=== PATIENT | female | born 1940 | race Caucasian/White ===

== ENCOUNTER → 2021-05-10 09:07 | Outpatient (CLI) | payer MEDICARE, SELFPAY ==
--- NOTE | ~2021-05-10 | US_ITS ---
EXAMINATION: US aorta DATE: 05/10/2021 09:35 INDICATION: Abdominal aortic aneurysm without rupture. TECHNIQUE: Grayscale, color Doppler, and pulsed Doppler images of the aorta and common iliac arteries were obtained. COMPARISON: None. FINDINGS: The proximal aorta measures 2.4 cm. The mid aorta measures 1.5 cm. The distal aorta measures 0.8 cm. There is scattered atherosclerotic plaque along the abdominal aorta. The right common iliac artery me asures 8 mm. The left common iliac artery measures 7 mm. IMPRESSION: 1. Normal caliber abdominal aorta. No evident aneurysm. Reviewed, dictated and finalized at location A. ET RESEARCH CONSULTANT
== END ==
DX: I71.4 Abdominal aortic aneurysm, without rupture (principal)
CPT/HCPCS: 76775

== ENCOUNTER 2021-09-23 08:50 | Emergency (ER) | payer MEDICARE, SELFPAY ==
--- NOTE | ~2021-09-23 | XR_ITS ---
XR chest 2V DATE: 09/23/2021 09:30 INDICATION: Cough for 4 days. Atrial fibrillation. TECHNIQUE: 2 views COMPARISON: None FINDINGS: Left dual lead pacemaker with leads overlying right atrium and right ventricle. Borderline heart size. Aortic calcification and mild unfolding. No hilar or mediastinal enlargement. No pulmonary infiltrate or consolidation, pleural effusion or pulmonary vascular congestion or pneumo thorax. Status post cholecystectomy. Osteopenia. IMPRESSION: Borderline heart size Dual-lead left-sided pacemaker Aortic atherosclerosis No active pulmonary disease Reviewed, dictated and finalized at location A.
[2021-09-23 08:58] VITALS: BP 119/93; PULSE 91; RESP 16; TEMP 36.8; O2SAT 100
--- NOTE | 2021-09-23 09:06 | ED.URI ---
HPI - URI/Sore Throat General Chief Complaint: Upper Respiratory Infection Stated Complaint: Sore Throat/Cough Time Seen by Provider: 09/23/21 09:23 Source: patient and RN notes reviewed Mode of arrival: ambulatory Limitations: no limitations History of Present Illness HPI Narrative: 81-year-old female presented for complaint of cough for 3 days. Endorses cough is productive of brown sputum. Also reports sinus pressure and nasal drainage, hoarse voice today. She denies associated shortness of breath, fever, chest pain or dizziness. History of A. fib, pacemaker, MD 2014. She has been taking Tussin and Tylenol for symptoms. She has not vaccinated for COVID. MD elicited complaint: cough Related Data Home Medications Medication Instructions Recorded Confirmed furosemide 20 mg tablet tablet 09/23/21 spironolactone 25 mg tablet tablet 09/23/21 Allergies Allergy/AdvReac Type Severity Reaction Status Date / Time codeine Allergy Intermediate rash and Verified 09/23/21 08:59 hives morphine Allergy Intermediate rash and Verified 09/23/21 08:59 hallucination Penicillins Allergy Intermediate rash and Verified 09/23/21 08:59 hives b/p meds Allergy Unknown Other Uncoded 07/28/18 18:11 Review of Systems Review of Systems: CONSTITUTIONAL: Denies malaise, chills, sweats, fever EYES: Denies visual changes, redness, or discharge ENT: Reports rhinorrhea, congestion, sinus pain, sore throat CARDIOVASCULAR: Denies chest pain, palpitations, edema RESPIRATORY: Reports cough Denies dyspnea GASTROINTESTINAL: Denies abdominal pain, nausea, vomiting, diarrhea SKIN: Denies rash or itching MUSCULOSKELETAL: Denies myalgia NEUROLOGIC: Denies headache Exam Narrative: GENERAL: Ill-appearing, nontoxic EYES: conjunctivae clear ENT: Mucous membranes moist. TMs pearly melchor with dull light reflex bilaterally; no tragal tenderness. CHEST: Clear to auscultation, breath sounds equal. HEART: Regular rate and rhythm. No murmur heard. SKIN: Warm, dry, no rash. NEURO: Alert and oriented x3. PSYCH: Normal mood and affect Course Course Emergency Course: Patient is aware of diagnosis, understands and agrees to treatment plan. Anticipatory guidance given. Patient agrees to follow-up as directed and is aware of reasons to seek care at the emergency department. Portions of this record may have been created with voice recognition software Level of Care: Express Care Visit Vital Signs Vital signs: Vital Signs Temperature 98.2 F 09/23/21 08:58 Pulse Rate 91 09/23/21 08:58 Respiratory Rate 16 09/23/21 08:58 Blood Pressure 119/93 H 09/23/21 08:58 Pulse Oximetry 100 09/23/21 08:58 Oxygen Delivery Room Air 09/23/21 08:58 Temperature 98.2 F 09/23/21 08:58 Pulse Rate 91 09/23/21 08:58 Respiratory Rate 16 09/23/21 08:58 Blood Pressure 119/93 H 09/23/21 08:58 Pulse Oximetry 100 09/23/21 08:58 Oxygen Delivery Room Air 09/23/21 08:58 reviewed MDM - URI/Sore Throat MDM Narrative Medical decision making narrative: covid and strep negative CXR borderline heart size, left-sided pacemaker, aortic atherosclerosis. No active pulmonary disease. Reviewed with patient. Patient reported dizziness during the chest x-ray. Walking O2 sat performed, maintain 98% on room air. Patient declined doxycycline, requesting azithromycin. She states she needs to establish new PCP. She is advised to go to the ER for any worsening symptoms or concerns. V/U. She is stable and appropriate for outpatient treatment and follow-up. Differential Diagnosis Differential diagnosis: Likely upper respiratory infection, sinusitis and viral infection Lab Data Labs: Lab Results 09/23/21 Range/Units 09:13 POC SARS CoV-2 Ag Negative (Negative) Strep Screen Presumptive Negative *(Reference Range: Negative)* Imaging Data Radiologist's impression:
== END 2021-09-23 10:22 | disposition home or self-care (01) ==
PROVIDERS: Emergency Provider Nurse Practitioner Family
DX: J06.9 Acute upper respiratory infection, unspecified (principal); Z20.822 Contact with and (suspected) exposure to COVID-19
CPT/HCPCS: 71046; 87081; 87426; 87880; 99203; C9803; G0463

== ENCOUNTER 2022-03-07 09:33 | Outpatient (CLI) | payer MEDICARE, SELFPAY ==
[2022-03-07 20:43] LABS: Alanine Aminotransferase 15 U/L (6-35); Albumin Level 4.6 g/dL (3.5-5.1); Alkaline Phosphatase 50 U/L (38-126); Anion Gap 6 mmol/L (8-16); Aspartate Amino Transferase 48 U/L (14-36); Bilirubin,Total 0.7 mg/dL (0.2-1.3); Blood Urea Nitrogen 11 mg/dL (7-17); Calcium 9.3 mg/dL (8.4-10.2); Carbon Dioxide 30 mmol/L (22-30); Chloride 103 mmol/L (98-107); Cholesterol 234 mg/dL (0-200); Estimated Glomerular Filt Rate > 60; Glucose 99 mg/dL (65-110); HDL Direct 39 mg/dL; Potassium 4.2 mmol/L (3.4-5.0); Sodium 139 mmol/L (137-145); Triglycerides 112 mg/dL (<150)
[2022-03-07 20:45] LABS: Basophils Absolute Auto 0.1 K/mm3 (0.0-0.1); Basophils Percent Auto 0.9 % (0.2-1.2); Eosinophils Absolute Auto 0.1 K/mm3 (0-0.3); Eosinophils Percent Auto 1.5 % (0-4.4); Hematocrit 48.1 % (37.0-47.0); Hemoglobin 15.3 g/dL (12.0-15.0); Immature Granulocyte Absolute 0.03 K/mm3 (0.00-0.031); Immature Granulocyte Percent A 0.3 % (0-0.5); Lymphocytes Absolute Auto 3.13 K/mm3 (0.9-3.2); Lymphocytes Percent Auto 35.4 % (18.3-44.2); Mean Corpuscular HGB Conc 31.8 g/dl (32-36); Mean Corpuscular Hemoglobin 31.4 pg (26-34); Mean Corpuscular Volume 98.6 fl (80-100); Mean Platelet Volume 10.4 fl (7.4-10.4); Monocytes Absolute Auto 0.7 K/mm3 (0.1-0.6); Neutrophils Absolute Auto 4.8 K/mm3 (1.3-6.7); Neutrophils Percent Auto 53.9 % (45.5-73.1); Platelet Count Result 275 k/mm3 (150-375); Red Blood Count 4.88 M/mm3 (4.2-5.4); Red Cell Distribution Width 13.2 % (11.5-14.5); White Blood Count 8.8 K/mm3 (4.5-10.0)
[2022-03-07 20:53] LABS: LDL Cholesterol Direct 139 mg/dL
== END 2022-03-07 09:34 | disposition home or self-care (01) ==
PROVIDERS: PCP Family Medicine; Visit Provider Family Medicine
DX: I70.0 Atherosclerosis of aorta (principal); I48.91 Unspecified atrial fibrillation
CPT/HCPCS: 36415; 80053; 80061; 85025

== ENCOUNTER 2022-07-03 11:08 | Outpatient (CLI) | payer MEDICARE, SELFPAY ==
--- NOTE | ~2022-07-03 | XR_ITS ---
XR chest 2V 07/03/2022 11:18 Indication: Cough Procedure: 2 view chest Comparison: 09/23/2021 Findings: Cardiomegaly. Pacemaker leads in expected position. No focal air space disease, pulmonary e alejandro, pleural effusion or suspected pneumothorax. Mild thoracic spondylosis. Impression: 1: No acute cardiopulmonary disease. Reviewed, dictated and finalized at location B. Impression: 1: No acute cardiopulmonary disease.
== END 2022-07-03 11:09 | disposition home or self-care (01) ==
PROVIDERS: PCP Family Medicine; Visit Provider Family Medicine
DX: J06.9 Acute upper respiratory infection, unspecified (principal); R05.9 Cough, unspecified
CPT/HCPCS: 71046

== ENCOUNTER 2023-02-03 12:02 | Outpatient (CLI) | payer MEDICARE, SELFPAY ==
--- NOTE | ~2023-02-03 | XR_ITS ---
Supine view of the abdomen Clinical history: Abdominal pain Findings: Bowel gas pattern is nonspecific. No evidence for obstruction or free air. No abnormal mass lesion or calcification is seen. Degenerative change of the lumbar spine noted. Impression: No significant abnormality is seen. Reviewed, dictated and finalized at [facility], [place]. NESS IMPROVEMENT MANAGER Impression: No significant abnormality is seen.
== END 2023-02-03 12:03 | disposition home or self-care (01) ==
PROVIDERS: PCP Family Medicine; Visit Provider Family Medicine
DX: K58.9 Irritable bowel syndrome, unspecified (principal)
CPT/HCPCS: 74018

== ENCOUNTER 2023-05-19 10:43 | Outpatient (CLI) | payer MEDICARE, SELFPAY ==
--- NOTE | ~2023-05-19 | XR_ITS ---
EXAMINATION: XR sinus min 3V INDICATION: Chronic sinusitis, unspecified TECHNIQUE: Five views of the paranasal sinuses are obtained. COMPARISON: None available FINDINGS: There is normal pneumatization of the paranasal sinuses. No sinus opacification is identifi ed. The facial bones are unremarkable. The nasal septum is midline. IMPRESSION: 1. No definite radiographic evidence of sinus disease. If there is high clinical suspicion for sinusi tis, CT of the sinuses is recommended. Reviewed, dictated and finalized at location B. ING SUPERVISOR IMPRESSION: 1. No definite radiographic evidence of sinus disease. If there is high clinica l suspicion for sinusitis, CT of the sinuses is recommended.
== END 2023-05-19 10:44 | disposition home or self-care (01) ==
PROVIDERS: PCP Family Medicine; Visit Provider Family Medicine
DX: J32.9 Chronic sinusitis, unspecified (principal)
CPT/HCPCS: 70220

== ENCOUNTER 2023-10-30 12:58 | Outpatient (CLI) | payer MEDICARE, SELFPAY ==
--- NOTE | 2023-10-30 14:52 | WPDPFTINT ---
PFT Procedure Performed PFT Procedure Performed Plethysmography (Lung Vol) Diffusing Cap (DLCO) Flow Vol Loop Spirometry w/o Bronchodil PFT Interpretation This is a pulmonary function test with spirometry, plethysmography and diffusing capacity. The test was performed and results interpreted in accordance with the 2019 and 2005 ATS/ERS Task Force guidelines respectively using the Global Lung Function Initiative-2012 reference equations. Patient demonstrated good effort and cooperation. Reproducibility criteria were met. The quality of the spirometry maneuver was Grade A. Findings: Spirometry: The contour the inspiratory and expiratory flow tracing are normal. The FVC is 1.83 L, 83% predicted. The FEV1 is 1.28 L, 76% predicted. The FEV1: FVC ratio 70%. Plethysmography: The total lung capacity is 3.25 L, 71% predicted. The functional residual capacity is 1.73 L, 65% predicted. The residual volume is 1.30 L, 57% predicted. Diffusing capacity: The diffusing capacity unadjusted for hemoglobin and carboxyhemoglobin is 15.7, 88% predicted. The diffusing capacity adjusted for alveolar volume is 5.06, 120% predicted. Impression: There is a mild restrictive ventilatory abnormality with a normal FEV1. The spirometry is normal without evidence of an obstructive abnormality. The diffusing capacity is normal. There are no prior studies for comparison
== END 2023-10-30 12:59 | disposition home or self-care (01) ==
LOC: ANHPFT 13:04
PROVIDERS: PCP Family Medicine; Visit Provider Family Medicine
DX: J98.4 Other disorders of lung (principal); I48.91 Unspecified atrial fibrillation; K58.9 Irritable bowel syndrome, unspecified; I50.9 Heart failure, unspecified
CPT/HCPCS: 94375; 94726; 94729

== ENCOUNTER 2024-01-15 13:42 | Emergency (ER) | payer MEDICARE, SELFPAY ==
[2024-01-15 14:03] VITALS: BP 105/59; PULSE 98; RESP 16; TEMP 36.4; O2SAT 99
--- NOTE | 2024-01-15 14:34 | ED.URI ---
HPI - URI/Sore Throat General Chief Complaint: Upper Respiratory Infection Stated Complaint: ears/sob/congestions Time Seen by Provider: 01/15/24 14:18 Source: patient, RN notes reviewed and old records reviewed Mode of arrival: ambulatory Limitations: no limitations History of Present Illness HPI Narrative: 83-year-old female to Express Care with complaint of bilateral ear fullness, decreased hearing, popping sounds for 5 days. Patient denies treating at home. Patient denies fever, pain, cough, sore, recent illness. Patient able to tolerate fluids by mouth. Patient resting comfortably in exam room in no acute distress. Respirations even and nonlabored. Related Data Home Medications Medication Instructions Recorded Confirmed apixaban 5 mg tablet (Eliquis) 5 mg PO DAILY 01/15/24 01/15/24 aspirin 81 mg tablet 81 mg PO DAILY 01/15/24 01/15/24 dapagliflozin propanediol 10 mg 10 mg PO DAILY 01/15/24 01/15/24 tablet (Farxiga) Allergies Allergy/AdvReac Type Severity Reaction Status Date / Time codeine Allergy Intermediate rash and Verified 12/10/23 10:43 hives morphine Allergy Intermediate rash and Verified 12/10/23 10:43 hallucination Penicillins Allergy Intermediate rash and Verified 12/10/23 10:43 hives amiodarone AdvReac Intermediate Abdominal Verified 12/10/23 10:43 Pain [id number] Reductase AdvReac Intermediate pain Verified 12/10/23 10:43 Inhibitor b/p meds Allergy Unknown Other Uncoded 12/10/23 10:43 Predisone Allergy Unknown Unknown Uncoded 12/10/23 10:43 Review of Systems Review of Systems: All systems reviewed & are unremarkable except as noted in HPI and below Constitutional: Constitutional: Reports no additional constitutional complaints Eyes: Eyes: Reports no additional eye complaints ENT: Reports as per HPI, Reports hearing loss ( Bilateral) and Reports other ( bilateral ear fullness and popping sound) Cardiovascular: Cardiovascular: Reports no additional cardiovascular complaints, Denies chest pain and Denies dyspnea Respiratory: Respiratory: Reports no additional respiratory complaints, Denies cough and Denies dyspnea Musculoskeletal: Musculoskeletal: Reports no additional musculoskeletal complaints Neurologic: Reports system reviewed and no additional complaints, except as documented Psychiatric: Psychiatric: Reports no additional psychiatric complaints [facility] Family History Family History Sibling Cancer Diabetes mellitus Heart disease Social History Social History Smoking status: Never smoker Alcohol intake: never Substance use: never Substance use type: does not use Do You Feel Safe in your Home?: Yes Lack of Transportation: No Lack of Food: Never True Current Housing: I Have Housing Concerned About Future Housing: No Difficulty Paying Gas/Electric Bills: No Difficulty Paying for Meds: No Currently Unemployed: No Education: High School Diploma/GED Difficulty w/ Childcare or Family Care: No Living arrangements: alone Occupation/Education: retired Gender identity (if verbalized by the patient): Female Sexual Orientation (if Verbalized by the Patient): Straight or Heterosexual Spiritual care concerns: No Agree to blood products: Yes Comments At the time of my signature, I reviewed and agree with the nursing past medical, surgical, social, and family history. There is no relevant family history pertinent to the patient complaint. Exam Const: General: cooperative, healthy appearing, no acute distress, well developed, alert, well groomed and well nourished Nutritional Appearance: well nourished Orientation/consciousness: patient oriented x3 Limitations: no limitations HENMT: Head: normal to inspection Ears: external ears normal, Abnormal EAC present EAC tenderness bilateral and TM abnormal bulging, dull bilateral, erythematous bilateral and with fluid behind the TM bilateral Face/Nose/Sinus: Normal external nose present, Normal nares present, normal facial exam, No erythema and No edema Face and sinus: normal facial exam, no erythema and no edema Mouth: Yes Normal oral and palatal mucosa present Eyes: General: appearance normal, both eyes and all related structures Neck: Neck: normal visual inspection, full ROM and no meningeal signs Lymphatic: no lymphadenopathy noted and no lymphedema noted Chest: Chest palpation & inspection: normal inspection of the chest Resp: Effort & Inspection: normal respiratory effort and able to speak in complete sentences Auscultation: clear to auscultation bilaterally Cardio: Jugular venous distension: no JVD Rate: regular rate Rhythm: regular rhythm Back/Spine/Pelvis: Cervical Spine: cervical ROM normal Skin: General skin exam: normal color, no rashes or lesions noted and turgor normal Neuro: General: patient oriented x3, gait normal, moves all extremities and no meningeal signs Speech: normal speech Gait exam (Neuro): Normal gait present Extrem: General: normal to inspection, full ROM and capillary refill normal Psych: Appearance: grossly normal and well kempt Course Course Emergency Course: Some parts of this dictation were generated by voice recognition software and may contain typographical and/or grammatical inaccuracies. Level of Care: Express Care Visit Vital Signs Vital signs: Vital Signs Temperature 36.4 C L 01/15/24 14:03 Pulse Rate 98 01/15/24 14:03 Respiratory Rate 16 01/15/24 14:03 Blood Pressure 105/59 L 01/15/24 14:03 Pulse Oximetry 99 01/15/24 14:03 Oxygen Delivery Room Air 01/15/24 14:03 Temperature 36.4 C L 01/15/24 14:03 Pulse Rate 98 01/15/24 14:03 Respiratory Rate 16 01/15/24 14:03 Blood Pressure 105/59 L 01/15/24 14:03 Pulse Oximetry 99 01/15/24 14:03 Oxygen Delivery Room Air 01/15/24 14:03 reviewed MDM - URI/Sore Throat MDM Narrative Medical decision making narrative: 83-year-old female to Express Care with complaint of bilateral ear fullness, decreased hearing, popping sounds for 5 days. Patient denies treating at home. Patient denies fever, pain, cough, sore, recent illness. Patient able to tolerate fluids by mouth. Patient resting comfortably in exam room in no acute distress. Respirations even and nonlabored. on exam, bilateral TMs erythematous, dull, with fluid behind TMs. Consistent with bilateral otitis media. Patient is sitting comfortably in exam room nontoxic in appearance. Patient appropriate for outpatient treatment and follow-up. Discharge instructions reviewed with patient, as well as provided in writing per nursing staff. The instructions also include specific and strict return/GO TO THE ER as well as f/u information. All questions have been answered, and the patient deny any further questions with discharge and discharge plan. Some parts of this dictation were generated by voice recognition software and may contain typographical and/or grammatical inaccuracies. Differential Diagnosis Differential diagnosis: Likely upper respiratory infection, croup, otitis media, sinusitis, viral infection, bronchitis, influenza and pharyngitis Discharge Plan Discharge Clinical Impression: Bilateral acute otitis media Patient Disposition: Home, Self-Care Condition: Stable Instructions: Ear Infection (ED) Additional Instructions: -Use Flonase twice a day for 5 days then daily to help reduce the inflammation and dry up your sinuses. -Be sure to drink plenty of water with these medications at least 8 ounces with every dose and it is important to drink 8 to 10 glasses of water per day. Water is a natural decongestant -Using a vaporizer or humidifier at night will also help thin secretions and help with coughing up phlegm. -Follow up with primary care provider in 2-3 days if condition is not improving; or seek ER visit if you have trouble breathing, cannot drink enough fluids, have muffled voice, difficulty opening your mouth, or severe swelling. Prescriptions: New azithromycin 250 mg tablet 250 mg PO DAILY Qty: 6 0RF Rx Instructions: 250 mg orally. Take TWO tablets today, then one tablet daily for 4 days. fluticasone propionate [Flonase Allergy Relief] 50 mcg/actuation spray,suspension 1 spray intranasal BID Qty: 16 0RF Rx Instructions: administer into each nostril No Action Eliquis 5 mg tablet 5 mg PO DAILY aspirin 81 mg Tablet 81 mg PO DAILY dapagliflozin propanediol [Farxiga] 10 mg Tablet 10 mg PO DAILY Zyrtec 10 mg capsule 10 mg PO DAILY PRN (Reason: allergy symptoms) Qty: 20 0RF sertraline 25 mg tablet 25 mg PO DAILY Qty: 30 1RF Hold Instructions: .Provider Order bisacodyl 5 mg tablet,delayed release (DR/EC) 5 mg PO QHS PRN (Reason: constipation) Qty: 20 0RF Rx Instructions: As needed for severe constipation may take 10mg if 5 mg does not work. metoprolol succinate 25 mg tablet extended release 24 hr 12.5 mg PO DAILY Qty: 90 1RF spironolactone 25 mg tablet 25 mg PO DAILY Qty: 90 1RF aspirin [Adult Low Dose Aspirin] 81 mg tablet,delayed release (DR/EC) 81 mg PO DAILY Qty: 90 1RF furosemide 20 mg tablet 20 mg PO QAM Qty: 90 1RF Follow-up/Referrals: Jaleel Mcgovern MD [Primary Care Provider] -
== END 2024-01-15 14:50 | disposition home or self-care (01) ==
PROVIDERS: Emergency Provider Nurse Practitioner Family; PCP Family Medicine
DX: H66.93 Otitis media, unspecified, bilateral (principal); I48.91 Unspecified atrial fibrillation; E78.00 Pure hypercholesterolemia, unspecified; I10 Essential (primary) hypertension; K21.9 Gastro-esophageal reflux disease without esophagitis; Z87.891 Personal history of nicotine dependence; I25.2 Old myocardial infarction; Z95.1 Presence of aortocoronary bypass graft
CPT/HCPCS: 99213; G0463

== ENCOUNTER 2024-02-04 12:37 | Emergency (ER) | payer MEDICARE, SELFPAY ==
--- NOTE | ~2024-02-04 | XR_ITS ---
EXAMINATION: [id number] DATE: 02/04/2024 13:18 INDICATION: Right rib pain post fall TECHNIQUE: A frontal inspiratory view of the chest and 3 views of the right ribs were obtained. COMPARISON: Chest radiograph dated 07/03/2022 FINDINGS: No rib fractures identified. Mild reticular opacities at the bilateral lung bases with suggestion of some peripheral Latia B lines at the right costophrenic angle suggesting mild pulmonary edema. Mild linear discoid atelectasis in the left midlung zone. There is blunting at the bilateral cardiophrenic angles. No pneumothorax. Cardiomegaly. Dual lead pacemaker seen with leads projecting over the expec vickie locations of the right atrium and right ventricle. Cholecystectomy clips in right upper quadrant. IMPRESSION: 1. No evident rib fractures. 2. Mild reticular opacities at the bilateral lung bases suggesting likely small bilateral pleural eff usions with combination of mild pulmonary edema and atelectasis. 2. Cardiomegaly. Reviewed, dictated and finalized at location B. [employer] [employer] IMPRESSION: 1. No evident rib fractures. 2. Mild reticular opacities at the bilateral lung bases suggesting likely small bilateral pleural effusions with combination of mild pulmonary edema and atele ctasis. 2. Cardiomegaly.
[2024-02-04 12:54] VITALS: BP 112/51; PULSE 80; RESP 20; TEMP 36.1; O2SAT 98
--- NOTE | 2024-02-04 13:02 | ED.FALL ---
HPI - Fall General Chief Complaint: Fall Stated Complaint: Fall Injury/Right Side Injury Source: patient, family, RN notes reviewed and old records reviewed Mode of arrival: ambulatory Limitations: no limitations History of Present Illness HPI Narrative: 83 year old female accompanied by daughter who presents to express care with complaints of falling in her kitchen about 20 minutes prior to arrival striking her right lateral chest area on the table with bruising and discomfort on palpation to area. Patient reports that she did not hit her head and denies any dizziness or any syncope causing fall, denies any LOC.. Patient reports that she was getting something out of her refrigerator and just lost her balance. Patient is on daily blood thinners and aspirin. MD complaint: fall (hit right lateral chest on table with bruising and tenderness) Onset (ago): minute(s) (20 minutes prior to arrival) Fall from: standing Fall witnessed: yes, by family Loss of consciousness: none Symptoms prior to fall: none Location of injury: chest (right lateral chest area ) Severity scale (1-10): 2 Related Data Home Medications Medication Instructions Recorded Confirmed apixaban 5 mg tablet (Eliquis) 5 mg PO DAILY 01/15/24 02/04/24 dapagliflozin propanediol 10 mg 10 mg PO DAILY 01/15/24 02/04/24 tablet (Farxiga) Allergies Allergy/AdvReac Type Severity Reaction Status Date / Time codeine Allergy Intermediate rash and Verified 02/04/24 13:00 hives morphine Allergy Intermediate rash and Verified 02/04/24 13:00 hallucination Penicillins Allergy Intermediate rash and Verified 02/04/24 13:00 hives amiodarone AdvReac Intermediate Abdominal Verified 02/04/24 13:00 Pain [id number] Reductase AdvReac Intermediate pain Verified 02/04/24 13:00 Inhibitor b/p meds Allergy Unknown Other Uncoded 01/21/24 11:03 Predisone Allergy Unknown Unknown Uncoded 01/21/24 11:03 Review of Systems Review of Systems: CONSTITUTIONAL: Denies fever, chills, or sweats. EYES: Denies visual changes, redness, or discharge. ENT: Denies rhinorrhea, congestion, sore throat, or otalgia. CARDIOVASCULAR: Reports right lateral chest tenderness, no palpitations, or edema. RESPIRATORY: Denies cough or dyspnea. GASTROINTESTINAL: Denies abdominal pain, nausea, vomiting, or diarrhea. GENITOURINARY: Denies dysuria or hematuria. SKIN: Denies rash or itching. MUSCULOSKELETAL: Denies back pain, joint pain, or myalgia. NEUROLOGIC: Denies headache, numbness, admits to some right sided weakness post CVA PSYCHIATRIC: Reports history of anxiety or depression. All systems reviewed & are unremarkable except as noted in HPI and below PMFSH Past Medical History Medical History (Updated 02/05/24 @ 12:26 by Briseyda Conn NP) Afib Anxiety Aortic aneurysm CAD (coronary artery disease) Congestive heart failure CVA (cerebral vascular accident) Elevated cholesterol Hypertension Pacemaker Surgical History Surgical History H/O heart artery stent History of cholecystectomy History of ERCP Family History Family History Sibling Cancer Diabetes mellitus Heart disease Social History Social History Smoking status: Former smoker Additional smoking assessment comments: quit many years ago 1975 Alcohol intake: never Substance use: never Substance use type: does not use Do You Feel Safe in your Home?: Yes Lack of Transportation: No Lack of Food: Never True Current Housing: I Have Housing Concerned About Future Housing: No Difficulty Paying Gas/Electric Bills: No Difficulty Paying for Meds: No Currently Unemployed: No Education: High School Diploma/GED Difficulty w/ Childcare or Family Care: No Living arrangements: alone Occupation/Education: retired Gender identity (if verbalized by the patient): Female Sexual Orientation (if Verbalized by the Patient): Straight or Heterosexual Spiritual care concerns: No Agree to blood products: Yes Comments At time of signature, agree with nursing past medical, surgical, social and family history. There is no relevant family history pertinent to the presenting complaint Exam Narrative: GENERAL: Well-appearing, well-nourished, and in no acute distress. HEAD: Normocephalic, atraumatic. EYES: PERRLA and EOMI. ENT: Nares clear, no rhinorrhea or epistaxis. Mucous membranes moist.TM's normal throat pink with no swelling or lesions. NECK: Supple. no lymphadenopathy CHEST: coarse bases on auscultation. No respiratory distress. discomfort to right lateral chest with bruising from fall, denies dyspnea, SAO2 98% on room air HEART: Irregular rate and rhythm. No murmur heard. Normal peripheral pulses. ABDOMEN: Soft, nontender, nondistended, normal active bowel sounds. EXTREMITIES: Normal range of motion. No edema. SKIN: Warm, dry, no rash. NEURO: No focal deficits. Alert and oriented x3 some residual right sided weakness from previous CVA . Course Course Emergency Course: Patient is aware of diagnosis, understands and agrees to treatment plan.? Anticipatory guidance given.? Patient agrees to follow-up as directed and is aware of reasons to seek care at the emergency department. Portions of this record may have been created with voice recognition software Level of Care: Express Care Visit Vital Signs Vital signs: Vital Signs Temperature 36.1 C L 02/04/24 12:54 Pulse Rate 80 02/04/24 12:54 Respiratory Rate 20 02/04/24 12:54 Blood Pressure 112/51 L 02/04/24 12:54 Pulse Oximetry 98 02/04/24 12:54 Oxygen Delivery Room Air 02/04/24 12:54 Temperature 36.1 C L 02/04/24 12:54 Pulse Rate 80 02/04/24 12:54 Respiratory Rate 20 02/04/24 12:54 Blood Pressure 112/51 L 02/04/24 12:54 Pulse Oximetry 98 02/04/24 12:54 Oxygen Delivery Room Air 02/04/24 12:54 Reviewed MDM - Fall Differential Diagnosis Differential diagnosis: Likely other (contusion to right chest wall, fracture ribs, bruising to right chest wall) Medical Records Attestation: I reviewed the patient's medical records. Imaging Data Attestation: I personally reviewed and interpreted this imaging study as follows: My impression: no evidence of rib fracture, bibasilar opacities suggestive of pleural effusions pulmonary edema atelectasis, cardiomegaly Radiologist's impression: Launch?Image [facility] [place] [employer] [place] [employer] [place] [address] XRay Report Signed Patient: Abena Giron : 1940 MR#: [id number] Age: 83 Acct:[id number] Loc: [facility] ADM Date: 02/04/24Attending Dr: Ordering Physician: Briseyda Conn APRN Date of Service: 02/04/24 Procedure(s): XR ribs RT w PA CXR Accession Number(s): [id number] cc: Jaleel Mcgovern MD; Briseyda Conn APRN~ EXAMINATION: [id number] DATE: 02/04/2024 13:18 INDICATION: Right rib pain post fall TECHNIQUE: A frontal inspiratory view of the chest and 3 views of the right ribs were obtained. COMPARISON: Chest radiograph dated 07/03/2022 FINDINGS: No rib fractures identified. Mild reticular opacities at the bilateral lung bases with suggestion of some peripheral Latia B lines at the right costophrenic angle suggesting mild pulmonary edema. Mild linear discoid atelectasis in the left midlung zone. There is blunting at the bilateral cardiophrenic angles. No pneumothorax. Cardiomegaly. Dual lead pacemaker seen with leads projecting over the expected locations of the right atrium and right ventricle. Cholecystectomy clips in right upper quadrant. IMPRESSION: 1. No evident rib fractures. 2. Mild reticular opacities at the bilateral lung bases suggesting likely small bilateral pleural effusions with combination of mild pulmonary edema and atelectasis. 2. Cardiomegaly. Reviewed, dictated and finalized at location B. ESTATE RENTAL AGENT Dictated By: Baljit Samuel MD 02/04/24 1319 Signed By: <Electronically signed by Baljit Samuel MD in OV> Critical Care Time Critical Care Time Critical Care Time: No Discharge Plan Discharge Clinical Impression: Contusion of right chest wall, Opacities of both lungs present on chest x-ray Patient Disposition: Home, Self-Care Condition: Stable Instructions: Antibiotic Form, Chest Wall Pain (ED) Additional Instructions: Increase fluids especially juices and water [id number] cough and cold medicine of your choice for your symptoms Tylenol for pain May use topical pain medication such being georges with lidocaine to right lateral chest heat to the face 20-30 minutes 4-6 times a day for pain Salt water gargles, throat lozenges or throat sprays as desired Antibiotic as directed--finished the medication Monitor for any fever Incentive spirometry Recommend follow-up chest x-ray in 3 weeks or sooner if needed If your symptoms persist, change or worsen significantly before you can contact your personal physician then please, without delay, go to the emergency department for further evaluation. Follow-up with PCP in 7-10 days or sooner if needed Prescriptions: New azithromycin 250 mg tablet See Rx Instructions .ROUTE .COMPLEX Qty: 6 0RF Rx Instructions: For 250 mg dose pack: take 500 mg today (day 1), then 250 mg for 4 days (days 2-5) No Action Eliquis 5 mg tablet 5 mg PO DAILY dapagliflozin propanediol [Farxiga] 10 mg Tablet 10 mg PO DAILY fluticasone propionate [Flonase Allergy Relief] 50 mcg/actuation spray,suspension 1 spray intranasal BID Qty: 16 0RF Rx Instructions: administer into each nostril Zyrtec 10 mg capsule 10 mg PO DAILY PRN (Reason: allergy symptoms) Qty: 20 0RF bisacodyl 5 mg tablet,delayed release (DR/EC) 5 mg PO QHS PRN (Reason: constipation) Qty: 20 0RF Rx Instructions: As needed for severe constipation may take 10mg if 5 mg does not work. sertraline 25 mg tablet 25 mg PO DAILY Qty: 90 1RF Hold Instructions: .Provider Order metoprolol succinate 25 mg tablet extended release 24 hr 12.5 mg PO DAILY Qty: 90 1RF spironolactone 25 mg tablet 25 mg PO DAILY Qty: 90 1RF aspirin [Adult Low Dose Aspirin] 81 mg tablet,delayed release (DR/EC) 81 mg PO DAILY Qty: 90 1RF furosemide 20 mg tablet 20 mg PO QAM Qty: 90 1RF ciprofloxacin HCl 500 mg tablet 500 mg PO Q12H Qty: 10 0RF Follow-up/Referrals: Jaleel Mcgovern MD [Primary Care Provider] - Time of Disposition: 13:50 Quality [place] Coma Scale Eyes: Open Verbal: Oriented and Alert Motor: Follows Commands [place] Coma Total Score: 15
== END 2024-02-04 13:00 | disposition home or self-care (01) ==
PROVIDERS: Emergency Provider Registered Nurse; PCP Family Medicine
DX: S20.211A Contusion of right front wall of thorax, initial encounter (principal); W19.XXXA Unspecified fall, initial encounter; R91.8 Other nonspecific abnormal finding of lung field; Z87.891 Personal history of nicotine dependence; I48.91 Unspecified atrial fibrillation; I25.10 Atherosclerotic heart disease of native coronary artery without angina pectoris; I11.0 Hypertensive heart disease with heart failure; I50.9 Heart failure, unspecified; E78.00 Pure hypercholesterolemia, unspecified; Z95.0 Presence of cardiac pacemaker; Z95.5 Presence of coronary angioplasty implant and graft; Z86.73 Personal history of transient ischemic attack (TIA), and cerebral infarction without residual deficits; Z79.01 Long term (current) use of anticoagulants
CPT/HCPCS: 71101; 99213; G0463

== ENCOUNTER 2024-02-27 09:54 | Outpatient (CLI) | payer MEDICARE, SELFPAY ==
--- NOTE | ~2024-02-27 | CT_ITS ---
CT of the Abdomen and Pelvis: Indication: Abdominal pain Technique: 2.5 mm axial scans were obtained through the abdomen and pelvis following intravenous adm inistration of 100 cc of Omnipaque 350. Dose reduction technique was used on this scan by utilizing a utomated exposure control and iterative reconstruction technique. The dose-length product (DLP) was 5 72.86 mGy-cm. Findings: Scans through the lung bases demonstrate moderate bilateral pleural effusions, with associ ated bibasilar atelectatic change. The liver, spleen, pancreas, adrenals and kidneys are within normal limits. Cholecystectomy clips are present. There are extensive atherosclerotic calcifications of the aorta and iliac vessels.. No lym phadenopathy. No bowel obstruction or bowel wall thickening. There is sigmoid diverticulosis. There is minimal hazi ness in the central mesentery. Images through the pelvis were performed. Urinary bladder unremarkable. No pelvic mass seen. Small am ount of pelvic free fluid present. Impression: Moderate bilateral pleural effusions with bibasilar atelectatic change. Small amount of pelvic free fluid, nonspecific. Diverticulosis without definite acute diverticulitis. Reviewed, dictated and finalized at location . RVISOR CONTACT LENS Impression: Moderate bilateral pleural effusions with bibasilar atelectatic change. Small amount of pelvic free fluid, nonspecific. Diverticulosis without definite acute diverticulitis.
[2024-02-27 10:26] LABS: Estimated Glomerular Filt Rate 60
== END 2024-02-27 09:55 | disposition home or self-care (01) ==
PROVIDERS: PCP Family Medicine; Visit Provider Nurse Practitioner Family
DX: J90 Pleural effusion, not elsewhere classified (principal); J98.11 Atelectasis; R19.00 Intra-abdominal and pelvic swelling, mass and lump, unspecified site; K57.90 Diverticulosis of intestine, part unspecified, without perforation or abscess without bleeding; R10.9 Unspecified abdominal pain
CPT/HCPCS: 74177; Q9967

== ENCOUNTER 2024-03-09 15:16 | Outpatient (CLI) | payer MEDICARE, SELFPAY ==
--- NOTE | ~2024-03-09 | XR_ITS ---
XR chest 2V 03/09/2024 15:35 Indication: Edema. Procedure: 2 view chest Comparison: 07/03/2022 Findings: Cardiomegaly. Stable pacemaker leads. Small pleural effusions. Bibasilar airspace disease, left greater than right. There is atherosclerosis of the aorta. Impression: 1: Bibasilar airspace disease may represent atelectasis and/or pneumonia. 2: Small pleural effusions, left greater than right. 3: Cardiomegaly. Reviewed, dictated and finalized at location B. SPECIALIST Impression: 1: Bibasilar airspace disease may represent atelectasis and/or pneumonia. 2: Small pleural effusions, left greater than right. 3: Cardiomegaly.
== END 2024-03-09 15:17 | disposition home or self-care (01) ==
LOC: MICIMG 15:20
PROVIDERS: PCP Family Medicine; Visit Provider Family Medicine
DX: J84.09 Other alveolar and parieto-alveolar conditions (principal); J90 Pleural effusion, not elsewhere classified; I51.7 Cardiomegaly; R60.9 Edema, unspecified
CPT/HCPCS: 71046

== ENCOUNTER 2024-03-25 13:50 | Outpatient (CLI) | payer MEDICARE, SELFPAY ==
--- NOTE | ~2024-03-25 | XR_ITS ---
CHEST RADIOGRAPH, PA AND LATERAL CLINICAL HISTORY: I50.9 - Heart failure, unspecified PT SOB . COMPARISON: 03/09/2024 TECHNIQUE: PA and lateral views of the chest. FINDINGS The left mid lung is partially obscured due to pacemaker generator. Wires project over the right atrium and right ventricle. The remainder of the cardiomediastinal silhouette is partially obscured. Redemonstration of a large left-sided pleural effusion, largely unchanged from previous study. Right basilar atelectasis is also noted. The remainder of the lungs are clear. IMPRESSION: Persistent large left-sided pleural effusion with right basilar atelectasis. Reviewed, dictated and finalized at location A. TRUCTION MILLWRIGHT
== END 2024-03-25 13:51 | disposition home or self-care (01) ==
PROVIDERS: PCP Family Medicine; Visit Provider Family Medicine
DX: I50.9 Heart failure, unspecified (principal); J98.11 Atelectasis
CPT/HCPCS: 71046

== ENCOUNTER 2024-04-01 12:19 | Outpatient (CLI) | payer MEDICARE, SELFPAY ==
--- NOTE | ~2024-04-01 | CT_ITS ---
EXAMINATION:CT diagnostic chest w con DATE: 04/01/2024 13:06 INDICATION: Pleural effusion, not elsewhere classified. TECHNIQUE: Computed tomography (CT) of the chest was performed with 75 mL Omnipaque 350 intravenous c ontrast. Automated exposure control and iterative reconstruction technique were employed. The dose-le ngth product (DLP) was 199.80 mGy-cm. COMPARISON: CT abdomen and pelvis 02/27/2024 FINDINGS: There are small right and moderate-sized left pleural effusions. There is bilateral atelect asis with a dependent predominance. Cardiomegaly is noted. There are coronary artery calcifications. No pericardial effusion. 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 There is a left chest wall pacer with leads in the right atrium and right ventricle. There are c hanges of cholecystectomy. There are bridging endplate osteophytes at multiple levels in the spine, c onsistent with diffuse idiopathic skeletal hyperostosis (DISH). IMPRESSION: 1. Small right and moderate-sized left pleural effusions. 2. 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 Reviewed, dictated and finalized at location A. T CONTROLLER
[2024-04-01 13:01] LABS: Estimated Glomerular Filt Rate > 60
== END 2024-04-01 12:20 | disposition home or self-care (01) ==
PROVIDERS: PCP Family Medicine; Visit Provider Family Medicine
DX: J90 Pleural effusion, not elsewhere classified (principal); I77.1 Stricture of artery
CPT/HCPCS: 71260; Q9967

== ENCOUNTER 2024-04-04 08:36 | Inpatient (IN) | payer MEDICARE, SELFPAY ==
[2024-04-04] VITALS (15 sets, daily range): BP systolic 122–140; BP diastolic 63–97; PULSE 75–97; RESP 13–26; TEMP 36.4; O2SAT 95–100
--- NOTE | ~2024-04-04 | XR_ITS ---
EXAMINATION: XR chest 1V portable DATE: 04/08/2024 09:31 INDICATION: Pleural effusion. TECHNIQUE: A single frontal view of the chest was obtained. COMPARISON: Chest single view 04/07/2024 FINDINGS: There are airspace opacities in the lower lung zones, left worse than right. No pleural eff usion or pneumothorax. Cardiomegaly is noted. There is a left chest wall pacer with leads in the righ t atrium and right ventricle. IMPRESSION: 1. Worsened airspace opacities in the lower lung zones, left worse than right, consistent with atelec tasis versus pneumonia. 2. Cardiomegaly. Reviewed, dictated and finalized at location A. ELECTRIC TRAIN REPAIRER IMPRESSION: 1. Worsened airspace opacities in the lower lung zones, left worse than right, consistent with atelectasis versus pneumonia. 2. Cardiomegaly.
--- NOTE | ~2024-04-04 | XR_ITS ---
EXAMINATION: [id number] DATE: 04/07/2024 10:53 INDICATION: Left pleural effusion status post thoracentesis. TECHNIQUE: A single frontal view of the chest was obtained. COMPARISON: Chest single view 04/04/2024 FINDINGS: There are small pleural effusions. There are airspace opacities in left lower lung zone. No pneumothorax. Cardiomegaly is noted. There is a left chest wall pacer with leads in the right atrium and right ventricle. Surgical clips in the right upper quadrant are likely from cholecystectomy. IMPRESSION: 1. Small pleural effusions with improvement on the left status post thoracentesis. 2. Airspace opacities in left lower lung zone with interval improvement, likely atelectasis. 3. Cardiomegaly. Reviewed, dictated and finalized at location A. CLING SORTER IMPRESSION: 1. Small pleural effusions with improvement on the left status post thoracentes is. 2. Airspace opacities in left lower lung zone with interval improvement, likely atelectasis. 3. Cardiomegaly.
--- NOTE | ~2024-04-04 | XR_ITS ---
XR chest 1V portable DATE: 04/04/2024 12:56 INDICATION: Shortness of breath. History of congestive heart failure. TECHNIQUE: Portable upright AP chest on 04/04/2024 at 1255 hours COMPARISON: 04/01/2024 CT chest 03/25/2024 2 view chest FINDINGS: Cardiomegaly. Aortic calcification and unfolding. Left dual-lead pacemaker with leads overlying right atrium and right ventricle. Small right pleural effusion. Mild to moderate left pleural effusion with associated compressive atel ectasis at the base of the lingula and left lower lobe. There is slight atelectasis at the right lung base. The lungs otherwise appear clear. Osteopenia. IMPRESSION: Cardiomegaly Aortic atherosclerosis Mild right and djnd-ev-cgjqowyr left pleural effusions with associated compressive atelectasis at the lung bases, left greater than right Osteopenia Little interval change since 03/25/2024 Reviewed, dictated and finalized at location A. E JUMPER IMPRESSION: Cardiomegaly Aortic atherosclerosis Mild right and brcj-ir-ksezdxgq left pleural effusions with associated compress kvng atelectasis at the lung bases, left greater than right Osteopenia Little interval change since 03/25/2024
--- NOTE | ~2024-04-04 | US_ITS ---
EXAMINATION: US thoracentesis DATE: 04/07/2024 10:57 INDICATION: pleural effusion TECHNIQUE: The procedure and its risks, benefits, and alternatives were discussed with the patient. P otential risks discussed included bleeding, infection, and pneumothorax. The patient understood the r isks and agreed to proceed. The skin was prepped and draped in sterile fashion. 1% lidocaine was used for local anesthesia. Under ultrasound guidance, a 5 Fr catheter with trochar was advanced into the left pleural effusion. Fluid was aspirated. The catheter was removed, and a dressing was applied. The re were no immediate complications. FINDINGS: Ultrasound images demonstrate a left pleural effusion and the catheter within the fluid. IMPRESSION: 1. Successful ultrasound-guided thoracentesis yielding 900 mL of xochitl-colored fluid. Reviewed, dictated and finalized at location A. DIRECTOR
--- NOTE | 2024-04-04 12:35 | ECG_ITS ---
Test Date: 2024-04-04 13:14:16 Measurements Intervals [place] Rate: 79 P: 0 DC: 0 QRS: -53 QRSD: 202 T: 112 QT: 485 QTc: 558 Interpretive Statements ELECTRONIC VENTRICULAR PACEMAKER ATYPICAL ECG No previous ECG available for comparison Electronically Signed On 04-04-2024 15:34:46 ACQUISITION ANALYST by Kraig Josue M.D.
[2024-04-04 12:59] LABS: Basophils Absolute Auto 0.1 K/mm3 (0.0-0.1); Basophils Percent Auto 0.9 % (0.2-1.2); Eosinophils Absolute Auto 0.1 K/mm3 (0-0.3); Eosinophils Percent Auto 0.8 % (0-4.4); Hemoglobin 16.4 g/dL (12.0-15.0); Immature Granulocyte Absolute 0.02 K/mm3 (0.00-0.031); Immature Granulocyte Percent A 0.3 % (0-0.5); Lymphocytes Absolute Auto 1.77 K/mm3 (0.9-3.2); Mean Corpuscular HGB Conc 32.8 g/dl (32-36); Mean Corpuscular Hemoglobin 31.1 pg (26-34); Mean Corpuscular Volume 94.7 fl (80-100); Mean Platelet Volume 11.6 fl (7.4-10.4); Monocytes Absolute Auto 0.5 K/mm3 (0.1-0.6); Monocytes Percent Auto 7.3 % (2.6-8.5); Neutrophils Percent Auto 62.7 % (45.5-73.1); Platelet Count Result 244 k/mm3 (150-375); Red Blood Count 5.28 M/mm3 (4.2-5.4); Red Cell Distribution Width 19.1 % (11.5-14.5); White Blood Count 6.3 K/mm3 (4.5-10.0)
--- NOTE | 2024-04-04 13:37 | ED.SOB ---
HPI - SOB/Dyspnea General Chief Complaint: Shortness of Breath/Dyspnea Stated Complaint: sob Time Seen by Provider: 04/04/24 12:46 Source: patient and family (Two daughters) Mode of arrival: ambulatory Limitations: no limitations History of Present Illness HPI Narrative: Patient presents with shortness of breath. She denies any chest pain. She has a history of heart failure for which she was started on Entresto 2 months ago and also takes spironolactone. In addition she previously took Lasix 20 mg daily although this was recently changed by her primary care physician to be 40 mg daily. She did not yet take this morning's dose however. Patient notes her shortness of breath is particularly exertional but also even at rest with things like leaning forward. She hs a pacemaker in place, previously had AFib. She denies any orthopnea. She does not know if she has paroxysmal nocturnal dyspnea she states that lately she has been having difficulty sleeping. She has had a cough although she states that this is chronic and there have been no acute changes. Denies any fevers. She had an outpatient CT performed that showed pleural effusions. Patient is also on Farxiga and Eliquis, she took both of these this morning. Her pediatrician/medical doctor is Dr. Soares and her PCP is Dr Jaleel Mcgovern. She states her primary care physician wanted her to see/be referred to a data warehouse manager. Related Data Home Medications ?Medication ?Instructions ?Recorded ?Confirmed ?Last Taken ?Type apixaban 5 mg tablet (Eliquis) 5 mg PO DAILY 01/15/24 02/04/24 Unknown History dapagliflozin propanediol 10 mg 10 mg PO DAILY 01/15/24 02/04/24 Unknown History tablet (Farxiga) Allergies Allergy/AdvReac Type Severity Reaction Status Date / Time codeine Allergy Intermediate rash and Verified 03/25/24 12:49 hives morphine Allergy Intermediate rash and Verified 03/25/24 12:49 hallucination Penicillins Allergy Intermediate rash and Verified 03/25/24 12:49 hives amiodarone AdvReac Intermediate Abdominal Verified 03/25/24 12:49 Pain Wzezrih-FMI-RbO Reductase AdvReac Intermediate pain Verified 03/25/24 12:49 Inhibitor b/p meds Allergy Unknown Other Uncoded 03/25/24 12:49 Predisone Allergy Unknown Unknown Uncoded 03/25/24 12:49 PMFSH Past Medical History Medical History (Updated 04/04/24 @ 21:24 by Ginger Ledbetter MD) Peripheral vascular disease Hyperlipidemia Cerebrovascular accident (07/2022) status post TNK mechanical thrombectomy Chronic anticoagulation Atrial fibrillation h/o Coronary artery disease Heart failure with reduced ejection fraction Aortic aneurysm Hypertension Anxiety Surgical History Surgical History History of permanent cardiac pacemaker placement History of coronary artery stent placement History of ERCP History of cholecystectomy Family History Family History Sibling Cancer Diabetes mellitus Heart disease Social History Social History Social History: Has 4 daughters Surrogate medical decision maker: Mari Jara, daughter. Code status: Do not resuscitate. Smoking status: Former smoker Additional smoking assessment comments: quit in 1974 Alcohol intake: never Substance use: never Substance use type: does not use Do You Feel Safe in your Home?: Yes Lack of Transportation: No Lack of Food: Never True Current Housing: I Have Housing Concerned About Future Housing: No Difficulty Paying Gas/Electric Bills: No Difficulty Paying for Meds: No Currently Unemployed: No Education: High School Diploma/GED Difficulty w/ Childcare or Family Care: No Living arrangements: alone Occupation/Education: retired Spiritual care concerns: No Agree to blood products: Yes Exam Narrative: GENERAL: Well-appearing, well-nourished, and in no acute distress. HEAD: Normocephalic, atraumatic. EYES: Non injected, non icteric ENT: Nares clear, no rhinorrhea or epistaxis. NECK: Supple. CHEST: Speaking in full sentences. No respiratory distress. Pacemaker in place left anterior chest. Lungs are clear to auscultation without appreciable crackles although they are diminished at the bases HEART: Regular rate and rhythm. ABDOMEN: Soft, nondistended. EXTREMITIES: Normal range of motion. 2+ bilateral lower extremity edema. SKIN: Warm, dry, no rash. NEURO: No focal deficits. Alert and oriented x3. PSYCH: Normal mood and affect. Course Vital Signs Vital signs: Vital Signs Temperature 97.6 F 04/04/24 08:46 Pulse Rate 79 04/04/24 08:46 Respiratory Rate 20 04/04/24 08:46 Blood Pressure 125/63 04/04/24 08:46 Pulse Oximetry 100 04/04/24 08:46 Temperature 97.5 F L 04/04/24 21:04 Pulse Rate 77 04/04/24 21:04 Respiratory Rate 21 H 04/04/24 21:04 Blood Pressure 122/65 04/04/24 21:04 Pulse Oximetry 98 04/04/24 21:04 Oxygen Delivery Room Air 04/04/24 19:50 MDM - SOB/Dyspnea MDM Narrative Medical decision making narrative: Patient presents with shortness of breath that is exertional as as sometimes at rest but particular such as leaning forward. She has a history of heart failure for which she is on Entresto, spironolactone Lasix Farxiga. In the emergency department they are afebrile with vital signs within normal limits. Considered PE but Will defer ordering D dimer at this time given other conditions felt to be more likely and given she is already on Elliquis. BNP is elevated And chest x-ray and earlier CT do suggest that she needs increased diuresis. She had previously been on 20 mg daily furosemide but this had been increased to 40 mg daily recently. SHe did not take this morning's dose. Will give 40 mg IV. Elevated hemoglobin and hematocrit, possibly due to a degree of hemoconcentration. Patient is hypokalemic. Will replete and obtain magnesium level. This is normal. Urinalysis shows glucosuria and ketonuria but does not otherwise appear infected. However, she does have a very liquid stool. Stool culture and C diff ordered. Negative for C diff. I do believe patient further diuresis with possible consideration of thoracentesis. Discussed this plan with the patient and her daughters who are in agreement. Patient amenable to staying. She does confirm that in the event of cardiopulmonary arrest, she would prefer a natural and chest compressions and intubation are not in line with values/goals/wishes/desires. patient discussed with networks computer consultant hospitalist Pratibha. Patient will be admitted med surg (with telemetry given edema). Differential Diagnosis Differential diagnosis: Likely congestive heart failure (Acute exacerbation of), community acquired pneumonia, pulmonary embolism ((considered, as above)) and other (ACS, acute viral syndrome, bronchitis) Medical Records Attestation: I reviewed the patient's medical records. Medical records narrative: CT imaging from 04/01/2024 shows 1. Small right and moderate-sized left pleural effusions. 2. 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 Lab Data Attestation: I reviewed the patient's lab results. 04/04/24 12:54 04/04/24 13:29 Labs: Lab Results 04/04/24 04/04/24 04/04/24 Range/Units 12:54 13:29 14:00 WBC 6.3 (4.5-10.0) K/mm3 RBC 5.28 (4.2-5.4) M/mm3 Hgb 16.4 H (12.0-15.0) g/dL Hct 50.0 H (37.0-47.0) % MCV 94.7 (80-100) fl MCH 31.1 (26-34) pg MCHC 32.8 (32-36) g/dl RDW 19.1 H (11.5-14.5) % Plt Count 244 (150-375) k/mm3 MPV 11.6 H (7.4-10.4) fl Immature Gran % (Auto) 0.3 (0-0.5) % Neut % (Auto) 62.7 (45.5-73.1) % Lymph % (Auto) 28.0 (18.3-44.2) % [place] % (Auto) 7.3 (2.6-8.5) % Eos % (Auto) 0.8 (0-4.4) % Baso % (Auto) 0.9 (0.2-1.2) % Lymph # (Auto) 1.77 (0.9-3.2) K/mm3 [place] # (Auto) 0.5 (0.1-0.6) K/mm3 Eos # (Auto) 0.1 (0-0.3) K/mm3 Baso # (Auto) 0.1 (0.0-0.1) K/mm3 Abs Immat Gran (auto) 0.02 (0.00-0.031) K/mm3 Absolute Neuts (auto) 4.0 (1.3-6.7) K/mm3 Absolute Nucleated RBC 0.000 (0.0-0.012) K/mm3 Nucleated RBC % 0.0 (0.0-0.2) % PT 20.6 H (11.1-14.7) Seconds INR 1.7 APTT 33.2 (22.3-36.8) Seconds Sodium 138 (137-145) mmol/L Potassium 3.1 L (3.4-5.0) mmol/L Chloride 101 (98-107) mmol/L Carbon Dioxide 32 H (22-30) mmol/L Anion Gap 5 (4-12) mmol/L BUN 9 (7-17) mg/dL Creatinine 0.55 L (0.7-1.0) mg/dL Estim Creat Clear Calc Not Reportable Estimated GFR > 60 (59 - ) Glucose 95 (65-110) mg/dL Calcium 9.0 (8.4-10.2) mg/dL Magnesium 2.0 (1.6-2.3) mg/dL Total Bilirubin 1.5 H (0.2-1.3) mg/dL Direct Bilirubin 0.0 (0-0.3) mg/dL Indirect Bilirubin 0.8 (0-1.1) mg/dL AST 24 (14-36) U/L ALT 9 (6-35) U/L Alkaline Phosphatase 45 (38-126) U/L Troponin I < 0.012 (0.000-0.034) ng/mL NT-Pro-B Natriuret Pep 6230 H (19.9-100) pg/mL Total Protein 7.0 (6.3-8.2) g/dL Albumin 3.7 (3.5-5.1) g/dL Influenza A (RT-PCR) Negative (Negative) Influenza B (RT-PCR) Negative (Negative) RSV (RT-PCR) Negative (Negative) SARS-CoV-2 RNA (RT-PCR) Negative (Negative) Imaging Data Radiologist's impression: Impressions Chest X-Ray 04/04/24 13:11 IMPRESSION: Cardiomegaly Aortic atherosclerosis Mild right and omoc-cd-oyqqrkst left pleural effusions with associated compressive atelectasis at the lung bases, left greater than right Osteopenia Little interval change since 03/25/2024 ECG Data EKG #1: Attestation: I personally reviewed and interpreted this ECG as follows: ECG completion date: 04/04/24 ECG completion time: 13:14 Interpretation: Paced rhythm at a ventricular rate of 79 beats per minute. QRS 202 (wide), QT/QTC 485/520 (prolonged). No T-wave inversions. Poor R-wave progression across the precordial leads. left axis Discharge Plan Discharge Clinical Impression: Pacemaker, Shortness of breath, Aortic atherosclerosis, Acute exacerbation of chronic heart failure, Elevated hemoglobin, Glucosuria, Ketonuria, Liquid stool Patient Disposition: Still a Patient Condition: Stable
[2024-04-04 13:45] LABS: Alanine Aminotransferase 9 U/L (6-35); Albumin Level 3.7 g/dL (3.5-5.1); Alkaline Phosphatase 45 U/L (38-126); Anion Gap 5 mmol/L (4-12); Aspartate Amino Transferase 24 U/L (14-36); Bilirubin,Total 1.5 mg/dL (0.2-1.3); Blood Urea Nitrogen 9 mg/dL (7-17); Carbon Dioxide 32 mmol/L (22-30); Chloride 101 mmol/L (98-107); Estimated Glomerular Filt Rate > 60; Glucose 95 mg/dL (65-110); Potassium 3.1 mmol/L (3.4-5.0); Sodium 138 mmol/L (137-145)
[2024-04-04 13:46] LABS: INR 1.7; Partial Thromboplastin Time 33.2 Seconds (22.3-36.8); Prothrombin Time 20.6 Seconds (11.1-14.7)
[2024-04-04 13:56] LABS: NT Pro B Type Natriuretic Pept 6230 pg/mL (19.9-100); Troponin I < 0.012 ng/mL (0.000-0.034)
[2024-04-04 14:40] LABS: Influenza A QL RT-PCR Negative (Negative); Influenza B QL RT-PCR Negative (Negative); RSV RNA, RT-PCR Negative (Negative); SARS-CoV-2 RNA PCR Negative (Negative)
[2024-04-04] MEDS: POTASSIUM BICARBONATE 25 MEQ TABEF 50 MEQ PO (14:57)
[2024-04-04] MEDS: FUROSEMIDE INJ 40 MG/4 ML VIAL IV PUSH (15:01)
[2024-04-04 15:04] LABS: Bilirubin Indirect 0.8 mg/dL (0-1.1)
--- NOTE | 2024-04-04 15:40 | PM.IMHP ---
H&P: HPI History of Present Illness Date/Time: 04/04/24 15:40 Chief Complaint: Shortness of breath. Narrative: This is an 83-year-old female with history of coronary artery disease, atrial fibrillation on chronic anticoagulation, status post permanent pacemaker implantation, heart failure with reduced ejection fraction as low as 20% for which she has refused ICD, peripheral vascular disease, and stroke in July 2022 status post TNK and mechanical thrombectomy of a left M1 occlusion who presented to the emergency department via private vehicle for evaluation of shortness of breath. The patient provides the following history. She initially noticed shortness of breath with exertion over the summer when she was outside working in her yard. Towards the middle part of January she began to develop dyspnea on lesser and lesser exertion as well as lower extremity edema and orthopnea. She saw her doctor in mid February who increased her furosemide dose and she has some noticeable improvement in the swelling however the shortness of breath and orthopnea remained. Last week she saw him again in follow-up and had labs and imaging done and today she was referred to the ED as her CT scan showed bilateral pleural effusions, worse on the left. She denies syncope, near syncope, fever, chills, sweats, chest and pleuritic pain, palpitations, paroxysmal nocturnal dyspnea, nausea, vomiting, and calf pain. In the ED: She was afebrile on arrival with stable vital signs. Labs are significant for hemoglobin of 16.4, potassium 3.1, carbon dioxide 32, creatinine 0.55, total bilirubin 1.5, proBNP 6230, troponin less than 0.012. Chest x-ray showed mild right and iacx-fl-azjwdqsb left pleural effusions with little interval change since 03/25/2024. EKG showed a ventricular paced rhythm. She was given furosemide 40 mg IV and potassium bicarbonate 50 mEq p.o.. Not long thereafter she had several episodes of watery brown stool and with further questioning she denies recent antibiotic use and sick contacts. Review of Systems Review of Systems: 12 systems were reviewed and are negative except for as per HPI. [facility] Past Medical History Medical History (Updated 04/04/24 @ 23:06 by Pratibha Chappell PA-C) Peripheral vascular disease Hyperlipidemia Cerebrovascular accident (07/2022) status post TNK mechanical thrombectomy residual right-sided weakness Chronic anticoagulation Atrial fibrillation h/o Coronary artery disease Heart failure with reduced ejection fraction Aortic aneurysm Hypertension Anxiety Surgical History Surgical History History of permanent cardiac pacemaker placement History of coronary artery stent placement History of ERCP History of cholecystectomy Family History Family History Sibling Cancer Diabetes mellitus Heart disease Social History Social History (Updated 04/04/24 @ 23:02 by Pratibha Chappell PA-C) Social History: Surrogate medical decision maker: ?All of her children? Code status: Do not resuscitate. Smoking status: Former smoker Additional smoking assessment comments: quit in 1974 Alcohol intake: never Substance use: never Substance use type: does not use Do You Feel Safe in your Home?: Yes Lack of Transportation: No Lack of Food: Never True Current Housing: I Have Housing Concerned About Future Housing: No Difficulty Paying Gas/Electric Bills: No Difficulty Paying for Meds: No Currently Unemployed: No Education: High School Diploma/GED Difficulty w/ Childcare or Family Care: No Living arrangements: alone Additional living arrangements comments: She lives alone. She has 4 daughters and 2 sons. Occupation/Education: retired Additional occupation/education comments: Retired, previously worked for [employer]. Spiritual care concerns: No Agree to blood products: Yes Meds Home Medications and Allergies Home Medications ?Medication ?Instructions ?Recorded ?Confirmed ?Type cetirizine 10 mg capsule (Zyrtec) 10 mg PO DAILY PRN allergy 05/29/22 02/04/24 Rx symptoms #20 caps spironolactone 25 mg tablet 25 mg PO DAILY #90 tabs 01/31/23 02/04/24 Rx aspirin 81 mg tablet,delayed 81 mg PO DAILY #90 tabs 05/26/23 02/04/24 Rx release (Adult Low Dose Aspirin) bisacodyl 5 mg tablet,delayed 5 mg PO QHS PRN constipation #20 12/10/23 02/04/24 Rx release tabs apixaban 5 mg tablet (Eliquis) 5 mg PO DAILY 01/15/24 02/04/24 History dapagliflozin propanediol 10 mg 10 mg PO DAILY 01/15/24 02/04/24 History tablet (Farxiga) fluticasone propionate 50 1 spray intranasal BID #16 grams 10/24/24 11/13/24 Rx mcg/actuation nasal spray,suspension (Flonase Allergy Relief) sertraline 25 mg tablet 25 mg PO DAILY #90 tabs 01/21/24 02/04/24 Rx azithromycin 250 mg tablet See Rx Instructions PO .COMPLEX #6 02/04/24 Rx tabs ciprofloxacin HCl 500 mg tablet 500 mg PO Q12H #10 tabs 02/05/24 Rx azithromycin 250 mg tablet See Rx Instructions PO .COMPLEX #6 03/09/24 Rx (Zithromax) tabs furosemide 20 mg tablet 20 mg PO QAM #90 tabs 03/10/24 Rx Allergies Allergy/AdvReac Type Severity Reaction Status Date / Time codeine Allergy Intermediate rash and Verified 03/25/24 12:49 hives morphine Allergy Intermediate rash and Verified 03/25/24 12:49 hallucination Penicillins Allergy Intermediate rash and Verified 03/25/24 12:49 hives amiodarone AdvReac Intermediate Abdominal Verified 03/25/24 12:49 Pain Vlcphnl-IRF-MzU Reductase AdvReac Intermediate pain Verified 03/25/24 12:49 Inhibitor b/p meds Allergy Unknown Other Uncoded 03/25/24 12:49 Predisone Allergy Unknown Unknown Uncoded 03/25/24 12:49 Vital Signs Vital Signs - 24 hr 04/04/24 08:46 04/04/24 12:30 04/04/24 12:45 Temperature 97.6 F Pulse Rate 79 81 Respiratory Rate 20 16 Blood Pressure 125/63 136/81 Pulse Oximetry 100 97 100 Oxygen Delivery Room Air 04/04/24 13:15 Temperature Pulse Rate 81 Respiratory Rate 16 Blood Pressure 128/75 Pulse Oximetry 97 Oxygen Delivery Exam Narrative: General: Well-developed, nontoxic-appearing elderly female sitting up in bed in no acute distress. She is in good spirits. Weight: 69.4 kg. BMI: 28.9. HEENT: PERRL, extraocular motions intact although she is unable to gaze laterally with her right eye since her previous stroke. Sclera anicteric. Oral mucosa moist. Neck: Supple. No significant JVD. Respiratory: Respirations are nonlabored and she is speaking in full sentences. Lung sounds are diminished at the bases, left greater than right. Cardiovascular: Regular rate and rhythm with S1-S2. Pacemaker in the left subclavicular space. Gastrointestinal: Abdomen is soft, nontender, and nondistended with positive bowel sounds. Skin: Warm and dry. No rash or lesions on limited exam. Extremities: No cyanosis or clubbing. 2+ edema in the calves, no palpable knots or cords. Neurological: Alert. Cranial nerves 2-12 are grossly intact. No gross focal deficits to casual conversation. Psychiatric: Pleasant and cooperative with normal mood and affect. Judgment and insight intact. H&P: Results Labs Labs: Short CBC 04/04/24 Range/Units 12:54 WBC 6.3 (4.5-10.0) K/mm3 Hgb 16.4 H (12.0-15.0) g/dL Hct 50.0 H (37.0-47.0) % Plt Count 244 (150-375) k/mm3 BMP 04/04/24 13:29 Sodium 138 Potassium 3.1 L Chloride 101 Carbon Dioxide 32 H BUN 9 Creatinine 0.55 L Glucose 95 Calcium 9.0 Cardiac Enzymes 04/04/24 Range/Units 13:29 Troponin I < 0.012 (0.000-0.034) ng/mL Liver Function 04/04/24 Range/Units 13:29 Total Bilirubin 1.5 H (0.2-1.3) mg/dL Direct Bilirubin 0.0 (0-0.3) mg/dL AST 24 (14-36) U/L ALT 9 (6-35) U/L Alkaline Phosphatase 45 (38-126) U/L Albumin 3.7 (3.5-5.1) g/dL Assessment and Plan Assessment and plan (1) CHF exacerbation: Code(s): I50.9 - Heart failure, unspecified Status: Acute (2) Heart failure with reduced ejection fraction: Code(s): I50.20 - Unspecified systolic (congestive) heart failure Status: Acute (3) Atrial fibrillation: Code(s): I48.91 - Unspecified atrial fibrillation Status: Acute (4) Chronic anticoagulation: Code(s): Z79.01 - truck terminal manager (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 Labs, imaging, EKG, and all reports were personally reviewed. Furosemide was increased several weeks ago without much benefit and she is being admitted for IV diuresis. She may end up needing a thoracentesis on the left depending on how she responds. Hold apixaban in anticipation. Potassium will be replaced and monitored. Follow daily weights and I/O. Cardiology has been consulted and their input is appreciated. Left subclavian artery occlusion is unknown finding, documented on the a discharge summary she in July 2022, for which she can be followed up by vascular surgeon as she is not having any acute issues at this time. Hemoglobin is 16.4 and has been a bit elevated in the past. Blood pressures were reviewed and they are stable. Send stool for C diff as she has had 3 loose stools this evening. Her home medications will be reviewed and resumed as appropriate. Findings and treatment plan were discussed with the patient. Questions were solicited and answered to satisfaction. The patient's medical management will be taken over by the hospitalist team in a.m. Quality VTE Prophylaxis VTE prophylaxis: mechanical ordered If No VTE Prophylaxis Answer both mechanical and pharmacologic: Reason no pharmacologic proph: medical contraindication (hold apixaban as she may need thoracentesis) The patient has been admitted under observation status. Hospitalist MIPS Advance Care Plan I have confirmed that the patient's Advanced Care Plan is present, code status is documented, or surrogate decision maker is listed in patient medical record.: Yes Medication Reconciliation I have utilized all available resources to obtain, update and review the patients current medications (includes all prescriptions, OTC, herbals, cannabis, and nutritional supplements).: Yes
[2024-04-04 15:49] LABS: Add Urine Microscopic? YES; Appearance Urine Cloudy (Clear); Bacteria Urine None Seen /hpf; Bilirubin Urine Negative (Negative); Blood Urine 2+ (Negative); Color Urine Dark Yellow (Yellow); Glucose Urine UA 3+ mg/dL (Negative); Ketones Urine 2+ mg/dL (Negative); Leukocyte Esterase Ur Negative LEU/UL (Negative); Nitrate Urine Negative (Negative); Non Pathogenic Casts 0-2; Protein Urine Trace mg/dL (Negative); Squamous Epithelial Cell Urine Few /hpf (Few); WBC Urine 0-5 /hpf (0-3); pH Urine 5.5 (5.0-9.0)
[2024-04-04 20:20] LABS: Toxigenic C. Diff NEGATIVE (NEGATIVE)
[2024-04-05] VITALS (19 sets, daily range): BP systolic 99–138; BP diastolic 48–81; PULSE 76–97; RESP 16–23; TEMP 36.4–36.8; O2SAT 94–100; BMI 29.7
[2024-04-05 05:16] LABS: Hematocrit 45.3 % (37.0-47.0); Hemoglobin 14.8 g/dL (12.0-15.0); Mean Corpuscular HGB Conc 32.7 g/dl (32-36); Mean Corpuscular Hemoglobin 31.4 pg (26-34); Mean Platelet Volume 10.6 fl (7.4-10.4); Platelet Count Result 217 k/mm3 (150-375); Red Blood Count 4.72 M/mm3 (4.2-5.4); Red Cell Distribution Width 18.3 % (11.5-14.5)
[2024-04-05 05:26] LABS: Alanine Aminotransferase 9 U/L (6-35); Albumin Level 3.5 g/dL (3.5-5.1); Alkaline Phosphatase 41 U/L (38-126); Anion Gap 6 mmol/L (4-12); Aspartate Amino Transferase 22 U/L (14-36); Bilirubin,Total 1.2 mg/dL (0.2-1.3); Blood Urea Nitrogen 12 mg/dL (7-17); Calcium 8.7 mg/dL (8.4-10.2); Carbon Dioxide 33 mmol/L (22-30); Chloride 100 mmol/L (98-107); Estimated CRCL calculation 53 ml/min; Estimated Glomerular Filt Rate > 60; Glucose 97 mg/dL (65-110); Magnesium 1.8 mg/dL (1.6-2.3); Potassium 3.3 mmol/L (3.4-5.0); Sodium 139 mmol/L (137-145)
[2024-04-05 05:28] LABS: INR 1.3; Prothrombin Time 16.7 Seconds (11.1-14.7)
[2024-04-05] MEDS: FUROSEMIDE INJ 40 MG/4 ML VIAL IV PUSH ×2 (10:27→17:03)
--- NOTE | 2024-04-05 16:23 | ADMGEN ---
This patient, Abena Giron, was admitted to Medical Room 248-. Patient/family oriented to hospital policies and general routines including ID bracelet, bed and alarms, visiting hours, pain management, procedures, bathroom and other care routines, personal items, smoking policy, room service/diet, and visiting hours. Information on how to activate the Rapid Response Team has been discussed. Patient/Family are encouraged to report perceived risks to care and to ask questions if they do not understand what they are told or what they should do.
--- NOTE | 2024-04-05 17:11 | P.PNIM_ITS ---
Progress Note: A&P Assessment and Plan (1) Acute hypoxic respiratory failure: Code(s): J96.01 - Acute respiratory failure with hypoxia Status: Acute Assessment and Plan: - Likely related to below. - Currently on RA with sats > 95 %. - Further mgt as # 2. (2) CHF exacerbation: Code(s): I50.9 - Heart failure, unspecified Status: Acute Assessment and Plan: CXR: IMPRESSION: Cardiomegaly Aortic atherosclerosis Mild right and vwaz-uf-xsfumclt left pleural effusions with associated compressive atelectasis at the lung bases, left greater than right Osteopenia. - BNP 6230. - Patient started on scheduled IV Lasix BID. - Continue spironolactone. - Continue Farxiga. - Continue daily weights with strict I&O's. - ECHO 08/13 showed EF 20 %. - Patient apparently previously declined ICD placement. (3) Heart failure with reduced ejection fraction: Code(s): I50.20 - Unspecified systolic (congestive) heart failure Status: Acute Assessment and Plan: - Mgt as # 1 (4) Atrial fibrillation: Code(s): I48.91 - Unspecified atrial fibrillation Status: Acute Assessment and Plan: - V-Pace rhythm on EKG. - Rate well controlled. - Continue Apixaban. - Patient not on rate control medication. (5) Chronic anticoagulation: Code(s): Z79.01 - USP (current) use of anticoagulants Status: Acute Assessment and Plan: - Apixaban continued. (6) Left subclavian artery occlusion: Code(s): I70.8 - Atherosclerosis of other arteries Status: Acute Assessment and Plan: - Continue aspirin and apixaban. - Pt allergic to statins. (7) Peripheral vascular disease: Code(s): I73.9 - Peripheral vascular disease, unspecified Status: Acute Assessment and Plan: - Continue aspirin. (8) Diarrhea: Code(s): R19.7 - Diarrhea, unspecified Status: Acute Assessment and Plan: - Denies any episodes currently. - C-diff test negative. (9) Pleural effusion: Code(s): J90 - Pleural effusion, not elsewhere classified Status: Acute Assessment and Plan: - CT chest showing moderate left and small right pleural effusion. - Patient scheduled for pleural effusion. - Continue IV Lasix diuresis. Plan The patient presented to the emergency department for evaluation of shortness of breath and edema. Pt with CHF Exacerbation and admitted for IV diuresis. Possible thoracentesis on the left din AM and Apixaban held. Follow daily weights and I/O. Left subclavian artery occlusion is a known finding, documented on the a discharge summary she in July 2022, for which she can be followed up by vascular surgeon as she is not having any acute issues at this time. Time Spent With Patient Time with patient: 15 - 25 minutes Subjective Date/time seen: 04/05/24 17:10 Patient calm on bedrest and looks to be in no acute distress. Interval history: Patient admitted for worsening SOB and reji. LE swelling. Patient noted to be in acute on chronic CHF exacerbation and has been admitted for stabilization. Review of Systems Review of Systems: 12 systems were reviewed and are negativ e except for as per HPI. All systems reviewed & are unremarkable except as noted in HPI and below Exam Narrative: General: Well-appearing, and in no acute distress. HEENT: PERRL, EOMI, sclera anicteric, moist mucosa. Neck: Supple. No JVD. Respiratory: Respirations are nonlabored, lungs clear bilaterally. Cardiovascular: Regular rate and rhythm with S1-S2. Pacemaker in the left subclavicular space. Gastrointestinal: Abdomen soft, nontender, and nondistended with positive bowel sounds. Skin: Warm and dry. No rash or lesions on limited exam. Extremities: No cyanosis or clubbing. 1+ edema reji. LE. Neurological: Alert. Cranial nerves II-XII grossly intact. No gross focal neuro deficits. Psychiatric: Pleasant and cooperative. Objective Data Vital Signs Vital Signs: Vital Signs - 24 hr 04/04/24 18:00 04/04/24 19:01 04/04/24 19:19 Temperature Pulse Rate 85 86 77 Respiratory Rate 24 H 20 Blood Pressure 134/78 129/76 Pulse Oximetry 96 95 Oxygen Delivery 04/04/24 19:19 04/04/24 19:20 04/04/24 19:50 Temperature 97.6 F Pulse Rate 76 Respiratory Rate 21 H Blood Pressure 129/76 Pulse Oximetry 98 98 98 Oxygen Delivery Room Air Room Air 04/04/24 21:04 04/04/24 23:29 04/05/24 00:56 Temperature 97.5 F L 97.6 F 97.7 F Pulse Rate 77 88 84 Respiratory Rate 21 H 16 23 H Blood Pressure 122/65 124/97 H 118/71 Pulse Oximetry 98 96 94 Oxygen Delivery 04/05/24 02:46 04/05/24 04:12 04/05/24 05:12 Temperature 97.9 F 97.7 F Pulse Rate 82 89 85 Respiratory Rate 20 17 20 Blood Pressure 126/67 121/68 138/76 Pulse Oximetry 96 95 96 Oxygen Delivery 04/05/24 07:01 04/05/24 07:45 04/05/24 09:00 Temperature 97.6 F 97.5 F L 97.6 F Pulse Rate 80 78 91 Respiratory Rate 18 16 19 Blood Pressure 128/68 124/72 119/78 Pulse Oximetry 98 96 97 Oxygen Delivery 04/05/24 09:01 04/05/24 09:46 04/05/24 10:56 Temperature 97.9 F 97.9 F Pulse Rate 90 91 78 Respiratory Rate 17 20 20 Blood Pressure 122/78 133/69 Pulse Oximetry 96 100 99 Oxygen Delivery 04/05/24 11:30 04/05/24 12:01 04/05/24 12:02 Temperature 97.9 F 97.8 F 97.7 F Pulse Rate 80 76 80 Respiratory Rate 20 19 20 Blood Pressure 116/72 125/81 126/72 Pulse Oximetry 98 100 98 Oxygen Delivery 04/05/24 13:14 04/05/24 14:01 04/05/24 15:01 Temperature 97.8 F 97.6 F 97.7 F Pulse Rate 86 90 97 Respiratory Rate 20 20 20 Blood Pressure 124/74 118/75 114/63 Pulse Oximetry 98 97 97 Oxygen Delivery Intake/Output Intake/Output: Intake & Output 04/02/24 04/03/24 04/04/24 04/05/24 23:59 23:59 23:59 23:59 Intake Total 500 Output Total 1600 Balance -1100 Meds/Results Medications: Active Medications Generic Name Dose Route Start Last Admin Trade Name Freq PRN Reason Stop Dose Admin Acetaminophen 650 mg 04/04/24 15:34 Acetaminophen 325 Mg Tablet PO Q4H PRN Mild Pain (1-3) or Fever Furosemide 40 mg 04/05/24 09:00 04/05/24 17:03 Furosemide Inj 40 Mg/4 Ml Vial IV PUSH 40 mg BID NAVEED Administration Ondansetron HCl 4 mg 04/04/24 15:34 Ondansetron Inj 4 Mg/2 Ml Vial IV PUSH Q4H PRN Nausea Radiology Results: ITS Impressions Chest X-Ray 04/04/24 13:11 IMPRESSION: Cardiomegaly Aortic atherosclerosis Mild right and zvtv-tb-[id number] left pleural effusions with associated compressive atelectasis at the lung bases, left greater than right Osteopenia Little interval change since 03/25/2024 Labs Labs: Laboratory Results - last 24 hr 04/04/24 04/05/24 19:21 05:08 WBC 5.0 RBC 4.72 Hgb 14.8 Hct 45.3 MCV 96.0 MCH 31.4 MCHC 32.7 RDW 18.3 H Plt Count 217 MPV 10.6 H PT 16.7 H INR 1.3 Sodium 139 Potassium 3.3 L Chloride 100 Carbon Dioxide 33 H Anion Gap 6 BUN 12 Creatinine 0.61 L Estim Creat Clear Calc 53 Estimated GFR > 60 Glucose 97 Calcium 8.7 Magnesium 1.8 Total Bilirubin 1.2 AST 22 ALT 9 Alkaline Phosphatase 41 Total Protein 6.0 L Albumin 3.5 TSH (Reflex) 1.300 C. difficile (PCR) Negative Quality VTE Prophylaxis VTE prophylaxis: mechanical ordered Hospitalist MIPS Advance Care Plan I have confirmed that the patient's Advanced Care Plan is present, code status is documented, or surrogate decision maker is listed in patient medical record.: Yes Medication Reconciliation I have utilized all available resources to obtain, update and review the patients current medications (includes all prescriptions, OTC, herbals, cannabis, and nutritional supplements).: Yes
[2024-04-05] MEDS: FLUTICASONE PROPIONATE 0.05% NA SPR 16 GM BTL (*BKC) 1 SPRAY NASAL (18:11)
[2024-04-06] VITALS (9 sets, daily range): BP systolic 101–108; BP diastolic 54–57; PULSE 75–84; RESP 16–18; TEMP 36.4–36.8; O2SAT 94–96
--- NOTE | 2024-04-06 07:12 | P.CDI_ITS ---
CDI Query Clarification Request CHF exacerbation has been documented. Please specify type of heart failure if known. Clinical Indicators: BNP 6230, ECHO 08/13 showed EF 20 %. Treatment: Patient started on scheduled IV Lasix BID, Continue spironolactone, Continue Farxiga, Continue daily weights with strict I&O's * Systolic * Diastolic * Combined Systolic and Diastolic * Unknown <Jennie Gerber RN - Last Filed: 04/06/24 07:18> CHF exacerbation has been documented. Please specify type of heart failure if known. Clinical Indicators: BNP 6230, ECHO 08/13 showed EF 20 %. Treatment: Patient started on scheduled IV Lasix BID, Continue spironolactone, Continue Farxiga, Continue daily weights with strict I&O's -[id number]- <Tomas Thompson NP - Last Filed: 04/06/24 07:57>
[2024-04-06 07:16] LABS: Anion Gap 7 mmol/L (4-12); Blood Urea Nitrogen 11 mg/dL (7-17); Calcium 8.7 mg/dL (8.4-10.2); Carbon Dioxide 27 mmol/L (22-30); Chloride 103 mmol/L (98-107); Estimated CRCL calculation 57 ml/min; Estimated Glomerular Filt Rate > 60; Glucose 92 mg/dL (65-110); Potassium 3.5 mmol/L (3.4-5.0); Sodium 137 mmol/L (137-145)
[2024-04-06] MEDS: EMPAGLIFLOZIN 10 MG TABLET PO (08:23)
[2024-04-06] MEDS: FLUTICASONE PROPIONATE 0.05% NA SPR 16 GM BTL (*BKC) 1 SPRAY NASAL ×2 (08:24→17:38)
[2024-04-06] MEDS: SPIRONOLACTONE 25 MG TABLET PO (08:24)
[2024-04-06] MEDS: FUROSEMIDE INJ 40 MG/4 ML VIAL IV PUSH ×2 (08:24→17:39)
[2024-04-06] MEDS: SERTRALINE HCL 25 MG TABLET PO (08:24)
[2024-04-06] MEDS: ASPIRIN 81 MG ENTERIC TABLET PO (08:24)
--- NOTE | 2024-04-06 11:34 | PM.IMPN ---
Progress Note: A&P Assessment and Plan (1) Acute hypoxic respiratory failure: Code(s): J96.01 - Acute respiratory failure with hypoxia Status: Acute Assessment and Plan: - Likely related to below. - Currently on RA with sats > 95 %. - Further mgt as # 2. (2) CHF exacerbation: Code(s): I50.9 - Heart failure, unspecified Status: Acute Assessment and Plan: CXR: IMPRESSION: Cardiomegaly Aortic atherosclerosis Mild right and gjni-qz-jtlsmgrn left pleural effusions with associated compressive atelectasis at the lung bases, left greater than right Osteopenia. - BNP 6230. - Patient started on scheduled IV Lasix BID. - Continue spironolactone. - Continue Farxiga. - Continue daily weights with strict I&O's. - ECHO 08/13 showed EF 20 %. - Patient previously declined ICD placement. (3) Heart failure with reduced ejection fraction: Code(s): I50.20 - Unspecified systolic (congestive) heart failure Status: Acute Assessment and Plan: - Mgt as # 1 (4) Pleural effusion: Code(s): J90 - Pleural effusion, not elsewhere classified Status: Acute Assessment and Plan: - CT chest showing moderate left and small right pleural effusion. - Patient scheduled for thoracentesis possibly tomorrow. - Hold Apixaban for now due to planned thoracentesis. - Continue IV Lasix diuresis. (5) Atrial fibrillation: Code(s): I48.91 - Unspecified atrial fibrillation Status: Acute Assessment and Plan: - V-Pace rhythm on EKG. - Rate well controlled. - Apixaban held with scheduled thoracentesis. - Patient not on rate control medication at home. (6) Chronic anticoagulation: Code(s): Z79.01 - retirement (current) use of anticoagulants Status: Acute Assessment and Plan: - Apixaban continued. (7) Left subclavian artery occlusion: Code(s): I70.8 - Atherosclerosis of other arteries Status: Acute Assessment and Plan: - Currently asymptomatic. - Continue aspirin and apixaban. - Pt allergic to statins. - Outpatient f/u with vascular surgeon. (8) Peripheral vascular disease: Code(s): I73.9 - Peripheral vascular disease, unspecified Status: Acute Assessment and Plan: - Continue aspirin. (9) Diarrhea: Code(s): R19.7 - Diarrhea, unspecified Status: Acute Assessment and Plan: - Denies any episodes today. - C-diff test negative. - Supportive care. Plan The patient presented to the emergency department for evaluation of shortness of breath and edema. Pt with CHF Exacerbation and admitted for IV diuresis. Possible thoracentesis tomorrow per IR and Apixaban held. Follow daily weights and I/O. Left subclavian artery occlusion is a known finding, documented on the discharge summary in July 2022, for which she can be followed up by vascular surgeon outpatient as she is asymptomatic now. Time Spent With Patient Time with patient: 15 - 25 minutes Subjective Date/time seen: 04/06/24 10:34 Patient states she's feeling better and her breathing is getting better. Interval history: Patient calm on bedrest and looks to be in no acute distress. Review of Systems Review of Systems: All systems reviewed & are unremarkable except as noted in HPI and below Exam Narrative: General: Well-appearing, and in no acute distress. HEENT: PERRL, EOMI, sclera anicteric, moist mucosa. Neck: Supple. No JVD. Respiratory: Respirations are nonlabored, lungs clear bilaterally. Cardiovascular: Regular rate and rhythm with S1-S2. Pacemaker in the left subclavicular space. Gastrointestinal: Abdomen soft, nontender, and nondistended with positive bowel sounds. Skin: Warm and dry. No rash or lesions on limited exam. Extremities: No cyanosis or clubbing. 1+ edema reji. LE. Neurological: Alert. Cranial nerves II-XII grossly intact. No gross focal neuro deficits. Psychiatric: Pleasant and cooperative. Objective Data Vital Signs Vital Signs: Vital Signs - 24 hr 04/05/24 12:01 04/05/24 12:02 04/05/24 13:14 Temperature 97.8 F 97.7 F 97.8 F Pulse Rate 76 80 86 Respiratory Rate 19 20 20 Blood Pressure 125/81 126/72 124/74 Pulse Oximetry 100 98 98 Oxygen Delivery 04/05/24 14:01 04/05/24 15:01 04/05/24 17:09 Temperature 97.6 F 97.7 F Pulse Rate 90 97 Respiratory Rate 20 20 Blood Pressure 118/75 114/63 Pulse Oximetry 97 97 97 Oxygen Delivery Room Air 04/05/24 19:57 04/05/24 20:00 04/05/24 20:00 Temperature 98.3 F Pulse Rate 77 80 Respiratory Rate 17 Blood Pressure 99/48 L Pulse Oximetry 95 Oxygen Delivery Room Air 04/06/24 00:00 04/06/24 04:00 04/06/24 05:25 Temperature 97.7 F Pulse Rate 75 75 84 Respiratory Rate 17 Blood Pressure 104/57 L Pulse Oximetry 95 Oxygen Delivery 04/06/24 08:24 04/06/24 08:24 Temperature Pulse Rate 84 Respiratory Rate Blood Pressure Pulse Oximetry Oxygen Delivery Room Air Intake/Output Intake/Output: Intake & Output 04/03/24 04/04/24 04/05/24 04/06/24 23:59 23:59 23:59 23:59 Intake Total 800 Output Total 2300 250 Balance -1500 -250 Meds/Results Medications: Active Medications Generic Name Dose Route Start Last Admin Trade Name Freq PRN Reason Stop Dose Admin Acetaminophen 650 mg 04/04/24 15:34 Acetaminophen 325 Mg Tablet PO Q4H PRN Mild Pain (1-3) or Fever Aspirin 81 mg 04/06/24 09:00 04/06/24 08:24 Aspirin 81 Mg Enteric Tablet PO 81 mg DAILY NAVEED Administration Empagliflozin 10 mg 04/06/24 09:00 04/06/24 08:23 Empagliflozin 10 Mg Tablet PO 10 mg DAILY NAVEED Administration Fluticasone Propionate 1 spray 04/05/24 17:40 04/06/24 08:24 Fluticasone Propionate 0.05% Na Spr 16 Gm Btl (*Bkc) NASAL 1 spray BID NAVEED Administration Furosemide 40 mg 04/05/24 09:00 04/06/24 08:24 Furosemide Inj 40 Mg/4 Ml Vial IV PUSH 40 mg BID NAVEED Administration Ondansetron HCl 4 mg 04/04/24 15:34 Ondansetron Inj 4 Mg/2 Ml Vial IV PUSH Q4H PRN Nausea Sertraline HCl 25 mg 04/06/24 09:00 04/06/24 08:24 Sertraline Hcl 25 Mg Tablet PO 25 mg DAILY NAVEED Administration Spironolactone 25 mg 04/06/24 09:00 04/06/24 08:24 Spironolactone 25 Mg Tablet PO 25 mg DAILY NAVEED Administration Radiology Results: ITS Impressions Chest X-Ray 04/04/24 13:11 IMPRESSION: Cardiomegaly Aortic atherosclerosis Mild right and jyfd-my-yyyzhenm left pleural effusions with associated compressive atelectasis at the lung bases, left greater than right Osteopenia Little interval change since 03/25/2024 Labs Labs: Laboratory Results - last 24 hr 04/06/24 05:30 Sodium 137 Potassium 3.5 Chloride 103 Carbon Dioxide 27 Anion Gap 7 BUN 11 Creatinine 0.57 L Estim Creat Clear Calc 57 Estimated GFR > 60 Glucose 92 Calcium 8.7 Quality VTE Prophylaxis VTE prophylaxis: mechanical ordered Hospitalist [facility] Advance Care Plan I have confirmed that the patient's Advanced Care Plan is present, code status is documented, or surrogate decision maker is listed in patient medical record.: Yes Medication Reconciliation I have utilized all available resources to obtain, update and review the patients current medications (includes all prescriptions, OTC, herbals, cannabis, and nutritional supplements).: Yes
[2024-04-07] VITALS (9 sets, daily range): BP systolic 91–115; BP diastolic 47–62; PULSE 74–83; RESP 17–18; TEMP 36.4–37.1; O2SAT 92–100
[2024-04-07 05:44] LABS: Basophils Absolute Auto 0.1 K/mm3 (0.0-0.1); Basophils Percent Auto 1.1 % (0.2-1.2); Eosinophils Absolute Auto 0.1 K/mm3 (0-0.3); Eosinophils Percent Auto 2.5 % (0-4.4); Hematocrit 43.1 % (37.0-47.0); Immature Granulocyte Absolute 0.01 K/mm3 (0.00-0.031); Immature Granulocyte Percent A 0.2 % (0-0.5); Lymphocytes Percent Auto 32.3 % (18.3-44.2); Mean Corpuscular HGB Conc 32.5 g/dl (32-36); Mean Corpuscular Hemoglobin 31.1 pg (26-34); Mean Corpuscular Volume 95.8 fl (80-100); Mean Platelet Volume 10.6 fl (7.4-10.4); Monocytes Absolute Auto 0.6 K/mm3 (0.1-0.6); Monocytes Percent Auto 10.4 % (2.6-8.5); Neutrophils Absolute Auto 2.8 K/mm3 (1.3-6.7); Neutrophils Percent Auto 53.5 % (45.5-73.1); Platelet Count Result 215 k/mm3 (150-375); White Blood Count 5.3 K/mm3 (4.5-10.0)
[2024-04-07 05:57] LABS: INR 1.2; Prothrombin Time 15.6 Seconds (11.1-14.7)
[2024-04-07 06:04] LABS: Anion Gap 5 mmol/L (4-12); Blood Urea Nitrogen 11 mg/dL (7-17); Calcium 8.4 mg/dL (8.4-10.2); Carbon Dioxide 34 mmol/L (22-30); Chloride 100 mmol/L (98-107); Estimated CRCL calculation 51 ml/min; Estimated Glomerular Filt Rate > 60; Glucose 101 mg/dL (65-110); Potassium 2.8 mmol/L (3.4-5.0); Sodium 139 mmol/L (137-145)
[2024-04-07] MEDS: POTASSIUM CHLORIDE INJ 40 MEQ in SODIUM CHLORIDE 0.9% IV 500 ML 130 MEQ IVPB (06:29)
--- NOTE | 2024-04-07 08:28 | PM.IMPN ---
Progress Note: A&P Assessment and Plan (1) Acute hypoxic respiratory failure: Code(s): J96.01 - Acute respiratory failure with hypoxia Status: Acute Assessment and Plan: Likely related to below. - Currently on RA with sats > 95 %. (2) Heart failure with reduced ejection fraction: Code(s): I50.20 - Unspecified systolic (congestive) heart failure Status: Acute Assessment and Plan: - BNP 6230. - Patient started on scheduled IV Lasix BID. - Continue spironolactone. - Continue Farxiga. - Continue daily weights with strict I&O's. - ECHO 08/13 showed EF 20 %. - Patient previously declined ICD placement. Cardiology has been consulted - waiting for recommendations/input (3) Pleural effusion: Code(s): J90 - Pleural effusion, not elsewhere classified Status: Acute Assessment and Plan: Mild right and tyds-uy-oohnlfeo left pleural effusions with associated compressive atelectasis at the lung bases, left greater than right - BNP 6230. - Patient started on scheduled IV Lasix BID. - Continue spironolactone. - Continue Farxiga. - Continue daily weights with strict I&O's. (4) Atrial fibrillation: Code(s): I48.91 - Unspecified atrial fibrillation Status: Acute Assessment and Plan: V-Pace rhythm on EKG. - Rate well controlled. - Apixaban held with scheduled thoracentesis. - Patient not on rate control medication at home. (5) Chronic anticoagulation: Code(s): Z79.01 - USP (current) use of anticoagulants Status: Acute (6) Left subclavian artery occlusion: Code(s): I70.8 - Atherosclerosis of other arteries Status: Acute Assessment and Plan: Left subclavian artery occlusion is unknown finding, documented on the a discharge summaryin July 2022, for which she can be followed up by vascular surgeon as she is not having any acute issues at this time -discussed statin therapy- cannot do statins due to allergies- will want to talk to pcp for further therapy decisions (7) Peripheral vascular disease: Code(s): I73.9 - Peripheral vascular disease, unspecified Status: Acute (8) Diarrhea: Code(s): R19.7 - Diarrhea, unspecified Status: Acute (9) Hypokalemia: Code(s): E87.6 - Hypokalemia Status: Acute Assessment and Plan: 2.8 today, 04/07- IV replacement ordered will recheck and monitor Plan The patient presented to the emergency department for evaluation of shortness of breath and edema as detailed in HPI. Labs, imaging, EKG, and all reports were personally reviewed. Furosemide was increased several weeks ago without much benefit and she is being admitted for IV diuresis. She may end up needing a thoracentesis on the left depending on how she responds. Hold apixaban in anticipation. Potassium will be replaced and monitored. Follow daily weights and I/O. Send stool for C diff as she has had 3 loose stools this evening- NEGATIVE Time Spent With Patient Time with patient: 25 - 35 minutes Subjective Date/time seen: 04/07/24 08:28 Interval history: Pt is seen and examined. VSS reviewed. K low- 2.8- IV replacement ordered. CT chest showing moderate left and small right pleural effusion. Patient scheduled for thoracentesis possibly today. Holding Apixaban for now, Continue IV Lasix diuresis. Review of Systems Review of Systems: All systems reviewed & are unremarkable except as noted in HPI and below Exam Narrative: General: Well-appearing, and in no acute distress. HEENT: PERRL, EOMI, sclera anicteric, moist mucosa. Neck: Supple. No JVD. Respiratory: Respirations are nonlabored, lungs clear bilaterally. Cardiovascular: Regular rate and rhythm with S1-S2. Pacemaker in the left subclavicular space. Gastrointestinal: Abdomen soft, nontender, and nondistended with positive bowel sounds. Skin: Warm and dry. No rash or lesions on limited exam. Extremities: No cyanosis or clubbing. 1+ edema reji. LE. Neurological: Alert. Cranial nerves II-XII grossly intact. No gross focal neuro deficits. Psychiatric: Pleasant and cooperative. Objective Data Vital Signs Vital Signs: Vital Signs - 24 hr 04/06/24 12:00 04/06/24 14:00 04/06/24 16:00 Temperature 97.6 F Pulse Rate 75 78 77 Respiratory Rate 16 Blood Pressure 101/54 L Pulse Oximetry 94 Oxygen Delivery 04/06/24 20:00 04/06/24 20:00 04/06/24 22:00 Temperature 98.2 F Pulse Rate 77 77 Respiratory Rate 18 Blood Pressure 108/54 L Pulse Oximetry 96 Oxygen Delivery Room Air 04/07/24 00:00 04/07/24 04:00 04/07/24 06:00 Temperature 97.5 F L Pulse Rate 79 81 74 Respiratory Rate 18 Blood Pressure 115/61 Pulse Oximetry 97 Oxygen Delivery Intake/Output Intake/Output: Intake & Output 04/04/24 04/05/24 04/06/24 04/07/24 23:59 23:59 23:59 23:59 Intake Total 800 480 Output Total 2300 2150 200 Balance -1500 -1670 -200 Meds/Results Medications: Active Medications Generic Name Dose Route Start Last Admin Trade Name Freq PRN Reason Stop Dose Admin Acetaminophen 650 mg 04/04/24 15:34 Acetaminophen 325 Mg Tablet PO Q4H PRN Mild Pain (1-3) or Fever Aspirin 81 mg 04/06/24 09:00 04/06/24 08:24 Aspirin 81 Mg Enteric Tablet PO 81 mg DAILY NAVEED Administration Empagliflozin 10 mg 04/06/24 09:00 04/06/24 08:23 Empagliflozin 10 Mg Tablet PO 10 mg DAILY NAVEED Administration Fluticasone Propionate 1 spray 04/05/24 17:40 04/06/24 17:38 Fluticasone Propionate 0.05% Na Spr 16 Gm Btl (*Bkc) NASAL 1 spray BID NAVEED Administration Furosemide 40 mg 04/05/24 09:00 04/06/24 17:39 Furosemide Inj 40 Mg/4 Ml Vial IV PUSH 40 mg BID NAVEED Administration Potassium Chloride 40 meq/ 520 mls @ 130 mls/hr 04/07/24 06:11 04/07/24 06:29 Sodium Chloride IVPB 04/07/24 10:10 130 mls/hr ONCE ONE Administration Ondansetron HCl 4 mg 04/04/24 15:34 Ondansetron Inj 4 Mg/2 Ml Vial IV PUSH Q4H PRN Nausea Sertraline HCl 25 mg 04/06/24 09:00 04/06/24 08:24 Sertraline Hcl 25 Mg Tablet PO 25 mg DAILY NAVEED Administration Spironolactone 25 mg 04/06/24 09:00 04/06/24 08:24 Spironolactone 25 Mg Tablet PO 25 mg DAILY NAVEED Administration Radiology Results: ITS Impressions Chest X-Ray 04/04/24 13:11 IMPRESSION: Cardiomegaly Aortic atherosclerosis Mild right and zccf-gr-dbhuhyai left pleural effusions with associated compressive atelectasis at the lung bases, left greater than right Osteopenia Little interval change since 03/25/2024 Labs Labs: Laboratory Results - last 24 hr 04/07/24 05:09 WBC 5.3 RBC 4.50 Hgb 14.0 Hct 43.1 MCV 95.8 MCH 31.1 MCHC 32.5 RDW 18.0 H Plt Count 215 MPV 10.6 H Immature Gran % (Auto) 0.2 Neut % (Auto) 53.5 Lymph % (Auto) 32.3 [place] % (Auto) 10.4 H Eos % (Auto) 2.5 Baso % (Auto) 1.1 Lymph # (Auto) 1.70 [place] # (Auto) 0.6 Eos # (Auto) 0.1 Baso # (Auto) 0.1 Abs Immat Gran (auto) 0.01 Absolute Neuts (auto) 2.8 Absolute Nucleated RBC 0.000 Nucleated RBC % 0.0 PT 15.6 H INR 1.2 Sodium 139 Potassium 2.8 L* Chloride 100 Carbon Dioxide 34 H Anion Gap 5 BUN 11 Creatinine 0.65 L Estim Creat Clear Calc 51 Estimated GFR > 60 Glucose 101 Calcium 8.4 Quality VTE Prophylaxis VTE prophylaxis: mechanical ordered
[2024-04-07] MEDS: ONDANSETRON INJ 4 MG/2 ML VIAL IV PUSH (12:49)
[2024-04-07] MEDS: FUROSEMIDE INJ 40 MG/4 ML VIAL IV PUSH ×2 (12:53→17:08)
[2024-04-07] MEDS: EMPAGLIFLOZIN 10 MG TABLET PO (13:58)
[2024-04-07] MEDS: FLUTICASONE PROPIONATE 0.05% NA SPR 16 GM BTL (*BKC) 1 SPRAY NASAL ×2 (13:58→17:08)
[2024-04-07] MEDS: SERTRALINE HCL 25 MG TABLET PO (13:58)
[2024-04-07] MEDS: SPIRONOLACTONE 25 MG TABLET PO (13:58)
[2024-04-07] MEDS: ACETAMINOPHEN ELIXIR 325 MG/10.15 ML UDC 650 MG PO (20:35)
[2024-04-08] VITALS (10 sets, daily range): BP systolic 89–110; BP diastolic 48–63; PULSE 72–88; RESP 18–20; TEMP 36.3–37.1; O2SAT 90–98
[2024-04-08 05:55] LABS: Hemoglobin 13.6 g/dL (12.0-15.0); Mean Corpuscular HGB Conc 31.6 g/dl (32-36); Mean Corpuscular Hemoglobin 30.8 pg (26-34); Mean Corpuscular Volume 97.3 fl (80-100); Mean Platelet Volume 10.9 fl (7.4-10.4); Platelet Count Result 200 k/mm3 (150-375); Red Blood Count 4.42 M/mm3 (4.2-5.4); Red Cell Distribution Width 18.4 % (11.5-14.5)
[2024-04-08 06:04] LABS: Anion Gap 3 mmol/L (4-12); Blood Urea Nitrogen 13 mg/dL (7-17); Calcium 8.3 mg/dL (8.4-10.2); Carbon Dioxide 35 mmol/L (22-30); Chloride 99 mmol/L (98-107); Estimated CRCL calculation 40 ml/min; Estimated Glomerular Filt Rate > 60; Glucose 98 mg/dL (65-110); Potassium 3.6 mmol/L (3.4-5.0); Sodium 137 mmol/L (137-145)
[2024-04-08] MEDS: EMPAGLIFLOZIN 10 MG TABLET PO (08:24)
[2024-04-08] MEDS: SPIRONOLACTONE 25 MG TABLET PO (08:24)
[2024-04-08] MEDS: ASPIRIN 81 MG ENTERIC TABLET PO (08:24)
[2024-04-08] MEDS: FLUTICASONE PROPIONATE 0.05% NA SPR 16 GM BTL (*BKC) 1 SPRAY NASAL ×2 (08:24→17:27)
[2024-04-08] MEDS: SERTRALINE HCL 25 MG TABLET PO (08:24)
--- NOTE | 2024-04-08 08:30 | P.PNIM_ITS ---
Progress Note: A&P Assessment and Plan (1) Acute hypoxic respiratory failure: Code(s): J96.01 - Acute respiratory failure with hypoxia Status: Acute Assessment and Plan: Likely related to below. - Currently on RA with sats > 95 %. (2) Heart failure with reduced ejection fraction: Code(s): I50.20 - Unspecified systolic (congestive) heart failure Status: Acute Assessment and Plan: - BNP 6230. - Patient started on scheduled IV Lasix BID. - Continue spironolactone. - Continue Farxiga. - Continue daily weights with strict I&O's. - ECHO 08/13 showed EF 20 %. - Patient previously declined ICD placement. - i/o reviewed, vs reviewed -stable (3) Pleural effusion: Code(s): J90 - Pleural effusion, not elsewhere classified Status: Acute Assessment and Plan: Mild right and [id number] left pleural effusions with associated compressive atelectasis at the lung bases, left greater than right - BNP 6230. - Patient started on scheduled IV Lasix BID. - Continue spironolactone. - Continue Farxiga. - Continue daily weights with strict I&O's. repeat chest xray 04/08- repeated chest xray: Worsened airspace opacities in the lower lung zones, left worse than right, consistent with atelectasis versus pneumonia. will start pneumonia coverage. (4) Atrial fibrillation: Code(s): I48.91 - Unspecified atrial fibrillation Status: Acute Assessment and Plan: V-Pace rhythm on EKG. - Rate well controlled. - Apixaban resumed (5) Chronic anticoagulation: Code(s): Z79.01 - nursing home (current) use of anticoagulants Status: Acute Assessment and Plan: resume eliquis (6) Left subclavian artery occlusion: Code(s): I70.8 - Atherosclerosis of other arteries Status: Acute Assessment and Plan: Left subclavian artery occlusion is unknown finding, documented on the a discharge summary in July 2022, for which she can be followed up by vascular surgeon as she is not having any acute issues at this time -discussed statin therapy- cannot do statins due to allergies- will want to talk to pcp for further therapy decisions (7) Peripheral vascular disease: Code(s): I73.9 - Peripheral vascular disease, unspecified Status: Acute (8) Diarrhea: Code(s): R19.7 - Diarrhea, unspecified Status: Acute (9) Hypokalemia: Code(s): E87.6 - Hypokalemia Status: Acute Assessment and Plan: 2.8 today, 04/07- IV replacement ordered will recheck and monitor 3.6 on 04/08- daily replacement for few days- monitor closely as pt is on spironolactone Plan The patient presented to the emergency department for evaluation of shortness of breath and edema as detailed in HPI. Labs, imaging, EKG, and all reports were personally reviewed. Furosemide was increased several weeks ago without much benefit and she is being admitted for IV diuresis. She may end up needing a thoracentesis on the left depending on how she responds. Hold apixaban in anticipation. Potassium will be replaced and monitored. Follow daily weights and I/O. Send stool for C diff as she has had 3 loose stools this evening- NEGATIVE Time Spent With Patient Time with patient: 25 - 35 minutes Subjective Date/time seen: 04/08/24 08:30 Interval history: Pt is seen and examined. VSS reviewed. K low- 2.8- IV replacement ordered. CT chest showing moderate left and small right pleural effusion. Had thoracentesis yesterday. Continue IV Lasix diuresis. K improved- continue replacement Review of Systems Review of Systems: All systems reviewed & are unremarkable except as noted in HPI and below Exam Narrative: General: Well-appearing, and in no acute distress. HEENT: PERRL, EOMI, sclera anicteric, moist mucosa. Neck: Supple. No JVD. Respiratory: Respirations are nonlabored, lungs clear bilaterally. Cardiovascular: Regular rate and rhythm with S1-S2. Pacemaker in the left subclavicular space. Gastrointestinal: Abdomen soft, nontender, and nondistended with positive bowel sounds. Skin: Warm and dry. No rash or lesions on limited exam. Extremities: No cyanosis or clubbing. 1+ edema reji. LE. Neurological: Alert. Cranial nerves II-XII grossly intact. No gross focal neuro deficits. Psychiatric: Pleasant and cooperative. Objective Data Vital Signs Vital Signs: Vital Signs - 24 hr 04/07/24 08:45 04/07/24 12:00 04/07/24 14:00 Temperature 97.7 F Pulse Rate 82 76 Respiratory Rate 17 Blood Pressure 101/62 Pulse Oximetry 100 Oxygen Delivery Room Air 04/07/24 16:00 04/07/24 20:00 04/07/24 20:00 Temperature Pulse Rate 74 74 Respiratory Rate Blood Pressure Pulse Oximetry Oxygen Delivery Room Air 04/07/24 22:00 04/08/24 00:00 04/08/24 04:00 Temperature 98.8 F Pulse Rate 80 76 76 Respiratory Rate 18 Blood Pressure 91/47 L Pulse Oximetry 92 Oxygen Delivery 04/08/24 06:00 04/08/24 08:23 Temperature 98.7 F Pulse Rate 72 88 Respiratory Rate 18 Blood Pressure 99/48 L 96/50 L Pulse Oximetry 90 Oxygen Delivery Intake/Output Intake/Output: Intake & Output 04/05/24 04/06/24 04/07/24 04/08/24 23:59 23:59 23:59 23:59 Intake Total 800 480 480 Output Total 2300 2150 1800 600 Balance -1500 -1670 -1320 -600 Meds/Results Medications: Active Medications Generic Name Dose Route Start Last Admin Trade Name Freq PRN Reason Stop Dose Admin Acetaminophen 650 mg 04/07/24 20:14 04/07/24 20:35 Acetaminophen Elixir 325 Mg/10.15 Ml Udc PO 650 mg Q4H PRN Administration Mild Pain (1-3) or Fever Aspirin 81 mg 04/06/24 09:00 04/08/24 08:24 Aspirin 81 Mg Enteric Tablet PO 81 mg DAILY NAVEED Administration Empagliflozin 10 mg 04/06/24 09:00 04/08/24 08:24 Empagliflozin 10 Mg Tablet PO 10 mg DAILY NAVEED Administration Fluticasone Propionate 1 spray 04/05/24 17:40 04/08/24 08:24 Fluticasone Propionate 0.05% Na Spr 16 Gm Btl (*Bkc) NASAL 1 spray BID NAVEED Administration Furosemide 40 mg 04/05/24 09:00 04/07/24 17:08 Furosemide Inj 40 Mg/4 Ml Vial IV PUSH 40 mg BID NAVEED Administration Ondansetron HCl 4 mg 04/04/24 15:34 04/07/24 12:49 Ondansetron Inj 4 Mg/2 Ml Vial IV PUSH 4 mg Q4H PRN Administration Nausea Sertraline HCl 25 mg 04/06/24 09:00 04/08/24 08:24 Sertraline Hcl 25 Mg Tablet PO 25 mg DAILY NAVEED Administration Spironolactone 25 mg 04/06/24 09:00 04/08/24 08:24 Spironolactone 25 Mg Tablet PO 25 mg DAILY NAVEED Administration Radiology Results: ITS Impressions Chest X-Ray 04/07/24 11:02 IMPRESSION: 1. Small pleural effusions with improvement on the left status post thoracentesis. 2. Airspace opacities in left lower lung zone with interval improvement, likely atelectasis. 3. Cardiomegaly. Thoracentesis Ultrasound 04/07/24 11:03 IMPRESSION: 1. Successful ultrasound-guided thoracentesis yielding 900 mL of xochitl-colored fluid. Labs Labs: Laboratory Results - last 24 hr 04/07/24 04/08/24 14:22 05:02 WBC 6.0 RBC 4.42 Hgb 13.6 Hct 43.0 MCV 97.3 MCH 30.8 MCHC 31.6 L RDW 18.4 H Plt Count 200 MPV 10.9 H Sodium 137 Potassium 4.0 3.6 Chloride 99 Carbon Dioxide 35 H Anion Gap 3 L BUN 13 Creatinine 0.84 Estim Creat Clear Calc 40 Estimated GFR > 60 Glucose 98 Calcium 8.3 L Quality VTE Prophylaxis VTE prophylaxis: mechanical ordered
[2024-04-08] MEDS: POTASSIUM CHLORIDE 20 MEQ ER TABLET 40 MEQ PO (10:16)
[2024-04-08] MEDS: APIXABAN 5 MG TABLET PO ×2 (10:16→21:09)
[2024-04-09] VITALS: PULSE 80
[2024-04-09 04:00] VITALS: PULSE 80
[2024-04-09 04:06] VITALS: BP 100/63; PULSE 76; RESP 18; TEMP 37.2; O2SAT 93
[2024-04-09 05:52] LABS: Hemoglobin 13.5 g/dL (12.0-15.0); Mean Corpuscular HGB Conc 32.1 g/dl (32-36); Mean Corpuscular Hemoglobin 31.2 pg (26-34); Mean Platelet Volume 10.9 fl (7.4-10.4); Platelet Count Result 196 k/mm3 (150-375); Red Blood Count 4.33 M/mm3 (4.2-5.4); Red Cell Distribution Width 18.3 % (11.5-14.5); White Blood Count 7.7 K/mm3 (4.5-10.0)
[2024-04-09 06:06] LABS: Anion Gap 5 mmol/L (4-12); Blood Urea Nitrogen 16 mg/dL (7-17); Carbon Dioxide 32 mmol/L (22-30); Chloride 99 mmol/L (98-107); Estimated CRCL calculation 39 ml/min; Estimated Glomerular Filt Rate > 60; Glucose 112 mg/dL (65-110); Potassium 4.6 mmol/L (3.4-5.0); Sodium 136 mmol/L (137-145)
[2024-04-09 08:00] VITALS: PULSE 80
[2024-04-09] MEDS: SERTRALINE HCL 25 MG TABLET PO (08:57)
[2024-04-09] MEDS: FLUTICASONE PROPIONATE 0.05% NA SPR 16 GM BTL (*BKC) 1 SPRAY NASAL (08:57)
[2024-04-09] MEDS: ASPIRIN 81 MG ENTERIC TABLET PO (08:57)
[2024-04-09] MEDS: SPIRONOLACTONE 25 MG TABLET PO (08:57)
[2024-04-09] MEDS: APIXABAN 5 MG TABLET PO (08:57)
[2024-04-09] MEDS: FUROSEMIDE 40 MG TABLET PO (08:57)
[2024-04-09] MEDS: EMPAGLIFLOZIN 10 MG TABLET PO (08:57)
[2024-04-09 09:40] VITALS: O2SAT 98
--- NOTE | 2024-04-09 11:58 | P.DS_ITS ---
DS: Admitting Diagnosis Discharge Date 04/09 Admitting Diagnosis sob DS: Discharge Diagnosis Discharge Diagnosis (1) Acute hypoxic respiratory failure: Code(s): J96.01 - Acute respiratory failure with hypoxia Status: Acute (2) Heart failure with reduced ejection fraction: Code(s): I50.20 - Unspecified systolic (congestive) heart failure Status: Acute (3) Pleural effusion: Code(s): J90 - Pleural effusion, not elsewhere classified Status: Acute (4) Atrial fibrillation: Code(s): I48.91 - Unspecified atrial fibrillation Status: Acute (5) Chronic anticoagulation: Code(s): Z79.01 - residential (current) use of anticoagulants Status: Acute (6) Left subclavian artery occlusion: Code(s): I70.8 - Atherosclerosis of other arteries Status: Acute (7) Peripheral vascular disease: Code(s): I73.9 - Peripheral vascular disease, unspecified Status: Acute (8) Diarrhea: Code(s): R19.7 - Diarrhea, unspecified Status: Acute (9) Hypokalemia: Code(s): E87.6 - Hypokalemia Status: Acute DS: Summary Hospital Course Hospital Course: This is an 83-year-old female with history of coronary artery disease, atrial fibrillation on chronic anticoagulation, status post permanent pacemaker imp lantation, heart failure with reduced ejection fraction as low as 20% for which she has refused ICD, peripheral vascular disease, and stroke in July 2022 status post TNK and mechanical thrombectomy of a left M1 occlusion who presented to the emergency department via private vehicle for evaluation of shortness of breath. The patient provides the following history. She initially noticed shortness of breath with exertion over the summer when she was outside working in her yard. Towards the middle part of January she began to develop dyspnea on lesser and lesser exertion as well as lower extremity edema and orthopnea. She saw her doctor in mid February who increased her furosemide dose and she has some noticeable improvement in the swelling however the shortness of breath and orthopnea remained. Last week she saw him again in follow-up and had labs and imaging done and today she was referred to the ED as her CT scan showed bilateral pleural effusions, worse on the left. She denies syncope, near syncope, fever, chills, sweats, chest and pleuritic pain, palpitations, paroxysmal nocturnal dyspnea, nausea, vomiting, and calf pain. Pt had thoracentesis on 04/07 - Successful ultrasound-guided thoracentesis yielding 900 mL of xochitl-colored fluid. NO specimen were collected for lab analysis. Pt tolerated procedure well. SOB greatly improved. 04/08- repeated chest xray: Worsened airspace opacities in the lower lung zones, left worse than right, consistent with atelectasis versus pneumonia. will start pneumonia coverage- PT refused to take antibiotics -states that no need to send any scripts. She wants to talk to her PCP and let him decide if she needs antibiotics and what kind. Family at the bedside and all in agreement that she would rather not take antibiotics and wait to discuss it with her PCP. Chest Xray findings discussed and options are provided- risks if not starting antibiotics now- pt and family aware and chose to wait to talk to PCP. #Atherosclerosis of other arteries Left subclavian artery occlusion is unknown finding, documented on the a discharge summary in July 2022, for which she can be followed up by vascular bebeto [place] as she is not having any acute issues at this time -discussed statin therapy- cannot do statins due to allergies- will want to talk to pcp for further therapy decisions. # Hypokalemia 2.8 today, 04/07- IV replacement ordered will recheck and monitor 3.6 on 04/08- daily replacement for few days- monitor closely as pt is on spironolactone 4.6 on 04/09- k supplements stopped will need a recheck in 1 week or so when she is following up with her PCP. She had diarrhea- C Diff was checked- negative. Resolved. Status at Discharge Functional status at discharge: independent ambulation Overall status at discharge: patient is progressing back to baseline Time Spent with Patient Time attestation: Total time spent providing and/or coordinating discharge services: Time spent: Greater than 30 minutes Exam Narrative: General: Well-appearing, and in no acute distress. HEENT: PERRL, EOMI, sclera anicteric, moist mucosa. Neck: Supple. No JVD. Respiratory: Respirations are nonlabored, lungs clear bilaterally. Cardiovascular: Regular rate and rhythm with S1-S2. Pacemaker in the left subclavicular space. Gastrointestinal: Abdomen soft, nontender, and nondistended with positive bowel sounds. Skin: Warm and dry. No rash or lesions on limited exam. Extremities: No cyanosis or clubbing. 1+ edema reji. LE. Neurological: Alert. Cranial nerves II-XII grossly intact. No gross focal neuro deficits. Psychiatric: Pleasant and cooperative. DS: Data Data Completed and Pending Completed studies during hospitalization: 04/07 thoracentesis, chest xray, chest CT Labs on day of discharge: Labs from last 24 hours 04/09/24 05:45 WBC 7.7 RBC 4.33 Hgb 13.5 Hct 42.0 MCV 97.0 MCH 31.2 MCHC 32.1 RDW 18.3 H Plt Count 196 MPV 10.9 H Sodium 136 L Potassium 4.6 Chloride 99 Carbon Dioxide 32 H Anion Gap 5 BUN 16 Creatinine 0.80 Estim Creat Clear Calc 39 Estimated GFR > 60 Glucose 112 H Calcium 9.0 Discharge Plan Discharge Attending physician on discharge: Isabel Pritchett Consulting providers: Vernon Villalpando V. Discharging Clinician: Araceli Lombardi Patient Disposition: Home, Self-Care Activity: july shower Diet: as tolerated and heart healthy Discharge Instructions: YOu were admitted for shortness of breath. On 04/07 you had thoracentesis and 900 ml was drained from your lunch. It relieved your symptoms. On 04/08, chest xray was questionable for atelectasis vs pneumonia. Recommendations were to treat you for pneumonia but you chose to wait and discuss it with yur PCP. YOu potassium was low - we gave you replacement and today, 04/09, it stabilized to 4.6 (normal 3.5-5). Please have your PCP recheck your K level when you go see him. Also, as we discussed, one of your CT showed Left subclavian artery occlusion (July 2022). Please follow up with your PCP fir a possible referral to vascular surgeon for monitoring and treatment. If you start having chest pain, worsening shortness of breath and/or any new and concerning symptoms, please return to ED. Patient Instructions: Antibiotic Form Patient Language: [place] Stand Alone Forms: General Discharge Information Follow-up/Referrals: aJleel Mcgovern MD [Primary Care Provider] - 1 Week Discharge Medications: Continued Eliquis 5 mg tablet 5 mg PO Q12H dapagliflozin propanediol [Farxiga] 10 mg Tablet 10 mg PO DAILY fluticasone propionate [Flonase Allergy Relief] 50 mcg/actuation spray,suspension 1 spray intranasal BID Qty: 16 0RF Rx Instructions: administer into each nostril Zyrtec 10 mg capsule 10 mg PO DAILY PRN (Reason: allergy symptoms) Qty: 20 0RF sertraline 25 mg tablet 25 mg PO DAILY Qty: 90 1RF furosemide 20 mg tablet 40 mg PO QAM spironolactone 25 mg tablet 25 mg PO DAILY Qty: 90 1RF aspirin [Adult Low Dose Aspirin] 81 mg tablet,delayed release (DR/EC) 81 mg PO DAILY Qty: 90 1RF Date of admission: 04/05/24 16:21 Primary Care Provider: Jaleel Mcgovern Admitting Provider: Beth Perez Attending physician on admission: Beth Perez Condition: Stable Quality VTE Prophylaxis VTE prophylaxis: mechanical ordered Hospitalist MIPS Heart Failure (Exclusion) Patient has history of Heart Transplant or Left Ventricular Assistive Device?: No IF YES, STOP HERE Heart Failure (Qualifier) Patient has current or prior documentation of LVEF less than or equal to 40%, or mod/servere depressed LVSF?: No IF NO, STOP HERE
[2024-04-09 12:00] VITALS: PULSE 77
--- OUTSIDE RECORDS SUMMARY | 2024-04-11 06:33 | XMS_ITS | CONTINUITY OF CARE DOCUMENT ---
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 Radha Rodrigues Obesity active Cassi Louis RN Hyperlipidemia active Cassi Louis RN HTN active Cassi Louis RN CAD active Cassi Louis RN Atrial fibrillation, paroxysmal active Cassi Louis RN Status Post Medtronic (MRI S afe) REVEAL/LinQ active Reynaldo Flannery DO Sick sinus syndrome active Reynaldo Flannery DO manager terminal drug therapy (Amio darone)- [facility] follows active Reynaldo Flannery DO Fatigue active Lizbet Delgado NP AAA active Lizbet Delgado NP ENCOUNTERS Date Type Provider Location Encounter Diagnosis - In-person encounter Office Visit Camron Pedro MD [facility] AAA - In-person encounter Office Visit Reynaldo Flannery DO [facility] - In-person encounter Office Visit Reynaldo Flannery [facility] Fatigue - In-person encounter Office Visit Reynaldo Flannery [facility] Office - In-person encounter Office Visit Reynaldo Flannery [facility] Office - In-person encounter Office Visit Reynaldo Flannery [facility] Office - In-person encounter Office Visit Reynaldo Flannery DO [facility] manager terminal drug therapy (Amiodarone)- [facility] follows - In-person encounter Office Visit Reynaldo Flannery [facility] Office - In-person encounter Office Visit Reynaldo Flannery [facility] Office - In-person encounter Office Visit Reynaldo Flannery [facility] Status Post Medtronic (MRI Safe) REVEAL/LinQ - In-person encounter Office Visit Reynaldo Flannery [facility] Office - [facility] - [facility] VITAL SIGNS Date Observation Value Provider Body Mass Index (Ratio) 30.85 kg/m2 Phan Pedro MD blood pressure, cuff size large Ke rri Yoli blood pressure, diastolic 90 mm[Hg] Ke rri Yoli blood pressure, systolic 130 mm[Hg] Ker ri Yoli oxygen saturation, oximetry 99 % Shirin Gruenenfelder respiratory rate E&M 16 /min Shirin G ruenenfelder pulse rate 85 /min Shirin Gruenenfe lder weight E&M 166 [lb_av] Shirin Gruenenfe lder height E&M 61.5 [in_i] Shirin Gruenenfe lder Body Mass Index (Ratio) 27.36 kg/m2 Denn is Haakon DO blood pressure, cuff size regular Kr is Hieu blood pressure, diastolic 70 mm[Hg] Kr ty Hieu blood pressure, systolic 100 mm[Hg] [facility], oximetry 98 % Bria [facility] pulse rate 92 /min Bria Hieu respiratory rate E&M 18 /min Bria [facility] weight E&M 147.2 [lb_av] Bria [place] height E&M 61.5 [in_i] Bria Hieu Body Mass Index (Ratio) 30.11 kg/m2 Denn is Haakon DO blood pressure, cuff size regular Ke rri Gruenenfelder blood pressure, diastolic 80 mm[Hg] Ke rri Gruenenfelder blood pressure, systolic 132 mm[Hg] Ba ri Gruenenfelder oxygen saturation, oximetry 98 % Shirin Gruenenfelder respiratory rate E&M 16 /min Shirin G gómezenenfelder pulse rate 72 /min Shirin Gruenenfe lder temperature E&M 97.7 [degF] Shirin Grnnekane nfelder weight E&M 162 [lb_av] Shirin Gruenenfe lder height E&M 61.5 [in_i] Shirin Shipley lder Body Mass Index (Ratio) 31.37 kg/m2 Denn is Haakon DO pulse rate 67 /min Bria Hieu oxygen saturation, oximetry 95 % Bria [place] blood pressure, diastolic 80 mm[Hg] Kr isty [place] blood pressure, systolic 140 mm[Hg] Kri sty Hieu respiratory rate E&M 18 /min Bria [place] weight E&M 168.8 [lb_av] Bria Hieu height E&M 61.5 [in_i] Bria Hieu Body Mass Index (Ratio) 32.53 kg/m2 Carson ortega Lambros blood pressure, diastolic 80 mm[Hg] astity Denia blood pressure, systolic 116 mm[Hg] Suri stity Denia oxygen saturation, oximetry 96 % Chastity Denia pulse rate 86 /min Chastity Denia respiratory rate E&M 16 /min Chastit y Denia weight E&M 175 [lb_av] Chastity Denia height E&M 61.5 [in_i] Chastity Denia Body Mass Index (Ratio) 31.45 kg/m2 Denn is Haakon DO blood pressure, cuff size regular Kr isty Hieu blood pressure, diastolic 70 mm[Hg] Kr isty [facility] blood pressure, systolic 122 mm[Hg] Kri sty [facility] oxygen saturation, oximetry 98 % Bria [place] respiratory rate E&M 17 /min Bria [place] pulse rate 101 /min Bria [place] weight E&M 169.2 [lb_av] Bria Hieu height E&M 61.5 [in_i] Bria [place] Body Mass Index (Ratio) 30.85 kg/m2 Denn is Haakon DO blood pressure, diastolic 92 mm[Hg] Ananda Gordon-Octavio blood pressure, systolic 140 mm[Hg] Kizzy Gordon-Octavio oxygen saturation, oximetry 97 % Marilia Gordon-Octvaio pulse rate 67 /min Marilia Gordon- Octavio weight E&M 166 [lb_av] Marilia Gordon- Octavio height E&M 61.5 [in_i] Marilia Gordon- Octavio Body Mass Index (Ratio) 30.67 kg/m2 Carson Johnston blood pressure, diastolic 100 mm[Hg] Ananda Gordon-Octavio blood pressure, systolic 170 mm[Hg] Kizzy Gordon-Octavio oxygen saturation, oximetry 95 % Marilia Gordon-Octavio pulse rate 71 /min Marilia Gordon- Octavio weight E&M 165 [lb_av] Marilia Gordon- Octavio height E&M 61.5 [in_i] Marilia Gordon- Octavio Body Mass Index (Ratio) 30.30 kg/m2 Matt Pennington blood pressure, cuff size regular Carlos isty Hieu blood pressure, diastolic 70 mm[Hg] Carlos isty Hieu blood pressure, systolic 124 mm[Hg] Carlosi stlena [place] respiratory rate E&M 18 /min Bria [place] oxygen saturation, oximetry 96 % Bria [place] pulse rate 107 /min Bria [place] weight E&M 163 [lb_av] Bria [place] height E&M 61.5 [in_i] Bria [place] Body Mass Index (Ratio) 30.48 kg/m2 Denn is Haakon DO oxygen saturation, oximetry 98 % Quiqueity Denia blood pressure, diastolic 84 mm[Hg] astity Denia blood pressure, systolic 142 mm[Hg] Suri stity Denia pulse rate 60 /min Chastity Denia respiratory rate E&M 16 /min Chastit y Denia weight E&M 164 [lb_av] Suristity Denia height E&M 61.5 [in_i] Suristity Denia Body Mass Index (Ratio) 30.30 kg/m2 Chiquita Yu [employer] blood pressure, cuff size large Ke rri Elidanfelder blood pressure, diastolic 84 mm[Hg] Ke rri Suenenfelder blood pressure, systolic 120 mm[Hg] Ba emmett Kent oxygen saturation, oximetry 98 % Shirin Kent respiratory rate E&M 18 /min Shirin frias pulse rate 55 /min Shirin Quinten lder weight E&M 163 [lb_av] Shirin Rinkue lder height E&M 61.5 [in_i] Shirin Rinkue lder Body Mass Index (Ratio) 31.04 kg/m2 Gorge Plurad blood pressure, cuff size regular Kr isty [place] blood pressure, diastolic 80 mm[Hg] Kr isty Hieu blood pressure, systolic 130 mm[Hg] Kri sty [place] oxygen saturation, oximetry 97 % Bria [place] respiratory rate E&M 16 /min Bria Hieu pulse rate 76 /min Bria Hieu weight E&M 167 [lb_av] Bria [place] height E&M 61.5 [in_i] Bria Hieu Body Mass Index (Ratio) 31.04 kg/m2 Chiquita Yu [employer] Body Mass Index (Ratio) 30.67 kg/m2 Blayne is Haakon DO blood pressure, diastolic 80 mm[Hg] Thomas karen O'Raji blood pressure, systolic 136 mm[Hg] Leah cr ORaji oxygen saturation, oximetry 98 % Rachel O'Raji respiratory rate E&M 16 /min Rachel O'Raji pulse rate 79 /min Rachel O'Raji weight E&M 167 [lb_av] Rachel ORaji height E&M 61.5 [in_i] Rachel ORaji blood pressure, cuff size regular Carlos isty Hieu blood pressure, diastolic 70 mm[Hg] Kr isty [place] blood pressure, systolic 132 mm[Hg] Kri stlena Hieu oxygen saturation, oximetry 97 % Bria Hieu respiratory rate E&M 16 /min Bria Hieu pulse rate 71 /min Bria Hieu weight E&M 165 [lb_av] Bria Hieu height E&M 61.5 [in_i] Bria [place] Body Mass Index (Ratio) 30.41 kg/m2 Blayne is Haakon DO blood pressure, cuff size regular Te marti Adam blood pressure, diastolic 78 mm[Hg] Te marti Adam blood pressure, systolic 122 mm[Hg] Ten john Adam oxygen saturation, oximetry 98 % Kathy Adam respiratory rate E&M 18 /min Kathy Adam pulse rate 63 /min Kathy Adam blood pressure, resting No Tene cr Adam weight E&M 163.6 [lb_av] Kathy Linares y blood pressure, diastolic 104 mm[Hg] Thomas Louis RN blood pressure, systolic 160 mm[Hg] Leah Louis RN pulse rate 66 /min Cassi Louis RN oxygen saturation, oximetry 98 % Cassi Louis RN respiratory rate E&M 22 /min Cassi hendricks RN Body Mass Index (Ratio) 30.52 kg/m2 Cassi Louis RN weight E&M 164.2 [lb_av] Cassi Louis RN oxygen saturation, oximetry 98 % Estefani Vergara blood pressure, diastolic 86 mm[Hg] Artur franks Jai blood pressure, systolic 160 mm[Hg] Aayush Vergara pulse rate 65 /min Estefani Vergara respiratory rate E&M 16 /min Estefani mejia Body Mass Index (Ratio) 30.30 kg/m2 Gracie Vergara height E&M 61.5 [in_i] Estefani Vergara weight E&M 163 [lb_av] Estefani Vergara ALLERGIES Allergy Name Onset Date Reaction Criticality Status DILTIAZEM Low Criticality active PCN N/V, rash Low Criticality active MORPHINE rash rash Low Criticality active CODEINE N/V, rash Low Criticality active RESULTS Date Observation Value Provider Reference Range Interpretation Location B-type natriuretic peptide 75.3 pg/mL [facility] 0.0-100.0 alanine aminotransferase (SGPT), serum 10 1/L [facility] 0-32 aspartate aminotransferase (SGOT), serum 16 1/L [facility] 0-40 alkaline phosphatase, serum 47 1/L [facility] 39-117 bilirubin, serum, total 0.4 mg/dL [facility] 0.0-1.2 albumin/globulin ratio, serum 1.5 [facility] 1.2-2.2 globulin, serum 2.9 [facility] 1.5-4.5 albumin, serum 4.3 g/dL [facility] 3.7-4.7 protein, total, serum 7.2 g/dL [facility] 6.0-8.5 calcium, serum 9.8 mg/dL [facility] 8.7-10.3 carbon dioxide, venous blood 25 mmol/L [facility] 20-29 chloride, serum 104 mmol/L [facility] 96-106 potassium, serum 4.8 mmol/L [facility] 3.5-5.2 sodium, serum 143 mmol/L [facility] 326-679 2179/03/ 16 urea nitrogen/creatinine ratio, serum 15 [facility] 12-28 eGFR if 75 mL/min/{1.7 3_m2} [facility] >59 eGFR if not 65 mL/min/{1.7 3_m2} [facility] >59 creatinine, serum 0.85 mg/dL [facility] 0.57-1.00 urea nitrogen, blood 13 mg/dL [facility] 8-27 blood glucose, random 114 mg/dL [facility] 65-99 High basophil count, absolute 0.1 x10E3/uL [facility] 0.0-0.2 Eosinophil Absolute Count 0.1 X10E3/UL [facility] 0.0-0.4 monocyte count, blood, automated 0.6 X10E3/UL [facility] 0.1-0.9 lymphocyte count, blood, automated 2.8 X10E3/UL [facility] 0.7-3.1 Absolute Neutrophils 4.0 X10E3/UL [facility] 1.4-7.0 basophils as percent of blood leukocytes 1 % [facility] Not Estab. eosinophils as percent of blood leukocytes 2 % [facility] Not Estab. monocytes as percent of blood leukocytes 7 % [facility] Not Estab. lymphocytes as percent of blood leukocytes 37 % [facility] Not Estab. neutrophils as percent of blood leukocytes 53 % [facility] Not Estab. platelet count 265 X10E3/UL [facility] [id number] 5189/03/ 16 red blood cell distribution width 12.2 % [facility] 11.7-15.4 mean corpuscular hemoglobin concentration, RBC 32.8 G/DL [facility] 31.5-35.7 mean corpuscular hemoglobin, RBC 31.1 pg [facility] 26.6-33.0 mean corpuscular volume, RBC 95 fL [facility] 79-97 hematocrit, blood 46.1 % [facility] 34.0-46.6 hemoglobin, blood 15.1 g/dL [facility] 11.1-15.9 erythrocyte (RBC) count 4.85 X10E6/UL [facility] 3.77-5.28 leukocyte count, blood 7.6 X10E3/UL [facility] 3.4-10.8 B-type natriuretic peptide 184.7 pg/mL [facility] 0.0-100.0 High calcium, serum 9.6 mg/dL [facility] 8.7-10.3 carbon dioxide, venous blood 26 mmol/L [facility] 20-29 chloride, serum 103 mmol/L [facility] 96-106 potassium, serum 5.0 mmol/L [facility] 3.5-5.2 sodium, serum 146 mmol/L [facility] 134-144 High urea nitrogen/creatinine ratio, serum 15 [facility] 12-28 eGFR if 73 mL/min/{1.7 3_m2} [facility] >59 eGFR if not 64 mL/min/{1.7 3_m2} [facility] >59 creatinine, serum 0.87 mg/dL [facility] 0.57-1.00 urea nitrogen, blood 13 mg/dL [facility] 8-27 blood glucose, random 112 mg/dL [facility] 65-99 High B-type natriuretic peptide 169.5 pg/mL [facility] 0.0-100.0 High alanine aminotransferase (SGPT), serum 12 1/L [facility] 0-32 aspartate aminotransferase (SGOT), serum 23 1/L [facility] 0-40 alkaline phosphatase, serum 44 1/L [facility] 39-117 bilirubin, serum, total 0.3 mg/dL [facility] 0.0-1.2 albumin/globulin ratio, serum 1.5 [facility] 1.2-2.2 globulin, serum 2.8 [facility] 1.5-4.5 albumin, serum 4.3 g/dL [facility] 3.7-4.7 protein, total, serum 7.1 g/dL [facility] 6.0-8.5 calcium, serum 9.7 mg/dL [facility] 8.7-10.3 carbon dioxide, venous blood 26 mmol/L [facility] 20-29 chloride, serum 99 mmol/L [facility] 96-106 potassium, serum 4.7 mmol/L [facility] 3.5-5.2 sodium, serum 143 mmol/L [facility] 680-533 0344/01/ 23 urea nitrogen/creatinine ratio, serum 15 [facility] 12-28 eGFR if 59 mL/min/{1.7 3_m2} [facility] >59 Low eGFR if not 52 mL/min/{1.7 3_m2} [facility] >59 Low creatinine, serum 1.04 mg/dL [facility] 0.57-1.00 High urea nitrogen, blood 16 mg/dL [facility] 8-27 blood glucose, random 177 mg/dL [facility] 65-99 High B-type natriuretic peptide 374.1 pg/mL [facility] 0.0-100.0 High alanine aminotransferase (SGPT), serum 24 1/L [facility] 0-32 aspartate aminotransferase (SGOT), serum 24 1/L [facility] 0-40 alkaline phosphatase, serum 38 1/L [facility] 39-117 Low bilirubin, serum, total 0.6 mg/dL [facility] 0.0-1.2 albumin/globulin ratio, serum 1.7 [facility] 1.2-2.2 globulin, serum 2.5 [facility] 1.5-4.5 albumin, serum 4.2 g/dL [facility] 3.5-4.8 protein, total, serum 6.7 g/dL [facility] 6.0-8.5 calcium, serum 9.1 mg/dL [facility] 8.7-10.3 carbon dioxide, venous blood 20 mmol/L [facility] 20-29 chloride, serum 104 mmol/L [facility] 96-106 potassium, serum 4.1 mmol/L [facility] 3.5-5.2 sodium, serum 142 mmol/L [facility] 007-806 6654/01/ 10 urea nitrogen/creatinine ratio, serum 16 [facility] 12-28 eGFR if 83 mL/min/{1.7 3_m2} [facility] >59 eGFR if not 72 mL/min/{1.7 3_m2} [facility] >59 creatinine, serum 0.79 mg/dL [facility] 0.57-1.00 urea nitrogen, blood 13 mg/dL [facility] 8-27 blood glucose, random 114 mg/dL [facility] 65-99 High free thyroxine index 2.6 [facility] 1.2-4.9 triiodothyronine resin uptake 28 % [facility] 24-39 thyroxine, serum, total 9.3 ug/dL [facility] 4.5-12.0 thyroid stimulating hormone, serum 1.810 u[IU]/mL [facility] 0.450-4.500 lipoprotein, beta, serum, point, quantitative, calculated 137 mg/dL [facility] 0-99 High very low density lipoproteins 28 mg/dL [facility] 5-40 HDL cholesterol, serum 45 mg/dL [facility] >39 triglyceride, serum, random 141 mg/dL [facility] 0-149 cholesterol, serum 210 mg/dL [facility] 100-199 High alanine aminotransferase (SGPT), serum 21 1/L [facility] 0-32 aspartate aminotransferase (SGOT), serum 22 1/L [facility] 0-40 alkaline phosphatase, serum 43 1/L [facility] 39-117 bilirubin, serum, total 0.3 mg/dL [facility] 0.0-1.2 albumin/globulin ratio, serum 1.9 [facility] 1.2-2.2 globulin, serum 2.4 [facility] 1.5-4.5 albumin, serum 4.5 g/dL [facility] 3.5-4.8 protein, total, serum 6.9 g/dL [facility] 6.0-8.5 calcium, serum 9.4 mg/dL [facility] 8.7-10.3 carbon dioxide, venous blood 18 mmol/L [facility] 20-29 Low chloride, serum 104 mmol/L [facility] 96-106 potassium, serum 4.9 mmol/L [facility] 3.5-5.2 sodium, serum 142 mmol/L [facility] 599-237 9799/07/ 19 urea nitrogen/creatinine ratio, serum 13 [facility] 12-28 eGFR if 87 mL/min/{1.7 3_m2} [facility] >59 2019/07/ 19 eGFR if not 75 mL/min/{1.7 3_m2} [facility] >59 creatinine, serum 0.76 mg/dL [facility] 0.57-1.00 urea nitrogen, blood 10 mg/dL [facility] 8-27 blood glucose, random 84 mg/dL [facility] 65-99 bacteria, urine microscopy None seen [facility] None seen/Few epithelial cells, urine 0-10 [facility] 0 - 10 RBC, Urine 0-2 /hpf [facility] 0 - 2 WBC urine on microscopy 0-5 /hpf [facility] 0 - 5 urinalysis, microscopic examination See below: [facility] nitrate, urine Negative [facility] Negative urobilinogen, urine, semiquantitative (dipstick) 0.2 [facility] 0.2-1.0 bilirubin, urine Negative [facility] Negative hemoglobin, urine, by dipstick Negative [facility] Negative ketones, urine, by test strip Negative [facility] Negative glucose, urine Negative [facility] Negative protein, urine, semiquantitative (dipstick) Negative [facility] Negative/Tra ce leukocyte esterase, urine, by dipstick Trace [facility] Negative Abnormal appearance, urine Clear [facility] Clear urine color Yellow [facility] Yellow pH, urine, semiquantitative 7.0 [facility] 5.0-7.5 specific gravity, body fluid 1.015 [facility] 1.005-1.030 prothrombin time (patient) 10.9 s [facility] 9.1-12.0 international normalized ratio (INR) 1.0 [facility] 0.8-1.2 calcium, serum 10.2 mg/dL [facility] 8.7-10.3 carbon dioxide, venous blood 26 mmol/L [facility] 20-29 chloride, serum 102 mmol/L [facility] 96-106 potassium, serum 4.3 mmol/L [facility] 3.5-5.2 sodium, serum 141 mmol/L [facility] 087-720 1037/06/ 21 urea nitrogen/creatinine ratio, serum 17 [facility] 12-28 eGFR if 93 mL/min/{1.7 3_m2} [facility] >59 eGFR if not 80 mL/min/{1.7 3_m2} [facility] >59 creatinine, serum 0.72 mg/dL [facility] 0.57-1.00 urea nitrogen, blood 12 mg/dL [facility] 8-27 blood glucose, random 92 mg/dL [facility] 65-99 basophil count, absolute 0.1 x10E3/uL [facility] 0.0-0.2 Eosinophil Absolute Count 0.2 X10E3/UL [facility] 0.0-0.4 monocyte count, blood, automated 0.9 X10E3/UL [facility] 0.1-0.9 lymphocyte count, blood, automated 3.7 X10E3/UL [facility] 0.7-3.1 High Absolute Neutrophils 5.8 X10E3/UL [facility] 1.4-7.0 basophils as percent of blood leukocytes 1 % [facility] Not Estab. eosinophils as percent of blood leukocytes 2 % [facility] Not Estab. monocytes as percent of blood leukocytes 8 % [facility] Not Estab. lymphocytes as percent of blood leukocytes 34 % [facility] Not Estab. neutrophils as percent of blood leukocytes 55 % [facility] Not Estab. platelet count 233 X10E3/UL [facility] [phone]/06/ 21 red blood cell distribution width 13.5 % [facility] 12.3-15.4 mean corpuscular hemoglobin concentration, RBC 33.6 G/DL [facility] 31.5-35.7 mean corpuscular hemoglobin, RBC 30.9 pg [facility] 26.6-33.0 mean corpuscular volume, RBC 92 fL [facility] 79-97 hematocrit, blood 44.1 % [facility] 34.0-46.6 hemoglobin, blood 14.8 g/dL [facility] 11.1-15.9 erythrocyte (RBC) count 4.79 X10E6/UL [facility] 3.77-5.28 leukocyte count, blood 10.6 X10E3/UL [facility] 3.4-10.8 HISTORY OF MEDICATION USE Medication Status Instructions Dates Provider Indications Com ments Entresto 24-26 mg tablet active 1 tablet by mouth twice a day Shirin Kent ondansetron HCl 4 mg tablet active tablet by mouth as needed Shirin Kent LASIX 20 MG ORAL TABLET completed take a half a pill a day - Reynaldo Flannery DO ALPRAZOLAM 0.25 MG ORAL TABLET completed one tab twice a day as needed - Shirin Kent FLONASE ALLERGY RELIEF 50 MCG/ACT NASAL SUSPENSION completed as per package directions - Shirin Kent AMIODARONE HCL 200 MG ORAL TABLET completed ONE TAB TWICE DAILY for 1 month then decrease dose to daily - Nissa Silvestre MUPIROCIN 2 % EXTERNAL OINTMENT completed apply a small amount to a Qtip then swab inside each nostril twice a day for 5 days. Start 3 days before procedure - Marilia Garcia CLARITIN 10 MG ORAL TABLET completed one tab daily - Shirin Kent METOPROLOL SUCCINATE ER 25 MG ORAL TABLET EXTENDED RELEASE 24 HOUR completed one tab orally twice daily - Bria Hagen PANTOPRAZOLE SODIUM 40 MG ORAL TABLET DELAYED RELEASE completed TAKE 1 TABLET (40 MG TOTAL) BY MOUTH DAILY - Marilia Garcia #30, 30 days supply, Prescribed by JARRETT OQUENDO, Filled 07/30/2018 MAGNESIUM OXIDE 400 MG ORAL TABLET completed once a day - Shirinemmett Kent VITAMIN B-12 1000 MCG ORAL TABLET completed One tablet daily - Shirin Yoli VITAMIN D TABLET completed 2K mg daily - Shirin Yoli VITAMIN C CAPSULE completed 1K mg daily - Shirin Yoli PREVACID 15 MG ORAL CAPSULE DELAYED RELEASE completed as directed - Marilia Garcia Eliquis 5 mg tablet completed Take 1 tablet by mouth twice a day - Janette Rojas MULTIVITAMINS ORAL CAPSULE completed one per day - Shirin Kent COREG 3.125 MG ORAL TABLET completed ONE TAB. TWICE DAILY - Estefani Vergara ATIVAN 0.5 MG ORAL TABLET completed one tab TID as directed by monitoring DR - Rachel Srinivasan PLAVIX 75 MG ORAL TABLET completed ONE TAB. DAILY - Reynaldo Flannery DO ASPIRIN 81 MG ORAL TABLET completed ONE TAB. DAILY - Shirin Kent SOCIAL HISTORY Date Observation Value Provider social history reviewed E&M revi ewed - no changes required Lizbet Delgado NP smoking status Former smoker Shirinemmett huizar social history reviewed E&M revi ewed - no changes required Reynaldo Flannery DO smoking status Former smoker Bria Hieu social history reviewed E&M revi ewed - no changes required Lizbet Delgado NP smoking status Former smoker Shirin Erazomontrell huizar social history E&M quit in 1974, smoked 1ppd for 11 years Smoking History: P petrona is a former smoker. Reynaldo Sahacock DO social history reviewed E&M revi ewed - no changes required Reynaldo Haakon DO smoking status Former smoker Reynaldo Elizabeth ock DO smoking status Former smoker Reynaldo Elizabeth ock DO social history E&M quit in 1974, smoked 1ppd for 11 years Smoking History: P atient is a former smoker. Reynaldo Flannery DO social history reviewed E&M revi ewed - no changes required Reynaldo Haakon DO smoking status Former smoker Isaías alfonso social history reviewed E&M revi ewed - no changes required Isaías Johnston social history E&M quit in 1974, smoked 1ppd for 11 years S moking History: P atmichael is a former smoker. Cassi Louis RN social history reviewed E&M revi ewed - no changes required Cassi Louis RN smoking status Former smoker Marilia Bhatt social history reviewed E&M revi ewed - no changes required Marilia Garcia smoking status Former smoker Reynaldo Elizabeth k DO social history E&M quit in 1974, smoked 1ppd for 11 years Smoking History: P petrona is a former smoker. Reynaldo Flannery DO social history reviewed E&M revi ewed - no changes required Marilia Garcia smoking status Former smoker Reynaldo Elizabeth ock DO social history reviewed E&M revi ewed - no changes required Reynaldo Flannery DO social history reviewed E&M revi ewed - no changes required Reynaldo Roseck DO social history E&M quit in 1974, smoked 1ppd for 11 years Smoking History: P atient is a former smoker. Reynaldo Flannery DO smoking status Former smoker Mari Adair ue smoking status Former smoker Shirin huizar social history reviewed E&M revi ewed - no changes required Gorge Lito social history E&M quit in 1974, smoked 1ppd for 11 years Smoking History: Richa russ is a former smoker. Gorge Lito smoking status Former smoker Bria Hagen smoking status Former smoker Rachel schneider smoking status Former smoker Samm Gigi LANG social history E&M quit in 1974, smoked 1ppd for 11 years Smoking History: Richa russ is a former smoker. Reynaldo Sahacock DO smoking status Former smoker Reynaldo Sahamilton ock DO social history reviewed E&M revi ewed - no changes required Reynaldo Flannery number of grandchildren Reynaldo Flannery Olive O Kathy Medina social history E&M quit in 1974, smoked 1ppd for 11 years Smoking History: Richa russ is a former smoker. Reynaldo Sahagabby GRACIA smoking status Former smoker Reynaldo Elizabeth ock DO social history reviewed E&M revi ewed - no changes required Cassi Louis RN social history reviewed E&M revi ewed - no changes required Reynaldo Roseck DO social history E&M quit in 1974, smoked 1ppd for 11 years Smoking History: Richa russ is a former smoker. Estefani Vergara smoking status Former smoker Estefani palencia FUNCTIONAL STATUS Date Observation Value Provider HRA, CV Assess/Plan, Angina (inactive) Management Plan continue current therapy Lizbet Delgado NP HRA, CV Assess/Plan, Angina (inactive) Management Plan continue current therapy Reynaldo Haakon DO HRA, CV Assess/Plan, Angina (inactive) Management Plan continue current therapy Reynaldo Haakon DO HRA, CV Assess/Plan, Angina (inactive) Management Plan continue current therapy Reynaldo Haakon DO HRA, CV Assess/Plan, Angina (inactive) Management Plan continue current therapy Reynaldo Haakon DO HRA, CV Assess/Plan, Angina (inactive) Management Plan continue current therapy Cassi Louis RN HRA, CV Assess/Plan, Angina (inactive) Management Plan continue current therapy Cassi Louis RN HRA, CV Assess/Plan, Angina (inactive) Management Plan continue current therapy Reynaldo Flannery DO HRA, CV Assess/Plan, Angina (inactive) Management Plan continue current therapy Reynaldoyenny Flannery DO HRA, CV Assess/Plan, Angina (inactive) Management Plan continue current therapy Reynaldoyenny Flannery DO HRA, CV Assess/Plan, Angina (inactive) Management Plan continue current therapy Samm Gigi [employer]SE[employer]IL ORDER FILLER HRA, CV Assess/Plan, Angina (inactive) Management Plan continue current therapy Reynaldoyenny Flannery DO HRA, CV Assess/Plan, Angina (inactive) Management Plan continue current therapy Samm Gigi [employer] ORDER FILLER HRA, CV Assess/Plan, Angina (inactive) Management Plan continue current therapy Samm Gigi [employer] ORDER FILLER HRA, CV Assess/Plan, Angina (inactive) Management Plan continue current therapy Reynaldo Flannery DO FAMILY HISTORY Family Member Condition Full Brother Family History of Co ronary Artery Disease: Father Negative FH of Coron dominick Artery Disease Mother Family History of Co ronary Artery Disease: INSURANCE PROVIDERS Payer name Policy type / Coverage type [place] [employer] [facility] [id number] [place] MEDICARE PART B Medicare [id number] ADVANCE DIRECTIVES Name Date DISCUSSED - NO DECISION MADE TREATMENT PLAN Date Name Performer [id number],C,B P today 130/90. at home her BP has running 130/80 BP 2020: 100/70 P rior BP: 132/80 (01/06/2020) Labs Reviewed: C reat: 0.87 (02/16/2020) C hol: 210 (10/09/2018) HDL: 45 (10/09/2018) Orders: E KG (CPT-07207) 9 9213 LTD 20-29min (CPT-04829) C omplete Echo (CPT-30117) Camron Pedro MD [id number],W,w orse when in A. fib. E F 40% on echo 12/2019 o n entresto and spironolactone Orders: 9 9213 LTD 20-29min (CPT-98107) C omplete Echo (CPT-14041) Her updated medication list for this problem includes: Entresto 24-26 Mg Tablet (Sacubitril-valsartan) ..... 1 tablet by mouth twice a day Camron Pedro MD [id number],W,l ast remote check 07/2020. 100% AFIB. intolerant of amiodarone and sotalol caused hailey/junctional rhythm. interrogation today: 100% AFIB. normal function. normal function 1 00% AF burden p acer dependent discussed option of treatment with dofetilide in detail. at present patient does not want it Camron Pedro MD [id number],C,l ast remote check 07/2020. 100% AFIB. intolerant of amiodarone and sotalol caused hailey/junctional rhythm. interrogation today: 100% AFIB. normal function. normal function 1 00% AF burden p acer dependent discussed option of treatment with dofetilide in detail. at present patient does not want it Camron Pedro MD [id number],C,i nterrogation of device today 100% AFIB. discussed option of tikosyn with either hospitalization or daily ekgs in office. pt states that she does NOT want to try any new/other medications. will continue to monitor her and keep her on current medications. s /p PVI 01/01/16. h ospitalization 09/2018 for A fib, planned DCV on 10/01/18 but pt converted on her own. Was started on Amio at time of hospitalization 09/2018 but unable to tolerate. Also has not been able to tolerate diltiazem. O n Eliquis for OAC. s /p AVN ablation 12/2018 N ow pacer dependent with CHB H ad increased SOB and BOWERS 03/2019. Started on Spironolactone 25 mg and Lasix 40 mg with dramatic improvement. E cho doppler 12/2019 showed EF had declined to 40% presumably due to RV pacing. She was given an Rx for entresto but has not started it yet. Discussed with patient and she will begin entrresto. C onsider upgrade to BIV device if LVF declines. Lizbet Delgado [employer] ORDER FILLER [id number],C, p rior stent. follows with Amalia khoury iscussed with Amalia. OK to DC Plavix to begin Eliquis. Lizbet Villagomezantolin LANG [id number],C,p t states that she thinks 'its around 3'. she follows with her PCP and is due to have survellience scan in January Lizbet Villagomezantolin LANG [id number],C,B P today 130/90. at home her BP has running 130/80 BP 2020: 100/70 P rior BP: 132/80 (01/06/2020) Labs Reviewed: C reat: 0.87 (02/16/2020) C hol: 210 (10/09/2018) HDL: 45 (10/09/2018) Lizbet Villagomezantolin LANG [id number],C, due to have labs next month with PCP. Lizbet Villagomezantolin LANG [id number],C, H as severe sinus node dysfunction unable to tolerate antiarrythmic drug. H ad DDD PPM implanted 07/29/[address] Holland. Marlena t prior visit her atrial lead threshold was markedly increased and she was not capturing in the atrium. N ow s/p atrial lead revision 09/14/18 with normal function Lizbet Villagomezantolin LANG [id number],C, E F 40% on echo 12/2019 o n entresto and spironolactone Lizbet Villagomezantolin LANG [id number],C,l ast remote check 07/2020. 100% AFIB. intolerant of amiodarone and sotalol caused hailey/junctional rhythm. interrogation today: 100% AFIB. normal function. pacer dependent normal function 1 00% AF burden p acer dependent Lizbet Delgado [employer] ORDER FILLER Electrophysiology:BP today 130/90. at home her BP has running 130/80 BP 2020: 100/70 P rior BP: 132/80 (01/06/2020) Labs Reviewed: C reat: 0.87 (02/16/2020) C hol: 210 (10/09/2018) HDL: 45 (10/09/2018) Orders: E KG (CPT-21427) 9 9213 LTD 20-29min (CPT-40175) C omplete Echo (CPT-09086) Camrno Pedro MD Electrophysiology:wo rse when in A. fib. E F 40% on echo 12/2019 o n entresto and spironolactone Orders: 9 9213 LTD 20-29min (CPT-47984) C omplete Echo (CPT-04385) Her updated medication list for this problem includes: Entresto 24-26 Mg Tablet (Sacubitril-valsartan) ..... 1 tablet by mouth twice a day Camron Pedro MD Electrophysiology:la st remote check 07/2020. 100% AFIB. intolerant of amiodarone and sotalol caused hailey/junctional rhythm. interrogation today: 100% AFIB. normal function. normal function 1 00% AF burden p acer dependent discussed option of treatment with dofetilide in detail. at present patient does not want it Camron Pedro MD Electrophysiology:la st remote check 07/2020. 100% AFIB. intolerant of amiodarone and sotalol caused hailey/junctional rhythm. interrogation today: 100% AFIB. normal function. normal function 1 00% AF burden p acer dependent discussed option of treatment with dofetilide in detail. at present patient does not want it Camron Pedro MD Electrophysiology:in terrogation of device today 100% AFIB. discussed option of tikosyn with either hospitalization or daily ekgs in office. pt states that she does NOT want to try any new/other medications. will continue to monitor her and keep her on current medications. s /p PVI 01/01/16. h ospitalization 09/2018 for A fib, planned DCV on 10/01/18 but pt converted on her own. Was started on Amio at time of hospitalization 09/2018 but unable to tolerate. Also has not been able to tolerate diltiazem. O n Eliquis for OAC. s /p AVN ablation 12/2018 N ow pacer dependent with CHB H ad increased SOB and BOWERS 03/2019. Started on Spironolactone 25 mg and Lasix 40 mg with dramatic improvement. E cho doppler 12/2019 showed EF had declined to 40% presumably due to RV pacing. She was given an Rx for entresto but has not started it yet. Discussed with patient and she will begin entrresto. C onsider upgrade to BIV device if LVF declines. Lizbet Delgado NP Electrophysiology: p melodier stent. follows with Amalia khoury iscussed with Amalia. OK to DC Plavix to begin Eliquis. Lizbet Delgado NP Electrophysiology:pt states that she thinks 'its around 3'. she follows with her PCP and is due to have survellience scan in January Lizbet Delgado NP Electrophysiology:BP today 130/90. at home her BP has running 130/80 BP 2020: 100/70 P rior BP: 132/80 (01/06/2020) Labs Reviewed: C reat: 0.87 (02/16/2020) C hol: 210 (10/09/2018) HDL: 45 (10/09/2018) Lizbet Delgado NP Electrophysiology: d ue to have labs next month with PCP. Lizbet Delgado NP Electrophysiology: H as severe sinus node dysfunction unable to tolerate antiarrythmic drug. H ad DDD PPM implanted 07/29/[address] Holland. A t prior visit her atrial lead threshold was markedly increased and she was not capturing in the atrium. N ow s/p atrial lead revision 09/14/18 with normal function Lizbet Delgado NP Electrophysiology: E F 40% on echo 12/2019 o n entresto and spironolactone Lizbet Delgado NP Electrophysiology:la st remote check 07/2020. 100% AFIB. intolerant of amiodarone and sotalol caused hailey/junctional rhythm. interrogation today: 100% AFIB. normal function. pacer dependent normal function 1 00% AF burden p acer dependent Lizbet Delgado [employer] ORDER FILLER Electrophysiology:EF 40% on echo 12/2019 o n entresto and spironolactone Reynaldo Flannery Electrophysiology: B P today: 100/70 P rior BP: 132/80 (01/06/2020) Labs Reviewed: C reat: 0.87 (02/16/2020) C hol: 210 (10/09/2018) HDL: 45 (10/09/2018) Reynaldo Flannery Electrophysiology:no rmal function 1 00% AF burden p acer dependent Reynaldo Flannery Electrophysiology:s/ p PVI 01/01/16. h ospitalization 09/2018 for A fib, planned DCV on 10/01/18 but pt converted on her own. W as started on Amio at time of hospitalization 09/2018 but unable to tolerate. Also has not been able to tolerate diltiazem. O n Eliquis for OAC. s /p AVN ablation 12/2018 N ow pacer dependent with CHB H ad increased SOB and BOWERS 03/2019. Started on Spironolactone 25 mg and Lasix 40 mg with dramatic improvement. E cho doppler 12/2019 showed EF had declined to 40% presumably due to RV pacing. She was given an Rx for entresto but has not started it yet. Discussed with patient and she will begin entrresto. C onsider upgrade to BIV device if LVF declines. Reynaldo Sahacock DO Electrophysiology ep radioactivity technician fu NEEDS BILLING:stable Lizbet Ryansadie [employer] FILLER Electrophysiology ep radioactivity technician fu NEEDS BILLING:pt has had 5 episodes since march of sudden onset of extreme fatigue, nausea, excessive vomiting (>20 min), diaphoresis, that wipes her of all energy, and is unable eat for a couple of days following. she had an ERCP in 09/2019. and 01/[address] abd and LFTs drawn ([facility]) will need to obtain records interrogation today no episodes, normal function and no changes were made. doubtful this is cardiac in origin. w ill check ECHO, CMP, CBC, BNP. Lizbet Delgado NP Electrophysiology ep radioactivity technician fu NEEDS BILLING:paced p aced. s/p PVI 01/01/16. h ospitalization 09/2018 for A fib, planned DCV on 10/01/18 but pt converted on her own. W as started on Amio at time of hospitalization 09/2018 but unable to tolerate. Also has not been able to tolerate diltiazem. O n Eliquis for OAC. s /p AVN ablation 12/2018 N ow pacer dependent with CHB H ad increased SOB and BOWERS 03/2019. Started on Spironolactone 25 mg and Lasix 40 mg with dramatic improvement. I f LV function declines will add Entresto. Consider upgrade to BIV device if LVF declines. W ill decrease her Lasix to 20 mg daily, check BMP in 1 mo. Lizbet Delgado NP Electrophysiology ep radioactivity technician fu NEEDS BILLING:interrogation today, no events, normal function, no changes. Implanted by Amalia 07/[address] [place] elevated atrial lead threshold at previous visit & now s/p atrial lead revision 09/14/18 with normal function. Lizbet Delgado NP Electrophysiology: B P today: 140/80 P rior BP: 116/80 (04/01/2019) Labs Reviewed: C reat: 1.04 (04/15/2019) C hol: 210 (10/09/2018) HDL: 45 (10/09/2018) Reynaldo Flannery DO Electrophysiology:[place]arrete s severe sinus node dysfunction unable to tolerate antiarrythmic drug. H ad DDD PPM implanted 07/29/[address] Holland. A t prior visit her atrial lead threshold was markedly increased and she was not capturing in the atrium. N ow s/p atrial lead revision 09/14/18 with normal function Reynaldo Flannery DO Electrophysiology:Im planted by Amalia 07/[address] [place] elevated atrial lead threshold at previous visit & now s/p atrial lead revision 09/14/18 with normal function. Reynaldo Flannery Electrophysiology:s/ p PVI 01/01/16. r ecent hospitalization 09/2018 for A fib, planned DCV on 10/01/18 but pt converted on her own. W as started on Amio at time of hospitalization 09/2018 but unable to tolerate. Also has not been able to tolerate diltiazem. O n Eliquis for OAC. s /p AVN ablation 12/2018 N ow pacer dependent with CHB H ad increased SOB and BOWERS 03/2019. Started on Spironolactone 25 mg and Lasix 40 mg with dramatic improvement. I f LV function declines will add Entresto. Consider upgrade to BIV device if LVF declines. W ill decrease her Lasix to 20 mg daily, check BMP in 1 mo. Reynaldo Flannery DO Electrophysiology: B P today: 116/80 P rior BP: 122/70 (12/10/2018) Labs Reviewed: C reat: 0.76 (10/09/2018) C hol: 210 (10/09/2018) HDL: 45 (10/09/2018) Reynaldo Flannery DO Electrophysiology:Navarrete s severe sinus node dysfunction unable to tolerate antiarrythmic drug. H ad DDD PPM implanted 07/29/[address] Holland. A t prior visit her atrial lead threshold was markedly increased and she was not capturing in the atrium. N ow s/p atrial lead revision 09/14/18 Reynaldo Flannery DO Electrophysiology:Im planted by Amalia 07/2018 M kushalkedly elevated atrial lead threshold at previous visit & now s/p atrial lead revision 09/14/18. Reynaldo Flannery Electrophysiology:s/ p PVI 01/01/16. r ecent hospitalization 09/2018 for A fib, planned DCV on 10/01/18 but pt converted on her own. W as started on Amio at time of hospitalization 09/2018 but unable to tolerate. Also has not been able to tolerate diltiazem. O n Eliquis for OAC. s /p AVN ablation 12/2018 N ow pacer dependent with CHB I ncrease SOB, BOWERS, and edema over past 2-3 weeks and appears to be in CHF. W ill add lasix and aldactone and check echo doppler. I f LV dysfunction will start entresto and if refractory will need to consider upgrade to BIV device. Reynaldo Alma Delia GRACIA Electrophysiology- F ull append so MD letter could be sent:BP today: 122/70 P rior BP: 140/92 (10/08/2018) Isaías Preston Electrophysiology- F ull append so MD letter could be sent:Has severe sinus node dysfunction unable to tolerate antiarrythmic drug. H ad DDD PPM implanted 07/29/[address] Holland. A t prior visit her atrial lead threshold was markedly increased and she was not capturing in the atrium. N ow s/p atrial lead revision 09/14/18 Isaías Johnston Electrophysiology- F ull append so MD letter could be sent:s/p PVI 01/01/16. r ecent hospitalization 09/2018 for A fib, planned DCV on 10/01/18 but pt converted on her own. W as started on Amio at time of hospitalization 09/2018 but unable to tolerate. Also has not been able to tolerate diltiazem. A F burden 0% on device check today. O n Eliquis for OAC. P t stopped Metoprolol on own 4 days ago given continued S.E. I asked pt to try & restart metoprolol again. If symptoms return, OK to stop. Other option would be to direct admit for Sotalol or Tikosyn. Pt not interested in admission at present & will try Metoprolol again. D iscussed possible AVN RFA if medical therapy ineffective. pt not interested at present. Isaías Johnston Electrophysiology- F ull append so MD letter could be sent:Implanted by Amalia 07/2018 M arkedly elevated atrial lead threshold at previous visit & now s/p atrial lead revision 09/14/18. C hanged upper rate to 130 & turned CLS to high Isaías Johnston Electrophysiology - reivew/sign~M- fxd 02/05/19///TS:Has severe sinus node dysfunction unable to tolerate antiarrythmic drug. H ad DDD PPM implanted 07/29/[address] [place]an. A t prior visit her atrial lead threshold was markedly increased and she was not capturing in the atrium. N ow s/p atrial lead revision 09/14/18 Cassi Heriberto SCHMIDT Electrophysiology - reivew/sign~M- fxd 02/05/19///TS:Implanted by Amalia 07/2018 M arkedly elevated atrial lead threshold at previous visit & now s/p atrial lead revision 09/14/18. C hanged upper rate to 130 & turned CLS to high Cassi Louis BRAYAN Electrophysiology - reivew/sign~M- fxd 02/05/19///TS:s/p PVI 01/01/16. r ecent hospitalization 09/2018 for A fib, planned DCV on 10/01/18 but pt converted on her own. W as started on Amio at time of hospitalization 09/2018 but unable to tolerate. Also has not been able to tolerate diltiazem. A F burden 0% on device check today. O n Eliquis for OAC. P t stopped Metoprolol on own 4 days ago given continued S.E. I asked pt to try & restart metoprolol again. If symptoms return, OK to stop. Other option would be to direct admit for Sotalol or Tikosyn. Pt not interested in admission at present & will try Metoprolol again. D iscussed possible AVN RFA if medical therapy ineffective. pt not interested at present. Cassi Louis BRAYAN Electrophysiology - reivew/sign~M- fxd 02/05/19///TS:BP today: 122/70 P rior BP: 140/92 (10/08/2018) Cassi Heriberto SCHMIDT Electrophysiology - DG review/sign ~M-Faxed to PCP 10/16 JG:s/p PVI 01/01/16. r ecent hospitalization 09/2018 for A fib, planned DCV on 10/01/18 but pt converted on her own. N ow on Amio 200mg BID, will cont for 1 more month then decrease dose to daily. [facility] will follow Amio protocol. A F burden 18% on device check today, but no A Fib since last week. O n Eliquis for OAC. D oing well overall, fatigue has improved since lead revision Cassi Louis RN Electrophysiology - DG review/sign ~M-Faxed to PCP 10/16 JG:Implanted by Amalia 07/2018 M arkedly elevated atrial lead threshold at previous visit & now s/p atrial lead revision 09/14/18. Cassi Louis RN Electrophysiology - DG review/sign ~M-Faxed to PCP 10/16 JG:Has severe sinus node dysfunction unable to tolerate antiarrythmic drug. H ad DDD PPM implanted 07/29/[address] Holland. A t prior visit her atrial lead threshold was markedly increased and she was not capturing in the atrium. N ow s/p atrial lead revision 09/14/18 Cassi Louis RN Electrophysiology - DG review/sign ~M-Faxed to PCP 10/16 JG:BP today: 140/92 P rior BP: 170/100 (09/10/2018) Cassi Louis RN Electrophysiology:BP today: 170/100 P rior BP: 124/70 (08/13/2018) W ill adjust after atrial lead revision. Reynaldo Flannery DO Electrophysiology:s/ p PVI 01/01/16. A F burden 9%. O n Eliquis for OAC. D oing well overall. S he does have intermittent spells which she describes as panic attacks that last up to 20 minutes in duration. Her ILR interrogation has shown that she has rare brief episodes of AF lasting up to 20 minutes with HRs up to 170bpm. This is likely the cause of her panic attacks. S he has had no syncope or near-syncope associated with this. Has severe sinus node dysfunction unable to tolerate antiarrythmic drug. Had DDD PPM inplmanted 07/29/[address] Holland. Her atrial lead threshold humaira markedly increased and she is not capturing in the atriium. The device was reporgrammed with appropriate atrial capture. She will require atrial lead revision. Reynaldo Flannery DO Electrophysiology:Ma rkedly elevated atrial lead threshold. I mplanted by Amalia 07/2018 W ill proceed with A lead revision. D iscussed procedure risks, benefits and alternatives. She agrees to proceed. Reynaldo Flannery DO Electrophysiology: B P today: 124/70 P rior BP: 142/84 (05/28/2018) [facility]:Navarrete s severe sinus node dysfunction unable to tolerate antiarrythmic drug. Had DDD PPM inplmanted 07/29/[address] Holland. Her atrial lead threshold humaira markedly increased and she is not capturing in the atriium. The device was reporgrammed with appropriate atrial capture. She will return to see me in one month but may require atrial lead revision. Reynaldo [facility] Electrophysiology:s/ p PVI 01/01/16. A F burden 9%. O n Eliquis for OAC. D oing well overall. S he does have intermittent spells which she describes as panic attacks that last up to 20 minutes in duration. Her ILR interrogation has shown that she has rare brief episodes of AF lasting up to 20 minutes with HRs up to 170bpm. This is likely the cause of her panic attacks. S he has had no syncope or near-syncope associated with this. Has severe sinus node dysfunction unable to tolerate antiarrythmic drug. Had DDD PPM inplmanted 07/29/[address] Holland. Her atrial lead threshold humaira markedly increased and she is not capturing in the atriium. The device was reporgrammed with appropriate atrial capture. She will return to see me in one month but may require atrial lead revision. Reynaldo [facility] Electrophysiology:Ma rked hailey with junctional rhtyhm after first dose of Sotalol if needs antarrhythmic Tx will need PPM Reynaldo [facility] Electrophysiology:No rmal function. 0 .3% AF burden. S he would like this removed when she comes in for followup 12/2018. Reynaldo [facility] Electrophysiology:s/ p PVI 01/01/16. A F burden 0.3%. O n Eliquis for OAC. D oing well overall. S he does have intermittent spells which she describes as panic attacks that last up to 20 minutes in duration. Her ILR interrogation has shown that she has rare brief episodes of AF lasting up to 20 minutes with HRs up to 170bpm. This is likely the cause of her panic attacks. S he has had no syncope or near-syncope associated with this. Unable to tolerate antiarrhythmic therapy due to bradycardia. Will continue to observe. Reynaldo Flannery Electrophysiology Fo llow up : S /P PVI 01/01/16. A F burden ~ 0.1% d oing well overall Unable to tolerate antiarrhythmic therapy due to bradycardia. Will continue to observe. e liquis for OAC Samm Yu [employer] OIL ORDER FILLER Electrophysiology: B P today: 130/80 P rior BP: 136/80 (12/26/2016) Reynaldo Flannery Electrophysiology:S/ P PVI 01/01/16. A F burden increasing with over 30 episodes of AF RVR, almost all on 06/23/17. No symptoms or awareness of tachycardia. Tolerates well. o n Eliquis Unable to tolerate antiarrhythmic therapy due to bradycardia. Will continue to observe. Reynaldo Flannery Electrophysiology: S /P PVI 01/01/16. 0 .3% af burden o n Eliquis scheduled for sleep titration Samm Yu PRECIOUS EP - NP faxed 10-5 , lo: m arked hailey with junctional rhtyhm after first dose of Sotalol if needs antarrhythmic Tx will need PPM Reynaldo Flannery EP - NP faxed 10-5 , lo: S /P PVI 01/01/16. d oing well. 2 AF episodes since ablation o n Elidagmar Reynaldo Alma Delia GRACIA EP - NP faxed 10-5 , lo: B P today: 132/70 P rior BP: 122/78 (03/13/2016) [facility] EP:marked hailey with junctional rhtyhm after first dose of Sotalol if needs antarrhythmic Tx will need PPM Reynaldo Haakon DO EP: p rior stent. follows with [place] d iscussed with [place]. OK to DC Plavix to begin Eliquis. cont ASA Reynaldoyenny Sahacock EP:S/P PVI 01/01/16. d oing well. 2 AF episodes since ablation o n Elidagmar Flannery DO EP: B P today: 160/104 P rior BP: 160/86 (09/20/2015) w ill address while in hospital for Sotalol initiation Reynaldo Flannery DO EP:prior stent. foll ows with Amalia khoury iscussed with Amalia. OK to DC Plavix to begin Eliquis. cont ASA Reynaldo Flannery DO EP:1-2% AF on Reveal H R 140-150's s x's of throat burning CHADS =3 W ILL admit for initation fof Sotalol. D C Plavix, begin Eliquis. needs sleep study Reynaldo Flannery DO EP:prior SC with stent, good LVF Reynaldo Flannery DO EP:ONLY SINgle episo de documented on Cardionet monitor, and pt unsure if she has ever had prior events. C [id number] =3 s uggest Reveal monitor to quanitate AF burden, with NOAC after monitor implanted. discuss with Dr Holland whether to DC ASA or Plavix when starting NOAC. no antiarhythmic Rx or ablation until AF burden better quantitated. Reynaldo Flannery DO Date Name Complete Echo BASIC METABOLIC PANE L W/EGFR Complete Echo B TYPE NATRIURETIC P EPTIDE (BNP) B TYPE NATRIURETIC P EPTIDE (BNP) BASIC METABOLIC PANE L W/EGFR BASIC METABOLIC PANE L W/EGFR B TYPE NATRIURETIC P EPTIDE (BNP) Complete Echo COMPREHENSIVE METABO LIC PANEL, W/EGFR CBC (INCLUDES DIFF/P LT) B TYPE NATRIURETIC P EPTIDE (BNP) CMP w/eGFR CBC BASIC METABOLIC PANE L W/EGFR BASIC METABOLIC PANE L W/EGFR B TYPE NATRIURETIC P EPTIDE (BNP) COMPREHENSIVE METABO LIC PANEL, W/EGFR Complete Echo THYROID PANEL WITH T SH, 3RD GENERATION COMPREHENSIVE METABO LIC PANEL, W/EGFR LIPID PANEL URINALYSIS, COMPLETE W/REFLEX TO CULTURE PROTHROMBIN TIME WIT H INR CBC (INCLUDES DIFF/P LT) BASIC METABOLIC PANE L W/EGFR Sleep Study Home HISTORY OF PROCEDURES Procedure Date Procedure Name Provider Procedure Notes S tatus EKG Camron tate MD completed EKG Reynaldo Haakon DO completed EKG Reynaldo Haakon DO completed EKG Reynaldo Haakon DO completed EKG Reynaldo Haakon DO completed EKG Reynaldo Haakon DO completed ICM Interrogation, Remote (Prof) Reynaldo Haakon DO INTERROGATION EVAL REMOTE </30 D CV MNTR SYS completed ICM Interrogation, Remote (Tech) Reynaldo Haakon DO INTERROGATION EVAL REMOTE </30 D TECH REVIEW completed ICM Interrogation, Remote (Prof) Reynaldo Haakon DO INTERROGATION EVAL REMOTE </30 D CV MNTR SYS completed ICM Interrogation, Remote (Tech) Reynaldo Haakon DO INTERROGATION EVAL REMOTE </30 D TECH REVIEW completed EKG Reynaldo Haakon DO completed ICM Interrogation, Remote (Prof) Reynaldo Haakon DO INTERROGATION EVAL REMOTE </30 D CV MNTR SYS completed ICM Interrogation, Remote (Tech) Reynaldo Haakon DO INTERROGATION EVAL REMOTE </30 D TECH REVIEW completed EKG Reynaldo Haakon DO completed EKG Reynaldo Haakon DO completed Loop Recorder Interrogation, Remote Reynaldo Haakon DO INTERROGATION EVALUATION REMOTE </30 D ILR SYS completed ICM Interrogation, Remote (Tech) Reynaldo Haakon DO INTERROGATION EVAL REMOTE </30 D TECH REVIEW completed Pacemaker Interrogation, Remote (Tech) Reynaldo Haakon DO INTERROGATION REMOTE </90 D DISASSEMBLER REVIEW completed Pacemaker Interrogation, Remote (Prof) Reynaldo Haakon DO INTERROGATION EVAL REMOTE </90 D 1/2/CLINICAL THERAPIST LEAD P completed Schedule Followup Reynaldo Glascoc k DO in 6 mo completed EKG Reynaldo Haakon DO completed Loop Recorder Interrogation, Remote Reynaldo Haakon DO INTERROGATION EVALUATION REMOTE </30 D ILR SYS completed ICM Interrogation, Remote (Tech) Reynaldo Haakon DO INTERROGATION EVAL REMOTE </30 D TECH REVIEW completed Loop Recorder Interrogation, Remote Reynaldo Haakon DO INTERROGATION EVALUATION REMOTE </30 D ILR SYS completed ICM Interrogation, Remote (Tech) Reynaldo Haakon DO INTERROGATION EVAL REMOTE </30 D TECH REVIEW completed Loop Recorder Interrogation, Remote Reynaldo Haakon DO INTERROGATION EVALUATION REMOTE </30 D ILR SYS completed ICM Interrogation, Remote (Tech) Reynaldo Haakon DO INTERROGATION EVAL REMOTE </30 D TECH REVIEW completed Loop Recorder Interrogation, Remote Reynaldo Haakon DO INTERROGATION EVALUATION REMOTE </30 D ILR SYS completed ICM Interrogation, Remote (Tech) Reynaldo Haakon DO INTERROGATION EVAL REMOTE </30 D TECH REVIEW completed Loop Recorder Interrogation, Remote Reynaldo Haakon DO INTERROGATION EVALUATION REMOTE </30 D ILR SYS completed ICM Interrogation, Remote (Tech) Reynaldo Haakon DO INTERROGATION EVAL REMOTE </30 D TECH REVIEW completed Schedule Followup Reynaldo Glascoc k DO completed EKG Reynaldo Haakon DO completed Loop Recorder Interrogation, Remote Reynaldo Haakon DO INTERROGATION EVALUATION REMOTE </30 D ILR SYS completed ICM Interrogation, Remote (Tech) Reynaldo Haakon DO INTERROGATION EVAL REMOTE </30 D TECH REVIEW completed Loop Recorder Interrogation, Remote Reynaldo Haakon DO INTERROGATION EVALUATION REMOTE </30 D ILR SYS completed ICM Interrogation, Remote (Tech) Reynaldo Haakon DO INTERROGATION EVAL REMOTE </30 D TECH REVIEW completed Loop Recorder Interrogation, Remote Reynaldo Haakon DO INTERROGATION EVALUATION REMOTE </30 D ILR SYS completed ICM Interrogation, Remote (Tech) Reynaldo Haakon DO INTERROGATION EVAL REMOTE </30 D TECH REVIEW completed EKG Reynaldo Haakon DO completed Loop Recorder Interrogation, Remote Reynaldo Haakon DO INTERROGATION EVALUATION REMOTE </30 D ILR SYS completed ICM Interrogation, Remote (Tech) Reynaldo Haakon DO INTERROGATION EVAL REMOTE </30 D TECH REVIEW completed Loop Recorder Interrogation, Remote Reynaldo Haakon DO INTERROGATION EVALUATION REMOTE </30 D ILR SYS completed ICM Interrogation, Remote (Tech) Reynaldo Haakon DO INTERROGATION EVAL REMOTE </30 D TECH REVIEW completed Loop Recorder Interrogation, Remote Reynaldo Haakon DO INTERROGATION EVALUATION REMOTE </30 D ILR SYS completed ICM Interrogation, Remote (Tech) Reynaldo Haakon DO INTERROGATION EVAL REMOTE </30 D TECH REVIEW completed Loop Recorder Interrogation, Remote Reynaldo Haakon DO INTERROGATION EVALUATION REMOTE </30 D ILR SYS completed ICM Interrogation, Remote (Tech) Reynaldo Haakon DO INTERROGATION EVAL REMOTE </30 D TECH REVIEW completed Loop Recorder Interrogation, Remote Reynaldo Haakon DO INTERROGATION EVALUATION REMOTE </30 D ILR SYS completed ICM Interrogation, Remote (Tech) Reynaldo Haakon DO INTERROGATION EVAL REMOTE </30 D TECH REVIEW completed Loop Recorder Interrogation, Remote Reynaldo Haakon DO INTERROGATION EVALUATION REMOTE </30 D ILR SYS completed ICM Interrogation, Remote (Tech) Reynaldo Haakon DO INTERROGATION EVAL REMOTE </30 D TECH REVIEW completed Loop Recorder Interrogation, Remote Reynaldo Haakon DO INTERROGATION EVALUATION REMOTE </30 D ILR SYS completed ICM Interrogation, Remote (Tech) Reynaldo Haakon DO INTERROGATION EVAL REMOTE </30 D TECH REVIEW completed Schedule Followup Reynaldo Glascoc k DO completed EKG Reynaldo Haakon DO completed SNOMED-CT: [id number] Current Medications Documented Reynaldo Haakon DO completed Loop Recorder Interrogation, Remote Reynaldo Haakon DO INTERROGATION EVALUATION REMOTE </30 D ILR SYS completed ICM Interrogation, Remote (Tech) Reynaldo Haakon DO INTERROGATION EVAL REMOTE </30 D TECH REVIEW completed Loop Recorder Interrogation, Remote Reynaldo Haakon DO INTERROGATION EVALUATION REMOTE </30 D ILR SYS completed ICM Interrogation, Remote (Tech) Reynaldo Haakon DO INTERROGATION EVAL REMOTE </30 D TECH REVIEW completed Loop Recorder Interrogation, Remote Reynaldo Haakon DO INTERROGATION EVALUATION REMOTE </30 D ILR SYS completed ICM Interrogation, Remote (Tech) Reynaldo Haakon DO INTERROGATION EVAL REMOTE </30 D TECH REVIEW completed Schedule Followup Reynaldo Glascoc k DO in two months completed EKG Reynaldo Haakon DO completed SNOMED-CT: [id number] Current Medications Documented Reynaldo Haakon DO completed Loop Recorder Interrogation, Remote Reynaldo Haakon DO INTERROGATION EVALUATION REMOTE </30 D ILR SYS completed ICM Interrogation, Remote (Tech) Reynaldo Haakon DO INTERROGATION EVAL REMOTE </30 D TECH REVIEW completed Loop Recorder Interrogation, Remote Reynaldo Haakon DO INTERROGATION EVALUATION REMOTE </30 D ILR SYS completed ICM Interrogation, Remote (Tech) Reynaldo Haakon DO INTERROGATION EVAL REMOTE </30 D TECH REVIEW completed Loop Recorder Interrogation, Remote Reynaldo Haakon DO INTERROGATION EVALUATION REMOTE </30 D ILR SYS completed ICM Interrogation, Remote (Tech) Reynaldo Haakon DO INTERROGATION EVAL REMOTE </30 D TECH REVIEW completed Loop Recorder Interrogation, Remote Reynaldo Haakon DO INTERROGATION EVALUATION REMOTE </30 D ILR SYS completed ICM Interrogation, Remote (Tech) Reynaldo Haakon DO INTERROGATION EVAL REMOTE </30 D TECH REVIEW completed Loop Recorder Interrogation, Remote Reynaldo Haakon DO INTERROGATION EVALUATION REMOTE </30 D ILR SYS completed ICM Interrogation, Remote (Tech) Reynaldo Haakon DO INTERROGATION EVAL REMOTE </30 D TECH REVIEW completed Loop Recorder Interrogation, Remote Reynaldo Haakon DO INTERROGATION EVALUATION REMOTE </30 D ILR SYS completed ICM Interrogation, Remote (Tech) Reynaldo Haakon DO INTERROGATION EVAL REMOTE </30 D TECH REVIEW completed EKG Reynaldo Haakon DO completed SNOMED-CT: [id number] Current Medications Documented Reynaldo Haakon DO completed Loop Recorder Interrogation, Remote Reynaldo Haakon DO INTERROGATION EVALUATION REMOTE </30 D ILR SYS completed ICM Interrogation, Remote (Tech) Reynaldo Haakon DO INTERROGATION EVAL REMOTE </30 D TECH REVIEW completed Loop Recorder Interrogation, Remote Reynaldo Haakon DO INTERROGATION EVALUATION REMOTE </30 D ILR SYS completed ICM Interrogation, Remote (Tech) Reynaldo Haakon DO INTERROGATION EVAL REMOTE </30 D TECH REVIEW completed SNOMED-CT: [id number] Current Medications Documented Reynaldo Haakon DO completed EKG Reynaldo Haakon DO completed Loop Recorder Interrogation, Remote Reynaldo Haakon DO INTERROGATION EVALUATION REMOTE </30 D ILR SYS completed ICM Interrogation, Remote (Tech) Reynaldo Haakon DO INTERROGATION EVAL REMOTE </30 D TECH REVIEW completed Loop Recorder Interrogation, Remote Reynaldo Haakon DO INTERROGATION EVALUATION REMOTE </30 D ILR SYS completed ICM Interrogation, Remote (Tech) Reynaldo Flannery DO INTERROGATION EVAL REMOTE </30 D TECH REVIEW completed SNOMED-CT: [id number] Current Medications Documented Reynaldo Flannery DO completed EKG Reynaldo Flannery DO completed
--- OUTSIDE RECORDS SUMMARY | 2024-04-11 06:34 | XMS_ITS | Encounter Summary ---
Author Organization [facility] Healthcare Address [address] [place] [address] Care Team Providers Care Corporate Development Associate Name Role Phone Reynaldo Flannery DO Unavailable [phone] Guanakito Holland MD Unavailable [phone] Jaleel Mcogvern MD Primary Care Provider [phone] Encounter Details Date Type Department Care Team (Late st Contact Info) Description 09/12/2023 Telephone [facility] Cardiology [address] [id number] Mannie Hernandez MD [address] [facility] [address] [facility] [address] [place] [address] Social History Tobacco Use Types Packs/Day Years Used Date Smoking Tobacco: Former Cigarettes Q uit: 1975 Smokeless Tobacco: Never Alcohol Use Standard Drinks/Week Comments No 0 (1 standard drink = 0.6 oz pur e alcohol) OASIS D0700: Social Isolation Answer Da te Recorded Frequency of experiencing loneliness or isolatio n Never 10/24/2022 OASIS A1250: Transportation Answer Date Recorded Lack of Transportation (Medical) No 10/24/2022 Lack of Transportation (Non-Medical) No 10/24/2022 Patient Unable or Declines to Respond No 10/24/2022 OASIS B1300: Health Literacy Answer Kenrick e Recorded Frequency of needing help to read materials from doctor or pharmacy Never 10/24/2022 Social Connection and Isolation Panel [NHANES] A nswer Date Recorded In a typical week, how many times do you talk on the phone with family, friends, or neighbors? Three times a week 08/12/2022 How often do you get togethe r with friends or relatives? Once a week 08/12/2022 Attends [employer] Not on file 08/12 Active Member of Clubs or Organizations Not on f ile 08/12/2022 Attends Club or Organization Meetings Not on anthony e 08/12/2022 Are you , , di vorced, , never , or living with a partner? 08/12/2022 AUDIT-C Answer Date Recorded Q1: How often do you have a drink containing alcohol? Never 08/12/2022 Q2: How many drinks containi ng alcohol do you have on a typical day when you are drinking? Patient does not drink Q3: How often do you have si x or more drinks on one occasion? Never 08/12/2022 Overall Financial Resource Strain (CARDIA) Answe r Date Recorded How hard is it for you to pa y for the very basics like food, housing, medical care, and heating? Not very hard 08/12/2022 PHQ-2 Answer Date Recorded Patient Health Questionnaire-2 Score 0 08/23/2022 [facility] [place] of Occupat ional Health - Occupational Stress Questionnaire Answer Date Recorded Do you feel stress - tense, restless, nervous, or anxious, or unable to sleep at night because your mind is troubled all the time - these days? Not at all 08/12/2022 Hunger Vital Sign Answer Date Recorded Within the past 12 months, y ou worried that your food would run out before you got the money to buy more. Never true 08/13/19 23 Within the past 12 months, t he food you bought just didn't last and you didn't have money to get more. Never true 08/12/2022 PRAPARE - Transportation Answer Date Re corded In the past 12 months, has l ack of transportation kept you from medical appointments or from getting medications? No 04/2022 In the past 12 months, has l ack of transportation kept you from meetings, work, or from getting things needed for daily living? No 08/23/2022 Housing Stability Vital Sign Answer Kenrick e Recorded In the last 12 months, was t here a time when you were not able to pay the mortgage or rent on time? No 08/12/2022 In the last 12 months, how many places have you lived? 1 08/12/2022 In the last 12 months, was t here a time when you did not have a steady place to sleep or slept in a [facility] (including now)? No 08/12/2022 Personal Safety Answer Date Recorded Have you ever been in or are you currently in a harmful physical or emotional relationship or is someone making you feel afraid or unsafe? 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 * Telephone Encounter - Tabatha Srinivasan MA - 09/12/2023 2:26 PM CDT noted * Telephone Encounter - Savannah Quijano RN - 09/12/2023 1:57 PM CDT See below * Telephone Encounter - Tisha Garnica - 09/12/2023 1:40 PM CDT Pt daughter calling to report pts device is plugged in where is usually is although is not working at all. Pt daughter requesting a call back in regard to further discussing. Contact:[phone] documented in this encounter Plan of Treatment Not on file documented as of this encounter Visit Diagnoses Not on filedocumented in this encounter Care Teams Corporate Development Associate Relationship Specialty Start Date End Date Jaleel Mcgovern MD PCP - General Family Practice 07/18/22 Reynaldo Flannery DO Consulting Physician Cardiology 09/26/17 Guanakito Holland MD Consulting Physician Cardiovascular Disease 07/29/18 documented as of this encounter
--- OUTSIDE RECORDS SUMMARY | 2024-04-11 06:34 | XMS_ITS | Encounter Summary ---
Author Organization [facility] Healthcare Address [address] [place] [address] Care Team Providers Care Workers Compensation Coordinator Name Role Phone Reynaldo Flannery DO Unavailable [phone] Guanakito Holland MD Unavailable [phone] Jaleel Mcgovern MD Primary Care Provider [phone] Encounter Details Date Type Department Care Team (Late st Contact Info) Description 07/22/2023 Telephone [facility] Medical Group Cardiology [address] [place] [phone] Mannie Hernandez MD [address] [address] Social History Tobacco Use Types Packs/Day [...] or relatives? Once a week 08/12/2022 Attends [employer] Not on file 08/12 Active Member [...] Recorded Patient Health Questionnaire-2 Score 0 08/23/2022 [facility] of Occupat ional Health - Occupational Stress [...] place to sleep or slept in a fci (including now)? No 08/12/2022 Personal Safety Answer Date Recorded Have you ever been in or are you currently in a harmful physical or emotional relationship or is someone making you feel afraid or unsafe? 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 Gender Identity Female 10/09/2022 9:08 AM CDT Sexual Orientation Choose not to disclose 2022 9:08 AM CDT documented as of this encounter Miscellaneous Notes * Telephone Encounter - Tabatha Srinivasan MA - 09/12/2023 12:27 PM CDT Pt monitor still Dc'd called again to inform pt but had to LMOR-detailed message left * Telephone Encounter - Tabatha Srinivasan MA - 07/22/2023 10:32 AM CDT Called pt to discuss upcoming appt's 10-22-23 for device check and 10-23-23 [place] appt LMOR requesting a return call documented in this encounter Plan of Treatment Not on file documented as of this encounter Visit Diagnoses Not on filedocumented in this encounter Care Teams Workers Compensation Coordinator Relationship Specialty Start Date End Date Jaleel Mcgovern MD PCP - General Family Practice 07/18/22 Reynaldo Flannery DO Consulting Physician Cardiology 09/26/17 Guanakito Holland MD Consulting Physician Cardiovascular Disease 07/29/18 documented as of this encounter
--- OUTSIDE RECORDS SUMMARY | 2024-04-11 06:34 | XMS_ITS | Clinical Summary ---
Author Organization [facility] Address [address] [place] [address] Care Team Providers Care Correspondence Dictator Name Role Phone Reynaldo Flannery DO Unavailable Guanakito Holland MD Unavailable [phone] Jaleel Mcgovern MD Primary Care Provider [phone] Allergies Active Allergy Reactions Criticality Noted Date Comments Amiodarone Stomach upset Low 08/29/2022 Loss of appetite Hard time focusing Headaches Beta-Blockers (Beta-Adrenergic Blocking Agts) Other (See comments) Low 07/29/2018 severe heart pain Codeine Rash,Vomiting,Halluc julianne tions,Nausea only Low 09/19/2015 Reaction: Rash, ??, Reaction: rash, ??throw up, ??hallucinate, ??, , Reaction: Nausea, ??Vomiting, ?? Other reaction(s): N/V, rash Diltiazem Itching Low 09/25/2017 Lisinopril Anxiety,Other (See comments) Reaction: panic attack, nerves on edge., Morphine Rash,Nausea only,Vomiting Medium 09/19/2015 Reaction: Rash, , , Reaction: Nausea, Vomiting, Penicillins Rash,Vomiting Reaction: Rash, , Reaction: throw up, rash, , , Reaction: Rash, Phenobarbital Hallucinations Medium Sotalol Unknown Medications cholecalciferol (VITAMIN D-3) 2,000 unit tabletIndications :Prevention of Vitamin D Deficiency take 1 tablet by oral route every day 90 3 6 Active cyanocobalamin (Vitamin B-12) 100 mcg tabletIndications :Prevention of Vitamin B12 Deficiency Take 10 tablets (1,000 mcg total) by mouth daily Active aspirin 81 mg chewable tabletIndications :prevention of thrombosis Take 1 tablet (81 mg total) by mouth daily 90 tablet 3 02/13/20 25 Active spironolactone (ALDACTONE) 25 mg tabletIndications :hypertension Take 0.5 tablets (12.5 mg total) by mouth daily 45 tablet 3 02/13/20 25 Active fluticasone propionate (FLONASE) 50 mcg/actuation nasal sprayIndications: allergies Administer 1 spray into each nostril daily as needed for allergies Active fexofenadine (WALESKA) 180 mg tabletIndications :allergies Take 1 tablet (180 mg total) by mouth daily as needed (allergies) Active Ventolin HFA 90 mcg/actuation inhaler 3 Active acetaminophen (TYLENOL) 160 mg chewable tabletIndications :Pain Take 1 tablet (160 mg total) by mouth every 6 (six) hours as needed for pain Active furosemide (LASIX) 20 mg tablet 3 Active coenzyme Q10 30 mg capsule Take 1 capsule (30 mg total) by mouth 3 (three) times a day Active dapagliflozin propanediol (FARXIGA) 10 mg tabletIndications :Heart Failure Take 1 tablet (10 mg total) by mouth daily 90 tablet 2 4 09/07/19 25 Active apixaban (ELIQUIS) 5 mg tabletIndications :atrial fibrillation Take 1 tablet (5 mg total) by mouth every 12 (twelve) hours 180 tablet 3 4 02/27/20 25 Active sacubitriL-valsar sykes (ENTRESTO) 24-26 mg tabletIndications :chronic heart failure Take 1 tablet by mouth 2 (two) times a day 180 tablet 3 4 Active Active Problems Problem Noted Date Diagnosed Date Permanent atrial fibrillation (CMS/HCC) 02/13/20 HFrEF (heart failure with re duced ejection fraction) ([facility]) 08/29/2022 Assessment & Plan (08/29/2022 9:31 PM CDT): Echocardiogram in July of 2022 noted patient have a drop in her ejection fraction from 40% to 20%. Unclear etiology at that time as it may be secondary to chronic RV pacing versus PVC burden versus underlying CAD. No ischemic evaluation pursued at that time. Euvolemic on examination today no signs or symptoms of decompensated heart failure. Continue GDMT with Farxiga, metoprolol XL and spironolactone. Of note, losartan was recently discontinued in rehab due to hypotension. Per daughter she was also intolerant to Entresto. Discussed ongoing workup for newly depressed ejection fraction. Per patient her plan is to continue close follow-up with local fraternity adviser and therefore would like to discuss with him at upcoming visit September. Continue Lasix 40 mg daily for volume management. 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 Dx; SSS, Afib. DOI 07/29/2018-Dr Holland. RA Lead replaced 09/14/18. AV Node Ablation 12/2018. Assessment & Plan (08/29/2022 9:27 PM CDT): History of coronary artery stent placement 08/28 GENNY (obstructive sleep apnea) 09/29/2018 B12 deficiency 12/23/2017 Abdominal aortic aneurysm (AAA) without rupture 06/25/2017 Assessment & Plan (08/29/2022 9:26 PM CDT): Maintain good blood pressure control. Anxiety 03/12/2017 Assessment & Plan (07/29/2018 4:49 AM CDT): Will continue with Xanax 0.5 mg t.i.d. As needed. Assessment & Plan (03/12/2017 2:39 PM AUTOMOBILE MECHANIC): Patient has Xanax for p.r.n. use. She is somewhat afraid to use this medication. She notes a positive response when she needs it. She states she is having panic attacks once to twice a month at max. She has been logging these since December. She states her anxiety/panic began after her . She has not been in for any formal counseling since his passing. [facility]. We discussed Senior renewal. She declines at the present time. She would like to continue to monitor her panic attacks and was instructed to use Xanax as previously prescribed on an as needed basis. Coronary artery disease invo lving [place] coronary artery of [place] heart 12/25/2016 Overview (04/19/2019): Status post PCI in June 2013 (RL). Normal Cardiolite in August 2014. Assessment & Plan (08/29/2022 9:25 PM CDT): Denies any chest pain or anginal equivalent. Recent drop in her LVEF to 20% from 40% with unclear etiology. Continue aspirin, metoprolol and Crestor. Would like to discuss with her local fraternity adviser about additional ischemic workup as she plans to follow up locally long-term. Chronic GERD 12/25/2016 Assessment & Plan (07/29/2018 4:49 AM CDT): Start on IV Protonix 40 mg b.i.d. Hypertension 01/28/2013 Overview (06/28/2016): Hypertension Assessment & Plan (08/29/2022 9:22 PM CDT): Blood pressure appropriately controlled. Losartan was recently stopped due to hypotension. Continue metoprolol XL and spironolactone. Assessment & Plan (07/23/2019 11:04 AM CDT): Normotensive in clinic. Cnt. Prior prescribed antihypertensives recommended to avoid OTC decongestants D/T Hx of atrial fib and HTN. Cnt. Dash, heart healthy diet and regular exercise as tolerated given Assessment & Plan (03/12/2017 2:37 PM AUTOMOBILE MECHANIC): Blood pressure is slightly elevated during office visit today. Patient states she was nervous about coming in. She was encouraged to monitor her blood pressure outside of the office. She understands it is important to satisfactorily control her blood pressure. She is to contact us with persistent elevation. Hyperlipidemia 01/28/2013 Overview (04/19/2019): LDL of 142 mg/dL on 09 December 2017. Needs PCSK9 inhibitor. Assessment & Plan (08/29/2022 9:24 PM CDT): On Crestor 10 mg per reports history of intolerance to statin therapy. Her LDL goal is less than 70. Will discuss local fraternity adviser about statin therapy and possible PCSK9 inhibitor. Assessment & Plan (07/29/2018 4:47 AM CDT): Not on statin Osteoarthritis 01/20/2013 Overview (06/27/2016): Osteoarthritis Resolved Problems Problem Noted Date Diagnosed Date Resolved Date Chest pain 09/29/2018 12/24/2018 Hypertensive urgency 09/29/2018 019 Anxiety 09/29/2018 12/24/2018 Sick sinus syndrome ([facility]/HCC) 09/14/2018 02/13/2024 Overview (04/19/2019): Status post Biotronik Edora 8 DRT on 29 Jul 2018 (RL). New atrial lead on 14 September 2018 (DG). Diarrhea of infectious origin 07/29/2018 12/24/2018 NSTEMI (non-ST elevated myoc ardial infarction) (CMS/HCC) 07/29/2018 02/01/2020 Assessment & Plan (07/29/2018 4:52 AM CDT): Patient currently in AFib with RVR. Suspect elevated troponins are due to demand ischemia. Will continue on telemetry monitoring Trend troponins Repeat EKG in a.m. Cardiology consult Keep the patient NPO Patient currently on Eliquis oral anticoagulation Patient denies any chest pain Atrial fibrillation with rap id ventricular response ([facility]) 09/25/2017 02/01/2020 Assessment & Plan (07/29/2018 4:51 AM CDT): Continue with amiodarone drip. Patient completed a dose of digoxin. Cardiology consult in a.m. Will obtain echo cardiac in a.m. Telemetry monitoring Restart Eliquis Cough 03/12/2017 06/24/2017 Assessment & Plan (03/12/2017 2:39 PM AUTOMOBILE MECHANIC): Influenza A negative influenza B negative. Sore throat 03/12/2017 06/24/2017 Assessment & Plan (03/12/2017 2:39 PM AUTOMOBILE MECHANIC): Rapid strep negative. Viral URI with cough 03/12/2017 018 Assessment & Plan (03/12/2017 2:40 PM AUTOMOBILE MECHANIC): Humidification, fluids, and rest were recommended. Patient may take Tylenol or ibuprofen as needed for fever, chills, and body aches. We discussed symptoms of, duration of, and treatment of viral illness. Symptom should run their course within 5-7 days. Patient has been encouraged to contact the office for follow-up with any change in, worsening, or non improvement in her condition. We discussed signs and symptoms of secondary infection and what would warrant antibiotic course. She was given a prescription azithromycin to take her should the symptoms present themselves. She has tolerated azithromycin in the past with any ill side effects. Paroxysmal atrial fibrillation ([facility]) 12/25/2016 02/13/2024 Assessment & Plan (08/29/2022 9:26 PM CDT): In normal rhythm today. Continue metoprolol and Eliquis. Assessment & Plan (07/23/2019 11:05 AM CDT): [facility] NSR today in office. Cnt. Eliquis for anticoagulation Assessment & Plan (03/12/2017 2:37 PM AUTOMOBILE MECHANIC): Patient will continue routine follow-up with Dr. Pennie pierre and local fraternity adviser as recommended. She reports compliance with her daily medication including Eliquis. Multiple-type hyperlipidemia 01/20/2013 12/25/2016 Overview (06/27/2016): MIXED HYPERLIPIDEMIA Atrial paroxysmal tachycardia 07/22/2012 12/25/2016 Overview (06/27/2016): PAROX ATRIAL TACHYCARDIA Palpitations 07/22/2012 12/25/2016 Overview (06/27/2016): PALPITATIONS Pure hypercholesterolemia 07/22/2012 Overview (06/27/2016): PURE HYPERCHOLESTEROLEM Shortness of breath 07/22/2012 12/26/19 17 Overview (06/28/2016): SHORTNESS OF BREATH Precordial pain 07/22/2012 12/25/2016 Overview (06/28/2016): PRECORDIAL PAIN Nausea in adult 12/24/2018 Encounters Date Type Department Care Team Description 03/08/2024 11:15 AM AUTOMOBILE MECHANIC Lab [facility] Outpatient Lab at [address] [phone] Hyperlipidemia (Primary Dx); Hypertension 03/08/2024 11:13 AM AUTOMOBILE MECHANIC - 03/08/2024 11:59 PM AUTOMOBILE MECHANIC Hospital Encounter [address] [address] Cardiac pacemaker in situ; HFrEF (heart failure with reduced ejection fraction) (CMS/HCC) (HCC); Permanent atrial fibrillation (CMS/HCC) ([facility]) Discharge Disposition: Discharge to home or self care 02/13/2024 11:00 AM AUTOMOBILE MECHANIC Office Visit [facility] Cardiology at [address] [place] [address] Mannie Hernandez MD Cardiac pacemaker in situ (Primary Dx); HFrEF (heart failure with reduced ejection fraction) (CMS/HCC) (HCC); Permanent atrial fibrillation (CMS/HCC) (HCC) 02/04/2024 Telephone [facility] Cardiology [address] [place] [phone] Mannie Hernandez MD Shortness of Breath; Joint Swelling 01/29/2024 Telephone [facility] Cardiology [address] [place] [phone] Lizbet Miller MA Pt assistance forms 01/28/2024 Orders Only [facility] Cardiology [address] [place] [address] [place] [phone] Mannie Hernandez MD Paroxysmal atrial fibrillation (CMS/HCC) (HCC) (Primary Dx); Sick sinus syndrome (CMS/HCC) (HCC); HFrEF (heart failure with reduced ejection fraction) (CMS/HCC) (HCC) 01/27/2024 9:30 AM AUTOMOBILE MECHANIC Ancillary Procedure [facility] Cardiology [address] [place] [address] [place] [phone] Cardiac pacemaker in situ [Z95.0] (Primary Dx); Paroxysmal atrial fibrillation (CMS/HCC) (HCC); Sick sinus syndrome (CMS/HCC) (HCC) from Last 3 Months Immunizations Name Administration Dates Next Due Influenza, Unspecified 01/31/2020(Deferr ed: Patient Refused),02/22/2019(Deferred: Patient Refused),02/15/2019(Deferred: Patient Refused - pt refused),12/22/2018(Deferred: Patient Refused),12/23/2017(Deferred: Patient Refused),12/22/2017(Deferred: Patient Refused),12/22/2017(Deferred: Patient Refused) Pneumococcal Conjugate, Unspecified 12/23/2017(D eferred: Patient Refused) Surgical History Surgery Date Site/Laterality Comments OTHER SURGICAL HISTORY 03/24/1979 - 03/23/1980 Right partial oopherectomy CHOLECYSTECTOMY 03/24/1980 - 03/23/1981 Cholecystectomy OTHER SURGICAL HISTORY heart cath with stent 2014 [place] OTHER SURGICAL HISTORY 03/24/2015 - 03/23/2016 a.fib: loop recorder implanted OTHER SURGICAL HISTORY 03/24/2015 - 03/23/2016 Atrial Fibrillation: Cardiovascular Intervention (ablation) CATARACT EXTRACTION W/ INTRAOCULAR LENS IMPLANT Bilateral CARDIAC PACEMAKER PLACEMENT ABDOMINAL SURGERY EYE SURGERY SKIN BIOPSY CATARACT EXTRACTION LASIK Medical History Medical History Date Comments Gastroesophageal reflux disease GERD Hx Other Medical Depression, wit h Anxiety Hx Other Medical DJD Adiposity obesity Hyperlipidemia Hyperlipidemia Hypertension Hypertension Hx Other Medical a.fib Hx Other Medical Atrial Fibrilla tion; Outcome: heart ablation Aortic aneurysm (HCC) Pt states found by ultrasound upper abd. History of loop recorder Vertigo Sleep apnea Depression Arthritis Dysphagia Diverticulosis Colon polyp Myocardial infarction (HCC) 2014 CHF (congestive heart failur e) (CMS/HCC) (HCC) Atrial fibrillation (CMS/HCC) (HCC) Stroke (HCC) Family History Medical History Relation Name Comments Cancer Brother 1 68 Cancer; Depression Brother 1 68 Depression; Heart disease Brother 1 68 Hypertension Brother 2 79 Hypertension; Breast cancer Child Asthma Daughter Chelle Jara COPD Father Derek COPD; Cause of : COPD Dementia Father Derek Dementia; Depression Father Derek Depression; Heart attack Father Derek Asthma Maternal Grandmother Grandma Dementia Mother Dementia; Depression Mother Depression; Other Mother Angina; Cause o f : Angina Diabetes Sister 1 [place] Heart attack Sister 1 [place] Heart disease Sister 1 [place] Other Sister 3 DM, CAD; Other Sister 4 Valve Replaceme nt; Relation Name Status Comments Brother 1 68 Brother 2 79 Child Daughter Chelle Jara Father Derek (Age 79) Maternal Grandmother Grandma Mother (Age 93) Sister 1 [place] Alive Sister 2 Alive Sister 3 Sister 4 Social History Tobacco Use Types Packs/Day Years Used Date Smoking Tobacco: Former Cigarettes Q uit: 1975 Smokeless Tobacco: Never Tobacco Cessation:Counseling Given: Not Answered Alcohol Use Standard Drinks/Week Comments No 0 [...] or relatives? Once a week 08/12/2022 Attends [employer] Services Not on file 08/12 Active Member [...] Recorded Patient Health Questionnaire-2 Score 0 08/23/2022 [facility] - Occupational Stress [...] place to sleep or slept in a correction (including now)? No 08/12/2022 Personal Safety Answer Date Recorded Have you ever been in or are you currently in a harmful physical or emotional relationship or is someone making you feel afraid or unsafe? Denies 08/12/2022 Comments No Sex and Gender Information Value Date Recorded Sex Assigned at Not on file Legal Sex Female 11:18 AM AUTOMOBILE MECHANIC Gender Identity Female 10/09/2022 9:08 AM CDT Sexual Orientation Choose not to disclose 2022 9:08 AM CDT Obstetrics History Para Term AB IAB SAB Ectopic Multiple Livin g Live Births 6 6 6 Date Outcome GA Total Labor Labor/2nd/3rd Weight Sex Type Anes PTL Sabi A1 A5 Name Clin Term Term Term Term Term Term Last Filed Vital Signs Vital Sign Reading Time Taken Comments Blood Pressure 104/60 02/13/2024 11:01 AM AUTOMOBILE MECHANIC Pulse 66 02/13/2024 11:01 AM AUTOMOBILE MECHANIC Temperature 36.4 ??C (97.6 ??F) 10/24/2022 11:50 AM C DT Respiratory Rate 18 10/24/2022 11:50 AM CDT Oxygen Saturation 98% 02/13/2024 11:01 AM AUTOMOBILE MECHANIC Inhaled Oxygen Concentration - - Weight 65.8 kg (145 lb) 02/13/2024 11:01 AM AUTOMOBILE MECHANIC Height 154.9 cm (5' 1 ) 02/13/2024 11:01 AM AUTOMOBILE MECHANIC Body Mass Index 27.4 02/13/2024 11:01 AM AUTOMOBILE MECHANIC Plan of Treatment Health Maintenance Due Date Last Done Comments DTaP/Tdap/Td Vaccine (1 - Tdap) 1951 Hepatitis B Screening 1958 Zoster Vaccine (1 of 2) 1990 Pneumococcal vaccine 65+ (1 of 1 - PCV) 2005 Osteoporosis Screening-Bone Density Scan 11/14/2016 11/14/2014, 11/06/2012 Well Visit 65+ 01/30/2021 01/31/2020, 05/2018, 06/24/2017 Breast Cancer Screening-Mammogram 04/06/2021 021, 11/06/2012 Depression Screening 08/13/2023 08/12/2022, 08/12/2022, 08/03/2022, Additional history exists Fall Risk Assessment 08/24/2023 08/23/2022, 01/31/2020, 07/23/2019, Additional history exists Influenza Vaccine (#1) 2023 Colon Cancer Screening-Colonoscopy 05/25/2024 05/26/2019, 05/25/2019, 01/06/2017 Colon Cancer Screening-CT Colonography Discontinued 05/26/2019, 05/25/2019, 01/06/2017 Colon Cancer Screening-DNA Stool Discontinued 05/26/2019, 05/25/2019, 01/16/2017, Additional history exists Colon Cancer Screening-FIT Discontinued 05/25, 05/25/2019, 01/16/2017, Additional history exists Colon Cancer Screening-Sigmoidoscopy Discontinued 05/26/2019, 05/25/2019, 01/06/2017 Medical Devices Implanted Type Area Vice President Of Recruiting Device Identifier Shelf Expiration Date Model / Serial / Lot Biotronik Inc [id number] Endocardial Pacing Lead Promri Solia Jt 45 - [id number] - [id number] Implanted:Qty: 1 on 07/29/2018 by Guanakito Holland MD at [facility] Lead Biotronik Inc 12/22/2019 [id number] / [id number] / Biotronik Inc [id number] Endocardial Pacing Lead Promri Solia T 53 - [id number] - [id number] Implanted:Qty: 1 on 07/29/2018 by Guanakito Holland MD at [facility] Lead Biotronik Inc 12/22/2019 [id number] / [id number] / Biotronik Inc [id number] Solia S 45cm Bipolar Active Fixation Lead Pacing Steroid Eluting - [id number] - [id number] Implanted:Qty: 1 on 09/14/2018 by Reynaldo Flannery DO at [facility] Lead [employer]ik Inc [id number] 05/21/2020 [id number] / [id number] / [id number] Biotronik Inc [id number] Edora Promri 27y70k3.5mm 1 Chamber Rate Adaptive Unipolar Bipolar - [id number] - [id number] Implanted:Qty: 1 on 07/29/2018 by Guanakito Holland MD at [facility] Pacemaker Biotronik Inc 11/22/2019 [id number] / [id number] / Medtronic Cardiac Rhythm Mgmt [id number] Tyrx 2.7x2.5in Medium Envelope Absorbable Polyarylate Minocycline - [id number] Implanted:Qty: 1 on 09/14/2018 by Reynaldo Flannery DO at [facility] Med[employer] Inc 10/21/2018 [id number] / / [id number] [employer] Perclose 6fr Vascular Closure 34503-10 - [id number] Implanted:Qty: 1 on 08/03/2022 at [facility] [employer] 03/23/2024 1267 3-03 / / [id number] Procedures Procedure Name Priority Date/Time Associated Diagnosis Comments EGFR Routine 03/08/2024 11:13 AM AUTOMOBILE MECHANIC Cardiac pacemaker in situ HFrEF (heart failure with reduced ejection fraction) (CMS/HCC) (HCC) Permanent atrial fibrillation (CMS/HCC) (HCC) BASIC METABOLIC PANEL Routine 03/08/2024 11:13 AM AUTOMOBILE MECHANIC Cardiac pacemaker in situ HFrEF (heart failure with reduced ejection fraction) (CMS/HCC) (HCC) Permanent atrial fibrillation (CMS/HCC) (HCC) DEVICE CHECK - REMOTE Routine 01/28/2024 11:02 AM AUTOMOBILE MECHANIC Paroxysmal atrial fibrillation (CMS/HCC) (HCC) Sick sinus syndrome (CMS/HCC) (HCC) SCREENING MAMMOGRAM BILATERAL W OSCAR Schedule Routine, Read Routine (OP Routine) 04/06/2020 1:21 PM AUTOMOBILE MECHANIC Visit for screening mammogram Essential hypertension Mixed hyperlipidemia COLONOSCOPY Routine 05/26/2019 HM DEXA SCAN Routine 11/14/2014 from Last 3 Months or Most Recently Relevant to Health Maintenance Results * eGFR (03/08/2024 11:13 AM AUTOMOBILE MECHANIC) eGFR 68 >=60 mL/min/1. 73 m2 Comment: Interpretive Data Reference Interval Normal ?>/= 90 mL/min/1.73m2 Mildly decreased* ? 60 - 89 mL/min/1.73m2 Mildly to moderately decreased ?45 - 59 mL/min/1.73m2 Moderately to severely decreased ??30 - 44 mL/min/1.73m2 Severely decreased ?15 - 29 mL/min/1.73m2 Kidney Failure ?< 15 ??mL/min/1.73m2 *Relative to young adult level Estimated glomerular filtration rate is determined by the 2020 CKD-EPI equation recommended by the National Kidney Foundation (A Unifying Approach to GFR Estimation: Recommendations of the NKF-ASK Task Force on Reassessing the Inclusion of Race in Diagnosing Kidney Disease, JASN 2020). The CKD-EPI equation should not be used for patients with unstable renal function and has not been validated in children and those over 70. Current interpretive data was last reviewed 2021. Blood 03/08/2024 11:1 3 AM AUTOMOBILE MECHANIC 03/08/2024 3:49 PM AUTOMOBILE MECHANIC us Mannie Hernandez MD LAB BLOOD ORDERABLES Fin al Result [facility] [id number] [address] Department [place] [address] * Basic metabolic panel (03/08/2024 11:13 AM AUTOMOBILE MECHANIC) Sodium 143 135 - 145 mmol/L Potassium, pl 3.5 3.3 - 4.9 mmol/L C[facility]ER Chloride 103 97 - 110 mmol/L [facility] CH CO2 30 22 - 32 mmol/L [facility] CH Anion gap 10 2 - 15 mmol/L [facility] CH BUN 12 6 - 25 mg/dL [facility] Creatinine 0.85 0.60 - 1.10 mg/dL [facility] CH Glucose 135 70 - 199 mg/dL [facility] Comment: Interpretive Data Fasting glucose >/= 126 mg/dl is diagnostic for diabetes. ?? Fasting is defined as no caloric intake for at least 8 hours. Fasting glucose between 100 mg/dl to 125 mg/dl is diagnostic of prediabetes. In a patient with classic symptoms of hyperglycemia or hyperglycemic crisis, a random glucose >/= 200 mg/dl is diagnostic for diabetes. In the absence of unequivocal hyperglycemia, results should be confirmed by repeat testing. The classification and Diagnosis of Diabetes Diabetes Care 2021; 46: S19-S40. Current interpretive data was last revised 2022. Calcium 9.3 8.5 - 10.3 mg/dL [facility] Blood 03/08/2024 11:1 3 AM AUTOMOBILE MECHANIC 03/08/2024 3:49 PM AUTOMOBILE MECHANIC Mannie Hernandez MD LAB BLOOD ORDERABLES Fin al Result [facility] [address] Department [place] [address] * DEVICE CHECK - REMOTE (01/28/2024 11:02 AM AUTOMOBILE MECHANIC) Anatomical Region Laterality Modality Other Narrative 02/05/2024 12:55 PM AUTOMOBILE MECHANIC Biotronik Dual Pacemaker. Dx; SSS, Afib. DOI 07/29/2018-Dr Holland. RA Lead replaced 09/14/18. AV Node Ablation 12/2018. Biotronik remote monitoring. Routine VVI Pacemaker Remote. Transmission attached. Battery status-Ok, 50% remaining to LEANA. Stable lead impedances, pacing and sensing thresholds. Presenting rhythm: Vpaced. STEAM CONDITIONING OPERATOR-88 %. No Ventricular arrhythmias detected. ?? Medication: Eliquis, Toprol XL. Office pacemaker f/u in 9-12 months. Biotronik remote f/u 05/04/2024. Merry Cavanaugh, RN Mannie Hernandez MD [facility] PROC EDURES Final Result * Screening Mammogram Bilateral W Oscar (04/06/2020 1:21 PM AUTOMOBILE MECHANIC) Anatomical Region Laterality Modality Breast Bilateral Mammography 04/06/2020 2:09 PM AUTOMOBILE MECHANIC Impressions 04/06/2020 3:13 PM AUTOMOBILE MECHANIC There is no mammographic evidence of malignancy. A 1 year screening mammogram is recommended. BI-RADS: 2 - Benign. The patient will be entered into a reminder system with a target due date of 1 year for her next mammogram. Electronically signed by: Micaela Jang MD Narrative 04/06/2020 3:13 PM AUTOMOBILE MECHANIC EXAMINATION: SCREENING MAMMOGRAM BILATERAL W OSCAR ORDERING HEALTHCARE PROVIDER: RYAN CASTREJON HISTORY: Routine screening mammography. COMPARISON: ??11/06/2012 TECHNIQUE: CC and MLO views of the bilateral breasts were obtained with digital technique using breast tomosynthesis with C view. Computer aided detection was utilized. FINDINGS: DENSITY: There are scattered fibroglandular elements in the bilateral breasts. BREASTS: There are benign vascular calcifications. ??There are scattered calcifications within the bilateral breasts. ??There are no suspicious masses, suspicious calcifications, or other suspicious findings in either breast. There has been no suspicious interval change. Ryan Castrejon MD IMG MAMMO PROCEDURES Final Res ult * Colonoscopy (05/26/2019) Anatomical Region Laterality Modality Other Historical Provider ENDOSCOPY PROCEDURES Roshni l Result * DEXA SCAN (11/14/2014) DEXA Scan Abnormal Comment:Osteopenia Historical Provider HEALTH MAINTENANCE Final Result from Last 3 Months or Most Recently Relevant to Health Maintenance Insurance MEDICARE [facility] MEDICARE [facility] BLUE CROSS MEDICARE SUPPLEMENT MEDICARE BLUE CROSS MEDICARE SUPPLEMENT MEDICARE [facility] Advance Directives For more information, please contact: [phone] * LIMITED - No CPR (Latest Code Status on File) Date Activated Date Inactivated Comments 08/12/2022 12:22 PM 08/23/2022 4:33 PM * Full Code Date Activated Date Inactivated Comments 08/12/2022 12:21 PM 08/12/2022 12:22 PM * LIMITED - No CPR Date Activated Date Inactivated Comments 08/04/2022 12:26 AM 08/12/2022 12:17 PM * Full Code Date Activated Date Inactivated Comments 08/03/2022 7:20 PM 08/04/2022 12:26 AM * Full Code Date Activated Date Inactivated Comments 10/19/2019 11:36 AM 10/19/2019 7:30 PM Care Teams Correspondence Dictator Relationship Specialty Start Date End Date Jaleel Mcgovern MD PCP - General Family Practice 07/18/22 Reynaldo Flannery DO Consulting Physician Cardiology 09/26/17 Guanakito Holland MD Consulting Physician Cardiovascular Disease 07/29/18
--- OUTSIDE RECORDS SUMMARY | 2024-04-11 06:34 | XMS_ITS | Encounter Summary ---
Author Organization [facility] Healthcare Address [address] [place] [address] Care Team Providers Care Claims Director Name Role Phone Reynaldo Flannery DO Unavailable [phone] Guanakito Holland MD Unavailable [phone] Jaleel Peterson MD Primary Care Provider [phone] Reason for Visit * Reason Comments Edema Shortness of Breath Encounter Details Date Type Department Care Team (Late st Contact Info) Description 02/13/2024 11:00 AM COUNTERINTELLIGENCE/HUMINT SPECIALIST Office Visit [facility] Cardiology at [address] [place] [address] Mannie Hernandez MD [address] [facility] [address] [place] [address] Cardiac pacemaker in situ (Primary Dx); HFrEF (heart failure with reduced ejection fraction) (CMS/HCC) (HCC); Permanent atrial fibrillation (CMS/HCC) (HCC) Social History Tobacco Use Types Packs/Day Years [...] or relatives? Once a week 08/12/2022 Attends Taoist Services Not on file 08/12 Active Member [...] Recorded Patient Health Questionnaire-2 Score 0 08/23/2022 [facility] [place] of Occupat ional Health - Occupational Stress [...] place to sleep or slept in a nursing home (including now)? No 08/12/2022 Personal Safety Answer Date Recorded Have you ever been in or are you currently in a harmful physical or emotional relationship or is someone making you feel afraid or unsafe? Denies 08/12/2022 Comments No Sex and Gender Information Value Date Recorded Sex Assigned at Not on file Legal Sex Female 11:18 AM COUNTERINTELLIGENCE/HUMINT SPECIALIST Gender Identity Female 10/09/2022 9:08 AM CDT Sexual Orientation Choose not to disclose 2022 9:08 AM CDT documented as of this encounter Last Filed Vital Signs Vital Sign Reading Time Taken Comments Blood Pressure 104/60 02/13/2024 11:01 AM COUNTERINTELLIGENCE/HUMINT SPECIALIST Pulse 66 02/13/2024 11:01 AM COUNTERINTELLIGENCE/HUMINT SPECIALIST Temperature - - Respiratory Rate - - Oxygen Saturation 98% 02/13/2024 11:01 AM COUNTERINTELLIGENCE/HUMINT SPECIALIST Inhaled Oxygen Concentration - - Weight 65.8 kg (145 lb) 02/13/2024 11:01 AM COUNTERINTELLIGENCE/HUMINT SPECIALIST Height 154.9 cm (5' 1 ) 02/13/2024 11:01 AM COUNTERINTELLIGENCE/HUMINT SPECIALIST Body Mass Index 27.4 02/13/2024 11:01 AM COUNTERINTELLIGENCE/HUMINT SPECIALIST documented in this encounter Ordered Prescriptions Prescription Sig Dispense Quantity Refills Last Filled Start Date End Date sacubitriL-valsart an (ENTRESTO) 24-26 mg tabletIndications: chronic heart failure Take 1 tablet by mouth 2 (two) times a day 60 tablet 2 02/13/2024 03/03/2024 documented in this encounter Progress Notes * Mannie Hernandez MD - 02/13/2024 11:00 AM CST [facility]LLOW [facility] 02/13/2024 Abena Giron is a 83 y.o. female who presents for follow up of coronary artery disease, previousinfarction, atrial fibrillation and previously implanted pacemaker device. This is a patient who was seen by me in consultation in 2021 when she transferred her care from her previous medical file clerk our practice. Her history dates back to 2014 when she sustained a myocardial infarction and underwent percutaneous revascularization up in [place]. 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 She received implantation of permanent pacemaker device and according to the previous notes an AV node ablation as well. Subsequently her pacemaker checks demonstrate 100% AF burden with ventricular pacing. She is anticoagulated with apixaban. Patient has significantly high LDL cholesterol but has been clear/adamant in her refusal to take any anti-lipid medication. In July of 2022 she was hospitalized with acute ischemic stroke. She was taken to [facility] where s he was found to have an acutely closed left middle cerebral artery. She was treated with TNK and mechanical thrombectomy. The cardiology service was consulted at [facility] because of her low ejection fraction. She was placed on medical therapy for this including metoprolol succinate and losartan. Following that she was discharged to a rehab facility where the losartan was stopped because of hypotension. Because of the fact that she is in chronic atrial fibrillation her pacemaker programming was changed to VVI/CLS mode as there was no reason to be sensing her AF. She is being seen in the office today earlier than her scheduled appointment because of difficulty with dyspnea and lower extremity edema. There has been some phone calls from her family with recommendations to temporarily increase her furosemide dosage. The patient states that these symptoms beganto worsen about 2 months ago with increasing lower extremity edema and shortness of breath with modest activity. Had a long discussion with the patient and her daughter in the room about management options at this time. Her blood pressure is still soft in the office today he has no symptoms of hypotension. REVIEW OF SYSTEMS General ROS: negative for - chills, fatigue, fever, malaise, night sweats, weight gain or weight loss Psychological ROS: negative for - anxiety, depression, memory difficulties or sleep disturbances Ophthalmic ROS: negative for - blurry vision, decreased vision, loss of vision or scotomata ENT ROS: negative for - epistaxis, headaches, hearing change, nasal congestion, nasal discharge, sore throat, vertigo or visual changes Hematological and Lymphatic ROS: negative for - bleeding problems, blood clots, bruising, fatigue or weight loss Endocrine ROS: negative for - hot flashes, palpitations, polydipsia/polyuria or unexpected weight changes Respiratory ROS: negative for - cough, hemoptysis, orthopnea, shortness of breath, tachypnea or wheezing Cardiovascular ROS: negative for - chest pain, dyspnea on exertion, edema, irregular heartbeat, loss of consciousness, murmur, orthopnea, palpitations, paroxysmal nocturnal dyspnea, rapid heart rate or shortness of breath Gastrointestinal ROS: negative for - abdominal pain, appetite loss, blood in stools, constipation, diarrhea, gas/bloating, heartburn, hematemesis, melena or nausea/vomiting Genito-Urinary ROS: negative for - dysuria, or hematuria Musculoskeletal ROS: negative for - joint pain, muscle pain or muscular weakness Dermatological ROS: negative for dry skin, eczema, pruritus and rash HOME MEDICATIONS Current Outpatient Medications: acetaminophen (TYLENOL) 160 mg chewable tablet, Take 1 tablet (160 mg total) by mouth every 6 (six)hours as needed for pain, Disp: , Rfl: apixaban (ELIQUIS) 5 mg tablet, Take 1 tablet (5 mg total) by mouth every 12 (twelve) hours, Disp: 180 tablet, Rfl: 3 aspirin 81 mg chewable tablet, Take 1 tablet (81 mg total) by mouth daily, Disp: 90 tablet, Rfl: 0 cholecalciferol (VITAMIN D-3) 2,000 unit tablet, take 1 tablet by oral route every day, Disp: 90, Rfl: 3 coenzyme Q10 30 mg capsule, Take 1 capsule (30 mg total) by mouth 3 (three) times a day, Disp: , Rfl: cyanocobalamin (Vitamin B-12) 100 mcg tablet, Take 10 tablets (1,000 mcg total) by mouth daily, Disp: , Rfl: dapagliflozin propanediol (FARXIGA) 10 mg tablet, Take 1 tablet (10 mg total) by mouth daily, Disp:90 tablet, Rfl: 2 fexofenadine (WALESKA) 180 mg tablet, Take 1 tablet (180 mg total) by mouth daily as needed (allergies), Disp: , Rfl: fluticasone propionate (FLONASE) 50 mcg/actuation nasal spray, Administer 1 spray into each nostrildaily as needed for allergies, Disp: , Rfl: furosemide (LASIX) 20 mg tablet, , Disp: , Rfl: metoprolol XL (TOPROL-XL) 25 mg extended release tablet, Take 0.5 tablets (12.5 mg total) by mouth daily, Disp: 45 tablet, Rfl: 0 spironolactone (ALDACTONE) 25 mg tablet, Take 0.5 tablets (12.5 mg total) by mouth daily, Disp: 45 tablet, Rfl: 0 Ventolin HFA 90 mcg/actuation inhaler, , Disp: , Rfl: LABS AND OTHER DIAGNOSTIC TESTS Lab Results Component Value Date CHOL 146 08/03/2022 CHOL 278 (H) 12/17/2018 CHOL 169 07/29/2018 Lab Results Component Value Date HDL 33 (L) 08/03/2022 HDL 47 (L) 12/17/2018 HDL 32 (L) 07/29/2018 Lab Results Component Value Date LDLCALC 98 08/03/2022 LDLCALC 106 07/29/2018 LDLCALC 185 (H) 11/26/2016 Lab Results Component Value Date TRIG 77 08/03/2022 TRIG 172 (H) 12/17/2018 TRIG 154 (H) 07/29/2018 Lab Results Component Value Date CHOLHDL 4 08/03/2022 CHOLHDL 5.9 (H) 12/17/2018 CHOLHDL 5 07/29/2018 Lab Results Component Value Date WBC 9.6 08/19/2022 HGB 12.7 08/19/2022 HCT 40.4 08/19/2022 MCV 97.1 (H) 08/19/2022 No lab exists for component: LABALBU PHYSICAL EXAM Vitals BP 104/60 (BP Location: Left arm, Patient Position: Sitting) Pulse 66 Ht 154.9 cm (5' 1 ) Wt 65.8 kg (145 lb) LMP (LMP Unknown) SpO2 98% BMI 27.40 kg/m?? Physical Examination: General appearance - alert, well appearing, and in no distress, oriented to person, place, and time and acyanotic, in no respiratory distress Mental status - affect appropriate to mood Eyes - extraocular eye movements intact, sclera anicteric, no pallor Ears - external earsappear normal, hearing grossly normal bilaterally Nose - normal and patent, no erythema or discharge Mouth - mucous membranes moist, pharynx appears normal, dental hygiene good and tongue normal Neck - supple, no significant neck masses, carotids upstroke normal bilaterally, no bruits, no JVD Chest - clear to auscultation, no wheezes, rales or rhonchi, symmetric air entry, no tachypnea, retractions or cyanosis Heart - normal rate, regular rhythm, normal S1, S2, no murmurs, rubs, clicks or gallops, no JVD Abdomen - soft, nontender, nondistended, no masses or organomegaly bowel sounds normal Neurological - alert, oriented, normal speech, no focal findings or movement disorder noted Musculoskeletal - no joint tenderness, deformity or swelling, no muscular tenderness noted Extremities - peripheral pulses normal, moderate bipedal edema no clubbing or cyanosis Skin - normal coloration and turgor, no rashes, no suspicious skin lesions noted ASSESSMENT Abena was seen today for edema and shortness of breath. Diagnoses and all orders for this visit: Cardiac pacemaker in situ HFrEF (heart failure with reduced ejection fraction) ([facility]) ([facility]) Permanent atrial fibrillation ([facility]) ([facility]) PLAN/RECOMMENDATIONS Will try discontinuing metoprolol and starting low-dose Entresto had a long discussion with the patient and her daughter about the potential for lightheadedness etc. with lower blood pressure she needs to try her best to tolerate this as we are running out of options in terms of treating her volume overload. We will stop the beta-blair since obviously she has had an AV node ablation and the beta-blair will not be necessary for any rate control issues. My hope of course is that she will derive more hemodynamic benefit from Entresto. Basic metabolic profile in 2 weeks Follow-up in 2 months Mannie Hernandez MD TERINTELLIGENCE/HUMINT SPECIALIST documented in this encounter Miscellaneous Notes * Addendum Note - Anthony Peterson - 02/13/2024 11:00 AM CSTAddended by: ANTHONY PETERSON on: 03/08/2024 11:13 AM Modules accepted: Orders TERINTELLIGENCE/HUMINT SPECIALIST documented in this encounter Plan of Treatment Not on file documented as of this encounter Results * Basic metabolic panel (03/08/2024 11:13 AM COUNTERINTELLIGENCE/HUMINT SPECIALIST) Sodium 143 135 - 145 mmol/L Potassium, pl 3.5 3.3 - 4.9 mmol/L [facility] Chloride 103 97 - 110 mmol/L [facility] CO2 30 22 - 32 mmol/L [facility] Anion gap 10 2 - 15 mmol/L [facility] BUN 12 6 - 25 mg/dL [facility] Creatinine 0.85 0.60 - 1.10 mg/dL [facility] Glucose 135 70 - 199 mg/dL [facility] Comment: Interpretive Data Fasting glucose >/= 126 [...] classification and Diagnosis of Diabetes Diabetes Care 202; 46: S19-S40. Current interpretive data was last revised 2022. Calcium 9.3 8.5 - 10.3 mg/dL CERNER Blood 03/08/2024 11:1 3 AM COUNTERINTELLIGENCE/HUMINT SPECIALIST 03/08/2024 3:49 PM COUNTERINTELLIGENCE/HUMINT SPECIALIST us Mannie Hernandez MD LAB BLOOD ORDERABLES Fin al Result [facility] [id number] [place] [address] documented in this encounter Visit Diagnoses Diagnosis Cardiac pacemaker in situ- Primary HFrEF (heart failure with reduced ejection fraction) (CMS/HCC) (HCC) Permanent atrial fibrillation (CMS/HCC) (HCC) Atrial fibrillation documented in this encounter Discontinued Medications Medication Sig Discontinue Reason Start Date End Da te rosuvastatin (CRESTOR) 10 mg tabletIndications:hyperl ipidemia Take 1 tablet (10 mg total) by mouth nightly Therapy completed 08/22/2022 02/13/2024 metoprolol XL (TOPROL-XL) 25 mg extended release tabletIndications:hypert ension Take 0.5 tablets (12.5 mg total) by mouth daily 08/22/2022 02/13/2024 documented as of this encounter Care Teams Claims Director Relationship Specialty Start Date End Date Jaleel Peterson MD PCP - General Family Practice 07/18/22 Reynaldo Flannery DO Consulting Physician Cardiology 09/26/17 Guanakito Holland MD Consulting Physician Cardiovascular Disease 07/29/18 documented as of this encounter
--- OUTSIDE RECORDS SUMMARY | 2024-04-11 06:34 | XMS_ITS | Encounter Summary ---
Author Organization [facility] Healthcare Address [address] [place] [address] Care Team Providers Care Carrier Packer Name Role Phone Reynaldo Flannery DO Unavailable [phone] Guanakito Holland MD Unavailable [phone] Jaleel Mcgovern MD Primary Care Provider [phone] Reason for Visit * Reason Comments Coronary Artery Disease Atrial Fibrillation 6 month follow up. Encounter Details Date Type Department Care Team (Late st Contact Info) Description 10/23/2023 11:00 AM CDT Office Visit [facility] Cardiology [address] [address] [address] [place] [address] Mannie Hernandez MD [address] [facility] [address] [place] [address] History of coronary artery stent placement (Primary Dx); Coronary artery disease involving [place] coronary artery of [place] heart without angina pectoris; Paroxysmal atrial fibrillation (CMS/HCC) (HCC); Cardiac pacemaker in situ Social History Tobacco Use Types Packs/Day Years [...] or relatives? Once a week 08/12/2022 Attends Congregational Services Not on file 08/12 Active Member [...] Recorded Patient Health Questionnaire-2 Score 0 08/23/2022 [facility] [place] of Occupat ional Health - Occupational Stress [...] place to sleep or slept in a long-term (including now)? No 08/12/2022 Personal Safety Answer Date Recorded Have you ever been in or are you currently in a harmful physical or emotional relationship or is someone making you feel afraid or unsafe? Denies 08/12/2022 Comments No Sex and Gender Information Value Date Recorded Sex Assigned at Not on file Legal Sex Female 11:18 AM RIDE ASSEMBLY SUPERVISOR Gender Identity Female 10/09/2022 9:08 AM CDT Sexual Orientation Choose not to disclose 2022 9:08 AM CDT documented as of this encounter Last Filed Vital Signs Vital Sign Reading Time Taken Comments Blood Pressure 92/64 10/23/2023 10:49 AM CDT Pulse 71 10/23/2023 10:49 AM CDT Temperature - - Respiratory Rate - - Oxygen Saturation 96% 10/23/2023 10:49 AM CDT Inhaled Oxygen Concentration - - Weight 65.8 kg (145 lb) 10/23/2023 10:49 AM CDT Height 154.9 cm (5' 1 ) 10/23/2023 10:49 AM CDT Body Mass Index 27.4 10/23/2023 10:49 AM CDT documented in this encounter Progress Notes * Mannie Hernandez MD - 10/23/2023 11:00 AM CDT [facility] 10/23/2023 Abena Giron is a 83 y.o. female who presents for follow up of coronary artery disease, previousinfarction, atrial fibrillation and previously implanted pacemaker device. This is a patient who was seen by me in consultation in 2021 when she transferred her care from her previous sand caster apprentice our practice. Her history dates back to 2014 when she sustained a myocardial infarction and underwent percutaneous revascularization up in [place]. Following that she presented with atrial fibrillation [...] acute ischemic stroke. She was taken to [facility] where s he was found to have an acutely closed left middle cerebral artery. She was treated with TNK and mechanical thrombectomy. The cardiology service was consulted at [facility] because of her low ejection fraction. She [...] no reason to be sensing her AF. He returns to the office today for a scheduled follow-up appointment. I saw her last 6 months ago. Her pacemaker device was checked today in the office and is functioning normally. There is about 4 years of service left on the current generator. She is clinically stable but continues to report symptoms of exertional intolerance fatigue, lack of energy. She has not having any orthopnea PND or accumulating edema. Her blood pressure in the office today is still too low to initiate therapy with an ARB or Entresto. We did have a conversation about the possibility of symptomatic improvement if she were to upgrade to a biventricular pacemaker. Her pacemaker device was implanted by her previous card iologist/EP physician who is no longer in the area. We did discuss the idea of consulting with an gun club manager either at [facility] or [facility] to discuss upgrading her device to a biventricular pacemaker. Despite her low ejection fraction she does NOT wish to have a defibrillator implant REVIEW OF SYSTEMS General ROS: negative for [...] (twelve) hours, Disp: 180 tablet, Rfl: 3 cholecalciferol (VITAMIN D-3) 2,000 unit tablet, take 1 tablet by oral route every day, Disp: 90, Rfl: 3 coenzyme Q10 30 mg capsule, Take 1 capsule (30 mg total) by mouth 3 (three) times a day, Disp: , Rfl: dapagliflozin propanediol (FARXIGA) 10 mg tablet, Take 1 tablet (10 mg total) by mouth daily, Disp:90 tablet, Rfl: 0 fexofenadine (WALESKA) 180 mg tablet, Take 1 [...] mouth daily, Disp: 45 tablet, Rfl: 0 rosuvastatin (CRESTOR) 10 mg tablet, Take 1 tablet (10 mg total) by mouth nightly, Disp: 90 tablet,Rfl: 0 spironolactone (ALDACTONE) 25 mg tablet, Take 0.5 tablets (12.5 mg total) by mouth daily, Disp: 45 tablet, Rfl: 0 aspirin 81 mg chewable tablet, Take 1 tablet (81 mg total) by mouth daily, Disp: 90 tablet, Rfl: 0 cyanocobalamin (Vitamin B-12) 100 mcg tablet, Take 10 tablets (1,000 mcg total) by mouth daily (Patient not taking: Reported on 08/29/2022), Disp: , Rfl: Ventolin HFA 90 mcg/actuation inhaler, , Disp: [...] for component: LABALBU PHYSICAL EXAM Vitals BP 92/64 (BP Location: Right arm, Patient Position: Sitting) Pulse 71 Ht 154.9 cm (5' 1 ) Wt 65.8 kg (145 lb) LMP (LMP Unknown) SpO2 96% BMI 27.40 kg/m?? Physical Examination: General appearance [...] tenderness noted Extremities - peripheral pulses normal, no pedal edema, no clubbing or cyanosis Skin - normal coloration and turgor, no rashes, no suspicious skin lesions noted ASSESSMENT Abena was seen today for coronary artery disease and atrial fibrillation. Diagnoses and all orders for this visit: History of coronary artery stent placement Coronary artery disease involving [place] coronary artery of [place] heart without angina pectoris Paroxysmal atrial fibrillation (CMS/HCC) (HCC) Cardiac pacemaker in situ PLAN/RECOMMENDATIONS Continue current medical regimen Marginal systolic blood pressure precludes initiation of Entresto Follow-up in 6 months She wants to think about consulting with an gun club manager. If she decides to go ahead with this we will refer her to the department at [facility] since she was very complimentary of the care that she received at [facility] in the past Mannie Hernandez MD documented in this encounter Plan of Treatment Not on file documented as of this encounter Visit Diagnoses Diagnosis History of coronary artery stent placement- Primary Coronary artery disease involving [place] coronary artery of [place] heart without angina pectoris Paroxysmal atrial fibrillation (CMS/HCC) (HCC) Atrial fibrillation Cardiac pacemaker in situ documented in this encounter Care Teams Carrier Packer Relationship Specialty Start Date End Date Jaleel Mcgovern MD PCP - General Family Practice 07/18/22 Reynaldo Flannery DO Consulting Physician Cardiology 09/26/17 Guanakito Holland MD Consulting Physician Cardiovascular Disease 07/29/18 documented as of this encounter
--- OUTSIDE RECORDS SUMMARY | 2024-04-11 06:34 | XMS_ITS | Encounter Summary ---
Author Organization [facility] Healthcare Address [address] [place] [address] Care Team Providers Care Rn Chronic Name Role Phone Reynaldo Flannery DO Unavailable [phone] Guanakito Holland MD Unavailable [phone] Jaleel Mcgovern MD Primary Care Provider [phone] Encounter Details Date Type Department Care Team (Late st Contact Info) Description 06/03/[address] [facility] Cardiology [address] [address] Mannie Hernandez MD [address] [facility] [address] [facility] [address] [place] [address] Social History Tobacco Use Types [...] or relatives? Once a week 08/12/2022 Attends Mormonism Services Not on file 08/12 Active Member [...] Recorded Patient Health Questionnaire-2 Score 0 08/23/2022 [facility] [place] of Occupat ional Health - Occupational Stress [...] place to sleep or slept in a assisted (including now)? No 08/12/2022 Personal Safety Answer Date Recorded Have you ever been in or are you currently in a harmful physical or emotional relationship or is someone making you feel afraid or unsafe? Denies 08/12/2022 Comments No Sex and Gender Information Value Date Recorded Sex Assigned at Not on file Legal Sex Female 11:18 AM AGRICULTURAL TECHNICAL OFFICER Gender Identity Female 10/09/2022 9:08 AM CDT Sexual Orientation Choose not to disclose 2022 9:08 AM CDT documented as of this encounter Miscellaneous Notes * Telephone Encounter - Dilia Campos MA - 06/03/2023 3:26 PM CDT Received a fax request from [facility] for a new script for Nayely. Completed form and faxed back to [facility]. documented in this encounter Plan of Treatment Not on file documented as of this encounter Visit Diagnoses Not on filedocumented in this encounter Care Teams Rn Chronic Relationship Specialty Start Date End Date Jaleel Mcgovern MD PCP - General Family Practice 07/18/22 Reynaldo Flannery DO Consulting Physician Cardiology 09/26/17 Guanakito Holland MD Consulting Physician Cardiovascular Disease 07/29/18 documented as of this encounter
--- OUTSIDE RECORDS SUMMARY | 2024-04-11 06:34 | XMS_ITS | Encounter Summary ---
Author Organization [facility] Healthcare Address [address] [place] [address] Care Team Providers Care Bond Runner Name Role Phone Reynaldo Flannery DO Unavailable Guanakito Holland MD Unavailable [phone] Jaleel Mcgovern MD Primary Care Provider [phone] Encounter Details Date Type Department Care Team (Late st Contact Info) Description 04/24/2023 11:00 AM PIANOS AND ORGANS SALESPERSON Office Visit [facility] Cardiology [address] [address] [address] [place] [id number] Mannie Hernandez MD [address] [facility] [address] [facility] [address] [place] [address] History of coronary artery stent placement (Primary Dx); Coronary artery disease involving karuk coronary artery of karuk heart without angina pectoris; HFrEF (heart failure with reduced ejection fraction) (CMS/HCC) (HCC); Cardiac pacemaker in situ; Sick sinus syndrome (CMS/HCC) (HCC) Social History Tobacco Use Types [...] or relatives? Once a week 08/12/2022 Attends Congregation Services Not on file 08/12 Active Member [...] Recorded Patient Health Questionnaire-2 Score 0 08/23/2022 [facility] [place] of Occupat ional Health - Occupational Stress [...] place to sleep or slept in a jail (including now)? No 08/12/2022 Personal Safety Answer Date Recorded Have you ever been in or are you currently in a harmful physical or emotional relationship or is someone making you feel afraid or unsafe? Denies 08/12/2022 Comments No Sex and Gender Information Value Date Recorded Sex Assigned at Not on file Legal Sex Female 11:18 AM PIANOS AND ORGANS SALESPERSON Gender Identity Female 10/09/2022 9:08 AM CDT Sexual Orientation Choose not to disclose 2022 9:08 AM CDT documented as of this encounter Last Filed Vital Signs Vital Sign Reading Time Taken Comments Blood Pressure 100/68 04/24/2023 10:58 AM PIANOS AND ORGANS SALESPERSON Pulse 83 04/24/2023 10:58 AM PIANOS AND ORGANS SALESPERSON Temperature - - Respiratory Rate - - Oxygen Saturation 98% 04/24/2023 10:58 AM PIANOS AND ORGANS SALESPERSON Inhaled Oxygen Concentration - - Weight 65.8 kg (145 lb) 04/24/2023 10:58 AM PIANOS AND ORGANS SALESPERSON Height 154.9 cm (5' 1 ) 04/24/2023 10:58 AM PIANOS AND ORGANS SALESPERSON Body Mass Index 27.4 04/24/2023 10:58 AM PIANOS AND ORGANS SALESPERSON documented in this encounter Progress Notes * Mannie Hernandez MD - 04/24/2023 11:00 AM CST [facility] FOLLOW UP 04/24/2023 Abena Giron is a 83 y.o. female who presents for follow up of coronary artery disease, previousinfarction, atrial fibrillation and previously implanted pacemaker device. This is a patient who was seen by me in consultation in 2021 when she transferred her care from her previous applied technologist our practice. Her history dates back to 2014 when she sustained a myocardial infarction and underwent percutaneous revascularization up in [place]. Following that she presented with atrial fibrillation [...] acute ischemic stroke. She was taken to [facility] where s he was found to have an acutely closed left middle cerebral artery. She was treated with TNK and mechanical thrombectomy. The cardiology service was consulted at [facility] because of her low ejection fraction. She [...] reason to be sensing her AF. She returns to the office today for scheduled three-month appointment. Her blood pressure is still soft at 100/68 but unchanged from her last visit several months ago. She says that over the time of the last 3 months he is gradually felt better in terms of less shortness of breath more stamina and energy she is performing her daily activities now without any problems and she is very happy about that. Her blood pressure still is marginal as described above so I told her I was not going to attempt to restart an ARB or an KENJI inhibitor at this time. REVIEW OF SYSTEMS General ROS: negative for [...] 12 (twelve) hours, Disp: 180 tablet, Rfl: 0 aspirin 81 mg chewable tablet, Take 1 tablet (81 mg total) by mouth daily, Disp: 90 tablet, Rfl: 0 cholecalciferol (VITAMIN D-3) 2,000 unit tablet, take 1 tablet by oral route every day, Disp: 90, Rfl: 3 coenzyme Q10 30 mg capsule, Take 1 capsule (30 mg total) by mouth 3 (three) times a day, Disp: , Rfl: dapagliflozin (FARXIGA) 10 mg tablet, Take 1 tablet (10 mg total) by mouth daily, Disp: 90 tablet, Rfl: 0 fexofenadine (WALESKA) 180 mg [...] mouth daily, Disp: 45 tablet, Rfl: 0 cyanocobalamin (Vitamin B-12) 100 [...] exists for component: LABALBU PHYSICAL EXAM Vitals LMP (LMP Unknown) Physical Examination: General appearance - alert, well [...] rashes, no suspicious skin lesions noted ASSESSMENT Diagnoses and all orders for this visit: History of coronary artery stent placement Coronary artery disease involving karuk coronary artery of karuk heart without angina pectoris HFrEF (heart failure with reduced ejection fraction) (CMS/[facility]) ([facility]) Cardiac pacemaker in situ Sick sinus syndrome ([facility]/HCC) ([facility]) PLAN/RECOMMENDATIONS Continue current medical regimen Marginal blood pressure continues I will not initiate treatment with Entresto at this time Follow-up 6 months or p.r.n. Mannie Hernandez MD OS AND ORGANS SALESPERSON documented in this encounter Plan of Treatment Not on file documented as of this encounter Visit Diagnoses Diagnosis History of coronary artery stent placement- Primary Coronary artery disease involving karuk coronary artery of karuk heart without angina pectoris HFrEF (heart failure with reduced ejection fraction) (CMS/HCC) ([facility]) Cardiac pacemaker in situ Sick sinus syndrome ([facility]/HCC) ([facility]) Sinoatrial node dysfunction documented in this encounter Historical Medications * This list may reflect changes made after this encounter. coenzyme Q10 30 mg capsule Take 1 capsule (30 mg total) by mouth 3 (three) times a day added in this encounter Care Teams Bond Runner Relationship Specialty Start Date End Date Jaleel Mcgovern MD PCP - General Family Practice 4/27/23 Reynaldo Flannery DO Consulting Physician Cardiology 09/26/17 Guanakito Holland MD Consulting Physician Cardiovascular Disease 07/29/18 documented as of this encounter
--- OUTSIDE RECORDS SUMMARY | 2024-04-11 06:34 | XMS_ITS | Encounter Summary ---
Author Organization [facility] Healthcare Address [address] [place] [address] Care Team Providers Care Wheat Cleaner Name Role Phone Reynaldo Flannery DO Unavailable Guanakito Holland MD Unavailable [phone] Jaleel Mcgovern MD Primary Care Provider [phone] Reason for Visit * Reason Onset Date Comments Med Management 05/14/2023 Patient has appl ied for patient assistance and the original prescription is discontinued and under her primary care. [facility] is asking us for an updated script. Encounter Details Date Type Department Care Team (Late st Contact Info) Description 05/14/2023 Telephone [facility] Cardiology [address] [facility] [address] [address] Mannie Hernandez MD [address] [facility] [address] [place] [address] Med Management (Patient has applied for patient assistance and the original prescription is discontinued and under her primary care. [facility] is asking us for an updated script. ) Social History Tobacco Use Types Packs/Day Years [...] or relatives? Once a week 08/12/2022 Attends Islam Services Not on file 08/12 Active Member [...] Recorded Patient Health Questionnaire-2 Score 0 08/23/2022 [facility] [place] of Occupat ional Health - Occupational Stress [...] place to sleep or slept in a residential (including now)? No 08/12/2022 Personal Safety Answer Date Recorded Have you ever been in or are you currently in a harmful physical or emotional relationship or is someone making you feel afraid or unsafe? Denies 08/12/2022 Comments No Sex and Gender Information Value Date Recorded Sex Assigned at Not on file Legal Sex Female 11:18 AM MINE MOTOR OPERATOR Gender Identity Female 10/09/2022 9:08 AM CDT Sexual Orientation Choose not to disclose 2022 9:08 AM CDT documented as of this encounter Ordered Prescriptions Prescription Sig Dispense Quantity Refills Last Filled Start Date End Date dapagliflozin propanediol (FARXIGA) 10 mg tabletIndications: Heart Failure Take 1 tablet (10 mg total) by mouth daily 90 tablet 05/30/2023 12/11/2023 documented in this encounter Miscellaneous Notes * Addendum Note - Edison Mendoza CMA - 05/30/2023 12:50 PM CSTAddended by: EDISON MENDOZA on: 05/30/2023 12:50 PM Modules accepted: Orders MOTOR OPERATOR * Telephone Encounter - Edison Mendoza CMA - 05/30/2023 12:49 PM CST Tabatha was contacted, months worth of samples is waiting for Abena to peanut picker and I have refaxed the prescription to [facility]. MOTOR OPERATOR * Telephone Encounter - Edison Mendoza CMA - 05/30/2023 12:35 PM CST Refaxing prescription to patient assistance. Samples are available and will call the patient to make her aware. MOTOR OPERATOR * Telephone Encounter - Ginny Arauz - 05/30/2023 8:42 AM CST Tabatha states [facility] did not receive the Farxiga. Requesting it be re sent. States pt is goingto be out of Farxiga in 4 days so she is requesting we expedite it. Also wants to know if we have farxiga samples available. Contact: MOTOR OPERATOR * Addendum Note - Edison Mendoza CMA - 05/28/2023 9:02 AM CSTAddended by: EDISON MENDOZA on: 05/28/2023 09:02 AM Modules accepted: Orders MOTOR OPERATOR * Telephone Encounter - Edison Mendoza CMA - 05/26/2023 8:31 AM CST - Are you okay with taking over this patients farxiga medication? She was prescribed this in the ER, primary filled after but the script is now . We need an updated prescription for her patient assistance form. Please Advise, Thank you MOTOR OPERATOR * Telephone Encounter - Edison Mendoza CMA - 05/26/2023 8:25 AM CST Contacted Tabatha to let her know I am asking to take over her Farixga Medication, willcall her with an update once I know more. MOTOR OPERATOR * Telephone Encounter - Edison Mendoza CMA - 05/23/2023 12:47 PM CST Contacted patients daughter to let her know we have received the fax from [facility] and will be sending over fax once more clarification is giving for the prescription. MOTOR OPERATOR * Telephone Encounter - Savannah Quijano RN - 05/23/2023 10:34 AM CST Will forward MOTOR OPERATOR * Telephone Encounter - Tisha Garnica - 05/23/2023 10:00 AM CST Pt daughter Tabatha requesting a call back with an update in regard to pt assistance forms. Contact:[phone] MOTOR OPERATOR * Telephone Encounter - Savannah Quijano RN - 05/21/2023 3:28 PM CST Will forward to Edison MOTOR OPERATOR * Telephone Encounter - Lizbet Miller MA - 05/21/2023 2:11 PM CST Thank you. Form should go to his MA. Salazar Heads up you should be getting this form MOTOR OPERATOR * Telephone Encounter - Tisha Garnica - 05/21/2023 12:01 PM CST Pt daughter reports [facility] us pt assistance forms for pt medication dapagliflozin (FARXIGA) 10 mg tablet. Contact:[phone] MOTOR OPERATOR * Telephone Encounter - Lizbet Miller MA - 05/14/2023 3:33 PM CST Left msg for pt asking her to call office. Unable to leave a detailed msg bc we do not have a HIPAAform on file. Currently out of samples. Pt can check back next week to see if we get any in MOTOR OPERATOR * Telephone Encounter - Tisha Garnica - 05/14/2023 3:10 PM CST Pt daughter called in requesting samples of dapagliflozin (FARXIGA) 10 mg tablet as medication is expensive. Informed pt we do not provide samples of this medication. Pt daughter will return call forfurther assistance after trying other options. Contact:[phone] MOTOR OPERATOR documented in this encounter Plan of Treatment Not on file documented as of this encounter Visit Diagnoses Not on filedocumented in this encounter Discontinued Medications Medication Sig Discontinue Reason Start Date End Da te dapagliflozin (FARXIGA) 10 mg tabletIndications:Heart Failure Take 1 tablet (10 mg total) by mouth daily Reorder 08/22/2022 05/28/2023 documented as of this encounter Care Teams Wheat Cleaner Relationship Specialty Start Date End Date Jaleel Mcgovern MD PCP - General Family Practice 07/18/22 Reynaldo Flannery DO Consulting Physician Cardiology 09/26/17 Guanakito Holland MD Consulting Physician Cardiovascular Disease 07/29/18 documented as of this encounter
--- OUTSIDE RECORDS SUMMARY | 2024-04-11 06:34 | XMS_ITS | Encounter Summary ---
Author Organization [facility] Healthcare Address [address] [place] [address] Care Team Providers Care Web Press Operator Name Role Phone Renyaldo Flannery DO Unavailable [phone] Guanakito Holland MD Unavailable [phone] Jaleel Mcgovern MD Primary Care Provider [phone] Encounter Details Date Type Department Care Team (Late st Contact Info) Description 03/08/2024 11:15 AM AUDIO TECHNICIAN Lab [facility] Medical [facility] Outpatient Lab at [address] [address] Hyperlipidemia (Primary Dx); Hypertension Social History Tobacco Use Types Packs/Day Years [...] or relatives? Once a week 08/12/2022 Attends Baptism Services Not on file 08/12 Active Member [...] Recorded Patient Health Questionnaire-2 Score 0 08/23/2022 [facility] of Occupat ional Health - Occupational Stress [...] place to sleep or slept in a detention (including now)? No 08/12/2022 Personal Safety Answer Date Recorded Have you ever been in or are you currently in a harmful physical or emotional relationship or is someone making you feel afraid or unsafe? Denies 08/12/2022 Comments No Sex and Gender Information Value Date Recorded Sex Assigned at Not on file Legal Sex Female 11:18 AM AUDIO TECHNICIAN Gender Identity Female 10/09/2022 9:08 AM CDT Sexual Orientation Choose not to disclose 2022 9:08 AM CDT documented as of this encounter Plan of Treatment Not on file documented as of this encounter Visit Diagnoses Diagnosis Hyperlipidemia- Primary Other and unspecified hyperlipidemia Hypertension Unspecified essential hypertension documented in this encounter Care Teams Web Press Operator Relationship Specialty Start Date End Date Jaleel Mcgovern MD PCP - General Family Practice 07/18/22 Reynaldo Flannery DO Consulting Physician Cardiology 09/26/17 Guanakito Holland MD Consulting Physician Cardiovascular Disease 07/29/18 documented as of this encounter
--- OUTSIDE RECORDS SUMMARY | 2024-04-11 06:34 | XMS_ITS | Encounter Summary ---
Author Organization [facility] Healthcare Address [address] [place] [address] Care Team Providers Care Bodybuilder Name Role Phone Reynaldo Flannery DO Unavailable [phone] Guanakito Holland MD Unavailable Jaleel Mcgovern MD Primary Care Provider [phone] Reason for Visit * Reason Onset Date Comments Pt assistance forms 01/29/2024 Encounter Details Date Type Department Care Team (Late st Contact Info) Description 01/29/[address] [facility] Medical Group Cardiology [address] [place] [address] Lizbet Miller MA Pt assistance forms Social History Tobacco Use Types Packs/Day Years [...] or relatives? Once a week 08/12/2022 Attends Christian Services Not on file 08/12 Active Member [...] Recorded Patient Health Questionnaire-2 Score 0 08/23/2022 [facility] of Occupat ional Health - Occupational Stress [...] place to sleep or slept in a prison (including now)? No 08/12/2022 Personal Safety Answer Date Recorded Have you ever been in or are you currently in a harmful physical or emotional relationship or is someone making you feel afraid or unsafe? Denies 08/12/2022 Comments No Sex and Gender Information Value Date Recorded Sex Assigned at Not on file Legal Sex Female 11:18 AM DEMOLITION CRANE OPERATOR Gender Identity Female 10/09/2022 9:08 AM CDT Sexual Orientation Choose not to disclose 2022 9:08 AM CDT documented as of this encounter Miscellaneous Notes * Telephone Encounter - Lizbet Miller MA - 01/29/2024 3:34 PM CST Kareem pt assistance mailed to pt. Current approval ends 03/23/24 LITION CRANE OPERATOR documented in this encounter Plan of Treatment Not on file documented as of this encounter Visit Diagnoses Not on filedocumented in this encounter Care Teams Bodybuilder Relationship Specialty Start Date End Date Jaleel Mcgovern MD PCP - General Family Practice 07/18/22 Reynaldo Flannery DO Consulting Physician Cardiology 09/26/17 Guanakito Holland MD Consulting Physician Cardiovascular Disease 07/29/18 documented as of this encounter
--- OUTSIDE RECORDS SUMMARY | 2024-04-11 06:34 | XMS_ITS | Encounter Summary ---
Author Organization [facility] Healthcare Address [address] [place] [address] Care Team Providers Care Sap Architect Name Role Phone Reynaldo Flannery DO Unavailable [phone] Guanakito Holland MD Unavailable [phone] Jaleel Mcgovern MD Primary Care Provider [phone] Encounter Details Date Type Department Care Team (Latest Contact Info) Description 03/08/2024 11:13 AM WELDING MACHINE OPERATOR ELECTRO GAS - 03/08/2024 11:59 PM WELDING MACHINE OPERATOR ELECTRO GAS Hospital Encounter [facility] [address] [place] [address] Cardiac pacemaker in situ; HFrEF (heart failure with reduced ejection fraction) (CMS/HCC) ([facility]); Permanent atrial fibrillation (CMS/HCC) ([facility]) Discharge Disposition: Discharge to home or self care Social History Tobacco Use Types Packs/Day Years [...] Recorded Patient Health Questionnaire-2 Score 0 08/23/2022 [facility] of Occupat ional Health - Occupational Stress [...] on file Legal Sex Female 11:18 AM WELDING MACHINE OPERATOR ELECTRO GAS Gender Identity Female 10/09/2022 9:08 AM CDT Sexual Orientation Choose not to disclose 2022 9:08 AM CDT documented as of this encounter Medications at Time of Discharge acetaminophen (TYLENOL) 160 mg chewable tabletIndications: Pain Take 1 tablet (160 mg total) by mouth every 6 (six) hours as needed for pain apixaban (ELIQUIS) 5 mg tabletIndications: atrial fibrillation Take 1 tablet (5 mg total) by mouth every 12 (twelve) hours 180 tablet 3 03/03/2024 5 aspirin 81 mg chewable tabletIndications: prevention of thrombosis Take 1 tablet (81 mg total) by mouth daily 90 tablet 08/22/2022 5 cholecalciferol (VITAMIN D-3) 2,000 unit tabletIndications: Prevention of Vitamin D Deficiency take 1 tablet by oral route every day 90 3 12/06/2015 coenzyme Q10 30 mg capsule Take 1 capsule (30 mg total) by mouth 3 (three) times a day cyanocobalamin (Vitamin B-12) 100 mcg tabletIndications: Prevention of Vitamin B12 Deficiency Take 10 tablets (1,000 mcg total) by mouth daily dapagliflozin propanediol (FARXIGA) 10 mg tabletIndications: Heart Failure Take 1 tablet (10 mg total) by mouth daily 90 tablet 2 12/11/2023 5 fexofenadine (WALESKA) 180 mg tabletIndications: allergies Take 1 tablet (180 mg total) by mouth daily as needed (allergies) fluticasone propionate (FLONASE) 50 mcg/actuation nasal sprayIndications:a llergies Administer 1 spray into each nostril daily as needed for allergies furosemide (LASIX) 20 mg tablet 10/28/2022 sacubitriL-valsart an (ENTRESTO) 24-26 mg tabletIndications: chronic heart failure Take 1 tablet by mouth 2 (two) times a day 180 tablet 3 03/03/2024 spironolactone (ALDACTONE) 25 mg tabletIndications: hypertension Take 0.5 tablets (12.5 mg total) by mouth daily 45 tablet 08/22/2022 5 Ventolin HFA 90 mcg/actuation inhaler 07/03/2022 documented as of this encounter Discharge Disposition Disposition Code Departure Means Destination Discharge to home or self care documented in this encounter Plan of Treatment Not on file documented as of this encounter Procedures Procedure Name Priority Date/Time Associated Diagnosis Comments EGFR Routine 03/08/2024 11:13 AM WELDING MACHINE OPERATOR ELECTRO GAS Cardiac pacemaker in situ HFrEF (heart failure with reduced ejection fraction) (CMS/HCC) (HCC) Permanent atrial fibrillation (CMS/HCC) (HCC) BASIC METABOLIC PANEL Routine 03/08/2024 11:13 AM WELDING MACHINE OPERATOR ELECTRO GAS Cardiac pacemaker in situ HFrEF (heart failure with reduced ejection fraction) (CMS/HCC) (HCC) Permanent atrial fibrillation (CMS/HCC) (HCC) documented in this encounter Results * eGFR (03/08/2024 11:13 AM WELDING MACHINE OPERATOR ELECTRO GAS) eGFR 68 >=60 mL/min/1. 73 m2 Comment: [...] reviewed 2021. Blood 03/08/2024 11:1 3 AM WELDING MACHINE OPERATOR ELECTRO GAS 03/08/2024 3:49 PM WELDING MACHINE OPERATOR ELECTRO GAS us Mannie Hernandez MD LAB BLOOD ORDERABLES Fin al Result [facility] [address] Department [place] [address] * Basic metabolic panel (03/08/2024 11:13 AM WELDING MACHINE OPERATOR ELECTRO GAS) Sodium 143 135 - 145 mmol/L Potassium, pl 3.5 3.3 - 4.9 mmol/L [facility] Chloride 103 97 - 110 mmol/L [facility] CO2 30 22 - 32 mmol/L [facility] Anion gap 10 2 - 15 mmol/L [facility] BUN 12 6 - 25 mg/dL [facility] Creatinine 0.85 0.60 - 1.10 mg/dL [facility] Glucose 135 70 - 199 mg/dL [facility] Comment: Interpretive Data Fasting glucose >/= 126 [...] 2022. Calcium 9.3 8.5 - 10.3 mg/dL [facility] Blood 03/08/2024 11:1 3 AM WELDING MACHINE OPERATOR ELECTRO GAS 03/08/2024 3:49 PM WELDING MACHINE OPERATOR ELECTRO GAS us Mannie Hernandez MD LAB BLOOD ORDERABLES Fin al Result [facility] [address] Department [place] [address] documented in this encounter Visit Diagnoses Diagnosis Cardiac pacemaker in situ HFrEF (heart failure with reduced ejection fraction) (CMS/HCC) (HCC) Permanent atrial fibrillation (CMS/HCC) (HCC) Atrial fibrillation documented in this encounter Care Teams Sap Architect Relationship Specialty Start Date End Date Jaleel Mcgovern MD PCP - General Family Practice 07/18/22 Reynaldo Flannery DO Consulting Physician Cardiology 09/26/17 Guanakito Holland MD Consulting Physician Cardiovascular Disease 07/29/18 documented as of this encounter
--- OUTSIDE RECORDS SUMMARY | 2024-04-11 06:34 | XMS_ITS | Encounter Summary ---
Author Organization [facility] Healthcare Address [address] [place] [address] Care Team Providers Care Center Hole Reamer Name Role Phone Reynaldo Flannery DO Unavailable [phone] Guanakito Holland MD Unavailable [phone] Jaleel Mcgovern MD Primary Care Provider [phone] Reason for Visit * Cardiology (Routine) - Closed Specialty Diagnoses / Procedures Referred By Contac t Referred To Contact Diagnoses Paroxysmal atrial fibrillation (CMS/HCC) (HCC) Sick sinus syndrome (CMS/HCC) (HCC) Cardiac pacemaker in situ Procedures DEVICE CHECK - IN OFFICE Mannie Hernandez MD [address] [place] [address] Phone: tel: fax: [facility] Referral ID Status Reason Start Date Expiration Date Visits Re quested Visits Authorized [id number] Closed 09/19/2021 10/29/2023 1 1 Encounter Details Date Type Department Care Team (Latest Contact Info) Description 10/23/2023 10:30 AM CDT Ancillary Procedure [facility] Cardiology [address] [place] [id number] Paroxysmal atrial fibrillation (CMS/HCC) (HCC); Sick sinus syndrome (CMS/HCC) (HCC); Cardiac pacemaker in situ Social [...] or relatives? Once a week 08/12/2022 Attends Gnosticism Services Not on file 08/12 Active Member [...] Recorded Patient Health Questionnaire-2 Score 0 08/23/2022 [facility] [place] of Occupat ional Health - Occupational Stress [...] place to sleep or slept in a longterm (including now)? No 08/12/2022 Personal Safety Answer Date Recorded Have you ever been in or are you currently in a harmful physical or emotional relationship or is someone making you feel afraid or unsafe? 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 Gender Identity Female 10/09/2022 9:08 AM CDT Sexual Orientation Choose not to disclose 2022 9:08 AM CDT documented as of this encounter Plan of Treatment Not on file documented as of this encounter Procedures Procedure Name Priority Date/Time Associated Diagnosis Comments DEVICE CHECK - IN OFFICE Routine 10/23/2023 10:09 AM CDT Paroxysmal atrial fibrillation (CMS/HCC) (HCC) Sick sinus syndrome (CMS/HCC) (HCC) Cardiac pacemaker in situ documented in this encounter Results * DEVICE CHECK - IN OFFICE (10/23/2023 10:09 AM CDT) Anatomical Region Laterality Modality Other Narrative 11/17/2023 3:19 PM CDT [employer] Dual Pacemaker. Dx; SSS, Afib. DOI 07/29/2018-Dr Holland. RA Lead replaced 09/14/18. AV Node Ablation 12/2018. [employer] remote monitoring. Office VVI-CLS BIV Pacemaker ICD device interrogation performed by [employer] company accounts receivable representative. Transmission attached. Stable lead impedances, pacing and sensing thresholds. Charge time and Shock impedance. Battery voltage- Ok, 4.0 years 4 months remaining to LEANA. [employer]-93 %. Presenting rhythm- Vpaced. No Ventricular arrhythmias detected. ?? Medication: Eliquis, Programming changes made to device settings. See scanned report. [employer] remote f/u 10/27/2023. Office device f/u expected in 1 year. Mannie Hernandez MD CV CARDIAC SERVICES PROC EDURES Final Result documented in this encounter Visit Diagnoses Diagnosis Paroxysmal atrial fibrillation (CMS/HCC) (HCC) Atrial fibrillation Sick sinus syndrome (CMS/HCC) (HCC) Sinoatrial node dysfunction Cardiac pacemaker in situ documented in this encounter Care Teams Center Hole Reamer Relationship Specialty Start Date End Date Jaleel Mcgovern MD PCP - General Family Practice 07/18/22 Reynaldo Flannery DO Consulting Physician Cardiology 09/26/17 Guanakito Holland MD Consulting Physician Cardiovascular Disease 07/29/18 documented as of this encounter
--- OUTSIDE RECORDS SUMMARY | 2024-04-11 06:34 | XMS_ITS | Encounter Summary ---
Author Organization [facility] Healthcare Address [address] [place] [address] Care Team Providers Care Data Processing Systems Consultant Name Role Phone Reynaldo Flannery DO Unavailable [phone] Guanakito Holland MD Unavailable [phone] Jaleel Mcgovern MD Primary Care Provider [phone] Reason for Visit * Reason Onset Date Comments Shortness of Breath 02/04/2024 Joint Swelling 02/04/2024 Encounter Details Date Type Department Care Team (Late st Contact Info) Description 02/04/2024 Telephone [facility] Cardiology [address] [facility] [address] [place] [address] Mannie Hernandez MD [address] [place] [address] Shortness of Breath; Joint Swelling Social History Tobacco Use Types Packs/Day Years [...] or relatives? Once a week 08/12/2022 Attends Mosque Services Not on file 08/12 Active Member [...] Recorded Patient Health Questionnaire-2 Score 0 08/23/2022 [facility] [place] of Occupat ional Health - Occupational Stress [...] place to sleep or slept in a retirement (including now)? No 08/12/2022 Personal Safety Answer Date Recorded Have you ever been in or are you currently in a harmful physical or emotional relationship or is someone making you feel afraid or unsafe? Denies 08/12/2022 Comments No Sex and Gender Information Value Date Recorded Sex Assigned at Not on file Legal Sex Female 11:18 AM BROADCAST OPERATIONS TECHNICIAN Gender Identity Female 10/09/2022 9:08 AM CDT Sexual Orientation Choose not to disclose 2022 9:08 AM CDT documented as of this encounter Miscellaneous Notes * Telephone Encounter - Lizbet Bashir RN - 02/05/2024 8:48 AM BROADCAST OPERATIONS TECHNICIAN Spoke with pts daughter, reviewed response below from [facility]. Daughter verbalizes understanding. DCAST OPERATIONS TECHNICIAN * Telephone Encounter - Erica Means - 02/04/2024 11:48 AM CST Tabatha (pts dgt) states that their at home BP monitor is broken but she has placed an order for a new one and will call back with readings once she gets it. Contact [phone] DCAST OPERATIONS TECHNICIAN * Telephone Encounter - Lizbet Bashir RN - 02/04/2024 9:54 AM BROADCAST OPERATIONS TECHNICIAN Spoke with pts daughter, daughter states that pt has been experiencing sob when laying flat at night and some increased lower extremity swelling. Daughter wanting to know if pt can increase lasix from 20 mg daily to 20 mg bid for a few days to see if this helps with pts symptoms. Advised daughter to call back with updated bp reading to see if pts bp will tolerate an increase. She will call back with an update. Will forward to [facility] to see if pt can temporarily increase furosemide to help with symptoms. Please advise. DCAST OPERATIONS TECHNICIAN * Telephone Encounter - Erica Means - 02/04/2024 9:21 AM CST Tabatha (pts dgt) states that patient was on Rx furosemide (LASIX) tablet 40 mg. Dosage was decreased to 20 mg. Tabatha states that recently the patient has been experiencing ankle swelling and some SOB. Would like to discuss increasing the dosage. Please advise. Thank you. Contact [phone] DCAST OPERATIONS TECHNICIAN documented in this encounter Plan of Treatment Not on file documented as of this encounter Visit Diagnoses Not on filedocumented in this encounter Care Teams Data Processing Systems Consultant Relationship Specialty Start Date End Date Jaleel Mcgovern MD PCP - General Family Practice 07/18/22 Reynaldo Flannery DO Consulting Physician Cardiology 09/26/17 Guanakito Holland MD Consulting Physician Cardiovascular Disease 07/29/18 documented as of this encounter
--- OUTSIDE RECORDS SUMMARY | 2024-04-11 06:34 | XMS_ITS | Encounter Summary ---
Author Organization [facility] Healthcare Address [address] [place] [address] Care Team Providers Care Counter Waiter Name Role Phone Reynaldo Flannery DO Unavailable [phone] Guanakito Holland MD Unavailable [phone] Jaleel Mcgovern MD Primary Care Provider [phone] Encounter Details Date Type Department Care Team (Late st Contact Info) Description 08/29/2023 Telephone [facility] Cardiology [address] [address] Mannie Hernandez MD [address] [facility] [address] [facility] [address] [place] [address] Social History Tobacco Use Types [...] or relatives? Once a week 08/12/2022 Attends [employer] Services Not on file 08/12 Active Member [...] Recorded Patient Health Questionnaire-2 Score 0 08/23/2022 [facility] [place] of Occupat ional Health - Occupational Stress [...] place to sleep or slept in a half-way (including now)? No 08/12/2022 Personal Safety Answer Date Recorded Have you ever been in or are you currently in a harmful physical or emotional relationship or is someone making you feel afraid or unsafe? Denies 08/12/2022 Comments No Sex and Gender Information Value Date Recorded Sex Assigned at Not on file Legal Sex Female 11:18 AM FISH PACKER Gender Identity Female 10/09/2022 9:08 AM CDT Sexual Orientation Choose not to disclose 2022 9:08 AM CDT documented as of this encounter Miscellaneous Notes * Telephone Encounter - Lizbet Cerda MA - 10/30/2023 1:20 PM CDT Error documented in this encounter Plan of Treatment Not on file documented as of this encounter Visit Diagnoses Not on filedocumented in this encounter Care Teams Counter Waiter Relationship Specialty Start Date End Date Jaleel Mcgovern MD PCP - General Family Practice 07/18/22 Reynaldo Flannery DO Consulting Physician Cardiology 09/26/17 Guanakito Holland MD Consulting Physician Cardiovascular Disease 07/29/18 documented as of this encounter
--- OUTSIDE RECORDS SUMMARY | 2024-04-11 06:34 | XMS_ITS | Encounter Summary ---
Author Organization [facility] Healthcare Address [address] [place] [address] Care Team Providers Care Installment Account Checker Name Role Phone Reynaldo Flannery DO Unavailable [phone] Guanakito Holland MD Unavailable [phone] Jaleel Mcgovern MD Primary Care Provider [phone] Reason for Visit * Cardiology (Routine) - Closed Specialty Diagnoses / Procedures Referred By Contac t Referred To Contact Diagnoses Paroxysmal atrial fibrillation (CMS/HCC) (HCC) Sick sinus syndrome (CMS/HCC) (HCC) Cardiac pacemaker in situ Procedures DEVICE CHECK - REMOTE Mannie Hernandez MD [address] [facility] [address] [address] Phone: tel: fax: [facility] Referral ID Status Reason Start Date Expiration Date Visits Re quested Visits Authorized [id number] Closed 09/19/2021 07/23/2023 1 1 Encounter Details Date Type Department Care Team (Latest Contact Info) Description 07/22/2023 7:15 AM CDT Ancillary Procedure [facility] Cardiology [address] [place] [address] [place] [id number] Paroxysmal atrial fibrillation (CMS/HCC) (HCC); Sick sinus [...] or relatives? Once a week 08/12/2022 Attends Alevism Services Not on file 08/12 Active Member [...] Recorded Patient Health Questionnaire-2 Score 0 08/23/2022 [facility] [place] of Occupat ional Health - Occupational Stress [...] place to sleep or slept in a long term (including now)? No 08/12/2022 Personal Safety Answer Date Recorded Have you ever been in or are you currently in a harmful physical or emotional relationship or is someone making you feel afraid or unsafe? Denies 08/12/2022 Comments No Sex and Gender Information Value Date Recorded Sex Assigned at Not on file Legal Sex Female 11:18 AM DIRECTOR OF BROADCAST Gender Identity Female 10/09/2022 9:08 AM CDT Sexual Orientation Choose not to disclose 2022 9:08 AM CDT documented as of this encounter Plan of Treatment Not on file documented as of this encounter Procedures Procedure Name Priority Date/Time Associated Diagnosis Comments DEVICE CHECK - REMOTE Routine 07/22/2023 10:25 AM CDT Paroxysmal atrial fibrillation (CMS/HCC) (HCC) Sick sinus syndrome (CMS/HCC) (HCC) Cardiac pacemaker in situ documented in this encounter Results * DEVICE CHECK - REMOTE (07/22/2023 10:25 AM CDT) Anatomical Region Laterality Modality Other Narrative 10/14/2023 12:17 PM CDT [employer] Dual Pacemaker. Dx; SSS, Afib. DOI 07/29/2018-Dr Holland. RA Lead replaced 09/14/18. AV Node Ablation 12/2018. [employer] remote monitoring. Routine VVI Pacemaker Remote. Transmission attached. Battery status-Ok, 55% remaining to LEANA. Stable lead impedances, pacing and sensing thresholds. Presenting rhythm: Vpaced. [employer]-93 %. No Ventricular arrhythmias detected. ?? Medication: Eliquis, Toprol XL. Office pacemaker f/u and ROV with Dr Hernandez scheduled 10/23/2023. Merry Cavanaugh, RN Mannie Hernandez MD CV CARDIAC SERVICES PROC EDURES Final Result documented in this encounter Visit Diagnoses Diagnosis Paroxysmal atrial fibrillation (CMS/HCC) (HCC) Atrial fibrillation Sick sinus syndrome (CMS/HCC) (HCC) Sinoatrial node dysfunction Cardiac pacemaker in situ documented in this encounter Care Teams Installment Account Checker Relationship Specialty Start Date End Date Jaleel Mcgovern MD PCP - General Family Practice 07/18/22 Reynaldo Flannery DO Consulting Physician Cardiology 09/26/17 Guanakito Holland MD Consulting Physician Cardiovascular Disease 07/29/18 documented as of this encounter
--- OUTSIDE RECORDS SUMMARY | 2024-04-11 06:34 | XMS_ITS | Referral Summary ---
Author Organization [facility] Address [address] [place] [id number] Care Team Providers Care Talcer Name Role Phone Reynaldo Flannery DO Unavailable [phone] Guanakito Holland MD Unavailable [phone] Jaleel Mcgovern MD Primary Care Provider [phone] Encounters Date Type Department Care Team Description 03/08/2024 11:13 AM TELEGRAPHIC TYPEWRITER INSTALLER - 03/08/2024 11:59 PM TELEGRAPHIC TYPEWRITER INSTALLER Hospital Encounter [address] [address] Cardiac pacemaker in situ; HFrEF (heart failure with reduced ejection fraction) (CMS/HCC) (HCC); Permanent atrial fibrillation (CMS/HCC) (HCC) Discharge Disposition: Discharge to home or self care 03/08/2024 11:15 AM TELEGRAPHIC TYPEWRITER INSTALLER Lab [facility] Outpatient Lab at [address] [address] Hyperlipidemia (Primary Dx); Hypertension 02/13/2024 11:00 AM TELEGRAPHIC TYPEWRITER INSTALLER Office Visit [facility] Cardiology at [address] [place] [address] Mannie Hernandez MD Cardiac pacemaker in situ (Primary Dx); HFrEF (heart failure with reduced ejection fraction) (CMS/HCC) (HCC); Permanent atrial fibrillation (CMS/HCC) (HCC) 02/04/2024 Telephone [facility] Cardiology [address] [facility] [address] [place] [phone] Mannie Hernandez MD Shortness of Breath; Joint Swelling 01/29/2024 Telephone [facility] Cardiology [address] [place] [address] [address] [place] [phone] Lizbet Miller MA Pt assistance forms 01/28/2024 Orders Only [address] [place] [phone] Mannie Hernandez MD Paroxysmal atrial fibrillation (CMS/HCC) ([facility]) (Primary Dx); Sick sinus syndrome (CMS/HCC) ([facility]); HFrEF (heart failure with reduced ejection fraction) (CMS/HCC) ([facility]) 01/27/2024 9:30 AM TELEGRAPHIC TYPEWRITER INSTALLER Ancillary Procedure [facility] Cardiology [address] [place] [address] [place] [phone] Cardiac pacemaker in situ [Z95.0] (Primary Dx); Paroxysmal atrial fibrillation (CMS/HCC) (HCC); Sick sinus syndrome (CMS/HCC) ([facility]) from Last 3 Months Allergies Active Allergy Reactions Criticality Noted Date [...] Noted Date Diagnosed Date Permanent atrial fibrillation ([facility]) 02/13/20 HFrEF (heart failure with re duced ejection fraction) ([facility]) 08/29/2022 Assessment & Plan (08/29/2022 9:31 [...] is to continue close follow-up with local cadastral engineer and therefore would like to discuss with [...] needed. Assessment & Plan (03/12/2017 2:39 PM TELEGRAPHIC TYPEWRITER INSTALLER): Patient has Xanax for p.r.n. use. She [...] his passing. She did see someone at [facility] for awhile. We discussed Senior renewal. She declines at the present time. She would like to continue to monitor her panic attacks and was instructed to use Xanax as previously prescribed on an as needed basis. Coronary artery disease invo [place]ving [place] coronary artery [place] heart 12/25/2016 Overview (04/19/2019): Status post PCI in June 2013 (RL). Normal Cardiolite in August 2014. Assessment & Plan (08/29/2022 9:25 PM CDT): Denies any chest pain or anginal equivalent. Recent drop in her LVEF to 20% from 40% with unclear etiology. Continue aspirin, metoprolol and Crestor. Would like to discuss with her local cadastral engineer about additional ischemic workup as she plans [...] given Assessment & Plan (03/12/2017 2:37 PM TELEGRAPHIC TYPEWRITER INSTALLER): Blood pressure is slightly elevated during office [...] is less than 70. Will discuss local cadastral engineer about statin therapy and possible PCSK9 inhibitor. Assessment & Plan (07/29/2018 4:47 AM CDT): Not on statin Osteoarthritis 01/20/2013 Overview (06/27/2016): Osteoarthritis Resolved Problems Problem Noted Date Diagnosed Date Resolved Date Chest pain 09/29/2018 12/24/2018 Hypertensive urgency 09/29/2018 019 Anxiety 09/29/2018 12/24/2018 Sick sinus syndrome ([facility]) 09/14/2018 02/13/2024 Overview (04/19/2019): Status post Biotronik Edora 8 DRT on 29 Jul 2018 (RL). New atrial lead on 14 September 2018 (DG). Diarrhea of infectious origin 07/29/2018 12/24/2018 NSTEMI (non-ST elevated myoc ardial infarction) ([facility]/HCC) 07/29/2018 02/01/2020 Assessment & Plan (07/29/2018 4:52 AM CDT): Patient currently in AFib with RVR. Suspect elevated troponins are due to demand ischemia. Will continue on telemetry monitoring Trend troponins Repeat EKG in a.m. Cardiology consult Keep the patient NPO Patient currently on Eliquis oral anticoagulation Patient denies any chest pain Atrial fibrillation with rap id ventricular response ([facility]) 09/25/2017 02/01/2020 Assessment & Plan (07/29/2018 4:51 AM CDT): Continue with amiodarone drip. Patient completed a dose of digoxin. Cardiology consult in a.m. Will obtain echo cardiac in a.m. Telemetry monitoring Restart Eliquis Cough 03/12/2017 06/24/2017 Assessment & Plan (03/12/2017 2:39 PM TELEGRAPHIC TYPEWRITER INSTALLER): Influenza A negative influenza B negative. Sore throat 03/12/2017 06/24/2017 Assessment & Plan (03/12/2017 2:39 PM TELEGRAPHIC TYPEWRITER INSTALLER): Rapid strep negative. Viral URI with cough 03/12/2017 018 Assessment & Plan (03/12/2017 2:40 PM TELEGRAPHIC TYPEWRITER INSTALLER): Humidification, fluids, and rest were recommended. Patient [...] any ill side effects. Paroxysmal atrial fibrillation ([facility]) 12/25/2016 02/13/2024 Assessment & Plan (08/29/2022 9:26 PM CDT): In normal rhythm today. Continue metoprolol and Eliquis. Assessment & Plan (07/23/2019 11:05 AM CDT): Routinely follows-up with at [facility]. NSR today in office. Cnt. Eliquis for anticoagulation Assessment & Plan (03/12/2017 2:37 PM TELEGRAPHIC TYPEWRITER INSTALLER): Patient will continue routine follow-up with Dr. Pennie pierre and local cadastral engineer as recommended. She reports compliance with her [...] (06/28/2016): PRECORDIAL PAIN Nausea in adult 12/24/2018 Immunizations Name Administration Dates Next Due Influenza, Unspecified 01/31/2020(Deferr ed: Patient Refused),02/22/2019(Deferred: Patient Refused),02/15/2019(Deferred: Patient Refused - pt refused),12/22/2018(Deferred: Patient Refused),12/23/2017(Deferred: Patient Refused),12/22/2017(Deferred: Patient Refused),12/22/2017(Deferred: Patient Refused) Pneumococcal Conjugate, Unspecified 12/23/2017(D eferred: Patient Refused) Social History Tobacco Use Types Packs/Day Years [...] or relatives? Once a week 08/12/2022 Attends Confucianism Services Not on file 08/12 Active Member [...] Recorded Patient Health Questionnaire-2 Score 0 08/23/2022 [facility] [place] of Occupat ional Health - Occupational Stress [...] place to sleep or slept in a intermediate (including now)? No 08/12/2022 Personal Safety Answer Date Recorded Have you ever been in or are you currently in a harmful physical or emotional relationship or is someone making you feel afraid or unsafe? Denies 08/12/2022 Comments No Sex and Gender Information Value Date Recorded Sex Assigned at Not on file Legal Sex Female 11:18 AM TELEGRAPHIC TYPEWRITER INSTALLER Gender Identity Female 10/09/2022 9:08 AM CDT Sexual Orientation Choose not to disclose 2022 9:08 AM CDT Last Filed Vital Signs Vital Sign Reading Time Taken Comments Blood Pressure 104/60 02/13/2024 11:01 AM TELEGRAPHIC TYPEWRITER INSTALLER Pulse 66 02/13/2024 11:01 AM TELEGRAPHIC TYPEWRITER INSTALLER Temperature 36.4 ??C (97.6 ??F) 10/24/2022 11:50 AM C DT Respiratory Rate 18 10/24/2022 11:50 AM CDT Oxygen Saturation 98% 02/13/2024 11:01 AM TELEGRAPHIC TYPEWRITER INSTALLER Inhaled Oxygen Concentration - - Weight 65.8 kg (145 lb) 02/13/2024 11:01 AM TELEGRAPHIC TYPEWRITER INSTALLER Height 154.9 cm (5' 1 ) 02/13/2024 11:01 AM TELEGRAPHIC TYPEWRITER INSTALLER Body Mass Index 27.4 02/13/2024 11:01 AM TELEGRAPHIC TYPEWRITER INSTALLER Plan of Treatment Not on file Medical Devices Implanted Type Area Slot Operations Director Device Identifier Shelf Expiration Date Model / Serial / Lot Performance [employer]ronik Inc [id number] Endocardial Pacing Lead Promri Marcell Jt 45 - [id number] - [id number] Implanted:Qty: 1 on 07/29/2018 by Guanakito Holland MD at [facility] Lead Biotronik Inc 12/22/2019 [id number] / [id number] / Biotronik Inc [id number] Endocardial Pacing Lead Promri Solia T 53 - [id number] - [id number] Implanted:Qty: 1 on 07/29/2018 by Guanakito Holland MD at [facility] Lead Biotronik Inc 12/22/2019 [id number] / [id number] / Biotronik Inc [id number] Solia S 45cm Bipolar Active Fixation Lead Pacing Steroid Eluting - [id number] - [id number] Implanted:Qty: 1 on 09/14/2018 by Reynaldo Flannery DO at [facility] Lead Biotronik Inc [id number] 05/21/2020 [id number] / [id number] / [id number] Biotronik Inc [id number] Edora Promri 99f19o6.5mm 1 Chamber Rate Adaptive Unipolar Bipolar - [id number] - [id number] Implanted:Qty: 1 on 07/29/2018 by Guanakito Holland MD at [facility] Pacemaker Biotronik Inc 11/22/2019 [id number] / [id number] / Medtronic Cardiac Rhythm Mgmt [id number] Tyrx 2.7x2.5in Medium Envelope Absorbable Polyarylate Minocycline - [id number] Implanted:Qty: 1 on 09/14/2018 by Reynaldo Flannery DO at [facility] Med[employer]onic Inc 10/21/2018 [id number] / [id number] [employer] Perclose 6fr Vascular Closure 55414-23 - [id number] Implanted:Qty: 1 on 08/03/2022 at [facility] [employer] 03/23/2024 1267 3-03 / / [id number] Procedures Procedure Name Priority Date/Time Associated Diagnosis Comments EGFR Routine 03/08/2024 11:13 AM TELEGRAPHIC TYPEWRITER INSTALLER Cardiac pacemaker in situ HFrEF (heart failure with reduced ejection fraction) (CMS/HCC) (HCC) Permanent atrial fibrillation (CMS/HCC) (HCC) BASIC METABOLIC PANEL Routine 03/08/2024 11:13 AM TELEGRAPHIC TYPEWRITER INSTALLER Cardiac pacemaker in situ HFrEF (heart failure with reduced ejection fraction) (CMS/HCC) (HCC) Permanent atrial fibrillation (CMS/HCC) (HCC) DEVICE CHECK - REMOTE Routine 01/28/2024 11:02 AM TELEGRAPHIC TYPEWRITER INSTALLER Paroxysmal atrial fibrillation (CMS/HCC) (HCC) Sick sinus syndrome (CMS/HCC) (HCC) SCREENING MAMMOGRAM BILATERAL W OSCAR Schedule Routine, Read Routine (OP Routine) 04/06/2020 1:21 PM TELEGRAPHIC TYPEWRITER INSTALLER Visit for screening mammogram Essential hypertension Mixed hyperlipidemia COLONOSCOPY Routine 05/26/2019 HM DEXA SCAN Routine 11/14/2014 from Last 3 Months or Most Recently Relevant to Health Maintenance Results * eGFR (03/08/2024 11:13 AM TELEGRAPHIC TYPEWRITER INSTALLER) eGFR 68 >=60 mL/min/1. 73 m2 Comment: [...] reviewed 2021. Blood 03/08/2024 11:1 3 AM TELEGRAPHIC TYPEWRITER INSTALLER 03/08/2024 3:49 PM TELEGRAPHIC TYPEWRITER INSTALLER Mannie Hernandez MD LAB BLOOD ORDERABLES Fin al Result ANDREW DAWN [address] [address] Department [place] [address] * Basic metabolic panel (03/08/2024 11:13 AM TELEGRAPHIC TYPEWRITER INSTALLER) Sodium 143 135 - 145 mmol/L Potassium, pl 3.5 3.3 - 4.9 mmol/L CERNER Chloride 103 97 - 110 mmol/L [facility] CO2 30 22 - 32 mmol/L [facility] Anion gap 10 2 - 15 mmol/L [facility] BUN 12 6 - 25 mg/dL [facility] Creatinine 0.85 0.60 - 1.10 mg/dL [facility] Glucose 135 70 - 199 mg/dL [facility] Comment: Interpretive Data Fasting glucose [...] 2022. Calcium 9.3 8.5 - 10.3 mg/dL [facility] Blood 03/08/2024 11:1 3 AM TELEGRAPHIC TYPEWRITER INSTALLER 03/08/2024 3:49 PM TELEGRAPHIC TYPEWRITER INSTALLER Mannie Hernandez MD LAB BLOOD ORDERABLES Scottie al Result ANDREW DAWN [address] [address] Department [place] [address] * DEVICE CHECK - REMOTE (01/28/2024 11:02 AM TELEGRAPHIC TYPEWRITER INSTALLER) Anatomical Region Laterality Modality Other Narrative 02/05/2024 12:55 PM TELEGRAPHIC TYPEWRITER INSTALLER Biotronik Dual Pacemaker. Dx; SSS, Afib. DOI 07/29/2018-Dr Holland. RA Lead replaced 09/14/18. AV Node Ablation 12/2018. Biotronik remote monitoring. Routine VVI Pacemaker Remote. Transmission attached. Battery status-Ok, 50% remaining to LEANA. Stable lead impedances, pacing and sensing thresholds. Presenting rhythm: Vpaced. PSYCHIATRIC RN-88 %. No Ventricular arrhythmias detected. ?? Medication: Eliquis, Toprol XL. Office pacemaker f/u in 9-12 months. Biotronik remote f/u 05/04/2024. Merry Cavanaugh RN us Mannie Hernandez MD CV CARDIAC SERVICES PROC EDURES Final Result * Screening Mammogram Bilateral W Oscar (04/06/2020 1:21 PM TELEGRAPHIC TYPEWRITER INSTALLER) Anatomical Region Laterality Modality Breast Bilateral Mammography 04/06/2020 2:09 PM TELEGRAPHIC TYPEWRITER INSTALLER Impressions 04/06/2020 3:13 PM TELEGRAPHIC TYPEWRITER INSTALLER There is no mammographic evidence of malignancy. A 1 year screening mammogram is recommended. BI-RADS: 2 - Benign. The patient will be entered into a reminder system with a target due date of 1 year for her next mammogram. Electronically signed by: Micaela Jang MD Narrative 04/06/2020 3:13 PM TELEGRAPHIC TYPEWRITER INSTALLER EXAMINATION: SCREENING MAMMOGRAM BILATERAL W OSCAR ORDERING [...] There has been no suspicious interval change. us Ryan Castrejon MD IMG MAMMO PROCEDURES Final Res ult * Colonoscopy (05/26/2019) Anatomical Region Laterality Modality Other us Historical Provider ENDOSCOPY PROCEDURES Roshni l Result * DEXA SCAN (11/14/2014) DEXA Scan Abnormal Comment:Osteopenia us Historical Provider HEALTH MAINTENANCE Final Result from Last 3 Months or Most Recently Relevant to Health Maintenance Insurance MEDICARE [facility] MEDICARE [facility] MEDICARE SUPPLEMENT MEDICARE [facility] MEDICARE SUPPLEMENT MEDICARE [facility] Advance Directives For more information, please contact: [phone] * LIMITED - No CPR (Latest Code [...] 11:36 AM 10/19/2019 7:30 PM Care Teams Talcer Relationship Specialty Start Date End Date Jaleel Mcgovern MD PCP - General Family Practice 07/18/22 Reynaldo Flannery DO Consulting Physician Cardiology 09/26/17 Guanakito Holland MD Consulting Physician Cardiovascular Disease 07/29/18
--- OUTSIDE RECORDS SUMMARY | 2024-04-11 06:34 | XMS_ITS | Encounter Summary ---
Author Organization [facility] Address [address] [place] [address] Care Team Providers Care Lead Technical Writer Name Role Phone Reynaldo Flannery DO Unavailable [phone] Guanakito Holland MD Unavailable [phone] Jaleel Mcgovern MD Primary Care Provider [phone] Reason for Visit * Cardiology (Routine) - Closed Specialty Diagnoses / Procedures Referred By Contac t Referred To Contact Cardiology Diagnoses Paroxysmal atrial fibrillation (CMS/HCC) (HCC) Sick sinus syndrome (CMS/HCC) (HCC) Procedures DEVICE CHECK - REMOTE Mannie Hernandez MD [address] [facility] [address] [place] [address] Phone: tel: fax: [facility] Referral ID Status Reason Start Date Expiration Date Visits Re quested Visits Authorized [id number] Closed 04/15/2023 10/13/2024 1 1 Encounter Details Date Type Department Care Team (Latest Contact Info) Description 01/27/2024 9:30 AM LINUX ADMIN ENGINEER Ancillary Procedure [facility] Cardiology [address] [place] [address] [place] [phone] Cardiac pacemaker in situ [Z95.0] (Primary Dx); Paroxysmal atrial fibrillation (CMS/HCC) (HCC); Sick sinus syndrome (CMS/HCC) (HCC) Social History [...] Patient Health Questionnaire-2 Score 0 08/23/2022 [facility] [place] of Occupat ional Health - Occupational Stress [...] place to sleep or slept in a care home (including now)? No 08/12/2022 Personal Safety Answer Date Recorded Have you ever been in or are you currently in a harmful physical or emotional relationship or is someone making you feel afraid or unsafe? Denies 08/12/2022 Comments No Sex and Gender Information Value Date Recorded Sex Assigned at Not on file Legal Sex Female 11:18 AM LINUX ADMIN ENGINEER Gender Identity Female 10/09/2022 9:08 AM CDT Sexual Orientation Choose not to disclose 2022 9:08 AM CDT documented as of this encounter Plan of Treatment Not on file documented as of this encounter Procedures Procedure Name Priority Date/Time Associated Diagnosis Comments DEVICE CHECK - REMOTE Routine 01/28/2024 11:02 AM LINUX ADMIN ENGINEER Paroxysmal atrial fibrillation (CMS/HCC) (HCC) Sick sinus syndrome (CMS/HCC) (HCC) documented in this encounter Results * DEVICE CHECK - REMOTE (01/28/2024 11:02 AM LINUX ADMIN ENGINEER) Anatomical Region Laterality Modality Other Narrative 02/05/2024 12:55 PM LINUX ADMIN ENGINEER Biotronik Dual Pacemaker. Dx; SSS, Afib. DOI 07/29/2018-Dr Holland. RA Lead replaced 09/14/18. AV Node Ablation 12/2018. Biotronik remote monitoring. Routine VVI Pacemaker Remote. Transmission attached. Battery status-Ok, 50% remaining to LEANA. Stable lead impedances, pacing and sensing thresholds. Presenting rhythm: Vpaced. STORE RECEIVING CLERK-88 %. No Ventricular arrhythmias detected. ?? Medication: Eliquis, Toprol XL. Office pacemaker f/u in 9-12 months. Biotronik remote f/u 05/04/2024. Merry Cavanaugh RN Mannie Hernandez MD CV CARDIAC SERVICES PROC EDURES Final Result documented in this encounter Visit Diagnoses Diagnosis Cardiac pacemaker in situ [Z95.0]- Primary Cardiac pacemaker in situ Paroxysmal atrial fibrillation (CMS/HCC) (HCC) Atrial fibrillation Sick sinus syndrome (CMS/HCC) (HCC) Sinoatrial node dysfunction documented in this encounter Care Teams Lead Technical Writer Relationship Specialty Start Date End Date Jaleel Mcgovern MD PCP - General Family Practice 07/18/22 Reynaldo Flannery DO Consulting Physician Cardiology 09/26/17 Guanakito Holland MD Consulting Physician Cardiovascular Disease 07/29/18 documented as of this encounter
--- OUTSIDE RECORDS SUMMARY | 2024-04-11 06:34 | XMS_ITS | Encounter Summary ---
Author Organization [facility] Address [address] [place] [address] Care Team Providers Care Digital Sales Assistant Name Role Phone Reynaldo Flannery DO Unavailable [phone] Guanakito Holland MD Unavailable [phone] Jaleel Mcgovern MD Primary Care Provider [phone] Encounter Details Date Type Department Care Team (Late st Contact Info) Description 08/06/2023 Telephone [facility] Cardiology [address] [phone] Mannie Hernandez MD [address] [facility] [address] [facility] [address] [place] [address] Social History Tobacco Use Types [...] or relatives? Once a week 08/12/2022 Attends Hinduism Services Not on file 08/12 Active Member [...] Recorded Patient Health Questionnaire-2 Score 0 08/23/2022 [facility] [place] of Occupat ional Health - Occupational Stress [...] on file Legal Sex Female 11:18 AM MOTION PICTURES CARTOONIST Gender Identity Female 10/09/2022 9:08 AM CDT Sexual Orientation Choose not to disclose 2022 9:08 AM CDT documented as of this encounter Miscellaneous Notes * Telephone Encounter - Lizbet Cerda MA - 08/29/2023 4:17 PM CDT Patient assistance for Kareem has been approved from 08/29/23 to 03/23/24. * Telephone Encounter - Lizbet Cerda MA - 08/21/2023 1:29 PM CDT Patient is not eligible for patient assistance because documentation of 3% out of pocket prescription expenses, based on household adjusted gross income, not met. Called and left vmail. * Telephone Encounter - Lizbet Cerda MA - 08/07/2023 3:57 PM CDT Patient brought in missing paperwork for patient assistance. Faxed all completed info over and confirmation received. * Telephone Encounter - Lizbet Cerda MA - 08/06/2023 12:12 PM CDT Left message to inform patient that we're missing info to complete Eliquis Patient Assistance. Missing info is out of pocket prescription cost, Proof of income, and Patient Agreement signed and dated. documented in this encounter Plan of Treatment Not on file documented as of this encounter Visit Diagnoses Not on filedocumented in this encounter Care Teams Digital Sales Assistant Relationship Specialty Start Date End Date Jaleel Mcgovern MD PCP - General Family Practice 07/18/22 Reynaldo Flannery DO Consulting Physician Cardiology 09/26/17 Guanakito Holland MD Consulting Physician Cardiovascular Disease 07/29/18 documented as of this encounter
--- OUTSIDE RECORDS SUMMARY | 2024-04-11 06:34 | XMS_ITS | Encounter Summary ---
Author Organization [facility] Healthcare Address [address] [place] [address] Care Team Providers Care Special Police Name Role Phone Reynaldo Flannery DO Unavailable [phone] Guanakito Holland MD Unavailable Jaleel Mcgovern MD Primary Care Provider [phone] Reason for Referral * Cardiology (Routine) - Authorized Specialty Diagnoses / Procedures Referred By Contac t Referred To Contact Cardiology Diagnoses Paroxysmal atrial fibrillation (CMS/HCC) (HCC) Sick sinus syndrome (CMS/HCC) (HCC) Procedures DEVICE CHECK - REMOTE Mannie Hernandez MD [address] [facility] [address] [place] [id number] Phone: tel: fax: [facility] Referral ID Status Reason Start Date Expiration Date V isits Requested Visits Authorized [id number] Authorized 04/15/2023 10/13/2024 1 1 CE WORKFORCE PLANNER * Cardiology (Routine) - Authorized Specialty Diagnoses / Procedures Referred By Contac t Referred To Contact Cardiology Diagnoses Paroxysmal atrial fibrillation (CMS/HCC) (HCC) Sick sinus syndrome (CMS/HCC) (HCC) Procedures DEVICE CHECK - REMOTE Mannie Hernandez MD [address] [place] [address] Phone: tel: fax: [facility] Referral ID Status Reason Start Date Expiration Date V isits Requested Visits Authorized [id number] Authorized 04/15/2023 10/13/2024 1 1 CE WORKFORCE PLANNER * Cardiology (Routine) - Closed Specialty Diagnoses / Procedures Referred By Contac t Referred To Contact Cardiology Diagnoses Paroxysmal atrial fibrillation (CMS/HCC) (HCC) Sick sinus syndrome (CMS/HCC) (HCC) Procedures DEVICE CHECK - REMOTE Mannie Hernandez MD [address] [place] [address] Phone: tel: fax: [facility] Referral ID Status Reason Start Date Expiration Date Visits Re quested Visits Authorized [id number] Closed 04/15/2023 10/13/2024 1 1 CE WORKFORCE PLANNER Encounter Details Date Type Department Care Team (Late st Contact Info) Description 04/15/2023 Orders Only [facility] Cardiology [address] [place] [phone] Mannie Hernandez MD [address] [place], [place] [id number] Paroxysmal atrial fibrillation (CMS/HCC) (HCC) (Primary Dx); Sick sinus syndrome (CMS/HCC) (HCC) Social History [...] or relatives? Once a week 08/12/2022 Attends [employer] Not on file 08/12 Active Member [...] Patient Health Questionnaire-2 Score 0 08/23/2022 [facility] - Occupational [...] on file Legal Sex Female 11:18 AM OFFICE WORKFORCE PLANNER Gender Identity Female 10/09/2022 9:08 AM CDT Sexual Orientation Choose not to disclose 2022 9:08 AM CDT documented as of this encounter Plan of Treatment Scheduled Orders Name Type Priority Associated Diagnoses Orde r Schedule DEVICE CHECK - REMOTE Cardiac Services Routine Paroxysmal atrial fibrillation (CMS/HCC) (HCC) Sick sinus syndrome (CMS/HCC) (HCC) Expected: 10/14/2023, Expires: 03/23/2030 DEVICE CHECK - REMOTE Cardiac Services Routine Paroxysmal atrial fibrillation (CMS/HCC) (HCC) Sick sinus syndrome (CMS/HCC) (HCC) Expected: 01/13/2024, Expires: 03/23/2030 documented as of this encounter Results * DEVICE CHECK - REMOTE (01/28/2024 11:02 AM OFFICE WORKFORCE PLANNER) Anatomical Region Laterality Modality Other Narrative 02/05/2024 12:55 PM OFFICE WORKFORCE PLANNER Biotronik Dual Pacemaker. Dx; SSS, Afib. DOI 07/29/2018-Dr Holland. RA Lead replaced 09/14/18. AV Node Ablation 12/2018. Biotronik remote monitoring. Routine VVI Pacemaker Remote. Transmission attached. Battery status-Ok, 50% remaining to LEANA. Stable lead impedances, pacing and sensing thresholds. Presenting rhythm: Vpaced. MANUFACTURING WEAVER-88 %. No Ventricular arrhythmias detected. ?? Medication: Eliquis, Toprol XL. Office pacemaker f/u in 9-12 months. Biotronik remote f/u 05/04/2024. Merry Cavanaugh, RN Manine Hernandez MD [facility] CARDIAC SERVICES PROC EDURES Final Result documented in this encounter Visit Diagnoses Diagnosis Paroxysmal atrial fibrillation (CMS/HCC) (HCC)- Primary Atrial fibrillation Sick sinus syndrome (CMS/HCC) (HCC) Sinoatrial node dysfunction Cardiac pacemaker in situ [Z95.0]- Primary Cardiac pacemaker in situ Paroxysmal atrial fibrillation (CMS/HCC) (HCC) Atrial fibrillation Sick sinus syndrome (CMS/HCC) (HCC) Sinoatrial node dysfunction documented in this encounter Care Teams Special Police Relationship Specialty Start Date End Date Jaleel Mcgovern MD PCP - General Family Practice 07/18/22 Reynaldo Flannery DO Consulting Physician Cardiology 09/26/17 Guanakito Holland MD Consulting Physician Cardiovascular Disease 07/29/18 documented as of this encounter
--- OUTSIDE RECORDS SUMMARY | 2024-04-11 06:34 | XMS_ITS | Encounter Summary ---
Author Organization [facility] Healthcare Address [address] [place] [address] Care Team Providers Care Inserter Name Role Phone Reynaldo Flannery DO Unavailable [phone] Guanakito Holland MD Unavailable [phone] Jaleel Mcgovern MD Primary Care Provider [phone] Reason for Referral * Cardiology (Routine) - Pending Review Specialty Diagnoses / Procedures Referred By Contac t Referred To Contact Cardiology Diagnoses Paroxysmal atrial fibrillation (CMS/HCC) (HCC) Sick sinus syndrome (CMS/HCC) (HCC) HFrEF (heart failure with reduced ejection fraction) (CMS/HCC) (HCC) Procedures DEVICE CHECK - REMOTE Mannie Hernandez MD [address] [place] [address] Phone: tel: fax: [facility] Referral ID Status Reason Start Date Expiration Date V isits Requested Visits Authorized [id number] Pending Review 01/28/2024 07/27/2025 1 1 IDE SALES ADVERTISING EXECUTIVE * Cardiology (Routine) - Pending Review Specialty Diagnoses / Procedures Referred By Contac t Referred To Contact Cardiology Diagnoses Paroxysmal atrial fibrillation (CMS/HCC) (HCC) Sick sinus syndrome (CMS/HCC) (HCC) HFrEF (heart failure with reduced ejection fraction) (CMS/HCC) (HCC) Procedures DEVICE CHECK - REMOTE Mannie Hernandez MD [address] [place] [address] Phone: tel: fax: [facility] Referral ID Status Reason Start Date Expiration Date V isits Requested Visits Authorized [id number] Pending Review 01/28/2024 07/27/2025 1 1 IDE SALES ADVERTISING EXECUTIVE * Cardiology (Routine) - Pending Review Specialty Diagnoses / Procedures Referred By Contrhina t Referred To Contact Cardiology Diagnoses Paroxysmal atrial fibrillation (CMS/HCC) (HCC) Sick sinus syndrome (CMS/HCC) (HCC) HFrEF (heart failure with reduced ejection fraction) (CMS/HCC) (HCC) Procedures DEVICE CHECK - REMOTE Mannie Hernandez MD [address] [place] [address] Phone: tel: fax: [facility] Referral ID Status Reason Start Date Expiration Date V isits Requested Visits Authorized [id number] Pending Review 01/28/2024 07/27/2025 1 1 IDE SALES ADVERTISING EXECUTIVE Encounter Details Date Type Department Care Team (Late st Contact Info) Description 01/28/2024 Orders Only [facility] Cardiology [address] [place] [phone] Mannie Hernandez MD [address] [place] [address] Paroxysmal atrial fibrillation (CMS/HCC) (HCC) (Primary Dx); Sick sinus syndrome (CMS/HCC) (HCC); HFrEF (heart failure with reduced ejection fraction) (CMS/HCC) (HCC) Social History Tobacco Use Types [...] or relatives? Once a week 08/12/2022 Attends [employer] Not on file 08/12 Active Member [...] Recorded Patient Health Questionnaire-2 Score 0 08/23/2022 [facility] - Occupational Stress [...] place to sleep or slept in a senior care (including now)? No 08/12/2022 Personal Safety Answer Date Recorded Have you ever been in or are you currently in a harmful physical or emotional relationship or is someone making you feel afraid or unsafe? Denies 08/12/2022 Comments No Sex and Gender Information Value Date Recorded Sex Assigned at Not on file Legal Sex Female 11:18 AM OUTSIDE SALES ADVERTISING EXECUTIVE Gender Identity Female 10/09/2022 9:08 AM CDT Sexual Orientation Choose not to disclose 2022 9:08 AM CDT documented as of this encounter Plan of Treatment Scheduled Orders Name Type Priority Associated Diagnoses Orde r Schedule DEVICE CHECK - REMOTE Cardiac Services Routine Paroxysmal atrial fibrillation (CMS/HCC) (HCC) Sick sinus syndrome (CMS/HCC) (HCC) HFrEF (heart failure with reduced ejection fraction) (CMS/HCC) (HCC) Expected: 04/28/2024, Expires: 03/23/2030 DEVICE CHECK - REMOTE Cardiac Services Routine Paroxysmal atrial fibrillation (CMS/HCC) (HCC) Sick sinus syndrome (CMS/HCC) (HCC) HFrEF (heart failure with reduced ejection fraction) (CMS/HCC) (HCC) Expected: 07/28/2024, Expires: 03/23/2030 DEVICE CHECK - REMOTE Cardiac Services Routine Paroxysmal atrial fibrillation (CMS/HCC) (HCC) Sick sinus syndrome (CMS/HCC) (HCC) HFrEF (heart failure with reduced ejection fraction) (CMS/HCC) (HCC) Expected: 10/27/2024, Expires: 03/23/2030 documented as of this encounter Visit Diagnoses Diagnosis Paroxysmal atrial fibrillation (CMS/HCC) (HCC)- Primary Atrial fibrillation Sick sinus syndrome (CMS/HCC) (HCC) Sinoatrial node dysfunction HFrEF (heart failure with reduced ejection fraction) (CMS/HCC) (HCC) documented in this encounter Care Teams Inserter Relationship Specialty Start Date End Date Jaleel Mcgovern MD PCP - General Family Practice 07/18/22 Reynaldo Flannery DO Consulting Physician Cardiology 09/26/17 Guanakito Holland MD Consulting Physician Cardiovascular Disease 07/29/18 documented as of this encounter
--- OUTSIDE RECORDS SUMMARY | 2024-04-11 06:35 | XMS_ITS | Encounter Summary ---
Author Organization [facility] Home Care Servic es Address [address] [place] [address] Phone Care Team Providers Care Substance Addiction Coordinator Name Role Phone Reynaldo Flannery DO Unavailable [phone] Guanakito Holland MD Unavailable [phone] Jaleel Mcgovern MD Primary Care Provider [phone] Reason for Visit * Auth/Cert (Routine) Specialty Diagnoses / Procedures Referred By Contac t Referred To Contact Referral ID Status Reason Start Date Expiration Date Visits Re quested Visits Authorized [id number] 1 1 Encounter Details Date Type Department Care Team (Late st Contact Info) Description 09/17/2022 3:30 PM CDT Home Care Visit [facility] Home Health [address] [address] [address] [place] [address] Litzy Zaragoza, REGIONAL CLIMATE CHANGE ANALYST REGIONAL CLIMATE CHANGE ANALYST HOME VISIT Social History Tobacco Use Types Packs/Day Years Used Date Smoking Tobacco: Former Cigarettes Q uit: 1975 Smokeless Tobacco: Never Alcohol Use Standard Drinks/Week Comments No 0 (1 standard drink = 0.6 oz pur e alcohol) Social Connection and Isolation Panel [NHANES] A nswer Date Recorded In a typical week, how many times do you talk on the phone with family, friends, or neighbors? Three times a week 08/12/2022 How often do you get togethe r with friends or relatives? Once a week 08/12/2022 Attends [employer] Not on file 08/12 Active Member [...] Recorded Patient Health Questionnaire-2 Score 0 08/23/2022 [facility] - Occupational [...] place to sleep or slept in a fdc (including now)? No 08/12/2022 Personal Safety Answer Date Recorded Have you ever been in or are you currently in a harmful physical or emotional relationship or is someone making you feel afraid or unsafe? 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 Gender Identity Female 10/09/2022 9:08 AM CDT Sexual Orientation Choose not to disclose 2022 9:08 AM CDT documented as of this encounter Last Filed Vital Signs Vital Sign Reading Time Taken Comments Blood Pressure 116/68 09/17/2022 4:03 PM CDT Pulse 60 09/17/2022 4:03 PM CDT Temperature 35.8 ??C (96.5 ??F) 09/17/2022 4:03 PM CD T Respiratory Rate 18 09/17/2022 4:03 PM CDT Oxygen Saturation 98% 09/17/2022 4:03 PM CDT Inhaled Oxygen Concentration - - Weight - - Height - - Body Mass Index - - documented in this encounter Miscellaneous Notes * Home Health Visit Narrative - Litzy Zaragoza SLP - 09/17/2022 3:[address] services provided this date for communication and swallowing including oral motor and airway protection exercises, review of safe swallow precautions, diet recommendation, and intelligibility strategies, and continued HEP development. Patient will benefit from further skilled ST servicesfor communication and swallowing including therapeutic exercise, education, and continued development of home exercise program to improve patient's ability to communicate functional information and to decrease risk of aspiration and aspiration pneumonia. * Home Health Plan for Next Visit - Litzy Zaragoza SLP - 09/17/2022 3:30 PM CDT Reason for today's visit: skilled ST services for communication and swallowing Discuss plan of care with patient and patient caregiver. Discharge planning: DC when goals are met or max potential is reached Plan for next visit: therex, education, HEP development documented in this encounter Plan of Treatment Not on file documented as of this encounter Visit Diagnoses Not on filedocumented in this encounter Home Health Visit - Care Plan Visit Details Visit Type -REGIONAL CLIMATE CHANGE ANALYST Home Visit Discipline -Speech Language Pathology Problems Problem Description Start Date Status Goals Interve ntions Homebound Status Disciplines: Skilled Disciplines Patient's homebound status 08/28/2022 Active 1 goal linked to scheduled/documen vickie intervention 1 goal intervention scheduled/documen vickie in this visit Monitor patient's vital signs every home health visit Disciplines: SN, PT, OT, REGIONAL CLIMATE CHANGE ANALYST, CARTON MACHINE OPERATOR, Skilled Disciplines Monitor patient's vital signs every home health visit. 08/28/2022 Active 1 goal linked to scheduled/documen vickie intervention 1 goal intervention scheduled/documen vickie in this visit Safety concerns Disciplines: Skilled Disciplines Alteration in safety 08/28/2022 Active 1 goal linked to scheduled/documen vickie intervention 2 goal interventions scheduled/documen vickie in this visit REGIONAL CLIMATE CHANGE ANALYST Impaired Swallowing Disciplines: Speech Language Pathology Impaired swallow with 09/05/2022 Active - 5 problem interventions scheduled/documen vickie in this visit REGIONAL CLIMATE CHANGE ANALYST oral motor problems Disciplines: Speech Language Pathology Review patient's current oral motor status and create plan. 09/05/2022 Active - 2 problem interventions scheduled/documen vickie in this visit Goals Goal Associated Problem Outcome Goal Met? Visit Notes Patient receives care at the most appropriate care setting Description: Patient receives care at the most appropriate care setting. Homebound Status No Measure vital signs during every home health visit during episode of care Description: Home shrimp peeling machine tender to measure vital signs during every home health visit during episode of care. Monitor patient's vital signs every home health visit No Demonstrate use of safety precautions Description: Patient/caregiver maintains safe home environment as evidenced by remaining free from injury and demonstrates use of safety precautions. Safety concerns No Interventions Intervention Associated Problem/Goal Status Variance Visit Notes Homebound Status Description: Patient is homebound due to recent CVA as evidenced by right sided weakness, unsteady gait,, balance deficits, impulsive, stairs to enter/exit, making leaving the home a considerable and taxing effort. Problem:Homebound Status Goal:Patient receives care at the most appropriate care setting Completed Patient is homebound due to recent CVA as evidenced by right sided weakness, unsteady gait,, balance deficits, impulsive, stairs to enter/exit, making leaving the home a considerable and taxing effort. Monitor Vital Signs Description: Monitor blood pressure, pulse, oxygen saturation, respirations Problem:Monitor patient's vital signs every home health visit Goal:Measure vital signs during every home health visit during episode of care Completed Instruct Fall Prevention Description: Instruct patient/caregiver in methods to prevent falls Problem:Safety concerns Goal:Demonstrate use of safety precautions Completed Assess safety Description: Assess patient safety Problem:Safety concerns Goal:Demonstrate use of safety precautions Completed Home Exercise Program (HEP) Description: Instruct patient/caregiver and perform HEP. Problem:REGIONAL CLIMATE CHANGE ANALYST Impaired Swallowing Completed Review and continued development of HEP for oral motor and airway protection exercises with patient and patient caregiver demonstrating comprehension. Evaluate swallow Description: Evaluate patient swallow function Problem:REGIONAL CLIMATE CHANGE ANALYST Impaired Swallowing Completed Patient reports decreased difficulty with swallowing liquids since previous visit, although patient continues to have difficulty with tougher texture solids. Instruct on diet with appropriate consistencies Description: Instruct patient/caregiver on diet with appropriate consistencies Problem:REGIONAL CLIMATE CHANGE ANALYST Impaired Swallowing Completed Review of diet recommendation for soft solids with added moisture, addressed patient specific questions regarding foods including rice, spaghetti, and soups. Recommended patient continue to avoid piecemeal texture foods (rice, hamburger, etc) and mixed consistency foods (cereal with milk, brothy soups) with patient and patient caregiver demonstating comprehension. Instruct appropriate strategies to prevent choking/aspiration Description: Instruct patient/caregiver on appropriate strategies to prevent choking / aspiration Problem:REGIONAL CLIMATE CHANGE ANALYST Impaired Swallowing Completed Review of safe swallow strategies including decreased rate, decreased bolus size, alternating liquids and solids, and sitting up straight during and 30 minutes following oral intake with patient and patient caregiver demonstrating comprehension. Instruct on swallowing exercises Description: Teach swallow exercises. Problem:REGIONAL CLIMATE CHANGE ANALYST Impaired Swallowing Completed Completed oral motor and airway protection exercises including lingual rotation, protrusion, and retraction, labial protrusion, retraction, and closure, cinthia, and CTAR with skilled v/v instruction provided as needed. Reviewed handout provided to patient and added comments to clarify which exercises patient is to complete, reminded patient and caregiver not to complete exercises directly prior to eating/drinking with patient and caregiver demonstrating comprehension. Home Exercise Program (HEP) Description: Instruct patient/caregiver and perform HEP. Problem:REGIONAL CLIMATE CHANGE ANALYST oral motor problems Completed Review and continued development of HEP for communication with patient and patient caregiver demonstrating comprehension. REGIONAL CLIMATE CHANGE ANALYST speech articulation disorder treatments Description: Therapeutic exercise. Problem:REGIONAL CLIMATE CHANGE ANALYST oral motor problems Completed Education and review of intelligibility strategies including decreased rate, spacing, phrasing, and overarticulation with patient demonstrating comprehension. Recommended patient read outloud and focus on using strategies with patient demonstrating comprehension. documented in this encounter Care Teams Substance Addiction Coordinator Relationship Specialty Start Date End Date Jaleel Mcgovern MD PCP - General Family Practice 07/18/22 Reynaldo Flannery DO Consulting Physician Cardiology 09/26/17 Guanakito Holland MD Consulting Physician Cardiovascular Disease 07/29/18 documented as of this encounter
--- OUTSIDE RECORDS SUMMARY | 2024-04-11 06:35 | XMS_ITS | Encounter Summary ---
Author Organization [facility] Home Care Serv[facility] es Address [address] [place] [address] Phone Care Team Providers Care Passenger Service Agent Name Role Phone Reynaldo Flannery DO Unavailable [phone] Guanakito Holland MD Unavailable [phone] Jaleel Mcgovern MD Primary Care Provider [phone] Reason for Visit * Reason Comments Weakness - Generalized * Auth/Cert (Routine) Specialty Diagnoses / Procedures Referred By Contac t Referred To Contact Referral ID Status Reason Start Date Expiration Date Visits Re quested Visits Authorized [id number] 1 1 Encounter Details Date Type Department Care Team (Late st Contact Info) Description 10/10/2022 11:00 AM CDT Home Care Visit [facility] Home Health [address] [address] [address] [place] [address] Lizbet Colbert PTA PT HOME VISIT Social History Tobacco Use Types [...] or relatives? Once a week 08/12/2022 [facility]ends [facility] Not on file 08/12 Active Member [...] Patient Health Questionnaire-2 Score 0 08/23/2022 [facility] of Occupat ional Health - Occupational Stress [...] place to sleep or slept in a mcc (including now)? No 08/12/2022 Personal Safety Answer Date Recorded Have you ever been in or are you currently in a harmful physical or emotional relationship or is someone making you feel afraid or unsafe? 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 Gender Identity Female 10/09/2022 9:08 AM CDT Sexual Orientation Choose not to disclose 2022 9:08 AM CDT documented as of this encounter Last Filed Vital Signs Vital Sign Reading Time Taken Comments Blood Pressure 122/72 10/10/2022 11:11 AM CDT Pulse 82 10/10/2022 11:11 AM CDT Temperature 36.8 ??C (98.3 ??F) 10/10/2022 11:11 AM C DT Respiratory Rate 18 10/10/2022 11:11 AM CDT Oxygen Saturation 93% 10/10/2022 11:11 AM CDT Inhaled Oxygen Concentration - - Weight - - Height - - Body Mass Index - - documented in this encounter Miscellaneous Notes * Home Health Plan for Next Visit - Lizbet Colbert PTA - 10/10/2022 11:03 AM CDT Reason for today's visit strength, balance, transfers, gait and safety training. Discuss plan of care with pt and daughter. Updated Watson, PT Discharge planning when goals are met, or pt has achieved max therapeutic benefit from Home Care PTservices. Plan for next visit to cont to progress HEP, strength, balance, gait and transfers to facilitate improved functional ability and mobility and to decrease fall risk. documented in this encounter Plan of Treatment Not on file documented as of this encounter Visit Diagnoses Not on filedocumented in this encounter Home Health Visit - Care Plan Visit Details Visit Type -PT Home Visit Discipline -Physical Therapy Problems Problem Description Start Date Status Goals Interve ntions Homebound Status Disciplines: Skilled Disciplines Patient's homebound status 08/28/2022 Active 1 goal linked to scheduled/documen vickie intervention 1 goal intervention scheduled/documen vickie in this visit Monitor patient's vital signs every home health visit Disciplines: SN, PT, OT, FARM EQUIPMENT MECHANIC APPRENTICE, SPLICING MACHINE OPERATOR AUTOMATIC, Skilled Disciplines Monitor patient's vital signs every home health visit. 08/28/2022 Active 1 goal linked to scheduled/documen vickie intervention 1 goal intervention scheduled/documen vickie in this visit Safety concerns Disciplines: Skilled Disciplines Alteration in safety 08/28/2022 Active 1 goal linked to scheduled/documen vickie intervention 2 goal interventions scheduled/documen vickie in this visit Pain Disciplines: Core Disciplines Alteration in comfort 08/28/2022 Active 1 goal linked to scheduled/documen vickie intervention 1 goal intervention scheduled/documen vickie in this visit PT Impaired Functional Mobility/Balance Disciplines: Physical Therapy Impaired functional mobility/balance 08/28/2022 Active - 3 problem interventions scheduled/documen vickie in this visit Goals Goal Associated Problem Outcome Goal Met? Visit Notes Patient receives care at the most appropriate care setting Description: Patient receives care at the most appropriate care setting. Homebound Status No Measure vital signs during every home health visit during episode of care Description: Home take away man to measure vital signs during every home health visit during episode of care. Monitor patient's vital signs every home health visit No Demonstrate use of safety precautions Description: Patient/caregiver maintains safe home environment as evidenced by remaining free from injury and demonstrates use of safety precautions. Safety concerns No Report that pain has been reduced or controlled Description: Patient/caregiver/family will verbalize satisfaction with the patients level of pain and symptom control. Pain No Interventions Intervention Associated Problem/Goal Status Variance [...] health visit during episode of care Completed Monitored patients blood pressure, pulse, oxygen saturation, temp, and respirations during session. Instruct Fall Prevention Description: Instruct patient/caregiver in methods to prevent falls Problem:Safety concerns Goal:Demonstrate use of safety precautions Completed Patient and/or caregiver on methods to prevent falls including: removal of throw rugs from the jacquelyn, maintaining pathway clear of tripping hazards and pets, using nightlights, keeping walking areas well lit, use of assistive device for safety, supervision for mobility including enter/exit the home and with stair mobility. Pt verbalized good understanding of instuctions and provides safe verbalization/return demonstration of the instructions. Assess safety Description: Assess patient safety Problem:Safety concerns Goal:Demonstrate use of safety precautions Completed Patient/Caregiver maintains safe enviroment as evident by remaining free from falls and demonstrates use of safety precautions. Instruct on pain management techniques Description: Instruct in pharmacologic and nonpharmacologic pain management techniques. Problem:Pain Goal:Report that pain has been reduced or controlled Completed Reviewed with Patient and Caregiver on pharmacologic and nonpharmacologic pain management techniques. Instructed pt to rest as needed, take medication as prescribed. Educated to call MD office or nurse triage in case of new or worsening pain. Patient/Caregiver verbalizes good understanding of instructions and provides safe verbalization/return demonstration of the instructions. Transfer training Description: Instruct patient/caregiver and perform transfer training. Problem:PT Impaired Functional Mobility/Balance Completed Pt. instructed on sit to stand transfers from with use of bilateral UE assist. Pt. demoed improved technique and understanding to complete transfers safely. pt completed without bilateral ue support and completed with good trunk flexion and anterior trunk flexion and anterior weight shift. Gait/Stair Training Description: Instruct patient/caregiver and perform gait/stair training. Problem:PT Impaired Functional Mobility/Balance Completed Pt. instructed on gait training outright t/o home with supervision assist. Pt completed gait training with a more relaxed and natural gait pattern initiation of right arm swing noted. pt completed gait with decreased toe clearance, step height and heelstrike bilaterally. noted pt with a more upright posture and controlled kimberly. completed gait around obstacles on the floor with emphasis on sharp turns and ability to clear the objects. pt completed with sba with pt clearing 8/10 of the objects and demoed one lob. Provided pt with verbal cues to improve technique with pt demonstrating understanding of the instruction/cues provided. Balance Training/Activities Description: Instruct patient/caregiver and perform balance training activities. Problem:PT Impaired Functional Mobility/Balance Completed Patient educated on balance challenges standing without UE support while performing static stance with decresaed tj eyes open and eyes closed, staggered stance eyes open all 30 sec holds x 1 bout each, side stepping, and with bilateral UE support with min assist while completing single leg stance and cga with marching in place. outright pt completed ipsilateral and contral lateral arm and leg lifts with min to mod assist to maintain cog. Outright pt completed alternating heel touches, alternating side steps, and alternating forward and lateral step with min assist to maintain cog. Provided verbal cues for posture and core contraction with improved balance noted. documented in this encounter Care Teams Passenger Service Agent Relationship Specialty Start Date End Date Jaleel Mcgovern MD PCP - General Family Practice 07/18/22 Reynaldo Flannery DO Consulting Physician Cardiology 09/26/17 Guanaikto Holland MD Consulting Physician Cardiovascular Disease 07/29/18 documented as of this encounter
--- OUTSIDE RECORDS SUMMARY | 2024-04-11 06:35 | XMS_ITS | Encounter Summary ---
Author Organization [facility] Home Care Serv[facility] es Address [address] [place] [address] Phone Care Team Providers Care Beverage Inspection Machine Tender Name Role Phone Reynaldo Flannery DO Unavailable [phone] Guanakito Holland MD Unavailable [phone] Jaleel Mcgovern MD Primary Care Provider [phone] Reason for Visit * Reason Comments Extremity Weakness * Auth/Cert (Routine) Specialty Diagnoses / Procedures Referred By Contac t Referred To Contact Referral ID Status Reason Start Date Expiration Date Visits Re quested Visits Authorized [id number] 1 1 Encounter Details Date Type Department Care Team (Late st Contact Info) Description 09/12/2022 8:30 AM CDT Home Care Visit [facility] Home Health [address] [address] [address] [place] [address] Keisha Strauss COTA OT HOME VISIT Social History Tobacco Use Types [...] or relatives? Once a week 08/12/2022 Attends [employer] [facility] Not on file 08/12 Active Member [...] Questionnaire-2 Score 0 08/23/2022 [facility] of Occupat ional Health - Occupational [...] place to sleep or slept in a skilled nursing (including now)? No 08/12/2022 Personal Safety Answer Date Recorded Have you ever been in or are you currently in a harmful physical or emotional relationship or is someone making you feel afraid or unsafe? Denies 08/12/2022 Comments No Sex and Gender Information Value Date Recorded Sex Assigned at Not on file Legal Sex Female 11:18 AM DAY CARE AIDE Gender Identity Female 10/09/2022 9:08 AM CDT Sexual Orientation Choose not to disclose 2022 9:08 AM CDT documented as of this encounter Last Filed Vital Signs Vital Sign Reading Time Taken Comments Blood Pressure 102/64 09/12/2022 8:38 AM CDT Pulse 51 09/12/2022 8:38 AM CDT Temperature 35.9 ??C (96.6 ??F) 09/12/2022 8:38 AM CD T Respiratory Rate 18 09/12/2022 8:38 AM CDT Oxygen Saturation 95% 09/12/2022 8:38 AM CDT Inhaled Oxygen Concentration - - Weight - - Height - - Body Mass Index - - documented in this encounter Miscellaneous Notes * Home Health Plan for Next Visit - Keisha Strauss COTA - 09/12/2022 9:47 AM CDT Reason for today's visit: to instruct in 9-hole peg assessment, UE HEP, hand exercise, turntable worker strengthening/FMC, and toileting to instruct in homework to support ADL function. Discuss plan of care with: pt and dtr. Discharge planning: to self with family assist when OT goals have been met or max potential has been reached. Plan for next visit: UE HEP and dressing. Pt and dtr in agreement with POT. documented in this encounter Plan of Treatment Not on file documented as of this encounter Visit Diagnoses Not on filedocumented in this encounter Home Health Visit - Care Plan Visit Details Visit Type -OT Home Visit Discipline -Occupational Therapy Problems Problem Description Start Date Status Goals Interve ntions Homebound Status Disciplines: Skilled Disciplines Patient's homebound status 08/28/2022 Active 1 goal linked to scheduled/docume nted intervention 1 goal intervention scheduled/documen vickie in this visit Monitor patient's vital signs every home health visit Disciplines: SN, PT, OT, GRAPHITE GRINDER, RETORT FURNACE OPERATOR, Skilled Disciplines Monitor patient's vital signs every home health visit. 08/28/2022 Active 1 goal linked to scheduled/docume nted intervention 1 goal intervention scheduled/documen vickie in this visit Safety concerns Disciplines: Skilled Disciplines Alteration in safety 08/28/2022 Active 1 goal linked to scheduled/docume nted intervention 2 goal interventions scheduled/documen vickie in this visit Pain Disciplines: Core Disciplines Alteration in comfort 08/28/2022 Active 1 goal linked to scheduled/docume nted intervention 1 goal intervention scheduled/documen vickie in this visit OT Activity Tolerance/Energy Conservation Disciplines: Occupational Therapy Impaired activity tolerance for functional activity 08/30/2022 Active - 1 problem intervention scheduled/documen vickie in this visit OT Impaired UE Function and/or Fine Motor Skills Disciplines: Occupational Therapy Impaired functional use of upper extremity 08/30/2022 Active - 2 problem interventions scheduled/documen vickie in this visit OT Impaired Functional Mobility/Balance Disciplines: Occupational Therapy Impaired functional mobility/balance 08/30/2022 Active - 2 problem interventions scheduled/documen vickie in this visit OT Impaired ADLs Disciplines: Occupational Therapy Impaired independence in self-care, ADLs. 08/30/2022 Active - 1 problem intervention scheduled/documen vickie in this visit Goals Goal Associated Problem Outcome Goal Met? Visit Notes Patient receives care at the most appropriate care setting Description: Patient receives care at the most appropriate care setting. Homebound Status No Measure vital signs during every home health visit during episode of care Description: Home file clerk data entry to measure vital signs during every home [...] concerns Goal:Demonstrate use of safety precautions Completed Ed patient/caregiver in methods to prevent falls; keeping pathway well lit, free from clutter/obstacles, removal of throw rugs, and walker safety by use of balance principles, body alignment, keeping head in neutral, and elbows near the waist to reduce fall risk. Pt/caregiver verbalized understanding. Pt able to perform functional mobility to/from bathroom using fall prevention methods w/gait belt and ww, CGA. Assess safety Description: Assess patient safety Problem:Safety concerns Goal:Demonstrate use of safety precautions Scheduled Instruct on pain management techniques Description: Instruct in pharmacologic and nonpharmacologic pain management techniques. Problem:Pain Goal:Report that pain has been reduced or controlled Completed Pt made no c/o pain. Energy Conservation Education Description: Instruct patient/caregiver in techniques for improved activity tolerance Problem:OT Activity Tolerance/Energy Conservation Completed Pt tends to crane and hold her breath with activities. Ed in use of energy conservation (EC) for pacing, breathing and use of rest breaks during exercise and daily occupations with good understanding and follow through. Home Exercise Program (HEP) Description: Instruct patient/caregiver and perform HEP. Problem:OT Impaired UE Function and/or Fine Motor Skills Completed Pt ed in therepeutic exercise to include BUE AROM x 10 reps, shoulder shrugs, scapular retractions, active shoulder composite rotations, horizontal add/abd and hand exercise with focus on flexibility. Pt ed in AROM hand HEP; slow/gentle dip/pip/mcp flexion/ext/add/abd/s erial opposition to improve flexibility for ADLs and FMC for daily occupations with good understanding and F+ return demo. Pt ed in use of Theraband flexbar (yellow) for shoulder add/abd and wrist flex/ext to improve cardiovascular endurance, gross and fine motor control. Pt voiced understanding with good return demo. Pt completed FMC task to sort 2 x2 magnetic squares with F+ return demo to improve coordination of R hand for dressing tasks. Therapeutic Exercise Description: Perform and progress therapeutic exercise. Problem:OT Impaired UE Function and/or Fine Motor Skills Completed Provided pt with 9-hole peg test with the following results: R hand (dominant) affected side 2 minutes 10.84, L hand 21.92 sec. Average for females in her age group: R hand=22.49 sec, Lhand=24.11 sec. Note pts score for non-dominant L hand was better than average for her age group. Pt's PLOF = independent with ADLs. Pt is motivated to improve with excellent family support. Family has put together a range of activities to help pt improve. See also ADL and HEP for today's interventions. Transfer Training Description: Instruct patient/caregiver and perform transfer training. Problem:OT Impaired Functional Mobility/Balance Completed Pt ed in balance principles and proper tech for sit to stand, sofa, and toilet transfers to include scoot to front of seat, placement of hands and feet, and use of body dynamics, to reduce fall risk and caregiver burden. Patient verbalized understanding and good return demo, CGA without AD. Balance Activities Description: Balance Activities. Problem:OT Impaired Functional Mobility/Balance Completed See fall prevention. ADL Instruction Description: Instruct patient/caregiver for improved ADL performance. Problem:OT Impaired ADLs Completed Pt performs toileting and clothing mangement with supervision. documented in this encounter Care Teams Beverage Inspection Machine Tender Relationship Specialty Start Date End Date Jaleel Mcgovern MD PCP - General Family Practice 07/18/22 Reynaldo Flannery DO Consulting Physician Cardiology 09/26/17 Guanakito Holland MD Consulting Physician Cardiovascular Disease 07/29/18 documented as of this encounter
--- OUTSIDE RECORDS SUMMARY | 2024-04-11 06:35 | XMS_ITS | Encounter Summary ---
Author Organization [facility] Home Care Servic es Address [address] [place] [address] Phone Care Team Providers Care Computer Forensics Examiner Name Role Phone Reynaldo Flannery DO Unavailable [phone] Guanakito Holland MD Unavailable [phone] Jaleel Mcgovern MD Primary Care Provider [phone] Reason for Visit * Auth/Cert (Routine) Specialty Diagnoses / Procedures Referred By Contac t Referred To Contact Referral ID Status Reason Start Date Expiration Date Visits Re quested Visits Authorized [id number] 1 1 Encounter Details Date Type Department Care Team (Late st Contact Info) Description 10/03/2022 9:30 AM CDT Home Care Visit [facility] Home Health [address] [address] [address] [place] [address] Litzy Zraagoza, STONEWORKING BELT SANDER STONEWORKING BELT SANDER REASSESSMENT Social History Tobacco Use Types Packs/Day Years [...] or relatives? Once a week 08/12/2022 Attends Protestant Services Not on file 08/12 Active Member [...] Health Questionnaire-2 Score 0 08/23/2022 [facility]at ional [facility] - Occupational Stress Questionnaire Answer Date Recorded [...] place to sleep or slept in a usp (including now)? No 08/12/2022 Personal Safety Answer Date Recorded Have you ever been in or are you currently in a harmful physical or emotional relationship or is someone making you feel afraid or unsafe? Denies 08/12/2022 Comments No Sex and Gender Information Value Date Recorded Sex Assigned at Not on file Legal Sex Female 11:18 AM LITHODUPLICATOR OPERATOR Gender Identity Female 10/09/2022 9:08 AM CDT Sexual Orientation Choose not to disclose 2022 9:08 AM CDT documented as of this encounter Last Filed Vital Signs Vital Sign Reading Time Taken Comments Blood Pressure 108/58 10/03/2022 9:39 AM CDT Pulse 89 10/03/2022 9:39 AM CDT Temperature 36.6 ??C (97.8 ??F) 10/03/2022 9:39 AM CD T Respiratory Rate 18 10/03/2022 9:39 AM CDT Oxygen Saturation 96% 10/03/2022 9:39 AM CDT Inhaled Oxygen Concentration - - Weight - - Height - - Body Mass Index - - documented in this encounter Miscellaneous Notes * Home Health Visit Narrative - Litzy Zaragoza SLP - 10/03/2022 10:[address] services provided this date for communication and swallowing including oral motor and airway protection exercises, review of safe swallow precautions, diet recommendation, and intelligibility strategies, and continued HEP development. Patient will benefit from further skilled ST servicesfor communication and swallowing abilities including therapeutic exercise, education, and continueddevelopment of home exercise program to improve patient's ability to communicate functional information and to decrease risk of aspiration and aspiration pneumonia. * Home Health Plan for Next Visit - Litzy Zaragoza SLP - 10/03/2022 10:24 AM CDT Reason for today's visit: STONEWORKING BELT SANDER reassessment of swallowing and communication abilities Discuss plan of care with patient and patient caregiver. Discharge planning: DC when goals are met or max potential is reached Plan for next visit: therex, education, HEP development documented in this encounter Plan of Treatment Not on file documented as of this encounter Visit Diagnoses Not on filedocumented in this encounter Home Health Visit - Care Plan Visit Details Visit Type -STONEWORKING BELT SANDER Reassessment Discipline -Speech Language Pathology Problems Problem Description Start Date Status Goals Interve ntions Homebound Status Disciplines: Skilled Disciplines Patient's homebound status 08/28/2022 Active 1 goal linked to scheduled/documen vickie intervention 1 goal intervention scheduled/documen vickie in this visit Monitor patient's vital signs every home health visit Disciplines: SN, PT, OT, STONEWORKING BELT SANDER, MECHANIC FIELD SERVICE, Skilled Disciplines Monitor patient's vital signs every home health visit. 08/28/2022 Active 1 goal linked to scheduled/documen vickie intervention 1 goal intervention scheduled/documen vickie in this visit Safety concerns Disciplines: Skilled Disciplines Alteration in safety 08/28/2022 Active 1 goal linked to scheduled/documen vickie intervention 2 goal interventions scheduled/documen vickie in this visit STONEWORKING BELT SANDER Impaired Swallowing Disciplines: Speech Language Pathology Impaired swallow with 09/05/2022 Active - 4 problem interventions scheduled/documen vickie in this visit STONEWORKING BELT SANDER oral motor problems Disciplines: Speech Language Pathology [...] visit during episode of care Description: Home quill worker to measure vital signs during every home [...] (HEP) Description: Instruct patient/caregiver and perform HEP. Problem:STONEWORKING BELT SANDER Impaired Swallowing Completed Review and continued development of HEP for oral motor and airway protection exercises with patient and patient caregiver demonstrating comprehension. Instruct on diet with appropriate consistencies Description: Instruct patient/caregiver on diet with appropriate consistencies Problem:STONEWORKING BELT SANDER Impaired Swallowing Completed Review of diet recommendation for thin liquids with soft solids, patient wanting to try rice and salad - recommended patient try rice with extra sauce and rice cooked well and salad with lettuce shredded and extra dressing for added moisture. Instruct appropriate strategies to prevent choking/aspiration Description: Instruct patient/caregiver on appropriate strategies to prevent choking / aspiration Problem:STONEWORKING BELT SANDER Impaired Swallowing Completed Review of safe swallow strategies including decreased rate, decreased bolus size, alternating liquids and solids, and sitting up straight during and 30 minutes following oral intake with patient and patient caregiver demonstrating comprehension. Instruct on swallowing exercises Description: Teach swallow exercises. Problem:STONEWORKING BELT SANDER Impaired Swallowing Completed Review of oral motor and airway protection exercises including labial protrusion, retraction, lateralization, and closure and lingual protrusion, retraction, and lateralization with skilled v/v instruction provided as needed. Home Exercise Program (HEP) Description: Instruct patient/caregiver and perform HEP. Problem:STONEWORKING BELT SANDER oral motor problems Completed Review and continued development of HEP for oral motor abilities with patient and patient caregiver demonstrating comprehension. 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 Problem:STONEWORKING BELT SANDER oral motor problems Completed documented in this encounter Care Teams Computer Forensics Examiner Relationship Specialty Start Date End Date Jaleel Mcgovern MD PCP - General Family Practice 07/18/22 Reynaldo Flannery DO Consulting Physician Cardiology 09/26/17 Guanakito Holland MD Consulting Physician Cardiovascular Disease 07/29/18 documented as of this encounter
--- OUTSIDE RECORDS SUMMARY | 2024-04-11 06:35 | XMS_ITS | Encounter Summary ---
Author Organization [facility] Home Care Servic es Address [address] [place] [address] Phone Care Team Providers Care Heavy Rail Train Operator Name Role Phone Reynaldo Flannery DO Unavailable [phone] Guanakito Holland MD Unavailable Jaleel Mcgovern MD Primary Care Provider [phone] Reason for Visit * Auth/Cert (Routine) Specialty Diagnoses / Procedures Referred By Contac t Referred To Contact Referral ID Status Reason Start Date Expiration Date Visits Re quested Visits Authorized [id number] 1 1 Encounter Details Date Type Department Care Team (Late st Contact Info) Description 10/10/2022 2:15 PM CDT Home Care Visit [facility] Home Health [address] [address] [address] [place] [address] Litzy Zaragoza, MAKE UP GIRL MAKE UP GIRL HOME VISIT Social History Tobacco Use Types [...] or relatives? Once a week 08/12/2022 Attends Hoahaoism Services Not on file 08/12 Active Member [...] Recorded Patient Health Questionnaire-2 Score 0 08/23/2022 [facility] of Occupat ional Health - Occupational Stress [...] on file Legal Sex Female 11:18 AM WEATHERIZATION SPECIALIST Gender Identity Female 10/09/2022 9:08 AM CDT Sexual Orientation Choose not to disclose 2022 9:08 AM CDT documented as of this encounter Last Filed Vital Signs Vital Sign Reading Time Taken Comments Blood Pressure 121/70 10/10/2022 2:21 PM CDT Pulse 84 10/10/2022 2:21 PM CDT Temperature 36.2 ??C (97.1 ??F) 10/10/2022 2:21 PM CD T Respiratory Rate 18 10/10/2022 2:21 PM CDT Oxygen Saturation 98% 10/10/2022 2:21 PM CDT Inhaled Oxygen Concentration - - Weight - - Height - - Body Mass Index - - documented in this encounter Miscellaneous Notes * Home Health Plan for Next Visit - Litzy Zaragoza SLP - 10/10/2022 2:56 PM CDT Reason for today's visit: skilled ST services for communication and swallowing Discuss plan of care with patient and patient caregiver. Discharge planning: DC when goals are met or max potential is reached Plan for next visit: therex, education, HEP development * Home Health Visit Narrative - Litzy Zaragoza SLP - 10/10/2022 2:[address]illed ST services provided this date for communication and swallowing including review or oral motor and airway protection exercises, education regarding communication strategies and diet recommendation, and continued HEP development. Patient will benefit from further skilled ST services for commu nication and swallowing including therapeutic exercise, education, and continued development of home exercise program to improve patient's ability to communicate functional information and to decrease risk of aspiration and aspiration pneumonia. documented in this encounter Plan of Treatment Not on file documented as of this encounter Visit Diagnoses Not on filedocumented in this encounter Home Health Visit - Care Plan Visit Details Visit Type -MAKE UP GIRL Home Visit Discipline -Speech Language Pathology Problems Problem Description Start Date Status Goals Interve ntions Homebound Status Disciplines: Skilled Disciplines Patient's homebound status 08/28/2022 Active 1 goal linked to scheduled/documen vickie intervention 1 goal intervention scheduled/documen vickie in this visit Monitor patient's vital signs every home health visit Disciplines: SN, PT, OT, MAKE UP GIRL, SKEIN BANDER, Skilled Disciplines Monitor patient's vital signs every home health visit. 08/28/2022 Active 1 goal linked to scheduled/documen vickie intervention 1 goal intervention scheduled/documen vickie in this visit Safety concerns Disciplines: Skilled Disciplines Alteration in safety 08/28/2022 Active 1 goal linked to scheduled/documen vickie intervention 2 goal interventions scheduled/documen vickie in this visit MAKE UP GIRL Impaired Swallowing Disciplines: Speech Language Pathology Impaired swallow with 09/05/2022 Active - 4 problem interventions scheduled/documen vickie in this visit MAKE UP GIRL oral motor problems Disciplines: Speech Language Pathology [...] visit during episode of care Description: Home sustainable development policy analyst to measure vital signs during every home [...] (HEP) Description: Instruct patient/caregiver and perform HEP. Problem:MAKE UP GIRL Impaired Swallowing Completed Review and continued development of HEP for oral motor and airway protection exercises with patient and patient caregiver demonstrating comprehension. Instruct on diet with appropriate consistencies Description: Instruct patient/caregiver on diet with appropriate consistencies Problem:MAKE UP GIRL Impaired Swallowing Completed Instruct appropriate strategies to prevent choking/aspiration Description: Instruct patient/caregiver on appropriate strategies to prevent choking / aspiration Problem:MAKE UP GIRL Impaired Swallowing Completed Review of safe swallow strategies including decreased rate, decreased bolus size, alternating liquids and solids, and sitting up straight during and 30 minutes following oral intake with patient and patient caregiver demonstrating comprehension. Instruct on swallowing exercises Description: Teach swallow exercises. Problem:MAKE UP GIRL Impaired Swallowing Completed Review of swallowing exercises including lingual protrusion, retraction, lateralization, and rotation and labial protrusion, retraction, lateralization, and closure. Home Exercise Program (HEP) Description: Instruct patient/caregiver and perform HEP. Problem:MAKE UP GIRL oral motor problems Completed Review and continued development of HEP for intelligibility with patient and patient caregiver demonstrating comprehension. MAKE UP GIRL speech articulation disorder treatments Description: Therapeutic exercise. Problem:MAKE UP GIRL oral motor problems Completed documented in this encounter Care Teams Heavy Rail Train Operator Relationship Specialty Start Date End Date Jaleel Mcgovern MD PCP - General Family Practice 07/18/22 Reynaldo Flannery DO Consulting Physician Cardiology 09/26/17 Guanakito Holland MD Consulting Physician Cardiovascular Disease 07/29/18 documented as of this encounter
--- OUTSIDE RECORDS SUMMARY | 2024-04-11 06:35 | XMS_ITS | Encounter Summary ---
Author Organization [facility] Address [address] [place] [address] Care Team Providers Care Family Resource Coordinator Name Role Phone Reynaldo Flannery DO Unavailable [phone] Guanakito Holland MD Unavailable Jaleel Mcgovern MD Primary Care Provider [phone] Reason for Visit * Cardiology (Routine) - Closed Specialty Diagnoses / Procedures Referred By Contac t Referred To Contact Diagnoses Paroxysmal atrial fibrillation (CMS/HCC) (HCC) Sick sinus syndrome (CMS/HCC) (HCC) Cardiac pacemaker in situ Procedures DEVICE CHECK - IN OFFICE Mannie Hernandez MD [address] [address] Phone: tel: fax: [facility] Referral ID Status Reason Start Date Expiration Date Visits Re quested Visits Authorized [id number] Closed 09/19/2021 10/19/2022 1 1 Encounter Details Date Type Department Care Team (Latest Contact Info) Description 10/02/2022 10:00 AM CDT Ancillary Procedure [facility] Cardiology [address] [facility] [address] [id number] Paroxysmal atrial fibrillation (CMS/HCC) (HCC); Sick sinus [...] or relatives? Once a week 08/12/2022 Attends Zoroastrianism Services Not on file 08/12 Active Member [...] Recorded Patient Health Questionnaire-2 Score 0 08/23/2022 [facility] Occupat ional Health - Occupational Stress [...] on file Legal Sex Female 11:18 AM SUPPORT SERVICES COORDINATOR Gender Identity Female 10/09/2022 9:08 AM CDT Sexual Orientation Choose not to disclose 2022 9:08 AM CDT documented as of this encounter Plan of Treatment Not on file documented as of this encounter Procedures Procedure Name Priority Date/Time Associated Diagnosis Comments DEVICE CHECK - IN OFFICE Routine 10/02/2022 9:40 AM CDT Paroxysmal atrial fibrillation (CMS/HCC) (HCC) Sick sinus syndrome (CMS/HCC) (HCC) Cardiac pacemaker in situ documented in this encounter Results * DEVICE CHECK - IN OFFICE (10/02/2022 9:40 AM CDT) Anatomical Region Laterality Modality Other Narrative 10/08/2022 10:21 AM CDT Biotronik Dual Pacemaker. Dx; SSS, Afib. DOI 07/29/2018-Dr Holland. RA Lead replaced 09/14/18. AV Node Ablation 12/2018. Supervising MD: Dr Hutton. Office pacemaker evaluation demonstrated appropriate device function. Left pectoral incision incision well healed without signs of infection noted. Battery function-Ok, 4.5 years remaining battery life to LEANA. Appropriate lead measurements noted. Presenting rhythm-Afib Vpaced-Vsensed, PVC's. Underlying rhythm-Afib predominately VPaced @ VVI 30 bpm. Consider Pacemaker Dependent. AP-1%, CEMENT BREAKER-84%. AF [place] 100%. No ventricular high rate episodes noted. 10-PMT. Medications; Eliquis, Toprol XL. Programmed to VVI-CLS d/t Chronic Afib. See scanned report. Office pacemaker f/u 10/22/2023. Biotronik remote f/u 01/07/2023. Merry Cavanaugh, RN us Mannie Hernandez MD CV CARDIAC SERVICES PROC [facility] Final Result documented in this encounter Visit Diagnoses Diagnosis Paroxysmal atrial fibrillation (CMS/HCC) (HCC) Atrial fibrillation Sick sinus syndrome (CMS/HCC) (HCC) Sinoatrial node dysfunction Cardiac pacemaker in situ documented in this encounter Care Teams Family Resource Coordinator Relationship Specialty Start Date End Date Jaleel Mcgovern MD PCP - General Family Practice 07/18/22 Reynaldo Flannery DO Consulting Physician Cardiology 09/26/17 Guanakito Holland MD Consulting Physician Cardiovascular Disease 07/29/18 documented as of this encounter
--- OUTSIDE RECORDS SUMMARY | 2024-04-11 06:35 | XMS_ITS | Encounter Summary ---
Author Organization [facility] Home Care Servic es Address [address] [place] [address] Phone Care Team Providers Care Fiber Locking Supervisor Name Role Phone Reynaldo Flannery DO Unavailable [phone] Guanakito Holland MD Unavailable [phone] Jaleel Mcgovern MD Primary Care Provider [phone] Reason for Visit * Auth/Cert (Routine) Specialty Diagnoses / Procedures Referred By Contac t Referred To Contact Referral ID Status Reason Start Date Expiration Date Visits Re quested Visits Authorized [id number] 1 1 Encounter Details Date Type Department Care Team (Late st Contact Info) Description 09/19/2022 11:30 AM CDT Home Care Visit [facility] Home Health [address] [address] [address] [place] [address] Morena Holder OT OT HOME VISIT Social History Tobacco Use [...] or relatives? 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 AIDE Gender Identity Female 10/09/2022 9:08 AM CDT Sexual Orientation Choose not to disclose 2022 9:08 AM CDT documented as of this encounter Last Filed Vital Signs Vital Sign Reading Time Taken Comments Blood Pressure 111/70 09/19/2022 12:02 PM CDT Pulse 83 09/19/2022 12:02 PM CDT Temperature 35.9 ??C (96.7 ??F) 09/19/2022 12:02 PM C DT Respiratory Rate 18 09/19/2022 12:02 PM CDT Oxygen Saturation 97% 09/19/2022 12:02 PM CDT Inhaled Oxygen Concentration - - Weight - - Height - - Body Mass Index - - documented in this encounter Miscellaneous Notes * Home Health Plan for Next Visit - Morena Holder OT - 09/19/2022 11:50 AM CDT Reason for today's visit review HEP and energy conservation Discuss plan of care with pt. and daughter Discharge planning to self and family once OT goals are addressed Plan for next visit review hand HEP and ADL's documented in this encounter Plan of Treatment [...] home health visit Disciplines: SN, PT, OT, CONCRETE MIXER LOADER TRUCK MOUNTED, OCEAN CLAM BOAT CAPTAIN, Skilled Disciplines Monitor patient's vital signs every [...] use of upper extremity 08/30/2022 Active - 1 problem intervention scheduled/documen vickie in this visit Goals Goal Associated Problem Outcome Goal Met? Visit Notes Patient receives care at the most appropriate care setting Description: Patient receives care at the most appropriate care setting. Homebound Status No Measure vital signs during every home health visit during episode of care Description: Home incising machine operator to measure vital signs during every home [...] concerns Goal:Demonstrate use of safety precautions Scheduled Assess safety Description: Assess patient safety Problem:Safety concerns Goal:Demonstrate use of safety precautions Scheduled Instruct on pain management techniques Description: Instruct in pharmacologic and nonpharmacologic pain management techniques. Problem:Pain Goal:Report that pain has been reduced or controlled Scheduled Energy Conservation Education Description: Instruct patient/caregiver in techniques for improved activity tolerance Problem:OT Activity Tolerance/Energy Conservation Completed Educated pt. on energy conservation and how its important to listen to your body and not do to much at once. Pt. demonstrated good understanding of information Home Exercise Program (HEP) Description: Instruct patient/caregiver and perform HEP. Problem:OT Impaired UE Function and/or Fine Motor Skills Completed Reviewed and educated pt. on HEP. Pt. completed 5-7 reps of therputty and shoulder exercises. Pt. demonstrated with mod cues and good understanding of information. Reviewed fine motor activities with pt. and daughter. Informed her of which ones to do and which ones to wait on doing. Pt. and daughter demonstrated good understanding of information documented in this encounter Care Teams Fiber Locking Supervisor Relationship Specialty Start Date End Date Jaleel Mcgovern MD PCP - General Family Practice 07/18/22 Reynaldo Flannery DO Consulting Physician Cardiology 09/26/17 Guanakito Holland MD Consulting Physician Cardiovascular Disease 07/29/18 documented as of this encounter
--- OUTSIDE RECORDS SUMMARY | 2024-04-11 06:35 | XMS_ITS | Encounter Summary ---
Author Organization [facility] Home Care Servic es Address [address] [place] [address] Phone Care Team Providers Care Clerk To Justice Name Role Phone Reynaldo Flannery DO Unavailable [phone] Guanakito Holland MD Unavailable [phone] Jaleel Mcgovern MD Primary Care Provider [phone] Reason for Visit * Auth/Cert (Routine) Specialty Diagnoses / Procedures Referred By Contac t Referred To Contact Referral ID Status Reason Start Date Expiration Date Visits Re quested Visits Authorized [id number] 1 1 Encounter Details Date Type Department Care Team (Late st Contact Info) Description 10/10/2022 Home Care Visit [facility] Home Health [facility] [address] [place] [address] Morena Holder, OT TELEPHONE ENCOUNTER Social History Tobacco Use Types Packs/Day Years [...] or relatives? 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
--- OUTSIDE RECORDS SUMMARY | 2024-04-11 06:35 | XMS_ITS | Encounter Summary ---
Author Organization [facility] Address [address] [place] [address] Phone Care Team Providers Care Heavy Equipment Operating Engineer Name Role Phone Reynaldo Flannery DO Unavailable [phone] Guanakito Holland MD Unavailable [phone] Jaleel Mcgovern MD Primary Care Provider [phone] Reason for Visit * Auth/Cert (Routine) Specialty Diagnoses / Procedures Referred By Contac t Referred To Contact Referral ID Status Reason Start Date Expiration Date Visits Re quested Visits Authorized [id number] 1 1 Encounter Details Date Type Department Care Team (Late st Contact Info) Description 10/24/2022 11:30 AM CDT Home Care Visit [facility] Home Health [address] [address] [address] [place] [address] Watson Sanchez, PT PT OASIS DISCHARGE Social History Tobacco Use Types Packs/Day Years [...] or relatives? Once a week 08/12/2022 Attends Yazdanism Services Not on file 08/12 Active Member [...] Recorded Patient Health Questionnaire-2 Score 0 08/23/2022 [facility] Occupat ional Health - Occupational Stress [...] on file Legal Sex Female 11:18 AM HOUSEKEEPING STAFF Gender Identity Female 10/09/2022 9:08 AM CDT Sexual Orientation Choose not to disclose 2022 9:08 AM CDT documented as of this encounter Last Filed Vital Signs Vital Sign Reading Time Taken Comments Blood Pressure 101/65 10/24/2022 11:50 AM CDT Pulse 71 10/24/2022 11:50 AM CDT Temperature 36.4 ??C (97.6 ??F) 10/24/2022 11:50 AM C DT Respiratory Rate 18 10/24/2022 11:50 AM CDT Oxygen Saturation 97% 10/24/2022 11:50 AM CDT Inhaled Oxygen Concentration - - Weight - - Height - - Body Mass Index - - documented in this encounter Miscellaneous Notes * Home Health Visit Narrative - Watson Sanchez, PT - 10/24/2022 11:46 AM CDT Patient present with her daugther from homecare physical therapy and homecare agency discharge. Patient has made excellent progress throughout PT, all goals met. No further homecare PT indicated at this time, patient discharged today. Patient and daughter both agreeable to today's discharge. Patient is now staying on her own in evenings, but daughter is present in the home daily to assist as needed. * Home Health Plan for Next Visit - Watson Sanchez, PT - 10/24/2022 11:46 AM CDT Reason for today's visit: homecare PT and agency discharge Discussed plan of care interventions with the patient, who is agreeable to discharge. Discharge planning: d/c today, goals met. Plan for next visit: n/a, patient d/c'd from homecare agency today. documented in this encounter Plan of Treatment Not on file documented as of this encounter Visit Diagnoses Not on filedocumented in this encounter Home Health Visit - Care Plan Visit Details Visit Type -PT OASIS Dischar Discipline -Physical Therapy Problems Problem Description Start Date Status Goals Interventions Homebound Status Disciplines: Skilled Disciplines Patient's homebound status 08/28/2022 Active 1 goal linked to scheduled/documen vickie intervention 1 goal intervention scheduled/docume nted in this visit Monitor patient's vital signs every home health visit Disciplines: SN, PT, OT, GENERAL OPERATOR, MARKETING PROFESSIONAL, Skilled Disciplines Monitor patient's vital signs every home health visit. 08/28/2022 Active 1 goal linked to scheduled/documen vickie intervention 1 goal intervention scheduled/docume nted in this visit Multidisciplina ry Case Conference Disciplines: Skilled Disciplines Concurrently discusses plan of treatment and coordinate patient centered care 08/28/2022 Active 1 goal linked to scheduled/documen vickie intervention Infection Prevention Disciplines: Skilled Disciplines Infection Prevention 08/28/2022 Active 1 goal linked to scheduled/documen vickie intervention Safety concerns Disciplines: Skilled Disciplines Alteration in safety 08/28/2022 Active 1 goal linked to scheduled/documen vickie intervention 2 goal interventions scheduled/docume nted in this visit DVT Prevention and Management Disciplines: Skilled Disciplines Management of anticoagulation therapy 08/28/2022 Active 1 goal linked to scheduled/documen vickie intervention Pain Disciplines: Core Disciplines Alteration in comfort 08/28/2022 Active 1 goal linked to scheduled/documen vickie intervention 1 goal intervention scheduled/docume nted in this visit PT Impaired Functional Mobility/Balanc e Disciplines: Physical Therapy Impaired functional mobility/balance 08/28/2022 Active 4 goals linked to scheduled/documen vickie interventions 2 problem interventions scheduled/docume nted in this visit Goals Goal Associated Problem Outcome Goal Met? Visit Notes Patient receives care at the most appropriate care setting Description: Patient receives care at the most appropriate care setting. Homebound Status Completed Yes Measure vital signs during every home health visit during episode of care Description: Home outreach clinician to measure vital signs during every home health visit during episode of care. Monitor patient's vital signs every home health visit Completed Yes Care team will coordinate care Description: Care team will coordinate care centered on patient needs throughout the episode of care. Multidisciplinary Case Conference Completed Yes Verbalize signs of infection Description: Patient/caregiver will demonstrate knowledge of infection prevention strategies by verbalizing signs and symptoms of infection. Infection Prevention Completed Yes Demonstrate use of safety precautions Description: Patient/caregiver maintains safe home environment as evidenced by remaining free from injury and demonstrates use of safety precautions. Safety concerns Completed Yes Demonstrate knowledge of anticoagulant therapy Description: Patient/caregiver will verbalize understanding of anticoagulation therapy including adverse signs and symptoms to notify physician or contact EMS. DVT Prevention and Management Completed Yes Report that pain has been reduced or controlled Description: Patient/caregiver/family will verbalize satisfaction with the patients level of pain and symptom control. Pain Completed Yes Improvement with Transfers Description: transfers without assist safely from a variety of household surfaces consistently including edge of bed, toilet, chair. Assist with vehicle and shower transfers as needed. Achieve by 10/12/22. PT Impaired Functional Mobility/Balance Completed Yes independent with all transfers Improvement in Gait/Stair Training Description: Patient will ambulate 500+ feet in home using walker modified independent by 10/26/22. Patient will negotiate front and/or back steps using hand rail and min assist or better to access transportation/community activities by 10/12/22. (achieved) PT Impaired Functional Mobility/Balance Completed Yes pt. independent with gait x 500+ feet and independent with stairs using handrail. Improvement with balance Description: Improve Tinetti score from 16/28 at IE to 22/28 by therapy 10/12/22. (achieved 10/07/22) Improve balance during ADL's, IADL's, functional mobility as evidenced by no falls with injury during HomeCare episode. (progressing well) PT Impaired Functional Mobility/Balance Completed Yes tinetti today no falls Performance with HEP Description: Patient/caregiver to be independent with progressed HEP by therapy discharge. PT Impaired Functional Mobility/Balance Completed Yes independent with HEP Interventions Intervention Associated Problem/Goal Status Variance Visit [...] Goal:Demonstrate use of safety precautions Completed Patient educated to maintain clear pathways and good lighting, remove throw rugs, keep pets in designated areas, use assistive device as needed/instructed and ask for assistance as appropriate. Patient reports clear understanding, provides safe verbalization/return demonstration of instruction. Assess safety Description: Assess patient safety Problem:Safety concerns Goal:Demonstrate use of safety precautions Completed Instruct on pain management techniques Description: Instruct in pharmacologic and nonpharmacologic pain management techniques. Problem:Pain Goal:Report that pain has been reduced or controlled Completed Instructed patient to rest as needed, take pain medication as prescribed. Educated to contact MD office or nurse triage line in case of new or worsening pain. patient verbalizes good understanding of instructions and provides safe verbalization/return demonstration of instructions. Home Exercise Program (HEP) Description: Instruct patient/caregiver and perform HEP. Problem:PT Impaired Functional Mobility/Balance Completed instructed to continue HEP X 10-20 reps BID as tolerated. issued handouts for reference. patient verbalizes good understanding of instructions and provides safe verbalization/return demonstration of instructions Gait/Stair Training Description: Instruct patient/caregiver and perform gait/stair training. Problem:PT Impaired Functional Mobility/Balance Completed instructed to rest as needed, gradually increase walking program as tolerated and use assistive device as needed for safety. patient verbalizes good understanding of instructions and provides safe verbalization/return demonstration of instructions. documented in this encounter Care Teams Heavy Equipment Operating Engineer Relationship Specialty Start Date End Date Jaleel Mcgovern MD PCP - General Family Practice 07/18/22 Reynaldo Flannery DO Consulting Physician Cardiology 09/26/17 Guanakito Holland MD Consulting Physician Cardiovascular Disease 07/29/18 documented as of this encounter
--- OUTSIDE RECORDS SUMMARY | 2024-04-11 06:35 | XMS_ITS | Encounter Summary ---
Author Organization [facility] Home Care [facility] Address [address] [place] [address] Phone Care Team Providers Care Catering Assistant Name Role Phone Reynaldo Flannery DO Unavailable [phone] Guanakito Holland MD Unavailable [phone] Jaleel Mcgovern MD Primary Care Provider [phone] Reason for Visit * Reason Comments Extremity Weakness * Auth/Cert (Routine) Specialty Diagnoses / Procedures Referred By Contac t Referred To Contact Referral ID Status Reason Start Date Expiration Date Visits Re quested Visits Authorized [id number] 1 1 Encounter Details Date Type Department Care Team (Late st Contact Info) Description 10/03/2022 8:30 AM CDT Home Care Visit [facility] Home Health [address] [address] [address] [place] [address] Keisha Strauss COTA OT HOME VISIT Social [...] Recorded Patient Health Questionnaire-2 Score 0 08/23/2022 [facility] Occupat ional Health - Occupational Stress [...] on file 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 Gender Identity Female 10/09/2022 9:08 AM CDT Sexual Orientation Choose not to disclose 2022 9:08 AM CDT documented as of this encounter Last Filed Vital Signs Vital Sign Reading Time Taken Comments Blood Pressure 108/60 10/03/2022 8:50 AM CDT Pulse 43 10/03/2022 8:50 AM CDT Temperature 36.6 ??C (97.8 ??F) 10/03/2022 8:50 AM CD T Respiratory Rate 18 10/03/2022 8:50 AM CDT Oxygen Saturation 97% 10/03/2022 8:50 AM CDT Inhaled Oxygen Concentration - - Weight - - Height - - Body Mass Index - - documented in this encounter Miscellaneous Notes * Home Health Plan for Next Visit - Keisha Strauss COTA - 10/03/2022 9:50 AM CDT Reason for today's visit: instruction in EC, balance, UE HEP and 9-hole peg test to support ADL function. Discuss plan of care with pt and dtr. Discharge planning: can benefit from OP when OT goals have been met or max potential with HC OT hasbeen reached. Plan for next visit: to address grooming and HEP. Pt in agreement with [facility]. documented in this encounter Plan of Treatment [...] home health visit Disciplines: SN, PT, OT, MECHANICAL SYSTEMS CONTROL ENGINEER, SHANK TAPPER, Skilled Disciplines Monitor patient's vital signs every [...] scheduled/documen vickie in this visit OT Impaired IADLs Disciplines: Occupational Therapy Impaired independence in house management/homema melanie activities 08/30/2022 Active - 1 problem intervention scheduled/documen vickie in this visit OT Impaired Functional Mobility/Balance Disciplines: Occupational Therapy Impaired functional mobility/balance 08/30/2022 Active - 1 problem intervention scheduled/documen [...] visit during episode of care Description: Home talent scout to measure vital signs during every home [...] near the waist to reduce fall risk. Ed caregiver on how to cue pt to correct posture with functional mobility. Pt/caregiver verbalized understanding. Assess safety Description: Assess patient safety Problem:Safety concerns Goal:Demonstrate use of safety precautions Scheduled Instruct on pain management techniques Description: Instruct in pharmacologic and nonpharmacologic pain management techniques. Problem:Pain Goal:Report that pain has been reduced or controlled Completed Pt reports mild pain and is soaking foot as intervention with good outcome. I can touch it now without pain. Energy Conservation Education Description: Instruct patient/caregiver in techniques for improved activity tolerance Problem:OT Activity Tolerance/Energy Conservation Completed Ed patient in energy conservation (EC) techniques for improved activity tolerance; best time of day, work simplification/break ing task into smaller steps, sitting to complete tasks rest breaks, pacing, and breathing tech to improve ability to engage in daily occupations. Pt ed in use of EC with kitchen task. Pt verbalized understanding with F+ return demo. Home Exercise Program (HEP) Description: Instruct patient/caregiver and perform HEP. Problem:OT Impaired UE Function and/or Fine Motor Skills Completed Pt ed in therepeutic exercise to include BUE AROM x 10 reps, shoulder shrugs, scapular retractions, active shoulder composite rotations, horizontal add/abd and hand exercise with focus on improved flexibility for daily occupation. Pt ed in AROM hand HEP; slow/gentle dip/pip/mcp flexion/ext/add/abd/ serial opposition to improve flexibility for ADLs and FMC for daily occupations with good understanding and F+ return demo. Therapeutic Exercise Description: Perform and progress therapeutic exercise. Problem:OT Impaired UE Function and/or Fine Motor Skills Completed Provided pt with 9-hole peg test with the following results: R=(dominant) 1 min 36.37 sec , L= 22.16 sec. Today's score represent R hand improvement over last score 0n 09/12: R hand 2 min 10.84 sec. L hand 21.92 sec. Pt and dtr advised of scores. Instruct in house management/homemaking activities Description: Instruct patient/caregiver for improved performance with house management/homemaking activities. Problem:OT Impaired IADLs Completed Pt ed in use of EC and balance principles during kitchen activity. Pt voiced understanding with F+ return demo to wash dishes. Ed pt to take a rest break. Pt voiced understanding with good return after standing 6 min, 23sec, SBA. Balance Activities Description: Balance Activities. Problem:OT Impaired Functional Mobility/Balance Completed Pt ed in body alignment, placement of feet, facing objects/work surface, proximity to work surface, avoiding over-reaching to improve balance and for fall prevention during standing ADLs. Pt verbalized understanding of strategy and stood for one trial, 6 min 23 sec with intermittent UE support with F+ balance. See also homemaking. ADL Instruction Description: Instruct patient/caregiver for improved ADL performance. Problem:OT Impaired ADLs Completed Pt reported ability to dress and stated, I dressed myself this morning. documented in this encounter Care Teams Catering Assistant Relationship Specialty Start Date End Date Jaleel Mcgovern MD PCP - General Family Practice 07/18/22 Reynaldo Flannery DO Consulting Physician Cardiology 09/26/17 Guanakito Holland MD Consulting Physician Cardiovascular Disease 07/29/18 documented as of this encounter
--- OUTSIDE RECORDS SUMMARY | 2024-04-11 06:35 | XMS_ITS | Encounter Summary ---
Author Organization [facility] Home Care [facility] Address [address] [place] [address] Phone Care Team Providers Care Prisoner Classification Interviewer Name Role Phone Reynaldo Flannery DO Unavailable [phone] Guanakito Holland MD Unavailable [phone] Jaleel Mcgovern MD Primary Care Provider [phone] Reason for Visit * Auth/Cert (Routine) Specialty Diagnoses / Procedures Referred By Contac t Referred To Contact Referral ID Status Reason Start Date Expiration Date Visits Re quested Visits Authorized [id number] 1 1 Encounter Details Date Type Department Care Team (Late st Contact Info) Description 10/01/2022 2:00 PM CDT Home Care Visit [facility] Home Health [address] [address] [address] [place] [address] Litzy Zaragoza, FIBRE CEMENT MOULDER FIBRE CEMENT MOULDER HOME VISIT Social History Tobacco Use Types [...] or relatives? Once a week 08/12/2022 Attends Yazidism Services Not on file 08/12 Active Member [...] Recorded Patient Health Questionnaire-2 Score 0 08/23/2022 [facility] Occupat ional Health - Occupational [...] to sleep or slept in a senior living (including now)? No 08/12/2022 Personal Safety Answer Date Recorded Have you ever been in or are you currently in a harmful physical or emotional relationship or is someone making you feel afraid or unsafe? 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 Gender Identity Female 10/09/2022 9:08 AM CDT Sexual Orientation Choose not to disclose 2022 9:08 AM CDT documented as of this encounter Last Filed Vital Signs Vital Sign Reading Time Taken Comments Blood Pressure 108/58 10/01/2022 2:02 PM CDT Pulse 91 10/01/2022 2:02 PM CDT Temperature 36.2 ??C (97.2 ??F) 10/01/2022 2:02 PM CD T Respiratory Rate 18 10/01/2022 2:02 PM CDT Oxygen Saturation 98% 10/01/2022 2:02 PM CDT Inhaled Oxygen Concentration - - Weight - - Height - - Body Mass Index - - documented in this encounter Miscellaneous Notes * Home Health Visit Narrative - Litzy Zaragoza SLP - 10/01/2022 1:[address]illed [address] services provided this date for communication and swallowing including oral motor and airway protection exercises, review of safe swallow precautions and intelligibility strategies, reviewof diet recommendation, and continued HEP development. Patient will benefit from further skilled STservices for communication and swallowing including therapeutic exercise, education, and continued development of home exercise program to improve patient's ability to communicate functional information and to decrease risk of aspiration and aspiration pneumonia. * Home Health Plan for Next Visit - Litzy Zaragoza SLP - 10/01/2022 1:36 PM CDT Reason for today's visit: skilled [...] - Care Plan Visit Details Visit Type -FIBRE CEMENT MOULDER Home Visit Discipline -Speech Language Pathology Problems Problem Description Start Date Status Goals Interve ntions Homebound Status Disciplines: Skilled Disciplines Patient's homebound status 08/28/2022 Active 1 goal linked to scheduled/documen vickie intervention 1 goal intervention scheduled/documen vickie in this visit Monitor patient's vital signs every home health visit Disciplines: SN, PT, OT, FIBRE CEMENT MOULDER, PNEUDRAULIC SYSTEMS MECHANIC, Skilled Disciplines Monitor patient's vital signs every home health visit. 08/28/2022 Active 1 goal linked to scheduled/documen vickie intervention 1 goal intervention scheduled/documen vickie in this visit Safety concerns Disciplines: Skilled Disciplines Alteration in safety 08/28/2022 Active 1 goal linked to scheduled/documen vickie intervention 2 goal interventions scheduled/documen vickie in this visit FIBRE CEMENT MOULDER Impaired Swallowing Disciplines: Speech Language Pathology Impaired swallow with 09/05/2022 Active - 4 problem interventions scheduled/documen vickie in this visit FIBRE CEMENT MOULDER oral motor problems Disciplines: Speech Language Pathology [...] visit during episode of care Description: Home 911 emergency services dispatcher to measure vital signs during every home [...] (HEP) Description: Instruct patient/caregiver and perform HEP. Problem:FIBRE CEMENT MOULDER Impaired Swallowing Completed Review and continued development of HEP for oral motor and airway protection exercises with patient and patient caregiver demonstrating comprehension. Instruct on diet with appropriate consistencies Description: Instruct patient/caregiver on diet with appropriate consistencies Problem:FIBRE CEMENT MOULDER Impaired Swallowing Completed Review of diet recommendation for thin liquids with soft solid foods with patient and caregiver demonstrating comprehension. Answered questions from patient and caregiver regarding appropriate foods (such as recommendation open face burger with extra condiments for increased moisture and salad with head lettuce vs mariela and shredded lettuce) with patient and caregiver demonstrating comprehension. Instruct appropriate strategies to prevent choking/aspiration Description: Instruct patient/caregiver on appropriate strategies to prevent choking / aspiration Problem:FIBRE CEMENT MOULDER Impaired Swallowing Completed Review of safe swallow strategies including decreased rate, decreased bolus size, alternating liquids and solids, and sitting up straight during and 30 minutes following oral intake with patient and patient caregiver demonstrating comprehension. Instruct on swallowing exercises Description: Teach swallow exercises. Problem:FIBRE CEMENT MOULDER Impaired Swallowing Completed Review of oral motor exercises for improved safety with oral intake including labial protrusion, retraction, lateralization, and closure and lingual protrusion, retraction, and lateralization and completed airway protection exercises including effortful swallow and cinthia with skilled v/v instruction provided as needed. Home Exercise Program (HEP) Description: Instruct patient/caregiver and perform HEP. Problem:FIBRE CEMENT MOULDER oral motor problems Completed Review and continued development of HEP for articulation with patient and patient caregiver demonstrating comprehension. 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 Problem:FIBRE CEMENT MOULDER oral motor problems Completed Review of intelligibility strategies including decreased rate, spacing, phrasing, and overarticulation with patient demonstrating comprehension, recommended patient practice using strategies by reading outloud and looking in a mirror. documented in this encounter Care Teams Prisoner Classification Interviewer Relationship Specialty Start Date End Date Jaleel Mcgovern MD PCP - General Family Practice 07/18/22 Reynaldo Flannery DO Consulting Physician Cardiology 09/26/17 Guanakito Holland MD Consulting Physician Cardiovascular Disease 07/29/18 documented as of this encounter
--- OUTSIDE RECORDS SUMMARY | 2024-04-11 06:35 | XMS_ITS | Encounter Summary ---
Author Organization [facility] Address [address] [place] [address] Phone Care Team Providers Care Business Solutions Analyst Name Role Phone Reynaldo Flannery DO Unavailable [phone] Guanakito Holland MD Unavailable [phone] Jaleel Mcgovern MD Primary Care Provider [phone] Encounter Details Date Type Department Care Team (Late st Contact Info) Description 10/04/2022 Telephone [facility] Scheduling [address] [place] [address] Yael Shaw CMA Social History Tobacco Use Types Packs/Day Years [...] or relatives? Once a week 08/12/2022 Attends Taoism Services Not on file 08/12 Active Member [...] Recorded Patient Health Questionnaire-2 Score 0 08/23/2022 [facility] - [...] place to sleep or slept in a snf (including now)? No 08/12/2022 Personal Safety Answer Date Recorded Have you ever been in or are you currently in a harmful physical or emotional relationship or is someone making you feel afraid or unsafe? 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 documented in this encounter Plan of Treatment Not on file documented as of this encounter Visit Diagnoses Not on filedocumented in this encounter Care Teams Business Solutions Analyst Relationship Specialty Start Date End Date Jaleel Mcgovern MD PCP - General Family Practice 07/18/22 Reynaldo Flannery DO Consulting Physician Cardiology 09/26/17 Guanakito Holland MD Consulting Physician Cardiovascular Disease 07/29/18 documented as of this encounter
--- OUTSIDE RECORDS SUMMARY | 2024-04-11 06:35 | XMS_ITS | Encounter Summary ---
Author Organization [facility] Address [address] [place] [address] Phone Care Team Providers Care Manager Career Name Role Phone Reynaldo Flannery DO Unavailable [phone] Guanakito Holland MD Unavailable [phone] Jaleel Mcgovern MD Primary Care Provider [phone] Reason for Visit * Auth/Cert (Routine) Specialty Diagnoses / Procedures Referred By Contac t Referred To Contact Referral ID Status Reason Start Date Expiration Date Visits Re quested Visits Authorized [id number] 1 1 Encounter Details Date Type Department Care Team (Late st Contact Info) Description 10/17/2022 2:45 PM CDT Home Care Visit [facility] Home Health [address] [address] [address] [place] [address] Litzy Zaragoza, NETWORK SUPPORT ANALYST NETWORK SUPPORT ANALYST HOME VISIT Social History Tobacco Use [...] or relatives? 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 Gender Identity Female 10/09/2022 9:08 AM CDT Sexual Orientation Choose not to disclose 2022 9:08 AM CDT documented as of this encounter Last Filed Vital Signs Vital Sign Reading Time Taken Comments Blood Pressure 108/60 10/17/2022 2:52 PM CDT Pulse 72 10/17/2022 2:52 PM CDT Temperature 35.9 ??C (96.6 ??F) 10/17/2022 2:52 PM CD T Respiratory Rate 18 10/17/2022 2:52 PM CDT Oxygen Saturation 93% 10/17/2022 2:52 PM CDT Inhaled Oxygen Concentration - - Weight - - Height - - Body Mass Index - - documented in this encounter Miscellaneous Notes * Home Health Plan for Next Visit - Litzy Zaragoza SLP - 10/17/2022 3:[address] services provided this date for intelligibility and swallowing including oral motor and airway protection exercises, review of safe swallow precautions and diet recommendation, and continued HEP development. Patient will benefit from further skilled ST services for intelligibility and swallowing including therapeutic exercise, education, and continued development of home exercise program to improve patient's ability to communicate functional information and to decrease risk of aspiration and aspiration pneumonia. documented in this encounter Plan of Treatment Not on file documented as of this encounter Visit Diagnoses Not on filedocumented in this encounter Home Health Visit - Care Plan Visit Details Visit Type -NETWORK SUPPORT ANALYST Home Visit Discipline -Speech Language Pathology Problems Problem Description Start Date Status Goals Interve ntions Homebound Status Disciplines: Skilled Disciplines Patient's homebound status 08/28/2022 Active 1 goal linked to scheduled/documen vickie intervention 1 goal intervention scheduled/documen vickie in this visit Monitor patient's vital signs every home health visit Disciplines: SN, PT, OT, NETWORK SUPPORT ANALYST, ECONOMIC GEOGRAPHER, Skilled Disciplines Monitor patient's vital signs every home health visit. 08/28/2022 Active 1 goal linked to scheduled/documen vickie intervention 1 goal intervention scheduled/documen vickie in this visit Safety concerns Disciplines: Skilled Disciplines Alteration in safety 08/28/2022 Active 1 goal linked to scheduled/documen vickie intervention 2 goal interventions scheduled/documen vickie in this visit NETWORK SUPPORT ANALYST Impaired Swallowing Disciplines: Speech Language Pathology Impaired swallow with 09/05/2022 Active - 4 problem interventions scheduled/documen vickie in this visit NETWORK SUPPORT ANALYST oral motor problems Disciplines: Speech Language Pathology Review patient's current oral motor status and create plan. 09/05/2022 Active - 1 problem intervention scheduled/documen vickie in this visit Goals Goal Associated Problem Outcome Goal Met? Visit Notes Patient receives care at the most appropriate care setting Description: Patient receives care at the most appropriate care setting. Homebound Status No Measure vital signs during every home health visit during episode of care Description: Home tongue trimmer to measure vital signs during every home [...] (HEP) Description: Instruct patient/caregiver and perform HEP. Problem:NETWORK SUPPORT ANALYST Impaired Swallowing Completed Review and continued development of HEP for oral motor and airway protection exercises with patient and patient caregiver demonstrating comprehension. Instruct on diet with appropriate consistencies Description: Instruct patient/caregiver on diet with appropriate consistencies Problem:NETWORK SUPPORT ANALYST Impaired Swallowing Completed Education and review of diet recommendation for regular texture solids and thin liquids with patient and patient caregiver demonstrating comprehension, recommended continuing to avoid certain foods (such as nuts) with patient and patient caregiver demonstrating comprehension. Instruct appropriate strategies to prevent choking/aspiration Description: Instruct patient/caregiver on appropriate strategies to prevent choking / aspiration Problem:NETWORK SUPPORT ANALYST Impaired Swallowing Completed Review of safe swallow strategies including decreased rate, decreased bolus size, alternating liquids and solids, and sitting up straight during and 30 minutes following oral intake. Instruct on swallowing exercises Description: Teach swallow exercises. Problem:NETWORK SUPPORT ANALYST Impaired Swallowing Completed Completed oral motor and airway protection exercises including lingual protrusion, retraction, lateralization, labial protrusion, retraction, lateralization, and closure, and effortful swallow with skilled v/v instruction provided as needed. Home Exercise Program (HEP) Description: Instruct patient/caregiver and perform HEP. Problem:NETWORK SUPPORT ANALYST oral motor problems Completed Review and continued development of HEP for intelligibility with patient and patient caregiver demonstrating comprehension. documented in this encounter Care Teams Manager Career Relationship Specialty Start Date End Date Jaleel Mcgovern MD PCP - General Family Practice 07/18/22 Reynaldo Flannery DO Consulting Physician Cardiology 09/26/17 Guanakito Holland MD Consulting Physician Cardiovascular Disease 07/29/18 documented as of this encounter
--- OUTSIDE RECORDS SUMMARY | 2024-04-11 06:35 | XMS_ITS | Encounter Summary ---
Author Organization [facility] Address [address] [place] [address] Phone Care Team Providers Care Physical Fitness Trainer Name Role Phone Reynaldo Flannery DO Unavailable [phone] Guanakito Holland MD Unavailable [phone] Jaleel Mcgovern MD Primary Care Provider [phone] Reason for Visit * Reason Comments Weakness - Generalized * Auth/Cert (Routine) Specialty Diagnoses / Procedures Referred By Contac t Referred To Contact Referral ID Status Reason Start Date Expiration Date Visits Re quested Visits Authorized [id number] 1 1 Encounter Details Date Type Department Care Team (Late st Contact Info) Description 10/03/2022 8:00 AM CDT Home Care Visit [facility] Home Health [address] [address] [address] [place] [address] Lizbet Colbert PTA PT HOME VISIT Social [...] or relatives? Once a week 08/12/2022 Attends Rastafarian Services Not on file 08/12 Active Member [...] Questionnaire-2 Score 0 08/23/2022 [facility] [place] of Occupat ional Health - Occupational Stress [...] place to sleep or slept in a halfway (including now)? No 08/12/2022 Personal Safety Answer Date Recorded Have you ever been in or are you currently in a harmful physical or emotional relationship or is someone making you feel afraid or unsafe? Denies 08/12/2022 Comments No Sex and Gender Information Value Date Recorded Sex Assigned at Not on file Legal Sex Female 11:18 AM VP CARDIOVASCULAR Gender Identity Female 10/09/2022 9:08 AM CDT Sexual Orientation Choose not to disclose 2022 9:08 AM CDT documented as of this encounter Last Filed Vital Signs Vital Sign Reading Time Taken Comments Blood Pressure 110/64 10/03/2022 1:37 PM CDT Pulse 94 10/03/2022 1:37 PM CDT Temperature 36.5 ??C (97.7 ??F) 10/03/2022 1:37 PM CD T Respiratory Rate 18 10/03/2022 1:37 PM CDT Oxygen Saturation 96% 10/03/2022 1:37 PM CDT Inhaled Oxygen Concentration - - Weight - - Height - - Body Mass Index - - documented in this encounter Miscellaneous Notes * Home Health Plan for Next Visit - Lizbet Colbert PTA - 10/03/2022 1:54 PM CDT Reason for today's visit strength, balance, transfers, gait and safety training. Discuss plan of care with pt and daughter who remain agreeable. Updated Watson, PT Discharge planning when goals are met, or pt has achieved max therapeutic benefit from Home Care PTservices. Plan for next visit to cont to progress HEP, strength, balance, gait and transfers to facilitate improved functional ability and mobility and to decrease fall risk. Pts daughter stated that pts PCP called them after last session when I notified her of the pain andredness in the right great toe, and she scheduled visit with pt on 10/07/22 documented in this encounter Plan of Treatment [...] home health visit Disciplines: SN, PT, OT, ORIENTATION AND MOBILITY INSTRUCTOR, TAXONOMY TEACHER, Skilled Disciplines Monitor patient's vital signs every [...] Therapy Impaired functional mobility/balance 08/28/2022 Active - 2 problem interventions scheduled/documen vickie in this visit Goals Goal Associated Problem Outcome Goal Met? Visit Notes Patient receives care at the most appropriate care setting Description: Patient receives care at the most appropriate care setting. Homebound Status No Measure vital signs during every home health visit during episode of care Description: Home greenkeeper to measure vital signs during every home [...] pain has been reduced or controlled Completed reviewed with pt and sherry on pharmacologic and nonpharmacologic pain management techniques. Gait/Stair Training Description: Instruct patient/caregiver and perform gait/stair training. Problem:PT Impaired Functional Mobility/Balance Completed Pt. instructed on gait training outright t/o home for distances 110' with supervision assist. Pt completed gait training with min flexed posture at hips, increased tj, decreased right toe off and heel strike, slight foot drop, varied kimberly and path deviation. completed side stepping outright, tandem and retro gait with bilateral assessment nurse practitioner with cga to min assist. Provided pt with verbal cues to improve technique with pt demonstrating good understanding of the instruction/cues provided. Steps completed with single rail with reciprocal pattern with min assist. completed step ups with right le x 10 reps with sba. pt noted to have improved stability and ability to complete knee ext right. pt copelted obstacle course walking around objects outright with sba. pt was able to clear every objects and was able to adjust gait to complete sidestepping to fit between objects all while maintaing a good kimberly and tj. Performed stepping over objects during gait with poor ability to clear the objects and appeared to display a decreased depth perception. pt required cga to min assist to complete stepping over object that was about 3 inches high and about 1 foot long. Transfer training Description: Instruct patient/caregiver and perform transfer training. Problem:PT Impaired Functional Mobility/Balance Pt. instructed on sit to stand transfers from a chair without arm rest with use of bilateral UE push from pts legs x 5 reps in a Pt. demoed fair technique and understanding to complete transfers safely with cues for decresaed kimberly and to increase trunk flexion and anterior push. documented in this encounter Care Teams Physical Fitness Trainer Relationship Specialty Start Date End Date Jaleel Mcgovern MD PCP - General Family Practice 07/18/22 Reynaldo Flannery DO Consulting Physician Cardiology 09/26/17 Guanakito Holland MD Consulting Physician Cardiovascular Disease 07/29/18 documented as of this encounter
--- OUTSIDE RECORDS SUMMARY | 2024-04-11 06:35 | XMS_ITS | Encounter Summary ---
Author Organization [facility] Home Care [facility] Address [address] [place] [address] Phone Care Team Providers Care Bread Packer Name Role Phone Reynaldo Flannery DO Unavailable [phone] Guanakito Holland MD Unavailable [phone] Jaleel Mcgovern MD Primary Care Provider [phone] Reason for Visit * Reason Comments Weakness - Generalized * Auth/Cert (Routine) Specialty Diagnoses / Procedures Referred By Contac t Referred To Contact Referral ID Status Reason Start Date Expiration Date Visits Re quested Visits Authorized [id number] 1 1 Encounter Details Date Type Department Care Team (Late st Contact Info) Description 09/09/2022 10:45 AM CDT Home Care Visit [facility] Home Health [address] [address] [address] [place] [address] Lizbet Colbert PTA PT HOME VISIT Social [...] Recorded Patient Health Questionnaire-2 Score 0 08/23/2022 [facility] [place] of Occupat ional Health - Occupational Stress [...] on file 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 Gender Identity Female 10/09/2022 9:08 AM CDT Sexual Orientation Choose not to disclose 2022 9:08 AM CDT documented as of this encounter Last Filed Vital Signs Vital Sign Reading Time Taken Comments Blood Pressure 102/70 09/09/2022 10:47 AM CDT Pulse 61 09/09/2022 10:47 AM CDT Temperature 35.9 ??C (96.6 ??F) 09/09/2022 10:47 AM C DT Respiratory Rate 18 09/09/2022 10:47 AM CDT Oxygen Saturation 98% 09/09/2022 10:47 AM CDT Inhaled Oxygen Concentration - - Weight - - Height - - Body Mass Index - - documented in this encounter Miscellaneous Notes * Home Health Plan for Next Visit - Lizbet Colbert PTA - 09/09/2022 10:42 AM CDT Reason for today's visit strength, balance, transfers, gait and safety training. Discuss plan of care with pt and daughter who remain agreeable. Updated [place]. Discharge planning ongoing Plan for next Visit to cont to progress HEP, strength, balance, gait and transfers to facilitate improved functional ability and mobility and to decrease fall risk. Pt cont to demonstrate decreased core strength and stability with balance and gait activities with slight improvement noted this date. Pt and famiy are very motivated and are compliant with Hep. [place] cont per poc to improve pts functional ability and mobility. documented in this encounter Plan of Treatment [...] home health visit Disciplines: SN, PT, OT, AWNING ERECTOR, FLAT BREAKDOWN PROCESSOR, Skilled Disciplines Monitor patient's vital signs every [...] Therapy Impaired functional mobility/balance 08/28/2022 Active - 4 problem interventions scheduled/documen vickie in this visit Goals Goal Associated Problem Outcome Goal Met? Visit Notes Patient receives care at the most appropriate care setting Description: Patient receives care at the most appropriate care setting. Homebound Status No Measure vital signs during every home health visit during episode of care Description: Home structural engineer to measure vital signs during every home [...] from falls and demonstrates use of safety precautions with cues provided from therpaist and family. Instruct on pain management techniques Description: Instruct in pharmacologic and nonpharmacologic pain management techniques. Problem:Pain Goal:Report that pain has been reduced or controlled Completed Patient/Caregiver instructed on pharmacologic and nonpharmacologic pain management techniques. [...] instructed on sit to stand transfers from couch with use of bilateral UE assist. Pt. demoed fair technique and understanding to complete transfers safely with cues provided to utilize the right UE with good follow through noted t/o session. pt noted to have poor control of sit to stand descent. Gait/Stair Training Description: Instruct patient/caregiver and perform gait/stair training. Problem:PT Impaired Functional Mobility/Balance Completed Pt. instructed on gait training outright t/o home for distances of 120' x 1 and 50' x2 to and from back steps. Pt completed gait training with min to cga with decreased right step length, height, toe off, foot clearance and min flexed posture and increased anterior weight shift. Provided pt with verbal cues to improve technique with pt demonstrating fair understanding of the instruction/cues provided. performed pregait activity of single and alternating heel touches x 10 reps each standing with single machine learning intern with cga. provided cues for core contraction with fair follow through noted. Balance Training/Activities Description: Instruct patient/caregiver and perform balance training activities. Problem:PT Impaired Functional Mobility/Balance Completed Patient educated on balance challenges standing outright, single and bilateral UE support while performing balance challenges. Pt completed static stance with left UE support with decresaed tj eyes open and eyes closed, staggered stance each leg with eyes closed all 30 sec holds x 1 bout each with cga to maintain cog with moderate sways noted in all directions. With single machine learning intern completed single then alternating foot touches on a 6 inch object 10 reps each with min assist and noted min trunk ext while completing with the right le. pt completed stand outright with hands clasped while completing knee touch followed with diagonal swing up crossing midline keeping elbows extended t/o the activity. Pt completed with 10 reps each side with min assist with moderate retro trunk bending and sways noted and cues to come to an upright standing posture when performing the diagonal up swing. Provided verbal cues for posture and core contraction , pt demoed fair understanding of the cues and instruction provided. Therapeutic Exercise Description: Perform therapeutic exercise, progressing as tolerated. Problem:PT Impaired Functional Mobility/Balance Completed Pt. instructed in standing therex 10 reps x 1 set with bilateral UE support of therapist forearms for bilateral hip flex, hip abd, mini squats, and heel raises. Pt. demonstrated fair understanding of the exercises and instruction provided. provided cues to keep head up and for core contraction with moderate trunk leaning noted and fair ability to correct with cues provided. documented in this encounter Care Teams Bread Packer Relationship Specialty Start Date End Date Jaleel Mcgovern MD PCP - General Family Practice 07/18/22 Reynaldo Flannery DO Consulting Physician Cardiology 09/26/17 Guanakito Holland MD Consulting Physician Cardiovascular Disease 07/29/18 documented as of this encounter
--- OUTSIDE RECORDS SUMMARY | 2024-04-11 06:35 | XMS_ITS | Encounter Summary ---
Author Organization [facility] Home Care Servic es Address [address] [place] [address] Phone Care Team Providers Care Director General Name Role Phone Alma Delia Reynaldo Rees DO Unavailable [phone] Guanakito Holland MD Unavailable [phone] Jaleel Mcgovern MD Primary Care Provider [phone] Reason for Visit * Reason Comments Weakness - Generalized * Auth/Cert (Routine) Specialty Diagnoses / Procedures Referred By Contac t Referred To Contact Referral ID Status Reason Start Date Expiration Date Visits Re quested Visits Authorized [id number] 1 1 Encounter Details Date Type Department Care Team (Late st Contact Info) Description 09/12/2022 11:30 AM CDT Home Care Visit [facility] Home Health [address] [address] [address] [place] [address] Lizbet Colbert PTA PT HOME VISIT Social [...] or relatives? 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 Gender Identity Female 10/09/2022 9:08 AM CDT Sexual Orientation Choose not to disclose 2022 9:08 AM CDT documented as of this encounter Last Filed Vital Signs Vital Sign Reading Time Taken Comments Blood Pressure 102/64 09/12/2022 11:40 AM CDT Pulse 54 09/12/2022 11:40 AM CDT Temperature 35.9 ??C (96.7 ??F) 09/12/2022 11:40 AM C DT Respiratory Rate 18 09/12/2022 11:40 AM CDT Oxygen Saturation 96% 09/12/2022 11:40 AM CDT Inhaled Oxygen Concentration - - Weight - - Height - - Body Mass Index - - documented in this encounter Miscellaneous Notes * Home Health Plan for Next Visit - Lizbet Colbert PTA - 09/12/2022 11:36 AM CDT Reason for today's visit strength, balance, transfers, gait and safety training. Discuss plan of care with pt and daughter who remain agreeable. Updated PT Discharge planning ongoing at this time. Plan for next visit to cont to [...] home health visit Disciplines: SN, PT, OT, BRINE SUPERVISOR, RESTORER LACE AND TEXTILES, Skilled Disciplines Monitor patient's vital signs every home health visit. 08/28/2022 Active 1 goal linked to scheduled/docume nted intervention 1 goal intervention scheduled/documen vickie in this visit Safety concerns Disciplines: Skilled Disciplines Alteration in safety 08/28/2022 Active 1 goal linked to scheduled/docume nted intervention 2 goal interventions scheduled/documen vickie in this visit DVT Prevention and Management Disciplines: Skilled Disciplines Management of anticoagulation therapy 08/28/2022 Active 1 goal linked to scheduled/docume nted intervention 1 goal intervention scheduled/documen vickie in this visit Pain Disciplines: Core Disciplines Alteration in comfort 08/28/2022 Active 1 goal linked to scheduled/docume nted intervention 1 goal intervention scheduled/documen vickie in this visit PT Impaired Functional Mobility/Balanc [...] visit during episode of care Description: Home clinical trainer to measure vital signs during every home health visit during episode of care. Monitor patient's vital signs every home health visit No Demonstrate use of safety precautions Description: Patient/caregiver maintains safe home environment as evidenced by remaining free from injury and demonstrates use of safety precautions. Safety concerns No Demonstrate knowledge of anticoagulant therapy Description: Patient/caregiver will verbalize understanding of anticoagulation therapy including adverse signs and symptoms to notify physician or contact EMS. DVT Prevention and Management No Report that pain has been reduced [...] demonstrates use of safety precautions. Instruct on the prevention of deep vein thrombosis Description: Instruct patient/caregiver on signs and symptoms, preventative measures related to DVT, and provide ongoing home support based on patient needs Problem:DVT Prevention and Management Goal:Demonstrate knowledge of anticoagulant therapy Reviewed with pt and daughter on signs and symptoms, preventative measures related to DVT, and provide ongoing home support based on patient needs Instruct on pain management techniques Description: Instruct in pharmacologic and nonpharmacologic pain management techniques. Problem:Pain Goal:Report that pain has been reduced or controlled Completed Reviewed with pt and daughter about pharmacologic and nonpharmacologic pain management techniques. Instructed [...] fair technique and understanding to complete transfers safely. provided cues for use of right UE to complete sit to stand and for controlling stand to sit. Gait/Stair Training Description: Instruct patient/caregiver and perform gait/stair training. Problem:PT Impaired Functional Mobility/Balance Completed Balance Training/Activities Description: Instruct patient/caregiver and perform balance training activities. Problem:PT Impaired Functional Mobility/Balance Completed Patient educated on balance challenges standing with UE support while performing static stance with decresaed tj eyes open and eyes closed, staggered stance eyes open all 30 sec - 1 min bouts each with min to cga. pt noted to display a more upright posture and decrease in sways noted. Pt completed side stepping with bilateral UE support and cga with improved ability to lift and advance right le, heel to toe gait with bilateral UE support and mod assist, and retro gait with bilateral UE support and mod assist with increased retro leaning noted. pt completed stand with single UE support while performing alternating heel touches with cga. Sitting edge of couch performed ipislateral arm and leg lift, contralateral arm and leg left, arm punch and leg kick, arm horizontal abd and leg abd. Provided verbal cues for sequence and posture , pt vocalized understanding of the cues and instruction provided. Therapeutic Exercise Description: Perform therapeutic exercise, progressing as tolerated. Problem:PT Impaired Functional Mobility/Balance Completed Pt. instructed in seated therex 15 reps x 1 set for bilateral hip flex, abd, knee ext, and ankle df/pf. Pt. demonstrated understanding of the exercises and instruction provided.Pt. instructed in standing therex 10 reps x 1 set at countertop for bilateral hip flex, hip ext, knee flex, and heel raises. Pt. demonstrated understanding of the exercises and instruction provided. provided cues for posture and to maintain center of gravity. Pt. instructed in seated therex 10 reps x 1 set for bilateral hip flex, abd, knee ext, and ankle df/pf all with green theraband. Pt. demonstrated understanding of the exercises and instruction provided. documented in this encounter Care Teams Director General Relationship Specialty Start Date End Date Jaleel Mcgovern MD PCP - General Family Practice 07/18/22 Reynaldo Flannery DO Consulting Physician Cardiology 09/26/17 Guanakito Holland MD Consulting Physician Cardiovascular Disease 07/29/18 documented as of this encounter
--- OUTSIDE RECORDS SUMMARY | 2024-04-11 06:35 | XMS_ITS | Encounter Summary ---
Author Organization [facility] Home Care Servic es Address [address] [place] [address] Phone Care Team Providers Care Public Health Officer Name Role Phone Reynaldo Flannery DO Unavailable [phone] Guanakito Holland MD Unavailable [phone] Jaleel Mcgovern MD Primary Care Provider [phone] Reason for Visit * Reason Comments Weakness - Generalized * Auth/Cert (Routine) Specialty Diagnoses / Procedures Referred By Contac t Referred To Contact Referral ID Status Reason Start Date Expiration Date Visits Re quested Visits Authorized [id number] 1 1 Encounter Details Date Type Department Care Team (Late st Contact Info) Description 10/01/2022 11:30 AM CDT Home Care Visit 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 Gender Identity Female 10/09/2022 9:08 AM CDT Sexual Orientation Choose not to disclose 2022 9:08 AM CDT documented as of this encounter Last Filed Vital Signs Vital Sign Reading Time Taken Comments Blood Pressure 102/50 10/01/2022 11:44 AM CDT Pulse 66 10/01/2022 11:44 AM CDT Temperature 36.9 ??C (98.5 ??F) 10/01/2022 11:44 AM C DT Respiratory Rate 18 10/01/2022 11:44 AM CDT Oxygen Saturation 95% 10/01/2022 11:44 AM CDT Inhaled Oxygen Concentration - - Weight - - Height - - Body Mass Index - - documented in this encounter Miscellaneous Notes * Home Health Plan for Next Visit - Lizbet Colbert, COMMERCIAL ESCROW OFFICER - 10/01/2022 11:31 AM CDT Reason for today's visit strength, balance, transfers, gait and safety training. Discuss plan of care with pt and daughter who remain agreeable. Updated PT Discharge planning when goals are met, or pt has achieved max therapeutic benefit from Home Care PTservices. Plan for next visit to cont to progress HEP, strength, balance, gait and transfers to facilitate improved functional ability and mobility and to decrease fall risk. Pt right great toe presented red, no warmth, no swelling and scant serous drainage noted at medial proximal corner of toe nail. Pts daughter stated this was first noted on 09/29/22. She reported that they have beed soaking the foot and applying JEANINE 2-3 times daily and that she believes that it is improving. Pictures taken of the toe and uploaded to pts chart, pts PCP office notified. At this time pt and daughter did not want to make an appt to see her PCP or go to the walk in clinic for assessment as they feel it is improving. Patient/Caregiver educated on signs and symptoms of infections IE: fever, odor, change in color, increased amount of drainage, purulent drainage,and warmth. Patient andfamily verbalized unnderstanding of the education and noted to call PCP if any symptoms should develop. documented in this encounter Plan of Treatment [...] home health visit Disciplines: SN, PT, OT, TITLE ASSISTANT, IT ADMINISTRATIVE ASSISTANT, Skilled Disciplines Monitor patient's vital signs every [...] visit during episode of care Description: Home hyster driver to measure vital signs during every home [...] has been reduced or controlled Completed Reviewed pharmacologic and nonpharmacologic pain management techniques. Gait/Stair Training Description: Instruct patient/caregiver and perform gait/stair training. Problem:PT Impaired Functional Mobility/Balance Completed Pt. instructed on gait training outright making one lap t/o home with distance limited secondary to pain in the right great toe. Pt completed gait training with emphasis on decreasing kimberly and completing with a more upright posture. pt with decreased toe off and stance time right le. Provided pt with verbal cues to improve technique with pt demonstrating understanding of the instruction/cues provided. Therapeutic Exercise Description: Perform therapeutic exercise, progressing as tolerated. Problem:PT Impaired Functional Mobility/Balance Completed Pt. instructed in seated therex 15 reps x 1 set for bilateral hip flex, abd, knee ext, and ankle df/pf with green thera band. Pt. demonstrated understanding of the exercises and instruction provided. Balance Training/Activities Description: Instruct patient/caregiver and perform balance training activities. Problem:PT Impaired Functional Mobility/Balance Completed seated balance, core, and coordination training exercises with pt completing seated crunches 5 x 2 sets, alternating cross body punches, ipsilateral and contralateral arm and leg lifts x 10 reps each with pt sitting without UE support, then completed shoulder flex on one side and lateral side punch. pt completed with challenges with right and retro leaning noted, with cues she was able to correct however unable to maintain. Pt noted to have min to moderate difficulty completing coordination exercises especially with activities crossing midline and contralateral movements. documented in this encounter Care Teams Public Health Officer Relationship Specialty Start Date End Date Jaleel Mcgovern MD PCP - General Family Practice 07/18/22 Reynaldo Flannery DO Consulting Physician Cardiology 09/26/17 Guanakito Holland MD Consulting Physician Cardiovascular Disease 07/29/18 documented as of this encounter
--- OUTSIDE RECORDS SUMMARY | 2024-04-11 06:35 | XMS_ITS | Encounter Summary ---
Author Organization [facility] Healthcare Address [address] [place] [address] Care Team Providers Care Clinical Services Assistant Name Role Phone Reynaldo Flannery DO Unavailable [phone] Guanakito Holland MD Unavailable [phone] Jaleel Mcgovern MD Primary Care Provider [phone] Reason for Visit * Reason Comments Atrial Fibrillation Coronary Artery Disease Heart Failure 6 mo f/u Encounter Details Date Type Department Care Team (Late st Contact Info) Description 01/23/2023 2:15 PM CDT Office Visit [facility] Medical Group Cardiology [address] [place] [id number] Mannie Hernandez MD [address] [place] [address] [place] [address] [id number] Paroxysmal atrial fibrillation (CMS/HCC) (HCC) (Primary Dx); Coronary artery disease involving [place] coronary artery of [place] heart without angina pectoris; History of coronary artery stent placement; Cardiac pacemaker in situ Social History Tobacco [...] or relatives? 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 Gender Identity Female 10/09/2022 9:08 AM CDT Sexual Orientation Choose not to disclose 2022 9:08 AM CDT documented as of this encounter Last Filed Vital Signs Vital Sign Reading Time Taken Comments Blood Pressure 100/60 01/23/2023 2:10 PM CDT Pulse 88 01/23/2023 2:10 PM CDT Temperature - - Respiratory Rate - - Oxygen Saturation 98% 01/23/2023 2:10 PM CDT Inhaled Oxygen Concentration - - Weight 65.3 kg (144 lb) 01/23/2023 2:10 PM CDT Height 154.9 cm (5' 1 ) 01/23/2023 2:10 PM CDT Body Mass Index 27.21 01/23/2023 2:10 PM CDT documented in this encounter Progress Notes * Mannie Hernandez MD - 01/23/2023 2:15 PM CDT [facility] FOLLOW UP 01/23/2023 Abena Giron is a 82 y.o. female who presents for follow up of coronary artery disease, previousinfarction, atrial fibrillation and previously implanted pacemaker device. This is a patient who was seen by me in consultation in 2021 when she transferred her care from her previous training director our practice. Her history dates back to 2014 when she sustained a myocardial infarction and underwent percutaneous revascularization up in [place]. Following that she presented with atrial fibrillation [...] acute ischemic stroke. She was taken to [facility] [place] where s he was found to have an acutely closed left middle cerebral artery. She was treated with TNK and mechanical thrombectomy. The cardiology service was consulted at [facility] because of her low ejection fraction. She was placed on medical therapy for this including metoprolol succinate and losartan. Following that she was discharged to a rehab facility where the losartan was stopped because of hypotension. She returns to the office today for shorter interval follow-up I saw her a couple of months ago. Generally speaking she is doing fairly well. During her last office visit here for her pacemaker checkshe was changed to VVI/CLS pacing mode since she is in chronic atrial fibrillation. She says that she feels that she has less energy since that change was made. I explained to the patient and the daughter that there is no real explainable reason for that since she is been in chronic atrial fibrillation there is generally no benefit at all to atrial sensing and pacing and I would agree with the decision to turn off the atrial functions of her pacemaker device. We then had a long discussion abouther low ejection fraction and about her medical therapy for that. Her blood pressure in the office today is marginal and so I am not going to start any additional vasodilators. REVIEW OF SYSTEMS General ROS: negative for [...] route every day, Disp: 90, Rfl: 3 dapagliflozin (FARXIGA) 10 mg tablet, Take 1 [...] for component: LABALBU PHYSICAL EXAM Vitals BP 100/60 (BP Location: Right arm, Patient Position: Sitting) Pulse 88 Ht 154.9 cm (5' 1 ) Wt 65.3 kg (144 lb) LMP (LMP Unknown) SpO2 98% BMI 27.21 kg/m?? Physical Examination: General appearance - alert, [...] noted ASSESSMENT Abena was seen today for atrial fibrillation, coronary artery disease and heart failure. Diagnoses and all orders for this visit: Paroxysmal atrial fibrillation (CMS/HCC) (HCC) Coronary artery disease involving [place] coronary artery of [place] heart without angina pectoris History of coronary artery stent placement Cardiac pacemaker in situ PLAN/RECOMMENDATIONS For now no change in medical regimen her blood pressure is marginal I can not really expect to be able to start Entresto at this time Follow-up in about 3 months Basic metabolic profile at this time Mannie Hernandez MD documented in this encounter Plan of Treatment Not on file documented as of this encounter Visit Diagnoses Diagnosis Paroxysmal atrial fibrillation (CMS/HCC) (HCC)- Primary Atrial fibrillation Coronary artery disease involving [place] coronary artery of [place] heart without angina pectoris History of coronary artery stent placement Cardiac pacemaker in situ documented in this encounter Care Teams Clinical Services Assistant Relationship Specialty Start Date End Date Jaleel Mcgovern MD PCP - General Family Practice 07/18/22 Reynaldo Flannery DO Consulting Physician Cardiology 09/26/17 Guanakito Holland MD Consulting Physician Cardiovascular Disease 07/29/18 documented as of this encounter
--- OUTSIDE RECORDS SUMMARY | 2024-04-11 06:35 | XMS_ITS | Encounter Summary ---
Author Organization [facility] Healthcare Address [address] [place] [address] Care Team Providers Care Air Tester Name Role Phone Reynaldo Flannery DO Unavailable [phone] Guanakito Holland MD Unavailable [phone] Jaleel Mcgovern MD Primary Care Provider [phone] Reason for Visit * Cardiology (Routine) - Closed Specialty Diagnoses / Procedures Referred By Contac t Referred To Contact Diagnoses Paroxysmal atrial fibrillation (CMS/HCC) (HCC) Sick sinus syndrome (CMS/HCC) (HCC) Cardiac pacemaker in situ Procedures DEVICE CHECK - REMOTE Mannie Hernandez MD [address] [facility] [address] [address] Phone: tel: fax: [facility] Medical Group Referral ID Status Reason Start Date Expiration Date Visits Re quested Visits Authorized [id number] Closed 09/19/2021 03/21/2023 1 1 Encounter Details Date Type Department Care Team (Latest Contact Info) Description 01/07/2023 7:00 AM CDT Ancillary Procedure [facility] Medical Group Cardiology [address] [place] [address] [place] [id number] Paroxysmal atrial fibrillation (CMS/HCC) (HCC); Sick sinus [...] Recorded Patient Health Questionnaire-2 Score 0 08/23/2022 [facility] [place] of Occupat ional Health - Occupational Stress [...] on file 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 Gender Identity Female 10/09/2022 9:08 AM CDT Sexual Orientation Choose not to disclose 2022 9:08 AM CDT documented as of this encounter Plan of Treatment Not on file documented as of this encounter Procedures Procedure Name Priority Date/Time Associated Diagnosis Comments DEVICE CHECK - REMOTE Routine 01/08/2023 11:29 AM CDT Paroxysmal atrial fibrillation (CMS/HCC) (HCC) Sick sinus syndrome (CMS/HCC) (HCC) Cardiac pacemaker in situ documented in this encounter Results * DEVICE CHECK - REMOTE (01/08/2023 11:29 AM CDT) Anatomical Region Laterality Modality Other Narrative 02/05/2023 8:02 AM UNDERGROUND DRILL OPERATOR Biotronik Dual Pacemaker. Dx; SSS, Afib. DOI 07/29/2018-Dr Holland. RA Lead replaced 09/14/18. AV Node Ablation 12/2018. Biotronik remote monitoring. Routine VVI Pacemaker Remote. Transmission attached. Battery status-Ok, 55% remaining to LEANA. Stable lead impedances, pacing and sensing thresholds. Presenting rhythm: Vpaced. FACTORY MAINTENANCE MANAGER-90 %. No Ventricular arrhythmias detected. ?? Medication: Eliquis, Toprol XL. Follow up: Biotronik remote 04/15/2023. Merry Cavanaugh RN Mannie Hernandez MD [facility] PROC EDURES Final Result documented in this encounter Visit Diagnoses Diagnosis Paroxysmal atrial fibrillation (CMS/HCC) (HCC) Atrial fibrillation Sick sinus syndrome (CMS/HCC) (HCC) Sinoatrial node dysfunction Cardiac pacemaker in situ documented in this encounter Care Teams Air Tester Relationship Specialty Start Date End Date Jaleel Mcgovern MD PCP - General Family Practice 07/18/22 Reynaldo Flannery DO Consulting Physician Cardiology 09/26/17 Guanakito Holland MD Consulting Physician Cardiovascular Disease 07/29/18 documented as of this encounter
--- OUTSIDE RECORDS SUMMARY | 2024-04-11 06:35 | XMS_ITS | Encounter Summary ---
Author Organization [facility] Home Care Servic es Address [address] [place] [address] Phone Care Team Providers Care Laboratory Director Name Role Phone Reynaldo Flannery DO Unavailable [phone] Guanakito Holland MD Unavailable [phone] Jaleel Mcgovern MD Primary Care Provider [phone] Reason for Visit * Auth/Cert (Routine) Specialty Diagnoses / Procedures Referred By Contac t Referred To Contact Referral ID Status Reason Start Date Expiration Date Visits Re quested Visits Authorized [id number] 1 1 Encounter Details Date Type Department Care Team (Late st Contact Info) Description 09/26/2022 12:00 PM CDT Home Care Visit [facility] Home Health [address] [address] [address] [place] [address] Morena Holder, OT OT REASSESSMENT Social History Tobacco Use Types Packs/Day [...] or relatives? 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 Gender Identity Female 10/09/2022 9:08 AM CDT Sexual Orientation Choose not to disclose 2022 9:08 AM CDT documented as of this encounter Last Filed Vital Signs Vital Sign Reading Time Taken Comments Blood Pressure 122/64 09/26/2022 12:01 PM CDT Pulse 81 09/26/2022 12:01 PM CDT Temperature 36.8 ??C (98.2 ??F) 09/26/2022 12:01 PM C DT Respiratory Rate 16 09/26/2022 12:01 PM CDT Oxygen Saturation 99% 09/26/2022 12:01 PM CDT Inhaled Oxygen Concentration - - Weight - - Height - - Body Mass Index - - documented in this encounter Miscellaneous Notes * Home Health Visit Narrative - Morena Holder, OT - 09/26/2022 11:59 AM CDT Pt. 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 She was admitted to [facility] from 08/12/2022 - 08/23/2022 (11 days). Pt. lives in a 1 story house and her daughters are rotating to stay the night with her. Pt. has a supportive family who assist in her care. PMH: Aortic aneurysm, PACEMAKER, Arthritis, Atrial fibrillation; outcome: heart ablation, CHF, Depression, Diverticulosis, Dysphagia, GERD, Depression, with Anxiety, DJD, HLD, HTN, [place] 2015, sleep apnea, vertigo PLOF: Pt. indep for ADL's and most IADL's. Pt. did not ambulate with a device. Pt. indep for transfers. Pt.'s goals are to get back to where she was. Pt. was seen for OT reassessment today. OT goals remain appropriate. Plan to continue to see pt. toaddress remaining goals. Pt. in agreement with POC and continuing OT. * Home Health Plan for Next Visit - Morena Holder OT - 09/26/2022 11:59 AM CDT Reason for today's visit OT reassessment Discuss plan of care with pt. and daughter Discharge planning to self and family once OT goal are addressed Plan for next visit IADL's, and bra training documented in this encounter Plan of Treatment Not on file documented as of this encounter Visit Diagnoses Not on filedocumented in this encounter Home Health Visit - Care Plan Visit Details Visit Type -OT Reassessment Discipline -Occupational Therapy Problems Problem Description Start Date Status Goals Interventions Homebound Status Disciplines: Skilled Disciplines Patient's homebound status 08/28/2022 Active 1 goal linked to scheduled/documen vickie intervention 1 goal intervention scheduled/documen vickie in this visit Monitor patient's vital signs every home health visit Disciplines: SN, PT, OT, BENEFITS CONSULTING ANALYST, FINANCIAL SALES CONSULTANT, Skilled Disciplines Monitor patient's vital signs every [...] activity tolerance for functional activity 08/30/2022 Active 1 goal linked to scheduled/documen vickie intervention OT Impaired UE Function and/or Fine Motor Skills Disciplines: Occupational Therapy Impaired functional use of upper extremity 08/30/2022 Active 1 goal linked to scheduled/documen vickie intervention OT Impaired IADLs Disciplines: Occupational Therapy Impaired independence in house management/homema melanie activities 08/30/2022 Active 1 goal linked to scheduled/documen vickie intervention 1 problem intervention scheduled/documen vickie in this visit OT Impaired Functional Mobility/Balance Disciplines: Occupational Therapy Impaired functional mobility/balance 08/30/2022 Active 2 goals linked to scheduled/documen vickie interventions OT Impaired ADLs Disciplines: Occupational Therapy Impaired independence in self-care, ADLs. 08/30/2022 Active 1 goal linked to scheduled/documen vickie intervention 1 problem intervention scheduled/documen vickie in this visit OT Impaired ADLs Disciplines: Occupational Therapy Impaired independence in self-care, ADLs. 08/30/2022 Active 1 goal linked to scheduled/documen vickie intervention 1 problem intervention scheduled/documen vickie in this visit Goals Goal Associated Problem Outcome Goal Met? Visit Notes Patient receives care at the most appropriate care setting Description: Patient receives care at the most appropriate care setting. Homebound Status No Measure vital signs during every home health visit during episode of care Description: Home hrbp to measure vital signs during every home health visit during episode of care. Monitor patient's vital signs every home health visit No Demonstrate use of safety precautions Description: Patient/caregiver maintains safe home environment as evidenced by remaining free from injury and demonstrates use of safety precautions. Safety concerns No Report that pain has been reduced or controlled Description: Patient/caregiver/luci mccarthyy will verbalize satisfaction with the patients level of pain and symptom control. Pain No Improvement in activity tolerance Description: Using energy conservation techniques, patient to perform ADL's and IADL's with a score of 13 or less on the ANABELLE scale using energy conservation techniques by 10/05/22 OT Activity Tolerance/Energy Conservation Progressing No Using energy conservation techniques, patient to perform ADL's and IADL's with a score of 13 or less on the ANABELLE scale using energy conservation techniques by 10/05/22. Pt. rates ADL's as a light activity which is 11 on the ANABELLE scale and IADL's as a hard activity which is a 15 on the ANABELLE scale Performance with HEP Description: Patient/caregiver to perform progressed HEP for UE function and/or fine motor skills by 10/05/22 OT Impaired UE Function and/or Fine Motor Skills Progressing No Patient/caregiver to perform progressed HEP for UE function and/or fine motor skills by 10/05/22. Pt. indep with HEP and red theraputty Improvement in IADL performance Description: Patient to perform light to mod house management/homemaking including doing dishes activities indep by 10/05/22 OT Impaired IADLs Progressing No Patient to perform light to mod house management/homemakin g including doing dishes activities indep by 10/05/22. Pt. is indep for very light IADL's. Improvement in ADL related transfers Description: Patient/caregiver will demonstrate shower transfer indep by 09/21/22 Patient/caregiver will demonstrate sit to stand transfer indep by 09/21/22 OT Impaired Functional Mobility/Balance Progressing No Patient/caregiver will demonstrate shower transfer indep by 09/21/22. sba Patient/caregiver will demonstrate sit to stand transfer indep by 09/21/22. indep Improve balance during functional activities Description: Patient will tolerate and safely perform/participate in ADL's and IADL's by 10/05/22 OT Impaired Functional Mobility/Balance Progressing No Patient will tolerate and safely perform/participate in ADL's and IADL's by 10/05/22. Pt. stated that her balance is getting better Improvement in ADL performance Description: Patient will complete dressing tasks with adaptive equipment requiring indep by 09/21/22 Patient will complete toileting indep by 09/21/22 OT Impaired ADLs Progressing No Patient will complete dressing tasks with adaptive equipment requiring indep by 09/21/22. Pt. indep for all but bra. Patient will complete toileting indep by 09/21/22. Pt. indep Obtaining and use of adaptive equipment/DME Description: Patient educated and/or to obtaining adaptive equipment/DME for completing ADL's and IADL's by 10/05/22 OT Impaired ADLs Progressing No Patient educated and/or to obtaining adaptive equipment/DME for completing ADL's and IADL's by 10/05/22. completing Interventions Intervention Associated Problem/Goal Status Variance Visit [...] pain has been reduced or controlled Scheduled Instruct in house management/homemaking activities Description: Instruct patient/caregiver for improved performance with house management/homemaking activities. Problem:OT Impaired IADLs Completed Educated pt. on how she can use playdoh and then transition to theraputty to practice cutting food. Pt. demonstrated good understanding of information ADL Instruction Description: Instruct patient/caregiver for improved ADL performance. Problem:OT Impaired ADLs Completed Educated pt. on how she can practice hooking bra off of her to increase fine motor skills. Pt. demonstrated good understanding of information Adaptive Equipment/DME Education Description: Recommend and assist with obtaining assistive devices/DME. Problem:OT Impaired ADLs Completed Recommended automatic toothpaste dispenser and no fully closing shampoo and conditioner bottles when showering to increase independence with ADL's. Pt. demonstrated good understanding of information and was agreeable to getting toothpaste dispenser. documented in this encounter Care Teams Laboratory Director Relationship Specialty Start Date End Date Jaleel Mcgovern MD PCP - General Family Practice 07/18/22 Reynaldo Flannery DO Consulting Physician Cardiology 09/26/17 Guanakito Holland MD Consulting Physician Cardiovascular Disease 07/29/18 documented as of this encounter
--- OUTSIDE RECORDS SUMMARY | 2024-04-11 06:35 | XMS_ITS | Encounter Summary ---
Author Organization [facility] Home Care Servic es Address [address] [place] [address] Phone Care Team Providers Care Installation Superintendent Name Role Phone Reynaldo Flannery DO Unavailable [phone] Guanakito Holland MD Unavailable [phone] Jaleel Mcgovern MD Primary Care Provider [phone] Reason for Visit * Auth/Cert (Routine) Specialty Diagnoses / Procedures Referred By Contac t Referred To Contact Referral ID Status Reason Start Date Expiration Date Visits Re quested Visits Authorized [id number] 1 1 Encounter Details Date Type Department Care Team (Latest Contact Info) Description 10/22/2022 9:30 AM CDT Home Care Visit [facility] Home Health [address] [address] [address] [place] [address] Litzy Loya, HONEY PROCESSOR HONEY PROCESSOR DISCIPLINE DISCHARGE Social History Tobacco Use Types Packs/Day [...] Recorded Patient Health Questionnaire-2 Score 0 08/23/2022 [facility] [place] [facility] Occupat ional Health - Occupational Stress [...] on file Legal 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 Gender Identity Female 10/09/2022 9:08 AM CDT Sexual Orientation Choose not to disclose 2022 9:08 AM CDT documented as of this encounter Last Filed Vital Signs Vital Sign Reading Time Taken Comments Blood Pressure 118/64 10/22/2022 9:59 AM CDT Pulse 73 10/22/2022 9:59 AM CDT Temperature 36.3 ??C (97.3 ??F) 10/22/2022 9:59 AM CD T Respiratory Rate 18 10/22/2022 9:59 AM CDT Oxygen Saturation 95% 10/22/2022 9:59 AM CDT Inhaled Oxygen Concentration - - Weight - - Height - - Body Mass Index - - documented in this encounter Miscellaneous Notes * Home Health Visit Narrative - Litzy Zaragoza SLP - 10/22/2022 9:47 AM CDT HONEY PROCESSOR discipline discharge completed this date with all goals met. Patient and patient caregiver demonstrate comprehension and are agreeable with DC. * Home Health Plan for Next Visit - Litzy Zaragoza SLP - 10/22/2022 9:47 AM CDT Reason for today's visit: skilled ST services for swallowing and intelligibility Discuss plan of care with patient and patient caregiver. Discharge planning: DC when goals are met or max potential is reached Plan for next visit: no further HONEY PROCESSOR visits planned documented in this encounter Plan of Treatment Not on file documented as of this encounter Visit Diagnoses Not on filedocumented in this encounter Home Health Visit - Care Plan Visit Details Visit Type -HONEY PROCESSOR Discipline D ischarge Discipline -Speech Language Pathology Problems Problem Description Start Date Status Goals Interve ntions Homebound Status Disciplines: Skilled Disciplines Patient's homebound status 08/28/2022 Active 1 goal linked to scheduled/documen vickie intervention 1 goal intervention scheduled/documen vickie in this visit Monitor patient's vital signs every home health visit Disciplines: SN, PT, OT, HONEY PROCESSOR, SENIOR HEALTH EDUCATOR, Skilled Disciplines Monitor patient's vital signs every home health visit. 08/28/2022 Active 1 goal linked to scheduled/documen vickie intervention 1 goal intervention scheduled/documen vickie in this visit Safety concerns Disciplines: Skilled Disciplines Alteration in safety 08/28/2022 Active 1 goal linked to scheduled/documen vickie intervention 2 goal interventions scheduled/documen vickie in this visit HONEY PROCESSOR Impaired Swallowing Disciplines: Speech Language Pathology Impaired swallow with 09/05/2022 Active 3 goals linked to scheduled/documen vickie interventions 5 problem interventions scheduled/documen vickie in this visit HONEY PROCESSOR oral motor problems Disciplines: Speech Language Pathology Review patient's current oral motor status and create plan. 09/05/2022 Active 2 goals linked to scheduled/documen vickie interventions 2 problem interventions scheduled/documen vickie in this visit Goals Goal Associated Problem Outcome Goal Met? Visit Notes Patient receives care at the most appropriate care setting Description: Patient receives care at the most appropriate care setting. Homebound Status No Measure vital signs during every home health visit during episode of care Description: Home home health clinician to measure vital signs during every home health visit during episode of care. Monitor patient's vital signs every home health visit No Demonstrate use of safety precautions Description: Patient/caregiver maintains safe home environment as evidenced by remaining free from injury and demonstrates use of safety precautions. Safety concerns No Performance with swallowing exercises Description: Patient will complete swallowing exercises at independent level by 10/05/2022. HONEY PROCESSOR Impaired Swallowing Completed Yes Follow swallow precautions Description: Patient will follow swallow precautions at independent level by 09/28/2022. HONEY PROCESSOR Impaired Swallowing Completed Yes Improvement in swallowing ability Description: Patient will tolerate a least restrictive diet without clinical signs or symptoms of aspiration by 10/05/2022. HONEY PROCESSOR Impaired Swallowing Completed Yes Improvement with articulation/intelligibilit y Description: Patient will demonstrate improved articulation/intelligibilit y at functional level by 10/05/2022. HONEY PROCESSOR oral motor problems Completed Yes Performance with HEP Description: Patient/caregiver to be independent with progressed HEP by therapy discharge. HONEY PROCESSOR oral motor problems Completed Yes Interventions Intervention Associated Problem/Goal Status Variance Visit [...] (HEP) Description: Instruct patient/caregiver and perform HEP. Problem:HONEY PROCESSOR Impaired Swallowing Completed Review and continued development of HEP for oral motor and airway protection exercises with patient and patient caregiver demonstrating comprehension and ability to complete independently. Evaluate swallow Description: Evaluate patient swallow function Problem:HONEY PROCESSOR Impaired Swallowing Completed No overt s/s of aspiration noted with consecutive sips of thin liquids from straw. Patient reports no recent difficulties swallowing solids. Instruct on diet with appropriate consistencies Description: Instruct patient/caregiver on diet with appropriate consistencies Problem:HONEY PROCESSOR Impaired Swallowing Completed Patient demonstrates comprehension of diet recommendation for regular texture solids and thin liquids. Instruct appropriate strategies to prevent choking/aspiration Description: Instruct patient/caregiver on appropriate strategies to prevent choking / aspiration Problem:HONEY PROCESSOR Impaired Swallowing Completed Education regarding safe swallow strategies including decreased rate, decreased bolus size, alternating liquids and solids, sitting up straight during and 30 - 45 minutes following oral intake, and adding extra moisture to foods when appropriate (extra sauce, gravy, condiments, syrup, etc) with patient demonstrating comprehension and ability to use independently. Instruct on swallowing exercises Description: Teach swallow exercises. Problem:HONEY PROCESSOR Impaired Swallowing Completed Patient demonstrates ability to complete swallowing exercises independently. Home Exercise Program (HEP) Description: Instruct patient/caregiver and perform HEP. Problem:HONEY PROCESSOR oral motor problems Completed Review and continued development of HEP for intelligibility with patient and patient caregiver demonstrating comprehension. HONEY PROCESSOR speech articulation disorder treatments Description: Therapeutic exercise. Problem:HONEY PROCESSOR oral motor problems Completed Patient demonstrates improved intelligibility at the conversational level at 100%. documented in this encounter Care Teams Installation Superintendent Relationship Specialty Start Date End Date Jaleel Mcgovern MD PCP - General Family Practice 07/18/22 Reynaldo Flannery DO Consulting Physician Cardiology 09/26/17 Guanakito Holland MD Consulting Physician Cardiovascular Disease 07/29/18 documented as of this encounter
--- OUTSIDE RECORDS SUMMARY | 2024-04-11 06:35 | XMS_ITS | Encounter Summary ---
Author Organization [facility] Home Care [facility] es Address [address] [place] [address] Phone Care Team Providers Care Gaming Table Operator Name Role Phone Reynaldo Flannery DO Unavailable [phone] Guanakito Holland MD Unavailable [phone] Jaleel Mcgovern MD Primary Care Provider [phone] Reason for Visit * Reason Comments Weakness - Generalized * Auth/Cert (Routine) Specialty Diagnoses / Procedures Referred By Contac t Referred To Contact Referral ID Status Reason Start Date Expiration Date Visits Re quested Visits Authorized [id number] 1 1 Encounter Details Date Type Department Care Team (Late st Contact Info) Description 10/22/2022 2:15 PM CDT Home Care Visit [facility] Home Health [address] [address] [address] [place] [address] Lizbet Colbert PTA PT HOME VISIT Social [...] or relatives? 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 Gender Identity Female 10/09/2022 9:08 AM CDT Sexual Orientation Choose not to disclose 2022 9:08 AM CDT documented as of this encounter Last Filed Vital Signs Vital Sign Reading Time Taken Comments Blood Pressure 110/62 10/22/2022 2:38 PM CDT Pulse 64 10/22/2022 2:38 PM CDT Temperature 36.3 ??C (97.4 ??F) 10/22/2022 2:38 PM CD T Respiratory Rate 18 10/22/2022 2:38 PM CDT Oxygen Saturation 96% 10/22/2022 2:38 PM CDT Inhaled Oxygen Concentration - - Weight - - Height - - Body Mass Index - - documented in this encounter Miscellaneous Notes * Home Health Plan for Next Visit - Lizbet Colbert PTA - 10/22/2022 2:30 PM CDT Reason for today's visit to prepare for upcomming discharge from Home Care Physical Therapy services. Discuss plan of care with pt and daughter/caregiver who remains agreable. Updated PT Discharge planning initiated and discussed in detail with patient on how to continue with HEP and gait programs upon discharge from Home Care Physical Therapy services. Patient voiced understanding of dc planning. Plan for next visit dc visit with the PT. documented in this encounter Plan of Treatment [...] home health visit Disciplines: SN, PT, OT, OIL WELL SERVICE OPERATOR HELPER, TECHNICAL SUPPORT REPRESENTATIVE, Skilled Disciplines Monitor patient's vital signs every [...] visit during episode of care Description: Home steaming cabinet tender to measure vital signs during every [...] pain has been reduced or controlled Completed pt with no c/o pain other than occassional pain in right hand. pt and family aware of pain management techniques. Home Exercise Program (HEP) Description: Instruct patient/caregiver and perform HEP. Problem:PT Impaired Functional Mobility/Balance Completed Reviewed with patient. Instructed to continue HEP X 20 reps BID as tolerated with handouts for reference. Patient verbalizes good understanding of instructions and provides safe verbalization/return demonstration of instructions Gait/Stair Training Description: Instruct patient/caregiver and perform gait/stair training. Problem:PT Impaired Functional Mobility/Balance Completed Pt. instructed on gait training outright t/o home, down/up steps and outside on driveway and on grass in back yard. Pt completed gait training with increased tj, decreased foot clearance, step height and heel strike right le. pt completed steps with supervision assist with use of rail and a sideways technique as this is how she completed prior to stroke and wanted to stay with that technique. pt completed gait outside with supervision assist on driveway and patio and sba on grass. Provided pt with verbal cues to improve technique with pt demonstrating understanding of the instruction/cues provided. Balance Training/Activities Description: Instruct patient/caregiver and perform balance training activities. Problem:PT Impaired Functional Mobility/Balance Completed Patient educated on balance challenges standing with support while performing static stance with decresaed tj eyes open and eyes closed, staggered stance eyes open all 30 sec holds x 3 bouts each with sba with min sways noted. Pt completed with bilateral UE support single leg stance with min assist to maintain. improved ability to maintain right hip stability with no lateral give noted. provided cues for core contraction and pt vocalized understanding of the cues and instruction provided. documented in this encounter Care Teams Gaming Table Operator Relationship Specialty Start Date End Date Jaleel Mcgovern MD PCP - General Family Practice 07/18/22 Reynaldo Flannery DO Consulting Physician Cardiology 09/26/17 Guanakito Holland MD Consulting Physician Cardiovascular Disease 07/29/18 documented as of this encounter
--- OUTSIDE RECORDS SUMMARY | 2024-04-11 06:35 | XMS_ITS | Encounter Summary ---
Author Organization [facility] Home [facility] es Address [address] [place] [address] Phone Care Team Providers Care Counter Control Operator Name Role Phone Reynaldo Flannery DO Unavailable [phone] Guanakito Holland MD Unavailable [phone] Jaleel Mcgovern MD Primary Care Provider [phone] Reason for Visit * Auth/Cert (Routine) Specialty Diagnoses / Procedures Referred By Contac t Referred To Contact Referral ID Status Reason Start Date Expiration Date Visits Re quested Visits Authorized [id number] 1 1 Encounter Details Date Type Department Care Team (Late st Contact Info) Description 09/19/2022 9:30 AM CDT Home Care Visit [facility] Home Health [address] [address] [address] [place] [address] Litzy Zaragoza, ACTIVITIES ATTENDANT ACTIVITIES ATTENDANT HOME VISIT Social History Tobacco Use Types [...] Recorded Patient Health Questionnaire-2 Score 0 08/23/2022 [facility] Occupat ional Health - Occupational [...] on file Legal 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 Gender Identity Female 10/09/2022 9:08 AM CDT Sexual Orientation Choose not to disclose 2022 9:08 AM CDT documented as of this encounter Last Filed Vital Signs Vital Sign Reading Time Taken Comments Blood Pressure 104/66 09/19/2022 9:50 AM CDT Pulse 83 09/19/2022 9:50 AM CDT Temperature 35.9 ??C (96.7 ??F) 09/19/2022 9:50 AM CD T Respiratory Rate 18 09/19/2022 9:50 AM CDT Oxygen Saturation 97% 09/19/2022 9:50 AM CDT Inhaled Oxygen Concentration - - Weight - - Height - - Body Mass Index - - documented in this encounter Miscellaneous Notes * Home Health Plan for Next Visit - Litzy Zaragoza SLP - 09/19/2022 10:25 AM CDT Reason for today's visit: skilled ST services for communiction and swallowing Discuss plan of care with patient and patient caregiver. Discharge planning: DC when goals are met or max potential is reached Plan for next visit: therex, education, HEP development * Home Health Visit Narrative - Litzy Zaragoza ACTIVITIES ATTENDANT - 09/19/2022 9:[address] services provided this date for communication and swallowing including oral motor and airway protection exercises, review of safe swallow precautions, and continued HEP development. Patient will benefit from further skilled ST services for communication and swallowing including therapeutic exercise, [...] - Care Plan Visit Details Visit Type -ACTIVITIES ATTENDANT Home Visit Discipline -Speech Language Pathology Problems Problem Description Start Date Status Goals Interve ntions Homebound Status Disciplines: Skilled Disciplines Patient's homebound status 08/28/2022 Active 1 goal linked to scheduled/documen vickie intervention 1 goal intervention scheduled/documen vickie in this visit Monitor patient's vital signs every home health visit Disciplines: SN, PT, OT, ACTIVITIES ATTENDANT, FOOD ASSEMBLER, Skilled Disciplines Monitor patient's vital signs every home health visit. 08/28/2022 Active 1 goal linked to scheduled/documen vickie intervention 1 goal intervention scheduled/documen vickie in this visit Safety concerns Disciplines: Skilled Disciplines Alteration in safety 08/28/2022 Active 1 goal linked to scheduled/documen vickie intervention 2 goal interventions scheduled/documen vickie in this visit ACTIVITIES ATTENDANT Impaired Swallowing Disciplines: Speech Language Pathology Impaired swallow with 09/05/2022 Active - 4 problem interventions scheduled/documen vickie in this visit ACTIVITIES ATTENDANT oral motor problems Disciplines: Speech Language Pathology [...] visit during episode of care Description: Home distance education teacher to measure vital signs during every home [...] (HEP) Description: Instruct patient/caregiver and perform HEP. Problem:ACTIVITIES ATTENDANT Impaired Swallowing Completed Review and continued development of HEP for swallowing abilities with patient and patient caregiver demonstrating comprehension. Instruct on diet with appropriate consistencies Description: Instruct patient/caregiver on diet with appropriate consistencies Problem:ACTIVITIES ATTENDANT Impaired Swallowing Completed Education and review of diet recommendation of soft solids, discussed patient specific questions regarding foods she can/can't have (spaghetti ok but cut up noodles) with patient and patient caregiver demonstrating comprehension. Instruct appropriate strategies to prevent choking/aspiration Description: Instruct patient/caregiver on appropriate strategies to prevent choking / aspiration Problem:ACTIVITIES ATTENDANT Impaired Swallowing Completed Review of safe swallow strategies including decreased rate, decreased bolus size, alternating liquids and solids, and sitting up straight during and 30 minutes following oral intake with patient demonstrating comprehension. Instruct on swallowing exercises Description: Teach swallow exercises. Problem:ACTIVITIES ATTENDANT Impaired Swallowing Completed Completed oral motor airway protection exercises including lingual retraction, protrusion, and retraction, labial protrusion, retraction, closure, and lateralization, cinthia, and CTAR with skilled v/v instruction provided as needed. Home Exercise Program (HEP) Description: Instruct patient/caregiver and perform HEP. Problem:ACTIVITIES ATTENDANT oral motor problems Completed Review and continued development of HEP for swallowing and communication with patient and patient caregiver demonstrating comprehension. documented in this encounter Care Teams Counter Control Operator Relationship Specialty Start Date End Date Jaleel Mcgovern MD PCP - General Family Practice 07/18/22 Reynaldo Flannery DO Consulting Physician Cardiology 09/26/17 Guanakito Holland MD Consulting Physician Cardiovascular Disease 07/29/18 documented as of this encounter
--- OUTSIDE RECORDS SUMMARY | 2024-04-11 06:35 | XMS_ITS | Encounter Summary ---
Author Organization [facility] Home Care [facility] es Address [address] [place] [address] Phone Care Team Providers Care Member Of Congress Name Role Phone Reynaldo Flannery DO Unavailable [phone] Guanakito Holland MD Unavailable [phone] Jaleel Mcgovern MD Primary Care Provider [phone] Reason for Visit * Reason Comments Weakness - Generalized * Auth/Cert (Routine) Specialty Diagnoses / Procedures Referred By Contac t Referred To Contact Referral ID Status Reason Start Date Expiration Date Visits Re quested Visits Authorized [id number] 1 1 Encounter Details Date Type Department Care Team (Late st Contact Info) Description 10/17/2022 11:45 AM CDT Home Care Visit [facility] Home Health [address] [address] [address] [place] [address] Lizbet Colbert PTA PT HOME VISIT Social [...] or relatives? 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 Gender Identity Female 10/09/2022 9:08 AM CDT Sexual Orientation Choose not to disclose 2022 9:08 AM CDT documented as of this encounter Last Filed Vital Signs Vital Sign Reading Time Taken Comments Blood Pressure 98/60 10/17/2022 11:55 AM CDT Pulse 78 10/17/2022 11:55 AM CDT Temperature 36.4 ??C (97.5 ??F) 10/17/2022 11:55 AM C DT Respiratory Rate 18 10/17/2022 11:55 AM CDT Oxygen Saturation 93% 10/17/2022 11:55 AM CDT Inhaled Oxygen Concentration - - Weight - - Height - - Body Mass Index - - documented in this encounter Miscellaneous Notes * Home Health Plan for Next Visit - Lizbet Colbert PTA - 10/17/2022 11:45 AM CDT Reason for today's visit strength, balance, transfers, gait and safety training. Discuss plan of care with pt who remains agreeable. Updated PT Discharge planning when goals [...] home health visit Disciplines: SN, PT, OT, NUCLEAR CRITICALITY SAFETY ENGINEER, AIR CREW OFFICER, Skilled Disciplines Monitor patient's vital signs every [...] visit during episode of care Description: Home hair or beauty salon assistant to measure vital signs during every home [...] controlled Completed pt with no c/o pain Therapeutic Exercise Description: Perform therapeutic exercise, progressing as tolerated. Problem:PT Impaired Functional Mobility/Balance Completed Pt. instructed in seated therex 10 reps x 1 set with blue theraband for bilateral hip flex, abd, knee ext, and ankle df/pf. Pt. demonstrated understanding of the exercises and instruction provided. performed seated contralateral and ipsilateral UE and LE activities. pt improving with ipsilateral movement and cont to struggle with contralateral activities. on steps, with hand rail support, pt completed 10 reps of forward and right lateral step ups with sba to cga. pt noted to have decreased ability to achieve pull push through the right knee which causes inability to complete terminal hip and knee ext right upon completing the step up. Transfer training Description: Instruct patient/caregiver and perform transfer training. Problem:PT Impaired Functional Mobility/Balance .Pt cont to complete sit to stand with increased tj and decreased anterior weight shift. Pt demoes decreased handplacement and control of stand to sit about 50% of the transfers, Balance Training/Activities Description: Instruct patient/caregiver and perform balance training activities. Problem:PT Impaired Functional Mobility/Balance Patient educated on balance challenges standing with support while performing static stance with decresaed tj eyes open and eyes closed, staggered stance eyes open all 30 sec holds x 3 bouts each with cga to sba with left leaning noted. Provided verbal cues for core contraction and to increase weight shift to the right side. pt vocalized understanding of the cues and instruction provided. documented in this encounter Care Teams Member Of Congress Relationship Specialty Start Date End Date Jaleel Mcgovern MD PCP - General Family Practice 07/18/22 Reynaldo Flannery DO Consulting Physician Cardiology 09/26/17 Guanakito Holland MD Consulting Physician Cardiovascular Disease 07/29/18 documented as of this encounter
--- OUTSIDE RECORDS SUMMARY | 2024-04-11 06:35 | XMS_ITS | Encounter Summary ---
Author Organization [facility] Home Care Servic es Address [address] [place] [address] Phone Care Team Providers Care Saw Runner Name Role Phone Reynaldo Flannery DO Unavailable [phone] Guanakito Holland MD Unavailable [phone] Jaleel Mcgovern MD Primary Care Provider [phone] Reason for Visit * Auth/Cert (Routine) Specialty Diagnoses / Procedures Referred By Contac t Referred To Contact Referral ID Status Reason Start Date Expiration Date Visits Re quested Visits Authorized [id number] 1 1 Encounter Details Date Type Department Care Team (Late st Contact Info) Description 09/27/2022 11:00 AM CDT Home Care Visit [facility] Home Health [address] [address] [address] [place] [address] Litzy Zaragoza, HOT SHOT HOT SHOT HOME VISIT Social History Tobacco Use Types [...] Recorded Patient Health Questionnaire-2 Score 0 08/23/2022 [facility] of Occupat ional Health - Occupational [...] on file 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 Gender Identity Female 10/09/2022 9:08 AM CDT Sexual Orientation Choose not to disclose 2022 9:08 AM CDT documented as of this encounter Last Filed Vital Signs Vital Sign Reading Time Taken Comments Blood Pressure 114/68 09/27/2022 11:48 AM CDT Pulse 96 09/27/2022 11:48 AM CDT Temperature 36.2 ??C (97.2 ??F) 09/27/2022 11:48 AM C DT Respiratory Rate 18 09/27/2022 11:48 AM CDT Oxygen Saturation 97% 09/27/2022 11:48 AM CDT Inhaled Oxygen Concentration - - Weight - - Height - - Body Mass Index - - documented in this encounter Plan of Treatment Not on file documented as of this encounter Visit Diagnoses Not on filedocumented in this encounter Home Health Visit - Care Plan Visit Details Visit Type -HOT SHOT Home Visit Discipline -Speech Language Pathology Problems Problem Description Start Date Status Goals Interve ntions Homebound Status Disciplines: Skilled Disciplines Patient's homebound status 08/28/2022 Active 1 goal linked to scheduled/documen vickie intervention 1 goal intervention scheduled/documen vickie in this visit Monitor patient's vital signs every home health visit Disciplines: SN, PT, OT, HOT SHOT, APRON CLEANER, Skilled Disciplines Monitor patient's vital signs every home health visit. 08/28/2022 Active 1 goal linked to scheduled/documen vickie intervention 1 goal intervention scheduled/documen vickie in this visit Safety concerns Disciplines: Skilled Disciplines Alteration in safety 08/28/2022 Active 1 goal linked to scheduled/documen vickie intervention 2 goal interventions scheduled/documen vickie in this visit HOT SHOT Impaired Swallowing Disciplines: Speech Language Pathology Impaired swallow with 09/05/2022 Active - 3 problem interventions scheduled/documen vickie in this visit HOT SHOT oral motor problems Disciplines: Speech Language Pathology [...] visit during episode of care Description: Home furniture duster to measure vital signs during every home [...] (HEP) Description: Instruct patient/caregiver and perform HEP. Problem:HOT SHOT Impaired Swallowing Completed Review and continued development of HEP for oral motor and airway protection exercises with patient and patient caregiver demonstrating comprehension. Instruct appropriate strategies to prevent choking/aspiration Description: Instruct patient/caregiver on appropriate strategies to prevent choking / aspiration Problem:HOT SHOT Impaired Swallowing Completed Review of safe swallow strategies including decreased rate, decreased bolus size, alternating liquids and solids, and sitting up straight during and 30 minutes following oral intake with patient demonstrating comprehension. Instruct on swallowing exercises Description: Teach swallow exercises. Problem:HOT SHOT Impaired Swallowing Completed Completed oral motor and airway protection exercises including lingual retraction, lateralization, and rotation, labial retraction protrusion, Home Exercise Program (HEP) Description: Instruct patient/caregiver and perform HEP. Problem:HOT SHOT oral motor problems Completed Review and continued development of HEP for communication with patient and patient caregiver demonstrating comprehension. documented in this encounter Care Teams Saw Runner Relationship Specialty Start Date End Date Jaleel Mcgovern MD PCP - General Family Practice 07/18/22 Reynaldo Flannery DO Consulting Physician Cardiology 09/26/17 Guanakito Holland MD Consulting Physician Cardiovascular Disease 07/29/18 documented as of this encounter
--- OUTSIDE RECORDS SUMMARY | 2024-04-11 06:35 | XMS_ITS | Encounter Summary ---
Author Organization [facility] Healthcare Address [address] [place] [address] Care Team Providers Care Cigar Head Holer Name Role Phone Reynaldo Flannery DO Unavailable [phone] Guanakito Holland MD Unavailable [phone] Jaleel Mcgovern MD Primary Care Provider [phone] Encounter Details Date Type Department Care Team (Late st Contact Info) Description 03/06/2023 Telephone [facility] Medical Group Cardiology [address] [address] Mannie Hernandez MD [address] [facility] [address] [facility] [address] [place] [address] Social History Tobacco Use Types [...] or relatives? 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 Please advise. RDIST CHIEF * Telephone Encounter - Ginny Arauz - 03/06/2023 9:00 AM CST Pt daughter called states Rosuvastatin has been causing pt severe pain all over her body in her joints. States pt took herself off of Rosuvastatin on 02/23 and since then she has had no pain. Mari wants to know if Rosuvastatin can be decreased to half a tablet daily if not wants to know if there isan alternative. Contact: RDIST CHIEF documented in this encounter Plan of Treatment Not on file documented as of this encounter Visit Diagnoses Not on filedocumented in this encounter Care Teams Cigar Head Holer Relationship Specialty Start Date End Date Jaleel Mcgovern MD PCP - General Family Practice 07/18/22 Reynaldo Flannery DO Consulting Physician Cardiology 09/26/17 Guanakito Holland MD Consulting Physician Cardiovascular Disease 07/29/18 documented as of this encounter
--- OUTSIDE RECORDS SUMMARY | 2024-04-11 06:35 | XMS_ITS | Encounter Summary ---
Author Organization [facility] Medical Group Address [address] [facility] [address] [place] [address] Care Team Providers Care Vp Customer Development Name Role Phone Reynaldo Flannery DO Unavailable [phone] Guanakito Holland MD Unavailable [phone] Jaleel Mcgovern MD Primary Care Provider [phone] Encounter Details Date Type Department Care Team (Late st Contact Info) Description 11/01/2022 Telephone [facility] Medical Group Cardiology [address] [facility] [address] [facility] [address] [place] [address] Mannie Hernandez MD [address] [facility] [address] [place] [address] Social History Tobacco Use Types [...] or relatives? Once a week 08/12/2022 Attends Orthodox Services Not on file 08/12 Active Member [...] place to sleep or slept in a [place] health care facility (including now)? No 08/12/2022 Personal Safety Answer Date Recorded Have you ever been in or are you currently in a harmful physical or emotional relationship or is someone making you feel afraid or unsafe? 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 It is not increased or brought on by activity. Currently pts hr 83. Daughter states they were advised to make an appt with cardiology regarding these symptoms. Pt scheduled to see [facility] next Friday at the [place] office. Daughter appreciative of return call and appt. Advised to call the office with any worsening symptoms, if severe proceed to ER. Pt and daughter verbalizes understanding. * Telephone Encounter - Tisha Garnica - 11/01/2022 10:33 AM CDT Pt daughter states pt has been experiencing SOB for the past couple of weeks. Contact:[phone] documented in this encounter Plan of Treatment Not on file documented as of this encounter Visit Diagnoses Not on filedocumented in this encounter Care Teams Vp Customer Development Relationship Specialty Start Date End Date Jaleel Mcgovern MD PCP - General Family Practice 07/18/22 Reynaldo Flannery DO Consulting Physician Cardiology 09/26/17 Guanakito Holland MD Consulting Physician Cardiovascular Disease 07/29/18 documented as of this encounter
--- OUTSIDE RECORDS SUMMARY | 2024-04-11 06:35 | XMS_ITS | Encounter Summary ---
Author Organization [facility] Home Care Servic es Address [address] [place] [address] Phone Care Team Providers Care Anesthesia Assistant Name Role Phone Reynaldo Flannery DO Unavailable [phone] Guanakito Holland MD Unavailable [phone] Jaleel Mcgovern MD Primary Care Provider [phone] Reason for Visit * Auth/Cert (Routine) Specialty Diagnoses / Procedures Referred By Contac t Referred To Contact Referral ID Status Reason Start Date Expiration Date Visits Re quested Visits Authorized [id number] 1 1 Encounter Details Date Type Department Care Team (Late st Contact Info) Description 10/10/2022 1:00 PM CDT Home Care Visit [facility] Home Health [address] [address] [address] [place] [address] Morena Holder, OT OT REASSESSMENT [...] Recorded Patient Health Questionnaire-2 Score 0 08/23/2022 [facility] - Occupational Stress Questionnaire Answer Date Recorded [...] on file 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 Gender Identity Female 10/09/2022 9:08 AM CDT Sexual Orientation Choose not to disclose 2022 9:08 AM CDT documented as of this encounter Last Filed Vital Signs Vital Sign Reading Time Taken Comments Blood Pressure 121/70 10/10/2022 12:59 PM CDT Pulse 84 10/10/2022 12:59 PM CDT Temperature 36.2 ??C (97.1 ??F) 10/10/2022 12:59 PM C DT Respiratory Rate 18 10/10/2022 12:59 PM CDT Oxygen Saturation 98% 10/10/2022 12:59 PM CDT Inhaled Oxygen Concentration - - Weight - - Height - - Body Mass Index - - documented in this encounter Miscellaneous Notes * Home Health Visit Narrative - Morena Holder, OT - 10/10/2022 12:49 PM CDT Pt. 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 She was admitted to [facility] from 08/12/2022 - 08/23/2022 (11 days). Pt. [...] appropriate. Plan to continue to see pt. 2 times a week for 1 week and 1 time a week for 1 week to address remaining goals. Pt. in agreement with POC and continuing OT. * Home Health Plan for Next Visit - Morena Holder OT - 10/10/2022 12:49 PM CDT Reason for today's visit reassessment and balance Discuss plan of care with pt. and daughter Discharge planning to self and family once OT goals are addressed Plan for next visit bra training and IADL/kitchen training documented in this encounter Plan of [...] home health visit Disciplines: SN, PT, OT, WOOD TILE INSTALLER, WET CHEMISTRY ANALYST, Skilled Disciplines Monitor patient's vital signs every [...] linked to scheduled/documen vickie intervention OT Impaired Functional Mobility/Balance Disciplines: Occupational Therapy Impaired functional mobility/balance 08/30/2022 Active 2 goals linked to scheduled/documen vickie interventions 1 problem intervention scheduled/documen vickie in this visit OT Impaired ADLs Disciplines: Occupational Therapy Impaired independence in self-care, ADLs. 08/30/2022 Active 1 goal linked to scheduled/documen vickie intervention OT Impaired ADLs Disciplines: Occupational Therapy Impaired independence in self-care, ADLs. 08/30/2022 Active 1 goal linked to scheduled/documen vickie intervention Goals Goal Associated Problem Outcome Goal Met? Visit Notes Patient receives care at the most appropriate care setting Description: Patient receives care at the most appropriate care setting. Homebound Status No Measure vital signs during every home health visit during episode of care Description: Home teacher citizenship to measure vital signs during every home [...] techniques by 10/05/22 OT Activity Tolerance/Energy Conservation Completed Yes Using energy conservation techniques, patient to perform ADL's and IADL's with a score of 13 or less on the ANABELLE scale using energy conservation techniques by 10/05/22. Pt. rated ADL's as a light activity which is a 11 on the ANABELLE scale and IALD's as a somewhat hard activity which is a 13 on the ANABELLE scale Performance with HEP Description: Patient/caregiver to perform progressed HEP for UE function and/or fine motor skills by 10/26/22 OT Impaired UE Function and/or Fine Motor Skills Progressing No Patient/caregiver to perform progressed HEP for UE function and/or fine motor skills by 10/05/22. Pt. indep with red theraputty, yellow therbar, and yellow therband Improvement in IADL performance Description: Patient to perform light to mod house management/homemaking including doing dishes activities indep by 10/26/22 OT Impaired IADLs Progressing No Patient to perform light to mod house management/homemakin g including doing dishes activities indep by 10/05/22. Pt. is indep for light IADL's, dep for mod to heavy IADL's. Improvement in ADL related transfers Description: Patient/caregiver will demonstrate shower transfer indep by 09/21/22 Patient/caregiver will demonstrate sit to stand transfer indep by 09/21/22 OT Impaired Functional Mobility/Balance Completed Yes Patient/caregiver will demonstrate shower transfer indep by 09/21/22. indep Patient/caregiver will demonstrate sit to stand transfer indep by 09/21/22. indep Improve balance during functional activities Description: Patient will tolerate and safely perform/participate in ADL's and IADL's by 10/26/22 OT Impaired Functional Mobility/Balance Progressing No Patient will tolerate and safely perform/participate in ADL's and IADL's by 10/05/22. Pt. stated that her balance is getting better Improvement in ADL performance Description: Patient will complete dressing tasks with adaptive equipment requiring indep by 10/26/22 OT Impaired ADLs Progressing No Patient will complete dressing tasks with adaptive equipment requiring indep by 09/21/22. Pt. indep for all but getting bra on Patient will complete toileting indep by 09/21/22. Pt. indep Obtaining and use of adaptive equipment/DME Description: Patient educated and/or to obtaining adaptive equipment/DME for completing ADL's and IADL's by 10/26/22 OT Impaired ADLs Progressing No Patient educated [...] Activity Tolerance/Energy Conservation Completed Educated pt. on how its important to still listening to your body and not do to much at one time now that she is doing more around the house. Pt. demonstrated good understanding of information Balance Activities Description: Balance Activities. Problem:OT Impaired Functional Mobility/Balance Completed Educated pt. on how to do 5 point reaching exercises to work on balance. Pt. completed 5 point reach 2 times with both hands. Pt. demonstrated good understanding of information documented in this encounter Care Teams Anesthesia Assistant Relationship Specialty Start Date End Date Jaleel Mcgovern MD PCP - General Family Practice 07/18/22 Reynaldo Flannery DO Consulting Physician Cardiology 09/26/17 Guanakito Holland MD Consulting Physician Cardiovascular Disease 07/29/18 documented as of this encounter
--- OUTSIDE RECORDS SUMMARY | 2024-04-11 06:35 | XMS_ITS | Encounter Summary ---
Author Organization [facility] Address [address] [place] [address] Phone Care Team Providers Care Escrow Manager Name Role Phone Reynaldo Flannery DO Unavailable [phone] Guanakito Holland MD Unavailable [phone] Jaleel Mcgovern MD Primary Care Provider [phone] Reason for Visit * Consultation (Routine) - Closed Specialty Diagnoses / Procedures Referred By Contac t Referred To Contact Neurology Diagnoses Cerebrovascular accident (CVA), unspecified mechanism (HCC) Raudel Hardwick, PRECIOUS Phone: tel: fax: [facility] Stroke [address] [place] [address] Phone: tel: fax: Referral ID Status Reason Start Date Expiration Date V isits Requested Visits Authorized [id number] Closed Specialty Services Required 09/03/2022 10/03/2023 1 1 Encounter Details Date Type Department Care Team (Late st Contact Info) Description 10/11/2022 10:00 AM CDT Office Visit [facility] Stroke [address] [place] [address] Ade Villavicencio MD [address] [place] [address] Chronic ischemic left MCA stroke (Primary Dx); Cerebrovascular accident (CVA), unspecified mechanism (HCC); History of hyperlipidemia, mixed; Right sided weakness Social History Tobacco Use Types Packs/Day Years Used Date Smoking Tobacco: Former Cigarettes Q uit: 1975 Smokeless Tobacco: Never Tobacco Cessation:Counseling Given: No Alcohol Use Standard Drinks/Week Comments No 0 [...] or relatives? Once a week 08/12/2022 Attends [employer] Not on file 08/12 Active Member [...] Health Questionnaire-2 Score 0 08/23/2022 [facility] - Occupational Stress [...] on file Legal Sex Female 11:18 AM ORTHOTIST OR PROSTHETIST Gender Identity Female 10/09/2022 9:08 AM CDT Sexual Orientation Choose not to disclose 2022 9:08 AM CDT documented as of this encounter Last Filed Vital Signs Vital Sign Reading Time Taken Comments Blood Pressure 107/71 10/11/2022 9:27 AM CDT Pulse 84 10/11/2022 9:27 AM CDT Temperature - - Respiratory Rate - - Oxygen Saturation - - Inhaled Oxygen Concentration - - Weight 64.9 kg (143 lb) 10/11/2022 9:27 AM CDT Height 154.9 cm (5' 1 ) 10/11/2022 9:27 AM CDT Body Mass Index 27.02 10/11/2022 9:27 AM CDT documented in this encounter Progress Notes * Ade Villavicencio MD - 10/11/2022 10:00 AM CDT Vascular Neurology - Office Visit Note [id number] [facility] 6th [address], [address] [facility] Patient Name: Abena Giron Medical Record Number (MRN): [id number] Date of (): 1940 Encounter Date: 10/11/2022 Chief Complaint: follow-up of hospitalization Referring Provider: Raudel Hardwick, * HPI: Abena Giron is a 82 y.o. right-handed woman with the following vascular risk factors: [] Hypertension. Reports home blood pressure monitoring with a systolic range of 100-120. [x] Hyperlipidemia. LDL 98 (08/03/22). Tolerating statin without gait limiting myalgias. [] Diabetes. Glycemic control is adaquate, HbA1c 6.0 (08/03/2022). [x] Coronary Artery Disease. MA s/p PCI in 2014. On ASA 81mg, follows w/ dry pan feeder, in [place]. [x] Atrial Fibrillation. Sp AV node ablation x2 and PPM placement for SSS. On anticoagulation with eliquis 5mg. [x] Congestive Heart Failure. EF 20%. On anticoagulation with Eliquis 5mg BID. [] Obesity. [] Sleep Apnea. [x] Prior Stroke. LMCA territory. Etiology likely 2/2 Afib vs LICA stenosis. [] Hypercoagulability. [x] Tobacco Use. Former smoker, stopped in the . Counseled on cessation. [] Alcohol Abuse. Counseled on cessation. Patient presents for a follow up evaluation after suffering a L M1 LVO in July 2022. Patient was in her usual state of health until 08/03 when she suddenly developed weakness on her R side and difficulty speaking. Patient presented to [facility] in [place] and was found to have an NIHSS of 23. CTH was significant for a hyperdense LMCA. CTA H/N confirmed a LM1 LVO, as well as b/l ICA stenosis (R=50%, L 80%). Patient was treated with TNK and transferred to [facility] for EVT, which was successful,TICI2b. During her hospitalization patient was found to have worsening CHFrEF. TTE w/ EF 20% w/ severe global LV dysfunction, no intracardiac thrombus or shunt. Of note, patient was previously prescribed eliquis for Afib, however had not been taking it. Patient was discharged to [facility] on Eliquis 5mg BID and Crestor 10mg for secondary stroke prevention, as well as CHF medication. Patient reports compliance with medications and denies any associated side effects or reoccurrence of stroke like symptoms. Patients untreated b/l ICA stenosis was discussed with both her and her daughter, including therisks of having another ischemic stroke, as well as the surgical options including CEA and FABIAN. Patient does not wish to pursue any intervention now or in the future. Patient will be following up with her Laser Printing Operator in October for continued management of her AFib and CHF. Patient is currently living with her youngest daughter and is able to perform all ADL, but is still not driving or cooking. She is participating in PT/OT/TECHNICAL SOLUTION ARCHITECT 3x a week and has home help. Patient is ambulating independently athome and denies any falls since her hospitalization. Patient is presently in a wheelchair, which she only uses if traveling long distances. Patient reports her memory has been appropriate without episodes of confusion and her mood is good without emotional lability. History obtained from face to face discussion with patient and personal review of prior internal notes. REVIEW OF SYSTEMS: General: [] Fatigue [] Weight loss [] Weight gain Eyes: [] Loss of vision [] Diplopia [] Photosensitivity Ears/Nose/Throat: [] Hearing loss [] Tinnitus [] Vertigo Cardiovascular: [] Syncope [] Chest pain [] Palpitations Respiratory: [] Cough [] Dyspnea [] Snoring Endocrine: [] Cold intolerance [] Heat intolerance [] Increased thirst Gastrointestinal: [] Nausea [] Vomiting [] Constipation Genitourinary: [] Dysuria [] Incontinence [] Urinary retention Integumentary: [] Rash [] Easy bruising [] Flushing Musculoskeletal: [] Neck stiffness [] Neck pain [] Back pain [] Myalgia [] Arthralgia [] Recent trauma [] Recent falls Psychiatric: [] Depressed mood [] Elevated mood [] Hallucinations [] Delusions Neurological: [] Confusion [] Convulsion [] Headache [] Aphasia [] Dysarthria [] Dysphagia [] Weakness [] Sensory loss [] Tremor [] Problems with gait [] Problems with balance [] Loss of consciousness [] Difficulty with memory MEDICAL HISTORY: Past Medical History: - Per HPI. Reviewed in EMR Past Surgical History: - Reviewed in EMR Social History: - Per HPI. Reviewed in EMR Family History: - Non-contributory to present illness. Medications: Current Outpatient Medications on File Prior to Visit Medication Sig Dispense Refill acetaminophen (TYLENOL) 160 mg chewable tablet Take 1 tablet (160 mg total) by mouth every 6 (six) hours as needed for pain apixaban (ELIQUIS) 5 mg tablet Take 1 tablet (5 mg total) by mouth every 12 (twelve) hours 180 tablet 0 aspirin 81 mg chewable tablet Take 1 tablet (81 mg total) by mouth daily 90 tablet 0 cholecalciferol (VITAMIN D-3) 2,000 unit tablet take 1 tablet by oral route every day 90 3 dapagliflozin (FARXIGA) 10 mg tablet Take 1 tablet (10 mg total) by mouth daily 90 tablet 0 fexofenadine (WALESKA) 180 mg tablet Take 1 tablet (180 mg total) by mouth daily as needed (allergies) fluticasone propionate (FLONASE) 50 mcg/actuation nasal spray Administer 1 spray into each nostril daily as needed for allergies furosemide (LASIX) 40 mg tablet Take 1 tablet (40 mg total) by mouth daily 90 tablet 0 metoprolol XL (TOPROL-XL) 25 mg extended release tablet Take 0.5 tablets (12.5 mg total) by mouth daily 45 tablet 0 rosuvastatin (CRESTOR) 10 mg tablet Take 1 tablet (10 mg total) by mouth nightly 90 tablet 0 spironolactone (ALDACTONE) 25 mg tablet Take 0.5 tablets (12.5 mg total) by mouth daily 45 tablet 0 Ventolin HFA 90 mcg/actuation inhaler cyanocobalamin (Vitamin B-12) 100 mcg tablet Take 10 tablets (1,000 mcg total) by mouth daily (Patient not taking: Reported on 08/29/2022) No current facility-administered medications on file prior to visit. Allergies: Reviewed in EMR OBJECTIVE: Vitals: 10/11/22 0927 BP: 107/71 BP Location: Right arm Patient Position: Sitting Pulse: 84 Weight: 64.9 kg (143 lb) Height: 154.9 cm (5' 1 ) General Examination: Constitutional: Well-developed/Well norished. HENT: Normocephalic/atraumatic. Neck/Back: Supple w/ full range of motion. Cardiovascular: Irregular rhythm. Respiratory: No stridor, no respiratory distress. Musculoskeletal: No edema or tenderness. Skin: Warm and dry. No rash noted. Psychiatric: Insight adequate, mood calm. Neurologic Examination: Mental status: A/OX3. Follows complex commands, able to cross midline. Language/speech: Mildly dysarthric. Comprehension intact. Cranial nerves: R HH. Amblyopia of the R eye (chronic). EOMI. V1-3 equal to light touch. R facial droop. Hearing equal bilaterally to finger rub. Symmetric palate rise . SCM/Trapezius 5/5 Tongue midline. Motor system: Muscle tone and appearance are normal. No contractures. RUE: Antigravity w/ drift and pronation. LUE: Antigravity w/o drift. RLE: Antigravity w/o drift. LLE: Antigravity w/o drift. Sensory: Grossly symmetric to all sensory modalities. Coordination: No tremor or abnormal movements and FTN intact on the L. Gait: Steady station, narrow base DIAGNOSTIC STUDIES: - Recent internal/external labs and TTE review personally in EMR and discussed with patient. RECENT IMAGING: - Relevant internal/external imaging review personally in EMR and discussed with patient. ASSESSMENT & PLAN: Patient is a 82 y.o. right-handed woman with multiple vascular risk factors including, HLD, CAD s/pPCI on ASA 81mg, Afib s/p failed ronny ablation on eliquis 5mg BID, CHFrEF (EF20%) and b/l carotid stenosis (L>R) who presents for a hospital follow-up after suffering a LM1 LVO treated with TNK and EVT (TICI2b) in July 2022. # L MCA territory ischemic stroke w/ residual dysarthria and R sided weakness. - Recommend labs (Lipid panel, HbA1c) to assess for vascular risk factors at 6 months post-stroke. - Recommend twice daily at home monitoring/recording. - Continue taking Crestor 10mg for cholesterol reduction with a LDL goal of < 70. - Continue taking ASA 81mg and Eliquis 5mg BID. - Recommend lifestyle modification with diet and exercise - Counseled on continued smoking cessation Patient to follow up in stroke clinic in 4-6 months. Future Appointments Date Time Provider Department Center 10/11/2022 10:00 AM Ade Villavicencio MD [facility] 10/14/2022 To Be Determined Lizbet Colbert PYRIDINE RECOVERY OPERATOR [facility] None 10/15/2022 To Be Determined Keisha Strauss COTA [facility] None 10/16/2022 To Be Determined Lizbet Colbert PYRIDINE RECOVERY OPERATOR [facility] None 10/17/2022 To Be Determined Litzy Zaragoza TECHNICAL SOLUTION ARCHITECT [facility] None 10/17/2022 To Be Determined Keisha Strauss COTA [facility] None 10/21/2022 To Be Determined Lizbet Colbert PYRIDINE RECOVERY OPERATOR [facility] None 10/23/2022 To Be Determined Watson Sanchez PT [facility] None 10/24/2022 To Be Determined Litzy Zaragoza TECHNICAL SOLUTION ARCHITECT [facility] None 01/23/2023 2:15 PM Mannie Hernandez MD MG CAR MRYVL Specialty 10/22/2023 10:30 AM [facility] DEVICE CHECK HCG MV PROC Specialty Ade Villavicencio MD Vascular Neurology I have spent 60 minutes face to face with this patient with greater than 50% of this time spent in discussion of the diagnosis of Acute ischemic stroke and the importance of compliance with the treatment plan. documented in this encounter Plan of Treatment Not on file documented as of this encounter Visit Diagnoses Diagnosis Chronic ischemic left MCA stroke- Primary Transient ischemic attack (TIA), and cerebral infarction without residual deficits Cerebrovascular accident (CVA), unspecified mechanism (HCC) History of hyperlipidemia, mixed Right sided weakness documented in this encounter Orders Outpatient Referral Count Last Ordered Date Fir st Ordered Date AMB REFERRAL TO NEUROLOGY 1 10/11/2022 documented in this encounter Care Teams Escrow Manager Relationship Specialty Start Date End Date Jaleel Mcgovern MD PCP - General Family Practice 07/18/22 Reynaldo Flannery DO Consulting Physician Cardiology 09/26/17 Guanakito Holland MD Consulting Physician Cardiovascular Disease 07/29/18 documented as of this encounter
--- OUTSIDE RECORDS SUMMARY | 2024-04-11 06:35 | XMS_ITS | Encounter Summary ---
Author Organization [facility] Home Care [facility] Address [address] [place] [address] Phone Care Team Providers Care Shredded Filler Cutter Operator Name Role Phone Reynaldo Flannery DO Unavailable [phone] Guanakito Holland MD Unavailable [phone] Jaleel Mcgovern MD Primary Care Provider [phone] Reason for Visit * Auth/Cert (Routine) Specialty Diagnoses / Procedures Referred By Contac t Referred To Contact Referral ID Status Reason Start Date Expiration Date Visits Re quested Visits Authorized [id number] 1 1 Encounter Details Date Type Department Care Team (Late st Contact Info) Description 10/10/2022 Home Care Visit [facility] Home Health [facility] [address] [place] [address] Mroena Holder, OT OT SUPERVISORY VISIT Social History Tobacco Use Types Packs/Day [...] 08/23/2022 [facility] - Occupational Stress Questionnaire Answer [...] on file Legal Sex Female 11:18 AM 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 Gender Identity Female 10/09/2022 9:08 AM CDT Sexual Orientation Choose not to disclose 2022 9:08 AM CDT documented as of this encounter Plan of Treatment Not on file documented as of this encounter Visit Diagnoses Not on filedocumented in this encounter Home Health Visit - Care Plan Visit Details Visit Type -OT Supervisory V isit Discipline -Occupational Therapy Problems Problem Description Start Date Status Goals Interve ntions Homebound Status Disciplines: Skilled Disciplines Patient's homebound status 08/28/2022 Active 1 goal linked to scheduled/documen vickie intervention 1 goal intervention scheduled/documen vickie in this visit Monitor patient's vital signs every home health visit Disciplines: SN, PT, OT, ETL INFORMATICA ARCHITECT, BARREL RIB MATTING MACHINE OPERATOR, Skilled Disciplines Monitor patient's vital [...] goal intervention scheduled/documen vickie in this visit Goals Goal Associated Problem Outcome Goal Met? Visit Notes Patient receives care at the most appropriate care setting Description: Patient receives care at the most appropriate care setting. Homebound Status No Measure vital signs during every home health visit during episode of care Description: Home director of professional services to measure vital signs during every home [...] care at the most appropriate care setting Scheduled Monitor Vital Signs Description: Monitor blood pressure, pulse, oxygen saturation, respirations Problem:Monitor patient's vital signs every home health visit Goal:Measure vital signs during every home health visit during episode of care Scheduled Instruct Fall Prevention Description: Instruct patient/caregiver in methods to prevent falls Problem:Safety concerns Goal:Demonstrate use of safety precautions Scheduled Assess safety Description: Assess patient safety Problem:Safety concerns Goal:Demonstrate use of safety precautions Scheduled Instruct on pain management techniques Description: Instruct in pharmacologic and nonpharmacologic pain management techniques. Problem:Pain Goal:Report that pain has been reduced or controlled Scheduled documented in this encounter Care Teams Shredded Filler Cutter Operator Relationship Specialty Start Date End Date Jaleel Mcgovern MD PCP - General Family Practice 07/18/22 Reynaldo Flannery DO Consulting Physician Cardiology 09/26/17 Guanakito Holland MD Consulting Physician Cardiovascular Disease 07/29/18 documented as of this encounter
--- OUTSIDE RECORDS SUMMARY | 2024-04-11 06:35 | XMS_ITS | Encounter Summary ---
Author Organization [facility] Home Care Servic es Address [address] [place] [address] Phone Care Team Providers Care Engineering Faculty Member Name Role Phone Reynaldo Flannery DO Unavailable [phone] Guanakito Holland MD Unavailable [phone] Jaleel Mcgovern MD Primary Care Provider [phone] Reason for Visit * Auth/Cert (Routine) Specialty Diagnoses / Procedures Referred By Contac t Referred To Contact Referral ID Status Reason Start Date Expiration Date Visits Re quested Visits Authorized [id number] 1 1 Encounter Details Date Type Department Care Team (Late st Contact Info) Description 10/07/2022 Home Care Visit [facility] Home Health [facility] [address] [place] [address] Watson Sanchez PT TELEPHONE ENCOUNTER Social History Tobacco Use Types [...] Recorded Patient Health Questionnaire-2 Score 0 08/23/2022 [facility] Occupat ional Health - Occupational [...] on file Legal Sex Female 11:18 AM ETL DATABASE DEVELOPER Gender Identity Female 10/09/2022 9:08 AM CDT Sexual Orientation Choose not to disclose 2022 9:08 AM CDT documented as of this encounter Plan of Treatment Not on file documented as of this encounter Visit Diagnoses Not on filedocumented in this encounter Care Teams Engineering Faculty Member Relationship Specialty Start Date End Date Jaleel Mcgovern MD PCP - General Family Practice 07/18/22 Reynaldo Flannery DO Consulting Physician Cardiology 09/26/17 Guanaikto Holland MD Consulting Physician Cardiovascular Disease 07/29/18 documented as of this encounter
--- OUTSIDE RECORDS SUMMARY | 2024-04-11 06:35 | XMS_ITS | Encounter Summary ---
Author Organization [facility] Home Care Serv[facility] es Address [address] [place] [address] Phone Care Team Providers Care Body Art Technician Name Role Phone Reynaldo Flannery DO Unavailable [phone] Guanakito Holland MD Unavailable Jaleel Mcgovern MD Primary Care Provider [phone] Reason for Visit * Auth/Cert (Routine) Specialty Diagnoses / Procedures Referred By Contac t Referred To Contact Referral ID Status Reason Start Date Expiration Date Visits Re quested Visits Authorized [id number] 1 1 Encounter Details Date Type Department Care Team (Late st Contact Info) Description 10/07/2022 12:30 PM CDT Home Care Visit [facility] Home Health [address] [address] [address] [place] [address] Watson Sanchez, PT PT REASSESSMENT Social History Tobacco Use Types Packs/Day [...] or relatives? 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 Gender Identity Female 10/09/2022 9:08 AM CDT Sexual Orientation Choose not to disclose 2022 9:08 AM CDT documented as of this encounter Last Filed Vital Signs Vital Sign Reading Time Taken Comments Blood Pressure 101/63 10/07/2022 12:37 PM CDT Pulse 92 10/07/2022 12:37 PM CDT Temperature 36.3 ??C (97.4 ??F) 10/07/2022 12:37 PM C DT Respiratory Rate 18 10/07/2022 12:37 PM CDT Oxygen Saturation 97% 10/07/2022 12:37 PM CDT Inhaled Oxygen Concentration - - Weight - - Height - - Body Mass Index - - documented in this encounter Miscellaneous Notes * Home Health Visit Narrative - Watson Sanchez, PT - 10/07/2022 12:34 PM CDT Patient present for homecare reassessment. Meeting and / or progressing very well toward goals. Plan to continue therapy for focus of care higher level balance activities, along with continued gait training, LE strengthening, transfers, fall prevention. Plan to continue PT 2x weekly for 2 weeks. * Home Health Plan for Next Visit - Watson Sanchez, PT - 10/07/2022 12:34 PM CDT Reason for today's visit: homecare PT reassessment Discussed plan of care interventions with the patient, who remains agreeable. Discharge planning: ongoing Plan for next visit: continue to progress interventions, with focus on more challenging balance activities. documented in this encounter Plan of Treatment Not on file documented as of this encounter Visit Diagnoses Not on filedocumented in this encounter Home Health Visit - Care Plan Visit Details Visit Type -PT Reassessment Discipline -Physical Therapy Problems Problem Description Start Date Status Goals Interventions Homebound Status Disciplines: Skilled Disciplines Patient's homebound status 08/28/2022 Active 1 goal linked to scheduled/docume nted intervention 1 goal intervention scheduled/documen vickie in this visit Monitor patient's vital signs every home health visit Disciplines: SN, PT, OT, CEMENT BREAKER, ANALYSIS OR RESEARCH SAFETY INSPECTOR, Skilled Disciplines Monitor patient's vital signs every home health visit. 08/28/2022 Active 1 goal linked to scheduled/docume nted intervention 1 goal intervention scheduled/documen vickie in this visit Infection Prevention Disciplines: Skilled Disciplines Infection Prevention 08/28/2022 Active 1 goal linked to scheduled/docume nted intervention 2 goal interventions scheduled/documen vickie in this visit Safety concerns [...] Therapy Impaired functional mobility/balance 08/28/2022 Active - 1 problem intervention scheduled/documen vickie in this visit Goals Goal Associated Problem Outcome Goal Met? Visit Notes Patient receives care at the most appropriate care setting Description: Patient receives care at the most appropriate care setting. Homebound Status No Measure vital signs during every home health visit during episode of care Description: Home it project lead to measure vital signs during every home health visit during episode of care. Monitor patient's vital signs every home health visit No Verbalize signs of infection Description: Patient/caregiver will demonstrate knowledge of infection prevention strategies by verbalizing signs and symptoms of infection. Infection Prevention No Demonstrate use of safety precautions Description: [...] health visit during episode of care Completed Educate Patient on Infection Prevention Description: Instruct patient on signs and symptoms of infection IE: fever, odor, change in color, increased amount of drainage, purulent drainage, warmth. Problem:Infection Prevention Goal:Verbalize signs of infection Completed Instructed patient on signs and symptoms of infection including fever, odor, change in color, increased amount of drainage, purulent drainage, warmth. patient verbalizes good understanding of instructions and provides safe verbalization/return demonstration of instructions. Educate Family on Infection Prevention Description: Instructed family on signs and symptoms of infection IE: fever, odor, change in color, increased amount of drainage, purulent drainage, warmth. Problem:Infection Prevention Goal:Verbalize signs of infection Completed Instructed family on signs and symptoms of infection including fever, odor, change in color, increased amount of drainage, purulent drainage, warmth. patient's family verbalizes good understanding of instructions and provides safe verbalization/return demonstration of instructions. Instruct Fall Prevention Description: Instruct patient/caregiver in [...] use of safety precautions Completed Instruct on the prevention of deep vein thrombosis Description: Instruct patient/caregiver on signs and symptoms, preventative measures related to DVT, and provide ongoing home support based on patient needs Problem:DVT Prevention and Management Goal:Demonstrate knowledge of anticoagulant therapy Completed Instruct on pain management techniques Description: [...] HEP X 10-20 reps BID as tolerated. handouts have been issued for reference previously. patient verbalizes good understanding of instructions and provides safe verbalization/return demonstration of instructions documented in this encounter Care Teams Body Art Technician Relationship Specialty Start Date End Date Jaleel Mcgovern MD PCP - General Family Practice 07/18/22 Reynaldo Flannery DO Consulting Physician Cardiology 09/26/17 Guanakito Holland MD Consulting Physician Cardiovascular Disease 07/29/18 documented as of this encounter
--- OUTSIDE RECORDS SUMMARY | 2024-04-11 06:35 | XMS_ITS | Encounter Summary ---
Author Organization [facility] Healthcare Address [address] [place] [address] Care Team Providers Care Striper Name Role Phone Reynaldo Flannery DO Unavailable [phone] Guanakito Holland MD Unavailable [phone] Jaleel Mcgovern MD Primary Care Provider [phone] Reason for Visit * Cardiology (Routine) - Closed Specialty Diagnoses / Procedures Referred By Contac t Referred To Contact Diagnoses Paroxysmal atrial fibrillation (CMS/HCC) (HCC) Sick sinus syndrome (CMS/HCC) (HCC) Cardiac pacemaker in situ Procedures DEVICE CHECK - REMOTE Mannie Hernandez MD [address] [address] Phone: tel: fax: [facility] Referral ID Status Reason Start Date Expiration Date Visits Re quested Visits Authorized [id number] Closed 09/19/2021 04/24/2023 1 1 Encounter Details Date Type Department Care Team (Latest Contact Info) Description 04/15/2023 7:15 AM BSA OFFICER Ancillary Procedure [facility] Cardiology [address] [place] [address] [place] [id number] Paroxysmal atrial fibrillation (CMS/HCC) (HCC); Sick sinus [...] Recorded Patient Health Questionnaire-2 Score 0 08/23/2022 [facility] [place] of Occupat ional Health - Occupational Stress [...] on file Legal Sex Female 11:18 AM BSA OFFICER Gender Identity Female 10/09/2022 9:08 AM CDT Sexual Orientation Choose not to disclose 2022 9:08 AM CDT documented as of this encounter Plan of Treatment Not on file documented as of this encounter Procedures Procedure Name Priority Date/Time Associated Diagnosis Comments DEVICE CHECK - REMOTE Routine 04/15/2023 2:29 PM BSA OFFICER Paroxysmal atrial fibrillation (CMS/HCC) (HCC) Sick sinus syndrome (CMS/HCC) (HCC) Cardiac pacemaker in situ documented in this encounter Results * DEVICE CHECK - REMOTE (04/15/2023 2:29 PM BSA OFFICER) Anatomical Region Laterality Modality Other Narrative 06/10/2023 1:32 PM CDT Biotronik Dual Pacemaker. Dx; SSS, Afib. DOI 07/29/2018-Dr Holland. RA Lead replaced 09/14/18. AV Node Ablation 12/2018. Biotronik remote monitoring. Routine VVI Pacemaker Remote. Transmission attached. Battery status-Ok, 55% remaining to LEANA. Stable lead impedances, pacing and sensing thresholds. Presenting rhythm: Vpaced. BUSINESS FUNCTIONAL ANALYST-92 %. No Ventricular arrhythmias detected. ?? Medication: Eliquis, Toprol XL. Follow up: Biotronik remote 07/22/2023. Merry Cavanaugh RN Mannie Hernandez MD [facility] PROC EDURES Final Result documented in this encounter Visit Diagnoses Diagnosis Paroxysmal atrial fibrillation (CMS/HCC) (HCC) Atrial fibrillation Sick sinus syndrome (CMS/HCC) (HCC) Sinoatrial node dysfunction Cardiac pacemaker in situ documented in this encounter Care Teams Striper Relationship Specialty Start Date End Date Jaleel Mcgovern MD PCP - General Family Practice 07/18/22 Reynaldo Flannery DO Consulting Physician Cardiology 09/26/17 Guanakito Holland MD Consulting Physician Cardiovascular Disease 07/29/18 documented as of this encounter
--- OUTSIDE RECORDS SUMMARY | 2024-04-11 06:35 | XMS_ITS | Encounter Summary ---
Author Organization [facility] Home Care Servic es Address [address] [place] [address] Phone Care Team Providers Care Blender Helper Name Role Phone Alma Delia Reynaldo Rees DO Unavailable [phone] Guanakito Holland MD Unavailable [phone] Jaleel Mcgovern MD Primary Care Provider [phone] Reason for Visit * Reason Comments Weakness - Generalized * Auth/Cert (Routine) Specialty Diagnoses / Procedures Referred By Contac t Referred To Contact Referral ID Status Reason Start Date Expiration Date Visits Re quested Visits Authorized [id number] 1 1 Encounter Details Date Type Department Care Team (Late st Contact Info) Description 10/15/2022 12:30 PM CDT Home Care Visit [facility] Home Health [address] [address] [address] [place] [address] Lizbet Colbert PTA PT HOME VISIT Social [...] or relatives? Once a week 08/12/2022 Attends [employer] Not on file 08/12 Active Member [...] Recorded Patient Health Questionnaire-2 Score 0 08/23/2022 [facility] Occupat ional Health - Occupational Stress [...] on file Legal Sex Female 11:18 AM STEM CRUSHER Gender Identity Female 10/09/2022 9:08 AM CDT Sexual Orientation Choose not to disclose 2022 9:08 AM CDT documented as of this encounter Last Filed Vital Signs Vital Sign Reading Time Taken Comments Blood Pressure 100/62 10/15/2022 12:44 PM CDT Pulse 85 10/15/2022 12:44 PM CDT Temperature 36.7 ??C (98 ??F) 10/15/2022 12:44 PM CDT Respiratory Rate 18 10/15/2022 12:44 PM CDT Oxygen Saturation 99% 10/15/2022 12:44 PM CDT Inhaled Oxygen Concentration - - Weight - - Height - - Body Mass Index - - documented in this encounter Miscellaneous Notes * Home Health Plan for Next Visit - Lizbet Colbert PTA - 10/15/2022 12:37 PM CDT Reason for today's visit strength, balance, transfers, gait and safety training. Discuss plan of care with pt and daughter who remains agreeable. Updated PT Discharge planning initiated and discussed in detail with patient on how to continue with HEP and gait programs upon discharge from Home Care Physical Therapy services. Patient voiced understanding of dc planning. Plan for next visit to cont to progress HEP, strength, balance, gait and transfers to facilitate improved functional ability and mobility and to decrease fall risk . documented in this encounter Plan of Treatment [...] home health visit Disciplines: SN, PT, OT, MOBILE DEVELOPMENT MANAGER, LABOR TRAINER, Skilled Disciplines Monitor patient's vital signs every [...] visit during episode of care Description: Home flight crew ordnanceman to measure vital signs during every home [...] health visit during episode of care Completed Patient and/or caregiver on methods to prevent falls including: removal of throw rugs from the jacquelyn, maintaining pathway clear of tripping hazards and pets, using nightlights, keeping walking areas well lit, use of assistive device for safety, supervision for mobility including enter/exit the home and with stair mobility. Pt verbalized good understanding of instuctions and provides safe verbalization/return demonstration of the instructions. Instruct Fall Prevention Description: Instruct patient/caregiver [...] or controlled Completed pt with no c/o pain. Transfer training Description: Instruct patient/caregiver and perform transfer training. Problem:PT Impaired Functional Mobility/Balance Completed Pt. instructed on sit to stand transfers from couch without use of bilateral UE assist. Pt. demoed fair technique and understanding to complete transfers safely. provided cues for decreased tj and to increase anterior push with fair ability to follow through noted. Gait/Stair Training Description: Instruct patient/caregiver and perform gait/stair training. Problem:PT Impaired Functional Mobility/Balance Completed Pt. instructed on gait training outright completed t/o home with emphasis on quality of steps vs kimberly and distance. Pt completed gait training with increased tj, decreased step height bilaterally, slight decreased step length left secondary to decreased stance time right le. Provided pt with verbal cues to improve technique with pt demonstrating fair understanding of the instruction/cues provided. Balance Training/Activities Description: Instruct patient/caregiver and perform balance training activities. Problem:PT Impaired Functional Mobility/Balance Completed Patient educated on balance challenges standing with support while performing static stance with decresaed tj eyes open and eyes closed, staggered stance eyes open all 30 sec holds x 1 bouts each with cga. With bilateral UE support completed single leg stance with min to cga to maintain. Completed stand performing coordination and reaching challenges while holding a baloon with both hands. pt completed with sba with cues for posture as pt noted to be flexed at hips. Pt noted to have improved hip stability with right stance. Provided verbal cues for posture and core contraction, pt vocalized understanding of the cues and instruction provided. Therapeutic Exercise Description: Perform therapeutic exercise, progressing as tolerated. Problem:PT Impaired Functional Mobility/Balance Completed Pt. instructed in seated therex 10 reps x 1 set with blue theraband for bilateral hip flex, abd, knee ext, and ankle df/pf. Pt. demonstrated understanding of the exercises and instruction provided. pt tolerated the progression of the TB to blue well without compliants and overall noted improved control of the right le. documented in this encounter Care Teams Blender Helper Relationship Specialty Start Date End Date Jaleel Mcgovern MD PCP - General Family Practice 07/18/22 Reynaldo Flannery DO Consulting Physician Cardiology 09/26/17 Guanakito Holland MD Consulting Physician Cardiovascular Disease 07/29/18 documented as of this encounter
--- OUTSIDE RECORDS SUMMARY | 2024-04-11 06:35 | XMS_ITS | Encounter Summary ---
Author Organization [facility] Home Care Servic es Address [address] [place] [address] Phone Care Team Providers Care Elastic Tape Inserter Name Role Phone Reynaldo Flannery DO Unavailable [phone] Guanakito Holland MD Unavailable [phone] Jaleel Mcgovern MD Primary Care Provider [phone] Reason for Visit * Auth/Cert (Routine) Specialty Diagnoses / Procedures Referred By Contac t Referred To Contact Referral ID Status Reason Start Date Expiration Date Visits Re quested Visits Authorized [id number] 1 1 Encounter Details Date Type Department Care Team (Latest Contact Info) Description 10/22/2022 11:00 AM CDT Home Care Visit [facility] Home Health [address] [address] [address] [place] [address] Morena Holder, OT OT DISCIPLINE DISCHARGE Social History Tobacco Use Types [...] or relatives? Once a week 08/12/2022 Attends [employer] Services Not on file 08/12 Active Member [...] Recorded Patient Health Questionnaire-2 Score 0 08/23/2022 [facility] - Occupational [...] on file Legal Sex Female 11:18 AM FABRICATION WELDER Gender Identity Female 10/09/2022 9:08 AM CDT Sexual Orientation Choose not to disclose 2022 9:08 AM CDT documented as of this encounter Last Filed Vital Signs Vital Sign Reading Time Taken Comments Blood Pressure 118/64 10/22/2022 10:54 AM CDT Pulse 73 10/22/2022 10:54 AM CDT Temperature 36.3 ??C (97.3 ??F) 10/22/2022 10:54 AM C DT Respiratory Rate 18 10/22/2022 10:54 AM CDT Oxygen Saturation 95% 10/22/2022 10:54 AM CDT Inhaled Oxygen Concentration - - Weight - - Height - - Body Mass Index - - documented in this encounter Miscellaneous Notes * Home Health Visit Narrative - Morena Holder, OT - 10/22/2022 10:47 AM CDT Pt. 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 She was admitted to [facility] from 08/12/2022 - 08/23/2022 (11 days). Pt. lives in a 1 story house and her daughters are rotating to stay the night with her. Pt. has a supportive family who assist in her care. PMH: Aortic aneurysm, PACEMAKER, Arthritis, Atrial fibrillation; outcome: heart ablation, CHF, Depression, Diverticulosis, Dysphagia, GERD, Depression, with Anxiety, DJD, HLD, HTN, DC 2015, sleep apnea, vertigo PLOF: Pt. indep for ADL's and most IADL's. Pt. did not ambulate with a device. Pt. indep for transfers. Pt.'s goals are to get back to where she was. Pt. was seen for HHOT reassessment and HHOT d/c. Pt.'s goals have been adequately meet. Pt. in agreement with POC and HHOT d/c * Home Health Plan for Next Visit - Morena Holder OT - 10/22/2022 10:47 AM CDT Reason for today's visit HHOT d/c Discuss plan of care with pt. and daughter Discharge planning for this visit as OT goals adequately met. Pt and cgs agree to OT discharge and continue with PT documented in this encounter Plan of Treatment Not on file documented as of this encounter Visit Diagnoses Not on filedocumented in this encounter Home Health Visit - Care Plan Visit Details Visit Type -OT Discipline Valencia chow Discipline -Occupational Therapy Problems Problem Description Start Date Status Goals Interve ntions Homebound Status Disciplines: Skilled Disciplines Patient's homebound status 08/28/2022 Active 1 goal linked to scheduled/docume nted intervention 1 goal intervention scheduled/documen vickie in this visit Monitor patient's vital signs every home health visit Disciplines: SN, PT, OT, HAND POTTER, CUTTER HEAD SHARPENER, Skilled Disciplines Monitor patient's vital signs every [...] activities 08/30/2022 Active 1 goal linked to scheduled/docume nted intervention OT Impaired ADLs Disciplines: Occupational Therapy Impaired independence in self-care, ADLs. 08/30/2022 Active 1 goal linked to scheduled/docume nted intervention 1 problem intervention scheduled/documen vickie in this visit OT Impaired ADLs Disciplines: Occupational Therapy Impaired independence in self-care, ADLs. 08/30/2022 Active 1 goal linked to scheduled/docume nted intervention Goals Goal Associated Problem Outcome Goal Met? Visit Notes Patient receives care at the most appropriate care setting Description: Patient receives care at the most appropriate care setting. Homebound Status No Measure vital signs during every home health visit during episode of care Description: Home mill hand plate mill to measure vital signs during every home health visit during episode of care. Monitor patient's vital signs every home health visit No Demonstrate use of safety precautions Description: Patient/caregiver maintains safe home environment as evidenced by remaining free from injury and demonstrates use of safety precautions. Safety concerns No Report that pain has been reduced or controlled Description: Patient/caregiver/famil y will verbalize satisfaction with the patients level of pain and symptom control. Pain No Improvement in IADL performance Description: Patient to perform light to mod house management/homemaking including doing dishes activities indep by 10/26/22 OT Impaired IADLs Completed Yes Patient to perform light to mod house management/homemakin g including doing dishes activities indep by 10/26/22. Pt. is indep for light to mod IADL's including dishes Improvement in ADL performance Description: Patient will complete dressing tasks with adaptive equipment requiring indep by 10/26/22 OT Impaired ADLs Completed Yes Patient will complete dressing tasks with adaptive equipment requiring indep by 10/26/22. Pt. indep for dressing Obtaining and use of adaptive equipment/DME Description: Patient educated and/or to obtaining adaptive equipment/DME for completing ADL's and IADL's by 10/26/22 OT Impaired ADLs Completed Yes Patient educated and/or to obtaining adaptive equipment/DME for completing ADL's and IADL's by 10/26/22. completed Interventions Intervention Associated Problem/Goal Status Variance Visit [...] Activity Tolerance/Energy Conservation Completed Educated pt. on the importance to continuing to listening to your body and not doing to much at one time. Pt. demonstrated good understanding of information. Home Exercise Program (HEP) Description: Instruct patient/caregiver and perform HEP. Problem:OT Impaired UE Function and/or Fine Motor Skills Completed Educated pt. on how to progress her HEP and when to start doing more reps. Pt. demonstrated good understanding of information ADL Instruction Description: Instruct patient/caregiver for improved ADL performance. Problem:OT Impaired ADLs Completed Educated pt. on techniques for using new bra that has not came in yet. Pt. demonstrated good understanding of information documented in this encounter Care Teams Elastic Tape Inserter Relationship Specialty Start Date End Date Jaleel Mcgovern MD PCP - General Family Practice 07/18/22 Reynaldo Flannery DO Consulting Physician Cardiology 09/26/17 Guanakito Holland MD Consulting Physician Cardiovascular Disease 07/29/18 documented as of this encounter
--- OUTSIDE RECORDS SUMMARY | 2024-04-11 06:35 | XMS_ITS | Encounter Summary ---
Author Organization [facility] Home Care Servic es Address [address] [place] [address] Phone Care Team Providers Care Turbine Engine Assembler Name Role Phone Reynaldo Flannery DO Unavailable [phone] Guanakito Holland MD Unavailable [phone] Jaleel Mcgovern MD Primary Care Provider [phone] Reason for Visit * Reason Comments Extremity Weakness * Auth/Cert (Routine) Specialty Diagnoses / Procedures Referred By Contac t Referred To Contact Referral ID Status Reason Start Date Expiration Date Visits Re quested Visits Authorized [id number] 1 1 Encounter Details Date Type Department Care Team (Late st Contact Info) Description 10/08/2022 9:30 AM CDT Home Care Visit [facility] Home Health [address] [address] [address] [place] [address] Keisha Strauss COTA OT HOME VISIT Social [...] or relatives? Once a week 08/12/2022 Attends [employer] Services Not on file 08/12 Active Member [...] Recorded Patient Health Questionnaire-2 Score 0 08/23/2022 [facility] - Occupational [...] on file Legal Sex Female 11:18 AM INTERNET MARKETING ANALYST Gender Identity Female 10/09/2022 9:08 AM CDT Sexual Orientation Choose not to disclose 2022 9:08 AM CDT documented as of this encounter Last Filed Vital Signs Vital Sign Reading Time Taken Comments Blood Pressure 108/60 10/08/2022 9:45 AM CDT Pulse 85 10/08/2022 9:45 AM CDT Temperature 36.4 ??C (97.5 ??F) 10/08/2022 9:45 AM CD T Respiratory Rate 18 10/08/2022 9:45 AM CDT Oxygen Saturation 98% 10/08/2022 9:45 AM CDT Inhaled Oxygen Concentration - - Weight - - Height - - Body Mass Index - - documented in this encounter Miscellaneous Notes * Home Health Plan for Next Visit - Keisha Strauss COTA - 10/08/2022 10:47 AM CDT Reason for today's visit: instruction in standing balance, EC, R hand beater and pulper feeder exercise, and grooming/hair care using RUE to support return of ADL function. Discuss plan of care with pt and dtr. Discharge planning to OP. Pt prefers [facility] in [place] Plan for next visit: with OTR Morena Holder for reassessment. Pt and dtr voiced agreement with POT.Email update sent to OTR. documented in this encounter Plan of Treatment [...] home health visit Disciplines: SN, PT, OT, LOOM CHANGER, PIPE FINISHING SUPERVISOR, Skilled Disciplines Monitor patient's vital signs every [...] visit during episode of care Description: Home manager of sustainability to measure vital signs during every home [...] from clutter/obstacles, removal of throw rugs, and use of balance principles, body alignment, keeping head in neutral to reduce fall risk. Pt/caregiver verbalized understanding with good return demo during balance training and functional mobility to/from bathroom. Assess safety Description: Assess patient safety Problem:Safety [...] activity tolerance; best time of day, work simplification/breaki ng task into smaller steps, sitting to complete tasks rest breaks, pacing, and breathing tech to improve ability to engage in daily occupations. Provided pt with cisse words to improve recall and use of EC methods. Pt verbalized understanding. Home Exercise Program (HEP) Description: Instruct patient/caregiver and perform HEP. Problem:OT Impaired UE Function and/or Fine Motor Skills Completed Pt voiced disappointment with R hand beater and pulper feeder and stated, I can't really work in the kitchen because of I can't beater and pulper feeder very well with my right hand. Ed pt in use of yellow Theraband flexbar for beater and pulper feeder strengthening. Pt voiced understanding with F/F+ return demo secondary to post stroke extremity weakness. Transfer Training Description: Instruct patient/caregiver and perform transfer training. Problem:OT Impaired Functional Mobility/Balance Completed Pt displayed independent sofa and toilet transfers this date. Balance Activities Description: Balance Activities. Problem:OT Impaired Functional Mobility/Balance Completed Pt ed in body alignment, placement of feet, facing objects/work surface, proximity to work surface, avoiding over-reaching to improve balance and for fall prevention during standing ADLs. Pt verbalized understanding of strategy and stood for two trials with and without UE support with F+/G- balance, SBA with gait belt for weight shifting task and grooming/hair care task. Pt stood 5 minutes and 7 minutes, no LOB noted. ADL Instruction Description: Instruct patient/caregiver for improved ADL performance. Problem:OT Impaired ADLs Completed Pt completed toileting and hand hygiene, Independently. documented in this encounter Care Teams Turbine Engine Assembler Relationship Specialty Start Date End Date Jaleel Mcgovern MD PCP - General Family Practice 07/18/22 Reynaldo Flannery DO Consulting Physician Cardiology 09/26/17 Guanakito Holland MD Consulting Physician Cardiovascular Disease 07/29/18 documented as of this encounter
--- OUTSIDE RECORDS SUMMARY | 2024-04-11 06:35 | XMS_ITS | Encounter Summary ---
Author Organization [facility] Home Care Servic es Address [address] [place] [address] Phone Care Team Providers Care Historian Dramatic Arts Name Role Phone Reynaldo Flannery DO Unavailable [phone] Guanakito Holland MD Unavailable [phone] Jaleel Mcgovern MD Primary Care Provider [phone] Reason for Visit * Reason Comments Toe Pain * Auth/Cert (Routine) Specialty Diagnoses / Procedures Referred By Contac t Referred To Contact Referral ID Status Reason Start Date Expiration Date Visits Re quested Visits Authorized [id number] 1 1 Encounter Details Date Type Department Care Team (Late st Contact Info) Description 10/01/2022 9:00 AM CDT Home Care Visit [facility] Home Health [address] [address] [address] [place] [address] Keisha Strauss COTA OT HOME VISIT Social [...] Recorded Patient Health Questionnaire-2 Score 0 08/23/2022 [facility] - Occupational Stress [...] on file 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 Gender Identity Female 10/09/2022 9:08 AM CDT Sexual Orientation Choose not to disclose 2022 9:08 AM CDT documented as of this encounter Last Filed Vital Signs Vital Sign Reading Time Taken Comments Blood Pressure 102/50 10/01/2022 10:00 AM CDT Pulse 66 10/01/2022 10:00 AM CDT Temperature 36.9 ??C (98.5 ??F) 10/01/2022 10:00 AM C DT Respiratory Rate 18 10/01/2022 10:00 AM CDT Oxygen Saturation 95% 10/01/2022 10:00 AM CDT Inhaled Oxygen Concentration - - Weight - - Height - - Body Mass Index - - documented in this encounter Miscellaneous Notes * Home Health Plan for Next Visit - Keisha Strauss COTA - 10/01/2022 11:06 AM CDT Reason for today's visit: to instruct in EC with UE dressing to support ADL function. Discuss plan of care with pt and dtr. Discharge planning: can benefit from OP therapy when goals have been met. Plan for next visit: to address standing ADL and UE HEP. Pt and dtr in agreement with [facility]. documented in this [...] home health visit Disciplines: SN, PT, OT, OPTOMECHANICAL ENGINEER, STOCK SELECTOR, Skilled Disciplines Monitor patient's vital signs every [...] visit during episode of care Description: Home solutions engineer to measure vital signs during every [...] free from clutter/obstacles, removal of throw rugs, use of balance principles, body alignment, keeping head in neutral, and pacing to reduce fall risk. Pt/caregiver verbalized understanding. Assess safety Description: Assess patient safety Problem:Safety concerns Goal:Demonstrate use of safety precautions Scheduled Instruct on pain management techniques Description: Instruct in pharmacologic and nonpharmacologic pain management techniques. Problem:Pain Goal:Report that pain has been reduced or controlled Completed Pt reports pain reduced by soaking with epson salt. Energy Conservation Education Description: Instruct patient/caregiver in techniques for improved activity tolerance Problem:OT Activity Tolerance/Energy Conservation Completed Pt presents with fatigue secondary to dx of Hemiplegia and hemiparesis following cerebral infarction affecting right dominant side. Ed patient in energy conservation (EC) techniques for improved activity tolerance; best time of day, work simplification/break ing task into smaller steps, sitting to complete tasks rest breaks, pacing, and breathing tech to improve ability to engage in daily occupations. Ed pt in use of EC as strategy for dressing. Pt verbalized understanding. ADL Instruction Description: Instruct patient/caregiver for improved ADL performance. Problem:OT Impaired ADLs Completed Ed pt in use of EC: work simplification, sitting, and rest breaks as strategies to don bra secondary to dx of R hemiparesis. Pt verbalized understanding. Pt completed two trials to don/doff two different bra (zipper front and standard hook styles) to determine which style is easiest. Pt required cues to take rest breaks secondary to RUE hemiparesis. Pt completed with SBA and extra time. Pt reports difficulty with both bra styles but experienced least amount of difficulty with standard hook bra, hooking first, and then donning overhead (like a t-shirt). Pt completed toileting and hand hygiene, Julia using toilet riser with rails. documented in this encounter Care Teams Historian Dramatic Arts Relationship Specialty Start Date End Date Jaleel Mcgovern MD PCP - General Family Practice 07/18/22 Reynaldo Flannery DO Consulting Physician Cardiology 09/26/17 Guanakito Holland MD Consulting Physician Cardiovascular Disease 07/29/18 documented as of this encounter
--- OUTSIDE RECORDS SUMMARY | 2024-04-11 06:35 | XMS_ITS | Encounter Summary ---
Author Organization [facility] Address [address] [place] [address] Care Team Providers Care Cardroom Drawing Runner Name Role Phone Reynaldo Flannery DO Unavailable [phone] Guanakito Holland MD Unavailable Jaleel Mcgovern MD Primary Care Provider [phone] Reason for Visit * Reason Comments Follow-up Increasing SOB Atrial Fibrillation Encounter Details Date Type Department Care Team (Late st Contact Info) Description 11/06/2022 10:15 AM CDT Office Visit [facility] Cardiology at [address] [place] [address] Mannie Hernandez MD [address] [facility] [address] [place] [address] History of coronary artery stent placement (Primary Dx); Coronary artery disease involving [place] coronary artery of [place] heart without angina pectoris; Paroxysmal atrial fibrillation (CMS/HCC) (HCC); Cardiac pacemaker in situ; HFrEF (heart failure [...] or relatives? Once a week 08/12/2022 Attends [employer] Not on file 08/12 Active Member [...] Recorded Patient Health Questionnaire-2 Score 0 08/23/2022 [facility] Occupat ional Health - Occupational Stress [...] place to sleep or slept in a group home (including now)? No 08/12/2022 Personal Safety Answer Date Recorded Have you ever been in or are you currently in a harmful physical or emotional relationship or is someone making you feel afraid or unsafe? 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 Gender Identity Female 10/09/2022 9:08 AM CDT Sexual Orientation Choose not to disclose 2022 9:08 AM CDT documented as of this encounter Last Filed Vital Signs Vital Sign Reading Time Taken Comments Blood Pressure 124/64 11/06/2022 10:13 AM CDT Pulse 66 11/06/2022 10:13 AM CDT Temperature - - Respiratory Rate - - Oxygen Saturation 99% 11/06/2022 10:13 AM CDT Inhaled Oxygen Concentration - - Weight 65.9 kg (145 lb 4.8 oz) 11/06/2022 10:13 AM CDT Height 154.9 cm (5' 1 ) 11/06/2022 10:13 AM CDT Body Mass Index 27.45 11/06/2022 10:13 AM CDT documented in this encounter Progress Notes * Mannie Hernandez MD - 11/06/2022 10:15 AM CDT [facility] FOLLOW UP 11/06/2022 Abena Giron is a 82 y.o. female who presents for follow up of coronary artery disease, previousinfarction, atrial fibrillation and previously implanted pacemaker device. This is a patient who was seen by me in consultation in 2021 when she transferred her care from her previous director of special education our practice. Her history dates back to 2014 when she sustained a myocardial infarction and underwent percutaneous revascularization up in [place]. Following that she presented with atrial fibrillation [...] her refusal to take any anti-lipid medication. She comes to the office today for follow-up earlier than her scheduled appointment because of shortness of breath. A lot has happened to her since her last appointment with me in June. On August 03, 2022 she was hospitalized with an acute stroke. She was taken to [place] where she was had an acutely close left middle cerebral artery. This was treated with TNK and mechanical thrombectomy. During thathospitalization Cardiology was consulted at [place] because her ejection fraction was low at 20%. She was placed on medical therapy for this including metoprolol succinate and losartan. Following thatshe was transferred to rehab at and apparently losartan was stopped at that insti tution because of hypotension. 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 It appears that she became agreeable to taking statin therapy because she is now taking rosuvastatin which she adamantly refused in the past. In the office today she looks remarkably good considering all that has transpired. Her daughter brought her in for the appointmentsays that there has been significant neurological recovery. Her right side is still weak and she still has some difficulty speaking but otherwise seems to be doing remarkably well she is really not vasquez ving much in the way of any shortness of breath despite the low ejection fraction she says with walking about the house she does have some dyspnea with activity but nothing else in the way of orthopnea or PND there is no lower extremity edema. REVIEW OF SYSTEMS General ROS: negative for [...] nausea/vomiting Genito-Urinary ROS: negative for - dysuria, erectile dysfunction or hematuria Musculoskeletal ROS: negative for - [...] by mouth nightly, Disp: 90 tablet,Rfl: 0 cyanocobalamin (Vitamin B-12) 100 mcg tablet, Take 10 tablets (1,000 mcg total) by mouth daily (Patient not taking: Reported on 08/29/2022), Disp: , Rfl: spironolactone (ALDACTONE) 25 mg tablet, Take 0.5 [...] for component: LABALBU PHYSICAL EXAM Vitals BP 124/64 (BP Location: Right arm, Patient Position: Sitting) Pulse 66 Ht 154.9 cm (5' 1 ) Wt 65.9 kg (145 lb 4.8 oz) LMP (LMP Unknown) SpO2 99% BMI 27.45 kg/m?? Physical Examination: General appearance - alert, [...] noted ASSESSMENT Abena was seen today for follow-up and atrial fibrillation. Diagnoses and all orders for this visit: History of coronary artery stent placement Coronary artery disease involving [place] coronary artery of [place] heart without angina pectoris Paroxysmal atrial fibrillation ([facility] ([facility]) Cardiac pacemaker in situ HFrEF (heart failure with reduced ejection fraction) ([facility] ([facility]) PLAN/RECOMMENDATIONS For now will leave her medications as they are. She would benefit from institution of ARB or ARNI but given her recent CVA I will not take that step today. She has an appointment to see me in January will consider instituting vasodilators therapy at thattime if she has been stable Continue routine pacemaker follow-up as has been our routine Mannie Hernandez MD documented in this encounter Plan of Treatment Not on file documented as of this encounter Visit Diagnoses Diagnosis History of coronary artery stent placement- Primary Coronary artery disease involving [place] coronary artery of [place] heart without angina pectoris Paroxysmal atrial fibrillation ([facility]) ([facility]) Atrial fibrillation Cardiac pacemaker in situ HFrEF (heart failure with reduced ejection fraction) ([facility]) ([facility]) documented in this encounter Discontinued Medications Medication Sig Discontinue Reason Start Date End Da te furosemide (LASIX) 40 mg tabletIndications:hypert ension Take 1 tablet (40 mg total) by mouth daily Dose adjustment 08/22/2022 11/06/2022 documented as of this encounter Historical Medications * This list may reflect changes made after this encounter. Medication Sig Dispense Quantity Refills Last Filled Start D ate End Date furosemide (LASIX) 20 mg tablet 10/28/2022 added in this encounter Care Teams Cardroom Drawing Runner Relationship Specialty Start Date End Date Jaleel Mcgovern MD PCP - General Family Practice 07/18/22 Reynaldo Flannery DO Consulting Physician Cardiology 09/26/17 Guanakito Holland MD Consulting Physician Cardiovascular Disease 07/29/18 documented as of this encounter
--- OUTSIDE RECORDS SUMMARY | 2024-04-11 06:35 | XMS_ITS | Encounter Summary ---
Author Organization [facility] Address [address] [place] [address] Phone Care Team Providers Care Cupola Melter Helper Name Role Phone Reynaldo Flannery DO Unavailable [phone] Guanakito Holland MD Unavailable [phone] Jaleel Mcgovern MD Primary Care Provider [phone] Reason for Visit * Auth/Cert (Routine) Specialty Diagnoses / Procedures Referred By Contac t Referred To Contact Referral ID Status Reason Start Date Expiration Date Visits Re quested Visits Authorized [id number] 1 1 Encounter Details Date Type Department Care Team (Late st Contact Info) Description 10/15/2022 10:30 AM CDT Home Care Visit [facility] Home Health [address] [address] [address] [place] [address] Keisha Strauss COTA OT HOME VISIT Social [...] or relatives? 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 Gender Identity Female 10/09/2022 9:08 AM CDT Sexual Orientation Choose not to disclose 2022 9:08 AM CDT documented as of this encounter Last Filed Vital Signs Vital Sign Reading Time Taken Comments Blood Pressure 100/62 10/15/2022 11:09 AM CDT Pulse 85 10/15/2022 11:09 AM CDT Temperature 36.7 ??C (98 ??F) 10/15/2022 11:09 AM CDT Respiratory Rate 18 10/15/2022 11:09 AM CDT Oxygen Saturation 99% 10/15/2022 11:09 AM CDT Inhaled Oxygen Concentration - - Weight - - Height - - Body Mass Index - - documented in this encounter Miscellaneous Notes * Home Health Plan for Next Visit - Keisha Strauss COTA - 10/15/2022 12:17 PM CDT Reason for today's visit: to review steps to don bra, EC, balance, and kitchen task using affected RUE to support return to PLOF in ADL function. Discuss plan of care with pt. Discharge planning: to OP OT when OT goals have been met or max potential has been reached. Plan for next visit: to address process of doning new front closure bra. Pt in agreement with [facility]. documented in [...] home health visit Disciplines: SN, PT, OT, NURSING SPECIALIST, WINDER FIXER, Skilled Disciplines Monitor patient's vital signs every [...] visit during episode of care Description: Home access rn to measure vital signs during every home [...] from clutter/obstacles, removal of throw rugs, and safety by use of balance principles, body alignment, keeping head in neutral to reduce fall risk. Pt/caregiver verbalized understanding. [...] activity tolerance Problem:OT Activity Tolerance/Energy Conservation Completed Instruct patient/caregiver in techniques for improved activity tolerance. Pt voiced understand and required cues for rest break. Instruct in house management/homemaking activities Description: Instruct patient/caregiver for improved performance with house management/homemaking activities. Problem:OT Impaired IADLs Completed Pt ed in strategies for kitchen activities to: put away dishes, to use ice making machine/fill with water, and to organize notes on refridgerator. Ed pt in gripping cup with R hand and supporting bottom of cup with L hand. Pt voiced understanding with F+ return demo. Balance Activities Description: Balance Activities. Problem:OT Impaired Functional Mobility/Balance Completed Pt ed in body alignment, placement of feet, facing objects/work surface, proximity to work surface, avoiding over-reaching to improve balance and for fall prevention during standing IADL/kitchen task. Pt verbalized understanding of strategy and stood for one trial x 18 minutes with and without UE support with F+/G- balance, SBA. ADL Instruction Description: Instruct patient/caregiver for improved ADL performance. Problem:OT Impaired ADLs Completed Reviewed uyxw-ab-[id number] process to don bra by first hooking, donning overhead, and then placing RUE through strap first (like a tank top). Pt voiced understanding, reported doing in this manner, and stated I dressed myself today. Pt and dtr reported front closure bra has been ordered but has not yet arrived. documented in this encounter Care Teams Cupola Melter Helper Relationship Specialty Start Date End Date Jaleel Mcgovern MD PCP - General Family Practice 07/18/22 Reynaldo Flannery DO Consulting Physician Cardiology 09/26/17 Guanakito Holland MD Consulting Physician Cardiovascular Disease 07/29/18 documented as of this encounter
--- OUTSIDE RECORDS SUMMARY | 2024-04-11 06:35 | XMS_ITS | Encounter Summary ---
Author Organization [facility] Address [address] [place] [address] Phone Care Team Providers Care Horticultural Agent Name Role Phone Reynaldo Flannery DO Unavailable [phone] Guanakito Holland MD Unavailable [phone] Jaleel Mcgovern MD Primary Care Provider [phone] Reason for Visit * Auth/Cert (Routine) Specialty Diagnoses / Procedures Referred By Contac t Referred To Contact Referral ID Status Reason Start Date Expiration Date Visits Re quested Visits Authorized [id number] 1 1 Encounter Details Date Type Department Care Team (Late st Contact Info) Description 10/17/2022 9:30 AM CDT Home Care Visit [facility] Home Health [address] [address] [address] [place] [address] Keisha Strauss COTA OT HOME VISIT Social [...] or relatives? Once a week 08/12/2022 Attends [employer] Not on file 08/12 Active Member [...] Recorded Patient Health Questionnaire-2 Score 0 08/23/2022 [facility]at [facility] - Occupational Stress Questionnaire Answer Date [...] place to sleep or slept in a penitentiary (including now)? No 08/12/2022 Personal Safety Answer Date Recorded Have you ever been in or are you currently in a harmful physical or emotional relationship or is someone making you feel afraid or unsafe? 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 Gender Identity Female 10/09/2022 9:08 AM CDT Sexual Orientation Choose not to disclose 2022 9:08 AM CDT documented as of this encounter Last Filed Vital Signs Vital Sign Reading Time Taken Comments Blood Pressure 100/60 10/17/2022 10:00 AM CDT Pulse 79 10/17/2022 10:00 AM CDT Temperature 36.3 ??C (97.3 ??F) 10/17/2022 10:00 AM C DT Respiratory Rate 18 10/17/2022 10:00 AM CDT Oxygen Saturation 97% 10/17/2022 10:00 AM CDT Inhaled Oxygen Concentration - - Weight - - Height - - Body Mass Index - - documented in this encounter Miscellaneous Notes * Home Health Plan for Next Visit - Keisha Strauss COTA - 10/17/2022 10:54 AM CDT Reason for today's visit: to address kitchen ADL and non-pharmaceutical pain relief to support ADL function. Discuss plan of care with pt and dtr Discharge planning: pt can benefit from OP OT. Plan for next visit: Email Update to OTR Morena to advise of need for reassessment. Pt prepped fordc. documented in this encounter Plan of Treatment [...] home health visit Disciplines: SN, PT, OT, CLIENT CARE CONSULTANT, GUIDEMAN, Skilled Disciplines Monitor patient's vital signs every [...] visit during episode of care Description: Home hospital nursing assistant to measure vital signs during every [...] keeping head in neutral to reduce fall risk during kitchen tasks today. Pt/caregiver verbalized understanding. Assess safety Description: Assess patient safety Problem:Safety concerns Goal:Demonstrate use of safety precautions Scheduled Instruct on pain management techniques Description: Instruct in pharmacologic and nonpharmacologic pain management techniques. Problem:Pain Goal:Report that pain has been reduced or controlled Completed Pt ed in relaxation tech to include breathing, positioning with use of music for distraction to establish a mental focus with good outcome. Energy Conservation Education Description: Instruct patient/caregiver in techniques for improved activity tolerance Problem:OT Activity Tolerance/Energy Conservation Completed Ed patient in energy conservation (EC) techniques for improved activity tolerance; best time of day, work simplification/break ing task into smaller steps, sitting to complete tasks rest breaks, pacing, and breathing tech to improve ability to engage in daily occupations. Pt verbalized understanding. ADL Instruction Description: Instruct patient/caregiver for improved ADL performance. Problem:OT Impaired ADLs Completed Pt ed in kitchen task to reach to counter top and in refridgerator, to open and close various size containers with good return demo. documented in this encounter Care Teams Horticultural Agent Relationship Specialty Start Date End Date Jaleel Mcgovern MD PCP - General Family Practice 07/18/22 Reynaldo Flannery DO Consulting Physician Cardiology 09/26/17 Guanakito Holland MD Consulting Physician Cardiovascular Disease 07/29/18 documented as of this encounter
--- OUTSIDE RECORDS SUMMARY | 2024-04-11 06:35 | XMS_ITS | Encounter Summary ---
Author Organization [facility] Address [address] [place] [address] Phone Care Team Providers Care Parking Technician Name Role Phone Alma Delia Reynaldo Rees DO Unavailable [phone] Guanakito Holland MD Unavailable [phone] Jaleel Mcgovern MD Primary Care Provider [phone] Reason for Visit * Reason Comments Weakness - Generalized * Auth/Cert (Routine) Specialty Diagnoses / Procedures Referred By Contac t Referred To Contact Referral ID Status Reason Start Date Expiration Date Visits Re quested Visits Authorized [id number] 1 1 Encounter Details Date Type Department Care Team (Late st Contact Info) Description 09/17/2022 1:30 PM CDT Home Care Visit [facility] Home Health [address] [address] [address] [place] [address] Lizbet Colbert PTA PT HOME VISIT Social [...] Recorded Patient Health Questionnaire-2 Score 0 08/23/2022 [facility] Occupat ional Health - Occupational Stress [...] on file 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 Gender Identity Female 10/09/2022 9:08 AM CDT Sexual Orientation Choose not to disclose 2022 9:08 AM CDT documented as of this encounter Last Filed Vital Signs Vital Sign Reading Time Taken Comments Blood Pressure 100/58 09/17/2022 1:49 PM CDT Pulse 67 09/17/2022 1:49 PM CDT Temperature 35.7 ??C (96.3 ??F) 09/17/2022 1:49 PM CD T Respiratory Rate 18 09/17/2022 1:49 PM CDT Oxygen Saturation 99% 09/17/2022 1:49 PM CDT Inhaled Oxygen Concentration - - Weight - - Height - - Body Mass Index - - documented in this encounter Miscellaneous Notes * Home Health Plan for Next Visit - Lizbet Colbert PTA - 09/17/2022 1:47 PM CDT Reason for today's visit strength, [...] home health visit Disciplines: SN, PT, OT, AND DRYING SUPERVISOR COOKING CASING, FREEDOM OF INFORMATION OFFICER, Skilled Disciplines Monitor patient's vital signs [...] visit during episode of care Description: Home cardio clinician to measure vital signs during every [...] or controlled Completed reviewed with pt and daughter on pharmacologic and nonpharmacologic pain management techniques and voiced understanding. Gait/Stair Training Description: Instruct patient/caregiver and perform gait/stair training. Problem:PT Impaired Functional Mobility/Balance Completed Pt. instructed on gait training outright t/o home making 10 laps with sba. Pt completed gait training with increased tj, decreased right arm swing, decreased toe clearance right about 25% of the time, slight flexed posture. Provided pt with verbal cues to improve technique with pt demonstrating good understanding of the instruction/cues provided. initiated gait training around obstsacles on the floor with cga with 3 lateral lob with min assist to recover secondary to decreased right single leg stance. Balance Training/Activities Description: Instruct patient/caregiver and perform balance training activities. Problem:PT Impaired Functional Mobility/Balance Completed Patient educated on balance challenges standing with single UE support while performing static stance with decresaed tj eyes open and eyes closed, staggered stance eyes open, alternating foot placement on 6inch tub, single leg stance with foot on tub and then with bilateral UE support of therapist. Completed sidestepping and retro steps with bilateral UE support. pt completed balance challenges with min to mod assist and with right stance activities noted increased right leaning and right trunk sidebending. Proivded verbal cues for posture and core contraction, pt vocalized understanding of the cues and instruction provided. Therapeutic Exercise Description: Perform therapeutic exercise, progressing as tolerated. Problem:PT Impaired Functional Mobility/Balance Completed Pt. instructed in seated therex reps x 1 set with green theraband for bilateral hip flex, abd, knee ext, and ankle df/pf. Pt. demonstrated understanding of the exercises and instruction provided and noted to have improved control of the right le with the exercises documented in this encounter Care Teams Parking Technician Relationship Specialty Start Date End Date Jaleel Mcgovern MD PCP - General Family Practice 07/18/22 Reynaldo Flannery DO Consulting Physician Cardiology 09/26/17 Guanakito Holland MD Consulting Physician Cardiovascular Disease 07/29/18 documented as of this encounter
--- OUTSIDE RECORDS SUMMARY | 2024-04-11 06:35 | XMS_ITS | Encounter Summary ---
Author Organization [facility] Home Care Servic es Address [address] [place] [address] Phone Care Team Providers Care Lumber Inspector Name Role Phone Reynaldo Flannery DO Unavailable [phone] Guanakito Holland MD Unavailable [phone] Jaleel Mcgovern MD Primary Care Provider [phone] Reason for Visit * Reason Comments Extremity Weakness * Auth/Cert (Routine) Specialty Diagnoses / Procedures Referred By Contac t Referred To Contact Referral ID Status Reason Start Date Expiration Date Visits Re quested Visits Authorized [id number] 1 1 Encounter Details Date Type Department Care Team (Late st Contact Info) Description 09/17/2022 11:15 AM CDT Home Care Visit [facility] Home Health [address] [address] [address] [place] [address] Keisha Strauss COTA OT HOME VISIT Social [...] 0 08/23/2022 [facility] - Occupational [...] on file 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 Gender Identity Female 10/09/2022 9:08 AM CDT Sexual Orientation Choose not to disclose 2022 9:08 AM CDT documented as of this encounter Last Filed Vital Signs Vital Sign Reading Time Taken Comments Blood Pressure 100/58 09/17/2022 12:51 PM CDT Pulse 67 09/17/2022 12:51 PM CDT Temperature 35.7 ??C (96.3 ??F) 09/17/2022 12:51 PM C DT Respiratory Rate 18 09/17/2022 12:51 PM CDT Oxygen Saturation 99% 09/17/2022 12:51 PM CDT Inhaled Oxygen Concentration - - Weight - - Height - - Body Mass Index - - documented in this encounter Miscellaneous Notes * Home Health Plan for Next Visit - Keisha Strauss COTA - 09/17/2022 12:30 PM CDT Reason for today's visit: to instruct in shower transfer, UE dressing strategies (pt reports difficulty doning bra), fall prevention, UE HEP and FMC activities to support ADL function. Discuss plan of care with pt and dtr. Discharge planning: to self with family assist prn when OT goals have been met or max potential hasbeen reached. Plan for next visit: to address UE HEP, FMC, and UE dressing to improve donning bra (try hooking first and donning like a t-shirt). Pt and dtr in agreement with [facility]. [...] home health visit Disciplines: SN, PT, OT, COMMUNITY AMBASSADOR, REFLECTOR DRILLER AND DEBURRER, Skilled Disciplines Monitor patient's vital signs every [...] visit during episode of care Description: Home janitor cleaner to measure vital signs during every home [...] engage in daily occupations. Pt verbalized understanding. Home Exercise Program (HEP) Description: Instruct patient/caregiver and perform HEP. Problem:OT Impaired UE Function and/or Fine Motor Skills Completed Pt ed in therepeutic exercise to include BUE AROM x 10 reps, shoulder shrugs, scapular retractions, active shoulder composite rotations, horizontal add/abd and UE SROM for shoulder flex with sustained hold at end of range with focus on improved flexibility for daily occupation and dressing tasks. Therapeutic Exercise Description: Perform and progress therapeutic exercise. Problem:OT Impaired UE Function and/or Fine Motor Skills Completed Pt ed in AROM hand HEP; slow/gentle dip/pip/mcp flexion/ext/add/abd/ serial opposition to improve flexibility for ADLs, ed in use of pink theraputty for the following exercises: finger hook, full hand cryptologist, and finger spread with cues for proper tech. Exercise completed to improve coordination and in-hand manipulation for dressing tasks such as zipping, buttoning, and grasp to pull down shirt/pull up pants. Pt ed in various [facility] activities to improve ability to manage bra hooks and other dressing tasks, to crumble, straighten, and fold a 17 x24 pad and to stack coins. Pt issued [facility] activity handout for [facility] homework. Pt and dtr voiced understanding and intent to perform daily. Transfer Training Description: Instruct patient/caregiver and perform transfer training. Problem:OT Impaired Functional Mobility/Balance Completed Pt ed in proper tech for sofa, shower chair, and toilet transfers to include scoot to front of seat, placement of hands and feet, and use of body dynamics, to reduce fall risk and caregiver burden. Patient verbalized understanding and good return demo with close SBA. ADL Instruction Description: Instruct patient/caregiver for improved ADL performance. Problem:OT Impaired ADLs Completed Pt ed in use of strategies for UE ressing. Pt was able to don bra by hooking first and donning over head like a t shirt starting with weaker RUE. Pt voiced understanding with F+ return demo. Pt will likely need additional training to improve ease with this method. documented in this encounter Care Teams Lumber Inspector Relationship Specialty Start Date End Date Jaleel Mcgovern MD PCP - General Family Practice 07/18/22 Reynaldo Flannery DO Consulting Physician Cardiology 09/26/17 Guanakito Holland MD Consulting Physician Cardiovascular Disease 07/29/18 documented as of this encounter
--- OUTSIDE RECORDS SUMMARY | 2024-04-11 06:35 | XMS_ITS | Encounter Summary ---
Author Organization [facility] Home Care Servic es Address [address] [place] [address] Phone Care Team Providers Care Ship Boss Name Role Phone Reynaldo Flannery DO Unavailable Guanakito Holland MD Unavailable [phone] Jaleel Mcgovern MD Primary Care Provider [phone] Reason for Visit * Reason Comments Weakness - Generalized * Auth/Cert (Routine) Specialty Diagnoses / Procedures Referred By Contac t Referred To Contact Referral ID Status Reason Start Date Expiration Date Visits Re quested Visits Authorized [id number] 1 1 Encounter Details Date Type Department Care Team (Late st Contact Info) Description 09/23/2022 10:15 AM CDT Home Care Visit [facility] Home Health [address] [address] [address] [place] [address] Lizbet Colbert PTA PT HOME VISIT Social [...] or relatives? Once a week 08/12/2022 Attends J[employer]ism Services Not on file 08/12 Active Member [...] Recorded Patient Health Questionnaire-2 Score 0 08/23/2022 [facility] [place] [facility] Occupat ional Health - Occupational Stress [...] place to sleep or slept in a custodial (including now)? No 08/12/2022 Personal Safety Answer Date Recorded Have you ever been in or are you currently in a harmful physical or emotional relationship or is someone making you feel afraid or unsafe? 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 Gender Identity Female 10/09/2022 9:08 AM CDT Sexual Orientation Choose not to disclose 2022 9:08 AM CDT documented as of this encounter Last Filed Vital Signs Vital Sign Reading Time Taken Comments Blood Pressure 126/70 09/23/2022 10:23 AM CDT Pulse 63 09/23/2022 10:23 AM CDT Temperature 36.5 ??C (97.7 ??F) 09/23/2022 10:23 AM C DT Respiratory Rate 18 09/23/2022 10:23 AM CDT Oxygen Saturation 95% 09/23/2022 10:23 AM CDT Inhaled Oxygen Concentration - - Weight - - Height - - Body Mass Index - - documented in this encounter Miscellaneous Notes * Home Health Plan for Next Visit - Lizbet Colbert PTA - 09/23/2022 10:53 PM CDT Reason for today's visit strength, balance, transfers, gait and safety training. Discuss plan of care with pt who remains agreeable. Updated PT Discharge planning ongoing at [...] home health visit Disciplines: SN, PT, OT, BUSINESS ACCOUNT SPECIALIST, WIRE MESH GATE ASSEMBLER, Skilled Disciplines Monitor patient's vital signs [...] visit during episode of care Description: Home tutoring clinician to measure vital signs during every [...] pain has been reduced or controlled Completed Revieed with pt and daughter on pharmacologic and nonpharmacologic pain management techniques. Transfer training Description: Instruct patient/caregiver and perform transfer training. Problem:PT Impaired Functional Mobility/Balance Completed Pt. instructed on sit to stand transfers from couch with sba and cues for use of bilateral UE assist as pt right le tends to draw up into a flexion pattern and completed with increased tj and decreased anterior push requiring 1- 3 attempts to complet. With stand to sit pt demoed pooe technique, control and safety. Provided pt with cues for technique and demoed understanding to complete transfers safely. Gait/Stair Training Description: Instruct patient/caregiver and perform gait/stair training. Problem:PT Impaired Functional Mobility/Balance Completed Pt. instructed on gait training outright t/o home for distances around 100' with emphasis on right toe off, foot clearance and heel strike. Pt completed gait training with sba with 3 lob secondary to pt with no foot clearance right le while and demoed a min flexed posutre at hips, increased tj, and right LE flexed at elblw and hoilding at chest. Provided pt with verbal cues to improve technique with pt demonstrating understanding of the instruction/cues provided. performed pre gait activites with min assist to maintain cog while completing single and alternating heel touches, followed with single heel touch to flat foot x 5 reps each le. pt noted to have decreased stability with le advancement with right le as compared to left le. pt completed step x 3 with single handrail with sba. provided cues for decreased kimberly and to ensure proper/full foot placement on each step. Performed step ups at steps with use of single rail and sba x 10 reps. pt completed reps 1-6 with good technique and control, reps 7-10 noted decreased foot placement and decreased ability to weight shift and push thorugh the right le which was leading each forward step up. Balance Training/Activities Description: Instruct patient/caregiver and perform balance training activities. Problem:PT Impaired Functional Mobility/Balance Completed Patient educated on balance challenges standing with out UE support while performing static stance with decresaed tj eyes open and eyes closed, staggered stance eyes open all 30 sec holds x 1 bout each with cga, contralateral and ipsilateral shoudler flex and hip flex with moderate assist, and single leg stance with bilateral UE support with min to mod assist to complete. noted significant trunk ext when completing. Provided verbal cues for , pt vocalized understanding of the cues and instruction provided. performed side stepping outright with close sba across living room about 10' x 4 bouts with 3 bouts of pt unable to lift right le to clear the floor. documented in this encounter Care Teams Ship Boss Relationship Specialty Start Date End Date Jaleel Mcgovern MD PCP - General Family Practice 07/18/22 Reynaldo Flannery DO Consulting Physician Cardiology 09/26/17 Guanakito Holland MD Consulting Physician Cardiovascular Disease 07/29/18 documented as of this encounter
--- OUTSIDE RECORDS SUMMARY | 2024-04-11 06:35 | XMS_ITS | Encounter Summary ---
Author Organization [facility] Home Care Servic es Address [address] [place] [address] Phone Care Team Providers Care Fruit Harvest Machine Operator Name Role Phone Reynaldo Flannery DO Unavailable [phone] Guanakito Holland MD Unavailable [phone] Jaleel Mcgovern MD Primary Care Provider [phone] Reason for Visit * Auth/Cert (Routine) Specialty Diagnoses / Procedures Referred By Contac t Referred To Contact Referral ID Status Reason Start Date Expiration Date Visits Re quested Visits Authorized [id number] 1 1 Encounter Details Date Type Department Care Team (Late st Contact Info) Description 09/19/2022 2:00 PM CDT Home Care Visit [facility] Home Health [address] [address] [address] [place] [address] Watson Sanchez, PT PT REASSESSMENT Social History [...] or relatives? 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 Gender Identity Female 10/09/2022 9:08 AM CDT Sexual Orientation Choose not to disclose 2022 9:08 AM CDT documented as of this encounter Last Filed Vital Signs Vital Sign Reading Time Taken Comments Blood Pressure 129/68 09/19/2022 1:54 PM CDT Pulse 91 09/19/2022 1:54 PM CDT Temperature 36.1 ??C (97 ??F) 09/19/2022 1:54 PM CDT Respiratory Rate 18 09/19/2022 1:54 PM CDT Oxygen Saturation 94% 09/19/2022 1:54 PM CDT Inhaled Oxygen Concentration - - Weight - - Height - - Body Mass Index - - documented in this encounter Miscellaneous Notes * Home Health Visit Narrative - Watson Sanchez, PT - 09/19/2022 1:52 PM CDT patient present for homecare reassessment. Patient is progressing very well toward goals, good compliance with HEP. Continues to have excellent family support, one of her daughters is present 14/10. Further therapy necessary to achieve goals. * Home Health Plan for Next Visit - Watson Sanchez PT - 09/19/2022 1:52 PM CDT Reason for today's visit: homecare PT evaluation Discussed plan of care intervention with patient, who remains agreeable. Discharge planning: ongoing Plan for next visit: continue LE strengthening, gait training, balance training as tolerated/able. documented in this encounter Plan of Treatment [...] home health visit Disciplines: SN, PT, OT, GEOTHERMAL OPERATIONS ENGINEER, SALES ADMINISTRATOR, Skilled Disciplines Monitor patient's vital signs every [...] 4 goals linked to scheduled/documen vickie interventions 3 problem interventions scheduled/documen vickie in this visit Goals Goal Associated Problem Outcome Goal Met? Visit Notes Patient receives care at the most appropriate care setting Description: Patient receives care at the most appropriate care setting. Homebound Status No Measure vital signs during every home health visit during episode of care Description: Home membership administrator to measure vital signs during every home health visit during episode of care. Monitor patient's vital signs every home health visit No Demonstrate use of safety precautions Description: Patient/caregiver maintains safe home environment as evidenced by remaining free from injury and demonstrates use of safety precautions. Safety concerns No Report that pain has been reduced or controlled Description: Patient/caregiver/zain bella will verbalize satisfaction with the patients level of pain and symptom control. Pain No Improvement with Transfers Description: transfers without assist safely from a variety of household surfaces consistently including edge of bed, toilet, chair. Assist with vehicle and shower transfers as needed. Achieve by 10/12/22. PT Impaired Functional Mobility/Balance Progressing No Improvement in Gait/Stair Training Description: Patient will ambulate 500+ feet in home using walker modified independent by 10/26/22. Patient will negotiate front and/or back steps using hand rail and min assist or better to access transportation/communi ty activities by 10/12/22. PT Impaired Functional Mobility/Balance Progressing No patient currently ambulating without AD, requires sba for safety. spv assist with walker for cues to increase right foot clearance. Improvement with balance Description: Improve Tinetti score from 16/28 at IE to by therapy 10/12/22. Improve balance during ADL's, IADL's, functional mobility as evidenced by no falls with injury during HomeCare episode. PT Impaired Functional Mobility/Balance Progressing No tinetti no known falls throughout therapy episode at this time. Performance with HEP Description: Patient/caregiver to be independent with progressed HEP by therapy discharge. PT Impaired Functional Mobility/Balance Progressing No Interventions Intervention Associated Problem/Goal Status Variance [...] and provides safe verbalization/return demonstration of instructions. Verbal and tactile cues to increase right foot clearance during right swing phase and heel strike at initial contact. Cues to shift hips forward during gait. Improved s/p cues Therapeutic Exercise Description: Perform therapeutic exercise, progressing as tolerated. Problem:PT Impaired Functional Mobility/Balance Completed documented in this encounter Care Teams Fruit Harvest Machine Operator Relationship Specialty Start Date End Date Jaleel Mcgovern MD PCP - General Family Practice 07/18/22 Reynaldo Flannery DO Consulting Physician Cardiology 09/26/17 Guanakito Holland MD Consulting Physician Cardiovascular Disease 07/29/18 documented as of this encounter
--- OUTSIDE RECORDS SUMMARY | 2024-04-11 06:35 | XMS_ITS | Encounter Summary ---
Author Organization [facility] Home Care Servic es Address [address] [place] [address] Phone Care Team Providers Care Transportation Coordinator Name Role Phone Reynaldo Flannery DO Unavailable [phone] Guanakito Hollnad MD Unavailable Jaleel Mcgovern MD Primary Care Provider [phone] Reason for Visit * Reason Comments Weakness - Generalized * Auth/Cert (Routine) Specialty Diagnoses / Procedures Referred By Contac t Referred To Contact Referral ID Status Reason Start Date Expiration Date Visits Re quested Visits Authorized [id number] 1 1 Encounter Details Date Type Department Care Team (Late st Contact Info) Description 09/26/2022 10:15 AM CDT Home Care Visit [facility] Home Health [address] [address] [address] [place] [address] Lizbet Colbert PTA PT HOME VISIT Social [...] or relatives? 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 Gender Identity Female 10/09/2022 9:08 AM CDT Sexual Orientation Choose not to disclose 2022 9:08 AM CDT documented as of this encounter Last Filed Vital Signs Vital Sign Reading Time Taken Comments Blood Pressure 122/64 09/26/2022 10:39 AM CDT Pulse 80 09/26/2022 10:39 AM CDT Temperature 36.9 ??C (98.4 ??F) 09/26/2022 10:39 AM C DT Respiratory Rate 16 09/26/2022 10:39 AM CDT Oxygen Saturation 99% 09/26/2022 10:39 AM CDT Inhaled Oxygen Concentration - - Weight - - Height - - Body Mass Index - - documented in this encounter Miscellaneous Notes * Home Health Plan for Next Visit - Lizbet Colbert, COAL LOADER - 09/26/2022 10:27 AM CDT Reason for today's visit strength, balance, transfers, gait and safety training. Discuss plan of care with pt and daughter who remain agreeable, Updated PT Discharge planning ongoing at this time. Plan for next visit to cont to progress HEP, strength, balance, gait and transfers to facilitate improved functional ability and mobility and to decrease fall risk. Pt reported having feeling of anger about how the stroke has effected her. Discussed with her and daughter that some people who have a stroke will go through the symptoms of grief, grief for the lossof function and of the life they had prior. Pt stated well I feel better knowing that and that makes sense to me Encouraged pt to talke with her family about her feelings and if they become to overwhelmeing then she should talk to her PCP about it. Pts daughter stated that they would be ontop of monitoring that. documented in this encounter Plan of Treatment [...] home health visit Disciplines: SN, PT, OT, ORTHOTIC/PROSTHETIC PRACTITIONER, DATA CENTER CONSULTANT, Skilled Disciplines Monitor patient's vital signs [...] visit during episode of care Description: Home gang bore operator to measure vital signs during every [...] pain has been reduced or controlled Completed Instruct in pharmacologic and nonpharmacologic pain management techniques. Transfer training Description: Instruct patient/caregiver and perform transfer training. Problem:PT Impaired Functional Mobility/Balance Completed Gait/Stair Training Description: Instruct patient/caregiver and perform gait/stair training. Problem:PT Impaired Functional Mobility/Balance Completed Gait training completed inside and outside of home including steps and gait on grass and unlevel surfaces. pt completed gait in home with sba with increased candence, decreased right toe clearance, and flexed at hips. Gait completed on steps in home with rail and sba utilizing a single step technique. Outside gait completed with min to cga. noted decreased but still a to fast kimberly for the amulation surface. pt completed with increased tj, flexed at hips, decreased step length, height, heel strike bilaterally and decreased foot/toe clearance right le. pt noted to have 3 lob with min assist to recover. To exit the door way from the house and to enter her backyard area there thresholds that pt has to step over. pt utilized the frames and utilized correct foot sequence however she was unable to clear the right foot and when exiting the yard, pt gor her thumb on right hand caught in the iron gait. pt completed gait around obstacles on the ground with sba and min assist when completing with sidestepping. pt then completed item retrieval from the floor utilizing her right hand with cga to maintain cog. Balance Training/Activities Description: Instruct patient/caregiver and perform balance training activities. Problem:PT Impaired Functional Mobility/Balance Completed Patient educated on balance challenges standing with bilateral UE support with single leg stance x 2 bouts each le with min assist to maintain cog.Proivded verbal cues for core contraction, pt vocalized understanding of the cues and instruction provided. pt demoed decreased turnk leaning and improved contraction at core and gluts with the cues provided. Therapeutic Exercise Description: Perform therapeutic exercise, progressing as tolerated. Problem:PT Impaired Functional Mobility/Balance Completed Pt. instructed in seated therex 10 reps x 1 set with green theraband for bilateral hip flex, abd, knee ext, and ankle df/pf. Pt. demonstrated understanding of the exercises and instruction provided.Pt. instructed in standing therex 10 reps x 1 set with bilateral UE support of therapist for bilateral hip flex, hip abd and heel raises. Pt. demonstrated improved understanding of the exercises and instruction provided. pt with improved control of the les and core/posture with all exercises. documented in this encounter Care Teams Transportation Coordinator Relationship Specialty Start Date End Date Jaleel Mcgovern MD PCP - General Family Practice 07/18/22 Reynaldo Flannery DO Consulting Physician Cardiology 09/26/17 Guanakito Holland MD Consulting Physician Cardiovascular Disease 07/29/18 documented as of this encounter
--- OUTSIDE RECORDS SUMMARY | 2024-04-11 06:35 | XMS_ITS | Encounter Summary ---
Author Organization [facility] Home Care Servic es Address [address] [place] [address] Phone Care Team Providers Care Technology Assistant Name Role Phone Reynaldo Flannery DO Unavailable [phone] Guanakito Holland MD Unavailable [phone] Jaleel Mcgovern MD Primary Care Provider [phone] Reason for Visit * Auth/Cert (Routine) Specialty Diagnoses / Procedures Referred By Contac t Referred To Contact Referral ID Status Reason Start Date Expiration Date Visits Re quested Visits Authorized [id number] 1 1 Encounter Details Date Type Department Care Team (Late st Contact Info) Description 10/22/2022 Home Care Visit [facility] Home Health [facility] [address] [place] [address] Morena Holder, OT TELEPHONE ENCOUNTER Social History [...] Recorded Patient Health Questionnaire-2 Score 0 08/23/2022 [facility] of Occupat ional Health [...] on file Legal Sex Female 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
--- OUTSIDE RECORDS SUMMARY | 2024-04-11 06:35 | XMS_ITS | Encounter Summary ---
Author Organization [facility] Home Care Servic es Address [address] [place] [address] Phone Care Team Providers Care Community Relations Manager Name Role Phone Reynaldo Flannery DO Unavailable [phone] Guanakito Holland MD Unavailable [phone] Jaleel Mcgovern MD Primary Care Provider [phone] Reason for Visit * Auth/Cert (Routine) Specialty Diagnoses / Procedures Referred By Contac t Referred To Contact Referral ID Status Reason Start Date Expiration Date Visits Re quested Visits Authorized [id number] 1 1 Encounter Details Date Type Department Care Team (Late st Contact Info) Description 09/11/2022 10:00 AM CDT Home Care Visit [facility] Home Health [address] [address] [address] [place] [address] Litzy Zaragoza, PRE OWNED SALES CONSULTANT PRE OWNED SALES CONSULTANT HOME VISIT Social History Tobacco Use Types [...] Recorded Patient Health Questionnaire-2 Score 0 08/23/2022 [facility] of Occupat ional Health [...] on file 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 Gender Identity Female 10/09/2022 9:08 AM CDT Sexual Orientation Choose not to disclose 2022 9:08 AM CDT documented as of this encounter Last Filed Vital Signs Vital Sign Reading Time Taken Comments Blood Pressure 118/68 09/11/2022 10:33 AM CDT Pulse 58 09/11/2022 10:33 AM CDT Temperature 36.1 ??C (96.9 ??F) 09/11/2022 10:33 AM C DT Respiratory Rate 18 09/11/2022 10:33 AM CDT Oxygen Saturation 99% 09/11/2022 10:33 AM CDT Inhaled Oxygen Concentration - - Weight - - Height - - Body Mass Index - - documented in this encounter Miscellaneous Notes * Home Health Visit Narrative - Litzy Zaragoza SLP - 09/11/2022 11:[address] services provided this date for communication and swallowing including oral motor and airway protection exercises, review of diet recommendation, safe swallow precautions, and continued HEP development. Patient will benefit from further skilled ST services for communication and swallowing including therapeutic exercise, education, and continued development of home exercise program to improve patient's ability to communicate functional information in emergency situations and to decrease risk of aspiration and aspiration pneumonia. * Home Health Plan for Next Visit - Litzy Zaragoza SLP - 09/11/2022 11:12 AM CDT Reason for today's visit: skilled [...] - Care Plan Visit Details Visit Type -PRE OWNED SALES CONSULTANT Home Visit Discipline -Speech Language Pathology Problems Problem Description Start Date Status Goals Interve ntions Homebound Status Disciplines: Skilled Disciplines Patient's homebound status 08/28/2022 Active 1 goal linked to scheduled/documen vickie intervention 1 goal intervention scheduled/documen vickie in this visit Monitor patient's vital signs every home health visit Disciplines: SN, PT, OT, PRE OWNED SALES CONSULTANT, MANAGER MARKETING COMMUNICATION, Skilled Disciplines Monitor patient's vital signs every home health visit. 08/28/2022 Active 1 goal linked to scheduled/documen vickie intervention 1 goal intervention scheduled/documen vickie in this visit Safety concerns Disciplines: Skilled Disciplines Alteration in safety 08/28/2022 Active 1 goal linked to scheduled/documen vickie intervention 2 goal interventions scheduled/documen vickie in this visit PRE OWNED SALES CONSULTANT Impaired Swallowing Disciplines: Speech Language Pathology Impaired swallow with 09/05/2022 Active - 4 problem interventions scheduled/documen vickie in this visit PRE OWNED SALES CONSULTANT oral motor problems Disciplines: Speech Language Pathology [...] visit during episode of care Description: Home licensed clinician to measure vital signs during every [...] (HEP) Description: Instruct patient/caregiver and perform HEP. Problem:PRE OWNED SALES CONSULTANT Impaired Swallowing Completed Review and continued development of HEP for oral motor and airway protection exercises with patient and patient caregiver demonstrating comprehension. Instruct on diet with appropriate consistencies Description: Instruct patient/caregiver on diet with appropriate consistencies Problem:PRE OWNED SALES CONSULTANT Impaired Swallowing Completed Review of diet recommendation for soft solid texture solids with patient and patient caregiver demonstrating comprehension. Patient asked about lentils and beans, recommended that patient can have as long as they are cooked well. Instruct appropriate strategies to prevent choking/aspiration Description: Instruct patient/caregiver on appropriate strategies to prevent choking / aspiration Problem:PRE OWNED SALES CONSULTANT Impaired Swallowing Completed Review of safe swallow strategies including decreased rate, decreased bolus size, alternating liquids and solids, and sitting up straight during and 30 minutes following oral intake with patient and patient caregiver demonstrating comprehension. Instruct on swallowing exercises Description: Teach swallow exercises. Problem:PRE OWNED SALES CONSULTANT Impaired Swallowing Completed Completed oral motor and airway protection exercises including lingual protrusion, retraction, lateralization, and rotation, labial protrusion, retraction, and lateralization, lip closure, cinthia, and CTAR with skilled v/v instruction provided as needed. Home Exercise Program (HEP) Description: Instruct patient/caregiver and perform HEP. Problem:PRE OWNED SALES CONSULTANT oral motor problems Completed Review and continued development of HEP for communication with patient and patient caregiver demonstrating comprehension. documented in this encounter Care Teams Community Relations Manager Relationship Specialty Start Date End Date Jaleel Mcgovern MD PCP - General Family Practice 07/18/22 Reynaldo Flannery DO Consulting Physician Cardiology 09/26/17 Guanakito Holland MD Consulting Physician Cardiovascular Disease 07/29/18 documented as of this encounter
--- OUTSIDE RECORDS SUMMARY | 2024-04-11 06:35 | XMS_ITS | Encounter Summary ---
Author Organization [facility] Home Care Servic es Address [address] [place] [address] Phone Care Team Providers Care Manager Union Name Role Phone Reynaldo Flannery DO Unavailable [phone] Guanakito Holland MD Unavailable [phone] Jaleel Mcgovern MD Primary Care Provider [phone] Reason for Visit * Auth/Cert (Routine) Specialty Diagnoses / Procedures Referred By Contac t Referred To Contact Referral ID Status Reason Start Date Expiration Date Visits Re quested Visits Authorized [id number] 1 1 Encounter Details Date Type Department Care Team (Late st Contact Info) Description 09/26/2022 Home Care Visit [facility] Home Health [facility] [address] [place] [address] Morena Holder, OT OT SUPERVISORY VISIT Social History [...] Recorded Patient Health Questionnaire-2 Score 0 08/23/2022 [facility] of Occupat ional 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 Gender Identity Female 10/09/2022 9:08 AM [...] home health visit Disciplines: SN, PT, OT, AIRCRAFT INSPECTION RECORD CLERK, RN QUALITY, Skilled Disciplines Monitor patient's vital signs every [...] visit during episode of care Description: Home chief psychologist to measure vital signs during every home [...] Scheduled documented in this encounter Care Teams Manager Union Relationship Specialty Start Date End Date Jaleel Mcgovern MD PCP - General Family Practice 07/18/22 Reynaldo Flannery DO Consulting Physician Cardiology 09/26/17 Guanakito Holland MD Consulting Physician Cardiovascular Disease 07/29/18 documented as of this encounter
--- OUTSIDE RECORDS SUMMARY | 2024-04-11 06:36 | XMS_ITS | Encounter Summary ---
Author Organization [facility] Home Care Servic es Address [address] [place] [address] Phone Care Team Providers Care Compensation/Benefits Specialist Name Role Phone Alma Delia Reynaldo Rees DO Unavailable [phone] Guanakito Holland MD Unavailable [phone] Jaleel Mcgovern MD Primary Care Provider [phone] Reason for Visit * Reason Comments Weakness - Generalized * Auth/Cert (Routine) Specialty Diagnoses / Procedures Referred By Contac t Referred To Contact Referral ID Status Reason Start Date Expiration Date Visits Re quested Visits Authorized [id number] 1 1 Encounter Details Date Type Department Care Team (Late st Contact Info) Description 09/03/2022 12:00 PM CDT Home Care Visit [facility] Home Health [address] [address] [address] [place] [address] Lizbet Colbert PTA PT HOME VISIT Social [...] or relatives? 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 Gender Identity Female 10/09/2022 9:08 AM CDT Sexual Orientation Choose not to disclose 2022 9:08 AM CDT documented as of this encounter Last Filed Vital Signs Vital Sign Reading Time Taken Comments Blood Pressure 96/68 09/03/2022 12:15 PM CDT Pulse 73 09/03/2022 12:15 PM CDT Temperature 36.6 ??C (97.8 ??F) 09/03/2022 12:15 PM C DT Respiratory Rate 18 09/03/2022 12:15 PM CDT Oxygen Saturation 99% 09/03/2022 12:15 PM CDT Inhaled Oxygen Concentration - - Weight - - Height - - Body Mass Index - - documented in this encounter Miscellaneous Notes * Home Health Plan for Next Visit - Lizbet Colbert PTA - 09/03/2022 12:07 PM CDT Reason for today's visit strength, [...] home health visit Disciplines: SN, PT, OT, VISUAL DISPLAY ASSOCIATE, FABRICATING MACHINE OPERATOR, Skilled Disciplines Monitor patient's vital [...] visit during episode of care Description: Home nanotechnology engineering technician to measure vital signs during every home [...] from couch with use of bilateral UE assist and min to cga from therapist. Pt. demoed fair technique and understanding to complete transfers safely. provided verbal cues for handplacement, trunk flexion and anterior weight shift with fair follow through noted. Balance Training/Activities Description: Instruct patient/caregiver and perform balance training activities. Problem:PT Impaired Functional Mobility/Balance Completed Patient educated on balance challenges standing with UE support while performing static stance with decresaed tj with mod assist. completed heel to toe, retro steps and sidestepping with bilateral UE support and min to mod assist, pt performed single leg stance with mod assist and bilateral UE support. Pt completed seated lateral trunk sidebending down to forearm resting on the bed with sba to left and cga to right. Proivded verbal cues for posture, weight shift and on which muscle group to focus on robi, pt vocalized understanding and noted fair follow througth of the cues and instruction provided. Therapeutic Exercise Description: Perform therapeutic exercise, progressing as tolerated. Problem:PT Impaired Functional Mobility/Balance Completed Pt. instructed in seated therex re0ps x 1 set for bilateral hip flex, abd, knee ext, and ankle df/pf all with use of green theraband for resistance. Pt. demonstrated fair understanding of the exercises and instruction provided for improved control of the ex and to complete with decreased kimberly. Educated pts daughter on how to complete the ex with the resistance band. She voiced understanding. documented in this encounter Care Teams Compensation/Benefits Specialist Relationship Specialty Start Date End Date Jaleel Mcgovern MD PCP - General Family Practice 07/18/22 Reynaldo Flannery DO Consulting Physician Cardiology 09/26/17 Guanakito Holland MD Consulting Physician Cardiovascular Disease 07/29/18 documented as of this encounter
--- OUTSIDE RECORDS SUMMARY | 2024-04-11 06:36 | XMS_ITS | Encounter Summary ---
Author Organization [facility] Home Care Servic es Address [address] [place] [address] Phone Care Team Providers Care Global Recruiter Name Role Phone Reynaldo Flannery DO Unavailable [phone] Guanakito Holland MD Unavailable [phone] Jaleel Mcgovern MD Primary Care Provider [phone] Reason for Visit * Auth/Cert (Routine) Specialty Diagnoses / Procedures Referred By Contac t Referred To Contact Referral ID Status Reason Start Date Expiration Date Visits Re quested Visits Authorized [id number] 1 1 Encounter Details Date Type Department Care Team (Late st Contact Info) Description 08/28/2022 Home Care Visit [facility] Home Health [facility] [address] [place] [address] Watson Sanchez PT TELEPHONE ENCOUNTER Social History [...] or relatives? 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
--- OUTSIDE RECORDS SUMMARY | 2024-04-11 06:36 | XMS_ITS | Encounter Summary ---
Author Organization [facility] Home Care Servic es Address [address] [place] [address] Phone Care Team Providers Care Liner Inserter Name Role Phone Alma Delia Reynaldo Rees DO Unavailable [phone] Guanakito Holland MD Unavailable [phone] Jaleel Mcgovern MD Primary Care Provider [phone] Reason for Visit * Auth/Cert (Routine) Specialty Diagnoses / Procedures Referred By Contac t Referred To Contact Referral ID Status Reason Start Date Expiration Date Visits Re quested Visits Authorized [id number] 1 1 Encounter Details Date Type Department Care Team (Latest Contact Info) Description 08/28/2022 12:30 PM CDT Home Care Visit 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 Gender Identity Female 10/09/2022 9:08 AM CDT Sexual Orientation Choose not to disclose 2022 9:08 AM CDT documented as of this encounter Last Filed Vital Signs Vital Sign Reading Time Taken Comments Blood Pressure 107/63 08/28/2022 1:32 PM CDT Pulse 80 08/28/2022 1:32 PM CDT Temperature 36.2 ??C (97.1 ??F) 08/28/2022 1:32 PM CD T Respiratory Rate 18 08/28/2022 1:32 PM CDT Oxygen Saturation 91% 08/28/2022 1:32 PM CDT Inhaled Oxygen Concentration - - Weight 64.4 kg (142 lb) 08/28/2022 1:32 PM CDT Height 154.9 cm (5' 1 ) 08/28/2022 1:32 PM CDT Body Mass Index 26.83 08/28/2022 1:32 PM CDT documented in this encounter Miscellaneous Notes * Quality Review - Jeaneth Drew - 08/28/2022 1:25 PM CDT M1033 - Risk for Hospitalization 2-Unintentional weight loss;5-Decline in mental/emotional/behavioral status;6-Hx of difficulty complying with any medical instructions;7-Taking 5+ meds 2-Unintentional weight loss;5-Decline in mental/emotional/behavioral status;6-Hx of difficulty complying with any medical instructions;7-Taking 5+ meds;9-Other risk Add Response 9. Other risks may be selected for other characteristics not already covered in 1-8 including __multiple comorbidities (i.e. slower movement during sit to stand and walking-increased TUG) and item intent is to identify patient characteristics that may indicate the patient is at risk for hospitalization. 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 She was admitted to [facility] from 08/12/2022 - 08/23/2022 (11 days). PMH: Aortic aneurysm, PACEMAKER, Arthritis, Atrial fibrillation; outcome: heart ablation, CHF, Depression, Diverticulosis, Dysphagia, GERD, Depression, with Anxiety, DJD, HLD, HTN, LA 2015, sleep apnea, vertigo Home setup/current situation: patient currently demonstrates right sided weakness, gait, and balance deficits. Generally requires assistance with ADLs, IADLs, and mobility. The patient has 4 adult daughters who rotate staying with patient over night so someone is availabe to care for / assist the patient 14/10. Patient also has two adult sons, but not involved in patient care. Cat in home. Patient's front entrance has 2 steps without handrail, 3 steps with 1 handrail back entrance which patient uses. Has basement but not using basement steps. DME: toilet seat with arm rests, shower bench, front wheeled walker, gait belt, transport chair. PLOF: fully independent, lived alone prior to CVA, involved in community activities. TU seconds with front wheeled walker, gait belt donned, min A for safety. Plan: PT 2w6 for LE strengthening, gait training, stair navigation training, balance training, transfer training, home safety training, fall risk reduction training, patient education. * Home Health Plan for Next Visit - Watson Sanchez, PT - 08/28/2022 1:25 PM CDT Reason for today's visit: homecare PT start of care. Discussed plan of care interventions with the patient, who remains agreeable. Discharge planning: ongoing Plan for next visit: HEP, therapeutic exercise, balance, gait, transfer, stair training as appicable. documented in this encounter Plan of Treatment Not on file documented as of this encounter Visit Diagnoses Not on filedocumented in this encounter Home Health Visit - Care Plan Visit Details Visit Type -PT OASIS Start o f Care Discipline -Physical Therapy Problems Problem Description Start Date Status Goals Interventions Homebound Status Disciplines: Skilled Disciplines Patient's homebound status 08/28/2022 Active 1 goal linked to scheduled/docume nted intervention 1 goal intervention scheduled/documen vickie in this visit Monitor patient's vital signs every home health visit Disciplines: SN, PT, OT, BUFFET ATTENDANT, TUGBOAT CAPTAIN, Skilled Disciplines Monitor patient's vital signs [...] visit during episode of care Description: Home gypsum roofer to measure vital signs during every home [...] clear understanding, provides safe verbalization/return demonstration of instruction Assess safety Description: Assess patient safety Problem:Safety concerns Goal:Demonstrate use of safety precautions Completed Instruct on the prevention of deep vein thrombosis Description: Instruct patient/caregiver on signs and symptoms, preventative measures related to DVT, and provide ongoing home support based on patient needs Problem:DVT Prevention and Management Goal:Demonstrate knowledge of anticoagulant therapy Completed educated to take blood thinners as prescribed, perform frequent mobility. patient verbalizes good understanding of instructions and provides safe verbalization/return demonstration of instructions. Instruct on pain management techniques Description: Instruct in pharmacologic and nonpharmacologic pain management techniques. Problem:Pain Goal:Report that pain has been reduced or controlled Completed Instructed patient to rest as needed, take pain medication as/if prescribed. Educated to contact MD office or nurse triage line in case of new or worsening pain. patient verbalizes good understanding of instructions and provides safe verbalization/return demonstration of instructions. Transfer training Description: Instruct patient/caregiver and perform transfer training. Problem:PT Impaired Functional Mobility/Balance Completed several repetitions of sit to stand transfer with cues and educated to scoot toward edge of seat, maintain wide base of support, pull feet back and lean foward prior to standing. Educated to push off with at least one hand rather than pull on walker with two hands. Good improvement s/p cues. Gait/Stair Training Description: Instruct patient/caregiver and perform gait/stair training. Problem:PT Impaired Functional Mobility/Balance Completed instructed to rest as needed, gradually increase walking program as tolerated and use assistive device and person assist for safety. patient verbalizes good understanding of instructions and provides safe verbalization/return demonstration of instructions. documented in this encounter Care Teams Liner Inserter Relationship Specialty Start Date End Date Jaleel Mcgovern MD PCP - General Family Practice 07/18/22 Reynaldo Flannery DO Consulting Physician Cardiology 09/26/17 Guanakito Holland MD Consulting Physician Cardiovascular Disease 07/29/18 documented as of this encounter
--- OUTSIDE RECORDS SUMMARY | 2024-04-11 06:36 | XMS_ITS | Encounter Summary ---
Author Organization [facility] Home Care Servic es Address [address] [place] [address] Phone Care Team Providers Care Predatory Hunter Name Role Phone Reynaldo Flannery DO Unavailable Guanakito Holland MD Unavailable [phone] Jaleel Mcgovern MD Primary Care Provider [phone] Reason for Visit * Reason Comments Weakness - Generalized * Auth/Cert (Routine) Specialty Diagnoses / Procedures Referred By Contac t Referred To Contact Referral ID Status Reason Start Date Expiration Date Visits Re quested Visits Authorized [id number] 1 1 Encounter Details Date Type Department Care Team (Late st Contact Info) Description 09/05/2022 10:30 AM CDT Home Care Visit [facility] Home Health [address] [address] [address] [place] [address] Lizbet Colbert PTA PT HOME VISIT Social [...] or relatives? 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 Gender Identity Female 10/09/2022 9:08 AM CDT Sexual Orientation Choose not to disclose 2022 9:08 AM CDT documented as of this encounter Last Filed Vital Signs Vital Sign Reading Time Taken Comments Blood Pressure 112/70 09/05/2022 10:37 AM CDT Pulse 72 09/05/2022 10:37 AM CDT Temperature 36.6 ??C (97.9 ??F) 09/05/2022 10:37 AM C DT Respiratory Rate 18 09/05/2022 10:37 AM CDT Oxygen Saturation 95% 09/05/2022 10:37 AM CDT Inhaled Oxygen Concentration - - Weight - - Height - - Body Mass Index - - documented in this encounter Miscellaneous Notes * Home Health Plan for Next Visit - Lizbet Colbert PTA - 09/05/2022 11:44 AM CDT Reason for today's visit strength, balance, transfers, gait and safety training. Discuss plan of care with pt and daughter who remain agreeable, Updated PT, Watson Discharge planning when goals are met, or [...] home health visit Disciplines: SN, PT, OT, SUPERINTENDENT GAS DISTRIBUTION, HOT POND OPERATOR, Skilled Disciplines Monitor patient's vital signs [...] visit during episode of care Description: Home radio equipment repairer to measure vital signs during every home [...] has been reduced or controlled Completed pt voiced no c/o pain, pt and family are knowledgeable of pharmacologic and nonpharmacologic pain management techniques. Transfer training Description: Instruct patient/caregiver and perform transfer training. Problem:PT Impaired Functional Mobility/Balance Completed Pt. instructed on sit to stand transfers from couch with use of bilateral UE assist with cga to sba. Pt. demoed fair technique and understanding to complete transfers safely with cue for right UE placement and push through it. Gait/Stair Training Description: Instruct patient/caregiver and perform gait/stair training. Problem:PT Impaired Functional Mobility/Balance Completed Pt. instructed on gait training outright t/o home for distance around 57' with cga. Pt completed gait training with forwared flexed posture from hips, decreased right toe off, foot clearance, step lenngth and heelstrike. Provided pt with verbal cues to improve technique with pt demonstrating adn voicing understanding of the instruction/cues provided. Balance Training/Activities Description: Instruct patient/caregiver and perform balance training activities. Problem:PT Impaired Functional Mobility/Balance Completed Pt educated on balance activites standing with emphasis on maintaing core cotraction and posture. Pt completed stand with single UE support while performing alternating heel touches, forward and lateral steps, alternating foot placement on 6 inch cone, and stance with le on the cone all with min assist. performed side stepping with bilateral UE support and min to cga, retro steps with bilateral UE support and min assist, and sidestep followed with a squat with min assist. pt noted to have decreased core stability with all balance ex and decreased right stance stability. with cues for posture and core contractions this improved some. Pt completed stand with bilateral UE support with min to mod assist while standing wtih decreased tj with eyes closed and standing in a staggered stance with each leg infront with eyes open and closed. Therapeutic Exercise Description: Perform therapeutic exercise, progressing as tolerated. Problem:PT Impaired Functional Mobility/Balance Pt. instructed in seated therex 10 reps x 1 set for bilateral hip flex, abd, knee ext, and ankle df/pf with use of red theraband. Pt. demonstrated understanding of the exercises and instruction provided with verbal and visual cues provided and good follow through noted. documented in this encounter Care Teams Predatory Hunter Relationship Specialty Start Date End Date Jaleel Mcgovern MD PCP - General Family Practice 07/18/22 Reynaldo Flannery DO Consulting Physician Cardiology 09/26/17 Guanakito Holland MD Consulting Physician Cardiovascular Disease 07/29/18 documented as of this encounter
--- OUTSIDE RECORDS SUMMARY | 2024-04-11 06:36 | XMS_ITS | Encounter Summary ---
Author Organization [facility] Address [address] [place] [address] Phone Care Team Providers Care Tumbler Machine Operator Helper Name Role Phone Reynaldo Flannery DO Unavailable Guanakito Holland MD Unavailable [phone] Jaleel Mcgovern MD Primary Care Provider [phone] Encounter Details Date Type Department Care Team (Late st Contact Info) Description 09/03/2022 Orders Only [facility] Cardiology [address] [facility] [address] [place] [address] Karen Slaughter NP [address] [place] [address] Cerebrovascular accident (CVA), unspecified mechanism (HCC) (Primary Dx) Social History Tobacco Use Types Packs/Day Years [...] or relatives? 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 Gender Identity Female 10/09/2022 9:08 AM CDT Sexual Orientation Choose not to disclose 2022 9:08 AM CDT documented as of this encounter Plan of Treatment Not on file documented as of this encounter Visit Diagnoses Diagnosis Cerebrovascular accident (CVA), unspecified mechanism (HCC)- Primary documented in this encounter Care Teams Tumbler Machine Operator Helper Relationship Specialty Start Date End Date Jaleel Mcgovern MD PCP - General Family Practice 07/18/22 Reynaldo Flannery DO Consulting Physician Cardiology 09/26/17 Guanakito Holland MD Consulting Physician Cardiovascular Disease 07/29/18 documented as of this encounter
--- OUTSIDE RECORDS SUMMARY | 2024-04-11 06:36 | XMS_ITS | Encounter Summary ---
Author Organization [facility] Home Care Servic es Address [address] [place] [address] Phone Care Team Providers Care Corporate Associate Name Role Phone Reynaldo Flannery DO Unavailable [phone] Guanakito Holland MD Unavailable [phone] Jaleel Mcgovern MD Primary Care Provider [phone] Encounter Details Date Type Department Care Team (Late st Contact Info) Description 08/28/2022 Plan of Care Documentation [facility] Home Health - [address] [address] [address] [place] [address] Social History Tobacco Use Types Packs/Day Years [...] or relatives? Once a week 08/12/2022 Attends [employer] Services Not on file 08/12 Active Member [...] Patient Health Questionnaire-2 Score 0 08/23/2022 [facility] - Occupational Stress Questionnaire Answer Date [...] on file Legal Sex Female 11:18 AM BENCH WORKER HOLLOW HANDLE Gender Identity Female 10/09/2022 9:08 AM CDT Sexual Orientation Choose not to disclose 2022 9:08 AM CDT documented as of this encounter Miscellaneous Notes * Home Health Plan of Care Certification Statement - Jesus Tomlinson - 09/05/2022 5:02 PM CDT I certify that the above stated patient is homebound and has a need for intermittent prison, physical therapy and/or speech or occupational therapy services for their current diagnosis(es) as outlined in the initial plan of care. The patient is under my care, and I have authorized serviceson this plan of care and will periodically review the plan. The patient had a [id number] encounter with Opal Mace MD on 08/22/2022 and the encounter was related to the primary reason for home health care. documented in this encounter Plan of Treatment Not on file documented as of this encounter Visit Diagnoses Not on filedocumented in this encounter Care Teams Corporate Associate Relationship Specialty Start Date End Date Jaleel Mcgovern MD PCP - General Family Practice 07/18/22 Reynaldo Flannery DO Consulting Physician Cardiology 09/26/17 Guanakito Holland MD Consulting Physician Cardiovascular Disease 07/29/18 documented as of this encounter
--- OUTSIDE RECORDS SUMMARY | 2024-04-11 06:36 | XMS_ITS | Encounter Summary ---
Author Organization [facility] Address [address] [place] [address] Phone Care Team Providers Care P D Driver Name Role Phone Ronny Flanneryyenny Owenil DO Unavailable [phone] Guanakito Holland MD Unavailable [phone] Jaleel Mcgovern MD Primary Care Provider [phone] Reason for Referral * Consultation (Routine) - Closed Specialty Diagnoses / Procedures Referred By Contac t Referred To Contact Neurology Diagnoses Cerebrovascular accident (CVA), unspecified mechanism (HCC) Raudel Hardwick, PRECIOUS Phone: tel: fax: [facility] Stroke [address] [place] [address] Phone: tel: fax: Referral ID Status Reason Start Date Expiration Date V isits Requested Visits Authorized [id number] Closed Specialty Services Required 09/03/2022 10/03/2023 1 1 Question Answer Please select the performing region: [facility] (All Locations) [167] # of visits: 1 Comments Please schedule for Post-stroke follow-up with Dr. Zapien, Dr. Curran, or Dr. Hawkins. Encounter Details Date Type Department Care Team (Late st Contact Info) Description 09/03/2022 Orders Only [facility] Cardiology [address] [facility] Medical Office [address] [place] [address] Raudel Hardwick NP [address] [facility] [address] [place] [address] Cerebrovascular accident (CVA), unspecified mechanism (HCC) (Primary [...] Recorded Patient Health Questionnaire-2 Score 0 08/23/2022 [facility] of Occupat ional Health - Occupational Stress [...] on file Legal Sex Female 11:18 AM VETERANS' COORDINATOR Gender Identity Female 10/09/2022 9:08 AM CDT Sexual Orientation Choose not to disclose 2022 9:08 AM CDT documented as of this encounter Plan of Treatment Scheduled Referrals Name Type Priority Associated Diagnoses Orde r Schedule Ambulatory referral to Neurology Outpatient Referral Routine Cerebrovascular accident (CVA), unspecified mechanism (HCC) Expected: 09/17/2022 (Approximate), Expires: 09/04/2023 documented as of this encounter Visit Diagnoses Diagnosis Cerebrovascular accident (CVA), unspecified mechanism (HCC)- Primary documented in this encounter Care Teams P D Driver Relationship Specialty Start Date End Date Jaleel Mcgovern MD PCP - General Family Practice 07/18/22 Reynaldo Flannery DO Consulting Physician Cardiology 09/26/17 Guanakito Holland MD Consulting Physician Cardiovascular Disease 07/29/18 documented as of this encounter
--- OUTSIDE RECORDS SUMMARY | 2024-04-11 06:36 | XMS_ITS | Encounter Summary ---
Author Organization [facility] Address [address] [place] [address] Phone Care Team Providers Care Transformer Builder Name Role Phone Reynaldo Flannery DO Unavailable [phone] Guanakito Holland MD Unavailable [phone] Jaleel Mcgovern MD Primary Care Provider [phone] Encounter Details Date Type Department Care Team (Late st Contact Info) Description 08/29/2022 1:30 PM CDT Office Visit [facility] Cardiology [address] [facility] Advanced [facility] 8th [place] [address] [place] [address] Raudel Hardwick, PRECIOUS [address] [facility] [address] [place] [address] HFrEF (heart failure with reduced ejection fraction) (CMS/HCC) (HCC) (Primary Dx); Primary hypertension; Hyperlipidemia, unspecified hyperlipidemia type; 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); Paroxysmal atrial fibrillation (CMS/HCC) (HCC); Abdominal aortic aneurysm (AAA) without rupture, unspecified part (HCC) Social History Tobacco Use Types Packs/Day [...] [facility] of Occupat ional Health - Occupational [...] on file 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 Gender Identity Female 10/09/2022 9:08 AM CDT Sexual Orientation Choose not to disclose 2022 9:08 AM CDT documented as of this encounter Last Filed Vital Signs Vital Sign Reading Time Taken Comments Blood Pressure 115/65 08/29/2022 1:49 PM CDT Pulse 75 08/29/2022 1:49 PM CDT Temperature - - Respiratory Rate - - Oxygen Saturation 98% 08/29/2022 1:49 PM CDT Inhaled Oxygen Concentration - - Weight 63.7 kg (140 lb 6.4 oz) 08/29/2022 1:49 P M CDT Height 154.9 cm (5' 1 ) 08/29/2022 1:49 PM CDT Body Mass Index 26.53 08/29/2022 1:49 PM CDT documented in this encounter Patient Instructions * Patient Instructions* Raudel Hardwick NP - 08/29/2022 1:30 PM CDT No changes today. Follow up with Dr. Hernandez in September. For any questions or concerns please call . documented in this encounter Progress Notes * Raudel Hradwick NP - 08/29/2022 1:30 PM CDT Cardiology Return Office Visit Patient Name: Abena Giron : : 1940 Date of Service: 08/29/2022 Ref[facility] DIAGNOSIS LIST: Atrial fibrillation S/p AV node ablation in 2018 HFrEF 40% Dec 2019 -> 20% on 08/05/22 CAD MS s/p stent to mid LCx in 2013 SSS S/p Biotronik, implanted 07/30/18 with RA lead revision on 09/14/18 done at [facility] HTN HLD AAA Several bilateral femoral artery stenosis, incidental finding Left subclavian occlusion, incidental finding 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 female who presents today at the [facility] in [place] for follow-up on the above cardiac conditions. She follows with Dr. Hernandez at [facility] [place] [facility]. Last seen by Cardiology on 08/08/[address] [facility] on 08/03/22-08/12/22 for acute L MCA occlusion s/p TNK and MT. Cardiology consulted regarding newly reduced EF on TTE noting EF of 20% (down from 40%). Unclear etiology as it may be secondary to chronic RV pacing vs related to PVC burden vs underlying CAD. Cardiology recommended increasing her Losartan, changing metoprolol tartrate to succinate and starting SGLT2. She was then admitted to [facility] on 08/12/22-08/23/22 for rehab and discharged home with home health therapy. While in rehab her losartan was discontinued due to hypotension. Presents today accompanied by her two daughters. States that she is feeling well. Denies any shortness of breath but does endorse to becoming fatigued. States she is staying active with PT and OT. Reports he is actually losing weight with all activity bad food while in the hospital. She is able to ambulate with walker and assistance. She denies any chest pain, shortness of breath, dizziness/LH, palpitations, syncope/pre-syncope, orthopnea, PND or edema. Kept her active in PT and OT. Follows with local dipper operator, Dr. Hernandez, and wishes to continue close follow-up with him formanagement of above cardiac conditions. MEDICATIONS: Current Outpatient Medications: apixaban (ELIQUIS) 5 mg tablet aspirin 81 mg chewable tablet dapagliflozin (FARXIGA) 10 mg tablet fexofenadine (WALESKA) 180 mg tablet fluticasone propionate (FLONASE) 50 mcg/actuation nasal spray furosemide (LASIX) 40 mg tablet metoprolol XL (TOPROL-XL) 25 mg extended release tablet rosuvastatin (CRESTOR) 10 mg tablet spironolactone (ALDACTONE) 25 mg tablet Ventolin HFA 90 mcg/actuation inhaler cholecalciferol (VITAMIN D-3) 2,000 unit tablet cyanocobalamin (Vitamin B-12) 100 mcg tablet PHYSICAL EXAM: Vitals: 08/29/22 1349 BP: 115/65 BP Location: Right arm Patient Position: Sitting Pulse: 75 SpO2: 98% Weight: 63.7 kg (140 lb 6.4 oz) Height: 154.9 cm (5' 1 ) GENERAL: Alert and oriented, well-nourished, in no acute distress. Dysarthiric. HEENT: Mucous membranes are moist. Sclerae white. No thyromegaly or lymphadenopathy. LUNGS: Normal effort and respiratory rate. Lungs clear to auscultation bilaterally. HEART: Normal rate, regular rhythm. No murmurs, rubs, or gallops. ABDOMEN: Soft, non-tender, and non-distended. No hepatosplenomegaly. NEUROLOGIC/PSYCH: Alert and oriented x4. Calm and appropriate affect. VASCULAR: Extremities warm and well-perfused. All pulses intact. No edema. No carotid bruit. No JVD. SKIN: No cyanosis, pallor, clubbing, or rashes. DIAGNOSTIC TESTING: LABS: Lab Results Component Value Date GLUCOSE 120 08/19/2022 CALCIUM 9.6 08/19/2022 SODIUM 142 08/19/2022 POTASSIUM 3.9 08/19/2022 CO2 23 08/19/2022 CHLORIDE 106 08/19/2022 BUNSER 25 08/19/2022 CREATININE 0.77 08/19/2022 Chemistry Lab Results Component Value Date SODIUM 142 08/19/2022 POTASSIUM 3.9 08/19/2022 CHLORIDE 106 08/19/2022 CO2 23 08/19/2022 ANIONGAP 13 08/19/2022 BUNSER 25 08/19/2022 CREATININE 0.77 08/19/2022 GLUCOSE 120 08/19/2022 CALCIUM 9.6 08/19/2022 BILITOT 0.7 08/19/2022 PROTEIN 6.9 02/15/2019 ALBUMIN 3.9 08/19/2022 GFRNAA 77 08/19/2022 ALKPHOS 39 (L) 08/19/2022 AST 27 08/19/2022 ALT 16 08/19/2022 PHOS 3.8 08/03/2022 MAGNESIUM 2.2 08/11/2022 Lab Results Component Value Date CHOL 146 08/03/2022 Lab Results Component Value Date HDL 33 (L) 08/03/2022 Lab Results Component Value Date LDLCALC 98 08/03/2022 LDL 197 (H) 12/17/2018 SCRLDL 137 (A) 10/09/2018 Lab Results Component Value Date TRIG 77 08/03/2022 Lab Results Component Value Date WBC 9.6 08/19/2022 HGB 12.7 08/19/2022 HCT 40.4 08/19/2022 MCV 97.1 (H) 08/19/2022 LABPLAT 372 08/19/2022 Lab Results Component Value Date HGBA1C 6.0 (H) 08/03/2022 Lab Results Component Value Date NPROBNP 2,143 (H) 01/06/2020 Lab Results Component Value Date TROPTHS 18 (H) 08/03/2022 ECHO: 08/05/22 SUMMARY: Frequent PVCs. Normal LV volume, mass. Severe global LV systolic dysfunction (LVEF 20%). Dyssynchronous LV contraction c/w RV pacing. Indeterminate diastolic function. Normal AV. Mild MR. Normal LA size. Normal RV size with mild hypokinesis. Mild TR. PASP 45 mmHg. Dilated IVC c/w elevated RAP. Wire in RA/RV. Abdominal aortic atherosclerosis. No definite LV thrombus. No images for comparison. EK08/03/22 Ventricular-paced rhythm Abnormal ECG No previous ECGs available ASSESSMENT & PLAN: Problem List Items Addressed This Visit Cardiac and Vasculature Hypertension (Chronic) Blood pressure appropriately controlled. Losartan was recently stopped due to hypotension. Continue metoprolol XL and spironolactone. Hyperlipidemia (Chronic) On Crestor 10 mg per reports history of intolerance to statin therapy. Her LDL goal is less than 70. Will discuss local dipper operator about statin therapy and possible PCSK9 inhibitor. Coronary artery disease involving oneida coronary artery of oneida heart Denies any chest pain or anginal equivalent. Recent drop in her LVEF to 20% from 40% with unclear etiology. Continue aspirin, metoprolol and Crestor. Would like to discuss with her local dipper operator about additional ischemic workup as she plans to follow up locally long-term. Paroxysmal atrial fibrillation (CMS/HCC) (HCC) In normal rhythm today. Continue metoprolol and Eliquis. Abdominal aortic aneurysm (AAA) without rupture (HCC) Maintain good blood pressure control. HFrEF (heart failure with reduced ejection fraction) (CMS/HCC) (HCC) - Primary Echocardiogram in July of 2022 noted patient [...] fraction. Per patient her plan is to continueclose follow-up with local dipper operator and therefore would like to discuss with him at upcoming visit September. Continue Lasix 40 mg daily for volume management. We will plan to see her back on as needed basis as she will follow up with her local dipper operator. However we would be happy to see her sooner if needed. Raudel Hardwick NP Cosigned by Mukund Chavarria MD at 09/04/2022 11:46 AM CDT documented in this encounter Miscellaneous Notes * Assessment & Plan Note - Raudel Hardwick NP - 08/29/2022 9:31 PM CDT Associated Problem(s): HFrEF (heart failure with reduced ejection fraction) (CMS/HCC) (HCC) Echocardiogram in July of 2022 noted patient [...] fraction. Per patient her plan is to continueclose follow-up with local dipper operator and therefore would like to discuss with him at upcoming visit September. Continue Lasix 40 mg daily for volume management. * Assessment & Plan Note - Raudel Hardwick NP - 08/29/2022 9:27 PM CDT Associated Problem(s): Cardiac pacemaker in situ * Assessment & Plan Note - Raudel Hardwick NP - 08/29/2022 9:26 PM CDT Associated Problem(s): Abdominal aortic aneurysm (AAA) without rupture (HCC) Maintain good blood pressure control. * Assessment & Plan Note - Raudel Hardwick NP - 08/29/2022 9:26 PM CDT Associated Problem(s): Paroxysmal atrial fibrillation (CMS/HCC) (HCC) (Resolved 02/13/2024) In normal rhythm today. Continue metoprolol and Eliquis. * Assessment & Plan Note - Raudel Hardwick NP - 08/29/2022 9:25 PM CDT Associated Problem(s): Coronary artery disease involving oneida coronary artery of oneida heart Denies any chest pain or anginal equivalent. Recent drop in her LVEF to 20% from 40% with unclear etiology. Continue aspirin, metoprolol and Crestor. Would like to discuss with her local dipper operator about additional ischemic workup as she plans to follow up locally long-term. * Assessment & Plan Note - Raudel Hardwick NP - 08/29/2022 9:24 PM CDT Associated Problem(s): Hyperlipidemia On Crestor 10 mg per reports history of intolerance to statin therapy. Her LDL goal is less than 70. Will discuss local dipper operator about statin therapy and possible PCSK9 inhibitor. * Assessment & Plan Note - Raudel Hardwick NP - 08/29/2022 9:22 PM CDT Associated Problem(s): Hypertension Blood pressure appropriately controlled. Losartan was recently stopped due to hypotension. Continue metoprolol XL and spironolactone. 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 Medication Sig Dispense Quantity Refills Last Filled Start D ate End Date Ventolin HFA 90 mcg/actuation inhaler 07/03/2022 added in this encounter Care Teams Transformer Builder Relationship Specialty Start Date End Date Jaleel Mcgovern MD PCP - General Family Practice 07/18/22 Reynaldo Flannery DO Consulting Physician Cardiology 09/26/17 Guanakito Holland MD Consulting Physician Cardiovascular Disease 07/29/18 documented as of this encounter
--- OUTSIDE RECORDS SUMMARY | 2024-04-11 06:36 | XMS_ITS | Encounter Summary ---
Author Organization [facility] es Address [address] [place] [address] Phone Care Team Providers Care Drivability Technician Name Role Phone Reynaldo Flannery DO Unavailable [phone] Guanakito Holland MD Unavailable [phone] Jaleel Mcgovern MD Primary Care Provider [phone] Reason for Visit * Reason Comments Extremity Weakness * Auth/Cert (Routine) Specialty Diagnoses / Procedures Referred By Contac t Referred To Contact Referral ID Status Reason Start Date Expiration Date Visits Re quested Visits Authorized [id number] 1 1 Encounter Details Date Type Department Care Team (Late st Contact Info) Description 09/09/2022 9:00 AM CDT Home Care Visit [facility] Home Health [address] [address] [address] [place] [address] Keisha Strauss COTA OT HOME VISIT Social [...] or relatives? Once a week 08/12/2022 Attends Restorationist Services Not on file 08/12 Active Member [...] Recorded Patient Health Questionnaire-2 Score 0 08/23/2022 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 Gender Identity Female 10/09/2022 9:08 AM CDT Sexual Orientation Choose not to disclose 2022 9:08 AM CDT documented as of this encounter Last Filed Vital Signs Vital Sign Reading Time Taken Comments Blood Pressure 102/70 09/09/2022 9:12 AM CDT Pulse 61 09/09/2022 9:12 AM CDT Temperature 35.9 ??C (96.6 ??F) 09/09/2022 9:12 AM CD T Respiratory Rate 18 09/09/2022 9:12 AM CDT Oxygen Saturation 98% 09/09/2022 9:12 AM CDT Inhaled Oxygen Concentration - - Weight - - Height - - Body Mass Index - - documented in this encounter Miscellaneous Notes * Home Health Plan for Next Visit - Keisha Strauss COTA - 09/09/2022 9:00 AM CDT Reason for today's visit: LBdressing strategies, AE training, fall prevention, UE HEP/hand exerciseto support ADL function. Discuss plan of care/OT goals with pt and dtr. Discharge planning: to self with family assist when OT goals have been met or max potential has been reached. Plan for next visit: UE HEP, FMC, and bathroom transfers. Pt and dtr voiced agreement. documented in this encounter Plan of Treatment [...] home health visit Disciplines: SN, PT, OT, CIGARETTE FILTER INSPECTOR, PLC PROGRAMMER, Skilled Disciplines Monitor patient's vital signs every [...] visit during episode of care Description: Home orthotic/prosthetic clinician to measure vital signs during every [...] to include BUE AROM x 10 reps, SROM shoulder and elbow flexion/ext with 2-3 sec hold at end of range, shoulder shrugs, scapular retractions, active shoulder composite rotations, horizontal add/abd and hand exercise with focus on improved flexibility for daily occupation. Pt ed in AROM hand HEP; slow/gentle dip/pip/mcp flexion/ext/add/abd/s erial opposition to improve flexibility for ADLs and FMC for daily occupations with good understanding and F+ return demo. ADL Instruction Description: Instruct patient/caregiver for improved ADL performance. Problem:OT Impaired ADLs Completed Ed patient/caregiver in strategies for improved ADL performance. Ed pt in use of AE/dressing stick and side bending to pull up underwear/pants to hips to avoid garment falling to floor with standing aspect. Pt and dtr voiced understanding and pt displayed good return demo, SBA w/LB dressing. Adaptive Equipment/DME Education Description: Recommend and assist with obtaining assistive devices/DME. Problem:OT Impaired ADLs Completed Ed pt in use of dressing stick for retrieval of items from floor level. Recommendation for pt to obtain [facility] to include how to obtain. Pt and dtr voiced understanding. documented in this encounter Care Teams Drivability Technician Relationship Specialty Start Date End Date Jaleel Mcgovern MD PCP - General Family Practice 07/18/22 Reynaldo Flannery DO Consulting Physician Cardiology 09/26/17 Guanakito Holland MD Consulting Physician Cardiovascular Disease 07/29/18 documented as of this encounter
--- OUTSIDE RECORDS SUMMARY | 2024-04-11 06:36 | XMS_ITS | Encounter Summary ---
Author Organization [facility] Address [address] [place] [address] Phone Care Team Providers Care Economics Lecturer Name Role Phone Reynaldo Flannery DO Unavailable [phone] Guanakito Holland MD Unavailable [phone] Jaleel Mcgovern MD Primary Care Provider [phone] Encounter Details Date Type Department Care Team (Late st Contact Info) Description 09/02/2022 Telephone [facility] Cardiology [address] [place] [address] [place] [address] Raudel Hardwick, PRECIOUS [address] [place] [address] Social History Tobacco Use Types Packs/Day Years [...] Recorded Patient Health Questionnaire-2 Score 0 08/23/2022 [facility] of Occupat ional Health - Occupational [...] on file 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 I spoke with pt's other dtr who reports they are unsure whether pt wants to keep coming back to [place] for appts. She will discuss with Chelle and pt and call back later today. Referral recreated for [facility] neurology. * Telephone Encounter - Karen Slaughter NP - 09/02/2022 2:39 PM CDT [facility] or [facility] Neurology would be fine-- wherever she can get in and insurance covers. Thanks! * Telephone Encounter - Brook Jain RN - 09/02/2022 2:30 PM CDT Per information in chart, referral was created ib 08/[address] Melendez for pt to be seen by neurology, [facility] d[facility], pt s/p CVA, referral sent to [facility]. I spoke with Layla at [facility] scheduling who reports that d/t volume all new pt appts at [facility] have been put on hold, will resume scheduling newpt appts at some undetermined time in the future. Layla reports that pt will need to f/u with PMD or seek urgent care in ER if needed in the interim. Do you want me to try [facility] cardiology or [facility]? LMOR for pt/dtr Laura to call. * Telephone Encounter - Sylvia Shelton - 09/02/2022 2:00 PM CDT Ronen Pt was seen for a Hospital Follow up on DOS 08/29/22. Pt's dtr, Chelle, stating she was given a number to call Neurology Dept to schedule an appt. Neurology instructed her to call and request for thereferral and med recs to be sent to their Dept for review and clarification of reason needing to beseen. Pls return Chelle's call to discuss. documented in this encounter Plan of Treatment Not on file documented as of this encounter Visit Diagnoses Not on filedocumented in this encounter Care Teams Economics Lecturer Relationship Specialty Start Date End Date Jaleel Mcgovern MD PCP - General Family Practice 07/18/22 Reynaldo Flannery DO Consulting Physician Cardiology 09/26/17 Guanakito Holland MD Consulting Physician Cardiovascular Disease 07/29/18 documented as of this encounter
--- OUTSIDE RECORDS SUMMARY | 2024-04-11 06:36 | XMS_ITS | Encounter Summary ---
Author Organization [facility] Home Care [facility] es Address [address] [place] [address] Phone Care Team Providers Care Sports Book Board Attendant Name Role Phone Reynaldo Flannery DO Unavailable [phone] Guanakito Holland MD Unavailable [phone] Jaleel Mcgovern MD Primary Care Provider [phone] Reason for Visit * Auth/Cert (Routine) Specialty Diagnoses / Procedures Referred By Contac t Referred To Contact Referral ID Status Reason Start Date Expiration Date Visits Re quested Visits Authorized [id number] 1 1 Encounter Details Date Type Department Care Team (Latest Contact Info) Description 08/30/2022 9:00 AM CDT Home Care Visit [facility] Home Health [address] [address] [address] [place] [address] Morena Holder, OT OT INITIAL EVALUATION Social History Tobacco Use Types Packs/Day Years [...] or relatives? 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 Gender Identity Female 10/09/2022 9:08 AM CDT Sexual Orientation Choose not to disclose 2022 9:08 AM CDT documented as of this encounter Last Filed Vital Signs Vital Sign Reading Time Taken Comments Blood Pressure 103/70 08/30/2022 9:08 AM CDT Pulse 72 08/30/2022 9:08 AM CDT Temperature 36.2 ??C (97.1 ??F) 08/30/2022 9:08 AM CD T Respiratory Rate 18 08/30/2022 9:08 AM CDT Oxygen Saturation 98% 08/30/2022 9:08 AM CDT Inhaled Oxygen Concentration - - Weight - - Height - - Body Mass Index - - documented in this encounter Miscellaneous Notes * Home Health Visit Narrative - Morena Holder, OT - 08/30/2022 9:48 AM CDT Pt. 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 She was admitted to [facility] from 08/12/2022 - 08/23/2022 (11 days). Pt. lives in a 1 story house and her daughters are rotating to stay the night with her. Pt. has a supportive family who assist in her care. PMH: Aortic aneurysm, PACEMAKER, Arthritis, Atrial fibrillation; outcome: heart ablation, CHF, Depression, Diverticulosis, Dysphagia, GERD, Depression, with Anxiety, DJD, HLD, HTN, [place] 2015, sleep apnea, vertigo PLOF: Pt. indep for ADL's and most IADL's. Pt. did not ambulate with a device. Pt. indep for transfers. Pt. indep for most ADL's. Pt dep for most IADL's. Pt. ambulated with 2ww. Pt. indep to cga for transfers. Plan to see pt. 2 times a week for 5 weeks to address ADL's, IADL's, energy conservation, transfer training, balance, and HEP. Pt.'s goals are to get back to where she was documented in this encounter Plan of Treatment Not on file documented as of this encounter Visit Diagnoses Not on filedocumented in this encounter Home Health Visit - Care Plan Visit Details Visit Type -OT Initial Evalu ation Discipline -Occupational Therapy Problems Problem Description Start Date Status Goals Interve ntions Homebound Status Disciplines: Skilled Disciplines Patient's homebound status 08/28/2022 Active 1 goal linked to scheduled/documen vickie intervention 1 goal intervention scheduled/documen vickie in this visit Monitor patient's vital signs every home health visit Disciplines: SN, PT, OT, COMMUTATOR TESTER, IMMIGRATION ATTORNEY, Skilled Disciplines Monitor patient's vital signs every [...] visit during episode of care Description: Home tiger machine operator to measure vital signs during [...] concerns Goal:Demonstrate use of safety precautions Completed Educated pt. on how sitting for dressing tasks can decrease the chances of a fall. Pt. demonstrated good understanding of information. Assess safety Description: Assess patient safety Problem:Safety concerns Goal:Demonstrate use of safety precautions Scheduled Instruct on pain management techniques Description: Instruct in pharmacologic and nonpharmacologic pain management techniques. Problem:Pain Goal:Report that pain has been reduced or controlled Scheduled Energy Conservation Education Description: Instruct patient/caregiver in techniques for improved activity tolerance Problem:OT Activity Tolerance/Energy Conservation Completed Educated pt. on how listening to your body and not doing to much at one time. Pt. demonstrated good understanding of information Transfer Training Description: Instruct patient/caregiver and perform transfer training. Problem:OT Impaired Functional Mobility/Balance Completed Educated pt. on proper body and walker postioning for sit to stand, toilet, shower, and bed transfers. Pt. demonstrated with min cues and good understanding of information documented in this encounter Care Teams Sports Book Board Attendant Relationship Specialty Start Date End Date Jaleel Mcgovern MD PCP - General Family Practice 07/18/22 Reynaldo Flannery DO Consulting Physician Cardiology 09/26/17 Guanakito Holland MD Consulting Physician Cardiovascular Disease 07/29/18 documented as of this encounter
--- OUTSIDE RECORDS SUMMARY | 2024-04-11 06:36 | XMS_ITS | Encounter Summary ---
Author Organization [facility] Home Care Servic es Address [address] [place] [address] Phone Care Team Providers Care Carpet Floor Layer Apprentice Name Role Phone Reynaldo Flannery DO Unavailable [phone] Guanakito Holland MD Unavailable [phone] Jaleel Mcgovern MD Primary Care Provider [phone] Reason for Visit * Auth/Cert (Routine) Specialty Diagnoses / Procedures Referred By Contac t Referred To Contact Referral ID Status Reason Start Date Expiration Date Visits Re quested Visits Authorized [id number] 1 1 Encounter Details Date Type Department Care Team (Late st Contact Info) Description 09/05/2022 Home Care Visit [facility] Home Health [facility] [address] [place] [address] Morena Holder, OT TELEPHONE ENCOUNTER Social History [...] or relatives? 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
--- OUTSIDE RECORDS SUMMARY | 2024-04-11 06:36 | XMS_ITS | Encounter Summary ---
Author Organization [facility] Home Care [facility] Address [address] [place] [address] Phone Care Team Providers Care Vp Design Name Role Phone Reynaldo Flannery DO Unavailable [phone] Guanakito Holland MD Unavailable [phone] Jaleel Mcgovern MD Primary Care Provider [phone] Reason for Visit * Auth/Cert (Routine) Specialty Diagnoses / Procedures Referred By Contac t Referred To Contact Referral ID Status Reason Start Date Expiration Date Visits Re quested Visits Authorized [id number] 1 1 Encounter Details Date Type Department Care Team (Latest Contact Info) Description 09/05/2022 3:00 PM CDT Home Care Visit [facility] Home Health [address] [address] [address] [place] [address] Litzy Loya, TUFTING CREELER TUFTING CREELER INITIAL EVALUATION Social History Tobacco Use Types [...] Recorded Patient Health Questionnaire-2 Score 0 08/23/2022 [facility] of Occupat ional Health - [...] on file 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 Gender Identity Female 10/09/2022 9:08 AM CDT Sexual Orientation Choose not to disclose 2022 9:08 AM CDT documented as of this encounter Last Filed Vital Signs Vital Sign Reading Time Taken Comments Blood Pressure 118/74 09/05/2022 3:12 PM CDT Pulse 60 09/05/2022 3:12 PM CDT Temperature 35.9 ??C (96.6 ??F) 09/05/2022 3:12 PM CD T Respiratory Rate 18 09/05/2022 3:12 PM CDT Oxygen Saturation 99% 09/05/2022 3:12 PM CDT Inhaled Oxygen Concentration - - Weight - - Height - - Body Mass Index - - documented in this encounter Miscellaneous Notes * Home Health Visit Narrative - Litzy Zaragoza SLP - 09/05/2022 3:28 PM CDT Initial TUFTING CREELER evaluation of communication and swallowing abilities. Patient will benefit from furtherskilled services for intelligibility and swallowing abilities including therapuetic exercise, education, and HEP development to decrease risk of aspiration and aspiration pneumonia and to improve patient's ability to communicate functional information. * Home Health Plan for Next Visit - Litzy Zaragoza SLP - 09/05/2022 3:27 PM CDT Reason for today's visit: initial TUFTING CREELER evaluation of speech and swallowing ability Discuss plan of care with patient and patient caregiver. Discharge planning: DC when goals are met or max potential is reached Plan for next visit: therex, education, HEP development documented in this encounter Plan of Treatment Not on file documented as of this encounter Visit Diagnoses Not on filedocumented in this encounter Home Health Visit - Care Plan Visit Details Visit Type -TUFTING CREELER Initial Eval uation Discipline -Speech Language Pathology Problems Problem Description Start Date Status Goals Interve ntions Homebound Status Disciplines: Skilled Disciplines Patient's homebound status 08/28/2022 Active 1 goal linked to scheduled/documen vickie intervention 1 goal intervention scheduled/documen vickie in this visit Monitor patient's vital signs every home health visit Disciplines: SN, PT, OT, TUFTING CREELER, HANDBAG OPERATOR, Skilled Disciplines Monitor patient's vital signs every home health visit. 08/28/2022 Active 1 goal linked to scheduled/documen vickie intervention 1 goal intervention scheduled/documen vickie in this visit Safety concerns Disciplines: Skilled Disciplines Alteration in safety 08/28/2022 Active 1 goal linked to scheduled/documen vickie intervention 2 goal interventions scheduled/documen vickie in this visit TUFTING CREELER Impaired Swallowing Disciplines: Speech Language Pathology Impaired [...] visit during episode of care Description: Home safety companion to measure vital signs during every home [...] concerns Goal:Demonstrate use of safety precautions Completed Evaluate swallow Description: Evaluate patient swallow function Problem:TUFTING CREELER Impaired Swallowing Completed Patient is an 82 year old female with recent admission to home care following hospitalization and rehab stay d/t CVA, pmhx includes pacemaker, arthritis, CHF, depression, afib, HTN, HLD, GERD. Patient participated in skilled ST services during rehab stay for speech and swallowing abilities. Patient reports difficulty swallowing liquids and tougher, more solid foods frequently. MASA completed with score of 165 indicating moderate risk of dysphagia and mild risk of aspiration. Instruct on diet with appropriate consistencies Description: Instruct patient/caregiver on diet with appropriate consistencies Problem:TUFTING CREELER Impaired Swallowing Completed Education regarding recommendation for soft solid texture diet with patient and caregiver specific questions answered, recommend choosing foods that are soft, well cooked, and adding moisture when appropriate and avoiding piecemeal texture foods, thick breads, and tough meats. Patient and patient caregiver demonstrated comprehension. Instruct appropriate strategies to prevent choking/aspiration Description: Instruct patient/caregiver on appropriate strategies to prevent choking / aspiration Problem:TUFTING CREELER Impaired Swallowing Completed Education regarding safe swallow strategies including decreased rate, decreased bolus size, alternating liquids and solids, and sitting up straight during and 30 - 45 minutes following oral intake with patient and patient caregivers demonstrating comprehension. documented in this encounter Care Teams Vp Design Relationship Specialty Start Date End Date Jaleel Mcgovern MD PCP - General Family Practice 07/18/22 Reyanldo Flannery DO Consulting Physician Cardiology 09/26/17 Guanakito Holland MD Consulting Physician Cardiovascular Disease 07/29/18 documented as of this encounter
--- OUTSIDE RECORDS SUMMARY | 2024-04-11 06:36 | XMS_ITS | Encounter Summary ---
Author Organization [facility] Home Care Servic es Address [address] [place] [address] Phone Care Team Providers Care Domestic Helper Name Role Phone Reynaldo Flannery DO Unavailable [phone] Guanakito Holland MD Unavailable [phone] Jaleel Mcgovern MD Primary Care Provider [phone] Reason for Visit * Auth/Cert (Routine) Specialty Diagnoses / Procedures Referred By Contac t Referred To Contact Referral ID Status Reason Start Date Expiration Date Visits Re quested Visits Authorized [id number] 1 1 Encounter Details Date Type Department Care Team (Late st Contact Info) Description 08/30/2022 Home Care Visit [facility] Home Health [facility] [address] [place] [address] Mari Baum RN TELEPHONE ENCOUNTER Social History Tobacco Use Types [...] on file 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
--- OUTSIDE RECORDS SUMMARY | 2024-04-11 06:36 | XMS_ITS | Encounter Summary ---
Author Organization [facility] Home Care [facility] Address [address] [place] [address] Phone Care Team Providers Care Glass Blower Name Role Phone Reynaldo Flannery DO Unavailable [phone] Guanakito Holland MD Unavailable [phone] Jaleel Mcgovern MD Primary Care Provider [phone] Reason for Visit * Auth/Cert (Routine) Specialty Diagnoses / Procedures Referred By Contac t Referred To Contact Referral ID Status Reason Start Date Expiration Date Visits Re quested Visits Authorized [id number] 1 1 Encounter Details Date Type Department Care Team (Late st Contact Info) Description 08/28/2022 Home Care Visit [facility] Home Health [facility] [address] [place] [address] Watson Sanchez PT SBAR-START OF CARE/RESUMPTION Social History Tobacco Use Types Packs/Day Years [...] or relatives? 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
--- OUTSIDE RECORDS SUMMARY | 2024-04-11 06:36 | XMS_ITS | Encounter Summary ---
Author Organization [facility] Address [address] [place] [address] Phone Care Team Providers Care Salesperson [employer] Name Role Phone Reynaldo Flannery DO Unavailable [phone] Guanakito Holland MD Unavailable Jaleel Mcgovern MD Primary Care Provider [phone] Reason for Visit * Auth/Cert (Routine) Specialty Diagnoses / Procedures Referred By Contac t Referred To Contact Referral ID Status Reason Start Date Expiration Date Visits Re quested Visits Authorized [id number] 1 1 Encounter Details Date Type Department Care Team (Late st Contact Info) Description 09/03/2022 Home Care Visit [facility] Home Health [facility] [address] [place] [address] Watson Sanchez, PT CARE CONFERENCE Social History Tobacco Use Types Packs/Day Years [...] Recorded Patient Health Questionnaire-2 Score 0 08/23/2022 [facility] - Occupational [...] on file 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
--- OUTSIDE RECORDS SUMMARY | 2024-04-11 06:37 | XMS_ITS | Encounter Summary ---
Author Organization [facility] Healthcare Address [address] [place] [address] Care Team Providers Care Master Data Analyst Name Role Phone Reynaldo Flannery DO Unavailable [phone] Guanakito Holland MD Unavailable [phone] Jaleel Mcgovern MD Primary Care Provider [phone] Encounter Details Date Type Department Care Team (Latest Contact Info) Description 08/12/2022 11:11 AM CDT - 08/12/2022 11:59 PM CDT Hospital Encounter [facility] [address] [place] [address] Emergency, Room R Discharge Disposition: Discharge to home or self [...] very hard 08/12/2022 PHQ-2 Answer Date Recorded PHQ-2 Total Score 0 08/12/2022 [facility] - Occupational Stress Questionnaire Answer [...] medical appointments or from getting medications? No 07/23 In the past 12 months, has l ack of transportation kept you from meetings, work, or from getting things needed for daily living? No 08/12/2022 Housing Stability Vital Sign Answer Kenrick e [...] place to sleep or slept in a alf (including now)? No 08/12/2022 Personal Safety Answer Date Recorded Have you ever been in or are you currently in a harmful physical or emotional relationship or is someone making you feel afraid or unsafe? 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 RN Gender Identity Female 10/09/2022 9:08 AM CDT Sexual Orientation Choose not to disclose 2022 9:08 AM CDT documented as of this encounter Medications at Time of Discharge aspirin 81 mg chewable tabletIndications: prevention of thrombosis Take 1 tablet (81 mg total) by mouth daily 90 tablet 08/22/2022 5 cholecalciferol (VITAMIN D-3) 2,000 unit tabletIndications: Prevention of Vitamin D Deficiency take 1 tablet by oral route every day 90 3 12/06/2015 cyanocobalamin (Vitamin B-12) 100 mcg tabletIndications: Prevention of Vitamin B12 Deficiency Take 10 tablets (1,000 mcg total) by mouth daily spironolactone (ALDACTONE) 25 mg tabletIndications: hypertension Take 0.5 tablets (12.5 mg total) by mouth daily 45 tablet 08/22/2022 5 Ventolin HFA 90 mcg/actuation inhaler 07/03/2022 apixaban (ELIQUIS) 5 mg tabletIndications: atrial fibrillation Take 1 tablet (5 mg total) by mouth every 12 (twelve) hours 60 tablet 08/11/2022 3 apixaban (ELIQUIS) 5 mg tabletIndications: atrial fibrillation Take 1 tablet (5 mg total) by mouth every 12 (twelve) hours 180 tablet 08/22/2022 4 aspirin 81 mg chewable tablet Take 1 tablet (81 mg total) by mouth daily 30 tablet 11 08/12/2022 3 dapagliflozin (FARXIGA) 10 mg tablet Take 1 tablet (10 mg total) by mouth daily 30 tablet 11 08/11/2022 3 dapagliflozin (FARXIGA) 10 mg tabletIndications: Heart Failure Take 1 tablet (10 mg total) by mouth daily 90 tablet 08/22/2022 4 furosemide (LASIX) 40 mg tablet Take 1 tablet (40 mg total) by mouth daily 30 tablet 08/12/2022 3 furosemide (LASIX) 40 mg tabletIndications: hypertension Take 1 tablet (40 mg total) by mouth daily 90 tablet 08/22/2022 3 losartan (COZAAR) 25 mg tablet Take 0.5 tablets (12.5 mg total) by mouth daily 15 tablet 08/12/2022 3 metoprolol XL (TOPROL-XL) 25 mg extended release tablet Take 0.5 tablets (12.5 mg total) by mouth daily 15 tablet 08/12/2022 3 metoprolol XL (TOPROL-XL) 25 mg extended release tabletIndications: hypertension Take 0.5 tablets (12.5 mg total) by mouth daily 45 tablet 08/22/2022 4 rosuvastatin (CRESTOR) 10 mg tablet Take 1 tablet (10 mg total) by mouth nightly 30 tablet 08/11/2022 3 rosuvastatin (CRESTOR) 10 mg tabletIndications: hyperlipidemia Take 1 tablet (10 mg total) by mouth nightly 90 tablet 08/22/2022 4 spironolactone (ALDACTONE) 25 mg tablet Take 0.5 tablets (12.5 mg total) by mouth daily 15 tablet 08/12/2022 3 documented as of this encounter Discharge Disposition Disposition Code Departure Means Destination Discharge to home or self care documented in this encounter Plan of Treatment Not on file documented as of this encounter Visit Diagnoses Not on filedocumented in this encounter Care Teams Master Data Analyst Relationship Specialty Start Date End Date Jaleel Mcgovern MD PCP - General Family Practice 07/18/22 Reynaldo Flannery DO Consulting Physician Cardiology 09/26/17 Guanakito Holland MD Consulting Physician Cardiovascular Disease 07/29/18 documented as of this encounter
--- OUTSIDE RECORDS SUMMARY | 2024-04-11 06:37 | XMS_ITS | Encounter Summary ---
Author Organization [facility] Healthcare Address [address] [place] [address] Care Team Providers Care Credit Card Clerk Name Role Phone Reynaldo Flannery DO Unavailable [phone] Guanakito Holland MD Unavailable [phone] Jaleel Mcgovern MD Primary Care Provider [phone] Reason for Visit * Reason Comments Facial Droop Encounter Details Date Type Department Care Team (Late st Contact Info) Description 08/03/2022 1:38 PM CDT - 08/03/2022 3:10 PM CDT Emergency [facility] Emergency Department [address] [place] [address] Harjit Kovacs MD [address] [place] [id number] Cerebrovascular accident (CVA) due to embolism of left middle cerebral artery (HCC) (Primary Dx) Discharge Disposition: Discharge to a short term hospital for IP Social History Tobacco Use Types Packs/Day Years Used Date Smoking Tobacco: Former Cigarettes Q uit: 1975 Smokeless Tobacco: Never Alcohol Use Standard Drinks/Week Comments No 0 (1 standard drink = 0.6 oz pur e alcohol) Social Connection and Isolation Panel [NHANES] A nswer Date Recorded Frequency of Communication with Friends and Fami ly Three times a week 03/05/2019 Frequency of Social Gatherin gs with Friends and Family Once a week 03/05/2019 Attends Christianity Services Not on file 03/05 Active Member of Clubs or Organizations Not on f ile 03/05/2019 Attends Club or Organization Meetings Not on anthony e 03/05/2019 Marital Status 03/05/2019 Overall Financial Resource Strain (CARDIA) Answe r Date Recorded Difficulty of Paying Living Expenses Not very [address] 03/05/2019 PHQ-2 Answer Date Recorded PHQ-2 Total Score (If total score is 3 or more points, staff should administer the PHQ-9) 0 08/04/2022 Hunger Vital Sign Answer Date Recorded Worried About Running Out of Food in the Last Ye ar Never true 03/05/2019 Ran Out of Food in the Last Year Never true 03/05/2019 PRAPARE - Transportation Answer Date Re corded Lack of Transportation (Medical) No 03/05/2019 Lack of Transportation (Non-Medical) No 03/05/2019 Comments No Sex and Gender Information Value Date Recorded Sex Assigned at Not on file 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 Gender Identity Female 10/09/2022 9:08 AM CDT Sexual Orientation Choose not to disclose 2022 9:08 AM CDT documented as of this encounter Last Filed Vital Signs Vital Sign Reading Time Taken Comments Blood Pressure 88/75 08/03/2022 2:58 PM CDT Pulse 73 08/03/2022 3:00 PM CDT Temperature 35.9 ??C (96.7 ??F) 08/03/2022 2:58 PM CD T Respiratory Rate 24 08/03/2022 3:00 PM CDT Oxygen Saturation 96% 08/03/2022 3:00 PM CDT Inhaled Oxygen Concentration - - Weight - - Height - - Body Mass Index - - documented in this encounter Medications at Time of Discharge cholecalciferol (VITAMIN D-3) 2,000 unit tabletIndications: Prevention of Vitamin D Deficiency take 1 tablet by oral route every day 90 3 12/06/2015 cyanocobalamin (Vitamin B-12) 100 mcg tabletIndications: Prevention of Vitamin B12 Deficiency Take 10 tablets (1,000 mcg total) by mouth daily Ventolin HFA 90 mcg/actuation inhaler 07/03/2022 ALPRAZolam (XANAX) 0.25 mg tablet Take 1 tablet (0.25 mg total) by mouth 2 (two) times a day as needed for anxiety 60 tablet 1 09/23/2018 3 apixaban (ELIQUIS) 5 mg tablet take 1 tablet by oral route 2 times every day 0 0 01/24/2016 3 apixaban (ELIQUIS) 5 mg tabletIndications: atrial fibrillation Take 1 tablet (5 mg total) by mouth every 12 (twelve) hours 60 tablet 11 08/11/2022 3 artificial tears (SYSTANE) 0.3 % gel Apply 1 drop to both eyes 4 (four) times a day as needed 3 ascorbic acid (VITAMIN C) 1,000 mg tablet Take 2 tablets (2,000 mg total) by mouth daily 3 aspirin 81 mg chewable tablet Take 1 tablet (81 mg total) by mouth daily 30 tablet 11 08/12/2022 3 dapagliflozin (FARXIGA) 10 mg tablet Take 1 tablet (10 mg total) by mouth daily 30 tablet 5 08/06/2022 3 dapagliflozin (FARXIGA) 10 mg tablet Take 1 tablet (10 mg total) by mouth daily 30 tablet 08/11/2022 3 empagliflozin (JARDIANCE) 10 mg tablet Take 1 tablet (10 mg total) by mouth daily 30 tablet 5 08/06/2022 3 Entresto 24-26 mg tablet 01/11/2020 3 fexofenadine (WALESKA) 180 mg tablet Take 1 tablet (180 mg total) by mouth daily 3 fluticasone propionate (FLONASE) 50 mcg/actuation nasal spray Administer 2 sprays into each nostril daily 16 g 3 07/23/2019 3 furosemide (LASIX) 20 mg tablet Take 1 tablet (20 mg total) by mouth daily 90 tablet 1 09/19/2021 3 furosemide (LASIX) 40 mg tablet Take 1 tablet (40 mg total) by mouth daily 30 tablet 08/12/2022 3 losartan (COZAAR) 25 mg tablet Take 0.5 tablets (12.5 mg total) by mouth daily 15 tablet 08/12/2022 3 metoprolol XL (TOPROL-XL) 25 mg extended release tablet Take 0.5 tablets (12.5 mg total) by mouth daily 15 tablet 08/12/2022 3 rosuvastatin (CRESTOR) 10 mg tablet Take 1 tablet (10 mg total) by mouth nightly 30 tablet 08/11/2022 3 spironolactone (ALDACTONE) 25 mg tablet Take 1 tablet (25 mg total) by mouth daily 90 tablet 09/19/2021 3 spironolactone (ALDACTONE) 25 mg tablet Take 0.5 tablets (12.5 mg total) by mouth daily 15 tablet 08/12/2022 3 documented as of this encounter Discharge Disposition Disposition Code Departure Means Destination Comment s Discharge to a short term hospital for [facility] documented in this encounter ED Notes * Harjit Kovacs MD - 08/03/2022 2:35 PM CDT HPI Chief Complaint Patient presents with Facial Droop Better patient was eating lunch. Shortly afterwards at 1:05 p.m. she developed right facial weakness with right upper extremity and right lower extremity weakness. She was nonverbal. EMS said her blood pressure was 68/31. No trauma. She is on Plavix. History of atrial fibrillation. Previously on Eliquis. I called her pharmacy and she is not getting Eliquis anymore. Discussed with family members about her history. Patient History: Patient Active Problem List Diagnosis Date Noted History of coronary artery stent placement 08/28/2021 Cardiac pacemaker in situ 09/17/2021 GENNY (obstructive sleep apnea) 09/29/2018 Sick sinus syndrome (CMS/HCC) ([facility]) 09/14/2018 B12 deficiency 12/23/2017 Abdominal aortic aneurysm (AAA) without rupture (HCC) 06/25/2017 Anxiety 03/12/2017 Coronary artery disease involving cahto coronary artery of cahto heart 12/25/2016 Paroxysmal atrial fibrillation (CMS/HCC) (HCC) 12/25/2016 Chronic GERD 12/25/2016 Hypertension 01/28/2013 Hyperlipidemia 01/28/2013 Osteoarthritis 01/20/2013 Past Medical History: Diagnosis Date Adiposity obesity Aortic aneurysm (HCC) Pt states found by ultrasound upper abd. Arthritis Atrial fibrillation (CMS/HCC) (HCC) CHF (congestive heart failure) (CMS/HCC) (HCC) Colon polyp Depression Diverticulosis Dysphagia Gastroesophageal reflux disease GERD History of loop recorder HX OTHER MEDICAL Depression, with Anxiety HX OTHER MEDICAL DJD HX OTHER MEDICAL a.fib HX OTHER MEDICAL Atrial Fibrillation; Outcome: heart ablation Hyperlipidemia Hyperlipidemia Hypertension Hypertension Myocardial infarction (CMS/HCC) (HCC) 2014 Sleep apnea Vertigo Past Surgical History: Procedure Laterality Date ABDOMINAL SURGERY CARDIAC PACEMAKER PLACEMENT CATARACT EXTRACTION W/ INTRAOCULAR LENS IMPLANT Bilateral CHOLECYSTECTOMY 1981 Cholecystectomy EYE SURGERY OTHER SURGICAL HISTORY Right 1980 partial oopherectomy OTHER SURGICAL HISTORY heart cath with stent 2013 [place] OTHER SURGICAL HISTORY 2016 a.fib: loop recorder implanted OTHER SURGICAL HISTORY 2015 Atrial Fibrillation: Cardiovascular Intervention (ablation) SKIN BIOPSY Family History Problem Relation Age of Onset Other Mother Angina; Cause of : Angina Dementia Mother Dementia; Depression Mother Depression; COPD Father COPD; Cause of : COPD Dementia Father Dementia; Depression Father Depression; Other Sister 75 DM, CAD; Other Sister Valve Replacement; Cancer Brother Cancer; Depression Brother Depression; Hypertension Brother Hypertension; Breast cancer Child Social History Tobacco Use Smoking status: Former Types: Cigarettes Quit date: 1974 Years since quittin.3 Smokeless tobacco: Never Vaping Use Vaping status: Never Used Substance and Sexual Activity Alcohol use: No Drug use: No Sexual activity: Defer Social History Social History Narrative Agrees to blood/blood products: Y Agrees to blood/blood products: Y Review of Systems Review of Systems Unable to perform ROS: Patient unresponsive Physical Exam ED Triage Vitals Temp Pulse Resp BP SpO2 08/03/22 1424 08/03/22 1423 08/03/22 1423 08/03/22 1346 08/03/22 1423 36.1 ??C (96.9 ??F) 74 23 90/45 98 % Temp src Heart Rate Source Patient Position BP Location FiO2 (%) 08/03/22 1443 -- -- 08/03/221442 -- Temporal Left arm Height Height Method Weight Weight Method -- -- -- -- Physical Exam Vitals and nursing note reviewed. Constitutional: General: She is not in acute distress. Appearance: She is well-developed. Comments: Eyes open. Nonverbal. HENT: Head: Normocephalic and atraumatic. Eyes: Conjunctiva/sclera: Conjunctivae normal. Cardiovascular: Rate and Rhythm: Normal rate and regular rhythm. Heart sounds: No murmur heard. Pulmonary: Effort: Pulmonary effort is normal. No respiratory distress. Breath sounds: Normal breath sounds. Abdominal: Palpations: Abdomen is soft. Tenderness: There is no abdominal tenderness. Musculoskeletal: General: No swelling. Cervical back: Neck supple. Skin: General: Skin is warm and dry. Capillary Refill: Capillary refill takes less than 2 seconds. Neurological: Mental Status: She is alert. Comments: Patient completely nonverbal. Moderate right facial weakness. Right arm and right leg arecompletely flaccid. Sensation grossly intact. Patient touches her face with her left arm. Patient does not follow commands. Unable to gaze to the right. She has right jalen-neglect. Psychiatric: Comments: Unresponsive Labs Reviewed CBC WITH AUTO DIFFERENTIAL - Abnormal Result Value WBC 6.3 Hgb 13.0 Hct 40.3 Plt 185 MPV 10.4 RBC 4.23 MCV 95.3 MCH 30.7 MCHC 32.3 RDW CV 14.0 RDW SD 49.0 (*) NRBC abs 0.00 Narrative: Potential Stroke Patient PROTIME-INR - Abnormal PT 13.8 (*) INR 1.3 (*) TROPONIN T HIGH-SENSITIVITY SERIES (BASELINE, 2HR, 4HR, 6HR) - Abnormal Trop T hs 18 (*) URINALYSIS AND REFLEX TO MICROSCOPIC AND CULTURE COMPREHENSIVE METABOLIC PANEL Sodium 138 Potassium, pl 3.7 Chloride 104 CO2 25 Anion gap 9 BUN 13 Creatinine 0.78 Glucose 150 Calcium 9.2 Bilirubin, total 0.7 Protein, pl 6.5 Albumin 3.9 Alk phos 41 ALT 11 AST 19 Narrative: Potential Stroke Patient APTT aPTT 28 Narrative: Potential stroke patient. DIFFERENTIAL AUTO Neutrophil abs 3.5 Imm gran abs 0.0 Lymphocyte abs 2.0 Monocyte abs 0.5 Eosinophil abs 0.1 Basophil abs 0.1 Neutrophil pct 55.6 Imm gran pct 0.3 Lymphocyte pct 32.4 Monocyte pct 8.6 Eosinophil pct 2.1 Basophil pct 1.0 EGFR eGFR 76 TROPONIN T HIGH-SENSITIVITY 2-HOUR TROPONIN T HIGH-SENSITIVITY 4-HR TROPONIN T HIGH-SENSITIVITY 6-HOUR POCT GLUCOSE DEVICE CTA Head Neck W WO Contrast Final Result CT Stroke Head WO Contrast Final Result MDM NIH Score Level of Consciousness (1a.): 0 LOC Questions (1b.): 2 LOC Commands (1c.): 2 Best Gaze (2.): 2 Visual (3.): 0 Facial Palsy (4.): 2 Motor Arm, Left (5a.): 0 Motor Arm, Right (5b.): 4 Motor Leg, Left (6a.): 0 Motor Leg, Right (6b.): 4 Limb Ataxia (7.): 0 Sensory (8.): 0 Best Language (9.): 3 Dysarthria (10.): 2 Extinction and Inattention (11.) (Formerly Neglect): 2 Total: 23 Medical Decision Making Patient presents with unresponsiveness and right-sided weakness. History of atrial fibrillation, pacemaker, coronary disease. Amount and/or Complexity of Data Reviewed Labs: ordered. Details: Troponin 18. INR 1.3. Radiology: ordered. Details: CT stroke: Left MCA stroke CTA: Left MCA occlusion ECG/medicine tests: ordered and independent interpretation performed. Details: EKG: Paced, rate 69 Discussion of management or test interpretation with external provider(s): Differential diagnosis: Stroke, intracranial hemorrhage, metabolic. CT, CTA consistent with stroke. Will give TNKase. Transfer to [place] for thrombectomy. Family agreeable to thrombolytics, thrombectomy. Will give fluid bolus to get blood pressure up. Risk Prescription drug management. Decision regarding hospitalization. Emergency major surgery. ED Course as of 08/03/22 1506 Time: 08/03 1414 Comment: Blood pressure 109/89 By: Harjit Kovacs MD Time: 08/03 1595 Comment: Dr. Gomez. Give TNKase. Transfer emergently to [facility] for thrombectomy. By: Harjit Kovacs MD Time: 08/03 1448 Comment: Dr. Coleman accepting for ER, [place]. By: Harjit Kovacs MD Time: 08/03 1506 Comment: Patient had significant vomiting in the ER. By: Harjit Kovacs MD Final diagnoses: Cerebrovascular accident (CVA) due to embolism of left middle cerebral artery (HCC) Harjit Kovacs MD 08/03/22 1440 Harjit Kovacs MD 08/03/22 1446 Harjit Kovacs MD 08/03/22 1506 * Tammi Diaz RN - 08/03/2022 1:38 PM CDT Patient presents to the ED per EMS from a restaurant where EMS was called for right sided weakness and facial droop as well as gaze deviated to the left, per EMS +thinner. BP 68/31 initially and 90/45 per EMS upon arrival. BG 141 per EMS and 137 here upon arrival LKN 13:05 Patient's daughter was at bedside and states patient can get like this when she has MSG * Monica Li RN - 08/03/2022 1:38 PM CDT Bed: ED12 Expected date: Expected time: Means of arrival: Comments: [id number] Monica Li RN 08/03/22 1338 documented in this encounter Miscellaneous Notes * ED Procedure Note - Harjit Kovacs MD - 08/03/2022 2:42 PM CDTAssociated Order(s): Critical Care Procedure Critical Care Performed by: Harjit Kovacs MD Authorized by: Harjit Kovacs MD Critical care provider statement: As reflected in the history, physical exam, orders, notes, and/or MDM, I was personally present while the patient was critically ill and provided critical care services for 60 minutes, excluding timeinvolved in separately billable procedures. Critical care was necessary to treat or prevent imminent or life- threatening deterioration of the following condition(s): acute cerebrovascular accident (CVA) and severe neurologic condition Critical care was time spent by me providing the following: decision regarding acute lytic therapy and initiation of stroke management I provided emergent necessary critical care medicine services to this patient. I ordered and reviewed test results and/or imaging studies. I spent time discussing the management of this critically ill patient with consultants and the medical staff. I spent time discussing the management and therapeutic options for this critically ill patient with the patient themselves or with the appropriate designated surrogate decision-maker. Harjit Kovacs MD 08/03/22 1443 * ED Procedure Note - Harjit Kovacs MD - 08/03/2022 2:40 PM CDTAssociated Order(s): ECG 12 lead Procedure ECG 12 lead Date/Time: 08/03/2022 2:40 PM Performed by: Harjit Kovacs MD Authorized by: Harjit Kovacs MD Rate: ECG rate: 69 Rhythm: Rhythm: paced Interpretation: Interpretation: abnormal Harjit Kovacs MD 08/03/22 1441 documented in this encounter Plan of Treatment Not on file documented as of this encounter Procedures Procedure Name Priority Date/Time Associated Diagnosis Comments RI CRITICAL CARE ILL/INJURED PATIENT INIT 30-74 MIN Routine 08/03/2022 2:42 PM CDT CTA HEAD NECK W WO CONTRAST ED 08/03/2022 2:25 PM CDT ECG 12-LEAD STAT 08/03/2022 2:11 PM CDT TROPONIN T HIGH-SENSITIVITY SERIES (BASELINE, 2HR, 4HR, 6HR) STAT 08/03/2022 1:50 PM CDT EGFR STAT 08/03/2022 1:50 PM CDT DIFFERENTIAL AUTO STAT 08/03/2022 1:5 0 PM CDT CBC WITH AUTO DIFFERENTIAL STAT 08/03/2022 1:50 PM CDT APTT STAT 08/03/2022 1:50 PM CDT PROTIME-INR STAT 08/03/2022 1:50 PM CDT COMPREHENSIVE METABOLIC PANEL STAT 08/03/2022 1:[address] STROKE PROTOCOL WO CONTRAST Critical/Life-T hreatening 08/03/2022 1:49 PM CDT documented in this encounter Results * RI CRITICAL CARE ILL/INJURED PATIENT INIT 30-74 MIN (08/03/2022 2:42 PM CDT) Narrative Harjit Kovacs MD - 08/03/2022 2:42 PM CDT Harjit Kovacs MD ? 08/03/2022 ??2:43 PM Critical Care Performed by: Harjit Kovacs MD Authorized by: Harjit Kovacs MD ?? Critical care provider statement: As reflected in the history, physical exam, orders, notes, and/or MDM, I was personally present while the patient was critically ill and provided critical care services for 60 minutes, excluding time involved in separately billable procedures. ??Critical care was necessary to treat or prevent imminent or life-threatening deterioration of the following condition(s): ?? acute cerebrovascular accident (CVA) and severe neurologic condition ??Critical care was time spent by me providing the following: ? decision regarding acute lytic therapy and initiation of stroke management ?? I provided emergent necessary critical care medicine services to this patient. I ordered and reviewed test results and/or imaging studies. I spent time discussing the management of this critically ill patient with consultants and the medical staff. I spent time discussing the management and therapeutic options for this critically ill patient with the patient themselves or with the appropriate designated surrogate decision-maker. us Harjit Kovacs MD IN CLINIC/BEDSIDE ORDERABLES Final Result * CTA Head Neck W WO Contrast (08/03/2022 2:25 PM CDT) Anatomical Region Laterality Modality Head and Neck N/A Computed Tomogra phy 08/03/2022 2:34 PM CDT Narrative 08/03/2022 3:02 PM CDT EXAM DESCRIPTION: ?? CTA HEAD NECK W WO CONTRAST REASON FOR STUDY: ?? Stroke/TIA, determine embolic source ?? Right side weakness / right facial droop / last known normal 13:05 ??Pt's turned her head to the right just before the scan was finished and shw was breathing very heavy ?test TECHNIQUE: Axial dynamic scanning technique with dynamic contrast enhancement through the intracranial and extracranial carotid and vertebral arteries. Multiplanar reconstruction. All stenosis measurements are based on NASCET criteria. ??3D MIP images rendered on scanning unit and reviewed at time of interpretation. Automated exposure control was used as a dose optimization technique for this examination. CONTRAST TYPE/DOSE: ?? 100mL of IOVERSOL 350 MG IODINE/ML INTRAVENOUS SYRINGE ?? injected via ?? intravenous COMPARISON: ?? Head CT from earlier. FINDINGS: INTRACRANIAL VESSELS [place] OF SPARROW: ?? Exam is severely limited. ??The majority of the contrast is in the pulmonary artery. ??Within limitation, there is near-complete occlusion of the left middle cerebral artery at the M1 segment with faint contrast filling sylvian and cortical opercular M 2 and M3 branches. ??Intracranial vasculature otherwise demonstrates normal contrast enhancement. POSTERIOR CIRCULATION: ?? The distal vertebral arteries are patent as is the basilar artery. No aneurysm. ??Minimal atheromatous plaque distal vertebral artery segments. BRAIN: ?? No gross enhancing lesions as visualized. ??No acute hemorrhage. CAROTID CTA RIGHT CAROTIDS: ?? Scattered calcific plaque throughout the common carotid artery. ??At the carotid bifurcation, circumferential plaque with moderate stenosis of the proximal internal carotid artery estimated at least at 50%. ?? Distally, the internal carotid artery caliber is normal through skull base. LEFT CAROTIDS: ?? Irregular coarse calcific plaque at the distal left common carotid artery. ??Coarse bulky calcific plaque at the proximal left internal carotid artery. ??There is high-grade stenosis of the proximal left internal carotid artery with stenosis estimated at approximately 80%. ?? LEFT VERTEBRAL: ?? Patent. No significant stenosis. No dissection. RIGHT VERTEBRAL: ?? Patent. No significant stenosis. No dissection. AORTIC ARCH: ?? There is calcification-plaque throughout the aortic arch. ??No high-grade stenosis. NECK SOFT TISSUE: ?? No mass, adenopathy. No thyroid nodule greater than 1 cm. INCLUDED LUNGS: ?? Limited by respiratory motion. ??No definable focal lesion. OTHER: ?? No other significant finding. IMPRESSION: INTRACRANIAL CTA: Severely limited evaluation due to bolus timing. ??The majority of the bolus is present within the pulmonary arteries. ??Within limitation, there is near complete occlusion of the left middle cerebral artery at the M1 segment. There is faint contrast filling of the Sylvian and cortical opercular branches. ?? Intracranial vasculature otherwise is grossly unremarkable. CAROTID CTA: Densely calcified plaque at the carotid bifurcations with stenosis of the proximal left internal carotid artery estimated at approximately 80%. Moderate stenosis of the proximal right internal carotid artery estimated at 50%. ?? Recommend correlation with carotid Doppler ultrasound for additional information. No abnormality of the vertebral arteries. Findings discussed with Dr. Kovacs at the time of the dictation THIS IS AN ELECTRONICALLY VERIFIED FINAL REPORT 08/03/2022 3:02 PM - Electronically signed by ??Lillie Mckinley M.D. LC: BEN D: ??08/03/2022 3:02 PM T: ??08/03/2022 3:02 PM Report ID: [id number] Reading Location: ??[id number] Procedure Note Nabila Mckinley MD - 08/03/2022 EXAM DESCRIPTION: CTA HEAD NECK W WO CONTRAST REASON FOR STUDY: Stroke/TIA, determine embolic source Right side weakness / right facial droop / last known normal 13:05 Pt's turned her head to the right just before the scan was finished and shw was breathing very heavy test TECHNIQUE: Axial dynamic scanning technique with dynamic contrastenhancement through the intracranial and extracranial carotid and vertebral arteries. Multiplanar reconstruction. All stenosis measurements are based on NASCET criteria. 3D MIP images rendered on scanning unit and reviewed at time of interpretation. Automated exposure control was used as a dose optimization technique forthis examination. CONTRAST TYPE/DOSE: 100mL of IOVERSOL 350 MG IODINE/ML INTRAVENOUSSYRINGE injected via intravenous COMPARISON: Head CT from earlier. FINDINGS: INTRACRANIAL VESSELS [place] OF SPARROW: Exam is severely limited. The majority of thecontrast is in the pulmonary artery. Within limitation, there is near-completeocclusion of the left middle cerebral artery at the M1 segment with faint contrast filling sylvian and cortical opercular M 2 and M3 branches. Intracranial vasculature otherwise demonstrates normal contrast enhancement. POSTERIOR CIRCULATION: The distal vertebral arteries are patent as isthe basilar artery. No aneurysm. Minimal atheromatous plaque distal vertebral artery segments. BRAIN: No gross enhancing lesions as visualized. No acute hemorrhage. CAROTID CTA RIGHT CAROTIDS: Scattered calcific plaque throughout the common carotid artery. At the carotid bifurcation, circumferential plaque with moderate stenosis of the proximal internal carotid artery estimated at least at50%. Distally, the internal carotid artery caliber is normal through skullbase. LEFT CAROTIDS: Irregular coarse calcific plaque at the distal leftcommon carotid artery. Coarse bulky calcific plaque at the proximal leftinternal carotid artery. There is high-grade stenosis of the proximal leftinternal carotid artery with stenosis estimated at approximately 80%. LEFT VERTEBRAL: Patent. No significant stenosis. No dissection. RIGHT VERTEBRAL: Patent. No significant stenosis. No dissection. AORTIC ARCH: There is calcification-plaque throughout the aortic arch.No high-grade stenosis. NECK SOFT TISSUE: No mass, adenopathy. No thyroid nodule greater than 1cm. INCLUDED LUNGS: Limited by respiratory motion. No definable focallesion. OTHER: No other significant finding. IMPRESSION: INTRACRANIAL CTA: Severely limited evaluation due to bolus timing. The majority of thebolus is present within the pulmonary arteries. Within limitation, there is near complete occlusion of the left middle cerebral artery at the M1 segment.There is faint contrast filling of the Sylvian and cortical opercular branches. Intracranial vasculature otherwise is grossly unremarkable. CAROTID CTA: Densely calcified plaque at the carotid bifurcations with stenosis of the proximal left internal carotid artery estimated at approximately 80%.Moderate stenosis of the proximal right internal carotid artery estimated at 50%. Recommend correlation with carotid Doppler ultrasound for additional information. No abnormality of the vertebral arteries. Findings discussed with Dr. Kovacs at the time of the dictation THIS IS AN ELECTRONICALLY VERIFIED FINAL REPORT 08/03/2022 3:02 PM - Electronically signed by Lillie Mckinley M.D. LC: BEN Report ID: [id number] Reading Location: [id number] us Harjit Kovacs MD IMG CT PROCEDURES Final Resu lt * ECG 12 lead (08/03/2022 2:11 PM CDT) 08/03/2022 2:11 PM CDT Narrative [facility] - 08/05/2022 8:48 AM CDT Vent Rate: 69 bpm RR Interval: 865 msec RI Interval: 0 msec QRS Duration: 185 msec QT Interval: 477 msec QTC Interval: 496 msec P-R-T [place]: 0 - -69 - 107 degrees ELECTRONIC VENTRICULAR PACEMAKER ABNORMAL RHYTHM ECG NO SIGNIFICANT CHANGE SINCE PREVIOUS TRACING Electronically Signed By: Abdullahi Fritz us Harjit Kovacs MD ECG ORDERABLES Final Result [facility] * eGFR (08/03/2022 1:50 PM CDT) eGFR 76 mL/min/1. 73 m2 ANDREW JUARE[facility] (GARY) Comment: Interpretive Data Reference Interval Normal ?>/= [...] interpretive data was last reviewed 2021. Blood 08/03/2022 1:50 PM CDT 08/03/2022 1:52 PM CDT us Adryan Blair MD LAB BLOOD ORDERABLES Final Result ANDREW JUAREZ (GARY) 1 [facility] Department [place] [address] * Differential, auto (08/03/2022 1:50 PM CDT) Neutrophil abs 3.5 1.7 - 6.5 K/cumm [facility] (OG) Imm gran abs 0.0 0.0 - 0.1 K/cumm [facility] (OG) Lymphocyte abs 2.0 0.8 - 3.3 K/cumm [facility] (OG) Monocyte abs 0.5 0.2 - 0.8 K/cumm [facility] (OG) Eosinophil abs 0.1 0.0 - 0.5 K/cumm [facility] (OG) Basophil abs 0.1 0.0 - 0.1 K/cumm [facility] (OG) Neutrophil pct 55.6 % [facility] ([facility]) Comment: Interpretive Data Percent cell count reference ranges are not reported, since discordance with absolute values may lead to misinterpretation of CBC data. Current Interpretive Data was last revised on 2017. Imm gran pct 0.3 % [facility] (OG) Comment: Interpretive Data Percent cell count reference ranges are not reported, since discordance with absolute values may lead to misinterpretation of CBC data. Current Interpretive Data was last revised on 2017. Lymphocyte pct 32.4 % [facility] ([facility]) Comment: Interpretive Data Percent cell count reference ranges are not reported, since discordance with absolute values may lead to misinterpretation of CBC data. Current Interpretive Data was last revised on 2017. Monocyte pct 8.6 % [facility] (OG) Comment: Interpretive Data Percent cell count reference ranges are not reported, since discordance with absolute values may lead to misinterpretation of CBC data. Current Interpretive Data was last revised on 2017. Eosinophil pct 2.1 % [facility] ([facility]) Comment: Interpretive Data Percent cell count reference ranges are not reported, since discordance with absolute values may lead to misinterpretation of CBC data. Current Interpretive Data was last revised on 2017. Basophil pct 1.0 % [facility] (OG) Comment: Interpretive Data Percent cell count reference ranges are not reported, since discordance with absolute values may lead to misinterpretation of CBC data. Current Interpretive Data was last revised on 2017. Blood 08/03/2022 1:50 PM CDT 08/03/2022 1:52 PM CDT Adryan Blair MD LAB BLOOD ORDERABLES Final Result Performing Organization Address [facility] de Phone Number ANDREW JUAREZ (GARY) [address] [place] [id number] * (ABNORMAL) Troponin T high-sensitivity series (baseline, 2hr, 4hr, 6hr) (08/03/2022 1:50 PM CDT) Trop T hs 18(H) <=14 ng/L ANDREW JU[facility] (OG) Comment: Interpretive Data For further hscTnT resources including the diagnostic algorithm and an aid in interpretation, copy and paste this link: https://nrl.testcatalog.org/show/hsTrop Current Interpretive Data last revised 2020. Blood 08/03/2022 1:50 PM CDT 08/03/2022 1:52 PM CDT us Harjit Kovacs MD LAB BLOOD ORDERABLES Final R esult Performing Organization Address [facility] Co de Phone Number ANDREW JUAREZ (OG) [address] [place] [address] * aPTT (08/03/2022 1:50 PM CDT) aPTT 28 27 - 37 sec ANDREW [facility] (OG) Comment: Interpretive data Heparin therapeutic range: 60-94 seconds Range based on correlation with therapeutic heparin activity range of 0.3-0.7 units/ml. Current interpretive data was last revised on 2019. Blood (Blood, Venous) 08/03/2022 1:50 PM CDT 08/03/2022 1:52 PM CDT Narrative ANDREW [facility] (GARY) - 08/03/2022 2:19 PM CDT Potential stroke patient. Harjit Kovacs MD LAB BLOOD ORDERABLES Final R esult Performing Organization Address City/[facility]/ZIP Co de Phone Number ANDREW JUAREZ (GARY) 1 [facility] [employer] [address] * (ABNORMAL) Protime-INR (08/03/2022 1:50 PM CDT) PT 13.8(H) 9.2 - 13.5 sec [facility] (OG) INR 1.3(H) 0.9 - 1.2 [facility] (OG) Comment: Interpretive data Oral anticoagulant therapeutic ranges: Venous thromboembolism prophylaxis or treatment: 2.0-3.0 CARDIOLOGY Standard range: 2.0-3.0 High-intensity range: 2.5-3.5 Refer to indication-specific guidelines for appropriate target ranges for prosthetic heart valve replacement. Current interpretive data was last revised on 2019. Blood 08/03/2022 1:50 PM CDT 08/03/2022 1:52 PM CDT Harjit Kovacs MD LAB BLOOD ORDERABLES Final R esult Performing Organization Address City/[facility] Co de Phone Number ANDREW JUAREZ (GARY) 1 [facility] [employer] [address] * Comprehensive metabolic panel (08/03/2022 1:50 PM CDT) Sodium 138 135 - 145 mmol/L [facility] (OG) Potassium, pl 3.7 3.3 - 4.9 mmol/L [facility] (OG) Chloride 104 97 - 110 mmol/L [facility] (OG) CO2 25 22 - 32 mmol/L [facility] (OG) Anion gap 9 2 - 15 mmol/L [facility] (OG) BUN 13 8 - 25 mg/dL [facility] (OG) Creatinine 0.78 0.60 - 1.10 mg/dL [facility] (OG) Glucose 150 70 - 199 mg/dL [facility] (OG) Comment: Interpretive Data Fasting glucose >/= 126 [...] interpretive data was last revised 2022. Calcium 9.2 8.5 - 10.3 mg/dL [facility] (OG) Bilirubin, total 0.7 0.1 - 1.2 mg/dL [facility] (OG) Protein, pl 6.5 6.5 - 8.5 g/dL [facility] (OG) Albumin 3.9 3.5 - 5.0 g/dL [facility] (OG) Alk phos 41 40 - 130 Units/L [facility] (OG) ALT 11 7 - 45 Units/L [facility] ([facility]) AST 19 10 - 45 Units/L [facility] (OG) Blood (Blood, Venous) 08/03/2022 1:50 PM CDT 08/03/2022 1:52 PM CDT Narrative [facility] (OG) - 08/03/2022 2:33 PM CDT Potential Stroke Patient us Harjit Kovacs MD LAB BLOOD ORDERABLES Final R esult [facility] 1 [facility] [place] [address] * (ABNORMAL) CBC with auto differential (08/03/2022 1:50 PM CDT) WBC 6.3 3.8 - 9.9 K/cumm [facility] (OG) Hgb 13.0 11.9 - 15.5 g/dL [facility] (OG) Hct 40.3 35.6 - 45.5 % [facility] (OG) Plt 185 150 - 400 K/cumm [facility] (OG) MPV 10.4 9.1 - 12.3 fL [facility] ([facility]) RBC 4.23 3.90 - 5.20 M/cumm [facility] ([facility]) MCV 95.3 81.3 - 96.4 fL [facility] ([facility]) MCH 30.7 27.1 - 33.3 pg [facility] ([facility]) MCHC 32.3 32.3 - 35.7 g/dL [facility] ([facility]) RDW CV 14.0 11.1 - 14.9 % [facility] ([facility]) RDW SD 49.0(H) 35.7 - 48.1 fL [facility] ([facility]) NRBC abs 0.00 0.00 - 0.01 K/cumm [facility] ([facility]) Blood (Blood, Venous) 08/03/2022 1:50 PM CDT 08/03/2022 1:52 PM CDT Narrative ANDREW JU[facility]Z (OG) - 08/03/2022 1:54 PM CDT Potential Stroke Patient Harjit Kovacs MD LAB BLOOD ORDERABLES Final R esult [facility] (OG) 1 [facility] [place] [address] * CT Stroke Head WO Contrast (08/03/2022 1:49 PM CDT) Anatomical Region Laterality Modality Head N/A Computed Tomogra phy 08/03/2022 1:52 PM CDT Narrative 08/03/2022 2:00 PM CDT EXAM DESCRIPTION: ?? CT STROKE HEAD WO CONTRAST REASON FOR STUDY: ?? Stroke, follow up, Stroke ?? Right side weakness ??and facial droop / last known normal 13:05 / left side deviation ?? TECHNIQUE: Axial images acquired through the brain without intravenous contrast. ??Images stored on PACS. ?? Automated exposure control was used as a dose optimization technique for this examination. COMPARISON: ?? There is no comparison. FINDINGS: BRAIN: ?? There is a hyperdense thrombus within the left M2 MCA segment in keeping with hyperdense MCA sign as would be seen with thrombus. ??Possible minimal edema along the anterior left temporal lobe with minimal melchor-white differentiation loss. ??No large territory cortical infarction is identified. ?? There is no acute hemorrhage. ??No chronic cortical hemorrhage is identified. ?? There is patchy and confluent low density throughout periventricular white matter with scattered subcortical white matter hypodensity in keeping with likely microvascular change. ?No mass effect or midline shift. ??Atheromatous calcification of the cavernous carotid arteries. EXTRA-AXIAL SPACES: ?? No fluid collections. No masses. CALVARIUM: ?? No fracture. SINUSES/MASTOIDS: ?? Mucosal thickening along the maxillary floors. ??Paranasal sinuses and mastoid air cells otherwise normally aerated. ORBITS: ?? No significant abnormality. OTHER: ?? No other significant abnormality. IMPRESSION: Hyperdense left MCA segment in keeping with acute MCA territory thrombus. Possible minimal melchor-white differentiation loss in the anterior left temporal lobe. No large territory cortical infarction. No acute hemorrhage. Patchy and confluent low density throughout periventricular white matter in keeping with microvascular change. Acute findings discussed with Dr. Fong at the time of this dictation, as per acute stroke protocol. THIS IS AN ELECTRONICALLY VERIFIED FINAL REPORT 08/03/2022 2:00 PM - Electronically signed by ??Lillie Mckinley M.D. LC: BEN D: ??08/03/2022 2:00 PM T: ??08/03/2022 2:00 PM Report ID: [id number] Reading Location: ??[id number] Procedure Note Nabila Mckinley MD - 08/03/2022 EXAM DESCRIPTION: CT STROKE HEAD WO CONTRAST REASON FOR STUDY: Stroke, follow up, Stroke Right side weakness and facial droop / last known normal 13:05 / leftside deviation TECHNIQUE: Axial images acquired through the brain without intravenous contrast. Images stored on PACS. Automated exposure control was used asa dose optimization technique for this examination. COMPARISON: There is no comparison. FINDINGS: BRAIN: There is a hyperdense thrombus within the left M2 MCA segment in keeping with hyperdense MCA sign as would be seen with thrombus. Possible minimal edema along the anterior left temporal lobe with minimalgray-white differentiation loss. No large territory cortical infarction isidentified. There is no acute hemorrhage. No chronic cortical hemorrhage isidentified. There is patchy and confluent low density throughout periventricularwhite matter with scattered subcortical white matter hypodensity in keeping with likely microvascular change. No mass effect or midline shift.Atheromatous calcification of the cavernous carotid arteries. EXTRA-AXIAL SPACES: No fluid collections. No masses. CALVARIUM: No fracture. SINUSES/MASTOIDS: Mucosal thickening along the maxillary floors.Paranasal sinuses and mastoid air cells otherwise normally aerated. ORBITS: No significant abnormality. OTHER: No other significant abnormality. IMPRESSION: Hyperdense left MCA segment in keeping with acute MCA territory thrombus. Possible minimal melchor-white differentiation loss in the anterior lefttemporal lobe. No large territory cortical infarction. No acute hemorrhage. Patchy and confluent low density throughout periventricular white matterin keeping with microvascular change. Acute findings discussed with Dr. Fong at the time of this dictation, asper acute stroke protocol. THIS IS AN ELECTRONICALLY VERIFIED FINAL REPORT 08/03/2022 2:00 PM - Electronically signed by Lillie Mckinley M.D. LC: BEN Report ID: [id number] Reading Location: [id number] Harjit Kovacs MD IMG CT PROCEDURES Final Resu lt documented in this encounter Visit Diagnoses Diagnosis Cerebrovascular accident (CVA) due to embolism of left middle cerebral artery (HCC)- Primary documented in this encounter Administered Medications Inactive Administered Medications - up to 3 most recent administrations Medication Order MAR Action Action Date Dose Rate Site ioversoL (OPTIRAY 350) syringe 100 mL 100 mL, intravenous, Once in imaging, contrast, Starting on 08/03/22 at 1413, For 1 dose Contrast Given 08/03/2022 2:14 PM CDT 100 mL ondansetron (ZOFRAN) 4 mg/2 mL injection - ADS Override Pull Starting on 08/03/22 at 1405, For 1 dose, Created by cabinet override ondansetron (ZOFRAN) injection 4 mg 4 mg, intravenous, Administer over 2 Minutes, Once, On 08/03/22 at 1407, For 1 dose Given 08/03/2022 2:07 PM CDT 4 mg ondansetron (ZOFRAN) injection 4 mg 4 mg, intravenous, Administer over 2 Minutes, Once, On 08/03/22 at 1504, For 1 dose Given 08/03/2022 3:05 PM CDT 4 mg sodium chloride 0.9% bolus 1,000 mL 1,000 mL, intravenous, Once, On 08/03/22 at 1350, For 1 dose New Bag 08/03/2022 2:23 PM CDT 1,000 mL sodium chloride 0.9% bolus 1,000 mL 1,000 mL, intravenous, Once, On 08/03/22 at 1446, For 1 dose New Bag 08/03/2022 2:50 PM CDT 1,000 mL sodium chloride 0.9% flush 10 mL 10 mL, intra-catheter, Once, On 08/03/22 at 1423, For 1 dose, Flush IV catheter BEFORE tenecteplase administration. Given 08/03/2022 2:28 PM CDT 10 mL sodium chloride 0.9% flush 10 mL 10 mL, intra-catheter, Once, On 08/03/22 at 1423, For 1 dose, Flush IV catheter AFTER tenecteplase administration. Given 08/03/2022 2:28 PM CDT 10 mL tenecteplase (TNKase) 50 mg injection for STROKE - ADS Override Pull Starting on 08/03/22 at 1425, For 1 dose, Created by cabinet override 1. Swab Sterile Water & Tenecteplase vials with alcohol pad. 2. Use the included syringe to aseptically WITHDRAW 10 mL of Sterile Water for injection. 3. INJECT entire contents (10 mL) into the Tenecteplase vial, directing the diluent at the powder. Slight foaming is normal. 4. Gently SWIRL until contents are completely dissolved. DO NOT SHAKE. Reconstitution should be complete in approximately 1 minute. Final concentration is 5 mg/mL. 5. INSPECT the solution for particulate matter or discoloration. Solution should be colorless or pale yellow and transparent. 6. WITHDRAW the appropriate volume of solution based on Epic order. Waste WILL be present in the vial. 7. Flush the patient? s intravenous catheter with sodium chloride 0.9% (normal saline) 10 mL flush. 8. Administer tenecteplase as an intravenous bolus OVER 10 SECONDS. 9. Flush the intravenous catheter with sodium chloride 0.9% (normal saline) 10 mL flush. tenecteplase (TNKase) injection for STROKE 17 mg 17 mg (rounded from 17.35 mg = 0.25 mg/kg ? 69.4 kg), intravenous, Once, On 08/03/22 at 1423, For 1 dose, 1. Swab Sterile Water & Tenecteplase vials with alcohol pad. 2. Use the included syringe to aseptically WITHDRAW 10 mL of Sterile Water for injection. 3. INJECT entire contents (10 mL) into the Tenecteplase vial, directing the diluent at the powder. Slight foaming is normal. 4. Gently SWIRL until contents are completely dissolved. DO NOT SHAKE. Reconstitution should be complete in approximately 1 minute. Final concentration is 5 mg/mL. 5. INSPECT the solution for particulate matter or discoloration. Solution should be colorless or pale yellow and transparent. 6. WITHDRAW the appropriate volume of solution based on Epic order. Waste WILL be present in the vial. 7. Flush the patient? s intravenous catheter with sodium chloride 0.9% (normal saline) 10 mL flush. 8. Administer tenecteplase as an intravenous bolus OVER 10 SECONDS. 9. Flush the intravenous catheter with sodium chloride 0.9% (normal saline) 10 mL flush., Indications: Acute ischemic strokeIndications:Acute ischemic stroke Given 08/03/2022 2:28 PM CDT 17 mg documented in this encounter Active and Recently Administered Medications Times are shown in CDT. Scheduled Medication Order 08/01/2022 08/02/2022 08/03/2022 ondansetron (ZOFRAN) injection 4 mg (COMPLETED) 4 mg, intravenous, Administer over 2 Minutes, Once, On 08/03/22 at 1407, For 1 dose 1407 (Given - Provid er: Tammi Diaz RN) ondansetron (ZOFRAN) injection 4 mg (COMPLETED) 4 mg, intravenous, Administer over 2 Minutes, Once, On 08/03/22 at 1504, For 1 dose 1505 (Given - Provid er: Adenike Bernard RN) sodium chloride 0.9% bolus 1,000 mL (COMPLETED) 1,000 mL, intravenous, Once, On 08/03/22 at 1350, For 1 dose 1423 (New Bag - Prov ider: Adenike Bernard RN)1455 (Stopped - Provider: Adenike Bernard RN) sodium chloride 0.9% bolus 1,000 mL (COMPLETED) 1,000 mL, intravenous, Once, On 08/03/22 at 1446, For 1 dose 1450 (New Bag - Prov ider: Adenike Bernard RN)1510 (Continued after Discharge - Provider: Adenike Bernard RN - Comment: continued with EMS at time of transfer) sodium chloride 0.9% flush 10 mL (COMPLETED)(Linked Group 1) 10 mL, intra-catheter, Once, On 08/03/22 at 1423, For 1 dose, Flush IV catheter BEFORE tenecteplase administration. 1428 (Given - Provid er: Adenike Bernard RN) sodium chloride 0.9% flush 10 mL (COMPLETED)(Linked Group 1) 10 mL, intra-catheter, Once, On 08/03/22 at 1423, For 1 dose, Flush IV catheter AFTER tenecteplase administration. 1428 (Given - Provid er: Adenike Bernard RN) tenecteplase (TNKase) injection for STROKE 17 mg (COMPLETED)(Linked Group 1) 17 mg (rounded from 17.35 mg = 0.25 mg/kg ? 69.4 kg), intravenous, Once, On 08/03/22 at 1423, For 1 dose, 1. Swab Sterile Water & Tenecteplase vials with alcohol pad. 2. Use the included syringe to aseptically WITHDRAW 10 mL of Sterile Water for injection. 3. INJECT entire contents (10 mL) into the Tenecteplase vial, directing the diluent at the powder. Slight foaming is normal. 4. Gently SWIRL until contents are completely dissolved. DO NOT SHAKE. Reconstitution should be complete in approximately 1 minute. Final concentration is 5 mg/mL. 5. INSPECT the solution for particulate matter or discoloration. Solution should be colorless or pale yellow and transparent. 6. WITHDRAW the appropriate volume of solution based on Epic order. Waste WILL be present in the vial. 7. Flush the patient? s intravenous catheter with sodium chloride 0.9% (normal saline) 10 mL flush. 8. Administer tenecteplase as an intravenous bolus OVER 10 SECONDS. 9. Flush the intravenous catheter with sodium chloride 0.9% (normal saline) 10 mL flush., Indications: Acute ischemic stroke 1428 (Given - Provid er: Adenike Bernard RN - Comment: double verified with BRAYAN Sandoval and BRAYAN Malave) PRN Medication Order 08/01/2022 08/02/2022 08/03/2022 ioversoL (OPTIRAY 350) syringe 100 mL (COMPLETED) 100 mL, intravenous, Once in imaging, contrast, Starting on 08/03/22 at 1413, For 1 dose 1414 (Contrast Given - Provider: RT Warren) Linked Groups Order Group 1: sodium chloride 0.9% flush 10 mL (COMPLETED)Jump to med 10 mL, intra-catheter, Once, On 08/03/22 at 1423, For 1 dose, Flush IV catheter BEFORE tenecteplase administration. Followed by tenecteplase (TNKase) injection for STROKE 17 mg (COMPLETED)Jump to med 17 mg (rounded from 17.35 mg = 0.25 mg/kg ? 69.4 kg), intravenous, Once, On 08/03/22 at 1423, For 1 dose, 1. Swab Sterile Water & Tenecteplase vials with alcohol pad. 2. Use the included syringe to aseptically WITHDRAW 10 mL of Sterile Water for injection. 3. INJECT entire contents (10 mL) into the Tenecteplase vial, directing the diluent at the powder. Slight foaming is normal. 4. Gently SWIRL until contents are completely dissolved. DO NOT SHAKE. Reconstitution should be complete in approximately 1 minute. Final concentration is 5 mg/mL. 5. INSPECT the solution for particulate matter or discoloration. Solution should be colorless or pale yellow and transparent. 6. WITHDRAW the appropriate volume of solution based on Epic order. Waste WILL be present in the vial. 7. Flush the patient? s intravenous catheter with sodium chloride 0.9% (normal saline) 10 mL flush. 8. Administer tenecteplase as an intravenous bolus OVER 10 SECONDS. 9. Flush the intravenous catheter with sodium chloride 0.9% (normal saline) 10 mL flush., Indications: Acute ischemic stroke Followed by sodium chloride 0.9% flush 10 mL (COMPLETED)Jump to med 10 mL, intra-catheter, Once, On 08/03/22 at 1423, For 1 dose, Flush IV catheter AFTER tenecteplase administration. documented in this encounter Orders Lab Orders Without Results Count Last Ordered D ate First Ordered Date POCT GLUCOSE DEVICE 1 08/03/2022 Nursing Count Last Ordered Date First Orde red Date CARDIORESPIRATORY MONITOR 1 08/03/2022 WEIGH PATIENT 1 08/03/2022 IV Count Last Ordered Date First Orde red Date SALINE LOCK IV 2 08/03/2022 documented in this encounter Care Teams Credit Card Clerk Relationship Specialty Start Date End Date Jaleel Mcgovern MD PCP - General Family Practice 07/18/22 Reynaldo Flannery DO Consulting Physician Cardiology 09/26/17 Guanakito Holland MD Consulting Physician Cardiovascular Disease 07/29/18 documented as of this encounter
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
--- OUTSIDE RECORDS SUMMARY | 2024-04-11 06:37 | XMS_ITS | Encounter Summary ---
Author Organization [facility] Address [address] [place] [address] Care Team Providers Care Front End Developer Name Role Phone Ronald Castrejon MD Primary Care Provider [phone] Reynaldo Flannery DO Unavailable [phone] Guanakito Holland MD Unavailable [phone] Reason for Visit * Cardiology (Routine) - Closed Specialty Diagnoses / Procedures Referred By Contac t Referred To Contact Diagnoses Sick sinus syndrome (CMS/HCC) (HCC) Pacemaker Procedures DEVICE CHECK - IN OFFICE Mannie Hernandez MD [address] [address] Phone: tel: fax: [facility] Referral ID Status Reason Start Date Expiration Date Visits Re quested Visits Authorized [id number] Closed 08/29/2021 09/28/2022 1 1 Encounter Details Date Type Department Care Team (Latest Contact Info) Description 09/19/2021 11:00 AM CDT Ancillary Procedure [facility] Cardiology [address] [place] [id number] Sick sinus syndrome (CMS/HCC) (HCC); Pacemaker; Cardiac pacemaker in situ; Atrial fibrillation, unspecified type (HCC) Social History Tobacco Use Types Packs/Day [...] and Family Once a week 03/05/2019 Attends Ten[employer] Services Not on file 03/05 Active Member [...] on file 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 Dx; SSS, Afib. DOI 07/29/2018-Dr Holland. RA Lead replaced 09/14/18. AV Node Ablation 12/2018. Office pacemaker evaluation demonstrated appropriate device function. Left pectoral incision incision well healed without signs of infection noted. Battery function-Ok, 4.0 years 9 monthsw remaining battery life to LEANA. Appropriate lead measurements noted. Presenting rhythm-Afib VPaced. Underlying rhythm-Afib VPaced @ VVI 30 bpm. Consider Pacemaker Dependent. AP-2%, BANQUET WAITER/WAITRESS-92%. AF Dell 100%. No ventricular high rate episodes noted. Medications; Eliquis. Atrial capture control turned off and set amplitude to 2.4V. Ventricular amplitude decreased to 2.4V. See scanned report. Office pacemaker f/u 10/02/2022. Biotronik remote f/u 12/25/2021. Emailed Montserrat Joya with [employer] to transfer patient's remote monitoring. us Mannie Hernandez MD [facility] PROC EDURES Final Result documented in this encounter Visit Diagnoses Diagnosis Sick sinus syndrome (CMS/HCC) (HCC) Sinoatrial node dysfunction Pacemaker Cardiac pacemaker in situ Cardiac pacemaker in situ Atrial fibrillation, unspecified type (HCC) documented in this encounter Care Teams Front End Developer Relationship Specialty Start Date End Date Ronald Castrejon MD PCP - General 06/21/16 07/17/22 Reynaldo Flannery DO Consulting Physician Cardiology 09/26/17 Guanakito Holland MD Consulting Physician Cardiovascular Disease 07/29/18 documented as of this encounter
--- OUTSIDE RECORDS SUMMARY | 2024-04-11 06:37 | XMS_ITS | Encounter Summary ---
Author Organization [facility] Address [address] [place] [address] Care Team Providers Care After School Program Director Name Role Phone Ronald Castrejon MD Primary Care Provider [phone] Reynaldo Flannery DO Unavailable [phone] Guanakito Holland MD Unavailable [phone] Reason for Visit * Reason Comments New Patient Encounter Details Date Type Department Care Team (Late st Contact Info) Description 08/28/2021 11:15 AM CDT Office [address] 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 Gender Identity Female 10/09/2022 9:08 AM CDT Sexual Orientation Choose not to disclose 2022 9:08 AM CDT documented as of this encounter Last Filed Vital Signs Vital Sign Reading Time Taken Comments Blood Pressure 112/72 08/28/2021 10:44 AM CDT Pulse 70 08/28/2021 10:44 AM CDT Temperature - - Respiratory Rate - - Oxygen Saturation 98% 08/28/2021 10:44 AM CDT Inhaled Oxygen Concentration - - Weight 70.3 kg (155 lb) 08/28/2021 10:44 AM CDT Height 154.9 cm (5' 1 ) 08/28/2021 10:44 AM CDT Body Mass Index 29.29 08/28/2021 10:44 AM CDT documented in this encounter Progress Notes * Mannie Hernandez MD - 08/28/2021 11:15 AM CDT [facility] 08/28/2021 CHIEF COMPLAINT Patient here to establish cardiovascular care HPI Abena Giron is a 81 y.o. female with history of sick sinus syndrome and a previously implanted pacemaker according to the chart. Her previous physician has moved out of the area and she requires to become established with someone for ongoing care and follow-up. The patient states that she was found to have heart disease back in 2014 at which time she presented to the hospital with some neck/jaw pain and was found to have had a myocardial infarction. She was treated up at [place] by another drawing supervisor with a coronary stent procedure at which time she said she had a good result and there was very little injury to her heart from [place] she remembers being told. She presented with atrial fibri llation and tachy-hailey picture apparently and was treated by another para professional who no longer practices in this area. She describes being treated with amiodarone and sotalol and was intolerant to both of those medications she did receive a dual chamber pacemaker which notes referred to asa Biotronik device. According to 1 of the progress note was implanted in 2019. One of the clinic notes that I do have indicate that following that she had an AV node ablation done as well. She has been followed since then her previous physician/para professional has moved out of the area and for that reason she presents here today for follow-up with our practice. She denies having any cardiac symptoms at this time such as chest pain pressure or heaviness no shortness of breath orthopnea PND edema. We do not have any specific operative notes regarding the device implant but again 1 of the clinic notes identifies this as a Biotronik device. Her 12 lead electrocardiogram done today as a new p atient shows what appears to be atrial flutter with ventricular pacing. She has been anticoagulatedwith apixaban. The office note that I would I do have a indicates that her pacemaker follow-up overthere demonstrates 100% AF burden at this time for the last couple of years. MEDICAL HISTORY Past Medical History: Diagnosis Date ??? Adiposity obesity ??? Aortic aneurysm (CMS/HCC) (HCC) Pt states found by ultrasound upper abd. ??? Arthritis ??? Atrial fibrillation (CMS/HCC) (HCC) ??? CHF (congestive heart failure) (CMS/HCC) (HCC) ??? Colon polyp ??? Depression ??? Diverticulosis ??? Dysphagia ??? Gastroesophageal reflux disease GERD ??? History of loop recorder ??? HX OTHER MEDICAL Depression, with Anxiety ??? HX OTHER MEDICAL DJD ??? HX OTHER MEDICAL a.fib ??? HX OTHER MEDICAL Atrial Fibrillation; Outcome: heart ablation ??? Hyperlipidemia Hyperlipidemia ??? Hypertension Hypertension ??? Myocardial infarction (CMS/HCC) (HCC) 2014 ??? Sleep apnea ??? Vertigo Past Surgical History: Procedure Laterality Date ??? ABDOMINAL SURGERY ??? CARDIAC PACEMAKER PLACEMENT ??? CATARACT EXTRACTION W/ INTRAOCULAR LENS IMPLANT Bilateral ??? CHOLECYSTECTOMY 1981 Cholecystectomy ??? EYE SURGERY ??? OTHER SURGICAL HISTORY Right 1980 partial oopherectomy ??? OTHER SURGICAL HISTORY heart cath with stent 2013 [place] ??? OTHER SURGICAL HISTORY 2015 a.fib: loop recorder implanted ??? OTHER SURGICAL HISTORY 2015 Atrial Fibrillation: Cardiovascular Intervention (ablation) ??? SKIN BIOPSY Family History Problem Relation Age of Onset ??? Other Mother Angina; Cause of : Angina ??? Dementia Mother Dementia; ??? Depression Mother Depression; ??? COPD Father COPD; Cause of : COPD ??? Dementia Father Dementia; ??? Depression Father Depression; ??? Other Sister 75 DM, CAD; ??? Other Sister Valve Replacement; ??? Cancer Brother Cancer; ??? Depression Brother Depression; ??? Hypertension Brother Hypertension; ??? Breast cancer Child Social History Socioeconomic History ??? Marital status: Spouse name: Not on file ??? Number of children: Not on file ??? Years of education: Not on file ??? Highest education level: Not on file Occupational History ??? Not on file Tobacco Use ??? Smoking status: Former Smoker Quit date: 1975 Years since quittin.4 ??? Smokeless tobacco: Never Used Vaping Use ??? Vaping Use: Never used Substance and Sexual Activity ??? Alcohol use: No ??? Drug use: No ??? Sexual activity: Defer Other Topics Concern ??? Not on file Social History Narrative Agrees to blood/blood products: Y Agrees to blood/blood products: Y Social Determinants of Health Financial Resource Strain: Not on file Food Insecurity: Not on file Transportation Needs: Not on file Physical Activity: Not on file Stress: Not on file Social Connections: Not on file Intimate Partner Violence: Not on file Housing Stability: Not on file (Not in a hospital admission) Allergies Allergen Reactions ??? Phenobarbital Hallucinations ??? Codeine Rash, Vomiting, Hallucinations and Nausea only Reaction: Rash, , Reaction: rash, throw up, hallucinate, , , Reaction: Nausea, Vomiting, ??? Lisinopril Anxiety and Other (See comments) Reaction: panic attack, nerves on edge., ??? Morphine Rash, Nausea only and Vomiting Reaction: Rash, , , Reaction: Nausea, Vomiting, ??? Penicillins Rash and Vomiting Reaction: Rash, , Reaction: throw up, rash, , , Reaction: Rash, ??? Sotalol Unknown ??? Beta-Blockers (Beta-Adrenergic Blocking Agts) Other (See comments) severe heart pain ??? Diltiazem Itching REVIEW OF SYSTEMS General ROS: negative for [...] for dry skin, eczema, pruritus and rash LABS AND OTHER DIAGNOSTIC TESTS Lab Results Component Value Date WBC 8.2 01/06/2020 HGB 14.9 01/06/2020 HCT 46.0 (H) 01/06/2020 MCV 97.0 (H) 01/06/2020 No lab exists for component: LABALBU Lab Results Component Value Date CHOL 278 (H) 12/17/2018 CHOL 169 07/29/2018 CHOL 205 (H) 12/09/2017 Lab Results Component Value Date HDL 47 (L) 12/17/2018 HDL 32 (L) 07/29/2018 HDL 37 (L) 12/09/2017 Lab Results Component Value Date LDLCALC 106 07/29/2018 LDLCALC 185 (H) 11/26/2016 LDLCALC 147 12/28/2013 Lab Results Component Value Date TRIG 172 (H) 12/17/2018 TRIG 154 (H) 07/29/2018 TRIG 133 12/09/2017 Lab Results Component Value Date CHOLHDL 5.9 (H) 12/17/2018 CHOLHDL 5 07/29/2018 CHOLHDL 5.5 (H) 12/09/2017 PHYSICAL EXAM Vitals BP 112/72 (BP Location: Left arm, Patient Position: Sitting) Pulse 70 Ht 154.9 cm (5' 1 ) Wt 70.3 kg (155 lb) LMP (LMP Unknown) SpO2 98% BMI 29.29 kg/m?? General appearance - alert, well appearing, and in no distress, oriented to person, place, and timeand acyanotic, in no respiratory distress Mental status [...] to auscultation, no wheezes, rales or rhonchi, pacemaker pocket looks unremarkable symmetric air entry, no tachypnea, retractions or [...] rashes, no suspicious skin lesions noted ASSESSMENT Coronary artery disease with remote history of PCI doing well Permanent atrial fibrillation/atrial flutter Chronically implanted Biotronik pacemaker device patient wishes to have follow- up in this office PLAN/RECOMMENDATIONS Continue systemic anticoagulation Arrange for pacemaker interrogation Arrange for follow-up with me in 6 months or p.r.n. 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) documented in this encounter Results * ECG 12 lead (08/28/2021) Mannie Hernandez MD ECG ORDERABLES Final Re sult documented in this encounter Visit Diagnoses Diagnosis Paroxysmal atrial fibrillation (CMS/HCC) (HCC)- Primary Atrial fibrillation 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
--- OUTSIDE RECORDS SUMMARY | 2024-04-11 06:37 | XMS_ITS | Encounter Summary ---
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) MCA OCCLUSION: THROMBECTOMY Procedures NA Referral ID Status Reason Start Date Expiration Date Visits Re quested Visits Authorized [id number] 1 1 Encounter Details Date Type Department Care Team (Latest Contact Info) Description 08/08/2022 2:29 PM CDT - 08/08/2022 11:59 PM CDT Hospital Encounter [facility] Radiology [address] [place] [address] Discharge Disposition: Discharge to home or self [...] and Family Once a week 03/05/2019 Attends Jewish Services Not on file 03/05 Active Member [...] on file 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 Gender Identity Female 10/09/2022 9:08 AM CDT [...] 12 (twelve) hours 60 tablet 08/11/2022 3 artificial tears (SYSTANE) 0.3 % gel Apply 1 drop to both eyes 4 (four) times a day as needed 3 ascorbic acid (VITAMIN C) 1,000 mg tablet Take 2 tablets (2,000 mg total) by mouth daily 3 aspirin 81 mg chewable tablet Take 1 tablet (81 mg total) by mouth daily 30 tablet 08/12/2022 3 dapagliflozin (FARXIGA) 10 mg tablet Take 1 tablet (10 mg total) by mouth daily 30 tablet 08/06/2022 3 dapagliflozin (FARXIGA) 10 mg tablet Take 1 tablet (10 mg total) by mouth daily 30 tablet 08/11/2022 3 empagliflozin (JARDIANCE) 10 mg tablet Take 1 tablet (10 mg total) by mouth daily 30 tablet 08/06/2022 3 Entresto 24-26 mg tablet 01/11/2020 3 fexofenadine (WALESKA) 180 mg tablet Take 1 tablet (180 mg total) by mouth daily 3 fluticasone propionate (FLONASE) 50 mcg/actuation nasal spray Administer 2 sprays into each nostril daily 16 g 07/23/2019 3 furosemide (LASIX) 20 mg tablet [...] mg total) by mouth nightly 30 tablet 11 08/11/2022 3 spironolactone (ALDACTONE) 25 mg tablet Take 1 tablet (25 mg total) by mouth daily 90 tablet 1 09/19/2021 3 spironolactone (ALDACTONE) 25 mg tablet Take 0.5 tablets (12.5 mg total) by mouth daily 15 tablet 11 08/12/2022 3 documented as of this encounter Discharge Disposition Disposition Code Departure Means Destination Discharge to home or self care documented in this encounter Plan of Treatment Not on file documented as of this encounter Procedures Procedure Name Priority Date/Time Associated Diagnosis Comments FL MODIFIED BARIUM SWALLOW W VIDEO IP Routine 08/08/2022 2:52 PM CDT documented in this encounter Visit Diagnoses Not on filedocumented in this encounter Administered Medications Inactive Administered Medications - up to 3 most recent administrations Medication Order MAR Action Action Date Dose Rate Site barium sulfate (VARIBAR PUDDING) 40 % (w/v), 30% (w/w) pudding oral, Once in imaging, contrast, Starting on [place] 08/08/22 at 1453, For 1 dose, Pre-Op/Floor Contrast Given 08/08/2022 2:43 PM CDT barium sulfate (VARIBAR THIN LIQUID) 81 % (w/w) thin liquid oral, Once in imaging, contrast, Starting on [place] 08/08/22 at 1453, For 1 dose, Pre-Op/Floor Contrast Given 08/08/2022 2:40 PM CDT documented in this encounter Care Teams Wharf Builder Relationship Specialty Start Date End Date Jaleel Mcgovern MD PCP - General Family Practice 07/18/22 Reynaldo Flannery DO Consulting Physician Cardiology 09/26/17 Guanakito Holland MD Consulting Physician Cardiovascular Disease 07/29/18 documented as of this encounter
--- OUTSIDE RECORDS SUMMARY | 2024-04-11 06:37 | XMS_ITS | Encounter Summary ---
Author Organization [facility] Address [address] [place] [address] Care Team Providers Care Ladle Operator Name Role Phone Reynaldo Flannery DO Unavailable [phone] Guanakito Holland MD Unavailable [phone] Jaleel Mcgovern MD Primary Care Provider [phone] Encounter Details Date Type Department Care Team (Late st Contact Info) Description 07/19/2022 Orders Only [facility] Cardiology [address] [facility] [facility] [address] [place] [address] Provider, MD Rosalinda [address] [place] [id number] Social History Tobacco Use Types Packs/Day Years [...] and Family Once a week 03/05/2019 Attends L[employer] Services Not on file 03/05 Active Member [...] on file 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 Gender Identity Female 10/09/2022 9:08 AM CDT Sexual Orientation Choose not to disclose 2022 9:08 AM CDT documented as of this encounter Plan of Treatment Not on file documented as of this encounter Procedures Procedure Name Priority Date/Time Associated Diagnosis Comments LIPID PANEL Routine 03/07/2022 documented in this encounter Results * Lipid panel (03/07/2022) Blood us Historical Provider LAB BLOOD ORDERABLES Roshni l Result documented in this encounter Visit Diagnoses Not on filedocumented in this encounter Care Teams Ladle Operator Relationship Specialty Start Date End Date Jaleel Mcgovern MD PCP - General Family Practice 07/18/22 Reynaldo Flannery DO Consulting Physician Cardiology 09/26/17 Guanakito Holland MD Consulting Physician Cardiovascular Disease 07/29/18 documented as of this encounter
--- OUTSIDE RECORDS SUMMARY | 2024-04-11 06:37 | XMS_ITS | Encounter Summary ---
Author Organization [facility] Address [address] [address] Care Team Providers Care Multimedia Coordinator Name Role Phone Ronald Castrejon MD Primary Care Provider [phone] Reynaldo Flannery DO Unavailable [phone] Guanakito Holland MD Unavailable [phone] Reason for Referral * Cardiology (Routine) - Closed Specialty Diagnoses / Procedures Referred By Contac t Referred To Contact Diagnoses Paroxysmal atrial fibrillation (CMS/HCC) (HCC) Sick sinus syndrome (CMS/HCC) (HCC) Cardiac pacemaker in situ Procedures DEVICE CHECK - REMOTE Mannie Hernandez MD [address] [facility] [address] [place] [address] Phone: tel: fax: [facility] Referral ID Status Reason Start Date Expiration Date Visits Re quested Visits Authorized [id number] Closed 09/19/2021 07/23/2023 1 1 * Cardiology (Routine) - Closed Specialty Diagnoses / Procedures Referred By Contac t Referred To Contact Diagnoses Paroxysmal atrial fibrillation (CMS/HCC) (HCC) Sick sinus syndrome (CMS/HCC) (HCC) Cardiac pacemaker in situ Procedures DEVICE CHECK - REMOTE Mannie Hernandez MD [address] [place] [address] Phone: tel: fax: [facility] Referral ID Status Reason Start Date Expiration Date Visits Re quested Visits Authorized [id number] Closed 09/19/2021 04/24/2023 1 1 * Cardiology (Routine) - Closed Specialty Diagnoses / Procedures Referred By Contac t Referred To Contact Diagnoses Paroxysmal atrial fibrillation (CMS/HCC) (HCC) Sick sinus syndrome (CMS/HCC) (HCC) Cardiac pacemaker in situ Procedures DEVICE CHECK - REMOTE Mannie Hernandez MD [address] [place] [address] Phone: tel: fax: [facility] Referral ID Status Reason Start Date Expiration Date Visits Re quested Visits Authorized [id number] Closed 09/19/2021 03/21/2023 1 1 * Cardiology (Routine) - Closed Specialty Diagnoses / Procedures Referred By Contac t Referred To Contact Diagnoses Paroxysmal atrial fibrillation (CMS/HCC) (HCC) Sick sinus syndrome (CMS/HCC) (HCC) Cardiac pacemaker in situ Procedures DEVICE CHECK - REMOTE Mannie Hernandez MD [address] [place] [address] Phone: tel: fax: [facility] Referral ID Status Reason Start Date Expiration Date Visits Re quested Visits Authorized [id number] Closed 09/19/2021 03/21/2023 1 1 * Cardiology (Routine) - Closed Specialty Diagnoses / Procedures Referred By Contac t Referred To Contact Diagnoses Paroxysmal atrial fibrillation (CMS/HCC) (HCC) Sick sinus syndrome (CMS/HCC) (HCC) Cardiac pacemaker in situ Procedures DEVICE CHECK - REMOTE Mannie Hernanedz MD [address] [facility] [address] [place] [address] Phone: tel: fax: [facility] Referral ID Status Reason Start Date Expiration Date Visits Re quested Visits Authorized [id number] Closed 09/19/2021 03/21/2023 1 1 * Cardiology (Routine) - Closed Specialty Diagnoses / Procedures Referred By Contac t Referred To Contact Diagnoses Paroxysmal atrial fibrillation (CMS/HCC) (HCC) Sick sinus syndrome (CMS/HCC) (HCC) Cardiac pacemaker in situ Procedures DEVICE CHECK - REMOTE Mannie Hernandez MD [address] [facility] [address] [place] [address] Phone: tel: fax: [facility] Referral ID Status Reason Start Date Expiration Date Visits Re quested Visits Authorized [id number] Closed 09/19/2021 03/21/2023 1 1 * Cardiology (Routine) - Closed Specialty Diagnoses / Procedures Referred By Contac t Referred To Contact Diagnoses Paroxysmal atrial fibrillation (CMS/HCC) (HCC) Sick sinus syndrome (CMS/HCC) (HCC) Cardiac pacemaker in situ Procedures DEVICE CHECK - IN OFFICE Mannie Hernandez MD [address] [place] [address] Phone: tel: fax: [facility] Referral ID Status Reason Start Date Expiration Date Visits Re quested Visits Authorized [id number] Closed 09/19/2021 10/19/2022 1 1 * Cardiology (Routine) - Closed Specialty Diagnoses / Procedures Referred By Contac t Referred To Contact Diagnoses Paroxysmal atrial fibrillation (CMS/HCC) (HCC) Sick sinus syndrome (CMS/HCC) (HCC) Cardiac pacemaker in situ Procedures DEVICE CHECK - IN OFFICE Mannie Hernandez MD [address] [place] [address] Phone: tel: fax: [facility] Referral ID Status Reason Start Date Expiration Date Visits Re quested Visits Authorized [id number] Closed 09/19/2021 10/29/2023 1 1 * Cardiology (Routine) - Closed Specialty Diagnoses / Procedures Referred By Contac t Referred To Contact Diagnoses Paroxysmal atrial fibrillation (CMS/HCC) (HCC) Sick sinus syndrome (CMS/HCC) (HCC) Cardiac pacemaker in situ Procedures DEVICE CHECK - IN OFFICE Mannie Hernandez MD [address] [place] [address] Phone: tel: fax: [facility] Referral ID Status Reason Start Date Expiration Date Visits Re quested Visits Authorized [id number] Closed 09/19/2021 10/19/2022 1 1 * Cardiology (Routine) - Closed Specialty Diagnoses / Procedures Referred By Contac t Referred To Contact Diagnoses Paroxysmal atrial fibrillation (CMS/HCC) (HCC) Sick sinus syndrome (CMS/HCC) (HCC) Cardiac pacemaker in situ Procedures DEVICE CHECK - IN OFFICE Mannie Hernandez MD [address] [place] [address] Phone: tel: fax: [facility] Referral ID Status Reason Start Date Expiration Date Visits Re quested Visits Authorized [id number] Closed 09/19/2021 10/19/2022 1 1 Encounter Details Date Type Department Care Team (Late st Contact Info) Description 09/19/2021 Orders Only [facility] Cardiology [address] [place] [phone] Mannie Hernandez MD [address] [facility] [address] [place] [address] Paroxysmal atrial fibrillation (CMS/HCC) (HCC) (Primary Dx); Sick sinus syndrome (CMS/HCC) (HCC); Cardiac pacemaker [...] and Family Once a week 03/05/2019 Attends [employer] Services Not on file 03/05 Active Member [...] on file Legal Sex Female 11:18 AM 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 Gender Identity Female 10/09/2022 9:08 AM CDT Sexual Orientation Choose not to disclose 2022 9:08 AM CDT documented as of this encounter Miscellaneous Notes * Addendum Note - Patricia Milan RN - 09/19/2021 8:01 AM CDTAddended by: PATRICIA MILAN on: 09/19/2021 12:33 PM Modules accepted: Orders documented in this encounter Plan of Treatment Scheduled Orders Name Type Priority Associated Diagnoses Orde r Schedule DEVICE CHECK - IN OFFICE Cardiac Services Routine Paroxysmal atrial fibrillation (CMS/HCC) (HCC) Sick sinus syndrome (CMS/HCC) (HCC) Cardiac pacemaker in situ Expected: 09/19/2021, Expires: 03/23/2027 DEVICE CHECK - IN OFFICE Cardiac Services Routine Paroxysmal atrial fibrillation (CMS/HCC) (HCC) Sick sinus syndrome (CMS/HCC) (HCC) Cardiac pacemaker in situ Expected: 09/19/2021, Expires: 03/23/2027 documented as of this encounter Results * DEVICE CHECK - IN OFFICE (10/23/2023 10:09 AM CDT) Anatomical Region Laterality Modality Other Narrative 11/17/2023 3:19 PM CDT [employer] Dual Pacemaker. Dx; SSS, Afib. DOI 07/29/2018-Dr Holland. RA Lead replaced 09/14/18. AV Node Ablation 12/2018. [employer] remote monitoring. Office VVI-CLS BIV Pacemaker ICD device interrogation performed by [employer] company personal service representative. Transmission attached. Stable lead impedances, pacing and sensing thresholds. Charge time and Shock impedance. Battery voltage- Ok, 4.0 years 4 months remaining to LEANA. CRYPTOGRAPHER-93 %. Presenting rhythm- Vpaced. No Ventricular arrhythmias detected. ?? Medication: Eliquis, Programming changes made to device settings. See scanned report. [employer] remote f/u 10/27/2023. Office device f/u expected in 1 year. Mannie Hernandez MD [facility] PROC EDURES Final Result * DEVICE CHECK - REMOTE (07/22/2023 10:25 AM CDT) Anatomical Region Laterality Modality Other Narrative 10/14/2023 12:17 PM CDT [employer] Dual Pacemaker. Dx; SSS, Afib. DOI 07/29/2018-Dr Holland. RA Lead replaced 09/14/18. AV Node Ablation 12/2018. [employer] remote monitoring. Routine VVI Pacemaker Remote. Transmission attached. Battery status-Ok, 55% remaining to LEANA. Stable lead impedances, pacing and sensing thresholds. Presenting rhythm: Vpaced. CRYPTOGRAPHER-93 %. No Ventricular arrhythmias detected. ?? Medication: Eliquis, Toprol XL. Office pacemaker f/u and ROV with Dr Hernandez scheduled 10/23/2023. Patricia Milan RN Mannie Hernandez MD [facility] PROC EDURES Final Result * DEVICE CHECK - REMOTE (04/15/2023 2:29 PM 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) Anatomical Region Laterality Modality Other Narrative 06/10/2023 1:32 PM CDT [employer] Dual Pacemaker. Dx; SSS, Afib. DOI 07/29/2018-Dr Holland. RA Lead replaced 09/14/18. AV Node Ablation 12/2018. [employer] remote monitoring. Routine VVI Pacemaker Remote. Transmission attached. Battery status-Ok, 55% remaining to LEANA. Stable lead impedances, pacing and sensing thresholds. Presenting rhythm: Vpaced. CRYPTOGRAPHER-92 %. No Ventricular arrhythmias detected. ?? Medication: Eliquis, Toprol XL. Follow up: [employer] remote 07/22/2023. Patricia Milan RN Mannie Hernandez MD [facility] PROC EDURES Final Result * DEVICE CHECK - REMOTE (01/08/2023 11:29 AM CDT) Anatomical Region Laterality Modality Other Narrative 02/05/2023 8:02 AM 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 [employer] Dual Pacemaker. Dx; SSS, Afib. DOI 07/29/2018-Dr Holland. RA Lead replaced 09/14/18. AV Node Ablation 12/2018. [employer] remote monitoring. Routine VVI Pacemaker Remote. Transmission attached. Battery status-Ok, 55% remaining to LEANA. Stable lead impedances, pacing and sensing thresholds. Presenting rhythm: Vpaced. CRYPTOGRAPHER-90 %. No Ventricular arrhythmias detected. ?? Medication: Eliquis, Toprol XL. Follow up: [employer] remote 04/15/2023. Patricia Milan RN Mannie Hernandez MD [facility] PROC EDURES Final Result * DEVICE CHECK - IN OFFICE (10/02/2022 [...] VVI 30 bpm. Consider Pacemaker Dependent. AP-1%, CRYPTOGRAPHER-84%. AF [place] 100%. No ventricular high rate episodes noted. 10-PMT. Medications; Eliquis, Toprol XL. Programmed to VVI-CLS d/t Chronic Afib. See scanned report. Office pacemaker f/u 10/22/2023. [employer] remote f/u 01/07/2023. Patricia Milan RN Mannie Hernandez MD [facility] PROC EDURES Final Result * DEVICE CHECK - REMOTE (07/02/2022 2:36 PM CDT) Anatomical Region Laterality Modality Other Narrative 10/08/2022 10:17 AM CDT [employer] Dual Pacemaker. Dx; SSS, Afib. DOI 07/29/2018-Dr Holland. RA Lead replaced 09/14/18. AV Node Ablation 12/2018. Routine Pacemaker remote. Normal device function. Battery function-Ok, 60% remaining battery longevity to LEANA. Appropriate lead measurements noted. Presenting rhythm-Afib Vpaced. AP-1%, CRYPTOGRAPHER-86%. AF burden 100%. No Ventricular high rate episodes noted. Medications; Eliquis, Toprol XL, Lasix, Aldactone. See scanned report. Office pacemaker f/u 10/02/2022. Patricia Milan, BRAYAN Mannie Hernandez MD [facility] PROC EDURES Final Result * DEVICE CHECK - REMOTE (03/26/2022 10:15 AM 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) Anatomical Region Laterality Modality Other Narrative 06/19/2022 9:07 AM CDT [employer] Dual Pacemaker. Dx; SSS, Afib. DOI 07/29/2018-Dr Holland. RA Lead replaced 09/14/18. AV Node Ablation 12/2018. Routine Pacemaker remote. Normal device function. Battery function-Ok, 60% remaining battery longevity to LEANA. Appropriate lead measurements noted. Presenting rhythm-Afib Vpaced. AP-1%, CRYPTOGRAPHER-90%. AF burden 100%. No Ventricular high rate episodes noted. Medications; Eliquis, Entresto, Lasix, Aldactone. See scanned report. Office pacemaker f/u 10/02/2022. [employer] remote f/u 07/02/2022. Patricia Milan, RN Mannie Hernandez MD [facility] PROC EDURES Final Result * DEVICE CHECK - REMOTE (12/25/2021 4:11 PM CDT) Anatomical Region Laterality Modality Other Narrative 02/05/2022 8:47 AM 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 [employer] Dual Pacemaker. Dx; SSS, Afib. DOI 07/29/2018-Dr Holland. RA Lead replaced 09/14/18. AV Node Ablation 12/2018. Routine Pacemaker remote. Normal device function. Battery function-Ok, 65% remaining battery longevity to LEANA. Appropriate lead measurements noted. Presenting rhythm-Afib Vpaced. AP-2%, CRYPTOGRAPHER-92%. AF burden 100%. No Ventricular high rate episodes noted. Medications; Eliquis, Entresto, Lasix, Aldactone. See scanned report. Office pacemaker f/u 10/02/2022. [employer] remote f/u 03/26/2022. Mannie Hernandez MD [facility] CARDIAC SERVICES PROC [facility] Final Result documented in this encounter Visit Diagnoses Diagnosis Paroxysmal atrial fibrillation (CMS/HCC) (HCC)- Primary Atrial fibrillation Sick sinus syndrome (CMS/HCC) (HCC) Sinoatrial node dysfunction Cardiac pacemaker in situ Paroxysmal atrial fibrillation (CMS/HCC) (HCC) Atrial fibrillation Sick sinus syndrome (CMS/HCC) (HCC) Sinoatrial node dysfunction Cardiac pacemaker in situ Paroxysmal atrial fibrillation (CMS/HCC) (HCC) Atrial fibrillation Sick sinus syndrome (CMS/HCC) (HCC) Sinoatrial node dysfunction Cardiac pacemaker in situ Paroxysmal atrial fibrillation (CMS/HCC) (HCC) Atrial fibrillation Sick sinus syndrome (CMS/HCC) (HCC) Sinoatrial node dysfunction Cardiac pacemaker in situ Paroxysmal atrial fibrillation (CMS/HCC) (HCC) Atrial fibrillation Sick sinus syndrome (CMS/HCC) (HCC) Sinoatrial node dysfunction Cardiac pacemaker in situ Paroxysmal atrial fibrillation (CMS/HCC) (HCC) Atrial fibrillation Sick sinus syndrome (CMS/HCC) (HCC) Sinoatrial node dysfunction Cardiac pacemaker in situ Paroxysmal atrial fibrillation (CMS/HCC) (HCC) Atrial fibrillation Sick sinus syndrome (CMS/HCC) (HCC) Sinoatrial node dysfunction Cardiac pacemaker in situ Paroxysmal atrial fibrillation (CMS/HCC) (HCC) Atrial fibrillation Sick sinus syndrome (CMS/HCC) (HCC) Sinoatrial node dysfunction Cardiac pacemaker in situ Paroxysmal atrial fibrillation (CMS/HCC) (HCC) Atrial fibrillation Sick sinus syndrome (CMS/HCC) (HCC) Sinoatrial node dysfunction Cardiac pacemaker in situ documented in this encounter Care Teams Multimedia Coordinator Relationship Specialty Start Date End Date Ronald Castrejon MD PCP - General 06/21/16 07/17/22 Reynaldo Flannery DO Consulting Physician Cardiology 09/26/17 Guanakito Holland MD Consulting Physician Cardiovascular Disease 07/29/18 documented as of this encounter
--- OUTSIDE RECORDS SUMMARY | 2024-04-11 06:37 | XMS_ITS | Encounter Summary ---
Author Organization [facility] Address [address] [place] [address] Care Team Providers Care Fruit Or Nut Farm Worker Name Role Phone Reynaldo Flannery DO Unavailable [phone] Guanakito Holland MD Unavailable [phone] Jaleel Mcgovern MD Primary Care Provider [phone] Encounter Details Date Type Department Care Team (Latest Contact Info) Description 08/03/2022 3:42 PM CDT - 08/03/2022 11:59 PM CDT Hospital Encounter [facility] Emergency, Room R Discharge Disposition: Discharge to [...] and Family Once a week 03/05/2019 Attends Shinto Services Not on file 03/05 Active Member [...] on file Legal 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
--- OUTSIDE RECORDS SUMMARY | 2024-04-11 06:37 | XMS_ITS | Encounter Summary ---
Author Organization [facility] Address [address] [facility] [address] [place] [address] Care Team Providers Care Double Spindle Shaper Operator Name Role Phone Ronald Castrejon MD Primary Care Provider [phone] Reynaldo Flannery DO Unavailable [phone] Guanakito Holland MD Unavailable [phone] Reason for Visit * Cardiology (Routine) - Closed Specialty Diagnoses / Procedures Referred By Contac t Referred To Contact Diagnoses Paroxysmal atrial fibrillation (CMS/HCC) (HCC) Sick sinus syndrome (CMS/HCC) (HCC) Cardiac pacemaker in situ Procedures DEVICE CHECK - REMOTE Mannie Hernandez MD [address] [facility] [address] [place] [address] Phone: tel: fax: [facility] Referral ID Status Reason Start Date Expiration Date Visits Re quested Visits Authorized [id number] Closed 09/19/2021 03/21/2023 1 1 Encounter Details Date Type Department Care Team (Latest Contact Info) Description 12/25/2021 7:00 AM CDT Ancillary Procedure [facility] Cardiology [facility] [address] [place] [phone] Paroxysmal atrial fibrillation (CMS/HCC) (HCC); Sick sinus [...] and Family Once a week 03/05/2019 Attends Alevism Services Not on file 03/05 Active Member [...] file Legal Sex Female 11:18 AM 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 Gender Identity Female 10/09/2022 9:08 AM CDT Sexual Orientation Choose not to disclose 2022 9:08 AM CDT documented as of this encounter Plan of Treatment Not on file documented as of this encounter Procedures Procedure Name Priority Date/Time Associated Diagnosis Comments DEVICE CHECK - REMOTE Routine 12/25/2021 4:11 PM CDT Paroxysmal atrial fibrillation (CMS/HCC) (HCC) Sick sinus syndrome (CMS/HCC) (HCC) Cardiac pacemaker in situ documented in this encounter Results * DEVICE CHECK - REMOTE (12/25/2021 4:11 PM CDT) Anatomical Region Laterality Modality Other Narrative 02/05/2022 8:47 AM 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 [employer] Dual Pacemaker. Dx; SSS, Afib. DOI 07/29/2018-Dr Holland. RA Lead replaced 09/14/18. AV Node Ablation 12/2018. Routine Pacemaker remote. Normal device function. Battery function-Ok, 65% remaining battery longevity to LEANA. Appropriate lead measurements noted. Presenting rhythm-Afib Vpaced. AP-2%, [employer] SALES MANAGER-92%. AF burden 100%. No Ventricular high rate [...] situ documented in this encounter Care Teams Double Spindle Shaper Operator Relationship Specialty Start Date End Date Ronald Castrejon MD PCP - General 06/21/16 07/17/22 Reynaldo Flannery DO Consulting Physician Cardiology 09/26/17 Guanakito Holland MD Consulting Physician Cardiovascular Disease 07/29/18 documented as of this encounter
--- OUTSIDE RECORDS SUMMARY | 2024-04-11 06:37 | XMS_ITS | Encounter Summary ---
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 Encounter Details Date Type Department Care Team (Late st Contact Info) Description 07/18/2022 1:45 PM CDT Office Visit [facility] Cardiology [address] [place] [address] Mannie Hernandez MD [address] [facility] [address] [place], [place] [id number] Cardiac pacemaker in situ (Primary Dx); Paroxysmal atrial fibrillation (CMS/HCC) (HCC); History of coronary artery stent placement; Sick sinus syndrome (CMS/HCC) (HCC) Social History [...] and Family Once a week 03/05/2019 Attends [employer] Not on file 03/05 Active Member [...] on file Legal Sex Female 11:18 AM 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 Gender Identity Female 10/09/2022 9:08 AM CDT Sexual Orientation Choose not to disclose 2022 9:08 AM CDT documented as of this encounter Last Filed Vital Signs Vital Sign Reading Time Taken Comments Blood Pressure 94/66 07/18/2022 1:42 PM CDT Pulse 66 07/18/2022 1:42 PM CDT Temperature - - Respiratory Rate - - Oxygen Saturation 96% 07/18/2022 1:42 PM CDT Inhaled Oxygen Concentration - - Weight 69.4 kg (153 lb) 07/18/2022 1:42 PM CDT Height 154.9 cm (5' 1 ) 07/18/2022 1:42 PM CDT Body Mass Index 28.91 07/18/2022 1:42 PM CDT documented in this encounter Progress Notes * Mannie Hernandez MD - 07/18/2022 1:45 PM CDT [facility] FOLLOW UP 07/18/2022 Abena Giron is a 82 y.o. female who presents for follow up of coronary artery disease, previousinfarction, atrial fibrillation and previously implanted pacemaker device. This is a patient who was seen by me in consultation in 2021 when she transferred her care from her previous adjunct trainer our practice. Her history dates back to 2014 when she sustained a myocardial infarction and underwent percutaneous revascularization up in [place]. 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 She received implantation of permanent pacemaker device and according to the previous notes an AV node ablation as well. Subsequently her pacemaker checks demonstrate 100% AF burden with ventricular pacing. She is anticoagulated with apixaban. She presents today for scheduled office follow-up annually. card.ioronik pacemaker checks demonstrate normal device function. She has about 60% battery capacity remaining. Overall she is doing very welland describes no significant cardiac symptomatology. Her primary care performed labs including a LDL cholesterol which was unfavorable at 139. We talked about this in some detail. She was then clear that she will not agree to take any additional anti-lipid medication. If she is not agreeable to having this treated I am not sure why it is being checked REVIEW OF SYSTEMS General ROS: negative for [...] and rash HOME MEDICATIONS Current Outpatient Medications: apixaban (ELIQUIS) 5 mg tablet, take 1 tablet by oral route 2 times every day, Disp: 0, Rfl: 0 ascorbic acid (VITAMIN C) 1,000 mg tablet, Take 2 tablets (2,000 mg total) by mouth daily, Disp: , Rfl: cholecalciferol (VITAMIN D-3) 2,000 unit tablet, take 1 tablet by oral route every day, Disp: 90, Rfl: 3 cyanocobalamin (Vitamin B-12) 100 mcg tablet, Take 1 tablet (100 mcg total) by mouth daily, Disp: ,Rfl: fexofenadine (WALESKA) 180 mg tablet, Take 1 tablet (180 mg total) by mouth daily, Disp: , Rfl: furosemide (LASIX) 20 mg tablet, Take 1 tablet (20 mg total) by mouth daily, Disp: 90 tablet, Rfl: 1 spironolactone (ALDACTONE) 25 mg tablet, Take 1 tablet (25 mg total) by mouth daily, Disp: 90 tablet, Rfl: 1 ALPRAZolam (XANAX) 0.25 mg tablet, Take 1 tablet (0.25 mg total) by mouth 2 (two) times a day as needed for anxiety (Patient not taking: Reported on 08/28/2021), Disp: 60 tablet, Rfl: 1 artificial tears (SYSTANE) 0.3 % gel, Apply 1 drop to both eyes 4 (four) times a day as needed (Patient not taking: Reported on 07/18/2022), Disp: , Rfl: Entresto 24-26 mg tablet, , Disp: , Rfl: fluticasone propionate (FLONASE) 50 mcg/actuation nasal spray, Administer 2 sprays into each nostril daily, Disp: 16 g, Rfl: 3 LABS AND OTHER DIAGNOSTIC TESTS Lab Results Component Value Date CHOL 278 [...] CHOLHDL 5 07/29/2018 CHOLHDL 5.5 (H) 12/09/2017 Lab Results Component Value Date WBC 8.2 01/06/2020 HGB 14.9 01/06/2020 HCT 46.0 (H) 01/06/2020 MCV 97.0 (H) 01/06/2020 No lab exists for component: LABALBU PHYSICAL EXAM Vitals BP 94/66 (BP Location: Left arm, Patient Position: Sitting) Pulse 66 Ht 154.9 cm (5' 1 ) Wt 69.4 kg (153 lb) LMP (LMP Unknown) SpO2 96% BMI 28.91 kg/m?? Physical Examination: General appearance - alert, [...] ASSESSMENT Abena was seen today for atrial fibrillation. Diagnoses and all orders for this visit: Cardiac pacemaker in situ Paroxysmal atrial fibrillation (CMS/HCC) (HCC) History of coronary artery stent placement Sick sinus syndrome (CMS/HCC) (HCC) PLAN/RECOMMENDATIONS No change in medication and a continue to see her at 6 month intervals and provide pacemaker surveillance follow-up. Patient has a history of coronary disease and is unwilling to take any medication for her cholesterol Follow-up 6 months or p.r.n. Mannie Hernandez MD documented in this encounter Plan of Treatment Not on file documented as of this encounter Visit Diagnoses Diagnosis Cardiac pacemaker in situ- Primary Paroxysmal atrial fibrillation (CMS/HCC) (HCC) Atrial fibrillation History of coronary artery stent placement Sick sinus syndrome (CMS/HCC) (HCC) Sinoatrial node dysfunction documented in this encounter Discontinued Medications Medication Sig Discontinue Reason Start Date End Da te zinc 50 mg tablet Take 50 mg by mouth daily 07/18/2022 turmeric root extract 500 mg capsule Take 1 capsule by mouth daily 07/18/2022 ondansetron (ZOFRAN) 4 mg tablet 12/29/2019 07/18/2022 MAGNESIUM ORAL Take 2 capsules by mouth daily 07/18/2022 Lactobacillus acidophilus 10 billion cell capsule Take 1 capsule by mouth daily 07/18/2022 documented as of this encounter Care Teams [employer]ing Machine Operator Relationship Specialty Start Date End Date Jaleel Mcgovern MD PCP - General Family Practice 07/18/22 Reynaldo Flannery DO Consulting Physician Cardiology 09/26/17 Guanakito Holland MD Consulting Physician Cardiovascular Disease 07/29/18 documented as of this encounter
--- OUTSIDE RECORDS SUMMARY | 2024-04-11 06:37 | XMS_ITS | Encounter Summary ---
Author Organization [facility] Healthcare Address [address] [place] [address] Care Team Providers Care Landscaper Name Role Phone Reynaldo Flannery DO Unavailable [phone] Guanakito Holland MD Unavailable [phone] Jaleel Mcgovern MD Primary Care Provider [phone] Reason for Visit * Auth/Cert (Routine) Specialty Diagnoses / Procedures Referred By Contac t Referred To Contact Diagnoses Acute CVA (cerebrovascular accident) (HCC) Left CVA Procedures ADMIT TO INPATIENT REHAB Referral ID Status Reason Start Date Expiration Date Visits Re quested Visits Authorized [id number] 1 1 Encounter Details Date Type Department Care Team (Latest Contact Info) Description 08/12/2022 11:56 AM CDT - 08/23/2022 10:00 AM CDT Hospital Encounter [facility] Physical Medicine and Rehabilitation [address] [place] [address] Op[place]ace MD [id number] [facility] [address] [address] Acute CVA (cerebrovascular accident) (HCC) (Primary Dx) Discharge Disposition: Discharge to home, home health skilled care Social History Tobacco Use Types Packs/Day [...] Recorded Patient Health Questionnaire-2 Score 0 08/23/2022 [facility] - [...] on file Legal Sex Female 11:18 AM [employer] Gender Identity Female 10/09/2022 9:08 AM CDT Sexual Orientation Choose not to disclose 2022 9:08 AM CDT documented as of this encounter Last Filed Vital Signs Vital Sign Reading Time Taken Comments Blood Pressure 113/51 08/23/2022 7:08 AM CDT Pulse 68 08/23/2022 7:08 AM CDT Temperature 36.6 ??C (97.8 ??F) 08/23/2022 7:08 AM CD T Respiratory Rate 17 08/23/2022 7:08 AM CDT Oxygen Saturation 98% 08/23/2022 7:08 AM CDT Inhaled Oxygen Concentration - - Weight 68.5 kg (151 lb 0.2 oz) 08/19/2022 12:55 AM CDT Height 154.9 cm (5' 0.98 ) 08/12/2022 1:40 PM CD T Body Mass Index 28.55 08/12/2022 1:40 PM CDT documented in this encounter Discharge Summaries * Opal Mace MD - 08/23/2022 9:00 AM CDT DISCHARGE SUMMARY [facility] INPATIENT REHABIL[facility]ATION Admission Date: 08/12/2022 Discharge Date: 08/23/2022 Attending Physician: Admitting Provider: Opal Mace MD Discharge Provider: Opal Mace MD Primary Care Physician at Discharge: Jaleel Mcgovern MD [phone] Discharge Diagnoses: 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 Found to have M1 occlusion and transferred to [facility] for further management. She underwent emergent thrombectomy and was given TNK. Evaluated by speech and started on pureed diet. Therapies recommending acute rehab prior to return home with family. Met with patient and two of her four daughters today. She states the ride over was bumpy and has some pain in her bottom, otherwise no pain. Had a bowel movement before EMS arrived to pick her up. Has had purewick in. States she is not a big eater and does not like the pureed diet. Not sleeping well. Denies fever, chills, chest pain, shortness of breath, nausea, vomiting, constipation, diarrhea, dysuria. PLOF: Independent without device. Lives alone with 3 steps to enter. Has a cat named [employer]. Likes to cook. Daughters to help out at home including laundry that is in the basement. Hospital Course: Ms. Giron was admitted to acute rehab on 08/12. She participated and tolerated therapy well. Her blood pressure medications were adjusted. She was trialed on mechanical soft diet with speech therapywith some improvement in swallowing. Her daughters were present for family training. She is improved and stable for discharge home with home health therapy and close follow up. Physical Exam at Discharge: Discharge Condition: stable Pulse: 68 Resp: 17 BP: 113/51 Temp: 36.6 ??C (97.8 ??F) Weight: 68.5 kg (151 lb 0.2 oz) Discharge Physical Exam: General: no acute distress, in chair HEENT: normocephalic, trachea midline Heart: rrr Lungs: ctab GI: soft, nontender Neuro: alert, oriented, dysarthric Discharge Medications: Your medication list CONTINUE taking these medications apixaban 5 mg tablet 5 mg, oral, Every 12 hours scheduled Commonly known as: ELIQUIS aspirin 81 mg chewable tablet 81 mg, oral, Daily cholecalciferol 2000 unit tablet take 1 tablet by oral route every day Commonly known as: VITAMIN D-3 cyanocobalamin 100 mcg tablet 100 mcg, oral, Daily Commonly known as: Vitamin B-12 dapagliflozin 10 mg tablet 10 mg, oral, Daily Commonly known as: FARXIGA furosemide 40 mg tablet 40 mg, oral, Daily Commonly known as: LASIX metoprolol XL 25 mg extended release tablet 12.5 mg, oral, Daily Commonly known as: TOPROL-XL rosuvastatin 10 mg tablet 10 mg, oral, Nightly Commonly known as: CRESTOR spironolactone 25 mg tablet 12.5 mg, oral, Daily Commonly known as: ALDACTONE STOP taking these medications losartan 25 mg tablet Commonly known as: COZAAR Discharge Functional measures: OT Functional Mobility: 08/22 functional transfers: CGA/SBA OT Self Care: 08/22 Bathing:SBA/MIN verbal cues, oral hygiene/grooming/UB dressing/footwear: set-up, LB dressing: MIN, toileting:SBA SALES HUNTER Cognition: oriented x3 SALES HUNTER Communication: word finding deficits and dysarthria SALES HUNTER Swallowing: assessed at . Patient with oral dysphagia/puree diet/thin liquids. PT Functional Mobility: 08/22/22: Bed Mobility: independent in supine to/from sit and rolling bilaterally.increased time to get RLE onto bed. Transfers: CG/supervision for sit to/from stand with w/w, cues for R hand management on hand splint. CG assist for w/c to/from bed with w/w. Ambulation: CG assi st/supervision for 10' + 160' with w/w, good kimberly, decreased RLE clearance as patient fatigues but able to clear with conscious effort. Stairs: CG assist for 4 steps via side-stepping and BUE support on single handrail, good sequencing noted, daughter present able to be hands on. Reports no physical assist needed from her. Laboratory Results: Recent Labs Lab Units 08/19/22 0825 WBC K/cumm 9.6 HEMOGLOBIN g/dL 12.7 HEMATOCRIT % 40.4 PLATELETS K/cumm 372 Recent Labs Lab Units 08/19/22 0825 SODIUM mmol/L 142 POTASSIUM PLASMA mmol/L 3.9 CHLORIDE mmol/L 106 CO2 mmol/L 23 ANIONGAP mmol/L 13 GLUCOSE mg/dL 120 BUN SERUM mg/dL 25 CREATININE mg/dL 0.77 CALCIUM mg/dL 9.6 ALBUMIN g/dL 3.9 ALK PHOS Units/L 39* ALT Units/L 16 AST Units/L 27 BILIRUBIN TOTAL mg/dL 0.7 Recent Labs Lab Units 08/19/22 0825 GLUCOSE mg/dL 120 X-Ray and Diagnostic Test Results: None Procedures Performed: None Discharge Disposition/Instructions: The patient was discharged home in stable condition. The patient met her goals and those of the rehabilitation team for functional improvement. Will continue with home health physical therapy, occupational therapy, and speech therapy. Discharge Instructions: Diet Instructions Continue diet recommended per speech therapy (08/20-pureed w trials of mechanical soft w family/SALES HUNTER)with Ensure/Boost 1-2 times per day. Call Dietitian office at with any diet/nutrition related questions. Other Instructions Ambulatory referral to Home Health Service Line: Home Health Primary disciplines requested: Physical Therapy Speech Language Pathology Secondary disciplines requested: Occupational Therapy Home Health Services: Therapy to Eval/Tx Therapy instructions: ADL/ ladl management Caregiver training/eduction Evaluation/treatment Home safety evaluation Requested Start of Care Date: 24-48 hours Physician to follow patient's care (the person listed here will be responsible for signing ongoing orders): PCP I attest that I or another qualified licensed provider saw the patient 90 days prior to or 30 days post admission and this face to face encounter meets the necessary Home Health requirements. The face to face encounter occurred on (date): 08/22/2022 The encounter with the patient was in whole, or in part, for the following medical condition, whichis the primary reason for home health care. (List medical condition): CVA I certify that, based on my findings, the following services are medically necessary skilled home health services: Therapy to Eval/Tx Clinical findings that support the need for home care: Medical condition requiring skilled assessment/education Frequent falls requiring safety eval/therapy I certify that my clinical findings support patient's homebound status. Homebound criteria met because: Poor endurance Abnormal gait/unsteady balance resulting in fall risk Requires assistance of another to leave home safely Walker Height: 154.9 cm (5' 0.98 ) Weight: 68.5 kg (151 lb 0.2 oz) Type: Errol (142-160 cm tall) Bariatric (>300#): No Wheeled walker: Yes Wheel type: Front wheeled Leg extenders: No Patient has mobility limitation requiring use and patient is able to use walker; and functional mobility deficit is resolved by use of walker?: Yes DME services provided by: [facility] Follow up appointments: Future Appointments Date Time Provider Department Center 08/28/2022 10:30 AM Raudel Hardwick NP CAR CAM 8B Cardiology 10/02/2022 10:00 AM [facility] DEV[facility] HCG MV PROC Specialty 01/23/2023 2:15 PM Mannie Hernandez MD MG CAR MRYVL Specialty Contact Information for Follow-ups Jaleel Mcgovern MD Specialty: Family Practice, Family Medicine Relationship: PCP - General [address] [place] [address] Next Steps: Follow up on 08/27/2022 Instructions: PRECIOUS [place] to see pt @ 9:30 [facility] Home Care Services Specialty: Home Health and Hospice [address] [facility] [address] Next Steps: Follow up Instructions: start of care 08/27/22 Questions: Service Line: Home Health Primary disciplines requested: Physical Therapy Speech Language Pathology Secondary disciplines requested: Occupational Therapy Home Health Services: Therapy to Eval/Tx Therapy instructions: ADL/ ladl management Caregiver training/eduction Evaluation/treatment Home safety evaluation Requested Start of Care Date: 24-48 hours Physician to follow patient's care (the person listed here will be responsible for signing ongoing orders): PCP I attest that I or another qualified licensed provider saw the patient 90 days prior to or 30 days post admission and this face to face encounter meets the necessary Home Health requirements. The face to face encounter occurred on (date): 08/22/2022 The encounter with the patient was in whole, or in part, for the following medical condition, whichis the primary reason for home health care. (List medical condition): CVA I certify that, based on my findings, the following services are medically necessary skilled home health services: Therapy to Eval/Tx Clinical findings that support the need for home care: Medical condition requiring skilled assessment/education Frequent falls requiring safety eval/therapy I certify that my clinical findings support patient's homebound status. Homebound criteria met because: Poor endurance Abnormal gait/unsteady balance resulting in fall risk Requires assistance of another to leave home safely Referral Status: Some Visits Scheduled Jhony Sunshine MD Specialty: Cardiology, Cardiovascular Disease [address] [facility] [address] Next Steps: Follow up on 08/28/2022 Instructions: [address] 8th floor 08/28 @ 10:30 am Specialty Care Clinic Specialty: Neurology [address] [facility] 4[address] [facility] [address] Next Steps: Follow up Instructions: 08/22 On Recall list they will call to schedule an apt when openings become available Total time spent in care and discharge of patient: 40 minutes CC: PCP documented in this encounter Discharge Instructions * Discharge Instr - Diet* Cindi Hagen RD - 08/13/2022 12:59 PM CDT Continue diet recommended per speech therapy (08/20-pureed w trials of mechanical soft w family/SALES HUNTER)with Ensure/Boost 1-2 times per day. Call Dietitian office at with any diet/nutrition related questions. documented in this encounter Medications at Time of Discharge aspirin 81 mg chewable tabletIndications: prevention of thrombosis Take 1 tablet (81 mg total) by mouth daily 90 tablet 08/22/2022 cholecalciferol (VITAMIN D-3) 2,000 unit tabletIndications: Prevention [...] 12 (twelve) hours 180 tablet 08/22/2022 4 dapagliflozin (FARXIGA) 10 mg tabletIndications: Heart Failure Take 1 tablet (10 mg total) by mouth daily 90 tablet 08/22/2022 4 furosemide (LASIX) 40 mg tabletIndications: hypertension Take 1 tablet (40 mg total) by mouth daily 90 tablet 08/22/2022 3 metoprolol XL (TOPROL-XL) 25 mg extended release tabletIndications: hypertension Take 0.5 tablets (12.5 mg total) by mouth daily 45 tablet 08/22/2022 4 rosuvastatin (CRESTOR) 10 mg tabletIndications: hyperlipidemia Take 1 tablet (10 mg total) by mouth nightly 90 tablet 08/22/2022 4 documented as of this encounter Ordered Prescriptions Prescription Sig Dispense Quantity Refills Last Filled Start Date End Date spironolactone (ALDACTONE) 25 mg tabletIndications: hypertension Take 0.5 tablets (12.5 mg total) by mouth daily 45 tablet 08/22/2022 5 aspirin 81 mg chewable tabletIndications: prevention of thrombosis Take 1 tablet (81 mg total) by mouth daily 90 tablet 08/22/2022 5 rosuvastatin (CRESTOR) 10 mg tabletIndications: hyperlipidemia Take 1 tablet (10 mg total) by mouth nightly 90 tablet 08/22/2022 4 metoprolol XL (TOPROL-XL) 25 mg extended release tabletIndications: hypertension Take 0.5 tablets (12.5 mg total) by mouth daily 45 tablet 08/22/2022 4 furosemide (LASIX) 40 mg tabletIndications: hypertension Take 1 tablet (40 mg total) by mouth daily 90 tablet 08/22/2022 3 dapagliflozin (FARXIGA) 10 mg tabletIndications: Heart Failure Take 1 tablet (10 mg total) by mouth daily 90 tablet 08/22/2022 4 apixaban (ELIQUIS) 5 mg tabletIndications: atrial fibrillation Take 1 tablet (5 mg total) by mouth every 12 (twelve) hours 180 tablet 08/22/2022 4 documented in this encounter Discharge Disposition Disposition Code Departure Means Destination Comment s Discharge to home, home [facility] care [facility] documented in this encounter Progress Notes * Sara Phillips, RD - 08/23/2022 12:01 PM CDT Nutrition Assessment Pt meets criteria for severe protein calorie malnutrition due to decreased energy intake and weightloss, Present on Admission, reference ASPEN guidelines. RD plan: ordering Ensure Plus High PRO bid, encouraged po intakes. ASPEN/AND Malnutrition Screening ASPEN/AND Malnutrition Screening: Acute illness or injury severe Nutrition focused physical exam appropriate?: Nutrition focused physical exam not appropriate at this time Acute Illness/Injury Severe Energy Intake: < or equal to 50% energy intake compared to estimated energy needs > (or equalto) 5 days Weight Loss: > 2% in 1 week (3.7% Wt loss in 8 days) Body Fat: (ELIZABET) Muscle Mass: (ELIZABET) Patient Meets Criteria for Severe Malnutrition: Yes Reason for Assessment: Follow Up Encounter Date: 08/23/22 12:01 PM Nutrition Assessment and Plan: Patient is a 82 y.o. female. Admit Dx: Acute CVA (cerebrovascular accident) (HCC) [I63.9]. Admittedon 08/12/2022, current LOS is 11 days. Pt planned for follow up this date, pt had already discharged this AM, unable to speak with pt prior to discharge. Continue pureed diet and Ensure Plus High PRO bid. Encouraged po intakes and will continue to follow nutrition parameters and plans of care. Current diet order: Adult Diet Modified Consistency; Pureed Pt intake is inadequate. PO intakes: 25-75% Nutrition Diagnosis 1: Protein-Calorie Malnutrition - Severe Related to: Acute illness/injury Evidenced by: Patient interview, Inadequate energy intake, Weight loss Nutrition Diagnosis 2: Swallowing difficultyRelated to: Oral pharyngealEvidenced by: Speech eval, Patient interview Interventions: Assess for nutrition changes, Follow up per policy, Encouragement, Medical food supplement Monitoring and Evaluation: Appetite, Blood glucoses, PO intake, Supplement tolerance, Diet-related questions, Swallow function, Discharge plans, Food preferences, Weight changes, I/O, Labs, Plan of care Goals: Adequate nutrition to meet estimated needs by next assessment, Oral intake to meet 75% estimated nutritional needs by next assessment, Tolerance of medical food supplement by next assessment, Patient/caregiver able to teach back understanding of role of diet in disease process prior to discharge, Diet consistency appropriate for patient needs during stay Estimated needs: Total Kcal/kg Estimated Needs : 1917 based on Kcal/k. Type of Weight Used for Estimated Kcals:Current Total Protein Estimated Needs (gm): 82.2 Protein Needs Based on g/k.2 Type of Weight Used for Estimated Protein : Current. Estimated Fluid Needs Type of Weight Used for Estimated Fluid Needs: Current Fluid Needs Based on : 1 ml/kcal Total Fluid Estimated Needs: 1917 Objective Anthropometrics Weight: 68.5 kg (151 lb 0.2 oz) Admission Weight : 71.2 kg Weight Change: -2.70 kg (-5.95 lbs) IBW/kg (Calculated) : 47.6 kg Height: 154.9 cm (5' 0.98 ) Weight in (lb) to have BMI = 25: 132 BMI (Calculated): 28.5 BMI Classification: BMI 25.0 - 29.9 Overweight 3 Day I/O Summary 08/21 1899 - 08/23 0559 In: 380 [P.O.:380] Out: 0 Temp: 36.6 ??C (97.8 ??F) Past Medical History: Diagnosis Date Adiposity obesity [...] infarction (CMS/HCC) (HCC) 2014 Sleep apnea Vertigo Medications and Lab Review: Scheduled Meds: apixaban, 5 mg, oral, Q12H NAVEED aspirin, 81 mg, oral, Daily dapagliflozin, 10 mg, oral, Daily fluticasone propionate, 1 spray, each nostril, Daily furosemide, 40 mg, oral, Daily metoprolol XL, 12.5 mg, oral, Daily rosuvastatin, 10 mg, oral, Nightly spironolactone, 12.5 mg, oral, Daily Continuous Infusions: No results found for: SODIUM, POTASSIUM, BUNSER, CREATININE, PHOS, ALBUMIN, MAGNESIUM, CALCIUM, HDL, LDL, CHOLESTEROL, TRIGLYCERIDE Lab Results Component Value Date HGBA1C 6.0 (H) 08/03/2022 No results found for: GLUCOSE Nursing Assessment: Last BM Date: 08/20/22 Bowel Sounds (All Quadrants): Active Sai Scale Score: 19 Skin Integrity: Bruising, Redness Diet Instructions Continue diet recommended per speech therapy (08/20-pureed w trials of mechanical soft w family/SALES HUNTER)with Ensure/Boost 1-2 times per day. Call Dietitian office at with any diet/nutrition related questions. Nutrition Follow-Up : 08/23/[address],LD * Bell Moffett SALES HUNTER - 08/23/2022 8:41 AM CDT Speech Language/Pathology SPEECH LANGUAGE PATHOLOGY PROGRESS NOTE Patient's Name: Abena Giron : 1940 Age: 82 y.o. Time In: 810 Time Out: 833 Patient Active Problem List Diagnosis Hypertension Osteoarthritis Hyperlipidemia Coronary artery disease involving [place] coronary artery of [place] heart Paroxysmal atrial fibrillation (CMS/HCC) (HCC) Chronic GERD Anxiety Abdominal aortic aneurysm (AAA) without rupture (HCC) B12 deficiency Sick sinus syndrome (CMS/HCC) (HCC) GENNY (obstructive sleep apnea) History of coronary artery stent placement Cardiac pacemaker in situ 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) Ischemic stroke (HCC) Acute CVA (cerebrovascular accident) ([facility]) Severe malnutrition (CMS/HCC) Past Medical History: Diagnosis Date Adiposity obesity [...] Hyperlipidemia Hypertension Hypertension Myocardial infarction (CMS/HCC) (HCC) 2015 Sleep apnea Vertigo Past Surgical History: Procedure Laterality Date ABDOMINAL SURGERY CARDIAC PACEMAKER PLACEMENT CATARACT EXTRACTION W/ INTRAOCULAR LENS IMPLANT Bilateral CHOLECYSTECTOMY 1981 Cholecystectomy EYE SURGERY OTHER SURGICAL HISTORY Right 1980 partial oopherectomy OTHER SURGICAL HISTORY heart cath with stent 2013 [place]/[facility] OTHER SURGICAL HISTORY 2016 a.fib: loop recorder implanted OTHER SURGICAL HISTORY 2016 Atrial Fibrillation: Cardiovascular Intervention (ablation) SKIN BIOPSY SUBJECTIVE MENTAL STATUS: alert, being discharged today. PAIN: Pre Therapy Pain Level:0 Pain Location: Pain Intervention: Post Therapy Pain Level/Response to Intervention:0 OBJECTIVE PRECAUTIONS: fall SWALLOWING: tolerating mechanical soft diet/thin liquids. Patient afraid to eat certain foods. COGNITION: intact COMMUNICATION: dysarthria TREATMENT ACTIVITIES: reviewed soft food choices,oral exercises for home;speech at conversational level 80% EDUCATION: PATIENT/FAMILY EDUCATION: 2 daughters present and asked appropriate questions regarding dysphagia diet Response to Education: demonstrates understanding ASSESSMENT Activity Tolerance/Response to S.T.: good Barriers to learning: anxiety,communication Current status: moderate dysarthria,mild oral dysphagia Progress toward goals: Patient continues to progress toward previously set goals which remain appropriate at this time. PLAN Multi-Disciplinary Problems (from Speech Therapy) Active Problems Problem: Swallowing Start Date: 08/12/22 Goal Start Date Expected End Date End Date LTG - Patient will tolerate the least restrictive diet consistency to allow for safe consumption ofdaily meals 08/12/22 08/19/22 -- Problem: Communication/Motor Speech Start Date: 08/12/22 Goal Start Date Expected End Date End Date STG - Patient will participate in oral-motor exercises to improve strength 08/12/22 08/19/22 -- Goal Start Date Expected End Date End Date STG - Patient will use speech intelligibility Intervention at conversational level 08/12/22 08/19/22 -- Frequency of Treatment: patient being discharged today Recommendations: home with family and continued Speech to assist with diet upgrade. If this is the last note, consider this the discharge summary. * Raudel Ferrara, PT - 08/22/2022 3:38 PM CDT Physical Therapy PT PROGRESS NOTE Abena Giron 82 y.o. 1940 Past Medical History: Diagnosis Date Adiposity obesity [...] a.fib: loop recorder implanted OTHER SURGICAL HISTORY 2016 Atrial Fibrillation: Cardiovascular Intervention (ablation) SKIN BIOPSY Patient Active Problem List Diagnosis Hypertension Osteoarthritis Hyperlipidemia Coronary artery disease involving [place] coronary artery of [place] heart Paroxysmal atrial fibrillation (CMS/HCC) (HCC) Chronic GERD Anxiety Abdominal aortic aneurysm (AAA) without rupture (HCC) B12 deficiency Sick sinus syndrome (CMS/HCC) (HCC) GENNY (obstructive sleep apnea) History of coronary artery stent placement Cardiac pacemaker in situ 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) Ischemic stroke (HCC) Acute CVA (cerebrovascular accident) (HCC) Severe malnutrition (CMS/HCC) TIME IN: 1430 TIME OUT: 1515 SUBJECTIVE Patient very thankful towards staff and appreciative of her rehab journey. MENTAL STATUS/ORIENTATION: Alert and oriented x4 PAIN: Pre-therapy pain level: 0/10 Post-therapy pain level/response to intervention: 0/10 OBJECTIVE PRECAUTIONS: fall, aspiration APPEARANCE/POSTURE: sitting in w/c in gym, alarm activated, call light in reach, no apparent distress. VITAL SIGNS: no s/s of distress MOBILITY DOCUMENTATION: Bed Mobility: NT Transfers: CG/supervision for sit to/from stand with no AD and w/c to/from mat (all for FRANKS assessment) Ambulation: NT Stairs: NT Wheelchair management & propulsion: NT TREATMENT: Franks Balance Scale 1. Sitting to Standing: Able to stand without using hands and stabilize independently 2. Standing Unsupported: Able to stand safely for 2 minutes 3. Sitting with Back Unsupported but Feet Supported on Floor or on a Stool: Able to sit safely and securely for 2 minutes 4. Standing to Sitting: Uses back of legs against chair to control descent 5. Transfers: Able to transfer with verbal cueing and/or supervision 6. Standing Unsupported with Eyes Closed: Able to stand 10 seconds safely 7. Standing Unsupported with Feet Together: Able to place feet together independently and stand 1 minute safely 8. Reach Forward with Outstretched Arm While Standing: Can reach forward confidently 25 cm (10 inches) 9. Jewelry Designer Object from Floor from a Standing Position: Able to pickle cutter slipper but needs supervision 10. Turning to Look Behind Over Left and Right Shoulders While Standing: Looks behind from both sides and weight shifts well 11. Turn 360 Degrees: Needs assistance while turning 12. Place Alternate Foot on Step or Stool While Standing Unsupported: Able to complete greater than2 steps needs minimal assist 13. Standing Unsupported One Foot in Front: Able to place foot ahead independently and hold 30 seconds 14. Standing on One Leg: Tries to lift leg unable to hold 3 seconds but remains standing independently Franks Balance Score: 40 21 point improvement seen from initial evaluation. Appearance/Posture at end of treatment session: sitting in w/c in room, alarm activated, room air, call light in reach, daughter present, no apparent distress. RNAshleigh, given handoff. EDUCATION: PATIENT/FAMILY EDUCATION: FREDI Frank interpretation, safety at home, PT POC Response to Education: verbalizes understanding ASSESSMENT Activity tolerance/response to PT: Patient tolerated all activities, receptive to all education, and excited to go home. Barriers to learning: unchanged from AM Barriers to discharge: unchanged from AM Patient continues progressing toward previously set goals which remain appropriate at this time. PLAN Patient to be seen bid 5x/week to address previously established deficits and goals. * Azalea Martinez - 08/22/2022 1:44 PM CDT Occupational Therapy NOTE / SESSION TYPE: OT DISCHARGE SUMMARY PATIENT'S NAME: Abena Giron AGE / SEX: 82 y.o. / female ROOM: [place] [id number] : 1940 DATE: 08/22/22 TIME IN: 7 TIME OUT: 1419 Patient Active Problem List Diagnosis Hypertension Osteoarthritis Hyperlipidemia Coronary artery disease involving [place] coronary artery of [place] heart Paroxysmal atrial fibrillation (CMS/HCC) (HCC) Chronic GERD Anxiety Abdominal aortic aneurysm (AAA) without rupture (HCC) B12 deficiency Sick sinus syndrome (CMS/HCC) (HCC) GENNY (obstructive sleep apnea) History of coronary artery stent placement Cardiac pacemaker in situ 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) Ischemic stroke (HCC) Acute CVA (cerebrovascular accident) (HCC) Severe malnutrition (CMS/HCC) Past Medical History: Diagnosis Date Adiposity obesity [...] Hyperlipidemia Hypertension Hypertension Myocardial infarction (CMS/HCC) (HCC) 2015 Sleep apnea Vertigo Past Surgical History: Procedure Laterality Date ABDOMINAL SURGERY CARDIAC PACEMAKER PLACEMENT CATARACT EXTRACTION W/ INTRAOCULAR LENS IMPLANT Bilateral CHOLECYSTECTOMY 1981 Cholecystectomy EYE SURGERY OTHER SURGICAL HISTORY Right 1980 partial oopherectomy OTHER SURGICAL HISTORY heart cath with stent 2014 [place] OTHER SURGICAL HISTORY 2016 a.fib: loop recorder implanted OTHER SURGICAL HISTORY 2016 Atrial Fibrillation: Cardiovascular Intervention (ablation) SKIN BIOPSY PRECAUTIONS (INCLUDING WEIGHT-BEARING): Fall risk and Bed / chair alarm SUBJECTIVE: I am anxious about going home THERAPY PAIN: PRE-THERAPY PAIN LEVEL: 0 /10 PAIN LOCATION: No pain - Location N/A PAIN INTERVENTION(S): No pain - Intervention N/A POST-THERAPY PAIN LEVEL: 0 /10 PAIN SCALE USED: 0-10 SCALE OBJECTIVE: PLEASE REFER TO AM PROGRESS NOTE AND DISCHARGE QUALITY INDICATORS FROM THIS DATE FOR PROGRESS TOWARDS ADLS. APPEARANCE: PRESENTATION UPON OT ARRIVAL: PATIENT Supine with head of bed elevated PRESENTATION UPON OT DEPARTURE: PATIENT Sitting in manual wheelchair with staff assistance BED / CHAIR ALARM IN PLACE AND ACTIVATED UPON OT DEPARTURE: Yes CALL LIGHT WITHIN ARMS REACH OF PATIENT AT END OF SESSION: No - due to patient taken to physical therapy gym COMPLETED PATIENT HANDOFF AND NOTIFIED Physical Therapist / Physical Therapist Ultrasound Tester, NAME: Raudel, OF PATIENT'S LOCATION AND FUNCTIONAL STATUS UPON COMPLETION OF SESSION COGNITIVE / PERCEPTUAL: Pt. Alert and participatory (Short Blessed Test) Answer Max Error Error Score Weight Sub-Score 1. What year is it now? 2022 1 0 4 0 2. What month is it now? Repeat this phrase after me and remember it. Jason Meléndez [address] [place] [address]. Number of trialto learning 1 max 24 August 1 0 3 0 3. About what time is it without looking at your watch (within 1 hour?) Response: 1400 Actual Time: 1356 1 0 3 0 4. Count backwards from 20 to 1. Jackson correctly sequenced #'s []20 []19 []18 [] 17 []16 []15 [] 14 []13 []12 []11 [] 10 []9 []8 [] 7 [] 6 []5 []4 []3 []2 []1 2 02 0 5. Say the months of the year in reverse. [] D [] N []O [] S [] A [x]JL []JU []MY []A []M []F [] J 2 1 2 2 6. Repeat the name and address I asked you to remember. Jason Meléndez [address] [place] [address]. [] Jason [x] [place]hat [x] [x][facility] []Cammal 5 3 2 6 A weighted error score of 9 or greater indicates a need for further assessment. Total Weighted Error Score = 8 (a) Scoring 0 = No errors, 1 = 1 error, 2 = 2 or more errors, (b) An answer of either [facility] or [employer] is acceptable. BIMS: NOT COMPLETED - SPEECH THERAPY TO ADDRESS HEALTH LITERACY: NOT COMPLETED - SPEECH THERAPY TO ADDRESS CAM (Signs and Symptoms of Delirium): NOT COMPLETED - SPEECH THERAPY TO ADDRESS UE ROM / STRENGTH / COORDINATION: (A)ROM - RIGHT: WFL STRENGTH - RIGHT: 4/5 (A)ROM - LEFT: WFL STRENGTH - LEFT: 4+/5 HAND DOMINANCE: Right MACHINE BINDING FOLDER STRENGTH (RIGHT): TRIAL 1: 26 TRIAL 2: 23 TRIAL 3: 27 AVERAGE: 25.3 POUND(S) MACHINE BINDING FOLDER STRENGTH (LEFT): TRIAL 1: 43 TRIAL 2: 48 TRIAL 3: 51 AVERAGE: 47.3 POUND(S) LATERAL PINCH (RIGHT): TRIAL 1: 10 TRIAL 2: 9 TRIAL 3: 10 AVERAGE: 9.67 POUND(S) LATERAL PINCH (LEFT): TRIAL 1: 13 TRIAL 2: 13 TRIAL 3: 12 AVERAGE: 12.67 POUND(S) 3-JAW PINCH (RIGHT): TRIAL 1: 9 TRIAL 2: 9 TRIAL 3: 11 AVERAGE: 9.67 POUND(S) 3-JAW PINCH (LEFT): TRIAL 1: 12 TRIAL 2: 13 TRIAL 3: 12 AVERAGE: 12.3 POUND(S) 9-HOLE PEG TEST (RIGHT): Unable to complete due to deficits 9-HOLE PEG TEST (LEFT): 31.6 SECOND(S) MOBILITY: CAR TRANSFER LOCATION: CAR SIMULATOR SET AT HEIGHT OF 17 INCHES PER PATIENT'S HOME VEHICLE OVERALL ASSIST LEVEL: INCIDENTAL TOUCHING ASSISTANCE DEVICE: WHEELED WALKER ADDITIONAL DOCUMENTATION: Daughter provided CGA. Pt. Able to self advocate for care needs appropriately. TRANSFERS: Sit to/from stand-->SBA CAREGIVER PRESENT (YES / NO): Yes: Daughters, Chelle and Nadia Therapist provided caregiver education in the areas of ADL assist levels, transfer training, DME, theraputty HEP, relaxation/mindfulness, pursed lip breathing, and discharge plans. All questions and concerns addressed. Pt. And family verbalized understanding. EDUCATION & TRAINING PROVIDED: Role of OT, OT plan of care, Bed mobility training, Functional transfer training, Safety education, UE home exercise program, Durable medical equipment: Transfer chair, Pursed lip breathing / Relaxation techniques, Energy conservation education, Family / Caregiver training, and The following handouts were provided theraputty HEP, pursed lip breathing, mindfulness/relaxation ASSESSMENT: ACTIVITY TOLERANCE / RESPONSE TO OT: GOOD PARTICIPATION, GOOD MOTIVATION, RECEPTIVE TO EDUCATION / TRAINING, and FAIR TOLERANCE SUMMARY OF DEFICITS AND RECOMMENDED FOLLOW-UP: PATIENT CONTINUES TO PRESENT WITH DEFICITS IN THE AREAS OF Endurance, RUE proprioception, ADL/IADL independence, balance, mobility, RUE coordination, UE/LE strength. RECOMMEND CONTINUED INTERVENTION TO BE PROVIDED THROUGH HOME HEALTH OT TO INCREASE FUNCTIONAL INDEPENDENCE EQUIPMENT RECOMMENDED: Shower chair, grab bars, Hand mission analyst for walker, transfer chair for community mobility, bath jose PROGRESS TOWARDS GOALS: PLEASE REFER TO CARE PLAN FROM THIS DATE FOR PROGRESS TOWARDS INDIVIDUAL GOALS PLAN: THERAPY PLAN: PLEASE REFER TO MOST RECENT INPATIENT REHABILITATION TEAM CONFERENCE NOTE FOR DISCHARGE PLAN, INCLUDING LOCATION, RECOMMENDED LEVEL OF SUPERVISION AND ARRANGEMENTS. FREQUENCY OF THERAPY: FINAL SESSION PRIOR TO DISCHARGE PROGRESS TOWARDS GOALS: PLEASE REFER TO CARE PLAN FROM THIS DATE FOR PROGRESS TOWARDS INDIVIDUAL GOALS Azalea Martinez 08/22/22 Cosigned by Hiral Parks OT at 08/22/2022 3:24 PM CDT * Bell Moffett, SALES HUNTER - 08/22/2022 1:27 PM CDT Speech Language/Pathology SPEECH-LANGUAGE PATHOLOGY DISCHARGE SUMMARY Patient's Name: Abena Giron : 1940 Age: 82 y.o. 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 PAIN: Pre Therapy Pain Level:0 Pain Location: Pain Intervention: Post Therapy Pain Level/Response to Intervention:0 OBJECTIVE PRECAUTIONS: fall ORAL MOTOR: mild right labial weakness MOTOR SPEECH: dysarthric COMPREHENSION: intact EXPRESSION: intact COGNITION: wfl SWALLOWING/DYSPHAGIA: patient is now tolerating mechanical soft diet wth small bites and sips. Patient continues to tolerate thin liquids. EDUCATION: PATIENT/FAMILY Education: diet choices and foods at home on soft diet Response to Education: verbalized understanding. ASSESSMENT ACTIVITY TOLERANCE/RESPONSE TO ST: good BARRIERS TO LEARNING: anxiety,communication PROGRESS IN ST: patient has improved in intelligibility and orally weakness has improved. Patient now tolerating most soft foods and no longer requires just puree. PLAN RECOMMENDATIONS: recommend home health ,home with family and to continue soft foods at home. Refer to care plan from this date for progress toward ST specific goals * Opal Mace MD - 08/22/2022 10:42 AM CDT INPATIENT REHABILITATION DAILY PROGRESS NOTE CHIEF COMPLAINT: CVA SUBJECTIVE: Doing well. Ready for dc tomorrow. OBJECTIVE: VITALS: Vitals: 08/20/22 1909 08/21/22 0709 08/21/22 2007 08/22/22 0712 BP: 137/54 115/67 131/61 (!) 135/44 BP Location: Left arm Right arm Left arm Patient Position: Lying Lying Pulse: 78 69 70 72 Resp: 18 18 18 18 Temp: 36.3 ??C (97.3 ??F) 36.2 ??C (97.1 ??F) 36.3 ??C (97.4 ??F) 36.2 ??C (97.1 ??F) TempSrc: Oral Temporal SpO2: 97% 99% 100% 98% Weight: Height: PHYSICAL EXAM: General: no acute distress, in bed HEENT: normocephalic, trachea midline Heart: rrr Lungs: ctab GI: soft, nontender Neuro: alert, oriented, dysarthric Skin: sacrum red LABS/RADIOLOGY/DIAGNOSTIC REVIEW Recent Labs Lab Units 08/19/22 0825 WBC K/cumm 9.6 HEMOGLOBIN g/dL 12.7 HEMATOCRIT % 40.4 PLATELETS K/cumm 372 Recent Labs Lab Units 08/19/22 0825 SODIUM mmol/L 142 POTASSIUM PLASMA mmol/L 3.9 CHLORIDE mmol/L 106 CO2 mmol/L 23 ANIONGAP mmol/L 13 GLUCOSE mg/dL 120 BUN SERUM mg/dL 25 CREATININE mg/dL 0.77 CALCIUM mg/dL 9.6 ALBUMIN g/dL 3.9 ALK PHOS Units/L 39* ALT Units/L 16 AST Units/L 27 BILIRUBIN TOTAL mg/dL 0.7 Recent Labs Lab Units 08/19/22 0825 GLUCOSE mg/dL 120 OT Functional Mobility: 08/13 transfers: MIN/CGA OT Self Care: 08/13 bathing/toileting CGA, UB/LB dressing/footwear MIN, oral hygiene/grooming Set-up SALES HUNTER Cognition: oriented x3 SALES HUNTER Communication: word finding deficits and dysarthria SALES HUNTER Swallowing: assessed at . Patient with oral dysphagia/puree diet/thin liquids. PT Functional Mobility: 08/20/22 Bed Mobility: supine to and from sit with supervision assist Transfers: sit to and from stand with CG/SBA with cues for hand placement and safety. Transfers wheelchairto recliner chair CG assist, stand pivot transfer Ambulation: wheeled walker 80'x1, 25'x2, 20'x2 CGassist with decreased kimberly, decreased right foot clearance, decreased right heel strike and pushoff, flexed posture, downward gaze Stairs: 4 stairs with left handrail ascending CG/Min assist leading with right LE, descending with right handrail leading with left LE min assist. Wheelchair management & propulsion: using left UE and SHAYAN LE's 40'x1 and supervision assist with patient needing i ncreased time to complete task. No results found. MEDICATIONS: Current Facility-Administered Medications: acetaminophen (TYLENOL) tablet 650 mg, 650 mg, oral, Q6H PRN, Opal Mcae MD apixaban (ELIQUIS) tablet 5 mg, 5 mg, oral, Q12H NAVEED, Opal Mace MD, 5 mg at 08/22/22 0916 aspirin chewable tablet 81 mg, 81 mg, oral, Daily, Opal Mace MD, 81 mg at 08/22/22 0916 calcium carbonate (TUMS) chewable tablet 1,000 mg, 400 mg of elemental calcium, oral, TID PRN, Opal Mace MD dapagliflozin (FARXIGA) tablet 10 mg, 10 mg, oral, Daily, Opal Mace MD, 10 mg at08/22/22 0915 fluticasone propionate (FLONASE) 50 mcg/actuation nasal spray 1 spray, 1 spray, each nostril, Daily, Opal Mace MD, 1 spray at 08/22/22 0917 furosemide (LASIX) tablet 40 mg, 40 mg, oral, Daily, Opal Mace MD, 40 mg at 08/22/22 0915 metoprolol XL (TOPROL-XL) extended release tablet 12.5 mg, 12.5 mg, oral, Daily, Oapl Mace MD, 12.5 mg at 08/22/22 0915 ondansetron ODT (ZOFRAN-ODT) disintegrating tablet 4 mg, 4 mg, oral, TID PRN, Opal Mace MD, 4 mg at 08/14/22 1000 ramelteon (ROZEREM) tablet 8 mg, 8 mg, oral, Nightly PRN, Opal Mace MD, 8 mg at 08/20/222003 rosuvastatin (CRESTOR) tablet 10 mg, 10 mg, oral, Nightly, Opal Mace MD, 10 mg at 08/21/22 2100 senna-docusate (PERICOLACE) 8.6-50 mg per tablet 1 tablet, 1 tablet, oral, BID PRN, Opal Mace MD simethicone (MYLICON) chewable tablet 80 mg, 80 mg, oral, TID PRN, Opal Haywood MD spironolactone (ALDACTONE) split tablet 12.5 mg, 12.5 mg, oral, Daily, Opal Haywood MD, 12.5 mg at 08/22/22 0915 traZODone (DESYREL) tablet 25 mg, 25 mg, oral, Nightly PRN, Opal Mace MD ASSESSMENT/PLAN: MEDICAL PLAN OF CARE: 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, TNK Dysphagia Right hemiparesis Dysarthria Impaired mobility, ADLs, transfers, gait, balance, strength, endurance, speech, cognition, swallow Continue PT, OT Continue SALES HUNTER Continue Aspirin 81mg, Eliquis 5mg bid, rosuvastatin 10mg qhs HLD: continue rosuvastatin 10mg qhs HTN Afib s/p AV node ablation Sick sinus syndrome s/p pacemaker AAA HFrEF ER 20% CAD s/p stent 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 Okay at rest. Watch closely 08/16: bp readings varying. Asymptomatic this morning 08/19: bp better controlled 08/20: controlled. BP lower on left arm than right arm 08/21: dc losartan as BP been controlled while holding 08/22: controlled GERD: monitor for symptoms, tums prn Anemia : monitor hgb Anxiety: monitor Pain: Continue Tylenol 650mg q6h prn Bowels: Continue miralax daily, pericolace bid prn, simethicone prn. 08/14: dc miralax, family to bring in patient's home medicine Nausea: Continue Zofran prn, Tums prn Insomnia: Continue trazodone 25mg qhs prn Severe malnutrition: medical record consultant consulted Sacrum erythema: will discuss with nursing. Diet: puree/thin, NO GRAVY DVT ppx: eliquis Precautions: Fall, aspiration Weightbearing status: Full Code: LIMITED - No CPR Care discussed with Nursing REHAB PLAN OF CARE: Patient's expected intensity and duration of participation in the interdisciplinary rehabilitation program and disciplines that comprise this team: Therapies required to achieve goals:The patient will benefit from integrated coordination of care from the following interdisciplinary services: Medical Supervision, 24 hours Rehabilitation Nursing, Physical Therapy, Occupational Therapy, Case Management; Speech Therapy; Social Work Frequency and duration of therapies expect to be:Expected intensity and frequency of participation in the interdisciplinary rehab program is: 3 hours of therapy 5 days per week for the duration of length of stay Expected intensity and frequency of Physical Therapy (PT): 1.5 hours per day over 5-7 days for the duration of length of stay Expected intensity and frequency of Occupational Therapy (OT): 1.5 hours per day over 5-7 days per week for the duration of length of stay Expected intensity and frequency of Speech Therapy (SALES HUNTER): 1 hour per day per day over 5-7 days per week for the duration of length of stay FUNCTIONAL CHANGE: DISCHARGE PLANNING: Expected Discharge Date: Wednesday 08/23 with home health PT, OT SALES HUNTER Equipment: TBD Family Training: SW to set up Education: Follow up Appointments: PCP 1-2weeks Neurology 1-2 weeks Cardiology 1-2 weeks Opal Mace MD Physical Medicine and Rehabilitation I can be reached from 7am-7pm through phone or perfect serve. Hospitalist front desk receptionist from 7pm-7am * Azalea Martinez - 08/22/2022 10:09 AM CDT Occupational Therapy NOTE TYPE: OT TREATMENT ([facility] BEDSIDE SESSION) Patient's Name: Abena Giron Age / Sex: 82 y.o. 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) Ischemic stroke (HCC) Acute CVA (cerebrovascular accident) (HCC) Severe malnutrition (CMS/HCC) Past Medical History: Diagnosis Date Adiposity obesity [...] Hyperlipidemia Hypertension Hypertension Myocardial infarction (CMS/HCC) (HCC) 2015 Sleep apnea Vertigo Past Surgical History: Procedure Laterality Date ABDOMINAL SURGERY CARDIAC PACEMAKER PLACEMENT CATARACT EXTRACTION W/ INTRAOCULAR LENS IMPLANT Bilateral CHOLECYSTECTOMY 1981 Cholecystectomy EYE SURGERY OTHER SURGICAL HISTORY Right 1980 partial oopherectomy OTHER SURGICAL HISTORY heart cath with stent 2013 [place]/[facility] OTHER SURGICAL HISTORY 2016 a.fib: loop recorder implanted OTHER SURGICAL HISTORY 2016 Atrial Fibrillation: Cardiovascular Intervention (ablation) SKIN BIOPSY Precautions (Including Weight-Bearing): Fall risk and Bed / chair alarm SUBJECTIVE: Andrzej is not going to know me Talking about returning home to her cat Therapy Pain: Pre-therapy pain level: 0 / 10 Pain location: No pain - Location N/A Pain intervention(s): No pain - Intervention N/A Post-therapy pain level: 0 / 10 Pain scale used: 0-10 SCALE OBJECTIVE: APPEARANCE: Presentation upon OT arrival: Patient Supine with head of bed elevated Presentation upon OT departure: PATIENT Sitting in manual wheelchair with staff assistance Bed / chair alarm in place and activated upon OT departure: Yes Call light within arms reach of patient at end of session: No - due to patient taken to physical therapy gym Completed patient handoff and notified Physical Therapist / Physical Therapist Ultrasound Tester, name: Raudle, of patient's location and functional status upon completion of session. COGNITIVE / PERCEPTUAL: Pt. Alert and participatory SELF CARE: Shower / Bathe Self Type of bathing: WET WALK-IN SHOWER Location of shower / bathe self: Sitting on fold-down shower bench Tasks completed: ALL COMPONENTS Components that required assistance (if applicable): NONE Overall assist level: SUPERVISION ASSISTANCE / VERBAL CUES Adaptive equipment (if applicable): bath mitt and handheld shower nozzle Additional documentation: MIN verbal cues to wash soap out of hair Oral Hygiene Location of oral hygiene: Sitting in manual wheelchair Overall assist level: SET-UP / CLEAN-UP ASSISTANCE Additional documentation: N/A Other Grooming Tasks Location of other grooming tasks: Sitting in manual wheelchair Tasks completed: COMBING HAIR and APPLYING DEODORANT Overall assist level: SET-UP / CLEAN-UP ASSISTANCE Additional documentation: N/A UE Dressing Location of UE dressing: Sitting in manual wheelchair Tasks completed: Pullover shirt Overall assist level: SET-UP / CLEAN-UP ASSISTANCE Additional documentation: N/A LE Dressing (Underwear / Pants) Location of LE dressing (Underwear / Pants): Sitting in manual wheelchair and Standing at sink Tasks completed: Underwear and Elastic waist pants Overall assist level: PARTIAL / MODERATE ASSISTANCE: LESS THAN HALF (1% - 49%) Additional documentation: MIN A for pulling pants over hips on R side Putting On / Taking Off Footwear Location of putting on / taking off footwear: Sitting in manual wheelchair and Sitting on EOB Tasks completed: Slip-on shoe(s) and Footie(s) Overall assist level: PARTIAL / MODERATE ASSISTANCE: LESS THAN HALF (1% - 49%) Additional documentation: MIN assist provided by daughter to start footies over toes while seated EOB Toileting Location: SITTING ON STANDARD TOILET and STANDING AT STANDARD TOILET Tasks completed: HYGIENE MANAGEMENT, CLOTHING MANAGEMENT PRE-TOILETING, and CLOTHING MANAGEMENT POST-TOILETING Overall assist level: SUPERVISION ASSISTANCE / VERBAL CUES Additional documentation: SBA MOBILITY: Toilet transfer Location: STANDARD TOILET Overall assist level: SUPERVISION ASSISTANCE / VERBAL CUES Device: GRAB BARS Additional documentation: SBA Tub / shower transfer Location: WALK-IN SHOWER and TUB / SHOWER COMBINATION Overall assist level: PARTIAL / MODERATE ASSISTANCE: LESS THAN HALF (1% - 49%) Device: GRAB BARS and WHEELED WALKER Additional documentation: CGA for transfer in/out of walk in shower. MIN A for lifting R leg to clear tub threshold in simulated tub/shower transfer. MIN A overall Bed mobility: Supine to seated EOB-->SPV Seated EOB--stand pivot to sit in w/c-->SBA/CGA Transfers: Sit to/from stand-->SBA HEARING / SPEECH / VISION: Expression of ideas and wants Overall assist level: SOME DIFFICULTY Understanding verbal and non-verbal content Overall assist level: UNDERSTANDS Caregiver present (yes / no): Yes: DaughterChelle Therapist educated daughter on ADL assist levels and tub/shower transfer training. Also discussed DME and home set up. All questions and concerns addressed, daughter verbalized understanding. Education & training provided: Role of OT, OT plan of care, ADL training, Compensatory ADL strategies, Bed mobility training, Functional transfer training, Safety education, Pursed lip breathing / Relaxation techniques, and Family / Caregiver training ASSESSMENT: Activity tolerance / response to OT: GOOD PARTICIPATION, GOOD MOTIVATION, RECEPTIVE TO EDUCATION / TRAINING, and FAIR TOLERANCE Progress towards goals: Please refer to Care Plan from this date for progress towards individual goals. PLAN: Therapy Plan: Please refer to most recent Inpatient Rehabilitation Team Conference note for discharge plan, including location, recommended level of supervision, and arrangements. Frequency of therapy: BID SESSIONS 5 DAYS / WEEK TO ADDRESS PREVIOUSLY ESTABLISHED DEFICITS AND GOALS Azalea Martinez 08/22/22 Cosigned by Hiral Parks OT at 08/22/2022 3:24 PM CDT * Bell Moffett, SALES HUNTER - 08/22/2022 9:01 AM CDT Speech Language/Pathology SPEECH LANGUAGE PATHOLOGY PROGRESS NOTE Patient's Name: Abena Giron : 1940 Age: 82 y.o. 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) Ischemic stroke (HCC) Acute CVA (cerebrovascular accident) (HCC) Severe malnutrition (CMS/HCC) Past Medical History: Diagnosis Date Adiposity obesity [...] Hyperlipidemia Hypertension Hypertension Myocardial infarction (CMS/HCC) (HCC) 2015 Sleep apnea Vertigo Past Surgical History: Procedure Laterality Date ABDOMINAL SURGERY CARDIAC PACEMAKER PLACEMENT CATARACT EXTRACTION W/ INTRAOCULAR LENS IMPLANT Bilateral CHOLECYSTECTOMY 1980 Cholecystectomy EYE SURGERY OTHER SURGICAL HISTORY Right 1980 partial oopherectomy OTHER SURGICAL HISTORY heart cath with stent 2013 [place]/[facility] OTHER SURGICAL HISTORY 2016 a.fib: loop recorder implanted OTHER SURGICAL HISTORY 2016 Atrial Fibrillation: Cardiovascular Intervention (ablation) SKIN BIOPSY SUBJECTIVE MENTAL STATUS: alert and cooperative. PAIN: Pre Therapy Pain Level:0 Pain Location: Pain Intervention: Post Therapy Pain Level/Response to Intervention:0 OBJECTIVE PRECAUTIONS: fall SWALLOWING: tolerating pureed with trials of mechanical soft. Recommend upgrade to mechanical soft at home. COGNITION: intact COMMUNICATION: dysarthric TREATMENT ACTIVITIES: oral exercises, review food choices for home, speech at conversation 80% intelligible with patient self correcting the majority of the time. EDUCATION: PATIENT/FAMILY EDUCATION: food at home Response to Education: verbalized understanding. ASSESSMENT Activity Tolerance/Response to S.T.: good Barriers to learning: anxiety, communication Current status: moderate dysarthria, mild oral dysphagia Progress toward goals: Patient continues to progress toward previously set goals which remain appropriate at this time. PLAN Multi-Disciplinary Problems (from Speech Therapy) Active Problems Problem: Swallowing Start Date: 08/12/22 Goal Start Date Expected End Date End Date LTG - Patient will tolerate the least restrictive diet consistency to allow for safe consumption ofdaily meals 08/12/22 08/19/22 -- Problem: Communication/Motor Speech Start Date: 08/12/22 Goal Start Date Expected End Date End Date STG - Patient will participate in oral-motor exercises to improve strength 08/12/22 08/19/22 -- Goal Start Date Expected End Date End Date STG - Patient will use speech intelligibility Intervention at conversational level 08/12/22 08/19/22 -- Frequency of Treatment: bid 5 xweekly Recommendations: home with home health speech tx. If this is the last note, consider this the discharge summary. * Raudel Ferrara, PT - 08/22/2022 8:04 AM CDT Physical Therapy DISCHARGE SUMMARY PATIENT'S NAME:Abena Giron :1940 AGE:82 y.o. 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) Ischemic stroke (HCC) Acute CVA (cerebrovascular accident) (HCC) Severe malnutrition (CMS/HCC) Past Medical History: Diagnosis Date Adiposity obesity [...] Hyperlipidemia Hypertension Hypertension Myocardial infarction (CMS/HCC) (HCC) 2015 Sleep apnea Vertigo Past Surgical History: Procedure Laterality Date ABDOMINAL SURGERY CARDIAC PACEMAKER PLACEMENT CATARACT EXTRACTION W/ INTRAOCULAR LENS IMPLANT Bilateral CHOLECYSTECTOMY 1981 Cholecystectomy EYE SURGERY OTHER SURGICAL HISTORY Right 1980 partial oopherectomy OTHER SURGICAL HISTORY heart cath with stent 2013 [place]/[facility] OTHER SURGICAL HISTORY 2016 a.fib: loop recorder implanted OTHER SURGICAL HISTORY 2016 Atrial Fibrillation: Cardiovascular Intervention (ablation) SKIN BIOPSY SUBJECTIVE Patient excited to go home MENTAL STATUS/ORIENTATION: Person, Place, Time, and Situation OBJECTIVE PRECAUTIONS: fall, aspiration APPEARANCE/POSTURE: sitting in w/c in gym, alarm activated, daughter present, no apparent distress. VITAL SIGNS: no s/s of distress PAIN: Pre-therapy pain level: 0/10 Post-therapy pain level/response to intervention: 0/10 LE ASSESSMENTS: Right LE ROM: WFL Left LE ROM: WFL Right LE strength: grossly 5/5 Left LE strength: grossly 5/5 Coordination: rapid alternating toe taps intact, mild RLE ataxia with ambulation. Tone: normal in BLE MOBILITY: Bed Mobility: independent in supine to/from sit and rolling bilaterally.increased time to get RLE onto bed. Transfers: CG/supervision for sit to/from stand with w/w, cues for R hand management on hand splint. CG assist for w/c to/from bed with w/w. Ambulation: CG assist/supervision for 10' + 160' with w/w, good kimberly, decreased RLE clearance aspatient fatigues but able to clear with conscious effort. Stairs: CG assist for 4 steps via side-stepping and BUE support on single handrail, good sequencingnoted, daughter present able to be hands on. Reports no physical assist needed from her. Wheelchair management & propulsion: N/A Balance: Static sitting balance: good Dynamic sitting balance: good Static standing balance: good Dynamic standing balance: good Additional Treatment Provided: none Appearance/Posture at end of treatment session: sitting in bedside chair, room air, call light in reach, no apparent distress. RNMellissa, given handoff. EDUCATION: Educated: discharge evaluation, progress in PT, safety upon discharge, PT POC Response to education:verbalizes understanding ASSESSMENT PROBLEM LIST: impaired balance, decreased strength, decreased endurance BARRIERS TO LEARNING: none PROGRESS IN PT: Patient tolerated her stay well on CMR. Patient completing her bed mobility with independence. CG assist still required on average for transfers and ambulation with use of wheeled walked. Patient is able to ambulate up to 150' safely with wheeled walker, but increasing fatigue results in impaired RLE clearance. Patient able to navigate up to 4 steps with use of handrail for support. Family has been very supportive throughout stay and has completed thorough training to ensure patient's safe discharge home. PLAN RECOMMENDATIONS: home with 24/7 assist and HHPT EQUIPMENT ISSUED: wheeled walker Refer to multi-disciplinary care plan section for PT specific goals. * Mariah Tripp COTA - 08/21/2022 3:52 PM CDT Occupational Therapy NOTE TYPE: OT TREATMENT (CMR DEPARTMENT SESSION) PATIENT'S NAME: Abena Giron AGE / SEX: 82 y.o. 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) Ischemic stroke (HCC) Acute CVA (cerebrovascular accident) (HCC) Severe malnutrition (CMS/HCC) Past Medical History: Diagnosis Date Adiposity obesity [...] Hyperlipidemia Hypertension Hypertension Myocardial infarction (CMS/HCC) (HCC) 2015 Sleep apnea Vertigo Past Surgical History: Procedure Laterality Date ABDOMINAL SURGERY CARDIAC PACEMAKER PLACEMENT CATARACT EXTRACTION W/ INTRAOCULAR LENS IMPLANT Bilateral CHOLECYSTECTOMY 1981 Cholecystectomy EYE SURGERY OTHER SURGICAL HISTORY Right 1980 partial oopherectomy OTHER SURGICAL HISTORY heart cath with stent 2014 [place] OTHER SURGICAL HISTORY 2016 a.fib: loop recorder implanted OTHER SURGICAL HISTORY 2016 Atrial Fibrillation: Cardiovascular Intervention (ablation) SKIN BIOPSY PRECAUTIONS (INCLUDING WEIGHT-BEARING): R UE weakness, Fall risk, and Bed / chair alarm SUBJECTIVE: I have to use the bathroom THERAPY PAIN: PRE-THERAPY PAIN LEVEL: 0 / 10 PAIN LOCATION: No pain - Location N/A PAIN INTERVENTION(S): No pain - Intervention N/A POST-THERAPY PAIN LEVEL: 0 / 10 PAIN SCALE USED: 0-10 SCALE OBJECTIVE: APPEARANCE: PRESENTATION UPON OT ARRIVAL: PATIENT Supine with head of bed elevated PRESENTATION UPON OT DEPARTURE: PATIENT Sitting in manual wheelchair with staff assistance BED / CHAIR ALARM IN PLACE AND ACTIVATED UPON OT DEPARTURE: Yes CALL LIGHT WITHIN ARMS REACH OF PATIENT AT END OF SESSION: No - due to patient taken to physical therapy gym COMPLETED PATIENT HANDOFF AND NOTIFIED Physical Therapist / Physical Therapist Ultrasound Tester, NAME: Bria, OF PATIENT'S LOCATION AND FUNCTIONAL STATUS UPON COMPLETION OF SESSION COGNITIVE / PERCEPTUAL: Alert, pleasant, cooperative MOBILITY: TOILET TRANSFER LOCATION: STANDARD TOILET OVERALL ASSIST LEVEL: INCIDENTAL TOUCHING ASSISTANCE DEVICE: GRAB BARS ADDITIONAL DOCUMENTATION: CGA for safety TOILETING LOCATION: SITTING ON STANDARD TOILET TASKS COMPLETED: HYGIENE MANAGEMENT, CLOTHING MANAGEMENT PRE-TOILETING, and CLOTHING MANAGEMENT POST-TOILETING OVERALL ASSIST LEVEL: PARTIAL / MODERATE ASSISTANCE: LESS THAN HALF (1% - 49%) ADDITIONAL DOCUMENTATION: MIN A to manage LB garments post toileting. LE DRESSING (UNDERWEAR / PANTS) LOCATION OF LE DRESSING (UNDERWEAR / PANTS): Sitting on toilet and Standing at the toilet TASKS COMPLETED: Elastic waist pants OVERALL ASSIST LEVEL: PARTIAL / MODERATE ASSISTANCE: LESS THAN HALF (1% - 49%) ADDITIONAL DOCUMENTATION: MIN A threading R LE while sitting on toilet. MIN A to adjust pants at the buttocks. TRANSFERS: CGA all transfers. LIVING SKILLS: ADDITIONAL ACTIVITIES: FMC/ OBJECT MANIPULATION (OVERALL ASSIST LEVEL): MOD A LOCATION: Sitting in manual wc in OT gym ACTIVITY DESCRIPTION: Set up of clothespins with vc's for patient to coordinate on rods of different width. Patient required MOD verbal and visual cues to problem solve with R UE due to weakness. CAREGIVER PRESENT (YES / NO): Yes: daughter EDUCATION & TRAINING PROVIDED: Role of OT, OT plan of care, ADL training, Bed mobility training, Functional transfer training, Balance training, and Safety education ASSESSMENT: ACTIVITY TOLERANCE / RESPONSE TO OT: GOOD PARTICIPATION, GOOD MOTIVATION, and RECEPTIVE TO EDUCATION / TRAINING PROGRESS TOWARDS GOALS: PLEASE REFER TO CARE PLAN FROM THIS DATE FOR PROGRESS TOWARDS INDIVIDUAL GOALS PLAN: PLEASE REFER TO MOST RECENT INPATIENT REHABILITATION TEAM CONFERENCE NOTE FOR DISCHARGE PLAN, INCLUDING LOCATION, RECOMMENDED LEVEL OF SUPERVISION AND ARRANGEMENTS. FREQUENCY OF THERAPY: BID SESSIONS 5 DAYS / WEEK TO ADDRESS PREVIOUSLY ESTABLISHED DEFICITS AND GOALS TARA Treviño 08/21/22 * Bell Moffett, SALES HUNTER - 08/21/2022 1:30 PM CDT Speech Language/Pathology SPEECH LANGUAGE PATHOLOGY PROGRESS NOTE Patient's Name: Abena Giron : 1940 Age: 82 y.o. 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) Ischemic stroke (HCC) Acute CVA (cerebrovascular accident) (HCC) Severe malnutrition (CMS/HCC) Past Medical History: Diagnosis Date Adiposity obesity [...] Hyperlipidemia Hypertension Hypertension Myocardial infarction (CMS/HCC) (HCC) 2015 Sleep apnea Vertigo Past Surgical History: Procedure Laterality Date ABDOMINAL SURGERY CARDIAC PACEMAKER PLACEMENT CATARACT EXTRACTION W/ INTRAOCULAR LENS IMPLANT Bilateral CHOLECYSTECTOMY 1981 Cholecystectomy EYE SURGERY OTHER SURGICAL HISTORY Right 1980 partial oopherectomy OTHER SURGICAL HISTORY heart cath with stent 2014 [place]/[facility] OTHER SURGICAL HISTORY 2016 a.fib: loop recorder implanted OTHER SURGICAL HISTORY 2016 Atrial Fibrillation: Cardiovascular Intervention (ablation) SKIN BIOPSY SUBJECTIVE MENTAL STATUS: alert PAIN: Pre Therapy Pain Level:0 Pain Location: Pain Intervention: Post Therapy Pain Level/Response to Intervention:0 OBJECTIVE PRECAUTIONS: fall SWALLOWING: patient tolerating soft foods . List of foods given to patient and family that she can eat at home/thin liquids. COGNITION: forgetful COMMUNICATION: dysarthric TREATMENT ACTIVITIES: oral exercises, speech intelligibility, review swallow guidelines EDUCATION: PATIENT/FAMILY EDUCATION: food choices at home Response to Education: verbalized understanding. ASSESSMENT Activity Tolerance/Response to S.T.: good Barriers to learning: communication,anxiety Current status: mod dysarthria,mild oral dysphagia Progress toward goals: Patient continues to progress toward previously set goals which remain appropriate at this time. PLAN Multi-Disciplinary Problems (from Speech Therapy) Active Problems Problem: Swallowing Start Date: 08/12/22 Goal Start Date Expected End Date End Date LTG - Patient will tolerate the least restrictive diet consistency to allow for safe consumption ofdaily meals 08/12/22 08/19/22 -- Problem: Communication/Motor Speech Start Date: 08/12/22 Goal Start Date Expected End Date End Date STG - Patient will participate in oral-motor exercises to improve strength 08/12/22 08/19/22 -- Goal Start Date Expected End Date End Date STG - Patient will use speech intelligibility Intervention at conversational level 08/12/22 08/19/22 -- Frequency of Treatment: bid 5x weekly Recommendations: home with family and continued speech tx. If this is the last note, consider this the discharge summary. * Lenka Perez, LIBORIO - 08/21/2022 1:02 PM CDT Physical Therapy PT PROGRESS NOTE Abena Mendiola Mack 82 y.o. 1940 Past Medical History: Diagnosis Date Adiposity obesity [...] Hyperlipidemia Hypertension Hypertension Myocardial infarction (CMS/HCC) (HCC) 2015 Sleep apnea Vertigo Past Surgical History: Procedure Laterality Date ABDOMINAL SURGERY CARDIAC PACEMAKER PLACEMENT CATARACT EXTRACTION W/ INTRAOCULAR LENS IMPLANT Bilateral CHOLECYSTECTOMY 1981 Cholecystectomy EYE SURGERY OTHER SURGICAL HISTORY Right 1980 partial oopherectomy OTHER SURGICAL HISTORY heart cath with stent 2014 [place] OTHER SURGICAL HISTORY 2016 a.fib: loop recorder implanted OTHER SURGICAL HISTORY 2016 Atrial Fibrillation: Cardiovascular Intervention (ablation) SKIN BIOPSY Patient Active Problem List Diagnosis Hypertension Osteoarthritis Hyperlipidemia Coronary artery disease involving [place] coronary artery of [place] heart Paroxysmal atrial fibrillation (CMS/HCC) (HCC) Chronic GERD Anxiety Abdominal aortic aneurysm (AAA) without rupture (HCC) B12 deficiency Sick sinus syndrome (CMS/HCC) (HCC) GENNY (obstructive sleep apnea) History of coronary artery stent placement Cardiac pacemaker in situ 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 MOBILITY DOCUMENTATION: All mobility performed by daughter Geoff with supervision/CG Assist of therapist. Patient transferssit to supine; wheelchair to bed; and sit to and from stand. Patient ambulates with wheeled walker 45'x1 with difficulty keeping right hand on walker due to fatigue. Right hand mission analyst placed on walker with patient then ambulating additional 25'. Patient reports liking the hand splint for additionalsupport with right hand. 4 stairs with one handrail as stated in a.m. with verbal cues for sequencing and positioning of daughter. TREATMENT: Family education performed Appearance/Posture at end of treatment session: Patient supine in bed with alarm on and in place and call button in reach. EDUCATION: PATIENT/FAMILY EDUCATION: family education performed with daughter performing all mobility and stairs with patient with CG/SBA of therapist. Reviewed home packet with daughter and answered all questions. Response to Education: verbalizes understanding ASSESSMENT Activity tolerance/response to PT: patient demonstrates increased fatigue with all activities. Patient issued wheeled walker and right hand mission analyst. Barriers to learning: Physical Barriers to discharge: Limited safety awareness, Decreased endurance, Upper extremity weakness, andLower extremity weakness Patient continues progressing toward previously set goals which remain appropriate at this time. PLAN Patient to be seen bid 5x/week to address previously established deficits and goals. * Lenka Perez PTA - 08/21/2022 11:56 AM CDT Physical Therapy PT PROGRESS NOTE Abena Giron 82 y.o. 1940 Past Medical History: Diagnosis Date Adiposity obesity [...] a.fib: loop recorder implanted OTHER SURGICAL HISTORY 2016 Atrial Fibrillation: Cardiovascular Intervention (ablation) SKIN BIOPSY Patient Active Problem List Diagnosis Hypertension Osteoarthritis Hyperlipidemia Coronary artery disease involving [place] coronary artery of [place] heart Paroxysmal atrial fibrillation (CMS/HCC) (HCC) Chronic GERD Anxiety Abdominal aortic aneurysm (AAA) without rupture (HCC) B12 deficiency Sick sinus syndrome (CMS/HCC) (HCC) GENNY (obstructive sleep apnea) History of coronary artery stent placement Cardiac pacemaker in situ 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 Patient reports feeling her right leg is weaker today. Patient also c/o right eye dryness MENTAL STATUS/ORIENTATION: Alert and oriented x4 PAIN: Pre-therapy pain level: 0/10 Pain location: n/a Pain intervention: none needed at this time Post-therapy pain level/response to intervention: 0/10 OBJECTIVE PRECAUTIONS: fall risk, aspiration precautions APPEARANCE/POSTURE: patient sitting in wheelchair, alarm in place, agreeable to therapy. MOBILITY DOCUMENTATION: Bed Mobility: n/a Transfers: sit to and from stand performed by daughter with supervision assist of therapist. Ambulation: wheeled walker 80'x2 including over carpet. Ambulation performed by daughter with SBA of therapist, one LOB which patient and daughter recovered with CG assist of therapist. Patient with decreased kimberly, narrow PAUL, decreased right foot clearance, decreased right heel strike and push off, decreased right step length. Stairs: 4 stairs with 1 handrail ascending forward with daughter assisting and CG/SBA of therapist.Descending with right handrail and stepping down sideways CG assist of therapist. Wheelchair management & propulsion: n/a TREATMENT: Daughter present and performed all activities with patient. Daughter putting on gait belt and away of safety concerns. Appearance/Posture at end of treatment session: patient sitting in wheelchair, alarm in place, callbutton in reach, daughter at bedside to assist patient with lunch. EDUCATION: PATIENT/FAMILY EDUCATION: patient and family educated on gait, transfers, stairs, balance, and safety. Reviewed copies of HEP, home safety instructions, gait belt and walker instructions, transfer guidelines. Response to Education: needs reinforcement and verbalizes understanding ASSESSMENT Activity tolerance/response to PT: patient's daughter participating in all activities with generally supervision assist of therapist. Open and receptive to all education Barriers to learning: Physical and Language Barriers to discharge: Limited safety awareness, Decreased endurance, Upper extremity weakness, andLower extremity weakness Patient continues progressing toward previously set goals which remain appropriate at this time. PLAN Patient to be seen bid 5x/week to address previously established deficits and goals. * Opal Mace MD - 08/21/2022 11:15 AM CDT INPATIENT REHABILITATION DAILY PROGRESS NOTE CHIEF COMPLAINT: CVA SUBJECTIVE: Anxious to get home. Did not sleep well last night OBJECTIVE: VITALS: Vitals: 08/20/22 1655 08/20/22 1705 08/20/22 1909 08/21/22 0709 BP: 90/59 110/70 137/54 115/67 BP Location: Left arm Right arm Left arm Patient Position: HOB 30 degrees HOB 30 degrees Pulse: 70 78 69 Resp: 18 18 Temp: 36.3 ??C (97.3 ??F) 36.2 ??C (97.1 ??F) TempSrc: SpO2: 99% 97% 99% Weight: Height: PHYSICAL EXAM: General: no acute distress, in chair HEENT: normocephalic, trachea midline Heart: rrr Lungs: ctab GI: soft, nontender Neuro: alert, oriented, dysarthric LABS/RADIOLOGY/DIAGNOSTIC REVIEW Recent Labs Lab Units 08/19/22 0825 WBC K/cumm 9.6 HEMOGLOBIN g/dL 12.7 HEMATOCRIT % 40.4 PLATELETS K/cumm 372 Recent Labs Lab Units 08/19/22 0825 SODIUM mmol/L 142 POTASSIUM PLASMA mmol/L 3.9 CHLORIDE mmol/L 106 CO2 mmol/L 23 ANIONGAP mmol/L 13 GLUCOSE mg/dL 120 BUN SERUM mg/dL 25 CREATININE mg/dL 0.77 CALCIUM mg/dL 9.6 ALBUMIN g/dL 3.9 ALK PHOS Units/L 39* ALT Units/L 16 AST Units/L 27 BILIRUBIN TOTAL mg/dL 0.7 Recent Labs Lab Units 08/19/22 0825 GLUCOSE mg/dL 120 OT Functional Mobility: 08/13 transfers: MIN/CGA OT Self Care: 08/13 bathing/toileting CGA, UB/LB dressing/footwear MIN, oral hygiene/grooming Set-up SALES HUNTER Cognition: oriented x3 SALES HUNTER Communication: word finding deficits and dysarthria SALES HUNTER Swallowing: assessed at . Patient with oral dysphagia/puree diet/thin liquids. PT Functional Mobility: 08/20/22 Bed Mobility: supine to and from sit with supervision assist Transfers: sit to and from stand with CG/SBA with cues for hand placement and safety. Transfers wheelchairto recliner chair CG assist, stand pivot transfer Ambulation: wheeled walker 80'x1, 25'x2, 20'x2 CGassist with decreased kimberly, decreased right foot clearance, decreased right heel strike and pushoff, flexed posture, downward gaze Stairs: 4 stairs with left handrail ascending CG/Min assist leading with right LE, descending with right handrail leading with left LE min assist. Wheelchair management & propulsion: using left UE and SHAYAN LE's 40'x1 and supervision assist with patient needing i ncreased time to complete task. No results found. MEDICATIONS: Current Facility-Administered Medications: acetaminophen (TYLENOL) tablet 650 mg, 650 mg, oral, Q6H PRN, Opal Mace MD apixaban (ELIQUIS) tablet 5 mg, 5 mg, oral, Q12H NAVEED, Opal Mace MD, 5 mg at 08/21/22 0821 aspirin chewable tablet 81 mg, 81 mg, oral, Daily, Opal Mace MD, 81 mg at 08/21/22 0821 calcium carbonate (TUMS) chewable tablet 1,000 mg, 400 mg of elemental calcium, oral, TID PRN, Opal Mace MD dapagliflozin (FARXIGA) tablet 10 mg, 10 mg, oral, Daily, Opal Mace MD, 10 mg at08/21/22 0822 fluticasone propionate (FLONASE) 50 mcg/actuation nasal spray 1 spray, 1 spray, each nostril, Daily, Opal Mace MD, 1 spray at 08/20/22 0900 furosemide (LASIX) tablet 40 mg, 40 mg, oral, Daily, Opal Mace MD, 40 mg at 08/21/22 0823 metoprolol XL (TOPROL-XL) extended release tablet 12.5 mg, 12.5 mg, oral, Daily, Opal Mace MD, 12.5 mg at 08/21/22 0820 ondansetron ODT (ZOFRAN-ODT) disintegrating tablet 4 mg, 4 mg, oral, TID PRN, Opal Mace MD, 4 mg at 08/14/22999 ramelteon (ROZEREM) tablet 8 mg, 8 mg, oral, Nightly PRN, Opal Mace MD, 8 mg at 08/20/222003 rosuvastatin (CRESTOR) tablet 10 mg, 10 mg, oral, Nightly, Opal Mace MD, 10 mg at 08/20/222003 senna-docusate (PERICOLACE) 8.6-50 mg per tablet 1 tablet, 1 tablet, oral, BID PRN, Opal Mace MD simethicone (MYLICON) chewable tablet 80 mg, 80 mg, oral, TID PRN, Opal Haywood MD spironolactone (ALDACTONE) split tablet 12.5 mg, 12.5 mg, oral, Daily, Opal Haywood MD, 12.5 mg at 08/21/22 0819 traZODone (DESYREL) tablet 25 mg, 25 mg, oral, Nightly PRN, Opal Mace MD ASSESSMENT/PLAN: MEDICAL PLAN OF CARE: 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, TNK Dysphagia Right hemiparesis Dysarthria Impaired mobility, ADLs, transfers, gait, balance, strength, endurance, speech, cognition, swallow Continue PT, OT Continue SALES HUNTER Continue Aspirin 81mg, Eliquis 5mg bid, rosuvastatin 10mg qhs HLD: continue rosuvastatin 10mg qhs HTN Afib s/p AV node ablation Sick sinus syndrome s/p pacemaker AAA HFrEF ER 20% CAD s/p stent 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 Okay at rest. Watch closely 08/16: bp readings varying. Asymptomatic this morning 08/19: bp better controlled 08/20: controlled. BP lower on left arm than right arm 08/21: dc losartan as BP been controlled while holding GERD: monitor for symptoms, tums prn Anemia : monitor hgb Anxiety: monitor Pain: Continue Tylenol 650mg q6h prn Bowels: Continue miralax daily, pericolace bid prn, simethicone prn. 08/14: dc miralax, family to bring in patient's home medicine Nausea: Continue Zofran prn, Tums prn Insomnia: Continue trazodone 25mg qhs prn Severe malnutrition: medical record consultant consulted Diet: puree/thin, NO GRAVY DVT ppx: eliquis Precautions: Fall, aspiration Weightbearing status: Full Code: LIMITED - No CPR Care discussed with Nursing Case conference today, refer to note for further information REHAB PLAN OF CARE: Patient's expected intensity and duration of participation in the interdisciplinary rehabilitation program and disciplines that comprise this team: Therapies required to achieve goals:The patient will benefit from integrated coordination of care from the following interdisciplinary services: Medical Supervision, 24 hours Rehabilitation Nursing, Physical Therapy, Occupational Therapy, Case Management; Speech Therapy; Social Work Frequency and duration of therapies expect to be:Expected intensity and frequency of participation in the interdisciplinary rehab program is: 3 hours of therapy 5 days per week for the duration of length of stay Expected intensity and frequency of Physical Therapy (PT): 1.5 hours per day over 5-7 days for the duration of length of stay Expected intensity and frequency of Occupational Therapy (OT): 1.5 hours per day over 5-7 days per week for the duration of length of stay Expected intensity and frequency of Speech Therapy (SALES HUNTER): 1 hour per day per day over 5-7 days per week for the duration of length of stay FUNCTIONAL CHANGE: UE dressing - modA DISCHARGE PLANNING: Expected Discharge Date: Wednesday 08/23 with home health PT, OT SALES HUNTER Equipment: TBD Family Training: SW to set up Education: Follow up Appointments: PCP 1-2weeks Neurology 1-2 weeks Cardiology 1-2 weeks Opal Mace MD Physical Medicine and Rehabilitation I can be reached from 7am-7pm through phone or perfect serve. Hospitalist front desk receptionist from 7pm-7am * Mariah Tripp COTA - 08/21/2022 9:59 AM CDT Occupational Therapy NOTE TYPE: OT TREATMENT (CMR BEDSIDE SESSION) Patient's Name: Abena Giron Age / Sex: 82 y.o. / female Room: [place] [id number] : 1940 Date: 08/21/22 Time In: 1000 Time Out: 1056 Patient Active Problem List Diagnosis Hypertension Osteoarthritis Hyperlipidemia Coronary artery disease involving [place] coronary artery of [place] heart Paroxysmal atrial fibrillation (CMS/HCC) (HCC) Chronic GERD Anxiety Abdominal aortic aneurysm (AAA) without rupture (HCC) B12 deficiency Sick sinus syndrome (CMS/HCC) (HCC) GENNY (obstructive sleep apnea) History of coronary artery stent placement Cardiac pacemaker in situ 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) Ischemic stroke (HCC) Acute CVA (cerebrovascular accident) (HCC) Severe malnutrition (CMS/HCC) Past Medical History: Diagnosis Date Adiposity obesity [...] Hyperlipidemia Hypertension Hypertension Myocardial infarction (CMS/HCC) (HCC) 2015 Sleep apnea Vertigo Past Surgical History: Procedure Laterality Date ABDOMINAL SURGERY CARDIAC PACEMAKER PLACEMENT CATARACT EXTRACTION W/ INTRAOCULAR LENS IMPLANT Bilateral CHOLECYSTECTOMY 1981 Cholecystectomy EYE SURGERY OTHER SURGICAL HISTORY Right 1980 partial oopherectomy OTHER SURGICAL HISTORY heart cath with stent 2014 [place]/[facility] OTHER SURGICAL HISTORY 2016 a.fib: loop recorder implanted OTHER SURGICAL HISTORY 2016 Atrial Fibrillation: Cardiovascular Intervention (ablation) SKIN BIOPSY Precautions (Including Weight-Bearing): R side weakness, Fall risk, and Bed / chair alarm SUBJECTIVE: Do we have time for a shower ? Therapy Pain: Pre-therapy pain level: 0 / 10 Pain location: No pain - Location N/A Pain intervention(s): No pain - Intervention N/A Post-therapy pain level: 0 / 10 Pain scale used: 0-10 SCALE OBJECTIVE: APPEARANCE: Presentation upon OT arrival: Patient Supine with head of bed elevated Presentation upon OT departure: PATIENT Sitting in manual wheelchair with staff assistance Bed / chair alarm in place and activated upon OT departure: Yes Call light within arms reach of patient at end of session: No - due to patient taken to physical therapy gym Completed patient handoff and notified Physical Therapist / Physical Therapist Ultrasound Tester, name: Bria, of patient's location and functional status upon completion of session. VITAL SIGNS: Heart rate with activity: 70 BPM O2 sats with activity: 100 % Oxygen LPM: room air Blood pressure with activity: 124/50 COGNITIVE / PERCEPTUAL: Alert, pleasant, cooperative SELF CARE: Shower / Bathe Self Type of bathing: WET WALK-IN SHOWER Location of shower / bathe self: Sitting on fold-down shower bench Tasks completed: ALL COMPONENTS Components that required assistance (if applicable): CGA ASSIST PERINEAL AREA and CGA ASSIST BUTTOCKS Overall assist level: INCIDENTAL TOUCHING ASSISTANCE Adaptive equipment (if applicable): handheld shower nozzle and shower chair Additional documentation: N/A Oral Hygiene Location of oral hygiene: Sitting in manual wheelchair Overall assist level: SUPERVISION ASSISTANCE / VERBAL CUES Additional documentation: N/A Other Grooming Tasks Location of other grooming tasks: Sitting in manual wheelchair Tasks completed: COMBING HAIR Overall assist level: SUPERVISION ASSISTANCE / VERBAL CUES Additional documentation: N/A UE Dressing Location of UE dressing: Sitting in manual wheelchair Tasks completed: Pullover shirt Overall assist level: PARTIAL / MODERATE ASSISTANCE: LESS THAN HALF (1% - 49%) Additional documentation: MIN A to thread R UE LE Dressing (Underwear / Pants) Location of LE dressing (Underwear / Pants): Sitting in manual wheelchair and Standing at the sink Tasks completed: Elastic waist pants and Incontinence briefs as underwear Overall assist level: PARTIAL / MODERATE ASSISTANCE: LESS THAN HALF (1% - 49%) Additional documentation: MIN A to adjust LB garments at the hips. Putting On / Taking Off Footwear Location of putting on / taking off footwear: Sitting in manual wheelchair Tasks completed: Slip-on shoe(s) Overall assist level: SUPERVISION ASSISTANCE / VERBAL CUES Additional documentation: N/A Toileting Location: SITTING ON STANDARD TOILET Tasks completed: HYGIENE MANAGEMENT, CLOTHING MANAGEMENT PRE-TOILETING, and CLOTHING MANAGEMENT POST-TOILETING Overall assist level: INCIDENTAL TOUCHING ASSISTANCE Additional documentation: CGA for safety while patient managed LB garments standing. MOBILITY: Toilet transfer Location: STANDARD TOILET Overall assist level: INCIDENTAL TOUCHING ASSISTANCE Device: GRAB BARS Additional documentation: CGA for safety Tub / shower transfer Location: WALK-IN SHOWER Overall assist level: PARTIAL / MODERATE ASSISTANCE: LESS THAN HALF (1% - 49%) Device: GRAB BARS Additional documentation: CGA for safety with transfers, MIN A for balance recovery. Bed mobility: SBA supine > sitting EOB Transfers: CGA stand pivot EOB > w/c HEARING / SPEECH / VISION: Expression of ideas and wants Overall assist level: SOME DIFFICULTY Understanding verbal and non-verbal content Overall assist level: UNDERSTANDS Caregiver present (yes / no): Yes: daughter Education & training provided: Role of OT, OT plan of care, ADL training, Compensatory ADL strategies, Bed mobility training, Functional transfer training, Balance training, and Safety education ASSESSMENT: Activity tolerance / response to OT: GOOD PARTICIPATION, GOOD MOTIVATION, and RECEPTIVE TO EDUCATION / TRAINING Progress towards goals: Please refer to Care Plan from this date for progress towards individual goals. PLAN: Therapy Plan: Please refer to most recent Inpatient Rehabilitation Team Conference note for discharge plan, including location, recommended level of supervision, and arrangements. Frequency of therapy: BID SESSIONS 5 DAYS / WEEK TO ADDRESS PREVIOUSLY ESTABLISHED DEFICITS AND GOALS TARA Treviño 08/21/22 * Bell Moffett, SALES HUNTER - 08/21/2022 9:01 AM CDT Speech Language/Pathology SPEECH LANGUAGE PATHOLOGY PROGRESS NOTE Patient's Name: Abena Giron : 1940 Age: 82 y.o. 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 PAIN: Pre Therapy Pain Level:0 Pain Location: Pain Intervention: Post Therapy Pain Level/Response to Intervention:0 OBJECTIVE PRECAUTIONS: fall SWALLOWING: tolerating puree diet/thin liquids with trials of mechanical soft. COGNITION: forgetful at times. COMMUNICATION: dysarthric. TREATMENT ACTIVITIES: oral exercises;speech at sentence level. EDUCATION: PATIENT/FAMILY EDUCATION: discussed diet choices at home Response to Education: verbalized understanding ASSESSMENT Activity Tolerance/Response to S.T.: good Barriers to learning: anxiety,communication Current status: moderate dysarthria, mild oral dysphagia Progress toward goals: Patient continues to progress toward previously set goals which remain appropriate at this time. PLAN Multi-Disciplinary Problems (from Speech Therapy) Active Problems Problem: Swallowing Start Date: 08/12/22 Goal Start Date Expected End Date End Date LTG - Patient will tolerate the least restrictive diet consistency to allow for safe consumption ofdaily meals 08/12/22 08/19/22 -- Problem: Communication/Motor Speech Start Date: 08/12/22 Goal Start Date Expected End Date End Date STG - Patient will participate in oral-motor exercises to improve strength 08/12/22 08/19/22 -- Goal Start Date Expected End Date End Date STG - Patient will use speech intelligibility Intervention at conversational level 08/12/22 08/19/22 -- Frequency of Treatment: bid 5x weekly Recommendations: home with family If this is the last note, consider this the discharge summary. * Lenka Perez PTA - 08/20/2022 4:14 PM CDT Physical Therapy PT PROGRESS NOTE Abena Mendiola Mack 82 y.o. 1940 Past Medical History: Diagnosis Date Adiposity obesity [...] a.fib: loop recorder implanted OTHER SURGICAL HISTORY 2016 Atrial Fibrillation: Cardiovascular Intervention (ablation) SKIN BIOPSY Patient Active Problem List Diagnosis Hypertension Osteoarthritis Hyperlipidemia Coronary artery disease involving [place] coronary artery of [place] heart Paroxysmal atrial fibrillation (CMS/HCC) (HCC) Chronic GERD Anxiety Abdominal aortic aneurysm (AAA) without rupture (HCC) B12 deficiency Sick sinus syndrome (CMS/HCC) (HCC) GENNY (obstructive sleep apnea) History of coronary artery stent placement Cardiac pacemaker in situ 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 With encouragement patient agreed to participate in bed exercises. Patient stating she was exhausted and couldn't push herself anymore. MENTAL STATUS/ORIENTATION: fatigued PAIN: Pre-therapy pain level: 0/10 Pain location: right LE intermittent pain. Pain intervention: patient denies need Post-therapy pain level/response to intervention: patient does not rate. OBJECTIVE PRECAUTIONS: fall risk, aspiration precautions APPEARANCE/POSTURE: patient supine in bed, alarm in place, eyes closed sleeping. MOBILITY DOCUMENTATION: Patient declined mobility due to exhaustion TREATMENT: Supine LE ex's x10 reps with min assist. Patient performs ankle pumps, heel slides, hip abduction and SLR's. Appearance/Posture at end of treatment session: patient supine in bed, alarm in place, call button in reach EDUCATION: PATIENT/FAMILY EDUCATION: patient's daughter present for session. Discussed discharge options for home health versus out patient therapy. Discussed that therapy would begin hands on family teaching tomorrow to prepare for discharge. Response to Education: needs reinforcement ASSESSMENT Activity tolerance/response to PT: patient fatigued and declines mobility at this time, agreed to supine exercises with encouragement. Barriers to learning: Physical and Language Barriers to discharge: Limited participation, Decreased endurance, Upper extremity weakness, and Lower extremity weakness Patient continues progressing toward previously set goals which remain appropriate at this time. PLAN Patient to be seen bid 5x/week to address previously established deficits and goals. * JoseeShelia fischerTARA fan - 08/20/2022 2:05 PM CDT Occupational Therapy NOTE TYPE: OT TREATMENT (CMR DEPARTMENT SESSION) PATIENT'S NAME: Abena Giorn AGE / SEX: 82 y.o. 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) Ischemic stroke (HCC) Acute CVA (cerebrovascular accident) (HCC) Severe malnutrition (CMS/HCC) Past Medical History: Diagnosis Date Adiposity obesity [...] Hyperlipidemia Hypertension Hypertension Myocardial infarction (CMS/HCC) (HCC) 2015 Sleep apnea Vertigo Past Surgical History: Procedure Laterality Date ABDOMINAL SURGERY CARDIAC PACEMAKER PLACEMENT CATARACT EXTRACTION W/ INTRAOCULAR LENS IMPLANT Bilateral CHOLECYSTECTOMY 1981 Cholecystectomy EYE SURGERY OTHER SURGICAL HISTORY Right 1980 partial oopherectomy OTHER SURGICAL HISTORY heart cath with stent 2013 [place]/[facility] OTHER SURGICAL HISTORY 2016 a.fib: loop recorder implanted OTHER SURGICAL HISTORY 2016 Atrial Fibrillation: Cardiovascular Intervention (ablation) SKIN BIOPSY PRECAUTIONS (INCLUDING WEIGHT-BEARING): R side weakness, Fall risk, and Bed / chair alarm SUBJECTIVE: I'm just so tired THERAPY PAIN: PRE-THERAPY PAIN LEVEL: 0 / 10 PAIN LOCATION: No pain - Location N/A PAIN INTERVENTION(S): No pain - Intervention N/A POST-THERAPY PAIN LEVEL: 0 / 10 PAIN SCALE USED: 0-10 SCALE OBJECTIVE: APPEARANCE: PRESENTATION UPON OT ARRIVAL: PATIENT Sitting in bedside recliner PRESENTATION UPON OT DEPARTURE: PATIENT Sitting in manual wheelchair in recreational day room BED / CHAIR ALARM IN PLACE AND ACTIVATED UPON OT DEPARTURE: Yes CALL LIGHT WITHIN ARMS REACH OF PATIENT AT END OF SESSION: No - due to patient in recreational day room COMPLETED PATIENT HANDOFF AND NOTIFIED Physical Therapist / Physical Therapist Ultrasound Tester, NAME: Bria, OF PATIENT'S LOCATION AND FUNCTIONAL STATUS UPON COMPLETION OF SESSION COGNITIVE / PERCEPTUAL: Alert, pleasant, cooperative. TOILETING LOCATION: SITTING ON STANDARD TOILET TASKS COMPLETED: HYGIENE MANAGEMENT, CLOTHING MANAGEMENT PRE-TOILETING, and CLOTHING MANAGEMENT POST-TOILETING OVERALL ASSIST LEVEL: PARTIAL / MODERATE ASSISTANCE: LESS THAN HALF (1% - 49%) ADDITIONAL DOCUMENTATION: MIN A to adjust LB garments post toileting. MOBILITY: TOILET TRANSFER LOCATION: STANDARD TOILET OVERALL ASSIST LEVEL: INCIDENTAL TOUCHING ASSISTANCE DEVICE: GRAB BARS ADDITIONAL DOCUMENTATION: CGA for transfer TRANSFERS: CGA stand pivot grab bars <> toilet LIVING SKILLS: IADL ACTIVITY: Med management (OVERALL ASSIST LEVEL): MAX A LOCATION: sitting in manual w/c in OT gym ACTIVITY DESCRIPTION: Set up of three different prescription bottles with pill organizer, initiatedtask with vc's for sequencing to facilitate activity. Patient required max vc's to initiate and problem solve activity. Patient easily frustrated by activity. Overall patient required 90% verbal and physical assistance. CAREGIVER PRESENT (YES / NO): Yes: daughters EDUCATION & TRAINING PROVIDED: Role of OT, OT plan of care, ADL training, Functional transfer training, Balance training, Safety education, and Medication management ASSESSMENT: ACTIVITY TOLERANCE / RESPONSE TO OT: GOOD PARTICIPATION, GOOD MOTIVATION, RECEPTIVE TO EDUCATION / TRAINING, AGITATED, and EMOTIONAL PROGRESS TOWARDS GOALS: PLEASE REFER TO CARE PLAN FROM THIS DATE FOR PROGRESS TOWARDS INDIVIDUAL GOALS PLAN: PLEASE REFER TO MOST RECENT INPATIENT REHABILITATION TEAM CONFERENCE NOTE FOR DISCHARGE PLAN, INCLUDING LOCATION, RECOMMENDED LEVEL OF SUPERVISION AND ARRANGEMENTS. FREQUENCY OF THERAPY: BID SESSIONS 5 DAYS / WEEK TO ADDRESS PREVIOUSLY ESTABLISHED DEFICITS AND GOALS TARA Treviño 08/20/22 * Bell Moffett, SALES HUNTER - 08/20/2022 1:33 PM CDT Speech Language/Pathology SPEECH LANGUAGE PATHOLOGY PROGRESS NOTE Patient's Name: Abena Giron : 1940 Age: 82 y.o. 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) Ischemic stroke (HCC) Acute CVA (cerebrovascular accident) (HCC) Severe malnutrition (CMS/HCC) Past Medical History: Diagnosis Date Adiposity obesity [...] Hyperlipidemia Hypertension Hypertension Myocardial infarction (CMS/HCC) (HCC) 2015 Sleep apnea Vertigo Past Surgical History: Procedure Laterality Date ABDOMINAL SURGERY CARDIAC PACEMAKER PLACEMENT CATARACT EXTRACTION W/ INTRAOCULAR LENS IMPLANT Bilateral CHOLECYSTECTOMY 1981 Cholecystectomy EYE SURGERY OTHER SURGICAL HISTORY Right 1980 partial oopherectomy OTHER SURGICAL HISTORY heart cath with stent 2014 [place]/[facility] OTHER SURGICAL HISTORY 2016 a.fib: loop recorder implanted OTHER SURGICAL HISTORY 2016 Atrial Fibrillation: Cardiovascular Intervention (ablation) SKIN BIOPSY SUBJECTIVE MENTAL STATUS: alert,oriented. PAIN: Pre Therapy Pain Level:0 Pain Location: Pain Intervention: Post Therapy Pain Level/Response to Intervention:0 OBJECTIVE PRECAUTIONS: fall SWALLOWING: tolerating puree diet/thin with SALES HUNTER to continue trialing mechanical soft COGNITION: intact COMMUNICATION: dysarthric TREATMENT ACTIVITIES: speech at conversational level: 80% intelligible EDUCATION: PATIENT/FAMILY EDUCATION: therapy schedule Response to Education: verbalized understanding ASSESSMENT Activity Tolerance/Response to S.T.: good Barriers to learning: anxiety,communication Current status: moderate dysarthria, mild oral dysphagia Progress toward goals: Patient continues to progress toward previously set goals which remain appropriate at this time. PLAN Multi-Disciplinary Problems (from Speech Therapy) Active Problems Problem: Swallowing Start Date: 08/12/22 Goal Start Date Expected End Date End Date LTG - Patient will tolerate the least restrictive diet consistency to allow for safe consumption ofdaily meals 08/12/22 08/19/22 -- Problem: Communication/Motor Speech Start Date: 08/12/22 Goal Start Date Expected End Date End Date STG - Patient will participate in oral-motor exercises to improve strength 08/12/22 08/19/22 -- Goal Start Date Expected End Date End Date STG - Patient will identify and utilize word retrieval Intervention in structured tasks 08/12/22 08/19/22 -- Goal Start Date Expected End Date End Date STG - Patient will use speech intelligibility Intervention at conversational level 08/12/22 08/19/22 -- Frequency of Treatment: bid 5x weekly Recommendations: home with family If this is the last note, consider this the discharge summary. * Lenka Perez, LIBORIO - 08/20/2022 12:16 PM CDT Physical Therapy PT PROGRESS NOTE Abena Driscolldwin 82 y.o. 1940 Past Medical History: Diagnosis Date Adiposity obesity [...] a.fib: loop recorder implanted OTHER SURGICAL HISTORY 2016 Atrial Fibrillation: Cardiovascular Intervention (ablation) SKIN BIOPSY Patient Active Problem List Diagnosis Hypertension Osteoarthritis Hyperlipidemia Coronary artery disease involving [place] coronary artery of [place] heart Paroxysmal atrial fibrillation (CMS/HCC) ([facility]) Chronic GERD Anxiety Abdominal aortic aneurysm (AAA) without rupture ([facility]) B12 deficiency Sick sinus syndrome (CMS/HCC) ([facility]) GENNY (obstructive sleep apnea) History of coronary artery stent placement Cardiac pacemaker in situ 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 Patient did complain of SHAYAN LE pain. MENTAL STATUS/ORIENTATION: awake PAIN: Pre-therapy pain level: 10 Pain location: SHAYAN LE/calves Pain intervention: patient denies need Post-therapy pain level/response to intervention: 07/01 OBJECTIVE PRECAUTIONS: fall risk, aspiration precautions APPEARANCE/POSTURE: patient sitting in wheelchair, alarm in place, agreeable to therapy. MOBILITY DOCUMENTATION: Bed Mobility: supine to and from sit with supervision assist Transfers: sit to and from stand with CG/SBA with cues for hand placement and safety. Transfers wheelchair to recliner chair CG assist, stand pivot transfer Ambulation: wheeled walker 80'x1, 25'x2, 20'x2 CG assist with decreased kimberly, decreased right foot clearance, decreased right heel strike and push off, flexed posture, downward gaze Stairs: 4 stairs with left handrail ascending CG/Min assist leading with right LE, descending with right handrail leading with left LE min assist. Wheelchair management & propulsion: using left UE and SHAYAN LE's 40'x1 and supervision assist with patient needing increased time to complete task. TREATMENT: Nu-Step performed for 10 minutes, seat 6, arms 8, load 4, 466 steps. Bed mobility performed 2x working on transferring to higher surfaced bed as patient has at home. Attempted using aerobic step to step onto to assist onto bed. Appearance/Posture at end of treatment session: patient sitting in recliner chair, alarm in place, call button in reach. EDUCATION: PATIENT/FAMILY EDUCATION: patient educated on gait, transfers, bed mobility, and safety Response to Education: needs reinforcement ASSESSMENT Activity tolerance/response to PT: patient completes all activities with rest breaks. Patient c/o leg weakness and pain throughout session. RN and MD notified. Barriers to learning: Physical Barriers to discharge: Limited safety awareness, Decreased endurance, Decreased sensation, Upper extremity weakness, and Lower extremity weakness Patient continues progressing toward previously set goals which remain appropriate at this time. PLAN Patient to be seen bid 5x/week to address previously established deficits and goals. * Bell Moffett SLP - 08/20/2022 12:05 PM CDT Speech Language/Pathology PROGRESS NOTE Time In; 1155 Time Out: 1210 Observed patient eating potato soup at lunch. (Ok'd by [employer]ES [employer]TER). Patient taking small bites without signs of aspiration or pocketing. Reviewed precautions with patient and daughter in the room. * Cindi Hagen RD - 08/20/2022 11:35 AM CDT Nutrition Assessment Pt meets criteria for severe protein calorie malnutrition due to decreased energy intake and weightloss, Present on Admission, reference ASPEN guidelines. RD plan: ordering Ensure Plus High PRO bid, encouraged po intakes. ASPEN/AND Malnutrition Screening ASPEN/AND Malnutrition Screening: Acute illness or injury severe Nutrition focused physical exam appropriate?: Nutrition focused physical exam not appropriate at this time Acute Illness/Injury Severe Energy Intake: < or equal to 50% energy intake compared to estimated energy needs > (or equalto) 5 days Weight Loss: > 2% in 1 week (3.7% Wt loss in 8 days) Body Fat: (ELIZABET) Muscle Mass: (ELIZABET) Patient Meets Criteria for Severe Malnutrition: Yes Reason for Assessment: Follow Up Encounter Date: 08/20/22 11:37 AM Nutrition Assessment and Plan: Patient is a 82 y.o. female. Admit Dx: Acute CVA (cerebrovascular accident) (HCC) [I63.9]. Admittedon 08/12/2022, current LOS is 8 days. Pt was working w therapy but available for brief interview. Reported appetite has been fair on pureed diet , mostly eating sides as meats are not appetizing to her. Family has been bringing in some options like cottage cheese and canned meats (w approval from [employer] as pt allowed to be on mechanical soft but does not feel ready for it). Does not appear to be meeting nutrition needs w current intakes as pt w 2.7kg/3.7% Wt loss in 8 days, clinically significant. Meets criteria for acute, severe malnutrition. Denied N/V/D/C. GI WNL. Skin intact. Will continue pureed diet and order Ensure Plus High PRO bid. Encouraged po intakes and will continue to follow nutrition parameters and plans of care. Current diet order: Adult Diet Modified Consistency; Pureed Pt intake is inadequate. PO intakes: 25% x7; 50% x 3; 75% x 1; 100% x 2 Nutrition Diagnosis 1: Protein-Calorie Malnutrition - Severe Related to: Acute illness/injury Evidenced by: Patient interview, Inadequate energy intake, Weight loss Nutrition Diagnosis 2: Swallowing difficultyRelated to: Oral pharyngealEvidenced by: Speech eval, Patient interview Interventions: Assess for nutrition changes, Follow up per policy, Encouragement, Medical food supplement Monitoring and Evaluation: Appetite, Blood glucoses, PO intake, Supplement tolerance, Diet-related questions, Swallow function, Discharge plans, Food preferences, Weight changes, I/O, Labs, Plan of care Goals: Adequate nutrition to meet estimated needs by next assessment, Oral intake to meet 75% estimated nutritional needs by next assessment, Tolerance of medical food supplement by next assessment, Patient/caregiver able to teach back understanding of role of diet in disease process prior to discharge, Diet consistency appropriate for patient needs during stay Estimated needs: Total Kcal/kg Estimated Needs : 1917 based on Kcal/k. Type of Weight Used for Estimated Kcals:Current Total Protein Estimated Needs (gm): 82.2 Protein Needs Based on g/k.2 Type of Weight Used for Estimated Protein : Current. Estimated Fluid Needs Type of Weight Used for Estimated Fluid Needs: Current Fluid Needs Based on : 1 ml/kcal Total Fluid Estimated Needs: 1917 Objective Anthropometrics Weight: 68.5 kg (151 lb 0.2 oz) Admission Weight : 71.2 kg Weight Change: -2.70 kg (-5.95 lbs) IBW/kg (Calculated) : 47.6 kg Height: 154.9 cm (5' 0.98 ) Weight in (lb) to have BMI = 25: 132 BMI (Calculated): 28.5 BMI Classification: BMI 25.0 - 29.9 Overweight 3 Day I/O Summary No intake/output data recorded. Temp: 36.2 ??C (97.1 ??F) Past Medical History: Diagnosis Date Adiposity obesity [...] infarction (CMS/HCC) (HCC) 2014 Sleep apnea Vertigo Medications and Lab Review: Scheduled Meds: apixaban, 5 mg, oral, Q12H NAVEED aspirin, 81 mg, oral, Daily dapagliflozin, 10 mg, oral, Daily fluticasone propionate, 1 spray, each nostril, Daily furosemide, 40 mg, oral, Daily [Held by Provider] losartan, 12.5 mg, oral, Daily metoprolol XL, 12.5 mg, oral, Daily rosuvastatin, 10 mg, oral, Nightly spironolactone, 12.5 mg, oral, Daily Continuous Infusions: Sodium Date Value Ref Range Status 08/19/2022 142 135 - 145 mmol/L Final Potassium, pl Date Value Ref Range Status 08/19/2022 3.9 3.3 - 4.9 mmol/L Final BUN Date Value Ref Range Status 08/19/2022 25 8 - 25 mg/dL Final Creatinine Date Value Ref Range Status 08/19/2022 0.77 0.60 - 1.10 mg/dL Final Albumin Date Value Ref Range Status 08/19/2022 3.9 3.5 - 5.0 g/dL Final Calcium Date Value Ref Range Status 08/19/2022 9.6 8.5 - 10.3 mg/dL Final Lab Results Component Value Date HGBA1C 6.0 (H) 08/03/2022 Lab Results Component Value Date GLUCOSE 120 08/19/2022 Nursing Assessment: Last BM Date: 08/19/22 Bowel Sounds (All Quadrants): Active Sai Scale Score: 19 Skin Integrity: Bruising Diet Instructions Continue diet recommended per speech therapy (08/20-pureed w trials of mechanical soft w family/[employer])with Ensure/Boost 1-2 times per day. Call Dietitian office at with any diet/nutrition related questions. Nutrition Follow-Up : 08/23/[address],LD * Mariah Tripp COTA - 08/20/2022 11:26 AM CDT Occupational Therapy NOTE / SESSION TYPE: OT ROUNDS UPDATE PATIENT'S NAME: Abena Giron AGE / SEX: 82 y.o. / female ROOM: [place] [id number] : 1940 DATE: 08/20/22 Multi-Disciplinary Problems (from Occupational Therapy) Active Problems Problem: OT [facility] Start Date: 08/13/22 Goal Start Date Expected End Date End Date OT G - [facility] 1 08/13/22 08/26/22 -- Goal Details: Pt. Will complete BADL routine including simulated tub/shower bathing, grooming, oralhygiene, UB/LB dressing, and footwear with MOD I one time. Goal Start Date Expected End Date End Date OT G - [facility] 2 08/13/22 08/26/22 -- Goal Details: Pt. Will complete toileting routine and toilet transfer with MOD I one time Goal Start Date Expected End Date End Date OT G - [facility] 3 08/13/22 08/26/22 -- Goal Details: Pt. Will complete functional transfers including car, tub/shower, and toilet with EV one time Goal Start Date Expected End Date End Date OT G - [facility] 4 08/13/22 08/26/22 -- Goal Details: Pt. Will complete UE GMC/FMC, proprioception, oculomotor, and strengthening HEP with MOD I one time Goal Start Date Expected End Date End Date OT LTG - [facility] 5 08/13/22 08/26/22 -- Goal Details: Pt. Will complete medication/bill management activity with 100% accuracy with MOD I one time Goal Start Date Expected End Date End Date OT [facility] - [facility] 6 08/13/22 08/26/22 -- Goal Details: Pt. Will complete basic IADL tasks such as laundry, light meal prep, and light housekeeping with MOD I one time. Goal Start Date Expected End Date End Date [facility] - [facility] 7 08/13/22 08/26/22 -- Goal Details: Pt. Will complete functional/meaningful activity in standing for 10+ minutes with EV one time Goal Start Date Expected End Date End Date OT [facility] - [facility] 8 08/13/22 08/26/22 -- Goal Details: Pt. Will complete meaningful gardening task with MOD I one time Goal Start Date Expected End Date End Date [facility] - [facility] 9 08/13/22 08/26/22 -- Goal Details: Pt.'s family will be present for one OT session and be aware of discharge needs/plans. Goal Start Date Expected End Date End Date [facility] 08/14/22 08/26/22 -- Goal Details: Pt. Will use compensatory strategies during visual scanning activity to item retrievewith 100% accuracy CURRENT FUNCTIONAL STATUS: Transfers: CGA Bathing: CGA Oral Hygiene: Set-up Grooming: Set-up UB dressing: MIN LB dressing: MIN Footwear: SPV Toileting: CGA STRENGTHS: MOTIVATED, GOOD FAMILY / SOCIAL SUPPORT, ABLE TO TOLERATE INPATIENT REHAB, GOOD PREMORBID FUNCTIONAL STATUS, and LIVING IN THE COMMUNITY PREMORBIDLY BARRIERS: DECREASED ACTIVITY TOLERANCE, DECREASED UE ROM / STRENGTH / COORDINATION, DECREASED MOBILITY, DECREASED BALANCE, and LANGUAGE IMPAIRMENT OVERCOMING BARRIERS: ADL training, Compensatory ADL strategies, Balance activities, Functional transfer training, UE home exercise program education, Family training as appropriate, IADL training, and Energy conservation techniques EQUIPMENT RECOMMENDED FOR DISCHARGE: WHEELED WALKER, SHOWER CHAIR, and TONG HOOKER TARA Treviño 08/20/22 11:26 AM . * Opal Mace MD - 08/20/2022 10:45 AM CDT INPATIENT REHABILITATION DAILY PROGRESS NOTE CHIEF COMPLAINT: CVA SUBJECTIVE: Slept better last night. Wants to go home soon. Daughter present. OBJECTIVE: VITALS: Vitals: 08/19/22 0055 08/19/22 0610 08/19/22 2044 08/20/22 0747 BP: 115/77 110/55 113/56 BP Location: Right arm Right arm Left arm Patient Position: Lying Lying Lying Pulse: 68 70 73 Resp: 18 17 18 Temp: 36.6 ??C (97.8 ??F) 36.7 ??C (98.1 ??F) 36.2 ??C (97.1 ??F) TempSrc: Oral Oral Temporal SpO2: 98% 94% 97% Weight: 68.5 kg (151 lb 0.2 oz) Height: PHYSICAL EXAM: General: no acute distress, in bed HEENT: normocephalic, trachea midline Heart: rrr Lungs: ctab GI: soft, nontender Neuro: alert, oriented, dysarthric LABS/RADIOLOGY/DIAGNOSTIC REVIEW Recent Labs Lab Units 08/19/22 0825 WBC K/cumm 9.6 HEMOGLOBIN g/dL 12.7 HEMATOCRIT % 40.4 PLATELETS K/cumm 372 Recent Labs Lab Units 08/19/22 0825 SODIUM mmol/L 142 POTASSIUM PLASMA mmol/L 3.9 CHLORIDE mmol/L 106 CO2 mmol/L 23 ANIONGAP mmol/L 13 GLUCOSE mg/dL 120 BUN SERUM mg/dL 25 CREATININE mg/dL 0.77 CALCIUM mg/dL 9.6 ALBUMIN g/dL 3.9 ALK PHOS Units/L 39* ALT Units/L 16 AST Units/L 27 BILIRUBIN TOTAL mg/dL 0.7 Recent Labs Lab Units 08/19/22 0825 GLUCOSE mg/dL 120 OT Functional Mobility: 08/13 transfers: MIN/CGA OT Self Care: 08/13 bathing/toileting CGA, UB/LB dressing/footwear MIN, oral hygiene/grooming Set-up [employer] Cognition: oriented x3 [employer] Communication: word finding deficits and dysarthria [employer] Swallowing: assessed at . Patient with oral dysphagia/puree diet/thin liquids. PT Functional Mobility: 08/13/22: Bed Mobility: CG assist for sit to/from supine, increased time needed to sit up and cues to not hold breath. Supervision with verbal cues for technique for rolling. Transfers: CG assist for sit to/from stand with w/w and maximal cues for hand placement. CG/min assist for sit to/from stand with SBQC, cues for upright posture. Ambulation: CG assist for 50' with w/w,cues for R hand to stay on walker, fast/impulsive kimberly, w/w too far in front and poor obstacle avoidance. Stairs: min assist for 4 steps with bilateral handrail, moderate cues for LE sequencing. Increased instability during descent with associated reports of weakness. No results found. MEDICATIONS: Current Facility-Administered Medications: acetaminophen (TYLENOL) tablet 650 mg, 650 mg, oral, Q6H PRN, Opal Mace MD apixaban (ELIQUIS) tablet 5 mg, 5 mg, oral, Q12H NAVEED, Opal Mace MD, 5 mg at 08/20/22 0753 aspirin chewable tablet 81 mg, 81 mg, oral, Daily, Opal Mace MD, 81 mg at 08/20/22 0753 calcium carbonate (TUMS) chewable tablet 1,000 mg, 400 mg of elemental calcium, oral, TID PRN, Opal Mace MD dapagliflozin (FARXIGA) tablet 10 mg, 10 mg, oral, Daily, Opal Mace MD, 10 mg at08/19/22 0950 fluticasone propionate (FLONASE) 50 mcg/actuation nasal spray 1 spray, 1 spray, each nostril, Daily, Opal Mace MD, 1 spray at 08/19/22 0957 furosemide (LASIX) tablet 40 mg, 40 mg, oral, Daily, Opal Mace MD, 40 mg at 08/20/22 0754 [Held by Provider] losartan (COZAAR) tablet 12.5 mg, 12.5 mg, oral, Daily, Opal Mace MD, 12.5 mg at 08/13/22 0821 metoprolol XL (TOPROL-XL) extended release tablet 12.5 mg, 12.5 mg, oral, Daily, Opal Mace MD, 12.5 mg at 08/20/22 0753 ondansetron ODT (ZOFRAN-ODT) disintegrating tablet 4 mg, 4 mg, oral, TID PRN, Opal Mace MD, 4 mg at 08/14/22999 ramelteon (ROZEREM) tablet 8 mg, 8 mg, oral, Nightly PRN, Opal Mace MD, 8 mg at 08/19/222018 rosuvastatin (CRESTOR) tablet 10 mg, 10 mg, oral, Nightly, Opal Mace MD, 10 mg at 08/19/222018 senna-docusate (PERICOLACE) 8.6-50 mg per tablet 1 tablet, 1 tablet, oral, BID PRN, Opal Mace MD simethicone (MYLICON) chewable tablet 80 mg, 80 mg, oral, TID PRN, Opal Haywood MD spironolactone (ALDACTONE) split tablet 12.5 mg, 12.5 mg, oral, Daily, Opal Haywood MD, 12.5 mg at 08/20/22 0754 traZODone (DESYREL) tablet 25 mg, 25 mg, oral, Nightly PRN, Opal Mace MD ASSESSMENT/PLAN: MEDICAL PLAN OF CARE: 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, TNK Dysphagia Right hemiparesis Dysarthria Impaired mobility, ADLs, transfers, gait, balance, strength, endurance, speech, cognition, swallow Continue PT, OT Continue [employer] Continue Aspirin 81mg, Eliquis 5mg bid, rosuvastatin 10mg qhs HLD: continue rosuvastatin 10mg qhs HTN Afib s/p AV node ablation Sick sinus syndrome s/p pacemaker AAA HFrEF ER 20% CAD s/p stent 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 Okay at rest. Watch closely 08/16: bp readings varying. Asymptomatic this morning 08/19: bp better controlled 08/20: controlled. BP lower on left arm than right arm GERD: monitor for symptoms, tums prn Anemia : monitor hgb Anxiety: monitor Pain: Continue Tylenol 650mg q6h prn Bowels: Continue miralax daily, pericolace bid prn, simethicone prn. 08/14: dc miralax, family to bring in patient's home medicine Nausea: Continue Zofran prn, Tums prn Insomnia: Continue trazodone 25mg qhs prn Severe malnutrition: medical record consultant consulted Diet: puree/thin, NO GRAVY DVT ppx: eliquis Precautions: Fall, aspiration Weightbearing status: Full Code: LIMITED - No CPR Care discussed with Nursing REHAB PLAN OF CARE: Patient's expected intensity and duration of participation in the interdisciplinary rehabilitation program and disciplines that comprise this team: Therapies required to achieve goals:The patient will benefit from integrated coordination of care from the following interdisciplinary services: Medical Supervision, 24 hours Rehabilitation Nursing, Physical Therapy, Occupational Therapy, Case Management; Speech Therapy; Social Work Frequency and duration of therapies expect to be:Expected intensity and frequency of participation in the interdisciplinary rehab program is: 3 hours of therapy 5 days per week for the duration of length of stay Expected intensity and frequency of Physical Therapy (PT): 1.5 hours per day over 5-7 days for the duration of length of stay Expected intensity and frequency of Occupational Therapy (OT): 1.5 hours per day over 5-7 days per week for the duration of length of stay Expected intensity and frequency of Speech Therapy ([employer]AL[employer]TER): 1 hour per day per day over 5-7 days per week for the duration of length of stay FUNCTIONAL CHANGE: DISCHARGE PLANNING: Expected Discharge Date: TBD Equipment: TBD Family Training: SW to set up Education: Follow up Appointments: PCP 1-2weeks Neurology 1-2 weeks Cardiology 1-2 weeks Opal Mace MD Physical Medicine and Rehabilitation I can be reached from 7am-7pm through phone or perfect serve. Hospitalist front desk receptionist from 7pm-7am * Mariah Tripp COTA - 08/20/2022 9:58 AM CDT Occupational Therapy NOTE TYPE: OT TREATMENT (CM[facility] BEDSIDE SESSION) Patient's Name: Abena Giron Age / Sex: 82 y.o. / female Room: [place] [id number] : 1940 Date: 08/20/22 Time In: 1000 Time Out: 1100 Patient Active Problem List Diagnosis Hypertension Osteoarthritis Hyperlipidemia Coronary artery disease involving [place] coronary artery of [place] heart Paroxysmal atrial fibrillation (CMS/HCC) (HCC) Chronic GERD Anxiety Abdominal aortic aneurysm (AAA) without rupture (HCC) B12 deficiency Sick sinus syndrome (CMS/HCC) (HCC) GENNY (obstructive sleep apnea) History of coronary artery stent placement Cardiac pacemaker in situ 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) Ischemic stroke (HCC) Acute CVA (cerebrovascular accident) (HCC) Past Medical History: Diagnosis Date Adiposity obesity [...] Hyperlipidemia Hypertension Hypertension Myocardial infarction (CMS/HCC) (HCC) 2015 Sleep apnea Vertigo Past Surgical History: Procedure Laterality Date ABDOMINAL SURGERY CARDIAC PACEMAKER PLACEMENT CATARACT EXTRACTION W/ INTRAOCULAR LENS IMPLANT Bilateral CHOLECYSTECTOMY 1981 Cholecystectomy EYE SURGERY OTHER SURGICAL HISTORY Right 1980 partial oopherectomy OTHER SURGICAL HISTORY heart cath with stent 2014 [place]/[facility] OTHER SURGICAL HISTORY 2016 a.fib: loop recorder implanted OTHER SURGICAL HISTORY 2016 Atrial Fibrillation: Cardiovascular Intervention (ablation) SKIN BIOPSY Precautions (Including Weight-Bearing): Fall risk and Bed / chair alarm SUBJECTIVE: My fingers feel numb Therapy Pain: Pre-therapy pain level: 0 / 10 Pain location: No pain - Location N/A Pain intervention(s): No pain - Intervention N/A Post-therapy pain level: 0 / 10 Pain scale used: 0-10 SCALE OBJECTIVE: APPEARANCE: Presentation upon OT arrival: Patient Sitting in bedside recliner Presentation upon OT departure: PATIENT Sitting in manual wheelchair with staff assistance Bed / chair alarm in place and activated upon OT departure: Yes Call light within arms reach of patient at end of session: No - due to patient taken to physical therapy gym Completed patient handoff and notified Physical Therapist / Physical Therapist Ultrasound Tester, name: Bria, of patient's location and functional status upon completion of session. COGNITIVE / PERCEPTUAL: A & O x 4 SELF CARE: Shower / Bathe Self Type of bathing: WET WALK-IN SHOWER Location of shower / bathe self: Sitting on fold-down shower bench Tasks completed: ALL COMPONENTS Components that required assistance (if applicable): NONE, CGA ASSIST PERINEAL AREA, and CGA ASSISTBUTTOCKS Overall assist level: INCIDENTAL TOUCHING ASSISTANCE Adaptive equipment (if applicable): handheld shower nozzle and tub bench Additional documentation: CGA for safety while patient stood to complete andrew hygiene. Patient completed all other components while sitting with extended time needed . Oral Hygiene Location of oral hygiene: Sitting in manual wheelchair Overall assist level: SUPERVISION ASSISTANCE / VERBAL CUES Additional documentation: N/A Other Grooming Tasks Location of other grooming tasks: Sitting in manual wheelchair Tasks completed: COMBING HAIR Overall assist level: SUPERVISION ASSISTANCE / VERBAL CUES Additional documentation: N/A UE Dressing Location of UE dressing: Sitting in manual wheelchair Tasks completed: Pullover shirt Overall assist level: PARTIAL / MODERATE ASSISTANCE: LESS THAN HALF (1% - 49%) Additional documentation: MIN A for R UE LE Dressing (Underwear / Pants) Location of LE dressing (Underwear / Pants): Sitting in manual wheelchair and Standing at the sink Tasks completed: Underwear and Elastic waist pants Overall assist level: PARTIAL / MODERATE ASSISTANCE: LESS THAN HALF (1% - 49%) Additional documentation: Patient uses crossover method to thread B LE's. MIN A to pull garments past hip components. Putting On / Taking Off Footwear Location of putting on / taking off footwear: Sitting in manual wheelchair Tasks completed: Slip-on shoe(s) Overall assist level: SUPERVISION ASSISTANCE / VERBAL CUES Additional documentation: N/A Toileting Location: SITTING ON STANDARD TOILET Tasks completed: HYGIENE MANAGEMENT, CLOTHING MANAGEMENT PRE-TOILETING, and CLOTHING MANAGEMENT POST-TOILETING Overall assist level: PARTIAL / MODERATE ASSISTANCE: LESS THAN HALF (1% - 49%) Additional documentation: MIN A to manage LB garments while patient stood with CGA MOBILITY: Toilet transfer Location: STANDARD TOILET Overall assist level: INCIDENTAL TOUCHING ASSISTANCE Device: GRAB BARS Additional documentation: CGA with grab bars Tub / shower transfer Location: WALK-IN SHOWER Overall assist level: INCIDENTAL TOUCHING ASSISTANCE Device: GRAB BARS Additional documentation: CGA for safety Transfers: CGA sit to stand bedside recliner > bathroom with w/w CGA sit to stand shower bench with grab bars CGA sit to stand toilet with grab bars HEARING / SPEECH / VISION: Expression of ideas and wants Overall assist level: SOME DIFFICULTY Understanding verbal and non-verbal content Overall assist level: UNDERSTANDS UE THERAPEUTIC EXERCISES: EXERCISE TYPE: R UE FINE MOTOR COORDINATION and R UE GROSS MOTOR COORDINATION MUSCLE GROUP(S): Hands and fingers ASSIST LEVEL: INITIAL VISUAL DEMONSTRATION WITH VC's LOCATION OF COMPLETION: Sitting in manual wc in OT gym TOLERANCE: Patient tolerated exercises well with occasional discomfort of R UE secondary to arthritis Caregiver present (yes / no): daughter Education & training provided: Role of OT, OT plan of care, ADL training, Compensatory ADL strategies, Yuriy / One-handed techniques, Functional transfer training, Balance training, and Safety education ASSESSMENT: Activity tolerance / response to OT: GOOD PARTICIPATION, GOOD MOTIVATION, and RECEPTIVE TO EDUCATION / TRAINING Progress towards goals: Please refer to Care Plan from this date for progress towards individual goals. PLAN: Therapy Plan: Please refer to most recent Inpatient Rehabilitation Team Conference note for discharge plan, including location, recommended level of supervision, and arrangements. Frequency of therapy: BID SESSIONS 5 DAYS / WEEK TO ADDRESS PREVIOUSLY ESTABLISHED DEFICITS AND GOALS TARA Treviño 08/20/22 * Bell Moffett, SALES [employer]TER - 08/20/2022 8:53 AM CDT CLINICAL SWALLOW EVALUATION GENERAL INFORMATION Reason for Swallow Evaluation Referral:assess for diet upgrade Ordering Physician:Dr. Margarito Diet Prior to this Study:puree diet,thin liquids Time In: 825 Time Out: 855 ORAL MOTOR Oral Motor; mild right labial weakness Dentition:adequate OBJECTIVE Respiratory Status:room air History of Intubation:no Tracheostomy:no Vocal Quality:no Vocal Intensity:wnl Secretion Management:yes Behavior/Cognition:wnl Pain: Pre Therapy Pain Level:0 Pain Location: Pain Intervention: Post Therapy Pain Level/Response to Intervention:0 Patient Positionin degrees upright CLINICAL SWALLOW ASSESSMENT CONSISTENCIES ASSESSED: Thin Liquids Presentation:via cup and straw Oral:mild leakage from right via cup only Pharyngeal:cough x1 with large bolus via cup Puree: Presentation:via spoon Oral:wnl Pharyngeal:wnl Solid Presentation:via spoon Oral:slow oral transit Pharyngeal:wnl RECOMMENDATIONS:Patient could likely upgrade to mechanical soft however does not feel like she is ready . Stay on puree diet for now. Risk for Aspiration:mild Solid Recommendations:Patient does not want to upgrade to mechanical soft at this time due to anxiety with choking. Patient can continue to trial soft foods with SALES HUNTER and family Liquid Recommendations:thin Recommended Form of Medications:as tolerated Assistance with Feeding/Swallowing:set up Compensatory Strategies/Modifications:small sips with straw, small bites Postural Changes:upright SALES HUNTER Frequency:bid 5x weekly Education:discussed with patient and family. * Opal Mace MD - 08/19/2022 10:43 AM CDT INPATIENT REHABILITATION DAILY PROGRESS NOTE CHIEF COMPLAINT: CVA SUBJECTIVE: Changed rooms. Still did not sleep well. Does not want to try medicine. Reports mouth is dry - doesnot want medicine for this. Daughter present OBJECTIVE: VITALS: Vitals: 08/18/22 1912 08/18/22 2101 08/19/22 0055 08/19/22 0610 BP: (!) 77/52 110/68 115/77 BP Location: Right arm Right arm Patient Position: Lying Pulse: 61 72 68 Resp: 18 18 Temp: 36.2 ??C (97.1 ??F) 36.6 ??C (97.8 ??F) TempSrc: Oral SpO2: 97% 99% 98% Weight: 68.5 kg (151 lb 0.2 oz) Height: PHYSICAL EXAM: General: no acute distress, in bed HEENT: normocephalic, trachea midline Heart: rrr Lungs: ctab GI: soft, nontender Neuro: alert, oriented, dysarthric LABS/RADIOLOGY/DIAGNOSTIC REVIEW Recent Labs Lab Units 08/19/22 0825 WBC K/cumm 9.6 HEMOGLOBIN g/dL 12.7 HEMATOCRIT % 40.4 PLATELETS K/cumm 372 Recent Labs Lab Units 08/19/22 0825 SODIUM mmol/L 142 POTASSIUM PLASMA mmol/L 3.9 CHLORIDE mmol/L 106 CO2 mmol/L 23 ANIONGAP mmol/L 13 GLUCOSE mg/dL 120 BUN SERUM mg/dL 25 CREATININE mg/dL 0.77 CALCIUM mg/dL 9.6 ALBUMIN g/dL 3.9 ALK PHOS Units/L 39* ALT Units/L 16 AST Units/L 27 BILIRUBIN TOTAL mg/dL 0.7 Recent Labs Lab Units 08/19/22 0825 08/13/22 0937 GLUCOSE mg/dL 120 105 OT Functional Mobility: 08/13 transfers: MIN/CGA OT Self Care: 08/13 bathing/toileting CGA, UB/LB dressing/footwear MIN, oral hygiene/grooming Set-up SALES HUNTER Cognition: oriented x3 SALES HUNTER Communication: word finding deficits and dysarthria SALES HUNTER Swallowing: assessed at . Patient with oral dysphagia/puree diet/thin liquids. PT Functional Mobility: 08/13/22: Bed Mobility: CG assist for sit to/from supine, increased time needed to sit up and cues to not hold breath. Supervision with verbal cues for technique for rolling. Transfers: CG assist for sit to/from stand with w/w and maximal cues for hand placement. CG/min assist for sit to/from stand with SBQC, cues for upright posture. Ambulation: CG assist for 50' with w/w,cues for R hand to stay on walker, fast/impulsive kimberly, w/w too far in front and poor obstacle avoidance. Stairs: min assist for 4 steps with bilateral handrail, moderate cues for LE sequencing. Increased instability during descent with associated reports of weakness. No results found. MEDICATIONS: Current Facility-Administered Medications: acetaminophen (TYLENOL) tablet 650 mg, 650 mg, oral, Q6H PRN, Opal Mace MD apixaban (ELIQUIS) tablet 5 mg, 5 mg, oral, Q12H NAVEED, Opal Mace MD, 5 mg at 08/19/22 0951 aspirin chewable tablet 81 mg, 81 mg, oral, Daily, Opal Mace MD, 81 mg at 08/19/22 0950 calcium carbonate (TUMS) chewable tablet 1,000 mg, 400 mg of elemental calcium, oral, TID PRN, Opal Mace MD dapagliflozin (FARXIGA) tablet 10 mg, 10 mg, oral, Daily, Opal Mace MD, 10 mg at08/19/22 0950 fluticasone propionate (FLONASE) 50 mcg/actuation nasal spray 1 spray, 1 spray, each nostril, Daily, Opal Mace MD, 1 spray at 08/19/22 0957 furosemide (LASIX) tablet 40 mg, 40 mg, oral, Daily, Opal Mace MD, 40 mg at 08/19/22 0953 [Held by Provider] losartan (COZAAR) tablet 12.5 mg, 12.5 mg, oral, Daily, Opal Mace MD, 12.5 mg at 08/13/22 0821 metoprolol XL (TOPROL-XL) extended release tablet 12.5 mg, 12.5 mg, oral, Daily, Opal Mace MD, 12.5 mg at 08/19/22 0956 ondansetron ODT (ZOFRAN-ODT) disintegrating tablet 4 mg, 4 mg, oral, TID PRN, Opal Mace MD, 4 mg at 08/14/22 1000 ramelteon (ROZEREM) tablet 8 mg, 8 mg, oral, Nightly PRN, Opal Mace MD, 8 mg at 08/17/222023 rosuvastatin (CRESTOR) tablet 10 mg, 10 mg, oral, Nightly, Opal Mace MD, 10 mg at 08/18/222111 senna-docusate (PERICOLACE) 8.6-50 mg per tablet 1 tablet, 1 tablet, oral, BID PRN, Opal Mace MD simethicone (MYLICON) chewable tablet 80 mg, 80 mg, oral, TID PRN, Opal Haywood MD spironolactone (ALDACTONE) split tablet 12.5 mg, 12.5 mg, oral, Daily, Opal Haywood MD, 12.5 mg at 08/19/22 0953 traZODone (DESYREL) tablet 25 mg, 25 mg, oral, Nightly PRN, Opal Mace MD ASSESSMENT/PLAN: MEDICAL PLAN OF CARE: 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, TNK Dysphagia Right hemiparesis Dysarthria Impaired mobility, ADLs, transfers, gait, balance, strength, endurance, speech, cognition, swallow Continue PT, OT Continue SALES HUNTER Continue Aspirin 81mg, Eliquis 5mg bid, rosuvastatin 10mg qhs HLD: continue rosuvastatin 10mg qhs HTN Afib s/p AV node ablation Sick sinus syndrome s/p pacemaker AAA HFrEF ER 20% CAD s/p stent 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 Okay at rest. Watch closely 08/16: bp readings varying. Asymptomatic this morning 08/19: bp better controlled GERD: monitor for symptoms, tums prn Anemia : monitor hgb Anxiety: monitor Pain: Continue Tylenol 650mg q6h prn Bowels: Continue miralax daily, pericolace bid prn, simethicone prn. 08/14: dc miralax, family to bring in patient's home medicine Nausea: Continue Zofran prn, Tums prn Insomnia: Continue trazodone 25mg qhs prn Diet: puree/thin, NO GRAVY DVT ppx: eliquis Precautions: Fall, aspiration Weightbearing status: Full Code: LIMITED - No CPR Care discussed with Nursing Reviewed labs, wnl no changes REHAB PLAN OF CARE: Patient's expected intensity and duration of participation in the interdisciplinary rehabilitation program and disciplines that comprise this team: Therapies required to achieve goals:The patient will benefit from integrated coordination of care from the following interdisciplinary services: Medical Supervision, 24 hours Rehabilitation Nursing, Physical Therapy, Occupational Therapy, Case Management; Speech Therapy; Social Work Frequency and duration of therapies expect to be:Expected intensity and frequency of participation in the interdisciplinary rehab program is: 3 hours of therapy 5 days per week for the duration of length of stay Expected intensity and frequency of Physical Therapy (PT): 1.5 hours per day over 5-7 days for the duration of length of stay Expected intensity and frequency of Occupational Therapy (OT): 1.5 hours per day over 5-7 days per week for the duration of length of stay Expected intensity and frequency of Speech Therapy (SALES HUNTER): 1 hour per day per day over 5-7 days per week for the duration of length of stay FUNCTIONAL CHANGE: Amb 100' ww cga DISCHARGE PLANNING: Expected Discharge Date: TBD Equipment: TBD Family Training: SW to set up Education: Follow up Appointments: PCP 1-2weeks Neurology 1-2 weeks Cardiology 1-2 weeks Opal Mace MD Physical Medicine and Rehabilitation I can be reached from 7am-7pm through phone or perfect serve. Hospitalist front desk receptionist from 7pm-7am * Bell Moffett SLP - 08/18/2022 10:25 AM CDT Speech Language/Pathology SPEECH LANGUAGE PATHOLOGY PROGRESS NOTE Patient's Name: Abena Giron : 1940 Age: 82 y.o. Time In: 1015 Time Out: 1030 Patient Active Problem List Diagnosis Hypertension Osteoarthritis Hyperlipidemia Coronary artery disease involving [place] coronary artery of [place] heart Paroxysmal atrial fibrillation (CMS/HCC) (HCC) Chronic GERD Anxiety Abdominal aortic aneurysm (AAA) without rupture (HCC) B12 deficiency Sick sinus syndrome (CMS/HCC) (HCC) GENNY (obstructive sleep apnea) History of coronary artery stent placement Cardiac pacemaker in situ 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) Ischemic stroke (HCC) Acute CVA (cerebrovascular accident) (HCC) Past Medical History: Diagnosis Date Adiposity obesity [...] Hyperlipidemia Hypertension Hypertension Myocardial infarction (CMS/HCC) (HCC) 2015 Sleep apnea Vertigo Past Surgical History: Procedure Laterality Date ABDOMINAL SURGERY CARDIAC PACEMAKER PLACEMENT CATARACT EXTRACTION W/ INTRAOCULAR LENS IMPLANT Bilateral CHOLECYSTECTOMY 1981 Cholecystectomy EYE SURGERY OTHER SURGICAL HISTORY Right 1980 partial oopherectomy OTHER SURGICAL HISTORY heart cath with stent 2014 [place]/[facility] OTHER SURGICAL HISTORY 2016 a.fib: loop recorder implanted OTHER SURGICAL HISTORY 2016 Atrial Fibrillation: Cardiovascular Intervention (ablation) SKIN BIOPSY SUBJECTIVE MENTAL STATUS: alert,oriented. PAIN: Pre Therapy Pain Level:0 Pain Location: Pain Intervention: Post Therapy Pain Level/Response to Intervention:0 OBJECTIVE PRECAUTIONS: fall SWALLOWING: tolerating puree diet/thin liquids. Speech to re assess for upgrade next visit. COGNITION: intact COMMUNICATION: dysarthric TREATMENT ACTIVITIES: oral exercises, speech at sentence level EDUCATION: PATIENT/FAMILY EDUCATION: discussed diet choices and re eval with patient and daughter Response to Education: verbalized understanding. ASSESSMENT Activity Tolerance/Response to S.T.: good Barriers to learning: anxiety,communication Current status: moderate dysarthria and oral dysphagia. Progress toward goals: Patient continues to progress toward previously set goals which remain appropriate at this time. PLAN Multi-Disciplinary Problems (from Speech Therapy) Active Problems Problem: Swallowing Start Date: 08/12/22 Goal Start Date Expected End Date End Date LTG - Patient will tolerate the least restrictive diet consistency to allow for safe consumption ofdaily meals 08/12/22 08/19/22 -- Problem: Communication/Motor Speech Start Date: 08/12/22 Goal Start Date Expected End Date End Date STG - Patient will participate in oral-motor exercises to improve strength 08/12/22 08/19/22 -- Goal Start Date Expected End Date End Date STG - Patient will identify and utilize word retrieval Intervention in structured tasks 08/12/22 08/19/22 -- Goal Start Date Expected End Date End Date STG - Patient will use speech intelligibility Intervention at conversational level 08/12/22 08/19/22 -- Frequency of Treatment: bid 5x weekly Recommendations: home with family to assist. If this is the last note, consider this the discharge summary. * Lenka Perez, LIBORIO - 08/18/2022 8:13 AM CDT Physical Therapy PT PROGRESS NOTE Abena Mendiola Mack 82 y.o. 1940 Past Medical History: Diagnosis Date Adiposity obesity [...] Hyperlipidemia Hypertension Hypertension Myocardial infarction (CMS/HCC) (HCC) 2015 Sleep apnea Vertigo Past Surgical History: Procedure Laterality Date ABDOMINAL SURGERY CARDIAC PACEMAKER PLACEMENT CATARACT EXTRACTION W/ INTRAOCULAR LENS IMPLANT Bilateral CHOLECYSTECTOMY 1981 Cholecystectomy EYE SURGERY OTHER SURGICAL HISTORY Right 1980 partial oopherectomy OTHER SURGICAL HISTORY heart cath with stent 2013 [place]/[facility] OTHER SURGICAL HISTORY 2016 a.fib: loop recorder implanted OTHER SURGICAL HISTORY 2016 Atrial Fibrillation: Cardiovascular Intervention (ablation) SKIN BIOPSY Patient Active Problem List Diagnosis Hypertension Osteoarthritis Hyperlipidemia Coronary artery disease involving [place] coronary artery of [place] heart Paroxysmal atrial fibrillation (CMS/HCC) (HCC) Chronic GERD Anxiety Abdominal aortic aneurysm (AAA) without rupture (HCC) B12 deficiency Sick sinus syndrome (CMS/HCC) (HCC) GENNY (obstructive sleep apnea) History of coronary artery stent placement Cardiac pacemaker in situ 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) Ischemic stroke (HCC) Acute CVA (cerebrovascular accident) (HCC) TIME IN: 9:20 TIME OUT: 10:15 SUBJECTIVE Patient stated she was exhausted . Patient reported having minimally better sleep last night. Per daughter patient having low blood pressure this morning. MENTAL STATUS/ORIENTATION: awake PAIN: Pre-therapy pain level: 0/10 Pain location: n/a Pain intervention: none needed at this time Post-therapy pain level/response to intervention: 0/10 OBJECTIVE PRECAUTIONS: fall risk, aspiration precautions APPEARANCE/POSTURE: patient sitting in wheelchair, alarm in place, agreeable to therapy. VITAL SIGNS: Resting BP: difficult to obtain accurate reading due to AFIB. BP on left UE with automatic machine 64/42, HR 62. BP left UE with manual cuff, therapist with extreme difficulty hearing reading, slightsounds noted at 96 and 62 but no sounds heard in between, before or after. BP taken in RIGHT UE 100/73. BP taken in right UE on automatic machine after ambulation 143/88, HR 82, O2 95% on RA. MOBILITY DOCUMENTATION: Bed Mobility: sit to supine with CG assist laying down to left side with increased time to lift legs into bed. Transfers: sit to and from stand with SBA/CG assist with cues for hand placement and safety. Ambulation: wheeled walker 100'x1 CG assist with decreased kimberly, downward gaze, decreased heel strike SHAYAN, narrow PAUL, occasional decreased foot clearance on right with fatigue. Stairs: n/a Wheelchair management & propulsion: using SHAYAN UE and LE's 100'x1 supervision assist with multiple rest breaks and increased time to complete. TREATMENT: Sit to and from stand practiced x8 reps SBA. First 2 reps patient attempting to hold onto walker, walker moved to the side and patient encouraged to stand without it. Patient expressing frustration and fear of trying to stand without it however after performing 2 reps without patient gaining confidence. Appearance/Posture at end of treatment session: patient supine in bed, alarm in place, call button in reach. EDUCATION: PATIENT/FAMILY EDUCATION: patient educated on transfers, gait and safety Response to Education: needs reinforcement ASSESSMENT Activity tolerance/response to PT: patient with fluctuating BP due to AFIB and this therapist had difficulty obtaining accurate reading. Patient c/o exhaustion but no dizziness throughout session. BRAYAN Ramirez notified. Barriers to learning: Physical and Language Barriers to discharge: Limited safety awareness, Decreased endurance, Upper extremity weakness, andLower extremity weakness Patient continues progressing toward previously set goals which remain appropriate at this time. PLAN Patient to be seen bid 5x/week to address previously established deficits and goals. * Yessy Thakur, OT - 08/18/2022 8:02 AM CDT Occupational Therapy NOTE TYPE: OT TREATMENT ([facility]R BEDSIDE SESSION) Patient's Name: Abena Giron Age / Sex: 82 y.o. / female Room: [place] [id number] : 1940 Date: 08/18/22 Time In: 800 Time Out: 900 Patient Active Problem List Diagnosis Hypertension Osteoarthritis Hyperlipidemia Coronary artery disease involving [place] coronary artery of [place] heart Paroxysmal atrial fibrillation (CMS/HCC) (HCC) Chronic GERD Anxiety Abdominal aortic aneurysm (AAA) without rupture (HCC) B12 deficiency Sick sinus syndrome (CMS/HCC) (HCC) GENNY (obstructive sleep apnea) History of coronary artery stent placement Cardiac pacemaker in situ 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) Ischemic stroke (HCC) Acute CVA (cerebrovascular accident) (HCC) Past Medical History: Diagnosis Date Adiposity obesity [...] Hyperlipidemia Hypertension Hypertension Myocardial infarction (CMS/HCC) (HCC) 2015 Sleep apnea Vertigo Past Surgical History: Procedure Laterality Date ABDOMINAL SURGERY CARDIAC PACEMAKER PLACEMENT CATARACT EXTRACTION W/ INTRAOCULAR LENS IMPLANT Bilateral CHOLECYSTECTOMY 1981 Cholecystectomy EYE SURGERY OTHER SURGICAL HISTORY Right 1980 partial oopherectomy OTHER SURGICAL HISTORY heart cath with stent 2013 [place]/[facility] OTHER SURGICAL HISTORY 2016 a.fib: loop recorder implanted OTHER SURGICAL HISTORY 2016 Atrial Fibrillation: Cardiovascular Intervention (ablation) SKIN BIOPSY Precautions (Including Weight-Bearing): Fall risk and Bed / chair alarm Therapy Pain: Pre-therapy pain level: 0 / 10 Pain location: No pain - Location N/A Pain intervention(s): No pain - Intervention N/A Post-therapy pain level: 0 / 10 Pain scale used: 0-10 SCALE OBJECTIVE: APPEARANCE: Presentation upon OT arrival: Patient Supine with head of bed elevated Presentation upon OT departure: PATIENT Supine with head of bed elevated Bed / chair alarm in place and activated upon OT departure: Yes Call light within arms reach of patient at end of session: Yes Completed patient handoff and notified PT of patient's location and functional on completion of session. VITAL SIGNS: Heart rate at rest: 72 BPM O2 sats at rest: 98 % Oxygen LPM: room air COGNITIVE / PERCEPTUAL: A & O x4 SELF CARE: Shower / Bathe Self Type of bathing: SPONGEBATHING Location of shower / bathe self: Sitting in manual wheelchair Tasks completed: ALL COMPONENTS Components that required assistance (if applicable): NONE Overall assist level: INCIDENTAL TOUCHING ASSISTANCE Adaptive equipment (if applicable): no assistive device Additional documentation: touching assistance for standing balance Oral Hygiene Location of oral hygiene: Sitting in manual wheelchair Overall assist level: SET-UP / CLEAN-UP ASSISTANCE Additional documentation: N/A Other Grooming Tasks Location of other grooming tasks: Sitting in manual wheelchair Tasks completed: WASHING HANDS, COMBING HAIR, and APPLYING DEODORANT Overall assist level: SET-UP / CLEAN-UP ASSISTANCE Additional documentation: N/A UE Dressing Location of UE dressing: Sitting in manual wheelchair Tasks completed: Pullover shirt Overall assist level: SET-UP / CLEAN-UP ASSISTANCE Additional documentation: N/A LE Dressing (Underwear / Pants) Location of LE dressing (Underwear / Pants): Sitting in manual wheelchair Tasks completed: Underwear and Elastic waist pants Overall assist level: INCIDENTAL TOUCHING ASSISTANCE Additional documentation: touching assistance for standing balance Putting On / Taking Off Footwear Location of putting on / taking off footwear: Sitting in manual wheelchair Tasks completed: Slip-on shoe(s) Overall assist level: SET-UP / CLEAN-UP ASSISTANCE Additional documentation: N/A MOBILITY Bed mobility: supine to sit SBA Transfers: sit to stand min A using WW, bed to WC min A using WW HEARING / SPEECH / VISION: Expression of ideas and wants Overall assist level: SOME DIFFICULTY Understanding verbal and non-verbal content Overall assist level: UNDERSTANDS Additional activities: UE strengthening exercises (Overall assist level): min A Location: OT gym Activity description: 2lb weight, completed 4 exercises with handout, verbal cues, and model with 10x repetitions each exercise Caregiver present (yes / no): Yes: daughter Education & training provided: Role of OT, OT plan of care, ADL training, and Functional transfer training ASSESSMENT: Activity tolerance / response to OT: GOOD PARTICIPATION, GOOD MOTIVATION, and RECEPTIVE TO EDUCATION / TRAINING Progress towards goals: Please refer to Care Plan from this date for progress towards individual goals. PLAN: Therapy Plan: Please refer to most recent Inpatient Rehabilitation Team Conference note for discharge plan, including location, recommended level of supervision, and arrangements. Frequency of therapy: BID SESSIONS 5 DAYS / WEEK TO ADDRESS PREVIOUSLY ESTABLISHED DEFICITS AND GOALS Yessy Thakur, OT 08/18/22 * Lenka Perez, COMPOUND SPECIALIST - 08/17/2022 12:39 PM CDT Physical Therapy PT PROGRESS NOTE Abena Mendiola Mack 82 y.o. 1940 Past Medical History: Diagnosis Date Adiposity obesity [...] Hyperlipidemia Hypertension Hypertension Myocardial infarction (CMS/HCC) (HCC) 2015 Sleep apnea Vertigo Past Surgical History: Procedure Laterality Date ABDOMINAL SURGERY CARDIAC PACEMAKER PLACEMENT CATARACT EXTRACTION W/ INTRAOCULAR LENS IMPLANT Bilateral CHOLECYSTECTOMY 1981 Cholecystectomy EYE SURGERY OTHER SURGICAL HISTORY Right 1980 partial oopherectomy OTHER SURGICAL HISTORY heart cath with stent 2014 [place]/[facility] OTHER SURGICAL HISTORY 2016 a.fib: loop recorder implanted OTHER SURGICAL HISTORY 2016 Atrial Fibrillation: Cardiovascular Intervention (ablation) SKIN BIOPSY Patient Active Problem List Diagnosis Hypertension Osteoarthritis Hyperlipidemia Coronary artery disease involving [place] coronary artery of [place] heart Paroxysmal atrial fibrillation (CMS/HCC) (HCC) Chronic GERD Anxiety Abdominal aortic aneurysm (AAA) without rupture (HCC) B12 deficiency Sick sinus syndrome (CMS/HCC) (HCC) GENNY (obstructive sleep apnea) History of coronary artery stent placement Cardiac pacemaker in situ 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) Ischemic stroke (HCC) Acute CVA (cerebrovascular accident) (HCC) TIME IN: 11:15 TIME OUT: 12:00 PM TIME IN: 15:15 PM TIME OUT: 16:05 SUBJECTIVE Patient stated she was exhausted Patient reports not sleeping well last night. P.M. PATIENT STATED SHE WAS TIRED MENTAL STATUS/ORIENTATION: awake, aphasic PAIN: Pre-therapy pain level: 0/10 Pain location: n/a Pain intervention: none needed at this time Post-therapy pain level/response to intervention: 0/10 OBJECTIVE PRECAUTIONS: fall risk, aspiration precautions APPEARANCE/POSTURE: patient sitting in wheelchair, alarm in place, agreeable to therapy MOBILITY DOCUMENTATION: Bed Mobility: n/a Transfers: sit to and from stand with CG Assist with cues for hand placement and safety. Ambulation: wheeled walker 100'x1, 90'x1 including over carpet with CG assist. Patient with 1 slight LOB on second ambulation needing CG/Min assist to recover. Decreased kimberly, downward gaze, narrow PAUL, decreased heel strike on right, decreased right foot clearance and needs verbal cues to pickle cutter right foot. Stairs: n/a Wheelchair management & propulsion: n/a TREATMENT: Dynamic balance standing without UE supported performing zoom ball for a total of 5 minutes. Patient performs in both vertical and horizontal planes. Patient with Fair+ balance CG/Min assist with 1 posterior LOB needing min assist to recover. Sitting LE ex's x15 reps with green theraband, supervision assist: Right ankle pumps SHAYAN hip flexion (marching) LAQ's Hip IR/ER P.M. TREATMENT SESSION: PATIENT TRANSFERS SIT TO AND FROM STAND WITH CG ASSIST. TRANSFERS WHEELCHAIR TO BED WITH CG/MIN ASSIST WITH DIRECTOR OF BANDS. SIT TO SUPINE WITH CG/MIN ASSIST FOR LE'S. AMBULATES WITH WHEELED WALKER 40'X2 CG ASSIST WITH DEVIATIONS IN A.M. RECUMBENT BIKE PERFORMED FOR 5 MINUTES LEVEL 1. DYNAMIC BALANCE STANDING ON BLUE FOAM BALANCE BEAM FOR 3 MINUTES WITH FAIR+ BALANCE AND CG ASSIST, WHILE PLAYING [place] [place] FOUR USING RIGHT UE. GAME CONTINUED FOR AN ADDITIONAL 4 MINUTES ON TILE SURFACE (SURFACE SWITCHED DUE TO RIGHT ANKLE ROLLING ON FOAM) FAIR+ BALANCE AND CG ASSIST, USING RIGHT UE.PATIENT DEMONSTRATES SHAYAN KNEE BUCKLING WITH FATIGUE. Appearance/Posture at end of treatment session: patient sitting in wheelchair, alarm in place, callbutton in reach. Lunch tray positioned for patient. P.M. PATIENT POSITIONED SUPINE IN BED, ALARM IN PLACE, CALL BUTTON IN REACH. EDUCATION: PATIENT/FAMILY EDUCATION: patient educated on gait, transfers, exercises, and balance. Response to Education: needs reinforcement and verbalizes understanding ASSESSMENT Activity tolerance/response to PT: patient needs frequent rest breaks and c/o increased fatigue at end of session. Discussed with family and patient would check with nursing regarding options for room switching to assist with sleeping. P.M. PATIENT COMPLETES ALL ACTIVITIES WITH REST BREAKS. PATIENT C/O KNEE PAIN WHILE ON BIKE. Barriers to learning: Physical and Language Barriers to discharge: Confusion, Impulsivity, Limited safety awareness, Communication deficit, Decreased endurance, Upper extremity weakness, and Lower extremity weakness Patient continues progressing toward previously set goals which remain appropriate at this time. PLAN Patient to be seen bid 5x/week to address previously established deficits and goals. * Elinor Grissom COTA - 08/17/2022 12:29 PM CDT Occupational Therapy NOTE TYPE: OT TREATMENT (CMR DEPARTMENT SESSION) PATIENT'S NAME: Abena Giron AGE / SEX: 82 y.o. / female ROOM: [facility] [id number] : 1940 DATE: 08/17/22 TIME IN: 1400 TIME OUT: 1439 Patient Active Problem List Diagnosis Hypertension Osteoarthritis Hyperlipidemia Coronary artery disease involving [place] coronary artery of [place] heart Paroxysmal atrial fibrillation (CMS/HCC) (HCC) Chronic GERD Anxiety Abdominal aortic aneurysm (AAA) without rupture (HCC) B12 deficiency Sick sinus syndrome (CMS/HCC) (HCC) GENNY (obstructive sleep apnea) History of coronary artery stent placement Cardiac pacemaker in situ 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) Ischemic stroke (HCC) Acute CVA (cerebrovascular accident) (HCC) Past Medical History: Diagnosis Date Adiposity obesity [...] Hyperlipidemia Hypertension Hypertension Myocardial infarction (CMS/HCC) (HCC) 2015 Sleep apnea Vertigo Past Surgical History: Procedure Laterality Date ABDOMINAL SURGERY CARDIAC PACEMAKER PLACEMENT CATARACT EXTRACTION W/ INTRAOCULAR LENS IMPLANT Bilateral CHOLECYSTECTOMY 1981 Cholecystectomy EYE SURGERY OTHER SURGICAL HISTORY Right 1980 partial oopherectomy OTHER SURGICAL HISTORY heart cath with stent 2013 [place]/[facility] OTHER SURGICAL HISTORY 2016 a.fib: loop recorder implanted OTHER SURGICAL HISTORY 2016 Atrial Fibrillation: Cardiovascular Intervention (ablation) SKIN BIOPSY PRECAUTIONS (INCLUDING WEIGHT-BEARING): Fall risk and Bed / chair alarm SUBJECTIVE: I changed rooms so I can sleep THERAPY PAIN: PRE-THERAPY PAIN LEVEL: 5 / 10 PAIN LOCATION: RUE PAIN INTERVENTION(S): RN Notified POST-THERAPY PAIN LEVEL: 5 / 10 PAIN SCALE USED: 0-10 SCALE OBJECTIVE: APPEARANCE: PRESENTATION UPON OT ARRIVAL: PATIENT Supine with head of bed elevated PRESENTATION UPON OT DEPARTURE: PATIENT Sitting in manual wheelchair in recreational day room BED / CHAIR ALARM IN PLACE AND ACTIVATED UPON OT DEPARTURE: Yes CALL LIGHT WITHIN ARMS REACH OF PATIENT AT END OF SESSION: No - due to patient in recreational day room COMPLETED PATIENT HANDOFF AND NOTIFIED Physical Therapist / Physical Therapist Ultrasound Tester, NAME: Bria, OF PATIENT'S LOCATION AND FUNCTIONAL STATUS UPON COMPLETION OF SESSION COGNITIVE / PERCEPTUAL: Alert during session MOBILITY: TOILET TRANSFER LOCATION: STANDARD TOILET OVERALL ASSIST LEVEL: INCIDENTAL TOUCHING ASSISTANCE DEVICE: GRAB BARS ADDITIONAL DOCUMENTATION: N/A TRANSFERS: Supine>EOB SPV Stand pivot EOB>W/C CGA LIVING SKILLS: IADL ACTIVITY: FMC (OVERALL ASSIST LEVEL): Mod verbal cues LOCATION: Sitting in W/C ACTIVITY DESCRIPTION: Patient participated in FMC activity of opening clothespins and placing on designated rods with RUE. Pt demonstrated 50% accuracy on first attempt at 10 clothespins, required mod verbal cues for positioning and recommendations for placing pins. Extended time to complete activity due to poor FMC. CAREGIVER PRESENT (YES / NO): Yes: Daughter EDUCATION & TRAINING PROVIDED: Role of OT, OT plan of care, ADL training, Bed mobility training, Functional transfer training, Balance training, UE home exercise program, and Pursed lip breathing/ Relaxation techniques ASSESSMENT: ACTIVITY TOLERANCE / RESPONSE TO OT: GOOD PARTICIPATION, GOOD MOTIVATION, and RECEPTIVE TO EDUCATION / TRAINING PROGRESS TOWARDS GOALS: PLEASE REFER TO CARE PLAN FROM THIS DATE FOR PROGRESS TOWARDS INDIVIDUAL GOALS PLAN: PLEASE REFER TO MOST RECENT INPATIENT REHABILITATION TEAM CONFERENCE NOTE FOR DISCHARGE PLAN, INCLUDING LOCATION, RECOMMENDED LEVEL OF SUPERVISION AND ARRANGEMENTS. FREQUENCY OF THERAPY: BID SESSIONS 5 DAYS / WEEK TO ADDRESS PREVIOUSLY ESTABLISHED DEFICITS AND GOALS TARA Irby 08/17/22 * Elinor Grissom COTA - 08/17/2022 6:40 AM CDT Occupational Therapy NOTE TYPE: OT TREATMENT (CMR BEDSIDE SESSION) Patient's Name: Abena Giron Age / Sex: 82 y.o. / female Room: [place] [id number] : 1940 Date: 08/17/22 Time In: 1000 Time Out: 1100 Patient Active Problem List Diagnosis Hypertension Osteoarthritis Hyperlipidemia Coronary artery disease involving [place] coronary artery of [place] heart Paroxysmal atrial fibrillation (CMS/HCC) (HCC) Chronic GERD Anxiety Abdominal aortic aneurysm (AAA) without rupture (HCC) B12 deficiency Sick sinus syndrome (CMS/HCC) (HCC) GENNY (obstructive sleep apnea) History of coronary artery stent placement Cardiac pacemaker in situ 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) Ischemic stroke (HCC) Acute CVA (cerebrovascular accident) (HCC) Past Medical History: Diagnosis Date Adiposity obesity [...] Hyperlipidemia Hypertension Hypertension Myocardial infarction (CMS/HCC) (HCC) 2015 Sleep apnea Vertigo Past Surgical History: Procedure Laterality Date ABDOMINAL SURGERY CARDIAC PACEMAKER PLACEMENT CATARACT EXTRACTION W/ INTRAOCULAR LENS IMPLANT Bilateral CHOLECYSTECTOMY 1981 Cholecystectomy EYE SURGERY OTHER SURGICAL HISTORY Right 1980 partial oopherectomy OTHER SURGICAL HISTORY heart cath with stent 2013 [place]/[facility] OTHER SURGICAL HISTORY 2016 a.fib: loop recorder implanted OTHER SURGICAL HISTORY 2016 Atrial Fibrillation: Cardiovascular Intervention (ablation) SKIN BIOPSY Precautions (Including Weight-Bearing): Fall risk and Bed / chair alarm SUBJECTIVE: I didn't sleep again Therapy Pain: Pre-therapy pain level: 0 / 10 Pain location: No pain - Location N/A Pain intervention(s): No pain - Intervention N/A Post-therapy pain level: 0 / 10 Pain scale used: 0-10 SCALE OBJECTIVE: APPEARANCE: Presentation upon OT arrival: Patient Sitting in bedside recliner Presentation upon OT departure: PATIENT Sitting in manual wheelchair with staff assistance Bed / chair alarm in place and activated upon OT departure: Yes Call light within arms reach of patient at end of session: No - due to patient taken to physical therapy gym Completed patient handoff and notified Physical Therapist / Physical Therapist Ultrasound Tester, name: Bria, of patient's location and functional status upon completion of session. COGNITIVE / PERCEPTUAL: Alert during session SELF CARE: Shower / Bathe Self Type of bathing: WET WALK-IN SHOWER Location of shower / bathe self: Sitting on fold-down shower bench and Standing at grab bars Tasks completed: ALL COMPONENTS Components that required assistance (if applicable): NONE Overall assist level: INCIDENTAL TOUCHING ASSISTANCE Adaptive equipment (if applicable): handheld shower nozzle and shower chair Additional documentation: Patient utilized grab bars when standing to bathe buttocks, CGA for dynamic standing balance no LOB noted, pt demonstrated increased use of RUE when holding wash cloth and hand held shower nozzle. Other Grooming Tasks Location of other grooming tasks: Sitting in manual wheelchair Tasks completed: WASHING HANDS, COMBING HAIR, and APPLYING DEODORANT Overall assist level: SUPERVISION ASSISTANCE / VERBAL CUES Additional documentation: N/A UE Dressing Location of UE dressing: Sitting in manual wheelchair Tasks completed: Pullover shirt Overall assist level: SUPERVISION ASSISTANCE / VERBAL CUES Additional documentation: Initially forgetting to thread RUE, required mod verbal cues for sequencing LE Dressing (Underwear / Pants) Location of LE dressing (Underwear / Pants): Sitting in manual wheelchair and Standing at grab bars Tasks completed: Underwear and Elastic waist pants Overall assist level: PARTIAL / MODERATE ASSISTANCE: LESS THAN HALF (1% - 49%) Additional documentation: CGA for dynamic sitting and standing balance to pull pants over hips, minassist to place pants in R hand to gizzard puller hips Putting On / Taking Off Footwear Location of putting on / taking off footwear: Sitting in manual wheelchair Tasks completed: Slip-on shoe(s) Overall assist level: SUPERVISION ASSISTANCE / VERBAL CUES Additional documentation: N/A Toileting Location: SITTING ON STANDARD TOILET and STANDING AT STANDARD TOILET Tasks completed: HYGIENE MANAGEMENT, CLOTHING MANAGEMENT PRE-TOILETING, and CLOTHING MANAGEMENT POST-TOILETING Overall assist level: PARTIAL / MODERATE ASSISTANCE: LESS THAN HALF (1% - 49%) Additional documentation: min assist for clothing management with R hip MOBILITY: Toilet transfer Location: STANDARD TOILET Overall assist level: INCIDENTAL TOUCHING ASSISTANCE Device: GRAB BARS Additional documentation: N/A Tub / shower transfer Location: WALK-IN SHOWER Overall assist level: INCIDENTAL TOUCHING ASSISTANCE Device: GRAB BARS Additional documentation: N/A Bed mobility: OOB throughout session Transfers: Stand pivot recliner>W/C CGA HEARING / SPEECH / VISION: Expression of ideas and wants Overall assist level: WITHOUT DIFFICULTY Understanding verbal and non-verbal content Overall assist level: UNDERSTANDS UE THERAPEUTIC EXERCISES: EXERCISE TYPE: SHAYAN UE STRENGTHENING USING 2 # DOWEL [employer](S): Shoulders, scapula NUMBER OF REPETITIONS: 10 reps ASSIST LEVEL: MOD VERBAL CUES LOCATION OF COMPLETION: Sitting in W/C TOLERANCE: good tolerance, utilized mirror in front of patient for visual feedback for coordination Caregiver present (yes / no): No Education & training provided: Role of OT, OT plan of care, ADL training, Functional transfer training, Balance training, UE home exercise program, and Pursed lip breathing / Relaxation techniques ASSESSMENT: Activity tolerance / response to OT: GOOD PARTICIPATION, GOOD MOTIVATION, and RECEPTIVE TO EDUCATION / TRAINING Progress towards goals: Please refer to Care Plan from this date for progress towards individual goals. PLAN: Therapy Plan: Please refer to most recent Inpatient Rehabilitation Team Conference note for discharge plan, including location, recommended level of supervision, and arrangements. Frequency of therapy: BID SESSIONS 5 DAYS / WEEK TO ADDRESS PREVIOUSLY ESTABLISHED DEFICITS AND GOALS TARA Irby 08/17/22 * Kraig Sandoval, LIBORIO - 08/16/2022 2:31 PM CDT Physical Therapy PT PROGRESS NOTE Abena Giron 82 y.o. 1940 Past Medical History: Diagnosis Date Adiposity obesity [...] a.fib: loop recorder implanted OTHER SURGICAL HISTORY 2016 Atrial Fibrillation: Cardiovascular Intervention (ablation) SKIN BIOPSY Patient Active Problem List Diagnosis Hypertension Osteoarthritis Hyperlipidemia Coronary artery disease involving [place] coronary artery of [place] heart Paroxysmal atrial fibrillation (CMS/HCC) (HCC) Chronic GERD Anxiety Abdominal aortic aneurysm (AAA) without rupture (HCC) B12 deficiency Sick sinus syndrome (CMS/HCC) (HCC) GENNY (obstructive sleep apnea) History of coronary artery stent placement Cardiac pacemaker in situ 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) Ischemic stroke (HCC) Acute CVA (cerebrovascular accident) (HCC) TIME IN: 1430 TIME OUT: 1510 SUBJECTIVE Patient states that she is feeling okay this afternoon MENTAL STATUS/ORIENTATION: Alert and oriented x4 PAIN: Pre-therapy pain level: 0/10 Pain location: n/a Pain intervention: not needed Post-therapy pain level/response to intervention: 0/10 OBJECTIVE PRECAUTIONS: Fall risk and aspiration APPEARANCE/POSTURE: Sitting in w/c within dayroom, in no distress, family present, and patient pleasantly agreeable to therapy MOBILITY DOCUMENTATION: Bed Mobility: Sit to supine- SPV Transfers: CG assist of 1 for sit to and from stands- Verbal cues required throughout for safe handplacement. W/c to and from nu-sep stand pivot-CG assist of 1 Ambulation: 60ft cone weaving using w/w-CG assist of 1. Verbal cues to say closer to walker for safety-especially during turns. Intermittent decreased R foot clearance 40ft x 2 using w/w picking up 7 cones throughout gym- CG/min assist of 1 Stairs: n/a Wheelchair management & propulsion: 150ft x 1 using bilateral LE's- SBA of 1 (performed for LE strengthening purposes) TREATMENT: Nu-step: 5 minutes, load 5, 293 steps, and SPV Appearance/Posture at end of treatment session: Laying supine w/ HOB elevated, on room air, and handoff given to RN on duty EDUCATION: PATIENT/FAMILY EDUCATION: gait, safety, endurance, and mobility Response to Education: needs reinforcement ASSESSMENT Activity tolerance/response to PT: Patient tolerated session well with no adverse effects. Cueing for safety with device. Intermittent decreased R foot clearance Barriers to learning: Unchanged from a.m Barriers to discharge: Unchanged from a.m Patient continues progressing toward previously set goals which remain appropriate at this time. PLAN Patient to be seen bid 5x/week to address previously established deficits and goals. * Bell Moffett, SALES HUNTER - 08/16/2022 1:25 PM CDT Speech Language/Pathology SPEECH LANGUAGE PATHOLOGY PROGRESS NOTE Patient's Name: Abena Giron : 1940 Age: 82 y.o. 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) Ischemic stroke (HCC) Acute CVA (cerebrovascular accident) (HCC) Past Medical History: Diagnosis Date Adiposity obesity [...] EXTRACTION W/ INTRAOCULAR LENS IMPLANT Bilateral CHOLECYSTECTOMY 1980 Cholecystectomy EYE SURGERY OTHER SURGICAL HISTORY Right 1980 partial oopherectomy OTHER SURGICAL HISTORY heart cath with stent 2013 [place]/[facility] OTHER SURGICAL HISTORY 2016 a.fib: loop recorder implanted OTHER SURGICAL HISTORY 2016 Atrial Fibrillation: Cardiovascular Intervention (ablation) SKIN BIOPSY SUBJECTIVE MENTAL STATUS: alert PAIN: Pre Therapy Pain Level:0 Pain Location: Pain Intervention: Post Therapy Pain Level/Response to Intervention:0 OBJECTIVE PRECAUTIONS: fall SWALLOWING: tolerating pureed diet/thin liquids. Speech to introduce solids during tx sessions. COGNITION: intact COMMUNICATION: dysarthric TREATMENT ACTIVITIES: oral exercises, speech /dysarthria drill. EDUCATION: PATIENT/FAMILY EDUCATION: discussed weekend schedule Response to Education: verbalized understanding ASSESSMENT Activity Tolerance/Response to S.T.: good Barriers to learning: communication,anxiety Current status: moderate dysarthria and oral dysphagia Progress toward goals: Patient continues to progress toward previously set goals which remain appropriate at this time. PLAN Multi-Disciplinary Problems (from Speech Therapy) Active Problems Problem: Swallowing Start Date: 08/12/22 Goal Start Date Expected End Date End Date LTG - Patient will tolerate the least restrictive diet consistency to allow for safe consumption ofdaily meals 08/12/22 08/19/22 -- Problem: Communication/Motor Speech Start Date: 08/12/22 Goal Start Date Expected End Date End Date STG - Patient will participate in oral-motor exercises to improve strength 08/12/22 08/19/22 -- Goal Start Date Expected End Date End Date STG - Patient will identify and utilize word retrieval Intervention in structured tasks 08/12/22 08/19/22 -- Goal Start Date Expected End Date End Date STG - Patient will use speech intelligibility Intervention at conversational level 08/12/22 08/19/22 -- Frequency of Treatment: bid 5xweekly Recommendations: home with family . If this is the last note, consider this the discharge summary. * Lenka Perez PTA - 08/16/2022 12:29 PM CDT Physical Therapy PT PROGRESS NOTE Abena Driscolldwin 82 y.o. 1940 Past Medical History: Diagnosis Date Adiposity obesity [...] Hyperlipidemia Hypertension Hypertension Myocardial infarction (CMS/HCC) (HCC) 2015 Sleep apnea Vertigo Past Surgical History: Procedure Laterality Date ABDOMINAL SURGERY CARDIAC PACEMAKER PLACEMENT CATARACT EXTRACTION W/ INTRAOCULAR LENS IMPLANT Bilateral CHOLECYSTECTOMY 1980 Cholecystectomy EYE SURGERY OTHER SURGICAL HISTORY Right 1980 partial oopherectomy OTHER SURGICAL HISTORY heart cath with stent 2013 [place]/[facility] OTHER SURGICAL HISTORY 2016 a.fib: loop recorder implanted OTHER SURGICAL HISTORY 2016 Atrial Fibrillation: Cardiovascular Intervention (ablation) SKIN BIOPSY Patient Active Problem List Diagnosis Hypertension Osteoarthritis Hyperlipidemia Coronary artery disease involving [place] coronary artery of [place] heart Paroxysmal atrial fibrillation (CMS/HCC) (HCC) Chronic GERD Anxiety Abdominal aortic aneurysm (AAA) without rupture (HCC) B12 deficiency Sick sinus syndrome (CMS/HCC) (HCC) GENNY (obstructive sleep apnea) History of coronary artery stent placement Cardiac pacemaker in situ 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 (RN/speech therapist aware of poor food and lack of sleep) MENTAL STATUS/ORIENTATION: awake, aphasic PAIN: Pre-therapy pain level: 0/10 Pain location: n/a Pain intervention: none needed at this time Post-therapy pain level/response to intervention: 0/10 OBJECTIVE PRECAUTIONS: fall risk, aspiration precautions APPEARANCE/POSTURE: patient sitting in wheelchair, alarm in place, agreeable to therapy. MOBILITY DOCUMENTATION: Bed Mobility: supine to sit with mod assist for trunk support, sit to supine with min assist for LE's and control. Transfers: sit to and from stand with CG assist with cues for hand placement and safety. Transfers mat to wheelchair with wheeled walker and CG assist. Ambulation: wheeled walker 110'x1 CG/Min assist, uneven kimberly, downward gaze, decreased heel strike SHAYAN R>L, decreased right foot clearance with fatigue Stairs: n/a Wheelchair management & propulsion: n/a TREATMENT: Supine LE ex's x15 reps with 2# SHAYAN. Patient performed ankle pumps, glut sets, heel slides, hip abduction, SAQ's and SLR's supervision assist. Bridging with ball squeeze x10 reps and min assist to hold feet in place. Bent knee fallouts with green thera-band x10 reps min assist to hold feet in place. Side lying glut med (clam shells) x15 reps with green thera-band supervision assist. Appearance/Posture at end of treatment session: patient sitting in wheelchair, alarm in place, callbutton in reach. EDUCATION: PATIENT/FAMILY EDUCATION: patient educated on gait, transfers, and exercises. Response to Education: needs reinforcement ASSESSMENT Activity tolerance/response to PT: patient demonstrates increased fatigue with all activities. Patient needing frequent rest breaks to complete exercises. Barriers to learning: Physical Barriers to discharge: Impulsivity, Limited safety awareness, Decreased endurance, Upper extremity weakness, and Lower extremity weakness Patient continues progressing toward previously set goals which remain appropriate at this time. PLAN Patient to be seen bid 5x/week to address previously established deficits and goals. * Janette Lombardi - 08/16/2022 11:55 AM CDT Nutrition Assessment Reason for Assessment: Follow Up Encounter Date: 08/16/22 11:55 AM Nutrition Assessment and Plan: Patient is a 82 y.o. female. Admit Dx: Acute CVA (cerebrovascular accident) (HCC) [I63.9]. Admittedon 08/12/2022, current LOS is 4 days. Very briefly spoke with pt prior to working with therapy. Daughter noted to often be at bedside, however did not speak with her. Continues with a puree thin liquid diet per SALES HUNTER. 25-100% of meals documented over the past few days with most emals documented at 25%. Dislike of puree diet. Labs reviewed. GI WDL. Last BM documented 08/14. Pt states that she will consider ONS. Encourage adequate nutrition and monitor need to add ONS. RD following and available if needed. Current diet order: Adult Diet Modified Consistency; Pureed Pt intake is inadequate. PO intakes: 25-100% x3 days with most meals documented at 25% Nutrition Diagnosis 1: Swallowing difficulty Related to: Other (comment) (CVA) Evidenced by: Other (comment) (modified diet consistency per SALES HUNTER recommendation) Interventions: Assess for nutrition changes, Initial assessment, Medical food supplement Monitoring and Evaluation: Appetite, Discharge plans, Food preferences, Labs, Plan of care, PO intake, Swallow function, Supplement tolerance, Weight changes Goals: Oral intake to meet 75% estimated nutritional needs by next assessment, Adequate nutrition to meet estimated needs by next assessment, Tolerance of medical food supplement by next assessment Estimated needs: Total Kcal/kg Estimated Needs : 1780 based on Kcal/k. Type of Weight Used for Estimated Kcals:Current Total Protein Estimated Needs (gm): 71.2 Protein Needs Based on g/k.0 Type of Weight Used for Estimated Protein : Current. Estimated Fluid Needs Type of Weight Used for Estimated Fluid Needs: Current Fluid Needs Based on : 1 ml/kcal Total Fluid Estimated Needs: 1780 Objective Anthropometrics Weight: 71.2 kg (156 lb 15.5 oz) Admission Weight : 71.2 kg Weight Change: -0.01 kg (-0.03 lbs) IBW/kg (Calculated) : 47.6 kg Height: 154.9 cm (5' 0.98 ) Weight in (lb) to have BMI = 25: 132 BMI (Calculated): 29.7 BMI Classification: BMI 25.0 - 29.9 Overweight 3 Day I/O Summary 08/14 1899 - 08/16 0659 In: 720 [P.O.:720] Out: - Temp: 36.4 ??C (97.5 ??F) Past Medical History: Diagnosis Date Adiposity obesity [...] infarction (CMS/HCC) (HCC) 2014 Sleep apnea Vertigo Medications and Lab Review: Scheduled Meds: apixaban, 5 mg, oral, Q12H NAVEED aspirin, 81 mg, oral, Daily dapagliflozin, 10 mg, oral, Daily furosemide, 40 mg, oral, Daily [Held by Provider] losartan, 12.5 mg, oral, Daily metoprolol XL, 12.5 mg, oral, Daily rosuvastatin, 10 mg, oral, Nightly spironolactone, 12.5 mg, oral, Daily Continuous Infusions: No results found for: SODIUM, POTASSIUM, BUNSER, CREATININE, PHOS, ALBUMIN, MAGNESIUM, CALCIUM, HDL, LDL, CHOLESTEROL, TRIGLYCERIDE Lab Results Component Value Date HGBA1C 6.0 (H) 08/03/2022 No results found for: GLUCOSE Nursing Assessment: Last BM Date: 08/14/22 Bowel Sounds (All Quadrants): Active Sai Scale Score: 19 Skin Integrity: Bruising Diet Instructions Modified consistency diet as recommended per SALES H[employer]TER Call [phone] to speak with a dietitian about any diet related concerns. Nutrition Follow-Up : 08/20/22 Janette Lombardi MS, RD, LD * Elinor Grissom COTA - 08/16/2022 11:49 AM CDT Occupational Therapy NOTE TYPE: OT TREATMENT (CMR DEPARTMENT SESSION) PATIENT'S NAME: Abena Giron AGE / SEX: 82 y.o. 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) Ischemic stroke (HCC) Acute CVA (cerebrovascular accident) (HCC) Past Medical History: Diagnosis Date Adiposity obesity [...] a.fib: loop recorder implanted OTHER SURGICAL HISTORY 2016 Atrial Fibrillation: Cardiovascular Intervention (ablation) SKIN BIOPSY PRECAUTIONS (INCLUDING WEIGHT-BEARING): Fall risk and Bed / chair alarm SUBJECTIVE: I just love kitties THERAPY PAIN: PRE-THERAPY PAIN LEVEL: 0 / 10 PAIN LOCATION: No pain - Location N/A PAIN INTERVENTION(S): No pain - Intervention N/A POST-THERAPY PAIN LEVEL: 0 / 10 PAIN SCALE USED: 0-10 SCALE OBJECTIVE: APPEARANCE: PRESENTATION UPON OT ARRIVAL: PATIENT Supine with head of bed elevated PRESENTATION UPON OT DEPARTURE: PATIENT Sitting in manual wheelchair in recreational day room BED / CHAIR ALARM IN PLACE AND ACTIVATED UPON OT DEPARTURE: Yes CALL LIGHT WITHIN ARMS REACH OF PATIENT AT END OF SESSION: No - due to patient in recreational day room COMPLETED PATIENT HANDOFF AND NOTIFIED Physical Therapist / Physical Therapist Ultrasound Tester, NAME: Jacky, OF PATIENT'S LOCATION AND FUNCTIONAL STATUS UPON COMPLETION OF SESSION COGNITIVE / PERCEPTUAL: Alert during session Pleasant and motivated during session UE THERAPEUTIC EXERCISES: EXERCISE TYPE: R UE FINE MOTOR COORDINATION NUMBER OF REPETITIONS: 5 reps ASSIST LEVEL: MOD VERBAL CUES LOCATION OF COMPLETION: Sitting in W/C TOLERANCE: fair tolerance, mod verbal cues for manipulating in hand MOBILITY: TOILET TRANSFER LOCATION: STANDARD TOILET OVERALL ASSIST LEVEL: INCIDENTAL TOUCHING ASSISTANCE DEVICE: GRAB BARS ADDITIONAL DOCUMENTATION: CGA for stand pivot using grab bar TRANSFERS: Supine>EOB SPV Stand pivot EOB>W/C CGA LIVING SKILLS: IADL ACTIVITY: Proprioception (OVERALL ASSIST LEVEL): Mod verbal cues LOCATION: Sitting in W/C ACTIVITY DESCRIPTION: Patient participated in RUE proprioception activity, instructed to cross midline on L side to retrieve theraputty stuck on wall. Pt melissa to retrieve 75% of theraputty on first attempt. Max verbal cues for hand positioning and grasping and release with digits. Pt demonstrated fair proprioception overall. TOILETING LOCATION: SITTING ON STANDARD TOILET and STANDING AT STANDARD TOILET TASKS COMPLETED: HYGIENE MANAGEMENT, CLOTHING MANAGEMENT PRE-TOILETING, and CLOTHING MANAGEMENT POST-TOILETING OVERALL ASSIST LEVEL: PARTIAL / MODERATE ASSISTANCE: LESS THAN HALF (1% - 49%) ADDITIONAL DOCUMENTATION: Mod assist with L hip component of pre/post clothing management , completed anterior hygiene in sitting CAREGIVER PRESENT (YES / NO): No EDUCATION & TRAINING PROVIDED: Role of OT, OT plan of care, ADL training, Bed mobility training, Functional transfer training, Balance training, UE home exercise program, and Pursed lip breathing/ Relaxation techniques ASSESSMENT: ACTIVITY TOLERANCE / RESPONSE TO OT: GOOD PARTICIPATION, GOOD MOTIVATION, and RECEPTIVE TO EDUCATION / TRAINING PROGRESS TOWARDS GOALS: PLEASE REFER TO CARE PLAN FROM THIS DATE FOR PROGRESS TOWARDS INDIVIDUAL GOALS PLAN: PLEASE REFER TO MOST RECENT INPATIENT REHABILITATION TEAM CONFERENCE NOTE FOR DISCHARGE PLAN, INCLUDING LOCATION, RECOMMENDED LEVEL OF SUPERVISION AND ARRANGEMENTS. FREQUENCY OF THERAPY: BID SESSIONS 5 DAYS / WEEK TO ADDRESS PREVIOUSLY ESTABLISHED DEFICITS AND GOALS TARA Irby 08/16/22 * Opal Mace MD - 08/16/2022 10:20 AM CDT INPATIENT REHABILITATION DAILY PROGRESS NOTE CHIEF COMPLAINT: CVA SUBJECTIVE: Did not sleep well due to roommate. Denies pain. Daughter present OBJECTIVE: VITALS: Vitals: 08/15/22 0712 08/15/22 1900 08/15/22 2059 08/16/22 0732 BP: 143/87 (!) 73/49 118/58 119/67 BP Location: Left arm Right arm Right arm Patient Position: Lying Sitting Pulse: 75 67 75 Resp: 18 16 18 Temp: 36.5 ??C (97.7 ??F) 36.5 ??C (97.7 ??F) 36.4 ??C (97.5 ??F) TempSrc: Temporal Oral SpO2: 96% 95% 99% Weight: Height: PHYSICAL EXAM: General: no acute distress, in bed HEENT: normocephalic, trachea midline Heart: rrr Lungs: ctab GI: soft, nontender Neuro: alert, oriented, dysarthric LABS/RADIOLOGY/DIAGNOSTIC REVIEW Recent Labs Lab Units 08/13/22 0937 WBC K/cumm 8.9 HEMOGLOBIN g/dL 12.2 HEMATOCRIT % 38.4 PLATELETS K/cumm 335 Recent Labs Lab Units 08/13/22 0937 SODIUM mmol/L 139 POTASSIUM PLASMA mmol/L 4.0 CHLORIDE mmol/L 102 CO2 mmol/L 26 ANIONGAP mmol/L 11 GLUCOSE mg/dL 105 BUN SERUM mg/dL 23 CREATININE mg/dL 0.76 CALCIUM mg/dL 9.2 ALBUMIN g/dL 3.5 ALK PHOS Units/L 35* ALT Units/L 13 AST Units/L 28 BILIRUBIN TOTAL mg/dL 0.5 Recent Labs Lab Units 08/13/22 0937 08/11/22 2154 08/11/22 0547 08/09/22 2039 GLUCOSE mg/dL 105 90 96 112 OT Functional Mobility: 08/13 transfers: MIN/CGA OT Self Care: 08/13 bathing/toileting CGA, UB/LB dressing/footwear MIN, oral hygiene/grooming Set-up SALES HUNTER Cognition: oriented x3 SALES HUNTER Communication: word finding deficits and dysarthria SALES HUNTER Swallowing: assessed at . Patient with oral dysphagia/puree diet/thin liquids. PT Functional Mobility: 08/13/22: Bed Mobility: CG assist for sit to/from supine, increased time needed to sit up and cues to not hold breath. Supervision with verbal cues for technique for rolling. Transfers: CG assist for sit to/from stand with w/w and maximal cues for hand placement. CG/min assist for sit to/from stand with SBQC, cues for upright posture. Ambulation: CG assist for 50' with w/w,cues for R hand to stay on walker, fast/impulsive kimberly, w/w too far in front and poor obstacle avoidance. Stairs: min assist for 4 steps with bilateral handrail, moderate cues for LE sequencing. Increased instability during descent with associated reports of weakness. No results found. MEDICATIONS: Current Facility-Administered Medications: acetaminophen (TYLENOL) tablet 650 mg, 650 mg, oral, Q6H PRN, Opal Mace MD apixaban (ELIQUIS) tablet 5 mg, 5 mg, oral, Q12H NAVEED, Opal Mace MD, 5 mg at 08/16/22 0804 aspirin chewable tablet 81 mg, 81 mg, oral, Daily, Opal Mace MD, 81 mg at 08/16/22 0804 calcium carbonate (TUMS) chewable tablet 1,000 mg, 400 mg of elemental calcium, oral, TID PRN, Opal Mace MD dapagliflozin (FARXIGA) tablet 10 mg, 10 mg, oral, Daily, Opal Mace MD, 10 mg at08/16/22 0804 furosemide (LASIX) tablet 40 mg, 40 mg, oral, Daily, Opal Mace MD, 40 mg at 08/16/22 0804 [Held by Provider] losartan (COZAAR) tablet 12.5 mg, 12.5 mg, oral, Daily, Opal Mace MD, 12.5 mg at 08/13/22 08 metoprolol XL (TOPROL-XL) extended release tablet 12.5 mg, 12.5 mg, oral, Daily, Opal Mace MD, 12.5 mg at 08/16/22803 ondansetron ODT (ZOFRAN-ODT) disintegrating tablet 4 mg, 4 mg, oral, TID PRN, Opal Mace MD, 4 mg at 08/14/22999 ramelteon (ROZEREM) tablet 8 mg, 8 mg, oral, Nightly PRN, Opal Mace MD, 8 mg at 08/15/222043 rosuvastatin (CRESTOR) tablet 10 mg, 10 mg, oral, Nightly, Opal Mace MD, 10 mg at 08/15/222043 senna-docusate (PERICOLACE) 8.6-50 mg per tablet 1 tablet, 1 tablet, oral, BID PRN, Opal Mace MD simethicone (MYLICON) chewable tablet 80 mg, 80 mg, oral, TID PRN, pOal Haywood MD spironolactone (ALDACTONE) split tablet 12.5 mg, 12.5 mg, oral, Daily, Opal HaywoodMD, 12.5 mg at 08/16/22 0804 traZODone (DESYREL) tablet 25 mg, 25 mg, oral, Nightly PRN, Opal Mace MD ASSESSMENT/PLAN: MEDICAL PLAN OF CARE: 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, TNK Dysphagia Right hemiparesis Dysarthria Impaired mobility, ADLs, transfers, gait, balance, strength, endurance, speech, cognition, swallow Continue PT, OT Continue SALES HUNTER Continue Aspirin 81mg, Eliquis 5mg bid, rosuvastatin 10mg qhs HLD: continue rosuvastatin 10mg qhs HTN Afib s/p AV node ablation Sick sinus syndrome s/p pacemaker AAA HFrEF ER 20% CAD s/p stent 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 Okay at rest. Watch closely 08/16: bp readings varying. Asymptomatic this morning GERD: monitor for symptoms, tums prn Anemia : monitor hgb Anxiety: monitor Pain: Continue Tylenol 650mg q6h prn Bowels: Continue miralax daily, pericolace bid prn, simethicone prn. 08/14: tristan miralax, family to bring in patient's home medicine Nausea: Continue Zofran prn, Tums prn Insomnia: Continue trazodone 25mg qhs prn Diet: puree/thin, NO GRAVY DVT ppx: eliquis Precautions: Fall, aspiration Weightbearing status: Full Code: LIMITED - No CPR Care discussed with Nursing, SALES HUNTER REHAB PLAN OF CARE: Patient's expected intensity and duration of participation in the interdisciplinary rehabilitation program and disciplines that comprise this team: Therapies required to achieve goals:The patient will benefit from integrated coordination of care from the following interdisciplinary services: Medical Supervision, 24 hours Rehabilitation Nursing, Physical Therapy, Occupational Therapy, Case Management; Speech Therapy; Social Work Frequency and duration of therapies expect to be:Expected intensity and frequency of participation in the interdisciplinary rehab program is: 3 hours of therapy 5 days per week for the duration of length of stay Expected intensity and frequency of Physical Therapy (PT): 1.5 hours per day over 5-7 days for the duration of length of stay Expected intensity and frequency of Occupational Therapy (OT): 1.5 hours per day over 5-7 days per week for the duration of length of stay Expected intensity and frequency of Speech Therapy (SALES HUNTER): 1 hour per day per day over 5-7 days per week for the duration of length of stay FUNCTIONAL CHANGE: Amb 20' ww cga DISCHARGE PLANNING: Expected Discharge Date: TBD Equipment: TBD Family Training: SW to set up Education: Follow up Appointments: PCP 1-2weeks Neurology 1-2 weeks Cardiology 1-2 weeks Opal Mace MD Physical Medicine and Rehabilitation I can be reached from 7am-7pm through phone or perfect serve. Hospitalist front desk receptionist from 7pm-7am * Bell Moffett SLP - 08/16/2022 8:56 AM CDT Speech Language/Pathology SPEECH LANGUAGE PATHOLOGY PROGRESS NOTE Patient's Name: Abena Giron : 1940 Age: 82 y.o. Time In: 825 Time Out: 852 Patient Active Problem List Diagnosis Hypertension Osteoarthritis Hyperlipidemia Coronary artery disease involving [place] coronary artery of [place] heart Paroxysmal atrial fibrillation (CMS/HCC) (HCC) Chronic GERD Anxiety Abdominal aortic aneurysm (AAA) without rupture (HCC) B12 deficiency Sick sinus syndrome (CMS/HCC) (HCC) GENNY (obstructive sleep apnea) History of coronary artery stent placement Cardiac pacemaker in situ 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) Ischemic stroke (HCC) Acute CVA (cerebrovascular accident) (HCC) Past Medical History: Diagnosis Date Adiposity obesity [...] Hyperlipidemia Hypertension Hypertension Myocardial infarction (CMS/HCC) (HCC) 2015 Sleep apnea Vertigo Past Surgical History: Procedure Laterality Date ABDOMINAL SURGERY CARDIAC PACEMAKER PLACEMENT CATARACT EXTRACTION W/ INTRAOCULAR LENS IMPLANT Bilateral CHOLECYSTECTOMY 1981 Cholecystectomy EYE SURGERY OTHER SURGICAL HISTORY Right 1980 partial oopherectomy OTHER SURGICAL HISTORY heart cath with stent 2014 [place] OTHER SURGICAL HISTORY 2016 a.fib: loop recorder implanted OTHER SURGICAL HISTORY 2016 Atrial Fibrillation: Cardiovascular Intervention (ablation) SKIN BIOPSY SUBJECTIVE MENTAL STATUS: patient tearful, complaining of roommate being noisy all night. PAIN: Pre Therapy Pain Level:0 Pain Location: Pain Intervention: Post Therapy Pain Level/Response to Intervention:0 OBJECTIVE PRECAUTIONS: fall SWALLOWING: trials of mechanical soft today. Increased oral transit time and mild pocketing on right but no signs of aspiration. Recommend continue with puree with speech to keep trialing solids. COGNITION: wfl COMMUNICATION: dysarthric TREATMENT ACTIVITIES: trials of mechanical soft, oral exercises, speech at sentence level. EDUCATION: PATIENT/FAMILY EDUCATION: discussed food choices with daughter Response to Education: daughter will bring in puree consistency foods from home. ASSESSMENT Activity Tolerance/Response to S.T.: good Barriers to learning: emotional,communication Current status: moderate dysarthria and oral dysphagia. Progress toward goals: Patient continues to progress toward previously set goals which remain appropriate at this time. PLAN Multi-Disciplinary Problems (from Speech Therapy) Active Problems Problem: Swallowing Start Date: 08/12/22 Goal Start Date Expected End Date End Date LTG - Patient will tolerate the least restrictive diet consistency to allow for safe consumption ofdaily meals 08/12/22 08/19/22 -- Problem: Communication/Motor Speech Start Date: 08/12/22 Goal Start Date Expected End Date End Date STG - Patient will participate in oral-motor exercises to improve strength 08/12/22 08/19/22 -- Goal Start Date Expected End Date End Date STG - Patient will identify and utilize word retrieval Intervention in structured tasks 08/12/22 08/19/22 -- Goal Start Date Expected End Date End Date STG - Patient will use speech intelligibility Intervention at conversational level 08/12/22 08/19/22 -- Frequency of Treatment: bid 5xweekly Recommendations: home with family If this is the last note, consider this the discharge summary. * Yessy Cam COTA - 08/16/2022 6:50 AM CDT Occupational Therapy NOTE TYPE: OT TREATMENT (CMR BEDSIDE SESSION) Patient's Name: Abena Giron Age / Sex: 82 y.o. / female Room: [place] [address] : 1940 Date: 08/16/22 Time In: 1003 Time Out: 1048 Patient Active Problem List Diagnosis Hypertension Osteoarthritis Hyperlipidemia Coronary artery disease involving [place] coronary artery of [place] heart Paroxysmal atrial fibrillation (CMS/HCC) (HCC) Chronic GERD Anxiety Abdominal aortic aneurysm (AAA) without rupture (HCC) B12 deficiency Sick sinus syndrome (CMS/HCC) (HCC) GENNY (obstructive sleep apnea) History of coronary artery stent placement Cardiac pacemaker in situ 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) Ischemic stroke (HCC) Acute CVA (cerebrovascular accident) (HCC) Past Medical History: Diagnosis Date Adiposity obesity [...] Hyperlipidemia Hypertension Hypertension Myocardial infarction (CMS/HCC) (HCC) 2015 Sleep apnea Vertigo Past Surgical History: Procedure Laterality Date ABDOMINAL SURGERY CARDIAC PACEMAKER PLACEMENT CATARACT EXTRACTION W/ INTRAOCULAR LENS IMPLANT Bilateral CHOLECYSTECTOMY 1981 Cholecystectomy EYE SURGERY OTHER SURGICAL HISTORY Right 1980 partial oopherectomy OTHER SURGICAL HISTORY heart cath with stent 2014 [place]/[facility] OTHER SURGICAL HISTORY 2016 a.fib: loop recorder implanted OTHER SURGICAL HISTORY 2016 Atrial Fibrillation: Cardiovascular Intervention (ablation) SKIN BIOPSY Precautions (Including Weight-Bearing): Fall risk and Bed / chair alarm SUBJECTIVE: Patient reports she didn't sleep much due to roommate and didn't know how much therapy she would becapable of doing today but agreed to try Therapy Pain: Pre-therapy pain level: 0 / 10 Pain location: No pain - Location N/A Pain intervention(s): No pain - Intervention N/A Post-therapy pain level: 0 / 10 Pain scale used: 0-10 SCALE OBJECTIVE: APPEARANCE: Presentation upon OT arrival: Patient Supine with head of bed elevated Presentation upon OT departure: PATIENT Sitting in manual wheelchair with staff assistance Bed / chair alarm in place and activated upon OT departure: Yes Call light within arms reach of patient at end of session: No - due to patient taken to physical therapy gym Completed patient handoff and notified Physical Therapist / Physical Therapist Ultrasound Tester, name: Raudel, of patient's location and functional status upon completion of session. COGNITIVE / PERCEPTUAL: intact SELF CARE: Shower / Bathe Self Type of bathing: SPONGEBATHING Location of shower / bathe self: Sitting in manual wheelchair and Standing at the sink Tasks completed: ALL COMPONENTS Components that required assistance (if applicable): NONE Overall assist level: INCIDENTAL TOUCHING ASSISTANCE Adaptive equipment (if applicable): no assistive device Additional documentation: CGA for standing Oral Hygiene Patient and daughter report she completed oral care prior to therapy session Other Grooming Tasks Location of other grooming tasks: Sitting in manual wheelchair Tasks completed: WASHING HANDS, COMBING HAIR, and APPLYING DEODORANT Overall assist level: SUPERVISION ASSISTANCE / VERBAL CUES Additional documentation: N/A UE Dressing Location of UE dressing: Sitting in manual wheelchair Tasks completed: Pullover shirt Overall assist level: SUPERVISION ASSISTANCE / VERBAL CUES Additional documentation: N/A LE Dressing (Underwear / Pants) Location of LE dressing (Underwear / Pants): Sitting in manual wheelchair and Standing at the sink Tasks completed: Elastic waist pants and Incontinence briefs as underwear Overall assist level: PARTIAL / MODERATE ASSISTANCE: LESS THAN HALF (1% - 49%) Additional documentation: min assist for getting feet thru and CGA for standing during hip components Putting On / Taking Off Footwear Location of putting on / taking off footwear: Sitting in manual wheelchair Tasks completed: Slip-on shoe(s) Overall assist level: SUPERVISION ASSISTANCE / VERBAL CUES Additional documentation: with cross leg technique MOBILITY: Bed mobility: CGA or supine to sit Transfers: CGA for EOB to wheelchair with wheeled walker HEARING / SPEECH / VISION: Expression of ideas and wants Overall assist level: WITHOUT DIFFICULTY Understanding verbal and non-verbal content Overall assist level: UNDERSTANDS Caregiver present (yes / no): Yes: daughter Education & training provided: Role of OT, OT plan of care, and ADL training ASSESSMENT: Activity tolerance / response to OT: GOOD PARTICIPATION, GOOD MOTIVATION, and RECEPTIVE TO EDUCATION / TRAINING Progress towards goals: Please refer to Care Plan from this date for progress towards individual goals. PLAN: Therapy Plan: Please refer to most recent Inpatient Rehabilitation Team Conference note for discharge plan, including location, recommended level of supervision, and arrangements. Frequency of therapy: BID SESSIONS 5 DAYS / WEEK TO ADDRESS PREVIOUSLY ESTABLISHED DEFICITS AND GOALS TARA Owen 08/16/22 * Azalea Martinez - 08/15/2022 2:42 PM CDT Occupational Therapy NOTE TYPE: OT TREATMENT (CMR DEPARTMENT SESSION) PATIENT'S NAME: Abena Giron AGE / SEX: 82 y.o. / female ROOM: [place] [address] : 1940 DATE: 08/15/22 TIME IN: 1352 TIME OUT: 1436 Patient Active Problem List Diagnosis Hypertension Osteoarthritis Hyperlipidemia Coronary artery disease involving [place] coronary artery of [place] heart Paroxysmal atrial fibrillation (CMS/HCC) (HCC) Chronic GERD Anxiety Abdominal aortic aneurysm (AAA) without rupture (HCC) B12 deficiency Sick sinus syndrome (CMS/HCC) (HCC) GENNY (obstructive sleep apnea) History of coronary artery stent placement Cardiac pacemaker in situ 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) Ischemic stroke (HCC) Acute CVA (cerebrovascular accident) (HCC) Past Medical History: Diagnosis Date Adiposity obesity [...] Hyperlipidemia Hypertension Hypertension Myocardial infarction (CMS/HCC) (HCC) 2015 Sleep apnea Vertigo Past Surgical History: Procedure Laterality Date ABDOMINAL SURGERY CARDIAC PACEMAKER PLACEMENT CATARACT EXTRACTION W/ INTRAOCULAR LENS IMPLANT Bilateral CHOLECYSTECTOMY 1981 Cholecystectomy EYE SURGERY OTHER SURGICAL HISTORY Right 1980 partial oopherectomy OTHER SURGICAL HISTORY heart cath with stent 2013 [place]/[facility] OTHER SURGICAL HISTORY 2016 a.fib: loop recorder implanted OTHER SURGICAL HISTORY 2016 Atrial Fibrillation: Cardiovascular Intervention (ablation) SKIN BIOPSY PRECAUTIONS (INCLUDING WEIGHT-BEARING): Fall risk, Bed / chair alarm, and Aspiration precautions SUBJECTIVE: The air feels so good THERAPY PAIN: PRE-THERAPY PAIN LEVEL: 0 / 10 PAIN LOCATION: No pain - Location N/A PAIN INTERVENTION(S): No pain - Intervention N/A POST-THERAPY PAIN LEVEL: 0 / 10 PAIN SCALE USED: 0-10 SCALE OBJECTIVE: APPEARANCE: PRESENTATION UPON OT ARRIVAL: PATIENT Supine with head of bed elevated PRESENTATION UPON OT DEPARTURE: PATIENT Sitting in manual wheelchair with staff assistance BED / CHAIR ALARM IN PLACE AND ACTIVATED UPON OT DEPARTURE: Yes CALL LIGHT WITHIN ARMS REACH OF PATIENT AT END OF SESSION: No - due to patient taken to physical therapy gym COMPLETED PATIENT HANDOFF AND NOTIFIED Physical Therapist / Physical Therapist Ultrasound Tester, NAME: Raudel, OF PATIENT'S LOCATION AND FUNCTIONAL STATUS UPON COMPLETION OF SESSION COGNITIVE / PERCEPTUAL: Pt. Alert and participatory, very excited to be going outside for therapy MOBILITY: TRANSFERS: Supine to seated EOB-->SPV Seated EOB--stand pivot to sit in w/c-->CGA LIVING SKILLS: ADDITIONAL ACTIVITIES: Gardening task (OVERALL ASSIST LEVEL): MIN physical assist LOCATION: sitting in w/c in outside courtyard ACTIVITY DESCRIPTION: Pt. Able to plant and water 4 garcia into two pots using BUE. Pt. Used RUE to shovel dirt into pots. Pt. Needed MIN physical assist for RUE positioning due to decreased proprioception. Pt. Verbalized enjoying the task and being outside. CAREGIVER PRESENT (YES / NO): Yes: Daughters, Nadia and Tambre EDUCATION & TRAINING PROVIDED: Role of OT, OT plan of care, Bed mobility training, Functional transfer training, Family / Caregiver training, and The following handouts were provided Tub transferbench paul list Pt. And family provided handout for tub transfer bench paul list and discussed Pt.'s current bathroom and tub/shower set up. Therapist able to provide verbal assistance with problem solving bathroomset up. Pt.'s family verbalized understanding and mentioned installing grab bars into tub/shower aswell. All questions and concerns addressed. ASSESSMENT: ACTIVITY TOLERANCE / RESPONSE TO OT: GOOD PARTICIPATION, GOOD MOTIVATION, RECEPTIVE TO EDUCATION / TRAINING, and FAIR TOLERANCE PROGRESS TOWARDS GOALS: PLEASE REFER TO CARE PLAN FROM THIS DATE FOR PROGRESS TOWARDS INDIVIDUAL GOALS PLAN: PLEASE REFER TO MOST RECENT INPATIENT REHABILITATION TEAM CONFERENCE NOTE FOR DISCHARGE PLAN, INCLUDING LOCATION, RECOMMENDED LEVEL OF SUPERVISION AND ARRANGEMENTS. FREQUENCY OF THERAPY: BID SESSIONS 5 DAYS / WEEK TO ADDRESS PREVIOUSLY ESTABLISHED DEFICITS AND GOALS Azalea Martinez 08/15/22 Cosigned by Hiral Parks OT at 08/20/2022 7:25 AM CDT * Bell Moffett, SALES HUNTER - 08/15/2022 1:30 PM CDT Speech Language/Pathology SPEECH LANGUAGE PATHOLOGY PROGRESS NOTE Patient's Name: Abena Giron : 1940 Age: 82 y.o. 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) Ischemic stroke (HCC) Acute CVA (cerebrovascular accident) (HCC) Past Medical History: Diagnosis Date Adiposity obesity [...] Hyperlipidemia Hypertension Hypertension Myocardial infarction (CMS/HCC) (HCC) 2015 Sleep apnea Vertigo Past Surgical History: Procedure Laterality Date ABDOMINAL SURGERY CARDIAC PACEMAKER PLACEMENT CATARACT EXTRACTION W/ INTRAOCULAR LENS IMPLANT Bilateral CHOLECYSTECTOMY 1981 Cholecystectomy EYE SURGERY OTHER SURGICAL HISTORY Right 1980 partial oopherectomy OTHER SURGICAL HISTORY heart cath with stent 2013 [place]/[facility] OTHER SURGICAL HISTORY 2016 a.fib: loop recorder implanted OTHER SURGICAL HISTORY 2016 Atrial Fibrillation: Cardiovascular Intervention (ablation) SKIN BIOPSY SUBJECTIVE MENTAL STATUS: alert,oriented. PAIN: Pre Therapy Pain Level:0 Pain Location: Pain Intervention: Post Therapy Pain Level/Response to Intervention:0 OBJECTIVE PRECAUTIONS: fall SWALLOWING: puree/thin diet being tolerated. COGNITION: intact,impulsive. COMMUNICATION: dysarthria TREATMENT ACTIVITIES: oral exercises,speech intelligibility at sentence level tasks: 80% with cues EDUCATION: PATIENT/FAMILY EDUCATION: therapy schedule and discharge date Response to Education: patient in agreement to stay until next team conference . ASSESSMENT Activity Tolerance/Response to S.T.: good Barriers to learning: emotional,communication Current status: moderate dysarthria and dysphagia. Word finding deficits have improved. Progress toward goals: Patient continues to progress toward previously set goals which remain appropriate at this time. PLAN Multi-Disciplinary Problems (from Speech Therapy) Active Problems Problem: Swallowing Start Date: 08/12/22 Goal Start Date Expected End Date End Date LTG - Patient will tolerate the least restrictive diet consistency to allow for safe consumption ofdaily meals 08/12/22 08/19/22 -- Problem: Communication/Motor Speech Start Date: 08/12/22 Goal Start Date Expected End Date End Date STG - Patient will participate in oral-motor exercises to improve strength 08/12/22 08/19/22 -- Goal Start Date Expected End Date End Date STG - Patient will identify and utilize word retrieval Intervention in structured tasks 08/12/22 08/19/22 -- Goal Start Date Expected End Date End Date STG - Patient will use speech intelligibility Intervention at conversational level 08/12/22 08/19/22 -- Frequency of Treatment: bid 5x weekly Recommendations: home with family If this is the last note, consider this the discharge summary. * Raudel Ferrara, PT - 08/15/2022 12:58 PM CDT Physical Therapy PT PROGRESS NOTE Abena Giron 82 y.o. 1940 Past Medical History: Diagnosis Date Adiposity obesity [...] Hyperlipidemia Hypertension Hypertension Myocardial infarction (CMS/HCC) (HCC) 2015 Sleep apnea Vertigo Past Surgical History: Procedure Laterality Date ABDOMINAL SURGERY CARDIAC PACEMAKER PLACEMENT CATARACT EXTRACTION W/ INTRAOCULAR LENS IMPLANT Bilateral CHOLECYSTECTOMY 1980 Cholecystectomy EYE SURGERY OTHER SURGICAL HISTORY Right 1980 partial oopherectomy OTHER SURGICAL HISTORY heart cath with stent 2013 [place] OTHER SURGICAL HISTORY 2016 a.fib: loop recorder implanted OTHER SURGICAL HISTORY 2016 Atrial Fibrillation: Cardiovascular Intervention (ablation) SKIN BIOPSY Patient Active Problem List Diagnosis Hypertension Osteoarthritis Hyperlipidemia Coronary artery disease involving [place] coronary artery of [place] heart Paroxysmal atrial fibrillation (CMS/HCC) (HCC) Chronic GERD Anxiety Abdominal aortic aneurysm (AAA) without rupture (HCC) B12 deficiency Sick sinus syndrome (CMS/HCC) (HCC) GENNY (obstructive sleep apnea) History of coronary artery stent placement Cardiac pacemaker in situ 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 States her low back is sore. MENTAL STATUS/ORIENTATION: Alert and oriented x4 PAIN: reporting mild low back pain that improved after mat exercises. OBJECTIVE PRECAUTIONS: fall, aspiration APPEARANCE/POSTURE: sitting in w/c in gym, alarm activated, no apparent distress. Daughter present. VITAL SIGNS: no s/s of distress MOBILITY DOCUMENTATION: Bed Mobility: min assist for sit to supine onto higher mat but supervision for sit to supine into hospital bed. Supervision/CG assist for supine to sit off mat. Transfers: CG assist for sit to/from stand with w/w, moderate cues for hand placement throughout session. Ambulation: CG assist for 20' + 20' + 30' for cone activity with w/w, diminished RLE clearance and step length, cues for attention to R side specifically R hand as it would fall off walker on turns intermittently. Stairs: NT Wheelchair management & propulsion: NT TREATMENT: 1) lumbar rotation on [place] ball for hip rotation and trunk control x1 minute 2) supine HEP 1x15: SAQ w/ 2#, heel slides w/ 2#, hip add ball squeeze w/ mini hip bridge, BKFO w/ blue TB 3) stepping over noodles with w/w, moderate cues for safety and walker placement, min assist overall for steadying. Appearance/Posture at end of treatment session: supine in bed with HOB upright, alarm activated, room air, call light in reach, no apparent distress. RN, Beatriz, given handoff. EDUCATION: PATIENT/FAMILY EDUCATION: HEP, safety with w/w, gait training, PT POC Response to Education: needs reinforcement and verbalizes understanding ASSESSMENT Activity tolerance/response to PT: Patient continues to require cues for safety and pacing activitydue to her mild impulsivity and lack of attention to R side. Receptive to all education though. Barriers to learning: unchanged from AM Barriers to discharge: unchanged from AM Patient continues progressing toward previously set goals which remain appropriate at this time. PLAN Patient to be seen bid 5x/week to address previously established deficits and goals. * Opal Mace MD - 08/15/2022 9:59 AM CDT INPATIENT REHABILITATION DAILY PROGRESS NOTE CHIEF COMPLAINT: CVA SUBJECTIVE: Feels better this morning. Used her home medication for bowel regimen. Daughter present OBJECTIVE: VITALS: Vitals: 08/14/22 0750 08/14/22 1946 08/14/222 08/15/22 0712 BP: 114/57 118/54 143/87 BP Location: Right arm Right arm Left arm Patient Position: Sitting Lying Pulse: 75 69 75 Resp: 20 18 18 Temp: 36.4 ??C (97.5 ??F) 36.4 ??C (97.6 ??F) 36.5 ??C (97.7 ??F) TempSrc: Tympanic Oral Temporal SpO2: 98% 98% 96% Weight: Height: PHYSICAL EXAM: General: no acute distress, in bed HEENT: normocephalic, trachea midline Heart: rrr Lungs: ctab GI: soft, nontender Neuro: alert, oriented, dysarthric LABS/RADIOLOGY/DIAGNOSTIC REVIEW Recent Labs Lab Units 08/13/22 0937 WBC K/cumm 8.9 HEMOGLOBIN g/dL 12.2 HEMATOCRIT % 38.4 PLATELETS K/cumm 335 Recent Labs Lab Units 08/13/22 0937 SODIUM mmol/L 139 POTASSIUM PLASMA mmol/L 4.0 CHLORIDE mmol/L 102 CO2 mmol/L 26 ANIONGAP mmol/L 11 GLUCOSE mg/dL 105 BUN SERUM mg/dL 23 CREATININE mg/dL 0.76 CALCIUM mg/dL 9.2 ALBUMIN g/dL 3.5 ALK PHOS Units/L 35* ALT Units/L 13 AST Units/L 28 BILIRUBIN TOTAL mg/dL 0.5 Recent Labs Lab Units 08/13/22 0937 08/11/22 2154 08/11/22 0547 08/09/22 2039 08/08/22 2253 08/08/22 2139 GLUCOSE mg/dL 105 90 96 112 -- 119 POC GLUCOSE MONITOR mg/dL -- -- -- -- 124 -- OT Functional Mobility: 08/13 transfers: MIN/CGA OT Self Care: 08/13 bathing/toileting CGA, UB/LB dressing/footwear MIN, oral hygiene/grooming Set-up SALES HUNTER Cognition: oriented x3 SALES HUNTER Communication: word finding deficits and dysarthria SALES HUNTER Swallowing: assessed at . Patient with oral dysphagia/puree diet/thin liquids. PT Functional Mobility: 08/13/22: Bed Mobility: CG assist for sit to/from supine, increased time needed to sit up and cues to not hold breath. Supervision with verbal cues for technique for rolling. Transfers: CG assist for sit to/from stand with w/w and maximal cues for hand placement. CG/min assist for sit to/from stand with SBQC, cues for upright posture. Ambulation: CG assist for 50' with w/w,cues for R hand to stay on walker, fast/impulsive kimberly, w/w too far in front and poor obstacle avoidance. Stairs: min assist for 4 steps with bilateral handrail, moderate cues for LE sequencing. Increased instability during descent with associated reports of weakness. No results found. MEDICATIONS: Current Facility-Administered Medications: acetaminophen (TYLENOL) tablet 650 mg, 650 mg, oral, Q6H PRN, Opal Mace MD apixaban (ELIQUIS) tablet 5 mg, 5 mg, oral, Q12H NAVEED, Opal Mace MD, 5 mg at 08/15/22 0816 aspirin chewable tablet 81 mg, 81 mg, oral, Daily, Opal Mace MD, 81 mg at 08/15/22 0816 calcium carbonate (TUMS) chewable tablet 1,000 mg, 400 mg of elemental calcium, oral, TID PRN, Opal Mace MD dapagliflozin (FARXIGA) tablet 10 mg, 10 mg, oral, Daily, Opal Mace MD, 10 mg at08/15/22 0815 furosemide (LASIX) tablet 40 mg, 40 mg, oral, Daily, Opal Mace MD, 40 mg at 08/15/22 0814 [Held by Provider] losartan (COZAAR) tablet 12.5 mg, 12.5 mg, oral, Daily, Opal Mace MD, 12.5 mg at 08/13/22 0821 metoprolol XL (TOPROL-XL) extended release tablet 12.5 mg, 12.5 mg, oral, Daily, Opal Mace MD, 12.5 mg at 08/15/22 0815 ondansetron ODT (ZOFRAN-ODT) disintegrating tablet 4 mg, 4 mg, oral, TID PRN, Opal Mace MD, 4 mg at 08/14/22999 ramelteon (ROZEREM) tablet 8 mg, 8 mg, oral, Nightly PRN, Opal Mace MD, 8 mg at 08/14/222017 rosuvastatin (CRESTOR) tablet 10 mg, 10 mg, oral, Nightly, Opal Mace MD, 10 mg at 08/14/222017 senna-docusate (PERICOLACE) 8.6-50 mg per tablet 1 tablet, 1 tablet, oral, BID PRN, Opal Mace MD simethicone (MYLICON) chewable tablet 80 mg, 80 mg, oral, TID PRN, Opal Haywood MD spironolactone (ALDACTONE) split tablet 12.5 mg, 12.5 mg, oral, Daily, Opal Haywood MD, 12.5 mg at 08/15/22 0823 traZODone (DESYREL) tablet 25 mg, 25 mg, oral, Nightly PRN, Opal Mace MD ASSESSMENT/PLAN: MEDICAL PLAN OF CARE: 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, TNK Dysphagia Right hemiparesis Dysarthria Impaired mobility, ADLs, transfers, gait, balance, strength, endurance, speech, cognition, swallow Continue PT, OT Continue SALES HUNTER Continue Aspirin 81mg, Eliquis 5mg bid, rosuvastatin 10mg qhs HLD: continue rosuvastatin 10mg qhs HTN Afib s/p AV node ablation Sick sinus syndrome s/p pacemaker AAA HFrEF ER 20% CAD s/p stent 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 Okay at rest. Watch closely GERD: monitor for symptoms, tums prn Anemia : monitor hgb Anxiety: monitor Pain: Continue Tylenol 650mg q6h prn Bowels: Continue miralax daily, pericolace bid prn, simethicone prn. 08/14: dc miralax, family to bring in patient's home medicine Nausea: Continue Zofran prn, Tums prn Insomnia: Continue trazodone 25mg qhs prn Diet: puree/thin, NO GRAVY DVT ppx: eliquis Precautions: Fall, aspiration Weightbearing status: Full Code: LIMITED - No CPR Care discussed with Nursing REHAB PLAN OF CARE: Patient's expected intensity and duration of participation in the interdisciplinary rehabilitation program and disciplines that comprise this team: Therapies required to achieve goals:The patient will benefit from integrated coordination of care from the following interdisciplinary services: Medical Supervision, 24 hours Rehabilitation Nursing, Physical Therapy, Occupational Therapy, Case Management; Speech Therapy; Social Work Frequency and duration of therapies expect to be:Expected intensity and frequency of participation in the interdisciplinary rehab program is: 3 hours of therapy 5 days per week for the duration of length of stay Expected intensity and frequency of Physical Therapy (PT): 1.5 hours per day over 5-7 days for the duration of length of stay Expected intensity and frequency of Occupational Therapy (OT): 1.5 hours per day over 5-7 days per week for the duration of length of stay Expected intensity and frequency of Speech Therapy (SALES HUNTER): 1 hour per day per day over 5-7 days per week for the duration of length of stay FUNCTIONAL CHANGE: DISCHARGE PLANNING: Expected Discharge Date: TBD Equipment: TBD Family Training: SW to set up Education: Follow up Appointments: PCP 1-2weeks Neurology 1-2 weeks Cardiology 1-2 weeks Opal Mace MD Physical Medicine and Rehabilitation I can be reached from 7am-7pm through phone or perfect serve. Hospitalist front desk receptionist from 7pm-7am * Azalea Martinez - 08/15/2022 8:57 AM CDT Occupational Therapy NOTE TYPE: OT TREATMENT (CMR BEDSIDE SESSION) Patient's Name: Abena Giron Age / Sex: 82 y.o. 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 Arthritis Atrial fibrillation (CMS/HCC) (HCC) CHF (congestive heart failure) ([facility]/HCC) ([facility]) Colon polyp Depression Diverticulosis Dysphagia Gastroesophageal reflux disease GERD History of loop recorder HX OTHER MEDICAL Depression, with Anxiety HX OTHER MEDICAL DJD HX OTHER MEDICAL a.fib HX OTHER MEDICAL Atrial Fibrillation; Outcome: heart ablation Hyperlipidemia Hyperlipidemia Hypertension Hypertension Myocardial infarction (CMS/HCC) ([facility]) 2014 Sleep apnea Vertigo Past Surgical History: Procedure Laterality Date ABDOMINAL SURGERY CARDIAC PACEMAKER PLACEMENT CATARACT EXTRACTION W/ INTRAOCULAR LENS IMPLANT Bilateral CHOLECYSTECTOMY 1981 Cholecystectomy EYE SURGERY OTHER SURGICAL HISTORY Right 1980 partial oopherectomy OTHER SURGICAL HISTORY heart cath with stent 2013 [place]/[facility] OTHER SURGICAL HISTORY 2016 a.fib: loop recorder implanted OTHER SURGICAL HISTORY 2016 Atrial Fibrillation: Cardiovascular Intervention (ablation) SKIN BIOPSY Precautions (Including Weight-Bearing): Fall risk, Bed / chair alarm, and Aspiration precautions SUBJECTIVE: That felt so good after wet walk-in shower Therapy Pain: Pre-therapy pain level: 0 / 10 Pain location: No pain - Location N/A Pain intervention(s): No pain - Intervention N/A Post-therapy pain level: 0 / 10 Pain scale used: 0-10 SCALE OBJECTIVE: APPEARANCE: Presentation upon OT arrival: Patient Supine with head of bed elevated Presentation upon OT departure: PATIENT Sitting in manual wheelchair at bedside Bed / chair alarm in place and activated upon OT departure: Yes Call light within arms reach of patient at end of session: Yes Completed patient handoff and notified Physical Therapist / Physical Therapist Ultrasound Tester, name: Raudel, of patient's location and functional status upon completion of session. COGNITIVE / PERCEPTUAL: Pt. Alert and participatory, easy to engage in conversation SELF CARE: Shower / Bathe Self Type of bathing: WET WALK-IN SHOWER Location of shower / bathe self: Sitting on fold-down shower bench Tasks completed: ALL COMPONENTS Components that required assistance (if applicable): NONE Overall assist level: PARTIAL / MODERATE ASSISTANCE: LESS THAN HALF (1% - 49%) Adaptive equipment (if applicable): handheld shower nozzle Additional documentation: pt. Able to use RUE with MIN A for positioning during shower, MIN A overall Oral Hygiene Location of oral hygiene: Sitting in manual wheelchair Overall assist level: SET-UP / CLEAN-UP ASSISTANCE Additional documentation: Pt. Able to squeeze toothpaste onto toothbrush with R hand Other Grooming Tasks Location of other grooming tasks: Sitting in manual wheelchair Tasks completed: COMBING HAIR Overall assist level: PARTIAL / MODERATE ASSISTANCE: LESS THAN HALF (1% - 49%) Additional documentation: MIN A for positioning RUE during task UE Dressing Location of UE dressing: Sitting in manual wheelchair Tasks completed: Pullover shirt Overall assist level: PARTIAL / MODERATE ASSISTANCE: LESS THAN HALF (1% - 49%) Additional documentation: MIN A for threading RUE LE Dressing (Underwear / Pants) Location of LE dressing (Underwear / Pants): Sitting in manual wheelchair and Standing at sink Tasks completed: Underwear and Elastic waist pants Overall assist level: PARTIAL / MODERATE ASSISTANCE: LESS THAN HALF (1% - 49%) Additional documentation: MIN A for pulling up pants on R side Putting On / Taking Off Footwear Location of putting on / taking off footwear: Sitting in manual wheelchair Tasks completed: Slip-on shoe(s) Overall assist level: PARTIAL / MODERATE ASSISTANCE: LESS THAN HALF (1% - 49%) Additional documentation: MIN A for donning L shoe MOBILITY: Tub / shower transfer Location: WALK-IN SHOWER Overall assist level: INCIDENTAL TOUCHING ASSISTANCE Device: GRAB BARS Additional documentation: CGA Bed mobility: Supine to seated EOB-->SPV Seated EOB--stand pivot to sit in w/c-->CGA Transfers: Sit to/from stand-->CGA HEARING / SPEECH / VISION: Expression of ideas and wants Overall assist level: SOME DIFFICULTY Understanding verbal and non-verbal content Overall assist level: UNDERSTANDS Caregiver present (yes / no): Yes: Daughter, Taj Education & training provided: Role of OT, OT plan of care, ADL training, Compensatory ADL strategies, Bed mobility training, and Functional transfer training ASSESSMENT: Activity tolerance / response to OT: GOOD PARTICIPATION, GOOD MOTIVATION, RECEPTIVE TO EDUCATION / TRAINING, FAIR TOLERANCE, and MIN REST BREAKS REQUIRED Progress towards goals: Please refer to Care Plan from this date for progress towards individual goals. PLAN: Therapy Plan: Please refer to most recent Inpatient Rehabilitation Team Conference note for discharge plan, including location, recommended level of supervision, and arrangements. Frequency of therapy: BID SESSIONS 5 DAYS / WEEK TO ADDRESS PREVIOUSLY ESTABLISHED DEFICITS AND GOALS Azalea Martinez 08/15/22 Cosigned by Hiral Parks OT at 08/15/2022 2:46 PM CDT * Bell Moffett, SALES HUNTER - 08/15/2022 8:55 AM CDT Speech Language/Pathology SPEECH LANGUAGE PATHOLOGY PROGRESS NOTE Patient's Name: Abena Giron : 1940 Age: 82 y.o. 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) Ischemic stroke (HCC) Acute CVA (cerebrovascular accident) (HCC) Past Medical History: Diagnosis Date Adiposity obesity [...] Hyperlipidemia Hypertension Hypertension Myocardial infarction (CMS/HCC) (HCC) 2015 Sleep apnea Vertigo Past Surgical History: Procedure Laterality Date ABDOMINAL SURGERY CARDIAC PACEMAKER PLACEMENT CATARACT EXTRACTION W/ INTRAOCULAR LENS IMPLANT Bilateral CHOLECYSTECTOMY 1981 Cholecystectomy EYE SURGERY OTHER SURGICAL HISTORY Right 1980 partial oopherectomy OTHER SURGICAL HISTORY heart cath with stent 2014 [place] OTHER SURGICAL HISTORY 2016 a.fib: loop recorder implanted OTHER SURGICAL HISTORY 2016 Atrial Fibrillation: Cardiovascular Intervention (ablation) SKIN BIOPSY SUBJECTIVE MENTAL STATUS: alert,cooperative. Daughter present. PAIN: Pre Therapy Pain Level:0 Pain Location: Pain Intervention: Post Therapy Pain Level/Response to Intervention:0 OBJECTIVE PRECAUTIONS: fall SWALLOWING: tolerating pureed diet/thin liquids COGNITION: intact COMMUNICATION: dysarthric with mild word finding deficits TREATMENT ACTIVITIES: oral motor exercises, speech at sentence level:70% intelligible. EDUCATION: PATIENT/FAMILY EDUCATION: discussed progress with daughter Response to Education: verbalized understanding. ASSESSMENT Activity Tolerance/Response to S.T.: good Barriers to learning: communication Current status: moderate dysarthria and mild word finding deficits. Moderate oral dysphagia. Progress toward goals: Patient continues to progress toward previously set goals which remain appropriate at this time. PLAN Multi-Disciplinary Problems (from Speech Therapy) Active Problems Problem: Swallowing Start Date: 08/12/22 Goal Start Date Expected End Date End Date LTG - Patient will tolerate the least restrictive diet consistency to allow for safe consumption ofdaily meals 08/12/22 08/19/22 -- Problem: Communication/Motor Speech Start Date: 08/12/22 Goal Start Date Expected End Date End Date STG - Patient will participate in oral-motor exercises to improve strength 08/12/22 08/19/22 -- Goal Start Date Expected End Date End Date STG - Patient will identify and utilize word retrieval Intervention in structured tasks 08/12/22 08/19/22 -- Goal Start Date Expected End Date End Date STG - Patient will use speech intelligibility Intervention at conversational level 08/12/22 08/19/22 -- Frequency of Treatment: bid 5x weekly Recommendations: home with assist from family. If this is the last note, consider this the discharge summary. * Raudel Ferrara, PT - 08/15/2022 8:03 AM CDT Physical Therapy PT PROGRESS NOTE Grady Marlena Mack 82 y.o. 1940 Past Medical History: Diagnosis Date Adiposity obesity [...] EXTRACTION W/ INTRAOCULAR LENS IMPLANT Bilateral CHOLECYSTECTOMY 1980 Cholecystectomy EYE SURGERY OTHER SURGICAL HISTORY Right 1980 partial oopherectomy OTHER SURGICAL HISTORY heart cath with stent 2013 [place] OTHER SURGICAL HISTORY 2016 a.fib: loop recorder implanted OTHER SURGICAL HISTORY 2016 Atrial Fibrillation: Cardiovascular Intervention (ablation) SKIN BIOPSY Patient Active Problem List Diagnosis Hypertension Osteoarthritis Hyperlipidemia Coronary artery disease involving [place] coronary artery of [place] heart Paroxysmal atrial fibrillation (CMS/HCC) (HCC) Chronic GERD Anxiety Abdominal aortic aneurysm (AAA) without rupture (HCC) B12 deficiency Sick sinus syndrome (CMS/HCC) (HCC) GENNY (obstructive sleep apnea) History of coronary artery stent placement Cardiac pacemaker in situ 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 MENTAL STATUS/ORIENTATION: Alert and oriented x4. Patient emotional this date about wanting to go and lack of independence. Redirectable and responded well to encouragement. PAIN: Pre-therapy pain level: 0/10 Post-therapy pain level/response to intervention: 0/10 OBJECTIVE PRECAUTIONS: fall, aspiration APPEARANCE/POSTURE: coming to gym in w/c with rehabilitation supervisor, no apparent distress. Alarm activated. Daughter present. VITAL SIGNS: Resting BP: - Post-activity BP: 135/58 (arm raised to level of heart for accuracy) Resting heart rate: - Post-activity heart rate: 70 Resting O2 sat: - Post-activity O2 sat: - MOBILITY DOCUMENTATION: Bed Mobility: NT Transfers: CG for sit to/from stand with w/w with moderate cues for hand placement. Patient required min/mod assist on one occasion due to stepping when hand not entirely on walker resulting in LOB forward. Ambulation: CG assist for 70' with w/w, slow/smooth kimberly with only intermittent catch of RLE, safe walker use demonstrated after LOB scare during transfer. Occasionally has to readjust R hand gripon walker. Stairs: NT Wheelchair management & propulsion: NT TREATMENT: 1) standing HEP 1x10 w/ 2#: hip flexion, marches, calf raises, hip abduction, knee flexion, mini squats 2) monster walk at hemibar w/ green TB x2 sets down/back. Cues for technique to keep green TB taut throughout . Appearance/Posture at end of treatment session: sitting in recliner, alarm activated, room air, call light in reach, daughter present, no apparent distress. RNBeatriz, given handoff. EDUCATION: PATIENT/FAMILY EDUCATION: HEP, standing balance and strength, gait training, safety with mobility and w/w use, stroke recovery, PT POC Response to Education: needs reinforcement and verbalizes understanding ASSESSMENT Activity tolerance/response to PT: Patient tolerated all activities well, yet remains impulsive andrushes activities. Resulted in LOB today requiring significant assist from therapist. Daughter present to assist and comfort and to reinforce therapist's education on stroke recovery process, safety,and progress since onset of symptoms. Barriers to learning: Physical and Language Barriers to discharge: Impulsivity, Limited safety awareness, Decreased endurance, Upper extremity weakness, and Lower extremity weakness Patient continues progressing toward previously set goals which remain appropriate at this time. PLAN Patient to be seen bid 5x/week to address previously established deficits and goals. * Azalea Martinez - 08/14/2022 1:43 PM CDT Occupational Therapy NOTE TYPE: OT TREATMENT (CMR DEPARTMENT SESSION) PATIENT'S NAME: Abena Giron AGE / SEX: 82 y.o. 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) Ischemic stroke (HCC) Acute CVA (cerebrovascular accident) (HCC) Past Medical History: Diagnosis Date Adiposity obesity [...] Hyperlipidemia Hypertension Hypertension Myocardial infarction (CMS/HCC) (HCC) 2015 Sleep apnea Vertigo Past Surgical History: Procedure Laterality Date ABDOMINAL SURGERY CARDIAC PACEMAKER PLACEMENT CATARACT EXTRACTION W/ INTRAOCULAR LENS IMPLANT Bilateral CHOLECYSTECTOMY 1981 Cholecystectomy EYE SURGERY OTHER SURGICAL HISTORY Right 1980 partial oopherectomy OTHER SURGICAL HISTORY heart cath with stent 2013 [place] OTHER SURGICAL HISTORY 2016 a.fib: loop recorder implanted OTHER SURGICAL HISTORY 2016 Atrial Fibrillation: Cardiovascular Intervention (ablation) SKIN BIOPSY PRECAUTIONS (INCLUDING WEIGHT-BEARING): Fall risk, Bed / chair alarm, and Aspiration precautions SUBJECTIVE: I'm exhausted after UE exercises THERAPY PAIN: PRE-THERAPY PAIN LEVEL: 0 / 10 PAIN LOCATION: No pain - Location N/A PAIN INTERVENTION(S): No pain - Intervention N/A POST-THERAPY PAIN LEVEL: 0 / 10 PAIN SCALE USED: 0-10 SCALE OBJECTIVE: APPEARANCE: PRESENTATION UPON OT ARRIVAL: PATIENT Sitting on standard toilet PRESENTATION UPON OT DEPARTURE: PATIENT Sitting in manual wheelchair with staff assistance BED / CHAIR ALARM IN PLACE AND ACTIVATED UPON OT DEPARTURE: Yes CALL LIGHT WITHIN ARMS REACH OF PATIENT AT END OF SESSION: No - due to patient taken to physical therapy gym COMPLETED PATIENT HANDOFF AND NOTIFIED Physical Therapist / Physical Therapist Ultrasound Tester, NAME: Raudel, OF PATIENT'S LOCATION AND FUNCTIONAL STATUS UPON COMPLETION OF SESSION COGNITIVE / PERCEPTUAL: Pt. Alert and participatory, easy to engage in conversation. Visual Perceptual assessment (OVERALL ASSIST LEVEL): MIN verbal cues LOCATION: sitting in w/c at table in OT gym ACTIVITY DESCRIPTION: Pt. Able to follow therapist's pen to assess divergence/convergence, tracking, visual field, smooth pursuits. Therapist noted mild difficulty tracking in R eye. Family and pt. Noted mild changes in R eye vision w/ & w/o glasses. TOILETING LOCATION: SITTING ON STANDARD TOILET and STANDING AT STANDARD TOILET TASKS COMPLETED: HYGIENE MANAGEMENT and CLOTHING MANAGEMENT POST-TOILETING OVERALL ASSIST LEVEL: PARTIAL / MODERATE ASSISTANCE: LESS THAN HALF (1% - 49%) ADDITIONAL DOCUMENTATION: MIN A for pulling up pants on R side UE THERAPEUTIC EXERCISES: EXERCISE TYPE: B UE STRENGTHENING USING 2 # HAND/WRIST WEIGHTS, B UE STRENGTHENING USING 2 # DOWEL CAROLINE, and B UE FINE MOTOR COORDINATION using pink soft-medium resistance theraputty MUSCLE GROUP(S): shoulder, arm, elbow, wrist, hand NUMBER OF REPETITIONS: 10 ASSIST LEVEL: MIN PHYSICAL ASSIST LOCATION OF COMPLETION: sitting in w/c at table in OT gym TOLERANCE: Good, pt. Needed [id number] assist to demonstrate exercises on R hand due to proprioception deficits. MOBILITY: TOILET TRANSFER LOCATION: STANDARD TOILET OVERALL ASSIST LEVEL: INCIDENTAL TOUCHING ASSISTANCE DEVICE: GRAB BARS ADDITIONAL DOCUMENTATION: CGA TRANSFERS: Sit to/from stand-->CGA CAREGIVER PRESENT (YES / NO): Yes: Daughters EDUCATION & TRAINING PROVIDED: Role of OT, OT plan of care, Functional transfer training, UE home exercise program, Family / Caregiver training, and Visual / Perceptual skills ASSESSMENT: ACTIVITY TOLERANCE / RESPONSE TO OT: GOOD PARTICIPATION, GOOD MOTIVATION, RECEPTIVE TO EDUCATION / TRAINING, and FAIR TOLERANCE PROGRESS TOWARDS GOALS: PLEASE REFER TO CARE PLAN FROM THIS DATE FOR PROGRESS TOWARDS INDIVIDUAL GOALS PLAN: PLEASE REFER TO MOST RECENT INPATIENT REHABILITATION TEAM CONFERENCE NOTE FOR DISCHARGE PLAN, INCLUDING LOCATION, RECOMMENDED LEVEL OF SUPERVISION AND ARRANGEMENTS. FREQUENCY OF THERAPY: BID SESSIONS 5 DAYS / WEEK TO ADDRESS PREVIOUSLY ESTABLISHED DEFICITS AND GOALS Azalea Martinez 08/14/22 Cosigned by Hiral Parks OT at 08/14/2022 4:55 PM CDT * Bell Moffett, SALES HUNTER - 08/14/2022 1:28 PM CDT Speech Language/Pathology SPEECH LANGUAGE PATHOLOGY PROGRESS NOTE Patient's Name: Abena Giron : 1940 Age: 82 y.o. 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 Arthritis Atrial fibrillation (CMS/HCC) (HCC) CHF (congestive heart failure) (CMS/HCC) (FORM[facility]) Colon polyp Depression Diverticulosis Dysphagia Gastroesophageal reflux disease GERD History of loop recorder HX OTHER MEDICAL Depression, with Anxiety HX OTHER MEDICAL DJD HX OTHER MEDICAL a.fib HX OTHER MEDICAL Atrial Fibrillation; Outcome: heart ablation Hyperlipidemia Hyperlipidemia Hypertension Hypertension Myocardial infarction (CMS/HCC) ([facility]) 2014 Sleep apnea Vertigo Past Surgical History: Procedure Laterality Date ABDOMINAL SURGERY CARDIAC PACEMAKER PLACEMENT CATARACT EXTRACTION W/ INTRAOCULAR LENS IMPLANT Bilateral CHOLECYSTECTOMY 1981 Cholecystectomy EYE SURGERY OTHER SURGICAL HISTORY Right 1980 partial oopherectomy OTHER SURGICAL HISTORY heart cath with stent 2013 [place] OTHER SURGICAL HISTORY 2016 a.fib: loop recorder implanted OTHER SURGICAL HISTORY 2016 Atrial Fibrillation: Cardiovascular Intervention (ablation) SKIN BIOPSY SUBJECTIVE MENTAL STATUS: alert, complains of mild nausea PAIN: Pre Therapy Pain Level:0 Pain Location: Pain Intervention: Post Therapy Pain Level/Response to Intervention:0 OBJECTIVE PRECAUTIONS: fall SWALLOWING: tolerating puree with thin liquids COGNITION: intact. Decreased safety at times COMMUNICATION: dysarthria with word finding deficits TREATMENT ACTIVITIES: speech intelligibility at sentence level: 70%;oral exercises EDUCATION: PATIENT/FAMILY EDUCATION: discussed therapy goals Response to Education: verbalized understanding ASSESSMENT Activity Tolerance/Response to S.T.: good Barriers to learning: communication Current status: moderate dysarthria and mild word finding deficits Progress toward goals: Patient continues to progress toward previously set goals which remain appropriate at this time. PLAN Multi-Disciplinary Problems (from Speech Therapy) Active Problems Problem: Swallowing Start Date: 08/12/22 Goal Start Date Expected End Date End Date LTG - Patient will tolerate the least restrictive diet consistency to allow for safe consumption ofdaily meals 08/12/22 08/19/22 -- Problem: Communication/Motor Speech Start Date: 08/12/22 Goal Start Date Expected End Date End Date STG - Patient will participate in oral-motor exercises to improve strength 08/12/22 08/19/22 -- Goal Start Date Expected End Date End Date STG - Patient will identify and utilize word retrieval Intervention in structured tasks 08/12/22 08/19/22 -- Goal Start Date Expected End Date End Date STG - Patient will use speech intelligibility Intervention at conversational level 08/12/22 08/19/22 -- Frequency of Treatment: bid 5x weekly Recommendations: home with family and continued tx. If this is the last note, consider this the discharge summary. * Raudel Ferrara, PT - 08/14/2022 12:35 PM CDT Physical Therapy PT PROGRESS NOTE Abena Giron 82 y.o. 1940 Past Medical History: Diagnosis Date Adiposity obesity [...] a.fib: loop recorder implanted OTHER SURGICAL HISTORY 2016 Atrial Fibrillation: Cardiovascular Intervention (ablation) SKIN BIOPSY Patient Active Problem List Diagnosis Hypertension Osteoarthritis Hyperlipidemia Coronary artery disease involving [place] coronary artery of [place] heart Paroxysmal atrial fibrillation (CMS/HCC) (HCC) Chronic GERD Anxiety Abdominal aortic aneurysm (AAA) without rupture (HCC) B12 deficiency Sick sinus syndrome (CMS/HCC) (HCC) GENNY (obstructive sleep apnea) History of coronary artery stent placement Cardiac pacemaker in situ 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 They never give up. Patient motivated but reporting fatigue. MENTAL STATUS/ORIENTATION: Alert and oriented x4 PAIN: Pre-therapy pain level: 0/10 Pain location: - Pain intervention: - Post-therapy pain level/response to intervention: 0/10 OBJECTIVE PRECAUTIONS: fall, aspiration APPEARANCE/POSTURE: sitting in w/c in gym with daughter, alarm activated, no apparent distress. VITAL SIGNS: Post-activity BP: 83/59 MOBILITY DOCUMENTATION: Bed Mobility: supervision for sit to supine Transfers: CG assist for sit to/from stand with w/w, moderate cues for hand placement. Min assist intermittently for uncontrolled descent into chair. Cg assist for w/c to bed with w/w, cues for walker management. Ambulation: min assist for 30' with w/w weaving cones, cues for obstacle avoidance, rushes and getsanxious when she hits objects. Cues for walker management, favoring right side of walker and occasionally kicking walker with right leg. Stairs: CG assist for ascending 4 steps with unilateral handrail but min assist for descending 4 steps with bilateral handrails. R side neglect and difficulty keeping R hand on rail. Wheelchair management & propulsion: NT TREATMENT: 1) seated HEP 1x15: ankle pumps, LAQ w/ 2#, marching, hip IR/ER, ball squeeze, clamshell w/ green TB 2) cone weaving with walker to practice obstacle avoidance and attention to right side. Struggled staying centered in device. Appearance/Posture at end of treatment session: supine in bed with HOB elevated, alarm activated, room air, call light in reach, no apparent distress. RN given handoff. EDUCATION: PATIENT/FAMILY EDUCATION: HEP, gait, neglect s/p CVA, PT POC Response to Education: verbalizes understanding ASSESSMENT Activity tolerance/response to PT: Patient tolerated all activities well with moderate reports of fatigue. Daughter present to observe stair navigation and noted safety concerns with mobility. Barriers to learning: unchanged from AM Barriers to discharge: unchanged from AM Patient continues progressing toward previously set goals which remain appropriate at this time. PLAN Patient to be seen bid 5x/week to address previously established deficits and goals. * Lenka Perez, COMPOUND SPECIALIST - 08/14/2022 11:50 AM CDT Physical Therapy PT PROGRESS NOTE Abena Giron 82 y.o. 1940 Past Medical History: Diagnosis Date Adiposity obesity [...] Hyperlipidemia Hypertension Hypertension Myocardial infarction (CMS/HCC) (HCC) 2015 Sleep apnea Vertigo Past Surgical History: Procedure Laterality Date ABDOMINAL SURGERY CARDIAC PACEMAKER PLACEMENT CATARACT EXTRACTION W/ INTRAOCULAR LENS IMPLANT Bilateral CHOLECYSTECTOMY 1981 Cholecystectomy EYE SURGERY OTHER SURGICAL HISTORY Right 1980 partial oopherectomy OTHER SURGICAL HISTORY heart cath with stent 2013 [place] OTHER SURGICAL HISTORY 2016 a.fib: loop recorder implanted OTHER SURGICAL HISTORY 2016 Atrial Fibrillation: Cardiovascular Intervention (ablation) SKIN BIOPSY Patient Active Problem List Diagnosis Hypertension Osteoarthritis Hyperlipidemia Coronary artery disease involving [place] coronary artery of [place] heart Paroxysmal atrial fibrillation (CMS/HCC) (HCC) Chronic GERD Anxiety Abdominal aortic aneurysm (AAA) without rupture (HCC) B12 deficiency Sick sinus syndrome (CMS/HCC) (HCC) GENNY (obstructive sleep apnea) History of coronary artery stent placement Cardiac pacemaker in situ 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 VITAL SIGNS: Resting BP: 114/62, HR 58, O2 sats 99%. HR after ambulation 70, O2 sats 94% on RA MOBILITY DOCUMENTATION: Bed Mobility: n/a Transfers: sit to stand from stand with CG Assist with multiple verbal and tactile cues for hand placement and safety. Transfers recliner to wheelchair CG assist stand pivot transfer. Transfers wheelchair to and from commode with grab bar CG assist. Patient needing moderate assist for clothing to assist right side up and down. Ambulation: wheeled walker 80'x1 CG assist with max cues to attend to right side. Decreased kimberly, downward gaze, decreased heel strike and push off on right, decreased right step length, flexed posture. Stairs: n/a Wheelchair management & propulsion: n/a TREATMENT: Dynamic balance standing with left UE resting on table while using right UE to attempt to place pegs into peg board with right hand. Patient able to place 14 pegs in 10 minutes, Fair+ balance and CG/Min assist with multiple cues to correct posture. Appearance/Posture at end of treatment session: patient sitting in wheelchair, alarm in place, returned to room by recreational therapy technician EDUCATION: PATIENT/FAMILY EDUCATION: patient educated on gait, transfers, balance, and safety. Patient's daughter present and observed activities. Response to Education: needs reinforcement ASSESSMENT Activity tolerance/response to PT: patient completes all activities with rest breaks due to fatigue. Barriers to learning: Physical and Language Barriers to discharge: Impulsivity, Limited safety awareness, Decreased endurance, Upper extremity weakness, and Lower extremity weakness Patient continues progressing toward previously set goals which remain appropriate at this time. PLAN Patient to be seen bid 5x/week to address previously established deficits and goals. * Opal Mace MD - 08/14/2022 10:44 AM CDT INPATIENT REHABILITATION DAILY PROGRESS NOTE CHIEF COMPLAINT: CVA SUBJECTIVE: Had miralax this morning which she does not tolerate well. Very nauseated. Improved with prn zofran. Daughter present OBJECTIVE: VITALS: Vitals: 08/13/22 0725 08/13/22 0830 08/13/22 1824 08/14/22 0750 BP: (!) 73/40 136/60 129/60 114/57 BP Location: Right arm Left arm Right arm Patient Position: Sitting Lying Sitting Pulse: 69 70 70 75 Resp: 18 18 20 Temp: 36.4 ??C (97.5 ??F) 36.4 ??C (97.5 ??F) 36.4 ??C (97.5 ??F) TempSrc: Temporal Temporal Tympanic SpO2: 97% 98% 98% Weight: Height: PHYSICAL EXAM: General: no acute distress, in chair HEENT: normocephalic, trachea midline Heart: rrr Lungs: ctab GI: soft, nontender Neuro: alert, oriented, dysarthric LABS/RADIOLOGY/DIAGNOSTIC REVIEW Recent Labs Lab Units 08/13/22 0937 WBC K/cumm 8.9 HEMOGLOBIN g/dL 12.2 HEMATOCRIT % 38.4 PLATELETS K/cumm 335 Recent Labs Lab Units 08/13/22 0937 SODIUM mmol/L 139 POTASSIUM PLASMA mmol/L 4.0 CHLORIDE mmol/L 102 CO2 mmol/L 26 ANIONGAP mmol/L 11 GLUCOSE mg/dL 105 BUN SERUM mg/dL 23 CREATININE mg/dL 0.76 CALCIUM mg/dL 9.2 ALBUMIN g/dL 3.5 ALK PHOS Units/L 35* ALT Units/L 13 AST Units/L 28 BILIRUBIN TOTAL mg/dL 0.5 Recent Labs Lab Units 08/13/22 0937 08/11/22 2154 08/11/22 0547 08/09/229 08/08/22 22508/08/22 2139 GLUCOSE mg/dL 105 90 96 112 -- 119 POC GLUCOSE MONITOR mg/dL -- -- -- -- 124 -- OT Functional Mobility: 08/13 transfers: MIN/CGA OT Self Care: 08/13 bathing/toileting CGA, UB/LB dressing/footwear MIN, oral hygiene/grooming Set-up SALES HUNTER Cognition: oriented x3 SALES HUNTER Communication: word finding deficits and dysarthria SALES HUNTER Swallowing: assessed at . Patient with oral dysphagia/puree diet/thin liquids. PT Functional Mobility: 08/13/22: Bed Mobility: CG assist for sit to/from supine, increased time needed to sit up and cues to not hold breath. Supervision with verbal cues for technique for rolling. Transfers: CG assist for sit to/from stand with w/w and maximal cues for hand placement. CG/min assist for sit to/from stand with SBQC, cues for upright posture. Ambulation: CG assist for 50' with w/w,cues for R hand to stay on walker, fast/impulsive kimberly, w/w too far in front and poor obstacle avoidance. Stairs: min assist for 4 steps with bilateral handrail, moderate cues for LE sequencing. Increased instability during descent with associated reports of weakness. No results found. MEDICATIONS: Current Facility-Administered Medications: acetaminophen (TYLENOL) tablet 650 mg, 650 mg, oral, Q6H PRN, Opal Mace MD apixaban (ELIQUIS) tablet 5 mg, 5 mg, oral, Q12H NAVEED, Opal Mace MD, 5 mg at 08/14/22 0829 aspirin chewable tablet 81 mg, 81 mg, oral, Daily, Opal Mace MD, 81 mg at 08/14/22 0830 calcium carbonate (TUMS) chewable tablet 1,000 mg, 400 mg of elemental calcium, oral, TID PRN, Opal Mace MD dapagliflozin (FARXIGA) tablet 10 mg, 10 mg, oral, Daily, Opal Mace MD, 10 mg at08/14/22 0829 furosemide (LASIX) tablet 40 mg, 40 mg, oral, Daily, Opal Mace MD, 40 mg at 08/14/22 0829 [Held by Provider] losartan (COZAAR) tablet 12.5 mg, 12.5 mg, oral, Daily, Opal Mace MD, 12.5 mg at 08/13/22 0821 metoprolol XL (TOPROL-XL) extended release tablet 12.5 mg, 12.5 mg, oral, Daily, Opal Mace MD, 12.5 mg at 08/14/22 0828 ondansetron ODT (ZOFRAN-ODT) disintegrating tablet 4 mg, 4 mg, oral, TID PRN, Opal Mace MD, 4 mg at 08/14/22 1000 ramelteon (ROZEREM) tablet 8 mg, 8 mg, oral, Nightly PRN, Opal Mace MD, 8 mg at 08/13/222025 rosuvastatin (CRESTOR) tablet 10 mg, 10 mg, oral, Nightly, Opal Mace MD, 10 mg at 08/13/222024 senna-docusate (PERICOLACE) 8.6-50 mg per tablet 1 tablet, 1 tablet, oral, BID PRN, Opal Mace MD simethicone (MYLICON) chewable tablet 80 mg, 80 mg, oral, TID PRN, Opal Haywood MD [Held by Provider] spironolactone (ALDACTONE) split tablet 12.5 mg, 12.5 mg, oral, Daily, Opal Mace MD, 12.5 mg at 08/13/22 0822 traZODone (DESYREL) tablet 25 mg, 25 mg, oral, Nightly PRN, Opal Mace MD ASSESSMENT/PLAN: MEDICAL PLAN OF CARE: 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, TNK Dysphagia Right hemiparesis Dysarthria Impaired mobility, ADLs, transfers, gait, balance, strength, endurance, speech, cognition, swallow Continue PT, OT Continue SALES HUNTER Continue Aspirin 81mg, Eliquis 5mg bid, rosuvastatin 10mg qhs HLD: continue rosuvastatin 10mg qhs HTN Afib s/p AV node ablation Sick sinus syndrome s/p pacemaker AAA HFrEF ER 20% CAD s/p stent 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 08/14: tristan ingram, family to bring in patient's home medicine Nausea: Continue Zofran prn, Tums prn Insomnia: Continue trazodone 25mg qhs prn Diet: puree/thin, NO GRAVY DVT ppx: eliquis Precautions: Fall, aspiration Weightbearing status: Full Code: LIMITED - No CPR Care discussed with Nursing, OT Case conference today, refer to note for further information REHAB PLAN OF CARE: Patient's expected intensity and duration of participation in the interdisciplinary rehabilitation program and disciplines that comprise this team: Therapies required to achieve goals:The patient will benefit from integrated coordination of care from the following interdisciplinary services: Medical Supervision, 24 hours Rehabilitation Nursing, Physical Therapy, Occupational Therapy, Case Management; Speech Therapy; Social Work Frequency and duration of therapies expect to be:Expected intensity and frequency of participation in the interdisciplinary rehab program is: 3 hours of therapy 5 days per week for the duration of length of stay Expected intensity and frequency of Physical Therapy (PT): 1.5 hours per day over 5-7 days for the duration of length of stay Expected intensity and frequency of Occupational Therapy (OT): 1.5 hours per day over 5-7 days per week for the duration of length of stay Expected intensity and frequency of Speech Therapy (SALES HUNTER): 1 hour per day per day over 5-7 days per week for the duration of length of stay FUNCTIONAL CHANGE: Car transfer - incidental touching DISCHARGE PLANNING: Expected Discharge Date: TBD Equipment: TBD Family Training: SW to set up Education: Follow up Appointments: PCP 1-2weeks Neurology 1-2 weeks Cardiology 1-2 weeks Opal Mace MD Physical Medicine and Rehabilitation I can be reached from 7am-7pm through phone or perfect serve. Hospitalist front desk receptionist from 7pm-7am * Azalea Martinez - 08/14/2022 9:48 AM CDT Occupational Therapy NOTE TYPE: OT TREATMENT (CM[facility] BEDSIDE SESSION) Patient's Name: Abena Giron Age / Sex: 82 y.o. 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) Ischemic stroke (HCC) Acute CVA (cerebrovascular accident) (HCC) Past Medical History: Diagnosis Date Adiposity obesity [...] Hyperlipidemia Hyperlipidemia Hypertension Hypertension Myocardial infarction (CMS/HCC) (FORM[facility]LY [facility]) 2014 Sleep apnea Vertigo Past Surgical History: Procedure Laterality Date ABDOMINAL SURGERY CARDIAC PACEMAKER PLACEMENT CATARACT EXTRACTION W/ INTRAOCULAR LENS IMPLANT Bilateral CHOLECYSTECTOMY 1981 Cholecystectomy EYE SURGERY OTHER SURGICAL HISTORY Right 1980 partial oopherectomy OTHER SURGICAL HISTORY heart cath with stent 2013 [place]/[facility] OTHER SURGICAL HISTORY 2016 a.fib: loop recorder implanted OTHER SURGICAL HISTORY 2016 Atrial Fibrillation: Cardiovascular Intervention (ablation) SKIN BIOPSY Precautions (Including Weight-Bearing): Fall risk, Bed / chair alarm, and Aspiration precautions SUBJECTIVE: I felt like I was going to pass out Pt. Commented about feeling sick at beginning of session Therapy Pain: Pre-therapy pain level: 0 / 10 Pain location: No pain - Location N/A Pain intervention(s): No pain - Intervention N/A Post-therapy pain level: 0 / 10 Pain scale used: 0-10 SCALE OBJECTIVE: APPEARANCE: Presentation upon OT arrival: Patient Sitting in manual wheelchair at bedside Presentation upon OT departure: PATIENT Sitting in bedside recliner Bed / chair alarm in place and activated upon OT departure: None Observed Call light within arms reach of patient at end of session: Yes Completed patient handoff and notified Physical Therapist / Physical Therapist Ultrasound Tester, name: Bria, of patient's location and functional status upon completion of session. VITAL SIGNS: Heart rate at rest: 70 BPM Heart rate with activity: 70 BPM Blood pressure at rest: 131/62 Blood pressure with activity: 121/53 COGNITIVE / PERCEPTUAL: Pt. Started session somewhat alert and complaining of severe nausea. At end of session Pt. Alert and oriented, nausea abated, and able to engage in session. SELF CARE: Shower / Bathe Self Type of bathing: SPONGEBATHING Location of shower / bathe self: sitting in bedside recliner and Standing at bedside recliner Tasks completed: ALL COMPONENTS Components that required assistance (if applicable): NONE Overall assist level: INCIDENTAL TOUCHING ASSISTANCE Adaptive equipment (if applicable): no assistive device Additional documentation: CGA Oral Hygiene Pt. Reported completing task before start of session, denied difficulties. Other Grooming Tasks Location of other grooming tasks: sitting in bedside recliner Tasks completed: COMBING HAIR Overall assist level: PARTIAL / MODERATE ASSISTANCE: LESS THAN HALF (1% - 49%) Additional documentation: MIN A for supporting and guiding RUE to head, MIN A overall UE Dressing Location of UE dressing: sitting in bedside recliner Tasks completed: Pullover shirt Overall assist level: PARTIAL / MODERATE ASSISTANCE: LESS THAN HALF (1% - 49%) Additional documentation: MIN A for pulling shirt over R shoulder LE Dressing (Underwear / Pants) Location of LE dressing (Underwear / Pants): sitting in bedside recliner, standing at bedside recliner Tasks completed: Underwear and Elastic waist pants Overall assist level: PARTIAL / MODERATE ASSISTANCE: LESS THAN HALF (1% - 49%) Additional documentation: MIN A to pull up pants, daughter/caregiver provided assist. Putting On / Taking Off Footwear Location of putting on / taking off footwear: sitting in bedside recliner Tasks completed: Slip-on shoe(s) and Footie(s) Overall assist level: SUBSTANTIAL / MAXIMAL ASSISTANCE: MORE THAN HALF (50% - 99%) Additional documentation: MIN A for doffing footies, MIN A for donning R shoe, MOD A overall MOBILITY: Transfers: Sit to/from stand-->CGA Stand pivot from w/c to bedside recliner-->MIN HEARING / SPEECH / VISION: Expression of ideas and wants Overall assist level: SOME DIFFICULTY Understanding verbal and non-verbal content Overall assist level: UNDERSTANDS Caregiver present (yes / no): Yes: Chelle Tavera Education & training provided: Role of OT, OT plan of care, ADL training, Compensatory ADL strategies, Functional transfer training, Energy conservation education, and Family / Caregiver training ASSESSMENT: Activity tolerance / response to OT: GOOD PARTICIPATION, GOOD MOTIVATION, RECEPTIVE TO EDUCATION / TRAINING, FAIR TOLERANCE, and INCREASED TIME FOR TASK COMPLETION SECONDARY TO Nausea Progress towards goals: Please refer to Care Plan from this date for progress towards individual goals. PLAN: Therapy Plan: Please refer to most recent Inpatient Rehabilitation Team Conference note for discharge plan, including location, recommended level of supervision, and arrangements. Frequency of therapy: BID SESSIONS 5 DAYS / WEEK TO ADDRESS PREVIOUSLY ESTABLISHED DEFICITS AND GOALS Azalea Martinez 08/14/22 Cosigned by Hiral Parks OT at 08/14/2022 11:37 AM CDT * Bell Moffett, SALES HUNTER - 08/14/2022 9:18 AM CDT Speech Language/Pathology SPEECH LANGUAGE PATHOLOGY PROGRESS NOTE Patient's Name: Abena Giron : 1940 Age: 82 y.o. Time In: 825 Time Out: 855 Patient Active Problem List Diagnosis Hypertension Osteoarthritis Hyperlipidemia Coronary artery disease involving [place] coronary artery of [place] heart Paroxysmal atrial fibrillation (CMS/HCC) (HCC) Chronic GERD Anxiety Abdominal aortic aneurysm (AAA) without rupture (HCC) B12 deficiency Sick sinus syndrome (CMS/HCC) (HCC) GENNY (obstructive sleep apnea) History of coronary artery stent placement Cardiac pacemaker in situ 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) Ischemic stroke (HCC) Acute CVA (cerebrovascular accident) (HCC) Past Medical History: Diagnosis Date Adiposity obesity [...] Hyperlipidemia Hypertension Hypertension Myocardial infarction (CMS/HCC) (HCC) 2015 Sleep apnea Vertigo Past Surgical History: Procedure Laterality Date ABDOMINAL SURGERY CARDIAC PACEMAKER PLACEMENT CATARACT EXTRACTION W/ INTRAOCULAR LENS IMPLANT Bilateral CHOLECYSTECTOMY 1981 Cholecystectomy EYE SURGERY OTHER SURGICAL HISTORY Right 1980 partial oopherectomy OTHER SURGICAL HISTORY heart cath with stent 2014 [place]/[facility] OTHER SURGICAL HISTORY 2016 a.fib: loop recorder implanted OTHER SURGICAL HISTORY 2016 Atrial Fibrillation: Cardiovascular Intervention (ablation) SKIN BIOPSY SUBJECTIVE: I love my new nurse,Ashleigh. MENTAL STATUS: alert,oriented,in wheelchair. PAIN: Pre Therapy Pain Level:0 Pain Location: Pain Intervention: Post Therapy Pain Level/Response to Intervention:0 OBJECTIVE PRECAUTIONS: fall,aspiration SWALLOWING: tolerating puree diet/thin liquids COGNITION: intact COMMUNICATION: dysarthria and word finding deficits TREATMENT ACTIVITIES: oral motor exercises x10;speech intelligibility at sentence level: 75% intelligibile;word finding much improved at phrase level EDUCATION: PATIENT/FAMILY EDUCATION: discussed progress and team conference today. Response to Education: verbalized understanding ASSESSMENT Activity Tolerance/Response to S.T.: good Barriers to learning: communication,anxiety Current status: moderate dysarthria and word finding deficits,moderate oral dysphagia. Progress toward goals: Patient continues to progress toward previously set goals which remain appropriate at this time. PLAN Multi-Disciplinary Problems (from Speech Therapy) Active Problems Problem: Swallowing Start Date: 08/12/22 Goal Start Date Expected End Date End Date LTG - Patient will tolerate the least restrictive diet consistency to allow for safe consumption ofdaily meals 08/12/22 08/19/22 -- Problem: Communication/Motor Speech Start Date: 08/12/22 Goal Start Date Expected End Date End Date STG - Patient will participate in oral-motor exercises to improve strength 08/12/22 08/19/22 -- Goal Start Date Expected End Date End Date STG - Patient will identify and utilize word retrieval Intervention in structured tasks 08/12/22 08/19/22 -- Goal Start Date Expected End Date End Date STG - Patient will use speech intelligibility Intervention at conversational level 08/12/22 08/19/22 -- Frequency of Treatment: bid 5xweekly Recommendations: home with assist. If this is the last note, consider this the discharge summary. * Azalea Martinez - 08/13/2022 4:17 PM CDT Occupational Therapy NOTE / SESSION TYPE: OT ROUNDS UPDATE PATIENT'S NAME: Abena Giron AGE / SEX: 82 y.o. / female ROOM: [place] [id number] : 1940 DATE: 08/13/22 Multi-Disciplinary Problems (from Occupational Therapy) Active Problems Problem: OT Misc Start Date: 08/13/22 Goal Start Date Expected End Date End Date OT LTG - Misc 1 08/13/22 08/26/22 -- Goal Details: Pt. Will complete BADL routine including simulated tub/shower bathing, grooming, oralhygiene, UB/LB dressing, and footwear with MOD I one time. Goal Start Date Expected End Date End Date [facility] 08/13/22 08/26/22 -- Goal Details: Pt. Will complete toileting routine and toilet transfer with MOD I one time Goal Start Date Expected End Date End Date [facility] 08/13/22 08/26/22 -- Goal Details: Pt. Will complete functional transfers including car, tub/shower, and toilet with EV one time Goal Start Date Expected End Date End Date [facility] 08/13/22 08/26/22 -- Goal Details: Pt. Will complete UE GMC/FMC, proprioception, and strengthening HEP with MOD I one time Goal Start Date Expected End Date End Date [facility] 08/13/22 08/26/22 -- Goal Details: Pt. Will complete medication/bill management activity with 100% accuracy with MOD I one time Goal Start Date Expected End Date End Date [facility] 08/13/22 08/26/22 -- Goal Details: Pt. Will complete basic IADL tasks such as laundry, light meal prep, and light housekeeping with MOD I one time. Goal Start Date Expected End Date End Date [facility] 08/13/22 08/26/22 -- Goal Details: Pt. Will complete functional/meaningful activity in standing for 10+ minutes with EV one time Goal Start Date Expected End Date End Date [facility] 08/13/22 08/26/22 -- Goal Details: Pt. Will complete meaningful gardening task with MOD I one time Goal Start Date Expected End Date End Date [facility] 08/13/22 08/26/22 -- Goal Details: Pt.'s family will be present for one OT session and be aware of discharge needs/plans. CURRENT FUNCTIONAL STATUS: Transfers: MIN/CGA Bathing: CGA Oral Hygiene: Set-up Grooming: Set-up UB dressing: MIN LB dressing: MIN Footwear: MIN Toileting: CGA Pt. Is new to [facility], goals not yet addressed. Pt. Is motivated to participate but worries she has lost part of herself since her stroke. R sided weakness, coordination, and lack of proprioception limit ADL/IADL completion. Mild expressive aphasia noted, speech is more clear when speaking slowly. STRENGTHS: MOTIVATED, GOOD FAMILY / SOCIAL SUPPORT, ABLE TO TOLERATE INPATIENT REHAB, GOOD PREMORBID FUNCTIONAL STATUS, and LIVING IN THE COMMUNITY PREMORBIDLY BARRIERS: DECREASED ACTIVITY TOLERANCE, DECREASED UE ROM / STRENGTH / COORDINATION, DECREASED MOBILITY, DECREASED BALANCE, and LANGUAGE IMPAIRMENT OVERCOMING BARRIERS: ADL training, Compensatory ADL strategies, Balance activities, Functional transfer training, UE home exercise program education, Family training as appropriate, IADL training, and Energy conservation techniques EQUIPMENT RECOMMENDED FOR DISCHARGE: TBD Azalea Martinez 08/13/22 4:17 PM . Cosigned by Hiral Parks, OT at 08/13/2022 4:40 PM CDT * Lenka Perez, COMPOUND SPECIALIST - 08/13/2022 2:32 PM CDT Physical Therapy PT PROGRESS NOTE Abena Giron 82 y.o. 1940 Past Medical History: Diagnosis Date Adiposity obesity [...] Hyperlipidemia Hypertension Hypertension Myocardial infarction (CMS/HCC) (HCC) 2015 Sleep apnea Vertigo Past Surgical History: Procedure Laterality Date ABDOMINAL SURGERY CARDIAC PACEMAKER PLACEMENT CATARACT EXTRACTION W/ INTRAOCULAR LENS IMPLANT Bilateral CHOLECYSTECTOMY 1981 Cholecystectomy EYE SURGERY OTHER SURGICAL HISTORY Right 1980 partial oopherectomy OTHER SURGICAL HISTORY heart cath with stent 2013 [place]/[facility] OTHER SURGICAL HISTORY 2016 a.fib: loop recorder implanted OTHER SURGICAL HISTORY 2016 Atrial Fibrillation: Cardiovascular Intervention (ablation) SKIN BIOPSY Patient Active Problem List Diagnosis Hypertension Osteoarthritis Hyperlipidemia Coronary artery disease involving [place] coronary artery of [place] heart Paroxysmal atrial fibrillation (CMS/HCC) (HCC) Chronic GERD Anxiety Abdominal aortic aneurysm (AAA) without rupture (HCC) B12 deficiency Sick sinus syndrome (CMS/HCC) ([facility]) GENNY (obstructive sleep apnea) History of coronary artery stent placement Cardiac pacemaker in situ 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 Nursing notified of patient's concerns with night shifting nursing. MENTAL STATUS/ORIENTATION: Alert and oriented x 3, aphasic and at times with word finding difficulties. PAIN: Pre-therapy pain level: 0/10 Pain location: n/a Pain intervention: none needed at this time Post-therapy pain level/response to intervention: 0/10 OBJECTIVE PRECAUTIONS: fall risk, aspiration precautions APPEARANCE/POSTURE: patient sitting in wheelchair, alarm in place, agreeable to therapy. MOBILITY DOCUMENTATION: Sit to stand with CG assist, stand to sit with CG/Min assist to control descent. Transfers wheelchair to bed with min assist. Sit to supine with min assist for safety due to patient just catching edge of bed and goes straight to supine. TREATMENT: Franks Balance Scale 1. Sitting to Standing: Needs minimal aid to stand or stabilize (stood with supervision assist) 2. Standing Unsupported: Able to stand 2 minutes with supervision 3. Sitting with Back Unsupported but Feet Supported on Floor or on a Stool: Able to sit safely and securely for 2 minutes 4. Standing to Sitting: Controls descent by using hands 5. Transfers: Able to transfer with verbal cueing and/or supervision 6. Standing Unsupported with Eyes Closed: Able to stand 10 seconds with supervision 7. Standing Unsupported with Feet Together: Needs help to attain position but able to stand 15 seconds feet together (first 30 seconds with supervision assist, last 30 seconds with CG assist.) 8. Reach Forward with Outstretched Arm While Standing: Reaches forward but needs supervision 9. Jewelry Designer Object from Floor from a Standing Position: Unable to try/needs assist to keep from losing balance or falling (Able to pickle cutter but needs CG assist for safety) 10. Turning to Look Behind Over Left and Right Shoulders While Standing: Needs supervision when turning 11. Turn 360 Degrees: Needs assistance while turning 12. Place Alternate Foot on Step or Stool While Standing Unsupported: Needs assistance to keep fromfalling/unable to try 13. Standing Unsupported One Foot in Front: Loses balance while stepping or standing 14. Standing on One Leg: Unable to try needs assist to prevent fall Franks Balance Score: 19 Appearance/Posture at end of treatment session: patient supine in bed, alarm in place, call button in reach. Patient's daughter at bedside. EDUCATION: PATIENT/FAMILY EDUCATION: patient educated on balance, transfers, and safety Response to Education: needs reinforcement ASSESSMENT Activity tolerance/response to PT: patient demonstrates increased fatigue with all activities. RN James notified of patient's concerns with production supervisor off shift nursing Barriers to learning: Physical and Language Barriers to discharge: Impulsivity, Limited safety awareness, Communication deficit, Decreased endurance, Upper extremity weakness, and Lower extremity weakness Patient continues progressing toward previously set goals which remain appropriate at this time. PLAN Patient to be seen bid 5x/week to address previously established deficits and goals. * Bell Moffett SALES HUNTER - 08/13/2022 1:23 PM CDT Speech Language/Pathology SPEECH LANGUAGE PATHOLOGY PROGRESS NOTE Patient's Name: Abena Giron : 1940 Age: 82 y.o. 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) Ischemic stroke (HCC) Acute CVA (cerebrovascular accident) (HCC) Past Medical History: Diagnosis Date Adiposity obesity [...] Hyperlipidemia Hypertension Hypertension Myocardial infarction (CMS/HCC) (HCC) 2015 Sleep apnea Vertigo Past Surgical History: Procedure Laterality Date ABDOMINAL SURGERY CARDIAC PACEMAKER PLACEMENT CATARACT EXTRACTION W/ INTRAOCULAR LENS IMPLANT Bilateral CHOLECYSTECTOMY 1981 Cholecystectomy EYE SURGERY OTHER SURGICAL HISTORY Right 1980 partial oopherectomy OTHER SURGICAL HISTORY heart cath with stent 2013 [place]/[facility] OTHER SURGICAL HISTORY 2016 a.fib: loop recorder implanted OTHER SURGICAL HISTORY 2016 Atrial Fibrillation: Cardiovascular Intervention (ablation) SKIN BIOPSY SUBJECTIVE MENTAL STATUS: alert PAIN: Pre Therapy Pain Level:0 Pain Location: Pain Intervention: Post Therapy Pain Level/Response to Intervention:0 OBJECTIVE PRECAUTIONS: fall SWALLOWING: pureed/thin based on SALES HUNTER eval at [place] COGNITION: oriented,forgetful COMMUNICATION: dysarthria and word finding deficits TREATMENT ACTIVITIES: oral exercises, dysarthria drill, verbal expression tasks EDUCATION: PATIENT/FAMILY EDUCATION: discussed tx schedule Response to Education: in agreement ASSESSMENT Activity Tolerance/Response to S.T.: good Barriers to learning: communication Current status: moderate dysarthria and mild word finding deficits Progress toward goals: Patient continues to progress toward previously set goals which remain appropriate at this time. PLAN Multi-Disciplinary Problems (from Speech Therapy) Active Problems Problem: Swallowing Start Date: 08/12/22 Goal Start Date Expected End Date End Date LTG - Patient will tolerate the least restrictive diet consistency to allow for safe consumption ofdaily meals 08/12/22 08/19/22 -- Problem: Communication/Motor Speech Start Date: 08/12/22 Goal Start Date Expected End Date End Date STG - Patient will participate in oral-motor exercises to improve strength 08/12/22 08/19/22 -- Goal Start Date Expected End Date End Date STG - Patient will identify and utilize word retrieval Intervention in structured tasks 08/12/22 08/19/22 -- Goal Start Date Expected End Date End Date STG - Patient will use speech intelligibility Intervention at conversational level 08/12/22 08/19/22 -- Frequency of Treatment: bid 5x weekly Recommendations: home with assist If this is the last note, consider this the discharge summary. * Janette Lombardi - 08/13/2022 1:00 PM CDT Nutrition Assessment Reason for Assessment: Initial Nutrition Assessment and Consult/Referral Encounter Date: 08/13/22 1:00 PM Nutrition Assessment and Plan: Patient is a 82 y.o. female. Admit Dx: Acute CVA (cerebrovascular accident) (HCC) [I63.9]. Admittedon 08/12/2022, current LOS is 1 days. Consult received for new pt admission to rehab. Chart reviewed. 82yoF [facility] forCVA. Discharged 08/12 to IP rehab. PMH includes HTN, HLD, CAD, GERD, anxiety, GENNY. Attempted to callpt's room x2, with other provider. Puree thin liquid diet ordered per SALES HUNTER. Per RN pt does not like gravy with meals-diet order noted to be modified. 75% of lunch documented today. Admission weight 08/12 is 156 lbs. Pt weighed 155 lbs 08/28/21 and 153 lbs 07/14/22. No edema or pressure injuries documented. Last BM 08/12. Will continue to monitor. Should PO intakes decreased consider the addition of oral nutrition supplements. RD available if needed. Current diet order: Adult Diet Modified Consistency; Pureed Pt intake is adequate. PO intakes: 75% x1 Nutrition Diagnosis 1: Swallowing difficulty Related to: Other (comment) (CVA) Evidenced by: Other (comment) (modified diet consistency per SALES HUNTER recommendation) Interventions: Assess for nutrition changes, Initial assessment, Medical food supplement Monitoring and Evaluation: Appetite, Discharge plans, Food preferences, Labs, Plan of care, PO intake, Swallow function, Supplement tolerance, Weight changes Goals: Oral intake to meet 75% estimated nutritional needs by next assessment, Adequate nutrition to meet estimated needs by next assessment, Tolerance of medical food supplement by next assessment Estimated needs: Total Kcal/kg Estimated Needs : 1780 based on Kcal/k. Type of Weight Used for Estimated Kcals:Current Total Protein Estimated Needs (gm): 71.2 Protein Needs Based on g/k.0 Type of Weight Used for Estimated Protein : Current. Estimated Fluid Needs Type of Weight Used for Estimated Fluid Needs: Current Fluid Needs Based on : 1 ml/kcal Total Fluid Estimated Needs: 1780 Objective Anthropometrics Weight: 71.2 kg (156 lb 15.5 oz) Admission Weight : 71.2 kg Weight Change: -0.01 kg (-0.03 lbs) IBW/kg (Calculated) : 47.6 kg Height: 154.9 cm (5' 0.98 ) Weight in (lb) to have BMI = 25: 132 BMI (Calculated): 29.7 BMI Classification: BMI 25.0 - 29.9 Overweight 3 Day I/O Summary No intake/output data recorded. Temp: 36.4 ??C (97.5 ??F) Past Medical History: Diagnosis Date Adiposity obesity [...] infarction (CMS/HCC) (HCC) 2014 Sleep apnea Vertigo Medications and Lab Review: Scheduled Meds: apixaban, 5 mg, oral, Q12H NAVEED aspirin, 81 mg, oral, Daily dapagliflozin, 10 mg, oral, Daily furosemide, 40 mg, oral, Daily [Held by Provider] losartan, 12.5 mg, oral, Daily metoprolol XL, 12.5 mg, oral, Daily polyethylene glycol, 17 g, oral, Daily rosuvastatin, 10 mg, oral, Nightly [Held by Provider] spironolactone, 12.5 mg, oral, Daily Continuous Infusions: Sodium Date Value Ref Range Status 08/13/2022 139 135 - 145 mmol/L Final Potassium, pl Date Value Ref Range Status 08/13/2022 4.0 3.3 - 4.9 mmol/L Final BUN Date Value Ref Range Status 08/13/2022 23 8 - 25 mg/dL Final Creatinine Date Value Ref Range Status 08/13/2022 0.76 0.60 - 1.10 mg/dL Final Albumin Date Value Ref Range Status 08/13/2022 3.5 3.5 - 5.0 g/dL Final Magnesium Date Value Ref Range Status 08/11/2022 2.2 1.4 - 2.5 mg/dL Final Calcium Date Value Ref Range Status 08/13/2022 9.2 8.5 - 10.3 mg/dL Final Lab Results Component Value Date HGBA1C 6.0 (H) 08/03/2022 Lab Results Component Value Date GLUCOSE 105 08/13/2022 Nursing Assessment: Last BM Date: 08/12/22 Sai Scale Score: 19 Diet Instructions Modified consistency diet as recommended per SALES HUNTER Call [phone] to speak with a dietitian about any diet related concerns. Nutrition Follow-Up : 08/16/22 Janette Lombardi MS, RD, LD * Azalea Martinez - 08/13/2022 12:33 PM CDT Occupational Therapy NOTE / SESSION TYPE: OT EVALUATION (COMPLETION) PATIENT'S NAME: Abena Giron AGE / SEX: 82 y.o. 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) Ischemic stroke (HCC) Acute CVA (cerebrovascular accident) (HCC) Past Medical History: Diagnosis Date Adiposity obesity [...] Hyperlipidemia Hypertension Hypertension Myocardial infarction (CMS/HCC) (HCC) 2015 Sleep apnea Vertigo Past Surgical History: Procedure Laterality Date ABDOMINAL SURGERY CARDIAC PACEMAKER PLACEMENT CATARACT EXTRACTION W/ INTRAOCULAR LENS IMPLANT Bilateral CHOLECYSTECTOMY 1981 Cholecystectomy EYE SURGERY OTHER SURGICAL HISTORY Right 1980 partial oopherectomy OTHER SURGICAL HISTORY heart cath with stent 2013 [place]/[facility] OTHER SURGICAL HISTORY 2016 a.fib: loop recorder implanted OTHER SURGICAL HISTORY 2016 Atrial Fibrillation: Cardiovascular Intervention (ablation) SKIN BIOPSY PRECAUTIONS (INCLUDING WEIGHT-BEARING): Fall risk and Bed / chair alarm SUBJECTIVE: I'm afraid I've lost part of myself THERAPY PAIN: PRE-THERAPY PAIN LEVEL: 0 /10 PAIN LOCATION: No pain - Location N/A PAIN INTERVENTION(S): No pain - Intervention N/A POST-THERAPY PAIN LEVEL: 0 /10 PAIN SCALE USED: 0-10 SCALE OBJECTIVE: APPEARANCE: PRESENTATION UPON OT ARRIVAL: PATIENT Supine PRESENTATION UPON OT DEPARTURE: PATIENT Sitting in manual wheelchair with staff assistance BED / CHAIR ALARM IN PLACE AND ACTIVATED UPON OT DEPARTURE: Yes CALL LIGHT WITHIN ARMS REACH OF PATIENT AT END OF SESSION: No - due to patient taken to physical therapy gym COMPLETED PATIENT HANDOFF AND NOTIFIED Physical Therapist / Physical Therapist Ultrasound Tester, NAME: Bria, OF PATIENT'S LOCATION AND FUNCTIONAL STATUS UPON COMPLETION OF SESSION COGNITIVE / PERCEPTUAL: Pt. Alert and participatory (Short Blessed Test) Answer Max Error Error Score Weight Sub-Score 1. What year is it now? 2022 1 0 4 0 2. What month is it now? Repeat this phrase after me and remember it. Jason Meléndez [address] [place] [address]. Number of trialto learning 1 max 3 July 1 0 3 0 3. About what time is it without looking at your watch (within 1 hour?) Response: 1430 Actual Time: 1406 1 0 3 0 4. Count backwards from 20 to 1. Jackson correctly sequenced #'s []20 []19 []18 [] 17 []16 []15 [] 14 []13 []12 [x]11 [] 10 []9 []8 [] 7 [] 6 []5 []4 []3 []2 []1 2 1 2 2 5. Say the months of the year in reverse. [] D [] N []O [] S [] A []JL []JU []MY []A []M [x]F [] J 2 1 2 2 6. Repeat the name and address I asked you to remember. Jason Meléndez [address] [place] [address]. [] Jason [] [place] [] [][facility] []Cammal 5 0 2 0 A weighted error score of 9 or greater indicates a need for further assessment. Total Weighted Error Score = 4 (a) Scoring 0 = No errors, 1 = 1 error, 2 = 2 or more errors, (b) An answer of either [facility] or [employer] is acceptable. BIMS: NOT COMPLETED - SPEECH THERAPY TO ADDRESS HEALTH LITERACY: NOT COMPLETED - SPEECH THERAPY TO ADDRESS CAM (Signs and Symptoms of Delirium): NOT COMPLETED - SPEECH THERAPY TO ADDRESS UE ROM / STRENGTH / COORDINATION: (A)ROM - RIGHT: WFL STRENGTH - RIGHT: 4/5 (A)ROM - LEFT: WFL STRENGTH - LEFT: 4+/5 HAND DOMINANCE: Right MACHINE BINDING FOLDER STRENGTH (RIGHT): TRIAL 1: 16 TRIAL 2: 14 TRIAL 3: 15 AVERAGE: 15 POUND(S) MACHINE BINDING FOLDER STRENGTH (LEFT): TRIAL 1: 39 TRIAL 2: 43 TRIAL 3: 41 AVERAGE: 41 POUND(S) LATERAL PINCH (RIGHT): TRIAL 1: 9 TRIAL 2: 9 TRIAL 3: 7 AVERAGE: 8.3 POUND(S) LATERAL PINCH (LEFT): TRIAL 1: 11 TRIAL 2: 10 TRIAL 3: 10 AVERAGE: 10.3 POUND(S) 3-JAW PINCH (RIGHT): TRIAL 1: 4 TRIAL 2: 6 TRIAL 3: 4 AVERAGE: 4.67 POUND(S) 3-JAW PINCH (LEFT): TRIAL 1: 10 TRIAL 2: 10 TRIAL 3: 9 AVERAGE: 9.67 POUND(S) 9-HOLE PEG TEST (RIGHT): Unable to complete due to deficits 9-HOLE PEG TEST (LEFT): 30.4 SECOND(S) PROPRIOCEPTION: Mild impairment w/ RUE MOBILITY / TRANSFERS: TOILET TRANSFER LOCATION: STANDARD TOILET OVERALL ASSIST LEVEL: INCIDENTAL TOUCHING ASSISTANCE DEVICE: GRAB BARS ADDITIONAL DOCUMENTATION: [facility] CAR TRANSFER LOCATION: CAR SIMULATOR SET AT HEIGHT OF 16 INCHES PER PATIENT'S HOME VEHICLE OVERALL ASSIST LEVEL: INCIDENTAL TOUCHING ASSISTANCE DEVICE: WHEELED WALKER ADDITIONAL DOCUMENTATION: [facility] TRANSFERS: Supine--log roll to seated EOB-->CGA Seated EOB--stand pivot--sitting in w/c-->CGA CAREGIVER PRESENT (YES / NO): Yes: Daughter, Lucy EDUCATION & TRAINING PROVIDED: Role of OT, OT plan of care, Bed mobility training, Functional transfer training, and Family / Caregiver training ASSESSMENT: ACTIVITY TOLERANCE / RESPONSE TO OT: GOOD PARTICIPATION, GOOD MOTIVATION, RECEPTIVE TO EDUCATION / TRAINING, and FAIR TOLERANCE PLAN: THERAPY PLAN: PLEASE REFER TO INITIATION OF OT EVALUATION COMPLETED EARLIER THIS DATE FOR THERAPY PLAN, INCLUDINGFREQUENCY OF THERAPY, RECOMMENDED DISCHARGE LOCATION, RECOMMENDED LEVEL OF SUPERVISION AND ARRANGEMENTS DSP ENGINEER GOALS: PLEASE REFER TO INITIATION OF OT EVALUATION COMPLETED EARLIER THIS DATE FOR DSP ENGINEER GOALS Azalea Martinez 08/13/22 Cosigned by Hiral Parks, OT at 08/13/2022 4:40 PM CDT * Raudel Ferrara, PT - 08/13/2022 11:00 AM CDT Physical Therapy INITIAL EVALUATION PATIENT'S NAME:Abena Giron :1940 AGE:82 y.o. TIME IN:1107 TIME OUT:1154 CURRENT DIAGNOSIS AND HOSPITAL COURSE: Admitted to [facility] for rehabilitation of CVA. Presented to [facility] on 08/03/22 with right sided hemiparesis, right facial weakness and became mute. Initial NIH of 23 (mute, gaze palsy, right UE/LE hemiparesis, neglect, facial weakness). Head CT showed large hyperdense MCA. Head/Neck CT showed acute L MCA occlusion of M1 segment. Transferred to [facility], NIH improved to 16 upon arrival to their ED. S/p emergent thrombectomy and given TNK (initially attempted right fem access but unable to pass, tried left fem access instead). SALES HUNTER evaluated and recommended pureed diet. Notable hx: right handed, CAD, NC, SSS s/p pacemaker, AFib s/p AV node ablation in 2019, HLD, HTN, CHF Patient Active Problem List Diagnosis Hypertension Osteoarthritis Hyperlipidemia Coronary artery disease involving [place] coronary artery of [place] heart Paroxysmal atrial fibrillation (CMS/HCC) (HCC) Chronic GERD Anxiety Abdominal aortic aneurysm (AAA) without rupture (HCC) B12 deficiency Sick sinus syndrome (CMS/HCC) (HCC) GENNY (obstructive sleep apnea) History of coronary artery stent placement Cardiac pacemaker in situ 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) Ischemic stroke (HCC) Acute CVA (cerebrovascular accident) (HCC) Past Medical History: Diagnosis Date Adiposity obesity [...] Hyperlipidemia Hypertension Hypertension Myocardial infarction (CMS/HCC) (HCC) 2015 Sleep apnea Vertigo Past Surgical History: Procedure Laterality Date ABDOMINAL SURGERY CARDIAC PACEMAKER PLACEMENT CATARACT EXTRACTION W/ INTRAOCULAR LENS IMPLANT Bilateral CHOLECYSTECTOMY 1981 Cholecystectomy EYE SURGERY OTHER SURGICAL HISTORY Right 1980 partial oopherectomy OTHER SURGICAL HISTORY heart cath with stent 2014 [place]/[facility] OTHER SURGICAL HISTORY 2016 a.fib: loop recorder implanted OTHER SURGICAL HISTORY 2016 Atrial Fibrillation: Cardiovascular Intervention (ablation) SKIN BIOPSY SUBJECTIVE LIVES WITH: alone LIVING ENVIRONMENT: [address] with handrail 1-story house. DOes not access basement. PRIOR LEVEL OF FUNCTION: Independent in BADLs/IADLs and mobility. No AD used prior to admission. Enjoys gardening and spending time with Buster. No falls in past 6 months. EQUIPMENT OWNED: none EQUIPMENT USED: none SOCIAL SUPPORTS: 4 daughters that plan to rotate their schedules to provide daily assist/supervision. Unsure if anyone available overnight. PATIENT/FAMILY GOAL: none stated MENTAL STATUS/ORIENTATION: Alert and oriented x4 OBJECTIVE PRECAUTIONS: fall, aspiration APPEARANCE/POSTURE: sitting in w/c in gym, alarm activated, daughter present, no apparent distress. VITAL SIGNS: Resting BP: 101/71 Post-activity BP: 81/53 Resting heart rate: 79 Post-activity heart rate: 139* questionable SpO2 reading Resting O2 sat: 98% Post-activity O2 sat: 85-96% intermittent reading but questionable SpO2. PAIN: Pre-therapy pain level: 0/10 Post-therapy pain level/response to intervention: 0/10 LE ASSESSMENTS: Right LE ROM: WFL Left LE ROM: WFL Right LE strength: DF 5/5, quads 4/5, hamstrings 2+/5, hip flexors 3+/5, hip abduction 2+/5, hip adduction 2+/5 Left LE strength: grossly 5/5 Coordination: mild ataxia RLE and RUE Tone: normal in BLE MOBILITY: Bed Mobility: CG assist for sit to/from supine, increased time needed to sit up and cues to not hold breath. Supervision with verbal cues for technique for rolling. Transfers: CG assist for sit to/from stand with w/w and maximal cues for hand placement. CG/min assist for sit to/from stand with SBQC, cues for upright posture. Min assist for w/c to/from bed with w/w with mild steadying required. Ambulation: CG assist for 50' with w/w, cues for R hand to stay on walker, fast/impulsive kimberly, w/w too far in front and poor obstacle avoidance. CG/min assist for 20' with SBQC, slower kimberly and decreased stability and cues needed for upright posture and sequencing. Stairs: min assist for 4 steps with bilateral handrail, moderate cues for LE sequencing. Increased instability during descent with associated reports of weakness. Wheelchair management & propulsion: N/A Balance: Static sitting balance: good Dynamic sitting balance: good Static standing balance: fair+ with BUE support Dynamic standing balance: fair with BUE support Additional Treatment Provided: NT Appearance/Posture at end of treatment session: supine in bed, alarm activated, room air, call light in reach, no apparent distress. RNJames, given handoff. ASSESSMENT PROBLEM LIST: decreased balance, limited insight into deficits, decreased strength, decreased endurance, gait instability, decreased functional mobility BARRIERS TO LEARNING: Physical and Cognitive BARRIERS TO DISCHARGE: Pain, Impulsivity, Limited safety awareness, Limited insight into deficits, Communication deficit, Decreased endurance, Decreased proprioception, Upper extremity weakness, Lower extremity weakness, Medical complications, and Stairs at home REHAB POTENTIAL/PROGNOSIS: good PLAN RECOMMENDATIONS: Home with 24/7 assist and HHPT TREATMENT PLAN/INTERVENTIONS: strength training, mobility training, gait training, neuromuscular reeducation, balance training, endurance training, education, family teaching, and safe use of DME FREQUENCY: 5x/week, BID EQUIPMENT RECOMMENDATIONS: wheeled walker vs cane pending progress EDUCATION & GOALS: PATIENT/FAMILY EDUCATION: what to expect on rehab, role of PT, safety during stay, transfers, gait,bed mobility, PT POC RESPONSE TO EDUCATION: needs reinforcement Refer to multi-disciplinary care plan section for PT specific goals. * Opal Mace MD - 08/13/2022 10:33 AM CDT INPATIENT REHABILITATION DAILY PROGRESS NOTE CHIEF COMPLAINT: CVA SUBJECTIVE: Does not like being on late schedule even though requested it yesterday. Does not like gravy on herfood, makes her sick to her stomach. Reports right foot pain from not moving it. Daughter present OBJECTIVE: VITALS: Vitals: 08/12/22 1340 08/12/22 2022 08/13/22 0725 08/13/22 0830 BP: 121/62 (!) 73/40 136/60 BP Location: Right arm Right arm Patient Position: Lying Sitting Pulse: 69 69 70 Resp: 16 18 Temp: 36.6 ??C (97.8 ??F) 36.4 ??C (97.5 ??F) TempSrc: Oral Temporal SpO2: 98% 97% Weight: Height: 154.9 cm (5' 0.98 ) PHYSICAL EXAM: General: no acute distress, in bed HEENT: normocephalic, trachea midline Heart: rrr Lungs: ctab GI: soft, nontender Neuro: alert, oriented, dysarthric LABS/RADIOLOGY/DIAGNOSTIC REVIEW Recent Labs Lab Units 08/13/22 0937 WBC K/cumm 8.9 HEMOGLOBIN g/dL 12.2 HEMATOCRIT % 38.4 PLATELETS K/cumm 335 Recent Labs Lab Units 08/13/22 0937 SODIUM mmol/L 139 POTASSIUM PLASMA mmol/L 4.0 CHLORIDE mmol/L 102 CO2 mmol/L 26 ANIONGAP mmol/L 11 GLUCOSE mg/dL 105 BUN SERUM mg/dL 23 CREATININE mg/dL 0.76 CALCIUM mg/dL 9.2 ALBUMIN g/dL 3.5 ALK PHOS Units/L 35* ALT Units/L 13 AST Units/L 28 BILIRUBIN TOTAL mg/dL 0.5 Recent Labs Lab Units 08/13/22 0937 08/11/22 2154 08/11/22 0547 08/09/22 20308/08/22 2253 08/08/22 2139 GLUCOSE mg/dL 105 90 96 112 -- 119 POC GLUCOSE MONITOR mg/dL -- -- -- -- 124 -- SALES HUNTER Cognition: oriented x3 SALES HUNTER Communication: word finding deficits and dysarthria SALES HUNTER Swallowing: assessed at . Patient with oral dysphagia/puree diet/thin liquids. No results found. MEDICATIONS: Current Facility-Administered Medications: acetaminophen (TYLENOL) tablet 650 mg, 650 mg, oral, Q6H PRN, Opal Mace MD apixaban (ELIQUIS) tablet 5 mg, 5 mg, oral, Q12H NAVEED, Opal Mace MD, 5 mg at 08/13/22820 aspirin chewable tablet 81 mg, 81 mg, oral, Daily, Opal Mace MD, 81 mg at 08/13/22820 calcium carbonate (TUMS) chewable tablet 1,000 mg, 400 mg of elemental calcium, oral, TID PRN, Opal Mace MD dapagliflozin (FARXIGA) tablet 10 mg, 10 mg, oral, Daily, Opal Mace MD, 10 mg at08/13/22820 furosemide (LASIX) tablet 40 mg, 40 mg, oral, Daily, Opal Mace MD, 40 mg at 08/13/22820 [Held by Provider] losartan (COZAAR) tablet 12.5 mg, 12.5 mg, oral, Daily, Opal Mace MD, 12.5 mg at 08/13/22820 metoprolol XL (TOPROL-XL) extended release tablet 12.5 mg, 12.5 mg, oral, Daily, Opal Mace MD, 12.5 mg at 08/13/22820 ondansetron (ZOFRAN) tablet 4 mg, 4 mg, oral, TID PRN, Opal Mcae MD, 4 mg at 08/12/22 145 polyethylene glycol (MIRALAX) packet 17 g, 17 g, oral, Daily, Opal Mace MD, 17 gat 08/13/22821 ramelteon (ROZEREM) tablet 8 mg, 8 mg, oral, Nightly PRN, Opal Mace MD, 8 mg at 08/12/222013 rosuvastatin (CRESTOR) tablet 10 mg, 10 mg, oral, Nightly, Opal Mace MD, 10 mg at 08/12/222013 senna-docusate (PERICOLACE) 8.6-50 mg per tablet 1 tablet, 1 tablet, oral, BID PRN, Opal Mace MD simethicone (MYLICON) chewable tablet 80 mg, 80 mg, oral, TID PRN, Opal Haywood MD [Held by Provider] spironolactone (ALDACTONE) split tablet 12.5 mg, 12.5 mg, oral, Daily, Opal Mace MD, 12.5 mg at 08/13/22 0822 traZODone (DESYREL) tablet 25 mg, 25 mg, oral, Nightly PRN, Opal Mace MD ASSESSMENT/PLAN: MEDICAL PLAN OF CARE: 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, TNK Dysphagia Right hemiparesis Dysarthria Impaired mobility, ADLs, transfers, gait, balance, strength, endurance, speech, cognition, swallow Start PT, OT evaluation Start SALES HUNTER evaluation Continue Aspirin 81mg, Eliquis 5mg bid, rosuvastatin 10mg qhs HLD: continue rosuvastatin 10mg qhs HTN Afib s/p AV node ablation Sick sinus syndrome s/p pacemaker AAA HFrEF ER 20% CAD s/p stent 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 continue losartan 12.5mg daily, metoprolol xl 12.5mg daily, spironolactone 12.5mg bid, Lasix 40mg daily, Eliquis 5mg bid, Farxiga 10mg daily 08/13: BP Soft, hold losartan and spironolactone GERD: monitor for symptoms, tums prn Anemia : monitor hgb Anxiety: monitor Pain: Continue Tylenol 650mg q6h prn Bowels: Continue miralax daily, pericolace bid prn, simethicone prn Nausea: Continue Zofran prn, Tums prn Insomnia: Continue trazodone 25mg qhs prn Diet: puree/thin, NO GRAVY DVT ppx: eliquis Precautions: Fall, aspiration Weightbearing status: Full Code: LIMITED - No CPR Care discussed with Nursing, SALES HUNTER Reviewed labs, wnl no changes REHAB PLAN OF CARE: Patient's expected intensity and duration of participation in the interdisciplinary rehabilitation program and disciplines that comprise this team: Therapies required to achieve goals:The patient will benefit from integrated coordination of care from the following interdisciplinary services: Medical Supervision, 24 hours Rehabilitation Nursing, Physical Therapy, Occupational Therapy, Case Management; Speech Therapy; Social Work Frequency and duration of therapies expect to be:Expected intensity and frequency of participation in the interdisciplinary rehab program is: 3 hours of therapy 5 days per week for the duration of length of stay Expected intensity and frequency of Physical Therapy (PT): 1.5 hours per day over 5-7 days for the duration of length of stay Expected intensity and frequency of Occupational Therapy (OT): 1.5 hours per day over 5-7 days per week for the duration of length of stay Expected intensity and frequency of Speech Therapy (SALES HUNTER): 1 hour per day per day over 5-7 days per week for the duration of length of stay FUNCTIONAL CHANGE: Therapy evals today DISCHARGE PLANNING: Expected Discharge Date: TBD Equipment: TBD Family Training: SW to set up Education: Follow up Appointments: PCP 1-2weeks Neurology 1-2 weeks Cardiology 1-2 weeks Opal Mace MD Physical Medicine and Rehabilitation I can be reached from 7am-7pm through phone or perfect serve. Hospitalist front desk receptionist from 7pm-7am * Bell Moffett SLP - 08/13/2022 10:02 AM CDT Speech Language/Pathology SPEECH LANGUAGE PATHOLOGY PROGRESS NOTE Patient's Name: Abena Giron : 1940 Age: 82 y.o. Time In: 930 Time Out: 1000 Patient Active Problem List Diagnosis Hypertension Osteoarthritis Hyperlipidemia Coronary artery disease involving [place] coronary artery of [place] heart Paroxysmal atrial fibrillation (CMS/HCC) (HCC) Chronic GERD Anxiety Abdominal aortic aneurysm (AAA) without rupture (HCC) B12 deficiency Sick sinus syndrome (CMS/HCC) (HCC) GENNY (obstructive sleep apnea) History of coronary artery stent placement Cardiac pacemaker in situ 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) Ischemic stroke (HCC) Acute CVA (cerebrovascular accident) (HCC) Past Medical History: Diagnosis Date Adiposity obesity [...] Hyperlipidemia Hypertension Hypertension Myocardial infarction (CMS/HCC) (HCC) 2015 Sleep apnea Vertigo Past Surgical History: Procedure Laterality Date ABDOMINAL SURGERY CARDIAC PACEMAKER PLACEMENT CATARACT EXTRACTION W/ INTRAOCULAR LENS IMPLANT Bilateral CHOLECYSTECTOMY 1981 Cholecystectomy EYE SURGERY OTHER SURGICAL HISTORY Right 1980 partial oopherectomy OTHER SURGICAL HISTORY heart cath with stent 2013 [place]/[facility] OTHER SURGICAL HISTORY 2016 a.fib: loop recorder implanted OTHER SURGICAL HISTORY 2016 Atrial Fibrillation: Cardiovascular Intervention (ablation) SKIN BIOPSY SUBJECTIVE MENTAL STATUS: alert and oriented. Daughter present. PAIN: Pre Therapy Pain Level:0 Pain Location: Pain Intervention: Post Therapy Pain Level/Response to Intervention:0 OBJECTIVE PRECAUTIONS: fall SWALLOWING: assessed at . Pureed and thin liquids. COGNITION: forgetful but oriented and with good insight. COMMUNICATION: dysarthric and with word finding deficits TREATMENT ACTIVITIES: sentence level tasks: unable to formulate more than phrase level. 70% intelligible with cues.;oral exercises introduced and completed x10. EDUCATION: PATIENT/FAMILY EDUCATION: discussed rehab schedule with patient and daughter. Response to Education: verbalized understanding. ASSESSMENT Activity Tolerance/Response to S.T.: good Barriers to learning: communication Current status: moderate verbal expression deficits and dysarthria. Progress toward goals: Patient continues to progress toward previously set goals which remain appropriate at this time. PLAN Multi-Disciplinary Problems (from Speech Therapy) Active Problems Problem: Swallowing Start Date: 08/12/22 Goal Start Date Expected End Date End Date LTG - Patient will tolerate the least restrictive diet consistency to allow for safe consumption ofdaily meals 08/12/22 08/19/22 -- Problem: Communication/Motor Speech Start Date: 08/12/22 Goal Start Date Expected End Date End Date STG - Patient will participate in oral-motor exercises to improve strength 08/12/22 08/19/22 -- Goal Start Date Expected End Date End Date STG - Patient will identify and utilize word retrieval Intervention in structured tasks 08/12/22 08/19/22 -- Goal Start Date Expected End Date End Date STG - Patient will use speech intelligibility Intervention at conversational level 08/12/22 08/19/22 -- Frequency of Treatment: bid 5x weekly Recommendations: to be determined. If this is the last note, consider this the discharge summary. * Azalea Martinez - 08/13/2022 9:04 AM CDT Occupational Therapy NOTE / SESSION TYPE: OT EVALUATION PATIENT'S NAME: Abena Giron AGE / SEX: 82 y.o. / female ROOM: [place] [id number] : 1940 DATE: 08/13/22 TIME IN: 1010 TIME OUT: 1105 Patient Active Problem List Diagnosis Hypertension Osteoarthritis Hyperlipidemia Coronary artery disease involving [place] coronary artery of [place] heart Paroxysmal atrial fibrillation (CMS/HCC) (HCC) Chronic GERD Anxiety Abdominal aortic aneurysm (AAA) without rupture (HCC) B12 deficiency Sick sinus syndrome (CMS/HCC) (HCC) GENNY (obstructive sleep apnea) History of coronary artery stent placement Cardiac pacemaker in situ 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) Ischemic stroke (HCC) Acute CVA (cerebrovascular accident) (HCC) Past Medical History: Diagnosis Date Adiposity obesity [...] Hyperlipidemia Hypertension Hypertension Myocardial infarction (CMS/HCC) (HCC) 2015 Sleep apnea Vertigo Past Surgical History: Procedure Laterality Date ABDOMINAL SURGERY CARDIAC PACEMAKER PLACEMENT CATARACT EXTRACTION W/ INTRAOCULAR LENS IMPLANT Bilateral CHOLECYSTECTOMY 1981 Cholecystectomy EYE SURGERY OTHER SURGICAL HISTORY Right 1980 partial oopherectomy OTHER SURGICAL HISTORY heart cath with stent 2013 [place] OTHER SURGICAL HISTORY 2016 a.fib: loop recorder implanted OTHER SURGICAL HISTORY 2016 Atrial Fibrillation: Cardiovascular Intervention (ablation) SKIN BIOPSY ADDITIONAL SIGNIFICANT MEDICAL INFORMATION: H&P obtained from review of medical records, confirmed with pt. 82yoF with history of HTN, afib, sick sinus syndrome presented to [facility] on 08/03 with right sided weakness. Found to have M1 occlusion and transferred to [facility] for further management. She underwent emergent thrombectomy and was given TNK. Evaluated by speech and started on pureed diet. Therapies recommending acute rehab prior to return home with family. R-sided weakness. PRECAUTIONS (INCLUDING WEIGHT-BEARING): Fall risk and Bed / chair alarm SUBJECTIVE: I'm already wiped out THERAPY PAIN: PRE-THERAPY PAIN LEVEL: 0 /10 PAIN LEVEL GOAL: 0 /10 PAIN LOCATION: No pain - Location N/A PAIN INTERVENTION(S): No pain - Intervention N/A POST-THERAPY PAIN LEVEL: 0 /10 PAIN SCALE USED: 0-10 SCALE PRIOR FUNCTION: LIVES WITH: Alone (w/cat) OTHER SOCIAL SUPPORTS / ASSISTANCE AVAILABLE: 3 daughters LIVING ENVIRONMENT (TYPE OF RESIDENCE / ENTRANCE ACCESSIBILITY): 1-story house/ trailer BATHROOM LOCATION AND SET-UP: Main floor and Tub/shower combination PRIOR LEVEL OF FUNCTION: IND w/ BADL's, IND w/ IADL's, COMMUNITY ACCESS / DRIVING: Drives self EQUIPMENT OWNED: NONE EQUIPMENT USED: NONE VOCATIONAL: retired SOCIAL ROLES / HOBBIES: read, crafting, gardening PATIENT / FAMILY GOAL(S): Get out of bed and go home OBJECTIVE: APPEARANCE: PRESENTATION UPON OT ARRIVAL: PATIENT Supine with head of bed elevated PRESENTATION UPON OT DEPARTURE: PATIENT Sitting in manual wheelchair with staff assistance BED / CHAIR ALARM IN PLACE AND ACTIVATED UPON OT DEPARTURE: Yes CALL LIGHT WITHIN ARMS REACH OF PATIENT AT END OF SESSION: No - due to patient taken to physical therapy gym COMPLETED PATIENT HANDOFF AND NOTIFIED Physical Therapist / Physical Therapist Ultrasound Tester, NAME: Raudel, OF PATIENT'S LOCATION AND FUNCTIONAL STATUS UPON COMPLETION OF SESSION VITAL SIGNS: HEART RATE AT REST: 74 BPM O2 SATS AT REST: 98 % OXYGEN LPM: room air COGNITIVE / PERCEPTUAL: A&O x4 BIMS: NOT COMPLETED - SPEECH THERAPY TO ADDRESS HEALTH LITERACY: NOT COMPLETED - SPEECH THERAPY TO ADDRESS CAM (Signs and Symptoms of Delirium): NOT COMPLETED - SPEECH THERAPY TO ADDRESS SELF CARE: SHOWER / BATHE SELF TYPE OF BATHING: SPONGEBATHING LOCATION OF SHOWER / BATHE SELF: Sitting in manual wheelchair TASKS COMPLETED: ALL COMPONENTS COMPONENTS THAT REQUIRED ASSISTANCE (IF APPLICABLE): NONE OVERALL ASSIST LEVEL: INCIDENTAL TOUCHING ASSISTANCE ADAPTIVE EQUIPMENT (IF APPLICABLE): no assistive device ADDITIONAL DOCUMENTATION: CGA for standing ORAL HYGIENE LOCATION OF ORAL HYGIENE: Sitting in manual wheelchair OVERALL ASSIST LEVEL: SET-UP / CLEAN-UP ASSISTANCE ADDITIONAL DOCUMENTATION: N/A OTHER GROOMING TASKS LOCATION OF OTHER GROOMING TASKS: Sitting in manual wheelchair TASKS COMPLETED: APPLYING DEODORANT OVERALL ASSIST LEVEL: SET-UP / CLEAN-UP ASSISTANCE ADDITIONAL DOCUMENTATION: N/A UE DRESSING LOCATION OF UE DRESSING: Sitting in manual wheelchair TASKS COMPLETED: Pullover shirt OVERALL ASSIST LEVEL: PARTIAL / MODERATE ASSISTANCE: LESS THAN HALF (1% - 49%) ADDITIONAL DOCUMENTATION: MIN A for threading RUE. LE DRESSING (UNDERWEAR / PANTS) LOCATION OF LE DRESSING (UNDERWEAR / PANTS): Sitting in manual wheelchair and Standing at Sink TASKS COMPLETED: Elastic waist pants and Incontinence briefs as underwear OVERALL ASSIST LEVEL: PARTIAL / MODERATE ASSISTANCE: LESS THAN HALF (1% - 49%) ADDITIONAL DOCUMENTATION: MIN A for pulling briefs/pants up over hips, MIN A for threading LLE, CHIP overall PUTTING ON / TAKING OFF FOOTWEAR LOCATION OF PUTTING ON / TAKING OFF FOOTWEAR: Sitting in manual wheelchair TASKS COMPLETED: Footie(s) OVERALL ASSIST LEVEL: PARTIAL / MODERATE ASSISTANCE: LESS THAN HALF (1% - 49%) ADDITIONAL DOCUMENTATION: MIN A for starting socks over toes TOILETING LOCATION OF TOILETING: SITTING ON STANDARD TOILET TASKS COMPLETED: HYGIENE MANAGEMENT OVERALL ASSIST LEVEL: INCIDENTAL TOUCHING ASSISTANCE ADDITIONAL DOCUMENTATION: CGA MOBILITY: TOILET TRANSFER LOCATION: STANDARD TOILET OVERALL ASSIST LEVEL: INCIDENTAL TOUCHING ASSISTANCE DEVICE: GRAB BARS ADDITIONAL DOCUMENTATION: CGA BED MOBILITY: Supine--log rolling to sit EOB--> MIN Seated EOB--stand pivot to sit in w/c-->CGA TRANSFERS: Sit to/from stand to/from w/c-->CGA HEARING / SPEECH / VISION: EXPRESSION OF IDEAS AND WANTS OVERALL ASSIST LEVEL: SOME DIFFICULTY UNDERSTANDING VERBAL AND NON-VERBAL CONTENT OVERALL ASSIST LEVEL: UNDERSTANDS CAREGIVER PRESENT (YES / NO): Yes: Chelle Tavera ASSESSMENT: ACTIVITY TOLERANCE / RESPONSE TO OT: GOOD PARTICIPATION, GOOD MOTIVATION, RECEPTIVE TO EDUCATION / TRAINING, and FAIR TOLERANCE REHAB POTENTIAL (PROGNOSIS): good PROBLEM LIST: Decreased UE ROM , Decreased UE strength, Decreased coordination, Decreased mobility,Decreased endurance, Decreased communication, and Decreased ADL independence BARRIERS TO DISCHARGE: Decreased endurance, Upper extremity weakness, and Lower extremity weakness PLAN: THERAPY PLAN: OT RECOMMENDATIONS: LOCATION: Home SUPERVISION: Intermittent FOLLOW-UP THERAPY RECOMMENDATIONS: HOME HEALTH OT FREQUENCY OF THERAPY: BID SESSIONS 5 DAYS / WEEK INTERVENTIONS / EDUCATION NEEDS: ADL training, Compensatory ADL strategies, Balance activities, Functional transfer training, UE home exercise program education, Family training as appropriate, IADL training, and Energy conservation techniques EDUCATION PROVIDED: Role of OT, OT plan of care, ADL training, Compensatory ADL strategies, Bed mobility training, Functional transfer training, and Family / Caregiver training JAIL GOALS: TBD, see care plan Azalea Martinez 08/13/22 Cosigned by Hiral Parks OT at 08/13/2022 4:40 PM CDT * Bell Moffett, SALES HUNTER - 08/12/2022 2:18 PM CDT Speech Language/Pathology SPEECH-LANGUAGE PATHOLOGY INITIAL EVALUATION Patient's Name: Abena Giron : 1940 Age: 82 y.o. Time In: 1355 Time Out: 1420 Current diagnosis and hospital course: patient admitted to acute rehab following thrombectomy,rightsided weakness. Patient Active Problem List Diagnosis Hypertension Osteoarthritis Hyperlipidemia Coronary artery disease involving [place] coronary artery of [place] heart Paroxysmal atrial fibrillation (CMS/HCC) (HCC) Chronic GERD Anxiety Abdominal aortic aneurysm (AAA) without rupture (HCC) B12 deficiency Sick sinus syndrome (CMS/HCC) (HCC) GENNY (obstructive sleep apnea) History of coronary artery stent placement Cardiac pacemaker in situ 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) Ischemic stroke (HCC) Acute CVA (cerebrovascular accident) (HCC) Past Medical History: Diagnosis Date Adiposity obesity [...] Hyperlipidemia Hypertension Hypertension Myocardial infarction (CMS/HCC) (HCC) 2015 Sleep apnea Vertigo Past Surgical History: Procedure Laterality Date ABDOMINAL SURGERY CARDIAC PACEMAKER PLACEMENT CATARACT EXTRACTION W/ INTRAOCULAR LENS IMPLANT Bilateral CHOLECYSTECTOMY 1981 Cholecystectomy EYE SURGERY OTHER SURGICAL HISTORY Right 1980 partial oopherectomy OTHER SURGICAL HISTORY heart cath with stent 2013 [place]/[facility] OTHER SURGICAL HISTORY 2016 a.fib: loop recorder implanted OTHER SURGICAL HISTORY 2016 Atrial Fibrillation: Cardiovascular Intervention (ablation) SKIN BIOPSY SUBJECTIVE LIVES WITH:alone LIVING ENVIRONMENT: house PRIOR LEVEL OF FUNCTIONING:independent with assist from her daughters with laundry. SOCIAL SUPPORTS: 4 daughters PATIENT/FAMILY GOAL:return home alone OBJECTIVE PRECAUTIONS:fall,aspiration PAIN: Pre Therapy Pain Level:0 Pain Location: Pain Intervention: Post Therapy Pain Level/Response to Intervention:0 ORAL MOTOR Right labial weakness MOTOR SPEECH dysarthric COMPREHENSION Patient follows multi step commands 100% EXPRESSION Word finding deficits but able to speak at phrase level COGNITION Oriented x3,BIMS completed. SWALLOWING/DYSPHAGIA Assessed at with pureed diet/thin liquids recommended. Speech will follow and re assess in a fewdays. ASSESSMENT Patient with moderate dysarthria and word finding deficits,oral dysphagia. BARRIERS TO LEARNING:Visual BARRIERS TO DISCHARGE:No caregiver support and Communication deficit REHAB POTENTIAL/PROGNOSIS:good PLAN RECOMMENDATIONS:to be determined. TREATMENT PLAN/INTERVENTIONS:see goals. FREQUENCY:bid 5x weekly If this is the last note, consider this the discharge summary EDUCATION AND GOALS Multi-Disciplinary Problems (from Speech Therapy) Active Problems Problem: Swallowing Start Date: 08/12/22 Goal Start Date Expected End Date End Date LTG - Patient will tolerate the least restrictive diet consistency to allow for safe consumption ofdaily meals 08/12/22 08/19/22 -- Problem: Communication/Motor Speech Start Date: 08/12/22 Goal Start Date Expected End Date End Date STG - Patient will participate in oral-motor exercises to improve strength 08/12/22 08/19/22 -- Goal Start Date Expected End Date End Date STG - Patient will identify and utilize word retrieval Intervention in structured tasks 08/12/22 08/19/22 -- Goal Start Date Expected End Date End Date STG - Patient will use speech intelligibility Intervention at conversational level 08/12/22 08/19/22 -- PATIENT/FAMILY EDUCATION:discussed rehab schedule and goals. RESPONSE TO EDUCATION:demonstrated understanding documented in this encounter H&P Notes * Opal Mace MD - 08/12/2022 12:24 PM CDT INPATIENT REHABILITATION ADMISSION HISTORY AND PHYSICAL Abena Giron 1940 PRIMARY CARE PROVIDER: Jaleel Mcgovern MD Referring Provider: Foreign Melendez MD PHD Follow up Appointments: PCP 1-2weeks Neurology 1-2 weeks Cardiology 1-2 weeks CC CVA REHAB IMPAIRMENT CODE: Impairment Code Group: Stroke Stroke: 01.2 HPI: Information from H&P obtained from encounter today with the patient and review of medical record. 82yoF with history of HTN, afib, sick sinus syndrome presented to [facility] on 08/03 with right sided weakness. Found to have M1 occlusion and transferred to [facility] for further management. She underwent emergent thrombectomy and was given TNK. Evaluated by speech and started on pureed diet. Therapies recommending acute rehab prior to return home with family. Met with patient and two of her four daughters today. She states the ride over was bumpy and has some pain in her bottom, otherwise no pain. Had a bowel movement before EMS arrived to pick her up. Has had purewick in. States she is not a big eater and does not like the pureed diet. Not sleeping well. Denies fever, chills, chest pain, shortness of breath, nausea, vomiting, constipation, diarrhea, dysuria. PLOF: Independent without device. Lives alone with 3 steps to enter. Has a cat named [employer]. Likes to cook. Daughters to help out at home including laundry that is in the basement. ROS 10 point ROS reviewed and negative unless listed above in history. PRIOR LEVEL OF FUNCTION: Mobility status/Ambulation aid/assistive devices: Transfers: Independent Walking: Independent Walking assistive devices used: None Stair negotiation: Independent Activities of daily living (ADL) status/ Assistive devices used for ADLs: Dressing: Independent Bathing: Independent Toileting: Independent Bladder: Continent Bowel: Continent Domestic Chores: Independent Driving: Yes CURRENT FUNCTIONAL STATUS: Height: Height: 154.9 cm (5' 1 ) Weight: Weight: 71.2 kg (157 lb) Diet: Diet: Dyaphagia 1 - pureed solid; thin liquid Bladder: Bladder assessment: Francois cath , Bowel: Bowel assessment: Incontinent Date of last BM: Last BM Date: 08/07/22 Integumentary: Integumentary: sai score 17 Cardiopulmonary: Cardiopulmonary: Room air Dialysis: Dialysis: N/A Pain: Pain: Patient has pain that is controlled on current regimen IVs: ADL: OT Functional Mobility: 08/12/22: transfers Min-Mod A; bed mobility Min A (08/12/2022 9:31 AM) OT Self Care: grooming and LE dressing - Mod A (08/12/2022 9:31 AM) OT Cognition: Ox4 (08/12/2022 9:31 AM) OT Communication: expressive aphasia (08/12/2022 9:31 AM) MOBILITY/TRANSFERS: PT Functional Mobility: 08/11/22: ambulation 60ft WW Min A; transfers Min A; bed mobility SBA (08/12/2022 9:31 AM) COGNITION/SWALLOWING/SPEECH: SALES HUNTER Communication: expressive aphasia (08/12/2022 9:31 AM) SALES HUNTER Swallowing: Mild Dysphagia - pureed/thin (08/12/2022 9:31 AM) Patient/caregiver goals:Patient and Family Goals: to return home with caregiver assist and [facility] FAMILY SUPPORT/POTENTIAL BARRIERS TO RETURN HOME: Hearing: Normal Sensory Vision: Normal Cognition: Intact Communication: Normal Nutrition: Normal Occupation: retired for age Pre-Hospital Vocational Status: Retired for age Home Setting: One story home Prehospital Lives With: Alone Exterior Home Access: Steps (2 FANTASMA) Interior Home Access: No steps Pre hospital Living environment: Home Setting: One story home Prehospital Lives With: Alone PAST MEDICAL HISTORY: Past Medical History: Diagnosis Date Adiposity obesity [...] infarction (CMS/HCC) (HCC) 2014 Sleep apnea Vertigo PAST SURGICAL HISTORY: Past Surgical History: Procedure Laterality Date ABDOMINAL SURGERY CARDIAC PACEMAKER PLACEMENT CATARACT EXTRACTION W/ INTRAOCULAR LENS IMPLANT Bilateral CHOLECYSTECTOMY 1981 Cholecystectomy EYE SURGERY OTHER SURGICAL HISTORY Right 1980 partial oopherectomy OTHER SURGICAL HISTORY heart cath with stent 2013 [place]/[facility] OTHER SURGICAL HISTORY 2016 a.fib: loop recorder implanted OTHER SURGICAL HISTORY 2016 Atrial Fibrillation: Cardiovascular Intervention (ablation) SKIN BIOPSY FAMILY HISTORY: Family History Problem Relation Age of Onset Other Mother Angina; Cause of : Angina Dementia Mother Dementia; Depression Mother Depression; COPD Father COPD; Cause of : COPD Dementia Father Dementia; Depression Father Depression; Other Sister 75 DM, CAD; Other Sister Valve Replacement; Cancer Brother Cancer; Depression Brother Depression; Hypertension Brother Hypertension; Breast cancer Child SOCIAL HISTORY: reports that she quit smoking about 48 years ago. Her smoking use included cigarettes. She has never used smokeless tobacco. She reports that she does not use drugs. No alcohol history on file. PSYCHOSOCIAL HISTORY: anxiety MEDICATIONS: Current Facility-Administered Medications: acetaminophen (TYLENOL) tablet 650 mg, 650 mg, oral, Q6H PRN, Opal Mace MD apixaban (ELIQUIS) tablet 5 mg, 5 mg, oral, Q12H NAVEED, Opal Mace MD [START ON 08/13/2022] aspirin chewable tablet 81 mg, 81 mg, oral, Daily, Opal Haywood MD calcium carbonate (TUMS) chewable tablet 1,000 mg, 400 mg of elemental calcium, oral, TID PRN, Opal Mace MD [START ON 08/13/2022] dapagliflozin (FARXIGA) tablet 10 mg, 10 mg, oral, Daily, Opal Mace MD [START ON 08/13/2022] furosemide (LASIX) tablet 40 mg, 40 mg, oral, Daily, Opal Mace MD [START ON 08/13/2022] losartan (COZAAR) tablet 12.5 mg, 12.5 mg, oral, Daily, Opal Mace MD [START ON 08/13/2022] metoprolol XL (TOPROL-XL) extended release tablet 12.5 mg, 12.5 mg, oral, Daily, Opal Mace MD ondansetron (ZOFRAN) tablet 4 mg, 4 mg, oral, TID PRN, Opal Mace MD [START ON 08/13/2022] polyethylene glycol (MIRALAX) packet 17 g, 17 g, oral, Daily, Opal Mace MD ramelteon (ROZEREM) tablet 8 mg, 8 mg, oral, Nightly PRN, Opal Mace MD rosuvastatin (CRESTOR) tablet 10 mg, 10 mg, oral, Nightly, Opal Mace MD senna-docusate (PERICOLACE) 8.6-50 mg per tablet 1 tablet, 1 tablet, oral, BID PRN, Opal Mace MD simethicone (MYLICON) chewable tablet 80 mg, 80 mg, oral, TID PRN, Opal Haywood MD [START ON 08/13/2022] spironolactone (ALDACTONE) split tablet 12.5 mg, 12.5 mg, oral, Daily, Opal Mace MD ALLERGIES: Allergies Allergen Reactions Phenobarbital Hallucinations Codeine Rash, Vomiting, Hallucinations and Nausea only Reaction: Rash, , Reaction: rash, throw up, hallucinate, , , Reaction: Nausea, Vomiting, Lisinopril Anxiety and Other (See comments) Reaction: panic attack, nerves on edge., Morphine Rash, Nausea only and Vomiting Reaction: Rash, , , Reaction: Nausea, Vomiting, Penicillins Rash and Vomiting Reaction: Rash, , Reaction: throw up, rash, , , Reaction: Rash, Sotalol Unknown Beta-Blockers (Beta-Adrenergic Blocking Agts) Other (See comments) severe heart pain Diltiazem Itching PHYSICAL EXAM: Vital Signs: Vitals: 08/12/22 1216 BP: (!) 83/40 Pulse: 69 Resp: 18 Temp: 36.6 ??C (97.8 ??F) SpO2: 100% General: Awake, alert, oriented to person, place and year in NAD. Cooperative & appropriate throughout duration of exam. HEENT: Atraumatic, normocephalic. Oral mucosa is pink, moist. CV: RRR, no m/g/r appreciated. Resp: Lungs are clear to auscultation bilaterally. Chest rise is symmetric bilaterally. Respirations appear non-labored. GI: Abdomen is soft, non-tender, non-distended, normal bowel sounds. : No Francois in place. Skin/Lymph: Skin is warm, dry, pink. No obvious rashes or lesions appreciated. MSK: Strength shoulder abduction: L 5/5 R 4/5 elbow flexion: L 5/5 R 3/5 elbow extension L 5/5 R 3/5 hand mission analyst L 5/5 R 3/5 Strength hip flexion: L 4/5 R 3/5 knee extension: L 5/5 R 2/5 foot plantar-flexion: L 5/5 R 4/5 foot dorsi-flexion: L 5/5 R 4/5 Sensation: intact globally b/l UE/LE throughout but impaired on right Neuro: Mental status - Alert, appropriate, and cooperative during examination. Cognition & Comprehension - Able to follow commands. Knowledge of general information is grossly intact. Language - dysarthric with word finding deficits. CN - I: not tested II: Visual krause grossly intact to confrontational testing III, IV, : EOMI, no nystagmus appreciated V: Facial sensation intact & equal bilaterally to light touch. VII: right sided facial droop VIII: Hearing grossly intact bilaterally to finger rub. IX, X: Uvula midline, palate elevated symmetrically. XI: Shoulder shrug 5/5 on left, 4/5 on right XII: Tongue protruded to midline. LABS AND IMAGING: Recent Labs Lab Units 08/11/222153 WBC K/cumm 8.2 HEMOGLOBIN g/dL 11.5* HEMATOCRIT % 34.5* PLATELETS K/cumm 289 Recent Labs Lab Units 08/11/222153 SODIUM mmol/L 141 POTASSIUM PLASMA mmol/L 3.9 CHLORIDE mmol/L 100 CO2 mmol/L 31 ANIONGAP mmol/L 10 GLUCOSE mg/dL 90 BUN SERUM mg/dL 29* CREATININE mg/dL 0.75 CALCIUM mg/dL 9.3 Recent Labs Lab Units 08/11/22215308/11/22 0547 08/09/[id number]/08/[id number] GLUCOSE mg/dL 90 96 112 -- 119 153 POC GLUCOSE MONITOR mg/dL -- -- -- 124 -- -- CT Head WO Contrast Result Date: 08/09/2022 Interval increased hypoattenuation of the left postcentral gyrus, concerning for an evolving infarction in this patient with right-sided weakness. Recommend further evaluation with brain MRI. Dictated by: Arturo Ramos MD The radiology attending physician has personally reviewed this study, and had reviewed and/or edited this written report and agrees with it. Electronically signed by: Catrachita Telles M.D, PHD [place] Modified Barium Swallow W Video Result Date: 08/08/2022 The swallowing mechanism is abnormal; see above comments. Please refer to the Speech Pathology procedure note for safe swallow recommendations as well as additional information regarding the oral-pharyngeal swallow function, plan of care, and recommended follow up. Dictated by: Bautista Ambrocio MD The radiology attending physician has personally reviewed this study, and had reviewed and/or edited this written report and agrees with it. Electronically signed by: Demetrius Matta M.D. IR Percutaneous Arterial Thrombectomy, Intracranial Result Date: 08/05/2022 1. Left middle cerebral artery occlusion, TICI 0 2. Successful mechanical thrombectomy with TICI 2Breperfusion of the left middle cerebral artery Electronically signed by: Kamlesh Steele M.D. XR Abdomen Ap 1 Vw Result Date: 08/05/2022 A single view of the abdomen is submitted for evaluation. Feeding tube has its tip in the proximal duodenum. Cholecystectomy clips and cardiac pacer are noted. Visualized bowel gas pattern is within normal. There is left basilar atelectasis. Electronically signed by: Reynaldo Qureshi M.D. CT Head WO Contrast Result Date: 08/04/2022 Suboptimal due to portable technique. 1. No acute intracranial hemorrhage. No large acute territoryinfarct. 2. Previously described focal hyperdensity within the left ICA terminus is better seen on prior study. Dictated by: Watson Beltrán M.D. The radiology attending physician has personally reviewed this study, and had reviewed and/or edited this written report and agrees with it. Electronically signed by: Bernice Segura M.D. XR Chest 1 View Result Date: 08/03/2022 Comparison is made to prior study of 10/15/2018. In the interval, patient has been intubated with endotracheal tube 5.1 cm above issac. Pacemaker seen the leads overlying the right atrium and right ventricle. Mild basilar atelectasis seen with possible tiny pleural. No pneumothorax is seen. Trace pulmonary edema is noted. No pneumonia. The heart size and mediastinal contour are unchanged. Electronically signed by: Cy Hawley M.D. CT Chest Abdomen Pelvis W Contrast Result Date: 08/03/2022 1. No evidence of acute bleeding within the chest, abdomen, or pelvis. 2. Moderate cardiomegaly andmild pulmonary edema with small bilateral pleural effusions. 3. Hypoattenuation in the left atrial appendage which could be related to mixing artifact although thrombus could appear similarly. This can be further evaluated with echocardiogram. 4. Gas in the right atrial appendage likely related to injection as well as a smaller amount in the internal jugular veins. 5. Scattered calcification and complete occlusion of the proximal left subclavian artery which is likely chronic which reconstitutes proximally. 6. Extensive atherosclerotic calcification of the abdominal aorta and splanchnic arteries with at least moderate narrowing of the distal superior mesenteric artery. No evidence of bowel ischemia.Hazy mesenteric stranding in the central mesentery is nonspecific and but may represent mesenteric panniculitis. This report was discussed via phone call to Dr. Gonsalez by Mike Donahue MD at 08/03/2022 5:11 PM Dictated by: Mike Donahue MD The radiology attending physician has personally reviewed this study, and had reviewed and/or edited this written report and agrees with it. Electronically signed by: Estella Boyd M.D. CT Stroke Head WO Contrast Result Date: 08/03/2022 1. Focal hyperdensity within the left ICA terminus, possibly client support representative of persistent occlusionas seen on the recent CTA, though there is some degree of retained vascular contrast. 2. No evidence of acute intracranial hemorrhage after thrombolytic administration. The non-time sensitive CT HEADW/O was communicated by Dr. Gunter to Dr. Donahue at 5:23 PM. Patient was already in neurointerventional suite at the time of the call. This CT was not performed as a code stroke due to known occlusion at the outside hospital. Dictated by: Mike Donahue MD The radiology attending physician has personally reviewed this study, and had reviewed and/or edited this written report and agrees with it. Electronically signed by: Rivas Lee M.D. 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 continue losartan 12.5mg daily, metoprolol xl 12.5mg daily, spironolactone 12.5mg bid, Lasix 40mg daily, Eliquis 5mg bid, Farxiga 10mg daily GERD: monitor for symptoms, tums prn Anemia : monitor hgb Anxiety: monitor Pain: Start Tylenol 650mg q6h prn Bowels: Start miralax daily, pericolace bid prn, simethicone prn Nausea: Start Zofran prn, Tums prn Insomnia: start trazodone 25mg qhs prn Diet: puree/thin DVT ppx: eliquis Precautions: Fall, aspiration Weightbearing status: Full Code: LIMITED - No CPR STATUS COMPARED TO PRESCREEN: I have reviewed the preadmission screen and there were no significant medical differences between the patient's current status and the preadmission screening evaluation. Functional status will be fully evaluated within the first day. This rehabilitation stay remain reasonable and necessary. NEED FOR INPATIENT REHABILITATION: Inpatient rehab is medically necessary for this patient at this time in order for the patient to receive at least 3 hours of therapy per day, 5 days per week which will allow us to maximize functional gains while we can continually monitor for complications related to the admitting diagnoses as well as other medical comorbidities, which could include infection, pain out of control and limiting participation in therapy, DVT, hypertension/hypotension, falls, or decline in status. Medical necessity: The patient requires an inpatient rehabilitation facility level of care due to active, comorbid medical problems including: -s/p stroke: close monitoring of neurological examination changes due to risk for hemorrhagic transformation and/or cerebral edema, monitoring and emphasis on education to reduce stroke risk factors -dysphagia: risk for aspiration pneumonia, antibiotics and dysphagia needs -Insomnia: close monitoring of sleep/wake cycles, consideration for medication management -Pain: titration of pain medications, monitoring of respiratory drive and arousal, monitoring for side effects such as constipation -Hypotension: monitoring of orthostatics, medication management, fluid management -Mental health: coping strategies, consideration for medications - Medical Management of CHF, diuretics labs in context of renal impairment, imaging needs, volume assessment, O2 needs etc. - Coordination of interdisciplinary care in complicated neurologic rehab patient REHABILITATION PLAN: Patient's expected intensity and duration of participation in the interdisciplinary rehabilitation program and disciplines that comprise this team: Therapies required to achieve goals:The patient will benefit from integrated coordination of care from the following interdisciplinary services: Medical Supervision, 24 hours Rehabilitation Nursing, Physical Therapy, Occupational Therapy, Case Management; Speech Therapy; Social Work Frequency and duration of therapies expect to be:Expected intensity and frequency of participation in the interdisciplinary rehab program is: 3 hours of therapy 5 days per week for the duration of length of stay Expected intensity and frequency of Physical Therapy (PT): 1.5 hours per day over 5-7 days for the duration of length of stay Expected intensity and frequency of Occupational Therapy (OT): 1.5 hours per day over 5-7 days per week for the duration of length of stay Expected intensity and frequency of Speech Therapy (SALES HUNTER): 1 hour per day per day over 5-7 days per week for the duration of length of stay Positive Predictors/Potential to Benefit: Strengths: Able to tolerate intensive inpatient rehab program; Motivated; Good family/social support; Good premorbid functional status; Good premorbid medical status; Living in the community premorbidly Possible Barriers to Progress/ Discharge:Barriers: Comorbidities Hypotension, heart failure We will initiate full inpatient rehab including the following: PM&R to monitor and medically manage the patient's admitting diagnosis and comorbidities. We will monitor and treat the patient's pain appropriately to optimize participation in therapy sessions. Weekly CMP and CBC and as needed to monitor labs. Diagnostic tests/imaging will be ordered as indicated to assess changes in condition or evaluate chronic issues. Rehab Nursing for implementation of rehab plan of care, particularly in regards to bowel, bladder and skin care. Physical Therapy consult to evaluate and treat the patient to increase strength, endurance, and functional mobility. Occupational Therapy consult to evaluate and treat the patient for improving ADLs and other self-care skills and to assess for any potential need for adaptive equipment at discharge. Speech Therapy to evaluate for speech/language and swallowing deficits and treat appropriately. They will also evaluate for higher level cognitive dysfunction and offer appropriate therapies. Nutrition services to optimize patient's nutritional status for recovery given currently increased nutritional requirements due to medical illness and recovery needs. Also, nutrition to offer nutritional education due to patient's medical comorbidities which may alter metabolism and nutritional requirements. REHABILITATION GOALS: Patient's goals are to increase functional independence and mobility and to teach effective and safe ADL's/self-care skills in order for the patient to be able to safely discharge home at a more independent level. REHABILITATION POTENTIAL: Based on the patient's medical and functional status, their prognosis and expected level of functional improvement is: Medical Prognosis: Medical prognosis appears good due to ongoing medical issues and existing comorbidities Functional Prognosis: Functional prognosis appears good for patient to recover to a SBA level for overall self cares, mobility and transfers with least restrictive device ESTIMATED LENGTH OF STAY: Estimated Length of Stay in Days: Estimated Length of Stay: 14 days Anticipated Discharge Destination:Discharge Plan after IRF stay: to return home with caregiver/family assist at highest level functional independence PAIN ASSESSMENT: 04/02 This will be addressed with the pain medications as noted and adjustments to the pain regimen will be made as appropriate in order to optimize patient's participation in therapy while minimizing adverse effects related to the drugs. The information for the above history and physical was obtained through review of the patient's medical records in addition to examination on the date of admission. Opal Mace MD Physical Medicine and Rehabilitation documented in this encounter Nursing Notes * Ronald Ramirez RN - 08/12/2022 1:46 PM CDT Pt admitted and orientation given, she denies pain and discomforts at this time, reposition for comfort, skin assessment completed, orders and code status verified, call light and personal belongingsare within reach. documented in this encounter Miscellaneous Notes * Plan of Care - Mellissa Caballero RN - 08/23/2022 9:45 AM CDT Problem: Health Behavior: Goal: Understanding of discharge needs will improve Outcome: Adequate for Discharge Problem: Lack of Knowledge: Goal: Ability to state ways to decrease the risk of falls will improve Outcome: Adequate for Discharge Problem: Safety: Goal: Will remain free from falls Outcome: Adequate for Discharge Goal: Will remain free from injury from falls Outcome: Adequate for Discharge Goal: Will remain free from falls and injury in home environment Outcome: Adequate for Discharge Problem: Activity: Goal: Risk for activity intolerance will decrease Outcome: Adequate for Discharge Problem: Lack of Knowledge: Goal: Knowledge of diagnostic tests will improve Outcome: Adequate for Discharge Goal: Knowledge of disease or condition will improve Outcome: Adequate for Discharge Goal: Knowledge of safety precautions will improve Outcome: Adequate for Discharge Goal: Knowledge of the prescribed therapeutic regimen will improve Outcome: Adequate for Discharge Problem: Health Behavior: Goal: Ability to state signs and symptoms to report to health care provider will improve Outcome: Adequate for Discharge Problem: Physical Regulation: Goal: Ability to maintain clinical measurements within normal limits will improve Outcome: Adequate for Discharge Problem: Infection Risk: Goal: Will remain free from infection Outcome: Adequate for Discharge Problem: Safety: Goal: Ability to remain free from injury will improve Outcome: Adequate for Discharge Goal: Will remain free from falls Outcome: Adequate for Discharge Problem: Self-Care: Goal: Ability to participate in self-care as condition permits will improve Outcome: Adequate for Discharge Problem: Sensory: Goal: Pain level will decrease Outcome: Adequate for Discharge Goal: Ability to develop a pain control plan will improve Outcome: Adequate for Discharge Problem: Skin Integrity: Goal: Risk for impaired skin integrity will decrease Outcome: Adequate for Discharge Problem: Tissue Perfusion: Goal: Risk factors for ineffective tissue perfusion will decrease Outcome: Adequate for Discharge Problem: Activity: Goal: Mobility will improve Outcome: Adequate for Discharge Problem: Lack of Knowledge: Goal: Understanding of ways to prevent future skin breakdown will improve Outcome: Adequate for Discharge Goal: Ability to identify appropriate dietary choices will improve Outcome: Adequate for Discharge Problem: Nutritional: Goal: Dietary intake will improve Outcome: Adequate for Discharge Goal: Ability to maintain a balanced intake and output will improve Outcome: Adequate for Discharge Problem: Skin Integrity: Goal: Risk for impaired skin integrity will decrease Outcome: Adequate for Discharge Goal: Ability to demonstrate warm and dry skin will improve Outcome: Adequate for Discharge Goal: Circulation will improve to fullest extent possible Outcome: Adequate for Discharge Goals: Clinical Goals for the Shift: safety, stable vs and discharge education Summary: Patient for discharge today with family. VSS. No complaints of pain. Discharge paper /instructions given to patient/patient's family. Questions answered. Wheeled and transferred safely to private vehicle with family. * Plan of Care - Natty Christianson RN - 08/22/2022 9:28 PM CDT Summary: Problem: Health Behavior: Goal: Understanding of discharge needs will improve Outcome: Progressing Problem: Lack of Knowledge: Goal: Ability to state ways to decrease the risk of falls will improve Outcome: Progressing Problem: Safety: Goal: Will remain free from falls Outcome: Progressing Goal: Will remain free from injury from falls Outcome: Progressing Goal: Will remain free from falls and injury in home environment Outcome: Progressing Problem: Activity: Goal: Risk for activity intolerance will decrease Outcome: Progressing Problem: Lack of Knowledge: Goal: Knowledge of diagnostic tests will improve Outcome: Progressing Goal: Knowledge of disease or condition will improve Outcome: Progressing Goal: Knowledge of safety precautions will improve Outcome: Progressing Goal: Knowledge of the prescribed therapeutic regimen will improve Outcome: Progressing Problem: Health Behavior: Goal: Ability to state signs and symptoms to report to health care provider will improve Outcome: Progressing Problem: Physical Regulation: Goal: Ability to maintain clinical measurements within normal limits will improve Outcome: Progressing Problem: Infection Risk: Goal: Will remain free from infection Outcome: Progressing Problem: Safety: Goal: Ability to remain free from injury will improve Outcome: Progressing Goal: Will remain free from falls Outcome: Progressing Problem: Self-Care: Goal: Ability to participate in self-care as condition permits will improve Outcome: Progressing Problem: Sensory: Goal: Pain level will decrease Outcome: Progressing Goal: Ability to develop a pain control plan will improve Outcome: Progressing Problem: Skin Integrity: Goal: Risk for impaired skin integrity will decrease Outcome: Progressing Problem: Tissue Perfusion: Goal: Risk factors for ineffective tissue perfusion will decrease Outcome: Progressing Problem: Activity: Goal: Mobility will improve Outcome: Progressing Problem: Lack of Knowledge: Goal: Understanding of ways to prevent future skin breakdown will improve Outcome: Progressing Goal: Ability to identify appropriate dietary choices will improve Outcome: Progressing Problem: Nutritional: Goal: Dietary intake will improve Outcome: Progressing Goal: Ability to maintain a balanced intake and output will improve Outcome: Progressing Problem: Skin Integrity: Goal: Risk for impaired skin integrity will decrease Outcome: Progressing Goal: Ability to demonstrate warm and dry skin will improve Outcome: Progressing Goal: Circulation will improve to fullest extent possible Outcome: Progressing * Plan of Care - Yissel Ayers MSW - 08/22/2022 11:45 AM CDT Pt to d/c home on 08/23/22 with family to stay with her and [facility] with start of care on 08/27. Pt's dtr Chelle, ph # [phone], is the contact since she will be staying with pt the most. Follow up apts have been made. KATE Means,[facility]- [phone] * Plan of Care - Mellissa Caballero RN - 08/22/2022 10:34 AM CDT Goals: Clinical Goals for the Shift: safety and stable vs Summary: Problem: Health Behavior: Goal: Understanding of discharge needs will improve Outcome: Progressing Problem: Lack of Knowledge: Goal: Ability to state ways to decrease the risk of falls will improve Outcome: Progressing Problem: Safety: Goal: Will remain free from falls Outcome: Progressing Goal: Will remain free from injury from falls Outcome: Progressing Goal: Will remain free from falls and injury in home environment Outcome: Progressing Problem: Activity: Goal: Risk for activity intolerance will decrease Outcome: Progressing Problem: Lack of Knowledge: Goal: Knowledge of diagnostic tests will improve Outcome: Progressing Goal: Knowledge of disease or condition will improve Outcome: Progressing Goal: Knowledge of safety precautions will improve Outcome: Progressing Goal: Knowledge of the prescribed therapeutic regimen will improve Outcome: Progressing Problem: Health Behavior: Goal: Ability to state signs and symptoms to report to health care provider will improve Outcome: Progressing Problem: Physical Regulation: Goal: Ability to maintain clinical measurements within normal limits will improve Outcome: Progressing Problem: Infection Risk: Goal: Will remain free from infection Outcome: Progressing Problem: Safety: Goal: Ability to remain free from injury will improve Outcome: Progressing Goal: Will remain free from falls Outcome: Progressing Problem: Self-Care: Goal: Ability to participate in self-care as condition permits will improve Outcome: Progressing Problem: Sensory: Goal: Pain level will decrease Outcome: Progressing Goal: Ability to develop a pain control plan will improve Outcome: Progressing Problem: Skin Integrity: Goal: Risk for impaired skin integrity will decrease Outcome: Progressing Problem: Tissue Perfusion: Goal: Risk factors for ineffective tissue perfusion will decrease Outcome: Progressing Problem: Activity: Goal: Mobility will improve Outcome: Progressing Problem: Lack of Knowledge: Goal: Understanding of ways to prevent future skin breakdown will improve Outcome: Progressing Goal: Ability to identify appropriate dietary choices will improve Outcome: Progressing Problem: Nutritional: Goal: Dietary intake will improve Outcome: Progressing Goal: Ability to maintain a balanced intake and output will improve Outcome: Progressing Problem: Skin Integrity: Goal: Risk for impaired skin integrity will decrease Outcome: Progressing Goal: Ability to demonstrate warm and dry skin will improve Outcome: Progressing Goal: Circulation will improve to fullest extent possible Outcome: Progressing * Plan of Fito - Bell Moffett SLP - 08/22/2022 10:32 AM CDT Problem: Swallowing Goal: LTG - Patient will tolerate the least restrictive diet consistency to allow for safe consumption of daily meals Outcome: Adequate for Discharge Problem: Communication/Motor Speech Goal: STG - Patient will participate in oral-motor exercises to improve strength Outcome: Adequate for Discharge Goal: STG - Patient will use speech intelligibility Intervention at conversational level Outcome: Adequate for Discharge * Plan of Carol Ann Montgomery RN - 08/22/2022 4:52 AM CDT Goals: Clinical Goals for the Shift: Monitor comfort and safety Summary: Problem: Health Behavior: Goal: Understanding of discharge needs will improve Outcome: Progressing Problem: Lack of Knowledge: Goal: Ability to state ways to decrease the risk of falls will improve Outcome: Progressing Problem: Safety: Goal: Will remain free from falls Outcome: Progressing Goal: Will remain free from injury from falls Outcome: Progressing Goal: Will remain free from falls and injury in home environment Outcome: Progressing Problem: Activity: Goal: Risk for activity intolerance will decrease Outcome: Progressing Problem: Lack of Knowledge: Goal: Knowledge of diagnostic tests will improve Outcome: Progressing Goal: Knowledge of disease or condition will improve Outcome: Progressing Goal: Knowledge of safety precautions will improve Outcome: Progressing Goal: Knowledge of the prescribed therapeutic regimen will improve Outcome: Progressing Problem: Health Behavior: Goal: Ability to state signs and symptoms to report to health care provider will improve Outcome: Progressing Problem: Physical Regulation: Goal: Ability to maintain clinical measurements within normal limits will improve Outcome: Progressing Problem: Infection Risk: Goal: Will remain free from infection Outcome: Progressing Problem: Safety: Goal: Ability to remain free from injury will improve Outcome: Progressing Goal: Will remain free from falls Outcome: Progressing Problem: Self-Care: Goal: Ability to participate in self-care as condition permits will improve Outcome: Progressing Problem: Sensory: Goal: Pain level will decrease Outcome: Progressing Goal: Ability to develop a pain control plan will improve Outcome: Progressing Problem: Skin Integrity: Goal: Risk for impaired skin integrity will decrease Outcome: Progressing Problem: Tissue Perfusion: Goal: Risk factors for ineffective tissue perfusion will decrease Outcome: Progressing Problem: Activity: Goal: Mobility will improve Outcome: Progressing Problem: Lack of Knowledge: Goal: Understanding of ways to prevent future skin breakdown will improve Outcome: Progressing Goal: Ability to identify appropriate dietary choices will improve Outcome: Progressing Problem: Nutritional: Goal: Dietary intake will improve Outcome: Progressing Goal: Ability to maintain a balanced intake and output will improve Outcome: Progressing Problem: Skin Integrity: Goal: Risk for impaired skin integrity will decrease Outcome: Progressing Goal: Ability to demonstrate warm and dry skin will improve Outcome: Progressing Goal: Circulation will improve to fullest extent possible Outcome: Progressing * Plan of Care - Nayely Rivas RN - 08/21/2022 10:35 AM CDT Problem: Health Behavior: Goal: Understanding of discharge needs will improve Outcome: Progressing Problem: Lack of Knowledge: Goal: Ability to state ways to decrease the risk of falls will improve Outcome: Progressing Problem: Safety: Goal: Will remain free from falls Outcome: Progressing Goal: Will remain free from injury from falls Outcome: Progressing Goal: Will remain free from falls and injury in home environment Outcome: Progressing Problem: Activity: Goal: Risk for activity intolerance will decrease Outcome: Progressing Problem: Lack of Knowledge: Goal: Knowledge of diagnostic tests will improve Outcome: Progressing Goal: Knowledge of disease or condition will improve Outcome: Progressing Goal: Knowledge of safety precautions will improve Outcome: Progressing Goal: Knowledge of the prescribed therapeutic regimen will improve Outcome: Progressing Problem: Health Behavior: Goal: Ability to state signs and symptoms to report to health care provider will improve Outcome: Progressing Problem: Physical Regulation: Goal: Ability to maintain clinical measurements within normal limits will improve Outcome: Progressing Problem: Infection Risk: Goal: Will remain free from infection Outcome: Progressing Problem: Safety: Goal: Ability to remain free from injury will improve Outcome: Progressing Goal: Will remain free from falls Outcome: Progressing Problem: Self-Care: Goal: Ability to participate in self-care as condition permits will improve Outcome: Progressing Problem: Sensory: Goal: Pain level will decrease Outcome: Progressing Goal: Ability to develop a pain control plan will improve Outcome: Progressing Problem: Skin Integrity: Goal: Risk for impaired skin integrity will decrease Outcome: Progressing Problem: Tissue Perfusion: Goal: Risk factors for ineffective tissue perfusion will decrease Outcome: Progressing Problem: Activity: Goal: Mobility will improve Outcome: Progressing Problem: Lack of Knowledge: Goal: Understanding of ways to prevent future skin breakdown will improve Outcome: Progressing Goal: Ability to identify appropriate dietary choices will improve Outcome: Progressing Problem: Nutritional: Goal: Dietary intake will improve Outcome: Progressing Goal: Ability to maintain a balanced intake and output will improve Outcome: Progressing Problem: Skin Integrity: Goal: Risk for impaired skin integrity will decrease Outcome: Progressing Goal: Ability to demonstrate warm and dry skin will improve Outcome: Progressing Goal: Circulation will improve to fullest extent possible Outcome: Progressing Goals: Clinical Goals for the Shift: Maintain safe environment and safety with activity. Summary: Patient safety maintained and comfort monitored.Family noted at bedside daily for education. * Patient Care Conference - Yissel Ayers MSW - 08/21/2022 7:54 AM CDT Images from the original note were not included. Inpatient RehabilitationTeam Conference Note Date: 08/21/2022 Time: 7:54 AM Patient Name: Abena Giron Date of : 1940 Sex: Female Room/Bed: [facility]/CS25855 Admitting Diagnosis: Acute CVA (cerebrovascular accident) ([facility]) [I63.9] Admit Date/Time: 08/12/2022 11:56 AM Admission Comments: No comment available Rehab Diagnosis:Rehab Diagnosis: L CVA Vitals: 08/21/22 0709 BP: 115/67 Pulse: 69 Resp: 18 Temp: 36.2 ??C (97.1 ??F) SpO2: 99% Weight /Nutrition Weight: 68.5 kg (151 lb 0.2 oz) Weight change: Food consistency: Liquid consistency: Bladder and Bowel Accidents/Last BM Bowel Continence Status 08/18 0739 Always continent 08/15 0816 Always continent Pressure Ulcers None Patient Active Problem List Diagnosis Date Noted History of coronary artery stent placement 08/28/2021 Severe malnutrition (CMS/HCC) 08/20/2022 Acute CVA (cerebrovascular accident) ([facility]) 08/12/2022 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 ([facility]) 08/03/2022 Ischemic stroke ([facility]) 08/03/2022 Cardiac pacemaker in situ 09/17/2021 GENNY (obstructive sleep apnea) 09/29/2018 Sick sinus syndrome (CMS/HCC) ([facility]) 09/14/2018 B12 deficiency 12/23/2017 Abdominal aortic aneurysm (AAA) without rupture ([facility]) 06/25/2017 Anxiety 03/12/2017 Coronary artery disease involving [place] coronary artery of [place] heart 12/25/2016 Paroxysmal atrial fibrillation ([facility]/HCC) ([facility]) 12/25/2016 Chronic GERD 12/25/2016 Hypertension 01/28/2013 Hyperlipidemia 01/28/2013 Osteoarthritis 01/20/2013 Conference Led by: (Physician Name, Credentials and Specialty): Dr Opal Oneal MD,PM&R/Physical Medicine and Rehabilitation Team Members Present: Physician Landscaper: Opal Mace MD Nursing Landscaper: Nayely Rivas rewinder Landscaper: Yissel Ayers MSW PT Landscaper: Raudel Ferrara PT OT Landscaper: Other (comment) (Hiral Parks, IVAN) [employer] Landscaper: Bell Moffett SLP Patient/Family Present: Patient Present: No Patient's Family Present: No Treatment Goals: Multi-Disciplinary Problems Active Problems Problem: Health Behavior: Start Date: 08/12/22 Goal Start Date End Date Understanding of discharge needs will improve 08/12/22 -- Goal Intervention Frequency Start Date End Date Discuss information regarding discharge instructions -- 08/12/22 -- Goal Intervention Frequency Start Date End Date Identify discharge learning needs (meds, wound care, etc) -- 08/12/22 -- Goal Intervention Frequency Start Date End Date Collaborate with case management -- 08/12/22 -- Intervention Details: (Coordinate discharge planning if the patient needs post- hospital services onphysician order or complex needs related to functional status, cognitive ability, or social supportsystem) Goal Intervention Frequency Start Date End Date Arrange for needed discharge resources and transportation as appropriate -- 08/12/22 -- Goal Intervention Frequency Start Date End Date Identify discharge barriers -- 08/12/22 -- Problem: Lack of Knowledge: Start Date: 08/12/22 Goal Start Date End Date Ability to state ways to decrease the risk of falls will improve 08/12/22 -- Goal Intervention Frequency Start Date End Date Teach fall prevention measures -- 08/12/22 -- Goal Intervention Frequency Start Date End Date Teach information regarding appropriate environmental changes -- 08/12/22 -- Problem: Safety: Start Date: 08/12/22 Goal Start Date End Date Will remain free from falls 08/12/22 -- Goal Intervention Frequency Start Date End Date Assess risk factors for falls -- 08/12/22 -- Intervention Details: (including medications) Goal Intervention Frequency Start Date End Date Implement fall prevention measures -- 08/12/22 -- Goal Intervention Frequency Start Date End Date Collaborate with other disciplines -- 08/12/22 -- Intervention Details: (PT, OT, Pharmacy, MD, etc.) Goal Start Date End Date Will remain free from injury from falls 08/12/22 -- Goal Intervention Frequency Start Date End Date Provide safe environment for conduction of activities of daily living -- 08/12/22 -- Goal Start Date End Date Will remain free from falls and injury in home environment 08/12/22 -- Goal Intervention Frequency Start Date End Date Assess environmental risk factors -- 08/12/22 -- Problem: Activity: Start Date: 08/12/22 Goal Start Date End Date Risk for activity intolerance will decrease 08/12/22 -- Goal Intervention Frequency Start Date End Date Monitor signs of activity intolerance -- 08/12/22 -- Goal Intervention Frequency Start Date End Date Encourage mobilization to extent of ability -- 08/12/22 -- Problem: Lack of Knowledge: Start Date: 08/12/22 Goal Start Date End Date Knowledge of diagnostic tests will improve 08/12/22 -- Goal Intervention Frequency Start Date End Date Explain information regarding tests and procedures -- 08/12/22 -- Goal Start Date End Date Knowledge of disease or condition will improve 08/12/22 -- Goal Intervention Frequency Start Date End Date Discuss information regarding disease process or condition -- 08/12/22 -- Goal Intervention Frequency Start Date End Date Discuss information regarding pain and pain management -- 08/12/22 -- Goal Start Date End Date Knowledge of safety precautions will improve 08/12/22 -- Goal Intervention Frequency Start Date End Date Discuss fall prevention measures -- 08/12/22 -- Goal Start Date End Date Knowledge of the prescribed therapeutic regimen will improve 08/12/22 -- Goal Intervention Frequency Start Date End Date Teach information regarding medications -- 08/12/22 -- Goal Intervention Frequency Start Date End Date Explain prescribed diet -- 08/12/22 -- Problem: Health Behavior: Start Date: 08/12/22 Goal Start Date End Date Ability to state signs and symptoms to report to health care provider will improve 08/12/22 -- Goal Intervention Frequency Start Date End Date Encourage reporting changes in condition -- 08/12/22 -- Goal Intervention Frequency Start Date End Date Encourage participation in health care plan -- 08/12/22 -- Problem: Physical Regulation: Start Date: 08/12/22 Goal Start Date End Date Ability to maintain clinical measurements within normal limits will improve 08/12/22 -- Goal Intervention Frequency Start Date End Date Monitor response to treatment -- 08/12/22 -- Goal Intervention Frequency Start Date End Date Perform comparison of current condition to baseline findings -- 08/12/22 -- Goal Intervention Frequency Start Date End Date Monitor diagnostic test results -- 08/12/22 -- Problem: Infection Risk: Start Date: 08/12/22 Goal Start Date End Date Will remain free from infection 08/12/22 -- Goal Intervention Frequency Start Date End Date Encourage good hand hygiene -- 08/12/22 -- Goal Intervention Frequency Start Date End Date Provide infection prevention measures -- 08/12/22 -- Goal Intervention Frequency Start Date End Date Assess signs and symptoms of infection -- 08/12/22 -- Problem: Safety: Start Date: 08/12/22 Goal Start Date End Date Ability to remain free from injury will improve 08/12/22 -- Goal Intervention Frequency Start Date End Date Provide a safe environment -- 08/12/22 -- Goal Intervention Frequency Start Date End Date Provide surveillance of patient -- 08/12/22 -- Goal Start Date End Date Will remain free from falls 08/12/22 -- Goal Intervention Frequency Start Date End Date Assess risk factors for falls -- 08/12/22 -- Goal Intervention Frequency Start Date End Date Implement fall prevention measures -- 08/12/22 -- Problem: Self-Care: Start Date: 08/12/22 Goal Start Date End Date Ability to participate in self-care as condition permits will improve 08/12/22 -- Goal Intervention Frequency Start Date End Date Assess ability to perform activities of daily living -- 08/12/22 -- Problem: Sensory: Start Date: 08/12/22 Goal Start Date End Date Pain level will decrease 08/12/22 -- Goal Intervention Frequency Start Date End Date Assess pain status -- 08/12/22 -- Goal Intervention Frequency Start Date End Date Monitor patients response to pain management -- 08/12/22 -- Goal Start Date End Date Ability to develop a pain control plan will improve 08/12/22 -- Goal Intervention Frequency Start Date End Date Explore factors that precipitate, worsen or relieve pain or discomfort -- 08/12/22 -- Goal Intervention Frequency Start Date End Date Implement pain control measures -- 08/12/22 -- Goal Intervention Frequency Start Date End Date Explore non-pharmacologic comfort measures -- 08/12/22 -- Goal Intervention Frequency Start Date End Date Provide administration of medications prior to painful activities -- 08/12/22 -- Problem: Skin Integrity: Start Date: 08/12/22 Goal Start Date End Date Risk for impaired skin integrity will decrease 08/12/22 -- Goal Intervention Frequency Start Date End Date Assess risk factors for impaired skin integrity and/or pressure ulcers -- 08/12/22 -- Goal Intervention Frequency Start Date End Date Monitor skin integrity, appearance and/or temperature -- 08/12/22 -- Goal Intervention Frequency Start Date End Date Provide skin care -- 08/12/22 -- Goal Intervention Frequency Start Date End Date Provide repositioning -- 08/12/22 -- Problem: Tissue Perfusion: Start Date: 08/12/22 Goal Start Date End Date Risk factors for ineffective tissue perfusion will decrease 08/12/22 -- Goal Intervention Frequency Start Date End Date Assess risk for venous thromboembolism (VTE) -- 08/12/22 -- Goal Intervention Frequency Start Date End Date Encourage ambulation -- 08/12/22 -- Problem: Swallowing Start Date: 08/12/22 Goal Start Date End Date LTG - Patient will tolerate the least restrictive diet consistency to allow for safe consumption ofdaily meals 08/12/22 -- Problem: Communication/Motor Speech Start Date: 08/12/22 Goal Start Date End Date STG - Patient will participate in oral-motor exercises to improve strength 08/12/22 -- Goal Start Date End Date STG - Patient will use speech intelligibility Intervention at conversational level 08/12/22 -- Problem: PT Misc Start Date: 08/13/22 Goal Start Date End Date Patient to perform bed mobility with independence. 08/13/22 -- Goal Start Date End Date Patient to perform functional transfers with most appropriate device MOD I. 08/13/22 -- Goal Start Date End Date Patient to ambulate 150 feet with most appropriate device MOD I. 08/13/22 -- Goal Start Date End Date Patient to navigate 4 steps with supervision and most appropriate device/technique 08/13/22 -- Goal Start Date End Date Patient to improve FRANKS >30/56 08/13/22 -- Goal Start Date End Date Patient to perform HEP for BLE strength and balance with at least 10 reps each independently. 08/13/22 -- Problem: OT Misc Start Date: 08/13/22 Goal Start Date End Date [facility] 08[facility]13[facility]22 -- Goal Details: Pt. Will complete BADL routine including simulated tub/shower bathing, grooming, oralhygiene, UB/LB dressing, and footwear with MOD I one time. Goal Start Date End Date [facility] 08/13/22 -- Goal Details: Pt. Will complete toileting routine and toilet transfer with MOD I one time Goal Start Date End Date [facility] 08/13/22 -- Goal Details: Pt. Will complete functional transfers including car, tub/shower, and toilet with EV one time Goal Start Date End Date [facility] 08/13/22 -- Goal Details: Pt. Will complete UE GMC/FMC, proprioception, oculomotor, and strengthening HEP with MOD I one time Goal Start Date End Date [facility] 08/13/22 -- Goal Details: Pt. Will complete medication/bill management activity with 100% accuracy with MOD I one time Goal Start Date End Date [facility] 08/13/22 -- Goal Details: Pt. Will complete basic IADL tasks such as laundry, light meal prep, and light housekeeping with MOD I one time. Goal Start Date End Date [facility] 08/13/22 -- Goal Details: Pt. Will complete functional/meaningful activity in standing for 10+ minutes with EV one time Goal Start Date End Date [facility] 08/13/22 -- Goal Details: Pt. Will complete meaningful gardening task with MOD I one time Goal Start Date End Date [facility] 08/13/22 -- Goal Details: Pt.'s family will be present for one OT session and be aware of discharge needs/plans. Goal Start Date End Date [facility] 08/14/22 -- Goal Details: Pt. Will use compensatory strategies during visual scanning activity to item retrievewith 100% accuracy Problem: Activity: Start Date: 08/15/22 Goal Start Date End Date Mobility will improve 08/15/22 -- Goal Intervention Frequency Start Date End Date Encourage mobilization to extent of ability -- 08/15/22 -- Goal Intervention Frequency Start Date End Date Perform repositioning -- 08/15/22 -- Goal Intervention Frequency Start Date End Date Collaborate with physical therapy -- 08/15/22 -- Problem: Lack of Knowledge: Start Date: 08/15/22 Goal Start Date End Date Understanding of ways to prevent future skin breakdown will improve 08/15/22 -- Goal Intervention Frequency Start Date End Date Discuss precautions to protect skin integrity -- 08/15/22 -- Goal Intervention Frequency Start Date End Date Discuss treatment plan for related conditions -- 08/15/22 -- Goal Start Date End Date Ability to identify appropriate dietary choices will improve 08/15/22 -- Goal Intervention Frequency Start Date End Date Discuss dietary adjustments -- 08/15/22 -- Problem: Nutritional: Start Date: 08/15/22 Goal Start Date End Date Dietary intake will improve 08/15/22 -- Goal Intervention Frequency Start Date End Date Assess nutritional status -- 08/15/22 -- Goal Intervention Frequency Start Date End Date Collaborate with dietitian -- 08/15/22 -- Goal Intervention Frequency Start Date End Date Assist with appropriate dietary choices -- 08/15/22 -- Goal Start Date End Date Ability to maintain a balanced intake and output will improve 08/15/22 -- Goal Intervention Frequency Start Date End Date Assess intake and output -- 08/15/22 -- Problem: Skin Integrity: Start Date: 08/15/22 Goal Start Date End Date Risk for impaired skin integrity will decrease 08/15/22 -- Goal Intervention Frequency Start Date End Date Identify risk factors for impaired skin integrity and/or pressure injuries -- 08/15/22 -- Goal Intervention Frequency Start Date End Date Monitor medication effects -- 08/15/22 -- Goal Intervention Frequency Start Date End Date Implement precautions to protect skin integrity -- 08/15/22 -- Goal Intervention Frequency Start Date End Date Use moisturizing agent to dry skin -- 08/15/22 -- Goal Intervention Frequency Start Date End Date Perform cleansing of skin when soiled -- 08/15/22 -- Goal Intervention Frequency Start Date End Date Provide pressure-relief bed or mattress -- 08/15/22 -- Goal Start Date End Date Ability to demonstrate warm and dry skin will improve 08/15/22 -- Goal Intervention Frequency Start Date End Date Monitor skin integrity, appearance and/or temperature -- 08/15/22 -- Goal Start Date End Date Circulation will improve to fullest extent possible 08/15/22 -- Goal Intervention Frequency Start Date End Date Assess circulation, sensation and/or motion of extremity -- 08/15/22 -- Current functional status: ADL: OT Functional Mobility: 08/13 transfers: MIN/CGA (08/13/2022 10:10 AM) OT Self Care: 08/13 bathing/toileting CGA, UB/LB dressing/footwear MIN, oral hygiene/grooming Set-up(08/13/2022 10:10 AM) OT Cognition: WFL (08/13/2022 10:10 AM) OT Communication: Some expressive aphasia (08/13/2022 10:10 AM) Mobility/Transfers: PT Functional Mobility: 08/20/22 Bed Mobility: supine to and from sit with supervision assist Transfers: sit to and from stand with CG/SBA with cues for hand placement and safety. Transfers wheelchairto recliner chair CG assist, stand pivot transfer Ambulation: wheeled walker 80'x1, 25'x2, 20'x2 CGassist with decreased kimberly, decreased right foot clearance, decreased right heel strike and pushoff, flexed posture, downward gaze Stairs: 4 stairs with left handrail ascending CG/Min assist leading with right LE, descending with right handrail leading with left LE min assist. Wheelchair management & propulsion: using left UE and SHAYAN LE's 40'x1 and supervision assist with patient needing i ncreased time to complete task. (08/20/2022 12:44 PM) Cognition/Communication/Swallowing: SALES HUNTER Cognition: oriented x3 (08/12/2022 2:00 PM) [employer]TER Communication: word finding deficits and dysarthria (08/12/2022 2:00 PM) [employer]TER Swallowing: assessed at . Patient with oral dysphagia/puree diet/thin liquids. (08/12/2022 2:00 PM) Issues/Consults: Family Issues/Concerns Family Responsibilities: home alone Work: n/a Caregiver for Others: n/a Children at Home Ages: n/a Limited Support System: has four supportive daughters Financial Resources: SSI School: n/a Other Issues: n/a Family Education/Participation Family Participation Plan: To be determined Caregiver at Discharge: home with family assist Living Setting at Discharge: Patient expects to be discharged to:: Private residence Therapy needed: None Steps: Steps in home?: Yes, Outside of home, Yes, Inside home,Number of steps inside: 9 steps (steps to the basement.),Number of steps outside: 3 steps (3 steps in front and 3 in back) Premorbid DME: none Anticipated Discharge Date: 08/23/22 Potential Custodial Needs/Follow-up: Potential Coagulation Operator Needs: Therapies,Community Resources: To be determined Consults/Referrals: Home Health Anticipated Supervision:home with family/hhc vs outpt therapy Anticipated Equipment Needs: PT: Wheeled walker OT: wheeled walker , shower chair and associate counsel Strengths to Achieving Rehab Goals: see notes below Barriers to Achieving Rehab Goals: see notes below Medical Barriers: Nayely Rivas RN Registered Nurse Nursing Plan of Care Signed Date of Service: 08/21/2022 10:35 AM Signed Problem: Health Behavior: Goal: Understanding of discharge needs will improve Outcome: Progressing Problem: Lack of Knowledge: Goal: Ability to state ways to decrease the risk of falls will improve Outcome: Progressing Problem: Safety: Goal: Will remain free from falls Outcome: Progressing Goal: Will remain free from injury from falls Outcome: Progressing Goal: Will remain free from falls and injury in home environment Outcome: Progressing Problem: Activity: Goal: Risk for activity intolerance will decrease Outcome: Progressing Problem: Lack of Knowledge: Goal: Knowledge of diagnostic tests will improve Outcome: Progressing Goal: Knowledge of disease or condition will improve Outcome: Progressing Goal: Knowledge of safety precautions will improve Outcome: Progressing Goal: Knowledge of the prescribed therapeutic regimen will improve Outcome: Progressing Problem: Health Behavior: Goal: Ability to state signs and symptoms to report to health care provider will improve Outcome: Progressing Problem: Physical Regulation: Goal: Ability to maintain clinical measurements within normal limits will improve Outcome: Progressing Problem: Infection Risk: Goal: Will remain free from infection Outcome: Progressing Problem: Safety: Goal: Ability to remain free from injury will improve Outcome: Progressing Goal: Will remain free from falls Outcome: Progressing Problem: Self-Care: Goal: Ability to participate in self-care as condition permits will improve Outcome: Progressing Problem: Sensory: Goal: Pain level will decrease Outcome: Progressing Goal: Ability to develop a pain control plan will improve Outcome: Progressing Problem: Skin Integrity: Goal: Risk for impaired skin integrity will decrease Outcome: Progressing Problem: Tissue Perfusion: Goal: Risk factors for ineffective tissue perfusion will decrease Outcome: Progressing Problem: Activity: Goal: Mobility will improve Outcome: Progressing Problem: Lack of Knowledge: Goal: Understanding of ways to prevent future skin breakdown will improve Outcome: Progressing Goal: Ability to identify appropriate dietary choices will improve Outcome: Progressing Problem: Nutritional: Goal: Dietary intake will improve Outcome: Progressing Goal: Ability to maintain a balanced intake and output will improve Outcome: Progressing Problem: Skin Integrity: Goal: Risk for impaired skin integrity will decrease Outcome: Progressing Goal: Ability to demonstrate warm and dry skin will improve Outcome: Progressing Goal: Circulation will improve to fullest extent possible Outcome: Progressing Goals: Clinical Goals for the Shift: Maintain safe environment and safety with activity. Summary: Patient safety maintained and comfort monitored.Family noted at bedside daily for education. Weekly Team Goals: Bell Moffett SLP Speech and Language Pathologist Specialty: Speech Therapy Plan of Care Signed Date of Service: 08/21/2022 7:25 AM Signed Problem: Swallowing Goal: LTG - Patient will tolerate the least restrictive diet consistency to allow for safe consumption of daily meals Outcome: Progressing Current Functional Status: SALES HUNTER Cognition: oriented x3 SALES HUNTER Communication: word finding deficits and dysarthria SAL[employer]UNTER Swallowing: assessed at . Patient with oral dysphagia/puree diet/thin liquids. Barriers: anxiety,oral dysphagia Overcoming Barriers: trials with pail bailer, oral exercises Problem: Communication/Motor Speech Goal: STG - Patient will participate in oral-motor exercises to improve strength Outcome: Progressing Current Functional Status: SALES HUNTER Cognition: oriented x3 SALES HUNTER Communication: word finding deficits and dysarthria [employer]TER Swallowing: assessed at . Patient with oral dysphagia/puree diet/thin liquids. Barriers: oral weakness Overcoming Barriers: use of mirror Goal: STG - Patient will use speech intelligibility Intervention at conversational level Outcome: Progressing Current Functional Status: SALES HUNTER Cognition: oriented x3 SALES HUNTER Communication: word finding deficits and dysarthria [employer]TER Swallowing: assessed at . Patient with oral dysphagia/puree diet/thin liquids. Barriers: dysarthria Overcoming Barriers: oral exercises, dysarthria drill Lenka Perez PTA [facility] Plan of Care Signed Date of Service: 08/20/2022 4:58 PM Signed Problem: PT Misc Goal: Patient to perform bed mobility with independence. Outcome: Progressing Goal: Patient to perform functional transfers with most appropriate device MOD I. Outcome: Progressing Goal: Patient to ambulate 150 feet with most appropriate device MOD I. Outcome: Progressing Goal: Patient to navigate 4 steps with supervision and most appropriate device/technique Outcome: Progressing Goal: Patient to improve FRANKS >30/56 Outcome: Progressing Goal: Patient to perform HEP for BLE strength and balance with at least 10 reps each independently. Outcome: Progressing Current Functional Status: PT Functional Mobility: 08/20/22 Bed Mobility: supine to and from sit with supervision assist Transfers: sit to and from stand with CG/SBA with cues for hand placement and safety. Transfers wheelchair to recliner chair CG assist, stand pivot transfer Ambulation: wheeled walker 80'x1, 25'x2, 20'x2 CG assist with decreased kimberly, decreased right foot clearance, decreasedright heel strike and push off, flexed posture, downward gaze Stairs: 4 stairs with left handrail ascending CG/Min assist leading with right LE, descending with right handrail leading with left LE min assist. Wheelchair management & propulsion: using left UE and SHAYAN LE's 40'x1 and supervision assist with patient needing increased time to complete task. Strengths: able to tolerate inpatient rehab, good premorbid functional status, good premorbid medical status, living in community premorbidly, and motivated Barriers: language impairment, weakness, limited safety awareness, decreased endurance, and impaired balance Overcoming Barriers: strengthening, gait training, transfer training, balance, and safety education, family education Equipment Recommendations: wheeled walker I have read and agree with the above documentation. Plan of Care remains appropriate at this time. Raudel Ferrara, PT 08/21/22 7:38 AM Mariah Tripp COTA Kst Operator Occupational Therapy Progress Notes Signed Date of Service: 08/20/2022 11:26 AM Signed Occupational Therapy NOTE / SESSION TYPE: OT ROUNDS UPDATE PATIENT'S NAME: Abena Giron AGE / SEX: 82 y.o. / female ROOM: [place] [id number] : 1940 DATE: 08/20/22 Multi-Disciplinary Problems (from Occupational Therapy) Active Problems Problem: OT [facility] Start Date: 08/13/22 Goal Start Date Expected End Date End Date [facility] 08/13/22 08/26/22 -- Goal Details: Pt. Will complete BADL routine including simulated tub/shower bathing, grooming, oralhygiene, UB/LB dressing, and footwear with MOD I one time. Goal Start Date Expected End Date End Date [facility] 08/13/22 08/26/22 -- Goal Details: Pt. Will complete toileting routine and toilet transfer with MOD I one time Goal Start Date Expected End Date End Date [facility] 08/13/22 08/26/22 -- Goal Details: Pt. Will complete functional transfers including car, tub/shower, and toilet with EV one time Goal Start Date Expected End Date End Date [facility] 08/13/22 08/26/22 -- Goal Details: Pt. Will complete UE GMC/FMC, proprioception, oculomotor, and strengthening HEP with MOD I one time Goal Start Date Expected End Date End Date [facility] 08/13/22 08/26/22 -- Goal Details: Pt. Will complete medication/bill management activity with 100% accuracy with MOD I one time Goal Start Date Expected End Date End Date [facility] 08/13/22 08/26/22 -- Goal Details: Pt. Will complete basic IADL tasks such as laundry, light meal prep, and light housekeeping with MOD I one time. Goal Start Date Expected End Date End Date [facility] 08/13/22 08/26/22 -- Goal Details: Pt. Will complete functional/meaningful activity in standing for 10+ minutes with EV one time Goal Start Date Expected End Date End Date [facility] 08/13/22 08/26/22 -- Goal Details: Pt. Will complete meaningful gardening task with MOD I one time Goal Start Date Expected End Date End Date [facility] 08/13/22 08/26/22 -- Goal Details: Pt.'s family will be present for one OT session and be aware of discharge needs/plans. Goal Start Date Expected End Date End Date OT LTG - [facility] 08/14/22 08/26/22 -- Goal Details: Pt. Will use compensatory strategies during visual scanning activity to item retrievewith 100% accuracy CURRENT FUNCTIONAL STATUS: Transfers: CGA Bathing: CGA Oral Hygiene: Set-up Grooming: Set-up UB dressing: MIN LB dressing: MIN Footwear: SPV Toileting: CGA STRENGTHS: MOTIVATED, GOOD FAMILY / SOCIAL SUPPORT, ABLE TO TOLERATE INPATIENT REHAB, GOOD PREMORBID FUNCTIONAL STATUS, and LIVING IN THE COMMUNITY PREMORBIDLY BARRIERS: DECREASED ACTIVITY TOLERANCE, DECREASED UE ROM / STRENGTH / COORDINATION, DECREASED MOBILITY, DECREASED BALANCE, and LANGUAGE IMPAIRMENT OVERCOMING BARRIERS: ADL training, Compensatory ADL strategies, Balance activities, Functional transfer training, UE home exercise program education, Family training as appropriate, IADL training, and Energy conservation techniques EQUIPMENT RECOMMENDED FOR DISCHARGE: WHEELED WALKER, SHOWER CHAIR, and TONG HOOKER TARA Treviño 08/20/22 11:26 AM . Clinical Summation since admission: Cosigned by Opal Mace MD at 08/21/2022 2:04 PM CDT Associated attestation - Opal Mace MD - 08/21/2022 2:04 PM CDT I was present for the meeting and agree. 08/21/22 Progress: progressing, anxious with upgrading diet DC Date: Wednesday 08/23 with home health PT, OT, SALES HUNTER DME: tbd * Plan of Care - Bell Moffett SLP - 08/21/2022 7:25 AM CDT Problem: Swallowing Goal: LTG - Patient will tolerate the least restrictive diet consistency to allow for safe consumption of daily meals Outcome: Progressing Current Functional Status: SALES HUNTER Cognition: oriented x3 SALES HUNTER Communication: word finding deficits and dysarthria SAL[employer] HUNTER Swallowing: assessed at . Patient with oral dysphagia/puree diet/thin liquids. Barriers: anxiety,oral dysphagia Overcoming Barriers: trials with pail bailer, oral exercises Problem: Communication/Motor Speech Goal: STG - Patient will participate in oral-motor exercises to improve strength Outcome: Progressing Current Functional Status: SALES HUNTER Cognition: oriented x3 SALES HUNTER Communication: word finding deficits and dysarthria SAL[employer]UNTER Swallowing: assessed at . Patient with oral dysphagia/puree diet/thin liquids. Barriers: oral weakness Overcoming Barriers: use of mirror Goal: STG - Patient will use speech intelligibility Intervention at conversational level Outcome: Progressing Current Functional Status: SALES HUNTER Cognition: oriented x3 SALES HUNTER Communication: word finding deficits and dysarthria SALES HUNTER Swallowing: assessed at . Patient with oral dysphagia/puree diet/thin liquids. Barriers: dysarthria Overcoming Barriers: oral exercises, dysarthria drill * Plan of Care - Thelma Ferrara RN - 08/21/2022 2:43 AM CDT Clinical Goals for the Shift: Maintain safe environment and safety with activity. Problem: Health Behavior: Goal: Understanding of discharge needs will improve Outcome: Progressing Problem: Lack of Knowledge: Goal: Ability to state ways to decrease the risk of falls will improve Outcome: Progressing Problem: Safety: Goal: Will remain free from falls Outcome: Progressing Goal: Will remain free from injury from falls Outcome: Progressing Goal: Will remain free from falls and injury in home environment Outcome: Progressing Problem: Activity: Goal: Risk for activity intolerance will decrease Outcome: Progressing Problem: Lack of Knowledge: Goal: Knowledge of diagnostic tests will improve Outcome: Progressing Goal: Knowledge of disease or condition will improve Outcome: Progressing Goal: Knowledge of safety precautions will improve Outcome: Progressing Goal: Knowledge of the prescribed therapeutic regimen will improve Outcome: Progressing Problem: Health Behavior: Goal: Ability to state signs and symptoms to report to health care provider will improve Outcome: Progressing Problem: Physical Regulation: Goal: Ability to maintain clinical measurements within normal limits will improve Outcome: Progressing Problem: Infection Risk: Goal: Will remain free from infection Outcome: Progressing Problem: Safety: Goal: Ability to remain free from injury will improve Outcome: Progressing Goal: Will remain free from falls Outcome: Progressing Problem: Self-Care: Goal: Ability to participate in self-care as condition permits will improve Outcome: Progressing Problem: Sensory: Goal: Pain level will decrease Outcome: Progressing Goal: Ability to develop a pain control plan will improve Outcome: Progressing Problem: Skin Integrity: Goal: Risk for impaired skin integrity will decrease Outcome: Progressing Problem: Tissue Perfusion: Goal: Risk factors for ineffective tissue perfusion will decrease Outcome: Progressing Problem: Activity: Goal: Mobility will improve Outcome: Progressing Problem: Lack of Knowledge: Goal: Understanding of ways to prevent future skin breakdown will improve Outcome: Progressing Goal: Ability to identify appropriate dietary choices will improve Outcome: Progressing Problem: Nutritional: Goal: Dietary intake will improve Outcome: Progressing Goal: Ability to maintain a balanced intake and output will improve Outcome: Progressing Problem: Skin Integrity: Goal: Risk for impaired skin integrity will decrease Outcome: Progressing Goal: Ability to demonstrate warm and dry skin will improve Outcome: Progressing Goal: Circulation will improve to fullest extent possible Outcome: Progressing * Plan of Care - Lenka Perez PTA - 08/20/2022 4:58 PM CDT Problem: PT Misc Goal: Patient to perform bed mobility with independence. Outcome: Progressing Goal: Patient to perform functional transfers with most appropriate device MOD I. Outcome: Progressing Goal: Patient to ambulate 150 feet with most appropriate device MOD I. Outcome: Progressing Goal: Patient to navigate 4 steps with supervision and most appropriate device/technique Outcome: Progressing Goal: Patient to improve FRANKS >30/56 Outcome: Progressing Goal: Patient to perform HEP for BLE strength and balance with at least 10 reps each independently. Outcome: Progressing Current Functional Status: PT Functional Mobility: 08/20/22 Bed Mobility: supine to and from sit with supervision assist Transfers: sit to and from stand with CG/SBA with cues for hand placement and safety. Transfers wheelchair to recliner chair CG assist, stand pivot transfer Ambulation: wheeled walker 80'x1, 25'x2, 20'x2 CG assist with decreased kimberly, decreased right foot clearance, decreasedright heel strike and push off, flexed posture, downward gaze Stairs: 4 stairs with left handrail ascending CG/Min assist leading with right LE, descending with right handrail leading with left LE min assist. Wheelchair management & propulsion: using left UE and SHAYAN LE's 40'x1 and supervision assist with patient needing increased time to complete task. Strengths: able to tolerate inpatient rehab, good premorbid functional status, good premorbid medical status, living in community premorbidly, and motivated Barriers: language impairment, weakness, limited safety awareness, decreased endurance, and impaired balance Overcoming Barriers: strengthening, gait training, transfer training, balance, and safety education, family education Equipment Recommendations: wheeled walker I have read and agree with the above documentation. Plan of Care remains appropriate at this time. Raudel Ferrara, PT 08/21/22 7:38 AM * Plan of Care - Yissel Ayers MSW - 08/20/2022 9:13 AM CDT Sujata met with pt and dtr at the bedside to discuss d/c plans. Dtr asking about choreworker assistance. Pt currently doesn't have medicaid and per pt doesn't qualify. Per dtr there is a friend of the family that is a therapist. She will find out what agency she is with and let sujata know. Sujata also discussed hhc vs outpt therapy. Dtr and pt to discuss with other family members. Family currently has the first two weeks home covered working on the rest. One of the daughters was considering quitting her job. Sw to continue to follow. KATE Means,[facility] [phone] * Plan of Care - Ronald Ramirez RN - 08/20/2022 9:07 AM CDT Goals: Clinical Goals for the Shift: Maintain safe environment and safety with activity. Problem: Lack of Knowledge: Goal: Ability to state ways to decrease the risk of falls will improve Outcome: Progressing Problem: Safety: Goal: Will remain free from falls Outcome: Progressing Goal: Will remain free from injury from falls Outcome: Progressing Goal: Will remain free from falls and injury in home environment Outcome: Progressing * Plan of Care - Thelma Ferrara RN - 08/20/2022 4:56 AM CDT Clinical Goals for the Shift: Maintain safe environment and safety with activity. Problem: Health Behavior: Goal: Understanding of discharge needs will improve Outcome: Progressing Problem: Lack of Knowledge: Goal: Ability to state ways to decrease the risk of falls will improve Outcome: Progressing Problem: Safety: Goal: Will remain free from falls Outcome: Progressing Goal: Will remain free from injury from falls Outcome: Progressing Goal: Will remain free from falls and injury in home environment Outcome: Progressing Problem: Activity: Goal: Risk for activity intolerance will decrease Outcome: Progressing Problem: Lack of Knowledge: Goal: Knowledge of diagnostic tests will improve Outcome: Progressing Goal: Knowledge of disease or condition will improve Outcome: Progressing Goal: Knowledge of safety precautions will improve Outcome: Progressing Goal: Knowledge of the prescribed therapeutic regimen will improve Outcome: Progressing Problem: Health Behavior: Goal: Ability to state signs and symptoms to report to health care provider will improve Outcome: Progressing Problem: Physical Regulation: Goal: Ability to maintain clinical measurements within normal limits will improve Outcome: Progressing Problem: Infection Risk: Goal: Will remain free from infection Outcome: Progressing Problem: Safety: Goal: Ability to remain free from injury will improve Outcome: Progressing Goal: Will remain free from falls Outcome: Progressing Problem: Self-Care: Goal: Ability to participate in self-care as condition permits will improve Outcome: Progressing Problem: Sensory: Goal: Pain level will decrease Outcome: Progressing Goal: Ability to develop a pain control plan will improve Outcome: Progressing Problem: Skin Integrity: Goal: Risk for impaired skin integrity will decrease Outcome: Progressing Problem: Tissue Perfusion: Goal: Risk factors for ineffective tissue perfusion will decrease Outcome: Progressing Problem: Activity: Goal: Mobility will improve Outcome: Progressing Problem: Lack of Knowledge: Goal: Understanding of ways to prevent future skin breakdown will improve Outcome: Progressing Goal: Ability to identify appropriate dietary choices will improve Outcome: Progressing Problem: Nutritional: Goal: Dietary intake will improve Outcome: Progressing Goal: Ability to maintain a balanced intake and output will improve Outcome: Progressing Problem: Skin Integrity: Goal: Risk for impaired skin integrity will decrease Outcome: Progressing Goal: Ability to demonstrate warm and dry skin will improve Outcome: Progressing Goal: Circulation will improve to fullest extent possible Outcome: Progressing * Plan of Care - Beatriz Corral RN - 08/19/2022 12:59 PM CDT Problem: Health Behavior: Goal: Understanding of discharge needs will improve Outcome: Progressing Problem: Lack of Knowledge: Goal: Ability to state ways to decrease the risk of falls will improve Outcome: Progressing Problem: Safety: Goal: Will remain free from falls Outcome: Progressing Goal: Will remain free from injury from falls Outcome: Progressing Goal: Will remain free from falls and injury in home environment Outcome: Progressing Problem: Activity: Goal: Risk for activity intolerance will decrease Outcome: Progressing Problem: Lack of Knowledge: Goal: Knowledge of diagnostic tests will improve Outcome: Progressing Goal: Knowledge of disease or condition will improve Outcome: Progressing Goal: Knowledge of safety precautions will improve Outcome: Progressing Goal: Knowledge of the prescribed therapeutic regimen will improve Outcome: Progressing Problem: Health Behavior: Goal: Ability to state signs and symptoms to report to health care provider will improve Outcome: Progressing Problem: Physical Regulation: Goal: Ability to maintain clinical measurements within normal limits will improve Outcome: Progressing Problem: Infection Risk: Goal: Will remain free from infection Outcome: Progressing Problem: Safety: Goal: Ability to remain free from injury will improve Outcome: Progressing Goal: Will remain free from falls Outcome: Progressing Problem: Self-Care: Goal: Ability to participate in self-care as condition permits will improve Outcome: Progressing Problem: Sensory: Goal: Pain level will decrease Outcome: Progressing Goal: Ability to develop a pain control plan will improve Outcome: Progressing Problem: Skin Integrity: Goal: Risk for impaired skin integrity will decrease Outcome: Progressing Problem: Tissue Perfusion: Goal: Risk factors for ineffective tissue perfusion will decrease Outcome: Progressing Problem: Activity: Goal: Mobility will improve Outcome: Progressing Problem: Lack of Knowledge: Goal: Understanding of ways to prevent future skin breakdown will improve Outcome: Progressing Goal: Ability to identify appropriate dietary choices will improve Outcome: Progressing Problem: Nutritional: Goal: Dietary intake will improve Outcome: Progressing Goal: Ability to maintain a balanced intake and output will improve Outcome: Progressing Problem: Skin Integrity: Goal: Risk for impaired skin integrity will decrease Outcome: Progressing Goal: Ability to demonstrate warm and dry skin will improve Outcome: Progressing Goal: Circulation will improve to fullest extent possible Outcome: Progressing Goals: Clinical Goals for the Shift: Maintain safe environment and safety with activity. Summary: Continued safety, and medication education. * Plan of Care - Amalia Gunn RN - 08/19/2022 5:05 AM CDT Goals: Clinical Goals for the Shift: Maintain safe environment and safety with activity. Summary: Problem: Health Behavior: Goal: Understanding of discharge needs will improve Outcome: Progressing Problem: Lack of Knowledge: Goal: Ability to state ways to decrease the risk of falls will improve Outcome: Progressing Problem: Safety: Goal: Will remain free from falls Outcome: Progressing Goal: Will remain free from injury from falls Outcome: Progressing Goal: Will remain free from falls and injury in home environment Outcome: Progressing Problem: Activity: Goal: Risk for activity intolerance will decrease Outcome: Progressing Problem: Lack of Knowledge: Goal: Knowledge of diagnostic tests will improve Outcome: Progressing Goal: Knowledge of disease or condition will improve Outcome: Progressing Goal: Knowledge of safety precautions will improve Outcome: Progressing Goal: Knowledge of the prescribed therapeutic regimen will improve Outcome: Progressing Problem: Health Behavior: Goal: Ability to state signs and symptoms to report to health care provider will improve Outcome: Progressing Problem: Physical Regulation: Goal: Ability to maintain clinical measurements within normal limits will improve Outcome: Progressing Problem: Infection Risk: Goal: Will remain free from infection Outcome: Progressing Problem: Safety: Goal: Ability to remain free from injury will improve Outcome: Progressing Goal: Will remain free from falls Outcome: Progressing Problem: Self-Care: Goal: Ability to participate in self-care as condition permits will improve Outcome: Progressing Problem: Sensory: Goal: Pain level will decrease Outcome: Progressing Goal: Ability to develop a pain control plan will improve Outcome: Progressing Problem: Skin Integrity: Goal: Risk for impaired skin integrity will decrease Outcome: Progressing Problem: Tissue Perfusion: Goal: Risk factors for ineffective tissue perfusion will decrease Outcome: Progressing Problem: Activity: Goal: Mobility will improve Outcome: Progressing Problem: Lack of Knowledge: Goal: Understanding of ways to prevent future skin breakdown will improve Outcome: Progressing Goal: Ability to identify appropriate dietary choices will improve Outcome: Progressing Problem: Nutritional: Goal: Dietary intake will improve Outcome: Progressing Goal: Ability to maintain a balanced intake and output will improve Outcome: Progressing Problem: Skin Integrity: Goal: Risk for impaired skin integrity will decrease Outcome: Progressing Goal: Ability to demonstrate warm and dry skin will improve Outcome: Progressing Goal: Circulation will improve to fullest extent possible Outcome: Progressing * Plan of Care - Ronald Ramirez RN - 08/18/2022 3:56 PM CDT Problem: Activity: Goal: Risk for activity intolerance will decrease Outcome: Progressing Problem: Safety: Goal: Ability to remain free from injury will improve Outcome: Progressing Goal: Will remain free from falls Outcome: Progressing Problem: Self-Care: Goal: Ability to participate in self-care as condition permits will improve Outcome: Progressing Goals: Clinical Goals for the Shift: medication administration, safety, and dietary precaution * Plan of Care - Yessy Galvan RN - 08/17/2022 10:03 PM CDT Problem: Health Behavior: Goal: Understanding of discharge needs will improve Outcome: Not Progressing Problem: Lack of Knowledge: Goal: Ability to state ways to decrease the risk of falls will improve Outcome: Not Progressing Problem: Safety: Goal: Will remain free from falls Outcome: Not Progressing Goal: Will remain free from injury from falls Outcome: Not Progressing Goal: Will remain free from falls and injury in home environment Outcome: Not Progressing Problem: Activity: Goal: Risk for activity intolerance will decrease Outcome: Not Progressing Problem: Lack of Knowledge: Goal: Knowledge of diagnostic tests will improve Outcome: Not Progressing Goal: Knowledge of disease or condition will improve Outcome: Not Progressing Goal: Knowledge of safety precautions will improve Outcome: Not Progressing Goal: Knowledge of the prescribed therapeutic regimen will improve Outcome: Not Progressing Problem: Health Behavior: Goal: Ability to state signs and symptoms to report to health care provider will improve Outcome: Not Progressing Problem: Physical Regulation: Goal: Ability to maintain clinical measurements within normal limits will improve Outcome: Not Progressing Problem: Infection Risk: Goal: Will remain free from infection Outcome: Not Progressing Problem: Safety: Goal: Ability to remain free from injury will improve Outcome: Not Progressing Goal: Will remain free from falls Outcome: Not Progressing Problem: Self-Care: Goal: Ability to participate in self-care as condition permits will improve Outcome: Not Progressing Problem: Sensory: Goal: Pain level will decrease Outcome: Not Progressing Goal: Ability to develop a pain control plan will improve Outcome: Not Progressing Problem: Skin Integrity: Goal: Risk for impaired skin integrity will decrease Outcome: Not Progressing Problem: Tissue Perfusion: Goal: Risk factors for ineffective tissue perfusion will decrease Outcome: Not Progressing Problem: Activity: Goal: Mobility will improve Outcome: Not Progressing Problem: Lack of Knowledge: Goal: Understanding of ways to prevent future skin breakdown will improve Outcome: Not Progressing Goal: Ability to identify appropriate dietary choices will improve Outcome: Not Progressing Problem: Nutritional: Goal: Dietary intake will improve Outcome: Not Progressing Goal: Ability to maintain a balanced intake and output will improve Outcome: Not Progressing Problem: Skin Integrity: Goal: Risk for impaired skin integrity will decrease Outcome: Not Progressing Goal: Ability to demonstrate warm and dry skin will improve Outcome: Not Progressing Goal: Circulation will improve to fullest extent possible Outcome: Not Progressing Goals: Clinical Goals for the Shift: medication administration, safety, and dietary precaution Summary: * Plan of Care - Ronald Ramirez RN - 08/17/2022 11:28 AM CDT Goals: Clinical Goals for the Shift: medication administration, safety, and dietary precaution Problem: Safety: Goal: Will remain free from falls Outcome: Progressing Goal: Will remain free from injury from falls Outcome: Progressing Goal: Will remain free from falls and injury in home environment Outcome: Progressing Problem: Activity: Goal: Risk for activity intolerance will decrease Outcome: Progressing Problem: Activity: Goal: Risk for activity intolerance will decrease Outcome: Progressing * Plan of Care - Kayla Poe RN - 08/17/2022 5:21 AM CDT Goals: Clinical Goals for the Shift: medication administration, safety, and dietary precaution Summary: Patient remained safe/free from falls while using assistive devices when transfering * Plan of Care - Latonia Lopez RN - 08/16/2022 3:31 PM CDT Problem: Health Behavior: Goal: Understanding of discharge needs will improve 08/16/2022 1530 by Latonia Lopez RN Outcome: Progressing 08/16/2022 1530 by Latonia Lopez RN Outcome: Progressing Problem: Lack of Knowledge: Goal: Ability to state ways to decrease the risk of falls will improve 08/16/2022 1530 by Latonia Lopez RN Outcome: Progressing 08/16/2022 1530 by Latonia Lopez RN Outcome: Progressing Problem: Safety: Goal: Will remain free from falls 08/16/2022 1530 by Latonia Lopez RN Outcome: Progressing 08/16/2022 1530 by Latonia Lopez RN Outcome: Progressing Goal: Will remain free from injury from falls 08/16/2022 1530 by Latonia Lopez RN Outcome: Progressing 08/16/2022 1530 by Latonia Lopez RN Outcome: Progressing Goal: Will remain free from falls and injury in home environment 08/16/2022 1530 by Latonia Lopez RN Outcome: Progressing 08/16/2022 1530 by Latonia Lopez RN Outcome: Progressing Problem: Activity: Goal: Risk for activity intolerance will decrease 08/16/2022 1530 by Latonia Lopez RN Outcome: Progressing 08/16/2022 1530 by Latonia Lopez RN Outcome: Progressing Problem: Lack of Knowledge: Goal: Knowledge of diagnostic tests will improve Outcome: Progressing Goal: Knowledge of disease or condition will improve Outcome: Progressing Goal: Knowledge of safety precautions will improve Outcome: Progressing Goal: Knowledge of the prescribed therapeutic regimen will improve Outcome: Progressing Problem: Health Behavior: Goal: Ability to state signs and symptoms to report to health care provider will improve Outcome: Progressing Goals: Clinical Goals for the Shift: medication administration, safety, and dietary precaution Summary: Patient is participating therapy. No changes in physical assessment. Problem: Physical Regulation: Goal: Ability to maintain clinical measurements within normal limits will improve Outcome: Progressing Problem: Infection Risk: Goal: Will remain free from infection Outcome: Progressing * Plan of Care - Bell Moffett SLP - 08/16/2022 8:56 AM CDT Problem: Swallowing Goal: LTG - Patient will tolerate the least restrictive diet consistency to allow for safe consumption of daily meals Outcome: Progressing Problem: Communication/Motor Speech Goal: STG - Patient will participate in oral-motor exercises to improve strength Outcome: Progressing Goal: STG - Patient will identify and utilize word retrieval Intervention in structured tasks Outcome: Progressing Goal: STG - Patient will use speech intelligibility Intervention at conversational level Outcome: Progressing * Plan of Care - Cassi Dumont RN - 08/16/2022 12:53 AM CDT Problem: Health Behavior: Goal: Understanding of discharge needs will improve Outcome: Progressing Problem: Safety: Goal: Will remain free from falls Outcome: Progressing Goals: Clinical Goals for the Shift: safety Summary: patient has remained free from fall continues to work with therapy towards discharge home * Plan of Care - Sailaja Adam RN - 08/15/2022 1:34 PM CDT Problem: Health Behavior: Goal: Understanding of discharge needs will improve Outcome: Progressing Problem: Lack of Knowledge: Goal: Ability to state ways to decrease the risk of falls will improve Outcome: Progressing Problem: Safety: Goal: Will remain free from falls Outcome: Progressing Goal: Will remain free from injury from falls Outcome: Progressing Goal: Will remain free from falls and injury in home environment Outcome: Progressing Problem: Activity: Goal: Risk for activity intolerance will decrease Outcome: Progressing Problem: Lack of Knowledge: Goal: Knowledge of diagnostic tests will improve Outcome: Progressing Goal: Knowledge of disease or condition will improve Outcome: Progressing Goal: Knowledge of safety precautions will improve Outcome: Progressing Goal: Knowledge of the prescribed therapeutic regimen will improve Outcome: Progressing Problem: Health Behavior: Goal: Ability to state signs and symptoms to report to health care provider will improve Outcome: Progressing Problem: Physical Regulation: Goal: Ability to maintain clinical measurements within normal limits will improve Outcome: Progressing Problem: Infection Risk: Goal: Will remain free from infection Outcome: Progressing Problem: Safety: Goal: Ability to remain free from injury will improve Outcome: Progressing Goal: Will remain free from falls Outcome: Progressing Problem: Self-Care: Goal: Ability to participate in self-care as condition permits will improve Outcome: Progressing Problem: Sensory: Goal: Pain level will decrease Outcome: Progressing Goal: Ability to develop a pain control plan will improve Outcome: Progressing Problem: Skin Integrity: Goal: Risk for impaired skin integrity will decrease Outcome: Progressing Problem: Tissue Perfusion: Goal: Risk factors for ineffective tissue perfusion will decrease Outcome: Progressing Problem: Activity: Goal: Mobility will improve Outcome: Progressing Problem: Lack of Knowledge: Goal: Understanding of ways to prevent future skin breakdown will improve Outcome: Progressing Goal: Ability to identify appropriate dietary choices will improve Outcome: Progressing Problem: Nutritional: Goal: Dietary intake will improve Outcome: Progressing Goal: Ability to maintain a balanced intake and output will improve Outcome: Progressing Problem: Skin Integrity: Goal: Risk for impaired skin integrity will decrease Outcome: Progressing Goal: Ability to demonstrate warm and dry skin will improve Outcome: Progressing Goal: Circulation will improve to fullest extent possible Outcome: Progressing Goals: Clinical Goals for the Shift: safety Summary: Patient continues to understand safety measures, fall precautions and the necessity to take medications timely and consistently once discharged to home. Patient verbalizes understanding. * Plan of Care - Bell Moffett SLP - 08/15/2022 8:55 AM CDT Problem: Swallowing Goal: LTG - Patient will tolerate the least restrictive diet consistency to allow for safe consumption of daily meals Outcome: Progressing Problem: Communication/Motor Speech Goal: STG - Patient will participate in oral-motor exercises to improve strength Outcome: Progressing Goal: STG - Patient will identify and utilize word retrieval Intervention in structured tasks Outcome: Progressing Goal: STG - Patient will use speech intelligibility Intervention at conversational level Outcome: Progressing * Plan of Care - Cassi Dumont RN - 08/15/2022 12:36 AM CDT Problem: Health Behavior: Goal: Understanding of discharge needs will improve Outcome: Progressing Problem: Safety: Goal: Will remain free from falls Outcome: Progressing Goals: Clinical Goals for the Shift: safety Summary: patient has remained free from fall call for assistance working with therapies for improved mobility and speech * IPOC (4 Day Plan of Care) - Opal Mace MD - 08/14/2022 10:46 AM CDT [facility] Rehabilitation Individualized Interdisciplinary Plan of Care Name: Abena Giron : 1940 Age: 82 y.o. Gender: female Room/Bed: [facility] [address] Admit: 08/12/2022 11:56 AM Rehab Diagnosis: Rehab Diagnosis: L CVA Current functional status: ADL: OT Functional Mobility: 08/13 transfers: MIN/CGA (08/13/2022 10:10 AM) OT Self Care: 08/13 bathing/toileting CGA, UB/LB dressing/footwear MIN, oral hygiene/grooming Set-up(08/13/2022 10:10 AM) OT Cognition: WFL (08/13/2022 10:10 AM) OT Communication: Some expressive aphasia (08/13/2022 10:10 AM) Mobility/Transfers: PT Functional Mobility: 08/13/22: Bed Mobility: CG assist for sit to/from supine, increased time needed to sit up and cues to not hold breath. Supervision with verbal cues for technique for rolling. Transfers: CG assist for sit to/from stand with w/w and maximal cues for hand placement. CG/min assist for sit to/from stand with SBQC, cues for upright posture. Ambulation: CG assist for 50' with w/w,cues for R hand to stay on walker, fast/impulsive kimbelry, w/w too far in front and poor obstacle avoidance. Stairs: min assist for 4 steps with bilateral handrail, moderate cues for LE sequencing. Increased instability during descent with associated reports of weakness. (08/13/2022 11:07 AM) Cognition/Communication/Swallowing: [employer] Cognition: oriented x3 (08/12/2022 2:00 PM) [employer] Communication: word finding deficits and dysarthria (08/12/2022 2:00 PM) [employer] Swallowing: assessed at . Patient with oral dysphagia/puree diet/thin liquids. (08/12/2022 2:00 PM) Prognosis: Good Plan Of Care Discharge Plan: Anticipated destination post discharge from inpatient rehab: home with caregiver Discharge Plan after IRF stay: to return home with caregiver/family assist at highest level functional independence Anticipated Discharge Date/Estimated Length of Stay/Duration of Rehabilitation: Estimated Length ofStay: 14 days The following is a list of patient problems that have been identified by the interdisciplinary team: Multi-Disciplinary Problems Active Problems Problem: Health Behavior: Start Date: 08/12/22 Goal Start Date End Date Understanding of discharge needs will improve 08/12/22 -- Goal Intervention Frequency Start Date End Date Discuss information regarding discharge instructions -- 08/12/22 -- Goal Intervention Frequency Start Date End Date Identify discharge learning needs (meds, wound care, etc) -- 08/12/22 -- Goal Intervention Frequency Start Date End Date Collaborate with case management -- 08/12/22 -- Intervention Details: (Coordinate discharge planning if the patient needs post- hospital services onphysician order or complex needs related to functional status, cognitive ability, or social supportsystem) Goal Intervention Frequency Start Date End Date Arrange for needed discharge resources and transportation as appropriate -- 08/12/22 -- Goal Intervention Frequency Start Date End Date Identify discharge barriers -- 08/12/22 -- Problem: Lack of Knowledge: Start Date: 08/12/22 Goal Start Date End Date Ability to state ways to decrease the risk of falls will improve 08/12/22 -- Goal Intervention Frequency Start Date End Date Teach fall prevention measures -- 08/12/22 -- Goal Intervention Frequency Start Date End Date Teach information regarding appropriate environmental changes -- 08/12/22 -- Problem: Safety: Start Date: 08/12/22 Goal Start Date End Date Will remain free from falls 08/12/22 -- Goal Intervention Frequency Start Date End Date Assess risk factors for falls -- 08/12/22 -- Intervention Details: (including medications) Goal Intervention Frequency Start Date End Date Implement fall prevention measures -- 08/12/22 -- Goal Intervention Frequency Start Date End Date Collaborate with other disciplines -- 08/12/22 -- Intervention Details: (PT, OT, Pharmacy, MD, etc.) Goal Start Date End Date Will remain free from injury from falls 08/12/22 -- Goal Intervention Frequency Start Date End Date Provide safe environment for conduction of activities of daily living -- 08/12/22 -- Goal Start Date End Date Will remain free from falls and injury in home environment 08/12/22 -- Goal Intervention Frequency Start Date End Date Assess environmental risk factors -- 08/12/22 -- Problem: Activity: Start Date: 08/12/22 Goal Start Date End Date Risk for activity intolerance will decrease 08/12/22 -- Goal Intervention Frequency Start Date End Date Monitor signs of activity intolerance -- 08/12/22 -- Goal Intervention Frequency Start Date End Date Encourage mobilization to extent of ability -- 08/12/22 -- Problem: Lack of Knowledge: Start Date: 08/12/22 Goal Start Date End Date Knowledge of diagnostic tests will improve 08/12/22 -- Goal Intervention Frequency Start Date End Date Explain information regarding tests and procedures -- 08/12/22 -- Goal Start Date End Date Knowledge of disease or condition will improve 08/12/22 -- Goal Intervention Frequency Start Date End Date Discuss information regarding disease process or condition -- 08/12/22 -- Goal Intervention Frequency Start Date End Date Discuss information regarding pain and pain management -- 08/12/22 -- Goal Start Date End Date Knowledge of safety precautions will improve 08/12/22 -- Goal Intervention Frequency Start Date End Date Discuss fall prevention measures -- 08/12/22 -- Goal Start Date End Date Knowledge of the prescribed therapeutic regimen will improve 08/12/22 -- Goal Intervention Frequency Start Date End Date Teach information regarding medications -- 08/12/22 -- Goal Intervention Frequency Start Date End Date Explain prescribed diet -- 08/12/22 -- Problem: Health Behavior: Start Date: 08/12/22 Goal Start Date End Date Ability to state signs and symptoms to report to health care provider will improve 08/12/22 -- Goal Intervention Frequency Start Date End Date Encourage reporting changes in condition -- 08/12/22 -- Goal Intervention Frequency Start Date End Date Encourage participation in health care plan -- 08/12/22 -- Problem: Physical Regulation: Start Date: 08/12/22 Goal Start Date End Date Ability to maintain clinical measurements within normal limits will improve 08/12/22 -- Goal Intervention Frequency Start Date End Date Monitor response to treatment -- 08/12/22 -- Goal Intervention Frequency Start Date End Date Perform comparison of current condition to baseline findings -- 08/12/22 -- Goal Intervention Frequency Start Date End Date Monitor diagnostic test results -- 08/12/22 -- Problem: Infection Risk: Start Date: 08/12/22 Goal Start Date End Date Will remain free from infection 08/12/22 -- Goal Intervention Frequency Start Date End Date Encourage good hand hygiene -- 08/12/22 -- Goal Intervention Frequency Start Date End Date Provide infection prevention measures -- 08/12/22 -- Goal Intervention Frequency Start Date End Date Assess signs and symptoms of infection -- 08/12/22 -- Problem: Safety: Start Date: 08/12/22 Goal Start Date End Date Ability to remain free from injury will improve 08/12/22 -- Goal Intervention Frequency Start Date End Date Provide a safe environment -- 08/12/22 -- Goal Intervention Frequency Start Date End Date Provide surveillance of patient -- 08/12/22 -- Goal Start Date End Date Will remain free from falls 08/12/22 -- Goal Intervention Frequency Start Date End Date Assess risk factors for falls -- 08/12/22 -- Goal Intervention Frequency Start Date End Date Implement fall prevention measures -- 08/12/22 -- Problem: Self-Care: Start Date: 08/12/22 Goal Start Date End Date Ability to participate in self-care as condition permits will improve 08/12/22 -- Goal Intervention Frequency Start Date End Date Assess ability to perform activities of daily living -- 08/12/22 -- Problem: Sensory: Start Date: 08/12/22 Goal Start Date End Date Pain level will decrease 08/12/22 -- Goal Intervention Frequency Start Date End Date Assess pain status -- 08/12/22 -- Goal Intervention Frequency Start Date End Date Monitor patients response to pain management -- 08/12/22 -- Goal Start Date End Date Ability to develop a pain control plan will improve 08/12/22 -- Goal Intervention Frequency Start Date End Date Explore factors that precipitate, worsen or relieve pain or discomfort -- 08/12/22 -- Goal Intervention Frequency Start Date End Date Implement pain control measures -- 08/12/22 -- Goal Intervention Frequency Start Date End Date Explore non-pharmacologic comfort measures -- 08/12/22 -- Goal Intervention Frequency Start Date End Date Provide administration of medications prior to painful activities -- 08/12/22 -- Problem: Skin Integrity: Start Date: 08/12/22 Goal Start Date End Date Risk for impaired skin integrity will decrease 08/12/22 -- Goal Intervention Frequency Start Date End Date Assess risk factors for impaired skin integrity and/or pressure ulcers -- 08/12/22 -- Goal Intervention Frequency Start Date End Date Monitor skin integrity, appearance and/or temperature -- 08/12/22 -- Goal Intervention Frequency Start Date End Date Provide skin care -- 08/12/22 -- Goal Intervention Frequency Start Date End Date Provide repositioning -- 08/12/22 -- Problem: Tissue Perfusion: Start Date: 08/12/22 Goal Start Date End Date Risk factors for ineffective tissue perfusion will decrease 08/12/22 -- Goal Intervention Frequency Start Date End Date Assess risk for venous thromboembolism (VTE) -- 08/12/22 -- Goal Intervention Frequency Start Date End Date Encourage ambulation -- 08/12/22 -- Problem: Swallowing Start Date: 08/12/22 Goal Start Date End Date LTG - Patient will tolerate the least restrictive diet consistency to allow for safe consumption ofdaily meals 08/12/22 -- Problem: Communication/Motor Speech Start Date: 08/12/22 Goal Start Date End Date STG - Patient will participate in oral-motor exercises to improve strength 08/12/22 -- Goal Start Date End Date STG - Patient will identify and utilize word retrieval Intervention in structured tasks 08/12/22 -- Goal Start Date End Date STG - Patient will use speech intelligibility Intervention at conversational level 08/12/22 -- Problem: PT Misc Start Date: 08/13/22 Goal Start Date End Date Patient to perform bed mobility with independence. 08/13/22 -- Goal Start Date End Date Patient to perform functional transfers with most appropriate device MOD I. 08/13/22 -- Goal Start Date End Date Patient to ambulate 150 feet with most appropriate device MOD I. 08/13/22 -- Goal Start Date End Date Patient to navigate 4 steps with supervision and most appropriate device/technique 08/13/22 -- Goal Start Date End Date Patient to improve FRANKS >30/56 08/13/22 -- Goal Start Date End Date Patient to perform HEP for BLE strength and balance with at least 10 reps each independently. 08/13/22 -- Problem: OT Misc Start Date: 08/13/22 Goal Start Date End Date [facility] 08[facility] -- Goal Details: Pt. Will complete BADL routine including simulated tub/shower bathing, grooming, oralhygiene, UB/LB dressing, and footwear with MOD I one time. Goal Start Date End Date [facility] 08/13/22 -- Goal Details: Pt. Will complete toileting routine and toilet transfer with MOD I one time Goal Start Date End Date [facility] 08/13/22 -- Goal Details: Pt. Will complete functional transfers including car, tub/shower, and toilet with EV one time Goal Start Date End Date [facility] 08/13/22 -- Goal Details: Pt. Will complete UE GMC/FMC, proprioception, and strengthening HEP with MOD I one time Goal Start Date End Date [facility] 08/13/22 -- Goal Details: Pt. Will complete medication/bill management activity with 100% accuracy with MOD I one time Goal Start Date End Date [facility] 08/13/22 -- Goal Details: Pt. Will complete basic IADL tasks such as laundry, light meal prep, and light housekeeping with MOD I one time. Goal Start Date End Date [facility] 08/13/22 -- Goal Details: Pt. Will complete functional/meaningful activity in standing for 10+ minutes with EV one time Goal Start Date End Date [facility] 08/13/22 -- Goal Details: Pt. Will complete meaningful gardening task with MOD I one time Goal Start Date End Date [facility] 08[facility]13[facility]22 -- Goal Details: Pt.'s family will be present for one OT session and be aware of discharge needs/plans. Interdisciplinary Team: Therapies required to achieve goals:The patient will benefit from integrated coordination of care from the following interdisciplinary services: Medical Supervision, 24 hours Rehabilitation Nursing, Physical Therapy, Occupational Therapy, Case Management; Speech Therapy; Social Work Intensity and Frequency: Expected intensity and frequency of participation in the interdisciplinary rehab program is: 3 hours of therapy 5 days per week for the duration of length of stay Expected intensity and frequency of Physical Therapy (PT): 1.5 hours per day over 5-7 days for the duration of length of stay Expected intensity and frequency of Occupational Therapy (OT): 1.5 hours per day over 5-7 days per week for the duration of length of stay Expected intensity and frequency of Speech Therapy ([employer]): 1 hour per day per day over 5-7 days per week for the duration of length of stay The established therapy intensity and frequency noted above may be modified to accommodate individualized patient needs. Clinical Summation since admission: expect progress with continued therapy Comments: agree with above. Sensitive to medicines * Plan of Care - Yissel Ayers MSW - 08/14/2022 9:56 AM CDT Sw met with pt and pt's dtr at the bedside. Pt feels she is improving, but knows that she has a long way to go. Per dtr they are taking turns staying with pt. They are getting pt's home ready for pt.Per dtr pt will NOT go to a long term. Pt anxious to get back home to her cat. KATE Means,[facility]- [phone] * Plan of Care - Ashleigh Potter RN - 08/14/2022 9:06 AM CDT Summary: Problem: Health Behavior: Goal: Understanding of discharge needs will improve Outcome: Progressing Problem: Lack of Knowledge: Goal: Ability to state ways to decrease the risk of falls will improve Outcome: Progressing Problem: Safety: Goal: Will remain free from falls Outcome: Progressing Goal: Will remain free from injury from falls Outcome: Progressing Goal: Will remain free from falls and injury in home environment Outcome: Progressing Problem: Activity: Goal: Risk for activity intolerance will decrease Outcome: Progressing Problem: Lack of Knowledge: Goal: Knowledge of diagnostic tests will improve Outcome: Progressing Goal: Knowledge of disease or condition will improve Outcome: Progressing Goal: Knowledge of safety precautions will improve Outcome: Progressing Goal: Knowledge of the prescribed therapeutic regimen will improve Outcome: Progressing Problem: Health Behavior: Goal: Ability to state signs and symptoms to report to health care provider will improve Outcome: Progressing Problem: Physical Regulation: Goal: Ability to maintain clinical measurements within normal limits will improve Outcome: Progressing Problem: Infection Risk: Goal: Will remain free from infection Outcome: Progressing Problem: Safety: Goal: Ability to remain free from injury will improve Outcome: Progressing Goal: Will remain free from falls Outcome: Progressing Problem: Self-Care: Goal: Ability to participate in self-care as condition permits will improve Outcome: Progressing Problem: Sensory: Goal: Pain level will decrease Outcome: Progressing Goal: Ability to develop a pain control plan will improve Outcome: Progressing Problem: Skin Integrity: Goal: Risk for impaired skin integrity will decrease Outcome: Progressing Problem: Tissue Perfusion: Goal: Risk factors for ineffective tissue perfusion will decrease Outcome: Progressing * Patient Care Conference - Yissel Ayers MSW - 08/14/2022 8:11 AM CDT Images from the original note were not included. Inpatient RehabilitationTeam Conference Note Date: 08/14/2022 Time: 8:11 AM Patient Name: Abena Giron Date of : 1940 Sex: Female Room/Bed: [facility]05/[id number] Admitting Diagnosis: Acute CVA (cerebrovascular accident) (HCC) [I63.9] Admit Date/Time: 08/12/2022 11:56 AM Admission Comments: No comment available Rehab Diagnosis:Rehab Diagnosis: L CVA Vitals: 08/14/22 0750 BP: 114/57 Pulse: 75 Resp: 20 Temp: 36.4 ??C (97.5 ??F) SpO2: 98% Weight /Nutrition Weight: 71.2 kg (156 lb 15.5 oz) Weight change: Food consistency: Liquid consistency: Bladder and Bowel Accidents/Last BM None Pressure Ulcers None Patient Active Problem List Diagnosis Date Noted History of coronary artery stent placement 08/28/2021 Acute CVA (cerebrovascular accident) ([facility]) 08/12/2022 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 ([facility]) 08/03/2022 Ischemic stroke ([facility]) 08/03/2022 Cardiac pacemaker in situ 09/17/2021 GENNY (obstructive sleep apnea) 09/29/2018 Sick sinus syndrome (CMS/HCC) ([facility]) 09/14/2018 B12 deficiency 12/23/2017 Abdominal aortic aneurysm (AAA) without rupture ([facility]) 06/25/2017 Anxiety 03/12/2017 Coronary artery disease involving [place] coronary artery of [place] heart 12/25/2016 Paroxysmal atrial fibrillation (CMS/HCC) ([facility]) 12/25/2016 Chronic GERD 12/25/2016 Hypertension 01/28/2013 Hyperlipidemia 01/28/2013 Osteoarthritis 01/20/2013 Team Members Present: Physician Landscaper: Opal Mace MD Nursing Landscaper: Ashleigh Potter RN Social Work Landscaper: Yissel Ayers MSW PT Landscaper: Other (comment) (Raudel Ferrara) OT Landscaper: Hiral Parks OT [employer] Landscaper: Bell Moffett SLP Patient/Family Present: Patient Present: No Patient's Family Present: No Treatment Goals: Multi-Disciplinary Problems Active Problems Problem: Health Behavior: Start Date: 08/12/22 Goal Start Date End Date Understanding of discharge needs will improve 08/12/22 -- Goal Intervention Frequency Start Date End Date Discuss information regarding discharge instructions -- 08/12/22 -- Goal Intervention Frequency Start Date End Date Identify discharge learning needs (meds, wound care, etc) -- 08/12/22 -- Goal Intervention Frequency Start Date End Date Collaborate with case management -- 08/12/22 -- Intervention Details: (Coordinate discharge planning if the patient needs post- hospital services onphysician order or complex needs related to functional status, cognitive ability, or social supportsystem) Goal Intervention Frequency Start Date End Date Arrange for needed discharge resources and transportation as appropriate -- 08/12/22 -- Goal Intervention Frequency Start Date End Date Identify discharge barriers -- 08/12/22 -- Problem: Lack of Knowledge: Start Date: 08/12/22 Goal Start Date End Date Ability to state ways to decrease the risk of falls will improve 08/12/22 -- Goal Intervention Frequency Start Date End Date Teach fall prevention measures -- 08/12/22 -- Goal Intervention Frequency Start Date End Date Teach information regarding appropriate environmental changes -- 08/12/22 -- Problem: Safety: Start Date: 08/12/22 Goal Start Date End Date Will remain free from falls 08/12/22 -- Goal Intervention Frequency Start Date End Date Assess risk factors for falls -- 08/12/22 -- Intervention Details: (including medications) Goal Intervention Frequency Start Date End Date Implement fall prevention measures -- 08/12/22 -- Goal Intervention Frequency Start Date End Date Collaborate with other disciplines -- 08/12/22 -- Intervention Details: (PT, OT, Pharmacy, MD, etc.) Goal Start Date End Date Will remain free from injury from falls 08/12/22 -- Goal Intervention Frequency Start Date End Date Provide safe environment for conduction of activities of daily living -- 08/12/22 -- Goal Start Date End Date Will remain free from falls and injury in home environment 08/12/22 -- Goal Intervention Frequency Start Date End Date Assess environmental risk factors -- 08/12/22 -- Problem: Activity: Start Date: 08/12/22 Goal Start Date End Date Risk for activity intolerance will decrease 08/12/22 -- Goal Intervention Frequency Start Date End Date Monitor signs of activity intolerance -- 08/12/22 -- Goal Intervention Frequency Start Date End Date Encourage mobilization to extent of ability -- 08/12/22 -- Problem: Lack of Knowledge: Start Date: 08/12/22 Goal Start Date End Date Knowledge of diagnostic tests will improve 08/12/22 -- Goal Intervention Frequency Start Date End Date Explain information regarding tests and procedures -- 08/12/22 -- Goal Start Date End Date Knowledge of disease or condition will improve 08/12/22 -- Goal Intervention Frequency Start Date End Date Discuss information regarding disease process or condition -- 08/12/22 -- Goal Intervention Frequency Start Date End Date Discuss information regarding pain and pain management -- 08/12/22 -- Goal Start Date End Date Knowledge of safety precautions will improve 08/12/22 -- Goal Intervention Frequency Start Date End Date Discuss fall prevention measures -- 08/12/22 -- Goal Start Date End Date Knowledge of the prescribed therapeutic regimen will improve 08/12/22 -- Goal Intervention Frequency Start Date End Date Teach information regarding medications -- 08/12/22 -- Goal Intervention Frequency Start Date End Date Explain prescribed diet -- 08/12/22 -- Problem: Health Behavior: Start Date: 08/12/22 Goal Start Date End Date Ability to state signs and symptoms to report to health care provider will improve 08/12/22 -- Goal Intervention Frequency Start Date End Date Encourage reporting changes in condition -- 08/12/22 -- Goal Intervention Frequency Start Date End Date Encourage participation in health care plan -- 08/12/22 -- Problem: Physical Regulation: Start Date: 08/12/22 Goal Start Date End Date Ability to maintain clinical measurements within normal limits will improve 08/12/22 -- Goal Intervention Frequency Start Date End Date Monitor response to treatment -- 08/12/22 -- Goal Intervention Frequency Start Date End Date Perform comparison of current condition to baseline findings -- 08/12/22 -- Goal Intervention Frequency Start Date End Date Monitor diagnostic test results -- 08/12/22 -- Problem: Infection Risk: Start Date: 08/12/22 Goal Start Date End Date Will remain free from infection 08/12/22 -- Goal Intervention Frequency Start Date End Date Encourage good hand hygiene -- 08/12/22 -- Goal Intervention Frequency Start Date End Date Provide infection prevention measures -- 08/12/22 -- Goal Intervention Frequency Start Date End Date Assess signs and symptoms of infection -- 08/12/22 -- Problem: Safety: Start Date: 08/12/22 Goal Start Date End Date Ability to remain free from injury will improve 08/12/22 -- Goal Intervention Frequency Start Date End Date Provide a safe environment -- 08/12/22 -- Goal Intervention Frequency Start Date End Date Provide surveillance of patient -- 08/12/22 -- Goal Start Date End Date Will remain free from falls 08/12/22 -- Goal Intervention Frequency Start Date End Date Assess risk factors for falls -- 08/12/22 -- Goal Intervention Frequency Start Date End Date Implement fall prevention measures -- 08/12/22 -- Problem: Self-Care: Start Date: 08/12/22 Goal Start Date End Date Ability to participate in self-care as condition permits will improve 08/12/22 -- Goal Intervention Frequency Start Date End Date Assess ability to perform activities of daily living -- 08/12/22 -- Problem: Sensory: Start Date: 08/12/22 Goal Start Date End Date Pain level will decrease 08/12/22 -- Goal Intervention Frequency Start Date End Date Assess pain status -- 08/12/22 -- Goal Intervention Frequency Start Date End Date Monitor patients response to pain management -- 08/12/22 -- Goal Start Date End Date Ability to develop a pain control plan will improve 08/12/22 -- Goal Intervention Frequency Start Date End Date Explore factors that precipitate, worsen or relieve pain or discomfort -- 08/12/22 -- Goal Intervention Frequency Start Date End Date Implement pain control measures -- 08/12/22 -- Goal Intervention Frequency Start Date End Date Explore non-pharmacologic comfort measures -- 08/12/22 -- Goal Intervention Frequency Start Date End Date Provide administration of medications prior to painful activities -- 08/12/22 -- Problem: Skin Integrity: Start Date: 08/12/22 Goal Start Date End Date Risk for impaired skin integrity will decrease 08/12/22 -- Goal Intervention Frequency Start Date End Date Assess risk factors for impaired skin integrity and/or pressure ulcers -- 08/12/22 -- Goal Intervention Frequency Start Date End Date Monitor skin integrity, appearance and/or temperature -- 08/12/22 -- Goal Intervention Frequency Start Date End Date Provide skin care -- 08/12/22 -- Goal Intervention Frequency Start Date End Date Provide repositioning -- 08/12/22 -- Problem: Tissue Perfusion: Start Date: 08/12/22 Goal Start Date End Date Risk factors for ineffective tissue perfusion will decrease 08/12/22 -- Goal Intervention Frequency Start Date End Date Assess risk for venous thromboembolism (VTE) -- 08/12/22 -- Goal Intervention Frequency Start Date End Date Encourage ambulation -- 08/12/22 -- Problem: Swallowing Start Date: 08/12/22 Goal Start Date End Date LTG - Patient will tolerate the least restrictive diet consistency to allow for safe consumption ofdaily meals 08/12/22 -- Problem: Communication/Motor Speech Start Date: 08/12/22 Goal Start Date End Date STG - Patient will participate in oral-motor exercises to improve strength 08/12/22 -- Goal Start Date End Date STG - Patient will identify and utilize word retrieval Intervention in structured tasks 08/12/22 -- Goal Start Date End Date STG - Patient will use speech intelligibility Intervention at conversational level 08/12/22 -- Problem: PT Misc Start Date: 08/13/22 Goal Start Date End Date Patient to perform bed mobility with independence. 08/13/22 -- Goal Start Date End Date Patient to perform functional transfers with most appropriate device MOD I. 08/13/22 -- Goal Start Date End Date Patient to ambulate 150 feet with most appropriate device MOD I. 08/13/22 -- Goal Start Date End Date Patient to navigate 4 steps with supervision and most appropriate device/technique 08/13/22 -- Goal Start Date End Date Patient to improve FRANKS >30/56 08/13/22 -- Goal Start Date End Date Patient to perform HEP for BLE strength and balance with at least 10 reps each independently. 08/13/22 -- Problem: OT [facility] Start Date: 08/13/22 Goal Start Date End Date [facility] 08/13/22 -- Goal Details: Pt. Will complete BADL routine including simulated tub/shower bathing, grooming, oralhygiene, UB/LB dressing, and footwear with MOD I one time. Goal Start Date End Date [facility] 08/13/22 -- Goal Details: Pt. Will complete toileting routine and toilet transfer with MOD I one time Goal Start Date End Date OT [facility] 08/13/22 -- Goal Details: Pt. Will complete functional transfers including car, tub/shower, and toilet with EV one time Goal Start Date End Date [facility] - [facility] [place] 08[place]13/22 -- Goal Details: Pt. Will complete UE GMC/FMC, proprioception, and strengthening HEP with MOD I one time Goal Start Date End Date OT [facility] - [facility] 08/13/22 -- Goal Details: Pt. Will complete medication/bill management activity with 100% accuracy with MOD I one time Goal Start Date End Date OT [facility] 6 08/13/22 -- Goal Details: Pt. Will complete basic IADL tasks such as laundry, light meal prep, and light housekeeping with MOD I one time. Goal Start Date End Date OT [facility] 7 08/13/22 -- Goal Details: Pt. Will complete functional/meaningful activity in standing for 10+ minutes with EV one time Goal Start Date End Date OT [facility] 8 08/13/22 -- Goal Details: Pt. Will complete meaningful gardening task with MOD I one time Goal Start Date End Date OT [facility] 9 08/13/22 -- Goal Details: Pt.'s family will be present for one OT session and be aware of discharge needs/plans. Current functional status: ADL: OT Functional Mobility: 08/13 transfers: MIN/CGA (08/13/2022 10:10 AM) OT Self Care: 08/13 bathing/toileting CGA, UB/LB dressing/footwear MIN, oral hygiene/grooming Set-up(08/13/2022 10:10 AM) OT Cognition: WFL (08/13/2022 10:10 AM) OT Communication: Some expressive aphasia (08/13/2022 10:10 AM) Mobility/Transfers: PT Functional Mobility: 08/13/22: Bed Mobility: CG assist for sit to/from supine, increased time needed to sit up and cues to not hold breath. Supervision with verbal cues for technique for rolling. Transfers: CG assist for sit to/from stand with w/w and maximal cues for hand placement. CG/min assist for sit to/from stand with SBQC, cues for upright posture. Ambulation: CG assist for 50' with w/w,cues for R hand to stay on walker, fast/impulsive kimberly, w/w too far in front and poor obstacle avoidance. Stairs: min assist for 4 steps with bilateral handrail, moderate cues for LE sequencing. Increased instability during descent with associated reports of weakness. (08/13/2022 11:07 AM) Cognition/Communication/Swallowing: SALES HUNTER Cognition: oriented x3 (08/12/2022 2:00 PM) SALES HUNTER Communication: word finding deficits and dysarthria (08/12/2022 2:00 PM) SALES HUNTER Swallowing: assessed at . Patient with oral dysphagia/puree diet/thin liquids. (08/12/2022 2:00 PM) Issues/Consults: Family Issues/Concerns Family Responsibilities: home alone Work: n/a Caregiver for Others: n/a Children at Home Ages: n/a Limited Support System: has four supportive daughters Financial Resources: SSI School: n/a Other Issues: n/a Family Education/Participation Family Participation Plan: To be determined Caregiver at Discharge: home with family assist Living Setting at Discharge: Patient expects to be discharged to:: Private residence Therapy needed: None Steps: Steps in home?: Yes, Outside of home, Yes, Inside home,Number of steps inside: 9 steps (steps to the basement.),Number of steps outside: 3 steps (3 steps in front and 3 in back) Premorbid DME: none Anticipated Discharge Date: TBD Potential Coagulation Operator Needs/Follow-up: Potential Custodial Needs: Therapies,Community Resources: To be determined Consults/Referrals: Home Health Anticipated Supervision:home with family and c Anticipated Equipment Needs: OT: TBD PT: TBD Strengths to Achieving Rehab Goals: see notes below Barriers to Achieving Rehab Goals: see notes below Medical Barriers: Ashleigh Potter RN Registered Nurse Nursing Plan of Care Signed Date of Service: 08/14/2022 9:06 AM Signed Summary: Problem: Health Behavior: Goal: Understanding of discharge needs will improve Outcome: Progressing Problem: Lack of Knowledge: Goal: Ability to state ways to decrease the risk of falls will improve Outcome: Progressing Problem: Safety: Goal: Will remain free from falls Outcome: Progressing Goal: Will remain free from injury from falls Outcome: Progressing Goal: Will remain free from falls and injury in home environment Outcome: Progressing Problem: Activity: Goal: Risk for activity intolerance will decrease Outcome: Progressing Problem: Lack of Knowledge: Goal: Knowledge of diagnostic tests will improve Outcome: Progressing Goal: Knowledge of disease or condition will improve Outcome: Progressing Goal: Knowledge of safety precautions will improve Outcome: Progressing Goal: Knowledge of the prescribed therapeutic regimen will improve Outcome: Progressing Problem: Health Behavior: Goal: Ability to state signs and symptoms to report to health care provider will improve Outcome: Progressing Problem: Physical Regulation: Goal: Ability to maintain clinical measurements within normal limits will improve Outcome: Progressing Problem: Infection Risk: Goal: Will remain free from infection Outcome: Progressing Problem: Safety: Goal: Ability to remain free from injury will improve Outcome: Progressing Goal: Will remain free from falls Outcome: Progressing Problem: Self-Care: Goal: Ability to participate in self-care as condition permits will improve Outcome: Progressing Problem: Sensory: Goal: Pain level will decrease Outcome: Progressing Goal: Ability to develop a pain control plan will improve Outcome: Progressing Problem: Skin Integrity: Goal: Risk for impaired skin integrity will decrease Outcome: Progressing Problem: Tissue Perfusion: Goal: Risk factors for ineffective tissue perfusion will decrease Outcome: Progressing Weekly Team Goals: Bell Moffett SALES HUNTER Speech and Language Pathologist Specialty: Speech Therapy Plan of Care Signed Date of Service: 08/14/2022 7:02 AM Signed Problem: Swallowing Goal: LTG - Patient will tolerate the least restrictive diet consistency to allow for safe consumption of daily meals Outcome: Progressing Current Functional Status: SALES HUNTER Cognition: oriented x3 SALES HUNTER Communication: word finding deficits and dysarthria SALES HUNTER Swallowing: assessed at . Patient with oral dysphagia/puree diet/thin liquids. Barriers: oral weakness and poor carry over Overcoming Barriers: oral exercises Problem: Communication/Motor Speech Goal: STG - Patient will participate in oral-motor exercises to improve strength Outcome: Progressing Current Functional Status: SALES HUNTER Cognition: oriented x3 SALES HUNTER Communication: word finding deficits and dysarthria SALES HUNTER Swallowing: assessed at . Patient with oral dysphagia/puree diet/thin liquids. Barriers: forgetfulness,oral weakness Overcoming Barriers: model in therapy Goal: STG - Patient will identify and utilize word retrieval Intervention in structured tasks Outcome: Progressing Current Functional Status: SALES HUNTER Cognition: oriented x3 SALES HUNTER Communication: word finding deficits and dysarthria SALES HUNTER Swallowing: assessed at . Patient with oral dysphagia/puree diet/thin liquids. Barriers: aphasia Overcoming Barriers: cues Goal: STG - Patient will use speech intelligibility Intervention at conversational level Outcome: Progressing Current Functional Status: SALES HUNTER Cognition: oriented x3 SALES HUNTER Communication: word finding deficits and dysarthria SALES HUNTER Swallowing: assessed at . Patient with oral dysphagia/puree diet/thin liquids. Barriers: dysarthria Overcoming Barriers: oral exercises Azalea Martinez Occupational Therapy Student Occupational Therapy Progress Notes Signed Date of Service: 08/13/2022 4:17 PM Signed Occupational Therapy NOTE / SESSION TYPE: OT ROUNDS UPDATE PATIENT'S NAME: Abena Giron AGE / SEX: 82 y.o. / female [id number] 1940 DATE: 08/13/22 Multi-Disciplinary Problems (from Occupational Therapy) Active Problems Problem: OT [facility] [place] Start Date: 08/13/22 Goal Start Date Expected End Date End Date [facility]22 08/26/22 -- Goal Details: Pt. Will complete BADL routine including simulated tub/shower bathing, grooming, oralhygiene, UB/LB dressing, and footwear with MOD I one time. Goal Start Date Expected End Date End Date [facility] 08/13/22 08/26/22 -- Goal Details: Pt. Will complete toileting routine and toilet transfer with MOD I one time Goal Start Date Expected End Date End Date [facility] 08/13/22 08/26/22 -- Goal Details: Pt. Will complete functional transfers including car, tub/shower, and toilet with EV one time Goal Start Date Expected End Date End Date [facility] 08/13/22 08/26/22 -- Goal Details: Pt. Will complete UE GMC/FMC, proprioception, and strengthening HEP with MOD I one time Goal Start Date Expected End Date End Date [facility] 08/13/22 08/26/22 -- Goal Details: Pt. Will complete medication/bill management activity with 100% accuracy with MOD I one time Goal Start Date Expected End Date End Date [facility] 08/13/22 08/26/22 -- Goal Details: Pt. Will complete basic IADL tasks such as laundry, light meal prep, and light housekeeping with MOD I one time. Goal Start Date Expected End Date End Date [facility] 08/13/22 08/26/22 -- Goal Details: Pt. Will complete functional/meaningful activity in standing for 10+ minutes with EV one time Goal Start Date Expected End Date End Date [facility] 08/13/22 08/26/22 -- Goal Details: Pt. Will complete meaningful gardening task with MOD I one time Goal Start Date Expected End Date End Date [facility] 08/13/22 08/26/22 -- Goal Details: Pt.'s family will be present for one OT session and be aware of discharge needs/plans. CURRENT FUNCTIONAL STATUS: Transfers: MIN/CGA Bathing: CGA Oral Hygiene: Set-up Grooming: Set-up UB dressing: MIN LB dressing: MIN Footwear: MIN Toileting: CGA Pt. Is new to [facility], goals not yet addressed. Pt. Is motivated to participate but worries she has lost part of herself since her stroke. R sided weakness, coordination, and lack of proprioception limit ADL/IADL completion. Mild expressive aphasia noted, speech is more clear when speaking slowly. STRENGTHS: MOTIVATED, GOOD FAMILY / SOCIAL SUPPORT, ABLE TO TOLERATE INPATIENT REHAB, GOOD PREMORBID FUNCTIONAL STATUS, and LIVING IN THE COMMUNITY PREMORBIDLY BARRIERS: DECREASED ACTIVITY TOLERANCE, DECREASED UE ROM / STRENGTH / COORDINATION, DECREASED MOBILITY, DECREASED BALANCE, and LANGUAGE IMPAIRMENT OVERCOMING BARRIERS: ADL training, Compensatory ADL strategies, Balance activities, Functional transfer training, UE home exercise program education, Family training as appropriate, IADL training, and Energy conservation techniques EQUIPMENT RECOMMENDED FOR DISCHARGE: JAMEY Martinez 08/13/22 4:17 PM . Cosigned by: Hiral Parks, OT at 08/13/2022 4:40 PM Raudel Ferrara, PT Physical Therapist Physical Therapy Plan of Care Signed Date of Service: 08/13/2022 12:53 PM Signed Problem: PT Misc Goal: Patient to perform bed mobility with independence. Outcome: Progressing Goal: Patient to perform functional transfers with most appropriate device MOD I. Outcome: Progressing Goal: Patient to ambulate 150 feet with most appropriate device MOD I. Outcome: Progressing Goal: Patient to navigate 4 steps with supervision and most appropriate device/technique Outcome: Progressing Goal: Patient to improve FRANKS >30/56 Outcome: Progressing Goal: Patient to perform HEP for BLE strength and balance with at least 10 reps each independently. Outcome: Progressing Current Functional Status: PT Functional Mobility: 08/13/22: Bed Mobility: CG assist for sit to/fromsupine, increased time needed to sit up and cues to not hold breath. Supervision with verbal cues for technique for rolling. Transfers: CG assist for sit to/from stand with w/w and maximal cues for hand placement. CG/min assist for sit to/from stand with SBQC, cues for upright posture. Ambulation: CG assist for 50' with w/w, cues for R hand to stay on walker, fast/impulsive kimberly, w/w too far in front and poor obstacle avoidance. Stairs: min assist for 4 steps with bilateral handrail, moderate cues for LE sequencing. Increased instability during descent with associated reports of weakness. Strengths: able to tolerate inpatient rehab, good premorbid functional status, good premorbid medical status, living in community premorbidly, and motivated Barriers: lack of family/social support, home layout, weakness, limited safety awareness, decreasedendurance, and impaired balance Overcoming Barriers: Strength training, endurance training, neuromuscular re- education, and overalleducation on functional mobility. Equipment Recommendations: TBD Raudel Ferrara, PT 08/13/22 12:55 PM Clinical Summation since admission: Cosigned by Opal Mace MD at 08/14/2022 1:36 PM CDT Associated attestation - Opal Mace MD - 08/14/2022 1:36 PM CDT I was present for the meeting and agree. 08/14/22 Progress: Still early on in rehab course but progressing DC Date: TBD DME: TBD * Plan of Care - Bell Moffett SALES HUNTER - 08/14/2022 7:02 AM CDT Problem: Swallowing Goal: LTG - Patient will tolerate the least restrictive diet consistency to allow for safe consumption of daily meals Outcome: Progressing Current Functional Status: SALES HUNTER Cognition: oriented x3 SALES HUNTER Communication: word finding deficits and dysarthria SALES HUNTER Swallowing: assessed at . Patient with oral dysphagia/puree diet/thin liquids. Barriers: oral weakness and poor carry over Overcoming Barriers: oral exercises Problem: Communication/Motor Speech Goal: STG - Patient will participate in oral-motor exercises to improve strength Outcome: Progressing Current Functional Status: SALES HUNTER Cognition: oriented x3 SALES HUNTER Communication: word finding deficits and dysarthria SALES HUNTER Swallowing: assessed at . Patient with oral dysphagia/puree diet/thin liquids. Barriers: forgetfulness,oral weakness Overcoming Barriers: model in therapy Goal: STG - Patient will identify and utilize word retrieval Intervention in structured tasks Outcome: Progressing Current Functional Status: SALES HUNTER Cognition: oriented x3 SALES HUNTER Communication: word finding deficits and dysarthria SALES HUNTER Swallowing: assessed at . Patient with oral dysphagia/puree diet/thin liquids. Barriers: aphasia Overcoming Barriers: cues Goal: STG - Patient will use speech intelligibility Intervention at conversational level Outcome: Progressing Current Functional Status: SALES HUNTER Cognition: oriented x3 SALES HUNTER Communication: word finding deficits and dysarthria SALES HUNTER Swallowing: assessed at . Patient with oral dysphagia/puree diet/thin liquids. Barriers: dysarthria Overcoming Barriers: oral exercises * Plan of Care - Cassi Dumont RN - 08/14/2022 12:43 AM CDT Problem: Health Behavior: Goal: Understanding of discharge needs will improve Outcome: Progressing Problem: Safety: Goal: Will remain free from falls Outcome: Progressing Goals: Clinical Goals for the Shift: safety Summary: patient has remained free from fall educated on safety will continue to work with therapy for improved mobility and speech towards discharge home * Plan of Care - Ronald Ramirez RN - 08/13/2022 2:33 PM CDT Goals: Clinical Goals for the Shift: Remain safe and pain free Problem: Lack of Knowledge: Goal: Knowledge of diagnostic tests will improve Outcome: Progressing Goal: Knowledge of disease or condition will improve Outcome: Progressing Goal: Knowledge of safety precautions will improve Outcome: Progressing Goal: Knowledge of the prescribed therapeutic regimen will improve Outcome: Progressing Problem: Activity: Goal: Risk for activity intolerance will decrease Outcome: Progressing * Plan of Care - Raudel Ferrara PT - 08/13/2022 12:53 PM CDT Problem: PT Misc Goal: Patient to perform bed mobility with independence. Outcome: Progressing Goal: Patient to perform functional transfers with most appropriate device MOD I. Outcome: Progressing Goal: Patient to ambulate 150 feet with most appropriate device MOD I. Outcome: Progressing Goal: Patient to navigate 4 steps with supervision and most appropriate device/technique Outcome: Progressing Goal: Patient to improve FRANKS >30/56 Outcome: Progressing Goal: Patient to perform HEP for BLE strength and balance with at least 10 reps each independently. Outcome: Progressing Current Functional Status: PT Functional Mobility: 08/13/22: Bed Mobility: CG assist for sit to/fromsupine, increased time needed to sit up and cues to not hold breath. Supervision with verbal cues for technique for rolling. Transfers: CG assist for sit to/from stand with w/w and maximal cues for hand placement. CG/min assist for sit to/from stand with SBQC, cues for upright posture. Ambulation: CG assist for 50' with w/w, cues for R hand to stay on walker, fast/impulsive kimberly, w/w too far in front and poor obstacle avoidance. Stairs: min assist for 4 steps with bilateral handrail, moderate cues for LE sequencing. Increased instability during descent with associated reports of weakness. Strengths: able to tolerate inpatient rehab, good premorbid functional status, good premorbid medical status, living in community premorbidly, and motivated Barriers: lack of family/social support, home layout, weakness, limited safety awareness, decreasedendurance, and impaired balance Overcoming Barriers: Strength training, endurance training, neuromuscular re- education, and overalleducation on functional mobility. Equipment Recommendations: TBD Raudel Ferrara, PT 08/13/22 12:55 PM * Plan of Care - Bell Moffett, SALES HUNTER - 08/13/2022 9:59 AM CDT Problem: Swallowing Goal: LTG - Patient will tolerate the least restrictive diet consistency to allow for safe consumption of daily meals Outcome: Progressing Problem: Communication/Motor Speech Goal: STG - Patient will participate in oral-motor exercises to improve strength Outcome: Progressing Goal: STG - Patient will identify and utilize word retrieval Intervention in structured tasks Outcome: Progressing Goal: STG - Patient will use speech intelligibility Intervention at conversational level Outcome: Progressing * Plan of Care - Shelly Garcia RN - 08/12/2022 10:04 PM CDT Goals: Clinical Goals for the Shift: Remain safe and pain free Summary: Pt is new admission. Demonstrated how to use call light and states understanding to wait for assistance. Keep call light and personal belongings at bedside. Bed alarm on at all times. * Plan of Care - Bell Moffett SLP - 08/12/2022 2:22 PM CDT Problem: Communication/Motor Speech Goal: STG - Patient will identify and utilize word retrieval Intervention in structured tasks Outcome: Progressing Note: With 70% accuracy Problem: Communication/Motor Speech Goal: STG - Patient will use speech intelligibility Intervention at conversational level Outcome: Progressing Note: With 80% intelligibility Problem: Swallowing Goal: LTG - Patient will tolerate the least restrictive diet consistency to allow for safe consumption of daily meals Outcome: Progressing Problem: Communication/Motor Speech Goal: STG - Patient will participate in oral-motor exercises to improve strength Outcome: Progressing Note: 10x daily * Initial Assessments - Yissel Ayers MSW - 08/12/2022 2:02 PM CDT [facility]INA Initial Assessment Interview Note Information Obtained From: Patient (08/12/22 0490) [facility]mission [facility] CVA REHAB IMPAIRMENT CODE: Impairment Code Group: Stroke Stroke: 2 Impression: 82 y.o. right handed woman with past medical history of CAD, NC, SSS s/p Biotronik pacemaker, Atrial fibrillation (previously on Eliquis but not currently, s/p AV node ablation 2018), HLD, HTN, CHF who initially presented with acute right sided hemiparesis, right facial weakness, and became mute. Plan Includes: continued PT/OT/ST/SN and sw in acute rehab setting Primary Source of Transportation: Does the patient need discharge transport arranged?: No Has discharge transport been arranged?: Yes Details of Transportation: Children to transport (08/12/22 1226) Health Insurance Coverage: medicare a/b and BCBS Prescription Coverage: yes Pharmacy: [facility] [place] - [address] [place] [id number] Hours: Not open 24 hours Pt denies issues with meds but per chart review doesn't fill her Eliquis Primary Care Provider: Jaleel Mcgovern MD Prior to Admission: Primary Caregiver: Self Who does the patient or legal guardian want to receive education instruction and discharge plans for after care assistance?: Name Caregiver Name: Mari Jara Relationship to patient: dtr Caregiver Contact Information: [phone] Support System: [employer] Support system contact info (name, phone, availablity): Mari JaraZqpdn-nfs-[phone] Nadia BusbyGlno-xdw-[phone] Taj Evangelista-dtr- [phone] Tabatha GironCryhwqk-sok-[phone] Home Care Services: No Durable Medical Equipment: None Living Arrangements: Alone Type of Residence: Private residence Does patient wish to return to care facility?: No, wishes for other placement Steps in home?: Yes, Outside of home, Yes, Inside home Number of steps inside: 9 steps (steps to the basement.) Number of steps outside: 3 steps (3 steps in front and 3 in back) Medication management: (meds from [facility] in [place]) (08/12/22 1226) SDOH: Transportation: In the past 12 months, has lack of transportation kept you from medical appointments or from getting medications?: No (Data migrated from History) In the past 12 months, has lack of transportation kept you from meetings, work, or from getting things needed for daily living?: No (Data migrated from History) (08/12/22 4542) Financial Resource: How hard is it for you to pay for the very basics like food, housing, medical care, and heating?: Not very hard (Data migrated from History) (08/12/22 135) Housing: In the last 12 months, was there a time when you were not able to pay the mortgage or rent on time?: No In the last 12 months, how many places have you lived?: 1 In the last 12 months, was there a time when you did not have a steady place to sleep or slept in ashelter (including now)?: No (08/12/221352) Social Connections: In a typical week, how many times do you talk on the phone with family, friends, or neighbors?: Three times a week (Data migrated from History) How often do you get together with friends or relatives?: Once a week (Data migrated from History) Are you , , , , never , or living with a partner?: (Data migrated from History) (08/12/22 884) Food Insecurity: Within the past 12 months, you worried that your food would run out before you got the money to buymore.: Never true (Data migrated from History) Within the past 12 months, the food you bought just didn't last and you didn't have money to get more.: Never true (Data migrated from History) (08/12/221351) Alcohol Use: Q1: How often do you have a drink containing alcohol?: Never Q2: How many drinks containing alcohol do you have on a typical day when you are drinking?: Patientdoes not drink Q3: How often do you have six or more drinks on one occasion?: Never (08/12/221352) PHQ Screening Little Interest or Pleasure in Doing Things: Not at all Feeling Down, Depressed, or Hopeless: Not at all PHQ-2 Total Score (If total score is 3 or more points, staff should administer the PHQ-9): 0 (08/12/221352) Little Interest or Pleasure in Doing Things: Not at all Feeling Down, Depressed, or Hopeless: Not at all PHQ-2 Total Score (If total score is 3 or more points, staff should administer the PHQ-9): 0 Trouble Falling or Staying Asleep, or Sleeping too Much: Several days (due to cat jumping on her) Feeling Tired or Having Little Energy: Several days Poor Appetite or Overeating: Not at all Feeling Bad About Yourself - or That You are a Failure or Have Let Yourself or Your Family Down: Not at all (states questions are stupid) Trouble Concentrating on Things, Such as Reading the Newspaper or Watching Television: Not at all Moving or Speaking so Slowly That Other People Could Have Noticed, or the Opposite - Being so Fidgety or Restless That You Have Been Moving Around a lot More Than Usual: Not at all Thoughts That You Would be Better off , or of Hurting Yourself in Some Way: Not at all PHQ-9 Total Score: 2 If you checked off any problems, how difficult have these problems made it for you to do your work,take care of things at home, or get along with other people?: Not difficult at all (08/12/22 1351) Potential discharge needs include: Home Health: Physical therapy, Occupational therapy, Speech therapy (08/12/22 0392) Dialysis: N/a Behavioral Health Services: Behavioral Health Services: No (08/12/22 790) Patient expects to be Discharged to: Private residence, (08/12/22 336) Additional Information: Sw met with pt, and two of her four daughters at the bedside. Pt appears aphasic but able to answer questions. Daughters able to verify information. Pt has four daughter, no DPOA, tend to work together. Per pt Mari would be the main contact. Pt lived alone, was independent,still drove and did her own cooking and cleaning (loves food) . Pt has no equipment. Pt's PCP is Dr Jaleel Mcgovern, gets meds from [facility], Pt's goal is to return home. Dtr from [place] plans on coming back and staying with her for a short time. Patient's Identified Problem/Goal: weakness, aphasic to get well and to work hard Problem: Ensure acute medical needs are met and that patient has a safe discharge plan. Goal: Secure a discharge plan that patient/family are agreeable with and ensure patient has continuum of care. Case management will follow for discharge planning and send referrals as needed. Goals include: To assure continuity of care, To maximize coping skills, To assure patient is in a safe environment and To assure access to community resources. Plan includes: 1. Collaboration with patient, MD, direct care nurse, Director Of Program Management, and other members of the health care team to assure needed interventions completed. 2. Return patient to optimal level of self-care post discharge. 3. Dinkey Engine Firer/Fireman will follow for Discharge Planning - interventions as needed 4. Anticipated level of care at discharge 5. Planned Discharge Disposition KATE Valencia, [facility] [phone] Ph * Plan of Care - Ronald Ramirez RN - 08/12/2022 1:36 PM CDT Goals: Clinical Goals for the Shift: Remain safe and pain free Problem: Activity: Goal: Risk for activity intolerance will decrease Outcome: Progressing Problem: Lack of Knowledge: Goal: Knowledge of diagnostic tests will improve Outcome: Progressing Goal: Knowledge of disease or condition will improve Outcome: Progressing Goal: Knowledge of safety precautions will improve Outcome: Progressing Problem: Safety: Goal: Ability to remain free from injury will improve Outcome: Progressing Goal: Will remain free from falls Outcome: Progressing Problem: Sensory: Goal: Pain level will decrease Outcome: Progressing Problem: Self-Care: Goal: Ability to participate in self-care as condition permits will improve Outcome: Progressing documented in this encounter Plan of Treatment Not on file documented as of this encounter Procedures Procedure Name Priority Date/Time Associated Diagnosis Comments EGFR Routine 08/19/2022 8:25 AM CDT DIFFERENTIAL AUTO Routine 08/19/2022 8:2 5 AM CDT CBC WITH AUTO DIFFERENTIAL Routine 08/19/2022 8:25 AM CDT COMPREHENSIVE METABOLIC PANEL Routine 08/19/2022 8:25 AM CDT EGFR Routine 08/13/2022 9:37 AM CDT DIFFERENTIAL AUTO Routine 08/13/2022 9:3 7 AM CDT CBC WITH AUTO DIFFERENTIAL Routine 08/13/2022 9:37 AM CDT COMPREHENSIVE METABOLIC PANEL Routine 08/13/2022 9:37 AM CDT documented in this encounter Results * eGFR (08/19/2022 8:25 AM CDT) eGFR 77 mL/min/1. 73 m2 ANDREW DAWN Comment: Interpretive Data Reference Interval Normal ?>/= [...] interpretive data was last reviewed 2021. Blood 08/19/2022 8:25 AM CDT 08/19/2022 8:56 AM CDT us Opal Mace MD LAB BLOOD ORDERABL ES Final Result ANDREW DAWN [id number] Department [place] [address] * Differential, auto (08/19/2022 8:25 AM CDT) Neutrophil abs 6.4 1.7 - 6.5 K/cumm [facility] Imm gran abs 0.0 0.0 - 0.1 K/cumm [facility] Lymphocyte abs 2.3 0.8 - 3.3 K/cumm [facility] Monocyte abs 0.7 0.2 - 0.8 K/cumm [facility] Eosinophil abs 0.1 0.0 - 0.5 K/cumm [facility] Basophil abs 0.1 0.0 - 0.1 K/cumm [facility] Neutrophil pct 66.1 % [facility] Comment: Interpretive Data Percent cell count reference ranges are not reported, since discordance with absolute values may lead to misinterpretation of CBC data. Current Interpretive Data was last revised on 2017. Imm gran pct 0.3 % [facility] Comment: Interpretive Data Percent cell count reference ranges are not reported, since discordance with absolute values may lead to misinterpretation of CBC data. Current Interpretive Data was last revised on 2017. Lymphocyte pct 24.1 % [facility] Comment: Interpretive Data Percent cell count reference ranges are not reported, since discordance with absolute values may lead to misinterpretation of CBC data. Current Interpretive Data was last revised on 2017. Monocyte pct 7.7 % [facility] Comment: Interpretive Data Percent cell count reference ranges are not reported, since discordance with absolute values may lead to misinterpretation of CBC data. Current Interpretive Data was last revised on 2017. Eosinophil pct 1.0 % [facility] Comment: Interpretive Data Percent cell count reference ranges are not reported, since discordance with absolute values may lead to misinterpretation of CBC data. Current Interpretive Data was last revised on 2017. Basophil pct 0.8 % [facility] Comment: Interpretive Data Percent cell count reference ranges are not reported, since discordance with absolute values may lead to misinterpretation of CBC data. Current Interpretive Data was last revised on 2017. Blood 08/19/2022 8:25 AM CDT 08/19/2022 8:56 AM CDT us Opal Mace MD LAB BLOOD ORDERABL ES Final Result Performing Organization Address City/[facility]/ZIP Co de Phone Number ANDREW Hernández[address] [place] [address] * (ABNORMAL) CBC with auto differential (08/19/2022 8:25 AM CDT) WBC 9.6 3.8 - 9.9 K/cumm [facility] Hgb 12.7 11.9 - 15.5 g/dL [facility] Hct 40.4 35.6 - 45.5 % [facility] Plt 372 150 - 400 K/cumm [facility] MPV 10.7 9.1 - 12.3 fL [facility] RBC 4.16 3.90 - 5.20 M/cumm [facility] MCV 97.1(H) 81.3 - 96.4 fL [facility] MCH 30.5 27.1 - 33.3 pg [facility] MCHC 31.4(L) 32.3 - 35.7 g/dL [facility] RDW CV 13.6 11.1 - 14.9 % [facility] RDW SD 48.4(H) 35.7 - 48.1 fL [facility] NRBC abs 0.00 0.00 - 0.01 K/cumm [facility] Blood 08/19/2022 8:25 AM CDT 08/19/2022 8:56 AM CDT us Opal Mace MD LAB BLOOD ORDERABL ES Final Result Performing Organization Address City/[facility]/ZIP Co de Phone Number ANDREW DAWN [address] [place] [place] [address] * (ABNORMAL) Comprehensive metabolic panel (08/19/2022 8:25 AM CDT) Sodium 142 135 - 145 mmol/L [facility] Potassium, pl 3.9 3.3 - 4.9 mmol/L [facility] Chloride 106 97 - 110 mmol/L [facility] CO2 23 22 - 32 mmol/L [facility] Anion gap 13 2 - 15 mmol/L [facility] BUN 25 8 - 25 mg/dL [facility] Creatinine 0.77 0.60 - 1.10 mg/dL [facility] Glucose 120 70 - 199 mg/dL [facility] Comment: [...] interpretive data was last revised 2022. Calcium 9.6 8.5 - 10.3 mg/dL [facility] Bilirubin, total 0.7 0.1 - 1.2 mg/dL [facility] Protein, pl 7.2 6.5 - 8.5 g/dL [facility] Albumin 3.9 3.5 - 5.0 g/dL [facility] Alk phos 39(L) 40 - 130 Units/L [facility] ALT 16 7 - 45 Units/L [facility] AST 27 10 - 45 Units/L [facility] Blood 08/19/2022 8:25 AM CDT 08/19/2022 8:56 AM CDT Opal Mace MD LAB BLOOD ORDERABL Final Result [facility] [id number] [place] [address] * eGFR (08/13/2022 9:37 AM CDT) [facility] eGFR 78 mL/min/1. 73 m2 [facility] Comment: Interpretive Data Reference Interval Normal ?>/= [...] interpretive data was last reviewed 2021. Blood 08/13/2022 9:37 AM CDT 08/13/2022 9:51 AM CDT us Opal Mace MD LAB BLOOD ORDERABL ES Final Result [facility] [id number] [place] [address] * (ABNORMAL) Differential, auto (08/13/2022 9:37 AM CDT) Neutrophil abs 6.0 1.7 - 6.5 K/cumm [facility] Imm gran abs 0.1 0.0 - 0.1 K/cumm [facility] Lymphocyte abs 1.6 0.8 - 3.3 K/cumm [facility] Monocyte abs 1.0(H) 0.2 - 0.8 K/cumm [facility] Eosinophil abs 0.2 0.0 - 0.5 K/cumm [facility] Basophil abs 0.1 0.0 - 0.1 K/cumm [facility] Neutrophil pct 67.2 % [facility] Comment: Interpretive Data Percent cell count reference ranges are not reported, since discordance with absolute values may lead to misinterpretation of CBC data. Current Interpretive Data was last revised on 2017. Imm gran pct 1.0 % [facility] Comment: Interpretive Data Percent cell count reference ranges are not reported, since discordance with absolute values may lead to misinterpretation of CBC data. Current Interpretive Data was last revised on 2017. Lymphocyte pct 18.3 % [facility] Comment: Interpretive Data Percent cell count reference ranges are not reported, since discordance with absolute values may lead to misinterpretation of CBC data. Current Interpretive Data was last revised on 2017. Monocyte pct 10.7 % [facility] Comment: Interpretive Data Percent cell count reference ranges are not reported, since discordance with absolute values may lead to misinterpretation of CBC data. Current Interpretive Data was last revised on 2017. Eosinophil pct 1.8 % [facility] Comment: Interpretive Data Percent cell count reference ranges are not reported, since discordance with absolute values may lead to misinterpretation of CBC data. Current Interpretive Data was last revised on 2017. Basophil pct 1.0 % [facility] Comment: Interpretive Data Percent cell count reference ranges are not reported, since discordance with absolute values may lead to misinterpretation of CBC data. Current Interpretive Data was last revised on 2017. Blood 08/13/2022 9:37 AM CDT 08/13/2022 9:51 AM CDT Opal Mace MD LAB BLOOD ORDERABL ES Final Result [facility] [id number] Department of Laboratories [place], [place] [id number] * (ABNORMAL) CBC with auto differential (08/13/2022 9:37 AM CDT) WBC 8.9 3.8 - 9.9 K/cumm [facility] Hgb 12.2 11.9 - 15.5 g/dL [facility] Hct 38.4 35.6 - 45.5 % [facility] Plt 335 150 - 400 K/cumm [facility] MPV 10.4 9.1 - 12.3 fL [facility] RBC 3.97 3.90 - 5.20 M/cumm [facility] MCV 96.7(H) 81.3 - 96.4 fL [facility] CH MCH 30.7 27.1 - 33.3 pg [facility] CH MCHC 31.8(L) 32.3 - 35.7 g/dL [facility] RDW CV 13.2 11.1 - 14.9 % [facility] RDW SD 47.0 35.7 - 48.1 fL [facility] NRBC abs 0.00 0.00 - 0.01 K/cumm [facility] Blood 08/13/2022 9:37 AM CDT 08/13/2022 9:51 AM CDT us Opal Mace MD LAB BLOOD ORDERABL ES Final Result [facility] [id number] Department [place] [address] * (ABNORMAL) Comprehensive metabolic panel (08/13/2022 9:37 AM CDT) Sodium 139 135 - 145 mmol/L [facility] Potassium, pl 4.0 3.3 - 4.9 mmol/L [facility] Chloride 102 97 - 110 mmol/L [facility] CH CO2 26 22 - 32 mmol/L [facility] Anion gap 11 2 - 15 mmol/L [facility] BUN 23 8 - 25 mg/dL [facility] Creatinine 0.76 0.60 - 1.10 mg/dL [facility] Glucose 105 70 - 199 mg/dL [facility] Comment: Interpretive Data Fasting glucose >/= 126 [...] Calcium 9.2 8.5 - 10.3 mg/dL [facility] Bilirubin, total 0.5 0.1 - 1.2 mg/dL [facility] Protein, pl 6.9 6.5 - 8.5 g/dL [facility] Albumin 3.5 3.5 - 5.0 g/dL [facility] Alk phos 35(L) 40 - 130 Units/L [facility] ALT 13 7 - 45 Units/L [facility] AST 28 10 - 45 Units/L [facility] Blood 08/13/2022 9:37 AM CDT 08/13/2022 9:51 AM CDT us Opal Mace MD LAB BLOOD ORDERABL ES Final Result ANDREW DAWN [address] [place] [address] documented in this encounter Visit Diagnoses Diagnosis 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)- Primary Acute CVA (cerebrovascular accident) (HCC) Acute CVA (cerebrovascular accident) (HCC) Severe malnutrition (CMS/HCC) Nutritional marasmus documented in this encounter Admitting Diagnoses Diagnosis Acute CVA (cerebrovascular accident) (HCC) documented in this encounter Administered Medications Inactive Administered Medications - up to 3 most recent administrations Medication Order MAR Action Action Date Dose Rate Site acetaminophen (TYLENOL) tablet 650 mg 650 mg, oral, Every 6 hours PRN, 1st line for pain, fever, fever greater than 38.3 C, Starting on Fri08/12/22 at 1221, Indications: Fever, PainIndications:Fever,Pain apixaban (ELIQUIS) tablet 5 mg 5 mg, oral, Every 12 hours scheduled, First dose on Fri08/12/22 at 2100, Nurse to discontinue heparin infusion order and associated bolus at first administration of apixaban using 'order condition met' order source, Indications: atrial fibrillationIndications:atrial fibrillation Given 08/23/2022 8:44 AM CDT 5 mg Given 08/22/2022 7:32 PM CDT 5 mg Given 08/22/2022 9:16 AM CDT 5 mg aspirin chewable tablet 81 mg 81 mg, oral, Daily, First dose on Fri08/13/22 at 0900 Given 08/23/2022 8:43 AM CDT 81 mg Given 08/22/2022 9:16 AM CDT 81 mg Given 08/21/2022 8:21 AM CDT 81 mg calcium carbonate (TUMS) chewable tablet 1,000 mg 1,000 mg (400 mg of elemental calcium), oral, 3 times daily PRN, indigestion, Starting on Fri08/12/22 at 1222 dapagliflozin (FARXIGA) tablet 10 mg 10 mg, oral, Daily, First dose on Fri08/13/22 at 0900, Indications: Heart FailureIndications:Heart Failure Given 08/23/2022 8:43 AM CDT 10 mg Given 08/22/2022 9:15 AM CDT 10 mg Given 08/21/2022 8:22 AM CDT 10 mg fluticasone propionate (FLONASE) 50 mcg/actuation nasal spray 1 spray 1 spray, each nostril, Daily, First dose on Fri08/16/22 at 1745 Given 08/23/2022 8:47 AM CDT 1 spray Given 08/22/2022 9:17 AM CDT 1 spray Given 08/21/2022 1:14 PM CDT 1 spray furosemide (LASIX) tablet 40 mg 40 mg, oral, Daily, First dose on Fri08/13/22 at 0900 Given 08/23/2022 8:43 AM CDT 40 mg Given 08/22/2022 9:15 AM CDT 40 mg Given 08/21/2022 8:23 AM CDT 40 mg losartan (COZAAR) tablet 12.5 mg 12.5 mg, oral, Daily, First dose on Fri08/13/22 at 0900, On hold since Fri08/13/2022 at 0905 until manually unheld Given 08/13/2022 8:21 AM CDT 12.5 mg metoprolol XL (TOPROL-XL) extended release tablet 12.5 mg 12.5 mg, oral, Daily, First dose on Fri08/13/22 at 0900, Tablets that are scored may be split, but do not crush, chew, dissolve, open or otherwise manipulate tablet/capsule. Given 08/23/2022 8:43 AM CDT 12.5 mg Given 08/22/2022 9:15 AM CDT 12.5 mg Given 08/21/2022 8:20 AM CDT 12.5 mg ondansetron (ZOFRAN) tablet 4 mg 4 mg, oral, 3 times daily PRN, nausea, vomiting, Starting on Fri08/12/22 at 1222 Given 08/12/2022 2:55 PM CDT 4 mg ondansetron ODT (ZOFRAN-ODT) disintegrating tablet 4 mg 4 mg, oral, 3 times daily PRN, nausea, vomiting, Starting on Fri08/14/22 at 0955 Given 08/14/2022 10:00 AM CDT 4 mg polyethylene glycol (MIRALAX) packet 17 g 17 g, oral, Daily, First dose on Fri08/13/22 at 0900, Indications: constipationIndications:constipation Given 08/14/2022 8:30 AM CDT 17 g Given 08/13/2022 8:22 AM CDT 17 g ramelteon (ROZEREM) tablet 8 mg 8 mg, oral, Nightly PRN, sleep, Starting on Fri08/12/22 at 1222, Indications: Sleep-Onset InsomniaIndications:Sleep-Onset Insomnia Given 08/20/2022 8:04 PM CDT 8 m g Given 08/19/2022 8:19 PM CDT 8 mg Given 08/17/2022 8:24 PM CDT 8 mg rosuvastatin (CRESTOR) tablet 10 mg 10 mg, oral, Nightly, First dose on Fri08/12/22 at 2100 Given 08/22/2022 7:32 PM CDT 10 mg Given 08/21/2022 9:00 PM CDT 10 mg Given 08/20/2022 8:04 PM CDT 10 mg senna-docusate (PERICOLACE) 8.6-50 mg per tablet 1 tablet 1 tablet, oral, 2 times daily PRN, constipation, Starting on Fri08/12/22 at 1221, Indications: constipationIndications:constipation simethicone (MYLICON) chewable tablet 80 mg 80 mg, oral, 3 times daily PRN, flatulence, Starting on Fri08/12/22 at 1222 spironolactone (ALDACTONE) split tablet 12.5 mg 12.5 mg, oral, Daily, First dose on Fri08/13/22 at 0900 Given 08/23/2022 8:43 AM CDT 12.5 mg Given 08/22/2022 9:15 AM CDT 12.5 mg Given 08/21/2022 8:19 AM CDT 12.5 mg traZODone (DESYREL) tablet 25 mg 25 mg, oral, Nightly PRN, sleep, Starting on Fri08/12/22 at 1323 documented in this encounter Discontinued Medications Medication Sig Discontinue Reason Start Date End Da te apixaban (ELIQUIS) 5 mg tabletIndications:atria l fibrillation Take 1 tablet (5 mg total) by mouth every 12 (twelve) hours Reorder 08/11/2022 08/22/2022 rosuvastatin (CRESTOR) 10 mg tablet Take 1 tablet (10 mg total) by mouth nightly Reorder 08/11/2022 08/22/2022 metoprolol XL (TOPROL-XL) 25 mg extended release tablet Take 0.5 tablets (12.5 mg total) by mouth daily Reorder 08/12/2022 08/22/2022 aspirin 81 mg chewable tablet Take 1 tablet (81 mg total) by mouth daily Reorder 08/12/2022 08/22/2022 spironolactone (ALDACTONE) 25 mg tablet Take 0.5 tablets (12.5 mg total) by mouth daily Reorder 08/12/2022 08/22/2022 furosemide (LASIX) 40 mg tablet Take 1 tablet (40 mg total) by mouth daily Reorder 08/12/2022 08/22/2022 dapagliflozin (FARXIGA) 10 mg tablet Take 1 tablet (10 mg total) by mouth daily Reorder 08/11/2022 08/22/2022 losartan (COZAAR) 25 mg tablet Take 0.5 tablets (12.5 mg total) by mouth daily Stop Taking at Discharge 08/12/2022 08/23/2022 documented as of this encounter Active and Recently Administered Medications Times are shown in CDT. Scheduled Medication Order 08/21/2022 08/22/2022 08/23/2022 apixaban (ELIQUIS) tablet 5 mg 5 mg, oral, Every 12 hours scheduled, First dose on Fri08/12/22 at 2100, Nurse to discontinue heparin infusion order and associated bolus at first administration of apixaban using 'order condition met' order source, Indications: atrial fibrillation 0821 (Given - Provider: Sailaja Adam RN)2100 (Given - Provider: Carol Ann Diaz RN) 0916 (Given - Provider: Mellissa Caballero RN)193 (Given - Provider: Natty Christianson RN) 0844 (Given - Provider: Mellissa Caballero RN) aspirin chewable tablet 81 mg 81 mg, oral, Daily, First dose on Fri08/13/22 at 0900 0821 (Given - Provider: Sailaja Adam RN) 0916 (Given - Provider: Mellissa Caballero RN) 0843 (Given - Provider: Mellissa Caballero RN) dapagliflozin (FARXIGA) tablet 10 mg 10 mg, oral, Daily, First dose on Fri08/13/22 at 0900, Indications: Heart Failure 0822 (Given - Provider: Sailaja Adam RN) 0915 (Given - Provider: Mellissa Caballero RN) 0843 (Given - Provider: Mellissa Caballero RN) fluticasone propionate (FLONASE) 50 mcg/actuation nasal spray 1 spray 1 spray, each nostril, Daily, First dose on Fri08/16/22 at 1745 1314 (Given - Provider: Sailaja Adam RN) 0917 (Given - Provider: Mellissa Caballero RN) 0847 (Given - Provider: Mellissa Caballero RN) furosemide (LASIX) tablet 40 mg 40 mg, oral, Daily, First dose on Fri08/13/22 at 0900 0823 (Given - Provider: Sailaja Adam RN) 0915 (Given - Provider: Mellissa Caballero RN) 0843 (Given - Provider: Mellissa Caballero RN) metoprolol XL (TOPROL-XL) extended release tablet 12.5 mg 12.5 mg, oral, Daily, First dose on Fri08/13/22 at 0900, Tablets that are scored may be split, but do not crush, chew, dissolve, open or otherwise manipulate tablet/capsule. 0820 (Given - Provider: Sailaja Adam RN) 0915 (Given - Provider: Mellissa Caballero RN) 0843 (Given - Provider: Mellissa Caballero RN) rosuvastatin (CRESTOR) tablet 10 mg 10 mg, oral, Nightly, First dose on Fri08/12/22 at 2100 2100 (Given - Provider: Carol Ann Diaz RN) 1932 (Given - Provider: Natty Christianson RN) spironolactone (ALDACTONE) split tablet 12.5 mg 12.5 mg, oral, Daily, First dose on Fri08/13/22 at 0900 0819 (Given - Provider: Sailaja Adam RN) 0915 (Given - Provider: Mellissa Caballero RN) 0843 (Given - Provider: Mellissa Caballero RN) PRN Medication Order 08/21/2022 08/22/2022 08/23/2022 acetaminophen (TYLENOL) tablet 650 mg 650 mg, oral, Every 6 hours PRN, 1st line for pain, fever, fever greater than 38.3 C, Starting on Fri08/12/22 at 1221, Indications: Fever, Pain calcium carbonate (TUMS) chewable tablet 1,000 mg 1,000 mg (400 mg of elemental calcium), oral, 3 times daily PRN, indigestion, Starting on Fri08/12/22 at 1222 ondansetron ODT (ZOFRAN-ODT) disintegrating tablet 4 mg 4 mg, oral, 3 times daily PRN, nausea, vomiting, Starting on Fri08/14/22 at 0955 ramelteon (ROZEREM) tablet 8 mg 8 mg, oral, Nightly PRN, sleep, Starting on Fri08/12/22 at 1222, Indications: Sleep-Onset Insomnia senna-docusate (PERICOLACE) 8.6-50 mg per tablet 1 tablet 1 tablet, oral, 2 times daily PRN, constipation, Starting on Fri08/12/22 at 1221, Indications: constipation simethicone (MYLICON) chewable tablet 80 mg 80 mg, oral, 3 times daily PRN, flatulence, Starting on Fri08/12/22 at 1222 traZODone (DESYREL) tablet 25 mg 25 mg, oral, Nightly PRN, sleep, Starting on 08/12/22 at 1323 documented in this encounter Orders Medications Ordered That Flaco ht Not Have Been Administered Count Last Ordered Date First Ordered Date acetaminophen (TYLENOL) tablet 650 mg 1 calcium carbonate (TUMS) michela wable tablet 1,000 mg 1 08/12/2022 senna-docusate (PERICOLACE) 8.6-50 mg per tablet 1 tablet 1 08/12/2022 simethicone (MYLICON) chewab le tablet 80 mg 1 08/12/2022 traZODone (DESYREL) tablet 25 mg 1 08/13/19 23 General Supply Count Last Ordered Date First Or dered Date WALKER 1 08/21/2022 Nursing Count Last Ordered Date First Orde red Date WEIGH PATIENT 1 08/12/2022 Consult Count Last Ordered Date First Orde red Date IP CONSULT TO NUTRITION SERVICES 1 08/13/19 IP CONSULT TO SOCIAL WORK 1 08/12/2022 Admission Count Last Ordered Date First Orde red Date ADMIT TO INPATIENT REHAB 1 08/12/2022 Discharge Count Last Ordered Date First Orde red Date DISCHARGE PATIENT 1 08/23/2022 CORE MEASURES Count Last Ordered Date First Ord ered Date REASON FOR NO VTE PROPHYLAXIS AT ADMISSION 1 08/12/2022 documented in this encounter Care Teams Landscaper Relationship Specialty Start Date End Date Jaleel Mcgovern MD PCP - General Family Practice 07/18/22 Reynaldo Flannery DO Consulting Physician Cardiology 09/26/17 Guanakito Holland MD Consulting Physician Cardiovascular Disease 07/29/18 documented as of this encounter
--- OUTSIDE RECORDS SUMMARY | 2024-04-11 06:37 | XMS_ITS | Encounter Summary ---
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) MCA OCCLUSION: THROMBECTOMY Procedures NA Referral ID Status Reason Start Date Expiration Date Visits Re quested Visits Authorized [id number] 1 1 Encounter Details Date Type Department Care Team (Late st Contact Info) Description 08/03/2022 3:45 PM CDT - 08/12/2022 11:21 AM CDT Hospital Encounter [facility] [address] [place] [address] Jay Coleman MD [address] [place] [address] Kamlesh Steele MD [address] [place] [address] Citlaly Crump MD [address] [place] [address] Adryan Bailon MD [address] [place] [address] Foreign Melendez MD PhD [address] [place] [address] 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) (Primary Dx); Ischemic stroke (HCC) Discharge Disposition: Discharge to an IP Rehab facility Social History Tobacco Use Types Packs/Day Years [...] Date Recorded PHQ-2 Total Score 0 08/12/2022 [facility] of Occupat ional Health - Occupational Stress [...] on file 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 Gender Identity Female 10/09/2022 9:08 AM CDT Sexual Orientation Choose not to disclose 2022 9:08 AM CDT documented as of this encounter Last Filed Vital Signs Vital Sign Reading Time Taken Comments Blood Pressure 135/56 08/12/2022 8:40 AM CDT Pulse 64 08/12/2022 8:40 AM CDT Temperature 36.4 ??C (97.5 ??F) 08/12/2022 4:25 AM CD T Respiratory Rate 18 08/12/2022 4:25 AM CDT Oxygen Saturation 96% 08/12/2022 4:26 AM CDT Inhaled Oxygen Concentration - - Weight 71.5 kg (157 lb 10.1 oz) 023 12:10 AM CDT Height 154.9 cm (5' 1 ) 08/03/2022 7:30 PM CDT Body Mass Index 29.78 08/03/2022 7:30 PM CDT documented in this encounter Discharge Summaries * Capri Curran MD - 08/12/2022 10:15 AM CDT Inpatient Discharge Summary BRIEF OVERVIEW Admitting Provider: Citlaly Crump MD Discharge Provider: Foreign Melendez MD PhD Primary Care Physician at Discharge: Jaleel Mcgovern MD [phone] Admission Date: 08/03/2022 Discharge Date: 08/12/2022 Admission Location: 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 DETAILS OF HOSPITAL STAY Presenting Problem/History of Present Illness: Ms Giron is a 82y/o female with PMH of CAD, AR, SSS s/p Biotronik pacemaker, Atrial fibrillation (previously on Eliquis, s/p AV node ablation 2018), HLD, HTN, CHF who presents to the NNICU with acute L MCA occlusion s/p TNK and MT with TICI 2B, 1 pass aspiration. Per chart review, she was in her usual state of health when she was out eating lunch at 13:05 when she developed acute right sided hemiparesis, right facial weakness, and became mute. EMS was called and upon arrival she was noted to have a BP of 68/31. She was taken to [facility] for further evaluation as a Code [place]. Her vital signs upon arrival were: 36.1C, HR 74, RR 23, 90/45, 98% on RA with a BG of 137. She was given a 1L bolus and her BP improved to 109/89. Her initial NIH was 23 (mute, gaze palsy, right UE/LE hemiparesis, neglect, facial weakness.) STAT HCT with large hyperdense MCA sign, no hemorrhage. Head/Neck CTA with near complete occlusion of the L M1 segment with faint contrast filling in the cortical M2/M3 branches with moderate stenosis of the proximal R ICA (at least 50%) and high-grade stenosis of the proximal L ICA (approx. 80%.) Telestroke was consulted and after medication review with local pharmacy it was noted that she no longer takes this medication. Given her symptoms and LVO it was decided to proceed with TNK. She was given a 17mg bolus of TNK at 14:28 and transferred to [facility] ED for mechanical thrombectomy evaluation. Upon arrival to [facility] ED her vital signs were: HR 82, 98/68, RR 20 with a transfer NIH of 16. Per Neurology consult service, she would open her eyes, regard on the left, intermittently follow simple commands, aphasic, and was now moving her right side antigravity with right sided neglect. Her admission labs were significant for Hgb drop 13.0 to 9.6 with associated Platelet frop from 185 to 116 withmultiple electrolyte disturbances that were suspicious for lab error. Being that she was s/p TNK with hypotension and lowered Hgb, she was sent for repeat imaging. Repeat HCT negative for intracranial hemorrhage. CT chest/abdomen/pelvis demonstrated no evidence of acute bleeding within the chest, abdomen, or pelvis. The was an extensive atherosclerotic calcification of the abdominal aorta and splanchnic arteries with at least moderate narrowing of the distal superior mesenteric artery. He patient was taken to thrombectomy with initial a right fem access but unable to pass and tried the left femoral access. The patient arrived to NNICU with acute L MCA occlusion s/p TNK and MT with TICI 2B. Intra-op, she was an easy airway and received 400 cc crystalloids, 4 mg zofran, propofol, and alysa-synephrine. EBL 50 ml. Hospital Course: Brief Patient Summary Ms. Giron is a 82 y.o. right handed woman with past medical history of CAD, AR, SSS s/p Biotronikpacemaker, Atrial fibrillation (previously on Eliquis but not currently, s/p AV node ablation 2018), HLD, HTN, CHF who initially presented with acute right sided hemiparesis, right facial weakness, and became mute. #Acute left MCA stroke s/p TNK and mechanical thrombectomy TICI 2B Stroke risk factors: Age > 55, hypertension, dyslipidemia, atrial fibrillation, and carotid artery stenosis Notable home medications (i.e., anticoagulation): Previously on Eliquis but has not been filling per pharmacy report Localization and etiology: Ms. Giron presents with right hemiparasis and global aphasia that localizes to the Left MCA territory. Etiologies highest on the differential for consideration per TOAST criteria include: ymtikr-jo-ngkjls embolism or cardioembolism. Cardioembolism is most likely as she has a pacemaker in her right ventricle causing dyssynchornous squeeze of her left ventricle which could lead to clot formation, though no definitive thrombi were seen on TTE. She was also found to have 80% stenosis of her left ICA therefore artery to artery embolism is also possible. She was a GO for TNK, and also a GO for thrombectomy, achieving TICI2B flow with 1 pass Pertinent Initial Work-Up: - Non-contrast head CT: hyperdense L MCA, no hemorrhage - CTA of the head and neck: L M1 cutoff; proximal L ICA stenosis estimated 80%, R ICA stenosis 50% - 4 vessel angiogram: left carotid stenosis 50% Work-up to identify risk factors for stroke included the following: - HbA1c 6.0%, LDL 68. - EKG on admission showed V paced rhythm at 68 - Telemetry monitoring throughout the admission showed paced rhythm - TTE showed EF 20%, dyssynchronous LV contraction 2/2 RV pacing, no definite thrombus Treatment/Disposition/Follow-Up The patient was started on atorvastatin 80 mg PO qHS (SPARCL trial). The current [place] [employer] guidelines recommend long-term treatment with a high-intensity statin even in patient's with LDL level <100, if tolerated. (The SPARCL trial, Alex et al. 2010, showed that statin treatment should not be titrated to LDL level.) Additionally, the patient was initially started on ASA 325 daily for secondary prevention (SPS3 trial: lacunar infarcts). She was transitioned to Eliquis 5mg BID on 08/10 after she passed her swallow test and there was no longer a need for G-tube procedure. She was also continued on Aspirin 81mg daily for her cardiovascular comorbidities. A SMART consult was performed. Disposition: Per PT/OT evaluation, the patient was discharged to [facility]. Follow-up: The patient will follow-up in the outpatient [facility] The contact information of the clinic is listed below: [facility] ([facility]) [facility] [address] [place] [address] Other medical problems addressed during this hospitalization: #Hyperlipidemia LDL on admission was 68. Goal LDL for secondary stroke prevention is <70. She has previously refused anti-lipid medication reporting feeling unwell on medicaiton and with muscle pain without weakness. # CAD s/p AR with stent placement (2013) # HFrEF (LVEF 20%, was LVEF 40% in 2019) She follows with Dr. Hernandez [facility] Cardiology - last seen 07/18/22 in office. Home regimen: Furosemide 20mg daily, Spironolactone 25mg daily, Entresto 24-26 mg BID ((not being filled). Her last TTE documented 12/2019: mild global LV hypokinesis with EF 40% which is further reduced this admission. (08/06 TTE showed Frequent PVCs. Normal LV volume, mass. Severe global LV systolic dysfunction (LVEF 20%). Dyssynchronous LV contraction c/w RV pacing. Indeterminate diastolic function. Cardiology was consulted during this admission and patient was ultimately discharged on: Lasix 40mg daily, Losartan 25mg daily, Metop XL 12.5mg daily, Spironolactone 12.5mg daily, and Farxiga 10mg daily. She was also continued on Aspirin 81mg daily. # Chronic atrial Fibrillation s/p AV node ablation (01/06/2019) # SSS s/p pacemaker Has Biotronik pacemaker placed 07/2018 mode DDD with rate set at 70 BPM. Last interrogated 07/02/2022, which showed 60% battery life remaining, demonstrated ???100% Afib burden?? . Currently rate controlled without medications and V- paced. Per prior family reports, was prescribed Eliquis 5 mg BID and taking intermittently, however her pharmacy ([facility]) indicates she does not fill this medication and her daughter indicates she does not fill at other pharmacies. She was restarted on Eliquis on 08/10. # Troponemia, resolved Trop I hs peaked at 230 (105-->140-->230-->225) - no further trend. Likely secondary to demand ischemia in context of acute stroke, intubation however does have CAD with history of stent. # Several bilateral femoral artery stenosis, incidental finding # Left subclavian occlusion, incidental finding Subclavian finding noted on CTA. Femoral stenosis seen in diagnostic angiogram. Patient can follow up outpatient with PCP, or PCP can refer patient to vascular surgery. # Hx of Anxiety In past had Rx for alprazolam and reportedly took it rarely, this is not an active medication and not filled at pharmacy. Monitored clinically, avoided adding new medications that could confound neurologic exam Medication Changes During Admission - START Eliquis 5 mg BID - START Aspirin 81mg daily - CHANGE to Lasix 40mg daily - START Losartan 25mg daily - START Metop XL 12.5mg daily - CHANGE to Spironolactone 12.5mg daily - START Farxiga 10mg daily - STOP Entresto Disposition/Home Health Needs: IPR Active Issues Requiring Follow-up: Follow up in [facility] clinic (referral placed) Follow up with cardiology (has appt 01/23/2023) Test Results Pending at Discharge: Operative Procedures Performed: Other Procedures: See hospital course above Pertinent Test Results: See hospital course above Discharge Details Physical Exam at Discharge: Discharge Condition: stable Pulse: 69 Resp: 19 BP: 95/51 Temp: 36.4 ??C (97.5 ??F) Weight: 71.5 kg (157 lb 10.1 oz) Pertinent Exam Findings at Discharge: Mental status: Alert. Oriented to person, place, time, and situation by choice Language: Speaks in appropriate one word phrases. Follows one step central and peripheral commands,unable to repeat, naming intact to high frequency objects but struggles with low frequency objects. Cranial nerves: PERRL, EOMI without gaze preference, visual krause full to finger wiggling, sensation intact to light touch in V1-V3 distributions, right facial droop, hearing intact to conversation,palate elevates symmetrically, mild dysarthria. Motor: R UE 4/5 LUE 5/5 throughout. R LE antigravity, LLE 5/5 throughout. Sensory: reports decreased sensation to light touch on right without extinction Coordination: Mnlnnd-kbab-plbbxn on left ataxia. Reflexes: deferred Gait: deferred Discharge Disposition: IPR Code Status at Discharge: No CPR Discharge Instructions: You were admitted to the hospital because you had a stroke. Please make the following changes to your medication list Medication Changes During Admission - START Eliquis 5 mg BID - START Aspirin 81mg daily - START Losartan 25mg daily - START Metop XL 12.5mg daily - START Farxiga 10mg daily - CHANGE to Lasix 40mg daily - CHANGE to Spironolactone 12.5mg daily - STOP Entresto We have placed a referral for you to follow up in our clinic. Please reach out to the clinic below if you have not heard from them to set up your appointment within 7 day. Discharge Medications: Current Medications TAKE these medications apixaban 5 mg tablet Take 1 tablet (5 mg total) by mouth every 12 (twelve) hours For: atrial fibrillation Commonly known as: ELIQUIS aspirin 81 mg chewable tablet Take 1 tablet (81 mg total) by mouth daily Start taking on: August 12, 2022 cholecalciferol 2000 unit tablet take 1 tablet by oral route every day Commonly known as: VITAMIN D-3 cyanocobalamin 100 mcg tablet Take 1 tablet (100 mcg total) by mouth daily For: prevention of vitamin B12 deficiency Commonly known as: Vitamin B-12 dapagliflozin 10 mg tablet Take 1 tablet (10 mg total) by mouth daily Commonly known as: FARXIGA furosemide 40 mg tablet Take 1 tablet (40 mg total) by mouth daily Commonly known as: LASIX Start taking on: August 12, 2022 losartan 25 mg tablet Take 0.5 tablets (12.5 mg total) by mouth daily Commonly known as: COZAAR Start taking on: August 12, 2022 metoprolol XL 25 mg extended release tablet Take 0.5 tablets (12.5 mg total) by mouth daily Commonly known as: TOPROL-XL Start taking on: August 12, 2022 rosuvastatin 10 mg tablet Take 1 tablet (10 mg total) by mouth nightly Commonly known as: CRESTOR spironolactone 25 mg tablet Take 0.5 tablets (12.5 mg total) by mouth daily Commonly known as: ALDACTONE Start taking on: August 12, 2022 Outpatient Follow-Up: Future Appointments Date Time Provider Department Center 10/02/2022 10:[address] [facility] DEVICE CHECK [facility] Specialty 01/23/2023 2:15 PM Mannie Hernandez MD [facility] Specialty Contact Information for Follow-ups [facility] [address] [facility] [place] [address] Next Steps: Follow up Comments: Post-stroke follow-up with Dr. Zapien, Dr. Curran, or Dr. Hawkins. Questions: Please select the performing region: [facility] Please select the performing department: [facility] # of visits: 1 Referral Status: Pending Authorization Cosigned by Foreign Melendez MD PhD at 08/12/2022 12:16 PM CDT Associated attestation - Foreign Melendez MD PhD - 08/12/2022 12:16 PM CDT I have seen and examined the patient on 08/12/22. I agree with the findings and plan of care as documented in the resident's/fellow's note. Instructions were reviewed and all patient and family questions were answered. OK to DC today. documented in this encounter Discharge Instructions * Discharge Instructions* Chet Perez MD PhD - 08/11/2022 12:12 PM CDT You were admitted to the hospital because you had a stroke. Please make the following changes to your medication list Medication Changes During Admission - START Eliquis 5 mg BID - START Aspirin 81mg daily - START Losartan 25mg daily - START Metop XL 12.5mg daily - START Farxiga 10mg daily - CHANGE to Lasix 40mg daily - CHANGE to Spironolactone 12.5mg daily - STOP Entresto We have placed a referral for you to follow up in our clinic. Please reach out to the clinic below if you have not heard from them to set up your appointment within 7 day. [facility] [place] [facility] [address] [place] [address], [address] [place] [address] Please follow up with your Environmental Journalist (Mannie Hernandez MD). Please call [phone] to schedule a follow up appointment. documented in this encounter Medications at Time [...] (twelve) hours 60 tablet 11 08/11/2022 3 apixaban (ELIQUIS) 5 mg tabletIndications: atrial fibrillation Take 1 tablet (5 mg total) by mouth every 12 (twelve) hours 180 tablet 08/22/2022 4 aspirin 81 mg chewable tablet Take 1 tablet (81 mg total) by mouth daily 30 tablet 11 08/12/2022 3 dapagliflozin (FARXIGA) 10 mg tablet Take 1 tablet (10 mg total) by mouth daily 30 tablet 08/11/2022 3 dapagliflozin (FARXIGA) 10 mg tabletIndications: [...] 08/12/2022 3 documented as of this encounter Ordered Prescriptions Prescription Sig Dispense Quantity Refills Last Filled Start Date End Date dapagliflozin (FARXIGA) 10 mg tablet Take 1 tablet (10 mg total) by mouth daily 30 tablet 08/11/2022 3 furosemide (LASIX) 40 mg tablet Take 1 tablet (40 mg total) by mouth daily 30 tablet 08/12/2022 3 spironolactone (ALDACTONE) 25 mg tablet Take 0.5 tablets (12.5 mg total) by mouth daily 15 tablet 08/12/2022 3 aspirin 81 mg chewable tablet Take [...] by mouth nightly 30 tablet 08/11/2022 3 apixaban (ELIQUIS) 5 mg tabletIndications: atrial fibrillation Take 1 tablet (5 mg total) by mouth every 12 (twelve) hours 60 tablet 08/11/2022 3 empagliflozin (JARDIANCE) 10 mg tablet Take 1 tablet (10 mg total) by mouth daily 30 tablet 08/06/2022 3 dapagliflozin (FARXIGA) 10 mg tablet Take 1 tablet (10 mg total) by mouth daily 30 tablet 08/06/2022 3 documented in this encounter Discharge Disposition Disposition Code Departure Means Destination Comment s Discharge to an Rehab facility [facility] documented in this encounter Progress Notes * Yun Keenan RN - 08/12/2022 10:26 AM CDT 08/12/22 1024 Discharge Summary Chart reviewed For Medical Necessity Does patient have a planned readmission to hospital planned? No Discharge Disposition Acute Rehab Specify Facility [facility] ([facility] Room 205 Facility Contact Number phone# [phone] fax# [phone] Barrett Discharge Records Transfer Form Completed;Chart Copied Equipment/Provider Needs No Home Needs Identified Discharge Additional Assistance Does the patient need discharge transport arranged? Yes Has discharge transport been arranged? Yes Details of Transportation [facility] at [phone] at 10:30 a.m. D/C Transport Anticipated Date 08/12/22 D/C Transport Anticipated Time 1030 Discharge Transportation Communication Mode of transport has been discussed with the patient/family. All are agreeable to the plan and understand their responsibilities to ensure the safe transfer. No further CM/SW intervention is anticipated at this time. Post Discharge Care Provider Post Discharge Care Plan DC Summary has been faxed to next level of care provider (see Follow Up Providers) Per medical team, patient is medically stable for discharge at this time. manager biostatistics spoke with Kimberly in admissions and patient has been accepted to [facility] Room 205. CMspoke with the patient/family, medical team and RN in regards to discharge planning and all are agreeable to discharge. Post acute care transfer packet completed and will be sent with patient. RN to call report to: . Orders have been faxed to . [facility] a.m. The patient, patient's daughter, and the medical team agreed to the transfer to the facility and the EMS transfer. PCS form completed for ambulance transfer. Patient/family informed patient may require ambulance transport. manager biostatistics informed patient/family that even if the patient's insurance benefit includes ambulance transport, it may not cover the full cost of the transportation. The patient may be responsible for any out of pocket cost including mileage beyond the nearest appropriate facility. Patient/family verbalized understanding. Yun Keenan RN Case Manager For emergency needs from 4:31p.m. - 7:59a.m., please call the western tack assembly line worker [phone]. For weekend/holiday needs from 8:00a.m. - 4:30p.m., please call the Weekend Center Machine Operator . * Keisha Chen OT - 08/12/2022 8:40 AM CDT Occupational Therapy Occupational Therapy Progress Note NOTE: This is a summary note of the cisse components of the treatment session. For full details, review chart for all flowsheets documented on by this occupational therapy clinician on this date. Vitalsigns documented in vital signs flowsheet. Care plan progress documented in Care Plan Activity. For questions, please review the treatment team and contact the occupational therapist currently assigned to this patient. If an occupational therapist is not assigned to this patient, please call [phone]. 08/12/22 0861 General Session Type Treatment OT Received On 08/12/22 Safe Environment Arm band checked;Patient found in supine Subjective Agreeable to Therapy (very motivated to participate, I am leaving today ) Family/Caregiver Present Yes (daughter) Precautions Precautions Fall risk Pain Assessment Pain Assessment No/denies pain Static Sitting Balance Static Sitting-Balance Support Feet unsupported Static Sitting-Sitting Surface Bed Static Sitting-Level of Assistance Close supervision Static Standing Balance Static Standing-Balance Support Unilateral upper extremity supported Static Standing-Level of Assistance Minimum assistance Dynamic Standing Balance Dynamic Standing-Balance Support Right upper extremity supported (whilte attmpting clothing mgmt with non-dom left hand) Dynamic Standing-Level of Assistance Minimum assistance Grooming Grooming: Where assessed Chair Grooming: Level of assistance Moderate Assist Grooming: Assistance with Manipulation of containers (compensates wtih use of non- dom left hand, receptive to encouragement to attempt use of right/affected hand during task) LE Dressing LE Dressing: Where assessed Sitting;Standing LE Dressing: Level of assistance Moderate Assist LE Dressing: Assistance with (minimal assistance with donning garments over toes, then able to to bring over heel/leg following education and demo on cross over method for safe reach to feet. Initiated one handed training to open sock and bring over toes with left hand, min assist) Bed Mobility 1 Bed Mobility From 1 Supine Bed Mobility Type 1 To Bed Mobility to 1 Edge of bed Level of Assistance 1 Minimum Assist (to mobilize R LE) Transfers Transfer (gait belt donned.) Transfer 1 Transfer From 1 Sit Transfer Type 1 To and from Transfer to 1 Stand Technique 1 Sit to stand;Stand to sit Transfer Device 1 No device Transfer Level of Assistance 1 Minimum Assist Trials/Comments 1 (assist for balance, safety, R LE placement) Transfers 2 Transfer From 2 Bed Transfer Type 2 To Transfer to 2 Chair with arms Technique 2 Stand and step Transfer Device 2 Hand held assist Transfer Level of Assistance 2 Moderate Assist (when encouraged to weright shift and take steps with R foot (able to stand pivot with min assist)) Cognition Overall Cognitive Status (Compensates well for expressive language deficits, slowing and repeating as needed.) Orientation Oriented X4 (person, place, time, situation) Following Commands Follows all commands and directions without difficulty Compliance/Behavior Easy to engage (very motivated to participate) Other Comments Comments R UE HEP and positioning, completed elbow flex/ext with focus on eccentric strengthening/slow lowering to extension (receptive and able following demo and tactile cues). Daily Activity - 6 Clicks Putting on and taking off regular lower body clothing 2 Bathing 2 Toileting 2 Putting on and taking off upper body clothing 2 Personal Grooming 3 Eating Meals 3 Total Score (range 6-24) 14 Score Interpretation 33.39 Safe Environment End of Therapy Session Safe Environment End of Therapy Session Patient left in chair;RN notified;Chair alarm in place and activated;Call light within reach Assessment Problem List Decreased upper extremity strength;Decreased endurance;Decreased balance;Decreased functional mobility;Decreased fine motor control;Decreased ADL independence;Decreased IADL independence;Decreased UE function Barriers to Discharge Current Mobility Status (not at PLOF) Barrier Comments (fall risk) Recommendation/Plan OT Recommendation Inpatient Rehab Facility Patient at high risk for Falls;Readmission;Injury due to reduced functional status;Injury at home as patient has not returned to prior level of function Recommend Inpatient Rehab/Acute Rehab due to Ability to actively participate in intensive therapy 3hours/day, 5 days/week or 900 minutes per week;Highly motivated to participate in therapy;Requires greater than 25% physical assistance with most ADL tasks;Requires skilled therapy interventions to address neurological deficits;Likely to return to the community at discharge with support system in place OT Frequency during current admission 3-5x/wk Treatment/Interventions during current admission ADL/IADL retraining;Balance Training;Functional activity;Functional transfer training;Neuromuscular re- education;Positioning;Parent/caregiver trainingand education;Strengthening;Therapeutic activity;Therapeutic exercise;Transfer training;Upper extremity motor function/functional skills Progress during current admission Progressing toward goals OT - Next Appointment 08/14/22 Multi-Disciplinary Problems (from Occupational Therapy) Active Problems Problem: Dressings Lower Extremities Start Date: 08/05/22 Goal Start Date Expected End Date End Date STG - Patient to complete lower body dressing with supervision. 08/05/22 08/12/22 -- Problem: Grooming Start Date: 08/05/22 Goal Start Date Expected End Date End Date STG - Patient will complete grooming tasks with supervision. 08/05/22 08/12/22 -- Problem: Transfers Start Date: 08/05/22 Goal Start Date Expected End Date End Date STG - Patient will perform toilet transfer with supervision. 08/05/22 08/12/22 -- Problem: OT Misc Start Date: 08/05/22 Goal Start Date Expected End Date End Date OT LTG - Patient will perform ADLs independently. 08/05/22 09/05/22 -- Reviewed By Kamlesh Lopes RN 08/11/22 0748 Kamlesh Lopes RN 08/11/22 0748 Kamlesh Lopes, BRAYAN 08/11/22 0747 Kamlesh Lopes RN 08/11/22 0747 Kamlesh Lopes, BRAYAN 08/11/22 0745 Kamlesh Lopes RN 08/11/22 0745 * Chet Perez MD PhD - 08/12/2022 7:14 AM CDT Stroke Daily Progress Note Patient Name: Abena Giron Date of / Age: 1 1940 / 82 y.o. Gender: female Date of Service: 08/12/2022 [facility] PCP: Jaleel Mcgovern MD Neurologist SUBJECTIVE CHIEF COMPLAINT: right sided hemiparesis, right facial weakness, global aphasia BRIEF HPI: Abena Giron is a 82 y.o. woman with a past medical history of CAD, AR, SSS s/p Biotronik pacemaker, Atrial fibrillation (previously on Eliquis but not currently, s/p AV node ablation 2018), HLD, HTN, CHF who initially presented with acute right sided hemiparesis, right facial weakness, and became mute. She was found to have an acute L MCA occlusion s/p TNK and MT with TICI 2B, 1 pass aspiration. And was transferred to NNICU after. She arrived to the NNCIU intubated and was able to be extubated the following morning 08/04. ICU course significant for ventilator-associated agitation s/p precedex 08/03-08/04. She only remained intubated to facilitate lying flat following manual compression closure of femoral access sites. She was started on atorvastatin and aspirin 325 mg with plan to continue until transition to oral anticoagulation. She was stable for transfer to the floor. Her SMART consult was completed while in the NNICU and she has been recommended for IPR by PT and OT. She underwent a modified barium study and passed for dysphagia 1 diet. Interval Events: - NAEON Plan today: - Advancing diet as tolerated - Pending placement. This patient is medically ready for discharge. HISTORY Past Medical History: Past Medical History: Diagnosis Date Adiposity obesity [...] infarction (CMS/HCC) (HCC) 2015 Sleep apnea Vertigo Surgical History: Past Surgical History: Procedure Laterality Date ABDOMINAL SURGERY CARDIAC PACEMAKER PLACEMENT CATARACT EXTRACTION W/ INTRAOCULAR LENS IMPLANT Bilateral CHOLECYSTECTOMY 1981 Cholecystectomy EYE SURGERY OTHER SURGICAL HISTORY Right 1980 partial oopherectomy OTHER SURGICAL HISTORY heart cath with stent 2014 [place]/[facility] OTHER SURGICAL HISTORY 2016 a.fib: loop recorder implanted OTHER SURGICAL HISTORY 2016 Atrial Fibrillation: Cardiovascular Intervention (ablation) SKIN BIOPSY Family History: family history includes Breast cancer in her child; COPD in her father; Cancer in her brother; Dementia in her father and mother; Depression in her brother, father, and mother; Hypertension in her brother; Other in her mother and sister; Other (age of onset: 75) in her sister. Social History: reports that she quit smoking about 48 years ago. Her smoking use included cigarettes. She has never used smokeless tobacco. She reports that she does not use drugs. No alcohol history on file. Social History Social History Narrative Agrees to blood/blood products: Y Agrees to blood/blood products: Y Allergies: Allergies Allergen Reactions Phenobarbital Hallucinations Codeine Rash, [...] (See comments) severe heart pain Diltiazem Itching MEDICATIONS Home Medications: Current Facility-Administered Medications: acetaminophen (TYLENOL) 32 mg/mL oral liquid 650 mg, 650 mg, feeding tube, Q4H PRN, Alice Yoo NP,650 mg at 08/07/22 0628 apixaban (ELIQUIS) tablet 5 mg, 5 mg, oral, Q12H NAVEED, Mannie Valencia MD, 5 mg at 08/11/222050 aspirin chewable tablet 81 mg, 81 mg, oral, Daily, Mannie Valencia MD, 81 mg at 08/11/22 0839 Carrier Fluids for Secondary Infusion - 0.9% Sodium Chloride, 30 mL, intravenous, PRN, Alice Yoo NP, 30 mL at 08/03/222350 furosemide (LASIX) tablet 40 mg, 40 mg, feeding tube, Daily, Capri Curran MD, 40 mg at 08/11/22 0841 losartan (COZAAR) tablet 12.5 mg, 12.5 mg, feeding tube, Daily, Capri Curran MD, 12.5 mg at08/11/22 0840 metoprolol XL (TOPROL-XL) extended release tablet 12.5 mg, 12.5 mg, oral, Daily, Mannie Valencia MD, 12.5 mg at 08/11/22839 phenoL (CHLORASEPTIC) 1.4 % oral spray 1 spray, 1 spray, mouth/throat, Q4H PRN, Evelyn Hawkins MD prochlorperazine (COMPAZINE) tablet 5 mg, 5 mg, oral, TID PRN, Capri Curran MD ramelteon (ROZEREM) tablet 8 mg, 8 mg, feeding tube, Nightly, Capri Curran MD, 8 mg at 08/11/222050 rosuvastatin (CRESTOR) tablet 10 mg, 10 mg, feeding tube, Nightly, Capri Curran MD, 10 mg at 08/11/222049 simethicone (MYLICON) 66.7 mg/mL oral drops 40 mg, 40 mg, feeding tube, TID PRN, Capri Curran MD, 40 mg at 08/11/22 1347 spironolactone (ALDACTONE) split tablet 12.5 mg, 12.5 mg, oral, Daily, Capri Curran MD, 12.5 mg at 08/11/22 0839 Scheduled Medications: apixaban, 5 mg, oral, Q12H NAVEED aspirin, 81 mg, oral, Daily furosemide, 40 mg, feeding tube, Daily losartan, 12.5 mg, feeding tube, Daily metoprolol XL, 12.5 mg, oral, Daily ramelteon, 8 mg, feeding tube, Nightly rosuvastatin, 10 mg, feeding tube, Nightly spironolactone, 12.5 mg, oral, Daily Continuous Medications: PRN Medications: acetaminophen sodium chloride 0.9% phenoL prochlorperazine simethicone Objective Vitals: Arrival Vitals Temp 08/03/22 1551 36.3 ??C (97.4 ??F) Pulse 08/03/22 1549 82 Resp 08/03/22 1549 22 BP 08/03/22 1549 98/68 SpO2 08/03/22 1551 94 % Temp src 08/03/22 1551 Axillary Heart Rate Source 08/03/22 191 Monitor Patient Position 08/04/22 1000 HOB 30 degrees BP Location 08/04/22 0100 Right arm FiO2 (%) 08/03/22 1915 30 % Most Recent : Vitals: 08/12/22 0426 BP: Pulse: Resp: Temp: SpO2: 96% I/O: Intake/Output Summary (Last 24 hours) at 08/12/2022 0715 Last data filed at 08/12/2022 0425 Gross per 24 hour Intake 100 ml Output 700 ml Net -600 ml Physical exam: General: No acute distress. HEENT: Sclera anicteric. Mucous membranes moist. Normal oropharynx. NGT in place. Cardiac: Regular rate and rhythm Pulmonary: Breathing comfortably on room air. Abdomen: Soft, nontender, nondistended. Extremities: No pedal edema. Warm and well-perfused. No cyanosis or clubbing. Skin: No visible rashes or lesions. Psychiatric: Full, appropriate, mood-congruent affect. Neurologic: Mental status: Alert. Oriented to person, place, time, and situation by choice Language: Speaks in appropriate one word phrases. Follows one step central and peripheral commands,unable to repeat, naming intact to high frequency objects but struggles with low frequency objects. Cranial nerves: PERRL, EOMI without gaze preference, visual krause full to finger wiggling, sensation intact to light touch in V1-V3 distributions, right facial droop, hearing intact to conversation,palate elevates symmetrically, mild dysarthria. Motor: R UE 4/5 LUE 5/5 throughout. R LE antigravity, LLE 5/5 throughout. Sensory: reports decreased sensation to light touch on right without extinction Coordination: [id number] on left ataxia. Reflexes: deferred Gait: deferred Lab/Radiology/Diagnostic Review: Recent Labs Lab Units 08/11/22 2154 WBC K/cumm 8.2 HEMOGLOBIN g/dL 11.5* HEMATOCRIT % 34.5* PLATELETS K/cumm 289 Recent Labs Lab Units 08/11/22 2154 SODIUM mmol/L 141 POTASSIUM PLASMA mmol/L 3.9 CHLORIDE mmol/L 100 CO2 mmol/L 31 ANIONGAP mmol/L 10 GLUCOSE mg/dL 90 BUN SERUM mg/dL 29* CREATININE mg/dL 0.75 CALCIUM mg/dL 9.3 Recent Labs Lab Units 08/11/22 2154 MAGNESIUM mg/dL 2.2 Neuro Imaging XR Abdomen Ap 1 Vw Result Date: [...] unchanged. Electronically signed by: Cy Hawley M.D. IR Percutaneous Arterial Thrombectomy, Intracranial Final Result 1. Left middle cerebral artery occlusion, TICI 0 2. Successful mechanical thrombectomy with TICI 2B reperfusion of the left middle cerebral artery Electronically signed by: Kamlesh Steele M.D. Other Relevant Diagnostics: TTE w/Doppler Hospital #: [id number] Date of : 1940 (F) Grain Trader: Luna Canchola [facility] [[email or web address]] Referring Physician: ANAMIKA NAZARIO MD Contrast Agent: 0.8 ml Optison Administered, (2.2 ml wasted). Contrast Administered by: FUR DRESSER Supervised/Interpreted by: Jaleel Banegas MD Diagnosis: Acute stroke Location: [facility] Reason for test: acute stroke, r/o lv thrombus, h/o hf MV Structure: Normal, MV Motion: Normal, Mitral Annulus: Normal AV Structure: tricuspid and is Normal, AV Motion: Normal Aotic root: Normal, TM: Normal, PV: Normal Valvular Vegetations: none seen, Mass/Thrombi: none seen RA: Normal Measurements: M-Mode Normal Aotic Root: <3.8 LA: <3.8 RV: <2.8 LV(ED): <5.7 LV(ES): Variable 2D Linear Normal Aotic Root: 2.8 cm <3.6 Ao Indexed: 1.6 cm/M2 <2.0 LA: <3.8 RV: 2.7 cm <4.2 LV(ED): 4.6 cm <5.3 LV(ES): 4.2 cm <3.5 2D Vol. Normal Indexed Indexed Normal RA: 41.0 ml 24.0 ml/M2 9-33 LA: 51.0 ml 29.8 ml/M2 16-34 RV: <11.6 LV(ED): 120.0 ml 46-106 70.2 ml/M2 <62 LV(ES): 99.0 ml 14-42 57.9 ml/M2 <25 3D Vol. Indexed Normal LV(ED): <62 LV(ES): <24 LV EF: 20 % (Mod. Parker's) (Normal: >=54%) LV Septum: 1.1 cm (Normal: <0.9 cm) Wall Motion Scoring (1=Normal 2=Hypo 3=Akinetic 4=Dyskin./Aneurysm 0=Not visualized) Parasternal Long [place]:MAS=2 BAS=2 MIL=2 SHAYAN=2 Parasternal Short [place]:MAS=2 MIS=2 AR=2 MIL=2 MAL=2 MA=2 Apical 4 Chambers:=2 MIS=2 BIS=2 BAL=2 MAL=2 AL=2 AC=2 Apical 2 Chambers:AI=2 AR=2 BI=2 BA=2 MA=2 AA=2 AC=2 LV Global Longitudinal Strain: RV Global Longitudinal Strain: LV Function: Severe Global reduction in LV Ejection Fraction (EF<30%); EF via modified Parker's. (NOTE: If patient has irreversible LV Cardiac Dysfunction with EF<30%, they are at risk for Sudden Cardiac .) RV Function: mild global hypokinesis Septal Motion: Normal Pericardial Effusion: none seen Atrial Septum: Normal DOPPLER/COLOR FLOW DOPPLER RESULTS: Diastolic Function: indeterminate Tricuspid Valve: mild TV regurgitation Pulmonic Valve: normal PV AV Regurgitation: No AR seen AV Stenosis: no AV Area: cm2 AV Pressure Gradient (mmHg): Mean: 0, Peak:0 MV Regurgitation: Mild MR MV Stenosis: no MS MV Area: cm2 MV Pressure Gradient (mmHg): Mean: 0 MV ERO: cm Regurg. Vol.: ml/beat Regurg. Frac.: % PA Pressure: 45 mmHg DOPPLER/COLOR FOLOW DOPPLER COMMENTS: No AR seen, Mild MR, no , no MS, mild TV regurgitation, normal PV. Diastolic function: indeterminate CONTRAST: 0.8 ml Optison Administered, (2.2 ml wasted). SUMMARY: Frequent PVCs. Normal LV volume, mass. Severe global LV systolic dysfunction (LVEF 20%). Dyssynchronous LV contraction c/w RV pacing. Indeterminate diastolic function. Normal AV. Mild MR. Normal LA size. Normal RV size with mild hypokinesis. Mild TR. PASP 45 mmHg. Dilated IVC c/w elevated RAP. Wire in RA/RV. Abdominal aortic atherosclerosis. No definite LV thrombus. No images for comparison. Confirmed on 08/05/2022 - 11:34:56 by Jaleel Banegas MD I have reviewed the above imaging/diagnostic results and discussed with my attending. Assessment and Plan Ms. Giron is a 82 y.o. right handed woman with past medical history of CAD, AR, SSS s/p Biotronikpacemaker, Atrial fibrillation (previously on Eliquis but not currently, s/p AV node ablation 2018), HLD, HTN, CHF who initially presented with acute right sided hemiparesis, right facial weakness, and became mute. She was found to have an acute L MCA occlusion s/p TNK and MT with TICI 2B, 1 pass aspiration. Impression/Etiology: Ms. Giron presents with right hemiparasis and global aphasia that localizes to the Left MCA territory. Etiologies highest on the differential for consideration per TOAST criteria is cardioembolism.Cardioembolism is most likely as she has a pacemaker in her right ventricle causing dyssynchornous squeeze of her left ventricle which could lead to clot formation, though no definitive thrombi were seen on TTE. Would note CTA findings significant for 80% stenosis of her left ICA, however based on 4v angiogram performed for MT LICA stenosis was estimated to be 50%. The patient will benefit from amelioration of stroke risk factors and optimization of stroke secondary prevention. The patient will be started on Aspirin 325mg Daily and The patient will also benefitfrom a high-intensity statin.. # acute left MCA stroke s/p TNK and mechanical thrombectomy TICI 2B Etiology: proximal embolism, namely suspect cardioembolism Risk Factors: Age > 55, hypertension, dyslipidemia, atrial fibrillation, and carotid artery stenosis Work up: - LDL 68, a1C 6.0 - EKG V paced 68 - HCT hyperdense L MCA, no hemorrhage - 4 vessel angiography with left ICA stenosis 50% - TTE EF 20%, dyssynchronous LV contraction 2/2 RV pacing, no definite thrombus - Loop on discharge: No Secondary Prevention: - Initially ASA 325mg daily, she was transitioned to AC (Eliquis) on 08/10 after she passed her swallow test and there was no longer a need to consider procedure for PEG placement - Atorvastatin 40mg Daily Blood Pressure: - Stroke BP Goal: Normotension <140/90 Risk Factor/Etiology Work-up: - Monitor on telemetry Consults: SMART (Flue Lining Dipper, PT/OT, WOOD FINISHER APPRENTICE, Spiritual Care) #Hyperlipidemia LDL on admission was 68. Goal LDL for secondary stroke prevention is <70. She has previously refused anti-lipid medication reporting feeling unwell on medicaiton and with muscle pain without weakness. # CAD s/p AR with stent placement (2013) # HFrEF (LVEF 20%, was LVEF 40% in 2019) She follows with Dr. Hernandez [facility] Cardiology - last seen 07/18/22 in office. Home regimen: Furosemide 20mg daily, Spironolactone 25mg daily, Entresto 24-26 mg BID ((not being filled). Her last TTE documented 12/2019: mild global LV hypokinesis with EF 40% which is further reduced this admission. She will likely benefit from initiation and optimization of GDMT but will need to be weight against patient preference and family wishes. -- 08/06 TTE Frequent PVCs. Normal LV volume, mass. Severe global LV systolic dysfunction (LVEF 20%). Dyssynchronous LV contraction c/w RV pacing. Indeterminate diastolic function. Normal AV. Mild MR. Normal LA size. Normal RV size with mild hypokinesis. Mild TR. PASP 45 mmHg. Dilated IVC c/w elevated RAP.. No definite LV thrombus. - Consulted Cardiology: cont metop 6.25 BID, losartan 25 daily, Lasix 40 daily, start spironolactone 12.5 daily. Start Farxiga 10 daily on discharge - Continue Aspirin 81mg daily # Chronic atrial Fibrillation s/p AV node ablation (01/06/2019) # SSS s/p pacemaker - Has Biotronik pacemaker placed 07/2018 mode DDD with rate set at 70 BPM - Last interrogated 07/02/2022: 60% battery life remaining, demonstrated ???100% Afib burden?? - Rate controlled without medications and V-paced - Per prior family reports, was prescribed Eliquis 5 mg BID and taking intermittently, however her pharmacy ([facility]) indicates she does not fill this medication and her daughter indicates she does not fill at other pharmacies. - Start Eliquis in the next several days - will obtain HCT today - Telemetry - K > 4, Mg > 2 # Several bilateral femoral artery stenosis, incidental finding # Left subclavian occlusion, incidental finding - Subclavian finding noted on CTA - Femoral stenosis seen in diagnostic angiogram - can follow up outpatient with PCP or vascular - patient on antithrombotic therapy (Eliquis + Aspirin) and statin as indicated for 2' stroke prevention # Anemia, stable - H/H on admission 13/40.3 (08/03) with subsequent drop to 9.6 appearing spurious and suspect drawn from IV (as BMP at that time with hyperNa and hypoK that resolved upon recheck) with repeat 11.5 - Hgb stable now ~11 - Monitor Hgb in CBC daily - Maintain Hgb > 7 g/dL # Hx of Anxiety - In past had Rx for alprazolam and reportedly took it rarely, this is not an active medication andnot filled at pharmacy - Monitor clinically, avoid adding new medications that could confound neurologic exam # Post-stroke dysphagia Passed for dysphagia 1 diet after an MBS was performed on 08/08. Continue to advance diet # Troponemia (resolved) - Trop I hs peaked at 230 (105-->140-->230-->225) - no further trend - Likely secondary to demand ischemia in context of acute stroke, intubation however does have CAD with history of stent - Follow-up TTE to evaluate for wall motion abnormalities - Monitor on telemetry - likely 2/2 demand ischemia #Hypotension (resolved) Blood pressure in the field was 68/31, 90/45 at [place]. Initially responded to fluid boluses. Noted to have chronic left subclavian occlusion on CT CAP 08/03 and severe femoral stenosis on angiogram. Wide pulse pressure noted on her A line while in NNICU suggests arteriosclerosis. This patient is medically ready for discharge. Disposition: Inpatient Rehab Code Status: LIMITED - No CPR Diet: Dysphagia 1, regular liquid DVT Prophylaxis: Lovenox Lines/Tubes: Peripheral IV 08/03/22 18 G Anterior;Right Hand (Active) Number of days: 2 Peripheral IV 08/03/22 18 G Left Hand (Active) Number of days: 2 Urethral Catheter Non-latex;Temperature probe (Active) Number of days: 2 NG/OG Tube Nasogastric 12 Fr Right nostril (Active) Number of days: 1 Chet Gunter MD PhD Neurology Resident Physician, PGY-2 [facility] Stroke Neurology [phone] Cosigned by Foreign Melendez MD PhD at 08/13/2022 6:55 PM CDT Associated attestation - Foreign Melendez MD PhD - 08/13/2022 6:55 PM CDT I have seen and examined the patient on 08/12/2022. I agree with the findings and plan of care as documented in the resident's/fellow's note.. * Yovana Acuna, [employer] PROMOTER - 08/11/2022 8:38 AM CDT Physical Therapy Progress Note NOTE: This is a summary note of the cisse components of the treatment session. For full details, review chart for all flowsheets documented on by this physical therapy clinician on this date. Vital signs documented in vital signs flowsheet. Care plan progress documented in Care Plan Activity. For questions, please review the treatment team and contact the PT or [employer]OMOTER currently assigned to this patient. If a physical therapy clinician is not assigned to this patient, please call [phone]. 08/11/22 3560 PT Last Visit Session Type Treatment PT Received On 08/11/22 Safe Environment Arm band checked;Patient found in supine;Gait belt utilized for all out of bed mobility Subjective Agreeable to Therapy Family/Caregiver Present Yes (daughter) Precautions Precautions Fall risk Pain Assessment Pain Assessment 0-10 Pain Score 5 - Moderate pain Pain Location Back (Lumbar) Pain Interventions Repositioned;RN Notified Cognition Orientation Oriented X4 (person, place, time, situation) Following Commands Follows all commands and directions without difficulty Static Sitting Balance Static Sitting-Balance Support Feet supported Static Sitting-Sitting Surface Bed Static Sitting-Level of Assistance Close supervision Static Sitting-Comment/# of Minutes supervision for safety Static Standing Balance Static Standing-Balance Support Bilateral upper extremity supported Static Standing-Standing Surface Floor Static Standing-Level of Assistance Minimum assistance Static Standing-Comment/# of Minutes with wheeled walker and assist for balance Bed Mobility 1 Bed Mobility From 1 Supine Bed Mobility Type 1 To Bed Mobility to 1 Edge of bed Level of Assistance 1 Standby Assist Bed Mobility Comments 1 supervision for safety Transfer 1 Transfer From 1 Sit Transfer Type 1 To and from Transfer to 1 Stand Technique 1 Sit to stand;Stand to sit Transfer Device 1 Wheeled walker Transfer Level of Assistance 1 Minimum Assist Trials/Comments 1 assist for force production and balance Ambulation 1 Distance (ft) 1 60 Surface 1 Level tile Device 1 Wheeled walker Assistance 1 Minimum Assist Gait: Requires assist with 1 Maintaining balance Gait: Requires verbal cues to 1 Improve upright posture;Increase step length;Increase base of support Gait Deviations 1 Base of support - decreased;Kimberly - decreased;Step length - decreased Basic Mobility - 6 Click How much difficulty does the patient have: Turning over in bed 3 How much difficulty does the patient currently have: Sitting down and standing up from a chair witharms? 3 How much difficulty does the patient have: Moving from lying on back to sitting on the side of the bed? 3 How much difficulty does the patient have: Moving to and from a bed to a chair including wheelchair? 3 How much help does the patient currently need: Walk in hospital room? 3 How much help from another person does the patient currently need: Climbing 3-5 steps with a railing? 2 Total 6 Click Score (range 6-24) 17 Score Interpretation 39.67 Safe Environment End of Therapy Session Safe Environment End of Therapy Session Patient left in recliner;Chair alarm in place and activated;Call light within reach;Overbed table within reach Plan Plan Continue with current plan Recommendation/Plan PT Recommendation/Plan Inpatient Rehab Facility (per PT) Patient at high risk for Falls;Readmission;Injury due to reduced functional status;Injury due to impaired cognition;Injury due to balance deficits;Injury at home as patient has not returned to prior level of function;Developing impaired skin integrity (per PT) Recommend Inpatient Rehab/Acute Rehab due to Ability to actively participate in intensive therapy 3hours/day, 5 days/week or 900 minutes per week;Highly motivated to participate in therapy;Likely toreturn to the community at discharge with support system in place;Requires greater than 25% physical assistance with most mobility tasks;Requires multiple therapy disciplines to address functional deficits;Patient and caregiver require specialized skilled training due to new level of function/diagnosis;Requires skilled therapy interventions to address neurological deficits (per PT) PT Frequency during current admission 3-5x/wk (per PT) Progress during current admission Progressing toward goals PT - Next Appointment 08/13/22 Multi-Disciplinary Problems (from Physical Therapy) Active Problems Problem: Mobility Start Date: 08/05/22 Goal Start Date Expected End Date End Date LTG - Patient will demonstrate functional mobility with the following level of assist: mod I 08/05/22 09/16/22 -- Goal Start Date Expected End Date End Date STG - Patient will ambulate 50 feet with LRD, min assist 08/05/22 08/19/22 -- Problem: Transfers Start Date: 08/05/22 Goal Start Date Expected End Date End Date STG - Transfer from bed to chair with supervision 08/05/22 08/19/22 -- Goal Start Date Expected End Date End Date STG - Patient to transfer to and from sit to supine with supervision 08/05/22 08/19/22 -- Goal Start Date Expected End Date End Date STG - Patient will transfer sit to and from stand with supervision 08/05/22 08/19/22 -- * Capri Curran MD - 08/11/2022 7:12 AM CDT Stroke Daily Progress Note Patient Name: Abena Giron Date of / Age: 1 1940 / 82 y.o. Gender: female Date of Service: 08/11/2022 [facility] PCP: Jaleel Mcgovern MD Neurologist SUBJECTIVE CHIEF COMPLAINT: right sided hemiparesis, right facial weakness, global aphasia BRIEF HPI: Abena Giron is a 82 y.o. woman with a past medical history of CAD, AR, SSS s/p Biotronik pacemaker, Atrial fibrillation (previously on Eliquis but not currently, s/p AV node ablation 2018), HLD, HTN, CHF who initially presented with acute right sided hemiparesis, right facial weakness, and became mute. She was found to have an acute L MCA occlusion s/p TNK and MT with TICI 2B, 1 pass aspiration. And was transferred to NNICU after. She arrived to the NNCIU intubated and was able to be extubated the following morning 08/04. ICU course significant for ventilator-associated agitation s/p precedex 08/03-08/04. She only remained intubated to facilitate lying flat following manual compression closure of femoral access sites. She was started on atorvastatin and aspirin 325 mg with plan to continue until transition to oral anticoagulation. She was stable for transfer to the floor. Her SMART consult was completed while in the NNICU and she has been recommended for IPR by PT and OT. She underwent a modified barium study and passed for dysphagia 1 diet. Interval Events: - NAEO. - COVID test is negative this morning Plan today: - Advancing diet as tolerated - PT/OT - Likely discharge to IPR tomorrow HISTORY Past Medical History: Past Medical History: Diagnosis Date Adiposity obesity [...] infarction (CMS/HCC) (HCC) 2015 Sleep apnea Vertigo Surgical History: Past Surgical History: Procedure Laterality Date ABDOMINAL SURGERY CARDIAC PACEMAKER PLACEMENT CATARACT EXTRACTION W/ INTRAOCULAR LENS IMPLANT Bilateral CHOLECYSTECTOMY 1981 Cholecystectomy EYE SURGERY OTHER SURGICAL HISTORY Right 1980 partial oopherectomy OTHER SURGICAL HISTORY heart cath with stent 2013 [place]/[facility] OTHER SURGICAL HISTORY 2016 a.fib: loop recorder implanted OTHER SURGICAL HISTORY 2016 Atrial Fibrillation: Cardiovascular Intervention (ablation) SKIN BIOPSY Family History: family history includes Breast cancer in her child; COPD in her father; Cancer in her brother; Dementia in her father and mother; Depression in her brother, father, and mother; Hypertension in her brother; Other in her mother and sister; Other (age of onset: 75) in her sister. Social History: reports that she quit smoking about 48 years ago. Her smoking use included cigarettes. She has never used smokeless tobacco. She reports that she does not use drugs. No alcohol history on file. Social History Social History Narrative Agrees to blood/blood products: Y Agrees to blood/blood products: Y Allergies: Allergies Allergen Reactions Phenobarbital Hallucinations Codeine Rash, [...] (See comments) severe heart pain Diltiazem Itching MEDICATIONS Home Medications: Current Facility-Administered Medications: acetaminophen (TYLENOL) 32 mg/mL oral liquid 650 mg, 650 mg, feeding tube, Q4H PRN, Alice Yoo NP,650 mg at 08/07/22 0628 apixaban (ELIQUIS) tablet 5 mg, 5 mg, oral, Q12H NAVEED, Mannie Valencia MD, 5 mg at 08/10/22 205 aspirin chewable tablet 81 mg, 81 mg, oral, Daily, Mannie Valencia MD, 81 mg at 08/10/22 0838 Carrier Fluids for Secondary Infusion - 0.9% Sodium Chloride, 30 mL, intravenous, PRN, Alice Yoo NP, 30 mL at 08/03/22 2351 furosemide (LASIX) tablet 40 mg, 40 mg, feeding tube, Daily, Capri Curran MD, 40 mg at 08/10/22 0840 losartan (COZAAR) tablet 12.5 mg, 12.5 mg, feeding tube, Daily, Capri Curran MD, 12.5 mg at08/10/22 0838 metoprolol XL (TOPROL-XL) extended release tablet 12.5 mg, 12.5 mg, oral, Daily, Mannie Valencia MD, 12.5 mg at 08/10/22 0838 ondansetron (ZOFRAN) injection 4 mg, 4 mg, intravenous, Q6H PRN, Alice Yoo NP, 4 mg at 08/10/221900 phenoL (CHLORASEPTIC) 1.4 % oral spray 1 spray, 1 spray, mouth/throat, Q4H PRN, Evelyn Hawkins MD ramelteon (ROZEREM) tablet 8 mg, 8 mg, feeding tube, Nightly, Capri Curran MD, 8 mg at 08/10/222051 rosuvastatin (CRESTOR) tablet 10 mg, 10 mg, feeding tube, Nightly, Capri Curran MD, 10 mg at 08/10/222051 simethicone (MYLICON) 66.7 mg/mL oral drops 40 mg, 40 mg, feeding tube, TID PRN, Capri Curran MD, 40 mg at 08/10/221905 spironolactone (ALDACTONE) split tablet 12.5 mg, 12.5 mg, oral, Daily, Capri Curran MD, 12.5 mg at 08/10/22 0839 Scheduled Medications: apixaban, 5 mg, oral, Q12H NAVEED aspirin, 81 mg, oral, Daily furosemide, 40 mg, feeding tube, Daily losartan, 12.5 mg, feeding tube, Daily metoprolol XL, 12.5 mg, oral, Daily ramelteon, 8 mg, feeding tube, Nightly rosuvastatin, 10 mg, feeding tube, Nightly spironolactone, 12.5 mg, oral, Daily Continuous Medications: PRN Medications: acetaminophen sodium chloride 0.9% ondansetron phenoL simethicone Objective Vitals: Arrival Vitals Temp 08/03/22 1551 36.3 ??C (97.4 ??F) Pulse 08/03/22 1549 82 Resp 08/03/22 1549 22 BP 08/03/22 1549 98/68 SpO2 08/03/22 1551 94 % Temp src 08/03/22 1551 Axillary Heart Rate Source 08/03/22 1915 Monitor Patient Position 08/04/22 1000 HOB 30 degrees BP Location 08/04/22 0100 Right arm FiO2 (%) 08/03/22 1915 30 % Most Recent : Vitals: 08/11/22 0535 BP: 114/62 Pulse: Resp: 19 Temp: 36.4 ??C (97.5 ??F) SpO2: 97% I/O: Intake/Output Summary (Last 24 hours) at 08/11/2022 0712 Last data filed at 08/10/2022 1943 Gross per 24 hour Intake -- Output 600 ml Net -600 ml Physical exam: General: No acute distress. HEENT: Sclera anicteric. Mucous membranes moist. Normal oropharynx. NGT in place. Cardiac: Regular rate and rhythm Pulmonary: Breathing comfortably on room air. Abdomen: Soft, nontender, nondistended. Extremities: No pedal edema. Warm and well-perfused. No cyanosis or clubbing. Skin: No visible rashes or lesions. Psychiatric: Full, appropriate, mood-congruent affect. Neurologic: Mental status: Alert. Oriented to person, place, time, and situation by choice Language: Speaks in appropriate one word phrases. Follows one step central and peripheral commands,unable to repeat, naming intact to high frequency objects but struggles with low frequency objects. Cranial nerves: PERRL, EOMI without gaze preference, visual krause full to finger wiggling, sensation intact to light touch in V1-V3 distributions, right facial droop, hearing intact to conversation,palate elevates symmetrically, mild dysarthria. Motor: R UE 4/5 LUE 5/5 throughout. R LE antigravity, LLE 5/5 throughout. Sensory: reports decreased sensation to light touch on right without extinction Coordination: [id number] on left ataxia. Reflexes: deferred Gait: deferred Lab/Radiology/Diagnostic Review: Recent Labs Lab Units 08/11/22 0547 WBC K/cumm 7.7 HEMOGLOBIN g/dL 11.6* HEMATOCRIT % 35.0* PLATELETS K/cumm 271 Recent Labs Lab Units 08/11/22 0547 SODIUM mmol/L 140 POTASSIUM PLASMA mmol/L 4.1 CHLORIDE mmol/L 101 CO2 mmol/L 30 ANIONGAP mmol/L 9 GLUCOSE mg/dL 96 BUN SERUM mg/dL 31* CREATININE mg/dL 0.75 CALCIUM mg/dL 8.9 Recent Labs Lab Units 08/11/22 0547 MAGNESIUM mg/dL 2.1 Neuro Imaging XR Abdomen Ap 1 Vw Result Date: [...] unchanged. Electronically signed by: Cy Hawley M.D. IR Percutaneous Arterial Thrombectomy, Intracranial Final Result 1. Left middle cerebral artery occlusion, TICI 0 2. Successful mechanical thrombectomy with TICI 2B reperfusion of the left middle cerebral artery Electronically signed by: Kamlesh Steele M.D. Other Relevant Diagnostics: TTE /Doppler [facility] #: 0 Date of : 1940 (F) Grain Trader: Luna Canchola RDCS Referring Physician: ANAMIKA NAZARIO MD Contrast Agent: 0.8 ml Optison Administered, (2.2 ml wasted). Contrast Administered by: FUR DRESSER Supervised/Interpreted by: Jaleel Banegas MD Diagnosis: Acute stroke Location: [facility] Reason for test: acute stroke, r/o lv thrombus, h/o hf MV Structure: Normal, MV Motion: Normal, Mitral Annulus: Normal AV Structure: tricuspid and is Normal, AV Motion: Normal Aotic root: Normal, TM: Normal, PV: Normal Valvular Vegetations: none seen, Mass/Thrombi: none seen RA: Normal Measurements: M-Mode Normal Aotic Root: <3.8 LA: <3.8 RV: <2.8 LV(ED): <5.7 LV(ES): Variable 2D Linear Normal Aotic Root: 2.8 cm <3.6 Ao Indexed: 1.6 cm/M2 <2.0 LA: <3.8 RV: 2.7 cm <4.2 LV(ED): 4.6 cm <5.3 LV(ES): 4.2 cm <3.5 2D Vol. Normal Indexed Indexed Normal RA: 41.0 ml 24.0 ml/M2 9-33 LA: 51.0 ml 29.8 ml/M2 16-34 RV: <11.6 LV(ED): 120.0 ml 46-106 70.2 ml/M2 <62 LV(ES): 99.0 ml 14-42 57.9 ml/M2 <25 3D Vol. Indexed Normal LV(ED): <62 LV(ES): <24 LV EF: 20 % (Mod. Parker's) (Normal: >=54%) LV Septum: 1.1 cm (Normal: <0.9 cm) Wall Motion Scoring (1=Normal 2=Hypo 3=Akinetic 4=Dyskin./Aneurysm 0=Not visualized) Parasternal Long [place]:MAS=2 BAS=2 MIL=2 SHAYAN=2 Parasternal Short [place]:MAS=2 MIS=2 AR=2 MIL=2 MAL=2 MA=2 Apical 4 Chambers:=2 MIS=2 BIS=2 BAL=2 MAL=2 AL=2 AC=2 Apical 2 Chambers:AI=2 AR=2 BI=2 BA=2 MA=2 AA=2 AC=2 LV Global Longitudinal Strain: RV Global Longitudinal Strain: LV Function: Severe Global reduction in LV Ejection Fraction (EF<30%); EF via modified Parker's. (NOTE: If patient has irreversible LV Cardiac Dysfunction with EF<30%, they are at risk for Sudden Cardiac .) RV Function: mild global hypokinesis Septal Motion: Normal Pericardial Effusion: none seen Atrial Septum: Normal DOPPLER/COLOR FLOW DOPPLER RESULTS: Diastolic Function: indeterminate Tricuspid Valve: mild TV regurgitation Pulmonic Valve: normal PV AV Regurgitation: No AR seen AV Stenosis: no AV Area: cm2 AV Pressure Gradient (mmHg): Mean: 0, Peak:0 MV Regurgitation: Mild MR MV Stenosis: no MS MV Area: cm2 MV Pressure Gradient (mmHg): Mean: 0 MV ERO: cm Regurg. Vol.: ml/beat Regurg. Frac.: % PA Pressure: 45 mmHg DOPPLER/COLOR FOLOW DOPPLER COMMENTS: No AR seen, Mild MR, no , no MS, mild TV regurgitation, normal PV. Diastolic function: indeterminate CONTRAST: 0.8 ml Optison Administered, (2.2 ml wasted). SUMMARY: Frequent PVCs. Normal LV volume, mass. Severe global LV systolic dysfunction (LVEF 20%). Dyssynchronous LV contraction c/w RV pacing. Indeterminate diastolic function. Normal AV. Mild MR. Normal LA size. Normal RV size with mild hypokinesis. Mild TR. PASP 45 mmHg. Dilated IVC c/w elevated RAP. Wire in RA/RV. Abdominal aortic atherosclerosis. No definite LV thrombus. No images for comparison. Confirmed on 08/05/2022 - 11:34:56 by Jaleel Banegas MD I have reviewed the above imaging/diagnostic results and discussed with my attending. Assessment and Plan Ms. Giron is a 82 y.o. right handed woman with past medical history of CAD, AR, SSS s/p Biotronikpacemaker, Atrial fibrillation (previously on Eliquis but not currently, s/p AV node ablation 2019), HLD, HTN, CHF who initially presented with acute right sided hemiparesis, right facial weakness, and became mute. She was found to have an acute L MCA occlusion s/p TNK and MT with TICI 2B, 1 pass aspiration. Impression/Etiology: Ms. Giron presents with right hemiparasis and global aphasia that localizes to the Left MCA territory. Etiologies highest on the differential for consideration per TOAST criteria is cardioembolism.Cardioembolism is most likely as she has a pacemaker in her right ventricle causing dyssynchornous squeeze of her left ventricle which could lead to clot formation, though no definitive thrombi were seen on TTE. Would note CTA findings significant for 80% stenosis of her left ICA, however based on 4v angiogram performed for MT LICA stenosis was estimated to be 50%. The patient will benefit from amelioration of stroke risk factors and optimization of stroke secondary prevention. The patient will be started on Aspirin 325mg Daily and The patient will also benefitfrom a high-intensity statin.. # acute left MCA stroke s/p TNK and mechanical thrombectomy TICI 2B Etiology: proximal embolism, namely suspect cardioembolism Risk Factors: Age > 55, hypertension, dyslipidemia, atrial fibrillation, and carotid artery stenosis Work up: - LDL 68, a1C 6.0 - EKG V paced 68 - HCT hyperdense L MCA, no hemorrhage - 4 vessel angiography with left ICA stenosis 50% - TTE EF 20%, dyssynchronous LV contraction 2/2 RV pacing, no definite thrombus - Loop on discharge: No Secondary Prevention: - Initially ASA 325mg daily, she was transitioned to AC (Eliquis) on 08/10 after she passed her swallow test and there was no longer a need to consider procedure for PEG placement - Atorvastatin 40mg Daily Blood Pressure: - Stroke BP Goal: Normotension <140/90 Risk Factor/Etiology Work-up: - Monitor on telemetry Consults: SMART (Flue Lining Dipper, PT/OT, WOOD FINISHER APPRENTICE, Spiritual Care) #Hyperlipidemia LDL on admission was 68. Goal LDL for secondary stroke prevention is <70. She has previously refused anti-lipid medication reporting feeling unwell on medicaiton and with muscle pain without weakness. # CAD s/p AR with stent placement (2013) # HFrEF (LVEF 20%, was LVEF 40% in 2019) She follows with Dr. Hernandez [facility] Cardiology - last seen 07/18/22 in office. Home regimen: Furosemide 20mg daily, Spironolactone 25mg daily, Entresto 24-26 mg BID ((not being filled). Her last TTE documented 12/2019: mild global LV hypokinesis with EF 40% which is further reduced this admission. She will likely benefit from initiation and optimization of GDMT but will need to be weight against patient preference and family wishes. -- 08/06 TTE Frequent PVCs. Normal LV volume, mass. Severe global LV systolic dysfunction (LVEF 20%). Dyssynchronous LV contraction c/w RV pacing. Indeterminate diastolic function. Normal AV. Mild MR. Normal LA size. Normal RV size with mild hypokinesis. Mild TR. PASP 45 mmHg. Dilated IVC c/w elevated RAP.. No definite LV thrombus. - Consulted Cardiology: cont metop 6.25 BID, losartan 25 daily, Lasix 40 daily, start spironolactone 12.5 daily. Start Farxiga 10 daily on discharge - Continue Aspirin 81mg daily # Chronic atrial Fibrillation s/p AV node ablation (01/06/2019) # SSS s/p pacemaker - Has Biotronik pacemaker placed 07/2018 mode DDD with rate set at 70 BPM - Last interrogated 07/02/2022: 60% battery life remaining, demonstrated ???100% Afib burden?? - Rate controlled without medications and V-paced - Per prior family reports, was prescribed Eliquis 5 mg BID and taking intermittently, however her pharmacy ([facility]) indicates she does not fill this medication and her daughter indicates she does not fill at other pharmacies. - Start Eliquis in the next several days - will obtain HCT today - Telemetry - K > 4, Mg > 2 # Several bilateral femoral artery stenosis, incidental finding # Left subclavian occlusion, incidental finding - Subclavian finding noted on CTA - Femoral stenosis seen in diagnostic angiogram - can follow up outpatient with PCP or vascular - patient on antithrombotic therapy (Eliquis + Aspirin) and statin as indicated for 2' stroke prevention # Anemia, stable - H/H on admission 13/40.3 (08/03) with subsequent drop to 9.6 appearing spurious and suspect drawn from IV (as BMP at that time with hyperNa and hypoK that resolved upon recheck) with repeat 11.5 - Hgb stable now ~11 - Monitor Hgb in CBC daily - Maintain Hgb > 7 g/dL # Hx of Anxiety - In past had Rx for alprazolam and reportedly took it rarely, this is not an active medication andnot filled at pharmacy - Monitor clinically, avoid adding new medications that could confound neurologic exam # Post-stroke dysphagia Passed for dysphagia 1 diet after an MBS was performed on 5/18. Continue to advance diet # Troponemia (resolved) - Trop I hs peaked at 230 (105-->140-->230-->225) - no further trend - Likely secondary to demand ischemia in context of acute stroke, intubation however does have CAD with history of stent - Follow-up TTE to evaluate for wall motion abnormalities - Monitor on telemetry - likely 2/2 demand ischemia #Hypotension (resolved) Blood pressure in the field was 68/31, 90/45 at [place]. Initially responded to fluid boluses. Noted to have chronic left subclavian occlusion on CT CAP 08/03 and severe femoral stenosis on angiogram. Wide pulse pressure noted on her A line while in NNICU suggests arteriosclerosis. Disposition: Inpatient Rehab Code Status: LIMITED - No CPR Diet: Dysphagia 1, regular liquid DVT Prophylaxis: Lovenox Lines/Tubes: Peripheral IV 08/03/22 18 G Anterior;Right Hand (Active) Number of days: 2 Peripheral IV 08/03/22 18 G Left Hand (Active) Number of days: 2 Urethral Catheter Non-latex;Temperature probe (Active) Number of days: 2 NG/OG Tube Nasogastric 12 Fr Right nostril (Active) Number of days: 1 Capri Curran MD Neurology Resident Physician, PGY-3 [facility] Stroke Neurology [phone] Cosigned by Foreign Melendez MD PhD at 08/12/2022 12:38 PM CDT Associated attestation - Foreign Melendez MD PhD - 08/12/2022 12:38 PM CDT I have seen and examined the patient on 08/11/2022. I agree with the findings and plan of care as documented in the resident's/fellow's note.. * Capri Curran MD - 08/10/2022 7:28 AM CDT Stroke Daily Progress Note Patient Name: Abena Giron Date of / Age: 1 1940 / 82 y.o. Gender: female Date of Service: 08/10/2022 [facility] PCP: Jaleel Mcgovern MD Neurologist SUBJECTIVE CHIEF COMPLAINT: right sided hemiparesis, right facial weakness, global aphasia BRIEF HPI: Abena Giron is a 82 y.o. woman with a past medical history of CAD, AR, SSS s/p Biotronik pacemaker, Atrial fibrillation (previously on Eliquis but not currently, s/p AV node ablation 2018), HLD, HTN, CHF who initially presented with acute right sided hemiparesis, right facial weakness, and became mute. She was found to have an acute L MCA occlusion s/p TNK and MT with TICI 2B, 1 pass aspiration. And was transferred to NNICU after. She arrived to the NNCIU intubated and was able to be extubated the following morning 08/04. ICU course significant for ventilator-associated agitation s/p precedex 08/03-08/04. She only remained intubated to facilitate lying flat following manual compression closure of femoral access sites. She was started on atorvastatin and aspirin 325 mg with plan to continue until transition to oral anticoagulation. She was stable for transfer to the floor. Her SMART consult was completed while in the NNICU and she has been recommended for IPR by PT and OT. She underwent a modified barium study and passed for dysphagia 1 diet. Interval Events: - NGT was removed yesterday, patient continue to advance diet Plan today: - Resume Eliquis 5g BID, decrease ASA to 81mg (needs ASA for CAD) - Advancing diet - PT/OT HISTORY Past Medical History: Past Medical History: Diagnosis Date Adiposity obesity [...] infarction (CMS/HCC) (HCC) 2014 Sleep apnea Vertigo Surgical History: Past Surgical History: Procedure Laterality Date ABDOMINAL SURGERY CARDIAC PACEMAKER PLACEMENT CATARACT EXTRACTION W/ INTRAOCULAR LENS IMPLANT Bilateral CHOLECYSTECTOMY 1980 Cholecystectomy EYE SURGERY OTHER SURGICAL HISTORY Right 1980 partial oopherectomy OTHER SURGICAL HISTORY heart cath with stent 2013 [place]/[facility] OTHER SURGICAL HISTORY 2016 a.fib: loop recorder implanted OTHER SURGICAL HISTORY 2016 Atrial Fibrillation: Cardiovascular Intervention (ablation) SKIN BIOPSY Family History: family history includes Breast cancer in her child; COPD in her father; Cancer in her brother; Dementia in her father and mother; Depression in her brother, father, and mother; Hypertension in her brother; Other in her mother and sister; Other (age of onset: 75) in her sister. Social History: reports that she quit smoking about 48 years ago. Her smoking use included cigarettes. She has never used smokeless tobacco. She reports that she does not use drugs. No alcohol history on file. Social History Social History Narrative Agrees to blood/blood products: Y Agrees to blood/blood products: Y Allergies: Allergies Allergen Reactions Phenobarbital Hallucinations Codeine Rash, [...] (See comments) severe heart pain Diltiazem Itching MEDICATIONS Home Medications: Current Facility-Administered Medications: acetaminophen (TYLENOL) 32 mg/mL oral liquid 650 mg, 650 mg, feeding tube, Q4H PRN, Alice Yoo NP,650 mg at 08/07/22 0628 apixaban (ELIQUIS) tablet 5 mg, 5 mg, oral, Q12H [facility], Mannie Valencia MD aspirin chewable tablet 81 mg, 81 mg, oral, Daily, Mannie Valencia MD Carrier Fluids for Secondary Infusion - 0.9% Sodium Chloride, 30 mL, intravenous, PRN, Alice Yoo NP, 30 mL at 08/03/22 7961 furosemide (LASIX) tablet 40 mg, 40 mg, feeding tube, Daily, Capri Curran MD, 40 mg at 08/09/22 0851 losartan (COZAAR) tablet 12.5 mg, 12.5 mg, feeding tube, Daily, Capri Curran MD, 12.5 mg at08/09/22 0850 metoprolol XL (TOPROL-XL) extended release tablet 12.5 mg, 12.5 mg, oral, Daily, Mannie Valencia MD ondansetron (ZOFRAN) injection 4 mg, 4 mg, intravenous, Q6H PRN, Alice Yoo NP, 4 mg at 08/09/22 0941 phenoL (CHLORASEPTIC) 1.4 % oral spray 1 spray, 1 spray, mouth/throat, Q4H PRN, Evelyn Hawkins MD ramelteon (ROZEREM) tablet 8 mg, 8 mg, feeding tube, Nightly, Capri Curran MD, 8 mg at 08/09/222100 rosuvastatin (CRESTOR) tablet 10 mg, 10 mg, feeding tube, Nightly, Capri Curran MD, 10 mg at 08/09/222100 simethicone (MYLICON) 66.7 mg/mL oral drops 40 mg, 40 mg, feeding tube, TID PRN, Capri Curran MD, 40 mg at 08/08/22 1215 spironolactone (ALDACTONE) split tablet 12.5 mg, 12.5 mg, oral, Daily, Capri Curran MD, 12.5 mg at 08/09/22 0850 Scheduled Medications: apixaban, 5 mg, oral, Q12H NAVEED aspirin, 81 mg, oral, Daily furosemide, 40 mg, feeding tube, Daily losartan, 12.5 mg, feeding tube, Daily metoprolol XL, 12.5 mg, oral, Daily ramelteon, 8 mg, feeding tube, Nightly rosuvastatin, 10 mg, feeding tube, Nightly spironolactone, 12.5 mg, oral, Daily Continuous Medications: PRN Medications: acetaminophen sodium chloride 0.9% ondansetron phenoL simethicone Objective Vitals: Arrival Vitals Temp 08/03/22 1551 36.3 ??C (97.4 ??F) Pulse 08/03/22 1549 82 Resp 08/03/22 1549 22 BP 08/03/22 1549 98/68 SpO2 08/03/22 1551 94 % Temp src 08/03/22 1551 Axillary Heart Rate Source 08/03/221914 Monitor Patient Position 08/04/22 1000 HOB 30 degrees BP Location 08/04/22 0100 Right arm FiO2 (%) 08/03/221914 30 % Most Recent : Vitals: 08/10/22 0655 BP: 117/51 Resp: 18 Temp: 36.5 ??C (97.7 ??F) SpO2: I/O: Intake/Output Summary (Last 24 hours) at 08/10/2022 0730 Last data filed at 08/10/2022 0655 Gross per 24 hour Intake 200 ml Output 328 ml Net -128 ml Physical exam: General: No acute distress. HEENT: Sclera anicteric. Mucous membranes moist. Normal oropharynx. NGT in place. Cardiac: Regular rate and rhythm Pulmonary: Breathing comfortably on room air. Abdomen: Soft, nontender, nondistended. Extremities: No pedal edema. Warm and well-perfused. No cyanosis or clubbing. Skin: No visible rashes or lesions. Psychiatric: Full, appropriate, mood-congruent affect. Neurologic: Mental status: Alert. Oriented to person, place, time, and situation by choice Language: Speaks in appropriate one word phrases. Follows one step central and peripheral commands,unable to repeat, naming intact to high frequency objects but struggles with low frequency objects. Cranial nerves: PERRL, EOMI without gaze preference, visual krause full to finger wiggling, sensation intact to light touch in V1-V3 distributions, right facial droop, hearing intact to conversation,palate elevates symmetrically, mild dysarthria. Motor: R UE 4/5 LUE 5/5 throughout. R LE antigravity, LLE 5/5 throughout. Sensory: reports decreased sensation to light touch on right without extinction Coordination: Eiuauy-rdma-zgvlma on left ataxia. Reflexes: deferred Gait: deferred Lab/Radiology/Diagnostic Review: Recent Labs Lab Units 08/09/222129 WBC K/cumm 9.7 HEMOGLOBIN g/dL 11.3* HEMATOCRIT % 33.7* PLATELETS K/cumm 265 Recent Labs Lab Units 08/03/221956 APTT sec 27 INR 1.3* Recent Labs Lab Units 08/09/22203808/04/22210908/03/22 2100 SODIUM mmol/L 141 < > 141 POTASSIUM PLASMA mmol/L 4.1 < > 4.2 CHLORIDE mmol/L 100 < > 109 CO2 mmol/L 29 < > 23 ANIONGAP mmol/L 12 < > 9 GLUCOSE mg/dL 112 < > 146 POC GLUCOSE MONITOR -- < > -- BUN SERUM mg/dL 31* < > 11 CREATININE mg/dL 0.77 < > 0.69 CALCIUM mg/dL 9.5 < > 7.9* ALBUMIN g/dL -- -- 3.4* ALK PHOS Units/L -- -- 35* ALT Units/L -- -- 13 AST Units/L -- -- 26 BILIRUBIN TOTAL mg/dL -- -- 0.5 < > = values in this interval not displayed. Recent Labs Lab Units 08/09/222038 MAGNESIUM mg/dL 2.2 Recent Labs Lab Units 08/03/221956 HEMOGLOBIN A1C % 6.0* Recent Labs Lab Units 08/03/221956 CHOLESTEROL mg/dL 146 TRIGLYCERIDES mg/dL 77 HDL mg/dL 33* Neuro Imaging XR Abdomen Ap 1 Vw Result Date: [...] unchanged. Electronically signed by: Cy Hawley M.D. IR Percutaneous Arterial Thrombectomy, Intracranial Final Result 1. Left middle cerebral artery occlusion, TICI 0 2. Successful mechanical thrombectomy with TICI 2B reperfusion of the left middle cerebral artery Electronically signed by: Kamlesh Steele M.D. Other Relevant Diagnostics: TTE w/Doppler Hospital #: [id number] Date of : 1940 (F) Grain Trader: Luna Canchola RDCS Referring Physician: ANAMIKA NAZARIO MD Contrast Agent: 0.8 ml Optison Administered, (2.2 ml wasted). Contrast Administered by: FUR DRESSER Supervised/Interpreted by: Jaleel Banegas MD Diagnosis: Acute stroke Location: [facility] Reason for test: acute stroke, r/o lv thrombus, h/o hf MV Structure: Normal, MV Motion: Normal, Mitral Annulus: Normal AV Structure: tricuspid and is Normal, AV Motion: Normal Aotic root: Normal, TM: Normal, PV: Normal Valvular Vegetations: none seen, Mass/Thrombi: none seen RA: Normal Measurements: M-Mode Normal Aotic Root: <3.8 LA: <3.8 RV: <2.8 LV(ED): <5.7 LV(ES): Variable 2D Linear Normal Aotic Root: 2.8 cm <3.6 Ao Indexed: 1.6 cm/M2 <2.0 LA: <3.8 RV: 2.7 cm <4.2 LV(ED): 4.6 cm <5.3 LV(ES): 4.2 cm <3.5 2D Vol. Normal Indexed Indexed Normal RA: 41.0 ml 24.0 ml/M2 9-33 LA: 51.0 ml 29.8 ml/M2 16-34 RV: <11.6 LV(ED): 120.0 ml 46-106 70.2 ml/M2 <62 LV(ES): 99.0 ml 14-42 57.9 ml/M2 <25 3D Vol. Indexed Normal LV(ED): <62 LV(ES): <24 LV EF: 20 % (Mod. Parker's) (Normal: >=54%) LV Septum: 1.1 cm (Normal: <0.9 cm) Wall Motion Scoring (1=Normal 2=Hypo 3=Akinetic 4=Dyskin./Aneurysm 0=Not visualized) Parasternal Long [place]:MAS=2 BAS=2 MIL=2 SHAYAN=2 Parasternal Short [place]:MAS=2 MIS=2 AR=2 MIL=2 MAL=2 MA=2 Apical 4 Chambers:=2 MIS=2 BIS=2 BAL=2 MAL=2 AL=2 AC=2 Apical 2 Chambers:AI=2 AR=2 BI=2 BA=2 MA=2 AA=2 AC=2 LV Global Longitudinal Strain: RV Global Longitudinal Strain: LV Function: Severe Global reduction in LV Ejection Fraction (EF<30%); EF via modified Parker's. (NOTE: If patient has irreversible LV Cardiac Dysfunction with EF<30%, they are at risk for Sudden Cardiac .) RV Function: mild global hypokinesis Septal Motion: Normal Pericardial Effusion: none seen Atrial Septum: Normal DOPPLER/COLOR FLOW DOPPLER RESULTS: Diastolic Function: indeterminate Tricuspid Valve: mild TV regurgitation Pulmonic Valve: normal PV AV Regurgitation: No AR seen AV Stenosis: no AV Area: cm2 AV Pressure Gradient (mmHg): Mean: 0, Peak:0 MV Regurgitation: Mild MR MV Stenosis: no MS MV Area: cm2 MV Pressure Gradient (mmHg): Mean: 0 MV ERO: cm Regurg. Vol.: ml/beat Regurg. Frac.: % PA Pressure: 45 mmHg DOPPLER/COLOR FOLOW DOPPLER COMMENTS: No AR seen, Mild MR, no , no MS, mild TV regurgitation, normal PV. Diastolic function: indeterminate CONTRAST: 0.8 ml Optison Administered, (2.2 ml wasted). SUMMARY: Frequent PVCs. Normal LV volume, mass. Severe global LV systolic dysfunction (LVEF 20%). Dyssynchronous LV contraction c/w RV pacing. Indeterminate diastolic function. Normal AV. Mild MR. Normal LA size. Normal RV size with mild hypokinesis. Mild TR. PASP 45 mmHg. Dilated IVC c/w elevated RAP. Wire in RA/RV. Abdominal aortic atherosclerosis. No definite LV thrombus. No images for comparison. Confirmed on 08/05/2022 - 11:34:56 by Jaleel Banegas MD I have reviewed the above imaging/diagnostic results and discussed with my attending. Assessment and Plan Ms. Giron is a 82 y.o. right handed woman with past medical history of CAD, AR, SSS s/p Biotronikpacemaker, Atrial fibrillation (previously on Eliquis but not currently, s/p AV node ablation 2018), HLD, HTN, CHF who initially presented with acute right sided hemiparesis, right facial weakness, and became mute. She was found to have an acute L MCA occlusion s/p TNK and MT with TICI 2B, 1 pass aspiration. Impression/Etiology: Ms. Giron presents with right hemiparasis and global aphasia that localizes to the Left MCA territory. Etiologies highest on the differential for consideration per TOAST criteria is cardioembolism.Cardioembolism is most likely as she has a pacemaker in her right ventricle causing dyssynchornous squeeze of her left ventricle which could lead to clot formation, though no definitive thrombi were seen on TTE. Would note CTA findings significant for 80% stenosis of her left ICA, however based on 4v angiogram performed for MT LICA stenosis was estimated to be 50%. The patient will benefit from amelioration of stroke risk factors and optimization of stroke secondary prevention. The patient will be started on Aspirin 325mg Daily and The patient will also benefitfrom a high-intensity statin.. # acute left MCA stroke s/p TNK and mechanical thrombectomy TICI 2B Etiology: proximal embolism, namely suspect cardioembolism Risk Factors: Age > 55, hypertension, dyslipidemia, atrial fibrillation, and carotid artery stenosis Work up: - LDL 68, a1C 6.0 - EKG V paced 68 - HCT hyperdense L MCA, no hemorrhage - 4 vessel angiography with left ICA stenosis 50% - TTE EF 20%, dyssynchronous LV contraction 2/2 RV pacing, no definite thrombus - Loop on discharge: No Secondary Prevention: - Initially ASA 325mg daily, she was transitioned to AC (Eliquis) on 08/10 after she passed her swallow test and there was no longer a need to consider procedure for PEG placement - Atorvastatin 40mg Daily Blood Pressure: - Stroke BP Goal: Normotension <140/90 Risk Factor/Etiology Work-up: - Monitor on telemetry Consults: BEENA (Flue Lining Dipper, PT/OT, WOOD FINISHER APPRENTICE, Spiritual Care) #Hyperlipidemia LDL on admission was 68. Goal LDL for secondary stroke prevention is <70. She has previously refused anti-lipid medication reporting feeling unwell on medicaiton and with muscle pain without weakness. # CAD s/p AR with stent placement (2013) # HFrEF (LVEF 20%, was LVEF 40% in 2019) She follows with Dr. Hernandez [facility] Cardiology - last seen 07/18/22 in office. Home regimen: Furosemide 20mg daily, Spironolactone 25mg daily, Entresto 24-26 mg BID ((not being filled). Her last TTE documented 12/2019: mild global LV hypokinesis with EF 40% which is further reduced this admission. She will likely benefit from initiation and optimization of GDMT but will need to be weight against patient preference and family wishes. -- 08/06 TTE Frequent PVCs. Normal LV volume, mass. Severe global LV systolic dysfunction (LVEF 20%). Dyssynchronous LV contraction c/w RV pacing. Indeterminate diastolic function. Normal AV. Mild MR. Normal LA size. Normal RV size with mild hypokinesis. Mild TR. PASP 45 mmHg. Dilated IVC c/w elevated RAP.. No definite LV thrombus. - Consulted Cardiology: cont metop 6.25 BID, losartan 25 daily, Lasix 40 daily, start spironolactone 12.5 daily. Start Farxiga 10 daily on discharge - Continue Aspirin 81mg daily # Chronic atrial Fibrillation s/p AV node ablation (01/06/2019) # SSS s/p pacemaker - Has Biotronik pacemaker placed 07/2018 mode DDD with rate set at 70 BPM - Last interrogated 07/02/2022: 60% battery life remaining, demonstrated ???100% Afib burden?? - Rate controlled without medications and V-paced - Per prior family reports, was prescribed Eliquis 5 mg BID and taking intermittently, however her pharmacy ([facility]) indicates she does not fill this medication and her daughter indicates she does not fill at other pharmacies. - Start Eliquis in the next several days - will obtain HCT today - Telemetry - K > 4, Mg > 2 # Several bilateral femoral artery stenosis, incidental finding # Left subclavian occlusion, incidental finding - Subclavian finding noted on CTA - Femoral stenosis seen in diagnostic angiogram - can follow up outpatient with PCP or vascular - patient on antithrombotic therapy (Eliquis + Aspirin) and statin as indicated for 2' stroke prevention # Anemia, stable - H/H on admission 13/40.3 (08/03) with subsequent drop to 9.6 appearing spurious and suspect drawn from IV (as BMP at that time with hyperNa and hypoK that resolved upon recheck) with repeat 11.5 - Hgb stable now ~11 - Monitor Hgb in CBC daily - Maintain Hgb > 7 g/dL # Hx of Anxiety - In past had Rx for alprazolam and reportedly took it rarely, this is not an active medication andnot filled at pharmacy - Monitor clinically, avoid adding new medications that could confound neurologic exam # Post-stroke dysphagia Passed for dysphagia 1 diet after an MBS was performed on 08/08. Continue to advance diet # Troponemia (resolved) - Trop I hs peaked at 230 (105-->140-->230-->225) - no further trend - Likely secondary to demand ischemia in context of acute stroke, intubation however does have CAD with history of stent - Follow-up TTE to evaluate for wall motion abnormalities - Monitor on telemetry - likely 2/2 demand ischemia #Hypotension (resolved) Blood pressure in the field was 68/31, 90/45 at [place]. Initially responded to fluid boluses. Noted to have chronic left subclavian occlusion on CT CAP 08/03 and severe femoral stenosis on angiogram. Wide pulse pressure noted on her A line while in NNICU suggests arteriosclerosis. Disposition: Inpatient Rehab Code Status: LIMITED - No CPR Diet: Dysphagia 1, regular liquid DVT Prophylaxis: Lovenox Lines/Tubes: Peripheral IV 08/03/22 18 G Anterior;Right Hand (Active) Number of days: 2 Peripheral IV 08/03/22 18 G Left Hand (Active) Number of days: 2 Urethral Catheter Non-latex;Temperature probe (Active) Number of days: 2 NG/OG Tube Nasogastric 12 Fr Right nostril (Active) Number of days: 1 Capri Curran MD Neurology Resident Physician, PGY-3 [facility] Stroke Neurology [phone] Cosigned by Foreign Melendez MD PhD at 08/11/2022 12:31 PM CDT Associated attestation - Foreign Melendez MD PhD - 08/11/2022 12:31 PM CDT I have seen and examined the patient on 08/10/2022. I agree with the findings and plan of care as documented in the resident's/fellow's note.. * Armaandiane Debra - 08/09/2022 1:59 PM CDT Occupational Therapy 08/09/22 1359 General Session Type Treatment OT Received On 08/09/22 Safe Environment Arm band checked;Patient found in supine;Session completed bedside;Gait belt utilized for all out of bed mobility Subjective Agreeable to Therapy Family/Caregiver Present Yes (Daughters) Precautions Precautions Aspiration;Fall risk;GENNY Weight Bearing Restrictions No Pain Assessment Pain Assessment No/denies pain Pain Score 0 - No pain Balance Balance Yes Static Sitting Balance Static Sitting-Balance Support Left upper extremity supported Static Sitting-Sitting Surface Bed Static Sitting-Level of Assistance Close supervision Static Sitting-Comment/# of Minutes safety Dynamic Sitting Balance Dynamic Sitting-Balance Support Left upper extremity supported Dynamic Sitting-Balance Forward lean Dynamic Sitting-Sitting Surface Bed;Chair Dynamic Sitting-Level of Assistance Close supervision Static Standing Balance Static Standing-Balance Support Unilateral upper extremity supported Static Standing-Standing Surface Floor Static Standing-Level of Assistance Minimum assistance Dynamic Standing Balance Dynamic Standing-Balance Support Left upper extremity supported Dynamic Standing-Balance Forward lean Dynamic Standing-Standing Surface Floor Dynamic Standing-Level of Assistance Moderate assistance Dynamic Standing-Comments RLE blocking and balance, ADL ADLS (WDL) X Grooming Grooming: Where assessed Chair Grooming: Level of assistance Moderate Assist (min A task, mod balance) Grooming: Assistance with Manipulation of containers LE Dressing LE Dressing: Where assessed Sitting LE Dressing: Level of assistance Moderate Assist (mod task, mod balance) Bed Mobility Bed Mobility Yes Bed Mobility 1 Bed Mobility From 1 Supine Bed Mobility Type 1 To Bed Mobility to 1 Edge of bed Level of Assistance 1 Distant Supervision Bed Mobility Comments 1 safety, V/C's to scoot hips toward EOB Transfers Transfer Yes Transfer 1 Transfer From 1 Sit Transfer Type 1 To and from Transfer to 1 Stand Technique 1 Sit to stand;Stand to sit Transfer Device 1 No device Transfer Level of Assistance 1 Moderate Assist Trials/Comments 1 balance RLE Toilet Transfers Toilet Transfer From Bed Toilet Transfer Type To Toilet Transfer to Standard bedside commode (simulated by chair) Toilet Transfer Technique Ambulating Toilet Transfers Moderate assistance Toilet Transfers Comments RLE blocking, balance RUE Assessment RUE Assessment X RUE Comments Decreased strength, WFL AROM LUE Assessment LUE Assessment WFL Cognition Arousal/Alertness Alert Orientation Oriented to person;Oriented to place;Oriented to situation Following Commands Follows all commands and directions without difficulty Compliance/Behavior Easy to engage Daily Activity - 6 Clicks Putting on and taking off regular lower body clothing 2 Bathing 2 Toileting 2 Putting on and taking off upper body clothing 2 Personal Grooming 2 Eating Meals 2 Total Score (range 6-24) 12 Score Interpretation 30.60 Safe Environment End of Therapy Session Safe Environment End of Therapy Session Patient left in recliner;Chair alarm in place and activated;Sequential compressive devices on legs and activated;Call light within reach;Overbed table within reach Assessment Problem List Decreased upper extremity range of motion;Decreased upper extremity strength;Decreasedsafe judgment during ADL;Decreased cognition;Decreased balance;Decreased fine motor control;Decreased functional mobility;Decreased ADL independence;Decreased IADL independence;Decreased UE function Barriers to Discharge Current Mobility Status;Cognition;Decreased safety awareness Plan Plan Continue with current plan;If this is the last note, consider this the discharge summary Recommendation/Plan OT Recommendation Inpatient Rehab Facility Patient at high risk for Falls;Readmission;Injury due to decreased ability to care for self;Injury due to reduced functional status;Injury due to impaired cognition;Injury due to balance deficits;Injury at home as patient has not returned to prior level of function;Mismanagement of medications Recommend Inpatient Rehab/Acute Rehab due to Ability to actively participate in intensive therapy 3hours/day, 5 days/week or 900 minutes per week;Highly motivated to participate in therapy;Not at baseline due to impaired ability to complete ADLs;Impaired ability to complete functional mobility;Requires greater than 25% physical assistance with most mobility tasks;Requires greater than 25% physical assistance with most ADL tasks;Requires multiple therapy disciplines to address functional deficits;Requires skilled therapy interventions to address neurological deficits OT Frequency during current admission 3-5x/wk Treatment/Interventions during current admission ADL/IADL retraining;Balance Training;Endurance training;Equipment eval/education;Functional activity;Functional mobility training;Functional transfer training;Therapeutic activity;Therapeutic exercise;Transfer training;Upper extremity motor function/f unctional skills Progress during current admission Progressing toward goals OT - Next Appointment 08/12/22 OT Evaluation Complete Yes Occupational Therapy Progress Note NOTE: This is a summary note of the cisse components of the treatment session. For full details, review chart for all flowsheets documented on by this occupational therapy clinician on this date. Vitalsigns documented in vital signs flowsheet. Care plan progress documented in Care Plan Activity. For questions, please review the treatment team and contact the occupational therapist currently assigned to this patient. If an occupational therapist is not assigned to this patient, please call [phone]. Multi-Disciplinary Problems (from Occupational Therapy) Active Problems Problem: Dressings Lower Extremities Start Date: 08/05/22 Goal Start Date Expected End Date End Date STG - Patient to complete lower body dressing with supervision. 08/05/22 08/12/22 -- Problem: Grooming Start Date: 08/05/22 Goal Start Date Expected End Date End Date STG - Patient will complete grooming tasks with supervision. 08/05/22 08/12/22 -- Problem: Transfers Start Date: 08/05/22 Goal Start Date Expected End Date End Date STG - Patient will perform toilet transfer with supervision. 08/05/22 08/12/22 -- Problem: OT Misc Start Date: 08/05/22 Goal Start Date Expected End Date End Date OT LTG - Patient will perform ADLs independently. 08/05/22 09/05/22 -- Cosigned by Luciana Potter OT at 08/09/2022 2:58 PM CDT * Donis Renate Samia, RD - 08/09/2022 12:52 PM CDT Nutrition Screen Note Pt. Screened for nutritional assessment secondary to LOS Past Medical History: Diagnosis Date Adiposity obesity [...] Atrial Fibrillation: Cardiovascular Intervention (ablation) SKIN BIOPSY Anthropometrics Weight: 71.5 kg (157 lb 10.1 oz) Admission Weight : 72.1 kg Weight Change: -0.60 kg (-1.32 lbs) IBW/kg (Calculated) : 47.6 kg Height: 154.9 cm (5' 1 ) Weight in (lb) to have BMI = 25: 132 BMI (Calculated): 29.8 Dietary Orders (From admission, onward) Start Ordered 08/09/22 1255 Oral Nutrition Supplements Select Supplement: Ensure Max - Roc With Breakfast and Dinner Question: Select Supplement: Answer: Ensure Max - Roc 08/09/22 1254 08/08/22 1519 Adult Diet Regular, GI Diets; Dysphagia 1 (pureed) Diet effective now Question Answer Comment (BJ) Diet type Regular (BJ) Diet type GI Diets Modified Consistency: Dysphagia 1 (pureed) 08/08/22 1518 Assessment / Impression: Pt screened for LOS. Pt reports having a good appetite, eating 25-75% of meals per chart review. Encouraged PO intake >50% of meals. Recommended nutrition supplements to help add calories and protein. Ordered Ensure Max BID per pt preference (wanted a supplement low in sugar ). She endorsed nausea on occasion, said she received zofran. Denied diarrhea or constipation,+BM 08/07. Continue to encourage PO intake >50% of meals. RD following. Renate Dykes, MS, RD, LD [phone] Weekend/Chemical Machine Tender: [phone] * Marci Puente, PT - 08/09/2022 9:28 AM CDT Physical Therapy Physical Therapy Progress Note NOTE: This is a summary note of the cisse components of the treatment session. For full details, review chart for all flowsheets documented on by this physical therapy clinician on this date. Vital signs documented in vital signs flowsheet. Care plan progress documented in Care Plan Activity. For questions, please review the treatment team and contact the PT or [employer] PROMOTER currently assigned to this patient. If a physical therapy clinician is not assigned to this patient, please call [phone]. 08/09/22 09 PT Last Visit Session Type Treatment PT Received On 08/09/22 Safe Environment Arm band checked Subjective Agreeable to Therapy Subjective Comment pt supine in bed at start of session, bed alarm on Family/Caregiver Present Yes (family) Precautions Precautions Fall risk Pain Assessment Pain Assessment No/denies pain Cognition Arousal/Alertness Alert Following Commands Follows multistep commands with increased time Static Sitting Balance Static Sitting-Balance Support Left upper extremity supported;Feet supported Static Sitting-Sitting Surface Bed Static Sitting-Level of Assistance Close supervision Static Standing Balance Static Standing-Balance Support Left upper extremity supported Static Standing-Standing Surface Floor Static Standing-Level of Assistance Minimum assistance Bed Mobility 1 Bed Mobility From 1 Supine Bed Mobility Type 1 To Bed Mobility to 1 Edge of bed Level of Assistance 1 Minimum Assist Bed Mobility Comments 1 assist to elevate trunk, scoot hips forward Transfer 1 Transfer From 1 Sit Transfer Type 1 To and from Transfer to 1 Stand Transfer Device 1 Hand held assist Transfer Level of Assistance 1 Minimum Assist Trials/Comments 1 assist for balance; stood x 3 Transfers 2 Transfer From 2 Bed Transfer Type 2 To Transfer to 2 Chair with arms Technique 2 Stand and step Transfer Device 2 Hand held assist Transfer Level of Assistance 2 Minimum Assist Trials/Comments 2 assist for balance Ambulation 1 Distance (ft) 1 36 Surface 1 Level tile Device 1 Hand held assist Assistance 1 Minimum Assist Gait: Requires assist with 1 Maintaining balance Gait: Requires verbal cues to 1 (cues to take longer steps with RLE) Quality of Gait 1 slow kimberly, tending to drag RLE but responsive to cueing Other Comments Other PT Comments Gait belt used for all mobility; pt in recliner with call light in reach at end of session, scds on. Chair alarm on. Basic Mobility - 6 Click How much difficulty does the patient have: Turning over in bed 3 How much difficulty does the patient currently have: Sitting down and standing up from a chair witharms? 3 How much difficulty does the patient have: Moving from lying on back to sitting on the side of the bed? 3 How much difficulty does the patient have: Moving to and from a bed to a chair including wheelchair? 3 How much help does the patient currently need: Walk in hospital room? 3 How much help from another person does the patient currently need: Climbing 3-5 steps with a railing? 2 Total 6 Click Score (range 6-24) 17 Score Interpretation 39.67 Safe Environment End of Therapy Session Safe Environment End of Therapy Session Chair alarm in place and activated;Patient left in recliner;RN notified;Call light within reach;Overbed table within reach Assessment Problem List Gait deviations;Decreased strength;Decreased endurance;Impaired balance;Decreased mobility Plan Plan Continue with current plan;If this is the last note, consider this the discharge summary Recommendation/Plan PT Recommendation/Plan Inpatient Rehab Facility Patient at high risk for Falls;Readmission;Injury due to decreased ability to care for self;Injury due to reduced functional status;Injury due to balance deficits Recommend Inpatient Rehab/Acute Rehab due to Ability to actively participate in intensive therapy 3hours/day, 5 days/week or 900 minutes per week;Highly motivated to participate in therapy;Not at baseline due to impaired ability to complete ADLs;Impaired ability to complete functional mobility;Likely to return to the community at discharge with support system in place;Requires greater than 25% physical assistance with most mobility tasks PT Frequency during current admission 3-5x/wk Treatment/Interventions during current admission Bed mobility;Balance Training;Functional activity;Functional transfer training;Gait training PT - Next Appointment 08/12/22 Multi-Disciplinary Problems (from Physical Therapy) Active Problems Problem: Mobility Start Date: 08/05/22 Goal Start Date Expected End Date End Date LTG - Patient will demonstrate functional mobility with the following level of assist: mod I 08/05/22 09/16/22 -- Goal Start Date Expected End Date End Date STG - Patient will ambulate 50 feet with LRD, min assist 08/05/22 08/19/22 -- Problem: Transfers Start Date: 08/05/22 Goal Start Date Expected End Date End Date STG - Transfer from bed to chair with supervision 08/05/22 08/19/22 -- Goal Start Date Expected End Date End Date STG - Patient to transfer to and from sit to supine with supervision 08/05/22 08/19/22 -- Goal Start Date Expected End Date End Date STG - Patient will transfer sit to and from stand with supervision 08/05/22 08/19/22 -- * Evelyn Hawkins MD - 08/09/2022 8:23 AM CDT Stroke Daily Progress Note Patient Name: Abena Giron Date of / Age: 1 1940 / 82 y.o. Gender: female Date of Service: 08/09/2022 [facility] PCP: Jaleel Mcgovern MD Neurologist SUBJECTIVE CHIEF COMPLAINT: right sided hemiparesis, right facial weakness, global aphasia BRIEF HPI: Abena Giron is a 82 y.o. woman with a past medical history of CAD, AR, SSS s/p Biotronik pacemaker, Atrial fibrillation (previously on Eliquis but not currently, s/p AV node ablation 2018), HLD, HTN, CHF who initially presented with acute right sided hemiparesis, right facial weakness, and became mute. She was found to have an acute L MCA occlusion s/p TNK and MT with TICI 2B, 1 pass aspiration. And was transferred to NNICU after. She arrived to the NNCIU intubated and was able to be extubated the following morning 08/04. ICU course significant for ventilator-associated agitation s/p precedex 08/03-08/04. She only remained intubated to facilitate lying flat following manual compression closure of femoral access sites. She was started on atorvastatin and aspirin 325 mg with plan to continue until transition to oral anticoagulation. She was stable for transfer to the floor. Her SMART consult was completed while in the NNICU and she has been recommended for IPR by PT and OT. She underwent a modified barium study and passed for dysphagia 1 diet. Interval Events: - MBS yesterday - passed for dysphagia 1 diet Plan today: - Advancing diet - PT/OT HISTORY Past Medical History: Past Medical History: Diagnosis Date Adiposity obesity [...] infarction (CMS/HCC) (HCC) 2015 Sleep apnea Vertigo Surgical History: Past Surgical History: Procedure Laterality Date ABDOMINAL SURGERY CARDIAC PACEMAKER PLACEMENT CATARACT EXTRACTION W/ INTRAOCULAR LENS IMPLANT Bilateral CHOLECYSTECTOMY 1981 Cholecystectomy EYE SURGERY OTHER SURGICAL HISTORY Right 1980 partial oopherectomy OTHER SURGICAL HISTORY heart cath with stent 2014 [place]/[facility] OTHER SURGICAL HISTORY 2016 a.fib: loop recorder implanted OTHER SURGICAL HISTORY 2016 Atrial Fibrillation: Cardiovascular Intervention (ablation) SKIN BIOPSY Family History: family history includes Breast cancer in her child; COPD in her father; Cancer in her brother; Dementia in her father and mother; Depression in her brother, father, and mother; Hypertension in her brother; Other in her mother and sister; Other (age of onset: 75) in her sister. Social History: reports that she quit smoking about 48 years ago. Her smoking use included cigarettes. She has never used smokeless tobacco. She reports that she does not use drugs. No alcohol history on file. Social History Social History Narrative Agrees to blood/blood products: Y Agrees to blood/blood products: Y Allergies: Allergies Allergen Reactions Phenobarbital Hallucinations Codeine Rash, [...] (See comments) severe heart pain Diltiazem Itching MEDICATIONS Home Medications: Current Facility-Administered Medications: acetaminophen (TYLENOL) 32 mg/mL oral liquid 650 mg, 650 mg, feeding tube, Q4H PRN, Alice Yoo NP,650 mg at 08/07/22 0628 aspirin tablet 325 mg, 325 mg, feeding tube, Daily, Citlaly Freire NP, 325 mg at 08/08/22 0852 Carrier Fluids for Secondary Infusion - 0.9% Sodium Chloride, 30 mL, intravenous, PRN, Alice Yoo NP, 30 mL at 08/03/222350 enoxaparin (LOVENOX) syringe 40 mg, 40 mg, subcutaneous, Daily-2100, Citlaly Freire NP, 40 mg at 08/08/222058 furosemide (LASIX) tablet 40 mg, 40 mg, feeding tube, Daily, Capri Curran MD losartan (COZAAR) tablet 12.5 mg, 12.5 mg, feeding tube, Daily, Capri Curran MD metoprolol tartrate immediate release capsule 6.25 mg, 6.25 mg, feeding tube, BID, Capri Curran MD, 6.25 mg at 08/08/222055 ondansetron (ZOFRAN) injection 4 mg, 4 mg, intravenous, Q6H PRN, Alice Yoo NP, 4 mg at 08/07/221936 phenoL (CHLORASEPTIC) 1.4 % oral spray 1 spray, 1 spray, mouth/throat, Q4H PRN, Evelyn Hawkins MD ramelteon (ROZEREM) tablet 8 mg, 8 mg, feeding tube, Nightly, Capri Curran MD, 8 mg at 08/08/222053 rosuvastatin (CRESTOR) tablet 10 mg, 10 mg, feeding tube, Nightly, Capri Curran MD, 10 mg at 08/08/222053 simethicone (MYLICON) 66.7 mg/mL oral drops 40 mg, 40 mg, feeding tube, TID PRN, Capri Curran MD, 40 mg at 08/08/22 1215 spironolactone (ALDACTONE) split tablet 12.5 mg, 12.5 mg, oral, Daily, Capri Curran MD Scheduled Medications: aspirin, 325 mg, feeding tube, Daily enoxaparin, 40 mg, subcutaneous, Daily-2100 furosemide, 40 mg, feeding tube, Daily losartan, 12.5 mg, feeding tube, Daily metoprolol tartrate, 6.25 mg, feeding tube, BID ramelteon, 8 mg, feeding tube, Nightly rosuvastatin, 10 mg, feeding tube, Nightly spironolactone, 12.5 mg, oral, Daily Continuous Medications: PRN Medications: acetaminophen sodium chloride 0.9% ondansetron phenoL simethicone Objective Vitals: Arrival Vitals Temp 08/03/22 1551 36.3 ??C (97.4 ??F) Pulse 08/03/22 1549 82 Resp 08/03/22 1549 22 BP 08/03/22 1549 98/68 SpO2 08/03/22 1551 94 % Temp src 08/03/22 1551 Axillary Heart Rate Source 08/03/22 1915 Monitor Patient Position 08/04/22 1000 HOB 30 degrees BP Location 08/04/22 0100 Right arm FiO2 (%) 08/03/22 1915 30 % Most Recent : Vitals: 08/09/22 0646 BP: 115/62 Pulse: 80 Resp: 18 Temp: 37 ??C (98.6 ??F) SpO2: 97% I/O: Intake/Output Summary (Last 24 hours) at 08/09/2022 0823 Last data filed at 08/09/2022 0550 Gross per 24 hour Intake 170 ml Output 350 ml Net -180 ml Physical exam: General: No acute distress. HEENT: Sclera anicteric. Mucous membranes moist. Normal oropharynx. NGT in place. Cardiac: Regular rate and rhythm Pulmonary: Breathing comfortably on room air. Abdomen: Soft, nontender, nondistended. Extremities: No pedal edema. Warm and well-perfused. No cyanosis or clubbing. Skin: No visible rashes or lesions. Psychiatric: Full, appropriate, mood-congruent affect. Neurologic: Mental status: Alert. Oriented to person, place, time, and situation by choice Language: Speaks in appropriate one word phrases. Follows one step central and peripheral commands,unable to repeat, names hand , cannot name knuckles . Cranial nerves: PERRL, left gaze preference but crosses midline, visual krause full to finger wiggling, sensation intact to light touch in V1-V3 distributions, right facial droop, hearing intact to conversation, palate elevates symmetrically, mild dysarthria. Motor: R UE antigravity. LUE 5/5 throughout. R LE briefly antigravity, LLE 5/5 throughout. Sensory: reports decreased sensation to light touch on right without extinction Coordination: [id number] on left ataxia. Reflexes: deferred Gait: deferred Lab/Radiology/Diagnostic Review: Recent Labs Lab Units 08/08/222138 WBC K/cumm 13.2* HEMOGLOBIN g/dL 12.4 HEMATOCRIT % 37.2 PLATELETS K/cumm 263 Recent Labs Lab Units 08/03/221956 APTT sec 27 INR 1.3* Recent Labs Lab Units 08/08/22 2253 08/08/22213808/04/22 2110 08/03/22 2100 SODIUM mmol/L -- 141 < > 141 POTASSIUM PLASMA mmol/L -- 4.1 < > 4.2 CHLORIDE mmol/L -- 100 < > 109 CO2 mmol/L -- 33* < > 23 ANIONGAP mmol/L -- 8 < > 9 GLUCOSE mg/dL -- 119 < > 146 POC GLUCOSE MONITOR mg/dL 124 -- -- -- BUN SERUM mg/dL -- 20 < > 11 CREATININE mg/dL -- 0.71 < > 0.69 CALCIUM mg/dL -- 9.3 < > 7.9* ALBUMIN g/dL -- -- -- 3.4* ALK PHOS Units/L -- -- -- 35* ALT Units/L -- -- -- 13 AST Units/L -- -- -- 26 BILIRUBIN TOTAL mg/dL -- -- -- 0.5 < > = values in this interval not displayed. Recent Labs Lab Units 08/08/222138 MAGNESIUM mg/dL 2.1 Recent Labs Lab Units 08/03/221956 HEMOGLOBIN A1C % 6.0* Recent Labs Lab Units 08/03/221956 CHOLESTEROL mg/dL 146 TRIGLYCERIDES mg/dL 77 HDL mg/dL 33* Neuro Imaging XR Abdomen Ap 1 Vw Result Date: [...] unchanged. Electronically signed by: Cy Hawley M.D. IR Percutaneous Arterial Thrombectomy, Intracranial Final Result 1. Left middle cerebral artery occlusion, TICI 0 2. Successful mechanical thrombectomy with TICI 2B reperfusion of the left middle cerebral artery Electronically signed by: Kamlesh Steele M.D. Other Relevant Diagnostics: TTE /Doppler [facility] #: [id number] Date of : 1940 (F) Grain Trader: Luna Canchola RDCS Referring Physician: ANAMIKA NAZARIO MD Contrast Agent: 0.8 ml Optison Administered, (2.2 ml wasted). Contrast Administered by: FUR DRESSER Supervised/Interpreted by: Jaleel Banegas MD Diagnosis: Acute stroke Location: [facility] Reason for test: acute stroke, r/o lv thrombus, h/o hf MV Structure: Normal, MV Motion: Normal, Mitral Annulus: Normal AV Structure: tricuspid and is Normal, AV Motion: Normal Aotic root: Normal, TM: Normal, PV: Normal Valvular Vegetations: none seen, Mass/Thrombi: none seen RA: Normal Measurements: M-Mode Normal Aotic Root: <3.8 LA: <3.8 RV: <2.8 LV(ED): <5.7 LV(ES): Variable 2D Linear Normal Aotic Root: 2.8 cm <3.6 Ao Indexed: 1.6 cm/M2 <2.0 LA: <3.8 RV: 2.7 cm <4.2 LV(ED): 4.6 cm <5.3 LV(ES): 4.2 cm <3.5 2D Vol. Normal Indexed Indexed Normal RA: 41.0 ml 24.0 ml/M2 9-33 LA: 51.0 ml 29.8 ml/M2 16-34 RV: <11.6 LV(ED): 120.0 ml 46-106 70.2 ml/M2 <62 LV(ES): 99.0 ml 14-42 57.9 ml/M2 <25 3D Vol. Indexed Normal LV(ED): <62 LV(ES): <24 LV EF: 20 % (Mod. Parker's) (Normal: >=54%) LV Septum: 1.1 cm (Normal: <0.9 cm) Wall Motion Scoring (1=Normal 2=Hypo 3=Akinetic 4=Dyskin./Aneurysm 0=Not visualized) Parasternal Long [place]:MAS=2 BAS=2 MIL=2 SHAYAN=2 Parasternal Short [place]:MAS=2 MIS=2 AR=2 MIL=2 MAL=2 MA=2 Apical 4 Chambers:=2 MIS=2 BIS=2 BAL=2 MAL=2 AL=2 AC=2 Apical 2 Chambers:AI=2 AR=2 BI=2 BA=2 MA=2 AA=2 AC=2 LV Global Longitudinal Strain: RV Global Longitudinal Strain: LV Function: Severe Global reduction in LV Ejection Fraction (EF<30%); EF via modified Parker's. (NOTE: If patient has irreversible LV Cardiac Dysfunction with EF<30%, they are at risk for Sudden Cardiac .) RV Function: mild global hypokinesis Septal Motion: Normal Pericardial Effusion: none seen Atrial Septum: Normal DOPPLER/COLOR FLOW DOPPLER RESULTS: Diastolic Function: indeterminate Tricuspid Valve: mild TV regurgitation Pulmonic Valve: normal PV AV Regurgitation: No AR seen AV Stenosis: no AV Area: cm2 AV Pressure Gradient (mmHg): Mean: 0, Peak:0 MV Regurgitation: Mild MR MV Stenosis: no MS MV Area: cm2 MV Pressure Gradient (mmHg): Mean: 0 MV ERO: cm Regurg. Vol.: ml/beat Regurg. Frac.: % PA Pressure: 45 mmHg DOPPLER/COLOR FOLOW DOPPLER COMMENTS: No AR seen, Mild MR, no , no MS, mild TV regurgitation, normal PV. Diastolic function: indeterminate CONTRAST: 0.8 ml Optison Administered, (2.2 ml wasted). SUMMARY: Frequent PVCs. Normal LV volume, mass. Severe global LV systolic dysfunction (LVEF 20%). Dyssynchronous LV contraction c/w RV pacing. Indeterminate diastolic function. Normal AV. Mild MR. Normal LA size. Normal RV size with mild hypokinesis. Mild TR. PASP 45 mmHg. Dilated IVC c/w elevated RAP. Wire in RA/RV. Abdominal aortic atherosclerosis. No definite LV thrombus. No images for comparison. Confirmed on 08/05/2022 - 11:34:56 by Jaleel Banegas MD I have reviewed the above imaging/diagnostic results and discussed with my attending. Assessment and Plan Ms. Giron is a 82 y.o. right handed woman with past medical history of CAD, AR, SSS s/p Biotronikpacemaker, Atrial fibrillation (previously on Eliquis but not currently, s/p AV node ablation 2019), HLD, HTN, CHF who initially presented with acute right sided hemiparesis, right facial weakness, and became mute. She was found to have an acute L MCA occlusion s/p TNK and MT with TICI 2B, 1 pass aspiration. Impression/Etiology: Ms. Giron presents with right hemiparasis and global aphasia that localizes to the Left MCA territory. Etiologies highest on the differential for consideration per TOAST criteria is cardioembolism.Cardioembolism is most likely as she has a pacemaker in her right ventricle causing dyssynchornous squeeze of her left ventricle which could lead to clot formation, though no definitive thrombi were seen on TTE. Would note CTA findings significant for 80% stenosis of her left ICA, however based on 4v angiogram performed for MT LICA stenosis was estimated to be 50%. The patient will benefit from amelioration of stroke risk factors and optimization of stroke secondary prevention. The patient will be started on Aspirin 325mg Daily and The patient will also benefitfrom a high-intensity statin.. # acute left MCA stroke s/p TNK and mechanical thrombectomy TICI 2B Etiology: proximal embolism, namely suspect cardioembolism Risk Factors: Age > 55, hypertension, dyslipidemia, atrial fibrillation, and carotid artery stenosis Work up: - LDL 68, a1C 6.0 - EKG V paced 68 - HCT hyperdense L MCA, no hemorrhage - 4 vessel angiography with left ICA stenosis 50% - TTE EF 20%, dyssynchronous LV contraction 2/2 RV pacing, no definite thrombus - Loop on discharge: No Secondary Prevention: - ASA 325mg - can d/c once anticoagulation is started from 2' stroke prevention, unless dual therapy is indicated for another medical condition - Atorvastatin 40mg Daily Blood Pressure: - Stroke BP Goal: Normotension <140/90 Risk Factor/Etiology Work-up: - Monitor on telemetry Consults: SMART (Flue Lining Dipper, PT/OT, WOOD FINISHER APPRENTICE, Spiritual Care) #Hyperlipidemia LDL on admission was 68. Goal LDL for secondary stroke prevention is <70. She has previously refused anti-lipid medication reporting feeling unwell on medicaiton and with muscle pain without weakness. # CAD s/p AR with stent placement (2013) # HFrEF (LVEF 20%, was LVEF 40% in 2019) She follows with Dr. Hernandez [facility] Cardiology - last seen 07/18/22 in office. Home regimen: Furosemide 20mg daily, Spironolactone 25mg daily, Entresto 24-26 mg BID ((not being filled). Her last TTE documented 12/2019: mild global LV hypokinesis with EF 40% which is further reduced this admission. She will likely benefit from initiation and optimization of GDMT but will need to be weight against patient preference and family wishes. -- 08/06 TTE Frequent PVCs. Normal LV volume, mass. Severe global LV systolic dysfunction (LVEF 20%). Dyssynchronous LV contraction c/w RV pacing. Indeterminate diastolic function. Normal AV. Mild MR. Normal LA size. Normal RV size with mild hypokinesis. Mild TR. PASP 45 mmHg. Dilated IVC c/w elevated RAP.. No definite LV thrombus. - Consulted Cardiology: cont metop 6.25 BID, losartan 25 daily, Lasix 40 daily, start spironolactone 12.5 daily. Start Farxiga 10 daily on discharge # Chronic atrial Fibrillation s/p AV node ablation (01/06/2019) # SSS s/p pacemaker - Has Biotronik pacemaker placed 07/2018 mode DDD with rate set at 70 BPM - Last interrogated 07/02/2022: 60% battery life remaining, demonstrated ???100% Afib burden?? - Rate controlled without medications and V-paced - Per prior family reports, was prescribed Eliquis 5 mg BID and taking intermittently, however her pharmacy ([facility]) indicates she does not fill this medication and her daughter indicates she does not fill at other pharmacies. - Start Eliquis in the next several days - will obtain HCT today - Telemetry - K > 4, Mg > 2 # Several bilateral femoral artery stenosis, incidental finding # Left subclavian occlusion, incidental finding - Subclavian finding noted on CTA - Femoral stenosis seen in diagnostic angiogram - can follow up outpatient with PCP or vascular - patient on antithrombotic therapy and statin as indicated for 2' stroke prevention # Anemia, stable - H/H on admission 13/40.3 (08/03) with subsequent drop to 9.6 appearing spurious and suspect drawn from IV (as BMP at that time with hyperNa and hypoK that resolved upon recheck) with repeat 11.5 - Hgb stable now ~11 - Monitor Hgb in CBC daily - Maintain Hgb > 7 g/dL # Hx of Anxiety - In past had Rx for alprazolam and reportedly took it rarely, this is not an active medication andnot filled at pharmacy - Monitor clinically, avoid adding new medications that could confound neurologic exam # Post-stroke dysphagia Passed for dysphagia 1 diet after an MBS was performed on 08/08. # Troponemia (resolved) - Trop I hs peaked at 230 (105-->140-->230-->225) - no further trend - Likely secondary to demand ischemia in context of acute stroke, intubation however does have CAD with history of stent - Follow-up TTE to evaluate for wall motion abnormalities - Monitor on telemetry - likely 2/2 demand ischemia #Hypotension (resolved) Blood pressure in the field was 68/31, 90/45 at [place]. Initially responded to fluid boluses. Noted to have chronic left subclavian occlusion on CT CAP 08/03 and severe femoral stenosis on angiogram. Wide pulse pressure noted on her A line while in NNICU suggests arteriosclerosis. Disposition: Inpatient Rehab Code Status: LIMITED - No CPR Diet: TF through NGT DVT Prophylaxis: Lovenox Lines/Tubes: Peripheral IV 08/03/22 18 G Anterior;Right Hand (Active) Number of days: 2 Peripheral IV 08/03/22 18 G Left Hand (Active) Number of days: 2 Urethral Catheter Non-latex;Temperature probe (Active) Number of days: 2 NG/OG Tube Nasogastric 12 Fr Right nostril (Active) Number of days: 1 Evelyn Hawkins MD Neurology Resident Physician, PGY-3 [facility] Stroke Neurology [phone] Cosigned by Adryan Bailon MD at 08/09/2022 1:34 PM CDT Associated attestation - Adryan Bailon MD - 08/09/2022 1:34 PM CDT I have seen and examined the patient on 08/09/22. I agree with the findings and plan of care as documented in the resident's/fellow's note. My total encounter time on 08/09/22 was 15 minutes which was spent in the activities documented in the note. This includes time spent prior to the visit and after the visit in direct care of the patient. This time does not include time spent in any separatelyreportable services. * Capri Curran MD - 08/08/2022 8:32 AM CDT Stroke Daily Progress Note Patient Name: Abena Giron Date of / Age: 1 1940 / 82 y.o. Gender: female Date of Service: 08/08/2022 [facility] PCP: Jaleel Mcgovern MD Neurologist SUBJECTIVE CHIEF COMPLAINT: right sided hemiparesis, right facial weakness, global aphasia BRIEF HPI: Abena Giron is a 82 y.o. woman with a past medical history of CAD, AR, SSS s/p Biotronik pacemaker, Atrial fibrillation (previously on Eliquis but not currently, s/p AV node ablation 2018), HLD, HTN, CHF who initially presented with acute right sided hemiparesis, right facial weakness, and became mute. She was found to have an acute L MCA occlusion s/p TNK and MT with TICI 2B, 1 pass aspiration. And was transferred to NNICU after. She arrived to the NNCIU intubated and was able to be extubated the following morning 08/04. ICU course significant for ventilator-associated agitation s/p precedex 08/03-08/04. She only remained intubated to facilitate lying flat following manual compression closure of femoral access sites. She was started on atorvastatin and aspirin 325 mg with plan to continue until 08/11, then transition to oral anticoagulation. She was stable for transfer to the floor. Her SMART consult was completed while in the NNICU and she has been recommended for IPR by PT and OT. She has not passed her speech eval before she was transferred to the neurology floor on 08/07. Interval Events: - NAEO. Ordered Ramelteon for sleep and she slept well. - Patient report to be feeling better, gaining more mobility in her RUE Plan today: - WOOD FINISHER APPRENTICE to re-eval patient. Plan for MBS this afternoon. HISTORY Past Medical History: Past Medical History: Diagnosis Date Adiposity obesity [...] infarction (CMS/HCC) (HCC) 2014 Sleep apnea Vertigo Surgical History: Past Surgical History: Procedure Laterality Date ABDOMINAL SURGERY CARDIAC PACEMAKER PLACEMENT CATARACT EXTRACTION W/ INTRAOCULAR LENS IMPLANT Bilateral CHOLECYSTECTOMY 1981 Cholecystectomy EYE SURGERY OTHER SURGICAL HISTORY Right 1980 partial oopherectomy OTHER SURGICAL HISTORY heart cath with stent 2013 [place]/[facility] OTHER SURGICAL HISTORY 2016 a.fib: loop recorder implanted OTHER SURGICAL HISTORY 2016 Atrial Fibrillation: Cardiovascular Intervention (ablation) SKIN BIOPSY Family History: family history includes Breast cancer in her child; COPD in her father; Cancer in her brother; Dementia in her father and mother; Depression in her brother, father, and mother; Hypertension in her brother; Other in her mother and sister; Other (age of onset: 75) in her sister. Social History: reports that she quit smoking about 48 years ago. Her smoking use included cigarettes. She has never used smokeless tobacco. She reports that she does not use drugs. No alcohol history on file. Social History Social History Narrative Agrees to blood/blood products: Y Agrees to blood/blood products: Y Allergies: Allergies Allergen Reactions Phenobarbital Hallucinations Codeine Rash, [...] (See comments) severe heart pain Diltiazem Itching MEDICATIONS Home Medications: Current Facility-Administered Medications: acetaminophen (TYLENOL) 32 mg/mL oral liquid 650 mg, 650 mg, feeding tube, Q4H PRN, Alice Yoo NP,650 mg at 08/07/22 0628 aspirin tablet 325 mg, 325 mg, feeding tube, Daily, Citlaly Freire NP, 325 mg at 08/07/22 0908 Carrier Fluids for Secondary Infusion - 0.9% Sodium Chloride, 30 mL, intravenous, PRN, Alice Yoo NP, 30 mL at 08/03/22 235 enoxaparin (LOVENOX) syringe 40 mg, 40 mg, subcutaneous, Daily-2100, Citlaly Freire NP, 40 mg at 08/07/222024 furosemide (LASIX) tablet 40 mg, 40 mg, feeding tube, BID DIURETIC, Junior Baugh MD PhD, 40 mg at 08/07/22 171 ibuprofen (ADVIL,MOTRIN) tablet/capsule 600 mg, 600 mg, feeding tube, Once, Jojo Henry MD losartan (COZAAR) tablet 12.5 mg, 12.5 mg, oral, Daily, Junior Baugh MD PhD, 12.5 mg at 08/07/22 09 metoprolol tartrate immediate release capsule 6.25 mg, 6.25 mg, feeding tube, BID, Mannie Valencia MD, 6.25 mg at 08/07/222024 ondansetron (ZOFRAN) injection 4 mg, 4 mg, intravenous, Q6H PRN, Alice Yoo NP, 4 mg at 08/07/221936 ramelteon (ROZEREM) tablet 8 mg, 8 mg, oral, Nightly, Capri Curran MD, 8 mg at 08/07/222024 rosuvastatin (CRESTOR) tablet 10 mg, 10 mg, oral, Nightly, Mannie Valencia MD, 10 mg at 08/07/222024 Scheduled Medications: aspirin, 325 mg, feeding tube, Daily enoxaparin, 40 mg, subcutaneous, Daily-2100 furosemide, 40 mg, feeding tube, BID DIURETIC ibuprofen, 600 mg, feeding tube, Once losartan, 12.5 mg, oral, Daily metoprolol tartrate, 6.25 mg, feeding tube, BID ramelteon, 8 mg, oral, Nightly rosuvastatin, 10 mg, oral, Nightly Continuous Medications: PRN Medications: acetaminophen sodium chloride 0.9% ondansetron Objective Vitals: Arrival Vitals Temp 08/03/22 1551 36.3 ??C (97.4 ??F) Pulse 08/03/22 1549 82 Resp 08/03/22 1549 22 BP 08/03/22 1549 98/68 SpO2 08/03/22 1551 94 % Temp src 08/03/22 1551 Axillary Heart Rate Source 08/03/221914 Monitor Patient Position 08/04/22 1000 HOB 30 degrees BP Location 08/04/22 0100 Right arm FiO2 (%) 08/03/221914 30 % Most Recent : Vitals: 08/07/22 2209 BP: 114/50 Pulse: 70 Resp: 16 Temp: 36.3 ??C (97.3 ??F) SpO2: 98% I/O: Intake/Output Summary (Last 24 hours) at 08/08/2022 0832 Last data filed at 08/07/20222009 Gross per 24 hour Intake 830 ml Output 1800 ml Net -970 ml Physical exam: General: No acute distress. HEENT: Sclera anicteric. Mucous membranes moist. Normal oropharynx. NGT in place. Neck: Neck supple. Cardiac: Regular rate and rhythm on monitor. Pulmonary: Breathing comfortably on room air. Abdomen: Soft, nontender, nondistended. Extremities: No pedal edema. Warm and well-perfused. No cyanosis or clubbing. Skin: No visible rashes or lesions. Psychiatric: Full, appropriate, mood-congruent affect. Neurologic: Mental status: Alert. Oriented to person, place, time, and situation by choice Language: Speaks in appropriate one word phrases. Follows one step central and peripheral commands,unable to repeat, names hand , cannot name knuckles . Cranial nerves: PERRL, left gaze preference but crosses midline, visual krause full to finger wiggling, sensation intact to light touch in V1-V3 distributions, right facial droop, hearing intact to conversation, palate elevates symmetrically, mild dysarthria. Motor: R UE antigravity. LUE 5/5 throughout. R LE briefly antigravity, LLE 5/5 throughout. Sensory: reports decreased sensation to light touch on right without extinction Coordination: Teuiuy-hjdy-anezbu on left ataxia. Reflexes: deferred Gait: deferred NIHSS: Interval: Transfer (done with Jaime) Level of Consciousness (1a.): 0 LOC Questions (1b.): 1 LOC Commands (1c.): 0 Best Gaze (2.): 0 Visual (3.): 0 Facial Palsy (4.): 1 Motor Arm, Left (5a.): 0 Motor Arm, Right (5b.): 3 Motor Leg, Left (6a.): 0 Motor Leg, Right (6b.): 1 Limb Ataxia (7.): 0 Sensory (8.): 1 Best Language (9.): 1 Dysarthria (10.): 1 Extinction and Inattention (11.) (Formerly Neglect): 1 Total: 10 Lab/Radiology/Diagnostic Review: Recent Labs Lab Units 08/07/221954 WBC K/cumm 11.7* HEMOGLOBIN g/dL 12.8 HEMATOCRIT % 38.4 PLATELETS K/cumm 238 Recent Labs Lab Units 08/03/221956 APTT sec 27 INR 1.3* Recent Labs Lab Units 08/07/22195408/04/22210908/03/22 2100 SODIUM mmol/L 141 < > 141 POTASSIUM PLASMA mmol/L 3.8 < > 4.2 CHLORIDE mmol/L 99 < > 109 CO2 mmol/L 32 < > 23 ANIONGAP mmol/L 10 < > 9 GLUCOSE mg/dL 153 < > 146 BUN SERUM mg/dL 16 < > 11 CREATININE mg/dL 0.62 < > 0.69 CALCIUM mg/dL 9.4 < > 7.9* ALBUMIN g/dL -- -- 3.4* ALK PHOS Units/L -- -- 35* ALT Units/L -- -- 13 AST Units/L -- -- 26 BILIRUBIN TOTAL mg/dL -- -- 0.5 < > = values in this interval not displayed. Recent Labs Lab Units 08/07/221954 MAGNESIUM mg/dL 2.1 Recent Labs Lab Units 08/03/221956 HEMOGLOBIN A1C % 6.0* Recent Labs Lab Units 08/03/221956 CHOLESTEROL mg/dL 146 TRIGLYCERIDES mg/dL 77 HDL mg/dL 33* Neuro Imaging XR Abdomen Ap 1 Vw Result Date: [...] unchanged. Electronically signed by: Cy Hawley M.D. IR Percutaneous Arterial Thrombectomy, Intracranial Final Result 1. Left middle cerebral artery occlusion, TICI 0 2. Successful mechanical thrombectomy with TICI 2B reperfusion of the left middle cerebral artery Electronically signed by: Kamlesh Steele M.D. Other Relevant Diagnostics: TTE w/Doppler [facility] #: 0 Date of : 1940 (F) Grain Trader: Luna Canchola RDCS Referring Physician: ANAMIKA NAZARIO MD Contrast Agent: 0.8 ml Optison Administered, (2.2 ml wasted). Contrast Administered by: FUR DRESSER Supervised/Interpreted by: Jaleel Banegas MD Diagnosis: Acute stroke Location: [facility] Reason for test: acute stroke, r/o lv thrombus, h/o hf MV Structure: Normal, MV Motion: Normal, Mitral Annulus: Normal AV Structure: tricuspid and is Normal, AV Motion: Normal Aotic root: Normal, TM: Normal, PV: Normal Valvular Vegetations: none seen, Mass/Thrombi: none seen RA: Normal Measurements: M-Mode Normal Aotic Root: <3.8 LA: <3.8 RV: <2.8 LV(ED): <5.7 LV(ES): Variable 2D Linear Normal Aotic Root: 2.8 cm <3.6 Ao Indexed: 1.6 cm/M2 <2.0 LA: <3.8 RV: 2.7 cm <4.2 LV(ED): 4.6 cm <5.3 LV(ES): 4.2 cm <3.5 2D Vol. Normal Indexed Indexed Normal RA: 41.0 ml 24.0 ml/M2 9-33 LA: 51.0 ml 29.8 ml/M2 16-34 RV: <11.6 LV(ED): 120.0 ml 46-106 70.2 ml/M2 <62 LV(ES): 99.0 ml 14-42 57.9 ml/M2 <25 3D Vol. Indexed Normal LV(ED): <62 LV(ES): <24 LV EF: 20 % (Mod. Parker's) (Normal: >=54%) LV Septum: 1.1 cm (Normal: <0.9 cm) Wall Motion Scoring (1=Normal 2=Hypo 3=Akinetic 4=Dyskin./Aneurysm 0=Not visualized) Parasternal Long [place]:MAS=2 BAS=2 MIL=2 SHAYAN=2 Parasternal Short [place]:MAS=2 MIS=2 AR=2 MIL=2 MAL=2 MA=2 Apical 4 Chambers:=2 MIS=2 BIS=2 BAL=2 MAL=2 AL=2 AC=2 Apical 2 Chambers:AI=2 AR=2 BI=2 BA=2 MA=2 AA=2 AC=2 LV Global Longitudinal Strain: RV Global Longitudinal Strain: LV Function: Severe Global reduction in LV Ejection Fraction (EF<30%); EF via modified Parker's. (NOTE: If patient has irreversible LV Cardiac Dysfunction with EF<30%, they are at risk for Sudden Cardiac .) RV Function: mild global hypokinesis Septal Motion: Normal Pericardial Effusion: none seen Atrial Septum: Normal DOPPLER/COLOR FLOW DOPPLER RESULTS: Diastolic Function: indeterminate Tricuspid Valve: mild TV regurgitation Pulmonic Valve: normal PV AV Regurgitation: No AR seen AV Stenosis: no AV Area: cm2 AV Pressure Gradient (mmHg): Mean: 0, Peak:0 MV Regurgitation: Mild MR MV Stenosis: no MS MV Area: cm2 MV Pressure Gradient (mmHg): Mean: 0 MV ERO: cm Regurg. Vol.: ml/beat Regurg. Frac.: % PA Pressure: 45 mmHg DOPPLER/COLOR FOLOW DOPPLER COMMENTS: No AR seen, Mild MR, no , no MS, mild TV regurgitation, normal PV. Diastolic function: indeterminate CONTRAST: 0.8 ml Optison Administered, (2.2 ml wasted). SUMMARY: Frequent PVCs. Normal LV volume, mass. Severe global LV systolic dysfunction (LVEF 20%). Dyssynchronous LV contraction c/w RV pacing. Indeterminate diastolic function. Normal AV. Mild MR. Normal LA size. Normal RV size with mild hypokinesis. Mild TR. PASP 45 mmHg. Dilated IVC c/w elevated RAP. Wire in RA/RV. Abdominal aortic atherosclerosis. No definite LV thrombus. No images for comparison. Confirmed on 08/05/2022 - 11:34:56 by Jaleel Banegas MD I have reviewed the above imaging/diagnostic results and discussed with my attending. Assessment and Plan Ms. Giron is a 82 y.o. right handed woman with past medical history of CAD, AR, SSS s/p Biotronikpacemaker, Atrial fibrillation (previously on Eliquis but not currently, s/p AV node ablation 2018), HLD, HTN, CHF who initially presented with acute right sided hemiparesis, right facial weakness, and became mute. She was found to have an acute L MCA occlusion s/p TNK and MT with TICI 2B, 1 pass aspiration. Impression/Etiology: Ms. Giron presents with right hemiparasis and global aphasia that localizes to the Left MCA territory. Etiologies highest on the differential for consideration per TOAST criteria include: [id number] embolism or cardioembolism. Cardioembolism is most likely as she has a pacemaker in her right ventricle causing dyssynchornous squeeze of her left ventricle which could lead to clot formation,though no definitive thrombi were seen on TTE. She was also found to have 80% stenosis of her left ICA therefore artery to artery embolism is also possible. The patient will benefit from amelioration of stroke risk factors and optimization of stroke secondary prevention. The patient will be started on Aspirin 325mg Daily and The patient will also benefitfrom a high-intensity statin.. # acute left MCA stroke s/p TNK and mechanical thrombectomy TICI 2B Etiology: cardioembolic vs artery to artery embolism Risk Factors: Age > 55, hypertension, dyslipidemia, atrial fibrillation, and carotid artery stenosis Work up: - LDL 68, a1C 6.0 - EKG V paced 68 - HCT hyperdense L MCA, no hemorrhage - CTA L M1 cutoff; proximal L ICA stenosis estimated 80%, R ICA stenosis 50% - Angiogram with left carotid stenosis 50% - TTE EF 20%, dyssynchronous LV contraction 2/2 RV pacing, no definite thrombus - Loop on discharge: No Secondary Prevention: - ASA 325mg - Atorvastatin 40mg Daily, consider rosuvastatin or lower dose atorvastatin given age Blood Pressure: - Stroke BP Goal: Normotension <140/90 Risk Factor/Etiology Work-up: - Monitor on telemetry Consults: SMART (Flue Lining Dipper, PT/OT, WOOD FINISHER APPRENTICE, Spiritual Care) #Hypotension Blood pressure in the field was 68/31, 90/45 at [place]. Initially responded to fluid boluses. Noted to have chronic left subclavian occlusion on CT CAP 08/03 and severe femoral stenosis on angiogram. Wide pulse pressure noted on her A line while in NNICU suggests arteriosclerosis. #Hyperlipidemia LDL on admission was 68. Goal LDL for secondary stroke prevention is <70. She has previously refused anti-lipid medication reporting feeling unwell on medicaiton and with muscle pain without weakness. # CAD s/p AR with stent placement (2013) # HFrEF (LVEF 20%, was LVEF 40% in 2019) She follows with Dr. Hernandez [facility] Cardiology - last seen 07/18/22 in office. Home regimen: Furosemide 20mg daily, Spironolactone 25mg daily, Entresto 24-26 mg BID ((not being filled). Her last TTE documented 12/2019: mild global LV hypokinesis with EF 40% which is further reduced this admission. She will likely benefit from initiation and optimization of GDMT but will need to be weight against patient preference and family wishes. -- 08/06 TTE Frequent PVCs. Normal LV volume, mass. Severe global LV systolic dysfunction (LVEF 20%). Dyssynchronous LV contraction c/w RV pacing. Indeterminate diastolic function. Normal AV. Mild MR. Normal LA size. Normal RV size with mild hypokinesis. Mild TR. PASP 45 mmHg. Dilated IVC c/w elevated RAP.. No definite LV thrombus. - Consulted Cardiology: cont metop 6.25 BID, losartan 25 daily, Lasix 40 daily, start spironolactone 12.5 daily. Start Farxiga 10 daily on discharge # Chronic atrial Fibrillation s/p AV node ablation (01/06/2019) # SSS s/p pacemaker - Has Biotronik pacemaker placed 07/2018 mode DDD with rate set at 70 BPM - Last interrogated 07/02/2022: 60% battery life remaining, demonstrated ???100% Afib burden?? - Rate controlled without medications and V-paced - Per prior family reports, was prescribed Eliquis 5 mg BID and taking intermittently, however her pharmacy ([facility]) indicates she does not fill this medication and her daughter indicates she does not fill at other pharmacies - Telemetry - K > 4, Mg > 2 # Troponemia, resolved - Trop I hs peaked at 230 (105-->140-->230-->225) - no further trend - Likely secondary to demand ischemia in context of acute stroke, intubation however does have CAD with history of stent - Follow-up TTE to evaluate for wall motion abnormalities - Monitor on telemetry - likely 2/2 demand ischemia # Anemia, stable - H/H on admission 13/40.3 (08/03) with subsequent drop to 9.6 appearing spurious and suspect drawn from IV (as BMP at that time with hyperNa and hypoK that resolved upon recheck) with repeat 11.5 - Hgb stable now ~11 - Monitor Hgb in CBC daily - Maintain Hgb > 7 g/dL # Several bilateral femoral artery stenosis, incidental finding # Left subclavian occlusion, incidental finding - Subclavian finding noted on CTA - Femoral stenosis seen in diagnostic angiogram - can follow up outpatient with PCP or vascular # Oliguria, improving - Grossly stable renal function, suspect may have component of diuresis dependency given outpatientlasix use - Monitor UOP closely - Monitor renal function in BMP daily # Hx of Anxiety - In past had Rx for alprazolam and reportedly took it rarely, this is not an active medication andnot filled at pharmacy - Monitor clinically, avoid adding new medications that could confound neurologic exam # Nutrition - currently with NGT receiving jevity 1.5 45/hr with H20 60 mL q4h - continue WOOD FINISHER APPRENTICE evaluation ([facility] [place] today at 1430) Disposition: Inpatient Rehab Code Status: LIMITED - No CPR Diet: TF through NGT DVT Prophylaxis: Lovenox Lines/Tubes: Peripheral IV 08/03/22 18 G Anterior;Right Hand (Active) Number of days: 2 Peripheral IV 08/03/22 18 G Left Hand (Active) Number of days: 2 Urethral Catheter Non-latex;Temperature probe (Active) Number of days: 2 NG/OG Tube Nasogastric 12 Fr Right nostril (Active) Number of days: 1 Capri Curran MD Neurology Resident Physician, PGY-3 [facility] Stroke Neurology [phone] Cosigned by Adryan Bailon MD at 08/08/2022 12:45 PM CDT Associated attestation - Adryan Bailon MD - 08/08/2022 12:45 PM CDT I have seen and examined the patient on 08/08/22. I agree with the findings and plan of care as documented in the resident's/fellow's note. My total encounter time on 08/08/22 was 15 minutes which was spent in the activities documented in the note. This includes time spent prior to the visit and after the visit in direct care of the patient. This time does not include time spent in any separatelyreportable services. * Sarah Burr, WOOD FINISHER APPRENTICE - 08/07/2022 4:19 PM CDT Speech Language/Pathology [facility] Speech Pathology: Bedside Western Aphasia Battery-Revised (BWAB) The Bedside Western Aphasia Battery-Revised was used as a tool to evaluate the patient's language function. This assessment evaluates spontaneous speech content and fluency, auditory verbal comprehension, repetition, object naming, reading and writing. BWAB Bedside Aphasia Score Spontaneous Speech: Content Score (out of 10): 5 Spontaneous Speech: Fluency Score (out of 10): Agrammatic, effortful, verb-noun phrases, but only one or two propositional sentences Auditory Verbal Comprehension: Yes/No Questions (out of 10): 10 Sequential Commands: 4 Repetition Score (out of 10): 7 Object Naming Score (out of 10): 10 Bedside Aphasia Score: 66.67 Aphasia Quotient Scores: 0-25: Very Severe 25-50: Severe 51-75 Moderate 76 and above-mild Clinical Impression: Pt seen for language evaluation, Pt family members present at bedside. Pt oriented to self, place, situation, stated the year as 2003. Pt demonstrated errors during the expressive language repetition portion of LAST warranting BWAB evaluation. Pt demonstrated skills in the areas of naming, yes/no questions, following commands, repetition of simple phrases. Demonstrated deficits in the areas of fluency, speech observed to be effortful. Pt demonstrating rapid and irregular/imprecise DDKs, frequent inaccurate articulations throughout conversation, observed groping in conversation. Pt using hand and fingers to maneuver lips and tongue during speech when frustrated with mis-articulations. Mis-articulations including distorted sounds and sound substitution. WOOD FINISHER APPRENTICE provided letter board and x2 communication boards to facilitate fewer communication breakdowns. 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 Please reference the evaluation flowsheet linked to this start time for further details. DischargeSummary Statement If this is the last swallow therapy visit, this serves as the discharge summary. * Kraig Louie OT - 08/07/2022 11:43 AM CDT Occupational Therapy Progress Note NOTE: This is a summary note of the cisse components of the treatment session. For full details, review chart for all flowsheets documented on by this occupational therapy clinician on this date. Vitalsigns documented in vital signs flowsheet. Care plan progress documented in Care Plan Activity. For questions, please review the treatment team and contact the occupational therapist currently assigned to this patient. If an occupational therapist is not assigned to this patient, please call [phone]. 08/07/22 1143 General Session Type Treatment OT Received On 08/07/22 Safe Environment Arm band checked;Patient found sitting in chair;Gait belt utilized for all out of bed mobility Subjective Agreeable to Therapy Family/Caregiver Present Yes (Multiple family members) Current Functional Status OT Functional Mobility Functional mobility observed with hand hold with Mod A for balance Precautions Precautions Fall risk Weight Bearing Restrictions No Pain Assessment Pain Assessment 0-10 Pain Score 2 Pain Type Acute pain Pain Location Abdomen Pain Orientation Generalized Pain Interventions Repositioned Balance Balance Yes Static Sitting Balance Static Sitting-Balance Support Unilateral upper extremity supported;Feet supported Static Sitting-Sitting Surface Chair Static Sitting-Level of Assistance Contact guard Static Sitting-Comment/# of Minutes Ensure safety and balance Dynamic Sitting Balance Dynamic Sitting-Balance Support Unilateral upper extremity supported;Feet supported Dynamic Sitting-Balance Lateral lean;Forward lean;Reaching for objects Dynamic Sitting-Sitting Surface Chair Dynamic Sitting-Level of Assistance Minimum assistance Static Standing Balance Static Standing-Balance Support Left upper extremity supported (on therapist) Static Standing-Standing Surface Floor Static Standing-Level of Assistance Minimum assistance Dynamic Standing Balance Dynamic Standing-Balance Support Unilateral upper extremity supported Dynamic Standing-Balance Lateral lean;Forward lean;Reaching for objects Dynamic Standing-Standing Surface Floor Dynamic Standing-Level of Assistance Moderate assistance ADL ADLS (WDL) X Grooming Grooming: Where assessed Other (Comment) (Standing at tray table) Grooming: Level of assistance Moderate Assist (Mod balance, Min task) Grooming: Assistance with Manipulation of containers;Reaching all areas of head/face;Safety;Sequencing (balance) LE Dressing LE Dressing: Where assessed Sitting;Chair LE Dressing: Level of assistance Maximum Assist LE Dressing: Assistance with Don/doff R sock;Don/doff L sock;Thread RLE into pants;Thread LLE into pants;Pull up over hips;Fasteners;Safety;Sequencing (balance) Bed Mobility Bed Mobility No (NT 2/2 patient found in chair and left in chair at end of session) Transfers Transfer Yes Transfer 1 Transfer From 1 Sit Transfer Type 1 To and from Transfer to 1 Stand Technique 1 Sit to stand;Stand to sit Transfer Device 1 Hand held assist Transfer Level of Assistance 1 Minimum Assist Trials/Comments 1 Force production and balance. 4 trials Toilet Transfers Toilet Transfers Comments NT 2/2 patient not needing to use the restroom Cognition Arousal/Alertness Alert;Appropriate responses to stimuli Attention Span Attends with cues to redirect Current communication Other (Expressive language impairment) Orientation Oriented X4 (person, place, time, situation) Following Commands Follows multistep commands with repetition Safety Judgment Decreased awareness of need for assistance Awareness of Errors Assistance required to identify errors made Insight Decreased awareness of deficits Problem Solving Assistance required to identify errors made Compliance/Behavior Easy to engage Perseveration Not present Other Comments Comments Patient is highly motivated to get back to her baseline. Patients family is very supportive. Daily Activity - 6 Clicks Putting on and taking off regular lower body clothing 2 Bathing 2 Toileting 2 Putting on and taking off upper body clothing 2 Personal Grooming 2 Eating Meals 2 Total Score (range 6-24) 12 Score Interpretation 30.60 Safe Environment End of Therapy Session Safe Environment End of Therapy Session Patient left in recliner;Chair alarm in place and activated;Call light within reach;Overbed table within reach Assessment Problem List Decreased upper extremity range of motion;Decreased upper extremity strength;Decreasedsafe judgment during ADL;Decreased endurance;Decreased balance;Decreased fine motor control;Decreased functional mobility;Decreased ADL independence;Decreased IADL independence;Decreased UE function;Decreased ROM Barriers to Discharge Current Mobility Status;Decreased safety awareness Barrier Comments Fall risk Plan Plan Continue with current plan;If this is the last note, consider this the discharge summary Recommendation/Plan OT Recommendation Inpatient Rehab Facility Patient at high risk for Falls;Readmission;Injury due to decreased ability to care for self;Injury due to reduced functional status;Injury due to balance deficits;Injury at home as patient has not returned to prior level of function Recommend Inpatient Rehab/Acute Rehab due to Ability to actively participate in intensive therapy 3hours/day, 5 days/week or 900 minutes per week;Highly motivated to participate in therapy;Not at baseline due to impaired ability to complete ADLs;Impaired ability to complete functional mobility;Likely to return to the community at discharge with support system in place;Requires greater than 25% physical assistance with most mobility tasks;Requires greater than 25% physical assistance with most ADL tasks;Requires multiple therapy disciplines to address functional deficits OT Frequency during current admission 3-5x/wk Treatment/Interventions during current admission ADL/IADL retraining;Balance Training;Bed mobility;Compensatory technique education;Endurance training;Functional activity;Functional mobility training;Functional transfer training;Positioning;Range of motion;Strengthening;Therapeutic activity;Therapeu tic exercise;Transfer training;Upper extremity motor function/functional skills Progress during current admission Progressing toward goals OT - Next Appointment 08/09/22 Multi-Disciplinary Problems (from Occupational Therapy) Active Problems Problem: Dressings Lower Extremities Start Date: 08/05/22 Goal Start Date Expected End Date End Date STG - Patient to complete lower body dressing with supervision. 08/05/22 08/12/22 -- Problem: Grooming Start Date: 08/05/22 Goal Start Date Expected End Date End Date STG - Patient will complete grooming tasks with supervision. 08/05/22 08/12/22 -- Problem: Transfers Start Date: 08/05/22 Goal Start Date Expected End Date End Date STG - Patient will perform toilet transfer with supervision. 08/05/22 08/12/22 -- Problem: OT Misc Start Date: 08/05/22 Goal Start Date Expected End Date End Date OT LTG - Patient will perform ADLs independently. 08/05/22 09/05/22 -- * Yovana Acuna PEER HEALTH PROMOTER - 08/07/2022 9:11 AM CDT Physical Therapy Progress Note NOTE: This is a summary note of the cisse components of the treatment session. For full details, review chart for all flowsheets documented on by this physical therapy clinician on this date. Vital signs documented in vital signs flowsheet. Care plan progress documented in Care Plan Activity. For questions, please review the treatment team and contact the PT or [facility] HE[employer] PROMOTER currently assigned to this patient. If a physical therapy clinician is not assigned to this patient, please call [phone]. 08/07/22 0911 PT Last Visit Session Type Treatment PT Received On 08/07/22 Safe Environment Arm band checked;Patient found in supine;Gait belt utilized for all out of bed mobility Subjective Agreeable to Therapy Family/Caregiver Present Yes (daughter) Precautions Precautions Fall risk Pain Assessment Pain Assessment 0-10 Pain Score 3 Pain Location Abdomen Pain Interventions Repositioned;RN Notified (RN Citlaly) Cognition Orientation Oriented to person;Oriented to place;Oriented to situation Following Commands Follows one step commands without difficulty Bed Mobility 1 Bed Mobility From 1 Supine Bed Mobility Type 1 To Bed Mobility to 1 Edge of bed Level of Assistance 1 Minimum Assist Bed Mobility Comments 1 assist for trunk elevation and manuevering bilateral LE's Transfer 1 Transfer From 1 Sit Transfer Type 1 To and from Transfer to 1 Stand Technique 1 Sit to stand;Stand to sit Transfer Device 1 Hand held assist Transfer Level of Assistance 1 Minimum Assist Trials/Comments 1 sit to stand x 2 reps. assist for force production and balance Transfers 2 Transfer From 2 Bed Transfer Type 2 To Transfer to 2 Chair with arms Technique 2 Stand and step Transfer Device 2 Hand held assist Transfer Level of Assistance 2 Minimum Assist Trials/Comments 2 assist for force production, weight shifting Ambulation 1 Distance (ft) 1 30 Surface 1 Level tile Device 1 Hand held assist (bilateral) Assistance 1 Minimum Assist Gait: Requires assist with 1 Maintaining balance;Weight shifting Gait: Requires verbal cues to 1 Improve upright posture;Increase step length;Increase base of support Gait Deviations 1 Base of support - decreased;Kimberly - decreased;Step length - decreased;Weight shift - decreased Basic Mobility - 6 Click How much difficulty does the patient have: Turning over in bed 3 How much difficulty does the patient currently have: Sitting down and standing up from a chair witharms? 3 How much difficulty does the patient have: Moving from lying on back to sitting on the side of the bed? 3 How much difficulty does the patient have: Moving to and from a bed to a chair including wheelchair? 3 How much help does the patient currently need: Walk in hospital room? 2 How much help from another person does the patient currently need: Climbing 3-5 steps with a railing? 1 Total 6 Click Score (range 6-24) 15 Score Interpretation 36.97 Safe Environment End of Therapy Session Safe Environment End of Therapy Session Patient left in recliner;Chair alarm in place and activated;RN notified;Call light within reach;Overbed table within reach Plan Plan Continue with current plan Recommendation/Plan PT Recommendation/Plan (S) Inpatient Rehab Facility (per PT) Patient at high risk for Falls;Readmission;Injury due to reduced functional status;Injury due to impaired cognition;Injury due to balance deficits;Injury at home as patient has not returned to prior level of function;Developing impaired skin integrity (per PT) Recommend Inpatient Rehab/Acute Rehab due to Ability to actively participate in intensive therapy 3hours/day, 5 days/week or 900 minutes per week;Highly motivated to participate in therapy;Likely toreturn to the community at discharge with support system in place;Requires greater than 25% physical assistance with most mobility tasks;Requires multiple therapy disciplines to address functional deficits;Patient and caregiver require specialized skilled training due to new level of function/diagnosis;Requires skilled therapy interventions to address neurological deficits (per PT) PT Frequency during current admission 3-5x/wk (per PT) Progress during current admission Progressing toward goals PT - Next Appointment 08/08/22 Multi-Disciplinary Problems (from Physical Therapy) Active Problems Problem: Mobility Start Date: 08/05/22 Goal Start Date Expected End Date End Date LTG - Patient will demonstrate functional mobility with the following level of assist: mod I 08/05/22 09/16/22 -- Goal Start Date Expected End Date End Date STG - Patient will ambulate 50 feet with LRD, min assist 08/05/22 08/19/22 -- Problem: Transfers Start Date: 08/05/22 Goal Start Date Expected End Date End Date STG - Transfer from bed to chair with supervision 08/05/22 08/19/22 -- Goal Start Date Expected End Date End Date STG - Patient to transfer to and from sit to supine with supervision 08/05/22 08/19/22 -- Goal Start Date Expected End Date End Date STG - Patient will transfer sit to and from stand with supervision 08/05/22 08/19/22 -- * Jojo Henry MD - 08/07/2022 12:37 AM CDT Stroke History and Physical Patient Name: Abena Giron Date of / Age: 1 1940 / 82 y.o. Gender: female Date of Service: 08/07/2022 [facility] PCP: Jaleel Mcgovern MD Neurologist SUBJECTIVE CHIEF COMPLAINT: right sided hemiparesis, right facial weakness, global aphasia HISTORY OF PRESENT ILLNESS Abena Giron is a 82 y.o. woman with a past medical history of CAD, AR, SSS s/p Biotronik pacemaker, Atrial fibrillation (previously on Eliquis but not currently, s/p AV node ablation 2018), HLD, HTN, CHF who initially presented with acute right sided hemiparesis, right facial weakness, and became mute. She was found to have an acute L MCA occlusion s/p TNK and MT with TICI 2B, 1 pass aspiration. Hx obtained via chart review as patient has global aphasia. Patient was LKN at 1305 08/03. She was having lunch with family members when acutely she developed right sided weakness and stopped speaking. At the scene, BP 68/31. She initially presented to [facility]. BP 98/68, BG 137, HR 68 paced. Initial NIHSS 23 ((2 Questions, 2 Commands, 2 Gaze, 2 FD, 4 RUE, 4 RLE, 3 aphasia, 2 dysarthria, 2 extinction). Neurologic exam on presentation to [facility] significant for nonverbal, not following commands, moderate right facial we akness, unable to gaze to the right, right arm and right leg flaccid. HCT showed hyperdense L MCA, no hemorrhage. CTA demonstrated left M1 cutoff; L cervical ICA with significan stenosis. . She received TNK at 1428 08/03 and was transferred to [facility] for thrombectomy evaluation. On arrival to [facility] ED, NIHSS 16 (2 Questions, 2 commands, 2 gaze, ELIZABET FD, 2 RUE, 3 RLE, 3 aphasia, 2dysarthria; improvements from prior: facial palsy improved, R arm had some effort, no extinction). She had repeat labs checked which noted Hgb reduced at 9.6 (from 13.0) but other labs were abnormal including electrolyte abnormalities and reduced PLT. Given low HgB after TNK the patient had crowder-body imaging including CT Head and CTA C/A/P without acute findings; noted to have chronic L subclavianocclusion which proximal reconstitution. The patient was then taken to MT with attempted RIGHT femoral access (unsuccessful) followed by LEFT femoral access (successful). She was a TICI2B reperfusion. Intra-op, she was an easy airway and received 400 cc crystalloids, 4 mg zofran, propofol, and alysa-synephrine. EBL 50 ml. She arrived to the [facility] intubated and was able to be extubated the following morning 08/04. ICU course significant for ventilator-associated agitation s/p precedex 08/03-08/04. She only remained intubated to facilitate lying flat following manual compression closure of femoral access sites. She was started on atorvastatin and aspirin 325 mg with plan to continue until 08/11, then transition to oral anticoagulation. She was stable for transfer to the floor. Her SMART consult was completed while in the NNICU and she has been recommended for IPR by PT and OT. At baseline, patient is independent in ADLs/IADLs (does not need assistance with eating or getting dressed), ambulates without assistance, and has no baseline Neurologic deficits. Her significant comorbidities include afib s/p ablation, CAD, hld, htn. She had Biotronik pacemaker placed 07/2018 modeDDD with rate set at 70 BPM, last interrogated 07/02/2022: 60% battery life remaining, demonstrated???100% Afib burden?? The patient's pharmacy was contacted by ICU and indicated that she has never received Eliquis nor Entresto at their pharmacy (filling there since 2021) and her family denies the possibility that she fills elsewhere, admitting also that she historically has not wished to take certain medications either due to perceived side effects or concerns for side effects she has issues with fillers . Upon arrival to the floor, BP 149/61. NIHSS 9 (missed month, right facial droop, flaccid RUE, driftRLE, sensory loss on right without extinction, dysarthria). She denies that she is in any pain and says she is hungry . She speaks in one word phrases and follows all commands, full exam below. Family Contact: Extended Emergency Contact Information Primary Emergency Contact: Mari Jara [facility] Mobile Relation: Daughter Secondary Emergency Contact: Nadia Busby Mobile Relation: Daughter Review of Systems: A complete review of symptoms was performed. All symptoms negative except as per HPI. HISTORY Past Medical History: Past Medical History: Diagnosis Date Adiposity obesity [...] infarction (CMS/HCC) (HCC) 2015 Sleep apnea Vertigo Surgical History: Past Surgical History: Procedure Laterality Date ABDOMINAL SURGERY CARDIAC PACEMAKER PLACEMENT CATARACT EXTRACTION W/ INTRAOCULAR LENS IMPLANT Bilateral CHOLECYSTECTOMY 1981 Cholecystectomy EYE SURGERY OTHER SURGICAL HISTORY Right 1980 partial oopherectomy OTHER SURGICAL HISTORY heart cath with stent 2013 [place]/[facility] OTHER SURGICAL HISTORY 2016 a.fib: loop recorder implanted OTHER SURGICAL HISTORY 2016 Atrial Fibrillation: Cardiovascular Intervention (ablation) SKIN BIOPSY Family History: family history includes Breast cancer in her child; COPD in her father; Cancer in her brother; Dementia in her father and mother; Depression in her brother, father, and mother; Hypertension in her brother; Other in her mother and sister; Other (age of onset: 75) in her sister. Social History: reports that she quit smoking about 48 years ago. Her smoking use included cigarettes. She has never used smokeless tobacco. She reports that she does not use drugs. No alcohol history on file. Social History Social History Narrative Agrees to blood/blood products: Y Agrees to blood/blood products: Y Allergies: Allergies Allergen Reactions Phenobarbital Hallucinations Codeine Rash, [...] (See comments) severe heart pain Diltiazem Itching MEDICATIONS Home Medications: Current Facility-Administered Medications: acetaminophen (TYLENOL) 32 mg/mL oral liquid 650 mg, 650 mg, feeding tube, Q4H PRN, Alice Yoo NP,650 mg at 08/07/22 0628 aspirin tablet 325 mg, 325 mg, feeding tube, Daily, Citlaly Freire NP, 325 mg at 08/06/22 0844 Carrier Fluids for Secondary Infusion - 0.9% Sodium Chloride, 30 mL, intravenous, PRN, Alice Yoo NP, 30 mL at 08/03/22 9941 enoxaparin (LOVENOX) syringe 40 mg, 40 mg, subcutaneous, Daily-2100, Citlaly Freire NP, 40 mg at 08/06/22 2019 furosemide (LASIX) tablet 40 mg, 40 mg, feeding tube, BID DIURETIC, Junior Baugh MD PhD, 40 mg at 08/06/22 1820 losartan (COZAAR) tablet 12.5 mg, 12.5 mg, oral, Daily, Junior Baugh MD PhD, 12.5 mg at 08/06/22 1530 metoprolol tartrate immediate release capsule 6.25 mg, 6.25 mg, feeding tube, BID, Mannie Valencia MD ondansetron (ZOFRAN) injection 4 mg, 4 mg, intravenous, Q6H PRN, Alice Yoo NP, 4 mg at 08/04/22 1722 rosuvastatin (CRESTOR) tablet 10 mg, 10 mg, oral, Nightly, Mannie Valencia MD Scheduled Medications: aspirin, 325 mg, feeding tube, Daily enoxaparin, 40 mg, subcutaneous, Daily-2099 furosemide, 40 mg, feeding tube, BID DIURETIC losartan, 12.5 mg, oral, Daily metoprolol tartrate, 6.25 mg, feeding tube, BID rosuvastatin, 10 mg, oral, Nightly Continuous Medications: PRN Medications: acetaminophen sodium chloride 0.9% ondansetron Objective Vitals: Arrival Vitals Temp 08/03/22 1551 36.3 ??C (97.4 ??F) Pulse 08/03/22 1549 82 Resp 08/03/22 1549 22 BP 08/03/22 1549 98/68 SpO2 08/03/22 1551 94 % Temp src 08/03/22 1551 Axillary Heart Rate Source 08/03/22 1915 Monitor Patient Position 08/04/22 1000 HOB 30 degrees BP Location 08/04/22 0100 Right arm FiO2 (%) 08/03/22 1915 30 % Most Recent : Vitals: 08/07/22 0718 BP: 155/63 Pulse: 69 Resp: 18 Temp: 36.9 ??C (98.4 ??F) SpO2: 97% I/O: Intake/Output Summary (Last 24 hours) at 08/07/2022 0911 Last data filed at 08/07/2022 0600 Gross per 24 hour Intake 1005 ml Output 2886 ml Net -1881 ml Physical exam: General: No acute distress. HEENT: Sclera anicteric. Mucous membranes moist. Normal oropharynx. NGT in place. Neck: Neck supple. Cardiac: Regular rate and rhythm on monitor. Pulmonary: Breathing comfortably on room air. Abdomen: Soft, nontender, nondistended. Extremities: No pedal edema. Warm and well-perfused. No cyanosis or clubbing. Skin: No visible rashes or lesions. Psychiatric: Full, appropriate, mood-congruent affect. Neurologic: Mental status: Alert. Oriented to person, place, time, and situation by choice Language: Speaks in appropriate one word phrases. Follows one step central and peripheral commands,unable to repeat, names hand , cannot name knuckles . Cranial nerves: PERRL, left gaze preference but crosses midline, visual krause full to finger wiggling, sensation intact to light touch in V1-V3 distributions, right facial droop, hearing intact to conversation, palate elevates symmetrically, mild dysarthria. Motor: no movement RUE. LUE 5/5 throughout. R LE briefly antigravity, LLE 5/5 throughout. Sensory: reports decreased sensation to light touch on right without extinction Coordination: Vkvldg-phtl-muxyht on left ataxia. Reflexes: deferred Gait: deferred NIHSS: Interval: Transfer (done with Jaime) Level of Consciousness (1a.): 0 LOC Questions (1b.): 1 LOC Commands (1c.): 0 Best Gaze (2.): 0 Visual (3.): 0 Facial Palsy (4.): 1 Motor Arm, Left (5a.): 0 Motor Arm, Right (5b.): 3 Motor Leg, Left (6a.): 0 Motor Leg, Right (6b.): 1 Limb Ataxia (7.): 0 Sensory (8.): 1 Best Language (9.): 1 Dysarthria (10.): 1 Extinction and Inattention (11.) (Formerly Neglect): 1 Total: 10 Lab/Radiology/Diagnostic Review: Recent Labs Lab Units 08/06/22 2349 WBC K/cumm 12.3* HEMOGLOBIN g/dL 11.1* HEMATOCRIT % 34.8* PLATELETS K/cumm 184 Recent Labs Lab Units 08/03/221956 APTT sec 27 INR 1.3* Recent Labs Lab Units 08/06/22 2349 08/04/22 2110 08/03/22 2100 SODIUM mmol/L 140 < > 141 POTASSIUM PLASMA mmol/L 4.0 < > 4.2 CHLORIDE mmol/L 103 < > 109 CO2 mmol/L 31 < > 23 ANIONGAP mmol/L 6 < > 9 GLUCOSE mg/dL 179 < > 146 BUN SERUM mg/dL 12 < > 11 CREATININE mg/dL 0.62 < > 0.69 CALCIUM mg/dL 8.8 < > 7.9* ALBUMIN g/dL -- -- 3.4* ALK PHOS Units/L -- -- 35* ALT Units/L -- -- 13 AST Units/L -- -- 26 BILIRUBIN TOTAL mg/dL -- -- 0.5 < > = values in this interval not displayed. Recent Labs Lab Units 08/06/222348 MAGNESIUM mg/dL 1.8 Recent Labs Lab Units 08/03/221956 HEMOGLOBIN A1C % 6.0* Recent Labs Lab Units 08/03/221956 CHOLESTEROL mg/dL 146 TRIGLYCERIDES mg/dL 77 HDL mg/dL 33* Neuro Imaging XR Abdomen Ap 1 Vw Result Date: [...] unchanged. Electronically signed by: Cy Hawley M.D. IR Percutaneous Arterial Thrombectomy, Intracranial Final Result 1. Left middle cerebral artery occlusion, TICI 0 2. Successful mechanical thrombectomy with TICI 2B reperfusion of the left middle cerebral artery Electronically signed by: Kamlesh Steele M.D. Other Relevant Diagnostics: TTE w/Doppler Hospital #: [id number] Date of : 1940 (F) Grain Trader: Luna Canchola [facility] [[email or web address]] Referring Physician: ANAMIKA NAZARIO MD Contrast Agent: 0.8 ml Optison Administered, (2.2 ml wasted). Contrast Administered by: FUR DRESSER Supervised/Interpreted by: Jaleel Banegas MD Diagnosis: Acute stroke Location: [facility] Reason for test: acute stroke, r/o lv thrombus, h/o hf MV Structure: Normal, MV Motion: Normal, Mitral Annulus: Normal AV Structure: tricuspid and is Normal, AV Motion: Normal Aotic root: Normal, TM: Normal, PV: Normal Valvular Vegetations: none seen, Mass/Thrombi: none seen RA: Normal Measurements: M-Mode Normal Aotic Root: <3.8 LA: <3.8 RV: <2.8 LV(ED): <5.7 LV(ES): Variable 2D Linear Normal Aotic Root: 2.8 cm <3.6 Ao Indexed: 1.6 cm/M2 <2.0 LA: <3.8 RV: 2.7 cm <4.2 LV(ED): 4.6 cm <5.3 LV(ES): 4.2 cm <3.5 2D Vol. Normal Indexed Indexed Normal RA: 41.0 ml 24.0 ml/M2 9-33 LA: 51.0 ml 29.8 ml/M2 16-34 RV: <11.6 LV(ED): 120.0 ml 46-106 70.2 ml/M2 <62 LV(ES): 99.0 ml 14-42 57.9 ml/M2 <25 3D Vol. Indexed Normal LV(ED): <62 LV(ES): <24 LV EF: 20 % (Mod. Parker's) (Normal: >=54%) LV Septum: 1.1 cm (Normal: <0.9 cm) Wall Motion Scoring (1=Normal 2=Hypo 3=Akinetic 4=Dyskin./Aneurysm 0=Not visualized) Parasternal Long [place]:MAS=2 BAS=2 MIL=2 SHAYAN=2 Parasternal Short [place]:MAS=2 MIS=2 AR=2 MIL=2 MAL=2 MA=2 Apical 4 Chambers:=2 MIS=2 BIS=2 BAL=2 MAL=2 AL=2 AC=2 Apical 2 [place]:AI=2 AR=2 BI=2 BA=2 MA=2 AA=2 AC=2 LV Global Longitudinal Strain: RV Global Longitudinal Strain: LV Function: Severe Global reduction in LV Ejection Fraction (EF<30%); EF via modified Parker's. (NOTE: If patient has irreversible LV Cardiac Dysfunction with EF<30%, they are at risk for Sudden Cardiac .) RV Function: mild global hypokinesis Septal Motion: Normal Pericardial Effusion: none seen Atrial Septum: Normal DOPPLER/COLOR FLOW DOPPLER RESULTS: Diastolic Function: indeterminate Tricuspid Valve: mild TV regurgitation Pulmonic Valve: normal PV AV Regurgitation: No AR seen AV Stenosis: no AV Area: cm2 AV Pressure Gradient (mmHg): Mean: 0, Peak:0 MV Regurgitation: Mild MR MV Stenosis: no MS MV Area: cm2 MV Pressure Gradient (mmHg): Mean: 0 MV ERO: cm Regurg. Vol.: ml/beat Regurg. Frac.: % PA Pressure: 45 mmHg DOPPLER/COLOR FOLOW DOPPLER COMMENTS: No AR seen, Mild MR, no , no MS, mild TV regurgitation, normal PV. Diastolic function: indeterminate CONTRAST: 0.8 ml Optison Administered, (2.2 ml wasted). SUMMARY: Frequent PVCs. Normal LV volume, mass. Severe global LV systolic dysfunction (LVEF 20%). Dyssynchronous LV contraction c/w RV pacing. Indeterminate diastolic function. Normal AV. Mild MR. Normal LA size. Normal RV size with mild hypokinesis. Mild TR. PASP 45 mmHg. Dilated IVC c/w elevated RAP. Wire in RA/RV. Abdominal aortic atherosclerosis. No definite LV thrombus. No images for comparison. Confirmed on 08/05/2022 - 11:34:56 by Jaleel Banegas MD I have reviewed the above imaging/diagnostic results and discussed with my attending. Assessment and Plan Ms. Giron is a 82 y.o. right handed woman with past medical history of CAD, AR, SSS s/p Biotronikpacemaker, Atrial fibrillation (previously on Eliquis but not currently, s/p AV node ablation 2018), HLD, HTN, CHF who initially presented with acute right sided hemiparesis, right facial weakness, and became mute. She was found to have an acute L MCA occlusion s/p TNK and MT with TICI 2B, 1 pass aspiration. Impression/Etiology: Ms. Giron presents with right hemiparasis and global aphasia that localizes to the Left MCA territory. Etiologies highest on the differential for consideration per TOAST criteria include: [id number] embolism or cardioembolism. Cardioembolism is most likely as she has a pacemaker in her right ventricle causing dyssynchornous squeeze of her left ventricle which could lead to clot formation,though no definitive thrombi were seen on TTE. She was also found to have 80% stenosis of her left ICA therefore artery to artery embolism is also possible. The patient will benefit from amelioration of stroke risk factors and optimization of stroke secondary prevention. The patient will be started on Aspirin 325mg Daily and The patient will also benefitfrom a high-intensity statin.. # acute left MCA stroke s/p TNK and mechanical thrombectomy TICI 2B Etiology: cardioembolic vs artery to artery embolism Risk Factors: Age > 55, hypertension, dyslipidemia, atrial fibrillation, and carotid artery stenosis Work up: - LDL 68, a1C 6.0 - EKG V paced 68 - HCT hyperdense L MCA, no hemorrhage - CTA L M1 cutoff; proximal L ICA stenosis estimated 80%, R ICA stenosis 50% - Angiogram with left carotid stenosis 50% - TTE EF 20%, dyssynchronous LV contraction 2/2 RV pacing, no definite thrombus - Loop on discharge: No Secondary Prevention: - ASA 325mg - Atorvastatin 40mg Daily, consider rosuvastatin or lower dose atorvastatin given age Blood Pressure: - Stroke BP Goal: Normotension <140/90 Risk Factor/Etiology Work-up: - Monitor on telemetry Consults: BEENA (Flue Lining Dipper, PT/OT, WOOD FINISHER APPRENTICE, Spiritual Care) #Hypotension Blood pressure in the field was 68/31, 90/45 at [place]. Initially responded to fluid boluses. Noted to have chronic left subclavian occlusion on CT CAP 08/03 and severe femoral stenosis on angiogram. Wide pulse pressure noted on her A line while in NNICU suggests arteriosclerosis. #Hyperlipidemia LDL on admission was 68. Goal LDL for secondary stroke prevention is <70. She has previously refused anti-lipid medication reporting feeling unwell on medicaiton and with muscle pain without weakness. # Chronic atrial Fibrillation s/p AV node ablation (01/06/2019) # SSS s/p pacemaker - Has Biotronik pacemaker placed 07/2018 mode DDD with rate set at 70 BPM - Last interrogated 07/02/2022: 60% battery life remaining, demonstrated ???100% Afib burden?? - Rate controlled without medications and V-paced - Per prior family reports, was prescribed Eliquis 5 mg BID and taking intermittently, however her pharmacy ([facility]) indicates she does not fill this medication and her daughter indicates she does not fill at other pharmacies - Telemetry - K > 4, Mg > 2 # Troponemia, resolved - Trop I hs peaked at 230 (105-->140-->230-->225) - no further trend - Likely secondary to demand ischemia in context of acute stroke, intubation however does have CAD with history of stent - Follow-up TTE to evaluate for wall motion abnormalities - Monitor on telemetry - likely 2/2 demand ischemia # Anemia, stable - H/H on admission 13/40.3 (08/03) with subsequent drop to 9.6 appearing spurious and suspect drawn from IV (as BMP at that time with hyperNa and hypoK that resolved upon recheck) with repeat 11.5 - Hgb stable now ~11 - Monitor Hgb in CBC daily - Maintain Hgb > 7 g/dL # Several bilateral femoral artery stenosis, incidental finding # Left subclavian occlusion, incidental finding - Subclavian finding noted on CTA - Femoral stenosis seen in diagnostic angiogram - can follow up outpatient with PCP or vascular # Oliguria, improving - Grossly stable renal function, suspect may have component of diuresis dependency given outpatientlasix use - Monitor UOP closely - Monitor renal function in BMP daily # Hx of Anxiety - In past had Rx for alprazolam and reportedly took it rarely, this is not an active medication andnot filled at pharmacy - Monitor clinically, avoid adding new medications that could confound neurologic exam # Suprapubic tenderness - reported 08/07 after making urine - assess UA w/ reflex to micro # Nutrition - currently with NGT receiving jevity 1.5 45/hr with H20 60 mL q4h - continue WOOD FINISHER APPRENTICE evaluation Disposition: Inpatient Rehab Code Status: LIMITED - No CPR Diet: No diet orders on file DVT Prophylaxis: Lovenox Lines/Tubes: Peripheral IV 08/03/22 18 G Anterior;Right Hand (Active) Number of days: 2 Peripheral IV 08/03/22 18 G Left Hand (Active) Number of days: 2 Urethral Catheter Non-latex;Temperature probe (Active) Number of days: 2 NG/OG Tube Nasogastric 12 Fr Right nostril (Active) Number of days: 1 Jojo Henry MD Neurology Resident Physician, PGY-3 [facility] Stroke Neurology [phone] Cosigned by Adryan Bailon MD at 08/07/2022 1:22 PM CDT Associated attestation - Adryan Bailon MD - 08/07/2022 1:22 PM CDT I have seen and examined the patient on 08/07/22. I agree with the findings and plan of care with the following modifications: Status post successful thrombectomy of her middle cerebral artery, carotid on angiography did not have significant stenosis (personally reviewed, agree), concerning that this is related to her history of atrial fibrillation as well as reduced ejection fraction. Discussed consideration of restarting apixaban versus Xarelto with her, she would prefer to continue apixaban (when we can restart it) for its lower bleeding risk. Discussing that she may need a G-tube to help out with oral intake. My total encounter time on 08/07/22 was 30 minutes which was spent in the activities documented in the note. This includes time spent prior to the visit and after the visit in direct care of the patient. This time does not include time spent in any separately reportable services. * Lenka Rowe, RD - 08/06/2022 12:00 PM CDT Nutrition Tube Feeding Assessment Reason for Assessment: Follow Up Encounter Date: 08/06/22 2:58 PM Patient is a 82 y.o. female with chief complaint of R-sided weakness. LOS is 3 days. HPI: CAD with prior AR s/p stent (2014), tachy-josue syndrome and atrial fibrillation s/p AV node ablation in 2019 (prescribed Eliquis, non-compliant and not filling), SSS s/p Biotronik pacemaker, hypertension, HFrEF, and HLD (non- compliant with statin therapy) who presented 08/03 to [facility] via EMS with acute-onset of right-sided hemiparesis with right facial weakness and global aphasia/mutism 08/03 08/04 NGT tip terminates gastric body Objective Past Medical History: Diagnosis Date Adiposity obesity [...] Atrial Fibrillation: Cardiovascular Intervention (ablation) SKIN BIOPSY Allergies Allergen Reactions Phenobarbital Hallucinations Codeine Rash, [...] (See comments) severe heart pain Diltiazem Itching Social History Tobacco Use Smoking status: Former Types: Cigarettes Quit date: 1974 Years since quittin.4 Smokeless tobacco: Never Substance and Sexual Activity Drug use: No Sexual activity: Defer Alcohol Use: Not on file Family History Problem Relation Age of Onset Other Mother Angina; Cause of : Angina Dementia Mother Dementia; Depression Mother Depression; COPD Father COPD; Cause of : COPD Dementia Father Dementia; Depression Father Depression; Other Sister 75 DM, CAD; Other Sister Valve Replacement; Cancer Brother Cancer; Depression Brother Depression; Hypertension Brother Hypertension; Breast cancer Child Anthropometrics: Wt Readings from Last 3 Encounters: 08/03/22 72.1 kg (158 lb 15.2 oz) 07/18/22 69.4 kg (153 lb) 08/28/21 70.3 kg (155 lb) Anthropometrics Weight: 72.1 kg (158 lb 15.2 oz) Admission Weight : 72.1 kg Weight Change: 2.69 kg (5.95 lbs) IBW/kg (Calculated) : 47.6 kg Height: 154.9 cm (5' 1 ) Weight in (lb) to have BMI = 25: 132 BMI (Calculated): 30 Nutrition Needs Calculations: Calculated Energy Needs Using Equations Weight: 72.1 kg (158 lb 15.2 oz) Height: 154.9 cm (5' 1 ) Minute Ventilation (L/min): 8.1 L/min Estimated Protein Needs Type of Weight Used for Estimated Protein : Gardiner Protein Needs Based on g/k.2 Total Protein Estimated Needs (gm): 57.12 Kcal/kg Type of Weight Used for Estimated Kcals: Current Kcal/k Total Kcal/kg Estimated Needs : 1586.2 Estimated Fluid Needs Type of Weight Used for Estimated Fluid Needs: Gardiner Fluid Needs Based on : 25 ml/kg Total Fluid Estimated Needs: 1190 Vital Signs: 24hr Min/Max: Temp Min: 36.6 ??C (97.9 ??F) Max: 37.9 ??C (100.2 ??F) Pulse Min: 69 Max: 79 BP Min: 128/59 Max: 181/70 Resp Min: 13 Max: 24 SpO2 Min: 93 % Max: 98 % Most Recent : Vitals: 08/06/22 1300 BP: 159/68 Pulse: 69 Resp: 17 Temp: SpO2: 98% Height: 154.9 cm (5' 1 ) Weight: 72.1 kg (158 lb 15.2 oz) Weight Change: 2.69 kg (5.95 lbs) Medications: Scheduled Meds: aspirin, 325 mg, feeding tube, Daily atorvastatin, 40 mg, feeding tube, Daily [Held by Provider] docusate, 100 mg, feeding tube, BID enoxaparin, 40 mg, subcutaneous, Daily-2100 losartan, 12.5 mg, oral, Daily metoprolol tartrate, 6.25 mg, feeding tube, BID [Held by Provider] senna, 8.8 mg, feeding tube, BID Continuous Infusions: Lab Review: Sodium Date Value Ref Range Status 08/05/2022 146 (H) 135 - 145 mmol/L Final Potassium, pl Date Value Ref Range Status 08/05/2022 4.5 3.3 - 4.9 mmol/L Final BUN Date Value Ref Range Status 08/05/2022 13 8 - 25 mg/dL Final Creatinine Date Value Ref Range Status 08/05/2022 0.67 0.60 - 1.10 mg/dL Final Phosphorus, pl Date Value Ref Range Status 08/03/2022 3.8 2.3 - 4.5 mg/dL Final Albumin Date Value Ref Range Status 08/03/2022 3.4 (L) 3.5 - 5.0 g/dL Final Magnesium Date Value Ref Range Status 08/05/2022 2.0 1.4 - 2.5 mg/dL Final Calcium Date Value Ref Range Status 08/05/2022 8.8 8.5 - 10.3 mg/dL Final HDL Date Value Ref Range Status 08/03/2022 33 (L) >=40 mg/dL Final Comment: Interpretive Data Ages < or = 19 years Acceptable: >45 mg/dL Borderline low: 40-45 mg/dL Low: <40 mg/dL Ages > or = 20 years Desirable: >or= 60 mg/dL Low: <40 mg/dL Literature References: 1. Expert Panel on Integrated Guidelines for Cardiovascular Health and Risk Reduction in Children and Adolescents. Pediatrics 2011;128:S213 2. NCEP Expert Panel. Circulation 2004;110:227 Current Interpretive Data was last revised on 2017. ALT Date Value Ref Range Status 08/03/2022 13 7 - 45 Units/L Final AST Date Value Ref Range Status 08/03/2022 26 10 - 45 Units/L Final Alk phos Date Value Ref Range Status 08/03/2022 35 (L) 40 - 130 Units/L Final Lab Results Component Value Date HGBA1C 6.0 (H) 08/03/2022 Nursing Assessment: Intake/Output Summary (Last 24 hours) at 08/06/2022 1458 Last data filed at 08/06/2022 1300 Gross per 24 hour Intake 1385 ml Output 1276 ml Net 109 ml Gastrointestinal Gastrointestinal (WDL): Exceptions to WDL Abdomen Inspection: Soft, Nondistended Bowel Sounds (All Quadrants): Active, Present Palpation: Soft, Tenderness Last BM Date: 08/05/22 Passing Flatus: Yes GI Symptoms: None Last BM Date: 08/05/22 Elvis Scale Score: 15 Skin Integrity: Puncture Dietary Orders (From admission, onward) Start Ordered 08/04/22 1242 Diet, Tube Feeding With Tray Jevity 1.5 dolores (via NGT per pump continuous); 45 (Initiate at 10 mL/hr, increase by 10 mL Q4 hrs to goal of 45 mL/hr x24 hrs.); 24 (hrs); 60 (mL); Water; Every 4 hours Diet effective now Comments: Follow Aspiration Precautions, elevate HOB Monitor BMP w/ Mg/Phos daily Question Answer Comment Tube Feeding Formula: Jevity 1.5 dolores via NGT per pump continuous Tube Feeding Continuous (mL/hr): 45 Initiate at 10 mL/hr, increase by 10 mL Q4 hrs to goal of 45 mL/hr x24 hrs. Duration (hr): 24 hrs Tube Feeding Flush (mL): 60 mL Flush Type: Water Flush Frequency: Every 4 hours 08/04/22 1242 Impression: A/O x3 with multiple choices, speech garbled Jevity 1.5 dolores at 45 ml/hour, tolerating goal of TF. No issues with NVD. 08/05 bedside swallow, NPO Colace, senna on hold 08/06 soft BM NUTRITION DIAGNOSIS Nutrition Diagnosis 1: Inadequate oral intake Related to: NPO status Evidenced by: Need for full tube feeding INTERVENTION Recommend continue with Jevity 1.5 dolores goal 45 ml/hour via NGT TF at goal will provide; 1,620 kcal (22.5 kcal/kg BW), 69 g Protein (1.4 g/kg IBW), 233 g CHO, and 821 mL free water via formula. Monitor electrolytes replete PRN. Follow aspiration precautions. GOAL(S) / MONITORING: Goals: Adequate nutrition to meet estimated needs by next assessment, Tolerance of enteral feeding at goal rate Interventions: Communication, Enteral nutrition administration Monitoring and Evaluation: Blood glucoses, Electrolyte changes, Hydration status, I/O, Labs, Stool patterns, TF tolerance, Weight changes Lyric Rowe RD [phone] (weekend air pollution engineer) * Clarisa Castillo MD - 08/06/2022 6:44 AM CDT Neuro Critical Care Progress Note ICU Admission Diagnosis: Acute left MCA stroke secondary to left M1 occlusion s/p TNK and mechanical thrombectomy (08/03) Brief HPI and Hospital Course: 82 year-old woman with history of CAD with prior AR s/p stent (2014), tachy- josue syndrome and atrial fibrillation s/p AV node ablation in 2019 (prescribed Eliquis, non-compliant and not filling), SSS s/p Biotronik pacemaker, hypertension, HFrEF, and HLD (non-compliant with statin therapy) who presented 08/03 to [facility] via EMS with acute-onset of right-sided hemiparesis with right facial weakness and global aphasia/mutism 08/03 at 1305. Notably BP in field had reportedly been 68/31, given1 L LR and subsequently 90/45. NIHSS was 23 (2 Questions, 2 Commands, 2 Gaze, 2 FD, 4 RUE, 4 RLE, 3aphasia, 2 dysarthria, [address] Head demonstrated hyperdense LEFT MCA sign without hemorrhage and CTA demonstrated complete occlusion of the L M1 segment as well as bilateral ICA stenosis (RIGHT ICA >50%, LEFT ICA ~80%) though contrast bolus timing sub- optimal (majority of bolus presentin pulmonary arteries). Received TNK 08/03 at 14:28 and transferred to [facility] ED for mechanical thrombectomy evaluation.Upon arrival to [facility] ED NIHSS was 16 (2 Questions, 2 commands, 2 gaze, ELIZABET FD, 2 RUE, 3 RLE, 3 aphasia, 2 dysarthria). She had repeat labs checked which noted Hgb reduced at 9.6 (from 13.0) but other labs were abnormal including electrolyte abnormalities and reduced PLT which in retrospect raises suspicion of diluted/erroneous blood draw. Due to recently administered TNK and Hgb drop, she underwent repeat CT head (non-contrast) and CT C/A/P which was negative for hemorrhage. Subsequently taken to Neuro IR for mechanical thrombectomy. Right groin/femoral access unsuccessful followed by successful left femoral access and TICI 2B reperfusion achieved. ICU course significant for ventilator-associated agitation s/p precedex 08/03- 08/04. She only remained intubated to facilitate lying flat following manual compression closure of femoral access sites. She was weaned and extubated the morning of 08/04. Upon further review of her records and medication dispense history, the patient's pharmacy indicates that she has never received Eliquis nor Entresto at their pharmacy (filling there since 2021) and her family denies the possibility that she fills elsewhere, admitting also that she historically has not wished to take certain medications either due to perceived side effects or issues with fillers . Interval Events: No acute overnight events. TTE obtained without evidence of thrombus but with worsened EF (20% from40%) and dilated IVC. CXardiology consulted for further evaluation. Family hesistant for starting medications needed for GDMT due to concern for prior reactions in the past and patient's former wishes to not take these medications. Discussions with family are ongoing. Vitals 24hr Temp Min: 36.6 ??C (97.9 ??F) Max: 38 ??C (100.4 ??F) Pulse Min: 69 Max: 79 NIBP BP Min: 80/69 Max: 181/70 MAP (mmHg) Av.2 Min: 74 Max: 115 A-line No data recorded I/O: Intake/Output Summary (Last 24 hours) at 08/06/2022 1317 Last data filed at 08/06/2022 1200 Gross per 24 hour Intake 1385 ml Output 1155 ml Net 230 ml UOP 550 mL LABS Recent Labs Lab Units 08/05/22234508/04/22210908/03/22209908/03/221956 SODIUM mmol/L 146* 142 141 140 POTASSIUM PLASMA mmol/L 4.5 4.2 4.2 4.2 CHLORIDE mmol/L 110 111* 109 109 CO2 mmol/L ANIONGAP mmol/L 8 6 9 8 GLUCOSE mg/dL 168 173 146 143 BUN SERUM mg/dL 13 12 11 12 CREATININE mg/dL 0.67 0.80 0.69 0.69 CALCIUM mg/dL 8.8 8.3* 7.9* 8.4* MAGNESIUM mg/dL 2.0 2.1 1.8 1.8 PHOSPHORUS PLASMA mg/dL -- -- 3.8 3.8 Recent Labs Lab Units 08/05/22234508/04/[id number]/03/22195608/03/221 08/03/22 1548 08/03/22 1350 WBC K/cumm 10.1* 10.6* 5.9 < > -- 6.3 HEMATOCRIT % 36.2 34.1* 34.8* < > -- 40.3 HEMATOCRIT POC -- -- -- < > -- -- HEMOGLOBIN, POC -- -- -- < > -- -- HEMOGLOBIN g/dL 11.7* 11.4* 11.5* < > -- 13.0 PLATELETS K/cumm 173 192 170 < > -- 185 APTT sec -- -- 27 -- -- 28 INR -- -- 1.3* -- 1.4* 1.3* < > = values in this interval not displayed. Recent Labs Lab Units 08/03/22209908/03/22195608/03/22 155 ALK PHOS Units/L 35* 34* 24* BILIRUBIN TOTAL mg/dL 0.5 0.5 0.4 TOTAL PROTEIN g/dL 5.7* 5.9* 4.2* ALBUMIN g/dL 3.4* 3.4* 2.5* ALT Units/L 13 14 10 AST Units/L 26 25 20 Recent Labs Lab Units 08/03/22195608/03/22 1726 PH ART 7.38 7.31* PCO2 ART mmHg 36 -- PO2 ART mmHg 166* -- PO2 ARTERIAL POC mmHg -- 147* HCO3 ART POC mmol/L -- 21 HCO3 ART (CALC) mmol/L 22 -- O2 SAT ART (KAN) % 99* -- BASE EXC ART mmol/L -3 -- IMAGING (Most recent) NEURO IMAGING: CT Head WO Contrast 08/04 IMPRESSION: No acute intracranial hemorrhage. No large acute territory infarct. Previously described focal hyperdensity within the left ICA terminus is better seen on prior study. PHYSICAL EXAM: General: Elderly woman appears documented age and comfortable lying in bed. HEENT: Mucous membranes moist, sclera anicteric Cardiac: Paced. Elevated JVP to mandible Pulmonary: Even, unlabored respirations. Symmetric chest rise and fall. Breath sounds diminished bilaterally. Abdomen: Rounded but non-distended in appearance, bowel sounds present, soft and mildly tender palpation in the epigastric region. Ext: Trace bilateral lower extremity peripheral edema. No digital cyanosis Skin: Warm and dry. NEURO EXAM Mental Status Awake and alert. Oriented to person and place with choices. She tracks and regards with preference on the left. Language Expressive > receptive aphasia. Follows central and some appendicular commands. She has minimal verbal output ( hungry ) and does not name or repeat. Cranial Nerves PERRL (OU 4mm > 3mm), right hemianopia by blink to threat, LEFT gaze preference but does cross midline. Right facial droop and rightward tongue deviation. Motor: Flaccid tone RUE/RLE. Does not participate in formal strength testing RUE - no spontaneous movement LUE grossly 07/26 RLE triple flexes to stim LLE brisk antigravity withdrawal NEUROLOGICAL Meds: Aspirin 325 mg daily Atorvastatin 40 mg daily Acetaminophen 650 mg q 4 hours prn # Left MCA stroke secondary to L M1/MCA occlusion s/p TNK and MT, TICI 2B (08/03) # L cervical ICA Stenosis (50% on angio) Completed Diagnostics -- CTA at OSH 08/03 with proximal left ICA stenosis estimated at 80% and right ICA stenosis estimated at 50%, subsequent angiogram with reported left carotid stenosis of 50% -- A1C 6.0, LDL 98 -- TTE with Doppler Frequent PVCs. Normal LV volume, mass. Severe global LV systolic dysfunction (LVEF 20%). Dyssynchronous LV contraction c/w RV pacing. Indeterminate diastolic function. Normal AV. Mild MR. Normal LA size. Normal RVsize with mild hypokinesis. Mild TR. PASP 45 mmHg. Dilated IVC c/welevated RAP.. No definite LV thrombus. Treatment -- BP goal Normotension -- SMART c/s - PT/OT and WOOD FINISHER APPRENTICE eval pending (post-stroke, swallow, aphasia) -- Continue aspirin and for secondary stroke prevention, timing of anticoagulation likely post stroke day 7 - 10 if neurologic examination is stable (will warrant conversation with patient and familyas historically non- compliant with Eliquis). -- Statin therapy: Atorvastatin 40 mg qHS, though of note patient has previously refused lipid lowering medications (will discuss with family) -- Defer discussions of carotid stenosis management to Stroke Neurology team # Hx of Anxiety -- In past had prescription for alprazolam and reportedly took it rarely, this is not an active medication and not filled at pharmacy -- Monitor clinically, avoid adding new medications that could confound neurologic exam CARDIOVASCULAR and HEME Meds: Atorvastatin 40 mg daily EKG: No new 2022 - BP 94/66 2021 - 112/ # CAD s/p AR with stent placement (2013) # HFrEF (LVEF 20%, was LVEF 40% in 2019) She follows with Dr. Hernandez [facility] Cardiology - last seen 07/18/22 in office. Home regimen: Furosemide 20mg daily, Spironolactone 25mg daily, Entresto 24-26 mg BID ((not being filled). Her last TTE documented 12/2019: mild global LV hypokinesis with EF 40% which is further reduced this admission. She will likely benefit from initiation and optimization of GDMT but will need to be weight against patient preference and family wishes. -- 08/06 TTE Frequent PVCs. Normal LV volume, mass. Severe global LV systolic dysfunction (LVEF 20%). Dyssynchronous LV contraction c/w RV pacing. Indeterminate diastolic function. Normal AV. Mild MR. Normal LA size. Normal RV size with mild hypokinesis. Mild TR. PASP 45 mmHg. Dilated IVC c/w elevated RAP.. No definite LV thrombus. -- Start Losartan 25mg Daily -- Start Metoprolol 6.25 BID -- Lasix 20mg IV x1 -- Consult Cardiology # Chronic atrial Fibrillation s/p AV node ablation (01/06/2019) # SSS s/p pacemaker She has Biotronik pacemaker placed 07/2018 mode DDD with rate set at 70 BPM that was last interrogated 07/02/2022: 60% battery life remaining, demonstrated ???100% Afib burden?? -- Metoprolol as above -- Consider anticoagulation at post stroke day 7 - 10 (~08/10 - 08/13) -- Telemetry -- K > 4, Mg > 2 # Troponin elevation -- Trop I hs peaked at 230 (105-->140-->230-->225) - no further trend -- Likely secondary to demand ischemia in context of acute stroke, intubation however does have CADwith history of stent -- Monitor on telemetry # HLD -- LDL on previous PCP visit was 139 however after thorough discussion with psychologist social she refused any anti-lipid medication. She felt unwell on the medication and experienced muscle pain, but no significant weakness -- Start Atorvastatin 40mg daily given new CVA # Anemia -- H/H on admission 13/40.3 (08/03) with subsequent drop to 9.6 appearing spurious and suspect drawnfrom IV (as BMP at that time with hyperNa and hypoK that resolved upon recheck) with repeat 11.5 -- Hgb stable now 11.5-->11.4 -- Monitor Hgb in CBC daily -- Maintain Hgb > 7 g/dL # Several bilateral femoral artery stenosis, incidental finding # Left subclavian occlusion, incidental finding -- Subclavian finding noted on CTA -- Femoral stenosis seen in diagnostic angiogram -- Neuro vascular checks q 4 hours PULMONARY Resp Min: 13 Max: 24 SpO2 Min: 93 % Max: 98 % End Tidal CO2: 24-28 Supplemental oxygen: 4 lpm nasal cannula Meds: N/A -- OOBTC -- IS RENAL Meds: N/A # Oliguria -- Grossly stable renal function, suspect may have component of diuresis dependency given outpatient lasix use -- Monitor UOP closely -- Monitor renal function in BMP daily GI and ENDO Meds: Colace 100 mg BID --> held 08/05 Senna 8.8 mg BID --> held 08/05 Zofran prn Diet: No diet orders on file Jevity 1.5 @ 45 mL/hr IV fluids: N/A Flushes: FWF 60 mL q 4 hours Last BM: 08/05 # Nutrition/Dysphagia secondary to stroke -- NG in situ for meds/feeds pending formal WOOD FINISHER APPRENTICE evaluation -- Continue TF and flushes -- WOOD FINISHER APPRENTICE eval -- Diet recs after WOOD FINISHER APPRENTICE eval INFECTION RELEVANT/MOST RECENT MICRO LAB DATA: UA: 08/03 WBC 0-5, negative nitrite/LE Meds: N/A # Leukocytosis -- WBC 6.3-->7.9-->5.9-->10.6 --> 10.1 -- T Max 38.2 C/24 hours -- Monitor WBC trend in CBC daily -- Monitor clinically, crowder-culture q 48 hours prn for T >/= 38.5 C or < 36 C ACCESS Lines PIV x3 Right radial a-line (08/03) - Kept for reported unreliable and discrepant NIBP, will re-eval for dc today after correlation Priscila 08/03 removed VTE Prophylaxis Last Venous Doppler: N/A Prophylaxis: SCDs, Lovenox 40 mg daily CODE STATUS: LIMITED - No CPR Disposition: NNICU, transfer to Stroke Neurology Clarisa Castillo MD Cosigned by Minh Fernando MD PhD at 08/06/2022 2:32 PM CDT Associated attestation - Minh Fernando MD PhD - 08/06/2022 2:32 PM CDT I have seen and examined this patient on the day of service. I have reviewed and confirmed the history, physical exam, laboratory and radiographic data with the house staff. I have reviewed and discussed my treatment plan with the ICU team and other medical/consultant internship staff as documented in the note below. * Juanjose Carty MD - 08/05/2022 11:00 PM CDT Interventional Radiology Progress Note Interval History: Abena Giron is a 82 y.o. female with PMH of afib off anticoagulation, HTN, HLD, and CAD (s/p stents) on DAPT, CHF, HLD. Symptom onset at 1:05 pm while eating lunch with family. She developed right facial weakness with right upper extremity and right lower extremity weakness and global aphasia. NIHSS was a 16, TNK administered at 2:30pm abd transferred for thrombectomy evaluation. CTA demonstrated a left M2 occlusion and proceeded with an emergent clinical thrombectomy 08/05/2022. Exam: Expressive aphasia, right facial droop, right upper limb weakness 1/5, Right lower limb weakness 2/5 with good strength in the left upper and lower extremities. Bilateral groin puncture sites clean and dry. Blood pressure (!) 181/70, pulse 76, temperature 37.7 ??C (99.9 ??F), temperature source Bladder, resp. rate 18, height 154.9 cm (5' 1 ), weight 72.1 kg (158 lb 15.2 oz), SpO2 95 %. Assessment: Neuro angiographic procedure performed on 08/03/22 demonstrated- 1. Left Middle cerebral artery occlusion 2. Successful mechanical thrombectomy with TICI 2B reperfusion of the left middle cerebral artery 3. Several Bilateral Femoral Artery Stenosis 4. 50% Left Carotid artery Stenosis. Progress: Completed bedside echocardiogram this morning with her daughter in the room. Dr Steele informed of progress. Plan: 1. Continue regular neuro observation. 2. Stroke work up, OT, PT, SALT * Lenka Rowe., RD - 08/05/2022 2:16 PM CDT Nutrition Tube Feeding Assessment Reason for Assessment: Follow Up Encounter Date: 08/05/22 2:17 PM Patient is a 82 y.o. female with chief complaint of R-sided weakness. LOS is 2 days. HPI: Pt presents w/ hx of CAD, AR, SSS s/p Biotronik pacemaker, Atrial fibrillation (previously on Eliquis, s/p AV node ablation 2018), HLD, HTN, CHF who presents to the NNICU with acute L MCA occlusion s/p TNK and MT with TICI 2B, 1 pass aspiration. 08/03-08/04 intubated 08/04: Pt remains intubated, NGT placed and plan to initiate enteral nutrition 08/04 extubated 08/05 request to talk with family about TF. Objective Past Medical History: Diagnosis Date Adiposity obesity [...] Atrial Fibrillation: Cardiovascular Intervention (ablation) SKIN BIOPSY Allergies Allergen Reactions Phenobarbital Hallucinations Codeine Rash, [...] (See comments) severe heart pain Diltiazem Itching Social History Tobacco Use Smoking status: Former Types: Cigarettes Quit date: 1974 Years since quittin.4 Smokeless tobacco: Never Substance and Sexual Activity Drug use: No Sexual activity: Defer Alcohol Use: Not on file Family History Problem Relation Age of Onset Other Mother Angina; Cause of : Angina Dementia Mother Dementia; Depression Mother Depression; COPD Father COPD; Cause of : COPD Dementia Father Dementia; Depression Father Depression; Other Sister 75 DM, CAD; Other Sister Valve Replacement; Cancer Brother Cancer; Depression Brother Depression; Hypertension Brother Hypertension; Breast cancer Child Anthropometrics: Wt Readings from Last 3 Encounters: 08/03/22 72.1 kg (158 lb 15.2 oz) 07/18/22 69.4 kg (153 lb) 08/28/21 70.3 kg (155 lb) Anthropometrics Weight: 72.1 kg (158 lb 15.2 oz) Admission Weight : 72.1 kg Weight Change: 2.69 kg (5.95 lbs) IBW/kg (Calculated) : 47.6 kg Height: 154.9 cm (5' 1 ) Weight in (lb) to have BMI = 25: 132 BMI (Calculated): 30 Nutrition Needs Calculations: Calculated Energy Needs Using Equations Weight: 72.1 kg (158 lb 15.2 oz) Height: 154.9 cm (5' 1 ) Minute Ventilation (L/min): 8.1 L/min Estimated Protein Needs Type of Weight Used for Estimated Protein : Gardiner Protein Needs Based on g/k.2 Total Protein Estimated Needs (gm): 57.12 Kcal/kg Type of Weight Used for Estimated Kcals: Current Kcal/k Total Kcal/kg Estimated Needs : 1586.2 Estimated Fluid Needs Type of Weight Used for Estimated Fluid Needs: Gardiner Fluid Needs Based on : 25 ml/kg Total Fluid Estimated Needs: 1190 Vital Signs: 24hr Min/Max: Temp Min: 37.7 ??C (99.9 ??F) Max: 38.2 ??C (100.8 ??F) Pulse Min: 69 Max: 80 BP Min: 56/36 Max: 156/62 Resp Min: 14 Max: 25 SpO2 Min: 95 % Max: 100 % Most Recent : Vitals: 08/05/22 1400 BP: Pulse: 73 Resp: 22 Temp: 38 ??C (100.4 ??F) SpO2: 96% Height: 154.9 cm (5' 1 ) Weight: 72.1 kg (158 lb 15.2 oz) Weight Change: 2.69 kg (5.95 lbs) Medications: Scheduled Meds: aspirin, 325 mg, feeding tube, Daily atorvastatin, 40 mg, feeding tube, Daily [Held by Provider] docusate, 100 mg, feeding tube, BID enoxaparin, 40 mg, subcutaneous, Daily-2100 [Held by Provider] senna, 8.8 mg, feeding tube, BID Continuous Infusions: Lab Review: Sodium Date Value Ref Range Status 08/04/2022 142 135 - 145 mmol/L Final Potassium, pl Date Value Ref Range Status 08/04/2022 4.2 3.3 - 4.9 mmol/L Final BUN Date Value Ref Range Status 08/04/2022 12 8 - 25 mg/dL Final Creatinine Date Value Ref Range Status 08/04/2022 0.80 0.60 - 1.10 mg/dL Final Phosphorus, pl Date Value Ref Range Status 08/03/2022 3.8 2.3 - 4.5 mg/dL Final Albumin Date Value Ref Range Status 08/03/2022 3.4 (L) 3.5 - 5.0 g/dL Final Magnesium Date Value Ref Range Status 08/04/2022 2.1 1.4 - 2.5 mg/dL Final Calcium Date Value Ref Range Status 08/04/2022 8.3 (L) 8.5 - 10.3 mg/dL Final HDL Date Value Ref Range Status 08/03/2022 33 (L) >=40 mg/dL Final Comment: Interpretive Data Ages < or = 19 years Acceptable: >45 mg/dL Borderline low: 40-45 mg/dL Low: <40 mg/dL Ages > or = 20 years Desirable: >or= 60 mg/dL Low: <40 mg/dL Literature References: 1. Expert Panel on Integrated Guidelines for Cardiovascular Health and Risk Reduction in Children and Adolescents. Pediatrics 2011;128:S213 2. NCEP Expert Panel. Circulation 2004;110:227 Current Interpretive Data was last revised on 2017. ALT Date Value Ref Range Status 08/03/2022 13 7 - 45 Units/L Final AST Date Value Ref Range Status 08/03/2022 26 10 - 45 Units/L Final Alk phos Date Value Ref Range Status 08/03/2022 35 (L) 40 - 130 Units/L Final Lab Results Component Value Date HGBA1C 6.0 (H) 08/03/2022 Nursing Assessment: Intake/Output Summary (Last 24 hours) at 08/05/2022 1417 Last data filed at 08/05/2022 1400 Gross per 24 hour Intake 1820 ml Output 325 ml Net 1495 ml Gastrointestinal Gastrointestinal (WDL): Exceptions to WDL Abdomen Inspection: Soft Bowel Sounds (All Quadrants): Active Palpation: Soft, No guarding Last BM Date: ([facility]) Passing Flatus: Yes GI Symptoms: None Last BM Date: ([facility]) Elvis Scale Score: 16 Skin Integrity: Puncture Dietary Orders (From admission, onward) Start Ordered 08/04/22 1242 Diet, Tube Feeding With Tray Jevity 1.5 dolores (via NGT per pump continuous); 45 (Initiate at 10 mL/hr, increase by 10 mL Q4 hrs to goal of 45 mL/hr x24 hrs.); 24 (hrs); 60 (mL); Water; Every 4 hours Diet effective now Comments: Follow Aspiration Precautions, elevate HOB Monitor BMP w/ Mg/Phos daily Question Answer Comment Tube Feeding Formula: Jevity 1.5 dolores via NGT per pump continuous Tube Feeding Continuous (mL/hr): 45 Initiate at 10 mL/hr, increase by 10 mL Q4 hrs to goal of 45 mL/hr x24 hrs. Duration (hr): 24 hrs Tube Feeding Flush (mL): 60 mL Flush Type: Water Flush Frequency: Every 4 hours 08/04/22 1242 Impression: +NGT, tip terminates tip in the proximal duodenum per Xray assessment. No issues with NVD. 08/04 Soft BM per nursing. Skin intact per nursing assessments. Spoke with family at bedside, pt normally eats healthy, fresh fruits, fresh vegetables, limited processed foods, likes chicken, fish, and deer. Answered all questions about tube feeding. 08/05 WOOD FINISHER APPRENTICE: bedside NPO blanca Gonzales on hold NUTRITION DIAGNOSIS Nutrition Diagnosis 1: Inadequate oral intake Related to: NPO status Evidenced by: Need for full tube feeding INTERVENTION Agree with Jevity 1.5 dolores goal 45 ml/hour via NGT. TF at goal will provide; 1,620 kcal (22.5 kcal/kg BW), 69 g Protein (1.4 g/kg IBW), 233 g CHO, and 821 mL free water via formula. Monitor electrolytes replete PRN. Follow aspiration precautions. GOAL(S) / MONITORING: Goals: Adequate nutrition to meet estimated needs by next assessment, Tolerance of enteral feeding at goal rate Interventions: Communication, Enteral nutrition administration Monitoring and Evaluation: Blood glucoses, Electrolyte changes, Hydration status, I/O, Labs, Stool patterns, TF tolerance, Weight changes Lyric Rowe RD [phone] (weekend air pollution engineer) * [place] Blue PT - 08/05/2022 12:06 PM CDT Physical Therapy Physical Therapy Initial Assessment NOTE: This is a summary note for the cisse assessments completed during the evaluation session. For full details, review chart review for all flowsheets documented on by this physical therapist on thisdate. Vital signs documented in vital signs flowsheet. Assessment Assessment Prognosis: Good Problem List: Gait deviations, Decreased strength, Decreased range of motion, Decreased endurance, Impaired balance, Decreased mobility Problem List Comments: PT Diagnosis: L MCA s/p TNK/MT TICI 2B results in above listed activity deficits and impairments which prevent full participation in home and community mobility Barriers to Discharge: Current Mobility Status Plan Plan Plan : Plan of care initiated, If this is the last note, consider this the discharge summary PT Recommendation and Plan Recommendation/Plan PT Recommendation/Plan: Inpatient Rehab Facility Patient at high risk for: Falls, Readmission, Injury due to reduced functional status, Injury due to impaired cognition, Injury due to balance deficits, Injury at home as patient has not returned to prior level of function, Developing impaired skin integrity Recommend Inpatient Rehab/Acute Rehab due to: Ability to actively participate in intensive therapy 3 hours/day, 5 days/week or 900 minutes per week, Highly motivated to participate in therapy, Likelyto return to the community at discharge with support system in place, Requires greater than 25% physical assistance with most mobility tasks, Requires multiple therapy disciplines to address functional deficits, Patient and caregiver require specialized skilled training due to new level of function/diagnosis, Requires skilled therapy interventions to address neurological deficits, Impaired ability to complete functional mobility PT Recommendation/Plan Comments: pt and family agreeable PT Frequency during current admission: 3-5x/wk Treatment/Interventions during current admission: Balance Training, Bed mobility, Endurance training, Functional activity, Equipment eval/education, Functional transfer training, Gait training, Neuromuscular re-education, Therapeutic activity, Therapeutic exercise, Transfer training PT - Next Appointment: 08/07/22 PT Evaluation Complete: Yes General Information General Chart Reviewed: Yes Session Type: Evaluation PT Received On: 08/05/22 Safe Environment: Arm band checked, Patient found in supine, Gait belt utilized for all out of bed mobility Subjective: Agreeable to Therapy Family/Caregiver Present: Yes (dtr) Physical Therapy-Patient Goal: Pt agreeable to goals stated by PT Prior Function Prior Function Level of Essie: Independent with ADLs, Independent with homemaking with ambulation Lives With: Alone Receives Help From: Family (Per dtr, not yet sure if they can provide 24hr care) Fall within the last 6 months: No Prior Function Comments: Pt provided with collateral from dtr Home Living Home Living Type of Home: House Home Layout: One level Home Access: Stairs to enter with rails Entrance Stairs-Number of Steps: 2 Home Mobility Equipment: None Additional Comments: Pt provided with collateral from dtr Precautions Precautions Precautions: Fall risk Pain Pain Assessment Pain Assessment: No/denies pain Cognition Cognition Arousal/Alertness: Appropriate responses to stimuli Orientation : Oriented to person, Oriented to place Compliance/Behavior: Easy to engage 6 Clicks Basic Mobility - 6 Click How much difficulty does the patient have: Turning over in bed: A little How much difficulty does the patient currently have: Sitting down and standing up from a chair witharms?: A lot How much difficulty does the patient have: Moving from lying on back to sitting on the side of the bed?: A little How much difficulty does the patient have: Moving to and from a bed to a chair including wheelchair?: A lot How much help does the patient currently need: Walk in hospital room?: A lot How much help from another person does the patient currently need: Climbing 3-5 steps with a railing?: Total Total 6 Click Score (range 6-24): 13 Bed Mobility Bed Mobility 1 Bed Mobility From 1: Supine Bed Mobility Type 1: To Bed Mobility to 1: Edge of bed Level of Assistance 1: Minimum Assist Bed Mobility Comments 1: assist to move R LE, elevated trunk, turn hips Transfers Transfer 1 Transfer From 1: Sit Transfer Type 1: To and from Transfer to 1: Stand Transfer Device 1: Hand held assist Transfer Level of Assistance 1: Moderate Assist Trials/Comments 1: x3 trials, assist for force production and balance, blocking R LE Transfers 2 Transfer From 2: Bed Transfer Type 2: To and from Transfer to 2: Commode-standard Technique 2: Stand pivot Transfer Device 2: Hand held assist Transfer Level of Assistance 2: Maximum Assist Trials/Comments 2: assist for balance, weight shifting, R LE blocking Balance Ambulation Ambulation 1 Ambulation Comments 1: Unable to complete Gait Speed (10 meter walk) as a fall risk outcome measuredue to inability to ambulate this distance without significant assistance. Stairs Curbs RLE Assessment RLE Assessment RLE Assessment: Exceptions to WFL Strength RLE R Hip Flexion: 4/5 R Knee Extension: 3/5 R Ankle Dorsiflexion: 0/5 LLE Assessment LLE Assessment LLE Assessment: Within Functional Limits LLE Comments: ELIZABET MMT 2/2 command following impairments (difficulty with multi- step commands on this date) Equipment Used Safe Environment End of Session Safe Environment End of Therapy Session: Patient left supine in bed, RN notified, Bed in lowest position with wheels locked, Bed rails up per protocol, Overbed table within reach, Call light within reach, Sequential compressive devices on legs and activated (Returned to bed 2/2 echo) Other Comments Other Comments Other PT Comments: Pt educated on PT POC and d/c recommendations PT Goals Multi-Disciplinary Problems (from Physical Therapy) Active Problems Problem: Mobility Start Date: 08/05/22 Goal Start Date Expected End Date End Date LTG - Patient will demonstrate functional mobility with the following level of assist: mod I 08/05/22 09/16/22 -- Goal Start Date Expected End Date End Date STG - Patient will ambulate 50 feet with LRD, min assist 08/05/22 08/19/22 -- Problem: Transfers Start Date: 08/05/22 Goal Start Date Expected End Date End Date STG - Transfer from bed to chair with supervision 08/05/22 08/19/22 -- Goal Start Date Expected End Date End Date STG - Patient to transfer to and from sit to supine with supervision 08/05/22 08/19/22 -- Goal Start Date Expected End Date End Date STG - Patient will transfer sit to and from stand with supervision 08/05/22 08/19/22 -- * Citlaly Jacobson - 08/05/2022 10:51 AM CDT Occupational Therapy Occupational Therapy Initial Assessment NOTE:This is a summary note for the cisse assessments completed during the evaluation session. For full details, review chart review for all flowsheets documented on by this Occupational Therapist on this date. Vital signs documented in vital signs flowsheet. Assessment Assessment Problem List: Decreased balance, Decreased fine motor control, Decreased functional mobility, Decreased ADL independence, Decreased IADL independence, Non-functional right upper extremity, Decreased upper extremity range of motion, Decreased upper extremity strength, Decreased safe judgment during ADL Plan Plan Plan: Plan of care initiated, If this is the last note, consider this the discharge summary OT Recommendation and Plan Recommendation/Plan OT Recommendation: Inpatient Rehab Facility Patient at high risk for: Falls, Readmission, Injury due to decreased ability to care for self, Injury due to balance deficits, Injury at home as patient has not returned to prior level of function Recommend Inpatient Rehab/Acute Rehab due to: Ability to actively participate in intensive therapy 3 hours/day, 5 days/week or 900 minutes per week, Highly motivated to participate in therapy, Not atbaseline due to impaired ability to complete ADLs OT Frequency during current admission: 3-5x/wk Treatment/Interventions during current admission: ADL/IADL retraining, Balance Training, Bed mobility, Cognitive retraining, Functional activity, Functional mobility training, Functional transfer training, Therapeutic activity, Therapeutic exercise, Transfer training, Range of motion, Positioning OT - Next Appointment: 08/07/22 OT Evaluation Complete: Yes General Information General Chart Reviewed: Yes Session Type: Evaluation OT Received On: 08/05/22 Safe Environment: Arm band checked, Patient found in supine, Gait belt utilized for all out of bed mobility Subjective: Agreeable to Therapy Family/Caregiver Present: Yes (daughters present) Occupational Therapy-Patient Goal: Pt does not report OT goal this date but eager to participate intherapy. Precautions Precautions Precautions: Fall risk Home Living Home Living Type of Home: House Home Layout: One level Bathroom Shower/Tub: Tub/shower unit Home Mobility Equipment: None Prior Function Prior Function Level of Essie: Independent with ADLs, Independent with homemaking with ambulation Lives With: Alone Receives Help From: Family (department store salesperson assistance available) Driving: Yes ADL Assistance: Independent Instrumental ADL (IADL) Assistance: Independent Vocational/Occupation: Retired Fall within the last 6 months: No Prior Function Comments: PLOF provided by daughter Activities of Daily Living Grooming Grooming: Where assessed: Chair Grooming: Level of assistance: Maximum Assist (min task, total balance) LE Dressing LE Dressing: Where assessed: Chair LE Dressing: Level of assistance: Maximum Assist (max task, mod balance) Toilet Transfers Toilet Transfer From: Bed Toilet Transfer Type: To Toilet Transfer to: Standard bedside commode (simulated bedside commode with chair) Toilet Transfer Technique: (stand and step) Toilet Transfer: Equipment: Hand hold Toilet Transfers: Moderate assistance (assist for impaired balance, decreased force production, controlled descent, and R LE blocking) Pain Pain Assessment Pain Assessment: No/denies pain Cognition Cognition Arousal/Alertness: Alert Attention Span: Attends with cues to redirect Memory: Unable to assess Current communication: (expressive language impairment noted) Orientation : Oriented X4 (person, place, time, situation) (with choices) Following Commands: Follows one step commands with repetition Safety Judgment: Decreased awareness of need for safety Compliance/Behavior: Easy to engage Short Blessed Test Short Blessed Comments: Unable to complete due to expressive language impairment. Trails A & B ([place] Making Test) Unable to complete Trails A due to: Does not have glasses Unable to complete Trails B due to: Does not have glasses 6 Clicks Daily Activity - 6 Clicks Putting on and taking off regular lower body clothing: A lot Bathing: A lot Toileting: A lot Putting on and taking off upper body clothing: A Lot Personal Grooming: A lot Eating Meals: Total Total Score (range 6-24): 11 Score Interpretation: 11 Transfers Transfer 1 Transfer From 1: Sit Transfer Type 1: To and from Transfer to 1: Stand Transfer Device 1: Hand held assist Transfer Level of Assistance 1: Moderate Assist (assist for impaired balance, decreased force production, controlled descent, and R LE blocking) Bed Mobility Bed Mobility Bed Mobility: Yes Bed Mobility 1 Bed Mobility From 1: Supine Bed Mobility Type 1: To Bed Mobility to 1: Edge of bed Level of Assistance 1: Minimum Assist (assist to maneuver LEs and bring hips EOB) RUE Assessment RUE Assessment RUE Assessment: Exceptions to WFL RUE Comments: No AROM, PROM WFL LUE Assessment LUE Assessment LUE Assessment: Within Functional Limits Safe Environment End of Session Safe Environment End of Therapy Session: Patient left in recliner, Chair alarm in place and activated, RN notified, Call light within reach OT Goals Multi-Disciplinary Problems (from Occupational Therapy) Active Problems Problem: Dressings Lower Extremities Start Date: 08/05/22 Goal Start Date Expected End Date End Date STG - Patient to complete lower body dressing with supervision. 08/05/22 08/12/22 -- Problem: Grooming Start Date: 08/05/22 Goal Start Date Expected End Date End Date STG - Patient will complete grooming tasks with supervision. 08/05/22 08/12/22 -- Problem: Transfers Start Date: 08/05/22 Goal Start Date Expected End Date End Date STG - Patient will perform toilet transfer with supervision. 08/05/22 08/12/22 -- Problem: OT Misc Start Date: 08/05/22 Goal Start Date Expected End Date End Date OT LTG - Patient will perform ADLs independently. 08/05/22 09/05/22 -- Cosigned by Arlin Pantoja OT at 08/05/2022 3:34 PM CDT * Mili Longo - 08/04/2022 11:41 AM CDT Spiritual care note Triage valet parkerrick Longo 08-04-22 1142 prayed 08/04/22 1100 Time Spent Start Time 1112 Stop Time 1122 Time Calculation (min) 10 min Patient Spiritual Assessment Spirituality Assessed Focus of Care Spiritual Needs Prayer Clinical Encounter Type Visited With Patient and family together Response Type Routine visit Routine Visit Introduction Reason for visit Support Referral From Nurse Outcomes and Progress Preserve dignity and respect Partially Achieved Demonstrating care and respect Achieved Shonna affirmation Partially Achieved Establish rapport and connectedness Partially Achieved Sense of peace Partially Achieved Acceptance of condition or situation Partially Achieved Interventions Interventions Active listening;Assist with finding purpose;Offer spiritual/mormon support;Prayer * Junior Baugh MD PhD - 08/04/2022 6:06 AM CDT Neuro Critical Care Progress Note CC: Acute right sided weakness Abbreviated HPI: Ms Giron is a 82y/o female with PMH of CAD, AR, SSS s/p Biotronik pacemaker, Atrial fibrillation (previously on Eliquis, s/p AV node ablation 2018), HLD, HTN, CHF. She is admitted to the ICU with acute expressive aphasia and RIGHT-sided weakness with witnessed onset at 1305 5/13. He was found to have a LEFT M1 occlusion by CTA Head/Neck. He is now s/p TNK and MT with TICI 2B,1 pass aspiration, admitted to ICU for further care. Briefly, the patient was at her baseline when she had witnessed onset at 1305 5/13 and developed acute right sided hemiparesis, right facial weakness, and became mute. The patient was hypotensive in the field (68/31) and was taken to [facility] where BP had slightly improved (90/45) and improved further after 1L LR bolus. NIHSS was 23 (2 Questions, 2 Commands, 2 Gaze, 2 FD, 4 RUE, 4 RLE, 3 aphasia, 2 dysarthria, [address] Head demonstrated hyperdense LEFT MCA sign without hemorrhage, so the patient was recommended for TNK as long as the patient did not have contraindications (to be confirmed by [facility]). The patient then had CTA which demonstrated complete occlusion of the L [id number] as well as bilateral ICA stenosis (RIGHT ICA >50%, LEFT ICA ~80%). She was given a 17mg bolus of TNK at 14:28 and transferred to [facility] ED for mechanical thrombectomy evaluation. Upon arrival to [facility] ED NIHSS was 16 (2 Questions, 2 commands, 2 gaze, ELIZABET FD, 2 RUE, 3 RLE, 3 aphasia, 2 dysarthria). She had repeat labs checked which noted Hgb reduced at 9.6 (from 13.0) but other labs were abnormal including electrolyte abnormalities and reduced PLT. Given low HgB after TNK the patient had crowder-body imaging including CT Head and CTA C/A/P, all unremarkable. The patient was thentaken to MT with attempted RIGHT femoral access (unsuccessful) followed by LEFT femoral access (successful). She was a TICI2B reperfusion. Intra-op, she was an easy airway and received 400 cc crystalloids, 4 mg zofran, propofol, and alysa-synephrine. EBL 50 ml. Interval Events: - NAEON - Required Precedex overnight to tolerate 6 hour flat time (required because of manual pressure at fem site at case conclusion) - Remained intubated overnight because patient would intermittently become apneic during PSV trials. Weaning precedex overnight - Repeat head CT for post-TNK surveillance at 0421. No hemorrhage, early ischemic changes in the LEFT temporal lobe - Transitioned to PSV this AM once Precex weaned to 0.3 - This morning, patient is arousing to voice. Extubated to NC on rounds Vitals 24hr Temp Min: 35.7 ??C (96.3 ??F) Max: 36.4 ??C (97.5 ??F) Pulse Min: 69 Max: 84 NIBP BP Min: 82/55 Max: 119/52 MAP (mmHg) Av.5 Min: 61 Max: 100 A-line Arterial Line BP Min: 117/52 Max: 145/64 Arterial Line MAP (mmHg) Av.9 mmHg Min: 75 mmHg Max: 97 mmHg I/O: Intake/Output Summary (Last 24 hours) at 08/04/2022 0606 Last data filed at 08/04/2022 0400 Gross per 24 hour Intake 779.47 ml Output 825 ml Net -45.53 ml LABS Recent Labs Lab Units 08/03/22 2100 08/03/22 1957 08/03/22 1915 08/03/22 1726 08/03/22 1551 SODIUM mmol/L 141 140 -- -- 148* POTASSIUM PLASMA mmol/L 4.2 4.2 -- -- 2.9* CHLORIDE mmol/L 109 109 -- -- 124* CO2 mmol/L 23 23 -- -- 18* ANIONGAP mmol/L 9 8 -- -- 6 GLUCOSE mg/dL 146 143 -- -- 82 POC GLUCOSE MONITOR mg/dL -- -- 158 < > -- BUN SERUM mg/dL 11 12 -- -- 8 CREATININE mg/dL 0.69 0.69 -- -- 0.50* CALCIUM mg/dL 7.9* 8.4* -- -- 5.2* MAGNESIUM mg/dL 1.8 1.8 -- -- -- PHOSPHORUS PLASMA mg/dL 3.8 3.8 -- -- -- < > = values in this interval not displayed. Recent Labs Lab Units 08/03/22195608/03/22172508/03/22 1551 08/03/22 1350 WBC K/cumm 5.9 -- 7.9 6.3 HEMATOCRIT % 34.8* -- 29.9* 40.3 HEMATOCRIT POC % -- 43.0 -- -- HEMOGLOBIN, POC g/dL -- 14.2 -- -- HEMOGLOBIN g/dL 11.5* -- 9.6* 13.0 PLATELETS K/cumm 170 -- 116* 185 APTT sec 27 -- -- 28 INR 1.3* -- -- 1.3* Recent Labs Lab Units 08/03/22 2100 08/03/22195608/03/22 1551 ALK PHOS Units/L 35* 34* 24* BILIRUBIN TOTAL mg/dL 0.5 0.5 0.4 TOTAL PROTEIN g/dL 5.7* 5.9* 4.2* ALBUMIN g/dL 3.4* 3.4* 2.5* ALT Units/L 13 14 10 AST Units/L 26 25 20 Recent Labs Lab Units 08/03/22195608/03/226 PH ART 7.38 7.31* PCO2 ART mmHg 36 -- PO2 ART mmHg 166* -- PO2 ARTERIAL POC mmHg -- 147* HCO3 ART POC mmol/L -- 21 HCO3 ART (CALC) mmol/L 22 -- O2 SAT ART (KAN) % 99* -- BASE EXC ART mmol/L -3 -- IMAGING (Most recent) NEURO IMAGING: CT Head WO Contrast PHYSICAL EXAM: General: NAD HEENT: Mucous membranes moist, sclera anicteric Cardiac: RRR, no M/R/G Pulmonary: Even, unlabored respirations. Symmetric chest rise and fall. Lungs clear to auscultationanterior krause. Abdomen: Non-distended in appearance, bowel sounds present, soft/non-tender to palpation. No massesor HSM. Ext: No peripheral edema or digital cyanosis Skin: No rashes or lesions NEURO EXAM Mental Status Eyes open to voice, regards, oriented to name spontaneously ( Abena ) but does not answer other orientation questions. Approximates the command (when asked to show thumb, shows hands). Does not repeat. Cranial Nerves PERRL, RIGHT HH by BTT, LEFT gaze preference and unable to cross to midline, RIGHT facial droop, tongue midline, +corneals/cough/gag Motor: Flaccid tone RUE/RLE. 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 Patient was previously not fully adherent because she did not like taking medicine -- Statin therapy: Atorvastatin 40 mg qHS, though of note patient has previously refused lipid lowering medications (will discuss with family) -- Consider t/b/w NSGY regarding whether carotid intervention is indicated given report of 50% LEFTICA stenosis # Anxiety -- Hold home Alprazolam, takes it rarely CARDIOVASCULAR and HEME Meds: none EKG: V-paced # Hypotension Etiology unclear: could be baseline BP vs component of hypovolemia given slight hemodilution on initial CBC. BP 68/31 in the field when EMS arrived, then 90/45 when she arrived at OSH. Has a documented history of HTN in cardiology clinic notes however BP at the time of office visit 90/60's -- s/p 2L bolus at OSH ED -- Will hold home cardiac regimen at this time -- TTE -- MAP > 60 -- required 1 L NS in the OR for SBP in the 60's # Atrial Fibrillation, chronic Rate controlled without medications and V-paced -- Per daughter is prescribed Eliquis 5 BID, taking intermittently with missed doses. AC as above -- Telemetry -- K>4, Mg >2 -- currently V-paced # CAD s/p AR with stent placement (2013) # SSS s/p pacemaker # HFrEF (LVEF 40% in 2019) -- Follows with Dr. Hernandez [facility] Cardiology -- Has Biotronik pacemaker placed 07/2018 mode DDD with rate set at 70 BPM -- Last interrogated 07/02/2022: 60% battery life remaining, demonstrated ???100% Afib burden?? -- Last TTE documented 12/2019: mild global LV hypokinesis with EF 40% -- Home regimen: Furosemide 20mg daily, takes Spironolactone 25mg daily, Entresto 24/26mg BID discontinued because patient is not taking per family. Not on antiplatelet per family -- Repeat TTE as above -- Trend troponins until peaked -- Will need to t/b/w Dr. Hernandez vs inpatient Cards regarding whether dual therapy is indicated given history of stent placement -- FBG even # HLD -- LDL on previous PCP visit was 139 however after thorough discussion with psychologist social she refused any anti-lipid medication. She felt unwell on the medication and experienced muscle pain, but no significant weakness -- Start Atorvastatin 40mg daily given new CVA # Anemia -- CBC daily -- Hgb >7 # Elevated troponin Troponins have peaked at 230, now downtrending -- likely 2/2 demand ischemia -- Secondary to vasopressors for BP augmentation -- Monitor on telemetry -- trend troponin, will discontinue now -- NNICU repletion protocol: K>4, Mg >2 PULMONARY Resp Min: 10 Max: 24 SpO2 Min: 93 % Max: 100 % End Tidal CO2: 30 Ventilator settings: VCAC 14/350/40%/5. Last ABG was on 14/350/30%/5 and was 7.38/36/166 CXR: - CXR 08/03: Mild basilar atelectasis seen with possible tiny pleural. No pneumothorax is seen. Trace pulmonary edema is noted. No pneumonia. The heart size and mediastinal contour are unchanged. Secretions: none Meds: Peridex BID # Airway protection s/p intubation # Extubation 08/04 -- Wean FiO2 RENAL Meds: none # Hypomagnesemia -- Repleted Mg GI and ENDO Meds: Colace BID Senna BID Pepcid daily PRN Zofran Diet: NPO Diet IV fluids: none Flushes: none Last BM: [employer] # Nutrition -- WOOD FINISHER APPRENTICE eval -- Diet recs after WOOD FINISHER APPRENTICE eval # GI prophylaxis -- d/c Pepcid as now extubated INFECTION RELEVANT/MOST RECENT MICRO LAB DATA: Blood cultures: none Respiratory cultures: none Urinalysis/Urine culture: unremarkable Meds: none # No active issues -- CBC daily -- crowder culture for temp >38.5 ACCESS Lines PIV x3 A-line, d/c today Francois 08/03 -> d/c francois VTE Prophylaxis Last Venous Doppler: none Prophylaxis: SCDs, Lovenox at 1400 CODE STATUS: LIMITED - No CPR Disposition: NNICU Junior Baugh MD PhD Cosigned by Minh Fernando MD PhD at 08/04/2022 3:01 PM CDT Associated attestation - Minh Fernando MD PhD - 08/04/2022 3:01 PM CDT I have seen and examined this patient on the day of service. I have reviewed and confirmed the history, physical exam, laboratory and radiographic data with the house staff. I have reviewed and discussed my treatment plan with the ICU team and other medical/consultant internship staff as documented in the note below. In brief will plan on extubating the patient this morning. Continued right sided weakness. Close neurologic monitoring. SMART consult, aspirin, and atorvastatin. Post TNK and thrombectomy precautions. Will obtain TTE. Resume patient's home BP meds in subacute setting. Critical Care Time: I have spent 39 minutes in full attendance with this critically ill patient making frequent reassessments and decisions regarding this patient's complex medical care. Critical care time was exclusive of separately billable procedures, treating other patients and teaching time. Critical care was necessary to treat or prevent imminent or life-threatening deterioration due to acute respiratory failure and Required ventilator management. documented in this encounter H&P Notes * Alice Yoo NP - 08/03/2022 8:08 PM CDT Neuro Critical Care Admission H&P CC: Acute right sided weakness HPI: Ms Giron is a 82y/o female with PMH of CAD, AR, SSS s/p Biotronik pacemaker, Atrial fibrillation (previously on Eliquis, s/p AV node ablation 2018), HLD, HTN, CHF who presents to the NNICU with acute L MCA occlusion s/p TNK and MT with TICI 2B, 1 pass aspiration. Per chart review, she was in her usual state of health when she was out eating lunch at 13:05 when she developed acute right sided hemiparesis, right facial weakness, and became mute. EMS was called and upon arrival she was noted to have a BP of 68/31. She was taken to [facility] for further evaluation as a [place]. Her vital signs upon arrival were: 36.1C, HR 74, RR 23, 90/45, 98% on RA with a BG of 137. She was given a 1L bolus and her BP improved to 109/89. Her initial NIH was 23 (mute, gaze palsy, right UE/LE hemiparesis, neglect, facial weakness.) STAT HCT with large hyperdense MCA sign, no hemorrhage. Head/Neck CTA with near complete occlusion of the L M1 segment with faint contrast filling in the cortical M2/M3 branches with moderate stenosis of the proximal R ICA (at least 50%) and high-grade stenosis of the proximal L ICA (approx. 80%.) Telestroke was consulted and after medication review with local pharmacy it was noted that she no longer takes this medication. Given her symptoms and LVO it was decided to proceed with TNK. She was given a 17mg bolus of TNK at 14:28 and transferred to [facility] ED for mechanical thrombectomy evaluation. Upon arrival to [facility] ED her vital signs were: HR 82, 98/68, RR 20 with a transfer NIH of 16. Per Neurology consult service, she would open her eyes, regard on the left, intermittently follow simple commands, aphasic, and was now moving her right side antigravity with right sided neglect. Her admission labs were significant for Hgb drop 13.0 to 9.6 with associated Platelet frop from 185 to 116 withmultiple electrolyte disturbances that were suspicious for lab error. Being that she was s/p TNK with hypotension and lowered Hgb, she was sent for repeat imaging. Repeat HCT negative for intracranial hemorrhage. CT chest/abdomen/pelvis demonstrated no evidence of acute bleeding within the chest, abdomen, or pelvis. The was an extensive atherosclerotic calcification of the abdominal aorta and splanchnic arteries with at least moderate narrowing of the distal superior mesenteric artery. He patient was taken to thrombectomy with initial a right fem access but unable to pass and tried the left femoral access. The patient arrived to NNICU with acute L MCA occlusion s/p TNK and MT with TICI 2B. Intra-op, she was an easy airway and received 400 cc crystalloids, 4 mg zofran, propofol, and alysa-synephrine. EBL 50 ml. Past Medical History: Diagnosis Date Adiposity obesity [...] Atrial Fibrillation: Cardiovascular Intervention (ablation) SKIN BIOPSY Social History Tobacco Use Smoking status: Former Types: Cigarettes Quit date: 1974 Years since quittin.3 Smokeless tobacco: Never Substance and Sexual Activity Drug use: No Sexual activity: Defer Alcohol Use: Not on file Family History Problem Relation Age of Onset Other Mother Angina; Cause of : Angina Dementia Mother Dementia; Depression Mother Depression; COPD Father COPD; Cause of : COPD Dementia Father Dementia; Depression Father Depression; Other Sister 75 DM, CAD; Other Sister Valve Replacement; Cancer Brother Cancer; Depression Brother Depression; Hypertension Brother Hypertension; Breast cancer Child Allergies Allergen Reactions Phenobarbital Hallucinations Codeine Rash, [...] (See comments) severe heart pain Diltiazem Itching Medications Prior to Admission Medication Sig Dispense Refill Last Dose ALPRAZolam (XANAX) 0.25 mg tablet Take 1 tablet (0.25 mg total) by mouth 2 (two) times a day as needed for anxiety (Patient not taking: Reported on 08/28/2021) 60 tablet 1 apixaban (ELIQUIS) 5 mg tablet take 1 tablet by oral route 2 times every day 0 0 artificial tears (SYSTANE) 0.3 % gel Apply 1 drop to both eyes 4 (four) times a day as needed (Patient not taking: Reported on 07/18/2022) ascorbic acid (VITAMIN C) 1,000 mg tablet Take 2 tablets (2,000 mg total) by mouth daily cholecalciferol (VITAMIN D-3) 2,000 unit tablet take 1 tablet by oral route every day 90 3 cyanocobalamin (Vitamin B-12) 100 mcg tablet Take 1 tablet (100 mcg total) by mouth daily Entresto 24-26 mg tablet (Patient not taking: Reported on 08/28/2021) fexofenadine (WALESKA) 180 mg tablet Take 1 tablet (180 mg total) by mouth daily fluticasone propionate (FLONASE) 50 mcg/actuation nasal spray Administer 2 sprays into each nostrildaily 16 g 3 furosemide (LASIX) 20 mg tablet Take 1 tablet (20 mg total) by mouth daily 90 tablet 1 spironolactone (ALDACTONE) 25 mg tablet Take 1 tablet (25 mg total) by mouth daily 90 tablet 1 Review of Systems: All other systems negative except as indicated in HPI. Interval Events: Vitals 24hr Temp Min: 35.9 ??C (96.7 ??F) Max: 36.3 ??C (97.4 ??F) Pulse Min: 69 Max: 84 NIBP BP Min: 82/55 Max: 105/95 MAP (mmHg) Av.6 Min: 61 Max: 100 A-line Arterial Line BP Min: 131/59 Max: 131/59 Arterial Line MAP (mmHg) Av mmHg Min: 88 mmHg Max: 88 mmHg I/O: Intake/Output Summary (Last 24 hours) at 08/03/20222007 Last data filed at 08/03/2022 1933 Gross per 24 hour Intake 400 ml Output 50 ml Net 350 ml LABS Recent Labs Lab Units 08/03/22191408/03/22172508/03/22 15508/03/22 1350 SODIUM mmol/L -- -- 148* 138 POTASSIUM PLASMA mmol/L -- -- 2.9* 3.7 CHLORIDE mmol/L -- -- 124* 104 CO2 mmol/L -- -- 18* 25 ANIONGAP mmol/L -- -- 6 9 GLUCOSE mg/dL -- -- 82 150 POC GLUCOSE MONITOR mg/dL 158 160 -- -- BUN SERUM mg/dL -- -- 8 13 CREATININE mg/dL -- -- 0.50* 0.78 CALCIUM mg/dL -- -- 5.2* 9.2 Recent Labs Lab Units 08/03/22172508/03/22 15508/03/22 1350 WBC K/cumm -- 7.9 6.3 HEMATOCRIT % -- 29.9* 40.3 HEMATOCRIT POC % 43.0 -- -- HEMOGLOBIN, POC g/dL 14.2 -- -- HEMOGLOBIN g/dL -- 9.6* 13.0 PLATELETS K/cumm -- 116* 185 APTT sec -- -- 28 INR -- -- 1.3* Recent Labs Lab Units 08/03/22 1551 08/03/22 1350 ALK PHOS Units/L 24* 41 BILIRUBIN TOTAL mg/dL 0.4 0.7 TOTAL PROTEIN g/dL 4.2* 6.5 ALBUMIN g/dL 2.5* 3.9 ALT Units/L 10 11 AST Units/L 20 19 Recent Labs Lab Units 08/03/22 1726 PH ART 7.31* PO2 ARTERIAL POC mmHg 147* HCO3 ART POC mmol/L 21 IMAGING (Most recent) NEURO IMAGING: PHYSICAL EXAM: General: NAD HEENT: Mucous membranes moist, sclera anicteric Cardiac: RRR, no M/R/G Pulmonary: Even, unlabored respirations. Symmetric chest rise and fall. Lungs clear to auscultationanterior krause. Abdomen: Non-distended in appearance, bowel sounds present, soft/non-tender to palpation. No massesor HSM. Ext: No peripheral edema or digital cyanosis Skin: No rashes or lesions NEURO EXAM Mental Status Eyes open to voice, regards, follows some commands, oriented to self per choice. Cranial Nerves PERRL, EOMI, VFFTC, Face taped, tongue midline, +corneals/cough/gag Motor RUE 3/5, LUE 5/5 RLE triple flexes to stim and LLE 5/5 NEUROLOGICAL Meds: Atorvastatin 80 mg daily PRN Tylenol Ventriculostomy: No data recorded EVD Output: # LMCA occlusion s/p TNK and MT, TICI 2B # L cervical ICA Stenosis -- Neuro checks per TNK/ MT protocol then Q1hr -- BP goal <175/100 -- SMART -- A1C, LDL -- TTE with bubble for stroke workup -- atorvastatin 80 mg/day # Anxiety -- Hold home Alprazolam CARDIOVASCULAR and HEME Meds: none EKG: V-paced # Hypotension -- Etiology unclear: could be baseline BP vs component of hypovolemia given slight hemodilution on initial CBC -- BP 68/31 in the field when EMS arrived, then 90/45 when she arrived at OSH. -- Has a documented history of HTN in cardiology clinic notes however BP at the time of office visit 90/60's -- s/p 2L bolus at OSH ED -- Will hold home cardiac regimen at this time -- TTE --MAP > 60 -- required 1 L NS in the OR for SBP in the 60's # Atrial Fibrillation, chronic -- Per cardiology note on 07/18/22 she was to continue taking Eliquis 5mg BID however unclear if continuing to take, will clarify with home pharmacy -- Telemetry -- K>4, Mg >2 -- currently V-paced # CAD s/p AR # SSS s/p pacemaker # HFrEF -- Follows with Dr Hernandez [facility] Cardiology -- Has Biotronik pacemaker placed 07/2018 mode DDD with rate set at 70 BPM -- Last interrogated 07/02/2022: 60% battery life remaining, demonstrated ???100% Afib burden?? -- Last TTE documented 12/2019: mild global LV hypokinesis with EF 40% -- Home regimen: Furosemide 20mg daily, Spironolactone 25mg daily, Entresto 24/26mg BID -- ED notes mention Plavix as a home medication, but this is not documented in the cardiology clinic note, will call office/pharmacy in the am to clarify -- Repeat TTE as above -- Trend troponins until peaked # HLD -- LDL on previous PCP visit was 139 however after thorough discussion with psychologist social she refused any anti-lipid medication -- Start Atorvastatin 80mg daily given new CVA -- New lipid panel pending # Anemia -- CBC daily -- Hgb >7 # Elevated troponin -- 140-> 172 -- likely 2/2 demand ischemia -- Secondary to vasopressors for BP augmentation -- Monitor on telemetry -- trend troponin -- NNICU repletion protocol: K>4, Mg >2 PULMONARY Resp Min: 10 Max: 24 SpO2 Min: 93 % Max: 100 % End Tidal CO2: 30 Ventilator settings: AC/VC 14/350/30/5 CXR: pending Secretions: none Meds: Peridex BID # Airway protection s/p intubation -- f/u admission ABG and adjust vent settings -- f/u admission cxr -- ABG and CXR daily -- Peridex, elevated HOB and oral care for VAP prevention -- PSV as tolerated RENAL Meds: none # Hypomagnesemia -- Repleted Mg GI and ENDO Meds: Colace BID Senna BID Pepcid daily PRN Zofran Diet: NPO Diet IV fluids: none Flushes: none Last BM: [employer] # Nutrition -- NPO # GI prophylaxis -- pepcid daily while intubated INFECTION RELEVANT/MOST RECENT MICRO LAB DATA: Blood cultures: none Respiratory cultures: none Urinalysis/Urine culture: unremarkable Meds: none # No active issues -- CBC daily -- crowder culture for temp >38.5 ACCESS Lines PIV x3 A-line # 7 ETT 21 @ [facility] 08/03 VTE Prophylaxis Last Venous Doppler: none Prophylaxis: SCDs CODE STATUS: Full Code Disposition: [facility] Alice Yoo NP Cosigned by Minh Fernando MD PhD at 08/08/2022 1:01 PM CDT documented in this encounter Procedure Notes * Cee Mccallum, WOOD FINISHER APPRENTICE - 08/08/2022 2:36 PM CDTAssociated Order(s): WOOD FINISHER APPRENTICE EVALUATE AND TREAT VIDEOFLUOROSCOPIC SWALLOW STUDY Speech-Language Pathology: Videofluoroscopic Study of Swallow (VFSS/MBS) HPI/PMH 82y/o female with PMH of CAD, AR, SSS s/p Biotronik pacemaker, Atrial fibrillation (previously on Eliquis, s/p AV node ablation 2018), HLD, HTN, CHF. She is admitted to the NNICU with acute expressive aphasia and RIGHT-sided weakness with witnessed onset at 1305 5/. 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 She is now s/p TNK and MT with TICI 2B, 1 pass aspiration, admitted toNNICU for further care. Respiratory/Intubation Status: intubated 08/03-; currently on room air Imaging:hCT 08/04: 1. No acute intracranial hemorrhage. No large acute territory infarct. 2. Previously described focal hyperdensity within the left ICA terminus is better seen on prior study. CXR 08/03: Mild basilar atelectasis seen with possible tiny pleural. No pneumothorax is seen. Trace pulmonary edema is noted. No pneumonia. Precautions: fall, GENNY, aspiration Current Diet Order: NPO Baseline Feeding Status: Regular General Information Abena Giron 08/08/22 WOOD FINISHER APPRENTICE Received On: 08/08/22 General Observations: Pt was seen sitting upright in radiology chair. Alert and agreeable to exam. Reason for Referral: further define swallow physiology Pain Score: 0 - No pain If pain >4, was RN notified? N/A Patient Stated Goal/Comments: none stated Clinical Impression & Professional Recommendations Diet Solids Recommendation: Pureed Diet Liquids Recommendations: Thin/regular Recommended Form of Medications: Crushed, With puree Compensatory Strategies/Modifications: Slow rate, Single sips, Small bites, Alternate solids and liquids Postural Recommendations: Upright Assistance with feeding/swallowing: Assist with aggressive oral hygiene prior to po, One to one assist with meals Specialty Instructions: good oral care 2-3x/day including teeth brushing (gums and tongue) with suction while upright at 90 and with 100% assistance to improve the oral biome and reduce the risk of aspiration related complications (i.e., PNA) Overall Clinical Impression/Additional Information: 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 However, this was noted to fully revert back into the pharyngeal space upon completion of the swallow. No penetration observed with puree or solids. No aspiration occurred with any consistency during the exam. Trace to mild valleculae and pyriform sinus residue present across consistencies. Residue cleared with repeat swallow. Of note, coughing occurred during the exam in the absence of penetration or aspiration Assessment Details & Results Purpose and Procedure of Videofluoroscopic Study of Swallow: Videofluoroscopic Study of Swallow completed to assess oropharyngeal swallow function and safety/efficiency of the swallow so that diet recommendations can be made. This test is completed in conjunction with Radiology. Results of this test are indicative of performance at the time of the exam. Standard procedure is in lateral view at 90 degrees. Consistencies Administered: Thin liquids, Purees, Solids Administered consistencies contain barium product. Thin Liquids: Laryngeal Penetration: Present Aspiration Present: No Penetration Aspiration Scale-Thin: 2-Material enters the airway, remains above the vocal folds and is ejected from the airway Purees: Laryngeal Penetration: None Aspiration Present: No Penetration Aspiration Scale-Puree: 1-Material does not enter airway Solids: Laryngeal Penetration: None Aspiration Present: No Penetration Aspiration Scale-Solids: 1-Material does not enter airway MBSImp: MBSImp Results: Lip closure : 3-Escape progressing to mid-chin Tongue Control with Bolus Hold: 1-Escape to lateral buccal cavity/floor of mouth Bolus Preparation/Mastication : 2-Disorganized chewing/mashing with solid pieces of bolus unchewed Bolus Transport/Lingual Motion : 3-Repetitive/disorganized tongue motion Oral Residue: 2-Residue collection on oral structures Initiation of Pharyngeal Swallow : 3-Bolus head in pyriforms Soft Palate : 0-No bolus between soft palate and pharyngeal wall Laryngeal Elevation : 1-Partial superior movement of thyroid cartilage with partial approximation of arytenoids to epiglottic petiole Anterior Hyoid Excursion: 1-Partial anterior movement Epiglottic Movement: 1-Partial inversion Laryngeal Vestibular Closure: 1-Incomplete, narrow column of air/contrast in laryngeal vestibule Pharyngeal Stripping Wave: 1-Present but diminished Pharyngeal Contraction (AP view only): Not assessed, No AP view Pharyngoesophageal Segment Opening : 1-Partial distension/partial duration, partial obstruction of flow Tongue Base Retraction : 2-Narrow column of contrast or air between tongue base and posterior pharyngeal wall Pharyngeal Residue : 2-Collection of residue within or on pharyngeal structures Esophageal Clearance (upright position): Not assessed, No AP view Dysphagia Outcome and Severity Scale: Dysphagia Outcomes and Severity Scale: 5 Mild dysphagia Levels 1 & 2 on the REGINALDO indicate need for nonoral nutrition. Treatment Treatment was not provided this date. Please reference care plan for treatment goals and details, if indicated. 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 * Cee Mccallum SLP - 08/08/2022 8:01 AM CDT Speech-Language Pathology: Clinical Bedside Swallow HPI/PMH 82y/o female with PMH of CAD, AR, SSS s/p Biotronik pacemaker, Atrial fibrillation (previously on Eliquis, s/p AV node ablation 2018), HLD, HTN, CHF. She is admitted to the NNICU with acute expressive aphasia and RIGHT-sided weakness with witnessed onset at 1305 08/03. 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 She is now s/p TNK and MT with TICI 2B, 1 pass aspiration, admitted toNNICU for further care. Respiratory/Intubation Status: intubated 08/03-; currently on room air Imaging:hCT 08/04: 1. No acute intracranial hemorrhage. No large acute territory infarct. 2. Previously described focal hyperdensity within the left ICA terminus is better seen on prior study. CXR 08/03: Mild basilar atelectasis seen with possible tiny pleural. No pneumothorax is seen. Trace pulmonary edema is noted. No pneumonia. Precautions: fall, GENNY, aspiration Current Diet Order: NPO Baseline Feeding Status: Regular General Information Abena Giron 08/08/22 General Observations: Pt was seen sitting upright in bed. Alert and agreeable to evaluation. Daughters at bedside. Pain Score: 5 - Moderate pain If pain >4, was RN notified? Yes Patient Stated Goal/Comments: none stated Clinical Impression & Professional Recommendations Diet Solids Recommendation: NPO (pending MBS) Diet Liquids Recommendations: NPO for liquids (pending MBS) Recommended Form of Medications: Feeding tube Postural Recommendations: Upright Assistance with feeding/swallowing: Assist with aggressive oral hygiene prior to po Specialty Instructions: good oral care 2-3x/day including teeth brushing (gums and tongue) with suction while upright at 90 and with 100% assistance to improve the oral biome and reduce the risk of aspiration related complications (i.e., PNA) Dysphagia Diagnosis: Suspect oral-pharyngeal dysphagia Overall Clinical Impression/Additional Information: Oral mechanism examination significant for R side facial droop, R tongue deviation. Pt presented with trials of ice chips, thin liquids, and puree.Coughing observed with thin liquids, suspicious for aspiration. Instrumental swallow assessment indicated to further define swallow physiology prior to initiation of oral diet. Recommend pt remain NPO except ice chips pending MBS. Assessment Details & Results Consistencies Administered: Ice chips, Thin liquids, Purees MASA: Downs Assessment of Swallowing Ability (MASA) Alertness: Alert Cooperation: Cooperative Auditory Comprehension: Follows ordinary conversation with little difficulty Respiration: Chest clear Respiratory Rate (for swallow): Able to control breath rate for swallow Aphasia: Mild difficulty finding words or expressing ideas Apraxia: Speech accurate after trial and error/minor searching movements Dysarthria: Speech intelligible but obviously defective Saliva: No abnormality detected Lip Seal: Unilaterally weak/poor maintenance Tongue Movement: Mild impairment in range Tongue Strength: Unilateral weakness Tongue Coordination: Mild incoordination Gag: No gag (did not assess) Palate: No abnormality detected Cough Reflex: No deficit noted Voluntary Cough: No abnormality detected Voice: No abnormality detected Trach: No trach Oral Preparation: Lip or tongue seal, bolus escape Bolus Clearance: Significant clearance, minimal residue Oral Transit: Delay > 1 second Pharyngeal Phase: Mildly restricted laryngeal elevation, Slow initiation Pharyngeal Response: Cough before, during, or after swallow MASA Score: 166 Plan WOOD FINISHER APPRENTICE Frequency of Services during current admission: Pending instrumental assessment WOOD FINISHER APPRENTICE Recommendation (Add'l Services): Defer at this time (pending MBS) Further Assessment/Follow up Indicated: Recommendations: Follow-up videofluoroscopic swallowing study Next Visit Plan:instrumental evaluation Please reference care plan for treatment goals, if indicated. Discharge Summary Statement If this is the last swallow therapy visit, this serves as the discharge summary. * Judy Antunez, WILDA - 08/06/2022 2:10 PM CDT Speech-Language Pathology: Clinical Bedside Swallow HPI/PMH HPI/PMH: 82y/o female with PMH of CAD, AR, SSS s/p Biotronik pacemaker, Atrial fibrillation (previously on Eliquis, s/p AV node ablation 2018), HLD, HTN, CHF. She is admitted to the NNICU with acute expressive aphasia and RIGHT-sided weakness with witnessed onset at 1305 08/03. She was found to havea LEFT M1 occlusion by CTA Head/Neck. She is now s/p TNK and MT with TICI 2B, 1 pass aspiration, admitted to NNICU for further care. Respiratory/Intubation Status: intubated 08/03-; currently on room air Imaging:hCT 08/04: 1. No acute intracranial hemorrhage. No large acute territory infarct. 2. Previously described focal hyperdensity within the left ICA terminus is better seen on prior study. CXR 08/03: Mild basilar atelectasis seen with possible tiny pleural. No pneumothorax is seen. Trace pulmonary edema is noted. No pneumonia. Precautions: fall, GENNY, aspiration Current Diet Order: NPO Baseline Feeding Status: regular diet with regular liquids per pt's daughter report General Information Abena Giron 08/06/22 General Observations: Pt seen sitting upright in the bed. Pt initially agreeable to ST, but as session progressed, pt became drowsy and began declining to participate in assessment despite cues from her daughters at bedside. Suspect significantly impaired expressive language. Pain Score: 0 - No pain If pain >4, was RN notified? N/A Patient Stated Goal/Comments: Pt unable to state goals/comments this date. Clinical Impression & Professional Recommendations Diet Solids Recommendation: NPO Diet Liquids Recommendations: NPO for liquids, Ice chips only (sparingly with RN only) Recommended Form of Medications: Feeding tube Postural Recommendations: Upright (with ice chips) Specialty Instructions: (Please assist pt with oral care 2-3 times a day, including teeth brushing (gums and tongue) to improve the oral biome and reduce the risk of aspiration related complications (i.e., PNA) Dysphagia Diagnosis: Suspect oral-pharyngeal dysphagia Overall Clinical Impression/Additional Information: Pt positioned upright in bed for PO trials. Oral-[facility] exam significant for right facial droop, lingual deviation to the right, reduced labial seal,lingual weakness, and lingual incoordination. Pt accepted trials of ice chips, thins via tsp/cup edge/straw. Pt declined to accept trials of puree. Pt intermittently demo'd cough in response to thin liquid trials, suggestive of penetration/aspiration. Pt to remain NPO at this time, OK for ice chipssparingly with RN only for comfort. ST ongoing. Assessment Details & Results Consistencies Administered: Ice chips, Thin liquids, Purees MASA: Downs Assessment of Swallowing Ability (MASA) Alertness: Fluctuates Cooperation: Fluctuating cooperation Auditory Comprehension: Follows simple conversation with repetition Respiration: Sputum upper airway/other condition Respiratory Rate (for swallow): Able to control breath rate for swallow Aphasia: No functional speech/sounds/single words Apraxia: Unable to assess Dysarthria: Unable to assess Saliva: Frothy/expectorated Lip Seal: Mild impairment/occasional leakage Tongue Movement: Incomplete movement Tongue Strength: Unilateral weakness Tongue Coordination: Gross incoordination Gag: No gag (did not assess) Palate: No spread or elevation (did not assess) Cough Reflex: Weak reflexive cough Voluntary Cough: Attempt, bovine Voice: Mild impairment/slight huskiness Trach: No trach Oral Preparation: Lip or tongue seal, bolus escape Bolus Clearance: Significant clearance, minimal residue Oral Transit: Delay > 1 second Pharyngeal Phase: Mildly restricted laryngeal elevation, Slow initiation Pharyngeal Response: Cough before, during, or after swallow MASA Score: 132 Dysphagia: Severe dysphagia (<138) Aspiration Risk: Severe aspiration risk (<140) Plan WOOD FINISHER APPRENTICE Frequency of Services during current admission: Pending re-evaluation WOOD FINISHER APPRENTICE Recommendation (Add'l Services): Defer at this time (pending further assessment) Further Assessment/Follow up Indicated: Recommendations: Ongoing speech therapy Next Visit Plan:re-evaluate at the bedside Additional Referrals: N/A Please reference care plan for treatment goals, if indicated. Discharge Summary Statement If this is the last swallow therapy visit, this serves as the discharge summary. * Radha Tamayo SLP - 08/05/2022 1:03 PM CDT Speech-Language Pathology: Clinical Bedside Swallow HPI/PMH HPI/PMH: 82y/o female with PMH of CAD, AR, SSS s/p Biotronik pacemaker, Atrial fibrillation (previously on Eliquis, s/p AV node ablation 2018), HLD, HTN, CHF. She is admitted to the NNICU with acute expressive aphasia and RIGHT-sided weakness with witnessed onset at 1305 08/03. She was found to havea LEFT M1 occlusion by CTA Head/Neck. She is now s/p TNK and MT with TICI 2B, 1 pass aspiration, admitted to NNICU for further care. Respiratory/Intubation Status: intubated 08/03-; currently on room air Imaging:hCT 08/04: 1. No acute intracranial hemorrhage. No large acute territory infarct. 2. Previously described focal hyperdensity within the left ICA terminus is better seen on prior study. CXR 08/03: Mild basilar atelectasis seen with possible tiny pleural. No pneumothorax is seen. Trace pulmonary edema is noted. No pneumonia. Precautions: fall, GENNY, aspiration Current Diet Order: NPO Baseline Feeding Status: regular diet with regular liquids per pt's daughter report General Information Abena Driscolldwin 08/05/22 General Observations: Pt seen sitting upright in a chair with left wrist restraint. Pt alert and attempting to follow some simple commands with max cues and repetition; however, pt inconsistent in ability to follow simple commands. Pt appeared to demonstrate significant expressive language deficitsand with only single verbal utterance, No . No other attempts at verbal communication this date. Pain Score: (pt unable to report numeric value for pain; RN present) If pain >4, was RN notified? Yes Patient Stated Goal/Comments: Pt unable to state goals/comments this date. However, following PO trials, pt continued to gesture at throat and continue to repeat swallow. When asked if she felt as ifPO was sticking in her throat, she consistently nodded her head to indicate yes. Pt also appeared hesitant to accept PO given difficulty. Clinical Impression & Professional Recommendations Diet Solids Recommendation: NPO Diet Liquids Recommendations: NPO for liquids. Oral swabs for comfort Recommended Form of Medications: Feeding tube Specialty Instructions: (Please assist pt with oral care 2-3 times a day, including teeth brushing (gums and tongue) to improve the oral biome and reduce the risk of aspiration related complications (i.e., PNA) Dysphagia Diagnosis: Suspect oral-pharyngeal dysphagia Overall Clinical Impression/Additional Information: Pt was repositioned upright to 90 degrees. Oral-mech exam was remarkable for significant right facial droop, lingual deviation to the right upon protrusion, incomplete labial seal, lingual weakness, and lingual incoordination. Pt was presented with trials of ice chips, thins via teaspoon, cup edge, and straw, and purees and demonstrated inconsist ent coughing following all consistencies, suggestive of penetration/aspiration. Also suspect pharyngeal residue given pt's report of globus sensation (see above for details). Mild oral residue observed following all PO trials. Incomplete labial seal resulting in consistent anterior spillage of thinliquid from oral cavity. Assessment Details & Results Consistencies Administered: Ice chips, Thin liquids, Purees MASA: Downs Assessment of Swallowing Ability (MASA) Alertness: Alert Cooperation: Cooperative Auditory Comprehension: Follows simple conversation with repetition Respiration: Sputum upper airway/other condition Respiratory Rate (for swallow): Able to control breath rate for swallow Aphasia: No functional speech/sounds/single words Apraxia: Unable to assess Dysarthria: Unable to assess Saliva: No abnormality detected Lip Seal: Mild impairment/occasional leakage Tongue Movement: Incomplete movement Tongue Strength: Unilateral weakness Tongue Coordination: Gross incoordination Gag: No gag (did not assess) Palate: No spread or elevation (unable to visualize) Cough Reflex: Weak reflexive cough Voluntary Cough: Attempt, bovine Voice: Mild impairment/slight huskiness Trach: No trach Oral Preparation: Lip or tongue seal, bolus escape Bolus Clearance: Significant clearance, minimal residue Oral Transit: Delay > 1 second Delay consistency: Thin liquids, Purees Pharyngeal Phase: Mildly restricted laryngeal elevation, Slow initiation Pharyngeal Response: Cough before, during, or after swallow MASA Score: 137 Dysphagia: Severe dysphagia (<138) Aspiration Risk: Severe aspiration risk (<140) Plan WOOD FINISHER APPRENTICE Frequency of Services during current admission: Pending re-evaluation WOOD FINISHER APPRENTICE Recommendation (Add'l Services): Defer at this time Further Assessment/Follow up Indicated: Recommendations: (Swallow re-evaluation) Next Visit Plan:re-evaluate at the bedside Additional Referrals: PT/OT Please reference care plan for treatment goals, if indicated. Discharge Summary Statement If this is the last swallow therapy visit, this serves as the discharge summary. documented in this encounter Consult Notes * Jhony Sunshine MD - 08/06/2022 10:46 AM CDTAssociated Order(s): IP CONSULT TO CARDIOLOGY Cardiology Consult Note - General Cardiology Patient Name: Abena Giron : 1940 Date of Service: 08/06/22 Requesting Attending: Adryan Bailon MD Reason for Consult: Acute CHF / transition to outpatient care HPI Ms Abena Giron is an 82 year-old woman with history of HTN, HLD, CAD s/p JOI to mid LCx (07/01/13), HFrEF (40% -> 20% on TTE 08/05/12), SSS and paroxysmal AF s/p AVJN ablation and DC-PPM (Biotronik, implanted 07/30/18 with RA lead revision on 09/14/18 done at [facility]), non-morbid obesity (BMI 30), GENNY non compliant with CPAP, PAD and carotid artery stenosis who presented to [facility] on 08/03/22 with R si ded hemiparesis, R face weakness, and aphasia found to have a L MCA M1 segment ischemic CVA s/p mechanical thrombectomy (08/03/22). General Cardiology has been consulted for recommendations on a newly reduced LVEF. Ms Giron was in her usual state of health, however while eating lunch around 1pm on 08/03/22 she developed acute onset R sided hemiparesis, R sided facial weakness, and aphasia. EMS was called and she was reportedly hypotensive to 68/31 on their arrival. She was initially taken to [facility] to evaluation for stroke. Her BP's improved to 109/89 with [address] Head showed a large hyperdense MCA without hemorrhage, then subsequent CTA Head/Neck showed complete occlusion of theM1 segment of the L MCA. There were also carotid stenoses in the proximal LICA (80%) and proximal SKYLAR (50%). Ms Giron was then transferred to [facility] for tPA and thrombectomy. Ms Giron had an AR in 2013 requiring JOI to mid LCx performed at [facility]. Subsequently shedeveloped atrial fibrillation and tachy-josue syndrome. She had been trialed on Amiodarone and Metoprolol but these were discontinued due to side effects (extreme nausea, extreme fatigue, lightheadedn ess). Ultimately because she was intolerant of these medications, options including Sotalol or Tikosyn vs AVJ RFA with PPM implantation were reviewed. Ms Mack states she is very sensitive to medications so did not want to try other options and instead elected for AVJ ablation and DC-PPM implantation. Her subsequent device interrogations have shown 100% AF burden with 85-95% RV pacing. Review of Systems: Review of systems as per HPI and, otherwise all other systems are negative. PMHX: has a past medical history of Adiposity, Aortic aneurysm (HCC), Arthritis, Atrial fibrillation (CMS/HCC) (HCC), CHF (congestive heart failure) (CMS/HCC) (HCC), Colon polyp, Depression, Diverticulosis, Dysphagia, Gastroesophageal reflux disease, History of loop recorder, OTHER MEDICAL, OTHER MEDICAL, OTHER MEDICAL, OTHER MEDICAL, Hyperlipidemia, Hypertension, Myocardial infarction (CMS/HCC) (HCC), Sleep apnea, and Vertigo. PSHX: has a past surgical history that includes Other surgical history (Right, 1979); Cholecystectomy (1980); Other surgical history; Other surgical history (2015); Other surgical history (2015); Cataract extraction w/ intraocular lens implant (Bilateral); Cardiac pacemaker placement; Abdominal surgery; Eye surgery; and Skin biopsy. Family Hx: family history includes Breast cancer in her child; COPD in her father; Cancer in her brother; Dementia in her father and mother; Depression in her brother, father, and mother; Hypertension in her brother; Other in her mother and sister; Other (age of onset: 75) in her sister. Social Hx: reports that she quit smoking about 48 years ago. Her smoking use included cigarettes. She has never used smokeless tobacco. She reports that she does not use drugs. No alcohol history on file. Allergies: Allergies Allergen Reactions Phenobarbital Hallucinations Codeine Rash, [...] (See comments) severe heart pain Diltiazem Itching Home Medications: HOME MEDICATIONS : ALPRAZolam (XANAX) 0.25 mg tablet apixaban (ELIQUIS) 5 mg tablet artificial tears (SYSTANE) 0.3 % gel ascorbic acid (VITAMIN C) 1,000 mg tablet cholecalciferol (VITAMIN D-3) 2,000 unit tablet cyanocobalamin (Vitamin B-12) 100 mcg tablet Entresto 24-26 mg tablet fexofenadine (WALESKA) 180 mg tablet fluticasone propionate (FLONASE) 50 mcg/actuation nasal spray furosemide (LASIX) 20 mg tablet spironolactone (ALDACTONE) 25 mg tablet Current Medications: aspirin, 325 mg, feeding tube, Daily atorvastatin, 40 mg, feeding tube, Daily [Held by Provider] docusate, 100 mg, feeding tube, BID enoxaparin, 40 mg, subcutaneous, Daily-2100 losartan, 25 mg, feeding tube, Daily metoprolol tartrate, 6.25 mg, feeding tube, BID [Held by Provider] senna, 8.8 mg, feeding tube, BID Objective Vital Signs: 24hr Min/Max: Temp Min: 36.8 ??C (98.2 ??F) Max: 38 ??C (100.4 ??F) Pulse Min: 69 Max: 80 BP Min: 80/69 Max: 181/70 Resp Min: 13 Max: 25 SpO2 Min: 93 % Max: 98 % Most Recent: Vitals: 08/06/22 0700 BP: 151/75 Pulse: 74 Resp: 18 Temp: SpO2: 96% Intake/Output: Intake/Output Summary (Last 24 hours) at 08/06/2022 1046 Last data filed at 08/06/2022 0700 Gross per 24 hour Intake 1185 ml Output 430 ml Net 755 ml Physical Exam: General: laying in bed in NAD, accompanied by daughters at bedside HEENT: NCAT, MMM, anicteric, NGT in place Neck: supple, no JVD appreciated Lungs: non-labored breathing, CTAB Heart: RRR, normal S1/S2, no M/R/G's Abdomen: +BS, soft, NT, ND Extremities: WWP, trace symmetric LE edema, 2+ DP/PT/Radial pulses bilaterally Neurologic: A&Ox3, no focal deficits appreciated Psych: Frustrated speech and communication due to aphasia Lab/Radiology/Diagnostic Review: Recent Labs Lab Units 08/05/22234508/04/22210908/03/22195608/03/22 1726 08/03/22 1551 08/03/22 1350 HEMOGLOBIN, POC -- -- -- < > -- -- HEMOGLOBIN g/dL 11.7* 11.4* 11.5* -- 9.6* 13.0 HEMATOCRIT % 36.2 34.1* 34.8* -- 29.9* 40.3 HEMATOCRIT POC -- -- -- < > -- -- WBC K/cumm 10.1* 10.6* 5.9 -- 7.9 6.3 PLATELETS K/cumm 173 192 170 -- 116* 185 < > = values in this interval not displayed. Recent Labs Lab Units 08/05/22234508/04/22210908/03/22 2100 08/03/221956 SODIUM mmol/L 146* 142 141 140 POTASSIUM PLASMA mmol/L 4.5 4.2 4.2 4.2 CHLORIDE mmol/L 110 111* 109 109 CO2 mmol/L ANIONGAP mmol/L 8 6 9 8 BUN SERUM mg/dL 13 12 11 12 CREATININE mg/dL 0.67 0.80 0.69 0.69 CALCIUM mg/dL 8.8 8.3* 7.9* 8.4* MAGNESIUM mg/dL 2.0 2.1 1.8 1.8 Recent Labs Lab Units 08/03/22 2100 ALBUMIN g/dL 3.4* ALK PHOS Units/L 35* AST Units/L 26 ALT Units/L 13 BILIRUBIN TOTAL mg/dL 0.5 Recent Labs Lab Units 08/03/22195608/03/22 1548 08/03/22 1350 APTT sec 27 -- 28 INR 1.3* 1.4* 1.3* Recent Labs Lab Units 08/03/22195608/03/22 1726 PH ART 7.38 7.31* PCO2 ART mmHg 36 -- PO2 ART mmHg 166* -- PO2 ARTERIAL POC mmHg -- 147* BASE EXC ART mmol/L -3 -- Cultures: Lab Results Component Value Date MICROBIOLOGY 05/16/2017 Final Report: Insignificant growth based on current clinical standards. MICROBIOLOGY Final Report: No growth 05/16/2017 I personally reviewed the Telemetry images with the following findings: V-paced rhythm with frequent intermittent PVCs I personally reviewed the ECG images with the following findings: V-paced rhythm TTE (08/05/22): SUMMARY: Frequent PVCs. Normal LV volume, mass. Severe global LV systolic dysfunction (LVEF 20%). Dyssynchronous LV contraction c/w RV pacing. Indeterminate diastolic function. Normal AV. Mild MR. Normal LA size. Normal RV size with mild hypokinesis. Mild TR. PASP 45 mmHg. Dilated IVC c/w elevated RAP. Wire in RA/RV. Abdominal aortic atherosclerosis. No definite LV thrombus. No images for comparison. PPM Device Check (09/19/21): - Battery Life: 60% - DDD-CLS with backup HR 70bpm - 100% atrial burden; mean HR in AT/AF = 75 bpm - RV paced 86% of time Assessment/Plan Ms Abena Giron is an 82 year-old woman with history of HTN, HLD, CAD s/p JOI to mid LCx (07/01/13), HFrEF (40% -> 20% on TTE 08/05/12), SSS and paroxysmal AF s/p AVJN ablation and DC-PPM (Biotronik, implanted 07/30/18 with RA lead revision on 09/14/18 done at [facility]), non-morbid obesity (BMI 30), GENNY non compliant with CPAP, PAD and carotid artery stenosis who presented to [facility] on 08/03/22 with R si ded hemiparesis, R face weakness, and aphasia found to have a L MCA M1 segment ischemic CVA s/p mechanical thrombectomy (08/03/22). Pertinent Medical History: # SSS and Paroxysmal AF s/p AVJ ablation & DC-PPM (Biotronik) # Modifiable CVD Risk Factors: HTN, HLD, Obesity, PAD, MELANI, GENNY not on CPAP Active Inpatient Issues: # Frequent PVCs # HFrEF with Newly Reduced LVEF (40% Dec 2019 -> 20% on 08/05/22) # L MCA Territory Ischemic CVA s/p Mechanical Thrombectomy (08/03/22) General Cardiology was consulted for recommendations on management of a newly reduced LVEF. TTE (08/05/22): LVEF 20% with severe global LV systolic dysfunction, dyssynchronous LV contraction c/w RV pacing, normal RV size and mild systolic hypokinesis, mild MR, mild TR, Estimated PASP 45mmHg.Dilated IVC c/w elevated RAP. hsTrops: 172 -> 230 -> 225. No CP symptoms. Global TTE changes. No ischemic changes on EKG. Etiology of her reduced LVEF is unclear but could be related to chronic RV pacing since PPM implantation vs related to PVC burden vs underlying CAD. No evidence of active ischemia, will defer ischemic evaluation at this time. HFrEF: Home Regimen (Dr. Hernandez on 07/18/22): LD Entresto BID, Many 25, and Lasix 20 daily. - recommend PO Lasix 40mg BID - continue Losartan 25mg daily - continue Metoprolol tartrate 6.25mg BID, will eventually switch to succinate - recommend starting Spironolactone 12.5mg daily - please paul check Farxiga 10mg daily and Jardiance 10mg daily; if affordable, will plan to startone of these medications SSS & AF: - recommend starting IV Heparin standard nomogram when safe in regards to risk of hemorrhagic conversion of recent acute CVA - when no further invasive tests/procedures planned can switch back to Eliquis 5mg BID - Metoprolol as above - D/C Amiodarone Signed: Jhony Sunshine MD Exhaust Emissions Automotive Technician 10:46 AM 08/06/22 Cosigned by Briseyda Toney MD at 08/06/2022 2:35 PM CDT Associated attestation - Briseyda Toney MD - 08/06/2022 2:35 PM CDT Attending Documentation I have seen and examined the patient on 08/06/22. I agree with the findings and plan of care as documented in the resident's/fellow's note. 82F with CAD, heart failure with last EF 40%, on GDMT, admitted with acute MCA stroke. Now found tohave EF 20%, global dysfunction. Given that she is hemodynamically stable with a BP in the 150s, had no antecedent chest pain or HF symptoms, and had a very low-level troponin elevation at admission,would not pursue invasive angiography at this point. Would restart GDMT, recheck echo in 4-6 weeks,if EF remains low could consider ischemic evaluation. Supplementary Attestation Today, I am treating the patient for heart failure which is in severe exacerbation, progression, orexperiencing treatment side effects as evidenced by newly depressed ejection fraction, as describedin the note. Independently interpreted test ECG, telemetry, echo which shows RV pacing, frequent PVCs; echo withdepressed EF, global through apex appears more dysfunctional in some views, mild valvular disease. Discussed the risk/benefit of coronary angiography procedure/surgery with the patient as described in the note. Briseyda Durant MD 08/06/2022 2:30 PM * Pankaj Lombardi III, RN - 08/05/2022 1:48 PM CDTAssociated Order(s): DOCK BOSS CONSULT Smart Note for Stroke Patient presents from: other [facility] Arriving by: EMS To: ED Patient is an inpatient in [address] with a clinical stroke diagnosis of left ischemic stroke. Patient was last known well at August 02, 2022 when he/she was noted with symptoms starting on July of: rt. Sided weakness/rt. Facial droop IV TNK given: Yes Location: outside [facility] [place] intervention: Yes thrombectomy Patient stated goals: Patient hopes to prevent another stroke and regain independence. Recommendations: SMART will assess for discharge planning and stroke education. SMART Education Stroke warning signs Discussed risk factors: hypertension atrial fibrillation/flutter elevated cholesterol age greater than 55 CAD Secondary stroke prevention instruction includes:Medication compliance Blood pressure monitoring Maintain regular physician appointments Stroke education provided to: patient with patient's four daughter at bedside. DVT prophylaxis includes:SCD's in place To contact the SMART nurse call [phone] Business cards left with education packet for additional questions Database consent information: verbal consent for stroke database given consent in person consent obtained from patient. * Brent Mcarthur RD - 08/04/2022 12:43 PM CDTAssociated Order(s): IP CONSULT TO NUTRITION SERVICES Nutrition Assessment Reason for Assessment: Consult/Referral and TF Assessment Encounter Date: 08/04/22 12:43 PM Patient is a 82 y.o. female with chief complaint of acute R-sided weakness. LOS is 1 days. HPI: Pt presents w/ hx of CAD, AR, SSS s/p Biotronik pacemaker, Atrial fibrillation (previously on Eliquis, s/p AV node ablation 2018), HLD, HTN, CHF who presents to the NNICU with acute L MCA occlusion s/p TNK and MT with TICI 2B, 1 pass aspiration. 08/04: Pt remains intubated, NGT placed and plan to initiate enteral nutrition. Objective Past Medical History: Diagnosis Date Adiposity obesity [...] Atrial Fibrillation: Cardiovascular Intervention (ablation) SKIN BIOPSY Social History Tobacco Use Smoking status: Former Types: Cigarettes Quit date: 1974 Years since quittin.3 Smokeless tobacco: Never Substance and Sexual Activity Drug use: No Sexual activity: Defer Alcohol Use: Not on file Family History Problem Relation Age of Onset Other Mother Angina; Cause of : Angina Dementia Mother Dementia; Depression Mother Depression; COPD Father COPD; Cause of : COPD Dementia Father Dementia; Depression Father Depression; Other Sister 75 DM, CAD; Other Sister Valve Replacement; Cancer Brother Cancer; Depression Brother Depression; Hypertension Brother Hypertension; Breast cancer Child Anthropometrics: Wt Readings from Last 3 Encounters: 08/03/22 72.1 kg (158 lb 15.2 oz) 07/18/22 69.4 kg (153 lb) 08/28/21 70.3 kg (155 lb) Anthropometrics Weight: 72.1 kg (158 lb 15.2 oz) Admission Weight : 72.1 kg Weight Change: 2.69 kg (5.95 lbs) IBW/kg (Calculated) : 47.6 kg Height: 154.9 cm (5' 1 ) Weight in (lb) to have BMI = 25: 132 BMI (Calculated): 30 Nutrition Needs Calculations: Calculated Energy Needs Using Equations Weight: 72.1 kg (158 lb 15.2 oz) Height: 154.9 cm (5' 1 ) Minute Ventilation (L/min): 8.1 L/min Estimated Protein Needs Type of Weight Used for Estimated Protein : [place]iner Protein Needs Based on g/k.2 Total Protein Estimated Needs (gm): 57.12 Kcal/kg Type of Weight Used for Estimated Kcals: Current Kcal/k Total Kcal/kg Estimated Needs : 1586.2 Estimated Fluid Needs Type of Weight Used for Estimated Fluid Needs: [place] Fluid Needs Based on : 25 ml/kg Total Fluid Estimated Needs: 1190 Vital Signs: BP: (!) 70/60 Temp: 37.3 ??C (99.1 ??F) Pulse: 75 Resp: 16 SpO2: 100 % Medications: Scheduled Meds: aspirin, 325 mg, feeding tube, Daily [START ON 08/05/2022] atorvastatin, 40 mg, feeding tube, Daily docusate sodium, 100 mg, oral, BID Or docusate, 100 mg, feeding tube, BID enoxaparin, 40 mg, subcutaneous, Daily-2100 senna, 1 tablet, oral, BID Or senna, 8.8 mg, feeding tube, BID Continuous Infusions: PRN Meds: acetaminophen sodium chloride 0.9% ondansetron Lab Review: Sodium Date Value Ref Range Status 08/03/2022 141 135 - 145 mmol/L Final Potassium, pl Date Value Ref Range Status 08/03/2022 4.2 3.3 - 4.9 mmol/L Final BUN Date Value Ref Range Status 08/03/2022 11 8 - 25 mg/dL Final Creatinine Date Value Ref Range Status 08/03/2022 0.69 0.60 - 1.10 mg/dL Final Phosphorus, pl Date Value Ref Range Status 08/03/2022 3.8 2.3 - 4.5 mg/dL Final Albumin Date Value Ref Range Status 08/03/2022 3.4 (L) 3.5 - 5.0 g/dL Final Magnesium Date Value Ref Range Status 08/03/2022 1.8 1.4 - 2.5 mg/dL Final Calcium Date Value Ref Range Status 08/03/2022 7.9 (L) 8.5 - 10.3 mg/dL Final Comment: Repeated and Verified HDL Date Value Ref Range Status 08/03/2022 33 (L) >=40 mg/dL Final Comment: Interpretive Data Ages < or = 19 years Acceptable: >45 mg/dL Borderline low: 40-45 mg/dL Low: <40 mg/dL Ages > or = 20 years Desirable: >or= 60 mg/dL Low: <40 mg/dL Literature References: 1. Expert Panel on Integrated Guidelines for Cardiovascular Health and Risk Reduction in Children and Adolescents. Pediatrics 2011;128:S213 2. NCEP Expert Panel. Circulation 2004;110:227 Current Interpretive Data was last revised on 2017. ALT Date Value Ref Range Status 08/03/2022 13 7 - 45 Units/L Final AST Date Value Ref Range Status 08/03/2022 26 10 - 45 Units/L Final Alk phos Date Value Ref Range Status 08/03/2022 35 (L) 40 - 130 Units/L Final Lab Results Component Value Date HGBA1C 6.0 (H) 08/03/2022 HDL 33 (L) 08/03/2022 LDLCALC 98 08/03/2022 CHOL 146 08/03/2022 TRIG 77 08/03/2022 Nursing Assessment: Intake/Output Summary (Last 24 hours) at 08/04/2022 1243 Last data filed at 08/04/2022 0700 Gross per 24 hour Intake 803.31 ml Output 925 ml Net -121.69 ml Gastrointestinal Gastrointestinal (WDL): Exceptions to WDL Abdomen Inspection: Soft Bowel Sounds (All Quadrants): Active Palpation: Soft, No guarding Last BM Date: ([facility]) Passing Flatus: Yes GI Symptoms: None Last BM Date: ([facility]) Elvis Scale Score: 10 Skin Integrity: Puncture Dietary Orders (From admission, onward) Start Ordered 08/04/22 1242 Diet, Tube Feeding With Tray Jevity 1.5 dolores (via NGT per pump continuous); 45 (Initiate at 10 mL/hr, increase by 10 mL Q4 hrs to goal of 45 mL/hr x24 hrs.); 24 (hrs); 60 (mL); Water; Every 4 hours Diet effective now Comments: Follow Aspiration Precautions, elevate HOB Monitor BMP w/ Mg/Phos daily Question Answer Comment Tube Feeding Formula: Jevity 1.5 dolores via NGT per pump continuous Tube Feeding Continuous (mL/hr): 45 Initiate at 10 mL/hr, increase by 10 mL Q4 hrs to goal of 45 mL/hr x24 hrs. Duration (hr): 24 hrs Tube Feeding Flush (mL): 60 mL Flush Type: Water Flush Frequency: Every 4 hours 08/04/22 1242 08/03/221935 NPO Diet Diet effective now 08/03/221937 Impression: RD consulted for TF assessment. Pt is intubated, has NGT in place, KUB read is pending however rough-read shows tube likely within gastric body. Per MD, plan to start TF today. I/O; -129, -875 mL UOP BS are active, last BM was prior to admission. Note orders for colace BID and senna BID. Noted labs 08/03; Na 141, K 4.2, BUN 11, Cr 0.69, Ca 7.9, Mg 1.8, and PO4 3.8. Pt repleted 2g Mag sulfate in the last 24 hrs. HgbA1c of 6% (08/03). BG/24 hrs; 82, 160, 158 mg/dL. No insulin ordered. Lipid Profile 08/03; Total Cholesterol 146, HDL 33, LDL 98, and TG 77. Pt admits at 158 lbs, noted some c/f 5 lb weight gain in 1 month, no pitting edema noted on physical exam. Wt Readings from Last 6 Encounters: 08/03/22 72.1 kg (158 lb 15.2 oz) 07/18/22 69.4 kg (153 lb) 08/28/21 70.3 kg (155 lb) 01/31/20 73 kg (161 lb) 10/19/19 75.8 kg (167 lb) 07/23/19 78.5 kg (173 lb) NUTRITION DIAGNOSIS Nutrition Diagnosis 1: Inadequate oral intake Related to: NPO status Evidenced by: Need for full tube feeding INTERVENTION Pt is NPO w/ NGT in place for enteral access. Once tube is cleared to use; Recommend Jevity 1.5 via NGT per pump continuous; Initiate at 10 mL/hr, increase by 10 mL Q4 hrs togoal of 45 mL/hr x24 hrs. Flush with 60 mL free water Q4 hrs. Follow Aspiration Precautions, elevate HOB Monitor BMP w/ Mg/Phos daily TF at goal will provide; 1,620 kcal (22.5 kcal/kg BW), 69 g P (1.4 g/kg IBW), 233 g CHO, and 821 mLfree water via formula. Additional flushes will provide a total of 1,181 mL water/day (25 mL/kg IBW). RD will continue to monitor plan of care, TF tolerance, nutrition-related labs, BM, and weight changes for further nutrition intervention as indicated. GOALS / MONITORING: Goals: Adequate nutrition to meet estimated needs by next assessment, Tolerance of enteral feeding at goal rate Interventions: Communication, Enteral nutrition administration Monitoring and Evaluation: Blood glucoses, Electrolyte changes, Hydration status, I/O, Labs, Stool patterns, TF tolerance, Weight changes Brent Mcarthur MS, RD, [facility], N [phone] [employer]-Weekend: [phone] * Chet Perez MD PhD - 08/03/2022 4:10 PM CDTAssociated Order(s): IP CONSULT TO NEUROLOGY Hyperacute Stroke Team - HASTE Consult Note Initial information: Narrative: Ms. Giron is a 82 y.o. female who presents as an acute tPA page. Requesting provider: Kathy Gomez MD Reason for consult: Thrombectomy page s/p TNK at OSH Page time (24h format): 08/03/2022 1620 Last known well Date Last Known Well : 08/03/22 Time Last Known Well: 1305 Discovery of Symptoms - Date: 08/03/22 Discovery of Symptoms - Time: 1306 (08/03/22 1545) Chief complaint: Right sided weakness and global aphasia HPI: Abena Giron is a 82 year old woman with a PMH of atrial fibrillation (prescribed Eliquis, unclear if compliant), HTN, HLD, and CAD (s/p stents) on DAPT who presents after receiving TNK at [facility] as a thrombectomy page. Per the patient's family at bedside, the patient was having lunch with one of her daughters when her daughter noticed that she started leaning towards the right. She subsequently became mute and developed a left gaze preference. Her last known normal was 1305. She was[facility], there her NIHSS was reportedly a [address] physician[address] Dr. Gomez evaluated the patient by telestroke and recommended a CTH + CTA head and neck. She had a hyperdense left MCA sign on CTH and a left M1 occlusion on CTA. She was a GO for TNK and received the drug at 1423.She was then transferred to [facility] for thrombectomy evaluation. On arrival her NIHSS was a 16 (see below). On basic labs her Hgb had dropped from 13->9.6, and she had had concomitant drop in platelets (185->115) and her CMP had findings suggestive of a hyperchloremic metabolic acidosis. Overall it was unclear if 1. There was lab error/artifact causes the abnormal lab values, 2. The patient hadreceived large amounts of crystalloids at the OSH causing hemodilution and the metabolic acidosis or 3. The patient had a bleed. To exclude possibility #3 she had a CTH which on my read had no obvious signs of bleeding and re-demonstrated her hyperdense left M1. She also got a CT CAP with contrast with no signs of bleeding per radiology (it did show pulmonary edema). The read was delayed because radiology was never called to be told this scans were emergent. The patient was GO for thrombectomy (before the read of CAP was available) and taken to the thrombectomy suite. Stroke risk factors: Atrial Fibrillation, CAD, Hyperlipidemia, and Hypertension Notable home meds (i.e., anticoagulation): apixaban (eliquis) Past medical history, past surgical history, current medications, allergies, family history and social history were reviewed, and are noted at the end of this note. Vitals: 08/03/22 1611 BP: Pulse: 69 Resp: 18 Temp: SpO2: 98% NIH Stroke Scale Interval: Transfer (tx from OSH.) Level of Consciousness (1a.): Alert, keenly responsive LOC Questions (1b.): Answers neither question correctly LOC Commands (1c.): Performs neither task correctly Best Gaze (2.): Forced deviation Visual (3.): No visual loss Facial Palsy (4.): Normal symmetrical movements (ELIZABET) Motor Arm, Left (5a.): No drift Motor Arm, Right (5b.): Some effort against gravity Motor Leg, Left (6a.): No drift Motor Leg, Right (6b.): No effort against gravity Limb Ataxia (7.): Absent Sensory (8.): Normal, no sensory loss Best Language (9.): Mute, global aphasia Dysarthria (10.): Severe dysarthria, patient's speech is so slurred as to be unintelligible in the absence of or out of proportion to any dysphasia, or is mute/anarthric Extinction and Inattention (11.) (Formerly Neglect): No abnormality Total: 16 (08/03/22 4268) Cisse labs (FSBG, INR, platelets, Xa): Lab Results Lab Value Date/Time GLUCOSE 150 08/03/2022 1350 GLUCOSE 107 (H) 02/15/2019 1218 INR 1.3 (H) 08/03/2022 1350 HCT findings: Hyperdense ICA terminus, no bleeding visible (my read) Thrombolytic decision: TNK decision: GO (OSH) TNK decision time (24 hour format): 1420 (OSH) TNK bolus time (24 hour format): 1436 BP prior to tPA bolus: See OSH documentation Reason for tPA delay (>30 mins [id number], if applicable): See OSH documentation Thrombectomy decision: LVO on CTA?: Yes, Location: MCA, M1 segment CTA read time/fellow: Done at OSH , Lillie Mckinley M.D. 5321 CTP: Core volume: N/A, CT perfusion not performed mL Penumbra volume: N/A, CT perfusion not performed mL Mismatch ratio: N/A, CT perfusion not performed Baseline functional status: MRS 0: The patient has no symptoms. Intervention: GO Neuro-IR contact time: Called at (hh:mm): 1630 , patient in suite at 1655 due to need for extra scans as detailed in HPI. Hyperacute MRI Indication: Not performed Findings: N/A, not performed Wake-up stroke: Time of symptom discovery (24h format): N/A, patient not a candidate for WAKE-UP protocol DWI-FLAIR mismatch: N/A, patient not a candidate for protocol MRI read time/fellow: N/A, patient was not a candidate for protocol Physical Examination: BP 101/80 Pulse 69 Temp 36.3 ??C (97.4 ??F) (Axillary) Resp 18 Ht 154.9 cm (5' 1 ) LMP (LMP Unknown) SpO2 98% BMI 28.91 kg/m?? GEN: NAD HEENT: NC/AT, MMM CV: Regular rate and rhythm PULM: No increased work of breathing ABD: Soft, nontender, nondistended EXT: Warm and well-perfused SKIN: Warm and dry Neurologic Examination: Mental status: Awake, regards examiner on the left, neglects the right side. Speech: Globally mute, can follow some simple commands with repetitive stimuli Cranial Nerves: II: Pupils equal and reactive bilaterally, visual krause full and no obvious lower facial weakness, cannot assess the rest. Motor: Left= 5/5 on LUE, LLE. Right side: RUE: 2/5, RLE: 2/5 Reflexes: Deferred Sensory: Unable to perform Coordination Gait: Unable to perform Inattention: Right sided hemineglect (appears to be present due to gaze preference). Assessment & Plan: Abena Giron is a 82 year old woman with a PMH of atrial fibrillation (prescribed Eliquis, unclear if compliant), HTN, HLD, and CAD (s/p stents) on DAPT who presents after receiving TNK at [facility] as a thrombectomy page. The patient is GO for MT, she will need repeat labs to ensure that the values are real. If they arethen she will need a workup for metabolic acidosis. Moreover, she has pulmonary edema on CT CAP that needs follow up. Disposition: Thrombectomy then NNICU Case discussed with Stroke chief resident Hoang Sandra MD The HASTE team will sign off due to patient admission to the stroke/NNICU service. For acute neurologic change and repeat stroke assessment, please activate the acute stroke pager at [phone]. For a non-emergent questions please call the inpatient stroke phone at [phone]. Chet Gunter MD PhD 08/03/2022, 4:12 PM Subjective Past Medical History: Past Medical History: Diagnosis Date Adiposity obesity [...] 2015 Sleep apnea Vertigo Past Surgical History: Past Surgical History: Procedure Laterality Date ABDOMINAL SURGERY CARDIAC PACEMAKER PLACEMENT CATARACT EXTRACTION W/ INTRAOCULAR LENS IMPLANT Bilateral CHOLECYSTECTOMY 1980 Cholecystectomy EYE SURGERY OTHER SURGICAL HISTORY Right 1980 partial oopherectomy OTHER SURGICAL HISTORY heart cath with stent 2013 [place]/[facility] OTHER SURGICAL HISTORY 2016 a.fib: loop recorder implanted OTHER SURGICAL HISTORY 2016 Atrial Fibrillation: Cardiovascular Intervention (ablation) SKIN BIOPSY Medications: Current Facility-Administered Medications on File Prior to Encounter Medication Dose Route Frequency Provider Last Rate Last Admin [COMPLETED] ioversoL (OPTIRAY 350) syringe 100 mL 100 mL intravenous Once in imaging ThomasS. Kovacs MD 100 mL at 08/03/22 1414 [COMPLETED] ondansetron (ZOFRAN) injection 4 mg 4 mg intravenous Once Harjit Kovacs MD 4 mg at08/03/22 1407 [COMPLETED] ondansetron (ZOFRAN) injection 4 mg 4 mg intravenous Once Harjit Kovacs MD 4 mg at08/03/22 1505 [COMPLETED] sodium chloride 0.9% bolus 1,000 mL 1,000 mL intravenous Once Harjit Kovacs MD Stopped at 08/03/22 1455 [COMPLETED] sodium chloride 0.9% bolus 1,000 mL 1,000 mL intravenous Once Harjit Kovacs MD Continued after Discharge at 08/03/22 1510 [COMPLETED] sodium chloride 0.9% flush 10 mL 10 mL intra-catheter Once Harjit Kovacs MD 10 mL at 08/03/22 1428 Followed by [COMPLETED] tenecteplase (TNKase) injection for STROKE 17 mg 0.25 mg/kg intravenous Once Harjit Kovacs MD 17 mg at 08/03/22 1428 Followed by [COMPLETED] sodium chloride 0.9% flush 10 mL 10 mL intra-catheter Once Harjit Kovacs MD 10 mL at 08/03/22 1428 Current Outpatient Medications on File Prior to Encounter Medication Sig Dispense Refill ALPRAZolam (XANAX) 0.25 mg tablet Take 1 tablet (0.25 mg total) by mouth 2 (two) times a day as needed for anxiety (Patient not taking: Reported on 08/28/2021) 60 tablet 1 apixaban (ELIQUIS) 5 mg tablet take 1 tablet by oral route 2 times every day 0 0 artificial tears (SYSTANE) 0.3 % gel Apply 1 drop to both eyes 4 (four) times a day as needed (Patient not taking: Reported on 07/18/2022) ascorbic acid (VITAMIN C) 1,000 mg tablet Take 2 tablets (2,000 mg total) by mouth daily cholecalciferol (VITAMIN D-3) 2,000 unit tablet take 1 tablet by oral route every day 90 3 cyanocobalamin (Vitamin B-12) 100 mcg tablet Take 1 tablet (100 mcg total) by mouth daily Entresto 24-26 mg tablet (Patient not taking: Reported on 08/28/2021) fexofenadine (WALESKA) 180 mg tablet Take 1 tablet (180 mg total) by mouth daily fluticasone propionate (FLONASE) 50 mcg/actuation nasal spray Administer 2 sprays into each nostrildaily 16 g 3 furosemide (LASIX) 20 mg tablet Take 1 tablet (20 mg total) by mouth daily 90 tablet 1 spironolactone (ALDACTONE) 25 mg tablet Take 1 tablet (25 mg total) by mouth daily 90 tablet 1 Allergies: Allergies Allergen Reactions Phenobarbital Hallucinations Codeine Rash, [...] (See comments) severe heart pain Diltiazem Itching Family History: Family History Problem Relation Age of Onset Other Mother Angina; Cause of : Angina Dementia Mother Dementia; Depression Mother Depression; COPD Father COPD; Cause of : COPD Dementia Father Dementia; Depression Father Depression; Other Sister 75 DM, CAD; Other Sister Valve Replacement; Cancer Brother Cancer; Depression Brother Depression; Hypertension Brother Hypertension; Breast cancer Child Social History: Social History Tobacco Use Smoking status: Former Types: Cigarettes Quit date: 1974 Years since quittin.3 Smokeless tobacco: Never Substance and Sexual Activity Drug use: No Sexual activity: Defer Alcohol Use: Not on file Review of Systems: A complete ROS was unable to be performed due to the patient's emergent medical condition specifically due to global aphasia. documented in this encounter Nursing Notes * Kamlesh Lopes RN - 08/12/2022 10:14 AM CDT Attempted to call report to [facility] several times. Repeatedly left on hold and hung up on. Will attempt again after transport. * Luna Bhakta RN - 08/07/2022 12:43 AM CDT Patient transferred to [facility] on a new bed. surveillance system monitor on. All belongings sent with patient.Transfer NIHSS done at bedside with Dr. Sandoval. Report given to Fabienne SCHMIDT. Opportunity to ask questions provided. Call light in reach. Pure Wick plugged in. Bed alarm under patient. Patient joking and calm. Denies pain. documented in this encounter ED Notes * Rosita Hills RN - 08/03/2022 4:01 PM CDT Late note d/t coordination of care. Pt arrived to ED via EMS transfer from [facility] for higher acuity of care and possible thrombectomy. Per EMS, Pt arrived to OSH d/t sudden onset of right sided weakness and aphasia while at lunch with her family and witnessed by her family. LKN today around 1305. OSH NIHSS 23. NIHSS here at [facility] per neuro 16. Pt is A&OX4 at baseline and speaks but Pt is A&OX0, mute/aphasia and follows some commands. GCS 11. Per chart, OSH imaging dx M1 occlusion. Pt received TNK at OSH at 1428. SEE MAR/CHART. Per chart, Pt is on plavix. Hx pacemaker, SSS, AAA, a-fib, HTN. NAD otherwise. ED team and neuro team at bedside. Rosita Hills RN 08/03/22 1605 * Sachi Jackson MD - 08/03/2022 3:55 PM CDT HPI Chief Complaint Patient presents with Stroke banquet stewardess note: Abena Giron is a 82 y.o. female with PMH of afib off anticoagulation, aortic aneurysm, CHF, HLDhere with known M2 occlusion from OSH. Symptom onset at 1:05 pm while eating lunch with family. She developed right facial weakness with right upper extremity and right lower extremity weakness and global aphasia. Seen at OSH, given TNK at 2:30pm abd transferred for thrombectomy evaluation. ROS performed and negative except as documented above in HPI. Patient has a current medication list which includes the following long-term medication(s): alprazolam, cyanocobalamin, entresto, fluticasone propionate, furosemide, and spironolactone. Past Medical History: Diagnosis Date Adiposity obesity [...] Brother Hypertension; Breast cancer Child Social History Social History Narrative Agrees to blood/blood products: Y Agrees to blood/blood products: Y OBJECTIVE: BP 100/57 Pulse 69 Temp 36.3 ??C (97.4 ??F) (Axillary) Resp 14 Ht 154.9 cm (5' 1 ) Wt 72.1 kg (158 lb 15.2 oz) LMP (LMP Unknown) SpO2 100% BMI 30.03 kg/m?? Physical Exam: General: Patient is well appearing and appears to be nontoxic. Neuro: dense aphasia, L gaze deviation, unable to move L or R side but exam limited by aphasia. Appears to grimace to pain in LUE, LLE, and RLE. HEENT: Atraumatic. No nasal deformity. Optho: No scleral icterus. Neck/Back: Normal inspection and range of motion. Pulm: No respiratory distress. Cardiac: Normal rate and regular rhythm. Abdomen: Non-distended abdomen. Ext: Warm and well perfused. Skin: No rash on exposed skin. MDM Medical Decision Making Amount and/or Complexity of Data Reviewed Labs: ordered. Decision-making details documented in ED Course. Radiology: ordered. ECG/medicine tests: ordered. Risk Prescription drug management. Decision regarding hospitalization. Additional history provided by: EMS Prior external notes reviewed: OSH ED Abena Giron is a 82 y.o. female with PMH of afib off anticoagulation, aortic aneurysm, CHF, HLDhere with known M2 occlusion from OSH. Patient was nontoxic, stable, in no acute distress. Exam as above. Here with known M2 occlusion, s/p tpa for initial NIHSS of 23. Upon arrival, was evaluated by neurology and had NIHSS of 16. Here for possible thrombectomy. Concern for reperfusion IPH. DDx of hypotension: sepsis, hypovolemia, ACS. In consideration of the above differential diagnosis, the following orders were placed while the patient was in the Emergency Department. See ED course for pertinent results and imaging interpretation. Orders Placed This Encounter Procedures CTA/CTP Rapid Stroke (C) XR Chest 1 View CBC with auto differential Comprehensive metabolic panel Troponin I high-sensitivity series (baseline, 2hr, 4hr, 6hr) Urinalysis reflex to microscopic Type and screen Dysphagia Screen (prior to any PO intake) Weigh patient - Actual weight Continuous Pulse Oximetry when available Cardiorespiratory monitor when available DO NOT UNCHECK - ED banquet stewardess Standing Order: Stroke ECG 12 lead Saline lock IV Saline lock IV Patient requires admission for post tPA monitoring and post thrombectomy monitoring. ED Diagnoses: 1. Ischemic stroke (HCC) Attending Summary of Care ED Course as of 08/03/221950 Time: 08/03 1638 Comment: Teach resident note: Patient is an 82 year old female who presents to the emergency department for possible thrombectomy. Presented to OSH for stroke evaluation, found to have NIHSS 23 and left MCA occlusion. Here to be evaluated for thrombectomy. Likely go to IR then NNICU. By: Emanuel Awan MD Time: 08/03 1640 Value: Comprehensive metabolic panel(!!): Sodium 148(!) Potassium, pl 2.9(!) Chloride 124(!) CO2 18(!) Anion gap 6 BUN 8 Creatinine 0.50(!) Glucose 82 Calcium 5.2(!!) Bilirubin, total 0.4 Protein, pl 4.2(!) Albumin 2.5(!) Alk phos 24(!) ALT 10 AST 20 Comment: Suspect lab error/dilutional error. Will order repeat BMP and CBC. By: Sachi Jackson MD 1. Ischemic stroke (HCC) Sachi Jackson MD Resident 08/03/221950 Cosigned by Citlaly Crump MD at 08/04/2022 4:03 PM CDT Associated attestation - Citlaly Crump MD - 08/04/2022 4:03 PM CDT I have seen and examined the patient on 08/03/2022. I agree with the findings and plan of care as documented in the resident's note. * Villa Jaramillo RN - 08/03/2022 3:45 PM CDT Bed: [facility] Expected date: Expected time: Means of arrival: Comments: Abena Giron Morgan Paulette, BRAYAN 08/03/22 1545 documented in this encounter Miscellaneous Notes * Plan of Care - Andreia Krishna RN - 08/12/2022 12:34 AM CDT Goals: Clinical Goals for the Shift: Neuro check and vitals q8, turn q2, labs, sleep hygiene, prevent falland injury, promote rest and comfort Summary: Problem: Activity: Goal: Mobility will improve Outcome: [...] improve to fullest extent possible Outcome: Progressing Problem: Activity: Goal: Capacity to carry out activities will improve Outcome: Progressing Goal: Mobility will improve Outcome: Progressing Problem: Lack of Knowledge: Goal: Verbalization of understanding the information provided will improve Outcome: Progressing Problem: Lack of Knowledge: Goal: Ability to develop a pain control plan will improve Outcome: Progressing Goal: Ability to identify pain intensity on a pain scale and rate it consistently will improve Outcome: Progressing Goal: Ability to notify healthcare provider of pain before it becomes unmanageable or unbearable will improve Outcome: Progressing Problem: Medication: Goal: Satisfaction with pain management regimen will improve Outcome: Progressing Problem: Sensory: Goal: Ability to identify factors that increase the pain will improve Outcome: Progressing Goal: Pain level will decrease Outcome: Progressing Problem: Lack of [...] pain control plan will improve Outcome: Progressing * Plan of Care - Andreia Krishna RN - 08/10/2022 11:54 PM CDT Goals: Clinical Goals for the Shift: Neuro check and vitals q8, turn q2, labs, sleep hygiene, prevent falland injury, promote rest and comfort, covid test Summary: Problem: Activity: Goal: Mobility will improve Outcome: [...] improve to fullest extent possible Outcome: Progressing Problem: Health Behavior: Goal: Understanding of discharge needs will improve Outcome: Progressing Problem: Activity: Goal: Capacity to carry out activities will improve Outcome: Progressing Goal: Mobility will improve Outcome: Progressing Problem: Lack of Knowledge: Goal: Verbalization of understanding the information provided will improve Outcome: Progressing Problem: Lack of Knowledge: Goal: Ability to develop a pain control plan will improve Outcome: Progressing Goal: Ability to identify pain intensity on a pain scale and rate it consistently will improve Outcome: Progressing Goal: Ability to notify healthcare provider of pain before it becomes unmanageable or unbearable will improve Outcome: Progressing Problem: Medication: Goal: Satisfaction with pain management regimen will improve Outcome: Progressing Problem: Sensory: Goal: Ability to identify factors that increase the pain will improve Outcome: Progressing Goal: Pain level will decrease Outcome: Progressing Problem: Lack of [...] therapeutic regimen will improve Outcome: Progressing Problem: Infection Risk: [...] pain control plan will improve Outcome: Progressing * Plan of Fito - Russell Brooks RN - 08/10/2022 5:40 PM CDT Goals: Clinical Goals for the Shift: Neuro check and vitals q8, turn q2, labs, sleep hygiene, prevent falland injury, promote rest and comfort. Summary: Patient resting in bed, communicates needs with assistance, remians free of injury, deniespain, VS and NC remain stable. Problem: Activity: Goal: Mobility will improve Outcome: Progressing Problem: Lack of Knowledge: Goal: Understanding of ways to prevent future skin breakdown will improve Outcome: Progressing Problem: Nutritional: Goal: Dietary intake will improve Outcome: Progressing Problem: Skin Integrity: Goal: Risk for impaired skin integrity will decrease Outcome: Progressing * Plan of Care - Andreia Krishna RN - 08/10/2022 4:56 AM CDT Goals: Clinical Goals for the Shift: Neuro check and vitals q8, turn q2, labs, sleep hygiene, prevent falland injury, promote rest and comfort. Summary: Problem: Activity: Goal: Mobility will improve Outcome: [...] improve to fullest extent possible Outcome: Progressing Problem: Lack of Knowledge: Goal: Ability to develop a pain control plan will improve Outcome: Progressing Goal: Ability to identify pain intensity on a pain scale and rate it consistently will improve Outcome: Progressing Goal: Ability to notify healthcare provider of pain before it becomes unmanageable or unbearable will improve Outcome: Progressing Problem: Medication: Goal: Satisfaction with pain management regimen will improve Outcome: Progressing Problem: Sensory: Goal: Ability to identify factors that increase the pain will improve Outcome: Progressing Goal: Pain level will decrease Outcome: Progressing Problem: Lack of Knowledge: Goal: Ability to state ways to decrease the risk of falls will improve Outcome: Progressing Problem: Safety: Goal: Will remain free from falls Outcome: Progressing Goal: Will remain free from injury from falls Outcome: Progressing Goal: Will remain free from falls and injury in home environment Outcome: Progressing Problem: Lack of Knowledge: Goal: [...] pain control plan will improve Outcome: Progressing * Plan of Care - Russell Brooks RN - 08/09/2022 3:04 PM CDT Goals: Clinical Goals for the Shift: Neuro check and vitals q8, turn q2, labs, sleep hygiene, prevent falland injury, promote rest and comfort. Summary: Patient resting in bed, communicates needs with assistance, denies pain, remains free of injury, Nc and VS remain stable. Problem: Activity: Goal: Mobility will improve Outcome: Progressing Problem: Lack of Knowledge: Goal: Understanding of ways to prevent future skin breakdown will improve Outcome: Progressing Problem: Nutritional: Goal: Dietary intake will improve Outcome: Progressing Problem: Activity: Goal: Capacity to carry out activities will improve Outcome: Progressing Problem: Safety: Goal: Will remain free from falls Outcome: Progressing * Plan of Care - Yun Keenan RN - 08/09/2022 2:10 PM CDT CM spoke with the medical team and the patient is medically ready to discharge. Per [facility], the patient has been accepted for Friday, August 12, 2022 and will need a COVID test for Friday and EMS setup for Friday. Kimberly (liaison) spoke with the family and the patient has a discharge plan. CM will continue to follow for referrals or discharge planning needs. * Plan of Care - Andreia Krishna RN - 08/09/2022 6:36 AM CDT Goals: Clinical Goals for the Shift: Neuro check and vitals q8, turn q2, labs, sleep hygiene, prevent falland injury, promote rest and comfort. Summary: Problem: Activity: Goal: Mobility will improve Outcome: [...] improve to fullest extent possible Outcome: Progressing Problem: Activity: Goal: Capacity to carry out activities will improve Outcome: Progressing Goal: Mobility will improve Outcome: Progressing Problem: Lack of Knowledge: Goal: Verbalization of understanding the information provided will improve Outcome: Progressing Problem: Lack of Knowledge: Goal: Ability to develop a pain control plan will improve Outcome: Progressing Goal: Ability to identify pain intensity on a pain scale and rate it consistently will improve Outcome: Progressing Goal: Ability to notify healthcare provider of pain before it becomes unmanageable or unbearable will improve Outcome: Progressing Problem: Medication: Goal: Satisfaction with pain management regimen will improve Outcome: Progressing Problem: Sensory: Goal: Ability to identify factors that increase the pain will improve Outcome: Progressing Goal: Pain level will decrease Outcome: Progressing Problem: Lack of Knowledge: Goal: Ability to state ways to decrease the risk of falls will improve Outcome: Progressing Problem: Safety: Goal: Will remain free from falls Outcome: Progressing Goal: Will remain free from injury from falls Outcome: Progressing Goal: Will remain free from falls and injury in home environment Outcome: Progressing * Plan of Care - Citlaly Carroll RN - 08/08/2022 5:25 PM CDT Goals: Clinical Goals for the Shift: VSS, q8 neuro checks, sit in chair, Summary: * Consults, Subsequent - Jhony Sunshine MD - 08/08/2022 4:57 PM CDT Cardiology Progress Note - General Cardiology Patient Name: Abena Giron : 1940 Date of Service: 08/08/22 Requesting Attending: Adryan Bailon MD Reason for Consult: Acute CHF / transition to outpatient care Interval Events: - No acute events overnight Current Medications: aspirin, 325 mg, feeding tube, Daily enoxaparin, 40 mg, subcutaneous, Daily-2100 [START ON 08/09/2022] furosemide, 40 mg, feeding tube, Daily [START ON 08/09/2022] losartan, 12.5 mg, feeding tube, Daily metoprolol tartrate, 6.25 mg, feeding tube, BID ramelteon, 8 mg, feeding tube, Nightly rosuvastatin, 10 mg, feeding tube, Nightly spironolactone, 12.5 mg, oral, Daily Objective Vital Signs: 24hr Min/Max: Temp Min: 36.3 ??C (97.3 ??F) Max: 36.9 ??C (98.4 ??F) Pulse Min: 70 Max: 75 BP Min: 114/50 Max: 148/72 Resp Min: 16 Max: 18 SpO2 Min: 96 % Max: 98 % Most Recent: Vitals: 08/08/22 0755 BP: 148/72 Pulse: 75 Resp: 18 Temp: 36.5 ??C (97.7 ??F) SpO2: 96% Intake/Output: Intake/Output Summary (Last 24 hours) at 08/08/2022 1657 Last data filed at 08/08/2022 1000 Gross per 24 hour Intake 860 ml Output 900 ml Net -40 ml Physical Exam: General: well appearing in NAD, pleasant, conversational without dyspnea HEENT: NCAT, MMM, anicteric Neck: supple, no JVD appreciated Lungs: non-labored breathing, CTAB Heart: RRR, normal S1/S2, no M/R/G's Abdomen: +BS, soft, NT, ND Extremities: WWP, no LE edema, 2+ DP/PT/Radial pulses bilaterally Neurologic: A&Ox3, no focal deficits appreciated Psych: Normal mood and affect Lab/Radiology/Diagnostic Review: Recent Labs Lab Units 08/07/22195408/06/[id number]/05/22234508/04/22210908/03/221956 HEMOGLOBIN g/dL 12.8 11.1* 11.7* 11.4* 11.5* HEMATOCRIT % 38.4 34.8* 36.2 34.1* 34.8* WBC K/cumm 11.7* 12.3* 10.1* 10.6* 5.9 PLATELETS K/cumm 238 184 173 192 170 Recent Labs Lab Units 08/07/22195408/06/22234808/05/22234508/04/22210908/03/22 2100 SODIUM mmol/L 141 140 146* 142 141 POTASSIUM PLASMA mmol/L 3.8 4.0 4.5 4.2 4.2 CHLORIDE mmol/L 99 103 110 111* 109 CO2 mmol/L 32 31 28 25 23 ANIONGAP mmol/L 10 6 8 6 9 BUN SERUM mg/dL 16 12 13 12 11 CREATININE mg/dL 0.62 0.62 0.67 0.80 0.69 CALCIUM mg/dL 9.4 8.8 8.8 8.3* 7.9* MAGNESIUM mg/dL 2.1 1.8 2.0 2.1 1.8 Recent Labs Lab Units 08/03/22 2100 ALBUMIN g/dL 3.4* ALK PHOS Units/L 35* AST Units/L 26 ALT Units/L 13 BILIRUBIN TOTAL mg/dL 0.5 Recent Labs Lab Units 08/03/22195608/03/22 1548 08/03/22 1350 APTT sec 27 -- 28 INR 1.3* 1.4* 1.3* Recent Labs Lab Units 08/03/22195608/03/22 1726 PH ART 7.38 7.31* PCO2 ART mmHg 36 -- PO2 ART mmHg 166* -- PO2 ARTERIAL POC mmHg -- 147* BASE EXC ART mmol/L -3 -- Cultures: Lab Results Component Value Date MICROBIOLOGY 05/16/2017 Final Report: Insignificant growth based on current clinical standards. MICROBIOLOGY Final Report: No growth 05/16/2017 Assessment/Plan Ms Abena Giron is an 82 year-old woman with history of HTN, HLD, CAD s/p JOI to mid LCx (07/01/13), HFrEF (40% -> 20% on TTE 08/05/12), SSS and paroxysmal AF s/p AVJN ablation and DC-PPM (Biotronik, implanted 07/30/18 with RA lead revision on 09/14/18 done at [facility]), non-morbid obesity (BMI 30), GENNY non compliant with CPAP, PAD and carotid artery stenosis who presented to [facility] on 08/03/22 with R si ded hemiparesis, R face weakness, and aphasia found to have a L MCA M1 segment ischemic CVA s/p mechanical thrombectomy (08/03/22). Pertinent Medical History: # SSS and Paroxysmal AF s/p AVJ ablation & DC-PPM (Biotronik) # Modifiable CVD Risk Factors: HTN, HLD, Obesity, PAD, MELANI, GENNY not on CPAP Active Inpatient Issues: # Frequent PVCs # HFrEF with Newly Reduced LVEF (40% Dec 2019 -> 20% on 08/05/22) # L MCA Territory Ischemic CVA s/p Mechanical Thrombectomy (08/03/22) General Cardiology was consulted for recommendations on management of a newly reduced LVEF. TTE (08/05/22): LVEF 20% with severe global LV systolic dysfunction, dyssynchronous LV contraction c/w RV pacing, normal RV size and mild systolic hypokinesis, mild MR, mild TR, Estimated PASP 45mmHg.Dilated IVC c/w elevated RAP. hsTrops: 172 -> 230 -> 225. No CP symptoms. Global TTE changes. No ischemic changes on EKG. Etiology of her reduced LVEF is unclear but could be related to chronic RV pacing since PPM implantation vs related to PVC burden vs underlying CAD. No evidence of active ischemia, will defer ischemic evaluation at this time. HFrEF: Home Regimen (Dr. Hernandez on 07/18/22): LD Entresto BID, Anthony 25, and Lasix 20 daily. - increase Losartan 12.5mg -> 25mg daily - switch Metoprolol tartrate 6.25mg BID -> Metoprolol succinate 12.5mg daily - continue Spironolactone 12.5mg daily - please paul check Farxiga 10mg daily and Jardiance 10mg daily; if affordable, will plan to startone of these medications - continue PO Lasix 40mg daily SSS & AF: - recommend starting Eliquis 5mg BID when safe in regards to risk of hemorrhagic conversion of recent acute CVA - Metoprolol as above Ms Giron will need follow-up in General Cardiology clinic in 4-6 weeks. Thank you for this consult. We will sign-off at this time. Please do not hesitate to contact us if questions arise. Signed: Jhony Sunshine MD Ex[employer] Emissions Autom[employer] Technician 4:57 PM 08/08/22 Cosigned by Clay Traore MD at 08/09/2022 8:50 AM CDT Associated attestation - Clay Traore MD - 08/09/2022 8:50 AM CDT I have seen and examined the patient on 08/08/2022. I agree with the findings and plan of care as documented in the resident's/fellow's note.. * Hospital Course - Capri Curran MD - 08/08/2022 10:46 AM CDT Brief Patient Summary Ms. Giron is a 82 y.o. right handed woman with past medical history of CAD, AR, SSS s/p Biotronikpacemaker, Atrial fibrillation (previously on Eliquis but not currently, s/p AV node ablation 2018), HLD, HTN, CHF who initially presented with acute right sided hemiparesis, right facial weakness, and became mute. #Acute left MCA stroke s/p TNK and mechanical thrombectomy TICI 2B Stroke risk factors: Age > 55, hypertension, dyslipidemia, atrial fibrillation, and carotid artery stenosis Notable home medications (i.e., anticoagulation): Previously on Eliquis but has not been filling per pharmacy report Localization and etiology: Ms. Giron presents with right hemiparasis and global aphasia that localizes to the Left MCA territory. Etiologies highest on the differential for consideration per TOAST criteria include: [id number] embolism or cardioembolism. Cardioembolism is most likely as she has a pacemaker in her right ventricle causing dyssynchornous squeeze of her left ventricle which could lead to clot formation, though no definitive thrombi were seen on TTE. She was also found to have 80% stenosis of her left ICA therefore artery to artery embolism is also possible. She was a GO for TNK, and also a GO for thrombectomy, achieving TICI2B flow with 1 pass Pertinent Initial Work-Up: - Non-contrast head CT: hyperdense L MCA, no hemorrhage - CTA of the head and neck: L M1 cutoff; proximal L ICA stenosis estimated 80%, R ICA stenosis 50% - 4 vessel angiogram: left carotid stenosis 50% Work-up to identify risk factors for stroke included the following: - HbA1c 6.0%, LDL 68. - EKG on admission showed V paced rhythm at 68 - Telemetry monitoring throughout the admission showed paced rhythm - TTE showed EF 20%, dyssynchronous LV contraction 2/2 RV pacing, no definite thrombus Treatment/Disposition/Follow-Up The patient was started on atorvastatin 80 mg PO qHS (SPARCL trial). The current [place] [employer] guidelines recommend long-term treatment with a high-intensity statin even in patient's with LDL level <100, if tolerated. (The SPARCL trial, Alex et al. 2010, showed that statin treatment should not be titrated to LDL level.) Additionally, the patient was initially started on ASA 325 daily for secondary prevention (SPS3 trial: lacunar infarcts). She was transitioned to Eliquis 5mg BID on 08/10 after she passed her swallow test and there was no longer a need for G-tube procedure. She was also continued on Aspirin 81mg daily for her cardiovascular comorbidities. A SMART consult was performed. Disposition: Per PT/OT evaluation, the patient was discharged to [facility]. Follow-up: The patient will follow-up in the outpatient [facility]. The contact information of the clinic is listed below: [facility]) [address] [place] [address] Other medical problems addressed during this hospitalization: #Hyperlipidemia LDL on admission was 68. Goal LDL for secondary stroke prevention is <70. She has previously refused anti-lipid medication reporting feeling unwell on medicaiton and with muscle pain without weakness. # CAD s/p AR with stent placement (2013) # HFrEF (LVEF 20%, was LVEF 40% in 2019) She follows with Dr. Hernandez [facility] Cardiology - last seen 07/18/22 in office. Home regimen: Furosemide 20mg daily, Spironolactone 25mg daily, Entresto 24-26 mg BID ((not being filled). Her last TTE documented 12/2019: mild global LV hypokinesis with EF 40% which is further reduced this admission. (08/06 TTE showed Frequent PVCs. Normal LV volume, mass. Severe global LV systolic dysfunction (LVEF 20%). Dyssynchronous LV contraction c/w RV pacing. Indeterminate diastolic function. Cardiology was consulted during this admission and patient was ultimately discharged on: Lasix 40mg daily, Losartan 25mg daily, Metop XL 12.5mg daily, Spironolactone 12.5mg daily, and Farxiga 10mg daily. She was also continued on Aspirin 81mg daily. # Chronic atrial Fibrillation s/p AV node ablation (01/06/2019) # SSS s/p pacemaker Has [employer] Authentication pacemaker placed 07/2018 mode DDD with rate set at 70 BPM. Last interrogated 07/02/2022, which showed 60% battery life remaining, demonstrated ???100% Afib burden?? . Currently rate controlled without medications and V- paced. Per prior family reports, was prescribed Eliquis 5 mg BID and taking intermittently, however her pharmacy ([facility]) indicates she does not fill this medication and her daughter indicates she does not fill at other pharmacies. She was restarted on Eliquis on 08/10. # Troponemia, resolved Trop I hs peaked at 230 (105-->140-->230-->225) - no further trend. Likely secondary to demand ischemia in context of acute stroke, intubation however does have CAD with history of stent. # Several bilateral femoral artery stenosis, incidental finding # Left subclavian occlusion, incidental finding Subclavian finding noted on CTA. Femoral stenosis seen in diagnostic angiogram. Patient can follow up outpatient with PCP, or PCP can refer patient to vascular surgery. # Hx of Anxiety In past had Rx for alprazolam and reportedly took it rarely, this is not an active medication and not filled at pharmacy. Monitored clinically, avoided adding new medications that could confound neurologic exam Medication Changes During Admission - START Eliquis 5 mg BID - START Aspirin 81mg daily - CHANGE to Lasix 40mg daily - START Losartan 25mg daily - START Metop XL 12.5mg daily - CHANGE to Spironolactone 12.5mg daily - START Farxiga 10mg daily - STOP Entresto Disposition/Home Health Needs: IPR * Plan of Care - Andreia Krishna RN - 08/08/2022 2:26 AM CDT Goals: Clinical Goals for the Shift: neuro check, vital signs, labs, tube feedings, maintain aspiration precautions, sleep hygiene, Summary: Problem: Activity: Goal: Mobility will improve Outcome: [...] improve to fullest extent possible Outcome: Progressing Problem: Activity: Goal: Capacity to carry out activities will improve Outcome: Progressing Goal: Mobility will improve Outcome: Progressing Problem: Lack of Knowledge: Goal: Verbalization of understanding the information provided will improve Outcome: Progressing Problem: Lack of Knowledge: Goal: Ability to develop a pain control plan will improve Outcome: Progressing Goal: Ability to identify pain intensity on a pain scale and rate it consistently will improve Outcome: Progressing Goal: Ability to notify healthcare provider of pain before it becomes unmanageable or unbearable will improve Outcome: Progressing Problem: Medication: Goal: Satisfaction with pain management regimen will improve Outcome: Progressing Problem: Sensory: Goal: Ability to identify factors that increase the pain will improve Outcome: Progressing Goal: Pain level will decrease Outcome: Progressing Problem: Lack of Knowledge: Goal: Ability to state ways to decrease the risk of falls will improve Outcome: Progressing Problem: Safety: Goal: Will remain free from falls Outcome: Progressing Goal: Will remain free from injury from falls Outcome: Progressing Goal: Will remain free from falls and injury in home environment Outcome: Progressing * Plan of Care - Citlaly Carroll RN - 08/07/2022 5:11 PM CDT Goals: Clinical Goals for the Shift: VSS, remain free from falls, pain control , tube feedings Summary: * Consults, Subsequent - Jhony Sunshine MD - 08/07/2022 4:11 PM CDT Cardiology Progress Note - General Cardiology Patient Name: Abena Giron : 1940 Date of Service: 08/07/22 Requesting Attending: Adryan Bailon MD Reason for Consult: Acute CHF / transition to outpatient care Interval Events: - No acute events overnight - Feeling well this AM without any particular complaints Current Medications: aspirin, 325 mg, feeding tube, Daily enoxaparin, 40 mg, subcutaneous, Daily-2100 furosemide, 40 mg, feeding tube, BID DIURETIC losartan, 12.5 mg, oral, Daily metoprolol tartrate, 6.25 mg, feeding tube, BID rosuvastatin, 10 mg, oral, Nightly Objective Vital Signs: 24hr Min/Max: Temp Min: 36.2 ??C (97.2 ??F) Max: 36.9 ??C (98.4 ??F) Pulse Min: 69 Max: 75 BP Min: 87/51 Max: 160/72 Resp Min: 16 Max: 22 SpO2 Min: 86 % Max: 100 % Most Recent: Vitals: 08/07/22 1241 BP: 119/60 Pulse: 69 Resp: 18 Temp: SpO2: 96% Intake/Output: Intake/Output Summary (Last 24 hours) at 08/07/2022 1612 Last data filed at 08/07/2022 1400 Gross per 24 hour Intake 710 ml Output 2600 ml Net -1890 ml Physical Exam: General: well appearing in NAD, pleasant, conversational without dyspnea HEENT: NCAT, MMM, anicteric Neck: supple, no JVD appreciated Lungs: non-labored breathing, CTAB Heart: RRR, normal S1/S2, no M/R/G's Abdomen: +BS, soft, NT, ND Extremities: WWP, no LE edema, 2+ DP/PT/Radial pulses bilaterally Neurologic: A&Ox3, no focal deficits appreciated Psych: Normal mood and affect Lab/Radiology/Diagnostic Review: Recent Labs Lab Units 08/06/22234808/05/22234508/04/22210908/03/[id number]/03/22172508/03/22 1551 HEMOGLOBIN, POC -- -- -- -- < > -- HEMOGLOBIN g/dL 11.1* 11.7* 11.4* 11.5* -- 9.6* HEMATOCRIT % 34.8* 36.2 34.1* 34.8* -- 29.9* HEMATOCRIT POC -- -- -- -- < > -- WBC K/cumm 12.3* 10.1* 10.6* 5.9 -- 7.9 PLATELETS K/cumm 184 173 192 170 -- 116* < > = values in this interval not displayed. Recent Labs Lab Units 08/06/22234808/05/22234508/04/22210908/03/22 2100 08/03/221956 SODIUM mmol/L 140 146* 142 141 140 POTASSIUM PLASMA mmol/L 4.0 4.5 4.2 4.2 4.2 CHLORIDE mmol/L 103 110 111* 109 109 CO2 mmol/L 31 28 25 23 23 ANIONGAP mmol/L 6 8 6 9 8 BUN SERUM mg/dL 12 13 12 11 12 CREATININE mg/dL 0.62 0.67 0.80 0.69 0.69 CALCIUM mg/dL 8.8 8.8 8.3* 7.9* 8.4* MAGNESIUM mg/dL 1.8 2.0 2.1 1.8 1.8 Recent Labs Lab Units 08/03/222099 ALBUMIN g/dL 3.4* ALK PHOS Units/L 35* AST Units/L 26 ALT Units/L 13 BILIRUBIN TOTAL mg/dL 0.5 Recent Labs Lab Units 08/03/22195608/03/22 1548 08/03/22 1350 APTT sec 27 -- 28 INR 1.3* 1.4* 1.3* Recent Labs Lab Units 08/03/22195608/03/221725 PH ART 7.38 7.31* PCO2 ART mmHg 36 -- PO2 ART mmHg 166* -- PO2 ARTERIAL POC mmHg -- 147* BASE EXC ART mmol/L -3 -- Cultures: Lab Results Component Value Date MICROBIOLOGY 05/16/2017 Final Report: Insignificant growth based on current clinical standards. MICROBIOLOGY Final Report: No growth 05/16/2017 Assessment/Plan Ms Abena Giron is an 82 year-old woman with history of HTN, HLD, CAD s/p JOI to mid LCx (07/01/13), HFrEF (40% -> 20% on TTE 08/05/12), SSS and paroxysmal AF s/p AVJN ablation and DC-PPM (Biotronik, implanted 07/30/18 with RA lead revision on 09/14/18 done at [facility]), non-morbid obesity (BMI 30), GENNY non compliant with CPAP, PAD and carotid artery stenosis who presented to [facility] on 08/03/22 with R si ded hemiparesis, R face weakness, and aphasia found to have a L MCA M1 segment ischemic CVA s/p mechanical thrombectomy (08/03/22). Pertinent Medical History: # SSS and Paroxysmal AF s/p AVJ ablation & DC-PPM (Biotronik) # Modifiable CVD Risk Factors: HTN, HLD, Obesity, PAD, MELANI, GENNY not on CPAP Active Inpatient Issues: # Frequent PVCs # HFrEF with Newly Reduced LVEF (40% Dec 2019 -> 20% on 08/05/22) # L MCA Territory Ischemic CVA s/p Mechanical Thrombectomy (08/03/22) General Cardiology was consulted for recommendations on management of a newly reduced LVEF. TTE (08/05/22): LVEF 20% with severe global LV systolic dysfunction, dyssynchronous LV contraction c/w RV pacing, normal RV size and mild systolic hypokinesis, mild MR, mild TR, Estimated PASP 45mmHg.Dilated IVC c/w elevated RAP. hsTrops: 172 -> 230 -> 225. No CP symptoms. Global TTE changes. No ischemic changes on EKG. Etiology of her reduced LVEF is unclear but could be related to chronic RV pacing since PPM implantation vs related to PVC burden vs underlying CAD. No evidence of active ischemia, will defer ischemic evaluation at this time. HFrEF: Home Regimen (Dr. Hernandez on 07/18/22): LD Entresto BID, Many 25, and Lasix 20 daily. - change PO Lasix 40mg BID -> daily only - continue Losartan 25mg daily - continue Metoprolol tartrate 6.25mg BID, will consider uptitrating (PVC suppression) and eventually switch to succinate - recommend starting Spironolactone 12.5mg daily - please paul check Farxiga 10mg daily and Jardiance 10mg daily; if affordable, will plan to startone of these medications SSS & AF: - recommend starting IV Heparin standard nomogram when safe in regards to risk of hemorrhagic conversion of recent acute CVA - when no further invasive tests/procedures planned can switch back to Eliquis 5mg BID - Metoprolol as above - D/C Amiodarone Signed: Jhony Sunshine MD Ex[employer] E[employer] Autom[employer] Technician 4:12 PM 08/07/22 Cosigned by Briseyda Toney MD at 08/07/2022 5:00 PM CDT Associated attestation - Briseyda Toney MD - 08/07/2022 5:00 PM CDT Attending Documentation I have seen and examined the patient on 08/07/22. I agree with the findings and plan of care as documented in the resident's/fellow's note. Making good progress from a neurologic standpoint. BP remains somewhat labile. Agree with adding and titrating GDMT as tolerated. Given hemodynamic stability, no chest pain, negative troponin at presentation, will continue conservative management of depressed EF; if persistent at 4-6 weeks post-stroke would consider ischemic workup. Supplementary Attestation Today, I am treating the patient for acute stroke, newly depressed ejection fraction which is in severe exacerbation, progression, or experiencing treatment side effects as evidenced by ongoing neurodeficits, labile BP, as described in the note. Independently interpreted test telemetry which shows paced rhythm with high burden PVCs. Discussed the risk/benefit of coronary angiography procedure/surgery with the patient as described in the note. Will not pursue at this time as per above. Briseyda Durant MD 08/07/2022 4:55 PM * Plan of Care - Citlaly Carroll RN - 08/07/2022 12:28 PM CDT Goals: Clinical Goals for the Shift: VSS, remain free from falls, pain control , tube feedings Summary: * Plan of Care - Yun Keenan RN - 08/07/2022 8:38 AM CDT CM was contacted by Kimberly (liaison) from [facility] and the facility is following the patient at this time. CM will continue to follow for referrals or discharge planning needs. Per the medical team, the patient is not medically ready to discharge. Patient still has a NG tube and will need a follow up with speech. [facility] [address] [id number] * Significant Event - Alice Yoo NP - 08/06/2022 10:49 PM CDT NNICU TO Stroke NEUROLOGY HANDOFF TOOL Primary reason for ICU admission: Acute left MCA stroke secondary to left M1 occlusion s/p TNK and mechanical thrombectomy (08/03) Brief ICU HPI: 82 year-old woman with history of CAD with prior AR s/p stent (2014), tachy- josue syndrome and atrial fibrillation s/p AV node ablation in 2019 (prescribed Eliquis, non-compliant and not filling), SSS s/p Biotronik pacemaker, hypertension, HFrEF, and HLD (non-compliant with statin therapy) who presented 08/03 to [facility] via EMS with acute-onset of right-sided hemiparesis with right facial weakness and global aphasia/mutism 08/03 at 1305. Notably BP in field had reportedly been 68/31, given1 L LR and subsequently 90/45. NIHSS was 23 (2 Questions, 2 Commands, 2 Gaze, 2 FD, 4 RUE, 4 RLE, 3aphasia, 2 dysarthria, [address] extinction). CT Head demonstrated hyperdense LEFT MCA sign without hemorrhage and CTA demonstrated complete occlusion of the L M1 segment as well as bilateral ICA stenosis (RIGHT ICA >50%, LEFT ICA ~80%) though contrast bolus timing sub- optimal (majority of bolus presentin pulmonary arteries). Received TNK 08/03 at 14:28 and transferred to [facility] ED for mechanical thrombectomy evaluation.Upon arrival to [facility] ED NIHSS was 16 (2 Questions, 2 commands, 2 gaze, ELIZABET FD, 2 RUE, 3 RLE, 3 aphasia, 2 dysarthria). She had repeat labs checked which noted Hgb reduced at 9.6 (from 13.0) but other labs were abnormal including electrolyte abnormalities and reduced PLT which in retrospect raises suspicion of diluted/erroneous blood draw. Due to recently administered TNK and Hgb drop, she underwent repeat CT head (non-contrast) and CT C/A/P which was negative for hemorrhage. Subsequently taken to Neuro IR for mechanical thrombectomy. Right groin/femoral access unsuccessful followed by successful left femoral access and TICI 2B reperfusion achieved. ICU course significant for ventilator-associated agitation s/p precedex 08/03- 08/04. She only remained intubated to facilitate lying flat following manual compression closure of femoral access sites. She was weaned and extubated the morning of 08/04. Upon further review of her records and medication dispense history, the patient's pharmacy indicates that she has never received Eliquis nor Entresto at their pharmacy (filling there since 2021) and her family denies the possibility that she fills elsewhere, admitting also that she historically has not wished to take certain medications either due to perceived side effects or concerns for side effects she has issues with fillers . Active consultants: [facility] New findings that warrant follow-up and pending studies: TTE with Doppler (08/05/2022) Frequent PVCs. Normal LV volume, mass. Severe global LV systolic dysfunction (LVEF 20%). Dyssynchronous LV contraction c/w RV pacing. Indeterminate diastolic function. Normal AV. Mild MR. Normal LA size. Normal RV size with mild hypokinesis. Mild TR. PASP 45 mmHg. Dilated IVC c/w elevated RAP.. No definite LV thrombus. PERTINENT physical exam findings on day of transfer: Mental Status Awake and alert. Oriented to person and place with choices. She tracks and regards with preference on the left. Language Expressive > receptive aphasia. Follows central and some appendicular commands. She has minimal verbal output ( hungry ) and does not name or repeat. Cranial Nerves PERRL (OU 4mm > 3mm), right hemianopia by blink to threat, LEFT gaze preference but does cross midline. Right facial droop and rightward tongue deviation. Motor: Flaccid tone RUE/RLE. Does not participate in formal strength testing RUE - no spontaneous movement LUE grossly 5/5 RLE triple flexes to stim LLE brisk antigravity withdrawal Important changes to home medications: START ATORVASTATIN (patient with prior history of possible intolerance) START ASPIRIN HELD ELIQUIS (patient was not taking in outpatient setting) Medications to consider stopping prior to discharge: [] New antipsychotic (started for ICU delirium): [] Other: Major problems/Plans: # Left MCA stroke secondary to L M1/MCA occlusion s/p TNK and MT, TICI 2B (08/03) # L cervical ICA Stenosis (50% on angio) Completed Diagnostics -- CTA at OSH 08/03 with proximal left ICA stenosis estimated at 80% and right ICA stenosis estimated at 50%, subsequent angiogram with reported left carotid stenosis of 50% -- A1C 6.0, LDL 98 -- TTE with Doppler Frequent PVCs. Normal LV volume, mass. Severe global LV systolic dysfunction (LVEF 20%). Dyssynchronous LV contraction c/w RV pacing. Indeterminate diastolic function. Normal AV. Mild MR. Normal LA size. Normal RVsize with mild hypokinesis. Mild TR. PASP 45 mmHg. Dilated IVC c/welevated RAP.. No definite LV thrombus Treatment -- BP goal Normotension -- [facility] c/s - PT/OT and WOOD FINISHER APPRENTICE eval pending (post-stroke, swallow, aphasia) -- Continue aspirin and for secondary stroke prevention, timing of anticoagulation likely post stroke day 7 - 10 if neurologic examination is stable (will warrant conversation with patient and familyas historically non- compliant with Eliquis). -- Statin therapy: Atorvastatin 40 mg qHS, though of note patient has previously refused lipid lowering medications (will discuss with family) -- Defer discussions of carotid stenosis management to Stroke Neurology team # CAD s/p AR with stent placement (2013) # HFrEF (LVEF 20%, was LVEF 40% in 2019) She follows with Dr. Hernandez [facility] - last seen 07/18/22 in office. Home regimen: Furosemide 20mg daily, Spironolactone 25mg daily, Entresto 24-26 mg BID ((not being filled). Her last TTE documented 12/2019: mild global LV hypokinesis with EF 40% which is further reduced this admission. She will likely benefit from initiation and optimization of GDMT but will need to be weight against patient preference and family wishes. -- 08/06 TTE Frequent PVCs. Normal LV volume, mass. Severe global LV systolic dysfunction (LVEF 20%). Dyssynchronous LV contraction c/w RV pacing. Indeterminate diastolic function. Normal AV. Mild MR. Normal LA size. Normal RV size with mild hypokinesis. Mild TR. PASP 45 mmHg. Dilated IVC c/w elevated RAP.. No definite LV thrombus. -- Start Losartan 25mg Daily -- Start Metoprolol 6.25 BID -- Lasix 20mg IV x1 -- Consult Cardiology # Chronic atrial Fibrillation s/p AV node ablation (01/06/2019) # SSS s/p pacemaker -- Has Biotronik pacemaker placed 07/2018 mode DDD with rate set at 70 BPM -- Last interrogated 07/02/2022: 60% battery life remaining, demonstrated ???100% Afib burden?? -- Rate controlled without medications and V-paced -- Per prior family reports, was prescribed Eliquis 5 mg BID and taking intermittently, however herpharmacy ([facility]) indicates she does not fill this medication and her daughterindicates she does not fill at other pharmacies - Discussion of anticoagulation needed -- Telemetry -- K > 4, Mg > 2 #Hypotension Blood pressure in the field was 68/31, 90/45 at [place]. Initially responded to fluid boluses. Noted to have chronic left subclavian occlusion on CT CAP 08/03 and severe femoral stenosis on angiogram. Wide pulse pressure noted on her A line while in ICU suggests arteriosclerosis. #Hyperlipidemia LDL on admission was 68. Goal LDL for secondary stroke prevention is <70. She has previously refused anti-lipid medication reporting feeling unwell on medicaiton and with muscle pain without weakness. - Atorvastatin as above # Anemia -- H/H on admission 13/40.3 (08/03) with subsequent drop to 9.6 appearing spurious and suspect drawnfrom IV (as BMP at that time with hyperNa and hypoK that resolved upon recheck) with repeat 11.5 -- Hgb stable now 11.5-->11.4 -- Monitor Hgb in CBC daily -- Maintain Hgb > 7 g/dL # Several bilateral femoral artery stenosis, incidental finding # Left subclavian occlusion, incidental finding -- Subclavian finding noted on CTA -- Femoral stenosis seen in diagnostic angiogram -- Neuro vascular checks q 4 hours # Oliguria -- Grossly stable renal function, suspect may have component of diuresis dependency given outpatient lasix use -- Monitor UOP closely -- Monitor renal function in BMP daily # Hx of Anxiety -- In past had Rx for alprazolam and reportedly took it rarely, this is not an active medication and not filled at pharmacy -- Monitor clinically, avoid adding new medications that could confound neurologic exam Best family contact: Extended Emergency Contact Information Primary Emergency Contact: [facility] Mobile Relation: Daughter Secondary Emergency Contact: Nadia Busby Mobile Relation: Daughter Rehab/Ancillary Consults: [] BI (trauma patient with LOC) [] Chemical dependency [] PT [] OT [] Speech [] PM&R [x] [facility] (stroke patient) [] Wound care Anticoagulation therapy: [x] VTE Prophylaxis [] Heparin [x] Lovenox [] SCDs [] IVC Filter [] Other: [] None [] Therapeutic Anticoagulation Indication: [] Heparin [] Lovenox [] Other: Any previous issues with tolerating anticoagulants? [] Yes [x] No Describe: But has a history of non-adherence Venous duplex performed? [] Yes ---> Most recent findings: [x] No Current antimicrobial therapy: [x] N/A - No current antimicrobial therapy Lines/drains/airways present Peripheral IV 08/03/22 18 G Anterior;Right Hand (Active) Number of days: 3 Peripheral IV 08/03/22 18 G Left Hand (Active) Number of days: 3 NG/OG Tube Nasogastric 12 Fr Right nostril (Active) Number of days: 2 Trach size, last date change (NA if not applicable): N/A To-do list prior to transfer: [x] Sign-out was called to Stroke service. QUESTIONS? Call the [facility] Fellow [phone] * Plan of Care - Luna Bhakta RN - 08/06/2022 10:36 PM CDT Goals: Clinical Goals for the Shift: Q4 neuro checks, Q1 VS, promote comfort and safety, mainatin adequatepain control, encourage self care as tolerated, provide education related to medication compliance Summary: Problem: Activity: Goal: Mobility will improve Outcome: Progressing Problem: Lack of Knowledge: Goal: Understanding of ways to prevent future skin breakdown will improve Outcome: Progressing Problem: Nutritional: Goal: Dietary intake will improve Outcome: Progressing Goal: Ability to maintain a balanced intake and output will improve Outcome: Progressing Problem: Skin Integrity: Goal: Risk for impaired skin integrity will decrease Outcome: Progressing Goal: Ability to demonstrate warm and dry skin will improve Outcome: Progressing Goal: Circulation will improve to fullest extent possible Outcome: Progressing Problem: Health Behavior: Goal: Understanding of discharge needs will improve Outcome: Progressing Problem: Activity: Goal: Capacity to carry out activities will improve Outcome: Progressing Goal: Mobility will improve Outcome: Progressing Problem: Lack of Knowledge: Goal: Verbalization of understanding the information provided will improve Outcome: Progressing Problem: Lack of Knowledge: Goal: Ability to notify healthcare provider of pain before it becomes unmanageable or unbearable will improve Outcome: Progressing Problem: Lack of Knowledge: Goal: Knowledge of restraints will improve Description: INTERVENTIONS: 1. Educate patient/caregiver on restraints Outcome: Completed Problem: Safety - Medical Restraint Goal: Remains free of injury from restraints (Restraint for Interference with Bench Tool Maker) Description: INTERVENTIONS: 1. Identify and document the criteria for restraint 2. Determine that other, less restrictive measures have been tried or would not be effective beforeapplying the restraint 3. Evaluate the patient's condition at the time of restraint application and continue to monitor patient's condition 4. Inform patient/family regarding the reason for restraint 5. Q2H: Monitor safety checks including skin, circulation, sensory,respiratory, psychosocial status, comfort, nutrition and hydration 6. Ensure safety/first aid measures are in place (i.e. Quick release, suction, crash cart, etc.) Outcome: Completed Goal: Free from restraint(s) (Restraint for Interference with Bench Tool Maker) Description: INTERVENTIONS: 1. Q2H and PRN: Assess and document the continuing need for restraints 2. Q24H: Continued use of restraint requires LIP to perform face to face examination and written order (ICU restraint orders are not reviewed Q24H only at the time of initiation) 3. Identify and implement measures to help patient regain control Outcome: Completed * Plan of Care - Janette More RN - 08/06/2022 2:29 PM CDT Goals: Clinical Goals for the Shift: Q4 neuro checks, Q1 VS, promote comfort and safety, mainatin adequatepain control, encourage self care as tolerated, provide education related to medication compliance Summary: Problem: Activity: Goal: Mobility will improve Outcome: [...] improve to fullest extent possible Outcome: Progressing Problem: Health Behavior: Goal: Understanding of discharge needs will improve Outcome: Progressing Problem: Activity: Goal: Capacity to carry out activities will improve Outcome: Progressing Goal: Mobility will improve Outcome: Progressing Problem: Lack of Knowledge: Goal: Verbalization of understanding the information provided will improve Outcome: Progressing Problem: Lack of Knowledge: Goal: Knowledge of restraints will improve Description: INTERVENTIONS: 1. Educate patient/caregiver on restraints Outcome: Progressing Problem: Safety - Medical Restraint Goal: Remains free of injury from restraints (Restraint for Interference with Bench Tool Maker) Description: INTERVENTIONS: 1. Identify and document the criteria for restraint 2. Determine that other, less restrictive measures have been tried or would not be effective beforeapplying the restraint 3. Evaluate the patient's condition at the time of restraint application and continue to monitor patient's condition 4. Inform patient/family regarding the reason for restraint 5. Q2H: Monitor safety checks including skin, circulation, sensory,respiratory, psychosocial status, comfort, nutrition and hydration 6. Ensure safety/first aid measures are in place (i.e. Quick release, suction, crash cart, etc.) Outcome: Progressing Goal: Free from restraint(s) (Restraint for Interference with Bench Tool Maker) Description: INTERVENTIONS: 1. Q2H and PRN: Assess and document the continuing need for restraints 2. Q24H: Continued use of restraint requires LIP to perform face to face examination and written order (ICU restraint orders are not reviewed Q24H only at the time of initiation) 3. Identify and implement measures to help patient regain control Outcome: Progressing Problem: Lack of Knowledge: Goal: Ability to develop a pain control plan will improve Outcome: Progressing Goal: Ability to identify pain intensity on a pain scale and rate it consistently will improve Outcome: Progressing Goal: Ability to notify healthcare provider of pain before it becomes unmanageable or unbearable will improve Outcome: Progressing Problem: Medication: Goal: Satisfaction with pain management regimen will improve Outcome: Progressing Problem: Sensory: Goal: Ability to identify factors that increase the pain will improve Outcome: Progressing Goal: Pain level will decrease Outcome: Progressing * ECIN Note - Harjeet Staley - 08/06/2022 2:05 PM CDT Images from the original note were not included. Scheduled Meds Sorted by Name for GironAbena as of 08/06/22 8805 Legend: Inactive Active Linked Medications 08/06/22 08/07/22 08/08/22 08/09/22 08/10/22 08/11/22 08/12/22 aspirin tablet 325 mg Dose: 325 mg Freq: Daily Route: feed tube Start: 08/04/22 1500 0844 0900 0900 0900 0900 atorvastatin (LIPITOR) tablet 40 mg Dose: 40 mg Freq: Daily Route: feed tube Start: 08/05/22 0900 0844 0900 0900 0900 09 0900 Dose: 80 mg Freq: Daily Route: feed tube Start: 08/04/22 0900 End: 08/04/22 103 Dose: 15 mL Freq: 2 times daily Route: mouth/throat Indications of Use: Prevention of Ventilator-Associated Pneumonia Start: 08/03/222099 End: 08/04/22 103 Admin Instructions: Swab all oral surfaces and suction excess. Discontinue Chlorhexidine Gluconate after patient liberated from mechanical ventilation. Dose: 100 mg Freq: 2 times daily Route: oral Indications of Use: constipation Indications Comment: Stool Softener Start: 08/03/222099 End: 08/05/22 07 Admin Instructions: If able to swallow capsules. Hold for diarrhea. Or docusate (COLACE) 10 mg/mL oral liquid 100 mg Dose: 100 mg Freq: 2 times daily Route: feed tube Indications of Use: constipation Indications Comment: Stool Softener Start: 08/03/222099 Admin Instructions: If able to receive medications per tube. Hold for diarrhea. 899 2099 899 2099 899 2099 899 2099 enoxaparin (LOVENOX) syringe 40 mg Dose: 40 mg Freq: Daily (for enoxaparin) Route: subQ Indications of Use: deep vein thrombosis prevention Start: 08/04/22 1500 2100 2099 2099 2099 2099 Dose: 20 mg Freq: Every 24 hours Route: IV Start: 08/03/225 End: 08/04/22 103 Dose: 20 mg Freq: Once Route: IV Start: 08/06/22 1000 End: 08/06/22 1032 Admin Instructions: For IV push: administer doses < 160 mg at a rate of 20 -40 mg/min. Doses >/= 160 mg should beadministered no faster than 4 mg/min. Room temperature only 1032 losartan (COZAAR) tablet 12.5 mg Dose: 12.5 mg Freq: Daily Route: oral Start: 08/06/22 1430 1430 0900 0900 0900 Dose: 25 mg Freq: Daily Route: feed tube Start: 08/06/22 1000 End: 08/06/22 1353 (9640) 0435-D/C'd Dose: 2 g Freq: Once Route: IV Start: 08/03/222229 End: 08/04/22 0052 metoprolol tartrate immediate release capsule 6.25 mg Dose: 6.25 mg Freq: 2 times daily Route: feed tube Start: 08/06/22 1000 (1029) 2100 899 2099 899 2099 899 2099 Start: 08/05/22 1028 End: 08/05/22 1040 Admin Instructions: Created by cesia kelsey Dose: 1 tablet Freq: 2 times daily Route: oral Indications of Use: constipation Start: 08/03/222099 End: 08/05/22 0707 Admin Instructions: If able to swallow tablets. Hold for diarrhea. Or senna 1.76 mg/mL syrup 8.8 mg Dose: 8.8 mg Freq: 2 times daily Route: feed tube Indications of Use: constipation Start: 08/03/222099 Admin Instructions: If able to receive medications per tube. Hold for diarrhea. 899 2099 899 2099 899 2099 899 2099 Dose: 500 mL Freq: Once Route: IV Start: 08/05/22 0430 End: 08/05/22 0417 Medications 08/06/22 08/07/22 08/08/22 08/09/22 08/10/22 08/11/22 08/12/22 Continuous Meds Sorted by Name for Abena Giron as of 08/06/22 1405 Legend: Inactive Active Linked Medications 08/06/22 08/07/22 08/08/22 08/09/22 08/10/22 08/11/22 08/12/22 Rate: 0-26.03 mL/hr Dose: 0-1.5 mcg/kg/hr Weight Dosing Info: 69.4 kg Freq: Titrated Route: IV Last Dose: Stopped (08/04/22 0800) Start: 08/03/221999 End: 08/04/221034 Order specific questions: Titration instructions: Titrate Initial dose 0.2 mcg/kg/hr Titrate Up/Down Titrate by 0.1 mcg/kg/hr Every 30 minutes Goal RASS RASS Goal 0 RASS Goal -1 RASS Goal -2 Freq: Continuous PRN Last Dose: 50 mL/hr (08/03/221751) Start: 08/03/221751 End: 08/03/221751 PRN Meds Sorted by Name for Abena Giron as of 08/06/22 1405 Legend: Inactive Active Linked Medications 08/06/22 08/07/22 08/08/22 08/09/22 08/10/22 08/11/22 08/12/22 acetaminophen (TYLENOL) 32 mg/mL oral liquid 650 mg Dose: 650 mg Freq: Every 4 hours PRN Route: feed tube PRN Reasons: 1st line for pain,fever Start: 08/03/222133 1029 Carrier Fluids for Secondary Infusion - 0.9% Sodium Chloride Dose: 30 mL Freq: As needed Route: IV PRN Reason: For priming tubing and/or flushing Start: 08/03/222341 Admin Instructions: 0-250ml/hr to flush line after IV infusions when no maintenance IV ordered. Infuse 30mL at the samerate as the secondary infusion. Run as primary IV, not intended for KVO heparin in 0.9% sodium chloride 1,000 units/500 mL (2 unit/mL) infusion (premix) Freq: Continuous PRN Start: 08/03/221751 End: 08/03/221751 iodixanoL (VISIPAQUE) 320 mg iodine/mL injection Freq: As needed Start: 08/03/221853 End: 08/03/22 185 ioversoL (OPTIRAY 350) syringe 100 mL Dose: 100 mL Freq: Once in imaging Route: IV PRN Reason: contrast Start: 08/03/22 1646 End: 08/03/22 1646 ondansetron (ZOFRAN) injection 4 mg Dose: 4 mg Freq: Every 6 hours PRN Route: IV PRN Reasons: nausea,vomiting Indications Comment: Nausea and Vomiting Start: 08/03/22 1935 Admin Instructions: Proceed to trimethobenzamide if no relief within 30 minutes. perflutren protein-a (OPTISON) 0.22 mg/mL injection - ADS Override Pull Start: 08/05/22 1028 End: 08/05/22 1040 Admin Instructions: Created by cabinet override perflutren protein-a (OPTISON) 3 mL in sodium chloride 0.9% 8 mL syringe Dose: 1-8 mL Freq: Once in imaging Route: IV PRN Reason: contrast Start: 08/05/22929 End: 08/05/22 1040 Medications 08/06/22 08/07/22 08/08/22 08/09/22 08/10/22 08/11/22 08/12/22 * ECIN Note - Harjeet Staley - 08/06/2022 2:04 PM CDT Images from the original note were not included. Patient Information: OT Eval and Treat Last 72 Hours OT Evaluation Row Name 08/05/22 1051 Chart Reviewed Yes -ED Session Type Evaluation -ED OT Received On 08/05/22 -ED Safe Environment Arm band checked;Patient found in supine;Gait belt utilized for all out of bed mobility -ED Subjective Agreeable to Therapy -ED Family/Caregiver Present Yes daughters present -ED Occupational Therapy-Patient Goal Pt does not report OT goal this date but eager to participate in therapy. -ED Precautions Fall risk -ED Type of Home House -ED Home Layout One level -ED Bathroom Shower/Tub Tub/shower unit -ED Home Mobility Equipment None -ED Level of Essie Independent with ADLs;Independent with homemaking with ambulation -ED Lives With Alone -ED Receives Help From Family department store salesperson assistance available -ED Driving Yes -ED ADL Assistance Independent -ED Instrumental ADL (IADL) Assistance Independent -ED Vocational/Occupation Retired -ED Fall within the last 6 months No -ED Prior Function Comments PLOF provided by daughter -ED Grooming: Where assessed Chair -ED Grooming: Level of assistance Maximum Assist min task, total balance -ED LE Dressing: Where assessed Chair -ED LE Dressing: Level of assistance Maximum Assist max task, mod balance -ED Toilet Transfer From Bed -ED Toilet Transfer Type To -ED Toilet Transfer to Standard bedside commode simulated bedside commode with chair -ED Toilet Transfer Technique -- stand and step -ED Toilet Transfer: Equipment Hand hold -ED Toilet Transfers Moderate assistance assist for impaired balance, decreased force production, controlled descent, and R LE blocking -ED Pain Assessment No/denies pain -ED Current Vision Wears glasses only for reading -ED Patient Visual Report -- Pt denies acute changes in vision -ED Arousal/Alertness Alert -ED Attention Span Attends with cues to redirect -ED Memory Unable to assess -ED Current communication -- expressive language impairment noted -ED Orientation Oriented X4 (person, place, time, situation) with choices -ED Following Commands Follows one step commands with repetition -ED Safety Judgment Decreased awareness of need for safety -ED Compliance/Behavior Easy to engage -ED Serial Opposition -- LUE WFL, RUE impaired -ED RUE Grasp -- 0/5 -ED LUE Grasp -- 5/5 -ED Bed Mobility Yes -ED Bed Mobility From 1 Supine -ED Bed Mobility Type 1 To -ED Bed Mobility to 1 Edge of bed -ED Level of Assistance 1 Minimum Assist assist to maneuver LEs and bring hips EOB -ED Transfer From 1 Sit -ED Transfer Type 1 To and from -ED Transfer to 1 Stand -ED Transfer Device 1 Hand held assist -ED Transfer Level of Assistance 1 Moderate Assist assist for impaired balance, decreased force production, controlled descent, and R LE blocking -ED RUE Assessment X -ED RUE Comments No AROM, PROM WFL -ED LUE Assessment WFL -ED Putting on and taking off regular lower body clothing 2 -ED Bathing 2 -ED Toileting 2 -ED Putting on and taking off upper body clothing 2 -ED Personal Grooming 2 -ED Eating Meals 1 -ED Total Score (range 6-24) 11 -ED Score Interpretation 29.04 -ED Safe Environment End of Therapy Session Patient left in recliner;Chair alarm in place and activated;RN notified;Call light within reach -ED Problem List Decreased balance;Decreased fine motor control;Decreased functional mobility;DecreasedADL independence;Decreased IADL independence;Non-functional right upper extremity;Decreased upper extremity range of motion;Decreased upper extremity strength;Decreased safe judgment during ADL -ED Plan Plan of care initiated;If this is the last note, consider this the discharge summary -ED OT Recommendation Inpatient Rehab Facility -ED Patient at high risk for Falls;Readmission;Injury due to decreased ability to care for self;Injury due to balance deficits;Injury at home as patient has not returned to prior level of function -ED Recommend Inpatient Rehab/Acute Rehab due to Ability to actively participate in intensive therapy 3hours/day, 5 days/week or 900 minutes per week;Highly motivated to participate in therapy;Not at baseline due to impaired ability to complete ADLs -ED OT Frequency during current admission 3-5x/wk -ED Treatment/Interventions during current admission ADL/IADL retraining;Balance Training;Bed mobility;Cognitive retraining;Functional activity;Functional mobility training;Functional transfer training;Therapeutic activity;Therapeutic exercise;Transfer training;Range of motion;Positioning -ED OT - Next Appointment 08/07/22 -ED OT Evaluation Complete Yes -ED User Cisse (r) = Recorded By, (t) = Taken By, (c) = Cosigned By Initials Name Effective Dates ED Citlaly Jacobson 06/26/22 - OT Treatment No documentation. OT Notes Notes from 08/04/22 through 08/06/22 No notes of this type exist for this encounter. , PT Eval and Treat Last 72 Hours PT Evaluation Row Name 08/05/22 0815 Chart Reviewed Yes -MM Session Type Evaluation -MM Safe Environment Arm band checked;Patient found in supine;Gait belt utilized for all out of bed mobility -MM Subjective Agreeable to Therapy -MM Family/Caregiver Present Yes dtr -MM Physical Therapy-Patient Goal Pt agreeable to goals stated by PT -MM Precautions Fall risk -MM Type of Home House -MM Home Layout One level -MM Home Access Stairs to enter with rails -MM Entrance Stairs-Number of Steps 2 -MM Home Mobility Equipment None -MM Additional Comments Pt provided with collateral from dtr -MM Level of Essie Independent with ADLs;Independent with homemaking with ambulation -MM Lives With Alone -MM Receives Help From Family Per dtr, not yet sure if they can provide 24hr care -MM Fall within the last 6 months No -MM Prior Function Comments Pt provided with collateral from dtr -MM Pain Assessment No/denies pain -MM Arousal/Alertness Appropriate responses to stimuli -MM Orientation Oriented to person;Oriented to place -MM Compliance/Behavior Easy to engage -MM Light Touch Partial deficits in the RLE -MM Sensation Comments No open wounds noted and no edema observed B LE below knees. -MM Bed Mobility From 1 Supine -MM Bed Mobility Type 1 To -MM Bed Mobility to 1 Edge of bed -MM Level of Assistance 1 Minimum Assist -MM Bed Mobility Comments 1 assist to move R LE, elevated trunk, turn hips -MM Transfer From 1 Sit -MM Transfer Type 1 To and from -MM Transfer to 1 Stand -MM Transfer Device 1 Hand held assist -MM Transfer Level of Assistance 1 Moderate Assist -MM Trials/Comments 1 x3 trials, assist for force production and balance, blocking R LE -MM Transfer From 2 Bed -MM Transfer Type 2 To and from -MM Transfer to 2 Commode-standard -MM Technique 2 Stand pivot -MM Transfer Device 2 Hand held assist -MM Transfer Level of Assistance 2 Maximum Assist -MM Trials/Comments 2 assist for balance, weight shifting, R LE blocking -MM Ambulation Comments 1 Unable to complete Gait Speed (10 meter walk) as a fall risk outcome measure due to inability to ambulate this distance without significant assistance. -MM RUE Assessment X -MM RUE Comments Flaccid, PROM WFL -MM LUE Assessment WFL -MM LUE Comments ELIZABET MMT 2/2 command following impairments (difficulty with multi- step commands on thisdate) -MM RLE Assessment X -MM R Hip Flexion 4/5 -MM R Knee Extension 3/5 -MM R Ankle Dorsiflexion 0/5 -MM LLE Assessment WFL -MM LLE Comments ELIZABET MMT 2/2 command following impairments (difficulty with multi- step commands on thisdate) -MM Other PT Comments Pt educated on PT POC and d/c recommendations -MM How much difficulty does the patient have: Turning over in bed 3 -MM How much difficulty does the patient currently have: Sitting down and standing up from a chair witharms? 2 -MM How much difficulty does the patient have: Moving from lying on back to sitting on the side of the bed? 3 -MM How much difficulty does the patient have: Moving to and from a bed to a chair including wheelchair? 2 -MM How much help does the patient currently need: Walk in hospital room? 2 -MM How much help from another person does the patient currently need: Climbing 3-5 steps with a railing? 1 -MM Total 6 Click Score (range 6-24) 13 -MM Safe Environment End of Therapy Session Patient left supine in bed;RN notified;Bed in lowest position with wheels locked;Bed rails up per protocol;Overbed table within reach;Call light within reach;Sequential compressive devices on legs and activated Returned to bed 2/2 echo -MM Prognosis Good -MM Problem List Gait deviations;Decreased strength;Decreased range of motion;Decreased endurance;Impaired balance;Decreased mobility -MM Problem List Comments PT Diagnosis: L MCA s/p TNK/MT TICI 2B results in above listed activity deficits and impairments which prevent full participation in home and community mobility -MM Barriers to Discharge Current Mobility Status -MM Plan Plan of care initiated;If this is the last note, consider this the discharge summary - PT Recommendation/Plan Inpatient Rehab Facility -MM Patient at high risk for Falls;Readmission;Injury due to reduced functional status;Injury due to impaired cognition;Injury due to balance deficits;Injury at home as patient has not returned to prior level of function;Developing impaired skin integrity -MM Recommend Inpatient Rehab/Acute Rehab due to Ability to actively participate in intensive therapy 3hours/day, 5 days/week or 900 minutes per week;Highly motivated to participate in therapy;Likely toreturn to the community at discharge with support system in place;Requires greater than 25% physical assistance with most mobility tasks;Requires multiple therapy disciplines to address functional deficits;Patient and caregiver require specialized skilled training due to new level of function/diagnosis;Requires skilled therapy interventions to address neurological deficits;Impaired ability to complete functional mobility -MM PT Recommendation/Plan Comments pt and family agreeable - PT Frequency during current admission 3-5x/wk -MM Treatment/Interventions during current admission Balance Training;Bed mobility;Endurance training;Functional activity;Equipment eval/education;Functional transfer training;Gait training;Neuromuscularre- education;Therapeutic activity;Therapeutic exercise;Transfer training - PT Evaluation Complete Yes - User Cisse (r) = Recorded By, (t) = Taken By, (c) = Cosigned By Initials Name Effective Dates [place] Blue PT 12/25/21 - PT TREATMENT (last 168 hours) PT Treatment No documentation. PT Notes 08/05/2022 12:06 PM Progress Notes signed by [place] Blue PT , WOOD FINISHER APPRENTICE Eval and Treat Last 72 Hours WOOD FINISHER APPRENTICE Evaluation Row Name 08/04/22 0800 WOOD FINISHER APPRENTICE Missed Visit Reason MD/RN Hold STH1, intubated - WOOD FINISHER APPRENTICE - Next Appointment 08/07/22 - User Cisse (r) = Recorded By, (t) = Taken By, (c) = Cosigned By Initials Name Effective Dates Amalia Cole, WILDA 03/29/21 - WOOD FINISHER APPRENTICE Treatment No documentation. Clinical Swallow Study Row Name 08/05/22 1303 Alertness 10 Cooperation 10 Auditory Comprehension 6 Respiration 8 Respiratory Rate (for swallow) 5 Aphasia 2 Apraxia 1 Dysarthria 1 Saliva 5 Lip Seal 4 Tongue Movement 6 Tongue Strength 5 Tongue Coordination 5 Gag 1 did not assess Palate 2 unable to visualize Cough Reflex 3 Voluntary Cough 8 Voice 8 Trach 10 Oral Preparation 8 Bolus Clearance 8 Oral Transit 8 Delay consistency Thin liquids;Purees Pharyngeal Phase 8 Pharyngeal Response 5 MASA Score 137 Dysphagia Severe dysphagia (<138) Aspiration Risk Severe aspiration risk (<140) WOOD FINISHER APPRENTICE Notes Notes from 08/04/22 through 08/06/22 No notes of this type exist for this encounter. * Plan of Care - Harjeet Staley - 08/06/2022 2:01 PM CDT Report per DCAM: Patient not medically stable to discharge from the hospital. Impression: Patient admitted to [facility] for stroke work up protocol. Referrals: Center Machine Operator noted patient has been recommended for post acute rehabilitation by PT/OT. Center Machine Operator met with the patient and daughter,Tabatha, at bedside to discuss recommendations by therapy and to work on a potential discharge disposition plan. Center Machine Operator provided education to patient and Tabatha on the rehabilitation process. Patient reported she was interested in placement for rehabilitation. manager biostatistics provided a facility list to patient and family. Patient and family [facility] the following [facility] via [facility]. CM awaiting acceptance from a IRF and will continue to work on discharge planning with patient and family. Support: Family Transportation: EMS F/U Appt: to be scheduled ADD: Patient transitioning out of ICU today 08/06. Case Management will follow for planning and referrals as needed. GERALD Zelaya, manager grant * Plan of Care - Luna Bhakta RN - 08/06/2022 12:25 AM CDT Goals: Clinical goals of the shift: stable VS Q 1 hour, stable neuro assessment Q 4 hours, promote comfortand nutrition, monitor VS and labs and treat as directed Summary: Problem: Activity: Goal: Mobility will improve Outcome: Progressing Problem: Lack of Knowledge: Goal: Understanding of ways to prevent future skin breakdown will improve Outcome: Progressing Problem: Nutritional: Goal: Dietary intake will improve Outcome: Progressing Goal: Ability to maintain a balanced intake and output will improve Outcome: Progressing Problem: Skin Integrity: Goal: Risk for impaired skin integrity will decrease Outcome: Progressing Goal: Ability to demonstrate warm and dry skin will improve Outcome: Progressing Goal: Circulation will improve to fullest extent possible Outcome: Progressing Problem: Activity: Goal: Capacity to carry out activities will improve Outcome: Progressing Goal: Mobility will improve Outcome: Progressing Problem: Health Behavior: Goal: Understanding of discharge needs will improve Outcome: Not Progressing Problem: Lack of Knowledge: Goal: Verbalization of understanding the information provided will improve Outcome: Not Progressing * Plan of Care - Harjeet Staley - 08/05/2022 3:34 PM CDT Report per DCAM: Patient not medically stable to discharge from the hospital. Impression: Patient admitted to [facility] for stroke work up protocol. Referrals: No referrals made at this time. PT/OT recommending post acute rehab. IRF list given to patient and daughter, Tabatha. CM will follow up tomorrow 08/06. Support: Family Transportation: EMS F/U Appt: to be scheduled ADD: Patient transitioning out of ICU today 08/05. Case Management will follow for planning and referrals as needed. GERALD Zelaya, manager grant * Plan of Care - Flo Bassett RN - 08/05/2022 11:49 AM CDT Problem: Activity: Goal: Mobility will improve Outcome: [...] improve to fullest extent possible Outcome: Progressing Problem: Health Behavior: Goal: Understanding of discharge needs will improve Outcome: Progressing Problem: Activity: Goal: Capacity to carry out activities will improve Outcome: Progressing Goal: Mobility will improve Outcome: Progressing Problem: Lack of Knowledge: Goal: Verbalization of understanding the information provided will improve Outcome: Progressing Goals: Clinical Goals for the Shift: Q4 NC, comfort and pain management Summary: * Plan of Care - Josue Mccracken RN - 08/04/2022 10:55 PM CDT Problem: Activity: Goal: Mobility will improve Outcome: [...] improve to fullest extent possible Outcome: Progressing Problem: Health Behavior: Goal: Understanding of discharge needs will improve Outcome: Progressing Problem: Activity: Goal: Capacity to carry out activities will improve Outcome: Progressing Goal: Mobility will improve Outcome: Progressing Problem: Lack of Knowledge: Goal: Verbalization of understanding the information provided will improve Outcome: Progressing Goals: Clinical Goals for the Shift: q4 NC, encourage participation, promote comfort and safety Summary: will continue to monitor throughout shift * Initial Assessments - Harjeet Garcia RN - 08/04/2022 11:48 AM CDT CM Initial Assessment Interview Note Information Obtained From: Adult child Name: Tabatha Giron [phone] (08/04/22 1146) Admission Source: OSH transfer Impression: 82 y/o female here following a stroke Plan Includes: evaluation by medical team and in coordination with PT/OT, any other appropriate disciplines, will develop a safe dc plan to appropriate setting. Primary Source of Transportation: Does the patient need discharge transport arranged?: Yes Has discharge transport been arranged?: No (08/04/221145) Health Insurance Coverage: Med A/B, [place] Traditional [place] suppl Prescription Coverage: yes Pharmacy: [facility] [place] - [address] [place] [id number] Primary Care Provider: Jaleel Mcgovern MD Prior to Admission: Primary Caregiver: Self Who does the patient or legal guardian want to receive education instruction and discharge plans for after care assistance?: Decline Support System: [employer] Support system contact info (name, phone, availablity): 4 daughters, names/numbers in chart Home Care Services: No Durable Medical Equipment: None Living Arrangements: Alone Type of Residence: Private residence Steps in home?: Yes, Outside of home, Yes, Inside home Number of steps inside: 9 steps Number of steps outside: 2 steps (08/03/222099) Potential discharge needs include: Await pt/ot recs as well as team decisions to determine dc needs Dialysis: no Behavioral Health Services: Behavioral Health Services: No (08/04/221145) Patient expects to be Discharged to: Private residence, (08/03/222099) Additional Information: demographic and emergency contact verified Patient's Identified Problem/Goal Problem: Ensure acute medical needs are met [...] Collaboration with patient, MD, direct care nurse, Studio Operation Engineer, and other members of the health care team to assure needed interventions completed. 2. Return patient to optimal level of self-care post discharge. 3. Center Machine Operator will follow for Discharge Planning - interventions as needed 4. Anticipated level of care at discharge 5. Planned Discharge Disposition Based on a comprehensive family assessment, assistance with instrumental activities of daily livingafter discharge will be provided by patient and family Through the course of our work I determined that the patient and family possesses the skill and ability to provide and monitor the care of the patient when he or she returns home. patient and family has the capacity to provide/monitor/arrange for the care of the patient. Finally, we determined that patient and family has the knowledge of available resources and that combining them with their existing resources will suffice to sustain and care for the patient when he or she returns home. The treatment team is aware of this information. All are in agreement with the aftercare plan. Harjeet Garcia RN * Plan of Care - Flo Bassett RN - 08/04/2022 11:33 AM CDT Problem: Activity: Goal: Mobility will improve Outcome: [...] improve to fullest extent possible Outcome: Progressing Problem: Health Behavior: Goal: Understanding of discharge needs will improve Outcome: Progressing Problem: Activity: Goal: Capacity to carry out activities will improve Outcome: Progressing Goal: Mobility will improve Outcome: Progressing Problem: Lack of Knowledge: Goal: Verbalization of understanding the information provided will improve Outcome: Progressing Goals: Clinical Goals for the Shift: frequent NC, flat until 0100, wean sedation, possibly extubate, promote comfort and safety Summary * Plan of Care - Dilia Diaz RRT - 08/04/2022 10:17 AM CDT Patient extubated to 6lpm nasal cannula. No distress, wheezes or distress noted at this time. Plan RT and RN will wean O2 as tolerated. * Plan of Care - Jerardo Aguilera RRT - 08/04/2022 2:21 AM CDT Plan of Care: continue with Full Support ventilation overnight. * Plan of Care - Josue Mccracken RN - 08/04/2022 1:16 AM CDT Problem: Activity: Goal: Mobility will improve 08/04/2022116 by Josue Mccracken RN Outcome: Progressing 08/04/2022115 by Josue Mccracken RN Outcome: Progressing Problem: Lack of Knowledge: Goal: Understanding of ways to prevent future skin breakdown will improve 08/04/2022116 by Josue Mccracken RN Outcome: Progressing 08/04/2022115 by Josue Mccracken RN Outcome: Progressing Goal: Ability to identify appropriate dietary choices will improve 08/04/2022116 by Josue Mccracken RN Outcome: Progressing 08/04/2022115 by Josue Mccracken RN Outcome: Progressing Problem: Nutritional: Goal: Dietary intake will improve 08/04/2022116 by Josue Mccracken RN Outcome: Progressing 08/04/2022115 by Josue Mccracken RN Outcome: Progressing Goal: Ability to maintain a balanced intake and output will improve 08/04/2022116 by Josue Mccracken RN Outcome: Progressing 08/04/2022115 by Josue Mccracken RN Outcome: Progressing Problem: Skin Integrity: Goal: Risk for impaired skin integrity will decrease 08/04/2022116 by Josue Mccracken RN Outcome: Progressing 08/04/2022115 by Josue Mccracken RN Outcome: Progressing Goal: Ability to demonstrate warm and dry skin will improve 08/04/2022116 by Josue Mccracken RN Outcome: Progressing 08/04/2022115 by Josue Mccracken RN Outcome: Progressing Goal: Circulation will improve to fullest extent possible 08/04/2022116 by Josue Mccracken RN Outcome: Progressing 08/04/2022 011 by Josue Mccracken, RN Outcome: Progressing Problem: Health Behavior: Goal: Understanding of discharge needs will improve 08/04/2022 011 by Josue Mccracken RN Outcome: Progressing 08/04/2022 011 by Josue Mccracken, RN Outcome: Progressing Problem: Activity: Goal: Capacity to carry out activities will improve Outcome: Progressing Goal: Mobility will improve Outcome: Progressing Problem: Lack of Knowledge: Goal: Verbalization of understanding the information provided will improve Outcome: Progressing Goals: Clinical Goals for the Shift: frequent NC, flat until 0100, wean sedation, possibly extubate, promote comfort and safety Summary: will continue to monitor throughout shift * Significant Event - Alice Yoo NP - 08/04/2022 12:23 AM CDT I personally spoke to the patient's four daughters, who have stated that the patient would not wantto be resuscitated if that situation would arise. The patient's code status has been changed to DNR. All questions and concerns have been answered. * Post-Procedure Note - Kamlesh Steele MD - 08/03/2022 6:33 PM CDT Interventional Neuroradiology Brief Post Procedure Note Attending: Kamlesh Steele MD Materials Management Clerk: None Sedation/Anesthesia: Anesthesia with Fentanyl and Versed for 45 minutes Medications: None Contrast: [id number] Pre-Op Diagnosis: Left M1 Occlusion Post-Op Diagnosis: Same Procedure Performed: LICA 2. . Thrombectomy Left MCA with Aspiration Access Site: Left Femoral Procedure Findings: Several Bilateral Femoral Artery Stenosis Left MCA Occlusion Successful Thrombectomy, Left MCA, TICI 2B Final 50% Left Carotid Stenosis Access Site Closure: Manual Pressure Complications: None Estimated Blood Loss: < 30 ml Specimens: None Condition: Stable Full report to follow. * ED Procedure Note - Jay Coleman MD - 08/03/2022 4:36 PM CDT Associated Order(s): ECG 12 lead Procedure ECG 12 lead Date/Time: 08/03/2022 4:36 PM Performed by: Jay Coleman MD Authorized by: Jay Coleman MD Rate: ECG rate: 73 ECG rate assessment: normal Rhythm: Rhythm: paced Pacing: Capture: Complete Type of pacing: Ventricular Ectopy: Ectopy: PVCs QRS: QRS axis: Left QRS intervals: Wide Interpretation: Interpretation: No acute injury pattern Comments: Does not meet modified Sgarbossi criteria Jay Coleman MD 08/03/22 1637 * Telestroke - Kathy Gomez MD - 08/03/2022 4:06 PM CDT [facility] Telestroke Consultation Note Patient Name: Abena Giron Date of : 1940 Date of Service: 08/03/2022 Telestroke Documentation Consult Start Time: 1412 Consult Stop Time: 142 Consult Time Calculation (min): 13 min Name of Requesting Provider: Dr. kovacs Video Used? : No Reminded [facility] to Document use of Video: No Imaging Reviewed?: Yes (08/03/22 1738) Subjective HPI: Patient is a 82 y.o. female presenting with neurological deficits. Patient was at a restaurant having lunch with family members. Last known well was 1:05 p.m.. Shortly thereafter she was noticed to suddenly become weak on the right side and was also mute. EMS picked her up from there and took her to [facility] Emergency room. At the scene, blood pressure was 68/31. In [facility] ER it was 90/45. She was described as having flaccid right arm and leg and right facial weakness and was mute and could not follow any commands. Her blood pressure improved to 109/[address] headwhich I reviewed showed no hemorrhage and a convincing left middle cerebral artery hyperdense sign.CTA showed a left M1 cut off/occlusion. Left cervical ICA with significant stenosis. Patient has a history of hypertension, coronary artery disease status post stents (she is on Plavix), has a pacemaker, history of hyperlipidemia and has atrial fibrillation as mentioned above. Last known well Date Last Known Well : 08/03/22 Time Last Known Well: 1305 Discovery of Symptoms - Date: 08/03/22 Discovery of Symptoms - Time: 1306 (08/03/22 1545) PMH/Vascular Risk Factors: Atrial Fibrillation, CAD, Hyperlipidemia, and Hypertension (Not in a hospital admission) No current facility-administered medications for this encounter. Current Outpatient Medications Medication Sig Dispense Refill ALPRAZolam (XANAX) 0.25 mg tablet Take 1 tablet (0.25 mg total) by mouth 2 (two) times a day as needed for anxiety (Patient not taking: Reported on 08/28/2021) 60 tablet 1 apixaban (ELIQUIS) 5 mg tablet take 1 tablet by oral route 2 times every day 0 0 artificial tears (SYSTANE) 0.3 % gel Apply 1 drop to both eyes 4 (four) times a day as needed (Patient not taking: Reported on 07/18/2022) ascorbic acid (VITAMIN C) 1,000 mg tablet Take 2 tablets (2,000 mg total) by mouth daily cholecalciferol (VITAMIN D-3) 2,000 unit tablet take 1 tablet by oral route every day 90 3 cyanocobalamin (Vitamin B-12) 100 mcg tablet Take 1 tablet (100 mcg total) by mouth daily Entresto 24-26 mg tablet (Patient not taking: Reported on 08/28/2021) fexofenadine (WALESKA) 180 mg tablet Take 1 tablet (180 mg total) by mouth daily fluticasone propionate (FLONASE) 50 mcg/actuation nasal spray Administer 2 sprays into each nostrildaily 16 g 3 furosemide (LASIX) 20 mg tablet Take 1 tablet (20 mg total) by mouth daily 90 tablet 1 spironolactone (ALDACTONE) 25 mg tablet Take 1 tablet (25 mg total) by mouth daily 90 tablet 1 Objective Vitals: Patient Vital Signs for the past 24 hrs: BP MAP (mmHg) Temp Temp src Pulse Resp SpO2 Height 08/03/22 1554 -- -- -- -- -- -- -- 154.9 cm (5' 1 ) 08/03/22 155 -- -- -- -- -- 20 -- -- 08/03/22 1551 102/75 84 36.3 ??C (97.4 ??F) Axillary 84 24 94 % -- 08/03/22 1550 100/75 83 -- -- 78 24 -- -- 08/03/22 1549 98/68 -- -- -- 82 22 -- -- Please see above NIHSS: NIH Stroke Scale Interval: Transfer (tx from OSH.) Level of Consciousness (1a.): Alert, keenly responsive LOC Questions (1b.): Answers neither question correctly LOC Commands (1c.): Performs neither task correctly Best Gaze (2.): Forced deviation Visual (3.): No visual loss Facial Palsy (4.): Normal symmetrical movements (ELIZABET) Motor Arm, Left (5a.): No drift Motor Arm, Right (5b.): Some effort against gravity Motor Leg, Left (6a.): No drift Motor Leg, Right (6b.): No effort against gravity Limb Ataxia (7.): Absent Sensory (8.): Normal, no sensory loss Best Language (9.): Mute, global aphasia Dysarthria (10.): Severe dysarthria, patient's speech is so slurred as to be unintelligible in the absence of or out of proportion to any dysphasia, or is mute/anarthric Extinction and Inattention (11.) (Formerly Neglect): No abnormality Total: 16 (08/03/221557) Other exam findings: Please see above Imaging Interpretation: Please see above CT Head preliminary read for lytic treatment (Read to Treat)? CT head personally reviewed showing no hemorrhage, preliminary read for lytic therapy completed at 1415. If there is a different opinion by the reading radiologist, please contact the telestroke team immediately. Labs: Lab Results Lab Value Date/Time GLUCOSE 150 08/03/2022 1350 GLUCOSE 107 (H) 02/15/2019 1218 PT 13.8 (H) 08/03/2022 1350 INR 1.3 (H) 08/03/2022 1350 Hematology Lab History Some values may be hidden. Unless noted otherwise, only the newest values recorded on each date aredisplayed. Labs - Hematology Latest Ref Range 08/03/22 WBC 3.8 - 9.9 K/cumm 6.3 Total Hb, POC 11.9 - 15.5 g/dL 13.0 Hct 35.6 - 45.5 % 40.3 Plt 150 - 400 K/cumm 185 Neutrophil abs 1.7 - 6.5 K/cumm 3.5 Lymphocytes, abs 0.8 - 3.3 K/cumm 2.0 Other notable labs: Please see above Medical Decision Making: Recommendations Thrombolytic Recommended: Yes Thrombolytic Recommended Time: 1420 Thrombectomy Decision: Yes (08/03/22 1605) Assessment/Plan: Large dominant hemispheric stroke, acute and a candidate for intravenous thrombolytics and mechanical thrombectomy barring any contraindications that Dr. Fong will go over historically and with family. [facility] EM physician aware of patient's need to transfer to us for mechanical thrombectomy. Furthermore, interventional neuroradiologist (Dr. Pyle) and also neurology team are aware. Unclear why hypotensive though it seems like her blood pressure runs a bit low. As to the pathophysiologic mechanism of the stroke, this could be cardioembolic or artery to artery embolization (from left cervical ICA to M1). Total time spent coordinating care 35 minutes. Kathy Gomez MD [employer] Telestroke Service For follow up questions please call the [facility] Transfer [facility] and ask to speak with the on-call physician for Telestroke * ED Pre-Arrival Note - Villa Jaramillo RN - 08/03/2022 2:35 PM CDT Pre-Arrival Note Patient coming for thrombectomy evaluation, M1 occulsion, NIH 23. Given TNK. LKN 1305. Patient is awake, but not responsive A&Ox0. Accepted by MD Coleman, report called from Telestroke MD Kovacs. Villa Jaramillo RN * ED Procedure Note - Citlaly Crump MD - 08/03/2022 11:21 AM CDT Associated Order(s): Critical Care Procedure Critical Care Performed by: Citlaly Crump MD Authorized by: Jay Coleman MD Critical care provider statement: As reflected in the history, physical exam, orders, notes, and/or MDM, I was personally present while the patient was critically ill and provided critical care services for 30 minutes, excluding timeinvolved in separately billable procedures. Critical care was necessary to treat or prevent imminent or life- threatening deterioration of the following condition(s): acute cerebrovascular accident (CVA) acute electrolyte derangement Critical care was time spent by me providing the following: continuous telemetry, continuous pulse oximetry and serial bedside patient exams frequent neurologic exams, decision regarding acute lytic therapy and initiation of stroke management decision regarding NPO status active repletion of electrolytes I provided emergent necessary critical care medicine services to this patient. I ordered and reviewed test results and/or imaging studies. I spent time discussing the management of this critically ill patient with consultants and the medical staff. I spent time discussing the management and therapeutic options for this critically ill patient with the patient themselves or with the appropriate designated surrogate decision-maker. I spent time documenting in the medical record. Citlaly Crump MD 08/12/22 1714 Citlaly Crump MD 08/15/22 0246 documented in this encounter Plan of Treatment Not on file documented as of this encounter Procedures Procedure Name Priority Date/Time Associated Diagnosis Comments EGFR Routine 08/11/2022 9:54 PM CDT CBC WITHOUT DIFFERENTIAL Routine 023 9:54 PM CDT MAGNESIUM Routine 08/11/2022 9:54 PM CDT BASIC METABOLIC PANEL Routine 08/11/2022 9:54 PM CDT COVID-19 CORONAVIRUS RNA Routine 023 5:47 AM CDT EGFR Routine 08/11/2022 5:47 AM CDT CBC WITHOUT DIFFERENTIAL Routine 023 5:47 AM CDT MAGNESIUM Routine 08/11/2022 5:47 AM CDT BASIC METABOLIC PANEL Routine 08/11/2022 5:47 AM CDT CBC WITHOUT DIFFERENTIAL Routine 023 9:30 PM CDT EGFR Routine 08/09/2022 8:39 PM CDT MAGNESIUM Routine 08/09/2022 8:39 PM CDT BASIC METABOLIC PANEL Routine 08/09/2022 8:[address] HEAD WO CONTRAST IP Routine 08/09/2022 12:34 PM CDT POCT GLUCOSE DEVICE Routine 08/08/2022 10:53 PM CDT EGFR Routine 08/08/2022 9:39 PM CDT CBC WITHOUT DIFFERENTIAL Routine 023 9:39 PM CDT MAGNESIUM Routine 08/08/2022 9:39 PM CDT BASIC METABOLIC PANEL Routine 08/08/2022 9:39 PM CDT FL MODIFIED BARIUM SWALLOW W VIDEO IP Routine 08/08/2022 2:52 PM CDT WOOD FINISHER APPRENTICE EVALUATE AND TREAT VIDEOFLUOROSCOPIC SWALLOW STUDY Routine 08/08/2022 2:36 PM CDT EGFR Routine 08/07/2022 7:55 PM CDT CBC WITHOUT DIFFERENTIAL Routine 023 7:55 PM CDT MAGNESIUM Routine 08/07/2022 7:55 PM CDT BASIC METABOLIC PANEL Routine 08/07/2022 7:55 PM CDT URINALYSIS AND REFLEX TO MICROSCOPIC AND CULTURE Routine 08/07/2022 4:44 PM CDT URINALYSIS, MICROSCOPIC ONLY Routine 08/07/2022 4:44 PM CDT EGFR Routine 08/06/2022 11:49 PM CDT CBC WITHOUT DIFFERENTIAL Routine 023 11:49 PM CDT MAGNESIUM Routine 08/06/2022 11:49 PM CDT BASIC METABOLIC PANEL Routine 08/06/2022 11:49 PM CDT EGFR Routine 08/05/2022 11:46 PM CDT CBC WITHOUT DIFFERENTIAL Routine 023 11:46 PM CDT MAGNESIUM Routine 08/05/2022 11:46 PM CDT BASIC METABOLIC PANEL Routine 08/05/2022 11:46 PM CDT TRANSTHORACIC ECHO (TTE) COMPLETE W DOPPLER/CF W CONTRAST STAT 08/05/2022 10:40 AM CDT EGFR Routine 08/04/2022 9:10 PM CDT CBC WITHOUT DIFFERENTIAL Routine 023 9:10 PM CDT MAGNESIUM Routine 08/04/2022 9:10 PM CDT BASIC METABOLIC PANEL Routine 08/04/2022 9:10 PM CDT XR ABDOMEN AP 1 VIEW ED Urgent/IP Urgent 08/04/2022 10:[address] HEAD WO CONTRAST Timed 08/04/2022 4 :21 AM CDT TROPONIN I HIGH-SENSITIVITY 6-HOUR Timed 08/04/2022 4:19 AM CDT TROPONIN I HIGH-SENSITIVITY 4-HOUR Timed 08/04/2022 2:18 AM CDT CRITICAL RESULT CALLBACK CARDIO CHEM Timed 08/04/2022 2:18 AM CDT TROPONIN I HIGH-SENSITIVITY SERIES (BASELINE, 2HR, 4HR, 6HR) STAT 08/03/2022 10:20 PM CDT REPOSITION ENDOTRACHEAL TUBE Routine 08/03/2022 9:08 PM CDT EGFR Timed 08/03/2022 9:00 PM CDT PHOSPHORUS Timed 08/03/2022 9:00 PM CDT MAGNESIUM Timed 08/03/2022 9:00 PM CDT COMPREHENSIVE METABOLIC PANEL Timed 08/03/2022 9:00 PM CDT XR CHEST 1 VIEW ED Urgent/IP Urgent 08/03/2022 8:19 PM CDT URINALYSIS AND REFLEX TO MICROSCOPIC AND CULTURE Routine 08/03/2022 8:03 PM CDT URINALYSIS, MICROSCOPIC ONLY Routine 08/03/2022 8:03 PM CDT TROPONIN I HIGH-SENSITIVITY SERIES (BASELINE, 2HR, 4HR, 6HR) STAT 08/03/2022 7:57 PM CDT EGFR STAT 08/03/2022 7:57 PM CDT APTT STAT 08/03/2022 7:57 PM CDT PROTIME-INR STAT 08/03/2022 7:57 PM CDT CBC WITHOUT DIFFERENTIAL STAT 023 7:57 PM CDT HC ANTIBODY SCREEN RBC STAT 7:57 PM CDT PHOSPHORUS STAT 08/03/2022 7:57 PM CDT MAGNESIUM STAT 08/03/2022 7:57 PM CDT HEMOGLOBIN A1C STAT 08/03/2022 7:57 PM CDT BLOOD GAS, ARTERIAL Routine 08/03/2022 7 :57 PM CDT LIPID PANEL STAT 08/03/2022 7:57 PM CDT COMPREHENSIVE METABOLIC PANEL STAT 08/03/2022 7:57 PM CDT ECG 12-LEAD STAT 08/03/2022 7:35 PM CDT POCT GLUCOSE DEVICE Routine 08/03/2022 7 :15 PM CDT PERCUTANEOUS ARTERIAL THROMBECTOMY, INTRACRANIAL Critical/Life- Threatening 08/03/2022 7:08 PM CDT POC BLOOD GAS AND CHEMISTRIES, ARTERIAL Routine 08/03/2022 5:[address] STROKE PROTOCOL WO CONTRAST Critical/Life- Threatening 08/03/2022 4:[address] CHEST ABDOMEN PELVIS W CONTRAST ED 08/03/2022 4:46 PM CDT ECG 12-LEAD STAT 08/03/2022 4:36 PM CDT URINALYSIS AND REFLEX TO MICROSCOPIC STAT 08/03/2022 4:24 PM CDT URINALYSIS, MICROSCOPIC ONLY STAT 08/03/2022 4:24 PM CDT B CHECK SAMPLE STAT 08/03/2022 4:09 PM CDT TROPONIN I HIGH-SENSITIVITY SERIES (BASELINE, 2HR, 4HR, 6HR) STAT 08/03/2022 3:51 PM CDT EGFR STAT 08/03/2022 3:51 PM CDT DIFFERENTIAL AUTO STAT 08/03/2022 3:5 1 PM CDT CRITICAL RESULT CALLBACK CHEMISTRY STAT 08/03/2022 3:51 PM CDT CBC WITH AUTO DIFFERENTIAL STAT 08/03/2022 3:51 PM CDT TYPE AND SCREEN STAT 08/03/2022 3:51 PM CDT COMPREHENSIVE METABOLIC PANEL STAT 08/03/2022 3:51 PM CDT POCT GLUCOSE DEVICE Routine 08/03/2022 3 :49 PM CDT POCT PROTHROMBIN TIME, WHOLE BLOOD Routine 08/03/2022 3:48 PM CDT IN CRITICAL CARE ILL/INJURED PATIENT INIT 30-74 MIN Routine 08/03/2022 11:21 AM CDT documented in this encounter Results * (ABNORMAL) eGFR (08/11/2022 9:54 PM CDT) [facility] eGFR 79(L) 90 - 130 mL/min/1. 73 m2 [facility] Comment: Interpretive Data Reference Interval Normal ?>/= [...] interpretive data was last reviewed 2021. Blood 08/11/2022 9:54 PM CDT 08/12/2022 1:29 AM CDT us Alice Yoo NP LAB BLOOD ORDERABLES Final Resul t [facility] Department of Laboratories [place], [place] [id number] * (ABNORMAL) CBC without differential (08/11/2022 9:54 PM CDT) WBC 8.2 3.8 - 9.9 K/cumm [facility] Hgb 11.5(L) 11.9 - 15.5 g/dL [facility] Hct 34.5(L) 35.6 - 45.5 % [facility] Plt 289 150 - 400 K/cumm [facility] MPV 11.0 9.1 - 12.3 fL [facility] RBC 3.69(L) 3.90 - 5.20 M/cumm [facility] MCV 93.5 81.3 - 96.4 fL [facility] MCH 31.2 27.1 - 33.3 pg [facility] MCHC 33.3 32.3 - 35.7 g/dL [facility] RDW CV 13.2 11.1 - 14.9 % [facility] RDW SD 45.7 35.7 - 48.1 fL [facility] NRBC abs 0.00 0.00 - 0.01 K/cumm [facility] Blood 08/11/2022 9:54 PM CDT 08/12/2022 1:29 AM CDT Adryan Bailon MD LAB BLOOD ORDERABLES Final Result [facility] [place] [address] * Magnesium (08/11/2022 9:54 PM CDT) [facility] Magnesium 2.2 1.4 - 2.5 mg/dL [facility] Blood 08/11/2022 9:54 PM CDT 08/12/2022 1:29 AM CDT Anamika Nazario NP LAB BLOOD ORDERABLES Fin al Result Performing Organization Address City/[facility]/ZIP Co de Phone Number [facility] [place] [address] * (ABNORMAL) Basic metabolic panel (08/11/2022 9:54 PM CDT) Pathologist [facility] Sodium 141 135 - 145 mmol/L [facility] Potassium, pl 3.9 3.3 - 4.9 mmol/L [facility] Chloride 100 97 - 110 mmol/L [facility] CO2 31 22 - 32 mmol/L [facility] Anion gap 10 2 - 15 mmol/L [facility] BUN 29(H) 8 - 25 mg/dL [facility] Creatinine 0.75 0.60 - 1.10 mg/dL [facility] Glucose 90 70 - 199 mg/dL [facility] Comment: Interpretive Data Fasting glucose >/= 126 [...] 2022. Calcium 9.3 8.5 - 10.3 mg/dL [facility] Blood 08/11/2022 9:54 PM CDT 08/12/2022 1:29 AM CDT us Alice Yoo [employer] LAB BLOOD ORDERABLES Final Resul t [facility] [place] [address] * (ABNORMAL) eGFR (08/11/2022 5:47 AM CDT) eGFR 79(L) 90 - 130 mL/min/1. 73 m2 [facility] Comment: Interpretive Data Reference Interval Normal ?>/= [...] interpretive data was last reviewed 2021. Blood 08/11/2022 5:47 AM CDT 08/11/2022 6:08 AM CDT us Alice Yoo NP LAB BLOOD ORDERABLES Final Resul t [facility] [place] [address] * COVID-19 Coronavirus RNA Nasopharyngeal (08/11/2022 5:47 AM CDT) COVID-19 RNA Negative Negative [facility] Nasopharyngeal 08/11/2022 5: 47 AM CDT 08/11/2022 5:59 AM CDT Narrative [facility] - 08/11/2022 6:33 AM CDT Is the patient experiencing any symptoms consistent with COVID (eg. Fever, cough, shortness of breath)?->No What is the reason for testing?->Bed placement or semi-private room (Rapid) ??Interpretive data: Synonyms for this test include: PCR and NAAT . ??This test is performed using the [employer] Xpert Xpress plus assay. This is a real-time RT-PCR test intended for the qualitative detection of nucleic acid from the SARS-CoV-2. This assay has been reviewed by the FDA for Emergency Use Authorization (EUA). The performance characteristics have been verified by the performing laboratory. Results must be considered in the clinical context and a negative result does not rule out infection. Interpretive data last revised August 22, 2021. ??Interpretive data: Synonyms for this test include: PCR and NAAT . ??This test is performed using the [employer] Xpert Xpress plus assay. This is a real-time RT-PCR test intended for the qualitative detection of nucleic acid from the SARS-CoV-2. This assay has been reviewed by the FDA for Emergency Use Authorization (EUA). The performance characteristics have been verified by the performing laboratory. Results must be considered in the clinical context and a negative result does not rule out infection. Interpretive data last revised August 22, 2021. Foreign Melendez MD PhD LAB MICROBIOLOGY - GENERAL ORDERABLES Final Result Performing Organization Address City/[facility]/ZIP Co de Phone Number [facility] [place] [place] [address] * (ABNORMAL) CBC without differential (08/11/2022 5:47 AM CDT) WBC 7.7 3.8 - 9.9 K/cumm [facility] Hgb 11.6(L) 11.9 - 15.5 g/dL [facility] Hct 35.0(L) 35.6 - 45.5 % [facility] Plt 271 150 - 400 K/cumm [facility] MPV 10.5 9.1 - 12.3 fL [facility] RBC 3.72(L) 3.90 - 5.20 M/cumm [facility] MCV 94.1 81.3 - 96.4 fL [facility] MCH 31.2 27.1 - 33.3 pg [facility] MCHC 33.1 32.3 - 35.7 g/dL [facility] RDW CV 13.4 11.1 - 14.9 % [facility] RDW SD 46.2 35.7 - 48.1 fL [facility] NRBC abs 0.00 0.00 - 0.01 K/cumm [facility] Blood 08/11/2022 5:47 AM CDT 08/11/2022 6:09 AM CDT us Adryan Bailon MD LAB BLOOD ORDERABLES Final Result Performing Organization Address City/[facility]/ZIP Co de Phone Number [facility] Department [place] [address] * Magnesium (08/11/2022 5:47 AM CDT) Magnesium 2.1 1.4 - 2.5 mg/dL [facility] Blood 08/11/2022 5:47 AM CDT 08/11/2022 6:08 AM CDT Anamika Nazario [employer] LAB BLOOD ORDERABLES Fin al Result [facility] [place] [address] * (ABNORMAL) Basic metabolic panel (08/11/2022 5:47 AM CDT) Pathologist [facility] Sodium 140 135 - 145 mmol/L [facility] Potassium, pl 4.1 3.3 - 4.9 mmol/L [facility] Chloride 101 97 - 110 mmol/L [facility] CO2 30 22 - 32 mmol/L [facility] Anion gap 9 2 - 15 mmol/L [facility] BUN 31(H) 8 - 25 mg/dL [facility] Creatinine 0.75 0.60 - 1.10 mg/dL [facility] Glucose 96 70 - 199 mg/dL [facility] Comment: Interpretive Data Fasting glucose >/= 126 [...] interpretive data was last revised 2022. Calcium 8.9 8.5 - 10.3 mg/dL [facility] Blood 08/11/2022 5:47 AM CDT 08/11/2022 6:08 AM CDT Alice Yoo [employer] LAB BLOOD ORDERABLES Final Resul t Performing Organization Address [facility] de Phone Number [facility] Department [place] [address] * (ABNORMAL) CBC without differential (08/09/2022 9:30 PM CDT) [facility] WBC 9.7 3.8 - 9.9 K/cumm [facility] Hgb 11.3(L) 11.9 - 15.5 g/dL [facility] Hct 33.7(L) 35.6 - 45.5 % [facility] Plt 265 150 - 400 K/cumm [facility] MPV 10.8 9.1 - 12.3 fL [facility] RBC 3.54(L) 3.90 - 5.20 M/cumm [facility] MCV 95.2 81.3 - 96.4 fL [facility] MCH 31.9 27.1 - 33.3 pg [facility] MCHC 33.5 32.3 - 35.7 g/dL [facility] RDW CV 13.8 11.1 - 14.9 % [facility] RDW SD 48.1 35.7 - 48.1 fL [facility] NRBC abs 0.00 0.00 - 0.01 K/cumm [facility] Blood 08/09/2022 9:30 PM CDT 08/09/2022 9:51 PM CDT Adryan Bailon MD LAB BLOOD ORDERABLES Final Result Performing Organization Address [facility] Co de Phone Number [facility] Department [place] [address] * (ABNORMAL) eGFR (08/09/2022 8:39 PM CDT) [facility] eGFR 77(L) 90 - 130 mL/min/1. 73 m2 [facility] Comment: Interpretive Data Reference Interval Normal ?>/= [...] interpretive data was last reviewed 2021. Blood 08/09/2022 8:39 PM CDT 08/09/2022 8:51 PM CDT Alice Yoo [employer] LAB BLOOD ORDERABLES Final Resul t Performing Organization Address [facility] Co de Phone Number [facility] Department [place] [address] * Magnesium (08/09/2022 8:39 PM CDT) Magnesium 2.2 1.4 - 2.5 mg/dL [facility] Blood 08/09/2022 8:39 PM CDT 08/09/2022 8:51 PM CDT us Anamika Nazario [employer] LAB BLOOD ORDERABLES Fin al Result Performing Organization Address [facility] Co de Phone Number [facility] [place] [address] * (ABNORMAL) Basic metabolic panel (08/09/2022 8:39 PM CDT) Sodium 141 135 - 145 mmol/L [facility] Potassium, pl 4.1 3.3 - 4.9 mmol/L [facility] Chloride 100 97 - 110 mmol/L [facility] CO2 29 22 - 32 mmol/L [facility] Anion gap 12 2 - 15 mmol/L [facility] BUN 31(H) 8 - 25 mg/dL [facility] Creatinine 0.77 0.60 - 1.10 mg/dL [facility] Glucose 112 70 - 199 mg/dL [facility] Comment: Interpretive Data Fasting glucose >/= 126 [...] interpretive data was last revised 2022. Calcium 9.5 8.5 - 10.3 mg/dL [facility] Blood 08/09/2022 8:39 PM CDT 08/09/2022 8:51 PM CDT us Alice Yoo NP LAB BLOOD ORDERABLES Final Resul t [facility] [place] [address] * CT Head WO Contrast (08/09/2022 12:34 PM CDT) Anatomical Region Laterality Modality Head and Neck N/A Computed Tomogra phy 08/09/2022 1:46 PM CDT Impressions 08/09/2022 2:30 PM CDT Interval increased hypoattenuation of the left postcentral gyrus, concerning for an evolving infarction in this patient with right-sided weakness. ??Recommend further evaluation with brain MRI. ?? Dictated by: Arturo Ramos MD The radiology attending physician has personally reviewed this study, and had reviewed and/or edited this written report and agrees with it. Electronically signed by: Tanner Telles M.D, PHD Narrative 08/09/2022 2:30 PM CDT EXAMINATION: CT head without contrast HISTORY: Atrial fibrillation, right-sided weakness. TECHNIQUE: Noncontrast CT of the brain was performed with images acquired from skull base to vertex. COMPARISON: CT head from August 04, 2022. FINDINGS: Topogram demonstrates no lytic lesions or fractures. There is no acute intracranial hemorrhage. There is hypoattenuation involving the left precentral gyrus, mildly increased when compared to prior CT from August 04, 2022, and this may represent an evolving infarction. There is generalized cerebral and loss associated ex vacuo dilatation of ventricular system. ??There is periventricular subcortical white matter hypoattenuation, most likely related to chronic small vessel disease. ??Atherosclerotic ossifications are seen in the carotid siphons and vertebral arteries. No mass effect or midline shift is present. The doan-white matter differentiation is normal. Bilateral eye lens replacement. The visualized portions of the mastoids are normal. There is mucosal thickening of the left more than right axillary sinuses.. No fractures are identified. Procedure Note Tanner Telles MD PhD - 08/09/2022 EXAMINATION: CT head without contrast HISTORY: Atrial fibrillation, right-sided weakness. TECHNIQUE: Noncontrast CT of the brain was performed with images acquired from skull base to vertex. COMPARISON: CT head from August 04, 2022. FINDINGS: Topogram demonstrates no lytic lesions or fractures. There is no acute intracranial hemorrhage. There is hypoattenuation involving the left precentral gyrus, mildly increased when compared to prior CT from August 04, 2022, and this may represent an evolving infarction. There is generalized cerebral and loss associated ex vacuo dilatation of ventricular system. There is periventricular subcortical white matter hypoattenuation, most likely related to chronic small vessel disease. Atherosclerotic ossifications are seen in the carotid siphons and vertebral arteries. No mass effect or midline shift is present. The doan-white matter differentiation is normal. Bilateral eye lens replacement. The visualized portions of the mastoids are normal. There is mucosal thickening of the left more than right axillary sinuses.. No fractures are identified. IMPRESSION: Interval increased hypoattenuation of the left postcentral gyrus, concerning for an evolving infarction in this patient with right-sided weakness. Recommend further evaluation with brain MRI. Dictated by: Arturo Ramos MD The radiology attending physician has personally reviewed this study, and had reviewed and/or edited this written report and agrees with it. Electronically signed by: Tanner Telles M.D, PHD Adryan Bailon MD IMG CT PROCEDURES Final Re sult * POCT glucose (08/08/2022 10:53 PM CDT) Pathologist [facility] Glucose, POC 124 70 - 199 mg/dL [facility] Blood 08/08/2022 10:5 3 PM CDT 08/08/2022 10:53 PM CDT Adryan Bailon MD LAB POCT ORDERABLES - JUVENCIO CE Final Result Performing Organization Address City/State/[facility] Co de Phone Number [facility] [place] [address] * (ABNORMAL) eGFR (08/08/2022 9:39 PM CDT) Pathologist [facility] eGFR 85(L) 90 - 130 mL/min/1. 73 m2 [facility] Comment: Interpretive Data Reference Interval Normal ?>/= [...] interpretive data was last reviewed 2021. Blood 08/08/2022 9:39 PM CDT 08/08/2022 9:53 PM CDT Alice Yoo [employer] LAB BLOOD ORDERABLES Final Resul t [facility] [place] [address] * Magnesium (08/08/2022 9:39 PM CDT) Pathologist [facility] Magnesium 2.1 1.4 - 2.5 mg/dL [facility] Blood 08/08/2022 9:39 PM CDT 08/08/2022 9:53 PM CDT us Anamika Nazario [employer] LAB BLOOD ORDERABLES Fin al Result Performing Organization Address City/[facility]/ZIP Co de Phone Number [facility] [place] [address] * (ABNORMAL) CBC without differential (08/08/2022 9:39 PM CDT) WBC 13.2(H) 3.8 - 9.9 K/cumm [facility] Hgb 12.4 11.9 - 15.5 g/dL [facility] Hct 37.2 35.6 - 45.5 % [facility] Plt 263 150 - 400 K/cumm [facility] MPV 10.8 9.1 - 12.3 fL [facility] RBC 3.96 3.90 - 5.20 M/cumm [facility] MCV 93.9 81.3 - 96.4 fL [facility] MCH 31.3 27.1 - 33.3 pg [facility] MCHC 33.3 32.3 - 35.7 g/dL [facility] RDW CV 14.0 11.1 - 14.9 % [facility] RDW SD 47.9 35.7 - 48.1 fL [facility] NRBC abs 0.00 0.00 - 0.01 K/cumm [facility] Blood 08/08/2022 9:39 PM CDT 08/08/2022 9:53 PM CDT us Alice Yoo NP LAB BLOOD ORDERABLES Final Resul t [facility] [place] [address] * (ABNORMAL) Basic metabolic panel (08/08/2022 9:39 PM CDT) Sodium 141 135 - 145 mmol/L [facility] Potassium, pl 4.1 3.3 - 4.9 mmol/L [facility] Chloride 100 97 - 110 mmol/L [facility] CO2 33(H) 22 - 32 mmol/L [facility] Anion gap 8 2 - 15 mmol/L [facility] BUN 20 8 - 25 mg/dL [facility] Creatinine 0.71 0.60 - 1.10 mg/dL [facility] Glucose 119 70 - 199 mg/dL [facility] Comment: Interpretive Data Fasting glucose >/= 126 [...] 2022. Calcium 9.3 8.5 - 10.3 mg/dL [facility] Blood 08/08/2022 9:39 PM CDT 08/08/2022 9:53 PM CDT us Alice Yoo PRECIOUS LAB BLOOD ORDERABLES Final Resul t [facility] [place] [address] * [place] Modified Barium Swallow W Video (08/08/2022 2:52 PM CDT) Anatomical Region Laterality Modality Head and Neck N/A Computed Radiogr aphy 08/08/2022 2:56 PM CDT Impressions 08/08/2022 3:55 PM CDT The swallowing mechanism is abnormal; see above [...] it. Electronically signed by: Demetrius Matta M.D. Narrative 08/08/2022 3:55 PM CDT EXAMINATION: MODIFIED BARIUM SWALLOW HISTORY: Dysphagia. TECHNIQUE: This procedure was completed in conjunction with a Speech Language Pathologist. The patient was given barium of multiple different consistencies to swallow. Video fluoroscopy was employed during the exam. FINDINGS: Oral-pharyngeal swallow function is mildly impaired. Penetration: Yes There is penetration of thin liquid. Penetration is sensed. The penetrated material ??is cleared. Aspiration: No Residue:No Other comments: Feeding tube is in place. Procedure Note Demetrius Matta MD - 08/08/2022 EXAMINATION: MODIFIED BARIUM SWALLOW HISTORY: Dysphagia. TECHNIQUE: This procedure was completed in conjunction with a Speech Language Pathologist. The patient was given barium of multiple different consistencies to swallow. Video fluoroscopy was employed during the exam. FINDINGS: Oral-pharyngeal swallow function is mildly impaired. Penetration: Yes There is penetration of thin liquid. Penetration is sensed. The penetrated material is cleared. Aspiration: No Residue:No Other comments: Feeding tube is in place. IMPRESSION: The swallowing mechanism is abnormal; see above [...] it. Electronically signed by: Demetrius Matta M.D. Adryan Bailon MD IMG FLUOROSCOPY PROCEDURES Final Result * WOOD FINISHER APPRENTICE Evaluate and Treat (VFSS) (08/08/2022 2:36 PM CDT) Narrative Cee Mccallum SLP - 08/08/2022 2:36 PM CDT Cee Mccallum SLP ? 08/08/2022 ??4:18 PM Speech-Language Pathology: Videofluoroscopic Study of Swallow (VFSS/MBS) HPI/PMH 82y/o female with PMH of CAD, AR, SSS s/p Biotronik pacemaker, Atrial fibrillation (previously on Eliquis, s/p AV node ablation 2018), HLD, HTN, CHF. She is admitted to the NNICU with acute expressive aphasia and RIGHT-sided weakness with witnessed onset at 1305 08/03. 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 She is now s/p TNK and MT with TICI 2B, 1 pass aspiration, admitted to NNICU for further care. Respiratory/Intubation Status: intubated 08/03-; currently on room air Imaging:hCT 08/04: 1. ??No acute intracranial hemorrhage. No large acute territory infarct. 2. ??Previously described focal hyperdensity within the left ICA terminus is better seen on prior study. CXR 08/03: Mild basilar atelectasis seen with possible tiny pleural. No pneumothorax is seen. Trace pulmonary edema is noted. No pneumonia. Precautions: fall, GENNY, aspiration Current Diet Order: NPO Baseline Feeding Status: Regular General Information Abena Giron 08/08/22 WOOD FINISHER APPRENTICE Received On: 08/08/22 General Observations: Pt was seen sitting upright in radiology chair. Alert and agreeable to exam. Reason for Referral: further define swallow physiology Pain Score: 0 - No pain If pain >4, was RN notified? N/A Patient Stated Goal/Comments: none stated Clinical Impression & Professional Recommendations Diet Solids Recommendation: Pureed Diet Liquids Recommendations: Thin/regular Recommended Form of Medications: Crushed, With puree Compensatory Strategies/Modifications: Slow rate, Single sips, Small bites, Alternate solids and liquids Postural Recommendations: Upright Assistance with feeding/swallowing: Assist with aggressive oral hygiene prior to po, One to one assist with meals Specialty Instructions: good oral care 2-3x/day including teeth brushing (gums and tongue) with suction while upright at 90 and with 100% assistance to improve the oral biome and reduce the risk of aspiration related complications (i.e., PNA) Overall Clinical Impression/Additional Information: 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 However, this was noted to fully revert back into the pharyngeal space upon completion of the swallow. No penetration observed with puree or solids. No aspiration occurred with any consistency during the exam. Trace to mild valleculae and pyriform sinus residue present across consistencies. Residue cleared with repeat swallow. Of note, coughing occurred during the exam in the absence of penetration or aspiration Assessment Details & Results Purpose and Procedure of Videofluoroscopic Study of Swallow: Videofluoroscopic Study of Swallow completed to assess oropharyngeal swallow function and safety/efficiency of the swallow so that diet recommendations can be made. This test is completed in conjunction with Radiology. Results of this test are indicative of performance at the time of the exam. Standard procedure is in lateral view at 90 degrees. Consistencies Administered: Thin liquids, Purees, Solids Administered consistencies contain barium product. Thin Liquids: Laryngeal Penetration: Present Aspiration Present: No Penetration Aspiration Scale-Thin: 2-Material enters the airway, remains above the vocal folds and is ejected from the airway Purees: Laryngeal Penetration: None Aspiration Present: No Penetration Aspiration Scale-Puree: 1-Material does not enter airway Solids: Laryngeal Penetration: None Aspiration Present: No Penetration Aspiration Scale-Solids: 1-Material does not enter airway MBSImp: MBSImp Results: Lip closure : 3-Escape progressing to mid-chin Tongue Control with Bolus Hold: 1-Escape to lateral buccal cavity/floor of mouth Bolus Preparation/Mastication : 2-Disorganized chewing/mashing with solid pieces of bolus unchewed Bolus Transport/Lingual Motion : 3-Repetitive/disorganized tongue motion Oral Residue: 2-Residue collection on oral structures Initiation of Pharyngeal Swallow : 3-Bolus head in pyriforms Soft Palate : 0-No bolus between soft palate and pharyngeal wall Laryngeal Elevation : 1-Partial superior movement of thyroid cartilage with partial approximation of arytenoids to epiglottic petiole Anterior Hyoid Excursion: 1-Partial anterior movement Epiglottic Movement: 1-Partial inversion Laryngeal Vestibular Closure: 1-Incomplete, narrow column of air/contrast in laryngeal vestibule Pharyngeal Stripping Wave: 1-Present but diminished Pharyngeal Contraction (AP view only): Not assessed, No AP view Pharyngoesophageal Segment Opening : 1-Partial distension/partial duration, partial obstruction of flow Tongue Base Retraction : 2-Narrow column of contrast or air between tongue base and posterior pharyngeal wall Pharyngeal Residue : 2-Collection of residue within or on pharyngeal structures Esophageal Clearance (upright position): Not assessed, No AP view Dysphagia Outcome and Severity Scale: Dysphagia Outcomes and Severity Scale: 5 Mild dysphagia Levels 1 & 2 on the REGINALDO indicate need for nonoral nutrition. Treatment Treatment was not provided this date. Please reference care plan for treatment goals and details, if indicated. 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 us Adryan Bailon MD WOOD FINISHER APPRENTICE ORDERABLES Final Resu lt * (ABNORMAL) eGFR (08/07/2022 7:55 PM CDT) [facility] eGFR 89(L) 90 - 130 mL/min/1. 73 m2 [facility] Comment: Interpretive Data Reference Interval Normal ?>/= [...] interpretive data was last reviewed 2021. Blood 08/07/2022 7:55 PM CDT 08/07/2022 8:10 PM CDT us Alice Yoo FIREARMS INSTRUCTOR LAB BLOOD ORDERABLES Final Resul t Performing Organization Address City/[facility]/ZIP Co de Phone Number [facility] [place] [address] * Magnesium (08/07/2022 7:55 PM CDT) Magnesium 2.1 1.4 - 2.5 mg/dL [facility] Blood 08/07/2022 7:55 PM CDT 08/07/2022 8:10 PM CDT us Anamika Nazario FIREARMS INSTRUCTOR LAB BLOOD ORDERABLES Fin al Result [facility] [place] [address] * (ABNORMAL) CBC without differential (08/07/2022 7:55 PM CDT) WBC 11.7(H) 3.8 - 9.9 K/cumm [facility] Hgb 12.8 11.9 - 15.5 g/dL [facility] Hct 38.4 35.6 - 45.5 % [facility] Plt 238 150 - 400 K/cumm [facility] MPV 11.2 9.1 - 12.3 fL [facility] RBC 4.12 3.90 - 5.20 M/cumm [facility] MCV 93.2 81.3 - 96.4 fL [facility] MCH 31.1 27.1 - 33.3 pg [facility] MCHC 33.3 32.3 - 35.7 g/dL [facility] RDW CV 14.1 11.1 - 14.9 % [facility] RDW SD 48.3(H) 35.7 - 48.1 fL [facility] NRBC abs 0.00 0.00 - 0.01 K/cumm [facility] Blood 08/07/2022 7:55 PM CDT 08/07/2022 8:10 PM CDT us Alice Yoo NP LAB BLOOD ORDERABLES Final Resul t [facility] [place] [address] * Basic metabolic panel (08/07/2022 7:55 PM CDT) Sodium 141 135 - 145 mmol/L [facility] Potassium, pl 3.8 3.3 - 4.9 mmol/L [facility] Chloride 99 97 - 110 mmol/L [facility] CO2 32 22 - 32 mmol/L [facility] Anion gap 10 2 - 15 mmol/L [facility] BUN 16 8 - 25 mg/dL [facility] Creatinine 0.62 0.60 - 1.10 mg/dL [facility] Glucose 153 70 - 199 mg/dL [facility] Comment: Interpretive Data Fasting glucose >/= 126 [...] interpretive data was last revised 2022. Calcium 9.4 8.5 - 10.3 mg/dL [facility] Blood 08/07/2022 7:55 PM CDT 08/07/2022 8:10 PM CDT us Alice Yoo NP LAB BLOOD ORDERABLES Final Resul t Performing Organization Address [facility] Co de Phone Number [facility] [place] [address] * (ABNORMAL) Urinalysis, microscopic only (08/07/2022 4:44 PM CDT) WBC, ur 6-10(A) 0 - 5 /HPF [facility] RBC, ur >50(A) 0 - 2 /HPF [facility] Epithelial cells, squamous, ur 1-5 0 - 5 /HPF [facility] Mucous, ur Present(A) [facility] Culture Reflex Comment Reflex conditions for urine culture (WBC >10) not met. [facility] Urine, clean voided 08/07/2022 4:44 PM CDT 08/07/2022 4:54 PM CDT us Adryan Bailon MD LAB URINE ORDERABLES Final Result Performing Organization Address [facility] Co de Phone Number [facility] [place] [address] * (ABNORMAL) Urinalysis reflex to microscopic and culture Urine, clean voided (08/07/2022 4:44 PM CDT) Color, ur Straw Yellow [facility] Clarity, ur Clear Clear [facility] Specific gravity, ur 1.014 1.003 - 1.030 [facility] pH, urine 7.5 [facility] Protein, ur ql Negative Negative [facility] Glucose, ur ql Negative Negative [facility] Ketones, ur Negative Negative [facility] Bilirubin, ur Negative Negative [facility] Blood, ur 3+(A) Negative [facility] Urobilinogen, ur 2.0(A) <2.0 mg/dL [facility] Nitrite, ur Negative Negative [facility] Leukocyte esterase, ur Trace(A) Negative [facility] UA reflex comment Reflex to microscopic UA will be performed. [facility] Urine, clean voided 08/07/2022 4:44 PM CDT 08/07/2022 4:54 PM CDT Narrative [facility] - 08/07/2022 5:07 PM CDT ?? Urine pH is affected by diet, medications, systemic acid-base disturbances, and renal tubular function. ??pH may affect urinary stone formation. ??For example, urine pH below 6.0 may help reduce the tendency for calcium phosphate stones and pH greater than 6.0 may reduce the tendency for uric acid stone formation. Source: [employer]. Last revised 04-03-2017 Adryan Bailon MD LAB MICROBIOLOGY - GENERAL ORDERABLES Final Result [facility] [place] [address] * (ABNORMAL) eGFR (08/06/2022 11:49 PM CDT) eGFR 89(L) 90 - 130 mL/min/1. 73 m2 [facility] Comment: Interpretive Data Reference Interval Normal ?>/= [...] interpretive data was last reviewed 2021. Blood 08/06/2022 11:4 9 PM CDT 08/07/2022 12:27 AM CDT Alice Yoo FIREARMS INSTRUCTOR LAB BLOOD ORDERABLES Final Resul t Performing Organization Address City/[facility]/ZIP Co de Phone Number [facility] [place] [address] * Magnesium (08/06/2022 11:49 PM CDT) Magnesium 1.8 1.4 - 2.5 mg/dL [facility] Blood 08/06/2022 11:4 9 PM CDT 08/07/2022 12:27 AM CDT Anamika Nazario FIREARMS INSTRUCTOR LAB BLOOD ORDERABLES Fin al Result Performing Organization Address [facility]/ZIP Co de Phone Number [facility] [place] [address] * (ABNORMAL) CBC without differential (08/06/2022 11:49 PM CDT) WBC 12.3(H) 3.8 - 9.9 K/cumm [facility] Hgb 11.1(L) 11.9 - 15.5 g/dL [facility] Hct 34.8(L) 35.6 - 45.5 % [facility] Plt 184 150 - 400 K/cumm [facility] MPV 11.2 9.1 - 12.3 fL [facility] RBC 3.73(L) 3.90 - 5.20 M/cumm [facility] MCV 93.3 81.3 - 96.4 fL [facility] MCH 29.8 27.1 - 33.3 pg [facility] MCHC 31.9(L) 32.3 - 35.7 g/dL [facility] RDW CV 14.2 11.1 - 14.9 % [facility] RDW SD 48.1 35.7 - 48.1 fL [facility] NRBC abs 0.00 0.00 - 0.01 K/cumm [facility] Blood 08/06/2022 11:4 9 PM CDT 08/07/2022 12:28 AM CDT us Alice Yoo FIREARMS INSTRUCTOR LAB BLOOD ORDERABLES Final Resul t [facility] [place] [address] * Basic metabolic panel (08/06/2022 11:49 PM CDT) Pathologist [facility] Sodium 140 135 - 145 mmol/L [facility] Potassium, pl 4.0 3.3 - 4.9 mmol/L [facility] Chloride 103 97 - 110 mmol/L [facility] CO2 31 22 - 32 mmol/L [facility] Anion gap 6 2 - 15 mmol/L [facility] BUN 12 8 - 25 mg/dL [facility] Creatinine 0.62 0.60 - 1.10 mg/dL [facility] Glucose 179 70 - 199 mg/dL [facility] Comment: Interpretive Data Fasting glucose >/= 126 [...] classification and Diagnosis of Diabetes Diabetes Care 2022; 46: S19-S40. Current interpretive data was last revised 2022. Calcium 8.8 8.5 - 10.3 mg/dL [facility] Blood 08/06/2022 11:4 9 PM CDT 08/07/2022 12:27 AM CDT us Alice Yoo NP LAB BLOOD ORDERABLES Final Resul t [facility] [place] [address] * (ABNORMAL) eGFR (08/05/2022 11:46 PM CDT) eGFR 87(L) 90 - 130 mL/min/1. 73 m2 [facility] Comment: Interpretive Data Reference Interval Normal ?>/= [...] of Race in Diagnosing Kidney Disease, JASN 202). The CKD-EPI equation should not be used for patients with unstable renal function and has not been validated in children and those over 70. Current interpretive data was last reviewed 2021. Blood 08/05/2022 11:4 6 PM CDT 08/06/2022 12:03 AM CDT Alice Fredo FIREARMS INSTRUCTOR LAB BLOOD ORDERABLES Final Resul t Performing Organization Address City/[facility] Co de Phone Number [facility] [place] [address] * Magnesium (08/05/2022 11:46 PM CDT) [facility] Magnesium 2.0 1.4 - 2.5 mg/dL [facility] Blood 08/05/2022 11:4 6 PM CDT 08/06/2022 12:03 AM CDT Anamika Nazario FIREARMS INSTRUCTOR LAB BLOOD ORDERABLES Fin al Result Performing Organization Address [facility] de Phone Number [facility] [place] [address] * (ABNORMAL) CBC without differential (08/05/2022 11:46 PM CDT) Pathologist [facility] WBC 10.1(H) 3.8 - 9.9 K/cumm [facility] Hgb 11.7(L) 11.9 - 15.5 g/dL [facility] Hct 36.2 35.6 - 45.5 % [facility] Plt 173 150 - 400 K/cumm [facility] MPV 11.0 9.1 - 12.3 fL [facility] RBC 3.78(L) 3.90 - 5.20 M/cumm [facility] MCV 95.8 81.3 - 96.4 fL [facility] MCH 31.0 27.1 - 33.3 pg [facility] MCHC 32.3 32.3 - 35.7 g/dL [facility] RDW CV 14.7 11.1 - 14.9 % [facility] RDW SD 52.1(H) 35.7 - 48.1 fL [facility] NRBC abs 0.00 0.00 - 0.01 K/cumm [facility] Blood 08/05/2022 11:4 6 PM CDT 08/06/2022 12:03 AM CDT us Alice Yoo FIREARMS INSTRUCTOR LAB BLOOD ORDERABLES Final Resul t Performing Organization Address City/[facility]/ZIP Co de Phone Number [facility] [place] [address] * (ABNORMAL) Basic metabolic panel (08/05/2022 11:46 PM CDT) Sodium 146(H) 135 - 145 mmol/L [facility] Potassium, pl 4.5 3.3 - 4.9 mmol/L [facility] Chloride 110 97 - 110 mmol/L [facility] CO2 28 22 - 32 mmol/L [facility] Anion gap 8 2 - 15 mmol/L [facility] BUN 13 8 - 25 mg/dL [facility] Creatinine 0.67 0.60 - 1.10 mg/dL [facility] Glucose 168 70 - 199 mg/dL [facility] Comment: Interpretive Data Fasting glucose >/= 126 [...] interpretive data was last revised 2022. Calcium 8.8 8.5 - 10.3 mg/dL [facility] Blood 08/05/2022 11:4 6 PM CDT 08/06/2022 12:03 AM CDT us Alice Yoo FIREARMS INSTRUCTOR LAB BLOOD ORDERABLES Final Resul t Performing Organization Address City/[facility]/ZIP Co de Phone Number [facility] [place] [address] * TRANSTHORACIC ECHO (TTE) COMPLETE W DOPPLER/CF W CONTRAST (08/05/2022 10:40 AM CDT) LV EF 20 % [facility] Anatomical Region Laterality Modality Ultrasound 08/05/2022 7:30 AM CDT Narrative 08/05/2022 11:34 AM CDT Patient name: Abena Giron Date of test: 08/05/2022 Type of test: TTE w/Doppler Hospital #: 0 Date of : 1940 (F) Grain Trader: Luna Canchola RDCS Referring Physician: ANAMIKA NAZARIO MD Contrast Agent: 0.8 ml Optison Administered, (2.2 ml wasted). Contrast Administered by: FUR DRESSER Supervised/Interpreted by: Jaleel Banegas MD Diagnosis: Acute stroke Location: [facility] Reason for test: acute stroke, r/o lv thrombus, h/o hf MV Structure: Normal, ?MV Motion: Normal, ?? Mitral Annulus: Normal AV Structure: tricuspid and is Normal, ?? AV Motion: Normal Aotic root: Normal, ?TM: Normal, ?? PV: Normal Valvular Vegetations: none seen, ?Mass/Thrombi: none seen RA: Normal Measurements: ?M-Mode ?Normal ? Aotic Root: ? <3.8 ? LA: ? <3.8 ? RV: ? <2.8 ? LV(ED): ? <5.7 ? LV(ES): ? Variable ?2D Linear Normal ? Aotic Root: 2.8 cm ?<3.6 ? Ao Indexed: 1.6 cm/M2 <2.0 ? LA: ? <3.8 ? RV: ? 2.7 cm ?<4.2 ? LV(ED): ? 4.6 cm ?<5.3 ? LV(ES): ? 4.2 cm ?<3.5 ?2D Vol. ?? Normal ?Indexed ?? Indexed Normal RA: ? 41.0 ml ? 24.0 ml/M2 ?9-33 ? LA: ? 51.0 ml ? 29.8 ml/M2 ?16-34 ? RV: ? <11.6 ? LV(ED): ? 120.0 ml ??46-106 ?70.2 ml/M2 ?<62 ? LV(ES): ? 99.0 ml ?? 14-42 ? 57.9 ml/M2 ?<25 ?3D Vol. ? Indexed Normal LV(ED): ?<62 ? LV(ES): ?<24 ? LV EF: 20 % (Mod. Parker's) ?? (Normal: >=54%) ?? LV Septum: 1.1 cm ?(Normal: <0.9 cm) Wall Motion Scoring (1=Normal 2=Hypo 3=Akinetic 4=Dyskin./Aneurysm 0=Not visualized) Parasternal Long [place]:MAS=2 BAS=2 MIL=2 SHAYAN=2 Parasternal Short [place]:MAS=2 MIS=2 AR=2 MIL=2 MAL=2 MA=2 Apical 4 Chambers:=2 MIS=2 BIS=2 BAL=2 MAL=2 AL=2 AC=2 Apical 2 Chambers:AI=2 AR=2 BI=2 BA=2 MA=2 AA=2 AC=2 LV Global Longitudinal Strain: RV Global Longitudinal Strain: LV Function: Severe Global reduction in LV Ejection Fraction (EF<30%); EF via modified Parker's. ?? (NOTE: If patient has irreversible LV Cardiac Dysfunction with EF<30%, they are at risk for Sudden Cardiac .) RV Function: mild global hypokinesis Septal Motion: Normal Pericardial Effusion: none seen Atrial Septum: Normal DOPPLER/COLOR FLOW DOPPLER RESULTS: Diastolic Function: indeterminate Tricuspid Valve: mild TV regurgitation Pulmonic Valve: normal PV AV Regurgitation: No AR seen AV Stenosis: no AV Area: ??cm2 AV Pressure Gradient (mmHg): Mean: 0, Peak:0 MV Regurgitation: Mild MR MV Stenosis: no MS MV Area: ??cm2 MV Pressure Gradient (mmHg): Mean: 0 MV ERO: ??cm Regurg. Vol.: ??ml/beat Regurg. Frac.: ??% PA Pressure: 45 mmHg DOPPLER/COLOR FOLOW DOPPLER COMMENTS: No AR seen, Mild MR, no , no MS, mild TV regurgitation, normal PV. Diastolic function: indeterminate CONTRAST: 0.8 ml Optison Administered, (2.2 ml wasted). SUMMARY: Frequent PVCs. Normal LV volume, mass. Severe global LV systolic dysfunction (LVEF 20%). Dyssynchronous LV contraction c/w RV pacing. Indeterminate diastolic function. Normal AV. Mild MR. Normal LA size. Normal RV size with mild hypokinesis. Mild TR. PASP 45 mmHg. Dilated IVC c/w elevated RAP. Wire in RA/RV. Abdominal aortic atherosclerosis. No definite LV thrombus. No images for comparison. Confirmed on ??08/05/2022 - 11:34:56 by Jaleel Banegas MD By signing this report, the attending psychologist social certifies that he or she has personally supervised and interpreted the echocardiogram and has reviewed and or edited and agrees with the written comments contained within the report. Procedure Note Jaleel Banegas MD - 08/05/2022 Patient name: Abena Giron Date of test: 08/05/2022 Type of test: TTE w/Doppler [facility] #: 0 Date of : 1940 (F) Grain Trader: Luna Canchola [facility] [[email or web address]] Referring Physician: ANAMIKA NAZARIO MD Contrast Agent: 0.8 ml Optison Administered, (2.2 ml wasted). Contrast Administered by: FUR DRESSER Supervised/Interpreted by: Jaleel Banegas MD Diagnosis: Acute stroke Location: [facility] Reason for test: acute stroke, r/o lv thrombus, h/o hf MV Structure: Normal, MV Motion: Normal, Mitral Annulus: Normal AV Structure: tricuspid and is Normal, AV Motion: Normal Aotic root: Normal, TM: Normal, PV: Normal Valvular Vegetations: none seen, Mass/Thrombi: none seen RA: Normal Measurements: M-Mode Normal Aotic Root: <3.8 LA: <3.8 RV: <2.8 LV(ED): <5.7 LV(ES): Variable 2D Linear Normal Aotic Root: 2.8 cm <3.6 Ao Indexed: 1.6 cm/M2 <2.0 LA: <3.8 RV: 2.7 cm <4.2 LV(ED): 4.6 cm <5.3 LV(ES): 4.2 cm <3.5 2D Vol. Normal Indexed Indexed Normal RA: 41.0 ml 24.0 ml/M2 9-33 LA: 51.0 ml 29.8 ml/M2 16-34 RV: <11.6 LV(ED): 120.0 ml 46-106 70.2 ml/M2 <62 LV(ES): 99.0 ml 14-42 57.9 ml/M2 <25 3D Vol. Indexed Normal LV(ED): <62 LV(ES): <24 LV EF: 20 % (Mod. Parker's) (Normal: >=54%) LV Septum: 1.1 cm (Normal: <0.9 cm) Wall Motion Scoring (1=Normal 2=Hypo 3=Akinetic 4=Dyskin./Aneurysm 0=Not visualized) Parasternal Long [place]:MAS=2 BAS=2 MIL=2 SHAYAN=2 Parasternal Short [place]:MAS=2 MIS=2 AR=2 MIL=2 MAL=2 MA=2 Apical 4 Chambers:=2 MIS=2 BIS=2 BAL=2 MAL=2 AL=2 AC=2 Apical 2 Chambers:AI=2 AR=2 BI=2 BA=2 MA=2 AA=2 AC=2 LV Global Longitudinal Strain: RV Global Longitudinal Strain: LV Function: Severe Global reduction in LV Ejection Fraction (EF<30%); EF via modified Parker's. (NOTE: If patient has irreversible LV Cardiac Dysfunction with EF<30%, they are at risk for Sudden Cardiac .) RV Function: mild global hypokinesis Septal Motion: Normal Pericardial Effusion: none seen Atrial Septum: Normal DOPPLER/COLOR FLOW DOPPLER RESULTS: Diastolic Function: indeterminate Tricuspid Valve: mild TV regurgitation Pulmonic Valve: normal PV AV Regurgitation: No AR seen AV Stenosis: no AV Area: cm2 AV Pressure Gradient (mmHg): Mean: 0, Peak:0 MV Regurgitation: Mild MR MV Stenosis: no MS MV Area: cm2 MV Pressure Gradient (mmHg): Mean: 0 MV ERO: cm Regurg. Vol.: ml/beat Regurg. Frac.: % PA Pressure: 45 mmHg DOPPLER/COLOR FOLOW DOPPLER COMMENTS: No AR seen, Mild MR, no , no MS, mild TV regurgitation, normal PV. Diastolic function: indeterminate CONTRAST: 0.8 ml Optison Administered, (2.2 ml wasted). SUMMARY: Frequent PVCs. Normal LV volume, mass. Severe global LV systolic dysfunction (LVEF 20%). Dyssynchronous LV contraction c/w RV pacing. Indeterminate diastolic function. Normal AV. Mild MR. Normal LA size. Normal RV size with mild hypokinesis. Mild TR. PASP 45 mmHg. Dilated IVC c/w elevated RAP. Wire in RA/RV. Abdominal aortic atherosclerosis. No definite LV thrombus. No images for comparison. Confirmed on 08/05/2022 - 11:34:56 by Jaleel Banegas MD By signing this report, the attending psychologist social certifies that he or she has personally supervised and interpreted the echocardiogram and has reviewed and or edited and agrees with the written comments contained within the report. us Anamika Nazario NP CV ECHO PROCEDURES Final Result * Magnesium (08/04/2022 9:10 PM CDT) Pathologist [facility] Magnesium 2.1 1.4 - 2.5 mg/dL [facility] Blood 08/04/2022 9:10 PM CDT 08/04/2022 9:33 PM CDT us Citlaly Crump MD LAB BLOOD ORDERABLES Roshni schneider Result [facility] [place] [address] * (ABNORMAL) eGFR (08/04/2022 9:10 PM CDT) Pathologist [facility] eGFR 74(L) 90 - 130 mL/min/1. 73 m2 [facility] Comment: Interpretive Data Reference Interval Normal ?>/= [...] interpretive data was last reviewed 2021. Blood 08/04/2022 9:10 PM CDT 08/04/2022 9:33 PM CDT Alice Yoo FIREAR[employer] INSTRUCTOR LAB BLOOD ORDERABLES Final Resul t Performing Organization Address [facility] Co de Phone Number [facility] [place] [address] * (ABNORMAL) CBC without differential (08/04/2022 9:10 PM CDT) WBC 10.6(H) 3.8 - 9.9 K/cumm [facility] Hgb 11.4(L) 11.9 - 15.5 g/dL [facility] Hct 34.1(L) 35.6 - 45.5 % [facility] Plt 192 150 - 400 K/cumm [facility] MPV 11.1 9.1 - 12.3 fL [facility] RBC 3.64(L) 3.90 - 5.20 M/cumm [facility] MCV 93.7 81.3 - 96.4 fL [facility] MCH 31.3 27.1 - 33.3 pg [facility] MCHC 33.4 32.3 - 35.7 g/dL [facility] RDW CV 14.4 11.1 - 14.9 % [facility] RDW SD 49.2(H) 35.7 - 48.1 fL [facility] NRBC abs 0.00 0.00 - 0.01 K/cumm [facility] Blood 08/04/2022 9:10 PM CDT 08/04/2022 9:33 PM CDT us Alice Yoo NP LAB BLOOD ORDERABLES Final Resul t Performing Organization Address [facility]/ZIP Co de Phone Number [facility] [place] [address] * (ABNORMAL) Basic metabolic panel (08/04/2022 9:10 PM CDT) Sodium 142 135 - 145 mmol/L [facility] Potassium, pl 4.2 3.3 - 4.9 mmol/L [facility] Chloride 111(H) 97 - 110 mmol/L [facility] CO2 25 22 - 32 mmol/L [facility] Anion gap 6 2 - 15 mmol/L [facility] BUN 12 8 - 25 mg/dL [facility] Creatinine 0.80 0.60 - 1.10 mg/dL [facility] Glucose 173 70 - 199 mg/dL [facility] Comment: Interpretive Data Fasting glucose >/= 126 [...] interpretive data was last revised 2022. Calcium 8.3(L) 8.5 - 10.3 mg/dL [facility] Blood 08/04/2022 9:10 PM CDT 08/04/2022 9:33 PM CDT us Alice Yoo NP LAB BLOOD ORDERABLES Final Resul t [facility] [place] [address] * XR Abdomen Ap 1 Vw (08/04/2022 10:26 AM CDT) Anatomical Region Laterality Modality Body, Abdomen N/A Computed Radiogr aphy 08/05/2022 6:09 AM CDT Impressions 08/05/2022 6:09 AM CDT A single view of the abdomen is submitted for evaluation. Feeding tube has its tip in the proximal duodenum. ??Cholecystectomy clips and cardiac pacer are noted. ??Visualized bowel gas pattern is within normal. ??There is left basilar atelectasis. Electronically signed by: Reynaldo Qureshi M.D. Narrative 08/05/2022 6:09 AM CDT EXAMINATION: Abdomen, one view. HISTORY: Tube placement COMPARISON: Correlation with CT performed on 08/03/2022 Procedure Note Reynaldo Qureshi MD - 08/05/2022 EXAMINATION: Abdomen, one view. HISTORY: Tube placement COMPARISON: Correlation with CT performed on 08/03/2022 IMPRESSION: A single view of the abdomen is submitted for evaluation. Feeding tube has its tip in the proximal duodenum. Cholecystectomy clips and cardiac pacer are noted. Visualized bowel gas pattern is within normal. There is left basilar atelectasis. Electronically signed by: Reynaldo Qureshi M.D. us Citlaly Freire NP IMG XR PROCEDURES Final Resu lt * CT Head WO Contrast (08/04/2022 4:21 AM CDT) Anatomical Region Laterality Modality Head and Neck N/A Computed Tomogra phy 08/04/2022 6:26 AM CDT Impressions 08/04/2022 7:08 AM CDT Suboptimal due to portable technique. 1. ??No acute intracranial hemorrhage. No large acute territory infarct. 2. ??Previously described focal hyperdensity within the left ICA terminus is better seen on prior study. Dictated by: Watson Colby M.D. The radiology attending physician has personally reviewed this study, and had reviewed and/or edited this written report and agrees with it. Electronically signed by: Bernice Segura M.D. Narrative 08/04/2022 7:08 AM CDT EXAMINATION: Noncontrast head CT, portable HISTORY: Stroke follow-up TECHNIQUE: Noncontrast CT of the brain was performed with images acquired from skull base to vertex. COMPARISON: 08/03/2022 FINDINGS: Portable technique limits evaluation. No acute intracranial hemorrhage. ??No evidence of mass effect or midline shift. ??Doan-white differentiation is normal. Periventricular hypoattenuation is again noted, nonspecific, likely sequela of chronic small vessel ischemic changes. ??The previously described evidence focus in the left ICA terminus is better seen on previous study. ??Visual is portions the orbits are normal. ??Mastoid air cells are normal. ??Left maxillary sinus mucosal thickening is again noted. ??No acute cranial fracture. Procedure Note Bernice Monaco MD - 08/04/2022 EXAMINATION: Noncontrast head CT, portable HISTORY: Stroke follow-up TECHNIQUE: Noncontrast CT of the brain was performed with images acquired from skull base to vertex. COMPARISON: 08/03/2022 FINDINGS: Portable technique limits evaluation. No acute intracranial hemorrhage. No evidence of mass effect or midline shift. Doan-white differentiation is normal. Periventricular hypoattenuation is again noted, nonspecific, likely sequela of chronic small vessel ischemic changes. The previously described evidence focus in the left ICA terminus is better seen on previous study. Visual is portions the orbits are normal. Mastoid air cells are normal. Left maxillary sinus mucosal thickening is again noted. No acute cranial fracture. IMPRESSION: Suboptimal due to portable technique. 1. No acute intracranial hemorrhage. No large acute territory infarct. 2. Previously described focal hyperdensity within the left ICA terminus is better seen on prior study. Dictated by: Watson Colby M.D. The radiology attending physician has personally reviewed this study, and had reviewed and/or edited this written report and agrees with it. Electronically signed by: Bernice Segura M.D. Alice Yoo NP IM CT PROCEDURES Final Result * (ABNORMAL) Troponin I high-sensitivity 6-hour (08/04/2022 4:19 AM CDT) Trop I hs 225(C) <=17 ng/L [facility] Comment: Previous critical value noted within 48 hours ago. Interpretive Data For further hscTnI resources including the diagnostic algorithm and an aid in interpretation, copy and paste this link: https://bjhlab.testcatalog.org/show/[email or web address] Current Interpretive Data last revised 2019. Trop I hs pct delta 31(C) % [facility] Comment:Previous critical va lue noted within 48 hours ago. Trop I hs interp Significa nt(C) [facility] Comment:Previous critical va lue noted within 48 hours ago. Blood 08/04/2022 4:19 AM CDT 08/04/2022 4:43 AM CDT us Alice Yoo [employer]REAR[employer] INSTRUCTOR LAB BLOOD ORDERABLES Final Resul t Performing Organization Address City/[facility] Co de Phone Number [facility] [place] [address] * Critical result callback Cardio chemistry (08/04/2022 2:18 AM CDT) Date Notified [id number] [facility] Time Notified 335 [facility] Test name Trop [facility] Called/Read Back Josue Mccracken [facility] Credentials RN [facility] Called By JLS [facility] Blood 08/04/2022 2:18 AM CDT 08/04/2022 2:34 AM CDT us Alice Yoo FIREARMS INSTRUCTOR LAB BLOOD ORDERABLES Final Resul t Performing Organization Address [facility] Co de Phone Number [facility] [place] [address] * (ABNORMAL) Troponin I high-sensitivity 4-hour (08/04/2022 2:18 AM CDT) Trop I hs 230(C) <=17 ng/L [facility] Comment: Interpretive Data For further hscTnI resources including the diagnostic algorithm and an aid in interpretation, copy and paste this link: https://bjhlab.testcatalog.org/show/[email or web address] Current Interpretive Data last revised 2019. Trop I hs pct delta 34(C) % [facility] Trop I hs interp Significa nt(C) [facility] Blood 08/04/2022 2:18 AM CDT 08/04/2022 2:34 AM CDT us Amaromelodie Yoo FIREARMS INSTRUCTOR LAB BLOOD ORDERABLES Final Resul t Performing Organization Address [facility] Co de Phone Number [facility] [place] [address] * (ABNORMAL) Troponin I high-sensitivity series (baseline, 2hr, 4hr, 6hr) (08/03/2022 10:20 PM CDT) Trop I hs 172(H) <=17 ng/L [facility] Comment: Interpretive Data For further hscTnI resources including the diagnostic algorithm and an aid in interpretation, copy and paste this link: https://bjhlab.testcatalog.org/show/[email or web address] Current Interpretive Data last revised 2019. Blood 08/03/2022 10:2 0 PM CDT 08/03/2022 10:40 PM CDT Alice Yoo FIREARMS INSTRUCTOR LAB BLOOD ORDERABLES Final Resul t Performing Organization Address [facility] Co de Phone Number [facility] [place] [address] * (ABNORMAL) eGFR (08/03/2022 9:00 PM CDT) Pathologist [facility] eGFR 87(L) 90 - 130 mL/min/1. 73 m2 [facility] Comment: Interpretive Data Reference Interval Normal ?>/= [...] data was last reviewed 2021. Blood 08/03/2022 9:00 PM CDT 08/03/2022 8:36 PM CDT us Alice Yoo FIREARMS INSTRUCTOR LAB BLOOD ORDERABLES Final Resul t Performing Organization Address [facility] de Phone Number [facility] [place] [address] * Phosphorus (08/03/2022 9:00 PM CDT) Phosphorus, pl 3.8 2.3 - 4.5 mg/dL [facility] Blood 08/03/2022 9:00 PM CDT 08/03/2022 8:36 PM CDT us Alice Yoo FIREARMS INSTRUCTOR LAB BLOOD ORDERABLES Final Resul t Performing Organization Address [facility] de Phone Number [facility] [place] [address] * Magnesium (08/03/2022 9:00 PM CDT) Magnesium 1.8 1.4 - 2.5 mg/dL [facility] Blood 08/03/2022 9:00 PM CDT 08/03/2022 8:36 PM CDT us Alice Yoo FIREARMS INSTRUCTOR LAB BLOOD ORDERABLES Final Resul t Performing Organization Address [facility] de Phone Number [facility] [place] [address] * (ABNORMAL) Comprehensive metabolic panel (08/03/2022 9:00 PM CDT) Sodium 141 135 - 145 mmol/L [facility] Potassium, pl 4.2 3.3 - 4.9 mmol/L [facility] Chloride 109 97 - 110 mmol/L [facility] Comment:Repeated and Verifie d CO2 23 22 - 32 mmol/L [facility] Anion gap 9 2 - 15 mmol/L [facility] Comment:Repeated and Verifie d BUN 11 8 - 25 mg/dL [facility] Creatinine 0.69 0.60 - 1.10 mg/dL [facility] Glucose 146 70 - 199 mg/dL [facility] Comment: Interpretive Data Fasting glucose >/= 126 [...] interpretive data was last revised 2022. Calcium 7.9(L) 8.5 - 10.3 mg/dL [facility] Comment:Repeated and Verifie d Bilirubin, total 0.5 0.1 - 1.2 mg/dL [facility] Protein, pl 5.7(L) 6.5 - 8.5 g/dL [facility] Albumin 3.4(L) 3.5 - 5.0 g/dL [facility] Alk phos 35(L) 40 - 130 Units/L [facility] ALT 13 7 - 45 Units/L [facility] AST 26 10 - 45 Units/L [facility] Blood 08/03/2022 9:00 PM CDT 08/03/2022 8:36 PM CDT us Alice Yoo NP LAB BLOOD ORDERABLES Final Resul t [facility] [place] [address] * XR Chest 1 View (08/03/2022 8:19 PM CDT) Anatomical Region Laterality Modality Body, Chest N/A Computed Radiogr aphy 08/03/2022 8:34 PM CDT Impressions 08/03/2022 8:34 PM CDT Comparison is made to prior study of [...] unchanged. Electronically signed by: Cy Hawley M.D. Narrative 08/03/2022 8:34 PM CDT EXAMINATION: 1 view chest radiograph Procedure Note Cy Hawley MD - 08/03/2022 EXAMINATION: 1 view chest radiograph IMPRESSION: Comparison is made to prior study of [...] unchanged. Electronically signed by: Cy Hawley M.D. Alice Yoo NP IM XR PROCEDURES Final Result * (ABNORMAL) Urinalysis, microscopic only (08/03/2022 8:03 PM CDT) WBC, ur 0-5 0 - 5 /HPF [facility] RBC, ur 3-5(A) 0 - 2 /HPF [facility] Epithelial cells, squamous, ur 1-5 0 - 5 /HPF [facility] Culture Reflex Comment Reflex conditions for urine culture (WBC >10) not met. [facility] Urine 08/03/2022 8:03 PM CDT 08/03/2022 8:32 PM CDT Alice Yoo NP LAB URINE ORDERABLES Final Resul t Performing Organization Address [facility] de Phone Number [facility] [place] [address] * (ABNORMAL) Urinalysis reflex to microscopic and culture Urine (08/03/2022 8:03 PM CDT) Pathologist [facility] Color, ur Straw Yellow [facility] Clarity, ur Clear Clear [facility] [place]] Specific gravity, ur >1.042(H) 1.003 - 1.030 [facility] pH, urine 6.0 [facility] [place]] Protein, ur ql 1+(A) Negative [facility] [place]] Glucose, ur ql Negative Negative [facility] Ketones, ur 1+(A) Negative [facility] [place]] Bilirubin, ur Negative Negative [facility] [place]] Blood, ur 1+(A) Negative [facility] [place]] Urobilinogen, ur <2.0 <2.0 mg/dL [facility] Nitrite, ur Negative Negative [facility] Leukocyte esterase, ur Negative Negative [facility] [place]] UA reflex comment Reflex to microscopic UA will be performed. [facility] Urine 08/03/2022 8:03 PM CDT 08/03/2022 8:32 PM CDT Alice Yoo NP LAB MICROBIOLOGY - GENERAL ORDER ROSE Final Result Performing Organization Address [facility] Co de Phone Number [facility] [place] [address] * (ABNORMAL) eGFR (08/03/2022 7:57 PM CDT) [facility] eGFR 87(L) 90 - 130 mL/min/1. 73 m2 [facility] Comment: Interpretive Data Reference Interval Normal ?>/= [...] data was last reviewed 2021. Blood 08/03/2022 7:57 PM CDT 08/03/2022 8:36 PM CDT us Alice Yoo NP LAB BLOOD ORDERABLES Final Resul t [facility] [place] [address] * (ABNORMAL) Lipid panel (08/03/2022 7:57 PM CDT) Cholesterol 146 30 - 199 mg/dL [facility] Comment: Interpretive Data Ages < or = 19 years ??Acceptable: ? <170 mg/dL ??Borderline high: ??170-199 mg/dL ??High: ? >or= 200 mg/dL Ages > or = 20 years ??Desirable: ?<200 mg/dL ??Borderline high: ??200-239 mg/dL ??High: ? >or= 240 mg/dL Literature References: 1. Expert Panel on Integrated Guidelines for Cardiovascular Health and Risk Reduction in Children and Adolescents. Pediatrics 2011;128:S213 2. NCEP Expert Panel. Circulation 2004;110:227 Current Interpretive Data was last revised on 2017. Triglycerides 77 <=149 mg/dL [facility] [place] Comment: Interpretive Data Ages < or = 9 years ??Acceptable: ? <75 mg/dL ??Borderline high: ??75-99 mg/dL ??High: ? >or= 100 mg/dL Ages 10 to 20 years ??Acceptable: ? <90 mg/dL ??Borderline high: ??90-129 mg/dL ??High: ? >or= 130 mg/dL Ages > or = 20 years ??Desirable: ?<150 mg/dL ??Borderline high: ??150-199 mg/dL ??High: ? 200-499 mg/dL ?Very high: ?? >or= 499 mg/dL Literature References: 1. Expert Panel on Integrated Guidelines for Cardiovascular Health and Risk Reduction in Children and Adolescents. Pediatrics 2011;128:S213 2. NCEP Expert Panel. Circulation 2004;110:227 Current Interpretive Data was last revised on 2017. HDL 33(L) >=40 mg/dL [facility] Comment: Interpretive Data Ages < or = 19 years ??Acceptable: ? >45 mg/dL ??Borderline low: ?? 40-45 mg/dL ??Low: ? <40 mg/dL Ages > or = 20 years ??Desirable: ?>or= 60 mg/dL ??Low: ? <40 mg/dL Literature References: 1. Expert Panel on Integrated Guidelines for Cardiovascular Health and Risk Reduction in Children and Adolescents. Pediatrics 2011;128:S213 2. NCEP Expert Panel. Circulation 2004;110:227 Current Interpretive Data was last revised on 2017. LDL, calculated 98 <=129 mg/dL [facility] Comment: Interpretive Data Ages < or = 19 years ??Acceptable: ? <110 mg/dL ??Borderline high: ??110-129 mg/dL ??High: ?>or= 130 mg/dL Ages > or = 20 years ??Optimal: ? <100 mg/dL ??Near optimal: ?100-129 mg/dL ??Borderline high: ?? 130-159 mg/dL ??High: ?>160 mg/dL Literature References: 1. Expert Panel on Integrated Guidelines for Cardiovascular Health and Risk Reduction in Children and Adolescents. Pediatrics 2011;128:S213 2. NCEP Expert Panel. Circulation 2004;110:227 Current Interpretive Data was last revised on 2017. Non-HDL Cholesterol 113 mg/dL [facility] Comment: Interpretive Data Ages < or = 19 years ??Acceptable: ?<120 mg/dL ??Borderline high: ??120-144 mg/dL ??High: ?>145 mg/dL Ages > or = 20 years ??When triglycerides are >200 mg/dL, Non-HDL cholesterol is a secondary target of ? therapy with treatment goals that are 30 mg/dL greater than the LDL cholesterol target. ? Literature References: 1. Expert Panel on Integrated Guidelines for Cardiovascular Health and Risk Reduction in Children and Adolescents. Pediatrics 2011;128:S213 2. NCEP Expert Panel. Circulation 2004;110:227 Current Interpretive Data was last revised on 2017. Chol/HDL ratio 4 [facility] Blood 08/03/2022 7:57 PM CDT 08/03/2022 8:36 PM CDT us Alice Yoo NP LAB BLOOD ORDERABLES Final Resul t [facility] Department of Laboratories [place], [place] [id number] * (ABNORMAL) Hemoglobin A1c (08/03/2022 7:57 PM CDT) Pathologist [facility] Hgb A1C 6.0(H) 4.0 - 5.6 % [facility] Estimated Average Glucose 126 mg/dL [facility] Comment: The ADA recommends reporting an estimated Average Glucose (eAG) with all Hemoglobin A1c results using the equation derived from a study of 507 normal and diabetic adults. ??Minority populations were underrepresented and children were not included. ?? (Diabetes Care 2020; 43(S1): S66-S76). ??The eAG is not equivalent to a fasting glucose. Blood 08/03/2022 7:57 PM CDT 08/03/2022 8:37 PM CDT Alice Yoo NP LAB BLOOD ORDERABLES Final Resul t Performing Organization Address [facility] de Phone Number [facility] [place] [address] * (ABNORMAL) Protime-INR (08/03/2022 7:57 PM CDT) [facility] PT 13.7(H) 9.2 - 13.5 sec [facility] INR 1.3(H) 0.9 - 1.2 [facility] Comment: Interpretive data Oral anticoagulant therapeutic ranges: Venous thromboembolism prophylaxis or treatment: 2.0-3.0 CARDIOLOGY Standard range: 2.0-3.0 High-intensity range: 2.5-3.5 Refer to indication-specific guidelines for appropriate target ranges for prosthetic heart valve replacement. Current interpretive data was last revised on 2019. Blood 08/03/2022 7:57 PM CDT 08/03/2022 8:40 PM CDT Alice Yoo NP LAB BLOOD ORDERABLES Final Resul t Performing Organization Address [facility] Phone Number [facility] [place] [employer] [place] [address] * aPTT (08/03/2022 7:57 PM CDT) [facility] aPTT 27 27 - 37 sec [facility] Comment: Interpretive Data Therapeutic heparin range: 60.0 - 94.0 seconds. Based on correlation with therapeutic heparin activity range of 0.3-0.7 Units/mL. Current interpretive data was last revised on 2020. Blood 08/03/2022 7:57 PM CDT 08/03/2022 8:40 PM CDT Alice Yoo NP LAB BLOOD ORDERABLES Final Resul t Performing Organization Address [facility] Co de Phone Number [facility] [place] [employer] [place] [address] * Type and screen (08/03/2022 7:57 PM CDT) [facility] Cuauhtemoc, indirect Negative [facility] ABO Rh A Positive [facility] Blood 08/03/2022 7:57 PM CDT 08/03/2022 8:45 PM CDT Narrative [facility] - 08/03/2022 9:34 PM CDT Has the patient had Daratumumab or Isatuximab in the past 6 months?->Unknown Alice Yoo NP LAB BLOOD BANK TEST ORDERABLES F inal Result Performing Organization Address [facility] de Phone Number [facility] [place] [address] * (ABNORMAL) CBC without differential (08/03/2022 7:57 PM CDT) [facility] WBC 5.9 3.8 - 9.9 K/cumm [facility] Hgb 11.5(L) 11.9 - 15.5 g/dL [facility] Hct 34.8(L) 35.6 - 45.5 % [facility] Plt 170 150 - 400 K/cumm [facility] MPV 10.9 9.1 - 12.3 fL [facility] RBC 3.73(L) 3.90 - 5.20 M/cumm [facility] MCV 93.3 81.3 - 96.4 fL [facility] MCH 30.8 27.1 - 33.3 pg [facility] MCHC 33.0 32.3 - 35.7 g/dL [facility] RDW CV 14.0 11.1 - 14.9 % [facility] RDW SD 47.6 35.7 - 48.1 fL [facility] NRBC abs 0.00 0.00 - 0.01 K/cumm [facility] Blood 08/03/2022 7:57 PM CDT 08/03/2022 8:37 PM CDT us Alice Yoo NP LAB BLOOD ORDERABLES Final Resul t Performing Organization Address [facility] de Phone Number [facility] [place] [address] * (ABNORMAL) Blood gas, arterial (08/03/2022 7:57 PM CDT) pH, Art 7.38 7.35 - 7.45 [facility] PCO2, Arterial 36 35 - 45 mmHg [facility] PO2, Arterial 166(H) 83 - 108 mmHg [facility] HCO3 Art (Calculated) 22 20 - 30 mmol/L [facility] BE, art -3 mmol/L [facility] Comment: Interpretive Data No Reference Range Established Current Interpretive Data was last revised on 2017 O2 Sat Art (Measured) 99(H) 90 - 95 % [facility] Blood 08/03/2022 7:57 PM CDT 08/03/2022 8:32 PM CDT us Alice Yoo NP LAB BLOOD ORDERABLES Final Resul t Performing Organization Address [facility] de Phone Number [facility] [place] [address] * (ABNORMAL) Troponin I high-sensitivity series (baseline, 2hr, 4hr, 6hr) (08/03/2022 7:57 PM CDT) Trop I hs 140(H) <=17 ng/L [facility] Comment: Interpretive Data For further [facility] resources including the diagnostic algorithm and an aid in interpretation, copy and paste this link: [email or web address] Current Interpretive Data last revised 2019. Blood 08/03/2022 7:57 PM CDT 08/03/2022 8:36 PM CDT us Alice Yoo NP LAB BLOOD ORDERABLES Final Resul t [facility] [place] [address] * (ABNORMAL) Comprehensive metabolic panel (08/03/2022 7:57 PM CDT) Pathologist [facility] Sodium 140 135 - 145 mmol/L [facility] Potassium, pl 4.2 3.3 - 4.9 mmol/L [facility] Chloride 109 97 - 110 mmol/L [facility] Comment:Repeated and Verifie d CO2 23 22 - 32 mmol/L [facility] Anion gap 8 2 - 15 mmol/L [facility] BUN 12 8 - 25 mg/dL [facility] Creatinine 0.69 0.60 - 1.10 mg/dL [facility] Glucose 143 70 - 199 mg/dL [facility] Comment: Interpretive Data Fasting glucose >/= 126 [...] interpretive data was last revised 2022. Calcium 8.4(L) 8.5 - 10.3 mg/dL [facility] Comment:Reviewed Bilirubin, total 0.5 0.1 - 1.2 mg/dL [facility] Protein, pl 5.9(L) 6.5 - 8.5 g/dL [facility] Albumin 3.4(L) 3.5 - 5.0 g/dL [facility] Alk phos 34(L) 40 - 130 Units/L [facility] ALT 14 7 - 45 Units/L [facility] AST 25 10 - 45 Units/L [facility] Blood 08/03/2022 7:57 PM CDT 08/03/2022 8:36 PM CDT us Alice Yoo [employer]AR[employer]STRU[employer] LAB BLOOD ORDERABLES Final Resul t Performing Organization Address City/[facility] Co de Phone Number [facility] [place] [address] * Magnesium (08/03/2022 7:57 PM CDT) Magnesium 1.8 1.4 - 2.5 mg/dL [facility] Blood 08/03/2022 7:57 PM CDT 08/03/2022 8:36 PM CDT us Alice Yoo [employer]AR[employer] LAB BLOOD ORDERABLES Final Resul t Performing Organization Address [facility] de Phone Number [facility] [place] [address] * Phosphorus (08/03/2022 7:57 PM CDT) Phosphorus, pl 3.8 2.3 - 4.5 mg/dL [facility] Blood 08/03/2022 7:57 PM CDT 08/03/2022 8:36 PM CDT Result Miguel Yoo [employer]AR[employer]STRU[employer] LAB BLOOD ORDERABLES Final Resul t Performing Organization Address [facility] Co de Phone Number [facility] [place] [address] * ECG 12 lead (08/03/2022 7:35 PM CDT) [facility] Ventricular Rate EKG/Min 69 BPM [facility] Atrial Rate 69 BPM [facility] QRS-Interval (MSEC) 178 ms [facility] QT-Interval (MSEC) 548 ms [facility] QTc 587 ms [facility] R [place] -68 degrees [facility] T [place] 103 degrees [facility] Diagnosis Ventricular-p aced rhythm Abnormal ECG No previous ECGs available Confirmed by IKE LORENZ M.D ([id number]) on 08/05/2022 2:52:10 PM [facility] 08/03/2022 7:35 PM CDT 08/05/2022 2:52 PM CDT us Alice Yoo NP ECG ORDERABLES Final Result Performing Organization Address City/[facility]/ZIP Co de Phone Number [facility] * POCT glucose (08/03/2022 7:15 PM CDT) [facility] Glucose, POC 158 70 - 199 mg/dL [facility] Blood 08/03/2022 7:15 PM CDT 08/03/2022 7:15 PM CDT Citlaly Crump MD LAB POCT ORDERABLES - DEV ICE Final Result Performing Organization Address City/[facility]/ZIP Co de Phone Number [facility] [place] [address] * IR Percutaneous Arterial Thrombectomy, Intracranial (08/03/2022 7:08 PM CDT) Anatomical Region Laterality Modality Head N/A Radio Fluoroscop y 08/05/2022 5:27 PM CDT Impressions 08/05/2022 5:27 PM CDT 1. Left middle cerebral artery occlusion, TICI 0 2. ??Successful mechanical thrombectomy with TICI 2B reperfusion of the left middle cerebral artery Electronically signed by: Kamlesh Steele M.D. Narrative 08/05/2022 5:27 PM CDT CEREBRAL ANGIOGRAM AND MECHANICAL THROMBECTOMY CLINICAL INDICATION: 82-year-old woman with left middle cerebral artery occlusion PROCEDURE: Cerebral angiogram and mechanical thrombectomy DURATION OF PROCEDURE: Approximately 1 hours. OPERATORS: Kamlesh Steele MD, was the attending physician. He performed the entire procedure. // VESSELS ANGIOGRAMED (in sequence): Left common carotid artery Left internal carotid artery Left common femoral artery ANESTHESIA: General. Pre-, intra-, and post-anesthesia monitoring records are available in the chart. MEDICATIONS: None MATERIALS: 0-Micronesian Terumo Graham sheath 0.035 inch Glidewire advantage 125 cm Kelly 2 catheter 8-Micronesian route 92-based camp sheath 6-Micronesian Madhuri plus aspiration catheter/ John 7 catheter TECHNIQUE: Prior to the procedure, the technical aspects of the procedure, as well as potential risks and benefits, were explained to the patient[and medical proxy]. Specifically, the risks of cerebral infarction, hemorrhage, stent thrombosis/re-stenosis, stent migration, blindness, cranial nerve palsy, facial pain, anaphylaxis, renal failure, limb loss, , non-target embolization, groin hematoma, arterial dissection, arterial pseudoaneurysm, and arteriovenous fistula were discussed. After informed written consent was obtained, the patient was brought to the angiography suite, intubated, and prepped and draped in the usual fashion. Access to the vascular system was gained in the usual way by a single-wall puncture of the leftt femoral artery; a 8-Micronesian Terumo Graham sheath was introduced into the right femoral artery. Using fluoroscopic guidance, a coaxial system of the aubrey 92-based camp, and Kelly 2 catheter were used to select the above vessels.. Digital angiograms were performed of these vessels, centered over the head and neck. After the intracranial occlusion was identified, a coaxial system of the Tenzing7 and Madhuri plus catheter were advanced into the internal carotid artery. ??The John was used to interface with the thrombus in the Maritza plus catheter was advanced to the thrombus interface. The Tenzingremoved and the Maritza was connected to an aspiration pump. Aspiration was applied for approximately 2 minutes. ??The Maritza catheter was removed. ??Aspiration was applied to the guide catheter as well. ??The guide catheter was flushed and then angiographic run was performed. This demonstrated a TICI 2B reperfusion of the occluded vessel. After completion of the procedure, an angiographic run of the left common femoral artery was obtained; ??the artery had severa athereosclerosis and was closed with manual pressure COMPARISON: CT angiogram of the head. FINDINGS: LEFT COMMON CAROTID ARTERY, CERVICAL: The bifurcation is smooth, without irregularity, calcification, or stenosis with respect to the distal SKYLAR. There is normal opacification of right ECA branches. RIGHT INTERNAL CAROTID ARTERY, CEREBRAL: There is complete occlusion of the left middle cerebral artery, TICI 0. There is no aneurysm, stenosis, or early draining vein. RIGHT INTERNAL CAROTID ARTERY, CEREBRAL, STATUS POST PASS #1: After a single pass with aspiration, there is recanalization of the left middle cerebral artery with a TICI 2B Reperfusion. 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 Procedure Note Kamlesh Steele MD - 08/05/2022 CEREBRAL ANGIOGRAM AND MECHANICAL THROMBECTOMY CLINICAL INDICATION: 82-year-old woman with left middle cerebral artery occlusion PROCEDURE: Cerebral angiogram and mechanical thrombectomy DURATION OF PROCEDURE: Approximately 1 hours. OPERATORS: Kamlesh Steele MD, was the attending physician. He performed the entire procedure. // VESSELS ANGIOGRAMED (in sequence): Left common carotid artery Left internal carotid artery Left common femoral artery ANESTHESIA: General. Pre-, intra-, and post-anesthesia monitoring records are available in the chart. MEDICATIONS: None MATERIALS: 0-Micronesian Terumo Graham sheath 0.035 inch Glidewire advantage 125 cm Kelly 2 catheter 8-Micronesian route 92-based camp sheath 6-Micronesian Madhuri plus aspiration catheter/ John 7 catheter TECHNIQUE: Prior to the procedure, the technical aspects of the procedure, as well as potential risks and benefits, were explained to the patient[and medical proxy]. Specifically, the risks of cerebral infarction, hemorrhage, stent thrombosis/re-stenosis, stent migration, blindness, cranial nerve palsy, facial pain, anaphylaxis, renal failure, limb loss, , non-target embolization, groin hematoma, arterial dissection, arterial pseudoaneurysm, and arteriovenous fistula were discussed. After informed written consent was obtained, the patient was brought to the angiography suite, intubated, and prepped and draped in the usual fashion. Access to the vascular system was gained in the usual way by a single-wall puncture of the leftt femoral artery; a 8-Micronesian Terumo Graham sheath was introduced into the right femoral artery. Using fluoroscopic guidance, a coaxial system of the aubrey 92-based camp, and Kelly 2 catheter were used to select the above vessels.. Digital angiograms were performed of these vessels, centered over the head and neck. After the intracranial occlusion was identified, a coaxial system of the Tenzing7 and Madhuri plus catheter were advanced into the internal carotid artery. The John was used to interface with the thrombus in the Maritza plus catheter was advanced to the thrombus interface. The Tenzingremoved and the Maritza was connected to an aspiration pump. Aspiration was applied for approximately 2 minutes. The Maritza catheter was removed. Aspiration was applied to the guide catheter as well. The guide catheter was flushed and then angiographic run was performed. This demonstrated a TICI 2B reperfusion of the occluded vessel. After completion of the procedure, an angiographic run of the left common femoral artery was obtained; the artery had severa athereosclerosis and was closed with manual pressure COMPARISON: CT angiogram of the head. FINDINGS: LEFT COMMON CAROTID ARTERY, CERVICAL: The bifurcation is smooth, without irregularity, calcification, or stenosis with respect to the distal SKYLAR. There is normal opacification of right ECA branches. RIGHT INTERNAL CAROTID ARTERY, CEREBRAL: There is complete occlusion of the left middle cerebral artery, TICI 0. There is no aneurysm, stenosis, or early draining vein. RIGHT INTERNAL CAROTID ARTERY, CEREBRAL, STATUS POST PASS #1: After a single pass with aspiration, there is recanalization of the left middle cerebral artery with a TICI 2B Reperfusion. 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 IMPRESSION: 1. Left middle cerebral artery occlusion, TICI 0 2. Successful mechanical thrombectomy with TICI 2B reperfusion of the left middle cerebral artery Electronically signed by: Kamlesh Steele M.D. Sachi Jackson MD IMG IR PROCEDURES Final Result * (ABNORMAL) POC Blood Gas and Chemistries, Arterial - (08/03/2022 5:26 PM CDT) pH, Art POC 7.31(L) 7.35 - 7.45 [facility] pCO2, Art POC 42 35 - 45 mmHg [facility] pO2, Art POC 147(H) 83 - 108 mmHg [facility] Na, POC 138 135 - 145 mmol/L [facility] K POC 4.8 3.3 - 4.9 mmol/L [facility] Comment: Interpretive Data This method is not able to assess for hemolysis, which may falsely increase potassium concentrations. If further testing is needed to evaluate this result, consider in-laboratory plasma potassium. Current Interpretive Data was last revised on 2021. Cl, POC 108 97 - 110 mmol/L [facility] Ionized Ca, POC 4.60 4.50 - 5.10 mg/dL [facility] Glucose, POC 160 70 - 199 mg/dL [facility] Lactate, POC 1.1 0.7 - 2.2 mmol/L [facility] SO2 (kan) arterial 99(H) 90 - 95 % [facility] Base excess, POC -5.0 mmol/L [facility] HCO3, Art POC 21 20 - 30 mmol/L [facility] Hct, POC 43.0 36.3 - 45.3 % [facility] O2 Sat, Art POC (Calc) 99 % [facility] Total Hb, POC 14.2 11.9 - 15.5 g/dL [facility] Blood 08/03/2022 5:26 PM CDT 08/03/2022 5:26 PM CDT us Jay Coleman MD LAB POCT ORDERABLES - DEVICE Final Result [facility] Department of Laboratories [place], [place] [id number] * CT Stroke Head WO Contrast (08/03/2022 4:46 PM CDT) Anatomical Region Laterality Modality Head N/A Computed Tomogra phy 08/03/2022 5:24 PM CDT Impressions 08/03/2022 5:35 PM CDT 1. Focal hyperdensity within the left ICA terminus, possibly ict sales representative of persistent occlusion as seen on the recent CTA, though there is some degree of retained vascular contrast. ?? 2. No evidence of acute intracranial hemorrhage after thrombolytic administration. The non-time sensitive CT HEAD W/O was communicated by Dr. Gunter to Dr. Donahue at 5:23 PM. ??Patient was already in neurointerventional suite at the time of the call. ??This CT was not performed as a code stroke due to known occlusion at the outside hospital. Dictated by: Mike Donahue MD The radiology attending physician has personally reviewed this study, and had reviewed and/or edited this written report and agrees with it. Electronically signed by: Rivas Lee M.D. Narrative 08/03/2022 5:35 PM CDT EXAMINATION: CT stroke head without contrast HISTORY: Left MCA stroke status post thrombolytics transferred here for thrombectomy. TECHNIQUE: Noncontrast CT of the brain was performed with images acquired from skull base to vertex. ??Images were sent for hemorrhage detection to the RAPID software. COMPARISON: Outside CT from 08/03/2022. FINDINGS: There is hyperdensity within the left ICA terminus at series 2 image 17. There is a retained vascular contrast from recent CTA. Periventricular and subcortical white matter hyperintensities from chronic microvascular ischemic disease. ??There is no acute hemorrhage after thrombolytic administration. There is no definite large area of cytotoxic edema. Ventricles are of proportionate in size to brain volume. No mass effect or midline shift is present. The visualized portions of the orbits are normal. The visualized portions of the mastoids are normal. The visualized portions of the paranasal sinuses are normal. No fractures are identified. ??There is gas throughout the veins of the innovation analyst spaces and in the face and in the temporal scalp. ?? Procedure Note Rivas Lee MD - 08/03/2022 EXAMINATION: CT stroke head without contrast HISTORY: Left MCA stroke status post thrombolytics transferred here for thrombectomy. TECHNIQUE: Noncontrast CT of the brain was performed with images acquired from skull base to vertex. Images were sent for hemorrhage detection to the RAPID software. COMPARISON: Outside CT from 08/03/2022. FINDINGS: There is hyperdensity within the left ICA terminus at series 2 image 17. There is a retained vascular contrast from recent CTA. Periventricular and subcortical white matter hyperintensities from chronic microvascular ischemic disease. There is no acute hemorrhage after thrombolytic administration. There is no definite large area of cytotoxic edema. Ventricles are of proportionate in size to brain volume. No mass effect or midline shift is present. The visualized portions of the orbits are normal. The visualized portions of the mastoids are normal. The visualized portions of the paranasal sinuses are normal. No fractures are identified. There is gas throughout the veins of the innovation analyst spaces and in the face and in the temporal scalp. IMPRESSION: 1. Focal hyperdensity within the left ICA terminus, possibly ict sales representative of persistent occlusion as seen on the recent CTA, though there is some degree of retained vascular contrast. 2. No evidence of acute intracranial hemorrhage after thrombolytic administration. The non-time sensitive CT HEAD W/O was communicated by Dr. Gunter to Dr. [...] it. Electronically signed by: Rivas Lee M.D. Sachi Jackson MD IMG CT PROCEDURES Final Result * CT Chest Abdomen Pelvis W Contrast (08/03/2022 4:46 PM CDT) Anatomical Region Laterality Modality Body N/A Computed Tomogra phy 08/03/2022 5:33 PM CDT Impressions 08/03/2022 6:00 PM CDT 1. ??No evidence of acute bleeding within the chest, abdomen, or pelvis. 2. ?? Moderate cardiomegaly and mild pulmonary edema with small bilateral pleural effusions. 3. ??Hypoattenuation in the left atrial appendage which could [...] it. Electronically signed by: Estella Boyd M.D. Narrative 08/03/2022 6:00 PM CDT EXAMINATION: ??Computed tomography of the chest, abdomen and pelvis with intravenous contrast HISTORY: 82-year-old with known left acute left-sided ICA terminus stroke status post thrombolytic administration, acute hemoglobin drop TECHNIQUE: ??Transaxial computed tomographic images of the chest, abdomen and pelvis were obtained with intravenous contrast according to the standard protocol after the uneventful administration of 100 mL Opti-Ray 350 intravenous contrast. COMPARISON: 03/14/2019 CT FINDINGS: ?? Chest: Mild pulmonary edema. ??Enlargement of the left ventricle and both atria. ??Left-sided pacemaker defibrillator terminates in the right atrium and right ventricle. ??Small right pleural effusion. ??No suspicious pulmonary nodule. ??Bronchial wall thickening of the right lower lobe. ??Fluid within the pericardial recess. ??No thoracic adenopathy. ??Imaged thyroid is normal. ??Nondistended esophagus. ??Gas within the right atrium likely from intravenous injection. ??Normal Caliber aorta and main pulmonary artery. Abdomen/Pelvis: No focal hepatic lesion. ??Gallbladder is surgically absent. ??Spleen is normal. ??Pancreas is normal. ??Adrenals are normal. ??Both kidneys are normal. ??Urinary bladder is decompressed with a Francois catheter. Uterus and adnexa are normal for age. ??Colonic diverticulosis. ??No diverticulitis. ??Appendix is normal. ??Stomach and small bowel are normal in wall thickness and caliber. There is hazy mesenteric edema along the central mesentery at series 2 image 213. Normal caliber abdominal aorta with moderate to severe atherosclerotic disease. ??No retroperitoneal hematoma or enlarging bleed. No abdominal or pelvic lymphadenopathy. ??No free fluid or pneumoperitoneum. No suspicious osseous lesion or fracture. ??Diffuse idiopathic skeletal hyperostosis. Procedure Note Estella Boyd MD - 08/03/2022 EXAMINATION: Computed tomography of the chest, abdomen and pelvis with intravenous contrast HISTORY: 82-year-old with known left acute left-sided ICA terminus stroke status post thrombolytic administration, acute hemoglobin drop TECHNIQUE: Transaxial computed tomographic images of the chest, abdomen and pelvis were obtained with intravenous contrast according to the standard protocol after the uneventful administration of 100 mL Opti-Ray 350 intravenous contrast. COMPARISON: 03/14/2019 CT FINDINGS: Chest: Mild pulmonary edema. Enlargement of the left ventricle and both atria. Left-sided pacemaker defibrillator terminates in the right atrium and right ventricle. Small right pleural effusion. No suspicious pulmonary nodule. Bronchial wall thickening of the right lower lobe. Fluid within the pericardial recess. No thoracic adenopathy. Imaged thyroid is normal. Nondistended esophagus. Gas within the right atrium likely from intravenous injection. Normal Caliber aorta and main pulmonary artery. Abdomen/Pelvis: No focal hepatic lesion. Gallbladder is surgically absent. Spleen is normal. Pancreas is normal. Adrenals are normal. Both kidneys are normal. Urinary bladder is decompressed with a Francois catheter. Uterus and adnexa are normal for age. Colonic diverticulosis. No diverticulitis. Appendix is normal. Stomach and small bowel are normal in wall thickness and caliber. There is hazy mesenteric edema along the central mesentery at series 2 image 213. Normal caliber abdominal aorta with moderate to severe atherosclerotic disease. No retroperitoneal hematoma or enlarging bleed. No abdominal or pelvic lymphadenopathy. No free fluid or pneumoperitoneum. No suspicious osseous lesion or fracture. Diffuse idiopathic skeletal hyperostosis. IMPRESSION: 1. No evidence of acute bleeding within the chest, abdomen, or pelvis. 2. Moderate cardiomegaly and mild pulmonary edema with small bilateral pleural effusions. [...] it. Electronically signed by: Estella Boyd M.D. Sachi Jackson MD IMG CT PROCEDURES Final Result * ECG 12-LEAD (08/03/2022 4:36 PM CDT) Narrative [facility] [place] - 08/03/2022 4:36 PM CDT Jay Coleman MD ? 08/03/2022 ??4:37 PM ECG 12 lead Date/Time: 08/03/2022 4:36 PM Performed by: Jay Coleman MD Authorized by: Jay Coleman MD ?? Rate: ??ECG rate: ??73 ??ECG rate assessment: normal ?? Rhythm: ??Rhythm: paced ?? Pacing: ??Capture: ??Complete ??Type of pacing: ??Ventricular Ectopy: ??Ectopy: PVCs ?? QRS: ??QRS axis: ??Left ??QRS intervals: ??Wide Interpretation: ??Interpretation: No acute injury pattern ?? Comments: ?? Does not meet modified Sgarbossi criteria us Jay Coleman MD ECG ORDERABLES Final Result [facility] * (ABNORMAL) Urinalysis, microscopic only (08/03/2022 4:24 PM CDT) WBC, ur 0-5 0 - 5 /HPF [facility] RBC, ur 0-2 0 - 2 /HPF [facility] Epithelial cells, squamous, ur 1-5 0 - 5 /HPF [facility] Mucous, ur Present(A) [facility] Hyaline casts, ur 1-5 0 - 10 /LPF [facility] Urine 08/03/2022 4:24 PM CDT 08/03/2022 4:29 PM CDT us Jay Coleman MD LAB URINE ORDERABLES F inal Result [facility] [place] [address] * (ABNORMAL) Urinalysis reflex to microscopic (08/03/2022 4:24 PM CDT) Color, ur Straw Yellow [facility] Clarity, ur Clear Clear [facility] Specific gravity, ur >1.042(H) 1.003 - 1.030 [facility] pH, urine 5.5 [facility] Protein, ur ql Trace Negative [facility] Glucose, ur ql Negative Negative [facility] Ketones, ur Negative Negative [facility] Bilirubin, ur Negative Negative [facility] Blood, ur Trace(A) Negative [facility] Urobilinogen, ur <2.0 <2.0 mg/dL [facility] Nitrite, ur Negative Negative [facility] Leukocyte esterase, ur Negative Negative [facility] UA reflex comment Reflex to microscopic UA will be performed. [facility] Urine 08/03/2022 4:24 PM CDT 08/03/2022 4:29 PM CDT Narrative [facility] - 08/03/2022 4:40 PM CDT ?? Urine pH is affected by diet, medications, systemic acid-base disturbances, and renal tubular function. ??pH may affect urinary stone formation. ??For example, urine pH below 6.0 may help reduce the tendency for calcium phosphate stones and pH greater than 6.0 may reduce the tendency for uric acid stone formation. Source: [facility] [employer]. Last revised 04-03-2017 Jay Coleman MD LAB URINE ORDERABLES F inal Result [facility] [place] [address] * Check Sample (08/03/2022 4:09 PM CDT) ABO Rh A Positive [facility] OTHER 08/03/2022 4:09 PM CDT 08/03/2022 4:20 PM CDT Jay Coleman MD LAB BLOOD ORDERABLES F inal Result Performing Organization Address [facility] Co de Phone Number [facility] [place] [address] * Critical Result Callback Chemistry (08/03/2022 3:51 PM CDT) Date Notified [id number] [facility] Time Notified 1624 [facility] TestName calcium [facility] Called/Read Back Sachi [facility] Credentials MD [facility] Called By melani [facility] Blood 08/03/2022 3:51 PM CDT 08/03/2022 3:57 PM CDT Jay Coleman MD LAB BLOOD ORDERABLES F inal Result Performing Organization Address City/[facility]/[place] [address] * eGFR (08/03/2022 3:51 PM CDT) eGFR >90 90 - 130 mL/min/1. 73 m2 [facility] Comment: Interpretive Data Reference Interval Normal ?>/= [...] data was last reviewed 2021. Blood 08/03/2022 3:51 PM CDT 08/03/2022 3:57 PM CDT us Jay Coleman MD LAB BLOOD ORDERABLES F inal Result [facility] [place] [address] * Differential, auto (08/03/2022 3:51 PM CDT) Neutrophil abs 5.8 1.7 - 6.5 K/cumm [facility] Imm gran abs 0.0 0.0 - 0.1 K/cumm [facility] Lymphocyte abs 1.4 0.8 - 3.3 K/cumm [facility] Monocyte abs 0.5 0.2 - 0.8 K/cumm [facility] Eosinophil abs 0.1 0.0 - 0.5 K/cumm [facility] Basophil abs 0.0 0.0 - 0.1 K/cumm [facility] Neutrophil pct 73.6 % [facility] [place] Comment: Interpretive Data Percent cell count reference ranges are not reported, since discordance with absolute values may lead to misinterpretation of CBC data. Current Interpretive Data was last revised on 2017. Imm gran pct 0.5 % [facility] Comment: Interpretive Data Percent cell count reference ranges are not reported, since discordance with absolute values may lead to misinterpretation of CBC data. Current Interpretive Data was last revised on 2017. Lymphocyte pct 17.8 % [facility] Comment: Interpretive Data Percent cell count reference ranges are not reported, since discordance with absolute values may lead to misinterpretation of CBC data. Current Interpretive Data was last revised on 2017. Monocyte pct 6.6 % [facility] Comment: Interpretive Data Percent cell count reference ranges are not reported, since discordance with absolute values may lead to misinterpretation of CBC data. Current Interpretive Data was last revised on 2017. Eosinophil pct 1.1 % [facility] Comment: Interpretive Data Percent cell count reference ranges are not reported, since discordance with absolute values may lead to misinterpretation of CBC data. Current Interpretive Data was last revised on 2017. Basophil pct 0.4 % [facility] Comment: Interpretive Data Percent cell count reference ranges are not reported, since discordance with absolute values may lead to misinterpretation of CBC data. Current Interpretive Data was last revised on 2017. Blood 08/03/2022 3:51 PM CDT 08/03/2022 3:57 PM CDT us Jay Coleman MD LAB BLOOD ORDERABLES F inal Result [facility] Department [place] [address] * Type and screen (08/03/2022 3:51 PM CDT) ABO Rh A Positive [facility] Cuauhtemoc, indirect Negative [facility] Blood 08/03/2022 3:51 PM CDT 08/03/2022 3:57 PM CDT Narrative [facility] - 08/03/2022 4:43 PM CDT Has the patient had Daratumumab or Isatuximab in the past 6 months?->Unknown Jay Coleman MD LAB BLOOD BANK TEST OR DERABLES Final Result Performing Organization Address [facility] de Phone Number [facility] [place] [address] * (ABNORMAL) Troponin I high-sensitivity series (baseline, 2hr, 4hr, 6hr) (08/03/2022 3:51 PM CDT) Trop I hs 105(H) <=17 ng/L [facility] Comment: Interpretive Data For further hscTnI resources including the diagnostic algorithm and an aid in interpretation, copy and paste this link: [email or web address] Current Interpretive Data last revised 2019. Code Blue Specimen Blood 08/03/2022 3:51 PM CDT 08/03/2022 3:57 PM CDT Jay Coleman MD LAB BLOOD ORDERABLES E dited Result - Final Performing Organization Address [facility] de Phone Number [facility] [place] [address] * (ABNORMAL) Comprehensive metabolic panel (08/03/2022 3:51 PM CDT) Sodium 148(H) 135 - 145 mmol/L [facility] Comment:Code Blue Specimen Potassium, pl 2.9(L) 3.3 - 4.9 mmol/L [facility] Comment:Code Blue Specimen Chloride 124(H) 97 - 110 mmol/L [facility] Comment:Code Blue Specimen CO2 18(L) 22 - 32 mmol/L [facility] Comment:Code Blue Specimen Anion gap 6 2 - 15 mmol/L [facility] Comment:Code Blue Specimen BUN 8 8 - 25 mg/dL [facility] Comment:Code Blue Specimen Creatinine 0.50(L) 0.60 - 1.10 mg/dL [facility] Comment:Code Blue Specimen Glucose 82 70 - 199 mg/dL [facility] Comment: Code Blue Specimen Interpretive Data Fasting glucose >/= 126 mg/dl [...] interpretive data was last revised 2022. Calcium 5.2(C) 8.5 - 10.3 mg/dL [facility] Comment:Code Blue specimen - critical results, called to Nia STOVALL) on 08/03/2022 16:24:57 CDT by drrp. Bilirubin, total 0.4 0.1 - 1.2 mg/dL [facility] Comment:Code Blue Specimen Protein, pl 4.2(L) 6.5 - 8.5 g/dL [facility] Comment:Code Blue Specimen Albumin 2.5(L) 3.5 - 5.0 g/dL [facility] Comment:Code Blue Specimen Alk phos 24(L) 40 - 130 Units/L [facility] Comment:Code Blue Specimen ALT 10 7 - 45 Units/L [facility] Comment:Code Blue Specimen AST 20 10 - 45 Units/L [facility] Comment:Code Blue Specimen Blood (Blood, Venous) 08/03/2022 3:51 PM CDT 08/03/2022 3:57 PM CDT Narrative [facility] - 08/03/2022 4:25 PM CDT Potential Stroke Patient Jay Coleman MD LAB BLOOD ORDERABLES F inal Result [facility] [place] [address] * (ABNORMAL) CBC with auto differential (08/03/2022 3:51 PM CDT) WBC 7.9 3.8 - 9.9 K/cumm [facility] Comment:Code Blue Specimen Hgb 9.6(L) 11.9 - 15.5 g/dL [facility] Comment: No apparent cause for delta. Telephone report made to: Sachi STOVALL) on 08/03/2022 16:12:13 CDT by SIVA . Hct 29.9(L) 35.6 - 45.5 % [facility] Plt 116(L) 150 - 400 K/cumm [facility] MPV 10.4 9.1 - 12.3 fL [facility] RBC 3.06(L) 3.90 - 5.20 M/cumm [facility] MCV 97.7(H) 81.3 - 96.4 fL [facility] MCH 31.4 27.1 - 33.3 pg [facility] MCHC 32.1(L) 32.3 - 35.7 g/dL [facility] RDW CV 14.0 11.1 - 14.9 % [facility] RDW SD 49.4(H) 35.7 - 48.1 fL [facility] NRBC abs 0.00 0.00 - 0.01 K/cumm [facility] Blood (Blood, Venous) 08/03/2022 3:51 PM CDT 08/03/2022 3:57 PM CDT Narrative [facility] - 08/03/2022 4:29 PM CDT Potential Stroke Patient Jay Coleman MD LAB BLOOD ORDERABLES E dited Result - Final [facility] [place] [address] * POCT glucose (08/03/2022 3:49 PM CDT) Glucose, POC 82 70 - 199 mg/dL [facility] Blood 08/03/2022 3:49 PM CDT 08/03/2022 3:49 PM CDT Citlaly Crump MD LAB POCT ORDERABLES - DEV ICE Final Result Performing Organization Address [facility] de Phone Number [facility] [place] [address] * (ABNORMAL) POCT prothrombin time, whole blood (08/03/2022 3:48 PM CDT) [facility] PT, POC 17.1(H) 10.6 - 13.5 sec [facility] INR, bld, POC 1.4(H) 0.8 - 1.2 [facility] Blood 08/03/2022 3:48 PM CDT 08/03/2022 3:48 PM CDT Result [facility] Citlaly Crump MD LAB POCT ORDERABLES - DEV ICE Final Result Performing Organization Address [facility] [place] [address] * IN CRITICAL CARE ILL/INJURED PATIENT INIT 30-74 MIN (08/03/2022 11:21 AM CDT) Narrative Citlaly Crump MD - 08/03/2022 11:21 AM CDT Citlaly Crump MD ? 08/15/2022 ??2:46 AM Critical Care Performed by: Citlaly Crump MD Authorized by: Jay Coleman MD ?? Critical care provider statement: As reflected in the history, physical exam, orders, notes, and/or MDM, I was personally present while the patient was critically ill and provided critical care services for 30 minutes, excluding time involved in separately billable procedures. ??Critical care was necessary to treat or prevent imminent or life-threatening deterioration of the following condition(s): ?? acute cerebrovascular accident (CVA) ?? acute electrolyte derangement ??Critical care was time spent by me providing the following: ? continuous telemetry, continuous pulse oximetry and serial bedside patient exams ?? frequent neurologic exams, decision regarding acute lytic therapy and initiation of stroke management ?? decision regarding NPO status ?? active repletion of electrolytes ?? I provided emergent necessary critical care medicine services to this patient. I ordered and reviewed test results and/or imaging studies. I spent time discussing the management of this critically ill patient with consultants and the medical staff. I spent time discussing the management and therapeutic options for this critically ill patient with the patient themselves or with the appropriate designated surrogate decision-maker. I spent time documenting in the medical record. us Jay Coleman MD IN CLINIC/BEDSIDE MADELYN BAHENA Edited Result - Final documented in this encounter Visit Diagnoses Diagnosis 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)- Primary Ischemic stroke (HCC) 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) Ischemic stroke (HCC) documented in this encounter Admitting Diagnoses Diagnosis 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) Ischemic stroke (HCC) documented in this encounter Administered Medications Inactive Administered Medications - up to 3 most recent administrations Medication Order MAR Action Action Date Dose Rate Site acetaminophen (TYLENOL) 32 mg/mL oral liquid 650 mg 650 mg, feeding tube, Every 4 hours PRN, 1st line for pain, fever, Starting on 08/03/22 at 2134 Given 08/07/2022 6:28 AM CDT 650 mg Given 08/06/2022 10:29 AM CDT 650 mg Given 08/05/2022 1:44 PM CDT 650 mg apixaban (ELIQUIS) tablet 5 mg 5 mg, oral, Every 12 hours scheduled, First dose on 08/10/22 at 0900, Nurse to discontinue heparin infusion order and associated bolus at first administration of apixaban using 'order condition met' order source, Indications: atrial fibrillationIndications:atrial fibrillation Given 08/12/2022 8:51 AM CDT 5 mg Given 08/11/2022 8:51 PM CDT 5 mg Given 08/11/2022 8:41 AM CDT 5 mg aspirin chewable tablet 81 mg 81 mg, oral, Daily, First dose (after last modification) on 08/10/22 at 0900 Given 08/12/2022 8:51 AM CDT 81 mg Given 08/11/2022 8:39 AM CDT 81 mg Given 08/10/2022 8:38 AM CDT 81 mg aspirin tablet 325 mg 325 mg, feeding tube, Daily, First dose on 08/04/22 at 1500 Given 08/09/2022 8:50 AM CDT 325 mg Given 08/08/2022 8:52 AM CDT 325 mg Given 08/07/2022 9:08 AM CDT 325 mg atorvastatin (LIPITOR) tablet 40 mg 40 mg, feeding tube, Daily, First dose (after last modification) on 08/05/22 at 0900 Given 08/06/2022 8:44 AM CDT 40 mg Given 08/05/2022 9:23 AM CDT 40 mg Carrier Fluids for Secondary Infusion - 0.9% Sodium Chloride 30 mL, intravenous, As needed, For priming tubing and/or flushing, Starting on 08/03/22 at 2342, 0-250ml/hr to flush line after IV infusions when no maintenance IV ordered. Infuse 30mL at the same rate as the secondary infusion. Run as primary IV, not intended for KVO Given 08/03/2022 11:51 PM CDT 30 mL chlorhexidine (PERIDEX) 0.12 % solution 15 mL 15 mL, mouth/throat, 2 times daily, First dose on 08/03/22 at 2100, Swab all oral surfaces and suction excess. Discontinue Chlorhexidine Gluconate after patient liberated from mechanical ventilation., Indications: Prevention of Ventilator-Associated PneumoniaIndications:Preve ntion of Ventilator-Associated Pneumonia Given 08/03/2022 10:23 PM CDT 15 mL dexmedeTOMIDine in 0.9% sodium chloride (PRECEDEX) 400 mcg/100 mL (4 mcg/mL) infusion (premix) 0-1.5 mcg/kg/hr ? 69.4 kg (0-26.025 mL/hr, rounded to 0-26.03 mL/hr), 4 mcg/mL, intravenous, Titrated, Starting on 08/03/22 at 2000, Until 08/04/22 at 1035, Titration instructions: Titrate, Initial dose: 0.2 mcg/kg/hr, Titrate: Up/Down, Titrate by: 0.1 mcg/kg/hr, Every: 30 minutes, Goal: RASS, RASS Goal: 0, -1, -2, Routine Rate/Dose Change 08/04/2022 7:05 AM CDT 0.3 mcg/kg/hr 5.21 mL/hr New Bag 08/04/2022 5:44 AM CDT 0.4 mcg/kg/hr 6.94 mL/hr Rate/Dose Change 08/03/2022 9:35 PM CDT 0.5 mcg/kg/hr 8.68 mL/hr docusate (COLACE) 10 mg/mL oral liquid 100 mg 100 mg, feeding tube, 2 times daily, First dose on 08/03/22 at 2100, If able to receive medications per tube. Hold for diarrhea., Indications: constipation, Stool Softener, On hold since 08/05/2022 at 1014 until manually unheldIndications:constipation,Stool Softener Given 08/05/2022 9:2 3 AM CDT 100 mg Given 08/04/2022 8:59 PM CDT 100 mg Given 08/04/2022 10:00 AM CDT 100 mg enoxaparin (LOVENOX) syringe 40 mg 40 mg, subcutaneous, Daily (for enoxaparin), First dose on Fri08/04/22 at 1500, For 7 doses, Indications: Deep Vein Thrombosis PreventionIndications:Deep Vein Thrombosis Prevention Given 08/09/2022 9:01 PM CDT 40 mg Left Lower Abdomen Given 08/08/2022 8:59 PM CDT 40 mg Ri ght Lower Abdomen Given 08/07/2022 8:25 PM CDT 40 mg Le ft Lower Abdomen famotidine (PEPCID) 20 mg/50 mL in sodium chloride 0.9% (premix) 20 mg 20 mg, intravenous, at 150 mL/hr, Administer over 20 Minutes, Every 24 hours, First dose on 08/03/22 at 2215 New Bag 08/03/2022 11:52 PM CDT 20 mg 150 mL/hr furosemide (LASIX) 10 mg/mL injection 20 mg 20 mg, intravenous, Once, On 08/06/22 at 1000, For 1 dose, For IV push: administer doses < 160 mg at a rate of 20 -40 mg/min. Doses >/= 160 mg should be administered no faster than 4 mg/min. Room temperature only Given 08/06/2022 10:32 AM CDT 20 mg furosemide (LASIX) tablet 40 mg 40 mg, feeding tube, 2 times daily (for diuretics), First dose on Fri08/06/22 at 1730 Given 08/08/2022 8:53 AM CDT 40 mg Given 08/07/2022 5:14 PM CDT 40 mg Given 08/07/2022 9:10 AM CDT 40 mg furosemide (LASIX) tablet 40 mg 40 mg, feeding tube, Daily, First dose (after last modification) on Fri08/09/22 at 0900 Given 08/11/2022 8:41 AM CDT 40 mg Given 08/10/2022 8:40 AM CDT 40 mg Given 08/09/2022 8:51 AM CDT 40 mg furosemide (LASIX) tablet 40 mg 40 mg, feeding tube, Daily, First dose (after last modification) on Fri08/13/22 at 0900 heparin in 0.9% sodium chloride 1,000 units/500 mL (2 unit/mL) infusion (premix) Continuous PRN, Starting on Fri08/03/22 at 1752, Intra-Op New Bag 08/03/2022 5:52 PM CDT 50 mL/hr 50 mL/hr iodixanoL (VISIPAQUE) 320 mg iodine/mL injection As needed, Starting on Fri08/03/22 at 1854, Intra-Op Given 08/03/2022 6:54 PM CDT 40 mL Other (Comment) ioversoL (OPTIRAY 350) syringe 100 mL 100 mL, intravenous, Once in imaging, contrast, Starting on Fri08/03/22 at 1646, For 1 dose Contrast Given 08/03/2022 4:46 PM CDT 100 mL losartan (COZAAR) tablet 12.5 mg 12.5 mg, oral, Daily, First dose on Fri08/06/22 at 1430 Given 08/08/2022 8:52 AM CDT 12.5 mg Given 08/07/2022 9:09 AM CDT 12.5 mg Given 08/06/2022 3:30 PM CDT 12.5 mg losartan (COZAAR) tablet 12.5 mg 12.5 mg, feeding tube, Daily, First dose (after last modification) on Fri08/09/22 at 0900 Given 08/11/2022 8:40 AM CDT 12.5 mg Given 08/10/2022 8:38 AM CDT 12.5 mg Given 08/09/2022 8:50 AM CDT 12.5 mg magnesium sulfate 2 g/50 mL in water (premix) 2 g 2 g, intravenous, Administer over 60 Minutes, Once, On 08/03/22 at 2230, For 1 dose New Bag 08/03/2022 11:52 PM CDT 2 g metoprolol tartrate immediate release capsule 6.25 mg 6.25 mg, feeding tube, 2 times daily, First dose on Fri08/06/22 at 1000, For 8 doses, Hold for HR < 60, SBP < 100 Given 08/09/2022 9:01 PM CDT 6.25 mg Given 08/09/2022 8:49 AM CDT 6.25 mg Given 08/08/2022 8:56 PM CDT 6.25 mg metoprolol XL (TOPROL-XL) extended release tablet 12.5 mg 12.5 mg, oral, Daily, First dose on Fri08/10/22 at 0900, Hold for HR < 60, SBP < 100 Tablets that are scored may be split, but do not crush, chew, dissolve, open or otherwise manipulate tablet/capsule. Given 08/11/2022 8:40 AM CDT 12.5 mg Given 08/10/2022 8:38 AM CDT 12.5 mg ondansetron (ZOFRAN) injection 4 mg 4 mg, intravenous, Administer over 2 Minutes, Every 6 hours PRN, nausea, vomiting, Starting on 08/03/22 at 1935, Proceed to trimethobenzamide if no relief within 30 minutes. , Indications: Nausea and VomitingIndications:Nausea and Vomiting Given 08/11/2022 10:50 AM CDT 4 m g Given 08/10/2022 7:01 PM CDT 4 mg Given 08/10/2022 8:36 AM CDT 4 mg perflutren protein-a (OPTISON) 0.22 mg/mL injection - ADS Override Pull Starting on Fri08/05/22 at 1028, For 1 dose, Created by cabinet override Contrast Given 08/05/2022 10:40 AM CDT perflutren protein-a (OPTISON) 3 mL in sodium chloride 0.9% 8 mL syringe 1-8 mL, intravenous, Once in imaging, contrast, Starting on Fri08/05/22 at 0930, For 1 dose, Intra-Procedure (CV) Contrast Given 08/05/2022 10:40 AM CDT 2 mL prochlorperazine (COMPAZINE) tablet 5 mg 5 mg, oral, 3 times daily PRN, nausea, vomiting, Starting on Fri08/11/22 at 1341 ramelteon (ROZEREM) tablet 8 mg 8 mg, oral, Nightly, First dose (after last modification) on Fri08/07/22 at 1915, Indications: Sleep-Onset InsomniaIndications:Sleep-Onset Insomnia Given 08/07/2022 8:25 PM CDT 8 mg ramelteon (ROZEREM) tablet 8 mg 8 mg, feeding tube, Nightly, First dose (after last modification) on Fri08/08/22 at 1900, Indications: Sleep-Onset InsomniaIndications:Sleep-Onset Insomnia Given 08/11/2022 8:51 PM CDT 8 mg Given 08/10/2022 8:52 PM CDT 8 mg Given 08/09/2022 9:01 PM CDT 8 mg rosuvastatin (CRESTOR) tablet 10 mg 10 mg, oral, Nightly, First dose on Fri08/07/22 at 2100 Given 08/07/2022 8:25 PM CDT 10 mg rosuvastatin (CRESTOR) tablet 10 mg 10 mg, feeding tube, Nightly, First dose (after last modification) on [place] 08/08/22 at 2100 Given 08/11/2022 8:50 PM CDT 10 mg Given 08/10/2022 8:52 PM CDT 10 mg Given 08/09/2022 9:01 PM CDT 10 mg senna 1.76 mg/mL syrup 8.8 mg 8.8 mg, feeding tube, 2 times daily, First dose on [facility] 08/03/22 at 2100, If able to receive medications per tube. Hold for diarrhea., Indications: constipation, On hold since Fri08/05/2022 at 1014 until manually unheldIndications:constipation Given 08/05/2022 9:23 AM CDT 8.8 mg Given 08/04/2022 10:00 AM CDT 8.8 mg simethicone (MYLICON) 66.7 mg/mL oral drops 40 mg 40 mg, feeding tube, 3 times daily PRN, flatulence, Starting on [place] 08/08/22 at 0955 Given 08/11/2022 10:50 AM CDT 40 mg Given 08/10/2022 7:06 PM CDT 40 mg Given 08/08/2022 12:15 PM CDT 40 mg simethicone (MYLICON) 66.7 mg/mL oral drops 40 mg 40 mg, feeding tube, 3 times daily PRN, flatulence, Starting on 08/11/22 at 1340 Given 08/11/2022 1:47 PM CDT 40 mg sodium chloride 0.9% bolus 500 mL 500 mL, intravenous, Once, On 08/05/22 at 0430, For 1 dose New Bag 08/05/2022 4:17 AM CDT 500 mL spironolactone (ALDACTONE) split tablet 12.5 mg 12.5 mg, oral, Daily, First dose on [place] 08/08/22 at 1200 Given 08/11/2022 8:39 AM CDT 12.5 mg Given 08/10/2022 8:39 AM CDT 12.5 mg Given 08/09/2022 8:50 AM CDT 12.5 mg documented in this encounter Discontinued Medications Medication Sig Discontinue Reason Start Date End Da te dapagliflozin (FARXIGA) 10 mg tablet Take 1 tablet (10 mg total) by mouth daily Stop Taking at Discharge 08/06/2022 08/11/2022 empagliflozin (JARDIANCE) 10 mg tablet Take 1 tablet (10 mg total) by mouth daily Stop Taking at Discharge 08/06/2022 08/11/2022 apixaban (ELIQUIS) 5 mg tablet take 1 tablet by oral route 2 times every day Stop Taking at Discharge 01/24/2016 08/12/2022 ascorbic acid (VITAMIN C) 1,000 mg tablet Take 2 tablets (2,000 mg total) by mouth daily Stop Taking at Discharge 08/12/2022 artificial tears (SYSTANE) 0.3 % gel Apply 1 drop to both eyes 4 (four) times a day as needed Stop Taking at Discharge 08/12/2022 ALPRAZolam (XANAX) 0.25 mg tablet Take 1 tablet (0.25 mg total) by mouth 2 (two) times a day as needed for anxiety Stop Taking at Discharge 09/23/2018 08/12/2022 fexofenadine (WALESKA) 180 mg tablet Take 1 tablet (180 mg total) by mouth daily Stop Taking at Discharge 08/12/2022 fluticasone propionate (FLONASE) 50 mcg/actuation nasal spray Administer 2 sprays into each nostril daily Stop Taking at Discharge 07/23/2019 08/12/2022 Entresto 24-26 mg tablet Stop Taking at Discharge 01/11/2020 08/12/2022 furosemide (LASIX) 20 mg tablet Take 1 tablet (20 mg total) by mouth daily Stop Taking at Discharge 09/19/2021 08/12/2022 spironolactone (ALDACTONE) 25 mg tablet Take 1 tablet (25 mg total) by mouth daily Stop Taking at Discharge 09/19/2021 08/12/2022 documented as of this encounter Active and Recently Administered Medications Times are shown in CDT. Scheduled Medication Order 08/10/2022 08/11/2022 08/12/2022 apixaban (ELIQUIS) tablet 5 mg 5 mg, oral, Every 12 hours scheduled, First dose on 08/10/22 at 0900, Nurse to discontinue heparin infusion order and associated bolus at first administration of apixaban using 'order condition met' order source, Indications: atrial fibrillation 08 (Given - Provider: Russell Brooks RN)2051 (Given - Provider: Andreia Krishna RN) 0841 (Given - Provider: Kamlesh Lopes RN)2050 (Given - Provider: Andreia Krishna RN) 0851 (Given - Provider: Kamlesh Lopes RN) aspirin chewable tablet 81 mg 81 mg, oral, Daily, First dose (after last modification) on 08/10/22 at 0900 0838 (Given - Provider: Russell Brooks RN) 0839 (Given - Provider: Kamlesh Lopes RN) 0851 (Given - Provider: Kamlesh Lopes RN) furosemide (LASIX) tablet 40 mg (CANCELED) 40 mg, feeding tube, Daily, First dose (after last modification) on Fri08/09/22 at 0900 0840 (Given - Provider: Russell Brooks RN) 0841 (Given - Provider: Kamlesh Lopes RN) furosemide (LASIX) tablet 40 mg 40 mg, feeding tube, Daily, First dose (after last modification) on Fri08/13/22 at 0900 losartan (COZAAR) tablet 12.5 mg 12.5 mg, feeding tube, Daily, First dose (after last modification) on Fri08/09/22 at 0900 0838 (Given - Provider: Russell Brooks RN) 0840 (Given - Provider: Kamlesh Lopes RN) 0746 (Not Given - Provider: Kamlesh Lopes RN - Reason: Contraindicated) metoprolol XL (TOPROL-XL) extended release tablet 12.5 mg 12.5 mg, oral, Daily, First dose on Fri08/10/22 at 0900, Hold for HR < 60, SBP < 100 Tablets that are scored may be split, but do not crush, chew, dissolve, open or otherwise manipulate tablet/capsule. 0838 (Given - Provider: Russell Brooks RN) 0840 (Given - Provider: Kamlesh Lopes RN) 0747 (Not Given - Provider: Kamlesh Lopes RN - Reason: Contraindicated) ramelteon (ROZEREM) tablet 8 mg 8 mg, feeding tube, Nightly, First dose (after last modification) on Fri08/08/22 at 1900, Indications: Sleep-Onset Insomnia 2051 (Given - Provider: Andreia Krishna, BRAYAN) 2050 (Given - Provider: Andreia Krishna, BRAYAN) rosuvastatin (CRESTOR) tablet 10 mg 10 mg, feeding tube, Nightly, First dose (after last modification) on Fri08/08/22 at 2100 2051 (Given - Provider: Andreia Krishna, BRAYAN) 2049 (Given - Provider: Andreia Krishna, BRAYAN) spironolactone (ALDACTONE) split tablet 12.5 mg 12.5 mg, oral, Daily, First dose on [place] 08/08/22 at 1200 0839 (Given - Provider: Russell Brooks, RN) 0839 (Given - Provider: Kamlesh Lopes, RN) 0900 (Due) PRN Medication Order 08/10/2022 08/11/2022 08/12/2022 acetaminophen (TYLENOL) 32 mg/mL oral liquid 650 mg 650 mg, feeding tube, Every 4 hours PRN, 1st line for pain, fever, Starting on 08/03/22 at 2134 Carrier Fluids for Secondary Infusion - 0.9% Sodium Chloride 30 mL, intravenous, As needed, For priming tubing and/or flushing, Starting on 08/03/22 at 2342, 0-250ml/hr to flush line after IV infusions when no maintenance IV ordered. Infuse 30mL at the same rate as the secondary infusion. Run as primary IV, not intended for KVO ondansetron (ZOFRAN) injection 4 mg (CANCELED) 4 mg, intravenous, Administer over 2 Minutes, Every 6 hours PRN, nausea, vomiting, Starting on 08/03/22 at 1935, Proceed to trimethobenzamide if no relief within 30 minutes. , Indications: Nausea and Vomiting 0836 (Given - Provider: Russell Brooks RN)1901 (Given - Provider: Russell Brooks RN) 1050 (Given - Provider: Kamlesh Lopes, BRAYAN) phenoL (CHLORASEPTIC) 1.4 % oral spray 1 spray 1 spray, mouth/throat, Every 4 hours PRN, sore throat, Starting on Fri08/09/22 at 0800, For 3 days prochlorperazine (COMPAZINE) tablet 5 mg 5 mg, oral, 3 times daily PRN, nausea, vomiting, Starting on 08/11/22 at 1341 simethicone (MYLICON) 66.7 mg/mL oral drops 40 mg (CANCELED) 40 mg, feeding tube, 3 times daily PRN, flatulence, Starting on [place] 08/08/22 at 0955 1906 (Given - Provider: Russell Brooks RN) 1050 (Given - Provider: Kamlesh Lopes, BRAYAN) simethicone (MYLICON) 66.7 mg/mL oral drops 40 mg 40 mg, feeding tube, 3 times daily PRN, flatulence, Starting on 08/11/22 at 1340 1347 (Given - Provider: Kamlesh Lopes RN) documented in this encounter Orders Medications Ordered That Flaco ht Not Have Been Administered Count Last Ordered Date First Ordered Date furosemide (LASIX) tablet 20 mg 1 3 furosemide (LASIX) tablet 40 mg 1 3 aluminum-magnesium hydroxide -simethicone (MAALOX) 40-40-4 mg/mL oral suspension 30 mL 1 08/11/2022 prochlorperazine (COMPAZINE) tablet 5 mg 1 08/11/2022 phenoL (CHLORASEPTIC) 1.4 % oral spray 1 spray 1 08/09/2022 metoprolol XL (TOPROL-XL) ex tended release tablet 12.5 mg 1 08/08/2022 ibuprofen (ADVIL,MOTRIN) tab let/capsule 600 mg 1 08/07/2022 ramelteon (ROZEREM) tablet 8 mg 1 3 scopolamine patch 72 hour 1 patch 1 023 losartan (COZAAR) tablet 25 mg 1 08/06/2022 atorvastatin (LIPITOR) tablet 80 mg 1 08/03 docusate sodium (COLACE) capsule 100 mg 1 0 08/03/2022 senna (SENOKOT) tablet 1 tablet 1 3 Lab Orders Without Results Count Last Ordered D ate First Ordered Date MAGNESIUM 1 08/05/2022 POCT GLUCOSE DEVICE 2 08/03/2022 POCT PROTHROMBIN TIME, WHOLE BLOOD 1 2022 Imaging Orders Without Results Count Last Order ed Date First Ordered Date REPOSITION ENDOTRACHEAL TUBE 1 08/03/2022 EKG Orders Without Results Count Last Ordered D ate First Ordered Date ECG 12-LEAD 4 08/05/2022 08/04/2022 Nursing Count Last Ordered Date First Orde red Date FRANCOIS CATHETER - DISCONTINUE 1 08/05/2022 TELEMETRY MONITORING 1 08/05/2022 VOIDING TRIAL 1 08/05/2022 CARDIORESPIRATORY MONITOR 1 08/03/2022 NURSING COMMUNICATION 2 08/03/2022 NURSING SWALLOW ASSESSMENT 2 08/03/2022 WEIGH PATIENT 2 08/03/2022 Consult Count Last Ordered Date First Orde red Date IP CONSULT TO CARDIOLOGY 1 08/06/2022 IP CONSULT TO NUTRITION SERVICES 1 08/05/19 IP CONSULT TO NEUROLOGY 1 08/03/2022 DOCK BOSS CONSULT 1 08/03/2022 IV Count Last Ordered Date First Orde red Date SALINE LOCK IV 2 08/03/2022 Admission Count Last Ordered Date First Orde red Date ADMIT TO INPATIENT 2 08/03/2022 Transfer Count Last Ordered Date First Orde red Date TRANSFER PATIENT TO NEW UNIT 1 08/05/2022 Discharge Count Last Ordered Date First Orde red Date DISCHARGE PATIENT 1 08/12/2022 documented in this encounter Care Teams Brimmer Blocker Relationship Specialty Start Date End Date Jaleel Mcgovern MD PCP - General Family Practice 07/18/22 Reynaldo Flannery DO Consulting Physician Cardiology 09/26/17 Guanakito Holland MD Consulting Physician Cardiovascular Disease 07/29/18 documented as of this encounter
--- OUTSIDE RECORDS SUMMARY | 2024-04-11 06:37 | XMS_ITS | Encounter Summary ---
Author Organization [facility] Address [address] [facility] [address] [place] [address] Care Team Providers Care Lead Worker Of Housekeeping And Laundry Name Role Phone Ronald Castrejon MD Primary Care Provider [phone] Reynaldo Flannery DO Unavailable [phone] Guanakito Holland MD Unavailable [phone] Reason for Visit * Cardiology (Routine) - Closed Specialty Diagnoses / Procedures Referred By Contac t Referred To Contact Diagnoses Paroxysmal atrial fibrillation (CMS/HCC) (HCC) Sick sinus syndrome (CMS/HCC) (HCC) Cardiac pacemaker in situ Procedures DEVICE CHECK - REMOTE Mannie Hernandez MD [id number] [facility] [address] [place] [id number] Phone: tel: fax: [facility] Referral ID Status Reason Start Date Expiration Date Visits Re quested Visits Authorized [id number] Closed 09/19/2021 03/21/2023 1 1 Encounter Details Date Type Department Care Team (Latest Contact Info) Description 07/02/2022 8:00 AM CDT Ancillary Procedure [facility] Cardiology [address] [place] [address] [place] [id number] Paroxysmal atrial fibrillation (CMS/HCC) (HCC); Sick sinus [...] and Family Once a week 03/05/2019 Attends Baptism Services Not on file 03/05 Active Member [...] Legal Sex Female 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 DIRECTOR OF SALES AND MARKETING Gender Identity Female 10/09/2022 9:08 AM CDT Sexual Orientation Choose not to disclose 2022 9:08 AM CDT documented as of this encounter Plan of Treatment Not on file documented as of this encounter Procedures Procedure Name Priority Date/Time Associated Diagnosis Comments DEVICE CHECK - REMOTE Routine 07/02/2022 2:36 PM CDT Paroxysmal atrial fibrillation (CMS/HCC) (HCC) Sick sinus syndrome (CMS/HCC) (HCC) Cardiac pacemaker in situ documented in this encounter Results * DEVICE CHECK - REMOTE (07/02/2022 2:36 PM CDT) Anatomical Region Laterality Modality Other Narrative 10/08/2022 10:17 AM CDT Biotronik Dual Pacemaker. Dx; SSS, Afib. DOI 07/29/2018-Dr Holland. RA Lead replaced 09/14/18. AV Node Ablation 12/2018. Routine Pacemaker remote. Normal device function. Battery function-Ok, 60% remaining battery longevity to LEANA. Appropriate lead measurements noted. Presenting rhythm-Afib Vpaced. AP-1%, PERSONAL INJURY LEGAL ASSISTANT-86%. AF burden 100%. No Ventricular high rate episodes noted. Medications; Eliquis, Toprol XL, Lasix, Aldactone. See scanned report. Office pacemaker f/u 10/02/2022. Merry Cavanaugh RN Mannie Hernandez MD [facility] PROC EDURES Final Result documented in this encounter Visit Diagnoses Diagnosis Paroxysmal atrial fibrillation (CMS/HCC) (HCC) Atrial fibrillation Sick sinus syndrome (CMS/HCC) (HCC) Sinoatrial node dysfunction Cardiac pacemaker in situ documented in this encounter Care Teams Lead Worker Of Housekeeping And Laundry Relationship Specialty Start Date End Date Ronald Castrejon MD PCP - General 06/21/16 07/17/22 Reynaldo Flannery DO Consulting Physician Cardiology 09/26/17 Guanakito Holland MD Consulting Physician Cardiovascular Disease 07/29/18 documented as of this encounter
--- OUTSIDE RECORDS SUMMARY | 2024-04-11 06:37 | XMS_ITS | Encounter Summary ---
Author Organization [facility] Address [address] [facility] [address] [place] [address] Care Team Providers Care Tai Chi Instructor Name Role Phone Reynaldo Flannery DO Unavailable [phone] Guanakito Holland MD Unavailable [phone] Jaleel Mcgovern MD Primary Care Provider [phone] Encounter Details Date Type Department Care Team (Late st Contact Info) Description 08/21/2022 Telephone [facility] Cardiology [address] [place] [address] Mannie Hernandez MD [address] [facility] [address] [facility] [address] [place] [address] Social History Tobacco Use Types [...] Date Recorded PHQ-2 Total Score 0 08/12/2022 [facility] - Occupational [...] Legal Sex Female 11:18 AM DIRECTOR OF PSYCHOLOGY Gender Identity Female 10/09/2022 9:08 AM CDT Sexual Orientation Choose not to disclose 2022 9:08 AM CDT documented as of this encounter Miscellaneous Notes * Telephone Encounter - Tori Bertrand RN - 08/21/2022 10:34 AM CDT LM on dgt VM informing her that as of our last OV note I dont see a cardiac indication for parking placard but I do see that pt has been hospitalized multiple times for possible CVA and advised her to contact PCP and/or neurologist for assistance with parking placard instead. * Telephone Encounter - Nicole Cunningham - 08/21/2022 10:17 AM CDT Pt daughter calling in states that she wants to know how she can get a handicap sticker for her mom. Requesting call back to discuss. Contact [phone] documented in this encounter Plan of Treatment Not on file documented as of this encounter Visit Diagnoses Not on filedocumented in this encounter Care Teams Tai Chi Instructor Relationship Specialty Start Date End Date Jaleel Mcgovern MD PCP - General Family Practice 07/18/22 Reynaldo Flannery DO Consulting Physician Cardiology 09/26/17 Guanakito Holland MD Consulting Physician Cardiovascular Disease 07/29/18 documented as of this encounter
--- OUTSIDE RECORDS SUMMARY | 2024-04-11 06:37 | XMS_ITS | Encounter Summary ---
Author Organization [facility] Address [address] [place] [address] Care Team Providers Care Traveling Engineer Name Role Phone Reynaldo Flannery DO Unavailable Guanakito Holland MD Unavailable [phone] Jaleel Mcgovern MD Primary Care Provider [phone] Encounter Details Date Type Department Care Team (Late st Contact Info) Description 08/12/2022 Telephone [facility] Physical Medicine and Rehabilitation [address] [place] [address] Kimberly Gibbons, SPECIAL EFFECTS ARTIST Social History Tobacco Use Types Packs/Day Years [...] Date Recorded PHQ-2 Total Score 0 08/12/2022 [facility] [place] of Occupat ional Health - Occupational Stress [...] on file Legal 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 Gender Identity Female 10/09/2022 9:08 AM CDT Sexual Orientation Choose not to disclose 2022 9:08 AM CDT documented as of this encounter Last Filed Vital Signs Vital Sign Reading Time Taken Comments Blood Pressure - - Pulse - - Temperature - - Respiratory Rate - - Oxygen Saturation - - Inhaled Oxygen Concentration - - Weight 71.2 kg (157 lb) 08/12/2022 9:27 AM CDT Height 154.9 cm (5' 1 ) 08/12/2022 9:27 AM CDT Body Mass Index 29.66 08/12/2022 9:27 AM CDT documented in this encounter Miscellaneous Notes * Pre-Admission Screening - Kimberly Gibbons SLP - 08/12/2022 9:44 AM CDT [facility] Physical Medicine [facility] Rehabilitation Preadmission Screening Reason for Consult: Abena Giron is a 82 y.o. female with a medical diagnosis of left CVA and Rehab Diagnosis: L CVA whose probable impairment code for inpatient rehabilitation is: Impairment CodeGroup: Stroke Stroke: Right Body Involvement (Left Brain) The following information was gathered for consideration and maintenance in the medical record to substantiate medical necessity for IRF level of care. Patient is currently at [facility] . The patient is being referred and recommended by Dr. Melendez to be assessed both medically and functionally in regard to their premorbid functional capacity to determine whether they can benefit from a rehabilitation level of care offered by our facility. The following information is regarding the medical complexity and clinical risk factors that need to be considered for the appropriate management of the patient's care and recovery. RECOMMENDATIONS / PLAN: Goals for admission:to resolve all medical issues to optimal level and to improve patient's functional independence to a SBA level for overall self cares, mobility and transfers with least restrictive device Likelihood of reaching these goals:excellent Medical Prognosis: Medical prognosis appears good due to ongoing medical issues and existing comorbidities Functional Prognosis: Functional prognosis appears good for patient to recover to a SBA level for overall self cares, mobility and transfers with least restrictive device Therapies required to achieve goals:The patient will benefit from integrated coordination of care from the following interdisciplinary services: Medical Supervision, 24 hours Rehabilitation Nursing, Physical Therapy, Occupational Therapy, Case Management, Speech Therapy, Social Work Expected level of improvement is: excellent Expected level of improvement at discharge is: SBA Strengths for achieving goals: Strengths: Able to tolerate intensive inpatient rehab program, Motivated, Good family/social support, Good premorbid functional status, Good premorbid medical status, Living in the community premorbidly Barriers to achieving goals: Barriers: Comorbidities Expected length of stay: Estimated Length of Stay: 14 days When medically stable, anticipated disposition: Anticipated destination post discharge from inpatient rehab: home with caregiver Information regarding the rehab process including risks/benefits and financial issues were discussed with the patient and/or family and they have agreed to accept rehabilitation risks and benefits. Payor Source: Primary: Medicare A&B Secondary:Policy number: [id number] Case discussed with Dr. Nena Oneal on 08/08/22 @ 0900. Appropriateness for admission to the Inpatient Rehab Facility: yes The Pre-admission screen is an assessment of the patient's medical and functional status and has been reviewed by a rehab physician. It has been determined by the rehab physician that this patient will benefit from a comprehensive inpatient rehab admission to meet the identified goals and manage ongoing medical issues. The physician will provide documentation that supports an inpatient rehab admission including real and potential complications for which the patient is at risk with a plan to manage and avoid those risks HISTORY: Past Medical History: Past Medical History: Diagnosis [...] 2014 Sleep apnea Vertigo Past Surgical History: Past [...] Fibrillation: Cardiovascular Intervention (ablation) SKIN BIOPSY Social History: Social History Tobacco Use Smoking status: Former Types: Cigarettes Quit date: 1974 Years since quittin.4 Smokeless tobacco: Never Substance and Sexual Activity Drug use: No Sexual activity: Defer Alcohol Use: Not on file Patient's Preferred Language: Icelandic Cultural Requests During Hospitalization: none conveyed Acute Conditions/Co-morbidities requiring Acute Rehab: Arrhythmia, Neurological disorder/exacerbation, Cerebrovascular Accident (CVA), Anemia, Altered mental status, Pneumonia and/or other respiratory issues, Other (comment) (Acute LMCA stroke s/p TNK & MT TICI 2B, right side weakness, right side facial droop, dysphagia, global aphasia, Several bilateral femoral artery stenosis, L subclavian occlusion, Chronic A-Fib s/p AV node ablation, SSS s/p pacemaker, Troponemia, HLD/HTN) HPI: 08/03/22: Hyperacute Stroke Team - HASTE Consult Note Reason for consult: Thrombectomy page s/p TNK at OSH Chief complaint: Right sided weakness and global aphasia HPI: Abena Giron is a 82 year old woman with a PMH of atrial fibrillation (prescribed Eliquis, unclear if compliant), HTN, HLD, and CAD (s/p stents) on DAPT who presents after receiving TNK at [facility] as a thrombectomy page. Per the patient's family at bedside, the patient was having lunch with one of her daughters when her daughter noticed that she started leaning towards the right. She subsequently became mute and developed a left gaze preference. Her last known normal was 1305. She was[facility] to [facility], there her NIHSS was reportedly a [address] physician[address] Gomez evaluated the patient by telestroke and recommended a CTH + CTA head and neck. She had a hyperdense left MCA sign on CTH and a left M1 occlusion on CTA. She was a GO for TNK and received the drug at 1423.She was then transferred to [facility] for thrombectomy evaluation. On arrival her NIHSS [...] available) and taken to the thrombectomy suite. Assessment & Plan: Abena Giron is a 82 year old woman with a PMH of atrial fibrillation (prescribed Eliquis, unclear if compliant), HTN, HLD, and CAD (s/p stents) on DAPT who presents after receiving TNK at [facility] as a thrombectomy page. The patient is GO for MT, she will need repeat labs to ensure that the values are real. If they arethen she will need a workup for metabolic acidosis. Moreover, she has pulmonary edema on CT CAP that needs follow up. Disposition: Thrombectomy then NNICU 08/03/22: Neuro Critical Care Admission H&P CC: Acute right sided weakness HPI: Ms Giron is a 82y/o female with PMH of CAD, DC, SSS s/p Biotronik pacemaker, Atrial fibrillation (previously [...] BP of 68/31. She was taken to [facility] for further evaluation as a Code Stoke. [...] of TNK at 14:28 and transferred to [facility] ED for mechanical thrombectomy evaluation. Upon arrival to [facility] ED her vital signs were: HR 82, [...] zofran, propofol, and alysa-synephrine. EBL 50 ml. PMHX: has a past medical history of Adiposity, Aortic aneurysm (HCC), Arthritis, Atrial fibrillation (CMS/HCC) (HCC), CHF (congestive heart failure) (CMS/HCC) (HCC), Colon polyp, Depression, Diverticulosis, Dysphagia, Gastroesophageal reflux disease, History of loop recorder, OTHER MEDICAL, OTHER MEDICAL, OTHER MEDICAL, OTHER MEDICAL, Hyperlipidemia, Hypertension, Myocardial infarction (CMS/HCC) Sleep apnea, and Vertigo. PSHX: has a past surgical history that includes Other surgical history (Right, 1979); Cholecystectomy (1980); Other surgical history; Other surgical history (2015); Other surgical history (2015); Cataract extraction w/ intraocular lens implant (Bilateral); Cardiac pacemaker placement; Abdominal surgery; Eye surgery; and Skin biopsy. 08/06/22: Cardiology Consult Note - General Cardiology Requesting Attending: Adryan Bailon MD Reason for Consult: Acute CHF / transition to outpatient care HPI Ms Abena Giron is an 82 year-old woman with history of HTN, HLD, CAD s/p JOI to mid LCx (07/01/13), HFrEF (40% -> 20% on TTE 08/05/12), SSS and paroxysmal AF s/p AVJN ablation and DC-PPM (Biotronik, implanted 07/30/18 with RA lead revision on 09/14/18 done at [facility]), non-morbid obesity (BMI 30), GENNY non compliant with CPAP, PAD and carotid artery stenosis who presented to [facility] on 08/03/22 with R si ded hemiparesis, [...] their arrival. She was initially taken to [facility] to evaluation for stroke. Her BP's improved to 109/[address] Head showed a large hyperdense MCA without hemorrhage, then subsequent CTA Head/Neck showed complete occlusion of theM1 segment of the L MCA. There were also carotid stenoses in the proximal LICA (80%) and proximal SKYLAR (50%). Ms Giron was then transferred to [facility] for tPA and thrombectomy. Ms Giron had an DC in 2013 requiring JOI to mid LCx performed at [facility]. 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 She had been trialed on Amiodarone and Metoprolol but these were discontinued due to side effects (extreme nausea, extreme fatigue, lightheadedn ess). Ultimately because she was intolerant of these medications, options including Sotalol or Tikosyn vs AVJ RFA with PPM implantation were reviewed. Ms Giron states she is very sensitive to medications so did not want to try other options and instead elected for AVJ ablation and DC-PPM implantation. Her subsequent device interrogations have shown 100% AF burden with 85-95% RV pacing. General Cardiology was consulted for recommendations on [...] Anthony 25, and Lasix 20 daily. - recommend [...] - Metoprolol as above - D/C Amiodarone Neuro Imaging CT Head WO Contrast Result Date: 08/04/2022 [...] reperfusion of the left middle cerebral artery 08/12/22: Stroke Daily Progress Note Assessment and Plan Ms. Giron is a 82 y.o. right handed woman with past medical history of CAD, DC, SSS s/p Biotronikpacemaker, Atrial fibrillation (previously on [...] Work-up: - Monitor on telemetry Consults: SMART (Insurance Office Supervisor, PT/OT, SPECIAL EFFECTS ARTIST, Spiritual Care) #Hyperlipidemia LDL on admission was 68. Goal LDL for secondary stroke prevention is <70. She has previously refused anti-lipid medication reporting feeling unwell on medicaiton and with muscle pain without weakness. # CAD s/p DC with stent placement (2013) # HFrEF (LVEF 20%, was LVEF 40% in 2019) She follows with Dr. Hernandez [facility] - last seen 07/18/22 in office. [...] interrogated 07/02/2022: 60% battery life remaining, demonstrated 100% Afib burden - Rate controlled without medications and V-paced - Per prior family reports, was prescribed Eliquis 5 mg BID and taking intermittently, however her pharmacy ([facility]) indicates she does not fill this medication [...] in the field was 68/31, 90/45 at [facility]. Initially responded to fluid boluses. Noted to have chronic left subclavian occlusion on CT CAP 08/03 and severe femoral stenosis on angiogram. Wide pulse pressure noted on her A line while in NNICU suggests arteriosclerosis. This patient is medically ready for discharge. Disposition: Inpatient Rehab Code Status: LIMITED - No CPR Diet: Dysphagia 1, regular liquid DVT Prophylaxis: Lovenox 08/12/22: Inpatient Discharge Summary DETAILS OF HOSPITAL STAY Presenting Problem/History of Present Illness: Ms Giron is a 82y/o female with PMH of CAD, DC, SSS s/p Biotronik pacemaker, Atrial fibrillation (previously [...] BP of 68/31. She was taken to [facility] for further evaluation as a Code Stoke. [...] of TNK at 14:28 and transferred to [facility] ED for mechanical thrombectomy evaluation. Upon arrival to [facility] ED her vital signs were: HR 82, [...] zofran, propofol, and alysa-synephrine. EBL 50 ml. Ms. Giron is a 82 y.o. right handed woman with past medical history of CAD, DC, SSS s/p Biotronikpacemaker, Atrial fibrillation (previously on [...] differential for consideration per TOAST criteria include: [id number] embolism or cardioembolism. Cardioembolism is most likely [...] mg PO qHS (SPARCL trial). The current [place] [employer] guidelines recommend long-term treatment with [...] Aspirin 81mg daily for her cardiovascular comorbidities. Other medical problems addressed during this hospitalization: #Hyperlipidemia LDL on admission was 68. Goal LDL for secondary stroke prevention is <70. She has previously refused anti-lipid medication reporting feeling unwell on medicaiton and with muscle pain without weakness. # CAD s/p DC with stent placement (2013) # HFrEF (LVEF 20%, was LVEF 40% in 2019) She follows with Dr. Hernandez [facility] - last seen 07/18/22 in office. [...] which showed 60% battery life remaining, demonstrated 100% Afib burden . Currently rate controlled without medications and V-paced. Per prior family reports, was prescribed Eliquis 5 mg BID and taking intermittently, however her pharmacy ([facility]) indicates she does not fillthis medication and her daughter indicates she does not fill at other pharmacies. She was restartedon Eliquis on 08/10. # Troponemia, resolved Trop [...] START Farxiga 10mg daily - STOP Entresto Prior to admission, patient lived alone and was completely independent with all ADLs, mobility, transfers, homemaking; was driving Currently, patient has expressive aphasia, dysphagia on pureed/thin diet; is Mod A for grooming andLE Dressing, Min-Mod A for transfers; Min A for bed mobility, and ambulates 60ft WW Narcisa Due to ongoing medical issues and a significant decline in functional independence, patient is now referred for acute inpatient rehab program. Date of Onset: Date of Onset: 08/03/22 Date Admitted to Acute: Date admitted to acute: 08/03/22 Precautions/Restrictions: Aspiration, Falls Millis Suicide Severity Rating Scale: Allergies: Allergies Allergen Reactions Phenobarbital Hallucinations Codeine [...] (See comments) severe heart pain Diltiazem Itching Code Status: LIMITED - No CPR Vitals: There were no vitals filed for this visit. Current Systems Summary: Height: 154.9 cm (5' 1 ) Weight: 71.2 kg (157 lb) Diet: Dyaphagia 1 - pureed solid; thin liquid Bladder: Francois cath Bowel: Incontinent Date of last BM: 08/07/22 Integumentary: sai score 17 Cardiopulmonary: Room air Dialysis: N/A Pain: Patient has pain that is controlled on current regimen IVs: Current meds: Current Facility-Administered Medications on File Prior to Visit Medication Dose Route Frequency Provider Last Rate Last Admin acetaminophen (TYLENOL) 32 mg/mL oral liquid 650 mg 650 mg feeding tube Q4H PRN Alice Yoo NP 650 mg at 08/07/22 0628 apixaban (ELIQUIS) tablet 5 mg 5 mg oral Q12H NAVEED Mannie Valencia MD 5 mg at 08/12/22 0851 aspirin chewable tablet 81 mg 81 mg oral Daily Mannie Valencia MD 81 mg at 08/12/22 0851 Carrier Fluids for Secondary Infusion - 0.9% Sodium Chloride 30 mL intravenous PRN Alice Yoo NP 30 mL at 08/03/22 2351 [START ON 08/13/2022] furosemide (LASIX) tablet 40 mg 40 mg feeding tube Daily Chet Perez MD PhD losartan (COZAAR) tablet 12.5 mg 12.5 mg feeding tube Daily Capri Curran MD 12.5 mg at 08/11/22 0840 metoprolol XL (TOPROL-XL) extended release tablet 12.5 mg 12.5 mg oral Daily Mannie Valencia MD 12.5 mg at 08/11/22 0840 [] phenoL (CHLORASEPTIC) 1.4 % oral spray 1 spray 1 spray mouth/throat Q4H PRN Evelyn Hawkins MD prochlorperazine (COMPAZINE) tablet 5 mg 5 mg oral TID PRN Capri Curran MD ramelteon (ROZEREM) tablet 8 mg 8 mg feeding tube Nightly Capri Curran MD 8 mg at 08/11/222050 rosuvastatin (CRESTOR) tablet 10 mg 10 mg feeding tube Nightly Capri Curran MD 10 mg at 08/11/222049 simethicone (MYLICON) 66.7 mg/mL oral drops 40 mg 40 mg feeding tube TID PRN Capri Curran MD 40 mg at 08/11/22 1347 spironolactone (ALDACTONE) split tablet 12.5 mg 12.5 mg oral Daily Capri Curran MD 12.5 mg at 08/11/22 0839 [DISCONTINUED] aluminum-magnesium hydroxide-simethicone (MAALOX) 40-40-4 mg/mL oral suspension 30 mL 30 mL oral QID PRN Capri Curran MD [DISCONTINUED] furosemide (LASIX) tablet 20 mg 20 mg feeding tube Daily Chet Perez MD PhD [DISCONTINUED] furosemide (LASIX) tablet 40 mg 40 mg feeding tube Daily Capri Curran MD 40 mg at 08/11/22 0841 [DISCONTINUED] ondansetron (ZOFRAN) injection 4 mg 4 mg intravenous Q6H PRN Alice Yoo NP 4 mg at 08/11/22 1050 [DISCONTINUED] simethicone (MYLICON) 66.7 mg/mL oral drops 40 mg 40 mg feeding tube TID PRN Capri Curran MD 40 mg at 08/11/22 1050 Current Outpatient Medications on File Prior to Visit Medication Sig Dispense Refill ALPRAZolam (XANAX) 0.25 mg tablet Take 1 tablet (0.25 mg total) by mouth 2 (two) times a day as needed for anxiety (Patient not taking: Reported on 08/28/2021) 60 tablet 1 apixaban (ELIQUIS) 5 mg tablet take 1 tablet by oral route 2 times every day 0 0 apixaban (ELIQUIS) 5 mg tablet Take 1 tablet (5 mg total) by mouth every 12 (twelve) hours 60 tablet 11 artificial tears (SYSTANE) 0.3 % gel Apply 1 drop to both eyes 4 (four) times a day as needed (Patient not taking: Reported on 07/18/2022) ascorbic acid (VITAMIN C) 1,000 mg tablet Take 2 tablets (2,000 mg total) by mouth daily aspirin 81 mg chewable tablet Take 1 tablet (81 mg total) by mouth daily 30 tablet 11 cholecalciferol (VITAMIN D-3) 2,000 unit tablet take 1 tablet by oral route every day 90 3 cyanocobalamin (Vitamin B-12) 100 mcg tablet Take 1 tablet (100 mcg total) by mouth daily dapagliflozin (FARXIGA) 10 mg tablet Take 1 tablet (10 mg total) by mouth daily 30 tablet 11 Entresto 24-26 mg tablet (Patient not taking: Reported on 08/28/2021) fexofenadine (WALESKA) 180 mg tablet Take 1 tablet (180 mg total) by mouth daily fluticasone propionate (FLONASE) 50 mcg/actuation nasal spray Administer 2 sprays into each nostrildaily 16 g 3 furosemide (LASIX) 20 mg tablet Take 1 tablet (20 mg total) by mouth daily 90 tablet 1 furosemide (LASIX) 40 mg tablet Take 1 tablet (40 mg total) by mouth daily 30 tablet 11 losartan (COZAAR) 25 mg tablet Take 0.5 tablets (12.5 mg total) by mouth daily 15 tablet 11 metoprolol XL (TOPROL-XL) 25 mg extended release tablet Take 0.5 tablets (12.5 mg total) by mouth daily 15 tablet 11 rosuvastatin (CRESTOR) 10 mg tablet Take 1 tablet (10 mg total) by mouth nightly 30 tablet 11 spironolactone (ALDACTONE) 25 mg tablet Take 1 tablet (25 mg total) by mouth daily 90 tablet 1 spironolactone (ALDACTONE) 25 mg tablet Take 0.5 tablets (12.5 mg total) by mouth daily 15 tablet 11 Substance abuse history: Abena Giron reports that she quit smoking about 48 years ago. Her smoking use included cigarettes. She has never used smokeless tobacco. She reports that she does not use drugs. No alcohol history on file. Diagnostic Tests: Recent Results (from the past 72 hour(s)) Basic metabolic panel Collection Time: 08/09/22 8:39 PM Result Value Ref Range Sodium 141 135 - 145 mmol/L Potassium, pl 4.1 3.3 - 4.9 mmol/L Chloride 100 97 - 110 mmol/L CO2 29 22 - 32 mmol/L Anion gap 12 2 - 15 mmol/L BUN 31 (H) 8 - 25 mg/dL Creatinine 0.77 0.60 - 1.10 mg/dL Glucose 112 70 - 199 mg/dL Calcium 9.5 8.5 - 10.3 mg/dL Magnesium Collection Time: 08/09/22 8:39 PM Result Value Ref Range Magnesium 2.2 1.4 - 2.5 mg/dL eGFR Collection Time: 08/09/22 8:39 PM Result Value Ref Range eGFR 77 (L) 90 - 130 mL/min/1.73 m2 CBC without differential Collection Time: 08/09/22 9:30 PM Result Value Ref Range WBC 9.7 3.8 - 9.9 K/cumm Hgb 11.3 (L) 11.9 - 15.5 g/dL Hct 33.7 (L) 35.6 - 45.5 % Plt 265 150 - 400 K/cumm MPV 10.8 9.1 - 12.3 fL RBC 3.54 (L) 3.90 - 5.20 M/cumm MCV 95.2 81.3 - 96.4 fL MCH 31.9 27.1 - 33.3 pg MCHC 33.5 32.3 - 35.7 g/dL RDW CV 13.8 11.1 - 14.9 % RDW SD 48.1 35.7 - 48.1 fL NRBC abs 0.00 0.00 - 0.01 K/cumm Basic metabolic panel Collection Time: 08/11/22 5:47 AM Result Value Ref Range Sodium 140 135 - 145 mmol/L Potassium, pl 4.1 3.3 - 4.9 mmol/L Chloride 101 97 - 110 mmol/L CO2 30 22 - 32 mmol/L Anion gap 9 2 - 15 mmol/L BUN 31 (H) 8 - 25 mg/dL Creatinine 0.75 0.60 - 1.10 mg/dL Glucose 96 70 - 199 mg/dL Calcium 8.9 8.5 - 10.3 mg/dL Magnesium Collection Time: 08/11/22 5:47 AM Result Value Ref Range Magnesium 2.1 1.4 - 2.5 mg/dL CBC without differential Collection Time: 08/11/22 5:47 AM Result Value Ref Range WBC 7.7 3.8 - 9.9 K/cumm Hgb 11.6 (L) 11.9 - 15.5 g/dL Hct 35.0 (L) 35.6 - 45.5 % Plt 271 150 - 400 K/cumm MPV 10.5 9.1 - 12.3 fL RBC 3.72 (L) 3.90 - 5.20 M/cumm MCV 94.1 81.3 - 96.4 fL MCH 31.2 27.1 - 33.3 pg MCHC 33.1 32.3 - 35.7 g/dL RDW CV 13.4 11.1 - 14.9 % RDW SD 46.2 35.7 - 48.1 fL NRBC abs 0.00 0.00 - 0.01 K/cumm COVID-19 Coronavirus RNA Nasopharyngeal Collection Time: 08/11/22 5:47 AM Specimen: Nasopharyngeal Result Value Ref Range COVID-19 RNA Negative Negative eGFR Collection Time: 08/11/22 5:47 AM Result Value Ref Range eGFR 79 (L) 90 - 130 mL/min/1.73 m2 Basic metabolic panel Collection Time: 08/11/22 9:54 PM Result Value Ref Range Sodium 141 135 - 145 mmol/L Potassium, pl 3.9 3.3 - 4.9 mmol/L Chloride 100 97 - 110 mmol/L CO2 31 22 - 32 mmol/L Anion gap 10 2 - 15 mmol/L BUN 29 (H) 8 - 25 mg/dL Creatinine 0.75 0.60 - 1.10 mg/dL Glucose 90 70 - 199 mg/dL Calcium 9.3 8.5 - 10.3 mg/dL Magnesium Collection Time: 08/11/22 9:54 PM Result Value Ref Range Magnesium 2.2 1.4 - 2.5 mg/dL CBC without differential Collection Time: 08/11/22 9:54 PM Result Value Ref Range WBC 8.2 3.8 - 9.9 K/cumm Hgb 11.5 (L) 11.9 - 15.5 g/dL Hct 34.5 (L) 35.6 - 45.5 % Plt 289 150 - 400 K/cumm MPV 11.0 9.1 - 12.3 fL RBC 3.69 (L) 3.90 - 5.20 M/cumm MCV 93.5 81.3 - 96.4 fL MCH 31.2 27.1 - 33.3 pg MCHC 33.3 32.3 - 35.7 g/dL RDW CV 13.2 11.1 - 14.9 % RDW SD 45.7 35.7 - 48.1 fL NRBC abs 0.00 0.00 - 0.01 K/cumm eGFR Collection Time: 08/11/22 9:54 PM Result Value Ref Range eGFR 79 (L) 90 - 130 mL/min/1.73 m2 Prior Functional Status: Mobility status/Ambulation aid/assistive devices: Transfers: Independent Walking: Independent Walking assistive devices used: None Stair negotiation: Independent Activities of daily living (ADL) status/ Assistive devices used for ADLs: Dressing: Independent Bathing: Independent Toileting: Independent Bladder: Continent Bowel: Continent Domestic Chores: Independent Driving: Yes Functional limitations: Hearing: Normal Sensory Vision: Normal Cognition: Intact Communication: Normal Nutrition: Normal Occupation: retired for age Pre-Hospital Vocational Status: Retired for age Home Setting: One story home Prehospital Lives With: Alone Exterior Home Access: Steps (2 FANTASMA) Interior Home Access: No steps Current functional status: ADL: OT Functional Mobility: 08/12/22: transfers Min-Mod A; bed mobility Min A (08/12/2022 9:31 AM) OT Self Care: grooming and LE dressing - Mod A (08/12/2022 9:31 AM) OT Cognition: Ox4 (08/12/2022 9:31 AM) OT Communication: expressive aphasia (08/12/2022 9:31 AM) Mobility/Transfers: PT Functional Mobility: 08/11/22: ambulation 60ft WW Min A; transfers Min A; bed mobility SBA (08/12/2022 9:31 AM) Cognition/Communication/Swallowing: SPECIAL EFFECTS ARTIST Communication: expressive aphasia (08/12/2022 9:31 AM) SPECIAL EFFECTS ARTIST Swallowing: Mild Dysphagia - pureed/thin (08/12/2022 9:31 AM) Conditions requiring acute rehab and risk for complications: Gait dysfunction - risk for falls and further injury, fracture Uncontrolled Hypertension - risk for stroke, stroke extension, DC Decreased mobility - Risk for Fall, skin breakdown, further injury, decompensation, muscle flaccidity Balance Issues- Risk for Fall, further injury Dysphagia - Risk for Aspiration Pneumonia, injection, respiratory decompensation, hypoxemia Bowel and Bladder Regime- Risk for constipation, bowel obstruction, bladder retention, Infection Hemiparesis/Hemiplegia- Risk for falls, decreased safety, limb contractures, DVT, Skin breakdown, limb neglect, B/P fluctuations Treatments needed to address conditions requiring acute rehab: Daily Face to Face oversight by a provider, Intense PT/OT/SP, Access to Software Sales Representative physicians, Supervised feeding groups, Frequent Neuroassessment, Bowel Program, Modified Barium Swallow/FEES Alternative Level of Care considered and not appropriate due to: Consult physician oversight, Medication adjustment/oversight, Neurochecks, Daily MD oversight, Repeat swallow studies Patient/Caregiver Goals: Patient and Family Goals: to return home with caregiver assist and C Cosigned by Opal Mace MD at 08/12/2022 10:31 AM CDT Associated attestation - Opal Mace MD - 08/12/2022 10:31 AM CDT Rehab Referral Decision: Approved I have reviewed this patient Pre-admission Screening Information.The patient is medically stable toparticipate in an inpatient rehabilitation program. In my rehabilitation experience and professional judgement, this patient meets medical necessity criteria and requires an inpatient rehabilitation stay to manage current nursing and medical issues. The patient requires supervision by a rehabilitation physician at least three times a week. The patient requires the Interdisciplinary team approach of an inpatient rehabilitation program. This patient can reasonably expect to participate and benefit from the intensive Inpatient rehabilitation program offered at [facility] . documented in this encounter Plan of Treatment Not on file documented as of this encounter Visit Diagnoses Not on filedocumented in this encounter Care Teams Traveling Engineer Relationship Specialty Start Date End Date Jaleel Mcgovern MD PCP - General Family Practice 07/18/22 Reynaldo Flannery DO Consulting Physician Cardiology 09/26/17 Guanakito Holland MD Consulting Physician Cardiovascular Disease 07/29/18 documented as of this encounter
--- OUTSIDE RECORDS SUMMARY | 2024-04-11 06:37 | XMS_ITS | Encounter Summary ---
Author Organization [facility] Address [address] [place] [address] Care Team Providers Care Time Clock Inspector Name Role Phone Ronald Castrejon MD Primary Care Provider [phone] Reynaldo Flannery DO Unavailable [phone] Guanakito Holland MD Unavailable [phone] Encounter Details Date Type Department Care Team (Late st Contact Info) Description 06/08/2020 Orders Only [facility] Information Management [address] [place] [address] Ronald Castrejon MD [address] [place] [address] [address] Social History Tobacco Use Types Packs/Day Years [...] and Family Once a week 03/05/2019 Attends [employer] Services Not on file 03/05 Active Member [...] on file Legal Sex Female 11:18 AM WARP 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 Gender Identity Female 10/09/2022 9:08 AM CDT Sexual Orientation Choose not to disclose 2022 9:08 AM CDT documented as of this encounter Plan of Treatment Not on file documented as of this encounter Procedures Procedure Name Priority Date/Time Associated Diagnosis Comments SCAN - LABS 06/08/2020 documented in this encounter Results * SCAN - LABS (06/08/2020) Ronald Castrejon MD Edited Result - Final documented in this encounter Visit Diagnoses Not on filedocumented in this encounter Care Teams Time Clock Inspector Relationship Specialty Start Date End Date Ronald Castrejon MD PCP - General 06/21/16 07/17/22 Reynaldo Flannery DO Consulting Physician Cardiology 09/26/17 Guanakito Holland MD Consulting Physician Cardiovascular Disease 07/29/18 documented as of this encounter
--- OUTSIDE RECORDS SUMMARY | 2024-04-11 06:37 | XMS_ITS | Encounter Summary ---
Author Organization [facility] Address [address] [place] [address] Care Team Providers Care Gum Sprayer Name Role Phone Ronald Castrejon MD Primary Care Provider [phone] Reynaldo Flannery DO Unavailable [phone] Guanakito Holland MD Unavailable [phone] Encounter Details Date Type Department Care Team (Late st Contact Info) Description 04/07/2020 Orders Only [facility] [address] [place] [address] Ronald Castrejon MD [address] [place] [address] [address] [place] [address] Screening mammogram, encounter for (Primary Dx) Social History Tobacco Use Types [...] and Family Once a week 03/05/2019 Attends [employer] Services Not on file 03/05 Active Member [...] on file Legal Sex Female 11:18 AM MANAGER ASSISTED LIVING Gender Identity Female 10/09/2022 9:08 AM CDT Sexual Orientation Choose not to disclose 2022 9:08 AM CDT documented as of this encounter Plan of Treatment Not on file documented as of this encounter Visit Diagnoses Diagnosis Screening mammogram, encounter for- Primary documented in this encounter Care Teams Gum Sprayer Relationship Specialty Start Date End Date Ronald Castrejon MD PCP - General 06/21/16 07/17/22 Reynaldo Flannery DO Consulting Physician Cardiology 09/26/17 Guanakito Holland MD Consulting Physician Cardiovascular Disease 07/29/18 documented as of this encounter
--- OUTSIDE RECORDS SUMMARY | 2024-04-11 06:37 | XMS_ITS | Encounter Summary ---
Author Organization [facility] Address [address] [place] [address] Phone Care Team Providers Care Instructional Manager Name Role Phone Reynaldo Flannery DO Unavailable [phone] Guanakito Holland MD Unavailable [phone] Jaleel Mcgovern MD Primary Care Provider [phone] Encounter Details Date Type Department Care Team (Late st Contact Info) Description 08/06/2022 Telephone [facility] Cardiology [address] [facility] 8th [place] [address] [place] [address] Nasrin Garcia Social History Tobacco Use Types Packs/Day Years [...] Recorded Patient Health Questionnaire-2 Score 0 08/23/2022 [facility] - [...] on file Legal Sex Female 11:18 AM CLERK Gender Identity Female 10/09/2022 9:08 AM CDT Sexual Orientation Choose not to disclose 2022 9:08 AM CDT documented as of this encounter Miscellaneous Notes * Telephone Encounter - Mariola Blackman - 08/06/2022 9:43 AM CDT SENT TO DR. LICONA AND DR. ALVAREZ * Telephone Encounter - Nasrin Garcia - 08/06/2022 9:36 AM CDT CARDIOLOGY CONSULT 08/06/2022 RECEIVED BY: Nasrin Garcia IS THE PATIENT CURRENTLY UNDERGOING CANCER TREATMENTS? no TYPE OF CONSULT: general CALLER'S NAME: Cee CALLER'S PAGER: [phone] PATIENT'S NAME: Abena Giron : 1940 CAMPUS: [facility] PATIENT'S LOCATION: [facility] REASON FOR CONSULT: A-FIB ATTENDING PHYSICIAN: Dr. Minh Fernando documented in this encounter Plan of Treatment Not on file documented as of this encounter Visit Diagnoses Not on filedocumented in this encounter Care Teams Instructional Manager Relationship Specialty Start Date End Date Jaleel Mcgovern MD PCP - General Family Practice 07/18/22 Reynaldo Flannery DO Consulting Physician Cardiology 09/26/17 Guanakito Holland MD Consulting Physician Cardiovascular Disease 07/29/18 documented as of this encounter
--- OUTSIDE RECORDS SUMMARY | 2024-04-11 06:37 | XMS_ITS | Encounter Summary ---
Author Organization [facility] Address [address] [place] [address] Care Team Providers Care Kitchenhand Name Role Phone Reynaldo Flannery DO Unavailable [phone] Guanakito Holland MD Unavailable [phone] Jaleel Mcgovern MD Primary Care Provider [phone] Encounter Details Date Type Department Care Team (Latest Contact Info) Description 08/03/2022 1:28 PM CDT - 08/03/2022 11:59 PM CDT [...] and Family Once a week 03/05/2019 Attends [employer] Not on file 03/05 Active Member [...] on file Legal Sex Female 11:18 AM WEATHER ANALYST Gender Identity Female 10/09/2022 9:08 AM [...] on filedocumented in this encounter Care Teams Kitchenhand Relationship Specialty Start Date End Date Jaleel Mcgovern MD PCP - General Family Practice 07/18/22 Reynaldo Flannery DO Consulting Physician Cardiology 09/26/17 Guanakito Holland MD Consulting Physician Cardiovascular Disease 07/29/18 documented as of this encounter
--- OUTSIDE RECORDS SUMMARY | 2024-04-11 06:37 | XMS_ITS | Encounter Summary ---
Author Organization [facility] Address [address] [place] [address] Care Team Providers Care Manufacturing Tech Name Role Phone Ronald Castrejon MD Primary Care Provider [phone] Reynaldo Flannery DO Unavailable [phone] Guanakito Holland MD Unavailable [phone] Encounter Details Date Type Department Care Team (Late st Contact Info) Description 02/01/2021 Telephone [facility] [address] [facility] [address] [facility] [address] [place] [address] Ronald Castrejon MD [address] [place] [address] [address] [place] [id number] Social History Tobacco Use Types Packs/Day Years [...] and Family Once a week 03/05/2019 Attends Worship Services Not on file 03/05 Active Member [...] on file Legal Sex Female 11:18 AM MUD MIXER OPERATOR Gender Identity Female 10/09/2022 9:08 AM CDT Sexual Orientation Choose not to disclose 2022 9:08 AM CDT documented as of this encounter Miscellaneous Notes * Telephone Encounter - Beth Levy - 02/19/2021 10:12 AM CST josephi to -pt refuses appt at this time, says will c/b when ready to r/s. thanks MIXER OPERATOR * Telephone Encounter - Beth Levy - 02/01/2021 9:43 AM CST Allowing pt time to feel better MIXER OPERATOR * Telephone Encounter - Jose Andrade MA - 02/01/2021 8:04 AM MUD MIXER OPERATOR Appointment Cancellation Appt date/time: 02/01/21 @2:30 with JR Reason for appt: subsequent medicare cpe (G0439) Reason for cxl: in bed with back pain and unable to get out of bed, cancelled through the exchange NOV: none MARY:01/31/20 # of cxl or no shows in last year: 1-cxl Controlled Rx: Alprazolam-doesn't look to have been filled since 2018 MIXER OPERATOR documented in this encounter Plan of Treatment Not on file documented as of this encounter Visit Diagnoses Not on filedocumented in this encounter Care Teams Manufacturing Tech Relationship Specialty Start Date End Date Ronald Castrejon MD PCP - General 06/21/16 07/17/22 Reynaldo Flannery DO Consulting Physician Cardiology 09/26/17 Guanakito Holland MD Consulting Physician Cardiovascular Disease 07/29/18 documented as of this encounter
--- OUTSIDE RECORDS SUMMARY | 2024-04-11 06:37 | XMS_ITS | Encounter Summary ---
Author Organization [facility] Address [address] [place] [address] Care Team Providers Care Regulatory Product Manager Name Role Phone Ronald Castrejon MD Primary Care Provider [phone] Reynaldo Flannery DO Unavailable [phone] Guanakito Holland MD Unavailable [phone] Encounter Details Date Type Department Care Team (Late st Contact Info) Description 09/20/2021 Telephone [facility] Cardiology [address] [place] [address] Mannie Hernandez MD [address] [address] Social History Tobacco Use Types [...] and Family Once a week 03/05/2019 Attends [employer] Services Not on file 03/05 Active Member [...] on file Legal Sex 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 Dx; SSS, Afib. DOI 07/29/2018-Dr Holland. RA Lead replaced 09/14/18. AV Node Ablation 12/2018. I left message on patient's VM regarding transferring her remote monitoring. Requested she call [facility] at [phone] [id number] to deactivate patient's remote monitoring so it can be transferred to our office site. SONU Mays. documented in this encounter Plan of Treatment Not on file documented as of this encounter Visit Diagnoses Not on filedocumented in this encounter Care Teams Regulatory Product Manager Relationship Specialty Start Date End Date Ronald Castrejon MD PCP - General 06/21/16 07/17/22 Reynaldo Flannery DO Consulting Physician Cardiology 09/26/17 Guanakito Holland MD Consulting Physician Cardiovascular Disease 07/29/18 documented as of this encounter
--- OUTSIDE RECORDS SUMMARY | 2024-04-11 06:37 | XMS_ITS | Encounter Summary ---
Author Organization [facility] Address [address] [place] [address] Care Team Providers Care Irrigator Valve Pipe Name Role Phone Ronald Castrejon MD Primary Care Provider [phone] Reynaldo Flannery DO Unavailable [phone] Guanakito Holland MD Unavailable [phone] Encounter Details Date Type Department Care Team (Late st Contact Info) Description 05/09/2020 Orders Only [facility] [address] [facility] [address] [place] [address] Ronald Castrejon MD [address] [place] [address] [address] [place] [id number] Social History Tobacco Use Types Packs/Day Years [...] and Family Once a week 03/05/2019 Attends [employer]oration[employer] Services Not on file 03/05 Active Member [...] on file Legal Sex Female 11:18 AM OPTICAL MANAGER Gender Identity Female 10/09/2022 9:08 AM CDT Sexual Orientation Choose not to disclose 2022 9:08 AM CDT documented as of this encounter Ordered Prescriptions Prescription Sig Dispense Quantity Refills Last Filled Start Date End Date azithromycin (ZITHROMAX) 250 mg tablet Take 2 tabs (500 mg) by mouth today, than 1 tab (250 mg) daily for 4 days. 6 tablet 05/09/2020 05/14/2020 documented in this encounter Plan of Treatment Not on file documented as of this encounter Visit Diagnoses Not on filedocumented in this encounter Care Teams Irrigator Valve Pipe Relationship Specialty Start Date End Date Ronald Castrejon MD PCP - General 06/21/16 07/17/22 Reynaldo Flannery DO Consulting Physician Cardiology 09/26/17 Guanakito Holland MD Consulting Physician Cardiovascular Disease 07/29/18 documented as of this encounter
--- OUTSIDE RECORDS SUMMARY | 2024-04-11 06:37 | XMS_ITS | Encounter Summary ---
Author Organization [facility] Address [address] [place] [address] Care Team Providers Care Automotive Fuel Injection Servicer Name Role Phone Ryan Castrejon MD Primary Care Provider [phone] Reynaldo Flannery DO Unavailable [phone] Guanakito Holland MD Unavailable [phone] Reason for Referral * Diagnostic Imaging (Routine) - Closed Specialty Diagnoses / Procedures Referred By Danita moctezuma Referred To Contact Diagnoses Visit for screening mammogram Essential hypertension Mixed hyperlipidemia Procedures Screening Mammogram Bilateral W Ryan Martinez MD Phone: tel: fax: [address] [address] Referral ID Status Reason Start Date Expiration Date Visits Re quested Visits Authorized [id number] Closed 01/31/2020 03/01/2021 1 1 CARE CENTER DIRECTOR Reason for Visit * Diagnostic Imaging (Routine) - Closed Specialty Diagnoses / Procedures Referred By Contrhina t Referred To Contact Diagnoses Visit for screening mammogram Essential hypertension Mixed hyperlipidemia Procedures Screening Mammogram Bilateral W Ryan Martinez MD Phone: tel: fax: [facility] [address] [place] [address] Referral ID Status Reason Start Date Expiration Date Visits Re quested Visits Authorized [id number] Closed 01/31/2020 03/01/2021 1 1 Encounter Details Date Type Department Care Team (Latest Contact Info) Description 04/06/2020 12:53 PM DAY CARE CENTER DIRECTOR - 04/06/2020 11:59 PM DAY CARE CENTER DIRECTOR Hospital Encounter [facility] [address] [place] [address] Ryan Castrejon MD [address] [facility] [address] [address] Visit for screening mammogram; Essential hypertension; Mixed hyperlipidemia Discharge Disposition: Discharge to home or self [...] and Family Once a week 03/05/2019 Attends Jain Services Not on file 03/05 Active Member [...] Legal Sex Female 11:18 AM DAY CARE CENTER DIRECTOR Gender Identity Female 10/09/2022 9:08 AM CDT Sexual Orientation Choose not to disclose 2022 9:08 AM CDT documented as of this encounter Medications at Time of Discharge cholecalciferol (VITAMIN D-3) 2,000 unit tabletIndications :Prevention of Vitamin D Deficiency take 1 tablet by oral route every day 90 3 12/06/2015 cyanocobalamin (Vitamin B-12) 100 mcg tabletIndications :Prevention of Vitamin B12 Deficiency Take 10 tablets (1,000 mcg total) by mouth daily ALPRAZolam (XANAX) 0.25 mg tablet Take 1 tablet (0.25 mg total) by mouth 2 (two) times a day as needed for anxiety 60 tablet 1 09/23/2018 3 apixaban (ELIQUIS) 5 mg tablet take 1 tablet by oral route 2 times every day 0 0 01/24/2016 3 artificial tears (SYSTANE) 0.3 % gel Apply 1 drop to both eyes 4 (four) times a day as needed 3 ascorbic acid (VITAMIN C) 1,000 mg tablet Take 2 tablets (2,000 mg total) by mouth daily 3 Entresto 24-26 mg tablet 01/11/2020 3 fexofenadine (WALESKA) 180 mg tablet Take 1 tablet (180 mg total) by mouth daily 3 fluticasone propionate (FLONASE) 50 mcg/actuation nasal spray Administer 2 sprays into each nostril daily 16 g 3 07/23/2019 3 furosemide (LASIX) 20 mg tablet Take 20 mg by mouth daily 12/30/2019 2 Lactobacillus acidophilus 10 billion cell capsule Take 1 capsule by mouth daily 3 MAGNESIUM ORAL Take 2 capsules by mouth daily 3 ondansetron (ZOFRAN) 4 mg tablet 12/29/2019 3 spironolactone (ALDACTONE) 25 mg tablet 07/01/2019 2 turmeric root extract 500 mg capsule Take 1 capsule by mouth daily 3 zinc 50 mg tablet Take 50 mg by mouth daily 3 documented as of this encounter Discharge Disposition Disposition Code Departure Means Destination Discharge to home or self care documented in this encounter Miscellaneous Notes * Result Encounter Note - Ryan Castrejon MD - 04/06/2020 4:39 PM CST Okay to leave a message mammogram normal repeat 1 year CARE CENTER DIRECTOR documented in this encounter Plan of Treatment Not on file documented as of this encounter Procedures Procedure Name Priority Date/Time Associated Diagnosis Comments SCREENING MAMMOGRAM BILATERAL W OSCAR Schedule Routine, Read Routine (OP Routine) 04/06/2020 1:21 PM DAY CARE CENTER DIRECTOR Visit for screening mammogram Essential hypertension Mixed hyperlipidemia documented in this encounter Results * Screening Mammogram Bilateral W Oscar (04/06/2020 1:21 PM DAY CARE CENTER DIRECTOR) Anatomical Region Laterality Modality Breast Bilateral Mammography 04/06/2020 2:09 PM DAY CARE CENTER DIRECTOR Impressions 04/06/2020 3:13 PM DAY CARE CENTER DIRECTOR There is no mammographic evidence of malignancy. A 1 year screening mammogram is recommended. BI-RADS: 2 - Benign. The patient will be entered into a reminder system with a target due date of 1 year for her next mammogram. Electronically signed by: Micaela Jang MD Narrative 04/06/2020 3:13 PM DAY CARE CENTER DIRECTOR EXAMINATION: SCREENING MAMMOGRAM BILATERAL W OSCAR ORDERING [...] MD IMG MAMMO PROCEDURES Final Res ult documented in this encounter Visit Diagnoses Diagnosis Visit for screening mammogram Essential hypertension Unspecified essential hypertension Mixed hyperlipidemia documented in this encounter Care Teams Automotive Fuel Injection Servicer Relationship Specialty Start Date End Date Ryan Castrejon MD PCP - General 06/21/16 07/17/22 Reynaldo Flannery DO Consulting Physician Cardiology 09/26/17 Guanakito Holland MD Consulting Physician Cardiovascular Disease 07/29/18 documented as of this encounter
--- OUTSIDE RECORDS SUMMARY | 2024-04-11 06:37 | XMS_ITS | Encounter Summary ---
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) MCA OCCLUSION: THROMBECTOMY Procedures NA Referral ID Status Reason Start Date Expiration Date Visits Re quested Visits Authorized [id number] 1 1 Encounter Details Date Type Department Care Team (Late st Contact Info) Description 08/03/2022 4:48 PM CDT Anesthesia Event [facility] Neuro Interventional Radiology [address] [place] [address] Rosa M Clark MD [address] [place] [address] Prisca Orr MD [address] [place] [address] Anesthesia Record Procedure Summary Procedure Name Responsible Anesthesiologist Anesthesia Start Time Anesthesia Stop Time PERCUTANEOUS ARTERIAL THROMBECTOMY, INTRACRANIAL Rosa M Clark MD 08/03/22 1648 08/03/22 193 Events Date Time Event Comment 08/03/2022 1648 An Start 1648 An Start Data 165 An Induction The patient was reevaluated immediately before moderate or deep sedation use and before anesthesia induction. 165 An Intubation 165 Anesthesia Ready 1911 an stop data 1924 Handoff to RN I completed my handoff to the receiving nurse during which we: 1. Patient identified 2. Responsible provider identified 3. Pertinent medical history reviewed 4. Procedure type and surgical course discussed 5. Intraoperative anesthetic management and any significant issues discussed 6. Expectations and concerns for postop period discussed 7. Questions solicited from receiving nurse 8. Patient disposition at the time of handoff: ICU 1933 An Stop Meds Name Total lidocaine (cardiac) syringe 2 % 60 mg propofol 120 mg propofol 168.64 mg succinylcholine 60 mg phenylephrine 100 mcg/mL 300 mcg ondansetron PF (ZOFRAN) 2 mg/mL injectio n 4 mg phenylephrine infusion (100 mcg/mL) 3.99 mg LR 400 mL * Agents Name O2% N2O O2 Air Sevoflurane Inspired Sevoflurane * Blood No blood administrations on file. Lines, Drains, and Airways Type Details Placement Removal Peripheral IV Placement Date: 07/22 06/13; Placement Time: 1312; Existing LDA Placed by: EMS; Catheter Size: 18 G; Orientation: Anterior, Right; Location: Hand; Removal Date: 08/14/22; Removal Time: 0908/03/22 1312 by Tammi Diaz RN 08/14/22 09 by Ashleigh Potter RN Peripheral IV Placement Date: 07/22 06/13; Placement Time: 142; Catheter Size: 20 G; Orientation: Right; Location: Antecubital; Inserted by: BRAYAN Malave; Insertion Attempts: 1; Patient Tolerance: Tolerated well; Removal Date: 08/04/22; Removal Time: 199908/03/22 1428 by Adenike Bernard RN 08/04/221999 by Josue Mccracken RN Urethral Catheter Placement Date: 07/22 06/13; Placement Time: 1627; Type: Non-latex, Temperature probe; Balloon Size: 10 mL; Urine Returned: Yes; Removal Date: 08/06/22; Removal Time: 0554; Removal Reason: Per order 08/03/22 1627 by Rosita Hills RN 08/06/22 0554 by Luna Bhakta RN ETT Placement Date: 07/22 06/13; Placement Time: 1726 (created via procedure documentation); Mask Ventilation: 0; Technique: Video laryngoscopy; Type: ETT - single; Single Lumen Tube Size: 7 mm; Laryngoscope: Escobar; Blade Size: 3; Location: Oral; Insertion Attempts: 1; Placement Verification: Auscultation, Capnometry; Removal Date: 08/04/22; Removal Time: 1017 08/03/22 1726 by Prisca Orr MD 08/04/22 1017 by Vernon Meléndez RRT Peripheral IV Placement Date: 07/22 06/13; Placement Time: 172 (created via procedure documentation); Catheter Size: 18 G; Orientation: Left; Location: Hand; Site Prep: Alcohol; Insertion Attempts: 1; Removal Date: 08/10/22; Removal Time: 1235; Removal Reason: Other (Comment) (pain) 08/03/22 1726 by Prisca Orr MD 08/10/22 1235 by Russell Brooks RN Arterial Line Placement Date: 07/22 06/13; Placemnt Time: 1727 (created via procedure documentation); Size: 20 G; Orientation: Right; Location: Radial; Securement: Taped, Transparent dressing; Removal Date: 08/05/22; Removal Time: 1300 08/03/22 1727 by Prisca Orr MD 08/05/22 1300 by Flo Bassett RN documented in this encounter Social History Tobacco Use Types Packs/Day Years [...] and Family Once a week 03/05/2019 Attends [employer] Services Not on file 03/05 Active Member [...] on file 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 Gender Identity Female 10/09/2022 9:08 AM CDT Sexual Orientation Choose not to disclose 2022 9:08 AM CDT documented as of this encounter OR Notes * Anesthesia Postprocedure Evaluation - Veronica Beckham CRNA - 08/03/2022 7:33 PM CDT Patient: Abena Giron Procedure Summary Date: 08/03/22 Room / Location: [facility] Neuro Interventional Radiology Anesthesia Start: 1647 Anesthesia Stop: Procedure: PERCUTANEOUS ARTERIAL THROMBECTOMY, INTRACRANIAL Diagnosis: Scheduled Providers: Responsible Provider: Rosa M Clark MD Anesthesia Type: general ASA Status: 3 - Emergent Anesthesia Type: general Last vitals BP 100/57 Pulse 69 Temp 36.3 ??C (97.4 ??F) (Axillary) Resp 20 SpO2 94% Anesthesia Post Evaluation Patient location during evaluation: ICU Patient participation: complete - patient cannot participate Post-procedure mental status: sedated. Pain score: unable to evaluate Pain management: adequate Airway patency: adequate Evidence of recall: unable to evaluate Cardiovascular status: hemodynamically stable Respiratory status: ETT, intubated and spontaneous ventilation Hydration status: acceptable Pt is: normothermic Nausea/Vomiting status: none Comments: Sign out to ICU team. All questions answered. No notable events documented. Cosigned by Rosa M Clark MD at 08/03/2022 7:47 PM CDT * Anesthesia Preprocedure Evaluation - Rosa M Clark MD - 08/03/2022 6:12 PM CDT Images from the original note were not included. Anesthesia Evaluation Abena Giron is a 82 y.o. female * No procedures listed * * No Diagnosis Codes entered * Patient Active Problem List Diagnosis ??? Hypertension ??? Osteoarthritis ??? Hyperlipidemia ??? Coronary artery disease involving [place] coronary artery of [place] heart ??? Paroxysmal atrial fibrillation (CMS/HCC) (HCC) ??? Chronic GERD ??? Anxiety ??? Abdominal aortic aneurysm (AAA) without rupture (HCC) ??? B12 deficiency ??? Sick sinus syndrome (CMS/HCC) (HCC) ??? GENNY (obstructive sleep apnea) ??? History of coronary artery stent placement ??? Cardiac pacemaker in situ Past Medical History: Diagnosis Date ??? Adiposity obesity ??? Aortic aneurysm (HCC) Pt states found by [...] stent 2013 [place]/amh ??? OTHER SURGICAL HISTORY 2016 a.fib: loop recorder implanted ??? OTHER SURGICAL HISTORY 2016 Atrial Fibrillation: Cardiovascular Intervention (ablation) ??? SKIN BIOPSY OB History 6 Para 6 Term 6 AB Living SAB IAB Ectopic Multiple Live Births Allergies Allergen Reactions ??? Phenobarbital Hallucinations ??? [...] comments) severe heart pain ??? Diltiazem Itching Taking? Last Dose Start Date End Date Provider ALPRAZolam (XANAX) 0.25 mg tablet -- 09/23/18 -- Ronald Castrejon MD Take 1 tablet (0.25 mg total) by mouth 2 (two) times a day as needed for anxiety Patient not taking: Reported on 08/28/2021 apixaban (ELIQUIS) 5 mg tablet -- 01/24/16 -- Kandy Eason FNP take 1 tablet by oral route 2 times every day artificial tears (SYSTANE) 0.3 % gel -- -- -- Rosalinda Joseph MD ascorbic acid (VITAMIN C) 1,000 mg tablet -- -- -- Rosalinda Joseph MD cholecalciferol (VITAMIN D-3) 2,000 unit tablet -- 12/06/15 -- Kandy Eason FNP take 1 tablet by oral route every day cyanocobalamin (Vitamin B-12) 100 mcg tablet -- -- -- Rosalinda Joseph MD Entresto 24-26 mg tablet -- 01/11/20 -- Rosalinda Joseph MD fexofenadine (WALESKA) 180 mg tablet -- -- -- Provider, MD Rosalinda fluticasone propionate (FLONASE) 50 mcg/actuation nasal spray () -- 07/23/19 08/28/21 Princess Rios NP Administer 2 sprays into each nostril daily furosemide (LASIX) 20 mg tablet -- 09/19/21 -- Mannie Hernandez MD Take 1 tablet (20 mg total) by mouth daily spironolactone (ALDACTONE) 25 mg tablet -- 09/19/21 -- Mannie Hernandez MD Take 1 tablet (25 mg total) by mouth daily Current Facility-Administered Medications: ??? heparin in 0.9% sodium chloride 1,000 units/500 mL (2 unit/mL) infusion (premix), , , Continuous PRN, Last Rate: 50 mL/hr at 08/03/22 175, 50 mL/hr at 08/03/22 175 Current Outpatient Medications: ??? ALPRAZolam (XANAX) 0.25 mg tablet ??? apixaban (ELIQUIS) 5 mg tablet ??? artificial tears (SYSTANE) 0.3 % gel ??? ascorbic acid (VITAMIN C) 1,000 mg tablet ??? cholecalciferol (VITAMIN D-3) 2,000 unit tablet ??? cyanocobalamin (Vitamin B-12) 100 mcg tablet ??? Entresto 24-26 mg tablet ??? fexofenadine (WALESKA) 180 mg tablet ??? fluticasone propionate (FLONASE) 50 mcg/actuation nasal spray ??? furosemide (LASIX) 20 mg tablet ??? spironolactone (ALDACTONE) 25 mg tablet Facility-Administered Medications Ordered in Other Encounters: ??? Lactated Ringer's (LR) infusion, , intravenous, Continuous PRN, New Bag at 08/03/22 1648 ??? lidocaine (cardiac) (XYLOCAINE) preservative free injection, , intravenous, PRN, 60 mg at 08/03/22 1655 ??? phenylephrine (XAVIER-SYNEPHRINE) 1 mg/10 mL (100 mcg/mL) in sodium chloride 0.9% (premix), , intravenous, PRN, 100 mcg at 08/03/221656 ??? phenylephrine (XAVIER-SYNEPHRINE) 5 mg/50 mL (100 mcg/mL) in sodium chloride 0.9% (premix), , intravenous, Continuous PRN, Last Rate: 16.656 mL/hr at 08/03/221757, 0.4 mcg/kg/min at 08/03/221757 ??? propofoL (DIPRIVAN) 10 mg/mL IV, , intravenous, PRN, 120 mg at 08/03/221654 ??? succinylcholine (ANECTINE) injection, , intravenous, PRN, 60 mg at 08/03/221654 Social History Tobacco Use Smoking Status Former ??? Types: Cigarettes ??? Quit date: 1974 ??? Years since quittin.3 Smokeless Tobacco Never Vaping Use Vaping Status Never Used Alcohol Use: Not on file Substance and Sexual Activity Drug Use No Family History Problem Relation Age of Onset [...] Hypertension Brother Hypertension; ??? Breast cancer Child Vitals: 08/03/22 1635 08/03/22 1636 08/03/22 1637 BP: 100/57 Pulse: 69 69 69 Resp: 21 22 20 Temp: SpO2: 95% 94% 94% PT: 08/03/2022: 13.8 sec (H) INR: 08/03/2022: 1.3 (H) APTT: 08/03/2022: 28 sec Hgb A1C: No results found for requested labs within last 30 days. CBC RBC: 08/03/2022: 3.06 M/cumm (L) RDW: No results found for requested labs within last 30 days. MCHC: 08/03/2022: 32.1 g/dL (L) MCH: 08/03/2022: 31.4 pg MCV: 08/03/2022: 97.7 fL (H) Hct: 08/03/2022: 43.0 % Hgb: 08/03/2022: 14.2 g/dL WBC: 08/03/2022: 7.9 K/cumm MPV: 08/03/2022: 10.4 fL Platelets: 08/03/2022: 116 K/cumm (L) RDW CV: 08/03/2022: 14.0 % RDW Sd: 08/03/2022: 49.4 fL (H) BMP Glucose: 08/03/2022: 160 mg/dL Calcium: 08/03/2022: 5.2 mg/dL (Critical) Sodium: 08/03/2022: 148 mmol/L (H) Potassium: 08/03/2022: 2.9 mmol/L (L) CO2: 08/03/2022: 18 mmol/L (L) Chloride: 08/03/2022: 124 mmol/L (H) BUN: 08/03/2022: 8 mg/dL Creatinine: 08/03/2022: 0.50 mg/dL (L) DOS Physical Exam Medical history, medications, and allergies reviewed. Attestation: This PAT evaluation 08/03/2022. Airway Exam: Mallampati: unable to eval Cervical ROM: unable to evaluate Cardiovascular Exam: Rate: regular Rhythm: regular Pulmonary Exam: LCTA, bilat Current state: Patient's current state is confused and nonverbal. Anesthesia Plan ASA 3- emergent My patient is approved for the Anesthesia Controlled Medication protocol when under care of a APPARATUS REPAIR MECHANIC Planned anesthesia: General Postoperative Plan: Patient's planned disposition post procedure is ICU. Informed Consent: Discussed plan with APPARATUS REPAIR MECHANIC and resident. Anesthesia plan and risks discussed with son and sibling. Consent and Attending signature: I and/or my designee have discussed the anesthesia plan, benefits, possible alternatives, parental presence at time of induction (if indicated), and clinically relevant risks that may include dental injury, unintentional awareness, and/or other complications. The patient and/or parent/legal guardian understand, and agree to proceed. All questions answered. * Anesthesia Procedure Notes - Prisca Orr MD - 08/03/2022 5:26 PM CDT Associated Order(s): Arterial Line Arterial Line Patient location: OR Indication: continuous blood pressure monitoring and blood sampling needed Staff: Supervising provider: Rosa M Clark MD Placed by: Resident: Jackson Martinez MD Procedure prep: Prep solution: chlorhexadine/alcohol Prep: provider hat/mask and sterile gloves Skin infiltrated with lidocaine 1%: yes Arterial line: Catheter size: 20 gauge Catheter length: 1 and 3/4 inch Catheter type: wire-guided catheter Laterality: right Site: radial artery Line secured: tape and Tegaderm Results: good waveform and good blood return Number of attempts: 2 Assessment: Events: patient tolerated procedure well with no complications Additional comments: First attempt by prisca orr MD, successful attempt by jackson martinez MD * Anesthesia Procedure Notes - Prisca Orr MD - 08/03/2022 5:26 PM CDT Associated Order(s): Peripheral IV Catheter Peripheral IV Catheter Patient location: OR Staff: Supervising provider: Rosa M Clark MD Placed by: Resident: Jackson Martinez MD Preprocedure prep: Prep solution: alcohol PPE: gloves PIV line: Laterality: left Site: hand Catheter size: 18 g Technique: anatomical landmarks Procedure details: good blood return Number of attempts: 1 * Anesthesia Procedure Notes - Prisca Orr MD - 08/03/2022 5:25 PM CDT Associated Order(s): Airway Airway Patient location: OR Urgency: elective Indications for airway management: anesthesia Difficult airway: no Staff: Supervising provider: Rosa M Clark MD Placed by: Resident: Prisca Orr MD Emergent airway documentation: Risks and benefits discussed: yes Consent obtained: yes Consent given by: patient Airway prep: Preoxygenated: yes Patient position: sniffing Mask difficulty assessment: 0 - not attempted Spontaneous ventilation during airway: absent Sedation level during airway: GA Final airway details: Final airway type: endotracheal airway Tube type: ETT ETT size: 7.0 mm Technique used for successful ETT placement: video laryngoscopy Devices/Methods used in placement: stylet Insertion site: oral Blade type: Escobar Video blade type: Fong Blade size: 3 Cormack-Lehane (video): grade I - full view of glottis ETT to gums: 21 cm Placement verified by: auscultation and CO2 detection Airway secured with: silk tape Number of attempts: 1 documented in this encounter Plan of Treatment Not on file documented as of this encounter Procedures Procedure Name Priority Date/Time Associated Diagnosis Comments ANESTHESIA ARTERIAL LINE PLACEMENT Routine 08/03/2022 5:26 PM CDT PERIPHERAL LINE Routine 08/03/2022 5:26 PM CDT ANESTHESIA INTUBATION Routine 08/03/2022 5:25 PM CDT documented in this encounter Results * Arterial Line (08/03/2022 5:26 PM CDT) Narrative Prisca Orr MD - 08/03/2022 5:26 PM CDT Prisca Orr MD ? 08/03/2022 ??5:41 PM Arterial Line Patient location: OR Indication: continuous blood pressure monitoring and blood sampling needed Staff: Supervising provider: Rosa M Clark MD Placed by: Resident: Jackson Martinez MD Procedure prep: Prep solution: chlorhexadine/alcohol Prep: provider hat/mask and sterile gloves Skin infiltrated with lidocaine 1%: yes Arterial line: Catheter size: 20 gauge Catheter length: 1 and 3/4 inch Catheter type: wire-guided catheter Laterality: right Site: radial artery Line secured: tape and Tegaderm Results: good waveform and good blood return Number of attempts: 2 Assessment: Events: patient tolerated procedure well with no complications Additional comments: First attempt by prisca orr MD, successful attempt by jackson martinez MD us Rosa M Clark MD ANESTHESIA ORDERABLES Edited R esult - Final * Peripheral IV Catheter (08/03/2022 5:26 PM CDT) Narrative Prisca Orr MD - 08/03/2022 5:26 PM CDT Prisca Orr MD ? 08/03/2022 ??5:38 PM Peripheral IV Catheter Patient location: OR Staff: Supervising provider: Rosa M Clark MD Placed by: Resident: Jackson Martinez MD Preprocedure prep: Prep solution: alcohol PPE: gloves PIV line: Laterality: left Site: hand Catheter size: 18 g Technique: anatomical landmarks Procedure details: good blood return Number of attempts: 1 us Rosa M Clark MD ANESTHESIA ORDERABLES Edited R esult - Final * Airway (08/03/2022 5:25 PM CDT) Narrative Prisca Orr MD - 08/03/2022 5:25 PM CDT Prisca Orr MD ? 08/03/2022 ??5:26 PM Airway Patient location: OR Urgency: elective Indications for airway management: anesthesia Difficult airway: no Staff: Supervising provider: Rosa M Clark MD Placed by: Resident: Prisca Orr MD Emergent airway documentation: Risks and benefits discussed: yes Consent obtained: yes Consent given by: patient Airway prep: Preoxygenated: yes Patient position: sniffing Mask difficulty assessment: 0 - not attempted Spontaneous ventilation during airway: absent Sedation level during airway: GA Final airway details: Final airway type: endotracheal airway Tube type: ETT ETT size: 7.0 mm Technique used for successful ETT placement: video laryngoscopy Devices/Methods used in placement: stylet Insertion site: oral Blade type: Escobar Video blade type: Fong Blade size: 3 Cormack-Lehane (video): grade I - full view of glottis ETT to gums: 21 cm Placement verified by: auscultation and CO2 detection Airway secured with: silk tape Number of attempts: 1 us Rosa M Clark MD ANESTHESIA ORDERABLES Final Re sult documented in this encounter Visit Diagnoses Not on filedocumented in this encounter Administered Medications Inactive Administered Medications - up to 3 most recent administrations Medication Order MAR Action Action Date Dose Rate Site Lactated Ringer's (LR) infusion intravenous, Continuous PRN, Starting on 08/03/22 at 1648, Anesthesia Intra-op New Bag 08/03/2022 4:48 PM CDT lidocaine (cardiac) (XYLOCAINE) preservative free injection intravenous, As needed, Starting on 08/03/22 at 1655, Anesthesia Intra-op, Indications: Ventricular ArrhythmiasIndications:Ventricula r Arrhythmias Given 08/03/2022 4:55 PM CDT 60 mg ondansetron (ZOFRAN) injection intravenous, Administer over 2 Minutes, As needed, Starting on 08/03/22 at 1858, Anesthesia Intra-op Given 08/03/2022 6:58 PM CDT 4 mg phenylephrine (XAVEIR-SYNEPHRINE) 1 mg/10 mL (100 mcg/mL) in sodium chloride 0.9% (premix) intravenous, As needed, Starting on 08/03/22 at 1655, Anesthesia Intra-op Given 08/03/2022 4:57 PM CDT 100 mcg Given 08/03/2022 4:55 PM CDT 200 mcg phenylephrine (XAVIER-SYNEPHRINE) 5 mg/50 mL (100 mcg/mL) in sodium chloride 0.9% (premix) intravenous, Continuous PRN, Starting on 08/03/22 at 1655, Anesthesia Intra-op Rate/Dose Change 08/03/2022 5:58 PM CDT 0.4 mcg/kg/min 16.656 mL/hr Rate/Dose Change 08/03/2022 5:38 PM CDT 0.3 mcg/kg/min 12. 492 mL/hr Rate/Dose Change 08/03/2022 5:28 PM CDT 0.5 mcg/kg/min 20. 82 mL/hr propofoL (DIPRIVAN) 10 mg/mL IV intravenous, As needed, Starting on 08/03/22 at 1655, Anesthesia Intra-op Given 08/03/2022 4:55 PM CDT 120 mg propofoL (DIPRIVAN) 10 mg/mL IV intravenous, Continuous PRN, Starting on 08/03/22 at 1848, Anesthesia Intra-op Rate/Dose Change 08/03/2022 7:09 PM CDT 60 mcg/kg/min 24.984 mL/hr Rate/Dose Change 08/03/2022 7:00 PM CDT 50 mcg/kg/min 20.8 2 mL/hr New Bag 08/03/2022 6:48 PM CDT 40 mcg/kg/min 16.656 mL/ hr succinylcholine (ANECTINE) injection intravenous, As needed, Starting on 08/03/22 at 1655, Anesthesia Intra-op Given 08/03/2022 4:55 PM CDT 60 mg documented in this encounter Orders Medications Ordered That Flaco ht Not Have Been Administered Count Last Ordered Date First Ordered Date ondansetron (ZOFRAN) injection 1 08/03/2022 documented in this encounter Care Teams Residential Program Coordinator Relationship Specialty Start Date End Date Jaleel Mcgovern MD PCP - General Family Practice 07/18/22 Reynaldo Flannery DO Consulting Physician Cardiology 09/26/17 Guanakito Holland MD Consulting Physician Cardiovascular Disease 07/29/18 documented as of this encounter
--- OUTSIDE RECORDS SUMMARY | 2024-04-11 06:37 | XMS_ITS | Encounter Summary ---
Author Organization [facility] Address [address] [place] [address] Care Team Providers Care Supervisor [employer] Name Role Phone Ronald Castrejon MD Primary Care Provider [phone] Reynaldo Flannery DO Unavailable [phone] Guanakito Holland MD Unavailable [phone] Reason for Visit * Cardiology (Routine) - Closed Specialty Diagnoses / Procedures Referred By Contac t Referred To Contact Diagnoses Paroxysmal atrial fibrillation (CMS/HCC) (HCC) Sick sinus syndrome (CMS/HCC) (HCC) Cardiac pacemaker in situ Procedures DEVICE CHECK - REMOTE Mannie Hernandez MD [address] [facility] [address] [place] [id number] Phone: tel: fax: [facility] Referral ID Status Reason Start Date Expiration Date Visits Re quested Visits Authorized [id number] Closed 09/19/2021 03/21/2023 1 1 Encounter Details Date Type Department Care Team (Latest Contact Info) Description 03/26/2022 7:45 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 Gender Identity Female 10/09/2022 9:08 AM CDT Sexual Orientation Choose not to disclose 2022 9:08 AM CDT documented as of this encounter Plan of Treatment Not on file documented as of this encounter Procedures Procedure Name Priority Date/Time Associated Diagnosis Comments DEVICE CHECK - REMOTE Routine 03/26/2022 10:15 AM GAS LEAK INSPECTOR HELPER Paroxysmal atrial fibrillation (CMS/HCC) (HCC) Sick sinus syndrome (CMS/HCC) (HCC) Cardiac pacemaker in situ documented in this encounter Results * DEVICE CHECK - REMOTE (03/26/2022 10:15 AM GAS LEAK INSPECTOR HELPER) Anatomical Region Laterality Modality Other Narrative 06/19/2022 9:07 AM CDT Biotronik Dual Pacemaker. Dx; SSS, Afib. DOI 07/29/2018-Dr Holland. RA Lead replaced 09/14/18. AV Node Ablation 12/2018. Routine Pacemaker remote. Normal device function. Battery function-Ok, 60% remaining battery longevity to LEANA. Appropriate lead measurements noted. Presenting rhythm-Afib Vpaced. AP-1%, MUSIC GRAPHER-90%. AF burden 100%. No Ventricular high rate episodes noted. Medications; Eliquis, Entresto, Lasix, Aldactone. See scanned report. Office pacemaker f/u 10/02/2022. Biotronik remote f/u 07/02/2022. Merry Cavanaugh RN Mannie Hernandez MD [facility] PROC EDURES Final Result documented in this encounter Visit Diagnoses Diagnosis Paroxysmal atrial fibrillation (CMS/HCC) (HCC) Atrial fibrillation Sick sinus syndrome (CMS/HCC) (HCC) Sinoatrial node dysfunction Cardiac pacemaker in situ documented in this encounter Care Teams Supervisor [employer] Shop Relationship Specialty Start Date End Date Ronald Castrejon MD PCP - General 06/21/16 07/17/22 Reynaldo Flannery DO Consulting Physician Cardiology 09/26/17 Guanakito Holland MD Consulting Physician Cardiovascular Disease 07/29/18 documented as of this encounter
--- OUTSIDE RECORDS SUMMARY | 2024-04-11 06:38 | XMS_ITS | Encounter Summary ---
Author Organization [facility] Facility Care Team Providers Care Auto Washer Name Role Phone Ronald Castrejon MD Primary Care Provider [phone] Reynaldo Flannery DO Unavailable [phone] Guanakito Holland MD Unavailable [phone] Annel Curiel RN Unavailable [phone] Encounter Details Date Type Department Care Team (Latest Contact Info) Description 01/06/2019 Travel Social History Tobacco Use Types Packs/Day Years Used Date Smoking Tobacco: Former Cigarettes Q uit: 1975 Smokeless Tobacco: Never Alcohol Use Standard Drinks/Week Comments No 0 (1 standard drink = 0.6 oz pur e alcohol) PHQ-2 Answer Date Recorded PHQ-2 Score 0 12/24/2018 Comments No Sex and Gender Information Value Date Recorded Sex Assigned at Not on file Legal Sex Female 11:18 AM OPINION POLLS SURVEY WORKER Gender Identity Female 10/09/2022 9:08 AM CDT Sexual Orientation Choose not to disclose 2022 9:08 AM CDT documented as of this encounter Plan of Treatment Not on file documented as of this encounter Visit Diagnoses Not on filedocumented in this encounter Care Teams Auto Washer Relationship Specialty Start Date End Date Ronald Castrejon MD PCP - General 06/21/16 07/17/22 Reynaldo Flannery DO Consulting Physician Cardiology 09/26/17 Guanakito Holland MD Consulting Physician Cardiovascular Disease 07/29/18 Annel Curiel, BRAYAN [address] [place] [address] Auto Body Customizer 11/18/18 05/16/19 documented as of this encounter
--- OUTSIDE RECORDS SUMMARY | 2024-04-11 06:38 | XMS_ITS | Encounter Summary ---
Author Organization [facility] Address [address] [place] [address] Care Team Providers Care Soft Work Wrapper Examiner Name Role Phone Ronald Castrejon MD Primary Care Provider [phone] Reynaldo Flannery DO Unavailable [phone] Guanakito Holland MD Unavailable [phone] Annel Curiel RN Unavailable [phone] Reason for Visit * Reason Comments Abdominal Pain over 2 weeks Nausea Fatigue Encounter Details Date Type Department Care Team (Late st Contact Info) Description 02/15/2019 11:30 AM PSYCHODRAMATIST Office Visit [facility] [address] [facility] [address] [place] [address] Ronald Castrejon MD [address] [place] [address] [address] [place] [address] Generalized abdominal pain (Primary Dx) Social History Tobacco Use Types [...] on file Legal Sex Female 11:18 AM PSYCHODRAMATIST Gender Identity Female 10/09/2022 9:08 AM CDT Sexual Orientation Choose not to disclose 2022 9:08 AM CDT documented as of this encounter Last Filed Vital Signs Vital Sign Reading Time Taken Comments Blood Pressure 118/90 02/15/2019 11:21 AM PSYCHODRAMATIST Pulse 70 02/15/2019 11:21 AM PSYCHODRAMATIST Temperature 36.9 ??C (98.5 ??F) 02/15/2019 1 1:21 AM PSYCHODRAMATIST Respiratory Rate 18 02/15/2019 11:2 1 AM PSYCHODRAMATIST Oxygen Saturation - - Inhaled Oxygen Concentration - - Weight 76.5 kg (168 lb 11.2 oz) 019 11:21 AM PSYCHODRAMATIST Height 154.9 cm (5' 1 ) 02/15/2019 11:2 1 AM PSYCHODRAMATIST Body Mass Index 31.88 02/15/2019 11:21 AM PSYCHODRAMATIST documented in this encounter Ordered Prescriptions Prescription Sig Dispense Quantity Refills Last Filled Start Date End Date famotidine (PEPCID) 40 mg tablet Take 1 tablet (40 mg total) by mouth daily 90 tablet 3 02/15/2019 01/31/2020 documented in this encounter Progress Notes * Ronald Castrejon MD - 02/15/2019 11:30 AM CST Subjective/Objective Patient ID: Abean Giron is a 78 y.o. female. Chief Complaint Abdominal Pain (over 2 weeks ); Nausea; and Fatigue HPI 78-year-old female seen today with 3 weeks worth of abdominal discomfort nausea fatigue no vomitingno diarrhea stools are loose but no melena no hematochezia no hematemesis she had a cardiac [place] done end of November 2018 has some quite a bit of reflux right after that in was total was probably due to procedure they put on some Prevacid she took the for couple weeks her reflux seem to get better but for the past 3 weeks she has had persistent nausea abdominal discomfort tenderness she is having bowel movements out difficulty no hematemesis no emesis she states she does not have much of appetite She does have a history of cholecystectomy and had a ERCP with Dr. Edmondson in [facility] October 2017 however she states the pain discomfort she is having now is not similar to what she had back then Review of Systems Vitals: 02/15/19 1121 BP: 118/90 Pulse: 70 Resp: 18 Temp: 36.9 ??C (98.5 ??F) TempSrc: Oral Weight: 76.5 kg (168 lb 11.2 oz) Height: 154.9 cm (5' 1 ) Physical Exam Patient appears no distress the ears her unremarkable both back membranes look normal oral cavity is unremarkable neck is supple no adenopathy thyromegaly neck masses lungs are clear no rales rhonchior wheezes cardiovascular regular the abdomen soft tender in the all 4 quadrants but no rebound bowel sounds are normal extremities no edema no cords gait normal Assessment/Plan Diagnoses and all orders for this visit: Generalized abdominal pain (Primary) Other orders - famotidine (PEPCID) 40 mg tablet; Take 1 tablet (40 mg total) by mouth daily Generalized abdominal pain laboratory workup today CT scan of the abdomen pelvis this week will have her take her Prevacid in the morning Pepcid in the evening see back in 1 week ER evaluation if worsening changes symptoms let us know immediately Side effects, risks, interactions reviewed with patient. Indications for testing discussed. Any further problems to contact us. She was told what to look out for and verbalized understanding. The patient was given the opportunity to have all questions answered today and was in agreement with the plan of care. HODRAMATIST documented in this encounter Plan of Treatment Not on file documented as of this encounter Visit Diagnoses Diagnosis Generalized abdominal pain- Primary Abdominal pain, generalized documented in this encounter Care Teams Soft Work Wrapper Examiner Relationship Specialty Start Date End Date Ronald Castrejon MD PCP - General 06/21/16 07/17/22 Reynaldo Flannery DO Consulting Physician Cardiology 09/26/17 Guanakito Holland MD Consulting Physician Cardiovascular Disease 07/29/18 Annel Curiel, RN [address] [facility] [address] [place] [address] Sheet Metal Worker Supervisor 11/18/18 05/16/19 documented as of this encounter
--- OUTSIDE RECORDS SUMMARY | 2024-04-11 06:38 | XMS_ITS | Encounter Summary ---
Author Organization [facility] Address [address] [place] [address] Care Team Providers Care Environmental Monitoring Technician Name Role Phone Ronald Castrejon MD Primary Care Provider [phone] Reynaldo Flannery DO Unavailable [phone] Guanakito Holland MD Unavailable [phone] Annel Curiel RN Unavailable [phone] Reason for Referral * (Routine) - Closed Specialty Diagnoses / Procedures Referred By Contac t Referred To Contact Procedures Transthoracic Echo Complete W Doppler/CF [facility] Health Information Management [address] [place] [id number] Phone: tel: fax: Referral ID Status Reason Start Date Expiration Date Visits Re quested Visits Authorized [id number] Closed 04/16/2019 10/25/2020 1 1 S PROMOTION OFFICER Encounter Details Date Type Department Care Team (Late st Contact Info) Description 04/14/2019 Orders Only [facility] Health Information Management [address] [place] [id number] Ronald Castrejon MD [address] [place] [address] [address] [place] [address] Social History Tobacco Use Types Packs/Day Years [...] and Family Once a week 03/05/2019 Attends Holiness Services Not on file 03/05 Active Member of Clubs or Organizations Not on f ile 03/05/2019 Attends Club or Organization Meetings Not on anthony e 03/05/2019 Marital Status 03/05/2019 Overall Financial Resource Strain (CARDIA) Answe r Date Recorded Difficulty of Paying Living Expenses Not very [address] 03/05/2019 PHQ-2 Answer Date Recorded PHQ-2 Score 0 12/24/2018 Hunger Vital Sign Answer Date Recorded Worried [...] file Legal Sex Female 11:18 AM SALES PROMOTION OFFICER Gender Identity Female 10/09/2022 9:08 AM CDT Sexual Orientation Choose not to disclose 2022 9:08 AM CDT documented as of this encounter Plan of Treatment Not on file documented as of this encounter Procedures Procedure Name Priority Date/Time Associated Diagnosis Comments SCAN - LABS 04/14/2019 TRANSTHORACIC ECHO (TTE) COM PLETE W DOPPLER/CF Routine 04/14/2019 documented in this encounter Results * SCAN - LABS (04/14/2019) us Provider Scanning Final Result * Transthoracic Echo Complete W Doppler/CF (04/14/2019) Anatomical Region Laterality Modality Ultrasound us Historical Provider MD CV ECHO PROCEDURES Final Result documented in this encounter Visit Diagnoses Not on filedocumented in this encounter Care Teams Environmental Monitoring Technician Relationship Specialty Start Date End Date Ronald Castrejon MD PCP - General 06/21/16 07/17/22 Reynaldo Flannery DO Consulting Physician Cardiology 09/26/17 Guanakito Holland MD Consulting Physician Cardiovascular Disease 07/29/18 Annel Curiel, RN [address] [place] [address] Regional Operations Director 11/18/18 05/16/19 documented as of this encounter
--- OUTSIDE RECORDS SUMMARY | 2024-04-11 06:38 | XMS_ITS | Encounter Summary ---
Author Organization 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 Gender Identity Female 10/09/2022 9:08 AM CDT Sexual Orientation Choose not to disclose 2022 9:08 AM CDT documented as of this encounter Plan of Treatment Not on file documented as of this encounter Visit Diagnoses Not on filedocumented in this encounter Care Teams Plastic Top Assembler Relationship Specialty Start Date End Date Ronald Castrejon MD PCP - General 06/21/16 07/17/22 Reynaldo Flannery DO Consulting Physician Cardiology 09/26/17 Guanakito Holland MD Consulting Physician Cardiovascular Disease 07/29/18 Annel Curiel, BRAYAN [address] [place] [address] Breaker Unit Assembler 11/18/18 05/16/19 documented as of this encounter
--- OUTSIDE RECORDS SUMMARY | 2024-04-11 06:38 | XMS_ITS | Encounter Summary ---
Author Organization [facility] Address [address] [facility] [address] [place] [address] Care Team Providers Care Medical Office Supervisor Name Role Phone Ronald Castrejon MD Primary Care Provider [phone] Reynaldo Flannery DO Unavailable [phone] Guanakito Holland MD Unavailable [phone] Encounter Details Date Type Department Care Team (Late st Contact Info) Description 10/11/2019 Orders Only [facility] [address] [facility] [address] [place] [address] Ronald Castrejon MD [address] [place] [address] [address] [place] [id number] Mixed hyperlipidemia (Primary Dx) Social History Tobacco Use Types [...] and Family Once a week 03/05/2019 Attends [employer] Services Not on file 03/05 Active Member [...] on file Legal Sex Female 11:18 AM BEAM DYER RECESSED VAT Gender Identity Female 10/09/2022 9:08 AM CDT Sexual Orientation Choose not to disclose 2022 9:08 AM CDT documented as of this encounter Miscellaneous Notes * Addendum Note - Judy Ontiveros - 10/11/2019 9:13 AM CDTAddended by: JUDY ONTIVEROS on: 10/25/2019 08:14 AM Modules accepted: Orders documented in this encounter Plan of Treatment Scheduled Orders Name Type Priority Associated Diagnoses Orde r Schedule Lipid panel Lab Routine Mixed hyperlipidemia Expected: 12/13/2019 (Approximate), Expires: 10/10/2020 Urinalysis reflex to microscopic and culture Urine, clean voided Microbiology Routine Mixed hyperlipidemia Expected: 12/13/2019 (Approximate), Expires: 10/10/2020 CBC with auto differential Lab Routine Mixed hyperlipidemia Expected: 12/13/2019 (Approximate), Expires: 10/10/2020 Comprehensive metabolic panel Lab Routine Mixed hyperlipidemia Expected: 12/13/2019 (Approximate), Expires: 10/10/2020 documented as of this encounter Visit Diagnoses Diagnosis Mixed hyperlipidemia- Primary documented in this encounter Care Teams Medical Office Supervisor Relationship Specialty Start Date End Date Ronald Castrejon MD PCP - General 06/21/16 07/17/22 Reynaldo Flannery DO Consulting Physician Cardiology 09/26/17 Guanakito Holland MD Consulting Physician Cardiovascular Disease 07/29/18 documented as of this encounter
--- OUTSIDE RECORDS SUMMARY | 2024-04-11 06:38 | XMS_ITS | Encounter Summary ---
Author Organization [facility] Healthcare Address [address] [place] [address] Care Team Providers Care Patent Clerk Name Role Phone Ronald Castrejon MD Primary Care Provider [phone] Reynaldo Flannery DO Unavailable [phone] Guanakito Holland MD Unavailable [phone] Annel Curiel RN Unavailable [phone] Reason for Referral * Diagnostic Imaging (Routine) - Closed Specialty Diagnoses / Procedures Referred By Danita t Referred To Contact Radiology Diagnoses Abdominal pain, unspecified abdominal location Procedures CT Abdomen Pelvis W Contrast Ronald Castrejon MD Phone: tel: fax: [address] [address] Referral ID Status Reason Start Date Expiration Date Visits Re quested Visits Authorized [id number] Closed 02/15/2019 08/26/2020 1 1 L CNC OPERATOR Reason for Visit * Diagnostic Imaging (Routine) - Closed Specialty Diagnoses / Procedures [facility] To Contact Radiology Diagnoses Abdominal pain, unspecified abdominal location Procedures CT Abdomen Pelvis W Contrast Ronald Castrejon MD Phone: tel: fax: [facility] [address] [place] [address] Referral ID Status Reason Start Date Expiration Date Visits Re quested Visits Authorized [id number] Closed 02/15/2019 08/26/2020 1 1 Encounter Details Date Type Department Care Team (Latest Contact Info) Description 02/16/2019 4:10 PM METAL CNC OPERATOR - 02/16/2019 11:59 PM METAL CNC OPERATOR Hospital Encounter [facility] [id number] [place] [address] Ronald Castrejon MD [address] [place] [address] Abdominal pain, unspecified abdominal location Discharge Disposition: Discharge to home or self [...] on file Legal Sex Female 11:18 AM METAL CNC OPERATOR Gender Identity Female 10/09/2022 9:08 AM CDT Sexual Orientation Choose not to disclose 2022 9:08 AM CDT documented as of this encounter Medications at Time of Discharge cholecalciferol (VITAMIN D-3) 2,000 unit tabletIndication s:Prevention of Vitamin D Deficiency take 1 tablet by oral route every day 90 3 12/06/2015 cyanocobalamin (Vitamin B-12) 100 mcg tabletIndication s:Prevention of Vitamin B12 Deficiency Take 10 tablets (1,000 mcg total) by mouth daily ALPRAZolam (XANAX) 0.25 mg tablet Take 1 tablet (0.25 mg total) by mouth 2 (two) times a day as needed for anxiety 60 tablet 1 09/23/2018 08/12/2022 apixaban (ELIQUIS) 5 mg tablet take 1 tablet by oral route 2 times every day 0 0 01/24/2016 08/12/2022 artificial tears (SYSTANE) 0.3 % gel Apply 1 drop to both eyes 4 (four) times a day as needed 08/12/2022 ascorbic acid (VITAMIN C) 1,000 mg tablet Take 2 tablets (2,000 mg total) by mouth daily 08/12/2022 famotidine (PEPCID) 40 mg tablet Take 1 tablet (40 mg total) by mouth daily 90 tablet 3 02/15/2019 01/31/2020 loratadine (CLARITIN) 10 mg tablet Take 10 mg by mouth daily as needed 07/23/2019 MAGNESIUM ORAL Take 2 capsules by mouth daily 07/18/2022 documented as of this encounter Discharge Disposition Disposition Code Departure Means Destination Discharge to home or self care documented in this encounter Progress Notes * Ronald Castrejon MD - 02/16/2019 5:30 PM CST I talked to the patient on the telephone this morning at 6:[address] scan late afternoon revealed diverticulitis she is having no fever chills abdominal pain is basically the same as has been for the past several days will prescribe Cipro and Flagyl side effects discussed with patient will start taking him this morning worsening ER evaluation continue clear liquid diet only for the time being the disease process of diverticulitis versus diverticulosis discussed with patient this morning L CNC OPERATOR documented in this encounter Plan of Treatment Not on file documented as of this encounter Procedures Procedure Name Priority Date/Time Associated Diagnosis Comments CT ABDOMEN PELVIS W CONTRAST Schedule Routine, Read Routine (OP Routine) 02/16/2019 5:13 PM METAL CNC OPERATOR Abdominal pain, unspecified abdominal location documented in this encounter Results * CT Abdomen Pelvis W Contrast (02/16/2019 5:13 PM METAL CNC OPERATOR) Anatomical Region Laterality Modality Body N/A Computed Tomogra phy 02/16/2019 8:17 PM METAL CNC OPERATOR Impressions 02/16/2019 8:27 PM METAL CNC OPERATOR ACUTE DIVERTICULITIS OF MID DESCENDING COLON AND MILD AT THE PROXIMAL SIGMOID. ??NO PERICOLONIC ABSCESS. ILL-DEFINED MID ABDOMINAL MESENTERIC FAT STRANDING CONSISTENT WITH PANNICULITIS. 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 ?? Critical result message with acuity significant has been communicated to ordering provider via the [facility] Critical Result tracking system. Status of follow up communication is is recorded in [facility]. Electronically signed by: Chio Katz M.D. Narrative 02/16/2019 8:27 PM METAL CNC OPERATOR RESULT: Examination: CT ABDOMEN AND PELVIS WITH CONTRAST: History: Unspecified abdominal pain Technique: Transaxial computed tomographic images of the abdomen and pelvis were obtained following administration of 95 mL Optiray 350 intravenous contrast and according to standard protocol. Coronal and sagittal reformatted images were submitted by the technologist. Comparison: None. Findings: The visualized lung bases are clear. There is no pleural effusion. Partial imaged pacemaker lead is seen in the right ventricle. The liver, spleen, pancreas and adrenals are unremarkable. Cholecystectomy clips noted. ??Mild biliary distention is seen consistent with postcholecystectomy change.. No hydronephrosis or nephrolithiasis is seen. Marked calcified nonaneurysmal aorta is seen with moderate calcified plaque and probable moderate ostial stenosis of the celiac origin and SMA.. The portal, splenic vein and superior mesenteric vein are patent. Nondistended stomach noted. Diverticulosis noted worse descending and sigmoid colon with mural thickening, pericolonic fat stranding and lateroconal fascial thickening of the mid descending colon and mild at the proximal sigmoid consistent with acute diverticulitis. ??No pericolonic abscess identified. ??The appendix is unremarkable.. There is no evidence of intestinal obstruction. There is moderate ill-defined mesenteric fat stranding with minute nodes in the midabdomen most consistent with mesenteric panniculitis. There is no free intraperitoneal air or fluid Nondistended urinary bladder is seen. ??The uterus is not remarkable.. There is no suspicious mesenteric or retroperitoneal lymphadenopathy. There is marked narrowed vacuum disc at L4-L5 with grade 1 spondylolisthesis. ??Mild narrowing is also present at L2-L3 and L5-S1. ??There is bulging is facet arthropathy mild central stenosis at L3-L4 moderate L4-L5. Procedure Note Chio Katz MD - 02/16/2019 RESULT: Examination: CT ABDOMEN AND PELVIS WITH CONTRAST: History: Unspecified abdominal pain Technique: Transaxial computed tomographic images of the abdomen and pelvis were obtained following administration of 95 mL Optiray 350 intravenous contrast and according to standard protocol. Coronal and sagittal reformatted images were submitted by the technologist. Comparison: None. Findings: The visualized lung bases are clear. There is no pleural effusion. Partial imaged pacemaker lead is seen in the right ventricle. The liver, spleen, pancreas and adrenals are unremarkable. Cholecystectomy clips noted. Mild biliary distention is seen consistent with postcholecystectomy change.. No hydronephrosis or nephrolithiasis is seen. Marked calcified nonaneurysmal aorta is seen with moderate calcified plaque and probable moderate ostial stenosis of the celiac origin and SMA.. The portal, splenic vein and superior mesenteric vein are patent. Nondistended stomach noted. Diverticulosis noted worse descending and sigmoid colon with mural thickening, pericolonic fat stranding and lateroconal fascial thickening of the mid descending colon and mild at the proximal sigmoid consistent with acute diverticulitis. No pericolonic abscess identified. The appendix is unremarkable.. There is no evidence of intestinal obstruction. There is moderate ill-defined mesenteric fat stranding with minute nodes in the midabdomen most consistent with mesenteric panniculitis. There is no free intraperitoneal air or fluid Nondistended urinary bladder is seen. The uterus is not remarkable.. There is no suspicious mesenteric or retroperitoneal lymphadenopathy. There is marked narrowed vacuum disc at L4-L5 with grade 1 spondylolisthesis. Mild narrowing is also present at L2-L3 and L5-S1. There is bulging is facet arthropathy mild central stenosis at L3-L4 moderate L4-L5. IMPRESSION: ACUTE DIVERTICULITIS OF MID DESCENDING COLON AND MILD AT THE PROXIMAL SIGMOID. NO PERICOLONIC ABSCESS. ILL-DEFINED MID ABDOMINAL MESENTERIC FAT STRANDING CONSISTENT WITH PANNICULITIS. 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 Critical result message with acuity significant has been communicated to ordering provider via the [employer] Critical Result tracking system. Status of follow up communication is is recorded in [employer]. Electronically signed by: Chio Katz M.D. Ronald Castrejon MD IMG CT PROCEDURES Final Result documented in this encounter Visit Diagnoses Diagnosis Abdominal pain, unspecified abdominal location documented in this encounter Administered Medications Inactive Administered Medications - up to 3 most recent administrations Medication Order MAR Action Action Date Dose Rate Site ioversol (OPTIRAY 350) syringe syringe 100 mL 100 mL, intravenous, Once in imaging, contrast, Starting on Fri02/16/19 at 1713, For 1 dose Given 02/16/2019 5:14 PM METAL CNC OPERATOR 95 mL documented in this encounter Orders Medications Ordered That Flaco ht Not Have Been Administered Count Last Ordered Date First Ordered Date ioversol (OPTIRAY 350) syrin ge syringe 100 mL 1 02/16/2019 documented in this encounter Care Teams Patent Clerk Relationship Specialty Start Date End Date Ronald Castrejon MD PCP - General 06/21/16 07/17/22 Reynaldo Flannery DO Consulting Physician Cardiology 09/26/17 Guanakito Holland MD Consulting Physician Cardiovascular Disease 07/29/18 Annel Curiel, BRAYAN [address] [place] [id number] Mutton Puncher 11/18/18 05/16/19 documented as of this encounter
--- OUTSIDE RECORDS SUMMARY | 2024-04-11 06:38 | XMS_ITS | Encounter Summary ---
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 Gender Identity Female 10/09/2022 9:08 AM CDT Sexual Orientation Choose not to disclose 2022 9:08 AM CDT documented as of this encounter Plan of Treatment Not on file documented as of this encounter Visit Diagnoses Not on filedocumented in this encounter Care Teams Pattern Setter Relationship Specialty Start Date End Date Ronald Castrejon MD PCP - General 06/21/16 07/17/22 Reynaldo Flannery DO Consulting Physician Cardiology 09/26/17 Guanakito Holland MD Consulting Physician Cardiovascular Disease 07/29/18 Annel Curiel, BRAYAN [address] [place] [address] Electromatic Typist 11/18/18 05/16/19 documented as of this encounter
--- OUTSIDE RECORDS SUMMARY | 2024-04-11 06:38 | XMS_ITS | Encounter Summary ---
Author Organization [facility] Healthcare Address [address] [place] [address] Care Team Providers Care Building Coordinator Name Role Phone Ronadl Castrejon MD Primary Care Provider [phone] Reynaldo Flannery DO Unavailable [phone] Guanakito Holland MD Unavailable [phone] Reason for Visit * Diagnostic Imaging (Routine) - Closed Specialty Diagnoses / Procedures Referred By Contac t Referred To Contact Diagnoses Upper abdominal pain Procedures [place] ERCP Biliary and Pancreatic [place] [address] [place] [address] Phone: tel: fax: [address] [address] Referral ID Status Reason Start Date Expiration Date Visits Re quested Visits Authorized [id number] Closed 10/19/2019 11/17/2020 1 1 Encounter Details Date Type Department Care Team (Late st Contact Info) Description 10/19/2019 7:25 AM CDT - 10/19/2019 10:41 AM CDT Hospital Encounter [facility] [address] [place] [id number] [place] [address] [place] [address] Upper abdominal pain Discharge Disposition: Discharge to home or self [...] and Family Once a week 03/05/2019 Attends [employer] Services Not on file 03/05 Active Member [...] on file Legal Sex Female 11:18 AM FINISHER PLATE Gender Identity Female 10/09/2022 9:08 AM CDT [...] tablets (1,000 mcg total) by mouth daily ondansetron (ZOFRAN) 4 mg tabletIndications :Prevention of Post-Operative Nausea and Vomiting Take 1 tablet (4 mg total) by mouth every 8 (eight) hours as needed for nausea or vomiting for up to 21 days 20 tablet 10/19/2019 0 ALPRAZolam (XANAX) 0.25 mg tablet Take 1 [...] (2,000 mg total) by mouth daily 3 famotidine (PEPCID) 40 mg tablet Take 1 tablet (40 mg total) by mouth daily 90 tablet 3 02/15/2019 0 fexofenadine (WALESKA) 180 mg tablet Take 1 tablet (180 mg total) by mouth daily 3 fluticasone propionate (FLONASE) 50 mcg/actuation nasal spray Administer 2 sprays into each nostril daily 16 g 3 07/23/2019 3 furosemide (LASIX) 40 mg tablet 06/07/2019 0 HYDROcodone-aceta minophen (NORCO) 5-325 mg per tabletIndications :Pain Take 0.5 tablets by mouth every 6 (six) hours as needed for pain (1 tablet PO PRN pain) 15 tablet 03/14/2019 0 Lactobacillus acidophilus 10 billion cell capsule Take 1 capsule by mouth daily 3 MAGNESIUM ORAL Take 2 capsules by mouth daily 3 spironolactone (ALDACTONE) 25 mg tablet 07/01/2019 2 traMADoL (ULTRAM) 50 mg tablet Take 1 tablet (50 mg total) by mouth every 6 (six) hours as needed for pain 21 tablet 10/19/2019 0 turmeric root extract 500 mg capsule Take [...] Procedure Name Priority Date/Time Associated Diagnosis Comments ERCP Schedule Routine, Read Routine (OP Routine) 10/19/2019 1:02 PM CDT Upper abdominal pain documented in this encounter Results * FL ERCP Biliary and Pancreatic (10/19/2019 1:02 PM CDT) Anatomical Region Laterality Modality Body N/A Computed Radiogr aphy 10/19/2019 4:01 PM CDT Impressions 10/19/2019 4:02 PM CDT ERCP as above. Electronically signed by: Abhinav Williamson M.D. Narrative 10/19/2019 4:02 PM CDT Endoscopic catheterization of the biliary duct. HISTORY:Abdominal pain. FINDINGS: Please see endoscopy lab report for full details and recommendations. Images obtained during injection of biliary and pancreatic duct. The bile duct is dilated. ??Balloon sweep done. ??Attenuated pancreatic duct side branches. Drainage of contrast on the final image. Procedure Note Abhinav Williamson MD - 10/19/2019 Endoscopic catheterization of the biliary duct. HISTORY:Abdominal pain. FINDINGS: Please see endoscopy lab report for full details and recommendations. Images obtained during injection of biliary and pancreatic duct. The bile duct is dilated. Balloon sweep done. Attenuated pancreatic duct side branches. Drainage of contrast on the final image. IMPRESSION: ERCP as above. Electronically signed by: Abhinav Williamson M.D. Buddy Weir MD IMG FLUOROSCOPY PROCEDURES Final Result documented in this encounter Visit Diagnoses Diagnosis Upper abdominal pain documented in this encounter Administered Medications Inactive Administered Medications - up to 3 most recent administrations Medication Order MAR Action Action Date Dose Rate Site iothalamate meglumine (CONRAY) 60 % injection 30 mL 30 mL, intraductal, Once in imaging, contrast, Starting on Fri10/19/19 at 1245, For 1 dose Given 10/19/2019 12:43 PM CDT 15 mL documented in this encounter Orders Medications Ordered That Flaco ht Not Have Been Administered Count Last Ordered Date First Ordered Date iothalamate meglumine (CONRA Y) 60 % injection 30 mL 1 10/19/2019 documented in this encounter Care Teams Building Coordinator Relationship Specialty Start Date End Date Ronald Castrejon MD PCP - General 06/21/16 07/17/22 Reynaldo Flannery DO Consulting Physician Cardiology 09/26/17 Guanakito Holland MD Consulting Physician Cardiovascular Disease 07/29/18 documented as of this encounter
--- OUTSIDE RECORDS SUMMARY | 2024-04-11 06:38 | XMS_ITS | Encounter Summary ---
Author Organization [facility] Medical Group Address [address] [place] [address] Care Team Providers Care Dimmer Board Operator Name Role Phone Ronald Castrejon MD Primary Care Provider [phone] Reynaldo Flannery DO Unavailable [phone] Guanakito Holland MD Unavailable [phone] Encounter Details Date Type Department Care Team (Late st Contact Info) Description 05/26/2019 Orders Only [facility] Information [facility] [address] [place] [address] Ronald Castrejon MD [address] [place] [address] [address] Social History Tobacco Use Types Packs/Day Years [...] and Family Once a week 03/05/2019 Attends [employer] Services Not on file 03/05 Active Member [...] on file Legal Sex Female 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 Gender Identity Female 10/09/2022 9:08 AM CDT Sexual Orientation Choose not to disclose 2022 9:08 AM CDT documented as of this encounter Plan of Treatment Not on file documented as of this encounter Procedures Procedure Name Priority Date/Time Associated Diagnosis Comments COLONOSCOPY Routine 05/26/2019 documented in this encounter Results * Colonoscopy (05/26/2019) Anatomical Region Laterality Modality Other us Historical Provider MD ENDOSCOPY PROCEDURES Roshni l Result documented in this encounter Visit Diagnoses Not on filedocumented in this encounter Care Teams Dimmer Board Operator Relationship Specialty Start Date End Date Ronald Castrejon MD PCP - General 06/21/16 07/17/22 Reynaldo Flannery DO Consulting Physician Cardiology 09/26/17 Guanakito Holland MD Consulting Physician Cardiovascular Disease 07/29/18 documented as of this encounter
--- OUTSIDE RECORDS SUMMARY | 2024-04-11 06:38 | XMS_ITS | Encounter Summary ---
Author Organization [facility] Medical [facility] Address [address] [place] [address] Care Team Providers Care [employer] Mechanical Name Role Phone Ronald Castrejon MD Primary Care Provider Reynaldo Flannery DO Unavailable [phone] Guanakito Holland MD Unavailable Annel Curiel RN Unavailable [phone] Reason for Visit * Reason Comments Abdominal Pain follow up Encounter Details Date Type Department Care Team (Late st Contact Info) Description 02/22/2019 2:15 PM SERVICE DELIVERY DIRECTOR Office Visit [facility] [address] [place] [address] Ronald Castrejon MD [address] [place] [address] [address] [place], [place] [id number] Acute diverticulitis (Primary Dx); BMI 32.0-32.9,adult; Diverticulosis Social History Tobacco Use Types Packs/Day Years [...] file Legal Sex Female 11:18 AM SERVICE DELIVERY DIRECTOR Gender Identity Female 10/09/2022 9:08 AM CDT Sexual Orientation Choose not to disclose 2022 9:08 AM CDT documented as of this encounter Last Filed Vital Signs Vital Sign Reading Time Taken Comments Blood Pressure 110/80 02/22/2019 2:26 PM SERVICE DELIVERY DIRECTOR Pulse 60 02/22/2019 2:26 PM SERVICE DELIVERY DIRECTOR Temperature - - Respiratory Rate 18 02/22/2019 2:26 PM SERVICE DELIVERY DIRECTOR Oxygen Saturation - - Inhaled Oxygen Concentration - - Weight 77.1 kg (170 lb) 02/22/2019 2:26 PM SERVICE DELIVERY DIRECTOR Height 154.9 cm (5' 1 ) 02/22/2019 2:26 PM SERVICE DELIVERY DIRECTOR Body Mass Index 32.12 02/22/2019 2:26 PM SERVICE DELIVERY DIRECTOR documented in this encounter Progress Notes * Ronald Castrejon MD - 02/22/2019 2:15 PM CST Subjective/Objective Patient ID: Abena Giron is a 78 y.o. female. Chief Complaint Abdominal Pain (follow up) Diverticulitis HPI Patient returns today after follow-up visit for her abdominal pain CT scan confirmed diverticulitisshe was treated with Flagyl and Cipro with good results she has finished off the antibiotics has nofurther abdominal discomfort no melena no hematochezia Review of Systems Vitals: 02/22/19 1426 BP: 110/80 BP Location: Left arm Patient Position: Sitting Pulse: 60 Resp: 18 Weight: 77.1 kg (170 lb) Height: 154.9 cm (5' 1 ) Physical Exam She is pleasant no distress the abdomen soft nontender lungs are clear no rales rhonchi or wheezes Assessment/Plan Diagnoses and all orders for this visit: Acute diverticulitis (Primary) BMI 32.0-32.9,adult Diverticulosis Finish off antibiotic therapy Disease process of diverticulosis and diverticulitis discussed with patient at length he will set up with her GI doctor for follow-up colonoscopy per her request She will follow up with me as previously directed recommend she keep her stool soft with daily MiraLax Side effects, risks, interactions reviewed with patient. Indications for testing discussed. Any further problems to contact us. She was told what to look out for and verbalized understanding. The patient was given the opportunity to have all questions answered today and was in agreement with the plan of care. ICE DELIVERY DIRECTOR documented in this encounter Plan of Treatment Not on file documented as of this encounter Visit Diagnoses Diagnosis Acute diverticulitis- Primary BMI 32.0-32.9,adult Diverticulosis Diverticulosis of colon (without mention of hemorrhage) documented in this encounter Care Teams [employer] Aircre[employer] Mechanical Relationship Specialty Start Date End Date Ronald Castrejon MD PCP - General 06/21/16 07/17/22 Reynaldo Flannery DO Consulting Physician Cardiology 09/26/17 Guanakito Holland MD Consulting Physician Cardiovascular Disease 07/29/18 Annel Curiel, BRAYAN [address] [place] [id number] Landscape Technician 11/18/18 05/16/19 documented as of this encounter
--- OUTSIDE RECORDS SUMMARY | 2024-04-11 06:38 | XMS_ITS | Encounter Summary ---
Author Organization [facility] Address [address] [place] [address] Care Team Providers Care Ceramic Restorer Name Role Phone Ronald Castrejon MD Primary Care Provider [phone] Reynaldo Flannery DO Unavailable [phone] Guanakito Holland MD Unavailable [phone] Annel Curiel RN Unavailable [phone] Reason for Referral * Diagnostic Imaging (Routine) - Closed Specialty Diagnoses / Procedures Referred By Contac t Referred To Contact Radiology Diagnoses Abdominal pain, unspecified abdominal location Procedures CT Abdomen Pelvis W Contrast Ronald Castrejon MD Phone: tel: fax: [address] [address] Referral ID Status Reason Start Date Expiration Date Visits Re quested Visits Authorized [id number] Closed 02/15/2019 08/26/2020 1 1 T PATROL INSPECTOR Encounter Details Date Type Department Care Team (Late st Contact Info) Description 02/15/2019 Orders Only [place] [facility] [address] [facility] [address] [place] [address] Ronald Castrejon MD [address] [place] [address] [place] [address] Abdominal pain, unspecified abdominal location (Primary Dx); B12 deficiency; Vitamin D deficiency; Magnesium deficiency Social History Tobacco Use Types Packs/Day Years Used Date Smoking Tobacco: Former Cigarettes Q uit: 1975 Smokeless Tobacco: Never Alcohol Use Standard Drinks/Week Comments No 0 (1 standard drink = 0.6 oz pur e alcohol) PHQ-2 Answer Date Recorded PHQ-2 Score 0 12/24/2018 Comments No Sex and Gender Information Value Date Recorded Sex Assigned at Not on file Legal Sex Female 11:18 AM NIGHT PATROL INSPECTOR Gender Identity Female 10/09/2022 9:08 AM CDT Sexual Orientation Choose not to disclose 2022 9:08 AM CDT documented as of this encounter Plan of Treatment Scheduled Orders Name Type Priority Associated Diagnoses Orde r Schedule Hepatic function panel Lab Routine Abdominal pain, unspecified abdominal location 1 Occurrences starting 02/15/2019 until 02/16/2020 documented as of this encounter Procedures Procedure Name Priority Date/Time Associated Diagnosis Comments HEPATIC FUNCTION PANEL, SERUM Routine 02/15/2019 12:18 PM NIGHT PATROL INSPECTOR CBC WITH AUTO DIFFERENTIAL Routine 02/15/2019 12:18 PM NIGHT PATROL INSPECTOR Abdominal pain, unspecified abdominal location VITAMIN D 25 HYDROXY Routine 02/15/2019 12:18 PM NIGHT PATROL INSPECTOR Vitamin D deficiency ERYTHROCYTE SEDIMENTATION RATE Routine 02/15/2019 12:18 PM NIGHT PATROL INSPECTOR Abdominal pain, unspecified abdominal location MAGNESIUM Routine 02/15/2019 12:18 PM NIGHT PATROL INSPECTOR Magnesium deficiency LIPASE Routine 02/15/2019 12:18 PM NIGHT PATROL INSPECTOR Abdominal pain, unspecified abdominal location VITAMIN B12 Routine 02/15/2019 12:18 PM NIGHT PATROL INSPECTOR B12 deficiency AMYLASE Routine 02/15/2019 12:18 PM NIGHT PATROL INSPECTOR Abdominal pain, unspecified abdominal location BASIC METABOLIC PANEL Routine 02/15/2019 12:18 PM NIGHT PATROL INSPECTOR Abdominal pain, unspecified abdominal location documented in this encounter Results * CT Abdomen Pelvis W Contrast (02/16/2019 5:13 PM NIGHT PATROL INSPECTOR) Anatomical Region Laterality Modality Body N/A Computed Tomogra phy 02/16/2019 8:17 PM NIGHT PATROL INSPECTOR Impressions 02/16/2019 8:27 PM NIGHT PATROL INSPECTOR ACUTE DIVERTICULITIS OF MID DESCENDING COLON AND [...] been communicated to ordering provider via the IMGuest Critical Result tracking system. Status of follow up communication is is recorded in IMGuest. Electronically signed by: Chio Katz M.D. Narrative 02/16/2019 8:27 PM NIGHT PATROL INSPECTOR RESULT: Examination: CT ABDOMEN AND PELVIS WITH [...] been communicated to ordering provider via the IMGuest Critical Result tracking system. Status of follow up communication is is recorded in IMGuest. Electronically signed by: Chio Katz M.D. Ronald Castrejon MD IMG CT PROCEDURES Final Result * Hepatic Function Panel, Serum (02/15/2019 12:18 PM NIGHT PATROL INSPECTOR) Protein, sr 6.9 6.1 - 8.1 g/dL [facility] [place] Albumin 4.1 3.6 - 5.1 g/dL [facility] [place] GLOBULIN 2.8 1.9 - 3.7 g/dL (calc) [facility] [place] Alb/glob ratio 1.5 1.0 - 2.5 (calc) [facility] [place] Bilirubin, total 0.5 0.2 - 1.2 mg/dL [facility] [place] Bilirubin, direct 0.1 < OR = 0.2 mg/dL [facility] [place] Bilirubin, indirect 0.4 0.2 - 1.2 mg/dL (calc) [facility] [place] Alk phos 40 33 - 130 U/L [facility] [place] AST 13 10 - 35 U/L [facility] [place] ALT (SGPT) 9 6 - 29 U/L [facility] [place] 02/15/2019 12:1 8 PM NIGHT PATROL INSPECTOR 02/16/2019 5:54 AM NIGHT PATROL INSPECTOR Narrative Resulting Agency Comment Performing Organization Information: ?Site ID: [place] ?Name: [facility] ?Address: [address] [address] ?Director: Jerardo Krueger D.O., MPH Ronald Castrejon MD LAB BLOOD ORDERABLES Final Res ult [facility] [place] * (ABNORMAL) Erythrocyte sedimentation rate (02/15/2019 12:18 PM NIGHT PATROL INSPECTOR) Erythrocyte sedimentation rate 103(H) < OR = 30 mm/h [facility] [place] Comment: Verified by repeat analysis. Blood specimen (specimen) 02/15/2019 12:18 PM NIGHT PATROL INSPECTOR 02/16/2019 5:54 AM NIGHT PATROL INSPECTOR Narrative Resulting Agency Comment Performing Organization Information: ?Site ID: [place] ?Name: [facility] ?Address: [facility] [place] [address] ?Director: Jerardo Krueger D.O. MPH Ronald Castrejon MD LAB BLOOD ORDERABLES Final Res ult Performing Organization Address [facility] Co de Phone Number [place] Olmos * Magnesium (02/15/2019 12:18 PM NIGHT PATROL INSPECTOR) Pathologist [facility] Magnesium 2.0 1.5 - 2.5 mg/dL [facility] [place] Blood specimen (specimen) 02/15/2019 12:18 PM NIGHT PATROL INSPECTOR 02/16/2019 5:54 AM NIGHT PATROL INSPECTOR Narrative Resulting Agency Comment Performing Organization Information: ?Site ID: [place] ?Name: [facility] ?Address: [facility] [place] [address] ?Director: Jerardo Krueger D.O. MPH Ronald Castrejon MD LAB BLOOD ORDERABLES Final Res ult Performing Organization Address [facility] Co de Phone Number [place] Olmos * (ABNORMAL) Vitamin B12 (02/15/2019 12:18 PM NIGHT PATROL INSPECTOR) Vitamin B12 >2000(H) 200 - 1100 pg/mL [facility] [place] Blood specimen (specimen) 02/15/2019 12:18 PM NIGHT PATROL INSPECTOR 02/16/2019 5:54 AM NIGHT PATROL INSPECTOR Narrative Resulting Agency Comment Performing Organization Information: ?Site ID: PR[place] ?Name: [facility] ?Address: [address] [address] ?Director: Jerardo Krueger D.O. MPH Ronald Castrejon MD LAB BLOOD ORDERABLES Final Res ult Performing Organization Address [facility] Co de Phone Number [facility] [place] * Vitamin D 25 hydroxy (02/15/2019 12:18 PM NIGHT PATROL INSPECTOR) Pathologist [facility] [place] Vitamin D 25-OH 65 30 - 100 ng/mL [facility] [place] Comment: Vitamin D Status ? 25-OH Vitamin D: Deficiency: ?<20 ng/mL Insufficiency: ? 20 - 29 ng/mL Optimal: ? > or = 30 ng/mL For 25-OH Vitamin D testing on patients on D2-supplementation and patients for whom quantitation of D2 and D3 fractions is required, the QuestAssureD(TM) 25-OH VIT D, (D2,D3), LC/MS/MS is recommended: order code 18174 (patients >2yrs). For more information on this test, go to: http://education.[employer]/faq/XRX977 (This link is being provided for informational/educational purposes only.) Blood specimen (specimen) 02/15/2019 12:18 PM NIGHT PATROL INSPECTOR 02/16/2019 5:54 AM NIGHT PATROL INSPECTOR Narrative Resulting Agency Comment Performing Organization Information: ?Site ID: PRER[place] ?Name: [facility] ?Address: [address] [address] ?Director: Jerardo Krueger D.O., MPH Ronald Castrejon MD LAB BLOOD ORDERABLES Final Res ult Performing Organization Address [facility] de Phone Number [facility] [place] Han * (ABNORMAL) Basic metabolic panel (02/15/2019 12:18 PM NIGHT PATROL INSPECTOR) Glucose 107(H) 65 - 99 mg/dL [facility] [place] Comment: ? Fasting reference interval For someone without known diabetes, a glucose value between 100 and 125 mg/dL is consistent with prediabetes and should be confirmed with a follow-up test. BUN 11 7 - 25 mg/dL [facility] [place] Creatinine 0.78 0.60 - 0.93 mg/dL [facility] [place] Comment: For patients >49 years of age, the reference limit for Creatinine is approximately 13% higher for people identified as -Georgian. eGFR NON-AFR. SALVADOREAN 73 > OR = 60 mL/min/1 .73m2 [facility] [place] EGFR 84 > OR = 60 mL/min/1 .73m2 [facility] [place] BUN/creat ratio NOT APPLICABLE 6 - 22 (calc) [facility] [place] Sodium 142 135 - 146 mmol/L [facility] [place] Potassium, pl 4.3 3.5 - 5.3 mmol/L [facility] [place] Chloride 102 98 - 110 mmol/L [facility] [place] CO2 28 20 - 32 mmol/L [facility] [place] Calcium 9.5 8.6 - 10.4 mg/dL [facility] [place] Blood specimen (specimen) 02/15/2019 12:18 PM NIGHT PATROL INSPECTOR 02/16/2019 5:54 AM NIGHT PATROL INSPECTOR Narrative Resulting Agency Comment Performing Organization Information: ?Site ID: [place] ?Name: [facility] ?Address: [address] [place], [place] [address] [address] ?Director: Jerardo Krueger D.O., MPH us Ronald Castrejon MD LAB BLOOD ORDERABLES Final Res ult [facility] [place] * (ABNORMAL) CBC with auto differential (02/15/2019 12:18 PM NIGHT PATROL INSPECTOR) WBC 11.1(H) 3.8 - 10.8 Thousand/ uL [facility] [place] RBC, POC 4.31 3.80 - 5.10 Million/u L [facility] [place] Hgb 13.6 11.7 - 15.5 g/dL [facility] [place] Hct 40.8 35.0 - 45.0 % [facility] [place] MCV 94.7 80.0 - 100.0 fL [facility] [place] MCH 31.6 27.0 - 33.0 pg [facility] [place] MCHC 33.3 32.0 - 36.0 g/dL [facility] [place] Rdw 11.8 11.0 - 15.0 % [facility] [place] Platelets 316 140 - 400 Thousand/ uL [facility] [place] MPV 10.6 7.5 - 12.5 fL [facility] [place] Neutrophils, abs 8,070(H) 1,500 - 7,800 cells/uL [facility] [place] Lymphocytes, abs 1,920 850 - 3,900 cells/uL [facility] [place] Monocyte abs 877 200 - 950 cells/uL [facility] [place] Eosinophils, abs 155 15 - 500 cells/uL [facility] [place] Basophils, abs 78 0 - 200 cells/uL [facility] [place] Neutrophils 72.7 % [facility] [place] Lymphocyte pct 17.3 % [facility] [place] Monocytes 7.9 % [facility] [place] Eosinophils 1.4 % [facility] [place] Basophils 0.7 % [facility] [place] Blood specimen (specimen) 02/15/2019 12:18 PM NIGHT PATROL INSPECTOR 02/16/2019 5:54 AM NIGHT PATROL INSPECTOR Narrative Resulting Agency Comment Performing Organization Information: ?Site ID: [place] ?Name: [facility] ?Address: [address] [place] [address] [place] [address] ?Director: Jerardo Krueger D.O., MPH us Ronald Castrejon MD LAB BLOOD ORDERABLES Final Res ult [facility] [place] * Amylase (02/15/2019 12:18 PM NIGHT PATROL INSPECTOR) Amylase 33 21 - 101 U/L [facility] [place] Blood specimen (specimen) 02/15/2019 12:18 PM NIGHT PATROL INSPECTOR 02/16/2019 5:54 AM NIGHT PATROL INSPECTOR Narrative Resulting Agency Comment Performing Organization Information: ?Site ID: PR[place] ?Name: Moe [facility] ?Address: [address] [address] ?Director: Jerardo Krueger D.O., MPH us Ronald Castrejon MD LAB BLOOD ORDERABLES Final Res ult Performing Organization Address [facility] Co de Phone Number [facility] [place] Urias * Lipase (02/15/2019 12:18 PM NIGHT PATROL INSPECTOR) LIPASE 23 7 - 60 U/L [facility] [place] Blood specimen (specimen) 02/15/2019 12:18 PM NIGHT PATROL INSPECTOR 02/16/2019 5:54 AM NIGHT PATROL INSPECTOR Narrative Resulting Agency Comment Performing Organization Information: ?Site ID: PR[place] ?Name: Moe Marshall ?Address: [address] [address] ?Director: Jerardo Krueger D.O., MPH us Ronald Castrejon MD LAB BLOOD ORDERABLES Final Res ult Performing Organization Address [facility] Co de Phone Number [place] Olmos documented in this encounter Visit Diagnoses Diagnosis Abdominal pain, unspecified abdominal location- Primary B12 deficiency Vitamin D deficiency Magnesium deficiency Disorders of magnesium metabolism Abdominal pain, unspecified abdominal location documented in this encounter Care Teams Ceramic Restorer Relationship Specialty Start Date End Date Ronald Castrejon MD PCP - General 06/21/16 07/17/22 Reynaldo Flannery DO Consulting Physician Cardiology 09/26/17 Guanakito Holland MD Consulting Physician Cardiovascular Disease 07/29/18 Annel Curiel RN [address] [facility] [facility] [address] [place] [address] Applications Programmer 11/18/18 05/16/19 documented as of this encounter
--- OUTSIDE RECORDS SUMMARY | 2024-04-11 06:38 | XMS_ITS | Encounter Summary ---
Author Organization [facility] Address [address] [facility] [address] [place] [address] Care Team Providers Care Director Voice Name Role Phone Ronald Castrejon MD Primary Care Provider [phone] Reynaldo Flannery DO Unavailable [phone] Guanakito Holland MD Unavailable [phone] Annel Curiel RN Unavailable Reason for Visit * Reason Onset Date Comments pt update 01/12/2019 Encounter Details Date Type Department Care Team (Late st Contact Info) Description 01/12/2019 Telephone [facility] [address] [facility] [address] [place] [address] Ronald Castrejon MD [address] [place] [address] [address] [place] [address] pt update Social History Tobacco Use Types Packs/Day Years Used Date Smoking Tobacco: Former Cigarettes Q uit: 1975 Smokeless Tobacco: Never Alcohol Use Standard Drinks/Week Comments No 0 (1 standard drink = 0.6 oz pur e alcohol) PHQ-2 Answer Date Recorded PHQ-2 Score 0 12/24/2018 Comments No Sex and Gender Information Value Date Recorded Sex Assigned at Not on file 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 She spoke with pt and the pt doesn't want to schedule an appt with the office right now. She is going to wait and see how she feels and then will call back at a later time to possibly schedule an appt. * Telephone Encounter - Yessy Mata MA - 01/14/2019 11:10 AM CDT LMTC with the patient and LMTC with Annel as well. * Telephone Encounter - Yessy Mata MA - 01/13/2019 8:17 AM CDT LMTC * Telephone Encounter - Yessy Mata MA - 01/12/2019 1:51 PM CDT LMTC * Telephone Encounter - Ronald Castrejon MD - 01/12/2019 1:46 PM CDT Appointment with barker peeler * Telephone Encounter - Annel Curiel RN - 01/12/2019 12:58 PM CDT CM spoke with patient in complex care program. Patient is s/p planned AV node ablation 01/06/2019. She reports having issue with acid reflux. She states that she currently takes 2 prevacid before breakfast every morning, and also takes GI Enzymes 3 times per day with meals. We also discussed avoiding spicy, or fried foods. Do you have any suggestions or recommendations that can assist her with GERD? Thanks, Annel Curiel RN, BSN, CCM senior web architect [facility] [phone] [email or web address] documented in this encounter Plan of Treatment Not on file documented as of this encounter Visit Diagnoses Not on filedocumented in this encounter Care Teams Director Voice Relationship Specialty Start Date End Date Ronald Castrejon MD PCP - General 06/21/16 07/17/22 Reynaldo Flannery DO Consulting Physician Cardiology 09/26/17 Guanakito Holland MD Consulting Physician Cardiovascular Disease 07/29/18 Annel Curiel RN [address] [facility] [address] [place] [address] Radio Director 11/18/18 05/16/19 documented as of this encounter
--- OUTSIDE RECORDS SUMMARY | 2024-04-11 06:38 | XMS_ITS | Encounter Summary ---
Author Organization [facility] Address [address] [facility] [address] [place] [address] Care Team Providers Care Hair Spinner Name Role Phone Ronald Castrejon MD Primary Care Provider [phone] Reynaldo Flannery DO Unavailable [phone] Guanakito Holland MD Unavailable Annel Curiel RN Unavailable Encounter Details Date Type Department Care Team (Late st Contact Info) Description 02/17/2019 Telephone [facility] [address] [facility] [address] [place] [address] Ronald Castrejon MD [address] [place] [address] [address] [place] [address] Social History Tobacco Use Types Packs/Day Years Used Date Smoking Tobacco: Former Cigarettes Q uit: 1975 Smokeless Tobacco: Never Alcohol Use Standard Drinks/Week Comments No 0 (1 standard drink = 0.6 oz pur e alcohol) PHQ-2 Answer Date Recorded PHQ-2 Score 0 12/24/2018 Comments No Sex and Gender Information Value Date Recorded Sex Assigned at Not on file 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 Gender Identity Female 10/09/2022 9:08 AM CDT Sexual Orientation Choose not to disclose 2022 9:08 AM CDT documented as of this encounter Miscellaneous Notes * Telephone Encounter - Yessy Mata MA - 02/17/2019 8:47 AM CST ----- Message from Ronald Castrejon MD sent at 02/17/2019 6:57 AM WINDOWS MIGRATION TECHNICIAN ----- I talked to the patient on the [...] versus diverticulosis discussed with patient this morning OWS MIGRATION TECHNICIAN documented in this encounter Plan of Treatment Not on file documented as of this encounter Visit Diagnoses Not on filedocumented in this encounter Care Teams Hair Spinner Relationship Specialty Start Date End Date Ronald Castrejon MD PCP - General 06/21/16 07/17/22 Reynaldo Flannery DO Consulting Physician Cardiology 09/26/17 Guanakito Holland MD Consulting Physician Cardiovascular Disease 07/29/18 Annel Curiel, BRAYAN [address] [place] [address] Program Research Specialist 11/18/18 05/16/19 documented as of this encounter
--- OUTSIDE RECORDS SUMMARY | 2024-04-11 06:38 | XMS_ITS | Encounter Summary ---
Author Organization [facility] Address [address] [facility] [address] [place] [address] Care Team Providers Care Felt Hat Pouncing Operator Hand Name Role Phone Ronald Castrejon MD Primary Care Provider Reynaldo Flannery DO Unavailable Guanakito Holland MD Unavailable [phone] Annel Curiel RN Unavailable Encounter Details Date Type Department Care Team (Late st Contact Info) Description 02/23/2019 Orders Only [facility] [address] [facility] [address] [place] [address] Ronald Castrejon MD [address] [place] [address] [address] [place] [address] Diverticulitis (Primary Dx) Social History Tobacco Use Types [...] on file 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 Gender Identity Female 10/09/2022 9:08 AM CDT Sexual Orientation Choose not to disclose 2022 9:08 AM CDT documented as of this encounter Plan of Treatment Not on file documented as of this encounter Visit Diagnoses Diagnosis Diverticulitis- Primary Diverticulitis of colon (without mention of hemorrhage) documented in this encounter Care Teams Felt Hat Pouncing Operator Hand Relationship Specialty Start Date End Date Ronald Castrejon MD PCP - General 06/21/16 07/17/22 Reynaldo Flannery DO Consulting Physician Cardiology 09/26/17 Guanakito Holland MD Consulting Physician Cardiovascular Disease 07/29/18 Annel Curiel, BRAYAN [address] [place] [address] [address] [place] [address] Wellness Educator 11/18/18 05/16/19 documented as of this encounter
--- OUTSIDE RECORDS SUMMARY | 2024-04-11 06:38 | XMS_ITS | Encounter Summary ---
Author Organization [facility] Address [address] [facility] [address] [place] [address] Care Team Providers Care Small Engine Specialist Name Role Phone Ronald Castrejon MD Primary Care Provider [phone] Reynaldo Flannery DO Unavailable [phone] Guanakito Holland MD Unavailable [phone] Encounter Details Date Type Department Care Team (Late st Contact Info) Description 01/07/2020 Orders Only [facility] [address] [facility] [address] [place] [address] Provider, MD Rosalinda [address] [place] [address] Social History Tobacco Use Types Packs/Day [...] Difficulty of Paying Living Expenses Not very [address] rd 03/05/2019 PHQ-2 Answer Date Recorded PHQ-2 [...] on file 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 Gender Identity Female 10/09/2022 9:08 AM CDT Sexual Orientation Choose not to disclose 2022 9:08 AM CDT documented as of this encounter Plan of Treatment Not on file documented as of this encounter Procedures Procedure Name Priority Date/Time Associated Diagnosis Comments SCAN - LABS Routine 01/04/2020 SCAN - LABS Routine 01/04/2020 documented in this encounter Results * SCAN - LABS (01/04/2020) us Historical Provider MD Final Res ult * SCAN - LABS (01/04/2020) us Historical Provider MD Final Res ult documented in this encounter Visit Diagnoses Not on filedocumented in this encounter Care Teams Small Engine Specialist Relationship Specialty Start Date End Date Ronald Castrejon MD PCP - General 06/21/16 07/17/22 Reynaldo Flannery DO Consulting Physician Cardiology 09/26/17 Guanakito Holland MD Consulting Physician Cardiovascular Disease 07/29/18 documented as of this encounter
--- OUTSIDE RECORDS SUMMARY | 2024-04-11 06:38 | XMS_ITS | Encounter Summary ---
Author Organization [facility] Address [address] [facility] [address] [place] [address] Care Team Providers Care Tactical/Mobile Watch Officer Name Role Phone Ronald Castrejon MD Primary Care Provider [phone] Reynaldo Flannery DO Unavailable [phone] Guanakito Holland MD Unavailable [phone] Annel Curiel RN Unavailable Encounter Details Date Type Department Care Team (Late st Contact Info) Description 02/23/2019 Telephone [facility] 2 [facility] [address] [place] [address] Ronald Castrejon MD [address] [place] [address] [address] [place] [address] Social History Tobacco Use Types [...] on file 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 Francois's office along with recent CT scan results and OV note.Their office will contact pt to schedule. [employer] * Telephone Encounter - Yessy Mata MA - 02/23/2019 8:24 AM CST Patient aware Sent to referrals [employer] * Telephone Encounter - Ronald Castrejon MD - 02/23/2019 7:20 AM CST Refer patient to her GI specialist Dr. Edmondson in [place] for consultation regarding recent diverticulitis and for possible follow-up colonoscopy [employer] documented in this encounter Plan of Treatment Not on file documented as of this encounter Visit Diagnoses Not on filedocumented in this encounter Care Teams Tactical/Mobile Watch Officer Relationship Specialty Start Date End Date Ronald Castrejon MD PCP - General 06/21/16 07/17/22 Reynaldo Flannery DO Consulting Physician Cardiology 09/26/17 Guanakito Holland MD Consulting Physician Cardiovascular Disease 07/29/18 Annel Curiel RN [address] [place] [address] [place] [id number] [employer] 11/18/18 05/16/19 documented as of this encounter
--- OUTSIDE RECORDS SUMMARY | 2024-04-11 06:38 | XMS_ITS | Encounter Summary ---
Author Organization [facility] Address [address] [place] [address] Care Team Providers Care Customer Relations Representative Name Role Phone Ronald Castrejon MD Primary Care Provider [phone] Reynaldo Flannery DO Unavailable [phone] Guanakito Holland MD Unavailable [phone] Encounter Details Date Type Department Care Team (Late st Contact Info) Description 10/19/2019 10:42 AM CDT - 10/19/2019 3:25 PM CDT Hospital Encounter [facility] [address] [place] [address] [place] [address] [place] [address] Discharge Disposition: Discharge to home or self [...] and Family Once a week 03/05/2019 Attends Mosque Services Not on file 03/05 Active Member [...] on file 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 Gender Identity Female 10/09/2022 9:08 AM CDT Sexual Orientation Choose not to disclose 2022 9:08 AM CDT documented as of this encounter Last Filed Vital Signs Vital Sign Reading Time Taken Comments Blood Pressure 123/85 10/19/2019 3:15 PM CDT Pulse 69 10/19/2019 3:15 PM CDT Temperature 35.7 ??C (96.3 ??F) 10/19/2019 1:11 PM CD T Respiratory Rate 15 10/19/2019 3:15 PM CDT Oxygen Saturation 93% 10/19/2019 3:15 PM CDT Inhaled Oxygen Concentration - - Weight 75.8 kg (167 lb) 10/19/2019 11:51 AM CDT Height 154.9 cm (5' 1 ) 10/19/2019 11:51 AM CDT Body Mass Index 31.55 10/19/2019 11:51 AM CDT documented in this encounter Discharge Diagnoses Diagnosis Other specified diseases of biliary tract - OTHER SPECIFIED DISEASES OF BILIARY TRACT Other cholelithiasis without obstruction - OTHER CHOLELITHIASIS WITHOUT OBSTRUCTION Gastro-esophageal reflux disease without esophagitis - GASTRO-ESOPHAGEAL REFLUX DISEASE WITHOUT ESOPHAGITIS Abnormal findings on diagnostic imaging of other parts of digestive tract - ABNORMAL FINDINGS ON DIAGNOSTIC IMAGING OF OTHER PARTS OF DIGESTIVE TRACT Acquired absence of other specified parts of digestive tract - ACQUIRED ABSENCE OF OTHER SPECIFIED PARTS OF DIGESTIVE TRACT Hyperlipidemia, unspecified - HYPERLIPIDEMIA, UNSPECIFIED Unspecified atrial fibrillation (HCC) - UNSPECIFIED ATRIAL FIBRILLATION Atherosclerotic heart disease of [place] coronary artery without angina pectoris - ATHEROSCLEROTIC HEART DISEASE OF [place] CORONARY ARTERY WITHOUT ANGINA PECTORIS Old myocardial infarction - OLD MYOCARDIAL INFARCTION Hypertensive heart disease with heart failure ([facility] ([facility]) - HYPERTENSIVE HEART DISEASE WITH HEART FAILURE Unspecified hypertensive heart disease with heart failure Heart failure, unspecified ([facility] ([facility]) - HEART FAILURE, UNSPECIFIED Heart failure, unspecified Nonrheumatic mitral (valve) insufficiency - NONRHEUMATIC MITRAL (VALVE) INSUFFICIENCY Bradycardia, unspecified - BRADYCARDIA, UNSPECIFIED Obstructive sleep apnea (adult) (pediatric) - OBSTRUCTIVE SLEEP APNEA (ADULT) (PEDIATRIC) Major depressive disorder, single episode, unspecified - MAJOR DEPRESSIVE DISORDER, SINGLE EPISODE, UNSPECIFIED Anxiety disorder, unspecified - ANXIETY DISORDER, UNSPECIFIED Unspecified osteoarthritis, unspecified site - UNSPECIFIED OSTEOARTHRITIS, UNSPECIFIED SITE Obesity, unspecified - OBESITY, UNSPECIFIED Presence of cardiac pacemaker - PRESENCE OF CARDIAC PACEMAKER Cardiac pacemaker in situ alf (current) use of anticoagulants - ORTHOTIST (CURRENT) USE OF ANTICOAGULANTS Long-term (current) use of anticoagulants Other [facility] (current) drug therapy - OTHER ORTHOTIST (CURRENT) DRUG THERAPY Allergy status to narcotic agent status - ALLERGY STATUS TO NARCOTIC AGENT STATUS Allergy status to penicillin - ALLERGY STATUS TO PENICILLIN Allergy status to other drugs, medicaments and biological substances status - ALLERGY STATUS TO OTHER DRUGS, MEDICAMENTS AND BIOLOGICAL SUBSTANCES STATUS Personal history of nicotine dependence - PERSONAL HISTORY OF NICOTINE DEPENDENCE Body mass index (bmi) 31.0-31.9, adult - BODY MASS INDEX (BMI) 31.0-31.9, ADULT documented in this encounter Medications at Time [...] daily 3 documented as of this encounter Ordered Prescriptions Prescription Sig Dispense Quantity Refills Last Filled Start Date End Date ondansetron (ZOFRAN) 4 mg tabletIndications: Prevention of Post-Operative Nausea and Vomiting Take 1 tablet (4 mg total) by mouth every 8 (eight) hours as needed for nausea or vomiting for up to 21 days 20 tablet 10/19/2019 0 traMADoL (ULTRAM) 50 mg tablet Take 1 tablet (50 mg total) by mouth every 6 (six) hours as needed for pain 21 tablet 10/19/2019 0 documented in this encounter Discharge Disposition Disposition Code Departure Means Destination Discharge to home or self care documented in this encounter Procedure Notes * Buddy Weir MD - 10/19/2019 10:10 AM CDTAssociated Order(s): ERCP ENDOSCOPY LAB Patient Name: Abena Giron Procedure Date: 10/19/2019 10:10 AM Admit Type: Outpatient Room: [facility] Date of : 1940 Instrument Name: [id number] Gender: Female Note Status: Finalized Procedure: ERCP Indications: Bile duct stone(s), Abdominal pain of suspected biliary origin, Abdominal pain in the right upper quadrant, Biliary dilation on Ultrasound, Evaluation and possible treatment of bile duct stone(s) Providers: Buddy Weir M.D. Referring MD: Ronald Castrejon M.D. Medicines: General Anesthesia Complications: No immediate complications. Estimated blood loss: None Estimated Blood Loss: Estimated blood loss: none. Procedure: The benefits, risks, and alternatives to the procedure and sedation were discussed and informed consent was obtained. The Enteroscope was introduced through the mouth, and used to inject contrast into and used to inject contrast into the bile, dorsal and ventral pancreatic ducts. The ERCP was accomplished without difficulty. The patient tolerated the procedure well. 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 Dilated common bile duct to 14 mm s/p cholecystectomy with delayed contrast emptying. Biliary sphincterotomy and balloon sweep of microlithiasis were done with good bile drainage. Pancreatic duct was normal. 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 Dilated common bile duct to 14 mm s/p cholecystectomy with delayed contrast emptying. Biliary sphincterotomy and balloon sweep of microlithiasis were done with good bile drainage. Pancreatic duct was normal. Recommendation: - Avoid aspirin and nonsteroidal anti-inflammatory medicines for 3 days. - Clear liquid diet today and low fat diet tomorrow. - Tramadol 50-100 mg po q 4-6 hrs prn abdominal pain. - Return to GI clinic in 4 weeks. - If abdominal pain, nausea, vomiting, black loose stool or you are concern of symptoms, please contact me at [phone] or go to the emergency room Attending Participation: I personally performed the entire procedure. Buddy Weir M.D. Buddy Weir M.D. 10/19/2019 1:11:36 PM Number of Addenda: 0 Note Initiated On: 10/19/2019 10:10 AM Scope In: Scope Out: documented in this encounter Consult Notes * Buddy Weir MD - 10/19/2019 11:49 AM CDT Gastroenterology Consult Subjective Patient is a 79 y.o. female with chief complaint of GERD, dyspepsia, N/V, RUQ pain.. Reason for consult: as mentioned above HPI: As mentioned above Past Medical History: Diagnosis Date ??? Adiposity obesity ??? Aortic aneurysm (CMS/HCC) Pt states found by ultrasound upper abd. ??? Arthritis ??? Cancer (CMS/HCC) ??? Depression ??? Gastroesophageal reflux disease GERD ??? History of loop recorder ??? HX OTHER MEDICAL Depression, with Anxiety ??? HX OTHER MEDICAL DJD ??? HX OTHER MEDICAL a.fib ??? HX OTHER MEDICAL Atrial Fibrillation; Outcome: heart ablation ??? Hyperlipidemia Hyperlipidemia ??? Hypertension Hypertension ??? Sleep apnea ??? Vertigo Past Surgical [...] Fibrillation: Cardiovascular Intervention (ablation) ??? SKIN BIOPSY Medications Prior to Admission Medication Sig Dispense Refill Last Dose ??? apixaban (ELIQUIS) 5 mg tablet take 1 tablet by oral route 2 times every day 0 0 Past Week at Unknown time ??? artificial tears (SYSTANE) 0.3 % gel Apply 1 drop to both eyes 4 (four) times a day as needed Past Week at Unknown time ??? ascorbic acid (vitamin C) 1,000 mg tablet Take 2,000 mg by mouth daily Past Week at Unknown time ??? cholecalciferol (VITAMIN D-3) 2,000 unit tablet take 1 tablet by oral route every day 90 3 PastWeek at Unknown time ??? cyanocobalamin (Vitamin B-12) 100 mcg tablet Take 100 mcg by mouth daily. Past Week at Unknown time ??? fexofenadine (WALESKA) 180 mg tablet Take 180 mg by mouth daily Past Week at Unknown time ??? fluticasone propionate (FLONASE) 50 mcg/actuation nasal spray Administer 2 sprays into each nostril daily 16 g 3 Past Week at Unknown time ??? furosemide (LASIX) 40 mg tablet Past Week at Unknown time ??? Lactobacillus acidophilus 10 billion cell capsule Take 1 capsule by mouth daily Past Week at Unknown time ??? MAGNESIUM ORAL Take 2 capsules by mouth daily Past Week at Unknown time ??? spironolactone (ALDACTONE) 25 mg tablet Past Week at Unknown time ??? turmeric root extract 500 mg capsule Take 1 capsule by mouth daily Past Week at Unknown time ??? zinc 50 mg tablet Take 50 mg by mouth daily Past Week at Unknown time ??? ALPRAZolam (XANAX) 0.25 mg tablet Take 1 tablet (0.25 mg total) by mouth 2 (two) times a day asneeded for anxiety 60 tablet 1 Taking ??? famotidine (PEPCID) 40 mg tablet Take 1 tablet (40 mg total) by mouth daily (Patient not taking: Reported on 02/22/2019) 90 tablet 3 Not Taking ??? HYDROcodone-acetaminophen (NORCO) 5-325 mg per tablet Take 0.5 tablets by mouth every 6 (six) hours as needed for pain (1 tablet PO PRN pain) (Patient not taking: Reported on 07/23/2019) 15 tablet 0 Not Taking Allergies Allergen Reactions ??? Phenobarbital Hallucinations ??? [...] comments) severe heart pain ??? Diltiazem Itching Social History Tobacco Use ??? Smoking status: Former Smoker Last attempt to quit: 1975 Years since quittin.6 ??? Smokeless tobacco: Never Used Substance Use Topics ??? Alcohol use: No Family History Problem Relation Age of Onset ??? Other Mother Angina; Cause of : Angina ??? Dementia Mother Dementia; ??? Depression Mother Depression; ??? COPD Father COPD; Cause of : COPD ??? Dementia Father Dementia; ??? Depression Father Depression; ??? Other Sister 75 DM, CAD; ??? Other Sister Valve Replacement; ??? Cancer Brother Cancer; ??? Depression Brother Depression; ??? Hypertension Brother Hypertension; Social History Socioeconomic History ??? Marital status: Spouse name: Not on file ??? Number of children: Not on file ??? Years of education: Not on file ??? Highest education level: Not on file Occupational History ??? Not on file Social Needs ??? Financial resource strain: Not very hard ??? Food insecurity Worry: Never true Inability: Never true ??? Transportation needs Medical: No Non-medical: No Tobacco Use ??? Smoking status: Former Smoker Last attempt to quit: 1975 Years since quittin.6 ??? Smokeless tobacco: Never Used Substance and Sexual Activity ??? Alcohol use: No ??? Drug use: No ??? Sexual activity: Defer Lifestyle ??? Physical activity Days per week: Not on file Minutes per session: Not on file ??? Stress: Not on file Relationships ??? Social connections Talks on phone: Three times a week Gets together: Once a week Attends adventist service: Not on file Active member of club or organization: Not on file Attends meetings of clubs or organizations: Not on file Relationship status: ??? Intimate partner violence Fear of current or ex partner: Not on file Emotionally abused: Not on file Physically abused: Not on file Forced sexual activity: Not on file Other Topics Concern ??? Not on file Social History Narrative Agrees to blood/blood products: Y Agrees to blood/blood products: Y Review of Systems: Review of Systems - General ROS: negative for - chills, fatigue, fever or malaise Psychological ROS: negative for - disorientation or sleep disturbances Ophthalmic ROS: negative for - decreased vision ENT ROS: negative for - nasal congestion, sinus pain or vocal changes Hematological and Lymphatic ROS: negative for - bleeding problems, blood transfusions, jaundice or weight loss Endocrine ROS: negative for - breast changes or skin changes Respiratory ROS: negative for - hemoptysis or shortness of breath Cardiovascular ROS: negative for - dyspnea on exertion, edema, irregular heartbeat or palpitations Gastrointestinal ROS: As mentioned above Genito-Urinary ROS: negative for - dysuria or hematuria Musculoskeletal ROS: negative for - gait disturbance or muscular weakness Neurological ROS: negative for - confusion, dizziness or speech problems Dermatological ROS: negative for pruritus and skin lesion changes Objective Physical Exam: LMP (LMP Unknown) General Appearance: Alert, cooperative, no distress, appears stated age Head: Normocephalic, without obvious abnormality, atraumatic Eyes: PERRL, conjunctiva/corneas clear, EOM's intact, fundi benign, both eyes Nose: Nares normal, septum midline, mucosa normal, no drainage or sinus tenderness Throat: Lips, mucosa, and tongue normal; teeth and gums normal Neck: Supple, symmetrical, trachea midline, no adenopathy; thyroid: No enlargement/tenderness/nodules; no carotid bruit or JVD Back: Symmetric, no curvature, ROM normal, no CVA tenderness Lungs: Clear to auscultation bilaterally, respirations unlabored Chest wall: No tenderness or deformity Heart: Regular rate and rhythm, S1 and S2 normal, no murmur, rub or gallop Abdomen: Soft, non-tender, bowel sounds active all four quadrants, no masses, no organomegaly Extremities: Extremities normal, atraumatic, no cyanosis or edema Pulses: 2+ and symmetric all extremities Skin: Skin color, texture, turgor normal, no rashes or lesions Lab/Radiology/Diagnostic Review: Lab results in the last 24 hours: No results found for this or any previous visit (from the past 24hour(s)). No results found. Assessment /Plan As mentioned above, proceed with ERCP. The risk of bleeding, perforation, blood transfusion, pancreatitis, surgery and were explained to the patient who agreed to proceed. documented in this encounter Plan of Treatment Pending Results Name Type Priority Associated Diagnoses Date /Time FL ERCP Endo Imaging Procedure IP Routine 1:06 PM CDT documented as of this encounter Procedures Procedure Name Priority Date/Time Associated Diagnosis Comments ERCP IP Routine 10/19/2019 1:06 PM CDT ERCP IP Routine 10/19/2019 1:06 PM CDT ERCP 10/19/2019 10:10 AM CDT documented in this encounter Results * ERCP (10/19/2019 10:10 AM CDT) Anatomical Region Laterality Modality Other Narrative Procedure Note Buddy Weir MD - 10/19/2019 10:10 AM CDT ENDOSCOPY LAB Patient Name: Abena Giron Procedure Date: 10/19/2019 10:10 AM Admit Type: Outpatient Room: [facility] Date of : 1940 Instrument Name: [id number] Gender: Female Note Status: Finalized Procedure: ERCP Indications: Bile duct stone(s), Abdominal pain of suspected biliary origin, Abdominal pain in the right upper quadrant, Biliary dilation on Ultrasound, Evaluation and possible treatment of bile duct stone(s) Providers: Buddy Weir M.D. Referring MD: Ronald Castrejon M.D. Medicines: General Anesthesia Complications: No immediate complications. Estimated blood loss:None Estimated Blood Loss: Estimated blood loss: none. Procedure: The benefits, risks, and alternatives to the procedureand sedation were discussed and informed consent wasobtained. The Enteroscope was introduced through the mouth, andused to inject contrast into and used to inject contrastinto the bile, dorsal and ventral pancreatic ducts. The ERCP was accomplished without difficulty. The patienttolerated the procedure well. Findings: Fibrotic and prominent major papilla with andrew-ampullarydiverticulum. Dilated common bile duct to 14 mm s/p cholecystectomy with delayed contrast emptying. Biliary sphincterotomy and balloon sweep of microlithiasis were done with good bile drainage. Pancreatic duct was normal. Impression: Fibrotic and prominent major papilla withperi-ampullary diverticulum. Dilated common bile duct to 14 mm s/p cholecystectomywith delayed contrast emptying. Biliary sphincterotomy and balloon sweep ofmicrolithiasis were done with good bile drainage. Pancreatic duct was normal. Recommendation: - Avoid aspirin and nonsteroidal anti-inflammatory medicines for 3 days. - Clear liquid diet today and low fat diet tomorrow. - Tramadol 50-100 mg po q 4-6 hrs prn abdominal pain. - Return to GI clinic in 4 weeks. - If abdominal pain, nausea, vomiting, black loosestool or you are concern of symptoms, please contact me at [phone] or go to the emergency room Attending Participation: I personally performed the entire procedure. Buddy Weir M.D. Buddy Weir M.D. 10/19/2019 1:11:36 PM Number of Addenda: 0 Note Initiated On: 10/19/2019 10:10 AM Scope In: Scope Out: Buddy Weir MD ENDOSCOPY PROCEDURES Final Result documented in this encounter Visit Diagnoses Not on filedocumented in this encounter Administered Medications Inactive Administered Medications - up to 3 most recent administrations Medication Order MAR Action Action Date Dose Rate Site HYDROmorphone (DILAUDID) injection 1 mg 1 mg, intravenous, Administer over 2 Minutes, Once, On Fri10/19/19 at 1345, For 1 dose, Recovery (GI), Notify MD of pain score greater than 4., Indications: PainIndications:Pain Given 10/19/2019 2:34 PM CDT 1 mg Lactated Ringer's (LR) infusion 30 mL/hr, intravenous, Continuous, Starting on Fri10/19/19 at 1215, Pre-Procedure (GI) New Bag 10/19/2019 12:02 PM CDT 30 mL/hr 30 mL/hr LORazepam (ATIVAN) injection 1 mg 1 mg, intravenous, Every 30 min PRN, abdominal pain or spasms, Starting on Fri10/19/19 at 1306, For 2 doses, Recovery (GI), For IV administration, dilute with equal volume of 0.9% sodium chloride. Do not exceed a rate of 2 mg/minute, Indications: Muscle Spasm with PainIndications:Muscle Spasm with Pain Given 10/19/2019 1:45 PM CDT 1 mg ondansetron (ZOFRAN) injection 4 mg 4 mg, intravenous, Administer over 2 Minutes, Every 30 min PRN, nausea, vomiting, Starting on Fri10/19/19 at 1306, For 2 doses, Recovery (GI), Indications: Nausea and VomitingIndications:Nausea and Vomiting Given 10/19/2019 2:28 PM CDT 4 mg Given 10/19/2019 1:29 PM CDT 4 mg documented in this encounter Historical Medications * This list may reflect changes made after this encounter. turmeric root extract 500 mg capsule Take 1 capsule by mouth daily 07/18/2022 Lactobacillus acidophilus 10 billion cell capsule Take 1 capsule by mouth daily 07/18/2022 zinc 50 mg tablet Take 50 mg by mouth daily 07/18/2022 added in this encounter Active and Recently Administered Medications Times are shown in CDT. Scheduled Medication Order 10/17/2019 10/18/2019 10/19/2019 HYDROmorphone (DILAUDID) injection 1 mg (COMPLETED)(Linked Group 1) 1 mg, intravenous, Administer over 2 Minutes, Once, On Fri10/19/19 at 1345, For 1 dose, Recovery (GI), Notify MD of pain score greater than 4., Indications: Pain 1434 (Given - Provid er: Lucinda Cary RN) ondansetron (ZOFRAN) injection 4 mg 4 mg, intravenous, Administer over 2 Minutes, Once, On Fri10/19/19 at 1500, For 1 dose, Phase I & Post-op Floor 1500 (Due) Continuous Medication Order 10/17/2019 10/18/2019 10/19/2019 Lactated Ringer's (LR) infusion 30 mL/hr, intravenous, Continuous, Starting on Fri10/19/19 at 1215, Pre-Procedure (GI) 1202 (New Bag - Prov ider: Yamile Cain RN)1302 (Stopped - Provider: Julian Ramon CRNA)1505 (Stopped - Provider: Lucinda Cary, BRAYAN) sodium chloride 0.9% infusion 125 mL/hr, intravenous, Continuous, Starting on Fri10/19/19 at 1345, Recovery (GI) 1345 (Due) PRN Medication Order 10/17/2019 10/18/2019 10/19/2019 LORazepam (ATIVAN) injection 1 mg 1 mg, intravenous, Every 30 min PRN, abdominal pain or spasms, Starting on Fri10/19/19 at 1306, For 2 doses, Recovery (GI), For IV administration, dilute with equal volume of 0.9% sodium chloride. Do not exceed a rate of 2 mg/minute, Indications: Muscle Spasm with Pain 1345 (Given - Provid er: Geovanna Machado RN) ondansetron (ZOFRAN) injection 4 mg (COMPLETED) 4 mg, intravenous, Administer over 2 Minutes, Every 30 min PRN, nausea, vomiting, Starting on Fri10/19/19 at 1306, For 2 doses, Recovery (GI), Indications: Nausea and Vomiting 1329 (Given - Provid er: Geovanna Machado RN)1428 (Given - Provider: Lucinda Cary, BRAYAN) Linked Groups Order Group 1: HYDROmorphone (DILAUDID) injection 1 mg (COMPLETED)Jump to med 1 mg, intravenous, Administer over 2 Minutes, Once, On Fri10/19/19 at 1345, For 1 dose, Recovery (GI), Notify MD of pain score greater than 4., Indications: Pain Or fentaNYL (SUBLIMAZE) preservative free injection 25 mcg (COMPLETED) 25 mcg, intravenous, Once, On Fri10/19/19 at 1345, For 1 dose, Recovery (GI), Administer fentaNYL if allergy to HYDROmorphone. Notify MD of pain score greater than 4., Indications: Pain documented in this encounter Orders Medications Ordered That Flaco ht Not Have Been Administered Count Last Ordered Date First Ordered Date fentaNYL (SUBLIMAZE) preserv ative free injection 25 mcg 1 10/19/2019 ondansetron (ZOFRAN) injection 4 mg 1 10/18 sodium chloride 0.9% infusion 1 10/19/2019 documented in this encounter Care Teams Customer Relations Representative Relationship Specialty Start Date End Date Ronald Castrejon MD PCP - General 06/21/16 07/17/22 Reynaldo Flannery DO Consulting Physician Cardiology 09/26/17 Guanakito Holland MD Consulting Physician Cardiovascular Disease 07/29/18 documented as of this encounter
--- OUTSIDE RECORDS SUMMARY | 2024-04-11 06:38 | XMS_ITS | Encounter Summary ---
Author Organization [facility] Address [address] [facility] [address] [place] [address] Care Team Providers Care Pipe Joints Supervisor Name Role Phone Ronald Castrejon MD Primary Care Provider [phone] Reynaldo Flannery DO Unavailable [phone] Guanakito Holland MD Unavailable [phone] Encounter Details Date Type Department Care Team (Late st Contact Info) Description 01/24/2020 Telephone [facility] [address] [facility] [address] [place] [address] Ronald Castrejon MD [address] [place] [address] [address] [place] [id number] Social History Tobacco Use Types Packs/Day Years [...] and Family Once a week 03/05/2019 Attends Anabaptism Services Not on file 03/05 Active Member [...] on file 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 urmila Centeno her car designer last month does not wish to have any further lab repeated this month before she sees me social skip are lab and I will see her as planned this month will decide on further blood test if necessary at that time RITY SYSTEMS ENGINEER documented in this encounter Plan of Treatment Not on file documented as of this encounter Visit Diagnoses Not on filedocumented in this encounter Care Teams Pipe Joints Supervisor Relationship Specialty Start Date End Date Ronald Castrejon MD PCP - General 06/21/16 07/17/22 Ryenaldo Flannery DO Consulting Physician Cardiology 09/26/17 Guanakito Holland MD Consulting Physician Cardiovascular Disease 07/29/18 documented as of this encounter
--- OUTSIDE RECORDS SUMMARY | 2024-04-11 06:38 | XMS_ITS | Encounter Summary ---
Author Organization [facility] Address [address] [facility] [address] [place] [address] Care Team Providers Care Regulatory Affairs Manager Name Role Phone Ronald Castrejon MD Primary Care Provider Reynaldo Flannery DO Unavailable [phone] Guanakito Holland MD Unavailable Annel Curiel RN Unavailable [phone] Encounter Details Date Type Department Care Team (Late st Contact Info) Description 02/15/2019 12:15 PM MIDDLEWARE ARCHITECT Lab [facility] [address] [facility] [address] [place] [address] Abdominal pain, unspecified abdominal location Social History Tobacco Use Types Packs/Day Years [...] as of this encounter Visit Diagnoses Diagnosis Abdominal pain, unspecified abdominal location documented in this encounter Care Teams Regulatory Affairs Manager Relationship Specialty Start Date End Date Ronald Castrejon MD PCP - General 06/21/16 07/17/22 Reynaldo Flannery DO Consulting Physician Cardiology 09/26/17 Guanakito Holland MD Consulting Physician Cardiovascular Disease 07/29/18 Annel Curiel, RN [address] [place] [id number] Access Liaison 11/18/18 05/16/19 documented as of this encounter
--- OUTSIDE RECORDS SUMMARY | 2024-04-11 06:38 | XMS_ITS | Encounter Summary ---
Author Organization [facility] Address [address] [place] [address] Care Team Providers Care Manager Intensive Care Unit Name Role Phone Ronald Castrejon MD Primary Care Provider [phone] Reynaldo Flannery DO Unavailable [phone] Guanakito Holland MD Unavailable [phone] Encounter Details Date Type Department Care Team (Late st Contact Info) Description 01/06/2020 3:05 PM CDT Lab [facility] [address] [place] [address] Reynaldo Flannery, DO [address] [facility] [address] [place], [place] [address] Discharge Disposition: Discharge to home or self [...] and Family Once a week 03/05/2019 Attends [employer] [facility] Not on file 03/05 Active Member [...] on file Legal Sex Female 11:18 AM 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 Gender Identity Female 10/09/2022 9:08 AM CDT Sexual Orientation Choose not to disclose 2022 9:08 AM CDT documented as of this encounter Discharge Disposition Disposition Code Departure Means Destination Discharge to home or self care documented in this encounter Plan of Treatment Not on file documented as of this encounter Procedures Procedure Name Priority Date/Time Associated Diagnosis Comments EGFR Routine 01/06/2020 2:55 PM CDT documented in this encounter Results * eGFR (01/06/2020 2:55 PM CDT) Pathologist [facility] eGFR 83 mL/min/1.7 3 m2 ANDREW DAWN Comment: Interpretive Data Reference Interval Normal ?>/= 90 mL/min/1.73m2 Mildly decreased* ? 60 - 89 mL/min/1.73m2 Mildly to moderately decreased ?45 - 59 mL/min/1.73m2 Moderately to severely decreased ??30 - 44 mL/min/1.73m2 Severely decreased ?15 - 29 mL/min/1.73m2 Kidney Failure ?< 15 ??mL/min/1.73m2 *Relative to young adult level If -Albanian multiply value by 1.16. Estimated glomerular filtration rate is determined by the CKD-EPI equation recommended by the National Kidney Foundation (KDIGO 2012 Clinical Practice Guideline for the Evaluation and Management of Chronic Kidney Disease. Kidney Intnl Suppl Mar 2012;3:1). The CKD-EPI equation should not be used for patients with unstable renal function and has not been validated in children and those over 70. Current interpretive data was last reviewed 2015. Blood specimen (specimen) 01/06/2020 2:55 PM CDT 01/06/2020 4:17 PM CDT us Reynaldo Flannery DO LAB BLOOD ORDERABLES Fin al Result Performing Organization Address City/State/[facility] [place] Phone Number [facility] [address] [facility] Department [place] [address] documented in this encounter Visit Diagnoses Not on filedocumented in this encounter Care Teams Manager Intensive Care Unit Relationship Specialty Start Date End Date Ronald Castrejon MD PCP - General 06/21/16 07/17/22 Reynaldo Flannery DO Consulting Physician Cardiology 09/26/17 Guanakito Holland MD Consulting Physician Cardiovascular Disease 07/29/18 documented as of this encounter
--- OUTSIDE RECORDS SUMMARY | 2024-04-11 06:38 | XMS_ITS | Encounter Summary ---
Author Organization [facility] Address [address] [place] [address] Care Team Providers Care Low Emission Automobile Designer Name Role Phone Ronald Castrejon MD Primary Care Provider [phone] Reynaldo Flannery DO Unavailable [phone] Guanakito Holland MD Unavailable Annel Curiel RN Unavailable [phone] Encounter Details Date Type Department Care Team (Late st Contact Info) Description 12/17/2018 9:00 AM CDT [facility] [address] [place] [address] [address] [place] [address] B12 deficiency Social History Tobacco Use Types Packs/Day Years Used Date Smoking Tobacco: Former Cigarettes Q uit: 1975 Smokeless Tobacco: Never Alcohol Use Standard Drinks/Week Comments No 0 (1 standard drink = 0.6 oz pur e alcohol) PHQ-2 Answer Date Recorded PHQ-2 Score 0 11/12/2018 Comments No Sex and Gender Information Value Date Recorded Sex Assigned at Not on file Legal Sex Female 11:18 AM DESIGNER ARCHITECT Gender Identity Female 10/09/2022 9:08 AM CDT Sexual Orientation Choose not to disclose 07/19/ 2023 9:08 AM CDT documented as of this encounter Plan of Treatment Not on file documented as of this encounter Visit Diagnoses Diagnosis B12 deficiency documented in this encounter Care Teams Low Emission Automobile Designer Relationship Specialty Start Date End Date Ronald Castrejon MD PCP - General 06/21/16 07/17/22 Reynaldo Flannery DO Consulting Physician Cardiology 09/26/17 Guanakito Holland MD Consulting Physician Cardiovascular Disease 07/29/18 Annel Curiel, BRAYAN [address] [address] Sweatband Perforator 11/18/18 05/16/19 documented as of this encounter
--- OUTSIDE RECORDS SUMMARY | 2024-04-11 06:38 | XMS_ITS | Encounter Summary ---
Author Organization [facility] Address [address] [facility] [address] [place] [address] Care Team Providers Care Instrument Operator Name Role Phone Ronald Castrejon MD Primary Care Provider [phone] Reynaldo Flannery DO Unavailable [phone] Guanakito Holland MD Unavailable [phone] Encounter Details Date Type Department Care Team (Late st Contact Info) Description 01/19/2020 Orders Only [facility] Information Management [address] [place] [address] Scanning, Provider Social History Tobacco Use Types Packs/Day Years [...] file Legal Sex Female 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 Gender Identity Female 10/09/2022 9:08 AM CDT Sexual Orientation Choose not to disclose 2022 9:08 AM CDT documented as of this encounter Plan of Treatment Not on file documented as of this encounter Procedures Procedure Name Priority Date/Time Associated Diagnosis Comments SCAN - LABS 01/19/2020 11:30 AM CDT documented in this encounter Results * SCAN - LABS (01/19/2020 11:30 AM CDT) us Provider Scanning Final Result documented in this encounter Visit Diagnoses Not on filedocumented in this encounter Care Teams Instrument Operator Relationship Specialty Start Date End Date Ronald Castrejon MD PCP - General 06/21/16 07/17/22 Reynaldo Flannery DO Consulting Physician Cardiology 09/26/17 Guanakito Holland MD Consulting Physician Cardiovascular Disease 07/29/18 documented as of this encounter
--- OUTSIDE RECORDS SUMMARY | 2024-04-11 06:38 | XMS_ITS | Encounter Summary ---
Author Organization [facility] Address [address] [facility] [address] [place] [address] Care Team Providers Care Machine Featheredger And Reducer Name Role Phone Ryan Castrejon MD Primary Care Provider [phone] Reynaldo Flannery DO Unavailable [phone] Guanakito Holland MD Unavailable [phone] Reason for Referral * Diagnostic Imaging (Routine) - Closed Specialty Diagnoses / Procedures Referred By Danita moctezuma Referred To Contact Diagnoses Visit for screening mammogram Essential hypertension Mixed hyperlipidemia Procedures Screening Mammogram Bilateral W Ryan Martinez MD Phone: tel: fax: [address] [address] Referral ID Status Reason Start Date Expiration Date Visits Re quested Visits Authorized [id number] Closed 01/31/2020 03/01/2021 1 1 ONAL SERVICE MANAGER Encounter Details Date Type Department Care Team (Late st Contact Info) Description 01/31/2020 Orders Only [facility] [address] [facility] [address] [place] [address] Ryan Castrejon MD [address] [place] [address] [place] [id number] Visit for screening mammogram (Primary Dx); Essential hypertension; Mixed hyperlipidemia; Vitamin D deficiency Social History Tobacco Use Types Packs/Day [...] and Family Once a week 03/05/2019 Attends [employer] Services Not on file 03/05 Active Member [...] on file Legal Sex Female 11:18 AM REGIONAL SERVICE MANAGER Gender Identity Female 10/09/2022 9:08 AM CDT Sexual Orientation Choose not to disclose 2022 9:08 AM CDT documented as of this encounter Progress Notes * Jose Andrade MA - 01/31/2020 2:56 PM CST Printed Epic orders given to pt for [facility] ONAL SERVICE MANAGER documented in this encounter Plan of Treatment Scheduled Orders Name Type Priority Associated Diagnoses Orde r Schedule CBC with auto differential Lab Routine Essential hypertension Mixed hyperlipidemia Expected: 01/18/2021, Expires: 01/30/2021 Comprehensive metabolic panel Lab Routine Essential hypertension Mixed hyperlipidemia Expected: 01/18/2021, Expires: 01/30/2021 Urinalysis reflex to microscopic and culture Urine, clean voided Microbiology Routine Essential hypertension Mixed hyperlipidemia Expected: 01/18/2021, Expires: 01/30/2021 Vitamin D 25 hydroxy Lab Routine Vitamin D deficiency Expected: 01/18/2021, Expires: 01/30/2021 Lipid panel with reflex to direct LDL Lab Routine Essential hypertension Mixed hyperlipidemia Expected: 01/30/2021 (Approximate), Expires: 01/30/2021 documented as of this encounter Results * Screening Mammogram Bilateral W Jose (04/06/2020 1:21 PM REGIONAL SERVICE MANAGER) Anatomical Region Laterality Modality Breast Bilateral Mammography 04/06/2020 2:09 PM REGIONAL SERVICE MANAGER Impressions 04/06/2020 3:13 PM REGIONAL SERVICE MANAGER There is no mammographic evidence of malignancy. A 1 year screening mammogram is recommended. BI-RADS: 2 - Benign. The patient will be entered into a reminder system with a target due date of 1 year for her next mammogram. Electronically signed by: Micaela Jang MD Narrative 04/06/2020 3:13 PM REGIONAL SERVICE MANAGER EXAMINATION: SCREENING MAMMOGRAM BILATERAL W JOSE ORDERING HEALTHCARE PROVIDER: RYAN CASTREJON HISTORY: Routine [...] encounter Visit Diagnoses Diagnosis Visit for screening mammogram- Primary Essential hypertension Unspecified essential hypertension Mixed hyperlipidemia Vitamin D deficiency Visit for screening mammogram Essential hypertension Unspecified essential hypertension Mixed hyperlipidemia documented in this encounter Care Teams Machine Featheredger And Reducer Relationship Specialty Start Date End Date Ryan Castrejon MD PCP - General 06/21/16 07/17/22 Reynaldo Flannery DO Consulting Physician Cardiology 09/26/17 Guanakito Holland MD Consulting Physician Cardiovascular Disease 07/29/18 documented as of this encounter
--- OUTSIDE RECORDS SUMMARY | 2024-04-11 06:38 | XMS_ITS | Encounter Summary ---
Author Organization [facility] Address [address] [facility] [address] [place] [address] Care Team Providers Care Marker Assembler Name Role Phone Ronald Castrejon MD Primary Care Provider [phone] Renyaldo Flannery DO Unavailable [phone] Guanakito Holland MD Unavailable [phone] Reason for Visit * Reason Comments Medicare Annual Wellness Visit Sai moctezuma [facility] Encounter Details Date Type Department Care Team (Late st Contact Info) Description 01/31/2020 2:00 PM SUPPORT SPECIALIST Office Visit [facility] [address] [place] [address] [address] [place] [address] Ronald Castrejon MD [address] [place] [address] [address] [place] [address] Medicare annual wellness visit, subsequent (Primary Dx); Class 1 obesity with body mass index (BMI) of 30.0 to 30.9 in adult, unspecified obesity type, unspecified whether serious comorbidity present Social History Tobacco Use Types Packs/Day Years [...] file Legal Sex Female 11:18 AM SUPPORT SPECIALIST Gender Identity Female 10/09/2022 9:08 AM CDT Sexual Orientation Choose not to disclose 2022 9:08 AM CDT documented as of this encounter Last Filed Vital Signs Vital Sign Reading Time Taken Comments Blood Pressure 110/72 01/31/2020 2:26 PM SUPPORT SPECIALIST Pulse 80 01/31/2020 2:26 PM SUPPORT SPECIALIST Temperature - - Respiratory Rate 20 01/31/2020 2:26 PM SUPPORT SPECIALIST Oxygen Saturation - - Inhaled Oxygen Concentration - - Weight 73 kg (161 lb) 01/31/2020 2:26 PM SUPPORT SPECIALIST Height 154.9 cm (5' 1 ) 01/31/2020 2:26 PM SUPPORT SPECIALIST Body Mass Index 30.42 01/31/2020 2:26 PM SUPPORT SPECIALIST documented in this encounter Progress Notes * Ronald Castrejon MD - 01/31/2020 2:00 PM CST Subjective/Objective Patient ID: Abena Giron is a 79 y.o. female. Chief Complaint Medicare Annual Wellness Visit Subsequent (MCW) HPI 79-year-old seen today for well examination overall she states she feels good she is due for mammogram she states he has had 1 2 years states she did in 1 have 1 last year but she states she will get1 this year she had a colonoscopy up in [facility] with Dr. Delvis stacy and took this year in total comeback in 5 years she is due for bone density but declines any further bone density testing Her nursing coordinator Dr. Edmondson is going to Center to another specialist at [facility] for her chronic nausea currently she is on low carb low-fat diet she has chronic nausea after eating there wassome concern about mesenteric panniculitis noted on CT exam but she states Dr. Edmondson does not think that is the culprit she thinks she states that he thinks it is probably the gallbladder Use all vaccinations risk benefits of vaccines discussed with but she declines Patient has intact uterus and ovaries but declines any OBGYN care she states her vagina has basically grown shut The patient is for 5 years 4 daughters and 2 sons she was for 50 years she sees hereye doctor regularly she sees Dr. urmila Centeno her study hall supervisor wax pattern repairer on regular basis she does have a pacemaker for sick sinus syndrome and paroxysmal atrial fib she had a cardiac [place] in 2017 history of coronary disease with stent placement she quit smoking 1975 smoked half pack a day for about 15 years she rarely drinks any alcohol she refuses statin therapy she has history of pre diabetes her some question the past whether she had abdominal aortic aneurysm but CT recentlyrevealed no aneurysm but did reveal marked calcification in the aorta Allergies to codeine causes some rash penicillin may cause rash She has history of coronary disease with stent placement x1 history of atrial fib loop recorder implanted 2016 [place] 2016 previous cholecystectomy Review of Systems Review of Systems neurological no headaches no syncope no seizure visual changes or paresthesias cardio no chest pain palpitations or exertional symptoms pulmonary no shortness of breath cough wheeze hemoptysis GI no melena no hematochezia pain nausea change in stools genitourinary no dysuria hematuria pain or change in habits musculoskeletal no joint swelling deformity muscle pain or weakness psych no anxiety depression or suicide ideation hematological no bleeding or bruising Vitals: 01/31/20 1426 BP: 110/72 BP Location: Left arm Patient Position: Sitting Pulse: 80 Resp: 20 Weight: 73 kg (161 lb) Height: 154.9 cm (5' 1 ) Physical Exam HEAD: normocephalic and atraumatic the pupils are equal round and reactive to light accommodation EOMI fundi and TMs are normal tongue and uvula is midline NECK: supple without bruits, adenopathy, masses or JVD there is no thyromegaly or nodules CARDIO: S1-S2 without murmurs gallops clicks or rubs THORAX : clear to a and P no rales rhonchi or wheezes no axillary adenopathy ABDOMEN : soft and nontender with normal bowel sounds no enlargement of liver spleen there is no bruits or masses EXTREMITIES: no edema or cyanosis with good pulses throughout full range of motion throughout NEURO : cranial nerves 2-12 were intact muscle strength is 5 5 throughout DTRs are 2/4 throughout toe signs are downgoing gait normal SKIN no suspicious lesions ecchymosis or petechiae Assessment/Plan Diagnoses and all orders for this visit: Medicare annual wellness visit, subsequent (Primary) Class 1 obesity with body mass index (BMI) of 30.0 to 30.9 in adult, unspecified obesity type, unspecified whether serious comorbidity present Will schedule her mammogram for this fall get laboratory workup before she sees me back in 1 year she states she is going to be seen her GI specialist and study hall supervisor on a regular basis and she willfollow-up with cutting inspector as well Side effects, risks, interactions reviewed with patient. Indications for testing discussed. Any further problems to contact us. She was told what to look out for and verbalized understanding. The patient was given the opportunity to have all questions answered today and was in agreement with the plan of care. ORT SPECIALIST documented in this encounter Plan of Treatment Not on file documented as of this encounter Visit Diagnoses Diagnosis Medicare annual wellness visit, subsequent- Primary Class 1 obesity with body mass index (BMI) of 30.0 to 30.9 in adult, unspecified obesity type, unspecified whether serious comorbidity present documented in this encounter Discontinued Medications Medication Sig Discontinue Reason Start Date End Da te famotidine (PEPCID) 40 mg tablet Take 1 tablet (40 mg total) by mouth daily Therapy completed 02/15/2019 01/31/2020 HYDROcodone-acetaminophe n (NORCO) 5-325 mg per tabletIndications:Pain Take 0.5 tablets by mouth every 6 (six) hours as needed for pain (1 tablet PO PRN pain) Therapy completed 03/14/2019 01/31/2020 traMADoL (ULTRAM) 50 mg tablet Take 1 tablet (50 mg total) by mouth every 6 (six) hours as needed for pain Therapy completed 10/19/2019 01/31/2020 furosemide (LASIX) 40 mg tablet Dose adjustment 06/07/2019 01/31/2020 documented as of this encounter Historical Medications * This list may reflect changes made after this encounter. furosemide (LASIX) 20 mg tablet Take 20 mg by mouth daily 12/30/2019 09/19/2021 Entresto 24-26 mg tablet 01/11/2020 08/12/2022 ondansetron (ZOFRAN) 4 mg tablet 12/29/2019 07/18/2022 added in this encounter Care Teams Marker Assembler Relationship Specialty Start Date End Date Ronald Castrejon MD PCP - General 06/21/16 07/17/22 Reynaldo Flannery DO Consulting Physician Cardiology 09/26/17 Guanakito Holland MD Consulting Physician Cardiovascular Disease 07/29/18 documented as of this encounter
--- OUTSIDE RECORDS SUMMARY | 2024-04-11 06:38 | XMS_ITS | Encounter Summary ---
Author Organization [facility] Address [address] [facility] [address] [facility] [address] [place] [address] Care Team Providers Care Spanisher Name Role Phone Ronald Castrejon MD Primary Care Provider [phone] Reynaldo Flannery DO Unavailable Guanakito Holland MD Unavailable Annel Curiel RN Unavailable Encounter Details Date Type Department Care Team (Late st Contact Info) Description 04/22/2019 Orders Only [place] Photostat Operator Helper [address] [facility] [address] [place] [address] Guanakito Holland MD [address] [facility] [address] [place] [address] Pacemaker (Primary Dx) Social History Tobacco Use Types [...] and Family Once a week 03/05/2019 Attends [employer] Services Not on file 03/05 Active Member [...] on file Legal Sex Female 11:18 AM HOTEL MAID Gender Identity Female 10/09/2022 9:08 AM CDT Sexual Orientation Choose not to disclose 2022 9:08 AM CDT documented as of this encounter Plan of Treatment Not on file documented as of this encounter Visit Diagnoses Diagnosis Pacemaker- Primary Cardiac pacemaker in situ documented in this encounter Care Teams Spanisher Relationship Specialty Start Date End Date Ronald Castrejon MD PCP - General 06/21/16 07/17/22 Reynaldo Flannery DO Consulting Physician Cardiology 09/26/17 Guanakito Holland MD Consulting Physician Cardiovascular Disease 07/29/18 Annel Curiel, BRAYAN [address] [facility] [address] [place] [address] Analysis Intern 11/18/18 05/16/19 documented as of this encounter
--- OUTSIDE RECORDS SUMMARY | 2024-04-11 06:38 | XMS_ITS | Encounter Summary ---
Author Organization [facility] Healthcare Address [address] [place] [address] Care Team Providers Care Spool Salvager Name Role Phone Ronald Castrejon MD Primary Care Provider [phone] Reynaldo Flannery DO Unavailable Guanakito Holland MD Unavailable [phone] Encounter Details Date Type Department Care Team (Late st Contact Info) Description 10/19/2019 12:22 PM CDT Anesthesia Event [facility] [place] [id number] Dre Castellon MD [address] [place] [id number] Joe Bower MD [facility] [place] [address] Anesthesia Record Procedure Summary Procedure Name Responsible Anesthesiologist Anesthesia Start Time Anesthesia Stop Time ENDO ENDOSCOPIC RETROGRADE CHOLANGIOPANCREATOGRAPHY REMOVAL STONES Dre Castellon MD 10/19/19 1222 10/19/19 1317 Events Date Time Event Comment 10/19/2019 1155 1222 An Start 1224 In Room 1225 An Start Data 1232 An Induction The patient was reevaluated immediately before moderate or deep sedation use and before anesthesia induction. 1234 An Intubation 1238 Patient Positioned Prone 1241 Anesthesia Ready 1241 Quick Note Blood pressure cuff not reading. Repositioned to leg and distal radius until accurate reading obtained 1243 Proc Start 1302 Proc Fin 1306 Out of Room 1308 An Extubation 1310 an stop data 1317 Handoff to RN I completed my handoff [...] Patient disposition at the time of handoff: PACU 1317 An Stop 1318 Release from care Meds Name Total propofol 140 mg fentaNYL 50 mcg ePHEDrine 50 mg phenylephrine (XAVIER-SYNEPHRINE) 1 mg in s odium chloride 0.9% 10 mL solution 600 mcg succinylcholine 75 mg lidocaine (cardiac) syringe 2 % 5 mL Lactated Ringer's (LR) infusion 500 mL * Agents Name O2 Sevoflurane Desflurane Inspired Desflurane Inspired Sevoflurane * Blood No blood administrations on file. Lines, Drains, and Airways Type Details Placement Removal Peripheral IV Placement Date: 09/22 11/10; Placement Time: 1201; Catheter Size: 20 G; Orientation: Right; Location: Wrist; Site Prep: Chlorhexidine; Insertion Attempts: 1; Patient Tolerance: Tolerated well; Removal Date: 10/19/19; Removal Time: 1525; Removal Reason: Therapy completed 10/19/19 1201 by Yamile Cain RN 10/19/19 1525 by Lucinda Cary RN ETT Placement Date: 09/22 11/10; Placement Time: 1247 (created via procedure documentation); Mask Ventilation: 1; Technique: Direct laryngoscopy; Type: ETT - single; Single Lumen Tube Size: 7 mm; Cuffed: Yes; Laryngoscope: Escobar; Blade Size: 3; Location: Oral; Grade View: Grade I; Insertion Attempts: 1; Placement Verification: Auscultation, Capnometry; Removal Date: 10/19/19; Removal Time: 1308 10/19/19 1247 by Julian Ramon CRNA 10/19/19 1308 by Julian Ramon CRNA documented in this encounter Social History Tobacco [...] and Family Once a week 03/05/2019 Attends [employer] Not on file 03/05 Active Member [...] on file 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 Gender Identity Female 10/09/2022 9:08 AM CDT Sexual Orientation Choose not to disclose 2022 9:08 AM CDT documented as of this encounter OR Notes * Anesthesia Postprocedure Evaluation - Julian Ramon CRNA - 10/19/2019 1:17 PM CDT Patient: Abena Giron Procedure Summary Date: 10/19/19 [place] / [place] [facility] Anesthesia Start: 1222 Anesthesia Stop: 1317 Procedures: ENDO ENDOSCOPIC RETROGRADE CHOLANGIOPANCREATOGRAPHY REMOVAL STONES (N/A ) Endo Add On Endoscopic Retrograde Cholangiopancreatography Sphincterotomy/Papillotomy (N/A ) Diagnosis: (r10.11) Provider: Buddy Weir MD Responsible Provider: Dre Castellon MD Anesthesia Type: general/TIVA ASA Status: 3 Anesthesia Type: general/TIVA Last vitals BP 106/53 Pulse 76 Temp (!) 35.7 ??C (96.3 ??F) Resp 10 SpO2 100% Anesthesia Post Evaluation Patient location: GI recovery area. Patient participation: complete - patient participated Level of consciousness: arouses preconstruction manager and follows simple commands Pain management: adequate Airway patency: adequate Anesthetic complications: no Cardiovascular status: acceptable Respiratory status: acceptable Hydration status: acceptable Pt is: normothermic Nausea/Vomiting status: none * Anesthesia Procedure Notes - Julian Ramon CRNA - 10/19/2019 12:46 PM CDTAssociated Order(s): Airway Airway Patient location: OR Urgency: elective Indications for airway management: anesthesia Difficult airway: no Staff: Placed by: PURLER: Julian Ramon CRNA Airway prep: Preoxygenated: yes Patient position: sniffing Mask difficulty assessment: 1 - vent by mask Sedation level during airway: GA Final airway details: Final airway type: endotracheal airway Tube type: ETT ETT size: 7.0 mm Cuffed: yes Technique used for successful ETT placement: direct laryngoscopy Devices/Methods used in placement: intubating stylet Insertion site: oral Blade type: Escobar Blade size: 3 Cormack-Lehane (direct): grade I - full view of glottis Cuff volume: 7 mL Cuff inflated with: air Placement verified by: auscultation and CO2 detection Airway secured with: silk tape Number of attempts: 1 * Anesthesia Preprocedure Evaluation - Joe Bower MD - 10/19/2019 11:51 AM CDT Images from the original note were not included. Anesthesia Evaluation Abena Giron is a 79 y.o. female Procedure(s): ERCP * No Diagnosis Codes entered * HISTORY Past Medical History Information obtained from: patient and chart. Cardiovascular + Hypertension + Hyperlipidemia + CAD + IN + CHF + Current valvular disease - MR - moderate; + Atrial fibrillation/flutter - + Other arrhythmia - bradycardia. + Pacemaker/ICD - pacemaker of unknown configuration (W/O ICD). + PAD/Aorta disease - current AAA. Comments: TTE 04/14/2019 EF 40%, mod MR Respiratory + Sleep apnea (GENNY) Gastrointestinal + GERD Musculoskeletal/Pain + Osteoarthritis Endocrine / Other + Obesity (BMI >30) Patient Active Problem List Diagnosis ??? Hypertension ??? Osteoarthritis ??? Hyperlipidemia ??? Coronary artery disease involving [place]nek coronary artery of [place]nek heart ??? Paroxysmal atrial fibrillation (CMS/HCC) ??? Chronic GERD ??? Anxiety ??? Abdominal aortic aneurysm (AAA) without rupture (CMS/HCC) ??? Atrial fibrillation with rapid ventricular response (CMS/HCC) ??? B12 deficiency ??? NSTEMI (non-ST elevated myocardial infarction) (CMS/HCC) ??? Sick sinus syndrome (CMS/HCC) ??? GENNY (obstructive sleep apnea) Past Medical History: Diagnosis Date ??? Adiposity obesity ??? Aortic aneurysm (CMS/HCC) Pt states found by ultrasound upper abd. ??? Arthritis ??? Atrial fibrillation (CMS/HCC) ??? Cancer (CMS/HCC) ??? CHF (congestive heart failure) (CMS/HCC) ??? Colon polyp ??? Depression ??? Diverticulosis ??? Dysphagia ??? Gastroesophageal reflux disease GERD ??? History of loop recorder ??? HX OTHER MEDICAL Depression, with Anxiety ??? HX OTHER MEDICAL DJD ??? HX OTHER MEDICAL a.fib ??? HX OTHER MEDICAL Atrial Fibrillation; Outcome: heart ablation ??? Hyperlipidemia Hyperlipidemia ??? Hypertension Hypertension ??? Myocardial infarction (CMS/HCC) 2014 ??? Sleep apnea ??? Vertigo Past Surgical History: Procedure Laterality Date ??? ABDOMINAL SURGERY ??? CARDIAC PACEMAKER PLACEMENT ??? CATARACT EXTRACTION W/ INTRAOCULAR LENS IMPLANT Bilateral ??? CHOLECYSTECTOMY 1981 Cholecystectomy ??? EYE SURGERY ??? OTHER SURGICAL HISTORY Right 1979 partial oopherectomy ??? OTHER SURGICAL HISTORY heart cath with stent 2013 [place]/[facility] ??? OTHER SURGICAL HISTORY 2015 a.fib: loop recorder implanted ??? OTHER SURGICAL HISTORY 2016 Atrial Fibrillation: Cardiovascular Intervention (ablation) ??? SKIN BIOPSY OB History No obstetric history on file. Allergies Allergen Reactions ??? Phenobarbital Hallucinations ??? [...] Last Dose Start Date End Date Provider apixaban (ELIQUIS) 5 mg tablet Past Week 01/24/16 -- CECI White take 1 tablet by oral route 2 times every day artificial tears (SYSTANE) 0.3 % gel Past Week -- -- Historical Provider, ascorbic acid (vitamin C) 1,000 mg tablet Past Week -- -- Historical Provider, cholecalciferol (VITAMIN D-3) 2,000 unit tablet Past Week 12/06/15 -- CECI White take 1 tablet by oral route every day cyanocobalamin (Vitamin B-12) 100 mcg tablet Past Week -- -- Historical Provider, famotidine (PEPCID) 40 mg tablet 02/15/19 02/15/20 Ronald Castrejon MD Take 1 tablet (40 mg total) by mouth daily Patient not taking: Reported on 02/22/2019 fexofenadine (WALESKA) 180 mg tablet Past Week -- -- Historical Provider, fluticasone propionate (FLONASE) 50 mcg/actuation nasal spray Past Week 07/23/19 07/22/20 Princess Rios NP Administer 2 sprays into each nostril daily furosemide (LASIX) 40 mg tablet Past Week 06/07/19 -- Historical Provider, HYDROcodone-acetaminophen (NORCO) 5-325 mg per tablet 03/14/19 -- Jerry Robledo MD Take 0.5 tablets by mouth every 6 (six) hours as needed for pain (1 tablet PO PRN pain) Patient not taking: Reported on 07/23/2019 Lactobacillus acidophilus 10 billion cell capsule Past Week -- -- Historical Provider, MAGNESIUM ORAL Past Week -- -- Historical Provider, spironolactone (ALDACTONE) 25 mg tablet Past Week 07/01/19 -- Historical Provider, turmeric root extract 500 mg capsule Past Week -- -- Historical Provider, zinc 50 mg tablet Past Week -- -- Historical Provider, Flag for Review Taking? Last Dose Start Date End Date Provider ALPRAZolam (XANAX) 0.25 mg tablet 09/23/18 -- Ronald Castrejon MD Take 1 tablet (0.25 mg total) by mouth 2 (two) times a day as needed for anxiety Current Facility-Administered Medications: ??? Lactated Ringer's (LR) infusion, 30 mL/hr, intravenous, Continuous Social History Tobacco Use Smoking Status Former Smoker ??? Last attempt to quit: 1974 ??? Years since quittin.6 Smokeless Tobacco Never Used Substance and Sexual Activity Alcohol Use No Substance and Sexual Activity Drug Use No [...] Depression Brother Depression; ??? Hypertension Brother Hypertension; There were no vitals filed for this visit. PT: No results found for requested labs within last 720 hours. INR: No results found for requested labs within last 720 hours. APTT: No results found for requested labs within last 720 hours. Hgb A1C: No results found for requested labs within last 720 hours. CBC RBC: No results found for requested labs within last 720 hours. RDW: No results found for requested labs within last 720 hours. MCHC: No results found for requested labs within last 720 hours. MCH: No results found for requested labs within last 720 hours. MCV: No results found for requested labs within last 720 hours. Hct: No results found for requested labs within last 720 hours. Hgb: No results found for requested labs within last 720 hours. WBC: No results found for requested labs within last 720 hours. MPV: No results found for requested labs within last 720 hours. Platelets: No results found for requested labs within last 720 hours. RDW CV: No results found for requested labs within last 720 hours. RDW Sd: No results found for requested labs within last 720 hours. BMP Glucose: No results found for requested labs within last 720 hours. Calcium: No results found for requested labs within last 720 hours. Sodium: No results found for requested labs within last 720 hours. Potassium: No results found for requested labs within last 720 hours. CO2: No results found for requested labs within last 720 hours. Chloride: No results found for requested labs within last 720 hours. BUN: No results found for requested labs within last 720 hours. Creatinine: No results found for requested labs within last 720 hours. DOS Physical Exam Medical history, medications, and allergies reviewed. Attestation: This PAT evaluation 10/19/2019. Airway Exam: Mallampati: II Cervical ROM: FROM TM distance: >4 Jaw ROM: full Cardiovascular Exam: Rate: regular Rhythm: regular Pulmonary Exam: LCTA, bilat Dental Exam: Otherwise appears intact Anesthesia Plan ASA 3 My patient is approved for the Anesthesia Controlled Medication protocol when under care of a PURLER Planned anesthesia: General/TIVA Team communication plan: mask Induction: Induction: intravenous. Postoperative Plan: No plan for postoperative opioid use. No postoperative mechanical ventilation intended. Patient's planned disposition post procedure is Outpatient. Informed Consent: Discussed plan with PURLER. Anesthesia plan and risks discussed with patient. Plan and Consent Comments: Backup plan is a general anesthetic with or without an endotracheal tube or LMA as required Consent and Attending signature: I and/or my designee have discussed the anesthesia plan, benefits, possible alternatives, parental presence at time of induction (if indicated), and clinically relevant risks that may include dental injury, unintentional awareness, and/or other complications. The patient and/or parent/legal guardian understand, and agree to proceed. All questions answered. documented in this encounter Plan of Treatment Not on file documented as of this encounter Procedures Procedure Name Priority Date/Time Associated Diagnosis Comments AK AN PROCEDURE PLACEHOLDER Routine 10/19/2019 12:46 PM CDT AK AN ELECTIVE ENDOTRACHEAL AIRWAY Routine 10/19/2019 12:46 PM CDT documented in this encounter Results * AK AN ELECTIVE ENDOTRACHEAL AIRWAY, AK AN PROCEDURE PLACEHOLDER (10/19/2019 12:46 PM CDT) Julian Clancy CRNA - 10/19/2019 12:46 PM CDT Julian Ramon CRNA ? 10/19/2019 12:47 PM Airway Patient location: OR Urgency: elective Indications for airway management: anesthesia Difficult airway: no Staff: Placed by: PURLER: Julian Ramon CRNA Airway prep: Preoxygenated: yes Patient position: sniffing Mask difficulty assessment: 1 - vent by mask Sedation level during airway: GA Final airway details: Final airway type: endotracheal airway Tube type: ETT ETT size: 7.0 mm Cuffed: yes Technique used for successful ETT placement: direct laryngoscopy Devices/Methods used in placement: intubating stylet Insertion site: oral Blade type: Escobar Blade size: 3 Cormack-Lehane (direct): grade I - full view of glottis Cuff volume: 7 mL Cuff inflated with: air Placement verified by: auscultation and CO2 detection Airway secured with: silk tape Number of attempts: 1 Dre Castellon MD ANESTHESIA ORDERABLES Final Result documented in this encounter Visit Diagnoses Not on filedocumented in this encounter Administered Medications Inactive Administered Medications - up to 3 most recent administrations Medication Order MAR Action Action Date Dose Rate Site ePHEDrine injection intravenous, Administer over 5 Minutes, As needed, Starting on Fri10/19/19 at 1253, Anesthesia Intra-op Given 10/19/2019 12:57 PM CDT 35 mg Given 10/19/2019 12:53 PM CDT 15 mg fentaNYL (SUBLIMAZE) preservative free injection intravenous, As needed, Starting on Fri10/19/19 at 1226, Anesthesia Intra-op Given 10/19/2019 12:26 PM CDT 50 mcg lidocaine (cardiac) (XYLOCAINE) preservative free injection As needed, Starting on Fri10/19/19 at 1232, Anesthesia Intra-op, Indications: Ventricular ArrhythmiasIndications:Ventricular Arrhythmias Given 10/19/2019 12:32 PM CDT 5 mL phenylephrine (XAVIER-SYNEPHRINE) 1 mg in sodium chloride 0.9% 10 mL solution intravenous, Continuous PRN, Starting on Fri10/19/19 at 1232, Anesthesia Intra-op Bolus 10/19/2019 12:55 PM CDT 20 0 mcg Bolus 10/19/2019 12:48 PM CDT 200 mcg Bolus 10/19/2019 12:38 PM CDT 100 mcg propofoL (DIPRIVAN) IV intravenous, As needed, Starting on Fri10/19/19 at 1232, Anesthesia Intra-op Given 10/19/2019 12:32 PM CDT 140 mg succinylcholine (ANECTINE) injection intravenous, As needed, Starting on Fri10/19/19 at 1232, Anesthesia Intra-op Given 10/19/2019 12:32 PM CDT 75 mg documented in this encounter Care Teams Spool Salvager Relationship Specialty Start Date End Date Ronald Castrejon MD PCP - General 06/21/16 07/17/22 Reynaldo Flannery DO Consulting Physician Cardiology 09/26/17 Guanakito Holland MD Consulting Physician Cardiovascular Disease 07/29/18 documented as of this encounter
--- OUTSIDE RECORDS SUMMARY | 2024-04-11 06:38 | XMS_ITS | Encounter Summary ---
Author Organization [facility] Healthcare Address [address] [place] [address] Care Team Providers Care Appellate Conferee Name Role Phone Ronald Castrejon MD Primary Care Provider Reynaldo Flannery DO Unavailable Guanakito Holland MD Unavailable Annel Curiel RN Unavailable [phone] Encounter Details Date Type Department Care Team (Latest Contact Info) Description 01/06/2019 8:22 AM CDT Anesthesia Event [facility] Electrophysiology Lab [address] [place] [address] Joe Bower MD [address] [place] [address] Jeaneth Judge CRNA [address] [facility] [place] [address] Anesthesia Record Procedure Summary Procedure Name Responsible Anesthesiologist Anesthesia Start Time Anesthesia Stop Time ATRIOVENTRICULAR (AV) NODE ABLATION 26624 Joe Bower MD 01/06/19 0822 01/06/19 1000 Events Date Time Event Comment 01/06/2019 0753 0822 An Start 0825 An Start Data 0833 Quick Note Pt is very adeline strophobic, trying a NC first. 0837 An Induction The patient was reevaluated immediately before moderate or deep sedation use and before anesthesia induction. 0837 Anesthesia Ready 0917 Quick Note ablation 0945 an stop data 0948 Handoff to RN I completed my handoff [...] disposition at the time of handoff: PACU 1000 An Stop 1000 Release from care Meds Name Total propofol 20 mg propofol 234.6 mg ondansetron 4 mg dexamethasone 4 mg/ml 8 mg etomidate 8 mg sodium chloride 0.9% infusion 100 mL * Agents Name O2 * Blood No blood administrations on file. Lines, Drains, and Airways Type Details Placement Removal Peripheral IV Placement Date: 01/06/19; Placement Time: 720; Catheter Size: 22 G; Orientation: Left; Location: Hand; Site Prep: Chlorhexidine; Inserted by: BRAYAN Gonzalez; Insertion Attempts: 1; Patient Tolerance: Tolerated well; Removal Date: 01/07/19; Removal Time: 1246 01/06/19 0721 by Melvi Dutton RN 01/07/19 124 by Kia Bustos RN Venous Sheath Placement Date: 01/06/19; Placement Time: 909; Hand Hygiene: Yes; Site Prep: Chlorhexidine; Sterile Barrier Used: Yes; Inserted by: Dr. 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 Gender Identity Female 10/09/2022 9:08 AM CDT Sexual Orientation Choose not to disclose 2022 9:08 AM CDT documented as of this encounter OR Notes * Anesthesia Postprocedure Evaluation - Jeaneth Judge CRNA - 01/06/2019 10:00 AM CDT Patient: Abena Giron Procedure Summary Date: 01/06/19 Room / Location: [facility] EP LAB D / [facility] EP LAB Anesthesia Start: 821 Anesthesia Stop: 999 Procedures: ATRIOVENTRICULAR (AV) NODE ABLATION 99284 (N/A ) PERIPROC PPM EVAL/REPROG 62488 (N/A ) Diagnosis: (A-FIB) Provider: Reynaldo Flannery DO Responsible Provider: Joe Bower MD Anesthesia Type: general/TIVA ASA Status: 3 Anesthesia Type: general/TIVA Last vitals BP (!) 225/95 Pulse 82 Temp 36 ??C (96.8 ??F) (Tympanic) Resp 24 SpO2 98% Anesthesia Post Evaluation Patient location: [facility] recovery area. 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 Anesthesia Evaluation Abena Giron is a 78 y.o. female Procedure(s): ATRIOVENTRICULAR (AV) NODE ABLATION 28114 * No Diagnosis Codes entered * HISTORY Past Medical History Information obtained from: patient and chart. Cardiovascular + Hypertension + CAD + OR + CHF + Atrial fibrillation/flutter - + PAD/Aorta disease - current AAA. Respiratory + Sleep apnea (GENNY) Endocrine / Other + Obesity (BMI >30) Patient Active Problem List Diagnosis ??? Hypertension ??? Osteoarthritis ??? Hyperlipidemia ??? Coronary artery disease involving barrow coronary artery of barrow heart without angina pectoris ??? Paroxysmal atrial fibrillation (CMS/HCC) ??? Chronic GERD ??? Anxiety ??? Abdominal aortic aneurysm (AAA) without rupture (CMS/HCC) ??? Atrial fibrillation with rapid ventricular response (CMS/HCC) ??? B12 deficiency ??? NSTEMI (non-ST elevated myocardial infarction) (CMS/HCC) ??? Sinus node dysfunction (CMS/HCC) ??? Chronic CHF (CMS/HCC) ??? GENNY (obstructive sleep apnea) Past Medical History: Diagnosis Date ??? Adiposity obesity ??? Aortic aneurysm (CMS/HCC) Pt states found by ultrasound upper abd. ??? Arthritis ??? Atrial fibrillation (CMS/HCC) ??? Cancer (CMS/HCC) ??? Coronary artery disease ??? Depression ??? Gastroesophageal reflux disease GERD [...] comments) severe heart pain ??? Diltiazem Itching Med List Status: Nurse Complete Set By: Melvi Dutton RN at 01/06/2019 7:10 AM Taking? Last Dose Start Date End Date Provider ALPRAZolam (XANAX) 0.25 mg tablet More than a month 09/23/18 -- Ronald Castrejon MD Take 1 tablet (0.25 mg total) by mouth 2 (two) times a day as needed for anxiety apixaban (ELIQUIS) 5 mg tablet 01/04/2019 01/24/16 -- CECI White take 1 tablet by oral route 2 times every day artificial tears (SYSTANE) 0.3 % gel Past Week -- -- Historical Provider, ascorbic acid (vitamin C) 1,000 mg tablet 01/04/2019 -- -- Historical Provider, cholecalciferol (VITAMIN D-3) 2,000 unit tablet 01/04/2019 12/06/15 -- CECI White take 1 tablet by oral route every day cyanocobalamin (Vitamin B-12) 100 mcg tablet 01/04/2019 -- -- Historical Provider, loratadine (CLARITIN) 10 mg tablet 01/04/2019 -- -- Historical Provider, MAGNESIUM ORAL 01/04/2019 -- -- Historical Provider, Current Facility-Administered Medications: ??? sodium chloride 0.9% infusion, 50 mL/hr, intravenous, Continuous, Last Rate: 50 mL/hr at 01/06/19721, 50 mL/hr at 01/06/19721 Social History Tobacco Use Smoking Status Former Smoker ??? Last attempt to quit: 1975 ??? Years since quittin.8 Smokeless Tobacco Never Used Substance and Sexual [...] Depression Brother Depression; ??? Hypertension Brother Hypertension; PAT Physical Exam Vitals: 01/06/19 0716 BP: (!) 225/95 Pulse: 82 Resp: 24 Temp: 36 ??C (96.8 ??F) SpO2: 98% PT: 12/30/2018: 12.7 sec INR: 12/30/2018: 1.09 APTT: No results found for requested labs within last 720 hours. Hgb A1C: No results found for requested labs within last 720 hours. CBC RBC: 12/30/2018: 4.44 M/cumm RDW: 12/17/2018: 12.7 % MCHC: 12/30/2018: 33.1 g/dL MCH: 12/30/2018: 31.3 pg MCV: 12/30/2018: 94.6 fL Hct: 12/30/2018: 42.0 % Hgb: 12/30/2018: 13.9 g/dL WBC: 12/30/2018: 8.2 K/cumm MPV: 12/30/2018: 10.4 fL Platelets: 12/30/2018: 235 K/cumm RDW CV: 12/30/2018: 12.6 % RDW Sd: 12/30/2018: 43.6 fL BMP Glucose: 12/30/2018: 128 mg/dL Calcium: 12/30/2018: 9.9 mg/dL Sodium: 12/30/2018: 142 mmol/L Potassium: 12/30/2018: 4.8 mmol/L CO2: 12/30/2018: 29 mmol/L Chloride: 12/30/2018: 104 mmol/L BUN: 12/30/2018: 14 mg/dL Creatinine: 12/30/2018: 0.65 mg/dL DOS Physical Exam Medical history, medications, and allergies reviewed. Attestation: This PAT evaluation 01/06/2019. Airway Exam: Mallampati: II Cervical ROM: FROM TM distance: 3.5 Jaw ROM: full Cardiovascular Exam: Rate: regular Rhythm: regular Pulmonary Exam: LCTA, bilat Dental Exam: Otherwise appears intact Anesthesia Plan ASA 3 My patient is approved for the Anesthesia Controlled Medication protocol when under care of a GUN NUMBERER Planned anesthesia: General/TIVA Team communication plan: mask Induction: Induction: intravenous. Postoperative Plan: No plan for postoperative opioid use. No postoperative mechanical ventilation intended. Patient's planned disposition post procedure is Outpatient. Informed Consent: Discussed plan with GUN NUMBERER. Anesthesia plan and risks discussed with patient. [...] MAR Action Action Date Dose Rate Site dexamethasone (DECADRON) 4 mg/mL injection intravenous, Administer over 2 Minutes, As needed, Starting on Fri01/06/19 at 0905, Anesthesia Intra-op Given 01/06/2019 9:05 AM CDT 8 mg etomidate (AMIDATE) injection Administer over 1 Minutes, As needed, Starting on Fri01/06/19 at 0837, Anesthesia Intra-op Given 01/06/2019 8:37 AM CDT 8 mg ondansetron (ZOFRAN) injection intravenous, Administer over 2 Minutes, As needed, Starting on Fri01/06/19 at 0928, Anesthesia Intra-op Given 01/06/2019 9:28 AM CDT 4 mg propofol (DIPRIVAN) IV intravenous, Continuous PRN, Starting on Fri01/06/19 at 0837, Anesthesia Intra-op Rate/Dose Change 01/06/2019 9:31 AM CDT 30 mcg/kg/min 14.08 mL/hr Rate/Dose Change 01/06/2019 9:13 AM CDT 40 mcg/kg/min 18.7 7 mL/hr Rate/Dose Change 01/06/2019 9:09 AM CDT 50 mcg/kg/min 23.4 6 mL/hr propofol (DIPRIVAN) IV intravenous, As needed, Starting on Fri01/06/19 at 0909, Anesthesia Intra-op Given 01/06/2019 9:09 AM CDT 20 mg documented in this encounter Care Teams Appellate Conferee Relationship Specialty Start Date End Date Ronald Castrejon MD PCP - General 06/21/16 07/17/22 Reynaldo Flannery DO Consulting Physician Cardiology 09/26/17 Guanakito Holland MD Consulting Physician Cardiovascular Disease 07/29/18 Annel Curiel, RN [address] [address] Maintenance Parts Technician 11/18/18 05/16/19 documented as of this encounter
--- OUTSIDE RECORDS SUMMARY | 2024-04-11 06:38 | XMS_ITS | Encounter Summary ---
Author Organization [facility] Medical Group Address [address] [place] [address] Care Team Providers Care Media Center Director School Name Role Phone Ronald Castrejon MD Primary Care Provider [phone] Reynaldo Flannery DO Unavailable [phone] Guanakito Holland MD Unavailable Annel Curiel RN Unavailable Encounter Details Date Type Department Care Team (Late st Contact Info) Description 02/17/2019 Orders Only [facility] [address] [facility] [address] [place] [address] Ronald Castrejon MD [address] [place] [address] [address] [place] [address] Social History Tobacco Use Types Packs/Day Years Used Date Smoking Tobacco: Former Cigarettes Q uit: 1975 Smokeless Tobacco: Never Alcohol Use Standard Drinks/Week Comments No 0 (1 standard drink = 0.6 oz pur e alcohol) PHQ-2 Answer Date Recorded PHQ-2 Score 0 12/24/2018 Comments No Sex and Gender Information Value Date Recorded Sex Assigned at Not on file 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 Gender Identity Female 10/09/2022 9:08 AM CDT Sexual Orientation Choose not to disclose 2022 9:08 AM CDT documented as of this encounter Ordered Prescriptions Prescription Sig Dispense Quantity Refills Last Filled Start Date End Date ciprofloxacin (CIPRO) 500 mg tablet Take 1 tablet (500 mg total) by mouth 2 (two) times a day for 10 days 20 tablet 02/17/2019 02/27/2019 metroNIDAZOLE (FLAGYL) 500 mg tablet Take 1 tablet (500 mg total) by mouth 3 (three) times a day for 10 days 30 tablet 02/17/2019 02/27/2019 documented in this encounter Plan of Treatment Not on file documented as of this encounter Visit Diagnoses Not on filedocumented in this encounter Care Teams Media Center Director School Relationship Specialty Start Date End Date Ronald Castrejon MD PCP - General 06/21/16 07/17/22 Reynaldo Flannery DO Consulting Physician Cardiology 09/26/17 Guanakito Holland MD Consulting Physician Cardiovascular Disease 07/29/18 Annel Curiel, BRAYAN [address] [place] [id number] Rig Welder 11/18/18 05/16/19 documented as of this encounter
--- OUTSIDE RECORDS SUMMARY | 2024-04-11 06:38 | XMS_ITS | Encounter Summary ---
Author Organization [facility] Medical Group Address [address] [place] [address] Care Team Providers Care Wrap Yarn Sorter Name Role Phone Ronald Castrejon MD Primary Care Provider [phone] Reynaldo Flannery DO Unavailable [phone] Guanakito Holland MD Unavailable [phone] Reason for Visit * Reason Comments Sinus Problem Encounter Details Date Type Department Care Team (Late st Contact Info) Description 07/23/2019 10:00 AM CDT Office Visit [facility] [address] [facility] [address] [place] [address] Princess Rios, EXAMINATION GRADER 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 Gender Identity Female 10/09/2022 9:08 AM CDT Sexual Orientation Choose not to disclose 2022 9:08 AM CDT documented as of this encounter Last Filed Vital Signs Vital Sign Reading Time Taken Comments Blood Pressure 122/74 07/23/2019 10:21 AM CDT Pulse 72 07/23/2019 10:21 AM CDT Temperature 37.2 ??C (99 ??F) 07/23/2019 10:21 AM CDT Respiratory Rate 16 07/23/2019 10:21 AM CDT Oxygen Saturation - - Inhaled Oxygen Concentration - - Weight 78.5 kg (173 lb) 07/23/2019 10:21 AM CDT Height 154.9 cm (5' 1 ) 07/23/2019 10:21 AM CDT Body Mass Index 32.69 07/23/2019 10:21 AM CDT documented in this encounter Patient Instructions * Patient Instructions* Princess Rios NP - 07/23/2019 10:00 AM CDT Images from the original note were not included. I truly hope you received EXCELLENT care today! [place] and I are thankful you have trusted us with your care. You records will be available in the electronic system for any specialist who utilize the same system. Please do not hesistate to call if you have absolutely any questions or concerns. You may receive a phone call or text asking about your care today. We would love to hear your input and again hope your visit was as EXCELLENT as possible even though you may not have been feeling well! Thank you in advance, Princess documented in this encounter Ordered Prescriptions Prescription Sig Dispense Quantity Refills Last Filled Start Date End Date azithromycin (ZITHROMAX) 250 mg tablet Take 2 tabs (500 mg) by mouth today, than 1 tab (250 mg) daily for 4 days. 6 tablet 07/23/2019 0 fluticasone propionate (FLONASE) 50 mcg/actuation nasal spray Administer 2 sprays into each nostril daily 16 g 3 07/23/2019 3 documented in this encounter Progress Notes * Princess Rios NP - 07/23/2019 10:00 AM CDT Images from the original note were not included. [facility] Patient ID: Abena Giron is a 79 y.o. female Chief Complaint. Chief Complaint Patient presents with ??? Sinus Problem HPI: Abena Giron presents today with nearly 6 weeks of sinus congestion, pressure behind eyes and dry throughout. She does suffer from spring allergies stating she is taking daily Waleska and Flonase, utilizing Neti pot which initially seemed to improve sx throughout daytime but there has been steady progression of sinusitis sx over the last month. No fevers or chills, low-grade temperature 99.0?? today in office but states she ???feels fine ???no cough, dyspnea, wheezing, stating her throat isn't necessarily sore but just dry. Allergies Allergen Reactions ??? Phenobarbital Hallucinations ??? [...] comments) severe heart pain ??? Diltiazem Itching Current Outpatient Medications Medication Sig Dispense Refill ??? ALPRAZolam (XANAX) 0.25 mg tablet Take 1 tablet (0.25 mg total) by mouth 2 (two) times a day asneeded for anxiety 60 tablet 1 ??? apixaban (ELIQUIS) 5 mg tablet take 1 tablet by oral route 2 times every day 0 0 ??? artificial tears (SYSTANE) 0.3 % gel Apply 1 drop to both eyes 4 (four) times a day as needed ??? ascorbic acid (vitamin C) 1,000 mg tablet Take 2,000 mg by mouth daily ??? cholecalciferol (VITAMIN D-3) 2,000 unit tablet take 1 tablet by oral route every day 90 3 ??? cyanocobalamin (Vitamin B-12) 100 mcg tablet Take 100 mcg by mouth daily. ??? MAGNESIUM ORAL Take 2 capsules by mouth daily ??? famotidine (PEPCID) 40 mg tablet Take 1 tablet (40 mg total) by mouth daily (Patient not taking: Reported on 02/22/2019) 90 tablet 3 ??? furosemide (LASIX) 40 mg tablet ??? HYDROcodone-acetaminophen (NORCO) 5-325 mg per tablet Take 0.5 tablets by mouth every 6 (six) hours as needed for pain (1 tablet PO PRN pain) (Patient not taking: Reported on 07/23/2019) 15 tablet 0 ??? loratadine (CLARITIN) 10 mg tablet Take 10 mg by mouth daily as needed ??? spironolactone (ALDACTONE) 25 mg tablet No current facility-administered medications for this visit. Review of Systems: Review of Systems Constitutional: Negative for activity change, appetite change and diaphoresis. Refer to HPI HENT: Positive for congestion, ear pain, postnasal drip, sinus pressure, sinus pain and sore throat. Refer to HPI Eyes: Negative. Negative for visual disturbance. Respiratory: Refer to HPI Cardiovascular: Negative for chest pain. Gastrointestinal: Negative. Skin: Negative for rash. Neurological: Positive for headaches. Negative for dizziness. Vitals: 07/23/19 1021 BP: 122/74 Pulse: 72 Resp: 16 Temp: 37.2 ??C (99 ??F) TempSrc: Oral Weight: 78.5 kg (173 lb) Height: 154.9 cm (5' 1 ) Physical Exam: Physical Exam Constitutional: Appearance: She is well-developed. HENT: Head: Normocephalic and atraumatic. Ears: Comments: Mild clear drainage w/ bulging behind BL TMs w/o erythema Nose: Congestion and rhinorrhea present. Mouth/Throat: Mouth: Mucous membranes are dry. Pharynx: Oropharyngeal exudate present. Comments: Dry mucous membranes, posterior pharynx; slight erythema, diffuse purulent drainage streaking posterior pharynx BL maxillary & frontal sinus pain to palpation BL Eyes: Pupils: Pupils are equal, round, and reactive to light. Cardiovascular: Rate and Rhythm: Normal rate and regular rhythm. Heart sounds: Normal heart sounds. No murmur. No gallop. Pulmonary: Effort: Pulmonary effort is normal. No respiratory distress. Breath sounds: Normal breath sounds. No wheezing. Neurological: Mental Status: She is alert and oriented to person, place, and time. Psychiatric: Behavior: Behavior normal. Diagnostics: Lab Results Component Value Date WBC 8.1 03/13/2019 HGB 13.6 03/13/2019 HCT 42.6 03/13/2019 LABPLAT 251 03/13/2019 CHOL 278 (H) 12/17/2018 TRIG 172 (H) 12/17/2018 HDL 47 (L) 12/17/2018 ALT 21 03/13/2019 AST 36 03/13/2019 SODIUM 139 03/13/2019 POTASSIUM 4.5 03/13/2019 CHLORIDE 102 03/13/2019 CREATININE 0.60 03/13/2019 BUNSER 8 03/13/2019 CO2 24 03/13/2019 TSH 0.88 07/29/2018 INR 1.09 12/30/2018 HGBA1C 5.5 07/29/2018 I personally reviewed all diagnostics, labs, and prior documentations today in clinic. Additionally, medications were reviewed and reconciled. Assessment/Plan Diagnoses and all orders for this visit: Acute non-recurrent pansinusitis (Primary) Comments: Requesting z-pack D/T prior success w/ medication, Z-pack sent to pharamcy as desired along with recommending warm compresses, flonase, antihistamine, S/Es advised. RTC prn BMI 32.0-32.9,adult Allergic rhinitis due to pollen, unspecified seasonality Comments: Cnt. Daily Waleska for pending Flonase and avoids upon exposure, Cnt. Filter at home, per to preventallergy flare-up throughout spring Essential hypertension Assessment & Plan: Normotensive in clinic. Cnt. Prior prescribed antihypertensives recommended to avoid OTC decongestants D/T Hx of atrial fib and HTN. Cnt. Dash, heart healthy diet and regular exercise as tolerated given Paroxysmal atrial fibrillation (CMS/HCC) Assessment & Plan: Routinely follows-up with at [facility]. NSR today in office. Cnt. Eliquis for anticoagulation Other orders - fluticasone propionate (FLONASE) 50 mcg/actuation nasal spray; Administer 2 sprays into each nostril daily - azithromycin (ZITHROMAX) 250 mg tablet; Take 2 tabs (500 mg) by mouth today, than 1 tab (250 mg) daily for 4 days. Recommended patient to continue to increase heart healthy diet along with mild- moderate daily exercise as tolerated. Future Appointments Date Time Provider Department Center 12/13/2019 9:00 AM [facility], [facility] 12/27/2019 1:30 PM Ronald Castrejon MD [facility] All past family, medical, and social history were reviewed and updated in the EMR as well as current medications. Patient offered no further complaints and was in agreement with plan of care. Patientwas advised regarding dosage, use, and side effects of any new medications. Patient was advised to f/u in office with any worsening or little to no improvement of symptoms. Patient was advised to follow-up regarding the results of testing ordered in office today and that they should hear from us regarding the results in 2-3 business days, discussed benefits of MyChart in regard to patient experience. The patient was given the opportunity to have all questions answered today and was in agreementwith the plan of care. This note is dictated and transcribed using [employer]. Reinstatement Clerk variancesmay occur. Despite proofreading, typographical errors may occur. Cosigned by Ronald Castrejon MD at 07/23/2019 11:57 AM CDT documented in this encounter Miscellaneous Notes * Assessment & Plan Note - Princess Rios NP - 07/23/2019 11:05 AM CDT Associated Problem(s): Paroxysmal atrial fibrillation (CMS/HCC) (HCC) (Resolved 02/13/2024) Routinely follows-up with at [facility]. NSR today in office. Cnt. Eliquis for anticoagulation * Assessment & Plan Note - Princess Rios NP - 07/23/2019 11:04 AM CDT Associated Problem(s): Hypertension Normotensive in clinic. Cnt. Prior prescribed antihypertensives recommended to avoid OTC decongestants D/T Hx of atrial fib and HTN. Cnt. Dash, heart healthy diet and regular exercise as tolerated given documented in this encounter Plan of Treatment Not on file documented as of this encounter Visit Diagnoses Diagnosis Acute non-recurrent pansinusitis- Primary BMI 32.0-32.9,adult Allergic rhinitis due to pollen, unspecified seasonality Essential hypertension Unspecified essential hypertension Paroxysmal atrial fibrillation (CMS/HCC) (HCC) Atrial fibrillation documented in this encounter Discontinued Medications Medication Sig Discontinue Reason Start Date End Da te loratadine (CLARITIN) 10 mg tablet Take 10 mg by mouth daily as needed 07/23/2019 documented as of this encounter Historical Medications * This list may reflect changes made after this encounter. fexofenadine (WALESKA) 180 mg tablet Take 1 tablet (180 mg total) by mouth daily 08/12/2022 spironolactone (ALDACTONE) 25 mg tablet 07/01/2019 09/19/2021 furosemide (LASIX) 40 mg tablet 06/07/2019 01/31/2020 added in this encounter Care Teams Wrap Yarn Sorter Relationship Specialty Start Date End Date Ronald Castrejon MD PCP - General 06/21/16 07/17/22 Reynaldo Flannery DO Consulting Physician Cardiology 09/26/17 Guanakito Holland MD Consulting Physician Cardiovascular Disease 07/29/18 documented as of this encounter
--- OUTSIDE RECORDS SUMMARY | 2024-04-11 06:38 | XMS_ITS | Encounter Summary ---
Author Organization [facility] Address [address] [place] [address] Care Team Providers Care Rapid Transit Operator Name Role Phone Ronald Castrejon MD Primary Care Provider [phone] Reynaldo Flannery DO Unavailable Guanakito Holland MD Unavailable Annel Curiel RN Unavailable [phone] Encounter Details Date Type Department Care Team (Late st Contact Info) Description 12/14/2018 Orders Only [facility] [address] [facility] [address] [place] [address] Ronald Castrejon MD [address] [place] [address] [address] [place] [address] Hyperlipidemia, unspecified hyperlipidemia type (Primary Dx); B12 deficiency; Vitamin D deficiency Social History Tobacco Use [...] on file 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 Gender Identity Female 10/09/2022 9:08 AM CDT Sexual Orientation Choose not to disclose 2022 9:08 AM CDT documented as of this encounter Plan of Treatment Not on file documented as of this encounter Procedures Procedure Name Priority Date/Time Associated Diagnosis Comments LIPID PANEL WITH REFLEX TO DIRECT LDL Routine 12/17/2018 9:00 AM CDT Hyperlipidemia, unspecified hyperlipidemia type CBC WITH AUTO DIFFERENTIAL Routine 12/17/2018 9:00 AM CDT Hyperlipidemia, unspecified hyperlipidemia type VITAMIN D 25 HYDROXY Routine 12/17/2018 9:00 AM CDT Vitamin D deficiency MAGNESIUM Routine 12/17/2018 9:00 AM CDT Hyperlipidemia, unspecified hyperlipidemia type VITAMIN B12 Routine 12/17/2018 9:00 AM CDT B12 deficiency COMPREHENSIVE METABOLIC PANEL Routine 12/17/2018 9:00 AM CDT Hyperlipidemia, unspecified hyperlipidemia type documented in this encounter Results * (ABNORMAL) Lipid panel with reflex to direct LDL (12/17/2018 9:00 AM CDT) Cholesterol 278(H) <200 mg/dL [facility] [place] HDL 47(L) >50 mg/dL [facility] [place] Triglycerides 172(H) <150 mg/dL [facility] [place] LDL 197(H) mg/dL (calc) [facility] [place] Comment: LDL-C levels > or = 190 mg/dL may indicate familial hypercholesterolemia (FH). Clinical assessment and measurement of blood lipid levels should be considered for all first degree relatives of patients with an FH diagnosis. For questions about testing for familial hypercholesterolemia, please call [employer] [facility] at [email or web address].GENE.INFO. Vitor Al, et al. J National Lipid Association Recommendations for Patient-Centered Management of Dyslipidemia: Part 1 Journal of Clinical Lipidology 2015;9(2), 129-169. Reference range: <100 Desirable range <100 mg/dL for primary prevention; ?? <70 mg/dL for patients with CHD or diabetic patients with > or = 2 CHD risk factors. LDL-C is now calculated using the Amber calculation, which is a validated novel method providing better accuracy than the Friedewald equation in the estimation of LDL-C. Carlos A HARVEY et al. VIC. 2013;310(19): 2145-3924 (http://education.Speedshape/faq/KBB766) Chol/HDL ratio 5.9(H) <5.0 (calc) [facility] [place] Non-HDL, (LDL+VLDL) 231(H) <130 mg/dL (calc) [facility] Comment: Non-HDL level > or = 220 is very high and may indicate genetic familial hypercholesterolemia (FH). Clinical assessment and measurement of blood lipid levels should be considered for all first-degree relatives of patients with an FH diagnosis. For patients with diabetes plus 1 major ASCVD risk factor, treating to a non-HDL-C goal of <100 mg/dL (LDL-C of <70 mg/dL) is considered a therapeutic option. Blood specimen (specimen) 12/17/2018 9:00 AM CDT 12/18/2018 5:41 AM CDT Narrative Resulting Agency Comment Performing Organization Information: ?Site ID: [place] ?Name: [facility] ?Address: [address] [place] [address] [place] [id number] ?Director: Jerardo Krueger D.O., MPH Ronald Castrejon MD LAB BLOOD ORDERABLES Final Res ult [facility] [place] * Magnesium (12/17/2018 9:00 AM CDT) Magnesium 1.8 1.5 - 2.5 mg/dL [facility] Blood specimen (specimen) 12/17/2018 9:00 AM CDT 12/18/2018 5:41 AM CDT Narrative Resulting Agency Comment Performing Organization Information: ?Site ID: [place] ?Name: [facility] ?Address: [address] [place] [address] ?Director: Jerardo Krueger D.O. MPH Ronald Castrejon MD LAB BLOOD ORDERABLES Final Res ult Performing Organization Address [facility] Co de Phone Number [facility] [place] * (ABNORMAL) Vitamin B12 (12/17/2018 9:00 AM CDT) Pathologist [facility] Vitamin B12 1,332(H) 200 - 1,100 pg/mL [facility] Blood specimen (specimen) 12/17/2018 9:00 AM CDT 12/18/2018 5:41 AM CDT Narrative Resulting Agency Comment Performing Organization Information: ?Site ID: [place] ?Name: [facility] ?Address: [facility] [place] [address] ?Director: Jerardo Krueger D.O., MPH Ronald Castrejon MD LAB BLOOD ORDERABLES Final Res ult Performing Organization Address [facility] Co de Phone Number [facility] [place] * Vitamin D 25 hydroxy (12/17/2018 9:00 AM CDT) [facility] Vitamin D 25-OH 51 30 - 100 ng/mL [facility] Comment: Vitamin D Status ? 25-OH Vitamin D: Deficiency: ?<20 ng/mL Insufficiency: ? 20 - 29 ng/mL Optimal: ? > or = 30 ng/mL For 25-OH Vitamin D testing on patients on D2-supplementation and patients for whom quantitation of D2 and D3 fractions is required, the QuestAssureD(TM) 25-OH VIT D, (D2,D3), LC/MS/MS is recommended: order code 44507 (patients >2yrs). For more information on this test, go to: http://education.Minbox/faq/ASZ444 (This link is being provided for informational/educational purposes only.) Blood specimen (specimen) 12/17/2018 9:00 AM CDT 12/18/2018 5:41 AM CDT Narrative Resulting Agency Comment Performing Organization Information: ?Site ID: [place] ?Name: [facility] ?Address: [facility] [place] [phone] ?Director: Jerardo Krueger D.O., MPH us Ronald Castrejon MD LAB BLOOD ORDERABLES Final Res ult [facility] [place] * CBC with auto differential (12/17/2018 9:00 AM CDT) WBC 7.2 3.8 - 10.8 Thousand/u L [facility] [place] RBC, POC 4.50 3.80 - 5.10 Million/uL [facility] Hgb 14.1 11.7 - 15.5 g/dL [facility] [place] Hct 41.3 35.0 - 45.0 % [facility] [place] MCV 91.8 80.0 - 100.0 fL [facility] MCH 31.3 27.0 - 33.0 pg [facility] [place] MCHC 34.1 32.0 - 36.0 g/dL [facility] [place] Rdw 12.7 11.0 - 15.0 % [facility] [place] Platelets 236 140 - 400 Thousand/u L [facility] [place] MPV 10.9 7.5 - 12.5 fL [facility] [place] Neutrophils, abs 3,967 1,500 - 7,800 cells/uL [facility] [place] Lymphocytes, abs 2,470 850 - 3,900 cells/uL [facility] [place] Monocyte abs 540 200 - 950 cells/uL [facility] [place] Eosinophils, abs 151 15 - 500 cells/uL [facility] [place] Basophils, abs 72 0 - 200 cells/uL [facility] [place] Neutrophils 55.1 % [facility] [place] Lymphocyte pct 34.3 % [facility] [place] Monocytes 7.5 % [facility] [place] Eosinophils 2.1 % [facility] [place] Basophils 1.0 % [facility] Blood specimen (specimen) 12/17/2018 9:00 AM CDT 12/18/2018 5:41 AM CDT Narrative Resulting Agency Comment Performing Organization Information: ?Site ID: [place] ?Name: [facility] ?Address: [address] [place] [address] ?Director: Jerardo Krueger D.O., MPH us Ronald Castrejon MD LAB BLOOD ORDERABLES Final Res ult [facility] [place] * (ABNORMAL) Comprehensive metabolic panel (12/17/2018 9:00 AM CDT) Glucose 110(H) 65 - 99 mg/dL [facility] [place] Comment: ? Fasting reference interval For someone without known diabetes, a glucose value between 100 and 125 mg/dL is consistent with prediabetes and should be confirmed with a follow-up test. BUN 13 7 - 25 mg/dL [facility] [place] Creatinine 0.73 0.60 - 0.93 mg/dL [facility] [place] Comment: For patients >49 years of age, the reference limit for Creatinine is approximately 13% higher for people identified as -[place]. eGFR NON-AFR. ANGUILLAN 79 > OR = 60 mL/min/1 .73m2 [facility] [place] EGFR 91 > OR = 60 mL/min/1 .73m2 [facility] [place] BUN/creat ratio NOT APPLICABLE 6 - 22 (calc) [facility] [place] Sodium 141 135 - 146 mmol/L [facility] [place] Potassium, pl 4.0 3.5 - 5.3 mmol/L [facility] [place] Chloride 102 98 - 110 mmol/L [facility] [place] CO2 28 20 - 32 mmol/L [facility] [place] Calcium 9.5 8.6 - 10.4 mg/dL [facility] [place] Protein, sr 7.0 6.1 - 8.1 g/dL [facility] [place] Albumin 4.3 3.6 - 5.1 g/dL [facility] [place] GLOBULIN 2.7 1.9 - 3.7 g/dL (calc) [facility] [place] Alb/glob ratio 1.6 1.0 - 2.5 (calc) [facility] [place] Bilirubin, total 0.5 0.2 - 1.2 mg/dL [facility] [place] Alk phos 40 33 - 130 U/L [facility] [place] AST 17 10 - 35 U/L [facility] [place] ALT (SGPT) 13 6 - 29 U/L [facility] [place] Blood specimen (specimen) 12/17/2018 9:00 AM CDT 12/18/2018 5:41 AM CDT Narrative Resulting Agency Comment Performing Organization Information: ?Site ID: [place] ?Name: Moe Marshall ?Address: [address] [place] [address] ?Director: Jerardo Krueger D.O., MPH us Ronald Castrejon MD LAB BLOOD ORDERABLES Final Res ult [facility] [place] documented in this encounter Visit Diagnoses Diagnosis Hyperlipidemia, unspecified hyperlipidemia type- Primary B12 deficiency Vitamin D deficiency documented in this encounter Care Teams Rapid Transit Operator Relationship Specialty Start Date End Date Ronald Castrejon MD PCP - General 06/21/16 07/17/22 Reynaldo Flannery DO Consulting Physician Cardiology 09/26/17 Guanakito Holland MD Consulting Physician Cardiovascular Disease 07/29/18 Annel Curiel, BRAYAN [address] [facility] [address] [place] [address] Rolls Baker 11/18/18 05/16/19 documented as of this encounter
--- OUTSIDE RECORDS SUMMARY | 2024-04-11 06:38 | XMS_ITS | Encounter Summary ---
Author Organization [facility] Address [address] [place] [address] Care Team Providers Care Director Hospice Operations Name Role Phone Ronald Castrejon MD Primary Care Provider Reynaldo Flannery DO Unavailable Guanakito Holland MD Unavailable [phone] Annel Curiel RN Unavailable Reason for Visit * Reason Comments Medicare Annual Wellness Visit Subsequen t Encounter Details Date Type Department Care Team (Late st Contact Info) Description 12/24/2018 2:30 PM CDT Office Visit [facility] [address] [facility] [address] [place] [address] Ronald Castrejon MD [address] [place] [address] [address] [place] [address] Medicare annual wellness visit, subsequent (Primary Dx); BMI 32.0-32.9,adult; Abdominal aortic aneurysm (AAA) without rupture (CMS/HCC); Mixed hyperlipidemia; Paroxysmal atrial fibrillation (CMS/HCC); 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; Essential hypertension Social History Tobacco Use Types Packs/Day Years Used Date Smoking Tobacco: Former Cigarettes Q uit: 1975 Smokeless Tobacco: Never Alcohol Use Standard Drinks/Week Comments No 0 (1 standard drink = 0.6 oz pur e alcohol) PHQ-2 Answer Date Recorded PHQ-2 Score 0 12/24/2018 Comments No Sex and Gender Information Value Date Recorded Sex Assigned at Not on file 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 Gender Identity Female 10/09/2022 9:08 AM CDT Sexual Orientation Choose not to disclose 2022 9:08 AM CDT documented as of this encounter Last Filed Vital Signs Vital Sign Reading Time Taken Comments Blood Pressure 132/80 12/24/2018 2:40 PM CDT Pulse 60 12/24/2018 2:40 PM CDT Temperature - - Respiratory Rate 20 12/24/2018 2:40 PM CDT Oxygen Saturation - - Inhaled Oxygen Concentration - - Weight 78.5 kg (173 lb) 12/24/2018 2:40 PM CDT Height 154.9 cm (5' 1 ) 12/24/2018 2:40 PM CDT Body Mass Index 32.69 12/24/2018 2:40 PM CDT documented in this encounter Progress Notes * Ronald Castrejon MD - 12/24/2018 2:30 PM CDT Subjective/Objective Patient ID: Abena Giron is a 78 y.o. female. Chief Complaint Medicare Annual Wellness Visit Subsequent HPI Takes he seen today for follow-up he states he feels great she 70 years young she is on medicationsfor her atrial fib had a pacemaker placement by Dr. Pennie Centeno October 2018 everything is going fineshe had previous [facility] 2016 she has a history of coronary disease with stent placement shequit smoking 1975 smoked half a pack a day for about 15 years rarely drinks any alcohol she has hyperlipidemia but refuses any statin therapy noting that a noting that the patient has LDL [id number] she has pre diabetes with blood sugar around 110 fasting she has history of trigger abdominal aortic aneurysm states her chiropractor recently did x-ray of her belly that showed it had changed size but total that is not good enough we need to do ultrasound The patient is her Baljit 3 years ago they were 55 years 6 children 19 total grandkids 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 Edmondson in 2017and pacemaker implantation Patient refuses all vaccinations risk benefits of vaccines discussed with her she declines all she has not had a mammogram for over 3 years she refuses OBGYN care she had a normal bone density in 2012 last colonoscopy was in [facility] with Dr. 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 Indications for testing discussed. Any further problems to contact us. She was told what to look out for and verbalized understanding. The patient was given the opportunity to have all questions answered today and was in agreement with the plan of care. 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 Essential hypertension Unspecified essential hypertension documented in this encounter Discontinued Medications Medication Sig Discontinue Reason Start Date End Da te amiodarone (PACERONE) 200 mg tabletIndications:Preve ntion of Recurrent Atrial Fibrillation Take 1 tablet (200 mg total) by mouth 2 (two) times a day 10/01/2018 12/24/2018 fluticasone propionate (FLONASE) 50 mcg/actuation nasal spray Administer 2 sprays into each nostril daily 08/19/2018 12/24/2018 digestive enzymes tablet Take by mouth daily 12/24/2018 documented as of this encounter Care Teams Director Hospice Operations Relationship Specialty Start Date End Date Ronald Castrejon MD PCP - General 06/21/16 07/17/22 Reynaldo Flannery DO Consulting Physician Cardiology 09/26/17 Guanakito Holland MD Consulting Physician Cardiovascular Disease 07/29/18 Annel Curiel, RN [address] [place] [address] Room Service Waiter 11/18/18 05/16/19 documented as of this encounter
--- OUTSIDE RECORDS SUMMARY | 2024-04-11 06:38 | XMS_ITS | Encounter Summary ---
Author Organization [facility] Address [address] [facility] [address] [place] [address] Care Team Providers Care Electromechanical Assembly Technician Name Role Phone Ronald Castrejon MD Primary Care Provider [phone] Reynaldo Flannery DO Unavailable [phone] Guanakito Holland MD Unavailable Jaclyn Eid RN Unavailable [phone] Encounter Details Date Type Department Care Team (Late st Contact Info) Description 10/09/2018 Orders Only [facility] Information Management [address] [place] [address] Scanning, Provider Social History Tobacco Use Types Packs/Day Years Used Date Smoking Tobacco: Former Cigarettes Q uit: 1975 Smokeless Tobacco: Never Alcohol Use Standard Drinks/Week Comments No 0 (1 standard drink = 0.6 oz pur e alcohol) Comments No Sex and Gender Information Value Date Recorded Sex Assigned at Not on file 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 Gender Identity Female 10/09/2022 9:08 AM CDT Sexual Orientation Choose not to disclose 2022 9:08 AM CDT documented as of this encounter Plan of Treatment Not on file documented as of this encounter Procedures Procedure Name Priority Date/Time Associated Diagnosis Comments SCAN - LABS 10/09/2018 documented in this encounter Results * SCAN - LABS (10/09/2018) us Provider Scanning Edited Result - Final documented in this encounter Visit Diagnoses Not on filedocumented in this encounter Care Teams Electromechanical Assembly Technician Relationship Specialty Start Date End Date Ronald Castrejon MD PCP - General 06/21/16 07/17/22 Reynaldo Flannery DO Consulting Physician Cardiology 09/26/17 Guanakito Holland MD Consulting Physician Cardiovascular Disease 07/29/18 Jaclyn Eid, RN [address] [place] [address] [place] [address] Therapist'S Assistant 07/31/18 11/29/18 documented as of this encounter
--- OUTSIDE RECORDS SUMMARY | 2024-04-11 06:38 | XMS_ITS | Encounter Summary ---
Author Organization [facility] Healthcare Address [address] [place] [address] Care Team Providers Care Direct Service Worker Name Role Phone Ronald Castrejon MD Primary Care Provider [phone] Reynaldo Flannery DO Unavailable [phone] Guanakito Holland MD Unavailable [phone] Encounter Details Date Type Department Care Team (Late st Contact Info) Description 10/19/2019 Orders Only [facility] [address] [place] [address] Shonna Grissom, RT Social History Tobacco Use Types Packs/Day Years [...] and Family Once a week 03/05/2019 Attends [employer] Not on file 03/05 Active Member [...] on file 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
--- OUTSIDE RECORDS SUMMARY | 2024-04-11 06:38 | XMS_ITS | Encounter Summary ---
Author Organization [facility] Address [address] [facility] [address] [facility] [address] [place] [address] Care Team Providers Care Moderate Needs Teacher Name Role Phone Ronald Castrejon MD Primary Care Provider [phone] Reynaldo Flannery DO Unavailable [phone] Guanakito Holland MD Unavailable [phone] Annel Curiel RN Unavailable Encounter Details Date Type Department Care Team (Late st Contact Info) Description 04/01/2019 Orders Only [facility] Information Management [address] [place] [address] Scanning, Provider Social History Tobacco [...] file Legal 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 Gender Identity Female 10/09/2022 9:08 AM CDT Sexual Orientation Choose not to disclose 2022 9:08 AM CDT documented as of this encounter Plan of Treatment Not on file documented as of this encounter Procedures Procedure Name Priority Date/Time Associated Diagnosis Comments SCAN - LABS 04/01/2019 documented in this encounter Results * SCAN - LABS (04/01/2019) us Provider Scanning Final Result documented in this encounter Visit Diagnoses Not on filedocumented in this encounter Care Teams Moderate Needs Teacher Relationship Specialty Start Date End Date Ronald Castrejon MD PCP - General 06/21/16 07/17/22 Reynaldo Flannery DO Consulting Physician Cardiology 09/26/17 Guanakito Holland MD Consulting Physician Cardiovascular Disease 07/29/18 Annel Curiel, BRAYAN [address] [facility] [address] [place] [id number] Safety Companion 11/18/18 05/16/19 documented as of this encounter
--- OUTSIDE RECORDS SUMMARY | 2024-04-11 06:38 | XMS_ITS | Encounter Summary ---
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 Gender Identity Female 10/09/2022 9:08 AM CDT Sexual Orientation Choose not to disclose 2022 9:08 AM CDT documented as of this encounter Plan of Treatment Not on file documented as of this encounter Visit Diagnoses Not on filedocumented in this encounter Care Teams Karate Instructor Relationship Specialty Start Date End Date Ronald Castrejon MD PCP - General 06/21/16 07/17/22 Reynaldo Flannery DO Consulting Physician Cardiology 09/26/17 Guanakito Holland MD Consulting Physician Cardiovascular Disease 07/29/18 Annel Curiel, BRAYAN [address] [place] [address] Regional Wildlife Agent 11/18/18 05/16/19 documented as of this encounter
--- OUTSIDE RECORDS SUMMARY | 2024-04-11 06:38 | XMS_ITS | Encounter Summary ---
Author Organization [facility] Healthcare Address [address] [place] [address] Care Team Providers Care Securities Research Analyst Name Role Phone Ronald Castrejon MD Primary Care Provider [phone] Reynaldo Flannery DO Unavailable [phone] Guanakito Holland MD Unavailable [phone] Encounter Details Date Type Department Care Team (Late st Contact Info) Description 10/19/2019 12:00 PM CDT - 10/19/2019 12:45 PM CDT Surgery [facility] [address] [place] [id number] [place] [address] [place] [address] ENDO ENDOSCOPIC RETROGRADE CHOLANGIOPANCREATOGRAPHY REMOVAL STONES [GI506] Surgery Details Date/Time Status Location OR Service Patient Class Case Class Case Type Trauma Case? 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 Gender Identity Female 10/09/2022 9:08 AM CDT Sexual Orientation Choose not to disclose 2022 9:08 AM CDT documented as of this encounter Last Filed Vital Signs Vital Sign Reading Time Taken Comments Blood Pressure 144/96 10/19/2019 11:51 AM CDT Pulse 69 10/19/2019 11:51 AM CDT Temperature 35.8 ??C (96.5 ??F) 10/19/2019 11:51 AM C DT Respiratory Rate 18 10/19/2019 11:51 AM CDT Oxygen Saturation 99% 10/19/2019 11:51 AM CDT Inhaled Oxygen Concentration - - Weight 75.8 kg (167 lb) 10/19/2019 11:51 AM CDT Height 154.9 cm (5' 1 ) 10/19/2019 11:51 AM CDT Body Mass Index 31.55 10/19/2019 11:51 AM CDT documented in this encounter Medications at Time [...] Order(s): ERCP ENDOSCOPY LAB Patient Name: Abena iGron Procedure Date: 10/19/2019 10:10 AM Admit Type: Outpatient Room: [facility] Date of : 1940 Instrument Name: [id number] Gender: Female Note Status: Finalized Procedure: ERCP [...] concern of symptoms, please contact me at [phone] or go to the emergency room Attending [...] status: Former Smoker Last attempt to quit: 1974 Years since quittin.6 ??? Smokeless tobacco: Never [...] status: Former Smoker Last attempt to quit: 1974 Years since quittin.6 ??? Smokeless tobacco: Never Used Substance and Sexual Activity ??? Alcohol use: No ??? Drug use: No ??? Sexual activity: Defer Lifestyle ??? Physical activity Days per week: Not on file Minutes per session: Not on file ??? Stress: Not on file Relationships ??? Social connections Talks on phone: Three times a week Gets together: Once a week Attends taoism service: Not on file Active member of [...] 10/19/2019 10:10 AM Admit Type: Outpatient Room: [facility] Date of : 1940 Instrument Name: [id number] Gender: Female Note Status: Finalized Procedure: ERCP [...] concern of symptoms, please contact me at [phone] or go to the emergency room Attending [...] intravenous, Administer over 2 Minutes, Once, On 10/19/19 at 1345, For 1 dose, Recovery (GI), Notify MD of pain score greater than 4., Indications: PainIndications:Pain Given 10/19/2019 2:34 PM CDT 1 mg Lactated Ringer's (LR) infusion 30 mL/hr, intravenous, Continuous, Starting on e 10/19/19 at 1215, Pre-Procedure (GI) New Bag 10/19/2019 12:02 PM CDT 30 mL/hr 30 mL/hr LORazepam (ATIVAN) injection 1 mg 1 mg, intravenous, Every 30 min PRN, abdominal pain or spasms, Starting on e 10/19/19 at 1306, For 2 doses, Recovery (GI), For IV administration, dilute with equal volume of 0.9% sodium chloride. Do not exceed a rate of 2 mg/minute, Indications: Muscle Spasm with PainIndications:Muscle Spasm with Pain Given 10/19/2019 1:45 PM CDT 1 mg ondansetron (ZOFRAN) injection 4 mg 4 mg, intravenous, Administer over 2 Minutes, Every 30 min PRN, nausea, vomiting, Starting on e 10/19/19 at 1306, For 2 doses, Recovery (GI), [...] Pain 1434 (Given - Provid er: Lucinda Cary, BRAYAN) ondansetron (ZOFRAN) injection 4 mg 4 mg, [...] Julian Ramon CRNA)1505 (Stopped - Provider: Lucinda Cary RN) sodium chloride 0.9% infusion 125 mL/hr, intravenous, [...] Geovanna Machado RN)1428 (Given - Provider: Lucinda Cary RN) Linked Groups Order Group 1: HYDROmorphone (DILAUDID) [...] 10/19/2019 documented in this encounter Care Teams Securities Research Analyst Relationship Specialty Start Date End Date Ronald Castrejon MD PCP - General 06/21/16 07/17/22 Reynaldo Flannery DO Consulting Physician Cardiology 09/26/17 Guanakito Holland MD Consulting Physician Cardiovascular Disease 07/29/18 documented as of this encounter
--- OUTSIDE RECORDS SUMMARY | 2024-04-11 06:38 | XMS_ITS | Encounter Summary ---
Author Organization [facility] Address [address] [place] [address] Care Team Providers Care Kennel Aide Name Role Phone Ronald Castrejon MD Primary Care Provider [phone] Reynaldo Flannery DO Unavailable [phone] Guanakito Holland MD Unavailable [phone] Jaclyn Eid RN Unavailable [phone] Reason for Referral * Diagnostic Imaging (Routine) - Closed Specialty Diagnoses / Procedures Referred By Danita moctezuma Referred To Contact Diagnoses Disease of cardiovascular system Essential hypertension, malignant Sinoatrial node dysfunction (CMS/HCC) (HCC) Pacemaker Procedures XR Chest Pa Lateral 2 Views Reynaldo Flannery DO Phone: tel: fax: [address] [phone] Referral ID Status Reason Start Date Expiration Date Visits Re quested Visits Authorized [id number] Closed 10/15/2018 04/25/2020 1 1 Reason for Visit * Diagnostic Imaging (Routine) - Closed Specialty Diagnoses / Procedures Referred By Contac t Referred To Contact Diagnoses Disease of cardiovascular system Essential hypertension, malignant Sinoatrial node dysfunction (CMS/HCC) (HCC) Pacemaker Procedures XR Chest Pa Lateral 2 Views Reynaldo Flannery DO Phone: tel: fax: [facility] [id number] [place] [phone] Referral ID Status Reason Start Date Expiration Date Visits Re quested Visits Authorized [id number] Closed 10/15/2018 04/25/2020 1 1 Encounter Details Date Type Department Care Team (Latest Contact Info) Description 10/15/2018 9:43 AM CDT - 10/15/2018 11:59 PM CDT Hospital Encounter [facility] Diagnostic Imaging [address] [place] [id number] Reynaldo Flannery DO [address] [place] [address] [place] [phone] Disease of cardiovascular system; Essential hypertension, malignant; Sinoatrial node dysfunction (CMS/HCC); Pacemaker Discharge Disposition: Discharge to home or self care Social History Tobacco Use Types Packs/Day Years Used Date Smoking Tobacco: Former Cigarettes Q uit: 1975 Smokeless Tobacco: Never Alcohol Use Standard Drinks/Week Comments No 0 (1 standard drink = 0.6 oz pur e alcohol) Comments No Sex and Gender Information Value Date Recorded Sex Assigned at Not on file 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 Gender Identity Female 10/09/2022 9:08 [...] needed for anxiety 60 tablet 1 09/23/2018 05/22/202 3 amiodarone (PACERONE) 200 mg tabletIndications: Prevention of Recurrent Atrial Fibrillation Take 1 tablet (200 mg total) by mouth 2 (two) times a day 60 tablet 10/01/2018 9 apixaban (ELIQUIS) 5 mg tablet take 1 tablet by oral route 2 times every day 0 0 01/24/2016 3 artificial tears (SYSTANE) 0.3 % gel Apply 1 drop to both eyes 4 (four) times a day as needed 3 ascorbic acid (VITAMIN C) 1,000 mg tablet Take 2 tablets (2,000 mg total) by mouth daily 3 digestive enzymes tablet Take by mouth daily 9 fluticasone propionate (FLONASE) 50 mcg/actuation nasal spray Administer 2 sprays into each nostril daily 16 g 11 08/19/2018 9 loratadine (CLARITIN) 10 mg tablet Take 10 mg by mouth daily as needed 0 MAGNESIUM ORAL Take 2 capsules by mouth daily 3 metoprolol XL (TOPROL-XL) 25 mg 24 hr tablet Take 25 mg by mouth 2 (two) times a day 4 09/09/2018 9 mupirocin (BACTROBAN) 2 % nasal ointmentIndication s:Methicillin-Resi stant S. Aureus Nasal Colonization Apply 1 application to each nostril 2 (two) times a day Use one-half of tube in each nostril twice daily for five (5) days. After application, press sides of nose together and gently massage. 9 documented as of this encounter Discharge Disposition Disposition Code Departure Means Destination Discharge to home or self care documented in this encounter Plan of Treatment Not on file documented as of this encounter Procedures Procedure Name Priority Date/Time Associated Diagnosis Comments XR CHEST PA LATERAL 2 VIEWS Schedule Routine, Read Routine (OP Routine) 10/15/2018 9:55 AM CDT Disease of cardiovascular system Essential hypertension, malignant Sinoatrial node dysfunction (CMS/HCC) Pacemaker documented in this encounter Results * XR Chest Pa Lateral 2 Views (10/15/2018 9:55 AM CDT) Anatomical Region Laterality Modality Body, Chest N/A Computed Radiogr aphy 10/15/2018 9:56 AM CDT Impressions 10/15/2018 9:56 AM CDT No active disease. Electronically signed by: Jaswinder Lira M.D. Narrative 10/15/2018 9:56 AM CDT RESULT: HISTORY: The patient is a 78-year-old female who presents with shortness of breath. ??Comparison made with the previous study dated 09/30/2018. TECHNIQUE: PA and lateral view of the chest. FINDINGS: Lungs clear. ??Cardiovascular structures unremarkable. ??Left-sided transvenous pacemaker noted with electrode tips in good position. Procedure Note Jaswinder Lira MD - 10/15/2018 RESULT: HISTORY: The patient is a 78-year-old female who presents with shortness of breath. Comparison made with the previous study dated 09/30/2018. TECHNIQUE: PA and lateral view of the chest. FINDINGS: Lungs clear. Cardiovascular structures unremarkable. Left-sided transvenous pacemaker noted with electrode tips in good position. IMPRESSION: No active disease. Electronically signed by: Jaswinder Lira M.D. Reynaldo Flannery DO IMG XR PROCEDURES Final Result documented in this encounter Visit Diagnoses Diagnosis Disease of cardiovascular system Unspecified cardiovascular disease Essential hypertension, malignant Sinoatrial node dysfunction (CMS/HCC) (HCC) Sinoatrial node dysfunction Pacemaker Cardiac pacemaker in situ documented in this encounter Care Teams Kennel Aide Relationship Specialty Start Date End Date Ronald Castrejon MD PCP - General 06/21/16 07/17/22 Reynaldo Flannery DO Consulting Physician Cardiology 09/26/17 Guanakito Holland MD Consulting Physician Cardiovascular Disease 07/29/18 Jaclyn Eid, RN [address] [facility] [address] [place] [id number] Assayer Helper 07/31/18 11/29/18 documented as of this encounter
--- OUTSIDE RECORDS SUMMARY | 2024-04-11 06:38 | XMS_ITS | Encounter Summary ---
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 Gender Identity Female 10/09/2022 9:08 AM CDT Sexual Orientation Choose not to disclose 2022 9:08 AM CDT documented as of this encounter Plan of Treatment Not on file documented as of this encounter Visit Diagnoses Not on filedocumented in this encounter Care Teams [employer] Business Analyst Relationship Specialty Start Date End Date Ronald Castrejon MD PCP - General 06/21/16 07/17/22 Reynaldo Flannery DO Consulting Physician Cardiology 09/26/17 Guanakito Holland MD Consulting Physician Cardiovascular Disease 07/29/18 Annel Curiel, BRAYAN [address] [place] [address] Training Generalist 11/18/18 05/16/19 documented as of this encounter
--- OUTSIDE RECORDS SUMMARY | 2024-04-11 06:38 | XMS_ITS | Encounter Summary ---
Author Organization [facility] Address [address] [facility] [address] [place] [address] Care Team Providers Care Correctional Agency Director Name Role Phone Ronald Castrejon MD Primary Care Provider [phone] Reynaldo Flannery DO Unavailable Guanakito Holland MD Unavailable [phone] Annel Curiel RN Unavailable [phone] Encounter Details Date Type Department Care Team (Late st Contact Info) Description 12/24/2018 Orders Only [facility] [address] [facility] [address] [place] [address] Ronald Castrejon MD [address] [place] [address] [address] [place], [place] [id number] Visit for screening mammogram (Primary Dx); Osteopenia of multiple sites; Encounter for abdominal aortic aneurysm (AAA) screening Social History Tobacco Use Types Packs/Day Years [...] file 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 Gender Identity Female 10/09/2022 9:08 AM CDT Sexual Orientation Choose not to disclose 2022 9:08 AM CDT documented as of this encounter Plan of Treatment Not on file documented as of this encounter Visit Diagnoses Diagnosis Visit for screening mammogram- Primary Osteopenia of multiple sites Encounter for abdominal aortic aneurysm (AAA) screening documented in this encounter Care Teams Correctional Agency Director Relationship Specialty Start Date End Date Ronald Castrejon MD PCP - General 06/21/16 07/17/22 Reynaldo Flannery DO Consulting Physician Cardiology 09/26/17 Guanakito Holland MD Consulting Physician Cardiovascular Disease 07/29/18 Annel Curiel, BRAYAN [address] [place] [address] Sail Repair Person 11/18/18 05/16/19 documented as of this encounter
--- OUTSIDE RECORDS SUMMARY | 2024-04-11 06:38 | XMS_ITS | Encounter Summary ---
Author Organization [facility] Healthcare Address [address] [place] [address] Care Team Providers Care Internship Coordinator Name Role Phone Ronald Castrejon MD Primary Care Provider Reynaldo Flannery DO Unavailable [phone] Guanakito Holland MD Unavailable [phone] Annel Curiel RN Unavailable Encounter Details Date Type Department Care Team (Latest Contact Info) Description 01/06/2019 8:00 AM CDT - 01/06/2019 9:00 AM CDT Surgery [facility] Electrophysiology Lab [address] [place] [address] Reynaldo Flannery, DO [address] [place], [place] [address] ATRIOVENTRICULAR (AV) NODE ABLATION 79374 Surgery Details Date/Time Status Location OR Service Patient Class Case Class Case Type Trauma Case? 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 Gender Identity Female 10/09/2022 9:08 AM CDT Sexual Orientation Choose not to disclose 2022 9:08 AM CDT documented as of this encounter Last Filed Vital Signs Vital Sign Reading Time Taken Comments Blood Pressure 225/95 01/06/2019 7:16 AM CDT Pulse 82 01/06/2019 7:16 AM CDT Temperature 36 ??C (96.8 ??F) 01/06/2019 7:16 AM CDT Respiratory Rate 24 01/06/2019 7:16 AM CDT Oxygen Saturation 98% 01/06/2019 7:16 AM CDT Inhaled Oxygen Concentration - - Weight 78.2 kg (172 lb 4.8 oz) 01/06/2019 7:16 A M CDT Height 154.9 cm (5' 1 ) 01/06/2019 7:16 AM CDT Body Mass Index 32.32 01/06/2019 7:16 AM CDT documented in this encounter Discharge Summaries * Prabhu Ribeiro NP - 01/07/2019 11:37 AM CDT Inpatient Discharge Summary BRIEF OVERVIEW Admitting Provider: Reynaldo Flannery DO Discharge Provider: Reynaldo Flannery DO Primary Care Physician at Discharge: Ronald Castrejon MD [phone] Admission Date: 01/06/2019 Discharge Date: 01/07/2019 Admission Location: [facility] Primary Discharge Diagnosis: Atrial fibrillation Secondary Discharge Diagnosis: No Active Problems: There are no active problems currently on the Problem List. Please update the Problem List and refresh. DETAILS OF HOSPITAL STAY Presenting Problem/History of Present Illness: Ms. Giron is a 78 year old white female who has a history of atrial fibrillation. She has been unable to tolerate amiodarone or metoprolol d/t side effects. She was not interested in undergoing sotalol or tikosyn loading. Discussed AVN RFA and patient was agreeable to going forward with this so she was brought into the hospital. Hospital Course: Underwent AVN ablation by RFA yesterday. 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 Normal function. Please see procedurenote for details. She was transferred to The telemetry floor in stable condition. No acute events ov ernight. Patient is presently AV paced. Groin site stable. She will be discharged today in stable condition to follow up in 4-6 weeks. 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 Discharge Activity: Lifting restrictions -Do NOT lift greater than 5 pounds for 1 weeks. Discharge Activity: Stairs -Minimize climbing stairs for 1 week. Lead with left leg and take steps one at a time. Discharge Activity: Walking -You may walk as tolerated. Discharge activity: Shower -You may shower. No tub baths if you have a wound or incision. Diet Instructions Adult Discharge Diet Diet Type: Return to previous diet Other Instructions Call provider for: Temperature -Temperature greater than 101 degrees F Call provider for: difficulty breathing or chest pain Call provider for: persistent dizziness or light-headedness Call provider for: redness, tenderness, or signs of infection (pain, swelling, redness, odor or green/yellow discharge around incision site) Post-Discharge Dressing Care: No dressing needed. Dressing Removal: No dressing needed. Discharge Medications: Current Medications TAKE these medications ALPRAZolam 0.25 mg tablet Commonly known as: XANAX Take 1 tablet (0.25 mg total) by mouth 2 (two) times a day as needed for anxiety artificial tears 0.3 % gel Commonly known as: SYSTANE Apply 1 drop to both eyes 4 (four) times a day as needed cholecalciferol 2,000 unit tablet Commonly known as: VITAMIN D-3 take 1 tablet by oral route every day cyanocobalamin 100 mcg tablet Commonly known as: Vitamin B-12 Take 100 mcg by mouth daily. ELIQUIS 5 mg tablet Generic drug: apixaban take 1 tablet by oral route 2 times every day loratadine 10 mg tablet Commonly known as: CLARITIN Take 10 mg by mouth daily as needed MAGNESIUM ORAL Take 2 capsules by mouth daily vitamin C 1,000 mg tablet Generic drug: ascorbic acid Take 2,000 mg by mouth daily Outpatient Follow-Up: Future Appointments Date Time Provider Department Center 12/13/2019 9:00 AM [facility] 12/27/2019 1:30 PM Ronald Castrejon MD [facility] Contact Information for Follow-ups Follow-up with provideras scheduled Next Steps: Follow up Instructions: as scheduled Questions: Instructions for follow-up (appointment date and time): as scheduled Reynaldo Flannery DO Specialty: Cardiology, Cardiovascular Disease, Internal Medicine, Clinical Cardiac Electrophysiology [address] [place] [id number] Next Steps: Follow up Instructions: Call for follow up appointment in 4-6 weeks Questions: Instructions for follow-up (appointment date and time): Call for follow up appointment in 4-6 weeks Cosigned by Reynaldo Flannery DO at 01/07/2019 1:46 PM CDT documented in this encounter Discharge Instructions * Attachments The following attachments cannot be sent through Care Everywhere. * After Heart Catheterization (Log Scaler) (Danish) documented in this encounter Medications at Time [...] (2,000 mg total) by mouth daily 08/12/2022 loratadine (CLARITIN) 10 mg tablet Take 10 mg by mouth daily as needed 07/23/2019 MAGNESIUM ORAL Take 2 capsules by mouth daily 07/18/2022 documented as of this encounter Discharge Disposition Disposition Code Departure Means Destination Discharge to home or self care documented in this encounter H&P Notes * Reynaldo Flannery DO - 01/06/2019 9:37 AM CDT I have reviewed the H&P, examined the patient, and endorse the findings as written. Plan of Care : Based on the above findings, I consider Abena Giron to be an acceptable risk for: Procedure(s): ATRIOVENTRICULAR (AV) NODE ABLATION 05410 Source Note - Reynaldo Flannery DO - 12/31/2018 3:00 PM CDT documented in this encounter Miscellaneous Notes * Plan of Care - Kia Bustos RN - 01/07/2019 12:21 PM CDT Problem: Health Behavior: Goal: Understanding of discharge needs will improve Outcome: Progressing Problem: Activity: Goal: Risk for activity intolerance will decrease Outcome: Progressing Problem: Lack of Knowledge: Goal: Knowledge of safety precautions will improve Outcome: Progressing Problem: Health Behavior: Goal: Ability to state signs and symptoms to report to health care provider will improve Outcome: Progressing Goals: Clinical Goals for the Shift: monitor tele, vs, labs, R groin site, plan for d/c Summary: pt vs & labs stable, 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 Will continue to monitor * Plan of Care - Maria Elena Bacon - 01/07/2019 3:07 AM CDT Goals: Clinical Goals for the Shift: monitor groin site, vss, d/c tomorrow Summary: Groin site soft, dry, intact. VSS on RA. Pt independent. Plan to D/C tomorrow. No complaints of groin related pain, only chronic back pain.. AV paced 80's. Problem: Health Behavior: Goal: Understanding of discharge needs will improve Outcome: Progressing Problem: Activity: Goal: Risk for activity intolerance will decrease Outcome: Progressing Problem: Lack of Knowledge: Goal: Knowledge of safety precautions will improve Outcome: Progressing Problem: Health Behavior: Goal: Ability to state signs and symptoms to report to health care provider will improve Outcome: Progressing * Plan of Care - Kia Bustos RN - 01/06/2019 4:03 PM CDT Problem: Health Behavior: Goal: Understanding of discharge needs will improve Outcome: Progressing Problem: Activity: Goal: Risk for activity intolerance will decrease Outcome: Progressing Problem: Lack of Knowledge: Goal: Knowledge of safety precautions will improve Outcome: Progressing Problem: Health Behavior: Goal: Ability to state signs and symptoms to report to health care provider will improve Outcome: Progressing Goals: Clinical Goals for the Shift: monitor tele, vs, labs, R groin site Summary: pt VS & labs stable, 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 Will continue to monitor * Post-Procedure Note - Reynaldo Flannery DO - 01/06/2019 10:05 AM CDT ATRIOVENTRICULAR (AV) NODE ABLATION 12724, PERIPROC PPM EVAL/REPROG 46771 Op Note Attending Pmp Project Manager: Reynaldo Flannery DO Primary: Reynaldo Flannery DO Pmp Project Manager Assistants: none CV Documenter: Melody Prado RN CV Scrub: Melvi Dutton RN CV Scraper Hand: RT Bobbi Date of Procedure: 01/06/2019 Specimens: No specimen collected in procedure Preoperative Diagnosis: afib with tachy Postoperative Diagnosis: same Name of Procedure: Procedure(s): ATRIOVENTRICULAR (AV) NODE ABLATION 52281 PERIPROC PPM EVAL/REPROG 84208 Findings: Successful AVN RFA with CHB, no escape at 30 bpm DDD PPM interrogated and reprogrammed with normal function Estimated Blood Loss: No blood loss documented. Intra-Procedural Fluids: See anesthesia notes Blood/Blood Products Transfused: none mls Implants: Nothing was implanted during the procedure Complications: None Condition on Discharge from the operating room was stable Reynaldo Flannery DO Date: 01/06/2019 Time: 10:05 AM documented in this encounter Plan of Treatment Not on file documented as of this encounter Procedures Procedure Name Priority Date/Time Associated Diagnosis Comments ECG 12-LEAD Routine 01/07/2019 7:46 AM CDT B CHECK SAMPLE STAT 01/06/2019 11:33 AM CDT TYPE AND SCREEN STAT 01/06/2019 11:26 AM CDT ECG 12-LEAD Routine 01/06/2019 10:21 AM CDT PERIPROC PPM EVAL/REPROG 83460 Routine 01/06/2019 9:28 AM CDT ATRIOVENTRICULAR (AV) NODE ABLATION Routine 01/06/2019 9:28 AM CDT documented in this encounter Results * ECG 12 lead (01/07/2019 7:46 AM CDT) 01/07/2019 7:46 AM CDT Narrative [facility] - 01/07/2019 10:16 AM CDT Vent Rate: 88 bpm RR Interval: 675 msec IL Interval: 186 msec QRS Duration: 160 msec QT Interval: 435 msec QTC Interval: 481 msec P-R-T [place]: 53 - -75 - 94 degrees ELECTRONIC ATRIAL PACEMAKER ELECTRONIC VENTRICULAR PACEMAKER ABNORMAL RHYTHM ECG Electronically Signed By: Guanakito Dorado MD, [facility] Reynaldo Flannery DO ECG ORDERABLES Final Re sult Performing Organization Address [facility] Co de Phone Number [facility] * Check Sample (01/06/2019 11:33 AM CDT) ABO Rh A Positive [facility] HCLL OTHER 01/06/2019 11:3 3 AM CDT 01/06/2019 11:39 AM CDT Reynaldo Flannery DO LAB BLOOD ORDERABLES Fin al Result Performing Organization Address City/[facility]/ZIP Co de Phone Number [facility] [address] [place] [address] * Type and screen (01/06/2019 11:26 AM CDT) Cuauhtemoc, indirect Negative [facility] ABO Rh A Positive [facility] Blood specimen (specimen) 01/06/2019 11:26 AM CDT 01/06/2019 11:[address] [facility] - 01/06/2019 12:15 PM CDT Has the patient had Daratumumab (Darzalex) in the past 6 months?->Unknown Reynaldo Flannery DO LAB BLOOD BANK TEST ORDE RABYAZAN Final Result Performing Organization Address City/[facility]/ZIP Co de Phone Number [facility] [address] [place] [address] * ECG 12 lead (01/06/2019 10:21 AM CDT) 01/06/2019 10:2 1 AM CDT Narrative [facility] - 01/06/2019 6:44 PM CDT Vent Rate: 85 bpm RR Interval: 705 msec IL Interval: 190 msec QRS Duration: 157 msec QT Interval: 454 msec QTC Interval: 496 msec P-R-T [place]: 193 - -78 - 93 degrees ELECTRONIC ATRIAL PACEMAKER ELECTRONIC VENTRICULAR PACEMAKER ABNORMAL RHYTHM ECG Compared with 09/29/2018 pacing is new Electronically Signed By: Yun Rhoades MD us Reynaldo Flannery DO ECG ORDERABLES Final Re sult Performing Organization Address [facility] Co de Phone Number [facility] [employer] [facility] * ATRIOVENTRICULAR (AV) NODE ABLATION, PERIPROC PPM EVAL/REPROG 31924 (01/06/2019 9:28 AM CDT) Anatomical Region Laterality Modality X-Ray Angiograph y Narrative 01/06/2019 10:08 AM CDT ATRIOVENTRICULAR (AV) NODE ABLATION 81290, PERIPROC PPM EVAL/REPROG 78622 ?Op Note ?? Attending Pmp Project Manager: eRynaldo Flannery, DO Primary: Reynaldo Flannery, DO ?? Pmp Project Manager Assistants: none ?? CV Documenter: Melody Praod RN CV Scrub: Melvi Dutton RN CV Scraper Hand: Jennifer Santos RT ?? Date of Procedure: 01/06/2019 ?? Specimens: No specimen collected in procedure ?? Preoperative Diagnosis: afib with tachy ?? Postoperative Diagnosis: same ?? Name of Procedure: Procedure(s): ATRIOVENTRICULAR (AV) NODE ABLATION 89463 PERIPROC PPM EVAL/REPROG 94341 ?? Findings: Successful AVN RFA with CHB, no escape at 30 bpm DDD PPM interrogated and reprogrammed with normal function ?? Estimated Blood Loss: No blood loss documented. ?? Intra-Procedural Fluids: See anesthesia notes ?? Blood/Blood Products Transfused: none mls ?? Implants: Nothing was implanted during the procedure ?? Complications: None ?? Condition on Discharge from the operating room was stable ?? Reynaldo Flannery, DO ?? Date: 01/06/2019 Time: 10:05 AM ?? Reynaldo Flannery DO CV ELECTROPHYSIOLOGY PRO CS Final Result documented in this encounter Visit Diagnoses Not on filedocumented in this encounter Administered Medications Inactive Administered Medications - up to 3 most recent administrations Medication Order MAR Action Action Date Dose Rate Site acetaminophen (TYLENOL) tablet 650 mg 650 mg, oral, Every 6 hours PRN, mild pain (1-3) or fever, Starting on Fri01/06/19 at 1928 Given 01/07/2019 8:35 AM CDT 650 mg Given 01/06/2019 9:09 PM CDT 650 mg apixaban (ELIQUIS) tablet 5 mg 5 mg, oral, 2 times daily, First dose on Fri01/06/19 at 1145, May crush and suspend in 60 ml of water, D5W, apple juice or apple sauce. If on heparin infusion, discontinue heparin infusion upon first administration of apixaban., Indications: atrial fibrillationIndications:atrial fibrillation Given 01/07/2019 8:35 AM CDT 5 mg Given 01/06/2019 9:09 PM CDT 5 mg Given 01/06/2019 12:49 PM CDT 5 mg famotidine (PEPCID) tablet 20 mg 20 mg, oral, Once, On Fri01/06/19 at 1615, For 1 dose Given 01/06/2019 4:20 PM CDT 20 mg lidocaine (XYLOCAINE) 10 mg/mL (1 %) injection As needed, Starting on Fri01/06/19 at 0909, Intra-Procedure (CV), Indications: Administration of Local AnesthesiaIndications:Administration of Local Anesthesia Given 01/06/2019 9:09 AM CDT 8 mL Right Groin sodium chloride 0.9% flush 0.5-20 mL 0.5-20 mL, intra-catheter, Every 8 hours scheduled, First dose on Fri01/06/19 at 1400, Recovery (CV), Flush volume based on line type and size. , Indications: FlushingIndications:Flushing Given 01/07/2019 6:21 AM CDT 10 mL Given 01/06/2019 9:09 PM CDT 10 mL Given 01/06/2019 12:50 PM CDT 10 mL sodium chloride 0.9% infusion 50 mL/hr, intravenous, Continuous, Starting on Fri01/06/19 at 0730 New Bag 01/06/2019 7:22 AM CDT 50 mL/hr 50 mL/hr documented in this encounter Discontinued Medications Medication Sig Discontinue Reason Start Date End Da te metoprolol XL (TOPROL-XL) 25 mg 24 hr tablet Take 25 mg by mouth 2 (two) times a day 09/09/2018 01/06/2019 mupirocin (BACTROBAN) 2 % nasal ointmentIndications:Met hicillin-Resistant S. Aureus Nasal Colonization Apply 1 application to each nostril 2 (two) times a day Use one-half of tube in each nostril twice daily for five (5) days. After application, press sides of nose together and gently massage. 01/06/2019 documented as of this encounter Active and Recently Administered Medications Times are shown in CDT. Scheduled Medication Order 01/05/2019 01/06/2019 01/07/2019 apixaban (ELIQUIS) tablet 5 mg 5 mg, oral, 2 times daily, First dose on Fri01/06/19 at 1145, May crush and suspend in 60 ml of water, D5W, apple juice or apple sauce. If on heparin infusion, discontinue heparin infusion upon first administration of apixaban., Indications: atrial fibrillation 1249 (Given - Provider: Kia Bustos RN)210 (Given - Provider: Maria Elena Bacon) 0835 (Given - Provider: Kia Bustos, BRAYAN) famotidine (PEPCID) tablet 20 mg (COMPLETED) 20 mg, oral, Once, On Fri01/06/19 at 1615, For 1 dose 1620 (Given - Provider: Kia Bustos RN) sodium chloride 0.9% flush 0.5-20 mL 0.5-20 mL, intra-catheter, Every 8 hours scheduled, First dose on Fri01/06/19 at 1400, Recovery (CV), Flush volume based on line type and size. , Indications: Flushing 1250 (Given - Provider: Kia Bustos RN)2109 (Given - Provider: Maria Elena Bacon) 0621 (Given - Provider: Maria Elena Bacon)1400 (Due) Continuous Medication Order 01/05/2019 01/06/2019 01/07/2019 sodium chloride 0.9% infusion 50 mL/hr, intravenous, Continuous, Starting on Fri01/06/19 at 0730 0722 (New Bag - Provider: Melvi Dutton, BRAYAN)0928 (Anesthesia Volume Adjustment - Provider: Jeaneth Judge CRNA) PRN Medication Order 01/05/2019 01/06/2019 01/07/2019 acetaminophen (TYLENOL) tablet 650 mg 650 mg, oral, Every 6 hours PRN, mild pain (1-3) or fever, Starting on Fri01/06/19 at 1928 2109 (Given - Provider: Maria Elena Bacon) 0835 (Given - Provider: Kia Bustos, BRAYAN) ALPRAZolam (XANAX) tablet 0.25 mg 0.25 mg, oral, 2 times daily PRN, anxiety, Starting on Fri01/06/19 at 1108 lidocaine (XYLOCAINE) 10 mg/mL (1 %) injection (CANCELED) As needed, Starting on Fri01/06/19 at 0909, Intra-Procedure (CV), Indications: Administration of Local Anesthesia 0909 (Given - Provider: Reynaldo Flannery DO) loratadine (CLARITIN) tablet 10 mg 10 mg, oral, Daily PRN, allergies, Starting on Fri01/06/19 at 1108 documented in this encounter Orders Medications Ordered That Flaco ht Not Have Been Administered Count Last Ordered Date First Ordered Date ALPRAZolam (XANAX) tablet 0.25 mg 1 019 loratadine (CLARITIN) tablet 10 mg 1 2018 Diet Count Last Ordered Date First Orde red Date ADULT DISCHARGE DIET 1 01/07/2019 Nursing Count Last Ordered Date First Orde red Date DISCHARGE ACTIVITY 5 01/07/2019 DISCHARGE CALL PROVIDER 4 01/07/2019 DISCHARGE DRESSING 1 01/07/2019 FOLLOW UP WITH PROVIDER 2 01/07/2019 ESPINOZA CATHETER - DISCONTINUE 1 01/06/2019 Transfer Count Last Ordered Date First Orde red Date TRANSFER PATIENT 2 01/06/2019 CORE MEASURES Count Last Ordered Date First Ord ered Date REASON FOR NO VTE PROPHYLAXIS AT ADMISSION 1 01/06/2019 documented in this encounter Care Teams Internship Coordinator Relationship Specialty Start Date End Date Ronald Castrejon MD PCP - General 06/21/16 07/17/22 Reynaldo Flannery DO Consulting Physician Cardiology 09/26/17 Guanakito Holland MD Consulting Physician Cardiovascular Disease 07/29/18 Annel Curiel, BRAYAN [address] [place] [address] [address] [place] [address] Heel Sprayer 11/18/18 05/16/19 documented as of this encounter
--- OUTSIDE RECORDS SUMMARY | 2024-04-11 06:38 | XMS_ITS | Encounter Summary ---
Author Organization [facility] Healthcare Address [address] [place] [address] Care Team Providers Care Social Director Name Role Phone Ronald Castrejon MD Primary Care Provider [phone] Reynaldo Flannery DO Unavailable [phone] Guanakito Holland MD Unavailable Annel Curiel RN Unavailable Reason for Visit * Reason Comments Abdominal Pain Encounter Details Date Type Department Care Team (Late st Contact Info) Description 03/13/2019 10:49 PM [facility] - 03/14/2019 4:07 AM [facility] Emergency [facility] Emergency Department [address] [place] [address] [place] [address] [place] [address] Mesenteric panniculitis (CMS/HCC) (Primary Dx) Discharge Disposition: Discharge to home or self [...] and Family Once a week 03/05/2019 [facility]ends [employer] Not on file 03/05 Active Member [...] on file Legal Sex Female 11:18 AM LAW FIRM PARTNER Gender Identity Female 10/09/2022 9:08 AM CDT Sexual Orientation Choose not to disclose 2022 9:08 AM CDT documented as of this encounter Last Filed Vital Signs Vital Sign Reading Time Taken Comments Blood Pressure 135/83 03/14/2019 12:30 AM LAW FIRM PARTNER Pulse 89 03/14/2019 12:35 AM LAW FIRM [employer]NER Temperature 36.9 ??C (98.4 ??F) 03/13/2019 10:[address] Respiratory Rate 24 03/14/2019 12:35 AM LAW FIRM PARTNER Oxygen Saturation 97% 03/14/2019 12:35 AM LAW FIRM PARTNER Inhaled Oxygen Concentration - - Weight 75.8 kg (167 lb) 03/13/2019 10:47 PM LAW FIRM [employer]NER Height 154.9 cm (5' 1 ) 03/13/2019 10:47 PM LAW FIRM [employer]NER Body Mass Index 31.55 03/13/2019 10:47 PM LAW FIRM [employer]NER documented in this encounter Discharge Diagnoses Diagnosis 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 Essential (primary) hypertension - ESSENTIAL (PRIMARY) HYPERTENSION Unspecified essential hypertension Hyperlipidemia, unspecified - HYPERLIPIDEMIA, UNSPECIFIED Atherosclerotic heart disease of enterprise coronary artery without angina pectoris - ATHEROSCLEROTIC HEART DISEASE OF [place] CORONARY ARTERY WITHOUT ANGINA PECTORIS Unspecified atrial fibrillation (HCC) - UNSPECIFIED ATRIAL FIBRILLATION Presence of cardiac pacemaker - PRESENCE OF CARDIAC PACEMAKER Cardiac pacemaker in situ Personal history of nicotine dependence - PERSONAL HISTORY OF NICOTINE DEPENDENCE documented in this encounter Medications at Time [...] mouth daily 90 tablet 3 02/15/2019 01/31/2020 HYDROcodone-acet aminophen (NORCO) 5-325 mg per tabletIndication s:Pain Take 0.5 tablets by mouth every 6 (six) hours as needed for pain (1 tablet PO PRN pain) 15 tablet 03/14/2019 01/31/2020 loratadine (CLARITIN) 10 mg tablet Take 10 mg by mouth daily as needed 07/23/2019 MAGNESIUM ORAL Take 2 capsules by mouth daily 07/18/2022 documented as of this encounter Ordered Prescriptions Prescription Sig Dispense Quantity Refills Last Filled Start Date End Date HYDROcodone-acetam inophen (NORCO) 5-325 mg per tabletIndications: Pain Take 0.5 tablets by mouth every 6 (six) hours as needed for pain (1 tablet PO PRN pain) 15 tablet 03/14/2019 0 documented in this encounter Discharge Disposition Disposition Code Departure Means Destination Discharge to home or self care documented in this encounter ED Notes * Jerry Robledo MD - 03/14/2019 1:13 AM CST HPI Chief Complaint Patient presents with ??? Abdominal Pain 1:27 AM Abena Giron is a 78 y.o. female with a past medical history of GERD, depression, HTN, CAD, sleep apnea, arthritis, DJD, hyperlipidemia, atrial fibrillation, aortic aneurysm, right oophorectomy, cholecystectomy, heart cath with stents, and cardiac pacemaker placement who presents to the Emergency Department with a complaint of abdominal pain that onset today. The patient states that she felt a knot in the epigastric area earlier today, but not at this time. She reports that she hada colonoscopy 1.5 years ago. The patient denies any other medical complaints, or any other pertinent symptoms at this time. Patient History Patient Active Problem List Diagnosis Date Noted ??? Chronic CHF (CMS/HCC) 09/29/2018 ??? GENNY (obstructive sleep apnea) 09/29/2018 ??? Sinus node dysfunction (CMS/HCC) 09/14/2018 ??? NSTEMI (non-ST elevated myocardial infarction) (CMS/HCC) 07/29/2018 ??? B12 deficiency 12/23/2017 ??? Atrial fibrillation with rapid ventricular response (CMS/HCC) 09/25/2017 ??? Abdominal aortic aneurysm (AAA) without rupture (CMS/HCC) 06/25/2017 ??? Anxiety 03/12/2017 ??? Coronary artery disease involving enterprise coronary artery of enterprise heart without angina pectoris 12/25/2016 ??? Paroxysmal atrial fibrillation (CMS/HCC) 12/25/2016 ??? Chronic GERD 12/25/2016 ??? Hypertension 01/28/2013 Class: Chronic ??? Hyperlipidemia 01/28/2013 Class: Chronic ??? Osteoarthritis 01/20/2013 Class: Chronic Past Medical History: Diagnosis Date ??? Adiposity [...] Depression; ??? Hypertension Brother Hypertension; Social History Tobacco Use ??? Smoking status: Former Smoker Last attempt to quit: 1975 Years since quittin.0 ??? Smokeless tobacco: Never Used Substance Use Topics ??? Alcohol use: No ??? Drug use: No Social History Patient does not qualify to have social determinant information on file (likely too young). Social History Narrative Agrees to blood/blood products: Y Agrees to blood/blood products: Y Review of Systems Review of Systems Constitutional: Negative for chills and fever. HENT: Negative for congestion, ear pain, rhinorrhea and sore throat. Eyes: Negative for pain and visual disturbance. Respiratory: Negative for cough and shortness of breath. Cardiovascular: Negative for chest pain and palpitations. Gastrointestinal: Positive for abdominal pain. Negative for diarrhea, nausea and vomiting. Genitourinary: Negative for dysuria and hematuria. Musculoskeletal: Negative for arthralgias, back pain, neck pain and neck stiffness. Skin: Negative for color change and rash. Neurological: Negative for dizziness, seizures and syncope. All other systems reviewed and are negative. Physical Exam ED Triage Vitals [03/13/192246] Temp Pulse Resp BP SpO2 36.9 ??C (98.4 ??F) 104 26 (!) 197/110 98 % Temp src Heart Rate Source Patient Position BP Location FiO2 (%) Oral Monitor;Right;Pulse Oximetry Sitting Right arm -- Physical Exam Vitals signs and nursing note reviewed. Constitutional: General: She is not in acute distress. Appearance: She is well-developed. HENT: Head: Normocephalic and atraumatic. Eyes: Extraocular Movements: Extraocular movements intact. Conjunctiva/sclera: Conjunctivae normal. Pupils: Pupils are equal, round, and reactive to light. Neck: Musculoskeletal: Neck supple. Cardiovascular: Rate and Rhythm: Normal rate and regular rhythm. Heart sounds: Normal heart sounds. No murmur. Pulmonary: Effort: Pulmonary effort is normal. No respiratory distress. Breath sounds: Normal breath sounds. Abdominal: General: Bowel sounds are normal. There is no distension. Palpations: Abdomen is soft. Tenderness: There is no guarding. Comments: Mid abdominal tenderness to palpation. Skin: General: Skin is warm and dry. Neurological: Mental Status: She is alert and oriented to person, place, and time. MDM Vitals: 03/13/19 2330 03/13/19 2345 03/14/19 0030 03/14/19 0035 BP: 133/80 135/83 BP Location: Patient Position: Pulse: 98 90 86 89 Resp: (!) 34 22 (!) 32 24 Temp: TempSrc: SpO2: 97% 97% 98% 97% Weight: Height: Labs Reviewed CBC WITH AUTO DIFFERENTIAL - Abnormal Result Value WBC 8.1 Hgb 13.6 Hct 42.6 Plt 251 MPV 10.9 RBC 4.42 MCV 96.4 MCH 30.8 MCHC 31.9 (*) RDW CV 12.9 RDW SD 46.3 NRBC abs 0.00 TROPONIN T 5TH GEN SERIES (BASELINE, 3HR, 6HR) - Abnormal Troponin T, Baseline 5th Gen 19 (*) COMPREHENSIVE METABOLIC PANEL Sodium 139 Potassium, pl 4.5 Chloride 102 CO2 24 Anion gap 13 BUN 8 Creatinine 0.60 Glucose 124 Calcium 9.2 Bilirubin, total 0.5 Protein, pl 7.2 Albumin 4.1 Alk phos 43 ALT 21 AST 36 LIPASE Lipase 28 DIFFERENTIAL AUTO Neutrophil abs 4.7 Imm gran abs 0.0 Lymphocyte abs 2.6 Monocyte abs 0.6 Eosinophil abs 0.2 Basophil abs 0.0 Neutrophil pct 57.5 Imm gran pct 0.6 Lymphocyte pct 31.5 Monocyte pct 7.6 Eosinophil pct 2.2 Basophil pct 0.6 EGFR GFR 87 AMYLASE Amylase 38 TROPONIN T, 3 HOUR 5TH GEN Troponin T, 3 Hr 5th Gen 13 Troponin T, 3 Hr Delta -6 CT Abdomen Pelvis W Contrast Final Result Mild central mesenteric edema, probable mesenteric panniculitis but could be related to liver cardiac or renal disease or mesenteric inflammation. Clinical correlation suggested. Small bilateral pleural effusions Stat report by [facility] Electronically signed by: Baljit Fernández M.D. [facility] ED Course as of Mar 15 2041 Time: 03/14 138 Comment: Pre-hypertension/Hypertension: The patient has been informed that they may have pre-hypertension or Hypertension based on a blood pressure reading in the Emergency Department. I recommend that the patient call the primary care provider listed on their discharge instructions or a physician of their choice this week to arrange follow up for further evaluation of possible pre- hypertension or Hypertension. By: Iveth Payne Time: 03/14 0300 Comment: Discussed patient care with Dr. Maya, [facility] Hospitalist who states that patient canbe discharged. By: Iveth Payne Mesenteric panniculitis (CMS/HCC) This note was prepared by Iveth Payne, acting as a Scribe for Jerry Robledo MD. I electronically signed this note at 1:13 AM on 03/14/2019. I, Jerry Robledo MD, personally performed the services described in this documentation, reviewed and edited the documentation which was dictated to the scribe in my presence, and it accurately records my words and actions. Jerry Robledo MD 03/15/192040 FIRM PARTNER * Dianne Philip, BRAYAN - 03/13/2019 10:45 PM CST Pt came in with the complaint of abd pain- she reports that it feels like she has pain in her abd that keeps her from catching her breath FIRM PARTNER documented in this encounter Plan of Treatment Not on file documented as of this encounter Procedures Procedure Name Priority Date/Time Associated Diagnosis Comments TROPONIN T, 3 HOUR 5TH GEN Timed 03/14/2019 2:[address] ABDOMEN PELVIS W CONTRAST ED 03/14/2019 1:22 AM LAW FIRM [employer]NER TROPONIN T 5TH GEN SERIES (BASELINE, 3HR, 6HR) STAT 03/14/2019 12:12 AM LAW FIRM PARTNER EGFR STAT 03/13/2019 11:22 PM LAW FIRM [employer]NER DIFFERENTIAL AUTO STAT 03/13/2019 11: 22 PM LAW FIRM PARTNER CBC WITH AUTO DIFFERENTIAL STAT 03/13/2019 11:22 PM LAW FIRM [employer]NER LIPASE STAT 03/13/2019 11:22 PM LAW FIRM [employer]NER AMYLASE STAT 03/13/2019 11:22 PM LAW FIRM [employer]NER COMPREHENSIVE METABOLIC PANEL STAT 03/13/2019 11:22 PM LAW FIRM PARTNER ECG 12-LEAD STAT 03/13/2019 10:52 PM LAW FIRM [employer]NER documented in this encounter Results * Troponin T, 3 Hour 5th Gen (03/14/2019 2:34 AM LAW FIRM PARTNER) Troponin T, 3 Hr 5th Gen 13 6 - 14 ng/L [facility] Trop[facility] T, 3 Hr Delta -6 ng/L [facility] Blood specimen (specimen) 03/14/2019 2:34 AM LAW FIRM PARTNER 03/14/2019 3:00 AM LAW FIRM PARTNER us Jerry Robledo MD LAB BLOOD ORDERABLES Final Result ANDREW DAWN [address] Department [place] [address] * CT Abdomen Pelvis W Contrast (03/14/2019 1:22 AM LAW FIRM PARTNER) Anatomical Region Laterality Modality Body N/A Computed Tomogra phy 03/14/2019 8:11 AM LAW FIRM PARTNER Impressions 03/14/2019 8:15 AM LAW FIRM PARTNER Mild central mesenteric edema, probable mesenteric panniculitis but could be related to liver cardiac or renal disease or mesenteric inflammation. ??Clinical correlation suggested. Small bilateral pleural effusions Stat report by [facility] Electronically signed by: Baljit Fernández M.D. Narrative 03/14/2019 8:15 AM LAW FIRM PARTNER EXAMINATION: CT ABDOMEN AND PELVIS WITH IV CONTRAST HISTORY: OTHER abdominal pain TECHNIQUE: Transaxial imaging through the abdomen and pelvis was performed with 2-D reformats following the intravenous administration of approximately 100 mL of Optiray-350. FINDINGS: There are small bilateral pleural effusions. ??There is no sign of pneumoperitoneum. The liver was unremarkable. The gallbladder is absent. ??The spleen and pancreas were unremarkable. There is a normal appearance of both adrenal glands and both kidneys. There is mesenteric edema centrally suggesting panniculitis or early inflammatory process The small bowel pattern is not significantly dilated and there are no significant air-fluid levels. ??There is a normal-appearing appendix. There is moderate fecal loading of the colon with diverticulosis. Small fat-containing right inguinal hernia There is trace cul-de-sac fluid. ??The urinary bladder as imaged is unremarkable. ??Prominent atherosclerotic vascular calcifications are present in the aorta and visceral arteries There are degenerative spine changes with generalized spondylosis. Procedure Note Baljit Fernández MD - 03/14/2019 EXAMINATION: CT ABDOMEN AND PELVIS WITH IV CONTRAST HISTORY: OTHER abdominal pain TECHNIQUE: Transaxial imaging through the abdomen and pelvis was performed with 2-D reformats following the intravenous administration of approximately 100 mL of Optiray-350. FINDINGS: There are small bilateral pleural effusions. There is no sign of pneumoperitoneum. The liver was unremarkable. The gallbladder is absent. The spleen and pancreas were unremarkable. There is a normal appearance of both adrenal glands and both kidneys. There is mesenteric edema centrally suggesting panniculitis or early inflammatory process The small bowel pattern is not significantly dilated and there are no significant air-fluid levels. There is a normal-appearing appendix. There is moderate fecal loading of the colon with diverticulosis. Small fat-containing right inguinal hernia There is trace cul-de-sac fluid. The urinary bladder as imaged is unremarkable. Prominent atherosclerotic vascular calcifications are present in the aorta and visceral arteries There are degenerative spine changes with generalized spondylosis. IMPRESSION: Mild central mesenteric edema, probable mesenteric panniculitis but could be related to liver cardiac or renal disease or mesenteric inflammation. Clinical correlation suggested. Small bilateral pleural effusions Stat report by [facility] Electronically signed by: Baljit Fernández M.D. Jerry Robledo MD IMG CT PROCEDURES Final Res ult * (ABNORMAL) Troponin T 5th Gen series (Baseline, 3hr, 6hr) (03/14/2019 12:12 AM LAW FIRM PARTNER) Troponin T, Baseline 5th Gen 19(H) 6 - 14 ng/L ANDREW Blood specimen (specimen) 03/14/2019 12:12 AM LAW FIRM PARTNER 03/14/2019 12:24 AM LAW FIRM PARTNER Jerry Robledo MD LAB BLOOD ORDERABLES Final Result ANDREW [address] Department [place] [address] * Amylase (03/13/2019 11:22 PM LAW FIRM PARTNER) Pathologist [facility] Amylase 38 30 - 99 Units/L ANDREW Blood specimen (specimen) 03/13/2019 11:22 PM LAW FIRM PARTNER 03/14/2019 1:00 AM LAW FIRM PARTNER Jerry Robledo MD LAB BLOOD ORDERABLES Final Result Performing Organization Address [facility] Co de Phone Number ANDREW [address] Department [place] [place] [address] * eGFR (03/13/2019 11:22 PM LAW FIRM PARTNER) eGFR 87 mL/min/1.7 3 m2 [facility] Comment: Interpretive Data Reference Interval Normal ?>/= 90 mL/min/1.73m2 Mildly decreased* ? 60 - 89 mL/min/1.73m2 Mildly to moderately decreased ?45 - 59 mL/min/1.73m2 Moderately to severely decreased ??30 - 44 mL/min/1.73m2 Severely decreased ?15 - 29 mL/min/1.73m2 Kidney Failure ?< 15 ??mL/min/1.73m2 *Relative to young adult level If -[place] multiply value by 1.16. Estimated glomerular filtration [...] was last reviewed 2015. Blood specimen (specimen) 03/13/2019 11:22 PM LAW FIRM PARTNER 03/13/2019 11:22 PM LAW FIRM PARTNER Marli Silveira MD LAB BLOOD ORDERABLES Fi nal Result Performing Organization Address [facility]/ZIP Co de Phone Number [facility] [address] Department [place] [address] * Differential, auto (03/13/2019 11:22 PM LAW FIRM PARTNER) Neutrophil abs 4.7 1.7 - 6.5 K/cumm CERNER Imm gran abs 0.0 0.0 - 0.1 K/cumm C[facility]ER Lymphocyte abs 2.6 0.8 - 3.3 K/cumm C[facility]ER Monocyte abs 0.6 0.2 - 0.8 K/cumm CERNER Eosinophil abs 0.2 0.0 - 0.5 K/cumm CERNER Basophil abs 0.0 0.0 - 0.1 K/cumm CERNER Neutrophil pct 57.5 % CERNER Comment: Interpretive Data Percent cell count reference ranges are not reported, since discordance with absolute values may lead to misinterpretation of CBC data. Current Interpretive Data was last revised on 2017. Imm gran pct 0.6 % CERNER Comment: Interpretive Data Percent cell count reference ranges are not reported, since discordance with absolute values may lead to misinterpretation of CBC data. Current Interpretive Data was last revised on 2017. Lymphocyte pct 31.5 % C[facility]ER Comment: Interpretive Data Percent cell count reference ranges are not reported, since discordance with absolute values may lead to misinterpretation of CBC data. Current Interpretive Data was last revised on 2017. Monocyte pct 7.6 % C[facility]ER Comment: Interpretive Data Percent cell count reference ranges are not reported, since discordance with absolute values may lead to misinterpretation of CBC data. Current Interpretive Data was last revised on 2017. Eosinophil pct 2.2 % CERNER Comment: Interpretive Data Percent cell count reference ranges are not reported, since discordance with absolute values may lead to misinterpretation of CBC data. Current Interpretive Data was last revised on 2017. Basophil pct 0.6 % CERNER Comment: Interpretive Data Percent cell count reference ranges are not reported, since discordance with absolute values may lead to misinterpretation of CBC data. Current Interpretive Data was last revised on 2017. Blood specimen (specimen) 03/13/2019 11:22 PM LAW FIRM PARTNER 03/13/2019 11:22 PM LAW FIRM PARTNER Marli Silveira MD LAB BLOOD ORDERABLES Fi nal Result ANDREW DAWN [address] Department [place] [address] * Lipase (03/13/2019 11:22 PM LAW FIRM PARTNER) Lipase 28 10 - 99 Units/L [facility] Blood specimen (specimen) 03/13/2019 11:22 PM LAW FIRM PARTNER 03/13/2019 11:22 PM LAW FIRM PARTNER us Marli Silveira MD LAB BLOOD ORDERABLES Fi nal Result Performing Organization Address [facility] Co de Phone Number ANDREW DAWN [address] Department [place] [address] * Comprehensive metabolic panel (03/13/2019 11:22 PM LAW FIRM PARTNER) Sodium 139 135 - 145 mmol/L [facility] Potassium, pl 4.5 3.3 - 4.9 mmol/L [facility] Comment:Hemolysis present. R esults may be affected. Chloride 102 97 - 110 mmol/L [facility] CO2 24 22 - 32 mmol/L [facility] Anion gap 13 2 - 15 mmol/L [facility] BUN 8 8 - 25 mg/dL C[facility] Creatinine 0.60 0.60 - 1.10 mg/dL [facility] Glucose 124 70 - 199 mg/dL [facility] Comment: [...] classification and Diagnosis of Diabetes Diabetes Care 2017;40 (Suppl. 1):S11. Current interpretive data was last revised 2017. Calcium 9.2 8.5 - 10.3 mg/dL [facility] Bilirubin, total 0.5 0.1 - 1.2 mg/dL [facility] CH Protein, pl 7.2 6.5 - 8.5 g/dL [facility] CH Albumin 4.1 3.5 - 5.0 g/dL [facility] Alk phos 43 40 - 130 Units/L [facility] ALT 21 7 - 45 Units/L [facility] AST 36 10 - 45 Units/L [facility] CH Comment:Hemolysis present. R esults may be affected. Blood specimen (specimen) 03/13/2019 11:22 PM LAW FIRM PARTNER 03/13/2019 11:22 PM LAW FIRM PARTNER Marli Silveira MD LAB BLOOD ORDERABLES Fi nal Result ANDREW [address] [employer] [place] [address] * (ABNORMAL) CBC with auto differential (03/13/2019 11:22 PM LAW FIRM PARTNER) Pathologist [facility] WBC 8.1 3.8 - 9.9 K/cumm [facility] Hgb 13.6 11.9 - 15.5 g/dL [facility] CH Hct 42.6 35.6 - 45.5 % [facility] CH Plt 251 150 - 400 K/cumm [facility] CH MPV 10.9 9.1 - 12.3 fL [facility] CH RBC 4.42 3.90 - 5.20 M/cumm C[facility] CH MCV 96.4 81.3 - 96.4 fL C[facility] CH MCH 30.8 27.1 - 33.3 pg CERNER MCHC 31.9(L) 32.3 - 35.7 g/dL C[facility] CH RDW CV 12.9 11.1 - 14.9 % C[facility]ER CH RDW SD 46.3 35.7 - 48.1 fL C[facility] CH NRBC abs 0.00 0.00 - 0.01 K/cumm C[facility] CH Blood specimen (specimen) 03/13/2019 11:22 PM LAW FIRM PARTNER 03/13/2019 11:22 PM LAW FIRM PARTNER Marli Silveira MD LAB BLOOD ORDERABLES Fi nal Result [facility] [address] [place] [address] * ECG 12 lead (03/13/2019 10:52 PM LAW FIRM PARTNER) 03/13/2019 10:5 2 PM LAW FIRM PARTNER Narrative [facility] - 03/14/2019 9:32 AM LAW FIRM PARTNER Vent Rate: 91 bpm RR Interval: 656 msec NC Interval: 187 msec QRS Duration: 160 msec QT Interval: 400 msec QTC Interval: 449 msec P-R-T [place]: 136 - -66 - 91 degrees ELECTRONIC ATRIAL PACEMAKER ELECTRONIC VENTRICULAR PACEMAKER ABNORMAL RHYTHM ECG Electronically Signed By: Dr. 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 PRN Medication Order 03/12/2019 03/13/2019 03/14/2019 ioversol (OPTIRAY 350) syringe syringe 100 mL (COMPLETED) 100 mL, intravenous, Once in imaging, contrast, Starting on 03/14/19 at 0123, For 1 dose 0124 (Given - Provid er: Katelyn Charles, RT) documented in this encounter Orders Medications Ordered That Flaco ht Not Have Been Administered Count Last Ordered Date First Ordered Date ioversol (OPTIRAY 350) syrin ge syringe 100 mL 1 03/14/2019 documented in this encounter Care Teams Social Director Relationship Specialty Start Date End Date Ronald Castrejon MD PCP - General 06/21/16 07/17/22 Reynaldo Flannery DO Consulting Physician Cardiology 09/26/17 Guanakito Holland MD Consulting Physician Cardiovascular Disease 07/29/18 Annel Curiel, BRAYAN [address] [place] [address] Depot Manager 11/18/18 05/16/19 documented as of this encounter
--- OUTSIDE RECORDS SUMMARY | 2024-04-11 06:38 | XMS_ITS | Encounter Summary ---
Author Organization [facility] Address [address] [place] [address] Care Team Providers Care Environmental Health Aide Name Role Phone Ronald Castrejon MD Primary Care Provider [phone] Reynaldo Flannery DO Unavailable Guanakito Holland MD Unavailable [phone] Reason for Referral * Diagnostic Imaging (Routine) - Closed Specialty Diagnoses / Procedures Referred By Danita moctezuma Referred To Contact Radiology Procedures CT Chest Abdomen Pelvis W Contrast [facility] [address] [place] [address] [address] [place] [address] Phone: tel: fax: Referral ID Status Reason Start Date Expiration Date Visits Re quested Visits Authorized [id number] Closed 02/01/2020 03/02/2021 1 1 LE CHECKER Encounter Details Date Type Department Care Team (Late st Contact Info) Description 02/01/2020 Orders Only [facility] [address] [place] [address] [address] [place] [address] Rosalinda Joseph MD [facility] [place] [address] Social History Tobacco Use Types Packs/Day [...] and Family Once a week 03/05/2019 Attends Jainism Services Not on file 03/05 Active Member [...] on file 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 Gender Identity Female 10/09/2022 9:08 AM CDT Sexual Orientation Choose not to disclose 2022 9:08 AM CDT documented as of this encounter Plan of Treatment Not on file documented as of this encounter Procedures Procedure Name Priority Date/Time Associated Diagnosis Comments CT CHEST ABDOMEN PELVIS W CONTRAST Schedule Routine, Read Routine (OP Routine) 01/04/2020 documented in this encounter Results * CT Chest Abdomen Pelvis W Contrast (01/04/2020) Anatomical Region Laterality Modality Body N/A Computed Tomogra phy us Historical Provider MD ALTAMIRANO CT PROCEDURES Final R esult documented in this encounter Visit Diagnoses Not on filedocumented in this encounter Care Teams Environmental Health Aide Relationship Specialty Start Date End Date Ronald Castrejon MD PCP - General 06/21/16 07/17/22 Reynaldo Flannery DO Consulting Physician Cardiology 09/26/17 Guanakito Holland MD Consulting Physician Cardiovascular Disease 07/29/18 documented as of this encounter
--- OUTSIDE RECORDS SUMMARY | 2024-04-11 06:38 | XMS_ITS | Encounter Summary ---
Author Organization [facility] Address [address] [place] [address] Care Team Providers Care Associate Property Manager Name Role Phone Ronald Castrejon MD Primary Care Provider [phone] Reynaldo Flannery DO Unavailable [phone] Guanakito Holland MD Unavailable [phone] Encounter Details Date Type Department Care Team (Late st Contact Info) Description 09/17/2019 Telephone [facility] [address] [facility] [address] [place] [address] Ronald Castrejon MD [address] [place] [address] [address] [place] [id number] Social History Tobacco Use Types Packs/Day Years [...] and Family Once a week 03/05/2019 Attends [employer] Not on file 03/05 Active Member [...] on file 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 Ok to cancel ? documented in this encounter Plan of Treatment Not on file documented as of this encounter Visit Diagnoses Not on filedocumented in this encounter Care Teams Associate Property Manager Relationship Specialty Start Date End Date Ronald Castrejon MD PCP - General 06/21/16 07/17/22 Reynaldo Flannery DO Consulting Physician Cardiology 09/26/17 Guanakito Holland MD Consulting Physician Cardiovascular Disease 07/29/18 documented as of this encounter
--- OUTSIDE RECORDS SUMMARY | 2024-04-11 06:38 | XMS_ITS | Encounter Summary ---
Author Organization [facility] Address [address] [place] [address] Care Team Providers Care Direct Sales Professional Name Role Phone Ronald Castrejon MD Primary Care Provider [phone] Reynaldo Flannery DO Unavailable [phone] Guanakito Holland MD Unavailable [phone] Reason for Referral * (Routine) - Closed Specialty Diagnoses / Procedures Referred By Contac t Referred To Contact Procedures Transthoracic Echo Complete W Doppler/CF [facility] [address] [place] [address] [address] [place] [address] Phone: tel: fax: Referral ID Status Reason Start Date Expiration Date Visits Re quested Visits Authorized [id number] Closed 01/12/2020 02/10/2021 1 1 Encounter Details Date Type Department Care Team (Late st Contact Info) Description 01/12/2020 Orders Only [facility] [address] [place] [address] [address] [place] [address] Rosalinda Joseph MD [facility] [place] [address] Social History Tobacco Use Types [...] on file 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 Gender Identity Female 10/09/2022 9:08 AM CDT Sexual Orientation Choose not to disclose 2022 9:08 AM CDT documented as of this encounter Plan of Treatment Not on file documented as of this encounter Procedures Procedure Name Priority Date/Time Associated Diagnosis Comments TRANSTHORACIC ECHO (TTE) COM PLETE W DOPPLER/CF Routine 01/06/2020 documented in this encounter Results * Transthoracic Echo Complete W Doppler/CF (01/06/2020) Anatomical Region Laterality Modality Ultrasound us Historical Provider CV ECHO PROCEDURES Final Result documented in this encounter Visit Diagnoses Not on filedocumented in this encounter Care Teams Direct Sales Professional Relationship Specialty Start Date End Date Ronald Castrejon MD PCP - General 06/21/16 07/17/22 Reynaldo Flannery DO Consulting Physician Cardiology 09/26/17 Guanakito Holland MD Consulting Physician Cardiovascular Disease 07/29/18 documented as of this encounter
--- OUTSIDE RECORDS SUMMARY | 2024-04-11 06:38 | XMS_ITS | Encounter Summary ---
Author Organization [facility] Address [address] [place] [address] Care Team Providers Care Saw Runner Name Role Phone Ronald Castrejon MD Primary Care Provider [phone] Reynaldo Flannery DO Unavailable [phone] Guanakito Holland MD Unavailable Annel Curiel RN Unavailable Encounter Details Date Type Department Care Team (Latest Contact Info) Description 01/06/2019 6:47 AM CDT - 01/07/2019 2:38 PM CDT Hospital Encounter [facility] [address] [place] [address] Reynaldo Flannery, DO [address] [place], [place] [id number] Discharge Disposition: Discharge to home or self [...] on file Legal Sex Female 11:18 [address] FORMS Gender Identity Female 10/09/2022 9:08 AM CDT Sexual Orientation Choose not to disclose 2022 9:08 AM CDT documented as of this encounter Last Filed Vital Signs Vital Sign Reading Time Taken Comments Blood Pressure 137/88 01/07/2019 7:40 AM CDT Pulse 86 01/07/2019 11:00 AM CDT Temperature 36.9 ??C (98.5 ??F) 01/07/2019 7:40 AM CD T Respiratory Rate 16 01/07/2019 7:40 AM CDT Oxygen Saturation 99% 01/07/2019 7:40 AM CDT Inhaled Oxygen Concentration - - Weight 77.6 kg (171 lb 1.2 oz) 01/07/2019 3:45 A M CDT Height 154.9 cm (5' 1 ) 01/06/2019 7:16 AM CDT Body Mass Index 32.32 01/06/2019 7:16 AM CDT documented in this encounter Discharge Diagnoses Diagnosis Paroxysmal atrial fibrillation (CMS/HCC) (HCC) - PAROXYSMAL ATRIAL FIBRILLATION Atrial fibrillation [facility] (current) use of anticoagulants - ALF (CURRENT) USE OF ANTICOAGULANTS Long-term (current) use of anticoagulants Presence of cardiac pacemaker - PRESENCE OF CARDIAC PACEMAKER Cardiac pacemaker in situ Other specified postprocedural states - OTHER SPECIFIED POSTPROCEDURAL STATES Other halfway (current) drug therapy - OTHER HR BUSINESS PARTNER CONSULTANT (CURRENT) DRUG THERAPY documented in this encounter Discharge Summaries * Prabhu Ribeiro NP - 01/07/2019 11:37 AM CDT Inpatient Discharge Summary BRIEF OVERVIEW Admitting Provider: Reynaldo Flannery DO Discharge Provider: Reynaldo Flannery DO Primary Care Physician at Discharge: Ronald Castrejon MD [phone] Admission Date: 01/06/2019 Discharge Date: 01/07/2019 Admission Location: [facility] Primary Discharge Diagnosis: Atrial fibrillation Secondary Discharge [...] Procedures Performed: Procedure(s): ATRIOVENTRICULAR (AV) NODE ABLATION 92344 PERIPROC PPM EVAL/REPROG 86229 Other Procedures: Pertinent Test Results: Discharge Details Physical Exam at Discharge: Discharge Condition: stable Pulse: 82 Resp: 16 BP: 137/88 Temp: 36.9 ??C (98.5 ??F) Weight: 77.6 kg (171 lb 1.2 oz) Pertinent Exam Findings at Discharge: Neuro: alert and oriented x3 Heart : S1S2 RRR Lungs: CTA bilaterally Extremities: 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, no bleeding or hematoma Discharge Disposition: Discharge [...] Time Provider Department Center 12/13/2019 9:00 AM KAZ STEVENS 12/27/2019 1:30 PM MD [facility] Contact Information for Follow-ups Follow-up with provideras scheduled Next Steps: Follow up Instructions: as scheduled Questions: Instructions for follow-up (appointment date and time): as scheduled Reynaldo Flannery DO Specialty: Cardiology, Cardiovascular Disease, Internal Medicine, Clinical Cardiac Electrophysiology [address] [address] Next Steps: Follow up Instructions: Call for follow up appointment in 4-6 weeks Questions: Instructions for follow-up (appointment date and time): Call for follow up appointment in 4-6 weeks Cosigned by Reynaldo Flannery DO at 01/07/2019 1:46 PM CDT documented in this encounter Discharge Instructions * Attachments The following attachments cannot be sent through Care Everywhere. * After Heart Catheterization (Fly Setter) (Bengali) documented in this encounter Medications at Time [...] risk for: Procedure(s): ATRIOVENTRICULAR (AV) NODE ABLATION 05755 Source Note - Reynaldo Flannery DO - [...] Summary: pt vs & labs stable, tele MANAGER ATHLETICS 80's, R groin - clean/dry/intact/soft, D/C education [...] Summary: pt VS & labs stable, tele MANAGER ATHLETICS 80's, R groin- clean/dry/intact/soft, no acute changes, no S&S of distress, all needs met at this time. Will continue to monitor * Post-Procedure Note - Reynaldo Flannery DO - 01/06/2019 10:05 AM CDT ATRIOVENTRICULAR (AV) NODE ABLATION 04330, PERIPROC PPM EVAL/REPROG 17812 Op Note Attending Research Chief Engineer: Reynaldo Flannery DO Primary: Reynaldo Flannery DO Research Chief Engineer Assistants: none CV Documenter: Melody Prado RN CV Scrub: Melvi Dutton RN CV C2 Tactical Analysis Technician: Jennifer Santos RT Date of Procedure: 01/06/2019 Specimens: No specimen collected in procedure Preoperative Diagnosis: afib with tachy Postoperative Diagnosis: same Name of Procedure: Procedure(s): ATRIOVENTRICULAR (AV) NODE ABLATION 23888 PERIPROC PPM EVAL/REPROG 67010 Findings: Successful AVN RFA with CHB, no [...] 01/06/2019 10:21 AM CDT PERIPROC PPM EVAL/REPROG 41711 Routine 01/06/2019 9:28 AM CDT ATRIOVENTRICULAR (AV) NODE ABLATION Routine 01/06/2019 9:28 AM CDT documented in this encounter Results * ECG 12 lead (01/07/2019 7:46 AM CDT) 01/07/2019 7:46 AM CDT Narrative [facility] - 01/07/2019 10:16 AM CDT Vent Rate: 88 bpm RR Interval: 675 msec [place] Interval: 186 msec QRS Duration: 160 msec QT Interval: 435 msec QTC Interval: 481 msec P-R-T [place]: 53 - -75 - 94 degrees ELECTRONIC ATRIAL PACEMAKER ELECTRONIC VENTRICULAR PACEMAKER ABNORMAL RHYTHM ECG Electronically Signed By: Guanakito Dorado MD, [facility] Reynaldo Flannery DO ECG ORDERABLES Final Re sult Performing Organization Address [facility] Co de Phone Number [facility] * Check Sample (01/06/2019 11:33 AM CDT) ABO Rh A Positive [facility] HCLL OTHER 01/06/2019 11:3 3 AM CDT 01/06/2019 11:39 AM CDT Reynaldo Flannery DO LAB BLOOD ORDERABLES Fin al Result Performing Organization Address City/[facility]/ZIP Co de Phone Number [facility] [address] [place] [address] * Type and screen (01/06/2019 11:26 AM CDT) Cuauhtemoc, indirect Negative [facility] ABO Rh A Positive [facility] Blood specimen (specimen) 01/06/2019 11:26 AM CDT 01/06/2019 11:32 AM CDT Narrative [facility] - 01/06/2019 12:15 PM CDT Has the patient had Daratumumab (Darzalex) in the past 6 months?->Unknown us Reynaldo Flannery DO LAB BLOOD BANK TEST ORDE RABLES Final Result Performing Organization Address [facility] Co de Phone Number [facility] [address] [place] [address] * ECG 12 lead (01/06/2019 10:21 AM CDT) 01/06/2019 10:2 1 AM CDT Narrative [facility] - 01/06/2019 6:44 PM CDT Vent Rate: 85 bpm RR Interval: 705 msec [place] Interval: 190 msec QRS Duration: 157 msec QT Interval: 454 msec QTC Interval: 496 msec P-R-T [place]: 193 - -78 - 93 degrees ELECTRONIC ATRIAL PACEMAKER ELECTRONIC VENTRICULAR PACEMAKER ABNORMAL RHYTHM ECG Compared with 09/29/2018 pacing is new Electronically Signed By: Yun Rhoades MD us Reynaldo Flannery DO ECG ORDERABLES Final Re sult Performing Organization Address [facility] de Phone Number [employer] [facility] * ATRIOVENTRICULAR (AV) NODE ABLATION, PERIPROC PPM EVAL/REPROG 03852 (01/06/2019 9:28 AM CDT) Anatomical Region Laterality Modality X-Ray Angiograph y Narrative 01/06/2019 10:08 AM CDT ATRIOVENTRICULAR (AV) NODE ABLATION 47344, PERIPROC PPM EVAL/REPROG 23879 ?Op Note ?? Attending Research Chief Engineer: Reynaldo Flannery DO Primary: Reynaldo Flannery DO ?? Research Chief Engineer Assistants: none ?? CV Documenter: Melody Prado RN CV Scrub: Melvi Dutton RN CV C2 Tactical Analysis Technician: Jennifer Santos, RT ?? Date of Procedure: 01/06/2019 ?? Specimens: No specimen collected in procedure ?? Preoperative Diagnosis: afib with tachy ?? Postoperative Diagnosis: same ?? Name of Procedure: Procedure(s): ATRIOVENTRICULAR (AV) NODE ABLATION 83904 PERIPROC PPM EVAL/REPROG 02318 ?? Findings: Successful AVN RFA with CHB, no escape at 30 bpm DDD PPM interrogated and reprogrammed with normal function ?? Estimated Blood Loss: No blood loss documented. ?? Intra-Procedural Fluids: See anesthesia notes ?? Blood/Blood Products Transfused: none mls ?? Implants: Nothing was implanted during the procedure ?? Complications: None ?? Condition on Discharge from the operating room was stable ?? Reynaldo Flannery DO ?? Date: 01/06/2019 Time: 10:05 AM [...] Given 01/06/2019 4:20 PM CDT 20 mg sodium chloride 0.9% flush 0.5-20 mL 0.5-20 [...] fibrillation 1249 (Given - Provider: Kia Bustos RN)2109 (Given - Provider: Maria Elena Bacon) 0835 (Given - Provider: Kia Bustos, RN) famotidine (PEPCID) tablet 20 mg (COMPLETED) 20 mg, oral, Once, On Fri01/06/19 at 1615, For 1 dose 1620 (Given - Provider: Kia Bustos, RN) sodium chloride 0.9% flush 0.5-20 mL 0.5-20 mL, intra-catheter, Every 8 hours scheduled, First dose on Fri01/06/19 at 1400, Recovery (CV), Flush volume based on line type and size. , Indications: Flushing 1250 (Given - Provider: Kia Bustos, BRAYAN)2109 (Given - Provider: Maria Elena Bacon) 0621 (Given - Provider: Maria Elena Bacon)1400 (Due) Continuous Medication Order 01/05/2019 01/06/2019 01/07/2019 sodium chloride 0.9% infusion 50 mL/hr, intravenous, Continuous, Starting on Fri01/06/19 at 0730 0722 (New Bag - Provider: Melvi Dutton RN)0928 (Anesthesia Volume Adjustment - Provider: Jeaneth Judge [...] Local Anesthesia 0909 (Given - Provider: Reynaldo Flannery, DO) loratadine (CLARITIN) tablet 10 mg 10 mg, oral, Daily PRN, allergies, Starting on Fri01/06/19 at 1108 documented in this encounter Orders Medications Ordered That Flaco ht Not Have Been Administered Count Last Ordered Date First Ordered Date ALPRAZolam (XANAX) tablet 0.25 mg 1 019 lidocaine (XYLOCAINE) 10 mg/ mL (1 %) injection 1 01/06/2019 loratadine (CLARITIN) tablet 10 mg 1 2018 Diet Count Last Ordered Date First Orde red Date ADULT DISCHARGE DIET 1 01/07/2019 Nursing Count Last Ordered Date First Orde red Date DISCHARGE ACTIVITY 5 01/07/2019 DISCHARGE CALL PROVIDER 4 01/07/2019 DISCHARGE DRESSING 1 01/07/2019 FOLLOW UP WITH PROVIDER 2 01/07/2019 ESPINZOA CATHETER - DISCONTINUE 1 01/06/2019 Transfer Count Last Ordered Date First Orde red Date TRANSFER PATIENT 2 01/06/2019 CORE MEASURES Count Last Ordered Date First Ord ered Date REASON FOR NO VTE PROPHYLAXIS AT ADMISSION 1 01/06/2019 documented in this encounter Care Teams Saw Runner Relationship Specialty Start Date End Date Ronald Castrejon MD PCP - General 06/21/16 07/17/22 Reynaldo Flannery DO Consulting Physician Cardiology 09/26/17 Guanakito Holland MD Consulting Physician Cardiovascular Disease 07/29/18 Annel Curiel RN [address] [place] [address] [address] [place] [address] Electro Mechanical Assembler 11/18/18 05/16/19 documented as of this encounter
--- OUTSIDE RECORDS SUMMARY | 2024-04-11 06:38 | XMS_ITS | Encounter Summary ---
Author Organization [facility] Healthcare Address [address] [place] [address] Care Team Providers Care Railroad Operator Name Role Phone Ronald Castrejon MD Primary Care Provider Reynaldo Flannery DO Unavailable Guanakito Holland MD Unavailable Annel Curiel RN Unavailable [phone] Encounter Details Date Type Department Care Team (Late st Contact Info) Description 12/30/2018 10:20 AM CDT Lab [facility] [address] [place] [address] Reynaldo Flannery, DO [address] [facility] [address] [place], [place] [id number] Discharge Disposition: Discharge to home or self [...] on file 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 Gender Identity Female 10/09/2022 9:08 AM CDT Sexual Orientation Choose not to disclose 2022 9:08 AM CDT documented as of this encounter Discharge Disposition Disposition Code Departure Means Destination Discharge to home or self care documented in this encounter Plan of Treatment Not on file documented as of this encounter Procedures Procedure Name Priority Date/Time Associated Diagnosis Comments EGFR Routine 12/30/2018 10:16 AM CDT URINALYSIS AND REFLEX TO MICROSCOPIC AND CULTURE Routine 12/30/2018 10:16 AM CDT PROTIME-INR Routine 12/30/2018 10:16 AM CDT CBC WITHOUT DIFFERENTIAL Routine 12/30/2018 10:16 AM CDT BASIC METABOLIC PANEL Routine 12/30/2018 10:16 AM CDT documented in this encounter Results * eGFR (12/30/2018 10:16 AM CDT) eGFR 85 mL/min/1.7 3 m2 [facility]RE[facility] DA[facility] Comment: Interpretive Data Reference Interval Normal ?>/= 90 mL/min/1.73m2 Mildly decreased* ? 60 - 89 mL/min/1.73m2 Mildly to moderately decreased ?45 - 59 mL/min/1.73m2 Moderately to severely decreased ??30 - 44 mL/min/1.73m2 Severely decreased ?15 - 29 mL/min/1.73m2 Kidney Failure ?< 15 ??mL/min/1.73m2 *Relative to young adult level If -Chilean multiply value by 1.16. Estimated glomerular filtration [...] was last reviewed 2015. Blood specimen (specimen) 12/30/2018 10:16 AM CDT 12/30/2018 10:31 AM CDT Reynaldo Flannery DO LAB BLOOD ORDERABLES Fin al Result Performing Organization Address [facility] [place] [address] [place] [address] * (ABNORMAL) Urinalysis reflex to microscopic and culture Urine (12/30/2018 10:16 AM CDT) Color, ur Yellow Yellow [facility] Clarity, ur Cloudy(A) Clear [facility] Specific gravity, ur 1.015 1.010 - 1.025 [facility] pH, urine 7.0 [facility] Protein, ur ql Negative Negative [facility] Glucose, ur ql Negative Negative [facility] Ketones, ur Negative Negative [facility] Bilirubin, ur Negative Negative [facility] Blood, ur Negative Negative [facility] Urobilinogen, ur <2.0 <2.0 mg/dL [facility] Nitrite, ur Negative Negative [facility] Leukocyte esterase, ur Negative Negative [facility] Urine 12/30/2018 10:1 6 AM CDT 12/30/2018 10:16 AM CDT Narrative [facility] - 12/30/2018 10:42 AM CDT ?? Urine pH is affected by diet, medications, systemic acid-base disturbances, and renal tubular function. ??pH may affect urinary stone formation. ??For example, urine pH below 6.0 may help reduce the tendency for calcium phosphate stones and pH greater than 6.0 may reduce the tendency for uric acid stone formation. Source: [employer]. Last revised 04-03-2017 Reynaldo Flannery DO LAB MICROBIOLOGY - GENER AL ORDERABLES Final Result Performing Organization Address City/[facility] Co de Phone Number [facility] [address] [place] [address] * Protime-INR (12/30/2018 10:16 AM CDT) PT 12.7 9.5 - 13.0 sec [facility] INR 1.09 0.90 - 1.20 [facility] Blood specimen (specimen) 12/30/2018 10:16 AM CDT 12/30/2018 10:16 AM CDT Reynaldo Flannery DO LAB BLOOD ORDERABLES Fin al Result [facility] [address] [place] [address] * Basic metabolic panel (12/30/2018 10:16 AM CDT) Sodium 142 135 - 145 mmol/L [facility] Potassium, pl 4.8 3.3 - 4.9 mmol/L [facility] Chloride 104 97 - 110 mmol/L [facility] CO2 29 22 - 32 mmol/L [facility] Anion gap 9 2 - 15 mmol/L [facility] BUN 14 8 - 25 mg/dL [facility] Creatinine 0.65 0.60 - 1.10 mg/dL [facility] Glucose 128 70 - 199 mg/dL [facility] Comment: Interpretive Data Fasting glucose >/= [...] interpretive data was last revised 2017. Calcium 9.9 8.5 - 10.3 mg/dL [facility] Blood specimen (specimen) 12/30/2018 10:16 AM CDT 12/30/2018 10:16 AM CDT Reynaldo Flannery DO LAB BLOOD ORDERABLES Fin al Result Performing Organization Address [facility] de Phone Number [facility]REW DAWN [address] [place], [place] [id number] * CBC without differential (12/30/2018 10:16 AM CDT) WBC 8.2 3.8 - 9.9 K/cumm [facility] Hgb 13.9 11.9 - 15.5 g/dL [facility] Hct 42.0 35.6 - 45.5 % [facility] Plt 235 150 - 400 K/cumm [facility] MPV 10.4 9.1 - 12.3 fL [facility] RBC 4.44 3.90 - 5.20 M/cumm [facility] MCV 94.6 81.3 - 96.4 fL [facility] MCH 31.3 27.1 - 33.3 pg [facility] MCHC 33.1 32.3 - 35.7 g/dL [facility] RDW CV 12.6 11.1 - 14.9 % [facility] RDW SD 43.6 35.7 - 48.1 fL [facility] NRBC abs 0.00 0.00 - 0.01 K/cumm [facility] Blood specimen (specimen) 12/30/2018 10:16 AM CDT 12/30/2018 10:16 AM CDT Reynaldo Flannery DO LAB BLOOD ORDERABLES Fin al Result Performing Organization Address [facility] de Phone Number [facility] DA[facility] [address] [place] [address] documented in this encounter Visit Diagnoses Not on filedocumented in this encounter Care Teams Railroad Operator Relationship Specialty Start Date End Date Ronald Castrejon MD PCP - General 06/21/16 07/17/22 Reynaldo Flannery DO Consulting Physician Cardiology 09/26/17 Guanakito Holland MD Consulting Physician Cardiovascular Disease 07/29/18 Annel Curiel, RN [address] [place] [id number] Machine Feeder 11/18/18 05/16/19 documented as of this encounter
--- OUTSIDE RECORDS SUMMARY | 2024-04-11 06:38 | XMS_ITS | Encounter Summary ---
Author Organization [facility] Medical Group Address [address] [place] [address] Care Team Providers Care Green Chain Puller Name Role Phone Ronald Castrejon MD Primary Care Provider [phone] Reynaldo Flannery DO Unavailable [phone] Guanakito Holland MD Unavailable [phone] Encounter Details Date Type Department Care Team (Late st Contact Info) Description 10/21/2019 Orders Only [facility] [address] [facility] [address] [place] [address] Provider, MD Rosalinda [address] [place] [address] Social History Tobacco Use Types Packs/Day [...] and Family Once a week 03/05/2019 Attends [employer] Not on file 03/05 Active Member [...] on file 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 Gender Identity Female 10/09/2022 9:08 AM CDT Sexual Orientation Choose not to disclose 2022 9:08 AM CDT documented as of this encounter Plan of Treatment Not on file documented as of this encounter Procedures Procedure Name Priority Date/Time Associated Diagnosis Comments DIFFERENTIAL AUTO Routine 01/06/2020 2:5 5 PM CDT PRO B-TYPE NATRIURETIC PEPTIDE Routine 01/06/2020 2:55 PM CDT CBC WITH AUTO DIFFERENTIAL Routine 01/06/2020 2:55 PM CDT COMPREHENSIVE METABOLIC PANEL Routine 01/06/2020 2:55 PM CDT ERCP Routine 10/19/2019 documented in this encounter Results * Differential, auto (01/06/2020 2:55 PM CDT) Neutrophil abs 4.2 1.7 - 6.5 K/cumm [facility] Imm gran abs 0.0 0.0 - 0.1 K/cumm [facility] Lymphocyte abs 3.2 0.8 - 3.3 K/cumm [facility] Monocyte abs 0.6 0.2 - 0.8 K/cumm [facility] Eosinophil abs 0.1 0.0 - 0.5 K/cumm [facility] Basophil abs 0.1 0.0 - 0.1 K/cumm [facility] Neutrophil pct 51.7 % [facility] Comment: Interpretive Data Percent cell count reference ranges are not reported, since discordance with absolute values may lead to misinterpretation of CBC data. Current Interpretive Data was last revised on 2017. Imm gran pct 0.4 % [facility] Comment: Interpretive Data Percent cell count reference ranges are not reported, since discordance with absolute values may lead to misinterpretation of CBC data. Current Interpretive Data was last revised on 2017. Lymphocyte pct 38.6 % [facility] Comment: Interpretive Data Percent cell count reference ranges are not reported, since discordance with absolute values may lead to misinterpretation of CBC data. Current Interpretive Data was last revised on 2017. Monocyte pct 7.4 % [facility] Comment: Interpretive Data Percent cell count reference ranges are not reported, since discordance with absolute values may lead to misinterpretation of CBC data. Current Interpretive Data was last revised on 2017. Eosinophil pct 1.2 % [facility] Comment: Interpretive Data Percent cell count reference ranges are not reported, since discordance with absolute values may lead to misinterpretation of CBC data. Current Interpretive Data was last revised on 2017. Basophil pct 0.7 % [facility] Comment: Interpretive Data Percent cell count reference ranges are not reported, since discordance with absolute values may lead to misinterpretation of CBC data. Current Interpretive Data was last revised on 2017. Blood specimen (specimen) 01/06/2020 2:55 PM CDT 01/06/2020 2:59 PM CDT us Reynaldo Flannery DO LAB BLOOD ORDERABLES Fin al Result [facility] [address] [place] [address] * Comprehensive metabolic panel (01/06/2020 2:55 PM CDT) Sodium 141 135 - 145 mmol/L [facility] Potassium, pl 4.0 3.3 - 4.9 mmol/L [facility] Chloride 104 97 - 110 mmol/L [facility] CO2 26 22 - 32 mmol/L [facility] Anion gap 11 2 - 15 mmol/L [facility] BUN 12 8 - 25 mg/dL [facility] Creatinine 0.68 0.60 - 1.10 mg/dL [facility] Glucose 107 70 - 199 mg/dL [facility] Comment: [...] interpretive data was last revised 2017. Calcium 9.7 8.5 - 10.3 mg/dL [facility] Bilirubin, total 0.5 0.1 - 1.2 mg/dL [facility] Protein, pl 7.6 6.5 - 8.5 g/dL [facility] Albumin 4.7 3.5 - 5.0 g/dL [facility] Alk phos 50 40 - 130 Units/L [facility] ALT 17 7 - 45 Units/L [facility] AST 28 10 - 45 Units/L [facility] Blood specimen (specimen) 01/06/2020 2:55 PM CDT 01/06/2020 2:59 PM CDT us Reynaldo Flannery DO LAB BLOOD ORDERABLES Fin al [facility] [address] [place] [address] * (ABNORMAL) CBC with auto differential (01/06/2020 2:55 PM CDT) WBC 8.2 3.8 - 9.9 K/cumm [facility] Hgb 14.9 11.9 - 15.5 g/dL [facility] Hct 46.0(H) 35.6 - 45.5 % [facility] Plt 220 150 - 400 K/cumm [facility] MPV 11.0 9.1 - 12.3 fL [facility] RBC 4.74 3.90 - 5.20 M/cumm [facility] MCV 97.0(H) 81.3 - 96.4 fL [facility] MCH 31.4 27.1 - 33.3 pg [facility] MCHC 32.4 32.3 - 35.7 g/dL [facility] RDW CV 12.4 11.1 - 14.9 % [facility] RDW SD 45.1 35.7 - 48.1 fL [facility] NRBC abs 0.00 0.00 - 0.01 K/cumm [facility] Blood specimen (specimen) 01/06/2020 2:55 PM CDT 01/06/2020 2:59 PM CDT us Reynaldo Flannery DO LAB BLOOD ORDERABLES Fin al Result [facility] [address] Department [place] [address] * (ABNORMAL) Pro B-type natriuretic peptide (01/06/2020 2:55 PM CDT) NT-proBNP 2,143(H) <=450 pg/mL [facility] Comment: Interpretive Comments: A. Dyspnea in Acute Care Setting All Ages: ?< 300 pg/ml, acute heart failure unlikely. < 50 yrs: ?300 - 450 pg/ml, further investigation warranted. ? > 450 pg/ml, acute heart failure likely. 50 - 74 yrs: ? 300 - 900 pg/ml, further investigation warranted. ? > 900 pg/ml, acute heart failure likely . > or = 75 yrs: ? 450 - 1800 pg/ml, further investigation warranted. ? > 1800 pg/ml, acute heart failure likely. B. Non-acute Setting < 75 yrs ? < 125 pg/ml, rules out heart failure. ? > or = 125 pg/ml, further investigation warranted. > or = 75 yrs ?< 450 pg/ml, rules out heart failure. ? > or = 450 pg/ml, further investigation warranted. - Knowledge of each individual patient's NT-proBNP range may be more useful than using similar cut-points for every patient. Please note that marked elevations in NT-proBNP levels may be observed in state other than Left Ventricular Congestive Failure, including: acute coronary syndromes, right heart strain/failure (including pulmonary embolism and cor pulmonale), critical illness, renal failure, as well as advanced age. - References: 1. Kunal JOSEPH et.al. Eur Heart J. 2006:27:330-337. 2. David ODOM, Manpreet LAO. J. AM Boaz Cardiol: Cardiovasc Imag. 2009;2: 216- 225. Interpretive Data Last Revised Date: 2017. Blood specimen (specimen) 01/06/2020 2:55 PM CDT 01/06/2020 2:59 PM CDT us Reynaldo Flannery DO LAB BLOOD ORDERABLES Fin al Result Performing Organization Address City/State/[facility] Co nm Phone Number [place] [address] [facility] Department [place] [address] * ERCP -[facility] (10/19/2019) Anatomical Region Laterality Modality Other us Historical Provider GI PROCEDURE ORDERABLES F inal Result documented in this encounter Visit Diagnoses Not on filedocumented in this encounter Care Teams Green Chain Puller Relationship Specialty Start Date End Date Ronald Castrejon MD PCP - General 06/21/16 07/17/22 Reynaldo Flannery DO Consulting Physician Cardiology 09/26/17 Guanakito Holland MD Consulting Physician Cardiovascular Disease 07/29/18 documented as of this encounter
--- OUTSIDE RECORDS SUMMARY | 2024-04-11 06:38 | XMS_ITS | Encounter Summary ---
Author Organization 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 Gender Identity Female 10/09/2022 9:08 AM CDT Sexual Orientation Choose not to disclose 2022 9:08 AM CDT documented as of this encounter Plan of Treatment Not on file documented as of this encounter Visit Diagnoses Not on filedocumented in this encounter Care Teams Improvement Director Relationship Specialty Start Date End Date Ronald Castrejon MD PCP - General 06/21/16 07/17/22 Reynaldo Flannery DO Consulting Physician Cardiology 09/26/17 Guanakito Holland MD Consulting Physician Cardiovascular Disease 07/29/18 Annel Curiel RN [address] [place] [address] Clinical Staff Rn 11/18/18 05/16/19 documented as of this encounter
--- OUTSIDE RECORDS SUMMARY | 2024-04-11 06:38 | XMS_ITS | Encounter Summary ---
Author Organization [facility] Address [address] [place] [address] Care Team Providers Care Neurology Manager Name Role Phone Ronald Castrejon MD Primary Care Provider [phone] Reynaldo Flannery DO Unavailable [phone] Guanakito Holland MD Unavailable [phone] Encounter Details Date Type Department Care Team (Late st Contact Info) Description 02/15/2020 Orders Only [facility] Information Management [address] [place] [address] Scanning, Provider Social History Tobacco [...] on file 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 Gender Identity Female 10/09/2022 9:08 AM CDT Sexual Orientation Choose not to disclose 2022 9:08 AM CDT documented as of this encounter Plan of Treatment Not on file documented as of this encounter Procedures Procedure Name Priority Date/Time Associated Diagnosis Comments SCAN - LABS 02/15/2020 documented in this encounter Results * SCAN - LABS (02/15/2020) us Provider Scanning Final Result documented in this encounter Visit Diagnoses Not on filedocumented in this encounter Care Teams Neurology Manager Relationship Specialty Start Date End Date Ronald Castrejon MD PCP - General 06/21/16 07/17/22 Reynaldo Flannery DO Consulting Physician Cardiology 09/26/17 Guanakito Holland MD Consulting Physician Cardiovascular Disease 07/29/18 documented as of this encounter
--- OUTSIDE RECORDS SUMMARY | 2024-04-11 06:38 | XMS_ITS | Encounter Summary ---
Author Organization [facility] Medical [facility] Address [address] [place] [address] Care Team Providers Care Health Manager Name Role Phone Ronald Castrejon MD Primary Care Provider [phone] Reynaldo Flannery DO Unavailable [phone] Guanakito Holland MD Unavailable [phone] Encounter Details Date Type Department Care Team (Late st Contact Info) Description 03/10/2020 Orders Only [facility] [address] 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 Gender Identity Female 10/09/2022 9:08 AM CDT Sexual Orientation Choose not to disclose 2022 9:08 AM CDT documented as of this encounter Plan of Treatment Not on file documented as of this encounter Procedures Procedure Name Priority Date/Time Associated Diagnosis Comments SCAN - LABS Routine 02/15/2020 documented in this encounter Results * SCAN - LABS (02/15/2020) Historical Provider Final Res ult documented in this encounter Visit Diagnoses Not on filedocumented in this encounter Care Teams Health Manager Relationship Specialty Start Date End Date Ronald Castrejon MD PCP - General 06/21/16 07/17/22 Reynaldo Flannery DO Consulting Physician Cardiology 09/26/17 Guanakito Holland MD Consulting Physician Cardiovascular Disease 07/29/18 documented as of this encounter
--- OUTSIDE RECORDS SUMMARY | 2024-04-11 06:39 | XMS_ITS | Encounter Summary ---
Author Organization [facility] Facility Care Team Providers Care Ecmo Specialist Name Role Phone Ronald Castrejon MD Primary Care Provider [phone] Reynaldo Flannery DO Unavailable [phone] Encounter Details Date Type Department Care Team (Latest Contact Info) Description 07/28/2018 Travel Social History Tobacco Use Types Packs/Day Years Used Date Smoking Tobacco: Former Smokeless Tobacco: Never Alcohol Use Standard Drinks/Week Comments No 0 (1 standard drink = 0.6 oz pur e alcohol) Comments Unknown Sex and Gender Information Value Date Recorded Sex Assigned at Not on file 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
--- OUTSIDE RECORDS SUMMARY | 2024-04-11 06:39 | XMS_ITS | Encounter Summary ---
Author Organization [facility] Healthcare Address [address] [place] [address] Care Team Providers Care Survey Operations Director Name Role Phone Ronald Castrejon MD Primary Care Provider [phone] Reynaldo Flannery DO Unavailable [phone] Encounter Details Date Type Department Care Team (Late st Contact Info) Description 11/18/2017 12:24 PM CDT Anesthesia Event [facility] [address] [place] [id number] John Campos MD [facility] [facility] [place] [address] Anesthesia Record Procedure Summary Procedure Name Responsible Anesthesiologist Anesthesia Start Time Anesthesia Stop Time Esophagogastroduodenoscopy John Campos MD 10/23 11/08 1224 11/18/17 1304 Events Date Time Event Comment 11/18/2017 1048 1221 In Room 1224 An Start 1224 An Start Data 1229 Bite Block Placed 1229 An Induction The patient was reevaluated immediately before moderate or deep sedation use and before anesthesia induction. 1229 Anesthesia Ready 1235 Proc Start 1253 Proc Fin 1257 Out of Room 1304 Handoff to RN I completed my handoff [...] disposition at the time of handoff: PACU 1304 An Stop 1348 Release from care Meds Name Total lidocaine (cardiac) syringe 2 % 4 mL propofol 300 mg fentaNYL 50 mcg ondansetron 4 mg Lactated Ringer's (LR) infusion 600 mL * Agents Name O2 * Blood No blood administrations on file. Lines, Drains, and Airways Type Details Placement Removal Peripheral IV Placement Date: 08/08; Placement Time: 0420; Catheter Size: 20 G; Orientation: Right; Location: Hand; Site Prep: Chlorhexidine; Technique: Anatomical landmarks; Inserted by: BRAYAN Mccarthy; Insertion Attempts: 1; Patient Tolerance: Tolerated well; Removal Date: 11/18/17; Removal Time: 1420 09/25/17 0420 by Perry Farias RN 11/18/17 1420 by Briseyda Brooke Peripheral IV Placement Date: 10/23 11/08; Placement Time: 1037; Catheter Size: 22 G; Orientation: Right; Location: Hand; Site Prep: Alcohol; Inserted by: PRECIOUS; Insertion Attempts: 2; Patient Tolerance: Tolerated well; Removal Date: 11/18/17; Removal Time: 1420 11/18/17 1037 by Katelyn Palmer RN 11/18/17 1420 by Briseyda Brooke documented in this encounter Social History Tobacco Use Types Packs/Day Years Used Date Smoking Tobacco: Former Smokeless Tobacco: Never Alcohol Use Standard Drinks/Week Comments No 0 (1 standard drink = 0.6 oz pur e alcohol) Comments Unknown Sex and Gender Information Value Date Recorded Sex Assigned at Not on file 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 Gender Identity Female 10/09/2022 9:08 AM CDT Sexual Orientation Choose not to disclose 2022 9:08 AM CDT documented as of this encounter OR Notes * Anesthesia Postprocedure Evaluation - John Campos MD - 11/18/2017 1:47 PM CDT Patient: Abena Giron Procedure Summary Date: 11/18/17 Room / Location: [facility] Anesthesia Start: 1224 Anesthesia Stop: 1304 Procedure: Esophagogastroduodenoscopy (N/A ) Diagnosis: (K30 R10.11) Provider: Buddy Weir MD Responsible Provider: John Campos MD Anesthesia Type: general/TIVA ASA Status: 3 Anesthesia Type: general/TIVA Last vitals BP 157/73 Pulse 61 Temp 36.2 ??C (97.1 ??F) (Temporal) Resp 13 SpO2 99% Anesthesia Post Evaluation Patient location during evaluation: PACU Level of consciousness: follows simple commands and fully awake Pain management: adequate Airway patency: adequate Anesthetic complications: no Cardiovascular status: acceptable and hemodynamically stable Respiratory status: acceptable Hydration status: acceptable Pt is: normothermic Nausea/Vomiting status: none * Anesthesia Preprocedure Evaluation - John Campos MD - 11/18/2017 10:44 AM CDT Anesthesia Evaluation Abena Giron is a 77 y.o. female Procedure(s): ERCP HISTORY Past Medical History Neurological + Psychiatric history - anxiety Cardiovascular + Hypertension + Hyperlipidemia + CAD + HI + Unknown stent(s) type + Atrial fibrillation/flutter (S/P ablation) - Current Rhythm: non-fibrillation/flutter. + PAD/Aorta disease - current TAA. Gastrointestinal + GERD - on daily therapy. Asymptomatic. Musculoskeletal/Pain + Osteoarthritis Endocrine / Other + Obesity (BMI >30) Patient Active Problem List Diagnosis ??? Hypertension ??? Osteoarthritis ??? Hyperlipidemia ??? Coronary artery disease involving [place] coronary artery of [place] heart without angina pectoris ??? Paroxysmal atrial fibrillation (CMS/HCC) ??? Chronic GERD ??? Anxiety ??? Abdominal aortic aneurysm (AAA) without rupture (CMS/HCC) ??? Atrial fibrillation with RVR (CMS/HCC) Past Medical History: Diagnosis Date ??? Adiposity obesity ??? Aortic aneurysm (CMS/HCC) Pt states found by ultrasound upper abd. ??? Gastroesophageal reflux disease GERD ??? History of loop recorder ??? HX OTHER MEDICAL Depression, with Anxiety ??? HX OTHER MEDICAL DJD ??? HX OTHER MEDICAL a.fib ??? HX OTHER MEDICAL Atrial Fibrillation; Outcome: heart ablation ??? Hyperlipidemia Hyperlipidemia ??? Hypertension Hypertension Past Surgical History: Procedure Laterality Date ??? CHOLECYSTECTOMY 1981 Cholecystectomy ??? OTHER SURGICAL HISTORY Right 1980 partial oopherectomy ??? OTHER SURGICAL HISTORY heart cath with stent 2013 [place]/[facility] ??? OTHER SURGICAL HISTORY 2015 a.fib: loop recorder implanted ??? OTHER SURGICAL HISTORY 2016 Atrial Fibrillation: Cardiovascular Intervention OB History No data available Allergies Allergen Reactions ??? Codeine Rash, Vomiting, Hallucinations and Nausea [...] up, rash, , , Reaction: Rash, ??? Phenobarbital ??? Sotalol ??? Diltiazem Itching HOME MEDICATIONS : ALPRAZolam (XANAX) 0.5 mg tablet apixaban (ELIQUIS) 5 mg tablet calcium acetate (PHOSLO) 667 mg capsule cholecalciferol (VITAMIN D-3) 2,000 unit tablet cyanocobalamin (Vitamin B-12) 100 mcg tablet digestive enzymes tablet docusate sodium (COLACE) 100 mg capsule fluticasone (FLONASE) 50 mcg/actuation nasal spray lansoprazole (PREVACID) 15 mg capsule magnesium gluconate 200 mg tablet Current Facility-Administered Medications: ??? sodium chloride 0.9% flush 0.5-20 mL, 0.5-20 mL, intra-catheter, Q8H NAVEED ??? sodium chloride 0.9% flush 0.5-20 mL, 0.5-20 mL, intra-catheter, PRN ??? sodium chloride 0.9% infusion, 30 mL/hr, intravenous, Continuous Social History Smoking Status ??? Former Smoker Smokeless Tobacco ??? Never Used Alcohol Use No Drug Use No Family History Problem Relation [...] Hypertension Brother Hypertension; PAT Physical Exam Vitals: 11/18/17 1034 BP: (!) 197/73 Pulse: 62 Resp: 14 Temp: 36.2 ??C (97.1 ??F) SpO2: 100% PT: No results found for requested labs [...] and allergies reviewed. Attestation: This PAT evaluation 11/18/2017. Airway Exam: Mallampati: II Cervical ROM: FROM TM distance: >4 Jaw ROM: full Cardiovascular Exam: Rate: regular Rhythm: regular Pulmonary Exam: LCTA, bilat Anesthesia Plan ASA 3 My patient is approved for the Anesthesia Controlled Medication protocol when under care of a CAREER ADVISOR Planned anesthesia: General/TIVA Induction: Induction: intravenous. Postoperative Plan: No postoperative mechanical ventilation intended. Patient's planned disposition post procedure is Outpatient. Informed Consent: Discussed plan with CAREER ADVISOR. Anesthesia plan and risks discussed with patient. [...] MAR Action Action Date Dose Rate Site fentaNYL (SUBLIMAZE) preservative free injection intravenous, As needed, Starting on Fri11/18/17 at 1237, Anesthesia Intra-op Given 11/18/2017 12:37 PM CDT 50 mcg Lactated Ringer's (LR) infusion 50 mL/hr, intravenous, Continuous, Starting on Fri11/18/17 at 1130, Phase I New Bag 11/18/2017 12:24 PM CDT New Bag 11/18/2017 10:49 AM CDT 50 mL/hr 50 mL/hr lidocaine (cardiac) (XYLOCAINE) preservative free injection intravenous, As needed, Starting on Fri11/18/17 at 1230, Anesthesia Intra-op, Indications: Ventricular ArrhythmiasIndications:Ventricular Arrhythmias Given 11/18/2017 12:30 PM CDT 4 mL ondansetron (ZOFRAN) injection intravenous, As needed, nausea, vomiting, Starting on Fri11/18/17 at 1238, Anesthesia Intra-op Given 11/18/2017 12:38 PM CDT 4 mg propofol (DIPRIVAN) IV intravenous, As needed, Starting on Fri11/18/17 at 1233, Anesthesia Intra-op Given 11/18/2017 12:33 PM CDT 300 mg documented in this encounter Care Teams Survey Operations Director Relationship Specialty Start Date End Date Ronald Castrejon MD PCP - General 06/21/16 07/17/22 Reynaldo Flannery DO Consulting Physician Cardiology 09/26/17 documented as of this encounter
--- OUTSIDE RECORDS SUMMARY | 2024-04-11 06:39 | XMS_ITS | Encounter Summary ---
Author Organization [facility] Facility Care Team Providers Care Maxillofacial Prosthodontist Name Role Phone Ronald Castrejon MD Primary Care Provider [phone] Reynaldo Flannery DO Unavailable [phone] Guanakito Holland MD Unavailable Jaclyn Eid RN Unavailable [phone] Encounter Details Date Type Department Care Team (Latest Contact Info) Description 09/10/2018 Travel Social History Tobacco Use Types Packs/Day Years Used Date Smoking Tobacco: Former Cigarettes Q uit: 1975 Smokeless Tobacco: Never Alcohol Use Standard Drinks/Week Comments No 0 (1 standard drink = 0.6 oz pur e alcohol) Comments No Sex and Gender Information Value Date Recorded Sex Assigned at Not on file 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 Gender Identity Female 10/09/2022 9:08 AM CDT Sexual Orientation Choose not to disclose 2022 9:08 AM CDT documented as of this encounter Plan of Treatment Not on file documented as of this encounter Visit Diagnoses Not on filedocumented in this encounter Care Teams Maxillofacial Prosthodontist Relationship Specialty Start Date End Date Ronald Castrejon MD PCP - General 06/21/16 07/17/22 Reynaldo Flannery DO Consulting Physician Cardiology 09/26/17 Guanakito Holland MD Consulting Physician Cardiovascular Disease 07/29/18 Jaclyn Eid, RN [address] [place] [id number] Cook Manager 07/31/18 11/29/18 documented as of this encounter
--- OUTSIDE RECORDS SUMMARY | 2024-04-11 06:39 | XMS_ITS | Encounter Summary ---
Author Organization [facility] Address [address] [place] [address] Care Team Providers Care Utilization Review Specialist Name Role Phone Ronald Castrejon MD Primary Care Provider [phone] Reynaldo Flannery DO Unavailable [phone] Guanakito Holland MD Unavailable [phone] Jaclyn Eid RN Unavailable [phone] Encounter Details Date Type Department Care Team (Late st Contact Info) Description 09/10/2018 [place] Only [facility] [address] [place] [address] Scanning, Provider Social History Tobacco Use Types Packs/Day Years Used Date Smoking Tobacco: Former Cigarettes Q uit: 1975 Smokeless Tobacco: Never Alcohol Use Standard Drinks/Week Comments No 0 (1 standard drink = 0.6 oz pur e alcohol) Comments No Sex and Gender Information Value Date Recorded Sex Assigned at Not on file 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 Gender Identity Female 10/09/2022 9:08 AM CDT Sexual Orientation Choose not to disclose 2022 9:08 AM CDT documented as of this encounter Plan of Treatment Not on file documented as of this encounter Procedures Procedure Name Priority Date/Time Associated Diagnosis Comments SCAN - LABS 09/10/2018 documented in this encounter Results * SCAN - LABS (09/10/2018) us Provider Scanning Final Result documented in this encounter Visit Diagnoses Not on filedocumented in this encounter Care Teams Utilization Review Specialist Relationship Specialty Start Date End Date Ronald Castrejon MD PCP - General 06/21/16 07/17/22 Reynaldo Flannery DO Consulting Physician Cardiology 09/26/17 Guanakito Holland MD Consulting Physician Cardiovascular Disease 07/29/18 Jaclyn Eid, RN [address] [place] [id number] Railroad Purchasing Agent 07/31/18 11/29/18 documented as of this encounter
--- OUTSIDE RECORDS SUMMARY | 2024-04-11 06:39 | XMS_ITS | Encounter Summary ---
Author Organization [facility] Healthcare Address [address] [place] [address] Care Team Providers Care Purchasing Assistant Name Role Phone Ronald Castrejon MD Primary Care Provider [phone] Reynaldo Flannery DO Unavailable [phone] Guanakito Holland MD Unavailable [phone] Jaclyn Eid RN Unavailable [phone] Encounter Details Date Type Department Care Team (Latest Contact Info) Description 09/15/2018 5:21 AM CDT - 09/15/2018 11:59 PM CDT Hospital Encounter [facility] [address] [place] [address] Discharge Disposition: Discharge to home or self care Social History Tobacco Use Types Packs/Day Years Used Date Smoking Tobacco: Former Cigarettes Q uit: 1975 Smokeless Tobacco: Never Alcohol Use Standard Drinks/Week Comments No 0 (1 standard drink = 0.6 oz pur e alcohol) Comments No Sex and Gender Information Value Date Recorded Sex Assigned at Not on file 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 90 tablet 4 12/23/2017 9 apixaban (ELIQUIS) 5 mg tablet take [...] Comments XR CHEST PA LATERAL 2 VIEWS Routine 09/15/2018 5:27 AM CDT documented in this encounter Results * XR Chest PA Lateral 2 View (09/15/2018 5:27 AM CDT) Anatomical Region Laterality Modality Body, Chest N/A Computed Radiogr aphy 09/15/2018 8:15 AM CDT Impressions 09/15/2018 8:15 AM CDT No active disease. Electronically signed by: Jaswinder Lira M.D. Narrative 09/15/2018 8:15 AM CDT RESULT: HISTORY: The patient is a 78-year-old female who is at placement of a pacemaker. ??Comparison made with the previous study dated 09/14/2018. TECHNIQUE: PA and lateral view of the chest. FINDINGS: Lungs clear. ??Heart not enlarged. ??Aortic atherosclerosis. ??No failure. ??Left-sided transvenous pacemaker noted with electrode tips in good position. ??No pneumothorax. Procedure Note Jaswinder Lira MD - 09/15/2018 RESULT: HISTORY: The patient is a 78-year-old female who is at placement of a pacemaker. Comparison made with the previous study dated 09/14/2018. TECHNIQUE: PA and lateral view of the chest. FINDINGS: Lungs clear. Heart not enlarged. Aortic atherosclerosis. No failure. Left-sided transvenous pacemaker noted with electrode tips in good position. No pneumothorax. IMPRESSION: No active disease. Electronically signed by: Jaswinder Lira M.D. Reynaldo Flannery DO IMG XR PROCEDURES Final Result documented in this encounter Visit Diagnoses Not on filedocumented in this encounter Care Teams Purchasing Assistant Relationship Specialty Start Date End Date Ronald Castrejon MD PCP - General 06/21/16 07/17/22 eRynaldo Flannery DO Consulting Physician Cardiology 09/26/17 Guanakito Holland MD Consulting Physician Cardiovascular Disease 07/29/18 Jaclyn Eid, RN [address] [place] [address] Battery Tester 07/31/18 11/29/18 documented as of this encounter
--- OUTSIDE RECORDS SUMMARY | 2024-04-11 06:39 | XMS_ITS | Encounter Summary ---
Author Organization [facility] Healthcare Address [address] [place] [address] Care Team Providers Care Material Specialist Name Role Phone Ronald Castrejon MD Primary Care Provider [phone] Reynaldo Flannery DO Unavailable [phone] Guanakito Holland MD Unavailable [phone] Jaclyn Eid RN Unavailable [phone] Encounter Details Date Type Department Care Team (Late st Contact Info) Description 09/30/2018 [facility] Only [facility] Cardiac Catheterization Lab [address] [place] [address] Luciana Mckee, BRAYAN Social History Tobacco Use Types Packs/Day Years Used Date Smoking Tobacco: Former Cigarettes Q uit: 1975 Smokeless Tobacco: Never Alcohol Use Standard Drinks/Week Comments No 0 (1 standard drink = 0.6 oz pur e alcohol) Comments No Sex and Gender Information Value Date Recorded Sex Assigned at Not on file 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 Gender Identity Female 10/09/2022 9:08 AM CDT Sexual Orientation Choose not to disclose 2022 9:08 AM CDT documented as of this encounter Plan of Treatment Not on file documented as of this encounter Visit Diagnoses Not on filedocumented in this encounter Care Teams Material Specialist Relationship Specialty Start Date End Date Ronald Castrejon MD PCP - General 06/21/16 07/17/22 Reynaldo Flannery DO Consulting Physician Cardiology 09/26/17 Guanakito Holland MD Consulting Physician Cardiovascular Disease 07/29/18 Jacyln Eid, RN [address] [place] [id number] Customer Accounts Advisor 07/31/18 11/29/18 documented as of this encounter
--- OUTSIDE RECORDS SUMMARY | 2024-04-11 06:39 | XMS_ITS | Encounter Summary ---
Author Organization [facility] Facility Care Team Providers Care Molded Rubber Goods Cutter Name Role Phone Ronald Castrejon MD Primary Care Provider [phone] Reynaldo Flannery DO Unavailable [phone] Guanakito Holland MD Unavailable [phone] Jaclyn Eid RN Unavailable [phone] Encounter Details Date Type Department Care Team (Latest Contact Info) Description 09/29/2018 Travel Social History Tobacco Use Types Packs/Day Years Used Date Smoking Tobacco: Former Cigarettes Q uit: 1975 Smokeless Tobacco: Never Alcohol Use Standard Drinks/Week Comments No 0 (1 standard drink = 0.6 oz pur e alcohol) Comments No Sex and Gender Information Value Date Recorded Sex Assigned at Not on file 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 Gender Identity Female 10/09/2022 9:08 AM CDT Sexual Orientation Choose not to disclose 2022 9:08 AM CDT documented as of this encounter Plan of Treatment Not on file documented as of this encounter Visit Diagnoses Not on filedocumented in this encounter Care Teams Molded Rubber Goods Cutter Relationship Specialty Start Date End Date Ronald Castrejon MD PCP - General 06/21/16 07/17/22 Reynaldo Flannery DO Consulting Physician Cardiology 09/26/17 Guanakito Holland MD Consulting Physician Cardiovascular Disease 07/29/18 Jaclyn Eid, RN [address] [place] [id number] Fpga Engineer 07/31/18 11/29/18 documented as of this encounter
--- OUTSIDE RECORDS SUMMARY | 2024-04-11 06:39 | XMS_ITS | Encounter Summary ---
Author Organization [facility] Healthcare Address [address] [place] [address] Care Team Providers Care Cell Geneticist Name Role Phone Ronald Castrejon MD Primary Care Provider [phone] Reynaldo Flannery DO Unavailable Guanakito Holland MD Unavailable [phone] Jaclyn Eid RN Unavailable [phone] Encounter Details Date Type Department Care Team (Latest Contact Info) Description 09/30/2018 8:30 AM CDT - 09/30/2018 11:59 PM CDT Hospital Encounter [facility] Imaging [address] [place] [address] Discharge Disposition: Discharge to home or self care Social History Tobacco Use Types Packs/Day Years Used Date Smoking Tobacco: Former Cigarettes Q uit: 1975 Smokeless Tobacco: Never Alcohol Use Standard Drinks/Week Comments No 0 (1 standard drink = 0.6 oz pur e alcohol) Comments No Sex and Gender Information Value Date Recorded Sex Assigned at Not on file Legal Sex Female 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 Electronically signed by: Baljit Fernández M.D. Narrative 09/30/2018 10:11 AM CDT RESULT: HISTORY: Chest pain EXAMINATION: XR CHEST PA LATERAL 2 VIEWS ORDER DATE: 09/30/2018 8:35 AM FINDINGS: There are small scattered parenchymal and perihilar granulomatous calcifications. The cardiac and mediastinal outlines are unremarkable. There are no pleural effusions or infiltrates. No significant abnormalities are noted in the spine or remainder of the bony thorax. ??Cardiac pacemaker on the left. Procedure Note Baljit Fernández MD - 09/30/2018 RESULT: HISTORY: Chest pain EXAMINATION: XR CHEST PA LATERAL 2 VIEWS ORDER DATE: 09/30/2018 8:35 AM FINDINGS: There are small scattered parenchymal and perihilar granulomatous calcifications. The cardiac and mediastinal outlines are unremarkable. There are no pleural effusions or infiltrates. No significant abnormalities are noted in the spine or remainder of the bony thorax. Cardiac pacemaker on the left. IMPRESSION: NO ACUTE PULMONARY CHANGE. Electronically signed by: Baljit Fernández M.D. Kathryn Stauffer DO IM XR PROCEDURES Final Result documented in this encounter Visit Diagnoses Not on filedocumented in this encounter Care Teams Cell Geneticist Relationship Specialty Start Date End Date Ronald Castrejon MD PCP - General 06/21/16 07/17/22 Reynaldo Flannery DO Consulting Physician Cardiology 09/26/17 Guanakito Holland MD Consulting Physician Cardiovascular Disease 07/29/18 Jaclyn Eid, RN [address] [place] [id number] Heat Set Operator 07/31/18 11/29/18 documented as of this encounter
--- OUTSIDE RECORDS SUMMARY | 2024-04-11 06:39 | XMS_ITS | Encounter Summary ---
Author Organization 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 Name Role Phone Ronald Castrejon MD Primary Care Provider Reynaldo Flannery DO Unavailable Guanakito Holland MD Unavailable [phone] Jaclyn Eid RN Unavailable [phone] Encounter Details Date Type Department Care Team (Latest Contact Info) Description 09/14/2018 7:38 AM CDT - 09/15/2018 11:34 AM CDT Hospital Encounter [facility] [address] [place] [address] Reynaldo Flannery, DO [address] [place], [place] [address] Discharge Disposition: Discharge to home or self care Social History Tobacco Use Types Packs/Day Years Used Date Smoking Tobacco: Former Cigarettes Q uit: 1975 Smokeless Tobacco: Never Alcohol Use Standard Drinks/Week Comments No 0 (1 standard drink = 0.6 oz pur e alcohol) Comments No Sex and Gender Information Value Date Recorded Sex Assigned at Not on file 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 Gender Identity Female 10/09/2022 9:08 AM CDT Sexual Orientation Choose not to disclose 2022 9:08 AM CDT documented as of this encounter Last Filed Vital Signs Vital Sign Reading Time Taken Comments Blood Pressure 164/80 09/15/2018 3:54 AM CDT Pulse 72 09/15/2018 7:30 AM CDT Temperature 36.7 ??C (98 ??F) 09/15/2018 3:54 AM CDT Respiratory Rate 18 09/15/2018 3:54 AM CDT Oxygen Saturation 98% 09/15/2018 3:54 AM CDT Inhaled Oxygen Concentration - - Weight 75.3 kg (166 lb) 09/14/2018 8:19 AM CDT Height 154.9 cm (5' 1 ) 09/14/2018 8:19 AM CDT Body Mass Index 31.37 09/14/2018 8:19 AM CDT documented in this encounter Discharge Diagnoses Diagnosis Other mechanical complication of cardiac electrode, initial encounter - OTHER MECHANICAL COMPLICATION OF CARDIAC ELECTRODE, INITIAL ENCOUNTER Panic disorder without agoraphobia - PANIC DISORDER [EPISODIC PAROXYSMAL ANXIETY] Atherosclerotic heart disease of [place] coronary artery without angina pectoris - ATHEROSCLEROTIC HEART DISEASE OF [place] CORONARY ARTERY WITHOUT ANGINA PECTORIS Hyperlipidemia - HYPERLIPIDEMIA, UNSPECIFIED Other and unspecified hyperlipidemia Prediabetes - PREDIABETES Other abnormal glucose Obesity - OBESITY, UNSPECIFIED Obesity, unspecified Essential (primary) hypertension - ESSENTIAL (PRIMARY) HYPERTENSION Unspecified essential hypertension Sick sinus syndrome (CMS/HCC) (HCC) - SICK SINUS SYNDROME Sinoatrial node dysfunction Atrial fibrillation (CMS/HCC) (HCC) - UNSPECIFIED ATRIAL FIBRILLATION Atrial fibrillation Osteoarthritis - UNSPECIFIED OSTEOARTHRITIS, UNSPECIFIED SITE Osteoarthrosis, unspecified whether generalized or localized, unspecified site Palpitations - PALPITATIONS Personal history of other diseases of the circulatory system - PERSONAL HISTORY OF OTHER DISEASES OF THE CIRCULATORY SYSTEM Personal history of nicotine dependence - PERSONAL HISTORY OF NICOTINE DEPENDENCE 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 of anticoagulant - LONGTERM (CURRENT) USE OF ANTICOAGULANTS Family history of ischemic heart disease and other diseases of the circulatory system - FAMILY HISTORY OF ISCHEMIC HEART DISEASE AND OTHER DISEASES OF THE CIRCULATORY SYSTEM Presence of cardiac pacemaker - PRESENCE OF CARDIAC PACEMAKER Cardiac pacemaker in situ Other surgical procedures as the cause of abnormal reaction of the patient, or of later complication, without mention of misadventure at the time of the procedure - OTHER SURGICAL PROCEDURES THE CAUSE OF ABNORMAL REACTION OF THE PATIENT, OR OF LATER COMPLICATION Unspecified place or not applicable - UNSPECIFIED PLACE OR NOT APPLICABLE documented in this encounter Discharge Summaries * Macarena Vaughan NP - 09/15/2018 8:33 AM CDT Inpatient Discharge Summary BRIEF OVERVIEW Admitting Provider: Reynaldo Flannery DO Discharge Provider: Reynaldo Flannery DO Primary Care Physician at Discharge: Ronald Castrejon MD [phone] Admission Date: 09/14/2018 Discharge Date: 09/15/2018 Admission Location: [facility] Primary Discharge Diagnosis: Lead revision Secondary Discharge Diagnosis: Sinus node dysfunction (CMS/HCC) * No resolved hospital problems. * DETAILS OF HOSPITAL STAY Presenting Problem/History of Present Illness: Atrial fibrillation with recent PPM implant for her atrial fibrillation and treatment. Upon interrogation of her PPM it was found to have a lead not capturing and in need of revision. Hospital Course: Patient was admitted for lead revision. She tolerated the procedure well and was returned to the telemetry floor for further evaluation. She had CXR this am which showed the leads to be in same position without movement. She is being discharged home in stable condition. Operative Procedures Performed: Procedure(s): IMPLANT ATRIAL PPM SYTEM WITH ATRIAL ELECTRODE (GEN AND LEAD, NEW OR REPLACE) 15792 Discharge Details Physical Exam at Discharge: Discharge Condition: good Pulse: 72 Resp: 18 BP: 164/80 Temp: 36.7 ??C (98 ??F) Weight: 75.3 kg (166 lb) Pertinent Exam Findings at Discharge: Lungs: clear, Skin: incision line clean and dry with edges well approximated, CV:S1,S2, Abd: soft Discharge Disposition: Discharge to home or self care Code Status at Discharge: full code Discharge Instructions: Follow up appointment on September 21 at 11:00 at the [facility] office. Please no showering for one week, do not put anything on the incision line and do not remove the steri strips for at least one week. Discharge Medications: Current Medications TAKE these medications ALPRAZolam 0.5 mg tablet Commonly known as: XANAX Take 1 tablet (0.5 mg total) by mouth 3 (three) times a day as needed for anxiety. artificial tears 0.3 % gel Commonly known as: SYSTANE Apply 1 drop to both eyes 4 (four) times a day as needed cholecalciferol 2,000 unit tablet Commonly known as: VITAMIN D-3 take 1 tablet by oral route every day cyanocobalamin 100 mcg tablet Commonly known as: Vitamin B-12 Take 100 mcg by mouth daily. digestive enzymes tablet Take by mouth daily ELIQUIS 5 mg tablet Generic drug: apixaban take 1 tablet by oral route 2 times every day fluticasone propionate 50 mcg/actuation nasal spray Commonly known as: FLONASE Administer 2 sprays into each nostril daily loratadine 10 mg tablet Commonly known as: CLARITIN Take 10 mg by mouth daily as needed MAGNESIUM ORAL Take 2 capsules by mouth daily metoprolol XL 25 mg 24 hr tablet Commonly known as: TOPROL-XL Take 25 mg by mouth 2 (two) times a day mupirocin 2 % nasal ointment Commonly known as: BACTROBAN Apply 1 application to each nostril 2 (two) times a day Use one-half of tube in each nostril twice daily for five (5) days. After application, press sides of nose together and gently massage. sulfamethoxazole-trimethoprim 800-160 mg per tablet Commonly known as: BACTRIM DS,SEPTRA DS Take 1 tablet by mouth 2 (two) times a day for 5 days vitamin C 1,000 mg tablet Generic drug: ascorbic acid Take 2,000 mg by mouth daily Outpatient Follow-Up: Future Appointments Date Time Provider Department Center 12/10/2018 8:30 AM [facility], [facility] 12/24/2018 2:30 PM Ronald Castrejon MD [facility] Cosigned by Reynaldo Flannery DO at 09/17/2018 11:23 AM CDT documented in this encounter Medications [...] massage. 9 documented as of this encounter Ordered Prescriptions Prescription Sig Dispense Quantity Refills Last Filled Start Date End Date sulfamethoxazole-t rimethoprim (BACTRIM DS,SEPTRA DS) 800-160 mg per tablet Take 1 tablet by mouth 2 (two) times a day for 5 days 10 tablet 09/15/2018 09/20/2018 documented in this encounter Discharge Disposition Disposition Code Departure Means Destination Discharge to home or self care documented in this encounter Progress Notes * Beth Bustillo RN - 09/15/2018 8:32 AM CDT 09/15/18 0831 Referral Data Referral Source Material Spreader Referral Reason Discharge Planning Patient Information Primary Caregiver Self Support System Children Support system contact info (name, phone, availablity) Daughter is Tabatha Giron @ Legal Information Have you reviewed your Advance Directive and is it valid for this stay? No Advance Directive Patient does not have advance directive;Patient refused information Prior Level of Functioning Durable Medical Equipment None Living Arrangement House;Lives alone Behavior Oriented Income Information Income Source Self-employed Income/Expense Information Income meets expenses Potential Discharge Needs Anticipated discharge level of care Return Home Dialysis No Psychiatric services No Communications Important Message from Medicare notice given to patient? No [place] letter given? No Patient choice (Home Health/Hospice) list given to patient/field support representative? No Long-Term Facility list given to patient/field support representative? No Initial Assessment: Admission Source: SDS Impression: Pacemaker lead displacement Plan Includes: Revision of lead Primary Source of Transportation: Patient drives self to all appointments Health Insurance Coverage: Medicare/Aetna Prescription Coverage: Medicare/Aetna Pharmacy: [place], [place] Primary Care Provider: Dr. Ronald Castrejon Additional information: Met with patient and her daughter at bedside for initial discharge planning. She is alert, oriented and cooperative. She lives alone in a house. She still drives to all of herappointments. Has no durable medical equipment. Pharmacy is [place], [place]. Goal upon discharge is to return home. No needs identified at this time. Reviewed and verified face sheet with patient Case management will follow for discharge planning and send referrals as needed. documented in this encounter H&P Notes * Reynaldo Flanneyr DO - 09/14/2018 10:18 AM CDT I have reviewed the H&P, examined the patient, and endorse the findings as written. Plan of Care : Based on the above findings, I consider Abena Giron to be an acceptable risk for: Procedure(s): IMPLANT ATRIAL PPM SYTEM WITH ATRIAL ELECTRODE (GEN AND LEAD, NEW OR REPLACE) 17635 - LEAD REVISIONONLY Source Note - Reynaldo Flannery DO - 09/11/2018 11:01 AM CDT documented in this encounter Nursing Notes * Trinidad Giraldo RN - 09/15/2018 9:31 AM CDT Patient to be discharged home with self care, patient afebrile, skin healing, vital signs stable, voiding, defecating, eating well, drinking well. documented in this encounter Miscellaneous Notes * Plan of Care - Trinidad Giraldo RN - 09/15/2018 9:30 AM CDT Problem: Health Behavior: Goal: Understanding of discharge needs will improve Outcome: Adequate for Discharge Problem: Activity: Goal: Capacity to carry out activities will improve Outcome: Adequate for Discharge Problem: Cardiac: Goal: Cardiovascular alteration will improve Outcome: Adequate for Discharge Goals: Clinical Goals for the Shift: pain management Summary: Patient has met goals adequate for discharge. * Anesthesia Post-op Follow-up Note - Lizbet Stein CRNA - 09/15/2018 7:24 AM CDT Patient: Abena Giron Procedure(s): IMPLANT ATRIAL PPM SYTEM WITH ATRIAL ELECTRODE (GEN AND LEAD, NEW OR REPLACE) [id number] Patient location: patient room Last vitals: Vitals: 09/15/18 0730 BP: Pulse: 72 Resp: Temp: SpO2: Level of consciousness: alert and orientated Post-anesthesia pain: none noted at this time Anesthetic complications: none noted at this time. * Plan of Care - Karen Aldrich RN - 09/15/2018 4:38 AM CDT Goals: Clinical Goals for the Shift: Goal for the shift is to monitor labs, vitals and have a chest xray in the morning. Pt will be NPO until after the results of the chest xray. Summary: * Plan of Care - Sherine Larose RN - 09/14/2018 5:08 PM CDT Goals: Clinical Goals for the Shift: decreased pain Summary: Patient was admitted for a pacemaker lead revision. Tolerated well. Minimal pain- ice packprovided. * Post-Procedure Note - Reynaldo Flannery DO - 09/14/2018 11:46 AM CDT IMPLANT ATRIAL PPM SYTEM WITH ATRIAL ELECTRODE (GEN AND LEAD, NEW OR REPLACE) 28949 - LEAD REVISIONONLY And removal of old atrial lead. Op Note Attending Income Tax Analyst: Reynaldo Flannery DO Primary: Reynaldo Flannery DO Income Tax Analyst Assistants: none CV Documenter: Jennie Niño RN CV Nurse: Renita Leiva RN CV Scrub: Yessy Kim CV Linux System Admin: Brielle Parker RN Date of Procedure: 09/14/2018 Specimens: No specimen collected in procedure Preoperative Diagnosis: atrial lead malfunction, SSS, PAF, tachybrady Postoperative Diagnosis: same Name of Procedure: Procedure(s): IMPLANT ATRIAL PPM SYTEM WITH ATRIAL ELECTRODE (GEN AND LEAD, NEW OR REPLACE) 77202 - LEAD REVISIONONLY with removal of old atrial lead and insertion of new atrial lead Findings: Local 1% lido. Pacer pocket opened with sharp and blunt dissection. Pacer and leads freed from fibrous adhesions and removed from pocket. L axillary vein x 1. Old atrial lead tested with threshold 5 V. This lead was removed. New A lead placed in RAA with good sensing and pacing thresholds. Connected to pacer PG. Pocket irrigated with Abx lavage and inserted into pocket. Pocket closed with 3 layers of suture. Estimated Blood Loss: 30 cc's Intra-Procedural Fluids: See anesthesia notes Blood/Blood Products Transfused: none Implants: Implant Name Type Inv. Item Serial No. [employer] Docent Lot No. Technical data No. Used [employer] [id number] SOLIA S 45CM BIPOLAR ACTIVE FIXATION LEAD PACING STEROID ELUTING - [id number] Lead [employer] [id number] Solia S 45cm Bipolar Active Fixation Lead Pacing Steroid Eluting [id number] [employer] [id number] p wave 1.0mV Threshold 1.1 V Impedance 510 ohms 1 MEDTRONIC CARDIAC RHYTHM MGMT [id number] TYRX 2.7X2.5IN MEDIUM ENVELOPE ABSORBABLE POLYARYLATE MINOCYCLINE - [id number] MEDTRONIC CARDIAC RHYTHM MGMT [id number] TYRX 2.7X2.5IN MEDIUM ENVELOPE ABSORBABLE POLYARYLATE MINOCYCLINE [employer] [id number] N/A 1 Complications: None Condition on Discharge from the operating room was stable Reynaldo Flannery DO Date: 09/14/2018 Time: 11:46 AM * Pre-Procedure Instructions - Lucy Christina RN - 09/10/2018 3:27 PM CDT We are pleased that you and your doctor have chosen [facility] for your surgery. We hope that the following information will help make your visit a pleasant one. Surgery Date: 09/14/2018 arrive at 0800 Before your surgery: ?? Notify your doctor of ANY change in your health such as a cold, sore throat, fever, any infection or a change in the problem for which you are having your surgery. ?? Follow any instructions given to you by your doctor or surgeon. Check with your doctor if you need to STOP taking: ?? Aspirin (ordered by your doctor) ?? xarelto One week before surgery STOP taking: ?? All herbal supplements ?? Aspirin (not ordered by your doctor) ?? Aleve, Advil, Motrin, Ibuprofen, or other similar medications (Tylenol is okay). 24 hours before your surgery: ?? No smoking or alcoholic drinks. Night before your surgery: ?? Do not eat anything after midnight. ?? Follow surgeon's instructions for anti-bacterial shower night before and morning of surgery. Day of surgery: ?? Clear liquids until 0700 a.m. ?? ONLY take these pills with a tiny sip of water. Pre-Surgery Instructions: Medication Instructions ??? Take the medications your doctor instructed you to take the morning of your procedure. Any questions please call your doctor. ?? Use no make-up, nail maori, lotions, oils or powders on your skin. ?? Wear comfortable clothes that will not be tight in the area of your surgery. ?? Leave all valuables and jewelry (including all body piercing jewelry) at home. ?? If you use a CPAP machine, please bring it with you to wear after your surgery. ?? Please bring your a photo ID and insurance cards with you. ?? Check in at the Registration Desk. ?? If you are 17 years old or younger, a parent or guardian must come with you. After your Outpatient Surgery: ?? You must have a responsible adult to drive you home, you will not be allowed to drive or take a cab home. ?? We recommend you have someone stay with you for 24 hours after your surgery. What to bring if you are spending the night with us: ?? Bring toiletry items such as: robe, slippers, toothbrush, toothpaste, brush or comb. ?? Bring contact lens, hearing aids, glass cases and denture container if you use any of these items. ?? The hospital will provide you with a gown. Questions or concerns: ?? If you have any questions or concerns regarding your procedure, contact your surgeon as soon as possible. ?? If you have questions regarding your Pre-Admission Testing, please call us. We can be reached atthe number posted at the top of the page. documented in this encounter Plan of Treatment Not on file documented as of this encounter Procedures Procedure Name Priority Date/Time Associated Diagnosis Comments XR CHEST PA LATERAL 2 VIEWS Routine 09/15/2018 5:27 AM CDT ECG 12-LEAD Routine 09/14/2018 2:11 PM CDT XR CHEST 1 VIEW STAT 09/14/2018 12:16 PM CDT IMPLANT ATRIAL PPM SYTEM WITH ATRIAL ELECTRODE (GEN AND LEAD, NEW OR REPLACE) Routine 09/14/2018 11:36 AM CDT documented in this encounter Results [...] Flannery DO IMG XR PROCEDURES Final Result * ECG 12 lead (09/14/2018 2:11 PM CDT) 09/14/2018 2:11 PM CDT Narrative [facility] - 09/14/2018 5:03 PM CDT Vent Rate: 65 bpm RR Interval: 919 msec VT Interval: 203 msec QRS Duration: 92 msec QT Interval: 427 msec QTC Interval: 438 msec P-R-T Adger: 103 - 29 - 24 degrees ELECTRONIC ATRIAL PACEMAKER ABNORMAL RHYTHM ECG Compared to prior EKG atrial pacing has replaced atrial fibrillation Heart rate decreased Lateral ST depressions are no longer present Electronically Signed By: Jose Scherer MD Reynaldo Flannery DO ECG ORDERABLES Final Re sult [facility] * X-ray chest 1 view (09/14/2018 12:16 PM CDT) Anatomical Region Laterality Modality Body, Chest N/A Computed Radiogr aphy 09/14/2018 12:2 7 PM CDT Impressions 09/14/2018 12:28 PM CDT No acute cardiopulmonary finding. Electronically signed by: Baljit Fernández M.D. Narrative 09/14/2018 12:28 PM CDT RESULT: EXAMINATION: Portable chest Date: 09/14/2018 12:05 PM History: Cardiac pacemaker, atrial fibrillation, essential hypertension Comparison: Comparison is made to the radiographic examination dated 09/10/2018 Findings: Normal heart size. ??Left chest pacemaker. ??No pleural effusion , vascular congestion, focal consolidation, or pneumothorax. No acute osseous abnormality. Procedure Note Baljit Fernández MD - 09/14/2018 RESULT: EXAMINATION: Portable chest Date: 09/14/2018 12:05 PM History: Cardiac pacemaker, atrial fibrillation, essential hypertension Comparison: Comparison is made to the radiographic examination dated 09/10/2018 Findings: Normal heart size. Left chest pacemaker. No pleural effusion , vascular congestion, focal consolidation, or pneumothorax. No acute osseous abnormality. IMPRESSION: No acute cardiopulmonary finding. Electronically signed by: Baljit Fernández M.D. Reynaldo Flannery DO IMG XR PROCEDURES Final Result * IMPLANT ATRIAL PPM SYTEM WITH ATRIAL ELECTRODE (GEN AND LEAD, NEW OR REPLACE) (09/14/2018 11:36 AM CDT) Anatomical Region Laterality Modality X-Ray Angiograph y Narrative 09/14/2018 11:54 AM CDT IMPLANT ATRIAL PPM SYTEM WITH ATRIAL ELECTRODE (GEN AND LEAD, NEW OR REPLACE) [id number] - LEAD REVISION ONLY ??And removal of old atrial lead. ?Op Note ?? Attending Income Tax Analyst: Reynaldo Flannery, DO Primary: Reynaldo Flannery, DO ?? Income Tax Analyst Assistants: none ?? CV Documenter: Jennie Niño RN CV Nurse: Renita Leiva RN CV Scrub: Yessy Kim CV Linux System Admin: Brielle Parker RN ?? Date of Procedure: 09/14/2018 ?? Specimens: No specimen collected in procedure ?? Preoperative Diagnosis: atrial lead malfunction, SSS, PAF, tachybrady ?? Postoperative Diagnosis: same ?? Name of Procedure: Procedure(s): IMPLANT ATRIAL PPM SYTEM WITH ATRIAL ELECTRODE (GEN AND LEAD, NEW OR REPLACE) 23519 - LEAD REVISION ONLY with removal of old atrial lead and insertion of new atrial lead ?? Findings: Local 1% lido. ??Pacer pocket opened with sharp and blunt dissection. Pacer and leads freed from fibrous adhesions and removed from pocket. L axillary vein x 1. ??Old atrial lead tested with threshold 5 V. ??This lead was removed. New A lead placed in RAA with good sensing and pacing thresholds. Connected to pacer PG. ??Pocket irrigated with Abx lavage and inserted into pocket. Pocket closed with 3 layers of suture. ?? Estimated Blood Loss: 30 cc's ?? Intra-Procedural Fluids: See anesthesia notes ?? Blood/Blood Products Transfused: none ?? Implants: Implant Name Type Inv. Item Serial No. [employer] Docent Lot No. Technical data No. Used [employer] [id number] SOLIA S 45CM BIPOLAR ACTIVE FIXATION LEAD PACING STEROID ELUTING - [id number] - [id number] Lead [employer] [id number] Solia S 45cm Bipolar Active Fixation Lead Pacing Steroid Eluting [id number] [employer] 263723 p wave 1.0mV Threshold 1.1 V Impedance 510 ohms 1 MEDTRONIC CARDIAC RHYTHM MGMT [id number] TYRX 2.7X2.5IN MEDIUM ENVELOPE ABSORBABLE POLYARYLATE MINOCYCLINE - [id number] ?? MEDTRONIC CARDIAC RHYTHM MGMT [id number] TYRX 2.7X2.5IN MEDIUM ENVELOPE ABSORBABLE POLYARYLATE MINOCYCLINE ?? [employer] [id number] N/A 1 ? Complications: None ?? Condition on Discharge from the operating room was stable ?? Reynaldo Flannery, DO ?? Date: 09/14/2018 Time: 11:46 AM ?? us Reynaldo Flannery DO CV ELECTROPHYSIOLOGY PRO CS Final Result documented in this encounter Visit Diagnoses Diagnosis Sinus node dysfunction (CMS/HCC) (HCC) documented in this encounter Administered Medications Inactive Administered Medications - up to 3 most recent administrations Medication Order MAR Action Action Date Dose Rate Site acetaminophen (TYLENOL) tablet 650 mg 650 mg, oral, Every 4 hours PRN, 1st line for pain, fever, fever greater than 38.3 C, Starting on Fri09/14/18 at 1356, Recovery (CV), Indications: Fever, PainIndications:Fever,Pain Given 09/14/2018 11:29 PM CDT 650 mg Given 09/14/2018 2:26 PM CDT 650 mg apixaban (ELIQUIS) tablet 5 mg 5 mg, oral, 2 times daily, First dose on Fri09/14/18 at 2100, May crush and suspend in 60 ml of water, D5W, apple juice or apple sauce. If on heparin infusion, discontinue heparin infusion upon first administration of apixaban., Indications: atrial fibrillationIndications:atrial fibrillation Given 09/15/2018 8:58 AM CDT 5 mg Given 09/14/2018 8:30 PM CDT 5 mg ascorbic acid (VITAMIN C) tablet/chewable tablet 2,000 mg 2,000 mg, oral, Daily, First dose on Fri09/14/18 at 1430 Given 09/15/2018 8:58 AM CDT 2,000 mg fentaNYL (SUBLIMAZE) 50 mcg/mL preservative free injection - ADS Override Pull Starting on Fri09/14/18 at 1219, For 1 dose, Created by cesia kelsey fentaNYL (SUBLIMAZE) preservative free injection 25 mcg 25 mcg, intravenous, Every 10 min PRN, 1st line for pain, Starting on Fri09/14/18 at 1226, For 4 doses, Phase I Given 09/14/2018 1:30 PM CDT 25 mcg Given 09/14/2018 1:08 PM CDT 25 mcg Given 09/14/2018 12:52 PM CDT 25 mcg loratadine (CLARITIN) tablet 10 mg 10 mg, oral, Daily, First dose on Fri09/14/18 at 1430 Given 09/15/2018 8:58 AM CDT 10 mg metoprolol XL (TOPROL-XL) extended release tablet 25 mg 25 mg, oral, 2 times daily, First dose on Fri09/14/18 at 1430, Tablets that are scored may be split, but do not crush, chew, dissolve, open or otherwise manipulate tablet/capsule. Given 09/15/2018 8:58 AM CDT 25 mg Given 09/14/2018 8:30 PM CDT 25 mg sodium chloride 0.9% flush 0.5-20 mL 0.5-20 mL, intra-catheter, Every 8 hours scheduled, First dose on Fri09/14/18 at 1430, Recovery (CV), Flush volume based on line type and size. , Indications: FlushingIndications:Flushing Given 09/14/2018 8:30 PM CDT 10 mL vancomycin 1000 mg/200 mL in dextrose 5% (premix) 1,000 mg 1,000 mg, intravenous, Administer over 60 Minutes, Once, On Fri09/14/18 at 1030, For 1 dose, Indications: Prophylaxis, SurgicalIndications:Prophylaxis, Surgical New Bag 09/14/2018 9:40 AM CDT 1,000 mg 200 mL/hr vancomycin 1000 mg/200 mL in dextrose 5% (premix) 1,000 mg 1,000 mg, intravenous, Administer over 60 Minutes, Once, On Fri09/14/18 at 2100, For 1 dose, Recovery (CV), Administer 12 hours after pre-op dose., Indications: Prophylaxis, SurgicalIndications:Prophylaxis, Surgical New Bag 09/14/2018 10:09 PM CDT 1,000 mg documented in this encounter Discontinued Medications Medication Sig Discontinue Reason Start Date End Da te pantoprazole DR (PROTONIX) 40 mg EC tablet Take 1 tablet (40 mg total) by mouth daily 07/30/2018 09/10/2018 dilTIAZem XR (CARDIZEM CD,DILACOR XR) 240 mg 24 hr capsule Take 1 capsule (240 mg total) by mouth daily 07/31/2018 09/10/2018 magnesium gluconate 200 mg tabletIndications:hypoma gnesemia 200 mg. 09/10/2018 UNABLE TO FIND Take 1 each by mouth daily tumeric Therapy completed 09/14/2018 documented as of this encounter Historical Medications * This list may reflect changes made after this encounter. mupirocin (BACTROBAN) 2 % nasal ointmentIndication s:Methicillin-Resi stant S. Aureus Nasal Colonization Apply 1 application to each nostril 2 (two) times a day Use one-half of tube in each nostril twice daily for five (5) days. After application, press sides of nose together and gently massage. 9 artificial tears (SYSTANE) 0.3 % gel Apply 1 drop to both eyes 4 (four) times a day as needed 3 UNABLE TO FIND Take 1 each by mouth daily tumeric 9 loratadine (CLARITIN) 10 mg tablet Take 10 mg by mouth daily as needed 0 MAGNESIUM ORAL Take 2 capsules by mouth daily 3 metoprolol XL (TOPROL-XL) 25 mg 24 hr tablet Take 25 mg by mouth 2 (two) times a day 4 09/09/2018 9 added in this encounter Active and Recently Administered Medications Times are shown in CDT. Scheduled Medication Order 09/13/2018 09/14/2018 09/15/2018 acetaminophen (TYLENOL) tablet 1,000 mg 1,000 mg, oral, Once, On Fri09/14/18 at 1645, For 1 dose, Pre-Op, Indications: Pre-Emptive Analgesia 1853 (Not Given - Provider: Mellissa Najera RN - Reason: Patient/family refused) apixaban (ELIQUIS) tablet 5 mg 5 mg, oral, 2 times daily, First dose on Fri09/14/18 at 2100, May crush and suspend in 60 ml of water, D5W, apple juice or apple sauce. If on heparin infusion, discontinue heparin infusion upon first administration of apixaban., Indications: atrial fibrillation 2029 (Given - Provider: Karen Aldrich RN) 0858 (Given - Provider: Trinidad Giraldo RN) ascorbic acid (VITAMIN C) tablet/chewable tablet 2,000 mg 2,000 mg, oral, Daily, First dose on Fri09/14/18 at 1430 1853 (Not Given - Provider: Mellissa Najera RN - Reason: Order parameters not met - Comment: took at home) 0858 (Given - Provider: Trinidad Giraldo RN) fluticasone propionate (FLONASE) 50 mcg/actuation nasal spray 2 spray 2 spray, each nostril, Daily, First dose on Fri09/14/18 at 1430 1524 (Not Given - Provider: Sherine Larose RN - Reason: Patient/family refused) 0859 (Not Given - Provider: Trinidad Giraldo RN - Reason: Patient/family refused) loratadine (CLARITIN) tablet 10 mg 10 mg, oral, Daily, First dose on Fri09/14/18 at 1430 1525 (Not Given - Provider: Sherine Larose RN - Reason: Patient/family refused) 0858 (Given - Provider: Trinidad Giraldo RN) metoprolol XL (TOPROL-XL) extended release tablet 25 mg 25 mg, oral, 2 times daily, First dose on Fri09/14/18 at 1430, Tablets that are scored may be split, but do not crush, chew, dissolve, open or otherwise manipulate tablet/capsule. 173 (Not Given - Provider: Mellissa Najera RN - Reason: Other - Comment: patient took this am at home)2029 (Given - Provider: Karen Aldrich RN) 0858 (Given - Provider: Trinidad Giraldo RN) sodium chloride 0.9% flush 0.5-20 mL 0.5-20 mL, intra-catheter, Every 8 hours scheduled, First dose on Fri09/14/18 at 1430, Recovery (CV), Flush volume based on line type and size. , Indications: Flushing 1526 (Not Given - Provider: Sherine Larose RN - Reason: IV Infusing)2030 (Given - Provider: Karen Aldrich RN) 0647 (Not Given - Provider: Karen Aldrich RN - Reason: Other) vancomycin 1000 mg/200 mL in dextrose 5% (premix) 1,000 mg (COMPLETED) 1,000 mg, intravenous, Administer over 60 Minutes, Once, On Fri09/14/18 at 1030, For 1 dose, Indications: Prophylaxis, Surgical 0940 (New Bag - Provider: Renita Leiva, BRAYAN)1100 (Stopped - Provider: Mellissa Najera RN) vancomycin 1000 mg/200 mL in dextrose 5% (premix) 1,000 mg (COMPLETED) 1,000 mg, intravenous, Administer over 60 Minutes, Once, On Fri09/14/18 at 2100, For 1 dose, Recovery (CV), Administer 12 hours after pre-op dose., Indications: Prophylaxis, Surgical 2209 (New Bag - Provider: Karen Aldrich RN)2309 (Stopped - Provider: Karen Aldrich RN) PRN Medication Order 09/13/2018 09/14/2018 09/15/2018 acetaminophen (TYLENOL) tablet 650 mg 650 mg, oral, Every 4 hours PRN, 1st line for pain, fever, fever greater than 38.3 C, Starting on Fri09/14/18 at 1356, Recovery (CV), Indications: Fever, Pain 1426 (Given - Provider: Sherine Larose RN)2329 (Given - Provider: Karen Aldrich RN) ALPRAZolam (XANAX) tablet 0.5 mg 0.5 mg, oral, 3 times daily PRN, anxiety, Starting on Fri09/14/18 at 1356 bacitracin 50,000 Units in sodium chloride 0.9% 500 mL irrigation solution (CANCELED) As needed, Starting on Fri09/14/18 at 1124, Intra-Procedure (CV) 1124 (Given - Provider: Reynaldo Flannery DO) fentaNYL (SUBLIMAZE) preservative free injection 25 mcg (COMPLETED) 25 mcg, intravenous, Every 10 min PRN, 1st line for pain, Starting on Fri09/14/18 at 1226, For 4 doses, Phase I 1227 (Given - Provider: Yessy Mccormick RN)1252 (Given - Provider: Yessy Mccormick RN)1308 (Given - Provider: Yessy Mccormick RN)1330 (Given - Provider: Yessy Mccormick RN) gentamicin (GARAMYCIN) 80 mg in sodium chloride 0.9% 500 mL irrigation solution (CANCELED) As needed, Starting on Fri09/14/18 at 1125, Intra-Procedure (CV) 1125 (Given - Provider: Reynaldo Flannery DO) iodixanol (VISIPAQUE) 320 mg iodine/mL injection (CANCELED) As needed, Starting on Fri09/14/18 at 1145, Intra-Procedure (CV) 1145 (Given - Provider: Reynaldo Flannery DO - Comment: venogram) lidocaine (XYLOCAINE) 10 mg/mL (1 %) injection (CANCELED) As needed, Starting on Fri09/14/18 at 1100, Intra-Procedure (CV), Indications: Administration of Local Anesthesia 1100 (Given - Provider: Reynaldo Flannery DO) ondansetron (ZOFRAN) injection 4 mg 4 mg, intravenous, Administer over 2 Minutes, Every 8 hours PRN, nausea, vomiting, Starting on Fri09/14/18 at 1356, Indications: Nausea and Vomiting sodium chloride 0.9% bolus (COMPLETED) Continuous PRN, Starting on Fri09/14/18 at 1059, Intra-Procedure (CV) 1059 (New Bag - Provider: Brielle Parker RN - Comment: flush put on table)1330 (Stopped - Provider: Mellissa Najera RN) sodium chloride 0.9% flush 0.5-20 mL 0.5-20 mL, intra-catheter, As needed, line care, Starting on Fri09/14/18 at 1607, Pre-Op, Flush volume based on line type and size. Flush before and after each use. , Indications: Flushing documented in this encounter Orders Medications Ordered That Flaco ht Not Have Been Administered Count Last Ordered Date First Ordered Date acetaminophen (TYLENOL) tablet 1,000 mg 1 0 09/14/2018 ALPRAZolam (XANAX) tablet 0.5 mg 1 09/15/19 19 bacitracin 50,000 Units in s odium chloride 0.9% 500 mL irrigation solution 1 09/14/2018 fluticasone propionate (FLON ASE) 50 mcg/actuation nasal spray 2 spray 1 09/14/2018 gentamicin (GARAMYCIN) 80 mg in sodium chloride 0.9% 500 mL irrigation solution 1 09/14/2018 iodixanol (VISIPAQUE) 320 mg iodine/mL injection 09/14/2018 Lactated Ringer's (LR) infusion 1 9 lidocaine (XYLOCAINE) 10 mg/ mL (1 %) injection 1 09/14/2018 naloxone (NARCAN) 0.4 mg/mL injection 0.04-0.4 mg 1 09/14/2018 ondansetron (ZOFRAN) injection 4 mg 1 09/14 sodium chloride 0.9% bolus 1 09/14/2018 sodium chloride 0.9% flush 0.5-20 mL 1 08/23 vancomycin 1000 mg/200 mL in dextrose 5% (premix) 1,000 mg 1 09/14/2018 General Supply Count Last Ordered Date First Or dered Date ALARIS 8015 BRAIN 1 09/14/2018 ALARIS IV PUMP ARM 1 09/14/2018 Admission Count Last Ordered Date First Orde red Date ASSIGN PATIENT STATUS 1 09/14/2018 Transfer Count Last Ordered Date First Orde red Date TRANSFER PATIENT 2 09/14/2018 CORE MEASURES Count Last Ordered Date First Ord ered Date REASON FOR NO VTE PROPHYLAXI S - HOSPITAL ADMISSION - MEDICATIONS 1 09/14/2018 documented in this encounter Care Teams Auto Body Customizer Relationship Specialty Start Date End Date Ronald Castrejon MD PCP - General 06/21/16 07/17/22 Reynaldo Flannery DO Consulting Physician Cardiology 09/26/17 Guanakito Holland MD Consulting Physician Cardiovascular Disease 07/29/18 Jaclyn Eid, RN [address] [place] [address] Assistant Passenger Locomotive Engineer 07/31/18 11/29/18 documented as of this encounter
--- OUTSIDE RECORDS SUMMARY | 2024-04-11 06:39 | XMS_ITS | Encounter Summary ---
Author Organization [facility] Address [address] [place] [address] Care Team Providers Care Informatica Architect Name Role Phone Ronald Castrejon MD Primary Care Provider [phone] Reynaldo Flannery DO Unavailable [phone] Encounter Details Date Type Department Care Team (Late st Contact Info) Description 02/03/2018 Telephone [facility] [address] [facility] [address] [place] [address] Crissy Brothers MA Social History Tobacco Use Types Packs/Day Years Used Date Smoking Tobacco: Former Smokeless Tobacco: Never Alcohol Use Standard Drinks/Week Comments No 0 (1 standard drink = 0.6 oz pur e alcohol) Comments Unknown Sex and Gender Information Value Date Recorded Sex Assigned at Not on file Legal Sex Female 11:18 AM COMMUNICATIONS TECHNOLOGIST Gender Identity Female 10/09/2022 9:08 AM CDT Sexual Orientation Choose not to disclose 2022 9:08 AM CDT documented as of this encounter Miscellaneous Notes * Telephone Encounter - Crissy Brothers MA - 02/03/2018 10:00 AM CST TRACKING Pt has already had colonoscopy 11/2017 UNICATIONS TECHNOLOGIST documented in this encounter Plan of Treatment Not on file documented as of this encounter Visit Diagnoses Not on filedocumented in this encounter Care Teams Informatica Architect Relationship Specialty Start Date End Date Ronald Castrejon MD PCP - General 06/21/16 07/17/22 Reynaldo Flannery DO Consulting Physician Cardiology 09/26/17 documented as of this encounter
--- OUTSIDE RECORDS SUMMARY | 2024-04-11 06:39 | XMS_ITS | Encounter Summary ---
Author Organization [facility] Address [address] [place] [address] Care Team Providers Care Branch Service Leader Name Role Phone Ronald Castrejon MD Primary Care Provider [phone] Reynaldo Flannery DO Unavailable [phone] Guanakito Holland MD Unavailable [phone] Jaclyn Eid RN Unavailable [phone] Reason for Visit * Reason Onset Date Comments Med Refill 08/19/2018 Encounter Details Date Type Department Care Team (Late st Contact Info) Description 08/19/[address] [facility] Accountable Care Organization [address] [place] [id number] Jaclyn Eid, BRAYAN [address] [place] [address] [address] [place] [address] Med Refill Social History Tobacco Use Types Packs/Day Years Used Date Smoking Tobacco: Former Smokeless Tobacco: Never Alcohol Use Standard Drinks/Week Comments No 0 (1 standard drink = 0.6 oz pur e alcohol) Comments Unknown Sex and Gender Information Value Date Recorded Sex Assigned at Not on file Legal Sex Female 11:18 AM SP[employer]ER [employer] Gender Identity Female 10/09/2022 9:08 AM CDT Sexual Orientation Choose not to disclose 2022 9:08 AM CDT documented as of this encounter Ordered Prescriptions Prescription Sig Dispense Quantity Refills Last Filled Start Date End Date fluticasone propionate (FLONASE) 50 mcg/actuation nasal spray Administer 2 sprays into each nostril daily 16 g 11 08/19/2018 9 documented in this encounter Miscellaneous Notes * Telephone Encounter - Yessy Mata MA - 08/19/2018 2:40 PM CDT Request sent to pharmacy * Telephone Encounter - Jaclyn Eid RN - 08/19/2018 2:27 PM CDT CM s/w pt in the [facility] program. Pt is requesting a refill of her Flonase be sent to the pharmacy in her record. Thank You, Jaclyn Eid automotive parts counterperson [facility] ACO [phone] documented in this encounter Plan of Treatment Not on file documented as of this encounter Visit Diagnoses Not on filedocumented in this encounter Discontinued Medications Medication Sig Discontinue Reason Start Date End Da te fluticasone (FLONASE) 50 mcg/actuation nasal spray INHALE 2 SPRAY BY INTRANASAL ROUTE EVERY DAY IN EACH NOSTRIL Reorder 04/11/2017 08/19/2018 documented as of this encounter Care Teams Branch Service Leader Relationship Specialty Start Date End Date Ronald Castrejon MD PCP - General 06/21/16 07/17/22 Reynaldo Flannery DO Consulting Physician Cardiology 09/26/17 Guanakito Holland MD Consulting Physician Cardiovascular Disease 07/29/18 Jaclyn Eid, RN [address] [place] [address] [place] [address] Virology Teacher 07/31/18 11/29/18 documented as of this encounter
--- OUTSIDE RECORDS SUMMARY | 2024-04-11 06:39 | XMS_ITS | Encounter Summary ---
Author Organization [facility] Healthcare Address [address] [place] [address] Care Team Providers Care Technical Specialist Cytology Name Role Phone Ronald Castrejon MD Primary Care Provider [phone] Reynaldo Flannery DO Unavailable [phone] Guanakito Holland MD Unavailable Jaclyn Eid RN Unavailable [phone] Encounter Details Date Type Department Care Team (Latest Contact Info) Description 09/29/2018 4:22 PM CDT - 10/01/2018 1:59 PM CDT Hospital Encounter [place] [phone] [place] [id number] [address] Christa Suazo MD [address] [place] [address] [phone] Atrial fibrillation with rapid ventricular response (CMS/HCC) (Primary Dx) Discharge Disposition: Discharge to [...] on file 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 Gender Identity Female 10/09/2022 9:08 AM CDT Sexual Orientation Choose not to disclose 2022 9:08 AM CDT documented as of this encounter Last Filed Vital Signs Vital Sign Reading Time Taken Comments Blood Pressure 147/81 10/01/2018 7:00 AM CDT Pulse 73 10/01/2018 8:00 AM CDT Temperature 36.8 ??C (98.3 ??F) 10/01/2018 7:00 AM CD T Respiratory Rate 18 10/01/2018 4:00 AM CDT Oxygen Saturation 99% 10/01/2018 7:00 AM CDT Inhaled Oxygen Concentration - - Weight 74.4 kg (164 lb 0.4 oz) 09/30/2018 6:00 A M CDT Height 154.9 cm (5' 1 ) 09/29/2018 6:54 PM CDT Body Mass Index 30.99 09/29/2018 6:54 PM CDT documented in this encounter Discharge Diagnoses Diagnosis Paroxysmal atrial fibrillation (CMS/[facility]) ([facility]) - PAROXYSMAL ATRIAL FIBRILLATION Atrial fibrillation Hyperlipidemia - HYPERLIPIDEMIA, UNSPECIFIED Other and unspecified hyperlipidemia Anxiety disorder - ANXIETY DISORDER, UNSPECIFIED Anxiety state, unspecified Obstructive sleep apnea - OBSTRUCTIVE SLEEP APNEA (ADULT) (PEDIATRIC) Obstructive sleep apnea (adult) (pediatric) Hypertensive heart disease with heart failure (CMS/HCC) ([facility]) - HYPERTENSIVE HEART DISEASE WITH HEART FAILURE Unspecified hypertensive heart disease with heart failure Hypertensive urgency - HYPERTENSIVE URGENCY Atherosclerotic heart disease of [place] coronary artery without angina pectoris - ATHEROSCLEROTIC HEART DISEASE OF [place] CORONARY ARTERY WITHOUT ANGINA PECTORIS Sick sinus syndrome (CMS/HCC) ([facility]) - SICK SINUS SYNDROME Sinoatrial node dysfunction Heart failure ([facility]) - HEART FAILURE, UNSPECIFIED Unspecified heart failure Gastro-esophageal reflux disease without esophagitis - GASTRO-ESOPHAGEAL REFLUX DISEASE WITHOUT ESOPHAGITIS Obesity - OBESITY, UNSPECIFIED Obesity, unspecified Major depressive disorder, single episode - MAJOR DEPRESSIVE DISORDER, SINGLE EPISODE, UNSPECIFIED Major depressive disorder, single episode, unspecified Osteoarthritis - UNSPECIFIED OSTEOARTHRITIS, UNSPECIFIED SITE Osteoarthrosis, unspecified whether generalized or localized, unspecified site Body mass index (BMI) of 31.0-31.9 in adult - BODY MASS INDEX (BMI) 31.0-31.9, ADULT Chest pain - CHEST PAIN, UNSPECIFIED Unspecified chest pain [place] [employer] agent current use of anticoagulant - PRODUCTION GRIP (CURRENT) USE OF ANTICOAGULANTS group home current use of inhaled steroid - SKILLED NURSING (CURRENT) USE OF INHALED STEROIDS Other nursing home (current) drug therapy - OTHER SKILLED NURSING (CURRENT) DRUG THERAPY Allergy status to narcotic agent - ALLERGY STATUS TO NARCOTIC AGENT STATUS Allergy status to other drugs, medicaments and biological substances status - ALLERGY STATUS TO OTHER DRUGS, MEDICAMENTS AND BIOLOGICAL SUBSTANCES STATUS Personal history of nicotine dependence - PERSONAL HISTORY OF NICOTINE DEPENDENCE Acquired absence of other specified parts of digestive tract - ACQUIRED ABSENCE OF OTHER SPECIFIED PARTS OF DIGESTIVE TRACT Presence of cardiac pacemaker - PRESENCE OF CARDIAC PACEMAKER Cardiac pacemaker in situ Presence of intraocular lens - PRESENCE OF INTRAOCULAR LENS Cataract extraction status of right eye - CATARACT EXTRACTION STATUS, RIGHT EYE Cataract extraction status of left eye - CATARACT EXTRACTION STATUS, LEFT EYE Presence of other cardiac implants and grafts - PRESENCE OF OTHER CARDIAC IMPLANTS AND GRAFTS Family history of other mental and behavioral disorders - FAMILY HISTORY OF OTHER MENTAL AND BEHAVIORAL DISORDERS Family history of asthma and other chronic lower respiratory diseases - FAMILY HISTORY OF ASTHMA AND OTHER CHRONIC LOWER RESPIRATORY DISEASES Family history of diabetes mellitus - FAMILY HISTORY OF DIABETES MELLITUS Family history of malignant neoplasm - FAMILY HISTORY OF MALIGNANT NEOPLASM, UNSPECIFIED Family history of ischemic heart disease and other diseases of the circulatory system - FAMILY HISTORY OF ISCHEMIC HEART DISEASE AND OTHER DISEASES OF THE CIRCULATORY SYSTEM documented in this encounter Discharge Summaries * Christa Suazo MD - 10/01/2018 11:31 AM CDT Inpatient Discharge Summary BRIEF OVERVIEW Admitting Provider: Mannie Abad MD Discharge Provider: Christa Suazo MD Primary Care Physician at Discharge: Ronald Castrejon MD [phone] Admission Date: 09/29/2018 Discharge Date: 10/01/2018 Primary Discharge Diagnosis: Principal Problem: Atrial fibrillation with rapid ventricular response (CMS/HCC) Active Problems: Chest pain Chronic CHF (CMS/HCC) Hypertensive urgency GENNY (obstructive sleep apnea) Anxiety Secondary Discharge Diagnosis: Atrial fibrillation with rapid ventricular response (CMS/HCC) Chest pain Chronic CHF (CMS/HCC) Hypertensive urgency GENNY (obstructive sleep apnea) Anxiety * No resolved hospital problems. * DETAILS OF HOSPITAL STAY Presenting Problem Atrial fibrillation with rapid ventricular response (CMS/HCC) Hospital Course: This is a very pleasant 78-year-old white female who was admitted directly from cardiology saw office secondary to atrial fibrillation with RVR. The patient was having her pacemaker evaluated and wasfound to be in AFib with RVR. She admits to feeling on for the past week. The patient notes that she has been nauseated for about 1 hour after he eats for the past week. She does note that 2 days afte r she started to feel this way she stops taking her new proton pump inhibitor and had switch back to Prevacid, but the nausea has remained The patient was transitioned back to oral antiarrhythmic medications. She was started on oral amiodarone. She was observed overnight and did very well. She remains in sinus rhythm at this time. Patient will be discharged on current medications. I have instructed her to follow up with her GI doctor for her nausea. Test Results Pending at Discharge: Operative Procedures Performed: Procedure(s): CARDIOVERSION Other Procedures: None Pertinent Test Results: Xr Chest Pa Lateral 2 Views Result Date: 09/30/2018 Narrative: RESULT: HISTORY: Chest pain EXAMINATION: XR CHEST PA LATERAL 2 VIEWS ORDER DATE: 09/30/2018 8:35 AM FINDINGS: There are small scattered parenchymal and perihilar granulomatous calcifications. The cardiac and mediastinal outlines are unremarkable. There are no pleural effusions or infiltrates. No significant abnormalities are noted in the spine or remainder of the bony thorax. Cardiac pacemaker on the left. Impression: NO ACUTE PULMONARY CHANGE. Electronically signed by: Baljit Fernández M.D. Xr Chest Pa Lateral 2 View Result Date: 09/15/2018 Narrative: RESULT: HISTORY: The patient is a 78-year-old female who is at placement of a pacemaker.Comparison made with the previous study dated 09/14/2018. TECHNIQUE: PA and lateral view of the chest. FINDINGS: Lungs clear. Heart not enlarged. Aortic atherosclerosis. No failure. Left-sided transvenous pacemaker noted with electrode tips in good position. No pneumothorax. Impression: No active disease. Electronically signed by: Jaswinder Lira M.D. Xr Chest Pa Lateral 2 Views Result Date: 09/10/2018 Narrative: RESULT: EXAMINATION: PA AND LATERAL CHEST RADIOGRAPHS Date: 09/10/2018 1:00 PM History: Cardiac pacemaker, atrial fibrillation, essential hypertension Comparison: Comparison is made to the radiographic examination dated 07/30/2018. Findings: Normal heart size. Left chest pacemaker. No pleural effusion , vascular congestion, focal consolidation, or pneumothorax. No acute osseous abnormality. Impression: No acute cardiopulmonary finding. Electronically signed by: Gordy Childress M.D. X-ray Chest 1 View Result Date: 09/14/2018 Narrative: RESULT: EXAMINATION: Portable chest Date: 09/14/2018 12:05 PM History: Cardiac pacemaker,atrial fibrillation, essential hypertension Comparison: Comparison is made to the radiographic examination dated 09/10/2018 Findings: Normal heart size. Left chest pacemaker. No pleural effusion , vascular congestion, focal consolidation, or pneumothorax. No acute osseous abnormality. Impression: No acute cardiopulmonary finding. Electronically signed by: Baljit Fernández M.D. Implantable Cardiac Device Result Date: 09/14/2018 Narrative: IMPLANT ATRIAL PPM SYTEM WITH ATRIAL ELECTRODE (GEN AND LEAD, NEW OR REPLACE) 73472 - LEAD REVISION ONLY And removal of old atrial lead. ?? Op Note ?? Attending Server Developer: Reynaldo Flannery, DO Primary: Reynaldo Flannery, DO ?? Server Developer Assistants: none ?? CV Documenter: Jennie Niño RN CV Nurse: Renita Leiva RN CV Scrub: Yessy Kim CV Hair Preparer: Brielle Parker RN ?? Date of Procedure: 09/14/2018 ?? Specimens: No specimen collected inprocedure ?? Preoperative Diagnosis: atrial lead malfunction, SSS, PAF, tachybrady Postoperative Diagnosis: same ?? Name of Procedure: Procedure(s): IMPLANT ATRIAL PPM SYTEM WITH ATRIAL ELECTRODE (GEN AND LEAD, NEW OR REPLACE) 18957 - LEAD REVISION ONLY with removal of old atrial lead and insertionof new atrial lead ?? Findings: Local 1% lido. Pacer pocket opened with sharp and blunt dissection.Pacer and leads freed from fibrous adhesions and removed from pocket. L axillary vein x 1. Old atrial lead tested with threshold 5 V. This lead was removed. New A lead placed in RAA with good sensingand pacing thresholds. Connected to pacer PG. Pocket irrigated with Abx lavage and inserted into pocket. Pocket closed with 3 layers of suture. ?? Estimated Blood Loss: 30 cc's ?? Intra-Procedural Fluids: See anesthesia notes ?? Blood/Blood Products Transfused: none ?? Implants: Implant Name Type Inv. Item Serial No. Reserve Officer Lot No. Technical data No. Used [employer] [id number] SOLIA S 45CM BIPOLAR ACTIVE FIXATION LEAD PACING STEROID ELUTING - [id number] - [id number] Lead [employer] [id number] Solia S 45cm Bipolar Active Fixation Lead Pacing Steroid Eluting [id number] [employer] [id number] p wave 1.0mV Threshold 1.1 V Impedance 510 ohms 1 MED[employer]IC CARDIAC RHYTHM MGMT [id number] TYRX 2.7X2.5INMEDIUM ENVELOPE ABSORBABLE POLYARYLATE MINOCYCLINE - [id number] ?? MEDTR[employer] CARDIAC RHYTHM MGMT [id number] TYRX 2.7X2.5IN MEDIUM ENVELOPE ABSORBABLE POLYARYLATE MINOCYCLINE ?? [employer] [id number] N/A 1 ? Complications: None ?? Condition on Discharge from the operating room was stable ?? Madonnashari Flannery, DO ?? Date: 09/14/2018 Time: 11:46 AM ?? Recent Results (from the past 24 hour(s)) CBC without differential Collection Time: 10/01/18 4:25 AM Result Value Ref Range WBC 8.4 3.8 - 9.9 K/cumm Hgb 11.8 (L) 11.9 - 15.5 g/dL Hct 35.9 35.6 - 45.5 % Plt 180 150 - 400 K/cumm MPV 10.9 9.1 - 12.3 fL RBC 3.80 (L) 3.90 - 5.20 M/cumm MCV 94.5 81.3 - 96.4 fL MCH 31.1 27.1 - 33.3 pg MCHC 32.9 32.3 - 35.7 g/dL RDW CV 12.9 11.1 - 14.9 % RDW SD 44.2 35.7 - 48.1 fL NRBC Abs 0.00 0.00 - 0.01 K/cumm Discharge Details Physical Exam at Discharge: Discharge Condition: good Pulse: 73 Resp: 18 BP: 147/81 Temp: 36.8 ??C (98.3 ??F) Weight: 74.4 kg (164 lb 0.4 oz) BP 147/81 (BP Location: Left arm, Patient Position: Lying) Pulse 73 Temp 36.8 ??C (98.3 ??F) (Oral) Resp 18 Ht 154.9 cm (5' 1 ) Wt 74.4 kg (164 lb 0.4 oz) LMP (LMP Unknown) SpO2 99% BMI 30.99 kg/m?? Pertinent Exam Findings at Discharge: Patient is in normal sinus rhythm. She is still complaining of some epigastric discomfort after eating. Rest of exam is unremarkable. Labs at discharge: Recent Results (from the past 24 hour(s)) CBC without differential Collection Time: 10/01/18 4:25 AM Result Value Ref Range WBC 8.4 3.8 - 9.9 K/cumm Hgb 11.8 (L) 11.9 - 15.5 g/dL Hct 35.9 35.6 - 45.5 % Plt 180 150 - 400 K/cumm MPV 10.9 9.1 - 12.3 fL RBC 3.80 (L) 3.90 - 5.20 M/cumm MCV 94.5 81.3 - 96.4 fL MCH 31.1 27.1 - 33.3 pg MCHC 32.9 32.3 - 35.7 g/dL RDW CV 12.9 11.1 - 14.9 % RDW SD 44.2 35.7 - 48.1 fL NRBC Abs 0.00 0.00 - 0.01 K/cumm Discharge Disposition: Discharge to home or self care Prior Discharge Instructions: Activity Instructions Discharge activity: Resume normal activity Diet Instructions Adult Discharge Diet Diet Type: Return to previous diet Other Instructions Call provider for: persistent nausea or vomiting Other Follow-up Instructions for follow-up: call your GI doctor in 3 weeks for persistant nausea Discharge Medications: Your medication list START taking these medications amiodarone 200 mg tablet Commonly known as: PACERONE Take 1 tablet (200 mg total) by mouth 2 (two) times a day CHANGE how you take these medications fluticasone propionate 50 mcg/actuation nasal spray Commonly known as: FLONASE Administer 2 sprays into each nostril daily What changed: how much to take when to take this reasons to take this additional instructions CONTINUE taking these medications ALPRAZolam 0.25 mg tablet Commonly known as: XANAX Take 1 tablet (0.25 mg total) by mouth 2 (two) times a day as needed for anxiety artificial tears 0.3 % gel Commonly known as: SYSTANE cholecalciferol 2,000 unit tablet Commonly known as: VITAMIN D-3 take 1 tablet by oral route every day cyanocobalamin 100 mcg tablet Commonly known as: Vitamin B-12 digestive enzymes tablet ELIQUIS 5 mg tablet Generic drug: apixaban take 1 tablet by oral route 2 times every day loratadine 10 mg tablet Commonly known as: CLARITIN MAGNESIUM ORAL metoprolol XL 25 mg 24 hr tablet Commonly known as: TOPROL-XL mupirocin 2 % nasal ointment Commonly known as: BACTROBAN vitamin C 1,000 mg tablet Generic drug: ascorbic acid Outpatient Follow-Up: Future Appointments Date Time Provider Department Center 12/10/2018 8:30 AM KAZ STEVENS [facility] 12/24/2018 2:30 PM Ronald Castrejon MD [facility] No follow-up provider specified. Time Spent on Discharge: 35 minutes documented in this encounter Medications at Time [...] Refills Last Filled Start Date End Date amiodarone (PACERONE) 200 mg tabletIndications: Prevention of Recurrent Atrial Fibrillation Take 1 tablet (200 mg total) by mouth 2 (two) times a day 60 tablet 10/01/2018 12/24/2018 documented in this encounter Discharge Disposition Disposition Code Departure Means Destination Discharge to home or self care documented in this encounter Progress Notes * Prabhu Ribeiro NP - 10/01/2018 8:02 AM CDT Daily Progress SUBJECTIVE: Ms. Giron is lying in bed comfortably. No complaints. No acute events overnight. OBJECTIVE: Vitals: 10/01/18 0000 10/01/18 0400 10/01/18 0413 10/01/18 0758 BP: 109/74 120/77 BP Location: Left arm Left arm Patient Position: Lying Lying Pulse: 74 76 61 67 Resp: 18 18 Temp: 36.8 ??C (98.3 ??F) 36.9 ??C (98.4 ??F) TempSrc: Oral Oral SpO2: 100% 100% Weight: Height: Intake/Output Summary (Last 24 hours) at 10/01/2018 0802 Last data filed at 09/30/20182007 Gross per 24 hour Intake 565 ml Output 200 ml Net 365 ml Scheduled Medications Medication Dose Route Frequency ??? aluminum-magnesium hydroxide-simethicone (MAALOX) 40-40-4 mg/mL oral suspension 30 mL 30 mL oral TID AC ??? amiodarone (PACERONE) tablet 200 mg 200 mg oral BID ??? apixaban (ELIQUIS) tablet 5 mg 5 mg oral BID ??? magnesium oxide (MAG-OX) tablet 400 mg 400 mg oral BID ??? metoprolol XL (TOPROL-XL) extended release tablet 25 mg 25 mg oral BID LABS: Recent Labs Lab Units 10/01/18 0425 WBC K/cumm 8.4 HEMOGLOBIN g/dL 11.8* HEMATOCRIT % 35.9 PLATELETS K/cumm 180 Recent Labs Lab Units 09/29/18 2308 SODIUM mmol/L 141 POTASSIUM PLASMA mmol/L 3.7 CHLORIDE mmol/L 103 CO2 mmol/L 25 ANIONGAP mmol/L 13 GLUCOSE mg/dL 171 BUN SERUM mg/dL 15 CREATININE mg/dL 0.75 CALCIUM mg/dL 8.8 ALBUMIN g/dL 3.6 ALK PHOS Units/L 38* ALT Units/L 22 AST Units/L 27 BILIRUBIN TOTAL mg/dL 0.2 Exam General: in no apparent distress, well developed and well nourished and in no respiratory distress and acyanotic Neuro: Alert and oriented x 3, moves all extremities well HEENT: normocephalic, atraumatic Lungs: symmetric, unlabored, clear to auscultation bilaterally Heart: S1,S2, regular rate & rhythm, no murmurs, rubs, or gallops Abdomen: soft, non-tender, non-distended, bowel sounds present Extremities: no LE edema, palpable peripheral pulses BL ASSESSMENT/PLAN: Atrial fibrillation -Apaced in 60s, maintained since yesterday afternoon -continue metoprolol -transition to PO amiodarone -continue eliquis SSS -s/p Biotronik (MRI safe) PPM ?? HTN -controlled ?? CAD -last cath 01/2014, patent stent to circ, 40% stenosis RCA treated medically -Last echo 07/29/18, LVEF 40-45%, mild LVH, mod MR, nml AV, trivial TVR -continue metoprolol Stable cardiac status. Ok for discharge. Follow up appointment with Dr. Flannery. MAXWELL [facility] 10/01/2018 8:02 AM * Summer Guevara MSW - 09/30/2018 3:16 PM CDT 09/30/18 1516 Enrollment Program Offered Transition to Wellness;Declined Declined Reasons Declined enrollment SS consult received for Op Case Management for Transition to Wellness. BUTTON ATTACHING MACHINE OPERATOR entered patient's room to introduce herself and [facility] program. BUTTON ATTACHING MACHINE OPERATOR explained the program to patient and patient declined. Patient stated that someone currently calls her weekly to check on her and that she does not need any extra assistance. BUTTON ATTACHING MACHINE OPERATOR informed Jeanette that patient declined as well as [facility] GRINDER SET UP OPERATOR EXTERNAL. [facility] will not be enrolling this patient. * Christa Suazo MD - 09/30/2018 1:31 PM CDT General Medicine Daily Progress Days in hospital: 1 SUBJECTIVE: Chief complaint of rapid heart rate. Hospital Course: This is a very pleasant 78-year-old white female who was admitted directly from cardiology saw office secondary to atrial fibrillation with RVR. The patient was having her pacemaker evaluated and was found to be in AFib with RVR. She admits to feeling on for the past week. The patient notes that she has been nauseated for about 1 hour after he eats for the past week. She does note that 2 days after she started to feel this way she stops taking her new proton pump inhibitor and had switch back to Prevacid, but the nausea has remained Interval History: Patient denies any chest pain today. He does not feel like her heart is racing anymore. She does still feel nauseated up to 1 hour after she eats OBJECTIVE: Vitals: 24hr Min/Max: Temp Min: 36.8 ??C (98.2 ??F) Max: 37.2 ??C (99 ??F) Pulse Min: 45 Max: 142 BP Min: 101/77 Max: 137/104 Resp Min: 18 Max: 20 SpO2 Min: 96 % Max: 99 % Most Recent : Vitals: 09/30/18 0700 09/30/18 0810 09/30/18 1100 09/30/18 1230 BP: 101/77 121/98 BP Location: Left arm Left arm Patient Position: Pulse: 61 103 90 62 Resp: 18 18 Temp: 37 ??C (98.6 ??F) 36.9 ??C (98.5 ??F) TempSrc: Oral Oral SpO2: 97% 99% Weight: Height: No intake/output data recorded. I/O this shift: In: 240 [P.O.:240] Out: 200 [Urine:200] LDA: Peripheral IV 09/29/18 22 G Right Antecubital (Active) Placement Date/Time: 09/29/18 481 Type: Angiocath Size (Gauge): 22 G Location Orientation: Right Location: Antecubital Insertion attempts: 1 Patient Tolerance: Tolerated well Number of days: 0 Physical Exam: Constitutional: Patient is oriented to person, place, and time. They appear well-developed. HENT: Head: Normocephalic and atraumatic. Nose: Nose normal. Mouth/Throat: Oropharynx is clear and moist. Eyes: Conjunctivae and EOM are normal. Pupils are equal, round, and reactive to light. Neck: Normal range of motion. Neck supple. No tracheal deviation present. No thyromegaly present. Cardiovascular: Irregular irregular, but no longer rapid Pulmonary/Chest: Effort normal and breath sounds normal. No respiratory distress. No wheezes. No rales. Abdominal: Soft. Bowel sounds are normal. No distension. There is no tenderness. Musculoskeletal: Normal range of motion. They exhibit no edema, tenderness or deformity. Neurological: Patient is alert and oriented to person, place, and time. Patient displays normal reflexes. No cranial nerve deficit. Skin: Skin is warm and dry. No rash noted. Psychiatric: Normal mood and affect. Behavior is normal. Lab/Radiology/Diagnostic Review: Recent Results (from the past 24 hour(s)) Magnesium Collection Time: 09/29/18 5:59 PM Result Value Ref Range Magnesium 1.7 1.4 - 2.5 mg/dL Creatinine Collection Time: 09/29/18 5:59 PM Result Value Ref Range Creatinine 0.77 0.60 - 1.10 mg/dL Pro B-type natriuretic peptide Collection Time: 09/29/18 5:59 PM Result Value Ref Range NT-proBNP 3,947 (H) <=450 pg/mL eGFR Collection Time: 09/29/18 5:59 PM Result Value Ref Range GFR 74 mL/min/1.73 m2 CBC without differential Collection Time: 09/29/18 6:12 PM Result Value Ref Range WBC 7.4 3.8 - 9.9 K/cumm Hgb 13.3 11.9 - 15.5 g/dL Hct 40.6 35.6 - 45.5 % Plt 227 150 - 400 K/cumm MPV 11.0 9.1 - 12.3 fL RBC 4.23 3.90 - 5.20 M/cumm MCV 96.0 81.3 - 96.4 fL MCH 31.4 27.1 - 33.3 pg MCHC 32.8 32.3 - 35.7 g/dL RDW CV 12.7 11.1 - 14.9 % RDW SD 44.9 35.7 - 48.1 fL NRBC Abs 0.00 0.00 - 0.01 K/cumm Protime-INR Collection Time: 09/29/18 6:12 PM Result Value Ref Range PT 16.2 (H) 9.5 - 13.0 sec INR 1.43 (H) 0.90 - 1.20 aPTT Collection Time: 09/29/18 6:12 PM Result Value Ref Range aPTT 32.4 25.0 - 37.0 sec Creatinine Collection Time: 09/29/18 6:12 PM Result Value Ref Range Creatinine 0.69 0.60 - 1.10 mg/dL eGFR Collection Time: 09/29/18 6:12 PM Result Value Ref Range GFR 83 mL/min/1.73 m2 CBC without differential Collection Time: 09/29/18 11:08 PM Result Value Ref Range WBC 8.5 3.8 - 9.9 K/cumm Hgb 12.3 11.9 - 15.5 g/dL Hct 36.6 35.6 - 45.5 % Plt 200 150 - 400 K/cumm MPV 10.9 9.1 - 12.3 fL RBC 3.90 3.90 - 5.20 M/cumm MCV 93.8 81.3 - 96.4 fL MCH 31.5 27.1 - 33.3 pg MCHC 33.6 32.3 - 35.7 g/dL RDW CV 12.7 11.1 - 14.9 % RDW SD 43.5 35.7 - 48.1 fL NRBC Abs 0.00 0.00 - 0.01 K/cumm Comprehensive metabolic panel Collection Time: 09/29/18 11:08 PM Result Value Ref Range Sodium 141 135 - 145 mmol/L Potassium, pl 3.7 3.3 - 4.9 mmol/L Chloride 103 97 - 110 mmol/L CO2 25 22 - 32 mmol/L Anion Gap 13 2 - 15 mmol/L BUN 15 8 - 25 mg/dL Creatinine 0.75 0.60 - 1.10 mg/dL Glucose 171 70 - 199 mg/dL Calcium 8.8 8.5 - 10.3 mg/dL Bilirubin, total 0.2 0.1 - 1.2 mg/dL Protein, pl 6.4 (L) 6.5 - 8.5 g/dL Albumin 3.6 3.5 - 5.0 g/dL Alk phos 38 (L) 40 - 130 Units/L ALT 22 7 - 45 Units/L AST 27 10 - 45 Units/L Troponin T 5th Gen series (Baseline, 3hr, 6hr) Collection Time: 09/29/18 11:08 PM Result Value Ref Range Troponin T, Baseline 5th Gen 41 (H) 6 - 14 ng/L Magnesium Collection Time: 09/29/18 11:08 PM Result Value Ref Range Magnesium 1.8 1.4 - 2.5 mg/dL Phosphorus Collection Time: 09/29/18 11:08 PM Result Value Ref Range Phosphorus, pl 3.5 2.3 - 4.5 mg/dL eGFR Collection Time: 09/29/18 11:08 PM Result Value Ref Range GFR 76 mL/min/1.73 m2 Troponin T, 3 Hour 5th Gen Collection Time: 09/30/18 3:44 AM Result Value Ref Range Troponin T, 3 Hr 5th Gen 44 (H) 6 - 14 ng/L Troponin T, 3 Hr Delta 3 ng/L Troponin T, 6 Hour 5th Gen Collection Time: 09/30/18 6:36 AM Result Value Ref Range Troponin T, 6 Hr 5th Gen 44 (H) 6 - 14 ng/L Troponin T, 6 Hr Delta 3 ng/L CBC with auto differential Collection Time: 09/30/18 11:08 AM Result Value Ref Range WBC 8.8 3.8 - 9.9 K/cumm Hgb 13.4 11.9 - 15.5 g/dL Hct 42.5 35.6 - 45.5 % Plt 197 150 - 400 K/cumm MPV 11.2 9.1 - 12.3 fL RBC 4.39 3.90 - 5.20 M/cumm MCV 96.8 (H) 81.3 - 96.4 fL MCH 30.5 27.1 - 33.3 pg MCHC 31.5 (L) 32.3 - 35.7 g/dL RDW CV 12.6 11.1 - 14.9 % RDW SD 44.9 35.7 - 48.1 fL NRBC Abs 0.00 0.00 - 0.01 K/cumm Differential, auto Collection Time: 09/30/18 11:08 AM Result Value Ref Range Neutrophil absolute 5.2 1.7 - 6.5 K/cumm Immature granulocyte absolute 0.0 0.0 - 0.1 K/cumm Lymphocytes absolute 2.6 0.8 - 3.3 K/cumm Monocyte absolute 0.8 0.2 - 0.8 K/cumm Eosinophils absolute 0.1 0.0 - 0.5 K/cumm Basophils, abs 0.1 0.0 - 0.1 K/cumm Neutrophils 59.6 % Immature granulocytes 0.3 % Lymphocytes 29.3 % Monocytes 8.7 % Eosinophils 1.4 % Basophils 0.7 % Xr Chest Pa Lateral 2 Views Result Date: 09/30/2018 Narrative: RESULT: HISTORY: Chest pain EXAMINATION: XR CHEST PA LATERAL 2 VIEWS ORDER DATE: 09/30/2018 8:35 AM FINDINGS: There are small scattered parenchymal and perihilar granulomatous calcifications. The cardiac and mediastinal outlines are unremarkable. There are no pleural effusions or infiltrates. No significant abnormalities are noted in the spine or remainder of the bony thorax. Cardiac pacemaker on the left. Impression: NO ACUTE PULMONARY CHANGE. Electronically signed by: Baljit Fernández M.D. Xr Chest Pa Lateral 2 View Result Date: 09/15/2018 Narrative: RESULT: HISTORY: The patient is a 78-year-old female who is at placement of a pacemaker.Comparison made with the previous study dated 09/14/2018. TECHNIQUE: PA and lateral view of the chest. FINDINGS: Lungs clear. Heart not enlarged. Aortic atherosclerosis. No failure. Left-sided transvenous pacemaker noted with electrode tips in good position. No pneumothorax. Impression: No active disease. Electronically signed by: Jaswinder Lira M.D. Xr Chest Pa Lateral 2 Views Result Date: 09/10/2018 Narrative: RESULT: EXAMINATION: PA AND LATERAL CHEST RADIOGRAPHS Date: 09/10/2018 1:00 PM History: Cardiac pacemaker, atrial fibrillation, essential hypertension Comparison: Comparison is made to the radiographic examination dated 07/30/2018. Findings: Normal heart size. Left chest pacemaker. No pleural effusion , vascular congestion, focal consolidation, or pneumothorax. No acute osseous abnormality. Impression: No acute cardiopulmonary finding. Electronically signed by: Gordy Childress M.D. X-ray Chest 1 View Result Date: 09/14/2018 Narrative: RESULT: EXAMINATION: Portable chest Date: 09/14/2018 12:05 PM History: Cardiac pacemaker,atrial fibrillation, essential hypertension Comparison: Comparison is made to the radiographic examination dated 09/10/2018 Findings: Normal heart size. Left chest pacemaker. No pleural effusion , vascular congestion, focal consolidation, or pneumothorax. No acute osseous abnormality. Impression: No acute cardiopulmonary finding. Electronically signed by: Baljit Fernández M.D. Implantable Cardiac Device Result Date: 09/14/2018 Narrative: IMPLANT ATRIAL PPM SYTEM WITH ATRIAL ELECTRODE (GEN AND LEAD, NEW OR REPLACE) 86310 - LEAD REVISION ONLY And removal of old atrial lead. ?? Op Note ?? Attending Server Developer: Reynaldo Flannery, DO Primary: Reynaldo Flannery, DO ?? Server Developer Assistants: none ?? CV Documenter: Jennie Niño RN CV Nurse: Renita Leiva RN CV Scrub: Yessy Kim CV Hair Preparer: Brielle Parker RN ?? Date of Procedure: 09/14/2018 ?? Specimens: No specimen collected inprocedure ?? Preoperative Diagnosis: atrial lead malfunction, SSS, PAF, tachybrady Postoperative Diagnosis: same ?? Name of Procedure: Procedure(s): IMPLANT ATRIAL PPM SYTEM WITH ATRIAL ELECTRODE (GEN AND LEAD, NEW OR REPLACE) 87550 - LEAD REVISION ONLY with removal of old atrial lead and insertion of new atrial lead ?? Findings: Local 1% lido. Pacer pocket opened [...] Implant Name Type Inv. Item Serial No. Reserve Officer Lot No. Technical data No. Used [employer] [id number] SOLIA S 45CM BIPOLAR ACTIVE FIXATION LEAD PACING STEROID ELUTING - [id number] - [id number] Lead [employer] [id number] Solia S 45cm Bipolar Active Fixation Lead Pacing Steroid Eluting [id number] [employer] [id number] p wave 1.0mV Threshold 1.1 V Impedance 510 ohms 1 MEDTRONIC CARDIAC RHYTHM MGMT [id number] TYRX 2.7X2.5IN MEDIUM ENVELOPE ABSORBABLE POLYARYLATE MINOCYCLINE - [id number] ?? MEDTRONIC CARDIAC RHYTHM MGMT [id number] TYRX 2.7X2.5IN MEDIUM ENVELOPE ABSORBABLE POLYARYLATE MINOCYCLINE ?? [employer] [id number] N/A 1 ? Complications: None ?? Condition on Discharge from the operating room was stable ?? Reynaldo Flannery, DO ?? Date: 09/14/2018 Time: 11:46 AM ?? Assessment/Plan All assessments present on admission unless otherwise specified Principal Problem: Atrial fibrillation with rapid ventricular response (CMS/HCC) Active Problems: Chest pain Chronic CHF (CMS/HCC) Hypertensive urgency GENNY (obstructive sleep apnea) Anxiety :} A. Fib w/ RVR - S/p pacemaker. On amio gtt. Cardiology consulted. Continue eliquis 5 mg BID. Check Mg and Phos. Telemetry monitoring. Cardiology has seen in anticipate electric cardioversion tomorrow. Will continue on amiodarone :} Abdominal pain with nausea-patient notes that this lasts for approximately 1 hour after she eatsand has been going on for the past week. She notes that she did recently stop taking her PPI because it was not agreeing with her. She is back on Prevacid which she has been taking for a long time. Will start the patient on Maalox to see if this helps, if not will schedule the patient with GI as anoutpatient to possibly get an endoscopy :}Chest pain - Hx of CAD. May be musculoskeletal vs related to A. Fib w/ RVR. F/u EKG. Check troponins. :}. Chronic CHF - NT-proBNP 3947. CXR ordered. Last echo in July 2018 showed EF 40-45%. :}. Hypertension - Uncontrolled. Continue Toprol XL 25 mg BID. Continue to monitor pressures for now as HR improves on amio gtt. :}. GENNY - No CPAP at night. :}. Anxiety - Continue xanax 0.25 mg BID prn ?? Prior DVT Proph: Eliquis ESTIMATED LENGTH OF STAY: >2 midnights Voice recognition software was used to complete this document. [employer] Person variances may occur. Despite proofreading, typographical errors may occur. Christa Suazo MD 09/30/2018 1:32 PM documented in this encounter H&P Notes * Kathryn Stauffer, - 09/29/2018 9:56 PM CDT History and Physical Date of Service: 09/29/2018 Primary Care Physician: Ronald Castrejon MD [phone] SUBJECTIVE: Patient is a 78 y.o. female with a PMHx significant for paroxysmal A. Fib on chronic anti-coagulation, obesity, h/o aortic aneurysm, CAD, depression, GERD, HTN, GENNY, vertigo, hyperlipidemia, CHF, s/ppacemaker . Presents as a direct admit from Dr. Flannery's office for evaluation of A. Fib w/ RVR. HPI: Patient states that for the past 6 days, she has been feeling short of breath, nauseated, and dizzy. She has also felt like her heart has been racing . She had a checkup today for her pacemaker, andstates that she was found to be in A. Fib w/ RVR. She was then directly admitted to [facility] for further management. Her HR was initially in the 160's, and she was given an amio bolus. Her HR improved to 130s, then she was started on an amio gtt. She does c/o R-sided chest pain, but states that it is exacerbated when she presses on that area. Past Medical History: Diagnosis Date ??? Adiposity [...] Medication Sig Dispense Refill Last Dose ??? ALPRAZolam (XANAX) 0.25 mg tablet Take 1 tablet (0.25 mg total) by mouth 2 (two) times a day asneeded for anxiety 60 tablet 1 Past Week at Unknown time ??? apixaban (ELIQUIS) 5 mg tablet take 1 tablet by oral route 2 times every day 0 0 09/29/2018 at Unknown time ??? artificial tears (SYSTANE) 0.3 % gel Apply 1 drop to both eyes 4 (four) times a day as needed More than a month at Unknown time ??? ascorbic acid (vitamin C) 1,000 mg tablet Take 2,000 mg by mouth daily 09/29/2018 at Unknown time ??? cholecalciferol (VITAMIN D-3) 2,000 unit tablet take 1 tablet by oral route every day 90 3 09/28/2018 at Unknown time ??? cyanocobalamin (Vitamin B-12) 100 mcg tablet Take 100 mcg by mouth daily. 09/28/2018 at Unknown time ??? digestive enzymes tablet Take by mouth daily 09/28/2018 at Unknown time ??? fluticasone propionate (FLONASE) 50 mcg/actuation nasal spray Administer 2 sprays into each nostril daily (Patient taking differently: Administer 1 spray into each nostril daily as needed Uses daily as needed for allergies) 16 g 11 Past Month at Unknown time ??? loratadine (CLARITIN) 10 mg tablet Take 10 mg by mouth daily as needed Past Week at Unknown time ??? MAGNESIUM ORAL Take 2 capsules by mouth daily Past Week at Unknown time ??? metoprolol XL (TOPROL-XL) 25 mg 24 hr tablet Take 25 mg by mouth 2 (two) times a day 4 09/29/2018at Unknown time ??? mupirocin (BACTROBAN) 2 % nasal ointment Apply 1 application to each nostril 2 (two) times a day Use one-half of tube in each nostril twice daily for five (5) days. After application, press sidesof nose together and gently massage. More than a month at Unknown time Allergies Allergen Reactions ??? Phenobarbital Hallucinations ??? [...] Last attempt to quit: 1975 Years since quittin.5 ??? Smokeless tobacco: Never Used Substance Use [...] Depression Brother Depression; ??? Hypertension Brother Hypertension; Review of Systems: Review of Systems Constitutional: Negative for chills and fever. HENT: Negative for congestion and sore throat. Eyes: Negative for visual disturbance. Respiratory: Positive for shortness of breath. Cardiovascular: Positive for chest pain and palpitations. Negative for leg swelling. Gastrointestinal: Positive for nausea. Negative for abdominal pain and vomiting. Genitourinary: Negative for dysuria. Musculoskeletal: Negative for myalgias. Skin: Negative for wound. Neurological: Positive for dizziness and light-headedness. Negative for headaches. Psychiatric/Behavioral: Negative for confusion. OBJECTIVE: Vitals: Arrival Vitals [09/29/18 1700] Temp 36.8 ??C (98.3 ??F) Pulse (!) 45 Resp 20 BP (!) 137/104 SpO2 96 % Temp src Oral Heart Rate Source Patient Position Sitting BP Location Left arm FiO2 (%) Most Recent : Vitals: 09/29/18 1700 09/29/18 1854 09/29/181999 BP: (!) 137/104 (!) 133/103 BP Location: Left arm Left arm Patient Position: Sitting Lying Pulse: (!) 45 (!) 142 Resp: 20 20 Temp: 36.8 ??C (98.3 ??F) 36.8 ??C (98.2 ??F) TempSrc: Oral Oral SpO2: 96% 96% Weight: 74.4 kg (164 lb 0.4 oz) Height: 154.9 cm (5' 1 ) No intake/output data recorded. No intake/output data recorded. Physical Exam: Physical Exam Constitutional: She is oriented to person, place, and time. No distress. HENT: Head: Normocephalic and atraumatic. Nose: Nose normal. Eyes: EOM are normal. Neck: Neck supple. Cardiovascular: A. Fib w/ RVR Pulmonary/Chest: Effort normal and breath sounds normal. Abdominal: Soft. She exhibits no distension. There is no tenderness. Musculoskeletal: She exhibits no edema. Neurological: She is alert and oriented to person, place, and time. Skin: Skin is warm and dry. Psychiatric: She has a normal mood and affect. Lab/Radiology/Diagnostic Review: Recent Results (from the past 24 hour(s)) Magnesium Collection Time: 09/29/18 5:59 PM Result Value Ref Range Magnesium 1.7 1.4 - 2.5 mg/dL Creatinine Collection Time: 09/29/18 5:59 PM Result Value Ref Range Creatinine 0.77 0.60 - 1.10 mg/dL Pro B-type natriuretic peptide Collection Time: 09/29/18 5:59 PM Result Value Ref Range NT-proBNP 3,947 (H) <=450 pg/mL eGFR Collection Time: 09/29/18 5:59 PM Result Value Ref Range GFR 74 mL/min/1.73 m2 CBC without differential Collection Time: 09/29/18 6:12 PM Result Value Ref Range WBC 7.4 3.8 - 9.9 K/cumm Hgb 13.3 11.9 - 15.5 g/dL Hct 40.6 35.6 - 45.5 % Plt 227 150 - 400 K/cumm MPV 11.0 9.1 - 12.3 fL RBC 4.23 3.90 - 5.20 M/cumm MCV 96.0 81.3 - 96.4 fL MCH 31.4 27.1 - 33.3 pg MCHC 32.8 32.3 - 35.7 g/dL RDW CV 12.7 11.1 - 14.9 % RDW SD 44.9 35.7 - 48.1 fL NRBC Abs 0.00 0.00 - 0.01 K/cumm Protime-INR Collection Time: 09/29/18 6:12 PM Result Value Ref Range PT 16.2 (H) 9.5 - 13.0 sec INR 1.43 (H) 0.90 - 1.20 aPTT Collection Time: 09/29/18 6:12 PM Result Value Ref Range aPTT 32.4 25.0 - 37.0 sec Creatinine Collection Time: 09/29/18 6:12 PM Result Value Ref Range Creatinine 0.69 0.60 - 1.10 mg/dL eGFR Collection Time: 09/29/18 6:12 PM Result Value Ref Range GFR 83 mL/min/1.73 m2 Xr Chest Pa Lateral 2 View Result Date: 09/15/2018 Narrative: RESULT: HISTORY: The patient is a 78-year-old female who is at placement of a pacemaker.Comparison made with the previous study dated 09/14/2018. TECHNIQUE: PA and lateral view of the chest. FINDINGS: Lungs clear. Heart not enlarged. Aortic atherosclerosis. No failure. Left-sided transvenous pacemaker noted with electrode tips in good position. No pneumothorax. Impression: No active disease. Electronically signed by: Jaswinder Lira M.D. Xr Chest Pa Lateral 2 Views Result Date: 09/10/2018 Narrative: RESULT: EXAMINATION: PA AND LATERAL CHEST RADIOGRAPHS Date: 09/10/2018 1:00 PM History: Cardiac pacemaker, atrial fibrillation, essential hypertension Comparison: Comparison is made to the radiographic examination dated 07/30/2018. Findings: Normal heart size. Left chest pacemaker. No pleural effusion , vascular congestion, focal consolidation, or pneumothorax. No acute osseous abnormality. Impression: No acute cardiopulmonary finding. Electronically signed by: Gordy Childress M.D. X-ray Chest 1 View Result Date: 09/14/2018 Narrative: RESULT: EXAMINATION: Portable chest Date: 09/14/2018 12:05 PM History: Cardiac pacemaker,atrial fibrillation, essential hypertension Comparison: Comparison is made to the radiographic examination dated 09/10/2018 Findings: Normal heart size. Left chest pacemaker. No pleural effusion , vascular congestion, focal consolidation, or pneumothorax. No acute osseous abnormality. Impression: No acute cardiopulmonary finding. Electronically signed by: Baljit Fernández M.D. Implantable Cardiac Device Result Date: 09/14/2018 Narrative: IMPLANT ATRIAL PPM SYTEM WITH ATRIAL ELECTRODE (GEN AND LEAD, NEW OR REPLACE) 68516 - LEAD REVISION ONLY And removal of old atrial lead. ?? Op Note ?? Attending Server Developer: Reynaldo Flannery, DO Primary: Reynaldo Flannery, DO ?? Server Developer Assistants: none ?? CV Documenter: Jennie Niño RN CV Nurse: Renita Leiva RN CV Scrub: Yessy Kim CV Hair Preparer: Brielle Parker RN ?? Date of Procedure: 09/14/2018 ?? Specimens: No specimen collected inprocedure ?? Preoperative Diagnosis: atrial lead malfunction, SSS, PAF, tachybrady Postoperative Diagnosis: same ?? Name of Procedure: Procedure(s): IMPLANT ATRIAL PPM SYTEM WITH ATRIAL ELECTRODE (GEN AND LEAD, NEW OR REPLACE) 87212 - LEAD REVISION ONLY with removal of old atrial lead and insertionof new atrial lead ?? Findings: Local 1% lido. Pacer pocket opened with sharp and blunt dissection.Pacer and leads freed from fibrous adhesions and removed from pocket. L axillary vein x 1. Old atrial lead tested with threshold 5 V. This lead was removed. New A lead placed in RAA with good sensingand pacing thresholds. Connected to pacer PG. Pocket irrigated with Abx lavage and inserted into pocket. Pocket closed with 3 layers of suture. ?? Estimated Blood Loss: 30 cc's ?? Intra-Procedural Fluids: See anesthesia notes ?? Blood/Blood Products Transfused: none ?? Implants: Implant Name Type Inv. Item Serial No. Reserve Officer Lot No. Technical data No. Used [employer] [id number] SOLIA S 45CM BIPOLAR ACTIVE FIXATION LEAD PACING STEROID ELUTING - [id number] - [id number] Lead [employer] 014449 Solia S 45cm Bipolar Active Fixation Lead Pacing Steroid Eluting [id number] [employer] [id number] p wave 1.0mV Threshold 1.1 V Impedance 510 ohms 1 MEDTRONIC CARDIAC RHYTHM MGMT [id number] TYRX 2.7X2.5INMEDIUM ENVELOPE ABSORBABLE POLYARYLATE MINOCYCLINE - [id number] ?? MEDTRONIC CARDIAC RHYTHM MGMT [id number] TYRX 2.7X2.5IN MEDIUM ENVELOPE ABSORBABLE POLYARYLATE MINOCYCLINE ?? [employer] [id number] N/A 1 ? Complications: None ?? Condition on Discharge from the operating room was stable ?? Gigi Flannery DO ?? Date: 09/14/2018 Time: 11:46 AM ?? ASSESSMENT/PLAN: Principal Problem: Atrial fibrillation with rapid ventricular response (CMS/HCC) Active Problems: Chest pain Chronic CHF (CMS/HCC) Hypertensive urgency GENNY (obstructive sleep apnea) Anxiety 1. A. Fib w/ RVR - S/p pacemaker. On amio gtt. Cardiology consulted. Continue eliquis 5 mg BID. Check Mg and Phos. Telemetry monitoring. 2. Chest pain - Hx of CAD. May be musculoskeletal vs related to A. Fib w/ RVR. F/u EKG. Check troponins. 3. Chronic CHF - NT-proBNP 3947. CXR ordered. Last echo in July 2018 showed EF 40-45%. 4. Hypertension - Uncontrolled. Continue Toprol XL 25 mg BID. Continue to monitor pressures for nowas HR improves on amio gtt. 5. GENNY - No CPAP at night. 6. Anxiety - Continue xanax 0.25 mg BID prn Prior DVT Proph: Kareem ESTIMATED LENGTH OF STAY: >2 midnights Kathryn Stauffer DO 09/29/2018 10:19 PM documented in this encounter Consult Notes * Prabhu Ribeiro NP - 09/30/2018 8:28 AM CDTAssociated Order(s): IP CONSULT TO CARDIOLOGY Electrophysiology Consult- [facility] Patient's Primary Care Physician: Ronald Castrejon MD Name: Abena Giron Age: 78 y.o. Race: Sex: female Chief Complaint/History of Present Illness Ms. Giron is a 78 year old white female with a past medical history of Afib, SSS s/p Biotronik (MRI safe) ppm, HTN, CAD (cath 01/2014), and HLD. She had a device check on 09/28/18 that showed she hasbeen in Afib since 09/23/18. She was directly admitted to the floor for further management. At home she admits episodes of nausea, dizziness, and lightheadedness. She denies chest pain, syncope, fever or chills. Episodes likely r/t high heart rate. Upon arrival she was found to be in Afib with RVR, HR 160-170. She was given an amiodarone bolus and gtt. This morning patient feels well, asymptomatic,with HR in 110s. Past Medical History: Diagnosis Date ??? Adiposity [...] Social Needs ??? Financial resource strain: Not on file ??? Food insecurity: Worry: Not on file Inability: Not on file ??? Transportation needs: Medical: Not on file Non-medical: Not on file Tobacco Use ??? Smoking status: Former Smoker Last attempt to quit: 1975 Years since quittin.5 ??? Smokeless tobacco: Never Used Substance and Sexual Activity ??? Alcohol use: No ??? Drug use: No ??? Sexual activity: Defer Lifestyle ??? Physical activity: Days per week: Not on file Minutes per session: Not on file ??? Stress: Not on file Relationships ??? Social connections: Talks on phone: Not on file Gets together: Not on file Attends pres[employer]beterian service: Not on file Active member of club or organization: Not on file Attends meetings of clubs or organizations: Not on file Relationship status: Not on file ??? Intimate partner violence: Fear of current or ex partner: Not on file Emotionally abused: Not on file Physically abused: Not on file Forced sexual activity: Not on file Other Topics Concern ??? Not on file Social History Narrative Agrees to blood/blood products: Y Agrees to blood/blood products: Y Medications Prior to Admission Medication Sig Dispense Refill Last Dose ??? ALPRAZolam (XANAX) 0.25 mg tablet Take 1 tablet (0.25 mg total) by mouth 2 (two) times a day asneeded for anxiety 60 tablet 1 Past Week at Unknown time ??? apixaban (ELIQUIS) 5 mg tablet take 1 tablet by oral route 2 times every day 0 0 09/29/2018 at Unknown time ??? artificial tears (SYSTANE) 0.3 % gel Apply 1 drop to both eyes 4 (four) times a day as needed More than a month at Unknown time ??? ascorbic acid (vitamin C) 1,000 mg tablet Take 2,000 mg by mouth daily 09/29/2018 at Unknown time ??? cholecalciferol (VITAMIN D-3) 2,000 unit tablet take 1 tablet by oral route every day 90 3 09/28/2018 at Unknown time ??? cyanocobalamin (Vitamin B-12) 100 mcg tablet Take 100 mcg by mouth daily. 09/28/2018 at Unknown time ??? digestive enzymes tablet Take by mouth daily 09/28/2018 at Unknown time ??? fluticasone propionate (FLONASE) 50 mcg/actuation nasal spray Administer 2 sprays into each nostril daily (Patient taking differently: Administer 1 spray into each nostril daily as needed Uses daily as needed for allergies) 16 g 11 Past Month at Unknown time ??? loratadine (CLARITIN) 10 mg tablet Take 10 mg by mouth daily as needed Past Week at Unknown time ??? MAGNESIUM ORAL Take 2 capsules by mouth daily Past Week at Unknown time ??? metoprolol XL (TOPROL-XL) 25 mg 24 hr tablet Take 25 mg by mouth 2 (two) times a day 4 09/29/2018at Unknown time ??? mupirocin (BACTROBAN) 2 % nasal ointment Apply 1 application to each nostril 2 (two) times a day Use one-half of tube in each nostril twice daily for five (5) days. After application, press sidesof nose together and gently massage. More than a month at Unknown time Allergies Allergen Reactions ??? Phenobarbital Hallucinations ??? [...] comments) severe heart pain ??? Diltiazem Itching MEDICATIONS FOR CURRENT ENCOUNTER: SCHEDULED MEDICATIONS: Scheduled Medications Medication Dose Route Frequency ??? apixaban (ELIQUIS) tablet 5 mg 5 mg oral BID ??? magnesium oxide (MAG-OX) tablet 400 mg 400 mg oral BID ??? metoprolol XL (TOPROL-XL) extended release tablet 25 mg 25 mg oral BID ?? CONTINUOUS MEDICATIONS: Continuous Medications Medication Dose Last Rate ??? amiodarone in dextrose (NEXTERONE) 360 mg/200 mL (1.8 mg/mL) infusion (premix) 1 mg/min 1 mg/min (09/30/18 0545) ?? PRN MEDICATIONS: PRN Medications Medication Dose Route Frequency Last Dose ??? acetaminophen (TYLENOL) tablet 650 mg 650 mg oral Q4H PRN ??? ALPRAZolam (XANAX) tablet 0.25 mg 0.25 mg oral BID PRN ??? loratadine (CLARITIN) tablet 10 mg 10 mg oral Daily PRN ??? prochlorperazine (COMPAZINE) injection 5 mg 5 mg intravenous Q6H PRN ?? Review of Systems 11 system review was obtained all pertinent positives and negatives have been listed in the HPI. Data Recent Labs Lab Units 09/29/18230709/29/18181109/29/18 1759 SODIUM mmol/L 141 -- -- POTASSIUM PLASMA mmol/L 3.7 -- -- CHLORIDE mmol/L 103 -- -- CO2 mmol/L 25 -- -- ANIONGAP mmol/L 13 -- -- GLUCOSE mg/dL 171 -- -- BUN SERUM mg/dL 15 -- -- CREATININE mg/dL 0.75 0.69 0.77 CALCIUM mg/dL 8.8 -- -- ALBUMIN g/dL 3.6 -- -- ALK PHOS Units/L 38* -- -- ALT Units/L 22 -- -- AST Units/L 27 -- -- BILIRUBIN TOTAL mg/dL 0.2 -- -- Recent Labs Lab Units 09/29/182307 SODIUM mmol/L 141 POTASSIUM PLASMA mmol/L 3.7 CHLORIDE mmol/L 103 CO2 mmol/L 25 BUN SERUM mg/dL 15 CREATININE mg/dL 0.75 RLL-FYB-SMWHWAT mL/min/1.73 m2 76 GLUCOSE mg/dL 171 CALCIUM mg/dL 8.8 ALBUMIN g/dL 3.6 PHOSPHORUS PLASMA mg/dL 3.5 Recent Labs Lab Units 09/29/18 23009/29/18 181 WBC K/cumm 8.5 7.4 HEMOGLOBIN g/dL 12.3 13.3 HEMATOCRIT % 36.6 40.6 PLATELETS K/cumm 200 227 Lab Results Lab Value Date/Time TROPONINT 0.67 (Critical) 07/30/2018 0655 TROPONINT 0.74 (Critical) 07/30/2018 0000 TROPONINT 0.59 (Critical) 07/29/2018 1810 Recent Labs Lab Units 09/29/18 181 PROTIME (PT) sec 16.2* Recent Labs Lab Units 09/29/18 181 INR 1.43* Exam Patient Vitals for the past 24 hrs: BP Temp Temp src Pulse Resp SpO2 Height Weight 09/30/18 0700 101/77 37 ??C (98.6 ??F) Oral 61 18 97 % -- -- 09/30/18 0600 -- -- -- -- -- -- -- 74.4 kg (164 lb 0.4 oz) 09/30/18 0400 132/78 37.2 ??C (99 ??F) Oral 102 20 96 % -- -- 09/30/18 0000 130/80 36.8 ??C (98.2 ??F) Oral 103 20 96 % -- -- 09/29/18 2000 (!) 133/103 36.8 ??C (98.2 ??F) Oral (!) 142 20 96 % -- -- 09/29/18 1854 -- -- -- -- -- -- 154.9 cm (5' 1 ) 74.4 kg (164 lb 0.4 oz) 09/29/18 1700 (!) 137/104 36.8 ??C (98.3 ??F) Oral (!) 45 20 96 % -- -- General: in no apparent distress, well developed and well nourished and in no respiratory distress and acyanotic Neuro: Alert and oriented x 3, moves all extremities well Head: normocephalic, atraumatic Eyes: Sclera anisteric Neck: There are no carotid bruits.I do not appreciate JVD. Lungs: symmetric, unlabored, clear to auscultation bilaterally Heart: S1,S2, Irregularly irregular rate & rhythm, no murmurs, rubs, or gallops Abdomen: soft, non-tender, non-distended, bowel sounds present Extremities: no LE edema, palpable peripheral pulses BL Assessment and Plan Atrial fibrillation -rate improved with IV amiodarone -continue IV amiodarone gtt at 1mg/min -continue metoprolol -supplement K and Mg to keep >=4 and >=2 respectively -discussed with Dr. Flannery, NPO after MN, plan for cardioversion tomorrow, no need for EVELYN as patient has been on terminal manager AC with Eliquis SSS -s/p Biotronik (MRI safe) PPM HTN -controlled CAD -last cath 01/2014, patent stent to circ, 40% stenosis RCA treated medically -Last echo 07/29/18, LVEF 40-45%, mild LVH, mod MR, nml AV, trivial TVR -continue metoprolol Thank you for allowing us to participate in the care of this patient. We will continue to follow. If you have any questions, please don't hesitate to call. MAXWELL [facility] 09/30/2018 8:28 AM CC: Cosigned by Reynaldo Flannery DO at 10/07/2018 7:50 AM CDT documented in this encounter Miscellaneous Notes * Plan of Care - Lana Chaves RN - 10/01/2018 10:35 AM CDT Discharge instructions were given. All belongings were return. * Plan of Care - Lana Chaves RN - 10/01/2018 10:12 AM CDT Problem: Health Behavior: Goal: Understanding of discharge needs will improve Outcome: Progressing Problem: Cardiac: Goal: Ability to maintain an adequate cardiac output will improve Outcome: Progressing Goal: Will show no evidence of cardiac arrhythmias Outcome: Progressing Goal: Complications related to the disease process, condition or treatment will be avoided or minimized Outcome: Progressing * Plan of Care - Ofe Drew RN - 10/01/2018 4:39 AM CDT Goals: Clinical Goals for the Shift: keep safe, comfortable, stable Summary: Pt resting with complaints of gas/abd pain. MD notified. Cardioversion planned for today. Problem: Health Behavior: Goal: Understanding of discharge needs will improve Outcome: Progressing Problem: Cardiac: Goal: Ability to maintain an adequate cardiac output will improve Outcome: Progressing Goal: Will show no evidence of cardiac arrhythmias Outcome: Progressing Goal: Complications related to the disease process, condition or treatment will be avoided or minimized Outcome: Progressing * Plan of Care - Trinidad Giraldo RN - 09/30/2018 3:10 PM CDT Problem: Health Behavior: Goal: Understanding of discharge needs will improve Outcome: Progressing Problem: Cardiac: Goal: Ability to maintain an adequate cardiac output will improve Outcome: Progressing Goal: Will show no evidence of cardiac arrhythmias Outcome: Progressing Goal: Complications related to the disease process, condition or treatment will be avoided or minimized Outcome: Progressing Goals: Clinical Goals for the Shift: monitor heart rate Summary: Patient on amiodarone drip, Cardioversion ordered tomorrow. Will continue to monitor. * Plan of Care - Mara Cortes RN - 09/30/2018 11:10 AM CDT CM/SW Assessment Last Documented CM/SW Assessment (most recent) SW/CM Admission Assessment - 09/30/18 1106 Referral Data Referral Source Protective Signal Operations Supervisor Referral Reason Discharge Planning Patient Information Primary Caregiver Self Support System Children Support system contact info (name, phone, availablity) Tabatha Giron- daughter- [phone] and Kirsten Frazier- [phone], patient declined to designate a caregiver at this time Legal Information Have you reviewed your Advance Directive and is it valid for this stay? No Advance Directive Patient does not have advance directive;Patient refused information Prior Level of Functioning Durable Medical Equipment None Living Arrangement House;Lives alone Potential Discharge Needs Anticipated discharge level of care Return Home Dialysis No Psychiatric services No Additional assessment Additional comments: Assessment completed at bedside with patient . PMD- Dr Castrejon and uses [facility] in [place]. Independent and no needs. Has her own transportation. Goal is to return homeat discharge. Will continue to follow for discharge needs. Discharge Planning Type of Residence: Private residence Living Arrangements: Alone Support Systems: Children Assistance Needed: no Medication Assistance: no Home Care Services: No Patient expects to be discharged to:: Private residence Mara Cortes RN [phone] 09/30/2018 11:11 AM * Plan of Care - Mannie Madison RN - 09/29/2018 11:45 PM CDT Goals: Clinical Goals for the Shift: stable vs, decrease hr, no chest pain Summary: Upon start of shift pt HR in the 140s to 150s. Hospitalist notified and an amiodarone dripwas started. Heart rate has lowered to high 90s low 100s. Pt reports no chest pain and reports resting comfortably. Will continue to monitor. Mannie Madison RN * Plan of Care - Meghann Rowland RN - 09/29/2018 5:22 PM CDT Goals: Free from fall, pain, safety. Summary: documented in this encounter Plan of Treatment Not on file documented as of this encounter Procedures Procedure Name Priority Date/Time Associated Diagnosis Comments CBC WITHOUT DIFFERENTIAL Routine 10/01/2018 4:25 AM CDT DIFFERENTIAL AUTO Routine 09/30/2018 11: 08 AM CDT CBC WITH AUTO DIFFERENTIAL Routine 09/30/2018 11:08 AM CDT XR CHEST PA LATERAL 2 VIEWS IP Routine 09/30/2018 8:35 AM CDT TROPONIN T, 6 HOUR 5TH GEN Timed 09/30/2018 6:36 AM CDT TROPONIN T, 3 HOUR 5TH GEN Timed 09/30/2018 3:44 AM CDT TROPONIN T 5TH GEN SERIES (BASELINE, 3HR, 6HR) Routine 09/29/2018 11:08 PM CDT EGFR Routine 09/29/2018 11:08 PM CDT CBC WITHOUT DIFFERENTIAL Routine 09/29/2018 11:08 PM CDT PHOSPHORUS Routine 09/29/2018 11:08 PM CDT MAGNESIUM Routine 09/29/2018 11:08 PM CDT COMPREHENSIVE METABOLIC PANEL Routine 09/29/2018 11:08 PM CDT EGFR STAT 09/29/2018 6:12 PM CDT APTT STAT 09/29/2018 6:12 PM CDT PROTIME-INR STAT 09/29/2018 6:12 PM CDT CBC WITHOUT DIFFERENTIAL STAT 09/29/2018 6:12 PM CDT CREATININE STAT 09/29/2018 6:12 PM CDT EGFR STAT 09/29/2018 5:59 PM CDT PRO B-TYPE NATRIURETIC PEPTIDE STAT 09/29/2018 5:59 PM CDT MAGNESIUM STAT 09/29/2018 5:59 PM CDT CREATININE STAT 09/29/2018 5:59 PM CDT ECG 12-LEAD STAT 09/29/2018 5:33 PM CDT documented in this encounter Results * (ABNORMAL) CBC without differential (10/01/2018 4:25 AM CDT) WBC 8.4 3.8 - 9.9 K/cumm [facility] Hgb 11.8(L) 11.9 - 15.5 g/dL [facility] Hct 35.9 35.6 - 45.5 % [facility] Plt 180 150 - 400 K/cumm [facility] MPV 10.9 9.1 - 12.3 fL [facility] RBC 3.80(L) 3.90 - 5.20 M/cumm [facility] CH MCV 94.5 81.3 - 96.4 fL [facility] MCH 31.1 27.1 - 33.3 pg [facility] MCHC 32.9 32.3 - 35.7 g/dL [facility] RDW CV 12.9 11.1 - 14.9 % [facility] RDW SD 44.2 35.7 - 48.1 fL [facility] NRBC abs 0.00 0.00 - 0.01 K/cumm [facility] Blood specimen (specimen) 10/01/2018 4:25 AM CDT 10/01/2018 4:39 AM CDT Narrative [facility] - 10/01/2018 4:47 AM CDT while on apixaban. Macarena Vaughan GRINDER SET UP OPERATOR EXTERNAL LAB BLOOD ORDERABLES Final Result [facility] [id number] [place] [address] * Differential, auto (09/30/2018 11:08 AM CDT) Neutrophil abs 5.2 1.7 - 6.5 K/cumm [facility] Imm gran abs 0.0 0.0 - 0.1 K/cumm [facility] Lymphocyte abs 2.6 0.8 - 3.3 K/cumm [facility] Monocyte abs 0.8 0.2 - 0.8 K/cumm [facility] Eosinophil abs 0.1 0.0 - 0.5 K/cumm [facility] Basophil abs 0.1 0.0 - 0.1 K/cumm [facility] Neutrophil pct 59.6 % [facility] Comment: Interpretive Data Percent cell count reference ranges are not reported, since discordance with absolute values may lead to misinterpretation of CBC data. Current Interpretive Data was last revised on 2017. Imm gran pct 0.3 % [facility] Comment: Interpretive Data Percent cell count reference ranges are not reported, since discordance with absolute values may lead to misinterpretation of CBC data. Current Interpretive Data was last revised on 2017. Lymphocyte pct 29.3 % [facility] Comment: Interpretive Data Percent cell count reference ranges are not reported, since discordance with absolute values may lead to misinterpretation of CBC data. Current Interpretive Data was last revised on 2017. Monocyte pct 8.7 % [facility] Comment: Interpretive Data Percent cell count reference ranges are not reported, since discordance with absolute values may lead to misinterpretation of CBC data. Current Interpretive Data was last revised on 2017. Eosinophil pct 1.4 % [facility] Comment: Interpretive Data Percent cell [...] last revised on 2017. Blood specimen (specimen) 09/30/2018 11:08 AM CDT 09/30/2018 11:20 AM CDT Prabhu Ribeiro NP LAB BLOOD ORDERABLES Final Result [facility] [id number] [place] [address] * (ABNORMAL) CBC with auto differential (09/30/2018 11:08 AM CDT) WBC 8.8 3.8 - 9.9 K/cumm [facility] Hgb 13.4 11.9 - 15.5 g/dL [facility] Hct 42.5 35.6 - 45.5 % [facility] Plt 197 150 - 400 K/cumm [facility] MPV 11.2 9.1 - 12.3 fL [facility] RBC 4.39 3.90 - 5.20 M/cumm [facility] MCV 96.8(H) 81.3 - 96.4 fL [facility] MCH 30.5 27.1 - 33.3 pg [facility] MCHC 31.5(L) 32.3 - 35.7 g/dL [facility] RDW CV 12.6 11.1 - 14.9 % [facility] RDW SD 44.9 35.7 - 48.1 fL [facility] NRBC abs 0.00 0.00 - 0.01 K/cumm [facility] Blood specimen (specimen) 09/30/2018 11:08 AM CDT 09/30/2018 11:20 AM CDT Narrative [facility] - 09/30/2018 11:28 AM CDT If most recent labs were drawn prior to 4 AM, draw only prior to initiating procedure. Prabhu Ribeiro GRINDER SET UP OPERATOR EXTERNAL LAB BLOOD ORDERABLES Final Result [facility] [id number] [place] [address] * XR Chest Pa Lateral 2 Views [...] by: Baljit Fernández M.D. Kathryn Stauffer DO IMG XR PROCEDURES Final Result * (ABNORMAL) Troponin T, 6 Hour 5th Gen (09/30/2018 6:36 AM CDT) Troponin T, 6 Hr 5th Gen 44(H) 6 - 14 ng/L [facility] Troponin T, 6 Hr Delta 3 ng/L [facility] Blood specimen (specimen) 09/30/2018 6:36 AM CDT 09/30/2018 6:39 AM CDT [facility] Vakassi DO LAB BLOOD ORDERABLES Final Resu lt Performing Organization Address [facility] de Phone Number [facility] [address] [facility] [place] [address] * (ABNORMAL) Troponin T, 3 Hour 5th Gen (09/30/2018 3:44 AM CDT) Troponin T, 3 Hr 5th Gen 44(H) 6 - 14 ng/L [facility] Trop[facility] T, 3 Hr Delta 3 ng/L [facility] Blood specimen (specimen) 09/30/2018 3:44 AM CDT 09/30/2018 3:47 AM CDT [facility] DO LAB BLOOD ORDERABLES Final Resu lt Performing Organization Address [facility] de Phone Number [facility] [address] [facility] [place] [address] * eGFR (09/29/2018 11:08 PM CDT) eGFR 76 mL/min/1.7 3 m2 [facility] Comment: Interpretive Data Reference Interval Normal ?>/= 90 mL/min/1.73m2 Mildly decreased* ? 60 - 89 mL/min/1.73m2 Mildly to moderately decreased ?45 - 59 mL/min/1.73m2 Moderately to severely decreased ??30 - 44 mL/min/1.73m2 Severely decreased ?15 - 29 mL/min/1.73m2 Kidney Failure ?< 15 ??mL/min/1.73m2 *Relative to young adult level If -Lao multiply value by 1.16. Estimated glomerular filtration [...] was last reviewed 2015. Blood specimen (specimen) 09/29/2018 11:08 PM CDT 09/29/2018 11:24 PM CDT [facility] DO LAB BLOOD ORDERABLES Final Resu lt Performing Organization Address City/[facility] Co de Phone Number [facility] [address] [facility] [place] [address] * Phosphorus (09/29/2018 11:08 PM CDT) Phosphorus, pl 3.5 2.3 - 4.5 mg/dL [facility] Blood specimen (specimen) 09/29/2018 11:08 PM CDT 09/29/2018 11:24 PM CDT [facility] DO LAB BLOOD ORDERABLES Final Resu lt Performing Organization Address City/[facility] Co de Phone Number [facility] [address] [place] [address] * Magnesium (09/29/2018 11:08 PM CDT) Magnesium 1.8 1.4 - 2.5 mg/dL [facility] Blood specimen (specimen) 09/29/2018 11:08 PM CDT 09/29/2018 11:24 PM CDT [facility] LAB BLOOD ORDERABLES Final Resu lt Performing Organization Address City/[facility]/ZIP Co de Phone Number [facility] [address] [place] [address] * (ABNORMAL) Troponin T 5th Gen series (Baseline, 3hr, 6hr) (09/29/2018 11:08 PM CDT) Troponin T, Baseline 5th Gen 41(H) 6 - 14 ng/L [facility] Blood specimen (specimen) 09/29/2018 11:08 PM CDT 09/29/2018 11:24 PM CDT [facility] LAB BLOOD ORDERABLES Final Resu lt Performing Organization Address [facility] Co de Phone Number [facility] DAWN [address] [place] [address] * (ABNORMAL) Comprehensive metabolic panel (09/29/2018 11:08 PM CDT) Sodium 141 135 - 145 mmol/L [facility] Potassium, pl 3.7 3.3 - 4.9 mmol/L [facility] Chloride 103 97 - 110 mmol/L [facility] CO2 25 22 - 32 mmol/L [facility] Anion gap 13 2 - 15 mmol/L [facility] BUN 15 8 - 25 mg/dL [facility] Creatinine 0.75 0.60 - 1.10 mg/dL [facility] Glucose 171 70 - 199 mg/dL [facility] Comment: Interpretive Data Fasting glucose >/= [...] interpretive data was last revised 2017. Calcium 8.8 8.5 - 10.3 mg/dL [facility] Bilirubin, total 0.2 0.1 - 1.2 mg/dL [facility] Protein, pl 6.4(L) 6.5 - 8.5 g/dL [facility] Albumin 3.6 3.5 - 5.0 g/dL [facility] Alk phos 38(L) 40 - 130 Units/L [facility] ALT 22 7 - 45 Units/L [facility] AST 27 10 - 45 Units/L [facility] Blood specimen (specimen) 09/29/2018 11:08 PM CDT 09/29/2018 11:24 PM CDT us Kathryn Stauffer DO LAB [place]LOOD [place] [address] [address] Department [place] [address] * CBC without differential (09/29/2018 11:08 PM CDT) WBC 8.5 3.8 - 9.9 K/cumm [facility] Hgb 12.3 11.9 - 15.5 g/dL [facility] Hct 36.6 35.6 - 45.5 % [facility] Plt 200 150 - 400 K/cumm [facility] MPV 10.9 9.1 - 12.3 fL [facility] RBC 3.90 3.90 - 5.20 M/cumm [facility] MCV 93.8 81.3 - 96.4 fL [facility] MCH 31.5 27.1 - 33.3 pg [facility] MCHC 33.6 32.3 - 35.7 g/dL [facility] RDW CV 12.7 11.1 - 14.9 % [facility] RDW SD 43.5 35.7 - 48.1 fL [facility] NRBC abs 0.00 0.00 - 0.01 K/cumm [facility] Blood specimen (specimen) 09/29/2018 11:08 PM CDT 09/29/2018 11:24 PM CDT Narrative [facility] - 09/29/2018 11:34 PM CDT while on apixaban. Macarena Vaughan GRINDER SET UP OPERATOR EXTERNAL LAB BLOOD ORDERABLES Final Result Performing Organization Address City/[facility]/ZIP Co de Phone Number [facility] [address] [place] [address] * eGFR (09/29/2018 6:12 PM CDT) [facility] eGFR 83 mL/min/1.7 3 m2 [facility] Comment: Interpretive Data Reference Interval Normal ?>/= 90 mL/min/1.73m2 Mildly decreased* ? 60 - 89 mL/min/1.73m2 Mildly to moderately decreased ?45 - 59 mL/min/1.73m2 Moderately to severely decreased ??30 - 44 mL/min/1.73m2 Severely decreased ?15 - 29 mL/min/1.73m2 Kidney Failure ?< 15 ??mL/min/1.73m2 *Relative to young adult level If -Lao multiply value by 1.16. Estimated glomerular filtration [...] was last reviewed 2015. Blood specimen (specimen) 09/29/2018 6:12 PM CDT 09/29/2018 6:18 PM CDT Macarena Vaughan GRINDER SET UP OPERATOR EXTERNAL LAB BLOOD ORDERABLES Final Result Performing Organization Address City/[facility]/ZIP Co de Phone Number [facility] DA[facility] [address] [place] [address] * Creatinine (09/29/2018 6:12 PM CDT) Creatinine 0.69 0.60 - 1.10 mg/dL [facility] Blood specimen (specimen) 09/29/2018 6:12 PM CDT 09/29/2018 6:18 PM CDT Narrative [facility] - 09/29/2018 6:58 PM CDT Unless preformed in the last 48 hours. Draw prior to apixaban administration. Macarena Vaughan NP LAB BLOOD ORDERABLES Final Result Performing Organization Address City/[facility] Co de Phone Number [facility] [address] [facility] [place] [address] * aPTT (09/29/2018 6:12 PM CDT) Pathologist [facility] aPTT 32.4 25.0 - 37.0 sec [facility] Blood specimen (specimen) 09/29/2018 6:12 PM CDT 09/29/2018 6:17 PM CDT Narrative [facility] - 09/29/2018 6:41 PM CDT Unless preformed in the last 48 hours. Draw prior to apixaban administration. Macarena Vaughan NP LAB BLOOD ORDERABLES Final Result Performing Organization Address [facility] Co de Phone Number [facility] [address] [facility] [place] [address] * (ABNORMAL) Protime-INR (09/29/2018 6:12 PM CDT) PT 16.2(H) 9.5 - 13.0 sec [facility] INR 1.43(H) 0.90 - 1.20 [facility] Blood specimen (specimen) 09/29/2018 6:12 PM CDT 09/29/2018 6:17 PM CDT Narrative [facility] - 09/29/2018 6:38 PM CDT Unless preformed in the last 48 hours. Draw prior to apixaban administration. Macarena A. Vaughan GRINDER SET UP OPERATOR EXTERNAL LAB BLOOD ORDERABLES Final Result Performing Organization Address [facility] de Phone Number [facility] [address] [place] [address] * CBC without differential (09/29/2018 6:12 PM CDT) WBC 7.4 3.8 - 9.9 K/cumm [facility] Hgb 13.3 11.9 - 15.5 g/dL [facility] Hct 40.6 35.6 - 45.5 % [facility] Plt 227 150 - 400 K/cumm [facility] MPV 11.0 9.1 - 12.3 fL [facility] RBC 4.23 3.90 - 5.20 M/cumm [facility] MCV 96.0 81.3 - 96.4 fL [facility] MCH 31.4 27.1 - 33.3 pg [facility] MCHC 32.8 32.3 - 35.7 g/dL [facility] RDW CV 12.7 11.1 - 14.9 % [facility] RDW SD 44.9 35.7 - 48.1 fL [facility] NRBC abs 0.00 0.00 - 0.01 K/cumm [facility] Blood specimen (specimen) 09/29/2018 6:12 PM CDT 09/29/2018 6:18 PM CDT Narrative [facility] - 09/29/2018 6:31 PM CDT Unless preformed in the last 48 hours. Draw prior to apixaban administration. Macarena Vaughan GRINDER SET UP OPERATOR EXTERNAL LAB BLOOD ORDERABLES Final Result Performing Organization Address [facility] Co de Phone Number [facility] DAWN [address] [place] [address] * eGFR (09/29/2018 5:59 PM CDT) eGFR 74 mL/min/1.7 3 m2 [facility] Comment: Interpretive Data Reference Interval Normal ?>/= 90 mL/min/1.73m2 Mildly decreased* ? 60 - 89 mL/min/1.73m2 Mildly to moderately decreased ?45 - 59 mL/min/1.73m2 Moderately to severely decreased ??30 - 44 mL/min/1.73m2 Severely decreased ?15 - 29 mL/min/1.73m2 Kidney Failure ?< 15 ??mL/min/1.73m2 *Relative to young adult level If -Lao multiply value by 1.16. Estimated glomerular filtration [...] was last reviewed 2015. Blood specimen (specimen) 09/29/2018 5:59 PM CDT 09/29/2018 6:08 PM CDT us Macarena Vaughan GRINDER SET UP OPERATOR EXTERNAL LAB BLOOD ORDERABLES Final Result [facility] [address] [place] [address] * (ABNORMAL) Pro B-type natriuretic peptide (09/29/2018 5:59 PM CDT) NT-proBNP 3,947(H) <=450 pg/mL [facility] Comment: Interpretive Comments: A. Dyspnea in Acute [...] strain/failure (including pulmonary embolism and cor pulmonale), critial illness, renal failure, as well as advanced age. - References: 1. Kunal JOSEPH et.al. Eur Heart J. 2006:27:330-337. 2. David RW, Manpreet LAO. J. AM Boaz Cardiol: Cardiovasc Imag. 2009;2: 216- 225. Interpretive Data Last Revised Date: 2017. Blood specimen (specimen) 09/29/2018 5:59 PM CDT 09/29/2018 6:08 PM CDT us Macarena Vaughan GRINDER SET UP OPERATOR EXTERNAL LAB BLOOD ORDERABLES Final Result [facility] [address] [place] [address] * Creatinine (09/29/2018 5:59 PM CDT) Creatinine 0.77 0.60 - 1.10 mg/dL [facility] Blood specimen (specimen) 09/29/2018 5:59 PM CDT 09/29/2018 6:08 PM CDT Macarena Vaughan NP LAB BLOOD ORDERABLES Final Result Performing Organization Address [facility] Co de Phone Number [facility] [address] [address] [facility] [place] [address] * Magnesium (09/29/2018 5:59 PM CDT) Magnesium 1.7 1.4 - 2.5 mg/dL [facility] Blood specimen (specimen) 09/29/2018 5:59 PM CDT 09/29/2018 6:08 PM CDT Macarena Vaughan GRINDER SET UP OPERATOR EXTERNAL LAB BLOOD ORDERABLES Final Result Performing Organization Address [facility] Phone Number [facility] [address] [facility] [place] [address] * ECG 12 lead (09/29/2018 5:33 PM CDT) 09/29/2018 5:33 PM CDT Narrative [facility] - 09/30/2018 12:32 PM CDT Vent Rate: 153 bpm RR Interval: 392 msec VA Interval: 0 msec QRS Duration: 87 msec QT Interval: 270 msec QTC Interval: 356 msec P-R-T [place]: 0 - 36 - -76 degrees Atrial fibrillation WITH RAPID VENTRICULAR RESPONSE ST DEVIATION AND MODERATE T-WAVE ABNORMALITY, CONSIDER INFERIOR ISCHEMIA ??[- 0.1+ mV T WAVE IN II/aVF] ABNORMAL ECG Compared to prior tracing, atrial fibrillation has replaced sinus rhythm Heart rate has increased ST segment depressions are new Electronically Signed By: Jose Scherer MD Macarena Vaughan GRINDER SET UP OPERATOR EXTERNAL ECG ORDERABLES Final Resul t Performing Organization Address [facility] Co in Phone Number [facility] documented in this encounter Visit Diagnoses Diagnosis Atrial fibrillation with rapid ventricular response (CMS/HCC) (HCC)- Primary Atrial fibrillation with rapid ventricular response (CMS/HCC) (HCC) Chest pain Unspecified chest pain Chronic CHF (CMS/HCC) (HCC) Congestive heart failure, unspecified Hypertensive urgency GENNY (obstructive sleep apnea) Obstructive sleep apnea (adult) (pediatric) Anxiety Anxiety state, unspecified Nausea in adult documented in this encounter Administered Medications Inactive Administered Medications - up to 3 most recent administrations Medication Order MAR Action Action Date Dose Rate Site acetaminophen (TYLENOL) tablet 650 mg 650 mg, oral, Every 4 hours PRN, headaches, fever, Starting on Fri09/29/18 at 1940 Given 10/01/2018 3:01 AM CDT 650 mg ALPRAZolam (XANAX) tablet 0.25 mg 0.25 mg, oral, 2 times daily PRN, anxiety, Starting on Fri09/29/18 at 1937 Given 10/01/2018 3:01 AM CDT 0.25 mg aluminum-magnesium hydroxide-simethicone (MAALOX) 40-40-4 mg/mL oral suspension 30 mL 30 mL, oral, 3 times daily before meals, First dose on Fri09/30/18 at 1200 Given 09/30/2018 5:16 PM CDT 30 mL Given 09/30/2018 12:27 PM CDT 30 mL amiodarone (NEXTERONE) 150 mg/100 mL (1.5 mg/mL) in dextrose (premix) 150 mg 150 mg, intravenous, at 600 mL/hr, Administer over 10 Minutes, Once, On Fri09/29/18 at 1745, For 1 dose, Use filter 0.22 micron or less New Bag 09/29/2018 5:44 PM CDT 150 mg 600 mL/hr amiodarone (PACERONE) tablet 200 mg 200 mg, oral, 2 times daily, First dose on Fri10/01/18 at 0900 Given 10/01/2018 8:47 AM CDT 200 mg amiodarone in dextrose (NEXTERONE) 360 mg/200 mL (1.8 mg/mL) infusion (premix) 0.5 mg/min (16.6667 mL/hr, rounded to 16.67 mL/hr), 1.8 mg/mL, intravenous, Continuous, Starting on Fri09/29/18 at 2015, Until Fri10/01/18 at 0753, Indications: Ventricular Rate Control in Atrial Fibrillation, Use filter 0.22 micron or less, RoutineIndications:Ventricular Rate Control in Atrial Fibrillation New Bag 09/30/2018 9:57 PM CDT 0.5 mg/min 16.67 mL/hr Rate/Dose Change 09/30/2018 4:12 PM CDT 0.5 mg/min 16.67 m L/hr New Bag 09/30/2018 12:27 PM CDT 1 mg/min 33.3 mL/hr apixaban (ELIQUIS) tablet 5 mg 5 mg, oral, 2 times daily, First dose on Fri09/29/18 at 2100, May crush and suspend in 60 ml of water, D5W, apple juice or apple sauce. If on heparin infusion, discontinue heparin infusion upon first administration of apixaban., Indications: atrial fibrillationIndications:atrial fibrillation Given 10/01/2018 7:58 AM CDT 5 mg Given 09/30/2018 8:07 PM CDT 5 mg Given 09/30/2018 8:10 AM CDT 5 mg magnesium oxide (MAG-OX) tablet 400 mg 400 mg, oral, 2 times daily, First dose on Fri09/29/18 at 2100, 1 tablet = Magnesium oxide 400 mg = 241.3 mg elemental magnesium Given 09/30/2018 8:0 7 PM CDT 400 mg Given 09/30/2018 8:10 AM CDT 400 mg Given 09/29/2018 8:12 PM CDT 400 mg magnesium sulfate 2 g/50 mL in water (premix) 2 g 2 g, intravenous, Administer over 60 Minutes, Once, On Fri09/30/18 at 1015, For 1 dose New Bag 09/30/2018 1:53 PM CDT 2 g metoprolol XL (TOPROL-XL) extended release tablet 25 mg 25 mg, oral, 2 times daily, First dose on Fri09/29/18 at 2100, Tablets that are scored may be split, but do not crush, chew, dissolve, open or otherwise manipulate tablet/capsule. Given 10/01/2018 7:58 AM CDT 25 mg Given 09/30/2018 8:07 PM CDT 25 mg Given 09/30/2018 8:10 AM CDT 25 mg polyethylene glycol (MIRALAX) packet 17 g 17 g, oral, Daily PRN, constipation, Starting on Fri09/30/18 at 202, Indications: constipationIndications:constipation Given 09/30/2018 8:33 PM CDT 17 g potassium chloride ER (KLOR-CON,K-DUR) extended release tablet 40 mEq 40 mEq, oral, Once, On Fri09/30/18 at 1015, For 1 dose, Do not crush, chew, cut, dissolve, open or otherwise manipulate tablet/capsule. Given 09/30/2018 12:27 PM CDT 40 mEq prochlorperazine (COMPAZINE) injection 5 mg 5 mg, intravenous, Administer over 2 Minutes, Every 6 hours PRN, nausea, vomiting, Starting on Fri09/29/18 at 1940 documented in this encounter Active and Recently Administered Medications Times are shown in CDT. Scheduled Medication Order 09/29/2018 09/30/2018 10/01/2018 aluminum-magnesium hydroxide-simethicone (MAALOX) 40-40-4 mg/mL oral suspension 30 mL 30 mL, oral, 3 times daily before meals, First dose on Fri09/30/18 at 1200 1227 (Given - Provider: Trinidad Giraldo RN)1716 (Given - Provider: Trinidad Giraldo RN) 0603 (Not Given - Provider: Ofe Drew RN - Reason: NPO)1130 (Due) amiodarone (NEXTERONE) 150 mg/100 mL (1.5 mg/mL) in dextrose (premix) 150 mg (COMPLETED) 150 mg, intravenous, at 600 mL/hr, Administer over 10 Minutes, Once, On Fri09/29/18 at 1745, For 1 dose, Use filter 0.22 micron or less 1744 (New Bag - Provider: Meghann Rowland RN) amiodarone (PACERONE) tablet 200 mg 200 mg, oral, 2 times daily, First dose on Fri10/01/18 at 0900 0847 (Given - Provider: Lana Chaves RN) apixaban (ELIQUIS) tablet 5 mg 5 mg, oral, 2 times daily, First dose on Fri09/29/18 at 2100, May crush and suspend in 60 ml of water, D5W, apple juice or apple sauce. If on heparin infusion, discontinue heparin infusion upon first administration of apixaban., Indications: atrial fibrillation 2011 (Given - Provider: Mannie Madison RN) 0810 (Given - Provider: Trinidad Giraldo RN)2006 (Given - Provider: Ofe Drew, BRAYAN) 757 (Given - Provider: Lana Chaves, BRAYAN) magnesium oxide (MAG-OX) tablet 400 mg 400 mg, oral, 2 times daily, First dose on Fri09/29/18 at 2100, 1 tablet = Magnesium oxide 400 mg = 241.3 mg elemental magnesium 2011 (Given - Provider: Mannie Madison RN) 809 (Given - Provider: Trinidad Giraldo RN)2006 (Given - Provider: Ofe Drew RN) 756 (Not Given - Provider: Lana Chaves, BRAYAN - Reason: Patient/family refused) magnesium sulfate 2 g/50 mL in water (premix) 2 g (COMPLETED) 2 g, intravenous, Administer over 60 Minutes, Once, On Fri09/30/18 at 1015, For 1 dose 1353 (New Bag - Provider: Trinidad Giraldo RN) metoprolol XL (TOPROL-XL) extended release tablet 25 mg 25 mg, oral, 2 times daily, First dose on Fri09/29/18 at 2100, Tablets that are scored may be split, but do not crush, chew, dissolve, open or otherwise manipulate tablet/capsule. 2011 (Given - Provider: Mannie Madison RN) 809 (Given - Provider: Trinidad Giraldo RN)2006 (Given - Provider: Ofe Drew, BRAYAN) 757 (Given - Provider: Lana Chaves RN) potassium chloride ER (KLOR-CON,K-DUR) extended release tablet 40 mEq (COMPLETED) 40 mEq, oral, Once, On Fri09/30/18 at 1015, For 1 dose, Do not crush, chew, cut, dissolve, open or otherwise manipulate tablet/capsule. 1227 (Given - Provider: Trinidad Giraldo RN) Continuous Medication Order 09/29/2018 09/30/2018 10/01/2018 amiodarone in dextrose (NEXTERONE) 360 mg/200 mL (1.8 mg/mL) infusion (premix) (CANCELED) 0.5 mg/min (16.6667 mL/hr, rounded to 16.67 mL/hr), 1.8 mg/mL, intravenous, Continuous, Starting on Fri09/29/18 at 2015, Until Fri10/01/18 at 0753, Indications: Ventricular Rate Control in Atrial Fibrillation, Use filter 0.22 micron or less, Routine 2009 (New Bag - Provider: Mannie Madison RN) 0102 (New Bag - Provider: Mannie Madison RN)0545 (New Bag - Provider: Mannie Madison RN)1227 (New Bag - Provider: Trinidad Giraldo, RN)1612 (Rate/Dose Change - Provider: Trinidad Giraldo RN)2157 (New Bag - Provider: Ofe Drew RN) PRN Medication Order 09/29/2018 09/30/2018 10/01/2018 acetaminophen (TYLENOL) tablet 650 mg 650 mg, oral, Every 4 hours PRN, headaches, fever, Starting on Fri09/29/18 at 1940 0301 (Given - Provid er: Oef Drew RN) ALPRAZolam (XANAX) tablet 0.25 mg 0.25 mg, oral, 2 times daily PRN, anxiety, Starting on Fri09/29/18 at 1937 0301 (Given - Provid er: Ofe Drew RN) loratadine (CLARITIN) tablet 10 mg 10 mg, oral, Daily PRN, allergies, Starting on Fri09/29/18 at 1937 polyethylene glycol (MIRALAX) packet 17 g 17 g, oral, Daily PRN, constipation, Starting on Fri09/30/18 at 2021, Indications: constipation 2032 (Given - Provider: Ofe Drew RN) prochlorperazine (COMPAZINE) injection 5 mg 5 mg, intravenous, Administer over 2 Minutes, Every 6 hours PRN, nausea, vomiting, Starting on Fri09/29/18 at 1940 documented in this encounter Orders Medications Ordered That Flaco ht Not Have Been Administered Count Last Ordered Date First Ordered Date loratadine (CLARITIN) tablet 10 mg 1 2018 prochlorperazine (COMPAZINE) injection 5 mg 1 09/29/2018 Diet Count Last Ordered Date First Orde red Date ADULT DISCHARGE DIET 1 10/01/2018 Nursing Count Last Ordered Date First Orde red Date DISCHARGE ACTIVITY 1 10/01/2018 DISCHARGE CALL PROVIDER 1 10/01/2018 OTHER FOLLOW UP 1 10/01/2018 Consult Count Last Ordered Date First Orde red Date IP CONSULT TO SOCIAL WORK 1 09/30/2018 IP CONSULT TO CARDIOLOGY 1 09/29/2018 Admission Count Last Ordered Date First Orde red Date ASSIGN PATIENT STATUS 1 09/30/2018 documented in this encounter Care Teams Technical Specialist Cytology Relationship Specialty Start Date End Date Ronald Castrejon MD PCP - General 06/21/16 07/17/22 Reynaldo Flannery DO Consulting Physician Cardiology 09/26/17 Guanakito Holland MD Consulting Physician Cardiovascular Disease 07/29/18 Jaclyn Eid, RN [address] [facility] [address] [place] [address] Rn Oncology 07/31/18 11/29/18 documented as of this encounter
--- OUTSIDE RECORDS SUMMARY | 2024-04-11 06:39 | XMS_ITS | Encounter Summary ---
Author Organization [facility] Healthcare Address [address] [place] [address] Care Team Providers Care Licensed Optician Name Role Phone Ronald Castrejon MD Primary Care Provider [phone] Reynaldo Flannery DO Unavailable [phone] Encounter Details Date Type Department Care Team (Late st Contact Info) Description 11/18/2017 10:30 AM CDT - 11/18/2017 11:15 AM CDT Surgery [facility] [address] [place] [id number] [place] [address] [place] [address] Esophagogastroduodenoscopy Surgery Details Date/Time Status Location OR Service Patient Class Case Class Case Type Trauma Case? 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 Gender Identity Female 10/09/2022 9:08 AM CDT Sexual Orientation Choose not to disclose 2022 9:08 AM CDT documented as of this encounter Last Filed Vital Signs Vital Sign Reading Time Taken Comments Blood Pressure 197/73 11/18/2017 10:34 AM CDT Pulse 62 11/18/2017 10:34 AM CDT Temperature 36.2 ??C (97.1 ??F) 11/18/2017 10:34 AM C DT Respiratory Rate 14 11/18/2017 10:34 AM CDT Oxygen Saturation 100% 11/18/2017 10:34 AM CDT Inhaled Oxygen Concentration - - Weight 73.5 kg (162 lb) 11/18/2017 10:34 AM CDT Height 154.9 cm (5' 1 ) 11/18/2017 10:34 AM CDT Body Mass Index 30.61 11/18/2017 10:34 AM CDT documented in this encounter Medications at Time of Discharge cholecalciferol (VITAMIN D-3) 2,000 unit tabletIndication s:Prevention of Vitamin D Deficiency take 1 tablet by oral route every day 90 3 12/06/2015 cyanocobalamin (Vitamin B-12) 100 mcg tabletIndication s:Prevention of Vitamin B12 Deficiency Take 10 tablets (1,000 mcg total) by mouth daily ALPRAZolam (XANAX) 0.5 mg tablet 10/10/2016 8 apixaban (ELIQUIS) 5 mg tablet take 1 tablet by oral route 2 times every day 0 0 01/24/2016 3 calcium acetate (PHOSLO) 667 mg capsule Take 667 mg by mouth 3 (three) times a day with meals. 9 digestive enzymes tablet Take by mouth daily 9 docusate sodium (COLACE) 100 mg capsuleIndicatio ns:constipation Take 1 capsule (100 mg total) by mouth 2 (two) times a day as needed for constipation. 60 capsule 09/26/2017 8 fluticasone (FLONASE) 50 mcg/actuation nasal spray INHALE 2 SPRAY BY INTRANASAL ROUTE EVERY DAY IN EACH NOSTRIL 16 g 11 04/11/2017 9 lansoprazole (PREVACID) 15 mg capsule Take 15 mg by mouth daily. 9 magnesium gluconate 200 mg tabletIndication s:hypomagnesemia 200 mg. 09/11/19 1 9 traMADol (ULTRAM) 50 mg tablet Take 1 tablet (50 mg total) by mouth every 6 (six) hours as needed for pain. 21 tablet 11/18/2017 8 documented as of this encounter Ordered Prescriptions Prescription Sig Dispense Quantity Refills Last Filled Start Date End Date traMADol (ULTRAM) 50 mg tablet Take 1 tablet (50 mg total) by mouth every 6 (six) hours as needed for pain. 21 tablet 11/18/2017 12/23/2017 documented in this encounter Discharge Disposition Disposition Code Departure Means Destination Discharge to home or self care documented in this encounter Procedure Notes * Buddy Weir MD - 11/18/2017 12:17 PM CDTAssociated Order(s): ERCP ENDOSCOPY LAB Patient Name: Abena Giron Procedure Date: 11/18/2017 12:17 PM Admit Type: Outpatient Room: [facility] Date of : 1940 Instrument Name: [id number] Gender: Female Note Status: Finalized Procedure: ERCP Indications: Bile duct stone(s), Abdominal pain of suspected biliary origin, Biliary dilation on Ultrasound, Evaluation and possible treatment of bile duct stone(s) Providers: Buddy Weir MD Referring MD: Ronald Castrejon MD Medicines: Monitored Anesthesia Care Complications: No immediate complications. Estimated blood loss: None Estimated Blood Loss: Estimated blood loss: none. Procedure: The benefits, risks, and alternatives to the procedure and sedation were discussed and informed consent was obtained. The Enteroscope was introduced through the mouth, and used to inject contrast into without successful cannulation. 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 The patient tolerated the procedure well. Findings: The upper GI tract was traversed under direct vision without detailed examination. The upper GI tract was normal, fibrotic major papilla. Impression: - Normal upper GI tract, fibrotic major papilla. Recommendation: - Avoid aspirin and nonsteroidal anti-inflammatory medicines today. - Low fat diet today. - Perform MRCP at the next available appointment. - Return to GI clinic in 2 weeks. Attending Participation: I personally performed the entire procedure. Buddy Weir M.D. Buddy Weir MD 11/18/2017 1:07:24 PM Number of Addenda: 0 Note Initiated On: 11/18/2017 12:17 PM documented in this encounter Consult Notes * Buddy Weir MD - 11/18/2017 10:56 AM CDT Gastroenterology Consult Subjective Patient is a 77 y.o. female with chief complaint of GERD, dyspepsia, RUQ pain, dilated CBD. Reason for consult: as mentioned above HPI: [...] SURGICAL HISTORY 2016 Atrial Fibrillation: Cardiovascular Intervention Prescriptions Prior to Admission Medication Sig Dispense Refill Last Dose ??? ALPRAZolam (XANAX) 0.5 mg tablet 11/17/2017 at Unknown time ??? apixaban (ELIQUIS) 5 mg tablet take 1 tablet by oral route 2 times every day 0 0 11/14/2017 at Unknown time ??? calcium acetate (PHOSLO) 667 mg capsule Take 667 mg by mouth 3 (three) times a day with meals. 11/17/2017 at Unknown time ??? cholecalciferol (VITAMIN D-3) 2,000 unit tablet take 1 tablet by oral route every day 90 3 11/17/2017 at Unknown time ??? cyanocobalamin (Vitamin B-12) 100 mcg tablet Take 100 mcg by mouth daily. 11/17/2017 at Unknown time ??? digestive enzymes tablet Take by mouth 3 (three) times a day with meals. 11/17/2017 at Unknown time ??? docusate sodium (COLACE) 100 mg capsule Take 1 capsule (100 mg total) by mouth 2 (two) times a day as needed for constipation. 60 capsule 0 11/17/2017 at Unknown time ??? fluticasone (FLONASE) 50 mcg/actuation nasal spray INHALE 2 SPRAY BY INTRANASAL ROUTE EVERY DAYIN EACH NOSTRIL 16 g 11 11/17/2017 at Unknown time ??? lansoprazole (PREVACID) 15 mg capsule Take 15 mg by mouth daily. 11/17/2017 at Unknown time ??? magnesium gluconate 200 mg tablet 200 mg. Allergies Allergen Reactions ??? Codeine Rash, Vomiting, [...] ??? Phenobarbital ??? Sotalol ??? Diltiazem Itching Social History Substance Use Topics ??? Smoking status: Former Smoker ??? Smokeless tobacco: Never Used ??? Alcohol use No Family History Problem Relation Age of [...] Depression; ??? Hypertension Brother Hypertension; Social History Social History ??? Marital status: Single Spouse name: N/A ??? Number of children: N/A ??? Years of education: N/A Occupational History ??? Not on file. Social History Main Topics ??? Smoking status: Former Smoker ??? Smokeless tobacco: Never Used ??? Alcohol use No ??? Drug use: No ??? Sexual [...] and skin lesion changes Objective Physical Exam: BP (!) 197/73 Pulse 62 Temp 36.2 ??C (97.1 ??F) (Temporal) Resp 14 Ht 154.9 cm (5' 1 ) Wt73.5 kg (162 lb) SpO2 100% BMI 30.61 kg/m?? General Appearance: Alert, cooperative, no distress, appears [...] past 24hour(s)). No results found. Assessment /Plan mentioned above, proceed with ERCP. documented in this encounter Plan of Treatment Pending Results Name Type Priority Associated Diagnoses Date /Time FL ERCP Endo Imaging Procedure IP Routine 2:34 PM CDT documented as of this encounter Procedures Procedure Name Priority Date/Time Associated Diagnosis Comments ERCP IP Routine 11/18/2017 2:34 PM CDT ESOPHAGOGASTRODUODENOSCOPY 11/18 12:21 PM CDT K30 R10.11 ERCP 11/18/2017 12:17 PM CDT documented in this encounter Results * ERCP (11/18/2017 12:17 PM CDT) Anatomical Region Laterality Modality Other Narrative Procedure Note Buddy Weir MD - 11/18/2017 12:17 PM CDT ENDOSCOPY LAB Patient Name: Abena Giron Procedure Date: 11/18/2017 12:17 PM Admit Type: Outpatient Room: [facility] Date of : 1940 Instrument Name: [id number] Gender: Female Note Status: Finalized Procedure: ERCP Indications: Bile duct stone(s), Abdominal pain of suspected biliary origin, Biliary dilation on Ultrasound, Evaluation and possible treatment of bile duct stone(s) Providers: Buddy Weir MD Referring MD: Ronald Castrejon MD Medicines: Monitored Anesthesia Care Complications: No immediate complications. Estimated blood loss:None Estimated Blood Loss: Estimated blood loss: none. Procedure: The benefits, risks, and alternatives to the procedureand sedation were discussed and informed consent wasobtained. The Enteroscope was introduced through the mouth, andused to inject contrast into without successful cannulation. 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 Findings: The upper GI tract was traversed under direct vision without detailed examination. The upper GI tract was normal, fibrotic major papilla. Impression: - Normal upper GI tract, fibrotic major papilla. Recommendation: - Avoid aspirin and nonsteroidal anti-inflammatory medicines today. - Low fat diet today. - Perform MRCP at the next available appointment. - Return to GI clinic in 2 weeks. Attending Participation: I personally performed the entire procedure. Buddy Weir M.D. Buddy Weir MD 11/18/2017 1:07:24 PM Number of Addenda: 0 Note Initiated On: 11/18/2017 12:17 PM Buddy Weir MD ENDOSCOPY PROCEDURES Final Result documented in this encounter Visit Diagnoses Not on filedocumented in this encounter Administered Medications Inactive Administered Medications - up to 3 most recent administrations Medication Order MAR Action Action Date Dose Rate Site Lactated Ringer's (LR) infusion 50 mL/hr, intravenous, Continuous, Starting on Fri11/18/17 at 1130, Phase I New Bag 11/18/2017 12:24 PM CDT New Bag 11/18/2017 10:49 AM CDT 50 mL/hr 50 mL/hr sodium chloride 0.9% flush 0.5-20 mL 0.5-20 mL, intra-catheter, Every 8 hours scheduled, First dose on Fri11/18/17 at 1400, Pre-Procedure (GI), Flush volume based on line type and size. , Indications: FlushingIndications:Flushing sodium chloride 0.9% flush 0.5-20 mL 0.5-20 mL, intra-catheter, As needed, line care, Starting on Fri11/18/17 at 1034, Pre-Procedure (GI), Flush volume based on line type and size. Flush before and after each use. , Indications: FlushingIndications:Flushing sodium chloride 0.9% infusion 30 mL/hr, intravenous, Continuous, Starting on Fri11/18/17 at 1115, Pre- Procedure (GI) documented in this encounter Historical Medications * This list may reflect changes made after this encounter. magnesium gluconate 200 mg tabletIndications:h ypomagnesemia 200 mg. 09/10/2018 added in this encounter Active and Recently Administered Medications Times are shown in CDT. Scheduled Medication Order 11/16/2017 11/17/2017 11/18/2017 fentaNYL (SUBLIMAZE) preservative free injection 25 mcg(Linked Group 1) 25 mcg, intravenous, Once, On Fri11/18/17 at 1330, For 1 dose, Recovery (GI), Administer fentaNYL if allergy to HYDROmorphone. Notify MD of pain score greater than 4., Indications: Pain 1330 (Due) HYDROmorphone (DILAUDID) injection 1 mg(Linked Group 1) 1 mg, intravenous, Once, On Fri11/18/17 at 1330, For 1 dose, Recovery (GI), Notify MD of pain score greater than 4., Indications: Pain 1330 (Due) sodium chloride 0.9% flush 0.5-20 mL 0.5-20 mL, intra-catheter, Every 8 hours scheduled, First dose on Fri11/18/17 at 1400, Pre-Procedure (GI), Flush volume based on line type and size. , Indications: Flushing 1400 (Due) Continuous Medication Order 11/16/2017 11/17/2017 11/18/2017 Lactated Ringer's (LR) infusion 50 mL/hr, intravenous, Continuous, Starting on Fri11/18/17 at 1130, Phase I 1049 (New Bag - Prov ider: Katelyn Palmer RN)1224 (New Bag - Provider: Cece Currie CRNA)1257 (Anesthesia Volume Adjustment - Provider: Cece Currie CRNA) sodium chloride 0.9% infusion 30 mL/hr, intravenous, Continuous, Starting on Fri11/18/17 at 1115, Pre-Procedure (GI) 1115 (Due) sodium chloride 0.9% infusion 125 mL/hr, intravenous, Continuous, Starting on Fri11/18/17 at 1330, Recovery (GI) 1330 (Due) PRN Medication Order 11/16/2017 11/17/2017 11/18/2017 LORazepam (ATIVAN) injection 1 mg 1 mg, intravenous, Every 30 min PRN, abdominal pain or spasms, Starting on Fri11/18/17 at 1255, For 2 doses, Recovery (GI), Indications: Muscle Spasm with Pain ondansetron (ZOFRAN) injection 4 mg 4 mg, intravenous, Every 30 min PRN, nausea, vomiting, Starting on Fri11/18/17 at 1255, For 2 doses, Recovery (GI), Indications: Nausea and Vomiting sodium chloride 0.9% flush 0.5-20 mL 0.5-20 mL, intra-catheter, As needed, line care, Starting on Fri11/18/17 at 1034, Pre-Procedure (GI), Flush volume based on line type and size. Flush before and after each use. , Indications: Flushing Linked Groups Order Group 1: HYDROmorphone (DILAUDID) injection 1 mgJump to med 1 mg, intravenous, Once, On Fri11/18/17 at 1330, For 1 dose, Recovery (GI), Notify MD of pain score greater than 4., Indications: Pain Or fentaNYL (SUBLIMAZE) preservative free injection 25 mcgJump to med 25 mcg, intravenous, Once, On Fri11/18/17 at 1330, For 1 dose, Recovery (GI), Administer fentaNYL if allergy to HYDROmorphone. Notify MD of pain score greater than 4., Indications: Pain documented in this encounter Orders Medications Ordered That Flaco ht Not Have Been Administered Count Last Ordered Date First Ordered Date fentaNYL (SUBLIMAZE) preserv ative free injection 25 mcg 1 11/18/2017 HYDROmorphone (DILAUDID) injection 1 mg 1 0 11/18/2017 LORazepam (ATIVAN) injection 1 mg 1 018 ondansetron (ZOFRAN) injection 4 mg 1 11/18 sodium chloride 0.9% flush 0.5-20 mL 2 10/23 sodium chloride 0.9% infusion 2 11/18/2017 documented in this encounter Care Teams Licensed Optician Relationship Specialty Start Date End Date Ronald Castrejon MD PCP - General 06/21/16 07/17/22 Reynaldo Flannery DO Consulting Physician Cardiology 09/26/17 documented as of this encounter
--- OUTSIDE RECORDS SUMMARY | 2024-04-11 06:39 | XMS_ITS | Encounter Summary ---
Author Organization [facility] Address [address] [place] [address] Care Team Providers Care Saw Runner Name Role Phone Ronald Castrejon MD Primary Care Provider [phone] Reynaldo Flannery DO Unavailable [phone] Reason for Visit * Reason Comments Hyperlipidemia Encounter Details Date Type Department Care Team (Late st Contact Info) Description 12/23/2017 2:00 PM CDT Office Visit [facility] [address] [place] [address] [address] [place] [address] Ronald Castrejon MD [address] [place], [place] [id number] Paroxysmal atrial fibrillation (CMS/HCC) (Primary Dx); BMI 30.0-30.9,adult; Anxiety; B12 deficiency; Chronic GERD Social History Tobacco Use Types Packs/Day Years Used Date Smoking Tobacco: Former Smokeless Tobacco: Never Alcohol Use Standard Drinks/Week Comments No 0 (1 standard drink = 0.6 oz pur e alcohol) Comments Unknown Sex and Gender Information Value Date Recorded Sex Assigned at Not on file 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 Gender Identity Female 10/09/2022 9:08 AM CDT Sexual Orientation Choose not to disclose 2022 9:08 AM CDT documented as of this encounter Last Filed Vital Signs Vital Sign Reading Time Taken Comments Blood Pressure 118/82 12/23/2017 1:46 PM CDT Pulse 72 12/23/2017 1:46 PM CDT Temperature - - Respiratory Rate 16 12/23/2017 1:46 PM CDT Oxygen Saturation - - Inhaled Oxygen Concentration - - Weight 72.1 kg (159 lb) 12/23/2017 1:46 PM CDT Height 154.9 cm (5' 1 ) 12/23/2017 1:46 PM CDT Body Mass Index 30.04 12/23/2017 1:46 PM CDT documented in this encounter Ordered Prescriptions Prescription Sig Dispense Quantity Refills Last Filled Start Date End Date ALPRAZolam (XANAX) 0.5 mg tablet Take 1 tablet (0.5 mg total) by mouth 3 (three) times a day as needed for anxiety. 90 tablet 4 12/23/2017 09/23/2018 documented in this encounter Progress Notes * Ronald Castrejon MD - 12/23/2017 2:00 PM CDT Subjective/Objective Patient ID: Abena Giron is a 77 y.o. female. Chief Complaint Hyperlipidemia HPI Sixty seen today she 77 years of age she states she is doing great she has follow-up with GI in [place] had a ERCP colonoscopy total come back in 5 years with colonoscopy she has follow-upwith electrophysiology Dr. urmila Cent[facility] she has a history of atrial fibrillation paroxysmal in nature now she is on Eliquis tolerates well without side effects she needs Xanax on a p.r.n. basis for anxiety as pretty much all I treat her for the patient has a history of high blood pressure in the past but the past few years her blood pressure control without medications. Shefeels good does not feel like she needs come in here more than just once a year. Patient refuses all vaccinations risk benefits of vaccines were discussed with her at length but she states she has never taken vaccines in never will The patient does states she gets a mammogram yearly does self-breast examination monthly Review of Systems Review of Systems neurological [...] ideation hematological no bleeding or bruising Vitals: 12/23/17 1346 BP: 118/82 BP Location: Left arm Patient Position: Sitting Pulse: 72 Resp: 16 Weight: 72.1 kg (159 lb) Height: 154.9 cm (5' 1 ) Physical Exam She is pleasant no distress lungs clear cardiovascular regular abdomen soft nontender blood pressure confirmed Assessment/Plan Diagnoses and all orders for this visit: Paroxysmal atrial fibrillation (CMS/HCC) (Primary) BMI 30.0-30.9,adult Anxiety B12 deficiency Chronic GERD Other orders - ALPRAZolam (XANAX) 0.5 mg tablet; Take 1 tablet (0.5 mg total) by mouth 3 (three) times a day as needed for anxiety. Xanax 0.5 3 times a day p.r.n. for anxiety she takes it sporadically no side effects no sedation noconfusion continue same She has a history of reflux follows anti reflux measures in she uses Prevacid [id number] since her insurance would not pay for the prescription Prevacid it works well she takes 250 mg tablets daily She takes oral B12 supplementation with good results check B12 level next visit Side effects, risks, interactions reviewed with patient. [...] atrial fibrillation (CMS/HCC) (HCC)- Primary Atrial fibrillation BMI 30.0-30.9,adult Anxiety Anxiety state, unspecified B12 deficiency Chronic GERD documented in this encounter Discontinued Medications Medication Sig Discontinue Reason Start Date End Da te traMADol (ULTRAM) 50 mg tablet Take 1 tablet (50 mg total) by mouth every 6 (six) hours as needed for pain. 11/18/2017 12/23/2017 docusate sodium (COLACE) 100 mg capsuleIndications:const ipation Take 1 capsule (100 mg total) by mouth 2 (two) times a day as needed for constipation. 09/26/2017 12/23/2017 ALPRAZolam (XANAX) 0.5 mg tablet Reorder 10/10/2016 12/23/2017 documented as of this encounter Care Teams Saw Runner Relationship Specialty Start Date End Date Ronald Castrejon MD PCP - General 06/21/16 07/17/22 Reynaldo Flannery DO Consulting Physician Cardiology 09/26/17 documented as of this encounter
--- OUTSIDE RECORDS SUMMARY | 2024-04-11 06:39 | XMS_ITS | Encounter Summary ---
Author Organization [facility] Healthcare Address [address] [place] [address] Care Team Providers Care Insurance Manager Name Role Phone Ronald Castrejon MD Primary Care Provider [phone] Encounter Details Date Type Department Care Team (Latest Contact Info) Description 09/25/2017 10:14 AM CDT - 09/25/2017 11:59 PM CDT Hospital Encounter [facility] Discharge Disposition: Discharge to home or self care Social History Tobacco Use Types Packs/Day Years Used Date Smoking Tobacco: Former Smokeless Tobacco: Never Alcohol Use Standard Drinks/Week Comments No 0 (1 standard drink = 0.6 oz pur e alcohol) Comments Unknown Sex and Gender Information Value Date Recorded Sex Assigned at Not on file 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 9 documented as of this encounter Discharge Disposition Disposition Code Departure Means Destination Discharge to home or self care documented in this encounter Plan of Treatment Not on file documented as of this encounter Visit Diagnoses Not on filedocumented in this encounter Care Teams Insurance Manager Relationship Specialty Start Date End Date Ronald Castrejon MD PCP - General 06/21/16 07/17/22 documented as of this encounter
--- OUTSIDE RECORDS SUMMARY | 2024-04-11 06:39 | XMS_ITS | Encounter Summary ---
Author Organization [facility] Healthcare Address [address] [place] [address] Care Team Providers Care Teacher Vocational Training Name Role Phone Ronald Castrejon MD Primary Care Provider [phone] Reynaldo Flannery DO Unavailable Guanakito Holland MD Unavailable [phone] Jaclyn Eid RN Unavailable [phone] Encounter Details Date Type Department Care Team (Latest Contact Info) Description 09/14/2018 12:03 PM CDT - 09/14/2018 11:59 PM CDT Hospital Encounter [facility] [address] [place] [address] Reynaldo Flannery, DO [address] [place] [address] Discharge Disposition: Discharge to home or self [...] file Legal 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 Female 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 Gender Identity Female 10/09/2022 9:08 AM [...] Priority Date/Time Associated Diagnosis Comments XR CHEST 1 VIEW STAT 09/14/2018 12:16 PM CDT documented in this encounter Results * X-ray chest 1 view (09/14/2018 12:16 [...] on filedocumented in this encounter Care Teams Teacher Vocational Training Relationship Specialty Start Date End Date Ronald Castrejon MD PCP - General 06/21/16 07/17/22 Reynaldo Flannery DO Consulting Physician Cardiology 09/26/17 Guanakito Holland MD Consulting Physician Cardiovascular Disease 07/29/18 Jaclyn Eid, RN [address] [place] [id number] [employer] 07/31/18 11/29/18 documented as of this encounter
--- OUTSIDE RECORDS SUMMARY | 2024-04-11 06:39 | XMS_ITS | Encounter Summary ---
Author Organization [facility] Address [address] [place] [address] Care Team Providers Care Concrete Bucket Unloader Name Role Phone Ronald Castrejon MD Primary Care Provider [phone] Reynaldo Flannery DO Unavailable [phone] Guanakito Holland MD Unavailable [phone] Jaclyn Eid RN Unavailable [phone] Encounter Details Date Type Department Care Team (Late st Contact Info) Description 09/23/2018 Orders Only [facility] [address] [place] [address] Ronald Castrejon MD [address] [place] [address] [address] [place] [address] Social History Tobacco Use Types Packs/Day Years Used Date Smoking Tobacco: Former Cigarettes Q uit: 1975 Smokeless Tobacco: Never Alcohol Use Standard Drinks/Week Comments No 0 (1 standard drink = 0.6 oz pur e alcohol) Comments No Sex and Gender Information Value Date Recorded Sex Assigned at Not on file Legal Sex Female 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 Gender Identity Female 10/09/2022 9:08 AM CDT Sexual Orientation Choose not to disclose 2022 9:08 AM CDT documented as of this encounter Ordered Prescriptions Prescription Sig Dispense Quantity Refills Last Filled Start Date End Date ALPRAZolam (XANAX) 0.25 mg tablet Take 1 tablet (0.25 mg total) by mouth 2 (two) times a day as needed for anxiety 60 tablet 1 09/23/2018 3 documented in this encounter Plan of Treatment Not on file documented as of this encounter Visit Diagnoses Not on filedocumented in this encounter Discontinued Medications Medication Sig Discontinue Reason Start Date End Da te ALPRAZolam (XANAX) 0.5 mg tablet Take 1 tablet (0.5 mg total) by mouth 3 (three) times a day as needed for anxiety. 12/23/2017 09/23/2018 documented as of this encounter Care Teams Concrete Bucket Unloader Relationship Specialty Start Date End Date Ronald Castrejon MD PCP - General 06/21/16 07/17/22 Reynaldo Flannery DO Consulting Physician Cardiology 09/26/17 Guanakito Holland MD Consulting Physician Cardiovascular Disease 07/29/18 Jaclyn Eid, RN [address] [place] [address] [place] [id number] Ground Instructor Basic 07/31/18 11/29/18 documented as of this encounter
--- OUTSIDE RECORDS SUMMARY | 2024-04-11 06:39 | XMS_ITS | Encounter Summary ---
Author Organization [facility] Healthcare Address [address] [place] [address] Care Team Providers Care Checker In Name Role Phone Ronald Castrejon MD Primary Care Provider Reynaldo Flannery DO Unavailable [phone] Guanakito Holland MD Unavailable Reason for Visit * Reason Comments Sore Throat Earache Encounter Details Date Type Department Care Team (Latest Contact Info) Description 07/28/2018 11:42 PM CDT - 07/30/2018 11:55 AM CDT Hospital Encounter [facility] [address]U [address] [place] [address] Harjit Kovacs MD [address] [place] [address] [place] [address] Maurilio Wolfe MD [address] [place] [address] [address] [place] [address] Dinah Anguiano MD [address] [place] [address] Jarrett Oquendo Jr., MD [address] [place] [address] [place] [address] Atrial fibrillation with rapid ventricular response (CMS/HCC) (Primary Dx); Acute coronary syndrome (CMS/HCC) Discharge Disposition: Discharge to home or self care Social History Tobacco Use Types Packs/Day Years Used Date Smoking Tobacco: Former Smokeless Tobacco: Never Alcohol Use Standard Drinks/Week Comments No 0 (1 standard drink = 0.6 oz pur e alcohol) Comments Unknown Sex and Gender Information Value Date Recorded Sex Assigned at Not on file 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 Gender Identity Female 10/09/2022 9:08 AM CDT Sexual Orientation Choose not to disclose 2022 9:08 AM CDT documented as of this encounter Last Filed Vital Signs Vital Sign Reading Time Taken Comments Blood Pressure 125/80 07/30/2018 7:58 AM CDT Pulse 90 07/30/2018 10:00 AM CDT Temperature 36.1 ??C (97 ??F) 07/30/2018 7:58 AM CDT Respiratory Rate 18 07/30/2018 7:58 AM CDT Oxygen Saturation 96% 07/30/2018 7:58 AM CDT Inhaled Oxygen Concentration - - Weight 75.4 kg (166 lb 3.6 oz) 07/30/2018 9:36 A M CDT Height 154.9 cm (5' 1 ) 07/29/2018 2:28 AM CDT Body Mass Index 31.41 07/29/2018 2:28 AM CDT documented in this encounter Discharge Summaries * Jarrett Oquendo MD - 07/30/2018 10:32 AM CDT Inpatient Discharge Summary BRIEF OVERVIEW Admitting Provider: Dinah Anguiano MD Discharge Provider: Jarrett Oquendo MD Primary Care Physician at Discharge: Ronald Castrejon MD [phone] Admission Date: 07/28/2018 Discharge Date: 07/30/2018 Primary Discharge Diagnosis: Atrial fibrillation with RVR (CMS/HCC) Secondary Discharge Diagnosis: Hyperlipidemia Coronary artery disease involving [place] coronary artery of [place] heart without angina pectoris Paroxysmal atrial fibrillation (CMS/HCC) Chronic GERD Anxiety Diarrhea of infectious origin NSTEMI (non-ST elevated myocardial infarction) (CMS/HCC) Sore throat DETAILS OF HOSPITAL STAY Presenting Problem/History of Present Illness: Atrial fibrillation with RVR ([facility]/HCC) Ms. Giron is a 78 y/o woman w/ h/o paroxysmal Afib, sick sinus syndrome, GERD, HLD, and anxiety who presented to the ED b/c of sore throat, nausea, and diarrhea. She also reported a pressure-like chest pain associated w/ dizziness but denied diaphoresis and palpitations. She was found to be in Afib with RVR in the ED so cardiology was consulted. Hospital Course: Paroxysmal atrial fibrillation with RVR / sick sinus syndrome - heart rate currently stable overnight Pacemaker placed 07/29 and Diltiazem was started to prevent further episodes of RVR. CXR this morning shows good lead placement. Follow-up planned with cardiology on 08/05/18 for site check. Hyperlipidemia - continue statin therapy NSTEMI - troponin elevation most likely due to demand ischemia from RVR, now downtrending, has known CAD, rate now controlled and Diltiazem is being started Chronic GERD - start Protonix on discharge Anxiety - continue home Xanax prn Diarrhea of infectious origin - most likely viral gastroenteritis, resolving, monitor for worseningdiarrhea Test Results Pending at Discharge: Operative Procedures Performed: Procedure(s): IMPLANT DUAL CHAMBER PPM SYSTEM W/ DUAL ELECTRODES (GEN AND LEADS, NEW OR REPLACE) 55467 Other Procedures: Pertinent Test Results: EKG 07/29/18 Vent Rate: 136 bpm RR Interval: 440 msec NH Interval: 0 msec QRS Duration: 88 msec QT Interval: 260 msec QTC Interval: 340 msec P-R-T Hassell: 0 - 12 - 0 degrees ?? ATRIAL FIBRILLATION WITH RAPID VENTRICULAR RESPONSE MARKED ST DEPRESSION, CONSIDER ??SUBENDOCARDIAL INJURY [0.2+ mV ST DEPRESSION] ABNORMAL ECG Compared to 02/09/2016 atrial fibrillation is new, ST depression is new ?? Electronically Signed By: Dr Jarrett Mathis EKG 07/29/18 Vent Rate: 101 bpm RR Interval: 592 msec NH Interval: 0 msec QRS Duration: 95 msec QT Interval: 318 msec QTC Interval: 376 msec P-R-T Hassell: 0 - 29 - 17 degrees ?? ATRIAL FIBRILLATION WITH RAPID VENTRICULAR RESPONSE NONSPECIFIC ST \T\ T-WAVE ABNORMALITY ABNORMAL RHYTHM ECG Compared to 07/29/2018 no change ?? Electronically Signed By: Dr Jarrett Mathis EKG 07/30/18 Vent Rate: 101 bpm RR Interval: 593 msec NH Interval: 0 msec QRS Duration: 97 msec QT Interval: 376 msec QTC Interval: 434 msec P-R-T Hassell: 0 - 32 - -2 degrees ?? ATRIAL FIBRILLATION WITH RAPID VENTRICULAR RESPONSE MODERATE ST DEPRESSION [0.05+ mV ST DEPRESSION] ABNORMAL ECG Compared to 07/29/2018 no change ?? Electronically Signed By: Dr Jarrett Mathis CXR 07/29/18 IMPRESSION: NO ACTIVE CARDIOPULMONARY DISEASE. CXR 07/29/18 IMPRESSION: INTERVAL PLACEMENT OF LEFT SUBCLAVIAN PACEMAKER WITH LEADS IN THE RIGHT ATRIUM AND RIGHT VENTRICLE WITH NO PNEUMOTHORAX. CXR 07/30/18 IMPRESSION: 1. LEFT SUBCLAVIAN PACEMAKER WITH LEADS APPEARING UNCHANGED. 2. NO ACTIVE DISEASE. Discharge Details Physical Exam at Discharge: Discharge Condition: good Pulse: 90 Resp: 18 BP: 125/80 Temp: 36.1 ??C (97 ??F) Weight: 75.4 kg (166 lb 3.6 oz) BP 125/80 (BP Location: Right arm, Patient Position: Lying) Pulse 90 Temp 36.1 ??C (97 ??F) (Tympanic) Resp 18 Ht 154.9 cm (5' 1 ) Wt 75.4 kg (166 lb 3.6 oz) LMP (LMP Unknown) SpO2 96% BMI 31.41 kg/m?? Pertinent Exam Findings at Discharge: Gen: awake, no acute distress, pleasant and cooperative Neuro: no focal deficits, CN II-XII grossly intact Eyes: extraocular movement intact, sclerae anicteric Neck: supple, no lymphadenopathy CV: regular rate and rhythm; no murmurs, rubs, or gallops; no peripheral edema Pulm: clear to auscultation bilaterally; no wheezes, rales, or rhonchi Chest: bandage over pacemaker placement site Abd: soft, non-tender, non-distended, normal bowel sounds MSK: no cyanosis or clubbing, left arm in sling Psych: normal mood and affect Labs at discharge: Recent Results (from the past 24 hour(s)) Troponin T Collection Time: 07/29/18 12:08 PM Result Value Ref Range Troponin T 0.40 (Critical) 0.00 - 0.01 ng/mL Troponin T Collection Time: 07/29/18 6:10 PM Result Value Ref Range Troponin T 0.59 (Critical) 0.00 - 0.01 ng/mL Troponin T Collection Time: 07/30/18 12:00 AM Result Value Ref Range Troponin T 0.74 (Critical) 0.00 - 0.01 ng/mL Phosphorus Collection Time: 07/30/18 6:55 AM Result Value Ref Range Phosphorus, pl 3.7 2.3 - 4.5 mg/dL Magnesium Collection Time: 07/30/18 6:55 AM Result Value Ref Range Magnesium 1.8 1.6 - 2.4 mg/dL Basic metabolic panel Collection Time: 07/30/18 6:55 AM Result Value Ref Range Sodium 139 135 - 145 mmol/L Potassium, pl 3.9 3.3 - 4.9 mmol/L Chloride 105 97 - 110 mmol/L CO2 24 22 - 32 mmol/L Anion Gap 10 2 - 15 mmol/L BUN 11 8 - 25 mg/dL Creatinine 0.93 0.60 - 1.10 mg/dL Glucose 108 70 - 199 mg/dL Calcium 8.8 8.5 - 10.3 mg/dL CBC without differential Collection Time: 07/30/18 6:55 AM Result Value Ref Range WBC 6.9 3.8 - 9.9 K/cumm Hgb 12.4 11.9 - 15.5 g/dL Hct 36.1 35.6 - 45.5 % Plt 175 150 - 400 K/cumm MPV 10.5 9.1 - 12.3 fL RBC 3.95 3.90 - 5.20 M/cumm MCV 91.4 81.3 - 96.4 fL MCH 31.4 27.1 - 33.3 pg MCHC 34.3 32.3 - 35.7 g/dL RDW CV 13.0 11.1 - 14.9 % RDW SD 42.9 35.7 - 48.1 fL NRBC Abs 0.00 0.00 - 0.01 K/cumm Troponin T Collection Time: 07/30/18 6:55 AM Result Value Ref Range Troponin T 0.67 (Critical) 0.00 - 0.01 ng/mL eGFR Collection Time: 07/30/18 6:55 AM Result Value Ref Range GFR 59 mL/min/1.73 m2 Discharge Disposition: Discharge to home or self care Full Code Discharge Instructions: Activity Instructions Discharge Activity: Driving restrictions -Do NOT drive until after your wound check appointment in 1 week and cleared by the implanting physician. Discharge Activity: Lifting restrictions -NO lifting greater than 10 pounds for 4 weeks with affected arm. Discharge activity: Shower -NO showers until after your wound check appointment in 1 week. Other Instructions Call provider for: Notify the office immediately of any bleeding, increased bruising, redness, warmth, increased swelling, excessive pain, drainage, or a fever (more than 100.5). Post-Discharge Dressing Care: Do not remove before follow-up visit. -Keep your incision dry for the first 5-7 days, even while bathing. NO showers until after your wound check appointment in one week. -After 5 days, clean your incision site daily with mild soap and water. Gently pat the area dry, and avoid vigorous scrubbing directly on or near your incision. Then cover the incision with a dry dressing daily (either a gauze and tape or an extra large band-aid work well). -Inspect your incision/device site daily. Notify the office immediately of any bleeding, increased bruising, redness, warmth, increased swelling, excessive pain, drainage, or a fever (more than 100.5). -There are no stitches in your incision (only on the inside, and these dissolve). -Dermabond (surgical skin glue) will gradually dissolve, but it must be kept dry for 5-7 days. Allow Dermabond to come off on its own, Do NOT pull it off. -Keep your incision covered (other than to clean and inspect the site) until you are seen in the office. Dressing Removal: Do not remove before follow-up visit. Special Instructions -No lifting of the affected arm above the shoulder for 4 weeks. -Wear your sling for 2 days (48 hours) post implant. After the first week, normal arm movement is allowed. However, keep your elbow below the level of your heart for the first month. This allows the lead wires to heal in the proper position. -No lifting above 10 pounds with the affected arm for 4 weeks. -No strenuous activities; this includes walking on a treadmill, golf, tennis, or aerobics for at least 4 weeks and until approved by your physician. -Avoid any sports and/or activities which may cause injury to your surgical site for a month. -Avoid isometric activities such as mowing grass, sweeping/scrubbing floor for 4 weeks. -Do NOT drive until after your wound check appointment and approved by the implanting Physician. -Do resume your regular activities as much as possible. Walking is a great and safe exercise. It helps you to regain your strenght after surgery. It is good for your heart health and it is also a great way to get out of the house. -It is safe to resume sexual activity as soon as you feel you are able and as long as there is no strain placed on the surgical site and/or affected arm for the first month. Special Instructions Pacemaker Safety Orders 1. You will receive a temporary ID card at the hospital when you are discharged, a permanent card from the certified nursing assistant will arrive in about 4-6 weeks. This ID card contains important information about your device. Carry your ID card with you at all times. We recommend purchasing a Medic Alert bracelet or necklace also. 2. Most common household items are safe to use when you have a pacemaker (these include hair dryers, electric bo/toothbrushes, toasters, curling irons, ovens, stoves/ranges, remote controls, handheld power tools, ect.). These items should be kept at least 6 inches away from your device while in operation. 3. Cellular phones are safe (use phones on opposite side of your device, and do not store phone in shirt pocket). 4. Microwave ovens and inductions ranges (ceramic/smooth top) are safe (keep the pacemaker at least 2 feet away while these appliances are in operation). 5. Avoid strong magnetic krause, and flying mcgee. (Examples: high security systems, large power transformers, ARC welders). 6. NO MRI SCANS (unless you have been told your device is MRI safe). 7. Notify all physicians that you have a pacemaker (including dentist, surgeons, eye-care transport nurse, and emergency personnel). 8. Call the office as soon as you are scheduled for any procedure/surgery. Encourage family members to become CPR certified, and keep emergency numbers posted close to an easily accessible telephone. Discharge Medications: Your medication list ASK your doctor about these medications ALPRAZolam 0.5 mg tablet Commonly known as: XANAX Take 1 tablet (0.5 mg total) by mouth 3 (three) times a day as needed for anxiety. cholecalciferol 2,000 unit tablet Commonly known as: VITAMIN D-3 take 1 tablet by oral route every day cyanocobalamin 100 mcg tablet Commonly known as: Vitamin B-12 digestive enzymes tablet ELIQUIS 5 mg tablet Generic drug: apixaban take 1 tablet by oral route 2 times every day fluticasone propionate 50 mcg/actuation nasal spray Commonly known as: FLONASE INHALE 2 SPRAY BY INTRANASAL ROUTE EVERY DAY IN EACH NOSTRIL lansoprazole 15 mg capsule Commonly known as: PREVACID magnesium gluconate 200 mg tablet vitamin C 1,000 mg tablet Generic drug: ascorbic acid Outpatient Follow-Up: Future Appointments Date Time Provider Department Center 12/10/2018 8:30 AM [facility], [facility] 12/24/2018 2:30 PM Ronald Castrejon MD [facility] Guanakito Holland MD [address] [place] [address] [place] [address] Guanakito Holland (Cardiology) Friday08/05/18 at 12:00 pm in the [place] office [facility] [address] [place] [address]; . Time Spent on Discharge: 35 minutes Voice recognition software Tred Direct was used dictate and transcribe this document. Hog Cutter variances may occur. Despite proofreading, typographical errors may occur. Jarrett Oquendo Jr., MD 07/30/2018 10:33 AM documented in this encounter Discharge Instructions * Discharge Instructions* Jose Ponce RN - 07/30/2018 11:09 AM CDT Images from the original note were not included. A-fib (Atrial Fibrillation) WHAT YOU NEED TO KNOW: A-fib may come and go, or it may be a long-term condition. A-fib can cause blood clots, stroke, or heart failure. These conditions may become life-threatening. It is important to treat and manage a-fib to help prevent a blood clot, stroke, or heart failure. DISCHARGE INSTRUCTIONS: Call 911 for any of the following: ?? You have any of the following signs of a heart attack: ?? Squeezing, pressure, or pain in your chest that lasts longer than 5 minutes or returns ?? Discomfort or pain in your back, neck, jaw, stomach, or arm ?? Trouble breathing ?? Nausea or vomiting ?? Lightheadedness or a sudden cold sweat, especially with chest pain or trouble breathing ?? You have any of the following signs of a stroke: ?? Numbness or drooping on one side of your face ?? Weakness in an arm or leg ?? Confusion or difficulty speaking ?? Dizziness, a severe headache, or vision loss Seek care immediately if: You have any of the following signs of a blood clot: ?? You feel lightheaded, are short of breath, and have chest pain. ?? You cough up blood. ?? You have swelling, redness, pain, or warmth in your arm or leg. Contact your feather trimmer or healthcare provider if: ?? Your heart rate is more than 110 beats per minute. ?? You have new or worsening swelling in your legs, feet, ankles, or abdomen. ?? You are short of breath, even at rest. ?? You have questions or concerns about your condition or care. Medicines: You may need any of the following: ?? Heart medicines help control your heart rate or rhythm. You may need more than one medicine to treat your symptoms. ?? Blood thinners help prevent blood clots. Examples of blood thinners include heparin and warfarin. Clots can cause strokes, heart attacks, and . The following are general safety guidelines to follow while you are taking a blood thinner: ?? Watch for bleeding and bruising while you take blood thinners. Watch for bleeding from your gumsor nose. Watch for blood in your urine and bowel movements. Use a soft washcloth on your skin, and a soft toothbrush to brush your teeth. This can keep your skin and gums from bleeding. If you shave,use an electric shaver. Do not play contact sports. ?? Tell your dentist and other healthcare providers that you take anticoagulants. Wear a bracelet or necklace that says you take this medicine. ?? Do not start or stop any medicines unless your healthcare provider tells you to. Many medicines cannot be used with blood thinners. ?? Tell your healthcare provider right away if you forget to take the medicine, or if you take too much. ?? Warfarin is a blood thinner that you may need to take. The following are things you should be aware of if you take warfarin. ?? Foods and medicines can affect the amount of warfarin in your blood. Do not make major changes to your diet while you take warfarin. Warfarin works best when you eat about the same amount of vitamin K every day. Vitamin K is found in green leafy vegetables and certain other foods. Ask for more information about what to eat when you are taking warfarin. ?? You will need to see your healthcare provider for follow-up visits when you are on warfarin. Youwill need regular blood tests. These tests are used to decide how much medicine you need. ?? Antiplatelets , such as aspirin, help prevent blood clots. Take your antiplatelet medicine exactly as directed. These medicines make it more likely for you to bleed or bruise. If you are told to take aspirin, do not take acetaminophen or ibuprofen instead. ?? Take your medicine as directed. Contact your healthcare provider if you think your medicine is not helping or if you have side effects. Tell him or her if you are allergic to any medicine. Keep a list of the medicines, vitamins, and herbs you take. Include the amounts, and when and why you take them. Bring the list or the pill bottles to follow-up visits. Carry your medicine list with you in case of an emergency. Follow up with your feather trimmer as directed: You will need regular blood tests and monitoring. Write down your questions so you remember to ask them during your visits. Manage A-fib: ?? Know your target heart rate. Learn how to take your pulse and monitor your heart rate. ?? Manage other health conditions. This includes high blood pressure, sleep apnea, thyroid disease,diabetes, and other heart conditions. Take medicine as directed and follow your treatment plan. ?? Limit or do not drink alcohol. Alcohol can make a-fib hard to manage. Ask your healthcare provider if it is safe for you to drink alcohol. A drink of alcohol is 12 ounces of beer, 5 ounces of wine, or 1?? ounces of liquor. ?? Do not smoke. Nicotine and other chemicals in cigarettes and cigars can cause heart and lung damage. Ask your healthcare provider for information if you currently smoke and need help to quit. E-cigarettes or smokeless tobacco still contain nicotine. Talk to your healthcare provider before you use these products. ?? Eat heart-healthy foods. Heart healthy foods will help keep your cholesterol low. These include fruits, vegetables, whole-grain breads, low-fat dairy products, beans, lean meats, and fish. Replacebutter and margarine with heart- healthy oils such as olive oil and canola oil. ?? Maintain a healthy weight. Ask your healthcare provider how much you should weigh. Ask him to help you create a weight loss plan if you are overweight. ?? Exercise for 30 minutes most days of the week. Ask your healthcare provider about the best exercise plan for you. ?? 2017 [employer] Information is for End User's use only and may not be sold, redistributed or otherwise used for commercial purposes. All illustrations and images included in CareNotes?? are the copyrighted property of [employer]. or [employer]. The above information is an environmental aide only. It is not intended as medical advice for individual conditions or treatments. Talk to your doctor, nurse or pharmacist before following any medical regimen to see if it is safe and effective for you. * Attachments The following attachments cannot be sent through Care Everywhere. * Diltiazem (By mouth) ([place]) * Pantoprazole (By mouth) ([place]) documented in this encounter Medications at Time of Discharge cholecalciferol (VITAMIN D-3) 2,000 unit tabletIndication s:Prevention of Vitamin D Deficiency take 1 tablet by oral route every day 90 3 12/06/2015 cyanocobalamin (Vitamin B-12) 100 mcg tabletIndication s:Prevention of Vitamin B12 Deficiency Take 10 tablets (1,000 mcg total) by mouth daily ALPRAZolam (XANAX) 0.5 mg tablet Take 1 tablet (0.5 mg total) by mouth 3 (three) times a day as needed for anxiety. 90 tablet 4 12/23/2017 9 apixaban (ELIQUIS) 5 mg tablet take 1 tablet by oral route 2 times every day 0 0 01/24/2016 3 ascorbic acid (VITAMIN C) 1,000 mg tablet Take 2 tablets (2,000 mg total) by mouth daily 3 digestive enzymes tablet Take by mouth daily 9 dilTIAZem XR (CARDIZEM CD,DILACOR XR) 240 mg 24 hr capsule Take 1 capsule (240 mg total) by mouth daily 30 capsule 11 07/31/2018 9 fluticasone (FLONASE) 50 mcg/actuation nasal spray INHALE 2 SPRAY BY INTRANASAL ROUTE EVERY DAY IN EACH NOSTRIL 16 g 11 04/11/2017 9 magnesium gluconate 200 mg tabletIndication s:hypomagnesemia 200 mg. 09/11/[address] (PROTONIX) 40 mg EC tablet Take 1 tablet (40 mg total) by mouth daily 30 tablet 07/30/2018 9 documented as of this encounter Ordered Prescriptions Prescription Sig Dispense Quantity Refills Last Filled Start Date End Date dilTIAZem XR (CARDIZEM CD,DILACOR XR) 240 mg 24 hr capsule Take 1 capsule (240 mg total) by mouth daily 30 capsule 11 07/31/[address] (PROTONIX) 40 mg EC tablet Take 1 tablet (40 mg total) by mouth daily 30 tablet 07/30/2018 9 documented in this encounter Discharge Disposition Disposition Code Departure Means Destination Discharge to home or self care documented in this encounter Progress Notes * Mercedes Zhang - 07/30/2018 9:41 AM CDT [facility] Nutrition Assessment NAME:Abena Giron :1940 AGE:78 y.o. SEX: female ADMISSION DATE:07/28/2018, CURRENT LOS is 1 days. ENCOUNTER DATE: 07/30/18 9:42 AM REASON for ASSESSMENT: Initial Nutrition Assessment DX: ATRIAL FIBRILLATION WITH RAPID VENTRICULAR RESPONSE ACUTE CORONARY SYNDROME Nutrition Screen What diet do you follow at home?: Regular but very healthy Have You Recently Lost Weight Without Trying?: No Poor Oral Intake for Four or More Days Prior to Admission: Yes (Comment)(patient has had nausea andvomiting ) Current diet order: Adult Diet Special; Low Fat, Low Chol, Low Na Pt intake is inconsistent. PO intakes: 50, 75% since advanced ALLERGIES: Codeine; Lisinopril; Morphine; Penicillins; Phenobarbital; Sotalol; Beta-blockers (beta-adrenergic blocking agts); and Diltiazem ASPEN Malnutrition Assessment: Nutrition Focused Physical Exam Notes: Nutrition Needs Calculations: Calculated Energy Needs Using Equations Weight Used for Equation Calculations (RD Determined): 75.4 kg (166 lb 3.6 oz) Weight: 75.4 kg (166 lb 3.6 oz) Height: 154.9 cm (5' 1 ) HintsoftDarvin Parselylandon Equation (Overweight or Obese Patients): 1171 Equation Chosen to Use by RD: Outright Activity Factor: 1.2 Stress Factor: 1.2 Total Energy Needs: 1686.24 kcal Temp: 36.1 ??C (97 ??F) Total Energy Needs + Fever Factor: 1686.24 Estimated Protein Needs Type of Weight Used for Estimated Protein : Current Protein Needs Based on g/k.0 Total Protein Estimated Needs (gm): 75.4 Kcal/kg Type of Weight Used for Estimated Kcals: Current Kcal/k Total Kcal/kg Estimated Needs : 1885 Estimated Fluid Needs Type of Weight Used for Estimated Fluid Needs: Current Fluid Needs Based on : 1 ml/kcal Total Fluid Estimated Needs: 1885 Estimated needs: ?? Total Kcal/kg Estimated Needs : 1885 based on Kcal/k. Type of Weight Used for Estimated Kcals: Current ?? [facility] Total Energy Needs: 1686.24 kcal using Stress Factor: 1.2 ?? [place] Total Energy Needs + Fever Factor: 1686.24 ?? Total Protein Estimated Needs (gm): 75.4 Protein Needs Based on g/k.0 Type of Weight Used for Estimated Protein : Current. ?? Total Fluid Estimated Needs: 1885 Fluid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 07/29/18 0008 SODIUM mmol/L 139 137 POTASSIUM PLASMA mmol/L 3.8 3.7 CHLORIDE mmol/L 104 100 CO2 mmol/L 25 24 BUN SERUM mg/dL 10 11 CREATININE mg/dL 0.66 0.77 GIE-LAX-KDFGIOA mL/min/1.73 m2 85 74 GLUCOSE mg/dL 119 117 CALCIUM mg/dL 9.0 9.3 ALBUMIN g/dL -- 4.1 PHOSPHORUS PLASMA mg/dL 3.5 -- Recent Labs Lab Units 07/29/18 0008 ALK PHOS Units/L 43 BILIRUBIN TOTAL mg/dL 0.5 TOTAL PROTEIN g/dL 6.7 ALT Units/L 30 AST Units/L 37 Recent Labs Lab Units 07/29/18 0626 07/29/18 0008 WBC K/cumm 7.5 9.4 HEMOGLOBIN g/dL 12.9 14.2 HEMATOCRIT % 37.1 41.8 PLATELETS K/cumm 180 228 Recent Labs Lab Units 07/29/18 0008 INR 1.13 Lab Results Component Value Date CHOL 169 07/29/2018 TRIG 154 (H) 07/29/2018 HDL 32 (L) 07/29/2018 LDL 142 (H) 12/09/2017 Lab Results Component Value Date TSH 0.88 07/29/2018 FREET4 0.92 09/28/2015 Lab Results Component Value Date BNP 81 02/10/2016 BNP 145 (H) 01/05/2014 BNP 73 09/28/2013 Testing: Cardiac Rhythm: Atrial fibrillation (07/29/18 0700) Xr Chest 1 View Result Date: 07/29/2018 NO ACTIVE CARDIOPULMONARY DISEASE. Electronically signed by: Daniel Crawford M.D. Results for orders placed or performed during the hospital encounter of 09/25/17 ECG 12 lead Result Value Ref Range Patient age 77 years Interpretation Text ATRIAL FIBRILLATION WITH RAPID VENTRICULAR RESPONSENONSPECIFIC ST & T-WAVE ABNORMALITYABNORMAL RHYTHM ECGPREVIOUS TRACIN05/16/2017 15.54 Ventricular Rate EKG/Min 144 /min P Wave Duration ms QRS-Interval (MSEC) 83 ms NH-Interval (MSEC) ms QT Interval 287 ms QTc 434 ms QTC Interval ms P Hassell deg QRS Hassell 10 deg T Hassell 31 deg Coronary angiography 12/29/2013: IMPRESSION 1. MODERATE CORONARY ARTERY DISEASE IN THIS RIGHT DOMINANT SYSTEM WITH WIDELY PATENT STENT NOTED INTHE MID TO DISTAL CIRCUMFLEX. THERE IS AT LEAST 40% STENOSIS DIFFUSELY IN THE OSTIAL TO PROXIMAL RCA WITH SIGNIFICANT PRESSURE DAMPENING. THIS MAY BE A SIGNIFICANT LESION. 2. NO MITRAL REGURGITATION. 3. NORMAL TO HYPERDYNAMIC GLOBAL LV FUNCTION WITH NO REGIONAL WALL MOTION ABNORMALITIES. THE PLAN IS TO GIVE HER SOME ANTISPASM AGENT SUCH IMDUR 60MG PO QID. WE WILL GET A NUCLEAR STUDY TO SEE IF THERE IS ANY FLOW ABNORMALITY IN THE INFERIOR WALL. IF SO, DR. ROJAS MAY BE ASKED TO INTERVENE TO THE OSTIUM OF THE RCA. I WILL DISCUSS THE FINDINGS WITH DR. JAMISON AND ALSO DR. ROJAS TOMORROW WHEN HE COMES IN. Jeff 02/01/2016: CONCLUSION 1. Normal left ventricular size and systolic function. 2. No left atrial appendage thrombus. Impression: 1. Atrial fibrillation with rapid ventricular response and dynamic ST segment depression suggestiveof ischemia 2. NSTEMI 3. Sick sinus syndrome 4. Known coronary artery disease prior PCI to circumflex December 2013 Plan: 1. DC amiodarone. Patient will not likely tolerate this in the future due to her sick sinus syndrome. 2. 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 3. ACS/NSTEMI likely a consequence of rapid AF. Patient has no activity related angina, symptoms only occur with AF. Jarrett Mathis DO 07/29/2018 7:38 AM documented in this encounter Nursing Notes * Watson Meyer RN - 07/30/2018 11:34 AM CDT Pt to dc home per md order. Pt verbalized understanding of dc instructions. Pt personal belognings present and accounted for per pt and daughter. Pt transferred via wheelchair to private car. No distress noted or voiced at dc. documented in this encounter ED Notes * Harjti Kovacs MD - 07/29/2018 12:10 AM CDTAssociated Order(s): ECG 12 lead [facility] Chief Complaint Patient presents with ??? Sore Throat ??? Earache (11:50 PM 07/28/2018) Abena Giron is a 78 y/o female with a h/o GERD who presents to the ED with waxing and waning throat and ear pain. Pain started a few days ago with symptoms worsening overtime. She also complains of left-sided neck pain and upper chest pressure discomfort since onset of sore throat. Denies fevers, chills, cough, dysphagia, or SOB. Pt admits she was on Prevacid to alleviate GERD symptoms but discontinued use 6 months prior on consult of PCP. Symptoms reminiscent of past GERD incidences. Pt has missed her last two doses of Eliquis. She also has recently gotten over flu-like symptoms and now has mild diarrhea and nausea but no more emesis. Pt hasn't eaten in 3-4 days. Denies dysuria, hematuria, and hematochezia. She believes these symptoms came from her alevism community as her fellow contacts were ill with similar complaints. Patient History Patient Active Problem List Diagnosis Date Noted ??? B12 deficiency 12/23/2017 ??? Atrial fibrillation with RVR (CMS/HCC) 09/25/2017 ??? Abdominal aortic aneurysm (AAA) without rupture (CMS/HCC) 06/25/2017 ??? Anxiety 03/12/2017 ??? Coronary artery disease involving [place] coronary artery of [place] heart without angina pectoris 12/25/2016 ??? Paroxysmal atrial fibrillation (CMS/HCC) 12/25/2016 ??? Chronic GERD 12/25/2016 ??? Hyperlipidemia 01/28/2013 Class: Chronic ??? Osteoarthritis [...] SURGICAL HISTORY 2016 Atrial Fibrillation: Cardiovascular Intervention Family History Problem Relation Age of Onset [...] Tobacco Use ??? Smoking status: Former Smoker ??? Smokeless tobacco: Never Used Substance Use Topics ??? Alcohol use: No ??? Drug use: No Social History Social History Narrative Agrees to blood/blood products: Y Agrees to blood/blood products: Y Review of Systems Review of Systems Constitutional: Negative for chills and fever. HENT: Positive for ear pain and sore throat. Negative for congestion and rhinorrhea. Eyes: Negative for pain. Respiratory: Negative for cough and shortness of breath. Cardiovascular: Positive for chest pain (upper chest pressure). Negative for leg swelling. Gastrointestinal: Positive for diarrhea and nausea. Negative for abdominal pain and vomiting. Genitourinary: Negative for difficulty urinating. Musculoskeletal: Positive for neck pain. Negative for myalgias. Skin: Negative for rash. Neurological: Negative for dizziness and headaches. Psychiatric/Behavioral: Negative for behavioral problems. Physical Exam ED Triage Vitals [07/28/18 2348] Temp Pulse Resp BP SpO2 36.6 ??C (97.9 ??F) 116 20 (!) 155/105 98 % Temp src Heart Rate Source Patient Position BP Location FiO2 (%) Temporal -- -- -- -- Physical Exam Constitutional: She is oriented to person, place, and time. She appears well- developed and well-nourished. HENT: Head: Normocephalic and atraumatic. + TMs normal bilaterally + Pharynx is non-erythematous + Tonsils without edema or exudate + Uvula midline Eyes: Pupils are equal, round, and reactive to light. EOM are normal. Neck: Normal range of motion. Cardiovascular: Normal rate. An irregularly irregular rhythm present. Pulmonary/Chest: Effort normal. Abdominal: Soft. Abdomin Exam Unremarkable: + Soft; non-tender, and non-distended No masses palpable Musculoskeletal: Normal range of motion. No edema Neurological: She is alert and oriented to person, place, and time. Skin: Skin is warm and dry. Psychiatric: She has a normal mood and affect. Her behavior is normal. Nursing note and vitals reviewed. MDM MDM Number of Diagnoses or Management Options Acute coronary syndrome (CMS/HCC): Atrial fibrillation with rapid ventricular response (CMS/HCC): Amount and/or Complexity of Data Reviewed Clinical lab tests: ordered and reviewed Tests in the radiology section of CPT??: ordered and reviewed Independent visualization of images, tracings, or specimens: yes Risk of Complications, Morbidity, and/or Mortality Presenting problems: moderate Diagnostic procedures: moderate Management options: moderate General comments: The patient is intolerant of beta blockers and calcium blockers. Will start amiodarone. Will keep patient NPO. Patient Progress Patient progress: stable BP 107/77 Pulse (!) 139 Temp 36.6 ??C (97.9 ??F) (Temporal) Resp 21 Ht 165.1 cm (5' 5 ) Wt 70.3 kg (155 lb) LMP (LMP Unknown) SpO2 99% BMI 25.79 kg/m?? Labs Reviewed PRO B-TYPE NATRIURETIC PEPTIDE - Abnormal Result Value NT-proBNP 2,810 (*) Narrative: TROPONIN T - Abnormal Troponin T 0.36 (*) Narrative: DIFFERENTIAL AUTO - Abnormal Neutrophil absolute 4.5 Immature granulocyte absolute 0.0 Lymphocytes absolute 4.0 (*) Monocyte absolute 0.7 Eosinophils absolute 0.1 Basophils, abs 0.0 Neutrophils 47.6 Immature granulocytes 0.5 Lymphocytes 42.8 Monocytes 7.2 Eosinophils 1.4 Basophils 0.5 Narrative: LIPID PANEL - Abnormal Cholesterol 169 Triglycerides 154 (*) HDL 32 (*) LDL, calculated 106 Non-HDL Cholesterol 137 Chol/HDL ratio 5 Narrative: This lipid panel was automatically ordered due to a Troponin-T. The dietary status of the patient at the collection time should be correlated with the lipid results. (Reflex test added by rule [id number]; ag1) APTT aPTT 31.1 Narrative: CBC WITH AUTO DIFFERENTIAL WBC 9.4 Hgb 14.2 Hct 41.8 Plt 228 MPV 10.9 RBC 4.56 MCV 91.7 MCH 31.1 MCHC 34.0 RDW CV 12.7 RDW SD 42.3 NRBC Abs 0.00 Narrative: COMPREHENSIVE METABOLIC PANEL Sodium 137 Potassium, pl 3.7 Chloride 100 CO2 24 Anion Gap 13 BUN 11 Creatinine 0.77 Glucose 117 Calcium 9.3 Bilirubin, total 0.5 Protein, pl 6.7 Albumin 4.1 Alk phos 43 ALT 30 AST 37 Narrative: MAGNESIUM Magnesium 1.8 Narrative: PROTIME-INR PT 12.8 INR 1.13 Narrative: EGFR GFR 74 Narrative: XR Chest 1 View ED Interpretation Neg. ECG 12 lead Date/Time: 07/29/2018 12:21 AM Performed by: Harjit Kovacs MD Authorized by: Harjit Kovacs MD Comments: Afib; Rate 136; lateral ST depression ED Course as of Jul 29 108 Time: 07/29 16 Comment: Pre-hypertension/Hypertension: The patient has been informed that they may have pre-hypertension or Hypertension based on a blood pressure reading in the Emergency Department. I recommend that the patient call the primary care provider listed on their discharge instructions or a physician of their choice this week to arrange follow up for further evaluation of possible pre- hypertension or Hypertension. By: Melvi Miguel Time: 07/29 104 Comment: Care transferred to Dr. Wolfe. By: Harjit Kovacs MD Time: 07/29 106 Comment: Discussed with Mara Power for Dr. Huerta By: Harjit Kovacs MD Atrial fibrillation with rapid ventricular response (CMS/HCC) Acute coronary syndrome (CMS/HCC) This note is prepared by Melvi Miguel and Liseth Keenan acting as a scribe for Davonte Kovacs MD. Signed by Melvi Ayers and Liseth Keenan, 12:18 AM 07/29/2018. I, Davonte Kovacs MD, have personally perfomed the services described in the document, as recorded by the scribe in my presence, and it accurately and completely records my words and actions. Liseth Keenan 07/29/18 0033 Harjit Kovacs MD 07/29/18 0109 * Karina Paniagua RN - 07/28/2018 11:46 PM CDT Pt into ER with report of sore throat and ear pressure onset of 2 days [employer]. Pt reports hx of acid reflux, thinks this is why her throat hurts. Pt has already been seen at urgent care, they did nothing. documented in this encounter Miscellaneous Notes * Plan of Care - Carol Ann Friedman RN - 07/30/2018 3:33 AM CDT Goals: Clinical Goals for the Shift: Pt to remain hemodynamically stable with a controlled heart rate. Remain free from nausea. No falls. Summary: VSS. Heart monitor showing A fib in the 80's-110's. No complaints of chest pain or nausea.MD notified about elevated troponin level of 0.74. EKG ordered for the morning. Pacemaker insertionsite dressing remains clean, dry, and intact. Left arm remains in sling. Pt has rested quietly per bed with no other complaints. Will continue to monitor. * Plan of Care - Lucy Jin RN - 07/29/2018 4:31 PM CDT Problem: Health Behavior: Goal: Understanding of discharge needs will improve Outcome: Progressing Problem: Cardiac: Goal: Complications related to the disease process, condition or treatment will be avoided or minimized Outcome: Progressing Problem: Lack of Knowledge: Goal: Ability to state signs and symptoms to report to health care provider will improve Outcome: Progressing Goal: Knowledge of the prescribed therapeutic regimen will improve Outcome: Progressing Goal: Knowledge of disease or condition will improve Outcome: Progressing Problem: Fluid Volume: Goal: Ability to achieve and maintain adequate urine output will improve Outcome: Progressing Problem: Activity: Goal: Ability to tolerate increased activity will improve Outcome: Progressing Goal: Ability to participate in self-care as condition permits will improve Outcome: Progressing Problem: Coping: Goal: Level of anxiety will decrease Outcome: Progressing Problem: Safety: Goal: Ability to remain free from injury will improve Outcome: Progressing Goal: Will show no signs and symptoms of excessive bleeding Outcome: Progressing Problem: Cardiac: Goal: Ability to maintain an adequate cardiac output will improve Outcome: Not Progressing Goal: Will show no evidence of cardiac arrhythmias Outcome: Not Progressing Problem: Lack of Knowledge: Goal: Ability to identify and utilize available resources and services will improve Outcome: Not Progressing Goals: Clinical Goals for the Shift: Control of heart rate and conversion to normal rhythm, Relief of reflux Summary: Pacer inserted this shift. To resume anticoagulation tomorrow. Monitor remains At fib withheart rate aroun 100, one episode of nausea, no c/o of heartburn * Plan of Care - Jeaneth Dawson RN - 07/29/2018 2:32 PM CDT Patient lives at home alone. She is independent with mobility and adls. No devices used. No barriers to discharge. Plan is to return to her home. 6 clicks = 24. * Assessment & Plan Note - Dinah Anguiano MD - 07/29/2018 4:51 AM CDT Associated Problem(s): NSTEMI (non-ST elevated myocardial infarction) (CMS/HCC) (HCC) (Resolved 02/01/2020) Patient currently in AFib with RVR. Suspect elevated troponins are due to demand ischemia. Will continue on telemetry monitoring Trend troponins Repeat EKG in a.m. Cardiology consult Keep the patient NPO Patient currently on Eliquis oral anticoagulation Patient denies any chest pain * Assessment & Plan Note - Dinah Anguiano MD - 07/29/2018 4:49 AM CDT Associated Problem(s): Chronic GERD Start on IV Protonix 40 mg b.i.d. * Assessment & Plan Note - Dinah Anguiano MD - 07/29/2018 4:49 AM CDT Associated Problem(s): Anxiety Will continue with Xanax 0.5 mg t.i.d. As needed. * Assessment & Plan Note - Dinah Anguiano MD - 07/29/2018 4:47 AM CDT Associated Problem(s): Hyperlipidemia Not on statin * Assessment & Plan Note - Dinah Anguiano MD - 07/29/2018 4:44 AM CDT Associated Problem(s): Atrial fibrillation with rapid ventricular response (CMS/HCC) (HCC) (Resolved 02/01/2020) Continue with amiodarone drip. Patient completed a dose of digoxin. Cardiology consult in a.m. Will obtain echo cardiac in a.m. Telemetry monitoring Restart Eliquis * Plan of Care - Abigail Corcoran RN - 07/29/2018 4:42 AM CDT Goals: decrease HR , convert back into SR , pain control, vital signs stable Summary: Patient remains in a-fib with HR 100-120. Patient given tylenol for stomach pain. NPO for cardiology consult today. Patient independent in the room. Problem: Health Behavior: Goal: Understanding of discharge needs will improve Outcome: Progressing Problem: Lack of Knowledge: Goal: Ability to state signs and symptoms to report to health care provider will improve Outcome: Progressing Goal: Knowledge of the prescribed therapeutic regimen will improve Outcome: Progressing Problem: Fluid Volume: Goal: Ability to achieve and maintain adequate urine output will improve Outcome: Progressing Problem: Cardiac: Goal: Ability to maintain an adequate cardiac output will improve Outcome: Not Progressing documented in this encounter Plan of Treatment Not on file documented as of this encounter Procedures Procedure Name Priority Date/Time Associated Diagnosis Comments XR CHEST PA LATERAL 2 VIEWS Routine 07/30/2018 9:47 AM CDT EGFR Routine 07/30/2018 6:55 AM CDT CBC WITHOUT DIFFERENTIAL Routine 07/30/2018 6:55 AM CDT TROPONIN T Timed 07/30/2018 6:55 AM CDT PHOSPHORUS Routine 07/30/2018 6:55 AM CDT MAGNESIUM Routine 07/30/2018 6:55 AM CDT BASIC METABOLIC PANEL Routine 07/30/2018 6:55 AM CDT ECG 12-LEAD Routine 07/30/2018 6:22 AM CDT Atrial fibrillation with rapid ventricular response (CMS/HCC) TROPONIN T Timed 07/30/2018 12:00 AM CDT TROPONIN T Timed 07/29/2018 6:10 PM CDT XR CHEST 1 VIEW STAT 07/29/2018 4:35 PM CDT IMPLANT DUAL CHAMBER PPM SYSTEM W/ DUAL ELECTRODES (GEN AND LEADS, NEW OR REPLACE) Routine 07/29/2018 2:24 PM CDT TROPONIN T Timed 07/29/2018 12:08 PM CDT TRANSTHORACIC ECHO (TTE) COMPLETE W DOPPLER/CF WO CONTRAST Routine 07/29/2018 11:36 AM CDT EGFR Routine 07/29/2018 6:26 AM CDT THYROID FUNCTION CASCADE Routine 07/29/2018 6:26 AM CDT CBC WITHOUT DIFFERENTIAL Routine 07/29/2018 6:26 AM CDT TROPONIN T Timed 07/29/2018 6:26 AM CDT PHOSPHORUS Routine 07/29/2018 6:26 AM CDT MAGNESIUM Routine 07/29/2018 6:26 AM CDT HEMOGLOBIN A1C Routine 07/29/2018 6:26 AM CDT BASIC METABOLIC PANEL Routine 07/29/2018 6:26 AM CDT ECG 12-LEAD Routine 07/29/2018 5:54 AM CDT XR CHEST 1 VIEW ED 07/29/2018 12:17 AM CDT ECG 12-LEAD Routine 07/29/2018 12:14 AM CDT EGFR STAT 07/29/2018 12:08 AM CDT DIFFERENTIAL AUTO STAT 07/29/2018 12: 08 AM CDT PRO B-TYPE NATRIURETIC PEPTIDE STAT 07/29/2018 12:08 AM CDT CBC WITH AUTO DIFFERENTIAL STAT 07/29/2018 12:08 AM CDT APTT STAT 07/29/2018 12:08 AM CDT PROTIME-INR STAT 07/29/2018 12:08 AM CDT TROPONIN T STAT 07/29/2018 12:08 AM CDT MAGNESIUM Routine 07/29/2018 12:08 AM CDT LIPID PANEL STAT 07/29/2018 12:08 AM CDT COMPREHENSIVE METABOLIC PANEL STAT 07/29/2018 12:08 AM CDT documented in this encounter Results * XR Chest PA Lateral 2 View (07/30/2018 9:47 AM CDT) Anatomical Region Laterality Modality Body, Chest N/A Computed Radiogr aphy 07/30/2018 10:0 9 AM CDT Impressions 07/30/2018 10:11 AM CDT 1. ??LEFT SUBCLAVIAN PACEMAKER WITH LEADS APPEARING UNCHANGED. 2. ??NO ACTIVE DISEASE. Electronically signed by: Jesus Celaya M.D. Narrative 07/30/2018 10:11 AM CDT XR CHEST PA LATERAL 2 VIEWS HISTORY: Arrhythmia post pacemaker placement. COMPARISON: 07/29/2018 FINDINGS: Heart size remains normal. ??There is a left subclavian pacemaker with leads in the right atrium and right ventricle as before. ??Lungs remain clear with no pneumothorax. ??Detail on the lateral limited as the patient's arm is at her side. ??Cholecystectomy clips noted. Procedure Note Jesus Celaya MD - 07/30/2018 XR CHEST PA LATERAL 2 VIEWS HISTORY: Arrhythmia post pacemaker placement. COMPARISON: 07/29/2018 FINDINGS: Heart size remains normal. There is a left subclavian pacemaker with leads in the right atrium and right ventricle as before. Lungs remain clear with no pneumothorax. Detail on the lateral limited as the patient's arm is at her side. Cholecystectomy clips noted. IMPRESSION: 1. LEFT SUBCLAVIAN PACEMAKER WITH LEADS APPEARING UNCHANGED. 2. NO ACTIVE DISEASE. Electronically signed by: Jesus Celaya M.D. us Guanakito Holland MD IMG XR PROCEDURES Final Resul t * eGFR (07/30/2018 6:55 AM CDT) eGFR 59 mL/min/1.7 3 m2 [facility] (OG) Comment: Interpretive Data Reference Interval Normal ?>/= 90 mL/min/1.73m2 Mildly decreased* ? 60 - 89 mL/min/1.73m2 Mildly to moderately decreased ?45 - 59 mL/min/1.73m2 Moderately to severely decreased ??30 - 44 mL/min/1.73m2 Severely decreased ?15 - 29 mL/min/1.73m2 Kidney Failure ?< 15 ??mL/min/1.73m2 *Relative to young adult level If -Serbian multiply value by 1.16. Estimated glomerular filtration [...] was last reviewed 2015. Blood specimen (specimen) 07/30/2018 6:55 AM CDT 07/30/2018 7:06 AM CDT Narrative [facility] ([facility]) - 07/30/2018 8:47 AM CDT us Dinah Anguiano MD LAB BLOOD ORDERABLES Final Re sult [facility] (OG) 1 [facility] Department [place] [address] * (ABNORMAL) Troponin T (07/30/2018 6:55 AM CDT) [facility] Troponin T 0.67(C) 0.00 - 0.01 ng/mL [facility]REW JUAREZ (OG) Comment: Consistent with previous critical value Interpretive Data Reference ranges for children <18 years of age have not been established. - > or = 18 years: Serial determinations are recommended for the diagnosis of myocardial infarction. ??Temporal rise and fall are consistent with myocardial infarction when at least one value is above the 99th percentile upper reference limit for troponin assay. ??Journal of the [place] [employer] 2012;60:1581-98. Current Interpretive Data Last Revised Date: 2017. Blood specimen (specimen) 07/30/2018 6:55 AM CDT 07/30/2018 7:06 AM CDT Narrative ANDREW ANN (OG) - 07/30/2018 9:11 AM CDT us Dinah Anguiano MD LAB BLOOD ORDERABLES Final Re sult ANDREW JUAREZ ([place]) 1 [facility] [place] [address] * CBC without differential (07/30/2018 6:55 AM CDT) [facility] WBC 6.9 3.8 - 9.9 K/cumm [facility] ([facility]) Hgb 12.4 11.9 - 15.5 g/dL [facility] ([facility]) Hct 36.1 35.6 - 45.5 % [facility] ([facility]) Plt 175 150 - 400 K/cumm [facility] ([facility]) MPV 10.5 9.1 - 12.3 fL [facility] ([facility]) RBC 3.95 3.90 - 5.20 M/cumm [facility] ([facility]) MCV 91.4 81.3 - 96.4 fL [facility] ([facility]) MCH 31.4 27.1 - 33.3 pg [facility] ([facility]) MCHC 34.3 32.3 - 35.7 g/dL [facility] ([facility]) RDW CV 13.0 11.1 - 14.9 % [facility] ([facility]) RDW SD 42.9 35.7 - 48.1 fL [facility] NRBC abs 0.00 0.00 - 0.01 K/cumm [facility] ([facility]) Blood specimen (specimen) 07/30/2018 6:55 AM CDT 07/30/2018 7:06 AM CDT Narrative [facility] ([facility]) - 07/30/2018 7:12 AM CDT us Dinah Agnuiano MD LAB BLOOD ORDERABLES Final Re sult [facility] ([facility]) 1 [facility] [place] [address] * Basic metabolic panel (07/30/2018 6:55 AM CDT) Sodium 139 135 - 145 mmol/L [facility] ([facility]) Potassium, pl 3.9 3.3 - 4.9 mmol/L [facility] ([facility]) Chloride 105 97 - 110 mmol/L [facility] CO2 24 22 - 32 mmol/L [facility] ([facility]) Anion gap 10 2 - 15 mmol/L [facility] ([facility]) BUN 11 8 - 25 mg/dL [facility] (OG) Creatinine 0.93 0.60 - 1.10 mg/dL [facility] Glucose 108 70 - 199 mg/dL [facility] ([facility]) Comment: Interpretive Data Fasting glucose >/= [...] Calcium 8.8 8.5 - 10.3 mg/dL [facility] ([facility]) Blood specimen (specimen) 07/30/2018 6:55 AM CDT 07/30/2018 7:06 AM CDT Narrative [facility] ([facility]) - 07/30/2018 8:47 AM CDT Dinah Anguiano MD LAB BLOOD ORDERABLES Final Re sult [facility] ([facility]) 1 [facility] [employer] [place] [address] * Magnesium (07/30/2018 6:55 AM CDT) Magnesium 1.8 1.6 - 2.4 mg/dL [facility] ([facility]) Blood specimen (specimen) 07/30/2018 6:55 AM CDT 07/30/2018 7:06 AM CDT Narrative [facility] ([facility]) - 07/30/2018 8:47 AM CDT Dinah Anguiano MD LAB BLOOD ORDERABLES Final Re sult Performing Organization Address [facility] Co de Phone Number [facility] ([facility]) [address] [place] [address] [employer] [place] [address] * Phosphorus (07/30/2018 6:55 AM CDT) Phosphorus, pl 3.7 2.3 - 4.5 mg/dL [facility] ([facility]) Blood specimen (specimen) 07/30/2018 6:55 AM CDT 07/30/2018 7:06 AM CDT Narrative [facility] ([facility]) - 07/30/2018 8:47 AM CDT Dinah Anguiano MD LAB BLOOD ORDERABLES Final Re sult [facility] ([facility]) 1 [facility] [employer] [place] [address] * ECG 12 lead (07/30/2018 6:22 AM CDT) 07/30/2018 6:22 AM CDT Narrative [facility] - 07/30/2018 9:38 AM CDT Vent Rate: 101 bpm RR Interval: 593 msec [place] Interval: 0 msec QRS Duration: 97 msec QT Interval: 376 msec QTC Interval: 434 msec P-R-T Hassell: 0 - 32 - -2 degrees ATRIAL FIBRILLATION WITH RAPID VENTRICULAR RESPONSE MODERATE ST DEPRESSION [0.05+ mV ST DEPRESSION] ABNORMAL ECG Compared to 07/29/2018 no change Electronically Signed By: Dr Jarrett Mathis us Dinah Anguiano MD ECG ORDERABLES Final Result [facility] [employer] * (ABNORMAL) Troponin T (07/30/2018 12:00 AM CDT) Troponin T 0.74(C) 0.00 - 0.01 ng/mL ANDREW JUAREZ (OG) Comment: Consistent with previous critical value Interpretive Data Reference ranges for children <18 years of age have not been established. - > or = 18 years: Serial determinations are recommended for the diagnosis of myocardial infarction. ??Temporal rise and fall are consistent with myocardial infarction when at least one value is above the 99th percentile upper reference limit for troponin assay. ??Journal of the [employer] College [employer]iology 2012;60:1581-98. Current Interpretive Data Last Revised Date: 2017. Blood specimen (specimen) 07/30/2018 07/30/2018 12:05 AM CDT Narrative ANDREW JUAREZ (OG) - 07/30/2018 12:33 AM CDT us Dinah Anguiano MD LAB BLOOD ORDERABLES Final Re sult ANDREW JUAREZ (OG) 1 [facility] [place] [address] * (ABNORMAL) Troponin T (07/29/2018 6:10 PM CDT) Troponin T 0.59(C) 0.00 - 0.01 ng/mL ANDREW JUAREZ ([place]) Comment: Critical Result called to and read back by luis fernando braun [facility], DATE: 2018-07-29 18:34:06 BY: torie rosario Interpretive Data Reference ranges for children <18 years of age have not been established. - > or = 18 years: Serial determinations are recommended for the diagnosis of myocardial infarction. ??Temporal rise and fall are consistent with myocardial infarction when at least one value is above the 99th percentile upper reference limit for troponin assay. ??Journal of the [employer] College [employer]iology 2012;60:1581-98. Current Interpretive Data Last Revised Date: 2017. Blood specimen (specimen) 07/29/2018 6:10 PM CDT 07/29/2018 6:11 PM CDT Narrative CELYOSCAR JUAREZ (OG) - 07/29/2018 6:34 PM CDT us Dinah Anguiano MD LAB BLOOD ORDERABLES Final Re sult ANDREW ANN ([place]) 1 [facility] [place] [address] * X-ray chest 1 view (07/29/2018 4:35 PM CDT) Anatomical Region Laterality Modality Body, Chest N/A Computed Radiogr aphy 07/29/2018 4:38 PM CDT Impressions 07/29/2018 4:40 PM CDT INTERVAL PLACEMENT OF LEFT SUBCLAVIAN PACEMAKER WITH LEADS IN THE RIGHT ATRIUM AND RIGHT VENTRICLE WITH NO PNEUMOTHORAX. Electronically signed by: Jesus Celaya M.D. Narrative 07/29/2018 4:40 PM CDT XR CHEST 1 VIEW HISTORY: Arrhythmia. ??Placement of pacemaker. COMPARISON: 08/10/2018 FINDINGS: In the interval a left subclavian pacemaker has been placed with leads in the right atrium and right ventricle. ??Heart size is normal. ??Lungs clear. ??There is no pneumothorax. Procedure Note Jesus Celaya MD - 07/29/2018 XR CHEST 1 VIEW HISTORY: Arrhythmia. Placement of pacemaker. COMPARISON: 08/10/2018 FINDINGS: In the interval a left subclavian pacemaker has been placed with leads in the right atrium and right ventricle. Heart size is normal. Lungs clear. There is no pneumothorax. IMPRESSION: INTERVAL PLACEMENT OF LEFT SUBCLAVIAN PACEMAKER WITH LEADS IN THE RIGHT ATRIUM AND RIGHT VENTRICLE WITH NO PNEUMOTHORAX. Electronically signed by: Jesus Celaya M.D. us Guanakito Holland MD IMG XR PROCEDURES Final Resul t * IMPLANT DUAL CHAMBER PPM SYSTEM W/ DUAL ELECTRODES (GEN AND LEADS, NEW OR REPLACE) (07/29/2018 2:24PM CDT) Anatomical Region Laterality Modality X-Ray Angiograph y 07/29/2018 Narrative 07/30/2018 10:12 AM CDT Fi[employer]tt Job ID: [id number] Fi[employer]tt Document ID: [id number] Dictated date/time: [id number] CARDIOLOGY PROCEDURE NOTE DATE OF PROCEDURE 29 Jul 2018 INDICATION ABENA GIRON IS A 78-YEAR-OLD FEMALE WITH SICK SINUS SYNDROME. ??DR. MATHIS HAS NOTED FAST HEARTBEATS IN ATRIAL FIBRILLATION FOLLOWED BY SLOW HEARTBEATS IN ATRIAL FIBRILLATION WHEN GIVEN RATE CONTROLLING MEDICATION. ??HE REQUESTED A DUAL-CHAMBER PACEMAKER IMPLANTATION for this patient. ??A LOOP RECORDER WAS PLACED BY DR. CAMARENA SEVERAL YEARS AGO AND THIS WILL BE REMOVED. ??THE PATIENT UNDERSTANDS THE RISKS OF THE PROCEDURE TO INCLUDE THE FOLLOWING BUT NOT LIMITED TO THE FOLLOWING: ?? Pain, bleeding, myocardial perforation, lead dislodgement, infection, vascular problems, pneumothorax, arterial stick, etc. ??Radiation exposure also discussed with the patient. PROCEDURE The patient was brought down to the cardiac lab support technician where she was prepared in the usual fashion. ??There was continuous monitoring of O2 saturation, blood pressure, heart rate and EKG. ??When well sedated, 1% lidocaine was given to the left infraclavicular region. ??Access to the left subclavian vein was obtained on the . ??A J-tipped guidewire was then placed into the inferior vena cava under fluoroscopy. ??This particular maneuver confirmed venous location. ??I then placed a sheath over the wire. ??I then placed 2 wires through the sheath and removed the sheath. ??I then re-loaded each wire with a separate sheath. ??Through the 1st sheath, I placed a 53 cm tined lead, and that 1st sheath was peeled away. ??Through the 2nd sheath, I placed a 45 cm tined lead, and the 2nd sheath was peeled away. ??The longer lead was then placed into the right ventricle using a curved stylet. ??Without the stylet, it fell into the floor of the right ventricular apex on its own. ??Nice heel was placed and ?? good numbers noted in the ventricle. ??There was an R-wave of 10 mV, RV pace impedance of 819 ohms and RV threshold 0.8 V at 0.4 millisecond. ?? That RV lead was secured to the prepectoral fascia with 2-0 GI silk sutures. ??The RA lead was then placed in the right atrial appendage by pulling out the stylet. ??Nice windshield wiping motion was noted there. ?? Good numbers noted in the atrium with a P-wave sensing of anywhere from 0.5 mV to 1 mV and atrial pace impedance of 526 ohms. ??That atrial lead was secured to the prepectoral fascia with 2-0 GI silk sutures. ??Both leads were then connected to the new pulse generator. ??This is a Smart [employer] Edora 8 DR-T device. ??Wirelessly, it was noted to be functioning quite well. ??All bleeding points were controlled by electrocautery. ??The pocket was flushed multiple times with sterile antibiotic solution. ??The entire system fit nicely in the pocket. ??There was no visual indication of severe lead angulation in the pocket. ??Final fluoroscopy of the pocket also showed no severe lead angulation in the pocket. ??No retained sponges. Nice heels noted in both leads in the right atrium. Sponge count, needle count and instrument count were correct before I closed the pocket. ??Pocket was then closed in 2 layers. ??Deepest layer was subcutaneous and this was closed with multiple interrupted sutures of 2-0 Vicryl. ??Most superficial layer was subcuticular and this was closed with a running 4-0 Vicryl subcuticular stitch. ??This was then followed by Super Glue and then island dressing. We then addressed the loop recorder. ??The loop recorder site was redraped after being cleaned separately. ??1% lidocaine was given to the old scar. ?? Using a combination of sharp and blunt dissection, I was able to access the loop recorder. ??Using a hemostat, I was able to pull it out in its entirety. ??The wound was then closed subcutaneously using several stitches of 2-0 Vicryl. ??The skin was closed with several Steri-Strips. ??This was then closed also with a dry sterile dressing. Hopefully she will go home tomorrow if she continues to do well. ??Chest x-ray is pending. ??Will give her some IV vancomycin to reduce the chance of infection postoperatively. JOB ID/VF JOB ID: ??[id number] us Guanakito Holland MD CV ELECTROPHYSIOLOGY PROCS Fi nal Result * (ABNORMAL) Troponin T (07/29/2018 12:08 PM CDT) Pathologist [facility] Troponin T 0.40(C) 0.00 - 0.01 ng/mL ANDREW JUAREZ ([place]) Comment: Consistent with previous critical value Interpretive Data Reference ranges for children <18 years of age have not been established. - > or = 18 years: Serial determinations are recommended for the diagnosis of myocardial infarction. ??Temporal rise and fall are consistent with myocardial infarction when at least one value is above the 99th percentile upper reference limit for troponin assay. ??Journal of the [place] College of Cardiology 2012;60:1581-98. Current Interpretive Data Last Revised Date: 2017. Blood specimen (specimen) 07/29/2018 12:08 PM CDT 07/29/2018 12:19 PM CDT Narrative ANDREW JUAREZ ([place]) - 07/29/2018 12:50 PM CDT Dinah Anguiano MD LAB BLOOD ORDERABLES Final Re sult ANDREW JUAREZ ([place]) [address] [place] [address] [place] [address] * TRANSTHORACIC ECHO (TTE) COMPLETE W DOPPLER/CF WO CONTRAST (07/29/2018 11:36 AM CDT) Anatomical Region Laterality Modality Ultrasound 07/29/2018 8:36 AM CDT Narrative 07/29/2018 3:[address] PM [address]T [address] [place] [address] Echocardiogram Report Patient Name: ABENA GIRON : 1940 Study Date: 07/29/2018 08:36:23 Gender: F 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 Indications: Atrial Fibrillation. Measurements: 2D/M Mode ?Doppler ? Measurement ?Value ?Normal Range ? Measurement ?Value ?Normal Range ? EF Teich MM ?45.0 ? [ 55.0 - 70.0 ] percent ?MALCOLM Vmax ? 1.59 ? [ 2.00 - 4.00 ] cm2 ? LVIDd MM ? 5.38 ? [ 3.90 - 5.30 ] cm ? AV Mean PG ? 3 ?[ 2 - 4 ] mmHg ? LVIDs MM ? 4.16 ? [ 2.30 - 3.90 ] cm ? AV Peak Arslan ?1.24 ? [ 1.00 - 1.70 ] m/s ? LVPWd MM ? 1.18 ? [ 0.60 - 1.00 ] cm ? AV VTI ? 23.69 ?cm ? IVSd MM ?1.11 ? [ 0.60 - 0.90 ] cm ? LVOT Diam ?1.85 ? [ 1.70 - 2.10 ] cm ? LA Dimension 2D ?4.13 ? [ 2.70 - 3.80 ] cm ? LVOT Peak Arslan ?0.61 ? [ 0.70 - 1.10 ] m/s ? AoR Diam MM ?2.22 ? [ 2.60 - 3.70 ] cm ? LVOT VTI ? 12.27 ?[ 20.00 - 30.00 ] cm ? ACS MM ? 1.18 ? cm ? MV E Peak Arslan ?0.89 ? [ 0.60 - 1.30 ] m/s ? MV A Peak Arslan ?0.37 ? [ 1.00 - 1.20 ] m/s ? MV Mean PG ? 1 ?[ <= 5 ] mmHg ? MV PHT ? 44 ? [ 20 - 100 ] msec ? MVA ?5.00 ? MV Decel Time ?151 ?[ 104 - 258 ] msec ? PV Peak Arslan ?0.64 ? [ 0.40 - 0.80 ] m/s ? TR Peak Arslan ?1.90 ? [ 1.00 - 2.80 ] m/s ? TR Peak PG ? 14 ? mmHg ? RVSP ? 24.00 ?[ 10.00 - 36.00 ] mmHg ? E' ? 0.08 ? E/E' ? 11.82 ? PA Pressure ?14.00 ?[ 10.00 - 36.00 ] mmHg ? Findings: Atrial Septum: Normal atrial septum. Left Ventricle: Irregular rhythm. Mild concentric left ventricular hypertrophy. Mild global left ventricular systolic dysfunction. Ejection fraction is visually estimated at 40 to 45 %. Left Atrium: There is mild enlargement of left atrium. Right Ventricle: Normal right ventricular size. Right Atrium: The right atrium is normal in size. Aortic Valve: Normal structure of the aortic valve. Mitral Valve: Normal structure of the mitral valve. Moderate mitral valve regurgitation. Pulmonic Valve: Pulmonic valve not well visualized. Tricuspid Valve: Normal structure of the tricuspid valve. Trivial regurgitation in the tricuspid valve. Pericardium: Normal pericardium with no significant pericardial effusion. Aorta: Normal aortic root. IVC: Normal size and no respiratory collapse consistent with elevated right atrial pressure (5-10 mmHg). Conclusions: Irregular rhythm. Mild concentric left ventricular hypertrophy. Mild global left ventricular systolic dysfunction. Ejection fraction is visually estimated at 40 to 45 %. Normal structure of the mitral valve. Moderate mitral valve regurgitation. Normal structure of the aortic valve. Normal structure of the tricuspid valve. Trivial regurgitation in the tricuspid valve. Electronically Signed By: Dr Guanakito Holland 2018-07-29 15:00:34 CDT Procedure Note Guanakito Holland MD - 07/29/[address] [place] [address] Echocardiogram Report Patient Name: ABENA GIRONPatient ID: [id number] : [id number] Date: 07/29/2018 08:36:23 Gender: FAccession #: [id number] Tech: NPLocation: [id number] Ref.Provider: Natanael OQUENDO(Cm): 155 BSA: 1.79Weight(Kg): 74.4 Quality: Technically Difficult StudyOrder Provider: Avagyan Procedures: Echocardiographic Report: Transthoracic echocardiogram with complete 2D, M-Mode, and color Dopplerexamination. Indications: Atrial Fibrillation. Measurements: 2D/M Mode Doppler Measurement Value Normal Range MeasurementValue Normal Range EF Teich MM 45.0 [ 55.0 - 70.0 ] percent MALCOLM Vmax1.59 [ 2.00 - 4.00 ] cm2 LVIDd MM 5.38 [ 3.90 - 5.30 ] cm AV Mean PG 3[ 2 - 4 ] mmHg LVIDs MM 4.16 [ 2.30 - 3.90 ] cm AV Peak Vel1.24 [ 1.00 - 1.70 ] m/s LVPWd MM 1.18 [ 0.60 - 1.00 ] cm AV VTI23.69 cm IVSd MM 1.11 [ 0.60 - 0.90 ] cm LVOT Diam1.85 [ 1.70 - 2.10 ] cm LA Dimension 2D 4.13 [ 2.70 - 3.80 ] cm LVOT Peak Vel0.61 [ 0.70 - 1.10 ] m/s AoR Diam MM 2.22 [ 2.60 - 3.70 ] cm LVOT VTI12.27 [ 20.00 - 30.00 ] cm ACS MM 1.18 cm MV E Peak Vel0.89 [ 0.60 - 1.30 ] m/s MV A Peak Vel0.37 [ 1.00 - 1.20 ] m/s MV Mean PG 1[ <= 5 ] mmHg MV PHT 44[ 20 - 100 ] msec MVA5.00 MV Decel Wogo879 [ 104 - 258 ] msec PV Peak Vel0.64 [ 0.40 - 0.80 ] m/s TR Peak Vel1.90 [ 1.00 - 2.80 ] m/s TR Peak PG 14mmHg RVSP24.00 [ 10.00 - 36.00 ] mmHg E'0.08 E/E'11.82 PA Xizitnre44.00 [ 10.00 - 36.00 ] mmHg Findings: Atrial Septum: Normal atrial septum. Left Ventricle: Irregular rhythm. Mild concentric left ventricular hypertrophy. Mildglobal left ventricular systolic dysfunction. Ejection fraction is visually estimatedat 40 to 45 %. Left Atrium: There is mild enlargement of left atrium. Right Ventricle: Normal right ventricular size. Right Atrium: The right atrium is normal in size. Aortic Valve: Normal structure of the aortic valve. Mitral Valve: Normal structure of the mitral valve. Moderate mitral valveregurgitation. Pulmonic Valve: Pulmonic valve not well visualized. Tricuspid Valve: Normal structure of the tricuspid valve. Trivial regurgitation in thetricuspid valve. Pericardium: Normal pericardium with no significant pericardial effusion. Aorta: Normal aortic root. IVC: Normal size and no respiratory collapse consistent with elevated rightatrial pressure (5-10 mmHg). Conclusions: Irregular rhythm. Mild concentric left ventricular hypertrophy. Mildglobal left ventricular systolic dysfunction. Ejection fraction is visually estimatedat 40 to 45 %. Normal structure of the mitral valve. Moderate mitral valveregurgitation. Normal structure of the aortic valve. Normal structure of the tricuspid valve. Trivial regurgitation in thetricuspid valve. Electronically Signed By: Dr Guanakito Holland 2018-07-29 15:00:34 CDT us Dinah Anguiano MD CV ECHO PROCEDURES Final Resu lt * eGFR (07/29/2018 6:26 AM CDT) eGFR 85 mL/min/1.7 3 m2 ANDREW JUAREZ ([place]) Comment: Interpretive Data Reference Interval Normal ?>/= 90 mL/min/1.73m2 Mildly decreased* ? 60 - 89 mL/min/1.73m2 Mildly to moderately decreased ?45 - 59 mL/min/1.73m2 Moderately to severely decreased ??30 - 44 mL/min/1.73m2 Severely decreased ?15 - 29 mL/min/1.73m2 Kidney Failure ?< 15 ??mL/min/1.73m2 *Relative to young adult level If -Serbian multiply value by 1.16. Estimated glomerular filtration [...] was last reviewed 2015. Blood specimen (specimen) 07/29/2018 6:26 AM CDT 07/29/2018 6:54 AM CDT Narrative [facility] ([place]) - 07/29/2018 7:32 AM CDT us Dinah Anguiano MD LAB BLOOD ORDERABLES Final Re sult [facility] ([place]) 1 [facility] [place] [address] * CBC without differential (07/29/2018 6:26 AM CDT) WBC 7.5 3.8 - 9.9 K/cumm [facility] ([place]) Hgb 12.9 11.9 - 15.5 g/dL [facility] ([place]) Hct 37.1 35.6 - 45.5 % [facility] ([place]) Plt 180 150 - 400 K/cumm [facility] ([place]) MPV 10.8 9.1 - 12.3 fL [facility] ([place]) RBC 4.08 3.90 - 5.20 M/cumm [facility] ([place]) MCV 90.9 81.3 - 96.4 fL [facility] ([place]) MCH 31.6 27.1 - 33.3 pg [facility] ([place]) MCHC 34.8 32.3 - 35.7 g/dL [facility] ([place]) RDW CV 12.7 11.1 - 14.9 % [facility] ([place]) RDW SD 41.6 35.7 - 48.1 fL [facility] ([place]) NRBC abs 0.00 0.00 - 0.01 K/cumm [facility] ([place]) Blood specimen (specimen) 07/29/2018 6:26 AM CDT 07/29/2018 6:54 AM CDT Narrative [facility] ([place]) - 07/29/2018 6:57 AM CDT us Dinah Anguiano MD LAB BLOOD ORDERABLES Final Re sult ANDREW JUAREZ ([place]) 1 [facility] [place] [address] * Basic metabolic panel (07/29/2018 6:26 AM CDT) Sodium 139 135 - 145 mmol/L [facility] ([facility]) Potassium, pl 3.8 3.3 - 4.9 mmol/L [facility] Chloride 104 97 - 110 mmol/L [facility]) CO2 25 22 - 32 mmol/L [facility] ([place]) Anion gap 10 2 - 15 mmol/L [facility] ([place]) BUN 10 8 - 25 mg/dL [facility] ([place]) Creatinine 0.66 0.60 - 1.10 mg/dL [facility] ([place]) Glucose 119 70 - 199 mg/dL [facility] (OG) Comment: Interpretive Data Fasting glucose >/= [...] interpretive data was last revised 2017. Calcium 9.0 8.5 - 10.3 mg/dL [facility] ([place]) Blood specimen (specimen) 07/29/2018 6:26 AM CDT 07/29/2018 6:54 AM CDT Narrative ANDREW JUAREZ ([place]) - 07/29/2018 7:32 AM CDT Dinah Anguiano MD LAB BLOOD ORDERABLES Final Re sult ANDREW JUAREZ ([place]) 1 [facility] [place] [address] * Magnesium (07/29/2018 6:26 AM CDT) Pathologist [facility] Magnesium 1.9 1.6 - 2.4 mg/dL CELYOSCAR JUAREZ ([place]) Blood specimen (specimen) 07/29/2018 6:26 AM CDT 07/29/2018 6:54 AM CDT Narrative ANDREW JUAREZ ([place]) - 07/29/2018 7:32 AM CDT Dinah Anguiano MD LAB BLOOD ORDERABLES Final Re sult Performing Organization Address City/[facility] Co de Phone Number ANDREW [facility] (OG) [address] [place] [address] [employer] [place] [address] * Phosphorus (07/29/2018 6:26 AM CDT) Pathologist [facility] Phosphorus, pl 3.5 2.3 - 4.5 mg/dL ANDREW [facility] ([place]) Blood specimen (specimen) 07/29/2018 6:26 AM CDT 07/29/2018 6:54 AM CDT Narrative CEYLOSCAR JUAREZ ([place]) - 07/29/2018 7:32 AM CDT Dinah Anguiano MD LAB BLOOD ORDERABLES Final Re sult Performing Organization Address [facility] Co de Phone Number ANDREW JUAREZ ([place]) [address] [place] [address] [employer] [place] [address] * Hemoglobin A1c (07/29/2018 6:26 AM CDT) Pathologist [facility] Hgb A1C 5.5 4.0 - 5.6 % ANDREW [facility] ([place]) Estimated Average Glucose 111 mg/dL ANDREW JUAREZ ([place]) Comment: The ADA recommends reporting an estimated Average Glucose (eAG) with all Hemoglobin A1c results using the equation derived from a study of 507 normal and diabetic adults. ??Minority populations were underrepresented and children were not included. ?? (Diabetes Care 31:3302-3895, 2008). ??The eAG is not equivalent to a fasting glucose. Blood specimen (specimen) 07/29/2018 6:26 AM CDT 07/29/2018 6:54 AM CDT Narrative ANDREW RICH) - 07/29/2018 7:26 AM CDT Dinah Anguiano MD LAB BLOOD ORDERABLES Final Re sult ANDREW RICH) 1 [facility] [place] [employer] [place] [address] * TSH reflex to free T4 (07/29/2018 6:26 AM CDT) TSH 0.88 0.30 - 4.20 mcIUnit/mL ANDREW RICH) Blood specimen (specimen) 07/29/2018 6:26 AM CDT 07/29/2018 6:54 AM CDT Narrative ANDREW RICH) - 07/29/2018 7:32 AM CDT Dinah Anguiano MD LAB BLOOD ORDERABLES Final Re sult Performing Organization Address City/[facility]/ZIP Co de Phone Number ANDREW RICH) [address] [place] [address] [employer] [place] [address] * (ABNORMAL) Troponin T (07/29/2018 6:26 AM CDT) Troponin T 0.33(C) 0.00 - 0.01 ng/mL ANDREW RICH) Comment: Consistent with previous critical value Interpretive Data Reference ranges for children <18 years of age have not been established. - > or = 18 years: Serial determinations are recommended for the diagnosis of myocardial infarction. ??Temporal rise and fall are consistent with myocardial infarction when at least one value is above the 99th percentile upper reference limit for troponin assay. ??Journal of the [place] College [employer]iology 2012;60:1581-98. Current Interpretive Data Last Revised Date: 2017. Blood specimen (specimen) 07/29/2018 6:26 AM CDT 07/29/2018 6:54 AM CDT Narrative ANDREW JUAREZ ([place]) - 07/29/2018 7:33 AM CDT us Dinah Anguiano MD LAB BLOOD ORDERABLES Final Re sult Performing Organization Address City/[facility] Co de Phone Number ANDREW JUAREZ ([place]) 1 [facility] [place] [address] * ECG 12 lead (07/29/2018 5:54 AM CDT) 07/29/2018 5:54 AM CDT Narrative [facility] - 07/29/2018 7:28 AM CDT Vent Rate: 101 bpm RR Interval: 592 msec NH Interval: 0 msec QRS Duration: 95 msec QT Interval: 318 msec QTC Interval: 376 msec P-R-T Hassell: 0 - 29 - 17 degrees ATRIAL FIBRILLATION WITH RAPID VENTRICULAR RESPONSE NONSPECIFIC ST \T\ T-WAVE ABNORMALITY ABNORMAL RHYTHM ECG Compared to 07/29/2018 no change Electronically Signed By: Dr Jarrett Mathis us Dinah Anguiano MD ECG ORDERABLES Final Result Performing Organization Address [facility] Co de Phone Number [employer] [place] * XR Chest 1 View (07/29/2018 12:17 AM CDT) Anatomical Region Laterality Modality Body, Chest N/A Computed Radiogr aphy 07/29/2018 6:57 AM CDT Impressions 07/29/2018 6:58 AM CDT NO ACTIVE CARDIOPULMONARY DISEASE. Electronically signed by: Daniel Crawford M.D. Narrative 07/29/2018 6:58 AM CDT XR CHEST 1 VIEW HISTORY: chest pain. COMPARISON: 09/25/2017 FINDINGS: One view of the chest obtained at 00:11 hrs demonstrates clear lungs bilaterally with no focal infiltrates. ??The heart size and pulmonary vascularity are normal. Procedure Note Daniel Crawford MD - 07/29/2018 XR CHEST 1 VIEW HISTORY: chest pain. COMPARISON: 09/25/2017 FINDINGS: One view of the chest obtained at 00:11 hrs demonstrates clear lungs bilaterally with no focal infiltrates. The heart size and pulmonary vascularity are normal. IMPRESSION: NO ACTIVE CARDIOPULMONARY DISEASE. Electronically signed by: Daniel Crawford M.D. Harjit Kovacs MD IMG XR PROCEDURES Final Resu lt * ECG 12 lead (07/29/2018 12:14 AM CDT) 07/29/2018 12:1 4 AM CDT Narrative [facility] - 07/29/2018 7:34 AM CDT Vent Rate: 136 bpm RR Interval: 440 msec NH Interval: 0 msec QRS Duration: 88 msec QT Interval: 260 msec QTC Interval: 340 msec P-R-T Hassell: 0 - 12 - 0 degrees ATRIAL FIBRILLATION WITH RAPID VENTRICULAR RESPONSE MARKED ST DEPRESSION, CONSIDER ??SUBENDOCARDIAL INJURY [0.2+ mV ST DEPRESSION] ABNORMAL ECG Compared to 02/09/2016 atrial fibrillation is new, ST depression is new Electronically Signed By: Dr Jarrett Mathis Harjit Kovacs MD ECG ORDERABLES Final Result [facility] * eGFR (07/29/2018 12:08 AM CDT) eGFR 74 mL/min/1.7 3 m2 ANDREW JUAREZ (OG) Comment: Interpretive Data Reference Interval Normal ?>/= 90 mL/min/1.73m2 Mildly decreased* ? 60 - 89 mL/min/1.73m2 Mildly to moderately decreased ?45 - 59 mL/min/1.73m2 Moderately to severely decreased ??30 - 44 mL/min/1.73m2 Severely decreased ?15 - 29 mL/min/1.73m2 Kidney Failure ?< 15 ??mL/min/1.73m2 *Relative to young adult level If -Serbian multiply value by 1.16. Estimated glomerular filtration [...] was last reviewed 2015. Blood specimen (specimen) 07/29/2018 12:08 AM CDT 07/29/2018 12:12 AM CDT Narrative ANDREW JU[facility] ([place]) - 07/29/2018 12:40 AM CDT us Harjit Kovacs MD LAB BLOOD ORDERABLES Final R esult ANDREW J[facility] ([place]) 1 [facility] [place] [address] * (ABNORMAL) Lipid panel (07/29/2018 12:08 AM CDT) Cholesterol 169 30 - 199 mg/dL [facility]W [facility] ([place]) Comment: Interpretive Data Ages < or = [...] Data was last revised on 2017. Triglycerides 154(H) <=149 mg/dL [facility] ([place]) Comment: Interpretive Data Ages < or = [...] Data was last revised on 2017. HDL 32(L) >=40 mg/dL ANDREW JUAREZ ([facility]) Comment: Interpretive Data Ages < or = [...] was last revised on 2017. LDL, calculated 106 <=129 mg/dL ANDREW JUAREZ ([facility]) Comment: Interpretive Data Ages < or = [...] was last revised on 2017. Non-HDL Cholesterol 137 mg/dL ANDREW JUAREZ ([place]) Comment: Interpretive Data Ages < or = [...] was last revised on 2017. Chol/HDL ratio 5 FERNANDO JUAREZ ([place]) Blood specimen (specimen) 07/29/2018 12:08 AM CDT 07/29/2018 12:12 AM CDT Narrative ANDREW JUAREZ ([place]) - 07/29/2018 12:53 AM CDT This lipid panel was automatically ordered due to a Troponin-T. The dietary status of the patient at the collection time should be correlated with the lipid results. (Reflex test added by rule [id number]_[id number]_LIPID; ag1) us Harjit Kovacs MD LAB BLOOD ORDERABLES Final R esult CELYOSCAR JUAREZ ([place]) 1 [facility] [place] [address] * (ABNORMAL) Differential, auto (07/29/2018 12:08 AM CDT) Neutrophil abs 4.5 1.7 - 6.5 K/cumm [facility] ([facility]) Imm gran abs 0.0 0.0 - 0.1 K/cumm [facility] ([facility]) Lymphocyte abs 4.0(H) 0.8 - 3.3 K/cumm [facility] ([facility]) Monocyte abs 0.7 0.2 - 0.8 K/cumm [facility] ([facility]) Eosinophil abs 0.1 0.0 - 0.5 K/cumm [facility] ([facility]) Basophil abs 0.0 0.0 - 0.1 K/cumm [facility] ([facility]) Neutrophil pct 47.6 % [facility] ([facility]) Comment: Interpretive Data Percent cell count reference ranges are not reported, since discordance with absolute values may lead to misinterpretation of CBC data. Current Interpretive Data was last revised on 2017. Imm gran pct 0.5 % [facility] ([facility]) Comment: Interpretive Data Percent cell count reference ranges are not reported, since discordance with absolute values may lead to misinterpretation of CBC data. Current Interpretive Data was last revised on 2017. Lymphocyte pct 42.8 % [facility] ([facility]) Comment: Interpretive Data Percent cell count reference ranges are not reported, since discordance with absolute values may lead to misinterpretation of CBC data. Current Interpretive Data was last revised on 2017. Monocyte pct 7.2 % [facility] ([facility]) Comment: Interpretive Data Percent cell count reference ranges are not reported, since discordance with absolute values may lead to misinterpretation of CBC data. Current Interpretive Data was last revised on 2017. Eosinophil pct 1.4 % [facility] ([facility]) Comment: Interpretive Data Percent cell count reference ranges are not reported, since discordance with absolute values may lead to misinterpretation of CBC data. Current Interpretive Data was last revised on 2017. Basophil pct 0.5 % [facility] ([facility]) Comment: Interpretive Data Percent cell count reference ranges are not reported, since discordance with absolute values may lead to misinterpretation of CBC data. Current Interpretive Data was last revised on 2017. Blood specimen (specimen) 07/29/2018 12:08 AM CDT 07/29/2018 12:12 AM CDT Narrative ANDREW JUAREZ ([place]) - 07/29/2018 12:34 AM CDT Harjit Kovacs MD LAB BLOOD ORDERABLES Final R esult ANDREW JU[facility] ([place]) 1 [facility] [place] [address] * (ABNORMAL) Troponin T (07/29/2018 12:08 AM CDT) Troponin T 0.36(C) 0.00 - 0.01 ng/mL ANDREW JU[facility]Z ([place]) Comment: Critical Result called to and read back by Michelle Paniagua-APARNA Barnett, DATE: 2018-07-29 00:40:19 BY: Johanna Hodgson Interpretive Data Reference ranges for children <18 years of age have not been established. - > or = 18 years: Serial determinations are recommended for the diagnosis of myocardial infarction. ??Temporal rise and fall are consistent with myocardial infarction when at least one value is above the 99th percentile upper reference limit for troponin assay. ??Journal of the [place] [employer] 2012;60:1581-98. Current Interpretive Data Last Revised Date: 2017. Blood specimen (specimen) 07/29/2018 12:08 AM CDT 07/29/2018 12:12 AM CDT Narrative ANDREW JU[facility]Z ([place]) - 07/29/2018 12:40 AM CDT Harjit Kovacs MD LAB BLOOD ORDERABLES Final R esult ANDREW [facility] ([facility]) 1 [facility] [place] [address] * Protime-INR (07/29/2018 12:08 AM CDT) PT 12.8 9.5 - 13.0 sec ANDREW [facility] ([facility]) INR 1.13 0.90 - 1.20 ANDREW [facility] ([facility]) Comment: Interpretive Data Recommended ranges for Protime INR: 2.0 - 3.0 Most indications for Warfarin therapy (e.g. Treatment of DVT, PE, bioprosthetic valve replacement, prophylaxis venous thrombosis, atrial fibrillation). 2.5 - 3.5 Mechanical mitral valve or dual mechanical mitral and Aortic valve replacement. Current Interpretive Data was last revised on 2014. Blood specimen (specimen) 07/29/2018 12:08 AM CDT 07/29/2018 12:12 AM CDT Narrative ANDREW JU[facility] ([place]) - 07/29/2018 12:24 AM CDT us Harjit Kovacs MD LAB BLOOD ORDERABLES Final R esult ANDREW JUAREZ ([place]) 1 [facility] [place] [address] * (ABNORMAL) Pro B-type natriuretic peptide (07/29/2018 12:08 AM CDT) NT-proBNP 2,810(H) <=450 pg/mL ANDREW JUAREZ ([place]) Comment: Interpretive Comments: A. Dyspnea in Acute Care Setting All Ages: ??< 300 pg/ml, acute heart failure unlikely < 50 yrs: ??> or = 300 pg/ml and < or = 450 pg/ml, further investigation warranted ??> 450 pg/ml, acute heart failure likely 50 - 74 yrs > or = 300 pg/ml and < or = 900 pg/ml, further investigation warranted ??> 900 pg/ml, acute heart failure likely > or = 75 yrs 450 - 1800 pg/ml, further investigation warranted ??> 1800 pg/ml, acute heart failure likely B. Non-acute Setting < 75 yrs ??< 125 pg/ml, rules out heart failure ??> or = 125 pg/ml, further investigation warranted > or = 75 yrs < 450 pg/ml, rules out heart failure ??> or = 450 pg/ml, further investigation warranted Knowledge of each individual patient's NT-proBNP range may be more useful than using similar cut-points for every patient. Please note that marked elevations in NT-proBNP levels may be observed in state other than Left Ventricular Congestive Failure, including: acute coronary syndromes, right heart strain/failure (including pulmonary embolism and cor pulmonale), critial illness, renal failure, as well as advanced age. References: 1. Kunal JOSEPH et.al. Eur Heart J. 2006:27:330-337. 2. David ODOM, Manpreet LAO. J. AM Boaz Cardiol: Cardiovasc Imag. 2009;2: 216- 225. Interpretive Data Last Revised Date: 2017. Blood specimen (specimen) 07/29/2018 12:08 AM CDT 07/29/2018 12:12 AM CDT Narrative ANDREW JU[facility]Z ([place]) - 07/29/2018 12:42 AM CDT Harjit Kovacs MD LAB BLOOD ORDERABLES Final R esult Performing Organization Address [facility] Co de Phone Number ANDREW JUAREZ ([place]) [address] [place] [address] [place] [address] * Magnesium (07/29/2018 12:08 AM CDT) Magnesium 1.8 1.6 - 2.4 mg/dL ANDREW [facility] ([facility]) Blood specimen (specimen) 07/29/2018 12:08 AM CDT 07/29/2018 12:12 AM CDT Narrative CELYOSCAR JUAREZ ([place]) - 07/29/2018 12:40 AM CDT Harjit Kovacs MD LAB BLOOD ORDERABLES Final R esult Performing Organization Address City/[facility]/ZIP Co de Phone Number ANDREW JUAREZ ([place]) [address] [place] [address] [place] [address] * Comprehensive metabolic panel (07/29/2018 12:08 AM CDT) Sodium 137 135 - 145 mmol/L ANDREW [facility] (OG) Potassium, pl 3.7 3.3 - 4.9 mmol/L ANDREW [facility] (OG) Chloride 100 97 - 110 mmol/L [facility] ([facility]) CO2 24 22 - 32 mmol/L [facility] ([facility]) Anion gap 13 2 - 15 mmol/L [facility] ([facility]) BUN 11 8 - 25 mg/dL [facility] ([facility]) Creatinine 0.77 0.60 - 1.10 mg/dL [facility] ([facility]) Glucose 117 70 - 199 mg/dL [facility] ([facility]) Comment: Interpretive Data Fasting glucose >/= [...] interpretive data was last revised 2017. Calcium 9.3 8.5 - 10.3 mg/dL [facility] ([facility]) Bilirubin, total 0.5 0.1 - 1.2 mg/dL [facility] ([facility]) Protein, pl 6.7 6.5 - 8.5 g/dL [facility] ([facility]) Albumin 4.1 3.5 - 5.0 g/dL [facility] ([facility]) Alk phos 43 40 - 130 Units/L [facility] ([facility]) ALT 30 7 - 45 Units/L [facility] ([facility]) AST 37 10 - 45 Units/L [facility] ([facility]) Blood specimen (specimen) 07/29/2018 12:08 AM CDT 07/29/2018 12:12 AM CDT Narrative [facility] ([place]) - 07/29/2018 12:40 AM CDT us Harjit Kovacs MD LAB BLOOD ORDERABLES Final R esult [facility] ([place]) 1 [facility] [place] [address] * CBC with auto differential (07/29/2018 12:08 AM CDT) WBC 9.4 3.8 - 9.9 K/cumm [facility] ([facility]) Hgb 14.2 11.9 - 15.5 g/dL [facility] ([facility]) Hct 41.8 35.6 - 45.5 % [facility] ([facility]) Plt 228 150 - 400 K/cumm [facility] ([facility]) MPV 10.9 9.1 - 12.3 fL [facility] ([facility]) RBC 4.56 3.90 - 5.20 M/cumm [facility] ([facility]) MCV 91.7 81.3 - 96.4 fL [facility] ([facility]) MCH 31.1 27.1 - 33.3 pg [facility] ([facility]) MCHC 34.0 32.3 - 35.7 g/dL [facility] ([facility]) RDW CV 12.7 11.1 - 14.9 % [facility] ([facility]) RDW SD 42.3 35.7 - 48.1 fL [facility] ([facility]) NRBC abs 0.00 0.00 - 0.01 K/cumm [facility] ([facility]) Blood specimen (specimen) 07/29/2018 12:08 AM CDT 07/29/2018 12:12 AM CDT Narrative [facility] ([place]) - 07/29/2018 12:34 AM CDT Harjit Kovacs MD LAB BLOOD ORDERABLES Final R esult [facility] ([place]) 1 [facility] [place] [address] * aPTT (07/29/2018 12:08 AM CDT) aPTT 31.1 25.0 - 37.0 sec [facility] ([place]) Blood specimen (specimen) 07/29/2018 12:08 AM CDT 07/29/2018 12:12 AM CDT Narrative [facility] ([place]) - 07/29/2018 12:27 AM CDT us Harjit Kovacs MD LAB BLOOD ORDERABLES Final R esult ANDREW [facility] Department of Laboratories [place], [place] [id number] documented in this encounter Visit Diagnoses Diagnosis Atrial fibrillation with rapid ventricular response (CMS/HCC) (HCC)- Primary Atrial fibrillation with rapid ventricular response (CMS/HCC) (HCC) Acute coronary syndrome (CMS/HCC) (HCC) Intermediate coronary syndrome Sore throat Acute pharyngitis Diarrhea of infectious origin Diarrhea of presumed infectious origin Chronic GERD Coronary artery disease involving [place] coronary artery of [place] heart without angina pectoris Hyperlipidemia Other and unspecified hyperlipidemia Paroxysmal atrial fibrillation (CMS/HCC) (HCC) Atrial fibrillation Anxiety Anxiety state, unspecified NSTEMI (non-ST elevated myocardial infarction) (CMS/HCC) ([facility]) Acute myocardial infarction, subendocardial infarction, episode of care unspecified documented in this encounter Administered Medications Inactive Administered Medications - up to 3 most recent administrations Medication Order MAR Action Action Date Dose Rate Site acetaminophen (TYLENOL) tablet 650 mg 650 mg, oral, Every 4 hours PRN, 1st line for pain, fever, fever greater than 38.3 C, Starting on Fri07/29/18 at 0233, Indications: Fever, PainIndications:Fever,Pain Given 07/30/2018 4:51 AM CDT 650 mg Given 07/29/2018 9:16 PM CDT 650 mg Given 07/29/2018 3:35 PM CDT 650 mg al & mag hydroxide simethicone-lidocaine oral suspension mixture 40 mL, oral, Once, On Fri07/28/18 at 2358, For 1 dose Given 07/29/2018 12:17 AM CDT 40 mL aluminum-magnesium hydroxide-simethicone (MAALOX) 40-40-4 mg/mL oral suspension 30 mL 30 mL, oral, 4 times daily PRN, indigestion, heartburn, Starting on Fri07/30/18 at 0800 Given 07/30/2018 8:12 AM CDT 30 mL amiodarone (NEXTERONE) 150 mg/100 mL (1.5 mg/mL) in dextrose (premix) 150 mg 150 mg, intravenous, at 600 mL/hr, Administer over 10 Minutes, Once, On Fri07/29/18 at 0105, For 1 dose, Use filter 0.22 micron or less New Bag 07/29/2018 1:16 AM CDT 150 mg 600 mL/hr amiodarone in dextrose (NEXTERONE) 360 mg/200 mL (1.8 mg/mL) infusion (premix) 1 mg/min (33.3333 mL/hr, rounded to 33.3 mL/hr), 1.8 mg/mL, intravenous, Continuous, Starting on Fri07/29/18 at 0234, Until Fri07/29/18 at 0821, Use filter 0.22 micron or less, STAT New Bag 07/29/2018 3:12 AM CDT 1 mg/min 33.3 mL/hr apixaban (ELIQUIS) tablet 5 mg 5 mg, oral, 2 times daily, First dose (after last modification) on [place] 07/30/18 at 2100, May crush and suspend in 60 ml of water, D5W, apple juice or apple sauce. If on heparin infusion, discontinue heparin infusion upon first administration of apixaban., Indications: atrial fibrillationIndications:atrial fibrillation ceFAZolin (ANCEF) 2000 mg/100 mL in dextrose (premix) 2,000 mg 2,000 mg, intravenous, at 200 mL/hr, Administer over 30 Minutes, Every 8 hours scheduled, First dose (after last modification) on Fri07/29/18 at 2200, For 2 doses, Order adjusted per surgical prophylaxis SCIP protocol for adult patients less than 120 kg, give 2000 mg cefazolin, Indications: Prophylaxis, SurgicalIndications:Prophylaxis, Surgical New Bag 07/30/2018 6:05 AM CDT 2,000 mg 200 mL/hr New Bag 07/29/2018 9:18 PM CDT 2,000 mg 200 mL/hr digoxin (LANOXIN) injection 250 mcg 250 mcg, intravenous, Administer over 5 Minutes, Once, On Fri07/29/18 at 0039, For 1 dose Given 07/29/2018 12:44 AM CDT 250 mcg Right Hand dilTIAZem (CARDIZEM) injection 10 mg 10 mg, intravenous, Administer over 2 Minutes, Once, On [place] 07/30/18 at 0845, For 1 dose, Refrigerate Given 07/30/2018 8:13 AM CDT 10 mg dilTIAZem XR (CARDIZEM CD,DILACOR XR) 24 hour capsule 240 mg 240 mg, oral, Daily, First dose on Fri07/30/18 at 0900, Do not crush, chew, cut, dissolve, open or otherwise manipulate tablet/capsule. Given 07/30/2018 9:55 AM CDT 240 mg famotidine (PEPCID) injection 20 mg 20 mg, intravenous, Administer over 2 Minutes, Daily, First dose (after last modification) on Fri07/29/18 at 0900, Dosing for iv pepcid for CrCl less than 50 (CrCl =43.7) Given 07/29/2018 8:55 AM CDT 20 mg famotidine (PEPCID) tablet 20 mg 20 mg, oral, Daily, First dose (after last modification) on Fri07/29/18 at 1845, Dose of famotidine adjusted per renal protocol for CrCl=30-50 ml/min (CrCl=43.7 ml/min) Given 07/30/2018 8:13 AM CDT 20 mg Given 07/29/2018 6:50 PM CDT 20 mg fentaNYL (SUBLIMAZE) preservative free injection 25 mcg 25 mcg, intravenous, Once, On Fri07/29/18 at 0128, For 1 dose Given 07/29/2018 1:41 AM CDT 25 mcg ondansetron (ZOFRAN) injection 4 mg 4 mg, intravenous, Administer over 2 Minutes, Once, On Fri07/29/18 at 0128, For 1 dose, Indications: Nausea and VomitingIndications:Nausea and Vomiting Given 07/29/2018 1:38 AM CDT 4 mg ondansetron (ZOFRAN) injection 4 mg 4 mg, intravenous, Administer over 2 Minutes, Every 6 hours PRN, nausea, vomiting, if not tolerating PO, Starting on Fri07/29/18 at 0233, Indications: Nausea and VomitingIndications:Nausea and Vomiting Given 07/29/2018 5:30 PM CDT 4 mg Given 07/29/2018 11:54 AM CDT 4 mg ondansetron ODT (ZOFRAN-ODT) disintegrating tablet 4 mg 4 mg, oral, Every 6 hours PRN, nausea, vomiting, Starting on Fri07/29/18 at 0233, Indications: Nausea and VomitingIndications:Nausea and Vomiting sodium chloride 0.9% bolus 1,000 mL 1,000 mL, intravenous, Once, On Fri07/29/18 at 0039, For 1 dose Rate/Dose Change 07/29/2018 12:49 AM CDT 75 mL/hr Right Hand New Bag 07/29/2018 12:40 AM CDT 1,000 mL R ight Hand sodium chloride 0.9% flush 0.5-20 mL 0.5-20 mL, intra-catheter, Every 8 hours scheduled, First dose on Fri07/29/18 at 1600, Recovery (CV), Flush volume based on line type and size. , Indications: FlushingIndications:Flushing Given 07/30/2018 6:05 AM CDT 10 mL Given 07/29/2018 9:18 PM CDT 10 mL Given 07/29/2018 3:30 PM CDT 10 mL sodium chloride 0.9% flush 0.5-20 mL 0.5-20 mL, intra-catheter, As needed, line care, Starting on Fri07/29/18 at 1526, Recovery (CV), Flush volume based on line type and size. Flush before and after each use. , Indications: FlushingIndications:Flushi ng sodium chloride 0.9% infusion 75 mL/hr, intravenous, Continuous, Starting on Fri07/29/18 at 0056 New Bag 07/29/2018 1:06 AM CDT 75 mL/hr 75 mL/hr Right Hand sodium chloride 0.9% infusion 75 mL/hr, intravenous, Continuous, Starting on Fri07/29/18 at 0234 Restarted 07/29/2018 3:13 AM CDT 75 mL/hr 75 mL/hr documented in this encounter Discontinued Medications Medication Sig Discontinue Reason Start Date End Da te calcium acetate (PHOSLO) 667 mg capsule Take 667 mg by mouth 3 (three) times a day with meals. 07/29/2018 lansoprazole (PREVACID) 15 mg capsule Take 15 mg by mouth daily. Stop Taking at Discharge 07/30/2018 documented as of this encounter Historical Medications * This list may reflect changes made after this encounter. ascorbic acid (VITAMIN C) 1,000 mg tablet Take 2 tablets (2,000 mg total) by mouth daily 08/12/2022 added in this encounter Active and Recently Administered Medications Times are shown in CDT. Scheduled Medication Order 07/28/2018 07/29/2018 07/30/2018 al & mag hydroxide simethicone-lidocaine oral suspension mixture (COMPLETED) 40 mL, oral, Once, On Fri07/28/18 at 2358, For 1 dose 0017 (Given - Provider: Natalie Mayers, BRAYAN) amiodarone (NEXTERONE) 150 mg/100 mL (1.5 mg/mL) in dextrose (premix) 150 mg (COMPLETED) 150 mg, intravenous, at 600 mL/hr, Administer over 10 Minutes, Once, On Fri07/29/18 at 0105, For 1 dose, Use filter 0.22 micron or less 0116 (New Bag - Provider: Mellissa Cash, BRAYAN - Comment: Iv pump)0129 (Stopped - Provider: Mellissa Cash, BRAYAN) apixaban (ELIQUIS) tablet 5 mg 5 mg, oral, 2 times daily, First dose (after last modification) on [place] 07/30/18 at 2100, May crush and suspend in 60 ml of water, D5W, apple juice or apple sauce. If on heparin infusion, discontinue heparin infusion upon first administration of apixaban., Indications: atrial fibrillation ceFAZolin (ANCEF) 2000 mg/100 mL in dextrose (premix) 2,000 mg (COMPLETED) 2,000 mg, intravenous, at 200 mL/hr, Administer over 30 Minutes, Every 8 hours scheduled, First dose (after last modification) on Fri07/29/18 at 2200, For 2 doses, Order adjusted per surgical prophylaxis SCIP protocol for adult patients less than 120 kg, give 2000 mg cefazolin, Indications: Prophylaxis, Surgical 2117 (New Bag - Provider: Carol Ann Friedman, BRAYAN) 0605 (New Bag - Provider: Carol Ann Friedman RN) digoxin (LANOXIN) injection 250 mcg (COMPLETED) 250 mcg, intravenous, Administer over 5 Minutes, Once, On Fri07/29/18 at 0039, For 1 dose 0044 (Given - Provider: Natalie Mayers, BRAYAN) dilTIAZem (CARDIZEM) injection 10 mg (COMPLETED) 10 mg, intravenous, Administer over 2 Minutes, Once, On [place] 07/30/18 at 0845, For 1 dose, Refrigerate 0813 (Given - Provid er: aWtson Meyer RN) dilTIAZem XR (CARDIZEM CD,DILACOR XR) 24 hour capsule 240 mg 240 mg, oral, Daily, First dose on [place] 07/30/18 at 0900, Do not crush, chew, cut, dissolve, open or otherwise manipulate tablet/capsule. 0955 (Given - Provid er: Watson Meyer RN) famotidine (PEPCID) injection 20 mg (CANCELED) 20 mg, intravenous, Administer over 2 Minutes, Daily, First dose (after last modification) on Fri07/29/18 at 0900, Dosing for iv pepcid for CrCl less than 50 (CrCl =43.7) 0855 (Given - Provider: Lucy Jin RN)1226 (MAR Hold - Provider: Automatic Transfer Provider - Reason: Patient not available)1443 (MAR Unhold - Provider: Automatic Transfer Provider) famotidine (PEPCID) tablet 20 mg 20 mg, oral, Daily, First dose (after last modification) on Fri07/29/18 at 1845, Dose of famotidine adjusted per renal protocol for CrCl=30-50 ml/min (CrCl=43.7 ml/min) 1850 (Given - Provider: Lucy Jin RN) 0813 (Given - Provider: Watson Meyer RN) fentaNYL (SUBLIMAZE) preservative free injection 25 mcg (COMPLETED) 25 mcg, intravenous, Once, On Fri07/29/18 at 0128, For 1 dose 0141 (Given - Provider: Mellissa Cash, BRAYAN) ondansetron (ZOFRAN) injection 4 mg (COMPLETED) 4 mg, intravenous, Administer over 2 Minutes, Once, On Fri07/29/18 at 0128, For 1 dose, Indications: Nausea and Vomiting 0138 (Given - Provider: Mellissa Cash, RN) sodium chloride 0.9% bolus 1,000 mL (COMPLETED) 1,000 mL, intravenous, Once, On Fri07/29/18 at 0039, For 1 dose 0040 (New Bag - Provider: Natalie Mayers RN)0049 (Rate/Dose Change - Provider: Natalie Mayers RN - Comment: alaris pump)0104 (Stopped - Provider: Natalie Mayers RN) sodium chloride 0.9% flush 0.5-20 mL 0.5-20 mL, intra-catheter, Every 8 hours scheduled, First dose on Fri07/29/18 at 1600, Recovery (CV), Flush volume based on line type and size. , Indications: Flushing 1530 (Given - Provider: Lucy Jin RN)2118 (Given - Provider: Carol Ann Friedman RN) 0605 (Given - Provider: Carol Ann Friedman RN) Continuous Medication Order 07/28/2018 07/29/2018 07/30/2018 amiodarone in dextrose (NEXTERONE) 360 mg/200 mL (1.8 mg/mL) infusion (premix) (CANCELED) 1 mg/min (33.3333 mL/hr, rounded to 33.3 mL/hr), 1.8 mg/mL, intravenous, Continuous, Starting on Fri07/29/18 at 0234, Until Fri07/29/18 at 0821, Use filter 0.22 micron or less, STAT 0312 (New Bag - Provider: Abigail Corcoran RN)0850 (Stopped - Provider: Lucy Jin RN) sodium chloride 0.9% infusion (CANCELED) 75 mL/hr, intravenous, Continuous, Starting on Fri07/29/18 at 0056 0106 (New Bag - Provider: Stewart Santos RN - Comment: alaris pump) sodium chloride 0.9% infusion (CANCELED) 75 mL/hr, intravenous, Continuous, Starting on Fri07/29/18 at 0234 0313 (Restarted - Provider: Abigail Corcoran RN) PRN Medication Order 07/28/2018 07/29/2018 07/30/2018 acetaminophen (TYLENOL) tablet 650 mg 650 mg, oral, Every 4 hours PRN, 1st line for pain, fever, fever greater than 38.3 C, Starting on Fri07/29/18 at 0233, Indications: Fever, Pain 0342 (Given - Provider: Abigail Corcoran RN - Comment: stomach pain)1226 (MAY Hold - Provider: Automatic Transfer Provider - Reason: Patient not available)1443 (MAY Unhold - Provider: Automatic Transfer Provider)1535 (Given - Provider: Lucy Jin RN)2116 (Given - Provider: Carol Ann Friedman, BRAYAN) 0451 (Given - Provider: Carol Ann Friedman RN) ALPRAZolam (XANAX) tablet 0.5 mg 0.5 mg, oral, 3 times daily PRN, anxiety, Starting on Fri07/29/18 at 0344 1226 (MAY Hold - Provider: Automatic Transfer Provider - Reason: Patient not available)1443 (MAY Unhold - Provider: Automatic Transfer Provider) aluminum-magnesium hydroxide-simethicone (MAALOX) 40-40-4 mg/mL oral suspension 30 mL 30 mL, oral, 4 times daily PRN, indigestion, heartburn, Starting on [place] 07/30/18 at 0800 0812 (Given - Provid er: Watson Meyer RN) ceFAZolin (ANCEF) 1 gram/10 mL in sterile water (premix) (COMPLETED) Administer over 3 Minutes, Continuous PRN, Starting on Fri07/29/18 at 1325, Intra-Procedure (CV) 1325 (New Bag - Provider: Kraig Reilly RN - Comment: given over 30 minutes) diphenhydrAMINE (BENADRYL) injection (CANCELED) Administer over 2 Minutes, As needed, Starting on Fri07/29/18 at 1317, Intra-Procedure (CV) 1317 (Given - Provider: Kraig Reilly RN) docusate sodium (COLACE) capsule 100 mg 100 mg, oral, 2 times daily PRN, constipation, Starting on Fri07/29/18 at 0347, Indications: constipation 1226 (MAY Hold - Provider: Automatic Transfer Provider - Reason: Patient not available)1443 (MAY Unhold - Provider: Automatic Transfer Provider) fentaNYL (SUBLIMAZE) preservative free injection (CANCELED) As needed, Starting on Fri07/29/18 at 1325, Intra-Procedure (CV) 1318 (Given - Provider: Kraig Reilly RN)1346 (Given - Provider: Kraig Reilly RN) lidocaine PF (XYLOCAINE) 10 mg/mL (1 %) preservative free injection (CANCELED) As needed, Starting on Fri07/29/18 at 1340, Intra-Procedure (CV) 1340 (Given - Provider: Guanakito Holland MD)1412 (Given - Provider: Guanakito Holland MD - Comment: [facility]) metoprolol (LOPRESSOR) injection (CANCELED) Administer over 1 Minutes, As needed, Starting on Fri07/29/18 at 1439, Intra-Procedure (CV) 1430 (Given - Provider: Kraig Reilly, RN - Comment: allergy reviewed with dr. Holland) midazolam (VERSED) preservative free injection (CANCELED) Administer over 2 Minutes, As needed, Starting on Fri07/29/18 at 1325, Intra-Procedure (CV) 1318 (Given - Provider: Kraig Reilly, RN)1335 (Given - Provider: Kraig Reilly, RN) ondansetron (ZOFRAN) injection 4 mg(Linked Group 1) 4 mg, intravenous, Administer over 2 Minutes, Every 6 hours PRN, nausea, vomiting, if not tolerating PO, Starting on Fri07/29/18 at 0233, Indications: Nausea and Vomiting 1154 (Given - Provider: Lucy Jin RN)1226 (MAY Hold - Provider: Automatic Transfer Provider - Reason: Patient not available)1443 (MAY Unhold - Provider: Automatic Transfer Provider)1730 (Given - Provider: Lucy Jni, BRAYAN) ondansetron (ZOFRAN) injection (CANCELED) Administer over 2 Minutes, As needed, Starting on Fri07/29/18 at 1322, Intra-Procedure (CV) 1322 (Given - Provider: Kraig Reilly, RN) ondansetron ODT (ZOFRAN-ODT) disintegrating tablet 4 mg(Linked Group 1) 4 mg, oral, Every 6 hours PRN, nausea, vomiting, Starting on Fri07/29/18 at 0233, Indications: Nausea and Vomiting 1154 (See Alternative - Provider: Lucy Jin RN)1226 (MAY Hold - Provider: Automatic Transfer Provider - Reason: Patient not available)1443 (MAY Unhold - Provider: Automatic Transfer Provider)1730 (See Alternative - Provider: Lucy Jin, BRAYAN) sodium chloride 0.9% flush 0.5-20 mL 0.5-20 mL, intra-catheter, As needed, line care, Starting on Fri07/29/18 at 1526, Recovery (CV), Flush volume based on line type and size. Flush before and after each use. , Indications: Flushing sodium chloride 0.9% infusion (COMPLETED) Continuous PRN, Starting on Fri07/29/18 at 1314, Intra-Procedure (CV) 1314 (New Bag - Provider: Kraig Reilly RN) Linked Groups Order Group 1: ondansetron ODT (ZOFRAN-ODT) disintegrating tablet 4 mgJump to med 4 mg, oral, Every 6 hours PRN, nausea, vomiting, Starting on Fri07/29/18 at 0233, Indications: Nausea and Vomiting Or ondansetron (ZOFRAN) injection 4 mgJump to med 4 mg, intravenous, Administer over 2 Minutes, Every 6 hours PRN, nausea, vomiting, if not tolerating PO, Starting on Fri07/29/18 at 0233, Indications: Nausea and Vomiting documented in this encounter Orders Medications Ordered That Flaco ht Not Have Been Administered Count Last Ordered Date First Ordered Date metoprolol XL (TOPROL-XL) ex tended release tablet 100 mg 1 07/30/2018 ALPRAZolam (XANAX) tablet 0.5 mg 1 07/30/19 apixaban (ELIQUIS) tablet 5 mg 2 07/29/2018 ceFAZolin (ANCEF) 1 gram/10 mL in sterile water (premix) 1 07/29/2018 ceFAZolin (ANCEF) 2,000 mg i n sterile water 20 mL (100 mg/mL) IV syringe 1 07/29/2018 diphenhydrAMINE (BENADRYL) injection 1 10/2018 docusate sodium (COLACE) capsule 100 mg 1 0 07/29/2018 famotidine (PEPCID) injection 40 mg 1 07/29 famotidine (PEPCID) tablet 20 mg 1 07/30/19 fentaNYL (SUBLIMAZE) preserv ative free injection 07/29/2018 lidocaine PF (XYLOCAINE) 10 mg/mL (1 %) preservative free injection 1 07/29/2018 metoprolol (LOPRESSOR) injection 1 07/30/19 19 midazolam (VERSED) preservat kvng free injection 1 07/29/2018 ondansetron (ZOFRAN) injection 1 07/29/2018 ondansetron ODT (ZOFRAN-ODT) disintegrating tablet 4 mg 1 07/29/2018 sodium chloride 0.9% flush 0.5-20 mL 1 10/2018 sodium chloride 0.9% infusion 1 07/29/2018 vancomycin 1000 mg/200 mL in sodium chloride 0.9% (premix) 1,000 mg 1 07/29/2018 Diet Count Last Ordered Date First Orde red Date ADULT DISCHARGE DIET 1 07/30/2018 Nursing Count Last Ordered Date First Orde red Date DISCHARGE ACTIVITY 4 07/30/2018 9 FOLLOW UP PRIMARY PHYSICIAN 1 07/30/2018 DISCHARGE CALL PROVIDER 1 07/29/2018 DISCHARGE DRESSING 1 07/29/2018 DISCHARGE INSTRUCTIONS 2 07/29/2018 FOLLOW UP WITH PROVIDER 1 07/29/2018 NOTIFY PROVIDER (SPECIFY) 1 07/29/2018 VITAL SIGNS 1 07/29/2018 WEIGH PATIENT 2 07/29/2018 Consult Count Last Ordered Date First Orde red Date IP CONSULT TO CARDIOLOGY 1 07/29/2018 Admission Count Last Ordered Date First Orde red Date ASSIGN PATIENT STATUS 1 07/29/2018 CORE MEASURES Count Last Ordered Date First Ord ered Date REASON FOR NO VTE PROPHYLAXIS AT ADMISSION 4 07/29/2018 Case Request Count Last Ordered Date First Orde red Date CASE REQUEST KIER OPERATOR 1 07/29/2018 ADT Patient Update Count Last Ordered Date Firs t Ordered Date ED IP DECISION TO ADMIT 1 07/29/2018 documented in this encounter Care Teams Checker In Relationship Specialty Start Date End Date Ronald Castrejon MD PCP - General 06/21/16 07/17/22 Reynaldo Flannery DO Consulting Physician Cardiology 09/26/17 Guanakito Holland MD Consulting Physician Cardiovascular Disease 07/29/18 documented as of this encounter
--- OUTSIDE RECORDS SUMMARY | 2024-04-11 06:39 | XMS_ITS | Encounter Summary ---
Author Organization [facility] Healthcare Address [address] [place] [address] Care Team Providers Care Threat Analyst Name Role Phone Ronald Castrejon MD Primary Care Provider Renyaldo Flannery DO Unavailable [phone] Guanakito Holland MD Unavailable Jaclyn Eid RN Unavailable [phone] Encounter Details Date Type Department Care Team (Late st Contact Info) Description 09/14/2018 10:27 AM CDT Anesthesia Event [facility] Cardiac Catheterization Lab [address] [place] [address] [place] [id number] [address] [place] [address] [id number] Anesthesia Record Procedure Summary Procedure Name Responsible Anesthesiologist Anesthesia Start Time Anesthesia Stop Time IMPLANT ATRIAL PPM SYTEM WITH ATRIAL ELECTRODE (GEN AND LEAD, NEW OR REPLACE) [id number] Pankaj Durbin MD 09/14/18 1027 09/14/18 1153 Events Date Time Event Comment 09/14/2018 0934 1027 An Start 1027 An Start Data 1036 Start Supplemental O2 1036 An Induction The patient was reevaluated immediately before moderate or deep sedation use and before anesthesia induction. 1040 Anesthesia Ready 1144 an stop data 1153 Handoff to RN I completed my handoff [...] disposition at the time of handoff: PACU 1153 An Stop 1153 Chart Exception (Billing) Th is event is only to be used when the record fails to meet documentation requirements for billing and thus is unable to be signed through the regular documentation verification process. Please document reason for use: Attestations complete Meds Name Total fentaNYL 100 mcg propofol 50 mg propofol 182.6 mg lidocaine (CARDIAC) syringe 2 % 40 mg phenylephrine 700 mcg LR 600 mL * Agents Name O2 * Blood No blood administrations on file. Lines, Drains, and Airways Type Details Placement Removal RETIRED Surgical Site 09/14/18; No; Ante rior; Shoulder; 09/15/18 09/14/18 0000 by Yessy Mccormick RN 09/15/18 0000 by Mellissa Najera, BRAYAN Peripheral IV Placement Date: 09/14/18; Placement Time: 830; Change Due: 09/17/18; Catheter Size: 18 G; Orientation: Left; Location: Wrist; Site Prep: Alcohol, Chlorhexidine; Technique: Anatomical landmarks; Inserted by: zoila sr RN; Insertion Attempts: 2; Patient Tolerance: Tolerated well; Removal Date: 09/14/18; Removal Time: 235809/14/18 0831 by Jerardo Sr RN 09/14/18 235 by Mellissa Najera, BRAYAN documented in this encounter Social History Tobacco Use Types Packs/Day Years Used Date Smoking Tobacco: Former Cigarettes Q uit: 1975 Smokeless Tobacco: Never Alcohol Use Standard Drinks/Week Comments No 0 (1 standard drink = 0.6 oz pur e alcohol) Comments No Sex and Gender Information Value Date Recorded Sex Assigned at Not on file Legal Sex Female 11:18 AM CHIEF LIBRARIAN WORK WITH BLIND Gender Identity Female 10/09/2022 9:08 AM CDT Sexual Orientation Choose not to disclose 2022 9:08 AM CDT documented as of this encounter OR Notes * Anesthesia Postprocedure Evaluation - Pankaj Durbin MD - 09/14/2018 12:06 PM CDT Patient: Abena Hall Procedure Summary Date: 09/14/18 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 Anesthesia Start: 1027 Anesthesia Stop: 1153 Procedure: IMPLANT ATRIAL PPM SYTEM WITH ATRIAL ELECTRODE (GEN AND LEAD, NEW OR REPLACE) 51192 - LEAD REVISION ONLY (N/A ) Diagnosis: (LEAD DISLODGEMENT) Provider: Reynaldo Flannery DO Responsible Provider: Pankaj Durbin MD Anesthesia Type: general/TIVA ASA Status: 4 Anesthesia Type: general/TIVA Last vitals BP 143/87 Pulse 77 Temp 36.1 ??C (97 ??F) (Temporal) Resp (!) 7 SpO2 96% Anesthesia Post Evaluation Patient location during evaluation: PACU Patient participation: complete - patient participated Level of consciousness: fully awake Pain score: 0 Pain management: adequate Airway patency: adequate Evidence of recall: no Anesthetic complications: no Cardiovascular status: acceptable Respiratory status: acceptable Hydration status: acceptable Pt is: normothermic Nausea/Vomiting status: none * Anesthesia Preprocedure Evaluation - Jarrett Bolivar MD - 09/14/2018 9:29 AM CDT Anesthesia Evaluation Abena Hall is a 78 y.o. female Procedure(s): IMPLANT ATRIAL PPM SYTEM WITH ATRIAL ELECTRODE (GEN AND LEAD, NEW OR REPLACE) 72019 - LEAD REVISIONONLY * No Diagnosis Codes entered * HISTORY Past Medical History Information obtained from: patient and chart. Neurological + Psychiatric history - anxiety and depression Cardiovascular + Hypertension + Hyperlipidemia + CAD + MT Number of MT's: 2. Date of last MT: 2018. + Unknown stent(s) type - Prior stent(s) date: 2014. + Current valvular disease - MR - moderate; + Atrial fibrillation/flutter - + PAD/Aorta disease - current AAA. Comments: Echocardiogram Report Patient Name: ABENA HALL : 1940 Study Date: 07/29/2018 08:36:23 Gender: F Tech: VIRTUAL REALITY SPECIALIST Location: [place] [address] Ref.Provider: JARRETT OQUENDO Height(Cm): 155 BSA: 1.79 Weight(Kg): 74.4 Quality: Technically Difficult Study Order Provider: Silvio Procedures: Echocardiographic Report: Transthoracic echocardiogram with complete 2D, M-Mode, and color Doppler examination. Indications: Atrial Fibrillation. Measurements: 2D/M Mode Doppler Measurement Value Normal Range Measurement Value Normal Range EF Teich MM 45.0 ( 55.0 - 70.0 ) percent MALCOLM Vmax 1.59 ( 2.00 - 4.00 ) cm2 LVIDd MM 5.38 ( 3.90 - 5.30 ) cm AV Mean PG 3 ( 2 - 4 ) mmHg LVIDs MM 4.16 ( 2.30 - 3.90 ) cm AV Peak Arslan 1.24 ( 1.00 - 1.70 ) m/s LVPWd MM 1.18 ( 0.60 - 1.00 ) cm AV VTI 23.69 cm IVSd MM 1.11 ( 0.60 - 0.90 ) cm LVOT Diam 1.85 ( 1.70 - 2.10 ) cm LA Dimension 2D 4.13 ( 2.70 - 3.80 ) cm LVOT Peak Arslan 0.61 ( 0.70 - 1.10 ) m/s AoR Diam MM 2.22 ( 2.60 - 3.70 ) cm LVOT VTI 12.27 ( 20.00 - 30.00 ) cm ACS MM 1.18 cm MV E Peak Arslan 0.89 ( 0.60 - 1.30 ) m/s MV A Peak Arslan 0.37 ( 1.00 - 1.20 ) m/s MV Mean PG 1 ( <= 5 ) mmHg MV PHT 44 ( 20 - 100 ) msec MVA 5.00 MV Decel Time 151 ( 104 - 258 ) msec PV Peak Arslan 0.64 ( 0.40 - 0.80 ) m/s TR Peak Arslan 1.90 ( 1.00 - 2.80 ) m/s TR Peak PG 14 mmHg RVSP 24.00 ( 10.00 - 36.00 ) mmHg E' 0.08 E/E' 11.82 PA Pressure 14.00 ( 10.00 - 36.00 ) mmHg Findings: Atrial Septum: Normal atrial septum. [...] By: Dr Guanakito Holland 2018-07-29 15:00:34 CDT Respiratory + Sleep apnea (GENNY) Prescribed device: PAP non-compliant. Pertinent negatives: non-smoker Hepatic / Heme Hepatic/Heme system: negative Gastrointestinal + GERD - on daily therapy. Asymptomatic. Renal / Renal/ system: negative Musculoskeletal/Pain + Osteoarthritis Endocrine / Other + Obesity (BMI >30) Patient Active Problem List Diagnosis ??? Hypertension ??? Osteoarthritis ??? Hyperlipidemia ??? Coronary artery disease involving pauma coronary artery of pauma heart without angina pectoris ??? Paroxysmal atrial fibrillation (CMS/HCC) ??? Chronic GERD ??? Anxiety ??? Abdominal aortic aneurysm (AAA) without rupture (CMS/HCC) ??? Atrial fibrillation with rapid ventricular response (CMS/HCC) ??? B12 deficiency ??? Diarrhea of infectious origin ??? NSTEMI (non-ST elevated myocardial infarction) (CMS/HCC) ??? Sinus node dysfunction (CMS/HCC) Past Medical History: Diagnosis Date ??? Adiposity obesity ??? Aortic aneurysm (CMS/HCC) Pt states found by ultrasound upper abd. ??? Arthritis ??? Atrial fibrillation (CMS/HCC) ??? Coronary artery disease ??? Depression ??? Gastroesophageal reflux disease GERD ??? History of loop recorder ??? HX OTHER MEDICAL Depression, with Anxiety ??? HX OTHER MEDICAL DJD ??? HX OTHER MEDICAL a.fib ??? HX OTHER MEDICAL Atrial Fibrillation; Outcome: heart ablation ??? Hyperlipidemia Hyperlipidemia ??? Hypertension Hypertension ??? Sleep apnea ??? Vertigo Past Surgical History: Procedure Laterality Date ??? CARDIAC PACEMAKER PLACEMENT ??? CATARACT EXTRACTION W/ INTRAOCULAR LENS IMPLANT Bilateral ??? CHOLECYSTECTOMY 1981 Cholecystectomy ??? OTHER SURGICAL HISTORY Right 1980 partial oopherectomy ??? OTHER SURGICAL HISTORY heart cath with stent 2013 [facility] ??? OTHER SURGICAL HISTORY 2015 a.fib: loop recorder implanted ??? OTHER SURGICAL HISTORY 2015 Atrial Fibrillation: Cardiovascular Intervention (ablation) OB History None Allergies Allergen Reactions ??? Phenobarbital Hallucinations ??? [...] comments) severe heart pain ??? Diltiazem Itching HOME MEDICATIONS : apixaban (ELIQUIS) 5 mg tablet cholecalciferol (VITAMIN D-3) 2,000 unit tablet digestive enzymes tablet fluticasone propionate (FLONASE) 50 mcg/actuation nasal spray loratadine (CLARITIN) 10 mg tablet MAGNESIUM ORAL metoprolol XL (TOPROL-XL) 25 mg 24 hr tablet UNABLE TO FIND ALPRAZolam (XANAX) 0.5 mg tablet ascorbic acid (vitamin C) 1,000 mg tablet cyanocobalamin (Vitamin B-12) 100 mcg tablet No current facility-administered medications for this encounter. Social History Tobacco Use Smoking Status Former Smoker ??? Last attempt to quit: 1974 ??? Years since quittin.5 Smokeless Tobacco Never Used Substance and Sexual [...] Hypertension Brother Hypertension; PAT Physical Exam Vitals: 09/14/18 0819 BP: (!) 179/89 Pulse: 65 Resp: 18 Temp: 36.8 ??C (98.2 ??F) SpO2: 97% PT: No results found for requested labs [...] Medical history, medications, and allergies reviewed. Attestation: I endorse the findings of the anesthesia pre-evaluation assessment dated: 09/14/2018. Airway Exam: Mallampati: I Cervical ROM: FROM TM distance: >4 Jaw ROM: full Cardiovascular Exam: Rate: regular Rhythm: regular Pulmonary Exam: LCTA, bilat EENT Exam: trachea midline Dental Exam: Appears intact Skin Exam: Skin is warm and dry. Current state: Patient's current state is cooperative and interactive. Anesthesia Plan ASA 4 My patient is approved for the Anesthesia Controlled Medication protocol when under care of a OFFICE RUNNER Planned anesthesia: General/TIVA Team communication plan: mask Induction: Induction: intravenous. Postoperative Plan: No plan for postoperative opioid use. No postoperative mechanical ventilation intended. Patient's planned disposition post procedure is Outpatient. No trial extubation planned. Informed Consent: Discussed plan with attending and OFFICE RUNNER. Anesthesia plan and risks discussed with patient. Consent and Attending signature: I and/or my designee have discussed the anesthesia plan, benefits, possible alternatives, parental presence at time of induction (if indicated), and clinically relevant risks that may include dental injury, unintentional awareness, and/or other complications. The patient and/or parent/legal guardian understand, and agree to proceed. All questions answered. documented in this encounter Miscellaneous Notes * Addendum Note - Lizbet Stein CRNA - 09/15/2018 8:25 AM CDT Addendum created 09/15/18824 by Lizbet Stein CRNA Sign clinical note documented in this encounter Plan of Treatment Not on file documented as of this encounter Visit Diagnoses Not on filedocumented in this encounter Administered Medications Inactive Administered Medications - up to 3 most recent administrations Medication Order MAR Action Action Date Dose Rate Site fentaNYL (SUBLIMAZE) preservative free injection intravenous, As needed, Starting on Fri09/14/18 at 1053, Anesthesia Intra-op Given 09/14/2018 11:48 AM CDT 25 mcg Given 09/14/2018 11:40 AM CDT 25 mcg Given 09/14/2018 10:53 AM CDT 50 mcg Lactated Ringer's (LR) infusion Continuous PRN, Starting on Fri09/14/18 at 1030, Anesthesia Intra-op New Bag 09/14/2018 10:30 AM CDT lidocaine (cardiac) (XYLOCAINE) preservative free injection As needed, Starting on Fri09/14/18 at 1036, Anesthesia Intra-op, Indications: Ventricular ArrhythmiasIndications:Ventricular Arrhythmias Given 09/14/2018 10:36 AM CDT 40 mg phenylephrine (XAVIER-SYNEPHRINE) 1 mg/10 mL (100 mcg/mL) in sodium chloride 0.9% (premix) As needed, Starting on Fri09/14/18 at 1101, Anesthesia Intra-op Given 09/14/2018 11:22 AM CDT 100 mcg Given 09/14/2018 11:14 AM CDT 200 mcg Given 09/14/2018 11:06 AM CDT 200 mcg propofol (DIPRIVAN) IV Continuous PRN, Starting on Fri09/14/18 at 1036, Anesthesia Intra-op Rate/Dose Change 09/14/2018 11:31 AM CDT 30 mcg/kg/min 13.55 mL/hr Rate/Dose Change 09/14/2018 11:06 AM CDT 40 mcg/kg/min 18. 07 mL/hr Rate/Dose Change 09/14/2018 10:57 AM CDT 55 mcg/kg/min 24. 85 mL/hr propofol (DIPRIVAN) IV As needed, Starting on Fri09/14/18 at 1036, Anesthesia Intra-op Given 09/14/2018 10:56 AM CDT 20 mg Given 09/14/2018 10:36 AM CDT 30 mg documented in this encounter Care Teams Threat Analyst Relationship Specialty Start Date End Date Ronald Castrejon MD PCP - General 06/21/16 07/17/22 Reynaldo Flannery DO Consulting Physician Cardiology 09/26/17 Guanakito Holland MD Consulting Physician Cardiovascular Disease 07/29/18 Jaclyn Eid, RN [address] [place] [id number] Windows Application Administrator 07/31/18 11/29/18 documented as of this encounter
--- OUTSIDE RECORDS SUMMARY | 2024-04-11 06:39 | XMS_ITS | Encounter Summary ---
Author Organization [facility] Facility Care Team Providers Care Gate Cutter Name Role Phone Ronald Castrejon MD Primary Care Provider [phone] Reynaldo Flannery DO Unavailable Guanakito Holland MD Unavailable [phone] Jaclyn Eid RN Unavailable [phone] Encounter Details Date Type Department Care Team (Latest Contact Info) Description 09/14/2018 Travel Social History Tobacco Use Types Packs/Day Years Used Date Smoking Tobacco: Former Cigarettes Q uit: 1975 Smokeless Tobacco: Never Alcohol Use Standard Drinks/Week Comments No 0 (1 standard drink = 0.6 oz pur e alcohol) Comments No Sex and Gender Information Value Date Recorded Sex Assigned at Not on file Legal Sex Female 11:18 AM DESKTOP 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 Gender Identity Female 10/09/2022 9:08 AM CDT Sexual Orientation Choose not to disclose 2022 9:08 AM CDT documented as of this encounter Plan of Treatment Not on file documented as of this encounter Visit Diagnoses Not on filedocumented in this encounter Care Teams Gate Cutter Relationship Specialty Start Date End Date Ronald Castrejon MD PCP - General 06/21/16 07/17/22 Reynaldo Flannery DO Consulting Physician Cardiology 09/26/17 Guanakito Holland MD Consulting Physician Cardiovascular Disease 07/29/18 Jaclyn Eid, RN [address] [place] [id number] Glass Blower Helper 07/31/18 11/29/18 documented as of this encounter
--- OUTSIDE RECORDS SUMMARY | 2024-04-11 06:39 | XMS_ITS | Encounter Summary ---
Author Organization [facility] Address [address] [place] [address] Care Team Providers Care Family Practice Physician Name Role Phone Ronald Castrejon MD Primary Care Provider Reynaldo Flannery DO Unavailable [phone] Encounter Details Date Type Department Care Team (Late st Contact Info) Description 12/09/2017 9:30 AM CDT 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
--- OUTSIDE RECORDS SUMMARY | 2024-04-11 06:39 | XMS_ITS | Encounter Summary ---
Author Organization [facility] Medical [facility] Address [address] [place] [address] Care Team Providers Care Biometrics Analyst Name Role Phone Ronald Castrejon MD Primary Care Provider [phone] Reynaldo Flannery DO Unavailable [phone] Encounter Details Date Type Department Care Team (Late st Contact Info) Description 12/01/2017 Orders Only [facility] [address] [place] [address] Scanning, Provider Social History Tobacco Use Types Packs/Day Years Used Date Smoking Tobacco: Former Smokeless Tobacco: Never Alcohol Use Standard Drinks/Week Comments No 0 (1 standard drink = 0.6 oz pur e alcohol) Comments Unknown Sex and Gender Information Value Date Recorded Sex Assigned at Not on file Legal Sex Female 11:18 AM OXYACETYLENE CUTTER Gender Identity Female 10/09/2022 9:08 AM CDT Sexual Orientation Choose not to disclose 2022 9:08 AM CDT documented as of this encounter Plan of Treatment Not on file documented as of this encounter Procedures Procedure Name Priority Date/Time Associated Diagnosis Comments GI - RESULT 12/01/2017 3:17 PM CDT documented in this encounter Results * GI - RESULT (12/01/2017 3:17 PM CDT) Anatomical Region Laterality Modality Other us Provider Scanning Final Result documented in this encounter Visit Diagnoses Not on filedocumented in this encounter Care Teams Biometrics Analyst Relationship Specialty Start Date End Date Ronald Castrejon MD PCP - General 06/21/16 07/17/22 Reynaldo lFannery DO Consulting Physician Cardiology 09/26/17 documented as of this encounter
--- OUTSIDE RECORDS SUMMARY | 2024-04-11 06:39 | XMS_ITS | Encounter Summary ---
Author Organization [facility] Healthcare Address [address] [place] [address] Care Team Providers Care Executive Pastry Chef Name Role Phone Ronald Castrejon MD Primary Care Provider Reynaldo Flannery DO Unavailable Guanakito Holland MD Unavailable [phone] Jaclyn Eid RN Unavailable [phone] Reason for Referral * Diagnostic Imaging (Routine) - Closed Specialty Diagnoses / Procedures Referred By Danita t Referred To Contact Diagnoses Cardiac pacemaker in situ Paroxysmal atrial fibrillation (CMS/HCC) (HCC) Essential hypertension, malignant Other specified cardiac device in situ Procedures XR Chest Pa Lateral 2 Views Reynaldo Flannery DO Phone: tel: fax: [address] [address] Referral ID Status Reason Start Date Expiration Date Visits Re quested Visits Authorized [id number] Closed 09/10/2018 03/21/2020 1 1 Reason for Visit * Diagnostic Imaging (Routine) - Closed Specialty Diagnoses / Procedures Referred By Contac t Referred To Contact Diagnoses Cardiac pacemaker in situ Paroxysmal atrial fibrillation (CMS/HCC) (HCC) Essential hypertension, malignant Other specified cardiac device in situ Procedures XR Chest Pa Lateral 2 Views Reynaldo Flannery DO Phone: tel: fax: [facility] [id number] [place] [id number] Referral ID Status Reason Start Date Expiration Date Visits Re quested Visits Authorized [id number] Closed 09/10/2018 03/21/2020 1 1 Encounter Details Date Type Department Care Team (Latest Contact Info) Description 09/10/2018 12:51 PM CDT - 09/10/2018 11:59 PM CDT Hospital Encounter [facility] Diagnostic Imaging [address] [place] [id number] Reynaldo Flannery DO [address] [place] [address] Cardiac pacemaker in situ; Paroxysmal atrial fibrillation (CMS/HCC); Essential hypertension, malignant; Other specified cardiac device in situ Discharge Disposition: Discharge to home or self care Social History Tobacco Use Types Packs/Day Years Used Date Smoking Tobacco: Former Cigarettes Q uit: 1975 Smokeless Tobacco: Never Alcohol Use Standard Drinks/Week Comments No 0 (1 standard drink = 0.6 oz pur e alcohol) Comments No Sex and Gender Information Value Date Recorded Sex Assigned at Not on file Legal Sex Female 11:18 AM PATIENT MONITOR Gender Identity Female 10/09/2022 9:08 AM CDT [...] of nose together and gently massage. 9 UNABLE TO FIND Take 1 each by mouth daily tumeric 9 documented as of this encounter Discharge Disposition Disposition Code Departure Means Destination Discharge to home or self care documented in this encounter Plan of Treatment Not on file documented as of this encounter Procedures Procedure Name Priority Date/Time Associated Diagnosis Comments XR CHEST PA LATERAL 2 VIEWS Schedule Routine, Read Routine (OP Routine) 09/10/2018 12:58 PM CDT Cardiac pacemaker in situ Paroxysmal atrial fibrillation (CMS/HCC) Essential hypertension, malignant Other specified cardiac device in situ documented in this encounter Results * XR Chest Pa Lateral 2 Views (09/10/2018 12:58 PM CDT) Anatomical Region Laterality Modality Body, Chest N/A Computed Radiogr aphy 09/10/2018 1:01 PM CDT Impressions 09/10/2018 1:01 PM CDT No acute cardiopulmonary finding. Electronically signed by: Gordy Childress M.D. Narrative 09/10/2018 1:01 PM CDT RESULT: EXAMINATION: PA AND LATERAL CHEST RADIOGRAPHS Date: 09/10/2018 1:00 PM History: Cardiac pacemaker, atrial fibrillation, essential hypertension Comparison: Comparison is made to the radiographic examination dated 07/30/2018. Findings: Normal heart size. ??Left chest pacemaker. ??No pleural effusion , vascular congestion, focal consolidation, or pneumothorax. No acute osseous abnormality. Procedure Note Gordy Childress MD - 09/10/2018 RESULT: EXAMINATION: PA AND LATERAL CHEST RADIOGRAPHS Date: 09/10/2018 1:00 PM History: Cardiac pacemaker, atrial fibrillation, essential hypertension Comparison: Comparison is made to the radiographic examination dated 07/30/2018. Findings: Normal heart size. Left chest pacemaker. No pleural effusion , vascular congestion, focal consolidation, or pneumothorax. No acute osseous abnormality. IMPRESSION: No acute cardiopulmonary finding. Electronically signed by: Gordy Childress M.D. Reynaldo Flannery DO IMG XR PROCEDURES Final Result documented in this encounter Visit Diagnoses Diagnosis Cardiac pacemaker in situ Paroxysmal atrial fibrillation (CMS/HCC) (HCC) Atrial fibrillation Essential hypertension, malignant Other specified cardiac device in situ documented in this encounter Care Teams Executive Pastry Chef Relationship Specialty Start Date End Date Ronald Castrejon MD PCP - General 06/21/16 07/17/22 Reynaldo Flannery DO Consulting Physician Cardiology 09/26/17 Guanakito Holland MD Consulting Physician Cardiovascular Disease 07/29/18 Jaclyn Eid RN [address] [place] [id number] Tech Intern 07/31/18 11/29/18 documented as of this encounter
--- OUTSIDE RECORDS SUMMARY | 2024-04-11 06:39 | XMS_ITS | Encounter Summary ---
Author Organization [facility] Address [address] [place] [address] Care Team Providers Care Bobbin Painter Name Role Phone Ronald Castrejon MD Primary Care Provider [phone] Reynaldo Flannery DO Unavailable [phone] Encounter Details Date Type Department Care Team (Late st Contact Info) Description 12/03/2017 Orders Only [facility] [address] [place] [address] Ronald Castrejon MD [address] [place] [address] [address] [place] [address] Hyperlipidemia, unspecified hyperlipidemia type (Primary Dx); Vitamin D deficiency Social History Tobacco Use Types Packs/Day Years Used Date Smoking Tobacco: Former Smokeless Tobacco: Never Alcohol Use Standard Drinks/Week Comments No 0 (1 standard drink = 0.6 oz pur e alcohol) Comments Unknown Sex and Gender Information Value Date Recorded Sex Assigned at Not on file 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 Gender Identity Female 10/09/2022 9:08 AM CDT Sexual Orientation Choose not to disclose 2022 9:08 AM CDT documented as of this encounter Plan of Treatment Not on file documented as of this encounter Procedures Procedure Name Priority Date/Time Associated Diagnosis Comments CHOL/HDLC RATIO Routine 12/09/2017 9:20 AM CDT LDL-CHOLESTEROL Routine 12/09/2017 9:20 AM CDT NON HDL CHOLESTEROL Routine 12/09/2017 9 :20 AM CDT VITAMIN D 25 HYDROXY Routine 12/09/2017 9:20 AM CDT Vitamin D deficiency TRIGLYCERIDES Routine 12/09/2017 9:20 AM CDT CHOLESTEROL, HDL Routine 12/09/2017 9:20 AM CDT CHOLESTEROL, TOTAL Routine 12/09/2017 9: 20 AM CDT BASIC METABOLIC PANEL Routine 12/09/2017 9:20 AM CDT Hyperlipidemia, unspecified hyperlipidemia type documented in this encounter Results * (ABNORMAL) NON HDL CHOLESTEROL (12/09/2017 9:20 AM CDT) Non-HDL, (LDL+VLDL) 168(H) <130 mg/dL (calc) [facility] [place] Comment: For patients with diabetes plus 1 major ASCVD risk factor, treating to a non-HDL-C goal of <100 mg/dL (LDL-C of <70 mg/dL) is considered a therapeutic option. 12/09/2017 9:20 AM CDT 12/10/2017 4:50 AM CDT Narrative Resulting Agency Comment Performing Organization Information: ?Site ID: [id number] ?Name: [facility] ?Address: [address] [address] ?Director: Jerardo Krueger D.O., MPH us Ronald Castrejon MD LAB BLOOD ORDERABLES Final Res ult [email or web address] [place] * (ABNORMAL) CHOL/HDLC RATIO (12/09/2017 9:20 AM CDT) Chol/HDL ratio 5.5(H) <5.0 (calc) [facility] [place] 12/09/2017 9:20 AM CDT 12/10/2017 4:50 AM CDT Narrative Resulting Agency Comment Performing Organization Information: ?Site ID: [place] ?Name: [facility] ?Address: [address] [address] ?Director: Jerardo Krueger D.O., MPH Ronald Castrejon MD LAB BLOOD ORDERABLES Final Res ult Performing Organization Address [facility] de Phone Number [place] * (ABNORMAL) LDL-Cholesterol (12/09/2017 9:20 AM CDT) LDL 142(H) mg/dL (calc) [facility] [place] Comment: Reference range: <100 Desirable range <100 mg/dL for primary prevention; ?? <70 mg/dL for patients with CHD or diabetic patients with > or = 2 CHD risk factors. LDL-C is now calculated using the Carlos A-Claudio calculation, which is a validated novel method providing better accuracy than the Friedewald equation in the estimation of LDL-C. Carlos A HAVREY et al. VIC. 2013;310(19): 1386-0238 (http://education.Scan & Target/faq/CEV039) 12/09/2017 9:20 AM CDT 12/10/2017 4:50 AM CDT Narrative Resulting Agency Comment Performing Organization Information: ?Site ID: [place] ?Name: [facility] ?Address: [address] [address] ?Director: Jerardo Krueger D.O., MPH Ronald Castrejon MD LAB BLOOD ORDERABLES Final Res ult Performing Organization Address City/[facility] Co de Phone Number [facility] [place] * Triglycerides (12/09/2017 9:20 AM CDT) Triglycerides 133 <150 mg/dL [facility] [place] 12/09/2017 9:20 AM CDT 12/10/2017 4:50 AM CDT Narrative Resulting Agency Comment Performing Organization Information: ?Site ID: [place] ?Name: [facility] ?Address: [facility] [place] [address] ?Director: Jerardo Krueger D.O., MPH us Ronald Castrejon MD LAB BLOOD ORDERABLES Final Res ult Performing Organization Address City/[facility] Co de Phone Number [place] * (ABNORMAL) Cholesterol, HDL (12/09/2017 9:20 AM CDT) HDL 37(L) >50 mg/dL [facility] [place] 12/09/2017 9:20 AM CDT 12/10/2017 4:50 AM CDT Narrative Resulting Agency Comment Performing Organization Information: ?Site ID: [place] ?Name: [facility] ?Address: [facility] [place] [address] ?Director: Jerardo Krueger D.O. MPH Ronald Castrejon MD LAB BLOOD ORDERABLES Final Res ult Performing Organization Address City/State/[facility] Co de Phone Number [facility] [place] * (ABNORMAL) Cholesterol, total (12/09/2017 9:20 AM CDT) Cholesterol 205(H) <200 mg/dL [facility] [place] 12/09/2017 9:20 AM CDT 12/10/2017 4:50 AM CDT Narrative Resulting Agency Comment Performing Organization Information: ?Site ID: [place] ?Name: [facility] ?Address: [address] [address] ?Director: Jerardo Krueger D.O., MPH us Ronald Castrejon MD LAB BLOOD ORDERABLES Final Res ult Performing Organization Address City/[facility]/ZIP Co de Phone Number [facility] [place] * Vitamin D 25 hydroxy (12/09/2017 9:20 AM CDT) Pathologist [facility] Vitamin D 25-OH 88 30 - 100 ng/mL [facility] [place] Comment: Vitamin D Status ? 25-OH Vitamin D: Deficiency: ?<20 ng/mL Insufficiency: ? 20 - 29 ng/mL Optimal: ? > or = 30 ng/mL For 25-OH Vitamin D testing on patients on D2-supplementation and patients for whom quantitation of D2 and D3 fractions is required, the QuestAssureD(TM) 25-OH VIT D, (D2,D3), LC/MS/MS is recommended: order code 70578 (patients >2yrs). For more information on this test, go to: http://education.Ziliko/faq/ABA614 (This link is being provided for informational/educational purposes only.) Blood specimen (specimen) 12/09/2017 9:20 AM CDT 12/10/2017 4:50 AM CDT Narrative Resulting Agency Comment Performing Organization Information: ?Site ID: [place] ?Name: [facility] ?Address: [address] [phone] ?Director: Jerardo Krueger D.O., MPH us Ronald Castrejon MD LAB BLOOD ORDERABLES Final Res ult Performing Organization Address City/[facility]/ZIP Co de Phone Number [facility] [place] * (ABNORMAL) Basic metabolic panel (12/09/2017 9:20 AM CDT) Glucose 116(H) 65 - 99 mg/dL [facility] [place] Comment: ? Fasting reference interval For someone without known diabetes, a glucose value between 100 and 125 mg/dL is consistent with prediabetes and should be confirmed with a follow-up test. BUN 18 7 - 25 mg/dL [facility] [place] Creatinine 0.76 0.60 - 0.93 mg/dL [facility] [place] Comment: For patients >49 years of age, the reference limit for Creatinine is approximately 13% higher for people identified as -Lithuanian. eGFR NON-AFR. CHINESE 76 > OR = 60 mL/min/1 .73m2 [facility] [place] EGFR 88 > OR = 60 mL/min/1 .73m2 [facility] [place] BUN/creat ratio NOT APPLICABLE 6 - 22 (calc) [facility] [place] Sodium 142 135 - 146 mmol/L [facility] [place] Potassium, pl 4.7 3.5 - 5.3 mmol/L [facility] [place] Chloride 104 98 - 110 mmol/L [facility] [place] CO2 29 20 - 32 mmol/L [facility] [place] Calcium 10.2 8.6 - 10.4 mg/dL [facility] [place] Blood specimen (specimen) 12/09/2017 9:20 AM CDT 12/10/2017 4:50 AM CDT Narrative Resulting Agency Comment Performing Organization Information: ?Site ID: [place] ?Name: [facility] ?Address: [address] [place] [address] ?Director: Jerardo Krueger D.O., MPH us Ronald Castrejon MD LAB BLOOD ORDERABLES Final Res ult [facility] [place] documented in this encounter Visit Diagnoses Diagnosis Hyperlipidemia, unspecified hyperlipidemia type- Primary Vitamin D deficiency documented in this encounter Orders Lab Orders Without Results Count Last Ordered D ate First Ordered Date LIPID PANEL WITH REFLEX TO DIRECT LDL 1 02/2018 documented in this encounter Care Teams Bobbin Painter Relationship Specialty Start Date End Date Ronald Castrejon MD PCP - General 06/21/16 07/17/22 Reynaldo Flannery DO Consulting Physician Cardiology 09/26/17 documented as of this encounter
--- OUTSIDE RECORDS SUMMARY | 2024-04-11 06:39 | XMS_ITS | Encounter Summary ---
Author Organization [facility] Healthcare Address [address] [place] [address] Care Team Providers Care Ticket Sales Agent Name Role Phone Ronald Castrejon MD Primary Care Provider [phone] Reynaldo Flannery DO Unavailable [phone] Encounter Details Date Type Department Care Team (Latest Contact Info) Description 09/25/2017 11:13 AM CDT - 09/26/2017 12:22 PM CDT Hospital Encounter [facility] [address] [place] [address] [place] [address] [place] [address] [place] [address] [place] [address] [place] [address] [place] [address] Discharge Disposition: Discharge to home or self care Social History Tobacco Use Types Packs/Day Years Used Date Smoking Tobacco: Former Smokeless Tobacco: Never Alcohol Use Standard Drinks/Week Comments No 0 (1 standard drink = 0.6 oz pur e alcohol) Comments Unknown Sex and Gender Information Value Date Recorded Sex Assigned at Not on file Legal Sex Female 11:18 AM [employer] Gender Identity Female 10/09/2022 9:08 AM CDT Sexual Orientation Choose not to disclose 2022 9:08 AM CDT documented as of this encounter Last Filed Vital Signs Vital Sign Reading Time Taken Comments Blood Pressure 128/76 09/26/2017 11:33 AM CDT Pulse 61 09/26/2017 11:33 AM CDT Temperature 37.1 ??C (98.7 ??F) 09/26/2017 11:33 AM C DT Respiratory Rate 18 09/26/2017 11:33 AM CDT Oxygen Saturation 97% 09/26/2017 11:33 AM CDT Inhaled Oxygen Concentration - - Weight 77.2 kg (170 lb 3.1 oz) 09/25/2017 11:09 AM CDT Height 156.2 cm (5' 1.5 ) 09/25/2017 11:09 AM CD T Body Mass Index 31.64 09/25/2017 11:09 AM CDT documented in this encounter Discharge Summaries * Fran Phan, - 09/26/2017 10:36 AM CDT Inpatient Discharge Summary BRIEF OVERVIEW Admitting Provider: Leydi Lopez MD Discharge Provider: Fran Phan,* Primary Care Physician at Discharge: Ronald Castrejon MD [phone] Admission Date: 09/25/2017 Discharge Date: 09/26/2017 Primary Discharge Diagnosis: Afib with rvr Secondary Discharge Diagnosis: Atrial fibrillation with RVR (CMS/HCC) Hypertension Osteoarthritis Hyperlipidemia Coronary artery disease involving [place] coronary artery of [place] heart without angina pectoris Paroxysmal atrial fibrillation (CMS/HCC) Chronic GERD Anxiety Abdominal aortic aneurysm (AAA) without rupture (CMS/HCC) * No resolved hospital problems. * DETAILS OF HOSPITAL STAY Presenting Problem/History of Present Illness: Patient is a 77 y.o. female with a PMHx significant for paroxysmal AFib with prior ablation, loop recorder in place, abdominal aortic aneurysm, anxiety, GERD, CAD status post [place] with stents, HLD, OA . Presents to the ED with a chief complaint of epigastric pain. Patient presented to [facility] Emergency Department this morning approximately 4:30 a.m. after she had a severe episode ofGERD and reflux. Unable to control with her usual home therapies. Relates that to eating ice cream yesterday evening. Home therapies included her Prevacid, digestive enzymes and Mucinex gargle. Her symptoms were unrelieved therefore she presented to the emergency department. Actually describes her pain as lower abdominal pain and throat ???burning ???. Did have some dizziness and dry cough. Reports frequent episodes but not this severe. On arrival to the ED, EKG showed AFib RVR 144. She was given 20 mg of IV diltiazem and reports that she had a pruritic rash like reaction. She refused any further medications. Outpatient she sees Dr. Holland in Cardiology and Dr. Camarena electrophysiology. She does have a loop recorder in place and reports that the per electrophysiology she has multiple episodes of atrial fibrillation. She has had a prior ablation. Last saw him 3 weeks ago. [facility] and was direct admitted to telemetry. At [facility] her initial troponin is negative, chemistry and WBC unremarkable, INR 1.02, chest x-ray negative. Hospital Course: Cardio was consulted. Patient evalauted and was in sinus hailey with occasional PAF. Patient stable for discharge with instructions to follow up. Patient went 24 hours without going into afib. Discharge Details Physical Exam at Discharge: Discharge Condition: stable Pulse: 62 Resp: 18 BP: 157/70 Temp: 36.7 ??C (98.1 ??F) Weight: 77.2 kg (170 lb 3.1 oz) Pertinent Exam Findings at Discharge: no new physical exam findings at time of discharge Discharge Disposition: Discharge to a critical access hospital Code Status at Discharge: full code Discharge Instructions: Activity Instructions Discharge activity: Resume normal activity Diet Instructions Adult Discharge Diet Diet Type: Return to previous diet Other Instructions Call provider for: Temperature -Temperature greater than 101 degrees F Call provider for: difficulty breathing or chest pain Call provider for: extreme fatigue Call provider for: hives Call provider for: persistent dizziness or light-headedness Call provider for: persistent nausea or vomiting Call provider for: redness, tenderness, or signs of infection (pain, swelling, redness, odor or green/yellow discharge around incision site) Call provider for: severe uncontrolled pain Call provider for: headache, visual disturbances, weakness and speech changes Discharge Medications: Your medication list START taking these medications docusate sodium 100 mg capsule Commonly known as: COLACE Take 1 capsule (100 mg total) by mouth 2 (two) times a day as needed for constipation. CONTINUE taking these medications ALPRAZolam 0.5 mg tablet Commonly known as: XANAX calcium acetate 667 mg capsule Commonly known as: PHOSLO cholecalciferol 2,000 unit tablet Commonly known as: VITAMIN D-3 take 1 tablet by oral route every day cyanocobalamin 100 mcg tablet Commonly known as: Vitamin B-12 digestive enzymes tablet ELIQUIS 5 mg tablet Generic drug: apixaban take 1 tablet by oral route 2 times every day fluticasone 50 mcg/actuation nasal spray Commonly known as: FLONASE INHALE 2 SPRAY BY INTRANASAL ROUTE EVERY DAY IN EACH NOSTRIL lansoprazole 15 mg capsule Commonly known as: PREVACID Outpatient Follow-Up: Future Appointments Date Time Provider Department Center 10/16/2017 9:30 AM Ronald Catherine MD NEURO [facility] 6 OP 12/09/2017 9:30 AM MG A[facility], LAB AIM [facility] 12/23/2017 2:00 PM Ronald Castrejon MD AIM [facility] Contact Information for Follow-ups primary care provider For post hopsital care Next Steps: Follow up Questions: Instructions for follow-up: For post hopsital care Ronald Castrejon MD Specialty: Internal Medicine Relationship: PCP - General Nikhil [address] [place] [address] Next Steps: Follow up Ronald Castrejon MD Specialty: Internal Medicine Relationship: PCP - [facility] Attributed PCP 2 [address] [facility] [address] Next Steps: Follow up Reynaldo Flannery DO Specialty: Cardiology, Cardiovascular Disease, Internal Medicine, Clinical Cardiac Electrophysiology Relationship: Consulting Physician [address] [place] [address] DR MEEK [address] [facility] [id number] Next Steps: Follow up Instructions: Follow up in 2 weeks with band and cuff cutter Questions: Instructions for follow-up: Follow up in 2 weeks with band and cuff cutter documented in this encounter Medications at Time [...] daily. 9 documented as of this encounter Ordered Prescriptions Prescription Sig Dispense Quantity Refills Last Filled Start Date End Date docusate sodium (COLACE) 100 mg capsuleIndications :constipation Take 1 capsule (100 mg total) by mouth 2 (two) times a day as needed for constipation. 60 capsule 09/26/2017 8 documented in this encounter Discharge Disposition Disposition Code Departure Means Destination Discharge to home or self care documented in this encounter Progress Notes * Siobhan Weber NP - 09/26/2017 10:12 AM CDT Electrophysiology Daily Progress Note SUBJECTIVE: Denies chest pain or sob. Remains SB on monitor. OBJECTIVE: Vitals: 09/26/17 0030 09/26/17 0353 09/26/17 0413 09/26/17 0750 BP: 162/66 153/62 157/70 BP Location: Right arm Right arm Right arm Patient Position: Lying Lying Sitting Pulse: 61 57 61 62 Resp: Temp: 36.6 ??C (97.8 ??F) 36.3 ??C (97.4 ??F) 36.7 ??C (98.1 ??F) TempSrc: Oral Oral Oral SpO2: 98% 99% 99% Weight: Height: I/O last 2 completed shifts: In: 240 [P.O.:240] Out: 0 I/O this shift: In: 240 [P.O.:240] Out: 250 [Urine:250] Physical Exam: General: in no apparent distress Neuro: Alert and oriented x 3, HEENT: normocephalic, atraumatic Lungs: symmetric, unlabored, clear to auscultation bilaterally Heart: S1,S2, regular rate & rhythm Abdomen: soft, non-tender, non-distended, bowel sounds present Extremities: no LE edema, palpable peripheral pulses BL ?? LABS: Recent Results (from the past 48 hour(s)) CBC with auto differential Collection Time: 09/25/17 4:23 AM Result Value Ref Range WBC 12.0 (H) 3.8 - 9.9 K/cumm RBC 4.95 3.90 - 5.20 M/cumm Hgb 15.2 11.9 - 15.5 g/dL Hct 44.4 35.6 - 45.5 % MCV 89.7 81.3 - 96.4 fL MCH 30.7 27.1 - 33.3 pg MCHC 34.2 32.3 - 35.7 g/dL RDW CV 12.4 11.1 - 14.9 % RDW SD 40.1 35.7 - 48.1 fL Plt 255 150 - 400 K/cumm MPV 10.7 9.1 - 12.3 fL NRBC Abs 0.00 0.00 - 0.01 K/cumm Comprehensive metabolic panel Collection Time: 09/25/17 4:23 AM Result Value Ref Range Sodium 139 135 - 145 mmol/L Potassium, pl 4.2 3.3 - 4.9 mmol/L Chloride 100 97 - 110 mmol/L CO2 24 22 - 32 mmol/L Anion Gap 15 2 - 15 mmol/L BUN 14 8 - 25 mg/dL Creatinine 0.61 0.60 - 1.10 mg/dL Glucose 153 70 - 199 mg/dL Calcium 9.8 8.5 - 10.3 mg/dL Bilirubin, total 0.4 0.1 - 1.2 mg/dL Protein, pl 7.6 6.5 - 8.5 g/dL Albumin 4.2 3.5 - 5.0 g/dL Alk phos 58 40 - 130 Units/L ALT 17 7 - 45 Units/L AST 19 10 - 45 Units/L Lipase Collection Time: 09/25/17 4:23 AM Result Value Ref Range Lipase 49 10 - 99 Units/L Troponin T Collection Time: 09/25/17 4:23 AM Result Value Ref Range Troponin T <0.01 0.00 - 0.06 ng/mL Protime-INR Collection Time: 09/25/17 4:23 AM Result Value Ref Range PT 11.5 9.5 - 13.0 sec INR 1.02 0.90 - 1.20 aPTT Collection Time: 09/25/17 4:23 AM Result Value Ref Range APTT 27.1 25.0 - 37.0 sec Differential, auto Collection Time: 09/25/17 4:23 AM Result Value Ref Range Neutrophil absolute 8.0 (H) 1.7 - 6.5 K/cumm Immature granulocyte absolute 0.1 0.0 - 0.1 K/cumm Lymphocytes absolute 2.9 0.8 - 3.3 K/cumm Monocyte absolute 0.9 (H) 0.2 - 0.8 K/cumm Eosinophils absolute 0.1 0.0 - 0.5 K/cumm Basophils, abs 0.1 0.0 - 0.1 K/cumm Neutrophils 66.6 % Immature granulocytes 0.5 % Lymphocytes 24.2 % Monocytes 7.3 % Eosinophils 0.9 % Basophils 0.5 % eGFR Collection Time: 09/25/17 4:23 AM Result Value Ref Range GFR >60 mL/min/1.73 m2 Magnesium Collection Time: 09/26/17 5:12 AM Result Value Ref Range Magnesium 1.9 1.8 - 2.6 mg/dL Basic metabolic panel Collection Time: 09/26/17 5:12 AM Result Value Ref Range Sodium 137 135 - 145 mmol/L Potassium, pl 4.3 3.5 - 5.1 mmol/L Chloride 104 100 - 114 mmol/L CO2 28 22 - 32 mmol/L Anion Gap 9 8 - 16 mmol/L BUN 14 8 - 24 mg/dL Creatinine 0.82 0.60 - 1.30 mg/dL Glucose 115 70 - 199 mg/dL Calcium 9.1 8.4 - 10.5 mg/dL CBC with auto differential Collection Time: 09/26/17 5:12 AM Result Value Ref Range WBC 7.8 3.8 - 9.9 K/cumm RBC 4.22 3.90 - 5.20 M/cumm Hgb 13.1 11.9 - 15.5 g/dL Hct 39.9 35.6 - 45.5 % MCV 94.5 81.3 - 96.4 fL MCH 31.0 27.1 - 33.3 pg MCHC 32.8 32.3 - 35.7 g/dL RDW CV 12.8 11.1 - 14.9 % RDW SD 44.4 35.7 - 48.1 fL Plt 200 150 - 400 K/cumm MPV 10.9 9.1 - 12.3 fL NRBC Abs 0.00 0.00 - 0.01 K/cumm Differential, auto Collection Time: 09/26/17 5:12 AM Result Value Ref Range Neutrophil absolute 4.1 1.7 - 6.5 K/cumm Immature granulocyte absolute 0.0 0.0 - 0.1 K/cumm Lymphocytes absolute 2.9 0.8 - 3.3 K/cumm Monocyte absolute 0.6 0.2 - 0.8 K/cumm Eosinophils absolute 0.1 0.0 - 0.5 K/cumm Basophils, abs 0.1 0.0 - 0.1 K/cumm Neutrophils 52.1 % Immature granulocytes 0.5 % Lymphocytes 37.1 % Monocytes 7.9 % Eosinophils 1.5 % Basophils 0.9 % eGFR Collection Time: 09/26/17 5:12 AM Result Value Ref Range GFR 69 mL/min/1.73 m2 EKG: Results for orders placed during the hospital encounter of 09/25/17 ECG 12 lead ASSESSMENT/PLAN: 1. PAF, prior PVI 12/2015. Still with occasional PAF and tachy but rare. None since 06/2017 until this AM. 2. SSS, unable to tolerate antiarrhythmic Rx without PPM, but she refuses. Will continue current Rx. Stable for DC home today as remains in sinus rhythm. Continue Eliquis for AC. Siobhan Weber NP, MSN, ANP-[facility] 09/26/2017 10:12 AM documented in this encounter H&P Notes * Nancy Parker NP - 09/25/2017 1:35 PM CDT History and Physical Date of Service: 09/25/2017 Primary Care Physician: Ronald Castrejon MD [phone] SUBJECTIVE: Patient is a 77 y.o. female with a PMHx significant for paroxysmal AFib with prior ablation, loop recorder in place, abdominal aortic aneurysm, anxiety, GERD, CAD status post [place] with stents, HLD, OA . Presents to the ED with a chief complaint of epigastric pain. HPI: Patient presented to [facility] Emergency Department this morning approximately 4:30 a.m. after she had a severe episode of GERD and reflux. Unable to control with her usual home therapies. Relates that to eating ice cream yesterday evening. Home therapies included her Prevacid, digestive enzymes and Mucinex gargle. Her symptoms were unrelieved therefore she presented to the emergency department. Actually describes her pain as lower abdominal pain and throat ???burning ???. Did have some dizziness and dry cough. Reports frequent episodes but not this severe. On arrival to the ED,EKG showed AFib RVR 144. She was given 20 mg of IV diltiazem and reports that she had a pruritic rash like reaction. She refused any further medications. Outpatient she sees Dr. Holland in Cardiology and Dr. Camarena electrophysiology. She does have a loop recorder in place and reports that the per electrophysiology she has multiple episodes of atrial fibrillation. She has had a prior ablation. Last saw him 3 weeks ago. She requested transfer to [facility] and was direct admitted to telemetry. At [facility] her initial troponin is negative, chemistry and WBC unremarkable, INR 1.02, chest x-ray negative. The she denies fevers, chills, chest pain, palpitations, shortness of breath, diaphoresis, nausea or vomiting, diarrhea or dysuria. She does have some chronic back pain. Past Medical History: Diagnosis Date ??? Adiposity [...] Medication Sig Dispense Refill Last Dose ??? calcium acetate (PHOSLO) 667 mg capsule Take 667 mg by mouth 3 (three) times a day with meals. 09/24/2017 at Unknown time ??? ALPRAZolam (XANAX) 0.5 mg tablet 09/25/2017 at Unknown time ??? apixaban (ELIQUIS) 5 mg tablet take 1 tablet by oral route 2 times every day 0 0 09/24/2017 at Unknown time ??? cholecalciferol (VITAMIN D-3) 2,000 unit tablet take 1 tablet by oral route every day 90 3 09/24/2017 at Unknown time ??? cyanocobalamin (Vitamin B-12) 100 mcg tablet Take 100 mcg by mouth daily. 09/24/2017 at Unknown time ??? digestive enzymes tablet Take by mouth. 09/25/2017 at 0700 ??? fluticasone (FLONASE) 50 mcg/actuation nasal spray INHALE 2 SPRAY BY INTRANASAL ROUTE EVERY DAYIN EACH NOSTRIL 16 g 11 Unknown at Unknown time ??? lansoprazole (PREVACID) 15 mg capsule Take 15 mg by mouth daily. 09/25/2017 at Unknown time Allergies Allergen Reactions ??? [...] Systems: Review of Systems Constitutional: Negative for chills, diaphoresis, fatigue and fever. HENT: Positive for sore throat. Negative for congestion, ear pain, hearing loss, sinus pressure andtinnitus. Eyes: Negative for pain and discharge. Respiratory: Negative for apnea, cough, chest tightness, shortness of breath and wheezing. Cardiovascular: Negative for chest pain, palpitations and leg swelling. Gastrointestinal: Positive for abdominal pain. Negative for abdominal distention, constipation, diarrhea, nausea and vomiting. Endocrine: Negative for polydipsia, polyphagia and polyuria. Genitourinary: Negative for dysuria, hematuria and urgency. Musculoskeletal: Positive for back pain. Negative for arthralgias and myalgias. Skin: Negative for rash and wound. Allergic/Immunologic: Negative for food allergies. Neurological: Negative for dizziness, tremors, seizures, syncope, weakness, light-headedness and headaches. Hematological: Negative for adenopathy. Psychiatric/Behavioral: Negative for confusion and hallucinations. The patient is not nervous/anxious. OBJECTIVE: Vitals: Arrival Vitals [09/25/17 1109] Temp 36.7 ??C (98.1 ??F) Pulse 75 Resp 20 BP 140/73 SpO2 98 % Temp src Oral Heart Rate Source Patient Position Lying BP Location Right arm FiO2 (%) Most Recent : Vitals: 09/25/17 1109 BP: 140/73 BP Location: Right arm Patient Position: Lying Pulse: 75 Resp: 20 Temp: 36.7 ??C (98.1 ??F) TempSrc: Oral SpO2: 98% No intake/output data recorded. No intake/output data recorded. Physical Exam: Physical Exam Constitutional: She is oriented to person, place, and time. She appears well- developed and well-nourished. No distress. HENT: Head: Normocephalic and atraumatic. Mouth/Throat: Oropharynx is clear and moist. Eyes: EOM are normal. Pupils are equal, round, and reactive to light. Neck: Normal range of motion. Neck supple. No JVD present. No tracheal deviation present. No thyromegaly present. Cardiovascular: Normal rate, regular rhythm, normal heart sounds and intact distal pulses. Exam reveals no friction rub. No murmur heard. Does have some tenderness at the site of her loop recorder Pulmonary/Chest: Effort normal and breath sounds normal. No respiratory distress. She has no wheezes. She has no rales. She exhibits no tenderness. Abdominal: Soft. Bowel sounds are normal. She exhibits no distension and no mass. There is no tenderness. There is no guarding. Musculoskeletal: Normal range of motion. She exhibits no edema. Lymphadenopathy: She has no cervical adenopathy. Neurological: She is alert and oriented to person, place, and time. Skin: Skin is warm and dry. Capillary refill takes less than 2 seconds. No rash noted. She is not diaphoretic. Psychiatric: She has a normal mood and affect. Her behavior is normal. Vitals reviewed. Lab/Radiology/Diagnostic Review: Recent Results (from the past 24 hour(s)) CBC with auto differential Collection Time: 09/25/17 4:23 AM Result Value Ref Range WBC 12.0 (H) 3.8 - 9.9 K/cumm RBC 4.95 3.90 - 5.20 M/cumm Hgb 15.2 11.9 - 15.5 g/dL Hct 44.4 35.6 - 45.5 % MCV 89.7 81.3 - 96.4 fL MCH 30.7 27.1 - 33.3 pg MCHC 34.2 32.3 - 35.7 g/dL RDW CV 12.4 11.1 - 14.9 % RDW SD 40.1 35.7 - 48.1 fL Plt 255 150 - 400 K/cumm MPV 10.7 9.1 - 12.3 fL NRBC Abs 0.00 0.00 - 0.01 K/cumm Comprehensive metabolic panel Collection Time: 09/25/17 4:23 AM Result Value Ref Range Sodium 139 135 - 145 mmol/L Potassium, pl 4.2 3.3 - 4.9 mmol/L Chloride 100 97 - 110 mmol/L CO2 24 22 - 32 mmol/L Anion Gap 15 2 - 15 mmol/L BUN 14 8 - 25 mg/dL Creatinine 0.61 0.60 - 1.10 mg/dL Glucose 153 70 - 199 mg/dL Calcium 9.8 8.5 - 10.3 mg/dL Bilirubin, total 0.4 0.1 - 1.2 mg/dL Protein, pl 7.6 6.5 - 8.5 g/dL Albumin 4.2 3.5 - 5.0 g/dL Alk phos 58 40 - 130 Units/L ALT 17 7 - 45 Units/L AST 19 10 - 45 Units/L Lipase Collection Time: 09/25/17 4:23 AM Result Value Ref Range Lipase 49 10 - 99 Units/L Troponin T Collection Time: 09/25/17 4:23 AM Result Value Ref Range Troponin T <0.01 0.00 - 0.06 ng/mL Protime-INR Collection Time: 09/25/17 4:23 AM Result Value Ref Range PT 11.5 9.5 - 13.0 sec INR 1.02 0.90 - 1.20 aPTT Collection Time: 09/25/17 4:23 AM Result Value Ref Range APTT 27.1 25.0 - 37.0 sec Differential, auto Collection Time: 09/25/17 4:23 AM Result Value Ref Range Neutrophil absolute 8.0 (H) 1.7 - 6.5 K/cumm Immature granulocyte absolute 0.1 0.0 - 0.1 K/cumm Lymphocytes absolute 2.9 0.8 - 3.3 K/cumm Monocyte absolute 0.9 (H) 0.2 - 0.8 K/cumm Eosinophils absolute 0.1 0.0 - 0.5 K/cumm Basophils, abs 0.1 0.0 - 0.1 K/cumm Neutrophils 66.6 % Immature granulocytes 0.5 % Lymphocytes 24.2 % Monocytes 7.3 % Eosinophils 0.9 % Basophils 0.5 % eGFR Collection Time: 09/25/17 4:23 AM Result Value Ref Range GFR >60 mL/min/1.73 m2 Xr Chest 1 Vw Portable Result Date: 09/25/2017 Narrative: XR CHEST 1 VIEW HISTORY: Dyspnea. Cough and sore throat. COMPARISON: 05/16/2017 FINDINGS: One view of the chest obtained at 04:10 hrs demonstrates clear lungs bilaterally with no focal infiltrates. The heart size and pulmonary vascularity are normal. Impression: NO ACTIVE CARDIOPULMONARY DISEASE. Electronically signed by: Daniel Crawford M.D. ASSESSMENT/PLAN: Principal Problem: Atrial fibrillation with RVR (CMS/HCC) Active Problems: Hypertension Osteoarthritis Hyperlipidemia Coronary artery disease involving [place] coronary artery of [place] heart without angina pectoris Paroxysmal atrial fibrillation (CMS/HCC) Chronic GERD Anxiety Abdominal aortic aneurysm (AAA) without rupture (CMS/HCC) 1. AFib RVR-initially 144. History of proximal AFib with loop recorder in place. Did receive 1 doseof IV diltiazem which she appears to have had an allergic reaction, pruritic rash now resolved. Currently she is in normal sinus rhythm, heart rate in the 70s. Her network operations manager has been consulted. Request that the loop recorder is interrogated. Did have some dizziness. Allergy to sotalol andnow diltiazem. She is on no medication for rate control at home. Hold eliquis pending cards consult-ablation vs. PPM. Cardiology consult pending. 2. GERD-her symptoms resolved after she received a GI cocktail. Omeprazole will be substituted for her home Prevacid. She reports difficulty taking generic medications. Will have to see if she can tolerate this. Continue her digestive enzymes. 3. Hypertension-history of per notes. Patient denies history of hypertension. Though she states shehas tried multiple medications for blood pressure with reactions. Her blood pressure is under controlled. On no home antihypertensives. Vital signs per floor routine. 4. Anxiety-continue p.r.n. Xanax. 5. DVT prophylaxis-on Eliquis. 6. Full Code ESTIMATED LENGTH OF STAY: < one midnight Nancy Parker NP 09/25/2017 1:43 PM Cosigned by Fran Phan DO at 09/25/2017 4:22 PM CDT documented in this encounter Consult Notes * Reynaldo Flannery DO - 09/25/2017 2:10 PM CDTAssociated Order(s): IP CONSULT TO CARDIOLOGY Electrophysiology Consult Note-[facility] Date of Consult: 09/25/2017 Patient's Primary Care Physician: Ronald Castrejon MD Physician Requesting Consult: Cash Reason for Consultation: AFIB with tachy Name: Abena Giron Age: 77 y.o. Race: Sex: female Chief Complaint/History of Present Illness Transferred today from [facility] due to afib with RVR. Known to me with PAF and SSS, S/P PVI 12/2015. Has severe SSS, developed sinus hailey 30's with pauses after only 1 dose of Sotalol, therefore can't tolerate any antiarrhythmic Rx for AF without PPM, which she is reluctant to do. Has done well since PVI, but started having recurring PAF in 06/2017. Minimal episodes, but quite tachy HR 180 with episodes. This AM with recurrent AF and HR 140's. Given IV diltiazem with pruritis and rash. Currently back in sinus rhythm. Feels well. No CP or SOB. Has GERD. Past Medical History: Diagnosis Date ??? Adiposity [...] SURGICAL HISTORY heart cath with stent 2013 [facility] ??? OTHER SURGICAL HISTORY 2015 a.fib: loop recorder implanted ??? OTHER SURGICAL HISTORY 2015 Atrial Fibrillation: Cardiovascular Intervention Family History Problem [...] children: N/A ??? Years of education: N/A Social History Main Topics ??? Smoking status: Former Smoker ??? Smokeless tobacco: Never Used ??? Alcohol use No ??? Drug use: No ??? Sexual activity: Defer Other Topics Concern ??? None Social History Narrative Agrees to blood/blood products: Y Agrees to blood/blood products: Y Prescriptions Prior to Admission Medication Sig Dispense Refill Last Dose ??? calcium acetate (PHOSLO) 667 mg capsule Take 667 mg by mouth 3 (three) times a day with meals. 09/24/2017 at Unknown time ??? ALPRAZolam (XANAX) 0.5 mg tablet 09/25/2017 at Unknown time ??? apixaban (ELIQUIS) 5 mg tablet take 1 tablet by oral route 2 times every day 0 0 09/24/2017 at Unknown time ??? cholecalciferol (VITAMIN D-3) 2,000 unit tablet take 1 tablet by oral route every day 90 3 09/24/2017 at Unknown time ??? cyanocobalamin (Vitamin B-12) 100 mcg tablet Take 100 mcg by mouth daily. 09/24/2017 at Unknown time ??? digestive enzymes tablet Take by mouth 3 (three) times a day with meals. 09/25/2017 at 0700 ??? fluticasone (FLONASE) 50 mcg/actuation nasal spray INHALE 2 SPRAY BY INTRANASAL ROUTE EVERY DAYIN EACH NOSTRIL 16 g 11 Unknown at Unknown time ??? lansoprazole (PREVACID) 15 mg capsule Take 15 mg by mouth daily. 09/25/2017 at Unknown time Allergies Allergen Reactions ??? [...] ??? Phenobarbital ??? Sotalol ??? Diltiazem Itching MEDICATIONS FOR CURRENT ENCOUNTER: SCHEDULED MEDICATIONS: Scheduled Medications Medication Dose Route Frequency ??? calcium acetate (PHOSLO) capsule 667 mg 667 mg oral TID with meals ??? cholecalciferol (VITAMIN D-3) tablet/capsule 2,000 Units 2,000 Units oral Daily ??? cyanocobalamin (Vitamin B-12) tablet 100 mcg 100 mcg oral Daily ??? enoxaparin (LOVENOX) syringe 40 mg 40 mg subcutaneous Daily-2100 ??? fluticasone (FLONASE) 50 mcg/actuation nasal spray 2 spray 2 spray each nostril Daily ??? pantoprazole DR (PROTONIX) extended release tablet 40 mg 40 mg oral Daily ??? sodium chloride 0.9% flush 0.5-20 mL 0.5-20 mL intra-catheter Q8H NAVEED ??? sodium chloride 0.9% flush 0.5-20 mL 0.5-20 mL intra-catheter Q8H NAVEED ?? CONTINUOUS MEDICATIONS: Continuous Medications Medication Dose Last Rate ?? PRN MEDICATIONS: PRN Medications Medication Dose Route Frequency Last Dose ??? acetaminophen (TYLENOL) tablet 650 mg 650 mg oral Q4H PRN ? ? al & mag hydroxide simethicone-lidocaine oral suspension mixture 40 mL oral Once PRN ??? docusate sodium (COLACE) capsule 100 mg 100 mg oral BID PRN ??? ondansetron (ZOFRAN) injection 4 mg 4 mg intravenous Q6H PRN ??? sodium chloride 0.9% flush 0.5-20 mL 0.5-20 mL intra-catheter PRN ??? sodium chloride 0.9% flush 0.5-20 mL 0.5-20 mL intra-catheter PRN ?? Review of Systems 11 point system review was obtained all pertinent positives and negatives have been listed in the HPI. Exam Patient Vitals for the past 24 hrs: BP Temp Temp src Pulse Resp SpO2 09/25/17 1150 - - - 72 - - 09/25/17 1109 140/73 36.7 ??C (98.1 ??F) Oral 75 20 98 % General Appearance: awake, alert, oriented, in no acute distress and well developed, well nourished Skin: skin color, texture, turgor are normal; there are no bruises, rashes or lesions. Head/face: NCAT Eyes: PERRL, EOMI and Sclera nonicteric Ears: External- normal and Hearing- normal to conversation Mouth/Throat: Mucosa moist, no lesions; pharynx without erythema, edema or exudate. Neck: neck- supple, no mass, non-tender, no bruits and no jvd Lungs: Normal expansion. Clear to auscultation. No rales, rhonchi, or wheezing., Percussion: dullness- none Heart: Heart sounds are normal. Regular rate and rhythm without murmur, gallop or rub. PMI: normal size and placement Abdomen: Soft, non-tender, normal bowel sounds; no bruits, organomegaly or masses. Extremities: no edema and no clubbing or cyanosis Peripheral Pulses: Equal and intact in both upper and lower ext Neurologic: Alert and oriented x 3, no focal motor or sensory deficits Psych exam:mood and affect appropriate Data Recent Labs Lab Units 09/25/17 0423 SODIUM mmol/L 139 POTASSIUM PLASMA mmol/L 4.2 CHLORIDE mmol/L 100 CO2 mmol/L 24 ANIONGAP mmol/L 15 GLUCOSE mg/dL 153 BUN SERUM mg/dL 14 CREATININE mg/dL 0.61 CALCIUM mg/dL 9.8 ALBUMIN g/dL 4.2 ALK PHOS Units/L 58 ALT Units/L 17 AST Units/L 19 BILIRUBIN TOTAL mg/dL 0.4 Recent Labs Lab Units 09/25/17 0423 SODIUM mmol/L 139 POTASSIUM PLASMA mmol/L 4.2 CHLORIDE mmol/L 100 CO2 mmol/L 24 BUN SERUM mg/dL 14 CREATININE mg/dL 0.61 [id number] mL/min/1.73 m2 >60 GLUCOSE mg/dL 153 CALCIUM mg/dL 9.8 ALBUMIN g/dL 4.2 Recent Labs Lab Units 09/25/17 0423 WHITE BLOOD CELLS K/cumm 12.0* HEMOGLOBIN g/dL 15.2 HEMATOCRIT % 44.4 PLATELETS K/cumm 255 Recent Labs Lab Units 09/25/17 0423 PROTIME (PT) sec 11.5 Recent Labs Lab Units 09/25/17 0423 INR 1.02 No lab exists for component: TROPONIN Assessment and Plan 1. PAF, prior PVI 12/2015. Still with occasional PAF and tachy but rare. None since 06/2017 until this AM. 2. SSS, unable to tolerate antiarrhythmic Rx without PPM, but she refuses. Will continue current Rx. Home tomorrow if remains in sinus rhythm. Consider repeat PVI if more frequent AF/RVR. Continue Eliquis. Thank you for allowing us to participate in the care of this patient. We will continue to follow. If you have any questions, please don't hesitate to call. Reynaldo Flannery DO, [facility] 09/25/2017 2:10 PM CC: [facility] [phone] documented in this encounter Miscellaneous Notes * Plan of Care - Capri Sunshine RN - 09/26/2017 10:49 AM CDT Goals: Clinical Goals for the Shift: VSS, safety, remain hemodynamically stable, go home Summary: VSS, no arrhythmias overnight, pt has no complaints. Pt is to be discharged home. Pt discharged with medication instructions, follow up appointments, discharge activity/diet, etc. Pt to go home with daughter. Pt stable. Alert and oriented. Ambulating * Plan of Care - Capri Sunshine RN - 09/25/2017 7:29 PM CDT Goals: Clinical Goals for the Shift: remain hemodynamically stable, safety Summary: VSS, free of falls, no chest Pain, NSR documented in this encounter Plan of Treatment Not on file documented as of this encounter Procedures Procedure Name Priority Date/Time Associated Diagnosis Comments EGFR Routine 09/26/2017 5:12 AM CDT DIFFERENTIAL AUTO Routine 09/26/2017 5:1 2 AM CDT CBC WITH AUTO DIFFERENTIAL Routine 09/26/2017 5:12 AM CDT MAGNESIUM Routine 09/26/2017 5:12 AM CDT BASIC METABOLIC PANEL Routine 09/26/2017 5:12 AM CDT documented in this encounter Results * eGFR (09/26/2017 5:12 AM CDT) [facility] eGFR 69 mL/min/1.7 3 m2 ANDREW DAWN Comment: Interpretive Data Reference Interval Normal ?>/= 90 mL/min/1.73m2 Mildly decreased* ? 60 - 89 mL/min/1.73m2 Mildly to moderately decreased ?45 - 59 mL/min/1.73m2 Moderately to severely decreased ??30 - 44 mL/min/1.73m2 Severely decreased ?15 - 29 mL/min/1.73m2 Kidney Failure ?< 15 ??mL/min/1.73m2 *Relative to young adult level If -Portuguese multiply value by 1.16. Estimated glomerular filtration [...] was last reviewed 2015. Blood specimen (specimen) 09/26/2017 5:12 AM CDT 09/26/2017 6:25 AM CDT Narrative ANDREW - 09/26/2017 6:44 AM CDT us Nancy Escobar [employer] LAB BLOOD ORDERABLES Final Res ult ANDREW [id number] Department [place] [address] * Differential, auto (09/26/2017 5:12 AM CDT) Neutrophil abs 4.1 1.7 - 6.5 K/cumm [facility] Imm gran abs 0.0 0.0 - 0.1 K/cumm [facility] Lymphocyte abs 2.9 0.8 - 3.3 K/cumm [facility] Monocyte abs 0.6 0.2 - 0.8 K/cumm [facility] Eosinophil abs 0.1 0.0 - 0.5 K/cumm [facility] Basophil abs 0.1 0.0 - 0.1 K/cumm [facility] Neutrophil pct 52.1 % [facility] Comment: Interpretive Data Percent cell count reference ranges are not reported, since discordance with absolute values may lead to misinterpretation of CBC data. Current Interpretive Data was last revised on 2017. Imm gran pct 0.5 % [facility] Comment: Interpretive Data Percent cell count reference ranges are not reported, since discordance with absolute values may lead to misinterpretation of CBC data. Current Interpretive Data was last revised on 2017. Lymphocyte pct 37.1 % [facility] Comment: Interpretive Data Percent cell count reference ranges are not reported, since discordance with absolute values may lead to misinterpretation of CBC data. Current Interpretive Data was last revised on 2017. Monocyte pct 7.9 % [facility] Comment: Interpretive Data Percent cell count reference ranges are not reported, since discordance with absolute values may lead to misinterpretation of CBC data. Current Interpretive Data was last revised on 2017. Eosinophil pct 1.5 % [facility] Comment: Interpretive Data Percent cell count reference ranges are not reported, since discordance with absolute values may lead to misinterpretation of CBC data. Current Interpretive Data was last revised on 2017. Basophil pct 0.9 % [facility] Comment: Interpretive Data Percent cell count reference ranges are not reported, since discordance with absolute values may lead to misinterpretation of CBC data. Current Interpretive Data was last revised on 2017. Blood specimen (specimen) 09/26/2017 5:12 AM CDT 09/26/2017 6:23 AM CDT Narrative ANDREW - 09/26/2017 6:28 AM CDT Nancy Escobar [employer] LAB BLOOD ORDERABLES Final Res ult Performing Organization Address [facility] Co de Phone Number ANDREW [address] [address] [place] [place] [address] * CBC with auto differential (09/26/2017 5:12 AM CDT) WBC 7.8 3.8 - 9.9 K/cumm [facility] RBC 4.22 3.90 - 5.20 M/cumm [facility] Hgb 13.1 11.9 - 15.5 g/dL [facility] Hct 39.9 35.6 - 45.5 % [facility] MCV 94.5 81.3 - 96.4 fL [facility] MCH 31.0 27.1 - 33.3 pg [facility] MCHC 32.8 32.3 - 35.7 g/dL [facility] RDW CV 12.8 11.1 - 14.9 % [facility] RDW SD 44.4 35.7 - 48.1 fL [facility] Plt 200 150 - 400 K/cumm [facility] MPV 10.9 9.1 - 12.3 fL [facility] NRBC abs 0.00 0.00 - 0.01 K/cumm [facility] Blood specimen (specimen) 09/26/2017 5:12 AM CDT 09/26/2017 6:23 AM CDT Narrative ANDREW - 09/26/2017 6:28 AM CDT Nancy Escobar [employer] LAB BLOOD ORDERABLES Final Res ult Performing Organization Address [facility] Co de Phone Number ANDREW DAWN [address] Department [place] [address] * Basic metabolic panel (09/26/2017 5:12 AM CDT) Sodium 137 135 - 145 mmol/L [facility] Potassium, pl 4.3 3.5 - 5.1 mmol/L [facility] Chloride 104 100 - 114 mmol/L [facility] CO2 28 22 - 32 mmol/L [facility] Anion gap 9 8 - 16 mmol/L [facility] BUN 14 8 - 24 mg/dL [facility] Creatinine 0.82 0.60 - 1.30 mg/dL [facility] Glucose 115 70 - 199 mg/dL [facility] [...] interpretive data was last revised 2017. Calcium 9.1 8.4 - 10.5 mg/dL [facility] Blood specimen (specimen) 09/26/2017 5:12 AM CDT 09/26/2017 6:23 AM CDT Narrative [facility] - 09/26/2017 6:44 AM CDT us Nancy Escobar NP LAB BLOOD ORDERABLES Final Res ult ANDREW DAWN [id number] Department [place] [address] * Magnesium (09/26/2017 5:12 AM CDT) Magnesium 1.9 1.8 - 2.6 mg/dL [facility] Blood specimen (specimen) 09/26/2017 5:12 AM CDT 09/26/2017 6:23 AM CDT Narrative ANDREW DAWN - 09/26/2017 6:44 AM CDT us Nancy Escobar NP LAB BLOOD ORDERABLES Final Res ult ANDREW DAWN [address] Department [place] [address] documented in this encounter Visit Diagnoses Diagnosis Atrial fibrillation with RVR (CMS/HCC) (HCC) Hypertension Unspecified essential hypertension Hyperlipidemia Other and unspecified hyperlipidemia Osteoarthritis Osteoarthrosis, unspecified whether generalized or localized, unspecified site Coronary artery disease involving [place] coronary artery of [place] heart without angina pectoris Paroxysmal atrial fibrillation (CMS/HCC) (HCC) Atrial fibrillation Chronic GERD Anxiety Anxiety state, unspecified Abdominal aortic aneurysm (AAA) without rupture (HCC) documented in this encounter Administered Medications Inactive Administered Medications - up to 3 most recent administrations Medication Order MAR Action Action Date Dose Rate Site acetaminophen (TYLENOL) tablet 650 mg 650 mg, oral, Every 4 hours PRN, 1st line for pain, fever, fever greater than 38.3 C, Starting on Fri09/25/17 at 1352, Indications: Fever, PainIndications:Fever,Pain al & mag hydroxide simethicone-lidocaine oral suspension mixture 40 mL, oral, Once as needed, reflux/gerd unrelieved by other meds, Starting on Fri09/25/17 at 1352, For 1 dose ALPRAZolam (XANAX) tablet 0.5 mg 0.5 mg, oral, 2 times daily PRN, anxiety, Starting on Fri09/25/17 at 1508 apixaban (ELIQUIS) tablet 5 mg 5 mg, oral, 2 times daily, First dose on Fri09/25/17 at 2100, May crush and suspend in 60 ml of water, D5W, apple juice or apple sauce. If on heparin infusion, discontinue heparin infusion upon first administration of apixaban., Indications: atrial fibrillationIndications:atrial fibrillation Given 09/26/2017 8:54 AM CDT 5 mg Given 09/25/2017 9:19 PM CDT 5 mg calcium acetate (PHOSLO) capsule 667 mg 667 mg, oral, 3 times daily with meals, First dose on Fri09/25/17 at 1800, Take with food Given 09/26/2017 8:54 AM CDT 6 67 mg Given 09/25/2017 6:08 PM CDT 667 mg cholecalciferol (VITAMIN D-3) tablet 2,000 Units 2,000 Units, oral, Daily, First dose on Fri09/25/17 at 1430 Given 09/26/2017 8:54 AM CDT 2,000 Units Given 09/25/2017 6:10 PM CDT 2,000 Units cyanocobalamin (Vitamin B-12) tablet 100 mcg 100 mcg, oral, Daily, First dose on Fri09/25/17 at 1430, Indications: Prevention of Vitamin B12 DeficiencyIndications:Prevention of Vitamin B12 Deficiency Given 09/26/2017 8:54 AM CDT 100 mcg Given 09/25/2017 6:09 PM CDT 100 mcg docusate sodium (COLACE) capsule 100 mg 100 mg, oral, 2 times daily PRN, constipation, Starting on Fri09/25/17 at 1354, Indications: constipationIndications:constipation fluticasone (FLONASE) 50 mcg/actuation nasal spray 2 spray 2 spray, each nostril, Daily, First dose on Fri09/25/17 at 1430 Given 09/26/2017 8:57 AM CDT 2 sprays Given 09/25/2017 6:10 PM CDT 2 sprays lactase (LACTAID) tablet 3,000 Units 3,000 Units, oral, 3 times daily with meals, First dose on Fri09/25/17 at 1800 Given 09/26/2017 8:54 AM C DT 3,000 Units Given 09/25/2017 6:09 PM CDT 3,000 Units methyl salicylate-menthol 15-10 % cream topical, 2 times daily PRN, muscle/joint pain, Starting on Fri09/25/17 at 2019, Apply to affected area: leg, Laterality: Bilateral ondansetron (ZOFRAN) injection 4 mg 4 mg, intravenous, Every 6 hours PRN, nausea, vomiting, Starting on Fri09/25/[address] (PROTONIX) extended release tablet 40 mg 40 mg, oral, Daily, First dose on Fri09/25/17 at 1430, Do not crush or chew, Indications: Treatment of Non-Bleeding Gastric DisorderIndications:Treatment of Non-Bleeding Gastric Disorder Given 09/25/2017 6:10 PM CDT 40 mg polyethylene glycol (MIRALAX) packet 17 g 17 g, oral, 2 times daily PRN, constipation, Starting on Payton 09/25/17 at 2020 sodium chloride 0.9% flush 0.5-20 mL 0.5-20 mL, intra-catheter, Every 8 hours scheduled, First dose on [place] 09/25/17 at 1400, Flush volume based on line type and size. , Indications: FlushingIndications:Flushing Given 09/25/2017 9:57 PM CDT 10 mL sodium chloride 0.9% flush 0.5-20 mL 0.5-20 mL, intra-catheter, As needed, line care, Starting on Payton 09/25/17 at 1214, Flush volume based on line type and size. Flush before and after each use. , Indications: FlushingIndications:Flushing sodium chloride 0.9% flush 0.5-20 mL 0.5-20 mL, intra-catheter, Every 8 hours scheduled, First dose on [place] 09/25/17 at 1400, Flush volume based on line type and size., Indications: FlushingIndications:Flushing Given 09/25/2017 9:57 PM CDT 10 mL Given 09/25/2017 1:06 PM CDT 10 mL sodium chloride 0.9% flush 0.5-20 mL 0.5-20 mL, intra-catheter, As needed, line care, Starting on Payton 09/25/17 at 1214, Flush volume based on line type and size. Flush before and after each use., Indications: FlushingIndications:Flushing documented in this encounter Historical Medications * This list may reflect changes made after this encounter. calcium acetate (PHOSLO) 667 mg capsule Take 667 mg by mouth 3 (three) times a day with meals. 07/29/2018 added in this encounter Active and Recently Administered Medications Times are shown in CDT. Scheduled Medication Order 09/24/2017 09/25/2017 09/26/2017 apixaban (ELIQUIS) tablet 5 mg 5 mg, oral, 2 times daily, First dose on Pay[place] 09/25/17 at 2100, May crush and suspend in 60 ml of water, D5W, apple juice or apple sauce. If on heparin infusion, discontinue heparin infusion upon first administration of apixaban., Indications: atrial fibrillation 2118 (Given - Provider: To Cross RN) 0854 (Given - Provider: Capri Sunshine RN) calcium acetate (PHOSLO) capsule 667 mg 667 mg, oral, 3 times daily with meals, First dose on Payton 09/25/17 at 1800, Take with food 180 (Given - Provider: Capri Sunshine RN) 0854 (Given - Provider: Capri Sunshine RN)1200 (Due) cholecalciferol (VITAMIN D-3) tablet 2,000 Units 2,000 Units, oral, Daily, First dose on Payton 09/25/17 at 1430 1810 (Given - Provider: Capri Sunshine RN - Comment: pt requested with meals) 0854 (Given - Provider: Capri Sunshine RN) cyanocobalamin (Vitamin B-12) tablet 100 mcg 100 mcg, oral, Daily, First dose on Payton 09/25/17 at 1430, Indications: Prevention of Vitamin B12 Deficiency 1808 (Given - Provider: Capri Sunshine RN - Comment: pt request with meals) 0854 (Given - Provider: Capri Sunshine RN) fluticasone (FLONASE) 50 mcg/actuation nasal spray 2 spray 2 spray, each nostril, Daily, First dose on Payton 09/25/17 at 1430 1810 (Given - Provider: Capri Sunshine RN) 0857 (Given - Provider: Capri Sunshine RN) lactase (LACTAID) tablet 3,000 Units 3,000 Units, oral, 3 times daily with meals, First dose on Payton 09/25/17 at 1800 1809 (Given - Provider: Capri Sunshine RN) 0854 (Given - Provider: Capri Sunshine RN)1200 (Due) pantoprazole DR (PROTONIX) extended release tablet 40 mg 40 mg, oral, Daily, First dose on Payton 09/25/17 at 1430, Do not crush or chew, Indications: Treatment of Non-Bleeding Gastric Disorder 1809 (Given - Provider: Capri Sunshine RN - Comment: pt request with meals) 0856 (Not Given - Provider: Capri Sunshine RN - Reason: Patient/family refused) sodium chloride 0.9% flush 0.5-20 mL 0.5-20 mL, intra-catheter, Every 8 hours scheduled, First dose on Payton 09/25/17 at 1400, Flush volume based on line type and size. , Indications: Flushing 1306 (Not Given - Provider: Capri Sunshine RN - Reason: Other - Comment: duplicate order)2156 (Given - Provider: To Cross RN) 0856 (Not Given - Provider: Capri Sunshine RN - Reason: Other - Comment: not given by prev nurse) sodium chloride 0.9% flush 0.5-20 mL(Linked Group 1) 0.5-20 mL, intra-catheter, Every 8 hours scheduled, First dose on Payton 09/25/17 at 1400, Flush volume based on line type and size., Indications: Flushing 1306 (Given - Provider: Capri Sunshine RN)7 (Given - Provider: To Cross RN) 0856 (Not Given - Provider: Capri Sunshine RN - Reason: Other - Comment: by prev nurse) PRN Medication Order 09/24/2017 09/25/2017 09/26/2017 acetaminophen (TYLENOL) tablet 650 mg 650 mg, oral, Every 4 hours PRN, 1st line for pain, fever, fever greater than 38.3 C, Starting on Payton 09/25/17 at 1352, Indications: Fever, Pain al & mag hydroxide simethicone-lidocaine oral suspension mixture 40 mL, oral, Once as needed, reflux/gerd unrelieved by other meds, Starting on Payton 09/25/17 at 1352, For 1 dose ALPRAZolam (XANAX) tablet 0.5 mg 0.5 mg, oral, 2 times daily PRN, anxiety, Starting on Payton 09/25/17 at 1508 docusate sodium (COLACE) capsule 100 mg 100 mg, oral, 2 times daily PRN, constipation, Starting on Payton 09/25/17 at 1354, Indications: constipation methyl salicylate-menthol 15-10 % cream topical, 2 times daily PRN, muscle/joint pain, Starting on Payton 09/25/17 at 2019, Apply to affected area: leg, Laterality: Bilateral ondansetron (ZOFRAN) injection 4 mg 4 mg, intravenous, Every 6 hours PRN, nausea, vomiting, Starting on Payton 09/25/17 at 1352 polyethylene glycol (MIRALAX) packet 17 g 17 g, oral, 2 times daily PRN, constipation, Starting on Fri09/25/17 at 2020 sodium chloride 0.9% flush 0.5-20 mL 0.5-20 mL, intra-catheter, As needed, line care, Starting on Payton 09/25/17 at 1214, Flush volume based on line type and size. Flush before and after each use. , Indications: Flushing sodium chloride 0.9% flush 0.5-20 mL(Linked Group 1) 0.5-20 mL, intra-catheter, As needed, line care, Starting on Payton 09/25/17 at 1214, Flush volume based on line type and size. Flush before and after each use., Indications: Flushing Linked Groups Order Group 1: Saline lock IV (CANCELED) Routine, Once (Routine), On Payton 09/25/17 at 1215, For 1 occurrence And sodium chloride 0.9% flush 0.5-20 mLJump to med 0.5-20 mL, intra-catheter, Every 8 hours scheduled, First dose on Payton 09/25/17 at 1400, Flush volume based on line type and size., Indications: Flushing And sodium chloride 0.9% flush 0.5-20 mLJump to med 0.5-20 mL, intra-catheter, As needed, line care, Starting on Payton 09/25/17 at 1214, Flush volume based on line type and size. Flush before and after each use., Indications: Flushing documented in this encounter Orders Medications Ordered That Flaco ht Not Have Been Administered Count Last Ordered Date First Ordered Date acetaminophen (TYLENOL) tablet 650 mg 1 07/2017 al & mag hydroxide simethico ne-lidocaine oral suspension mixture 1 09/25/2017 ALPRAZolam (XANAX) tablet 0.5 mg 1 09/26/19 docusate sodium (COLACE) capsule 100 mg 1 0 09/25/2017 enoxaparin (LOVENOX) syringe 40 mg 1 2017 methyl salicylate-menthol 15-10 % cream 1 0 09/25/2017 ondansetron (ZOFRAN) injection 4 mg 1 09/25 polyethylene glycol (MIRALAX) packet 17 g 1 09/25/2017 sodium chloride 0.9% flush 0.5-20 mL 2 07/2017 Diet Count Last Ordered Date First Orde red Date ADULT DISCHARGE DIET 1 09/26/2017 Nursing Count Last Ordered Date First Orde red Date DISCHARGE ACTIVITY 1 09/26/2017 DISCHARGE CALL PROVIDER 8 09/26/2017 DISCHARGE INSTRUCTIONS 1 09/26/2017 FOLLOW UP PRIMARY PHYSICIAN 1 09/26/2017 FOLLOW UP WITH PROVIDER 1 09/26/2017 Consult Count Last Ordered Date First Orde red Date IP CONSULT TO CARDIOLOGY 1 09/25/2017 Admission Count Last Ordered Date First Orde red Date ASSIGN PATIENT STATUS 1 09/25/2017 CORE MEASURES Count Last Ordered Date First Ord ered Date REASON FOR NO VTE PROPHYLAXIS AT ADMISSION 1 09/26/2017 documented in this encounter Care Teams Ticket Sales Agent Relationship Specialty Start Date End Date Ronald Castrejon MD PCP - General 06/21/16 07/17/22 Reynaldo Flannery DO Consulting Physician Cardiology 09/26/17 documented as of this encounter
--- OUTSIDE RECORDS SUMMARY | 2024-04-11 06:39 | XMS_ITS | Encounter Summary ---
Author Organization [facility] Medical Group Address [address] [place] [address] Care Team Providers Care Family Service Aide Name Role Phone Ronald Castrejon MD Primary Care Provider [phone] Reynaldo Flannery DO Unavailable [phone] Encounter Details Date Type Department Care Team (Late st Contact Info) Description 11/19/2017 Orders Only [facility] [address] [place] [address] Scanning, Provider Social History Tobacco Use Types Packs/Day Years Used Date Smoking Tobacco: Former Smokeless Tobacco: Never Alcohol Use Standard Drinks/Week Comments No 0 (1 standard drink = 0.6 oz pur e alcohol) Comments Unknown Sex and Gender Information Value Date Recorded Sex Assigned at Not on file Legal Sex Female 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 Gender Identity Female 10/09/2022 9:08 AM CDT Sexual Orientation Choose not to disclose 2022 9:08 AM CDT documented as of this encounter Plan of Treatment Not on file documented as of this encounter Procedures Procedure Name Priority Date/Time Associated Diagnosis Comments SCAN - RADIOLOGY/IMAGING 11/19/2017 9:59 AM CDT documented in this encounter Results * SCAN - RADIOLOGY/IMAGING (11/19/2017 9:59 AM CDT) Anatomical Region Laterality Modality Other us Provider Scanning Final Result documented in this encounter Visit Diagnoses Not on filedocumented in this encounter Care Teams Family Service Aide Relationship Specialty Start Date End Date Ronald Castrejon MD PCP - General 06/21/16 07/17/22 Reynlado Flannery DO Consulting Physician Cardiology 09/26/17 documented as of this encounter
--- OUTSIDE RECORDS SUMMARY | 2024-04-11 06:39 | XMS_ITS | Encounter Summary ---
Author Organization [facility] Address [address] [place] [address] Care Team Providers Care Digital Computer Operator Name Role Phone Ronald Castrejon MD Primary Care Provider [phone] Reynaldo Flannery DO Unavailable [phone] Guanakito Holland MD Unavailable Jaclyn Eid RN Unavailable [phone] Encounter Details Date Type Department Care Team (Late st Contact Info) Description 09/23/2018 Telephone [facility] [address] [facility] [address] [place] [address] Ronald Castrejon MD [address] [place] [address] Social History Tobacco Use Types Packs/Day Years Used Date Smoking Tobacco: Former Cigarettes Q uit: 1975 Smokeless Tobacco: Never Alcohol Use Standard Drinks/Week Comments No 0 (1 standard drink = 0.6 oz pur e alcohol) Comments No Sex and Gender Information Value Date Recorded Sex Assigned at Not on file Legal Sex Female 11:18 AM RAGMAN Gender Identity Female 10/09/2022 9:08 AM CDT Sexual Orientation Choose not to disclose 2022 9:08 AM CDT documented as of this encounter Miscellaneous Notes * Telephone Encounter - Alyssia Shah MA - 09/23/2018 1:29 PM CDT Faxed to [facility] * Telephone Encounter - Louise Hahn - 09/23/2018 11:23 AM CDT Pt aware * Telephone Encounter - Ronald Castrejon MD - 09/23/2018 11:14 AM CDT We will do * Telephone Encounter - Louise Hahn - 09/23/2018 10:27 AM CDT JR please advise * Telephone Encounter - Judy Salmeron - 09/23/2018 10:09 AM CDT Pt states she spoke to the [facility] and they suggested the pt contact our office about reducing her alprazolam to .25mg so the pt isnt sleeping all day. Please [id number] Festus false pass castillo documented in this encounter Plan of Treatment Not on file documented as of this encounter Visit Diagnoses Not on filedocumented in this encounter Care Teams Digital Computer Operator Relationship Specialty Start Date End Date Ronald Castrejon MD PCP - General 06/21/16 07/17/22 Reynaldo Flannery DO Consulting Physician Cardiology 09/26/17 Guanakito Holland MD Consulting Physician Cardiovascular Disease 07/29/18 Jaclyn Eid, RN [address] [place] [address] Stock Driver 07/31/18 11/29/18 documented as of this encounter
--- OUTSIDE RECORDS SUMMARY | 2024-04-11 06:39 | XMS_ITS | Encounter Summary ---
Author Organization [facility] Address [address] [place] [address] Care Team Providers Care Loan Auditor Name Role Phone Ronald Castrejon MD Primary Care Provider [phone] Reynaldo Flannery DO Unavailable Guanakito Holland MD Unavailable Jaclyn Eid RN Unavailable [phone] Encounter Details Date Type Department Care Team (Late st Contact Info) Description 09/14/2018 9:45 AM CDT - 09/14/2018 11:15 AM CDT Surgery [facility] Cardiac Catheterization Lab [address] [place] [address] Reynaldo Flannery, DO [address] [facility] [address] [place], [place] [id number] IMPLANT ATRIAL PPM SYTEM WITH ATRIAL ELECTRODE (GEN AND LEAD, NEW OR REPLACE) 35465 Surgery Details Date/Time Status Location OR Service Patient Class Case Class Case Type Trauma Case? 09/14/2018 9:45 AM Posted CARDIAC ADVERTISER HYBRID 02 Cardiovascular Outpatient Elective Panel 1 Procedure LRB Anes Op Region Wound Class Comments IMPLANT ATRIAL PPM SYTEM WITH ATRIAL ELECTRODE (GEN AND LEAD, NEW OR REPLACE) 28781 N/A Monitor Anesthesia Care Surgeon Surgeon Role Service Panel Reynaldo Flannery DO Primary Cardiovascular 1 documented in this encounter Social History Tobacco Use Types Packs/Day Years Used Date Smoking Tobacco: Former Cigarettes Q uit: 1975 Smokeless Tobacco: Never Alcohol Use Standard Drinks/Week Comments No 0 (1 standard drink = 0.6 oz pur e alcohol) Comments No Sex and Gender Information Value Date Recorded Sex Assigned at Not on file Legal Sex Female 11:18 AM CHECK WRITER Gender Identity Female 10/09/2022 9:08 AM CDT Sexual Orientation Choose not to disclose 2022 9:08 AM CDT documented as of this encounter Last Filed Vital Signs Vital Sign Reading Time Taken Comments Blood Pressure 179/89 09/14/2018 8:19 AM CDT Pulse 65 09/14/2018 8:19 AM CDT Temperature 36.8 ??C (98.2 ??F) 09/14/2018 8:19 AM CD T Respiratory Rate 18 09/14/2018 8:19 AM CDT Oxygen Saturation 97% 09/14/2018 8:19 AM CDT Inhaled Oxygen Concentration - - Weight 75.3 kg (166 lb) 09/14/2018 8:19 AM CDT Height 154.9 cm (5' 1 ) 09/14/2018 8:19 AM CDT Body Mass Index 31.37 09/14/2018 8:19 AM CDT documented in this encounter Discharge Summaries * Macarena Vaughan HAND BRUSH FILLER - 09/15/2018 8:33 AM CDT Inpatient Discharge Summary BRIEF OVERVIEW Admitting Provider: Reynaldo Flannery DO Discharge Provider: Reynaldo Flannery DO Primary Care Physician at Discharge: Ronald Castrejon MD [phone] Admission Date: 09/14/2018 Discharge Date: 09/15/2018 Admission Location: [facility] Primary Discharge Diagnosis: Lead revision Secondary Discharge [...] ELECTRODE (GEN AND LEAD, NEW OR REPLACE) 58162 Discharge Details Physical Exam at Discharge: Discharge [...] in this encounter Progress Notes * Beth Bustillo, RN - 09/15/2018 8:32 AM CDT 09/15/18 0831 Referral Data Referral Source Manager Social Work Referral Reason Discharge Planning Patient Information Primary [...] Patient choice (Home Health/Hospice) list given to patient/community health program representative? No Custodial Facility list given to patient/community health program representative? No Initial Assessment: Admission Source: SDS Impression: Pacemaker lead displacement Plan Includes: Revision of lead Primary Source of Transportation: Patient drives self to all appointments Health Insurance Coverage: Medicare/Aetna Prescription Coverage: Medicare/Aetna Pharmacy: [place], [place] Primary Care Provider: Dr. Ronald Castrejon Additional information: Met with patient and her daughter at bedside for initial discharge planning. She is alert, oriented and cooperative. She lives alone in a house. She still drives to all of herappointments. Has no durable medical equipment. Pharmacy is [place], [place]. Goal upon discharge is to return home. No needs identified at this time. Reviewed and verified face sheet with patient Case management will follow for discharge planning and send referrals as needed. documented in this encounter H&P Notes * Reynaldo Flannery DO - 09/14/2018 10:18 AM CDT I have reviewed the H&P, examined the patient, and endorse the findings as written. Plan of Care : Based on the above findings, I consider Abena Giron to be an acceptable risk for: Procedure(s): IMPLANT ATRIAL PPM SYTEM WITH ATRIAL ELECTRODE (GEN AND LEAD, NEW OR REPLACE) 73929 - LEAD REVISIONONLY Source Note - Reynaldo [...] ELECTRODE (GEN AND LEAD, NEW OR REPLACE) 51049 Patient location: patient room Last vitals: Vitals: [...] ELECTRODE (GEN AND LEAD, NEW OR REPLACE) 83312 - LEAD REVISIONONLY And removal of old atrial lead. Op Note Attending Cafeteria Associate: Reynaldo Flannery DO Primary: Reynaldo Flannery DO Cafeteria Associate Assistants: none CV Documenter: Jennie Niño RN CV Nurse: Renita Leiva RN CV Scrub: Yessy Kim CV Tape Making Machine Operator: Brielle Parker RN Date of Procedure: 09/14/2018 Specimens: No specimen collected in procedure Preoperative Diagnosis: atrial lead malfunction, SSS, PAF, tachybrady Postoperative Diagnosis: same Name of Procedure: Procedure(s): IMPLANT ATRIAL PPM SYTEM WITH ATRIAL ELECTRODE (GEN AND LEAD, NEW OR REPLACE) 86967 - LEAD REVISIONONLY with removal of old [...] Implant Name Type Inv. Item Serial No. Forming Machine Adjuster Lot No. Technical data No. Used [employer] [id number] SOLIA S 45CM BIPOLAR ACTIVE FIXATION LEAD PACING STEROID ELUTING - [id number] Lead [employer] 859255 Solia S 45cm Bipolar Active Fixation Lead Pacing Steroid Eluting [id number] [employer] [id number] p wave 1.0mV Threshold 1.1 V Impedance 510 ohms 1 MEDTRONIC CARDIAC RHYTHM MGMT [id number] TYRX 2.7X2.5IN MEDIUM ENVELOPE ABSORBABLE POLYARYLATE MINOCYCLINE - [id number] [employer]ON[employer] CARDIAC RHYTHM MGMT [id number] TYRX 2.7X2.5IN MEDIUM ENVELOPE ABSORBABLE POLYARYLATE MINOCYCLINE [employer] [id number] N/A 1 Complications: None Condition on Discharge from the operating room was stable Reynaldo Cabrera Hayes, DO Date: 09/14/2018 Time: 11:46 AM * Pre-Procedure Instructions - Lucy Christina RN - 09/10/2018 3:27 PM CDT We are pleased that you and your doctor have chosen [facility] for your surgery. We hope that the [...] your doctor. ?? Use no make-up, nail slovak, lotions, oils or powders on your skin. [...] CDT No active disease. Electronically signed by: Sisi Chanel 09/15/2018 8:15 AM CDT RESULT: HISTORY: The [...] PM CDT) 09/14/2018 2:11 PM CDT Narrative [facility] - 09/14/2018 5:03 PM CDT Vent Rate: 65 bpm RR Interval: 919 msec NM Interval: 203 msec QRS Duration: 92 msec QT Interval: 427 msec QTC Interval: 438 msec P-R-T [place]: 103 - 29 - 24 degrees ELECTRONIC ATRIAL PACEMAKER ABNORMAL RHYTHM ECG Compared to prior EKG atrial pacing has replaced atrial fibrillation Heart rate decreased Lateral ST depressions are no longer present Electronically Signed By: Jose Scherer MD Reynaldo Flannery DO ECG ORDERABLES Final Re sult [facility] * X-ray chest 1 view [...] finding. Electronically signed by: Baljit Fernández M.D. us Reynaldo Flannery DO IMG XR PROCEDURES Final Result * IMPLANT ATRIAL PPM SYTEM WITH ATRIAL ELECTRODE (GEN AND LEAD, NEW OR REPLACE) (09/14/2018 11:36 AM CDT) Anatomical Region Laterality Modality X-Ray Angiograph y Narrative 09/14/2018 11:54 AM CDT IMPLANT ATRIAL PPM SYTEM WITH ATRIAL ELECTRODE (GEN AND LEAD, NEW OR REPLACE) 74687 - LEAD REVISION ONLY ??And removal of old atrial lead. ?Op Note ?? Attending Cafeteria Associate: Reynaldo Flannery, DO Primary: Reynaldo Flannery, DO ?? Cafeteria Associate Assistants: none ?? CV Documenter: Jennie Niño RN CV Nurse: Renita Leiva RN CV Scrub: Yessy Kim CV Tape Making Machine Operator: Brielle Parker RN ?? Date of Procedure: 09/14/2018 ?? Specimens: No specimen collected in procedure ?? Preoperative Diagnosis: atrial lead malfunction, SSS, PAF, tachybrady ?? Postoperative Diagnosis: same ?? Name of Procedure: Procedure(s): IMPLANT ATRIAL PPM SYTEM WITH ATRIAL ELECTRODE (GEN AND LEAD, NEW OR REPLACE) 39189 - LEAD REVISION ONLY with removal of [...] Implant Name Type Inv. Item Serial No. Forming Machine Adjuster Lot No. Technical data No. Used [employer] 199593 SOLIA S 45CM BIPOLAR ACTIVE FIXATION LEAD PACING STEROID ELUTING - [id number] - [id number] Lead [employer] 172806 Solia S 45cm Bipolar Active Fixation Lead Pacing Steroid Eluting [id number] [employer] 275318 p wave 1.0mV Threshold 1.1 V Impedance 510 ohms 1 MEDTRONIC CARDIAC RHYTHM MGMT [id number] TYRX 2.7X2.5IN MEDIUM ENVELOPE ABSORBABLE POLYARYLATE MINOCYCLINE - [id number] ?? MEDTRONIC CARDIAC RHYTHM MGMT [id number] TYRX 2.7X2.5IN MEDIUM ENVELOPE ABSORBABLE POLYARYLATE MINOCYCLINE ?? [employer] [id number] N/A 1 ? Complications: None ?? Condition [...] Given 09/15/2018 8:58 AM CDT 2,000 mg bacitracin 50,000 Units in sodium chloride 0.9% 500 mL irrigation solution As needed, Starting on Fri09/14/18 at 1124, Intra-Procedure (CV) Given 09/14/2018 11:24 AM CDT Surgical Site fentaNYL (SUBLIMAZE) 50 mcg/mL preservative free injection - ADS Override Pull Starting on Fri09/14/18 at 1219, For 1 dose, Created by cabinet override fentaNYL (SUBLIMAZE) preservative free injection 25 mcg 25 mcg, intravenous, Every 10 min PRN, 1st line for pain, Starting on Fri09/14/18 at 1226, For 4 doses, Phase I Given 09/14/2018 1:30 PM CDT 25 mcg Given 09/14/2018 1:08 PM CDT 25 mcg Given 09/14/2018 12:52 PM CDT 25 mcg gentamicin (GARAMYCIN) 80 mg in sodium chloride 0.9% 500 mL irrigation solution As needed, Starting on Fri09/14/18 at 1125, Intra-Procedure (CV) Given 09/14/2018 11:25 AM CDT Surgical Site iodixanol (VISIPAQUE) 320 mg iodine/mL injection As needed, Starting on Fri09/14/18 at 1145, Intra-Procedure (CV) Given 09/14/2018 11:45 AM CDT 20 mL lidocaine (XYLOCAINE) 10 mg/mL (1 %) injection As needed, Starting on Fri09/14/18 at 1100, Intra-Procedure (CV), Indications: Administration of Local AnesthesiaIndications:Administrati on of Local Anesthesia Given 09/14/2018 11:00 AM CDT 20 mL Left Chest loratadine (CLARITIN) tablet 10 mg 10 mg, [...] PM CDT 25 mg sodium chloride 0.9% bolus Continuous PRN, Starting on Fri09/14/18 at 1059, Intra-Procedure (CV) New Bag 09/14/2018 10:59 AM CDT 1,000 mL sodium chloride 0.9% flush 0.5-20 mL [...] 1,000 mg 1,000 mg, oral, Once, On 09/14/18 at 1645, For 1 dose, Pre-Op, Indications: [...] chew, dissolve, open or otherwise manipulate tablet/capsule. 1736 (Not Given - Provider: Mellissa Najera RN [...] Surgical 0940 (New Bag - Provider: Renita Leiva RN)1100 (Stopped - Provider: Mellissa Najera RN) vancomycin [...] Fever, Pain 1426 (Given - Provider: Sherine Larose, BRAYAN)2329 (Given - Provider: Karen Aldrich, BRAYAN) ALPRAZolam (XANAX) tablet 0.5 mg 0.5 mg, [...] (XANAX) tablet 0.5 mg 1 09/15/19 19 fluticasone propionate (FLON ASE) 50 mcg/actuation nasal spray 2 spray 1 09/14/2018 Lactated Ringer's (LR) infusion 1 9 naloxone (NARCAN) 0.4 mg/mL injection 0.04-0.4 mg 1 09/14/2018 ondansetron (ZOFRAN) injection 4 mg 1 09/14 sodium chloride 0.9% flush 0.5-20 mL 1 08/23 vancomycin 1000 mg/200 mL in dextrose 5% (premix) 1,000 mg 1 09/14/2018 General Supply Count Last Ordered Date First Or dered Date FAUZIARIS 8015 BRAIN 1 09/14/2018 ALARIS IV PUMP [...] 09/14/2018 documented in this encounter Care Teams Loan Auditor Relationship Specialty Start Date End Date Ronald Castrejon MD PCP - General 06/21/16 07/17/22 Reynaldo Flannery DO Consulting Physician Cardiology 09/26/17 Guanakito Hollnad MD Consulting Physician Cardiovascular Disease 07/29/18 Jaclyn Eid, RN [address] [place] [id number] Grave Cleaner 07/31/18 11/29/18 documented as of this encounter
--- OUTSIDE RECORDS SUMMARY | 2024-04-11 06:39 | XMS_ITS | Encounter Summary ---
Author Organization [facility] Healthcare Address [address] [place] [address] Care Team Providers Care Owner Professional Engineer Name Role Phone Ronald Castrejon MD Primary Care Provider [phone] Reynaldo Flannery DO Unavailable [phone] Encounter Details Date Type Department Care Team (Late st Contact Info) Description 11/18/2017 9:04 AM CDT - 11/18/2017 2:34 PM CDT Hospital Encounter [facility] [address] [place] [address] [place] [address] [place] [address] Discharge Disposition: Discharge to home or self care Social History Tobacco Use Types Packs/Day Years Used Date Smoking Tobacco: Former Smokeless Tobacco: Never Alcohol Use Standard Drinks/Week Comments No 0 (1 standard drink = 0.6 oz pur e alcohol) Comments Unknown Sex and Gender Information Value Date Recorded Sex Assigned at Not on file Legal Sex Female 11:18 AM BUTTER LIQUEFIER Gender Identity Female 10/09/2022 9:08 AM CDT Sexual Orientation Choose not to disclose 2022 9:08 AM CDT documented as of this encounter Last Filed Vital Signs Vital Sign Reading Time Taken Comments Blood Pressure 140/77 11/18/2017 2:20 PM CDT Pulse 56 11/18/2017 2:20 PM CDT Temperature 36.2 ??C (97.1 ??F) 11/18/2017 10:34 AM C DT Respiratory Rate 15 11/18/2017 2:20 PM CDT Oxygen Saturation 98% 11/18/2017 2:20 PM CDT Inhaled Oxygen Concentration - - [...] 11/18/2017 12:17 PM Admit Type: Outpatient Room: [facility] Date of : 1940 Instrument Name: [id number] Gender: Female Note Status: Finalized Procedure: ERCP [...] 11/18/2017 12:17 PM Admit Type: Outpatient Room: [facility] Date of : 1940 Instrument Name: [id number] Gender: Female Note Status: Finalized Procedure: ERCP [...] 11/18/2017 documented in this encounter Care Teams Owner Professional Engineer Relationship Specialty Start Date End Date Ronald Castrejon MD PCP - General 06/21/16 07/17/22 Reynaldo Flannery DO Consulting Physician Cardiology 09/26/17 documented as of this encounter
--- OUTSIDE RECORDS SUMMARY | 2024-04-11 06:39 | XMS_ITS | Encounter Summary ---
Author Organization [facility] Healthcare Address [address] [place] [address] Care Team Providers Care Medium Cycle Salesperson Name Role Phone Ronald Castrejon MD Primary Care Provider [phone] Reynaldo Flannery DO Unavailable [phone] Guanakito [place] MD Unavailable [phone] Reason for Visit * Reason Comments Sore Throat Earache Encounter Details Date Type Department Care Team (Late st Contact Info) Description 07/29/2018 1:00 PM CDT - 07/29/2018 3:00 PM CDT Surgery [facility] Cardiac Catheterization [address] [place] [address] Guanakito [place] MD [address] [address] IMPLANT DUAL CHAMBER PPM SYSTEM W/ DUAL ELECTRODES (GEN AND LEADS, NEW OR REPLACE) [id number] Surgery Details Date/Time Status Location OR Service Patient Class Case Class Case Type Trauma Case? 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 CCL 01 Cardiovascular Inpatient Elective Panel 1 Procedure LRB Anes Op Region Wound Class Comments IMPLANT DUAL CHAMBER PPM SYSTEM W/ DUAL ELECTRODES (GEN AND LEADS, NEW OR REPLACE) [address] N/A Conscious Sedation Dual chamber pacemaker implant- Biotronik Surgeon Surgeon Role Service Panel Guanakito [place] MD Primary Cardiovascular 1 documented in this encounter Social History Tobacco Use Types Packs/Day Years Used Date Smoking Tobacco: Former Smokeless Tobacco: Never Alcohol Use Standard Drinks/Week Comments No 0 (1 standard drink = 0.6 oz pur e alcohol) Comments Unknown Sex and Gender Information Value Date Recorded Sex Assigned at Not on file Legal Sex Female 11:18 AM MEDICAL IMAGING TECH Gender Identity Female 10/09/2022 9:08 AM CDT Sexual Orientation Choose not to disclose 2022 9:08 AM CDT documented as of this encounter Last Filed Vital Signs Vital Sign Reading Time Taken Comments Blood Pressure 140/82 07/29/2018 2:55 PM CDT Pulse 99 07/29/2018 2:55 PM CDT Temperature 36.3 ??C (97.3 ??F) 07/29/2018 11:57 AM C DT Respiratory Rate 16 07/29/2018 2:55 PM CDT Oxygen Saturation 99% 07/29/2018 2:55 PM CDT Inhaled Oxygen Concentration - - Weight 75.4 kg (166 lb 3.6 oz) 07/29/2018 2:55 A M CDT Height 154.9 cm (5' 1 ) 07/29/2018 2:28 AM CDT Body Mass Index 31.41 07/29/2018 2:28 AM CDT documented in this encounter Discharge Summaries * Jarrett Oquendo MD - 07/30/2018 10:32 AM CDT Inpatient Discharge Summary BRIEF OVERVIEW Admitting Provider: Dinah Anguiano MD Discharge Provider: Jarrett Oquendo MD Primary Care Physician at Discharge: Ronald Castrejon MD [phone] Admission Date: 07/28/2018 Discharge Date: 07/30/2018 Primary Discharge Diagnosis: Atrial fibrillation with RVR ([facility]/HCC) Secondary Discharge Diagnosis: Hyperlipidemia Coronary artery disease involving [place] coronary artery of [place] heart without angina pectoris Paroxysmal atrial fibrillation ([facility]/HCC) Chronic GERD Anxiety Diarrhea of infectious origin NSTEMI (non-ST elevated myocardial infarction) ([facility]) Sore throat DETAILS OF HOSPITAL STAY Presenting Problem/History of Present Illness: Atrial fibrillation with RVR ([facility]) Ms. Giron is a 78 y/o woman [...] ELECTRODES (GEN AND LEADS, NEW OR REPLACE) [address] Other Procedures: Pertinent Test Results: EKG 07/29/18 Vent Rate: 136 bpm RR Interval: 440 msec ND Interval: 0 msec QRS Duration: 88 msec QT Interval: 260 msec QTC Interval: 340 msec P-R-T Montgomery: 0 - 12 - 0 degrees ?? ATRIAL FIBRILLATION WITH RAPID VENTRICULAR RESPONSE MARKED ST DEPRESSION, CONSIDER ??SUBENDOCARDIAL INJURY [0.2+ mV ST DEPRESSION] ABNORMAL ECG Compared to 02/09/2016 atrial fibrillation is new, ST depression is new ?? Electronically Signed By: Dr Jarrett Mathis EKG 07/29/18 Vent Rate: 101 bpm RR Interval: 592 msec ND Interval: 0 msec QRS Duration: 95 msec QT Interval: 318 msec QTC Interval: 376 msec P-R-T Montgomery: 0 - 29 - 17 degrees ?? ATRIAL FIBRILLATION WITH RAPID VENTRICULAR RESPONSE NONSPECIFIC ST \T\ T-WAVE ABNORMALITY ABNORMAL RHYTHM ECG Compared to 07/29/2018 no change ?? Electronically Signed By: Dr Jarrett Mathis EKG 07/30/18 Vent Rate: 101 bpm RR Interval: 593 msec ND Interval: 0 msec QRS Duration: 97 msec QT Interval: 376 msec QTC Interval: 434 msec P-R-T Montgomery: 0 - 32 - -2 degrees ?? [...] are discharged, a permanent card from the supervisor painting will arrive in about 4-6 weeks. This [...] you have a pacemaker (including dentist, surgeons, eye-lead caregiver, and emergency personnel). 8. Call the office [...] MD AIM [facility] Decent Guanakito [place] MD [address] [place] [address] [address] [facility] A [place] [address] Guanakito [place] (Cardiology) Friday08/05/18 at 12:00 pm in the [place] office [address] [address] [place] [address]; . Time Spent on Discharge: 35 minutes Voice recognition software [employer] was used dictate and transcribe this document. Nursing Home Assistant Administrator variances may occur. Despite proofreading, typographical errors [...] in your arm or leg. Contact your value advisor or healthcare provider if: ?? Your heart [...] of an emergency. Follow up with your value advisor as directed: You will need regular blood [...] best exercise plan for you. ?? 2017 [email or web address] Information is for End User's use only and may not be sold, redistributed or otherwise used for commercial purposes. All illustrations and images included in CareNotes?? are the copyrighted property of [employer], [employer]. or [employer]. The above information is an educational aide only. It is not intended as medical advice for individual conditions or treatments. Talk to your doctor, nurse or pharmacist before following any medical regimen to see if it is safe and effective for you. * Attachments The following attachments cannot be sent through Care Everywhere. * Diltiazem (By mouth) (Nigerian) * Pantoprazole (By mouth) (Nigerian) documented in this encounter Medications at Time [...] total) by mouth daily 30 tablet 11 07/30/2018 9 documented as of this encounter Ordered Prescriptions Prescription Sig Dispense Quantity Refills Last Filled Start Date End Date dilTIAZem XR (CARDIZEM CD,DILACOR XR) 240 mg 24 hr capsule Take 1 capsule (240 mg total) by mouth daily 30 capsule 11 07/31/[address] (PROTONIX) 40 mg EC tablet Take 1 tablet (40 mg total) by mouth daily 30 tablet 11 07/30/2018 9 documented in this encounter Discharge Disposition Disposition Code Departure Means Destination Discharge to home or self care documented in this encounter Progress Notes * Mercedes Zhang - 07/30/2018 9:41 AM CDT [facility] Nutrition Assessment NAME:Abena Giron :1940 AGE:78 y.o. [...] oz) Height: 154.9 cm (5' 1 ) Corrie Brock Equation (Overweight or Obese Patients): 1171 Equation Chosen to Use by RD: Carri Redd Activity Factor: 1.2 Stress Factor: 1.2 Total [...] Weight Used for Estimated Kcals: Current ?? [facility] Total Energy Needs: 1686.24 kcal using Stress Factor: 1.2 ?? [facility] Total Energy Needs + Fever Factor: 1686.24 [...] Day I/O Summary 07/28 1899 - 07/30 0659 In: 1089 [P.O.:200; I.V.:499] Out: 200 [Urine:200] Temp: 36.1 ??C (97 ??F) [place] body weight: 47.8 kg (105 lb 6.1 [...] by: PO under 50%, Physical finding Interventions: [place] diet preferences within the limits of nutrition care order Monitoring and Evaluation: I/O, Labs, Plan of care, PO intake, Stool patterns ?? Goals: Advance to oral intake as medically able Nutritional Risk: medium ROSS FeldmanN * Jarrett Oquendo MD - 07/29/2018 6:05 [...] worsening diarrhea DVT PPx Voice recognition software [employer] was used dictate and transcribe this document. Nursing Home Assistant Administrator variances may occur. Despite proofreading, typographical errors may occur. Jarrett Oquendo Jr., MD 07/29/2018 6:05 PM * Yahaira Johnson [facility] - 07/29/2018 4:12 AM CDT Pepcid dose and frequency changed due to CrCl less than 50 for iv dosing CrCl = 43.7 ------equals a dose of pepcid 20mg iv daily * Yahaira Johnson [facility] - 07/29/2018 4:12 AM CDT Pepcid dose and frequency changed due to CrCl less than 50 for iv dosing CrCl = 43.7 ------equals a dose of pepcid 20mg iv daily documented in this encounter H&P Notes * Dinah Anguiano MD - 07/29/2018 4:02 AM CDT History and Physical Date of Service: 07/29/2018 Primary Care Physician: Ronald Castrejon MD [phone] SUBJECTIVE: Patient is a 78 y.o. female with a PMHx significant for paroxysmal AFib history of prior ablation, so recorder in place, abdominal aortic aneurysm, anxiety, GERD, coronary artery disease status post MA with stents x2, hyperlipidemia, osteoarthritis. Presents to the ED with a chief complaint of sorethroat. HPI: Patient presented to the ED with complains of flu-like symptoms, sore throat associated with diarrhea and nausea worsening of the GERD symptoms. She is currently on Prevacid and digestive enzymes. Patient states that at family member and multiple people in the [facility] had some GI virus causing similar symptoms. [...] ago. The also had a follow-up with property insurance agent about a months ago. Reportedly was told [...] Temporal Heart Rate Source -- Patient Position 07/29/18 0228 Lying BP Location 07/29/18 0228 Left arm FiO2 (%) -- Most Recent [...] Active Problems: Hyperlipidemia Coronary artery disease involving [place] coronary artery of [place] heart without angina pectoris Paroxysmal atrial fibrillation [...] file Gets together: Not on file Attends buddhist service: Not on file Active member of [...] ProviderMD Labs: Recent Labs Lab Units 07/29/18 0626 07/29/187 TROPONIN T ng/mL 0.33* 0.36* Recent Labs Lab Units 07/29/18 0626 07/29/18 000 SODIUM mmol/L 139 137 POTASSIUM PLASMA mmol/L 3.8 3.7 CHLORIDE mmol/L 104 100 CO2 mmol/L 25 24 BUN SERUM mg/dL 10 11 CREATININE mg/dL 0.66 0.77 ADE-CTT-QZTNXTS mL/min/1.73 m2 85 74 GLUCOSE mg/dL 119 [...] Wave Duration ms QRS-Interval (MSEC) 83 ms ND-Interval (MSEC) ms QT Interval 287 ms QTc 434 ms QTC Interval ms P Montgomery deg QRS Montgomery 10 deg T Montgomery 31 deg Coronary angiography 12/29/2013: IMPRESSION 1. [...] ED Notes * Harjit Kovacs MD - 07/29/2018 12:10 AM CDTAssociated Order(s): ECG 12 lead [facility] Chief Complaint Patient presents with ??? 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 Patient History Patient Active Problem List Diagnosis Date Noted ??? B12 deficiency 12/23/2017 ??? Atrial fibrillation with RVR (CMS/HCC) 09/25/2017 ??? Abdominal aortic aneurysm (AAA) without rupture (CMS/HCC) 06/25/2017 ??? Anxiety 03/12/2017 ??? Coronary artery disease involving [place] coronary artery of [place] heart without angina pectoris 12/25/2016 ??? Paroxysmal [...] Comment: Discussed with Mara Power for Dr. [place]. 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 Pt reports hx of acid reflux, thinks [...] eGFR 59 mL/min/1.7 3 m2 ANDREW JUAREZ ([place]) Comment: Interpretive Data Reference Interval Normal ?>/= 90 mL/min/1.73m2 Mildly decreased* ? 60 - 89 mL/min/1.73m2 Mildly to moderately decreased ?45 - 59 mL/min/1.73m2 Moderately to severely decreased ??30 - 44 mL/min/1.73m2 Severely decreased ?15 - 29 mL/min/1.73m2 Kidney Failure ?< 15 ??mL/min/1.73m2 *Relative to young adult level If -Slovak multiply value by 1.16. Estimated glomerular filtration [...] AM CDT 07/30/2018 7:06 AM CDT Narrative CELYOSCAR JUAREZ ([place]) - 07/30/2018 8:47 AM CDT us Dinah Anguiano MD LAB BLOOD ORDERABLES Final Re sult ANDREW ANN ([place]) 1 [facility] Department [place] [address] * (ABNORMAL) Troponin T (07/30/2018 6:55 AM CDT) Pathologist [facility] Troponin T 0.67(C) 0.00 - 0.01 ng/mL [facility] (OG) Comment: Consistent with previous critical value [...] limit for troponin assay. ??Journal of the [place] College of Cardiology 2012;60:1581-98. Current Interpretive Data Last Revised Date: 2017. Blood specimen (specimen) 07/30/2018 6:55 AM CDT 07/30/2018 7:06 AM CDT Narrative [facility]REW [facility] (OG) - 07/30/2018 9:11 AM CDT Dinah Anguiano MD LAB BLOOD ORDERABLES Final Re sult ANDREW [facility] (OG) 1 [facility] Department [place] [address] * CBC without differential (07/30/2018 6:55 AM CDT) Pathologist [facility] WBC 6.9 3.8 - 9.9 K/cumm CERNER [...] (OG) MCHC 34.3 32.3 - 35.7 g/dL [facility] (OG) RDW CV 13.0 11.1 - 14.9 % [facility] (OG) RDW SD 42.9 35.7 - 48.1 fL [facility]REW [facility] (OG) NRBC abs 0.00 0.00 - 0.01 K/cumm [facility] (OG) Blood specimen (specimen) 07/30/2018 6:55 AM CDT 07/30/2018 7:06 AM CDT Narrative ANDREW JUAREZ (OG) - 07/30/2018 7:12 AM CDT us Dinah Anguiano MD LAB BLOOD ORDERABLES Final Re sult ANDREW JUAREZ (OG) 1 [facility] Department [place] [address] * Basic metabolic panel (07/30/2018 6:55 AM CDT) Sodium 139 135 - 145 mmol/L [facility] (OG) Potassium, pl 3.9 3.3 - 4.9 mmol/L [facility] (OG) Chloride 105 97 - 110 mmol/L [facility] (OG) CO2 24 22 - 32 mmol/L [facility] (OG) Anion gap 10 2 - 15 mmol/L [facility] (OG) BUN 11 8 - 25 mg/dL [facility] (OG) Creatinine 0.93 0.60 - 1.10 mg/dL [facility] (OG) Glucose 108 70 - 199 mg/dL [facility] (OG) Comment: Interpretive Data Fasting glucose >/= [...] 2017. Calcium 8.8 8.5 - 10.3 mg/dL [facility] ([facility]) Blood specimen (specimen) 07/30/2018 6:55 AM CDT 07/30/2018 7:06 AM CDT Narrative ANDREW JUAREZ (OG) - 07/30/2018 8:47 AM CDT Dinah Anguiano MD LAB BLOOD ORDERABLES Final Re sult ANDREW JUAREZ (OG) 1 [facility] [place] [address] * Magnesium (07/30/2018 6:55 AM CDT) Magnesium 1.8 1.6 - 2.4 mg/dL ANDREW JUAREZ (OG) Blood specimen (specimen) 07/30/2018 6:55 AM CDT 07/30/2018 7:06 AM CDT Narrative ANDREW JUAREZ (OG) - 07/30/2018 8:47 AM CDT us Dinah Anguiano MD LAB BLOOD ORDERABLES Final Re sult Performing Organization Address [facility] Co de Phone Number ANDREW JUAREZ ([place]) [address] [place] [address] [place] [address] * Phosphorus (07/30/2018 6:55 AM CDT) Phosphorus, pl 3.7 2.3 - 4.5 mg/dL ANDREW JUAREZ (OG) Blood specimen (specimen) 07/30/2018 6:55 AM CDT 07/30/2018 7:06 AM CDT Narrative ANDREW JUAREZ (OG) - 07/30/2018 8:47 AM CDT Dinah Anguiano MD LAB BLOOD ORDERABLES Final Re sult ANDREW JUAREZ (OG) 1 [facility] [place] [address] * ECG 12 lead (07/30/2018 6:22 AM CDT) 07/30/2018 6:22 AM CDT Narrative [facility] - 07/30/2018 9:38 AM CDT Vent Rate: 101 bpm RR Interval: 593 msec ND Interval: 0 msec QRS Duration: 97 msec QT Interval: 376 msec QTC Interval: 434 msec P-R-T Montgomery: 0 - 32 - -2 degrees ATRIAL FIBRILLATION WITH RAPID VENTRICULAR RESPONSE MODERATE ST DEPRESSION [0.05+ mV ST DEPRESSION] ABNORMAL ECG Compared to 07/29/2018 no change Electronically Signed By: Dr Jarrett Mathis Dinah Anguiano MD ECG ORDERABLES Final Result Performing Organization Address [facility] Co de Phone Number [facility] Nor1 [facility] * (ABNORMAL) Troponin T (07/30/2018 12:00 AM [...] limit for troponin assay. ??Journal of the [place] College of Cardiology 2012;60:1581-98. Current Interpretive Data Last Revised Date: 2017. Blood specimen (specimen) 07/30/2018 07/30/2018 12:05 AM CDT Narrative ANDREW JUAREZ (OG) - 07/30/2018 12:33 AM CDT Dinah Anguiano MD LAB BLOOD ORDERABLES Final Re sult Performing Organization Address City/[facility] Co de Phone Number ANDREW JUAREZ (OG) 1 [facility] Department [place] [address] * (ABNORMAL) Troponin T (07/29/2018 6:10 PM CDT) Troponin T 0.59(C) 0.00 - 0.01 ng/mL ANDREW JUAREZ (OG) Comment: Critical Result called to and read back by luis fernando aparna [facility], DATE: 2018-07-29 18:34:06 BY: torie rosario Interpretive [...] limit for troponin assay. ??Journal of the [place] College of Cardiology 2012;60:1581-98. Current Interpretive Data Last Revised Date: 2017. Blood specimen (specimen) 07/29/2018 6:10 PM CDT 07/29/2018 6:11 PM CDT Narrative ANDREW JUAREZ (OG) - 07/29/2018 6:34 PM CDT Dinah Anguiano MD LAB BLOOD ORDERABLES Final Re sult ANDREW ANN (OG) 1 [facility] Department [place] [address] * X-ray chest 1 view (07/29/2018 4:35 [...] PNEUMOTHORAX. Electronically signed by: Jesus Celaya M.D. Guanakito [place] MD IMG XR PROCEDURES Final Resul t * IMPLANT DUAL CHAMBER PPM SYSTEM W/ DUAL ELECTRODES (GEN AND LEADS, NEW OR REPLACE) (07/29/2018 2:24PM CDT) Anatomical Region Laterality Modality X-Ray Angiograph y 07/29/2018 Narrative 07/30/2018 10:12 AM CDT Reply.io Job ID: [id number] Reply.io Document ID: [id number] Dictated date/time: [id number] CARDIOLOGY PROCEDURE NOTE DATE OF PROCEDURE 29 [...] patient was brought down to the cardiac laboratory apparatus glass grinder where she was prepared in the usual fashion. ??There was continuous monitoring of O2 saturation, blood pressure, heart rate and EKG. ??When well sedated, 1% lidocaine was given to the left infraclavicular region. ??Access to the left subclavian vein was obtained on the 1st stick. ??A J-tipped guidewire was then placed into [...] the new pulse generator. ??This is a [employer] Edora 8 DR-T device. ??Wirelessly, it was [...] of infection postoperatively. JOB ID/VF JOB ID: ??[id number] us Guanakito [place] MD CV ELECTROPHYSIOLOGY PROCS Fi nal Result * (ABNORMAL) Troponin T (07/29/2018 12:08 PM CDT) [facility] Troponin T 0.40(C) 0.00 - 0.01 ng/mL ANDREW JUAREZ ([place]) Comment: Consistent with previous critical value Interpretive [...] limit for troponin assay. ??Journal of the [place] College of Cardiology 2012;60:1581-98. Current Interpretive Data Last Revised Date: 2017. Blood specimen (specimen) 07/29/2018 12:08 PM CDT 07/29/2018 12:19 PM CDT Narrative ANDREW JUAREZ (OG) - 07/29/2018 12:50 PM CDT us Dinah Anguiano MD LAB BLOOD ORDERABLES Final Re sult ANDREW JUAREZ (OG) 1 [facility] Department [place] [address] * TRANSTHORACIC ECHO (TTE) COMPLETE W DOPPLER/CF WO CONTRAST (07/29/2018 11:36 AM CDT) Anatomical Region Laterality Modality Ultrasound 07/29/2018 8:36 AM CDT Narrative 07/29/2018 3:00 PM CDT [address] [place] [address] Echocardiogram Report Patient Name: ABENA GIRON : 1940 Study Date: 07/29/2018 08:36:23 Gender: F Tech: AGRICULTURE MANAGER Location: [id number] Ref.Provider: JARRETT OQUENDO Height(Cm): 155 BSA: 1.79 [...] Procedure Note Guanakito [place] MD - 07/29/[address] [place] [address] Echocardiogram Report Patient Name: ABENA GIRONPatient ID: [id number] : [id number] Date: 07/29/2018 08:36:23 Gender: FAccession #: [id number] Tech: NPLocation: [id number] Ref.Provider: Natanael OQUENDO(Cm): 155 BSA: 1.79Weight(Kg): 74.4 Quality: Technically Difficult StudyOrder Provider: Silvio Procedures: Echocardiographic Report: Transthoracic echocardiogram [...] - 100 ] msec MVA5.00 MV Decel Ibym517 [ 104 - 258 ] msec PV Peak Vel0.64 [ 0.40 - 0.80 ] m/s TR Peak Vel1.90 [ 1.00 - 2.80 ] m/s TR Peak PG 14mmHg RVSP24.00 [ 10.00 - 36.00 ] mmHg E'0.08 E/E'11.82 PA Bdlzvyvr57.00 [ 10.00 - 36.00 ] mmHg Findings: [...] ??mL/min/1.73m2 *Relative to young adult level If -Slovak multiply value by 1.16. Estimated glomerular filtration [...] AM CDT 07/29/2018 6:54 AM CDT Narrative [facility] ([facility]) - 07/29/2018 7:32 AM CDT us Dinah Anguiano MD LAB BLOOD ORDERABLES Final Re sult [facility]REW [facility] (OG) 1 [facility] [place] [address] * CBC without differential (07/29/2018 6:26 AM CDT) WBC 7.5 3.8 - 9.9 K/cumm [facility] (OG) Hgb 12.9 11.9 - 15.5 g/dL [facility] (OG) Hct 37.1 35.6 - 45.5 % [facility] (OG) Plt 180 150 - 400 K/cumm [facility] (OG) MPV 10.8 9.1 - 12.3 fL [facility] (OG) RBC 4.08 3.90 - 5.20 M/cumm [facility] (OG) MCV 90.9 81.3 - 96.4 fL [facility] (OG) MCH 31.6 27.1 - 33.3 pg [facility] (OG) MCHC 34.8 32.3 - 35.7 g/dL [facility] (OG) RDW CV 12.7 11.1 - 14.9 % [facility] (OG) RDW SD 41.6 35.7 - 48.1 fL [facility] (OG) NRBC abs 0.00 0.00 - 0.01 K/cumm [facility] (OG) Blood specimen (specimen) 07/29/2018 6:26 AM CDT 07/29/2018 6:54 AM CDT Narrative [facility]W [facility] (OG) - 07/29/2018 6:57 AM CDT us Dinah Anguiano MD LAB BLOOD ORDERABLES Final Re sult ANDREW JUAREZ (OG) 1 [facility] Department [place] [address] * Basic metabolic panel (07/29/2018 6:26 AM CDT) Pathologist [facility] Sodium 139 135 - 145 mmol/L [facility] (OG) Potassium, pl 3.8 3.3 - 4.9 mmol/L [facility] (OG) Chloride 104 97 - 110 mmol/L [facility] (OG) CO2 25 22 - 32 mmol/L [facility] (OG) Anion gap 10 2 - 15 mmol/L [facility] (OG) BUN 10 8 - 25 mg/dL [facility] (OG) Creatinine 0.66 0.60 - 1.10 mg/dL [facility] (OG) Glucose 119 70 - 199 mg/dL [facility] (OG) Comment: Interpretive Data Fasting glucose >/= [...] 2017. Calcium 9.0 8.5 - 10.3 mg/dL [facility] (OG) Blood specimen (specimen) 07/29/2018 6:26 AM CDT 07/29/2018 6:54 AM CDT Narrative ANDREW [facility] ([place]) - 07/29/2018 7:32 AM CDT us Dinah Anguiano MD LAB BLOOD ORDERABLES Final Re sult ANDREW JUAREZ (OG) 1 [facility] Department [place] [address] * Magnesium (07/29/2018 6:26 AM CDT) Pathologist [facility] Magnesium 1.9 1.6 - 2.4 mg/dL [facility] ([place]) Blood specimen (specimen) 07/29/2018 6:26 AM CDT 07/29/2018 6:54 AM CDT Narrative ANDREW JUAREZ (OG) - 07/29/2018 7:32 AM CDT Dinah Anguiano MD LAB BLOOD ORDERABLES Final Re sult Performing Organization Address City/[facility] Co de Phone Number ANDREW [facility] ([place]) [address] [place] [address] [place] [address] * Phosphorus (07/29/2018 6:26 AM CDT) [facility] Phosphorus, pl 3.5 2.3 - 4.5 mg/dL [facility] ([place]) Blood specimen (specimen) 07/29/2018 6:26 AM CDT 07/29/2018 6:54 AM CDT Narrative [facility] (OG) - 07/29/2018 7:32 AM CDT Dinah Anguiano MD LAB BLOOD ORDERABLES Final Re sult Performing Organization Address [facility] de Phone Number ANDREW JUAREZ ([place]) [address] [place] [address] [place] [address] * Hemoglobin A1c (07/29/2018 6:26 AM CDT) [facility] Hgb A1C 5.5 4.0 - 5.6 % [facility] ([place]) Estimated Average Glucose 111 mg/dL [facility] ([place]) Comment: The ADA recommends reporting an estimated Average Glucose (eAG) with all Hemoglobin A1c results using the equation derived from a study of 507 normal and diabetic adults. ??Minority populations were underrepresented and children were not included. ?? (Diabetes Care 31:7858-1283, 2008). ??The eAG is not equivalent to a fasting glucose. Blood specimen (specimen) 07/29/2018 6:26 AM CDT 07/29/2018 6:54 AM CDT Narrative ANDREW JUAREZ (OG) - 07/29/2018 7:26 AM CDT Dinah Anguiano MD LAB BLOOD ORDERABLES Final Re sult Performing Organization Address City/[facility]/ZIP Co de Phone Number ANDREW RICH) [address] [place] [facility] [place] [address] * TSH reflex to free T4 (07/29/2018 6:26 AM CDT) TSH 0.88 0.30 - 4.20 mcIUnit/mL ANDREW JUAREZ (OG) Blood specimen (specimen) 07/29/2018 6:26 AM CDT 07/29/2018 6:54 AM CDT Narrative ANDREW JUAREZ (OG) - 07/29/2018 7:32 AM CDT Dinah Anguiano MD LAB BLOOD ORDERABLES Final Re sult Performing Organization Address City/[facility] Co de Phone Number ANDREW JUAREZ (OG) 1 [facility] [place] [address] * (ABNORMAL) Troponin T (07/29/2018 6:26 AM CDT) Troponin T 0.33(C) 0.00 - 0.01 ng/mL ANDREW JUAREZ (OG) [...] limit for troponin assay. ??Journal of the [place] [employer] 2012;60:1581-98. Current Interpretive Data Last Revised Date: 2017. Blood specimen (specimen) 07/29/2018 6:26 AM CDT 07/29/2018 6:54 AM CDT Narrative [facility]REW [facility] (OG) - 07/29/2018 7:33 AM CDT Dinah Anguiano MD LAB BLOOD ORDERABLES Final Re sult Performing Organization Address City/[facility]/ZIP Co de Phone Number ANDREW RICH) 1 [facility] Department [place] [address] * ECG 12 lead (07/29/2018 5:54 AM CDT) 07/29/2018 5:54 AM CDT Narrative [facility] - 07/29/2018 7:28 AM CDT Vent Rate: 101 bpm RR Interval: 592 msec ND Interval: 0 msec QRS Duration: 95 msec QT Interval: 318 msec QTC Interval: 376 msec P-R-T [place]: 0 - 29 - 17 degrees ATRIAL FIBRILLATION WITH RAPID VENTRICULAR RESPONSE NONSPECIFIC ST \T\ T-WAVE ABNORMALITY ABNORMAL RHYTHM ECG Compared to 07/29/2018 no change Electronically Signed By: Dr Jarrett Mathis Dinah Anguiano MD ECG ORDERABLES Final Result Performing Organization Address [facility] Co de Phone Number [facility] * XR Chest 1 View (07/29/2018 12:17 [...] CDT) 07/29/2018 12:1 4 AM CDT Narrative [facility] - 07/29/2018 7:34 AM CDT Vent Rate: 136 bpm RR Interval: 440 msec ND Interval: 0 msec QRS Duration: 88 msec QT Interval: 260 msec QTC Interval: 340 msec P-R-T [place]: 0 - 12 - 0 degrees ATRIAL FIBRILLATION WITH RAPID VENTRICULAR RESPONSE MARKED ST DEPRESSION, CONSIDER ??SUBENDOCARDIAL INJURY [0.2+ mV ST DEPRESSION] ABNORMAL ECG Compared to 02/09/2016 atrial fibrillation is new, ST depression is new Electronically Signed By: Dr Jarrett Mathis us Harjit Kovacs MD ECG ORDERABLES Final Result [facility] * eGFR (07/29/2018 12:08 AM CDT) eGFR 74 mL/min/1.7 3 m2 ANDREW JUAREZ (OG) Comment: Interpretive Data Reference Interval Normal ?>/= 90 mL/min/1.73m2 Mildly decreased* ? 60 - 89 mL/min/1.73m2 Mildly to moderately decreased ?45 - 59 mL/min/1.73m2 Moderately to severely decreased ??30 - 44 mL/min/1.73m2 Severely decreased ?15 - 29 mL/min/1.73m2 Kidney Failure ?< 15 ??mL/min/1.73m2 *Relative to young adult level If -Slov[place] multiply value by 1.16. Estimated glomerular filtration [...] BLOOD ORDERABLES Final R esult ANDREW JUAREZ (MORGAN) 1 [facility] Department [place] [address] * (ABNORMAL) Lipid panel (07/29/2018 12:08 AM CDT) Cholesterol 169 30 - 199 mg/dL ANDREW JUAREZ (OG) Comment: Interpretive Data [...] 2017. Non-HDL Cholesterol 137 mg/dL ANDREW JUAREZ (MORGAN) Comment: Interpretive Data Ages < or = [...] on 2017. Chol/HDL ratio 5 FERNANDO JUAREZ (MORGAN) Blood specimen (specimen) 07/29/2018 12:08 AM CDT 07/29/2018 12:12 AM CDT Narrative ANDREW JUAREZ (MORGAN) - 07/29/2018 12:53 AM CDT This lipid panel was automatically ordered due to a Troponin-T. The dietary status of the patient at the collection time should be correlated with the lipid results. (Reflex test added by rule [id number]; ag1) us Harjit Kovacs MD LAB BLOOD ORDERABLES Final R esult ANDREW JUAREZ (MORGAN) 1 [facility] Department [place] [address] * (ABNORMAL) Differential, auto (07/29/2018 12:08 AM [...] ORDERABLES Final R esult Performing Organization Address [facility] de Phone Number ANDREW JUAREZ (OG) 1 [facility] [place] [address] * (ABNORMAL) Troponin T (07/29/2018 12:08 AM CDT) Troponin T 0.36(C) 0.00 - 0.01 ng/mL ANDREW JUAREZ (MORGAN) Comment: Critical Result called to and read [...] limit for troponin assay. ??Journal of the [place] [employer] 2012;60:1581-98. Current Interpretive Data Last Revised Date: 2017. Blood specimen (specimen) 07/29/2018 12:08 AM CDT 07/29/2018 12:12 AM CDT Narrative ANDREW JUAREZ (OG) - 07/29/2018 12:40 AM CDT Harjit Kovacs MD LAB BLOOD ORDERABLES Final R esult Performing Organization Address [facility] Co de Phone Number ANDREW JUAREZ (OG) 1 [facility] Department [place] [address] * Protime-INR (07/29/2018 12:08 AM CDT) PT 12.8 9.5 - 13.0 sec CELYOSCAR JUAREZ (OG) INR 1.13 0.90 - 1.20 [...] BLOOD ORDERABLES Final R esult ANDREW JUAREZ (MORGAN) 1 [facility] Department [place] [address] * (ABNORMAL) Pro B-type natriuretic peptide (07/29/2018 12:08 AM CDT) NT-proBNP 2,810(H) <=450 pg/mL ANDREW JUAREZ (MORGAN) Comment: Interpretive Comments: A. Dyspnea in Acute [...] CDT Narrative ANDREW [facility] (OG) - 07/29/2018 12:42 AM CDT Harjit Kovacs MD LAB BLOOD ORDERABLES Final R esult Performing Organization Address [facility] Co de Phone Number ANDREW JUAREZ (OG) [address] [place] [address] [place] [address] * Magnesium (07/29/2018 12:08 AM CDT) Magnesium 1.8 1.6 - 2.4 mg/dL [facility] (OG) Blood specimen (specimen) 07/29/2018 12:08 AM CDT 07/29/2018 12:12 AM CDT Narrative ANDREW [facility] (OG) - 07/29/2018 12:40 AM CDT Harjit Kovacs MD LAB BLOOD ORDERABLES Final R esult Performing Organization Address City/[facility] Co de Phone Number ANDREW JUAREZ (MORGAN) [address] [place] [address] [place] [address] * Comprehensive metabolic panel (07/29/2018 12:08 AM CDT) Sodium 137 135 - 145 mmol/L [facility] (OG) Potassium, pl 3.7 3.3 - 4.9 mmol/L [facility] (OG) Chloride 100 97 - 110 mmol/L [...] 2017. Calcium 9.3 8.5 - 10.3 mg/dL [facility] Bilirubin, total 0.5 0.1 - 1.2 mg/dL [facility] Protein, pl 6.7 6.5 - [...] Final R esult ANDREW [facility] (OG) 1 [facility] Department [place] [address] * CBC with auto differential (07/29/2018 12:08 AM CDT) WBC 9.4 3.8 - 9.9 K/cumm [facility] (OG) Hgb 14.2 11.9 - 15.5 g/dL [facility] (OG) Hct 41.8 35.6 - 45.5 % [facility] (OG) Plt 228 150 - 400 K/cumm [facility] (OG) MPV 10.9 9.1 - 12.3 fL [facility] (OG) RBC 4.56 3.90 - 5.20 M/cumm [facility] (OG) MCV 91.7 81.3 - 96.4 fL [facility] (OG) MCH 31.1 27.1 - 33.3 pg [facility] (OG) MCHC 34.0 32.3 - 35.7 g/dL [facility] (OG) RDW CV 12.7 11.1 - 14.9 % [facility] (OG) RDW SD 42.3 35.7 - 48.1 fL [facility] (OG) NRBC abs 0.00 0.00 - 0.01 K/cumm [facility] (OG) Blood specimen (specimen) 07/29/2018 12:08 AM CDT 07/29/2018 12:12 AM CDT Narrative ANDREW [facility] (OG) - 07/29/2018 12:34 AM CDT Harjit Kovacs MD LAB BLOOD ORDERABLES Final R esult ANDREW JUAREZ (OG) 1 [facility] Department [place] [address] * aPTT (07/29/2018 12:08 AM CDT) aPTT 31.1 25.0 - 37.0 sec ANDREW [facility] (OG) Blood specimen (specimen) 07/29/2018 12:08 AM CDT 07/29/2018 12:12 AM CDT Narrative ANDREW [facility] (OG) - 07/29/2018 12:27 AM CDT Harjit Kovacs MD LAB BLOOD ORDERABLES Final R esult ANDREW [facility] OG) 1 [facility] Department [place] [address] documented in this encounter Visit Diagnoses Not [...] Given 07/29/2018 3:35 PM CDT 650 mg aluminum-magnesium hydroxide-simethicone (MAALOX) 40-40-4 mg/mL oral suspension 30 mL 30 mL, oral, 4 times daily PRN, indigestion, heartburn, Starting on Fri07/30/18 at 0800 Given 07/30/2018 8:12 AM CDT 30 mL apixaban (ELIQUIS) tablet 5 mg 5 mg, oral, 2 times daily, First dose (after last modification) on Fri07/30/18 at 2100, May crush and suspend in 60 ml of water, D5W, apple juice or apple sauce. If on heparin infusion, discontinue heparin infusion upon first administration of apixaban., Indications: atrial fibrillationIndications:atrial fibrillation ceFAZolin (ANCEF) 1 gram/10 mL in sterile water (premix) Administer over 3 Minutes, Continuous PRN, Starting on Fri07/29/18 at 1325, Intra-Procedure (CV) New Bag 07/29/2018 1:25 PM CDT 2,000 mg dilTIAZem XR (CARDIZEM CD,DILACOR XR) 24 hour capsule 240 mg 240 mg, oral, Daily, First dose on Fri07/30/18 at 0900, Do not crush, chew, cut, dissolve, open or otherwise manipulate tablet/capsule. Given 07/30/2018 9:55 AM CDT 240 mg diphenhydrAMINE (BENADRYL) injection Administer over 2 Minutes, As needed, Starting on Fri07/29/18 at 1317, Intra-Procedure (CV) Given 07/29/2018 1:17 PM CDT 50 mg famotidine (PEPCID) tablet 20 mg 20 mg, oral, Daily, First dose (after last modification) on Fri07/29/18 at 1845, Dose of famotidine adjusted per renal protocol for CrCl=30-50 ml/min (CrCl=43.7 ml/min) Given 07/30/2018 8:13 AM CDT 20 mg Given 07/29/2018 6:50 PM CDT 20 mg fentaNYL (SUBLIMAZE) preservative free injection As needed, Starting on Fri07/29/18 at 1325, Intra-Procedure (CV) Given 07/29/2018 1:46 PM CDT 100 mcg Given 07/29/2018 1:18 PM CDT 100 mcg lidocaine PF (XYLOCAINE) 10 mg/mL (1 %) preservative free injection As needed, Starting on Fri07/29/18 at 1340, Intra-Procedure (CV) Given 07/29/2018 2:12 PM CDT 10 mL Chest Given 07/29/2018 1:40 PM CDT 20 mL Le ft Chest metoprolol (LOPRESSOR) injection Administer over 1 Minutes, As needed, Starting on Fri07/29/18 at 1439, Intra-Procedure (CV) Given 07/29/2018 2:30 PM CDT 5 mg midazolam (VERSED) preservative free injection Administer over 2 Minutes, As needed, Starting on Fri07/29/18 at 1325, Intra-Procedure (CV) Given 07/29/2018 1:35 PM CDT 2 mg Given 07/29/2018 1:18 PM CDT 2 mg ondansetron (ZOFRAN) injection 4 mg 4 mg, intravenous, Administer over 2 Minutes, Every 6 hours PRN, nausea, vomiting, if not tolerating PO, Starting on Fri07/29/18 at 0233, Indications: Nausea and VomitingIndications:Nausea and Vomiting Given 07/29/2018 5:30 PM CDT 4 mg Given 07/29/2018 11:54 AM CDT 4 mg ondansetron (ZOFRAN) injection Administer over 2 Minutes, As needed, Starting on Fri07/29/18 at 1322, Intra-Procedure (CV) Given 07/29/2018 1:22 PM CDT 4 mg ondansetron ODT (ZOFRAN-ODT) disintegrating tablet 4 mg 4 mg, oral, Every 6 hours PRN, nausea, vomiting, Starting on Fri07/29/18 at 0233, Indications: Nausea and VomitingIndications:Nausea and Vomiting sodium chloride 0.9% flush 0.5-20 [...] , Indications: FlushingIndications:Flushing sodium chloride 0.9% infusion Continuous PRN, Starting on Fri07/29/18 at 1314, Intra-Procedure (CV) New Bag 07/29/2018 1:14 PM CDT 50 mL/hr 50 mL/hr documented in [...] dose 0017 (Given - Provider: Natalie Mayers, RBAYAN) amiodarone (NEXTERONE) 150 mg/100 mL (1.5 mg/mL) in dextrose (premix) 150 mg (COMPLETED) 150 mg, intravenous, at 600 mL/hr, Administer over 10 Minutes, Once, On Fri07/29/18 at 0105, For 1 dose, Use filter 0.22 micron or less 0116 (New Bag - Provider: Mellissa Cash, RN - Comment: Iv pump)0129 (Stopped - Provider: Mellissa Cash, RN) apixaban (ELIQUIS) tablet 5 mg 5 mg, oral, 2 times daily, First dose (after last modification) on Fri07/30/18 at 2100, May crush and suspend in [...] 2117 (New Bag - Provider: Carol Ann Friedman RN) 0605 (New Bag - Provider: Carol Ann Friedman RN) digoxin (LANOXIN) injection 250 mcg (COMPLETED) 250 mcg, intravenous, Administer over 5 Minutes, Once, On Fri07/29/18 at 0039, For 1 dose 0044 (Given - Provider: Natalie Mayers, BRAYAN) dilTIAZem (CARDIZEM) injection 10 mg (COMPLETED) 10 mg, intravenous, Administer over 2 Minutes, Once, On Fri07/30/18 at 0845, For 1 dose, Refrigerate 0813 (Given - Provid er: Watson Meyer RN) dilTIAZem XR (CARDIZEM CD,DILACOR XR) [...] 0855 (Given - Provider: Lucy Jin RN)1226 (MAY Hold - Provider: Automatic Transfer Provider - Reason: Patient not available)1443 (MAY Unhold - Provider: Automatic Transfer Provider) famotidine [...] Vomiting 0138 (Given - Provider: Mellissa Cash, BRAYAN) sodium chloride 0.9% bolus 1,000 mL (COMPLETED) 1,000 mL, intravenous, Once, On Fri07/29/18 at 0039, For 1 dose 0040 (New Bag - Provider: Natalie Mayers, BRAYAN)0049 (Rate/Dose Change - Provider: Natalie Mayers, BRAYAN - Comment: alaris pump)0104 (Stopped - Provider: Natalie Mayers, BRAYAN) sodium chloride 0.9% flush 0.5-20 mL [...] Transfer Provider)1535 (Given - Provider: Lucy Jin RN)211 (Given - Provider: Carol Ann Friedman RN) 0451 (Given - Provider: Carol Ann Friedman [...] indigestion, heartburn, Starting on Fri07/30/18 at 0800 0812 (Given - Provid er: [...] Intra-Procedure (CV) 1317 (Given - Provider: Kraig Reilly, BRAYAN) docusate sodium (COLACE) capsule 100 mg 100 mg, oral, 2 times daily PRN, constipation, Starting on Fri07/29/18 at 0347, Indications: constipation 1226 (MAY Hold - Provider: Automatic Transfer Provider - Reason: Patient not available)1443 (MAY Unhold - Provider: Automatic Transfer Provider) fentaNYL (SUBLIMAZE) preservative free injection (CANCELED) As needed, Starting on Fri07/29/18 at 1325, Intra-Procedure (CV) 1318 (Given - Provider: Kraig Reilly, BRAYAN)1346 (Given - Provider: Kraig Reilly, BRAYAN) lidocaine PF (XYLOCAINE) 10 mg/mL (1 %) preservative free injection (CANCELED) As needed, Starting on Fri07/29/18 at 1340, Intra-Procedure (CV) 1340 (Given - Provider: Guanakito Holland MD)1412 (Given - Provider: Guanakito Holland MD - Comment: [facility] estephanie) metoprolol (LOPRESSOR) injection (CANCELED) Administer over 1 Minutes, As needed, Starting on Fri07/29/18 at 1439, Intra-Procedure (CV) 1430 (Given - Provider: Kraig Reilly RN - Comment: allergy reviewed with dr. [...] Transfer Provider - Reason: Patient not available)1443 ([facility] Unhold - Provider: Automatic Transfer Provider)1730 (Given - Provider: Lucy Jin RN) ondansetron (ZOFRAN) injection (CANCELED) Administer over 2 Minutes, As needed, Starting on Fri07/29/18 at 1322, Intra-Procedure (CV) 1322 (Given - Provider: Kraig Reilly RN) ondansetron ODT (ZOFRAN-ODT) disintegrating tablet 4 mg(Linked Group 1) 4 mg, oral, Every 6 hours PRN, nausea, vomiting, Starting on Fri07/29/18 at 0233, Indications: Nausea and Vomiting 1154 (See Alternative - Provider: Lucy Jin RN)1226 (MAY Hold - Provider: Automatic Transfer Provider - Reason: Patient not available)1443 ([facility] Unhold - Provider: Automatic Transfer Provider)1730 (See Alternative - Provider: Lucy Jin RN) sodium chloride 0.9% flush 0.5-20 mL 0.5-20 mL, intra-catheter, As needed, line care, Starting on Fri07/29/18 at 1526, Recovery (CV), Flush volume based on line type and size. Flush before and after each use. , Indications: Flushing sodium chloride 0.9% infusion (COMPLETED) Continuous PRN, Starting on Fri07/29/18 at 1314, Intra-Procedure (CV) 1314 (New Bag - Provider: Kriag Reilly RN) Linked Groups Order Group 1: [...] Count Last Ordered Date First Ordered Date aluminum-magnesium hydroxide -simethicone (MAALOX) 40-40-4 mg/mL oral suspension 30 mL 1 07/30/2018 dilTIAZem (CARDIZEM) injection 10 mg 1 11/2018 dilTIAZem XR (CARDIZEM CD,DI LACOR XR) 24 hour capsule 240 mg 1 07/30/2018 metoprolol XL (TOPROL-XL) ex tended release tablet 100 mg 1 07/30/2018 acetaminophen (TYLENOL) tablet 650 mg 1 10/2018 ALPRAZolam (XANAX) tablet 0.5 mg 1 07/30/19 19 amiodarone (NEXTERONE) 150 m g/100 mL (1.5 mg/mL) in dextrose (premix) 150 mg 1 07/29/2018 amiodarone in dextrose (NEXT ERONE) 360 mg/200 mL (1.8 mg/mL) infusion (premix) 1 07/29/2018 apixaban (ELIQUIS) tablet 5 mg 2 07/29/2018 ceFAZolin (ANCEF) 2,000 mg i n sterile water 20 mL (100 mg/mL) IV syringe 1 07/29/2018 ceFAZolin (ANCEF) 2000 mg/10 0 mL in dextrose (premix) 2,000 mg 1 07/29/2018 digoxin (LANOXIN) injection 250 mcg 1 07/29 docusate sodium (COLACE) capsule 100 mg 1 0 07/29/2018 famotidine (PEPCID) injection 20 mg 1 07/29 famotidine (PEPCID) injection 40 mg 1 07/29 famotidine (PEPCID) tablet 20 mg 2 07/30/19 19 fentaNYL (SUBLIMAZE) preserv ative free injection 25 mcg 1 07/29/2018 ondansetron (ZOFRAN) injection 4 mg 2 07/29 ondansetron ODT (ZOFRAN-ODT) disintegrating tablet 4 mg 1 07/29/2018 sodium chloride 0.9% bolus 1,000 mL 1 07/29 sodium chloride 0.9% flush 0.5-20 mL 2 10/2018 sodium chloride 0.9% infusion 2 07/29/2018 vancomycin 1000 mg/200 mL in sodium chloride 0.9% (premix) 1,000 mg 1 07/29/2018 al & mag hydroxide simethico ne-lidocaine oral suspension mixture 1 07/28/2018 Diet Count Last Ordered Date First Orde [...] Date First Orde red Date 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
--- OUTSIDE RECORDS SUMMARY | 2024-04-11 06:40 | XMS_ITS | Encounter Summary ---
Author Organization [facility] Address [address] [place] [address] Care Team Providers Care Wildlife Conservationist Name Role Phone Ronald Castrejon MD Primary Care Provider [phone] Reynaldo Flannery DO Unavailable [phone] Guanakito Holland MD Unavailable [phone] Jaclyn Eid RN Unavailable [phone] Annel Curiel RN Unavailable Encounter Details Date Type Department Care Team (Late st Contact Info) Description 03/19/2017 Orders Only [facility] Health Information Management [address] [place] [address] Scanning, Provider Social History Tobacco Use Types [...] and Family Once a week 03/05/2019 Attends [employer] Not on file 03/05 Active Member [...] Lack of Transportation (Non-Medical) No 03/05/2019 Comments Unknown Sex and Gender Information Value Date Recorded Sex Assigned at Not on file 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 Gender Identity Female 10/09/2022 9:08 AM CDT Sexual Orientation Choose not to disclose 2022 9:08 AM CDT documented as of this encounter Plan of Treatment Not on file documented as of this encounter Procedures Procedure Name Priority Date/Time Associated Diagnosis Comments SCAN - LABS 03/19/2017 10:53 AM NEIGHBORHOOD PLANNER documented in this encounter Results * SCAN - LABS (03/19/2017 10:53 AM NEIGHBORHOOD PLANNER) us Provider Scanning Final Result documented in this encounter Visit Diagnoses Not on filedocumented in this encounter Care Teams Wildlife Conservationist Relationship Specialty Start Date End Date Ronald Castrejon MD PCP - General 06/21/16 07/17/22 Reynaldo Flannery DO Consulting Physician Cardiology 09/26/17 Guanakito Holland MD Consulting Physician Cardiovascular Disease 07/29/18 Jaclyn Eid RN [address] [place] [address] Android Framework Developer 07/31/18 11/29/18 Annel Curiel, BRAYAN [address] [place] [address] Android Framework Developer 11/18/18 05/16/19 documented as of this encounter
--- OUTSIDE RECORDS SUMMARY | 2024-04-11 06:40 | XMS_ITS | Encounter Summary ---
Author Organization [facility] Address [address] [place] [address] Care Team Providers Care Garment Folder Name Role Phone Ronald Castrejon MD Primary Care Provider [phone] Encounter Details Date Type Department Care Team (Late st Contact Info) Description 11/26/2016 9:45 AM CDT [facility] Internal Medicine [address] [place] [id number] Essential hypertension Social History Tobacco Use Types Packs/Day Years Used Date Smoking Tobacco: Former Cigarettes Q uit: 03/24/1969 Alcohol Use Standard Drinks/Week Comments No 0 (1 standard drink = 0.6 oz pur e alcohol) Comments Unknown Sex and Gender Information Value Date Recorded Sex Assigned at Not on file 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
--- OUTSIDE RECORDS SUMMARY | 2024-04-11 06:40 | XMS_ITS | Encounter Summary ---
Author Organization [facility] Address [address] [place] [address] Care Team Providers Care Stamp Mounter Name Role Phone Ronald Castrejon MD Primary Care Provider [phone] Reason for Visit * Reason Comments Cough Earache chest congestion Encounter Details Date Type Department Care Team (Late st Contact Info) Description 03/12/2017 2:00 PM DRILLING RIG OPERATOR Office Visit [facility] [address] [facility] [address] [place] [address] Kandy Eason NP [address] [place] [address] [address] [place] [address] Viral URI with cough (Primary Dx); Cough; Sore throat; Essential hypertension; Paroxysmal atrial fibrillation (CMS/HCC); Anxiety; BMI 30.0-30.9,adult Social History Tobacco Use Types Packs/Day Years Used Date Smoking Tobacco: Former Smokeless Tobacco: Never Alcohol Use Standard Drinks/Week Comments No 0 (1 standard drink = 0.6 oz pur e alcohol) Comments Unknown Sex and Gender Information Value Date Recorded Sex Assigned at Not on file Legal Sex Female 11:18 AM DRILLING RIG OPERATOR Gender Identity Female 10/09/2022 9:08 AM CDT Sexual Orientation Choose not to disclose 2022 9:08 AM CDT documented as of this encounter Last Filed Vital Signs Vital Sign Reading Time Taken Comments Blood Pressure 140/96 03/12/2017 2:08 PM DRILLING RIG OPERATOR Pulse 72 03/12/2017 2:08 PM DRILLING RIG OPERATOR Temperature 36.8 ??C (98.2 ??F) 03/12/2017 2:08 PM CS T Respiratory Rate 16 03/12/2017 2:08 PM DRILLING RIG OPERATOR Oxygen Saturation - - Inhaled Oxygen Concentration - - Weight 74.5 kg (164 lb 3.2 oz) 03/12/2017 2:08 P M DRILLING RIG OPERATOR Height 156.2 cm (5' 1.5 ) 03/12/2017 2:08 PM DRILLING RIG OPERATOR Body Mass Index 30.53 03/12/2017 2:08 PM DRILLING RIG OPERATOR documented in this encounter Ordered Prescriptions Prescription Sig Dispense Quantity Refills Last Filled Start Date End Date azithromycin (ZITHROMAX) 250 mg tabletIndications:V iral URI with cough Take 2 tabs (500 mg) by mouth today, than 1 tab (250 mg) daily for 4 days. 6 tablet 03/12/2017 03/17/2017 documented in this encounter Progress Notes * Kandy Eason, PRECIOUS - 03/12/2017 2:00 PM CST Subjective/Objective Patient ID: Abena Giron is a 76 y.o. female. Chief Complaint Cough; Earache; and chest congestion Patient presents to the office today with complaints of left ear pain, right ear popping, sinus pressure, sinus congestion. No fever. Intermittent nausea. Hot and cold spells intermittently. She has not been checking her temperature with a thermometer. Her cough is productive of clear to milky phlegm although she states this is chronic. No chest pain. No shortness of breath. Patient reports anxiety attacks since she lost her over a year ago. After he she began experiencing intermittent anxiety and panic attacks. She has Xanax for p.r.n. use at home but does not like taking this. She states she is fearful of medications. She states she has not had any ill side effect of this medication but she prefers not to use it. She states in the past she has used it with panic attacks and it has helped. She states on average she is experiencing 1-2 panic attacks a month. In the past she had been on Zoloft but felt it made her feel emotion list. She states she has considered resuming the medication at a lower dose but would like to see how she does without it. She has not been through formal counseling or had a psychiatric visit since she lost her . She has no interest in doing that today. Although, we did discuss the Senior renewal program here locally. She denies any suicidal or homicidal thoughts or ideation. She has supportive family. Review of Systems Constitutional: Positive for fatigue. Negative for activity change, appetite change, chills, diaphoresis and fever. HENT: Positive for congestion, postnasal drip, rhinorrhea, sinus pressure and sore throat. Negativefor dental problem, ear discharge, ear pain, facial swelling, hearing loss, nosebleeds, trouble swallowing and voice change. Eyes: Negative. Respiratory: Positive for cough. Negative for chest tightness and shortness of breath. Cardiovascular: Negative. Negative for chest pain and leg swelling. Gastrointestinal: Negative. Negative for abdominal pain, diarrhea, nausea and vomiting. Genitourinary: Negative. Negative for dysuria, frequency and urgency. Musculoskeletal: Negative. Skin: Negative. Neurological: Negative. Negative for dizziness, weakness, light-headedness and headaches. Hematological: Negative. Psychiatric/Behavioral: Negative. Vitals: 03/12/17 1408 BP: 140/96 BP Location: Left arm Patient Position: Sitting Pulse: 72 Resp: 16 Temp: 36.8 ??C (98.2 ??F) TempSrc: Oral Weight: 74.5 kg (164 lb 3.2 oz) Height: 156.2 cm (5' 1.5 ) Physical Exam Constitutional: She is oriented to person, place, and time. She appears well- developed and well-nourished. HENT: Head: Normocephalic and atraumatic. Right Ear: Tympanic membrane, external ear and ear canal normal. Left Ear: Tympanic membrane, external ear and ear canal normal. Nose: Mucosal edema and rhinorrhea present. Mouth/Throat: Oropharynx is clear and moist. No oropharyngeal exudate. Eyes: Conjunctivae and EOM are normal. Pupils are equal, round, and reactive to light. Neck: Neck supple. Cardiovascular: Normal rate and regular rhythm. Pulmonary/Chest: Effort normal and breath sounds normal. No respiratory distress. She has no wheezes. She has no rales. Abdominal: Soft. Bowel sounds are normal. Lymphadenopathy: She has no cervical adenopathy. Neurological: She is alert and oriented to person, place, and time. Skin: Skin is warm and dry. Psychiatric: She has a normal mood and affect. Her behavior is normal. Patient maintained good eye contact. She was very open with her thoughts and feelings. Assessment/Plan Diagnoses and all orders for this visit: Viral URI with cough (Primary) Assessment & Plan: Humidification, fluids, and rest were recommended. Patient [...] the past with any ill side effects. Orders: - azithromycin (ZITHROMAX) 250 mg tablet; Take 2 tabs (500 mg) by mouth today, than 1 tab (250 mg) daily for 4 days. Cough Assessment & Plan: Influenza A negative influenza B negative. Orders: - POCT influenza A/B Sore throat Assessment & Plan: Rapid strep negative. Orders: - POCT rapid strep A Essential hypertension Assessment & Plan: Blood pressure is slightly elevated during office visit today. Patient states she was nervous aboutcoming in. She was encouraged to monitor her blood pressure outside of the office. She understands it is important to satisfactorily control her blood pressure. She is to contact us with persistent elevation. Paroxysmal atrial fibrillation ([facility]) Assessment & Plan: Patient will continue routine follow-up with Dr. Pennie pierre and local residential treatment staff as recommended. She reports compliance with her daily medication including Eliquis. Anxiety Assessment & Plan: Patient has Xanax for p.r.n. use. She is somewhat afraid to use this medication. She notes a positive response when she needs it. She states she is having panic attacks once to twice a month at max. She has been logging these since December. She states her anxiety/panic began after her .She has not been in for any formal counseling since his passing. [facility]. We discussed Senior renewal. She declines at the present time. She would like to continue tomonitor her panic attacks and was instructed to use Xanax as previously prescribed on an as needed basis. BMI 30.0-30.9,adult Disposition: We discussed dose, use, and potential side effects medication. Risks and interactions reviewed with patient. Indications for testing reviewed. Patient has been instructed to contact the office with any signs or symptoms that are of concern. The patient is to contact the office with anychange in, worsening, or non improvement in condition. Patient verbalized understanding. The patient was given the opportunity to ask all questions and to have all questions answered. Patient is agreement with the plan of care. Kandy Eason NP *This office note was completed using [employer] telecommunications switch technician carlie and may be subject to telecommunications switch technician errors* Cosigned by Ronald Castrejon MD at 03/12/2017 3:21 PM DRILLING RIG OPERATOR LING RIG OPERATOR LING RIG OPERATOR documented in this encounter Miscellaneous Notes * Assessment & Plan Note - Kandy Eason NP - 03/12/2017 2:39 PM CSTAssociated Problem(s): Viral URI with cough (Resolved 06/24/2017) Humidification, fluids, and rest were recommended. Patient [...] the past with any ill side effects. LING RIG OPERATOR * Assessment & Plan Note - Kandy Eason NP - 03/12/2017 2:39 PM CSTAssociated Problem(s): Sore throat (Resolved 06/24/2017) Rapid strep negative. LING RIG OPERATOR * Assessment & Plan Note - Kandy Eason NP - 03/12/2017 2:39 PM CSTAssociated Problem(s): Cough (Resolved 06/24/2017) Influenza A negative influenza B negative. LING RIG OPERATOR * Assessment & Plan Note - Kandy Eason NP - 03/12/2017 2:37 PM CSTAssociated Problem(s): Anxiety Patient has Xanax for p.r.n. use. She is somewhat afraid to use this medication. She notes a positive response when she needs it. She states she is having panic attacks once to twice a month at [place]. She has been logging these since December. She states her anxiety/panic began after her .She has not been in for any formal counseling since his passing. She [facility]. We discussed Senior renewal. She declines at the present time. She would like to continue tomonitor her panic attacks and was instructed to use Xanax as previously prescribed on an as needed basis. LING RIG OPERATOR * Assessment & Plan Note - Kandy Eason NP - 03/12/2017 2:37 PM CSTAssociated Problem(s): Hypertension Blood pressure is slightly elevated during office visit today. Patient states she was nervous aboutcoming in. She was encouraged to monitor her blood pressure outside of the office. She understands it is important to satisfactorily control her blood pressure. She is to contact us with persistent elevation. LING RIG OPERATOR * Assessment & Plan Note - Kandy Eason NP - 03/12/2017 2:37 PM CSTAssociated Problem(s): Paroxysmal atrial fibrillation (CMS/HCC) (HCC) (Resolved 02/13/2024) Patient will continue routine follow-up with Dr. Pennie pierre and local residential treatment staff as recommended. She reports compliance with her daily medication including Eliquis. LING RIG OPERATOR documented in this encounter Plan of Treatment Not on file documented as of this encounter Procedures Procedure Name Priority Date/Time Associated Diagnosis Comments POCT INFLUENZA A/B Routine 03/12/2017 2: 40 PM DRILLING RIG OPERATOR Cough POCT RAPID STREP Routine 03/12/2017 2:39 PM DRILLING RIG OPERATOR Sore throat documented in this encounter Results * POCT influenza A/B (03/12/2017 2:40 PM DRILLING RIG OPERATOR) Rapid Influenza A Ag neg Rapid Influenza B Ag neg Nasal 03/12/2017 2:40 PM DRILLING RIG OPERATOR Kandy Eason IRRIGATION FOREMAN POINT OF CARE TEST ORDERABLES Final Result * POCT rapid strep A (03/12/2017 2:39 PM DRILLING RIG OPERATOR) Rapid Strep A, POC Negative Swab 03/12/2017 2:39 PM DRILLING RIG OPERATOR Kandy Eason NP POINT OF CARE TEST ORDERABLES Final Result documented in this encounter Visit Diagnoses Diagnosis Viral URI with cough- Primary Cough Sore throat Acute pharyngitis Essential hypertension Unspecified essential hypertension Paroxysmal atrial fibrillation (CMS/HCC) (HCC) Atrial fibrillation Anxiety Anxiety state, unspecified BMI 30.0-30.9,adult documented in this encounter Discontinued Medications Medication Sig Discontinue Reason Start Date End Da te aspirin (ASPIR-81) 81 mg tablet take 1 tablet by oral route every day 06/06/2015 03/12/2017 documented as of this encounter Care Teams Stamp Mounter Relationship Specialty Start Date End Date Ronald Castrejon MD PCP - General 06/21/16 07/17/22 documented as of this encounter
--- OUTSIDE RECORDS SUMMARY | 2024-04-11 06:40 | XMS_ITS | Encounter Summary ---
Author Organization [facility] Medical [facility] Address [address] [place] [address] Care Team Providers Care Pattern Illustrator Name Role Phone Ronald Castrejon MD Primary Care Provider [phone] Reynaldo Flannery DO Unavailable [phone] Guanakito Holland MD Unavailable [phone] Jaclyn Eid RN Unavailable [phone] Annel Curiel RN Unavailable Encounter Details Date Type Department Care Team (Late st Contact Info) Description 02/21/2017 [place] Only [facility] [facility] [place] [address] [place] [address] Scanning, Provider Social History Tobacco Use Types [...] and Family Once a week 03/05/2019 Attends [employer] Services Not on file 03/05 Active Member [...] file 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SHIPPING Gender Identity Female 10/09/2022 9:08 AM CDT Sexual Orientation Choose not to disclose 2022 9:08 AM CDT documented as of this encounter Plan of Treatment Not on file documented as of this encounter Procedures Procedure Name Priority Date/Time Associated Diagnosis Comments PULMONARY - RESULT SCAN 02/21/2017 3:51 PM SUPERVISOR SHIPPING documented in this encounter Results * PULMONARY - RESULT SCAN (02/21/2017 3:51 PM SUPERVISOR SHIPPING) Anatomical Region Laterality Modality Other us Provider Scanning Final Result documented in this encounter Visit Diagnoses Not on filedocumented in this encounter Care Teams Pattern Illustrator Relationship Specialty Start Date End Date Rnoald Castrejon MD PCP - General 06/21/16 07/17/22 Reynaldo Flannery DO Consulting Physician Cardiology 09/26/17 Guanakito Holland MD Consulting Physician Cardiovascular Disease 07/29/18 Jaclyn Eid RN [address] [place], [place] [id number] Architecture Analyst 07/31/18 11/29/18 Annel Curiel, BRAYAN [address] [place], [place] [id number] Architecture Analyst 11/18/18 05/16/19 documented as of this encounter
--- OUTSIDE RECORDS SUMMARY | 2024-04-11 06:40 | XMS_ITS | Encounter Summary ---
Author Organization [facility] Healthcare Address [address] [place] [address] Care Team Providers Care Timber Supervisor Name Role Phone Ronald Castrejon MD Primary Care Provider [phone] Encounter Details Date Type Department Care Team (Late st Contact Info) Description 01/07/2017 7:10 PM CDT - 01/07/2017 11:59 PM CDT Hospital Encounter [facility] Ronald Castrejon MD [address] [place] [id number] Discharge Disposition: Discharge to home or self care Social History Tobacco Use Types Packs/Day Years Used Date Smoking Tobacco: Former Cigarettes Q uit: 03/24/1969 Alcohol Use Standard Drinks/Week Comments No 0 (1 standard drink = 0.6 oz pur e alcohol) Comments Unknown Sex and Gender Information Value Date Recorded Sex Assigned at Not on file Legal Sex Female 11:18 AM YARDING ENGINEER Gender Identity Female 10/09/2022 9:08 AM CDT Sexual Orientation Choose not to disclose 2022 9:08 AM CDT documented as of this encounter Medications at Time of Discharge cholecalciferol (VITAMIN D-3) 2,000 unit tabletIndication s:Prevention of Vitamin D Deficiency take 1 tablet by oral route every day 90 3 12/06/2015 ALPRAZolam (XANAX) 0.5 mg tablet 10/10/2016 8 apixaban (ELIQUIS) 5 mg tablet take 1 tablet by oral route 2 times every day 0 0 01/24/2016 3 aspirin (ASPIR-81) 81 mg tablet take 1 tablet by oral route every day 0 0 06/06/2015 7 fluticasone (FLONASE) 50 mcg/actuation nasal spray inhale 2 spray by Intranasal route every day in each nostril 1 Bottle 11 09/08/2015 8 lansoprazole (PREVACID) 15 mg capsule Take 15 mg by mouth daily. 9 documented as of this encounter Discharge Disposition Disposition Code Departure Means Destination Discharge to home or self care documented in this encounter Plan of Treatment Not on file documented as of this encounter Procedures Procedure Name Priority Date/Time Associated Diagnosis Comments PSG (SIMPLE) Routine 01/07/2017 5:00 AM CDT documented in this encounter Results * PSG (SIMPLE) (01/07/2017 5:00 AM CDT) 01/07/2017 5:00 AM CDT [facility] - 01/07/2017 5:00 AM CDT ?SLEEP DISORDER REPORT Patient: ??ABENA HALL ? Service Date: 01/07/2017 Account: ??[id number] ? Room No: : ?1940 ? Patient Type: ?ANC Attend.: ??Ronald Castrejon M.D. ?Admit Date: ??01/07/2017 Dict.: ?Agnes Lara M.D., D.MDarvin ?Disch. Date: 01/07/2017 ?COMPREHENSIVE POLYSOMNOGRAM REQUESTING PHYSICIAN Dr. Ronald Castrejon. INDICATION STUDY Ms. Hall is a 76-year-old with chief complaints of snoring, unrefreshing sleep, and daytime fatigue. PAST MEDICAL HISTORY Hypertension, heart attack, and atrial fibrillation. VITALS age: ??76 years. ??Height: ??61 inches. ??Weight: ??162 pounds. ??Body mass index: 31.0. PROCEDURE Patient underwent an overnight polysomnography to include EEG, sleep stage recording, cardiorespiratory monitoring, as well as videotaping. DESCRIPTION OF POLYSOMNOGRAPHY FINDINGS Patient's total time in bed was 416.5 minutes. ??Total sleep time was 259 minutes. ??Sleep efficiency was 62.2%. Latency lights out to stage N1 was 17.1 minutes,latency to stage N2 from sleep onset was 8 minutes, to stage N3 from sleep onset was 57.5 minutes and latency stage REM from sleep onset was 88 minutes. ??Sleep stage recording stage awake of 158 minutes. ??Stage non-REM comprised 233.5 minute (90.2% of total sleep time). ??This included stage N1 of 43.5 minute with negative 16.8% total sleep time, stage N2 of 157 minutes (60.6% of total sleep time) and stage N3 of 33 minutes with negative 12.7% total sleep time. ??Stage REM comprised 25.5 minute with negative 9.8% of total sleep time. Arousal analysis revealed a total of 261 arousals. ??Arousal index was 60.5. There were 100 spontaneous arousals. ??The spontaneous arousal index was 23.2. The apnea- hypopnea index with AHI was 45.8. ??The AHI was 16.9 in supine position, and 10.5 in the nonsupine position. ??REM sleep revealed an apnea-hypopnea index of 37.6. ??Twenty-eight obstructive apneas, 3 central apneas, and 42 hypopneas were recorded. ??Baseline oxygen saturation 95.2%. Lowest oxygen saturation was 87%. ??There were a total of 70 oxygen desaturation episodes. ??Snoring was described as continuous and loud. Limb movement recording did not reveal any periodic limb movements. ??Average heart rate during wake was 53.2 and during sleep was 53.4. ??The heart rhythm was sinus bradycardia. IMPRESSION The above polysomnography confirms evidence of: 1. ??Reduction of sleep efficiency. 2. ??Loud and continuous snoring. 3. ??Overall moderate obstructive sleep apnea with an AHI was 16.9. ?This was severe in the supine position and in the REM sleep. 4. ??Given the patient's severity, positive pressure therapy is recommended. [place] A: ??Obstructive sleep apnea syndrome G47.33 [place] B: ??Polysomnography [id number] Electronically Authenticated and Edited by: Agnes Lara MD On 01/12/2017 02:19 PM CDT Agnes Lara M.D., D.M. SUMMER/madi Job #: ??[id number] DD: ??01/10/2017 10:36 TD: ??01/11/2017 10:45 us Not In File Miscellaneous SLEEP CENTER ORDERABLE S Final Result Performing Organization Address City/State/[facility] Phone Number [facility] documented in this encounter Visit Diagnoses Not on filedocumented in this encounter Care Teams Timber Supervisor Relationship Specialty Start Date End Date Ronald Castrejon MD PCP - General 06/21/16 07/17/22 documented as of this encounter
--- OUTSIDE RECORDS SUMMARY | 2024-04-11 06:40 | XMS_ITS | Encounter Summary ---
Author Organization [facility] Medical [facility] Address [address] [place] [address] Care Team Providers Care Market Development Trainer Name Role Phone Ronald Castrejon MD Primary Care Provider [phone] Reynaldo Flannery DO Unavailable [phone] Guanakito Holland MD Unavailable [phone] Jaclyn Eid RN Unavailable [phone] Annel Curiel RN Unavailable [phone] Encounter Details Date Type Department Care Team (Late st Contact Info) Description 06/18/2017 Orders Only [facility] [place] [facility] Information Management [address] [place] [address] Scanning, Provider Social History Tobacco Use Types [...] and Family Once a week 03/05/2019 Attends Buddhism Services Not on file 03/05 Active Member [...] on file Legal Sex Female 11:18 AM MARKING DEVICES ASSEMBLER Gender Identity Female 10/09/2022 9:08 AM CDT Sexual Orientation Choose not to disclose 2022 9:08 AM CDT documented as of this encounter Plan of Treatment Not on file documented as of this encounter Procedures Procedure Name Priority Date/Time Associated Diagnosis Comments SCAN - RADIOLOGY/IMAGING 06/18/2017 11:50 AM CDT documented in this encounter Results * SCAN - RADIOLOGY/IMAGING (06/18/2017 11:50 AM CDT) Anatomical Region Laterality Modality Other us Provider Scanning Final Result documented in this encounter Visit Diagnoses Not on filedocumented in this encounter Care Teams Market Development Trainer Relationship Specialty Start Date End Date Ronald Castrejon MD PCP - General 06/21/16 07/17/22 Reynaldo Flannery DO Consulting Physician Cardiology 09/26/17 Guanakito Holland MD Consulting Physician Cardiovascular Disease 07/29/18 Jaclyn Eid RN [address] [place], [place] [id number] Whittling Room Operator 07/31/18 11/29/18 Annel Curiel, BRAYAN [address] [place], [place] [id number] Whittling Room Operator 11/18/18 05/16/19 documented as of this encounter
--- OUTSIDE RECORDS SUMMARY | 2024-04-11 06:40 | XMS_ITS | Encounter Summary ---
Author Organization [facility] Address [address] [place] [address] Care Team Providers Care Scheduling Agent Name Role Phone Ronald Castrejon MD Primary Care Provider Reason for Visit * Reason Comments Abdominal Pain GERD Encounter Details Date Type Department Care Team (Late st Contact Info) Description 09/25/2017 3:47 AM CDT - 09/25/2017 10:33 AM CDT Emergency [facility] Emergency Department [address] [place] [address] Frederick Camacho, DO [address] [place] [address] Beth Mancilla MD [address] [place] [id number] Atrial fibrillation with rapid ventricular response (CMS/HCC) (Primary Dx) Discharge Disposition: Discharge to a critical access hospital Social History Tobacco Use Types Packs/Day Years Used Date Smoking Tobacco: Former Smokeless Tobacco: Never Alcohol Use Standard Drinks/Week Comments No 0 (1 standard drink = 0.6 oz pur e alcohol) Comments Unknown Sex and Gender Information Value Date Recorded Sex Assigned at Not on file 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 Gender Identity Female 10/09/2022 9:08 AM CDT Sexual Orientation Choose not to disclose 2022 9:08 AM CDT documented as of this encounter Last Filed Vital Signs Vital Sign Reading Time Taken Comments Blood Pressure 102/82 09/25/2017 9:15 AM CDT Pulse 146 09/25/2017 9:15 AM CDT Temperature 36.8 ??C (98.3 ??F) 09/25/2017 4:06 AM CD T Respiratory Rate 16 09/25/2017 9:15 AM CDT Oxygen Saturation 98% 09/25/2017 9:15 AM CDT Inhaled Oxygen Concentration - - [...] times every day 0 0 01/24/2016 3 digestive enzymes tablet Take by mouth [...] Disposition Code Departure Means Destination Discharge to a critical access hospital Other documented in this encounter ED Notes * Perry Farias RN - 09/25/2017 4:11 AM CDT Pt reports hx of GERD, pt says scratchy throat and sore upper esophagus. Perry Farias RN 09/25/17 0413 * Frederick Camacho, DO - 09/25/2017 4:02 AM CDTAssociated Order(s): ECG 12-LEAD HPI Chief Complaint Patient presents with ??? Abdominal Pain ??? GERD (provider at bedside: 3:59 AM 09/25/2017 Abena is a 77 y/o F former smoker with a hx of GERD, A-Fib, hyperlipidemia, and HTN who presents tot ED for evaluation of worsening epigastric pain that extends through her mid-sternum starting last night. Pt reports a hx of acid reflux and believes her pain is similar but more severe. No alleviating factors noted. She denies nausea, vomiting, or SOB. Pt does confirms hx of A-fib and is following by Dr. Fitzpatrick as well as Dr. Camarena who has her on a monitor at this time. History provided by: Patient best second jobs used: No Patient History Patient Active Problem List Diagnosis Date Noted ??? Abdominal aortic aneurysm (AAA) without rupture (CMS/HCC) 06/25/2017 ??? Anxiety 03/12/2017 ??? Coronary artery disease involving nisqually coronary artery of nisqually heart without angina pectoris 12/25/2016 ??? Paroxysmal atrial fibrillation (CMS/HCC) 12/25/2016 ??? Chronic GERD 12/25/2016 ??? Hypertension 01/28/2013 Class: Chronic ??? Hyperlipidemia 01/28/2013 Class: Chronic ??? Osteoarthritis 01/20/2013 Class: Chronic Past Medical History: Diagnosis Date ??? Adiposity obesity ??? Gastroesophageal reflux disease GERD ??? HX OTHER MEDICAL Depression, with Anxiety [...] Depression; ??? Hypertension Brother Hypertension; Social History Substance Use Topics ??? Smoking status: Former Smoker ??? Smokeless tobacco: Never Used ??? Alcohol use No Social History Social History Narrative Agrees to blood/blood products: Y Agrees to blood/blood products: Y Review of Systems Review of Systems Constitutional: Negative for chills, fatigue and fever. HENT: Negative for congestion, ear pain, rhinorrhea, sneezing and sore throat. Respiratory: Negative for cough, shortness of breath and wheezing. Cardiovascular: Positive for chest pain (mid-sternal). Negative for palpitations. Gastrointestinal: Positive for abdominal pain (epigastric ). Negative for constipation, diarrhea, nausea and vomiting. Genitourinary: Negative for dysuria and frequency. Musculoskeletal: Negative for arthralgias, back pain, myalgias and neck pain. Skin: Negative for color change, pallor, rash and wound. Neurological: Negative for dizziness, syncope, weakness, light-headedness and headaches. All other systems reviewed and are negative. Physical Exam ED Triage Vitals Temp Pulse Resp BP SpO2 -- -- -- -- -- Temp src Heart Rate Source Patient Position BP Location FiO2 (%) -- -- -- -- -- Physical Exam Constitutional: She is oriented to person, place, and time. She appears well- developed and well-nourished. No distress. HENT: Head: Normocephalic and atraumatic. Mouth/Throat: Oropharynx is clear and moist. Eyes: Conjunctivae and EOM are normal. Neck: Normal range of motion. Neck supple. Cardiovascular: Normal heart sounds and intact distal pulses. An irregularly irregular rhythm present. Tachycardia present. Exam reveals no gallop and no friction rub. No murmur heard. Pulmonary/Chest: Effort normal and breath sounds normal. No respiratory distress. She has no wheezes. She has no rales. Abdominal: Soft. She exhibits no distension. There is no tenderness. Musculoskeletal: Normal range of motion. She exhibits no edema, tenderness or deformity. Neurological: She is alert and oriented to person, place, and time. Skin: Skin is warm and dry. Capillary refill takes less than 2 seconds. No rash noted. No erythema.No pallor. Psychiatric: She has a normal mood and affect. Her behavior is normal. Nursing note and vitals reviewed. MDM MDM Number of Diagnoses or Management Options Amount and/or Complexity of Data Reviewed Clinical lab tests: reviewed and ordered Tests in the radiology section of CPT??: reviewed and ordered Tests in the medicine section of CPT??: reviewed and ordered Review and summarize past medical records: yes Independent visualization of images, tracings, or specimens: yes Risk of Complications, Morbidity, and/or Mortality Presenting problems: high Diagnostic procedures: high Management options: high Patient Progress Patient progress: stable Labs Reviewed CBC WITH AUTO DIFFERENTIAL COMPREHENSIVE METABOLIC PANEL LIPASE TROPONIN T PROTIME-INR APTT XR Chest 1 Vw Portable (Results Pending) SpO2 99% ECG 12 lead Date/Time: 09/25/2017 4:05 AM Performed by: FREDERICK CAMACHO Authorized by: FREDERICK CAMACHO Rate: ECG rate: 144 Rhythm: Rhythm: atrial fibrillation Comments: Johny with RVR ED Course as of Sep 29 248 Time: 09/25 453 Comment: Discussed need for admission for further observation and to control heart rate. Pt states she does not really want to be admitted at this time. She will think about whether she is willing dario admitted or sign out AMA. By: Vielka Drew Time: 07/05 0520 Comment: Per Nurse, pt is willing to be admitted at this time. She prefers to be transferred to [facility]. By: Vielka Drew Time: 09/25 528 Comment: Discussed pt's case with Jennie Quintana, FIBRE TECHNOLOGIST for Dr. Camarena (bag patcher), who agrees to have their group consult pt upon admission. Call placed to hospitalist By: Vielka Drew Time: 09/26 535 Comment: Discussed pt's case with Dr. Maya, [facility] Hospitalist, who agrees to accept pt for admission to their facility By: Vielka Drew Time: 09/25 545 Comment: Pt refuses to take cardiozem, digoxin, or beta blockers but is willing to take ativan at this time. By: Vielka Drew No diagnosis found. I, Frederick Camacho DO , have personally performed the services described in the documentation , reviewed the documentation, as recorded by the scribe in my presence, and it accurately and completely records my words and actions. I, Vielka Drew, am scribing for and in the presence of Dr. Frederick Camacho. I electronically signedthis document at 4:04 AM on 09/25/17 Frederick Camacho DO 09/29/17 0250 * Perry Farias RN - 09/25/2017 4:01 AM CDT Pt presents to ED with report of sore throat/neck pain and upper abdominal pain. Pt states hx of acid reflux. Pt ST on monitor with hx of afib. documented in this encounter Plan of Treatment Not on file documented as of this encounter Procedures Procedure Name Priority Date/Time Associated Diagnosis Comments EGFR STAT 09/25/2017 4:23 AM CDT DIFFERENTIAL AUTO STAT 09/25/2017 4:2 3 AM CDT CBC WITH AUTO DIFFERENTIAL STAT 09/25/2017 4:23 AM CDT APTT STAT 09/25/2017 4:23 AM CDT PROTIME-INR STAT 09/25/2017 4:23 AM CDT TROPONIN T STAT 09/25/2017 4:23 AM CDT LIPASE STAT 09/25/2017 4:23 AM CDT COMPREHENSIVE METABOLIC PANEL STAT 09/25/2017 4:23 AM CDT XR CHEST 1 VIEW ED 09/25/2017 4:14 AM CDT ECG 12-LEAD STAT 09/25/2017 3:55 AM CDT documented in this encounter Results * eGFR (09/25/2017 4:23 AM CDT) eGFR >60 mL/min/1.7 3 m2 [facility] ([facility]) Comment: Interpretive Data Reference Interval Normal ?>/= 90 mL/min/1.73m2 Mildly decreased* ? 60 - 89 mL/min/1.73m2 Mildly to moderately decreased ?45 - 59 mL/min/1.73m2 Moderately to severely decreased ??30 - 44 mL/min/1.73m2 Severely decreased ?15 - 29 mL/min/1.73m2 Kidney Failure ?< 15 ??mL/min/1.73m2 *Relative to young adult level If -Montserratian multiply value by 1.16. Estimated glomerular filtration [...] was last reviewed 2015. Blood specimen (specimen) 09/25/2017 4:23 AM CDT 09/25/2017 4:27 AM CDT Narrative [facility] ([facility]) - 09/25/2017 4:49 AM CDT us Frederick Camacho DO LAB BLOOD ORDERABLES Final Result [facility] ([place]) 1 [facility] Department [place] [address] * (ABNORMAL) Differential, auto (09/25/2017 4:23 AM CDT) Neutrophil abs 8.0(H) 1.7 - 6.5 K/cumm [facility] ([facility]) Imm gran abs 0.1 0.0 - 0.1 K/cumm [facility] ([facility]) Lymphocyte abs 2.9 0.8 - 3.3 K/cumm [facility] ([facility]) Monocyte abs 0.9(H) 0.2 - 0.8 K/cumm [facility] ([facility]) Eosinophil abs 0.1 0.0 - 0.5 K/cumm [facility] ([facility]) Basophil abs 0.1 0.0 - 0.1 K/cumm [facility] ([facility]) Neutrophil pct 66.6 % [facility] ([facility]) Comment: Interpretive [...] was last revised on 2017. Lymphocyte pct 24.2 % [facility] ([facility]) Comment: Interpretive Data Percent cell count reference ranges are not reported, since discordance with absolute values may lead to misinterpretation of CBC data. Current Interpretive Data was last revised on 2017. Monocyte pct 7.3 % [facility] ([facility]) Comment: Interpretive Data Percent cell count reference ranges are not reported, since discordance with absolute values may lead to misinterpretation of CBC data. Current Interpretive Data was last revised on 2017. Eosinophil pct 0.9 % [facility] ([facility]) Comment: Interpretive [...] last revised on 2017. Blood specimen (specimen) 09/25/2017 4:23 AM CDT 09/25/2017 4:27 AM CDT Narrative [facility] ([facility]) - 09/25/2017 4:30 AM CDT us Frederick Camacho DO LAB BLOOD ORDERABLES Final Result [facility] ([facility]) 1 [facility] Department [place] [address] * aPTT (09/25/2017 4:23 AM CDT) aPTT 27.1 25.0 - 37.0 sec [facility] ([facility]) Blood specimen (specimen) 09/25/2017 4:23 AM CDT 09/25/2017 4:27 AM CDT Narrative [facility] ([facility]) - 09/25/2017 4:43 AM CDT Frederick Camacho DO LAB BLOOD ORDERABLES Final Result Performing Organization Address City/[facility] Co de Phone Number [facility] ([place]) 1 [facility] [place] [address] * Protime-INR (09/25/2017 4:23 AM CDT) PT 11.5 9.5 - 13.0 sec [facility] ([place]) INR 1.02 0.90 - 1.20 [facility] ([place]) Comment: Interpretive Data Recommended ranges for Protime INR: 2.0 - 3.0 Most indications for Warfarin therapy (e.g. Treatment of DVT, PE, bioprosthetic valve replacement, prophylaxis venous thrombosis, atrial fibrillation). 2.5 - 3.5 Mechanical mitral valve or dual mechanical mitral and Aortic valve replacement. Current Interpretive Data was last revised on 2014. Blood specimen (specimen) 09/25/2017 4:23 AM CDT 09/25/2017 4:27 AM CDT Narrative [facility] ([facility]) - 09/25/2017 4:43 AM CDT Frederick Camacho DO LAB BLOOD ORDERABLES Final Result Performing Organization Address City/[facility] Co de Phone Number [facility] ([place]) 1 [facility] [place] [address] * Troponin T (09/25/2017 4:23 AM CDT) Troponin T <0.01 0.00 - 0.06 ng/mL [facility] ([place]) Comment: Interpretive Data Troponin table: ? Negative ? 0.00-0.06 ng/ml ? Indeterminate ?0.07-0.10 ng/ml ? Consistent with Myocardial Injury ?Greater than 0.10 ng/ml ?? Current interpretive data was last revised on 2014 Blood specimen (specimen) 09/25/2017 4:23 AM CDT 09/25/2017 4:27 AM CDT Narrative [facility] ([facility]) - 09/25/2017 4:49 AM CDT Frederick Camacho DO LAB BLOOD ORDERABLES Final Result Performing Organization Address [facility] Co de Phone Number [facility] ([facility]) 1 [facility] [place] [address] * Lipase (09/25/2017 4:23 AM CDT) Lipase 49 10 - 99 Units/L [facility] ([facility]) Blood specimen (specimen) 09/25/2017 4:23 AM CDT 09/25/2017 4:27 AM CDT Narrative [facility] ([facility]) - 09/25/2017 4:49 AM CDT Frederick Camacho DO LAB BLOOD ORDERABLES Final Result Performing Organization Address [facility] Co de Phone Number [facility] ([facility]) 1 [facility] [place] [address] * Comprehensive metabolic panel (09/25/2017 4:23 AM CDT) Sodium 139 135 - 145 mmol/L [facility] ([facility]) Potassium, pl 4.2 3.3 - 4.9 mmol/L [facility] ([facility]) Chloride 100 97 - 110 mmol/L [facility] ([facility]) CO2 24 22 - 32 mmol/L [facility] ([facility]) Anion gap 15 2 - 15 mmol/L [facility] ([facility]) BUN 14 8 - 25 mg/dL [facility] ([facility]) Creatinine 0.61 0.60 - 1.10 mg/dL [facility] ([facility]) Glucose 153 70 - 199 mg/dL [facility] ([facility]) [...] interpretive data was last revised 2017. Calcium 9.8 8.5 - 10.3 mg/dL [facility] Bilirubin, total 0.4 0.1 - 1.2 mg/dL [facility] Protein, pl 7.6 6.5 - 8.5 g/dL [facility] ([facility]) Albumin 4.2 3.5 - 5.0 g/dL [facility] ([facility]) Alk phos 58 40 - 130 Units/L [facility] ([facility]) ALT 17 7 - 45 Units/L [facility] ([facility]) AST 19 10 - 45 Units/L [facility] ([facility]) Blood specimen (specimen) 09/25/2017 4:23 AM CDT 09/25/2017 4:27 AM CDT Narrative [facility] - 09/25/2017 4:49 AM CDT us Frederick Camacho DO LAB BLOOD ORDERABLES Final Result [facility] ([facility]) 1 [facility] Department [place] [address] * (ABNORMAL) CBC with auto differential (09/25/2017 4:23 AM CDT) WBC 12.0(H) 3.8 - 9.9 K/cumm [facility] ([facility]) RBC 4.95 3.90 - 5.20 M/cumm [facility] ([facility]) Hgb 15.2 11.9 - 15.5 g/dL [facility] ([facility]) Hct 44.4 35.6 - 45.5 % [facility] ([facility]) MCV 89.7 81.3 - 96.4 fL [facility] ([facility]) MCH 30.7 27.1 - 33.3 pg [facility] ([facility]) MCHC 34.2 32.3 - 35.7 g/dL [facility] ([facility]) RDW CV 12.4 11.1 - 14.9 % [facility] ([facility]) RDW SD 40.1 35.7 - 48.1 fL [facility] ([facility]) Plt 255 150 - 400 K/cumm [facility] ([facility]) MPV 10.7 9.1 - 12.3 fL [facility] ([facility]) NRBC abs 0.00 0.00 - 0.01 K/cumm [facility] ([facility]) Blood specimen (specimen) 09/25/2017 4:23 AM CDT 09/25/2017 4:27 AM CDT Narrative [facility] ([facility]) - 09/25/2017 4:30 AM CDT us Frederick Camacho DO LAB BLOOD ORDERABLES Final Result [facility] ([facility]) 1 [facility] Department [place] [address] * XR Chest 1 Vw Portable (09/25/2017 4:14 AM CDT) Anatomical Region Laterality Modality Body, Chest N/A Computed Radiogr aphy 09/25/2017 8:21 AM CDT Impressions 09/25/2017 8:22 AM CDT NO ACTIVE CARDIOPULMONARY DISEASE. Electronically signed by: Daniel Crawford M.D. Narrative 09/25/2017 8:22 AM CDT XR CHEST 1 VIEW HISTORY: Dyspnea. ??Cough and sore throat. COMPARISON: 05/16/2017 FINDINGS: One view of the chest obtained at 04:10 hrs demonstrates clear lungs bilaterally with no focal infiltrates. ??The heart size and pulmonary vascularity are normal. Procedure Note Daniel Crawford MD - 09/25/2017 XR CHEST 1 VIEW HISTORY: Dyspnea. Cough and sore throat. COMPARISON: 05/16/2017 FINDINGS: One view of the chest obtained at 04:10 hrs demonstrates clear lungs bilaterally with no focal infiltrates. The heart size and pulmonary vascularity are normal. IMPRESSION: NO ACTIVE CARDIOPULMONARY DISEASE. Electronically signed by: Daniel Crawford M.D. us Frederick Camacho DO IMG XR PROCEDURES Final Res ult * ECG 12 lead (09/25/2017 3:55 AM CDT) Patient age 77 years [facility] Interpretation Text ATRIAL FIBRILLATION WITH RAPID VENTRICULAR RESPONSENONSPECIFIC ST & T-WAVE ABNORMALITYABNORMAL RHYTHM ECGPREVIOUS TRACIN05/16/2017 15.54 [facility] ED Comment:Physician Interprete r Dr. Julio Kumar M.D. Ventricular Rate EKG/Min 144 /min [facility] P Wave Duration ms [facility] QRS-Interval (MSEC) 83 ms [facility] [place]-Interval (MSEC) ms [facility] QT Interval 287 ms [facility] QTc 434 ms [facility] QTC Interval ms [facility] P [place] deg [facility] QRS [place] 10 deg [facility] T [place] 31 deg [facility] ED 09/25/2017 3:55 AM CDT Narrative Procedure Note Frederick Camacho DO - 09/25/2017 4:02 AM CDT HPI Chief Complaint Patient presents with ? ? Abdominal Pain ? ? GERD (provider at bedside: 3:59 AM 09/25/2017 Abena is a 77 y/o F former smoker with a hx of GERD, A-Fib,hyperlipidemia, and HTN who presents to the ED for evaluation of worseningepigastric pain that extends through her mid-sternum starting last night.Pt reports a hx of acid reflux and believes her pain is similar but moresevere. No alleviating factors noted. She denies nausea, vomiting, or SOB.Pt does confirms hx of A-fib and is following by Dr. Fitzpatrick as well as who has her on a monitor at this time. History provided by: Patient best second jobs used: No Patient History Patient Active Problem List Diagnosis Date Noted ? ? Abdominal aortic aneurysm (AAA) without rupture ([facility]) 06/25/2017 ? ? Anxiety 03/12/2017 ? ? Coronary artery disease involving nisqually coronary artery of nisqually heartwithout angina pectoris 12/25/2016 ? ? Paroxysmal atrial fibrillation ([facility]) 12/25/2016 ? ? Chronic GERD 12/25/2016 ? ? Hypertension 01/28/2013 Class: Chronic ? ? Hyperlipidemia 01/28/2013 Class: Chronic ? ? Osteoarthritis 01/20/2013 Class: Chronic Past Medical History: Diagnosis Date ? ? Adiposity obesity ? ? Gastroesophageal reflux disease GERD ? ? HX OTHER MEDICAL Depression, with Anxiety ? ? HX OTHER MEDICAL DJD ? ? HX OTHER MEDICAL a.fib ? ? HX OTHER MEDICAL Atrial Fibrillation; Outcome: heart ablation ? ? Hyperlipidemia Hyperlipidemia ? ? Hypertension Hypertension Past Surgical History: Procedure Laterality Date ? ? CHOLECYSTECTOMY 1981 Cholecystectomy ? ? OTHER SURGICAL HISTORY Right 1980 partial oopherectomy ? ? OTHER SURGICAL HISTORY heart cath with stent 2013 [place] ? ? OTHER SURGICAL HISTORY 2015 a.fib: loop recorder implanted ? ? OTHER SURGICAL HISTORY 2015 Atrial Fibrillation: Cardiovascular Intervention Family History Problem Relation Age of Onset ? ? Other Mother Angina; Cause of : Angina ? ? Dementia Mother Dementia; ? ? Depression Mother Depression; ? ? COPD Father COPD; Cause of : COPD ? ? Dementia Father Dementia; ? ? Depression Father Depression; ? ? Other Sister 75 DM, CAD; ? ? Other Sister Valve Replacement; ? ? Cancer Brother Cancer; ? ? Depression Brother Depression; ? ? Hypertension Brother Hypertension; Social History Substance Use Topics ? ? Smoking status: Former Smoker ? ? Smokeless tobacco: Never Used ? ? Alcohol use No Social History Social History Narrative Agrees to blood/blood products: Y Agrees to blood/blood products: Y Review of Systems Review of Systems Constitutional: Negative for chills, fatigue and fever. HENT: Negative for congestion, ear pain, rhinorrhea, sneezing and sorethroat. Respiratory: Negative for cough, shortness of breath and wheezing. Cardiovascular: Positive for chest pain (mid-sternal). Negative forpalpitations. Gastrointestinal: Positive for abdominal pain (epigastric ). Negative forconstipation, diarrhea, nausea and vomiting. Genitourinary: Negative for dysuria and frequency. Musculoskeletal: Negative for arthralgias, back pain, myalgias and neckpain. Skin: Negative for color change, pallor, rash and wound. Neurological: Negative for dizziness, syncope, weakness, light-headednessand headaches. All other systems reviewed and are negative. Physical Exam ED Triage Vitals Temp Pulse Resp BP SpO2 -- -- -- -- -- Temp src Heart Rate Source Patient Position BP Location FiO2 (%) -- -- -- -- -- Physical Exam Constitutional: She is oriented to person, place, and time. She appearswell- developed and well-nourished. No distress. HENT: Head: Normocephalic and atraumatic. Mouth/Throat: Oropharynx is clear and moist. Eyes: Conjunctivae and EOM are normal. Neck: Normal range of motion. Neck supple. Cardiovascular: Normal heart sounds and intact distal pulses. Anirregularly irregular rhythm present. Tachycardia present. Exam revealsno gallop and no friction rub. No murmur heard. Pulmonary/Chest: Effort normal and breath sounds normal. No respiratorydistress. She has no wheezes. She has no rales. Abdominal: Soft. She exhibits no distension. There is no tenderness. Musculoskeletal: Normal range of motion. She exhibits no edema, tendernessor deformity. Neurological: She is alert and oriented to person, place, and time. Skin: Skin is warm and dry. Capillary refill takes less than 2 seconds. [place] noted. No erythema. No pallor. Psychiatric: She has a normal mood and affect. Her behavior is normal. Nursing note and vitals reviewed. MDM MDM Number of Diagnoses or Management Options Amount and/or Complexity of Data Reviewed Clinical lab tests: reviewed and ordered Tests in the radiology section of CPT??: reviewed and ordered Tests in the medicine section of CPT??: reviewed and ordered Review and summarize past medical records: yes Independent visualization of images, tracings, or specimens: yes Risk of Complications, Morbidity, and/or Mortality Presenting problems: high Diagnostic procedures: high Management options: high Patient Progress Patient progress: stable Labs Reviewed CBC WITH AUTO DIFFERENTIAL COMPREHENSIVE METABOLIC PANEL LIPASE TROPONIN T PROTIME-INR APTT XR Chest 1 Vw Portable (Results Pending) SpO2 99% ECG 12 lead Date/Time: 09/25/2017 4:05 AM Performed by: FREDERICK CAMACHO Authorized by: FREDERICK CAMACHO Rate: ECG rate: 144 Rhythm: Rhythm: atrial fibrillation Comments: Marlena-Christopher with RVR ED Course as of Sep 29 248 Time: 09/25 453 Comment: Discussed need for admission for further observation and tocontrol heart rate. Pt states she does not really want to be admitted atthis time. She will [facility] By: Vielka Drew Time: 09/26 519 Comment: Per Nurse, pt is willing to be admitted at this time. She prefersto [facility] to [facility]. By: Vielka Drew Time: 09/25 528 Comment: Discussed pt's case with Jennie Quintana FIBRE TECHNOLOGIST for Dr. Camarena(bag patcher), who agrees to have their group consult pt upon admission.Call placed to hospitalist By: Vielka Drew Time: 09/26 535 Comment: Discussed pt's case with Dr. Maya, [facility], who agrees to accept pt for admission to their facility By: Vielka Drew Time: 09/25 545 Comment: Pt refuses to take cardiozem, digoxin, or beta blockers but iswilling to take ativan at this time. By: Vielka Drew No diagnosis found. I, Frederick Camacho, DO , have personally performed the services described in the documentation ,reviewed the documentation, as recorded by the scribe in my presence, andit accurately and completely records my words and actions. I, Vielka Drew, am scribing for and in the presence of Dr. Tijerina. I electronically signed this document at 4:04 AM on 09/25/17 Frederick Camacho DO 09/29/17 0250 Frederick Camacho DO ECG ORDERABLES Final Resul t [facility] documented in this encounter Visit Diagnoses Diagnosis Atrial fibrillation with rapid ventricular response (CMS/HCC) (HCC)- Primary documented in this encounter Administered Medications Inactive Administered Medications - up to 3 most recent administrations Medication Order MAR Action Action Date Dose Rate Site al & mag hydroxide simethicone-lidocaine oral suspension mixture 40 mL, oral, Once, On [place] 09/25/17 at 0403, For 1 dose Given 09/25/2017 4:21 AM CDT 40 mL dilTIAZem (CARDIZEM) 125 mg in sodium chloride 0.9% 125 mL (1 mg/mL) infusion 1-15 mg/hr (1-15 mL/hr), 1 mg/mL, intravenous, Titrated, Starting on Pay[place] 09/25/17 at 0444, Until [place] 09/25/17 at 1125, Initial rate: 5 mg/hr, Titrate: Up/Down, Titrate by: 2.5 mg/hr, Every: 15 minutes, Goal: HR, HR Goal: 60-90 bpm, Routine dilTIAZem (CARDIZEM) injection 20 mg 20 mg, intravenous, Once, On [place] 09/25/17 at 0403, For 1 dose Given 09/25/2017 4:24 AM CDT 20 mg LORazepam (ATIVAN) injection 1 mg 1 mg, intravenous, Once, On [place] 09/25/17 at 0545, For 1 dose Given 09/25/2017 5:51 AM CDT 1 mg sodium chloride 0.9% bolus 1,000 mL 1,000 mL, intravenous, at 1,000 mL/hr, Administer over 1 Hours, Once, On [place] 09/25/17 at 0603, For 1 dose New Bag 09/25/2017 6:09 AM CDT 1,000 mL 1000 mL/hr documented in this encounter Historical Medications * This list may reflect changes made after this encounter. cyanocobalamin (Vitamin B-12) 100 mcg tabletIndications :Prevention of Vitamin B12 Deficiency Take 10 tablets (1,000 mcg total) by mouth daily digestive enzymes tablet Take by mouth daily 12/24/2018 added in this encounter Active and Recently Administered Medications Times are shown in CDT. Scheduled Medication Order 09/23/2017 09/24/2017 09/25/2017 al & mag hydroxide simethicone-lidocaine oral suspension mixture (COMPLETED) 40 mL, oral, Once, On [place] 09/25/17 at 0403, For 1 dose 0421 (Given - Provid er: Perry Farias RN) dilTIAZem (CARDIZEM) injection 20 mg (COMPLETED) 20 mg, intravenous, Once, On [place] 09/25/17 at 0403, For 1 dose 0424 (Given - Provid er: Perry Farias RN) LORazepam (ATIVAN) injection 1 mg (COMPLETED) 1 mg, intravenous, Once, On [place] 09/25/17 at 0545, For 1 dose 0551 (Given - Provid er: Perry Farias RN) sodium chloride 0.9% bolus 1,000 mL (COMPLETED) 1,000 mL, intravenous, at 1,000 mL/hr, Administer over 1 Hours, Once, On [place] 09/25/17 at 0603, For 1 dose 0609 (New Bag - Prov ider: Perry Jarrett, RN)0709 (Due: Stopped - Provider: Perry Farias RN)0800 (Stopped - Provider: Kisha Moralez RN) Continuous Medication Order 09/23/2017 09/24/2017 09/25/2017 dilTIAZem (CARDIZEM) 125 mg in sodium chloride 0.9% 125 mL (1 mg/mL) infusion 1-15 mg/hr (1-15 mL/hr), 1 mg/mL, intravenous, Titrated, Starting on [place] 09/25/17 at 0444, Until [place] 09/25/17 at 1125, Initial rate: 5 mg/hr, Titrate: Up/Down, Titrate by: 2.5 mg/hr, Every: 15 minutes, Goal: HR, HR Goal: 60-90 bpm, Routine 0529 (Not Given - Pr ovider: Perry Farias RN - Reason: Patient/family refused) documented in this encounter Orders Medications Ordered That Flaco ht Not Have Been Administered Count Last Ordered Date First Ordered Date dilTIAZem (CARDIZEM) 125 mg in sodium chloride 0.9% 125 mL (1 mg/mL) infusion 1 09/25/2017 Nursing Count Last Ordered Date First Orde red Date CARDIO RESPIRATORY MONITORING 1 09/25/2017 CONTINUOUS PULSE OXIMETRY 1 09/25/2017 IV Count Last Ordered Date First Orde red Date SALINE LOCK IV 1 09/25/2017 documented in this encounter Care Teams Scheduling Agent Relationship Specialty Start Date End Date Ronald Castrejon MD PCP - General 06/21/16 07/17/22 documented as of this encounter
--- OUTSIDE RECORDS SUMMARY | 2024-04-11 06:40 | XMS_ITS | Encounter Summary ---
Author Organization [facility] Healthcare Address [address] [place] [address] Care Team Providers Care Day Care Attendant Name Role Phone Ronald Castrejon MD Primary Care Provider Encounter Details Date Type Department Care Team (Late st Contact Info) Description 11/26/2016 8:05 PM CDT Lab [address] [address] Mixed hyperlipidemia; Unspecified vitamin D deficiency Social History Tobacco Use Types Packs/Day Years Used Date Smoking Tobacco: Former Cigarettes Q uit: 03/24/1969 Alcohol Use Standard Drinks/Week Comments No 0 (1 standard drink = 0.6 oz pur e alcohol) Comments Unknown Sex and Gender Information Value Date Recorded Sex Assigned at Not on file 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 Gender Identity Female 10/09/2022 9:08 AM CDT Sexual Orientation Choose not to disclose 2022 9:08 AM CDT documented as of this encounter Plan of Treatment Not on file documented as of this encounter Procedures Procedure Name Priority Date/Time Associated Diagnosis Comments LIPID PANEL WITH REFLEX TO DIRECT LDL Routine 11/26/2016 10:03 AM CDT Mixed hyperlipidemia VITAMIN D 25 HYDROXY Routine 11/26/2016 10:03 AM CDT Unspecified vitamin D deficiency BASIC METABOLIC PANEL Routine 11/26/2016 10:03 AM CDT Mixed hyperlipidemia documented in this encounter Results * Vitamin D 25 hydroxy (11/26/2016 10:03 AM CDT) Vitamin D 25-OH 51 30 - 80 ng/mL [facility] Blood specimen (specimen) 11/26/2016 10:03 AM CDT 11/26/2016 8:09 PM CDT us Ronald Castrejon MD LAB BLOOD ORDERABLES Final Res ult [facility] [address] [address] Department [place] [address] * (ABNORMAL) Lipid panel with reflex to direct LDL (11/26/2016 10:03 AM CDT) Cholesterol 259(H) 100 - 200 mg/dL [facility] Comment: Interpretive Data Desirable: ?<200 mg/dL Borderline high: ??200-239 mg/dL High: ? >240 mg/dL Current interpretive data was last revised on 2015. Triglycerides 164(H) 10 - 150 mg/dL [facility] Comment: Interpretive Data Desirable: ? < 150 ? mg/dL Borderline High: ? 150 - 199 mg/dL High: ?200 - 499 mg/dL Very High: ? > or = 499 ??mg/dL Current interpretive data was last revised on 2015. HDL 41 40 - 59 mg/dL [facility] Comment: Interpretive Data Less than 40 mg/dL - Low; A major risk factor for heart disease. Greater than or equal to 60 mg/dL - High; ??Considered protective of heart disease. Current interpretive data was last revised on 2015. LDL, calculated 185(H) 60 - 129 mg/dL [facility] Comment: Interpretive Data Optimal: ? < 100 mg/dL Near Optimal: ?100 - 129 mg/dL Borderline High: ?? 130 - 159 mg/dL High: ?> 160 mg/dL Current interpretive data was last revised on 2015. Chol/HDL ratio 6 mg/dL [facility] Blood specimen (specimen) 11/26/2016 10:03 AM CDT 11/26/2016 8:09 PM CDT us Ronald Castrejon MD LAB BLOOD ORDERABLES Final Res ult Performing Organization Address [facility] [place] [address] [place] [address] * Basic metabolic panel (11/26/2016 10:03 AM CDT) Sodium 142 135 - 145 mmol/L [facility] Potassium, pl 4.2 3.5 - 5.1 mmol/L [facility] Chloride 104 100 - 114 mmol/L [facility] CO2 26 22 - 32 mmol/L [facility] BUN 13 8 - 24 mg/dL [facility] Glucose 105 70 - 199 mg/dL [facility] Creatinine 0.83 0.60 - 1.30 mg/dL [facility] Calcium 9.8 8.4 - 10.5 mg/dL [facility] Anion gap 16 8 - 16 mmol/L [facility] Blood specimen (specimen) 11/26/2016 10:03 AM CDT 11/26/2016 8:09 PM CDT us Ronald Castrejon MD LAB BLOOD ORDERABLES Final Res ult Performing Organization Address [facility] Co de Phone Number [place] [phone] [place] [address] documented in this encounter Visit Diagnoses Diagnosis Mixed hyperlipidemia Unspecified vitamin D deficiency documented in this encounter Care Teams Day Care Attendant Relationship Specialty Start Date End Date Ronald Castrejon MD PCP - General 06/21/16 07/17/22 documented as of this encounter
--- OUTSIDE RECORDS SUMMARY | 2024-04-11 06:40 | XMS_ITS | Encounter Summary ---
Author Organization [facility] Address [address] [place] [address] Care Team Providers Care Agriculture Technician Name Role Phone Ronald Castrejon MD Primary Care Provider [phone] Encounter Details Date Type Department Care Team (Late st Contact Info) Description 12/27/2016 Documentation [facility] [place] [facility] 2 [facility] [address] [place] [address] Ronald Castrejon MD [address] [place] [address] [address] [place] [address] Social History Tobacco Use Types Packs/Day Years Used Date Smoking Tobacco: Former Cigarettes Q uit: 03/24/1969 Alcohol Use Standard Drinks/Week Comments No 0 (1 standard drink = 0.6 oz pur e alcohol) Comments Unknown Sex and Gender Information Value Date Recorded Sex Assigned at Not on file Legal Sex Female 11:18 AM 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[employer]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 [employer]OB [employer] Gender Identity Female 10/09/2022 9:08 AM CDT Sexual Orientation Choose not to disclose 2022 9:08 AM CDT documented as of this encounter Progress Notes * Ronald Castrejon MD - 12/27/2016 8:25 AM CDT Patient has cardiac arrhythmias her consumer attorney and investigator internal revenue thinks she may have a sleep disorder so they want to get a sleep study on her will get this scheduled as soon as possible documented in this encounter Plan of Treatment Not on file documented as of this encounter Visit Diagnoses Not on filedocumented in this encounter Care Teams Agriculture Technician Relationship Specialty Start Date End Date Ronald Castrejon MD PCP - General 06/21/16 07/17/22 documented as of this encounter
--- OUTSIDE RECORDS SUMMARY | 2024-04-11 06:40 | XMS_ITS | Encounter Summary ---
Author Organization [facility] Address [address] [place] [address] Care Team Providers Care Tennis Coach Name Role Phone Ronald Castrejon MD Primary Care Provider [phone] Encounter Details Date Type Department Care Team (Late st Contact Info) Description 03/21/2017 Orders Only [place] [facility] 2 [facility] [address] [place] [address] Ronald Castrejon MD [address] [place] [address] [address] [place] [address] Social History Tobacco Use Types Packs/Day Years Used Date Smoking Tobacco: Former Smokeless Tobacco: Never Alcohol Use Standard Drinks/Week Comments No 0 (1 standard drink = 0.6 oz pur e alcohol) Comments Unknown Sex and Gender Information Value Date Recorded Sex Assigned at Not on file 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 6 tablet 03/21/2017 03/26/2017 documented in this encounter Plan of Treatment Not on file documented as of this encounter Visit Diagnoses Not on filedocumented in this encounter Care Teams Tennis Coach Relationship Specialty Start Date End Date Ronald Castrejon MD PCP - General 06/21/16 07/17/22 documented as of this encounter
--- OUTSIDE RECORDS SUMMARY | 2024-04-11 06:40 | XMS_ITS | Encounter Summary ---
Author Organization [facility] Healthcare Address [address] [place] [address] Care Team Providers Care Recreation Assistant Name Role Phone Ronald Castrejon MD Primary Care Provider [phone] Reason for Visit * Reason Comments Weakness - Generalized Encounter Details Date Type Department Care Team (Late st Contact Info) Description 05/16/2017 2:57 PM STEREOTYPER - 05/16/2017 8:02 PM [facility] Emergency [facility] Emergency Department [address] [place] [address] Nikolas Ashford MD [address] [place] [address] Acute cystitis without hematuria (Primary Dx) Discharge Disposition: Discharge to home or self care Social History Tobacco Use Types Packs/Day Years Used Date Smoking Tobacco: Former Smokeless Tobacco: Never Alcohol Use Standard Drinks/Week Comments No 0 (1 standard drink = 0.6 oz pur e alcohol) Comments Unknown Sex and Gender Information Value Date Recorded Sex Assigned at Not on file Legal Sex Female 11:18 AM STEREOTYPER Gender Identity Female 10/09/2022 9:08 AM CDT Sexual Orientation Choose not to disclose 2022 9:08 AM CDT documented as of this encounter Last Filed Vital Signs Vital Sign Reading Time Taken Comments Blood Pressure 118/79 05/16/2017 7:29 PM STEREOTYPER Pulse 62 05/16/2017 7:29 PM STEREOTYPER Temperature 38.2 ??C (100.8 ??F) 05/16/2017 7:[address] Respiratory Rate 16 05/16/2017 7:29 PM STEREOTYPER Oxygen Saturation 99% 05/16/2017 7:29 PM STEREOTYPER Inhaled Oxygen Concentration - - Weight 73 kg (161 lb) 05/16/2017 3:26 PM STEREOTYPER Height 154.9 cm (5' 1 ) 05/16/2017 3:26 PM STEREOTYPER Body Mass Index 30.42 05/16/2017 3:26 PM STEREOTYPER documented in this encounter Discharge Instructions * Attachments The following attachments cannot be sent through Care Everywhere. * Urinary Traction Infection in Older Adults (AfterCare(R) Instructions(ER/ED)) (Mongolian) documented in this encounter Medications at Time of Discharge cholecalciferol (VITAMIN D-3) 2,000 unit tabletIndications :Prevention of Vitamin D Deficiency take 1 tablet by oral route every day 90 3 12/06/2015 nitrofurantoin monohydrate (MACROBID) 100 mg capsule Take 1 capsule (100 mg total) by mouth 2 (two) times a day for 7 days. 14 capsule 05/16/2017 8 ALPRAZolam (XANAX) 0.5 mg tablet 10/10/2016 8 apixaban (ELIQUIS) 5 mg tablet take 1 tablet by oral route 2 times every day 0 0 01/24/2016 3 fluticasone (FLONASE) 50 mcg/actuation nasal spray INHALE 2 SPRAY BY INTRANASAL ROUTE EVERY DAY IN EACH NOSTRIL 16 g 11 04/11/2017 9 lansoprazole (PREVACID) 15 mg capsule Take 15 mg by mouth daily. 9 documented as of this encounter Ordered Prescriptions Prescription Sig Dispense Quantity Refills Last Filled Start Date End Date nitrofurantoin monohydrate (MACROBID) 100 mg capsule Take 1 capsule (100 mg total) by mouth 2 (two) times a day for 7 days. 14 capsule 05/16/2017 8 documented in this encounter Discharge Disposition Disposition Code Departure Means Destination Discharge to home or self care documented in this encounter ED Notes * Nikolas Ashford MD - 05/16/2017 4:23 PM CST HPI Chief Complaint Patient presents with ??? Weakness - Generalized 4:22 PM 05/16/2017 A 77 y/o F with a hx of GERD, depression with anxiety, DJD, obesity, HLD, HTN, and A-fib presents to the ED c/o generalized weakness that onset today when she was going to her cardiology appointment. Patient notes she noticed a cough, with sputum, 4 days ago and her symptoms have progressively worsened. She reports a decrease in appetite and vomiting (1x today). Patient denies body aches, fever, hematuria, dysuria, frequency, urgency and diarrhea. She was seen at an urgent care last night. She was negative for strep. 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 No other complaints at this time. Patient History Patient Active Problem List Diagnosis Date Noted ??? Cough 03/12/2017 ??? Sore throat 03/12/2017 ??? Viral URI with cough 03/12/2017 ??? Anxiety 03/12/2017 ??? 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 Paroxysmal [...] Constitutional: Negative for chills, fatigue and fever. +generalized weakness. +decreased appetite HENT: Negative for congestion, ear pain, rhinorrhea, sneezing and sore throat. Respiratory: Positive for cough. Negative for shortness of breath and wheezing. Cardiovascular: Negative for chest pain and palpitations. Gastrointestinal: Positive for vomiting. Negative for abdominal pain, constipation, diarrhea and nausea. Genitourinary: Negative for dysuria, frequency, vaginal bleeding and vaginal discharge. Musculoskeletal: Negative for arthralgias, back pain, myalgias and neck pain. Skin: Negative for color change, pallor, rash and wound. Neurological: Negative for dizziness, syncope, weakness, light-headedness and headaches. All other systems reviewed and are negative. Physical Exam ED Triage Vitals Temp Pulse Resp BP SpO2 05/16/17 1526 05/16/17 1526 05/16/17 1526 05/16/17 1530 05/16/17 1526 36.6 ??C (97.8 ??F) 67 20 123/73 98 % Temp src Heart Rate Source Patient Position BP Location FiO2 (%) 05/16/17 1526 -- -- -- -- Temporal Physical Exam Constitutional: She is oriented to person, place, and time. She appears well- developed and well-nourished. No distress. Patient is alert, in no distress. HENT: Head: Normocephalic and atraumatic. Mouth/Throat: Oropharynx is clear and moist. Eyes: Conjunctivae and EOM are normal. Right eye exhibits no discharge. Left eye exhibits no discharge. Neck: Normal range of motion. Neck supple. Cardiovascular: Normal rate and intact distal pulses. Exam reveals no gallop and no friction rub. No murmur heard. Irregular heart beat. Pulmonary/Chest: Effort normal and breath sounds normal. No respiratory distress. She has no wheezes. She has no rales. Abdominal: Soft. She exhibits no distension and no mass. There is no tenderness. No hernia. Musculoskeletal: Normal range of motion. She exhibits no edema, tenderness or deformity. Neurological: She is alert and oriented to person, place, and time. Skin: Skin is warm and dry. Capillary refill takes less than 2 seconds. No rash noted. No erythema.No pallor. Psychiatric: She has a normal mood and affect. Her behavior is normal. Nursing note and vitals reviewed. ED Course & MDM Vitals: 05/16/17 1830 BP: 130/67 Pulse: 58 Resp: 15 Temp: SpO2: 96% Labs Reviewed COMPREHENSIVE METABOLIC PANEL - Abnormal Result Value Sodium 136 Potassium 3.8 CO2 22 BUN 10 Glucose 123 Creatinine 0.79 Calcium 9.4 Chloride 95 (*) Albumin 4.0 AST 24 ALT 17 Alk phos 41 Bilirubin 0.2 Protein, pl 7.3 Anion Gap 19 (*) Narrative: DIFFERENTIAL AUTO - Abnormal Neutrophils 59.4 Immature granulocytes 0.4 Lymphocytes 24.0 Monos 15.2 (*) Eosinophils 0.2 Basophils 0.8 Neutrophil absolute 2.85 Immature granulocyte, abs 0.02 Lymphocytes, abs 1.15 Monos, abs 0.73 Eosinophils, abs 0.01 Basophils, abs 0.04 Narrative: PRO B-TYPE NATRIURETIC PEPTIDE - Abnormal Pro BNP 942 (*) Narrative: URINALYSIS AND REFLEX TO MICROSCOPIC AND CULTURE - Abnormal Color, ur Yellow Clarity, ur Cloudy (*) Specific gravity, ur 1.027 pH, ur 5.5 Protein, ur Trace Glucose, ur Negative Ketones, ur 15 (*) Bilirubin, ur Small (*) Blood, ur Trace (*) Urobilinogen, ur 0.2 Nitrites, ur Negative Leukocyte esterase, ur Small (*) Narrative: URINALYSIS, MICROSCOPIC ONLY - Abnormal RBC, ur 2-5 (*) WBC, ur 25-50 (*) Bacteria, ur 2+ (*) Hyaline casts 10-30 (*) Calcium oxalate crystals, ur Moderate (*) Epithelial cells, ur 0-2 Narrative: BLOOD CULTURE CBC WITH AUTO DIFFERENTIAL WBC 4.8 RBC 4.50 Hgb 14.1 Hct 40.7 MCV 90.4 MCH 31.3 MCHC 34.6 RDW CV 12.4 RDW SD 41.2 Platelets 177 MPV 10.8 NRBC Abs 0.00 Narrative: LACTATE, WHOLE BLOOD Lactic acid, bld 2.0 Narrative: TROPONIN T Troponin T <0.01 Narrative: EGFR GFR >60 Narrative: XR Chest 1 Vw Portable Final Result No acute cardiopulmonary process. Electronically signed by: Garret Felder M.D. MDM Acute cystitis without hematuria 7:18 PM: Asuncion Stahl scribing for and in the presence of Nikolas Ashford MD. I electronically signed this note at 7:18 PM on 05/16/2017. I, Nikolas Ashford MD, have personally performed the services described in the documentation, reviewed the documentation, as recorded by the scribe in my presence, and it accurately and completely records my words and actions. Nikolas Ashford MD 05/16/171917 EOTYPER * Kisha Moralez RN - 05/16/2017 3:28 PM CST From her PMD's office with c/o weakness, one emesis, cough for 4 days EOTYPER documented in this encounter Miscellaneous Notes * ED Procedure Note - Nikolas Ashford MD - 05/16/2017 6:44 PM STEREOTYPER Associated Order(s): ECG 12-LEAD Procedure ECG 12 lead Date/Time: 05/16/2017 6:44 PM Performed by: NIKOLAS ASHFORD Authorized by: NIKOLAS ASHFORD Atrial fibrillation rate of 65, no acute ST elevation. Nikolas Ashford MD 05/16/17 1844 EOTYPER documented in this encounter Plan of Treatment Pending Results Name Type Priority Associated Diagnoses Date /Time ECG 12 lead ECG STAT 05/16/2017 6: 44 PM STEREOTYPER documented as of this encounter Procedures Procedure Name Priority Date/Time Associated Diagnosis Comments ECG 12-LEAD STAT 05/16/2017 6:44 PM STEREOTYPER Procedure Note - Nikolas Ashford MD - 05/16/2017 6:44 PM CSTThis note is in progress. Procedure ECG 12 lead Date/Time: 05/16/2017 6:44 PM Performed by: NIKOLAS ASHFORD Authorized by: NIKOLAS ASHFORD Atrial fibrillation rate of 65, no acute ST elevation. Nikolas Ashford MD 05/16/17 3124 URINALYSIS AND REFLEX TO MICROSCOPIC AND CULTURE STAT 05/16/2017 6:11 PM STEREOTYPER URINALYSIS, MICROSCOPIC ONLY STAT 05/16/2017 6:11 PM STEREOTYPER URINE CULTURE STAT 05/16/2017 6:11 PM STEREOTYPER XR CHEST 1 VIEW ED 05/16/2017 4:42 PM STEREOTYPER EGFR STAT 05/16/2017 4:13 PM STEREOTYPER DIFFERENTIAL AUTO STAT 05/16/2017 4:1 3 PM STEREOTYPER PRO B-TYPE NATRIURETIC PEPTIDE STAT 05/16/2017 4:13 PM STEREOTYPER CBC WITH AUTO DIFFERENTIAL STAT 05/16/2017 4:13 PM STEREOTYPER LACTATE, WHOLE BLOOD STAT 05/16/2017 4:13 PM STEREOTYPER BLOOD CULTURE STAT 05/16/2017 4:13 PM STEREOTYPER TROPONIN T STAT 05/16/2017 4:13 PM STEREOTYPER COMPREHENSIVE METABOLIC PANEL STAT 05/16/2017 4:13 PM STEREOTYPER DISCHARGE LABORATORY CUMULATIVE REPORT 05/16/2017 12:00 AM STEREOTYPER documented in this encounter Results * Urine culture (05/16/2017 6:11 PM STEREOTYPER) Report Final Report: Insignifican t growth based on current clinical standards. [facility] ([facility]) Comment:Testing performed by : [facility], [address] [place]., [address] Urine, clean voided 05/16/2017 6:11 PM STEREOTYPER 05/16/2017 10:11 PM STEREOTYPER Narrative [facility] ([facility]) - 05/17/2017 2:59 PM STEREOTYPER Nikolas Ashford MD LAB MICROBIOLOGY - GENE RAL ORDERABLES Final Result [facility] ([facility]) 1 [facility] [place] [address] * (ABNORMAL) Urinalysis, microscopic only (05/16/2017 6:11 PM STEREOTYPER) RBC, ur 2-5(A) 0 - 2 [facility] ([facility]) WBC, ur 25-50(A) 0 - 2 [facility] ([facility]) Bacteria, ur 2+(A) Negative [facility] ([facility]) Hyaline casts, ur 10-30(A) 0 - 2 [facility] ([facility]) Calcium oxalate crystals, ur Moderate(A ) Not Seen [facility] ([facility]) Epithelial cells, ur 0-2 0 - 2 [facility] ([facility]) Urine 05/16/2017 6:11 PM STEREOTYPER 05/16/2017 6:14 PM STEREOTYPER Narrative [facility] ([facility]) - 05/16/2017 6:51 PM STEREOTYPER Nikolas Ashford MD LAB URINE ORDERABLES Fi nal Result [facility] ([facility]) 1 [facility] [place] [address] * (ABNORMAL) Urinalysis reflex to microscopic and culture (05/16/2017 6:11 PM STEREOTYPER) Color, ur Yellow Yellow [facility] ([facility]) Clarity, ur Cloudy(A) Clear [facility] ([facility]) Specific gravity, ur 1.027 1.003 - 1.030 [facility] ([facility]) Comment:Normal Ranges: 1.003 -1.030 pH, ur 5.5 4.5 - 8.0 [facility] ([facility]) Comment:Normal ranges: 4.5-8 .0 Protein, ur ql Trace Negative mg/dL [facility] ([facility]) Glucose, ur ql Negative Negative mg/dL [facility] ([facility]) Ketones, ur 15(A) Negative [facility] ([place]) Bilirubin, ur Small(A) Negative [facility] ([facility]) Blood, ur Trace(A) Negative [facility] ([facility]) Urobilinogen, ur 0.2 0.2 - 1.0 [facility] ([facility]) Comment:Normal Ranges: 0.2-1 .0 EU/dL Nitrites, ur Negative Negative [facility] ([facility]) Leukocyte esterase, ur Small(A) Negative [facility] ([facility]) Urine 05/16/2017 6:11 PM STEREOTYPER 05/16/2017 6:14 PM STEREOTYPER Narrative [facility] ([facility]) - 05/16/2017 6:51 PM STEREOTYPER us Nikolas Ashford MD LAB MICROBIOLOGY - GENE RAL ORDERABLES Final Result [facility] ([facility]) 1 [facility] [place] [address] * XR Chest 1 Vw Portable (05/16/2017 4:42 PM STEREOTYPER) Anatomical Region Laterality Modality Body, Chest N/A Computed Radiogr aphy Impressions 05/16/2017 4:44 PM STEREOTYPER No acute cardiopulmonary process. Electronically signed by: Garret Felder M.D. Narrative 05/16/2017 4:44 PM STEREOTYPER EXAM: Chest; AP portable at 1640 HISTORY: Dizziness and wheezing. ??Shortness of breath. COMPARISON: 02/10/2016 FINDINGS: The heart is normal in size. ??A loop recorder superimposes the cardiac silhouette. ??No consolidation, pneumothorax, or pleural effusions are seen. Procedure Note Garret Felder MD - 05/16/2017 EXAM: Chest; AP portable at 1640 HISTORY: Dizziness and wheezing. Shortness of breath. COMPARISON: 02/10/2016 FINDINGS: The heart is normal in size. A loop recorder superimposes the cardiac silhouette. No consolidation, pneumothorax, or pleural effusions are seen. IMPRESSION: No acute cardiopulmonary process. Electronically signed by: Garret Felder M.D. Nikolas Ashford MD IMG XR PROCEDURES Final Result * eGFR (05/16/2017 4:13 PM STEREOTYPER) eGFR >60 mL/min/1.7 3 m2 [facility] ([facility]) Comment: Interpretive Data Reference Interval Normal ?>/= 90 mL/min/1.73m2 Mildly decreased* ? 60 - 89 mL/min/1.73m2 Mildly to moderately decreased ?45 - 59 mL/min/1.73m2 Moderately to severely decreased ??30 - 44 mL/min/1.73m2 Severely decreased ?15 - 29 mL/min/1.73m2 Kidney Failure ?< 15 ??mL/min/1.73m2 *Relative to young adult level If -Finnish multiply value by 1.16. Estimated glomerular filtration [...] was last reviewed 2015. Blood specimen (specimen) 05/16/2017 4:13 PM STEREOTYPER 05/16/2017 4:25 PM STEREOTYPER Narrative [facility] ([facility]) - 05/16/2017 5:40 PM STEREOTYPER us Maurilio Wolfe MD LAB BLOOD ORDERABLES Final Res ult [facility] ([place]) 1 [facility] [place] [address] * (ABNORMAL) Pro B-type natriuretic peptide (05/16/2017 4:13 PM STEREOTYPER) NT-proBNP 942(H) 10 - 280 pg/mL [facility] ([place]) Comment: Diagnosis of Congestive Heart Failure: ??Heart Failure Unlikely: All Ages ?Less than 300 pg/ml ??Heart Failure Possible: Less than 50Y ?? 300-450 pg/ml ?50-75 Y ? 300-900 pg/ml ?75-160Y ? 300-1800 pg/ml ?Heart Failure Likely: ?? Less than 50Y ?? Greater than 450 pg/ml ?50-75 Y ? Greater than 900 pg/ml ?75-160 Y ?Greater than 1,800 pg/ml ??Renal Failure: ?All Ages ?Greater than 1,200 pg/ml Current interpretive data was last revised on 2014. Blood specimen (specimen) 05/16/2017 4:13 PM STEREOTYPER 05/16/2017 4:39 PM STEREOTYPER Narrative [facility] ([facility]) - 05/16/2017 5:24 PM STEREOTYPER Nikolas Ashford MD LAB BLOOD ORDERABLES Fi nal Result [facility] ([facility]) 1 [facility] [place] [address] * Blood culture Blood Peripheral (05/16/2017 4:13 PM STEREOTYPER) Report Final Report: No growth [facility] ([place]) Comment:Testing performed by : [facility], [place]., [address] Blood specimen (specimen) (Peripheral) 05/16/2017 4:13 PM STEREOTYPER 05/16/2017 9:05 PM STEREOTYPER Narrative [facility] ([facility]) - 05/21/2017 7:01 AM STEREOTYPER Draw Blood cultures before administration of Antibiotics 1. Blood cultures are incubated for 5 days, and cultures are monitored continuously. ??The first negative report is issued within 24 hours of receipt in the laboratory. ??Positive cultures are called in accordance with the critical call policy. 2. The most important factor for detection microbes in the setting of blood stream infection is the volume of blood submitted for culture. ??For pediatric patients, the recommended volume of blood to collect is 1 mL of blood per year of patient age, up to 15 mL, per blood culture set. For adult patients, 20 mL of blood, divided equally between an aerobic and anaerobic blood culture bottle, is recommended for each blood culture set. ??Failure to collect an optimal blood volume can result in false negative blood cultures. 3. Bloodstream infection is more likely to be catheter related if the time to culture positivity of a blood culture drawn through the catheter is at least 2.5 hours faster than the time to positivity of a percutaneous culture of the same volume drawn at the same time, using the same media type. 4. Organism identification and/or antimicrobial susceptibly testing, if reported, are performed at [facility], [place] [address] 5. For blood cultures with gram-positive cocci, a rapid molecular test for organism identification may be performed using the [employer] Nanosphere Gram Positive Blood Culture Assay. The Nanosphere assay detects microbial DNA in positive blood culture broth via hybridization of target DNA to capture oligonucleotides on a microarray. This assay has been cleared by the [place] Food and Drug Administration and its performance characteristics have been verified by the [facility]. Interpretive data was last revised on August 05, 2016. us Nikolas Ashford MD LAB MICROBIOLOGY - GENE RAL ORDERABLES Final Result [facility] ([facility]) 1 [facility] [place] [address] * (ABNORMAL) Differential, auto (05/16/2017 4:13 PM STEREOTYPER) Neutrophil pct 59.4 44.0 - 80.0 % [facility] ([facility]) Imm gran pct 0.4 0.0 - 1.0 % [facility] ([facility]) Lymphocyte pct 24.0 13.0 - 44.0 % [facility] ([facility]) Monocyte pct 15.2(H) 2.0 - 11.0 % [facility] ([facility]) Eosinophil pct 0.2 0.0 - 6.0 % [facility] ([facility]) Basophil pct 0.8 0.0 - 3.0 % [facility] ([facility]) Neutrophil abs 2.85 1.60 - 7.00 K/cumm [facility] ([facility]) Imm gran abs 0.02 0.00 - 0.20 K/cumm [facility] ([facility]) Lymphocyte abs 1.15 0.50 - 4.30 K/cumm [facility] ([facility]) Monocyte abs 0.73 0.10 - 1.00 K/cumm [facility] ([facility]) Eosinophil abs 0.01 0.00 - 0.60 K/cumm [facility] ([facility]) Basophil abs 0.04 0.00 - 0.30 K/cumm [facility] ([facility]) Blood specimen (specimen) 05/16/2017 4:13 PM STEREOTYPER 05/16/2017 4:25 PM STEREOTYPER Narrative [facility] ([facility]) - 05/16/2017 4:28 PM STEREOTYPER us Maurilio Wolfe MD LAB BLOOD ORDERABLES Final Res ult [facility] ([facility]) [address] [facility] [place] [address] * Troponin T (05/16/2017 4:13 PM STEREOTYPER) [facility] Troponin T <0.01 0.00 - 0.06 ng/mL [facility] ([facility]) Comment: Interpretive Data Troponin table: ? Negative ? 0.00-0.06 ng/ml ? Indeterminate ?0.07-0.10 ng/ml ? Consistent with Myocardial Injury ?Greater than 0.10 ng/ml ?? Current interpretive data was last revised on 2014 Blood specimen (specimen) 05/16/2017 4:13 PM STEREOTYPER 05/16/2017 4:25 PM STEREOTYPER Narrative [facility] ([facility]) - 05/16/2017 5:40 PM STEREOTYPER us Maurilio Wolfe MD LAB BLOOD ORDERABLES Final Res ult [facility] ([facility]) [address] [facility] [place] [address] * Lactate, whole blood (05/16/2017 4:13 PM STEREOTYPER) [facility] Lactate, bld 2.0 0.5 - 2.2 mmol/L [facility] ([facility]) Blood specimen (specimen) 05/16/2017 4:13 PM STEREOTYPER 05/16/2017 4:25 PM STEREOTYPER Narrative [facility] ([facility]) - 05/16/2017 4:32 PM STEREOTYPER us Maurilio Wolfe MD LAB BLOOD ORDERABLES Final Res ult [facility] ([facility]) 1 [facility] [place] [address] * (ABNORMAL) Comprehensive metabolic panel (05/16/2017 4:13 PM STEREOTYPER) Sodium 136 135 - 145 mmol/L [facility] ([facility]) Potassium, pl 3.8 3.3 - 4.9 mmol/L [facility] ([facility]) CO2 22 22 - 32 mmol/L [facility] ([facility]) BUN 10 8 - 25 mg/dL [facility] ([facility]) Glucose 123 70 - 199 mg/dL [facility] ([facility]) [...] Current interpretive data was last revised 2017. Creatinine 0.79 0.60 - 1.10 mg/dL [facility] ([facility]) Calcium 9.4 8.5 - 10.3 mg/dL [facility] ([facility]) Chloride 95(L) 97 - 110 mmol/L [facility] ([facility]) Albumin 4.0 3.5 - 5.0 g/dL [facility] ([facility]) AST 24 10 - 45 Units/L [facility] ([facility]) ALT 17 7 - 45 Units/L [facility] ([facility]) Alk phos 41 40 - 130 Units/L [facility] ([facility]) Bilirubin, total 0.2 0.1 - 1.2 mg/dL [facility] ([facility]) Protein, pl 7.3 6.5 - 8.5 g/dL [facility] ([facility]) Anion gap 19(H) 2 - 15 mmol/L [facility] ([facility]) Blood specimen (specimen) 05/16/2017 4:13 PM STEREOTYPER 05/16/2017 4:25 PM STEREOTYPER Narrative [facility] ([facility]) - 05/16/2017 5:40 PM STEREOTYPER us Maurilio Wolfe MD LAB BLOOD ORDERABLES Final Res ult [facility] ([facility]) 1 [facility] [place] [address] * CBC with auto differential (05/16/2017 4:13 PM STEREOTYPER) WBC 4.8 3.8 - 9.9 K/cumm [facility] ([facility]) RBC 4.50 3.90 - 5.20 M/cumm [facility] ([facility]) Hgb 14.1 11.9 - 15.5 g/dL [facility] ([facility]) Hct 40.7 35.6 - 45.5 % [facility] ([facility]) MCV 90.4 81.3 - 96.4 fL [facility] ([facility]) MCH 31.3 27.1 - 33.3 pg [facility] ([facility]) MCHC 34.6 32.3 - 35.7 g/dL [facility] ([facility]) RDW CV 12.4 11.1 - 14.9 % [facility] ([facility]) RDW SD 41.2 35.7 - 48.1 fL [facility] ([facility]) Plt 177 150 - 400 K/cumm [facility] ([facility]) MPV 10.8 9.1 - 12.3 fL [facility] ([facility]) NRBC abs 0.00 0.00 - 0.01 K/cumm [facility] ([facility]) Blood specimen (specimen) 05/16/2017 4:13 PM STEREOTYPER 05/16/2017 4:25 PM STEREOTYPER Narrative [facility] ([facility]) - 05/16/2017 4:28 PM STEREOTYPER Maurilio Wolfe MD LAB BLOOD ORDERABLES Final Res ult [facility] ([facility]) 1 [facility] Department [place] [address] * DISCHARGE LABORATORY CUMULATIVE REPORT (05/16/2017 12:00 AM STEREOTYPER) Narrative 05/16/2017 12:00 AM STEREOTYPER Ordered by an unspecified provider. Historical Provider LAB BLOOD ORDERABLES Roshni l Result documented in this encounter Visit Diagnoses Diagnosis Acute cystitis without hematuria- Primary documented in this encounter Administered Medications Inactive Administered Medications - up to 3 most recent administrations Medication Order MAR Action Action Date Dose Rate Site sodium chloride 0.9% bolus 1,000 mL 1,000 mL, intravenous, Once, On Fri05/16/17 at 1630, For 1 dose New Bag 05/16/2017 4:44 PM STEREOTYPER 1,000 mL documented in this encounter Active and Recently Administered Medications Times are shown in STEREOTYPER. Scheduled Medication Order 05/14/2017 05/15/2017 05/16/2017 sodium chloride 0.9% bolus 1,000 mL (COMPLETED) 1,000 mL, intravenous, Once, On Fri05/16/17 at 1630, For 1 dose 1644 (New Bag - Prov ider: Katelyn Johnson, BRAYAN)2005 (Stopped - Provider: Daniela Hernandez RN) documented in this encounter Orders Medications Ordered That Flaco ht Not Have Been Administered Count Last Ordered Date First Ordered Date sodium chloride 0.9% bolus 1,000 mL 1 05/16 Nursing Count Last Ordered Date First Orde red Date CARDIO RESPIRATORY MONITORING 1 05/16/2017 CONTINUOUS PULSE OXIMETRY 1 05/16/2017 IV Count Last Ordered Date First Orde red Date SALINE LOCK IV 1 05/16/2017 documented in this encounter Care Teams Recreation Assistant Relationship Specialty Start Date End Date Ronald Castrejon MD PCP - General 3/31/17 4/26/23 documented as of this encounter
--- OUTSIDE RECORDS SUMMARY | 2024-04-11 06:40 | XMS_ITS | Encounter Summary ---
Author Organization [facility] Address [address] [place] [address] Care Team Providers Care Heating And Cooling Technician Name Role Phone Ronald Castrejon MD Primary Care Provider [phone] Encounter Details Date Type Department Care Team (Late st Contact Info) Description 12/26/2016 Telephone [facility] 2 [facility] [address] [place] [address] Ronald Castrejon MD [address] [place] [address] [address] [place] [address] Social History Tobacco Use Types Packs/Day Years Used Date Smoking Tobacco: Former Cigarettes Q uit: 03/24/1969 Alcohol Use Standard Drinks/Week Comments No 0 (1 standard drink = 0.6 oz pur e alcohol) Comments Unknown Sex and Gender Information Value Date Recorded Sex Assigned at Not on file Legal Sex Female 11:18 AM CAMPAIGN ASSOCIATE Gender Identity Female 10/09/2022 9:08 AM CDT Sexual Orientation Choose not to disclose 2022 9:08 AM CDT documented as of this encounter Miscellaneous Notes * Telephone Encounter - Lyn Chapin - 12/27/2016 2:51 PM CDT noted * Telephone Encounter - Savanah Miller - 12/27/2016 1:56 PM CDT To ref * Telephone Encounter - Ronald Castrejon MD - 12/27/2016 8:26 AM CDT I dictated another no they still have a problem Center to sleep lab all at [facility] I dictated another note explaining why we want her to have a sleep study if that is not good enoughfor all [facility] please get her set up for sleep study at [facility] * Telephone Encounter - Savanah Miller - 12/26/2016 2:44 PM CDT To jr * Telephone Encounter - Opal Zhang - 12/26/2016 2:05 PM CDT Pt was seen yesterday a sleep study dx sleep disorder. Lyn from [facility] sleep lab is calling stating that in dr castrejon office note from yesterday 12-25-16 it does not mention anything about that a sleep study needs to be done or why discussed, per lyn per the [place] sleep [facility] guidelines [facility] to have office notes as to pt needs sleep study discussed in case [facility] sleep gets audited and they have to show why this pt has a sleep study when office notes does not mention it. So in order forthis pt to get a sleep study dr castrejon will need to dictate this on office note. Please advise on what you would like to do? documented in this encounter Plan of Treatment Not on file documented as of this encounter Visit Diagnoses Not on filedocumented in this encounter Care Teams Heating And Cooling Technician Relationship Specialty Start Date End Date Ronald Castrejon MD PCP - General 06/21/16 07/17/22 documented as of this encounter
--- OUTSIDE RECORDS SUMMARY | 2024-04-11 06:40 | XMS_ITS | Encounter Summary ---
Author Organization [facility] Address [address] [place] [address] Care Team Providers Care Bicycle Fitter Name Role Phone Ronald Castrejon MD Primary Care Provider [phone] Encounter Details Date Type Department Care Team (Late st Contact Info) Description 02/01/2016 6:04 AM DISC PAD GRINDING MACHINE FEEDER - 02/03/2016 2:08 PM DISC PAD GRINDING MACHINE FEEDER Hospital Encounter [facility] Reynaldo Harvey, DO [address] [place] [address] Paroxysmal atrial fibrillation (CMS/HCC); Sick sinus syndrome (CMS/HCC); Cardiomegaly Social History Tobacco Use Types Packs/Day Years Used Date Smoking Tobacco: Former Cigarettes Q uit: 03/24/1969 Alcohol Use Standard Drinks/Week Comments No 0 (1 standard drink = 0.6 oz pur e alcohol) Comments Unknown Sex and Gender Information Value Date Recorded Sex Assigned at Not on file Legal Sex Female 11:18 AM DISC PAD GRINDING MACHINE FEEDER Gender Identity Female 10/09/2022 9:08 AM CDT Sexual Orientation Choose not to disclose 2022 9:08 AM CDT documented as of this encounter Last Filed Vital Signs Vital Sign Reading Time Taken Comments Blood Pressure 126/65 02/03/2016 11:33 AM DISC PAD GRINDING MACHINE FEEDER Pulse 53 02/03/2016 11:33 AM DISC PAD GRINDING MACHINE FEEDER Temperature - - Respiratory Rate - - Oxygen Saturation - - Inhaled Oxygen Concentration - - Weight 74.8 kg (164 lb 14.5 oz) 02/03/2016 7:01 AM DISC PAD GRINDING MACHINE FEEDER Height 154.9 cm (5' 0.98 ) 02/02/2016 8:40 PM CS T Body Mass Index 31.17 02/02/2016 8:40 PM DISC PAD GRINDING MACHINE FEEDER documented in this encounter Discharge Summaries * Provider, MD Rosalinda - 02/03/2016 12:00 AM CST DISCHARGE SUMMARY Patient: ABENA HALL Account: [id number] Room No: 711-02 : 1940 Patient Type: SDS Attend.: Reynaldo Flannery D.O. Admit Date: 02/01/2016 Dict.: Dmitri Mcallister Disch. Date: 02/03/2016 DISCHARGE DIAGNOSES Paroxysmal atrial fibrillation. PROCEDURE Electrophysiology study with 3 dimensional mapping and radiofrequency ablation. HOSPITAL COURSE Patient is a 75-year-old female with a known history of paroxysmal atrial fibrillation, sinus node dysfunction, tachy Josue syndrome who was referred to Dr. Flannery for further evaluation. Patient underwent radiofrequency ablation on 02/01/[address] Camarena. The procedure was without incident and details can be found in his dictation. After the procedure, patient was transferred to the telemetry floor where she remained in stable condition. Next a.m. after the procedure, patient did have some oozing and bleeding from the procedure site and thus pressure was applied and it was recommended that the patient stay overnight 1 more night. This a.m. there is no further bleeding from the procedure sites and her hemoglobin and hematocrit have been stable. The patient does complain of a 3 pounds weight gain and some shortness of breath and thus will be given a dose of IV Lasix prior to discharge to home. No other complaints. PHYSICAL EXAM FINDINGS TODAY General: Patient is alert, oriented x3. She is lying in bed. Family is at the bedside. No acute distress. Vital Signs: Temp 99.9, blood pressure 144/65, heart rate 62, respiratory 18 O2 sats 97% on room air. Lungs: Clear to air bilaterally. No wheezing or rhonchi. Cardiovascular: S1, S2 regular. No murmurs, rubs, or gallops. GI: Abdomen is soft, nontender, bowel sounds positive. Extremities: Without edema. Distal pulses positive. LABORATORY DATA Today hemoglobin 11.7 and hematocrit 35.7. DISCHARGE MEDICATIONS 1. Aspirin 81 mg daily. 2. Colchicine 0.6 mg b.i.d. 3. Eliquis 5 mg b.i.d. DISCHARGE INSTRUCTIONS Were provided to the patient. Understanding was verbalized. Patient was instructed to follow up with Dr. Flannery in the next 4 weeks. Thank you for allowing us to participate in the care of this patient. Electronically Authenticated by: CECI Jolley On 02/07/2016 03:08 PM DISC PAD GRINDING MACHINE FEEDER Electronically Authenticated by: Reynaldo Flannery DO On 02/23/2016 01:31 PM DISC PAD GRINDING MACHINE FEEDER Reynaldo Flannery D.O. Dictated by: Dmitri Mcallister/madi TD: 02/03/2016 18:41 documented in this encounter Medications at Time of Discharge cholecalciferol (VITAMIN D-3) 2,000 unit tabletIndication s:Prevention of Vitamin D Deficiency take 1 tablet by oral route every day 90 3 12/06/2015 apixaban (ELIQUIS) 5 mg tablet take 1 tablet by oral route 2 times every day 0 0 01/24/2016 3 aspirin (ASPIR-81) 81 mg tablet take 1 tablet by oral route every day 0 0 06/06/2015 7 fluticasone (FLONASE) 50 mcg/actuation nasal spray inhale 2 spray by Intranasal route every day in each nostril 1 Bottle 11 09/08/2015 8 loratadine (CLARITIN) 10 mg tablet take 1 tablet by oral route every day 0 0 01/24/2016 7 LORazepam (ATIVAN) 0.5 mg tablet take 1 Tablet by oral route 3 times every day as needed 90 4 03/23/2015 7 documented as of this encounter Plan of Treatment Not on file documented as of this encounter Procedures Procedure Name Priority Date/Time Associated Diagnosis Comments BLOOD HEMOGLOBIN, HEMATOCRIT Routine 02/03/2016 5:24 AM DISC PAD GRINDING MACHINE FEEDER DISCHARGE LABORATORY CUMULATIVE REPORT 02/03/2016 PLASMA PARTIAL THROMBOPLASTIN TIME (PTT) Routine 02/02/2016 8:54 AM DISC PAD GRINDING MACHINE FEEDER BLOOD CELL COUNT (CBC), MORPHOLOGIC EXAM Routine 02/02/2016 6:26 AM DISC PAD GRINDING MACHINE FEEDER CARDIAC CATHETERIZATION Routine 02/01/20 16 8:20 AM DISC PAD GRINDING MACHINE FEEDER PLASMA PROTHROMBIN TIME (PT) Routine 02/01/2016 6:50 AM DISC PAD GRINDING MACHINE FEEDER CARDIOLOGY PROCEDURE LOG 02/01/2016 TRANSESOPHAGEAL ECHO (EVELYN) W DOPPLER/CF WO CONTRAST Routine 02/01/2016 12:00 AM DISC PAD GRINDING MACHINE FEEDER documented in this encounter Results * (ABNORMAL) Blood hemoglobin, hematocrit (02/03/2016 5:24 AM DISC PAD GRINDING MACHINE FEEDER) Hgb 11.7(L) 12.0 - 15.0 g/dl CDR HISTORICAL RESULTS Hct 35.9(L) 37.0 - 47.0 % CDR HISTORICAL RESULTS Blood specimen (specimen) 02/03/2016 5:24 AM DISC PAD GRINDING MACHINE FEEDER us Reynaldo Flannery DO LAB BLOOD ORDERABLES Fin al Result CDR HISTORICAL RESULTS * DISCHARGE LABORATORY CUMULATIVE REPORT (02/03/2016) Narrative 02/03/2016 Ordered by an unspecified provider. us Historical Provider LAB BLOOD ORDERABLES Roshni l Result * Plasma partial thromboplastin time (PTT) (02/02/2016 8:54 AM DISC PAD GRINDING MACHINE FEEDER) APTT 30.3 25.0 - 37.0 seconds CDR HISTORICAL RESULTS Plasma 02/02/2016 8:54 AM DISC PAD GRINDING MACHINE FEEDER Siobhan Us WOOD BOATBUILDER LAB BLOOD ORDERABLES Final Result CDR HISTORICAL RESULTS * (ABNORMAL) Blood cell count (CBC), morphologic exam (02/02/2016 6:26 AM DISC PAD GRINDING MACHINE FEEDER) WBC 10.2(H) 3.8 - 9.8 K/cumm CDR HISTORICAL RESULTS RBC 3.77(L) 4.20 - 5.20 M/cumm CDR HISTORICAL RESULTS Hgb 11.6(L) 12.0 - 15.0 g/dl CDR HISTORICAL RESULTS Hct 36.3(L) 37.0 - 47.0 % CDR HISTORICAL RESULTS MCV 96.3(H) 82.0 - 96.0 fl CDR HISTORICAL RESULTS MCH 30.8 27.0 - 32.0 pg CDR HISTORICAL RESULTS MCHC 32.0 29.0 - 35.0 g/dl CDR HISTORICAL RESULTS Platelets 182 150 - 450 K/cumm CDR HISTORICAL RESULTS RDW 44.7 36.4 - 46.3 fl CDR HISTORICAL RESULTS Rdw 13.0 11.5 - 14.5 % CDR HISTORICAL RESULTS MPV 11.1 8.6 - 12.6 fl CDR HISTORICAL RESULTS Neutrophils 75.1 42.0 - 85.0 % CDR HISTORICAL RESULTS Neutrophils, abs 7.6 2.1 - 8.5 K/cumm CDR HISTORICAL RESULTS Lymphocytes 13.9(L) 16.0 - 52.0 % CDR HISTORICAL RESULTS Lymphocytes, abs 1.4 0.8 - 5.2 K/cumm CDR HISTORICAL RESULTS Monos 9.9 1.0 - 13.0 % CDR HISTORICAL RESULTS Monocytes, absolute 1.0 0.0 - 1.3 K/cumm CDR HISTORICAL RESULTS Eosinophils 0.7 0.0 - 7.0 % CDR HISTORICAL RESULTS Eosinophils, abs 0.1 0.0 - 0.7 K/cumm CDR HISTORICAL RESULTS Basophils 0.2 0.0 - 4.0 % CDR HISTORICAL RESULTS Basophils, abs 0.0 0.0 - 0.4 K/cumm CDR HISTORICAL RESULTS Young granulocytes, % 0.2 0.0 - 1.0 % CDR HISTORICAL RESULTS Young granulocyte 0.02 0.00 - 0.10 K/cumm CDR HISTORICAL RESULTS NRBC 0.0 0.0 - 0.2 #/100 WBC CDR HISTORICAL RESULTS NRBC, abs 0.00 0.00 - 0.01 K/cumm CDR HISTORICAL RESULTS Blood specimen (specimen) 02/02/2016 6:26 AM DISC PAD GRINDING MACHINE FEEDER Result [facility] Siobhan Us WOOD BOATBUILDER LAB BLOOD ORDERABLES Final Result Performing Organization Address City/[facility] Co de Phone Number CDR HISTORICAL RESULTS * Cardiac Catheterization (02/01/2016 8:20 AM DISC PAD GRINDING MACHINE FEEDER) Anatomical Region Laterality Modality X-Ray Angiograph y 02/01/2016 8:20 AM DISC PAD GRINDING MACHINE FEEDER Historical Provider CV CARDIAC CATH PROCEDURE S Final Result * (ABNORMAL) Plasma prothrombin time (PT) (02/01/2016 6:50 AM DISC PAD GRINDING MACHINE FEEDER) Prothrombin time (PT) 17.9(H) 9.5 - 13.0 seconds CDR HISTORICAL RESULTS INR 1.55(H) 0.90 - 1.20 CDR HIST ORICAL RESULTS Plasma 02/01/2016 6:50 AM DISC PAD GRINDING MACHINE FEEDER Result [facility] Reynaldo Flannery DO LAB BLOOD ORDERABLES Fin al Result Performing Organization Address [facility] Co de Phone Number CDR HISTORICAL RESULTS * CARDIOLOGY PROCEDURE LOG (02/01/2016) Anatomical Region Laterality Modality X-Ray Angiograph y Narrative 02/01/2016 Ordered by an unspecified provider. Result [facility] Historical Provider CV CARDIAC CATH PROCEDURE S Final Result * Transesophageal Echocardiogram (EVELYN) Complete (02/01/2016 12:00 AM DISC PAD GRINDING MACHINE FEEDER) Anatomical Region Laterality Modality Ultrasound 02/01/2016 Narrative 02/01/2016 2:35 PM DISC PAD GRINDING MACHINE FEEDER ?CARDIOLOGY GRAPHICS Patient: ?ABENA HALL ? : ? 1940 Account: ?[id number] ? Age: ? 75 ?Room No: ? 711- 02 Attend.: ?Reynaldo Flannery D.O. ?Patient Type: ??SDS Dict.: ?Reynaldo Flannery D.O. ?Admit Date: ?02/01/2016 ? TRANSESOPHAGEAL ECHOCARDIOGRAM Date of Exam: ??02/01/[address] Robinson Holland PRIMARY CARE Dr. Ronald Castrejon PROCEDURES Transesophageal echo with Doppler and color flow Doppler interrogation prior to ablation for atrial fibrillation, rule out left atrial appendage thrombus. PROCEDURE After informed consent, the patient was given IV sedation with intravenous Versed and fentanyl. ??The posterior pharynx was anesthetized with viscous lidocaine jelly. ??The transesophageal probe was inserted without difficulty, and echocardiographic images were acquired. The left ventricle was normal in size. ??Wall thickness was normal. ??Left ventricular systolic function was normal with an estimated ejection fraction of 60%. ??No wall motion abnormalities were identified. ??The right ventricle was normal in size and had normal systolic function. ??There was mild right atrial and mild to moderate left atrial enlargement noted. ??There was no intracavitary mass or thrombus noted. ??The left atrial appendage was visualized and free of mass or thrombus. ??Left atrial appendage emptying velocity was 0.8 m/sec. ??The pulmonary veins were identified and had normal Doppler flow patterns. ??The aortic, mitral, tricuspid and pulmonic valves were structurally normal by echo appearance. ??There were no significant abnormal Doppler flows, with trivial mild mitral and tricuspid insufficiency. The pulmonary veins had normal Doppler flow patterns. ??The ascending, descending and transverse thoracic aorta was normal in size and caliber without aneurysmal dilatation, dissection or atheromatous debris. CONCLUSION 1. ??Normal left ventricular size and systolic function. 2. ??No left atrial appendage thrombus. Electronically Authenticated and Edited by: Reynaldo Flannery DO On 02/23/2016 01:31 PM DISC PAD GRINDING MACHINE FEEDER Dictated by Kiya Gutierrez/madi Job #: ??[id number] DD: ??02/01/2016 13:48 TD: ??02/01/2016 14:35 CC: Sisi EarlyCRadha Castrejon M.D. Procedure Note Provider, MD Rosalinda - 07/23/2016 CARDIOLOGY GRAPHICS Patient: ABENA HALL : 1940 Account: [id number] Age: 75 Room No: 711-02 Attend.: Reynaldo Flannery D.O. Patient Type: SDS Dict.: Reynaldo Flannery D.O. Admit Date: 02/01/2016 TRANSESOPHAGEAL ECHOCARDIOGRAM Date of Exam: 02/01/[address] Robinson Holland PRIMARY CARE Dr. Ronald Castrejon PROCEDURES Transesophageal echo with Doppler and color flow Doppler interrogationprior to ablation for atrial fibrillation, rule out left atrial appendagethrombus. PROCEDURE After informed consent, the patient was given IV sedation withintravenous Versed and fentanyl. The posterior pharynx was anesthetized withviscous lidocaine jelly. The transesophageal probe was inserted withoutdifficulty, and echocardiographic images were acquired. The left ventricle was normal in size. Wall thickness was normal. Left ventricular systolic function was normal with an estimated ejectionfraction of 60%. No wall motion abnormalities were identified. The rightventricle was normal in size and had normal systolic function. There was mildright atrial and mild to moderate left atrial enlargement noted. There was no intracavitary mass or thrombus noted. The left atrial appendage was visualized and free of mass or thrombus. Left atrial appendage emptying velocity was 0.8 m/sec. The pulmonary veins were identified and hadnormal Doppler flow patterns. The aortic, mitral, tricuspid and pulmonicvalves were structurally normal by echo appearance. There were no significant abnormal Doppler flows, with trivial mild mitral and tricuspidinsufficiency. The pulmonary veins had normal Doppler flow patterns. The ascending, descending and transverse thoracic aorta was normal in size and caliber without aneurysmal dilatation, dissection or atheromatous debris. CONCLUSION 1. Normal left ventricular size and systolic function. 2. No left atrial appendage thrombus. Electronically Authenticated and Edited by: Reynaldo Flannery DO On 02/23/2016 01:31 PM DISC PAD GRINDING MACHINE FEEDER Dictated by Kiya Gutierrez/madi TD: 02/01/2016 14:35 CC: Sisi Early F.A.C.C., M.D. Historical Provider MD [facility] ECHO PROCEDURES Final Result documented in this encounter Visit Diagnoses Diagnosis Paroxysmal atrial fibrillation (CMS/HCC) (HCC) Atrial fibrillation Sick sinus syndrome (CMS/HCC) (HCC) Sinoatrial node dysfunction Cardiomegaly documented in this encounter Care Teams Bicycle Fitter Relationship Specialty Start Date End Date Ronald Castrejon MD PCP - General 03/31/13 05/28/16 documented as of this encounter
--- OUTSIDE RECORDS SUMMARY | 2024-04-11 06:40 | XMS_ITS | Encounter Summary ---
Author Organization [facility] Address [address] [place] [address] Care Team Providers Care Marine Scientist Name Role Phone Ronald Castrejon MD Primary Care Provider [phone] Encounter Details Date Type Department Care Team (Late st Contact Info) Description 01/30/2017 Telephone [facility] 2 [facility] [address] [place] [address] Ronald Castrejon MD [address] [place] [address] Social History Tobacco Use Types Packs/Day Years Used Date Smoking Tobacco: Former Cigarettes Q uit: 03/24/1969 Alcohol Use Standard Drinks/Week Comments No 0 (1 standard drink = 0.6 oz pur e alcohol) Comments Unknown Sex and Gender Information Value Date Recorded Sex Assigned at Not on file Legal Sex Female 11:18 AM SPOOLER OPERATOR Gender Identity Female 10/09/2022 9:08 AM CDT Sexual Orientation Choose not to disclose 2022 9:08 AM CDT documented as of this encounter Miscellaneous Notes * Telephone Encounter - Jeaneth - 01/30/2017 3:11 PM CST Referral sent to Dr. Lara office, they will contact patient for appointment LER OPERATOR * Telephone Encounter - Cindi Benito MA - 01/30/2017 1:36 PM SPOOLER OPERATOR Pt aware. Task sent to referrals. LER OPERATOR * Telephone Encounter - Ronald Castrejon MD - 01/30/2017 12:44 PM CST Positive for moderate sleep apnea set up with Dr. Lara for consultation LER OPERATOR * Telephone Encounter - Cindi Benito MA - 01/30/2017 9:41 AM SPOOLER OPERATOR jr LER OPERATOR * Telephone Encounter - Jeaneth Chapin - 01/30/2017 9:29 AM CST Patient calling in wanting sleep study results, they are under procedures please call her at [phone] with results LER OPERATOR documented in this encounter Plan of Treatment Not on file documented as of this encounter Visit Diagnoses Not on filedocumented in this encounter Care Teams Marine Scientist Relationship Specialty Start Date End Date Ronald Castrejon MD PCP - General 06/21/16 07/17/22 documented as of this encounter
--- OUTSIDE RECORDS SUMMARY | 2024-04-11 06:40 | XMS_ITS | Encounter Summary ---
Author Organization [facility] Address [address] [place] [address] Care Team Providers Care Spice Miller Hammer Mill Name Role Phone Ronald Castrejon MD Primary Care Provider [phone] Reynaldo Flannery DO Unavailable [phone] Guanakito Holland MD Unavailable Jaclyn Eid RN Unavailable [phone] Annel Curiel RN Unavailable Encounter Details Date Type Department Care Team (Late st Contact Info) Description 01/29/2017 Orders Only [facility] 2 [facility] [address] [place] [address] Ronald Castrejon MD [address] [place] [address] [address] [place] [address] Colon cancer screening (Primary Dx) Social History Tobacco Use Types [...] on file Legal Sex Female 11:18 AM GRIND OPERATOR Gender Identity Female 10/09/2022 9:08 AM CDT Sexual Orientation Choose not to disclose 2022 9:08 AM CDT documented as of this encounter Plan of Treatment Not on file documented as of this encounter Visit Diagnoses Diagnosis Colon cancer screening- Primary Special screening for malignant neoplasms, colon documented in this encounter Care Teams Spice Miller [employer] Relationship Specialty Start Date End Date Ronald Castrejon MD PCP - General 06/21/16 07/17/22 Reynaldo Flannery DO Consulting Physician Cardiology 09/26/17 Guanakito Holland MD Consulting Physician Cardiovascular Disease 07/29/18 Jaclyn Eid RN [address] [place] [address] Aircraft Motor Mechanic 07/31/18 11/29/18 Annel Curiel RN [address] [place] [id number] Aircraft Motor Mechanic 11/18/18 05/16/19 documented as of this encounter
--- OUTSIDE RECORDS SUMMARY | 2024-04-11 06:40 | XMS_ITS | Encounter Summary ---
Author Organization [facility] Address [address] [place] [address] Care Team Providers Care Sales And Marketing Manager Name Role Phone Ronald Castrejon MD Primary Care Provider [phone] Encounter Details Date Type Department Care Team (Late st Contact Info) Description 06/12/2017 Telephone [facility] 2 [facility] [address] [place] [address] Ronald Castrejon MD [address] [place] [address] [address] [place] [address] Social History Tobacco Use Types Packs/Day Years Used Date Smoking Tobacco: Former Smokeless Tobacco: Never Alcohol Use Standard Drinks/Week Comments No 0 (1 standard drink = 0.6 oz pur e alcohol) Comments Unknown Sex and Gender Information Value Date Recorded Sex Assigned at Not on file Legal Sex Female 11:18 AM CERTIFIED PERSONAL FINANCE COUNSELOR Gender Identity Female 10/09/2022 9:08 AM CDT Sexual Orientation Choose not to disclose 2022 9:08 AM CDT documented as of this encounter Miscellaneous Notes * Telephone Encounter - Alyssia Shah MA - 06/13/2017 3:37 PM CDT Patient aware and wants to look into finding a vascular surgeon herself and will call back on Friday * Telephone Encounter - Ronald Castrejon MD - 06/13/2017 3:03 PM CDT Cancel ultrasound scheduled by me have the patient see Dr. zafar vascular surgeon for abdominal aortic aneurysm new diagnosis I recommend the patient push off her colonoscopy if her wash oil cooler operator feels that the aneurysm is a contraindication * Telephone Encounter - Siobhan Sterling MA - 06/13/2017 1:45 PM CDT Spoke with pt and she did have an US done on 05-13-17 results are on your desk. She does not want todo another one * Telephone Encounter - Rosa Diaz MA - 06/13/2017 11:34 AM CDT Patient informed patient is requesting to speak to personally and would like him to call her. Please advise * Telephone Encounter - Ronald Castrejon MD - 06/13/2017 6:27 AM CDT Delay colonoscopy for 1 month schedule patient for ultrasound of abdominal aorta diagnosis aneurysmdue this ultrasound next week * Telephone Encounter - Fatimah Grant - 06/12/2017 3:16 PM CDT Pt is having a colonoscopy on 06/18/[address] Francois. Pt was told to call Dr Staples and make sure it is still ok considering pt has an aneurism in her aorta. Please advise. documented in this encounter Plan of Treatment Not on file documented as of this encounter Visit Diagnoses Not on filedocumented in this encounter Care Teams Sales And Marketing Manager Relationship Specialty Start Date End Date Ronald Castrejon MD PCP - General 06/21/16 07/17/22 documented as of this encounter
--- OUTSIDE RECORDS SUMMARY | 2024-04-11 06:40 | XMS_ITS | Encounter Summary ---
Author Organization [facility] Healthcare Address [address] [place] [address] Care Team Providers Care Cad Operator Name Role Phone Ronald Castrejon MD Primary Care Provider [phone] Encounter Details Date Type Department Care Team (Late st Contact Info) Description 11/26/2016 10:03 AM CDT - 11/26/2016 11:59 PM CDT Hospital Encounter [facility] INTERIM Ronald Castrejon MD [address] [place] [id number] Discharge Disposition: Discharge to home or self care Social History Tobacco Use Types Packs/Day Years Used Date Smoking Tobacco: Former Cigarettes Q uit: 03/24/1969 Alcohol Use Standard Drinks/Week Comments No 0 (1 standard drink = 0.6 oz pur e alcohol) Comments Unknown Sex and Gender Information Value Date Recorded Sex Assigned at Not on file 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 Gender Identity Female 10/09/2022 9:08 AM CDT Sexual Orientation Choose not to disclose 2022 9:08 AM CDT documented as of this encounter Medications at Time of Discharge cholecalciferol (VITAMIN D-3) 2,000 unit tabletIndication s:Prevention of Vitamin D Deficiency take 1 tablet by oral route every day 90 3 12/06/2015 albuterol HFA (PROAIR HFA) 90 mcg/actuation inhaler inhale 2 puff by inhalation route every 4 - 6 hours as needed 1 Inhaler 0 03/27/2016 7 ALPRAZolam (XANAX) 0.5 mg tablet 10/10/2016 8 apixaban (ELIQUIS) 5 mg tablet take 1 tablet by oral route 2 times every day 0 0 01/24/2016 3 aspirin (ASPIR-81) 81 mg tablet take 1 tablet by oral route every day 0 0 06/06/2015 7 colchicine (COLCRYS) 0.6 mg tablet take 1 Tablet by ORAL route 2 times every day 0 0 03/01/2016 7 fluticasone (FLONASE) 50 mcg/actuation nasal spray inhale 2 spray by Intranasal route every day in each nostril 1 Bottle 11 09/08/2015 8 lansoprazole (PREVACID) 15 mg capsule Take 15 mg by mouth daily. 9 loratadine (CLARITIN) 10 mg tablet take 1 tablet by oral route every day 0 0 01/24/2016 7 LORazepam (ATIVAN) 0.5 mg tablet take 1 Tablet by oral route 3 times every day as needed 90 4 03/23/2015 7 documented as of this encounter Discharge Disposition Disposition Code Departure Means Destination Discharge to home or self care documented in this encounter Plan of Treatment Not on file documented as of this encounter Procedures Procedure Name Priority Date/Time Associated Diagnosis Comments EGFR Routine 11/26/2016 10:03 AM CDT DISCHARGE LABORATORY CUMULATIVE REPORT 11/26/2016 12:00 AM CDT documented in this encounter Results * eGFR (11/26/2016 10:03 AM CDT) [facility] eGFR 68 mL/min/1.7 3 m2 ANDREW DAWN Comment: Interpretive Data Reference Interval Normal ?>/= 90 mL/min/1.73m2 Mildly decreased* ? 60 - 89 mL/min/1.73m2 Mildly to moderately decreased ?45 - 59 mL/min/1.73m2 Moderately to severely decreased ??30 - 44 mL/min/1.73m2 Severely decreased ?15 - 29 mL/min/1.73m2 Kidney Failure ?< 15 ??mL/min/1.73m2 *Relative to young adult level If -[place] multiply value by 1.16. Estimated glomerular filtration [...] was last reviewed 2015. Blood specimen (specimen) 11/26/2016 10:03 AM CDT 11/26/2016 8:12 PM CDT Ronald Castrejon MD LAB BLOOD ORDERABLES Final Res ult Performing Organization Address City/State/[facility] Phone Number [facility] [address] [address] [place] [address] * DISCHARGE LABORATORY CUMULATIVE REPORT (11/26/2016 12:00 AM CDT) Narrative 11/26/2016 12:00 AM CDT Ordered by an unspecified provider. us Historical Provider LAB BLOOD ORDERABLES Roshni l Result documented in this encounter Visit Diagnoses Not on filedocumented in this encounter Care Teams Cad Operator Relationship Specialty Start Date End Date Ronald Castrejon MD PCP - General 06/21/16 07/17/22 documented as of this encounter
--- OUTSIDE RECORDS SUMMARY | 2024-04-11 06:40 | XMS_ITS | Encounter Summary ---
Author Organization [facility] Address [address] [place] [address] Care Team Providers Care Land Title Examiner Name Role Phone Ronald Castrejon MD Primary Care Provider [phone] Reason for Visit * Reason Comments Eye Trauma left eye- Encounter Details Date Type Department Care Team (Late st Contact Info) Description 08/31/2016 6:45 PM CDT Office Visit [facility] [address] [place] [address] [place] [address] Leila Meléndez NP [id number] [place] [address] Cornea abrasion, left, initial encounter Social History Tobacco Use Types Packs/Day Years Used Date Smoking Tobacco: Former Cigarettes Q uit: 03/24/1969 Alcohol Use Standard Drinks/Week Comments No 0 (1 standard drink = 0.6 oz pur e alcohol) Comments Unknown Sex and Gender Information Value Date Recorded Sex Assigned at Not on file 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[employer] Gender Identity Female 10/09/2022 9:08 AM CDT Sexual Orientation Choose not to disclose 2022 9:08 AM CDT documented as of this encounter Last Filed Vital Signs Vital Sign Reading Time Taken Comments Blood Pressure 138/94 08/31/2016 7:05 PM CDT Pulse 74 08/31/2016 7:05 PM CDT Temperature 36.6 ??C (97.8 ??F) 08/31/2016 7:05 PM C DT Respiratory Rate 18 08/31/2016 7:05 PM CDT Oxygen Saturation 98% 08/31/2016 7:05 PM CDT Inhaled Oxygen Concentration - - Weight 76.4 kg (168 lb 6.4 oz) 08/31/2016 7:05 P M CDT Height 156.2 cm (5' 1.5 ) 08/31/2016 7:05 PM CDT Body Mass Index 31.3 08/31/2016 7:05 PM CDT documented in this encounter Patient Instructions * Patient Instructions* Leila Meléndez NET UI DEVELOPER - 08/31/2016 6:45 PM CDT Images from the original note were not included. Corneal Abrasion WHAT YOU NEED TO KNOW: A corneal abrasion is a scratch on the cornea of your eye. The cornea is the clear layer that covers the front of your eye. A small scratch may heal in 1 to 2 days. Deeper or larger scratches may take longer to heal. DISCHARGE INSTRUCTIONS: Contact your healthcare provider if: ?? Your eye pain or vision gets worse. ?? You have yellow or green drainage from your eye. ?? You have questions or concerns about your condition or care. Medicines: ?? Medicines may be given in the form of eyedrops or ointment to help prevent an eye infection. Youmay also be given eye drops to decrease pain. Ask how to take this medicine safely. ?? Take your medicine as directed. Contact [...] of an emergency. Follow up with your healthcare provider as directed: Write down your questions so you remember to ask them during your visits. Self-care: ?? Do not touch or rub your eye. ?? Ask your healthcare provider when you can start your normal activities. ?? Ask your healthcare provider when you can wear your contact lenses. ?? Wear sunglasses in bright light until your eyes feel better. Help prevent corneal abrasions: ?? Remove your contact lenses if your eyes feel dry or irritated. ?? Wash your hands if you need to touch your eyes or your face. ?? Trim your child's fingernails so he cannot scratch his eye. ?? Wear protective eyewear when you work with chemicals, wood, dust, or metal. ?? Wear protective eyewear when you play sports. ?? Do not wear your contacts for longer than you should. ?? Do not wear colored lenses or lenses with shapes on them. These lenses may cause eye damage and vision loss. ?? Do not wear glitter makeup. Glitter can easily get into your eyes and under contact lenses. ?? Do not sleep with your contacts in your eyes. ?? 2016 [employer]. Information is for End User's use only and may not be sold, redistributed or otherwise used for commercial purposes. All illustrations and images included in CareNotes?? are the copyrighted property of [employer]. or [employer]. The above information is an individualized education plan aide only. It is not intended as medical advice for individual conditions or treatments. Talk to your doctor, nurse or pharmacist before following any medical regimen to see if it is safe and effective for you. documented in this encounter Ordered Prescriptions Prescription Sig Dispense Quantity Refills Last Filled Start Date End Date erythromycin (ILOTYCIN) ophthalmic ointment Apply to left eye 4 (four) times a day for 7 days. 3.5 g 08/31/2016 09/07/2016 documented in this encounter Progress Notes * Leila Meléndez NP - 08/31/2016 6:45 PM CDT Subjective/Objective Patient ID: Abena Giron is a 76 y.o. female. Chief Complaint Eye Trauma (left eye- ) Pt states she was moving tree limbs when a branch grazed her left eye. She denies any drainage. Sheflushed her eye with water which helped. She relays that she still have a sensation of something being in her eye. Eye Trauma The left eye is affected. This is a new problem. The current episode started today. The problem occurs constantly. The problem has been gradually worsening. The injury mechanism was a foreign body. The pain is mild. There is no known exposure to pink eye. She does not wear contacts. Associated symptoms include eye redness. Pertinent negatives include no blurred vision, eye discharge, double vision, fever, foreign body sensation, itching, nausea, photophobia, recent URI or vomiting. She has tried water for the symptoms. The treatment provided moderate relief. Review of Systems Constitutional: Negative for fever. HENT: Negative for ear pain, nosebleeds and rhinorrhea. Eyes: Positive for pain and redness. Negative for blurred vision, double vision, photophobia, discharge, itching and visual disturbance. Gastrointestinal: Negative for nausea and vomiting. Physical Exam Constitutional: She is oriented to person, place, and time. She appears well- developed and well-nourished. HENT: Head: Normocephalic and atraumatic. Eyes: Pupils are equal, round, and reactive to light. Right eye exhibits no exudate. Left eye exhibits no discharge. Foreign body present in the left eye. Left conjunctiva is not injected. Left conjunctiva has no hemorrhage. Fundoscopic exam: The left eye shows no exudate, no hemorrhage and no papilledema. Cardiovascular: Normal rate, regular rhythm and normal heart sounds. Neurological: She is alert and oriented to person, place, and time. Skin: Skin is warm. There is erythema. Redness around left eye Assessment/Plan Diagnoses and all orders for this visit: 1. Cornea abrasion, left, initial encounter Comments: small Left corneal abraison Will prescribe erythromycin Follow up with opthamalogist in 3 days. Other orders - erythromycin (ILOTYCIN) ophthalmic ointment; Apply to left eye 4 (four) times a day for 7 days. documented in this encounter Plan of Treatment Not on file documented as of this encounter Visit Diagnoses Diagnosis Cornea abrasion, left, initial encounter documented in this encounter Historical Medications * This list may reflect changes made after this encounter. lansoprazole (PREVACID) 15 mg capsule Take 15 mg by mouth daily. 07/30/2018 added in this encounter Care Teams Land Title Examiner Relationship Specialty Start Date End Date Ronald Castrejon MD PCP - General 06/21/16 07/17/22 documented as of this encounter
--- OUTSIDE RECORDS SUMMARY | 2024-04-11 06:40 | XMS_ITS | Encounter Summary ---
Author Organization [facility] Healthcare Address [address] [place] [address] Care Team Providers Care Ceiling Insulation Blower Name Role Phone Ronald Castrejon MD Primary Care Provider [phone] Encounter Details Date Type Department Care Team (Late st Contact Info) Description 02/09/2016 10:35 PM COMMUNITY SERVICE WORKER - 02/10/2016 6:08 AM COMMUNITY SERVICE WORKER Hospital Encounter [place] Tameka [place] [id number] [facility] [address] [place] [address] Dizziness and giddiness; Urinary tract infection Social History Tobacco Use Types Packs/Day Years Used Date Smoking Tobacco: Former Cigarettes Q uit: 03/24/1969 Alcohol Use Standard Drinks/Week Comments No 0 (1 standard drink = 0.6 oz pur e alcohol) Comments Unknown Sex and Gender Information Value Date Recorded Sex Assigned at Not on file Legal Sex Female 11:18 AM COMMUNITY SERVICE WORKER Gender Identity Female 10/09/2022 9:08 AM [...] Procedure Name Priority Date/Time Associated Diagnosis Comments PLASMA PROTHROMBIN TIME (PT) Routine 02/10/2016 1:20 AM COMMUNITY SERVICE WORKER PLASMA COMPREHENSIVE METABOLIC PANEL Routine 02/10/2016 1:20 AM COMMUNITY SERVICE WORKER BLOOD CELL COUNT (CBC), MORPHOLOGIC EXAM Routine 02/10/2016 1:20 AM COMMUNITY SERVICE WORKER BLOOD B-TYPE NATRIURETIC PEPTIDE (BNP) Routine 02/10/2016 1:20 [address]ITY SERVICE WORKER [address] HEAD WO CONTRAST Routine 02/10/2016 1 :02 AM COMMUNITY SERVICE WORKER URINALYSIS Routine 02/10/2016 1:00 AM COMMUNITY SERVICE WORKER XR CHEST 1 VIEW Routine 02/10/2016 12:54 AM COMMUNITY SERVICE WORKER URINE MICROBIOLOGY Routine 02/10/2016 12 :00 AM COMMUNITY SERVICE WORKER DISCHARGE LABORATORY CUMULATIVE REPORT 02/10/2016 PLASMA TROPONIN I Routine 02/09/2016 7:2 0 PM COMMUNITY SERVICE WORKER PLASMA LIPID PANEL Routine 02/09/2016 7: 20 PM COMMUNITY SERVICE WORKER ELECTROCARDIOGRAPHY (ECG) 02/09/2016 documented in this encounter Results * Blood cell count (CBC), morphologic exam (02/10/2016 1:20 AM COMMUNITY SERVICE WORKER) WBC 8.4 3.8 - 9.8 K/cumm CDR HISTORICAL RESULTS RBC 4.34 4.20 - 5.20 M/cumm CDR HISTORICAL RESULTS Hgb 13.7 12.0 - 15.0 g/dl CDR HISTORICAL RESULTS Hct 39.8 37.0 - 47.0 % CDR HISTORICAL RESULTS MCV 91.7 82.0 - 96.0 fl CDR HISTORICAL RESULTS MCH 31.6 27.0 - 32.0 pg CDR HISTORICAL RESULTS MCHC 34.4 29.0 - 35.0 g/dl CDR HISTORICAL RESULTS Platelets 291 150 - 450 K/cumm CDR HISTORICAL RESULTS RDW 41.5 36.4 - 46.3 fl CDR HISTORICAL RESULTS Rdw 12.3 11.5 - 14.5 % CDR HISTORICAL RESULTS MPV 10.2 8.6 - 12.6 fl CDR HISTORICAL RESULTS Neutrophils 55.1 42.0 - 85.0 % CDR HISTORICAL RESULTS Neutrophils, abs 4.6 2.1 - 8.5 K/cumm CDR HISTORICAL RESULTS Lymphocytes 34.4 16.0 - 52.0 % CDR HISTORICAL RESULTS Lymphocytes, abs 2.9 0.8 - 5.2 K/cumm CDR HISTORICAL RESULTS Monos 6.8 1.0 - 13.0 % CDR HISTORICAL RESULTS Monocytes, absolute 0.6 0.0 - 1.3 K/cumm CDR HISTORICAL RESULTS Eosinophils 2.7 0.0 - 7.0 % CDR HISTORICAL RESULTS Eosinophils, abs 0.2 0.0 - 0.7 K/cumm CDR HISTORICAL RESULTS Basophils 0.6 0.0 - 4.0 % CDR HISTORICAL RESULTS Basophils, abs 0.0 0.0 - 0.4 K/cumm CDR HISTORICAL RESULTS Young granulocytes, % 0.4 0.0 - 1.0 % CDR HISTORICAL RESULTS Young granulocyte 0.03 0.00 - 0.10 K/cumm CDR HISTORICAL RESULTS NRBC 0.0 0.0 - 0.2 #/100 WBC CDR HISTORICAL RESULTS NRBC, abs 0.00 0.00 - 0.01 K/cumm CDR HISTORICAL RESULTS Blood specimen (specimen) 02/10/2016 1:20 AM COMMUNITY SERVICE WORKER us Tameka Conway MD LAB BLOOD ORDERABLES Final Result Performing Organization Address [facility] Co de Phone Number CDR HISTORICAL RESULTS * (ABNORMAL) Plasma prothrombin time (PT) (02/10/2016 1:20 AM COMMUNITY SERVICE WORKER) Prothrombin time (PT) 14.4(H) 9.5 - 13.0 seconds CDR HISTORICAL RESULTS INR 1.26(H) 0.90 - 1.20 CDR HIST ORICAL RESULTS Plasma 02/10/2016 1:20 AM COMMUNITY SERVICE WORKER us Tameka Conway MD LAB BLOOD ORDERABLES Final Result Performing Organization Address [facility] de Phone Number CDR HISTORICAL RESULTS * Blood B-type natriuretic peptide (BNP) (02/10/2016 1:20 AM COMMUNITY SERVICE WORKER) BNP 81 0 - 100 pg/ml CDR HISTORICAL RESULTS Blood specimen (specimen) 02/10/2016 1:20 AM COMMUNITY SERVICE WORKER us Tameka Conway MD LAB BLOOD ORDERABLES Final Result Performing Organization Address [facility] de Phone Number CDR HISTORICAL RESULTS * (ABNORMAL) Plasma comprehensive metabolic panel (02/10/2016 1:20 AM COMMUNITY SERVICE WORKER) BUN 11 8 - 24 mg/dl CDR HISTORICAL RESULTS Glucose 111 70 - 199 mg/dl CDR HISTORICAL RESULTS Sodium 138 135 - 145 mmol/L CDR HISTORICAL RESULTS K, pl 4.2 3.5 - 5.1 mmol/L CDR HISTORICAL RESULTS Chloride 106 100 - 114 mmol/L CDR HISTORICAL RESULTS CO2 23 22 - 32 mmol/L CDR HISTORICAL RESULTS Creatinine 0.58(L) 0.60 - 1.30 mg/dl CDR HISTORICAL RESULTS AST 23 7 - 40 Units/L CDR HISTORICAL RESULTS ALT 18 1 - 45 Units/L CDR HISTORICAL RESULTS Alk phos 43 30 - 110 Units/L CDR HISTORICAL RESULTS Calcium 9.3 8.4 - 10.5 mg/dl CDR HISTORICAL RESULTS Bilirubin 0.30 0.10 - 1.30 mg/dl CDR HISTORICAL RESULTS Protein, pl 6.7 6.0 - 8.3 g/dl CDR HISTORICAL RESULTS Alb 3.9 3.2 - 4.8 g/dl CDR HISTORICAL RESULTS Globulin 2.8 2.0 - 4.3 g/dl CDR HISTORICAL RESULTS A. gap 13 8 - 16 mmol/L CDR HISTORICAL RESULTS eGFR >90 90 - 200 ml/min/1.7 3 m2 CDR HISTORICAL RESULTS Comment: If this individual is -Yemeni, multiply result by 1.21 Repeated results of less than 60 is indicative of chronic kidney disease. MDRD formula has not been validated on individuals greater than 70 years old. Plasma 02/10/2016 1:20 AM COMMUNITY SERVICE WORKER Tameka Conway MD LAB BLOOD ORDERABLES Final Result CDR HISTORICAL RESULTS * CT Head WO Contrast (02/10/2016 1:02 AM COMMUNITY SERVICE WORKER) Anatomical Region Laterality Modality Head and Neck N/A Computed Tomogra phy 02/10/2016 1:02 AM COMMUNITY SERVICE WORKER Narrative 02/10/2016 11:10 AM COMMUNITY SERVICE WORKER DATE OF EXAM: ??Feb 10 2016 ??1:02AM Acc#: ??[id number] ??ECT 0022 - CT Head WO ?? DIAGNOSIS: ??DIZZY, FALL CLINICAL HISTORY: ?? Cerebral Vascular_Cerebral Vascular RESULT: EXAMINATION: ??CT HEAD WITHOUT CONTRAST HISTORY: ??Dizziness, fall. TECHNIQUE: ??Transaxial computed tomographic images of the head were obtained without intravenous contrast. COMPARISON: ??None. FINDINGS: There is no intraaxial or extraaxial fluid collection. There is no mass effect or midline shift. Doan-white matter differentiation is maintained. Ventricles are normal in size and morphology. 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 Visualized paranasal sinuses and mastoid air cells are clear. Calvarium is intact. IMPRESSION: ? NO ACUTE INTRACRANIAL PROCESS. STAT PRELIMINARY REPORT WAS PROVIDED BY [facility]. ELECTRIC TRUCK DRIVER: ??KG2 TRANSCRIBE DATE/TIME: ??Feb 10 2016 ??9:14A RADIOLOGIST: ??ABNER ROBERTS M.D. ??READ ON: ??Feb 10 2016 ??9:07A ORDERING DR: TAMEKA CONWAY M.D. THIS DOCUMENT HAS BEEN ELECTRONICALLY SIGNED BY: ??ABNRE ROBERTS M.D. ??ON: ??Feb 10 2016 11:10A Attending: ??MAN, ??TAMEKA Requesting: ??MAN, ??TAMEKA Requesting Fax: ??[phone] Attending Fax: ??[phone] Attending ID: ??[id number] Requesting ID: ??[id number] Report To 1 ID: ?? Report To 1 Name: ??, ?? Report To 1 FAX: ??-- Report To 2 ID: ?? Report To 2 Name: ??, ?? Report To 2 FAX: ??-- NextGen Order #: ?? Procedure Note Provider, MD Rosalinda - 07/31/2016 DATE OF EXAM: Feb 10 2016 1:02AM Acc#: [id number] ECT 0022 - CT Head WO DIAGNOSIS: DIZZY, FALL CLINICAL HISTORY: Cerebral Vascular_Cerebral Vascular RESULT: EXAMINATION: CT HEAD WITHOUT CONTRAST HISTORY: Dizziness, fall. TECHNIQUE: Transaxial computed tomographic images of the head were obtained without intravenous contrast. COMPARISON: None. FINDINGS: There is no intraaxial or extraaxial fluid collection. There is no mass effect or midline shift. Doan-white matter differentiation is maintained. Ventricles are normal in size and morphology. 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 Visualized paranasal sinuses and mastoid air cells are clear. Calvarium is intact. IMPRESSION: NO ACUTE INTRACRANIAL PROCESS. STAT PRELIMINARY REPORT WAS PROVIDED BY [facility]. ELECTRIC TRUCK DRIVER: KG2 TRANSCRIBE DATE/TIME: Feb 10 2016 9:14A RADIOLOGIST: ABNER ROBERTS M.D. READ ON: Feb 10 2016 9:07A ORDERING DR: TAMEKA CONWAY M.D. THIS DOCUMENT HAS BEEN ELECTRONICALLY SIGNED BY: ABNER ROBERTS M.D. ON: Feb 10 2016 11:10A Attending: TAMEKA CONWAY Requesting: TAMEKA CONWAY Requesting Attending Attending ID: [id number] Requesting ID: [id number] Report To 1 ID: Report To 1 Name: , Report To 1 FAX: -- Report To 2 ID: Report To 2 Name: , Report To 2 FAX: -- NextGen Order #: us Historical Provider IMGerald CT PROCEDURES Final R esult * (ABNORMAL) Urinalysis (02/10/2016 1:00 AM COMMUNITY SERVICE WORKER) Color, ur Straw CDR HISTORICAL RESULTS Epithelial cells, ur 0 - 2 /hpf CDR HISTORICAL RESULTS Clarity, ur Clear Clear CDR HISTORICAL RESULTS Mucus Present CDR HISTORICAL RESULTS pH, ur 5.0 5 - 7 CDR HISTORICAL RESULTS Specific gravity, ur 1.003 1.001 - 1.033 CDR HISTORICAL RESULTS Protein, ur Negative Negative CDR HISTORICAL RESULTS Glucose, ur Negative Negative CDR HISTORICAL RESULTS Ketones, ur Negative Negative CDR HISTORICAL RESULTS Bilirubin, ur Negative Negative CDR HISTORICAL RESULTS U Blood Small(A) Negative CDR HISTORICAL RESULTS Urobilinogen, quant, ur Normal 0.2 - 1.0 mg/dl CDR HISTORICAL RESULTS Nitrites, ur Negative Negative CDR HISTORICAL RESULTS Leukocyte esterase, ur Moderate(A) Negative CDR HISTORICAL RESULTS WBC, ur 10 - 20(A) 0 - 5 /hpf CDR HISTORICAL RESULTS RBC, ur 0 - 5 0 - 5 /hpf CDR HISTORICAL RESULTS Urine 02/10/2016 1:00 AM COMMUNITY SERVICE WORKER Tameka Conway MD LAB BLOOD ORDERABLES Final Result CDR HISTORICAL RESULTS * XR Chest 1 Vw (02/10/2016 12:54 AM COMMUNITY SERVICE WORKER) Anatomical Region Laterality Modality Body, Chest N/A Radiographic Patricia ging 02/10/2016 12:5 4 AM COMMUNITY SERVICE WORKER Narrative 02/10/2016 11:19 AM COMMUNITY SERVICE WORKER DATE OF EXAM: ??Feb 10 2016 12:54AM Acc#: ??[id number] ??EDX 0031 - XR Chest Portable ?? DIAGNOSIS: ??DIZZY, FALL CLINICAL HISTORY: ?? Bcpfba-Mm_[id number]-Aj RESULT: EXAMINATION: CHEST, PORTABLE AP VIEW HISTORY: ??Shortness of breath COMPARISON: ??None FINDINGS: Heart size at the upper limits of normal. Aorta is mildly tortuous. No pneumothorax or pleural effusion. Lungs are clear. Loop recorder device superimposes the left lower thorax. Cholecystectomy clips are seen in the right upper quadrant of the abdomen. Bones appear demineralized. IMPRESSION: ? 1. NO ACUTE PULMONARY ABNORMALITY. 2. OSTEOPENIA. ELECTRIC TRUCK DRIVER: ??KG2 TRANSCRIBE DATE/TIME: ??Feb 10 2016 10:33A RADIOLOGIST: ??ABNER ROBERTS M.D. ??READ ON: ??Feb 10 2016 10:23A ORDERING DR: TAMEKA CONWAY M.D. THIS DOCUMENT HAS BEEN ELECTRONICALLY SIGNED BY: ??ABNER ROBERTS M.D. ??ON: ??Feb 10 2016 11:19A Attending: ??MAN, ??TAMEKA Requesting: ??MAN, ??TAMEKA Requesting Fax: ??[phone] Attending Fax: ??[phone] Attending ID: ??[id number] Requesting ID: ??[id number] Report To 1 ID: ?? Report To 1 Name: ??, ?? Report To 1 FAX: ??-- Report To 2 ID: ?? Report To 2 Name: ??, ?? Report To 2 FAX: ??-- NextGen Order #: ?? Procedure Note Provider, MD Rosalinda - 07/31/2016 DATE OF EXAM: Feb 10 2016 12:54AM Acc#: [id number] EDX 0031 - XR Chest Portable DIAGNOSIS: DIZZY, FALL CLINICAL HISTORY: Ccpbat-Cn_Whpkwi-Ni RESULT: EXAMINATION: CHEST, PORTABLE AP VIEW HISTORY: Shortness of breath COMPARISON: None FINDINGS: Heart size at the upper limits of normal. Aorta is mildly tortuous. No pneumothorax or pleural effusion. Lungs are clear. Loop recorder device superimposes the left lower thorax. Cholecystectomy clips are seen in the right upper quadrant of the abdomen. Bones appear demineralized. IMPRESSION: 1. NO ACUTE PULMONARY ABNORMALITY. 2. OSTEOPENIA. ELECTRIC TRUCK DRIVER: KG2 TRANSCRIBE DATE/TIME: Feb 10 2016 10:33A RADIOLOGIST: ABNER ROBERTS M.D. READ ON: Feb 10 2016 10:23A ORDERING DR: TAMEKA CONWAY M.D. THIS DOCUMENT HAS BEEN ELECTRONICALLY SIGNED BY: ABNER ROBERTS M.D. ON: Feb 10 2016 11:19A Attending: TAMEKA CONWAY Requesting: TAMEKA CONWAY Requesting Attending Attending ID: [id number] Requesting ID: [id number] Report To 1 ID: Report To 1 Name: , Report To 1 FAX: -- Report To 2 ID: Report To 2 Name: , Report To 2 FAX: -- NextGen Order #: Historical Provider IMGerald XR PROCEDURES Final R esult * DISCHARGE LABORATORY CUMULATIVE REPORT (02/10/2016) Narrative 02/10/2016 Ordered by an unspecified provider. Historical Provider LAB BLOOD ORDERABLES Roshni l Result * Urine Microbiology (02/10/2016 12:00 AM COMMUNITY SERVICE WORKER) 02/10/2016 Narrative [facility] HISTORICAL RESULTS - 02/11/2016 1:54 PM COMMUNITY SERVICE WORKER [facility] ?Patient Name: ?ABENA HALL ?Med. Rec#: ?? [id number] ?Pt. Acct.#: ??[id number] ?Birthdate: ?? 1940 ?Age / Sex: ?? 75Y / F ?Location: ?[facility] (Emergenc ?Admit Date: ??02/09/2016 ?Discharge Date: ? 02/10/2016 ?Doctor: ?Tameka Conway ?Patient Type: ?[facility] Emergency Room 2 Culture, Urine ? Collected: 02/10/2016 01:00 Specimen: Urine ?? Specimen Source: Clean Voided Specimen Status: Final ??Last Update: 02/11/2016 12:32 Organism ?? Less than 10,000 cfu/ml of ?? multiple Gram positive organisms Comment ? This culture result is consistent with contamination ?? by normal genital-perineal marco. Historical Provider MD LAB MICROBIOLOGY - GENERA L ORDERABLES Final Result Performing Organization Address [facility] de Phone Number CDR HISTORICAL RESULTS * (ABNORMAL) Plasma troponin I (02/09/2016 7:20 PM COMMUNITY SERVICE WORKER) Troponin I 0.19(H) 0.00 - 0.14 ng/ml CDR HISTORICAL RESULTS Comment: Troponin Reference Ranges: Normal: ?0.00 - 0.14 ng/mL Indeterminate: ?0.15 - 0.50 ng/mL HI / Cardiac Muscle Damage: ?>0.50 ng/mL Plasma 02/09/2016 7:20 PM COMMUNITY SERVICE WORKER Narrative CDR HISTORICAL RESULTS - 02/09/2016 7:48 PM COMMUNITY SERVICE WORKER Lipid Panel has been ordered. Tameka Conway MD LAB BLOOD ORDERABLES Final Result Performing Organization Address [facility] de Phone Number CDR HISTORICAL RESULTS * (ABNORMAL) Plasma lipid panel (02/09/2016 7:20 PM COMMUNITY SERVICE WORKER) Cholesterol 207(H) 100 - 200 mg/dl CDR HISTORICAL RESULTS Triglycerides 94 10 - 150 mg/dl CDR HISTORICAL RESULTS HDL 34(L) 40 - 59 mg/dl CDR HISTORICAL RESULTS LDL 154(H) 60 - 129 mg/dl CDR HISTORICAL RESULTS Plasma 02/09/2016 7:20 PM COMMUNITY SERVICE WORKER Narrative CDR HISTORICAL RESULTS - 02/09/2016 8:09 PM COMMUNITY SERVICE WORKER This lipid panel was automatically ordered due to an abnormal Troponin-I. The dietary status of the patient at the collection time should be correlated with the lipid results. Tameka Conway MD LAB BLOOD ORDERABLES Final Result CDR HISTORICAL RESULTS * ELECTROCARDIOGRAPHY (ECG) (02/09/2016) Narrative 02/09/2016 Ordered by an unspecified provider. Historical Provider ECG ORDERABLES Final Res ult documented in this encounter Visit Diagnoses Diagnosis Dizziness and giddiness Urinary tract infection Urinary tract infection, site not specified documented in this encounter Care Teams Ceiling Insulation Blower Relationship Specialty Start Date End Date Ronald Castrejon MD PCP - General 03/31/13 05/28/16 documented as of this encounter
--- OUTSIDE RECORDS SUMMARY | 2024-04-11 06:40 | XMS_ITS | Encounter Summary ---
Author Organization [facility] Address [address] [place] [address] Care Team Providers Care Process Mold Technician Name Role Phone Ronald Castrejon MD Primary Care Provider [phone] Encounter Details Date Type Department Care Team (Late st Contact Info) Description 06/19/2017 Telephone [facility] [address] [facility] [address] [place] [address] Ronald Castrejon MD [address] [place] [address] [address] [place] [address] Social History Tobacco Use Types Packs/Day Years Used Date Smoking Tobacco: Former Smokeless Tobacco: Never Alcohol Use Standard Drinks/Week Comments No 0 (1 standard drink = 0.6 oz pur e alcohol) Comments Unknown Sex and Gender Information Value Date Recorded Sex Assigned at Not on file Legal Sex Female 11:18 AM MINE WIRER Gender Identity Female 10/09/2022 9:08 AM CDT Sexual Orientation Choose not to disclose 2022 9:08 AM CDT documented as of this encounter Miscellaneous Notes * Telephone Encounter - Fatimah Grant - 06/26/2017 2:44 PM CDT . documented in this encounter Plan of Treatment Not on file documented as of this encounter Visit Diagnoses Not on filedocumented in this encounter Care Teams Process Mold Technician Relationship Specialty Start Date End Date Ronald Catsrejon MD PCP - General 06/21/16 07/17/22 documented as of this encounter
--- OUTSIDE RECORDS SUMMARY | 2024-04-11 06:40 | XMS_ITS | Encounter Summary ---
Author Organization [facility] Medical Group Address [address] [place] [address] Care Team Providers Care It Technical Specialist Name Role Phone Ronald Castrejon MD Primary Care Provider [phone] Reason for Visit * Reason Comments Medicare Wellness subsequent Earache left Sore Throat left side Encounter Details Date Type Department Care Team (Late st Contact Info) Description 06/24/2017 2:00 PM CDT Office Visit [facility] [address] [place] [address] [address] [place] [address] Ronald Castrejon MD [address] [place] [address] Medicare annual wellness visit, subsequent (Primary Dx); BMI 30.0-30.9,adult; Essential hypertension; 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; Paroxysmal atrial fibrillation (CMS/HCC); Chronic GERD; Abdominal aortic aneurysm (AAA) without rupture (CMS/HCC); Generalized anxiety disorder Social History Tobacco Use Types Packs/Day Years Used Date Smoking Tobacco: Former Smokeless Tobacco: Never Alcohol Use Standard Drinks/Week Comments No 0 (1 standard drink = 0.6 oz pur e alcohol) Comments Unknown Sex and Gender Information Value Date Recorded Sex Assigned at Not on file Legal Sex Female 11:18 AM SUMMER SCHOOL 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 Gender Identity Female 10/09/2022 9:08 AM CDT Sexual Orientation Choose not to disclose 2022 9:08 AM CDT documented as of this encounter Last Filed Vital Signs Vital Sign Reading Time Taken Comments Blood Pressure 142/100 06/24/2017 2:01 PM CDT Pulse 60 06/24/2017 2:01 PM CDT Temperature 37.2 ??C (99 ??F) 06/24/2017 2:01 PM CDT Respiratory Rate 20 06/24/2017 2:01 PM CDT Oxygen Saturation - - Inhaled Oxygen Concentration - - Weight 72.6 kg (160 lb) 06/24/2017 2:01 PM CDT Height 154.9 cm (5' 1 ) 06/24/2017 2:01 PM CDT Body Mass Index 30.23 06/24/2017 2:01 PM CDT documented in this encounter Progress Notes * Ronald Castrejon MD - 06/24/2017 2:00 PM CDT Subjective/Objective Patient ID: Abena Giron is a 77 y.o. female. Chief Complaint Medicare Wellness (subsequent); Earache (left); and Sore Throat (left side) HPI 77-year-old white the female seen today for follow-up well examination she has little bit of a sorethroat left ear ache been gone for couple days not the severe no fever chills no problems that she knows of on a chronic basis. She quit smoking 1974 she has a colonoscopy scheduled for August 18 thisyear at [facility] with Dr. Edmondson she follows up with her plasterer foreman Dr. urmila Centeno on a regular basis for her history of atrial fib status post [facility] despite her history of coronary artery disease she refuses statin therapy she follows up with [facility] every6 months patient refuses all vaccines she refuses blood pressure medications since her blood pressure is elevated today and she understands that with high blood pressure she increased risk of strokesheart attacks reason kidney failure she states she feels well and she states when she gets home sure blood pressure is always better than it is here she refuses mammography states she is not going toget done toe after she gets her loop recorder taken out by Dr. urmila Centeno Immunization refuses all immunizations risk benefits of vaccines were discussed with her at length she still refuses Allergies codeine may cause a rash penicillin causes a rash tobacco none since 1974 alcohol none Medical surgical coronary disease with stent placement x1 atrial fib with a history of [place] January 2016 loop recorder implanted October 2015 previous cholecystectomy hyperlipidemia hypertension obesity anxiety vitamin-D deficiency abdominal aortic aneurysm Review of Systems Review of Systems neurological [...] suicide ideation hematological no bleeding or bruising Patient states she discussed her abdominal aortic aneurysm with Cardiology they told her there is nothing to be concerned about in regards to her upcoming colonoscopy Vitals: 06/24/17 1401 BP: 142/100 BP Location: Left arm Patient Position: Sitting Pulse: 60 Resp: 20 Temp: 37.2 ??C (99 ??F) TempSrc: Oral Weight: 72.6 kg (160 lb) Height: 154.9 cm (5' 1 ) [...] Medicare annual wellness visit, subsequent (Primary) BMI 30.0-30.9,adult Essential hypertension 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 Paroxysmal atrial fibrillation (CMS/HCC) Chronic GERD Will see the patient back in 6 months vitamin-D level BMP will be checked before she comes in she changes mind about vaccines she will let us know she changes mind about aspirin and Lipitor therapy she will let us know she changes mind about blood pressure treatment she will let me know patient wasencouraged to stop her blood thinner 24 hr before her colonoscopy and then resume it per GI recommendations depending on findings on colonoscopy she states she become more compliant with vitamin-D therapy recommend vitamin D3 1002 1000 daily she has no problems activities of daily living her healthrisk assessment documented electronic medical record Side effects, risks, interactions reviewed with patient. 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
--- OUTSIDE RECORDS SUMMARY | 2024-04-11 06:40 | XMS_ITS | Encounter Summary ---
Author Organization [facility] Medical Group Address [address] [place] [address] Care Team Providers Care Reaming Machine Operator For Plastic Name Role Phone Ronald Castrejon MD Primary Care Provider [phone] Encounter Details Date Type Department Care Team (Late Contact Info) Description 06/19/2017 Documentation [facility] 2 [facility] [address] [place] [address] Ronald Castrejon MD [address] [place] [address] [address] [place] [address] Social History Tobacco Use Types Packs/Day Years Used Date Smoking Tobacco: Former Smokeless Tobacco: Never Alcohol Use Standard Drinks/Week Comments No 0 (1 standard drink = 0.6 oz pur e alcohol) Comments Unknown Sex and Gender Information Value Date Recorded Sex Assigned at Not on file Legal Sex Female 11:18 AM ATLASSIAN ADMINISTRATOR Gender Identity Female 10/09/2022 9:08 AM CDT Sexual Orientation Choose not to disclose 2022 9:08 AM CDT documented as of this encounter Progress Notes * Fatimah Grant - 06/19/2017 10:29 AM CDT 06/19/17 - I received a call from Citlaly at [facility] regarding Ms Mack. They needed results from aortic us. We did not order this so I called the pt and got her verbal ok to fax to [facility] dh documented in this encounter Plan of Treatment Not on file documented as of this encounter Visit Diagnoses Not on filedocumented in this encounter Care Teams Reaming Machine Operator For Plastic Relationship Specialty Start Date End Date Ronald Castrejon MD PCP - General 06/21/16 07/17/22 documented as of this encounter
--- OUTSIDE RECORDS SUMMARY | 2024-04-11 06:40 | XMS_ITS | Encounter Summary ---
Author Organization [facility] Medical Group Address [address] [place] [address] Care Team Providers Care Weight Analyst Name Role Phone Ronald Castrejon MD Primary Care Provider [phone] Encounter Details Date Type Department Care Team (Late st Contact Info) Description 03/19/2017 Telephone [facility] 2 [facility] [address] [place] [address] Ronald Castrejon MD [address] [place] [address] [address] [place] [address] Social History Tobacco Use Types Packs/Day Years Used Date Smoking Tobacco: Former Smokeless Tobacco: Never Alcohol Use Standard Drinks/Week Comments No 0 (1 standard drink = 0.6 oz pur e alcohol) Comments Unknown Sex and Gender Information Value Date Recorded Sex Assigned at Not on file Legal Sex Female 11:18 AM X RAY EQUIPMENT MECHANIC Gender Identity Female 10/09/2022 9:08 AM CDT Sexual Orientation Choose not to disclose 2022 9:08 AM CDT documented as of this encounter Miscellaneous Notes * Telephone Encounter - Nasrin Olsen MA - 03/21/2017 12:16 PM CST Pt aware X RAY EQUIPMENT MECHANIC * Telephone Encounter - Ronald Castrejon MD - 03/21/2017 11:16 AM CST Z-Robbie will be refilled X RAY EQUIPMENT MECHANIC * Telephone Encounter - Nasrin Olsen MA - 03/21/2017 9:29 AM CST JR X RAY EQUIPMENT MECHANIC * Telephone Encounter - Michael Gordon - 03/21/2017 9:27 AM CST Pt declining the doxycycline, states she has never tried before and does not want to find out if she is allergic to it like every other med, pt demands a refill of the zpac, please advise X RAY EQUIPMENT MECHANIC * Telephone Encounter - Siobhan Sterling MA - 03/19/2017 6:57 PM CST Pt is aware X RAY EQUIPMENT MECHANIC * Telephone Encounter - Ronald Castrejon MD - 03/19/2017 5:16 PM CST New antibiotics sent to jaycee Partida X RAY EQUIPMENT MECHANIC * Telephone Encounter - Siobhan Sterling MA - 03/19/2017 4:12 PM CST See message from pt. Thank you X RAY EQUIPMENT MECHANIC * Telephone Encounter - Judy Salmeron - 03/19/2017 2:19 PM CST Pt saw 03/12 and was prescribed zpak. She has completed the antibiotic but still complains of cough, weakness, no appetite, and fatigue. Pt declined appt and wanted a note sent to jr to see if he would make an exception and send in another antibiotic. Please advise [phone] Jaycee hendrix X RAY EQUIPMENT MECHANIC documented in this encounter Plan of Treatment Not on file documented as of this encounter Visit Diagnoses Not on filedocumented in this encounter Care Teams Weight Analyst Relationship Specialty Start Date End Date Ronald Castrejon MD PCP - General 06/21/16 07/17/22 documented as of this encounter
--- OUTSIDE RECORDS SUMMARY | 2024-04-11 06:40 | XMS_ITS | Encounter Summary ---
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; Essential hypertension; Paroxysmal atrial fibrillation (CMS/HCC); Chronic GERD; Colon cancer screening Social History Tobacco Use Types Packs/Day Years Used Date Smoking Tobacco: Former Cigarettes Q uit: 03/24/1969 Alcohol Use Standard Drinks/Week Comments No 0 (1 standard drink = 0.6 oz pur e alcohol) Comments Unknown Sex and Gender Information Value Date Recorded Sex Assigned at Not on file Legal 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 Gender Identity Female 10/09/2022 9:08 AM CDT Sexual Orientation Choose not to disclose 2022 9:08 AM CDT documented as of this encounter Last Filed Vital Signs Vital Sign Reading Time Taken Comments Blood Pressure 142/82 12/25/2016 9:48 AM CDT Pulse 82 12/25/2016 9:48 AM CDT Temperature - - Respiratory Rate 16 12/25/2016 9:48 AM CDT Oxygen Saturation - - Inhaled Oxygen Concentration - - Weight 75.6 kg (166 lb 11.2 oz) 12/25/2016 9:48 AM CDT Height 156.2 cm (5' 1.5 ) 12/25/2016 9:48 AM CDT Body Mass Index 30.99 12/25/2016 9:48 AM CDT documented in this encounter Progress Notes * Ronald Castrejon MD - 12/25/2016 10:00 AM CDT Subjective/Objective Patient ID: Abena Giron is a 76 y.o. female. Chief Complaint Follow-up (CAD) HPI 76-year-old white female seen today for 6 month follow-up she was seen for well examination May 2016 she states she feels good no complaints she had history of coronary disease status post stent placement in 2013 she follows up with Cardiology on a regular basis Dr. Hicks is her motor boss herelocally Dr. urmila Centeno is her reed man at [facility] and she has had aloop recorder for about a year now she underwent atrial fibrillation [place] in December 2015 she does have a history of coronary artery disease but despite that refuses statin therapy he is goingto have cataract surgery in both eyes next month December 2015 is when she had her atrial fib cardiac [place] Past medical history immunizations patient refuses all immunizations including flu pneumonia tetanus shingles allergies codeine may cause a rash penicillin may cause a rash medical surgical coronary disease with stent placement once the atrial fib with [place] January 2016 loop recorder implanted October 2015 previous cholecystectomy hyperlipidemia hypertension obesity anxiety vitamin-D deficiency health maintenance patient is due for mammogram she states she is going to get that done she does do self-breast examination monthly and she understands she do a mammogram yearly she should get a bone density every 2 years Family social history of start taking care this patient 2013 the patient is 6 grown kids does not smoke cigarettes does drinking alcohol Review of Systems patient understands she is putting herself at risk for night taking a statin therapy in lieu of her documented coronary artery disease Vitals: 12/25/16 0948 BP: 142/82 BP Location: Left arm Patient Position: Sitting Pulse: 82 Resp: 16 Weight: 75.6 kg (166 lb 11.2 oz) Height: 156.2 cm (5' 1.5 ) Physical Exam The head is normocephalic and atraumatic pupils are round react light accommodation EOMI fundi in TMs normal tongue uvula is midline the neck is supple bruits adenopathy masses or JVD there is no thyromegaly or nodules cardiovascular S1-S2 without murmurs gallops clicks or rubs thorax clear to a and P no rales rhonchi wheezes abdomen soft nontender no enlargement of liver spleen Assessment/Plan Diagnoses and all orders for this visit: 1. BMI 30.0-30.9,adult (Primary) 2. 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 Essential hypertension 4. Paroxysmal atrial fibrillation (CMS/HCC) 5. Chronic GERD 6. Colon cancer screening - Stool DNA - Cologuard; Future Patient does not wish to have any further colonoscopies done she does do the agreeable do a stool DNA testing should do that every 3 years until she reaches the age of 85 Side effects, risks, interactions reviewed with patient. 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 Essential hypertension Unspecified essential hypertension Paroxysmal atrial fibrillation (CMS/HCC) (HCC) Atrial fibrillation Chronic GERD Colon cancer screening Special screening for malignant neoplasms, colon documented in this encounter Discontinued Medications Medication Sig Discontinue Reason Start Date End Da te LORazepam (ATIVAN) 0.5 mg tablet take 1 Tablet by oral route 3 times every day as needed 03/23/2015 12/25/2016 loratadine (CLARITIN) 10 mg tablet take 1 tablet by oral route every day 01/24/2016 12/25/2016 colchicine (COLCRYS) 0.6 mg tablet take 1 Tablet by ORAL route 2 times every day 03/01/2016 12/25/2016 albuterol HFA (PROAIR HFA) 90 mcg/actuation inhaler inhale 2 puff by inhalation route every 4 - 6 hours as needed 03/27/2016 12/25/2016 documented as of this encounter Historical Medications * This list may reflect changes made after this encounter. Medication Sig Dispense Quantity Refills Last Filled Start D ate End Date ALPRAZolam (XANAX) 0.5 mg tablet 10/10/2016 12/23/2017 added in this encounter Care Teams Floatlight Powder Mixer Relationship Specialty Start Date End Date Ronald Castrejon MD PCP - General 06/21/16 07/17/22 documented as of this encounter
--- OUTSIDE RECORDS SUMMARY | 2024-04-11 06:40 | XMS_ITS | Encounter Summary ---
Author Organization [facility] Medical Group Address [address] [place] [address] Care Team Providers Care Labor Specialist Name Role Phone Ronald Castrejon MD Primary Care Provider [phone] Encounter Details Date Type Department Care Team (Late st Contact Info) Description 03/19/2017 Orders Only [facility] [address] 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 20 tablet/capsule 03/19/2017 03/29/2017 documented in this encounter Plan of Treatment Not on file documented as of this encounter Visit Diagnoses Not on filedocumented in this encounter Care Teams Labor Specialist Relationship Specialty Start Date End Date Ronald Castrejon MD PCP - General 06/21/16 07/17/22 documented as of this encounter
--- OUTSIDE RECORDS SUMMARY | 2024-04-11 06:40 | XMS_ITS | Encounter Summary ---
Author Organization [facility] Healthcare Address [address] [place] [address] Care Team Providers Care Organ Tuner Electronic Name Role Phone Ronald Castrejon MD Primary Care Provider [phone] Encounter Details Date Type Department Care Team (Late st Contact Info) Description 05/29/2016 9:36 AM ADVERTISING DISPATCH CLERKS SUPERVISOR - 05/29/2016 11:59 PM ADVERTISING DISPATCH CLERKS SUPERVISOR Hospital Encounter [facility] Ronald Castrejon MD [address] [place] [address] Discharge Disposition: Discharge to home or self care Social History Tobacco Use Types Packs/Day Years Used Date Smoking Tobacco: Former Cigarettes Q uit: 03/24/1969 Alcohol Use Standard Drinks/Week Comments No 0 (1 standard drink = 0.6 oz pur e alcohol) Comments Unknown Sex and Gender Information Value Date Recorded Sex Assigned at Not on file Legal Sex Female 11:18 AM ADVERTISING DISPATCH CLERKS SUPERVISOR Gender Identity Female 10/09/2022 9:08 AM [...] as needed 1 Inhaler 0 03/27/2016 7 apixaban (ELIQUIS) 5 mg tablet take 1 [...] on filedocumented in this encounter Care Teams Organ Tuner Electronic Relationship Specialty Start Date End Date Ronald Castrejon MD PCP - General 05/29/16 06/20/16 documented as of this encounter
--- OUTSIDE RECORDS SUMMARY | 2024-04-11 06:40 | XMS_ITS | Encounter Summary ---
Author Organization [facility] Medical Group Address [address] [place] [address] Care Team Providers Care Bed Worker Name Role Phone Ronald Castrejon MD Primary Care Provider [phone] Encounter Details Date Type Department Care Team (Late st Contact Info) Description 06/02/2017 8:15 AM CDT [facility] Internal Medicine [address] [place] [address] Hyperlipidemia, unspecified hyperlipidemia type Social History Tobacco Use Types Packs/Day Years Used Date Smoking Tobacco: Former Smokeless Tobacco: Never Alcohol Use Standard Drinks/Week Comments No 0 (1 standard drink = 0.6 oz pur e alcohol) Comments Unknown Sex and Gender Information Value Date Recorded Sex Assigned at Not on file Legal Sex Female 11:18 AM TEST MAN Gender Identity Female 10/09/2022 9:08 AM CDT Sexual Orientation Choose not to disclose 2022 9:08 AM CDT documented as of this encounter Plan of Treatment Not on file documented as of this encounter Visit Diagnoses Diagnosis Hyperlipidemia, unspecified hyperlipidemia type documented in this encounter Care Teams Bed Worker Relationship Specialty Start Date End Date Ronald Castrejon MD PCP - General 06/21/16 07/17/22 documented as of this encounter
--- OUTSIDE RECORDS SUMMARY | 2024-04-11 06:41 | XMS_ITS | Encounter Summary ---
Author Organization [facility] Healthcare Address [address] [place] [address] Care Team Providers Care Property Worker Name Role Phone Ronald Castrejon MD Primary Care Provider [phone] Encounter Details Date Type Department Care Team (Late st Contact Info) Description 11/06/2012 1:20 PM CDT - 11/06/2012 11:59 PM CDT Hospital Encounter [facility] Ruthann Zavala MD [facility] [place] [address] Other screening mammogram; Screening for osteoporosis; Asymptomatic postmenopausal status; Need for prophylactic hormone replacement therapy (postmenopausal) Social History Tobacco Use Types Packs/Day Years Used Date Smoking Tobacco: Former Cigarettes Q uit: 03/24/1969 Alcohol Use Standard Drinks/Week Comments Yes 0 (1 standard drink = 0.6 oz pur e alcohol) Comments Unknown Sex and Gender Information Value Date Recorded Sex Assigned at Not on file Legal Sex Female 11:18 AM PLANT ENGINEERING SUPERVISOR Gender Identity Female 10/09/2022 9:08 AM CDT Sexual Orientation Choose not to disclose 2022 9:08 AM CDT documented as of this encounter Plan of Treatment Not on file documented as of this encounter Procedures Procedure Name Priority Date/Time Associated Diagnosis Comments DEXA AXIAL SKELETON BONE DENSITY 1 OR MORE SITES Routine 11/06/2012 1:58 PM CDT DIGITAL MAMMOGRAPHY Routine 11/06/2012 1 :45 PM CDT documented in this encounter Results * Dexa Axial Skeleton Bone Density 1 or 2 Site (11/06/2012 1:58 PM CDT) Anatomical Region Laterality Modality Body N/A Radiographic Patricia ging 11/06/2012 1:58 PM CDT Narrative 11/06/2012 10:38 PM CDT Vrl DEXA Bone Density Axial ??Acc#: ??[id number] DATE OF EXAM: ??Nov 06 2012 CLINICAL HISTORY: 72 year old postmenopausal female who states a history of hormone replacement therapy, vitamin D and calcium. RESULT: DXA LEFT HIP RESULTS SUMMARY: BMD (g/cm'b2) T-score ??Z-score Neck 0.644 ??-1.8 ??0.1 Total 0.815 ??-1.0 ??0.6 DXA L-SPINE RESULTS SUMMARY: BMD (g/cm'b2) T-score ??Z-score L1 0.978 ??-0.1 ??1.9 L2 1.007 ??-0.2 ??2.0 L3 0.949 ??-1.2 ??1.1 L4 1.084 ??0.2 ??2.6 Total 1.006 ??-0.4 ??1.9 IMPRESSION: 1. BONE MINERAL DENSITY OF THE LUMBAR SPINE IS WITHIN NORMAL LIMITS. 2. BONE MINERAL DENSITY OF THE LEFT FEMORAL NECK IS MILDLY DECREASED AND INDICATIVE OF OSTEOPENIA BY WORLD HE[employer]GANIZATION CRITERIA. COMMENT: W.H.O. defines the T-score of between -1 and -2.5 as osteopenia, the level at which there may be an increased risk of developing osteoporosis and fractures in the future. ??Osteoporosis is defined as T-score lower than -2.5 (significantly increased risk of fracture due to osteoporosis). ??T-score is a comparison to peak bone mineral density of young adult reference population. ??Z-score is a comparison to bone mineral density of sex and age group population. Interpreting Physician: ??DR JAVAN MCKEON M.D. ??Read on: ??Nov 06 2012 2:33P Transcribed by: ??LASHAE ??On: Nov 06 2012 ??3:57P Approved Electronically by: ??MIKE Laird, DR EDOUARD ??on: ??Nov 06 2012 10:38P Ordering MAGGIE ARELLANO Attending MAGGIE ARELLANO Procedure Note Provider, MD Rosalinda - 07/15/2016 [facility] DEXA Bone Density Axial Acc#: [id number] DATE OF EXAM: Nov 06 2012 CLINICAL HISTORY: 72 year old postmenopausal female who states a history of hormonereplacement therapy, vitamin D and calcium. RESULT: DXA LEFT HIP RESULTS SUMMARY: BMD (g/cm'b2) T-score Z-score Neck 0.644 -1.8 0.1 Total 0.815 -1.00.6 DXA L-SPINE RESULTS SUMMARY: BMD (g/cm'b2) T-score Z-score L1 0.978 -0.1 1.9 L2 1.007 -0.2 2.0 L30.949 -1.2 1.1 L4 1.084 0.2 2.6 Total 1.006 -0.4 1.9 IMPRESSION: 1. BONE MINERAL DENSITY OF THE LUMBAR SPINE IS WITHIN NORMAL LIMITS. 2. BONE MINERAL DENSITY OF THE LEFT FEMORAL NECK IS MILDLY DECREASED ANDINDICATIVE OF OSTEOPENIA BY WOR[employer]GANIZATION CRITERIA. COMMENT: W.H.O. defines the T-score of between -1 and -2.5 as osteopenia, thelevel at which there may be an increased risk of developing osteoporosisand fractures in the future. Osteoporosis is defined as T-score lowerthan -2.5 (significantly increased risk of fracture due to osteoporosis).T-score is a comparison to peak bone mineral density of young adultreference population. Z-score is a comparison to bone mineral density ofsex and age group population. Interpreting Physician: DR JAVAN MCKEON M.D. Read on: Nov 06 20122:33P Transcribed by: LASHAE On: Nov 06 2012 3:57P Approved Electronically by: MIKE Laird, DR EDOUARD on: Nov 06 201210:38P Ordering MAGGIE ARELLANO Attending : RUTHANN ARELLANO us Historical Provider MD [facility]O DXA PROCEDURES Final Result * DIGITAL MAMMOGRAPHY (11/06/2012 1:45 PM CDT) Anatomical Region Laterality Modality Breast Mammography 11/06/2012 1:45 PM CDT Narrative 11/06/2012 11:28 PM CDT CC: ??DR EZEKIEL SANTOS Screening Mamm Bi ??Acc#: ??[id number] DATE OF EXAM: ??Nov 06 2012 CLINICAL HISTORY: Screening. Performed by: cd RESULT: Superior-inferior and lateral oblique views of each breast were obtained and compared to a prior examination of 10/19/96. ?? There has been little change. ??The breasts are composed primarily of fatty tissue. ??There are a number of calcifications some of which are in the skin. ??Arteriosclerotic plaques are present within the arteries of the breasts. Only a mild amount of fibroglandular tissue is present with this appearing quite similar to the prior study. Digital technology was employed plus computer-aided detection software (R2) was utilized in interpretation of these images. ??This facility utilizes a reminder system to notify patients of yearly mammograms. IMPRESSION: UNCHANGED APPEARANCE OF MAMMOGRAM WITH NO NEOPLASM SEEN. BI-RADS CATEGORY 2 - BENIGN FINDINGS Interpreting Physician: ??MARIA G POST M.D. ??Read on: ??Nov 06 2012 1:45P Transcribed by: ??[facility] ??On: Nov 06 2012 ??3:33P Approved Electronically by: ??MARIA G POST M.D. ??on: ??Nov 06 2012 11:28P Ordering : RUTHANN ARELLANO Attending MAGGIE ARELLANO Procedure Note Provider, Rosalinda, - 07/15/2016 CC: DR EZEKIEL SANTOS Screening Mamm Bi Acc#: [id number] DATE OF EXAM: Nov 06 2012 CLINICAL HISTORY: Screening. Performed by: cd RESULT: Superior-inferior and lateral oblique views of each breast were obtainedand compared to a prior examination of 10/19/96. There has been littlechange. The breasts are composed primarily of fatty tissue. There are anumber of calcifications some of which are in the skin. Arterioscleroticplaques are present within the arteries of the breasts. Only a mild amountof fibroglandular tissue is present with this appearing quite similar tothe prior study. Digital technology was employed plus computer-aideddetection software (R2) was utilized in interpretation of these images.This facility utilizes a reminder system to notify patients of yearlymammograms. IMPRESSION: UNCHANGED APPEARANCE OF MAMMOGRAM WITH NO NEOPLASM SEEN. BI-RADS CATEGORY2 - BENIGN FINDINGS Interpreting Physician: MARIA G POST M.D. Read on: Nov 06 20121:45P Transcribed by: pk On: Nov 06 2012 3:33P Approved Electronically by: MARIA G POST M.D. on: Nov 06 201211:28P Ordering DR: RUTHANN ARELLANO Attending DR: RUTHANN ARELLANO us Historical Provider MD [facility] MAMMO PROCEDURES Roshni l Result documented in this encounter Visit Diagnoses Diagnosis Other screening mammogram Screening for osteoporosis Special screening for osteoporosis Asymptomatic postmenopausal status Need for prophylactic hormone replacement therapy (postmenopausal) documented in this encounter Care Teams Property Worker Relationship Specialty Start Date End Date Ronald Castrejon MD PCP - General 07/22/12 01/17/13 documented as of this encounter
--- OUTSIDE RECORDS SUMMARY | 2024-04-11 06:41 | XMS_ITS | Encounter Summary ---
Author Organization [facility] Healthcare Address [address] [place] [address] Care Team Providers Care Uniformer Name Role Phone Ryan Castrejon MD Primary Care Provider [phone] Encounter Details Date Type Department Care Team (Late st Contact Info) Description 01/05/2014 12:31 PM CDT - 01/05/2014 6:05 PM CDT Hospital Encounter [facility] Germain Anaya MD [address] [place] [id number] Other chest pain Social History Tobacco Use Types Packs/Day Years Used Date Smoking Tobacco: Former Cigarettes Q uit: 03/24/1969 Alcohol Use Standard Drinks/Week Comments No 0 (1 standard drink = 0.6 oz pur e alcohol) Comments Unknown Sex and Gender Information Value Date Recorded Sex Assigned at Not on file 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 F.A.C.C. Disch. Date: 01/05/2014 Date of consultation: 01/05/2014. REASON FOR CONSULTATION: Chest pain - assess the need for another heart catheterization. HISTORY OF PRESENT ILLNESS: The patient is a pleasant 73-year-old female who was just seen by me about a week ago. At that time, she had a cardiac catheterization showing a widely patent stent in the mid to distal circumflex. She had some spasm in the ostial to proximal RCA. She was sent home on Imdur 30 mg p.o. q day. I discussed the findings with Dr. Scherer. We looked at nuclear images and they did not show any ischemia in the RCA territory. Thus, the possibility of spasm was being treated with Imdur. She tolerated the Imdur quite well. She did have an episode of sharp burning pain on the right side of the chest last night. It went straight through to the back. It was of sudden onset while she was watching TV. She has not had any exertional chest pain or shortness of breath. She had another episode similar to the one from last night when she presented this morning. Each time it lasted for a few minutes. The EKG was unremarkable and cardiac enzymes so far have been normal. PHYSICAL EXAMINATION: Physical examination is as follows. Blood pressure 130/60, pulse of 60 per minute and regular. The patient is afebrile. In general, the patient is a mild to moderately overweight female who is pleasant, alert and oriented x 3. She denies any chest pain. There is slight tenderness to palpation in the right mid chest area where she had the pain earlier. LUNGS: Good and equal airway exchange bilaterally. They are clear to auscultation bilaterally. HEART: Regular without any murmurs, gallops or rubs. EXTREMITIES: No pedal edema. No focal weakness. EKG: Sinus bradycardia at 55 beats per minute with a leftward axis. Inferior T wave changes. No acute changes. ASSESSMENT AND PLAN: This is a 73-year-old female with somewhat atypical chest pain in that it was occurring at rest and was of sudden onset. She has actually done reasonably well on Imdur 30 mg p.o. q day. If she continues to have similar pain, I may have to go up to 60 mg p.o. q day. If despite all that she continues to have pain especially with exertion, then another heart catheterization may have to be done by Dr. Scherer with stent implantation to the ostial to proximal RCA. However, I suspect that a lot of this is probably non-cardiac in nature. It may be due to stress as she was under a lot of stress with someone visiting her last night. She is also quite an anxious person and she has not been taking her Tranxene. She has not seen a psychiatrist for a long time. I advised her that she may want to consider seeing a psychiatrist for her psychiatric problem as apparently the medications have not been working. I did talk to her about restarting a statin. She will start her Lipitor that she has at home, but at half the usual dose on Mondays, Wednesdays, and Fridays only. I also advised her to take Co-enzyme Q10 100 mg p.o. b.i.d. in conjunction with a low dose of statin. Hopefully, she will do OK when she sees me in about a month. The findings and plan were discussed with Dr. Mancilla in person. Guanakito Holland M.D. Bryn LYNCH/sharan TD: 01/05/2014 19:15 Authenticated and Edited by Guanakito Holland MD On 01/16/14 11:30:17 AM documented in this encounter Plan of Treatment Not on file documented as of this encounter Procedures Procedure Name Priority Date/Time Associated Diagnosis Comments XR CHEST PORTABLE Routine 01/05/2014 1:5 6 PM CDT SERUM MAGNESIUM Routine 01/05/2014 1:47 PM CDT SERUM COMPREHENSIVE METABOLIC PANEL Routine 01/05/2014 1:47 PM CDT BLOOD WBC CELL MORPHOLOGIC EXAM, AUTO Routine 01/05/2014 1:47 PM CDT BLOOD CELL COUNT (CBC) Routine 4 1:47 PM CDT SERUM TROPONIN I Routine 01/05/2014 8:47 AM CDT BLOOD B-TYPE NATRIURETIC PEPTIDE (BNP) Routine 01/05/2014 8:47 AM CDT ELECTROCARDIOGRAPHY (ECG) 01/05/2014 DISCHARGE LABORATORY CUMULATIVE REPORT Routine 01/05/2014 12:00 AM CDT documented in this encounter Results * XR CHEST PORTABLE (01/05/2014 1:56 PM CDT) Anatomical Region Laterality Modality Body N/A Radiographic Patricia ging 01/05/2014 1:56 PM CDT Narrative 01/05/2014 10:25 PM CDT XR Chest Portable ? [id number] ??Acc#: ??[id number] DATE OF EXAM: ??Jan 05 2014 CLINICAL HISTORY: Chest pain since last night. ??Heart attack June 2013. ??Coronary artery stents. RESULT: PORTABLE CHEST (JANUARY 05, 1356 HOURS) Sitting AP portable chest is compared to PA and lateral chest on January 04. Heart size is normal for technique. ??Pulmonary vascularity is normal. ??No infiltrate, mass or pleural effusion is seen. ??Thoracic aorta is mildly tortuous, but not dilated. 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 Bony structures are unremarkable. IMPRESSION: 1. NO ACTIVE DISEASE SEEN. 2. NO SIGNIFICANT CHANGE SINCE JANUARY 04. Interpreting Physician: ??DR CIRILO SAWYER M.D. ??Read on: ??Jan 05 2014 4:19P Transcribed by: ??vam ??On: Jan 05 2014 ??5:16P Approved Electronically by: ??DIGNA Laird, DR KERR ??on: ??Jan 05 2014 10:25P Ordering DR: ??Charo Attending DR: DR RYAN CASTREJON Procedure Note Provider, Rosalinda, - 07/15/2016 XR Chest Portable [id number] Acc#: [id number] DATE OF EXAM: Jan 05 2014 CLINICAL HISTORY: Chest pain since last night. Heart attack June 2013. Coronary arterystents. RESULT: PORTABLE CHEST (JANUARY 05, 1356 HOURS) Sitting AP portable chest iscompared to PA and lateral chest on January 04. Heart size is normal fortechnique. Pulmonary vascularity is normal. No infiltrate, mass orpleural effusion is seen. Thoracic aorta is mildly tortuous, but notdilated. 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 Bony structures areunremarkable. IMPRESSION: 1. NO ACTIVE DISEASE SEEN. 2. NO SIGNIFICANT CHANGE SINCE JANUARY 04. Interpreting Physician: DR CIRILO SAWYER M.D. Read on: Jan 05 20144:19P Transcribed by: babita On: Jan 05 2014 5:16P Approved Electronically by: DIGNA Laird, DR KERR on: Jan 05 201410:25P Ordering DR: Charo Attending DR: DR RYAN CASTREJON us Historical Provider IMG XR PROCEDURES Final R esult * Serum magnesium (01/05/2014 1:47 PM CDT) Pathologist [facility] Magnesium 1.8 1.5 - 2.2 mg/dl HISTORICAL RESULTS Serum 01/05/2014 1:47 PM CDT Germain Mancilla MD LAB BLOOD ORDERABLES Final Result HISTORICAL RESULTS * (ABNORMAL) Blood cell count (CBC) (01/05/2014 1:47 PM CDT) WBC 8.0 4.0 - 10.5 K/cumm HISTORICAL RESULTS RBC 4.17(L) 4.20 - 5.40 M/cumm HISTORICAL RESULTS Hgb 13.2 12.0 - 16.0 g/dl HISTORICAL RESULTS Hct 38.3 37.0 - 47.0 % HISTORICAL RESULTS MCV 91.8 77.0 - 97.0 fl HISTORICAL RESULTS MCH 31.7 23.0 - 34.0 pg HISTORICAL RESULTS MCHC 34.5 32.0 - 36.0 g/dl HISTORICAL RESULTS Rdw 13.0 11.5 - 14.5 % HISTORICAL RESULTS Platelets 238 150 - 400 K/cumm HISTORICAL RESULTS MPV 11.0(H) 7.4 - 10.4 fl HISTORICAL RESULTS Blood specimen (specimen) 01/05/2014 1:47 PM CDT Germain Mancilla MD LAB BLOOD ORDERABLES Final Result Performing Organization Address City/[facility] Co de Phone Number HISTORICAL RESULTS * (ABNORMAL) Blood WBC cell morphologic exam, auto (01/05/2014 1:47 PM CDT) Lymphocytes 22.1(L) 25.0 - 33.0 % HISTORICAL RESULTS Monos 7.3 0.0 - 13.0 % HISTORICAL RESULTS Neutrophils 68.1 54.0 - 69.0 % HISTORICAL RESULTS Eosinophils 1.4 0.0 - 10.0 % HISTORICAL RESULTS Basophils 0.8 0.0 - 1.0 % HISTORICAL RESULTS Immature granulocytes 0.3 0.0 - 1.0 % HISTORICAL RESULTS Lymphocytes, abs 1.8 1.2 - 3.4 K/cumm HISTORICAL RESULTS Monocytes, absolute 0.6(L) 1.1 - 1.9 K/cumm HISTORICAL RESULTS Neutrophils, abs 5.4 1.4 - 6.5 K/cumm HISTORICAL RESULTS Eosinophils, abs 0.1 0.0 - 0.7 cells/cum m HISTORICAL RESULTS Basophils, abs 0.1 0.0 - 0.2 K/cumm HISTORICAL RESULTS Immature granulocyte, abs 0.0 0.0 - 0.0 K/cumm HISTORICAL RESULTS Blood specimen (specimen) 01/05/2014 1:47 PM CDT Germain Mancilla MD LAB BLOOD ORDERABLES Final Result Performing Organization Address City/[facility] Co de Phone Number HISTORICAL RESULTS * (ABNORMAL) Serum comprehensive metabolic panel (01/05/2014 1:47 PM CDT) BUN 10.0 6.0 - 23.0 mg/dl HISTORICAL RESULTS Sodium 137 134 - 143 mmol/L HISTORICAL RESULTS Potassium, sr 3.6 3.4 - 5.0 mmol/L HISTORICAL RESULTS Chloride 102 99 - 108 mmol/L HISTORICAL RESULTS CO2 27 23 - 32 mmol/L HISTORICAL RESULTS Glucose 121 70 - 199 mg/dl HISTORICAL RESULTS Comment: Note:The glucose is assumed non fasting Fastin-99 mg/dl Random: 70-199 mg/dl Either a fasting glucose > 126 mg/dL or a random glucose > 200 mg/dL plus symptoms is diagnostic of diabetes when confirmed on another day. Fasting values > 100 mg/dl but < 125 mg/dL are diagnostic of impaired fasting glucose. New reference ranges implemented 02/01/2013. Creatinine 0.87 0.60 - 1.30 mg/dl HISTORICAL RESULTS BUN/creat ratio 11 10 - 20 HIST ORICAL RESULTS A. gap 12 7 - 14 mmol/L HISTORICAL RESULTS Protein, sr 7.1 6.4 - 8.0 g/dl HISTORICAL RESULTS Alb 3.5 3.3 - 4.5 g/dl HISTORICAL RESULTS Alb/glob ratio 1.0(L) 1.1 - 1.8 HISTO RICAL RESULTS Calcium 9.1 8.6 - 9.8 mg/dl HISTORICAL RESULTS Bilirubin 0.4 0.0 - 1.1 mg/dl HISTORICAL RESULTS Alk phos 67 44 - 125 Units/L HISTORICAL RESULTS AST 16 5 - 40 Units/L HISTORICAL RESULTS ALT 24 15 - 70 Units/L HISTORICAL RESULTS Serum 01/05/2014 1:47 PM CDT Germain Mancilla MD LAB BLOOD ORDERABLES Final Result HISTORICAL RESULTS * (ABNORMAL) Blood B-type natriuretic peptide (BNP) (01/05/2014 8:47 AM CDT) BNP 145(H) -<100 pg/ml HISTORIC AL RESULTS Blood specimen (specimen) 01/05/2014 8:47 AM CDT Narrative HISTORICAL RESULTS - 01/05/2014 10:21 AM CDT BNP REFERENCE RANGE <100 pg/ml Germain Mancilla MD LAB BLOOD ORDERABLES Final Result HISTORICAL RESULTS * Serum troponin I (01/05/2014 8:47 AM CDT) Troponin I 0.09 0.00 - 0.10 ng/ml HISTORICAL RESULTS Serum 01/05/2014 8:47 AM CDT Narrative HISTORICAL RESULTS - 01/05/2014 10:53 AM CDT NEGATIVE: ??0.00 - 0.10 NG/ML INDETERMINATE: ??0.11 - 0.50 NG/ML POSITIVE: ??GREATER THAN 0.50 NG/ML us Germain Mancilla MD LAB BLOOD ORDERABLES Final Result HISTORICAL RESULTS * Discharge Laboratory Cumulative Report (01/05/2014 12:00 AM CDT) 01/05/2014 Narrative HISTORICAL RESULTS - 01/06/2014 12:37 AM CDT Patient No: [id number] ? [facility] Patient Name: ABENA HALL ? [facility] Healthcare Age: 73 YRS ?: 1940 ?Sex:F ?[address] )[id number] ?? Adm Dt: 01/05/2014 ?[place], [place] ??[address] Created: 01/06/2014 ??0037 ?? Pt. Type: E ? Discharge Dt: 01/05/2014 ? Pathologists: Rachel Bell MD Admit DrDarvin Attend Dr: GERMAIN MANCILLA MD ? BLOOD CELL COUNTS ?Collection Date: ?01/05/14 ?Collection Time: ?1347 ? Ref Range: ?? Units: [4.00-10.50] /CMM ? WBC X 10^3 ?7.95 [4.20-5.40] ??/CMM ? RBC X 10^6 ?4.17 L [12.0-16.0] ??G/DL ? HGB ? 13.2 [37.0-47.0] ??% ?HCT ? 38.3 [77.0-97.0] ??FL ? MCV ? 91.8 [23.0-34.0] ??PG ? MCH ? 31.7 [32.0-36.0] ??% ?MCHC ?34.5 [11.5-14.5] ??% ?RDW ? 13.0 [150-400] ?? /CMM ? PLT X 10^3 ? 238 ?BLOOD CELL DIFFERENTIAL ?Collection Date: ?15/14 ?Collection Time: ?1347 ? Ref Range: ?? Units: [54.0-69.0] ??% ?NEUTROPHILS ? 68.1 [25.0-33.0] ??% ?LYMPHOCYTES ? 22.1 L [0.0-13.0] ??% ?MONOCYTES ?7.3 [0.0-10.0] ??% ?EOSINOPHILS ?1.4 [0.0-1.0] ?? % ?BASOPHILS ?0.8 ? /CMM ? A LYMPHOCYTE ? 1.8 [0.0-1.0] ?? % ?IMM GRAN % ? 0.3 [0.00-0.02] ??/CMM ? A IMM GRAN ?0.02 [1.1-1.9] ?? /CMM ? A MONOCYTE ? 0.6 L [1.4-6.5] ?? /CMM ? A NEUTROPHIL ? 5.4 [0.0-0.7] ?? /CMM ? A EOSINOPHIL ? 0.1 [0.0-0.2] ?? /CMM ? A BASOPHIL ? 0.1 Footnotes and Symbols: L = Low ?? CONTINUED ?Page: ?? 1 Patient No: [id number] ? [facility] Patient Name: ABENA HALL ? [facility] Healthcare Age: 73 YRS ?: 1940 ?Sex:F ?[address] )[id number] ?? Adm Dt: 01/05/2014 ?[place], [place] ??[address] Created: 01/06/2014 ??0037 ?? Pt. Type: E ? Discharge Dt: 01/05/2014 ? Pathologists: Rachel Bell MD Admit Attend Dr: GERMAIN MANCILLA MD ? GENERAL CHEMISTRY ?Collection Date: ?01/05/14 ?Collection Time: ?1347 ? Ref Range: ?? Units: [< ?100] ?? pg/ml ?BNP ?145 Hf [134-143] ?? MMOL/L ? SODIUM ? 137 [3.4-5.0] ?? MMOL/L ? POTASSIUM ?3.6 [99.0-108.0] MMOL/L ? CHLORIDE ? 102.0 [23.0-32.0] ??MMOL/L ? TOTAL CO2 ? 26.8 ?? [7-14] ?MMOL/L ? ANION GAP ? 12 ??[70-199] ?? MG/DL ?GLUCOSE ?121 f [6.4-8.0] ?? G/DL ? TOTAL PROTEIN ?7.1 [3.3-4.5] ?? G/DL ? ALBUMIN ?3.5 [1.1-1.8] ?A/G RATIO ?1.0 L [8.6-9.8] ?? MG/DL ?CALCIUM ?9.1 [0.0-1.1] ?? MG/DL ?BILI TOTAL ? 0.4 ??[44-125] ?? U/L ?ALK PHOS ?67 ?? [5-40] ?U/L ?AST(SGOT) ? 16 f ??[15-70] ?U/L ?ALT(SGPT) ? 24 f [6.0-23.0] ??MG/DL ?BUN ? 10.0 ??[10-20] ? B/C RATIO ? 11 Footnotes and Symbols: L = Low, H = High, f = Footnote BNP (01/01/08 -- Current) BNP REFERENCE RANGE <100 pg/ml GLUCOSE (02/23/13 -- Current) Note:The glucose is assumed non fasting Fastin-99 mg/dl Random: 70-199 mg/dl Either a fasting glucose > 126 mg/dL or a random glucose > 200 mg/dL plus symptoms is diagnostic of diabetes when confirmed on another day. Fasting values > 100 mg/dl but < 125 mg/dL are diagnostic of impaired fasting glucose. New reference ranges implemented 02/01/2013. AST(SGOT) (08/05/13 -- Current) ALT(SGPT) (10/13/12 -- Current) ?? CONTINUED ?Page: ?? 2 Patient No: [id number] ? [facility] Patient Name: ABENA HALL ? [facility] Healthcare Age: 73 YRS ?: 1940 ?Sex:F ?[address] )[phone] ?? Adm Dt: 01/05/2014 ?[place] ??[id number] Created: 01/06/2014 ??0037 ?? Pt. Type: E ? Discharge Dt: 01/05/2014 ? Pathologists: Rachel Bell MD Admit Attend Dr: GERMAIN MANCILLA MD ? GENERAL CHEMISTRY ?Collection Date: ?01/05/14 ?Collection Time: ?1347 ? Ref Range: ?? Units: [0.60-1.30] ??MG/DL ?CREATININE ?0.87 [1.5-2.2] ?? MG/DL ?MAGNESIUM ?1.8 ? CARDIAC CHEMISTRY ?Collection Date: ?01/05/14 ?Collection Time: ?1347 ? Ref Range: ?? Units: [0.00-0.10] ??NG/ML ?TROPONIN I ?0.09 f Footnotes and Symbols: f = Footnote TROPONIN I (01/17/11 -- Current) NEGATIVE: ??0.00 - 0.10 NG/ML INDETERMINATE: ??0.11 - 0.50 NG/ML POSITIVE: ??GREATER THAN 0.50 NG/ML ?? END OF CHART ? Page: ?? 3 us Historical Provider LAB BLOOD ORDERABLES Roshni l Result HISTORICAL RESULTS * ELECTROCARDIOGRAPHY (ECG) (01/05/2014) Narrative 01/05/2014 Ordered by an unspecified provider. us Historical Provider ECG ORDERABLES Final Res ult documented in this encounter Visit Diagnoses Diagnosis Other chest pain documented in this encounter Care Teams Uniformer Relationship Specialty Start Date End Date Ryan Castrejon MD PCP - General 03/31/13 05/28/16 documented as of this encounter
--- OUTSIDE RECORDS SUMMARY | 2024-04-11 06:41 | XMS_ITS | Encounter Summary ---
Author Organization [facility] Healthcare Address [address] [place] [address] Care Team Providers Care Sole Splitter Name Role Phone Ryan Castrejon MD Primary Care Provider [phone] Encounter Details Date Type Department Care Team (Late st Contact Info) Description 03/02/2013 9:06 AM MIGRANT LEADER - 03/02/2013 11:59 PM [facility] Hospital Encounter [facility] RAJANCONRyan Reyes MD [address] [place] [id number] Hematuria; Other chronic nonalcoholic liver disease; Other acquired absence of organ; Diverticulosis of colon Social History Tobacco Use Types Packs/Day Years Used Date Smoking Tobacco: Former Cigarettes Q uit: 03/24/1969 Alcohol Use Standard Drinks/Week Comments No 0 (1 standard drink = 0.6 oz pur e alcohol) Comments Unknown Sex and Gender Information Value Date Recorded Sex Assigned at Not on file Legal Sex Female 11:18 AM MIGRANT LEADER Gender Identity Female 10/09/2022 9:08 AM CDT Sexual Orientation Choose not to disclose 2022 9:08 AM CDT documented as of this encounter Plan of Treatment Not on file documented as of this encounter Procedures Procedure Name Priority Date/Time Associated Diagnosis Comments UROGRAM W WO KUB W WO TOMOGRAM Routine 03/02/2013 11:03 AM MIGRANT LEADER BLOOD CREATININE Routine 03/02/2013 9:10 AM MIGRANT LEADER DISCHARGE LABORATORY CUMULATIVE REPORT Routine 03/02/2013 12:00 AM MIGRANT LEADER documented in this encounter Results * XR Urogram W WO Kub W WO Tomogram (03/02/2013 11:03 AM MIGRANT LEADER) Anatomical Region Laterality Modality Body, Abdomen N/A Radiographic Patricia ging 03/02/2013 11:0 3 AM MIGRANT LEADER Narrative 03/03/2013 9:[address] IVP Urogram W/WO [id number] ??Acc#: ??[id number] DATE OF EXAM: ??Mar 02 2013 CLINICAL HISTORY: Hematuria. RESULT: Helical CT scan of the abdomen and pelvis obtained without and with intravenous contrast. ??100ml Optirahy 320 was utilized for the procedure. ??Images from the lung bases to the ischial tuberosities. ??No oral contrast administered as requested. No renal or ureteral calculus identified. ??No hydronephrosis or hydroureter. ??No renal mass is evident. ??The urinary bladder is only mildly distended with urine and contrast. ??Suggestion of a trace of free fluid in the lower pelvis. ??Mild fatty infiltration of the liver. Surgical clips gallbladder fossa from prior cholecystectomy. ??Common bile duct diameter is upper range of normal. ??Spleen size within the normal range. ??No adrenal mass identified. ??No pancreatic mass is evident. Adrenal glands are unremarkable. ??Significant calcification abdominal aorta and iliac arteries consistent with arteriosclerotic changes. ??Vague mesenteric opacity seen within the mid abdomen. ??Colonic diverticulosis particularly descending and sigmoid colon. ??No definite evidence of diverticulitis. ??Degenerative changes of the lower thoracic spine and lumbar spine with hypertrophic changes/spurring as well as degenerative disc disease particularly at L4-L5. 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 Other mesenteric diseases with similar imaging features may include carcinomatosis, carcinoid tumor, lymphoma, desmoid tumor, and mesenteric edema. ??Mesenteric panniculitis may also be referred to as sclerosing mesenteritis. ??Comparison with any prior study (unavailable to us at this time) would be beneficial. IMPRESSION: 1. NO RENAL OR URETERAL CALCULUS IDENTIFIED. ??NO HYDRONEPHROSIS ??OR HYDROURETER. 2. PRIOR CHOLECYSTECTOMY. 3. MILD FATTY INFILTRATION OF THE LIVER. 4. COLONIC DIVERTICULOSIS PARTICULARLY DESCENDING AND SIGMOID COLON. ??NO DEFINITE EVIDENCE OF DIVERTICULITIS. 5. TRACE OF FREE FLUID IN THE LOWER PELVIS. 6. HAZY MESENTERIC OPACITY. ??THE APPEARANCE SUGGESTS MESENTERIC PANNICULITIS. ??THIS APPEARANCE IS NONSPECIFIC. ??PLEASE SEE DISCUSSION ABOVE. ??COMPARISON WITH ANY PRIOR STUDY (UNAVAILABLE TO US AT THIS TIME) WOULD BE BENEFICIAL. Interpreting Physician: ??JERRY SLAUGHTER M.D. ??Read on: ??Mar 02 2013 11:22A Transcribed by: ??lorrie ?? On: Mar 02 2013 ??2:05P Approved Electronically by: ??JERRY SLAUGHTER M.D. ??on: ??Mar 03 2013 ??9:17A Ordering DR: DR RYAN CASTREJON Attending DR: DR RYAN CASTREJON Procedure Note Provider, MD Rosalinda - 07/15/2016 CT IVP Urogram W/WO [id number] Acc#: [id number] DATE OF EXAM: Mar 02 2013 CLINICAL HISTORY: Hematuria. RESULT: Helical CT scan of the abdomen and pelvis obtained without and withintravenous contrast. 100ml Optirahy 320 was utilized for the procedure.Images from the lung bases to the ischial tuberosities. No oral contrastadministered as requested. No renal or ureteral calculus identified. Nohydronephrosis or hydroureter. No renal mass is evident. The urinarybladder is only mildly distended with urine and contrast. Suggestion of atrace of free fluid in the lower pelvis. Mild fatty infiltration of theliver. Surgical clips gallbladder fossa from prior cholecystectomy.Common bile duct diameter is upper range of normal. Spleen size withinthe normal range. No adrenal mass identified. No pancreatic mass isevident. Adrenal glands are unremarkable. Significant calcificationabdominal aorta and iliac arteries consistent with arterioscleroticchanges. Vague mesenteric opacity seen within the mid abdomen. Colonicdiverticulosis particularly descending and sigmoid colon. No definite evidence of diverticulitis. Degenerative changes of the lowerthoracic spine and lumbar spine with hypertrophic changes/spurring as wellas degenerative disc disease particularly at L4-L5. The mesentericopacity may most likely represent mesenteric panniculitis. Othermesenteric diseases with similar imaging features may includecarcinomatosis, carcinoid tumor, lymphoma, desmoid tumor, and mesentericedema. Mesenteric panniculitis may also be referred to as sclerosingmesenteritis. Comparison with any prior study (unavailable to us at thistime) would be beneficial. IMPRESSION: 1. NO RENAL OR URETERAL CALCULUS IDENTIFIED. NO HYDRONEPHROSIS ORHYDROURETER. 2. PRIOR CHOLECYSTECTOMY. 3. MILD FATTY INFILTRATION OF THE LIVER. 4. COLONIC DIVERTICULOSIS PARTICULARLY DESCENDING AND SIGMOID COLON. NODEFINITE EVIDENCE OF DIVERTICULITIS. 5. TRACE OF FREE FLUID IN THE LOWER PELVIS. 6. HAZY MESENTERIC OPACITY. THE APPEARANCE SUGGESTS MESENTERICPANNICULITIS. THIS APPEARANCE IS NONSPECIFIC. PLEASE SEE DISCUSSIONABOVE. COMPARISON WITH ANY PRIOR STUDY (UNAVAILABLE TO US AT THIS TIME)WOULD BE BENEFICIAL. Interpreting Physician: JERRY SLAUGHTER M.D. Read on: Mar 02 2013 11:22A Transcribed by: lorrie On: Mar 02 2013 2:05P Approved Electronically by: JERRY SLAUGHTER M.D. on: Mar 03 2013 9:17A Ordering DR: DR RYAN CASTREJON Attending DR: DR RYAN CASTREJON us Historical Provider IMG FLUOROSCOPY PROCEDURE S Final Result * Blood creatinine (03/02/2013 9:10 AM MIGRANT LEADER) Creatinine 0.66 0.60 - 1.30 mg/dl HISTORICAL RESULTS Blood specimen (specimen) 03/02/2013 9:10 AM MIGRANT LEADER yRan Castrejon MD LAB BLOOD ORDERABLES Final Res ult HISTORICAL RESULTS * Discharge Laboratory Cumulative Report (03/02/2013 12:00 AM MIGRANT LEADER) 03/02/2013 Narrative HISTORICAL RESULTS - 03/04/2013 12:28 AM MIGRANT LEADER Patient No: [id number] ? [facility] Patient Name: ABENA HALL ? [facility] Healthcare Age: 72 YRS ?: 1940 ?Sex:F ?[address] )[phone] ?? Adm Dt: 03/02/2013 ?[place], [place] ??[id number] Created: 03/04/2013 ??0028 ?? Pt. Type: R ? Discharge Dt: 03/02/2013 ? Pathologists: Rachel Bell MD Admit Attend Dr: RYAN CASTREJON MD ? GENERAL CHEMISTRY ?Collection Date: ?03/02/13 ?Collection Time: ?0910 ? Ref Range: ?? Units: [0.60-1.30] ??MG/DL ?CREATININE ?0.66 ?? END OF CHART ? Page: ?? 1 us Historical Provider LAB BLOOD ORDERABLES Roshni l Result HISTORICAL RESULTS documented in this encounter Visit Diagnoses Diagnosis Hematuria Hematuria, unspecified Other chronic nonalcoholic liver disease Other acquired absence of organ Diverticulosis of colon Diverticulosis of colon (without mention of hemorrhage) documented in this encounter Care Teams Sole Splitter Relationship Specialty Start Date End Date Ryan Castrejon MD PCP - General 01/18/13 03/30/13 documented as of this encounter
--- OUTSIDE RECORDS SUMMARY | 2024-04-11 06:41 | XMS_ITS | Encounter Summary ---
Author Organization [facility] Healthcare Address [address] [place] [address] Care Team Providers Care Associate Chemist Name Role Phone Ronald Castrejon MD Primary Care Provider [phone] Encounter Details Date Type Department Care Team (Late st Contact Info) Description 07/27/2012 9:02 AM CDT - 07/27/2012 11:59 PM CDT Hospital Encounter [facility] Marilia Ledezma MD [address] [address] Chest pain Social History Tobacco Use Types Packs/Day Years Used Date Smoking Tobacco: Former Cigarettes Q uit: 03/24/1969 Alcohol Use Standard Drinks/Week Comments Yes 0 (1 standard drink = 0.6 oz pur e alcohol) Comments Unknown Sex and Gender Information Value Date Recorded Sex Assigned at Not on file 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 : ? 1940 Room No: ? Age: ? 72 Attending: ? Marilia Ledezma M.D. Patient Type: ANC Dictating: ? Christa Hobson D.O. Admit Date: 07/27/2012 ? [facility] PHARMACOLOGICAL STRESS TEST Date of Exam: ??07/27/2012 Tech ID#: ??[id number] INDICATION: ??Chest pain. ??Coronary risk factors include hypertension and dyslipidemia. BASELINE EKG: ??Baseline 12 lead EKG shows sinus bradycardia at a heart rate of 49 beats per minute, non specific ST-T wave abnormalities. PROCEDURE: ??The patient was initially scheduled for an exercise Nuclear stress test. ??However, the patient's blood pressure at rest was 230/92 mmHg. ??After several minutes of rest, her baseline blood pressure was still elevated at 192/84 mmHg. ??Therefore, her stress test was changed to a pharmacological stress test. ??After obtaining baseline 12 lead EKG and blood pressure, the patient received 0.4 milligrams of Lexiscan IV push followed by stress dose of Technesium. ??The patient was followed for 5 minutes into recovery with 12 lead EKG and blood pressure measurements at one minute intervals. ??There were no ischemic ST segment abnormalities after Lexiscan injection. ??Rare PVCs were seen. ??No significant heart blocks or arrhythmias were noted. ??The patient tolerated the procedure well with any symptomotology. ??Myocardial perfusion scan is pending at this time. CONCLUSIONS: ??1. ?Resting EKG showed sinus bradycardia, non specific ST-T wave ?abnormalities, PVCs. ??2. ?EKG portion of stress test negative for ischemia by EKG criteria. ??3. ?Systemic hypertension. ??4. ?Myocardial perfusion scan is pending at this time and the results of ?this test should be correlated with the perfusion imaging. DICTATED BY: ??Ryan Hutton M.D. JOB #[id number] ?STRESS MYOCARDIAL PERFUSION STUDY INDICATION: ??Chest pain. TECHNIQUE: ??Lexiscan Nuclear stress test was performed according to standard protocol. ??Please note that EKG portion of the test is dictated separately. ??A single isotope sestamibi 3 dimensional SPECT imaging was performed following IV injection of 10.7 mCi of technetium 99 sestamibi at rest. ??An additional 30.7 mCi of technetium 99 sestamibi was given intravenously at peak stress. ??Image interpretation was performed via computer assistance. FINDINGS: ??Review of SPECT images demonstrated a small rock-apical reversible defect, consistent with attenuation artifact. ??There is no evidence of ischemia or prior myocardial infarction. ??Gated imaging demonstrates normal LV systolic function with ejection fraction of 73%. ??There are no regional wall motion abnormalities. CONCLUSIONS: ??1. ?There is a small reversible rock-apical defect consistent with ?attenuation artifact. ??There is no evidence of ischemia or prior ?myocardial infarction. ??2. ?Normal LV systolic function, ejection fraction 73%. Dictated by: Kiya Sargent Job #: ??[id number] DD: ??07/28/2012 09:16 TD: ??07/28/2012 09:41 Procedure Note Provider, MD Rosalinda - 07/23/2016 CARDIOLOGY GRAPHICS Patient: ABENA HALL Account: [id number] : 1940 Room No: Age: 72 Attending: Marilia Ledezma M.D. PatientType: ANC Dictating: Christa Hobson D.O. AdmitDate: 07/27/2012 NW PHARMACOLOGICAL STRESS TEST Date of Exam: 07/27/2012 Tech ID#: [id number] INDICATION: Chest pain. Coronary risk factors include hypertension and dyslipidemia. BASELINE EKG: Baseline 12 lead EKG shows sinus bradycardia at a heartrate of 49 beats per minute, non specific ST-T wave abnormalities. PROCEDURE: The patient was initially scheduled for an exercise Nuclearstress test. However, the patient's blood pressure at rest was 230/92 mmHg.After several minutes of rest, her baseline blood pressure was still elevatedat 192/84 mmHg. Therefore, her stress test was changed to apharmacological stress test. After obtaining baseline 12 lead EKG and blood pressure,the patient received 0.4 milligrams of Lexiscan IV push followed by stressdose of Technesium. The patient was followed for 5 minutes into recovery with 12lead EKG and blood pressure measurements at one minute intervals. There wereno ischemic ST segment abnormalities after Lexiscan injection. Rare PVCswere seen. No significant heart blocks or arrhythmias were noted. Thepatient tolerated the procedure well with any symptomotology. Myocardialperfusion scan is pending at this time. CONCLUSIONS: 1. Resting EKG showed sinus bradycardia, non specific ST-T wave abnormalities, PVCs. 2. EKG portion of stress test negative for ischemia by EKGcriteria. 3. Systemic hypertension. 4. Myocardial perfusion scan is pending at this time and the resultsof this test should be correlated with the perfusion imaging. DICTATED BY: Ryan Hutton M.D. JOB #[id number] STRESS MYOCARDIAL PERFUSION STUDY INDICATION: Chest pain. TECHNIQUE: Lexiscan Nuclear stress test was performed according tostandard protocol. Please note that EKG portion of the test is dictatedseparately. A single isotope sestamibi 3 dimensional SPECT imaging was performedfollowing IV injection of 10.7 mCi of technetium 99 sestamibi at rest. An [id number] mCi of technetium 99 sestamibi was given intravenously at peak stress.Image interpretation was performed via computer assistance. FINDINGS: Review of SPECT images demonstrated a small rock-apicalreversible defect, consistent with attenuation artifact. There is no evidence ofischemia or prior myocardial infarction. Gated imaging demonstrates normal LVsystolic function with ejection fraction of 73%. There are no regional wallmotion abnormalities. CONCLUSIONS: 1. There is a small reversible rock-apical defect consistent with attenuation artifact. There is no evidence of ischemia or prior myocardial infarction. 2. Normal LV systolic function, ejection fraction 73%. Dictated by: Kiya Sargent TD: 07/28/2012 09:41 us Historical Provider MD [facility] NM PROCEDURES Final R esult documented in this encounter Visit Diagnoses Diagnosis Chest pain Unspecified chest pain documented in this encounter Care Teams Associate Chemist Relationship Specialty Start Date End Date Ronald Castrejon MD PCP - General 07/22/12 01/17/13 documented as of this encounter
--- OUTSIDE RECORDS SUMMARY | 2024-04-11 06:41 | XMS_ITS | Encounter Summary ---
Author Organization [facility] Healthcare Address [address] [place] [address] Care Team Providers Care Conditioner Tumbler Name Role Phone Ryan Castrejon MD Primary Care Provider [phone] Encounter Details Date Type Department Care Team (Latest Contact Info) Description 06/26/2013 2:31 PM CDT - 06/29/2013 4:29 PM CDT Hospital Encounter [facility] Johnathon Michael Acute subendocardial infarction, initial episode of care (HCC); Other specified cardiac dysrhythmias; Pure hypercholesterolemia; Coronary atherosclerosis of [place] coronary artery; Other and unspecified hyperlipidemia; Essential hypertension; Generalized anxiety disorder; Esophageal reflux; Hypopotassemia; Panic disorder without agoraphobia; Obesity Social History Tobacco Use Types Packs/Day Years Used Date Smoking Tobacco: Former Cigarettes Q uit: 03/24/1969 Alcohol Use Standard Drinks/Week Comments No 0 (1 standard drink = 0.6 oz pur e alcohol) Comments Unknown Sex and Gender Information Value Date Recorded Sex Assigned at Not on file 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 Gender Identity Female 10/09/2022 9:08 AM CDT Sexual Orientation Choose not to disclose 2022 9:08 AM CDT documented as of this encounter Last Filed Vital Signs Vital Sign Reading Time Taken Comments Blood Pressure 123/62 06/29/2013 11:47 AM CDT Pulse 50 06/29/2013 11:47 AM CDT Temperature - - Respiratory Rate - - Oxygen Saturation - - Inhaled Oxygen Concentration - - Weight 80.9 kg (178 lb 5.6 oz) 06/26/2013 3:15 P M CDT Height 154.9 cm (5' 0.98 ) 06/26/2013 3:15 PM CD T Body Mass Index 33.72 06/26/2013 3:15 PM CDT documented in this encounter Discharge Summaries * Provider, MD Rosalinda - 06/29/2013 12:00 AM CDT DISCHARGE SUMMARY - [facility] Patient: ABENA GIRON Account: [id number] Room No: [id number] : 1940 Patient Type: IP Attend.: Johnathon Carter M.D. Admit Date: 06/26/2013 Dict.: Johnathon Carter M.D. Disch. Date: 06/29/2013 ADMITTING DIAGNOSIS Neck pain radiating to the chest. DISCHARGE DIAGNOSES 1. Acute ngi-LH-skjovtetz myocardial infarction status post cardiac catheterization by Dr. Silas Holland, grinder, on June 28, 2013. Findings, severe one-vessel coronary artery disease in this right dominant system with subtotal stenosis of the mid circumflex. This was given a stent with excellent results, 30% proximal, and 30% RCA stenosis is also noted with spasm in that area. Normal global LV function with no regional wall motion abnormality. The patient was started on aspirin, Plavix, Toprol, and Lipitor, and she was given prescription. A 2D echo was done and showed normal ejection fraction, 55-60%, very mild mitral regurgitation. 2. Dyslipidemia. Continue with Lipitor. 3. Hypertension, controlled. 4. Generalized anxiety. 5. Gastroesophageal reflux disease. 6. Hypokalemia was corrected. 7. Full code. DISPOSITION The patient is going to go home and follow up with her primary care physician, follow up with Dean Mendoza M.D., grinder, on Tuesday, July 30, 2013, appointment already made, 9:15 in the morning. DISCHARGE MEDICATIONS The patient will be discharged on 1. Plavix 75 mg p.o. q. day. 2. Aspirin EC 325 p.o. q. daily. 3. Lipitor 40 mg p.o. q. daily. 4. Toprol XL 25 mg p.o. q. daily. 5. Vitamin D3 one tablet daily. This is a home medication. 6. Vitamin B12 one tablet p.o. daily, home medication. 7. Oyster shell calcium oral, home medication, continue. 8. Zantac 75 p.o. q. daily. 9. Tylenol p.o. p.r.n. for pain and fever. At the time of discharge she is awake and alert, oriented x4, feeling great, no chest pain, no shortness of breath. Family at bedside. Vital signs are 97.5, heart rate in the 50s, sinus rhythm, 18, 98% on room air, blood pressure 123/62. PHYSICAL EXAMINATION HEENT: Head normocephalic, atraumatic. Eye movements are intact. Pupils are round and reactive to light and accommodation. NECK: The neck is supple. No jugular venous distention. No lymphadenopathy. Supple. HEART: Regular rhythm and rate. Normal S1, S2. LUNGS: Clear to auscultation bilaterally. Equal air entry bilaterally. No wheezing. No crackles. ABDOMEN: Soft. Bowel sounds present. No rebound. No tenderness. No organomegaly. No rigidity. EXTREMITIES: No edema. Pulses are present bilaterally. No cyanosis or clubbing. NEUROLOGIC: No focal deficit. Awake, alert, oriented x 4. Skin intact. LABORATORY DATA CMP within normal limits. CBC, hemoglobin 11.8, hematocrit 35.3, white count 9.6. Magnesium is 12.8. Lipid panel on June 27, HDL 31, LDL 141. Discussed with the patient in detail regarding the findings and discharge plan. Dr. Holland discussed with the patient the findings and the discharge plan and followup plan. She verbalized understanding and agreement. She was satisfied. Johnathon Carter M.D. LISSETT/smiley TD: 06/30/2013 10:01 Authenticated by Johnathon Carter MD On 06/30/2013 11:57:50 AM documented in this encounter H&P Notes * Provider, MD Rosalinda - 06/26/2013 12:00 AM CDT HISTORY AND PHYSICAL Patient: ABENA GIRON Account: [id number] Room No: [id number] : 1940 Patient Type: IP Attend.: Johnathon Carter M.D. Admit Date: 06/26/2013 Dict.: Johnathon Carter M.D. Disch. Date: CHIEF COMPLAINT Neck pain, radiating to the chest. HISTORY OF PRESENT ILLNESS This is a 73-year-old female who presented to the hospital with neck pain that radiated to the chest. Neck pain has been going on for one week, on and off, intermittent and the pain radiated to the chest, down to the epigastric area. The pain is 5/10, got worse yesterday and she came to the emergency room. The pain was 10/10, pressure and burning. She thought that this was gastroesophageal reflux disease. She took Zantac with no improvement. Walking made the pain worse. Maalox made the pain better here in the hospital. She had some pain exactly like this pain three years ago, went away by itself. No shortness of breath. No nausea, no vomiting, no diarrhea, no constipation. No dizziness, no sweating. No paroxysmal nocturnal dyspnea, no orthopnea. The patient took Zantac at home 150 mg as I mentioned. PAST MEDICAL HISTORY Hypertension, generalized anxiety. PAST SURGICAL HISTORY Cholecystectomy. MEDICATIONS AT HOME 1. Oyster shell calcium orally. 2. Vitamin B12. 3. Vitamin D3. 4. Zantac. ALLERGIES Penicillin, codeine and morphine. SOCIAL HISTORY Lives alone. No history of smoking, alcohol or street drugs. She is a full code. FAMILY HISTORY No family history of coronary artery disease, diabetes, cancer or stroke. REVIEW OF SYSTEMS Twelve systems reviewed and otherwise negative. PHYSICAL EXAMINATION VITAL SIGNS: 97.6, heart rate 64, breathing rate 18, 98% on room air, blood pressure 144/96. HEENT: Head normocephalic, atraumatic. Eye movements are intact. Pupils are round and reactive to light and accommodation. NECK: The neck is supple. No jugular venous distention. No lymphadenopathy. Supple. HEART: Regular rhythm and rate. Normal S1, S2. LUNGS: Clear to auscultation bilaterally. Equal air entry bilaterally. No wheezing. No crackles. ABDOMEN: Soft. Bowel sounds present. No rebound. No tenderness. No organomegaly. No rigidity. EXTREMITIES: No edema. Pulses are present bilaterally. No cyanosis or clubbing. NEUROLOGIC: No focal deficit. Awake, alert, oriented x 4. Skin intact. LABORATORY DATA She has an HDL of 31, LDL of 41. BMP was within normal limits. Basic metabolic panel - cardiac enzymes first set 0.70, second one 1.33, third 2.90. , magnesium 1.7, potassium 3.3, sodium 138, chloride 103, bicarbonate 25.9. This was yesterday and the potassium was corrected and is now 0.9. She has a chest x-ray with no acute findings. EKG - normal sinus rhythm, no ST or T wave changes. ASSESSMENT AND PLAN 1. Non-ST elevation myocardial infarction. 2. Dyslipidemia. 3. Hypertension. 4. Generalized anxiety. 5. Gastroesophageal reflux disease. 6. Hyperkalemia, corrected. 7. Full code. PLAN 1. The patient was admitted to IMU. 2. Dr. Durán, grinder, was consulted by emergency room attending and he is managing the patient from a cardiac standpoint. The patient will be on Lovenox, Plavix, Integrilin, no beta-blair per Dr. Durán because the patient has heart rate in the 50s. Will be on aspirin, Lipitor, Plavix, Lovenox, Xanax p.r.n., Integrilin, Protonix, continue Diovan, her home medication. The patient will be NPO after midnight for a cardiac catheterization in the morning by Dr. Durán. Discussed with the patient and her family, I will followup closely. Time spent - 40 minutes. Johnathon Carter M.D. Kiet TD: 06/27/2013 13:16 Authenticated by Johnathon Carter MD On 06/27/2013 01:50:18 PM documented in this encounter Consult Notes * Provider, MD Rosalinda - 06/27/2013 12:00 AM CDT CONSULTATION REPORT Patient: ABENA GIRON Account: [id number] Room No: 2618-01 : 1940 Patient Type: IP Attend.: Johnathon Carter M.D. Admit Date: 06/26/2013 Consult: Sisi Heath F.A.C.C.. Date: DATE OF CONSULTATION: 06/27/2013. CHIEF COMPLAINT: Chest discomfort, troponin elevation. HISTORY OF PRESENT ILLNESS: Ms. Giron is a very pleasant 73-year-old woman with history of hypercholesterolemia, anxiety, apparent panic disorder, going through a lot of stress in her personal life, history of Gastroesophageal reflux disease, came into the emergency room with history of having about one week symptoms of intermittent epigastric and chest discomfort along with throat and jaw pain. She also had some nausea with it. She says she has discomfort especially in the jaw and in the central chest that was brought on by eating food, relieved with Maalox. This seems to be very reproducible and prompt response with the Maalox recovery. She denies any exertional symptoms. She states she is going through a lot of stress in her personal life with a divorce proceeding. It is not making her happy. She denies any shortness of breath, no vomiting, no abdominal pain, no bleeding diathesis. She is noticed to have troponin elevation in the range of non-ST elevation myocardial infarction and cardiology consultation is requested. I have been treating her since the emergency room information yesterday. She is on currently Integrilin drip, apparently refused to take rest of my recommended medications including Plavix bolus dose and statin for some unknown reason. She is willing to take them now. She denies any current chest pain or any other symptoms. She never had a stroke no urinary symptoms or GI symptoms. ALLERGIES: Codeine, morphine, penicillin. SOCIAL HISTORY: Negative for smoking, alcohol drinking or illicit drug use. FAMILY HISTORY: Noncontributory. REVIEW OF SYSTEMS: All other system reviewed were negative other than what is already mentioned in the detailed history of present illness. PHYSICAL EXAMINATION: Constitutional: The patient is moderately obese at 81 kilograms, blood pressure was 130/90 mmHg. Her admission blood pressure though was 205/[address] elevation, pulse rate 90 beats per minute, on admission 58 beats per minute, now with sinus bradycardia. Her heart rate was as low as 44 beats per minute, respiratory rate 16 beats. Neck: No lymphadenopathy. Chest: No carotid beats. SHEENT: Negative. Heart: First and second heart sounds normally heard, no additional sounds. No apical pulsations. [place] is not felt. Lungs: Clear to auscultation, resonant to percussion. Abdomen: Soft, nontender, bowel sounds present. Extremities: No pedal edema. Distal pulses are symmetrical. Neuro: The patient is alert and oriented x 3, mood and affect are appropriate. LAB EVALUATION: So far is remarkable for serial troponins of 0.70, 1.33 and 2.99, the latest at 345 a.m. this morning, BMP is normal, CBC and CMP are unremarkable as well except for a potassium of 3.3 on admission, has been 3.9 since. IMPRESSION 1. Acute coronary syndrome, acute non-ST elevation myocardial infarction. 2. Hypercholesterolemia. 3. Anxiety. 4. Hypokalemia. 5. Obesity. PLAN 1. Continue aspirin and lowered Plavix at 600 mg bolus followed by 75 mg once daily for dual antiplatelet therapy. 2. Integrellin drip will be continued into the cardiac cath tomorrow. 3. Recommend a cardiac catheterization to delineate coronary anatomy, refer further management regarding the details with her regarding the procedure including the details and the benefits of surgery. She is willing to proceed. 4. Beta-blair will be avoided in view of significant bradycardia runs that she has been having on telemetry. 5. Risk factor modification will be pursued also for long-term management of her atherosclerosis. Again, thanks for allowing me to participate in the care of your patient. If I may be of any further help, please do not hesitate to contact me. Sisi HeathCDarvin FDarvinSCharlie. LUKE/cl TD: 06/27/2013 16:09 Authenticated and Edited by Blanca Durán MD On 07/06/13 2:42:22 PM documented in this encounter Plan of Treatment Not on file documented as of this encounter Procedures Procedure Name Priority Date/Time Associated Diagnosis Comments SERUM MAGNESIUM Routine 06/29/2013 8:27 AM CDT SERUM CREATINE KINASE (CK) MB CONFIRMATION Routine 06/29/2013 8:27 AM CDT SERUM COMPREHENSIVE METABOLIC PANEL Routine 06/29/2013 8:27 AM CDT BLOOD WBC CELL MORPHOLOGIC EXAM, AUTO Routine 06/29/2013 8:27 AM CDT BLOOD CELL COUNT (CBC) Routine 4 8:27 AM CDT ELECTROCARDIOGRAPHY (ECG) 06/29/2013 DISCHARGE LABORATORY CUMULATIVE REPORT Routine 06/29/2013 12:00 AM CDT SERUM CREATINE KINASE (CK) MB CONFIRMATION Routine 06/29/2013 12:00 AM CDT SERUM CREATINE KINASE (CK) MB CONFIRMATION Routine 06/28/2013 5:40 PM CDT LEFT CORONARY ANGIOGRAPHY Routine 2013 2:55 PM CDT TRANSESOPHAGEAL ECHO (EVELYN) W DOPPLER/CF WO CONTRAST Routine 06/28/2013 10:17 AM CDT INTRACARDIAC ECHOCARDIOGRAM Routine 06/28/2013 8:35 AM CDT SERUM MAGNESIUM Routine 06/28/2013 3:42 AM CDT SERUM COMPREHENSIVE METABOLIC PANEL Routine 06/28/2013 3:42 AM CDT BLOOD WBC CELL MORPHOLOGIC EXAM, AUTO Routine 06/28/2013 3:42 AM CDT BLOOD CELL COUNT (CBC) Routine 4 3:42 AM CDT ELECTROCARDIOGRAPHY (ECG) 06/28/2013 SERUM LIPID PANEL Routine 06/27/2013 3:4 5 AM CDT SERUM BASIC METABOLIC PANEL Routine 06/27/2013 3:45 AM CDT BLOOD WBC CELL MORPHOLOGIC EXAM, AUTO Routine 06/27/2013 3:45 AM CDT BLOOD CELL COUNT (CBC) Routine 3:45 AM CDT ELECTROCARDIOGRAPHY (ECG) 06/27/2013 SERUM TROPONIN I Routine 06/26/2013 10:4 5 PM CDT SERUM TROPONIN I Routine 06/26/2013 1:58 PM CDT SERUM MAGNESIUM Routine 06/26/2013 1:02 PM CDT SERUM COMPREHENSIVE METABOLIC PANEL Routine 06/26/2013 1:02 PM CDT PLASMA PROTHROMBIN TIME (PT) Routine 06/26/2013 1:02 PM CDT PLASMA PARTIAL THROMBOPLASTIN TIME (PTT) Routine 06/26/2013 1:02 PM CDT BLOOD WBC CELL MORPHOLOGIC EXAM, AUTO Routine 06/26/2013 1:02 PM CDT BLOOD CELL COUNT (CBC) Routine 4 1:02 PM CDT XR CHEST PORTABLE Routine 06/26/2013 12: 55 PM CDT SERUM TROPONIN I Routine 06/26/2013 8:02 AM CDT BLOOD B-TYPE NATRIURETIC PEPTIDE (BNP) Routine 06/26/2013 8:02 AM CDT ELECTROCARDIOGRAPHY (ECG) 06/26/2013 ELECTROCARDIOGRAPHY (ECG) 06/26/2013 documented in this encounter Results * Serum creatine kinase (CK) MB confirmation (06/29/2013 8:27 AM CDT) CK MB 3 0 - 5 ng/ml HISTORIC AL RESULTS Serum 06/29/2013 8:27 AM CDT Silas Holland MD LAB BLOOD ORDERABLES Final Re sult Performing Organization Address [facility] Co de Phone Number HISTORICAL RESULTS * (ABNORMAL) Serum magnesium (06/29/2013 8:27 AM CDT) Pathologist [facility] Magnesium 2.8(H) 1.5 - 2.2 mg/dl HISTORICAL RESULTS Serum 06/29/2013 8:27 AM CDT Johnathon Carter LAB BLOOD ORDERABLES Final Resul t Performing Organization Address [facility] Co de Phone Number HISTORICAL RESULTS * (ABNORMAL) Blood cell count (CBC) (06/29/2013 8:27 AM CDT) WBC 9.6 4.0 - 10.5 K/cumm HISTORICAL RESULTS RBC 3.76(L) 4.20 - 5.40 M/cumm HISTORICAL RESULTS Hgb 11.8(L) 12.0 - 16.0 g/dl HISTORICAL RESULTS Hct 35.3(L) 37.0 - 47.0 % HISTORICAL RESULTS MCV 93.9 77.0 - 97.0 fl HISTORICAL RESULTS MCH 31.4 23.0 - 34.0 pg HISTORICAL RESULTS MCHC 33.4 32.0 - 36.0 g/dl HISTORICAL RESULTS Rdw 13.0 11.5 - 14.5 % HISTORICAL RESULTS Platelets 222 150 - 450 K/cumm HISTORICAL RESULTS MPV 10.1 7.4 - 10.4 fl HISTORICAL RESULTS Blood specimen (specimen) 06/29/2013 8:27 AM CDT Johnathon Carter LAB BLOOD ORDERABLES Final Resul t Performing Organization Address [facility] de Phone Number HISTORICAL RESULTS * (ABNORMAL) Blood WBC cell morphologic exam, auto (06/29/2013 8:27 AM CDT) Lymphocytes 23.9(L) 25.0 - 33.0 % HISTORICAL RESULTS Monos 11.7 1.0 - 13.0 % HISTORICAL RESULTS Neutrophils 62.7 53.0 - 69.0 % HISTORICAL RESULTS Eosinophils 1.2 0.0 - 10.0 % HISTORICAL RESULTS Basophils 0.4 0.0 - 1.0 % HISTORICAL RESULTS Immature granulocytes 0.1 0.0 - 1.0 % HISTORICAL RESULTS Lymphocytes, abs 2.3 1.2 - 3.4 K/cumm HISTORICAL RESULTS Monocytes, absolute 1.1 1.1 - 1.9 K/cumm HISTORICAL RESULTS Neutrophils, abs 6.0 1.4 - 6.5 K/cumm HISTORICAL RESULTS Eosinophils, abs 0.1 0.0 - 0.7 cells/cum m HISTORICAL RESULTS Basophils, abs 0.0 0.0 - 0.2 K/cumm HISTORICAL RESULTS Immature granulocyte, abs 0.0 0.0 - 0.0 K/cumm HISTORICAL RESULTS Blood specimen (specimen) 06/29/2013 8:27 AM CDT Johnathon Carter LAB BLOOD ORDERABLES Final Resul t Performing Organization Address [place]/[facility] de Phone Number HISTORICAL RESULTS * (ABNORMAL) Serum comprehensive metabolic panel (06/29/2013 8:27 AM CDT) BUN 14.0 6.0 - 23.0 mg/dl HISTORICAL RESULTS Sodium 141 134 - 143 mmol/L HISTORICAL RESULTS Potassium, sr 4.3 3.4 - 5.0 mmol/L HISTORICAL RESULTS Chloride 108 99 - 108 mmol/L HISTORICAL RESULTS CO2 27 23 - 32 mmol/L HISTORICAL RESULTS Glucose 152 70 - 199 mg/dl HISTORICAL RESULTS Comment: [...] glucose. New reference ranges implemented 02/01/2013. Creatinine 0.96 0.60 - 1.30 mg/dl HISTORICAL RESULTS BUN/creat ratio 15 10 - 20 HIST ORICAL RESULTS A. gap 10 7 - 14 mmol/L HISTORICAL RESULTS Protein, sr 6.6 6.4 - 8.0 g/dl HISTORICAL RESULTS Alb 3.3 3.3 - 4.5 g/dl HISTORICAL RESULTS Alb/glob ratio 1.0(L) 1.1 - 1.8 HISTO RICAL RESULTS Calcium 9.0 8.6 - 9.8 mg/dl HISTORICAL RESULTS Bilirubin 0.2 0.0 - 1.1 mg/dl HISTORICAL RESULTS Alk phos 56 44 - 125 Units/L HISTORICAL RESULTS AST 21 5 - 40 Units/L HISTORICAL RESULTS Comment:AST - NOTE REFERENCE RANGE CHANGE ALT 28 15 - 70 Units/L HISTORICAL RESULTS Serum 06/29/2013 8:27 AM CDT us Johnathon Carter LAB BLOOD ORDERABLES Final Resul t HISTORICAL RESULTS * Discharge Laboratory Cumulative Report (06/29/2013 12:00 AM CDT) 06/29/2013 Narrative HISTORICAL RESULTS - 06/30/2013 12:36 AM CDT Patient No: [id number] ? [facility] Patient Name: ABENA GIRON ? [facility] Healthcare Age: 73 YRS ?: 1940 ?Sex:F ?[address] )[phone] ?? Adm Dt: 06/26/2013 ?SONIA Ahn ??[id number] Created: 06/30/2013 ??0036 ?? Pt. Type: I ? Discharge Dt: 06/29/2013 ? Pathologists: Rachel Bell MD Admit Attend Dr: JOHNATHON CARTER MD ? BLOOD CELL COUNTS ?Collection Date: ?06/29/13 ? 06/28/13 ?Collection Time: ?0827 ? 0342 ? Ref Range: ?? Units: [4.00-10.50] /CMM ? WBC X 10^3 ?9.61 ? 7.53 [4.20-5.40] ??/CMM ? RBC X 10^6 ?3.76 L ? 4.01 L [12.0-16.0] ??G/DL ? HGB ? 11.8 L ? 12.7 [37.0-47.0] ??% ?HCT ? 35.3 L ? 36.7 L [77.0-97.0] ??FL ? MCV ? 93.9 ? 91.5 [23.0-34.0] ??PG ? MCH ? 31.4 ? 31.7 [32.0-36.0] ??% ?MCHC ?33.4 ? 34.6 [11.5-14.5] ??% ?RDW ? 13.0 ? 12.5 [150-450] ?? /CMM ? PLT X 10^3 ? 222 ?196 ?Collection Date: ?06/27/13 ? 06/26/13 ?Collection Time: ?0345 ? 1302 ? Ref Range: ?? Units: [4.00-10.50] /CMM ? WBC X 10^3 ?7.40 ? 6.89 [4.20-5.40] ??/CMM ? RBC X 10^6 ?3.89 L ? 4.42 [12.0-16.0] ??G/DL ? HGB ? 12.1 ? 13.9 [37.0-47.0] ??% ?HCT ? 35.6 L ? 39.9 [77.0-97.0] ??FL ? MCV ? 91.5 ? 90.3 [23.0-34.0] ??PG ? MCH ? 31.1 ? 31.4 [32.0-36.0] ??% ?MCHC ?34.0 ? 34.8 [11.5-14.5] ??% ?RDW ? 12.6 ? 12.4 [150-450] ?? /CMM ? PLT X 10^3 ? 205 ?223 Footnotes and Symbols: L = Low ?? CONTINUED ?Page: ?? 1 Patient No: [id number] ? [facility] Patient Name: ABENA GIRON ? [facility] Age: 73 YRS ?: 1940 ?Sex:F ?[address] )[phone] ?? Adm Dt: 06/26/2013 ?SONIA Ahn ??[id number] Created: 06/30/2013 ??0036 ?? Pt. Type: I ? Discharge Dt: 06/29/2013 ? Pathologists: Rachel Berryit Dr. Nation Dr: JOHNATHON CARTER MD ?BLOOD CELL DIFFERENTIAL ?Collection Date: ?06/29/13 ? 06/28/13 ?Collection Time: ?08 ? 0342 ? Ref Range: ?? Units: [53.0-69.0] ??% ?NEUTROPHILS ? 62.7 ? 43.4 L [25.0-33.0] ??% ?LYMPHOCYTES ? 23.9 L ? 43.3 H [1.0-13.0] ??% ?MONOCYTES ? 11.7 ?9.0 [0.0-10.0] ??% ?EOSINOPHILS ?1.2 ?3.6 [0.0-1.0] ?? % ?BASOPHILS ?0.4 ?0.4 ? /CMM ? A LYMPHOCYTE ? 2.3 ?3.3 [0.0-1.0] ?? % ?IMM GRAN % ? 0.1 ?0.3 [0.00-0.02] ??/CMM ? A IMM GRAN ?0.01 ? 0.02 [1.1-1.9] ?? /CMM ? A MONOCYTE ? 1.1 ?0.7 L [1.4-6.5] ?? /CMM ? A NEUTROPHIL ? 6.0 ?3.3 [0.0-0.7] ?? /CMM ? A EOSINOPHIL ? 0.1 ?0.3 [0.0-0.2] ?? /CMM ? A BASOPHIL ? 0.0 ?0.0 ?Collection Date: ?06/27/13 ? 06/26/13 ?Collection Time: ?0345 ? 1302 ? Ref Range: ?? Units: [53.0-69.0] ??% ?NEUTROPHILS ? 46.0 L ? 66.0 [25.0-33.0] ??% ?LYMPHOCYTES ? 39.1 H ? 25.5 [1.0-13.0] ??% ?MONOCYTES ? 10.4 ?4.9 [0.0-10.0] ??% ?EOSINOPHILS ?3.6 ?2.6 [0.0-1.0] ?? % ?BASOPHILS ?0.8 ?0.9 ? /CMM ? A LYMPHOCYTE ? 2.9 ?1.8 [0.0-1.0] ?? % ?IMM GRAN % ? 0.1 ?0.1 [0.00-0.02] ??/CMM ? A IMM GRAN ?0.01 ? 0.01 [1.1-1.9] ?? /CMM ? A MONOCYTE ? 0.8 L ?0.3 L [1.4-6.5] ?? /CMM ? A NEUTROPHIL ? 3.4 ?4.5 [0.0-0.7] ?? /CMM ? A EOSINOPHIL ? 0.3 ?0.2 [0.0-0.2] ?? /CMM ? A BASOPHIL ? 0.1 ?0.1 Footnotes and Symbols: L = Low, H = High ?? CONTINUED ?Page: ?? 2 Patient No: [id number] ? [facility] Patient Name: ABENA GIRON ? [facility] Healthcare Age: 73 YRS ?: 1940 ?Sex:F ?[address] )[phone] ?? Adm Dt: 06/26/2013 ?[place], [place] ??[id number] Created: 06/30/2013 ??0036 ?? Pt. Type: I ? Discharge Dt: 06/29/2013 ? Pathologists: Rachel Bell MD Admit Dr. Nation Dr: JOHNATHON CARTER MD ? GENERAL CHEMISTRY ?Collection Date: ?06/29/13 ? 06/28/13 ?Collection Time: ?0827 ? 0342 ? Ref Range: ?? Units: [134-143] ?? MMOL/L ? SODIUM ? 141 ?141 [3.4-5.0] ?? MMOL/L ? POTASSIUM ?4.3 ?4.1 [99.0-108.0] MMOL/L ? CHLORIDE ? 108.0 ?107.0 [23.0-32.0] ??MMOL/L ? TOTAL CO2 ? 27.3 ? 28.3 ?? [7-14] ?MMOL/L ? ANION GAP ? 10 ? 10 ??[70-199] ?? MG/DL ?GLUCOSE ?152 f ?102 f [6.4-8.0] ?? G/DL ? TOTAL PROTEIN ?6.6 ?6.4 [3.3-4.5] ?? G/DL ? ALBUMIN ?3.3 ?3.2 L [1.1-1.8] ?A/G RATIO ?1.0 L ?1.0 L [8.6-9.8] ?? MG/DL ?CALCIUM ?9.0 ?8.4 L [0.0-1.1] ?? MG/DL ?BILI TOTAL ? 0.2 ?0.4 ??[44-125] ?? U/L ?ALK PHOS ?56 ? 57 ?? [5-40] ?U/L ?AST(SGOT) ? 21 f ? 17 f ??[15-70] ?U/L ?ALT(SGPT) ? 28 f ? 22 f [6.0-23.0] ??MG/DL ?BUN ? 14.0 ?9.0 ??[10-20] ? B/C RATIO ? 15 ? 11 [0.60-1.30] ??MG/DL ?CREATININE ?0.96 ? 0.81 Footnotes and Symbols: L = Low, f = Footnote GLUCOSE (02/23/13 -- Current) Note:The glucose is assumed non fasting Fastin-99 mg/dl Random: 70-199 mg/dl Either a fasting glucose > 126 mg/dL or a random glucose > 200 mg/dL plus symptoms is diagnostic of diabetes when confirmed on another day. Fasting values > 100 mg/dl but < 125 mg/dL are diagnostic of impaired fasting glucose. New reference ranges implemented 02/01/2013. AST(SGOT) (09/02/12 -- Current) AST ??- NOTE REFERENCE RANGE CHANGE ALT(SGPT) (10/13/12 -- Current) ?? CONTINUED ?Page: ?? 3 Patient No: [id number] ? [facility] Patient Name: ABENA GIRON ? [facility] Healthcare Age: 73 YRS ?: 1940 ?Sex:F ?[address] )[phone] ?? Adm Dt: 06/26/2013 ?SONIA Ahn ??[id number] Created: 06/30/2013 ??0036 ?? Pt. Type: I ? Discharge Dt: 06/29/2013 ? Pathologists: Rachel Bell MD Admit Dr. Nation Dr: JOHNATHON CARTER MD ? GENERAL CHEMISTRY ?Collection Date: ?06/29/13 ? 06/28/13 ?Collection Time: ?08 ? 0342 ? Ref Range: ?? Units: [1.5-2.2] ?? MG/DL ?MAGNESIUM ?2.8 H ?2.0 ?Collection Date: ?06/27/13 ? 06/26/13 ?Collection Time: ?0345 ? 1302 ? Ref Range: ?? Units: [< ?100] ?? pg/ml ?BNP ?78 f [134-143] ?? MMOL/L ? SODIUM ? 141 ?138 [3.4-5.0] ?? MMOL/L ? POTASSIUM ?3.9 ?3.3 L [99.0-108.0] MMOL/L ? CHLORIDE ? 107.0 ?103.0 [23.0-32.0] ??MMOL/L ? TOTAL CO2 ? 28.1 ? 25.9 ?? [7-14] ?MMOL/L ? ANION GAP ? 10 ? 12 ??[70-199] ?? MG/DL ?GLUCOSE ?105 f ?188 f [280-301] ?? MOSM/K ? CALCULATED OSMO ?281 [6.4-8.0] ?? G/DL ? TOTAL PROTEIN ? 7.5 [3.3-4.5] ?? G/DL ? ALBUMIN ? 3.9 [1.1-1.8] ?A/G RATIO ? 1.1 [8.6-9.8] ?? MG/DL ?CALCIUM ?8.6 ?9.1 [0.0-1.1] ?? MG/DL ?BILI TOTAL ?0.4 ??[44-125] ?? U/L ?ALK PHOS ? 62 Footnotes and Symbols: L = Low, H [...] fasting glucose. New reference ranges implemented 02/01/2013. ?? CONTINUED ?Page: ?? 4 Patient No: [id number] ? [facility] Patient Name: ABENA GIRON ? [facility] Healthcare Age: 73 YRS ?: 1940 ?Sex:F ?[address] )[phone] ?? Adm Dt: 06/26/2013 ?[place], [place] ??[address] Created: 06/30/2013 ??0036 ?? Pt. Type: I ? Discharge Dt: 06/29/2013 ? Pathologists: Rachel Bell MD Admit DrDarvin Attend Dr: JOHNATHON CARTER MD ? GENERAL CHEMISTRY ?Collection Date: ?06/27/13 ? 06/26/13 ?Collection Time: ?0345 ? 1302 ? Ref Range: ?? Units: ?? [5-40] ?U/L ?AST(SGOT) ?23 f ??[15-70] ?U/L ?ALT(SGPT) ?27 f [6.0-23.0] ??MG/DL ?BUN ? 12.0 ? 13.0 ??[10-20] ? B/C RATIO ? 15 ? 15 [0.60-1.30] ??MG/DL ?CREATININE ?0.79 ? 0.87 [1.5-2.2] ?? MG/DL ?MAGNESIUM ? 1.7 ? CARDIAC CHEMISTRY ?Collection Date: ?06/29/13 ? 06/29/13 ?Collection Time: ?0827 ? 0000 ? Ref Range: ?? Units: ?? [0-5] ? NG/ML ?CKMB ? 3 ?2 Footnotes and Symbols: f = Footnote AST(SGOT) (09/02/12 -- Current) AST ??- NOTE REFERENCE RANGE CHANGE ALT(SGPT) (10/13/12 -- Current) ?? CONTINUED ?Page: ?? 5 Patient No: [id number] ? [facility] Patient Name: ABENA GIRON ? [facility] Healthcare Age: 73 YRS ?: 1940 ?Sex:F ?[address] )[phone] ?? Adm Dt: 06/26/2013 ?[place], [place] ??[address] Created: 06/30/2013 ??0036 ?? Pt. Type: I ? Discharge Dt: 06/29/2013 ? Pathologists: Rachel Bell MD Admit Attend Dr: JOHNATHON CARTER MD ? CARDIAC CHEMISTRY ?Collection Date: ?06/28/13 ? 06/27/13 ?Collection Time: ?1740 ? 0345 ? Ref Range: ?? Units: [0.00-0.10] ??NG/ML ?TROPONIN I ? 2.90 Cf ?06/27/13 0345 INITIAL CRITICAL TROPONIN PREVIOUSLY CALLED TO FLOOR ?? [0-5] ? NG/ML ?CKMB ? 1 ?Collection Date: ?06/26/13 ? 06/26/13 ?Collection Time: ?1858 ? 1302 ? Ref Range: ?? Units: [0.00-0.10] ??NG/ML ?TROPONIN I ?1.33 Cf ?0.70 Cf ?06/26/13 1858 PREVIOUS CRITICAL RESULT CALLED TO THE FLOOR ?06/26/13 1302 Critical value called with verification read back Test(s):TROPONIN Contact Name:GIOVANA MCKEON Location:ER Date/Time and Lab ID:06/26/13 13:44 [id number] Footnotes and Symbols: C = Critical, f = Footnote TROPONIN I (01/17/11 -- Current) NEGATIVE: ??0.00 - 0.10 NG/ML INDETERMINATE: ??0.11 - 0.50 NG/ML POSITIVE: ??GREATER THAN 0.50 NG/ML ?? CONTINUED ?Page: ?? 6 Patient No: [id number] ? [facility] Patient Name: ABENA GIRON ? [facility] Age: 73 YRS ?: 1940 ?Sex:F ?[address] )[phone] ?? Adm Dt: 06/26/2013 ?[place], [place] ??[address] Created: 06/30/2013 ??0036 ?? Pt. Type: I ? Discharge Dt: 06/29/2013 ? Pathologists: Rachel Bell MD Admit Dr. Chapis Santos: JOHNATHON CARTER MD ?LIPIDS ?Collection Date: ?06/27/13 ?Collection Time: ?0345 ? Ref Range: ?? Units: ? MG/DL ?CHOLESTEROL ?193 f ? MG/DL ?HDL CHOLESTEROL ? 31 f ? MG/DL ?TRIGLYCERIDES ?107 f ?06/27/13 0345 Current guidelines recommend that lipid screen be ??performed on fasting blood samples for heart risk stratification. FOOTNOTE ADDED ON ?? 06/27/13 ?? AT 0447 BY 999 ? MG/DL ?NON HDL CALC ? 162 f Footnotes and Symbols: f = Footnote CHOLESTEROL (04/05/10 -- Current) DESIRABLE = LESS THAN 200 MG/DL BORDERLINE HIGH = 200-239 MG/DL HIGH= GREATER THAN 239 MG/DL HDL CHOLESTEROL (04/05/10 -- Current) LOW HDL CHOLESTEROL = Less than 40 mg/dL NORMAL HDL CHOLESTEROL = 40-59 mg/dL HIGH HDL CHOLESTEROL = Greater than 59 mg/dL TRIGLYCERIDES (07/08/12 -- Current) NORMAL = LESS THAN 150 MG/DL BORDERLINE HIGH = 150-199 MG/DL HIGH = 200-499 MG/DL VERY HIGH = GREATER THAN OR EQUAL TO 500 MG/DL NON HDL CALC (06/29/12 -- Current) OPTIMAL LESS THAN 130 LOW RISK 130 -159 MODERATE RISK 160 - 189 HIGH RISK GREATER THAN OR EQUAL TO 190 ?? CONTINUED ?Page: ?? 7 Patient No: [id number] ? [facility] Patient Name: ABENA GIRON ? [facility] Healthcare Age: 73 YRS ?: 1940 ?Sex:F ?[address] [employer] [address] )[phone] ?? Adm Dt: 06/26/2013 ?[place], [place] ??[address] Created: 06/30/2013 ??0036 ?? Pt. Type: I ? Discharge Dt: 06/29/2013 ? Pathologists: Rachel Bell MD Admit Attend Dr: JOHNATHON CARTER MD ?LIPIDS ?Collection Date: ?06/27/13 ?Collection Time: ?0345 ? Ref Range: ?? Units: ?LDL CHOL CALC ?141 f Footnotes and Symbols: f = Footnote LDL CHOL CALC (07/09/12 -- Current) LESS THAN 100 MG/DL OPTIMAL 100 - 129 MG/DL NEAR OPTIMAL / ABOVE OPTIMAL 130 - 159 MG/DL BORDERLINE HIGH 160 - 189 MG/DL HIGH GREATER THAN OR = 190 MG/DL VERY HIGH LDL VALUES ARE NOT VALID WHEN THE TOTAL TRIGLYCERIDE IS GREATER THAN 300 MG/DL. ?? CONTINUED ?Page: ?? 8 Patient No: [id number] ? [facility] Patient Name: ABENA GIRON ? [facility] Age: 73 YRS ?: 1940 ?Sex:F ?[address] )[phone] ?? Adm Dt: 06/26/2013 ?[place], [place] ??[address] Created: 06/30/2013 ??0036 ?? Pt. Type: I ? Discharge Dt: 06/29/2013 ? Pathologists: Rachel Bell MD Admit Attend Dr: JOHNATHON CARTER MD ?COAGULATION ? Units: ?? PROTIME ?INR ?APTT PAT ? Low: ??[11.1-14.4] ? [< ?? 35.4] ? Ref Range: ? SECS ?SECS ? 04 1302 ?12.7 ? 0.99 f ? 26.6 Footnotes and Symbols: f = Footnote INR (10/11/99 -- Current) RECOMMENDED RANGES FOR PROTIME INR: NOTE: THE INR HAS BEEN VALIDATED ONLY FOR PATIENTS ON STABLE ORAL ?ANTICOAGULANT THERAPY. ?2.0 - 3.0 ??PROPHYLAXIS OF VENOUS THROMBOSIS (HIGH RISK SURGERY) ?2.0 - 3.0 ??TREATMENT OF VENOUS THROMBOSIS ?2.0 - 3.0 ??TREATMENT OF PULMONARY EMBOLISM ?2.0 - 3.0 ??PREVENTION OF SYSTEMIC EMBOLISM ? TISSUE HEART VALVES ? AMI (TO PREVENT SYSTEMIC EMBOLISM)* ? VALVULAR HEART DISEASE ? ATRIAL FIBRILLATION ?2.5 - 3.5 ??MECHANICAL PROSTHETIC VALVES (HIGH RISK) ?2.0 - 3.0 ??BILEAFLET MECHANICAL VALVE IN AORTIC POSITION *If oral anticoagulant therapy is elected to prevent recurrent myocardial infarction, an INR of 2.5 to 3.5 is recommended, consistent with Food and Drug Administration recommendations. ?? END OF CHART ? Page: ?? 9 Historical Provider LAB BLOOD ORDERABLES Roshni l Result Performing Organization Address [facility] de Phone Number HISTORICAL RESULTS * Serum creatine kinase (CK) MB confirmation (06/29/2013 12:00 AM CDT) CK MB 2 0 - 5 ng/ml HISTORIC AL RESULTS Serum 06/29/2013 Silas Holland MD LAB BLOOD ORDERABLES Final Re sult Performing Organization Address [facility] de Phone Number HISTORICAL RESULTS * ELECTROCARDIOGRAPHY (ECG) (06/29/2013) Narrative 06/29/2013 Ordered by an unspecified provider. Historical Provider ECG ORDERABLES Final Res ult * Serum creatine kinase (CK) MB confirmation (06/28/2013 5:40 PM CDT) CK MB 1 0 - 5 ng/ml HISTORIC AL RESULTS Serum 06/28/2013 5:40 PM CDT Silas Holland MD LAB BLOOD ORDERABLES Final Re sult HISTORICAL RESULTS * CORONARY ANGIOGRAPHY [id number] (06/28/2013 2:55 PM CDT) Anatomical Region Laterality Modality X-Ray Angiograph y 06/28/2013 2:55 PM CDT Narrative 07/01/2013 10:41 AM CDT HEART CATH ??Acc#: ??[id number] DATE OF EXAM: ??Jun ??2013 CLINICAL HISTORY: RESULT: LEFT HEART CARDIAC CATHETERIZATION REPORT INDICATIONS: Abena Giron is a 73-year-old female with suspicious sounding chest pain and shortness of breath with exertion. ??She came in and was ruled in for a myocardial infarction by elevated troponin. ??She ??understands the risks of the cardiac cath to include the following, but not limited to the following: ??, cerebrovascular accident, myocardial infarction, infection, vascular problems, dye reaction, dysrhythmias, pain, bleeding, renal failure, need for urgent CABG or stent placement. PROCEDURE: The patient was brought down to the [facility] where her right groin was prepped and draped in the usual fashion. ??After infiltration with 1% Lidocaine, a 5 [place]er femoral artery sheath was placed over a J-tipped guidewire without any difficulties. ??Next, a 5 [place]er JR4 catheter was placed into the left ventricle for hemodynamics and pullback. ??The same catheter was then attempted for right coronary artery but this was difficult because of spasm and a smallish RCA. ??I also went in there with a Ramakrishna right catheter and also an PATRICIA catheter down the line. ??I even gave intracoronary Nitroglycerin to the RCA. ??This made the vessel larger but I still believe there is a 30% ostial RCA stenosis. ??A 5 [place] Islander JL 4 catheter was then used for left main injection done in multiple views. ??Finally, a 5 [place]er angled pigtail catheter was used for left ventriculography which was performed in the 30 SEGOVIA position. We elected on doing percutaneous intervention to the distal circumflex. The 5 [place]er sheath was changed to a 6 [place] Islander sheath. ??Guiding catheter was a 6 [place]er JL 4 guiding catheter. A Luge guidewire was then placed into the circumflex, through the lesion and parked in the distal circumflex without any difficulties. ??Direct stenting was performed carefully under fluoroscopy using a Xience 2.5 x 8 mm stent. It was fully inflated at 14 atmospheres. ??The patient had her usual chest burning and chest pressure. It went away after a few minutes. ??There were no hemodynamic problems. ??There was no evidence of dissection or loss of branches or distal embolization. ??CRISTINA grade III flow was noted throughout the circumflex system for several minutes after the procedure was done. ??Again, no EKG ??changes or hemodynamic problems. A closure device was deployed followed by manual pressure for 10 minutes. Fluoro time was 9.9 minutes with a total dye load of 199 ml of Optiray 320. FINDINGS: 1. Hemodynamics as follows: 1. Hemodynamics as follows: Left ventricular systolic pressure: 205 mmHg Left ventricular end diastolic pressure: ?? 18 mmHg Aortic systolic pressure: 205 mmHg Aortic diastolic pressure: ?? 80 mmHg There is no gradient across the aortic valve upon pullback. 2. Injection of the right coronary artery reveals this to be smallish in size with a 30% tubular proximal RCA stenosis. ??It kept dampening with different catheter engagement. ??Intracoronary Nitroglycerin had to be given. 3. Injection of left main reveals no ramus. ??The LAD is large with diffuse 25% proximal LAD stenosis. ??There is a large branching first diagonal branch. 4. The circumflex also comes from the left main and has a tight 99% mid circumflex stenosis between the two large obtuse marginal branches. 5. Left ventriculography reveals no mitral regurgitation. There is normal global left ventricular function with no regional wall motion abnormalities. IMPRESSION: 1. ??Severe one vessel coronary artery disease in this right-dominant system with subtotal stenosis of the mid circumflex. ??This was given a Xience stent with excellent results. ??30% proximal RCA stenosis is also noted with spasm in that area. 2. ??No mitral regurgitation. 3. ??Normal global LV function with no regional wall motion abnormalities. Diet, exercise and therapeutic lifestyle changes discussed with the patient. ??Hopefully to go home tomorrow with at least one year of Plavix for the drug eluting stent. Interpreting Physician: ??DR SILAS HOLLAND M.D. ??Read on: ??Jun ??2013 9:57A Transcribed by: ??kathleen ??On: Jun ??2013 ??9:57A Approved Electronically by: ??MICHELA Laird, DR ROSEN ??on: ??Jul 01 2013 10:41A Ordering DR: DR SILAS HOLLAND Attending DR: JOHNATHON CARTER Procedure Note Provider, MD Rosalinda - 07/15/2016 HEART CATH Acc#: [id number] DATE OF EXAM: Jun 28 2013 CLINICAL HISTORY: RESULT: LEFT HEART CARDIAC CATHETERIZATION REPORT INDICATIONS: Abena Giron is a 73-year-old female with suspicious sounding chestpain and shortness of breath with exertion. She came in and was ruled infor a myocardial infarction by elevated troponin. She understands therisks of the cardiac cath to include the following, but not limited to the following: , cerebrovascular accident, myocardial infarction,infection, vascular problems, dye reaction, dysrhythmias, pain, bleeding,renal failure, need for urgent CABG or stent placement. PROCEDURE: The patient was brought down to the [facility] Technical Director where her rightgroin was prepped and draped in the usual fashion. After infiltrationwith 1% Lidocaine, a 5 [place]er femoral artery sheath was placed over aJ-tipped guidewire without any difficulties. Next, a 5 [place]er [id number] was placed into the left ventricle for hemodynamics and pullback.The same catheter was then attempted for right coronary artery but thiswas difficult because of spasm and a smallish RCA. I also went in therewith a Ramakrishna right catheter and also an PATRICIA catheter down the line. Ieven gave intracoronary Nitroglycerin to the RCA. This made the vessellarger but I still believe there is a 30% ostial RCA stenosis. A 5 FrenchJL 4 catheter was then used for left main injection done in multipleviews. Finally, a 5 [place]er angled pigtail catheter was used for leftventriculography which was performed in the 30 SEGOVIA position. We elected ondoing percutaneous intervention to the distal circumflex. The 5 [place]er sheath was changed to a 6 [place] Islander sheath. Guiding catheter was a 6French JL 4 guiding catheter. A Luge guidewire was then placed into thecircumflex, through the lesion and parked in the distal circumflex withoutany difficulties. Direct stenting was performed carefully underfluoroscopy using a Xience 2.5 x 8 mm stent. It was fully inflated at 14atmospheres. The patient had her usual chest burning and chest pressure.It went away after a few minutes. There were no hemodynamic problems.There was no evidence of dissection or loss of branches or distalembolization. CRISTINA grade III flow was noted throughout the circumflexsystem for several minutes after the procedure was done. Again, no EKGchanges or hemodynamic problems. A closure device was deployed followed bymanual pressure for 10 minutes. Fluoro time was 9.9 minutes with a totaldye load of 199 ml of Optiray 320. FINDINGS: 1. Hemodynamics as follows: 1. Hemodynamics as follows: Left ventricular systolic pressure: 205 mmHg Left ventricular end diastolic pressure: 18 mmHg Aortic systolic pressure: 205 mmHg Aortic diastolic pressure: 80 mmHg There is no gradient across theaortic valve upon pullback. 2. Injection of the right coronary artery reveals this to be smallish insize with a 30% tubular proximal RCA stenosis. It kept dampening withdifferent catheter engagement. Intracoronary Nitroglycerin had to begiven. 3. Injection of left main reveals no ramus. The LAD is large with udrzuxy54% proximal LAD stenosis. There is a large branching first diagonalbranch. 4. The circumflex also comes from the left main and has a tight 99% midcircumflex stenosis between the two large obtuse marginal branches. 5. Left ventriculography reveals no mitral regurgitation. There is normalglobal left ventricular function with no regional wall motionabnormalities. IMPRESSION: 1. Severe one vessel coronary artery disease in this right-dominantsystem with subtotal stenosis of the mid circumflex. This was given aXience stent with excellent results. 30% proximal RCA stenosis is alsonoted with spasm in that area. 2. No mitral regurgitation. 3. Normal global LV function with no regional wall motion abnormalities.Diet, exercise and therapeutic lifestyle changes discussed with thepatient. Hopefully to go home tomorrow with at least one year of Plavixfor the drug eluting stent. Interpreting Physician: DR SILAS HOLLAND M.D. Read on: Jun 29 20139:57A Transcribed by: kathleen On: Jun 29 2013 9:57A Approved Electronically by: MICHELA Laird, DR ROSEN on: Jul 01 201310:41A Ordering DR: DR SILAS HOLLAND Attending DR: JOHNATHON CARTER us Historical Provider MD [facility] CARDIAC CATH PROCEDURE S Final Result * Transesophageal Echocardiogram (EVELYN) Complete (06/28/2013 10:17 AM CDT) Anatomical Region Laterality Modality Ultrasound 06/28/2013 10:1 7 AM CDT Narrative 07/01/2013 10:41 AM CDT ECHO CMPLT W DOPP WO CONT ??Acc#: ??[id number] ECHO WITH DOPPLER ORDER ONLY ??Acc#: ??[id number] DATE OF EXAM: ??Jun ??2013 CLINICAL HISTORY: Angina. RESULT: 2D, M-mode and Doppler echocardiogram was performed. ??This is a technically adequate study. There is good LV function with no regional wall motion abnormalities. Ejection fraction is estimated at 55-60%. ??No LV mural thrombus or valvular vegetation. ??Mitral, tricuspid, pulmonic and aortic valve leaflets appear to be opening and closing well. Doppler echocardiogram reveals an aortic valve velocity of 1.4 meters per second and a pulmonic valve velocity of 1.0 meters per second. ??There is mild mitral regurgitation. IMPRESSION: 1. NORMAL GLOBAL LV FUNCTION WITH ESTIMATED EJECTION FRACTION OF 55-60%. 2. NO LV MURAL THROMBUS OR VALVULAR VEGETATION. 3. MITRAL REGURGITATION, MILD. Interpreting Physician: ??DR SILAS HOLLAND M.D. ??Read on: ??Jun ??2013 6:05P Transcribed by: ??va ??On: Jun ??2013 ??6:05P Approved Electronically by: ??MICHELA Laird, DR ROSEN ??on: ??Jul 01 2013 10:41A Ordering DR: ??CHARO Attending DR: JOHNATHON CARTER Procedure Note Provider, MD Rosalinda - 07/15/2016 ECHO CMPLT W DOPP WO CONT Acc#: [id number] ECHO WITH DOPPLER ORDER ONLY Acc#: [id number] DATE OF EXAM: Jun 28 2013 CLINICAL HISTORY: Angina. RESULT: 2D, M-mode and Doppler echocardiogram was performed. This is atechnically adequate study. There is good LV function with no regionalwall motion abnormalities. Ejection fraction is estimated at 55-60%. NoLV mural thrombus or valvular vegetation. Mitral, tricuspid, pulmonic andaortic valve leaflets appear to be opening and closing well. Dopplerechocardiogram reveals an aortic valve velocity of 1.4 meters per secondand a pulmonic valve velocity of 1.0 meters per second. There is mildmitral regurgitation. IMPRESSION: 1. NORMAL GLOBAL LV FUNCTION WITH ESTIMATED EJECTION FRACTION OF 55-60%. 2. NO LV MURAL THROMBUS OR VALVULAR VEGETATION. 3. MITRAL REGURGITATION, MILD. Interpreting Physician: DR SILAS HOLLAND M.D. Read on: Jun 28 20136:05P Transcribed by: babita On: Jun 28 2013 6:05P Approved Electronically by: MICHELA Laird, DR ROSEN on: Jul 01 201310:41A Ordering DR: CHARO Attending DR: JOHNATHON CARTER Historical Provider CV ECHO PROCEDURES Final Result * Intracardiac Echocardiogram (06/28/2013 8:35 AM CDT) Anatomical Region Laterality Modality X-Ray Angiograph y 06/28/2013 8:35 AM CDT Result [facility] Historical Provider CV CARDIAC CATH PROCEDURE S Final Result * Serum magnesium (06/28/2013 3:42 AM CDT) Magnesium 2.0 1.5 - 2.2 mg/dl HISTORICAL RESULTS Serum 06/28/2013 3:42 AM CDT Result [facility] Johnathon Carter LAB BLOOD ORDERABLES Final Resul t HISTORICAL RESULTS * (ABNORMAL) Blood cell count (CBC) (06/28/2013 3:42 AM CDT) WBC 7.5 4.0 - 10.5 K/cumm HISTORICAL RESULTS RBC 4.01(L) 4.20 - 5.40 M/cumm HISTORICAL RESULTS Hgb 12.7 12.0 - 16.0 g/dl HISTORICAL RESULTS Hct 36.7(L) 37.0 - 47.0 % HISTORICAL RESULTS MCV 91.5 77.0 - 97.0 fl HISTORICAL RESULTS MCH 31.7 23.0 - 34.0 pg HISTORICAL RESULTS MCHC 34.6 32.0 - 36.0 g/dl HISTORICAL RESULTS Rdw 12.5 11.5 - 14.5 % HISTORICAL RESULTS Platelets 196 150 - 450 K/cumm HISTORICAL RESULTS MPV 10.6(H) 7.4 - 10.4 fl HISTORICAL RESULTS Blood specimen (specimen) 06/28/2013 3:42 AM CDT Johnathon Carter LAB BLOOD ORDERABLES Final Resul t Performing Organization Address [facility] de Phone Number HISTORICAL RESULTS * (ABNORMAL) Blood WBC cell morphologic exam, auto (06/28/2013 3:42 AM CDT) Lymphocytes 43.3(H) 25.0 - 33.0 % HISTORICAL RESULTS Monos 9.0 1.0 - 13.0 % HISTORICAL RESULTS Neutrophils 43.4(L) 53.0 - 69.0 % HISTORICAL RESULTS Eosinophils 3.6 0.0 - 10.0 % HISTORICAL RESULTS Basophils 0.4 0.0 - 1.0 % HISTORICAL RESULTS Immature granulocytes 0.3 0.0 - 1.0 % HISTORICAL RESULTS Lymphocytes, abs 3.3 1.2 - 3.4 K/cumm HISTORICAL RESULTS Monocytes, absolute 0.7(L) 1.1 - 1.9 K/cumm HISTORICAL RESULTS Neutrophils, abs 3.3 1.4 - 6.5 K/cumm HISTORICAL RESULTS Eosinophils, abs 0.3 0.0 - 0.7 cells/cum m HISTORICAL RESULTS Basophils, abs 0.0 0.0 - 0.2 K/cumm HISTORICAL RESULTS Immature granulocyte, abs 0.0 0.0 - 0.0 K/cumm HISTORICAL RESULTS Blood specimen (specimen) 06/28/2013 3:42 AM CDT Johnathon Raul LAB BLOOD ORDERABLES Final Resul t HISTORICAL RESULTS * (ABNORMAL) Serum comprehensive metabolic panel (06/28/2013 3:42 AM CDT) BUN 9.0 6.0 - 23.0 mg/dl HISTORICAL RESULTS Sodium 141 134 - 143 mmol/L HISTORICAL RESULTS Potassium, sr 4.1 3.4 - 5.0 mmol/L HISTORICAL RESULTS Chloride 107 99 - 108 mmol/L HISTORICAL RESULTS CO2 28 23 - 32 mmol/L HISTORICAL RESULTS Glucose 102 70 - 199 mg/dl HISTORICAL RESULTS Comment: [...] glucose. New reference ranges implemented 02/01/2013. Creatinine 0.81 0.60 - 1.30 mg/dl HISTORICAL RESULTS BUN/creat ratio 11 10 - 20 HIST ORICAL RESULTS A. gap 10 7 - 14 mmol/L HISTORICAL RESULTS Protein, sr 6.4 6.4 - 8.0 g/dl HISTORICAL RESULTS Alb 3.2(L) 3.3 - 4.5 g/dl HISTORICAL RESULTS Alb/glob ratio 1.0(L) 1.1 - 1.8 HISTO RICAL RESULTS Calcium 8.4(L) 8.6 - 9.8 mg/dl HISTORICAL RESULTS Bilirubin 0.4 0.0 - 1.1 mg/dl HISTORICAL RESULTS Alk phos 57 44 - 125 Units/L HISTORICAL RESULTS AST 17 5 - 40 Units/L HISTORICAL RESULTS Comment:AST - NOTE REFERENCE RANGE CHANGE ALT 22 15 - 70 Units/L HISTORICAL RESULTS Serum 06/28/2013 3:42 AM CDT Johnathon Carter LAB BLOOD ORDERABLES Final Resul t HISTORICAL RESULTS * ELECTROCARDIOGRAPHY (ECG) (06/28/2013) Narrative 06/28/2013 Ordered by an unspecified provider. us Historical Provider ECG ORDERABLES Final Res ult * Serum basic metabolic panel (06/27/2013 3:45 AM CDT) BUN 12.0 6.0 - 23.0 mg/dl HISTORICAL RESULTS Sodium 141 134 - 143 mmol/L HISTORICAL RESULTS Potassium, sr 3.9 3.4 - 5.0 mmol/L HISTORICAL RESULTS Chloride 107 99 - 108 mmol/L HISTORICAL RESULTS CO2 28 23 - 32 mmol/L HISTORICAL RESULTS Glucose 105 70 - 199 mg/dl HISTORICAL RESULTS Comment: [...] glucose. New reference ranges implemented 02/01/2013. Creatinine 0.79 0.60 - 1.30 mg/dl HISTORICAL RESULTS BUN/creat ratio 15 10 - 20 HIST ORICAL RESULTS A. gap 10 7 - 14 mmol/L HISTORICAL RESULTS Osmo, calc 281 280 - 301 mOsm/kg HISTORICAL RESULTS Calcium 8.6 8.6 - 9.8 mg/dl HISTORICAL RESULTS Serum 06/27/2013 3:45 AM CDT us Beth Mancilla MD LAB BLOOD ORDERABLES Final Result HISTORICAL RESULTS * Serum lipid panel (06/27/2013 3:45 AM CDT) Cholesterol 193 mg/dl HISTORIC AL RESULTS Comment: DESIRABLE = LESS THAN 200 MG/DL BORDERLINE HIGH = 200-239 MG/DL HIGH= GREATER THAN 239 MG/DL Triglycerides 107 mg/dl HISTOR ICAL RESULTS Comment: Current guidelines recommend that lipid screen be performed on fasting blood samples for heart risk stratification. NORMAL = LESS THAN 150 MG/DL BORDERLINE HIGH = 150-199 MG/DL HIGH = 200-499 MG/DL VERY HIGH = GREATER THAN OR EQUAL TO 500 MG/DL HDL 31 mg/dl HISTORICAL RESULTS Comment: LOW HDL CHOLESTEROL = Less than 40 mg/dL NORMAL HDL CHOLESTEROL = 40-59 mg/dL HIGH HDL CHOLESTEROL = Greater than 59 mg/dL Non-HDL cholesterol, calculated 162 mg/dl HISTORICAL RESULTS Comment: OPTIMAL LESS THAN 130 LOW RISK 130 -159 MODERATE RISK 160 - 189 HIGH RISK GREATER THAN OR EQUAL TO 190 LDL, calculated 141 HIST ORICAL RESULTS Comment: LESS THAN 100 MG/DL OPTIMAL 100 - 129 MG/DL NEAR OPTIMAL / ABOVE OPTIMAL 130 - 159 MG/DL BORDERLINE HIGH 160 - 189 MG/DL HIGH GREATER THAN OR = 190 MG/DL VERY HIGH LDL VALUES ARE NOT VALID WHEN THE TOTAL TRIGLYCERIDE IS GREATER THAN 300 MG/DL. Serum 06/27/2013 3:45 AM CDT us Beth Mancilla MD LAB BLOOD ORDERABLES Final Result Performing Organization Address [facility] de Phone Number HISTORICAL RESULTS * (ABNORMAL) Blood cell count (CBC) (06/27/2013 3:45 AM CDT) WBC 7.4 4.0 - 10.5 K/cumm HISTORICAL RESULTS RBC 3.89(L) 4.20 - 5.40 M/cumm HISTORICAL RESULTS Hgb 12.1 12.0 - 16.0 g/dl HISTORICAL RESULTS Hct 35.6(L) 37.0 - 47.0 % HISTORICAL RESULTS MCV 91.5 77.0 - 97.0 fl HISTORICAL RESULTS MCH 31.1 23.0 - 34.0 pg HISTORICAL RESULTS MCHC 34.0 32.0 - 36.0 g/dl HISTORICAL RESULTS Rdw 12.6 11.5 - 14.5 % HISTORICAL RESULTS Platelets 205 150 - 450 K/cumm HISTORICAL RESULTS MPV 10.2 7.4 - 10.4 fl HISTORICAL RESULTS Blood specimen (specimen) 06/27/2013 3:45 AM CDT Beth Mancilla MD LAB BLOOD ORDERABLES Final Result Performing Organization Address [facility] de Phone Number HISTORICAL RESULTS * (ABNORMAL) Blood WBC cell morphologic exam, auto (06/27/2013 3:45 AM CDT) Lymphocytes 39.1(H) 25.0 - 33.0 % HISTORICAL RESULTS Monos 10.4 1.0 - 13.0 % HISTORICAL RESULTS Neutrophils 46.0(L) 53.0 - 69.0 % HISTORICAL RESULTS Eosinophils 3.6 0.0 - 10.0 % HISTORICAL RESULTS Basophils 0.8 0.0 - 1.0 % HISTORICAL RESULTS Immature granulocytes 0.1 0.0 - 1.0 % HISTORICAL RESULTS Lymphocytes, abs 2.9 1.2 - 3.4 K/cumm HISTORICAL RESULTS Monocytes, absolute 0.8(L) 1.1 - 1.9 K/cumm HISTORICAL RESULTS Neutrophils, abs 3.4 1.4 - 6.5 K/cumm HISTORICAL RESULTS Eosinophils, abs 0.3 0.0 - 0.7 cells/cum m HISTORICAL RESULTS Basophils, abs 0.1 0.0 - 0.2 K/cumm HISTORICAL RESULTS Immature granulocyte, abs 0.0 0.0 - 0.0 K/cumm HISTORICAL RESULTS Blood specimen (specimen) 06/27/2013 3:45 AM CDT Beth Mancilla MD LAB BLOOD ORDERABLES Final Result Performing Organization Address [facility] de Phone Number HISTORICAL RESULTS * ELECTROCARDIOGRAPHY (ECG) (06/27/2013) Narrative 06/27/2013 Ordered by an unspecified provider. [facility] Provider MD ECG ORDERABLES Final Res ult * (ABNORMAL) Serum troponin I (06/26/2013 10:45 PM CDT) Troponin I 2.90(VH) 0.00 - 0.10 ng/ml HISTORICAL RESULTS Serum 06/26/2013 10:4 5 PM CDT Narrative HISTORICAL RESULTS - 06/26/2013 11:47 PM CDT INITIAL CRITICAL TROPONIN PREVIOUSLY CALLED TO FLOOR NEGATIVE: ??0.00 - 0.10 NG/ML INDETERMINATE: ??0.11 - 0.50 NG/ML POSITIVE: ??GREATER THAN 0.50 NG/ML Beth Mancilla MD LAB BLOOD ORDERABLES Final Result Performing Organization Address [facility] de Phone Number HISTORICAL RESULTS * (ABNORMAL) Serum troponin I (06/26/2013 1:58 PM CDT) Troponin I 1.33(VH) 0.00 - 0.10 ng/ml HISTORICAL RESULTS Serum 06/26/2013 1:58 PM CDT Narrative HISTORICAL RESULTS - 06/26/2013 2:42 PM CDT PREVIOUS CRITICAL RESULT CALLED TO THE FLOOR NEGATIVE: ??0.00 - 0.10 NG/ML INDETERMINATE: ??0.11 - 0.50 NG/ML POSITIVE: ??GREATER THAN 0.50 NG/ML Beth Mancilla MD LAB BLOOD ORDERABLES Final Result Performing Organization Address [facility] de Phone Number HISTORICAL RESULTS * Plasma partial thromboplastin time (PTT) (06/26/2013 1:02 PM CDT) APTT 26.6 -<35. seconds HISTOR ICAL RESULTS Plasma 06/26/2013 1:02 PM CDT Beth Mancilla MD LAB BLOOD ORDERABLES Final Result Performing Organization Address [facility] de Phone Number HISTORICAL RESULTS * Plasma prothrombin time (PT) (06/26/2013 1:02 PM CDT) Prothrombin time (PT) 12.7 11.1 - 14.4 seconds HISTORICAL RESULTS INR 0.99 HISTORICAL RESULTS Comment: RECOMMENDED RANGES FOR PROTIME INR: NOTE: THE INR HAS BEEN VALIDATED ONLY FOR PATIENTS ON STABLE ORAL ?ANTICOAGULANT THERAPY. ?2.0 - 3.0 ??PROPHYLAXIS OF VENOUS THROMBOSIS (HIGH RISK SURGERY) ?2.0 - 3.0 ??TREATMENT OF VENOUS THROMBOSIS ?2.0 - 3.0 ??TREATMENT OF PULMONARY EMBOLISM ?2.0 - 3.0 ??PREVENTION OF SYSTEMIC EMBOLISM ? TISSUE HEART VALVES ? AMI (TO PREVENT SYSTEMIC EMBOLISM)* ? VALVULAR HEART DISEASE ? ATRIAL FIBRILLATION ?2.5 - 3.5 ??MECHANICAL PROSTHETIC VALVES (HIGH RISK) ?2.0 - 3.0 ??BILEAFLET MECHANICAL VALVE IN AORTIC POSITION *If oral anticoagulant therapy is elected to prevent recurrent myocardial infarction, an INR of 2.5 to 3.5 is recommended, consistent with Food and Drug Administration recommendations. Plasma 06/26/2013 1:02 PM CDT us Beth Mancilla MD LAB BLOOD ORDERABLES Final Result Performing Organization Address [facility] de Phone Number HISTORICAL RESULTS * Serum magnesium (06/26/2013 1:02 PM CDT) Magnesium 1.7 1.5 - 2.2 mg/dl HISTORICAL RESULTS Serum 06/26/2013 1:02 PM CDT us Beth Mancilla MD LAB BLOOD ORDERABLES Final Result Performing Organization Address [facility] Phone Number HISTORICAL RESULTS * Blood cell count (CBC) (06/26/2013 1:02 PM CDT) WBC 6.9 4.0 - 10.5 K/cumm HISTORICAL RESULTS RBC 4.42 4.20 - 5.40 M/cumm HISTORICAL RESULTS Hgb 13.9 12.0 - 16.0 g/dl HISTORICAL RESULTS Hct 39.9 37.0 - 47.0 % HISTORICAL RESULTS MCV 90.3 77.0 - 97.0 fl HISTORICAL RESULTS MCH 31.4 23.0 - 34.0 pg HISTORICAL RESULTS MCHC 34.8 32.0 - 36.0 g/dl HISTORICAL RESULTS Rdw 12.4 11.5 - 14.5 % HISTORICAL RESULTS Platelets 223 150 - 450 K/cumm HISTORICAL RESULTS MPV 10.1 7.4 - 10.4 fl HISTORICAL RESULTS Blood specimen (specimen) 06/26/2013 1:02 PM CDT us Beth Mancilla MD LAB BLOOD ORDERABLES Final Result Performing Organization Address [facility] de Phone Number HISTORICAL RESULTS * (ABNORMAL) Blood WBC cell morphologic exam, auto (06/26/2013 1:02 PM CDT) Lymphocytes 25.5 25.0 - 33.0 % HISTORICAL RESULTS Monos 4.9 1.0 - 13.0 % HISTORICAL RESULTS Neutrophils 66.0 53.0 - 69.0 % HISTORICAL RESULTS Eosinophils 2.6 0.0 - 10.0 % HISTORICAL RESULTS Basophils 0.9 0.0 - 1.0 % HISTORICAL RESULTS Immature granulocytes 0.1 0.0 - 1.0 % HISTORICAL RESULTS Lymphocytes, abs 1.8 1.2 - 3.4 K/cumm HISTORICAL RESULTS Monocytes, absolute 0.3(L) 1.1 - 1.9 K/cumm HISTORICAL RESULTS Neutrophils, abs 4.5 1.4 - 6.5 K/cumm HISTORICAL RESULTS Eosinophils, abs 0.2 0.0 - 0.7 cells/cumm HISTORICAL RESULTS Basophils, abs 0.1 0.0 - 0.2 K/cumm HISTORICAL RESULTS Immature granulocyte, abs 0.0 0.0 - 0.0 K/cumm HISTORICAL RESULTS Blood specimen (specimen) 06/26/2013 1:02 PM CDT Beth Mancilla MD LAB BLOOD ORDERABLES Final Result HISTORICAL RESULTS * (ABNORMAL) Serum comprehensive metabolic panel (06/26/2013 1:02 PM CDT) BUN 13.0 6.0 - 23.0 mg/dl HISTORICAL RESULTS Sodium 138 134 - 143 mmol/L HISTORICAL RESULTS Potassium, sr 3.3(L) 3.4 - 5.0 mmol/L HISTORICAL RESULTS Chloride 103 99 - 108 mmol/L HISTORICAL RESULTS CO2 26 23 - 32 mmol/L HISTORICAL RESULTS Glucose 188 70 - 199 mg/dl HISTORICAL RESULTS Comment: [...] - 1.30 mg/dl HISTORICAL RESULTS BUN/creat ratio 15 10 - 20 HIST ORICAL RESULTS A. gap 12 7 - 14 mmol/L HISTORICAL RESULTS Protein, sr 7.5 6.4 - 8.0 g/dl HISTORICAL RESULTS Alb 3.9 3.3 - 4.5 g/dl HISTORICAL RESULTS Alb/glob ratio 1.1 1.1 - 1.8 HISTO RICAL RESULTS Calcium 9.1 8.6 - 9.8 mg/dl HISTORICAL RESULTS Bilirubin 0.4 0.0 - 1.1 mg/dl HISTORICAL RESULTS Alk phos 62 44 - 125 Units/L HISTORICAL RESULTS AST 23 5 - 40 Units/L HISTORICAL RESULTS Comment:AST - NOTE REFERENCE RANGE CHANGE ALT 27 15 - 70 Units/L HISTORICAL RESULTS Serum 06/26/2013 1:02 PM CDT us Beht Mancilla MD LAB BLOOD ORDERABLES Final Result HISTORICAL RESULTS * XR CHEST PORTABLE (06/26/2013 12:55 PM CDT) Anatomical Region Laterality Modality Body N/A Radiographic Patricia ging 06/26/2013 12:5 5 PM CDT Narrative 06/27/2013 11:44 AM CDT XR Chest Portable ? [id number] ??Acc#: ??[id number] DATE OF EXAM: ??Apr ??2013 CLINICAL HISTORY: Chest pain. RESULT: PORTABLE CHEST 1250 HOURS One view of the chest demonstrates clear lungs bilaterally with no focal infiltrates. ??The heart size and pulmonary vascularity are normal. IMPRESSION: NO ACTIVE DISEASE. Interpreting Physician: ??DR JAVAN MCKEON M.D. ??Read on: ??Apr ??2013 10:14A Transcribed by: ??va ??On: Jun ??2013 10:56A Approved Electronically by: ??MIKE Laird, DR EDOUARD ??on: ??Apr ??2013 11:44A Ordering DR: ??Charo Attending DR: DR RYAN CASTREJON Procedure Note Provider, MD Rosalinda - 07/15/2016 XR Chest Portable [id number] Acc#: [id number] DATE OF EXAM: Jun 26 2013 CLINICAL HISTORY: Chest pain. RESULT: PORTABLE CHEST 1250 HOURS One view of the chest demonstrates clear lungsbilaterally with no focal infiltrates. The heart size and pulmonaryvascularity are normal. IMPRESSION: NO ACTIVE DISEASE. Interpreting Physician: DR JAVAN MCKEON M.D. Read on: Jun 27 201310:14A Transcribed by: babita On: Jun 27 2013 10:56A Approved Electronically by: MIKE Laird, DR EDOUARD on: Jun 27 201311:44A Ordering MAGGIE Mancilla Attending DR: DR RYAN CASTREJON Historical Provider IMG XR PROCEDURES Final R esult * Blood B-type natriuretic peptide (BNP) (06/26/2013 8:02 AM CDT) BNP 78 -<100 pg/ml HISTORIC AL RESULTS Blood specimen (specimen) 06/26/2013 8:02 AM CDT Narrative HISTORICAL RESULTS - 06/26/2013 9:07 AM CDT BNP REFERENCE RANGE <100 pg/ml Beth Mancilla MD LAB BLOOD ORDERABLES Final Result HISTORICAL RESULTS * (ABNORMAL) Serum troponin I (06/26/2013 8:02 AM CDT) Troponin I 0.70(VH) 0.00 - 0.10 ng/ml HISTORICAL RESULTS Serum 06/26/2013 8:02 AM CDT Narrative HISTORICAL RESULTS - 06/26/2013 8:47 AM CDT Critical value called with verification read back Test(s):TROPONIN Contact Name:GIOVANA MCKEON Location:ER Date/Time and Lab ID:06/26/13 13:44 [id number] NEGATIVE: ??0.00 - 0.10 NG/ML INDETERMINATE: ??0.11 - 0.50 NG/ML POSITIVE: ??GREATER THAN 0.50 NG/ML Beth Mancilla MD LAB BLOOD ORDERABLES Final Result HISTORICAL RESULTS * ELECTROCARDIOGRAPHY (ECG) (06/26/2013) Narrative 06/26/2013 Ordered by an unspecified provider. Historical Provider ECG ORDERABLES Final Res ult * ELECTROCARDIOGRAPHY (ECG) (06/26/2013) Narrative 06/26/2013 Ordered by an unspecified provider. us Historical Provider ECG ORDERABLES Final Res ult documented in this encounter Visit Diagnoses Diagnosis Acute subendocardial infarction, initial episode of care (HCC) Acute myocardial infarction, subendocardial infarction, initial episode of care Other specified cardiac dysrhythmias Pure hypercholesterolemia Coronary atherosclerosis of [place] coronary artery Other and unspecified hyperlipidemia Essential hypertension Unspecified essential hypertension Generalized anxiety disorder Esophageal reflux Hypopotassemia Panic disorder without agoraphobia Obesity Obesity, unspecified documented in this encounter Care Teams Conditioner Tumbler Relationship Specialty Start Date End Date Ryan Castrejon MD PCP - General 03/31/13 05/28/16 documented as of this encounter
--- OUTSIDE RECORDS SUMMARY | 2024-04-11 06:41 | XMS_ITS | Encounter Summary ---
Author Organization [facility] Healthcare Address [address] [place] [address] Care Team Providers Care Service Unit Operator Name Role Phone Ronald Castrejon MD Primary Care Provider [phone] Encounter Details Date Type Department Care Team (Late st Contact Info) Description 08/28/2013 7:04 AM CDT - 08/28/2013 10:14 AM CDT Hospital Encounter [facility] Rashid Ceja MD [address] [place] [id number] Essential hypertension; Old myocardial infarction; Postsurgical percutaneous transluminal coronary angioplasty status; Personal history of tobacco use, presenting hazards to health Social History Tobacco Use Types Packs/Day Years Used Date Smoking Tobacco: Former Cigarettes Q uit: 03/24/1969 Alcohol Use Standard Drinks/Week Comments No 0 (1 standard drink = 0.6 oz pur e alcohol) Comments Unknown Sex and Gender Information Value Date Recorded Sex Assigned at Not on file 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 Gender Identity Female 10/09/2022 9:08 AM CDT Sexual Orientation Choose not to disclose 2022 9:08 AM CDT documented as of this encounter Plan of Treatment Not on file documented as of this encounter Procedures Procedure Name Priority Date/Time Associated Diagnosis Comments XR CHEST PA LATERAL 2 VIEWS Routine 08/28/2013 8:08 AM CDT SERUM THYROID-STIMULATING HORMONE (TSH) Routine 08/28/2013 8:00 AM CDT SERUM MAGNESIUM Routine 08/28/2013 8:00 AM CDT SERUM COMPREHENSIVE METABOLIC PANEL Routine 08/28/2013 8:00 AM CDT BLOOD WBC CELL MORPHOLOGIC EXAM, AUTO Routine 08/28/2013 8:00 AM CDT BLOOD CELL COUNT (CBC) Routine 4 8:00 AM CDT SERUM TROPONIN I Routine 08/28/2013 3:00 AM CDT BLOOD B-TYPE NATRIURETIC PEPTIDE (BNP) Routine 08/28/2013 3:00 AM CDT ELECTROCARDIOGRAPHY (ECG) 08/28/2013 DISCHARGE LABORATORY CUMULATIVE REPORT Routine 08/28/2013 12:00 AM CDT documented in this encounter Results * XR Chest PA Lateral 2 View (08/28/2013 8:08 AM CDT) Anatomical Region Laterality Modality Body, Chest N/A Radiographic Patricia ging 08/28/2013 8:08 AM CDT Narrative 08/28/2013 2:23 PM CDT XR Chest 2 Views ?[id number] ??Acc#: ??[id number] DATE OF EXAM: ??Tutu ??2013 CLINICAL HISTORY: Chest pain. RESULT: Two views of the chest were evaluated. ??Comparison is made to a prior study dated 06/26/2013. Clear lungs. ??No pleural effusion or pneumothorax. ??Cardiomediastinal contours are within normal limits. ??The surgical clips within the right upper quadrant are consistent with a prior cholecystectomy. IMPRESSION: NO ACUTE CARDIOPULMONARY FINDING. Interpreting Physician: ??MARIA G POST M.D. ??Read on: ??Tutu ??2013 9:03A Transcribed by: ??CHAVEZR ??On: Aug ??2013 11:37A Approved Electronically by: ??MARIA G POST M.D. ??on: ??Tutu ??2013 2:23P Ordering DR: DR RASHID VELIZ Attending DR: DR RASHID VELIZ Procedure Note Provider, Rosalinda, - 07/15/2016 XR Chest 2 Views [id number] Acc#: [id number] DATE OF EXAM: Aug 28 2013 CLINICAL HISTORY: Chest pain. RESULT: Two views of the chest were evaluated. Comparison is made to a priorstudy dated 06/26/2013. Clear lungs. No pleural effusion or pneumothorax.Cardiomediastinal contours are within normal limits. The surgical clipswithin the right upper quadrant are consistent with a priorcholecystectomy. IMPRESSION: NO ACUTE CARDIOPULMONARY FINDING. Interpreting Physician: MARIA G POST M.D. Read on: Aug 28 20139:03A Transcribed by: LASHAE On: Aug 28 2013 11:37A Approved Electronically by: MARIA G POST M.D. on: Aug 28 20132:23P Ordering DR: DR RASHID VELIZ Attending DR: DR RASHID VELIZ us Historical Provider IMG XR PROCEDURES Final R esult * Serum thyroid-stimulating hormone (TSH) (08/28/2013 8:00 AM CDT) TSH 0.44 0.35 - 4.80 mcIUnits/ml HISTORICAL RESULTS Serum 08/28/2013 8:00 AM CDT Rashid Veliz MD LAB BLOOD ORDERABLES Roshni l Result HISTORICAL RESULTS * Serum magnesium (08/28/2013 8:00 AM CDT) Magnesium 1.8 1.5 - 2.2 mg/dl HISTORICAL RESULTS Serum 08/28/2013 8:00 AM CDT Rashid Veliz MD LAB BLOOD ORDERABLES Roshni l Result Performing Organization Address City/[facility] Co de Phone Number HISTORICAL RESULTS * Blood cell count (CBC) (08/28/2013 8:00 AM CDT) WBC 6.6 4.0 - 10.5 K/cumm HISTORICAL RESULTS RBC 4.33 4.20 - 5.40 M/cumm HISTORICAL RESULTS Hgb 13.5 12.0 - 16.0 g/dl HISTORICAL RESULTS Hct 39.5 37.0 - 47.0 % HISTORICAL RESULTS MCV 91.2 77.0 - 97.0 fl HISTORICAL RESULTS MCH 31.2 23.0 - 34.0 pg HISTORICAL RESULTS MCHC 34.2 32.0 - 36.0 g/dl HISTORICAL RESULTS Rdw 12.4 11.5 - 14.5 % HISTORICAL RESULTS Platelets 201 150 - 400 K/cumm HISTORICAL RESULTS MPV 10.3 7.4 - 10.4 fl HISTORICAL RESULTS Blood specimen (specimen) 08/28/2013 8:00 AM CDT Rashid Veliz MD LAB BLOOD ORDERABLES Roshni l Result Performing Organization Address [facility] de Phone Number HISTORICAL RESULTS * (ABNORMAL) Blood WBC cell morphologic exam, auto (08/28/2013 8:00 AM CDT) Pathologist [facility] Lymphocytes 25.2 25.0 - 33.0 % HISTORICAL RESULTS Monos 12.5 0.0 - 13.0 % HISTORICAL RESULTS Neutrophils 58.8 54.0 - 69.0 % HISTORICAL RESULTS Eosinophils 2.7 0.0 - 10.0 % HISTORICAL RESULTS Basophils 0.6 0.0 - 1.0 % HISTORICAL RESULTS Immature granulocytes 0.2 0.0 - 1.0 % HISTORICAL RESULTS Lymphocytes, abs 1.7 1.2 - 3.4 K/cumm HISTORICAL RESULTS Monocytes, absolute 0.8(L) 1.1 - 1.9 K/cumm HISTORICAL RESULTS Neutrophils, abs 3.9 1.4 - 6.5 K/cumm HISTORICAL RESULTS Eosinophils, abs 0.2 0.0 - 0.7 cells/cumm HISTORICAL RESULTS Basophils, abs 0.0 0.0 - 0.2 K/cumm HISTORICAL RESULTS Immature granulocyte, abs 0.0 0.0 - 0.0 K/cumm HISTORICAL RESULTS Blood specimen (specimen) 08/28/2013 8:00 AM CDT us Rashid Veliz MD LAB BLOOD ORDERABLES Roshni l Result HISTORICAL RESULTS * (ABNORMAL) Serum comprehensive metabolic panel (08/28/2013 8:00 AM CDT) BUN 9.0 6.0 - 23.0 mg/dl HISTORICAL RESULTS Sodium 140 134 - 143 mmol/L HISTORICAL RESULTS Potassium, sr 3.8 3.4 - 5.0 mmol/L HISTORICAL RESULTS Comment:HEMOLYSIS PRESENT PO TASSIUM MAY BE AFFECTED Chloride 105 99 - 108 mmol/L HISTORICAL RESULTS CO2 26 23 - 32 mmol/L HISTORICAL RESULTS Glucose 136 70 - 199 mg/dl HISTORICAL RESULTS Comment: [...] - 1.30 mg/dl HISTORICAL RESULTS BUN/creat ratio 9(L) 10 - 20 HIST ORICAL RESULTS A. gap 13 7 - 14 mmol/L HISTORICAL RESULTS Protein, sr 7.5 6.4 - 8.0 g/dl HISTORICAL RESULTS Alb 3.7 3.3 - 4.5 g/dl HISTORICAL RESULTS Alb/glob ratio 1.0(L) 1.1 - 1.8 HISTO RICAL RESULTS Calcium 9.0 8.6 - 9.8 mg/dl HISTORICAL RESULTS Bilirubin 0.5 0.0 - 1.1 mg/dl HISTORICAL RESULTS Alk phos 63 44 - 125 Units/L HISTORICAL RESULTS AST 23 5 - 40 Units/L HISTORICAL RESULTS Comment: HEMOLYSIS PRESENT AST(SGOT) MAY BE FALSELY ELEVATED ALT 26 15 - 70 Units/L HISTORICAL RESULTS Serum 08/28/2013 8:00 AM CDT Rashid Veliz MD LAB BLOOD ORDERABLES Roshni l Result Performing Organization Address City/[facility] Co de Phone Number HISTORICAL RESULTS * (ABNORMAL) Blood B-type natriuretic peptide (BNP) (08/28/2013 3:00 AM CDT) BNP 106(H) -<100 pg/ml HISTORIC AL RESULTS Blood specimen (specimen) 08/28/2013 3:00 AM CDT Narrative HISTORICAL RESULTS - 08/28/2013 4:33 AM CDT BNP REFERENCE RANGE <100 pg/ml Rashid Veliz MD LAB BLOOD ORDERABLES Roshni l Result Performing Organization Address [facility] de Phone Number HISTORICAL RESULTS * Serum troponin I (08/28/2013 3:00 AM CDT) Troponin I 0.08 0.00 - 0.10 ng/ml HISTORICAL RESULTS Serum 08/28/2013 3:00 AM CDT Narrative HISTORICAL RESULTS - 08/28/2013 3:52 AM CDT NEGATIVE: ??0.00 - 0.10 NG/ML INDETERMINATE: ??0.11 - 0.50 NG/ML POSITIVE: ??GREATER THAN 0.50 NG/ML Rashid Veliz MD LAB BLOOD ORDERABLES Roshni l Result Performing Organization Address [facility] de Phone Number HISTORICAL RESULTS * Discharge Laboratory Cumulative Report (08/28/2013 12:00 AM CDT) 08/28/2013 Narrative HISTORICAL RESULTS - 08/29/2013 2:38 AM CDT Patient No: [id number] ? [facility] Patient Name: ABENA HALL ? [facility] Age: 73 YRS ?: 1940 ?Sex:F ?[address] )[phone] ?? Adm Dt: 08/28/2013 ?[place], [place] ??[id number] Created: 08/29/2013 ??0238 ?? Pt. Type: E ? Discharge Dt: 08/28/2013 ? Pathologists: Rachel Bell MD Admit Dr. Chapis Santos: RASHID VELIZ MD ? BLOOD CELL COUNTS ?Collection Date: ?08/28/13 ?Collection Time: ?0800 ? Ref Range: ?? Units: [4.00-10.50] /CMM ? WBC X 10^3 ?6.64 [4.20-5.40] ??/CMM ? RBC X 10^6 ?4.33 [12.0-16.0] ??G/DL ? HGB ? 13.5 [37.0-47.0] ??% ?HCT ? 39.5 [77.0-97.0] ??FL ? MCV ? 91.2 [23.0-34.0] ??PG ? MCH ? 31.2 [32.0-36.0] ??% ?MCHC ?34.2 [11.5-14.5] ??% ?RDW ? 12.4 [150-400] ?? /CMM ? PLT X 10^3 ? 201 ?BLOOD CELL DIFFERENTIAL ?Collection Date: ?08/28/13 ?Collection Time: ?0800 ? Ref Range: ?? Units: [54.0-69.0] ??% ?NEUTROPHILS ? 58.8 [25.0-33.0] ??% ?LYMPHOCYTES ? 25.2 [0.0-13.0] ??% ?MONOCYTES ? 12.5 [0.0-10.0] ??% ?EOSINOPHILS ?2.7 [0.0-1.0] ?? % ?BASOPHILS ?0.6 ? /CMM ? A LYMPHOCYTE ? 1.7 [0.0-1.0] ?? % ?IMM GRAN % ? 0.2 [0.00-0.02] ??/CMM ? A IMM GRAN ?0.01 [1.1-1.9] ?? /CMM ? A MONOCYTE ? 0.8 L [1.4-6.5] ?? /CMM ? A NEUTROPHIL ? 3.9 [0.0-0.7] ?? /CMM ? A EOSINOPHIL ? 0.2 [0.0-0.2] ?? /CMM ? A BASOPHIL ? 0.0 Footnotes and Symbols: L = Low ?? CONTINUED ?Page: ?? 1 Patient No: [id number] ? [facility] Patient Name: ABENA HALL ? [facility] Age: 73 YRS ?: 1940 ?Sex:F ?[address] )[phone] ?? Adm Dt: 08/28/2013 ?[place] ??[id number] Created: 08/29/2013 ??0238 ?? Pt. Type: E ? Discharge Dt: 08/28/2013 ? Pathologists: Rachel Bell MD Admit Dr. Nation Dr: RASHID VELIZ MD ? GENERAL CHEMISTRY ?Collection Date: ?08/28/13 ?Collection Time: ?0800 ? Ref Range: ?? Units: [< ?100] ?? pg/ml ?BNP ?106 Hf [134-143] ?? MMOL/L ? SODIUM ? 140 [3.4-5.0] ?? MMOL/L ? POTASSIUM ?3.8 f ?08/28/13 0800 HEMOLYSIS PRESENT POTASSIUM MAY BE AFFECTED FOOTNOTE ADDED ON ?? 08/28/13 ?? AT 0847 BY 999 [99.0-108.0] MMOL/L ? CHLORIDE ? 105.0 [23.0-32.0] ??MMOL/L ? TOTAL CO2 ? 25.7 ?? [7-14] ?MMOL/L ? ANION GAP ? 13 ??[70-199] ?? MG/DL ?GLUCOSE ?136 f [6.4-8.0] ?? G/DL ? TOTAL PROTEIN ?7.5 [3.3-4.5] ?? G/DL ? ALBUMIN ?3.7 [1.1-1.8] ?A/G RATIO ?1.0 L [8.6-9.8] ?? MG/DL ?CALCIUM ?9.0 [0.0-1.1] ?? MG/DL ?BILI TOTAL ? 0.5 ??[44-125] ?? U/L ?ALK PHOS ?63 Footnotes and Symbols: L = Low, H [...] ranges implemented 02/01/2013. ?? CONTINUED ?Page: ?? 2 Patient No: [id number] ? [facility] Patient Name: ABENA HALL ? [facility] Age: 73 YRS ?: 1940 ?Sex:F ?[address] )[phone] ?? Adm Dt: 08/28/2013 ?[place] ??[id number] Created: 08/29/2013 ??0238 ?? Pt. Type: E ? Discharge Dt: 08/28/2013 ? Pathologists: Rachel Bell MD Admit Attend Dr: RASHID VELIZ MD ? GENERAL CHEMISTRY ?Collection Date: ?08/28/13 ?Collection Time: ?0800 ? Ref Range: ?? Units: ?? [5-40] ?U/L ?AST(SGOT) ? 23 f ?08/28/13 0800 HEMOLYSIS PRESENT AST(SGOT) MAY BE FALSELY ELEVATED FOOTNOTE ADDED ON ?? 08/28/13 ?? AT 0847 BY 999 ??[15-70] ?U/L ?ALT(SGPT) ? 26 f [6.0-23.0] ??MG/DL ?BUN ?9.0 ??[10-20] ? B/C RATIO ?9 L [0.60-1.30] ??MG/DL ?CREATININE ?0.96 [1.5-2.2] ?? MG/DL ?MAGNESIUM ?1.8 Footnotes and Symbols: L = Low, f = Footnote AST(SGOT) (08/05/13 -- Current) ALT(SGPT) (10/13/12 -- Current) ?? CONTINUED ?Page: ?? 3 Patient No: [id number] ? [facility] Patient Name: ABENA HALL ? [facility] Healthcare Age: 73 YRS ?: 1940 ?Sex:F ?[address] )[phone] ?? Adm Dt: 08/28/2013 ?[place], [place] ??[id number] Created: 08/29/2013 ??0238 ?? Pt. Type: E ? Discharge Dt: 08/28/2013 ? Pathologists: Rachel Bell MD Admit Dr. Nation Dr: RASHID VELIZ MD ? CARDIAC CHEMISTRY ?Collection Date: ?08/28/13 ?Collection Time: ?0800 ? Ref Range: ?? Units: [0.00-0.10] ??NG/ML ?TROPONIN I ?0.08 f ?THYROID FUNCTION TESTS ?Collection Date: ?08/28/13 ?Collection Time: ?0800 ? Ref Range: ?? Units: [0.35-4.80] ??uIU/ML ? TSH ? 0.44 Footnotes and Symbols: f = Footnote TROPONIN I (01/17/11 -- Current) NEGATIVE: ??0.00 - 0.10 NG/ML INDETERMINATE: ??0.11 - 0.50 NG/ML POSITIVE: ??GREATER THAN 0.50 NG/ML ?? END OF CHART ? Page: ?? 4 us Historical Provider LAB BLOOD ORDERABLES Roshni l Result HISTORICAL RESULTS * ELECTROCARDIOGRAPHY (ECG) (08/28/2013) Narrative 08/28/2013 Ordered by an unspecified provider. us Historical Provider ECG ORDERABLES Final Res ult documented in this encounter Visit Diagnoses Diagnosis Essential hypertension Unspecified essential hypertension Old myocardial infarction Postsurgical percutaneous transluminal coronary angioplasty status Personal history of tobacco use, presenting hazards to health documented in this encounter Care Teams Service Unit Operator Relationship Specialty Start Date End Date Ronald Castrejon MD PCP - General 03/31/13 05/28/16 documented as of this encounter
--- OUTSIDE RECORDS SUMMARY | 2024-04-11 06:41 | XMS_ITS | Encounter Summary ---
Author Organization [facility] Healthcare Address [address] [place] [address] Care Team Providers Care Pit Manager Name Role Phone Ronald Castrejon MD Primary Care Provider [phone] Encounter Details Date Type Department Care Team (Late st Contact Info) Description 09/14/2015 2:17 AM CDT - 09/14/2015 11:59 PM CDT Hospital Encounter [facility]CON[facility] Jaw pain; Pain in throat Social History Tobacco Use Types Packs/Day Years Used Date Smoking Tobacco: Former Cigarettes Q uit: 03/24/1969 Alcohol Use Standard Drinks/Week Comments No 0 (1 standard drink = 0.6 oz pur e alcohol) Comments Unknown Sex and Gender Information Value Date Recorded Sex Assigned at Not on file 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 Gender Identity Female 10/09/2022 9:08 AM CDT Sexual Orientation Choose not to disclose 2022 9:08 AM CDT documented as of this encounter Medications at Time of Discharge aspirin (ASPIR-81) 81 mg tablet take 1 tablet by oral route every day 0 0 06/06/2015 7 fluticasone (FLONASE) 50 mcg/actuation nasal spray inhale 2 spray by Intranasal route every day in each nostril 1 Bottle 11 09/08/2015 01/19/201 8 LORazepam (ATIVAN) 0.5 mg tablet take 1 Tablet by oral route 3 times every day as needed 90 4 03/23/2015 7 documented as of this encounter Plan of Treatment Not on file documented as of this encounter Visit Diagnoses Diagnosis Jaw pain Pain in throat Throat pain documented in this encounter Care Teams Pit Manager Relationship Specialty Start Date End Date Ronald Castrejon MD PCP - General 03/31/13 05/28/16 documented as of this encounter
--- OUTSIDE RECORDS SUMMARY | 2024-04-11 06:41 | XMS_ITS | Encounter Summary ---
Author Organization [facility] Healthcare Address [address] [place] [address] Care Team Providers Care Family Protection Specialist Name Role Phone Ronald Castrejon MD Primary Care Provider [phone] Encounter Details Date Type Department Care Team (Late st Contact Info) Description 12/28/2013 12:24 AM CDT - 12/28/2013 11:59 PM CDT Hospital Encounter [facility]INCON[facility] Chest pain Social History Tobacco Use Types Packs/Day Years Used Date Smoking Tobacco: Former Cigarettes Q uit: 03/24/1969 Alcohol Use Standard Drinks/Week Comments No 0 (1 standard drink = 0.6 oz pur e alcohol) Comments Unknown Sex and Gender Information Value Date Recorded Sex Assigned at Not on file 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
--- OUTSIDE RECORDS SUMMARY | 2024-04-11 06:41 | XMS_ITS | Encounter Summary ---
Author Organization [facility] Healthcare Address [address] [place] [address] Care Team Providers Care Home Health Care Physician Name Role Phone Ronald Castrejon MD Primary Care Provider [phone] Encounter Details Date Type Department Care Team (Late st Contact Info) Description 01/11/2016 7:37 AM CDT - 01/12/2016 5:00 PM CDT Hospital Encounter [facility] Reynaldo Harvey, DO [address] [place] [address] Paroxysmal atrial fibrillation (CMS/HCC); Essential (primary) hypertension; Atherosclerotic heart disease of pala coronary artery without angina pectoris; Hyperlipidemia; long-term current use of antithrombotics/antip latelets; long-term current use of aspirin; Obesity; Bradycardia; Body mass index (BMI) of 30.0-30.9 in adult; Adverse effect of beta-adrenoreceptor antagonist; Hospital as place of occurrence of external cause; Other specified events, undetermined intent, initial encounter Social History Tobacco Use Types Packs/Day Years Used Date Smoking Tobacco: Former Cigarettes Q uit: 03/24/1969 Alcohol Use Standard Drinks/Week Comments No 0 (1 standard drink = 0.6 oz pur e alcohol) Comments Unknown Sex and Gender Information Value Date Recorded Sex Assigned at Not on file 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 Gender Identity Female 10/09/2022 9:08 AM CDT Sexual Orientation Choose not to disclose 2022 9:08 AM CDT documented as of this encounter Last Filed Vital Signs Vital Sign Reading Time Taken Comments Blood Pressure 147/72 01/12/2016 3:21 PM CDT Pulse 50 01/12/2016 3:21 PM CDT Temperature - - Respiratory Rate - - Oxygen Saturation - - Inhaled Oxygen Concentration - - Weight 74.1 kg (163 lb 5.8 oz) 01/11/2016 9:41 A M CDT Height 156.2 cm (5' 1.5 ) 01/11/2016 9:41 AM CDT Body Mass Index 30.37 01/11/2016 9:41 AM CDT documented in this encounter Discharge Summaries * Provider, MD Rosalinda - 01/12/2016 12:00 AM CDT DISCHARGE SUMMARY Patient: ABENA HALL Account: [id number] Room No: 911-02 : 1940 Patient Type: Attend.: Reynaldo Flannery D.O. Admit Date: 01/11/2016 Dict.: Dmitri Mcallister Disch. Date: 01/12/2016 DISCHARGE DIAGNOSES Includes paroxysmal atrial fibrillation and bradycardia. HOSPITAL COURSE The patient is a 75-year-old female who was admitted on 01/11/2016 as a direct admit for sotalol loading. The patient has a known history of coronary artery disease, hypertension, hyperlipidemia, and paroxysmal atrial fibrillation. Prior to admission the patient had been seen by Dr. Flannery in the office and had been noted to have several episodes of atrial fibrillation that were symptomatic in nature with palpitations and throat pain that she was admitted for sotalol loading. On arrival to the hospital, the patient was noted to be bradycardic in the 50s. After receiving her first dose of sotalol, the patient's heart rate did drop into the 30s and thus it was elected to stop any further doses of sotalol. Options have been discussed with the patient, pacemaker versus ablation and the patient has opted to proceed with ablation at this time. This will be arranged on an outpatient basis and the patient is currently now stable for discharge home. PHYSICAL EXAM Findings today - General: Patient is alert and oriented x3. She is laying in bed in no acute distress. Vital Signs: Stable. Temp 98.4, blood pressure 147/72, heart rate 50, respiratory rate 19, and O2 sats 98% on room air. Lungs: Clear to air bilaterally. No wheezing or rhonchi. Cardiovascular: S1, S2. Bradycardiac. No murmurs, rubs, or gallops. GI: Abdomen is round and nontender. Bowel sounds are positive. Extremities: Without edema. Distal pulses positive. There are no new laboratory findings today. DISCHARGE MEDICATIONS Will include: 1. Aspirin 81 mg daily. 2. Apixaban 5 mg b.i.d. 3. Patient will stop her home Plavix at this time. DISCHARGE INSTRUCTIONS Have been provided to the patient and understanding was verbalized. The office will call the patient to arrange for workup prior to ablation and the date and time of the ablation. Thank you for allowing us to participate in the care of this patient. Electronically Authenticated by: CECI Jolley On 01/22/2016 03:28 PM CDT Electronically Authenticated by: Reynaldo Flannery DO On 01/24/2016 01:49 PM CDT Reynaldo Flannery D.O. Dictated by: Dmitri Mcallister/madi TD: 01/13/2016 14:19 documented in this encounter Medications at Time of Discharge cholecalciferol (VITAMIN D-3) 2,000 unit tabletIndication s:Prevention of Vitamin D Deficiency take 1 tablet by oral route every day 90 3 12/06/2015 aspirin (ASPIR-81) 81 mg tablet take 1 tablet by oral route every day 0 0 06/06/2015 7 fluticasone (FLONASE) 50 mcg/actuation nasal spray inhale 2 spray by Intranasal route every day in each nostril 1 Bottle 11 09/08/2015 8 LORazepam (ATIVAN) 0.5 mg tablet take 1 Tablet by oral route 3 times every day as needed 90 4 03/23/2015 7 documented as of this encounter H&P Notes * Provider, MD Rosalinda - 01/11/2016 12:00 AM CDT HISTORY AND PHYSICAL Patient: ABENA HALL Account: [id number] Room No: 911-02 : 1940 Patient Type: Attend.: Reynaldo Flannery D.O. Admit Date: 01/11/2016 Dict.: Dmitri Mcallister Disch. Date: 01/12/2016 ELECTROPHYSIOLOGY HISTORY AND PHYSICAL REASON FOR ADMISSION Sotalol loading. [facility] Patient is a 75-year-old female with a known history of coronary artery disease, hypertension, hyperlipidemia, and paroxysmal atrial fibrillation. Patient was seen in the office yesterday by Dr. Flannery and was noted to have 24 episodes of atrial fibrillation over the last several months. Patient had reported associated palpitations and throat pain with the episodes. She denies any chest pain, nausea, vomiting, syncope, near syncope, diaphoresis. Patient currently is asymptomatic and is in normal sinus rhythm. Patient, after her visit yesterday, was recommended to come into the hospital for sotalol loading. PAST MEDICAL HISTORY Significant for coronary artery disease, hypertension, hyperlipidemia, paroxysmal atrial fibrillation. PAST SURGICAL HISTORY Includes a cholecystectomy. SOCIAL HISTORY Patient lives alone. She denies any tobacco, alcohol or illicit drug use. FAMILY HISTORY Noncontributory. ALLERGIES INCLUDE PENICILLIN, MORPHINE AND CODEINE. HOME MEDICATIONS 1. Multivitamin 1 tab daily. 2. Ativan 0.5 mg 1 tab t.i.d. p.r.n. 3. Aspirin 81 mg daily. 4. Plavix 75 mg daily. REVIEW OF SYSTEMS After a 10 point review of systems, all pertinent positives and negatives are located in [facility], all others unremarkable. PHYSICAL EXAM FINDINGS General: Patient is alert, oriented x3. Lying in bed in no acute distress. Vital Signs: Temp 98.1, blood pressure 157/69, heart rate 55, respiratory rate 18, O2 sats 100% on room air. HEENT: Head is normocephalic. Pupils: PERRLA. Oral mucosa moist and intact. Neck: No JVD noted. No bruits auscultated. No thyroid enlargement. Trachea midline, intact. Respiratory: Lung sounds are clear to air bilaterally. No wheezing or rhonchi. Cardiovascular: S1, S2. Bradycardic. No murmurs, no rubs, no gallops. GI: Abdomen is round, nontender. Bowel sounds positive. Extremities: Without edema. Distal pulses positive. LABORATORY DATA Currently pending. ASSESSMENT AND PLAN 1. Paroxysmal atrial fibrillation with multiple episodes over the last few months per her implantable loop recorder. Patient has been admitted for sotalol loading of 80 mg p.o. b.i.d. Her EKG has been reviewed by Dr. Flannery and 1st dose will be initiated. We will also begin the patient on Eliquis 5 mg b.i.d. Will need EKG daily with telemetry monitoring. 2. History of coronary artery disease, currently stable. We will stop her Plavix. Continue aspirin. 3. Hypertension, currently controlled. 4. Hyperlipidemia. 5. Obesity. Thank you for allowing us to participate in the care of this patient. Electronically Authenticated by: CECI Jolley On 01/12/2016 03:22 PM CDT Electronically Authenticated by: Reynaldo Flannery DO On 01/24/2016 01:49 PM CDT Reynaldo Flannery D.O. Dictated by: Dmitri Mcallister/madi TD: 01/11/2016 12:20 documented in this encounter Plan of Treatment Not on file documented as of this encounter Procedures Procedure Name Priority Date/Time Associated Diagnosis Comments DISCHARGE LABORATORY CUMULATIVE REPORT 01/12/2016 PLASMA MAGNESIUM Routine 01/11/2016 10:2 2 AM CDT PLASMA BASIC METABOLIC PANEL Routine 01/11/2016 10:22 AM CDT ELECTROCARDIOGRAPHY (ECG) 01/11/2016 STAPHYLOCOCCUS SCREEN Routine 01/11/2016 12:00 AM CDT documented in this encounter Results * DISCHARGE LABORATORY CUMULATIVE REPORT (01/12/2016) Narrative 01/12/2016 Ordered by an unspecified provider. us Historical Provider LAB BLOOD ORDERABLES Rosh[place] l Result * (ABNORMAL) Plasma basic metabolic panel (01/11/2016 10:22 AM CDT) BUN 12 8 - 24 mg/dl CDR HISTORICAL RESULTS Glucose 119 70 - 199 mg/dl CDR HISTORICAL RESULTS Sodium 137 135 - 145 mmol/L CDR HISTORICAL RESULTS K, pl 4.2 3.5 - 5.1 mmol/L CDR HISTORICAL RESULTS Chloride 103 100 - 114 mmol/L CDR HISTORICAL RESULTS CO2 22 22 - 32 mmol/L CDR HISTORICAL RESULTS Creatinine 0.66 0.60 - 1.30 mg/dl CDR HISTORICAL RESULTS Calcium 9.4 8.4 - 10.5 mg/dl CDR HISTORICAL RESULTS A. gap 16(H) 8 - 16 mmol/L CDR HISTORICAL RESULTS eGFR 87 90 - 200 ml/min/1.7 3 m2 CDR HISTORICAL RESULTS Comment: If this individual is -[place], multiply result by 1.21 Repeated results of less than 60 is indicative of chronic kidney disease. MDRD formula has not been validated on individuals greater than 70 years old. Plasma 01/11/2016 10:2 2 AM CDT Jennie Quintana NP LAB BLOOD ORDERABL ES Final Result CDR HISTORICAL RESULTS * Plasma magnesium (01/11/2016 10:22 AM CDT) Magnesium 2.0 1.8 - 2.6 mg/dl CDR HISTORICAL RESULTS Plasma 01/11/2016 10:2 2 AM CDT Jennie Kathy Mariano COMBAT ENGINEER LAB BLOOD ORDERABL ES Final Result Performing Organization Address City/[facility] Co de Phone Number CDR HISTORICAL RESULTS * Staphylococcus Screen (01/11/2016 12:00 AM CDT) 01/11/2016 Narrative CDR HISTORICAL RESULTS - 01/12/2016 6:17 PM CDT [facility] ?Patient Name: ?ABENA HALL ?Med. Rec#: ?? [id number] ?Pt. Acct.#: ??[id number] ?Birthdate: ?? 1940 ?Age / Sex: ?? 75Y / F ?Location: ?DISCH (91-) ?Admit Date: ??01/11/2016 ?Discharge Date: ? 01/12/2016 ?Doctor: ?Reynaldo Flannery D.O. ?Patient Type: ?[facility] Inpatient Culture, Staph Screen for MRSA ? Collected: 01/11/2016 13:44 Specimen: Swab ?? Specimen Source: Nose, external nares Status: Final ??Last Update: 01/12/2016 15:34 Culture Result ?? Culture NEGATIVE for Methicillin Resistant Staphylococcus ?? aureus us Historical Provider LAB MICROBIOLOGY - GENERA L ORDERABLES Final Result Performing Organization Address [facility] Co de Phone Number CDR HISTORICAL RESULTS * ELECTROCARDIOGRAPHY (ECG) (01/11/2016) Narrative 01/11/2016 Ordered by an unspecified provider. 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
--- OUTSIDE RECORDS SUMMARY | 2024-04-11 06:41 | XMS_ITS | Encounter Summary ---
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 - 02/10/2014 11:59 PM MOTION PICTURE SET UP WORKER Hospital Encounter [facility] CLINCON[facility] Ronald Castrejon MD [address] [place], [place] [id number] Mixed hyperlipidemia; Pure hypercholesterolemia Social History Tobacco Use Types Packs/Day Years Used Date Smoking Tobacco: Former Cigarettes Q uit: 03/24/1969 Alcohol Use Standard Drinks/Week Comments No 0 (1 standard drink = 0.6 oz pur e alcohol) Comments Unknown Sex and Gender Information Value Date Recorded Sex Assigned at Not on file Legal Sex Female 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
--- OUTSIDE RECORDS SUMMARY | 2024-04-11 06:41 | XMS_ITS | Encounter Summary ---
Author Organization [facility] Healthcare Address [address] [place] [address] Care Team Providers Care Refractory Specialist Name Role Phone Ryan Castrejon MD Primary Care Provider [phone] Encounter Details Date Type Department Care Team (Latest Contact Info) Description 12/28/2013 12:11 PM CDT - 12/30/2013 12:26 PM CDT [place] [address] [facility] [address] [place] [address] Coronary atherosclerosis of [place] coronary artery; Other and unspecified hyperlipidemia; Other and unspecified angina pectoris; Postsurgical percutaneous transluminal coronary angioplasty status; Essential hypertension; Esophageal reflux; Anxiety state Social History Tobacco Use Types Packs/Day Years Used Date Smoking Tobacco: Former Cigarettes Q uit: 03/24/1969 Alcohol Use Standard Drinks/Week Comments No 0 (1 standard drink = 0.6 oz pur e alcohol) Comments Unknown Sex and Gender Information Value Date Recorded Sex Assigned at Not on file 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 Gender Identity Female 10/09/2022 9:08 AM CDT Sexual Orientation Choose not to disclose 2022 9:08 AM CDT documented as of this encounter Last Filed Vital Signs Vital Sign Reading Time Taken Comments Blood Pressure 111/53 12/30/2013 8:07 AM CDT Pulse 54 12/30/2013 8:07 AM CDT Temperature - - Respiratory Rate - - Oxygen Saturation - - Inhaled Oxygen Concentration - - Weight 79.3 kg (174 lb 13.2 oz) 014 12:25 PM CDT Height 154.9 cm (5' 0.98 ) 12/28/2013 1 2:25 PM CDT Body Mass Index 33.05 12/28/2013 12:25 PM CDT documented in this encounter Discharge Summaries * Provider, MD Rosalinda - 12/30/2013 12:00 AM CDT DISCHARGE SUMMARY - [facility] Patient: ABENA GIRON Account: [id number] Room No: 2605-01 : 1940 Patient Type: IP Attend.: Rei Yu D.O. Admit Date: 12/28/2013 Dict.: Gabe Jamison M.D. Disch. Date: 12/30/2013 PRIMARY CARE PHYSICIAN: Dr Ryan Castrejon DIAGNOSES 1. Chest pain with coronary artery disease, possible spasm. 2. Hypertension. 3. Anxiety. 4. Gastroesophageal reflux disease. HISTORY OF PRESENT ILLNESS Ms. Giron is a 73-year-old hypertensive white female, status post drug eluting stent to the circumflex artery for a subtotal occlusion in June of 2013, who presented to the emergency room with chest pain. She was getting ready for bed on the evening before admission when she developed a pressure sensation on the right side of her chest with associated shortness of breath, with no associated shortness of breath, nausea or diaphoresis. Lasted 3-5 minutes and subsided. When it happened again, she became anxious and contacted the ambulance and came to the emergency room for evaluation. The pain slowly resolved and she had some back discomfort x2. The complete history and physical is enumerated in her admitting history and physical. On admission, chest x-ray showed no active disease. EKG is sinus rhythm, no ischemic changes. Hemoglobin 13.4, hematocrit 39, platelets were 225,000, 56 segs, 30 lymphs. Troponins 0.09. Sodium 137, potassium 3.9, chloride 103, total CO2 of 27, glucose of 115. BUN 11, creatinine 0.76. LFTs are normal. HOSPITAL COURSE Problem #1. Chest pain with a history of coronary disease. The serial troponins showed slight elevation with 0.13, then 0.11 and 0.12. The patient was seen in consultation by cardiology. With slight elevation in her troponin with her symptomatology, a cardiac catheterization was performed. Findings at catheterization, revealed a patent circumflex stent. There was a small lesion in the ostium of the right coronary artery that had shown evidence of spasm during her last catheterization. Flow wire loop was adequate flow and did not appear to need any intervention. With the spasm she had before with her symptomatology, she was placed on a nitrate, Imdur 30 mg daily to take with her Diovan. She had not been able to tolerate several of the medications. Problem #2. Hypertension. Pressure was high at times. She did have some Diovan from home that was not generic she was able to take which she did and I gave her a prescription for Imdur 30 mg daily. Problem #3. Anxiety. She continues to be quite anxious at times while here. She will continue her clonazepam. Problem #4. Gastroesophageal reflux disease, continue on the proton pump inhibitor. PROCEDURES DURING THIS HOSPITALIZATION Carotid Doppler which showed minimal disease less than 40%. The cardiac catheterization showed a patent stent to the circumflex and a myocardial perfusion scan was performed the day after the catheterization to assess whether there was any decreased flow in the inferior area in the distribution of the right coronary artery where there was a small lesion on cath. The myocardial scan was normal. CONSULTANTS Dr. Holland of cardiology. CONDITION ON DISCHARGE Improved. She was up and about with no chest pain, feeling better, normal diet. Her complete list of discharge medications are enumerated in her medication reconciliation discharge order form. She will take the Diovan along with the Imdur 30 mg daily. This entire process took about 35 minutes to complete. She will follow up with primary care physician within a couple of weeks and [facility] in 3-4 weeks. Gabe Jamison M.D. CANDICE/[place]ville TD: 01/02/2014 16:51 Authenticated and Edited by Gabe Jamison MD On 01/11/14 6:31:03 AM documented in this encounter H&P Notes * Provider, MD Rosalinda - 12/28/2013 12:00 AM CDT HISTORY AND PHYSICAL Patient: ABENA GIRON Account: [id number] Room No: 2605-01 : 1940 Patient Type: SDS Attend.: Rei Yu D.O. Admit Date: 12/28/2013 Dict.: Gabe Jamison M.D. Disch. Date: CHIEF COMPLAINT: Chest pain. HISTORY OF PRESENT ILLNESS: The patient is a 73-year-old hypertensive white female status post drug-eluting stent to the circumflex artery for a subtotal occlusion in June of 2013, who presented to the emergency room with chest pain. She said she was preparing for bed when she started getting a pressure sensation in the right side of her chest with no associated shortness of breath, nausea or diaphoresis. The pain lasted 3-5 minutes, slowly subsided, but when it started to come again, she became anxious, concerned and contacted the ambulance who brought her to the emergency room for evaluation. She also had a lot of abdominal and GI reflux-type symptoms. She was given a GI cocktail. Those symptoms resolved. Then her chest pain slowly resolved. She had some back discomfort which she says is a separate issue which resolved also. She has had trouble with medications in the past with various allergies and had recently discontinued her Diovan because her trade day medication was no longer available. LISTED MEDICATIONS on admission include her: 1. Diovan h.s. 160 a.m. 2. Aspirin 81 mg daily. 3. Plavix 75 daily. 4. Protonix 40 q 12. 5. Vitamin D3. 6. Carvedilol 1.5625 q 12. 7. Tranxene 3.75. 8. Estradiol cream two times a week. PAST MEDICAL HISTORY remarkable for: 1. Hypertension which she has had for about 14 years, had been well controlled on Hyzaar until the generic became available. 2. History of drug-eluting stent in the circumflex artery on 06/28/13. At that time, she had about a 30% right coronary artery lesion, others being fine. 3. Recurrent history of anxiety. 4. Gastroesophageal reflux disease. 5. Hyperlipidemia. 6. Status post cholecystectomy in the distant past. SOCIAL HISTORY: Works in a [employer], [employer]. Does not smoke. No ETOH. FAMILY HISTORY: Mother lived to age 93. Father age 87. Neither had coronary disease. She has one sister with diabetes and had coronary disease. ALLERGIES: PENICILLIN, MORPHINE, CODEINE, although she says she has had problem with several different medications, mainly side effects to BETA BLOCKERS, KENJI INHIBITORS AND CALCIUM CHANNEL BLOCKERS. REVIEW OF SYSTEMS: Constitutional: She said her weight is steady. Appetite good. Eyes: No double vision or scatoma. Mouth: No pharyngitis or laryngitis. Pulmonary: No shortness of breath, wheezing or cough. CV: As per present illness. No pedal edema. Gastrointestinal: Has reflux. No dysphagia. No melena or hematochezia. Genitourinary: No dysuria. No hematuria. Musculoskeletal: No particular joint discomfort. Integument: No skin breakdown or rashes. Neuro/psych: No seizure. No syncope. PHYSICAL EXAMINATION: On arrival to the emergency room her initial blood pressure was 200/90, pulse 76. Now blood pressure is 150/77. Neck: No adenopathy or thyromegaly. There is a faint left carotid bruit. CV: No murmurs, gallops, rubs or clicks. No chest wall tenderness. Abdomen is soft and nontender now. She said her abdomen was tender yesterday. Extremities: Without edema. Distal pulses are 2+. She has scattered small bruises and had a little subcutaneous nodule in her left calf area that feels totally benign. Neurologically: She is alert. She is oriented. Cranial nerves are intact. No focal neurological deficits. Chest x-ray: No active disease. Electrocardiogram: Sinus rhythm, no ischemic changes. LABORATORY: Hemoglobin 13.4. Hematocrit 39. Platelets 225. 56 segs and 30 lymphs. Initial troponin was 0.09. Sodium 137. Potassium 3.9. Chloride 103. Total CO2 27. Glucose 115. BUN 11. Creatinine 0.76. Liver function tests are normal. ASSESSMENT: 1. Chest pain. Suspicious for coronary disease, although she said it feels a little different than her previous chest pain. We will get serial troponins. If they are negative, she may need stress echocardiogram. Also, check a D-dimer to make sure there is no problem there. 2. Hypertension. Hopefully she will be able to take some other medication to help keep that controlled. 3. Anxiety. Continue the Tranxene. 4. Hyperlipidemia. Continue statin. 5. Gastroesophageal reflux disease. Symptomatic last evening. Continue the b.i.d. proton pump inhibitor. 6. Faint carotid bruit. Get a carotid Doppler. If the above testing is normal, hopefully will be able to discharge her in a timely fashion. Unfortunately, she is going to be very difficult to treat since she is intolerant to so many different medications, but we should be able to discharge her in a timely fashion assuming her troponins remain normal. Gabe Jamison M.D. /wv TD: 12/28/2013 08:32 Authenticated by Gabe Jamison MD On 12/28/2013 09:16:14 PM documented in this encounter Consult Notes * Provider, MD Rosalinda - 12/28/2013 12:00 AM CDT CONSULTATION REPORT Patient: ABENA GIRON Account: [id number] Room No: 2605-01 : 1940 Patient Type: IP Attend.: Rei Yu D.O. Admit Date: 12/28/2013 Consult: Silas Holland M.D. F.A.C.C. Disch. Date: CARDIOLOGY CONSULTATION DATE OF CONSULTATION: 12/28/2013 REASON FOR CONSULTATION: Chest pain with elevated troponin -- rule out myocardial infarction. HISTORY OF PRESENT ILLNESS: The patient is a pleasant 73-year-old female seen by me in June 2013 with suspicious sounding chest discomfort. Her troponin level went up to 2 at that time. She underwent a heart catheterization and I gave her a drug-eluting Xience stent to the mid circumflex. The result was quite good. She came back in September 2013 with high blood pressures. Troponin levels were also slightly high, but we thought it was due to the high blood pressures. She claims to be taking the aspirin and Plavix on a regular basis. She has really not had any angina like in June until recently. Last night she came in with neck pressure. This is not the same as what she had in September 2013, but quite similar to what she had in June 2013. Her troponins were slightly elevated at 0.13 on a second set. EKG has not been remarkable. She feels an off and on right-sided chest discomfort like a pressure. There is no tenderness there. Smoking - none. Alcohol - none. MEDICAL HISTORY: 1) Coronary artery disease, status post percutaneous coronary intervention as described, 2) hypertension, 3) anxiety/panic disorder, 4) dyslipidemia - patient could not tolerate statins, 5) gastroesophageal reflux disease. PHYSICAL EXAMINATION: Blood pressure 154/77, pulse of 59 and regular. The patient was afebrile. In general, she is a moderately overweight female who is sitting in a chair next to the bed. There is a daughter in the room. She has a little bit of pain on the right side of the chest. There is no chest wall tenderness there. LUNGS: Good and equal airway exchange bilaterally. They are clear to auscultation bilaterally. HEART: Regular without any murmurs, gallops, or rubs. EXTREMITIES: No pedal edema. No focal weakness. EKG - sinus rhythm at 63 beats per minute with a leftward axis. No acute changes noted. ASSESSMENT AND PLAN: This is a 73-year-old female with a drug-eluting stent to the mid circumflex about six months ago. The pain is similar to that particular episode and there is slight troponin elevation. The troponin elevation could be due to ongoing ischemia from a new lesion. It could also be due to hypertension because her blood pressure was again over 200 when she came in this time. To make sure we do not miss anything, we will have to do a cardiac catheterization tomorrow morning. If there is no in- stent restenosis or progression of disease, she will be treated with high blood pressure medicine and also with antispasm agents. The question is whether she could have a pheochromocytoma causing her to have elevated blood pressures with palpitations. I will discuss with primary care to see if perhaps a CT of the abdomen is in order. The findings and plan were discussed with Dr. Jamison on the phone. Silas Holland M.D. Bryn LYNCH/thor TD: 12/28/2013 13:47 CC: Sisi Valera M.D. Authenticated and Edited by Silas Holland MD On 12/28/13 2:33:40 PM documented in this encounter Plan of Treatment Not on file documented as of this encounter Procedures Procedure Name Priority Date/Time Associated Diagnosis Comments DISCHARGE LABORATORY CUMULATIVE REPORT Routine 12/30/2013 12:00 AM CDT STRESS ECHO EXERCISE W NO DOPPLER/CF WO CONTRAST Routine 12/29/2013 3:02 PM CDT VLWU CAROTID DUPLEX SCAN LIMTED STUDY OR UNILATERAL Routine 12/29/2013 2:28 PM CDT NM MPI SPECT (REST AND/OR STRESS) MULTIPLE STUDIES Routine 12/29/2013 1:46 PM CDT LEFT CORONARY ANGIOGRAPHY Routine 2013 9:01 AM CDT SERUM TROPONIN I Routine 12/28/2013 11:4 7 PM CDT SERUM TROPONIN I Routine 12/28/2013 11:3 0 AM CDT SERUM LIPID PANEL Routine 12/28/2013 8:0 0 AM CDT SERUM TROPONIN I Routine 12/28/2013 3:00 AM CDT BLOOD D-DIMER Routine 12/28/2013 3:00 AM CDT XR CHEST PA LATERAL 2 VIEWS Routine 12/28/2013 1:22 AM CDT SERUM COMPREHENSIVE METABOLIC PANEL Routine 12/28/2013 1:14 AM CDT BLOOD WBC CELL MORPHOLOGIC EXAM, AUTO Routine 12/28/2013 1:14 AM CDT BLOOD CELL COUNT (CBC) Routine 4 1:14 AM CDT ELECTROCARDIOGRAPHY (ECG) 12/28/2013 MICROBIOLOGY SUMMARY Routine 12/28/2013 12:00 AM CDT SERUM TROPONIN I Routine 12/27/2013 8:14 PM CDT documented in this encounter Results * Discharge Laboratory Cumulative Report (12/30/2013 12:00 AM CDT) 12/30/2013 Narrative HISTORICAL RESULTS - 12/31/2013 12:37 AM CDT Patient No: [id number] ? [facility] Patient Name: ABENA GIRON ? [facility] Healthcare Age: 73 YRS ?: 1940 ?Sex:F ?[address] )[phone] ?? Adm Dt: 12/28/2013 ?[place], [place] ??[address] Created: 12/31/2013 ??0037 ?? Pt. Type: I ? Discharge Dt: 12/30/2013 ? Pathologists: Rachel Bell MD Admit DrDarvin Attend Dr: REI YU DO ? BLOOD CELL COUNTS ?Collection Date: ?12/28/13 ?Collection Time: ?0114 ? Ref Range: ?? Units: [4.00-10.50] /CMM ? WBC X 10^3 ?8.15 [4.20-5.40] ??/CMM ? RBC X 10^6 ?4.26 [12.0-16.0] ??G/DL ? HGB ? 13.4 [37.0-47.0] ??% ?HCT ? 39.2 [77.0-97.0] ??FL ? MCV ? 92.0 [23.0-34.0] ??PG ? MCH ? 31.5 [32.0-36.0] ??% ?MCHC ?34.2 [11.5-14.5] ??% ?RDW ? 13.2 [150-400] ?? /CMM ? PLT X 10^3 ? 225 ?BLOOD CELL DIFFERENTIAL ?Collection Date: ?12/28/13 ?Collection Time: ?0114 ? Ref Range: ?? Units: [54.0-69.0] ??% ?NEUTROPHILS ? 56.5 [25.0-33.0] ??% ?LYMPHOCYTES ? 30.8 [0.0-13.0] ??% ?MONOCYTES ?9.2 [0.0-10.0] ??% ?EOSINOPHILS ?2.2 [0.0-1.0] ?? % ?BASOPHILS ?0.9 ? /CMM ? A LYMPHOCYTE ? 2.5 [0.0-1.0] ?? % ?IMM GRAN % ? 0.4 [0.00-0.02] ??/CMM ? A IMM GRAN ?0.03 H [1.1-1.9] ?? /CMM ? A MONOCYTE ? 0.8 L [1.4-6.5] ?? /CMM ? A NEUTROPHIL ? 4.6 [0.0-0.7] ?? /CMM ? A EOSINOPHIL ? 0.2 [0.0-0.2] ?? /CMM ? A BASOPHIL ? 0.1 Footnotes and Symbols: L = Low, H = High ?? CONTINUED ?Page: ?? 1 Patient No: [id number] ? [facility] Patient Name: ABENA GIRON ? [facility] Healthcare Age: 73 YRS ?: 1940 ?Sex:F ?[address] )[phone] ?? Adm Dt: 12/28/2013 ?[place], [place] ??[address] Created: 12/31/2013 ??0037 ?? Pt. Type: I ? Discharge Dt: 12/30/2013 ? Pathologists: Rachel Bell MD Admit Attend Dr: REI YU DO ? GENERAL CHEMISTRY ?Collection Date: ?12/28/13 ?Collection Time: ?0114 ? Ref Range: ?? Units: [134-143] ?? MMOL/L ? SODIUM ? 137 [3.4-5.0] ?? MMOL/L ? POTASSIUM ?3.9 [99.0-108.0] MMOL/L ? CHLORIDE ? 103.0 [23.0-32.0] ??MMOL/L ? TOTAL CO2 ? 27.4 ?? [7-14] ?MMOL/L ? ANION GAP ? 11 ??[70-199] ?? MG/DL ?GLUCOSE ?115 f [6.4-8.0] ?? G/DL ? TOTAL PROTEIN ?7.4 [3.3-4.5] ?? G/DL ? ALBUMIN ?4.0 [1.1-1.8] ?A/G RATIO ?1.2 [8.6-9.8] ?? MG/DL ?CALCIUM ?9.0 [0.0-1.1] ?? MG/DL ?BILI TOTAL ? 0.3 ??[44-125] ?? U/L ?ALK PHOS ?79 ?? [5-40] ?U/L ?AST(SGOT) ? 17 f ??[15-70] ?U/L ?ALT(SGPT) ? 25 f [6.0-23.0] ??MG/DL ?BUN ? 11.0 ??[10-20] ? B/C RATIO ? 14 [0.60-1.30] ??MG/DL ?CREATININE ?0.76 Footnotes and Symbols: f = Footnote GLUCOSE (02/23/13 -- Current) [...] ?? CONTINUED ?Page: ?? 2 Patient No: [id number] ? [facility] Patient Name: ABENA GIRON ? [facility] Healthcare Age: 73 YRS ?: 1940 ?Sex:F ?[address] )[phone] ?? Adm Dt: 12/28/2013 ?[place] ??[id number] Created: 12/31/2013 ??0037 ?? Pt. Type: I ? Discharge Dt: 12/30/2013 ? Pathologists: Rachel Bell MD Admit Dr. Nation Dr: REI YU DO ? CARDIAC CHEMISTRY ?Collection Date: ?12/29/13 ? 12/28/13 ?Collection Time: ?0447 ? 1630 ? Ref Range: ?? Units: [0.00-0.10] ??NG/ML ?TROPONIN I ?0.12 Hf ?0.11 Hf ?Collection Date: ?12/28/13 ? 12/28/13 ?Collection Time: ?0800 ? 0114 ? Ref Range: ?? Units: [0.00-0.10] ??NG/ML ?TROPONIN I ?0.13 Hf ?0.09 f ?LIPIDS ?Collection Date: ?12/28/13 ?Collection Time: ?0800 ? Ref Range: ?? Units: ? MG/DL ?CHOLESTEROL ?209 f ? MG/DL ?HDL CHOLESTEROL ? 41 f Footnotes and Symbols: H = High, f = Footnote TROPONIN I (01/17/11 -- Current) NEGATIVE: ??0.00 - 0.10 NG/ML INDETERMINATE: ??0.11 - 0.50 NG/ML POSITIVE: ??GREATER THAN 0.50 NG/ML CHOLESTEROL (04/05/10 -- Current) DESIRABLE = LESS THAN 200 MG/DL BORDERLINE HIGH = 200-239 MG/DL HIGH= GREATER THAN 239 MG/DL HDL CHOLESTEROL (04/05/10 -- Current) LOW HDL CHOLESTEROL = Less than 40 mg/dL NORMAL HDL CHOLESTEROL = 40-59 mg/dL HIGH HDL CHOLESTEROL = Greater than 59 mg/dL ?? CONTINUED ?Page: ?? 3 Patient No: [id number] ? [facility] Patient Name: ABENA GIRON ? [facility] Age: 73 YRS ?: 1940 ?Sex:F ?[address] )[phone] ?? Adm Dt: 12/28/2013 ?[place], [place] ??[address] Created: 12/31/2013 ??0037 ?? Pt. Type: I ? Discharge Dt: 12/30/2013 ? Pathologists: Rachel Bell MD Admit Dr. Nation Dr: REI YU DO ?LIPIDS ?Collection Date: ?12/28/13 ?Collection Time: ?0800 ? Ref Range: ?? Units: ? MG/DL ?TRIGLYCERIDES ?106 f ?12/28/13 0800 Current guidelines recommend that lipid screen be ??performed on fasting blood samples for heart risk stratification. FOOTNOTE ADDED ON ?? 12/28/13 ?? AT 0923 BY 999 ? MG/DL ?NON HDL CALC ? 168 f ?LDL CHOL CALC ?147 f Footnotes and Symbols: f = Footnote TRIGLYCERIDES (07/08/12 -- Current) NORMAL = LESS THAN 150 MG/DL BORDERLINE HIGH = 150-199 MG/DL HIGH = 200-499 MG/DL VERY HIGH = GREATER THAN OR EQUAL TO 500 MG/DL NON HDL CALC (06/29/12 -- Current) OPTIMAL LESS THAN 130 LOW RISK 130 -159 MODERATE RISK 160 - 189 HIGH RISK GREATER THAN OR EQUAL TO 190 LDL CHOL CALC (07/09/12 -- Current) LESS THAN 100 MG/DL OPTIMAL 100 - 129 MG/DL NEAR OPTIMAL / ABOVE OPTIMAL 130 - 159 MG/DL BORDERLINE HIGH 160 - 189 MG/DL HIGH GREATER THAN OR = 190 MG/DL VERY HIGH LDL VALUES ARE NOT VALID WHEN THE TOTAL TRIGLYCERIDE IS GREATER THAN 300 MG/DL. ?? CONTINUED ?Page: ?? 4 Patient No: [id number] ? [facility] Patient Name: ABENA GIRON ? [facility] Age: 73 YRS ?: 1940 ?Sex:F ?[address] )[phone] ?? Adm Dt: 12/28/2013 ?[place] ??[id number] Created: 12/31/2013 ??0037 ?? Pt. Type: I ? Discharge Dt: 12/30/2013 ? Pathologists: Rachel Bell MD Admit Dr. Chapis Santos: REI YU DO ?COAGULATION ? Units: ?? D-DIMER ? Low: ??[0.00-0.50] ? Ref Range: ?UG/ML ? 12/28/13 0800 ?0.25 f ? MICRO - MISCELLANEOUS STAPHYLOCOCCUS SCREEN ? Collected: 12/28/13 0520 ? Received: 12/28/13 0523 Source: [facility] ? Started: 12/28/13 0524 ? FINAL REPORT ?12/29/1327 ? LIGHT GROWTH OF METHICILLIN RESISTANT STAPH AUREUS ? FINAL REPORT CALLED TO: SIRI/GT WITH READBACK Footnotes and Symbols: f = Footnote D-DIMER (04/05/10 -- Current) Units of Measure = ug/ml FEU The D-Dimer result should not be used as the sole indicator to rule in or exclude a diagnosis of Pulmonary Embolism or Deep Vein Thrombosis. ?? END OF CHART ? Page: ?? 5 us Historical Provider LAB BLOOD ORDERABLES Roshni schneider Result HISTORICAL RESULTS * Echo Exercise Stress No Doppler/CF WO Contrast (12/29/2013 3:02 PM CDT) Anatomical Region Laterality Modality Ultrasound 12/29/2013 3:02 PM CDT Narrative 01/03/2014 7:24 AM CDT STRESS TEST [facility] ??Acc#: ??[id number] DATE OF EXAM: ??Oct ??2013 CLINICAL HISTORY: RESULT: INDICATION: ??Abena Giron is a 73 year old female with angina. ??She had recent cardiac catheterization showing possible ostial RCA lesion. ??We are trying to see if there ischemia in the RCA territory. Risk factors include: ??age over 55, dyslipidemia, obesity, hypertension and also previous smoking history. Resting ECG shows a sinus rhythm at 70 beats per minute with a normal axis. ??Inferolateral ST and T wave changes noted. PROCEDURE: ??The patient underwent intravenous Regadenoson followed by intravenous Cardiolite. ??Patient had some jaw pain which was quite significant during the procedure. ??Blood pressure was 102/57 at rest and it went down to 62/41 in recovery. ??The IV fluids were given wide open for the hypotension. ??We eventually had to give 125 mg of IV aminophylline and the chest pain and jaw pain finally went away. ??During that time there was additional [address] segment depression inferolaterally which is somewhat suspicious for ischemia. IMPRESSION: NUCLEAR IMAGES ARE PENDING. Interpreting Physician: ??DR SILAS HOLLAND M.D. ??Read on: ??Dec ??2013 4:12P Transcribed by: ??[email or web address] ??On: Dec ??2013 ??5:57P Approved Electronically by: ??MICHELA Laird, DR ROSEN ??on: ??Jan 03 2014 7:24A Ordering DR: DR SILAS HOLLAND Attending DR: REI YU Procedure Note Provider, MD Rosalinda - 07/15/2016 STRESS TEST [facility] Acc#: [id number] DATE OF EXAM: Dec 29 2013 CLINICAL HISTORY: RESULT: INDICATION: Abena Giron is a 73 year old female with angina. She hadrecent cardiac catheterization showing possible ostial RCA lesion. We aretrying to see if there ischemia in the RCA territory. Risk factors include: age over 55, dyslipidemia, obesity, hypertensionand also previous smoking history. Resting ECG shows a sinus rhythm at 70beats per minute with a normal axis. Inferolateral ST and T wave changesnoted. PROCEDURE: The patient underwent intravenous Regadenoson followed byintravenous Cardiolite. Patient had some jaw pain which was quitesignificant during the procedure. Blood pressure was 102/57 at rest andit went down to 62/41 in recovery. The IV fluids were given wide open forthe hypotension. We eventually had to give 125 mg of IV aminophylline andthe chest pain and jaw pain finally went away. During that time there wasadditional [address] segment depression inferolaterally which is somewhatsuspicious for ischemia. IMPRESSION: NUCLEAR IMAGES ARE PENDING. Interpreting Physician: DR SILAS HOLLAND M.D. Read on: Dec 29 20134:12P Transcribed by: babita On: Dec 29 2013 5:57P Approved Electronically by: MICHELA Laird, DR ROSEN on: Jan 03 20147:24A Ordering DR: DR SILAS HOLLAND Attending DR: REI YU us Historical Provider CV ECHO PROCEDURES Final Result * US Carotid Duplex Scan Limted study or unilateral (12/29/2013 2:28 PM CDT) Anatomical Region Laterality Modality Vascular Ultrasound 12/29/2013 2:28 PM CDT Narrative 12/31/2013 7:45 AM CDT VL/US Carotids ??Acc#: ??[id number] DATE OF EXAM: ??Dec ??2013 CLINICAL HISTORY: Left carotid bruit. RESULT: RIGHT: ??Mild plaquing is present within the common carotid artery and bulb. ??Velocities and velocity ratios are normal. ??Vertebral flow is antegrade. LEFT: ??Mild plaquing is present within the carotid bulb and proximal internal carotid artery. ??Velocities and velocity ratios are normal. Vertebral flow is antegrade. IMPRESSION: 1. 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 Interpreting Physician: ??DR JAVAN MCKEON M.D. ??Read on: ??Dec ??2013 2:33P Transcribed by: ??babita ??On: Dec?2013 ??4:41P Approved Electronically by: ??MIKE Laird, DR EDOUARD ??on: ??Dec 31 2013 7:45A Ordering DR: DR GABE JAMISON Attending DR: REI YU Procedure Note Provider, Rosalinda, - 07/15/2016 VL/US Carotids Acc#: [id number] DATE OF EXAM: Dec 29 2013 CLINICAL HISTORY: Left carotid bruit. RESULT: RIGHT: Mild plaquing is present within the common carotid artery andbulb. Velocities and velocity ratios are normal. Vertebral flow isantegrade. LEFT: Mild plaquing is present within the carotid bulb and proximalinternal carotid artery. Velocities and velocity ratios are normal.Vertebral flow is antegrade. IMPRESSION: 1. 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 Interpreting Physician: DR JAVAN MCKEON M.D. Read on: Dec 29 20132:33P Transcribed by: babita On: Dec 29 2013 4:41P Approved Electronically by: MIKE Laird, DR EDOUARD on: Dec 31 20137:45A Ordering DR: DR GABE JAMISON Attending DR: REI YU us Historical Provider CV VASCULAR PROCEDURES Fi nal Result * NM MPI Spect (Rest And Stress) Multiple Studies (12/29/2013 1:46 PM CDT) Anatomical Region Laterality Modality Body N/A Nuclear Medicine 12/29/2013 1:46 PM CDT Narrative 12/31/2013 7:45 AM CDT NM Myocard Perf Rest/Stress ??Acc#: ??[id number] DATE OF EXAM: ??Dec ??2013 CLINICAL HISTORY: 73 year old female who presents with angina. ??The patient states a prior history of myocardial infarction and PTCA. RESULT: Intravenous Lexiscan was administered under the supervision of Cardiology to achieve stress. ??10.4 mCi Tc Myoview was injected at rest followed by 31.3 mCi injected at peak stress. There is a normal distribution of radiopharmaceutical activity throughout the left ventricular myocardium on both rest and stress images. ??Gated images demonstrate normal left ventricular wall thickening. ??The left ventricular ejection fraction is normal at 67%. IMPRESSION: 1. NORMAL REST AND STRESS MYOCARDIAL PERFUSION. 2. NORMAL LEFT VENTRICULAR WALL MOTION. 3. NORMAL LEFT VENTRICULAR EJECTION FRACTION. Interpreting Physician: ??DR JAVAN MCKEON M.D. ??Read on: ??Dec ??2013 2:20P Transcribed by: ??babita ??On: Dec?2013 ??4:39P Approved Electronically by: ??MIEK Laird, DR EDOUARD ??on: ??Dec 31 2013 7:45A Ordering DR: DR SILAS HOLLAND Attending DR: REI YU Procedure Note Provider, Rosalinda, - 07/15/2016 NM Myocard Perf Rest/Stress Acc#: [id number] DATE OF EXAM: Dec 29 2013 CLINICAL HISTORY: 73 year old female who presents with angina. The patient states a priorhistory of myocardial infarction and PTCA. RESULT: Intravenous Lexiscan was administered under the supervision of Cardiologyto achieve stress. 10.4 mCi Tc Myoview was injected at rest followed by 31.3 mCi injected at peak stress. There is a normal distribution ofradiopharmaceutical activity throughout the left ventricular myocardium onboth rest and stress images. Gated images demonstrate normal leftventricular wall thickening. The left ventricular ejection fraction isnormal at 67%. IMPRESSION: 1. NORMAL REST AND STRESS MYOCARDIAL PERFUSION. 2. NORMAL LEFT VENTRICULAR WALL MOTION. 3. NORMAL LEFT VENTRICULAR EJECTION FRACTION. Interpreting Physician: DR JAVAN MCKEON M.D. Read on: Dec 29 20132:20P Transcribed by: babita On: Dec 29 2013 4:39P Approved Electronically by: MIKE Laird, DR EDOUARD on: Dec 31 20137:45A Ordering DR: DR SILAS HOLLAND Attending DR: REI YU us Historical Provider MD [place] NM PROCEDURES Final R esult * CORONARY ANGIOGRAPHY [id number] (12/29/2013 9:01 AM CDT) Anatomical Region Laterality Modality X-Ray Angiograph y 12/29/2013 9:01 AM CDT Narrative 01/03/2014 7:24 AM CDT HEART CATH ??Acc#: ??[id number] DATE OF EXAM: ??Dec ??2013 CLINICAL HISTORY: Chest pain. RESULT: CARDIAC CATHETERIZATION REPORT INDICATION: Abena Giron is a 73 year old female with stent implantation to the mid to distal circumflex about 6 months ago. ??She came back in with suspicious sounding chest discomfort. ??She has been ruled out for an HI. ??She wants another heart catheter. ??She understands the risks to include the following, but not limited to the following: ??radiation exposure, , cerebrovascular accident, myocardial infarction, infection, vascular problems, dye reaction, dysrhythmias, pain, bleeding, renal failure, need for urgent CABG or stent placement. PROCEDURE: The patient was brought down to the Cardiac Ramp Lead where her right groin was prepped and draped in the usual fashion. ??After infiltration with 1% Lidocaine, a 5 [place]ian femoral artery sheath was placed over a J-tipped guidewire without any difficulties. ??Next, a 5 [place] JL4 catheter was placed into the left main and multiple shots taken of the left main system. ??The right coronary artery was injected with a 4 [place]ian PATRICIA catheter. ??We knew from several months ago that it was difficult to cannulate and there was some pressure dampening. ??We again noticed quite significant pressure dampening. ??I tried to inject intracoronary nitroglycerin twice. ??It was not clear whether the blood vessel actually got much larger. ??A 5 [place]ian JR4 catheter was then used for bilateral renal artery injection. ??Renal arteries did not show any significant disease. ??A 5 [place]ian angled pigtail catheter was used at the very end for hemodynamics and pullback and also left ventriculography. ??Left ventriculography was performed in the 30 SEGOVIA position. The patient tolerated the procedure well and left the manager cardiac cath without any chest pain. Good hemostasis was obtained in the right groin after the AngioSeal device was deployed followed by manual pressure for 5 minutes. ??Total dye load of 120ml of Optiray 320. FINDINGS: 1. Hemodynamics as follows: 1. Hemodynamics as follows: Left ventricular systolic pressure: 125mmHg Left ventricular end diastolic pressure: ?? 14mmHg Aortic systolic pressure: 125mmHg Aortic diastolic pressure: ?? 50mmHg There is no gradient across the aortic valve upon pullback. 2. Injection of the right coronary artery was quite difficult with what appeared to be significant pressure dampening. ??Visually, there appears to be 40% ostial to proximal RCA stenosis. 3. Injection of left main reveals very long diffuse 30% proximal to mid LAD stenosis. ??There is a large branching 1st diagonal. 4. The circumflex also comes from the left main and has diffuse 25% proximal circumflex stenosis. ??There is a small 1st OM and a large 2nd OM and a large 3rd OM. ??There is a widely patent stent in the mid to distal circumflex as per diagram. 5. Left ventriculography reveals normal to hyperdynamic global LV function. ??No mitral regurgitation. IMPRESSION: 1. MODERATE CORONARY ARTERY DISEASE IN THIS RIGHT DOMINANT SYSTEM WITH WIDELY PATENT STENT NOTED IN THE MID TO DISTAL CIRCUMFLEX. ??THERE IS AT LEAST 40% STENOSIS DIFFUSELY IN THE OSTIAL TO PROXIMAL RCA WITH SIGNIFICANT PRESSURE DAMPENING. ??THIS MAY BE A SIGNIFICANT LESION. 2. NO MITRAL REGURGITATION. 3. NORMAL TO HYPERDYNAMIC GLOBAL LV FUNCTION WITH NO REGIONAL WALL MOTION ABNORMALITIES. THE PLAN IS TO GIVE HER SOME ANTISPASM AGENT SUCH IMDUR 60MG PO QID. WE WILL GET A NUCLEAR STUDY TO SEE IF THERE IS ANY FLOW ABNORMALITY IN THE INFERIOR WALL. ??IF SO, DR. ROJAS MAY BE ASKED TO INTERVENE TO THE OSTIUM OF THE RCA. ??I WILL DISCUSS THE FINDINGS WITH DR. JAMISON AND ALSO DR. ROJAS TOMORROW WHEN HE COMES IN. Interpreting Physician: ??DR SILAS HOLLAND M.D. ??Read on: ??Dec ??2013 2:27P Transcribed by: ??mrr ??On: Dec?2013 ??2:27P Approved Electronically by: ??MICHELA Laird, DR ROSEN ??on: ??Jan 03 2014 7:24A Ordering DR: REI YU Attending : REI YU Procedure Note Provider, MD Rosalinda - 07/15/2016 HEART CATH Acc#: [id number] DATE OF EXAM: Dec 29 2013 CLINICAL HISTORY: Chest pain. RESULT: CARDIAC CATHETERIZATION REPORT INDICATION: Abena Giron is a 73 year old female with stent implantationto the mid to distal circumflex about 6 months ago. She came back in withsuspicious sounding chest discomfort. She has been ruled out for an HI.She wants another heart catheter. She understands the risks to include the following, but not limited to the following: radiationexposure, , cerebrovascular accident, myocardial infarction,infection, vascular problems, dye reaction, dysrhythmias, pain, bleeding,renal failure, need for urgent CABG or stent placement. PROCEDURE: The patient was brought down to the Cardiac Ramp Lead where her rightgroin was prepped and draped in the usual fashion. After infiltrationwith 1% Lidocaine, a 5 Burundian femoral artery sheath was placed over aJ-tipped guidewire without any difficulties. Next, a 5 [place]undian BP4segknkcu was placed into the left main and multiple shots taken of theleft main system. The right coronary artery was injected with a 4 FrenchIMA catheter. We knew from several months ago that it was difficult tocannulate and there was some pressure dampening. We again noticed quitesignificant pressure dampening. I tried to inject intracoronarynitroglycerin twice. It was not clear whether the blood vessel actuallygot much larger. A 5 Burundian JR4 catheter was then used for bilateralrenal artery injection. Renal arteries did not show any significantdisease. A 5 [place]undian angled pigtail catheter was used at the very end forhemodynamics and pullback and also left ventriculography. Leftventriculography was performed in the 30 SEGOVIA position. The patient tolerated the procedurewell and left the manager cardiac cath without any chest pain. Good hemostasis wasobtained in the right groin after the AngioSeal device was deployedfollowed by manual pressure for 5 minutes. Total dye load of 120ml ofOptiray 320. FINDINGS: 1. Hemodynamics as follows: 1. Hemodynamics as follows: Left ventricular systolic pressure: 125mmHg Left ventricular end diastolic pressure: 14mmHg Aortic systolic pressure: 125mmHg Aortic diastolic pressure: 50mmHg There is no gradient across the aorticvalve upon pullback. 2. Injection of the right coronary artery was quite difficult with whatappeared to be significant pressure dampening. Visually, there appears dario 40% ostial to proximal RCA stenosis. 3. Injection of left main reveals very long diffuse 30% proximal to midLAD stenosis. There is a large branching 1st diagonal. 4. The circumflex also comes from the left main and has diffuse 25%proximal circumflex stenosis. There is a small 1st OM and a large 2nd OMand a large 3rd OM. There is a widely patent stent in the mid to distalcircumflex as per diagram. 5. Left ventriculography reveals normal to hyperdynamic global LVfunction. No mitral regurgitation. IMPRESSION: 1. MODERATE CORONARY ARTERY DISEASE IN THIS RIGHT DOMINANT SYSTEM WITHWIDELY PATENT STENT NOTED IN THE MID TO DISTAL CIRCUMFLEX. THERE IS ATLEAST 40% STENOSIS DIFFUSELY IN THE OSTIAL TO PROXIMAL RCA WITHSIGNIFICANT PRESSURE DAMPENING. THIS MAY BE A SIGNIFICANT LESION. 2. NO MITRAL REGURGITATION. 3. NORMAL TO HYPERDYNAMIC GLOBAL LV FUNCTION WITH NO REGIONAL WALL MOTIONABNORMALITIES. THE PLAN IS TO GIVE HER SOME ANTISPASM AGENT SUCH [id number] PO QID. WE WILL GET A NUCLEAR STUDY TO SEE IF THERE IS ANY FLOWABNORMALITY IN THE INFERIOR WALL. IF SO, DR. ROJAS MAY BE ASKED TOINTERVENE TO THE OSTIUM OF THE RCA. I WILL DISCUSS THE FINDINGS WITH AND ALSO DR. ROJAS TOMORROW WHEN HE COMES IN. Interpreting Physician: DR SILAS HOLLAND M.D. Read on: Dec 30 20132:27P Transcribed by: lissy On: Dec 30 2013 2:27P Approved Electronically by: MICHELA Laird, DR ROSEN on: Jan 03 20147:24A Ordering DR: REI YU Attending DR: REI YU Historical Provider MD CV CARDIAC CATH PROCEDURE S Final Result * (ABNORMAL) Serum troponin I (12/28/2013 11:47 PM CDT) Troponin I 0.12(H) 0.00 - 0.10 ng/ml HISTORICAL RESULTS Serum 12/28/2013 11:4 7 PM CDT Narrative HISTORICAL RESULTS - 12/29/2013 12:33 AM CDT NEGATIVE: ??0.00 - 0.10 NG/ML INDETERMINATE: ??0.11 - 0.50 NG/ML POSITIVE: ??GREATER THAN 0.50 NG/ML Gabe Jamison MD LAB BLOOD ORDERABLES Final Result HISTORICAL RESULTS * (ABNORMAL) Serum troponin I (12/28/2013 11:30 AM CDT) Troponin I 0.11(H) 0.00 - 0.10 ng/ml HISTORICAL RESULTS Serum 12/28/2013 11:3 0 AM CDT Narrative HISTORICAL RESULTS - 12/28/2013 12:19 PM CDT NEGATIVE: ??0.00 - 0.10 NG/ML INDETERMINATE: ??0.11 - 0.50 NG/ML POSITIVE: ??GREATER THAN 0.50 NG/ML Gabe Jamison MD LAB BLOOD ORDERABLES Final Result Performing Organization Address City/[facility] de Phone Number HISTORICAL RESULTS * Serum lipid panel (12/28/2013 8:00 AM CDT) Cholesterol 209 mg/dl HISTORIC AL RESULTS Comment: DESIRABLE = LESS THAN 200 MG/DL BORDERLINE HIGH = 200-239 MG/DL HIGH= GREATER THAN 239 MG/DL Triglycerides 106 mg/dl HISTOR ICAL RESULTS Comment: Current guidelines recommend that lipid screen be performed on fasting blood samples for heart risk stratification. NORMAL = LESS THAN 150 MG/DL BORDERLINE HIGH = 150-199 MG/DL HIGH = 200-499 MG/DL VERY HIGH = GREATER THAN OR EQUAL TO 500 MG/DL HDL 41 mg/dl HISTORICAL RESULTS Comment: LOW HDL CHOLESTEROL = Less than 40 mg/dL NORMAL HDL CHOLESTEROL = 40-59 mg/dL HIGH HDL CHOLESTEROL = Greater than 59 mg/dL Non-HDL cholesterol, calculated 168 mg/dl HISTORICAL RESULTS Comment: OPTIMAL LESS THAN 130 LOW RISK 130 -159 MODERATE RISK 160 - 189 HIGH RISK GREATER THAN OR EQUAL TO 190 LDL, calculated 147 HIST ORICAL RESULTS Comment: LESS THAN 100 MG/DL OPTIMAL 100 - 129 MG/DL NEAR OPTIMAL / ABOVE OPTIMAL 130 - 159 MG/DL BORDERLINE HIGH 160 - 189 MG/DL HIGH GREATER THAN OR = 190 MG/DL VERY HIGH LDL VALUES ARE NOT VALID WHEN THE TOTAL TRIGLYCERIDE IS GREATER THAN 300 MG/DL. Serum 12/28/2013 8:00 AM CDT Gabe Jamison MD LAB BLOOD ORDERABLES Final Result Performing Organization Address [facility] de Phone Number HISTORICAL RESULTS * (ABNORMAL) Serum troponin I (12/28/2013 3:00 AM CDT) Troponin I 0.13(H) 0.00 - 0.10 ng/ml HISTORICAL RESULTS Serum 12/28/2013 3:00 AM CDT Narrative HISTORICAL RESULTS - 12/28/2013 4:08 AM CDT NEGATIVE: ??0.00 - 0.10 NG/ML INDETERMINATE: ??0.11 - 0.50 NG/ML POSITIVE: ??GREATER THAN 0.50 NG/ML Gabe Jamison MD LAB BLOOD ORDERABLES Final Result HISTORICAL RESULTS * Blood D-dimer (12/28/2013 3:00 AM CDT) D-dimer 0.25 0.00 - 0.50 mcg/ml HISTORICAL RESULTS Blood specimen (specimen) 12/28/2013 3:00 AM CDT Narrative HISTORICAL RESULTS - 12/28/2013 3:39 AM CDT Units of Measure = ug/ml FEU The D-Dimer result should not be used as the sole indicator to rule in or exclude a diagnosis of Pulmonary Embolism or Deep Vein Thrombosis. Gabe Jamison MD LAB BLOOD ORDERABLES Final Result Performing Organization Address [facility] Co de Phone Number HISTORICAL RESULTS * XR Chest PA Lateral 2 View (12/28/2013 1:22 AM CDT) Anatomical Region Laterality Modality Body, Chest N/A Radiographic Patricia ging 12/28/2013 1:22 AM CDT Narrative 12/28/2013 4:00 PM CDT XR Chest 2 Views ?[id number] ??Acc#: ??[id number] DATE OF EXAM: ??Dec ??2013 CLINICAL HISTORY: Right-sided chest pain. ??History of prior myocardial infarction. RESULT: PA and lateral projections obtained, compared with portable AP study of 09/29/13 as well as the prior study of 08/28/13. ??Cardiac size and pulmonary vascularity are within the range of normal. ??Lungs are free of confluent infiltrates. ??Costophrenic angles are sharp. ??Opacity right cardiophrenic angle most commonly represents fat pad. ??This was present on the prior study of 09/29/13. ??Degenerative changes of the thoracic spine with spurring. ??Surgical clips in the upper abdomen, likely prior cholecystectomy. IMPRESSION: NO ACUTE PULMONARY DISEASE. Interpreting Physician: ??JERRY SLAUGHTER M.D. ??Read on: ??Dec ??2013 ??8:07A Transcribed by: ??mrr ??On: Dec ??2013 12:04P Approved Electronically by: ??JERRY SLAUGHTER M.D. ??on: ??Dec ??2013 ??4:00P Ordering DR: ??Eric Attending DR: DR RYAN CASTREJON Procedure Note Provider, Rosalinda, - 07/15/2016 XR Chest 2 Views [id number] Acc#: [id number] DATE OF EXAM: Dec 28 2013 CLINICAL HISTORY: Right-sided chest pain. History of prior myocardial infarction. RESULT: PA and lateral projections obtained, compared with portable AP study of09/29/13 as well as the prior study of 08/28/13. Cardiac size and pulmonaryvascularity are within the range of normal. Lungs are free of confluentinfiltrates. Costophrenic angles are sharp. Opacity right cardiophrenicangle most commonly represents fat pad. This was present on the priorstudy of 09/29/13. Degenerative changes of the thoracic spine withspurring. Surgical clips in the upper abdomen, likely priorcholecystectomy. IMPRESSION: NO ACUTE PULMONARY DISEASE. Interpreting Physician: JERRY SLAUGHTER M.D. Read on: Dec 28 2013 8:07A Transcribed by: lissy On: Dec 28 2013 12:04P Approved Electronically by: JERRY SLAUGHTER M.D. on: Dec 28 2013 4:00P Ordering DR: Eric Attending DR: DR RYAN CASTREJON us Historical Provider IMGerald XR PROCEDURES Final R esult * (ABNORMAL) Blood cell count (CBC) (12/28/2013 1:14 AM CDT) WBC 8.2 4.0 - 10.5 K/cumm HISTORICAL RESULTS RBC 4.26 4.20 - 5.40 M/cumm HISTORICAL RESULTS Hgb 13.4 12.0 - 16.0 g/dl HISTORICAL RESULTS Hct 39.2 37.0 - 47.0 % HISTORICAL RESULTS MCV 92.0 77.0 - 97.0 fl HISTORICAL RESULTS MCH 31.5 23.0 - 34.0 pg HISTORICAL RESULTS MCHC 34.2 32.0 - 36.0 g/dl HISTORICAL RESULTS Rdw 13.2 11.5 - 14.5 % HISTORICAL RESULTS Platelets 225 150 - 400 K/cumm HISTORICAL RESULTS MPV 10.7(H) 7.4 - 10.4 fl HISTORICAL RESULTS Blood specimen (specimen) 12/28/2013 1:14 AM CDT [facility] [place] Eric LAB BLOOD ORDERABLES Final R esult Performing Organization Address City/[facility] de Phone Number HISTORICAL RESULTS * (ABNORMAL) Blood WBC cell morphologic exam, auto (12/28/2013 1:14 AM CDT) Pathologist [facility] Lymphocytes 30.8 25.0 - 33.0 % HISTORICAL RESULTS Monos 9.2 0.0 - 13.0 % HISTORICAL RESULTS Neutrophils 56.5 54.0 - 69.0 % HISTORICAL RESULTS Eosinophils 2.2 0.0 - 10.0 % HISTORICAL RESULTS Basophils 0.9 0.0 - 1.0 % HISTORICAL RESULTS Immature granulocytes 0.4 0.0 - 1.0 % HISTORICAL RESULTS Lymphocytes, abs 2.5 1.2 - 3.4 K/cumm HISTORICAL RESULTS Monocytes, absolute 0.8(L) 1.1 - 1.9 K/cumm HISTORICAL RESULTS Neutrophils, abs 4.6 1.4 - 6.5 K/cumm HISTORICAL RESULTS Eosinophils, abs 0.2 0.0 - 0.7 cells/cumm HISTORICAL RESULTS Basophils, abs 0.1 0.0 - 0.2 K/cumm HISTORICAL RESULTS Immature granulocyte, abs 0.0(H) 0.0 - 0.0 K/cumm HISTORICAL RESULTS Blood specimen (specimen) 12/28/2013 1:14 AM CDT [facility] [place] Eric LAB BLOOD ORDERABLES Final R esult HISTORICAL RESULTS * Serum comprehensive metabolic panel (12/28/2013 1:14 AM CDT) Pathologist [facility] BUN 11.0 6.0 - 23.0 mg/dl HISTORICAL RESULTS Sodium 137 134 - 143 mmol/L HISTORICAL RESULTS Potassium, sr 3.9 3.4 - 5.0 mmol/L HISTORICAL RESULTS Chloride 103 99 - 108 mmol/L HISTORICAL RESULTS CO2 27 23 - 32 mmol/L HISTORICAL RESULTS Glucose 115 70 - 199 mg/dl HISTORICAL RESULTS Comment: [...] glucose. New reference ranges implemented 02/01/2013. Creatinine 0.76 0.60 - 1.30 mg/dl HISTORICAL RESULTS BUN/creat ratio 14 10 - 20 HIST ORICAL RESULTS A. gap 11 7 - 14 mmol/L HISTORICAL RESULTS Protein, sr 7.4 6.4 - 8.0 g/dl HISTORICAL RESULTS Alb 4.0 3.3 - 4.5 g/dl HISTORICAL RESULTS Alb/glob ratio 1.2 1.1 - 1.8 HISTO RICAL RESULTS Calcium 9.0 8.6 - 9.8 mg/dl HISTORICAL RESULTS Bilirubin 0.3 0.0 - 1.1 mg/dl HISTORICAL RESULTS Alk phos 79 44 - 125 Units/L HISTORICAL RESULTS AST 17 5 - 40 Units/L HISTORICAL RESULTS ALT 25 15 - 70 Units/L HISTORICAL RESULTS Serum 12/28/2013 1:14 AM CDT Emiliano Reyes LAB BLOOD ORDERABLES Final R esult HISTORICAL RESULTS * Microbiology Summary (12/28/2013 12:00 AM CDT) 12/28/2013 Narrative HISTORICAL RESULTS - 12/30/2013 12:49 AM CDT ? [facility] ?CLINICAL LABORATORIES ? MICROBIOLOGY REPORT PATIENT NAME: ??ABENA GIRON ? MED RECORD#: ??[id number] BIRTHDATE: ??1940 ?? AGE: ??73 YRS SEX: F ?PATIENT#: ? [id number] ADMITTING DR: ??REI YU DO ? ATTENDING DR: ??REI YU DO ?ACCESSION#: ?? [id number] CREATED: ??12/30/13 ?? 0037 ? ADMIT DATE: ?? 12/28/13 ? MICRO - MISCELLANEOUS STAPHYLOCOCCUS SCREEN ? Collected: 12/28/13519 ? Received: 12/28/13522 Source: [facility] ? Started: 12/28/13523 ?12/29/13 0527 ? LIGHT GROWTH OF METHICILLIN RESISTANT STAPH AUREUS ? FINAL REPORT CALLED TO: SIRI/GT WITH READBACK ?? END OF CHART Historical Provider LAB MICROBIOLOGY - GENERA L ORDERABLES Final Result Performing Organization Address [facility] de Phone Number HISTORICAL RESULTS * ELECTROCARDIOGRAPHY (ECG) (12/28/2013) Narrative 12/28/2013 Ordered by an unspecified provider. Historical Provider ECG ORDERABLES Final Res ult * Serum troponin I (12/27/2013 8:14 PM CDT) Troponin I 0.09 0.00 - 0.10 ng/ml HISTORICAL RESULTS Serum 12/27/2013 8:14 PM CDT Narrative HISTORICAL RESULTS - 12/27/2013 8:47 PM CDT NEGATIVE: ??0.00 - 0.10 NG/ML INDETERMINATE: ??0.11 - 0.50 NG/ML POSITIVE: ??GREATER THAN 0.50 NG/ML Emiliano Reyes LAB BLOOD ORDERABLES Final R esult Performing Organization Address [facility] de Phone Number HISTORICAL RESULTS documented in this encounter Visit Diagnoses Diagnosis Coronary atherosclerosis of [place] coronary artery Other and unspecified hyperlipidemia Other and unspecified angina pectoris Postsurgical percutaneous transluminal coronary angioplasty status Essential hypertension Unspecified essential hypertension Esophageal reflux Anxiety state Anxiety state, unspecified documented in this encounter Care Teams Refractory Specialist Relationship Specialty Start Date End Date Ryan Castrejon MD PCP - General 03/31/13 05/28/16 documented as of this encounter
--- OUTSIDE RECORDS SUMMARY | 2024-04-11 06:41 | XMS_ITS | Encounter Summary ---
Author Organization [facility] Healthcare Address [address] [place] [address] Care Team Providers Care Brickmason Name Role Phone Ronald Castrejon MD Primary Care Provider [phone] Encounter Details Date Type Department Care Team (Latest Contact Info) Description 01/25/2016 10:28 AM CDT - 01/25/2016 11:59 PM CDT Hospital Encounter CH Reynaldo Harvey, DO [address] [place] [address] Atherosclerotic heart disease of [place] coronary artery without angina pectoris; Urinary tract infection; Obesity; Paroxysmal atrial fibrillation (CMS/HCC) Social History Tobacco Use Types Packs/Day Years Used Date Smoking Tobacco: Former Cigarettes Q uit: 03/24/1969 Alcohol Use Standard Drinks/Week Comments No 0 (1 standard drink = 0.6 oz pur e alcohol) Comments Unknown Sex and Gender Information Value Date Recorded Sex Assigned at Not on file Legal Sex Female 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 Gender Identity Female 10/09/2022 9:08 AM [...] Name Priority Date/Time Associated Diagnosis Comments CT ABLATION Routine 01/25/2016 5:28 PM CDT PLASMA BASIC METABOLIC PANEL Routine 01/25/2016 10:36 AM CDT URINALYSIS Routine 01/25/2016 10:36 AM CDT BLOOD CELL COUNT (CBC) Routine 01/25/2016 10:36 AM CDT URINE MICROBIOLOGY Routine 01/25/2016 12 :00 AM CDT DISCHARGE LABORATORY CUMULATIVE REPORT 01/25/2016 documented in this encounter Results * CT Ablation (01/25/2016 5:28 PM CDT) Anatomical Region Laterality Modality N/A Computed Tomogra phy 01/25/2016 5:28 PM CDT Narrative 01/26/2016 12:39 PM CDT DATE OF EXAM: ??Nov ??3 2015 ??5:28PM Acc#: ??[id number] ??ECT 0126 - CT Heart Pre-Ablation ?? DIAGNOSIS: ??PAROXYSMAL ATRIAL FIBRILLATION CLINICAL HISTORY: ?? AFIB RESULT: EXAM: CT HEART PREABLATION WITH CONTRAST DATE: January 25, 2016 CLINICAL HISTORY: Paroxysmal atrial fibrillation TECHNIQUE: After the uneventful intravenous administration of 100 ml Optiray 350, computed tomographic images of the heart were obtained in the axial plane. Maximum intensity projection images and volume rendered images were performed. The images were then sent to an outside workstation where measurements of the pulmonary veins were made. Images with measurements of the pulmonary veins were returned and are available on PACS for review. No prior study is available for comparison. FINDINGS: ??There is minimal linear atelectasis in the visible portion of the right middle lobe. There is no evidence of noncalcified lung nodule or infiltrate. The pulmonary vasculature is normal. There is no pneumothorax or pleural effusion. The trachea and mainstem bronchi are patent. The heart size is normal. The left atrium is mildly enlarged, measuring 4.6 cm in AP diameter. There is no evidence of atrial or ventricular septal defect. There is no evidence of cardiac mass or thrombus. The origins of the coronary arteries appear normal. This exam was not protocoled for evaluation of the coronary arteries. Atherosclerotic calcifications are present in the nevarez of the aorta and coronary arteries. There is no mediastinal or axillary adenopathy. There is an electronic device in the anterior left chest wall. Diffuse idiopathic skeletal hyperostosis changes are present in the visible portion of the spine. There are two right and two left pulmonary veins. The ostium of the right superior pulmonary vein measures 23.1 x 27.4 mm. The first branch of the right superior pulmonary vein occurs 12.3 mm distal to the ostium. The ostium of the right inferior pulmonary vein measures 20.1 x 22.5 mm. The first branch of the right inferior pulmonary vein occurs 1.8 mm distal to the ostium. The ostium of the left superior pulmonary vein measures 14.7 x 21.9 mm. The first branch of the left superior pulmonary vein occurs 8.2 mm distal to the ostium. The left inferior pulmonary vein ostium measures 15.5 x 18.9 mm. The first branch of the left inferior pulmonary vein occurs 13.2 mm distal to the ostium. There is no evidence of anomalous pulmonary venous drainage. The esophagus courses medial to the ostia of the left superior and inferior pulmonary veins. IMPRESSION: ? 1. ??TWO RIGHT AND TWO LEFT PULMONARY VEINS WITH MEASUREMENTS GIVEN ABOVE. 2. ??MILD PROMINENCE OF THE LEFT ATRIUM. ? LEASING PROPERTY MANAGER: ??LB3 TRANSCRIBE DATE/TIME: ??Nov ??4 2015 10:40A RADIOLOGIST: ??MAGALY VAUGHN M.D. ??READ ON: ??Nov ??4 2015 ??9:38A ORDERING DR: REYNALDO FLANNERY M.D. THIS DOCUMENT HAS BEEN ELECTRONICALLY SIGNED BY: ??MAGALY VAUGHN M.D. ??ON: ??Nov ??4 2015 12:39P Attending: ??MARK, ??REYNALDO Requesting: ??MARK, ??REYNALDO Requesting Fax: ??[phone] Attending Fax: ??[phone] Attending ID: ??[id number] Requesting ID: ??[id number] Report To 1 ID: ?? Report To 1 Name: ??, ?? Report To 1 FAX: ??-- Report To 2 ID: ?? Report To 2 Name: ??, ?? Report To 2 FAX: ??-- NextGen Order #: ?? Procedure Note Provider, MD Rosalinda - 07/31/2016 DATE OF EXAM: Jan 25 2016 5:28PM Acc#: [id number] ECT 0126 - CT Heart Pre-Ablation DIAGNOSIS: PAROXYSMAL ATRIAL FIBRILLATION CLINICAL HISTORY: AFIB RESULT: EXAM: CT HEART PREABLATION WITH CONTRAST DATE: January 25, 2016 CLINICAL HISTORY: Paroxysmal atrial fibrillation TECHNIQUE: After the uneventful intravenous administration of 100 ml Optiray 350, computed tomographic images of the heart were obtained in the axial plane. Maximum intensity projection images and volume rendered images were performed. The images were then sent to an outside workstation where measurements of the pulmonary veins were made. Images with measurements of the pulmonary veins were returned and are available on PACS for review. No prior study is available for comparison. FINDINGS: There is minimal linear atelectasis in the visible portion of the right middle lobe. There is no evidence of noncalcified lung nodule or infiltrate. The pulmonary vasculature is normal. There is no pneumothorax or pleural effusion. The trachea and mainstem bronchi are patent. The heart size is normal. The left atrium is mildly enlarged, measuring 4.6 cm in AP diameter. There is no evidence of atrial or ventricular septal defect. There is no evidence of cardiac mass or thrombus. The origins of the coronary arteries appear normal. This exam was not protocoled for evaluation of the coronary arteries. Atherosclerotic calcifications are present in the nevarez of the aorta and coronary arteries. There is no mediastinal or axillary adenopathy. There is an electronic device in the anterior left chest wall. Diffuse idiopathic skeletal hyperostosis changes are present in the visible portion of the spine. There are two right and two left pulmonary veins. The ostium of the right superior pulmonary vein measures 23.1 x 27.4 mm. The first branch of the right superior pulmonary vein occurs 12.3 mm distal to the ostium. The ostium of the right inferior pulmonary vein measures 20.1 x 22.5 mm. The first branch of the right inferior pulmonary vein occurs 1.8 mm distal to the ostium. The ostium of the left superior pulmonary vein measures 14.7 x 21.9 mm. The first branch of the left superior pulmonary vein occurs 8.2 mm distal to the ostium. The left inferior pulmonary vein ostium measures 15.5 x 18.9 mm. The first branch of the left inferior pulmonary vein occurs 13.2 mm distal to the ostium. There is no evidence of anomalous pulmonary venous drainage. The esophagus courses medial to the ostia of the left superior and inferior pulmonary veins. IMPRESSION: 1. TWO RIGHT AND TWO LEFT PULMONARY VEINS WITH MEASUREMENTS GIVEN ABOVE. 2. MILD PROMINENCE OF THE LEFT ATRIUM. LEASING PROPERTY MANAGER: LB3 TRANSCRIBE DATE/TIME: Jan 26 2016 10:40A RADIOLOGIST: MAGALY VAUGHN M.D. READ ON: Jan 26 2016 9:38A ORDERING DR: REYNALDO FLANNERY M.D. THIS DOCUMENT HAS BEEN ELECTRONICALLY SIGNED BY: MAGALY VAUGHN M.D. ON: Jan 26 2016 12:39P Attending: REYNALDO FLANNERY Requesting: REYNALDO FLANNERY Requesting Attending Attending ID: [id number] Requesting ID: [id number] Report To 1 ID: Report To 1 Name: , Report To 1 FAX: -- Report To 2 ID: Report To 2 Name: , Report To 2 FAX: -- NextGen Order #: us Historical Provider MD ALTAMIRANO CT PROCEDURES Final R esult * (ABNORMAL) Urinalysis (01/25/2016 10:36 AM CDT) Color, ur Yellow CDR HISTOR ICAL RESULTS Clarity, ur Clear Clear CDR HIST ORICAL RESULTS pH, ur 5.0 5 - 7 CDR HISTOR ICAL RESULTS Specific gravity, ur 1.016 1.001 - 1.033 CDR HISTORICAL RESULTS Protein, ur Negative Negative CDR HIST ORICAL RESULTS Glucose, ur Negative Negative CDR HIST ORICAL RESULTS Ketones, ur Negative Negative CDR HIST ORICAL RESULTS Bilirubin, ur Negative Negative CDR HI STORICAL RESULTS U Blood Small(A) Negative CDR HISTOR ICAL RESULTS Urobilinogen, quant, ur Normal 0.2 - 1.0 mg/dl CDR HISTORICAL RESULTS Nitrites, ur Negative Negative CDR HIS TORICAL RESULTS Leukocyte esterase, ur Small(A) Negative CDR HISTORICAL RESULTS WBC, ur 0 - 5 0 - 5 /hpf CDR HISTO RICAL RESULTS RBC, ur 0 - 5 0 - 5 /hpf CDR HISTO RICAL RESULTS Epithelial cells, ur 0 - 2 /hpf CDR HISTORICAL RESULTS Mucus Present CDR HISTOR ICAL RESULTS Urine 01/25/2016 10:3 6 AM CDT Reynaldo Flannery DO LAB BLOOD ORDERABLES Fin al Result CDR HISTORICAL RESULTS * (ABNORMAL) Blood cell count (CBC) (01/25/2016 10:36 AM CDT) WBC 10.6(H) 3.8 - 9.8 K/cumm CDR HISTORICAL RESULTS RBC 4.63 4.20 - 5.20 M/cumm CDR HISTORICAL RESULTS Hgb 14.5 12.0 - 15.0 g/dl CDR HISTORICAL RESULTS Hct 43.9 37.0 - 47.0 % CDR HISTORICAL RESULTS MCV 94.8 82.0 - 96.0 fl CDR HISTORICAL RESULTS MCH 31.3 27.0 - 32.0 pg CDR HISTORICAL RESULTS MCHC 33.0 29.0 - 35.0 g/dl CDR HISTORICAL RESULTS Platelets 220 150 - 450 K/cumm CDR HISTORICAL RESULTS RDW 43.9 36.4 - 46.3 fl CDR HISTORICAL RESULTS Rdw 12.7 11.5 - 14.5 % CDR HISTORICAL RESULTS MPV 11.4 8.6 - 12.6 fl CDR HISTORICAL RESULTS Blood specimen (specimen) 01/25/2016 10:36 AM CDT Reynaldo Flannery DO LAB BLOOD ORDERABLES Fin al Result Performing Organization Address City/[facility] Co de Phone Number CDR HISTORICAL RESULTS * Plasma basic metabolic panel (01/25/2016 10:36 AM CDT) BUN 10 8 - 24 mg/dl CDR HISTORICAL RESULTS Glucose 104 70 - 199 mg/dl CDR HISTORICAL RESULTS Sodium 139 135 - 145 mmol/L CDR HISTORICAL RESULTS K, pl 4.2 3.5 - 5.1 mmol/L CDR HISTORICAL RESULTS Chloride 102 100 - 114 mmol/L CDR HISTORICAL RESULTS CO2 28 22 - 32 mmol/L CDR HISTORICAL RESULTS Creatinine 0.70 0.60 - 1.30 mg/dl CDR HISTORICAL RESULTS Calcium 9.4 8.4 - 10.5 mg/dl CDR HISTORICAL RESULTS A. gap 13 8 - 16 mmol/L CDR HISTORICAL RESULTS eGFR 82 90 - 200 ml/min/1.7 3 m2 CDR HISTORICAL RESULTS Comment: If this individual is -Fijian, multiply result by 1.21 Repeated results of less than 60 is indicative of chronic kidney disease. MDRD formula has not been validated on individuals greater than 70 years old. Plasma 01/25/2016 10:3 6 AM CDT Reynaldo Flannery DO LAB BLOOD ORDERABLES Fin al Result CDR HISTORICAL RESULTS * DISCHARGE LABORATORY CUMULATIVE REPORT (01/25/2016) Narrative 01/25/2016 Ordered by an unspecified provider. Historical Provider LAB BLOOD ORDERABLES Roshni l Result * Urine Microbiology (01/25/2016 12:00 AM CDT) 01/25/2016 Narrative CDR HISTORICAL RESULTS - 01/28/2016 4:49 PM CHIEF CATALYST OPERATOR [facility] ?Patient Name: ?ABENA GIRON ?Med. Rec#: ?? [id number] ?Pt. Acct.#: ??[id number] ?Birthdate: ?? 1940 ?Age / Sex: ?? 75Y / F ?Location: ?DISCH ([facility] ?Admit Date: ??01/25/2016 ?Discharge Date: ? 01/25/2016 ?Doctor: ?Reynaldo Flannery D.O. ?Patient Type: ?CH Ancillary - Insur Culture, Urine ? Collected: 01/25/2016 10:36 Specimen: Urine ?? Specimen Source: Clean Voided Specimen Status: Final ??Last Update: 01/28/2016 12:01 Organism ?? 10,000 - 50,000 cfu/ml of ?? Pseudomonas aeruginosa ?$$'s REPRESENT ?- ?IN-PATIENT COST ? - ?- ?Aztreonam ?$$$$ 8 ?S ?Cefepime ? $$ 4 ?S ?Gentamicin ?$ <=2 ??S ?Tobramycin ?$ <=2 ??S ?Amikacin ?$ <=8 ??S ?Imipenem ? $$$$ 8 ?R ?Meropenem ? $$$ 2 ?S ?Ciprofloxacin ? $ ?S ? <=0.5 ?Pip/Tazo ?$$$ 4/4 ??S Organism ?? Less than 10,000 cfu/ml of ?? multiple Gram positive organisms us Historical Provider LAB MICROBIOLOGY - GENERA L ORDERABLES Final Result CDR HISTORICAL RESULTS documented in this encounter Visit Diagnoses Diagnosis Atherosclerotic heart disease of [place] coronary artery without angina pectoris Urinary tract infection Urinary tract infection, site not specified Obesity Obesity, unspecified Paroxysmal atrial fibrillation (CMS/HCC) (HCC) Atrial fibrillation documented in this encounter Care Teams Brickmason Relationship Specialty Start Date End Date Ronald Castrejon MD PCP - General 03/31/13 05/28/16 documented as of this encounter
--- OUTSIDE RECORDS SUMMARY | 2024-04-11 06:41 | XMS_ITS | Encounter Summary ---
Author Organization [facility] Healthcare Address [address] [place] [address] Care Team Providers Care Slice Plug Cutter Operator Helper Name Role Phone Ronald Castrejon MD Primary Care Provider Encounter Details Date Type Department Care Team (Late st Contact Info) Description 10/23/2015 11:37 AM CDT - 10/23/2015 3:55 PM CDT Hospital Encounter CH Reynaldo Harvey, DO [address] [place] [address] Paroxysmal atrial fibrillation (CMS/HCC); Atherosclerotic heart disease of [place] coronary artery without angina pectoris; Other abnormal glucose; Essential (primary) hypertension; Family history of ischemic heart disease and other diseases of the circulatory system; Personal history of nicotine dependence; Old myocardial infarction Social History Tobacco Use Types Packs/Day Years Used Date Smoking Tobacco: Former Cigarettes Q uit: 03/24/1969 Alcohol Use Standard Drinks/Week Comments No 0 (1 standard drink = 0.6 oz pur e alcohol) Comments Unknown Sex and Gender Information Value Date Recorded Sex Assigned at Not on file Legal 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 us Historical Provider LAB BLOOD ORDERABLES Roshni l Result * Staphylococcus Screen (10/23/2015 12:00 AM CDT) 10/23/2015 Narrative LAB NANCIE 88 - 10/24/2015 4:22 PM CDT [facility] ?Patient Name: ?ABENA GIRON ?Med. Rec#: ?? [id number] ?Pt. Acct.#: ??[id number] ?Birthdate: ?? 1940 ?Age / Sex: ?? 75Y / F ?Location: ?[facility] ([facility] ?Admit Date: ??10/23/2015 ?Discharge Date: ? 10/23/2015 ?Doctor: ?Reynaldo Flannery D.O. ?Patient Type: ?CH Same Day Surgery Culture, Staph Screen for MRSA ? Collected: 10/23/2015 12:10 Specimen: Swab ?? Specimen Source: Nose, external nares Status: Final ??Last Update: 10/24/2015 15:23 Culture Result ?? Culture NEGATIVE for Methicillin Resistant Staphylococcus ?? 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
--- OUTSIDE RECORDS SUMMARY | 2024-04-11 06:41 | XMS_ITS | Encounter Summary ---
Author Organization [facility] Healthcare Address [address] [place] [address] Care Team Providers Care Fraud Investigator Name Role Phone Unavailable Primary Care Provider Unavailabl e Encounter Details Date Type Department Care Team (Late st Contact Info) Description 03/19/2010 9:23 AM PRICER BAGGER - 03/19/2010 11:59 PM PRICER BAGGER Hospital Encounter [facility] CLINCONV Dysphagia Social History Tobacco Use Types Packs/Day Years Used Date Smoking Tobacco: Never Assessed Comments Unknown Sex and Gender Information Value Date Recorded Sex Assigned at Not on file Legal Sex Female 11:18 AM PRICER BAGGER Gender Identity Female 10/09/2022 9:08 AM CDT Sexual Orientation Choose not to disclose 2022 9:08 AM CDT documented as of this encounter Plan of Treatment Not on file documented as of this encounter Visit Diagnoses Diagnosis Dysphagia documented in this encounter
--- OUTSIDE RECORDS SUMMARY | 2024-04-11 06:41 | XMS_ITS | Encounter Summary ---
Author Organization [facility] Healthcare Address [address] [place] [address] Care Team Providers Care Adobe Cq Developer Name Role Phone Ronald Castrejon MD Primary Care Provider [phone] Encounter Details Date Type Department Care Team (Late st Contact Info) Description 01/24/2016 2:03 PM CDT - 01/24/2016 11:59 PM CDT Hospital Encounter CH Ronald Cramer MD [address] [place] [address] [address] [place] [id number] Kandy Eason NP [address] [place] [address] [address] [place] [address] Fever Social History Tobacco Use Types Packs/Day Years Used Date Smoking Tobacco: Former Cigarettes Q uit: 03/24/1969 Alcohol Use Standard Drinks/Week Comments No 0 (1 standard drink = 0.6 oz pur e alcohol) Comments Unknown Sex and Gender Information Value Date Recorded Sex Assigned at Not on file Legal Sex Female 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 Rec#: ?? [id number] ?Pt. Acct.#: ??[id number] ?Birthdate: ?? 1940 ?Age / Sex: ?? 75Y / F ?Location: ?DISCH (Laborato ?Admit Date: ??01/24/2016 ?Discharge Date: ? 01/24/2016 ?Doctor: ?Patient Type: ?CH Ancillary - Insur Culture, Urine ? Collected: 01/24/2016 14:03 Specimen: Urine ?? Specimen Source: Clean Voided Specimen Status: Final ??Last Update: 01/26/2016 10:28 Organism ?? Less than 10,000 cfu/ml of ?? Gram positive organisms us Historical Provider MD LAB MICROBIOLOGY - GENERA L ORDERABLES Final Result CDR HISTORICAL RESULTS * Blood Microbiology (01/24/2016 12:00 AM CDT) 01/24/2016 Narrative CDR HISTORICAL RESULTS - 01/30/2016 4:44 PM [facility] ?Patient Name: ?ABENA HALL ?Med. Rec#: ?? [id number] ?Pt. Acct.#: ??[id number] ?Birthdate: ?? 1940 ?Age / Sex: ?? 75Y / F ?Location: ?DISCH (Laborato ?Admit Date: ??01/24/2016 ?Discharge Date: ? 01/24/2016 ?Doctor: ?Patient Type: ?CH Ancillary - Insur Culture, Blood ? Collected: 01/24/2016 14:03 Specimen: Blood ?? Specimen Source: Status: Final ??Last Update: 01/24/2016 16:12 Culture Result ?? No Growth us Historical Provider LAB MICROBIOLOGY - GENERA L ORDERABLES Final Result CDR HISTORICAL RESULTS documented in this encounter Visit Diagnoses Diagnosis Fever Fever, unspecified documented in this encounter Care Teams Adobe Cq Developer Relationship Specialty Start Date End Date Ronald Castrejon MD PCP - General 03/31/13 05/28/16 documented as of this encounter
--- OUTSIDE RECORDS SUMMARY | 2024-04-11 06:41 | XMS_ITS | Encounter Summary ---
Author Organization [facility] Healthcare Address [address] [place] [address] Care Team Providers Care Leader Tier Name Role Phone Unavailable Primary Care Provider Unavailabl e Encounter Details Date Type Department Care Team (Late st Contact Info) Description 05/08/2010 10:49 AM ACUPRESSURE THERAPIST - 05/08/2010 11:59 PM ACUPRESSURE THERAPIST Hospital Encounter [facility] Jose Frausto MD [address] [place] [address] [address] Benign renovascular hypertension; Palpitations Social History Tobacco Use Types Packs/Day Years Used Date Smoking Tobacco: Never Assessed Comments Unknown Sex and Gender Information Value Date Recorded Sex Assigned at Not on file Legal Sex Female 11:18 AM ACUPRESSURE THERAPIST Gender Identity Female 10/09/2022 9:08 AM CDT Sexual Orientation Choose not to disclose 2022 9:08 AM CDT documented as of this encounter Plan of Treatment Not on file documented as of this encounter Visit Diagnoses Diagnosis 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
--- OUTSIDE RECORDS SUMMARY | 2024-04-11 06:41 | XMS_ITS | Encounter Summary ---
Author Organization [facility] Healthcare Address [address] [place] [address] Care Team Providers Care Electrician Control Equipment Name Role Phone Ronald Castrejon MD Primary Care Provider Encounter Details Date Type Department Care Team (Late st Contact Info) Description 09/14/2015 2:43 AM CDT - 09/14/2015 4:20 AM CDT Hospital Encounter [facility] Dallas Montano MD [address] [place] [address] [address] [place] [address] Pain in throat; Essential (primary) hypertension; Atherosclerotic heart disease of [place] coronary artery without angina pectoris; Presence of coronary angioplasty implant and graft Social History Tobacco Use Types Packs/Day Years Used Date Smoking Tobacco: Former Cigarettes Q uit: 03/24/1969 Alcohol Use Standard Drinks/Week Comments No 0 (1 standard drink = 0.6 oz pur e alcohol) Comments Unknown Sex and Gender Information Value Date Recorded Sex Assigned at Not on file 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 Gender Identity Female 10/09/2022 9:08 AM [...] Name Priority Date/Time Associated Diagnosis Comments SERUM ESTIMATED GLOMERULAR FILTRATION RATE Routine 09/14/2015 3:11 AM CDT PLASMA TROPONIN-T Routine 09/14/2015 3:1 1 AM CDT PLASMA COMPREHENSIVE METABOLIC PANEL Routine 09/14/2015 3:11 AM CDT BLOOD PROTHROMBIN TIME (PT) Routine 09/14/2015 3:11 AM CDT BLOOD PRO B-TYPE NATRIURETIC PEPTIDE Routine 09/14/2015 3:11 AM CDT BLOOD PARTIAL THROMBOPLASTIN TIME (PTT) Routine 09/14/2015 3:11 AM CDT BLOOD CELL COUNT (CBC), MORPHOLOGIC EXAM Routine 09/14/2015 3:11 AM CDT BLOOD CELL MORPHOLOGIC EXAM Routine 09/14/2015 3:11 AM CDT ELECTROCARDIOGRAPHY (ECG) 09/14/2015 DISCHARGE LABORATORY CUMULATIVE REPORT 09/14/2015 documented in this encounter Results * (ABNORMAL) Plasma comprehensive metabolic panel (09/14/2015 3:11 AM CDT) Sodium 141 135 - 145 mmol/L HISTORICAL RESULTS K, pl 3.9 3.5 - 5.1 mmol/L HISTORICAL RESULTS Chloride 102 97 - 110 mmol/L HISTORICAL RESULTS CO2 26 22 - 32 mmol/L HISTORICAL RESULTS A. gap 17(H) 8 - 16 mmol/L HISTORICAL RESULTS Glucose 108 70 - 199 mg/dl HISTORICAL RESULTS Comment: Interpretive Data Note:The glucose is assumed non fasting Fastin-99 mg/dL Random: ??70-199 mg/dL Either a fasting glucose > 126 mg/dL or a random glucose > 200 mg/dL plus symptoms is diagnostic of diabetes when confirmed on another day. Fasting values > 100 mg/dL but < 125 mg/dL are diagnostic of impaired fasting glucose. Current interpretive data was last revised on 2014. BUN 14.4 8.0 - 25.0 mg/dl HISTORICAL RESULTS Creatinine 0.54(L) 0.60 - 1.10 mg/dl HISTORICAL RESULTS BUN/creat ratio 27(H) 10 - 20 HIST ORICAL RESULTS Calcium 9.3 8.6 - 10.2 mg/dl HISTORICAL RESULTS Protein, sr 6.8 6.0 - 8.4 g/dl HISTORICAL RESULTS Alb 4.2 3.6 - 5.0 g/dl HISTORICAL RESULTS Alk phos 49 40 - 130 Units/L HISTORICAL RESULTS ALT 12 5 - 45 Units/L HISTORICAL RESULTS AST 19 10 - 40 Units/L HISTORICAL RESULTS Bilirubin 0.4 <=1.2 mg/dl HISTORICAL RESULTS Plasma 09/14/2015 3:11 AM CDT us Historical Provider LAB BLOOD ORDERABLES Roshni schneider Result HISTORICAL RESULTS * Plasma troponin-T (09/14/2015 3:11 AM CDT) Troponin T <0.01 0.00 - 0.06 ng/ml HISTORICAL RESULTS Comment: Interpretive Data Troponin table: ? Negative ? 0.00-0.06 ng/ml ? Indeterminate ?0.07-0.10 ng/ml ? Consistent with Myocardial Injury ?Greater than 0.10 ng/ml ?? Current interpretive data was last revised on 2014 Plasma 09/14/2015 3:11 AM CDT Historical Provider MD LAB BLOOD ORDERABLES Roshni l Result Performing Organization Address [facility] de Phone Number HISTORICAL RESULTS * (ABNORMAL) Blood Pro B-type natriuretic peptide (09/14/2015 3:11 AM CDT) Pathologist [facility] Pro BNP 362.0(H) 10.0 - 280.0 pg/ml HISTORICAL RESULTS Comment: Diagnosis of Congestive Heart Failure: ??Heart [...] last revised on 2014. Blood specimen (specimen) 09/14/2015 3:11 AM CDT Historical Provider MD LAB BLOOD ORDERABLES Roshni l Result Performing Organization Address [facility] de Phone Number HISTORICAL RESULTS * Blood partial thromboplastin time (PTT) (09/14/2015 3:11 AM CDT) PTT 28.4 25.0 - 37.0 seconds HISTORICAL RESULTS Blood specimen (specimen) 09/14/2015 3:11 AM CDT Historical Provider LAB BLOOD ORDERABLES Roshni l Result Performing Organization Address [facility] de Phone Number HISTORICAL RESULTS * Blood prothrombin time (PT) (09/14/2015 3:11 AM CDT) Prothrombin time (PT) 11.1 9.5 - 12.5 seconds HISTORICAL RESULTS INR 1.03 0.90 - 1.20 HISTORIC AL RESULTS Comment: Interpretive Data Recommended ranges for Protime INR: 2.0 - 3.0 Most indications for Warfarin therapy (e.g. Treatment of DVT, PE, bioprosthetic valve replacement, prophylaxis venous thrombosis, atrial fibrillation). 2.5 - 3.5 Mechanical mitral valve or dual mechanical mitral and Aortic valve replacement. Current Interpretive Data was last revised on 2014. Blood specimen (specimen) 09/14/2015 3:11 AM CDT Result [facility] Historical Provider LAB BLOOD ORDERABLES Roshni l Result Performing Organization Address [facility] de Phone Number HISTORICAL RESULTS * Blood cell morphologic exam (09/14/2015 3:11 AM CDT) Neutrophils 52.2 44.0 - 80.0 % HISTORICAL RESULTS Immature granulocytes 0.4 0.0 - 1.0 % HISTORICAL RESULTS Lymphocytes 37.0 13.0 - 44.0 % HISTORICAL RESULTS Monos 7.2 2.0 - 11.0 % HISTORICAL RESULTS Eosinophils 2.4 0.0 - 6.0 % HISTORICAL RESULTS Basophils 0.8 0.0 - 3.0 % HISTORICAL RESULTS Neutrophils, abs 4.1 1.6 - 7.0 K/cumm HISTORICAL RESULTS Immature granulocyte, abs 0.0 0.0 - 0.2 K/cumm HISTORICAL RESULTS Lymphocytes, abs 2.9 0.5 - 4.3 K/cumm HISTORICAL RESULTS Monocytes, absolute 0.6 0.1 - 1.0 K/cumm HISTORICAL RESULTS Eosinophils, abs 0.2 0.0 - 0.6 K/cumm HISTORICAL RESULTS Basophils, abs 0.1 0.0 - 0.3 K/cumm HISTORICAL RESULTS Blood specimen (specimen) 09/14/2015 3:11 AM CDT Historical Provider LAB BLOOD ORDERABLES Roshni l Result Performing Organization Address [facility] de Phone Number HISTORICAL RESULTS * Blood cell count (CBC), morphologic exam (09/14/2015 3:11 AM CDT) WBC 7.8 3.8 - 9.8 K/cumm HISTORICAL RESULTS RBC 4.23 3.90 - 5.00 M/cumm HISTORICAL RESULTS Hgb 13.3 12.1 - 15.1 g/dl HISTORICAL RESULTS Hct 38.9 36.1 - 44.3 % HISTORICAL RESULTS MCV 92.0 80.0 - 100.0 fl HISTORICAL RESULTS MCH 31.4 26.7 - 33.7 pg HISTORICAL RESULTS MCHC 34.2 32.7 - 36.0 g/dl HISTORICAL RESULTS Rdw 12.1 11.5 - 14.6 % HISTORICAL RESULTS Platelets 206 140 - 440 K/cumm HISTORICAL RESULTS MPV 10.3 8.0 - 12.0 fl HISTORICAL RESULTS NRBC 0.0 0.0 - 0.0 % HISTORIC AL RESULTS NRBC, abs 0.00 0.00 - 0.00 K/cumm HISTORICAL RESULTS Blood specimen (specimen) 09/14/2015 3:11 AM CDT Historical Provider LAB BLOOD ORDERABLES Roshni l Result Performing Organization Address [facility] Co de Phone Number HISTORICAL RESULTS * Serum estimated glomerular filtration rate (09/14/2015 3:11 AM CDT) eGFR >60 ml/min/1.7 3 m2 HISTORICAL RESULTS Comment: Interpretation of Estimated GFR (eGFR): Normal ?>/= 60 mL/min/1.73m2 Possible Chronic Kidney Disease ??15 - 59 mL/min/1.73m2 Possible Kidney Failure ?< 15 ??mL/min/1.73m2 If -Emirati multiply value by 1.16. ??Estimated glomerular filtration rate is determined by the CKD-EPI equation recommended by the National Kidney Foundation (KDIGO 2012 Clinical Practice Guideline for the Evaluation and Management of Chronic Kidney Disease. ??Kidney Intnl Suppl Mar 2012;3:1). ??The CKD-EPI equation should not be used in acute renal failure or acute kidney injury and is not valid in children. Serum 09/14/2015 3:11 AM CDT [facility] Provider LAB BLOOD ORDERABLES Roshni l Result HISTORICAL RESULTS * DISCHARGE LABORATORY CUMULATIVE REPORT (09/14/2015) Narrative 09/14/2015 Ordered by an unspecified provider. [facility] Provider LAB BLOOD ORDERABLES Roshni l Result * ELECTROCARDIOGRAPHY (ECG) (09/14/2015) Narrative 09/14/2015 Ordered by an unspecified provider. 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
--- OUTSIDE RECORDS SUMMARY | 2024-04-11 06:41 | XMS_ITS | Encounter Summary ---
Author Organization [facility] Healthcare Address [address] [place] [address] Care Team Providers Care Maxillofacial Prosthodontist Name Role Phone Ronald Castrejon MD Primary Care Provider [phone] Encounter Details Date Type Department Care Team (Late st Contact Info) Description 01/23/2013 1:22 AM CDT - 01/23/2013 2:45 AM CDT Hospital Encounter [facility] Carson Chao MD [facility] [place] [address] Essential hypertension; Anxiety state Social History Tobacco Use Types Packs/Day Years Used Date Smoking Tobacco: Former Cigarettes Q uit: 03/24/1969 Alcohol Use Standard Drinks/Week Comments No 0 (1 standard drink = 0.6 oz pur e alcohol) Comments Unknown Sex and Gender Information Value Date Recorded Sex Assigned at Not on file 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
--- OUTSIDE RECORDS SUMMARY | 2024-04-11 06:41 | XMS_ITS | Encounter Summary ---
Author Organization [facility] Healthcare Address [address] [place] [address] Care Team Providers Care Planting Material Carrier Name Role Phone Unavailable Primary Care Provider Unavailabl e Encounter Details Date Type Department Care Team (Late st Contact Info) Description 06/15/2010 12:01 AM CDT - 06/15/2010 11:59 PM CDT Hospital Encounter [facility] Jose Frausto MD [address] [place] [id number] Procedure not carried out for other reasons Social History Tobacco Use Types Packs/Day Years Used Date Smoking Tobacco: Never Assessed Comments Unknown Sex and Gender Information Value Date Recorded Sex Assigned at Not on file 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
--- OUTSIDE RECORDS SUMMARY | 2024-04-11 06:41 | XMS_ITS | Encounter Summary ---
Author Organization [facility] Healthcare Address [address] [place] [address] Care Team Providers Care Director Mortgage Name Role Phone Ronald Castrejon MD Primary Care Provider [phone] Encounter Details Date Type Department Care Team (Late st Contact Info) Description 09/28/2015 11:48 AM CDT - 09/28/2015 11:59 PM CDT Hospital Encounter [facility] Ronald Cramer MD [address] [place] [address] [address] [place] [id number] Kandy Eason NP [address] [place] [address] [address] MEEK [address] [place] [id number] Atrial fibrillation (CMS/HCC) Social History Tobacco Use Types Packs/Day Years Used Date Smoking Tobacco: Former Cigarettes Q uit: 03/24/1969 Alcohol Use Standard Drinks/Week Comments No 0 (1 standard drink = 0.6 oz pur e alcohol) Comments Unknown Sex and Gender Information Value Date Recorded Sex Assigned at Not on file 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
--- OUTSIDE RECORDS SUMMARY | 2024-04-11 06:41 | XMS_ITS | Encounter Summary ---
Author Organization [facility] Healthcare Address [address] [place] [address] Care Team Providers Care Rod Piler Name Role Phone Ronald Castrejon MD Primary Care Provider [phone] Encounter Details Date Type Department Care Team (Latest Contact Info) Description 09/09/2014 4:58 AM CDT - 09/09/2014 7:17 AM CDT Hospital Encounter [facility] Nikolas Ivory MD [address] [place] [id number] Essential hypertension; Old myocardial infarction; Pure hypercholesterolemia; Coronary atherosclerosis of [place] coronary artery; Postsurgical percutaneous transluminal coronary angioplasty status; Encounter for long-term use of antiplatelets/antithrom botics; Encounter for long-term (current) use of aspirin; Personal history of tobacco use, presenting hazards to health Social History Tobacco Use Types Packs/Day Years Used Date Smoking Tobacco: Former Cigarettes Q uit: 03/24/1969 Alcohol Use Standard Drinks/Week Comments No 0 (1 standard drink = 0.6 oz pur e alcohol) Comments Unknown Sex and Gender Information Value Date Recorded Sex Assigned at Not on file 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 Gender Identity Female 10/09/2022 9:08 AM CDT Sexual Orientation Choose not to disclose 2022 9:08 AM CDT documented as of this encounter Plan of Treatment Not on file documented as of this encounter Procedures Procedure Name Priority Date/Time Associated Diagnosis Comments XR CHEST PA LATERAL 2 VIEWS Routine 09/09/2014 5:30 AM CDT SERUM MAGNESIUM Routine 09/09/2014 5:29 AM CDT SERUM COMPREHENSIVE METABOLIC PANEL Routine 09/09/2014 5:29 AM CDT PLASMA PROTHROMBIN TIME (PT) Routine 09/09/2014 5:29 AM CDT PLASMA PARTIAL THROMBOPLASTIN TIME (PTT) Routine 09/09/2014 5:29 AM CDT BLOOD WBC CELL MORPHOLOGIC EXAM, AUTO Routine 09/09/2014 5:29 AM CDT BLOOD CELL COUNT (CBC) Routine 5 5:29 AM CDT PLASMA TROPONIN-T Routine 09/09/2014 12: 29 AM CDT BLOOD PRO B-TYPE NATRIURETIC PEPTIDE Routine 09/09/2014 12:29 AM CDT ELECTROCARDIOGRAPHY (ECG) 09/09/2014 DISCHARGE LABORATORY CUMULATIVE REPORT Routine 09/09/2014 12:00 AM CDT documented in this encounter Results * XR Chest PA Lateral 2 View (09/09/2014 5:30 AM CDT) Anatomical Region Laterality Modality Body, Chest N/A Radiographic Patricia ging 09/09/2014 5:30 AM CDT Narrative 09/09/2014 10:45 PM CDT Mr XR Chest 2 Views ?[id number] ??Acc#: ??[id number] DATE OF EXAM: ??Sep 09 2014 CLINICAL HISTORY: Left arm pain, chills, ear pain, elevated blood pressure. ??Previous smoker. RESULT: Erect PA and lateral views are compared to portable chest on 05 January 2014. Heart size is near upper limits of normal. ??Pulmonary vascularity is normal. ??Thoracic aorta is mildly tortuous, but not dilated. ??No pulmonary infiltrate, mass or pleural effusion is seen. ??Mild to moderate spurring is noted in the thoracic spine. ??There are surgical clips in the right upper quadrant suggestive of prior cholecystectomy. IMPRESSION: 1. NO ACTIVE DISEASE SEEN. 2. NO SIGNIFICANT CHANGE SINCE 05 JANUARY 2014. Interpreting Physician: ??DR CIRILO SAWYER M.D. ??Read on: ??Sep 09 2014 8:43A Transcribed by: ??mrr ??On: Sep 09 2014 11:21A Approved Electronically by: ??DIGNA Laird, DR KERR ??on: ??Sep 09 2014 10:45P Attending: ??NIKOLAS RODRIGUEZ Requesting: ??JANELLE POE Requesting Fax: ??-- Attending Fax: ??-- Attending ID: ??[id number] Requesting ID: ??[id number] Report To 1 ID: ??[id number] Report To 1 Name: ??NIKOLAS RODRIGUEZ Report To 1 FAX: ??-- NextGen Order #: Procedure Note Provider, MD Rosalinda - 07/15/2016 Mr XR Chest 2 Views [id number] Acc#: [id number] DATE OF EXAM: Sep 09 2014 CLINICAL HISTORY: Left arm pain, chills, ear pain, elevated blood pressure. Previoussmoker. RESULT: Erect PA and lateral views are compared to portable chest on December2013. Heart size is near upper limits of normal. Pulmonary vascularity isnormal. Thoracic aorta is mildly tortuous, but not dilated. No pulmonaryinfiltrate, mass or pleural effusion is seen. Mild to moderate spurringis noted in the thoracic spine. There are surgical clips in the rightupper quadrant suggestive of prior cholecystectomy. IMPRESSION: 1. NO ACTIVE DISEASE SEEN. 2. NO SIGNIFICANT CHANGE SINCE 05 JANUARY 2014. Interpreting Physician: DR CIRILO SAWYER M.D. Read on: Sep 09 20148:43A Transcribed by: mrr On: Sep 09 2014 11:21A Approved Electronically by: DR CIRILO SAWYER M.D. on: Sep 09 201410:45P Attending: NIKOLAS RODRIGUEZ Requesting: JANELLE POE Requesting Fax: -- Attending Fax: -- Attending ID: [id number] Requesting ID: [id number] Report To 1 ID: [id number] Report To 1 Name: ANG RODRIGUEZOTHY Report To 1 FAX: -- NextGen Order #: us Historical Provider IMG XR PROCEDURES Final R esult * Plasma partial thromboplastin time (PTT) (09/09/2014 5:29 AM CDT) APTT 27.2 -<36. seconds HISTOR ICAL RESULTS Plasma 09/09/2014 5:29 AM CDT Janelle Poe MD LAB BLOOD ORDERABLES Final Re sult HISTORICAL RESULTS * Plasma prothrombin time (PT) (09/09/2014 5:29 AM CDT) Prothrombin time (PT) 13.2 10.9 - 14.8 seconds HISTORICAL RESULTS INR 1.04 HISTORICAL RESULTS Comment: RECOMMENDED RANGES FOR PROTIME [...] with Food and Drug Administration recommendations. Plasma 09/09/2014 5:29 AM CDT us Janelle Poe MD LAB BLOOD ORDERABLES Final Re sult Performing Organization Address [facility] de Phone Number HISTORICAL RESULTS * Serum magnesium (09/09/2014 5:29 AM CDT) Magnesium 2.1 1.6 - 2.4 mg/dl HISTORICAL RESULTS Serum 09/09/2014 5:29 AM CDT us Janelle Poe MD LAB BLOOD ORDERABLES Final Re sult Performing Organization Address [facility] de Phone Number HISTORICAL RESULTS * (ABNORMAL) Blood cell count (CBC) (09/09/2014 5:29 AM CDT) WBC 8.0 4.0 - 10.5 K/cumm HISTORICAL RESULTS RBC 4.51 4.20 - 5.40 M/cumm HISTORICAL RESULTS Hgb 14.2 12.0 - 16.0 g/dl HISTORICAL RESULTS Hct 40.6 37.0 - 47.0 % HISTORICAL RESULTS MCV 90.0 77.0 - 97.0 fl HISTORICAL RESULTS MCH 31.5 23.0 - 34.0 pg HISTORICAL RESULTS MCHC 35.0 32.0 - 36.0 g/dl HISTORICAL RESULTS Rdw 12.5 11.5 - 14.5 % HISTORICAL RESULTS Platelets 214 150 - 400 K/cumm HISTORICAL RESULTS MPV 10.6(H) 7.4 - 10.4 fl HISTORICAL RESULTS Blood specimen (specimen) 09/09/2014 5:29 AM CDT us Janelle Poe MD LAB BLOOD ORDERABLES Final Re sult Performing Organization Address [facility] de Phone Number HISTORICAL RESULTS * (ABNORMAL) Blood WBC cell morphologic exam, auto (09/09/2014 5:29 AM CDT) Pathologist [facility] Lymphocytes 31.3 25.0 - 33.0 % HISTORICAL RESULTS Monos 8.9 0.0 - 13.0 % HISTORICAL RESULTS Neutrophils 56.9 54.0 - 69.0 % HISTORICAL RESULTS Eosinophils 2.0 0.0 - 10.0 % HISTORICAL RESULTS Basophils [...] 0.0 K/cumm HISTORICAL RESULTS Blood specimen (specimen) 09/09/2014 5:29 AM CDT us Janelle Poe MD LAB BLOOD ORDERABLES Final Re sult HISTORICAL RESULTS * (ABNORMAL) Serum comprehensive metabolic panel (09/09/2014 5:29 AM CDT) Pathologist [facility] BUN 15.8 8.0 - 25.0 mg/dl HISTORICAL RESULTS Sodium 136 135 - 145 mmol/L HISTORICAL RESULTS Potassium, sr 3.8 3.5 - 5.1 mmol/L HISTORICAL RESULTS Chloride 99 97 - 110 mmol/L HISTORICAL RESULTS CO2 25 22 - 32 mmol/L HISTORICAL RESULTS Glucose 121 [...] mg/dL are diagnostic of impaired fasting glucose. Creatinine 0.62 0.60 - 1.10 mg/dl HISTORICAL RESULTS BUN/creat ratio 25(H) 10 - 20 HIST ORICAL RESULTS A. gap 16 8 - 16 mmol/L HISTORICAL RESULTS Protein, sr 7.3 6.2 - 8.2 g/dl HISTORICAL RESULTS Alb 4.4 3.6 - 5.0 g/dl HISTORICAL RESULTS Alb/glob ratio 1.5 1.1 - 1.8 HISTO RICAL RESULTS Calcium 9.3 8.6 - 10.2 mg/dl HISTORICAL RESULTS Bilirubin 0.4 0.1 - 1.2 mg/dl HISTORICAL RESULTS Alk phos 51 40 - 130 Units/L HISTORICAL RESULTS AST 19 10 - 40 Units/L HISTORICAL RESULTS ALT 16 5 - 45 Units/L HISTORICAL RESULTS Serum 09/09/2014 5:29 AM CDT us Janelle Poe MD LAB BLOOD ORDERABLES Final Re sult Performing Organization Address [facility] de Phone Number HISTORICAL RESULTS * Plasma troponin-T (09/09/2014 12:29 AM CDT) Troponin T <0.01 0.00 - 0.06 ng/ml HISTORICAL RESULTS Plasma 09/09/2014 12:2 9 AM CDT Narrative HISTORICAL RESULTS - 09/09/2014 1:38 AM CDT Negative: ??0.00-0.06 ng/ml Indeterminate: ??0.07-0.10 ng/ml Consistent with Myocardial Injury: ??Greater than 0.10 ng/ml us Janelle Poe MD LAB BLOOD ORDERABLES Final Re sult Performing Organization Address [place]/[facility] Co de Phone Number HISTORICAL RESULTS * (ABNORMAL) Blood Pro B-type natriuretic peptide (09/09/2014 12:29 AM CDT) Pro BNP 540.0(H) 10.0 - 150.0 pg/ml HISTORICAL RESULTS Blood specimen (specimen) 09/09/2014 12:29 AM CDT Narrative HISTORICAL RESULTS - 09/09/2014 1:38 AM CDT NT-proBNP ?? DIAGNOSIS OF CONGESTIVE HEART FAILURE Heart Failure Unlikely: ??All Ages ?Less than 300 pg/ml Heart Failure Possible: ??Less than 50Y ? 300-450 pg/ml ? 50-75Y ?300-900 pg/ml ? 75-160Y ? 300-1800 pg/ml Heart Failure Likely: ?Less than 50Y ? Greater than 450 pg/ml ? 50-75Y ?Greater than 900 pg/ml ? 75-160Y ? Greater than 1,800 pg/ml Renal Failure: ? All Ages ?Greater than 1,200 pg/ml us Janelle Poe MD LAB BLOOD ORDERABLES Final Re sult HISTORICAL RESULTS * Discharge Laboratory Cumulative Report (09/09/2014 12:00 AM CDT) 09/09/2014 Narrative HISTORICAL RESULTS - 09/10/2014 2:46 AM CDT Patient No: [id number] ? [facility] Patient Name: ABENA GIRON ? [facility] Age: 74 YRS ?: 1940 ?Sex:F ?[address] )[id number] ?? Adm Dt: 09/09/2014 ?[place] ??[id number] Created: 09/10/2014 ??0246 ?? Pt. Type: E ? Discharge Dt: 09/09/2014 ? Pathologists: Rachel Bell MD Admit Attend Dr: JANELLE POE MD ? BLOOD CELL COUNTS ?Collection Date: ?09/09/14 ?Collection Time: ?0529 ? Ref Range: ?? Units: [4.00-10.50] /CMM ? WBC X 10^3 ?7.96 [4.20-5.40] ??/CMM ? RBC X 10^6 ?4.51 [12.0-16.0] ??G/DL ? HGB ? 14.2 [37.0-47.0] ??% ?HCT ? 40.6 [77.0-97.0] ??FL ? MCV ? 90.0 [23.0-34.0] ??PG ? MCH ? 31.5 [32.0-36.0] ??% ?MCHC ?35.0 [11.5-14.5] ??% ?RDW ? 12.5 [150-400] ?? /CMM ? PLT X 10^3 ? 214 ?BLOOD CELL DIFFERENTIAL ?Collection Date: ?09/09/14 ?Collection Time: ?0529 ? Ref Range: ?? Units: [54.0-69.0] ??% ?NEUTROPHILS ? 56.9 [25.0-33.0] ??% ?LYMPHOCYTES ? 31.3 [0.0-13.0] ??% ?MONOCYTES ?8.9 [0.0-10.0] ??% ?EOSINOPHILS ?2.0 [0.0-1.0] ?? % ?BASOPHILS ?0.6 ? /CMM ? A LYMPHOCYTE ? 2.5 [0.0-1.0] ?? % ?IMM GRAN % ? 0.3 [0.00-0.02] ??/CMM ? A IMM GRAN ?0.02 [1.1-1.9] ?? /CMM ? A MONOCYTE ? 0.7 L [1.4-6.5] ?? /CMM ? A NEUTROPHIL ? 4.5 [0.0-0.7] ?? /CMM ? A EOSINOPHIL ? 0.2 [0.0-0.2] ?? /CMM ? A BASOPHIL ? 0.1 Footnotes and Symbols: L = Low ?? CONTINUED ?Page: ?? 1 Patient No: [id number] ? [facility] Patient Name: ABENA GIRON ? [facility] Age: 74 YRS ?: 1940 ?Sex:F ?[address] )[phone] ?? Adm Dt: 09/09/2014 ?[place] ??[id number] Created: 09/10/2014 ??0246 ?? Pt. Type: E ? Discharge Dt: 09/09/2014 ? Pathologists: Rachel Bell MD Admit Attend Dr: JANELLE POE MD ? GENERAL CHEMISTRY ?Collection Date: ?09/09/14 ?Collection Time: ?0529 ? Ref Range: ?? Units: [0.00-0.06] ??NG/ML ?TROPONIN T ? <0.01 f ??[10-150] ?? pg/ml ?NT proBNP ?540 Hf [135-145] ?? MMOL/L ? SODIUM ? 136 [3.5-5.1] ?? MMOL/L ? POTASSIUM ?3.8 [97.0-110.0] MMOL/L ? CHLORIDE ?99.0 [22.0-32.0] ??MMOL/L ? TOTAL CO2 ? 25.1 ?? [8-16] ?MMOL/L ? ANION GAP ? 16 ??[70-199] ?? MG/DL ?GLUCOSE ?121 f [6.2-8.2] ?? G/DL ? TOTAL PROTEIN ?7.3 Footnotes and Symbols: H = High, f = Footnote TROPONIN T (05/01/14 -- Current) Negative: ??0.00-0.06 ng/ml Indeterminate: ??0.07-0.10 ng/ml Consistent with Myocardial Injury: ??Greater than 0.10 ng/ml NT proBNP (05/31/14 -- Current) NT-proBNP ?? DIAGNOSIS OF CONGESTIVE HEART FAILURE Heart Failure Unlikely: ??All Ages ?Less than 300 pg/ml Heart Failure Possible: ??Less than 50Y ? 300-450 pg/ml ? 50-75Y ?300-900 pg/ml ? 75-160Y ? 300-1800 pg/ml Heart Failure Likely: ?Less than 50Y ? Greater than 450 pg/ml ? 50-75Y ?Greater than 900 pg/ml ? 75-160Y ? Greater than 1,800 pg/ml Renal Failure: ? All Ages ?Greater than 1,200 pg/ml GLUCOSE (05/04/14 -- Current) Note:The glucose is assumed non fasting Fastin-99 mg/dl Random: 70-199 mg/dl Either a fasting glucose > 126 mg/dL or a random glucose > 200 mg/dL plus symptoms is diagnostic of diabetes when confirmed on another day. Fasting values > 100 mg/dl but < 125 mg/dL are diagnostic of impaired fasting glucose. ?? CONTINUED ?Page: ?? 2 Patient No: [id number] ? [facility] Patient Name: ABENA GIRON ? [facility] Age: 74 YRS ?: 1940 ?Sex:F ?[address] )[id number] ?? Adm Dt: 09/09/2014 ?[place], [place] ??[id number] Created: 09/10/2014 ??0246 ?? Pt. Type: E ? Discharge Dt: 09/09/2014 ? Pathologists: Rachel Bell MD Admit Attend Dr: JANELLE POE MD ? GENERAL CHEMISTRY ?Collection Date: ?09/09/14 ?Collection Time: ?0529 ? Ref Range: ?? Units: [3.6-5.0] ?? G/DL ? ALBUMIN ?4.4 [1.1-1.8] ?A/G RATIO ?1.5 [8.6-10.2] ??MG/DL ?CALCIUM ?9.3 [0.1-1.2] ?? MG/DL ?BILI TOTAL ? 0.4 ??[40-130] ?? U/L ?ALK PHOS ?51 ??[10-40] ?U/L ?AST(SGOT) ? 19 f ?? [5-45] ?U/L ?ALT(SGPT) ? 16 f [8.0-25.0] ??MG/DL ?BUN ? 15.8 ??[10-20] ? B/C RATIO ? 25 H [0.60-1.10] ??MG/DL ?CREATININE ?0.62 [1.6-2.4] ?? MG/DL ?MAGNESIUM ?2.1 Footnotes and Symbols: H = High, f = Footnote AST(SGOT) (08/05/13 -- Current) ALT(SGPT) (10/13/12 -- Current) ?? CONTINUED ?Page: ?? 3 Patient No: [id number] ? [facility] Patient Name: ABENA GIRON ? [facility] Age: 74 YRS ?: 1940 ?Sex:F ?[address] )[phone] ?? Adm Dt: 09/09/2014 ?[place] ??[id number] Created: 09/10/2014 ??0246 ?? Pt. Type: E ? Discharge Dt: 09/09/2014 ? Pathologists: Rachel Bell MD Admit Attend Dr: JANELLE POE MD ?COAGULATION ? Units: ?? PROTIME ?INR ?APTT PAT ? Low: ??[10.9-14.8] ? [< ?? 36.0] ? Ref Range: ? SECS ?SECS ? 09/09/14 0529 ?13.2 ? 1.04 f ? 27.2 Footnotes and Symbols: f = Footnote INR [...] ORDERABLES Roshni schneider Result HISTORICAL RESULTS * ELECTROCARDIOGRAPHY (ECG) (09/09/2014) Narrative 09/09/2014 Ordered by an unspecified provider. us Historical Provider ECG ORDERABLES Final Res ult documented in this encounter Visit Diagnoses Diagnosis Essential hypertension Unspecified essential hypertension Old myocardial infarction Pure hypercholesterolemia Coronary atherosclerosis of [place] coronary artery Postsurgical percutaneous transluminal coronary angioplasty status Encounter for long-term use of antiplatelets/antithrombotics Encounter for long-term (current) use of antiplatelets/antithrombotics Encounter for long-term (current) use of aspirin Personal history of tobacco use, presenting hazards to health documented in this encounter Care Teams Rod Piler Relationship Specialty Start Date End Date Ronald Castrejon MD PCP - General 03/31/13 05/28/16 documented as of this encounter
--- OUTSIDE RECORDS SUMMARY | 2024-04-11 06:41 | XMS_ITS | Encounter Summary ---
Author Organization [facility] Healthcare Address [address] [place] [address] Care Team Providers Care Media Coordinator Name Role Phone Ronald Castrejon MD Primary Care Provider [phone] Encounter Details Date Type Department Care Team (Late st Contact Info) Description 12/22/2013 3:39 PM CDT - 12/22/2013 11:59 PM CDT Hospital Encounter [facility]IN[facility] Reyes MD [address] [place] [id number] Essential hypertension; Nausea without vomiting; Mixed hyperlipidemia Social History Tobacco Use Types Packs/Day Years Used Date Smoking Tobacco: Former Cigarettes Q uit: 03/24/1969 Alcohol Use Standard Drinks/Week Comments No 0 (1 standard drink = 0.6 oz pur e alcohol) Comments Unknown Sex and Gender Information Value Date Recorded Sex Assigned at Not on file 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
--- OUTSIDE RECORDS SUMMARY | 2024-04-11 06:41 | XMS_ITS | Encounter Summary ---
Author Organization [facility] Healthcare Address [address] [place] [address] Care Team Providers Care Child Care Attendant School Name Role Phone Ronald Castrejon MD Primary Care Provider [phone] Encounter Details Date Type Department Care Team (Late st Contact Info) Description 08/16/2014 4:04 PM CDT - 08/16/2014 11:59 PM CDT Hospital Encounter [facility]CON[facility] Reyes MD [address] [place] [id number] Essential hypertension; Osteoporosis Social History Tobacco Use Types Packs/Day Years Used Date Smoking Tobacco: Former Cigarettes Q uit: 03/24/1969 Alcohol Use Standard Drinks/Week Comments No 0 (1 standard drink = 0.6 oz pur e alcohol) Comments Unknown Sex and Gender Information Value Date Recorded Sex Assigned at Not on file 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
--- OUTSIDE RECORDS SUMMARY | 2024-04-11 06:41 | XMS_ITS | Encounter Summary ---
Author Organization [facility] Healthcare Address [address] [place] [address] Care Team Providers Care Field Tech Name Role Phone Ryan Castrejon MD Primary Care Provider [phone] Encounter Details Date Type Department Care Team (Late st Contact Info) Description 09/08/2015 9:03 AM CDT - 09/08/2015 11:59 PM CDT Hospital Encounter [facility] Ryan Cortez MD [address] [place] [address] Chronic sinusitis Social History Tobacco Use Types Packs/Day Years Used Date Smoking Tobacco: Former Cigarettes Q uit: 03/24/1969 Alcohol Use Standard Drinks/Week Comments No 0 (1 standard drink = 0.6 oz pur e alcohol) Comments Unknown Sex and Gender Information Value Date Recorded Sex Assigned at Not on file 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 [id number] ??Acc#: ??[id number] DATE OF EXAM: ??Sep 08 2015 CLINICAL HISTORY: Occasional difficulty swallowing. Chronic sinusitis. RESULT: Thin section spiral axial scans through the paranasal sinuses were obtained. Axial and coronal reformatted images were reviewed. Bilateral maxillary and ethmoid sinuses have some mucosal thickening. Very minimal mucosal thickening is also seen inferiorly in the right frontal sinus. Small left maxillary sinus retention cyst or polyps are seen. Mucosal thickening is seen in the area of the right maxillary sinus ostium, but it is minimally patent. The left maxillary sinus ostium is occluded. There is no significant nasal septal deviation. Nasal turbinates are prominent bilaterally. No sclerosis or bone destruction is seen. IMPRESSION: 1. ??MILD BILATERAL MAXILLARY AND ETHMOID PLUS MINIMAL RIGHT FRONTAL SINUS MUCOSAL THICKENING. 2. ??SMALL RETENTION CYSTS OR POLYPS IN LEFT MAXILLARY SINUS. 3. ??MINIMALLY PATENT RIGHT, BUT OCCLUDED LEFT MAXILLARY SINUS OSTIA. 4. ??BILATERAL NASAL TURBINATE THICKENING. Interpreting Physician: ??DR CIRILO SAWYER M.D. ??Read on: ??Sep 08 2015 2:18P Transcribed by: ??TXD ??On: Sep 08 2015 ??2:56P Approved Electronically by: ??DR CIRILO SAWYER M.D. ??on: ??Sep 09 2015 10:46P Attending: ??DR RYAN FREY Requesting: ??RYAN FREY Requesting Fax: ??-- Attending Fax: ??[phone] Attending ID: ??[id number] Requesting ID: ??[id number] Report To 1 ID: ??[id number] Report To 1 Name: ??DR RYAN FREY Report To 1 FAX: ??[phone] NextGen Order #: Procedure Note Provider, MD Rosalinda - 07/15/[address] [place] [id number] Acc#: [id number] DATE OF EXAM: Sep 08 2015 CLINICAL HISTORY: Occasional difficulty swallowing. Chronic sinusitis. RESULT: Thin section spiral axial scans through the paranasal sinuses wereobtained. Axial and coronal reformatted images were reviewed. Bilateralmaxillary and ethmoid sinuses have some mucosal thickening. Very minimalmucosal thickening is also seen inferiorly in the right frontal sinus.Small left maxillary sinus retention cyst or polyps are seen. Mucosalthickening is seen in the area of the right maxillary sinus ostium, but itis minimally patent. The left maxillary sinus ostium is occluded. There isno significant nasal septal deviation. Nasal turbinates are prominentbilaterally. No sclerosis or bone destruction is seen. IMPRESSION: 1. MILD BILATERAL MAXILLARY AND ETHMOID PLUS MINIMAL RIGHT FRONTAL SINUSMUCOSAL THICKENING. 2. SMALL RETENTION CYSTS OR POLYPS IN LEFT MAXILLARY SINUS. 3. MINIMALLY PATENT RIGHT, BUT OCCLUDED LEFT MAXILLARY SINUS OSTIA. 4. BILATERAL NASAL TURBINATE THICKENING. Interpreting Physician: DR CIRILO SAWYER M.D. Read on: Sep 08 20152:18P Transcribed by: TXD On: Sep 08 2015 2:56P Approved Electronically by: DR CIRILO SAWYER M.D. on: Sep 09 201510:46P Attending: DR RYAN FREY Requesting: RYAN FREY Requesting Fax: -- Attending Attending ID: [id number] Requesting ID: [id number] Report To 1 ID: [id number] Report To 1 Name: DR RYAN FREY Report To 1 FAX: [phone] NextGen Order #: Historical Provider MD ALTAMIR[facility] CT PROCEDURES Final R esult documented in this encounter Visit Diagnoses Diagnosis Chronic sinusitis Unspecified sinusitis (chronic) documented in this encounter Care Teams Field Tech Relationship Specialty Start Date End Date Ryan Castrejon MD PCP - General 03/31/13 05/28/16 documented as of this encounter
--- OUTSIDE RECORDS SUMMARY | 2024-04-11 06:41 | XMS_ITS | Encounter Summary ---
Author Organization [facility] Healthcare Address [address] [place] [address] Care Team Providers Care Chief Safety Officer Name Role Phone Ronald Castrejon MD Primary Care Provider [phone] Encounter Details Date Type Department Care Team (Late st Contact Info) Description 03/29/2015 8:44 AM CONCRETE BOOM OPERATOR - 03/29/2015 11:59 PM [facility] CLINCONV Ronald Castrejon MD [address] [place] [id number] Mixed hyperlipidemia; Essential (primary) hypertension; Disorder of bone; Other abnormal findings in urine Social History Tobacco Use Types Packs/Day Years Used Date Smoking Tobacco: Former Cigarettes Q uit: 03/24/1969 Alcohol Use Standard Drinks/Week Comments No 0 (1 standard drink = 0.6 oz pur e alcohol) Comments Unknown Sex and Gender Information Value Date Recorded Sex Assigned at Not on file Legal Sex Female 11:18 AM CONCRETE BOOM OPERATOR Gender Identity Female 10/09/2022 9:08 AM CDT Sexual Orientation Choose not to disclose 2022 9:08 AM CDT documented as of this encounter Medications at Time of Discharge LORazepam (ATIVAN) 0.5 mg tablet take 1 Tablet by oral route 3 times every day as needed 90 4 03/23/2015 12/25/2016 documented as of this encounter Plan of Treatment Not on file documented as of this encounter Procedures Procedure Name Priority Date/Time Associated Diagnosis Comments URINE MICROBIOLOGY Routine 03/29/2015 12 :00 AM CONCRETE BOOM OPERATOR documented in this encounter Results * Urine Microbiology (03/29/2015 12:00 AM CONCRETE BOOM OPERATOR) 03/29/2015 Narrative HISTORICAL RESULTS - 03/30/2015 4:46 PM CONCRETE BOOM OPERATOR [facility] ?Patient Name: ?ABENA HALL ?Med. Rec#: ?? [id number] ?Pt. Acct.#: ??[id number] ?Birthdate: ?? 1940 ?Age / Sex: ?? 74Y / F ?Location: ?[facility] ([facility] ?Admit Date: ??03/28/2015 ?Discharge Date: ? 03/28/2015 ?Doctor: ?Patient Type: ?CH Ancillary - Insur Culture, Urine ? Collected: 03/29/2015 08:44 Specimen: Urine ?? Specimen Source: Clean Voided Specimen Status: Final ??Last Update: 03/30/2015 11:01 Organism ?? Less than 10,000 cfu/ml of ?? multiple Gram positive organisms Organism ?? Less than 10,000 cfu/ml of ?? Gram negative bacilli Comment ? This culture result is consistent with contamination ?? by normal genital-perineal marco. us Historical Provider LAB MICROBIOLOGY - GENERA L ORDERABLES Final Result HISTORICAL RESULTS documented in this encounter Visit Diagnoses Diagnosis Mixed hyperlipidemia Essential (primary) hypertension Unspecified essential hypertension Disorder of bone Other abnormal findings in urine documented in this encounter Care Teams Chief Safety Officer Relationship Specialty Start Date End Date Ronald Castrejon MD PCP - General 03/31/13 05/28/16 documented as of this encounter
--- OUTSIDE RECORDS SUMMARY | 2024-04-11 06:41 | XMS_ITS | Encounter Summary ---
Author Organization [facility] Healthcare Address [address] [place] [address] Care Team Providers Care Trombone Slide Assembler Name Role Phone Ronald Castrejon MD Primary Care Provider [phone] Encounter Details Date Type Department Care Team (Late st Contact Info) Description 11/22/2015 10:12 AM CDT - 11/22/2015 11:59 PM CDT Hospital Encounter [facility] CLINRonald Guardado MD [address] [place] [id number] Deficiency of other specified B group vitamins; Essential (primary) hypertension; Disorder of bone; Other abnormal glucose Social History Tobacco Use Types Packs/Day Years Used Date Smoking Tobacco: Former Cigarettes Q uit: 03/24/1969 Alcohol Use Standard Drinks/Week Comments No 0 (1 standard drink = 0.6 oz pur e alcohol) Comments Unknown Sex and Gender Information Value Date Recorded Sex Assigned at Not on file Legal Sex Female 11:18 AM HAZ TECH Gender Identity Female 10/09/2022 9:08 AM [...] as of this encounter Visit Diagnoses Diagnosis Deficiency of other specified B group vitamins Essential (primary) hypertension Unspecified essential hypertension Disorder of bone Other abnormal glucose documented in this encounter Care Teams Trombone Slide Assembler Relationship Specialty Start Date End Date Ronald Castrejon MD PCP - General 03/31/13 05/28/16 documented as of this encounter
--- OUTSIDE RECORDS SUMMARY | 2024-04-11 06:41 | XMS_ITS | Encounter Summary ---
Author Organization [facility] Healthcare Address [address] [place] [address] Care Team Providers Care Senior Branch Manager Name Role Phone Ronald Castrejon MD Primary Care Provider [phone] Encounter Details Date Type Department Care Team (Late st Contact Info) Description 09/28/2012 6:21 PM CDT - 09/28/2012 10:40 PM CDT Hospital Encounter [facility] Beth Anaya MD [address] [place] [id number] Procedure not carried out for other reasons Social History Tobacco Use Types Packs/Day Years Used Date Smoking Tobacco: Former Cigarettes Q uit: 03/24/1969 Alcohol Use Standard Drinks/Week Comments Yes 0 (1 standard drink = 0.6 oz pur e alcohol) Comments Unknown Sex and Gender Information Value Date Recorded Sex Assigned at Not on file Legal Sex Female 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
--- OUTSIDE RECORDS SUMMARY | 2024-04-11 06:41 | XMS_ITS | Encounter Summary ---
Author Organization [facility] Healthcare Address [address] [place] [address] Care Team Providers Care General Service Officer Name Role Phone Ronald Castrejon MD Primary Care Provider [phone] Encounter Details Date Type Department Care Team (Late st Contact Info) Description 01/28/2013 2:48 PM RECEPTIONIST SCHEDULER - 01/28/2013 11:59 PM RECEPTIONIST SCHEDULER Hospital Encounter CH RAJANCONFreddy Garland MD [address] [facility] [place] [address] Mari [place], PRECIOUS [address] ADRIAN Landeros [address] [address] Symptomatic menopausal or female climacteric states Social History Tobacco Use Types Packs/Day Years Used Date Smoking Tobacco: Former Cigarettes Q uit: 03/24/1969 Alcohol Use Standard Drinks/Week Comments No 0 (1 standard drink = 0.6 oz pur e alcohol) Comments Unknown Sex and Gender Information Value Date Recorded Sex Assigned at Not on file Legal Sex Female 11:18 AM RECEPTIONIST SCHEDULER Gender Identity Female 10/09/2022 9:08 AM CDT Sexual Orientation Choose not to disclose 2022 9:08 AM CDT documented as of this encounter Plan of Treatment Not on file documented as of this encounter Procedures Procedure Name Priority Date/Time Associated Diagnosis Comments SERUM PROGESTERONE Routine 01/28/2013 2: 53 PM RECEPTIONIST SCHEDULER PLASMA ESTRADIOL Routine 01/28/2013 2:53 PM RECEPTIONIST SCHEDULER SERUM TESTOSTERONE FRACTION Routine 01/28/2013 8:53 AM RECEPTIONIST SCHEDULER DISCHARGE LABORATORY CUMULATIVE REPORT 01/28/2013 documented in this encounter Results * Plasma estradiol (01/28/2013 2:53 PM RECEPTIONIST SCHEDULER) Estradiol <20 pg/ml HISTORICAL RESULTS Comment: Estradiol Reference Ranges: Female ?? <10 years ? <20 - 50 ?? pg/ml ?? Mid-Follicular ? 25 - 125 ??pg/ml ?? Mid-Cycle ?90 - 440 ??pg/ml ?? Mid-Luteal ? 50 - 300 ??pg/ml ?? Post Menopausal ?? <20 - 50 ?? pg/ml Male ?<20 - 50 ?? pg/ml Estradiols are now standardized to the reference method of ID-GCMS. Plasma 01/28/2013 2:53 PM RECEPTIONIST SCHEDULER us Mari [place] ROLLER LEVELER LAB BLOOD ORDERABLES Roshni schneider Result HISTORICAL RESULTS * Serum progesterone (01/28/2013 2:53 PM RECEPTIONIST SCHEDULER) Progesterone <1.0 ng/ml HISTORI TYRESE RESULTS Comment: Progesterone Reference Ranges: Female ?? <10 years ?<0.9 ng/ml ?? Mid-Follicular ? <1.6 ng/ml ?? Mid-Luteal ? 5.0 - 18.6 ng/ml ?? Post Menopausal ? <0.8 ng/ml Female ?? 1st Trimester ? 4.7 ??- 50.7 ?ng/ml ?? 2nd Trimester ?? 19.4 - 45.3 ?ng/ml Male ?<0.9 ng/ml Serum 01/28/2013 2:53 PM RECEPTIONIST SCHEDULER Mari [place] NP LAB BLOOD ORDERABLES Roshni l Result Performing Organization Address City/State/[facility] Co de Phone Number HISTORICAL RESULTS * Serum testosterone fraction (01/28/2013 8:53 AM RECEPTIONIST SCHEDULER) [facility] [address] Testosterone 33 8 - 60 ng/dl HISTORICAL RESULTS Comment: Testing performed by Liquid Chromatography-Tandem Mass Spectrometry (LC-MS/MS). Testosterone, free 0.8 0.3 - 1.9 ng/dl HISTORICAL RESULTS Comment:Testing performed by [facility]. Serum 01/28/2013 8:53 AM RECEPTIONIST SCHEDULER Narrative HISTORICAL RESULTS - 02/02/2013 3:50 PM RECEPTIONIST SCHEDULER Test performed at [facility] Dept of Lab Medicine and Pathology, [address] [place] [address], [place], [address]. Mari [place] NP LAB BLOOD ORDERABLES Roshni l Result HISTORICAL RESULTS * DISCHARGE LABORATORY CUMULATIVE REPORT (01/28/2013) Narrative 01/28/2013 Ordered by an unspecified provider. Historical Provider LAB BLOOD ORDERABLES Roshni l Result documented in this encounter Visit Diagnoses Diagnosis Symptomatic menopausal or female climacteric states documented in this encounter Care Teams General Service Officer Relationship Specialty Start Date End Date Ronald Castrejon MD PCP - General 01/18/13 03/30/13 documented as of this encounter
--- OUTSIDE RECORDS SUMMARY | 2024-04-11 06:41 | XMS_ITS | Encounter Summary ---
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 Name Role Phone Ryan Castrejon MD Primary Care Provider [phone] Encounter Details Date Type Department Care Team (Late st Contact Info) Description 09/29/2013 3:13 AM CDT - 10/01/2013 9:53 AM CDT Hospital Encounter [facility] Emery Skelton MD [address] [place] [address] [address] Essential hypertension; Abnormal levels of other serum enzymes; Acute sinusitis; Abdominal pain, epigastric; Esophageal reflux; Other and unspecified hyperlipidemia; Coronary atherosclerosis; Personal history of allergy to penicillin; Personal history of allergy to narcotic agent; History of allergy to other specified medicinal agents Social History Tobacco Use Types Packs/Day Years Used Date Smoking Tobacco: Former Cigarettes Q uit: 03/24/1969 Alcohol Use Standard Drinks/Week Comments No 0 (1 standard drink = 0.6 oz pur e alcohol) Comments Unknown Sex and Gender Information Value Date Recorded Sex Assigned at Not on file 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 Gender Identity Female 10/09/2022 9:08 AM CDT Sexual Orientation Choose not to disclose 2022 9:08 AM CDT documented as of this encounter Last Filed Vital Signs Vital Sign Reading Time Taken Comments Blood Pressure 142/65 10/01/2013 7:26 AM CDT Pulse 48 10/01/2013 8:35 AM CDT Temperature - - Respiratory Rate - - Oxygen Saturation - - Inhaled Oxygen Concentration - - Weight 82.4 kg (181 lb 10.5 oz) 014 11:13 AM CDT Height 154.9 cm (5' 0.98 ) 09/30/2013 1 1:13 AM CDT Body Mass Index 34.34 09/30/2013 11:13 AM CDT documented in this encounter Discharge Summaries * Provider, MD Rosalinda - 10/01/2013 12:00 AM CDT DISCHARGE SUMMARY - [facility] Patient: ABENA GIRON Account: [id number] Room No: 2610-01 : 1940 Patient Type: [facility] Attend.: Emery Collazo M.D. Admit Date: 09/29/2013 Dict.: Winnie Moreno M.D. Disch. Date: 10/01/2013 PRIMARY CARE PHYSICIAN: Ryan Castrejon M.D. DISCHARGE DIAGNOSES: 1. Hypertensive urgency. 2. Elevated troponin. 3. Acute sinusitis. 4. Gastroesophageal reflux disease. 5. Significant anxiety. HISTORY OF PRESENT ILLNESS: This is a 73-year-old white female, presented to the hospital because of feeling poorly over the past three days with cough, sinus pain, postnasal drainage, facial pain and congestion and palpitations on and off as well as chest pain between the shoulder blades. The patient has underlying hypertension, coronary disease and recent medicated stent in June of this year. She was fine until a week prior to coming to the hospital. She has a history of previous sinus infections, but states this is particularly bad. She has had Z-Pack as an outpatient and had failed that. Because of continued symptoms, she presented to the ER. HOSPITAL COURSE: 1. Hypertensive urgency. The patient presented with nausea, headache and visual changes in the ER. Her blood pressure was 229/104. She was continued on her Diovan; however, due to multiple medication intolerances, additional medications were difficult. She stated she was unable to take beta-blockers and KENJI inhibitors. She also stated that she was unable to take calcium channel blockers and is specifically allergic to Norvasc. She did receive several doses of IV hydralazine with improvement in her blood pressure. She was subsequently seen by Dr. Holland of cardiology who convinced the patient to try very low dose of Coreg as well as a lower dose of Diovan on a q.12 hours basis. The patient did well with this regimen and her blood pressure remained well controlled with no further symptoms. 2. Elevated troponin. At the time of admission, the patient's troponin was slightly elevated at 0.14. It was thought that this was most likely due to a troponin leak, secondary to hypertensive crisis. The patient, again, was seen by Dr. Holland with her known coronary artery disease, hyperlipidemia and hypertension. Further evaluation was not done. Serial troponins remained normal and the patient did well. She did have a chest x-ray that showed no active pulmonary disease. EKG showed a sinus bradycardia with low QRS voltage in the precordial leads, but no acute ischemia and no change from previous. As mentioned, repeated troponins were normal and further evaluation was not done. The patient had no further chest discomfort following control of her blood pressure. 3. Acute sinusitis. The patient had been on Z-pack and as a result, was switch to Avelox. She did well with marked improvement in her symptoms. At the time of discharge, the patient was given Levaquin 500 mg daily for five additional days. 4. Epigastric pain. The patient has continued on PPI therapy without further difficulty. 5. Profound anxiety. A long discussion was held with the patient regarding the need for treatment for her anxiety. She has many social issues going on at this time and this in combination with her concern regarding medication allergies appear to heighten her anxiety and subsequently heighted her blood pressure. She had taken Tranxene in the past and this was restarted at a very low dose one time a day with marked improvement in her symptoms. At the time of discharge, the patient stated she was feeling better than she had felt in some time. She was continued on Tranxene daily and was asked to followup with Dr. Castrejon for further management of her anxiety. On 10/01, she was believed stable enough for discharge and indeed was discharged to home. OPERATIONS AND PROCEDURES: Performed during this hospital stay included the above mentioned chest x-ray, EKG and lab work. At the time of discharge, the patient's BMP included a BUN of 50, sodium 140, potassium 4.1, chloride 106, CO2 29, glucose 119, creatinine of 1.14. CONSULTANTS: Included Dr. Guanakito Holland of cardiology. DISCHARGE INSTRUCTIONS: 1. Condition stable. 2. Code status 1. 3. Physical exam found the patient's lungs were clear. Cardiac exam - revealed a regular rate and rhythm, normal S1, S2 without any murmurs, S3 or S4 heard. Abdomen - soft, nontender, nondistended with positive bowel sounds. There are no masses, hernias, bruits, organomegaly, rebound or guarding. Extremities/bones/joints - revealed the absence of any edema, cyanosis or clubbing. There was no calf tenderness. Her blood pressure was 128/72 by me. 4. Diet was to be a low salt diet. 5. Activity as tolerated 6. Destination to home with family. 7. Medications included aspirin 81 mg a day, calcium 500 mg daily, Coreg mg q.12 hours. Zyrtec 10 mg a day, vitamin D3 daily, Plavix 75 mg a day, Tranxene 3.75 mg daily, folic acid 1 mg daily, garlic daily, Diovan 80 mg q.12 hours, vitamin B complex 1 daily, Tylenol as needed for pain and Levaquin 500 mg daily for five additional days. 8. Medications changes included the change of Diovan to 80 mg b.i.d. and the addition of Coreg 1.6125 b.i.d. in addition to adding Tranxene 3.75 daily and Levaquin for five additional days for sinusitis. 9. Follow up appointment to be with Dr. Castrejon in 7-10 days' time and [facility] in three to four weeks' time. 10. Pending labs and tests at the time of this dictation, none. 11. Time spent preparing this dictation, discussing with the patient, writing appropriate prescriptions, 45 minutes. Winnie Moreno M.D. ALIYAH/terri TD: 10/02/2013 05:09 CC: Ryan Castrejon M.D. Authenticated and Edited by Winnie Moreno MD On 10/02/13 7:08:16 AM documented in this encounter H&P Notes * ProviderRosalinda MD - 09/29/2013 12:00 AM CDT HISTORY AND PHYSICAL Patient: ABENA GIRON Account: [id number] Room No: 2610-01 : 1940 Patient [facility] Attend.: Emery Collazo M.D. Admit Date: 09/29/2013 Dict.: Emery Collazo M.D. Disch. Date: CHIEF COMPLAINT This is a 73-year-old female, presented to the hospital because of not feeling well over the last three days, cough, sinus pain, postnasal drainage, facial pain and congestion, and palpitations on and off and chest pain between his shoulder blades. HISTORY OF PRESENT ILLNESS The patient has underlying hypertension, coronary disease, recent medicated stent in June of this year. She was fine up until a week before coming to the hospital. She started getting sinus infections. She was prescribed Z-Pack and she took it but failed the treatment. She continued to have the cough, sinus pressure and congestion, and also these intermittent palpitations and extra beats that she is feeling in her heart. So she came to the hospital for evaluation. REVIEW OF SYSTEMS Negative for fever, but she was having chills yesterday. Respiratory: Denies any shortness of breath, but she has dry cough. Cardiovascular: Denies chest pain but has palpitations. Her pain is in her posterior chest in between shoulder blades, intensity of 4 out of 10, sharp, intermittent. No positional changes. No radiation. Lasts about a few minutes. Started yesterday. GI: Positive for epigastric cramps and pain, started a couple of days ago, related to food. Starts about 15 minutes after she eats. No radiation. Denies any diarrhea, but she had diarrhea about a week or 10 days ago. : Denies dysuria. Musculoskeletal: Denies significant pains. Endocrine: Denies changes. Constitutionally, no weight loss, weight gain recently. Neurologically, denies any focal weakness, paresthesias, but has headache and generalized fatigue. PAST MEDICAL HISTORY 1. Hypertension. 2. Coronary artery disease. 3. Status post drug-eluting stent in June 2013. 4. Anxiety. 5. GERD. 6. Dyslipidemia. SOCIAL HISTORY Lives alone. Denies smoking or alcohol intake. FAMILY HISTORY Negative for significant diseases and noncontributory. ALLERGIES Beta blockers, codeine, calcium channel blockers, morphine, penicillins. HOME MEDICATIONS 1. Daily garlic. 2. Enteric-coated aspirin 81 mg daily. 3. Oyster shell one tablet daily. 4. Plavix 75 mg daily. 5. Vitamin D3 daily. 6. Diovan 160 mg daily. 7. Zyrtec 10 mg daily. 8. Acetaminophen 650 mg every 4 hours as needed. 9. Folic acid one tablet daily. 10. Vitamin B1, B6 complex daily. PHYSICAL EXAMINATION Vital signs: Blood pressure 185/95, pulse 55, respirations 18, temperature 36.3, oxygen saturation 98% on room air. HEENT: No pallor, icterus, petechiae. Mucous membranes are moist. Neck: Supple, no JVD, no lymphadenopathy or thyromegaly. Chest: S1 and S2, regular. No murmurs or gallops. Lungs are clear to auscultation bilaterally. Abdomen: Soft, nontender, bowel sounds positive. Extremities: No edema. Pulses are present. Neurologic exam: Nonfocal. ASSESSMENT AND PLAN 1. Hypertensive urgency. Patient also symptomatic, having nausea and some headache without vision changes. She presented to the hospital emergency room with blood pressure 229/104. We gave her one Diovan when she came down, 160 mg, and her blood pressure is down to 185/95. I cannot start any beta blockers, KENJI inhibitors. She is allergic to lisinopril also, she told me, or any calcium channel blockers. Also, she is allergic to Norvasc. She tried all these medications, and she gets sick from these medicines. Cannot give her anything but hydralazine, so I ordered hydralazine IV. She is refusing to take the medicine because she thinks she is going to get allergy. So we will watch her blood pressure again. Ideally, we do not want her blood pressure to drop too fast anyway, and her blood pressure is coming down nicely so will repeat her blood pressure again pretty soon, make sure it is coming down. Then continue just her Diovan. 2. Elevated troponin, 0.14. Second set is normal, 0.1. This is likely troponin leak secondary to hypertensive urgency. The patient states, though, that she is having shoulder blade pain. This could be radiated pain coming from the heart. Dr. Holland is consulted. She does have a stent placed in June, so she had coronary disease, hyperlipidemia, and uncontrolled hypertension, multiple risk factors for coronary disease. So we will see what Dr. Holland thinks about this mild elevation. 3. Acute sinusitis. The patient failed outpatient antibiotic treatment with Zithromax. I am changing the Zithromax to moxifloxacin. Will see how she tolerates this. She cannot have any penicillins or ampicillins, and also she does not want to try cephalosporins after the explanation of cross reactivity, so we will do moxifloxacin. Hopefully this will work. She has tenderness over her maxillary sinuses. 4. Epigastric pain. The patient has history of GERD. This is a pain starting 15 minutes after food. She may have gastritis also. Her last EGD was in March, according to her, not in this hospital. I am giving her Protonix, to continue Protonix upon discharge and see her GI physician for another EGD. 5. The patient is admitted as an outpatient. ADMISSION DIAGNOSES 1. Hypertensive urgency. 2. Elevated troponins. 3. Acute sinusitis. 4. Epigastric pain. ESTIMATED LENGTH OF STAY Less than two midnights. Emery Collazo M.D. JAKI/smiley TD: 09/29/2013 14:42 Authenticated by Emery Collazo MD On 10/12/2013 08:26:04 AM documented in this encounter Consult Notes * ProviderRosalinda MD - 09/29/2013 12:00 AM CDT CONSULTATION REPORT Patient: ABENA GIRON Account: [id number] Room No: 2610-01 : 1940 Patient Type: SDS Attend.: Emery Collazo M.D. Admit Date: 09/29/2013 Consult: Guanakito Holland M.D. F.A.C.C. Disch. Date: CARDIOLOGY CONSULTATION DATE: 09/29/2013 REASON FOR CONSULTATION: Elevated troponin with markedly elevated blood pressure. HISTORY OF PRESENT ILLNESS: The patient is a pleasant female who came in not feeling well for several days. She has described basically sinus congestion, facial pain, nausea and vomiting, no energy, feeling tired and drained and also a cough initially productive of green phlegm. She has felt warm but she has not had any fever that she knows of. There have been several episodes of jerky movements in the chest which sound like palpitations. However, there has not been any typical angina or typical shortness of breath with exertion. Cardiac-mcneal remarkable for coronary artery disease manifested by a non-ST segment elevation [place] in June 2013. A drug-eluting stent was placed to the circumflex by me on 06/28/2013. She says she has been taking her aspirin and antiplatelet agent faithfully. Her troponins are slightly elevated at 0.14 and 0.10, but her blood pressure was also over 200 when she came in. Blood pressure has come down to 185/95 and she is feeling a little bit better now. She readily admits to being under a lot of stress lately from her divorce. This has been an ongoing problem for several months. PAST MEDICAL HISTORY: 1. Hypertension, difficult to control because she cannot tolerate beta blockers and calcium blockers. They apparently caused her some chest pain. 2. Anxiety/panic disorder. 3. Gastroesophageal reflux disease. 4. Coronary artery disease. 5. Dyslipidemia. PHYSICAL EXAMINATION: Blood pressure 185/95, pulse 55 and regular, and the patient is afebrile. General: She is a moderately overweight female with light hair. She has large rings in both earlobes. She denies any chest pain. There is no chest wall tenderness to palpation. Lungs: Good and equal airway exchange bilaterally. Clear to auscultation bilaterally. Heart: Regular without any murmurs, gallops, or rubs. Extremities: No pedal edema. No focal weakness. EKG: Sinus bradycardia at 53 beats per minute with leftward axis. No acute changes. ASSESSMENT AND PLAN: This is a pleasant female with mildly elevated troponin, likely not due to acute coronary syndrome. It is likely due to markedly elevated blood pressure. This can be controlled by her primary care doctor. From a heart standpoint, we have not seen anything arrhythmic. A recent echo a few months ago showed good LV function with only mild mitral regurgitation. There is no evidence of stent thrombosis by EKG or by chest discomfort. Would follow up with Dr. Mendoza as already indicated in a few weeks. In regard to the blood pressure medicine, I was able to convince her to take a very small dose of Coreg at 3.125 mg p.o. b.i.d. Hopefully, she will not have any chest discomfort from this low dose of Coreg. Guanakito Holland M.D. F.A.C.C. RGL/ms TD: 09/29/2013 18:00 CC: Sisi Valera M.D. F.A.C.C. [facility] [address] [place] [address], [id number] [place] [address] Authenticated and Edited by Guanakito Holland MD On 09/30/13 9:54:22 AM documented in this encounter Plan of Treatment Not on file documented as of this encounter Procedures Procedure Name Priority Date/Time Associated Diagnosis Comments SERUM BASIC METABOLIC PANEL Routine 10/01/2013 4:11 AM CDT DISCHARGE LABORATORY CUMULATIVE REPORT Routine 10/01/2013 12:00 AM CDT SERUM BASIC METABOLIC PANEL Routine 09/30/2013 3:18 AM CDT BLOOD WBC CELL MORPHOLOGIC EXAM, AUTO Routine 09/30/2013 3:18 AM CDT BLOOD CELL COUNT (CBC) Routine 4 3:18 AM CDT ELECTROCARDIOGRAPHY (ECG) 09/30/2013 SERUM TROPONIN I Routine 09/29/2013 12:3 5 PM CDT SERUM TROPONIN I Routine 09/29/2013 6:03 AM CDT SERUM MAGNESIUM Routine 09/29/2013 4:58 AM CDT SERUM COMPREHENSIVE METABOLIC PANEL Routine 09/29/2013 4:58 AM CDT PLASMA PROTHROMBIN TIME (PT) Routine 09/29/2013 4:58 AM CDT PLASMA PARTIAL THROMBOPLASTIN TIME (PTT) Routine 09/29/2013 4:58 AM CDT BLOOD WBC CELL MORPHOLOGIC EXAM, AUTO Routine 09/29/2013 4:58 AM CDT BLOOD CELL COUNT (CBC) Routine 4 4:58 AM CDT XR CHEST PORTABLE Routine 09/29/2013 4:3 4 AM CDT ELECTROCARDIOGRAPHY (ECG) 09/29/2013 MICROBIOLOGY SUMMARY Routine 09/29/2013 12:00 AM CDT SERUM TROPONIN I Routine 09/28/2013 11:5 8 PM CDT BLOOD B-TYPE NATRIURETIC PEPTIDE (BNP) Routine 09/28/2013 11:58 PM CDT documented in this encounter Results * (ABNORMAL) Serum basic metabolic panel (10/01/2013 4:11 AM CDT) Pathologist [facility] BUN 15.0 6.0 - 23.0 mg/dl HISTORICAL RESULTS Sodium 140 134 - 143 mmol/L HISTORICAL RESULTS Potassium, sr 4.1 3.4 - 5.0 mmol/L HISTORICAL RESULTS Chloride 106 99 - 108 mmol/L HISTORICAL RESULTS CO2 29 23 - 32 mmol/L HISTORICAL RESULTS Glucose 119 70 - 199 mg/dl HISTORICAL RESULTS Comment: [...] glucose. New reference ranges implemented 02/01/2013. Creatinine 1.14 0.60 - 1.30 mg/dl HISTORICAL RESULTS BUN/creat ratio 13 10 - 20 HIST ORICAL RESULTS A. gap 9 7 - 14 mmol/L HISTORICAL RESULTS Osmo, calc 281 280 - 301 mOsm/kg HISTORICAL RESULTS Calcium 8.5(L) 8.6 - 9.8 mg/dl HISTORICAL RESULTS Serum 10/01/2013 4:11 AM CDT us Cassi Moreno MD LAB BLOOD ORDERABLES Fin al Result HISTORICAL RESULTS * Discharge Laboratory Cumulative Report (10/01/2013 12:00 AM CDT) 10/01/2013 Narrative HISTORICAL RESULTS - 10/02/2013 3:00 AM CDT Patient No: [id number] ? [facility] Patient Name: ABENA GIRON ? [facility] Healthcare Age: 73 YRS ?: 1940 ?Sex:F ?[address] )[phone] ?? Adm Dt: 09/29/2013 ?[place] ??[id number] Created: 10/02/2013 ??0300 ?? Pt. Type: B ? Discharge Dt: 10/01/2013 ? Pathologists: Rachel Bell MD Admit Attend Dr: EMERY COLLAZO MD ? BLOOD CELL COUNTS ?Collection Date: ?09/30/13 ? 09/29/13 ?Collection Time: ?0318 ? 0458 ? Ref Range: ?? Units: [4.00-10.50] /CMM ? WBC X 10^3 ?7.68 ? 7.26 [4.20-5.40] ??/CMM ? RBC X 10^6 ?4.27 ? 4.53 [12.0-16.0] ??G/DL ? HGB ? 13.0 ? 13.9 [37.0-47.0] ??% ?HCT ? 38.6 ? 40.6 [77.0-97.0] ??FL ? MCV ? 90.4 ? 89.6 [23.0-34.0] ??PG ? MCH ? 30.4 ? 30.7 [32.0-36.0] ??% ?MCHC ?33.7 ? 34.2 [11.5-14.5] ??% ?RDW ? 12.3 ? 12.2 [150-400] ?? /CMM ? PLT X 10^3 ? 200 ?187 ?BLOOD CELL DIFFERENTIAL ?Collection Date: ?09/30/13 ? 09/29/13 ?Collection Time: ?0318 ? 0458 ? Ref Range: ?? Units: [54.0-69.0] ??% ?NEUTROPHILS ? 47.5 L ? 56.9 [25.0-33.0] ??% ?LYMPHOCYTES ? 40.6 H ? 28.8 [0.0-13.0] ??% ?MONOCYTES ?8.6 ? 11.4 [0.0-10.0] ??% ?EOSINOPHILS ?2.6 ?2.2 [0.0-1.0] ?? % ?BASOPHILS ?0.4 ?0.6 ? /CMM ? A LYMPHOCYTE ? 3.1 ?2.1 [0.0-1.0] ?? % ?IMM GRAN % ? 0.3 ?0.1 [0.00-0.02] ??/CMM ? A IMM GRAN ?0.02 ? 0.01 [1.1-1.9] ?? /CMM ? A MONOCYTE ? 0.7 L ?0.8 L [1.4-6.5] ?? /CMM ? A NEUTROPHIL ? 3.7 ?4.1 [0.0-0.7] ?? /CMM ? A EOSINOPHIL ? 0.2 ?0.2 [0.0-0.2] ?? /CMM ? A BASOPHIL ? 0.0 ?0.0 Footnotes and Symbols: L = Low, H = High ?? CONTINUED ?Page: ?? 1 Patient No: [id number] ? [facility] Patient Name: ABENA GIRON ? [facility] Age: 73 YRS ?: 1940 ?Sex:F ?[address] )[phone] ?? Adm Dt: 09/29/2013 ?[place], [place] ??[address] Created: 10/02/2013 ??0300 ?? Pt. Type: B ? Discharge Dt: 10/01/2013 ? Pathologists: Rachel Bell MD Admit Attend Dr: EMERY COLLAZO MD ? GENERAL CHEMISTRY ?Collection Date: ?10/01/13 ? 09/30/13 ?Collection Time: ?0411 ? 0318 ? Ref Range: ?? Units: [134-143] ?? MMOL/L ? SODIUM ? 140 ?139 [3.4-5.0] ?? MMOL/L ? POTASSIUM ?4.1 ?3.9 [99.0-108.0] MMOL/L ? CHLORIDE ? 106.0 ?104.0 [23.0-32.0] ??MMOL/L ? TOTAL CO2 ? 29.4 ? 27.6 ?? [7-14] ?MMOL/L ? ANION GAP ?9 ? 11 ??[70-199] ?? MG/DL ?GLUCOSE ?119 f ?104 f [280-301] ?? MOSM/K ? CALCULATED OSMO ?281 ?278 L [8.6-9.8] ?? MG/DL ?CALCIUM ?8.5 L ?8.4 L [6.0-23.0] ??MG/DL ?BUN ? 15.0 ? 12.0 ??[10-20] ? B/C RATIO ? 13 ? 11 [0.60-1.30] ??MG/DL ?CREATININE ?1.14 ? 1.08 Footnotes and Symbols: L = Low, f [...] ?? CONTINUED ?Page: ?? 2 Patient No: [id number] ? [facility] Patient Name: ABENA GIRON ? [facility] Healthcare Age: 73 YRS ?: 1940 ?Sex:F ?[address] )[phone] ?? Adm Dt: 09/29/2013 ?[place], [place] ??[address] Created: 10/02/2013 ??0300 ?? Pt. Type: B ? Discharge Dt: 10/01/2013 ? Pathologists: Rachel Bell MD Admit Attend Dr: EMERY COLLAZO MD ? GENERAL CHEMISTRY ?Collection Date: ?09/29/13 ?Collection Time: ?0458 ? Ref Range: ?? Units: [< ?100] ?? pg/ml ?BNP ? 73 f [134-143] ?? MMOL/L ? SODIUM ? 140 [3.4-5.0] ?? MMOL/L ? POTASSIUM ?3.9 [99.0-108.0] MMOL/L ? CHLORIDE ? 105.0 [23.0-32.0] ??MMOL/L ? TOTAL CO2 ? 27.4 ?? [7-14] ?MMOL/L ? ANION GAP ? 12 ??[70-199] ?? MG/DL ?GLUCOSE ?131 f [6.4-8.0] ?? G/DL ? TOTAL PROTEIN ?7.2 [3.3-4.5] ?? G/DL ? ALBUMIN ?3.6 [1.1-1.8] ?A/G RATIO ?1.0 L [8.6-9.8] ?? MG/DL ?CALCIUM ?9.2 [0.0-1.1] ?? MG/DL ?BILI TOTAL ? 0.4 ??[44-125] ?? U/L ?ALK PHOS ?67 ?? [5-40] ?U/L ?AST(SGOT) ? 20 f ??[15-70] ?U/L ?ALT(SGPT) ? 27 f [6.0-23.0] ??MG/DL ?BUN ? 13.0 ??[10-20] ? B/C RATIO ? 15 Footnotes and Symbols: L = Low, f = Footnote BNP (01/01/08 -- Current) [...] ?? CONTINUED ?Page: ?? 3 Patient No: [id number] ? [facility] Patient Name: ABENA GIRON ? [facility] Age: 73 YRS ?: 1940 ?Sex:F ?[address] )[phone] ?? Adm Dt: 09/29/2013 ?[place], [place] ??[address] Created: 10/02/2013 ??0300 ?? Pt. Type: B ? Discharge Dt: 10/01/2013 ? Pathologists: Rachel Bell MD Admit Attend Dr: EMERY COLLAZO MD ? GENERAL CHEMISTRY ?Collection Date: ?09/29/13 ?Collection Time: ?0458 ? Ref Range: ?? Units: [0.60-1.30] ??MG/DL ?CREATININE ?0.87 [1.5-2.2] ?? MG/DL ?MAGNESIUM ?1.9 ? CARDIAC CHEMISTRY ?Collection Date: ?09/29/13 ? 09/29/13 ?Collection Time: ?1735 ? 1103 ? Ref Range: ?? Units: [0.00-0.10] ??NG/ML ?TROPONIN I ?0.16 Hf ?0.10 f ?Collection Date: ?09/29/13 ?Collection Time: ?0458 ? Ref Range: ?? Units: [0.00-0.10] ??NG/ML ?TROPONIN I ?0.14 Hf Footnotes and Symbols: H = High, f = Footnote TROPONIN I (01/17/11 -- Current) NEGATIVE: ??0.00 - 0.10 NG/ML INDETERMINATE: ??0.11 - 0.50 NG/ML POSITIVE: ??GREATER THAN 0.50 NG/ML ?? CONTINUED ?Page: ?? 4 Patient No: [id number] ? [facility] Patient Name: ABENA GIRON ? [facility] Age: 73 YRS ?: 1940 ?Sex:F ?[address] )[phone] ?? Adm Dt: 09/29/2013 ?[place], [place] ??[address] Created: 10/02/2013 ??0300 ?? Pt. Type: B ? Discharge Dt: 10/01/2013 ? Pathologists: Rachel Bell MD Admit Attend Dr: EMERY COLLAZO MD ?COAGULATION ? Units: ?? PROTIME ?INR ?APTT PAT ? Low: ??[10.9-14.8] ? [< ?? 36.0] ? Ref Range: ? SECS ?SECS ? 07/14 0458 ?12.4 ? 0.96 f ? 27.4 ? MICRO - MISCELLANEOUS STAPHYLOCOCCUS SCREEN ? Collected: 09/29/13 0728 ? Received: 09/29/13 0740 Source: NOSE ?Started: 09/29/1309 ?FOR MRSA ? FINAL REPORT ?09/30/13 0554 ? NO METHICILLIN RESISTANT STAPH AUREUS CULTURED Footnotes and Symbols: f = Footnote INR [...] ORDERABLES Roshni schneider Result HISTORICAL RESULTS * (ABNORMAL) Serum basic metabolic panel (09/30/2013 3:18 AM CDT) [facility] BUN 12.0 6.0 - 23.0 mg/dl HISTORICAL RESULTS Glucose 104 70 - 199 mg/dl HISTORICAL RESULTS Comment: Note:The glucose is assumed non fasting Fastin-99 mg/dl Random: 70-199 mg/dl Either a fasting glucose > 126 mg/dL or a random glucose > 200 mg/dL plus symptoms is diagnostic of diabetes when confirmed on another day. Fasting values > 100 mg/dl but < 125 mg/dL are diagnostic of impaired fasting glucose. New reference ranges implemented 02/01/2013. Sodium 139 134 - 143 mmol/L HISTORICAL RESULTS Creatinine 1.08 0.60 - 1.30 mg/dl HISTORICAL RESULTS Potassium, sr 3.9 3.4 - 5.0 mmol/L HISTORICAL RESULTS BUN/creat ratio 11 10 - 20 HIST ORICAL RESULTS Chloride 104 99 - 108 mmol/L HISTORICAL RESULTS A. gap 11 7 - 14 mmol/L HISTORICAL RESULTS CO2 28 23 - 32 mmol/L HISTORICAL RESULTS Osmo, calc 278(L) 280 - 301 mOsm/kg HISTORICAL RESULTS Calcium 8.4(L) 8.6 - 9.8 mg/dl HISTORICAL RESULTS Serum 09/30/2013 3:18 AM CDT Rosario Beltrán MD LAB BLOOD ORDERABLE S Final Result Performing Organization Address [place]/[facility] de Phone Number HISTORICAL RESULTS * Blood cell count (CBC) (09/30/2013 3:18 AM CDT) WBC 7.7 4.0 - 10.5 K/cumm HISTORICAL RESULTS RBC 4.27 4.20 - 5.40 M/cumm HISTORICAL RESULTS Hgb 13.0 12.0 - 16.0 g/dl HISTORICAL RESULTS Hct 38.6 37.0 - 47.0 % HISTORICAL RESULTS MCV 90.4 77.0 - 97.0 fl HISTORICAL RESULTS MCH 30.4 23.0 - 34.0 pg HISTORICAL RESULTS MCHC 33.7 32.0 - 36.0 g/dl HISTORICAL RESULTS Rdw 12.3 11.5 - 14.5 % HISTORICAL RESULTS Platelets 200 150 - 400 K/cumm HISTORICAL RESULTS MPV 10.3 7.4 - 10.4 fl HISTORICAL RESULTS Blood specimen (specimen) 09/30/2013 3:18 AM CDT Rosario Beltrán MD LAB BLOOD ORDERABLE S Final Result Performing Organization Address [place] de Phone Number HISTORICAL RESULTS * (ABNORMAL) Blood WBC cell morphologic exam, auto (09/30/2013 3:18 AM CDT) Lymphocytes 40.6(H) 25.0 - 33.0 % HISTORICAL RESULTS Monos 8.6 0.0 - 13.0 % HISTORICAL RESULTS Neutrophils 47.5(L) 54.0 - 69.0 % HISTORICAL RESULTS Eosinophils 2.6 0.0 - 10.0 % HISTORICAL RESULTS Basophils 0.4 0.0 - 1.0 % HISTORICAL RESULTS Immature granulocytes 0.3 0.0 - 1.0 % HISTORICAL RESULTS Lymphocytes, abs 3.1 1.2 - 3.4 K/cumm HISTORICAL RESULTS Monocytes, absolute 0.7(L) 1.1 - 1.9 K/cumm HISTORICAL RESULTS Neutrophils, abs 3.7 1.4 - 6.5 K/cumm HISTORICAL RESULTS Eosinophils, abs 0.2 0.0 - 0.7 cells/cum m HISTORICAL RESULTS Basophils, abs 0.0 0.0 - 0.2 K/cumm HISTORICAL RESULTS Immature granulocyte, abs 0.0 0.0 - 0.0 K/cumm HISTORICAL RESULTS Blood specimen (specimen) 09/30/2013 3:18 AM CDT Rosario Beltrán MD LAB BLOOD ORDERABLE S Final Result Performing Organization Address City/State/[facility] Co de Phone Number HISTORICAL RESULTS * ELECTROCARDIOGRAPHY (ECG) (09/30/2013) Narrative 09/30/2013 Ordered by an unspecified provider. [facility] Provider MD ECG ORDERABLES Final Res ult * (ABNORMAL) Serum troponin I (09/29/2013 12:35 PM CDT) Troponin I 0.16(H) 0.00 - 0.10 ng/ml HISTORICAL RESULTS Serum 09/29/2013 12:3 5 PM CDT Narrative HISTORICAL RESULTS - 09/29/2013 1:30 PM CDT NEGATIVE: ??0.00 - 0.10 NG/ML INDETERMINATE: ??0.11 - 0.50 NG/ML POSITIVE: ??GREATER THAN 0.50 NG/ML Rosario Beltrán MD LAB BLOOD ORDERABLE S Final Result HISTORICAL RESULTS * Serum troponin I (09/29/2013 6:03 AM CDT) Troponin I 0.10 0.00 - 0.10 ng/ml HISTORICAL RESULTS Serum 09/29/2013 6:03 AM CDT Narrative HISTORICAL RESULTS - 09/29/2013 6:58 AM CDT NEGATIVE: ??0.00 - 0.10 NG/ML INDETERMINATE: ??0.11 - 0.50 NG/ML POSITIVE: ??GREATER THAN 0.50 NG/ML Rosario Beltrán MD LAB BLOOD ORDERABLE S Final Result Performing Organization Address [place]/[facility] Co de Phone Number HISTORICAL RESULTS * Plasma partial thromboplastin time (PTT) (09/29/2013 4:58 AM CDT) APTT 27.4 -<36. seconds HISTOR ICAL RESULTS Plasma 09/29/2013 4:58 AM CDT us Carson Power MD LAB BLOOD ORDERABLES Final Result Performing Organization Address [place] de Phone Number HISTORICAL RESULTS * Plasma prothrombin time (PT) (09/29/2013 4:58 AM CDT) Prothrombin time (PT) 12.4 10.9 - 14.8 seconds HISTORICAL RESULTS INR 0.96 HISTORICAL RESULTS Comment: RECOMMENDED RANGES FOR PROTIME [...] with Food and Drug Administration recommendations. Plasma 09/29/2013 4:58 AM CDT Carson Power MD LAB BLOOD ORDERABLES Final Result Performing Organization Address [place] de Phone Number HISTORICAL RESULTS * Serum magnesium (09/29/2013 4:58 AM CDT) Magnesium 1.9 1.5 - 2.2 mg/dl HISTORICAL RESULTS Serum 09/29/2013 4:58 AM CDT Carson Power MD LAB BLOOD ORDERABLES Final Result Performing Organization Address [place] de Phone Number HISTORICAL RESULTS * Blood cell count (CBC) (09/29/2013 4:58 AM CDT) WBC 7.3 4.0 - 10.5 K/cumm HISTORICAL RESULTS RBC 4.53 4.20 - 5.40 M/cumm HISTORICAL RESULTS Hgb 13.9 12.0 - 16.0 g/dl HISTORICAL RESULTS Hct 40.6 37.0 - 47.0 % HISTORICAL RESULTS MCV 89.6 77.0 - 97.0 fl HISTORICAL RESULTS MCH 30.7 23.0 - 34.0 pg HISTORICAL RESULTS MCHC 34.2 32.0 - 36.0 g/dl HISTORICAL RESULTS Rdw 12.2 11.5 - 14.5 % HISTORICAL RESULTS Platelets 187 150 - 400 K/cumm HISTORICAL RESULTS MPV 9.9 7.4 - 10.4 fl HISTORICAL RESULTS Blood specimen (specimen) 09/29/2013 4:58 AM CDT Carson Power MD LAB BLOOD ORDERABLES Final Result Performing Organization Address [place] de Phone Number HISTORICAL RESULTS * (ABNORMAL) Blood WBC cell morphologic exam, auto (09/29/2013 4:58 AM CDT) Lymphocytes 28.8 25.0 - 33.0 % HISTORICAL RESULTS Monos 11.4 0.0 - 13.0 % HISTORICAL RESULTS Neutrophils 56.9 54.0 - 69.0 % HISTORICAL RESULTS Eosinophils 2.2 0.0 - 10.0 % HISTORICAL RESULTS Basophils 0.6 0.0 - 1.0 % HISTORICAL RESULTS Immature granulocytes 0.1 0.0 - 1.0 % HISTORICAL RESULTS Lymphocytes, abs 2.1 1.2 - 3.4 K/cumm HISTORICAL RESULTS Monocytes, absolute 0.8(L) 1.1 - 1.9 K/cumm HISTORICAL RESULTS Neutrophils, abs 4.1 1.4 - 6.5 K/cumm HISTORICAL RESULTS Eosinophils, abs 0.2 0.0 - 0.7 cells/cumm HISTORICAL RESULTS Basophils, abs 0.0 0.0 - 0.2 K/cumm HISTORICAL RESULTS Immature granulocyte, abs 0.0 0.0 - 0.0 K/cumm HISTORICAL RESULTS Blood specimen (specimen) 09/29/2013 4:58 AM CDT Carson Power MD LAB BLOOD ORDERABLES Final Result HISTORICAL RESULTS * (ABNORMAL) Serum comprehensive metabolic panel (09/29/2013 4:58 AM CDT) BUN 13.0 6.0 - 23.0 mg/dl HISTORICAL RESULTS Sodium 140 134 - 143 mmol/L HISTORICAL RESULTS Potassium, sr 3.9 3.4 - 5.0 mmol/L HISTORICAL RESULTS Chloride 105 99 - 108 mmol/L HISTORICAL RESULTS CO2 27 23 - 32 mmol/L HISTORICAL RESULTS Glucose 131 70 - 199 mg/dl HISTORICAL RESULTS Comment: [...] - 14 mmol/L HISTORICAL RESULTS Protein, sr 7.2 6.4 - 8.0 g/dl HISTORICAL RESULTS Alb 3.6 3.3 - 4.5 g/dl HISTORICAL RESULTS Alb/glob ratio 1.0(L) 1.1 - 1.8 HISTO RICAL RESULTS Calcium 9.2 8.6 - 9.8 mg/dl HISTORICAL RESULTS Bilirubin 0.4 0.0 - 1.1 mg/dl HISTORICAL RESULTS Alk phos 67 44 - 125 Units/L HISTORICAL RESULTS AST 20 5 - 40 Units/L HISTORICAL RESULTS ALT 27 15 - 70 Units/L HISTORICAL RESULTS Serum 09/29/2013 4:58 AM CDT us Carson Power MD LAB BLOOD ORDERABLES Final Result HISTORICAL RESULTS * XR CHEST PORTABLE (09/29/2013 4:34 AM CDT) Anatomical Region Laterality Modality Body N/A Radiographic Patricia ging 09/29/2013 4:34 AM CDT Narrative 09/29/2013 2:58 PM CDT XR Chest Portable ? [id number] ??Acc#: ??[id number] DATE OF EXAM: ??Sep ??2013 CLINICAL HISTORY: Chest pain. RESULT: A portable AP radiograph of the chest correlated to the study dated 08/28/13 demonstrates a normal sized heart. ??Lungs are clear. IMPRESSION: NO ACTIVE DISEASE. Interpreting Physician: ??FELIBERTO YORK M.D. ??Read on: ??Sep ??2013 ??7:50A Transcribed by: ??mrr ??On: Sep ??2013 ??2:39P Approved Electronically by: ??FELIBERTO YORK M.D. ??on: ??Sep ??2013 ??2:58P Ordering DR: Attending DR: DR RYAN CASTREJON Procedure Note Provider, MD Rosalinda - 07/15/2016 XR Chest Portable [id number] Acc#: [id number] DATE OF EXAM: Sep 29 2013 CLINICAL HISTORY: Chest pain. RESULT: A portable AP radiograph of the chest correlated to the study dated08/28/13 demonstrates a normal sized heart. Lungs are clear. IMPRESSION: NO ACTIVE DISEASE. Interpreting Physician: FELIBERTO YORK M.D. Read on: Sep 29 2013 7:50A Transcribed by: [email or web address] On: Sep 29 2013 2:39P Approved Electronically by: FELIBERTO YORK M.D. on: Sep 29 2013 2:58P Ordering DR: Attending DR: DR RYAN CASTREJON us Historical Provider MD ALTAMIRANO XR PROCEDURES Final R esult * Microbiology Summary (09/29/2013 12:00 AM CDT) 09/29/2013 Narrative HISTORICAL RESULTS - 10/01/2013 12:38 AM CDT ? [facility] ?CLINICAL LABORATORIES ? MICROBIOLOGY REPORT PATIENT NAME: ??ABENA GIRON ? MED RECORD#: ??[id number] BIRTHDATE: ??1940 ?? AGE: ??73 YRS SEX: F ?PATIENT#: ? [id number] ADMITTING DR: ??EMERY COLLAZO MD ? ATTENDING DR: ??EMERY COLLAZO MD ?ACCESSION#: ?? [id number] CREATED: ??10/01/13 ?? 0036 ? ADMIT DATE: ?? 09/29/13 ? MICRO - MISCELLANEOUS STAPHYLOCOCCUS SCREEN ? Collected: 09/29/13 0728 ? Received: 09/29/13 0740 Source: NOSE ?Started: 09/29/13 0809 ?FOR MRSA ?09/30/13 0554 ? NO METHICILLIN RESISTANT STAPH AUREUS CULTURED ?PENDING ORDERS [id number] ??09/30/13 1240 BASIC METABOLIC PANEL 06/1999 ?? DSPTCH ?? END OF CHART Historical Provider LAB MICROBIOLOGY - GENERA L ORDERABLES Final Result Performing Organization Address [place] de Phone Number HISTORICAL RESULTS * ELECTROCARDIOGRAPHY (ECG) (09/29/2013) Narrative 09/29/2013 Ordered by an unspecified provider. Historical Provider ECG ORDERABLES Final Res ult * Blood B-type natriuretic peptide (BNP) (09/28/2013 11:58 PM CDT) BNP 73 -<100 pg/ml HISTORIC AL RESULTS Blood specimen (specimen) 09/28/2013 11:58 PM CDT Narrative HISTORICAL RESULTS - 09/29/2013 1:00 AM CDT BNP REFERENCE RANGE <100 pg/ml Carson Power MD LAB BLOOD ORDERABLES Final Result Performing Organization Address [place] de Phone Number HISTORICAL RESULTS * (ABNORMAL) Serum troponin I (09/28/2013 11:58 PM CDT) Troponin I 0.14(H) 0.00 - 0.10 ng/ml HISTORICAL RESULTS Serum 09/28/2013 11:5 8 PM CDT Narrative HISTORICAL RESULTS - 09/29/2013 12:38 AM CDT NEGATIVE: ??0.00 - 0.10 NG/ML INDETERMINATE: ??0.11 - 0.50 NG/ML POSITIVE: ??GREATER THAN 0.50 NG/ML Carson Power MD LAB BLOOD ORDERABLES Final Result Performing Organization Address [place]/[facility] Co de Phone Number HISTORICAL RESULTS documented in this encounter Visit Diagnoses Diagnosis Essential hypertension Unspecified essential hypertension Abnormal levels of other serum enzymes Acute sinusitis Acute sinusitis, unspecified Abdominal pain, epigastric Esophageal reflux Other and unspecified hyperlipidemia Coronary atherosclerosis Coronary atherosclerosis of unspecified type of vessel, [place] or graft Personal history of allergy to penicillin Personal history of allergy to narcotic agent History of allergy to other specified medicinal agents documented in this encounter Care Teams Towboat Operator Relationship Specialty Start Date End Date Ryan Castrejon MD PCP - General 03/31/13 05/28/16 documented as of this encounter
--- OUTSIDE RECORDS SUMMARY | 2024-04-11 06:41 | XMS_ITS | Encounter Summary ---
Author Organization [facility] Healthcare Address [address] [place] [address] Care Team Providers Care Life Skills Educator Name Role Phone Unavailable Primary Care Provider Unavailabl e Encounter Details Date Type Department Care Team (Late st Contact Info) Description 06/20/2010 12:01 AM CDT - 06/20/2010 11:59 PM CDT Hospital Encounter [facility] Jose Frausto MD [address] [place] [id number] Procedure not carried out for other reasons Social History Tobacco Use Types Packs/Day Years Used Date Smoking Tobacco: Never Assessed Comments Unknown Sex and Gender Information Value Date Recorded Sex Assigned at Not on file 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
--- OUTSIDE RECORDS SUMMARY | 2024-04-12 00:08 | XMS_ITS | Encounter Summary ---
Author Organization [facility] Healthcare Address [address] [place] [address] Care Team Providers Care Academic Records Specialist Name Role Phone Reynaldo Flannery DO Unavailable [phone] Guanakito Holland MD Unavailable [phone] Jaleel Mcgovern MD Primary Care Provider [phone] Encounter Details Date Type Department Care Team (Late st Contact Info) Description 08/06/2023 Telephone [facility] Medical Group Cardiology [address] [address] Mannie Hernandez MD [address] [facility] [address] [facility] [address] [place] [address] Social History Tobacco Use Types [...] Recorded Patient Health Questionnaire-2 Score 0 08/23/2022 [facility] [place] of Occupat ional Health - Occupational Stress [...] file 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
== END 2024-04-09 16:00 | disposition home or self-care (01) | DRG 291 ==
LOC: ANHED 13:35 → ANH3MEDSUR 16:08 → ANH2MED 04-05 15:18
PROVIDERS: Emergency Medicine; Nurse Practitioner Adult Health; Physician Assistant; Admitting Provider Internal Medicine; Emergency Provider Student in an Organized Health Care Education/Training Program; PCP Family Medicine; Visit Provider Nurse Practitioner
DX: I11.0 Hypertensive heart disease with heart failure (principal); I50.23 Acute on chronic systolic (congestive) heart failure; J96.01 Acute respiratory failure with hypoxia; I48.20 Chronic atrial fibrillation, unspecified; J90 Pleural effusion, not elsewhere classified; I70.8 Atherosclerosis of other arteries; I73.9 Peripheral vascular disease, unspecified; I71.9 Aortic aneurysm of unspecified site, without rupture; I25.10 Atherosclerotic heart disease of native coronary artery without angina pectoris; E87.6 Hypokalemia; E78.5 Hyperlipidemia, unspecified; R19.7 Diarrhea, unspecified; F41.9 Anxiety disorder, unspecified; Z20.822 Contact with and (suspected) exposure to COVID-19; Z86.73 Personal history of transient ischemic attack (TIA), and cerebral infarction without residual deficits; Z79.01 Long term (current) use of anticoagulants; Z95.0 Presence of cardiac pacemaker; Z95.5 Presence of coronary angioplasty implant and graft; Z87.891 Personal history of nicotine dependence; Z79.82 Long term (current) use of aspirin
CPT/HCPCS: 32555; 36415; 71045; 80048; 80053; 81001; 82248; 83735; 83880; 84132; 84443; 84484; 85025; 85027; 85610; 85730; 87045; 87427; 87449; 87493; 87637; 93005; 96376; 99285; A9270; G0378; J1940; J2405; J3480; J7040

== ENCOUNTER 2024-04-26 11:45 | Outpatient (CLI) | payer MEDICARE, SELFPAY ==
--- NOTE | ~2024-04-26 | XR_ITS ---
CHEST RADIOGRAPH, PA AND LATERAL CLINICAL HISTORY: I50.9 - Heart failure, unspecified, SOB, RECENT THORA . COMPARISON: 04/08/2024 TECHNIQUE: PA and lateral views of the chest. FINDINGS The cardiomediastinal silhouette is partially obscured. The left mid lung is partially obscured due to pacemaker generator. Wires project over the right atrium and right ventricle. Large left-sided pleural effusion, demonstrating progression from previous examination performed less than one month earlier. The right hemithorax is clear. IMPRESSION: Large left-sided pleural effusion. Reviewed, dictated and finalized at location A. STRAIGHTENING MACHINE OPERATOR
--- OUTSIDE RECORDS SUMMARY | 2024-04-26 13:00 | XMS_ITS | Encounter Summary ---
Author Organization [facility] Healthcare Address [address] [place] [address] Care Team Providers Care Irrigation System Installer Name Role Phone Reynaldo Flannery DO Unavailable [phone] Guanakito Holland MD Unavailable [phone] Jaleel Mcgovern MD Primary Care Provider [phone] Encounter Details Date Type Department Care Team (Late st Contact Info) Description 08/12/2022 Telephone [facility] Physical Medicine and Rehabilitation [address] [place] [address] Kimberly Gibbons, SPOT WASHER Social History Tobacco Use Types Packs/Day Years [...] Date Recorded PHQ-2 Total Score 0 08/12/2022 [facility] [place] of Occupat ional Health - Occupational Stress [...] file 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 Patient is currently at [facility] . The patient is being referred and [...] Payor Source: Primary: Medicare A&B Secondary:Policy number: [id number] Case discussed with Dr. Nena Oneal on [...] Use: Not on file Patient's Preferred Language: Lithuanian Cultural Requests During Hospitalization: none conveyed Acute [...] DAPT who presents after receiving TNK at [facility] as a thrombectomy page. Per the patient's family at bedside, the patient was having lunch with one of her daughters when her daughter noticed that she started leaning towards the right. She subsequently became mute and developed a left gaze preference. Her last known normal was 1305. [facility] to [facility], there her NIHSS was reportedly a [address] physician[address] Gomez evaluated the patient by telestroke and recommended a CTH + CTA head and neck. She had a hyperdense left MCA sign on CTH and a left M1 occlusion on CTA. She was a GO for TNK and received the drug at 1423.She was then transferred to [facility] for thrombectomy evaluation. On arrival her [...] DAPT who presents after receiving TNK at [facility] as a thrombectomy page. The patient [...] a 82y/o female with PMH of CAD, ME, SSS s/p Biotronik pacemaker, Atrial fibrillation (previously [...] BP of 68/31. She was taken to [facility] for further evaluation as a Code [place]. [...] of TNK at 14:28 and transferred to [facility] ED for mechanical thrombectomy evaluation. Upon arrival to [facility] ED her vital signs were: HR [...] RA lead revision on 09/14/18 done at [facility]), non-morbid obesity (BMI 30), GENNY non compliant with CPAP, PAD and carotid artery stenosis who presented to [facility] on 08/03/22 with R si ded [...] their arrival. She was initially taken to [facility] to evaluation for stroke. Her BP's improved to 109/89 [address] Head showed a large hyperdense MCA without hemorrhage, then subsequent CTA Head/Neck showed complete occlusion of theM1 segment of the L MCA. There were also carotid stenoses in the proximal LICA (80%) and proximal SKYLAR (50%). Ms Giron was then transferred to [facility] for tPA and thrombectomy. Ms Giron had an ME in 2013 requiring JOI to mid LCx performed at [facility]. Subsequently shedeveloped atrial fibrillation and tachy-hailey [...] woman with past medical history of CAD, ME, SSS s/p Biotronikpacemaker, Atrial fibrillation (previously on [...] Work-up: - Monitor on telemetry Consults: SMART (Supervisor Instant Potato Processing, PT/OT, SPOT WASHER, Spiritual Care) #Hyperlipidemia LDL on admission was 68. Goal LDL for secondary stroke prevention is <70. She has previously refused anti-lipid medication reporting feeling unwell on medicaiton and with muscle pain without weakness. # CAD s/p ME with stent placement (2013) # HFrEF (LVEF 20%, was LVEF 40% in 2019) She follows with Dr. Hernandez [facility] Cardiology - last seen 07/18/22 in [...] BID and taking intermittently, however her pharmacy ([facility]) indicates she does not fill this medication [...] in the field was 68/31, 90/45 at [place]. Initially responded to fluid boluses. Noted to [...] a 82y/o female with PMH of CAD, ME, SSS s/p Biotronik pacemaker, Atrial fibrillation (previously [...] BP of 68/31. She was taken to [facility] for further evaluation as a Code [place]. [...] of TNK at 14:28 and transferred to [facility] ED for mechanical thrombectomy evaluation. Upon arrival to [facility] ED her vital signs were: HR [...] woman with past medical history of CAD, ME, SSS s/p Biotronikpacemaker, Atrial fibrillation (previously on [...] differential for consideration per TOAST criteria include: [id number] embolism or cardioembolism. Cardioembolism is most likely [...] mg PO qHS (SPARCL trial). The current [place] Stroke [employer] guidelines recommend long-term treatment with [...] muscle pain without weakness. # CAD s/p ME with stent placement (2013) # HFrEF (LVEF 20%, was LVEF 40% in 2019) She follows with Dr. Hernandez [facility] Cardiology - last seen 07/18/22 in [...] and taking intermittently, however her pharmacy ([facility] [place]) indicates she does not fillthis medication and [...] admitted to acute: 08/03/22 Precautions/Restrictions: Aspiration, Falls [place] Suicide Severity Rating Scale: Allergies: Allergies Allergen [...] bed mobility SBA (08/12/2022 9:31 AM) Cognition/Communication/Swallowing: SPOT WASHER Communication: expressive aphasia (08/12/2022 9:31 AM) SPOT WASHER Swallowing: Mild Dysphagia - pureed/thin (08/12/2022 9:31 AM) Conditions requiring acute rehab and risk for complications: Gait dysfunction - risk for falls and further injury, fracture Uncontrolled Hypertension - risk for stroke, stroke extension, ME Decreased mobility - Risk for Fall, skin [...] by a provider, Intense PT/OT/SP, Access to Glassware Maker physicians, Supervised feeding groups, Frequent Neuroassessment, Bowel [...] the intensive Inpatient rehabilitation program offered at [facility] . documented in this encounter Plan of Treatment Not on file documented as of this encounter Visit Diagnoses Not on filedocumented in this encounter Care Teams Irrigation System Installer Relationship Specialty Start Date End Date Jaleel Mcgovern MD PCP - General Family Practice 07/18/22 Reynaldo Flannery DO Consulting Physician Cardiology 09/26/17 Guanakito Holland MD Consulting Physician Cardiovascular Disease 07/29/18 documented as of this encounter
--- OUTSIDE RECORDS SUMMARY | 2024-04-26 13:00 | XMS_ITS | Referral Summary ---
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 (Primary Dx); History of coronary artery stent placement; Cardiac pacemaker in situ; Permanent atrial fibrillation (CMS/HCC) (HCC) 03/08/2024 11:13 AM SHOT PACKER - 03/08/2024 11:59 PM SHOT PACKER Hospital Encounter [address] [address] Cardiac pacemaker in situ; HFrEF (heart failure with reduced ejection fraction) (CMS/HCC) (HCC); Permanent atrial fibrillation (CMS/HCC) (HCC) Discharge Disposition: Discharge to home or self care 03/08/2024 11:15 AM SHOT PACKER Lab [facility] Outpatient Lab at [address] [phone] Hyperlipidemia (Primary Dx); Hypertension 02/13/2024 11:00 AM SHOT PACKER Office Visit [facility] Cardiology at [address] [place] [phone] Mannie Hernandez MD Cardiac pacemaker in situ (Primary Dx); HFrEF (heart failure with reduced ejection fraction) (CMS/HCC) (HCC); Permanent atrial fibrillation (CMS/HCC) (HCC) 02/04/2024 Telephone [facility] Cardiology [address] [place] [phone] Mannie Hernandez MD Shortness of Breath; Joint Swelling 01/29/2024 Telephone [facility] Cardiology [address] [facility] [address] [place] [phone] Lizbet Miller MA Pt assistance forms 01/28/2024 Orders Only [facility] Cardiology [address] [place] [address] [place] [phone] Mannie Hernandez MD Paroxysmal atrial fibrillation (CMS/HCC) (HCC) (Primary Dx); Sick sinus syndrome (CMS/HCC) (HCC); HFrEF (heart failure with reduced ejection fraction) (CMS/HCC) (HCC) 01/27/2024 9:30 AM SHOT PACKER Ancillary Procedure [facility] Cardiology [address] [place] [address] [place] [phone] Cardiac pacemaker in situ [Z95.0] (Primary Dx); Paroxysmal atrial fibrillation (CMS/HCC) (HCC); Sick sinus syndrome (CMS/HCC) (HCC) from Last 3 Months Allergies Active Allergy [...] pain Active furosemide (LASIX) 20 mg tablet Take 2 tablets (40 mg total) by mouth daily 3 Active coenzyme Q10 30 mg capsule [...] Noted Date Diagnosed Date Permanent atrial fibrillation ([facility]) 02/13/20 24 HFrEF (heart failure with re duced ejection fraction) ([facility]) 08/29/2022 Assessment & Plan (08/29/2022 9:31 PM [...] is to continue close follow-up with local planting machine operator and therefore would like to discuss [...] needed. Assessment & Plan (03/12/2017 2:39 PM SHOT PACKER): Patient has Xanax for p.r.n. use. She is somewhat afraid to use this medication. She notes a positive response when she needs it. She states she is having panic attacks once to twice a month at [place]. She has been logging these since December. She states her anxiety/panic began after her . She has not been in for any formal counseling since his passing. She did see someone at [facility] for awhile. We discussed Senior renewal. She declines at the present time. She would like to continue to monitor her panic attacks and was instructed to use Xanax as previously prescribed on an as needed basis. Coronary artery disease invo lving ewiiaapaayp coronary artery of ewiiaapaayp heart 12/25/2016 Overview (04/19/2019): Status post PCI in June 2013 (RL). Normal Cardiolite in August 2014. Assessment & Plan (08/29/2022 9:25 PM CDT): Denies any chest pain or anginal equivalent. Recent drop in her LVEF to 20% from 40% with unclear etiology. Continue aspirin, metoprolol and Crestor. Would like to discuss with her local planting machine operator about additional ischemic workup as she [...] given Assessment & Plan (03/12/2017 2:37 PM SHOT PACKER): Blood pressure is slightly elevated during office [...] is less than 70. Will discuss local planting machine operator about statin therapy and possible PCSK9 inhibitor. Assessment & Plan (07/29/2018 4:47 AM CDT): Not on statin Osteoarthritis 01/20/2013 Overview (06/27/2016): Osteoarthritis Resolved Problems Problem Noted Date Diagnosed Date Resolved Date Chest pain 09/29/2018 12/24/2018 Hypertensive urgency 09/29/2018 019 Anxiety 09/29/2018 12/24/2018 Sick sinus syndrome (CMS/HCC) 09/14/2018 02/13/2024 Overview (04/19/2019): Status post Biotronik Edora 8 DRT on 29 Jul 2018 (RL). New atrial lead on 14 September 2018 (DG). Diarrhea of infectious origin 07/29/2018 12/24/2018 NSTEMI (non-ST elevated myoc ardial infarction) ([facility]) 07/29/2018 02/01/2020 Assessment & Plan (07/29/2018 4:52 AM CDT): Patient currently in AFib with RVR. Suspect elevated troponins are due to demand ischemia. Will continue on telemetry monitoring Trend troponins Repeat EKG in a.m. Cardiology consult Keep the patient NPO Patient currently on Eliquis oral anticoagulation Patient denies any chest pain Atrial fibrillation with rap id ventricular response ([facility]) 09/25/2017 02/01/2020 Assessment & Plan (07/29/2018 4:51 AM CDT): Continue with amiodarone drip. Patient completed a dose of digoxin. Cardiology consult in a.m. Will obtain echo cardiac in a.m. Telemetry monitoring Restart Eliquis Cough 03/12/2017 06/24/2017 Assessment & Plan (03/12/2017 2:39 PM SHOT PACKER): Influenza A negative influenza B negative. Sore throat 03/12/2017 06/24/2017 Assessment & Plan (03/12/2017 2:39 PM SHOT PACKER): Rapid strep negative. Viral URI with cough 03/12/2017 018 Assessment & Plan (03/12/2017 2:40 PM SHOT PACKER): Humidification, fluids, and rest were recommended. Patient [...] any ill side effects. Paroxysmal atrial fibrillation ([facility]) 12/25/2016 02/13/2024 Assessment & Plan (08/29/2022 9:26 PM CDT): In normal rhythm today. Continue metoprolol and Eliquis. Assessment & Plan (07/23/2019 11:05 AM CDT): Routinely follows-up with at [facility]. NSR today in office. Cnt. Eliquis for anticoagulation Assessment & Plan (03/12/2017 2:37 PM SHOT PACKER): Patient will continue routine follow-up with Dr. Pennie pierre and local planting machine operator as recommended. She reports compliance with her [...] Recorded Patient Health Questionnaire-2 Score 0 08/23/2022 [facility] Occupat ional Health - Occupational Stress [...] on file Legal Sex Female 11:18 AM SHOT PACKER Gender Identity Female 10/09/2022 9:08 AM CDT Sexual Orientation Choose not to disclose 2022 9:08 AM CDT Last Filed Vital Signs Vital Sign Reading Time Taken Comments Blood Pressure 112/72 04/16/2024 10:42 AM SHOT PACKER Pulse 79 04/16/2024 10:42 AM SHOT PACKER Temperature 36.4 ??C (97.6 ??F) 10/24/2022 11:50 AM C DT Respiratory Rate 18 10/24/2022 11:50 AM CDT Oxygen Saturation 95% 04/16/2024 10:42 AM SHOT PACKER Inhaled Oxygen Concentration - - Weight 61.7 kg (136 lb) 04/16/2024 10:42 AM SHOT PACKER Height 154.9 cm (5' 1 ) 04/16/2024 10:42 AM SHOT PACKER Body Mass Index 25.7 04/16/2024 10:42 AM SHOT PACKER Plan of Treatment Not on file Medical Devices Implanted Type Area Wood Heel Back Liner Device Identifier Shelf Expiration Date Model / Serial / Lot Biotronik Inc [id number] Endocardial Pacing Lead Promri Solia Jt 45 - [id number] - [id number] Implanted:Qty: 1 on 07/29/2018 by Guanakito Holland MD at [facility] Lead [employer] Inc 12/22/2019 [id number] / [id number] / [employer] [id number] Endocardial Pacing Lead Promri Solia T 53 - [id number] - [id number] Implanted:Qty: 1 on 07/29/2018 by Guanakito Holland MD at [facility] Lead [employer] 12/22/2019 [id number] / [id number] / Bi[employer]ronik Inc [id number] Solia S 45cm Bipolar Active Fixation Lead Pacing Steroid Eluting - [id number] - [id number] Implanted:Qty: 1 on 09/14/2018 by Reynaldo Flannery DO at [facility] Lead [employer] Inc [id number] 05/21/2020 [id number] / [id number] / [id number] Bi[employer] Inc [id number] Edora Promri 32e09z2.5mm 1 Chamber Rate Adaptive Unipolar Bipolar - [id number] - [id number] Implanted:Qty: 1 on 07/29/2018 by Guanakito Holland MD at [facility] Pacemaker [employer] Inc 11/22/2019 [id number] / [id number] / Medtronic Cardiac Rhythm Mgmt [id number] Tyrx 2.7x2.5in Medium Envelope Absorbable Polyarylate Minocycline - [id number] Implanted:Qty: 1 on 09/14/2018 by Reynaldo Flannery DO at [facility] [employer] Inc 10/21/2018 [id number] / / [id number] Chinchilla Vascular Perclose 6fr Vascular Closure [id number] - [id number] Implanted:Qty: 1 on 08/03/2022 at [facility] [employer] 03/23/2024 1267 3-03 / / [id number] Procedures Procedure Name Priority Date/Time Associated Diagnosis Comments EGFR Routine 03/08/2024 11:13 AM SHOT PACKER Cardiac pacemaker in situ HFrEF (heart failure with reduced ejection fraction) (CMS/HCC) (HCC) Permanent atrial fibrillation (CMS/HCC) (HCC) BASIC METABOLIC PANEL Routine 03/08/2024 11:13 AM SHOT PACKER Cardiac pacemaker in situ HFrEF (heart failure with reduced ejection fraction) (CMS/HCC) (HCC) Permanent atrial fibrillation (CMS/HCC) (HCC) DEVICE CHECK - REMOTE Routine 01/28/2024 11:02 AM SHOT PACKER Paroxysmal atrial fibrillation (CMS/HCC) (HCC) Sick sinus syndrome (CMS/HCC) (HCC) SCREENING MAMMOGRAM BILATERAL W OSCAR Schedule Routine, Read Routine (OP Routine) 04/06/2020 1:21 PM SHOT PACKER Visit for screening mammogram Essential hypertension Mixed hyperlipidemia COLONOSCOPY Routine 05/26/2019 HM DEXA SCAN Routine 11/14/2014 from Last 3 Months or Most Recently Relevant to Health Maintenance Results * eGFR (03/08/2024 11:13 AM SHOT PACKER) eGFR 68 >=60 mL/min/1. 73 m2 Comment: [...] reviewed 2021. Blood 03/08/2024 11:1 3 AM SHOT PACKER 03/08/2024 3:49 PM SHOT PACKER us Mannie Hernandez MD LAB BLOOD ORDERABLES Fin al Result [facility] [address] Department [place] [address] * Basic metabolic panel (03/08/2024 11:13 AM SHOT PACKER) Sodium 143 135 - 145 mmol/L Potassium, pl 3.5 3.3 - 4.9 mmol/L [facility] Chloride 103 97 - 110 mmol/L [facility] CH CO2 30 22 - 32 mmol/L [facility] Anion gap 10 2 - 15 mmol/L [facility] BUN 12 6 - 25 mg/dL [facility] Creatinine 0.85 0.60 - 1.10 mg/dL [facility] Glucose 135 70 - 199 mg/dL [facility] Comment: Interpretive Data Fasting glucose >/= 126 [...] mg/dL [facility] Blood 03/08/2024 11:1 3 AM SHOT PACKER 03/08/2024 3:49 PM SHOT PACKER us Mannie Hernandez MD LAB BLOOD ORDERABLES Fin al Result [facility] [address] [facility] Department [place] [address] * DEVICE CHECK - REMOTE (01/28/2024 11:02 AM SHOT PACKER) Anatomical Region Laterality Modality Other Narrative 02/05/2024 12:55 PM SHOT PACKER Biotronik Dual Pacemaker. Dx; SSS, Afib. DOI 07/29/2018-Dr Holland. RA Lead replaced 09/14/18. AV Node Ablation 12/2018. Biotronik remote monitoring. Routine VVI Pacemaker Remote. Transmission attached. Battery status-Ok, 50% remaining to LEANA. Stable lead impedances, pacing and sensing thresholds. Presenting rhythm: Vpaced. ENTEROSTOMAL NURSE-88 %. No Ventricular arrhythmias detected. ?? Medication: Eliquis, Toprol XL. Office pacemaker f/u in 9-12 months. Biotronik remote f/u 05/04/2024. Merry Cavanaugh RN us Mannie Hernandez MD [facility] CARDIAC SERVICES PROC EDURES Final Result * Screening Mammogram Bilateral W Oscar (04/06/2020 1:21 PM SHOT PACKER) Anatomical Region Laterality Modality Breast Bilateral Mammography 04/06/2020 2:09 PM SHOT PACKER Impressions 04/06/2020 3:13 PM SHOT PACKER There is no mammographic evidence of malignancy. A 1 year screening mammogram is recommended. BI-RADS: 2 - Benign. The patient will be entered into a reminder system with a target due date of 1 year for her next mammogram. Electronically signed by: Micaela Jang MD Narrative 04/06/2020 3:13 PM SHOT PACKER EXAMINATION: SCREENING MAMMOGRAM BILATERAL W OSCAR ORDERING [...] There has been no suspicious interval change. Result [facility] Ryan Castrejon MD IMG MAMMO PROCEDURES Final Res ult * Colonoscopy (05/26/2019) Anatomical Region Laterality Modality Other Historical Provider ENDOSCOPY PROCEDURES Roshni l Result * DEXA SCAN (11/14/2014) DEXA Scan Abnormal Comment:Osteopenia Historical Provider HEALTH MAINTENANCE Final Result from Last 3 Months or Most Recently Relevant to Health Maintenance Insurance MEDICARE [facility] MEDICARE [facility] BLUE CROSS MEDICARE SUPPLEMENT MEDICARE BLUE CROSS MEDICARE SUPPLEMENT MEDICARE [facility] Advance Directives For more information, please contact: [phone] * LIMITED - No CPR (Latest Code [...] 11:36 AM 10/19/2019 7:30 PM Care Teams Director Of Assisted Living Relationship Specialty Start Date End Date Jaleel Mcgovern MD PCP - General Family Practice 07/18/22 Reynaldo Flannery DO Consulting Physician Cardiology 09/26/17 Guanakito Holland MD Consulting Physician Cardiovascular Disease 07/29/18
--- OUTSIDE RECORDS SUMMARY | 2024-04-26 13:00 | XMS_ITS | Clinical Summary ---
Author Organization [facility] Address [address] [place] [address] Care Team Providers [employer] Consultant Name Role Phone Reynaldo Flannery DO Unavailable [phone] Guanakito Holland MD Unavailable [phone] Jaleel Mcgovern MD Primary Care Provider [phone] Allergies Active Allergy Reactions Criticality Noted Date [...] Noted Date Diagnosed Date Permanent atrial fibrillation (CMS/[facility]) 02/13/20 24 HFrEF (heart failure with re duced ejection fraction) ([facility]) 08/29/2022 Assessment & Plan (08/29/2022 9:31 [...] is to continue close follow-up with local wing scorer and therefore would like to discuss with [...] needed. Assessment & Plan (03/12/2017 2:39 PM [employer]): Patient has Xanax for p.r.n. use. She [...] his passing. She did see someone at [facility] for awhile. We discussed Senior renewal. She declines at the present time. She would like to continue to monitor her panic attacks and was instructed to use Xanax as previously prescribed on an as needed basis. Coronary artery disease invo lving [place] coronary artery of [place] heart 12/25/2016 Overview (04/19/2019): Status post PCI in June 2013 (RL). Normal Cardiolite in August 2014. Assessment & Plan (08/29/2022 9:25 PM CDT): Denies any chest pain or anginal equivalent. Recent drop in her LVEF to 20% from 40% with unclear etiology. Continue aspirin, metoprolol and Crestor. Would like to discuss with her local wing scorer about additional ischemic workup as she plans [...] given Assessment & Plan (03/12/2017 2:37 PM [employer]): Blood pressure is slightly elevated during office [...] is less than 70. Will discuss local wing scorer about statin therapy and possible PCSK9 inhibitor. Assessment & Plan (07/29/2018 4:47 AM CDT): Not on statin Osteoarthritis 01/20/2013 Overview (06/27/2016): Osteoarthritis Resolved Problems Problem Noted Date Diagnosed Date Resolved Date Chest pain 09/29/2018 12/24/2018 Hypertensive urgency 09/29/2018 019 Anxiety 09/29/2018 12/24/2018 Sick sinus syndrome ([facility]) 09/14/2018 02/13/2024 Overview (04/19/2019): Status post Biotronik Edora 8 DRT on 29 Jul 2018 (RL). New atrial lead on 14 September 2018 (DG). Diarrhea of infectious origin 07/29/2018 12/24/2018 NSTEMI (non-ST elevated myoc ardial infarction) ([facility]/HCC) 07/29/2018 02/01/2020 Assessment & Plan (07/29/2018 4:52 AM CDT): Patient currently in AFib with RVR. Suspect elevated troponins are due to demand ischemia. Will continue on telemetry monitoring Trend troponins Repeat EKG in a.m. Cardiology consult Keep the patient NPO Patient currently on Eliquis oral anticoagulation Patient denies any chest pain Atrial fibrillation with rap id ventricular response ([facility]) 09/25/2017 02/01/2020 Assessment & Plan (07/29/2018 4:51 AM CDT): Continue with amiodarone drip. Patient completed a dose of digoxin. Cardiology consult in a.m. Will obtain echo cardiac in a.m. Telemetry monitoring Restart Eliquis Cough 03/12/2017 06/24/2017 Assessment & Plan (03/12/2017 2:39 PM [employer]): Influenza A negative influenza B negative. Sore throat 03/12/2017 06/24/2017 Assessment & Plan (03/12/2017 2:39 PM [employer]): Rapid strep negative. Viral URI with cough 03/12/2017 018 Assessment & Plan (03/12/2017 2:40 PM [employer]): Humidification, fluids, and rest were recommended. Patient [...] any ill side effects. Paroxysmal atrial fibrillation ([facility]) 12/25/2016 02/13/2024 Assessment & Plan (08/29/2022 9:26 PM CDT): In normal rhythm today. Continue metoprolol and Eliquis. Assessment & Plan (07/23/2019 11:05 AM CDT): Routinely follows-up with at [facility]. NSR today in office. Cnt. Eliquis for anticoagulation Assessment & Plan (03/12/2017 2:37 PM [employer]): Patient will continue routine follow-up with Dr. Pennie pierre and local wing scorer as recommended. She reports compliance with her [...] Department Care Team Description 04/16/2024 11:00 AM [employer] Office Visit [facility] Cardiology at [address] [place] [address] Mannie Hernandez MD Coronary artery disease involving [place] coronary artery of [place] heart without angina pectoris (Primary Dx); History of coronary artery stent placement; Cardiac pacemaker in situ; Permanent atrial fibrillation (CMS/HCC) ([facility]) 03/08/2024 11:15 AM [employer] Lab [facility] Outpatient Lab at [address] [phone] Hyperlipidemia (Primary Dx); Hypertension 03/08/2024 11:13 AM [employer] - 03/08/2024 11:59 PM [employer] Hospital Encounter [address] [address] Cardiac pacemaker in situ; HFrEF (heart failure with reduced ejection fraction) (CMS/HCC) (HCC); Permanent atrial fibrillation (CMS/HCC) (HCC) Discharge Disposition: Discharge to home or self care 02/13/2024 11:00 AM [employer] Office Visit [facility] Cardiology at [address] [place] [address] Mannie Hernandez MD Cardiac pacemaker in situ (Primary Dx); HFrEF (heart failure with reduced ejection fraction) (CMS/HCC) (HCC); Permanent atrial fibrillation (CMS/HCC) (HCC) 02/04/2024 Telephone [facility] Cardiology [address] [facility] [address] [place] [phone] Mannie Hernandez MD Shortness of Breath; Joint Swelling 01/29/2024 Telephone [facility] Cardiology [address] [facility] [address] [place] [phone] Lizbet Miller MA Pt assistance forms 01/28/2024 Orders Only [facility] Cardiology [address] [place] [address] [place] [phone] Mannie Hernandez MD Paroxysmal atrial fibrillation (CMS/HCC) (HCC) (Primary Dx); Sick sinus syndrome (CMS/HCC) (HCC); HFrEF (heart failure with reduced ejection fraction) (CMS/HCC) (HCC) 01/27/2024 9:30 AM [employer] Ancillary Procedure [facility] Cardiology [address] [place] [address] [place] [phone] Cardiac pacemaker in situ [Z95.0] (Primary [...] with stent 2013 [place]/[facility] OTHER SURGICAL HISTORY 03/24/2015 - 03/23/2016 [...] o f : Angina Diabetes Sister 1 [place] Heart attack Sister 1 [place] Heart disease Sister 1 [place] Other Sister 3 DM, CAD; Other Sister 4 Valve Replaceme nt; Relation Name Status Comments Brother 1 68 Brother 2 79 Child Daughter Chelle Jara Father Derek (Age 79) Maternal Grandmother Grandma Mother (Age 93) Sister 1 [place] Alive Sister 2 Alive Sister 3 Sister [...] Patient Health Questionnaire-2 Score 0 08/23/2022 [facility] [place] [employer] [facility] - Occupational Stress [...] on file Legal Sex Female 11:18 AM [employer] Gender Identity Female 10/09/2022 9:08 AM CDT [...] Comments Blood Pressure 112/72 04/16/2024 10:42 AM [employer] Pulse 79 04/16/2024 10:42 AM [employer] Temperature 36.4 ??C (97.6 ??F) 10/24/2022 11:50 AM C DT Respiratory Rate 18 10/24/2022 11:50 AM CDT Oxygen Saturation 95% 04/16/2024 10:42 AM [employer] Inhaled Oxygen Concentration - - Weight 61.7 kg (136 lb) 04/16/2024 10:42 AM [employer] Height 154.9 cm (5' 1 ) 04/16/2024 10:42 AM [employer] Body Mass Index 25.7 04/16/2024 10:42 AM [employer] Plan of Treatment Health Maintenance Due Date Last Done Comments DTaP/Tdap/Td Vaccine (1 - Tdap) 1951 Hepatitis B Screening 1958 Zoster Vaccine (1 of 2) 1990 Pneumococcal vaccine 65+ (1 of 1 - PCV) 2005 Osteoporosis Screening-Bone Density Scan 11/14/2016 11/14/2014, 11/06/2012 Well Visit 65+ 01/30/2021 01/31/2020, 1005/2018, 06/24/2017 Breast Cancer Screening-Mammogram 04/06/2021 021, 11/06/2012 [...] 05/25/2019, 01/06/2017 Medical Devices Implanted Type Area Extrusion Press Operator Device Identifier Shelf Expiration Date Model / Serial / Lot Biotronik Inc [id number] Endocardial Pacing Lead Promri Solia Jt 45 - [id number] - [id number] Implanted:Qty: 1 on 07/29/2018 by Guanakito Holland MD at [facility] Lead [employer] Inc 12/22/2019 [id number] / [id number] / [employer]ik Inc [id number] Endocardial Pacing Lead Promri Solia T 53 - [id number] - [id number] Implanted:Qty: 1 on 07/29/2018 by Guanakito Holland MD at [facility] Lead [employer] 12/22/2019 [id number] / [id number] / Bi[employer]ik Inc [id number] Solia S 45cm Bipolar Active Fixation Lead Pacing Steroid Eluting - [id number] - [id number] Implanted:Qty: 1 on 09/14/2018 by Reynaldo Flannery DO at [facility] Lead [employer] Inc [id number] 05/21/2020 [id number] / [id number] / [id number] Bi[employer]ronik Inc [id number] Edora Promri 54x29z6.5mm 1 Chamber Rate Adaptive Unipolar Bipolar - [id number] - [id number] Implanted:Qty: 1 on 07/29/2018 by Guanakito Holland MD at [facility] Pacemaker [employer]ik Inc 11/22/2019 [id number] / [id number] / Medtronic Cardiac Rhythm Mgmt [id number] Tyrx 2.7x2.5in Medium Envelope Absorbable Polyarylate Minocycline - [id number] Implanted:Qty: 1 on 09/14/2018 by Reynaldo Flannery DO at [facility] Med[employer] Inc 10/21/2018 [id number] / / [id number] [employer] Perclose 6fr Vascular Closure 25916-30 - [id number] Implanted:Qty: 1 on 08/03/2022 at [facility] [employer] 03/23/2024 1267 3-03 / / [id number] Procedures Procedure Name Priority Date/Time Associated Diagnosis Comments EGFR Routine 03/08/2024 11:13 AM [employer] Cardiac pacemaker in situ HFrEF (heart failure with reduced ejection fraction) (CMS/HCC) (HCC) Permanent atrial fibrillation (CMS/HCC) (HCC) BASIC METABOLIC PANEL Routine 03/08/2024 11:13 AM [employer] Cardiac pacemaker in situ HFrEF (heart failure with reduced ejection fraction) (CMS/HCC) (HCC) Permanent atrial fibrillation (CMS/HCC) (HCC) DEVICE CHECK - REMOTE Routine 01/28/2024 11:02 AM [employer] Paroxysmal atrial fibrillation (CMS/HCC) (HCC) Sick sinus syndrome (CMS/HCC) (HCC) SCREENING MAMMOGRAM BILATERAL W OSCAR Schedule Routine, Read Routine (OP Routine) 04/06/2020 1:21 PM [employer] Visit for screening mammogram Essential hypertension Mixed hyperlipidemia COLONOSCOPY Routine 05/26/2019 HM DEXA SCAN Routine 11/14/2014 from Last 3 Months or Most Recently Relevant to Health Maintenance Results * eGFR (03/08/2024 11:13 AM [employer]) eGFR 68 >=60 mL/min/1. 73 m2 Comment: [...] reviewed 2021. Blood 03/08/2024 11:1 3 AM [employer] 03/08/2024 3:49 PM [employer] us Mannie Hernandez MD LAB BLOOD ORDERABLES Fin al Result Performing Organization Address City/State/ZIP Co ri Phone Number ANDREW [address] [address] [place] [address] * Basic metabolic panel (03/08/2024 11:13 AM [employer]) Sodium 143 135 - 145 mmol/L Potassium, pl 3.5 3.3 - 4.9 mmol/L [facility] Chloride 103 97 - 110 mmol/L [facility] CO2 30 22 - 32 mmol/L [facility] Anion gap 10 2 - 15 mmol/L [facility] BUN 12 6 - 25 mg/dL [facility] Creatinine 0.85 0.60 - 1.10 mg/dL [facility] Glucose 135 70 - 199 mg/dL [facility] Comment: Interpretive Data Fasting glucose >/= 126 [...] 2022. Calcium 9.3 8.5 - 10.3 mg/dL [facility] Blood 03/08/2024 11:1 3 AM [employer] 03/08/2024 3:49 PM [employer] Mannie Hernandez MD LAB BLOOD ORDERABLES Fin al Result [facility] [address] [address] Department [place] [address] * DEVICE CHECK - REMOTE (01/28/2024 11:02 AM [employer]) Anatomical Region Laterality Modality Other Narrative 02/05/2024 12:55 PM [employer] Biotronik Dual Pacemaker. Dx; SSS, Afib. DOI 07/29/2018-Dr Holland. RA Lead replaced 09/14/18. AV Node Ablation 12/2018. Biotronik remote monitoring. Routine VVI Pacemaker Remote. Transmission attached. Battery status-Ok, 50% remaining to LEANA. Stable lead impedances, pacing and sensing thresholds. Presenting rhythm: Vpaced. SHAKE CUTTER-88 %. No Ventricular arrhythmias detected. ?? Medication: Eliquis, Toprol XL. Office pacemaker f/u in 9-12 months. Biotronik remote f/u 05/04/2024. Merry Cavanaugh, RN Result [facility] Mannie Hernandez MD CV CARDIAC SERVICES PROC EDURES Final Result * Screening Mammogram Bilateral W Oscar (04/06/2020 1:21 PM [employer]) Anatomical Region Laterality Modality Breast Bilateral Mammography 04/06/2020 2:09 PM [employer] Impressions 04/06/2020 3:13 PM [employer] There is no mammographic evidence of malignancy. A 1 year screening mammogram is recommended. BI-RADS: 2 - Benign. The patient will be entered into a reminder system with a target due date of 1 year for her next mammogram. Electronically signed by: Micaela Jang MD Narrative 04/06/2020 3:13 PM [employer] EXAMINATION: SCREENING MAMMOGRAM BILATERAL W OSCAR ORDERING [...] Recently Relevant to Health Maintenance Insurance MEDICARE [facility] MEDICARE [facility] MEDICARE SUPPLEMENT MEDICARE [facility] MEDICARE SUPPLEMENT MEDICARE [facility] [place] Advance Directives For more information, please contact: [phone] * LIMITED - No CPR (Latest Code [...] 11:36 AM 10/19/2019 7:30 PM Care Teams [employer] Consultant Relationship Specialty Start Date End Date Jaleel Mcgovern MD PCP - General Family Practice 07/18/22 Reynaldo Flannery DO Consulting Physician Cardiology 09/26/17 Guanakito Holland MD Consulting Physician Cardiovascular Disease 07/29/18
--- OUTSIDE RECORDS SUMMARY | 2024-04-26 13:00 | XMS_ITS | CONTINUITY OF CARE DOCUMENT ---
Author Name marielos marielos Address Unknown Organization [facility] Address [address] [place] [address] Phone [phone] Care Team Providers Care Infection Prevention Coordinator Name Role Phone Willis APPIAH, Camron Unavailable RYAN ANDERS MD Unavailable [phone] RYAN ANDERS MD Unavailable [phone] PROBLEMS Condition Status Date Provider Notes Shortness [...] Sick sinus syndrome active Reynaldo Flannery DO terminal operations supervisor drug therapy (Amio darone)- [facility] follows active Reynaldo Flannery DO Fatigue active Lizbet Delgado NP AAA active Lizbet Delgado NP ENCOUNTERS Date Type Provider Location Encounter Diagnosis - In-person encounter Office Visit Camron Pedro MD [facility] AAA - In-person encounter Office Visit Reynaldo Flannery DO [facility] - In-person encounter Office Visit Reynaldo Flannery [facility] Fatigue - In-person encounter Office Visit Reynaldo Flannery [facility] [place] Office - In-person encounter Office Visit Reynaldo Flannery [facility] Office - In-person encounter Office Visit Reynaldo Flannery [facility] [place] Office - In-person encounter Office Visit Reynaldo Flannery DO [facility] terminal operations supervisor drug therapy (Amiodarone)- [facility] follows - In-person encounter Office Visit Reynaldo Flannery [facility] [place] Office - In-person encounter Office Visit Reynaldo Flannery [facility] [place] Office - In-person encounter Office Visit Reynaldo Flannery [facility] Status Post Medtronic (MRI Safe) REVEAL/LinQ - In-person encounter Office Visit Reynaldo Flannery [facility] [place] Office - In-person encounter [facility] - [facility] - [facility] VITAL SIGNS Date Observation Value Provider [...] Mass Index (Ratio) 27.36 kg/m2 Denn is Raleigh DO blood pressure, cuff size regular Kr is Hieu blood pressure, diastolic 70 mm[Hg] Kr ty Hieu blood pressure, systolic 100 mm[Hg] [facility] [place] oxygen saturation, oximetry 98 % Bria [place] pulse rate 92 /min Bria [place] respiratory rate E&M 18 /min Bria [place] weight E&M 147.2 [lb_av] Bria [place] height E&M 61.5 [in_i] Bria [place] Body Mass Index (Ratio) 30.11 kg/m2 Denn is Raleigh DO blood pressure, cuff size regular Ke [...] Mass Index (Ratio) 31.37 kg/m2 Denn is Raleigh DO pulse rate 67 /min Bria [place] oxygen saturation, oximetry 95 % Bria [place] blood pressure, diastolic 80 mm[Hg] Kr isty [place] blood pressure, systolic 140 mm[Hg] Kri sty [place] respiratory rate E&M 18 /min Bria [place] weight E&M 168.8 [lb_av] Bria H[place] height [...] Mass Index (Ratio) 31.45 kg/m2 Denn is Raleigh DO blood pressure, cuff size regular Kr isty [place] blood pressure, diastolic 70 mm[Hg] Kr isty [place] blood pressure, systolic 122 mm[Hg] Kri sty [place] oxygen saturation, oximetry 98 % Bria [place] respiratory rate E&M 17 /min Bria [place] pulse rate 101 /min Bria [place] weight E&M 169.2 [lb_av] Bria H[place] height E&M 61.5 [in_i] Bria [place] Body Mass Index (Ratio) 30.85 kg/m2 Denn is Raleigh DO blood pressure, diastolic 92 mm[Hg] Ananda Gordon-Octavio blood pressure, systolic 140 mm[Hg] Kizzy Gordon-Octavio oxygen saturation, oximetry 97 % Marilia Gordon-Octavio pulse rate 67 /min Marilia Gordon- Octavio [...] blood pressure, systolic 124 mm[Hg] Carlosi stlena [place] respiratory rate E&M 18 /min Bria [place] oxygen saturation, oximetry 96 % Bria [place] pulse rate 107 /min Bria [place] weight E&M 163 [lb_av] Bria [place] height E&M 61.5 [in_i] Bria [place] Body Mass Index (Ratio) 30.48 kg/m2 Denn is Raleigh DO oxygen saturation, oximetry 98 % Quiqueity Denia blood pressure, diastolic 84 mm[Hg] astity [place] blood pressure, systolic 142 mm[Hg] Suri stity [place] pulse rate 60 /min Chastity [place] respiratory rate E&M 16 /min Chastit y [place] weight E&M 164 [lb_av] Suristity [place] height E&M 61.5 [in_i] Suristity [place] Body Mass Index (Ratio) 30.30 kg/m2 Chiquita Yu RESIDENTIAL REMODELING SUBCONTRACTOR blood pressure, cuff size large Ke rri Elidanfelder blood pressure, diastolic 84 mm[Hg] Ke rri Suenenfelder blood pressure, systolic 120 mm[Hg] aB emmett [place] oxygen saturation, oximetry 98 % Shirin [place] respiratory rate E&M 18 /min Shirin frias pulse rate 55 /min Shirin Quinten lder weight E&M 163 [lb_av] Shirin Rinkue lder height E&M 61.5 [in_i] Shirin Rinkue lder Body Mass Index (Ratio) 31.04 kg/m2 Gorge Plurad blood pressure, cuff size regular Kr isty [place] blood pressure, diastolic 80 mm[Hg] Kr isty Hieu blood pressure, systolic 130 mm[Hg] Kri sty [place] oxygen saturation, oximetry 97 % Bria [place] respiratory rate E&M 16 /min Bria [place] pulse rate 76 /min Bria [place] weight E&M 167 [lb_av] Bria [place] height E&M 61.5 [in_i] Bria [place] Body Mass Index (Ratio) 31.04 kg/m2 Chiquita Yu RESIDENTIAL REMODELING SUBCONTRACTOR Body Mass Index (Ratio) 30.67 kg/m2 Blayne is Raleigh DO blood pressure, diastolic 80 mm[Hg] Thomas [...] blood pressure, diastolic 70 mm[Hg] Kr isty [place] blood pressure, systolic 132 mm[Hg] Kri stlena [place] oxygen saturation, oximetry 97 % Bria [place] respiratory rate E&M 16 /min Bria H[place] pulse rate 71 /min Bria [place] weight E&M 165 [lb_av] Bria [place] height E&M 61.5 [in_i] Bria [place] Body Mass Index (Ratio) 30.41 kg/m2 Blayne is Raleigh DO blood pressure, cuff size regular Te [...] LinkLogic 3.5-5.2 sodium, serum 143 mmol/L [employer] [phone]/03/ 16 urea nitrogen/creatinine ratio, serum 15 LinkLogic [...] Not Estab. platelet count 265 X10E3/UL [employer] [phone]/03/ 16 red blood cell distribution width 12.2 [...] LinkLogic 3.5-5.2 sodium, serum 143 mmol/L [employer] [phone]/01/ 23 urea nitrogen/creatinine ratio, serum 15 LinkLogic [...] LinkLogic 3.5-5.2 sodium, serum 142 mmol/L [employer] [phone]/01/ 10 urea nitrogen/creatinine ratio, serum 16 LinkLogic [...] LinkLogic 3.5-5.2 sodium, serum 142 mmol/L [employer] [phone]/07/ 19 urea nitrogen/creatinine ratio, serum 13 LinkLogic [...] LinkLogic 3.5-5.2 sodium, serum 141 mmol/L [employer]ic [phone]/06/ 21 urea nitrogen/creatinine ratio, serum 17 LinkLogic [...] Not Estab. platelet count 233 X10E3/UL [employer]Logic [phone]/06/ 21 red blood cell distribution width 13.5 [...] P petrona is a former smoker. Reynaldo Saahcock DO social history reviewed E&M revi ewed - no changes required Reynaldo Raleigh DO smoking status Former smoker Reynaldo Elizabeth ock DO smoking status Former smoker Reynaldo Elizabeth ock DO social history E&M quit in 1974, smoked 1ppd for 11 years Smoking History: P atient is a former smoker. Reynaldo Flannery DO social history reviewed E&M revi ewed - no changes required Reynaldo Raleigh DO smoking status Former smoker Isaías alfonso [...] (inactive) Management Plan continue current therapy Reynaldo Raleigh DO HRA, CV Assess/Plan, Angina (inactive) Management Plan continue current therapy Reynaldo Raleigh DO HRA, CV Assess/Plan, Angina (inactive) Management Plan continue current therapy Reynaldo Raleigh DO HRA, CV Assess/Plan, Angina (inactive) Management Plan continue current therapy Reynaldo Raleigh DO HRA, CV Assess/Plan, Angina (inactive) Management [...] Management Plan continue current therapy Samm Gigi RESIDENTIAL REMODELING SUBCONTRACTOR HRA, CV Assess/Plan, Angina (inactive) Management Plan continue current therapy Reynaldoyenny Flannery DO HRA, CV Assess/Plan, Angina (inactive) Management Plan continue current therapy Samm Gigi RESIDENTIAL REMODELING SUBCONTRACTOR HRA, CV Assess/Plan, Angina (inactive) Management Plan continue current therapy Samm Gigi RESIDENTIAL REMODELING SUBCONTRACTOR HRA, CV Assess/Plan, Angina (inactive) Management Plan continue current therapy Reynaldo Flannery DO FAMILY HISTORY Family Member Condition Full Brother Family History of Co ronary Artery Disease: Father Negative FH of Coron dominick Artery Disease Mother Family History of Co ronary Artery Disease: INSURANCE PROVIDERS Payer name Policy type / Coverage type [place] [employer] party ID [facility] [id number] [place] MEDICARE PART B Medicare [id number] ADVANCE DIRECTIVES Name Date DISCUSSED - NO DECISION MADE TREATMENT PLAN Date Name Performer [id number],C,B P today 130/90. at home her BP has running 130/80 BP 2020: 100/70 P rior BP: 132/80 (01/06/2020) Labs Reviewed: C reat: 0.87 (02/16/2020) C hol: 210 (10/09/2018) HDL: 45 (10/09/2018) Orders: E KG (CPT-87472) 9 9213 LTD 20-29min (CPT-02149) C omplete Echo (CPT-42821) Camron Pedro MD [id number],W,w orse when in A. fib. E F 40% on echo 12/2019 o n entresto and spironolactone Orders: 9 9213 LTD 20-29min (CPT-62854) C omplete Echo (CPT-42878) Her updated medication list for this problem includes: Entresto 24-26 Mg Tablet (Sacubitril-valsartan) ..... 1 tablet by mouth twice a day Camron Pedro MD [id number],W,l ast remote check 07/2020. 100% AFIB. intolerant of amiodarone and sotalol caused hailey/junctional rhythm. interrogation today: 100% AFIB. normal function. normal function 1 00% AF burden p acer dependent discussed option of treatment with dofetilide in detail. at present patient does not want it Camron Pedro MD [id number],C,l ast remote check 07/2020. 100% AFIB. intolerant of amiodarone and sotalol caused hailey/junctional rhythm. interrogation today: 100% AFIB. normal function. normal function 1 00% AF burden p acer dependent discussed option of treatment with dofetilide in detail. at present patient does not want it Camron Pedro MD [id number],C,i nterrogation of device today 100% AFIB. discussed [...] BIV device if LVF declines. Lizbet Delgado RESIDENTIAL REMODELING SUBCONTRACTOR [id number],C, p rior stent. follows with Amalia khoury iscussed with Amalia. OK to DC Plavix to begin Eliquis. Lizbet Villagomezantolin LANG [id number],C,p t states that she thinks 'its around 3'. she follows with her PCP and is due to have survellience scan in January Lizbet Villagomezantolin LANG [id number],C,B P today 130/90. at home her BP has running 130/80 BP 2020: 100/70 P rior BP: 132/80 (01/06/2020) Labs Reviewed: C reat: 0.87 (02/16/2020) C hol: 210 (10/09/2018) HDL: 45 (10/09/2018) Lizbet Villagomezantolin LNAG [id number],C, due to have labs next month with PCP. Lizbet Villagomezantolin LANG [id number],C, H as severe sinus node dysfunction unable to tolerate antiarrythmic drug. H ad DDD PPM implanted 07/29/[address] Holland. Marlena t prior visit her atrial lead threshold was markedly increased and she was not capturing in the atrium. N ow s/p atrial lead revision 09/14/18 with normal function Lizbet Villagomezantolin LANG [id number],C, E F 40% on echo 12/2019 o n entresto and spironolactone Lizbet Villagomezantolin LANG [id number],C,l ast remote check 07/2020. 100% AFIB. intolerant of amiodarone and sotalol caused hailey/junctional rhythm. interrogation today: 100% AFIB. normal function. pacer dependent normal function 1 00% AF burden p acer dependent Lizbet Delgado RESIDENTIAL REMODELING SUBCONTRACTOR Electrophysiology:BP today 130/90. at home her BP has running 130/80 BP 2020: 100/70 P rior BP: 132/80 (01/06/2020) Labs Reviewed: C reat: 0.87 (02/16/2020) C hol: 210 (10/09/2018) HDL: 45 (10/09/2018) Orders: E KG (CPT-49012) 9 9213 LTD 20-29min (CPT-60553) C omplete Echo (CPT-05589) Camron Pedro MD Electrophysiology:wo rse when in A. fib. E F 40% on echo 12/2019 o n entresto and spironolactone Orders: 9 9213 LTD 20-29min (CPT-67278) C omplete Echo (CPT-07266) Her updated medication list for this problem [...] AF burden p acer dependent Lizbet Delgado RESIDENTIAL REMODELING SUBCONTRACTOR Electrophysiology:EF 40% on echo 12/2019 o n [...] LVF declines. Reynaldo Sahacock DO Electrophysiology ep customs verifier fu NEEDS BILLING:stable Lizbet Ryansadie RESIDENTIAL REMODELING SUBCONTRACTOR Electrophysiology ep customs verifier fu NEEDS BILLING:pt has had 5 episodes since march of sudden onset of extreme fatigue, nausea, excessive vomiting (>20 min), diaphoresis, that wipes her of all energy, and is unable eat for a couple of days following. she had an ERCP in 09/2019. and 01/[address] abd and LFTs drawn ([facility]) will need to obtain records interrogation today no episodes, normal function and no changes were made. doubtful this is cardiac in origin. w ill check ECHO, CMP, CBC, BNP. Lizbet Delgado NP Electrophysiology ep customs verifier fu NEEDS BILLING:paced p aced. s/p PVI [...] 1 mo. Lizbet Delgado NP Electrophysiology ep customs verifier fu NEEDS BILLING:interrogation today, no events, normal [...] 124/70 P rior BP: 142/84 (05/28/2018) [facility]Navarrete s severe sinus node dysfunction unable to tolerate antiarrythmic drug. Had DDD PPM inplmanted 07/29/[address] Holland. Her atrial lead threshold humaira markedly increased and she is not capturing in the atriium. The device was reporgrammed with appropriate atrial capture. She will return to see me in one month but may require atrial lead revision. Reynaldo [facility] Electrophysiology:s/ p PVI 01/01/16. A F [...] but may require atrial lead revision. 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 0 .3% AF burden. S he would like this removed when she comes in for followup 12/2018. Reynaldo [facility] Electrophysiology:s/ p PVI 01/01/16. A F [...] observe. e liquis for OAC Samm Yu RESIDENTIAL REMODELING SUBCONTRACTOR Electrophysiology: B P today: 130/80 P rior [...] 132/70 P rior BP: 122/78 (03/13/2016) [facility] EP:marked hailey with junctional rhtyhm after first dose of Sotalol if needs antarrhythmic Tx will need PPM Reynaldo Raleigh DO EP: p rior stent. follows with [...] needs sleep study Reynaldo Flannery DO EP:prior ND with stent, good LVF Reynaldo Flannery DO EP:ONLY SINgle episo de documented on Cardionet monitor, and pt unsure if she has ever had prior events. C [id number] =3 s uggest Reveal monitor to quanitate [...] EKG Camron tate MD completed EKG Reynaldo Raleigh DO completed EKG Reynaldo Raleigh DO completed EKG Reynaldo Raleigh DO completed EKG Reynaldo Raleigh DO completed EKG Reynaldo Raleigh DO completed ICM Interrogation, Remote (Prof) Reynaldo Raleigh DO INTERROGATION EVAL REMOTE </30 D CV MNTR SYS completed ICM Interrogation, Remote (Tech) Reynaldo Raleigh DO INTERROGATION EVAL REMOTE </30 D TECH REVIEW completed ICM Interrogation, Remote (Prof) Reynaldo Raleigh DO INTERROGATION EVAL REMOTE </30 D CV MNTR SYS completed ICM Interrogation, Remote (Tech) Reynaldo Raleigh DO INTERROGATION EVAL REMOTE </30 D TECH REVIEW completed EKG Reynaldo Raleigh DO completed ICM Interrogation, Remote (Prof) Reynaldo Raleigh DO INTERROGATION EVAL REMOTE </30 D CV MNTR SYS completed ICM Interrogation, Remote (Tech) Reynaldo Raleigh DO INTERROGATION EVAL REMOTE </30 D TECH REVIEW completed EKG Reynaldo Raleigh DO completed EKG Reynaldo Raleigh DO completed Loop Recorder Interrogation, Remote Reynaldo Raleigh DO INTERROGATION EVALUATION REMOTE </30 D ILR SYS completed ICM Interrogation, Remote (Tech) Reynaldo Raleigh DO INTERROGATION EVAL REMOTE </30 D TECH REVIEW completed Pacemaker Interrogation, Remote (Tech) Reynaldo Raleigh DO INTERROGATION REMOTE </90 D SUPERVISOR CIGAR PROCESSING REVIEW completed Pacemaker Interrogation, Remote (Prof) Reynaldo Raleigh DO INTERROGATION EVAL REMOTE </90 D 1/2/SENIOR SUSTAINABILITY ADVISOR LEAD P completed Schedule Followup Reynaldo Glascoc k DO in 6 mo completed EKG Reynaldo Raleigh DO completed Loop Recorder Interrogation, Remote Reynaldo Raleigh DO INTERROGATION EVALUATION REMOTE </30 D ILR SYS completed ICM Interrogation, Remote (Tech) Reynaldo Raleigh DO INTERROGATION EVAL REMOTE </30 D TECH REVIEW completed Loop Recorder Interrogation, Remote Reynaldo Raleigh DO INTERROGATION EVALUATION REMOTE </30 D ILR SYS completed ICM Interrogation, Remote (Tech) Reynaldo Raleigh DO INTERROGATION EVAL REMOTE </30 D TECH REVIEW completed Loop Recorder Interrogation, Remote Reynaldo Raleigh DO INTERROGATION EVALUATION REMOTE </30 D ILR SYS completed ICM Interrogation, Remote (Tech) Reynaldo Raleigh DO INTERROGATION EVAL REMOTE </30 D TECH REVIEW completed Loop Recorder Interrogation, Remote Reynaldo Raleigh DO INTERROGATION EVALUATION REMOTE </30 D ILR SYS completed ICM Interrogation, Remote (Tech) Reynaldo Raleigh DO INTERROGATION EVAL REMOTE </30 D TECH REVIEW completed Loop Recorder Interrogation, Remote Reynaldo Raleigh DO INTERROGATION EVALUATION REMOTE </30 D ILR SYS completed ICM Interrogation, Remote (Tech) Reynaldo Raleigh DO INTERROGATION EVAL REMOTE </30 D TECH REVIEW completed Schedule Followup Reynaldo Glascoc k DO completed EKG Reynaldo Raleigh DO completed Loop Recorder Interrogation, Remote Reynaldo Raleigh DO INTERROGATION EVALUATION REMOTE </30 D ILR SYS completed ICM Interrogation, Remote (Tech) Reynaldo Raleigh DO INTERROGATION EVAL REMOTE </30 D TECH REVIEW completed Loop Recorder Interrogation, Remote Reynaldo Raleigh DO INTERROGATION EVALUATION REMOTE </30 D ILR SYS completed ICM Interrogation, Remote (Tech) Reynaldo Raleigh DO INTERROGATION EVAL REMOTE </30 D TECH REVIEW completed Loop Recorder Interrogation, Remote Reynaldo Raleigh DO INTERROGATION EVALUATION REMOTE </30 D ILR SYS completed ICM Interrogation, Remote (Tech) Reynaldo Raleigh DO INTERROGATION EVAL REMOTE </30 D TECH REVIEW completed EKG Reynaldo Raleigh DO completed Loop Recorder Interrogation, Remote Reynaldo Raleigh DO INTERROGATION EVALUATION REMOTE </30 D ILR SYS completed ICM Interrogation, Remote (Tech) Reynaldo Raleigh DO INTERROGATION EVAL REMOTE </30 D TECH REVIEW completed Loop Recorder Interrogation, Remote Reynaldo Raleigh DO INTERROGATION EVALUATION REMOTE </30 D ILR SYS completed ICM Interrogation, Remote (Tech) Reynaldo Raleigh DO INTERROGATION EVAL REMOTE </30 D TECH REVIEW completed Loop Recorder Interrogation, Remote Reynaldo Raleigh DO INTERROGATION EVALUATION REMOTE </30 D ILR SYS completed ICM Interrogation, Remote (Tech) Reynaldo Raleigh DO INTERROGATION EVAL REMOTE </30 D TECH REVIEW completed Loop Recorder Interrogation, Remote Reynaldo Raleigh DO INTERROGATION EVALUATION REMOTE </30 D ILR SYS completed ICM Interrogation, Remote (Tech) Reynaldo Raleigh DO INTERROGATION EVAL REMOTE </30 D TECH REVIEW completed Loop Recorder Interrogation, Remote Reynaldo Raleigh DO INTERROGATION EVALUATION REMOTE </30 D ILR SYS completed ICM Interrogation, Remote (Tech) Reynaldo Raleigh DO INTERROGATION EVAL REMOTE </30 D TECH REVIEW completed Loop Recorder Interrogation, Remote Reynaldo Raleigh DO INTERROGATION EVALUATION REMOTE </30 D ILR SYS completed ICM Interrogation, Remote (Tech) Reynaldo Raleigh DO INTERROGATION EVAL REMOTE </30 D TECH REVIEW completed Loop Recorder Interrogation, Remote Reynaldo Raleigh DO INTERROGATION EVALUATION REMOTE </30 D ILR SYS completed ICM Interrogation, Remote (Tech) Reynaldo Raleigh DO INTERROGATION EVAL REMOTE </30 D TECH REVIEW completed Schedule Followup Reynaldo Glascoc k DO completed EKG Reynaldo Raleigh DO completed SNOMED-CT: [id number] Current Medications Documented Reynaldo Raleigh DO completed Loop Recorder Interrogation, Remote Reynaldo Raleigh DO INTERROGATION EVALUATION REMOTE </30 D ILR SYS completed ICM Interrogation, Remote (Tech) Reynaldo Raleigh DO INTERROGATION EVAL REMOTE </30 D TECH REVIEW completed Loop Recorder Interrogation, Remote Reynaldo Raleigh DO INTERROGATION EVALUATION REMOTE </30 D ILR SYS completed ICM Interrogation, Remote (Tech) Reynaldo Raleigh DO INTERROGATION EVAL REMOTE </30 D TECH REVIEW completed Loop Recorder Interrogation, Remote Reynaldo Raleigh DO INTERROGATION EVALUATION REMOTE </30 D ILR SYS completed ICM Interrogation, Remote (Tech) Reynaldo Raleigh DO INTERROGATION EVAL REMOTE </30 D TECH REVIEW completed Schedule Followup Reynaldo Glascoc k DO in two months completed EKG Reynaldo Raleigh DO completed SNOMED-CT: [id number] Current Medications Documented Reynaldo Raleigh DO completed Loop Recorder Interrogation, Remote Reynaldo Raleigh DO INTERROGATION EVALUATION REMOTE </30 D ILR SYS completed ICM Interrogation, Remote (Tech) Reynaldo Raleigh DO INTERROGATION EVAL REMOTE </30 D TECH REVIEW completed Loop Recorder Interrogation, Remote Reynaldo Raleigh DO INTERROGATION EVALUATION REMOTE </30 D ILR SYS completed ICM Interrogation, Remote (Tech) Reynaldo Raleigh DO INTERROGATION EVAL REMOTE </30 D TECH REVIEW completed Loop Recorder Interrogation, Remote Reynaldo Raleigh DO INTERROGATION EVALUATION REMOTE </30 D ILR SYS completed ICM Interrogation, Remote (Tech) Reynaldo Raleigh DO INTERROGATION EVAL REMOTE </30 D TECH REVIEW completed Loop Recorder Interrogation, Remote Reynaldo Raleigh DO INTERROGATION EVALUATION REMOTE </30 D ILR SYS completed ICM Interrogation, Remote (Tech) Reynaldo Raleigh DO INTERROGATION EVAL REMOTE </30 D TECH REVIEW completed Loop Recorder Interrogation, Remote Reynaldo Raleigh DO INTERROGATION EVALUATION REMOTE </30 D ILR SYS completed ICM Interrogation, Remote (Tech) Reynaldo Raleigh DO INTERROGATION EVAL REMOTE </30 D TECH REVIEW completed Loop Recorder Interrogation, Remote Reynaldo Raleigh DO INTERROGATION EVALUATION REMOTE </30 D ILR SYS completed ICM Interrogation, Remote (Tech) Reynaldo Raleigh DO INTERROGATION EVAL REMOTE </30 D TECH REVIEW completed EKG Reynaldo Raleigh DO completed SNOMED-CT: [id number] Current Medications Documented Reynaldo Raleigh DO completed Loop Recorder Interrogation, Remote Reynaldo Raleigh DO INTERROGATION EVALUATION REMOTE </30 D ILR SYS completed ICM Interrogation, Remote (Tech) Reynaldo Raleigh DO INTERROGATION EVAL REMOTE </30 D TECH REVIEW completed Loop Recorder Interrogation, Remote Reynaldo Raleigh DO INTERROGATION EVALUATION REMOTE </30 D ILR SYS completed ICM Interrogation, Remote (Tech) Reynaldo Raleigh DO INTERROGATION EVAL REMOTE </30 D TECH REVIEW completed SNOMED-CT: [id number] Current Medications Documented Reynaldo Raleigh DO completed EKG Reynaldo Raleigh DO completed Loop Recorder Interrogation, Remote Reynaldo Raleigh DO INTERROGATION EVALUATION REMOTE </30 D ILR SYS completed ICM Interrogation, Remote (Tech) Reynaldo Raleigh DO INTERROGATION EVAL REMOTE </30 D TECH REVIEW completed Loop Recorder Interrogation, Remote Reynaldo Raleigh DO INTERROGATION EVALUATION REMOTE </30 D ILR SYS completed ICM Interrogation, Remote (Tech) Reynaldo Flannery DO INTERROGATION EVAL REMOTE </30 D TECH REVIEW completed SNOMED-CT: [id number] Current Medications Documented Reynaldo Flannery DO completed EKG Reynaldo Flannery DO completed
== END 2024-04-26 11:46 | disposition home or self-care (01) ==
PROVIDERS: PCP Family Medicine; Visit Provider Family Medicine
DX: J90 Pleural effusion, not elsewhere classified (principal); I50.9 Heart failure, unspecified; E87.6 Hypokalemia
CPT/HCPCS: 71046

== ENCOUNTER 2024-05-06 10:00 | Outpatient (CLI) | payer MEDICARE, SELFPAY ==
[2024-04-29 11:06] VITALS: BMI 25.2
--- NOTE | 2024-04-29 11:06 | PC.NURSE ---
Pre Radiology instructions Report to the Imaging/Radiology Entrance on date _05/06/24 ____ at time __10:00am for procedure Time: 10:30am____ YOU MAY BE MONITORED AT HOSPITAL FOR UP TO 4 HOURS AFTER YOUR PROCEDURE. A visitor will be allowed to accompany the patient into the hospital. You and your visitor will be asked to self-screen and do not enter if you have any COVID symptoms. A mask is OPTIONAL within the hospital. Patients are to have no food or drink 6 hours prior to procedure time Driving will be restricted after the procedure, you must have a person to drive you home. You will be taken to radiology area for procedure. When the procedure is completed, you will be taken to outpatient where you will be monitored for several hours. You may have one visitor in this area. Other than holding anti-coagulants, patient may take other medication(s) as scheduled. Prior to your appointment date patients are instructed to hold anti-coagulants after discussing with ordering provider to stop. If unable to discontinue anti-coagulants please notify radiologist. ? No aspirin or warfarin (Coumadin) for 7 days prior to the procedure. Date of last dose is 04/28/24 ? No clopidogrel (Plavix), ticagrelor (Brilinta), prasugrel (Effient) or dabigatran (Pradaxa) for 5 days prior to the procedure. ? No rivaroxaban (Xarelto), apixaban (Eliquis), dipyridamole (Aggrenox or Persantine) or cilostazol (Pletal) for 2 days prior to the procedure.Date of last dose is 05/03/24 Please leave all valuables, including medications, at home the day of procedure. The hospital will not accept responsibility for valuables. Wear comfortable, loose fitting clothing.? Follow any additional instructions given to you from ordering provider. Telephone instructions given to ___Daughter Chelle Jara and asked if any additional questions and then verbalized understanding. Patient advised to call scheduling provider office or registration scheduling [phone] if any additional questions.
--- NOTE | ~2024-05-06 | US_ITS ---
EXAMINATION: US thoracentesis DATE: 05/06/2024 11:07 INDICATION: pleural effusion TECHNIQUE: The procedure and its risks, benefits, and alternatives were discussed with the patient. P otential risks discussed included bleeding, infection, and pneumothorax. The patient understood the r isks and agreed to proceed. The skin was prepped and draped in sterile fashion. 1% lidocaine was used for local anesthesia. Under ultrasound guidance, a 5 Fr catheter with trochar was advanced into the left pleural effusion. Fluid was aspirated. The catheter was removed, and a dressing was applied. The re were no immediate complications. FINDINGS: Ultrasound images demonstrate a left pleural effusion and the catheter within the fluid. IMPRESSION: 1. Successful ultrasound-guided thoracentesis yielding 950 mL of xochitl-colored fluid. Reviewed, dictated and finalized at location A. EY OPERATOR
--- NOTE | ~2024-05-06 | XR_ITS ---
EXAMINATION: [id number] DATE: 05/06/2024 10:55 INDICATION: Left pleural effusion status post thoracentesis. TECHNIQUE: A single frontal view of the chest was obtained. COMPARISON: Chest 2 views 04/26/2024 FINDINGS: There is mild atelectasis in the lower lung zones. There is a small right pleural effusion. No pneumothorax. Cardiomegaly is noted. There is a left chest wall pacer with leads in the right atr ium and right ventricle. IMPRESSION: 1. Mild atelectasis in the lower lung zones. 2. Small right pleural effusion. 3. Cardiomegaly. Reviewed, dictated and finalized at location A. DOWN CHECKER
--- OUTSIDE RECORDS SUMMARY | 2024-05-06 10:26 | XMS_ITS | Clinical Summary ---
Author Organization [facility] Address [address] [place] [address] Care Team Providers Care Security Software Engineer Name Role Phone Reynaldo Flannery DO Unavailable [phone] Guanakito Holland MD Unavailable [phone] Jaleel Mcgovern MD Primary Care Provider [phone] Allergies Active Allergy Reactions Criticality Noted Date Comments Amiodarone Stomach upset Low 08/29/2022 Loss of appetite Hard time focusing Headaches Beta-Blockers (Beta-Adrenergic Blocking Agts) Other (See comments) Low 07/29/2018 severe heart pain Codeine Rash,Vomiting,Halluc julianne tions,Nausea only Low 09/19/2015 Reaction: Rash, , Reaction: rash, throw up, hallucinate, , , Reaction: Nausea, Vomiting, Other reaction(s): N/V, rash Diltiazem Itching Low [...] (heart failure with re duced ejection fraction) ([facility]) 08/29/2022 Assessment & Plan (08/29/2022 [...] is to continue close follow-up with local director of safety and therefore would like to discuss with [...] needed. Assessment & Plan (03/12/2017 2:39 PM BUSHER HELPER): Patient has Xanax for p.r.n. use. She [...] his passing. She did see someone at [facility] for awhile. We discussed Senior renewal. She declines at the present time. She would like to continue to monitor her panic attacks and was instructed to use Xanax as previously prescribed on an as needed basis. 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 Normal Cardiolite in August 2014. Assessment & Plan (08/29/2022 9:25 PM CDT): Denies any chest pain or anginal equivalent. Recent drop in her LVEF to 20% from 40% with unclear etiology. Continue aspirin, metoprolol and Crestor. Would like to discuss with her local director of safety about additional ischemic workup as she plans [...] given Assessment & Plan (03/12/2017 2:37 PM BUSHER HELPER): Blood pressure is slightly elevated during office [...] is less than 70. Will discuss local director of safety about statin therapy and possible PCSK9 inhibitor. Assessment & Plan (07/29/2018 4:47 AM CDT): Not on statin Osteoarthritis 01/20/2013 Overview (06/27/2016): Osteoarthritis Resolved Problems Problem Noted Date Diagnosed Date Resolved Date Chest pain 09/29/2018 12/24/2018 Hypertensive urgency 09/29/2018 019 Anxiety 09/29/2018 12/24/2018 Sick sinus syndrome ([facility]/HCC) 09/14/2018 02/13/2024 Overview (04/19/2019): Status post Biotronik [...] Atrial fibrillation with rap id ventricular response ([facility]) 09/25/2017 02/01/2020 Assessment & Plan (07/29/2018 4:51 AM CDT): Continue with amiodarone drip. Patient completed a dose of digoxin. Cardiology consult in a.m. Will obtain echo cardiac in a.m. Telemetry monitoring Restart Eliquis Cough 03/12/2017 06/24/2017 Assessment & Plan (03/12/2017 2:39 PM BUSHER HELPER): Influenza A negative influenza B negative. Sore throat 03/12/2017 06/24/2017 Assessment & Plan (03/12/2017 2:39 PM BUSHER HELPER): Rapid strep negative. Viral URI with cough 03/12/2017 018 Assessment & Plan (03/12/2017 2:40 PM BUSHER HELPER): Humidification, fluids, and rest were recommended. Patient [...] any ill side effects. Paroxysmal atrial fibrillation ([facility]) 12/25/2016 02/13/2024 Assessment & Plan (08/29/2022 9:26 PM CDT): In normal rhythm today. Continue metoprolol and Eliquis. Assessment & Plan (07/23/2019 11:05 AM CDT): Routinely follows-up with at [facility]. NSR today in office. Cnt. Eliquis for anticoagulation Assessment & Plan (03/12/2017 2:37 PM BUSHER HELPER): Patient will continue routine follow-up with Dr. Pennie pierre and local director of safety as recommended. She reports compliance with her [...] Encounters Date Type Department Care Team Description 05/04/2024 9:45 AM BUSHER HELPER Ancillary Procedure [facility] [address] [place] [address] [place] [id number] Paroxysmal atrial fibrillation (CMS/HCC) (HCC); Sick sinus syndrome (CMS/HCC) (HCC) 04/16/2024 11:00 AM BUSHER HELPER Office Visit [facility] Cardiology at [address] [place] [address] Mannie Hernandez MD Coronary artery disease involving oneida coronary artery of oneida heart without angina pectoris (Primary Dx); History of coronary artery stent placement; Cardiac pacemaker in situ; Permanent atrial fibrillation (CMS/HCC) (HCC) 03/08/2024 11:15 AM BUSHER HELPER Lab [facility] Outpatient Lab at [address] [address] Hyperlipidemia (Primary Dx); Hypertension 03/08/2024 11:13 AM BUSHER HELPER - 03/08/2024 11:59 PM BUSHER HELPER Hospital Encounter [facility] [address] [place] [address] Cardiac pacemaker in situ; HFrEF (heart failure with reduced ejection fraction) (CMS/HCC) (HCC); Permanent atrial fibrillation (CMS/HCC) (HCC) Discharge Disposition: Discharge to home or self care 02/13/2024 11:00 AM BUSHER HELPER Office Visit [facility] Cardiology at [address] [place] [address] Mannie Hrenandez MD Cardiac pacemaker in situ (Primary Dx); HFrEF (heart failure with reduced ejection fraction) (CMS/HCC) (HCC); Permanent atrial fibrillation (CMS/HCC) (HCC) 02/04/2024 Telephone [facility] [address] [place] [address] Mannie Hernandez MD Shortness of Breath; Joint Swelling from Last 3 Months Immunizations Name Administration [...] o f : Angina Diabetes Sister 1 [place] Heart attack Sister 1 [place] Heart disease Sister 1 [place] Other Sister 3 DM, CAD; Other Sister 4 Valve Replaceme nt; Relation Name Status Comments Brother 1 68 Brother 2 79 Child Daughter Chelle Jara Father Derek (Age 79) Maternal Grandmother Grandma Mother (Age 93) Sister 1 [place] Alive Sister 2 Alive Sister 3 Sister [...] or relatives? Once a week 08/12/2022 Attends [employer] Not on file 08/12 Active Member [...] on file Legal Sex Female 11:18 AM BUSHER HELPER Gender Identity Female 10/09/2022 9:08 AM CDT Sexual Orientation Choose not to disclose 2022 9:08 AM CDT Obstetrics History Para Term AB IAB SAB Ectopic Multiple Livin g Live Births 6 6 6 Date Outcome GA Total Labor Labor/3rd Weight Sex Type Anes PTL Sabi A1 A5 Name Clin Term Term Term Term Term Term Last Filed Vital Signs Vital Sign Reading Time Taken Comments Blood Pressure 112/72 04/16/2024 10:42 AM BUSHER HELPER Pulse 79 04/16/2024 10:42 AM BUSHER HELPER Temperature 36.4 C (97.6 F) 10/24/2022 11:50 AM CDT Respiratory Rate 18 10/24/2022 11:50 AM CDT Oxygen Saturation 95% 04/16/2024 10:42 AM BUSHER HELPER Inhaled Oxygen Concentration - - Weight 61.7 kg (136 lb) 04/16/2024 10:42 AM BUSHER HELPER Height 154.9 cm (5' 1 ) 04/16/2024 10:42 AM BUSHER HELPER Body Mass Index 25.7 04/16/2024 10:42 AM BUSHER HELPER Plan of Treatment Health Maintenance Due Date Last Done Comments DTaP/Tdap/Td Vaccine (1 - Tdap) 1951 Hepatitis B Screening 1958 Zoster Vaccine (1 of 2) 1990 Pneumococcal vaccine 65+ (1 of 1 - PCV) 2005 Osteoporosis Screening-Bone Density Scan 11/14/2016 11/14/2014, 11/06/2012 Well Visit 65+ 01/30/2021 01/31/2020, 10/0 05/2018, 06/24/2017 Breast Cancer Screening-Mammogram 04/06/2021 021, [...] 05/25/2019, 01/06/2017 Medical Devices Implanted Type Area Retail Operations Specialist Device Identifier Shelf Expiration Date Model / Serial / Lot [employer] [id number] Endocardial Pacing Lead Promri Solia Jt 45 - [id number] - [id number] Implanted:Qty: 1 on 07/29/2018 by Guanakito Holland MD at [facility] Lead [employer] 12/22/2019 [id number] / [id number] / [employer] [id number] Endocardial Pacing Lead Promri Solia T 53 - [id number] - [id number] Implanted:Qty: 1 on 07/29/2018 by Guanakito Holland MD at [facility] Lead [employer] 12/22/2019 [id number] / [id number] / [employer] [id number] Solia S 45cm Bipolar Active Fixation Lead Pacing Steroid Eluting - [id number] - [id number] Implanted:Qty: 1 on 09/14/2018 by Reynaldo Flannery DO at [facility] Lead [employer] [id number] 05/21/2020 [id number] / [id number] / [id number] [employer] [id number] Edora Promri [id number] 1 Chamber Rate Adaptive Unipolar Bipolar - [id number] - [id number] Implanted:Qty: 1 on 07/29/2018 by Guanakito Holland MD at [facility] Pacemaker [employer] 11/22/2019 [id number] / [id number] / Medtronic Cardiac Rhythm Mgmt [id number] 2.7x2.5in Medium Envelope Absorbable Polyarylate Minocycline - [id number] Implanted:Qty: 1 on 09/14/2018 by Reynaldo Flannery DO at [facility] [employer] 10/21/2018 [id number] / / [id number] Chinchilla Vascular Perclose 6fr Vascular Closure [id number] - [id number] Implanted:Qty: 1 on 08/03/2022 at [facility] [employer] 03/23/2024 [id number] / / [id number] Procedures Procedure Name Priority Date/Time Associated Diagnosis Comments EGFR Routine 03/08/2024 11:13 AM BUSHER HELPER Cardiac pacemaker in situ HFrEF (heart failure with reduced ejection fraction) (CMS/HCC) (HCC) Permanent atrial fibrillation (CMS/HCC) (HCC) BASIC METABOLIC PANEL Routine 03/08/2024 11:13 AM BUSHER HELPER Cardiac pacemaker in situ HFrEF (heart failure with reduced ejection fraction) (CMS/HCC) (HCC) Permanent atrial fibrillation (CMS/HCC) (HCC) SCREENING MAMMOGRAM BILATERAL W OSCAR Schedule Routine, Read Routine (OP Routine) 04/06/2020 1:21 PM BUSHER HELPER Visit for screening mammogram Essential hypertension Mixed hyperlipidemia COLONOSCOPY Routine 05/26/2019 HM DEXA SCAN Routine 11/14/2014 from Last 3 Months or Most Recently Relevant to Health Maintenance Results * eGFR (03/08/2024 11:13 AM BUSHER HELPER) eGFR 68 >=60 mL/min/1. 73 m2 Comment: Interpretive Data Reference Interval Normal >/= 90 mL/min/1.73m2 Mildly decreased* 60 - 89 mL/min/1.73m2 Mildly to moderately decreased 45 - 59 mL/min/1.73m2 Moderately to severely decreased 30 - 44 mL/min/1.73m2 Severely decreased 15 - 29 mL/min/1.73m2 Kidney Failure < 15 mL/min/1.73m2 *Relative to young adult level Estimated glomerular [...] reviewed 2021. Blood 03/08/2024 11:1 3 AM BUSHER HELPER 03/08/2024 3:49 PM BUSHER HELPER us Mannie Hernandez MD LAB BLOOD ORDERABLES Fin al Result [facility] [address] Department [place] [address] * Basic metabolic panel (03/08/2024 11:13 AM BUSHER HELPER) Sodium 143 135 - 145 mmol/L Potassium, pl 3.5 3.3 - 4.9 mmol/L [facility] Chloride 103 97 - 110 mmol/L [facility] CH CO2 30 22 - 32 mmol/L [facility] Anion gap 10 2 - 15 mmol/L [facility] 12 6 - 25 mg/dL [facility] Creatinine 0.85 0.60 - 1.10 mg/dL [facility] Glucose 135 70 - 199 mg/dL [facility] Comment: Interpretive Data Fasting glucose >/= 126 mg/dl is diagnostic for diabetes. Fasting is defined as no caloric intake [...] mg/dL [facility] Blood 03/08/2024 11:1 3 AM BUSHER HELPER 03/08/2024 3:49 PM BUSHER HELPER Mannie Hernandez MD LAB BLOOD ORDERABLES Fin al Result [facility] [address] Department [place] [address] * Screening Mammogram Bilateral W Oscar (04/06/2020 1:21 PM BUSHER HELPER) Anatomical Region Laterality Modality Breast Bilateral Mammography 04/06/2020 2:09 PM BUSHER HELPER Impressions 04/06/2020 3:13 PM BUSHER HELPER There is no mammographic evidence of malignancy. A 1 year screening mammogram is recommended. BI-RADS: 2 - Benign. The patient will be entered into a reminder system with a target due date of 1 year for her next mammogram. Electronically signed by: Micaela Jang MD Narrative 04/06/2020 3:13 PM BUSHER HELPER EXAMINATION: SCREENING MAMMOGRAM BILATERAL W OSCAR ORDERING HEALTHCARE PROVIDER: RYAN CASTREJON HISTORY: Routine screening mammography. COMPARISON: 11/06/2012 TECHNIQUE: CC and MLO views of the bilateral breasts were obtained with digital technique using breast tomosynthesis with C view. Computer aided detection was utilized. FINDINGS: DENSITY: There are scattered fibroglandular elements in the bilateral breasts. BREASTS: There are benign vascular calcifications. There are scattered calcifications within the bilateral breasts. There are no suspicious masses, suspicious calcifications, or [...] Recently Relevant to Health Maintenance Insurance MEDICARE [facility] MEDICARE [facility] Member Subscriber Plan / Payer (Ef fective 2020-Present) Name:Abena Giron Relation to Subscriber:Self Name:GironAbena silver Payer ID:[id number] (NAIC) Group ID:[id number] Type: OTHER Address: [place] [id number] [facility] MEDICARE SUPPLEMENT MEDICARE [facility] MEDICARE SUPPLEMENT MEDICARE [facility] [employer] [place] Advance Directives For more information, please contact: [phone] * LIMITED - No CPR (Latest Code [...] 11:36 AM 10/19/2019 7:30 PM Care Teams Security Software Engineer Relationship Specialty Start Date End Date Jaleel Mcgovern MD PCP - General Family Practice 07/18/22 Reynaldo Flannery DO Consulting Physician Cardiology 09/26/17 Guanakito Holland MD Consulting Physician Cardiovascular Disease 07/29/18
--- OUTSIDE RECORDS SUMMARY | 2024-05-06 10:26 | XMS_ITS | Referral Summary ---
Author Organization [facility] Address [address] [place] [address] Care Team Providers Care Senior Lead Developer Name Role Phone Reynaldo Flannery DO Unavailable [phone] Guanakito Holland MD Unavailable [phone] Jaleel Mcgovern MD Primary Care Provider [phone] Encounters Date Type Department Care Team Description 05/04/2024 9:45 AM FLATWORK TIER Ancillary Procedure [facility] Cardiology [address] [place] [address] [place] [id number] Paroxysmal atrial fibrillation (CMS/HCC) (HCC); Sick sinus syndrome (CMS/HCC) (HCC) 04/16/2024 11:00 AM FLATWORK TIER Office Visit [facility] Cardiology at [address] [place] [address] Mannie Hernandez MD Coronary artery disease involving [place] coronary artery of [place] heart without angina pectoris (Primary Dx); History of coronary artery stent placement; Cardiac pacemaker in situ; Permanent atrial fibrillation (CMS/HCC) (HCC) 03/08/2024 11:13 AM FLATWORK TIER - 03/08/2024 11:59 PM FLATWORK TIER Hospital Encounter [facility] [id number] [place] [id number] Cardiac pacemaker in situ; HFrEF (heart failure with reduced ejection fraction) (CMS/HCC) ([facility]); Permanent atrial fibrillation (CMS/HCC) ([facility]) Discharge Disposition: Discharge to home or self care 03/08/2024 11:15 AM FLATWORK TIER Lab [facility] Outpatient Lab at [address] [address] Hyperlipidemia (Primary Dx); Hypertension 02/13/2024 11:00 AM FLATWORK TIER Office Visit [facility] Cardiology at [address] [place] [phone] Mannie Hernandez MD Cardiac pacemaker in situ (Primary Dx); HFrEF (heart failure with reduced ejection fraction) (CMS/HCC) ([facility]); Permanent atrial fibrillation (CMS/HCC) ([facility]) 02/04/2024 Telephone [facility] Medical [facility] Cardiology [address] [place] [address] Mannie Hernandez MD Shortness of Breath; Joint Swelling from Last 3 Months Allergies Active Allergy [...] by oral route every day 90 3 09/14/201 6 Active cyanocobalamin (Vitamin B-12) 100 mcg [...] tablet 3 4 02/27/20 25 Active sacubitriL-valsar sykse (ENTRESTO) 24-26 mg tabletIndications :chronic heart failure Take 1 tablet by mouth 2 (two) times a day 180 tablet 3 4 Active Active Problems Problem Noted Date Diagnosed Date Permanent atrial fibrillation ([facility]) 02/13/20 24 HFrEF (heart failure with re duced ejection fraction) ([facility]) 08/29/2022 Assessment & Plan (08/29/2022 9:31 [...] is to continue close follow-up with local garage supervisor and therefore would like to discuss with [...] needed. Assessment & Plan (03/12/2017 2:39 PM FLATWORK TIER): Patient has Xanax for p.r.n. use. She [...] his passing. [facility]. We discussed Senior renewal. She declines at the present time. She would like to continue to monitor her panic attacks and was instructed to use Xanax as previously prescribed on an as needed basis. Coronary artery disease invo lving [place] coronary artery of [place] heart 12/25/2016 Overview (04/19/2019): Status post PCI in June 2013 (RL). Normal Cardiolite in August 2014. Assessment & Plan (08/29/2022 9:25 PM CDT): Denies any chest pain or anginal equivalent. Recent drop in her LVEF to 20% from 40% with unclear etiology. Continue aspirin, metoprolol and Crestor. Would like to discuss with her local garage supervisor about additional ischemic workup as she plans [...] given Assessment & Plan (03/12/2017 2:37 PM FLATWORK TIER): Blood pressure is slightly elevated during office [...] is less than 70. Will discuss local garage supervisor about statin therapy and possible PCSK9 inhibitor. Assessment & Plan (07/29/2018 4:47 AM CDT): Not on statin Osteoarthritis 01/20/2013 Overview (06/27/2016): Osteoarthritis Resolved Problems Problem Noted Date Diagnosed Date Resolved Date Chest pain 09/29/2018 12/24/2018 Hypertensive urgency 09/29/2018 019 Anxiety 09/29/2018 12/24/2018 Sick sinus syndrome ([facility]) 09/14/2018 02/13/2024 Overview (04/19/2019): Status post Biotronik Edora 8 DRT on 29 Jul 2018 (RL). New atrial lead on 14 September 2018 (DG). Diarrhea of infectious origin 07/29/2018 12/24/2018 NSTEMI (non-ST elevated myoc ardial infarction) ([facility]) 07/29/2018 02/01/2020 Assessment & Plan (07/29/2018 4:52 AM CDT): Patient currently in AFib with RVR. Suspect elevated troponins are due to demand ischemia. Will continue on telemetry monitoring Trend troponins Repeat EKG in a.m. Cardiology consult Keep the patient NPO Patient currently on Eliquis oral anticoagulation Patient denies any chest pain Atrial fibrillation with rap id ventricular response ([facility]) 09/25/2017 02/01/2020 Assessment & Plan (07/29/2018 4:51 AM CDT): Continue with amiodarone drip. Patient completed a dose of digoxin. Cardiology consult in a.m. Will obtain echo cardiac in a.m. Telemetry monitoring Restart Eliquis Cough 03/12/2017 06/24/2017 Assessment & Plan (03/12/2017 2:39 PM FLATWORK TIER): Influenza A negative influenza B negative. Sore throat 03/12/2017 06/24/2017 Assessment & Plan (03/12/2017 2:39 PM FLATWORK TIER): Rapid strep negative. Viral URI with cough 03/12/2017 018 Assessment & Plan (03/12/2017 2:40 PM FLATWORK TIER): Humidification, fluids, and rest were recommended. Patient [...] any ill side effects. Paroxysmal atrial fibrillation ([facility]) 12/25/2016 02/13/2024 Assessment & Plan (08/29/2022 9:26 PM CDT): In normal rhythm today. Continue metoprolol and Eliquis. Assessment & Plan (07/23/2019 11:05 AM CDT): Routinely follows-up with at [facility] today in office. Cnt. Eliquis for anticoagulation Assessment & Plan (03/12/2017 2:37 PM FLATWORK TIER): Patient will continue routine follow-up with Dr. Pennie pierre and local garage supervisor as recommended. She reports compliance with her [...] 0 08/23/2022 [facility] - Occupational Stress Questionnaire Answer Date [...] on file Legal Sex Female 11:18 AM FLATWORK TIER Gender Identity Female 10/09/2022 9:08 AM CDT Sexual Orientation Choose not to disclose 2022 9:08 AM CDT Last Filed Vital Signs Vital Sign Reading Time Taken Comments Blood Pressure 112/72 04/16/2024 10:42 AM FLATWORK TIER Pulse 79 04/16/2024 10:42 AM FLATWORK TIER Temperature 36.4 C (97.6 F) 10/24/2022 11:50 AM CDT Respiratory Rate 18 10/24/2022 11:50 AM CDT Oxygen Saturation 95% 04/16/2024 10:42 AM FLATWORK TIER Inhaled Oxygen Concentration - - Weight 61.7 kg (136 lb) 04/16/2024 10:42 AM FLATWORK TIER Height 154.9 cm (5' 1 ) 04/16/2024 10:42 AM FLATWORK TIER Body Mass Index 25.7 04/16/2024 10:42 AM FLATWORK TIER Plan of Treatment Not on file Medical Devices Implanted Type Area Training Program Assistant Device Identifier Shelf Expiration Date Model / Serial / Lot Biotronik Inc [id number] Endocardial Pacing Lead Promri Solia Jt 45 - [id number] - [id number] Implanted:Qty: 1 on 07/29/2018 by Guanakito Holland MD at [facility] Lead [employer] 12/22/2019 [id number] / [id number] / [employer] [id number] Endocardial Pacing Lead Promri Solia T 53 - [id number] - [id number] Implanted:Qty: 1 on 07/29/2018 by Guanakito Holland MD at [facility] Lead [employer] 12/22/2019 [id number] / [id number] / Bi[employer] Inc [id number] Solia S 45cm Bipolar Active Fixation Lead Pacing Steroid Eluting - [id number] - [id number] Implanted:Qty: 1 on 09/14/2018 by Reynaldo Flannery DO at [facility] Lead [employer] Inc [id number] 05/21/2020 [id number] / [id number] / [id number] Bi[employer] Inc [id number] Edora Promri 83z37o4.5mm 1 Chamber Rate Adaptive Unipolar Bipolar - [id number] - [id number] Implanted:Qty: 1 on 07/29/2018 by Guanakito Holland MD at [facility] Pacemaker [employer] Inc 11/22/2019 [id number] / [id number] / Medtronic Cardiac Rhythm Mgmt [id number] Tyrx 2.7x2.5in Medium Envelope Absorbable Polyarylate Minocycline - [id number] Implanted:Qty: 1 on 09/14/2018 by Reynaldo Flannery DO at [facility] Med[employer] Inc 10/21/2018 [id number] / / [id number] Chinchilla V[employer] Perclose 6fr Vascular Closure 24234-49 - [id number] Implanted:Qty: 1 on 08/03/2022 at [facility] [employer] 03/23/2024 1267 3-03 / / [id number] Procedures Procedure Name Priority Date/Time Associated Diagnosis Comments EGFR Routine 03/08/2024 11:13 AM FLATWORK TIER Cardiac pacemaker in situ HFrEF (heart failure with reduced ejection fraction) (CMS/HCC) (HCC) Permanent atrial fibrillation (CMS/HCC) (HCC) BASIC METABOLIC PANEL Routine 03/08/2024 11:13 AM FLATWORK TIER Cardiac pacemaker in situ HFrEF (heart failure with reduced ejection fraction) (CMS/HCC) (HCC) Permanent atrial fibrillation (CMS/HCC) (HCC) SCREENING MAMMOGRAM BILATERAL W OSCAR Schedule Routine, Read Routine (OP Routine) 04/06/2020 1:21 PM FLATWORK TIER Visit for screening mammogram Essential hypertension Mixed hyperlipidemia COLONOSCOPY Routine 05/26/2019 HM DEXA SCAN Routine 11/14/2014 from Last 3 Months or Most Recently Relevant to Health Maintenance Results * eGFR (03/08/2024 11:13 AM FLATWORK TIER) eGFR 68 >=60 mL/min/1. 73 m2 Comment: [...] reviewed 2021. Blood 03/08/2024 11:1 3 AM FLATWORK TIER 03/08/2024 3:49 PM FLATWORK TIER Mannie Hernandez MD LAB BLOOD ORDERABLES Fin al Result [facility] [address] Department [place] [address] * Basic metabolic panel (03/08/2024 11:13 AM FLATWORK TIER) Sodium 143 135 - 145 mmol/L Potassium, pl 3.5 3.3 - 4.9 mmol/L CERNER Chloride 103 97 - 110 mmol/L CERNER CH CO2 30 22 - 32 mmol/L CERNER CH Anion gap 10 2 - 15 mmol/L CERNER CH BUN 12 6 - 25 mg/dL CERNER CH Creatinine 0.85 0.60 - 1.10 mg/dL CERNER Glucose 135 70 - 199 mg/dL ANDREW Comment: Interpretive Data Fasting glucose >/= 126 [...] Calcium 9.3 8.5 - 10.3 mg/dL ANDREW Blood 03/08/2024 11:1 3 AM FLATWORK TIER 03/08/2024 3:49 PM FLATWORK TIER us Mannie Hernandez MD LAB BLOOD ORDERABLES Fin al Result Performing Organization Address City/State/[facility] Co de Phone Number [facility] [address] [place] [address] * Screening Mammogram Bilateral W Oscar (04/06/2020 1:21 PM FLATWORK TIER) Anatomical Region Laterality Modality Breast Bilateral Mammography 04/06/2020 2:09 PM FLATWORK TIER Impressions 04/06/2020 3:13 PM FLATWORK TIER There is no mammographic evidence of malignancy. A 1 year screening mammogram is recommended. BI-RADS: 2 - Benign. The patient will be entered into a reminder system with a target due date of 1 year for her next mammogram. Electronically signed by: Micaela Jang MD Narrative 04/06/2020 3:13 PM FLATWORK TIER EXAMINATION: SCREENING MAMMOGRAM BILATERAL W OSCAR ORDERING [...] Recently Relevant to Health Maintenance Insurance MEDICARE [facility] MEDICARE [facility] MEDICARE SUPPLEMENT MEDICARE [facility] MEDICARE SUPPLEMENT MEDICARE [facility] Advance Directives For more information, please contact: [phone] * LIMITED - No CPR (Latest Code [...] 11:36 AM 10/19/2019 7:30 PM Care Teams Senior Lead Developer Relationship Specialty Start Date End Date Jaleel Mcgovern MD PCP - General Family Practice 07/18/22 Reynaldo Flannery DO Consulting Physician Cardiology 09/26/17 Guanakito Holland MD Consulting Physician Cardiovascular Disease 07/29/18
--- OUTSIDE RECORDS SUMMARY | 2024-05-06 10:26 | XMS_ITS | Encounter Summary ---
Author Organization [facility] Healthcare Address [address] [place] [address] Care Team Providers Care Rabbet Operator Name Role Phone Reynaldo Flannery DO Unavailable [phone] Guanakito Holland MD Unavailable [phone] Jaleel Mcgovern MD Primary Care Provider [phone] Encounter Details Date Type Department Care Team (Late st Contact Info) Description 08/12/2022 Telephone [facility] Physical Medicine and Rehabilitation [address] [place] [address] Kimberly Gibbons, CLAIM REP Social History Tobacco Use Types Packs/Day Years [...] Date Recorded PHQ-2 Total Score 0 08/12/2022 [facility] Occupat ional Health - Occupational Stress [...] on file Legal Sex Female 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 Patient is currently at [facility] . The patient is being referred and [...] Payor Source: Primary: Medicare A&B Secondary:Policy number: [id number] Case discussed with Dr. Nena Oneal on [...] Use: Not on file Patient's Preferred Language: Panamanian Cultural Requests During Hospitalization: none conveyed Acute [...] DAPT who presents after receiving TNK at [facility] as a thrombectomy page. Per the patient's family at bedside, the patient was having lunch with one of her daughters when her daughter noticed that she started leaning towards the right. She subsequently became mute and developed a left gaze preference. Her last known normal was 1305. She was[facility] to [facility], there her NIHSS was reportedly a [address] physician[address] Dr. Gomez evaluated the patient by telestroke and recommended a CTH + CTA head and neck. She had a hyperdense left MCA sign on CTH and a left M1 occlusion on CTA. She was a GO for TNK and received the drug at 1423.She was then transferred to [facility] for thrombectomy evaluation. On arrival her [...] DAPT who presents after receiving TNK at [facility] as a thrombectomy page. The patient [...] a 82y/o female with PMH of CAD, WI, SSS s/p Biotronik pacemaker, Atrial fibrillation (previously [...] BP of 68/31. She was taken to [facility] for further evaluation as a Code [place]. [...] of TNK at 14:28 and transferred to [facility] ED for mechanical thrombectomy evaluation. Upon arrival to [facility] ED her vital signs were: HR [...] RA lead revision on 09/14/18 done at [facility]), non-morbid obesity (BMI 30), GENNY non compliant with CPAP, PAD and carotid artery stenosis who presented to [facility] on 08/03/22 with R si ded [...] their arrival. She was initially taken to [facility] to evaluation for stroke. Her BP's improved to 109/[address] Head showed a large hyperdense MCA without hemorrhage, then subsequent CTA Head/Neck showed complete occlusion of theM1 segment of the L MCA. There were also carotid stenoses in the proximal LICA (80%) and proximal SKYLAR (50%). Ms Giron was then transferred to [facility] for tPA and thrombectomy. Ms Giron had an WI in 2013 requiring JOI to mid LCx performed at [facility]. Subsequently shedeveloped atrial fibrillation and tachy-hailey [...] (Dr. Hernandez on 07/18/22): LD Entresto BID, [place] 25, and Lasix 20 daily. - recommend [...] woman with past medical history of CAD, WI, SSS s/p Biotronikpacemaker, Atrial fibrillation (previously on [...] Work-up: - Monitor on telemetry Consults: SMART (Applications Intern, PT/OT, CLAIM REP, Spiritual Care) #Hyperlipidemia LDL on admission was 68. Goal LDL for secondary stroke prevention is <70. She has previously refused anti-lipid medication reporting feeling unwell on medicaiton and with muscle pain without weakness. # CAD s/p WI with stent placement (2013) # HFrEF (LVEF 20%, was LVEF 40% in 2019) She follows with Dr. Hernandez [facility] Cardiology - last seen 07/18/22 in [...] BID and taking intermittently, however her pharmacy ([facility]) indicates she does not fill this medication [...] in the field was 68/31, 90/45 at [place]. Initially responded to fluid boluses. Noted to [...] a 82y/o female with PMH of CAD, WI, SSS s/p Biotronik pacemaker, Atrial fibrillation (previously [...] BP of 68/31. She was taken to [facility] for further evaluation as a Code [place]. [...] of TNK at 14:28 and transferred to [facility] ED for mechanical thrombectomy evaluation. Upon arrival to [facility] ED her vital signs were: HR [...] woman with past medical history of CAD, WI, SSS s/p Biotronikpacemaker, Atrial fibrillation (previously on [...] differential for consideration per TOAST criteria include: gazbnq-ph-niynrt embolism or cardioembolism. Cardioembolism is most likely [...] mg PO qHS (SPARCL trial). The current [place] Stroke Association guidelines recommend long-term treatment with [...] muscle pain without weakness. # CAD s/p WI with stent placement (2013) # HFrEF (LVEF 20%, was LVEF 40% in 2019) She follows with Dr. Hernandez [facility] Cardiology - last seen 07/18/22 in [...] BID and taking intermittently, however her pharmacy ([facility]) indicates she does not fillthis medication and [...] admitted to acute: 08/03/22 Precautions/Restrictions: Aspiration, Falls [place] Suicide Severity Rating Scale: Allergies: Allergies Allergen [...] bed mobility SBA (08/12/2022 9:31 AM) Cognition/Communication/Swallowing: CLAIM REP Communication: expressive aphasia (08/12/2022 9:31 AM) CLAIM REP Swallowing: Mild Dysphagia - pureed/thin (08/12/2022 9:31 AM) Conditions requiring acute rehab and risk for complications: Gait dysfunction - risk for falls and further injury, fracture Uncontrolled Hypertension - risk for stroke, stroke extension, WI Decreased mobility - Risk for Fall, skin [...] by a provider, Intense PT/OT/SP, Access to S[facility] physicians, Supervised feeding groups, Frequent Neuroassessment, Bowel [...] the intensive Inpatient rehabilitation program offered at [facility] . documented in this encounter Plan of Treatment Not on file documented as of this encounter Visit Diagnoses Not on filedocumented in this encounter Care Teams Rabbet Operator Relationship Specialty Start Date End Date Jaleel Mcgovern MD PCP - General Family Practice 07/18/22 Reynaldo Flannery DO Consulting Physician Cardiology 09/26/17 Guanakito Holland MD Consulting Physician Cardiovascular Disease 07/29/18 documented as of this encounter
[2024-05-06 11:00] VITALS: BP 111/64; PULSE 70; RESP 20; O2SAT 96
[2024-05-06 11:15] VITALS: BP 107/68; PULSE 70; RESP 20
[2024-05-06 11:30] VITALS: BP 104/68; PULSE 74; RESP 20; O2SAT 98
[2024-05-06 12:00] VITALS: BP 103/67; PULSE 78; RESP 20
[2024-05-06 12:30] VITALS: BP 102/78; PULSE 65; RESP 20
[2024-05-06 12:50] VITALS: BP 110/74; PULSE 65; RESP 20; O2SAT 97
== END 2024-05-06 12:55 | disposition home or self-care (01) ==
PROVIDERS: Radiology Diagnostic Radiology; PCP Family Medicine; Visit Provider Family Medicine
DX: J98.11 Atelectasis (principal); I51.7 Cardiomegaly; J90 Pleural effusion, not elsewhere classified
CPT/HCPCS: 32555

== ENCOUNTER 2024-05-21 10:41 | Outpatient (CLI) | payer MEDICARE, SELFPAY | END 2024-05-21 10:42 | disposition home or self-care (01) | PROVIDERS: PCP Family Medicine; Visit Provider Family Medicine | DX: J90 Pleural effusion, not elsewhere classified (principal); Z95.0 Presence of cardiac pacemaker | CPT/HCPCS: 71046 ==

== ENCOUNTER 2024-06-21 10:48 | Outpatient (CLI) | payer MEDICARE, SELFPAY ==
[2024-06-07 14:46] VITALS: BMI 24.5
--- NOTE | 2024-06-07 14:47 | PC.NURSE ---
Pre Radiology instructions Report to the outpatient rinku galvan on date __06/21/24___ at time ___11:00AM____ for procedure Time: __1:00PM__ YOU MAY BE MONITORED AT HOSPITAL FOR UP TO 4 HOURS AFTER YOUR PROCEDURE. A visitor will be allowed to accompany the patient into the hospital. You and your visitor will be asked to self-screen and do not enter if you have any COVID symptoms. A mask is OPTIONAL within the hospital. Patients are to have no food or drink 6 hours prior to procedure time Driving will be restricted after the procedure, you must have a person to drive you home. Labs will be drawn in preop area and once reviewed, you will be taken to radiology area for procedure. When the procedure is completed, you will be taken to outpatient where you will be monitored for several hours. You may have one visitor in this area. Other than holding anti-coagulants, patient may take other medication(s) as scheduled. Prior to your appointment date patients are instructed to hold anti-coagulants after discussing with ordering provider to stop. If unable to discontinue anti-coagulants please notify radiologist. ? No aspirin or warfarin (Coumadin) for 7 days prior to the procedure. ? No clopidogrel (Plavix), ticagrelor (Brilinta), prasugrel (Effient) or dabigatran (Pradaxa) for 5 days prior to the procedure. ? No rivaroxaban (Xarelto), apixaban (Eliquis), dipyridamole (Aggrenox or Persantine) or cilostazol (Pletal) for 2 days prior to the procedure. Medications to discontinue per physician: __HOLD ELIQUIS 2 DAYS PRE-OP- LAST DOSE 06/18/24 HOLD ASPIRIN 7 DAYS PRE-OP- LAST DOSE 06/13/24 Please leave all valuables, including medications, at home the day of procedure. The hospital will not accept responsibility for valuables. Wear comfortable, loose fitting clothing.? Follow any additional instructions given to you from ordering provider. Telephone instructions given to ____PATIENT'S DAUGHTER-VIRAL and asked if any additional questions and then verbalized understanding. Patient advised to call scheduling provider office or registration scheduling [phone] if any additional questions.
[2024-06-21] VITALS (8 sets, daily range): BP systolic 76–90; BP diastolic 50–65; PULSE 72–88; RESP 16–20; TEMP 36.5; O2SAT 99–100; BMI 24.9
--- NOTE | ~2024-06-21 | US_ITS ---
EXAMINATION: US thoracentesis DATE: 06/21/2024 14:05 INDICATION: pleural effusion TECHNIQUE: The procedure and its risks, benefits, and alternatives were discussed with the patient. P otential risks discussed included bleeding, infection, and pneumothorax. The patient understood the r isks and agreed to proceed. The skin was prepped and draped in sterile fashion. 1% lidocaine was used for local anesthesia. Under ultrasound guidance, a 5 Fr catheter with trochar was advanced into the left pleural effusion. Fluid was aspirated. The catheter was removed, and a dressing was applied. The re were no immediate complications. FINDINGS: Ultrasound images demonstrate a left pleural effusion and the catheter within the fluid. IMPRESSION: 1. Successful ultrasound-guided thoracentesis yielding 650 mL of yellow fluid. Reviewed, dictated and finalized at location A.
--- NOTE | ~2024-06-21 | XR_ITS ---
EXAMINATION: [id number] DATE: 06/21/2024 13:36 INDICATION: Left pleural effusion status post thoracentesis. TECHNIQUE: A single frontal view of the chest was obtained. COMPARISON: Chest 2 views 05/21/2024 FINDINGS: There is mild atelectasis at left lung base. There is a small left pleural effusion. No pne umothorax. Cardiomegaly is noted. There is a left chest wall pacer with leads in the right atrium and right ventricle. Surgical clips in the right upper quadrant are likely from cholecystectomy. IMPRESSION: 1. Small left pleural effusion with improvement status post thoracentesis. 2. Cardiomegaly. Reviewed, dictated and finalized at location A.
--- OUTSIDE RECORDS SUMMARY | 2024-06-21 12:15 | XMS_ITS | Encounter Summary ---
Author Organization [facility] Healthcare Address [address] [place] [address] Care Team Providers Care Precision Lens Grinder Name Role Phone Reynaldo Flannery DO Unavailable [phone] Guanakito Holland MD Unavailable [phone] Jaleel Mcgovern MD Primary Care Provider [phone] Encounter Details Date Type Department Care Team (Late st Contact Info) Description 08/12/2022 Telephone [facility] Physical Medicine and Rehabilitation [address] [place] [address] Kimberly Gibbons, DISH NETWORK INSTALLER Social History Tobacco Use Types Packs/Day Years [...] Date Recorded PHQ-2 Total Score 0 08/12/2022 [facility] of Occupat ional Health - Occupational Stress [...] on file Legal Sex Female 11:18 AM PANAMA HAT SMEARER Gender Identity Female 10/09/2022 9:08 AM CDT [...] 9:27 AM CDT documented in this encounter Functional Status * Audit-C Score Answer Date of Assessment Author 0 08/12/2022 1:53 PM Ladonna Doshi MSW * Question Answer Date of Assessment Author Q1: How often do you have a drink containing alcohol? Never 08/12/2022 1:53 PM Yissel Doshi MSW Q2: How many drinks containing alcohol do you have on a typical day when you are drinking? Patient does not drink 08/12/2022 1:53 PM Yissel Dsohi MSW Q3: How often do you have six or more drinks on one occasion? Never 08/12/2022 1:53 PM Yissel Doshi MSW * Over the past 2 weeks, how often have you been bothered by any of the following problems? Question Answer Date of Assessment Author Patient Health Questionnaire -2 Score 0 08/12/2022 2:22 PM Yissel Doshi MSW * If you checked off any problems on this questionnaire so far, Question Answer Date of Assessment Author How difficult have these problems made it for you to do your work, take care of things at home, or get along with other people? Not difficult at all 08/12/2022 2:22 PM CDT Armen, Yissel R ., BOARDINGHOUSE KEEPER * Over the past 2 weeks, how often have you been bothered by any of the following problems? Question Answer Date of Assessment Author Little interest or pleasure in doing things Not at all 08/12/2022 2:22 PM Yissel Doshi , BOARDINGHOUSE KEEPER Feeling down, depressed, or hopeless Not at all 08/12/2022 2:22 PM BENJAT Yissel Ayers , BOARDINGHOUSE KEEPER Trouble falling or staying asleep, or sleeping too much Several days 08/12/2022 2:22 PM BENJAT Miles Ayers, BOARDINGHOUSE KEEPER Feeling tired or having little energy Several days 08/12/2022 2:22 PM BENJAT Yissel Ayers , BOARDINGHOUSE KEEPER Poor appetite or overeating Not at all 08/12/2022 2: 22 PM Yissel Doshi, BOARDINGHOUSE KEEPER Feeling bad about yourself - or that you are a failure or have let yourself or your family down Not at all 08/12/2022 2:22 PM Yissel Doshi , BOARDINGHOUSE KEEPER Trouble concentrating on things, such as reading the newspaper or watching television Not at all 08/12/2022 2:22 PM BENJAT Yissel Ayers , BOARDINGHOUSE KEEPER Moving or speaking so slowly that other people could have noticed? Or the opposite - being so fidgety or restless that you have been moving around a lot more than usual. Not at all 08/12/2022 2:22 PM Yissel Doshi , BOARDINGHOUSE KEEPER Thoughts that you would be better off or hurting yourself in some way Not at all 08/12/2022 2:22 PM Yissel Doshi, BOARDINGHOUSE KEEPER Patient Health Questionnaire-9 Score 2 08/12/2022 2:22 PM Yissel Doshi BOARDINGHOUSE KEEPER documented as of this encounter Miscellaneous Notes * Pre-Admission Screening - Kimberly Gibbons SLP - 08/12/2022 9:44 AM CDT [facility] Physical Medicine and Rehabilitation Preadmission Screening Reason [...] level of care. Patient is currently at [facility] . The patient is being [...] Payor Source: Primary: Medicare A&B Secondary:Policy number: [id number] Case discussed with Dr. Nena Oneal on [...] Use: Not on file Patient's Preferred Language: Thai Cultural Requests During Hospitalization: none conveyed Acute [...] DAPT who presents after receiving TNK at [facility] as a thrombectomy page. Per the patient's family at bedside, the patient was having lunch with one of her daughters when her daughter noticed that she started leaning towards the right. She subsequently became mute and developed a left gaze preference. Her last known normal was 1305. She was[facility] to [facility], there her NIHSS was reportedly a [address] physician[address]. Gomez evaluated the patient by telestroke and recommended a CTH + CTA head and neck. She had a hyperdense left MCA sign on CTH and a left M1 occlusion on CTA. She was a GO for TNK and received the drug at 1423.She was then transferred to [facility] for thrombectomy evaluation. On arrival her [...] DAPT who presents after receiving TNK at [facility] as a thrombectomy page. The patient [...] a 82y/o female with PMH of CAD, WA, SSS s/p Biotronik pacemaker, Atrial fibrillation (previously [...] BP of 68/31. She was taken to [facility] for further evaluation as a Code [...] of TNK at 14:28 and transferred to [facility] ED for mechanical thrombectomy evaluation. Upon arrival to [facility] ED her vital signs were: HR [...] Other surgical history (2015); Other surgical history (2016); Cataract extraction w/ intraocular lens implant (Bilateral); [...] RA lead revision on 09/14/18 done at [facility]), non-morbid obesity (BMI 30), GENNY non compliant with CPAP, PAD and carotid artery stenosis who presented to [facility] on 08/03/22 with R si ded [...] their arrival. She was initially taken to [facility] to evaluation for stroke. Her BP's improved to 109/89 with [address] Head showed a large hyperdense MCA without hemorrhage, then subsequent CTA Head/Neck showed complete occlusion of theM1 segment of the L MCA. There were also carotid stenoses in the proximal LICA (80%) and proximal SKYLRA (50%). Ms Giron was then transferred to [facility] for tPA and thrombectomy. Ms Giron had an WA in 2013 requiring JOI to mid LCx performed at [facility]. Subsequently shedeveloped atrial fibrillation and tachy-hailey [...] (Dr. Hernandez on 07/18/22): LD Entresto BID, Hyndman 25, and Lasix 20 daily. - recommend [...] woman with past medical history of CAD, WA, SSS s/p Biotronikpacemaker, Atrial fibrillation (previously on [...] Work-up: - Monitor on telemetry Consults: SMART (Animal Biologist, PT/OT, DISH NETWORK INSTALLER, Spiritual Care) #Hyperlipidemia LDL on admission was 68. Goal LDL for secondary stroke prevention is <70. She has previously refused anti-lipid medication reporting feeling unwell on medicaiton and with muscle pain without weakness. # CAD s/p WA with stent placement (2013) # HFrEF (LVEF 20%, was LVEF 40% in 2019) She follows with Dr. Hernandez [facility] Cardiology - last seen 07/18/22 in office. [...] BID and taking intermittently, however her pharmacy ([facility]) indicates she does not fill this medication [...] in the field was 68/31, 90/45 at [place]. Initially responded to fluid boluses. Noted to [...] a 82y/o female with PMH of CAD, WA, SSS s/p Biotronik pacemaker, Atrial fibrillation (previously [...] BP of 68/31. She was taken to [facility] for further evaluation as a Code [...] of TNK at 14:28 and transferred to [facility] ED for mechanical thrombectomy evaluation. Upon arrival to [facility] ED her vital signs were: HR [...] woman with past medical history of CAD, WA, SSS s/p Biotronikpacemaker, Atrial fibrillation (previously on [...] differential for consideration per TOAST criteria include: ecdzoe-sm-csryvm embolism or cardioembolism. Cardioembolism is most likely [...] mg PO qHS (SPARCL trial). The current [place] Stroke [employer] guidelines recommend long-term treatment with [...] muscle pain without weakness. # CAD s/p WA with stent placement (2013) # HFrEF (LVEF 20%, was LVEF 40% in 2019) She follows with Dr. Hernandez [facility] Cardiology - last seen 07/18/22 in office. [...] BID and taking intermittently, however her pharmacy ([facility]) indicates she does not fillthis medication and [...] admitted to acute: 08/03/22 Precautions/Restrictions: Aspiration, Falls Villalba Suicide Severity Rating Scale: Allergies: Allergies Allergen [...] mg 8 mg feeding tube Nightly Capri Currna MD 8 mg at 08/11/222050 rosuvastatin (CRESTOR) [...] bed mobility SBA (08/12/2022 9:31 AM) Cognition/Communication/Swallowing: DISH NETWORK INSTALLER Communication: expressive aphasia (08/12/2022 9:31 AM) DISH NETWORK INSTALLER Swallowing: Mild Dysphagia - pureed/thin (08/12/2022 9:31 AM) Conditions requiring acute rehab and risk for complications: Gait dysfunction - risk for falls and further injury, fracture Uncontrolled Hypertension - risk for stroke, stroke extension, WA Decreased mobility - Risk for Fall, skin [...] by a provider, Intense PT/OT/SP, Access to Sash Clamp Operator physicians, Supervised feeding groups, Frequent Neuroassessment, Bowel Program, Modified Barium Swallow/FEES Alternative Level of Care considered and not appropriate due to: Consult physician oversight, Medication adjustment/oversight, Neurochecks, Daily MD oversight, Repeat swallow studies Patient/Caregiver Goals: Patient and Family Goals: to return home with caregiver assist and [facility] Cosigned by Opal Mace MD at 08/12/2022 [...] the intensive Inpatient rehabilitation program offered at [facility] . documented in this encounter Plan of Treatment Not on file documented as of this encounter Visit Diagnoses Not on filedocumented in this encounter Care Teams Precision Lens Grinder Relationship Specialty Start Date End Date Jaleel Mcgovern MD PCP - General Family Practice 07/18/22 Reynaldo Flannery DO Consulting Physician Cardiology 09/26/17 Guanakito Holland MD Consulting Physician Cardiovascular Disease 07/29/18 documented as of this encounter
--- OUTSIDE RECORDS SUMMARY | 2024-06-21 12:15 | XMS_ITS | Referral Summary ---
Author Organization [facility] Address [address] [place] [address] Care Team Providers Care Cabin Service Agent Name Role Phone Reynaldo Flannery DO Unavailable [phone] Guanakito Holland MD Unavailable [phone] Jaleel Mcgovern MD Primary Care Provider [phone] Encounters Date Type Department Care Team Description 06/04/2024 Telephone [facility] Cardiology [address] [place] [address] [address] [place] [address] Mannie Hernandez MD 05/04/2024 9:45 AM DIRECTOR OF MARKETING COMMUNICATIONS Ancillary Procedure [facility] Cardiology [address], [place] [address] Cardiac pacemaker in situ (Primary Dx); Paroxysmal atrial fibrillation (HCC); Sick sinus syndrome (HCC) 04/16/2024 11:00 AM DIRECTOR OF MARKETING COMMUNICATIONS Office Visit [facility] Cardiology at [address] [place] [address] Mannie Hernandez MD Coronary artery disease involving port graham coronary artery of port graham heart without angina pectoris (Primary Dx); History of coronary artery stent placement; Cardiac pacemaker in situ; Permanent atrial fibrillation (HCC) from Last 3 Months Allergies Active [...] Unknown Medications cholecalciferol (VITAMIN D-3) 2,000 unit tabletIndication s:Prevention of Vitamin D Deficiency take 1 tablet by oral route every day 90 3 6 Active cyanocobalamin (Vitamin B-12) 100 mcg tabletIndication s:Prevention of Vitamin B12 Deficiency Take 10 tablets (1,000 mcg total) by mouth daily Active aspirin 81 mg chewable tabletIndication s:prevention of thrombosis Take 1 tablet (81 mg total) by mouth daily 90 tablet 3 025 Active spironolactone (ALDACTONE) 25 mg tabletIndication s:hypertension Take 0.5 tablets (12.5 mg total) by mouth daily 45 tablet 3 025 Active fluticasone propionate (FLONASE) 50 mcg/actuation nasal sprayIndications :allergies Administer 1 spray into each nostril daily as needed for allergies Active fexofenadine (WALESKA) 180 mg tabletIndication s:allergies Take 1 tablet (180 mg total) by mouth daily as needed (allergies) Active Ventolin HFA 90 mcg/actuation inhaler 3 Active acetaminophen (TYLENOL) 160 mg chewable tabletIndication s:Pain Take 1 tablet (160 mg total) by mouth every 6 (six) hours as needed for pain Active furosemide (LASIX) 20 mg tablet Take 2 tablets (40 mg total) by mouth daily 3 Active coenzyme Q10 30 mg capsule Take 1 capsule (30 mg total) by mouth 3 (three) times a day Active apixaban (ELIQUIS) 5 mg tabletIndication s:atrial fibrillation Take 1 tablet (5 mg total) by mouth every 12 (twelve) hours 180 tablet 3 4 025 Active sacubitriL-valsa rtan (ENTRESTO) 24-26 mg tabletIndication s:chronic heart failure Take 1 tablet by mouth 2 (two) times a day 180 tablet 3 4 Active dapagliflozin propanediol (FARXIGA) 10 mg tabletIndication s:Heart Failure Take 1 tablet (10 mg total) by mouth daily 90 tablet 3 5 026 Active dapagliflozin propanediol (FARXIGA) 10 mg tabletIndication s:Heart Failure Take 1 tablet (10 mg total) by mouth daily 90 tablet 2 4 025 Discontin ued(Reord er) dapagliflozin propanediol (FARXIGA) 10 mg tabletIndication s:Heart Failure Take 1 tablet (10 mg total) by mouth daily 90 tablet 3 5 025 Discontin ued(Reord er) Active Problems Problem Noted Date Diagnosed Date Permanent atrial fibrillation 02/13/2024 HFrEF (heart failure with reduced ejection fract ion) 08/29/2022 Assessment & Plan (08/29/2022 9:31 PM [...] is to continue close follow-up with local supervisor coremaker and therefore would like to discuss with [...] needed. Assessment & Plan (03/12/2017 2:39 PM DIRECTOR OF MARKETING COMMUNICATIONS): Patient has Xanax for p.r.n. use. She [...] his passing. She [facility] at [facility]. We discussed Senior renewal. She declines at the present time. She would like to continue to monitor her panic attacks and was instructed to use Xanax as previously prescribed on an as needed basis. Coronary artery disease invo lving port graham coronary artery of [place] heart 12/25/2016 Overview (04/19/2019): Status post PCI in June 2013 (RL). Normal Cardiolite in August 2014. Assessment & Plan (08/29/2022 9:25 PM CDT): Denies any chest pain or anginal equivalent. Recent drop in her LVEF to 20% from 40% with unclear etiology. Continue aspirin, metoprolol and Crestor. Would like to discuss with her local supervisor coremaker about additional ischemic workup as she plans [...] given Assessment & Plan (03/12/2017 2:37 PM DIRECTOR OF MARKETING COMMUNICATIONS): Blood pressure is slightly elevated during office [...] is less than 70. Will discuss local supervisor coremaker about statin therapy and possible PCSK9 inhibitor. Assessment & Plan (07/29/2018 4:47 AM CDT): Not on statin Osteoarthritis 01/20/2013 Overview (06/27/2016): Osteoarthritis Resolved Problems Problem Noted Date Diagnosed Date Resolved Date Chest pain 09/29/2018 12/24/2018 Hypertensive urgency 09/29/2018 019 Anxiety 09/29/2018 12/24/2018 Sick sinus syndrome 09/14/2018 02/13/20 24 Overview (04/19/2019): Status post Biotronik Edora 8 DRT on 29 Jul 2018 (RL). New atrial lead on 14 September 2018 (DG). Diarrhea of infectious origin 07/29/2018 12/24/2018 NSTEMI (non-ST elevated myoc ardial infarction) 07/29/2018 02/01/2020 Assessment & Plan (07/29/2018 4:52 AM CDT): Patient currently in AFib with RVR. Suspect elevated troponins are due to demand ischemia. Will continue on telemetry monitoring Trend troponins Repeat EKG in a.m. Cardiology consult Keep the patient NPO Patient currently on Eliquis oral anticoagulation Patient denies any chest pain Atrial fibrillation with rap id ventricular response 09/25/2017 02/01/2020 Assessment & Plan (07/29/2018 4:51 AM CDT): Continue with amiodarone drip. Patient completed a dose of digoxin. Cardiology consult in a.m. Will obtain echo cardiac in a.m. Telemetry monitoring Restart Eliquis Cough 03/12/2017 06/24/2017 Assessment & Plan (03/12/2017 2:39 PM DIRECTOR OF MARKETING COMMUNICATIONS): Influenza A negative influenza B negative. Sore throat 03/12/2017 06/24/2017 Assessment & Plan (03/12/2017 2:39 PM DIRECTOR OF MARKETING COMMUNICATIONS): Rapid strep negative. Viral URI with cough 03/12/2017 018 Assessment & Plan (03/12/2017 2:40 PM DIRECTOR OF MARKETING COMMUNICATIONS): Humidification, fluids, and rest were recommended. Patient [...] any ill side effects. Paroxysmal atrial fibrillation 12/25/2016 02/13/2024 Assessment & Plan (08/29/2022 9:26 PM CDT): In normal rhythm today. Continue metoprolol and Eliquis. Assessment & Plan (07/23/2019 11:05 AM CDT): Routinely follows-up with at [facility]. NSR today in office. Cnt. Eliquis for anticoagulation Assessment & Plan (03/12/2017 2:37 PM DIRECTOR OF MARKETING COMMUNICATIONS): Patient will continue routine follow-up with Dr. Pennie pierre and local supervisor coremaker as recommended. She reports compliance with her [...] PRECORDIAL PAIN Nausea in adult 12/24/2018 Immunizations Immunization Administration Dates Next Due Influenza, Unspecified 01/31/2020(Deferr [...] Health Questionnaire-2 Score 0 08/23/2022 [facility] Occupat ional [facility] - Occupational Stress Questionnaire Answer [...] Legal Sex Female 11:18 AM DIRECTOR OF MARKETING COMMUNICATIONS Gender Identity Female 10/09/2022 9:08 AM CDT Sexual Orientation Choose not to disclose 2022 9:08 AM CDT Last Filed Vital Signs Vital Sign Reading Time Taken Comments Blood Pressure 112/72 04/16/2024 10:42 AM DIRECTOR OF MARKETING COMMUNICATIONS Pulse 79 04/16/2024 10:42 AM DIRECTOR OF MARKETING COMMUNICATIONS Temperature 36.4 C (97.6 F) 10/24/2022 11:50 AM CDT Respiratory Rate 18 10/24/2022 11:50 AM CDT Oxygen Saturation 95% 04/16/2024 10:42 AM DIRECTOR OF MARKETING COMMUNICATIONS Inhaled Oxygen Concentration - - Weight 61.7 kg (136 lb) 04/16/2024 10:42 AM DIRECTOR OF MARKETING COMMUNICATIONS Height 154.9 cm (5' 1 ) 04/16/2024 10:42 AM DIRECTOR OF MARKETING COMMUNICATIONS Body Mass Index 25.7 04/16/2024 10:42 AM DIRECTOR OF MARKETING COMMUNICATIONS Plan of Treatment Not on file Medical Devices Implanted Type Area Verification Engineer Device Identifier Shelf Expiration Date Model / Serial / Lot Biotronik Inc [id number] Endocardial Pacing Lead Promri Solia Jt 45 - [id number] - [id number] Implanted:Qty: 1 on 07/29/2018 by Guanakito Holland MD at [facility] Lead Biotronik Inc 12/22/2019 [id number] / [id number] / [employer]ik Inc [id number] Endocardial Pacing Lead Promri Solia T 53 - [id number] - [id number] Implanted:Qty: 1 on 07/29/2018 by Guanakito Holland MD at [facility] Lead Biotronik Inc 12/22/2019 [id number] / [id number] / Biotronik Inc 021600 Solia S 45cm Bipolar Active Fixation Lead Pacing Steroid Eluting - [id number] - [id number] Implanted:Qty: 1 on 09/14/2018 by Reynaldo Flannery DO at [facility] Lead [employer]ik Inc [id number] 05/21/2020 [id number] / [id number] / [id number] Biotronik Inc [id number] Edora Promri 02k87s1.5mm 1 Chamber Rate Adaptive Unipolar Bipolar - [id number] - [id number] Implanted:Qty: 1 on 07/29/2018 by Guanakito Holland MD at [facility] Pacemaker [employer]ik Inc 11/22/2019 [id number] / [id number] / Medtronic Cardiac Rhythm Mgmt [id number] Tyrx 2.7x2.5in Medium Envelope Absorbable Polyarylate Minocycline - [id number] Implanted:Qty: 1 on 09/14/2018 by Reynaldo Flannery DO at [facility] Med[employer] Inc 10/21/2018 [id number] / / [id number] Chinchilla Vascular Perclose 6fr Vascular Closure [id number] - [id number] Implanted:Qty: 1 on 08/03/2022 at [facility] [employer] 03/23/2024 1267 05-24 / [id number] Procedures Procedure Name Priority Date/Time Associated Diagnosis Comments DEVICE CHECK - REMOTE Routine 05/04/2024 8:30 AM DIRECTOR OF MARKETING COMMUNICATIONS Paroxysmal atrial fibrillation (HCC) Sick sinus syndrome (HCC) SCREENING MAMMOGRAM BILATERAL W OSCAR Schedule Routine, Read Routine (OP Routine) 04/06/2020 1:21 PM DIRECTOR OF MARKETING COMMUNICATIONS Visit for screening mammogram Essential hypertension Mixed hyperlipidemia COLONOSCOPY Routine 05/26/2019 HM DEXA SCAN Routine 11/14/2014 from Last 3 Months or Most Recently Relevant to Health Maintenance Results * DEVICE CHECK - REMOTE (05/04/2024 8:30 AM DIRECTOR OF MARKETING COMMUNICATIONS) Anatomical Region Laterality Modality Other Narrative 05/25/2024 10:31 AM DIRECTOR OF MARKETING COMMUNICATIONS Biotronik Dual Pacemaker. Dx; SSS, Afib. DOI 07/29/2018-Dr Holland. RA Lead replaced 09/14/18. AV Node Ablation 12/2018. Routine VVI CLS Pacemaker Remote. Transmission attached. Battery status: OK, 45% remaining battery life to LEANA. Stable lead impedances, pacing and sensing thresholds. Presenting rhythm: VS-FRUIT DUMPER FRUIT DUMPER-88% No AT/AF episodes noted. No Ventricular high rate episodes detected. Medications: Eliquis 5 mg, ASA 81 mg, Entresto See scanned report. Office pacemaker follow up: 6 months Biotronik remote f/u 08/03/24. Wing Reich, BRAYAN Mannie Hernandez MD CARDIAC SERVICES PROC EDURES Final Result * Screening Mammogram Bilateral W Oscar (04/06/2020 1:21 PM DIRECTOR OF MARKETING COMMUNICATIONS) Anatomical Region Laterality Modality Breast Bilateral Mammography 04/06/2020 2:09 PM DIRECTOR OF MARKETING COMMUNICATIONS Impressions 04/06/2020 3:13 PM DIRECTOR OF MARKETING COMMUNICATIONS There is no mammographic evidence of malignancy. A 1 year screening mammogram is recommended. BI-RADS: 2 - Benign. The patient will be entered into a reminder system with a target due date of 1 year for her next mammogram. Electronically signed by: Micaela Jang MD Narrative 04/06/2020 3:13 PM DIRECTOR OF MARKETING COMMUNICATIONS EXAMINATION: SCREENING MAMMOGRAM BILATERAL W OSCAR ORDERING [...] has been no suspicious interval change. Result [facility] Ryan Castrejon MD IMG MAMMO PROCEDURES Final Res ult * Colonoscopy (05/26/2019) Anatomical Region Laterality Modality Other Historical Provider ENDOSCOPY PROCEDURES Roshni l Result * DEXA SCAN (11/14/2014) DEXA Scan Abnormal Comment:Osteopenia Historical Provider HEALTH MAINTENANCE Final Result from Last 3 Months or Most Recently Relevant to Health Maintenance Insurance [facility] MEDIC[facility] SUPPLEMENT [facility]ICARE [facility] MEDICARE SUPPLEMENT MEDICARE [facility] [place] Advance Directives For more information, please contact: [phone] * LIMITED - No CPR (Latest Code [...] 11:36 AM 10/19/2019 7:30 PM Care Teams Cabin Service Agent Relationship Specialty Start Date End Date Jaleel Mcgovern MD PCP - General Family Practice 07/18/22 Reynaldo Flannery DO Consulting Physician Cardiology 09/26/17 Guanakito Holland MD Consulting Physician Cardiovascular Disease 07/29/18
--- OUTSIDE RECORDS SUMMARY | 2024-06-21 12:15 | XMS_ITS | CONTINUITY OF CARE DOCUMENT ---
Author Name marielos marielos Address Unknown Organization [facility] Address [address] [place] [address] Phone [phone] Care Team Providers Care Loss Control Manager Name Role Phone Willis APPIAH, Camron Unavailable RYAN ANDERS MD Unavailable [phone] RYAN ANDERS MD Unavailable [phone] PROBLEMS Condition Status Date Provider Notes Shortness [...] Sick sinus syndrome active Reynaldo Flannery DO correction drug therapy (Amio darone)- [facility] follows active Reynaldo Flannery DO Fatigue active Lizbet Delgado NP AAA active Lizbet Delgado NP ENCOUNTERS Date Type Provider Location Encounter Diagnosis - In-person encounter Office Visit Camron Pedro [facility] AAA - In-person encounter Office Visit Reynaldo Flannery [facility] - In-person encounter Office Visit Reynaldo Flannery [facility] [place] Fatigue - In-person encounter Office Visit Reynaldo Flannery [facility] Office - In-person encounter Office Visit Reynaldo Flannery [facility] Office - In-person encounter Office Visit Reynaldo Flannery [facility] Office - In-person encounter Office Visit Reynaldo Flannery DO [facility] correction drug therapy (Amiodarone)- [facility] follows - In-person encounter Office Visit Reynaldo Flannery [facility] Office - In-person encounter Office Visit Reynaldo Flannery [facility] Office - In-person encounter Office Visit Reynaldo Flannery [facility] [place] Status Post Medtronic (MRI Safe) REVEAL/LinQ - In-person encounter Office Visit Reynaldo Flannery [facility] Office - In-person encounter Office [facility] - [facility] - [facility] encounter Office [facility] - [facility] encounter [facility] V[facility] SIGNS Date Observation [...] Mass Index (Ratio) 27.36 kg/m2 Denn is Camuy DO blood pressure, cuff size regular Kr is Cameron blood pressure, diastolic 70 mm[Hg] Kr ty Cameron blood pressure, systolic 100 mm[Hg] [facility] oxygen saturation, oximetry 98 % Bria Cameron pulse rate 92 /min Bria Hieu respiratory rate E&M 18 /min Bria Hieu weight E&M 147.2 [lb_av] Bria Cameron height E&M 61.5 [in_i] Bria Cameron Body Mass Index (Ratio) 30.11 kg/m2 Denn is Camuy DO blood pressure, cuff size regular Ke [...] Mass Index (Ratio) 31.37 kg/m2 Denn is Camuy DO pulse rate 67 /min Bria Cameron oxygen saturation, oximetry 95 % Bria Hieu blood pressure, diastolic 80 mm[Hg] Kr isty Hieu blood pressure, systolic 140 mm[Hg] Kri sty Hieu respiratory rate E&M 18 /min Bria Hieu weight E&M 168.8 [lb_av] Bria Cameron height E&M 61.5 [in_i] Bria Cameron Body Mass Index (Ratio) 32.53 kg/m2 Carson [...] Mass Index (Ratio) 31.45 kg/m2 Denn is Camuy DO blood pressure, cuff size regular Kr isty Hieu blood pressure, diastolic 70 mm[Hg] Kr isty Hieu blood pressure, systolic 122 mm[Hg] Kri sty Hieu oxygen saturation, oximetry 98 % Bria Cameron respiratory rate E&M 17 /min Bria Hieu pulse rate 101 /min Bria Cameron weight E&M 169.2 [lb_av] Bria Cameron height E&M 61.5 [in_i] Bria Hieu Body Mass Index (Ratio) 30.85 kg/m2 Denn is Camuy DO blood pressure, diastolic 92 mm[Hg] Ananda [...] Octavio Body Mass Index (Ratio) 30.30 kg/m2 aMtt [place] blood pressure, cuff size regular Carlos isty Hieu blood pressure, diastolic 70 mm[Hg] Carlos isty Cameron blood pressure, systolic 124 mm[Hg] Carlosi stlena Cameron respiratory rate E&M 18 /min Bria Cameron oxygen saturation, oximetry 96 % Bria Cameron pulse rate 107 /min Bria Hieu weight E&M 163 [lb_av] Bria Cameron height E&M 61.5 [in_i] Bria Hieu Body Mass Index (Ratio) 30.48 kg/m2 Denn is Camuy DO oxygen saturation, oximetry 98 % Quiqueity Denia blood pressure, diastolic 84 mm[Hg] astity Denia blood pressure, systolic 142 mm[Hg] Suri stity Denia pulse rate 60 /min Chastity Denia respiratory rate E&M 16 /min Chastit y Denia weight E&M 164 [lb_av] Suristity Denia height E&M 61.5 [in_i] Suristity Denia Body Mass Index (Ratio) 30.30 kg/m2 Chiquita Yu RADAR REPAIRER blood pressure, cuff size large Ke rri [...] blood pressure, cuff size regular Kr isty Cameron blood pressure, diastolic 80 mm[Hg] Kr isty Hieu blood pressure, systolic 130 mm[Hg] Kri sty Hieu oxygen saturation, oximetry 97 % Bria Cameron respiratory rate E&M 16 /min Bria Hieu pulse rate 76 /min Bria Hieu weight E&M 167 [lb_av] Bria Hieu height E&M 61.5 [in_i] Bria Hieu Body Mass Index (Ratio) 31.04 kg/m2 Chiquita Yu RADAR REPAIRER Body Mass Index (Ratio) 30.67 kg/m2 Blayne is Camuy DO blood pressure, diastolic 80 mm[Hg] Thomas [...] blood pressure, diastolic 70 mm[Hg] Kr isty Hieu blood pressure, systolic 132 mm[Hg] Kri stlena Hieu oxygen saturation, oximetry 97 % Bria Cameron respiratory rate E&M 16 /min Bria Hieu pulse rate 71 /min Bria Hieu weight E&M 165 [lb_av] Bria Hieu height E&M 61.5 [in_i] Bria Hieu Body Mass Index (Ratio) 30.41 kg/m2 Blayne is Camuy DO blood pressure, cuff size regular Te [...] LinkLogic 3.5-5.2 sodium, serum 143 mmol/L [employer] [phone]/03/ 16 urea nitrogen/creatinine ratio, serum 15 LinkLogic [...] Not Estab. platelet count 265 X10E3/UL [employer] [phone]/03/ 16 red blood cell distribution width 12.2 [...] [employer]Logic 3.5-5.2 sodium, serum 143 mmol/L [employer] [phone]/01/ 23 urea nitrogen/creatinine ratio, serum 15 LinkLogic [...] [employer]Logic 3.5-5.2 sodium, serum 142 mmol/L [employer] [phone]/01/ 10 urea nitrogen/creatinine ratio, serum 16 LinkLogic [...] [employer]Logic 3.5-5.2 sodium, serum 142 mmol/L [employer] [phone]/07/ 19 urea nitrogen/creatinine ratio, serum 13 LinkLogic [...] [employer]Logic 3.5-5.2 sodium, serum 141 mmol/L [employer] [phone]/06/ 21 urea nitrogen/creatinine ratio, serum 17 LinkLogic [...] Not Estab. platelet count 233 X10E3/UL [employer] [phone]/06/ 21 red blood cell distribution width 13.5 [...] History: P petrona is a former smoker. Reyanldo Sahacock DO social history reviewed E&M revi ewed - no changes required Reynaldo Camuy DO smoking status Former smoker Reynaldo Elizabeth ock DO smoking status Former smoker Reynaldo Elizabeth ock DO social history E&M quit in 1974, smoked 1ppd for 11 years Smoking History: P atient is a former smoker. Reynaldo Flannery DO social history reviewed E&M revi ewed - no changes required Reynaldo Camuy DO smoking status Former smoker Isaías alfonso [...] (inactive) Management Plan continue current therapy Reynaldo Camuy DO HRA, CV Assess/Plan, Angina (inactive) Management Plan continue current therapy Reynaldo Camuy DO HRA, CV Assess/Plan, Angina (inactive) Management Plan continue current therapy Reynaldo Camuy DO HRA, CV Assess/Plan, Angina (inactive) Management Plan continue current therapy Reynaldo Camuy DO HRA, CV Assess/Plan, Angina (inactive) Management [...] Management Plan continue current therapy Samm Gigi RADAR REPAIRER HRA, CV Assess/Plan, Angina (inactive) Management Plan continue current therapy Reynaldoyenny Flannery DO HRA, CV Assess/Plan, Angina (inactive) Management Plan continue current therapy Samm Gigi RADAR REPAIRER HRA, CV Assess/Plan, Angina (inactive) Management Plan continue current therapy Samm Gigi RADAR REPAIRER HRA, CV Assess/Plan, Angina (inactive) Management Plan continue current therapy Reynaldo Flannery DO FAMILY HISTORY Family Member Condition Full Brother Family History of Co ronary Artery Disease: Father Negative FH of Coron dominick Artery Disease Mother Family History of Co ronary Artery Disease: INSURANCE PROVIDERS Payer name Policy type / Coverage type [place] red republican ID [facility] [id number] [place] MEDICARE PART B Medicare [id number] ADVANCE DIRECTIVES Name Date DISCUSSED - NO DECISION MADE TREATMENT PLAN Date Name Performer [id number],C,B P today 130/90. at home her BP has running 130/80 BP 2020: 100/70 P rior BP: 132/80 (01/06/2020) Labs Reviewed: C reat: 0.87 (02/16/2020) C hol: 210 (10/09/2018) HDL: 45 (10/09/2018) Orders: E KG (CPT-08165) 9 9213 LTD 20-29min (CPT-77822) C omplete Echo (CPT-84948) Camron Pedro MD [id number],W,w orse when in A. fib. E F 40% on echo 12/2019 o n entresto and spironolactone Orders: 9 9213 LTD 20-29min (CPT-33263) C omplete Echo (CPT-74497) Her updated medication list for this problem includes: Entresto 24-26 Mg Tablet (Sacubitril-valsartan) ..... 1 tablet by mouth twice a day Camron Pedro MD [id number],W,l ast remote check 07/2020. 100% AFIB. intolerant of amiodarone and sotalol caused hailey/junctional rhythm. interrogation today: 100% AFIB. normal function. normal function 1 00% AF burden p acer dependent discussed option of treatment with dofetilide in detail. at present patient does not want it Camron Pedro MD [id number],C,l ast remote check 07/2020. 100% AFIB. intolerant of amiodarone and sotalol caused hailey/junctional rhythm. interrogation today: 100% AFIB. normal function. normal function 1 00% AF burden p acer dependent discussed option of treatment with dofetilide in detail. at present patient does not want it Camron Pedro MD [id number],C,i nterrogation of device today 100% AFIB. discussed [...] BIV device if LVF declines. Lizbet Delgado RADAR REPAIRER [id number],C, p rior stent. follows with Amalia khoury iscussed with Amalia. OK to DC Plavix to begin Eliquis. Lizbet Villagomezantolin LANG [id number],C,p t states that she thinks 'its around 3'. she follows with her PCP and is due to have survellience scan in January Lizbet Villagomezantolin LANG [id number],C,B P today 130/90. at home her BP has running 130/80 BP 2020: 100/70 P rior BP: 132/80 (01/06/2020) Labs Reviewed: C reat: 0.87 (02/16/2020) C hol: 210 (10/09/2018) HDL: 45 (10/09/2018) Lizbet Villagomezantolin LANG [id number],C, due to have labs next month with PCP. Lizbet Villagomezantolin LANG [id number],C, H as severe sinus node dysfunction unable to tolerate antiarrythmic drug. H ad DDD PPM implanted 07/29/[address] Holland. Marlena t prior visit her atrial lead threshold was markedly increased and she was not capturing in the atrium. N ow s/p atrial lead revision 09/14/18 with normal function Lizbet Villagomezantolin LANG [id number],C, E F 40% on echo 12/2019 o n entresto and spironolactone Lizbet Villagomezantolin LANG [id number],C,l ast remote check 07/2020. 100% AFIB. intolerant of amiodarone and sotalol caused hailey/junctional rhythm. interrogation today: 100% AFIB. normal function. pacer dependent normal function 1 00% AF burden p acer dependent Lizbet Delgado RADAR REPAIRER Electrophysiology:BP today 130/90. at home her BP has running 130/80 BP 2020: 100/70 P rior BP: 132/80 (01/06/2020) Labs Reviewed: C reat: 0.87 (02/16/2020) C hol: 210 (10/09/2018) HDL: 45 (10/09/2018) Orders: E KG (CPT-21380) 9 9213 LTD 20-29min (CPT-85336) C omplete Echo (CPT-00344) Camron Pedro MD Electrophysiology:wo rse when in A. fib. E F 40% on echo 12/2019 o n entresto and spironolactone Orders: 9 9213 LTD 20-29min (CPT-22137) C omplete Echo (CPT-61772) Her updated medication list for this problem [...] to have survellience scan in January Lizbet eDlgado NP Electrophysiology:BP today 130/90. at home her [...] AF burden p acer dependent Lizbet Delgado RADAR REPAIRER Electrophysiology:EF 40% on echo 12/2019 o n [...] LVF declines. Reynaldo Sahacock DO Electrophysiology ep inpatient nursing aide fu NEEDS BILLING:stable Lizbet Ryansadie RADAR REPAIRER Electrophysiology ep inpatient nursing aide fu NEEDS BILLING:pt has had 5 episodes since march of sudden onset of extreme fatigue, nausea, excessive vomiting (>20 min), diaphoresis, that wipes her of all energy, and is unable eat for a couple of days following. she had an ERCP in 09/2019. and 01/[address] abd and LFTs drawn ([facility]) will need to obtain records interrogation today no episodes, normal function and no changes were made. doubtful this is cardiac in origin. w ill check ECHO, CMP, CBC, BNP. Lizbet Delgado NP Electrophysiology ep inpatient nursing aide fu NEEDS BILLING:paced p aced. s/p PVI [...] 1 mo. Lizbet Delgado NP Electrophysiology ep inpatient nursing aide fu NEEDS BILLING:interrogation today, no events, normal [...] ow s/p atrial lead revision 09/14/18 Cassi Heriebrto [facility] Electrophysiology - reivew/sign~M- fxd 02/05/19///TS:Implanted by [...] 124/70 P rior BP: 142/84 (05/28/2018) [facility]:Navarrete s severe sinus node dysfunction unable to tolerate antiarrythmic drug. Had DDD PPM inplmanted 07/29/[address] Holland. Her atrial lead threshold humaira markedly increased and she is not capturing in the atriium. The device was reporgrammed with appropriate atrial capture. She will return to see me in one month but may require atrial lead revision. Reynaldo [facility] Electrophysiology:s/ p PVI 01/01/16. A F [...] but may require atrial lead revision. 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 0 .3% AF burden. S he would like this removed when she comes in for followup 12/2018. Reynaldo [facility] Electrophysiology:s/ p PVI 01/01/16. A F [...] observe. 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 follows with [...] needs sleep study Reynaldo Flannery DO EP:prior [place] with stent, good LVF Reynaldo Flannery DO EP:ONLY SINgle episo de documented on Cardionet monitor, and pt unsure if she has ever had prior events. C [id number] =3 s uggest Reveal monitor to quanitate [...] EKG Camron tate MD completed EKG Reynaldo Camuy DO completed EKG Reynaldo Camuy DO completed EKG Renyaldo Camuy DO completed EKG Reynaldo Camuy DO completed EKG Reynaldo Camuy DO completed ICM Interrogation, Remote (Prof) Reynaldo Camuy DO INTERROGATION EVAL REMOTE </30 D CV MNTR SYS completed ICM Interrogation, Remote (Tech) Reynaldo Camuy DO INTERROGATION EVAL REMOTE </30 D TECH REVIEW completed ICM Interrogation, Remote (Prof) Reynaldo Camuy DO INTERROGATION EVAL REMOTE </30 D CV MNTR SYS completed ICM Interrogation, Remote (Tech) Reynaldo Camuy DO INTERROGATION EVAL REMOTE </30 D TECH REVIEW completed EKG Reynaldo Camuy DO completed ICM Interrogation, Remote (Prof) Reynaldo Camuy DO INTERROGATION EVAL REMOTE </30 D CV MNTR SYS completed ICM Interrogation, Remote (Tech) Reynaldo Camuy DO INTERROGATION EVAL REMOTE </30 D TECH REVIEW completed EKG Reynaldo Camuy DO completed EKG Reynaldo Camuy DO completed Loop Recorder Interrogation, Remote Reynaldo Camuy DO INTERROGATION EVALUATION REMOTE </30 D ILR SYS completed ICM Interrogation, Remote (Tech) Reynaldo Camuy DO INTERROGATION EVAL REMOTE </30 D TECH REVIEW completed Pacemaker Interrogation, Remote (Tech) Reynaldo Camuy DO INTERROGATION REMOTE </90 D BEDSPRING ASSEMBLER REVIEW completed Pacemaker Interrogation, Remote (Prof) Reynaldo Camuy DO INTERROGATION EVAL REMOTE </90 D 1/2/POT LINING SUPERVISOR LEAD P completed Schedule Followup Reynaldo Glascoc k DO in 6 mo completed EKG Reynaldo Camuy DO completed Loop Recorder Interrogation, Remote Reynaldo Camuy DO INTERROGATION EVALUATION REMOTE </30 D ILR SYS completed ICM Interrogation, Remote (Tech) Reynaldo Camuy DO INTERROGATION EVAL REMOTE </30 D TECH REVIEW completed Loop Recorder Interrogation, Remote Reynaldo Camuy DO INTERROGATION EVALUATION REMOTE </30 D ILR SYS completed ICM Interrogation, Remote (Tech) Reynaldo Camuy DO INTERROGATION EVAL REMOTE </30 D TECH REVIEW completed Loop Recorder Interrogation, Remote Reynaldo Camuy DO INTERROGATION EVALUATION REMOTE </30 D ILR SYS completed ICM Interrogation, Remote (Tech) Reynaldo Camuy DO INTERROGATION EVAL REMOTE </30 D TECH REVIEW completed Loop Recorder Interrogation, Remote Reynaldo Camuy DO INTERROGATION EVALUATION REMOTE </30 D ILR SYS completed ICM Interrogation, Remote (Tech) Reynaldo Camuy DO INTERROGATION EVAL REMOTE </30 D TECH REVIEW completed Loop Recorder Interrogation, Remote Reynaldo Camuy DO INTERROGATION EVALUATION REMOTE </30 D ILR SYS completed ICM Interrogation, Remote (Tech) Reynaldo Camuy DO INTERROGATION EVAL REMOTE </30 D TECH REVIEW completed Schedule Followup Reynaldo Glascoc k DO completed EKG Reynaldo Camuy DO completed Loop Recorder Interrogation, Remote Reynaldo Camuy DO INTERROGATION EVALUATION REMOTE </30 D ILR SYS completed ICM Interrogation, Remote (Tech) Reynaldo Camuy DO INTERROGATION EVAL REMOTE </30 D TECH REVIEW completed Loop Recorder Interrogation, Remote Reynaldo Camuy DO INTERROGATION EVALUATION REMOTE </30 D ILR SYS completed ICM Interrogation, Remote (Tech) Reynaldo Camuy DO INTERROGATION EVAL REMOTE </30 D TECH REVIEW completed Loop Recorder Interrogation, Remote Reynaldo Camuy DO INTERROGATION EVALUATION REMOTE </30 D ILR SYS completed ICM Interrogation, Remote (Tech) Reynaldo Camuy DO INTERROGATION EVAL REMOTE </30 D TECH REVIEW completed EKG Reynaldo Camuy DO completed Loop Recorder Interrogation, Remote Reynaldo Camuy DO INTERROGATION EVALUATION REMOTE </30 D ILR SYS completed ICM Interrogation, Remote (Tech) Reynaldo Camuy DO INTERROGATION EVAL REMOTE </30 D TECH REVIEW completed Loop Recorder Interrogation, Remote Reynaldo Camuy DO INTERROGATION EVALUATION REMOTE </30 D ILR SYS completed ICM Interrogation, Remote (Tech) Reynaldo Camuy DO INTERROGATION EVAL REMOTE </30 D TECH REVIEW completed Loop Recorder Interrogation, Remote Reynaldo Camuy DO INTERROGATION EVALUATION REMOTE </30 D ILR SYS completed ICM Interrogation, Remote (Tech) Reynaldo Camuy DO INTERROGATION EVAL REMOTE </30 D TECH REVIEW completed Loop Recorder Interrogation, Remote Reynaldo Camuy DO INTERROGATION EVALUATION REMOTE </30 D ILR SYS completed ICM Interrogation, Remote (Tech) Reynaldo Camuy DO INTERROGATION EVAL REMOTE </30 D TECH REVIEW completed Loop Recorder Interrogation, Remote Reynaldo Camuy DO INTERROGATION EVALUATION REMOTE </30 D ILR SYS completed ICM Interrogation, Remote (Tech) Reynaldo Camuy DO INTERROGATION EVAL REMOTE </30 D TECH REVIEW completed Loop Recorder Interrogation, Remote Reynaldo Camuy DO INTERROGATION EVALUATION REMOTE </30 D ILR SYS completed ICM Interrogation, Remote (Tech) Reynaldo Camuy DO INTERROGATION EVAL REMOTE </30 D TECH REVIEW completed Loop Recorder Interrogation, Remote Reynaldo Camuy DO INTERROGATION EVALUATION REMOTE </30 D ILR SYS completed ICM Interrogation, Remote (Tech) Reynaldo Camuy DO INTERROGATION EVAL REMOTE </30 D TECH REVIEW completed Schedule Followup Reynaldo Glascoc k DO completed EKG Reynaldo Camuy DO completed SNOMED-CT: [id number] Current Medications Documented Reynaldo Camuy DO completed Loop Recorder Interrogation, Remote Reynaldo Camuy DO INTERROGATION EVALUATION REMOTE </30 D ILR SYS completed ICM Interrogation, Remote (Tech) Reynaldo Camuy DO INTERROGATION EVAL REMOTE </30 D TECH REVIEW completed Loop Recorder Interrogation, Remote Reynaldo Camuy DO INTERROGATION EVALUATION REMOTE </30 D ILR SYS completed ICM Interrogation, Remote (Tech) Reynaldo Camuy DO INTERROGATION EVAL REMOTE </30 D TECH REVIEW completed Loop Recorder Interrogation, Remote Reynaldo Camuy DO INTERROGATION EVALUATION REMOTE </30 D ILR SYS completed ICM Interrogation, Remote (Tech) Reynaldo Camuy DO INTERROGATION EVAL REMOTE </30 D TECH REVIEW completed Schedule Followup Reynaldo Glascoc k DO in two months completed EKG Reynaldo Camuy DO completed SNOMED-CT: [id number] Current Medications Documented Reynaldo Camuy DO completed Loop Recorder Interrogation, Remote Reynaldo Camuy DO INTERROGATION EVALUATION REMOTE </30 D ILR SYS completed ICM Interrogation, Remote (Tech) Reynaldo Camuy DO INTERROGATION EVAL REMOTE </30 D TECH REVIEW completed Loop Recorder Interrogation, Remote Reynaldo Camuy DO INTERROGATION EVALUATION REMOTE </30 D ILR SYS completed ICM Interrogation, Remote (Tech) Reynaldo Camuy DO INTERROGATION EVAL REMOTE </30 D TECH REVIEW completed Loop Recorder Interrogation, Remote Reynaldo Camuy DO INTERROGATION EVALUATION REMOTE </30 D ILR SYS completed ICM Interrogation, Remote (Tech) Reynaldo Camuy DO INTERROGATION EVAL REMOTE </30 D TECH REVIEW completed Loop Recorder Interrogation, Remote Reynaldo Camuy DO INTERROGATION EVALUATION REMOTE </30 D ILR SYS completed ICM Interrogation, Remote (Tech) Reynaldo Camuy DO INTERROGATION EVAL REMOTE </30 D TECH REVIEW completed Loop Recorder Interrogation, Remote Reynaldo Camuy DO INTERROGATION EVALUATION REMOTE </30 D ILR SYS completed ICM Interrogation, Remote (Tech) Reynaldo Camuy DO INTERROGATION EVAL REMOTE </30 D TECH REVIEW completed Loop Recorder Interrogation, Remote Reynaldo Camuy DO INTERROGATION EVALUATION REMOTE </30 D ILR SYS completed ICM Interrogation, Remote (Tech) Reynaldo Camuy DO INTERROGATION EVAL REMOTE </30 D TECH REVIEW completed EKG Reynaldo Camuy DO completed SNOMED-CT: [id number] Current Medications Documented Reynaldo Camuy DO completed Loop Recorder Interrogation, Remote Reynaldo Camuy DO INTERROGATION EVALUATION REMOTE </30 D ILR SYS completed ICM Interrogation, Remote (Tech) Reynaldo Camuy DO INTERROGATION EVAL REMOTE </30 D TECH REVIEW completed Loop Recorder Interrogation, Remote Reynaldo Camuy DO INTERROGATION EVALUATION REMOTE </30 D ILR SYS completed ICM Interrogation, Remote (Tech) Reynaldo Camuy DO INTERROGATION EVAL REMOTE </30 D TECH REVIEW completed SNOMED-CT: [id number] Current Medications Documented Reynaldo Camuy DO completed EKG Reynaldo Camuy DO completed Loop Recorder Interrogation, Remote Reynaldo Camuy DO INTERROGATION EVALUATION REMOTE </30 D ILR SYS completed ICM Interrogation, Remote (Tech) Reynaldo Camuy DO INTERROGATION EVAL REMOTE </30 D TECH REVIEW completed Loop Recorder Interrogation, Remote Reynaldo Camuy DO INTERROGATION EVALUATION REMOTE </30 D ILR SYS completed ICM Interrogation, Remote (Tech) Reynaldo Flannery DO INTERROGATION EVAL REMOTE </30 D TECH REVIEW completed SNOMED-CT: [id number] Current Medications Documented Reynaldo Flannery DO completed EKG Reynaldo Flannery DO completed
--- OUTSIDE RECORDS SUMMARY | 2024-06-21 12:15 | XMS_ITS | Clinical Summary ---
Author Organization [facility] Address [address] [place] [address] Care Team Providers Care Supervisor Paste Plant Name Role Phone Reynaldo Flannery DO Unavailable [phone] Guanakito Holland MD Unavailable [phone] Jaleel Mcgovern MD Primary Care Provider [phone] Allergies Active Allergy Reactions Criticality Noted Date [...] is to continue close follow-up with local newborn hearing screener and therefore would like to discuss with [...] needed. Assessment & Plan (03/12/2017 2:39 PM PRESS OFFICER): Patient has Xanax for p.r.n. use. She is somewhat afraid to use this medication. She notes a positive response when she needs it. She states she is having panic attacks once to twice a month at [place]. She has been logging these since December. She states her anxiety/panic began after her . She has not been in for any formal counseling since his passing. She did see someone at [facility] for [facility]. We discussed Senior renewal. She declines at the present time. She would like to continue to monitor her panic attacks and was instructed to use Xanax as previously prescribed on an as needed basis. Coronary artery disease invo lving [place] coronary artery of [place] heart 12/25/2016 Overview (04/19/2019): Status post PCI in June 2013 (RL). Normal Cardiolite in August 2014. Assessment & Plan (08/29/2022 9:25 PM CDT): Denies any chest pain or anginal equivalent. Recent drop in her LVEF to 20% from 40% with unclear etiology. Continue aspirin, metoprolol and Crestor. Would like to discuss with her local newborn hearing screener about additional ischemic workup as she plans [...] given Assessment & Plan (03/12/2017 2:37 PM PRESS OFFICER): Blood pressure is slightly elevated during office [...] is less than 70. Will discuss local newborn hearing screener about statin therapy and possible PCSK9 inhibitor. [...] 06/24/2017 Assessment & Plan (03/12/2017 2:39 PM PRESS OFFICER): Influenza A negative influenza B negative. Sore throat 03/12/2017 06/24/2017 Assessment & Plan (03/12/2017 2:39 PM PRESS OFFICER): Rapid strep negative. Viral URI with cough 03/12/2017 018 Assessment & Plan (03/12/2017 2:40 PM PRESS OFFICER): Humidification, fluids, and rest were recommended. Patient [...] AM CDT): Routinely follows-up with at [facility]. NSR today in office. Cnt. Serna for anticoagulation Assessment & Plan (03/12/2017 2:37 PM PRESS OFFICER): Patient will continue routine follow-up with Dr. Pennie pierre and local newborn hearing screener as recommended. She reports compliance with her [...] Type Department Care Team Description 06/04/2024 Telephone [facility] Cardiology [address] [place] [address] Mannie Hernandez MD 05/04/2024 9:45 AM PRESS OFFICER Ancillary Procedure [facility] Card[facility] [address] [address] Cardiac pacemaker in situ (Primary Dx); Paroxysmal atrial fibrillation (HCC); Sick sinus syndrome (HCC) 04/16/2024 11:00 AM PRESS OFFICER Office Visit [facility] Cardiology at [address] [place] [address] Mannie Hernandez MD Coronary artery disease involving [place] coronary artery of [place] heart without angina pectoris (Primary Dx); History of coronary artery stent placement; Cardiac pacemaker in situ; Permanent atrial fibrillation (HCC) from Last 3 Months Immunizations Immunization Administration Dates Next Due Influenza, [...] Fibrilla tion; Outcome: heart ablation Aortic aneurysm Pt states found by ultrasound upper abd. History of loop recorder Vertigo Sleep apnea Depression Arthritis Dysphagia Diverticulosis Colon polyp Myocardial infarction (HCC) 2014 CHF (congestive heart failure) (HCC) Atrial fibrillation (HCC) Stroke (HCC) Family History Medical History [...] o f : Angina Diabetes Sister 1 [place] Heart attack Sister 1 [place] Heart disease Sister 1 [place] Other Sister 3 DM, CAD; Other Sister 4 Valve Replaceme nt; Relation Name Status Comments Brother 1 68 Brother 2 79 Child Daughter Chelle Jara Father Derek (Age 79) Maternal Grandmother Grandma Mother (Age 93) Sister 1 [place] Alive Sister 2 Alive Sister 3 Sister [...] Recorded Patient Health Questionnaire-2 Score 0 08/23/2022 [facility] [employer] [facility] [place] of Occupat ional Health - Occupational Stress [...] on file Legal Sex Female 11:18 AM PRESS OFFICER Gender Identity Female 10/09/2022 9:08 AM [...] Comments Blood Pressure 112/72 04/16/2024 10:42 AM PRESS OFFICER Pulse 79 04/16/2024 10:42 AM PRESS OFFICER Temperature 36.4 C (97.6 F) 10/24/2022 11:50 AM CDT Respiratory Rate 18 10/24/2022 11:50 AM CDT Oxygen Saturation 95% 04/16/2024 10:42 AM PRESS OFFICER Inhaled Oxygen Concentration - - Weight 61.7 kg (136 lb) 04/16/2024 10:42 AM PRESS OFFICER Height 154.9 cm (5' 1 ) 04/16/2024 10:42 AM PRESS OFFICER Body Mass Index 25.7 04/16/2024 10:42 AM PRESS OFFICER Plan of Treatment Health Maintenance Due Date Last Done Comments DTaP/Tdap/Td Vaccine (1 - Tdap) 1951 Hepatitis B Screening 1958 Pneumococcal vaccine 65+ (1 of 1 - PCV) 1990 Zoster Vaccine (1 of 2) 1990 Osteoporosis Screening-Bone Density Scan 11/14/2016 11/14/2014, 11/06/2012 [...] 05/25/2019, 01/06/2017 Medical Devices Implanted Type Area Configuration Specialist Device Identifier Shelf Expiration Date Model / Serial / Lot Biotronik Inc [id number] Endocardial Pacing Lead Promri Solia Jt 45 - [id number] - [id number] Implanted:Qty: 1 on 07/29/2018 by Guanakito Holland MD at [facility] Lead Bi[employer] Inc 12/22/2019 [id number] / [id number] / [employer] Inc [id number] Endocardial Pacing Lead Promri Solia T 53 - [id number] - [id number] Implanted:Qty: 1 on 07/29/2018 by Guanakito Holland MD at [facility] Lead [employer] 12/22/2019 [id number] / [id number] / Bi[employer]ik Inc [id number] Solia S 45cm Bipolar Active Fixation Lead Pacing Steroid Eluting - [id number] - [id number] Implanted:Qty: 1 on 09/14/2018 by Reynaldo Flannery DO at [facility] Lead [employer] [id number] 05/21/2020 [id number] / [id number] / [id number] Bi[employer] Inc [id number] Edora Promri 69w38o0.5mm 1 Chamber Rate Adaptive Unipolar Bipolar - [id number] - [id number] Implanted:Qty: 1 on 07/29/2018 by Guanakito Holland MD at [facility] Pacemaker [employer] 11/22/2019 [id number] / [id number] / Medtronic Cardiac Rhythm Mgmt [id number] Tyrx 2.7x2.5in Medium Envelope Absorbable Polyarylate Minocycline - [id number] Implanted:Qty: 1 on 09/14/2018 by Reynaldo Flannery DO at [facility] Med[employer] Inc 10/21/2018 [id number] / / [id number] Chinchilla Vascular Perclose 6fr Vascular Closure [id number] - [id number] Implanted:Qty: 1 on 08/03/2022 at [facility] [employer] 03/23/2024 1267 3-03 / / [id number] Procedures Procedure Name Priority Date/Time Associated Diagnosis Comments DEVICE CHECK - REMOTE Routine 05/04/2024 8:30 AM PRESS OFFICER Paroxysmal atrial fibrillation (HCC) Sick sinus syndrome (HCC) SCREENING MAMMOGRAM BILATERAL W OSCAR Schedule Routine, Read Routine (OP Routine) 04/06/2020 1:21 PM PRESS OFFICER Visit for screening mammogram Essential hypertension Mixed hyperlipidemia COLONOSCOPY Routine 05/26/2019 HM DEXA SCAN Routine 11/14/2014 from Last 3 Months or Most Recently Relevant to Health Maintenance Results * DEVICE CHECK - REMOTE (05/04/2024 8:30 AM PRESS OFFICER) Anatomical Region Laterality Modality Other Narrative 05/25/2024 10:31 AM PRESS OFFICER Biotronik Dual Pacemaker. Dx; SSS, Afib. DOI 07/29/2018-Dr Holland. RA Lead replaced 09/14/18. AV Node Ablation 12/2018. Routine VVI CLS Pacemaker Remote. Transmission attached. Battery status: OK, 45% remaining battery life to LEANA. Stable lead impedances, pacing and sensing thresholds. Presenting rhythm: VS-PHARM SPEC PHARM SPEC-88% No AT/AF episodes noted. No Ventricular high rate episodes detected. Medications: Eliquis 5 mg, ASA 81 mg, Entresto See scanned report. Office pacemaker follow up: 6 months Biotronik remote f/u 08/03/24. Wing Reich RN us Mannie Hernandez MD [facility] PROC EDURES Final Result * Screening Mammogram Bilateral W Oscar (04/06/2020 1:21 PM PRESS OFFICER) Anatomical Region Laterality Modality Breast Bilateral Mammography 04/06/2020 2:09 PM PRESS OFFICER Impressions 04/06/2020 3:13 PM PRESS OFFICER There is no mammographic evidence of malignancy. A 1 year screening mammogram is recommended. BI-RADS: 2 - Benign. The patient will be entered into a reminder system with a target due date of 1 year for her next mammogram. Electronically signed by: Micaela Jang MD Narrative 04/06/2020 3:13 PM PRESS OFFICER EXAMINATION: SCREENING MAMMOGRAM BILATERAL W OSCAR ORDERING [...] Recently Relevant to Health Maintenance Insurance MEDICARE [facility] MEDICARE [facility] BLUE CROSS MEDICARE SUPPLEMENT MEDICARE BLUE CROSS MEDICARE SUPPLEMENT MEDICARE [facility] Advance Directives For more information, please contact: [phone] * LIMITED - No CPR (Latest Code [...] 11:36 AM 10/19/2019 7:30 PM Care Teams Supervisor Paste Plant Relationship Specialty Start Date End Date Jaleel Mcgovern MD PCP - General Family Practice 07/18/22 Reynaldo Flannery DO Consulting Physician Cardiology 09/26/17 Guanakito Holland MD Consulting Physician Cardiovascular Disease 07/29/18
[2024-06-21 12:23] LABS: Mean Platelet Volume 10.2 fl (7.4-10.4); Platelet Count Result 219 k/mm3 (150-375)
[2024-06-21 12:34] LABS: INR 1.2
[2024-06-21] MEDS: ACETAMINOPHEN 500 MG TABLET 1000 MG PO (14:09)
[2024-06-21 14:28] LABS: pH Pleural Fluid > 7.500 (7.210-7.500)
[2024-06-21 14:52] LABS: Appearance Pleural Fluid Hazy (Clear); Color Pleural Fluid Yellow (Colorless); Pleural fluid source Pleural fluid
[2024-06-21 14:53] LABS: Neutrophils Pleural Fluid 6 % (0-25)
[2024-06-21 14:54] LABS: Lymphocytes Pleural Fluid 71 %; Macrophages Pleural Fluid 8 %; Monocytes Pleural Fluid 15 %
== END 2024-06-21 15:43 | disposition home or self-care (01) ==
PROVIDERS: PCP Family Medicine; Referring Provider Internal Medicine Critical Care Medicine; Visit Provider Radiology Diagnostic Radiology
DX: J90 Pleural effusion, not elsewhere classified (principal)
CPT/HCPCS: 32555; 36415; 82945; 83615; 83986; 84157; 84311; 85049; 85610; 87015; 87070; 87075; 87116; 87205; 87206; 89051; A9270

== ENCOUNTER 2024-08-13 09:44 | Outpatient (CLI) | payer MEDICARE, SELFPAY ==
--- NOTE | ~2024-08-13 | XR_ITS ---
EXAMINATION: XR chest 2V 08/13/2024 10:03 INDICATION: Pleural effusion PROCEDURE: 2 view chest COMPARISON: Comparison to multiple prior studies sequentially, with oldest reviewed study dated 05/2024. FINDINGS: The lungs are clear. The cardiomediastinal silhouette is borderline.. Decreased size of le ft pleural effusion. Pacemaker leads are stable. There is no pneumothorax suspected. IMPRESSION: 1: Decreased size of small left effusion. Reviewed, dictated and finalized at location []
--- OUTSIDE RECORDS SUMMARY | 2024-08-13 09:50 | XMS_ITS | Encounter Summary ---
Author Organization [facility] Address [address] [place] [address] Care Team Providers Care Concierge Name Role Phone Reynaldo Flannery DO Unavailable [phone] Guanakito Holland MD Unavailable [phone] Jaleel Mcgovern MD Primary Care Provider [phone] Encounter Details Date Type Department Care Team (Late st Contact Info) Description 08/12/2022 Telephone [facility] Medicine and Rehabilitation [address] [place] [address] Kimberly Gibbons, MANAGER HOSPICE Social History Tobacco Use Types Packs/Day Years [...] or relatives? 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 Question Answer Date of Assessment Author Little interest or pleasure in doing things Not at all 08/12/2022 2:22 PM Yissel Doshi , OPTICAL INSTRUMENT INSPECTOR Feeling down, depressed, or hopeless Not at all 08/12/2022 2:22 PM BENJAT Yissel Ayers , OPTICAL INSTRUMENT INSPECTOR Trouble falling or staying asleep, or sleeping too much Several days 08/12/2022 2:22 PM BENJAT Miles Ayers, OPTICAL INSTRUMENT INSPECTOR Feeling tired or having little energy Several days 08/12/2022 2:22 PM BENJAT Yissel Ayers , OPTICAL INSTRUMENT INSPECTOR Poor appetite or overeating Not at all 08/12/2022 2: 22 PM Yissel Doshi, OPTICAL INSTRUMENT INSPECTOR Feeling bad about yourself - or that you are a failure or have let yourself or your family down Not at all 08/12/2022 2:22 PM Yissel Doshi , OPTICAL INSTRUMENT INSPECTOR Trouble concentrating on things, such as reading the newspaper or watching television Not at all 08/12/2022 2:22 PM BENJAT Yissel Ayers , OPTICAL INSTRUMENT INSPECTOR Moving or speaking so slowly that other people could have noticed? Or the opposite - being so fidgety or restless that you have been moving around a lot more than usual. Not at all 08/12/2022 2:22 PM Yissel Doshi , OPTICAL INSTRUMENT INSPECTOR Thoughts that you would be better off or hurting yourself in some way Not at all 08/12/2022 2:22 PM Yissel Doshi, OPTICAL INSTRUMENT INSPECTOR Patient Health Questionnaire-9 Score 2 08/12/2022 2:22 PM Yissel Doshi OPTICAL INSTRUMENT INSPECTOR documented as of this encounter Miscellaneous Notes * Pre-Admission Screening - Kimberly Gibbons SLP - 08/12/2022 9:44 AM CDT [facility] Preadmission Screening Reason [...] level of care. Patient is currently at [facility] . The patient is being referred and [...] Payor Source: Primary: Medicare A&B Secondary:Policy number: [id number] Case discussed with Dr. Nena Oneal on [...] Use: Not on file Patient's Preferred Language: Hungarian Cultural Requests During Hospitalization: none conveyed Acute [...] DAPT who presents after receiving TNK at [facility] as a thrombectomy page. Per the patient's family at bedside, the patient was having lunch with one of her daughters when her daughter noticed that she started leaning towards the right. She subsequently became mute and developed a left gaze preference. Her last known normal was 1305. She was[facility] to [facility], there her NIHSS was reportedly a [address] physician[address]. Gomez evaluated the patient by telestroke and recommended a CTH + CTA head and neck. She had a hyperdense left MCA sign on CTH and a left M1 occlusion on CTA. She was a GO for TNK and received the drug at 1423.She was then transferred to [facility] for thrombectomy evaluation. On arrival her NIHSS [...] DAPT who presents after receiving TNK at [facility] as a thrombectomy page. The patient is [...] a 82y/o female with PMH of CAD, HI, SSS s/p Biotronik pacemaker, Atrial fibrillation (previously [...] BP of 68/31. She was taken to [facility] for further evaluation as a Code [...] of TNK at 14:28 and transferred to [facility] ED for mechanical thrombectomy evaluation. Upon arrival to [facility] ED her vital signs were: HR 82, [...] RA lead revision on 09/14/18 done at [facility]), non-morbid obesity (BMI 30), GENNY non compliant with CPAP, PAD and carotid artery stenosis who presented to [facility] on 08/03/22 with R si ded hemiparesis, [...] their arrival. She was initially taken to [facility] to evaluation for stroke. Her BP's improved to 109/[address] Head showed a large hyperdense MCA without hemorrhage, then subsequent CTA Head/Neck showed complete occlusion of theM1 segment of the L MCA. There were also carotid stenoses in the proximal LICA (80%) and proximal SKYLAR (50%). Ms Giron was then transferred to [facility] for tPA and thrombectomy. Ms Giron had an HI in 2013 requiring JOI to mid LCx performed at [facility]. 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 [...] woman with past medical history of CAD, HI, SSS s/p Biotronikpacemaker, Atrial fibrillation (previously on [...] Work-up: - Monitor on telemetry Consults: SMART ([employer] Police Lieutenant, PT/OT, MANAGER HOSPICE, Spiritual Care) #Hyperlipidemia LDL on admission was 68. Goal LDL for secondary stroke prevention is <70. She has previously refused anti-lipid medication reporting feeling unwell on medicaiton and with muscle pain without weakness. # CAD s/p HI with stent placement (2013) # HFrEF (LVEF 20%, was LVEF 40% in 2019) She follows with Dr. Hernandez [facility] - last seen 07/18/22 in office. [...] BID and taking intermittently, however her pharmacy ([facility]) indicates she does not fill this medication [...] in the field was 68/31, 90/45 at [facility]. Initially responded to fluid boluses. Noted to [...] a 82y/o female with PMH of CAD, HI, SSS s/p Biotronik pacemaker, Atrial fibrillation (previously [...] BP of 68/31. She was taken to [facility] for further evaluation as a Code [...] of TNK at 14:28 and transferred to [facility] ED for mechanical thrombectomy evaluation. Upon arrival to [facility] ED her vital signs were: HR 82, [...] woman with past medical history of CAD, HI, SSS s/p Biotronikpacemaker, Atrial fibrillation (previously on [...] differential for consideration per TOAST criteria include: ugzetw-bn-drdecv embolism or cardioembolism. Cardioembolism is most likely [...] muscle pain without weakness. # CAD s/p HI with stent placement (2013) # HFrEF (LVEF 20%, was LVEF 40% in 2019) She follows with Dr. Hernandez [facility] - last seen 07/18/22 in office. [...] BID and taking intermittently, however her pharmacy ([facility]) indicates she does not fillthis medication and [...] admitted to acute: 08/03/22 Precautions/Restrictions: Aspiration, Falls Stevens Suicide Severity Rating Scale: Allergies: Allergies Allergen [...] bed mobility SBA (08/12/2022 9:31 AM) Cognition/Communication/Swallowing: MANAGER HOSPICE Communication: expressive aphasia (08/12/2022 9:31 AM) MANAGER HOSPICE Swallowing: Mild Dysphagia - pureed/thin (08/12/2022 9:31 AM) Conditions requiring acute rehab and risk for complications: Gait dysfunction - risk for falls and further injury, fracture Uncontrolled Hypertension - risk for stroke, stroke extension, HI Decreased mobility - Risk for Fall, skin [...] by a provider, Intense PT/OT/SP, Access to Loan Interviewer Mortgage physicians, Supervised feeding groups, Frequent Neuroassessment, Bowel Program, Modified Barium Swallow/FEES Alternative Level of Care considered and not appropriate due to: Consult physician oversight, Medication adjustment/oversight, Neurochecks, Daily MD oversight, Repeat swallow studies Patient/Caregiver Goals: Patient and Family Goals: to return home with caregiver assist and [facility] Cosigned by Opal Mace MD at 08/12/2022 [...] the intensive Inpatient rehabilitation program offered at [facility] . documented in this encounter Plan of Treatment Not on file documented as of this encounter Visit Diagnoses Not on filedocumented in this encounter Care Teams Concierge Relationship Specialty Start Date End Date Jaleel Mcgovern MD PCP - General Family Practice 07/18/22 Reynaldo Flannery DO Consulting Physician Cardiology 09/26/17 Guanakito Holland MD Consulting Physician Cardiovascular Disease 07/29/18 documented as of this encounter
--- OUTSIDE RECORDS SUMMARY | 2024-08-13 09:50 | XMS_ITS | Clinical Summary ---
Author Organization [facility] Address [address] [place] [address] Care Team Providers Care Sales Administration Manager Name Role Phone Reynaldo Flannery DO Unavailable [phone] Guanakito Holland MD Unavailable [phone] Jaleel Mcgovern MD Primary Care Provider [phone] Allergies Active Allergy Reactions Criticality Noted Date [...] a day Active apixaban (ELIQUIS) 5 mg tabletIndications :atrial fibrillation Take 1 tablet (5 mg total) by mouth every 12 (twelve) hours 180 tablet 3 4 02/27/20 25 Active sacubitriL-valsar sykes (ENTRESTO) 24-26 mg tabletIndications :chronic heart failure Take 1 tablet by mouth 2 (two) times a day 180 tablet 3 4 Active dapagliflozin propanediol (FARXIGA) 10 mg tabletIndications :Heart Failure Take 1 tablet (10 mg total) by mouth daily 90 tablet 3 5 05/31/19 26 Active sertraline (ZOLOFT) 25 mg tablet Take 1 tablet (25 mg total) by mouth daily Active Active Problems Problem Noted Date Diagnosed [...] is to continue close follow-up with local furnace process plant operator and therefore would like to discuss [...] needed. Assessment & Plan (03/12/2017 2:39 PM PSYCHIATRIC CLINICIAN): Patient has Xanax for p.r.n. use. She [...] his passing. She did see someone at [facility] for awhile. We discussed Senior renewal. She declines at the present time. She would like to continue to monitor her panic attacks and was instructed to use Xanax as previously prescribed on an as needed basis. 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 Normal Cardiolite in August 2014. Assessment & Plan (08/29/2022 9:25 PM CDT): Denies any chest pain or anginal equivalent. Recent drop in her LVEF to 20% from 40% with unclear etiology. Continue aspirin, metoprolol and Crestor. Would like to discuss with her local furnace process plant operator about additional ischemic workup as she [...] given Assessment & Plan (03/12/2017 2:37 PM PSYCHIATRIC CLINICIAN): Blood pressure is slightly elevated during office [...] is less than 70. Will discuss local furnace process plant operator about statin therapy and possible PCSK9 [...] 06/24/2017 Assessment & Plan (03/12/2017 2:39 PM PSYCHIATRIC CLINICIAN): Influenza A negative influenza B negative. Sore throat 03/12/2017 06/24/2017 Assessment & Plan (03/12/2017 2:39 PM PSYCHIATRIC CLINICIAN): Rapid strep negative. Viral URI with cough 03/12/2017 018 Assessment & Plan (03/12/2017 2:40 PM PSYCHIATRIC CLINICIAN): Humidification, fluids, and rest were recommended. Patient [...] anticoagulation Assessment & Plan (03/12/2017 2:37 PM PSYCHIATRIC CLINICIAN): Patient will continue routine follow-up with Dr. Pennie pierre and local furnace process plant operator as recommended. She reports compliance with [...] Encounters Date Type Department Care Team Description 08/03/2024 9:30 AM CDT Ancillary Procedure [facility] 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 without angina pectoris (Primary Dx); Cardiac pacemaker in situ; History of coronary artery stent placement; HFrEF (heart failure with reduced ejection fraction) (HCC); Permanent atrial fibrillation (HCC) 06/04/2024 Telephone [facility] [address] [place] [address] Mannie Hernandez MD from Last 3 Months Immunizations Immunization Administration [...] o f : Angina Diabetes Sister 1 Hamill Heart attack Sister 1 Hamill Heart disease Sister 1 Hamill Other Sister 3 DM, CAD; Other Sister 4 Valve Replaceme nt; Relation Name Status Comments Brother 1 68 Brother 2 79 Child Daughter Chelle Jara Father Derek (Age 79) Maternal Grandmother Grandma Mother (Age 93) Sister 1 Hamill Alive Sister 2 Alive Sister 3 Sister [...] Patient Health Questionnaire-2 Score 0 08/23/2022 [facility] [place] of Occupat ional Health - Occupational Stress [...] on file Legal Sex Female 11:18 AM PSYCHIATRIC CLINICIAN Gender Identity Female 10/09/2022 9:08 AM CDT [...] Sign Reading Time Taken Comments Blood Pressure 108/62 07/26/2024 11:24 AM CDT Pulse 79 07/26/2024 11:24 AM CDT Temperature 36.4 C (97.6 F) 10/24/2022 11:50 AM CDT Respiratory Rate 18 10/24/2022 11:50 AM CDT Oxygen Saturation 97% 07/26/2024 11:24 AM CDT Inhaled Oxygen Concentration - - Weight 60.3 kg (133 lb) 07/26/2024 11:24 AM CDT Height 154.9 cm (5' 1 ) 07/26/2024 11:24 AM CDT Body Mass Index 25.13 07/26/2024 11:24 AM CDT Plan of Treatment Health Maintenance Due Date [...] 08/24/2023 08/23/2022, 01/31/2020, 07/23/2019, Additional history exists Colon Cancer Screening-Colonoscopy 05/25/2024 05/26/2019, 05/25/2019, 01/06/2017 Influenza Vaccine (Season Ended) 2024 Colon Cancer Screening-CT Colonography Discontinued 05/26/2019, 05/25/2019, 01/06/2017 Colon Cancer Screening-DNA Stool Discontinued 05/26/2019, 05/25/2019, 01/16/2017, Additional history exists Colon Cancer Screening-FIT Discontinued 05/25, 05/25/2019, 01/16/2017, Additional history exists Colon Cancer Screening-Sigmoidoscopy Discontinued 05/26/2019, 05/25/2019, 01/06/2017 Medical Devices Implanted Type Area Bpm Solution Architect Device Identifier Shelf Expiration Date Model / Serial / Lot [employer] [id number] Endocardial Pacing Lead Promri Polinasegundo Jt 45 - [id number] - [id number] Implanted:Qty: 1 on 07/29/2018 by Guanakito Holland MD at [facility] Lead [employer] 12/22/2019 [id number] / [id number] / [employer] [id number] Endocardial Pacing Lead Promri Solia T 53 - [id number] - [id number] Implanted:Qty: 1 on 07/29/2018 by Guanakito Holland MD at [facility] Lead [employer] 12/22/2019 [id number] / [id number] / [employer] [id number] Solia S 45cm Bipolar Active Fixation Lead Pacing Steroid Eluting - [id number] - [id number] Implanted:Qty: 1 on 09/14/2018 by Reynaldo Flannery DO at [facility] Lead [employer] [id number] 05/21/2020 [id number] / [id number] / [id number] [employer] [id number] Edora Promri 07m09p7.5mm 1 Chamber Rate Adaptive Unipolar Bipolar - [id number] - [id number] Implanted:Qty: 1 on 07/29/2018 by Guanakito Holland MD at [facility] Pacemaker [employer] 11/22/2019 [id number] / [id number] / Med[employer]onic Cardiac Rhythm Mgmt [id number] Tyrx 2.7x2.5in Medium Envelope Absorbable Polyarylate Minocycline - [id number] Implanted:Qty: 1 on 09/14/2018 by Reynaldo Flannery DO at [facility] [employer] 10/21/2018 [id number] / / [id number] Ch[employer]illa Vascular Perclose 6fr Vascular Closure [id number] - [id number] Implanted:Qty: 1 on 08/03/2022 at [facility] [employer] 03/23/2024 1267 3-03 / / [id number] Procedures Procedure Name Priority Date/Time Associated Diagnosis Comments SCREENING MAMMOGRAM BILATERAL W OSCAR Schedule Routine, Read Routine (OP Routine) 04/06/2020 1:21 PM PSYCHIATRIC CLINICIAN Visit for screening mammogram Essential hypertension Mixed hyperlipidemia COLONOSCOPY Routine 05/26/2019 HM DEXA SCAN Routine 11/14/2014 from Last 3 Months or Most Recently Relevant to Health Maintenance Results * Screening Mammogram Bilateral W Oscar (04/06/2020 1:21 PM PSYCHIATRIC CLINICIAN) Anatomical Region Laterality Modality Breast Bilateral Mammography 04/06/2020 2:09 PM PSYCHIATRIC CLINICIAN Impressions 04/06/2020 3:13 PM PSYCHIATRIC CLINICIAN There is no mammographic evidence of malignancy. A 1 year screening mammogram is recommended. BI-RADS: 2 - Benign. The patient will be entered into a reminder system with a target due date of 1 year for her next mammogram. Electronically signed by: Micaela Jang MD Narrative 04/06/2020 3:13 PM PSYCHIATRIC CLINICIAN EXAMINATION: SCREENING MAMMOGRAM BILATERAL W OSCAR ORDERING [...] Recently Relevant to Health Maintenance Insurance [facility] BLUE CROSS MEDICARE SUPPLEMENT MEDICARE BLUE CROSS MEDICARE SUPPLEMENT [facility]ARE [facility] Advance Directives For more information, please contact: [phone] * LIMITED - No CPR (Latest Code [...] 11:36 AM 10/19/2019 7:30 PM Care Teams Sales Administration Manager Relationship Specialty Start Date End Date Jaleel Mcgovern MD PCP - General Family Practice 07/18/22 Reynaldo Flannery DO Consulting Physician Cardiology 09/26/17 Guanakito Holland MD Consulting Physician Cardiovascular Disease 07/29/18
--- OUTSIDE RECORDS SUMMARY | 2024-08-13 09:50 | XMS_ITS | Patient Health Record ---
Author Organization [facility] Address [address] [place] [address] Care Team Providers Care Animal Husbandry Teacher Name Role Phone VIMAL RAY Unavailable [phone] Reason For Referral No Information Plan Of Treatment No Information Insurance Providers Payer Name Payer Address Payer Phone Subscriber Number Group Number Insured Name Patient Relationship to Insured Coverage Start Date Coverage End Date MEDICARE [place] [address] [address] [place], [place] [id number] GironLanceie Self - patient is the insured 6 MEDICARE [place] [address] [place], [place] [id number] MackLanceie Self - patient is the insured 6 [facility] [address] [place] [address] [id number] GironLanceie Self - patient is the insured 6
--- OUTSIDE RECORDS SUMMARY | 2024-08-13 09:50 | XMS_ITS | CONTINUITY OF CARE DOCUMENT ---
Author Name marielos marielos Address Unknown Organization [facility] Address [address] [place] [address] Phone [phone] Care Team Providers Care Estimating Engineer Name Role Phone Willis APPIAH, Camron Unavailable RYAN ANDERS MD Unavailable [phone] RYAN ANDERS MD Unavailable [phone] PROBLEMS Condition Status Date Provider Notes Shortness [...] Sick sinus syndrome active Reynaldo Flannery DO penitentiary drug therapy (Amio darone)- [facility] follows active Reynaldo Flannery DO Fatigue active Lizbet Delgado NP AAA active Lizbet Delgado NP ENCOUNTERS Date Type Provider Location Encounter Diagnosis - In-person encounter Office Visit Camron Pedro MD [facility] AAA - In-person encounter Office Visit Reynaldo Flannery DO [facility] - In-person encounter Office Visit Reynaldo Flannery [facility] Fatigue - In-person encounter Office Visit Reynaldo Flannery [facility] Office - In-person encounter Office Visit Reynaldo Flannery [facility] Office - In-person encounter Office Visit Reynaldo Flannery [facility] Office - In-person encounter Office Visit Reynaldo Flannery DO [facility]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)- [facility] follows - In-person encounter Office Visit Reynaldo Flannery [facility] Office - In-person encounter Office Visit Reynaldo Flannery [facility] Office - In-person encounter Office Visit Reynaldo Flannery [facility] Status Post Medtronic (MRI Safe) REVEAL/LinQ - In-person encounter Office Visit Reynaldo Flannery [facility] - [facility] - [facility] VITAL SIGNS Date Observation Value Provider [...] Mass Index (Ratio) 27.36 kg/m2 Denn is Erie DO blood pressure, cuff size regular Kr is Deming blood pressure, diastolic 70 mm[Hg] Kr ty Hieu blood pressure, systolic 100 mm[Hg] [facility] [place] oxygen saturation, oximetry 98 % Bria Hieu pulse rate 92 /min Bria [place] respiratory rate E&M 18 /min Bria [place] weight E&M 147.2 [lb_av] Bria Hiue height E&M 61.5 [in_i] Bria Hieu Body Mass Index (Ratio) 30.11 kg/m2 Denn is Erie DO blood pressure, cuff size regular Ke [...] Mass Index (Ratio) 31.37 kg/m2 Denn is Erie DO pulse rate 67 /min Bria Hieu oxygen saturation, oximetry 95 % Bria Deming blood pressure, diastolic 80 mm[Hg] Kr isty Hieu blood pressure, systolic 140 mm[Hg] Kri sty Hieu respiratory rate E&M 18 /min Bria Hieu weight E&M 168.8 [lb_av] Bria Deming height E&M 61.5 [in_i] Bria Deming Body Mass Index (Ratio) 32.53 kg/m2 Carson [...] Mass Index (Ratio) 31.45 kg/m2 Denn is Erie DO blood pressure, cuff size regular Kr isty [place]ing blood pressure, diastolic 70 mm[Hg] Kr isty [place] blood pressure, systolic 122 mm[Hg] Kri sty Hieu oxygen saturation, oximetry 98 % Bria Hieu respiratory rate E&M 17 /min Bria [place]ing pulse rate 101 /min Bria Hieu weight E&M 169.2 [lb_av] Bria Deming height E&M 61.5 [in_i] Bria Hieu Body Mass Index (Ratio) 30.85 kg/m2 Denn is Erie DO blood pressure, diastolic 92 mm[Hg] Ananda Gordon-Octavio blood pressure, systolic 140 mm[Hg] Kizzy Gordon-Octavio oxygen saturation, oximetry 97 % Marilia Gordon-Octavio pulse rate 67 /min Marilia Gordon- Octavio weight E&M 166 [lb_av] Marilia Gordon- Octavio height E&M 61.5 [in_i] Marilia Gordon- Octvaio Body Mass Index (Ratio) 30.67 kg/m2 Carson [...] blood pressure, systolic 124 mm[Hg] Carlosi stlena Hieu respiratory rate E&M 18 /min Bria Hieu oxygen saturation, oximetry 96 % Bria Deming pulse rate 107 /min Bria Hieu weight E&M 163 [lb_av] Bria Deming height E&M 61.5 [in_i] Bria Hieu Body Mass Index (Ratio) 30.48 kg/m2 Denn is Erie DO oxygen saturation, oximetry 98 % Quiqueity Denia blood pressure, diastolic 84 mm[Hg] astity Denia blood pressure, systolic 142 mm[Hg] Suri stity Denia pulse rate 60 /min Chastity Denia respiratory rate E&M 16 /min Chastit y Denia weight E&M 164 [lb_av] Suristity Denia height E&M 61.5 [in_i] Suristity Denia Body Mass Index (Ratio) 30.30 kg/m2 Chiquita Yu BELLHOP blood pressure, cuff size large Ke rri [...] regular Kr isty Hieu blood pressure, diastolic 80 mm[Hg] Kr isty Deming blood pressure, systolic 130 mm[Hg] Kri sty Deming oxygen saturation, oximetry 97 % Bria Hieu respiratory rate E&M 16 /min Bria Hieu pulse rate 76 /min Bria Deming weight E&M 167 [lb_av] Bria Deming height E&M 61.5 [in_i] Bria Hieu Body Mass Index (Ratio) 31.04 kg/m2 Chiquita Yu BELLHOP Body Mass Index (Ratio) 30.67 kg/m2 Blayne is Erie DO blood pressure, diastolic 80 mm[Hg] Thomas karen O'Raji blood pressure, systolic 136 mm[Hg] Leah cr ORaji oxygen saturation, oximetry 98 % Rachel O'Raji respiratory rate E&M 16 /min Rachel O'Raji pulse rate 79 /min Rachel O'Raji weight E&M 167 [lb_av] Rachel ORaji height E&M 61.5 [in_i] Rachel ORaji blood pressure, cuff size regular Carlos isty Deming blood pressure, diastolic 70 mm[Hg] Kr isty Deming blood pressure, systolic 132 mm[Hg] Kri stlena Deming oxygen saturation, oximetry 97 % Bria Hieu respiratory rate E&M 16 /min Bria Hieu pulse rate 71 /min Bria Hieu weight E&M 165 [lb_av] Bria Hieu height E&M 61.5 [in_i] Bria [place] Body Mass Index (Ratio) 30.41 kg/m2 Blayne is Erie DO blood pressure, cuff size regular Te [...] LinkLogic 3.5-5.2 sodium, serum 143 mmol/L [employer] [phone]/03/ 16 urea nitrogen/creatinine ratio, serum 15 LinkLogic [...] Not Estab. platelet count 265 X10E3/UL [employer] [phone]/03/ 16 red blood cell distribution width 12.2 [...] LinkLogic 3.5-5.2 sodium, serum 143 mmol/L [employer] [phone]/01/ 23 urea nitrogen/creatinine ratio, serum 15 LinkLogic [...] LinkLogic 3.5-5.2 sodium, serum 142 mmol/L [employer]ic [phone]/01/ 10 urea nitrogen/creatinine ratio, serum 16 LinkLogic [...] LinkLogic 3.5-5.2 sodium, serum 142 mmol/L [employer] [phone]/07/ 19 urea nitrogen/creatinine ratio, serum 13 LinkLogic [...] LinkLogic 3.5-5.2 sodium, serum 141 mmol/L [employer] [phone]/06/ 21 urea nitrogen/creatinine ratio, serum 17 LinkLogic [...] Not Estab. platelet count 233 X10E3/UL [employer]ic [phone]/06/ 21 red blood cell distribution width 13.5 [...] revi ewed - no changes required Reynaldo Erie DO smoking status Former smoker Reynaldo Elizabeth ock DO smoking status Former smoker Reynaldo Elizabeth ock DO social history E&M quit in 1974, smoked 1ppd for 11 years Smoking History: P atient is a former smoker. Reynaldo Flannery DO social history reviewed E&M revi ewed - no changes required Reynaldo Erie DO smoking status Former smoker Isaías alfonso [...] (inactive) Management Plan continue current therapy Reynaldo Erie DO HRA, CV Assess/Plan, Angina (inactive) Management Plan continue current therapy Reynaldo Erie DO HRA, CV Assess/Plan, Angina (inactive) Management Plan continue current therapy Reynaldo Erie DO HRA, CV Assess/Plan, Angina (inactive) Management Plan continue current therapy Reynaldo Erie DO HRA, CV Assess/Plan, Angina (inactive) Management [...] Management Plan continue current therapy Samm Gigi BELLHOP HRA, CV Assess/Plan, Angina (inactive) Management Plan continue current therapy Reynaldoyenny Flannery DO HRA, CV Assess/Plan, Angina (inactive) Management Plan continue current therapy Samm Gigi BELLHOP HRA, CV Assess/Plan, Angina (inactive) Management Plan continue current therapy Samm Gigi BELL[facility]OP HRA, CV Assess/Plan, Angina (inactive) Management Plan continue current therapy Reynaldo Flannery DO FAMILY HISTORY Family Member Condition Full Brother Family History of Co ronary Artery Disease: Father Negative FH of Coron dominick Artery Disease Mother Family History of Co ronary Artery Disease: INSURANCE PROVIDERS Payer name Policy type / Coverage type [place] red green party ID [facility] [id number] [place] MEDICARE PART B Medicare [id number] ADVANCE DIRECTIVES Name Date DISCUSSED - NO DECISION MADE TREATMENT PLAN Date Name Performer [id number],C,B P today 130/90. at home her BP has running 130/80 BP 2020: 100/70 P rior BP: 132/80 (01/06/2020) Labs Reviewed: C reat: 0.87 (02/16/2020) C hol: 210 (10/09/2018) HDL: 45 (10/09/2018) Orders: E KG (CPT-29501) 9 9213 LTD 20-29min (CPT-34592) C omplete Echo (CPT-86224) Camron Pedro MD [id number],W,w orse when in A. fib. E F 40% on echo 12/2019 o n entresto and spironolactone Orders: 9 9213 LTD 20-29min (CPT-55284) C omplete Echo (CPT-68511) Her updated medication list for this problem includes: Entresto 24-26 Mg Tablet (Sacubitril-valsartan) ..... 1 tablet by mouth twice a day Camron Pedro MD [id number],W,l ast remote check 07/2020. 100% AFIB. intolerant of amiodarone and sotalol caused hailey/junctional rhythm. interrogation today: 100% AFIB. normal function. normal function 1 00% AF burden p acer dependent discussed option of treatment with dofetilide in detail. at present patient does not want it Camron Pedro MD [id number],C,l ast remote check 07/2020. 100% AFIB. intolerant of amiodarone and sotalol caused hailey/junctional rhythm. interrogation today: 100% AFIB. normal function. normal function 1 00% AF burden p acer dependent discussed option of treatment with dofetilide in detail. at present patient does not want it Camron Pedro MD [id number],C,i nterrogation of device today 100% AFIB. discussed [...] BIV device if LVF declines. Lizbet Delgado BELLHOP [id number],C, p rior stent. follows with Amalia khoury iscussed with Amalia. OK to DC Plavix to begin Eliquis. Lizbet Villagomezantolin LANG [id number],C,p t states that she thinks 'its around 3'. she follows with her PCP and is due to have survellience scan in January Lizbet Villagomezantolin LANG [id number],C,B P today 130/90. at home her BP has running 130/80 BP 2020: 100/70 P rior BP: 132/80 (01/06/2020) Labs Reviewed: C reat: 0.87 (02/16/2020) C hol: 210 (10/09/2018) HDL: 45 (10/09/2018) Lizbet Villagomezantolin LANG [id number],C, due to have labs next month with PCP. Lizbet Villagomezantolin LANG [id number],C, H as severe sinus node dysfunction unable to tolerate antiarrythmic drug. H ad DDD PPM implanted 07/29/[address] Holland. Marlena t prior visit her atrial lead threshold was markedly increased and she was not capturing in the atrium. N ow s/p atrial lead revision 09/14/18 with normal function Lizbet Villagomezantolin LANG [id number],C, E F 40% on echo 12/2019 o n entresto and spironolactone Lizbet Villagomezantolin LANG [id number],C,l ast remote check 07/2020. 100% AFIB. intolerant of amiodarone and sotalol caused hailey/junctional rhythm. interrogation today: 100% AFIB. normal function. pacer dependent normal function 1 00% AF burden p acer dependent Lizbet Delgado BELLHOP Electrophysiology:BP today 130/90. at home her BP has running 130/80 BP 2020: 100/70 P rior BP: 132/80 (01/06/2020) Labs Reviewed: C reat: 0.87 (02/16/2020) C hol: 210 (10/09/2018) HDL: 45 (10/09/2018) Orders: E KG (CPT-17532) 9 9213 LTD 20-29min (CPT-04525) C omplete Echo (CPT-19646) Camron Pedro MD Electrophysiology:wo rse when in A. fib. E F 40% on echo 12/2019 o n entresto and spironolactone Orders: 9 9213 LTD 20-29min (CPT-55001) C omplete Echo (CPT-54831) Her updated medication list for this problem [...] AF burden p acer dependent Lizbet Delgado BELLHOP Electrophysiology:EF 40% on echo 12/2019 o n [...] LVF declines. Reynaldo Sahacock DO Electrophysiology ep psychiatric np fu NEEDS BILLING:stable Lizbet Ryansadie BELLHOP Electrophysiology ep psychiatric np fu NEEDS BILLING:pt has had 5 episodes since march of sudden onset of extreme fatigue, nausea, excessive vomiting (>20 min), diaphoresis, that wipes her of all energy, and is unable eat for a couple of days following. she had an ERCP in 09/2019. and 01/[address] abd and LFTs drawn ([facility]) will need to obtain records interrogation today no episodes, normal function and no changes were made. doubtful this is cardiac in origin. w ill check ECHO, CMP, CBC, BNP. Lizbet Delgado NP Electrophysiology ep psychiatric np fu NEEDS BILLING:paced p aced. s/p PVI [...] 1 mo. Lizbet Delgado NP Electrophysiology ep psychiatric np fu NEEDS BILLING:interrogation today, no events, normal [...] 124/70 P rior BP: 142/84 (05/28/2018) [facility]:Navarrete s severe sinus node dysfunction unable to tolerate antiarrythmic drug. Had DDD PPM inplmanted 07/29/[address] Holland. Her atrial lead threshold humaira markedly increased and she is not capturing in the atriium. The device was reporgrammed with appropriate atrial capture. She will return to see me in one month but may require atrial lead revision. Reynaldo [facility] Electrophysiology:s/ p PVI 01/01/16. A F burden [...] but may require atrial lead revision. 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 0 .3% AF burden. S he would like this removed when she comes in for followup 12/2018. Reynaldo [facility] Electrophysiology:s/ p PVI 01/01/16. A F burden [...] observe. 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 follows with [...] needs sleep study Reynaldo Flannery DO EP:prior GA with stent, good LVF Reynaldo Flannery DO EP:ONLY SINgle episo de documented on Cardionet monitor, and pt unsure if she has ever had prior events. C [id number] =3 s uggest Reveal monitor to quanitate [...] EKG Camron tate MD completed EKG Reynaldo Erie DO completed EKG Reynaldo Erie DO completed EKG Reynaldo Erie DO completed EKG Reynaldo Erie DO completed EKG Reynaldo Erie DO completed ICM Interrogation, Remote (Prof) Reynaldo Erie DO INTERROGATION EVAL REMOTE </30 D CV MNTR SYS completed ICM Interrogation, Remote (Tech) Reynaldo Erie DO INTERROGATION EVAL REMOTE </30 D TECH REVIEW completed ICM Interrogation, Remote (Prof) Reynaldo Erie DO INTERROGATION EVAL REMOTE </30 D CV MNTR SYS completed ICM Interrogation, Remote (Tech) Reynaldo Erie DO INTERROGATION EVAL REMOTE </30 D TECH REVIEW completed EKG Reynaldo Erie DO completed ICM Interrogation, Remote (Prof) Reynaldo Erie DO INTERROGATION EVAL REMOTE </30 D CV MNTR SYS completed ICM Interrogation, Remote (Tech) Reynaldo Erie DO INTERROGATION EVAL REMOTE </30 D TECH REVIEW completed EKG Reynaldo Erie DO completed EKG Reynaldo Erie DO completed Loop Recorder Interrogation, Remote Reynaldo Erie DO INTERROGATION EVALUATION REMOTE </30 D ILR SYS completed ICM Interrogation, Remote (Tech) Reynaldo Erie DO INTERROGATION EVAL REMOTE </30 D TECH REVIEW completed Pacemaker Interrogation, Remote (Tech) Reynaldo Erie DO INTERROGATION REMOTE </90 D HEALTHCARE LIAISON REVIEW completed Pacemaker Interrogation, Remote (Prof) Reynaldo Erie DO INTERROGATION EVAL REMOTE </90 D 1/2/CORPORATE WELLNESS COORDINATOR LEAD P completed Schedule Followup Reynaldo Glascoc k DO in 6 mo completed EKG Reynaldo Erie DO completed Loop Recorder Interrogation, Remote Reynaldo Erie DO INTERROGATION EVALUATION REMOTE </30 D ILR SYS completed ICM Interrogation, Remote (Tech) Reynaldo Erie DO INTERROGATION EVAL REMOTE </30 D TECH REVIEW completed Loop Recorder Interrogation, Remote Reynaldo Erie DO INTERROGATION EVALUATION REMOTE </30 D ILR SYS completed ICM Interrogation, Remote (Tech) Reynaldo Erie DO INTERROGATION EVAL REMOTE </30 D TECH REVIEW completed Loop Recorder Interrogation, Remote Reynaldo Erie DO INTERROGATION EVALUATION REMOTE </30 D ILR SYS completed ICM Interrogation, Remote (Tech) Reynaldo Erie DO INTERROGATION EVAL REMOTE </30 D TECH REVIEW completed Loop Recorder Interrogation, Remote Reynaldo Erie DO INTERROGATION EVALUATION REMOTE </30 D ILR SYS completed ICM Interrogation, Remote (Tech) Reynaldo Erie DO INTERROGATION EVAL REMOTE </30 D TECH REVIEW completed Loop Recorder Interrogation, Remote Reynaldo Erie DO INTERROGATION EVALUATION REMOTE </30 D ILR SYS completed ICM Interrogation, Remote (Tech) Reynaldo Erie DO INTERROGATION EVAL REMOTE </30 D TECH REVIEW completed Schedule Followup Reynaldo Glascoc k DO completed EKG Reynaldo Erie DO completed Loop Recorder Interrogation, Remote Reynaldo Erie DO INTERROGATION EVALUATION REMOTE </30 D ILR SYS completed ICM Interrogation, Remote (Tech) Reynaldo Erie DO INTERROGATION EVAL REMOTE </30 D TECH REVIEW completed Loop Recorder Interrogation, Remote Reynaldo Erie DO INTERROGATION EVALUATION REMOTE </30 D ILR SYS completed ICM Interrogation, Remote (Tech) Reynaldo Erie DO INTERROGATION EVAL REMOTE </30 D TECH REVIEW completed Loop Recorder Interrogation, Remote Reynaldo Erie DO INTERROGATION EVALUATION REMOTE </30 D ILR SYS completed ICM Interrogation, Remote (Tech) Reynaldo Erie DO INTERROGATION EVAL REMOTE </30 D TECH REVIEW completed EKG Reynaldo Erie DO completed Loop Recorder Interrogation, Remote Reynaldo Erie DO INTERROGATION EVALUATION REMOTE </30 D ILR SYS completed ICM Interrogation, Remote (Tech) Reynaldo Erie DO INTERROGATION EVAL REMOTE </30 D TECH REVIEW completed Loop Recorder Interrogation, Remote Reynaldo Erie DO INTERROGATION EVALUATION REMOTE </30 D ILR SYS completed ICM Interrogation, Remote (Tech) Reynaldo Erie DO INTERROGATION EVAL REMOTE </30 D TECH REVIEW completed Loop Recorder Interrogation, Remote Reynaldo Erie DO INTERROGATION EVALUATION REMOTE </30 D ILR SYS completed ICM Interrogation, Remote (Tech) Reynaldo Erie DO INTERROGATION EVAL REMOTE </30 D TECH REVIEW completed Loop Recorder Interrogation, Remote Reynaldo Erie DO INTERROGATION EVALUATION REMOTE </30 D ILR SYS completed ICM Interrogation, Remote (Tech) Reynaldo Erie DO INTERROGATION EVAL REMOTE </30 D TECH REVIEW completed Loop Recorder Interrogation, Remote Reynaldo Erie DO INTERROGATION EVALUATION REMOTE </30 D ILR SYS completed ICM Interrogation, Remote (Tech) Reynaldo Erie DO INTERROGATION EVAL REMOTE </30 D TECH REVIEW completed Loop Recorder Interrogation, Remote Reynaldo Erie DO INTERROGATION EVALUATION REMOTE </30 D ILR SYS completed ICM Interrogation, Remote (Tech) Reynaldo Erie DO INTERROGATION EVAL REMOTE </30 D TECH REVIEW completed Loop Recorder Interrogation, Remote Reynaldo Erie DO INTERROGATION EVALUATION REMOTE </30 D ILR SYS completed ICM Interrogation, Remote (Tech) Reynaldo Erie DO INTERROGATION EVAL REMOTE </30 D TECH REVIEW completed Schedule Followup Reynaldo Glascoc k DO completed EKG Reynaldo Erie DO completed SNOMED-CT: [id number] Current Medications Documented Reynaldo Erie DO completed Loop Recorder Interrogation, Remote Reynaldo Erie DO INTERROGATION EVALUATION REMOTE </30 D ILR SYS completed ICM Interrogation, Remote (Tech) Reynaldo Erie DO INTERROGATION EVAL REMOTE </30 D TECH REVIEW completed Loop Recorder Interrogation, Remote Reynaldo Erie DO INTERROGATION EVALUATION REMOTE </30 D ILR SYS completed ICM Interrogation, Remote (Tech) Reynaldo Erie DO INTERROGATION EVAL REMOTE </30 D TECH REVIEW completed Loop Recorder Interrogation, Remote Reynaldo Erie DO INTERROGATION EVALUATION REMOTE </30 D ILR SYS completed ICM Interrogation, Remote (Tech) Reynaldo Erie DO INTERROGATION EVAL REMOTE </30 D TECH REVIEW completed Schedule Followup Reynaldo Glascoc k DO in two months completed EKG Reynaldo Erie DO completed SNOMED-CT: [id number] Current Medications Documented Reynaldo Erie DO completed Loop Recorder Interrogation, Remote Reynaldo Erie DO INTERROGATION EVALUATION REMOTE </30 D ILR SYS completed ICM Interrogation, Remote (Tech) Reynaldo Erie DO INTERROGATION EVAL REMOTE </30 D TECH REVIEW completed Loop Recorder Interrogation, Remote Reynaldo Erie DO INTERROGATION EVALUATION REMOTE </30 D ILR SYS completed ICM Interrogation, Remote (Tech) Reynaldo Erie DO INTERROGATION EVAL REMOTE </30 D TECH REVIEW completed Loop Recorder Interrogation, Remote Reynaldo Erie DO INTERROGATION EVALUATION REMOTE </30 D ILR SYS completed ICM Interrogation, Remote (Tech) Reynaldo Erie DO INTERROGATION EVAL REMOTE </30 D TECH REVIEW completed Loop Recorder Interrogation, Remote Reynaldo Erie DO INTERROGATION EVALUATION REMOTE </30 D ILR SYS completed ICM Interrogation, Remote (Tech) Reynaldo Erie DO INTERROGATION EVAL REMOTE </30 D TECH REVIEW completed Loop Recorder Interrogation, Remote Reynaldo Erie DO INTERROGATION EVALUATION REMOTE </30 D ILR SYS completed ICM Interrogation, Remote (Tech) Reynaldo Erie DO INTERROGATION EVAL REMOTE </30 D TECH REVIEW completed Loop Recorder Interrogation, Remote Reynaldo Erie DO INTERROGATION EVALUATION REMOTE </30 D ILR SYS completed ICM Interrogation, Remote (Tech) Reynaldo Erie DO INTERROGATION EVAL REMOTE </30 D TECH REVIEW completed EKG Reynaldo Erie DO completed SNOMED-CT: [id number] Current Medications Documented Reynaldo Erie DO completed Loop Recorder Interrogation, Remote Reynaldo Erie DO INTERROGATION EVALUATION REMOTE </30 D ILR SYS completed ICM Interrogation, Remote (Tech) Reynaldo Erie DO INTERROGATION EVAL REMOTE </30 D TECH REVIEW completed Loop Recorder Interrogation, Remote Reynaldo Erie DO INTERROGATION EVALUATION REMOTE </30 D ILR SYS completed ICM Interrogation, Remote (Tech) Reynaldo Erie DO INTERROGATION EVAL REMOTE </30 D TECH REVIEW completed SNOMED-CT: [id number] Current Medications Documented Reynaldo Erie DO completed EKG Reynaldo Erie DO completed Loop Recorder Interrogation, Remote Reynaldo Erie DO INTERROGATION EVALUATION REMOTE </30 D ILR SYS completed ICM Interrogation, Remote (Tech) Reynaldo Erie DO INTERROGATION EVAL REMOTE </30 D TECH REVIEW completed Loop Recorder Interrogation, Remote Reynaldo Erie DO INTERROGATION EVALUATION REMOTE </30 D ILR SYS completed ICM Interrogation, Remote (Tech) Reynaldo Flannery DO INTERROGATION EVAL REMOTE </30 D TECH REVIEW completed SNOMED-CT: [id number] Current Medications Documented Reynaldo Flannery DO completed EKG Reynaldo Flannery DO completed
--- OUTSIDE RECORDS SUMMARY | 2024-08-13 09:50 | XMS_ITS | Referral Summary ---
Author Organization [facility] Address [address] [place] [address] Care Team Providers Care Pinsetter Mechanic Automatic Name Role Phone Reynaldo Flannery DO Unavailable [phone] Guanakito Holland MD Unavailable [phone] Jaleel Mcgovern MD Primary Care Provider [phone] Encounters Date Type Department Care Team Description 08/03/2024 9:30 AM CDT Ancillary Procedure [facility] Cardiology [address] [id number] Cardiac pacemaker in situ [Z95.0] (Primary Dx); Paroxysmal atrial fibrillation (HCC); Sick sinus syndrome (HCC) 07/26/2024 11:30 AM CDT Office Visit [facility] Cardiology at [address] [place] [address] Mannie Hernandez MD 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 Assessment & Plan (03/12/2017 2:39 PM SITECORE DEVELOPER): Patient has Xanax for p.r.n. use. She [...] his passing. She did see someone at [facility] for [facility]. We discussed Senior renewal. She declines at the present time. She would like to continue to monitor her panic attacks and was instructed to use Xanax as previously prescribed on an as needed basis. Coronary artery disease invo lving [place] coronary artery of [place] river heart 12/25/2016 Overview (04/19/2019): Status post PCI in June 2013 (RL). Normal Cardiolite in August 2014. Assessment & Plan (08/29/2022 9:25 PM CDT): Denies any chest pain or anginal equivalent. Recent drop in her LVEF to 20% from 40% with unclear etiology. Continue aspirin, metoprolol and Crestor. Would like to discuss with her local marriage counselor minister about additional ischemic workup as she plans [...] given Assessment & Plan (03/12/2017 2:37 PM SITECORE DEVELOPER): Blood pressure is slightly elevated during office [...] is less than 70. Will discuss local marriage counselor minister about statin therapy and possible PCSK9 inhibitor. [...] 06/24/2017 Assessment & Plan (03/12/2017 2:39 PM SITECORE DEVELOPER): Influenza A negative influenza B negative. Sore throat 03/12/2017 06/24/2017 Assessment & Plan (03/12/2017 2:39 PM SITECORE DEVELOPER): Rapid strep negative. Viral URI with cough 03/12/2017 018 Assessment & Plan (03/12/2017 2:40 PM SITECORE DEVELOPER): Humidification, fluids, and rest were recommended. Patient [...] 11:05 AM CDT): Routinely follows-up with at [facility]. NSR today in office. Cnt. Eliquis for anticoagulation Assessment & Plan (03/12/2017 2:37 PM SITECORE DEVELOPER): Patient will continue routine follow-up with Dr. Pennie pierre and local marriage counselor minister as recommended. She reports compliance with her [...] Recorded Patient Health Questionnaire-2 Score 0 08/23/2022 [facility] of Occupat ional Health - Occupational Stress [...] on file Legal Sex Female 11:18 AM SITECORE DEVELOPER Gender Identity Female 10/09/2022 9:08 AM [...] 07/26/2024 11:24 AM CDT Plan of Treatment Not on file Medical Devices Implanted Type Area Bottle Inspector Device Identifier Shelf Expiration Date Model / Serial / Lot Biotronik Inc [id number] Endocardial Pacing Lead Promri Solia Jt 45 - [id number] - [id number] Implanted:Qty: 1 on 07/29/2018 by Guanakito Holland MD at [facility] Lead Biotronik Inc 12/22/2019 [id number] / [id number] / Biotronik Inc [id number] Endocardial Pacing Lead Promri Solia T 53 - [id number] - [id number] Implanted:Qty: 1 on 07/29/2018 by Guanakito Holland MD at [facility] Lead Biotronik Inc 12/22/2019 [id number] / [id number] / Biotronik Inc [id number] Solia S 45cm Bipolar Active Fixation Lead Pacing Steroid Eluting - [id number] - [id number] Implanted:Qty: 1 on 09/14/2018 by Reynaldo Flannery DO at [facility] Lead Biot[employer]ik Inc [id number] 05/21/2020 [id number] / [id number] / [id number] Biotronik Inc [id number] Edora Promri 09n99k7.5mm 1 Chamber Rate Adaptive Unipolar Bipolar - [id number] - [id number] Implanted:Qty: 1 on 07/29/2018 by Guanakito Holland MD at [facility] Pacemaker Biotronik Inc 11/22/2019 [id number] / [id number] / Medtronic Cardiac Rhythm Mgmt [id number] Tyrx 2.7x2.5in Medium Envelope Absorbable Polyarylate Minocycline - [id number] Implanted:Qty: 1 on 09/14/2018 by Reynaldo Flannery DO at [facility] Medtronic Inc 10/21/2018 [id number] / / [id number] Chinchilla Vascular Perclose 6fr Vascular Closure 84208-72 - [id number] Implanted:Qty: 1 on 08/03/2022 at [facility] Chinchilla Vascular 03/23/2024 1267 3-03 / [id number] Procedures Procedure Name Priority Date/Time Associated Diagnosis Comments SCREENING MAMMOGRAM BILATERAL W OSCAR Schedule Routine, Read Routine (OP Routine) 04/06/2020 1:21 PM SITECORE DEVELOPER Visit for screening mammogram Essential hypertension Mixed hyperlipidemia COLONOSCOPY Routine 05/26/2019 HM DEXA SCAN Routine 11/14/2014 from Last 3 Months or Most Recently Relevant to Health Maintenance Results * Screening Mammogram Bilateral W Oscar (04/06/2020 1:21 PM SITECORE DEVELOPER) Anatomical Region Laterality Modality Breast Bilateral Mammography 04/06/2020 2:09 PM SITECORE DEVELOPER Impressions 04/06/2020 3:13 PM SITECORE DEVELOPER There is no mammographic evidence of malignancy. A 1 year screening mammogram is recommended. BI-RADS: 2 - Benign. The patient will be entered into a reminder system with a target due date of 1 year for her next mammogram. Electronically signed by: Micaela Jang MD Narrative 04/06/2020 3:13 PM SITECORE DEVELOPER EXAMINATION: SCREENING MAMMOGRAM BILATERAL W OSCAR ORDERING [...] Provider MD ENDOSCOPY PROCEDURES Roshni l Result * DEXA SCAN (11/14/2014) DEXA Scan Abnormal Comment:Osteopenia us Historical Provider MD HEALTH MAINTENANCE Final Result from Last 3 Months or Most Recently Relevant to Health Maintenance Insurance MEDICARE [facility] MEDICARE [facility] MEDICARE SUPPLEMENT MEDICARE [facility] MEDICARE SUPPLEMENT MEDICARE [facility] Advance Directives For more information, please contact: [phone] * LIMITED - No CPR (Latest Code [...] 11:36 AM 10/19/2019 7:30 PM Care Teams Pinsetter Mechanic Automatic Relationship Specialty Start Date End Date Jaleel Mcgovern MD PCP - General Family Practice 07/18/22 Reynaldo Flannery DO Consulting Physician Cardiology 09/26/17 Guanakito Holland MD Consulting Physician Cardiovascular Disease 07/29/18
== END 2024-08-13 09:45 | disposition home or self-care (01) ==
PROVIDERS: PCP Family Medicine; Visit Provider Internal Medicine Critical Care Medicine
DX: J90 Pleural effusion, not elsewhere classified (principal)
CPT/HCPCS: 71046

== ENCOUNTER 2024-11-11 11:41 | Outpatient (CLI) | payer MEDICARE, SELFPAY ==
--- NOTE | ~2024-11-11 | XR_ITS ---
XR sacrum coccyx min 2V 11/11/2024 12:11 Indication: Sacrococcygeal disorder Procedure: 3 views sacrum/coccyx Comparison: No prior studies for comparison. Findings: No acute fracture or traumatic malalignment. There is severe lower lumbar spondylosis. There is bilateral symmetric degenerative changes of the sacroiliac joints. No acute fracture or traumatic malalignment. Impression: 1: No acute abnormality of the sacrum/coccyx. 2: Moderate symmetric degenerative changes of the sacroiliac joints. 3: Severe lower lumbar spondylosis. Reviewed, dictated and finalized at location O. Impression: 1: No acute abnormality of the sacrum/coccyx. 2: Moderate symmetric degenerative changes of the sacroiliac joints. 3: Severe lower lumbar spondylosis.
--- NOTE | ~2024-11-11 | XR_ITS ---
XR_ABD3V_CR 11/11/2024 12:11 Indication: Diarrhea Procedure: Supine and upright views of abdomen Comparison: No prior studies for comparison. Findings: Nonobstructive bowel gas pattern. Moderate colonic fecal loading. There are cholecystectomy clips. Lung bases unremarkable. Severe lower thoracic and lumbar spondylosis. Pacemaker leads are in expected position. No abnormal calcifications. Impression: 1: No acute abdominal abnormality. Reviewed, dictated and finalized at location O. Impression: 1: No acute abdominal abnormality.
== END 2024-11-11 11:42 | disposition home or self-care (01) ==
LOC: MICIMG 11:44
PROVIDERS: PCP Family Medicine; Visit Provider Family Medicine
DX: M47.818 Spondylosis without myelopathy or radiculopathy, sacral and sacrococcygeal region (principal); M47.816 Spondylosis without myelopathy or radiculopathy, lumbar region; R19.7 Diarrhea, unspecified
CPT/HCPCS: 72220; 74021

== ENCOUNTER 2024-12-14 10:41 | Inpatient (IN) | payer MEDICARE, SELFPAY ==
[2024-12-14] VITALS (34 sets, daily range): BP systolic 57–141; BP diastolic 34–98; PULSE 79–91; RESP 10–23; TEMP 36.4–36.5; O2SAT 96–100; BMI 26.2
--- NOTE | ~2024-12-14 | XR_ITS ---
XR chest 1V portable 12/14/2024 13:49 Indication: Hypotension Procedure: AP portable chest Comparison: Comparison to multiple prior studies sequentially, with oldest reviewed study dated 05/06/2024. Findings: Cardiomegaly. Pacemaker leads in expected position. Small left pleural effusion. Mild interstitial edema. No pneumothorax. Impression: 1: Cardiomegaly with mild interstitial edema. 2: Small left pleural effusion. Reviewed, dictated and finalized at location O. Impression: 1: Cardiomegaly with mild interstitial edema. 2: Small left pleural effusion.
--- NOTE | ~2024-12-14 | CT_ITS ---
Exam: CT abdomen and pelvis with contrast Clinical History: [Abdominal pain. Low blood pressure. ] Comparison: 02/27/2024 Technique: Multiple axial CT images of the abdomen and pelvis were obtained with IV contrast. Sagittal and coronal reformatted images were obtained. FINDINGS: Lung bases: [Small left-sided pleural effusion. ] Small opacities in the lower lungs. 4 mm pulmonary nodule in the right lower lobe. Consider a chest CT. Liver: [ No mass.] [ No intrahepatic biliary duct dilatation.] Fatty liver. Gallbladder: Surgically absent. Common bile duct: [ Normal caliber.] [ No stones.] Spleen: [ Within normal limits.] Pancreas: [ No mass. No pancreatic fluid collection.] Adrenals: [ No masses.] Kidneys: [ No hydronephrosis.][ There is a 1.8 cm indeterminate left renal lesion. A renal mass CT is recommended.] Lymph nodes: [ No adenopathy in the abdomen or pelvis.] Stomach, small bowel and colon: [ No bowel wall thickening or obstruction.] Sigmoid diverticulosis. Thickening of the nevarez of the large bowel. Differential includes incomplete bowel wall distention versus colitis. Peritoneum cavity: Small amount of fat stranding and fluid in the abdomen and pelvis. Bladder: [ Unremarkable.] Osseous structures: [ No acute fracture lesion.] [ Multilevel degenerative change in the visualized spine.] Bones appear osteopenic. Abdominal aorta: [ No aneurysm.] Moderate atherosclerotic disease about the abdominal aorta. Additional findings: [ None of significance.] IMPRESSION: 1. Thickening of the nevarez of the large bowel. Differential includes incomplete bowel wall distention versus colitis. 2. Small amount of nonspecific fat stranding and fluid in the abdomen and pelvis. 3. There is a 1.8 cm indeterminate left renal lesion. A renal mass CT is recommended.] 4. Small left-sided pleural effusion. 5. There is a 4 mm pulmonary nodule in the right lower lobe. Consider a chest CT. Reviewed, dictated and finalized at location Q. IMPRESSION: 1. Thickening of the nevarez of the large bowel. Differential includes incomplete bowel wall distention versus colitis. 2. Small amount of nonspecific fat stranding and fluid in the abdomen and pelvi s. 3. There is a 1.8 cm indeterminate left renal lesion. A renal mass CT is recomm ended.] 4. Small left-sided pleural effusion. 5. There is a 4 mm pulmonary nodule in the right lower lobe. Consider a chest C T.
--- OUTSIDE RECORDS SUMMARY | 2024-12-14 11:25 | XMS_ITS | Encounter Summary ---
Author Organization [facility] Healthcare Address [address] [place] [address] Care Team Providers Care Doctor Naturopathic Name Role Phone Reynaldo Flannery DO Unavailable [phone] Guanakito Holland MD Unavailable [phone] Jaleel Mcgovern MD Primary Care Provider [phone] Encounter Details Date Type Department Care Team (Late st Contact Info) Description 06/21/2024 Orders Only [facility] Health Information Management [address] [place] [address] Scanning, Provider Social History Tobacco Use [...] Never 10/24/2022 Social Connection and Isolation Panel Answer Date Recorded In a typical week, how [...] 0 08/23/2022 [facility] Occupat ional Health - [...] on file Legal Sex Female 11:18 AM UI ARCHITECT Gender Identity Female 10/09/2022 9:08 AM CDT Sexual Orientation Choose not to disclose 2022 9:08 AM CDT documented as of this encounter Plan of Treatment Not on file documented as of this encounter Procedures Procedure Name Priority Date/Time Associated Diagnosis Comments SCAN - RADIOLOGY/IMAGING 06/21/2024 documented in this encounter Results * SCAN - RADIOLOGY/IMAGING (06/21/2024) Anatomical Region Laterality Modality Other us Provider Scanning Final Result documented in this encounter Visit Diagnoses Not on filedocumented in this encounter Care Teams Doctor Naturopathic Relationship Specialty Start Date End Date Jaleel Mcgovern MD PCP - General Family Practice 07/18/22 Reynaldo Flannery DO Consulting Physician Cardiology 09/26/17 Guanakito Holland MD Consulting Physician Cardiovascular Disease 07/29/18 documented as of this encounter
--- OUTSIDE RECORDS SUMMARY | 2024-12-14 11:25 | XMS_ITS | Clinical Summary ---
Author Organization [facility] Address [address] [place] [address] Care Team Providers Care Bolter Helper Name Role Phone Reynaldo Flannery DO Unavailable [phone] Guanakito Holland MD Unavailable [phone] Jaleel Mcgovern MD Primary Care Provider [phone] Allergies Active Allergy Reactions Criticality Noted Date [...] is to continue close follow-up with local open hearth door liner and therefore would like to discuss with [...] needed. Assessment & Plan (03/12/2017 2:39 PM MACHINE CLOTHING MAN): Patient has Xanax for p.r.n. use. She [...] his passing. She did see someone at [facility] for awhile. We discussed Senior renewal. She declines at the present time. She would like to continue to monitor her panic attacks and was instructed to use Xanax as previously prescribed on an as needed basis. Coronary artery disease invo lving [place] coronary artery of [place]bud heart 12/25/2016 Overview (04/19/2019): Status post PCI in June 2013 (RL). Normal Cardiolite in August 2014. Assessment & Plan (08/29/2022 9:25 PM CDT): Denies any chest pain or anginal equivalent. Recent drop in her LVEF to 20% from 40% with unclear etiology. Continue aspirin, metoprolol and Crestor. Would like to discuss with her local open hearth door liner about additional ischemic workup as she plans [...] given Assessment & Plan (03/12/2017 2:37 PM MACHINE CLOTHING MAN): Blood pressure is slightly elevated during office [...] is less than 70. Will discuss local open hearth door liner about statin therapy and possible PCSK9 inhibitor. [...] 06/24/2017 Assessment & Plan (03/12/2017 2:39 PM MACHINE CLOTHING MAN): Influenza A negative influenza B negative. Sore throat 03/12/2017 06/24/2017 Assessment & Plan (03/12/2017 2:39 PM MACHINE CLOTHING MAN): Rapid strep negative. Viral URI with cough 03/12/2017 018 Assessment & Plan (03/12/2017 2:40 PM MACHINE CLOTHING MAN): Humidification, fluids, and rest were recommended. Patient [...] 11:05 AM CDT): Routinely follows-up with at [facility]. NSR today in office. Cnt. Eliquis for anticoagulation Assessment & Plan (03/12/2017 2:37 PM MACHINE CLOTHING MAN): Patient will continue routine follow-up with Dr. Pennie pierre and local open hearth door liner as recommended. She reports compliance with her [...] Encounters Date Type Department Care Team Description 11/24/2024 11:00 AM CDT Ancillary Procedure [facility] Cardiology [address] [place] [phone] Paroxysmal atrial fibrillation (HCC); Sick sinus syndrome (HCC); Cardiac pacemaker in situ 11/23/2024 Orders Only [facility] Cardiology [address] [place] [address] [place] [phone] Mannie Hernandez MD Permanent atrial fibrillation (HCC) (Primary Dx); Cardiac pacemaker in situ; Sick sinus syndrome (HCC) 11/02/2024 10:30 AM CDT Ancillary Procedure [facility] Cardiology [address] [place] [address] [place] [phone] Cardiac pacemaker in situ [Z95.0] (Primary Dx); Paroxysmal atrial fibrillation (HCC); Sick sinus syndrome (HCC); HFrEF (heart failure with reduced ejection fraction) from Last 3 Months Immunizations Immunization Administration [...] o f : Angina Diabetes Sister 1 [place] Heart attack Sister 1 [place] Heart disease Sister 1 [place] Other Sister 3 DM, CAD; Other Sister 4 Valve Replaceme nt; Relation Name Status Comments Brother 1 68 Brother 2 79 Child Daughter Chelle Jaar Father Derek (Age 79) Maternal Grandmother Grandma Mother (Age 93) Sister 1 [place] Alive Sister 2 Alive Sister 3 Sister [...] or relatives? Once a week 08/12/2022 Attends [employer] Not on file 08/12 Active Member [...] file Legal Sex Female 11:18 AM MACHINE CLOTHING MAN Gender Identity Female 10/09/2022 9:08 AM [...] 11:24 AM CDT Height 154.9 cm (5' 1) 07/26/2024 11:24 AM CDT Body Mass Index [...] Screening-Colonoscopy 05/25/2024 05/26/2019, 05/25/2019, 01/06/2017 Influenza Vaccine (#1) 2024 Colon Cancer Screening-CT Colonography Discontinued 05/26/2019, 05/25/2019, 01/06/2017 Colon Cancer Screening-DNA Stool Discontinued 05/26/2019, 05/25/2019, 01/16/2017, Additional history exists Colon Cancer Screening-FIT Discontinued 05/25, 05/25/2019, 01/16/2017, Additional history exists Colon Cancer Screening-Sigmoidoscopy Discontinued 05/26/2019, 05/25/2019, 01/06/2017 Medical Devices Implanted Type Area Draw End Hand Device Identifier Shelf Expiration Date Model / Serial / Lot Biotronik Inc [id number] Endocardial Pacing Lead Promri Solia Jt 45 - [id number] - [id number] Implanted:Qty: 1 on 07/29/2018 by Guanakito Holland MD at [facility] Lead [employer]ik Inc 12/22/2019 [id number] / [id number] / Biotronik Inc [id number] Endocardial Pacing Lead Promri Solia T 53 - [id number] - [id number] Implanted:Qty: 1 on 07/29/2018 by Guanakito Holland MD at [facility] Lead [employer] Inc 12/22/2019 [id number] / [id number] / Biotronik Inc [id number] Solia S 45cm Bipolar Active Fixation Lead Pacing Steroid Eluting - [id number] - [id number] Implanted:Qty: 1 on 09/14/2018 by Reynaldo Flannery DO at [facility] Lead [employer] Inc [id number] 05/21/2020 [id number] / [id number] / [id number] Biotronik Inc [id number] Edora Promri 52h37h2.5mm 1 Chamber Rate Adaptive Unipolar Bipolar - [id number] - [id number] Implanted:Qty: 1 on 07/29/2018 by Guanakito Holland MD at [facility] Pacemaker [employer]ot[employer]ik Inc 11/22/2019 [id number] / [id number] / Medtronic Cardiac Rhythm Mgmt [id number] Tyrx 2.7x2.5in Medium Envelope Absorbable Polyarylate Minocycline - [id number] Implanted:Qty: 1 on 09/14/2018 by Reynaldo Flannery DO at [facility] Medtronic Inc 10/21/2018 [id number] / / [id number] Chinchilla Vascular Perclose 6fr Vascular Closure 22721-65 - [id number] Implanted:Qty: 1 on 08/03/2022 at [facility] Ch[employer] 03/23/2024 1267 3-03 / / [id number] Procedures Procedure Name Priority Date/Time Associated Diagnosis Comments DEVICE CHECK - IN OFFICE Routine 11/24/2024 10:59 AM CDT Paroxysmal atrial fibrillation (HCC) Sick sinus syndrome (HCC) Cardiac pacemaker in situ DEVICE CHECK - REMOTE Routine 11/03/2024 8:01 AM CDT Paroxysmal atrial fibrillation (HCC) Sick sinus syndrome (HCC) HFrEF (heart failure with reduced ejection fraction) SCREENING MAMMOGRAM BILATERAL W OSCAR Schedule Routine, Read Routine (OP Routine) 04/06/2020 1:21 PM MACHINE CLOTHING MAN Visit for screening mammogram Essential hypertension Mixed hyperlipidemia COLONOSCOPY Routine 05/26/2019 DEXA SCAN Routine 11/14/2014 from Last 3 Months or Most Recently Relevant to Health Maintenance Results * DEVICE CHECK - IN OFFICE (11/24/2024 10:59 AM CDT) Anatomical Region Laterality Modality Other Narrative 11/26/2024 12:42 PM CDT Biotronik Dual Pacemaker. Dx; SSS, Afib. DOI 07/29/2018-Dr Holland. RA Lead replaced 09/14/18. AV Node Ablation 12/2018. Biotronik remote monitoring. Supervising MD: Dr Hernandez. Office VVI Pacemaker evaluation demonstrated appropriate device function. Transmission attached. Stable lead impedances, pacing and sensing thresholds. Battery voltage- Ok, 3.0 years 7 months remaining to LEANA. HVAC REFRIGERATION TECHNICIAN-93 %. Presenting rhythm- Vpaced. Underlying rhythm-Vpaced with 2 escape beats noted. Consider pacemaker dependent. No Ventricular arrhythmias detected. Medication: Eliquis, ASA 81 mg, Entresto. No programming changes made to device settings. See scanned report. BioTronik remote f/u 03/01/2025. Office device f/u 01/18/2026. Merry Cavanaugh, RN Mannie Hernandez MD CV CARDIAC SERVICES PROC EDURES Final Result * DEVICE CHECK - REMOTE (11/03/2024 8:01 AM CDT) Anatomical Region Laterality Modality Other Narrative 11/26/2024 12:40 PM CDT Biotronik Dual Pacemaker. Dx; SSS, Afib. DOI 07/29/2018-Dr Holland. RA Lead replaced 09/14/18. AV Node Ablation 12/2018. Biotronik remote monitoring. Routine VVI Pacemaker Remote. Transmission attached. Battery status-Ok, 45% remaining to LEANA. Stable lead impedances, pacing and sensing thresholds. Presenting rhythm: Vpaced. HVAC REFRIGERATION TECHNICIAN-93 %. No Ventricular arrhythmias detected. Medication: Eliquis, Entresto. Office pacemaker f/u in 3-6 months. Biotronik remote f/u 02/01/2025. Merry Cavanaugh, BRAYAN Result [facility] Mannie Hernandez MD CV CARDIAC SERVICES PROC EDURES Final Result * Screening Mammogram Bilateral W Oscar (04/06/2020 1:21 PM MACHINE CLOTHING MAN) Anatomical Region Laterality Modality Breast Bilateral Mammography 04/06/2020 2:09 PM MACHINE CLOTHING MAN Impressions 04/06/2020 3:13 PM MACHINE CLOTHING MAN There is no mammographic evidence of malignancy. A 1 year screening mammogram is recommended. BI-RADS: 2 - Benign. The patient will be entered into a reminder system with a target due date of 1 year for her next mammogram. Electronically signed by: Micaela Jang MD Narrative 04/06/2020 3:13 PM MACHINE CLOTHING MAN EXAMINATION: SCREENING MAMMOGRAM BILATERAL W OSCAR ORDERING [...] has been no suspicious interval change. Result [facility] Ryan Castrejon MD IMG MAMMO PROCEDURES Final Res ult * Colonoscopy (05/26/2019) Anatomical Region Laterality Modality Other Historical Provider ENDOSCOPY PROCEDURES Roshni l Result * DEXA SCAN (11/14/2014) DEXA Scan Abnormal Comment:Osteopenia Historical Provider HEALTH MAINTENANCE Final Result from Last 3 Months or Most Recently Relevant to Health Maintenance Insurance MEDICARE [facility] MEDICARE [facility] MEDICARE SUPPLEMENT MEDICARE [facility] MEDICARE SUPPLEMENT MEDICARE [employer] [place] Advance Directives For more information, please contact: [phone] * LIMITED - No CPR (Latest Code [...] 11:36 AM 10/19/2019 7:30 PM Care Teams Bolter Helper Relationship Specialty Start Date End Date Jaleel Mcgovern MD PCP - General Family Practice 07/18/22 Reynaldo Flannery DO Consulting Physician Cardiology 09/26/17 Guanakito Holland MD Consulting Physician Cardiovascular Disease 07/29/18
--- OUTSIDE RECORDS SUMMARY | 2024-12-14 11:25 | XMS_ITS | Patient Health Record ---
Author Organization [facility] Address [address] [place] [address] Care Team Providers Care Speedometer Mechanic Name Role Phone VIMAL RAY Unavailable [phone] Reason For Referral No Information Plan Of Treatment No Information Insurance Providers Payer Name Payer Address Payer Phone Subscriber Number Group Number Insured Name Patient Relationship to Insured Coverage Start Date Coverage End Date MEDICARE [place] [address] [address] [place], [place] [id number] Mack Abena Self - patient is the insured 6 MEDICARE [place] [address] [place], [place] [id number] Mack Abena Self - patient is the insured [address] [place] [address] [address] [place] [address] [id number] Mack Abena Self - patient is the insured 6
--- OUTSIDE RECORDS SUMMARY | 2024-12-14 11:25 | XMS_ITS | Encounter Summary ---
Author Organization [facility] Healthcare Address [address] [place] [address] Care Team Providers Care Enterprise Resource Planner Name Role Phone Reynaldo Flannery DO Unavailable [phone] Guanakito Holland MD Unavailable [phone] Jaleel Mcgovern MD Primary Care Provider [phone] Encounter Details Date Type Department Care Team (Late st Contact Info) Description 05/21/2024 Orders Only [facility] [place] [place] Health Information Management [address] [place] [address] Scanning, Provider Social History Tobacco Use [...] or relatives? Once a week 08/12/2022 Attends [employer] Not on file 08/12 Active [...] Recorded Patient Health Questionnaire-2 Score 0 08/23/2022 [facility] of Occupat ional Health - Occupational [...] on file Legal Sex Female 11:18 AM ACCOUNTANCY PROFESSOR Gender Identity Female 10/09/2022 9:08 AM CDT Sexual Orientation Choose not to disclose 2022 9:08 AM CDT documented as of this encounter Plan of Treatment Not on file documented as of this encounter Procedures Procedure Name Priority Date/Time Associated Diagnosis Comments SCAN - RADIOLOGY/IMAGING 05/21/2024 documented in this encounter Results * SCAN - RADIOLOGY/IMAGING (05/21/2024) Anatomical Region Laterality Modality Other us Provider Scanning Final Result documented in this encounter Visit Diagnoses Not on filedocumented in this encounter Care Teams Enterprise Resource Planner Relationship Specialty Start Date End Date Jaleel Mcgovern MD PCP - General Family Practice 07/18/22 Reynaldo Flannery DO Consulting Physician Cardiology 09/26/17 Guanakito Holland MD Consulting Physician Cardiovascular Disease 07/29/18 documented as of this encounter
--- OUTSIDE RECORDS SUMMARY | 2024-12-14 11:25 | XMS_ITS | Encounter Summary ---
Author Organization [facility] Healthcare Address [address] [place] [address] Care Team Providers Care Composite Technician Name Role Phone Reynaldo Flannery DO Unavailable [phone] Guanakito Holland MD Unavailable [phone] Jaleel Mcgovern MD Primary Care Provider [phone] Encounter Details Date Type Department Care Team (Late st Contact Info) Description 08/12/2022 Telephone [facility] Physical Medicine and Rehabilitation [address] [place] [address] Kimberly Gibbons, PATIENT SCHEDULER Social History Tobacco Use Types Packs/Day Years Used Date Smoking Tobacco: Former Cigarettes Q uit: 1975 Smokeless Tobacco: Never Alcohol Use Standard Drinks/Week Comments No 0 (1 standard drink = 0.6 oz pur e alcohol) Social Connection and Isolation Panel Answer Date [...] Date Recorded PHQ-2 Total Score 0 08/12/2022 [facility] [...] on file 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 Answer Date of Assessment Author Not difficult at all 08/12/2022 2:22 PM Yissel Joyner MSW * Over the past 2 weeks, how often have you been bothered by any of the following problems? Question Answer Date of Assessment Author Little interest or pleasure in doing things Not at all 08/12/2022 2:22 PM BENJAT Yissel Ayers , HINGING MACHINE OPERATOR Feeling down, depressed, or hopeless Not at all 08/12/2022 2:22 PM CDT Yissel Ayers , HINGING MACHINE OPERATOR Trouble falling or staying asleep, or sleeping too much Several days 08/12/2022 2:22 PM CDT Miles Ayers, HINGING MACHINE OPERATOR Feeling tired or having little energy Several days 08/12/2022 2:22 PM CDT Yissel Ayers , HINGING MACHINE OPERATOR Poor appetite or overeating Not at all 08/12/2022 2: 22 PM BENJAT Yissel Ayers, HINGING MACHINE OPERATOR Feeling bad about yourself - or that you are a failure or have let yourself or your family down Not at all 08/12/2022 2:22 PM CDT Yissel Ayers , HINGING MACHINE OPERATOR Trouble concentrating on things, such as reading the newspaper or watching television Not at all 08/12/2022 2:22 PM CDT Yissel Ayers , HINGING MACHINE OPERATOR Moving or speaking so slowly that other people could have noticed? Or the opposite - being so fidgety or restless that you have been moving around a lot more than usual. Not at all 08/12/2022 2:22 PM CDT Yissel Ayers , HINGING MACHINE OPERATOR Thoughts that you would be better off or hurting yourself in some way Not at all 08/12/2022 2:22 PM Yissel Doshi, HINGING MACHINE OPERATOR Patient Health Questionnaire-9 Score 2 08/12/2022 2:22 PM CDT Yissel Ayers, HINGING MACHINE OPERATOR documented as of this encounter Miscellaneous Notes * Pre-Admission Screening - Kimberly Gibbons SLP - 08/12/2022 9:44 AM CDT [facility] Physical Medicine and Rehabilitation Preadmission Screening [...] level of care. Patient is currently at [facility] . The patient is being referred [...] Payor Source: Primary: Medicare A&B Secondary:Policy number: [id number] Case discussed with Dr. Nena Oneal on [...] Use: Not on file Patient's Preferred Language: Zambian Cultural Requests During Hospitalization: none conveyed Acute [...] DAPT who presents after receiving TNK at [facility] as a thrombectomy page. Per the patient's family at bedside, the patient was having lunch with one of her daughters when her daughter noticed that she started leaning towards the right. She subsequently became mute and developed a left gaze preference. Her last known normal was 1305. She wastaken to [facility], there her NIHSS was reportedly a [address] physician[address] Dr. Gomez evaluated the patient by telestroke and recommended a CTH + CTA head and neck. She had a hyperdense left MCA sign on CTH and a left M1 occlusion on CTA. She was a GO for TNK and received the drug at 1423.She was then transferred to [facility] for thrombectomy evaluation. On arrival her NIHSS [...] DAPT who presents after receiving TNK at [facility] as a thrombectomy page. The patient is GO for MT, she will need repeat labs to ensure that the values are real. If they arethen she will need a workup for metabolic acidosis. Moreover, she has pulmonary edema on CT CAP that needs follow up. Dis[facility]: Neuro Critical Care Admission H&P CC: Acute right sided weakness HPI: Ms Giron is a 82y/o female with PMH of CAD, NV, SSS s/p Biotronik pacemaker, Atrial fibrillation (previously [...] BP of 68/31. She was taken to [facility] for further evaluation as a Code [...] of TNK at 14:28 and transferred to [facility] ED for mechanical thrombectomy evaluation. Upon arrival to [facility] ED her vital signs were: HR 82, [...] RA lead revision on 09/14/18 done at [facility]), non-morbid obesity (BMI 30), GENNY non compliant with CPAP, PAD and carotid artery stenosis who presented to [facility] on 08/03/22 with R si ded hemiparesis, [...] their arrival. She was initially taken to [facility] to evaluation for stroke. Her BP's improved to 109/89 with [address] Head showed a large hyperdense MCA without hemorrhage, then subsequent CTA Head/Neck showed complete occlusion of theM1 segment of the L MCA. There were also carotid stenoses in the proximal LICA (80%) and proximal SKYLAR (50%). Ms Giron was then transferred to [facility] for tPA and thrombectomy. Ms Giron had an NV in 2013 requiring JOI to mid LCx performed at [facility]. Subsequently shedeveloped atrial fibrillation and [...] (Dr. Hernandez on 07/18/22): LD Entresto BID, [place] 25, and Lasix 20 daily. - recommend [...] woman with past medical history of CAD, NV, SSS s/p Biotronikpacemaker, Atrial fibrillation (previously on [...] Work-up: - Monitor on telemetry Consults: SMART (Manager Play, PT/OT, PATIENT SCHEDULER, Spiritual Care) #Hyperlipidemia LDL on admission was 68. Goal LDL for secondary stroke prevention is <70. She has previously refused anti-lipid medication reporting feeling unwell on medicaiton and with muscle pain without weakness. # CAD s/p NV with stent placement (2013) # HFrEF (LVEF 20%, was LVEF 40% in 2019) She follows with Dr. Hernandez [facility] Cardiology - last seen 07/18/22 in [...] BID and taking intermittently, however her pharmacy ([facility]) indicates she does not fill this medication [...] in the field was 68/31, 90/45 at [place]. Initially responded to fluid boluses. Noted to [...] a 82y/o female with PMH of CAD, NV, SSS s/p Biotronik pacemaker, Atrial fibrillation (previously [...] BP of 68/31. She was taken to [facility] for further evaluation as a Code [...] of TNK at 14:28 and transferred to [facility] ED for mechanical thrombectomy evaluation. Upon arrival to [facility] ED her vital signs were: HR 82, [...] woman with past medical history of CAD, NV, SSS s/p Biotronikpacemaker, Atrial fibrillation (previously on [...] differential for consideration per TOAST criteria include: [id number] embolism or cardioembolism. Cardioembolism is most likely [...] mg PO qHS (SPARCL trial). The current [place] Stroke [employer] guidelines recommend long-term treatment with [...] muscle pain without weakness. # CAD s/p NV with stent placement (2013) # HFrEF (LVEF 20%, was LVEF 40% in 2019) She follows with Dr. Hernandez [facility] Cardiology - last seen 07/18/22 in [...] 60% battery life remaining, demonstrated 100% Afib burden. Currently rate controlled without medications and V-paced. Per prior family reports, was prescribed Eliquis 5 mg BID and taking intermittently, however her pharmacy ([facility]) indicates she does not fillthis medication and [...] for bed mobility, and ambulates 60ft WW Naricsa Due to ongoing medical issues and a significant decline in functional independence, patient is now referred for acute inpatient rehab program. Date of Onset: Date of Onset: 08/03/22 Date Admitted to Acute: Date admitted to acute: 08/03/22 Precautions/Restrictions: Aspiration, Falls Tarkio Suicide Severity Rating Scale: Allergies: Allergies Allergen [...] Current Systems Summary: Height: 154.9 cm (5' 1) Weight: 71.2 kg (157 lb) Diet: Dyaphagia [...] bed mobility SBA (08/12/2022 9:31 AM) Cognition/Communication/Swallowing: PATIENT SCHEDULER Communication: expressive aphasia (08/12/2022 9:31 AM) PATIENT SCHEDULER Swallowing: Mild Dysphagia - pureed/thin (08/12/2022 9:31 AM) Conditions requiring acute rehab and risk for complications: Gait dysfunction - risk for falls and further injury, fracture Uncontrolled Hypertension - risk for stroke, stroke extension, NV Decreased mobility - Risk for Fall, skin [...] by a provider, Intense PT/OT/SP, Access to Technology Professional physicians, Supervised feeding groups, Frequent Neuroassessment, Bowel [...] the intensive Inpatient rehabilitation program offered at [facility] . documented in this encounter Plan of Treatment Not on file documented as of this encounter Visit Diagnoses Not on filedocumented in this encounter Care Teams Composite Technician Relationship Specialty Start Date End Date Jaleel Mcgovern MD PCP - General Family Practice 07/18/22 Reynaldo Flannery DO Consulting Physician Cardiology 09/26/17 Guanakito Holland MD Consulting Physician Cardiovascular Disease 07/29/18 documented as of this encounter
[2024-12-14 11:37] LABS: Hematocrit 46.3 % (37.0-47.0); Hemoglobin 14.7 g/dL (12.0-15.0); Immature Granulocyte Percent A 0.2 % (0-0.5); Lymphocytes Absolute Auto 1.41 K/mm3 (0.9-3.2); Mean Corpuscular HGB Conc 31.7 g/dl (32-36); Mean Corpuscular Hemoglobin 32.4 pg (26-34); Mean Corpuscular Volume 102.0 fl (80-100); Nucleated Red Blood Cells Absolute Auto 0.000 K/mm3 (0.0-0.012); Nucleated Red Blood Cells Perc 0.0 % (0.0-0.2); Platelet Count Result 206 k/mm3 (150-375); Red Blood Count 4.54 M/mm3 (4.2-5.4); White Blood Count 9.5 K/mm3 (4.5-10.0)
--- NOTE | 2024-12-14 11:37 | ED_ITS ---
HPI - General Adult General Chief complaint: Abdominal Pain <Jennifer Smyth July, BACK END ARCHITECT - Last Filed: 12/15/24 19:30> Stated complaint: abd pain <Jennifer Smyth July, BACK END ARCHITECT - Last Filed: 12/15/24 19:30> Time Seen by Provider: 12/14/24 11:01 <Jennifer Smyth July, BACK END ARCHITECT - Last Filed: 12/15/24 19:30> History of Present Illness HPI narrative: Abena Giron is an 84-year-old female who presents with complaints of having abdominal pain on off for a couple weeks. She states that she alternates having constipation to diarrhea over the past several months. She denies having any vomiting but states she feels nauseous whenever she does have the pain. Her last bowel movement was last night states that she was up all night having small bowel movements pain is to the mid abdomen but feeling better at this time rating it a 4/10. Denies Urine symptoms. No fever chills. <Jennifer Smyth July, BACK END ARCHITECT - Last Filed: 12/15/24 19:30> Related Data Home medications: Home Medications ?Medication ?Instructions ?Recorded ?Confirmed ?Last Taken ?Type dapagliflozin propanediol 10 mg 10 mg PO DAILY 4 12/14/24 12/14/24 History tablet (Farxiga) acetaminophen 500 mg tablet 1,000 mg PO Q6H PRN pain 0 06/07/24 12/14/24 06/21/24 History (Acetaminophen Extra Strength) sacubitril 24 mg-valsartan 26 mg 1 tablet PO BID 06/2812/14/24 12/14/24 History tablet (Entresto) <Jennifer Smyth July, BACK END ARCHITECT - Last Filed: 12/15/24 19:30> Allergies/adverse reactions: Allergies Allergy/AdvReac Type Severity Reaction Status Date / Time codeine Allergy Intermediate rash and Verified 12/14/24 10:48 hives morphine Allergy Intermediate rash and Verified 12/14/24 10:48 hallucination Penicillins Allergy Intermediate rash and Verified 12/14/24 10:48 hives prednisone Allergy Unknown Unknown Verified 12/14/24 10:48 amiodarone AdvReac Intermediate Abdominal Verified 12/14/24 10:48 Pain Ofpkeyn-ZQS-OzY Reductase AdvReac Intermediate pain Verified 12/14/24 10:48 Inhibitor b/p meds Allergy Unknown Other Uncoded 06/07/24 14:35 <Jennifer Crain APRN - Last Filed: 12/15/24 19:30> Review of Systems 2 Review of Systems: All systems reviewed & are unremarkable except as noted in HPI and below <Jennifer Crain BACK END ARCHITECT - Last Filed: 12/15/24 19:30> [facility] Past Medical History Medical History: Medical History Peripheral vascular disease Hyperlipidemia Cerebrovascular accident (07/2022) status post TNK mechanical thrombectomy residual right-sided weakness Chronic anticoagulation Atrial fibrillation h/o Coronary artery disease Heart failure with reduced ejection fraction Aortic aneurysm Hypertension Anxiety <Jennifer Crain APRN - Last Filed: 12/15/24 19:30> Surgical History Surgical History: Surgical History History of permanent cardiac pacemaker placement History of coronary artery stent placement History of ERCP History of cholecystectomy <Jennifer Crain BACK END ARCHITECT - Last Filed: 12/15/24 19:30> Family History Family History: Family History Sibling Cancer Diabetes mellitus Heart disease <Jennifer Crain APRN - Last Filed: 12/15/24 19:30> Social History Social History: Social History Social History: Surrogate medical decision maker: ?All of her children? Code status: Do not resuscitate. Smoking status: Never smoker Additional smoking assessment comments: quit in 1974 Alcohol intake: never Substance use: never Substance use type: does not use Do You Feel Safe in your Home?: Yes Lack of Transportation: No Lack of Food: Never True Current Housing: I Have Housing Concerned About Future Housing: No Difficulty Paying Gas/Electric Bills: No Difficulty Paying for Meds: No Currently Unemployed: No Education: High School Diploma/GED Difficulty w/ Childcare or Family Care: No Living arrangements: alone Additional living arrangements comments: She lives alone. She has 4 daughters and 2 sons. Occupation/Education: retired Additional occupation/education comments: Retired, previously worked for [employer]. Spiritual care concerns: No Agree to blood products: Yes <Jennifer Crain, BACK END ARCHITECT - Last Filed: 12/15/24 19:30> Exam 2 Narrative: GENERAL: Well-appearing, well-nourished, and in no acute distress. HEAD: Normocephalic, atraumatic. EYES: PERRLA and EOMI. ENT: Nares clear, no rhinorrhea or epistaxis. Mucous membranes moist. Oropharynx without tonsillar hypertrophy exudate or other lesions. NECK: Supple. No adenopathy or masses. No carotid bruits or JVD CHEST: Clear to auscultation. No respiratory distress. No wheezes rales or rhonchi HEART: Regular rate and rhythm. No murmur heard. Normal peripheral pulses. ABDOMEN: Soft, nondistended, normal active bowel sounds, tender to mid umbilical region with palpation EXTREMITIES: Normal range of motion. No edema. SKIN: Warm, dry, no rash. NEURO: No focal deficits. Alert and oriented x3. PSYCH: Normal mood and affect. <Jennifer Crain, BACK END ARCHITECT - Last Filed: 12/15/24 19:30> Course Course Emergency Course: ZYCH: 84-year-old woman presenting with abdominal pain diarrhea and low blood pressures. Patient was normotensive on arrival but then dipped down into the 70 over 50s. Received 1 L of fluid with temporary return to a normal blood pressure although she is again hypotensive. Will receive the rest of the 30 cc/kilogram bolus. Infectious workup including chest x-ray, lactic and viral swabs have been added. Chest x-ray showed cardiomegaly with mild interstitial edema. Patient has not developed any respiratory distress or oxygen requirements in the emergency department despite fluid resuscitation. Lactic acid was 1.9. Viral swabs are negative. Urinalysis was significantly concentrated but no source of infection. CT abdomen pelvis showed colitis versus under distention of the bowel. Patient does not have any abdominal tenderness on exam. Review of the medications shows that she is on Entresto, dapagiflozin, spironolaction and lasix. Electrical Engineer Dr. Hernandez. Suspect hypertension is a combination of over medication and dehydration. Patient will be admitted to the hospital for further management of her hypotension. <Rafa Serrano MD - Last Filed: 12/14/24 18:10> Vital Signs Vital signs: Vital Signs Temperature 36.5 C 12/14/24 10:44 Pulse Rate 91 12/14/24 10:44 Respiratory Rate 15 12/14/24 10:44 Blood Pressure 114/98 H 12/14/24 10:44 Pulse Oximetry 99 12/14/24 10:44 Oxygen Delivery Room Air 12/14/24 10:44 Temperature 37.0 C 12/15/24 08:00 Pulse Rate 86 12/15/24 10:31 Respiratory Rate 16 12/15/24 08:00 Blood Pressure 107/72 12/15/24 10:31 Pulse Oximetry 100 12/15/24 08:00 Oxygen Delivery Room Air 12/15/24 08:00 <Jennifer Crain, BACK END ARCHITECT - Last Filed: 12/15/24 19:30> Vital Signs Temperature 36.5 C 12/14/24 10:44 Pulse Rate 91 12/14/24 10:44 Respiratory Rate 15 12/14/24 10:44 Blood Pressure 114/98 H 12/14/24 10:44 Pulse Oximetry 99 12/14/24 10:44 Oxygen Delivery Room Air 12/14/24 10:44 Temperature 37.0 C 12/15/24 08:00 Pulse Rate 86 12/15/24 10:31 Respiratory Rate 16 12/15/24 08:00 Blood Pressure 107/72 12/15/24 10:31 Pulse Oximetry 100 12/15/24 08:00 Oxygen Delivery Room Air 12/15/24 08:00 <Rafa Serrano MD - Last Filed: 12/14/24 18:10> Medical Decision Making MDM Narrative Medical decision making narrative: 84-year-old female with complaints of having mid abdominal pain for the past 2 weeks off and on. She states that she has been having constipation and diarrhea off and on for the past several months no vomiting states she does feel nauseous with the pain does come on currently pain is a 4/10 denies any urinary symptoms no fevers chills. patient intermittency becoming hypotensive - not symptomatic but readings as low as 60's and 70's systolic patients care was transferred to Dr. Serrano while in the ED, pt was admitted for her hypotension - see his notes above under course <Jennifer Crain, BACK END ARCHITECT - Last Filed: 12/15/24 19:30> Medical Records Medical records reviewed: Yes I reviewed the external patient's medical records. <Jennifer Crain APRN - Last Filed: 12/15/24 19:30> Vital Signs Vital Signs: Vital Signs Temperature 36.5 C 12/14/24 10:44 Pulse Rate 91 12/14/24 10:44 Respiratory Rate 15 12/14/24 10:44 Blood Pressure 114/98 H 12/14/24 10:44 Pulse Oximetry 99 12/14/24 10:44 Oxygen Delivery Room Air 12/14/24 10:44 Temperature 37.0 C 12/15/24 08:00 Pulse Rate 86 12/15/24 10:31 Respiratory Rate 16 12/15/24 08:00 Blood Pressure 107/72 12/15/24 10:31 Pulse Oximetry 100 12/15/24 08:00 Oxygen Delivery Room Air 12/15/24 08:00 <Jennifer Crain, BACK END ARCHITECT - Last Filed: 12/15/24 19:30> Vital Signs Temperature 36.5 C 12/14/24 10:44 Pulse Rate 91 12/14/24 10:44 Respiratory Rate 15 12/14/24 10:44 Blood Pressure 114/98 H 12/14/24 10:44 Pulse Oximetry 99 12/14/24 10:44 Oxygen Delivery Room Air 12/14/24 10:44 Temperature 37.0 C 12/15/24 08:00 Pulse Rate 86 12/15/24 10:31 Respiratory Rate 16 12/15/24 08:00 Blood Pressure 107/72 12/15/24 10:31 Pulse Oximetry 100 12/15/24 08:00 Oxygen Delivery Room Air 12/15/24 08:00 <Rafa Serrano MD - Last Filed: 12/14/24 18:10> Lab Data Result diagrams: 12/15/24 03:44 12/15/24 03:44 <Jennifer Crain BACK END ARCHITECT - Last Filed: 12/15/24 19:30> Labs: Lab Results 12/14/24 12/14/24 12/14/24 Range/Units 11:27 13:17 14:28 WBC 9.5 (4.5-10.0) K/mm3 RBC 4.54 (4.2-5.4) M/mm3 Hgb 14.7 (12.0-15.0) g/dL Hct 46.3 (37.0-47.0) % MCV 102.0 H (80-100) fl MCH 32.4 (26-34) pg MCHC 31.7 L (32-36) g/dl RDW 14.5 (11.5-14.5) % Plt Count 206 (150-375) k/mm3 MPV 11.7 H (7.4-10.4) fl Immature Gran % (Auto) 0.2 (0-0.5) % Neut % (Auto) 76.1 H (45.5-73.1) % Lymph % (Auto) 14.8 L (18.3-44.2) % Dent % (Auto) 7.6 (2.6-8.5) % Eos % (Auto) 0.7 (0-4.4) % Baso % (Auto) 0.6 (0.2-1.2) % Lymph # (Auto) 1.41 (0.9-3.2) K/mm3 Dent # (Auto) 0.7 H (0.1-0.6) K/mm3 Eos # (Auto) 0.1 (0-0.3) K/mm3 Baso # (Auto) 0.1 (0.0-0.1) K/mm3 Abs Immat Gran (auto) 0.02 (0.00-0.031) K/mm3 Absolute Neuts (auto) 7.2 H (1.3-6.7) K/mm3 Absolute Nucleated RBC 0.000 (0.0-0.012) K/mm3 Nucleated RBC % 0.0 (0.0-0.2) % Sodium 139 (137-145) mmol/L Potassium 4.1 (3.4-5.0) mmol/L Chloride 102 (98-107) mmol/L Carbon Dioxide 25 (22-30) mmol/L Anion Gap 12 (4-12) mmol/L BUN 21 H (7-17) mg/dL Creatinine 0.93 (0.7-1.0) mg/dL Estim Creat Clear Calc 34 ml/min Estimated GFR 57 L (59 - ) Glucose 83 (65-110) mg/dL Lactic Acid 1.9 (0.7-2.0) mmol/L Calcium 9.2 (8.4-10.2) mg/dL Total Bilirubin 1.0 (0.2-1.3) mg/dL AST 32 (14-36) U/L ALT 17 (6-35) U/L Alkaline Phosphatase 41 (38-126) U/L Total Protein 8.2 (6.3-8.2) g/dL Albumin 4.7 (3.5-5.1) g/dL Lipase 93 (23-300) U/L Urine Color Yellow (Yellow) Urine Appearance Clear (Clear) Urine pH 6.0 (5.0-9.0) Ur Specific Harmony > 1.045 H (1.001-1.035) Urine Protein Trace (Negative) mg/dL Urine Glucose (UA) 3+ H (Negative) mg/dL Urine Ketones 1+ H (Negative) mg/dL Ur Blood (Man) 1+ H (Negative) Urine Nitrate Negative (Negative) Urine Bilirubin Negative (Negative) Urine Urobilinogen 1.0 (<2.0) mg/dL Leukocyte Esterase Rfl Negative (Negative) MOLLY/UL Urine RBC 3-5 H (0-2) /hpf Urine WBC 0-5 (0-3) /hpf Ur Squamous Epith Cells None seen (Few) /hpf Urine Bacteria None seen /hpf Urine Casts 0-2 Influenza A (RT-PCR) Negative (Negative) Influenza B (RT-PCR) Negative (Negative) RSV (RT-PCR) Negative (Negative) SARS-CoV-2 RNA (RT-PCR) Negative (Negative) <Jennifer Crain, BACK END ARCHITECT - Last Filed: 12/15/24 19:30> Lab Results 12/14/24 12/14/24 12/14/24 Range/Units 11:27 13:17 14:28 WBC 9.5 (4.5-10.0) K/mm3 RBC 4.54 (4.2-5.4) M/mm3 Hgb 14.7 (12.0-15.0) g/dL Hct 46.3 (37.0-47.0) % MCV 102.0 H (80-100) fl MCH 32.4 (26-34) pg MCHC 31.7 L (32-36) g/dl RDW 14.5 (11.5-14.5) % Plt Count 206 (150-375) k/mm3 MPV 11.7 H (7.4-10.4) fl Immature Gran % (Auto) 0.2 (0-0.5) % Neut % (Auto) 76.1 H (45.5-73.1) % Lymph % (Auto) 14.8 L (18.3-44.2) % Dent % (Auto) 7.6 (2.6-8.5) % Eos % (Auto) 0.7 (0-4.4) % Baso % (Auto) 0.6 (0.2-1.2) % Lymph # (Auto) 1.41 (0.9-3.2) K/mm3 Dent # (Auto) 0.7 H (0.1-0.6) K/mm3 Eos # (Auto) 0.1 (0-0.3) K/mm3 Baso # (Auto) 0.1 (0.0-0.1) K/mm3 Abs Immat Gran (auto) 0.02 (0.00-0.031) K/mm3 Absolute Neuts (auto) 7.2 H (1.3-6.7) K/mm3 Absolute Nucleated RBC 0.000 (0.0-0.012) K/mm3 Nucleated RBC % 0.0 (0.0-0.2) % Sodium 139 (137-145) mmol/L Potassium 4.1 (3.4-5.0) mmol/L Chloride 102 (98-107) mmol/L Carbon Dioxide 25 (22-30) mmol/L Anion Gap 12 (4-12) mmol/L BUN 21 H (7-17) mg/dL Creatinine 0.93 (0.7-1.0) mg/dL Estim Creat Clear Calc 34 ml/min Estimated GFR 57 L (59 - ) Glucose 83 (65-110) mg/dL Lactic Acid 1.9 (0.7-2.0) mmol/L Calcium 9.2 (8.4-10.2) mg/dL Total Bilirubin 1.0 (0.2-1.3) mg/dL AST 32 (14-36) U/L ALT 17 (6-35) U/L Alkaline Phosphatase 41 (38-126) U/L Total Protein 8.2 (6.3-8.2) g/dL Albumin 4.7 (3.5-5.1) g/dL Lipase 93 (23-300) U/L Urine Color Yellow (Yellow) Urine Appearance Clear (Clear) Urine pH 6.0 (5.0-9.0) Ur Specific Harmony > 1.045 H (1.001-1.035) Urine Protein Trace (Negative) mg/dL Urine Glucose (UA) 3+ H (Negative) mg/dL Urine Ketones 1+ H (Negative) mg/dL Ur Blood (Man) 1+ H (Negative) Urine Nitrate Negative (Negative) Urine Bilirubin Negative (Negative) Urine Urobilinogen 1.0 (<2.0) mg/dL Leukocyte Esterase Rfl Negative (Negative) MOLLY/UL Urine RBC 3-5 H (0-2) /hpf Urine WBC 0-5 (0-3) /hpf Ur Squamous Epith Cells None seen (Few) /hpf Urine Bacteria None seen /hpf Urine Casts 0-2 Influenza A (RT-PCR) Negative (Negative) Influenza B (RT-PCR) Negative (Negative) RSV (RT-PCR) Negative (Negative) SARS-CoV-2 RNA (RT-PCR) Negative (Negative) <Rafa Serrano MD - Last Filed: 12/14/24 18:10> Discharge Plan Discharge Clinical Impression: Dehydration, Abdominal pain <Jennifer Crain APRN - Last Filed: 12/15/24 19:30> Patient Disposition: Still a Patient <Jennifer Crain APRN - Last Filed: 12/15/24 19:30> Condition: Stable <Jennifer Crain APRN - Last Filed: 12/15/24 19:30>
--- OUTSIDE RECORDS SUMMARY | 2024-12-14 11:50 | XMS_ITS | Clinical Summary ---
Author Organization [facility] Address [address] [place] [address] Care Team Providers Care Director Consumer Name Role Phone Reynaldo Flannery DO Unavailable [phone] Guanakito Holland MD Unavailable [phone] Jaleel Mcgovern MD Primary Care Provider [phone] Allergies Active Allergy Reactions Criticality Noted Date [...] is to continue close follow-up with local tin tie machine operator automatic and therefore would like to discuss with [...] needed. Assessment & Plan (03/12/2017 2:39 PM SPECIAL SERVICES COORDINATOR): Patient has Xanax for p.r.n. use. She [...] his passing. She did see someone at [facility] for awhile. We discussed Senior renewal. She declines at the present time. She would like to continue to monitor her panic attacks and was instructed to use Xanax as previously prescribed on an as needed basis. Coronary artery disease invo lving [place] coronary artery of [place] heart 12/25/2016 Overview (04/19/2019): Status post PCI in June 2013 (RL). Normal Cardiolite in August 2014. Assessment & Plan (08/29/2022 9:25 PM CDT): Denies any chest pain or anginal equivalent. Recent drop in her LVEF to 20% from 40% with unclear etiology. Continue aspirin, metoprolol and Crestor. Would like to discuss with her local tin tie machine operator automatic about additional ischemic workup as she plans [...] given Assessment & Plan (03/12/2017 2:37 PM SPECIAL SERVICES COORDINATOR): Blood pressure is slightly elevated during office [...] is less than 70. Will discuss local tin tie machine operator automatic about statin therapy and possible PCSK9 inhibitor. [...] 06/24/2017 Assessment & Plan (03/12/2017 2:39 PM SPECIAL SERVICES COORDINATOR): Influenza A negative influenza B negative. Sore throat 03/12/2017 06/24/2017 Assessment & Plan (03/12/2017 2:39 PM SPECIAL SERVICES COORDINATOR): Rapid strep negative. Viral URI with cough 03/12/2017 018 Assessment & Plan (03/12/2017 2:40 PM SPECIAL SERVICES COORDINATOR): Humidification, fluids, and rest were recommended. Patient [...] 11:05 AM CDT): Routinely follows-up with at [facility]. NSR today in office. Cnt. Eliquis for anticoagulation Assessment & Plan (03/12/2017 2:37 PM SPECIAL SERVICES COORDINATOR): Patient will continue routine follow-up with Dr. Pennie pierre and local tin tie machine operator automatic as recommended. She reports compliance with her [...] Description 11/24/2024 11:00 AM CDT Ancillary Procedure [facility] Cardiology [address] [facility] [address] [place] [id number] Paroxysmal atrial fibrillation (HCC); Sick sinus syndrome (HCC); Cardiac pacemaker in situ 11/23/2024 Orders Only [facility] Cardiology [address] [place] [address] [place] [phone] Mannie Hernandez MD Permanent atrial fibrillation (HCC) (Primary Dx); Cardiac pacemaker in situ; Sick sinus syndrome (HCC) 11/02/2024 10:30 AM CDT Ancillary Procedure [facility] Cardiology [address] [place] [address] [place] [phone] Cardiac pacemaker in situ [Z95.0] (Primary Dx); [...] o f : Angina Diabetes Sister 1 [place] Heart attack Sister 1 [place] Heart disease Sister 1 [place] Other Sister 3 DM, CAD; Other Sister 4 Valve Replaceme nt; Relation Name Status Comments Brother 1 68 Brother 2 79 Child Daughter Chelle Jara Father Derek (Age 79) Maternal Grandmother Grandma Mother (Age 93) Sister 1 [place] Alive Sister 2 Alive Sister 3 Sister [...] file Legal Sex Female 11:18 AM SPECIAL SERVICES COORDINATOR Gender Identity Female 10/09/2022 9:08 [...] 05/25/2019, 01/06/2017 Medical Devices Implanted Type Area Residential Case Manager Device Identifier Shelf Expiration Date Model / Serial / Lot Biotronik Inc [id number] Endocardial Pacing Lead Promri Solia Jt 45 - [id number] - [id number] Implanted:Qty: 1 on 07/29/2018 by Guanakito Holland MD at [facility] Lead [employer] Inc 12/22/2019 [id number] / [id number] / Biot[employer]ik Inc [id number] Endocardial Pacing Lead Promri Solia T 53 - [id number] - [id number] Implanted:Qty: 1 on 07/29/2018 by Guanakito Holland MD at [facility] Lead [employer] 12/22/2019 [id number] / [id number] / Biotronik Inc [id number] Solia S 45cm Bipolar Active Fixation Lead Pacing Steroid Eluting - [id number] - [id number] Implanted:Qty: 1 on 09/14/2018 by Reynaldo Flannery DO at [facility] Lead [employer] Inc [id number] 05/21/2020 [id number] / [id number] / [id number] Bi[employer] Inc [id number] Edora Promri 56y68q8.5mm 1 Chamber Rate Adaptive Unipolar Bipolar - [id number] - [id number] Implanted:Qty: 1 on 07/29/2018 by Guanakito Holland MD at [facility] Pacemaker [employer] Inc 11/22/2019 [id number] / [id number] / Medtronic Cardiac Rhythm Mgmt [id number] Tyrx 2.7x2.5in Medium Envelope Absorbable Polyarylate Minocycline - [id number] Implanted:Qty: 1 on 09/14/2018 by Reynaldo Flannery DO at [facility] Med[employer] Inc 10/21/2018 [id number] / / [id number] Chinchilla Vascular Perclose 6fr Vascular Closure 68959-47 - [id number] Implanted:Qty: 1 on 08/03/[address] [facility] [employer] 03/23/2024 1267 3-03 / / [id number] Procedures Procedure Name Priority Date/Time Associated Diagnosis [...] Read Routine (OP Routine) 04/06/2020 1:21 PM SPECIAL SERVICES COORDINATOR Visit for screening mammogram Essential hypertension Mixed [...] 3.0 years 7 months remaining to LEANA. DAIRY FARMER-93 %. Presenting rhythm- Vpaced. Underlying rhythm-Vpaced with [...] pacing and sensing thresholds. Presenting rhythm: Vpaced. DAIRY FARMER-93 %. No Ventricular arrhythmias detected. Medication: Eliquis, Entresto. Office pacemaker f/u in 3-6 months. Biotronik remote f/u 02/01/2025. Merry Cavanaugh, BRAYAN Result [facility] Mannie Hernandez MD CV CARDIAC SERVICES PROC EDURES Final Result * Screening Mammogram Bilateral W Oscar (04/06/2020 1:21 PM SPECIAL SERVICES COORDINATOR) Anatomical Region Laterality Modality Breast Bilateral Mammography 04/06/2020 2:09 PM SPECIAL SERVICES COORDINATOR Impressions 04/06/2020 3:13 PM SPECIAL SERVICES COORDINATOR There is no mammographic evidence of malignancy. A 1 year screening mammogram is recommended. BI-RADS: 2 - Benign. The patient will be entered into a reminder system with a target due date of 1 year for her next mammogram. Electronically signed by: Micaela Jang MD Narrative 04/06/2020 3:13 PM SPECIAL SERVICES COORDINATOR EXAMINATION: SCREENING MAMMOGRAM BILATERAL W OSCAR ORDERING [...] has been no suspicious interval change. Result [facility] Ryan Castrejon MD IMG MAMMO PROCEDURES Final Res ult * Colonoscopy (05/26/2019) Anatomical Region Laterality Modality Other Historical Provider ENDOSCOPY PROCEDURES Roshni l Result * DEXA SCAN (11/14/2014) DEXA Scan Abnormal Comment:Osteopenia Historical Provider HEALTH MAINTENANCE Final Result from Last 3 Months or Most Recently Relevant to Health Maintenance Insurance MEDICARE REPLACED BY [facility] MEDICARE REPLACED BY [facility] MEDICARE SUPPLEMENT MEDICARE [facility] MEDICARE SUPPLEMENT MEDICARE [place] [employer] Advance Directives For more information, please contact: [phone] * LIMITED - No CPR (Latest Code [...] AM 10/19/2019 7:30 PM Care Teams Director Consumer Relationship Specialty Start Date End Date Jaleel Mcgovern MD PCP - General Family Practice 07/18/22 Reynaldo Flannery DO Consulting Physician Cardiology 09/26/17 Guanakito Holland MD Consulting Physician Cardiovascular Disease 07/29/18
--- OUTSIDE RECORDS SUMMARY | 2024-12-14 11:50 | XMS_ITS | Encounter Summary ---
Author Organization [facility] Healthcare Address [address] [place] [address] Care Team Providers Care Machine Assistant Name Role Phone Reynaldo Flannery DO Unavailable [phone] Guanakito Holland MD Unavailable [phone] Jaleel Mcgovern MD Primary Care Provider [phone] Encounter Details Date Type Department Care Team (Late st Contact Info) Description 06/21/2024 Orders Only [facility] Health Information Management [address] [place] [id number] Scanning, Provider Social History Tobacco Use [...] Recorded Patient Health Questionnaire-2 Score 0 08/23/2022 [facility] ional [facility] [...] place to sleep or slept in a fpc (including now)? No 08/12/2022 Personal Safety Answer Date Recorded Have you ever been in or are you currently in a harmful physical or emotional relationship or is someone making you feel afraid or unsafe? Denies 08/12/2022 Comments No Sex and Gender Information Value Date Recorded Sex Assigned at Not on file Legal Sex Female 11:18 AM ELECTRIC UTILITY LINEWORKER Gender Identity Female 10/09/2022 9:08 AM CDT [...] on filedocumented in this encounter Care Teams Machine Assistant Relationship Specialty Start Date End Date Jaleel Mcgovern MD PCP - General Family Practice 07/18/22 Reynaldo Flannery DO Consulting Physician Cardiology 09/26/17 Guanakito Holland MD Consulting Physician Cardiovascular Disease 07/29/18 documented as of this encounter
--- OUTSIDE RECORDS SUMMARY | 2024-12-14 11:50 | XMS_ITS | Encounter Summary ---
Author Organization [facility] Healthcare Address [address] [place] [address] Care Team Providers Care Reporting Specialist Name Role Phone Reynaldo Flannery DO Unavailable [phone] Guanakito Holland MD Unavailable Jaleel Mcgovern MD Primary Care Provider [phone] Encounter Details Date Type Department Care Team (Late st Contact Info) Description 08/12/2022 Telephone [facility] Physical Medicine and Rehabilitation [address] [place] [address] Kimberly Gibbons, TRAM DRIVER Social History Tobacco Use Types Packs/Day Years [...] Date Recorded PHQ-2 Total Score 0 08/12/2022 [facility] Occupat ional Health [...] on file Legal Sex Female 11:18 AM CONSUMER SERVICES ADVISOR Gender Identity Female 10/09/2022 9:08 AM CDT [...] 08/12/2022 2:22 PM BENJAT Yissel Ayers , LINER MACHINE OPERATOR HELPER Feeling down, depressed, or hopeless Not at all 08/12/2022 2:22 PM CDT Yissel Ayers , LINER MACHINE OPERATOR HELPER Trouble falling or staying asleep, or sleeping too much Several days 08/12/2022 2:22 PM CDT Miles Ayers, LINER MACHINE OPERATOR HELPER Feeling tired or having little energy Several days 08/12/2022 2:22 PM CDT Yissel Ayers , LINER MACHINE OPERATOR HELPER Poor appetite or overeating Not at all 08/12/2022 2: 22 PM BENJAT Yissel Ayers, LINER MACHINE OPERATOR HELPER Feeling bad about yourself - or that you are a failure or have let yourself or your family down Not at all 08/12/2022 2:22 PM CDT Yissel Ayers , LINER MACHINE OPERATOR HELPER Trouble concentrating on things, such as reading the newspaper or watching television Not at all 08/12/2022 2:22 PM CDT Yissel Ayers , LINER MACHINE OPERATOR HELPER Moving or speaking so slowly that other people could have noticed? Or the opposite - being so fidgety or restless that you have been moving around a lot more than usual. Not at all 08/12/2022 2:22 PM CDT Yissel Ayers , LINER MACHINE OPERATOR HELPER Thoughts that you would be better off or hurting yourself in some way Not at all 08/12/2022 2:22 PM Yissel Doshi, LINER MACHINE OPERATOR HELPER Patient Health Questionnaire-9 Score 2 08/12/2022 2:22 PM CDT Yissel Ayers, LINER MACHINE OPERATOR HELPER documented as of this encounter Miscellaneous Notes * Pre-Admission Screening - Kimberly Gibbons SLP - 08/12/2022 9:44 AM CDT [facility] Physical Medicine and Rehabilitation Preadmission Screening [...] level of care. Patient is currently at [facility] . The patient is being referred and [...] Payor Source: Primary: Medicare A&B Secondary:Policy number: [id number] Case discussed with Dr. Nena Oneal on [...] Use: Not on file Patient's Preferred Language: Estonian Cultural Requests During Hospitalization: none conveyed Acute [...] DAPT who presents after receiving TNK at [facility] as a thrombectomy page. Per the patient's family at bedside, the patient was having lunch with one of her daughters when her daughter noticed that she started leaning towards the right. She subsequently became mute and developed a left gaze preference. Her last known normal was 1305. She wastaken to [facility], there her NIHSS was reportedly a [address] physician[address]. Gomez evaluated the patient by telestroke and recommended a CTH + CTA head and neck. She had a hyperdense left MCA sign on CTH and a left M1 occlusion on CTA. She was a GO for TNK and received the drug at 1423.She was then transferred to [facility] for thrombectomy evaluation. On arrival her NIHSS [...] DAPT who presents after receiving TNK at [facility] as a thrombectomy page. The patient is GO for MT, she will need repeat labs to ensure that the values are real. If they arethen she will need a workup for metabolic acidosis. Moreover, she has pulmonary edema on CT CAP that needs follow up. Dis[facility] Neuro Critical Care Admission H&P CC: Acute right sided weakness HPI: Ms Giron is a 82y/o female with PMH of CAD, UT, SSS s/p Biotronik pacemaker, Atrial fibrillation (previously [...] BP of 68/31. She was taken to [facility] for further evaluation as a [...] of TNK at 14:28 and transferred to [facility] ED for mechanical thrombectomy evaluation. Upon arrival to [facility] ED her vital signs were: HR 82, [...] RA lead revision on 09/14/18 done at [facility]), non-morbid obesity (BMI 30), GENNY non compliant with CPAP, PAD and carotid artery stenosis who presented to [facility] on 08/03/22 with R si ded hemiparesis, [...] their arrival. She was initially taken to [facility] to evaluation for stroke. Her BP's improved to 109/[address] Head showed a large hyperdense MCA without hemorrhage, then subsequent CTA Head/Neck showed complete occlusion of theM1 segment of the L MCA. There were also carotid stenoses in the proximal LICA (80%) and proximal SKYLAR (50%). Ms Giron was then transferred to [facility] for tPA and thrombectomy. Ms Giron had an UT in 2013 requiring JOI to mid LCx performed at [facility]. Subsequently shedeveloped atrial fibrillation and tachy-hailey [...] Hernandez on 07/18/22): LD Entresto BID, [place] 25, and Lasix 20 daily. - recommend [...] woman with past medical history of CAD, UT, SSS s/p Biotronikpacemaker, Atrial fibrillation (previously on [...] Work-up: - Monitor on telemetry Consults: SMART (Coordinator Cardiopulmonary Services, PT/OT, TRAM DRIVER, Spiritual Care) #Hyperlipidemia LDL on admission was 68. Goal LDL for secondary stroke prevention is <70. She has previously refused anti-lipid medication reporting feeling unwell on medicaiton and with muscle pain without weakness. # CAD s/p UT with stent placement (2013) # HFrEF (LVEF 20%, was LVEF 40% in 2019) She follows with Dr. Hernandez [facility] Cardiology - last seen 07/18/22 in [...] BID and taking intermittently, however her pharmacy ([facility]) indicates she does not fill this medication [...] in the field was 68/31, 90/45 at [place]. Initially responded to fluid boluses. Noted to [...] a 82y/o female with PMH of CAD, UT, SSS s/p Biotronik pacemaker, Atrial fibrillation (previously [...] BP of 68/31. She was taken to [facility] for further evaluation as a [...] of TNK at 14:28 and transferred to [facility] ED for mechanical thrombectomy evaluation. Upon arrival to [facility] ED her vital signs were: HR 82, [...] woman with past medical history of CAD, UT, SSS s/p Biotronikpacemaker, Atrial fibrillation (previously on [...] differential for consideration per TOAST criteria include: [id number] embolism or cardioembolism. Cardioembolism is most likely [...] mg PO qHS (SPARCL trial). The current [place] Stroke Association guidelines recommend long-term treatment with [...] muscle pain without weakness. # CAD s/p UT with stent placement (2013) # HFrEF (LVEF 20%, was LVEF 40% in 2019) She follows with Dr. Hernandez [facility] Cardiology - last seen 07/18/22 in [...] BID and taking intermittently, however her pharmacy ([facility]) indicates she does not fillthis medication and [...] admitted to acute: 08/03/22 Precautions/Restrictions: Aspiration, Falls [place] Suicide Severity Rating Scale: Allergies: Allergies Allergen [...] mg 40 mg feeding tube Daily Chet ePrez MD PhD losartan (COZAAR) tablet 12.5 mg [...] bed mobility SBA (08/12/2022 9:31 AM) Cognition/Communication/Swallowing: TRAM DRIVER Communication: expressive aphasia (08/12/2022 9:31 AM) TRAM DRIVER Swallowing: Mild Dysphagia - pureed/thin (08/12/2022 9:31 AM) Conditions requiring acute rehab and risk for complications: Gait dysfunction - risk for falls and further injury, fracture Uncontrolled Hypertension - risk for stroke, stroke extension, UT Decreased mobility - Risk for Fall, skin [...] by a provider, Intense PT/OT/SP, Access to Needle Loom Operator physicians, Supervised feeding groups, Frequent Neuroassessment, [...] the intensive Inpatient rehabilitation program offered at [facility] . documented in this encounter Plan of Treatment Not on file documented as of this encounter Visit Diagnoses Not on filedocumented in this encounter Care Teams Reporting Specialist Relationship Specialty Start Date End Date Jaleel Mcgovern MD PCP - General Family Practice 07/18/22 Reynaldo Flannery DO Consulting Physician Cardiology 09/26/17 Guanakito Holland MD Consulting Physician Cardiovascular Disease 07/29/18 documented as of this encounter
--- OUTSIDE RECORDS SUMMARY | 2024-12-14 11:50 | XMS_ITS | Encounter Summary ---
Author Organization [facility] Healthcare Address [address] [place] [address] Care Team Providers Care Administrative Specialist Name Role Phone Reynaldo Flannery DO Unavailable [phone] Guanakito Holland MD Unavailable [phone] Jaleel Mcgovern MD Primary Care Provider [phone] Encounter Details Date Type Department Care Team (Late st Contact Info) Description 05/21/2024 Orders Only [facility] Health Information Management [address] [place] [id number] Scanning, Provider Social History Tobacco Use [...] or relatives? Once a week 08/12/2022 Attends [employer] Not on file 08/12 Active Member [...] 08/23/2022 [facility] Occupat ional Health - [...] on file Legal Sex Female 11:18 AM PREVENTIVE MAINTENANCE COORDINATOR Gender Identity Female 10/09/2022 9:08 AM [...] on filedocumented in this encounter Care Teams Administrative Specialist Relationship Specialty Start Date End Date Jaleel Mcgovern MD PCP - General Family Practice 07/18/22 Reynaldo Flannery DO Consulting Physician Cardiology 09/26/17 Guanakito Holland MD Consulting Physician Cardiovascular Disease 07/29/18 documented as of this encounter
[2024-12-14 11:52] LABS: Alanine Aminotransferase 17 U/L (6-35); Albumin Level 4.7 g/dL (3.5-5.1); Alkaline Phosphatase 41 U/L (38-126); Anion Gap 12 mmol/L (4-12); Aspartate Amino Transferase 32 U/L (14-36); Bilirubin,Total 1.0 mg/dL (0.2-1.3); Blood Urea Nitrogen 21 mg/dL (7-17); Calcium 9.2 mg/dL (8.4-10.2); Carbon Dioxide 25 mmol/L (22-30); Chloride 102 mmol/L (98-107); Estimated CRCL calculation 34 ml/min; Estimated Glomerular Filt Rate 57; Glucose 83 mg/dL (65-110); Lipase 93 U/L (23-300); Potassium 4.1 mmol/L (3.4-5.0); Sodium 139 mmol/L (137-145); Total Protein 8.2 g/dL (6.3-8.2)
--- NOTE | 2024-12-14 12:06 | PC.NURSE ---
this RN into room at this time after ERT stated that the patient was hypotensive. patient was repositioned and BP re-eval. hypotensive remained and ERP notified with orders received. patient denies any symptoms other then some nausea; stated that infact her pain has reduced to 3/10 PPS.
[2024-12-14] MEDS: SODIUM CHLORIDE 0.9% IV 1,000 ML 999 ML IV CONT (12:10)
[2024-12-14 13:32] LABS: Add Urine Microscopic? YES; Appearance Urine Clear (Clear); Glucose Urine UA 3+ mg/dL (Negative); Leukocyte Esterase Ur Negative LEU/UL (Negative); Nitrate Urine Negative (Negative); Non Pathogenic Casts 0-2; Specific Grav Ur > 1.045 (1.001-1.035)
[2024-12-14] MEDS: LACTATED RINGERS 1,000 ML 999 ML IV CONT (13:52)
[2024-12-14 15:16] LABS: Influenza A QL RT-PCR Negative (Negative); Influenza B QL RT-PCR Negative (Negative); RSV RNA, RT-PCR Negative (Negative); SARS-CoV-2 RNA PCR Negative (Negative)
--- NOTE | 2024-12-14 17:24 | PM.IMHP ---
H&P: HPI History of Present Illness Date/Time: 12/14/24 17:24 Chief Complaint: Abdominal pain Narrative: Abena Giron is an 84-year-old female who presents with complaints of having abdominal pain on off for a couple weeks. She states that she alternates having constipation to diarrhea over the past several months. She denies having any vomiting but states she feels nauseous whenever she does have the pain. Her last bowel movement was last night states that she was up all night having small bowel movements pain is to the mid abdomen but feeling better at this time rating it a 4/10. Denies Urine symptoms. No fever chills. Patient was normotensive on arrival then dipped down to 70s over 50s. Received 1 L bolus with normalization of blood pressure but again became hypotensive and received another bolus. Chest x-ray showed cardiomegaly with mild interstitial edema. Lactic acid was normal at 1.9. Vital swab was negative. Urinalysis was concentrated but no signs of infection. CT abdomen pelvis showed colitis versus under distention of the bowel. No abdominal tenderness was noted. Patient is getting admitted for further evaluation and treatment. Review of Systems Review of Systems: - CONSTITUTIONAL: Denies weight loss, fever and chills. - HEENT: Denies changes in vision and hearing - RESPIRATORY: Denies SOB and cough. - CV: Denies palpitations and CP. - GI: Reports abdominal pain, nausea, denies vomiting and reports chronic diarrhea alternating with constipation. - : Denies dysuria and urinary frequency. - MSK: Denies myalgia and joint pain. - SKIN: Denies rash and pruritus. - NEUROLOGICAL: Denies headache and syncope. - PSYCHIATRIC: Denies recent changes in mood. Denies anxiety and depression. [facility] Past Medical History Medical History Peripheral vascular disease Hyperlipidemia Cerebrovascular accident (07/2022) status post TNK mechanical thrombectomy residual right-sided weakness Chronic anticoagulation Atrial fibrillation h/o Coronary artery disease Heart failure with reduced ejection fraction Aortic aneurysm Hypertension Anxiety Surgical History Surgical History History of permanent cardiac pacemaker placement History of coronary artery stent placement History of ERCP History of cholecystectomy Family History Family History Sibling Cancer Diabetes mellitus Heart disease Social History Social History Social History: Surrogate medical decision maker: ?All of her children? Code status: Do not resuscitate. Smoking status: Former smoker Additional smoking assessment comments: quit in 1974 Alcohol intake: never Substance use: never Substance use type: does not use Do You Feel Safe in your Home?: Yes Lack of Transportation: No Lack of Food: Never True Current Housing: I Have Housing Concerned About Future Housing: No Difficulty Paying Gas/Electric Bills: No Difficulty Paying for Meds: No Currently Unemployed: No Education: High School Diploma/GED Difficulty w/ Childcare or Family Care: No Living arrangements: alone Additional living arrangements comments: She lives alone. She has 4 daughters and 2 sons. Occupation/Education: retired Additional occupation/education comments: Retired, previously worked for [employer]. Spiritual care concerns: No Agree to blood products: Yes Meds Home Medications and Allergies Home Medications ?Medication ?Instructions ?Recorded ?Confirmed ?Type cetirizine 10 mg capsule (Zyrtec) 10 mg PO DAILY PRN allergy 05/29/22 06/28/24 Rx symptoms #20 caps aspirin 81 mg tablet,delayed 81 mg PO DAILY #90 tabs 05/26/23 06/28/24 Rx release (Adult Low Dose Aspirin) dapagliflozin propanediol 10 mg 10 mg PO DAILY 01/15/24 06/28/24 History tablet (Farxiga) albuterol sulfate 90 mcg/actuation 1 inh inhalation Q4H PRN shortness 04/15/24 06/28/24 Rx aerosol inhaler (Ventolin HFA) of breath or wheezing #8.5 grams acetaminophen 500 mg tablet 1,000 mg PO Q6H PRN pain 06/07/24 06/28/24 History (Acetaminophen Extra Strength) sacubitril 24 mg-valsartan 26 mg 1 tablet PO BID 06/28/24 06/28/24 History tablet (Entresto) fluticasone propionate 50 1 spray intranasal BID PRN nasal 07/19/24 Rx mcg/actuation nasal congestion #16 grams spray,suspension (Flonase Allergy Relief) sertraline 25 mg tablet 25 mg PO DAILY #90 tabs 08/17/24 Rx furosemide 20 mg tablet See Rx Instructions .Route 08/30/24 Rx .COMPLEX #90 tabs apixaban 5 mg tablet (Eliquis) 5 mg PO Q12H #180 tabs 09/14/24 Rx ondansetron 4 mg disintegrating 4 mg PO Q8H PRN nausea and 11/11/24 11/11/24 Rx tablet vomiting #30 tabs terbinafine HCl 250 mg tablet 250 mg PO DAILY #84 tabs 11/11/24 11/11/24 Rx azithromycin 250 mg tablet See Rx Instructions PO .COMPLEX #6 11/23/24 11/23/24 Rx (Zithromax Z-Robbie) tabs spironolactone 25 mg tablet 25 mg PO DAILY #90 tabs 11/30/24 Rx Allergies Allergy/AdvReac Type Severity Reaction Status Date / Time codeine Allergy Intermediate rash and Verified 12/14/24 10:48 hives morphine Allergy Intermediate rash and Verified 12/14/24 10:48 hallucination Penicillins Allergy Intermediate rash and Verified 12/14/24 10:48 hives prednisone Allergy Unknown Unknown Verified 12/14/24 10:48 amiodarone AdvReac Intermediate Abdominal Verified 12/14/24 10:48 Pain [id number] Reductase AdvReac Intermediate pain Verified 12/14/24 10:48 Inhibitor b/p meds Allergy Unknown Other Uncoded 06/07/24 14:35 Vital Signs Vital Signs - 24 hr 12/14/24 10:44 12/14/24 10:55 12/14/24 11:19 Temperature 97.7 F 97.7 F Pulse Rate 91 91 86 Respiratory Rate 15 20 20 Blood Pressure 114/98 H 114/98 H 110/60 Pulse Oximetry 99 99 99 Oxygen Delivery Room Air Room Air 12/14/24 11:30 12/14/24 11:55 12/14/24 12:05 Temperature Pulse Rate 85 89 86 Respiratory Rate 16 16 15 Blood Pressure 88/58 L 74/55 L 70/57 L Pulse Oximetry 97 97 99 Oxygen Delivery 12/14/24 12:06 12/14/24 12:09 12/14/24 12:24 Temperature Pulse Rate 88 90 82 Respiratory Rate 12 10 L 13 Blood Pressure 69/59 L Pulse Oximetry Oxygen Delivery 12/14/24 12:26 12/14/24 12:34 12/14/24 12:43 Temperature Pulse Rate 84 80 80 Respiratory Rate 16 20 14 Blood Pressure 57/47 L 112/82 112/67 Pulse Oximetry 100 99 98 Oxygen Delivery 12/14/24 12:43 12/14/24 12:56 12/14/24 13:18 Temperature Pulse Rate 82 80 87 Respiratory Rate 20 18 14 Blood Pressure Pulse Oximetry 99 Oxygen Delivery 12/14/24 13:30 12/14/24 13:31 12/14/24 13:39 Temperature Pulse Rate 87 89 82 Respiratory Rate 16 16 16 Blood Pressure 77/43 L 83/60 L Pulse Oximetry Oxygen Delivery 12/14/24 13:50 12/14/24 13:52 12/14/24 14:00 Temperature Pulse Rate 87 87 82 Respiratory Rate 23 H 20 16 Blood Pressure 86/58 L 93/49 L Pulse Oximetry 99 98 Oxygen Delivery 12/14/24 14:01 12/14/24 14:22 12/14/24 14:30 Temperature Pulse Rate 86 85 80 Respiratory Rate 16 21 H 16 Blood Pressure 107/65 Pulse Oximetry Oxygen Delivery 12/14/24 14:31 Temperature Pulse Rate 84 Respiratory Rate 20 Blood Pressure Pulse Oximetry Oxygen Delivery Exam Narrative: GENERAL: Well-appearing, well-nourished, and in no acute distress. HEAD: Normocephalic, atraumatic. EYES: PERRLA and EOMI. ENT: Nares clear, no rhinorrhea or epistaxis. Mucous membranes moist. NECK: Supple. No adenopathy or masses. No carotid bruits or JVD CHEST: Clear to auscultation. No respiratory distress. No wheezes rales or rhonchi HEART: Regular rate and rhythm. No murmur heard. Normal peripheral pulses. ABDOMEN: Soft, nondistended, normal active bowel sounds EXTREMITIES: Normal range of motion. No edema. SKIN: Warm, dry, no rash. NEURO: No focal deficits. Alert and oriented x3. PSYCH: Normal mood and affect. H&P: Results Labs Labs: Short CBC 12/14/24 Range/Units 11:27 WBC 9.5 (4.5-10.0) K/mm3 Hgb 14.7 (12.0-15.0) g/dL Hct 46.3 (37.0-47.0) % Plt Count 206 (150-375) k/mm3 BMP 12/14/24 11:27 Sodium 139 Potassium 4.1 Chloride 102 Carbon Dioxide 25 BUN 21 H Creatinine 0.93 Glucose 83 Calcium 9.2 Liver Function 12/14/24 Range/Units 11:27 Total Bilirubin 1.0 (0.2-1.3) mg/dL AST 32 (14-36) U/L ALT 17 (6-35) U/L Alkaline Phosphatase 41 (38-126) U/L Albumin 4.7 (3.5-5.1) g/dL Urine 12/14/24 Range/Units 13:17 Urine Color Yellow (Yellow) Urine Appearance Clear (Clear) Urine pH 6.0 (5.0-9.0) Ur Specific [place] > 1.045 H (1.001-1.035) Urine Protein Trace (Negative) mg/dL Urine Glucose (UA) 3+ H (Negative) mg/dL Assessment and Plan Assessment and plan (1) Heart failure with reduced ejection fraction: Code(s): I50.20 - Unspecified systolic (congestive) heart failure Status: Acute (2) Pacemaker: Code(s): Z95.0 - Presence of cardiac pacemaker Status: Acute (3) Atrial fibrillation: Code(s): I48.91 - Unspecified atrial fibrillation Status: Acute (4) CAD (coronary artery disease): Code(s): I25.10 - Atherosclerotic heart disease of [place] coronary artery without angina pectoris Status: Acute (5) Aortic aneurysm: Code(s): I71.9 - Aortic aneurysm of unspecified site, without rupture Status: Acute (6) Aortic atherosclerosis: Code(s): I70.0 - Atherosclerosis of aorta Status: Acute (7) Peripheral vascular disease: Code(s): I73.9 - Peripheral vascular disease, unspecified Status: Acute (8) Chronic anticoagulation: Code(s): 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 She states that she alternates having constipation to diarrhea over the past several months. She denies having any vomiting but states she feels nauseous whenever she does have the pain. Her last bowel movement was last night states that she was up all night having small bowel movements pain is to the mid abdomen but feeling better at this time rating it a 4/10. Denies Urine symptoms. No fever chills. Patient was normotensive on arrival then dipped down to 70s over 50s. Received 1 L bolus with normalization of blood pressure but again became hypotensive and received another bolus. Chest x-ray showed cardiomegaly with mild interstitial edema. Lactic acid was normal at 1.9. Vital swab was negative. Right cell count is 9.5 hemoglobin is 14.7 platelet count is 206. LFTs normal BMP with sodium of 139 potassium 4.1 chloride 102 bicarbonate 25 BUN 21 creatinine 0.93 calcium of 9.2. Urinalysis was concentrated but no signs of infection. CT abdomen pelvis showed colitis versus under distention of the bowel. No abdominal tenderness was noted. Small amount of nonspecific fat stranding and fluid in the abdomen and pelvis noted there is a 1.8 cm indeterminate left renal lesion. Small left-sided pleural effusion there is 4 mm pulmonary nodule in the right lower lobe. Patient is getting admitted for further treatment. Hypotension unclear etiology however suspect medication induced patient multiple different antihypertensives for her congestive heart failure. Will hold these medications and monitor. No signs of infection evident on initial evaluation will continue to monitor. CT abdomen with possible colitis versus incomplete bowel distention. Currently nontender. Reports blood pressure chronically borderline as well. Reviewed previous records Congestive heart failure with reduced ejection fraction EF of 20% 08/10 due to hypertension meds on hold Atrial fibrillation chronic apixaban rate controlled Peripheral vascular disease Diarrhea on and off alternating with constipation. Likely irritable bowel syndrome. Chronic issue. Needs GI follow-up DVT prophylaxis on chronic anticoagulation with apixaban which will be continued Status post permanent pacemaker implantation Refused ICD in the past Stroke in July 2022 status post TNK and mechanical thrombectomy of a left M1 occlusion Coronary artery disease status post stent placement Aortic aneurysm Code status do not resuscitate Hospitalist [facility] Advance Care Plan I have confirmed that the patient's Advanced Care Plan is present, code status is documented, or surrogate decision maker is listed in patient medical record.: Yes Medication Reconciliation I have utilized all available resources to obtain, update and review the patients current medications (includes all prescriptions, OTC, herbals, cannabis, and nutritional supplements).: Yes
--- NOTE | 2024-12-14 19:22 | PC.NURSE ---
BSR with Pearl completed; denied any other questions. patient remains alert and oriented with hypotension and no other complaints.
--- NOTE | 2024-12-14 21:03 | ADMGEN ---
This patient, Abena Giron, was admitted to IMU Room 213-01. Patient/family oriented to hospital policies and general routines including ID bracelet, bed and alarms, visiting hours, pain management, procedures, bathroom and other care routines, personal items, smoking policy, room service/diet, and visiting hours. Information on how to activate the Rapid Response Team has been discussed. Patient/Family are encouraged to report perceived risks to care and to ask questions if they do not understand what they are told or what they should do.
[2024-12-15] VITALS (9 sets, daily range): BP systolic 101–128; BP diastolic 40–92; PULSE 74–89; RESP 16–17; TEMP 36.4–37; O2SAT 97–100
[2024-12-15 03:59] LABS: Hematocrit 40.0 % (37.0-47.0); Hemoglobin 12.6 g/dL (12.0-15.0); Immature Granulocyte Percent A 0.2 % (0-0.5); Lymphocytes Absolute Auto 1.53 K/mm3 (0.9-3.2); Mean Corpuscular HGB Conc 31.5 g/dl (32-36); Mean Corpuscular Hemoglobin 32.3 pg (26-34); Mean Corpuscular Volume 102.6 fl (80-100); Nucleated Red Blood Cells Absolute Auto 0.000 K/mm3 (0.0-0.012); Nucleated Red Blood Cells Perc 0.0 % (0.0-0.2); Platelet Count Result 175 k/mm3 (150-375); Red Blood Count 3.90 M/mm3 (4.2-5.4); White Blood Count 5.4 K/mm3 (4.5-10.0)
[2024-12-15 04:36] LABS: Alanine Aminotransferase 10 U/L (6-35); Albumin Level 3.4 g/dL (3.5-5.1); Alkaline Phosphatase 40 U/L (38-126); Anion Gap 6 mmol/L (4-12); Aspartate Amino Transferase 21 U/L (14-36); Bilirubin,Total 0.7 mg/dL (0.2-1.3); Blood Urea Nitrogen 16 mg/dL (7-17); Calcium 8.4 mg/dL (8.4-10.2); Carbon Dioxide 24 mmol/L (22-30); Chloride 108 mmol/L (98-107); Estimated CRCL calculation 37 ml/min; Estimated Glomerular Filt Rate > 60; Glucose 76 mg/dL (65-110); Magnesium 2.1 mg/dL (1.6-2.3); Potassium 4.2 mmol/L (3.4-5.0); Sodium 138 mmol/L (137-145); Total Protein 5.9 g/dL (6.3-8.2)
[2024-12-15] MEDS: ACETAMINOPHEN 325 MG TABLET 650 MG PO (09:36)
--- NOTE | 2024-12-15 10:11 | PM.DS ---
DS: Admitting Diagnosis Discharge Date 12/15/24 Admitting Diagnosis Abdominal pain DS: Discharge Diagnosis Discharge Diagnosis (1) Hypotension: Code(s): I95.9 - Hypotension, unspecified Status: Acute (2) Abdominal pain: Code(s): R10.9 - Unspecified abdominal pain Status: Acute (3) Heart failure with reduced ejection fraction: Code(s): I50.20 - Unspecified systolic (congestive) heart failure Status: Acute (4) Pacemaker: Code(s): Z95.0 - Presence of cardiac pacemaker Status: Acute (5) Atrial fibrillation: Code(s): I48.91 - Unspecified atrial fibrillation Status: Acute (6) CAD (coronary artery disease): Code(s): I25.10 - Atherosclerotic heart disease of [place] coronary artery without angina pectoris Status: Acute (7) Aortic aneurysm: Code(s): I71.9 - Aortic aneurysm of unspecified site, without rupture Status: Acute (8) Aortic atherosclerosis: Code(s): I70.0 - Atherosclerosis of aorta Status: Acute (9) Peripheral vascular disease: Code(s): I73.9 - Peripheral vascular disease, unspecified Status: Acute (10) Chronic anticoagulation: Code(s): Z79.01 - jail (current) use of anticoagulants Status: Acute (11) IBS (irritable bowel syndrome): Code(s): K58.9 - Irritable bowel syndrome, unspecified Status: Acute (12) CVA (cerebral vascular accident): Code(s): I63.9 - Cerebral infarction, unspecified Status: Acute (13) Pulmonary nodule: Code(s): R91.1 - Solitary pulmonary nodule Status: Acute (14) Renal lesion: Code(s): N28.9 - Disorder of kidney and ureter, unspecified Status: Acute DS: Summary Hospital Course Reason for hospitalization: 84yo female with history of CAD, atrial fibrillation on chronic anticoagulation, status post permanent pacemaker implantation, CHF with reduced ejection fraction as low as 20% for which she has refused ICD, peripheral vascular disease, and stroke in July 2022 status post TNK and mechanical thrombectomy of a left M1 occlusion who presented to the emergency department for abdominal pain. Please see H&P for details. Hospital Course: Patient was normotensive on arrival then dropped to SBP in the 70's (BP did drop to a low of 57/47 but 8 minutes later, BP was 112/82 so felt to be measurement error). She received 1L bolus with normalization of blood pressure but again became hypotensive and received a 2nd bolus. Chest x-ray showed cardiomegaly with mild interstitial edema but not felt that she had acute CHF exacerbation. BCx collected and are pending. No complaints of fever or chills. No fevers during her hospitalization. Lactic acid was normal. Viral swab was negative. Urinalysis was concentrated but no signs of infection. CMP was normal except for BUN 21. Lipase normal. CBC was normal. Repeat lab work showed normal BUN and WBC remained normal. CT abdomen pelvis showed colitis versus under distention of the bowel. Small amount of nonspecific fat stranding and fluid in the abdomen and pelvis noted there is a 1.8 cm indeterminate left renal lesion. Small left-sided pleural effusion there is 4 mm pulmonary nodule in the right lower lobe. Hypotension felt related to medications. Her anti-HTN medications were held. No signs of infection evident on initial evaluation and no abdominal tenderness was noted so felt less likely infection. She reports blood pressure chronically borderline as well. She has been having diarrhea alternating with constipation. Also with abdominal pain about 30 minutes after eating. Noweight loss. Symptoms better after a BM. She used to by on soluble fiber. Symptoms appear more chronic and recommended she resume metamucil and follow-up with GI. She has been up walking to the bathroom. Orthostatic BP was normal (lying 113, standing 107). She denies lightheadedness with standing. She wont be alone per family. She overall did well and was able to be discharged home on 12/15/24. All questions answered. Encouraged her to do daily weights and check BP 2x/day. Status at Discharge Cognitive/behavioral status at discharge: stable Time Spent with Patient Time attestation: Total time spent providing and/or coordinating discharge services: 35 minutes Time spent: Greater than 30 minutes Exam Narrative: AF 98.6 104/58 78 16 100% ra Gen - NARD Chest - CTA bilaterally, nml RR CV - RRR S1/S2. Tele showing paced rhythm Abd - Soft, mild epigastric tenderness but not consistent with repeat palpation. +BS Ext - No pedal edema Neuro - Alert and appropriate Psych - Nml mood and affect Skin - Warm and dry DS: Data Data Completed and Pending Labs on day of discharge: Labs from last 24 hours 12/15/24 12/14/24 12/14/24 03:44 14:28 13:17 WBC 5.4 RBC 3.90 L Hgb 12.6 Hct 40.0 MCV 102.6 H MCH 32.3 MCHC 31.5 L RDW 14.9 H Plt Count 175 MPV 11.3 H Immature Gran % (Auto) 0.2 Neut % (Auto) 58.7 Lymph % (Auto) 28.2 [place] % (Auto) 9.8 H Eos % (Auto) 2.4 Baso % (Auto) 0.7 Lymph # (Auto) 1.53 [place] # (Auto) 0.5 Eos # (Auto) 0.1 Baso # (Auto) 0.0 Abs Immat Gran (auto) 0.01 Absolute Neuts (auto) 3.2 Absolute Nucleated RBC 0.000 Nucleated RBC % 0.0 Sodium 138 Potassium 4.2 Chloride 108 H Carbon Dioxide 24 Anion Gap 6 BUN 16 Creatinine 0.85 Estim Creat Clear Calc 37 Estimated GFR > 60 Glucose 76 Lactic Acid 1.9 Calcium 8.4 Magnesium 2.1 Total Bilirubin 0.7 AST 21 ALT 10 Alkaline Phosphatase 40 Total Protein 5.9 L Albumin 3.4 L Lipase Urine Color Yellow Urine Appearance Clear Urine pH 6.0 Ur Specific [place] > 1.045 H Urine Protein Trace Urine Glucose (UA) 3+ H Urine Ketones 1+ H Ur Blood (Man) 1+ H Urine Nitrate Negative Urine Bilirubin Negative Urine Urobilinogen 1.0 Leukocyte Esterase Rfl Negative Urine RBC 3-5 H Urine WBC 0-5 Ur Squamous Epith Cells None seen Urine Bacteria None seen Urine Casts 0-2 Influenza A (RT-PCR) Negative Influenza B (RT-PCR) Negative RSV (RT-PCR) Negative SARS-CoV-2 RNA (RT-PCR) Negative 12/14/24 11:27 WBC 9.5 RBC 4.54 Hgb 14.7 Hct 46.3 MCV 102.0 H MCH 32.4 MCHC 31.7 L RDW 14.5 Plt Count 206 MPV 11.7 H Immature Gran % (Auto) 0.2 Neut % (Auto) 76.1 H Lymph % (Auto) 14.8 L [place] % (Auto) 7.6 Eos % (Auto) 0.7 Baso % (Auto) 0.6 Lymph # (Auto) 1.41 [place] # (Auto) 0.7 H Eos # (Auto) 0.1 Baso # (Auto) 0.1 Abs Immat Gran (auto) 0.02 Absolute Neuts (auto) 7.2 H Absolute Nucleated RBC 0.000 Nucleated RBC % 0.0 Sodium 139 Potassium 4.1 Chloride 102 Carbon Dioxide 25 Anion Gap 12 BUN 21 H Creatinine 0.93 Estim Creat Clear Calc 34 Estimated GFR 57 L Glucose 83 Lactic Acid Calcium 9.2 Magnesium Total Bilirubin 1.0 AST 32 ALT 17 Alkaline Phosphatase 41 Total Protein 8.2 Albumin 4.7 Lipase 93 Urine Color Urine Appearance Urine pH Ur Specific [place] Urine Protein Urine Glucose (UA) Urine Ketones Ur Blood (Man) Urine Nitrate Urine Bilirubin Urine Urobilinogen Leukocyte Esterase Rfl Urine RBC Urine WBC Ur Squamous Epith Cells Urine Bacteria Urine Casts Influenza A (RT-PCR) Influenza B (RT-PCR) RSV (RT-PCR) SARS-CoV-2 RNA (RT-PCR) Discharge Plan Discharge Attending physician on discharge: Onofre Costello Discharging Clinician: Onofre Costello Anticipated Discharge Date/Time: 12/15/24 10:30 Patient Disposition: Home Activity: as tolerated Diet: heart healthy and high fiber Discharge Instructions: Check blood pressure 2 times a day. Record and bring into your doctor for review. Call your doctor if your blood pressure is greater than 180/110 or less than 100/50. Take precautions to avoid falls. Rise slowly from a lying or sitting position. Pause before standing or walking. Check daily morning weights after voiding. Call your doctor if you gain more than 3 lb in 2 days or 5 lb in 1 week. Contact your doctor or call 911 and come to the Emergency Room if you have worsening abdominal pain, fevers, lightheadedness with standing or other worrisome symptoms. Avoid NSAIDs (ibuprofen, naproxen, Aleve). Tylenol is safe to take. Follow-up with your primary care provider in 1-2 weeks. Please call for appointment. Please discuss with your doctor about follow-up imaging for the small left kidney and right lower lung nodules. Follow-up with GI doctor in 2-4 weeks. Please call for an appointment. Thank you for using [facility] for your health care needs. Patient Instructions: Antibiotic Form Patient Language: Kinyarwanda Stand Alone Forms: General Discharge Information Follow-up/Referrals: Jaleel Mcgovern MD [Primary Care Provider, Family Practice] - Call for Appointment Randy Oneil MD [Physician, Gastroenterology] - Call for Appointment Discharge Medications: Continued dapagliflozin propanediol [Farxiga] 10 mg Tablet 10 mg PO DAILY Zyrtec 10 mg capsule 10 mg PO DAILY PRN (Reason: allergy symptoms) Qty: 20 0RF terbinafine HCl 250 mg tablet 250 mg PO DAILY Qty: 84 0RF ondansetron 4 mg tablet,disintegrating 4 mg PO Q8H PRN (Reason: nausea and vomiting) Qty: 30 0RF Entresto 24-26 mg tablet 1 tablet PO BID acetaminophen [Acetaminophen Extra Strength] 500 mg tablet 1,000 mg PO Q6H PRN (Reason: pain) aspirin [Adult Low Dose Aspirin] 81 mg tablet,delayed release (DR/EC) 81 mg PO DAILY Qty: 90 1RF Patient Comments: Holding for 1 week prior fluticasone propionate [Flonase Allergy Relief] 50 mcg/actuation spray,suspension 1 spray intranasal BID PRN (Reason: nasal congestion) Qty: 16 1RF Rx Instructions: administer into each nostril sertraline 25 mg tablet 25 mg PO DAILY Qty: 90 1RF Eliquis 5 mg tablet 5 mg PO Q12H Qty: 180 1RF Held furosemide 20 mg tablet See Rx Instructions .ROUTE .COMPLEX Qty: 90 1RF Hold Instructions: HOLD - resume when okay with your doctor Dose Instruction: TAKE ONE (1) TABLET BY MOUTH EACH MORNING Rx Instructions: TAKE ONE (1) TABLET BY MOUTH EACH MORNING spironolactone 25 mg tablet 25 mg PO DAILY Qty: 90 0RF Hold Instructions: HOLD - resume when okay with your doctor Date of admission: 12/14/24 17:32 Primary Care Provider: Jaleel Mcgovern Admitting Provider: Ahsan Ramesh Attending physician on admission: Ahsan Ramesh Condition: Stable Hospitalist MIPS Heart Failure (Exclusion) Patient has history of Heart Transplant or Left Ventricular Assistive Device?: No IF YES, STOP HERE Heart Failure (Qualifier) Patient has current or prior documentation of LVEF less than or equal to 40%, or mod/servere depressed LVSF?: Yes IF NO, STOP HERE If Yes, Heart Failure (Qualifier) Patient was prescribed or already taking an Angiotensin-Converting Enzyme (KENJI) Inhibitor, or Antiotensin Receptor Vinay (ARB): Yes Patient was prescribed or already taking bisoprolol, carvedilol, or sustained release metoprolol succinate: No If Medications not prescribed/taking Reason patient not prescribed/taking bisoprolol, carvedilol, or sustained realease metoprolol succinate: Medical reasons: allergy, intolerance, contraindication or other
--- NOTE | 2024-12-15 14:12 | PC.NURSE ---
On 12/15/24, the student, Awa, provided care and completed [facility] documentation on this patient. I have reviewed the student's documentation and agree with the findings.
--- NOTE | 2024-12-22 07:53 | PC.NURSE ---
Blood cx shows no growth. Dr. Pravin scott.
== END 2024-12-15 12:31 | disposition home or self-care (01) | DRG 315 ==
LOC: ANHED 15:58 → ANHIMU 17:47
PROVIDERS: Emergency Medicine; Admitting Provider Internal Medicine; Emergency Provider Nurse Practitioner Family; PCP Family Medicine; Visit Provider Internal Medicine
DX: I95.9 Hypotension, unspecified (principal); I48.20 Chronic atrial fibrillation, unspecified; I50.22 Chronic systolic (congestive) heart failure; I69.351 Hemiplegia and hemiparesis following cerebral infarction affecting right dominant side; I73.9 Peripheral vascular disease, unspecified; I25.10 Atherosclerotic heart disease of native coronary artery without angina pectoris; I11.0 Hypertensive heart disease with heart failure; E78.5 Hyperlipidemia, unspecified; K58.9 Irritable bowel syndrome, unspecified; N28.9 Disorder of kidney and ureter, unspecified; F41.9 Anxiety disorder, unspecified; Z20.822 Contact with and (suspected) exposure to COVID-19; Z79.01 Long term (current) use of anticoagulants; Z95.0 Presence of cardiac pacemaker; Z95.5 Presence of coronary angioplasty implant and graft; Z87.891 Personal history of nicotine dependence
CPT/HCPCS: 36415; 71045; 74177; 80053; 81001; 83605; 83690; 83735; 85025; 87040; 87637; 96361; 96374; 99285; A9270; J7030; J7120; Q9967

== ENCOUNTER 2024-12-28 09:40 | Emergency (ER) | payer MEDICARE, SELFPAY ==
--- NOTE | ~2024-12-28 | XR_ITS ---
Examination: XR foot RT min 3V Clinical History: right foot pain, lateral aspect, fall Comparison: None Technique: 4 views right foot Findings/impression: 1. No fracture or dislocation identified right foot. 2. Bunion deformity. 3. Mild midfoot degenerative changes. 4. Mild degenerative changes digital DIP joints. Reviewed, dictated and finalized at location R.
[2024-12-28 09:46] VITALS: BP 78/40; PULSE 79; RESP 16; O2SAT 97
--- OUTSIDE RECORDS SUMMARY | 2024-12-28 10:15 | XMS_ITS | Encounter Summary ---
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
--- OUTSIDE RECORDS SUMMARY | 2024-12-28 10:15 | XMS_ITS | Encounter Summary ---
Author Organization [facility] Healthcare Address [address] [place] [address] Care Team Providers Care Hiv Cts Specialist Name Role Phone Reynaldo Flannery DO Unavailable [phone] Guanakito Holland MD Unavailable [phone] Jaleel Mcgovern MD Primary Care Provider [phone] Encounter Details Date Type Department Care Team (Late st Contact Info) Description 08/12/2022 Telephone [facility] Physical Medicine and Rehabilitation [address] [place] [address] Kimberly Gibbons, DESULFURIZER OPERATOR Social History Tobacco Use Types Packs/Day Years [...] Date Recorded PHQ-2 Total Score 0 08/12/2022 [facility] of Occupat [...] on file 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 Question Answer Date of Assessment Author Little interest or pleasure in doing things Not at all 08/12/2022 2:22 PM BENJAT Yissel Ayers , FUR DRESSING SUPERVISOR Feeling down, depressed, or hopeless Not at all 08/12/2022 2:22 PM CDT Yissel Ayers , FUR DRESSING SUPERVISOR Trouble falling or staying asleep, or sleeping too much Several days 08/12/2022 2:22 PM CDT Miles Ayers, FUR DRESSING SUPERVISOR Feeling tired or having little energy Several days 08/12/2022 2:22 PM CDT Yissel Ayers , FUR DRESSING SUPERVISOR Poor appetite or overeating Not at all 08/12/2022 2: 22 PM BENJAT Yissel Ayers, FUR DRESSING SUPERVISOR Feeling bad about yourself - or that you are a failure or have let yourself or your family down Not at all 08/12/2022 2:22 PM CDT Yissel Ayers , FUR DRESSING SUPERVISOR Trouble concentrating on things, such as reading the newspaper or watching television Not at all 08/12/2022 2:22 PM CDT Yissel Ayers , FUR DRESSING SUPERVISOR Moving or speaking so slowly that other people could have noticed? Or the opposite - being so fidgety or restless that you have been moving around a lot more than usual. Not at all 08/12/2022 2:22 PM CDT Yissel Ayers , FUR DRESSING SUPERVISOR Thoughts that you would be better off or hurting yourself in some way Not at all 08/12/2022 2:22 PM Yissel Doshi, FUR DRESSING SUPERVISOR Patient Health Questionnaire-9 Score 2 08/12/2022 2:22 PM CDT Yissel Ayers, FUR DRESSING SUPERVISOR documented as of this encounter Miscellaneous Notes * Pre-Admission Screening - Kimberly Gibbons SLP - 08/12/2022 9:44 AM CDT [facility] Physical Medicine and Rehabilitation Preadmission [...] level of care. Patient is currently at [facility] . The patient is being referred and [...] Payor Source: Primary: Medicare A&B Secondary:Policy number: [id number] Case discussed with Dr. Nena Oneal on [...] Use: Not on file Patient's Preferred Language: Montenegrin Cultural Requests During Hospitalization: none conveyed Acute [...] DAPT who presents after receiving TNK at [facility] as a thrombectomy page. Per the patient's family at bedside, the patient was having lunch with one of her daughters when her daughter noticed that she started leaning towards the right. She subsequently became mute and developed a left gaze preference. Her last known normal was 1305. She wastaken to [facility], there her NIHSS was reportedly a [address] physician[address]. Gomez evaluated the patient by telestroke and recommended a CTH + CTA head and neck. She had a hyperdense left MCA sign on CTH and a left M1 occlusion on CTA. She was a GO for TNK and received the drug at 1423.She was then transferred to [facility] for thrombectomy evaluation. On arrival her [...] DAPT who presents after receiving TNK at [facility] as a thrombectomy page. The patient is GO for MT, she will need repeat labs to ensure that the values are real. If they arethen she will need a workup for metabolic acidosis. Moreover, she has pulmonary edema on CT CAP that needs follow up. Dis[facility] Neuro Critical Care Admission H&P CC: Acute right sided weakness HPI: Ms Giron is a 82y/o female with PMH of CAD, TN, SSS s/p Biotronik pacemaker, Atrial fibrillation (previously [...] BP of 68/31. She was taken to [facility] for further evaluation as a Code [place]. [...] of TNK at 14:28 and transferred to [facility] ED for mechanical thrombectomy evaluation. Upon arrival to [facility] ED her vital signs were: HR [...] lead revision on 09/14/18 done at [facility]), non-morbid obesity (BMI 30), GENNY non compliant with CPAP, PAD and carotid artery stenosis who presented to [facility] on 08/03/22 with R si ded [...] their arrival. She was initially taken to [facility] to evaluation for stroke. Her BP's improved to 109/89 [address] Head showed a large hyperdense MCA without hemorrhage, then subsequent CTA Head/Neck showed complete occlusion of theM1 segment of the L MCA. There were also carotid stenoses in the proximal LICA (80%) and proximal SKYLAR (50%). Ms Giron was then transferred to [facility] for tPA and thrombectomy. Ms Giron had an TN in 2013 requiring JOI to mid LCx performed at [facility]. Subsequently shedeveloped atrial fibrillation and tachy-hailey [...] woman with past medical history of CAD, TN, SSS s/p Biotronikpacemaker, Atrial fibrillation (previously on [...] Work-up: - Monitor on telemetry Consults: SMART (Biochemistry Technologist, PT/OT, DESULFURIZER OPERATOR, Spiritual Care) #Hyperlipidemia LDL on admission was 68. Goal LDL for secondary stroke prevention is <70. She has previously refused anti-lipid medication reporting feeling unwell on medicaiton and with muscle pain without weakness. # CAD s/p TN with stent placement (2013) # HFrEF (LVEF 20%, was LVEF 40% in 2019) She follows with Dr. Hernandez [facility] Cardiology - last seen 07/18/22 [...] BID and taking intermittently, however her pharmacy ([facility]) indicates she does not fill this medication [...] in the field was 68/31, 90/45 at [place]. Initially responded to fluid boluses. Noted to [...] a 82y/o female with PMH of CAD, TN, SSS s/p Biotronik pacemaker, Atrial fibrillation (previously [...] BP of 68/31. She was taken to [facility] for further evaluation as a Code [place]. [...] of TNK at 14:28 and transferred to [facility] ED for mechanical thrombectomy evaluation. Upon arrival to [facility] ED her vital signs were: HR [...] woman with past medical history of CAD, TN, SSS s/p Biotronikpacemaker, Atrial fibrillation (previously on [...] differential for consideration per TOAST criteria include: [id number] embolism or cardioembolism. Cardioembolism is most likely [...] mg PO qHS (SPARCL trial). The current [place] Stroke [employer] guidelines recommend long-term treatment with [...] muscle pain without weakness. # CAD s/p TN with stent placement (2013) # HFrEF (LVEF 20%, was LVEF 40% in 2019) She follows with Dr. Hernandez [facility] Cardiology - last seen 07/18/22 [...] BID and taking intermittently, however her pharmacy ([facility]) indicates she does not fillthis medication and [...] admitted to acute: 08/03/22 Precautions/Restrictions: Aspiration, Falls [place] Suicide Severity Rating Scale: Allergies: Allergies Allergen [...] bed mobility SBA (08/12/2022 9:31 AM) Cognition/Communication/Swallowing: DESULFURIZER OPERATOR Communication: expressive aphasia (08/12/2022 9:31 AM) DESULFURIZER OPERATOR Swallowing: Mild Dysphagia - pureed/thin (08/12/2022 9:31 AM) Conditions requiring acute rehab and risk for complications: Gait dysfunction - risk for falls and further injury, fracture Uncontrolled Hypertension - risk for stroke, stroke extension, TN Decreased mobility - Risk for Fall, skin [...] by a provider, Intense PT/OT/SP, Access to Broadcast Technician physicians, Supervised feeding groups, Frequent Neuroassessment, Bowel [...] the intensive Inpatient rehabilitation program offered at [facility] . documented in this encounter Plan of Treatment Not on file documented as of this encounter Visit Diagnoses Not on filedocumented in this encounter Care Teams Hiv Cts Specialist Relationship Specialty Start Date End Date Jaleel Mcgovern MD PCP - General Family Practice 07/18/22 Reynaldo Flannery DO Consulting Physician Cardiology 09/26/17 Guanakito Holland MD Consulting Physician Cardiovascular Disease 07/29/18 documented as of this encounter
--- OUTSIDE RECORDS SUMMARY | 2024-12-28 10:15 | XMS_ITS | Patient Health Record ---
Author Organization [facility] Address [address] [place] [address] Care Team Providers Care Government Affairs Manager Name Role Phone VIMAL RAY Unavailable [phone] Reason For Referral No Information Plan Of Treatment No Information Insurance Providers Payer Name Payer Address Payer Phone Subscriber Number Group Number Insured Name Patient Relationship to Insured Coverage Start Date Coverage End Date [place] [address] [address] [place], [place] [id number] Mack Abena Self - patient is the insured 6 [place]ARE [place] [address] [place], [place] [id number] Mack Abena Self - patient is the insured [address] [place] [address] [address] [place] [address] [id number] Mack Abena Self - patient is the insured 6
--- OUTSIDE RECORDS SUMMARY | 2024-12-28 10:15 | XMS_ITS | Encounter Summary ---
Author Organization [facility] Healthcare Address [address] [place] [address] Care Team Providers Care Regional Wildlife Agent Name Role Phone Reynaldo Flannery DO Unavailable [phone] Guanakito Holland MD Unavailable [phone] Jaleel Mcgovern MD Primary Care Provider [phone] Encounter Details Date Type Department Care Team (Late st Contact Info) Description 05/21/2024 Orders Only [facility] [place] Health Information Management [address] [place] [address] Scanning, Provider Social History Tobacco Use [...] or relatives? 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
--- OUTSIDE RECORDS SUMMARY | 2024-12-28 10:15 | XMS_ITS | Clinical Summary ---
Author Organization [facility] Address [address] [place] [address] Care Team Providers Care Mcat Tutor Name Role Phone Reynaldo Flannery DO Unavailable [phone] Guanakito Holland MD Unavailable [phone] Jaleel Mcgovern MD Primary Care Provider [phone] Allergies Active Allergy Reactions Criticality Noted Date [...] 02/13/20 25 Active spironolactone (ALDACTONE) 25 mg tabletIndication s:hypertension Take 0.5 tablets (12.5 mg total) by mouth daily 45 tablet 3 02/13/20 25 Active Additional Information Patient not taking.Reported on 12/24/2024 fluticasone propionate (FLONASE) 50 mcg/actuation nasal sprayIndications [...] 180 tablet 3 4 02/27/20 25 Active sacubitriL-valsa rtan (ENTRESTO) 24-26 mg tabletIndication s:chronic heart failure Take 1 tablet by mouth 2 (two) times a day 180 tablet 3 4 Active dapagliflozin propanediol (FARXIGA) 10 mg tabletIndication s:Heart Failure Take 1 tablet (10 mg total) by mouth daily 90 tablet 3 03/14/05/31/19 26 Active sertraline (ZOLOFT) 25 mg tablet Take 1 tablet (25 mg total) by mouth daily Active cetirizine (ZyrTEC) 10 mg tablet Take 1 tablet (10 mg total) by mouth daily Active terbinafine (LamiSIL) 250 mg tablet Take 1 tablet (250 mg total) by mouth daily Active Active [...] is to continue close follow-up with local ticket writer and therefore would like to discuss with [...] needed. Assessment & Plan (03/12/2017 2:39 PM SENIOR PAYROLL MANAGER): Patient has Xanax for p.r.n. use. She is somewhat afraid to use this medication. She notes a positive response when she needs it. She states she is having panic attacks once to twice a month at [place]. She has been logging these since December. She states her anxiety/panic began after her . She has not been in for any formal counseling since his passing. [facility]. We discussed Senior renewal. She declines at the present time. She would like to continue to monitor her panic attacks and was instructed to use Xanax as previously prescribed on an as needed basis. Coronary artery disease invo lving lower [place] coronary artery of [place] heart 12/25/2016 Overview (04/19/2019): Status post PCI in June 2013 (RL). Normal Cardiolite in August 2014. Assessment & Plan (08/29/2022 9:25 PM CDT): Denies any chest pain or anginal equivalent. Recent drop in her LVEF to 20% from 40% with unclear etiology. Continue aspirin, metoprolol and Crestor. Would like to discuss with her local ticket writer about additional ischemic workup as she plans [...] given Assessment & Plan (03/12/2017 2:37 PM SENIOR PAYROLL MANAGER): Blood pressure is slightly elevated during office [...] is less than 70. Will discuss local ticket writer about statin therapy and possible PCSK9 inhibitor. [...] 06/24/2017 Assessment & Plan (03/12/2017 2:39 PM SENIOR PAYROLL MANAGER): Influenza A negative influenza B negative. Sore throat 03/12/2017 06/24/2017 Assessment & Plan (03/12/2017 2:39 PM SENIOR PAYROLL MANAGER): Rapid strep negative. Viral URI with cough 03/12/2017 018 Assessment & Plan (03/12/2017 2:40 PM SENIOR PAYROLL MANAGER): Humidification, fluids, and rest were recommended. Patient [...] 11:05 AM CDT): Routinely follows-up with at [facility]. NSR today in office. CntDarvin Serna for anticoagulation Assessment & Plan (03/12/2017 2:37 PM SENIOR PAYROLL MANAGER): Patient will continue routine follow-up with Dr. Pennie pierre and local ticket writer as recommended. She reports compliance with her [...] Encounters Date Type Department Care Team Description 12/24/2024 1:00 PM CDT Office Visit [facility] Cardiology at [address] [place] [address] Mannie Hernandez MD Coronary artery disease involving lower [place] coronary artery of [place] heart without angina pectoris (Primary Dx); History of coronary artery stent placement; Cardiac pacemaker in situ; HFrEF (heart failure with reduced ejection fraction); Permanent atrial fibrillation (HCC) 12/23/2024 Telephone [facility]iology [address] [place] [address] Lizbet Miller MA Medical Records Requested 11/24/2024 11:00 AM CDT Ancillary Procedure [facility] [address] [place] [address] Paroxysmal atrial fibrillation (HCC); Sick sinus syndrome (HCC); Cardiac pacemaker in situ 11/23/2024 Orders Only [facility] [address] [facility] [address] [place] [id number] Mannie Hernandez MD Permanent atrial fibrillation (HCC) (Primary Dx); Cardiac pacemaker in situ; Sick sinus syndrome (HCC) 11/02/2024 10:30 AM CDT Ancillary Procedure [facility] [address] [facility] [address] Cardiac pacemaker in situ [Z95.0] (Primary [...] failure) (HCC) Atrial fibrillation (HCC) Stroke (HCC) Heart disease Family History Medical History Relation Name Comments [...] o f : Angina Diabetes Sister 1 [place] Heart attack Sister 1 [place] Heart disease Sister 1 [place] Other Sister 3 DM, CAD; Other Sister 4 Valve Replaceme nt; Relation Name Status Comments Brother 1 68 Brother 2 79 Child Daughter Chelle Jara Father Derek (Age 79) Maternal Grandmother Grandma Mother (Age 93) Sister 1 [place] Alive Sister 2 Alive Sister 3 Sister 4 Social History Tobacco Use Types Packs/Day Years Used Date Smoking Tobacco: Former Cigarettes 0.5 5 Q uit: 1975 Smokeless Tobacco: Never Tobacco [...] file Legal Sex Female 11:18 AM SENIOR PAYROLL MANAGER Gender Identity Female 10/09/2022 9:08 AM [...] Sign Reading Time Taken Comments Blood Pressure 90/62 12/24/2024 1:07 PM CDT Pulse 79 07/26/2024 11:24 AM CDT Temperature 36.4 C (97.6 F) 10/24/2022 11:50 AM CDT Respiratory Rate 18 10/24/2022 11:50 AM CDT Oxygen Saturation 97% 07/26/2024 11:24 AM CDT Inhaled Oxygen Concentration - - Weight 67.3 kg (148 lb 4.8 oz) 12/24/2024 1:07 P M CDT Height 154.9 cm (5' 1) 12/24/2024 1:07 PM CDT Body Mass Index 28.02 12/24/2024 1:07 PM CDT Plan of Treatment Health Maintenance Due Date Last Done Comments DTaP/Tdap/Td Vaccine (1 - Tdap) 1951 Hepatitis B Screening 1958 Pneumococcal vaccine 65+ (1 of 1 - PCV) 1990 Zoster Vaccine (1 of 2) 1990 Osteoporosis Screening-Bone Density Scan 11/14/2016 11/14/2014, 11/06/2012 Well Visit 65+ 01/30/2021 01/31/2020, 10/05/2018, 06/24/2017 Breast Cancer Screening-Mammogram 04/06/2021 021, 11/06/2012 [...] 05/25/2019, 01/06/2017 Medical Devices Implanted Type Area Gang Drill Press Operator Device Identifier Shelf Expiration Date Model / Serial / Lot [employer] [id number] Endocardial Pacing Lead Promri Solia Jt 45 - [id number] - [id number] Implanted:Qty: 1 on 07/29/2018 by Guanakito Holland MD at [facility] Lead [employer] 12/22/2019 [id number] / [id number] / [employer] [id number] Endocardial Pacing Lead Promri Solia T 53 - [id number] - [id number] Implanted:Qty: 1 on 07/29/2018 by Guanakito Holland MD at [facility] Lead [employer] 12/22/2019 [id number] / [id number] / [employer] [id number] Solia S 45cm Bipolar Active Fixation Lead Pacing Steroid Eluting - [id number] - [id number] Implanted:Qty: 1 on 09/14/2018 by Reynaldo Flannery DO at [facility] Lead [employer] [id number] 05/21/2020 [id number] / [id number] / [id number] [employer] [id number] Edora Promri 40g46v4.5mm 1 Chamber Rate Adaptive Unipolar Bipolar - [id number] - [id number] Implanted:Qty: 1 on 07/29/2018 by Guanakito Holland MD at [facility] Pacemaker [employer] 11/22/2019 [id number] / [id number] / Medtronic Cardiac Rhythm Mgmt [id number] Tyrx 2.7x2.5in Medium Envelope Absorbable Polyarylate Minocycline - [id number] Implanted:Qty: 1 on 09/14/2018 by Reynaldo Flannery DO at [facility] [employer] Inc 10/21/2018 [id number] / / [id number] Chinchilla Vascular Perclose 6fr Vascular Closure 83491-56 - [id number] Implanted:Qty: 1 on 08/03/2022 at [facility] [employer] 03/23/2024 [id number] / [id number] Procedures Procedure Name Priority Date/Time Associated Diagnosis [...] Read Routine (OP Routine) 04/06/2020 1:21 PM SENIOR PAYROLL MANAGER Visit for screening mammogram Essential hypertension Mixed [...] 3.0 years 7 months remaining to LEANA. VULNERABILITY RESEARCHER-93 %. Presenting rhythm- Vpaced. Underlying rhythm-Vpaced with 2 escape beats noted. Consider pacemaker dependent. No Ventricular arrhythmias detected. Medication: Eliquis, ASA 81 mg, Entresto. No programming changes made to device settings. See scanned report. [employer] remote f/u 03/01/2025. Office device f/u 01/18/2026. Merry Cavanaugh RN Mannie Hernandez MD CV [...] pacing and sensing thresholds. Presenting rhythm: Vpaced. VULNERABILITY RESEARCHER-93 %. No Ventricular arrhythmias detected. Medication: Eliquis, Entresto. Office pacemaker f/u in 3-6 months. Bi[employer] remote f/u 02/01/2025. Merry Cavanaugh, BRAYAN Mannie Hernandez MD [facility] PROC EDURES Final Result * Screening Mammogram Bilateral W Oscar (04/06/2020 1:21 PM SENIOR PAYROLL MANAGER) Anatomical Region Laterality Modality Breast Bilateral Mammography 04/06/2020 2:09 PM SENIOR PAYROLL MANAGER Impressions 04/06/2020 3:13 PM SENIOR PAYROLL MANAGER There is no mammographic evidence of malignancy. A 1 year screening mammogram is recommended. BI-RADS: 2 - Benign. The patient will be entered into a reminder system with a target due date of 1 year for her next mammogram. Electronically signed by: MD Gordon Lee 04/06/2020 3:13 PM SENIOR PAYROLL MANAGER EXAMINATION: SCREENING MAMMOGRAM BILATERAL W OSCAR ORDERING [...] Recently Relevant to Health Maintenance Insurance MEDICARE [facility] MEDICARE [facility] BLUE CROSS MEDICARE SUPPLEMENT MEDICARE BLUE CROSS MEDICARE SUPPLEMENT MEDICARE [facility] Advance Directives For more information, please contact: [phone] * LIMITED - No CPR (Latest Code [...] 11:36 AM 10/19/2019 7:30 PM Care Teams Mcat Tutor Relationship Specialty Start Date End Date Jaleel Mcgovern MD PCP - General Family Practice 07/18/22 Reynaldo Flannery DO Consulting Physician Cardiology 09/26/17 Guanakito Holland MD Consulting Physician Cardiovascular Disease 07/29/18
--- NOTE | 2024-12-28 10:36 | ED.GENADULT ---
HPI - General Adult General Chief complaint: Extremity Injury, Lower Stated complaint: right foot injury Source: patient and family Mode of arrival: ambulatory Limitations: no limitations History of Present Illness HPI narrative: Patient presents for evaluation of right foot pain. Symptom onset last night. She is attempting to get out of bed when her foot slipped on a stepstool. She bumped her head and landed on her buttocks. No LOC. She is on eliquis for a fib. Denies headache, confusion or vomiting. She states she is having difficulty bearing weight on her right lower extremity due to right foot pain. She rates her pain 6/10 in severity. She took Tylenol for symptoms. She denies any hip pain or other musculoskeletal pain. She ambulates with a walker. She has family that comes and stays with her all of the hours that she is awake for the day. Related Data Home Medications ?Medication ?Instructions ?Recorded ?Confirmed ?Last Taken ?Type dapagliflozin propanediol 10 mg 10 mg PO DAILY 01/15/24 12/14/24 12/14/24 History tablet (Farxiga) sacubitril 24 mg-valsartan 26 mg 1 tablet PO BID 06/28/24 12/14/24 12/14/24 History tablet (Entresto) albuterol sulfate 90 mcg/actuation 1 puff inhalation Q4H PRN 12/28/24 Unknown History aerosol inhaler (Ventolin HFA) cetirizine 10 mg capsule (Zyrtec) 10 mg PO DAILY PRN 12/28/24 Unknown History cholecalciferol (vitamin D3) 50 50 mcg PO DAILY 12/28/24 Unknown History mcg (2,000 unit) tablet coenzyme Q10 30 mg capsule 30 mg PO TID 12/28/24 Unknown History cyanocobalamin (vitamin B-12) 1,000 mcg PO DAILY 12/28/24 Unknown History 1,000 mcg tablet,extended release fluticasone propionate 50 1 spray intranasal DAILY PRN 12/28/24 Unknown History mcg/actuation nasal spray,suspension Allergies Allergy/AdvReac Type Severity Reaction Status Date / Time codeine Allergy Intermediate rash and Verified 12/28/24 09:54 hives morphine Allergy Intermediate rash and Verified 12/28/24 09:54 hallucination Penicillins Allergy Intermediate rash and Verified 12/28/24 09:54 hives prednisone Allergy Unknown Unknown Verified 12/28/24 09:54 amiodarone AdvReac Intermediate Abdominal Verified 12/28/24 09:54 Pain [id number] Reductase AdvReac Intermediate pain Verified 12/28/24 09:54 Inhibitor Review of Systems Review of Systems: CONSTITUTIONAL: Denies fever, chills, or sweats. EYES: Denies visual changes, redness, or discharge. ENT: Denies rhinorrhea, congestion, sore throat, or otalgia. CARDIOVASCULAR: Denies chest pain, palpitations, or edema. RESPIRATORY: Denies cough or dyspnea. GASTROINTESTINAL: Denies abdominal pain, nausea, vomiting, or diarrhea. GENITOURINARY: Denies dysuria or hematuria. SKIN: Denies rash or itching. MUSCULOSKELETAL: Reports right foot pain. NEUROLOGIC: Denies headache, numbness, dizziness, or weakness. PSYCHIATRIC: Denies anxiety or depression. [facility] Past Medical History Medical History Peripheral vascular disease Hyperlipidemia Cerebrovascular accident (07/2022) status post TNK mechanical thrombectomy residual right-sided weakness Chronic anticoagulation Atrial fibrillation h/o Coronary artery disease Heart failure with reduced ejection fraction Aortic aneurysm Hypertension Anxiety Surgical History Surgical History History of permanent cardiac pacemaker placement History of coronary artery stent placement History of ERCP History of cholecystectomy Family History Family History Sibling Cancer Diabetes mellitus Heart disease Social History Social History Social History: Surrogate medical decision maker: ?All of her children? Code status: Do not resuscitate. Smoking status: Never smoker Additional smoking assessment comments: quit in 1974 Alcohol intake: never Substance use: never Substance use type: does not use Do You Feel Safe in your Home?: Yes Lack of Transportation: No Lack of Food: Never True Current Housing: I Have Housing Concerned About Future Housing: No Difficulty Paying Gas/Electric Bills: No Difficulty Paying for Meds: No Currently Unemployed: No Education: High School Diploma/GED Difficulty w/ Childcare or Family Care: No Living arrangements: alone Additional living arrangements comments: She lives alone. She has 4 daughters and 2 sons. Occupation/Education: retired Additional occupation/education comments: Retired, previously worked for [employer]. Spiritual care concerns: No Agree to blood products: Yes Exam Narrative: GENERAL: Well-appearing, well-nourished, and in no acute distress. HEAD: Normocephalic, atraumatic. EYES: PERRLA and EOMI. ENT: Nares clear, no rhinorrhea or epistaxis. Mucous membranes moist. Oropharynx without tonsillar hypertrophy exudate or other lesions. Bilateral TMs pearly melchor nonbulging NECK: Supple. No adenopathy or masses. No carotid bruits or JVD CHEST: Clear to auscultation. No respiratory distress. No wheezes rales or rhonchi HEART: Regular rate and rhythm. No murmur heard. Normal peripheral pulses. ABDOMEN: Soft, nontender, nondistended, normal active bowel sounds. EXTREMITIES: Able to dorsi and plantarflex the right foot. There is tenderness along the lateral aspect of the right foot overlying the 4th and 5th metatarsals. No obvious swelling or deformity. SKIN: Warm, dry, no rash. NEURO: No focal deficits. Alert and oriented x3. PSYCH: Normal mood and affect. Course Course Emergency Course: This is an 84-year-old female who presented for evaluation of right foot pain. X-ray negative for fracture. Exam consistent with contusion. Provided with postop shoe. She has a walker at home. She has 2 daughters here in her company today who advise family will be with her at home. I recommended she go to the ER for CT head. She declined. She is alert and oriented x 3 incompetent to make her own decisions. She does not have a headache, confusion and has not experienced any vomiting. I did advise in the event that she has headache, confusion, or vomiting, she should go to the emergency department. She will take Tylenol for pain at home. She should follow up with her primary care provider in the next few days. Pt in agreement with plan of care. Level of Care: Express Care Visit Vital Signs Vital signs: Vital Signs Pulse Rate 79 12/28/24 09:46 Respiratory Rate 16 12/28/24 09:46 Blood Pressure 78/40 L 12/28/24 09:46 Pulse Oximetry 97 12/28/24 09:46 Oxygen Delivery Room Air 12/28/24 09:46 Pulse Rate 79 12/28/24 09:46 Respiratory Rate 16 12/28/24 09:46 Blood Pressure 78/40 L 12/28/24 09:46 Pulse Oximetry 97 12/28/24 09:46 Oxygen Delivery Room Air 12/28/24 09:46 Medical Decision Making Vital Signs Vital Signs: Vital Signs Pulse Rate 79 12/28/24 09:46 Respiratory Rate 16 12/28/24 09:46 Blood Pressure 78/40 L 12/28/24 09:46 Pulse Oximetry 97 12/28/24 09:46 Oxygen Delivery Room Air 12/28/24 09:46 Pulse Rate 79 12/28/24 09:46 Respiratory Rate 16 12/28/24 09:46 Blood Pressure 78/40 L 12/28/24 09:46 Pulse Oximetry 97 12/28/24 09:46 Oxygen Delivery Room Air 12/28/24 09:46 Imaging Data Radiologist's impression: Examination: XR foot RT min 3V Clinical History: right foot pain, lateral aspect, fall Comparison: None Technique: 4 views right foot Findings/impression: 1. No fracture or dislocation identified right foot. 2. Bunion deformity. 3. Mild midfoot degenerative changes. 4. Mild degenerative changes digital DIP joints. Discharge Plan Discharge Clinical Impression: Contusion of foot, right Patient Disposition: Home Condition: Stable Instructions: Antibiotic Form, Contusion in Adults (ED) Additional Instructions: IF YOU DEVELOP A HEADACHE, CONFUSION OR VOMITING, PLEASE GO TO THE ER PLEASE USE YOUR WALKER TO AMBULATE AND ALLOW YOUR FAMILY TO ASSIST YOU WITH AMBULATION Patient Language: Finnish Prescriptions: No Action dapagliflozin propanediol [Farxiga] 10 mg Tablet 10 mg PO DAILY cyanocobalamin (vitamin B-12) 1,000 mcg tablet extended release 1,000 mcg PO DAILY albuterol sulfate [Ventolin HFA] 90 mcg/actuation HFA aerosol inhaler 1 puff inhalation Q4H PRN fluticasone propionate 50 mcg/actuation spray,suspension 1 spray intranasal DAILY PRN Rx Instructions: administer into each nostril coenzyme Q10 30 mg capsule 30 mg PO TID cholecalciferol (vitamin D3) 50 mcg (2,000 unit) tablet 50 mcg PO DAILY Zyrtec 10 mg capsule 10 mg PO DAILY PRN terbinafine HCl 250 mg tablet 250 mg PO DAILY Qty: 84 0RF Entresto 24-26 mg tablet 1 tablet PO BID aspirin [Adult Low Dose Aspirin] 81 mg tablet,delayed release (DR/EC) 81 mg PO DAILY Qty: 90 1RF Patient Comments: Holding for 1 week prior sertraline 25 mg tablet 25 mg PO DAILY Qty: 90 1RF Eliquis 5 mg tablet 5 mg PO Q12H Qty: 180 1RF Follow-up/Referrals: Jaleel Mcgovern MD [Primary Care Provider, [facility]] Time of Disposition: 10:36
== END 2024-12-28 10:39 | disposition home or self-care (01) ==
PROVIDERS: Emergency Provider Nurse Practitioner; PCP Family Medicine
DX: S90.31XA Contusion of right foot, initial encounter (principal); E78.5 Hyperlipidemia, unspecified; I11.0 Hypertensive heart disease with heart failure; I50.9 Heart failure, unspecified; I25.10 Atherosclerotic heart disease of native coronary artery without angina pectoris; Z79.899 Other long term (current) drug therapy; Z86.73 Personal history of transient ischemic attack (TIA), and cerebral infarction without residual deficits; Z79.01 Long term (current) use of anticoagulants; W06.XXXA Fall from bed, initial encounter
CPT/HCPCS: 73630; 99213; G0463

== ENCOUNTER 2025-01-05 13:44 | Emergency (ER) | payer MEDICARE, SELFPAY ==
--- NOTE | ~2025-01-05 | XR_ITS ---
Examination: XR chest 2V Clinical History: PRODUCTIVE COUGH Comparison: 12/14/2024 Technique: PA and Lateral Findings: Left pacemaker. Cardiomegaly. Chronic blunting left CP angle. No focal airspace disease or edema. No acute bony abnormality. IMPRESSION: 1. Chronic small left pleural effusion. Reviewed, dictated and finalized at location R.
[2025-01-05 13:53] VITALS: BP 82/60; PULSE 77; RESP 24; TEMP 36.4; O2SAT 100
[2025-01-05 14:12] LABS: EDSTREPNEGPOS1 Positive (Negative)
--- NOTE | 2025-01-05 14:16 | PC.NURSE ---
pt states BP is baseline low, systolic 70-80 is normal for her per pt. pt states more weakness, denies dizziness, some shortness of breath.
--- NOTE | 2025-01-05 14:19 | ED_ITS ---
HPI - URI/Sore Throat General Chief Complaint: Upper Respiratory Infection Stated Complaint: Cough/Sore Throat Time Seen by Provider: 01/05/25 14:00 Source: patient, family, RN notes reviewed and old records reviewed Mode of arrival: ambulatory Limitations: no limitations History of Present Illness HPI Narrative: 84 year old female accompanied by daughter with complaints of sore throat and cough with expectoration of green yellow sputum for the past 5 days. Daughter reports that patient does have some shortness of breath with minimal exertion and cough was bad last evening that mother didn't rest well. Patient reports that she has taken Robitussin and also used her Flonase and taken allergy medication. Patient has history of CHF and has had chronic pleural effusion and correctional program officer had increased her Lasix for several days and today received message to cut off Lasix and use only if increase in weight noted. Patient blood pressure is low in clinic highest obtained was 84/52. Patient states that her pressure has been running lower due to the diuretics, no peripheral edema noted. Patient reports that here weight this morning was 138#. Patient reports that she is on fluid restrictions also of no more that 2 bottles of fluid daily. MD elicited complaint: cough and other (short of breath) Pertinent past history: other (CHF, chronic left pleural effusion) Onset (ago): day(s) (5) Severity: moderate Description of mucous: yellow and green Able to tolerate fluids by mouth: Yes Treatments prior to arrival: other (Robitussin, Flonase, allergy med) Related Data Home Medications ?Medication ?Instructions ?Recorded ?Confirmed ?Last Taken ?Type dapagliflozin propanediol 10 mg 10 mg PO DAILY 4 12/14/24 12/14/24 History tablet (Farxiga) sacubitril 24 mg-valsartan 26 mg 1 tablet PO BID 06/2812/14/24 12/14/24 History tablet (Entresto) albuterol sulfate 90 mcg/actuation 1 puff inhalation Q 4H PRN 12/28/24 Unknown History aerosol inhaler (Ventolin HFA) cetirizine 10 mg capsule (Zyrtec) 10 mg PO DAILY PRN 1 Unknown History cholecalciferol (vitamin D3) 50 50 mcg PO DAILY Unknown History mcg (2,000 unit) tablet coenzyme Q10 30 mg capsule 30 mg PO TID 12/28/24 Unkn own History cyanocobalamin (vitamin B-12) 1,000 mcg PO DAILY 12/28 Unknown History 1,000 mcg tablet,extended release fluticasone propionate 50 1 spray intranasal DAILY PRN 12/28/24 Unknown History mcg/actuation nasal spray,suspension Allergies Allergy/AdvReac Type Severity Reaction Status Date / Time codeine Allergy Intermediate rash and Verified 01/05/25 14:02 hives morphine Allergy Intermediate rash and Verified 01/05/25 14:02 hallucination Penicillins Allergy Intermediate rash and Verified 01/05/25 14:02 hives prednisone Allergy Unknown Unknown Verified 01/05/25 14:02 amiodarone AdvReac Intermediate Abdominal Verified 01/05/25 14:02 Pain Qykjgup-CHW-PdV Reductase AdvReac Intermediate pain Verified 01/05/25 14:02 Inhibitor Review of Systems Review of Systems: CONSTITUTIONAL: Reports malaise, chills, sweats, or fever. EYES: Denies visual changes, redness, or discharge. ENT: Reports rhinorrhea, congestion, no sinus pain, no otalgia and positive for sore throat. CARDIOVASCULAR: Denies acute chest pain, palpitations, or edema. RESPIRATORY: Reports productive cough.? Reports some dyspnea with minimal exertion. states that chest and back hurt from coughing GASTROINTESTINAL: Denies abdominal pain, nausea, vomiting, diarrhea SKIN: Denies rash or itching. MUSCULOSKELETAL: reports myalgia. NEUROLOGIC: Denies headache. All systems reviewed & are unremarkable except as noted in HPI and below PMFSH Past Medical History Medical History Peripheral vascular disease Hyperlipidemia Cerebrovascular accident (07/2022) status post TNK mechanical thrombectomy residual right-sided weakness Chronic anticoagulation Atrial fibrillation h/o Coronary artery disease Heart failure with reduced ejection fraction Aortic aneurysm Hypertension Anxiety Surgical History Surgical History History of permanent cardiac pacemaker placement History of coronary artery stent placement History of ERCP History of cholecystectomy Family History Family History Sibling Cancer Diabetes mellitus Heart disease Social History Social History Social History: Surrogate medical decision maker: ?All of her children? Code status: Do not resuscitate. Smoking status: Never smoker Additional smoking assessment comments: quit in 1974 Alcohol intake: never Substance use: never Substance use type: does not use Do You Feel Safe in your Home?: Yes Lack of Transportation: No Lack of Food: Never True Current Housing: I Have Housing Concerned About Future Housing: No Difficulty Paying Gas/Electric Bills: No Difficulty Paying for Meds: No Currently Unemployed: No Education: High School Diploma/GED Difficulty w/ Childcare or Family Care: No Living arrangements: alone Additional living arrangements comments: She lives alone. She has 4 daughters and 2 sons. Occupation/Education: retired Additional occupation/education comments: Retired, previously worked for [employer]. Spiritual care concerns: No Agree to blood products: Yes Comments At time of signature, agree with nursing past medical, surgical, social and family history. There is no relevant family history pertinent to the presenting complaint Exam Narrative: GENERAL: chronic ill -appearing, well-nourished, and in no acute distress. HEAD: Normocephalic EYES: PERRLA, conjunctivae clear ENT: Nares clear, turbinates edematous and erythematous, yellow tinged discharge. Mucous membranes moist. TM pearly melchor with dull light reflex bilaterally; no tragal tenderness. Oropharynx erythematous without lesions. Tonsils red enlarged and without exudate, no drooling, no hoarseness, no trismus, uvula midline. NECK: Supple. No lymphadenopathy CHEST: crackles to left base on auscultation, breath sounds equal. No wheezing, rhonchi,+ rales, no stridor. No acute respiratory distress, speaks in full sentences. cough noted with some dyspnea with exertion.SAO2 100% on room air mild tachypnea HEART:sl Irregular rate and rhythm. No murmur heard. SKIN: Warm, dry, no rash. NEURO: Alert and oriented x3. PSYCH: Normal mood and affect, initially grumpy Course Course Emergency Course: Patient is aware of diagnosis, understands and agrees to treatment plan.? Anticipatory guidance given.? Patient agrees to follow-up as directed and is aware of reasons to seek care at the emergency department. Portions of this record may have been created with voice recognition software Level of Care: [facility] Visit Vital Signs Vital signs: Vital Signs Temperature 36.4 C L 01/05/25 13:53 Pulse Rate 77 01/05/25 13:53 Respiratory Rate 24 H 01/05/25 13:53 Blood Pressure 82/60 L 01/05/25 13:53 Pulse Oximetry 100 01/05/25 13:53 Oxygen Delivery Room Air 01/05/25 13:53 Temperature 36.4 C L 01/05/25 13:53 Pulse Rate 77 01/05/25 13:53 Respiratory Rate 24 H 01/05/25 13:53 Blood Pressure 82/60 L 01/05/25 13:53 Pulse Oximetry 100 01/05/25 13:53 Oxygen Delivery Room Air 01/05/25 13:53 Reviewed MDM - URI/Sore Throat MDM Narrative Medical decision making narrative: Differential diagnosis considered: Ugalde virus, strep pharyngitis, allergic rhinitis, upper respiratory tract infection, sinusitis, rhinosinusitis, nasopharyngitis. viral pharyngitis, otitis media, otitis externa, pneumonia, bronchitis, viral cough syndrome, viral syndrome, and influenza.? Exam findings show no acute concerns or changes; patient is non-toxic appearing and is in no distress.? Patient is appropriate for outpatient treatment and follow-up. Differential Diagnosis Differential diagnosis: Likely other (strep pharyngitis, pleural effusion cough, CHF) Medical Records Attestation: I reviewed the patient's medical records. Lab Data Attestation: I reviewed the patient's lab results. Lab results narrative: strep screen positive, COVID antigen negative, Influenza A&B negative Labs: Lab Results 01/05/25 01/05/25 Range/Units 14:10 14:25 POC Influenza A Ag Negative (Negative) POC Influenza B Ag Negative (Negative) POC SARS CoV-2 Ag Negative (Negative) POC Grp A Strep Screen Positive (Negative) Critical Care Time Critical Care Time Critical Care Time: No Discharge Plan Discharge Clinical Impression: Acute streptococcal pharyngitis, Chronic pleural effusion, Acute cough Patient Disposition: Home Condition: Stable Instructions: Antibiotic Form, Strep Throat (ED), Pleural Effusion (DC), Acute Cough (ED) Additional Instructions: Increase fluids especially juices and water Dvij-xqy-ycxgojo cough and cold medicine of your choice for your symptoms recommend Delsym cough syrup Zyrtec or Claritin daily include Flonase daily Continue your inhaler/nebulizer as directed Steroids as directed--take with food heat to the face 20-30 minutes 4-6 times a day for pain Salt water gargles, throat lozenges or throat sprays as desired Antibiotic as directed--finished the medication Call Dr. Colunga office tomorrow to make follow-up appointment If your symptoms persist, change or worsen significantly before you can contact your personal physician then please, without delay, go to the emergency department for further evaluation. Follow-up with PCP in 7-10 days or sooner if needed Follow up with PCP soon in regards to your blood pressure which is decreased . 82/60 Please monitor patient's blood pressure at home at least 2 times a day. and continue to weight daily Patient Language: Ethiopian Prescriptions: New azithromycin 250 mg tablet See Rx Instructions .ROUTE .COMPLEX Qty: 6 0RF Rx Instructions: For 250 mg dose pack: take 500 mg today (day 1), then 250 mg for 4 days (days 2-5) albuterol sulfate [Ventolin HFA] 90 mcg/actuation HFA aerosol inhaler 2 puff inhalation QID PRN (Reason: shortness of breath or wheezing) Qty: 6.7 0RF No Action dapagliflozin propanediol [Farxiga] 10 mg Tablet 10 mg PO DAILY cyanocobalamin (vitamin B-12) 1,000 mcg tablet extended release 1,000 mcg PO DAILY albuterol sulfate [Ventolin HFA] 90 mcg/actuation HFA aerosol inhaler 1 puff inhalation Q4H PRN fluticasone propionate 50 mcg/actuation spray,suspension 1 spray intranasal DAILY PRN Rx Instructions: administer into each nostril coenzyme Q10 30 mg capsule 30 mg PO TID cholecalciferol (vitamin D3) 50 mcg (2,000 unit) tablet 50 mcg PO DAILY Zyrtec 10 mg capsule 10 mg PO DAILY PRN terbinafine HCl 250 mg tablet 250 mg PO DAILY Qty: 84 0RF Entresto 24-26 mg tablet 1 tablet PO BID aspirin [Adult Low Dose Aspirin] 81 mg tablet,delayed release (DR/EC) 81 mg PO DAILY Qty: 90 1RF Patient Comments: Holding for 1 week prior sertraline 25 mg tablet 25 mg PO DAILY Qty: 90 1RF Eliquis 5 mg tablet 5 mg PO Q12H Qty: 180 1RF Follow-up/Referrals: Jaleel Mcgovern MD [Primary Care Provider, [facility]] Time of Disposition: 15:00
[2025-01-05 14:28] LABS: EDCOVIDSCREEN Negative (Negative); EDINFLUASCREEN Negative (Negative); EDINFLUBSCREEN Negative (Negative)
--- OUTSIDE RECORDS SUMMARY | 2025-01-05 15:52 | XMS_ITS | Patient Health Record ---
Author Organization [facility] Address [address] [place] [address] Care Team Providers Care Stretch Machine Operator Name Role Phone VIMAL RAY Unavailable [phone] Reason For Referral No Information Plan Of Treatment No Information Insurance Providers Payer Name Payer Address Payer Phone Subscriber Number Group Number Insured Name Patient Relationship to Insured Coverage Start Date Coverage End Date [place] [address] [address] [place], [place] [id number] Mack Abena Self - patient is the insured 6 [place] [address] [place], [place] [id number] Mack Abena Self - patient is the insured [address] [place] [address] [address] [place] [address] [id number] Mack Abena Self - patient is the insured 6
--- OUTSIDE RECORDS SUMMARY | 2025-01-05 16:01 | XMS_ITS | Encounter Summary ---
Author Organization [facility] Healthcare Address [address] [place] [address] Care Team Providers Care Patch Machine Operator Name Role Phone Reynaldo Flannery DO Unavailable [phone] Guanakito Holland MD Unavailable [phone] Jaleel Mcgovern MD Primary Care Provider [phone] Encounter Details Date Type Department Care Team (Late st Contact Info) Description 06/21/2024 Orders Only [facility] Health Information Management [address] [place] [id number] Scanning, Provider Social History Tobacco Use [...] or relatives? 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
--- OUTSIDE RECORDS SUMMARY | 2025-01-05 16:01 | XMS_ITS | Encounter Summary ---
Author Organization [facility] Healthcare Address [address] [place] [address] Care Team Providers Care Process Development Manager Name Role Phone Reynaldo Flannery DO Unavailable [phone] Guanakito Holland MD Unavailable [phone] Jaleel Mcgovern MD Primary Care Provider [phone] Encounter Details Date Type Department Care Team (Late st Contact Info) Description 08/12/2022 Telephone [facility] Physical Medicine and Rehabilitation [address] [place] [address] Kimberly Gibbons, [employer] Social History Tobacco Use Types Packs/Day Years [...] Date Recorded PHQ-2 Total Score 0 08/12/2022 [facility] - [...] on file 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 Question Answer Date of Assessment Author Little interest or pleasure in doing things Not at all 08/12/2022 2:22 PM BENJAT Yissel Ayers , SOCK BOARDER Feeling down, depressed, or hopeless Not at all 08/12/2022 2:22 PM CDT Yissel Ayers , SOCK BOARDER Trouble falling or staying asleep, or sleeping too much Several days 08/12/2022 2:22 PM CDT Miles Ayers, SOCK BOARDER Feeling tired or having little energy Several days 08/12/2022 2:22 PM CDT Yissel Ayers , SOCK BOARDER Poor appetite or overeating Not at all 08/12/2022 2: 22 PM BENJAT Yissel Ayers, SOCK BOARDER Feeling bad about yourself - or that you are a failure or have let yourself or your family down Not at all 08/12/2022 2:22 PM CDT Yissel Ayers , SOCK BOARDER Trouble concentrating on things, such as reading the newspaper or watching television Not at all 08/12/2022 2:22 PM CDT Yissel Ayers , SOCK BOARDER Moving or speaking so slowly that other people could have noticed? Or the opposite - being so fidgety or restless that you have been moving around a lot more than usual. Not at all 08/12/2022 2:22 PM CDT Yissel Ayers , SOCK BOARDER Thoughts that you would be better off or hurting yourself in some way Not at all 08/12/2022 2:22 PM Yissel Doshi, SOCK BOARDER Patient Health Questionnaire-9 Score 2 08/12/2022 2:22 PM CDT Yissel Ayers, SOCK BOARDER documented as of this encounter Miscellaneous Notes * Pre-Admission Screening - Kimberly Gibbons SLP - 08/12/2022 9:44 AM CDT [facility] Physical Medicine and Rehabilitation Preadmission [...] level of care. Patient is currently at [facility] . The patient is being [...] Payor Source: Primary: Medicare A&B Secondary:Policy number: [id number] Case discussed with Dr. Nena Oneal on [...] Use: Not on file Patient's Preferred Language: Ukrainian Cultural Requests During Hospitalization: none conveyed Acute [...] DAPT who presents after receiving TNK at [facility] as a thrombectomy page. Per the patient's family at bedside, the patient was having lunch with one of her daughters when her daughter noticed that she started leaning towards the right. She subsequently became mute and developed a left gaze preference. Her last known normal was 1305. [facility] to [facility], there her NIHSS was reportedly a [address] physician[address] Gomez evaluated the patient by telestroke and recommended a CTH + CTA head and neck. She had a hyperdense left MCA sign on CTH and a left M1 occlusion on CTA. She was a GO for TNK and received the drug at 1423.She was then transferred to [facility] for thrombectomy evaluation. On arrival her [...] DAPT who presents after receiving TNK at [facility] as a thrombectomy page. The patient is GO for MT, she will need repeat labs to ensure that the values are real. If they arethen she will need a workup for metabolic acidosis. Moreover, she has pulmonary edema on CT CAP that needs follow up. Disposition: [facility] Neuro Critical Care Admission H&P CC: Acute right sided weakness HPI: Ms Giron is a 82y/o female with PMH of CAD, SD, SSS s/p Biotronik pacemaker, Atrial fibrillation (previously [...] BP of 68/31. She was taken to [facility] for further evaluation as a Code [...] of TNK at 14:[address] [facility] ED for mechanical thrombectomy evaluation. Upon arrival to [facility] ED her vital signs were: HR [...] RA lead revision on 09/14/18 done at [facility]), non-morbid obesity (BMI 30), GENNY non compliant with CPAP, PAD and carotid artery stenosis who presented to [facility] on 08/03/22 with R si ded [...] their arrival. She was initially taken to [facility] to evaluation for stroke. Her BP's improved to 109/[address] Head showed a large hyperdense MCA without hemorrhage, then subsequent CTA Head/Neck showed complete occlusion of theM1 segment of the L MCA. There were also carotid stenoses in the proximal LICA (80%) and proximal SKYLAR (50%). Ms Giron was then transferred to [facility] for tPA and thrombectomy. Ms Giron had an SD in 2013 requiring JOI to mid LCx performed at [facility]. Subsequently shedeveloped atrial fibrillation and tachy-hailey [...] woman with past medical history of CAD, SD, SSS s/p Biotronikpacemaker, Atrial fibrillation (previously on [...] - Monitor on telemetry Consults: SMART (Supervisor [place], PT/OT, [employer], Spiritual Care) #Hyperlipidemia LDL on admission was 68. Goal LDL for secondary stroke prevention is <70. She has previously refused anti-lipid medication reporting feeling unwell on medicaiton and with muscle pain without weakness. # CAD s/p SD with stent placement (2013) # HFrEF (LVEF 20%, was LVEF 40% in 2019) She follows with Dr. Hernandez [facility] Cardiology - last seen 07/18/22 [...] BID and taking intermittently, however her pharmacy ([facility]) indicates she does not fill this medication [...] in the field was 68/31, 90/45 at [facility]. Initially responded to fluid boluses. Noted to [...] a 82y/o female with PMH of CAD, SD, SSS s/p Biotronik pacemaker, Atrial fibrillation (previously [...] BP of 68/31. She was taken to [facility] for further evaluation as a Code [...] of TNK at 14:[address] [facility] ED for mechanical thrombectomy evaluation. Upon arrival to [facility] ED her vital signs were: HR [...] woman with past medical history of CAD, SD, SSS s/p Biotronikpacemaker, Atrial fibrillation (previously on [...] differential for consideration per TOAST criteria include: [id number]-[id number] embolism or cardioembolism. Cardioembolism is most likely [...] mg PO qHS (SPARCL trial). The current [place] [employer]roke [employer] guidelines recommend long-term treatment with [...] muscle pain without weakness. # CAD s/p SD with stent placement (2013) # HFrEF (LVEF 20%, was LVEF 40% in 2019) She follows with Dr. Hernandez [facility] Cardiology - last seen 07/18/22 [...] BID and taking intermittently, however her pharmacy ([facility]) indicates she does not fillthis medication and [...] admitted to acute: 08/03/22 Precautions/Restrictions: Aspiration, Falls [place] Suicide Severity Rating Scale: Allergies: Allergies Allergen [...] mL 30 mL oral QID PRN Capri [place]rant[place], MD [DISCONTINUED] furosemide (LASIX) tablet 20 mg [...] bed mobility SBA (08/12/2022 9:31 AM) Cognition/Communication/Swallowing: [employer] Communication: expressive aphasia (08/12/2022 9:31 AM) [employer] Swallowing: Mild Dysphagia - pureed/thin (08/12/2022 9:31 AM) Conditions requiring acute rehab and risk for complications: Gait dysfunction - risk for falls and further injury, fracture Uncontrolled Hypertension - risk for stroke, stroke extension, SD Decreased mobility - Risk for Fall, skin [...] by a provider, Intense PT/OT/SP, Access to [employer] physicians, Supervised feeding groups, Frequent Neuroassessment, Bowel [...] the intensive Inpatient rehabilitation program offered at [facility] . documented in this encounter Plan of Treatment Not on file documented as of this encounter Visit Diagnoses Not on filedocumented in this encounter Care Teams Process Development Manager Relationship Specialty Start Date End Date Jaleel Mcgovern MD PCP - General Family Practice 07/18/22 Reynaldo Flannery DO Consulting Physician Cardiology 09/26/17 Guanakito Holland MD Consulting Physician Cardiovascular Disease 07/29/18 documented as of this encounter
--- OUTSIDE RECORDS SUMMARY | 2025-01-05 16:01 | XMS_ITS | Encounter Summary ---
Author Organization [facility] Healthcare Address [address] [place] [address] Care Team Providers Care Elementary [employer] School Teacher Name Role Phone Reynaldo Flannery DO Unavailable [phone] Guanakito Holland MD Unavailable [phone] Jaleel Mcgovern MD Primary Care Provider [phone] Encounter Details Date Type Department Care Team (Late st Contact Info) Description 05/21/2024 Orders Only [facility] Health Information Management [address] [place] [id number] Scanning, Provider Social History Tobacco Use [...] Recorded Patient Health Questionnaire-2 Score 0 08/23/2022 [facility] - Occupational [...] on file 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
--- OUTSIDE RECORDS SUMMARY | 2025-01-05 16:01 | XMS_ITS | Encounter Summary ---
Author Organization [facility] Healthcare Address [address] [place] [address] Care Team Providers Care Manufacturing Controller Name Role Phone Reynaldo Flannery DO Unavailable [phone] Guanakito Holland MD Unavailable [phone] Jaleel Mcgovern MD Primary Care Provider [phone] Encounter Details Date Type Department Care Team (Late st Contact Info) Description 12/30/2024 Telephone [facility] Medical Group Cardiology [address] [address] Mannie Hernandez MD [address] [facility] [address] [facility] [address] [place] [address] Social History Tobacco Use Types Packs/Day Years Used Date Smoking Tobacco: Former Cigarettes 0.5 5 Q uit: 1975 Smokeless Tobacco: Never Alcohol [...] or relatives? Once a week 08/12/2022 Attends [employer] Not on file 08/12 Active Member [...] Recorded Patient Health Questionnaire-2 Score 0 08/23/2022 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 Advised to reach out with any questions or concerns. * Telephone Encounter - Lizbet Bashir RN - 01/04/2025 4:11 PM CDT Mychart message below from pts daughter. Will forward to [facility]. Please advise. Good morning, Abena Mack, 1940. Abena woke up this morning weighing in at 138. She has lost the majority of the water weight build up. Her normal weight is 133 to 134, so she still has a few pounds of water on her. Yesterday her ankles were tight and the right ankle showed swelling. This morning her ankles are normal. That being reported, what are the next steps to take? Do you want her to discontinue the Lasix as previously stated, and continuing the Spironolactone at1/2 daily? Do you think that is enough to keep the water off of her? It is not comfortable letting the water build in her she says. Also, we are wondering if you can schedule an Echo cardiogram for our mom to see if her heart has improved, stayed the same at 20% or if it has gotten any worse? I asked about this last year, but did not follow up to ensure it was done. Thank you for your time. Tabatha Giron [phone] * Telephone Encounter - Lizbet Bashir RN - 12/30/2024 4:41 PM CDT Mychart message below from pts daughter. Called and spoke with Tabatha. Discussed dosages of furosemide and spironolactone. It was noted that pt was only getting furosemide 20 mg daily instead of the 40 mg daily. Pt denies any SOB or any other symptoms. Daughter states that pt has actually been sleeping better the past 2 nights. She will give pt the furosemide 40 mg daily as prescribed and then call with an update on pts symptoms and weights on Friday. Advised to call sooner if pt continues to gain weight or develops any SOB. Daughter verbalizes understanding. Good afternoon Dr. Hernandez, My mom, Abena Giron, 1940, saw you recently for a follow up to a hospital visit. You placed Abena back on Furosemide 20 MG daily and 1/2 spironolactone daily. She's been taking them sinceshe saw you last week. She lost 5 pounds the first few days, but she gained 4 pounds since yesterday. Her current weight is 148 pounds. What do you recommend she do? Previously when she was retaining water, she was instructed to take afurosemide in the AM and PM. Thank you for your time and information. Tabatha Ashbywin documented in this encounter Plan of Treatment Not on file documented as of this encounter Visit Diagnoses Not on filedocumented in this encounter Care Teams Manufacturing Controller Relationship Specialty Start Date End Date Jaleel Mcgovern MD PCP - General Family Practice 07/18/22 Reynaldo Flannery DO Consulting Physician Cardiology 09/26/17 Guanakito Holland MD Consulting Physician Cardiovascular Disease 07/29/18 documented as of this encounter
--- OUTSIDE RECORDS SUMMARY | 2025-01-05 16:01 | XMS_ITS | Clinical Summary ---
Author Organization [facility] Address [address] [place] [address] Care Team Providers Care Cardiovascular Specialist Name Role Phone Reynaldo Flannery DO Unavailable Guanakito Holland MD Unavailable [phone] Jaleel Mcgovern MD Primary Care Provider [phone] Allergies Active Allergy Reactions Criticality Noted Date [...] is to continue close follow-up with local senior solutions workflow consultant and therefore would like to discuss with [...] needed. Assessment & Plan (03/12/2017 2:39 PM ASSOCIATE PROFESSOR OF GEOGRAPHY): Patient has Xanax for p.r.n. use. She is somewhat afraid to use this medication. She notes a positive response when she needs it. She states she is having panic attacks once to twice a month at [place]. She has been logging these since December. She states her anxiety/panic began after her . She has not been in for any formal counseling since his passing. She did see someone at [facility] for awhile. We discussed Senior renewal. She declines at the present time. She would like to continue to monitor her panic attacks and was instructed to use Xanax as previously prescribed on an as needed basis. 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 Normal Cardiolite in August 2014. Assessment & Plan (08/29/2022 9:25 PM CDT): Denies any chest pain or anginal equivalent. Recent drop in her LVEF to 20% from 40% with unclear etiology. Continue aspirin, metoprolol and Crestor. Would like to discuss with her local senior solutions workflow consultant about additional ischemic workup as she plans [...] given Assessment & Plan (03/12/2017 2:37 PM ASSOCIATE PROFESSOR OF GEOGRAPHY): Blood pressure is slightly elevated during office [...] is less than 70. Will discuss local senior solutions workflow consultant about statin therapy and possible PCSK9 inhibitor. [...] 06/24/2017 Assessment & Plan (03/12/2017 2:39 PM ASSOCIATE PROFESSOR OF GEOGRAPHY): Influenza A negative influenza B negative. Sore throat 03/12/2017 06/24/2017 Assessment & Plan (03/12/2017 2:39 PM ASSOCIATE PROFESSOR OF GEOGRAPHY): Rapid strep negative. Viral URI with cough 03/12/2017 018 Assessment & Plan (03/12/2017 2:40 PM ASSOCIATE PROFESSOR OF GEOGRAPHY): Humidification, fluids, and rest were recommended. Patient [...] AT [facility]. NSR today in office. CntDarvin Serna for anticoagulation Assessment & Plan (03/12/2017 2:37 PM ASSOCIATE PROFESSOR OF GEOGRAPHY): Patient will continue routine follow-up with Dr. Pennie pierre and local senior solutions workflow consultant as recommended. She reports compliance with her [...] Encounters Date Type Department Care Team Description 12/30/2024 Telephone [facility] Card[facility] [address] [facility] [address] [place] [address] Mannie Hernandez MD 12/24/2024 1:00 PM CDT Office Visit [facility] Medical Group Cardiology at [address] [place] [address] Mannie Hernandez MD Coronary artery disease involving white earth coronary artery of white earth heart without angina pectoris (Primary Dx); History of coronary artery stent placement; Cardiac pacemaker in situ; HFrEF (heart failure with reduced ejection fraction); Permanent atrial fibrillation (HCC) 12/23/2024 Telephone [facility] Card[facility] [address] [place] [address] Lizbet Miller MA Medical Records Requested 12/14/2024 Orders Only [facility] Health Information Management [address] [place] [address] Scanning, Provider 11/24/2024 11:00 AM CDT Ancillary Procedure [facility] Cardiology [address] [facility] [address] [place] [phone] Paroxysmal atrial fibrillation (HCC); Sick sinus syndrome (HCC); Cardiac pacemaker in situ 11/23/2024 Orders Only [facility] Cardiology [address] [place] [address] [place] [address] Mannie Hernandez MD Permanent atrial fibrillation (HCC) (Primary Dx); Cardiac pacemaker in situ; Sick sinus syndrome (HCC) 11/02/2024 10:30 AM CDT Ancillary Procedure [facility] Cardiology [address] [place] [address] [place] [phone] Cardiac pacemaker in situ [Z95.0] (Primary [...] 79 Hypertension; Breast cancer Child Asthma Daughter Chlele Jara COPD Father Derek COPD; Cause of : COPD Dementia Father Derek Dementia; Depression Father Derek Depression; Heart attack Father Derek Asthma Maternal Grandmother Grandma Dementia Mother Dementia; Depression Mother Depression; Other Mother Angina; Cause o f : Angina Diabetes Sister 1 [place] Heart attack Sister 1 [place] Heart disease Sister 1 [place] Other Sister 3 DM, CAD; Other Sister 4 Valve Replaceme nt; Relation Name Status Comments Brother 1 68 Brother 2 79 Child Daughter Chelle Jara Father Derek (Age 79) Maternal Grandmother Grandma Mother (Age 93) Sister 1 [place] Alive Sister 2 Alive Sister 3 Sister [...] Recorded Patient Health Questionnaire-2 Score 0 08/23/2022 [facility] of Occupat ional [facility] - Occupational Stress Questionnaire Answer Date [...] Sex Female 11:18 AM ASSOCIATE PROFESSOR OF GEOGRAPHY Gender Identity Female 10/09/2022 9:08 AM CDT Sexual Orientation Choose not to disclose 2022 9:08 AM CDT Obstetrics History Para Term AB IAB SAB Ectopic Multiple Livin g Live Births 6 6 6 Date Outcome GA Total Labor Labor//3rd Weight Sex Type Anes PTL Sabi A1 [...] 05/25/2019, 01/06/2017 Medical Devices Implanted Type Area Civil Rights Attorney Device Identifier Shelf Expiration Date Model / Serial / Lot [employer] [id number] Endocardial Pacing Lead Promri Solia Jt 45 - [id number] - [id number] Implanted:Qty: 1 on 07/29/2018 by Guanakito Holland MD at [facility] Lead [employer] 12/22/2019 [id number] / [id number] / [employer] [id number] Endocardial Pacing Lead Promri Solia T 53 - [id number] - [id number] Implanted:Qty: 1 on 07/29/2018 by Guanakito Holland MD at [facility] Lead [employer] 12/22/2019 [id number] / [id number] / [employer] [id number] Solia S 45cm Bipolar Active Fixation Lead Pacing Steroid Eluting - [id number] - [id number] Implanted:Qty: 1 on 09/14/2018 by Reynaldo Flannery DO at [facility] Lead [employer] [id number] 05/21/2020 [id number] / [id number] / [id number] [employer] Inc [id number] Edora Promri 16x12n3.5mm 1 Chamber Rate Adaptive Unipolar Bipolar - [id number] - [id number] Implanted:Qty: 1 on 07/29/2018 by Guanakito Holland MD at [facility] Pacemaker [employer] 11/22/2019 [id number] / [id number] / Medtronic Cardiac Rhythm Mgmt [id number] Tyrx 2.7x2.5in Medium Envelope Absorbable Polyarylate Minocycline - [id number] Implanted:Qty: 1 on 09/14/2018 by Reynaldo Flannery DO at [facility] [employer] Inc 10/21/2018 [id number] / / [id number] Chinchilla V[employer] Perclose 6fr Vascular Closure [id number] - [id number] Implanted:Qty: 1 on 08/03/2022 at [facility] [employer] 03/23/2024 1267 3-03 / / [id number] Procedures Procedure Name Priority Date/Time Associated Diagnosis Comments SCAN - LABS 12/15/2024 SCAN - RADIOLOGY/IMAGING 12/14/2024 DEVICE CHECK - IN OFFICE Routine 11/24/2024 10:59 AM CDT Paroxysmal atrial fibrillation (HCC) Sick sinus syndrome (HCC) Cardiac pacemaker in situ DEVICE CHECK - REMOTE Routine 11/03/2024 8:01 AM CDT Paroxysmal atrial fibrillation (HCC) Sick sinus syndrome (HCC) HFrEF (heart failure with reduced ejection fraction) SCREENING MAMMOGRAM BILATERAL W OSCAR Schedule Routine, Read Routine (OP Routine) 04/06/2020 1:21 PM ASSOCIATE PROFESSOR OF GEOGRAPHY Visit for screening mammogram Essential hypertension Mixed hyperlipidemia COLONOSCOPY Routine 05/26/2019 HM DEXA SCAN Routine 11/14/2014 from Last 3 Months or Most Recently Relevant to Health Maintenance Results * SCAN - LABS (12/15/2024) us Provider Scanning Final Result * SCAN - RADIOLOGY/IMAGING (12/14/2024) Anatomical Region Laterality Modality Other us Provider Scanning Edited Result - Final * DEVICE CHECK - IN OFFICE (11/24/2024 [...] 3.0 years 7 months remaining to LEANA. 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 Presenting rhythm- Vpaced. Underlying rhythm-Vpaced with [...] pacing and sensing thresholds. Presenting rhythm: Vpaced. 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 No Ventricular arrhythmias detected. Medication: Eliquis, Entresto. Office pacemaker f/u in 3-6 months. Biotronik remote f/u 02/01/2025. Merry Cavanaugh RN Mannie Hernandez MD [facility] PROC EDURES Final Result * Screening Mammogram Bilateral W Oscar (04/06/2020 1:21 PM ASSOCIATE PROFESSOR OF GEOGRAPHY) Anatomical Region Laterality Modality Breast Bilateral Mammography 04/06/2020 2:09 PM ASSOCIATE PROFESSOR OF GEOGRAPHY Impressions 04/06/2020 3:13 PM ASSOCIATE PROFESSOR OF GEOGRAPHY There is no mammographic evidence of malignancy. A 1 year screening mammogram is recommended. BI-RADS: 2 - Benign. The patient will be entered into a reminder system with a target due date of 1 year for her next mammogram. Electronically signed by: Micaela Jang MD Narrative 04/06/2020 3:13 PM ASSOCIATE PROFESSOR OF GEOGRAPHY EXAMINATION: SCREENING MAMMOGRAM BILATERAL W OSCAR ORDERING [...] DEXA SCAN (11/14/2014) DEXA Scan Abnormal Comment:Osteopenia Result [facility] Historical Provider HEALTH MAINTENANCE Final Result from Last 3 Months or Most Recently Relevant to Health Maintenance Insurance MEDICARE [facility] MEDICARE [facility] BLUE CROSS MEDICARE SUPPLEMENT MEDICARE BLUE CROSS MEDICARE SUPPLEMENT MEDICARE [facility] Advance Directives For more information, please contact: [phone] * LIMITED - No CPR (Latest Code [...] 11:36 AM 10/19/2019 7:30 PM Care Teams Cardiovascular Specialist Relationship Specialty Start Date End Date Jaleel Mcgovern MD PCP - General Family Practice 07/18/22 Reynaldo Flannery DO Consulting Physician Cardiology 09/26/17 Guanakito Holland MD Consulting Physician Cardiovascular Disease 07/29/18
--- OUTSIDE RECORDS SUMMARY | 2025-01-05 16:01 | XMS_ITS | Encounter Summary ---
Author Organization [facility] Healthcare Address [address] [place] [address] Care Team Providers Care Stripper Black And White Name Role Phone Reynaldo Flannery DO Unavailable [phone] Guanakito Holland MD Unavailable [phone] Jaleel Mcgovern MD Primary Care Provider [phone] Encounter Details Date Type Department Care Team (Late st Contact Info) Description 12/14/2024 Orders Only [facility] Health Information Management [address] [place] [id number] Scanning, Provider Social History Tobacco Use [...] Recorded Patient Health Questionnaire-2 Score 0 08/23/2022 [facility] of Occupat ional Health - [...] on file 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 Gender Identity Female 10/09/2022 9:08 AM CDT Sexual Orientation Choose not to disclose 2022 9:08 AM CDT documented as of this encounter Plan of Treatment Not on file documented as of this encounter Procedures Procedure Name Priority Date/Time Associated Diagnosis Comments SCAN - RADIOLOGY/IMAGING 12/14/2024 documented in this encounter Results * SCAN - RADIOLOGY/IMAGING (12/14/2024) Anatomical Region Laterality Modality Other us Provider Scanning Edited Result - Final documented in this encounter Visit Diagnoses Not on filedocumented in this encounter Care Teams Stripper Black And White Relationship Specialty Start Date End Date Jaleel Mcgovern MD PCP - General Family Practice 07/18/22 Reynaldo Flannery DO Consulting Physician Cardiology 09/26/17 Guanakito Holland MD Consulting Physician Cardiovascular Disease 07/29/18 documented as of this encounter
== END 2025-01-05 15:01 | disposition home or self-care (01) ==
PROVIDERS: Emergency Provider Registered Nurse; PCP Family Medicine
DX: J02.0 Streptococcal pharyngitis (principal); J90 Pleural effusion, not elsewhere classified; R05.1 Acute cough; Z20.822 Contact with and (suspected) exposure to COVID-19; I73.9 Peripheral vascular disease, unspecified; E78.5 Hyperlipidemia, unspecified; I69.351 Hemiplegia and hemiparesis following cerebral infarction affecting right dominant side; I48.91 Unspecified atrial fibrillation; I25.10 Atherosclerotic heart disease of native coronary artery without angina pectoris; I11.0 Hypertensive heart disease with heart failure; I50.9 Heart failure, unspecified; F41.9 Anxiety disorder, unspecified; Z95.0 Presence of cardiac pacemaker; Z95.5 Presence of coronary angioplasty implant and graft; Z79.01 Long term (current) use of anticoagulants; Z79.82 Long term (current) use of aspirin; Z87.891 Personal history of nicotine dependence
CPT/HCPCS: 71046; 87426; 87804; 87880; 99213; G0463

== ENCOUNTER 2025-01-17 21:31 | Inpatient (IN) | payer MEDICARE, SELFPAY ==
--- NOTE | ~2025-01-17 | CT_ITS ---
EXAMINATION: CT chest abdomen pelvis w con DATE: 01/17/2025 23:45 INDICATION: Abdominal pain. TECHNIQUE: Computed tomography (CT) of the chest, abdomen, and pelvis was performed with 100 mL Omnipaque 350 intravenous contrast. Automated exposure control and iterative reconstruction technique were employed. The dose-length product was 743.03 mGy-cm. COMPARISON: CT abdomen and pelvis 12/14/2024, chest CT 04/01/2024 FINDINGS: CHEST CT: There is mild atelectasis bilaterally. There is a 4 mm nodule in right lower lobe, likely benign. There is a 3 mm nodule in left lower lobe, likely benign. There are small right and moderate-sized left pleural effusions. Cardiomegaly is noted. There is a left chest wall pacer with leads in the right atrium and right ventricle. No pericardial effusion. There is no pulmonary embolus. Aortic atherosclerosis is noted. There is total occlusion of proximal left subclavian artery. There are bridging endplate osteophytes at multiple levels in the spine, consistent with diffuse idiopathic skeletal hyperostosis (DISH). There is mild thoracic spondylosis. ABDOMEN/PELVIS CT: The liver and spleen are normal. There are changes of cholecystectomy. The pancreas and adrenal glands are normal. There is cortical thinning of the kidneys. There is a 1.8 cm mass in left kidney. There is diverticulosis of the colon without evidence of diverticulitis. The appendix is normal. There are no dilated loops of bowel. There are no pathologically enlarged lymph nodes. There is a small volume of ascites. There is edema of the intra-abdominal fat and body wall fat. There is severe lumbar spondylosis. IMPRESSION: 1. Small right and moderate-sized left pleural effusions. 2. 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 3. 1.8 cm left kidney mass, most likely a hemorrhagic cyst. Renal cell carcinoma is not excluded. Abdomen CT without and with contrast is recommended.. Reviewed, dictated and finalized at location E. IMPRESSION: 1. Small right and moderate-sized left pleural effusions. 2. 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 3. 1.8 cm left kidney mass, most likely a hemorrhagic cyst. Renal cell carcinom a is not excluded. Abdomen CT without and with contrast is recommended..
--- NOTE | ~2025-01-17 | XR_ITS ---
Examination: XR chest 1V portable Clinical History: sob Comparison: 01/05/2025 Technique: Portable AP Findings: Left pacemaker. Cardiomegaly. Large left pleural effusion. Small right effusion. Bibasilar dependent atelectasis. No acute bony abnormality. IMPRESSION: 1. Large left and small right pleural effusions. Reviewed, dictated and finalized at location R.
--- OUTSIDE RECORDS SUMMARY | 2025-01-17 21:33 | XMS_ITS | Patient Health Record ---
Author Organization [facility] Address [address] [place] [address] Care Team Providers Care Petroleum Terminal Plant Operator Name Role Phone VIMAL RAY Unavailable [phone] Reason For Referral No Information Plan Of Treatment No Information Insurance Providers Payer Name Payer Address Payer Phone Subscriber Number Group Number Insured Name Patient Relationship to Insured Coverage Start Date Coverage End Date [place]IC[place] [address] [address] [place], [place] [id number] Mack Abena Self - patient is the insured 6 MEDICARE [place] [address] [place], [place] [id number] Mack Abena Self - patient is the insured [address] [place] [address] [address] [place] [address] [id number] Mack Abena Self - patient is the insured 6
--- OUTSIDE RECORDS SUMMARY | 2025-01-17 21:33 | XMS_ITS | Encounter Summary ---
Author Organization [facility] Healthcare Address [address] [place] [address] Care Team Providers Care Voice Professor Name Role Phone Reynaldo Flannery DO Unavailable [phone] Guanakito Holland MD Unavailable [phone] Jaleel Mcgovern MD Primary Care Provider [phone] Encounter Details Date Type Department Care Team (Late st Contact Info) Description 06/21/2024 Orders Only [facility] Health Information Management [address] [place] [id number] Scanning, Provider Social History Tobacco Use [...] or relatives? 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
--- OUTSIDE RECORDS SUMMARY | 2025-01-17 21:33 | XMS_ITS | Clinical Summary ---
Author Organization [facility] Address [address] [place] [address] Care Team Providers Care Technology Strategist Name Role Phone Reynaldo Flannery DO Unavailable [phone] Guanakito Holland MD Unavailable [phone] Jaleel Mcgovern MD Primary Care Provider [phone] Allergies Active Allergy Reactions Criticality Noted Date [...] is to continue close follow-up with local network services project manager and therefore would like to discuss with [...] needed. Assessment & Plan (03/12/2017 2:39 PM PARKING METER COLLECTOR): Patient has Xanax for p.r.n. use. She is somewhat afraid to use this medication. She notes a positive response when she needs it. She states she is having panic attacks once to twice a month at [place]. She has been logging these since December. She states her anxiety/panic began after her . She has not been in for any formal counseling since his passing. [facility] We discussed Senior renewal. She declines at the present time. She would like to continue to monitor her panic attacks and was instructed to use Xanax as previously prescribed on an as needed basis. Coronary artery disease invo lving tyonek coronary artery of tyonek heart 12/25/2016 Overview (04/19/2019): Status post PCI in June 2013 (RL). Normal Cardiolite in August 2014. Assessment & Plan (08/29/2022 9:25 PM CDT): Denies any chest pain or anginal equivalent. Recent drop in her LVEF to 20% from 40% with unclear etiology. Continue aspirin, metoprolol and Crestor. Would like to discuss with her local network services project manager about additional ischemic workup as she plans [...] given Assessment & Plan (03/12/2017 2:37 PM PARKING METER COLLECTOR): Blood pressure is slightly elevated during office [...] is less than 70. Will discuss local network services project manager about statin therapy and possible PCSK9 inhibitor. [...] 06/24/2017 Assessment & Plan (03/12/2017 2:39 PM PARKING METER COLLECTOR): Influenza A negative influenza B negative. Sore throat 03/12/2017 06/24/2017 Assessment & Plan (03/12/2017 2:39 PM PARKING METER COLLECTOR): Rapid strep negative. Viral URI with cough 03/12/2017 018 Assessment & Plan (03/12/2017 2:40 PM PARKING METER COLLECTOR): Humidification, fluids, and rest were recommended. Patient [...] 11:05 AM CDT): Routinely follows-up with at [facility]. NSR today in office. CntDarvin Serna for anticoagulation Assessment & Plan (03/12/2017 2:37 PM PARKING METER COLLECTOR): Patient will continue routine follow-up with Dr. Pennie pierre and local network services project manager as recommended. She reports compliance with her [...] Encounters Date Type Department Care Team Description 01/12/2025 Telephone [facility] Cardiology at [address] [place] [address] Kraig Josue MD 12/30/2024 Telephone [facility] Cardiology [address] [facility] [address] [place] [address] Mannie Hernandez MD 12/24/2024 1:00 PM CDT Office Visit [facility] Cardiology at [address] [place] [address] Mannie Hernandez MD Coronary artery disease involving tyonek coronary artery of tyonek heart without angina pectoris (Primary Dx); History of coronary artery stent placement; Cardiac pacemaker in situ; HFrEF (heart failure with reduced ejection fraction); Permanent atrial fibrillation (HCC) 12/23/2024 Telephone [facility] Cardiology [address] [place] [address] Lizbet Miller MA Medical Records Requested 12/14/2024 Orders Only [facility] Health Information Management [address] [place] [address] Scanning, Provider 11/24/2024 11:00 AM CDT Ancillary Procedure [facility] Cardiology [address] [place] [address] Paroxysmal atrial fibrillation (HCC); Sick sinus syndrome (HCC); Cardiac pacemaker in situ 11/23/2024 Orders Only [facility] Cardiology [address] [facility] [address] [place] [phone] Mannie Hernandez MD Permanent atrial fibrillation (HCC) (Primary Dx); Cardiac pacemaker in situ; Sick sinus syndrome (HCC) 11/02/2024 10:30 AM CDT Ancillary Procedure [facility] Cardiology [address] [facility] [address] [address] Cardiac pacemaker in situ [Z95.0] [...] o f : Angina Diabetes Sister 1 Widen Heart attack Sister 1 Widen Heart disease Sister 1 Widen Other Sister 3 DM, CAD; Other Sister 4 Valve Replaceme nt; Relation Name Status Comments Brother 1 68 Brother 2 79 Child Daughter Chelle Jara Father Derek (Age 79) Maternal Grandmother Grandma Mother (Age 93) Sister 1 Widen Alive Sister 2 Alive Sister 3 Sister [...] Patient Health Questionnaire-2 Score 0 08/23/2022 [facility] of Occupat ional Health - Occupational [...] on file Legal Sex Female 11:18 AM PARKING METER COLLECTOR Gender Identity Female 10/09/2022 9:08 AM CDT [...] 05/25/2019, 01/06/2017 Medical Devices Implanted Type Area Biologist Aide Device Identifier Shelf Expiration Date Model / Serial / Lot [employer]ik [employer] [id number] Endocardial Pacing Lead Promri Solia Jt 45 - [id number] - [id number] Implanted:Qty: 1 on 07/29/2018 by Guanakito Holland MD at [facility] Lead [employer] 12/22/2019 [id number] / [id number] / [employer] [id number] Endocardial Pacing Lead Promri Solia T 53 - [id number] - [id number] Implanted:Qty: 1 on 07/29/2018 by Guanakito Holland MD at [facility] Lead [employer] 12/22/2019 [id number] / [id number] / Bi[employer] [id number] Solia S 45cm Bipolar Active Fixation Lead Pacing Steroid Eluting - [id number] - [id number] Implanted:Qty: 1 on 09/14/2018 by Reynaldo Flannery DO at [facility] Lead [employer] [id number] 05/21/2020 [id number] / [id number] / [id number] [employer] Inc [id number] Edora Promri 51y20l0.5mm 1 Chamber Rate Adaptive Unipolar Bipolar - [id number] - [id number] Implanted:Qty: 1 on 07/29/2018 by Guanakito Holland MD at [facility] Pacemaker [employer] 11/22/2019 [id number] / [id number] / Medtronic Cardiac Rhythm Mgmt [id number] Tyrx 2.7x2.5in Medium Envelope Absorbable Polyarylate Minocycline - [id number] Implanted:Qty: 1 on 09/14/2018 by Reynaldo Flannery DO at [facility] [employer] Inc 10/21/2018 [id number] / / [id number] Chinchilla Vascular Perclose 6fr Vascular Closure 20883-35 - [id number] Implanted:Qty: 1 on 08/03/2022 at [facility] [employer] 03/23/2024 1267 3-03 / / [id number] Procedures Procedure Name Priority Date/Time Associated Diagnosis [...] Read Routine (OP Routine) 04/06/2020 1:21 PM PARKING METER COLLECTOR Visit for screening mammogram Essential hypertension Mixed [...] 3.0 years 7 months remaining to LEANA. EDITOR MANAGING NEWSPAPER-93 %. Presenting rhythm- Vpaced. Underlying rhythm-Vpaced with [...] pacing and sensing thresholds. Presenting rhythm: Vpaced. EDITOR MANAGING NEWSPAPER-93 %. No Ventricular arrhythmias detected. Medication: Eliquis, Entresto. Office pacemaker f/u in 3-6 months. Biotronik remote f/u 02/01/2025. Merry Cavanaugh RN Mannie Hernandez MD CARDIAC SERVICES PROC EDURES Final Result * Screening Mammogram Bilateral W Oscar (04/06/2020 1:21 PM PARKING METER COLLECTOR) Anatomical Region Laterality Modality Breast Bilateral Mammography 04/06/2020 2:09 PM PARKING METER COLLECTOR Impressions 04/06/2020 3:13 PM PARKING METER COLLECTOR There is no mammographic evidence of malignancy. A 1 year screening mammogram is recommended. BI-RADS: 2 - Benign. The patient will be entered into a reminder system with a target due date of 1 year for her next mammogram. Electronically signed by: Micaela Jang MD Narrative 04/06/2020 3:13 PM PARKING METER COLLECTOR EXAMINATION: SCREENING MAMMOGRAM BILATERAL W OSCAR ORDERING [...] has been no suspicious interval change. Result [facility] Ryan Castrejon MD IMG MAMMO PROCEDURES Final Res ult * Colonoscopy (05/26/2019) Anatomical Region Laterality Modality Other Historical Provider ENDOSCOPY PROCEDURES Roshni l Result * DEXA SCAN (11/14/2014) DEXA Scan Abnormal Comment:Osteopenia Historical Provider HEALTH MAINTENANCE Final Result from Last 3 Months or Most Recently Relevant to Health Maintenance Insurance MEDICARE [facility] MEDICARE [facility] MEDICARE SUPPLEMENT MEDICARE [facility] MEDICARE SUPPLEMENT MEDICARE [facility] [place] Advance Directives For more information, please contact: [phone] * LIMITED - No CPR (Latest Code [...] 11:36 AM 10/19/2019 7:30 PM Care Teams Technology Strategist Relationship Specialty Start Date End Date Jaleel Mcgovern MD PCP - General Family Practice 07/18/22 Reynaldo Flannery DO Consulting Physician Cardiology 09/26/17 Guanakito Holland MD Consulting Physician Cardiovascular Disease 07/29/18
--- OUTSIDE RECORDS SUMMARY | 2025-01-17 21:33 | XMS_ITS | Encounter Summary ---
Author Organization [facility] Healthcare Address [address] [place] [address] Care Team Providers Care Plastic Worker Name Role Phone Reynaldo Flannery DO Unavailable [phone] Guanakito Holland MD Unavailable [phone] Jaleel Mcgovern MD Primary Care Provider [phone] Encounter Details Date Type Department Care Team (Late st Contact Info) Description 12/14/2024 Orders Only [facility] Health Information Management [address] [place] [address] Scanning, Provider Social History Tobacco Use [...] Recorded Patient Health Questionnaire-2 Score 0 08/23/2022 [facility] of Occupat ional Health - Occupational Stress [...] file Legal Sex Female 11:18 AM MEDICAL ASSISTING INSTRUCTOR Gender Identity Female 10/09/2022 9:08 AM [...] filedocumented in this encounter Care Teams Plastic Worker Relationship Specialty Start Date End Date Jaleel Mcgovern MD PCP - General Family Practice 07/18/22 Reynaldo Flannery DO Consulting Physician Cardiology 09/26/17 Guanakito Holland MD Consulting Physician Cardiovascular Disease 07/29/18 documented as of this encounter
--- OUTSIDE RECORDS SUMMARY | 2025-01-17 21:33 | XMS_ITS | Encounter Summary ---
Author Organization [facility] Healthcare Address [address] [place] [address] Care Team Providers Care Bookbinder Apprentice Name Role Phone Reynaldo Flannery DO Unavailable [phone] Guanakito Holland MD Unavailable [phone] Jaleel Mcgovern MD Primary Care Provider [phone] Encounter Details Date Type Department Care Team (Late st Contact Info) Description 08/12/2022 Telephone [facility] Physical Medicine and Rehabilitation [address] [place] [address] Kimberly Gibbons, PHOTOGRAPHIC SUPERVISOR Social History Tobacco Use Types Packs/Day Years [...] or relatives? Once a week 08/12/2022 Attends [employer] Not on file 08/12 Active Member [...] Date Recorded PHQ-2 Total Score 0 08/12/2022 [facility] of Occupat ional Health - [...] on file Legal Sex Female 11:18 AM PRINTED CIRCUIT LAYOUT TAPER Gender Identity Female 10/09/2022 9:08 AM CDT [...] 08/12/2022 2:22 PM BENJAT Yissel Ayers , DOCUMENTATION SPECIALIST Feeling down, depressed, or hopeless Not at all 08/12/2022 2:22 PM CDT Yissel Ayers , DOCUMENTATION SPECIALIST Trouble falling or staying asleep, or sleeping too much Several days 08/12/2022 2:22 PM CDT Miles Ayers, DOCUMENTATION SPECIALIST Feeling tired or having little energy Several days 08/12/2022 2:22 PM CDT Yissel Ayers , DOCUMENTATION SPECIALIST Poor appetite or overeating Not at all 08/12/2022 2: 22 PM BENJAT Yissel Ayers, DOCUMENTATION SPECIALIST Feeling bad about yourself - or that you are a failure or have let yourself or your family down Not at all 08/12/2022 2:22 PM CDT Yissel Ayers , DOCUMENTATION SPECIALIST Trouble concentrating on things, such as reading the newspaper or watching television Not at all 08/12/2022 2:22 PM CDT Yissel Ayers , DOCUMENTATION SPECIALIST Moving or speaking so slowly that other people could have noticed? Or the opposite - being so fidgety or restless that you have been moving around a lot more than usual. Not at all 08/12/2022 2:22 PM CDT Yissel Ayers , DOCUMENTATION SPECIALIST Thoughts that you would be better off or hurting yourself in some way Not at all 08/12/2022 2:22 PM Yissel Doshi, DOCUMENTATION SPECIALIST Patient Health Questionnaire-9 Score 2 08/12/2022 2:22 PM CDT Yissel Ayers, DOCUMENTATION SPECIALIST documented as of this encounter Miscellaneous Notes * Pre-Admission Screening - Kimberly Gibbons SLP - 08/12/2022 9:44 AM CDT [facility] Physical Medicine and Rehabilitation Preadmission Screening Reason [...] level of care. Patient is currently at [facility] . The patient is being referred [...] Payor Source: Primary: Medicare A&B Secondary:Policy number: [id number] Case discussed with Dr. Nena Oneal on [...] Use: Not on file Patient's Preferred Language: Slovak Cultural Requests During Hospitalization: none conveyed Acute [...] DAPT who presents after receiving TNK at [facility] as a thrombectomy page. Per the patient's family at bedside, the patient was having lunch with one of her daughters when her daughter noticed that she started leaning towards the right. She subsequently became mute and developed a left gaze preference. Her last known normal was 1305. She wastaken to [facility], there her NIHSS was reportedly a [address] physician[address]. Gomez evaluated the patient by telestroke and recommended a CTH + CTA head and neck. She had a hyperdense left MCA sign on CTH and a left M1 occlusion on CTA. She was a GO for TNK and received the drug at 1423.She was then transferred to [facility] for thrombectomy evaluation. On arrival her [...] DAPT who presents after receiving TNK at [facility] as a thrombectomy page. The patient is GO for MT, she will need repeat labs to ensure that the values are real. If they arethen she will need a workup for metabolic acidosis. Moreover, she has pulmonary edema on CT CAP that needs follow up. Dis[facility] Neuro Critical Care Admission H&P [...] BP of 68/31. She was taken to [facility] for further evaluation as a Code [...] of TNK at 14:28 and transferred to [facility] ED for mechanical thrombectomy evaluation. Upon arrival to [facility] ED her vital signs were: HR [...] RA lead revision on 09/14/18 done at [facility]), non-morbid obesity (BMI 30), GENNY non compliant with CPAP, PAD and carotid artery stenosis who presented to [facility] on 08/03/22 with R si ded [...] their arrival. She was initially taken to [facility] to evaluation for stroke. Her BP's improved to 109/89 [address] Head showed a large hyperdense MCA without hemorrhage, then subsequent CTA Head/Neck showed complete occlusion of theM1 segment of the L MCA. There were also carotid stenoses in the proximal LICA (80%) and proximal SKYLAR (50%). Ms Giron was then transferred to [facility] for tPA and thrombectomy. Ms Giron had an HI in 2013 requiring JOI to mid LCx performed at [facility]. 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 [...] Work-up: - Monitor on telemetry Consults: SMART (Channel Executive, PT/OT, PHOTOGRAPHIC SUPERVISOR, Spiritual Care) #Hyperlipidemia LDL on admission was 68. Goal LDL for secondary stroke prevention is <70. She has previously refused anti-lipid medication reporting feeling unwell on medicaiton and with muscle pain without weakness. # CAD s/p HI with stent placement (2013) # HFrEF (LVEF 20%, was LVEF 40% in 2019) She follows with Dr. Hernandez [facility] Cardiology - last seen 07/18/22 in office. [...] BID and taking intermittently, however her pharmacy ([facility]) indicates she does not fill this medication [...] in the field was 68/31, 90/45 at [place]. Initially responded to fluid boluses. Noted to [...] BP of 68/31. She was taken to [facility] for further evaluation as a Code [...] of TNK at 14:28 and transferred to [facility] ED for mechanical thrombectomy evaluation. Upon arrival to [facility] ED her vital signs were: HR [...] differential for consideration per TOAST criteria include: kprvst-zt-kywomq embolism or cardioembolism. Cardioembolism is most likely [...] in 2019) She follows with Dr. Hernandez [facility] Cardiology - last seen 07/18/22 in office. [...] BID and taking intermittently, however her pharmacy ([facility]) indicates she does not fillthis medication and [...] admitted to acute: 08/03/22 Precautions/Restrictions: Aspiration, Falls [place] Suicide Severity Rating Scale: Allergies: Allergies Allergen [...] bed mobility SBA (08/12/2022 9:31 AM) Cognition/Communication/Swallowing: PHOTOGRAPHIC SUPERVISOR Communication: expressive aphasia (08/12/2022 9:31 AM) PHOTOGRAPHIC SUPERVISOR Swallowing: Mild Dysphagia - pureed/thin (08/12/2022 9:31 [...] by a provider, Intense PT/OT/SP, Access to Nut Sorter physicians, Supervised feeding groups, Frequent Neuroassessment, Bowel [...] the intensive Inpatient rehabilitation program offered at [facility] . documented in this encounter Plan of Treatment Not on file documented as of this encounter Visit Diagnoses Not on filedocumented in this encounter Care Teams Bookbinder Apprentice Relationship Specialty Start Date End Date Jaleel Mcgoevrn MD PCP - General Family Practice 07/18/22 Reynaldo Flannery DO Consulting Physician Cardiology 09/26/17 Guanakito Holland MD Consulting Physician Cardiovascular Disease 07/29/18 documented as of this encounter
[2025-01-17 21:40] VITALS: PULSE 88; RESP 15
--- NOTE | 2025-01-17 21:41 | ECG_ITS ---
Test Date: 2025-01-17 21:42:22 Measurements Intervals Jenners Rate: 88 P: 0 WV: 0 QRS: -47 QRSD: 191 T: 94 QT: 446 QTc: 540 Interpretive Statements ELECTRONIC VENTRICULAR PACEMAKER BASELINE ARTIFACT- I, II, AVR, V1-V2 NO FURTHER INTERPRETATION IS POSSIBLE ATYPICAL ECG Compared to ECG 04/04/2024 13:14:16 NO SIGNIFICANT CHANGE Electronically Signed On 01-18-2025 06:14:31 CDT by Solis Page D.O.
[2025-01-17 21:42] VITALS: BP 77/56
--- OUTSIDE RECORDS SUMMARY | 2025-01-17 21:53 | XMS_ITS | Encounter Summary ---
Author Organization [facility] Healthcare Address [address] [place] [address] Care Team Providers Care E Business Consultant Name Role Phone Reynaldo Flannery DO Unavailable [phone] Guanakito Holland MD Unavailable [phone] Jaleel Mcgovern MD Primary Care Provider [phone] Encounter Details Date Type Department Care Team (Late st Contact Info) Description 06/21/2024 Orders Only [facility] Health Information Management [address] [place] [address] Scanning, Provider Social History Tobacco Use [...] Recorded Patient Health Questionnaire-2 Score 0 08/23/2022 [facility] of Occupat ional Health - Occupational [...] on file Legal Sex Female 11:18 AM IMAGING SCHEDULER Gender Identity Female 10/09/2022 9:08 AM [...] on filedocumented in this encounter Care Teams E Business Consultant Relationship Specialty Start Date End Date Jaleel Mcgovern MD PCP - General Family Practice 07/18/22 Reynaldo Flannery DO Consulting Physician Cardiology 09/26/17 Guanakito Holland MD Consulting Physician Cardiovascular Disease 07/29/18 documented as of this encounter
--- OUTSIDE RECORDS SUMMARY | 2025-01-17 21:53 | XMS_ITS | Encounter Summary ---
Author Organization [facility] Healthcare Address [address] [place] [address] Care Team Providers Care Octave Board Racker Name Role Phone Reynaldo Flannery DO Unavailable [phone] Guanakito Holland MD Unavailable [phone] Jaleel Mcgovern MD Primary Care Provider [phone] Encounter Details Date Type Department Care Team (Late st Contact Info) Description 05/21/2024 Orders Only [facility] Health Information Management [address] [place] [address] Scanning, Provider Social History Tobacco Use [...] or relatives? Once a week 08/12/2022 Attends [employer] Services Not on file 08/12 Active Member [...] Patient Health Questionnaire-2 Score 0 08/23/2022 [facility] of Occupat ional Health - [...] file Legal Sex Female 11:18 AM SALES COMMISSIONS ANALYST Gender Identity Female 10/09/2022 9:08 AM [...] on filedocumented in this encounter Care Teams Octave Board Racker Relationship Specialty Start Date End Date Jaleel Mcgovern MD PCP - General Family Practice 07/18/22 Reynaldo Flannery DO Consulting Physician Cardiology 09/26/17 Guanakito Holland MD Consulting Physician Cardiovascular Disease 07/29/18 documented as of this encounter
--- OUTSIDE RECORDS SUMMARY | 2025-01-17 21:53 | XMS_ITS | Clinical Summary ---
Author Organization [facility] Address [address] [place] [address] Care Team Providers Care Pricing Lead Name Role Phone Reynaldo Flannery DO Unavailable [phone] Guanakito Holland MD Unavailable [phone] Jaleel Mcgovern MD Primary Care Provider [phone] Allergies Active Allergy Reactions Criticality Noted Date [...] is to continue close follow-up with local health care attorney and therefore would like to discuss with [...] needed. Assessment & Plan (03/12/2017 2:39 PM MATERIAL DISTRIBUTOR): Patient has Xanax for p.r.n. use. She is somewhat afraid to use this medication. She notes a positive response when she needs it. She states she is having panic attacks once to twice a month at [place]. She has been logging these since December. She states her anxiety/panic began after her . She has not been in for any formal counseling since his passing. She did [facility] someone at [facility]. We discussed Senior renewal. She declines at the present time. She would like to continue to monitor her panic attacks and was instructed to use Xanax as previously prescribed on an as needed basis. Coronary artery disease invo lving lone pine coronary artery of lone pine heart 12/25/2016 Overview (04/19/2019): Status post PCI in June 2013 (RL). Normal Cardiolite in August 2014. Assessment & Plan (08/29/2022 9:25 PM CDT): Denies any chest pain or anginal equivalent. Recent drop in her LVEF to 20% from 40% with unclear etiology. Continue aspirin, metoprolol and Crestor. Would like to discuss with her local health care attorney about additional ischemic workup as she plans [...] given Assessment & Plan (03/12/2017 2:37 PM MATERIAL DISTRIBUTOR): Blood pressure is slightly elevated during office [...] is less than 70. Will discuss local health care attorney about statin therapy and possible PCSK9 inhibitor. [...] 06/24/2017 Assessment & Plan (03/12/2017 2:39 PM MATERIAL DISTRIBUTOR): Influenza A negative influenza B negative. Sore throat 03/12/2017 06/24/2017 Assessment & Plan (03/12/2017 2:39 PM MATERIAL DISTRIBUTOR): Rapid strep negative. Viral URI with cough 03/12/2017 018 Assessment & Plan (03/12/2017 2:40 PM MATERIAL DISTRIBUTOR): Humidification, fluids, and rest were recommended. Patient [...] 11:05 AM CDT): Routinely follows-up with at [facility]. NSR today in office. CntDarvin Serna for anticoagulation Assessment & Plan (03/12/2017 2:37 PM MATERIAL DISTRIBUTOR): Patient will continue routine follow-up with Dr. Pennie pierre and local health care attorney as recommended. She reports compliance with her [...] Type Department Care Team Description 01/12/2025 Telephone [facility] Cardiology at [address] [place] [address] Kraig Josue MD 12/30/2024 Telephone [facility] Cardiology [address] [facility] [address] [place] [address] Mannie Hernandez MD 12/24/2024 1:00 PM CDT Office Visit [facility] Cardiology at [address] [place] [address] Mannie Hernandez MD Coronary artery disease involving lone pine coronary artery of lone pine heart without angina pectoris (Primary Dx); History of coronary artery stent placement; Cardiac pacemaker in situ; HFrEF (heart failure with reduced ejection fraction); Permanent atrial fibrillation (HCC) 12/23/2024 Telephone [facility] Cardiology [address] [place] [address] Lizbet Miller MA Medical Records Requested 12/14/2024 Orders Only [facility] Health Information Management [address] [place] [address] Scanning, Provider 11/24/2024 11:00 AM CDT Ancillary Procedure [facility] Cardiology [address] [place] [address] Paroxysmal atrial fibrillation (HCC); Sick sinus syndrome (HCC); Cardiac pacemaker in situ 11/23/2024 Orders Only [facility] Cardiology [address] [facility] [address] [place] [phone] Mannie Hernandez MD Permanent atrial fibrillation (HCC) (Primary Dx); Cardiac pacemaker in situ; Sick sinus syndrome (HCC) 11/02/2024 10:30 AM CDT Ancillary Procedure [facility] Cardiology [address] [facility] [address], [place] [address] Cardiac pacemaker in situ [Z95.0] [...] o f : Angina Diabetes Sister 1 [place] Heart attack Sister 1 [place] Heart disease Sister 1 [place] Other Sister 3 DM, CAD; Other Sister 4 Valve Replaceme nt; Relation Name Status Comments Brother 1 68 Brother 2 79 Child Daughter Chelle Jara Father Derek (Age 79) Maternal Grandmother Grandma Mother (Age 93) Sister 1 [place] Alive Sister 2 Alive Sister 3 Sister [...] Health Questionnaire-2 Score 0 08/23/2022 [facility] - Occupational [...] file Legal Sex Female 11:18 AM MATERIAL DISTRIBUTOR Gender Identity Female 10/09/2022 9:08 AM CDT [...] 05/25/2019, 01/06/2017 Medical Devices Implanted Type Area Legal Clerk Device Identifier Shelf Expiration Date Model / Serial / Lot [employer] [id number] Endocardial Pacing Lead Promri Solia Jt 45 - [id number] - [id number] Implanted:Qty: 1 on 07/29/2018 by Guanakito Holland MD at [facility] Lead [employer] 12/22/2019 [id number] / [id number] / [employer] [id number] Endocardial Pacing Lead Promri Solia T 53 - [id number] - [id number] Implanted:Qty: 1 on 07/29/2018 by Guanakito Holland MD at [facility] Lead [employer] 12/22/2019 [id number] / [id number] / [employer] [id number] Solia S 45cm Bipolar Active Fixation Lead Pacing Steroid Eluting - [id number] - [id number] Implanted:Qty: 1 on 09/14/2018 by Reynaldo Flannery DO at [facility] Lead [employer] [id number] 05/21/2020 [id number] / [id number] / [id number] [employer] [id number] Edora Promri 86h10x9.5mm 1 Chamber Rate Adaptive Unipolar Bipolar - [id number] - [id number] Implanted:Qty: 1 on 07/29/2018 by Guanakito Holland MD at [facility] Pacemaker [employer] 11/22/2019 [id number] / [id number] / Medtronic Cardiac Rhythm Mgmt [id number] Tyrx 2.7x2.5in Medium Envelope Absorbable Polyarylate Minocycline - [id number] Implanted:Qty: 1 on 09/14/2018 by Reynaldo Flannery DO at [facility] [employer] Inc 10/21/2018 [id number] / / [id number] Chinchilla Vascular Perclose 6fr Vascular Closure [id number] - [id number] Implanted:Qty: 1 on 08/03/[address] [facility] [employer] 03/23/2024 1267 3-03 / / [id number] Procedures Procedure Name Priority Date/Time Associated Diagnosis [...] Read Routine (OP Routine) 04/06/2020 1:21 PM MATERIAL DISTRIBUTOR Visit for screening mammogram Essential hypertension Mixed [...] 3.0 years 7 months remaining to LEANA. GENERAL SUPERINTENDENT-93 %. Presenting rhythm- Vpaced. Underlying rhythm-Vpaced with [...] pacing and sensing thresholds. Presenting rhythm: Vpaced. GENERAL SUPERINTENDENT-93 %. No Ventricular arrhythmias detected. Medication: Eliquis, Entresto. Office pacemaker f/u in 3-6 months. Biotronik remote f/u 02/01/2025. Merry Cavanaugh RN Mannie Hernandez MD CARDIAC SERVICES PROC EDURES Final Result * Screening Mammogram Bilateral W Oscar (04/06/2020 1:21 PM MATERIAL DISTRIBUTOR) Anatomical Region Laterality Modality Breast Bilateral Mammography 04/06/2020 2:09 PM MATERIAL DISTRIBUTOR Impressions 04/06/2020 3:13 PM MATERIAL DISTRIBUTOR There is no mammographic evidence of malignancy. A 1 year screening mammogram is recommended. BI-RADS: 2 - Benign. The patient will be entered into a reminder system with a target due date of 1 year for her next mammogram. Electronically signed by: Micaela Jang MD Narrative 04/06/2020 3:13 PM MATERIAL DISTRIBUTOR EXAMINATION: SCREENING MAMMOGRAM BILATERAL W OSCAR ORDERING [...] has been no suspicious interval change. Result [facility] Ryan Castrejon MD IMG MAMMO PROCEDURES Final Res ult * Colonoscopy (05/26/2019) Anatomical Region Laterality Modality Other Historical Provider ENDOSCOPY PROCEDURES Roshni l Result * DEXA SCAN (11/14/2014) DEXA Scan Abnormal Comment:Osteopenia Historical Provider HEALTH MAINTENANCE Final Result from Last 3 Months or Most Recently Relevant to Health Maintenance Insurance MEDICARE [facility] MEDICARE [facility] MEDICARE SUPPLEMENT MEDICARE [facility] MEDICARE SUPPLEMENT MEDICARE [facility] [place] Advance Directives For more information, please contact: [phone] * LIMITED - No CPR (Latest Code [...] 11:36 AM 10/19/2019 7:30 PM Care Teams Pricing Lead Relationship Specialty Start Date End Date Jaleel Mcgovern MD PCP - General Family Practice 07/18/22 Reynaldo Flannery DO Consulting Physician Cardiology 09/26/17 Guanakito Holland MD Consulting Physician Cardiovascular Disease 07/29/18
--- OUTSIDE RECORDS SUMMARY | 2025-01-17 21:54 | XMS_ITS | Encounter Summary ---
Author Organization [facility] Healthcare Address [address] [place] [address] Care Team Providers Care Rail Specialist Name Role Phone Reynaldo Flannery DO Unavailable Guanakito Holland MD Unavailable [phone] Jaleel Mcgovern MD Primary Care Provider [phone] Encounter Details Date Type Department Care Team (Late st Contact Info) Description 08/12/2022 Telephone [facility] Physical Medicine and Rehabilitation [address] [place] [address] Kimberly Gibbons, PARTS CHASER Social History Tobacco Use Types Packs/Day Years [...] Date Recorded PHQ-2 Total Score 0 08/12/2022 [facility] - Occupational Stress [...] on file 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 Gender Identity Female 10/09/2022 9:08 AM [...] 08/12/2022 2:22 PM BENJAT Yissel Ayers , HOURLY ASSOCIATE Feeling down, depressed, or hopeless Not at all 08/12/2022 2:22 PM CDT Yissel Ayers , HOURLY ASSOCIATE Trouble falling or staying asleep, or sleeping too much Several days 08/12/2022 2:22 PM CDT Miles Ayers, HOURLY ASSOCIATE Feeling tired or having little energy Several days 08/12/2022 2:22 PM CDT Yissel Ayers , HOURLY ASSOCIATE Poor appetite or overeating Not at all 08/12/2022 2: 22 PM BENJAT Yissel Ayers, HOURLY ASSOCIATE Feeling bad about yourself - or that you are a failure or have let yourself or your family down Not at all 08/12/2022 2:22 PM CDT Yissel Ayers , HOURLY ASSOCIATE Trouble concentrating on things, such as reading the newspaper or watching television Not at all 08/12/2022 2:22 PM CDT Yissel Ayers , HOURLY ASSOCIATE Moving or speaking so slowly that other people could have noticed? Or the opposite - being so fidgety or restless that you have been moving around a lot more than usual. Not at all 08/12/2022 2:22 PM CDT Yissel Ayers , HOURLY ASSOCIATE Thoughts that you would be better off or hurting yourself in some way Not at all 08/12/2022 2:22 PM Yissel Doshi, HOURLY ASSOCIATE Patient Health Questionnaire-9 Score 2 08/12/2022 2:22 PM CDT Yissel Ayers, HOURLY ASSOCIATE documented as of this encounter Miscellaneous Notes * Pre-Admission Screening - Kimberly Gibbons SLP - 08/12/2022 9:44 AM CDT [facility] Physical Medicine and Rehabilitation [...] level of care. Patient is currently at [facility] . The patient is being referred and [...] Payor Source: Primary: Medicare A&B Secondary:Policy number: [id number] Case discussed with Dr. Nena Oneal on [...] Use: Not on file Patient's Preferred Language: Czech Cultural Requests During Hospitalization: none conveyed Acute [...] DAPT who presents after receiving TNK at [facility] as a thrombectomy page. Per the patient's family at bedside, the patient was having lunch with one of her daughters when her daughter noticed that she started leaning towards the right. She subsequently became mute and developed a left gaze preference. Her last known normal was 1305. [facility] was[facility] to [facility], there her NIHSS was reportedly a [address] physician[address] Dr. Gomez evaluated the patient by telestroke and recommended a CTH + CTA head and neck. She had a hyperdense left MCA sign on CTH and a left M1 occlusion on CTA. She was a GO for TNK and received the drug at 1423.She was then transferred to [facility] for thrombectomy evaluation. On arrival [...] DAPT who presents after receiving TNK at [facility] as a thrombectomy page. The patient is GO for MT, she will need repeat labs to ensure that the values are real. If they arethen she will need a workup for metabolic acidosis. Moreover, she has pulmonary edema on CT CAP that needs follow up. Dis[facility] Neuro Critical Care Admission H&P CC: Acute right sided weakness HPI: Ms Giron is a 82y/o female with PMH of CAD, OK, SSS s/p Biotronik pacemaker, Atrial fibrillation (previously [...] of TNK at 14:28 and transferred to [facility] ED for mechanical thrombectomy evaluation. Upon arrival to [facility] ED her vital signs were: [...] RA lead revision on 09/14/18 done at [facility]), non-morbid obesity (BMI 30), GENNY non compliant with CPAP, PAD and carotid artery stenosis who presented to [facility] on 08/03/22 with R si [...] (50%). Ms Giron was then transferred to [facility] for tPA and thrombectomy. Ms Giron had an OK in 2013 requiring JOI to mid LCx performed at [facility]. Subsequently shedeveloped atrial fibrillation and tachy-hailey [...] woman with past medical history of CAD, OK, SSS s/p Biotronikpacemaker, Atrial fibrillation (previously on [...] Work-up: - Monitor on telemetry Consults: SMART ([employer], PT/OT, PARTS CHASER, Spiritual Care) #Hyperlipidemia LDL on admission was 68. Goal LDL for secondary stroke prevention is <70. She has previously refused anti-lipid medication reporting feeling unwell on medicaiton and with muscle pain without weakness. # CAD s/p OK with stent placement (2013) # HFrEF (LVEF 20%, was LVEF 40% in 2019) She follows with Dr. Hernandez [facility] Cardiology - last seen [...] her pharmacy ([facility]) indicates she does not fill this medication [...] in the field was 68/31, 90/45 at [facility]. Initially responded to fluid boluses. Noted to [...] a 82y/o female with PMH of CAD, OK, SSS s/p Biotronik pacemaker, Atrial fibrillation (previously [...] of TNK at 14:28 and transferred to [facility] ED for mechanical thrombectomy evaluation. Upon arrival to [facility] ED her vital signs were: [...] woman with past medical history of CAD, OK, SSS s/p Biotronikpacemaker, Atrial fibrillation (previously on [...] differential for consideration per TOAST criteria include: lkzzfa-jl-zgnnya embolism or cardioembolism. Cardioembolism is most likely [...] mg PO qHS (SPARCL trial). The current [place] Stroke [employer] guidelines recommend long-term treatment with [...] muscle pain without weakness. # CAD s/p OK with stent placement (2013) # HFrEF (LVEF 20%, was LVEF 40% in 2019) She follows with Dr. Hernandez [facility] Cardiology - last seen [...] her pharmacy ([facility]) indicates she does not fillthis medication and [...] admitted to acute: 08/03/22 Precautions/Restrictions: Aspiration, Falls [place] Suicide Severity Rating Scale: Allergies: Allergies Allergen [...] bed mobility SBA (08/12/2022 9:31 AM) Cognition/Communication/Swallowing: PARTS CHASER Communication: expressive aphasia (08/12/2022 9:31 AM) PARTS CHASER Swallowing: Mild Dysphagia - pureed/thin (08/12/2022 9:31 AM) Conditions requiring acute rehab and risk for complications: Gait dysfunction - risk for falls and further injury, fracture Uncontrolled Hypertension - risk for stroke, stroke extension, OK Decreased mobility - Risk for Fall, skin [...] by a provider, Intense PT/OT/SP, Access to Quitline Counselor physicians, Supervised feeding groups, Frequent Neuroassessment, Bowel [...] intensive Inpatient rehabilitation program offered at [facility] . documented in this encounter Plan of Treatment Not on file documented as of this encounter Visit Diagnoses Not on filedocumented in this encounter Care Teams Rail Specialist Relationship Specialty Start Date End Date Jaleel Mcgovern MD PCP - General Family Practice 07/18/22 Reynaldo Flannery DO Consulting Physician Cardiology 09/26/17 Guanakito Holland MD Consulting Physician Cardiovascular Disease 07/29/18 documented as of this encounter
--- OUTSIDE RECORDS SUMMARY | 2025-01-17 21:54 | XMS_ITS | Encounter Summary ---
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
[2025-01-17 22:01] LABS: Hematocrit 45.5 % (37.0-47.0); Hemoglobin 14.1 g/dL (12.0-15.0); Immature Granulocyte Percent A 0.5 % (0-0.5); Lymphocytes Absolute Auto 1.39 K/mm3 (0.9-3.2); Mean Corpuscular HGB Conc 31.0 g/dl (32-36); Mean Corpuscular Hemoglobin 31.8 pg (26-34); Mean Corpuscular Volume 102.7 fl (80-100); Nucleated Red Blood Cells Absolute Auto 0.000 K/mm3 (0.0-0.012); Nucleated Red Blood Cells Perc 0.0 % (0.0-0.2); Platelet Count Result 283 k/mm3 (150-375); Red Blood Count 4.43 M/mm3 (4.2-5.4); White Blood Count 7.7 K/mm3 (4.5-10.0)
[2025-01-17 22:09] VITALS: BP 96/69; PULSE 87; RESP 14; TEMP 36; O2SAT 99
[2025-01-17 22:12] LABS: Alanine Aminotransferase 13 U/L (6-35); Albumin Level 4.3 g/dL (3.5-5.1); Alkaline Phosphatase 53 U/L (38-126); Anion Gap 12 mmol/L (4-12); Aspartate Amino Transferase 24 U/L (14-36); Bilirubin,Total 0.9 mg/dL (0.2-1.3); Blood Urea Nitrogen 23 mg/dL (7-17); Calcium 9.0 mg/dL (8.4-10.2); Carbon Dioxide 24 mmol/L (22-30); Chloride 102 mmol/L (98-107); Estimated CRCL calculation 32 ml/min; Estimated Glomerular Filt Rate 50; Glucose 115 mg/dL (65-110); Potassium 3.6 mmol/L (3.4-5.0); Sodium 138 mmol/L (137-145); Total Protein 7.4 g/dL (6.3-8.2)
--- NOTE | 2025-01-17 22:17 | ED_ITS ---
HPI - SOB/Dyspnea General Chief Complaint: Shortness of Breath/Dyspnea <Marti Harden APRN - Last Filed: 01/18/25 02:28> Stated Complaint: SWELLING <Marti Harden APRN - Last Filed: 01/18/25 02:28> Time Seen by Provider: 01/17/25 21:46 <Marti Harden APRN - Last Filed: 01/18/25 02:28> History of Present Illness HPI Narrative: Patient is an 84-year-old female who presents to the ER with swelling and tenderness to her mid section. She reports her symptoms started approximately 2 weeks ago but have worsened progressively over the last 2 days. Patient reports approximately 2 weeks ago she was diagnosed with strep throat and took a Z-Robbie. She reports her symptoms did not completely improved so her doctor put her on a 2nd Z-Robbie. Patient is still in the middle of that Z-Robbie at this time. She reports she has a history of congestive heart failure and takes Lasix and spironolactone. Patient endorses a history of diverticulitis. She denies any recent fevers, shortness of breath, cough, or acute back pain. < Marti Harden APRN - Last Filed: 01/18/25 02:28> Related Data Home Medications: Home Medications ?Medication ?Instructions ?Recorded ?Confirmed ?Last Taken ?Type dapagliflozin propanediol 10 mg 10 mg PO DAILY 4 12/14/24 12/14/24 History tablet (Farxiga) sacubitril 24 mg-valsartan 26 mg 1 tablet PO BID 06/2812/14/24 12/14/24 History tablet (Entresto) albuterol sulfate 90 mcg/actuation 1 puff inhalation Q 4H PRN 12/28/24 Unknown History aerosol inhaler (Ventolin HFA) cetirizine 10 mg capsule (Zyrtec) 10 mg PO DAILY PRN 1 Unknown History cholecalciferol (vitamin D3) 50 50 mcg PO DAILY Unknown History mcg (2,000 unit) tablet coenzyme Q10 30 mg capsule 30 mg PO TID 12/28/24 Unkn own History cyanocobalamin (vitamin B-12) 1,000 mcg PO DAILY 12/28 Unknown History 1,000 mcg tablet,extended release fluticasone propionate 50 1 spray intranasal DAILY PRN 12/28/24 Unknown History mcg/actuation nasal spray,suspension probotic and prebotic .Route 01/12/25 Unknown His tory <Marti Harden APRN - Last Filed: 01/18/25 02:28> Allergies/Adverse Reactions: Allergies Allergy/AdvReac Type Severity Reaction Status Date / Time codeine Allergy Intermediate rash and Verified 01/17/25 21:40 hives morphine Allergy Intermediate rash and Verified 01/17/25 21:40 hallucination Penicillins Allergy Intermediate rash and Verified 01/17/25 21:40 hives prednisone Allergy Unknown Unknown Verified 01/17/25 21:40 amiodarone AdvReac Intermediate Abdominal Verified 01/17/25 21:40 Pain [id number] Reductase AdvReac Intermediate pain Verified 01/17/25 21:40 Inhibitor <Marti Harden APRN - Last Filed: 01/18/25 02:28> Review of Systems 2 Review of Systems: All systems reviewed & are unremarkable except as noted in HPI and below <Marti Harden APRN - Last Filed: 01/18/25 02:28> [facility] Past Medical History Medical History: Medical History Peripheral vascular disease Hyperlipidemia Cerebrovascular accident (07/2022) status post TNK mechanical thrombectomy residual right-sided weakness Chronic anticoagulation Atrial fibrillation h/o Coronary artery disease Heart failure with reduced ejection fraction Aortic aneurysm Hypertension Anxiety <Marti Harden APRN - Last Filed: 01/18/25 02:28> Surgical History Surgical History: Surgical History History of permanent cardiac pacemaker placement History of coronary artery stent placement History of ERCP History of cholecystectomy <Marti Harden APRN - Last Filed: 01/18/25 02:28> Family History Family History: Family History Sibling Cancer Diabetes mellitus Heart disease <Marti Harden APRN - Last Filed: 01/18/25 02:28> Social History Social History: Social History Social History: Surrogate medical decision maker: ?All of her children? Code status: Do not resuscitate. Smoking status: Never smoker Additional smoking assessment comments: quit in 1974 Alcohol intake: never Substance use: never Substance use type: does not use Do You Feel Safe in your Home?: Yes Lack of Transportation: No Lack of Food: Never True Current Housing: I Have Housing Concerned About Future Housing: No Difficulty Paying Gas/Electric Bills: No Difficulty Paying for Meds: No Currently Unemployed: No Education: High School Diploma/GED Difficulty w/ Childcare or Family Care: No Living arrangements: alone Additional living arrangements comments: She lives alone. She has 4 daughters and 2 sons. Occupation/Education: retired Additional occupation/education comments: Retired, previously worked for [employer]. Spiritual care concerns: No Agree to blood products: Yes <Marti Harden APRN - Last Filed: 01/18/25 02:28> Exam 2 Narrative: GENERAL: Well appearing, well-nourished, non-toxic, in no acute distress. HEAD: Normocephalic, atraumatic. NECK: Supple. No adenopathy, no masses. RESPIRATORY: Airway patent, respirations nonlabored. Clear to auscultation bilaterally, no rales, rhonchi, wheezing. CARDIOVASCULAR: Regular rate, + murmur. Peripheral pulses 2+ and equal bilaterally. Mild pitting edema bilaterally. ABDOMINAL: Soft, positive tenderness left lower quadrant, + distended. Normoactive BS. MUSCULOSKELETAL: Moves all extremities. Strength/ROM intact without gross deformities. SKIN: Warm, dry, normal color. No rashes. NEURO: A&O X3. Speech clear. Cranial nerves II-XII intact. No ataxic movements. PSYCHIATRIC: Appropriate mood and affect. Normal interaction. <Marti Harden APRN - Last Filed: 01/18/25 02:28> Course FINANCIAL DATA ANALYST/PA Physician Supervision This visit was performed by both a physician and an APC. I performed all aspects of the MDM as documented. <Fran Pan MD - Last Filed: 01/18/25 02:47> Vital Signs Vital signs: Vital Signs Oxygen Delivery Room Air 01/17/25 21:35 Temperature 96.8 F L 01/17/25 22:09 Pulse Rate 87 01/17/25 22:09 Respiratory Rate 14 01/17/25 22:09 Blood Pressure 112/77 01/18/25 01:31 Pulse Oximetry 99 01/17/25 22:09 Oxygen Delivery Room Air 01/17/25 22:06 <Marti Harden APRN - Last Filed: 01/18/25 02:28> Vital Signs Oxygen Delivery Room Air 01/17/25 21:35 Temperature 96.8 F L 01/17/25 22:09 Pulse Rate 87 01/17/25 22:09 Respiratory Rate 14 01/17/25 22:09 Blood Pressure 112/77 01/18/25 01:31 Pulse Oximetry 99 01/17/25 22:09 Oxygen Delivery Room Air 01/17/25 22:06 <Fran Pan MD - Last Filed: 01/18/25 02:47> MDM - SOB/Dyspnea MDM Narrative Medical decision making narrative: Patient is an 84-year-old female who presents to the ER with swelling and tenderness to her mid section. She reports her symptoms started approximately 2 weeks ago but have worsened progressively over the last 2 days. Patient reports approximately 2 weeks ago she was diagnosed with strep throat and took a Z-Robbie. She reports her symptoms did not completely improved so her doctor put her on a 2nd Z-Robbie. Patient is still in the middle of that Z-Robbie at this time. She reports she has a history of congestive heart failure and takes Lasix and spironolactone. Patient endorses a history of diverticulitis. She denies any recent fevers, shortness of breath, cough, or acute back pain. Labs Ordered: CBC, CMP, lactic acid, UA, troponin, proBNP, PTT, INR, magnesium Imaging Ordered: CT chest abdomen pelvis with con, chest x-ray Medications Ordered: Lasix 40 mg IV Results: Patient's CT chest indicates cardiomegaly and pulmonary vascular congestion. Moderate left and smaller right pleural effusions. Moderate cardiomegaly. Pulmonary vascular congestion. Moderate left and smaller right pleural effusions with associated atelectasis. Chronic occlusion left subclavian artery. Unchanged 4 mm noncalcified nodule right lower lobe. Patient's CT abdomen pelvis indicates possible passive hepatic congestion. Small amount of ascites. Anasarca. Atherosclerotic disease. Cholecystectomy. Small amount of ascites. Colonic diverticulosis. Edema in the subcutaneous tissues of the body wall. Osteopenia. 1.4 cm lesion left kidney previously 1.7 cm, likely hemorrhagic cyst. Some mesenteric edema. Dilated IVC and hepatic veins. Mild nodularity of the liver. Diagnosis: Congestive heart failure, anasarca 0130-Attempted to have pt ambulate (pulse oximeter not functional at time). She endorses increased shortness of breath during ambulation. Results of imaging and lab work shared with patient and her family. It was advised patient be admitted to the hospital for further evaluation and treatment. Patient and her family verbalized understanding and are in agreement with plan. 0200- Spoke with hospitalist, Dr. Snow, who was in agreement with plan for admission. Patient will be admitted to the med/surg floor with telemetry. Cardiology will be consulted during admission. <Marti Harden, MANAGER MARKETING COMMUNICATION - Last Filed: 01/18/25 02:28> Patient is an 84-year-old female who presents to the ER with swelling and tenderness to her mid section. She reports her symptoms started approximately 2 weeks ago but have worsened progressively over the last 2 days. Patient reports approximately 2 weeks ago she was diagnosed with strep throat and took a Z-Robbie. She reports her symptoms did not completely improved so her doctor put her on a 2nd Z-Robbie. Patient is still in the middle of that Z-Robbie at this time. She reports she has a history of congestive heart failure and takes Lasix and spironolactone. Patient endorses a history of diverticulitis. She denies any recent fevers, shortness of breath, cough, or acute back pain. Labs Ordered: CBC, CMP, lactic acid, UA, troponin, proBNP, PTT, INR, magnesium Imaging Ordered: CT chest abdomen pelvis with con, chest x-ray Medications Ordered: Lasix 40 mg IV Results: Patient's CT chest indicates cardiomegaly and pulmonary vascular congestion. Moderate left and smaller right pleural effusions. Moderate cardiomegaly. Pulmonary vascular congestion. Moderate left and smaller right pleural effusions with associated atelectasis. Chronic occlusion left subclavian artery. Unchanged 4 mm noncalcified nodule right lower lobe. Patient's CT abdomen pelvis indicates possible passive hepatic congestion. Small amount of ascites. Anasarca. Atherosclerotic disease. Cholecystectomy. Small amount of ascites. Colonic diverticulosis. Edema in the subcutaneous tissues of the body wall. Osteopenia. 1.4 cm lesion left kidney previously 1.7 cm, likely hemorrhagic cyst. Some mesenteric edema. Dilated IVC and hepatic veins. Mild nodularity of the liver. Diagnosis: Congestive heart failure, anasarca 0130-Attempted to have pt ambulate (pulse oximeter not functional at time). She endorses increased shortness of breath during ambulation. Results of imaging and lab work shared with patient and her family. It was advised patient be admitted to the hospital for further evaluation and treatment. Patient and her family verbalized understanding and are in agreement with plan. 0200- Spoke with hospitalist, Dr. Snow, who was in agreement with plan for admission. Patient will be admitted to the med/surg floor with telemetry. Cardiology will be consulted during admission. This visit was performed by both a physician and an APC. I performed all aspects of the MDM as documented. <Fran Pan MD - Last Filed: 01/18/25 02:47> Differential Diagnosis Differential diagnosis: Likely acute exacerbation of chronic obstructive airways disease, congestive heart failure, community acquired pneumonia and asthma with exacerbation <Marti Harden APRN - Last Filed: 01/18/25 02:28> Lab Data Attestation: I reviewed the patient's lab results. <Marti Harden APRN - Last Filed: 01/18/25 02:28> Result diagrams: 01/17/25 21:55 01/17/25 21:55 <Marti Harden APRN - Last Filed: 01/18/25 02:28> Labs: Lab Results 01/17/25 01/17/25 01/17/25 Range/Units 21:55 22:35 22:50 WBC 7.7 (4.5-10.0) K/mm3 RBC 4.43 (4.2-5.4) M/mm3 Hgb 14.1 (12.0-15.0) g/dL Hct 45.5 (37.0-47.0) % MCV 102.7 H (80-100) fl MCH 31.8 (26-34) pg MCHC 31.0 L (32-36) g/dl RDW 14.9 H (11.5-14.5) % Plt Count 283 D (150-375) k/mm3 MPV 10.4 (7.4-10.4) fl Immature Gran % (Auto) 0.5 (0-0.5) % Neut % (Auto) 70.8 (45.5-73.1) % Lymph % (Auto) 18.1 L (18.3-44.2) % [place] % (Auto) 8.2 (2.6-8.5) % Eos % (Auto) 1.4 (0-4.4) % Baso % (Auto) 1.0 (0.2-1.2) % Lymph # (Auto) 1.39 (0.9-3.2) K/mm3 [place] # (Auto) 0.6 (0.1-0.6) K/mm3 Eos # (Auto) 0.1 (0-0.3) K/mm3 Baso # (Auto) 0.1 (0.0-0.1) K/mm3 Abs Immat Gran (auto) 0.04 H (0.00-0.031) K/mm3 Absolute Neuts (auto) 5.4 (1.3-6.7) K/mm3 Absolute Nucleated RBC 0.000 (0.0-0.012) K/mm3 Nucleated RBC % 0.0 (0.0-0.2) % PT 22.0 H (11.1-14.7) Seconds INR 2.0 APTT 31.8 (22.3-36.8) Seconds Sodium 138 (137-145) mmol/L Potassium 3.6 (3.4-5.0) mmol/L Chloride 102 (98-107) mmol/L Carbon Dioxide 24 (22-30) mmol/L Anion Gap 12 (4-12) mmol/L BUN 23 H (7-17) mg/dL Creatinine 1.04 H (0.7-1.0) mg/dL Estim Creat Clear Calc 32 ml/min Estimated GFR 50 L (59 - ) Glucose 115 H (65-110) mg/dL Lactic Acid 2.2 H (0.7-2.0) mmol/L Calcium 9.0 (8.4-10.2) mg/dL Magnesium 2.4 H (1.6-2.3) mg/dL Total Bilirubin 0.9 (0.2-1.3) mg/dL AST 24 (14-36) U/L ALT 13 (6-35) U/L Alkaline Phosphatase 53 (38-126) U/L Troponin I < 0.012 (0.000-0.034) ng/mL NT-Pro-B Natriuret Pep 34684 H (19.9-100) pg/mL Total Protein 7.4 (6.3-8.2) g/dL Albumin 4.3 (3.5-5.1) g/dL Urine Color Yellow (Yellow) Urine Appearance Clear (Clear) Urine pH 5.0 (5.0-9.0) Ur Specific [place] 1.033 (1.001-1.035) Urine Protein Negative (Negative) mg/dL Urine Glucose (UA) 3+ H (Negative) mg/dL Urine Ketones Trace H (Negative) mg/dL Ur Blood (Man) Trace (Negative) Urine Nitrate Negative (Negative) Urine Bilirubin Negative (Negative) Urine Urobilinogen 1.0 (<2.0) mg/dL Add Ur Microanalysis Reviewed Leukocyte Esterase Rfl Negative (Negative) MOLLY/UL Urine RBC 0-2 (0-2) /hpf Urine WBC 0-5 (0-3) /hpf Ur Squamous Epith Cells None seen (Few) /hpf Urine Bacteria None seen /hpf Urine Casts 3-5 <Marti Harden, MANAGER MARKETING COMMUNICATION - Last Filed: 01/18/25 02:28> Lab Results 01/17/25 01/17/25 01/17/25 Range/Units 21:55 22:35 22:50 WBC 7.7 (4.5-10.0) K/mm3 RBC 4.43 (4.2-5.4) M/mm3 Hgb 14.1 (12.0-15.0) g/dL Hct 45.5 (37.0-47.0) % MCV 102.7 H (80-100) fl MCH 31.8 (26-34) pg MCHC 31.0 L (32-36) g/dl RDW 14.9 H (11.5-14.5) % Plt Count 283 D (150-375) k/mm3 MPV 10.4 (7.4-10.4) fl Immature Gran % (Auto) 0.5 (0-0.5) % Neut % (Auto) 70.8 (45.5-73.1) % Lymph % (Auto) 18.1 L (18.3-44.2) % [place] % (Auto) 8.2 (2.6-8.5) % Eos % (Auto) 1.4 (0-4.4) % Baso % (Auto) 1.0 (0.2-1.2) % Lymph # (Auto) 1.39 (0.9-3.2) K/mm3 [place] # (Auto) 0.6 (0.1-0.6) K/mm3 Eos # (Auto) 0.1 (0-0.3) K/mm3 Baso # (Auto) 0.1 (0.0-0.1) K/mm3 Abs Immat Gran (auto) 0.04 H (0.00-0.031) K/mm3 Absolute Neuts (auto) 5.4 (1.3-6.7) K/mm3 Absolute Nucleated RBC 0.000 (0.0-0.012) K/mm3 Nucleated RBC % 0.0 (0.0-0.2) % PT 22.0 H (11.1-14.7) Seconds INR 2.0 APTT 31.8 (22.3-36.8) Seconds Sodium 138 (137-145) mmol/L Potassium 3.6 (3.4-5.0) mmol/L Chloride 102 (98-107) mmol/L Carbon Dioxide 24 (22-30) mmol/L Anion Gap 12 (4-12) mmol/L BUN 23 H (7-17) mg/dL Creatinine 1.04 H (0.7-1.0) mg/dL Estim Creat Clear Calc 32 ml/min Estimated GFR 50 L (59 - ) Glucose 115 H (65-110) mg/dL Lactic Acid 2.2 H (0.7-2.0) mmol/L Calcium 9.0 (8.4-10.2) mg/dL Magnesium 2.4 H (1.6-2.3) mg/dL Total Bilirubin 0.9 (0.2-1.3) mg/dL AST 24 (14-36) U/L ALT 13 (6-35) U/L Alkaline Phosphatase 53 (38-126) U/L Troponin I < 0.012 (0.000-0.034) ng/mL NT-Pro-B Natriuret Pep 81859 H (19.9-100) pg/mL Total Protein 7.4 (6.3-8.2) g/dL Albumin 4.3 (3.5-5.1) g/dL Urine Color Yellow (Yellow) Urine Appearance Clear (Clear) Urine pH 5.0 (5.0-9.0) Ur Specific [place] 1.033 (1.001-1.035) Urine Protein Negative (Negative) mg/dL Urine Glucose (UA) 3+ H (Negative) mg/dL Urine Ketones Trace H (Negative) mg/dL Ur Blood (Man) Trace (Negative) Urine Nitrate Negative (Negative) Urine Bilirubin Negative (Negative) Urine Urobilinogen 1.0 (<2.0) mg/dL Add Ur Microanalysis Reviewed Leukocyte Esterase Rfl Negative (Negative) MOLLY/UL Urine RBC 0-2 (0-2) /hpf Urine WBC 0-5 (0-3) /hpf Ur Squamous Epith Cells None seen (Few) /hpf Urine Bacteria None seen /hpf Urine Casts 3-5 <Fran Pan MD - Last Filed: 01/18/25 02:47> Imaging Data Attestation: I personally reviewed and interpreted this imaging study as follows: < Marti Harden, MANAGER MARKETING COMMUNICATION - Last Filed: 01/18/25 02:28> Radiologist's impression: Patient's CT chest indicates cardiomegaly and pulmonary vascular congestion. Moderate left and smaller right pleural effusions. Moderate cardiomegaly. Pulmonary vascular congestion. Moderate left and smaller right pleural effusions with associated atelectasis. Chronic occlusion left subclavian artery. Unchanged 4 mm noncalcified nodule right lower lobe. Patient's CT abdomen pelvis indicates possible passive hepatic congestion. Small amount of ascites. Anasarca. Atherosclerotic disease. Cholecystectomy. Small amount of ascites. Colonic diverticulosis. Edema in the subcutaneous tissues of the body wall. Osteopenia. 1.4 cm lesion left kidney previously 1.7 cm, likely hemorrhagic cyst. Some mesenteric edema. Dilated IVC and hepatic veins. Mild nodularity of the liver. <Marti Harden, MANAGER MARKETING COMMUNICATION - Last Filed: 01/18/25 02:28> Discharge Plan Discharge Clinical Impression: Acute exacerbation of chronic heart failure, Anasarca, Pleural effusion <Marti Harden APRN - Last Filed: 01/18/25 02:28> Patient Disposition: Still a Patient <Marti Harden APRN - Last Filed: 01/18/25 02:28> Condition: Stable <Marti Harden APRN - Last Filed: 01/18/25 02:28>
[2025-01-17 22:25] LABS: Magnesium 2.4 mg/dL (1.6-2.3)
[2025-01-17 22:38] LABS: NT Pro B Type Natriuretic Pept 17400 pg/mL (19.9-100); Troponin I < 0.012 ng/mL (0.000-0.034)
[2025-01-17 22:54] LABS: INR 2.0; Prothrombin Time 22.0 Seconds (11.1-14.7)
[2025-01-17 22:55] LABS: Partial Thromboplastin Time 31.8 Seconds (22.3-36.8)
[2025-01-17 23:10] LABS: Add Urine Microscopic? YES; Appearance Urine Clear (Clear); Glucose Urine UA 3+ mg/dL (Negative); Leukocyte Esterase Ur Negative LEU/UL (Negative); Need Manual Microscopic Reviewed; Nitrate Urine Negative (Negative); Specific Grav Ur 1.033 (1.001-1.035)
[2025-01-17] MEDS: FUROSEMIDE INJ 40 MG/4 ML VIAL IV PUSH (23:57)
[2025-01-18] VITALS (10 sets, daily range): BP systolic 94–112; BP diastolic 65–79; PULSE 75–87; RESP 14–18; TEMP 36.3–36.7; O2SAT 95–100; BMI 30.4
--- NOTE | 2025-01-18 03:11 | PM.IMHP ---
H&P: HPI History of Present Illness Date/Time: 01/18/25 03:11 Chief Complaint: Abdomen and leg swelling Narrative: 84-year-old female with a past medical history mild restrictive lung disease, coronary artery disease with history of prior [place], systolic heart failure, atrial fibrillation with tachy-hailey syndrome, cardiac pacemaker, untreated hyperlipidemia, ischemic stroke the left middle cerebral artery among other comorbidities who presented to the ER with increased abdominal swelling and lower extremity swelling as well as shortness of breath. The patient was hospitalized in November of 2024 at which time she was having some hypotension and her spironolactone and Lasix were discontinued. She began having more than 10 lb weight gain well diuretics were on hold. She was still taking her home Entresto. She had developed some paroxysmal nocturnal dyspnea at that time and she followed up with Dr. Hernandez on 12/24/2024. She was sent home with instructions to resume her home Lasix (40 mg) and spironolactone (12.5 mg). She was told to monitor weight closely and if her weight came back down to would be started back on her spironolactone only. However several days into with her treatment with the Lasix and spironolactone she began having hypotension again and the medications were stopped. She reports that her shortness of breath and edema is continued to worsen since then the and that she is up another 2 lb compared to what her weight was when she went to see Dr. Hernandez. She also had been on antibiotics with azithromycin earlier in the month for strep throat. She then followed up with her primary care provider's office due to persistent cough. She reported that her sore throat had resolved after treatment with the azithromycin but she was having of cough of frothy clear sputum. She was subsequently discharged home with Augmentin and prednisone. She reports that her cough really has not changed since the starting the prednisone or Augmentin. She she denies any recent fevers. She reports that she is frequently chilled but that is not unusual from her baseline. She has been having paroxysmal nocturnal dyspnea that is worsened over the last 4-5 days. She has noticed some mild swelling in her lower extremities but more so has edema in her thighs and flanks. She reports that she has big bubbles of fluid in her he sides in the dependent tissues. She has had to increase the number of pillows she used over the last week. She denies any recent diarrhea. She has been using probiotics, pre biotics, and Benefiber. She is having bowel movements that are small and soft. She states that she is still having some lower abdominal discomfort. At the time of my physical exam she also had significant right upper quadrant tenderness with palpation of the edge of the liver which was large. She reports that she did have some dry heaves on the and has had some decreased appetite. Review of Systems Review of Systems: 12 systems were reviewed with pertinent positives and negatives per HPI. Except as documented in the HPI, all other systems were reviewed and are negative. [facility] Past Medical History Medical History (Updated 01/18/25 @ 03:49 by Carol Ann Snow DO) Peripheral vascular disease Left subclavian artery occlusion IBS (irritable bowel syndrome) Permanent atrial fibrillation Hyperlipidemia Cerebrovascular accident (07/2022) status post TNK mechanical thrombectomy residual right-sided weakness Chronic anticoagulation Eliquis 5 mg p.o. q.12 hours Coronary artery disease Heart failure with reduced ejection fraction Aortic aneurysm Hypertension Anxiety Surgical History Surgical History History of permanent cardiac pacemaker placement History of coronary artery stent placement History of ERCP History of cholecystectomy Family History Family History Sibling Cancer Diabetes mellitus Heart disease Social History Social History (Updated 01/18/25 @ 05:16 by Carol Ann Snow DO) Social History: The patient is since approximately 2013. She was for 50 years prior to her 's .. Raised 4 daughters and 2 sons. Three of her daughters live nearby and come assist her on a rotating schedule throughout the week. However patient states that she is alone at night. She is estranged from 1 of her sons. Her other son lives in the [facility]. Surrogate medical decision maker: ?All of her children? Code status: DNR/DNI Smoking status: Former smoker Additional smoking assessment comments: quit in 1974 Alcohol intake: never Substance use: never Substance use type: does not use Do You Feel Safe in your Home?: Yes Lack of Transportation: No Lack of Food: Never True Current Housing: I Have Housing Concerned About Future Housing: No Difficulty Paying Gas/Electric Bills: No Difficulty Paying for Meds: No Currently Unemployed: No Education: High School Diploma/GED Difficulty w/ Childcare or Family Care: No Living arrangements: alone Additional living arrangements comments: She lives alone. She has 4 daughters and 2 sons. Occupation/Education: retired Additional occupation/education comments: Retired, previously worked for [employer]. Spiritual care concerns: No Agree to blood products: Yes Meds Home Medications and Allergies Home Medications ?Medication ?Instructions ?Recorded ?Confirmed ?Type aspirin 81 mg tablet,delayed 81 mg PO DAILY #90 tabs 05/26/23 01/18/25 Rx release (Adult Low Dose Aspirin) dapagliflozin propanediol 10 mg 10 mg PO DAILY 01/15/24 01/18/25 History tablet (Farxiga) sacubitril 24 mg-valsartan 26 mg 1 tablet PO BID 06/28/24 01/18/25 History tablet (Entresto) sertraline 25 mg tablet 25 mg PO DAILY #90 tabs 08/17/24 01/18/25 Rx apixaban 5 mg tablet (Eliquis) 5 mg PO Q12H #180 tabs 09/14/24 01/18/25 Rx terbinafine HCl 250 mg tablet 250 mg PO DAILY #84 tabs 11/11/24 01/18/25 Rx cetirizine 10 mg capsule (Zyrtec) 10 mg PO DAILY PRN allergy symptoms 12/28/24 01/18/25 History cholecalciferol (vitamin D3) 50 50 mcg PO DAILY 12/28/24 01/18/25 History mcg (2,000 unit) tablet coenzyme Q10 30 mg capsule 30 mg PO TID 12/28/24 01/18/25 History fluticasone propionate 50 1 spray intranasal DAILY PRN nasal 12/28/24 01/18/25 History mcg/actuation nasal congestion spray,suspension azithromycin 250 mg tablet See Rx Instructions PO .COMPLEX #6 01/14/25 01/18/25 Rx tabs prednisone 20 mg tablet 40 mg (2 x 20 mg) PO DAILY #10 tabs 01/14/25 01/18/25 Rx furosemide 20 mg tablet 40 mg PO QAM 01/18/25 01/18/25 History magnesium 100 mg capsule 100 mg PO HS 01/18/25 01/18/25 History ondansetron 4 mg disintegrating 4 mg PO Q6H PRN nausea and vomiting 01/18/25 01/18/25 History tablet spironolactone 25 mg tablet 12.5 mg PO QAM 01/18/25 01/18/25 History Allergies Allergy/AdvReac Type Severity Reaction Status Date / Time codeine Allergy Intermediate rash and Verified 01/18/25 03:07 hives morphine Allergy Intermediate rash and Verified 01/18/25 03:07 hallucination Penicillins Allergy Intermediate rash and Verified 01/18/25 03:07 hives prednisone Allergy Unknown Unknown Verified 01/18/25 03:07 amiodarone AdvReac Intermediate Abdominal Verified 01/18/25 03:07 Pain [id number] Reductase AdvReac Intermediate pain Verified 01/18/25 03:07 Inhibitor Vital Signs Vital Signs - 24 hr 01/17/25 21:35 01/17/25 21:40 01/17/25 21:42 Temperature Pulse Rate 88 Respiratory Rate 15 Blood Pressure 77/56 L Pulse Oximetry Oxygen Delivery Room Air 01/17/25 22:06 01/17/25 22:09 01/18/25 01:31 Temperature 96.8 F L Pulse Rate 87 Respiratory Rate 14 Blood Pressure 96/69 L 112/77 Pulse Oximetry 99 Oxygen Delivery Room Air Exam Narrative: Weight 70.6 kg BMI 30.4 Const: Other: No acute distress, obese, elderly, lying in bed with the head of the bed at 30 degree with 2 pillows HENMT: Other: Mucous membranes are he moist, no oral pharyngeal erythema, good dentition Eyes: Other: Pupils are equal and reactive, bilateral lens implants noted, no scleral icterus, no conjunctival pallor Neck: Other: Significant JVD up to the angle of the jaw with positive hepatojugular reflux, no lymphadenopathy Resp: Other: Crackles anterior lung bases, no increased work of breathing, posterior lungs not examined due to patient positioning and weakness Cardio: Other: Regular rate, 2+ bilateral radial pedal pulses, positive JVD up to the angle of the jaw GI: Other: Mild minimal tenderness to the lower abdomen more significant tenderness to palpation of the liver which is 2 cm below the costal margin, normoactive bowel sounds, abdominal wall anasarca : Other: POA catheter in place with approximately 150 mL of dark yellow urine present Skin: Other: Generalized pallor, non jaundice Neuro: Other: Alert oriented x4, speech is clear, no facial asymmetry, moves all extremities equally Extrem: Other: Pitting edema up into the thighs and buttocks and flanks, he mild edema to the lower extremities that is nonpitting Psych: Other: Appropriate mood and affect, pleasant and cooperative, intact judgment and insight H&P: Results Labs Labs: Laboratory Tests 01/17/25 21:55 01/17/25 21:55 01/17/25 01/17/25 01/17/25 21:55 22:35 22:50 WBC 7.7 RBC 4.43 Hgb 14.1 Hct 45.5 MCV 102.7 H MCH 31.8 MCHC 31.0 L RDW 14.9 H Plt Count 283 D MPV 10.4 Immature Gran % (Auto) 0.5 Neut % (Auto) 70.8 Lymph % (Auto) 18.1 L Levy % (Auto) 8.2 Eos % (Auto) 1.4 Baso % (Auto) 1.0 Lymph # (Auto) 1.39 Levy # (Auto) 0.6 Eos # (Auto) 0.1 Baso # (Auto) 0.1 Abs Immat Gran (auto) 0.04 H Absolute Neuts (auto) 5.4 Absolute Nucleated RBC 0.000 Nucleated RBC % 0.0 PT 22.0 H INR 2.0 APTT 31.8 Sodium 138 Potassium 3.6 Chloride 102 Carbon Dioxide 24 Anion Gap 12 BUN 23 H Creatinine 1.04 H Estim Creat Clear Calc 32 Estimated GFR 50 L Glucose 115 H Lactic Acid 2.2 H Calcium 9.0 Magnesium 2.4 H Total Bilirubin 0.9 AST 24 ALT 13 Alkaline Phosphatase 53 Troponin I < 0.012 NT-Pro-B Natriuret Pep 38743 H Total Protein 7.4 Albumin 4.3 Urine Color Yellow Urine Appearance Clear Urine pH 5.0 Ur Specific [place] 1.033 Urine Protein Negative Urine Glucose (UA) 3+ H Urine Ketones Trace H Ur Blood (Man) Trace Urine Nitrate Negative Urine Bilirubin Negative Urine Urobilinogen 1.0 Add Ur Microanalysis Reviewed Leukocyte Esterase Rfl Negative Urine RBC 0-2 Urine WBC 0-5 Ur Squamous Epith Cells None seen Urine Bacteria None seen Urine Casts 3-5 Chest x-ray: Personally reviewed and interpreted. Radiologic interpretation pending. Increase in size of left pleural effusion right pleural effusion appears stable, cardiomegaly, pacemaker with leads in appropriate position EKG: Electronic ventricular pacemaker. EKG machine reads as T elevation in leads 1 aVL V5 and V6 I do not appreciate this compared to patient's prior EKG EKG appears stable. QTC 540 which is improved compared to prior EKG in March. Cardiology interpretation pending Assessment and Plan Assessment and plan (1) Acute on chronic systolic CHF (congestive heart failure): Code(s): I50.23 - Acute on chronic systolic (congestive) heart failure Status: Acute (2) Hypotension: Qualifiers: Hypotension type: hypotension due to drug Qualified Code(s): I95.2 - Hypotension due to drugs Code(s): I95.9 - Hypotension, unspecified Status: Acute (3) Abdominal pain: Code(s): R10.9 - Unspecified abdominal pain Status: Acute (4) Pleural effusion: Code(s): J90 - Pleural effusion, not elsewhere classified Status: Acute (5) Anasarca: Code(s): R60.1 - Generalized edema Status: Acute (6) Lactic acidosis: Code(s): E87.20 - Acidosis, unspecified Status: Acute (7) Chronic anticoagulation: Code(s): Z79.01 - retirement (current) use of anticoagulants Status: Acute (8) Acute kidney injury: Code(s): N17.9 - Acute kidney failure, unspecified Status: Acute Plan The patient has been admitted for acute CHF exacerbation. Her CHF is difficult to treat given history of hypotension diuretic use. At this point I will start the patient on Lasix 20 mg p.o. daily to start in the morning with spouse lack tone 12.5 mg p.o. daily. Will consult patient's mill tender washing for further recommendations on management. The patient is not on any beta-blair therapy due to her history hypotension and the fact that she is chronically pacemaker dependent for her AFib. Will continue home Entresto. Will monitor strict I&O's and daily weights. Will continue home Farxiga. Patient also has lactic acidosis and mild acute kidney injury likely secondary to buttock passive congestion of the liver and hypoperfusion to liver and or kidneys due to hypotension and third-spacing of fluid. Will repeat lactic acid level and check repeat electrolyte panel with a.m. labs. Patient was recently started on Augmentin and prednisone as outpatient for possible URI and or bronchitis. Patient's symptoms seem more consistent with CHF at this time given imaging findings. Will stop prednisone as this will only increased fluid retention and will stop antibiotic therapy as the patient's cough is likely more due to pulmonary edema fluid overload. Patient has been admitted as observation status. MEDICAL DECISION MAKING NARRATIVE -Spoke with the ED provider in detail regarding patient's evaluation, workup and management -Patient seen and examined at bedside -Collaborated with patient's nurse at the bedside in detail and addressed all concerns -Labs, electrolytes, radiology, investigations and test results personally reviewed and interpreted unless otherwise specified -ED/Consult/Nursing/Ancilliary notes on the chart reviewed and appreciated -Spoke with patient at bedside and diagnosis and plan of care was discussed. All questions answered. Quality VTE Prophylaxis VTE prophylaxis: pharmacologic ordered (Continue home Eliquis) Hospitalist [facility] Advance Care Plan I have confirmed that the patient's Advanced Care Plan is present, code status is documented, or surrogate decision maker is listed in patient medical record.: Yes Medication Reconciliation I have utilized all available resources to obtain, update and review the patients current medications (includes all prescriptions, OTC, herbals, cannabis, and nutritional supplements).: Yes
--- NOTE | 2025-01-18 03:12 | ADMGEN ---
This patient, Abena Giron, was admitted to Medical Room 342-01. Patient/family oriented to hospital policies and general routines including ID bracelet, bed and alarms, visiting hours, pain management, procedures, bathroom and other care routines, personal items, smoking policy, room service/diet, and visiting hours. Information on how to activate the Rapid Response Team has been discussed. Patient/Family are encouraged to report perceived risks to care and to ask questions if they do not understand what they are told or what they should do.
[2025-01-18 05:29] LABS: Anion Gap 10 mmol/L (4-12); Blood Urea Nitrogen 22 mg/dL (7-17); Calcium 8.5 mg/dL (8.4-10.2); Carbon Dioxide 26 mmol/L (22-30); Chloride 102 mmol/L (98-107); Estimated CRCL calculation 34 ml/min; Estimated Glomerular Filt Rate 57; Glucose 113 mg/dL (65-110); Potassium 3.5 mmol/L (3.4-5.0); Sodium 138 mmol/L (137-145)
--- NOTE | 2025-01-18 08:13 | P.PNIM_ITS ---
Progress Note: A&P Assessment and Plan (1) Acute on chronic systolic CHF (congestive heart failure): Code(s): I50.23 - Acute on chronic systolic (congestive) heart failure Status: Acute Assessment and Plan: BNP 90321 CHF is difficult to treat given history of hypotension diuretic use Cardiology consulted pending recommendations Diuretics per Cardiology Daily weights Fluid Restriction (2) Hypotension: Qualifiers: Hypotension type: hypotension due to drug Qualified Code(s): I95.2 - Hypotension due to drugs Code(s): I95.9 - Hypotension, unspecified Status: Acute Assessment and Plan: Hold antihypertensives while patient is being aggressively diuresed (3) Pleural effusion: Code(s): J90 - Pleural effusion, not elsewhere classified Status: Acute Assessment and Plan: No need for thoracentesis this time Manage her diuretics (4) Kidney mass: Code(s): N28.89 - Other specified disorders of kidney and ureter Status: Acute Assessment and Plan: 1.8 cm left kidney mass, most likely a hemorrhagic cyst. Renal cell carcinoma is not excluded. 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 Patient's breathing is better this morning, does have lower extremity edema PT and OT ordered Review of Systems Review of Systems: 12 systems were reviewed and are negativ e except for as per HPI. Exam Narrative: General: well appearing, appears stated age. HEENT: normocephalic, atraumatic. Mucous membranes moist. EOMI, PERRLA, bilateral sclera anicteric, no conjunctival injection. Neck supple without JVD, lymphadenopathy, or bruit. Respiratory: clear to ascultation bilaterally. No rales/rhonic/wheezes. Cardiovascular: Regular rate and rhythm, normal S1-S2 upon ascultation. No murmurs, rubs, or clicks. PMI is nondisplaced, capillary refill less than 3 second. Abdomen: Soft, round, no pulsatile masses, nondistended and nontender. No rebound, no guarding. No CVA tenderness, no hepatosplenomegaly. Bowel sounds present to all four quadrants. No high pitch or tinkling sounds, resonant to percussion. Extremities: No cyanosis, clubbing. Pulses are palpable 2/2. Two to 3+ lower extremity edema up to shins Neuro: Alert and orientated x 4. PERRLA. Cranial nerves 2-12 intact without focal deficit. Skin: Warm, dry, and intact, without rash, erythema, or lesion. Psych: pleasant, cooperative, normal speech, normal affect, no hallucinations, no dysarthia Objective Data Vital Signs Vital Signs: Vital Signs - 24 hr 01/17/25 21:35 01/17/25 21:40 01/17/25 21:42 Temperature Pulse Rate 88 Respiratory Rate 15 Blood Pressure 77/56 L Pulse Oximetry Oxygen Delivery Room Air 01/17/25 22:06 01/17/25 22:09 01/18/25 01:31 Temperature 96.8 F L Pulse Rate 87 Respiratory Rate 14 Blood Pressure 96/69 L 112/77 Pulse Oximetry 99 Oxygen Delivery Room Air 01/18/25 03:44 01/18/25 04:00 01/18/25 04:12 Temperature 98.1 F Pulse Rate 87 76 78 Respiratory Rate 14 16 Blood Pressure 102/79 Pulse Oximetry 99 100 Oxygen Delivery Room Air Intake/Output Intake/Output: Intake & Output 01/15/25 01/16/25 01/17/25 01/18/25 23:59 23:59 23:59 23:59 Output Total 50 Balance -50 Meds/Results Medications: Active Medications Generic Name Dose Route Start Last Admin Trade Name Freq PRN Reason Stop Dose Admin Apixaban 5 mg 01/18/25 09:00 Apixaban 5 Mg Tablet PO Q12HR [facility] Aspirin 81 mg 01/18/25 09:00 Aspirin 81 Mg Enteric Tablet PO DAILY [facility] Empagliflozin 25 mg 01/18/25 09:00 Empagliflozin 25 Mg Tablet BY MOUTH DAILY [facility] Fluticasone Propionate 2 spray 01/18/25 03:41 Fluticasone Propionate 0.05% Na Spr 16 Gm Btl (*Bkc) NASAL DAILY PRN Nasal Congestion Furosemide 20 mg 01/18/25 09:00 Furosemide 20 Mg Tablet PO DAILY [facility] Loratadine 10 mg 01/18/25 04:08 Loratadine 10 Mg Tablet PO DAILY PRN allergy symptoms Magnesium Oxide 200 mg 01/18/25 21:00 Magnesium Oxide 200 Mg Tablet PO HS [facility] Sacubitril/Valsartan 1 tab 01/18/25 09:00 Sacubitril/Valsartan 24-26 Mg Tablet PO Q12HR [facility] Sertraline HCl 25 mg 01/18/25 09:00 Sertraline Hcl 25 Mg Tablet PO DAILY [facility] Spironolactone 12.5 mg 01/18/25 09:00 Spironolactone 12.5 Mg Tablet PO QAM [facility] Terbinafine HCl 250 mg 01/18/25 09:00 Terbinafine Hcl 250 Mg Tablet PO DAILY [facility] Vitamin D 50 mcg 01/18/25 09:00 Cholecalciferol (Vitamin D3) 25 Mcg (1,000 Units) Tablet PO DAILY [facility] Radiology Results: ITS Impressions Chest X-Ray 01/18/25 06:35 IMPRESSION: 1. Large left and small right pleural effusions. Chest/Abdomen/Pelvis CT 01/18/25 07:03 IMPRESSION: 1. Small right and moderate-sized left pleural effusions. 2. 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 3. 1.8 cm left kidney mass, most likely a hemorrhagic cyst. Renal cell carcinoma is not excluded. Abdomen CT without and with contrast is recommended.. Labs Labs: Laboratory Results - last 24 hr 01/17/25 01/17/25 01/17/25 21:55 22:35 22:50 WBC 7.7 RBC 4.43 Hgb 14.1 Hct 45.5 MCV 102.7 H MCH 31.8 MCHC 31.0 L RDW 14.9 H Plt Count 283 D MPV 10.4 Immature Gran % (Auto) 0.5 Neut % (Auto) 70.8 Lymph % (Auto) 18.1 L [place] % (Auto) 8.2 Eos % (Auto) 1.4 Baso % (Auto) 1.0 Lymph # (Auto) 1.39 [place] # (Auto) 0.6 Eos # (Auto) 0.1 Baso # (Auto) 0.1 Abs Immat Gran (auto) 0.04 H Absolute Neuts (auto) 5.4 Absolute Nucleated RBC 0.000 Nucleated RBC % 0.0 PT 22.0 H INR 2.0 APTT 31.8 Sodium 138 Potassium 3.6 Chloride 102 Carbon Dioxide 24 Anion Gap 12 BUN 23 H Creatinine 1.04 H Estim Creat Clear Calc 32 Estimated GFR 50 L Glucose 115 H Lactic Acid 2.2 H Calcium 9.0 Magnesium 2.4 H Total Bilirubin 0.9 AST 24 ALT 13 Alkaline Phosphatase 53 Troponin I < 0.012 NT-Pro-B Natriuret Pep 85869 H Total Protein 7.4 Albumin 4.3 Urine Color Yellow Urine Appearance Clear Urine pH 5.0 Ur Specific [place] 1.033 Urine Protein Negative Urine Glucose (UA) 3+ H Urine Ketones Trace H Ur Blood (Man) Trace Urine Nitrate Negative Urine Bilirubin Negative Urine Urobilinogen 1.0 Add Ur Microanalysis Reviewed Leukocyte Esterase Rfl Negative Urine RBC 0-2 Urine WBC 0-5 Ur Squamous Epith Cells None seen Urine Bacteria None seen Urine Casts 3-5 01/18/25 04:48 WBC RBC Hgb Hct MCV MCH MCHC RDW Plt Count MPV Immature Gran % (Auto) Neut % (Auto) Lymph % (Auto) [place] % (Auto) Eos % (Auto) Baso % (Auto) Lymph # (Auto) [place] # (Auto) Eos # (Auto) Baso # (Auto) Abs Immat Gran (auto) Absolute Neuts (auto) Absolute Nucleated RBC Nucleated RBC % PT INR APTT Sodium 138 Potassium 3.5 Chloride 102 Carbon Dioxide 26 Anion Gap 10 BUN 22 H Creatinine 0.94 Estim Creat Clear Calc 34 Estimated GFR 57 L Glucose 113 H Lactic Acid 2.0 Calcium 8.5 Magnesium Total Bilirubin AST ALT Alkaline Phosphatase Troponin I NT-Pro-B Natriuret Pep Total Protein Albumin Urine Color Urine Appearance Urine pH Ur Specific [place] Urine Protein Urine Glucose (UA) Urine Ketones Ur Blood (Man) Urine Nitrate Urine Bilirubin Urine Urobilinogen Add Ur Microanalysis Leukocyte Esterase Rfl Urine RBC Urine WBC Ur Squamous Epith Cells Urine Bacteria Urine Casts Quality VTE Prophylaxis VTE prophylaxis: mechanical ordered
[2025-01-18] MEDS: CHOLECALCIFEROL (VITAMIN D3) 25 MCG (1,000 UNITS) TABLET 50 MCG PO (08:47)
[2025-01-18] MEDS: FUROSEMIDE 20 MG TABLET PO (08:47)
[2025-01-18] MEDS: ASPIRIN 81 MG ENTERIC TABLET PO (08:47)
[2025-01-18] MEDS: EMPAGLIFLOZIN 25 MG TABLET BY MOUTH (08:47)
[2025-01-18] MEDS: TERBINAFINE HCL 250 MG TABLET PO (08:47)
[2025-01-18] MEDS: APIXABAN 5 MG TABLET PO ×2 (08:47→20:33)
[2025-01-18] MEDS: SERTRALINE HCL 25 MG TABLET PO (08:47)
--- NOTE | 2025-01-18 11:58 | PM.CNCAR ---
Assessment and Plan Assessment and plan (1) Acute on chronic systolic CHF (congestive heart failure): Code(s): I50.23 - Acute on chronic systolic (congestive) heart failure Status: Acute (2) Hypotension: Qualifiers: Hypotension type: hypotension due to drug Qualified Code(s): I95.2 - Hypotension due to drugs Code(s): I95.9 - Hypotension, unspecified Status: Acute Plan 84-year-old lady with severe ischemic cardiomyopathy who have also has chronic atrial fibrillation rhythm is paced. She enters the hospital with some abdominal pain which I do not believe the cardiac problem. Her hemodynamic management as mentioned above has been tenuous but she has had significant he symptomatic benefit from Entresto and I would like to keep this drug in place. I will resume this today. The despite her low blood pressure she has not been symptomatic with this in the way of lightheadedness, near-syncope etc.. I am going to give her 1 more dose of IV furosemide today and assess her status again tomorrow. Explained to the patient and her family that we should not be surprised by asymptomatic hypotension and given her end-stage cardiomyopathy we should not be withholding medications for these reasons. Mannie Hernandez MD [facility] History of Present Illness History of Present Illness Consult date/time: 01/18/25 11:58 Reason For Visit: CHF exacerbation Narrative: this is an 84-year-old woman who I know with significant ischemic cardiomyopathy, chronic atrial fibrillation and heart failure. I am seeing her at the request of the hospitalist for assistance with her medical management regarding her left ventricular dysfunction. She was hospitalized yesterday with abdominal pain. She has had a couple of hospitalizations recently at this hospital with some abdominal pain she has been told that the impression is that she has diverticulosis. She is not reporting symptoms of lower extremity edema or significant shortness of breath. She is concerned that she is retaining fluid because of increasing abdominal girth and increasing weight. In addition to that a potted admission she her blood pressure was low and we been asked to participate in her care for these reasons. She is comfortable at the time I came in the room to see her in does not have any other complaints. She has a history of heart disease dating back to 2014 when she sustained a myocardial infarction that was treated with emergency PCI. That was all done at another facility. 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 After all of this she became a patient of our practice and was found to be in atrial fibrillation. Because of AV node dysfunction she was in a paced rhythm and had no symptoms of her atrial fibrillation. The patient refused anticoagulation therefore she could not be cardioverted she also has consistently refused medical anti lipid therapy in the form of statins. She in 2022 was seen at [facility] with an ischemic stroke. Obviously that was not surprising. She was found have a very low ejection fraction in the range of 10-15% at that time. Medical therapy for this was initiated with the form of losartan and metoprolol. At a rehab facility these drugs were stopped because of asymptomatic hypotension. When I saw her in follow-up in the office in 2023 she was not very unstable but was reporting symptoms compatible with low cardiac output. I placed her on medical therapy with Entresto which has caused asymptomatic hypotension but has resulted in a much better functional capacity for her and much better symptomatic relief of her low cardiac output symptoms. When I saw the patient in the office earlier this month she did have a [id number] amount of edema. Had been taken off of diuretics by her physicians again because of hypotension. I recommended resuming the furosemide and spironolactone. Upon arrival in the hospital here she is once again hypotensive at times with systolic pressures below 80 but she is asymptomatic. Because of her age, comorbidities very low ejection fraction she has appropriately chosen DNR status. Despite all this she seems to be in very good spirits today. Review of Systems Constitutional: Constitutional: Reports fatigue and Reports lethargy Eyes: Eyes: Reports no additional eye complaints ENT: Reports system reviewed and no additional complaints, except as documented Cardiovascular: Cardiovascular: Reports as per HPI Respiratory: Respiratory: Reports no additional respiratory complaints Gastrointestinal: Gastrointestinal: Reports as per HPI and Reports abdominal pain Genitourinary: Genitourinary: Reports no additional female genitourinary complaints Musculoskeletal: Musculoskeletal: Reports no additional musculoskeletal complaints Integumentary/Breasts: Skin/Breast: Reports system reviewed and no additional complaints, except as docu Neurologic: Reports system reviewed and no additional complaints, except as documented Endocrine: Endocrine: Reports no additional endocrine complaints Hematologic/Lymphatic: Hematologic/Lymphatic: Reports no additional hematologic/lymphatic complaints Allergic/Immunologic: Allergic/Immunologic: Reports no additional allergic/immunologic complaints [facility] Past Medical History Medical History (Updated 01/18/25 @ 08:24 by Mellissa Singh APRN) Peripheral vascular disease Left subclavian artery occlusion IBS (irritable bowel syndrome) Permanent atrial fibrillation Hyperlipidemia Cerebrovascular accident (07/2022) status post TNK mechanical thrombectomy residual right-sided weakness Chronic anticoagulation Eliquis 5 mg p.o. q.12 hours Coronary artery disease Heart failure with reduced ejection fraction Aortic aneurysm Hypertension Anxiety Surgical History Surgical History History of permanent cardiac pacemaker placement History of coronary artery stent placement History of ERCP History of cholecystectomy Family History Family History Sibling Cancer Diabetes mellitus Heart disease Social History Social History (Updated 01/18/25 @ 05:16 by Carol Ann Snow DO) Social History: The patient is since approximately 2013. She was for 50 years prior to her 's .. Raised 4 daughters and 2 sons. Three of her daughters live nearby and come assist her on a rotating schedule throughout the week. However patient states that she is alone at night. She is estranged from 1 of her sons. Her other son lives in the [facility]. Surrogate medical decision maker: ?All of her children? Code status: DNR/DNI Smoking status: Former smoker Additional smoking assessment comments: quit in 1974 Alcohol intake: never Substance use: never Substance use type: does not use Do You Feel Safe in your Home?: Yes Lack of Transportation: No Lack of Food: Never True Current Housing: I Have Housing Concerned About Future Housing: No Difficulty Paying Gas/Electric Bills: No Difficulty Paying for Meds: No Currently Unemployed: No Education: High School Diploma/GED Difficulty w/ Childcare or Family Care: No Living arrangements: alone Additional living arrangements comments: She lives alone. She has 4 daughters and 2 sons. Occupation/Education: retired Additional occupation/education comments: Retired, previously worked for [employer]. Spiritual care concerns: No Agree to blood products: Yes Meds Home Medications and Allergies Home Medications ?Medication ?Instructions ?Recorded ?Confirmed ?Type aspirin 81 mg tablet,delayed 81 mg PO DAILY #90 tabs 05/26/23 01/18/25 Rx release (Adult Low Dose Aspirin) dapagliflozin propanediol 10 mg 10 mg PO DAILY 01/15/24 01/18/25 History tablet (Farxiga) sacubitril 24 mg-valsartan 26 mg 1 tablet PO BID 06/28/24 01/18/25 History tablet (Entresto) sertraline 25 mg tablet 25 mg PO DAILY #90 tabs 08/17/24 01/18/25 Rx apixaban 5 mg tablet (Eliquis) 5 mg PO Q12H #180 tabs 09/14/24 01/18/25 Rx terbinafine HCl 250 mg tablet 250 mg PO DAILY #84 tabs 11/11/24 01/18/25 Rx cetirizine 10 mg capsule (Zyrtec) 10 mg PO DAILY PRN allergy symptoms 12/28/24 01/18/25 History cholecalciferol (vitamin D3) 50 50 mcg PO DAILY 12/28/24 01/18/25 History mcg (2,000 unit) tablet coenzyme Q10 30 mg capsule 30 mg PO TID 12/28/24 01/18/25 History fluticasone propionate 50 1 spray intranasal DAILY PRN nasal 12/28/24 01/18/25 History mcg/actuation nasal congestion spray,suspension azithromycin 250 mg tablet See Rx Instructions PO .COMPLEX #6 01/14/25 01/18/25 Rx tabs prednisone 20 mg tablet 40 mg (2 x 20 mg) PO DAILY #10 tabs 01/14/25 01/18/25 Rx furosemide 20 mg tablet 40 mg PO QAM 01/18/25 01/18/25 History magnesium 100 mg capsule 100 mg PO HS 01/18/25 01/18/25 History ondansetron 4 mg disintegrating 4 mg PO Q6H PRN nausea and vomiting 01/18/25 01/18/25 History tablet spironolactone 25 mg tablet 12.5 mg PO QAM 01/18/25 01/18/25 History Allergies Allergy/AdvReac Type Severity Reaction Status Date / Time codeine Allergy Intermediate rash and Verified 01/18/25 03:07 hives morphine Allergy Intermediate rash and Verified 01/18/25 03:07 hallucination Penicillins Allergy Intermediate rash and Verified 01/18/25 03:07 hives prednisone Allergy Unknown Unknown Verified 01/18/25 03:07 amiodarone AdvReac Intermediate Abdominal Verified 01/18/25 03:07 Pain [id number]-BlP Reductase AdvReac Intermediate pain Verified 01/18/25 03:07 Inhibitor Vital Signs Vital Signs - 24 hr 01/17/25 21:35 01/17/25 21:40 01/17/25 21:42 Temperature Pulse Rate 88 Respiratory Rate 15 Blood Pressure 77/56 L Pulse Oximetry Oxygen Delivery Room Air 01/17/25 22:06 01/17/25 22:09 01/18/25 01:31 Temperature 36.0 C L Pulse Rate 87 Respiratory Rate 14 Blood Pressure 96/69 L 112/77 Pulse Oximetry 99 Oxygen Delivery Room Air 01/18/25 03:44 01/18/25 04:00 01/18/25 04:12 Temperature 36.7 C Pulse Rate 87 76 78 Respiratory Rate 14 16 Blood Pressure 102/79 Pulse Oximetry 99 100 Oxygen Delivery Room Air 01/18/25 08:00 Temperature Pulse Rate Respiratory Rate Blood Pressure Pulse Oximetry Oxygen Delivery Room Air Exam Const: General: comfortable and no acute distress Other: Pleasant elderly lady currently in no distress HENMT: Mouth: Yes moist mucous membranes Eyes: Sclera: sclerae normal Neck: Neck: supple and no JVD Resp: Effort & Inspection: normal respiratory effort Auscultation: clear to auscultation bilaterally Cardio: Rate: regular rate Rhythm: regular rhythm Other: paced rate GI: GI Palp: Yes Soft to palpation Auscultation: normal bowel sounds Skin: General skin exam: normal color Neuro: Other: alert and oriented x3 Extrem: Other: mild soft pitting edema Results Labs and Meds 01/17/25 21:55 01/18/25 04:48 Lab results: Cardiac Enzymes 01/17/25 Range/Units 21:55 AST 24 (14-36) U/L Troponin I < 0.012 (0.000-0.034) ng/mL Coagulation 01/17/25 Range/Units 21:55 PT 22.0 H (11.1-14.7) Seconds APTT 31.8 (22.3-36.8) Seconds CBC 01/17/25 Range/Units 21:55 WBC 7.7 (4.5-10.0) K/mm3 RBC 4.43 (4.2-5.4) M/mm3 Hgb 14.1 (12.0-15.0) g/dL Hct 45.5 (37.0-47.0) % Plt Count 283 D (150-375) k/mm3 Lymph # (Auto) 1.39 (0.9-3.2) K/mm3 [place] # (Auto) 0.6 (0.1-0.6) K/mm3 Eos # (Auto) 0.1 (0-0.3) K/mm3 Baso # (Auto) 0.1 (0.0-0.1) K/mm3 Comprehensive Metabolic Panel 01/17/25 01/18/25 Range/Units 21:55 04:48 Sodium 138 138 (137-145) mmol/L Potassium 3.6 3.5 (3.4-5.0) mmol/L Chloride 102 102 (98-107) mmol/L Carbon Dioxide 24 26 (22-30) mmol/L BUN 23 H 22 H (7-17) mg/dL Creatinine 1.04 H 0.94 (0.7-1.0) mg/dL Glucose 115 H 113 H (65-110) mg/dL Calcium 9.0 8.5 (8.4-10.2) mg/dL AST 24 (14-36) U/L ALT 13 (6-35) U/L Alkaline Phosphatase 53 (38-126) U/L Total Protein 7.4 (6.3-8.2) g/dL Albumin 4.3 (3.5-5.1) g/dL Intake and Output 01/17/25 01/18/25 01/18/25 23:59 07:59 15:59 Intake Total 240 Output Total 50 Balance -50 240 Intake: Oral 240 Output: Urine 50 Other: Number of Bowel Movements Today 1 Patient Weight 01/18/25 23:59 Weight 70.6 kg
[2025-01-18] MEDS: FUROSEMIDE INJ 40 MG/4 ML VIAL 20 MG IV PUSH (13:05)
--- NOTE | 2025-01-18 13:13 | ECG_ITS ---
Test Date: 2025-01-18 13:25:30 Measurements Intervals [place] Rate: 87 P: 0 WI: 0 QRS: -63 QRSD: 184 T: 105 QT: 434 QTc: 525 Interpretive Statements ELECTRONIC VENTRICULAR PACEMAKER BASELINE ARTIFACT- I, III ,AVR, V1-V3 NO FURTHER INTERPRETATION IS POSSIBLE ATYPICAL ECG Compared to ECG 01/17/2025 21:42:22 No significant changes Electronically Signed On 01-18-2025 13:57:16 CDT by Solis Page D.O.
--- NOTE | 2025-01-18 15:22 | PM.EVENT ---
Event Note Event Note Event Note: QTC on EKG 525 avoid any QTC prolonging medications
[2025-01-18] MEDS: ACETAMINOPHEN 325 MG TABLET 650 MG PO (17:21)
[2025-01-18] MEDS: MAGNESIUM OXIDE 200 MG TABLET PO (20:33)
[2025-01-18] MEDS: SENNA/DOCUSATE SODIUM TABLET 1 TAB PO (20:33)
[2025-01-18] MEDS: SACUBITRIL/VALSARTAN 24-26 MG TABLET 1 TAB PO (21:26)
[2025-01-19] VITALS (10 sets, daily range): BP systolic 101–106; BP diastolic 66–84; PULSE 76–82; RESP 16–18; TEMP 36.1–36.5; O2SAT 95–97
--- NOTE | 2025-01-19 07:08 | WPDCNPSYCH ---
Assessment and Plan Assessment and plan (1) Generalized anxiety disorder: Code(s): F41.1 - Generalized anxiety disorder Status: Acute (2) Panic disorder: Code(s): F41.0 - Panic disorder [episodic paroxysmal anxiety] Status: Acute Plan Patient admitted to the hospital for CHF exacerbation with known psychiatric history of anxiety and panic disorder. Appears to be stable on home dose of sertraline 25mg daily. Noted from yesterday QTc elevated at 525. -Recommend continuing sertraline 25mg daily for anxiety management --sertraline is considered to have a very low risk of significant QTc prolongation, considered one of the safest SSRI medications in regard to heart rhythm defects -Patient denies further psychiatric complaints or concerns, follow up with PCP for continued management -Psychiatry will follow along as needed, please call for questions or concerns regarding this patient HPI Data of Consult Date/Time: 01/19/25 07:08 Requesting Physician: Carol Ann Snow DO Primary Care Provider: Jaleel Mcgovern MD Consult Narrative Narrative: Abena Giron is a 84 year old female admitted to the hospital on 01/18/2025 with a CHF exacerbation. Psychiatry has been consulted for assistance with medication management. Abena is calm and cooperative this morning upon interview, she is A/O x 4. She reports she has never seen a psychiatrist or counselor/therapist in the past. However, her PCP does prescribe her sertraline 25mg daily for management of panic attacks and anxiety. Her anxiety and panic attacks initially started about 20 years ago, shortly after her mother . This is when she was initially started on sertraline, however eventually weaned off after a couple of years. Most recently, she has been taking sertraline 25mg for about 2 years consecutively to manage her panic attacks. She reports that sertraline is effective at keeping panic attacks and general anxiety at bay, citing her most recent panic attack about a year ago. She is compliant with sertraline at home and denies side effects. Denies a history of depression; denies feeling down, sad, depressed or hopeless. Denies current suicidal ideation or history of suicidal thoughts or behaviors. No history of psychosis, kayleen. No history of inpatient behavioral health admissions. Sleep is good, which she takes magnesium for at home- getting about 7-8 hours nightly. Review of Systems Psychiatric: Psychiatric: Reports no additional psychiatric complaints and Reports as per HPI PMFSH Past Medical History Medical History (Updated 01/19/25 @ 07:17 by Cece Christy APRN) Panic disorder Generalized anxiety disorder Peripheral vascular disease Left subclavian artery occlusion IBS (irritable bowel syndrome) Permanent atrial fibrillation Hyperlipidemia Cerebrovascular accident (07/2022) status post TNK mechanical thrombectomy residual right-sided weakness Chronic anticoagulation Eliquis 5 mg p.o. q.12 hours Coronary artery disease Heart failure with reduced ejection fraction Aortic aneurysm Hypertension Anxiety Surgical History Surgical History History of permanent cardiac pacemaker placement History of coronary artery stent placement History of ERCP History of cholecystectomy Family History Family History Sibling Cancer Diabetes mellitus Heart disease Social History Social History (Updated 01/18/25 @ 05:16 by Carol Ann Snow DO) Social History: The patient is since approximately 2013. She was for 50 years prior to her 's .. Raised 4 daughters and 2 sons. Three of her daughters live nearby and come assist her on a rotating schedule throughout the week. However patient states that she is alone at night. She is estranged from 1 of her sons. Her other son lives in the [facility]. Surrogate medical decision maker: ?All of her children? Code status: DNR/DNI Smoking status: Former smoker Additional smoking assessment comments: quit in 1974 Alcohol intake: never Substance use: never Substance use type: does not use Do You Feel Safe in your Home?: Yes Lack of Transportation: No Lack of Food: Never True Current Housing: I Have Housing Concerned About Future Housing: No Difficulty Paying Gas/Electric Bills: No Difficulty Paying for Meds: No Currently Unemployed: No Education: High School Diploma/GED Difficulty w/ Childcare or Family Care: No Living arrangements: alone Additional living arrangements comments: She lives alone. She has 4 daughters and 2 sons. Occupation/Education: retired Additional occupation/education comments: Retired, previously worked for [employer]. Spiritual care concerns: No Agree to blood products: Yes Meds Home Medications and Allergies Home Medications ?Medication ?Instructions ?Recorded ?Confirmed ?Type aspirin 81 mg tablet,delayed 81 mg PO DAILY #90 tabs 05/26/23 01/18/25 Rx release (Adult Low Dose Aspirin) dapagliflozin propanediol 10 mg 10 mg PO DAILY 01/15/24 01/18/25 History tablet (Farxiga) sacubitril 24 mg-valsartan 26 mg 1 tablet PO BID 06/28/24 01/18/25 History tablet (Entresto) sertraline 25 mg tablet 25 mg PO DAILY #90 tabs 08/17/24 01/18/25 Rx apixaban 5 mg tablet (Eliquis) 5 mg PO Q12H #180 tabs 09/14/24 01/18/25 Rx terbinafine HCl 250 mg tablet 250 mg PO DAILY #84 tabs 11/11/24 01/18/25 Rx cetirizine 10 mg capsule (Zyrtec) 10 mg PO DAILY PRN allergy symptoms 12/28/24 01/18/25 History cholecalciferol (vitamin D3) 50 50 mcg PO DAILY 12/28/24 01/18/25 History mcg (2,000 unit) tablet coenzyme Q10 30 mg capsule 30 mg PO TID 12/28/24 01/18/25 History fluticasone propionate 50 1 spray intranasal DAILY PRN nasal 12/28/24 01/18/25 History mcg/actuation nasal congestion spray,suspension azithromycin 250 mg tablet See Rx Instructions PO .COMPLEX #6 01/14/25 01/18/25 Rx tabs prednisone 20 mg tablet 40 mg (2 x 20 mg) PO DAILY #10 tabs 01/14/25 01/18/25 Rx furosemide 20 mg tablet 40 mg PO QAM 01/18/25 01/18/25 History magnesium 100 mg capsule 100 mg PO HS 01/18/25 01/18/25 History ondansetron 4 mg disintegrating 4 mg PO Q6H PRN nausea and vomiting 01/18/25 01/18/25 History tablet spironolactone 25 mg tablet 12.5 mg PO QAM 01/18/25 01/18/25 History Allergies Allergy/AdvReac Type Severity Reaction Status Date / Time codeine Allergy Intermediate rash and Verified 01/18/25 03:07 hives morphine Allergy Intermediate rash and Verified 01/18/25 03:07 hallucination Penicillins Allergy Intermediate rash and Verified 01/18/25 03:07 hives prednisone Allergy Unknown Unknown Verified 01/18/25 03:07 amiodarone AdvReac Intermediate Abdominal Verified 01/18/25 03:07 Pain [id number]-[id number]-TiI Reductase AdvReac Intermediate pain Verified 01/18/25 03:07 Inhibitor Vital Signs Vital Signs - 24 hr 01/18/25 08:00 01/18/25 08:00 01/18/25 12:00 Temperature Pulse Rate 75 78 Respiratory Rate Blood Pressure Pulse Oximetry Oxygen Delivery Room Air 01/18/25 14:00 01/18/25 16:00 01/18/25 16:00 Temperature 97.6 F Pulse Rate 77 80 79 Respiratory Rate 18 Blood Pressure 94/66 L 109/74 Pulse Oximetry 99 99 Oxygen Delivery 01/18/25 20:00 01/18/25 22:01 01/19/25 00:00 Temperature 97.3 F L Pulse Rate 76 76 76 Respiratory Rate 16 Blood Pressure 100/65 Pulse Oximetry 95 Oxygen Delivery 01/19/25 04:00 Temperature Pulse Rate 82 Respiratory Rate Blood Pressure Pulse Oximetry Oxygen Delivery Exam Psych: Appearance: grossly normal Mental Status: mental status grossly normal Speech and movement: Normal speech and movement present Affect: normal affect Attitude: cooperative Thought process: Normal thought process present Thought content: Yes Normal thought content present Insight: Good insight present (Psych) Judgement: Good judgement present (Psych) Results Labs 01/17/25 21:55 01/18/25 04:48
--- NOTE | 2025-01-19 07:56 | P.PNIM_ITS ---
Progress Note: A&P Assessment and Plan (1) Acute on chronic systolic CHF (congestive heart failure): Code(s): I50.23 - Acute on chronic systolic (congestive) heart failure Status: Acute Assessment and Plan: Increased abdominal swelling and lower extremity swelling as well as shortness of breath. Recent hospitalization in November of 2024, developed hypotension and spironolactone and Lasix were discontinued resulting in a more than 10 lb weight gain. Followed up with Dr. Hernandez on 12/24/2024 and resumed her home Lasix (40 mg) and spironolactone (12.5 mg) however began having hypotension again and the medications were stopped. - Difficulty treating CHF given ongoing hypotension Current medications: Entresto 24-26 mg daily, spironolactone 12.5 mg daily, and lasix 20 mg daily - BNP: 74417 - Lactic acidosis and mild KENJI on admission likely secondary to volume overload causing congestion or hypotension resulting in hypoperfusion, resolved - Chest XR: large left and small right pleural effusions - Chest/abdomen/pelvis CT: Small right and moderate-sized left pleural effusions. - Severe systolic dysfunction EF of 20% noted on echo in 2022. - Monitor vital signs, I&Os, BUN/creatinine, daily weights, neuro status and patient is a fall risk - Monitor serum electrolytes, Keep serum Potassium>4 and serum Magnesium>2 and CBC - Cardiology consulted * transitioned to PO lasix 20 mg daily * continue her aldactone 12.5 mg daily, Jardiance 25 mg daily and entresto 24-26 mg BID * f/u in 2 weeks w/ cardiology (2) Hypotension: Qualifiers: Hypotension type: hypotension due to drug Qualified Code(s): I95.2 - Hypotension due to drugs Code(s): I95.9 - Hypotension, unspecified Status: Acute Assessment and Plan: Ongoing given CHF treatment with diuretics CT also showing 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 Subclavian steal could also be resulting in hypotension Cardiology following should not be surprised by asymptomatic hypotension and given her end-stage cardiomyopathy we should not be withholding medications for these reasons BP has been stable. (3) Kidney mass: Code(s): N28.89 - Other specified disorders of kidney and ureter Status: Acute Assessment and Plan: 1.8 cm left kidney mass, most likely a hemorrhagic cyst. Renal cell carcinoma is not excluded. Previously seen on 12/14/24. Follow up with pcp. (4) Generalized anxiety disorder: Code(s): F41.1 - Generalized anxiety disorder Status: Acute Assessment and Plan: QTc elevated at 525 on sertraline for chronic ANDERSON Psych consulted Recommend continuing sertraline 25mg daily for anxiety management Patient denies further psychiatric complaints or concerns, follow up with PCP for continued management (5) Atrial fibrillation: Code(s): I48.91 - Unspecified atrial fibrillation Status: Acute Assessment and Plan: Chronic s/p ppm and on anticoagulation Time Spent With Patient Time with patient: 25 - 35 minutes Subjective Date/time seen: 01/19/25 07:56 Interval history: 84-year-old female with a past medical history mild restrictive lung disease, coronary artery disease with history of prior MT, systolic heart failure, atrial fibrillation with tachy-hailey syndrome, cardiac pacemaker, untreated hyperlipidemia, ischemic stroke the left middle cerebral artery among other comorbidities who presented to the hospital for increased abdominal and lower extremity swelling and shortness of breath. Patient pleasant lying comfortably in bed with family at bedside. She continues to endorse slight shortness of breath but states much improved since admission. She also notes that her overall swelling has much improved. She denies any chest pain, palpitations, nausa/vomiting or abdominal pain. She did endorse slight dizziness when walking from the restroom but stated that this quickly resolved. PT/OT ordered. Review of Systems Review of Systems: All systems reviewed & are unremarkable except as noted in HPI and below Exam Narrative: AF HR 77 RR 18 SPO2 96 BP 102/66 General: female in no acute respiratory distress who is nontoxic appearing, lying semi recumbent in bed. HEENT: Normocephalic. Atraumatic. Extraocular movement intact. Sclera clear and anicteric. No facial asymmetry. Chest: Lungs are clear to auscultation bilaterally CV: Heart was regular rate and rhythm. Abd: Abdomen was soft. Nontender. Nondistended. Positive bowel sounds. Ext: No clubbing, cyanosis. Trivial edema to BLE. DP pulses bilaterally. Neuro: Patient is alert and oriented x4. Speech is clear. Objective Data Vital Signs Vital Signs: Vital Signs - 24 hr 01/18/25 08:00 01/18/25 08:00 01/18/25 12:00 Temperature Pulse Rate 75 78 Respiratory Rate Blood Pressure Pulse Oximetry Oxygen Delivery Room Air 01/18/25 14:00 01/18/25 16:00 01/18/25 16:00 Temperature 97.6 F Pulse Rate 77 80 79 Respiratory Rate 18 Blood Pressure 94/66 L 109/74 Pulse Oximetry 99 99 Oxygen Delivery 01/18/25 20:00 01/18/25 22:01 01/19/25 00:00 Temperature 97.3 F L Pulse Rate 76 76 76 Respiratory Rate 16 Blood Pressure 100/65 Pulse Oximetry 95 Oxygen Delivery 01/19/25 04:00 Temperature Pulse Rate 82 Respiratory Rate Blood Pressure Pulse Oximetry Oxygen Delivery Intake/Output Intake/Output: Intake & Output 01/16/25 01/17/25 01/18/25 01/19/25 23:59 23:59 23:59 23:59 Intake Total 960 Output Total 50 350 Balance -50 610 Meds/Results Medications: Active Medications Generic Name Dose Route Start Last Admin Trade Name Freq PRN Reason Stop Dose Admin Acetaminophen 650 mg 01/18/25 16:51 01/18/25 17:21 Acetaminophen 325 Mg Tablet PO 650 mg Q6H PRN Administration Mild Pain (1-3) or Fever Apixaban 5 mg 01/18/25 09:00 01/18/25 20:33 Apixaban 5 Mg Tablet PO 5 mg Q12HR NAVEED Administration Aspirin 81 mg 01/18/25 09:00 01/18/25 08:47 Aspirin 81 Mg Enteric Tablet PO 81 mg DAILY NAVEED Administration Empagliflozin 25 mg 01/18/25 09:00 01/18/25 08:47 Empagliflozin 25 Mg Tablet BY MOUTH 25 mg DAILY NAVEED Administration Fluticasone Propionate 2 spray 01/18/25 03:41 Fluticasone Propionate 0.05% Na Spr 16 Gm Btl (*Bkc) NASAL DAILY PRN Nasal Congestion Furosemide 20 mg 01/18/25 09:00 01/18/25 08:47 Furosemide 20 Mg Tablet PO 20 mg DAILY NAVEED Administration Loratadine 10 mg 01/18/25 04:08 Loratadine 10 Mg Tablet PO DAILY PRN allergy symptoms Magnesium Oxide 200 mg 01/18/25 21:00 01/18/25 20:33 Magnesium Oxide 200 Mg Tablet PO 200 mg HS NAVEED Administration Sacubitril/Valsartan 1 tab 01/18/25 09:00 01/18/25 21:26 Sacubitril/Valsartan 24-26 Mg Tablet PO 1 tab Q12HR NAVEED Administration Senna/Docusate Sodium 1 tab 01/18/25 21:00 01/18/25 20:33 Senna/Docusate Sodium Tablet PO 1 tab HS NAVEED Administration Sertraline HCl 25 mg 01/18/25 09:00 01/18/25 08:47 Sertraline Hcl 25 Mg Tablet PO 25 mg DAILY NAVEED Administration Spironolactone 12.5 mg 01/18/25 09:00 01/18/25 08:47 Spironolactone 12.5 Mg Tablet PO 12.5 mg QAM NAVEED Administration Terbinafine HCl 250 mg 01/18/25 09:00 01/18/25 08:47 Terbinafine Hcl 250 Mg Tablet PO 250 mg DAILY NAVEED Administration Trimethobenzamide HCl 200 mg 01/18/25 14:05 Trimethobenzamide Hcl 200 Mg/2 Ml Vial IM Q6H PRN Nausea And Vomiting Vitamin D 50 mcg 01/18/25 09:00 01/18/25 08:47 Cholecalciferol (Vitamin D3) 25 Mcg (1,000 Units) Tablet PO 50 mcg DAILY NAVEED Administration Radiology Results: ITS Impressions Chest X-Ray 01/18/25 06:35 IMPRESSION: 1. Large left and small right pleural effusions. Chest/Abdomen/Pelvis CT 01/18/25 07:03 IMPRESSION: 1. Small right and moderate-sized left pleural effusions. 2. 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 3. 1.8 cm left kidney mass, most likely a hemorrhagic cyst. Renal cell carcinoma is not excluded. Abdomen CT without and with contrast is recommended.. Quality VTE Prophylaxis VTE prophylaxis: pharmacologic ordered
[2025-01-19] MEDS: APIXABAN 5 MG TABLET PO ×2 (08:25→20:36)
[2025-01-19] MEDS: SACUBITRIL/VALSARTAN 24-26 MG TABLET 1 TAB PO ×2 (08:25→20:36)
[2025-01-19] MEDS: FUROSEMIDE 20 MG TABLET PO (08:25)
[2025-01-19] MEDS: CHOLECALCIFEROL (VITAMIN D3) 25 MCG (1,000 UNITS) TABLET 50 MCG PO (08:25)
[2025-01-19] MEDS: SERTRALINE HCL 25 MG TABLET PO (08:25)
[2025-01-19] MEDS: ASPIRIN 81 MG ENTERIC TABLET PO (08:25)
[2025-01-19] MEDS: EMPAGLIFLOZIN 25 MG TABLET BY MOUTH (08:25)
[2025-01-19 08:42] LABS: Hematocrit 46.0 % (37.0-47.0); Hemoglobin 14.5 g/dL (12.0-15.0); Mean Corpuscular HGB Conc 31.5 g/dl (32-36); Mean Corpuscular Hemoglobin 32.1 pg (26-34); Mean Corpuscular Volume 101.8 fl (80-100); Platelet Count Result 272 k/mm3 (150-375); Red Blood Count 4.52 M/mm3 (4.2-5.4); White Blood Count 7.9 K/mm3 (4.5-10.0)
[2025-01-19 09:04] LABS: Alanine Aminotransferase 15 U/L (6-35); Albumin Level 3.8 g/dL (3.5-5.1); Alkaline Phosphatase 36 U/L (38-126); Anion Gap 11 mmol/L (4-12); Aspartate Amino Transferase 29 U/L (14-36); Bilirubin,Total 1.0 mg/dL (0.2-1.3); Blood Urea Nitrogen 24 mg/dL (7-17); Calcium 8.8 mg/dL (8.4-10.2); Carbon Dioxide 28 mmol/L (22-30); Chloride 103 mmol/L (98-107); Estimated CRCL calculation 32 ml/min; Estimated Glomerular Filt Rate 54; Glucose 99 mg/dL (65-110); Potassium 3.7 mmol/L (3.4-5.0); Sodium 142 mmol/L (137-145); Total Protein 6.8 g/dL (6.3-8.2)
--- NOTE | 2025-01-19 10:21 | P.PNCA_ITS ---
Progress Note: A&P Assessment and Plan (1) Acute on chronic systolic CHF (congestive heart failure): Code(s): I50.23 - Acute on chronic systolic (congestive) heart failure Status: Acute Assessment and Plan: * severe systolic dysfunction EF of 20% noted on echo in 2022. * she is s/p IV lasix and appears better compensated * she has been transitioned to PO lasix 20 mg daily * continue her aldactone 12.5 mg daily, Jardiance 25 mg daily and entresto 24-26 mg BID * no BB secondary to hypotension (2) Hypotension: Qualifiers: Hypotension type: hypotension due to drug Qualified Code(s): I95.2 - Hypotension due to drugs Code(s): I95.9 - Hypotension, unspecified Status: Acute Assessment and Plan: * chronic. BP stable at this time * patient asymptomatic (3) Atrial fibrillation: Code(s): I48.91 - Unspecified atrial fibrillation Status: Acute Assessment and Plan: * chronic atrial fibrillation rate is paced and controlled * Remains on Eliquis for AC and no bleeding concerns Plan * change to PO lasix * give Entresto today and monitor BP * encourage activity * possible dc home later today or in am when ok with hospital team * will need f/u in office in 2 weeks Subjective Date/time seen: 01/19/25 10:21 Interval history: Date of Service 01/19/25: Patient is sitting up in bed, daughter is at the bedside. She states feeling improved today. Denies any shortness of breath. No chest pain or pressure. No dizziness with resuming Entresto this am. She feels as though her abdominal bloating has improved. Review of Systems Review of Systems: All systems reviewed & are unremarkable except as noted in HPI and below Exam Const: General: comfortable and no acute distress Other: Pleasant elderly lady currently in no distress HENMT: Mouth: Yes moist mucous membranes Eyes: Sclera: sclerae normal Neck: Neck: supple and no JVD Resp: Effort & Inspection: normal respiratory effort Auscultation: clear to auscultation bilaterally Cardio: Rate: regular rate Rhythm: regular rhythm Other: paced rate GI: Auscultation: normal bowel sounds Skin: General skin exam: normal color Neuro: Other: alert and oriented x3 Extrem: Other: mild soft pitting edema Objective Data Vital Signs Vital Signs: Vital Signs - 24 hr 01/18/25 12:00 01/18/25 14:00 01/18/25 16:00 Temperature 36.4 C Pulse Rate 78 77 80 Respiratory Rate 18 Blood Pressure 94/66 L 109/74 Pulse Oximetry 99 99 Oxygen Delivery 01/18/25 16:00 01/18/25 20:00 01/18/25 22:01 Temperature 36.3 C L Pulse Rate 79 76 76 Respiratory Rate 16 Blood Pressure 100/65 Pulse Oximetry 95 Oxygen Delivery 01/19/25 00:00 01/19/25 04:00 01/19/25 06:00 Temperature 36.5 C Pulse Rate 76 82 76 Respiratory Rate 16 Blood Pressure 101/74 Pulse Oximetry 97 Oxygen Delivery 01/19/25 08:00 Temperature Pulse Rate Respiratory Rate Blood Pressure Pulse Oximetry Oxygen Delivery Room Air Intake/Output Intake/Output: Intake & Output 01/16/25 01/17/25 01/18/25 01/19/25 23:59 23:59 23:59 23:59 Intake Total 960 540 Output Total 50 350 400 Balance -50 610 140 Meds/Results Medications: Active Medications Generic Name Dose Route Start Last Admin Trade Name Freq PRN Reason Stop Dose Admin Acetaminophen 650 mg 01/18/25 16:51 01/18/25 17:21 Acetaminophen 325 Mg Tablet PO 650 mg Q6H PRN Administration Mild Pain (1-3) or Fever Apixaban 5 mg 01/18/25 09:00 01/19/25 08:25 Apixaban 5 Mg Tablet PO 5 mg Q12HR NAVEED Administration Aspirin 81 mg 01/18/25 09:00 01/19/25 08:25 Aspirin 81 Mg Enteric Tablet PO 81 mg DAILY NAVEED Administration Empagliflozin 25 mg 01/18/25 09:00 01/19/25 08:25 Empagliflozin 25 Mg Tablet BY MOUTH 25 mg DAILY NAVEED Administration Fluticasone Propionate 2 spray 01/18/25 03:41 Fluticasone Propionate 0.05% Na Spr 16 Gm Btl (*Bkc) NASAL DAILY PRN Nasal Congestion Furosemide 20 mg 01/18/25 09:00 01/19/25 08:25 Furosemide 20 Mg Tablet PO 20 mg DAILY NAVEED Administration Loratadine 10 mg 01/18/25 04:08 Loratadine 10 Mg Tablet PO DAILY PRN allergy symptoms Magnesium Oxide 200 mg 01/18/25 21:00 01/18/25 20:33 Magnesium Oxide 200 Mg Tablet PO 200 mg HS NAVEED Administration Sacubitril/Valsartan 1 tab 01/18/25 09:00 01/19/25 08:25 Sacubitril/Valsartan 24-26 Mg Tablet PO 1 tab Q12HR NAVEED Administration Senna/Docusate Sodium 1 tab 01/18/25 21:00 01/18/25 20:33 Senna/Docusate Sodium Tablet PO 1 tab HS NAVEED Administration Sertraline HCl 25 mg 01/18/25 09:00 01/19/25 08:25 Sertraline Hcl 25 Mg Tablet PO 25 mg DAILY NAVEED Administration Spironolactone 12.5 mg 01/18/25 09:00 01/19/25 08:25 Spironolactone 12.5 Mg Tablet PO 12.5 mg QAM NAVEED Administration Terbinafine HCl 250 mg 01/18/25 09:00 01/19/25 08:26 Terbinafine Hcl 250 Mg Tablet PO Not Given DAILY NAVEED Trimethobenzamide HCl 200 mg 01/18/25 14:05 Trimethobenzamide Hcl 200 Mg/2 Ml Vial IM Q6H PRN Nausea And Vomiting Vitamin D 50 mcg 01/18/25 09:00 01/19/25 08:25 Cholecalciferol (Vitamin D3) 25 Mcg (1,000 Units) Tablet PO 50 mcg DAILY NAVEED Administration Radiology Results: ITS Impressions Chest X-Ray 01/18/25 06:35 IMPRESSION: 1. Large left and small right pleural effusions. Chest/Abdomen/Pelvis CT 01/18/25 07:03 IMPRESSION: 1. Small right and moderate-sized left pleural effusions. 2. 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 3. 1.8 cm left kidney mass, most likely a hemorrhagic cyst. Renal cell carcinoma is not excluded. Abdomen CT without and with contrast is recommended.. Labs Labs: Laboratory Results - last 24 hr 01/19/25 08:21 WBC 7.9 RBC 4.52 Hgb 14.5 Hct 46.0 MCV 101.8 H MCH 32.1 MCHC 31.5 L RDW 15.3 H Plt Count 272 MPV 10.5 H Sodium 142 Potassium 3.7 Chloride 103 Carbon Dioxide 28 Anion Gap 11 BUN 24 H Creatinine 0.98 Estim Creat Clear Calc 32 Estimated GFR 54 L Glucose 99 Calcium 8.8 Total Bilirubin 1.0 AST 29 ALT 15 Alkaline Phosphatase 36 L Total Protein 6.8 Albumin 3.8
[2025-01-19] MEDS: MAGNESIUM OXIDE 200 MG TABLET PO (20:36)
[2025-01-19] MEDS: SENNA/DOCUSATE SODIUM TABLET 1 TAB PO (20:36)
[2025-01-20 05:03] LABS: Hematocrit 46.0 % (37.0-47.0); Hemoglobin 14.4 g/dL (12.0-15.0); Mean Corpuscular HGB Conc 31.3 g/dl (32-36); Mean Corpuscular Hemoglobin 31.5 pg (26-34); Mean Corpuscular Volume 100.7 fl (80-100); Platelet Count Result 274 k/mm3 (150-375); Red Blood Count 4.57 M/mm3 (4.2-5.4); White Blood Count 6.9 K/mm3 (4.5-10.0)
[2025-01-20 05:29] LABS: Alanine Aminotransferase 13 U/L (6-35); Albumin Level 3.6 g/dL (3.5-5.1); Alkaline Phosphatase 43 U/L (38-126); Anion Gap 9 mmol/L (4-12); Aspartate Amino Transferase 25 U/L (14-36); Bilirubin,Total 0.8 mg/dL (0.2-1.3); Blood Urea Nitrogen 27 mg/dL (7-17); Calcium 8.9 mg/dL (8.4-10.2); Carbon Dioxide 29 mmol/L (22-30); Chloride 103 mmol/L (98-107); Estimated CRCL calculation 32 ml/min; Estimated Glomerular Filt Rate 53; Glucose 114 mg/dL (65-110); Potassium 3.9 mmol/L (3.4-5.0); Sodium 141 mmol/L (137-145); Total Protein 6.5 g/dL (6.3-8.2)
[2025-01-20] MEDS: SERTRALINE HCL 25 MG TABLET PO (08:11)
[2025-01-20] MEDS: FUROSEMIDE 20 MG TABLET PO (08:11)
[2025-01-20] MEDS: EMPAGLIFLOZIN 25 MG TABLET BY MOUTH (08:11)
[2025-01-20] MEDS: ASPIRIN 81 MG ENTERIC TABLET PO (08:11)
[2025-01-20] MEDS: SACUBITRIL/VALSARTAN 24-26 MG TABLET 1 TAB PO (08:11)
[2025-01-20] MEDS: CHOLECALCIFEROL (VITAMIN D3) 25 MCG (1,000 UNITS) TABLET 50 MCG PO (08:11)
[2025-01-20] MEDS: APIXABAN 5 MG TABLET PO (08:11)
[2025-01-20 08:16] VITALS: BP 116/54; PULSE 81; RESP 18; TEMP 36.6; O2SAT 96
--- NOTE | 2025-01-20 10:27 | P.DS_ITS ---
DS: Admitting Diagnosis Discharge Date 01/20/2025 Admitting Diagnosis acute on chronic systolic chf hypotension kidney mass anxiety afib DS: Discharge Diagnosis Discharge Diagnosis (1) Acute on chronic systolic CHF (congestive heart failure): Code(s): I50.23 - Acute on chronic systolic (congestive) heart failure Status: Acute (2) Hypotension: Qualifiers: Hypotension type: hypotension due to drug Qualified Code(s): I95.2 - Hypotension due to drugs Code(s): I95.9 - Hypotension, unspecified Status: Acute (3) Kidney mass: Code(s): N28.89 - Other specified disorders of kidney and ureter Status: Acute (4) Generalized anxiety disorder: Code(s): F41.1 - Generalized anxiety disorder Status: Acute (5) Atrial fibrillation: Code(s): I48.91 - Unspecified atrial fibrillation Status: Acute DS: Summary Hospital Course Reason for hospitalization: acute on chronic systolic chf hypotension kidney mass anxiety afib Hospital Course: 84-year-old female with a past medical history mild restrictive lung disease, coronary artery disease with history of prior [place], systolic heart failure, atrial fibrillation with tachy-hailey syndrome, cardiac pacemaker, untreated hyperlipidemia, ischemic stroke the left middle cerebral artery among other comorbidities who presented to the hospital for increased abdominal and lower extremity swelling and shortness of breath. Patient noted to have lactic acidosis and mild KENJI on admission likely secondary to volume overload causing congestion or hypotension resulting in hypoperfusion. Resolved during admission. Chest xr showed large left and small right pleural effusions. Chest/abdomen/pelvis CT showed small right and moderate-sized left pleural effusions. Prior echo showed severe systolic dysfunction EF of 20% noted on echo in 2022. Cardiology consulted as patient was previously having her diuretics held for hypotension. Per cardiology patient was restarted on her aldactone 12.5 mg daily, Jardiance 25 mg daily and entresto 24-26 mg BID. She remains off of a BB given hypotension concern. Patient has been having ongoing hypotension likely related to CHF treatment with diuretics. Per cardiology should not be surprised by asymptomatic hypotension and given her end-stage cardiomyopathy we should not be withholding medications for these reasons. Patients blood pressures remain stable on the current regimen and she denies dizziness/lightheadedness. 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 Subclavian steal syndrome could be contributing to the hypotension. Discussed with patient and daughter about possible follow up with vascular surgery and they were not interested at this time. Patient to follow with cardiology and primary care provider. Per cardiology patient stable for discharge from their perspective with follow up in the office. 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 This lesion was previously seen November 2024. Discussed with patient they are aware of the mass. Patient follow-up with her primary care provider. During admission patient noted to have a prolonged QTC is on sertraline for chronic anxiety. Psych was consulted and recommended continue the sertraline as previously prescribed. Patient denies any further psychiatric complaints or concerns. She is to follow with her primary care provider for continued management. Patient no complaints time of discharge denying chest pain, shortness a breath, palpitations, nausea/vomiting, abdominal pain, dizziness/lightheadedness with ambulation. Patient discharged home with home health in a stable condition. She has follow- up with her primary care provider in 1 week and Cardiology as scheduled. Status at Discharge Functional status at discharge: uses cane/walker Time Spent with Patient Time attestation: Total time spent providing and/or coordinating discharge services: Time spent: Greater than 30 minutes Exam Narrative: AF HR 81 RR 18 SPO2 96 BP 116/54 General: female in no acute respiratory distress who is nontoxic appearing, sitting up in chair HEENT: Normocephalic. Atraumatic. Extraocular movement intact. Sclera clear and anicteric. No facial asymmetry. Chest: Lungs are clear to auscultation bilaterally. Speaking full sentences. CV: Heart was regular rate and rhythm. Abd: Abdomen was soft. Nontender. Nondistended. Positive bowel sounds. Ext: No clubbing, cyanosis. Trivial edema to BLE. DP pulses bilaterally. Neuro: Patient is alert. Speech is clear. DS: Data Data Completed and Pending Completed studies during hospitalization: chest/abdomen/pelvis ct chest xr Labs on day of discharge: Labs from last 24 hours 01/20/25 04:49 WBC 6.9 RBC 4.57 Hgb 14.4 Hct 46.0 MCV 100.7 H MCH 31.5 MCHC 31.3 L RDW 15.2 H Plt Count 274 MPV 10.2 Sodium 141 Potassium 3.9 Chloride 103 Carbon Dioxide 29 Anion Gap 9 BUN 27 H Creatinine 1.00 Estim Creat Clear Calc 32 Estimated GFR 53 L Glucose 114 H Calcium 8.9 Total Bilirubin 0.8 AST 25 ALT 13 Alkaline Phosphatase 43 Total Protein 6.5 Albumin 3.6 Discharge Plan Discharge Attending physician on discharge: Olga Vizcaino Consulting providers: Mannie Hernandez; Alba Clinton; Cece Christy; Solis Page; Fran Pan; Mellissa Singh; Jennie Quintana; Freddy Barreto; Vernon Villalpando V. Discharging Clinician: Alba Clinton Anticipated Discharge Date/Time: 01/20/25 10:17 Patient Disposition: Home with Home Health Service Activity: as tolerated Diet: as tolerated and heart healthy Discharge Instructions: Per Care Coordination: [facility] ([phone]) will call to set up initial visit. Discharge disposition: Patient admitted to the hospital for a CHF exacerbation Evaluated by Cardiology * Medications:?Continue lasix 20 mg daily, spironolactone 12.5 mg daily, Entresto twice a day. Take all prescribed medications exactly as directed. Do not stop or change doses without consulting your healthcare provider. * Diuretics and Fluid Management:?Take diuretics as prescribed to help remove excess fluid. Monitor for signs of dehydration or low potassium (muscle cramps , weakness). Unless otherwise instructed, limit fluid intake to about 2 liters (64 ounces) per day, especially if you have been told you are at risk for fluid overload * Daily Weight Monitoring:?Weigh yourself every morning after urinating and before eating, using the same scale. Record your weight daily. Notify your healthcare provider if you gain more than 2-3 pounds in one day or 5 pounds in a week, as this may indicate fluid retention. * Diet:?Follow a low-sodium diet (generally less than 2,000 mg per day) to help control fluid buildup. Avoid processed foods, canned soups, and salty snacks. Read food labels for sodium content. * Activity:?Stay as active as possible within your limits. Light walking and daily activities are encouraged unless otherwise instructed. * Symptom Monitoring:?Watch for symptoms such as increased shortness of breath, swelling in your legs or abdomen, rapid weight gain, chest pain, dizziness, or confusion. If these occur, contact your healthcare provider promptly or seek emergency care if severe. Renal cyst seen on imaging. Renal function remains within normal limits. Follow up with primary care provider for further evaluation. Monitor blood pressures Take caution while standing, rising, or moving Change positions slowly taking a break between each position change If you standing feel dizzy sit back down and take a break Encouraged to continue with yearly vaccinations Return to the emergency department if he developed sudden shortness of breath, chest pain, nausea, vomiting, upset stomach or intractable diarrhea Return to the emergency department if you develop fever greater than 100.5 Follow-up with the primary care physician within 1-2 weeks Thank you for [facility] for your healthcare needs Patient Instructions: Spironolactone (By mouth), Furosemide (By mouth), Apixaban (By mouth), Sacubitril/Valsartan (By mouth), Heart Failure (DC), Heart Healthy Diet (DC), Safe Use of Anticoagulants (GEN), Blood Thinners (DC) Patient Language: Portuguese Stand Alone Forms: General Discharge Information Follow-up/Referrals: Mannie Hernandez MD [Physician, Cardiology] - 2 Weeks Jaleel Mcgovern MD [Primary Care Provider, Family Practice] - 1 Week Otis Meehan MD [Physician, Psychiatry] - Call for Appointment Discharge Medications: Continued dapagliflozin propanediol [Farxiga] 10 mg Tablet 10 mg PO DAILY fluticasone propionate 50 mcg/actuation spray,suspension 1 spray intranasal DAILY PRN (Reason: nasal congestion) Rx Instructions: administer into each nostril coenzyme Q10 30 mg capsule 30 mg PO TID cholecalciferol (vitamin D3) 50 mcg (2,000 unit) tablet 50 mcg PO DAILY Zyrtec 10 mg capsule 10 mg PO DAILY PRN (Reason: allergy symptoms) terbinafine HCl 250 mg tablet 250 mg PO DAILY Qty: 84 0RF Entresto 24-26 mg tablet 1 tablet PO BID spironolactone 25 mg tablet 12.5 mg PO QAM magnesium 100 mg capsule 100 mg PO HS ondansetron 4 mg tablet,disintegrating 4 mg PO Q6H PRN (Reason: nausea and vomiting) aspirin [Adult Low Dose Aspirin] 81 mg tablet,delayed release (DR/EC) 81 mg PO DAILY Qty: 90 1RF Patient Comments: Holding for 1 week prior sertraline 25 mg tablet 25 mg PO DAILY Qty: 90 1RF Eliquis 5 mg tablet 5 mg PO Q12H Qty: 180 1RF prednisone 20 mg tablet 40 mg PO DAILY Qty: 10 0RF Changed furosemide 20 mg tablet 20 mg PO DAILY Qty: 30 0RF Discontinued azithromycin 250 mg tablet See Rx Instructions .ROUTE .COMPLEX Qty: 6 0RF Rx Instructions: For 250 mg dose pack: take 500 mg today (day 1), then 250 mg for 4 days (days 2-5) Date of admission: 01/19/25 15:13 Primary Care Provider: Jaleel Mcgovern Admitting Provider: Carol Ann Snow Attending physician on admission: Alba Clinton Condition: Stable Hospitalist MIPS Heart Failure (Exclusion) Patient has history of Heart Transplant or Left Ventricular Assistive Device?: No IF YES, STOP HERE Heart Failure (Qualifier) Patient has current or prior documentation of LVEF less than or equal to 40%, or mod/servere depressed LVSF?: Yes IF NO, STOP HERE If Yes, Heart Failure (Qualifier) Patient was prescribed or already taking an Angiotensin-Converting Enzyme (KENJI) Inhibitor, or Antiotensin Receptor Vinay (ARB): Yes Patient was prescribed or already taking bisoprolol, carvedilol, or sustained release metoprolol succinate: No If Medications not prescribed/taking Reason patient not prescribed/taking bisoprolol, carvedilol, or sustained realease metoprolol succinate: Medical reasons: allergy, intolerance, contraindication or other (hypotension )
== END 2025-01-20 11:21 | disposition home health service (06) | DRG 291 ==
LOC: ANHED 01-18 02:24 → ANH3MED 01-18 02:40
PROVIDERS: Student in an Organized Health Care Education/Training Program; Admitting Provider Internal Medicine; Emergency Provider Registered Nurse; PCP Family Medicine; Visit Provider Student in an Organized Health Care Education/Training Program
DX: I11.0 Hypertensive heart disease with heart failure (principal); I50.23 Acute on chronic systolic (congestive) heart failure; E87.20 Acidosis, unspecified; I69.951 Hemiplegia and hemiparesis following unspecified cerebrovascular disease affecting right dominant side; J90 Pleural effusion, not elsewhere classified; I48.20 Chronic atrial fibrillation, unspecified; N17.9 Acute kidney failure, unspecified; I70.92 Chronic total occlusion of artery of the extremities; G45.8 Other transient cerebral ischemic attacks and related syndromes; E78.5 Hyperlipidemia, unspecified; I25.10 Atherosclerotic heart disease of native coronary artery without angina pectoris; K76.1 Chronic passive congestion of liver; I25.5 Ischemic cardiomyopathy; I95.89 Other hypotension; I95.2 Hypotension due to drugs; T50.1X5 Adverse effect of loop [high-ceiling] diuretics; T50 Poisoning by, adverse effect of and underdosing of diuretics and other and unspecified drugs, medicaments and biological substances; N28.89 Other specified disorders of kidney and ureter; I73.9 Peripheral vascular disease, unspecified; K57.90 Diverticulosis of intestine, part unspecified, without perforation or abscess without bleeding; K58.9 Irritable bowel syndrome, unspecified; F41.0 Panic disorder [episodic paroxysmal anxiety]; J98.4 Other disorders of lung; Z66 Do not resuscitate; E66.9 Obesity, unspecified; Z68.30 Body mass index [BMI] 30.0-30.9, adult; Z87.19 Personal history of other diseases of the digestive system; Z87.891 Personal history of nicotine dependence; Z79.2 Long term (current) use of antibiotics; Z79.01 Long term (current) use of anticoagulants; I25.2 Old myocardial infarction; Z95.0 Presence of cardiac pacemaker; Z95.1 Presence of aortocoronary bypass graft; Z90.49 Acquired absence of other specified parts of digestive tract; Z79.82 Long term (current) use of aspirin; Z79.51 Long term (current) use of inhaled steroids
CPT/HCPCS: 36415; 71045; 71260; 74177; 80048; 80053; 81001; 83605; 83735; 83880; 84484; 85025; 85027; 85610; 85730; 87040; 93005; 96374; 96376; 97161; 97166; 99285; A9270; G0378; J1938; Q9967

== ENCOUNTER 2025-03-09 14:31 | Outpatient (CLI) | payer MEDICARE, SELFPAY ==
--- NOTE | ~2025-03-09 | XR_ITS ---
EXAMINATION: XR chest 2V, 03/09/2025 14:43 TRAFFIC OFFICER HISTORY: J90 - Pleural effusion, not elsewhere classified COMPARISON: No comparisons available. Technique: 2 views obtained. Findings: Moderate left basilar infiltrate and effusion. No pneumothorax. Moderate cardiomegaly. Mediastinal and hilar contours are within normal limits. Bony thorax no acute abnormality. Left pacemaker. Impression: CHF. Left lower lobe probable bronchopneumonia. The findings appear relatively unchanged. Reviewed, dictated and finalized at location P. FIC OFFICER Impression: CHF. Left lower lobe probable bronchopneumonia. The findings appear relatively unchanged.
--- OUTSIDE RECORDS SUMMARY | 2025-03-09 17:23 | XMS_ITS | Clinical Summary ---
Author Organization [facility] Address [address] [place] [address] Care Team Providers Care Code Machine Operator Name Role Phone Reynaldo Flannery DO Unavailable [phone] Guanakito Holland MD Unavailable [phone] Jaleel Mcgovern MD Primary Care Provider [phone] Allergies Active Allergy Reactions Criticality Noted Date [...] total) by mouth daily 90 tablet 3 Active spironolactone (ALDACTONE) 25 mg tabletIndication s:hypertension Take 0.5 tablets (12.5 mg total) by mouth daily 45 tablet 3 Active fluticasone propionate (FLONASE) 50 mcg/actuation nasal [...] (six) hours as needed for pain Active coenzyme Q10 30 mg capsule Take 1 capsule (30 mg total) by mouth 3 (three) times a day Active apixaban (ELIQUIS) 5 mg tabletIndication s:atrial fibrillation Take 1 tablet (5 mg total) by mouth every 12 (twelve) hours 180 tablet 3 4 Active sacubitriL-valsa rtan (ENTRESTO) 24-26 mg tabletIndication s:chronic heart failure Take 1 tablet by mouth 2 (two) times a day 180 tablet 3 4 Active sertraline (ZOLOFT) 25 mg tablet Take 1 tablet (25 mg total) by mouth daily Active cetirizine (ZyrTEC) 10 mg tablet Take 1 tablet (10 mg total) by mouth daily Active terbinafine (LamiSIL) 250 mg tablet Take 1 tablet (250 mg total) by mouth daily Active bumetanide (BUMEX) 2 mg tablet Take 1 tablet (2 mg total) by mouth daily 30 tablet 11 5 026 Active dapagliflozin propanediol (FARXIGA) 10 mg tabletIndication s:Heart Failure Take 1 tablet (10 mg total) by mouth daily 90 tablet 3 5 026 Active furosemide (LASIX) 20 mg tablet Take 2 tablets (40 mg total) by mouth daily 3 025 Discontin ued(Alter christi therapy) dapagliflozin propanediol (FARXIGA) 10 mg tabletIndication s:Heart [...] is to continue close follow-up with local harpooner and therefore would like to discuss with [...] needed. Assessment & Plan (03/12/2017 2:39 PM SHEET FED PRINTER): Patient has Xanax for p.r.n. use. She is somewhat afraid to use this medication. She notes a positive response when she needs it. She states she is having panic attacks once to twice a month at [place]. She has been logging these since December. She states her anxiety/panic began after her . She has not been in for any formal counseling since his passing. She did see someone at [facility] for awhile. We discussed Senior renewal. She declines at the present time. She would like to continue to monitor her panic attacks and was instructed to use Xanax as previously prescribed on an as needed basis. Coronary artery disease invo lving [place] coronary artery of [place] heart 12/25/2016 Overview (04/19/2019): Status post PCI in June 2013 (RL). Normal Cardiolite in August 2014. Assessment & Plan (08/29/2022 9:25 PM CDT): Denies any chest pain or anginal equivalent. Recent drop in her LVEF to 20% from 40% with unclear etiology. Continue aspirin, metoprolol and Crestor. Would like to discuss with her local harpooner about additional ischemic workup as she plans [...] given Assessment & Plan (03/12/2017 2:37 PM SHEET FED PRINTER): Blood pressure is slightly elevated during office [...] is less than 70. Will discuss local harpooner about statin therapy and possible PCSK9 inhibitor. [...] 06/24/2017 Assessment & Plan (03/12/2017 2:39 PM SHEET FED PRINTER): Influenza A negative influenza B negative. Sore throat 03/12/2017 06/24/2017 Assessment & Plan (03/12/2017 2:39 PM SHEET FED PRINTER): Rapid strep negative. Viral URI with cough 03/12/2017 018 Assessment & Plan (03/12/2017 2:40 PM SHEET FED PRINTER): Humidification, fluids, and rest were recommended. Patient [...] AM CDT): Routinely follows-up with at [facility]. NSR today in office. Cnt. Eliquis for anticoagulation Assessment & Plan (03/12/2017 2:37 PM SHEET FED PRINTER): Patient will continue routine follow-up with Dr. Pennie pierre and local harpooner as recommended. She reports compliance with her [...] Encounters Date Type Department Care Team Description 03/01/2025 8:45 AM SHEET FED PRINTER Ancillary Procedure [facility] [address] [place] [phone] Cardiac pacemaker in situ [Z95.0] (Primary Dx); Paroxysmal atrial fibrillation (HCC); Sick sinus syndrome (HCC); HFrEF (heart failure with reduced ejection fraction) 02/09/2025 Telephone [facility] Cardiology [address] [place] [address] [address] [place] [phone] Mannie Hernandez MD 01/31/2025 11:30 AM SHEET FED PRINTER Office Visit [facility] at [address] [place] [phone] Mannie Hernandez MD Coronary artery disease involving [place] coronary artery of [place] heart without angina pectoris (Primary Dx); History of coronary artery stent placement; Cardiac pacemaker in situ; Permanent atrial fibrillation (HCC) 01/25/2025 Orders Only [facility] Cardiology [address] [place] [address] [place] [phone] Jennie Quintana, PRECIOUS 01/20/2025 Orders Only [facility] Cardiology [address] [place] [address] [place] [phone] Jennie Quintana, PRECIOUS 01/19/2025 Orders Only [facility] Cardiology [address] [place] [address] [place] [phone] Mannie Hernandez MD 01/12/2025 Telephone [facility] at [address] [place] [phone] Kraig Josue MD 12/30/2024 Telephone [facility] Cardiology [address] [place] [address] [place] [phone] Mannie Hernandez MD 12/24/2024 1:00 PM CDT Office Visit [facility] at [address] [place] [phone] Mannie Hernandez MD Coronary artery disease involving [place] coronary artery of [place] heart without angina pectoris (Primary Dx); History of coronary artery stent placement; Cardiac pacemaker in situ; HFrEF (heart failure with reduced ejection fraction); Permanent atrial fibrillation (HCC) 12/23/2024 Telephone [facility] Cardiology [address] [place] [address] [address] [place] [phone] Lizbet Miller MA Medical Records Requested 12/14/2024 Orders Only [facility] Information Management [address] [place] [address] Scanning, Provider from Last 3 Months Immunizations Immunization Administration [...] o f : Angina Diabetes Sister 1 Leroy Heart attack Sister 1 Leroy Heart disease Sister 1 Leroy Other Sister 3 DM, CAD; Other Sister 4 Valve Replaceme nt; Relation Name Status Comments Brother 1 68 Brother 2 79 Child Daughter Chelle Jara Father Derek (Age 79) Maternal Grandmother Grandma Mother (Age 93) Sister 1 Leroy Alive Sister 2 Alive Sister 3 Sister [...] or relatives? Once a week 08/12/2022 Attends [employer] Not on file 08/12 Active Member [...] Recorded Patient Health Questionnaire-2 Score 0 08/23/2022 [facility] [place] [facility] Occupat ional [facility] - Occupational Stress [...] on file Legal Sex Female 11:18 AM SHEET FED PRINTER Gender Identity Female 10/09/2022 9:08 AM CDT Sexual Orientation Choose not to disclose 2022 9:08 AM CDT Obstetrics History Para Term AB IAB SAB Ectopic Multiple Livin g Live Births 6 6 6 Date Outcome GA Total Labor Labor/2nd/3rd Weight Sex Type Anes PTL Asbi A1 A5 Name Clin Term Term Term Term Term Term Last Filed Vital Signs Vital Sign Reading Time Taken Comments Blood Pressure 98/64 01/31/2025 11:35 AM SHEET FED PRINTER Pulse 62 01/31/2025 11:35 AM SHEET FED PRINTER Temperature 36.4 C (97.6 F) 10/24/2022 11:50 AM CDT Respiratory Rate 18 10/24/2022 11:50 AM CDT Oxygen Saturation 98% 01/31/2025 11:35 AM SHEET FED PRINTER Inhaled Oxygen Concentration - - Weight 66.7 kg (147 lb) 01/31/2025 11:35 AM SHEET FED PRINTER Height 154.9 cm (5' 1) 01/31/2025 11:35 AM SHEET FED PRINTER Body Mass Index 27.78 01/31/2025 11:35 AM SHEET FED PRINTER Plan of Treatment Health Maintenance Due Date Last Done Comments DTaP/Tdap/Td Vaccine (1 - Tdap) 1951 Hepatitis B Screening 1958 Pneumococcal vaccine 65+ (1 of 2 - PCV) 1959 Zoster Vaccine (1 of 2) 1990 Osteoporosis [...] 05/25/2019, 01/06/2017 Medical Devices Implanted Type Area Band Saw Runner Device Identifier Shelf Expiration Date Model / Serial / Lot [employer] [id number] Endocardial Pacing Lead Promri Solia Jt 45 - [id number] - [id number] Implanted:Qty: 1 on 07/29/2018 by Guanakito Holland MD at [facility] Lead [employer] 12/22/2019 [id number] / [id number] / [employer] [id number] Endocardial Pacing Lead Promri Solia T 53 - [id number] - [id number] Implanted:Qty: 1 on 07/29/2018 by Guanakito Holland MD at [facility] Lead [employer] 12/22/2019 [id number] / [id number] / [employer] [id number] Solia S 45cm Bipolar Active Fixation Lead Pacing Steroid Eluting - [id number] - [id number] Implanted:Qty: 1 on 09/14/2018 by Reynaldo Flannery DO at [facility] Lead [employer] [id number] 05/21/2020 [id number] / [id number] / [id number] [employer] [id number] Edora Promri 82v49f6.5mm 1 Chamber Rate Adaptive Unipolar Bipolar - [id number] - [id number] Implanted:Qty: 1 on 07/29/2018 by Guanakito Holland MD at [facility] Pacemaker [employer] 11/22/2019 [id number] / [id number] / Medtronic Cardiac Rhythm Mgmt [id number] Tyrx 2.7x2.5in Medium Envelope Absorbable Polyarylate Minocycline - [id number] Implanted:Qty: 1 on 09/14/2018 by Reynaldo Flannery DO at [facility] [employer] 10/21/2018 [id number] / / [id number] [employer] Perclose 6fr Vascular Closure 18742-92 - [id number] Implanted:Qty: 1 on 08/03/2022 at [facility] [employer] 03/23/2024 1267 3-03 / / [id number] Procedures Procedure Name Priority Date/Time Associated Diagnosis Comments DEVICE CHECK - REMOTE Routine 03/01/2025 8:12 AM SHEET FED PRINTER Paroxysmal atrial fibrillation (HCC) Sick sinus syndrome (HCC) HFrEF (heart failure with reduced ejection fraction) CARDIOLOGY DOCUMENT SCAN Routine 01/19/2025 3:02 PM CDT CARDIOLOGY DOCUMENT SCAN Routine 01/19/2025 10:15 AM CDT CARDIOLOGY DOCUMENT SCAN Routine 01/18/2025 10:43 AM CDT SCAN - LABS 12/15/2024 SCAN - RADIOLOGY/IMAGING 12/14/2024 SCREENING MAMMOGRAM BILATERAL W OSCAR Schedule Routine, Read Routine (OP Routine) 04/06/2020 1:21 PM SHEET FED PRINTER Visit for screening mammogram Essential hypertension Mixed hyperlipidemia COLONOSCOPY Routine 05/26/2019 HM DEXA SCAN Routine 11/14/2014 from Last 3 Months or Most Recently Relevant to Health Maintenance Results * DEVICE CHECK - REMOTE (03/01/2025 8:12 AM SHEET FED PRINTER) Anatomical Region Laterality Modality Other Narrative 03/04/2025 8:55 AM SHEET FED PRINTER Biotronik Dual Pacemaker. Dx; SSS, Afib. DOI 07/29/2018-Dr Holland. RA Lead replaced 09/14/18. AV Node Ablation 12/2018. Biotronik remote monitoring. Routine VVI Pacemaker Remote. Transmission attached. Battery status-Ok, 40% remaining to LEANA. Stable lead impedances, pacing and sensing thresholds. Presenting rhythm: Vpaced. INDUSTRIAL ECOLOGY TECHNICIAN-96 %. No Ventricular arrhythmias detected. Medication: Eliquis, Entresto. Office pacemaker f/u 01/18/2026. Biotronik remote f/u 05/31/2025. Merry Cavanaugh RN Mannie Hernandez MD [facility] CARDIAC SERVICES PROC EDURES Final Result * Cardiology Document Scan (01/19/2025 3:02 PM CDT) Anatomical Region Laterality Modality Other Jennie Quintana NP [facility] CARDIAC SERVICE S PROCEDURES Final Result * Cardiology Document Scan (01/19/2025 10:15 AM CDT) Anatomical Region Laterality Modality Other Jennie Quintana NP CV CARDIAC SERVICE S PROCEDURES Final Result * Cardiology Document Scan (01/18/2025 10:43 AM CDT) Anatomical Region Laterality Modality Other Mannie Hernandez MD CV CARDIAC SERVICES PROC EDURES Final Result * SCAN - LABS (12/15/2024) Provider Scanning Final Result * SCAN - RADIOLOGY/IMAGING (12/14/2024) Anatomical Region Laterality Modality Other Provider Scanning Edited Result - Final * Screening Mammogram Bilateral W Oscar (04/06/2020 1:21 PM SHEET FED PRINTER) Anatomical Region Laterality Modality Breast Bilateral Mammography 04/06/2020 2:09 PM SHEET FED PRINTER Impressions 04/06/2020 3:13 PM SHEET FED PRINTER There is no mammographic evidence of malignancy. A 1 year screening mammogram is recommended. BI-RADS: 2 - Benign. The patient will be entered into a reminder system with a target due date of 1 year for her next mammogram. Electronically signed by: Micaela Jang MD Narrative 04/06/2020 3:13 PM SHEET FED PRINTER EXAMINATION: SCREENING MAMMOGRAM BILATERAL W OSCAR ORDERING [...] Recently Relevant to Health Maintenance Insurance MEDICARE [facility] BLUE CROSS MEDICARE SUPPLEMENT MEDICARE BLUE CROSS MEDICARE SUPPLEMENT MEDICARE [facility] Advance Directives For more information, please contact: [phone] * LIMITED - No CPR (Latest Code [...] 11:36 AM 10/19/2019 7:30 PM Care Teams Code Machine Operator Relationship Specialty Start Date End Date Jaleel Mcgovern MD PCP - General Family Practice 07/18/22 Reynaldo Flannery DO Consulting Physician Cardiology 09/26/17 Guanakito Holland MD Consulting Physician Cardiovascular Disease 07/29/18
--- OUTSIDE RECORDS SUMMARY | 2025-03-09 17:23 | XMS_ITS | Encounter Summary ---
Author Organization [facility] Healthcare Address [address] [place] [address] Care Team Providers Care Funds Transfer Clerk Name Role Phone Reynaldo Flannery DO Unavailable [phone] Guanakito Holland MD Unavailable [phone] Jaleel Mcgovern MD Primary Care Provider [phone] Encounter Details Date Type Department Care Team (Late st Contact Info) Description 08/12/2022 Telephone [facility] [address] [place] [address] Kimberly Gibbons, HOUSEHOLD PERSONAL ASSISTANT Social History Tobacco Use Types Packs/Day Years [...] Date Recorded PHQ-2 Total Score 0 08/12/2022 [facility] [...] on file Legal 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 Gender Identity Female 10/09/2022 9:08 AM [...] documented in this encounter Functional Status * Question Answer Date of Assessment Author BP Location Right arm 08/15/2022 8:59 PM CDT Cassi Dumont RN BP Method Manual 08/15/2022 8:59 PM CDT Cassi Dumont RN MAP (mmHg) 54 08/15/2022 7:00 PM CDT Agustín Falconnne * Vazquez Fall Risk Question Answer Date of Assessment Author History of Falling 0 08/15/2022 8:59 PM CDT Cassi Dumont RN Secondary Diagnosis 15 08/15/2022 8:59 PM CD T Cassi Dumont RN Ambulatory Aids 15 08/15/2022 8:59 PM CDT Cassi Watts RN Intravenous Therapy/Heparin/Saline Lock 0 08/15/2022 8:59 PM CDT Thomas Dumont RN Gait/Transferring 10 08/15/2022 8:59 PM CDT Cassi Dumont RN Mental Status 0 08/15/2022 8:59 PM CDT Cassi Cameron RN Vazquez Fall Risk Score (Score >= 45 places fall precaution order) 40 08/15/2022 8:59 PM CDT Cassi Cameron RN Prior Fall Event (Autopopula vickie from EMR) None found 08/15/2022 8:59 PM CDT Cassi Dumont R N * Elvis Scale Question Answer Date of Assessment Author Sensory Perceptions 3 08/15/2022 8:59 PM CD T Cassi Dumont, RN Moisture 4 08/15/2022 8:59 PM CDT Cassi Dumont RN Activity 3 08/15/2022 8:59 PM CDT Cassi Dumont, BRAYAN Mobility 3 08/15/2022 8:59 PM CDT Cassi Dumont RN Nutrition 3 08/15/2022 8:59 PM CDT Cassi Dumont RN Friction and Shear 3 08/15/2022 8:59 PM BENJAT Cassi Dumont RN Elvis Scale Score 19 08/15/2022 8:59 PM CDT Cassi Dumont RN * Fall Risk Interventions Question Answer Date of Assessment Author All Low Fall Interventions Applied Yes 08/15/2022 10:00 PM Cassi Novoa RN All Moderate Fall Interventions Applied Yes 08/15/2022 10:00 PM Cassi Novoa RN All Moderate Fall Risk Interventions EXCEPT: Fall risk sign with education;Fall risk armband;Gait belt at bedside;Assist with activity and transfers;PT eval requested or obtained;OT eval requested or obtained;Non-skid footwear/socks 08/12/2022 12:26 PM Ronald Flowers RN All High Fall Risk Interventions Applied Yes 08/15/2022 10:00 PM Cassi Novoa RN All High Risk Interventions EXCEPT: Bed alarm;Chair alarm;Fall risk sign with education 08/12/2022 12:26 PM BENJAT Ronald Ramirez RN Additional Interventions Applied Bed/chair alarm 08/14/2022 12:00 PM CDT Beatriz Corral RN * Additional needs/Understanding of Rehab Question Answer Date of Assessment Author Activity Tolerance good 08/12/2022 9: 31 AM CDT Kimberly Gibbons SLP Is patient participating in rehab? yes 08/12/2022 9:31 AM CDT Kimberly Gibbons SLP Adjustment to present illness patient is coping well 08/12/2022 9:31 AM CDT Kimberly Gibbons SLP Restraints n/a 08/12/2022 9:31 AM Kimberly Miller SLP Family and patient issues, concerns, and special requests none conveyed 08/12/2022 9:31 AM Kimberly Miller SLP Discharge Plan after IRF stay to return home with caregiver/family assist at highest level functional independence 08/12/2022 9:31 AM Kimberly Miller SLP Rehab brochure and disclosure form provided to Yun GINA provided info and Kimberly Liaison spoke to daughter on phone 08/09/22 and informed about [facility] 08/12/2022 9:31 AM Kimberly Miller SLP Patient and Family Goals to return home with caregiver assist and HHC 08/12/2022 9:31 AM Kimberly Miller SLP Special equipment options bed/chair alarm 08/12/2022 9:31 AM Kimberly Miller SLP Is patient able to understand and make healthcare decisions Yes 08/12/2022 9:31 AM Kimberly Miller SLP * Does Patient Walk? Question Answer Date of Assessment Author Does the Patient Walk? Yes 08/13/2022 1:00 PM CDT Raudel Ferrara, PT * Self-care Quality Indicator Goals Question Answer Date of Assessment Author Toileting: Independent 08/13/2022 4:32 PM CDT Azalea Gaona * Ambulation Quality Indicator Goals Question Answer Date of Assessment Author Walk 150 FT Independent 08/13/2022 1:00 PM CDT Raudel Son, PT * Question Answer Date of Assessment Author PT Functional Mobility 08/13/22: Bed Mobi lity: CG assist for sit to/from supine, increased [...] during descent with associated reports of weakness. 08/13/2022 11:07 AM CDT Raudel Ferrara, OCTAVIO * Question Answer Date of Assessment Author OT Functional Mobility 08/13 transfers: MIN/CGA 08/13/2022 10:10 AM CDT Azalea Martinez OT Self Care 08/13 bathing/toileti ng CGA, UB/LB dressing/footwear MIN, oral hygiene/grooming Set-up 08/13/2022 10:10 AM CDT Azalea Martinez OT Cognition WFL 08/13/2022 10:10 AM CDT Azalea Martinez OT Communication Some expressive aphasia 08/13/2022 10:10 AM CDT Azalea Martinez * Question Answer Date of Assessment Author HOUSEHOLD PERSONAL ASSISTANT Cognition oriented x3 08/12/2022 2:00 PM CDT Bell Dubose, HOUSEHOLD PERSONAL ASSISTANT HOUSEHOLD PERSONAL ASSISTANT Communication word finding deficit s and dysarthria 08/12/2022 2:00 PM CDT Bell Moffett, HOUSEHOLD PERSONAL ASSISTANT HOUSEHOLD PERSONAL ASSISTANT Swallowing assessed at . Luz ent with oral dysphagia/puree diet/thin liquids. 08/12/2022 2:00 PM CDT Bell Moffett, HOUSEHOLD PERSONAL ASSISTANT * B.M.A.T. - Bedside Mobility Assessment Tool for Nurses Question Answer Date of Assessment Author Is patient able to participate in the BMAT? Yes 08/15/2022 8:59 PM CDT Cassi Dumont RN BMAT Level Level 3 - Yellow 08/15/2022 8:59 PM CDT Cassi Shanks RN Level 3 Equipment Use assistive device such as cane/walker 08/15/2022 8:59 PM CDT Cassi Dumont RN * Question Answer Date of Assessment Author 1. Has the patient self-repo rted, presented with clinical signs of, or have a documented history of any of the following within the past 30 days? No 08/12/2022 12:26 PM CDT Ronald Ramirez R N * Question Answer Date of Assessment Author Is the patient being treated today because it is known or suspected that they prepared, started, or tried to end their life? No 08/12/2022 12:26 PM CDT Anthony Ramirez, RN * Question Answer Date of Assessment Author 1. In the past month, have y ou wished you were or that you could go to sleep and not wake up? No 08/12/2022 12:26 PM CDT Ronald Mishra RN 2. In the past month, have y ou actually had any thoughts of killing yourself? No 08/12/2022 12:26 PM CDT Ronald Ramirez R N 6. Have you ever done anythi ng, started to do anything, or prepared to do anything to end your life? No 08/12/2022 12:26 PM CDT Ronald Barnes RN * Suicide Risk Level Answer Date of Assessment Author No risk level 08/12/2022 12:26 PM CDT Ronald Ramirez RN * Self-Injurious Risk Level Answer Date of Assessment Author No risk level 08/12/2022 12:26 PM CDT Ronald Ramirez RN * Alcohol Withdrawal BP Hierarchy Answer Date of Assessment Author 49 08/15/2022 7:00 PM CDT Agustín Falcon nne * Pressure Injury Prevention Question Answer Date of Assessment Author Pressure Ulcer Prevention Interventions Keep skin clean and dry (Sensory Perception/Moisture);Plac e on pressure redistribution surface (Sensory Perception/Activity/Mobil ity) 08/15/2022 8:59 PM CDT Cassi Dumont RN 2 Nurse Skin Assessment Emperatriz Parnell Rn/ Emperatriz hernandez LPN 08/12/2022 12:26 PM CDT Ronald Ramirez RN * Over the past 2 weeks, how often have you been bothered by any of the following problems? Question Answer Date of Assessment Author Patient Health Questionnaire -2 Score 0 08/12/2022 2:22 PM CDT Yissel Ayers MSW * Eating Question Answer Date of Assessment Author Assistance Needed Set-up / clean-up 08/13/2022 3:57 PM CDT Azalea Martinez A. Physical Assistance Level No physical assistance 08/13/2022 3:57 PM CDT Maryjo Martinez sa A. CARE Score - Eating 5 08/13/2022 3:57 PM CD T Azalea Martinez A. * Oral Hygiene Question Answer Date of Assessment Author Assistance Needed Set-up / clean-up 08/13/2022 3:57 PM CDT Azalea Martinez A. Physical Assistance Level No physical assistance 08/13/2022 3:57 PM CDT Hopewell, Maryjo sa A. CARE Score - Oral Hygiene 5 08/13/2022 3:57 PM CDT Hopewell, Azalea A. * Toileting Hygiene Question Answer Date of Assessment Author Assistance Needed Incidental touching 08/13/2022 3:57 PM CDT Hopewell, Azalea A. Physical Assistance Level No physical assistance 08/13/2022 3:57 PM CDT Juan, Maryjo sa A. CARE Score - Toileting Hygiene 4 08/13/2022 3:57 PM CDT Hopewell, Azalea A. * Shower/Bathe Self Question Answer Date of Assessment Author Assistance Needed Incidental touching 08/13/2022 3:57 PM CDT Hopewell, Azalea A. Physical Assistance Level No physical assistance 08/13/2022 3:57 PM CDT Hopewell, Maryjo sa A. CARE Score - Shower/Bathe Self 4 08/13/2022 3:57 PM CDT Juan, Azalea A. * Upper Body Dressing Question Answer Date of Assessment Author Assistance Needed Physical assistance 08/13/2022 3:57 PM CDT Hopewell, Azalea A. Physical Assistance Level 25% or less 08/13/2022 3:57 PM CDT Juan, Azalea A. CARE Score - Upper Body Dressing 3 08/13/2022 3:57 PM CDT Hopewell, Azalea A. * Lower Body Dressing Question Answer Date of Assessment Author Assistance Needed Physical assistance 08/13/2022 3:57 PM CDT Juan, Azalea A. Physical Assistance Level 25% or less 08/13/2022 3:57 PM CDT Hopewell, Azalea A. CARE Score - Lower Body Dressing 3 08/13/2022 3:57 PM CDT Hopewell, Azalea A. * Putting On/Taking Off Footwear Question Answer Date of Assessment Author Assistance Needed Physical assistance 08/13/2022 3:57 PM CDT Juan, Azalea A. Physical Assistance Level 25% or less 08/13/2022 3:57 PM CDT Hopewell, Azalea A. CARE Score - Putting On/Taking Off Footwear 3 08/13/2022 3:57 PM CDT Hopewell, Maryjo sa A. * Roll Left and Right Question Answer Date of Assessment Author Assistance Needed Supervision 08/13/2022 12:59 PM CDT Raudel Ferrara, PT CARE Score - Roll Left and Right 4 08/13/2022 12:59 PM CDT Raudel Ferrara, PT * Sit to Lying Question Answer Date of Assessment Author Assistance Needed Incidental touching 08/13/2022 12:59 PM CDT Raudel Ferrara, PT CARE Score - Sit to Lying 4 08/13/2022 12:59 PM CDT Raudel Ferrara, PT * Lying to Sitting on Side of Bed Question Answer Date of Assessment Author Assistance Needed Incidental touching 08/13/2022 12:59 PM CDT Raudel Ferrara PT CARE Score - Lying to Sitting on Side of Bed 4 08/13/2022 12:59 PM CDT Odell Ferrara s, PT * Sit to Stand Question Answer Date of Assessment Author Assistance Needed Physical assistance 08/13/2022 12:59 PM CDT Raudel Ferrara, PT Physical Assistance Level 25% or less 08/13/2022 12:59 PM CDT Raudel Ferrara, PT CARE Score - Sit to Stand 3 08/13/2022 12:59 PM CDT Raudel Ferrara, PT * Chair/Bmy-jp-Flkbr Transfer Question Answer Date of Assessment Author Assistance Needed Physical assistance 08/13/2022 12:59 PM CDT Raudel Ferrara, PT Physical Assistance Level 25% or less 08/13/2022 12:59 PM CDT Raudel Ferrara, PT CARE Score - Chair/Wst-vs-Gjate Transfer 3 08/13/2022 12:59 PM CDT Raudel Ferrara, PT * Toilet Transfer Question Answer Date of Assessment Author Assistance Needed Incidental touching 08/13/2022 3:59 PM CDT Hopewell, Azalea A. Physical Assistance Level No physical assistance 08/13/2022 3:59 PM CDT Hopewell, Maryjo sa A. CARE Score - Toilet Transfer 4 08/13/2022 3:59 PM CDT Hopewell, Azalea A. * Car Transfer Question Answer Date of Assessment Author Assistance Needed Incidental touching 08/13/2022 3:59 PM CDT Hopewell, Azalea A. Physical Assistance Level No physical assistance 08/13/2022 3:59 PM CDT Hopewell, Maryjo sa A. CARE Score - Car Transfer 4 08/13/2022 3:59 PM CDT Juan, Azalea A. * Walk 10 Feet Question Answer Date of Assessment Author Assistance Needed Physical assistance 08/13/2022 1:00 PM CDRaudel Dias, PT Physical Assistance Level 25% or less 08/13/2022 1:00 PM CDT Raudel Ferrara, P T CARE Score - Walk 10 Feet 3 08/13/2022 1:00 PM CDT Raudel Ferrara, P T * Walk 50 Feet with Two Turns Question Answer Date of Assessment Author Assistance Needed Incidental touching 08/13/2022 1:00 PM CDT Raudel Ferrara, PT CARE Score - Walk 50 Feet with Two Turns 4 08/13/2022 1:00 PM CDT Raudel Ferrara, P T * Walk 150 Feet Question Answer Date of Assessment Author Reason if not Attempted Safety concerns 08/13/2022 1:0 0 PM CDRaudel Dias, PT CARE Score - Walk 150 Feet 88 08/13/2022 1:0 0 PM CDT Raudel Ferrara, PT * Walking 10 Feet on Uneven Surfaces Question Answer Date of Assessment Author Reason if not Attempted Safety concerns 08/13/2022 1:0 0 PM CDRaudel Dias, PT CARE Score - Walking 10 Feet on Uneven Surfaces 88 08/13/2022 1:00 PM CDT Odell Ferrara s, PT * 1 Step (Curb) Question Answer Date of Assessment Author Assistance Needed Physical assistance 08/13/2022 1:00 PM CDRaudel Dias, PT Physical Assistance Level 25% or less 08/13/2022 1:00 PM CDRaudel Dias, P T CARE Score - 1 Step (Curb) 3 08/13/2022 1:00 PM CDT Raudel Ferrara, P T * 4 Steps Question Answer Date of Assessment Author Assistance Needed Physical assistance 08/13/2022 1:00 PM CDRaudel Dias, PT Physical Assistance Level 25% or less 08/13/2022 1:00 PM CDRaudel Dias, P T CARE Score - 4 Steps 3 08/13/2022 1:00 PM C DT Raudel Ferrara, PT * 12 Steps Question Answer Date of Assessment Author Reason if not Attempted Safety concerns 08/13/2022 1:0 0 PM CDRaudel Dias, PT CARE Score - 12 Steps 88 08/13/2022 1:00 PM CDT Raudel Ferrara, PT * Picking Up Object Question Answer Date of Assessment Author Reason if not Attempted Safety concerns 08/13/2022 1:0 0 PM CDT Raudel Ferrara, PT CARE Score - Picking Up Object 88 08/13/2022 1:00 PM CDT Raudel Ferrara, P T * Wheel 50 Feet with Two Turns Question Answer Date of Assessment Author Reason if not Attempted Activity not applicable 08/13/2022 1:00 PM CDT Odell Ferrara, PT CARE Score - Wheel 50 Feet with Two Turns 9 08/13/2022 1:00 PM CDT Raudel Ferrara, P T * Wheel 150 Feet Question Answer Date of Assessment Author Reason if not Attempted Activity not applicable 08/13/2022 1:00 PM CDT Odell Ferrara, PT CARE Score - Wheel 150 Feet 9 08/13/2022 1:00 PM CDT Raudel Ferrara, P T Type of Wheelchair/Scooter Manual 08/13/2022 1:00 PM CDT Raudel Ferrara P T * Uses a Wheelchair/Scooter? Answer Date of Assessment Author No 08/13/2022 1:00 PM CDT Marlena Ferrara, PT * AUDIT-C Score Answer Date of Assessment Author 0 08/12/2022 1:53 PM CDT Ladonna Ayers, BACK LINE COOK * Question Answer Date of Assessment Author Little interest or pleasure in doing things Not at all 08/12/2022 2:22 PM CDT Yissel Ayers , BACK LINE COOK Feeling down, depressed, or hopeless Not at all 08/12/2022 2:22 PM CDT Yissel Ayers , BACK LINE COOK Trouble falling or staying asleep, or sleeping too much Several days 08/12/2022 2:22 PM CDT Miles Ayers, BACK LINE COOK Feeling tired or having little energy Several days 08/12/2022 2:22 PM CDT Yissel Ayers , BACK LINE COOK Poor appetite or overeating Not at all 08/12/2022 2: 22 PM CDT Yissel Ayers, BACK LINE COOK Feeling bad about yourself - or that you are a failure or have let yourself or your family down Not at all 08/12/2022 2:22 PM Yissel Doshi MSW Trouble concentrating on things, such as reading the newspaper or watching television Not at all 08/12/2022 2:22 PM Yissel Doshi MSW Moving or speaking so slowly that other people could have noticed? Or the opposite - being so fidgety or restless that you have been moving around a lot more than usual. Not at all 08/12/2022 2:22 PM Yissel Doshi MSW Thoughts that you would be better off or hurting yourself in some way Not at all 08/12/2022 2:22 PM Yissel Doshi MSW Patient Health Questionnaire-9 Score 2 08/12/2022 2:22 PM Yissel Doshi MSW * Alcohol Use Question Answer Date of Assessment Author Q1: [...] 08/12/2022 1:53 PM Yissel Doshi MSW * Integumentary Question Answer Date of Assessment Author Skin Color Appropriate for ethnicity 08/15/2022 1:00 PM BENJAT Beatriz Corral RN Skin Condition/Temp Warm;Dry 08/15/2022 1 :00 PM Beatriz Dhillon RN Skin Integrity Bruising 08/15/2022 1:00 PM Beatriz Dhillon RN Skin Turgor Non-tenting 08/15/2022 1:00 PM BENJAT Beatriz Corral RN Integumentary Additional Assessments Yes-Elvis 08/14/2022 12:20 PM BENJAT Beatriz Corral RN Integumentary (WDL) WDL 08/15/2022 8:59 PM CDT Cassi Dumont RN Skin Location abdomen, Lt femur 08/15/2022 1:0 0 PM CDT Beatriz Corral RN * Question Answer Date of Assessment Author Special Mattress Pressure relief overlay 08/15/2022 8: 59 PM CDT Cassi Dumont RN * Question Answer Date of Assessment Author BP Location Right arm 08/15/2022 8:59 PM BENJAT Cassi Dumont RN BP Method Manual 08/15/2022 8:59 PM CDT Cassi Dumont RN * Question Answer Date of Assessment Author Mood Content 08/15/2022 1:00 PM CDT Beatriz Hensley RN * Question Answer Date of Assessment Author Percent Meal Eaten (%) 25 08/15/2022 4:30 PM CDT Mariel Baca * Question Answer Date of Assessment Author Bed In Lowest Position Yes 08/15/2022 11:00 P M CDT Falcon, [facility] Bed Wheels Locked Yes 08/15/2022 11:00 PM CDT Falcon, [facility] * Fall Risk Interventions Question Answer Date of Assessment Author All Low Fall Interventions Applied Yes 08/15/2022 10:00 PM BENJAT Cassi Dumont RN All Moderate Fall Interventions Applied Yes 08/15/2022 10:00 PM CDT Cassi Dumont RN All Moderate Fall Risk Interventions EXCEPT: Fall risk sign with education;Fall risk armband;Gait belt at bedside;Assist with activity and transfers;PT eval requested or obtained;OT eval requested or obtained;Non-skid footwear/socks 08/12/2022 12:26 PM CDT Ronald Ramirez RN All High Fall Risk Interventions Applied Yes 08/15/2022 10:00 PM CDT Cassi Dumont RN All High Risk Interventions EXCEPT: Bed alarm;Chair alarm;Fall risk sign with education 08/12/2022 12:26 PM BENJAT Ronald Ramirez RN Additional Interventions Applied Bed/chair alarm 08/14/2022 12:00 PM CDT Beatriz Corral RN * Question Answer Date of Assessment Author Hygiene Level of Assistance Independent 08/13/2022 2:00 AM BENJAT Shelly Garcia RN Toileting: Assistance with Up to bathroom toilet 08/15/2022 8:59 PM BENJAT Cassi Dumont RN Toileting: Level of assistance Minimal 08/15/2022 8:59 PM BENJAT Cassi Dumont RN Perineal Care Dinora Care 08/13/2022 2:00 AM CDT Shelly Garcia RN Bath Bathed/showered with chlorhexidine (CHG) 08/14/2022 8:30 AM CDT Ashleigh Potter RN * ADL Screening Question Answer Date of Assessment Author Patient's Vision Adequate to Safely Complete Daily Activities Yes 08/12/2022 1:00 PM BENJAT Ronald Ramirez RN Patient's Judgement Adequate to Safely Complete Daily Activities Yes 08/12/2022 1:00 PM CDT Anthony Ramirez RN Patient's Memory Adequate to Safely Complete Daily Activities Yes 08/12/2022 1:00 PM CDT Ronald Ramirez RN Patient Able to Express Needs/Desires Yes 08/12/2022 1:00 PM CDT Ronald Ramirez RN Dressing Needs assistance 08/12/2022 1:00 PM CDT Ronald Mishra RN Grooming Needs assistance 08/12/2022 1:00 PM CDT Ronald Mishra RN Feeding Needs assistance 08/12/2022 1:00 PM BENJAT Ronald Mishra RN Bathing Needs assistance 08/12/2022 1:00 PM BENJAT Ronald Mishra RN Toileting Needs assistance 08/12/2022 1:00 PM CDT Ronald Mishra RN In/Out Bed Needs assistance 08/12/2022 1:00 PM CDT Ronald Mishra RN Walks in Home Needs assistance 08/12/2022 1:00 PM BENJAT Ronald Ramirez RN Weakness of Legs Both 08/12/2022 1:00 PM CDT Ronald Mishra RN Weakness of Arms/Hands None 08/12/2022 1:00 PM BENJAT Ronald Ramirez RN Hearing - Right Ear Functional 08/12/2022 12:26 PM Ronald Hollingsworth RN Hearing - Left Ear Functional 08/12/2022 12:26 PM CD T Ronald Ramirez RN Dominant hand? Right 08/12/2022 1:00 PM CDT Ronald Barnes RN Decline in ADLs in last 2 weeks? No 08/12/2022 12:26 PM CDT Ronald Ramirez R N * Therapy Consults Question Answer Date of Assessment Author PT Evaluation Needed 1 08/12/2022 12:26 PM Ronald Flowers RN OT Evaluation Needed 1 08/12/2022 12:26 PM BENJAT Ronald Ramirez RN HOUSEHOLD PERSONAL ASSISTANT Evaluation Needed 1 08/12/2022 12:26 PM BENJAT Ronald Ramirez RN * Assistive Devices Question Answer Date of Assessment Author Assistive Devices/DME None 08/12/2022 12:26 PM BENJAT Ronald Ramirez RN * Over the past 2 weeks, how often have you been bothered by any of the following problems? Question Answer Date of Assessment Author Patient Health Questionnaire -2 Score 0 08/12/2022 2:22 PM CDT Yissel Ayers , BACK LINE COOK * Hearing, Speech, and Vision Question Answer Date of Assessment Author Expression of Ideas and Wants Frequent difficulty 08/12/2022 2:19 PM CDT Bell Moffett, HOUSEHOLD PERSONAL ASSISTANT Understanding Verbal and Non-Verbal Content Understands 08/12/2022 2:19 PM CDT Bell Moffett, HOUSEHOLD PERSONAL ASSISTANT Ability to Hear Minimal difficulty 08/12/2022 2:19 PM CDT Bell Moffett, HOUSEHOLD PERSONAL ASSISTANT Ability to See in Adequate Light Impaired 08/12/2022 2:19 PM CDT Bell Moffett, HOUSEHOLD PERSONAL ASSISTANT * How difficult have these problems made it for you to do your work, take care of things at home, or get along with other people? Answer Date of Assessment Author Not difficult at all 08/12/2022 2:22 PM CDT Yissel Givens, BACK LINE COOK * Over the past 2 weeks, how often have you been bothered by any of the following problems? Question Answer Date of Assessment Author Little interest or pleasure in doing things Not at all 08/12/2022 2:22 PM Yissel Doshi , BACK LINE COOK Feeling down, depressed, or hopeless Not at all 08/12/2022 2:22 PM CDT Yissel Ayers MSW Trouble falling or staying asleep, or sleeping too much Several days 08/12/2022 2:22 PM CDT Miles Ayers, BACK LINE COOK Feeling tired or having little energy Several days 08/12/2022 2:22 PM CDT Yissel Ayers , BACK LINE COOK Poor appetite or overeating Not at all 08/12/2022 2: 22 PM CDT Yissel Ayers, BACK LINE COOK Feeling bad about yourself - or that you are a failure or have let yourself or your family down Not at all 08/12/2022 2:22 PM BENJAT Yissel Ayers , BACK LINE COOK Trouble concentrating on things, such as reading the newspaper or watching television Not at all 08/12/2022 2:22 PM CDT Yissel Ayers , BACK LINE COOK Moving or speaking so slowly that other people could have noticed? Or the opposite - being so fidgety or restless that you have been moving around a lot more than usual. Not at all 08/12/2022 2:22 PM Yissel Doshi , BACK LINE COOK Thoughts that you would be better off or hurting yourself in some way Not at all 08/12/2022 2:22 PM Yissel Doshi, BACK LINE COOK Patient Health Questionnaire-9 Score 2 08/12/2022 2:22 PM CDT Yissel Ayers, BACK LINE COOK * Nutrition Question Answer Date of Assessment Author Feeding Level of Assistance Able to feed self 08/15/2022 8:30 AM BENJAT Sailaja Adam RN Appetite Fair 08/14/2022 8:30 AM CDT Ashleigh Sorto RN documented as of this encounter Mental Status * Question Answer Entry Date Author Level of Consciousness Alert;Awake 8:59 PM BENJAT Cassi Dumont RN Orientation Oriented X4 (person, place, time, situation) 08/15/2022 8:59 PM BENJAT Cassi Dumont RN Neuro (WDL) X 08/15/2022 8:59 PM BENJAT Cassi Dumont RN Other Neuro Symptoms Forgetful 08/14/2022 8:29 AM BENJAT Tariq, Ashleigh M., RN * Cognitive Pattern Assessment Used Answer Entry Date Author BIMS 08/12/2022 2:19 PM Mikaela Sandoval SLP * Brief Interview for Mental Status (BIMS) Question Answer Entry Date Author Repetition of Three Words (First Attempt) 3 08/12/2022 2:19 PM Bell Sandoval SLP Temporal Orientation: Year Correct 08/12/2022 2:19 PM Bell Sandoval SLP Temporal Orientation: Month Accurate within 5 days 08/12/2022 2:19 PM Bell Sandoval SLP Temporal Orientation: Day Correct 08/12/2022 2:19 PM Bell Sandoval SLP Recall: Sock Yes, after cueing (something to wear) 08/12/2022 2:19 PM Bell Sandoval SLP Recall: Blue Yes, no cue required 08/12/2022 2:19 PM Bell Sandoval SLP Recall: Bed Yes, after cueing ( a piece of furniture) 08/12/2022 2:19 PM Bell Sandoval SLP BIMS Summary Score 13 08/12/2022 2: 19 PM Bell Sandoval SLP documented in this encounter Miscellaneous Notes * Pre-Admission Screening - Kimberly Gibbons SLP - 08/12/2022 9:[address] [facility] Physical Medicine and Rehabilitation Preadmission Screening Reason for Consult: Abena Giorn is a 82 y.o. female with a medical diagnosis of left CVA and Rehab Diagnosis: L CVA whose probable impairment code for inpatient rehabilitation is: Impairment CodeGroup: Stroke Stroke: Right Body Involvement (Left Brain) The following information was gathered for consideration and maintenance in the medical record to substantiate medical necessity for IRF level of care. Patient is currently at [facility] . The patient is being referred [...] Payor Source: Primary: Medicare A&B Secondary:Policy number: [id number] Case discussed with Dr. Nena Oneal on [...] Use: Not on file Patient's Preferred Language: [place]ar[place] Cultural Requests During Hospitalization: none conveyed Acute [...] DAPT who presents after receiving TNK at [facility] as a thrombectomy page. Per the patient's family at bedside, the patient was having lunch with one of her daughters when her daughter noticed that she started leaning towards the right. She subsequently became mute and developed a left gaze preference. Her last known normal was 1305. She wastaken to [facility], there her NIHSS was reportedly a [address] physician[address]. Gomez evaluated the patient by telestroke and recommended a CTH + CTA head and neck. She had a hyperdense left MCA sign on CTH and a left M1 occlusion on CTA. She was a GO for TNK and received the drug at 1423.She was then transferred to [facility] for thrombectomy evaluation. On arrival her NIHSS [...] DAPT who presents after receiving TNK at [facility] as a thrombectomy page. The patient is GO for MT, she will need repeat labs to ensure that the values are real. If they arethen she will need a workup for metabolic acidosis. Moreover, she has pulmonary edema on CT CAP that needs follow up. Disposition: Thrombectomy then ICU 08/03/22: Neuro Critical Care Admission H&P CC: [...] BP of 68/31. She was taken to [facility] for further evaluation as a Code [...] of TNK at 14:28 and transferred to [facility] ED for mechanical thrombectomy evaluation. Upon arrival to [facility] ED her vital signs were: HR 82, [...] RA lead revision on 09/14/18 done at [facility]), non-morbid obesity (BMI 30), GENNY non compliant with CPAP, PAD and carotid artery stenosis who presented to [facility] on 08/03/22 with R si ded hemiparesis, [...] their arrival. She was initially taken to [facility] to evaluation for stroke. Her BP's improved to 109/[address] Head showed a large hyperdense MCA without hemorrhage, then subsequent CTA Head/Neck showed complete occlusion of theM1 segment of the L MCA. There were also carotid stenoses in the proximal LICA (80%) and proximal SKYLAR (50%). Ms Giron was then transferred to [facility] for tPA and thrombectomy. Ms Giron had an UT in 2013 requiring JOI to mid LCx performed at [facility]. Subsequently shedeveloped atrial fibrillation and tachy-hailey [...] Work-up: - Monitor on telemetry Consults: SMART (Real Time Analyst, PT/OT, HOUSEHOLD PERSONAL ASSISTANT, Spiritual Care) #Hyperlipidemia LDL on admission was 68. Goal LDL for secondary stroke prevention is <70. She has previously refused anti-lipid medication reporting feeling unwell on medicaiton and with muscle pain without weakness. # CAD s/p UT with stent placement (2013) # HFrEF (LVEF 20%, was LVEF 40% in 2019) She follows with Dr. Hernandez [facility] Cardiology - last seen 07/18/22 [...] BID and taking intermittently, however her pharmacy ([facility]) indicates she does not fill this medication [...] in the field was 68/31, 90/45 at [place]. Initially responded to fluid boluses. Noted to [...] BP of 68/31. She was taken to [facility] for further evaluation as a Code [...] of TNK at 14:28 and transferred to [facility] ED for mechanical thrombectomy evaluation. Upon arrival to [facility] ED her vital signs were: HR 82, [...] differential for consideration per TOAST criteria include: [id number] embolism or cardioembolism. Cardioembolism is most likely [...] mg PO qHS (SPARCL trial). The current [place] [employer]roke [employer] guidelines recommend long-term treatment with [...] in 2019) She follows with Dr. Hernandez [facility] Cardiology - last seen 07/18/22 [...] BID and taking intermittently, however her pharmacy ([facility]) indicates she does not fillthis medication and [...] admitted to acute: 08/03/22 Precautions/Restrictions: Aspiration, Falls [place] Suicide Severity Rating Scale: Allergies: Allergies Allergen [...] Incontinent Date of last BM: 08/07/22 Integumentary: elvis score 17 Cardiopulmonary: Room air Dialysis: N/A [...] Nightly Capri Curran MD 10 mg at 08/11/22 205 simethicone (MYLICON) 66.7 mg/mL oral drops 40 mg 40 mg feeding tube TID PRN Capri Curran MD 40 mg at 08/11/22 1347 spironolactone (ALDACTONE) split tablet 12.5 mg 12.5 mg oral Daily Capri Curran MD 12.5 mg at 08/11/22 0839 [DISCONTINUED] aluminum-magnesium hydroxide-simethicone (MAALOX) 40-40-4 mg/mL oral suspension 30 mL 30 mL oral QID PRN Carpi Curran MD [DISCONTINUED] furosemide (LASIX) tablet 20 [...] 40 mg 40 mg feeding tube TID Capri Boone MD 40 mg at 08/11/22 1050 Current [...] bed mobility SBA (08/12/2022 9:31 AM) Cognition/Communication/Swallowing: HOUSEHOLD PERSONAL ASSISTANT Communication: expressive aphasia (08/12/2022 9:31 AM) HOUSEHOLD PERSONAL ASSISTANT Swallowing: Mild Dysphagia - pureed/thin (08/12/2022 9:31 [...] by a provider, Intense PT/OT/SP, Access to Machine Applicator Cementer physicians, Supervised feeding groups, Frequent Neuroassessment, Bowel [...] the intensive Inpatient rehabilitation program offered at [facility] . documented in this encounter Plan of Treatment Not on file documented as of this encounter Visit Diagnoses Not on filedocumented in this encounter Care Teams Funds Transfer Clerk Relationship Specialty Start Date End Date Jaleel Mcgovern MD PCP - General Family Practice 07/18/22 Reynaldo Flannery DO Consulting Physician Cardiology 09/26/17 Guanakito Holland MD Consulting Physician Cardiovascular Disease 07/29/18 documented as of this encounter
--- OUTSIDE RECORDS SUMMARY | 2025-03-09 17:23 | XMS_ITS | Encounter Summary ---
Author Organization [facility] Healthcare Address [address] [place] [address] Care Team Providers Care School Librarian Name Role Phone Reynaldo Flannery DO Unavailable [phone] Guanakito Holland MD Unavailable [phone] Jaleel Mcgovern MD Primary Care Provider [phone] Encounter Details Date Type Department Care Team (Late st Contact Info) Description 05/21/2024 Orders Only [facility] [place] [address] [place] [id number] Scanning, Provider Social History Tobacco Use [...] or relatives? 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
--- OUTSIDE RECORDS SUMMARY | 2025-03-09 17:23 | XMS_ITS | Encounter Summary ---
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
--- OUTSIDE RECORDS SUMMARY | 2025-03-09 17:23 | XMS_ITS | Encounter Summary ---
Author Organization [facility] Healthcare Address [address] [place] [address] Care Team Providers Care Reel Repairer Name Role Phone Reynaldo Flannery DO Unavailable [phone] Guanakito Holland MD Unavailable [phone] Jaleel Mcgovern MD Primary Care Provider [phone] Encounter Details Date Type Department Care Team (Late st Contact Info) Description 06/21/[address] [facility] Health Information Management [address] [place] [id number] Scanning, Provider Social History Tobacco Use [...] or relatives? 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
== END 2025-03-09 14:32 | disposition home or self-care (01) ==
PROVIDERS: PCP Nurse Practitioner Family; Visit Provider Family Medicine
DX: I50.9 Heart failure, unspecified (principal); J90 Pleural effusion, not elsewhere classified; J06.9 Acute upper respiratory infection, unspecified
CPT/HCPCS: 71046